=== PATIENT | female | born 1945 | race Caucasian/White ===

== ENCOUNTER 2016-12-03 15:20 | Emergency (ER) | payer MEDICARE, OTHER ==
[~2016-12-03] VITALS: Ht 162.6 cm; Wt 59.0 kg
[~2016-12-03 15:20] MED LIST: BENTYL10 MG PO; BISACODYL10 MG RC; BUPROPION XL300 MG PO; CHILDREN'S ASPI81 MG PO; CYCLOBENZAPRINE10 MG PO; CYCLOBENZAPRINE5 MG PO; GABAPENTIN400 MG PO; GAS-X80 MG PO; IMDUR60 MG PO; KLOR-CON 1010 MEQ PO; LASIX40 MG PO; LEVAQUIN500 MG PO; LIPITOR80 MG GT; LIPITOR80 MG PO; LISINOPRIL5 MG PO; MORPHINE SULFATE PO; MS CONTIN60 MG PO; NAPROXEN375 MG PO; NAPROXEN500 MG PO; NITROGLYCERIN0.4 MG SL; NORCO 5-325 TA1 EACH PO; PERCOCET 10-321 EACH PO; PLAVIX75 MG PO; PREDNISONE20 MG PO; PROVENTIL HFA6.7 GM INH; PYRIDIUM200 MG PO; SENOKOT-S TABL1 EACH PO; SULFAMETHOXAZO1 EAC1 PO; TOPROL XL50 MG PO
== END 2016-12-03 15:49 | disposition home or self-care (01) ==
LOC: ED 15:20
PROC: 0HQ4XZZ Repair Neck Skin, External Approach (ICD-10-PCS; principal; 2016-12-03)
DX: S01.01XA Laceration without foreign body of scalp, initial encounter (principal); I25.10 Atherosclerotic heart disease of native coronary artery without angina pectoris; Z98.84 Bariatric surgery status; Z90.49 Acquired absence of other specified parts of digestive tract; Z88.5 Allergy status to narcotic agent; Z79.899 Other long term (current) drug therapy; X58.XXXA Exposure to other specified factors, initial encounter
CPT/HCPCS: 12001; 90471; 90715; 99282

== ENCOUNTER 2017-06-07 07:49 | Emergency (ER) | payer MEDICARE, OTHER ==
[~2017-06-07] VITALS: Ht 162.6 cm; Wt 59.0 kg
--- OUTSIDE RECORDS SUMMARY | ~2017-06-07 | XMS | Clinical Summary ---
Demographics + + + | Address | [address] | | | [place] [address] | + + + | Home Phone | | + + + | Preferred Language | Unknown | + + + | Marital Status | | + + + | Muslim Affiliation | PRO | + + + | Race | White | + + + | Ethnic Group | Not or | + + + Author + + + | Author | [facility] | + + + | Organization | [facility] | + + + | Address | Unknown | + + + | Phone | Unavailable | + + + Support + + + + + | Name | Relationship | Address | Phone | + + + + + | [place] | ECON | [address] | | | | | [place] | | | | | [address] | | + + + + + Care Team Providers + +------+ + | Care Vessel Welder Name | Role | Phone | + +------+ + | Tuan Chan MD | PP | | + +------+ + Source Comments AMY is fully live on both [facility] and [facility] Allergies + + + + + [...] | | | | (FLU SHOT) | 7 | | | + + + + + Results Not on filefrom Last 3 Months
--- OUTSIDE RECORDS SUMMARY | ~2017-06-07 | XMS | Clinical Summary ---
Demographics + + + | Address | [address] | | | [place] [address] | + + + | Home Phone | | + + + | Preferred Language | Unknown | + + + | Marital Status | | + + + | Gnosticist Affiliation | PRO | + + + | Race | White | + + + | Ethnic Group | Not or | + + + Author + + + | Author | [facility] | + + + | Organization | [facility] | + + + | Address | Unknown | + + + | Phone | Unavailable | + + + Support + + + + + | Name | Relationship | Address | Phone | + + + + + | [address] [address] | ECON | [address] | | | | | [place] | | | | | [address] | | + + + + + Care Team Providers + +------+ + | Care Reflow Operator Name | Role | Phone | + +------+ + | Tuan Chan MD | PP | | + +------+ + Source Comments AMY is fully live on both [facility] Amb[facility] and [facility] InPatient.Replaced By [facility] Allergies + + + + [...]
[2017-09-08] MEDS ORDERED: KETOROLAC TROME10 MG PO (13:19)
== END 2017-06-07 08:51 | disposition home or self-care (01) ==
LOC: ED 07:49
DX: S63.501A Unspecified sprain of right wrist, initial encounter (principal); S53.409A Unspecified sprain of unspecified elbow, initial encounter; Z87.891 Personal history of nicotine dependence; Z88.5 Allergy status to narcotic agent; Z79.899 Other long term (current) drug therapy; W01.0XXA Fall on same level from slipping, tripping and stumbling without subsequent striking against object, initial encounter
CPT/HCPCS: 73080; 73110; 99283

== ENCOUNTER 2017-07-11 19:11 | Emergency (ER) | payer MEDICARE, OTHER ==
[~2017-07-11] VITALS: Ht 162.6 cm; Wt 72.6 kg
--- OUTSIDE RECORDS SUMMARY | ~2017-07-11 | XMS | Clinical Summary ---
Demographics + + + | Address | [address] | | | [place] [address] | + + + | Home Phone [...] [facility] | | | and [place] | + + + | Organization | [facility] | | | and [place] | + + + | Address | Unknown | + + + | Phone | Unavailable | + + + Support + + +---------+ + | Name | Relationship | Address | Phone | + + +---------+ + | [place] BLANK[place]IP | ECON | Unknown | | + + +---------+ + | Najma Krishnamurthy | ECON | Unknown | | + + +---------+ + | Najma Sanches | ECON | Unknown | | + + +---------+ + Care Team Providers + +------+ + | Care Respiratory Technician Name | Role | Phone | + +------+ + | Tuan Chan MD | PP | | + +------+ + Allergies + + + + + + | Active Allergy | Reactions | Severity | Noted | Comments | | | | | Date | | + + + + + + | Codeine | Rash | Low | 06/12/19 | | | | | | 16 | | + + + + + + Current Medications + + +--------+---------+------+------+-------+ | Prescription | Sig. | Disp. | Refills | Star | End | Statu | | | | | | t | Date | s | | | | | | Date | | | + + +--------+---------+------+------+-------+ | metoprolol | Take 25 mg by mouth | | | | | Activ | | succinate | Daily. | | | | | e | | (TOPROL-XL) 25 mg 24 | | | | | | | | hr tablet | | | | | | | + + +--------+---------+------+------+-------+ | clopidogrel | Take 75 mg by mouth | | | | | Activ | | (PLAVIX) 75 mg | Daily. | | | | | e | | tablet | | | | | | | + + +--------+---------+------+------+-------+ | lisinopril | Take 20 mg by mouth | | | | | Activ | | (PRINIVIL, ZESTRIL) | Daily. | | | | | e | | 20 mg tablet | | | | | | | + + +--------+---------+------+------+-------+ | potassium chloride | Take 10 mEq by mouth | | | | | Activ | | (K-DURRAJI-CON) 10 | Daily. | | | | | e | | MEQ ER tablet | | | | | | | + + +--------+---------+------+------+-------+ | dicyclomine | Take 10 mg by mouth | | | | | Activ | | (BENTYL) 10 mg | every 6 hours as | | | | | e | | capsule | needed (take 1-2 | | | | | | | | tablets by mouth | | | | | | | | every 6 hours as | | | | | | | | needed for abdominal | | | | | | | | pain). | | | | | | + + +--------+---------+------+------+-------+ | morphine (MSIR) 30 | Take 30 mg by mouth | | | | | Activ | | MG tablet | 2 times daily. Take | | | | | e | | | 1 tablet by mouth at | | | | | | | | 2 am and 1 tablet | | | | | | | | and 2 pm | | | | | | + + +--------+---------+------+------+-------+ | | Take 1 tablet by | | | | | Activ | | oxyCODONE-acetaminop | mouth 4 times daily | | | | | e | | hen (PERCOCET) | as needed for Pain. | | | | | | | 10-325 mg per tablet | | | | | | | + + +--------+---------+------+------+-------+ | atorvaSTATin | Take 1 tablet by | 30 | 1 | 03/1 | | Activ | | (LIPITOR) 80 MG | mouth nightly. | tablet | | 420 | | e | | tablet | | | | 16 | | | + + +--------+---------+------+------+-------+ | miconazole | Bid to rash | 14 g | 1 | 05/29 | | Activ | | (MICATIN) 2% cream | | | | 4/20 | | e | | | | | | 16 | | | + + +--------+---------+------+------+-------+ Active Problems + + + | Problem | Noted Date | + + + | Coronary artery disease involving coronary bypass graft with | 06/12/2015 | | unstable angina pectoris (HCC) | | + + + | Stented [...] pain | 06/11/2015 | + + + Social History + +-------+ [...] on file | | + + + Last Filed Vital Signs + + + + | Vital Sign | Reading | Time Taken | + + + + | Blood Pressure | 163/64 | 06/12/2015726 PDT | + + + + | Pulse | 71 | 06/12/2015726 PDT | + + + + | Temperature | 36.7 C (98.1 F) | 06/12/2015726 PDT | + + + + | Respiratory Rate | 14 | 06/12/2015726 PDT | + + + + | Oxygen Saturation | 96% | 06/12/2015726 PDT | + + + + | Inhaled Oxygen | - | - | | Concentration | | | + + + + | Weight | 78.1 kg (172 lb 2.9 | 06/12/201550 PDT | | | oz) | | + + + + | Height | 162.6 cm (5' 4") | 06/11/2015 2200 PDT | + + + + | Body Mass Index | 29.55 | 06/12/2015 0051 PDT | + + + + Plan of Treatment + + + + + | Health Maintenance | Due Date | Last Done | Comments | + + + + + | Hepatitis C | | | | | Screening | 5 | | | + + + + + | Vaccine: | | | | | Dtap/Tdap/Td (1 - | 4 | | | | Tdap) | | | | + + + + + | BREAST CANCER | | | | | SCREENING (MAMM Q2 | 5 | | | | YEARS 50-74) | | | | + + + + + | COLON CANCER | | | | | SCREENING | 5 | | | | (COLONOSCOPY EVERY | | | | | 10 YEARS 50-75) | | | | + + + + + | Vaccine: Zoster (#1) | | | | | | 5 | | | + + + + + | Vaccine: | | | | | Pneumococcal 65+ | 0 | | | | Low/Medium Risk (1 | | | | | of 2 - PCV13) | | | | + + + + + | Vaccine: Influenza | | | | | (Season Ended) | 8 | | | + + + + + Results Not on filefrom Last 3 Months Insurance + +--------+ +--------+ +---------+ | Payer | Benefi | Subscriber | Type | Phone | Address | | | t Plan | ID | | | | | | / | | | | | | | Group | | | | | + +--------+ +--------+ +---------+ | MEDICARE | MEDICA | xxxxxxxxxx | Medica | [phone] | | | | RE | | re | [phone] | | | | PART A | | | | | | | AND B | | | | | + +--------+ +--------+ +---------+ | [place]ICAID [place] | MEDICA | xxxxxxxx | Medica | [phone] | | | [place] | | id | [phone] | | | | PLUS | | | | | + +--------+ +--------+ +---------+ + +--------+ +--------+ + + | Guarantor Name | Accoun | Relation to | Date | Phone | Billing Address | | | t Type | Patient | of | | | | | | | | | | + +--------+ +--------+ + + | GERMAINE CARIAS | Person | Self [birth year] Home: | [address] | | D | al/Fam | | 1946 | [phone] | [address] [place], | | | [place] | | | [address] | [place] [address] | + +--------+ +--------+ + +
--- OUTSIDE RECORDS SUMMARY | ~2017-07-11 | XMS | Clinical Summary ---
Demographics + + + | Address | [address] | | | [place] [address] | + + + | Home Phone | | + + + | Preferred Language | Unknown | + + + | Marital Status | | + + + | Catholic Affiliation | PRO | + + + | Race | White | + + + | Ethnic Group | Not or | + + + Author + + + | Author | [facility] | + + + | Organization | [facility] | + + + | Address | Unknown | + + + | Phone | Unavailable | + + + Support + + + + + | Name | Relationship | Address | Phone | + + + + + | [place] | ECON | [address] | | | | | [place] | | | | | [address] | | + + + + + Care Team Providers + +------+ + | Care Embroidery Designer Name | Role | Phone | + +------+ + | Tuan Chan MD | PP | | + +------+ + Source Comments AMY is fully live on both [facility] Ambulatory and [facility] InPatient.Replaced By [facility] Allergies + + + + + + | Active Allergy | Reactions | Severity | Noted | Comments | | | | | Date | | + + + + + + | Codeine | Hives, Rash | | 11/21/19 | | | | | | 06 | | + + + + + + Current Medications + + +---------+---------+------+------+-------+ | Prescription | Sig. | Disp. | Refills | Star | End | Statu | | | | | | t | Date | s | | | | | | Date | | | + + +---------+---------+------+------+-------+ | ALBUTEROL 90 | inhale 1 puff by | | | | | Activ | | MCG/ACTUATION | inhalation route | | | | | e | | AEROSOL INHALER | every 4-6 hours as | | | | | | | | needed | | | | | | + + +---------+---------+------+------+-------+ | bumetanide 1 mg | 1 tab daily | | | | | Activ | | Oral Tablet | | | | | | e | + + +---------+---------+------+------+-------+ | buPROPion SR | 1 tablet daily | | | | | Activ | | (WELLBUTRIN SR) 150 | | | | | | e | | mg Oral Tablet | | | | | | | | Sustained Release | | | | | | | + + +---------+---------+------+------+-------+ | lisinopril 5 mg | take 1 tablet (5 mg) | | | | | Activ | | Oral Tablet | by oral route once | | | | | e | | | daily | | | | | | + + +---------+---------+------+------+-------+ | | Take 1 Tab by mouth | | | | | Activ | | oxyCODONE-acetaminop | every six hours as | | | | | e | | hen (PERCOCET) | needed. Not to | | | | | | | 10-325 mg Oral | exceed 12 tablets | | | | | | | tablet | per any 24 hour | | | | | | | | period. | | | | | | + + +---------+---------+------+------+-------+ | morphine ER 60 mg | Take 60 mg by mouth | | | | | Activ | | Oral tablet extended | once daily. | | | | | e | | release | | | | | | | + + +---------+---------+------+------+-------+ | potassium chloride | Take 10 mEq by mouth | | | | | Activ | | SR 10 mEq Oral | once daily. | | | | | e | | tablet,ER | | | | | | | | particles/crystals | | | | | | | + + +---------+---------+------+------+-------+ | metoprolol | Take 50 mg by mouth | | | | | Activ | | succinate 50 mg Oral | once daily. | | | | | e | | tablet extended | | | | | | | | release 24 hr | | | | | | | + + +---------+---------+------+------+-------+ | acetaminophen 325 | Take 1-2 Tabs by | | | 01/2 | | Activ | | mg Oral tablet | mouth every six | | | 5/20 | | e | | | hours as needed. | | | 13 | | | + + +---------+---------+------+------+-------+ | white | Instill 1 Each into | 3.5 g | 0 | /2 | | Activ | | petrolatum-mineral | the left eye once | | | 20 | | e | | oil 83-15 % | daily at bedtime. | | | 13 | | | | Ophthalmic Ointment | | | | | | | + + +---------+---------+------+------+-------+ | triamcinolone | Apply to affected | 15 g | 0 | /2 | | Activ | | acetonide 0.1 % | area two times | | | 20 | | e | | Topical Ointment | daily. Apply thin | | | 13 | | | | | film to affected | | | | | | | | areas. | | | | | | + + +---------+---------+------+------+-------+ | clopidogrel | Take 1 Tab by mouth | 1 Tab | 0 | /2 | | Activ | | (PLAVIX) 75 mg Oral | once daily. Do not | | | 08/17 | | e | | tablet | re-start this | | | 13 | | | | | medication until | | | | | | | | 04/29/2012. | | | | | | + + +---------+---------+------+------+-------+ Active Problems + + + | Problem | Noted Date | + + + | Cervical spine fracture (HCC) | 04/21/2012 | + + + | Abdominal hernia | 08/05/2008 | + + + + + | Overview: ICD10 | + + + + + | Panniculitis | 01/15/2008 | + + + | Intertrigo | 01/15/2008 | + + + | Achalasia | 03/03/2006 | + + + | Obesity | 03/03/2006 | + + + | Dysmetabolic syndrome X | 11/21/2005 | + + + | CAD (coronary artery disease) | 11/21/2005 | + + + | Sleep apnea | 11/21/2005 | + + + | Gout | 11/21/2005 | + + + | Type II or unspecified type diabetes mellitus with peripheral | 11/21/2005 | | circulatory disorders, uncontrolled(250.72) | | + + + | Dyslipidemia | 11/21/2005 | + + + Immunizations + + + + | Name | Dates Previously Given | Next Due | + + + + | Pneumococcal 23 | 04/24/2012 | | + + + + Family History + + +------+ + | Medical History | Relation | Name | Comments | + + +------+ + | Heart Disease | Brother | | CHF | + + +------+ + | Diabetes | Mother | | | + + +------+ + | Heart Disease | Mother | | | + + +------+ + + +------+--------+ + | Relation | Name | Status | Comments | + +------+--------+ + | Brother | | | | + +------+--------+ + | Mother | | | | + +------+--------+ + Social History + + + +--------+ [...] Pressure | 139/83 | 04/24/2012 7:44 AM PST | + + + + | Pulse | 57 | 04/24/2012 7:44 AM PST | + + + + | Temperature | 36.6 C (97.9 F) | 04/24/2012 7:44 AM PST | + + + + | Respiratory Rate | 18 | 04/24/2012 7:44 AM PST | + + + + | Oxygen Saturation | 98% | 04/24/2012 7:44 AM PST | + + + + | Inhaled Oxygen | - | - | | Concentration | | | + + + + | Weight | 84.5 kg (186 lb 4.6 | 04/21/2012 9:45 PM PST | | | oz) | | + + + + | Height | 162.6 cm (5' 4") | 04/22/2012 8:00 AM PST | + + + + | Body Mass Index | 31.98 | 04/21/2012 9:45 PM PST | + + + + Plan of Treatment + + + + + | Health Maintenance | Due Date | Last Done | Comments | + + + + + | INFLUENZA VACCINE | | | | | (FLU SHOT) | 8 | | | + + + + + Results Not on filefrom Last 3 Months
--- OUTSIDE RECORDS SUMMARY | ~2017-07-11 | XMS | Clinical Summary ---
Demographics + + + | Address | [address] | | | [place] [address] | + + + | Home Phone | | + + + | Preferred Language | Unknown | + + + | Marital Status | | + + + | Rastafarian Affiliation | [phone] | + + + | Race | Unknown | + + + | Ethnic Group | Unknown | + + + Author + + + | Author | [facility] | | | and [place] | + + + | Organization | [facility] | | | [...] Team Providers + +------+ + | Care Catcher Plug Name | Role | Phone | + [...] Self | [birth year] | Home: | [address] | | D | al/Fam | | 1946 | [phone] | [address] [place], | | | [place] | | | [phone] | [place] [address] | + +--------+ +--------+ + +
--- OUTSIDE RECORDS SUMMARY | ~2017-07-11 | XMS | Clinical Summary ---
Demographics + + + | Address | [address] | | | [place] [address] | + + + | Home Phone [...] [place] | | | | | [address] | | + + + + + Care Team Providers + +------+ + | Care Gut Snatcher Name | Role | Phone | + +------+ + | Tuan Chan MD | PP | | + +------+ + Source Comments AMY is fully live on both [facility] Ambulatory and [facility] InPatient.[facility] Allergies + + + + [...]
[2017-09-08] MEDS ORDERED: KETOROLAC TROME10 MG PO (13:19)
== END 2017-07-11 21:35 | disposition home or self-care (01) ==
LOC: ED 19:11
DX: E87.6 Hypokalemia (principal); Z86.73 Personal history of transient ischemic attack (TIA), and cerebral infarction without residual deficits; Z87.891 Personal history of nicotine dependence; Z88.5 Allergy status to narcotic agent; Z79.899 Other long term (current) drug therapy
CPT/HCPCS: 80053; 85025; 85610; 85730; 99283

== ENCOUNTER → 2017-09-08 | Emergency (ER) | payer MEDICARE, OTHER ==
[~2017-09-08] VITALS: Ht 162.6 cm; Wt 72.6 kg
[~2017-09-08] MED LIST changes: +KETOROLAC TROME10 MG PO
== END ==
LOC: ED 11:41
DX: R07.81 Pleurodynia (principal); Z86.73 Personal history of transient ischemic attack (TIA), and cerebral infarction without residual deficits; Z87.891 Personal history of nicotine dependence; Z88.5 Allergy status to narcotic agent; Z79.899 Other long term (current) drug therapy; W19.XXXA Unspecified fall, initial encounter
CPT/HCPCS: 71101; 99283

== ENCOUNTER 2017-09-20 15:51 | Emergency (ER) | payer MEDICARE, OTHER ==
[~2017-09-20] VITALS: Ht 162.6 cm; Wt 73.5 kg
[2017-09-20] MEDS ORDERED: MORPHINE SULFAT60 MG PO (16:16)
[2017-09-20] MEDS ORDERED: MORPHINE SULFAT30 M1 PO (16:16)
[2017-09-20] MEDS ORDERED: LIPITOR20 MG (16:17)
[2017-09-20] MEDS ORDERED: HYDROCHLOROTH12.5 M1 PO (16:17)
[2017-09-20] MEDS ORDERED: NORCO 5-325 TA1 EACH PO (18:50)
--- NOTE | 2017-09-22 07:37 | EKG ---
[facility] [address] [place] [address] Signed Normal sinus rhythm Nonspecific T wave abnormality Abnormal ECG Confirmed by RENE BISHOP MD ([id number]) on 09/22/2017 7:37:49 AM Electronically Signed By: RENE BISHOP MD 09/22/17 0737 PATIENT NAME: BUTCH MANE Electrocardiogram DATE OF : 43 PHYSICIAN: RENE BISHOP MD REPORT #: [id number] REPORT IS CONFIDENTIAL AND NOT TO BE RELEASED WITHOUT AUTHORIZATION
== END 2017-09-20 19:19 | disposition home or self-care (01) ==
LOC: ED 15:51 → EDBD 15:52 → ED 15:52
DX: R07.89 Other chest pain (principal); Z79.899 Other long term (current) drug therapy
CPT/HCPCS: 71045; 80053; 84484; 85025; 85610; 93005; 93010; 96374; 99284; J2405

== ENCOUNTER 2018-06-07 08:31 | Emergency (ER) | payer MEDICARE, OTHER ==
[~2018-06-07] VITALS: Ht 162.6 cm; Wt 73.5 kg
[~2018-06-07 08:31] MED LIST changes: +HYDROCHLOROTH12.5 M1 PO; +LIPITOR20 MG; +MORPHINE SULFAT30 M1 PO; +MORPHINE SULFAT60 MG PO
--- OUTSIDE RECORDS SUMMARY | 2018-06-07 08:34 | XMS ---
PreManage Notification: BUTCH MANE Security [place] Events No recent Security Events currently on file CRITERIA MET - [facility] - Has Care Guidelines - POLST - PDMP - [facility] - 2 Visits in 30 Days CARE PROVIDERS Tuan Chan MD Family Medicine Current PHONE: Unknown Tuan Chan MD Primary Care Current PHONE: Unknown orsarah Case or Hand Trimmer Current PHONE: Unknown David has no Care Guidelines for this patient. Care History Medical/Surgical 09/09/2017 [facility] - CHW spoke with patient PCP office. Dr Chan scheduled a follow up visit with patient for Friday09/15/17 @ 1:00PM. - CHW stated the concerns with her fall and to have her medications reviewed for fall risks. - CHW was not able to contact patient and patient voicemail is full and can\T\ #39;t accept calls. This patient has had 5 or more Emergency Department visits in the last 12 months.\T\nbsp; Patient requires education on the scope and purpose of the ED as an acute care provider not a Primary Care Provider and should not be utilized for chronic conditions.\T\nbsp; If patient returns to ED please contact Community Health WorkerLizz at [phone]. These are guidelines and the provider should exercise clinical judgment when providing care. E.D. VISIT COUNT (12 MO.) 2 [facility]. [facility] TOTAL 9 NOTE: Visits indicate total known visits. ED/UCC VISIT TRACKING (12 MO.) 06/07/2018 08:32 [place] [place] TYPE: Emergency COMPLAINT: - CHEST PRESSURE 05/18/2018 15:[address] [place] TYPE: Emergency DIAGNOSES: - Extremity Weakness - Other symptoms and signs involving the musculoskeletal system - Hypokalemia 02/03/2018 10:26 [facility] [place] TYPE: Emergency DIAGNOSES: - Essential (primary) hypertension - Patient's other noncompliance with medication regimen - rash - Rash and other nonspecific skin eruption 01/03/2018 09:16 [place] TYPE: Emergency DIAGNOSES: - Cellulitis of chest wall - Rash 10/09/2017 18:40 [facility] [place] TYPE: Emergency DIAGNOSES: - Abdominal Pain - Person with feared health complaint in whom no diagnosis is made 09/20/2017 15:52 [place] [place] TYPE: Emergency COMPLAINT: - COUGH DIAGNOSES: - Other terminal worker (current) drug therapy - Other chest pain 09/08/2017 11:42 [facility] [place] TYPE: Emergency COMPLAINT: - L RIB PAIN/FALL DIAGNOSES: - Personal history of transient ischemic attack (TIA), and cerebral infarction without residual deficits - Other senior care (current) drug therapy - Allergy status to narcotic agent status - Unspecified fall, initial encounter - Pleurodynia - Personal history of nicotine dependence 07/11/2017 19:12 [facility] [place] TYPE: Emergency COMPLAINT: - POSS RECTAL BLEES DIAGNOSES: - Other senior care (current) drug therapy - Hypokalemia - Personal history of nicotine dependence - Hemorrhage of anus and rectum - Personal history of transient ischemic attack (TIA), and cerebral infarction without residual deficits - Allergy status to narcotic agent status 06/07/2017 07:52 [facility] [place] TYPE: Emergency COMPLAINT: - R ARM PAIN/INJURY DIAGNOSES: - Fall on same level from slipping, tripping and stumbling without subsequent striking against object, initial encounter - Other terminal worker (current) drug therapy - Allergy status to narcotic agent status - Unspecified sprain of right wrist, initial encounter - Unspecified sprain of unspecified elbow, initial encounter - Personal history of nicotine dependence - Unspecified injury of right wrist, hand and finger(s), initial encounter INPATIENT VISIT TRACKING (12 MO.) 05/18/2018 15:14 [facility] [place] TYPE: General Medicine DIAGNOSES: - Cerebral infarction, unspecified - Other symptoms and signs involving the musculoskeletal system - Hypokalemia [email or web address]
[2018-06-07] MEDS ORDERED: ASPIR 8181 MG PO (09:40)
[2018-06-07] MEDS ORDERED: FERROUSUL325 MG PO (09:47)
[2018-06-07] MEDS ORDERED: FLEET ENEMA133 ML PR (09:48)
[2018-06-07] MEDS ORDERED: METOPROLOL TART25 MG PO (09:55)
--- NOTE | 2018-06-07 12:19 | EKG ---
[facility] [address] [place] [address] Signed Sinus bradycardia T wave abnormality, consider lateral ischemia Abnormal ECG When compared with ECG of 20-SEP-2017 16:01, Nonspecific T wave abnormality now evident in Inferior leads Inverted T waves have replaced nonspecific T wave abnormality in Lateral leads Confirmed by BRIGITTE WEN DO ([id number]) on 06/07/2018 12:19:15 PM Electronically Signed By: BRIGITTE WEN DO 06/07/18 1219 PATIENT NAME: ANTONIETTABUTCHGINA PARKS Electrocardiogram DATE OF : 43 PHYSICIAN: BRIGITTE WEN DO REPORT #: [id number] REPORT IS CONFIDENTIAL AND NOT TO BE RELEASED WITHOUT AUTHORIZATION
== END 2018-06-07 13:11 | disposition home or self-care (01) ==
LOC: ED 08:31
PROC: 0T9B70Z Drainage of Bladder with Drainage Device, Via Natural or Artificial Opening (ICD-10-PCS; principal; 2018-06-07)
DX: R07.89 Other chest pain (principal); Z95.5 Presence of coronary angioplasty implant and graft; Z86.73 Personal history of transient ischemic attack (TIA), and cerebral infarction without residual deficits; Z87.891 Personal history of nicotine dependence; Z98.84 Bariatric surgery status; Z88.5 Allergy status to narcotic agent; Z79.899 Other long term (current) drug therapy; Z79.82 Long term (current) use of aspirin
CPT/HCPCS: 36415; 51701; 71045; 74176; 80053; 81001; 83605; 83690; 83880; 84484; 85025; 85610; 93005; 93010; 99285-25

== ENCOUNTER 2018-06-17 20:19 | Emergency (ER) | payer MEDICARE, OTHER ==
[~2018-06-17] VITALS: Ht 162.6 cm; Wt 73.5 kg
--- OUTSIDE RECORDS SUMMARY | ~2018-06-17 | XMS | Encounter Summary ---
Demographics + + + | Address | [address] | | | [place] [address] | + + + | Home Phone | | + + + | Preferred Language | Unknown | + + + | Marital Status | | + + + | Mosque Affiliation | PRO | + + + | Race | White | + + + | Ethnic Group | Not or | + + + Author + + + | Author | [facility] | + + + | Organization | [facility] | + + + | Address | Unknown | + + + | Phone | Unavailable | + + + Support + + + + + | Name | Relationship | Address | Phone | + + + + + | [place] | ECON | [address] | | | | | [place] | | | | | [address] | | + + + + + Care Team Providers + +------+ + | Care Lead C Developer Name | Role | Phone | + +------+ + | Tuan Chan MD | PCP | | + +------+ + Encounter Details +--------+--------+ + + + | Date | Type | Department | Care Team | Description | +--------+--------+ + + + | 05/18/ | Intake | Transfer Center | | N/A | | 2019 | | [address] | | | | | | [place], | | | | | | [place] [address] | | | +--------+--------+ + + + [...] + +---------+ + | Alcohol Use | Drinks/We | oz/Week | Comments | | | ek | | | + + +---------+ + | No | | | quit 18 years ago | + + +---------+ + + + + | Sex Assigned at | Date Recorded | | | | + + + | Not on file | | + + + as of this encounter Plan of Treatment Not on fileas of this encounter Visit Diagnoses Not on filein this encounter"
--- OUTSIDE RECORDS SUMMARY | ~2018-06-17 | XMS | Clinical Summary ---
Demographics + + + | Address | [address] | | | [place] [address] | + + + | Home Phone | | + + + | Preferred Language | Unknown | + + + | Marital Status | | + + + | Faith Affiliation | PRO | + + + | Race | White | + + + | Ethnic Group | Not or | + + + Author + + + | Author | [facility] | + + + | Organization | [facility] | + + + | Address | Unknown | + + + | Phone | Unavailable | + + + Support + + + + + | Name | Relationship | Address | Phone | + + + + + | POOJA BLANKENSHIP | ECON | [address] | | | | | [place] | | | | | [address] | | + + + + + Care Team Providers + +------+ + | Care Automatic Lehr Operator Name | Role | Phone | + +------+ + | Tuan Chan MD | PP | | + +------+ + Source Comments AMY is fully live on both [facility] Amb[facility] and [facility] InPatient.[facility] Allergies + + [...] Dyslipidemia | 11/21/2005 | + + + Encounters +--------+--------+ + + + | Date | Type | Specialty | Care Team | Description | +--------+--------+ + + + | 05/18/ | Intake | | | N/A | | 2019 | | | | | +--------+--------+ + + + from Last 3 Months Immunizations + + + + | Name [...] | + + + + + | Pneumococcal (Adult) | | 04/24/2012 | | | (2 of 2 - PCV13) | 4 | | | + + + + + | Influenza (Flu) | | | | | vaccination (#1) | 8 | | | + + + + + Results Not on filefrom Last 3 Months Insurance + +--------+ +--------+ + + | Payer | Benefi | Subscriber | Type | Phone | Address | | | t Plan | ID | | | | | | / | | | | | | | Group | | | | | + +--------+ +--------+ + + | MEDICARE | MEDICA | xxxxxxxxxx | Medica | [phone] | [address] | | | RE A & | | re | [phone] | [place] [address] | | | B | | | | | + +--------+ +--------+ + + | [place] | OHP | xxxxxxxx | Medica | [phone] | [address] [address] | | | PLUS | | id | [phone] | [place] [address] | | | OPEN | | | | | | | CARD | | | | | + +--------+ +--------+ + + + +--------+ +--------+ + + | Guarantor Name | Accoun | Relation to | Date | Phone | Billing Address | | | t Type | Patient | of | | | | | | | | | | + +--------+ +--------+ + + | BUTCH CARIAS | Person | Self [birth year] Home: | [facility] | | | al/Fam | | 1946 | [phone] | [address] [place] | | | demetrius | | | [phone] | + +--------+ +--------+ + +
--- OUTSIDE RECORDS SUMMARY | ~2018-06-17 | XMS | Encounter Summary ---
Demographics + + + | Address | [address] | | | [place] [address] | + + + | Home Phone | | + + + | Preferred Language | Unknown | + + + | Marital Status | | + + + | Holiness Affiliation | PRO | + + + | Race | White | + + + | Ethnic Group | Not or | + + + Author + + + | Author | [facility] | + + + | Organization | [facility] | + + + | Address | Unknown | + + + | Phone | Unavailable | + + + Support + + + + + | Name | Relationship | Address | Phone | + + + + + | POOJA BLANKENSHIP | ECON | [address] | | | | | [place] | | | | | [address] | | + + + + + Care Team Providers + +------+ + | Care Arresting Gear Operator Name | Role | Phone | [...] | | | | | | [place] [address] | | | +--------+--------+ + + + [...]
--- OUTSIDE RECORDS SUMMARY | ~2018-06-17 | XMS | Clinical Summary ---
Demographics + + + | Address | [address] | | | [place] [address] | + + + | Home Phone | | + + + | Preferred Language | Unknown | + + + | Marital Status | | + + + | Lutheran Affiliation | PRO | + + + | Race | White | + + + | Ethnic Group | Not or | + + + Author + + + | Author | [facility] | + + + | Organization | [facility] | + + + | Address | Unknown | + + + | Phone | Unavailable | + + + Support + + + + + | Name | Relationship | Address | Phone | + + + + + | POOJA BLANKENSHIP | ECON | [address] | | | | | [place] | | | | | [address] | | + + + + + Care Team Providers + +------+ + | Care Municipal Court Magistrate Name | Role | Phone | + +------+ + | Tuan Chan MD | PP | | + +------+ + Source Comments AMY is fully live on both [facility] and [facility] InPatient.[facility] Allergies + + + + [...] | MEDICA | xxxxxxxxxx | Medica | [phone] | [address] | | | RE A & | | re | [phone] | [place] [address] | | | B | | | | | + +--------+ +--------+ + + | MEDICAID [place] | OHP | xxxxxxxx | Medica | [phone] | [address] [address] | | | PLUS | | id | [phone] | [place] [address] | | | OPEN | | | [...] | Self | [birth year] | Home: | [facility] | | | al/Fam | | 1946 | [phone] | [address] [place] | | | [place] | | | [phone] | [phone] | + +--------+ +--------+ + +
[~2018-06-17 20:19] MED LIST changes: +ASPIR 8181 MG PO; +FERROUSUL325 MG PO; +FLEET ENEMA133 ML PR; +METOPROLOL TART25 MG PO
[2018-06-17] MEDS ORDERED: K-TAB ER20 MEQ PO (20:39)
[2018-06-17] MEDS ORDERED: CEFDINIR300 MG PO (20:39)
[2018-06-17] MEDS ORDERED: PREVNAR 13 SYR0.5 ML (20:40)
== END 2018-06-17 21:47 | disposition home or self-care (01) ==
LOC: ED 20:19
DX: S00.83XA Contusion of other part of head, initial encounter (principal); W19.XXXA Unspecified fall, initial encounter; Z86.73 Personal history of transient ischemic attack (TIA), and cerebral infarction without residual deficits; Z87.891 Personal history of nicotine dependence; Z88.5 Allergy status to narcotic agent; Z79.899 Other long term (current) drug therapy; Z79.82 Long term (current) use of aspirin
CPT/HCPCS: 70450; 80053; 81001; 85025; 85610; 85730; 99284-25

== ENCOUNTER 2018-08-20 16:11 | Observation (INO) | payer MEDICARE, OTHER ==
[~2018-08-20] VITALS: Ht 162.6 cm; Wt 69.0 kg
--- OUTSIDE RECORDS SUMMARY | ~2018-08-20 | XMS | Encounter Summary ---
Demographics + + + | Address | [address] | | | [place] [address] | + + + | Home Phone | | + + + | Preferred Language | Unknown | + + + | Marital Status | | + + + | Rastafari Affiliation | PRO | + + + | Race | White | + + + | Ethnic Group | Not or | + + + Author + + + | Author | [facility] | + + + | Organization | [facility] | + + + | Address | Unknown | + + + | Phone | Unavailable | + + + Support + + + + + | Name | Relationship | Address | Phone | + + + + + | Hector Mack | ECON | [address] | | | | | [place] | | | | | [address] | | + + + + + Care Team Providers + +------+ + | Care Hoisting Engineer Name | Role | Phone | + +------+ + | Tuan Chan MD | PCP | | + +------+ + Reason for Visit + + + | Reason | Comments | + + + | Urolithiasis | | + + + | Post Op | | + + + Encounter Details +--------+---------+ + + + | Date | Type | Department | Care Team | Description | +--------+---------+ + + + | 10/18/ | Office | Urology Adult | Noe Hdez, | Urolithiasis | | 2007 | Visit | [address] | MD [address] | (Primary Dx) | | | | Mail Code: CH10U | [place], [place] | | | | | [facility] | [address] | | | | | and Healing, | [phone] | | | | | Floor [place], [place] | | | | | | [address] | | | | | | [phone] | | | +--------+---------+ + + + Social History + + [...] + + documented as of this encounter Last Filed Vital Signs + + + + + | Vital Sign | Reading | Time Taken | Comments | + + + + + | Blood Pressure | 133/61 | 10/19/2007 1:03 PM | | | | | PDT | | + + + + + | Pulse | 51 | 10/19/2007 1:03 PM | | | | | PDT | | + + + + + | Temperature | - | - | | + + + + + | Respiratory Rate | - | - | | + + + + + | Oxygen Saturation | - | - | | + + + + + | Inhaled Oxygen | - | - | | | Concentration | | | | + + + + + | Weight | 91.8 kg (202 lb 4.8 | 10/19/2007 1:03 PM | | | | oz) | PDT | | + + + + + | Height | - | - | | + + + + + | Body Mass Index | 34.72 | 06/03/2007 3:28 PM | | | | | PST | | + + + + + documented in this encounter Progress Notes Darrell Macias - 10/19/2007 2:11 PM PDTFormatting of this note might be different from the o riginal. Urology Follow Up: Identification: Germaine Heard is a 61 y.o. female with a history of nephrolithiasis treated with HLL in May 2007. Subjective: Patient denies any flank pain. No nausea or emesis. No fever or chills. No dysuria. No hayden turia. Patient recently developed gout in her left 1st toe. Objective: BP 133/61 | Pulse 51 | Wt 91.763 kg (202 lbs 4.8 oz) Exam: General appearance: The patient appears healthy and comfortable, in no apparent distress, a nd is well developed and well nourished. Lungs: clear COR: regular without murmur Abdomen: soft, no tenderness to palpation, no palpable masses. Back: no spinous process, paraspinous muscular, or costovertebral angle tenderness UA: Component 10/19/2007 COLOR (UA DIP), POC shaji APPEARANCE (UA DIP), POC mod LEUKOCYTES (UA DIP), POC cloudy NITRITES (UA DIP), POC small UROBILINOGEN (UA DIP), POC neg PROTEIN (UA DIP), POC 30 PH (UA DIP), POC 6.5 BLOOD (UA DIP), POC large SPECIFIC GRAVITY (UA DIP), POC 1.015 KETONES (UA DIP), POC neg BILIRUBIN (UA DIP), POC neg GLUCOSE (UA DIP), POC neg Impression: 61 year old woman with hx of nephrolithiasis. Given symptoms of gout patient may have hyper uricosuria. Will treat potential UTI and repeat litholink. Plan: -TMP/SMX DS x3 days -F/U urine cx -Litholink in 2 wks -RTC in 6 wks to discuss litholink and to obtain renal u/s. The patient was seen and examined with my supervising provider Dr. Hdez who agrees with t he assessment and plan. Darrell Macias MD Urology Resident Division of Urology and Renal Transplantation [facility] oe Hdez - 10/19/2007 1:51 PM PDTI saw and evaluated Germaine Heard with Dr. Macias. I discussed the patient with Dr. Macias and agree with the findings and plan as documented in the encounter note. Noe Hdez MD documented in this encoun ter Plan of Treatment + +---------+--------+ + + | Name | Type | Priori | Associated Diagnoses | Order Schedule | | | | ty | | | + +---------+--------+ + + | US KIDNEY & BLADDER | Imaging | Routin | Urolithiasis | Ordered: 10/19/2007 | | | | e | | | + +---------+--------+ + + documented as of this encounter Procedures + +--------+ + + + | Procedure Name | Priori | Date/Time | Associated Diagnosis | Comments | | | ty | | | | + +--------+ + + + | CULTURE, URINE BACTI | Routin | 10/19/2007 | Urolithiasis | Results for this | | | e | 4:47 PM | | procedure are in the | | | | PDT | | results section. | + +--------+ + + + | UA 10 DIP POC | Routin | 10/19/2007 | Urolithiasis | Results for this | | | e | 1:09 PM | | procedure are in the | | | | PDT | | results section. | + +--------+ + + + documented in this encounter Results CULTURE, URINE BACTI (10/19/2007 4:47 PM PDT) + + + + + + | Component | Value | Ref Range | Performed | Pathologist | | | | | At | Signature | + + + + + + | SOURCE BODY | Urine Urine | | | | | SITE | | | | | + + + + + + | CULTURE | Urine Culture | | | | | RESULT | | | | | | | Source...............: | | | | | | Urine Urine | | | | | | Culture: Final | | | | | | Report: Multiple | | | | | | organism types | | | | | | suggesting | | | | | | contamination. Resubmit | | | | | | if clinically indicated. | | | | | | Final Report | | | | | | Resulted: / | | | | | | 23/ | | | | | | [facility] | | | | | | ([facility]) | | | | | | [place] | | | | | | [facility] | | | | | | [address] [address] | | | | | [address] | | | | | | [place] | | | | | | , [place] [id number]: | | | | | | Test performed at | | | | | | [facility] | | | | | | [facility]. | | | | + + + + + + + + | Specimen | + + | Urine - Urine | + + + + + + + | Performing | Address | City/State/Zipcode | Phone Number | | Organization | | | | + + + + + | [facility] | [address] | [place] [address] | | | LAB-MICRO | | | | + + + + + UA DIPSTICK ONLY, POC (10/19/2007 1:09 PM PDT) + +--------+ + + + | Component | Value | Ref Range | Performed | Pathologist | | | | | At | Signature | + +--------+ + + + | COLOR (UA | shaji | | [facility] | | | DIP), POC | | | OF CARE | | | | | | TESTS | | + +--------+ + + + | APPEARANCE | mod | | [facility] | | | (UA DIP), | | | OF CARE | | | POC | | | TESTS | | + +--------+ + + + | LEUKOCYTES | cloudy | Negative | [facility] | | | (UA DIP), | | | OF CARE | | | POC | | | TESTS | | + +--------+ + + + | NITRITES | small | Negative | [facility] | | | (UA DIP), | | | OF CARE | | | POC | | | TESTS | | + +--------+ + + + | UROBILINOGE | neg | 0.2 CATHI | [facility] | | | N (UA DIP), | | UNITS | OF CARE | | | POC | | | TESTS | | + +--------+ + + + | PROTEIN (UA | 30 | Negative to | [facility] | | | DIP), POC | | Trace mg/dL | OF CARE | | | | | | TESTS | | + +--------+ + + + | PH (UA | 6.5 | 5 - 8 | [facility] | | | DIP), POC | | | OF CARE | | | | | | TESTS | | + +--------+ + + + | BLOOD (UA | large | Negative | [facility] | | | DIP), POC | | | OF CARE | | | | | | TESTS | | + +--------+ + + + | SPECIFIC | 1.015 | 1.005 - 1.03 | [facility] | | | GRAVITY (UA | | | OF CARE | | | DIP), POC | | | TESTS | | + +--------+ + + + | KETONES (UA | neg | Negative mg/dL | [facility] | | | DIP), POC | | | OF CARE | | | | | | TESTS | | + +--------+ + + + | BILIRUBIN | neg | Negative | [facility] | | | (UA DIP), | | | OF CARE | | | POC | | | TESTS | | + +--------+ + + + | GLUCOSE (UA | neg | Negative to | [facility] | | | DIP), POC | | Trace mg/dL | OF CARE | | | | | | TESTS | | + +--------+ + + + + + | Specimen | + + | Urine | + + + + + + + | Performing | Address | City/State/Zipcode | Phone Number | | Organization | | | | + + + + + | [facility] | [address] | [place], [place] | | | [facility] | [address] | [address] | | | TESTS | | | | + + + + + | [facility] | [address] | [place], [place] | | | TESTS | [address] | [address] | | + + + + + documented in this encounter Visit Diagnoses + + | Diagnosis | + + | Urolithiasis - Primary Urinary calculus, unspecified | + + documented in this encounter"
--- OUTSIDE RECORDS SUMMARY | ~2018-08-20 | XMS | Encounter Summary ---
Demographics + + + | Address | [address] | | | [place] [address] | + + + | Home Phone | | + + + | Preferred Language | Unknown | + + + | Marital Status | | + + + | Anglican Affiliation | PRO | + + + | Race | White | + + + | Ethnic Group | Not or | + + + Author + + + | Author | [facility] | + + + | Organization | [facility] | + + + | Address | Unknown | + + + | Phone | Unavailable | + + + Support + + + + + | Name | Relationship | Address | Phone | + + + + + | Hector Mack | ECON | [address] | | | | | [place] | | | | | [address] | | + + + + + Care Team Providers + +------+ + | Care Warehouse Checker Name | Role | Phone | + +------+ + | Tuan Chan MD | PCP | | + +------+ + Reason for Visit + + + | Reason | Comments | + + + | Preop | | + + + | Urolithiasis | | + + + Encounter Details +--------+---------+ + + + | Date | Type | Department | Care Team | Description | +--------+---------+ + + + | 09/07/ | Office | Urology Adult | Noe Hdez, | Urolithiasis | | 2008 | Visit | [address] | MD [address] | (Primary Dx) | | | | Mail Code: CH10U | [place], [place] | | | | | [facility] | [address] | | | | | and Healing, | [phone] | | | | | Floor [place], [place] | | | | | | [address] | | | | | | [phone] | | | +--------+---------+ + + + [...] + + + | Blood Pressure | 156/76 | 09/07/2008 1:46 PM | | | | | PDT | | + + + + + | Pulse | 60 | 09/07/2008 1:46 PM | | | | | PDT [...] + + + + | Weight | 91.4 kg (201 lb 6.4 | 09/07/2008 1:46 PM | | | | oz) | PDT | | + + + + + | Height | - | - | | + + + + + | Body Mass Index | 35.68 | 05/10/2008 7:01 AM | | | | | PST | | + + + + + documented in this encounter Progress Notes Noe Hdez MD - 09/07/2008 2:25 PM PDTFormatting of this note might be different fro m the original. History of Present Illness: Germaine Heard is a 62 y.o. female is here today for followup of urolithiasis. She has had ureteroscopy and laser lithotripsy previously and she now has a right ureteral stent pl aced recently for an obstruction ureteral stone. Admitted tomorrow for right ureteroscopy an d laser lithotripsy. Urologic Problems: Urologic Problems PMH: Past Medical History Diagnosis Date Unspecified Arthropathy, Site Unspecified Cor Athrscl-Uns Vessel stent 1.5 years ago. Other General Symptoms DM w/o Complication Type II Pure Hypercholesterolemia Symptomatic Menopausal or Female Climacteric States GERD (Gastroesophageal Reflux Disease) Sleep Apnea Past Surgical History: Past Surgical History Procedure Date Pr cabg, vein, four 7 years ago Hx appendectomy Hx cholecystectomy Hx tonsil and adenoidectomy Hx gastric bypass Hx coronary stent placement Family History: Family History Problem Relation Heart Mother Diabetes Mother Heart Brother CHF Current outpatient prescriptions Medication Sig ALBUTEROL 90 MCG/ACTUATION AEROSOL INHALER inhale 1 puff by inhalation route every 4-6 hours as needed bacitracin 500 unit/g Topical Ointment by Topical route. To wound daily bumetanide 1 mg Oral Tablet 1 tab bid buPROPion SR (WELLBUTRIN SR) 150 mg Oral Tablet Sustained Release 1 tablet as needed clopidogrel (PLAVIX) 75 mg Oral Tablet take 1 tablet (75 mg) by oral route once daily hydrocodone-acetaminophen (NORCO) 10-325 mg Oral Tablet Take 1 Tab by mouth every four hours as needed Not to exceed 12 tablets per any 24 hour period. (Not to exceed 4000 mg of a cetaminophen from all products per 24 hour period.) hydrocodone-acetaminophen (NORCO) 10-325 mg Oral Tablet take 1 tablet by oral route yuly ry 4-6 hours as needed for pain lisinopril 5 mg Oral Tablet take 1 tablet (5 mg) by oral route once daily lovastatin 20 mg Oral Tablet take 1 tablet (20 mg) by oral route once daily with evenin g meal metaxalone (SKELAXIN) 800 mg Oral Tablet take 1 tablet (800 mg) by oral route 2-3 times per day as needed MORPHINE OR None Entered MULTIVITAMIN OR Take 1 tablet daily. nystatin 100,000 unit/g Topical Cream by Topical route three times daily. Apply liberal ly to the affected areas. oxycodone CR (OXYCONTIN) 10 mg Oral Tablet Sustained Release 12 hr Take 1 Tab by mouth every twelve hours. POTASSIUM OR Take 2 tablets daily. TOPROL XL OR None Entered Allergies Allergen Reactions Codeine Hives and Rash Objective: BP 156/76 | Pulse 60 | Wt 91.354 kg (201 lb 6.4 oz) Exam: General appearance: The patient appears healthy and comfortable, in no apparent distress, a nd is well developed and well nourished. Abdomen: soft, no tenderness to palpation, no palpable masses. Back: no spinous process, paraspinous muscular, or costovertebral angle tenderness on the l eft, mild on the right. Study Results: Not availble. Impression/Plan: Encounter Diagnoses Code Name Primary? Qualifier 592.9M Urolithiasis Yes Plan: UA DIPSTICK ONLY, POC Active urolithiasis on the right side, we will perform ureteroscopy and laser lithotripsy. PARQ: A complete PARQ conference was held with the patient who appears to understand the na ture of the procedure, the alternatives,and the risks, and all of her questions were answere d. She gives informed consent for surgery. elly Buckley - 1:34 PM PDT Review of Systems Constitutional: Reports diaphoresis. Skin: Reports rash and itching. Eyes: Reports blurred vision. Musculoskeletal: Reports back pain and joint pain. Psychiatric: Reports depression. All other systems reviewed and are negative. Physical Exam documented in this encou nter Plan of Treatment Not on filedocumented as of this encounter Procedures + +--------+ + + + | Procedure Name | Priori | Date/Time | Associated Diagnosis | Comments | | | ty | | | | + +--------+ + + + | UA 10 DIP POC | Routin | 09/07/2008 | Urolithiasis | Results for this | | | e | 2:19 PM | | procedure are in the | | | | PDT | | results section. | + +--------+ + + + documented in this encounter Results UA DIPSTICK ONLY, POC (09/07/2008 2:19 PM PDT) + +--------+ + + + | Component | Value | Ref Range | Performed | Pathologist | | | | | At | Signature | + +--------+ + + + | COLOR (UA | yellow | | [facility] | | | DIP), POC | | | OF CARE | | | | | | TESTS | | + +--------+ + + + | APPEARANCE | hazy | | [facility] | | | (UA DIP), | | | OF CARE | | | POC | | | TESTS | | + +--------+ + + + | LEUKOCYTES | mod | Negative | [facility] | | | (UA DIP), | | | OF CARE | | | POC | | | TESTS | | + +--------+ + + + | NITRITES | neg | Negative | [facility] | | | (UA DIP), | | | OF CARE | | | POC | | | TESTS | | + +--------+ + + + | UROBILINOGE | norm | 0.2 CATHI | [facility] | | | N (UA DIP), | | UNITS | OF CARE | | | POC | | | TESTS | | + +--------+ + + + | PROTEIN (UA | 300 | Negative to | [facility] | | | DIP), POC | | Trace mg/dL | OF CARE | | | | | | TESTS | | + +--------+ + + + | PH (UA | 6.0 | 5 - 8 | [facility] | [...] +--------+ + + + | SPECIFIC | 1.025 | 1.005 - 1.03 | [facility] | [...] + + + + + | [facility] | [address] | [place], [place] | | | [facility] | [address] | [address] | | | TESTS | | | | + + + + + | [facility] | [address] | [place], [place] | | | TESTS | [address] | [address] | | + + + + + documented in this encounter Visit Diagnoses + + | Diagnosis | + + | Urolithiasis - Primary Urinary calculus, unspecified | + + documented in this encounter"
--- OUTSIDE RECORDS SUMMARY | ~2018-08-20 | XMS | Encounter Summary ---
Demographics + + + | [address] | [address] | | | [place] [address] | + + + | Home Phone | | + + + | Preferred Language | Unknown | + + + | Marital Status | | + + + | Amish Affiliation | PRO | + + + | Race | White | + + + | Ethnic Group | Not or | + + + Author + + + | Author | [facility] | + + + | Organization | [facility] | + + + | Address | Unknown | + + + | Phone | Unavailable | + + + Support + + + + + | Name | Relationship | Address | Phone | + + + + + | Hector Mack | ECON | [address] | | | | | [place] | | | | | [address] | | + + + + + Care Team Providers + +------+ + | Care Senior Product Consultant Name | Role | Phone | + +------+ + | Tuan Chan MD | PCP | | + +------+ + Encounter Details +--------+ + + + + | Date | Type | Department | Care Team | Description | +--------+ + + + + | 03/11/ | Hospital | Cardiac | [facility] | | | 2010 | Encounter | Non-Invasive Testing | [address] | | | | | at [facility] | [facility] | | | | | [address] | [place] [address] | | | | | [facility] | | | | | | Mailcode: [id number] | | | | | | [facility] | | | | | | [place], | | | | | | [place] [address] | | | | | | [phone] | | | +--------+ + + + [...] + + documented as of this encounter Medications at Time of Discharge + + + +---------+--------+ + | Medication | Sig | Dispensed | Refills | Start | End Date | | | | | | Date | | + + + +---------+--------+ + | ALBUTEROL 90 | inhale 1 puff by | | 0 | | | | MCG/ACTUATION | inhalation route | | | | | | AEROSOL INHALER | every 4-6 hours as | | | | | | | needed | | | | | + + + +---------+--------+ + | bumetanide 1 mg | 1 tab daily | | 0 | | | | Oral Tablet | | | | | | + + + +---------+--------+ + | buPROPion SR | 1 tablet daily | | 0 | | | | (WELLBUTRIN SR) 150 | | | | | | | mg Oral Tablet | | | | | | | Sustained Release | | | | | | + + + +---------+--------+ + | lisinopril 5 mg | take 1 tablet (5 mg) | | 0 | | | | Oral Tablet | by oral route once | | | | | | | daily | | | | | + + + +---------+--------+ + documented as of this encounter Plan of Treatment Not on filedocumented as of this encounter Procedures + +--------+ + + + | Procedure Name | Priori | Date/Time | Associated Diagnosis | Comments | | | ty | | | | + +--------+ + + + | 12 LEAD ECG | Routin | 03/11/2011 | Kidney stone | Results for this | | | e | 4:58 PM | | procedure are in the | | | | PST | | results section. | + +--------+ + + + documented in this encounter Results 12 LEAD ECG (03/11/2011 4:58 PM PST) + + + + + + | Component | Value | Ref Range | Performed | Pathologist | | | | | At | Signature | + + + + + + | VENTRICULAR | 62 | BPM | [facility] | | | RATE | | | OF | | | | | | CARDIOLOGY | | + + + + + + | ATRIAL RATE | 62 | BPM | [facility] | | | | | | OF | | | | | | CARDIOLOGY | | + + + + + + | P-R | 150 | ms | [facility] | | | INTERVAL | | | OF | | | | | | CARDIOLOGY | | + + + + + + | QRS | 82 | ms | [facility] | | | DURATION | | | OF | | | | | | CARDIOLOGY | | + + + + + + | QT | 464 | ms | [facility] | | | | | | OF | | | | | | CARDIOLOGY | | + + + + + + | QTC | 472 | ms | [facility] | | | | | | OF | | | | | | CARDIOLOGY | | + + + + + + | P AXIS | 25 | degrees | [facility] | | | | | | OF | | | | | | CARDIOLOGY | | + + + + + + | R AXIS | -2 | degrees | [facility] | | | | | | OF | | | | | | CARDIOLOGY | | + + + + + + | T AXIS | 87 | degrees | [facility] | | | | | | OF | | | | | | CARDIOLOGY | | + + + + + + | EKG | Normal sinus | | [facility] | | | DIAGNOSIS | rhythmNonspecific T wave | | OF | | | | abnormalityProlonged | | CARDIOLOGY | | | | QTAbnormal ECGConfirmed | | | | | | by STACEY NEWTON ([id number]) | | | | | | on 03/12/2011 8:00:29 | | | | | | AM | | | | + + + + + + + + | Specimen | + + | | + + + + + | Narrative | Performed At | + + + | Please click | [facility] | | on view image for the detailed interpretation from [employer] results. | CARDIOLOGY | + + + + + + + + | Performing | Address | City/State/Zipcode | Phone Number | | Organization | | | | + + + + + | [facility] | [address] | [place], [place] | | | CARDIOLOGY | [facility] | [address] | | + + + + + documented in this encounter Visit Diagnoses Not on filedocumented in this encounter"
--- OUTSIDE RECORDS SUMMARY | ~2018-08-20 | XMS | Encounter Summary ---
Demographics + + + | Address | [address] | | | [place] [address] | + + + | Home Phone | | + + + | Preferred Language | Unknown | + + + | Marital Status | | + + + | Hinduism Affiliation | PRO | + + + | Race | White | + + + | Ethnic Group | Not or | + + + Author + + + | Author | [facility] | + + + | Organization | [facility] | + + + | Address | Unknown | + + + | Phone | Unavailable | + + + Support + + + + + | Name | Relationship | Address | Phone | + + + + + | Hector Mack | ECON | [address] | | | | | [place] | | | | | [address] | | + + + + + Care Team Providers + +------+ + | Care Snow Fence Erector Name | Role | Phone | + +------+ + | Tuan Chan MD | PCP | | + +------+ + Encounter Details +--------+ + + + + | Date | Type | Department | Care Team | Description | +--------+ + + + + | 02/06/ | Documentati | Anesthesiology | Unknown . | | | 2005 | on | [address] | | | | | | [place] | | | | | | [place], [place] | | | | | | [address] | | | +--------+ + + + [...] | + +--------+ + + + | ANESTHESIA/SEDATION | | 02/06/2006 | | Results for this | | | | 11:10 AM | | procedure are in the | | | | PST | | results section. | + +--------+ + + + documented in this encounter Results ANESTHESIA/SEDATION (02/06/2006 11:10 AM PST) + + + | Narrative | Performed At | + + + | Ordered by an unspecified provider. | | + + + + + | Transcriptions | + + | 02/06/2006 11:10 AM [facility] Anesthesia PostOp Report | | | | Patient: GERMAINE CARIAS [facility] Rec: [id number] Sex F Bdate: 1945 | | Date/Time Data | | Entered Into [facility] | | Anesth PostOp | | Surgery Date [id number] 02/06/06 11:10 | | Anesthesiologist OLEG ASCENCIO 02/06/06 11:10 | | Resident Anesthesiolog JULIEN FRYE 02/06/06 11:10 | | | + + documented in this encounter Visit Diagnoses Not on filedocumented in this encounter"
--- OUTSIDE RECORDS SUMMARY | ~2018-08-20 | XMS | Encounter Summary ---
Demographics + + + | [address] | [address] | | | [place] [address] | + + + | Home Phone [...] + + + | Author | [facility] | + + + | Organization | [facility] | + + + | Address | Unknown | + + + | Phone | Unavailable | + + + Support + + + + + | Name | Relationship | Address | Phone | + + + + + | Hector Mack | ECON | [address] | | | | | [place] | | | | | [address] | | + + + + + Care Team Providers + +------+ + | Care Car Coupler Name | Role | Phone | + [...] | | | Mail Code: [id number] | [place], [place] | | | | | [facility] | [address] | | | | | and Healing, | [phone] | | | | | Floor [place], [place] | | | | | | [address] | | | | | | [phone] | | | +--------+---------+ + + + [...] Resident Division of Urology and Renal Transplantation [facility] oe Hdez - 10/19/2007 1:51 PM PDTI [...] Lab) | | | | | | [place] | | | | | | [facility] | | | | | | [address] | | | | [address] | | | | | | [place] | | | | | | , [place] [id number]: | | | | | | Test performed at | | | | | | [facility] | | | | | | [facility]. | | | | + + + + + + + + | Specimen | + + | Urine - Urine | + + + + + + + | Performing | Address | City/State/Zipcode | Phone Number | | Organization | | | | + + + + + | [facility] | [address] | [place] [address] | | | LAB-MICRO | | | [...] [facility] | [address] | [place], [place] | | | [facility] | [address] | [address] | | | TESTS | | | | + + + + + | [facility] | [address] | [place], [place] | | | TESTS | [address] | [address] | | + + + + + documented in this encounter Visit Diagnoses + + | Diagnosis | + + | Urolithiasis - Primary Urinary calculus, unspecified | + + documented in this encounter"
--- OUTSIDE RECORDS SUMMARY | ~2018-08-20 | XMS | Encounter Summary ---
Demographics + + + | Address | [address] | | | [place] [address] | + + + | Home Phone | | + + + | Preferred Language | Unknown | + + + | Marital Status | | + + + | Worship Affiliation | PRO | + + + | Race | White | + + + | Ethnic Group | Not or | + + + Author + + + | Author | [facility] | + + + | Organization | [facility] | + + + | Address | Unknown | + + + | Phone | Unavailable | + + + Support + + + + + | Name | Relationship | Address | Phone | + + + + + | Hector Mack | ECON | [address] | | | | | [place] | | | | | [address] | | + + + + + Care Team Providers + +------+ + | Care Pin Game Machine Inspector Name | Role | Phone | + +------+ + | Tuan Cahn MD | PCP | | + +------+ + Reason for Visit + + + | Reason | Comments | + + + | Pre-op evaluation | panniculectomy, b/l breast reduction | + + + | Pre-op evaluation | | + + + Encounter Details +--------+---------+ + + + | Date | Type | Department | Care Team | Description | +--------+---------+ + + + | 01/14/ | Office | Plastic and | Aysha Blackburn | Panniculitis | | 2007 | Visit | Reconstructive | MD Tristin | (Primary Dx); | | | | Surgery at [facility] [address] | | Intertrigo; CAD | | | | [address] | | (Coronary Artery | | | | Code: [facility] Center | | Disease); DM Circ | | | | for Health and | | Dis Type II, | | | | Healing, 5th Floor | | Uncontrolled (HCC) | | | | [place], [place] | | | | | | [address] | | | | | | [phone] | | | +--------+---------+ + + + [...] + + + | Blood Pressure | 190/80 | 01/15/2008 8:28 AM | | | | | PDT | | + + + + + | Pulse | 51 | 01/15/2008 8:28 AM | | | | | PDT | | + + + + + | Temperature | - | - | | + + + + + | Respiratory Rate | 20 | 01/15/2008 8:28 AM | | | | | PDT | | + + + + + | Oxygen Saturation | 98% | 01/15/2008 8:28 AM | | | | | PDT | | + + + + + | Inhaled Oxygen | - | - | | | Concentration | | | | + + + + + | Weight | 89.3 kg (196 lb 14.4 | 01/15/2008 8:28 AM | | | | oz) | PDT | | + + + + + | Height | 162.6 cm (5' 4") | 01/15/2008 8:28 AM | | | | | PDT | | + + + + + | Body Mass Index | 33.8 | 01/15/2008 8:28 AM | | | | | PDT | | + + + + + documented in this encounter Patient Instructions Patient Instructions Aysha Blackburn - 01/15/2008 9:11 AM PDTRegistration Locations (pl ease check in at one of the following registration desks prior to surgery) For surgeries scheduled to take place on the leslie at the [facility]: Surgeries scheduled in the [facility] (4 North): registration is located on the 4th floor of [facility] (Day Surgery). Surgeries scheduled in the [facility]: registration is located on the 9th floor. Surgeries scheduled in [facility]: registration is located on the 6th floor. Surgeries scheduled in the [facility]: registration is located i n the [facility] on the first floor. For surgeries scheduled to take place at the [facility]: registration is l ocated on the 4th floor (Surgery Center). Registration Process for all Admissions/Surgeries Please bring your insurance card(s) with you and be prepared to pay any co-payment, co-insu pierce or deposit that may be required. Once you arrive at the registration desk, you will be interviewed by a Patient Access Servi ce Specialist (BILL). Demographics will be verified (example: name, date of , Social Se curity Number, address, insurance). You will be asked to sign some paperwork: Terms and Conditions of Service, Notice of Privac y Practices Acknowledgement and Genetic Testing Opt Out. You will be given some paperwork: copies of any forms signed by you, Patient Rights, Respon sibilities and Safety, Understanding Advance Directives, and Smoking Cessation Brochure. documented in this encounter Progress Notes Aysha Blackburn - 01/15/2008 9:11 AM PDT Pre-Procedure History and Physical Date of Admission: 01/21/08 HISTORY: Ms. Heard is a 61 y/o F with panniculitis and chronic rashes under her дмитрий asts who has been seen previously by Dr. Amin for a panniculectomy and mastopexy. She had gastric bypass surgery several years ago and has significant excess skin after losing over 100 pounds. Her rashes have been refractory to medical treatment. CURRENT PROBLEM LIST: Patient Active Problem List Diagnoses Date Noted Panniculitis [729.30G] 01/15/2008 Achalasia [530.0N] 03/03/2006 Obesity [278.00L] 03/03/2006 Dysmetabolic Syndrome X [277.7] 11/21/2005 CAD (Coronary Artery Disease) [414.00AE] 11/21/2005 Sleep Apnea [780.57C] 11/21/2005 Gout [274.9H] 11/21/2005 DM Circ Dis Type II, Uncontrolled [250.72] 11/21/2005 Dyslipidemia [272.4CE] 11/21/2005 Past Medical History Diagnosis Date Unspecified Arthropathy, Site Unspecified Cor Athrscl-Uns Vessel stent 1.5 years ago. Other General Symptoms DM w/o Complication Type II Pure Hypercholesterolemia Symptomatic Menopausal or Female Climacteric States GERD (Gastroesophageal Reflux Disease) Sleep Apnea Past Surgical History Procedure Date Pr cabg, vein, four 7 years ago Hx appendectomy Hx cholecystectomy Hx tonsil and adenoidectomy Hx gastric bypass Appendectomy as a 5 y/o RLQ scar, open Open annika - 1968, RUQ scar ~ 20 cm long Gastric bypass - 02/03 - RYGB MEDICATIONS: Current outpatient prescriptions Medication Sig Dispense Refill ALBUTEROL 90 MCG/ACTUATION AEROSOL INHALER inhale 1 puff by inhalation route every 4-6 hours as needed bumetanide 1 mg Oral Tablet 1 tab bid buPROPion SR (WELLBUTRIN SR) 150 mg Oral Tablet Sustained Release 1 tablet as needed clopidogrel (PLAVIX) 75 mg Oral Tablet take 1 tablet (75 mg) by oral route once daily hydrocodone-acetaminophen (NORCO) 10-325 mg Oral Tablet take [...] Entered MULTIVITAMIN OR Take 1 tablet daily. POTASSIUM OR Take 2 tablets daily. TOPROL XL OR None Entered Allergies Allergen Reactions Codeine Hives and Rash FAMILY HISTORY: Family History Problem Relation Heart Mother Diabetes Mother Heart Brother CHF REVIEW OF SYSTEMS: no f/c/n/v/CP/SOB/cough PHYSICAL EXAM: VITALS: Visit Vitals Item Reading BP 190/80 Pulse 51 Resp 20 Ht 1.626 m (5' 4") Wt 89.313 kg (196 lb 14.4 oz) SpO2 98% CHEST/LUNGS: Lungs CTAB, breast exam normal, no masses, no discharge, no axillary adenopath y, see previous exam by Dr. Amin for breast measurements, Midline sternotomy scar well hea led HEART: RRR ABDOMEN: No hernias appreciated, scars in RUQ, RLQ, laparoscopics ports in L&RUQ's, signifi cant excess skin with pannus hanging down ~ 10 cm, rash evident in intertriginous areas. ~ 3 cm hernia just below xyphoid, reducible, non-tender PROVISIONAL DIAGNOSIS: Panniculitis and rashes under breasts refractory to medical treatmen t PLANNED COURSE OF ACTION: Mastopexy and panniculectomy PARQ: A PARQ session was held. 9:3 2 AM PDTdocumented in this encounter Plan of Treatment + +---------+--------+ + + | Name | Type | Priori | Associated Diagnoses | Order Schedule | | | | ty | | | + +---------+--------+ + + | X-RAY CHEST 2 VIEW | Imaging | Routin | Panniculitis | Ordered: 01/15/2008 | | | | e | | | + +---------+--------+ + + | 12 LEAD ECG | ECG | Routin | Panniculitis | Ordered: 01/15/2008 | | | | e | | | + +---------+--------+ + + | TYPE AND SCREEN | Lab | Routin | CAD (Coronary | Expected: 01/15/2008 | | | | e | Artery Disease) | | + +---------+--------+ + + documented as of this encounter Procedures + +--------+ + + + | Procedure Name | Priori | Date/Time | Associated Diagnosis | Comments | | | ty | | | | + +--------+ + + + | MA DIGITAL MAMMO | Routin | 01/15/2008 | Intertrigo | Results for this | | SCREEN BILAT | e | 1:50 PM | | procedure are in the | | | | PDT | | results section. | + +--------+ + + + documented in this encounter Results MA DIG MAMMO SCREEN BILAT (01/15/2008 1:50 PM PDT) + + + + + + | Component | Value | Ref Range | Performed | Pathologist | | | | | At | Signature | + + + + + + | DIG MAMMO | Patient History:Patient | | | | | SCREEN | is postmenopausal.First | | | | | BILAT | mammogram.Reason for | | | | | | exam: screening.MAMMO | | | | | | SCREENING BILAT W CAD: | | | | | | January 15, 2008 - | | | | | | Accession | | | | | | #:[id number] | | | | | | and MLO view(s) were | | | | | | taken.The breast tissue | | | | | | is almost entirely fat | | | | | | . No | | | | | | significantmasses, | | | | | | densities or | | | | | | calcifications to | | | | | | suggest malignancy. | | | | | | Noprior studies are | | | | | | available for | | | | | | comparison.The images | | | | | | were obtained using full | | | | | | field digital | | | | | | mammography onthe | | | | | | dedicated [employer] System | | | | | | with R2 CAD. Performed | | | | | | at [facility] and | | | | | | Science | | | | | | [place].ASSESSMENT: | | | | | | Negative - Category | | | | | | 1RECOMMENDATION:Routine | | | | | | screening mammogram of | | | | | | both breasts in 1 year.I | | | | | | have personally viewed | | | | | | this procedure/exam and | | | | | | reviewed this | | | | | | report.STATUS FINAL / | | | | | | Dr. CHANELLE Waller | | | | + + + + + + + + | Specimen | + + | | + + + +---------+ + + | Performing | Address | City/State/Zipcode | Phone Number | | Organization | | | | + +---------+ + + | [facility] | | | | | RADIOLOGY | | | | + +---------+ + + RYAN WHITAKER ONLY (01/15/2008 10:51 AM PDT) + + + + + + | Component | Value | Ref Range | Performed | Pathologist | | | | | At | Signature | + + + + + + | COLOR(UR) | Yellow | | [facility] | | | | | | DEPARTMENT | | | | | | OF | | | | | | PATHOLOGY | | + + + + + + | APPEARANCE | Clear | | [facility] | | | | | | DEPARTMENT | | | | | | OF | | | | | | PATHOLOGY | | + + + + + + | GLUCOSE(UR) | Negative | mg/dL | [facility] | | | | | | DEPARTMENT | | | | | | OF | | | | | | PATHOLOGY | | + + + + + + | BILIRUBIN | Negative | | [facility] | | | | | | DEPARTMENT | | | | | | OF | | | | | | PATHOLOGY | | + + + + + + | KETONES | Negative | mg/dL | [facility] | | | | | | DEPARTMENT | | | | | | OF | | | | | | PATHOLOGY | | + + + + + + | SPECIFIC | 1.020 | 1.005 - 1.030 | [facility] | | | GRAVITY | | | DEPARTMENT | | | | | | OF | | | | | | PATHOLOGY | | + + + + + + | BLOOD | Negative | | [facility] | | | | | | DEPARTMENT | | | | | | OF | | | | | | PATHOLOGY | | + + + + + + | PH(UR) | 6.0 | 5.0 - 8.0 | [facility] | | | | | | DEPARTMENT | | | | | | OF | | | | | | PATHOLOGY | | + + + + + + | PROTEIN(LAB | Negative | mg/dL | [facility] | | | ) | | | DEPARTMENT | | | | | | OF | | | | | | PATHOLOGY | | + + + + + + | UROBILINOGE | 0.2 | 0 - 0.2 CATHI | [facility] | | | N | | UNITS | DEPARTMENT | | | | | | OF | | | | | | PATHOLOGY | | + + + + + + | NITRITES | Negative | Negative | [facility] | | | | | | DEPARTMENT | | | | | | OF | | | | | | PATHOLOGY | | + + + + + + | LEUKOCYTE | Trace | Negative | [facility] | | | ESTERASE | | | DEPARTMENT | | | [...] | + + + + + | [facility] | [address] | [place] [address] | | | PATHOLOGY | [address] | | | + + + + + | [facility] | [address] | [place] [address] | | | PATHOLOGY | [address] | | | + + + + + APTT (ACT. PART. THROMBO TIME) (01/15/2008 10:50 AM PDT) + + + + + + | Component | Value | Ref Range | Performed | Pathologist | | | | | At | Signature | + + + + + + | APTT | 29.0Comment: | 26.0 - 36.0 | [facility] | | | | APTT | seconds | DEPARTMENT | | | | Therapeutic | | OF | | | | Range | | PATHOLOGY | | | | | | | | | | (75-120) | | | | | | sec | | | | | | Heparin levels of | | | | | | 0.35-0.7 U/mL | | | | + + + + + + + + | Specimen | + + | Blood - Blood | + + + + + + + | Performing | Address | City/State/Zipcode | Phone Number | | Organization | | | | + + + + + | [facility] DEPARTMENT OF | [address] | [place] [address] | | | PATHOLOGY | [address] | | | + + + + + | [facility] | [address] | [place] [address] | | | PATHOLOGY | [address] | | | + + + + + INR (01/15/2008 10:50 AM PDT) + + + + + + | Component | Value | Ref Range | Performed | Pathologist | | | | | At | Signature | + + + + + + | INR | 1.09Comment: | 0.90 - 1.20 INR | [facility] | | | | INR | | DEPARTMENT | | | | Therapeutic ranges for | | OF | | | | full | | PATHOLOGY | | | | anticoagulation: | | | | | | INR for Venous | | | | | | Thromboembolism | | | | | | | | | | | | (2.0-3.0) | | | | | | INR INR for | | | | | | most patients with mech. | | | | | | | | | | | | valves (2.5-3.5) | | | | | | INR | | | | + + + + + + + + | Specimen | + + | Blood - Blood | + + + + + + + | Performing | Address | City/State/Zipcode | Phone Number | | Organization | | | | + + + + + | [facility] | [address] | [place] [address] | | | PATHOLOGY | [address] | | | + + + + + | [facility] | [address] | [place] [address] | | | PATHOLOGY | [address] | | | + + + + + COMPLETE METABOLIC SET (NA,K,CL,CO2,BUN,CREAT,GLUC,CA,AST,ALT,BILI TOTAL,ALK PHOS,ALB,PROT TOTAL) (01/15/2008 10:50 AM PDT) + +---------+ + + + | Component | Value | Ref Range | Performed | Pathologist | | | | | At | Signature | + +---------+ + + + | GLUCOSE, | 94 | 60 - 99 mg/dL | [facility] [...] +---------+ + + + | CREATININE | 0.71 | 0.60 - 1.10 | [facility] | | | PLASMA | | mg/dL | DEPARTMENT | | | (LAB) | | | OF | | | | | | PATHOLOGY | | + +---------+ + + + | TOTAL | 6.5 | 6.1 - 7.9 g/dL | [facility] | | | PROTEIN, | | | DEPARTMENT | | | PLASMA | | | OF | | | (LAB) | | | PATHOLOGY | | + +---------+ + + + | ALBUMIN, | 3.6 | 3.5 - 4.7 g/dL | [facility] | | | PLASMA | | | DEPARTMENT | | | (LAB) | | | OF | | | | | | PATHOLOGY | | + +---------+ + + + | CALCIUM, | 8.4 (L) | 8.6 - 10.2 | [facility] | | | PLASMA | | mg/dL | DEPARTMENT | | | (LAB) | | | OF | | | | | | PATHOLOGY | | + +---------+ + + + | BILIRUBIN | 0.7 | 0.3 - 1.2 mg/dL | [facility] | | | TOTAL | | | DEPARTMENT | | | | | | OF | | | | | | PATHOLOGY | | + +---------+ + + + | ALK PHOS | 58 | 53 - 141 U/L | [facility] | | | | | | DEPARTMENT | | | | | | OF | | | | | | PATHOLOGY | | + +---------+ + + + | AST(SGOT) | 17 | 15 - 41 U/L | [facility] | | | | | | DEPARTMENT | | | | | | OF | | | | | | PATHOLOGY | | + +---------+ + + + | SODIUM, | 144 (H) | 134 - 143 | [facility] | | | PLASMA | | mmol/L | DEPARTMENT | | | (LAB) | | | OF | | | | | | PATHOLOGY | | + +---------+ + + + | POTASSIUM, | 3.5 | 3.4 - 5.0 | [facility] | | | PLASMA | | mmol/L | DEPARTMENT | | | (LAB) | | | OF | | | | | | PATHOLOGY | | + +---------+ + + + | CHLORIDE, | 108 | 97 - 108 mmol/L | [facility] | | | PLASMA | | | DEPARTMENT | | | (LAB) | | | OF | | | | | | PATHOLOGY | | + +---------+ + + + | TOTAL CO2, | 28 | 23 - 31 mmol/L | [facility] | | | PLASMA | | | DEPARTMENT | | | (LAB) | | | OF | | | | | | PATHOLOGY | | + +---------+ + + + | ALT (SGPT) | 13 | 13 - 48 U/L | [facility] | | | | | | DEPARTMENT | | | | | | OF | | | | | | PATHOLOGY | | + +---------+ + + + + + | Specimen | + + | Blood - Blood | + + + + + | Narrative | Performed At | + + + | [id number] Estimated GFR > 60 mL/min/1.73 sq m if non- | [facility] | | [place] [id number] Estimated GFR > 60 mL/min/1.73 sq m if | DEPARTMENT OF | | [place] GFR is estimated using the MDRD equation recommended by | PATHOLOGY | | the National Kidney Disease Education Program. Estimated GFR | | | Interpretive Information: <60 mL/min/1.73 sq m Chronic | | | Kidney Disease <15 mL/mon/1.73 sq m Kidney Failure | | | Estimated GFR greater than 60mL/min/1.73 is of limited clinical | | | Value. The MDRD equation is not valid in the following situations: | | | - Patients under 18 years of age - Severe malnutrition or obesity | | | - Vegetarian diet - Rapidly changing kidney function New | | | Creatinine Reference ranges effective 07. | | + + + + + + + + | Performing | Address | City/[facility] | Phone Number | | Organization | | | | + + + + + | [facility] | [address] [place] [address] | [place] [address] | | | PATHOLOGY | [address] | | | + + + + + | [facility] | [address] [place] [address] | [place] [address] | | | PATHOLOGY | [address] | | | + + + + + CBC ONLY (01/15/2008 10:50 AM PDT) + +-------+ + + + | Component | Value | Ref Range | Performed | Pathologist | | | | | At | Signature | + +-------+ + + + | WHITE CELL | 6.2 | 4.4 - 11.0 K/cu | [facility] | | | COUNT | | mm | DEPARTMENT | | | | | | OF | | | | | | PATHOLOGY | | + +-------+ + + + | RED CELL | 4.01 | 4.00 - 5.20 | [facility] | | | COUNT | | M/cu mm | DEPARTMENT | | | | | | OF | | | | | | PATHOLOGY | | + +-------+ + + + | HEMOGLOBIN | 12.0 | 12.0 - 16.0 | [facility] | | | | | g/dL | DEPARTMENT | | | | | | OF | | | | | | PATHOLOGY | | + +-------+ + + + | HEMATOCRIT | 36.0 | 36.0 - 46.0 % | [facility] | | | | | | DEPARTMENT | | | | | | OF | | | | | | PATHOLOGY | | + +-------+ + + + | MCV | 89.9 | 80.0 - 96.0 fL | [facility] | | | | | | DEPARTMENT | | | | | | OF | | | | | | PATHOLOGY | | + +-------+ + + + | MCHC | 33.4 | 33.4 - 35.5 | [facility] | | | | | g/dL | DEPARTMENT | | | | | | OF | | | | | | PATHOLOGY | | + +-------+ + + + | RDW | 14.2 | 11.5 - 15.0 % | [facility] | | | | | | DEPARTMENT | | | | | | OF | | | | | | PATHOLOGY | | + +-------+ + + + | PLATELET | 208 | 150 - 400 K/cu | [facility] | | | COUNT | | mm | DEPARTMENT | | | | | | OF | | | | | | PATHOLOGY | | + +-------+ + + + + + | Specimen | + + | Blood - Blood | + + + + + + + | Performing | Address | City/State/Zipcode | Phone Number | | Organization | | | | + + + + + | [facility] DEPARTMENT OF | [address] | [place] [address] | | | PATHOLOGY | [address] | | | + + + + + | [facility] | [address] | [place] [address] | | | PATHOLOGY | [address] | | | + + + + + documented in this encounter Visit Diagnoses + + | Diagnosis | + + | Panniculitis - Primary Panniculitis, unspecified site | + + | Intertrigo Other specified erythematous condition | + + | CAD (coronary artery disease) Coronary atherosclerosis of unspecified type of vessel, | | ho-chunk or graft | + + | Type II or unspecified type diabetes mellitus with peripheral circulatory disorders, | | uncontrolled(250.72) Type II or unspecified type diabetes mellitus with peripheral | | circulatory disorders, uncontrolled | + + documented in this encounter
--- OUTSIDE RECORDS SUMMARY | ~2018-08-20 | XMS | Encounter Summary ---
Demographics + + + | Address | [address] | | | [place] [address] | + + + | Home Phone | | + + + | Preferred Language | Unknown | + + + | Marital Status | | + + + | Druze Affiliation | PRO | + + + | Race | White | + + + | Ethnic Group | Not or | + + + Author + + + | Author | [facility] | + + + | Organization | [facility] | + + + | Address | Unknown | + + + | Phone | Unavailable | + + + Support + + + + + | Name | Relationship | Address | Phone | + + + + + | Hector Mack | ECON | [address] | | | | | [place] | | | | | [address] | | + + + + + Care Team Providers + +------+ + | Care Embossed Or Impressed Lettering Painter Name | Role | Phone | + +------+ + | Tuan Chan MD | PCP | | + +------+ + Encounter Details +--------+ + + + + | Date | Type | Department | Care Team | Description | +--------+ + + + + | 02/04/ | Ancillary | Registration [id number] | Kassandra Frazier | | | 2005 | Registratio | [place] | [phone] | | | | n | [facility] Mailcode: | | | | | | [address] [place], [place] | | | | | | [address] | | | | | | [phone] | | | +--------+ + + + [...]
--- OUTSIDE RECORDS SUMMARY | ~2018-08-20 | XMS | Encounter Summary ---
Demographics + + + | Address | [address] | | | [place] [address] | + + + | Home Phone [...] [place] | | | | | [address] | | + + + + + Care Team Providers + +------+ + | Care Special Effects Artist Name | Role | Phone | + +------+ + | Tuan Chan MD | PCP | | + +------+ + Encounter Details +--------+ + + + + | Date | Type | Department | Care Team | Description | +--------+ + + + + | 02/05/ | Respiratory | | Other, Faculty | | | 2005 | Therapy | | [phone] | | +--------+ + + + + [...] HOME BIPAP AND CPAP | Routin | 02/05/2006 | | Results for this | | | e | 9:15 PM | | procedure are in the | | | | PST | | results section. | + +--------+ + + + documented in this encounter Results HOME BIPAP AND CPAP (02/05/2006 9:15 PM PST) + + + + + + | Component | Value | Ref Range | Performed | Pathologist | | | | | At | Signature | + + + + + + | RESPIRATORY | Pt's multi operation forming machine setter and | | | | | CARE | checked but pt did not | | | | | | want to wear at this | | | | | | time. PATIENT'S HOME | | | | | | CPAP SET UP. PER HOME | | | | | | REGIMEN THE DEVICE IS | | | | | | SET AT THEFOLLOWIN = | | | | | | CPAP HR= 86 | | | | | | RR= 16 BREATH SOUNDS | | | | | | = DIMINISHED . SPO2= | | | | | | [address] Sirisha Vigil RCP | | | | [...] [facility] | [address] | [place], [place] | | | DIAGNOSTICS - | [address] | [address] | | | PULMONARY FUNCTION | | | | + + + + + documented in this encounter Visit Diagnoses Not on filedocumented in this encounter"
--- OUTSIDE RECORDS SUMMARY | ~2018-08-20 | XMS | Encounter Summary ---
Demographics + + + | [address] | [address] | | | [place] [address] | + + + | Home Phone | | + + + | Preferred Language | Unknown | + + + | Marital Status | | + + + | Jainism Affiliation | PRO | + + + | Race | White | + + + | Ethnic Group | Not or | + + + Author + + + | Author | [facility] | + + + | Organization | [facility] | + + + | Address | Unknown | + + + | Phone | Unavailable | + + + Support + + + + + | Name | Relationship | Address | Phone | + + + + + | Hector Mack | ECON | [address] | | | | | [place] | | | | | [address] | | + + + + + Care Team Providers + +------+ + | Care Varnish Remover Name | Role | Phone | + +------+ + | Tuan Chan MD | PCP | | + +------+ + Encounter Details +--------+---------+ + + + | Date | Type | Department | Care Team | Description | +--------+---------+ + + + | 12/15/ | Office | Plastic and | Aysha Blackburn | Obesity (Primary Dx) | | 2007 | Visit | Karmen Crow MD | | | | | Surgery at [facility] [address] | | | | | | [place] Mail | | | | | | Code: [facility] | | | | | | for Health and | | | | | | [facility], [address] [facility] | | | | | | [place], [place] | | | | | | [address] | | | | | | [phone] | | | +--------+---------+ + + + [...]
--- OUTSIDE RECORDS SUMMARY | ~2018-08-20 | XMS | Encounter Summary ---
Demographics + + + | Address | [address] | | | [place] [address] | + + + | Home Phone | | + + + | Preferred Language | Unknown | + + + | Marital Status | | + + + | Catholic Affiliation | PRO | + + + | Race | White | + + + | Ethnic Group | Not or | + + + Author + + + | Author | [facility] | + + + | Organization | [facility] | + + + | Address | Unknown | + + + | Phone | Unavailable | + + + Support + + + + + | Name | Relationship | Address | Phone | + + + + + | Hector Mack | ECON | [address] | | | | | [place] | | | | | [address] | | + + + + + Care Team Providers + +------+ + | Care [place] Guide Name | Role | Phone | + +------+ + | Tuan Chan MD | PCP | | + +------+ + Reason for Visit + + + | Reason | Comments | + + + | Postoperative | Patients has some concerns, pain issues | | Questions | | + + + Encounter Details +--------+ + + + + | Date | Type | Department | Care Team | Description | +--------+ + + + + | 05/20/ | Telephone | Plastic and | Aysha Blackburn | Postoperative | | 2008 | | Reconstructive | MD Tristin | Questions (Patients | | | | Surgery at [facility] [address] | | has some | | | | [address] | | concerns, pain | | | | Code: [facility] | | issues) | | | | for Health and | | | | | | Healing, 5th Floor | | | | | | [place], [place] | | | | | | [address] | | | | | | [phone] | | | +--------+ + + + [...]
--- OUTSIDE RECORDS SUMMARY | ~2018-08-20 | XMS | Encounter Summary ---
Demographics + + + | Address | [address] | | | [place] [address] | + + + | Home Phone | | + + + | Preferred Language | Unknown | + + + | Marital Status | | + + + | Nondenominational Affiliation | PRO | + + + | Race | White | + + + | Ethnic Group | Not or | + + + Author + + + | Author | [facility] | + + + | Organization | [facility] | + + + | Address | Unknown | + + + | Phone | Unavailable | + + + Support + + + + + | Name | Relationship | Address | Phone | + + + + + | Hector Mack | ECON | [address] | | | | | [place] | | | | | [address] | | + + + + + Care Team Providers + +------+ + | Care Manager Ship Name | Role | Phone | + +------+ + | Tuan Chan MD | PCP | | + +------+ + Reason for Visit + + + | Reason | Comments | + + + | History and physical | | | examination | | + + + Encounter Details +--------+---------+ + + + | Date | Type | Department | Care Team | Description | +--------+---------+ + + + | 01/20/ | Office | General Surgery | Herberth Ayala, | Achalasia; | | 2005 | Visit | Bariatric [address] | MD | Morbid Obesity (HCC) | | | | Isaiah [address] | | | | | | Road Mailcode: | | | | | | [id number] | | | | | | [address] | | | | | | [place], [place] | | | | | | [address] | | | | | | [phone] | | | +--------+---------+ + + + [...] + + + | Blood Pressure | 130/70 | 01/20/2006 9:57 AM | | | | | PDT | | + + + + + | Pulse | 76 | 01/20/2006 9:57 AM | | | | | PDT | | + + + + + | Temperature | - | - | | + + + + + | Respiratory Rate | 20 | 01/20/2006 9:57 AM | | | | | PDT | | + + + + + | Oxygen Saturation | - | - | | + + + + + | Inhaled Oxygen | - | - | | | Concentration | | | | + + + + + | Weight | 138.8 kg (306 lb) | 01/20/2006 9:57 AM | | | | | PDT | | + + + + + | Height | 162.6 cm (5' 4") | 01/20/2006 9:57 AM | | | | | PDT | | + + + + + | Body Mass Index | 52.52 | 01/20/2006 9:57 AM | | | | | PDT | | + + + + + documented in this encounter Progress Notes Fee Elizabeth, Scarlett Fortune - 01/22/2006 5:56 PM PDTFormatting of this note might be different from yosvany hernández. 01/22/2006 BARIATRIC PRE-OP SURGEON NOTE Germaine Sorensenjose mMack here for discussion of surgical weight loss procedure. Scheduled for [facility] on 02/05/06 Last 1 Wt Readings: Date: Wt: 01/20/2006 306 lbs (138.801 kg) Body Mass Index is 52.50 kg/(m^2). See previous History and Physical notes from Dr. Johnson and Nora. Date of Admission: 02/05/06 History: Ms. Heard has a hx. of morbid obesity as well as a hx. of achalasia. She is referred to us by Dr. Papi Johnson for evaluation for gastric bypass to be performed with heller myotomy by Dr. Johnson. She has previously failed all attempts at sustained dietary w eight loss. Comorbidities include diabetes, hypertension, hyperlipidemia, and CAD with hx. CABG x4 vessels in 1999. She has been cleared for surgery by her straddle buggy operator, Dr. Melendez. She states she has completed dietary consultation and psychological evaluation in [facility]. Those records have been requested. Current Problem List: Patient Active Problem List: DYSMETABOLIC SYNDROME X[277.7] Date Noted: 11/21/2005 CAD (CORONARY ARTERY DISEASE)[414.00AE] Date Noted: 11/21/2005 SLEEP APNEA[780.57C] Date Noted: 11/21/2005 GOUT[274.9H] Date Noted: 11/21/2005 DM CIRC DIS TYPE II, UNCONTROLLED[250.72] Date Noted: 11/21/2005 DYSLIPIDEMIA[272.4CE] Date Noted: 11/21/2005 Past Medical History: UNSPECIFIED ARTHROPATHY, SITE UNSPECIFIED COR ATHRSCL-UNS VESSEL Comment: stent 1.5 years ago. OTHER GENERAL SYMPTOMS DM W/O COMPLICATION TYPE II PURE HYPERCHOLESTEROLEMIA SYMPTOMATIC MENOPAUSAL OR FEMALE CLIMACTERIC STATES GERD (GASTROESOPHAGEAL REFLUX DISEASE) SLEEP APNEA Past Surgical History: PA CABG, VEIN, FOUR HX APPENDECTOMY HX CHOLECYSTECTOMY HX TONSIL AND ADENOIDECTOMY MEDICATIONS: Current outpatient prescriptions: CELEBREX 200 MG CAP take 1 capsule (200mg) by oral route 2 times per day as needed Disp: R fl: LOVASTATIN 20 MG TAB take 1 tablet (20mg) by oral route once daily with evening meal Disp: Rfl: GLIPIZIDE 5 MG TAB take 1 tablet (5mg) by oral route 2 times per day before meals Disp: Rf l: KLOR-CON 10 10 MEQ TAB take 2 tablets (20meq) by oral route 2 times per day with food Disp: Rfl: TOPROL XL OR None Entered Disp: Rfl: PLAVIX 75 MG TAB take 1 tablet (75mg) by oral route once daily Disp: Rfl: LISINOPRIL 5 MG TAB take 1 tablet (5mg) by oral route once daily Disp: Rfl: BUMETANIDE 1 MG TAB 1 tab BID Disp: Rfl: RANITIDINE 150 MG CAP take 1 capsule (150mg) by oral route 2 times per day Disp: Rfl: NITROQUICK 0.[address] 1 tablet (0.4 mg) by sublingual route at the first s ign of an attack; may repeat every 5 minutes, until relief; if pain persists after a total o f 3 tablets in 15 minutes, prompt medical attention is recommended Disp: Rfl: ALBUTEROL 90 MCG/ACTUATION AEROSOL INHALER inhale 1 puff by inhalation route every 4-6 hour s as needed Disp: Rfl: HYDROCODONE-ACETAMINOPHEN 10 MG-325 MG TAB take 1 tablet by oral route every 4-6 hours as n eeded for pain Disp: Rfl: MORPHINE OR None Entered Disp: Rfl: SOMA 350 MG TAB take 1 tablet (350mg) by oral route 3 times per day and at bedtime Disp: R fl: Allergies: Codeine FAMILY HISTORY: Family History: Heart Mother Comment: Diabetes Mother Heart Brother Comment: CHF REVIEW OF SYSTEMS: General: No constitutional symptoms of fatigue, weakness, weight loss or gain, fevers, nig ht sweats. Ears/Nose/Throat: Hx. dysphagia. No sore throat, dental pain, hoarseness, oral or tongue l esions. Respiratory: No shortness of breath, cough, chest pain, dyspnea, wheezing or hemoptysis. N o nocturnal snoring, daytime drowsiness or morning headaches. Cardiovascular: Hx. CAD and CABG. Denies current symptoms of exertional chest pain, dyspn ea, palpitations, syncope, orthopnea, edema or paroxysmal nocturnal dyspnea. Gastrointestina l: Hx. GERD, gallstones, and cholecystectomy. Hx. appendectomy and unbilical herniorraphy. No complaints of abdominal or flank pain, anorexia, nausea or vomiting, dysphagia, change i n bowel habits or black or bloody stools or weight loss. Neurologic: The patient denies any symptoms of neurological impairment or TIAs; no amauros is, diplopia, dysphasia, or unilateral disturbance of motor or sensory function. No loss of balance or vertigo. No persistent headaches, numbness or paresthesias. VITALS: BP 130/70 | Pulse 76 | Resp 20 | Ht 5' 4" (1.63m) | Wt 306 lbs (138.8kg) PHYSICAL EXAM: General: healthy, alert and cooperative HEENT: Oropharynx clear without lesion or exudate Neck: Neck supple. No adenopathy. Thyroid symmetric & normal size. no jugular venous disten tion Cardiac: Rate, rhythm, regular, no murmur, gallop or bruits. Mild peripheral edema. Abdomen: obese Respiratory: Percussion normal. Good diaphragmatic excursion. Lungs clear to auscultation b ilaterally Skin: No evidence of pannus infection. Psych: No problems noted. Provisional Diagnosis: Achalasia, Morbid Obesity Planned Course of Action: Heller myotomy, Gastric bypass PARQ A PARQ session was held by Dr. Herberth Ayala--please see his separate note. Plan: PAT clinic today. Admit 02/05/06 for combined Heller myotomy and gastric bypass with Dr. Papi Johnson and Dr. Herberth Ayala. established 60 min Herberth Carrillo - 2005 12:36 PM PDTMs Jenni Mack presents for a WELSH for combined GBP and Heller myotomy for achalasia. She is an unusual pt who presents with both achalasia and morbid obesity. Dr Ole gil has seen her and will perform the myotomy. I will follow with a GBP. I explained to Ms Lan Alanis and her friend the unique nature of her case, and discussed the issue of myotomy, with att endant risks of leak and recurrent dysphagia. A full PARQ was held for GBP as well. The serg ent was informed of alternatives to gastric bypass, including gastric banding and duodenal s witch, and the common risks associated with gastric bypass, including the risk of , johan stomotic leak, DVT or pulmonary embolus, bleeding, infection, anastomotic stenosis, perforat ion or injury of the stomach or other organs hernia (internal and ventral), alopecia, and nu tritional problems which may or may not be refractory to vitamin supplementation, including but not limited to anemia, skin disorders, and nesidioblastosis. The fact that other, less c ommon complications may occur was also discussed. In addition, the risk of poor or no weight loss was discussed. The patient s expected weight loss of approximately 50-60% of excess body weight was calculated for this patient s height and current weight, along with the fa ct that there is a wide range of weight loss results after gastric bypass. The risk of conve rsion to an open procedure was discussed. The patient appeared to understand, was given an o pportunity to ask questions, and agrees to proceed. Dustin Man - 01/20/2006 10:07 AM PDTPatient given hibacl ens. Dustin CMA docume nted in this encounter Plan of Treatment Not on filedocumented as of this encounter Visit Diagnoses + + | Diagnosis | + + | Achalasia Achalasia and cardiospasm | + + | Morbid obesity (HCC) Morbid obesity | + + documented in this encounter
--- OUTSIDE RECORDS SUMMARY | ~2018-08-20 | XMS | Encounter Summary ---
Demographics + + + | Address | [address] | | | [place] [address] | + + + | Home Phone [...] + + + | Author | [facility] | + + + | Organization | [facility] | + + + | Address | Unknown | + + + | Phone | Unavailable | + + + Support + + + + + | Name | Relationship | Address | Phone | + + + + + | Hector Mack | ECON | [address] | | | | | [place] | | | | | [address] | | + + + + + Care Team Providers + +------+ + | Care Dual Hose Cementer Name | Role | Phone | + +------+ + | Tuan Chan MD | PCP | | + +------+ + Reason for Visit + + + | Reason | Comments | + + + | Post-discharge | op:05/10/08 panniculectomy | | follow-up | | + + + Encounter Details +--------+---------+ + + + | Date | Type | Department | Care Team | Description | +--------+---------+ + + + | 06/08/ | Office | Plastic and | Aysha Blackburn | Panniculitis | | 2008 | Visit | Reconstructive Andre Crow MD | (Primary Dx) | | | | Surgery at [facility] [address] | | | | | | [place] Mail | | | | | | Code: [address] | | | | | | for Health and | | | | | | [address] | | | | | | [place], [place] | | | | | | [address] | | | | | | [phone] | | | +--------+---------+ + + + [...] encounter Progress Notes Aysha Blackburn MD - 06/27/2008 1:07 PM PDTAddendum to sign. Claudia De La Cruz MD - 06/08/2008 10:23 AM PDTSubtamir ctive: Germaine ArteagaDennisFrederick presents 1 months status post panniculectomy with Aysha Blackburn MD. Current concerns include: continued rash along medial thighs and lower abdomen Drain output: no drains Objective: Incisions healing well Faint papular rash cephalad to incision and along bilateral medial thighs. No palpable fluid collection Rash also inframammary Residual ptosis of mons. Assessment: Doing well status post panniculectomy. However, she continues to have excess tissue that madrigal ngs over skin folds Plan: Nystatin topical cream to these areas. Pt will follow up in 3 months with Aysha Blackburn MD, sooner prn. Recommend follow up with dermatology regarding lesion on her back. She is interested in pannus excision for residual areas causing candidiasis. We discussed that this wound have to be performed after she is completely healed from her present surgery . Saw and examined patient with Dr. Penn and agree with above assessment and plan. Will preop for mons lift at next visit urphy, Aysha Crow MD - 06/08/2008 9:40 AM PDT documented in this encounter Plan of Treatment Not on filedocumented as of this encounter Visit Diagnoses + + | Diagnosis | + + | Panniculitis - Primary Panniculitis, unspecified site | + + documented in this encounter"
--- OUTSIDE RECORDS SUMMARY | ~2018-08-20 | XMS | Encounter Summary ---
Demographics + + + | Address | [address] | | | [place] [address] | + + + | Home Phone | | + + + | Preferred Language | Unknown | + + + | Marital Status | | + + + | Church Affiliation | PRO | + + + | Race | White | + + + | Ethnic Group | Not or | + + + Author + + + | Author | [facility] | + + + | Organization | [facility] | + + + | Address | Unknown | + + + | Phone | Unavailable | + + + Support + + + + + | Name | Relationship | Address | Phone | + + + + + | Hector Mack | ECON | [address] | | | | | [place] | | | | | [address] | | + + + + + Care Team Providers + +------+ + | Care Training Consultant Name | Role | Phone | + +------+ + | Tuan Chan MD | PCP | | + +------+ + Encounter Details +--------+ + + + + | Date | Type | Department | Care Team | Description | +--------+ + + + + | 06/17/ | Hospital | Registration [id number] | Noe Hdez, | | | 2007 | Activity | [address] | [address] | | | | | [facility] Mailcode: | [place], [place] | | | | | [address] [place], [place] | [address] | | | | | [address] | [phone] | | | | | [phone] | | | +--------+ + + + [...]
--- OUTSIDE RECORDS SUMMARY | ~2018-08-20 | XMS | Encounter Summary ---
Demographics + + + | Address | [address] | | | [place] [address] | + + + | Home Phone | | + + + | Preferred Language | Unknown | + + + | Marital Status | | + + + | Mormonism Affiliation | PRO | + + + | Race | White | + + + | Ethnic Group | Not or | + + + Author + + + | Author | [facility] | + + + | Organization | [facility] | + + + | Address | Unknown | + + + | Phone | Unavailable | + + + Support + + + + + | Name | Relationship | Address | Phone | + + + + + | Hector Mack | ECON | [address] | | | | | [place] | | | | | [address] | | + + + + + Care Team Providers + +------+ + | Care Numerical Control Drill Press Operator Name | Role | Phone | [...] + + | 09/07/ | Office | Preoperative | 1, [facility] [address] | CAD (Coronary Artery | | 2008 | Visit | Medicine Clinic at | [facility] [address] | Disease); Gout; DM | | | | [facility] 4th Floor [address] | [place] [address] | Circ Dis Type II, | | | | [address] | | Uncontrolled (HCC); | | | | Code: [facility] | | Obesity; Achalasia; | | | | for Health and | | Panniculitis; | | | | Healing,4th Floor | | Bruise; Other | | | | [place], [place] | | Specified | | | | [address] | | Pre-Operative | | | | [phone] | | Examination | +--------+---------+ + + + Social History [...] | Blood Pressure | 156/76 | 09/07/2008 3:29 PM | | | | | PDT | | + + + + + | Pulse | 60 | 09/07/2008 3:29 PM | | | | | PDT | | + + + + + | Temperature | 36.5 C (97.7 F) | 09/07/2008 3:29 PM | | | | | PDT | | + + + + + | Respiratory Rate | 14 | 09/07/2008 3:29 PM | | | | | PDT | | + + + + + | Oxygen Saturation | 99% | 09/07/2008 3:29 PM | | | | | PDT | | + + + + + | Inhaled Oxygen | - | - | | | Concentration | | | | + + + + + | Weight | 91.2 kg (201 lb) | 09/07/2008 3:29 PM | | | | | PDT | | + + + + + | Height | 162.6 cm (5' 4") | 09/07/2008 3:29 PM | | | | | PDT | | + + + + + | Body Mass Index | 34.5 | 09/07/2008 3:29 PM | | | | | PDT | | + + + + + documented in this encounter Progress Yvette Lewis FNP - 09/07/2008 3:58 PM PDTSee Scanned H&P. documented in this encounter Plan of Treatment + + +--------+ + + | Name | Type | Priori | Associated Diagnoses | Order Schedule | | | | ty | | | + + +--------+ + + | NM COLLECTION VENOUS | Procedures | Routin | CAD (Coronary | Ordered: 09/07/2008 | | BLOOD,VENIPUNCTURE | | e | Artery Disease) DM | | | | | | Circ Dis Type II, | | | | | | Uncontrolled (HCC) | | | | | | Obesity Other | | | | | | Specified | | | | | | Pre-Operative | | | | | | Examination | | + + +--------+ + + documented as of this encounter Procedures + +--------+ + + + | Procedure Name | Priori | Date/Time | Associated Diagnosis | Comments | | | ty | | | | + +--------+ + + + | CBC ONLY | Routin | 09/07/2008 | CAD (Coronary | Results for this | | | e | 3:50 PM | Artery Disease) | procedure are in the | | | | PDT | Obesity Other | results section. | | | | | Specified | | | | | | Pre-Operative | | | | | | Examination | | + +--------+ + + + | INR | Routin | 09/07/2008 | Bruise | Results for this | | | e | 3:43 PM | | procedure are in the | | | | PDT | | results section. | + +--------+ + + + | BASIC METABOLIC SET | Routin | 09/07/2008 | CAD (Coronary | Results for this | | (NA, K, CL, TCO2, | e | 3:43 PM | Artery Disease) DM | procedure are in the | | BUN, CR, GLU, CA) | | PDT | Circ Dis Type II, | results section. | | | | | Uncontrolled (HCC) | | | | | | Obesity Other | | | | | | Specified | | | | | | Pre-Operative | | | | | | Examination | | + +--------+ + + + | APTT (ACT. PART. | Routin | 09/07/2008 | Bruise | Results for this | | THROMBO TIME) | e | 3:43 PM | | procedure are in the | | | | PDT | | results section. | + +--------+ + + + | 12 LEAD ECG | Routin | 09/07/2008 | CAD (coronary | Results for this | | | e | 3:38 PM | artery disease) | procedure are in the | | | | PDT | Type II or | results section. | | | | | unspecified type | | | | | | diabetes mellitus | | | | | | with peripheral | | | | | | circulatory | | | | | | disorders, | | | | | | uncontrolled(250.72) | | | | | | ([facility]) Obesity | | | | | | Other specified | | | | | | pre-operative | | | | | | examination | | + +--------+ + + + documented in this encounter Results CBC ONLY (09/07/2008 3:50 PM PDT) + +-------+ + + + | Component | Value | Ref Range | Performed | Pathologist | | | | | At | Signature | + +-------+ + + + | WHITE CELL | 7.0 | 4.4 - 11.0 K/cu | [facility] [...] +-------+ + + + | HEMOGLOBIN | 12.4 | 12.0 - 16.0 | [facility] | | | | | g/dL | DEPARTMENT | | | | | | OF | | | | | | PATHOLOGY | | + +-------+ + + + | HEMATOCRIT | 36.2 | 36.0 - 46.0 % | [facility] [...] +-------+ + + + | MCHC | 34.3 | 33.4 - 35.5 | [facility] | | | | | g/dL | DEPARTMENT | | | | | | OF | | | | | | PATHOLOGY | | + +-------+ + + + | RDW | 14.1 | 11.5 - 15.0 % | [facility] | | | | | | DEPARTMENT | | | | | | OF | | | | | | PATHOLOGY | | + +-------+ + + + | PLATELET | 190 | 150 - 400 K/cu | [facility] [...] + + + | [facility] | [address] | [place] [address] | | | PATHOLOGY | [address] | | | + + + + + | [facility] | [address] [place] [address] | [place] [address] | | | PATHOLOGY | [address] | | | + + + + + APTT (ACT. PART. THROMBO TIME) (09/07/2008 3:43 PM PDT) + + + + + + | Component | Value | Ref Range | Performed | Pathologist | | | | | At | Signature | + + + + + + | APTT | 26.5Comment: | 26.0 - 36.0 | [facility] | [...] + + + | [facility] | [address] | [place] [address] | | | PATHOLOGY | [address] | | | + + + + + | [facility] | [address] | [place] [address] | | | PATHOLOGY | [address] | | | + + + + + INR (09/07/2008 3:43 PM PDT) + + + + + + | Component | Value | Ref Range | Performed | Pathologist | | | | | At | Signature | + + + + + + | INR | 1.01Comment: | 0.90 - 1.20 INR | [facility] | | | | INR | | [...] DEPARTMENT OF | [address] | [place] [address] | | | PATHOLOGY | [address] | | | + + + + + | [facility] DEPARTMENT OF | [address] | [place] [address] | | | PATHOLOGY | [address] | | | + + + + + BASIC METABOLIC SET (NA, K, CL, TCO2, BUN, CR, GLU, CA) (09/07/2008 3:43 PM PDT) + +---------+ + + + | Component | Value | Ref Range | Performed | Pathologist | | | | | At | Signature | + +---------+ + + + | GLUCOSE, | 108 (H) | 60 - 99 mg/dL | [facility] | | | PLASMA | | | DEPARTMENT | | | (LAB) | | | OF | | | | | | PATHOLOGY | | + +---------+ + + + | BUN, PLASMA | 12 | 6 - 20 mg/dL | [facility] [...] +---------+ + + + | CHLORIDE, | 110 (H) | 97 - 108 mmol/L | [facility] | | | PLASMA | | | DEPARTMENT | | | (LAB) | | | OF | | | | | | PATHOLOGY | | + +---------+ + + + | TOTAL CO2, | 26 | 23 - 31 mmol/L | [facility] [...] Performed At | + + + | [id number] Estimated GFR > 60 mL/min/1.73 sq m if non- | [facility] | | [place] [id number] Estimated GFR > 60 mL/min/1.73 sq m if | [facility] | | [place] GFR is estimated using the MDRD equation [...] Vegetarian diet - Rapidly changing kidney function | | + + + + + + + + | Performing | Address | City/State/Zipcode | Phone Number | | Organization | | | | + + + + + | [facility] DEPARTMENT | [address] | [place] [address] | | | PATHOLOGY | [address] | | | + + + + + | [facility] DEPARTMENT OF | [address] | [place] [address] | | | PATHOLOGY | [address] | | | + + + + + 12 LEAD ECG (09/07/2008 3:38 PM PDT) + + + + + + | Component | Value | Ref Range | Performed | Pathologist | | | | | At | Signature | + + + + + + | VENTRICULAR | 54 | BPM | [facility] DEPT | | | RATE | | | OF | | | | | | CARDIOLOGY | | + + + + + + | ATRIAL RATE | 54 | BPM | [facility] | | | | | | OF | | | | | | CARDIOLOGY | | + + + + + + | P-R | 132 | ms | [facility] | | | INTERVAL | | | OF | | | | | | CARDIOLOGY | | + + + + + + | QRS | 86 | ms | [facility] | | | DURATION | | | OF | | | | | | CARDIOLOGY | | + + + + + + | QT | 498 | ms | [facility] | | | | | | OF | | | | | | CARDIOLOGY | | + + + + + + | QTC | 472 | ms | [facility] | | | | | | OF | | | | | | CARDIOLOGY | | + + + + + + | P AXIS | 44 | degrees | [facility] | | | | | | OF | | | | | | CARDIOLOGY | | + + + + + + | R AXIS | 11 | degrees | [facility] | | | | | | OF | | | | | | CARDIOLOGY | | + + + + + + | T AXIS | 47 | degrees | [facility] | | | | | | OF | | | | | | CARDIOLOGY | | + + + + + + | EKG | Sinus | | [facility] | | | DIAGNOSIS | bradycardiaOtherwise | | OF | | | | normal ECG"I have | | CARDIOLOGY | | | | personally interpreted | | | | | | this report, either | | | | | | alone or with a | | | | | | trainee."Confirmed by | | | | | | SHAKIRA GARCIA ([id number]) | | | | | | on 07-Sep-2008 17:54:46 | | | | + + + + + + | LINK TO | | | [facility] | | | [facility] [employer] | [...] view image for the detailed interpretation from [employer] results. | CARDIOLOGY | | | | + + + + + + + + | Performing | Address | City/State/Zipcode | Phone Number | | Organization | | | | + + + + + | [facility] DEPT OF | [address] | [place], [place] | | | CARDIOLOGY | [address] | [address] | | + + + + + | [facility] DEPT OF | [address] | [place], [place] | | | CARDIOLOGY | [address] | [address] | | + + + + + documented in this encounter Visit Diagnoses + + | Diagnosis | + + | CAD (coronary artery disease) Coronary atherosclerosis of unspecified type of vessel, | | [place] or graft | + + | Gout Gout, unspecified | + + | Type II or unspecified type diabetes mellitus with peripheral circulatory disorders, | | uncontrolled(250.72) Type II or unspecified type diabetes mellitus with peripheral | | circulatory disorders, uncontrolled | + + | Obesity Obesity, unspecified | + + | Achalasia Achalasia and cardiospasm | + + | Panniculitis Panniculitis, unspecified site | + + | Bruise Contusion of unspecified site | + + | Other specified pre-operative examination | + + documented in this encounter
--- OUTSIDE RECORDS SUMMARY | ~2018-08-20 | XMS | Encounter Summary ---
Demographics + + + | Address | [address] | | | [place] [address] | + + + | Home Phone | | + + + | Preferred Language | Unknown | + + + | Marital Status | | + + + | Taoist Affiliation | PRO | + + + | Race | White | + + + | Ethnic Group | Not or | + + + Author + + + | Author | [facility] | + + + | Organization | [facility] | + + + | Address | Unknown | + + + | Phone | Unavailable | + + + Support + + + + + | Name | Relationship | Address | Phone | + + + + + | Hector Mack | ECON | [address] | | | | | [place] | | | | | [address] | | + + + + + Care Team Providers + +------+ + | Care Library Media Technician Name | Role | Phone | [...] | | | | | Surgery at [facility] [address] [place], [place] | | | | | [address] Mail | [address] | | | | | Code: [facility] | [phone] | | | | | for Health and | | | | | | Healing, 5th Floor | | | | | | [place], [place] | | | | | | [address] | | | | | | [phone] | | | +--------+---------+ + + + [...] taht this will be her stable weight. Cindy shook is bothered by abdominal pannus. + intertrigo. [...]
--- OUTSIDE RECORDS SUMMARY | ~2018-08-20 | XMS | Encounter Summary ---
Demographics + + + | Address | [address] | | | [place] [address] | + + + | Home Phone | | + + + | Preferred Language | Unknown | + + + | Marital Status | | + + + | Sikhism Affiliation | PRO | + + + [...] [place] | | | | | [address] | | + + + + + Care Team Providers + +------+ + | Care Bartacker Name | Role | Phone | + +------+ + | Tuan Chan MD | PCP | | + +------+ + Encounter Details +--------+ + + + + | Date | Type | Department | Care Team | Description | +--------+ + + + + | 02/05/ | Hospital | Registration [address] | [place], | | | 2005 | Activity | S Rikki Powell MD | | | | | [facility] Mailcode: | | | | | | [id number] [place], [place] | | | | | | [address] | | | | | | [phone] | | | +--------+ + + + [...] | + +---------+--------+ + + | [address] | Imaging | Routin | [...] | [facility] DEPARTMENT OF | [address] | [place] [address] | | | PATHOLOGY | [address] | | | + + + + + | [facility] DEPARTMENT OF | [address] | [place] [address] | | | PATHOLOGY | [address] [...] | + + + + + | [facility] [place] [place] | [address] [place] [address] | [place] [address] | | | PATHOLOGY | [address] | | | + + + + + | [facility] DEPARTMENT | [address] [place] [address] | [place] [address] | | | PATHOLOGY | [address] [...] DEPARTMENT OF | [address] | [place] [address] | | | PATHOLOGY | [address] | | | + + + + + | [facility] DEPARTMENT OF | [address] | [place] [address] | | | PATHOLOGY | [address] [...] DEPARTMENT OF | [address] | [place] [address] | | | PATHOLOGY | [address] | | | + + + + + | [facility] DEPARTMENT | [address] | [place] [address] | | | PATHOLOGY | [address] | | | + + + + + PHOSPHORUS, PLASMA (02/08/2006 6:43 AM PST) + +-------+ + + + | Component | Value | Ref Range | Performed | Pathologist | | | | | At | Signature | + +-------+ + + + | PHOSPHORUS, | 2.8 | 2.4 - 4.7 mg/dL | [facility] | | | PLASMA | | | [...] | + + + + + | [facility] DEPARTMENT OF | [address] | [place] [address] | | | PATHOLOGY | [address] | | | + + + + + | [facility] DEPARTMENT OF | [address] | [place] [address] | | | PATHOLOGY | [address] [...] DEPARTMENT OF | [address] | [place] [address] | | | PATHOLOGY | [address] | | | + + + + + | [facility] DEPARTMENT OF | [address] | [place] [address] | | | PATHOLOGY | [address] [...] | + + + + + | [facility] DEPARTMENT OF | [address] | [place] [address] | | | PATHOLOGY | [address] | | | + + + + + | [facility] DEPARTMENT OF | [address] | [place] [address] | | | PATHOLOGY | [address] [...] | + + + + + | [facility] [place] [place] | [address] | [place] [address] | | | PATHOLOGY | [address] | | | + + + + + | [facility] [place] [place] | [address] | [place] [address] | | | PATHOLOGY | [address] | | | + + + + + PHOSPHORUS, PLASMA (02/08/2006 4:30 AM PST) + +-------+ + + + | Component | Value | Ref Range | Performed | Pathologist | | | | | At | Signature | + +-------+ + + + | PHOSPHORUS, | 2.7 | 2.4 - 4.7 mg/dL | [facility] | | | PLASMA | | [...] | + + + + + | [facility] DEPARTMENT OF | [address] | [place] [address] | | | PATHOLOGY | [address] | | | + + + + + | [facility] DEPARTMENT OF | [address] | [place] [address] | | | PATHOLOGY | [address] [...] | + + + + + | [facility] [place] [place] | [address] | [place] [address] | | | PATHOLOGY | [address] | | | + + + + + | [facility] [place] [place] | [address] | [place] [address] | | | PATHOLOGY | [address] [...] | + + + + + | [facility] [place] [place] | [address] | [place] [address] | | | PATHOLOGY | [address] | | | + + + + + | [facility] [place] [place] | [address] [place] [address] | [place] [address] | | | PATHOLOGY | [address] [...] | + + + + + | [facility] DEPARTMENT OF | [address] | [place] [address] | | | PATHOLOGY | [address] | | | + + + + + | [facility] DEPARTMENT OF | [address] | [place] [address] | | | PATHOLOGY | [address] [...] | + + + + + | [facility] [place] [place] | [address] | [place] [address] | | | PATHOLOGY | [address] | | | + + + + + | [facility] [place] [place] | [address] [place] [address] [address] | [place] [address] | | | PATHOLOGY | [address] [...] | + + + + + | [facility] [place] [place] | [address] | [place] [address] | | | PATHOLOGY | [address] | | | + + + + + | [facility] [place] [place] | [address] | [place] [address] | | | PATHOLOGY | [address] [...] DEPARTMENT OF | [address] | [place] [address] | | | PATHOLOGY | [address] | | | + + + + + | [facility] DEPARTMENT | [address] | [place] [address] | | | PATHOLOGY | [address] [...] | + + + + + | [facility] DEPARTMENT OF | [address] | [place] [address] | | | PATHOLOGY | [address] | | | + + + + + | [facility] DEPARTMENT OF | [address] | [place] [address] | | | PATHOLOGY | [address] [...] | + + + + + | [facility] [place] [place] | [address] | [place] [address] | | | PATHOLOGY | [address] | | | + + + + + | [facility] [place] [place] | [address] | [place] [address] | | | PATHOLOGY | [address] | | | + + + + + MAGNESIUM, PLASMA (02/07/2006 4:30 AM PST) + +-------+ + + + | Component | Value | Ref Range | Performed | Pathologist | | | | | At | Signature | + +-------+ + + + | MAGNESIUM,P | 1.9 | 1.8 - 2.5 mg/dL | [facility] | | | LASMA | | | [...] | + + + + + | [facility] DEPARTMENT OF | [address] | [place] [address] | | | PATHOLOGY | [address] | | | + + + + + | [facility] DEPARTMENT OF | [address] | [place] [address] | | | PATHOLOGY | [address] [...] DEPARTMENT OF | [address] | [place] [address] | | | PATHOLOGY | [address] | | | + + + + + | [facility] DEPARTMENT OF | [address] | [place] [address] | | | PATHOLOGY | [address] [...] | + + + + + | [facility] DEPARTMENT OF | [address] | [place] [address] | | | PATHOLOGY | [address] | | | + + + + + | [facility] DEPARTMENT OF | [address] | [place] [address] | | | PATHOLOGY | [address] [...] No. | | | | | | [phone], medical | | | | | | record [id number], | | | | | | ICD-9 783.3 | | | | | | EXAM: Esophagram. | | | | | | HISTORY: Status post | | | | | | Heller myotomy for | | | | | | achalasia as well | | | | | | asReux-N-Y surgery for | | | | | | obesity. | | | | | | [...] | | | | | | gastric | | | | | | remnant. There is | | | | | | noleak. There is slow | | | | | | emptying from the | | | | | | gastric remnant into | | | | | | thejejunum. Mild | | | | | | esophageal status | | | | | | throughout the entire | | | | | | esophagus isseen. | | | | | | IMPRESSION: 1. Mild | | | | | | esophageal stasis. | | | | | | 2. Negative for leak. | | | | | | | [...] | + + + + + | [facility] [place] [place] | [address] | [place] [address] | | | PATHOLOGY | [address] | | | + + + + + | [facility] [place] | [address] | [place] [address] | | | PATHOLOGY | [address] [...] DEPARTMENT OF | [address] | [place] [address] | | | PATHOLOGY | [address] | | | + + + + + | [facility] DEPARTMENT OF | [address] | [place] [address] | | | PATHOLOGY | [address] [...] | + + + + + | [facility] DEPARTMENT OF | [address] | [place] [address] | | | PATHOLOGY | [address] | | | + + + + + | [facility] DEPARTMENT OF | [address] | [place] [address] | | | PATHOLOGY | [address] [...] | + + + + + | [facility] DEPARTMENT | [address] | [place] [address] | | | PATHOLOGY | [address] | | | + + + + + | [facility] | [facility] [address] | [place] [address] | | | PATHOLOGY | [address] [...] | + + + + + | [facility] DEPARTMENT | [address] | [place] [address] | | | PATHOLOGY | [address] | | | + + + + + | [facility] DEPARTMENT OF | [address] | [place] [address] | | | PATHOLOGY | [address] [...] | + + + + + | [facility] DEPARTMENT OF | [facility] | [place] [address] | | | PATHOLOGY | [address] | | | + + + + + | [facility] DEPARTMENT OF | [address] | [place] [address] | | | PATHOLOGY | [address] [...] | + + + + + | [facility] [place] [place] | [address] [facility] [address] | [place] [address] | | | PATHOLOGY | [address] | | | + + + + + | [facility] [place] [place] | [facility] | [place] [address] | | | PATHOLOGY | [address] [...] | + + + + + | [facility] DEPARTMENT OF | [address] | [place] [address] | | | PATHOLOGY | [address] | | | + + + + + | [facility] DEPARTMENT OF | [address] | [place] [address] | | | PATHOLOGY | [address] [...] DEPARTMENT OF | [address] | [place] [address] | | | PATHOLOGY | [address] | | | + + + + + | [facility] [place] [place] | [address] | [place] [address] | | | PATHOLOGY | [address] [...] | | | | | atelectasis is | | | | | | present. Themediastin | | | | | | um is dense and wide and | | | [...] | | | | | | brachiocephalic | | | | | | vein. Differentialwou | | | | | | ld include a line | | | | | | outside the superior | | | | | | vena cava with a | | | | | | venousmediastinal | | | | | | hematoma. Attention | | | | | | on a follow up | | | | | | examination issuggested. | | | | | | | | | | + + + + + + + + | Specimen | + + | | + + + +---------+ + + | Performing | Address | City/State/[facility] | Phone Number | | Organization [...] % | | | | A1C | | | | | | | Non-Diabetic: | | | | | | | | | | | | 4.0-5.7 | | | | | | % Risk For | | | | | | Chronic Complications in | | | | | | Adults: Low | | | | | | risk of | | | | | | complications: | | | | | | <7.0 % | | | | | | Intermediate | | | | | | risk of | | | | | | complications 7.0-7.9 | | | | | | % High risk of | | | | | | complications | | | | | | >7.9 % | | | | | | Test performed by | | | | | | [facility] | | | | | | [facility]. | | | | + + + + + + + + | Specimen | + + | | + + + + + + + | Performing | Address | City/State/Zipcode | Phone Number | | Organization | | | | + + + + + | [facility] | [address] | [place] [address] | | | LABORATORY | | | | + + + + + documented in this encounter Visit Diagnoses Not on filedocumented in this encounter"
--- OUTSIDE RECORDS SUMMARY | ~2018-08-20 | XMS | Encounter Summary ---
Demographics + + + | [address] | [address] | | | [place] [address] | + + + | Home Phone | | + + + | Preferred Language | Unknown | + + + | Marital Status | | + + + | Temple Affiliation | PRO | + + + | Race | White | + + + | Ethnic Group | Not or | + + + Author + + + | Author | [facility] | + + + | Organization | [facility] | + + + | Address | Unknown | + + + | Phone | Unavailable | + + + Support + + + + + | Name | Relationship | Address | Phone | + + + + + | Hector Mack | ECON | [phone] | | | | | [place] | | | | | [phone] | | + + + + + Care Team Providers + +------+ + | Care Senior Procurement Manager Name | Role | Phone | [...] | | | | | | [place] [address] | | | +--------+--------+ + + + [...]
--- OUTSIDE RECORDS SUMMARY | ~2018-08-20 | XMS | Encounter Summary ---
Demographics + + + | Address | [address] | | | [place] [address] | + + + | Home Phone | | + + + | Preferred Language | Unknown | + + + | Marital Status | | + + + | Spiritism Affiliation | PRO | + + + [...] [place] | | | | | [address] | | + + + + + Care Team Providers + +------+ + | Care Field Account Director Name | Role | Phone | + +------+ + | Tuan Chan MD | PCP | | + +------+ + Encounter Details +--------+ + + + + | Date | Type | Department | Care Team | Description | +--------+ + + + + | 02/06/ | Respiratory | | Other, Faculty | | | 2005 | Therapy | | [phone] | | +--------+ + + + + [...] | | | | | Ap Butler, LAND MOBILE RADIO TECHNICIAN | | | | + + + [...] SPECIAL | [address] | [place], [place] | | | DIAGNOSTICS - | [address] | [address] | | | PULMONARY FUNCTION | | [...] AMY DOWNS | [address] | [place], [place] | | | DIAGNOSTICS - | [address] | [address] | | | PULMONARY FUNCTION | | [...] | | | | Refused HR= 67 | | | | | | RR= 16 SPO2=98 | | | | | | Noe Alas RCP | | | | + + [...] AMY DOWNS | [address] | [place], [place] | | | DIAGNOSTICS - | [address] | [address] | | | PULMONARY FUNCTION | | [...] | | | | Refused HR= 76 | | | | | | RR= 18 SPO2=99 | | | | | | Noe Alas RCP | | | | + + [...] AMY SPECIAL | [address] | [place], [place] | | | DIAGNOSTICS - | [address] | [address] | | | PULMONARY FUNCTION | | [...] | | | | want to wear | | | | | | it. HR= 72 | | | | | | RR= 12 SPO2= 94 | | | | | | Noe Alas, LAND MOBILE RADIO TECHNICIAN | | | | + + + [...] AMY SPECIAL | [address] | [place], [place] | | | DIAGNOSTICS - | [address] | [address] | | | PULMONARY FUNCTION | | [...] | + + + + + | A[facility] SPECIAL | [address] | [place], [place] | | | DIAGNOSTICS - | [address] | [address] | | | PULMONARY FUNCTION | | [...] | | | Y | Jeff Watts LAND MOBILE RADIO TECHNICIAN | | | | + + + [...] AMY SPECIAL | [address] | [place], [place] | | | DIAGNOSTICS - | [address] | [address] | | | PULMONARY FUNCTION | | [...] | | | | REFUSES TO WEAR | | | | | | IT HR= [id number]= | | | | | | 18 SPO2= 94 Taizz | | | | | | Medalia, LAND MOBILE RADIO TECHNICIAN | | | | + + + [...] [facility] SPECIAL | [address] | [place], [place] | | | DIAGNOSTICS - | [address] | [address] | | | PULMONARY FUNCTION | | [...] | | | | | | Mark Giraldo RCP | | | | + + [...] AMY SPECIAL | [address] | [place], [place] | | | DIAGNOSTICS - | [address] | [address] | | | PULMONARY FUNCTION | | [...] | | | | | Y | CASPER NoelP | | | | + + + [...] AMY SPECIAL | [address] | [place], [place] | | | DIAGNOSTICS - | [address] | [address] | | | PULMONARY FUNCTION | | [...] | | | | Refusing HR= 92 | | | | | | RR= 16 BREATHSOUNDS = | | | | | | CLEAR . SPO2= 92 | | | | | | Sirisha Vigil RCP | | | [...] AMY DOWNS | [address] | [place], [place] | | | DIAGNOSTICS - | [address] | [address] | | | PULMONARY FUNCTION | | [...] | | | | | OBSTRUCTIVESLEEP APNEA | | | | | | . CURRENT PULMONARY | | | | | [...] 10. | | | | | | EAR NOSE AND THROAT SPECIALIST IN USE: PATIENT SELF | | | | | | ADMINISTERED | | | | | | PAINMEDICATION. TEMP | | | | | | = 37.4 C, HR | | | | | | = 86 , RR = 16 , | | | | | | SaO2 = 93 % | | | | | | ONNASAL CANNULA AT 2 | | | | | | GOOD NON-PRODUCTIVE | | | | | | COUGH: DIMINISHED | | | | | | . NORMAL,QUIET | | | | | | BREATHING . AMBULATORY . | | | | | | COOPERATIVE . SPUTUM | | | | | | CULTURES: NONE | | | | | | [id number] HOURS . . | | | | | | CHEST IMAGING: NONE | | | | | | WITHIN 72 HOURS . | | | | | | THERAPEUTIC | | | | | | GOALS:CONTINUE HOME | | | | | | REGIMIN . PLAN: | | | | | | CONTINUE HOME | | | | | | REGIMEN. . Sirisha | | | | | | [...] [facility] | [address] | [place], [place] | | | DIAGNOSTICS - | [address] | [address] | | | PULMONARY FUNCTION | | [...] [facility] SPECIAL | [address] | [place], [place] | | | DIAGNOSTICS - | [address] | [address] | | | PULMONARY FUNCTION | | | | + + + + + documented in this encounter Visit Diagnoses Not on filedocumented in this encounter"
--- OUTSIDE RECORDS SUMMARY | ~2018-08-20 | XMS | Encounter Summary ---
Demographics + + + | Address | [address] | | | [place] [address] | + + + | Home Phone | | + + + | Preferred Language | Unknown | + + + | Marital Status | | + + + | Anabaptist Affiliation | PRO | + + + | Race | White | + + + | Ethnic Group | Not or | + + + Author + + + | Author | [facility] | + + + | Organization | [facility] | + + + | Address | Unknown | + + + | Phone | Unavailable | + + + Support + + + + + | Name | Relationship | Address | Phone | + + + + + | Hector Mack | ECON | [address] | | | | | [place] | | | | | [address] | | + + + + + Care Team Providers + +------+ + | Care Locum Tenens Name | Role | Phone | + [...] 2005 | Registratio | [address] | [address] | | | | n | [facility] Mailcode: | [place], | | | | | [address] [place], [place] | [place] [address] | | | | | [address] | [phone] | | | | | [phone] | | | +--------+ + + + [...]
--- OUTSIDE RECORDS SUMMARY | ~2018-08-20 | XMS | Encounter Summary ---
Demographics + + + | Address | [address] | | | [place] [address] | + + + | Home Phone [...] [place] | | | | | [address] | | + + + + + Care Team Providers + +------+ + | Care Heat Transfer Technician Name | Role | Phone | [...] | | | | | Procedures | [address] | [place] | | | | | CONSULT TO | [facility] | [facility] | | | | | [place] | [place], [place] | CHILDREN | | | | | | [address] | [address] [facility] | | | | | | Phone: | DEACON BYRNE | | | | | | [phone] | [place], | | | | | | Fax: | [place] [address] | | | | | | [phone] | Phone: | | | | | | | [phone] | | | | | | | Fax: | | | | | | | [phone] | +--------+--------+ + + + + Reason [...] | Plastic and | Gia Amin, | Intertginetteo (Primary | | 2007 | Visit | Reconstructive | [address] | Dx) | | | | Surgery at [facility] [address] | [place], [place] | | | | | [address] | [address] | | | | | Code: [facility] | [phone] | | | | | for Health and | | | | | | [facility] Floor | | | | | | [place], [place] | | | | | | [address] | | | | | | [phone] | | | +--------+---------+ + + + [...] documented as of this encounter Progress Notes Gia Amin - 08/20/2007 8:49 AM SEANI saw Germaine along with Dr. Vasquez. She has seen a diesel inspector without any change in her rash. She [...] known rash that was seen by a diesel inspector, per patient. There was no specific treatab [...]
--- OUTSIDE RECORDS SUMMARY | ~2018-08-20 | XMS | Encounter Summary ---
Demographics + + + | Address | [address] | | | [place] [address] | + + + | Home Phone [...] [place] | | | | | [address] | | + + + + + Care Team Providers + +------+ + | Care Rehabilitation Aide/Scheduler Name | Role | Phone | + +------+ + | Tuan Chan MD | PCP | | + +------+ + Encounter Details +--------+ + + + + | Date | Type | Department | Care Team | Description | +--------+ + + + + | 07/25/ | Letter-Justice | | Letter, Clinic | [...] as of this encounter Progress Notes Interface, City Assessor In - 07/27/2005 2:07 AM PDT [id number] 07/25/2005 07/25/2005 [id number] ARETHA RAE [address] [place] [address] or July 25, 2005 Tuan Chan M.D. [address] [place], [place] RE: GERMAINE CARIAS MR #: [id number] Dear Dr. Chan: Your patient Ms. Germaine Carias returned for an office visit at [facility] on , July 25, 2005. She, as you recall, is an obese female, diabetic, hypertensive with coronary disease who has had progressive dysphagia for solids and liquids over the past 8 to 10 years. She has had several attempts at balloon dilation for her dysphagia by Dr. Walker without success. Her esophageal manometry performed here is compatible with achalasia, and I performed an EGD with Botox injection of the lower esophageal sphincter. This was done approximately a month ago, and unfortunately the patient has had no significant relief with Botox injection. At this point, I think it would be worth getting an opinion from one of our general surgeons, Dr. Papi Johnson who does laparoscopic Heller myotomy for achalasia. Accordingly, I will ask Dr. Johnson to see this patient and consider her for the surgery. She certainly is at an increased risk due to the ravages of obesity, diabetes, hypercholesterolemia, hypertension, and coronary artery disease. However, it is somewhat reassuring that this patient is on a fairly good diet, and it has increased her activity, and she claims that she has lost about 45 pounds over the last 7 to 8 months. Perhaps, if this weight loss continues then she may become a better candidate some time down the line for the surgery. At any rate, I will ask Dr. Johnson to see the patient and review our studies and see what he would suggest. Thank you very much for this kind referral. Sincerely, Wes Wolff M.D. [facility] / [id number] / [id number] / [id number] / cc: Papi Johnson M.D. [facility] General Surgery documented i n this encounter Plan of Treatment Not on filedocumented as of this encounter Visit Diagnoses Not on filedocumented in this encounter"
--- OUTSIDE RECORDS SUMMARY | ~2018-08-20 | XMS | Encounter Summary ---
Demographics + + + | Address | [address] | | | [place] [address] | + + + | Home Phone | | + + + | Preferred Language | Unknown | + + + | Marital Status | | + + + | Hindu Affiliation | PRO | + + + | Race | White | + + + | Ethnic Group | Not or | + + + Author + + + | Author | [facility] | + + + | Organization | [facility] | + + + | Address | Unknown | + + + | Phone | Unavailable | + + + Support + + + + + | Name | Relationship | Address | Phone | + + + + + | Hector Mack | ECON | [address] | | | | | [place] | | | | | [address] | | + + + + + Care Team Providers + +------+ + | Care Chief Drafter Name | Role | Phone | + [...] Description | +--------+---------+ + + + | 11/22/ | Office | General Surgery | Papi Johnson MD | Perryalasia (Primary | | 2005 | Visit | [address] | [address] | Dx) | | | | [address] | [address] [place], | | | | | Mailcode: L[address] | [place] [address] | | | | | [facility] | [phone] | | | | | [address] [place], | | | | | | [place] [address] | | | | | | [phone] | | | +--------+---------+ + + + [...] + + + | Blood Pressure | 116/70 | 11/22/2005 9:25 AM | | | | | PDT | | + + + + + | Pulse | 66 | 11/22/2005 9:25 AM | | | | | PDT | | + + + + + | Temperature | 37.3 C (99.2 F) | 11/22/2005 9:25 AM | | | | | PDT [...] + + + + | Weight | 140.7 kg (310 lb 1.6 | 11/22/2005 9:25 AM | | | | oz) | PDT | | + + + + + | Height | - | - | | + + + + + | Body Mass Index | - | - | | + + + + + documented in this encounter Progress Notes Ryland Ortega - 11/22/2005 11:32 AM PDT PC: Achalasia HPC: Mrs. Germaine Heard is a pleasant, obese, 59-year-old female has a long history o f dysphagia for solids and liquids. She does have quite a long history of GERD in the past but approximately 7 years ago developed dysphagia which has been mildly progressive over the years. The dysphagia is present both for solids and liquids and is especially worse with milk, and she has to chew her foods really well. Despite eating slowly and chewing her foods well, she vomits often after her meals due to food sticking in her esophagus. This does not occur on every o ccasion but happens frequently. She vomits several times a week. She has had three esophage al balloon dilations without success in the past as well as a botox injection to the LES. Ho wever, her workup indicates no definite esophageal stricture, and indeed on her last endoscopy on October 16, 2004, by Dr. Walker, there was a dilated esophagus which seemed fairly atonic, but there was only slight resistance passing the scope through the EG junction. Her dilations in the past have given her some re lief but this has not lasted long. On barium studies she does appear to have achalasia with increase LES pressures and hold up of contract proximal to this. She has had esophageal manometry which showed no evident peristaltic contractions in the esophagus. The patient is quite obese and really has not lost any weight due to this dysphagia althou gh she has been on a diet and exercise over the last 6 months and has lost about 22 pounds voluntarily. She is also interested in having Bariatric surgery to manage her obesity. PMH: 1. Diabetes mellitus controlled on glyburide. 2. Hypercholesterolemia, controlled on lovastatin. 3. Hypertension, treated with Toprol 5 mg a day and Klor-Con. 4. Coronary artery disease with prior coronary stent placement and 4-vessel CABG in 1999. Prior surgery includes appendectomy, tonsillectomy, umbilical herniorrhaphy, shoulder surgery, cholecystectomy, quadruple bypass and coronary stent placement. Current outpatient prescriptions prior to 11/22/05: CELEBREX 200 MG CAP take 1 capsule [...] day and at bedtime Disp: R fl: SHE IS ALLERGIC TO CODEINE. Family history includes father who of congestive failure, mother of a heart attack who had colon cancer at age 64. The patient had a normal colonoscopy 1 year ago. Brother with cardiac problems. She smoked, has about a 80-hztr-znqx smoking history but has not smoked in 17 years. 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 Physical examination: Reveals a pleasant, alert, 59-year-old female who is obese, and in no distress. Her weight is 310 pounds, Filed Vitals: 11/22/2005 9:25 AM BP: 116/70 Pulse: 66 Temp: 99.2 F (37.3 C) TempSrc: Oral Weight: 140.7 kg (310 lbs 1.6 oz) Her chest is clear to auscultation. Cardiac examination reveals no murmurs, thrills, or friction rubs. Her chest reveals a scar from her CABG. Her abdomen reveals 2 scars, 1 from her open cholecystectomy and 1from an umbilical herniorrhaphy. There is no umbilicus present. There are no masses or tenderness, there are no bruits, and there is no hepatosplenomegaly. Peripheral pulses are normal. No hernias felt. Impression: 1. Chronic dysphagia, probably secondary to esophageal achalasia 2. Marked obesity. p: The patient would benefit from A heller myotomy but is also considering Bariatric surger y. We saw the patient today with Dr. Johnson and Dr. Ayala (our bariatric surgery speciali ) and we will be discussing this interresitng case with the bariatric conference. She pose s a difficult dilema because of the issue of performing baraitric surgery on a patinet who a lso needs a heller's myotomy. Though this problem is rare we will plan for a nutrition consu lt and psych consult to paln for the surgeries. We will Discussion: This patient probably has achalasia of [...] and Botox injection into her lower esophageal sphincter.Electronically signed by Ryland Ortega at 6 11:32 AM PDTdocumented in this encounter Plan of Treatment Not on filedocumented as of this encounter Visit Diagnoses + + | Diagnosis | + + | Achalasia - Primary Achalasia and cardiospasm | + + documented in this encounter"
--- OUTSIDE RECORDS SUMMARY | ~2018-08-20 | XMS | Encounter Summary ---
Demographics + + + | Address | [address] | | | [place] [address] | + + + | Home Phone [...] [place] | | | | | [address] | | + + + + + Care Team Providers + +------+ + | Care Shoe Dresser Name | Role | Phone | + [...] as of this encounter Progress Notes Interface, Ball Winder In - 02/15/2006 2:34 AM [facility] [id number] ANTONIETTAKRZYSZTOF RAE [id number] Referred From and Faxed To: Tim Paula [...] 4:01. Length of Visit: Sixty-one minutes of njpp-bk-swmi consult with the patient and her friend [...] with myself, dietitian post-surgery. She is from [place]. This visit can be scheduled when she has a followup appointment with her surgeon here at [facility] Patient's Comprehension: This visit was [...] friend Lulu. Caitlyn Chery R.D., L.D. / [id number] / [id number] / [id number] / cc: Chey Milan A.NSoynPSony Electronically signed by Caitlyn Chery 02-14-2006 01:37:50 PM documented i n this encounter Plan of Treatment Not on filedocumented as of this encounter Visit Diagnoses Not on filedocumented in this encounter"
--- OUTSIDE RECORDS SUMMARY | ~2018-08-20 | XMS | Encounter Summary ---
Demographics + + + | Address | [address] | | | [place] [address] | + + + | Home Phone [...] + + + | Author | [facility] | + + + | Organization | [facility] | + + + | Address | Unknown | + + + | Phone | Unavailable | + + + Support + + + + + | Name | Relationship | Address | Phone | + + + + + | Hector Mack | ECON | [address] | | | | | [place] | | | | | [address] | | + + + + + Care Team Providers + +------+ + | Care Monotyper Name | Role | Phone | + [...] Dx) | | | | Surgery at [facility] [address] | | | | | | [address] Mail | | | | | | Code: [address] | | | | | | for Health and | | | | | | [address] | | | | | | [place], [place] | | | | | | [address] | | | | | | [phone] | | | +--------+---------+ + + + [...] MD - 06/08/2008 10:23 AM PDTSubtamir ctive: Germiane ArteagaDennisFrederick presents 1 months status post panniculectomy [...]
--- OUTSIDE RECORDS SUMMARY | ~2018-08-20 | XMS | Encounter Summary ---
Demographics + + + | Address | [address] | | | [place] [address] | + + + | Home Phone | | + + + | Preferred Language | Unknown | + + + | Marital Status | | + + + | Orthodox Affiliation | PRO | + + + | Race | White | + + + | Ethnic Group | Not or | + + + Author + + + | Author | [facility] | + + + | Organization | [facility] | + + + | Address | Unknown | + + + | Phone | Unavailable | + + + Support + + + + + | Name | Relationship | Address | Phone | + + + + + | Hector Mack | ECON | [address] | | | | | [place] | | | | | [address] | | + + + + + Care Team Providers + +------+ + | Care Sterile Products Processor Name | Role | Phone | + [...] | | | | Surgery at [facility] [address] | [address] [place], [place] | | | | | [address] Mail | [address] | | | | | Code: [facility] | [phone] | | | | | for Health and | | | | | | Healing, 5th Floor | | | | | | [place], [place] | | | | | | [address] | | | | | | [phone] | | | +--------+---------+ + + + [...]
--- OUTSIDE RECORDS SUMMARY | ~2018-08-20 | XMS | Encounter Summary ---
Demographics + + + | Address | [address] | | | [place] [address] | + + + | Home Phone | | + + + | Preferred Language | Unknown | + + + | Marital Status | | + + + | Muslim Affiliation | PRO | + + + | Race | White | + + + | Ethnic Group | Not or | + + + Author + + + | Author | [facility] | + + + | Organization | [facility] | + + + | Address | Unknown | + + + | Phone | Unavailable | + + + Support + + + + + | Name | Relationship | Address | Phone | + + + + + | Hector Mack | ECON | [address] | | | | | [place] | | | | | [address] | | + + + + + Care Team Providers + +------+ + | Care Profiling Machine Set Up Operator Name | Role | Phone | + +------+ + | Tuan Chan MD | PCP | | + +------+ + Encounter Details +--------+ + + + + | Date | Type | Department | Care Team | Description | +--------+ + + + + | 06/02/ | Ancillary | Registration [address] | [address], | | | 2007 | Registratio | [address] | [address] | | | | n | [facility] Mailcode: | [place], [place] | | | | | [address] [place], [place] | [address] | | | | | [address] | [phone] | | | | | [phone] | | | +--------+ + + + [...]
--- OUTSIDE RECORDS SUMMARY | ~2018-08-20 | XMS | Encounter Summary ---
Demographics + + + | Address | [address] | | | [place] [address] | + + + | Home Phone [...] + + + | Author | [facility] | + + + | Organization | [facility] | + + + | Address | Unknown | + + + | Phone | Unavailable | + + + Support + + + + + | Name | Relationship | Address | Phone | + + + + + | Hector Mack | ECON | [address] | | | | | [place] | | | | | [address] | | + + + + + Care Team Providers + +------+ + | Care Cooler Room Worker Name | Role | Phone | + +------+ + | Tuan Chan MD | PCP | | + +------+ + Encounter Details +--------+ + + + + | Date | Type | Department | Care Team | Description | +--------+ + + + + | 11/22/ | Document-Sc | UNKNOWN DEPARTMENT | Unknown . | | | 2005 | anned | [address] [facility] | | | | | | [facility] | | | | | | [place], [place] | | | | | | [address] | | | +--------+ + + + [...]
--- OUTSIDE RECORDS SUMMARY | ~2018-08-20 | XMS | Encounter Summary ---
Demographics + + + | Address | [address] | | | [place] [address] | + + + | Home Phone | | + + + | Preferred Language | Unknown | + + + | Marital Status | | + + + | Baptism Affiliation | PRO | + + + | Race | White | + + + | Ethnic Group | Not or | + + + Author + + + | Author | [facility] | + + + | Organization | [facility] | + + + | Address | Unknown | + + + | Phone | Unavailable | + + + Support + + + + + | Name | Relationship | Address | Phone | + + + + + | Hector Mack | ECON | [address] | | | | | [place] | | | | | [address] | | + + + + + Care Team Providers + +------+ + | Care Time Lock Expert Name | Role | Phone | + +------+ + | Tuan Chan MD | PCP | | + +------+ + Reason for Visit + + + | Reason | Comments | + + + | Postoperative visit | Suture removal | + + + Encounter Details +--------+ + + + + | Date | Type | Department | Care Team | Description | +--------+ + + + + | 05/17/ | Telephone | Plastic and | Aysha Blackburn | Postoperative visit | | 2008 | | Reconstructive | MD Tristin | (Suture removal) | | | | Surgery at [facility] [address] | | | | | | [address] | | | | | | Code: [facility] | | | | | | for Health and | | | | | | Healing, 5th Floor | | | | | | [place], [place] | | | | | | [address] | | | | | | [phone] | | | +--------+ + + + [...]
--- OUTSIDE RECORDS SUMMARY | ~2018-08-20 | XMS | Encounter Summary ---
Demographics + + + | Address | [address] | | | [place] [address] | + + + | Home Phone [...] Author + + + | Author | [facility] | + + + | Organization | [facility] | + + + | Address | Unknown | + + + | Phone | Unavailable | + + + Support + + + + + | Name | Relationship | Address | Phone | + + + + + | Hector Mack | ECON | [address] | | | | | [place] | | | | | [address] | | + + + + + Care Team Providers + +------+ + | Care Last Model Maker Name | Role | Phone | + [...] | on | Medicine Clinic at | [address] | | | | | MPV 4th Floor Day | [address] | | | | | Stay [address] | [place], [place] | | | | | [facility] [address] | [address] | | | | | Mailcode: UHN[address] | [phone] | | | | | Ayah Nolan | | | | | | [address] [place], [place] | | | | | | [address] | | | | | | [phone] | | | +--------+ + + + [...]
--- OUTSIDE RECORDS SUMMARY | ~2018-08-20 | XMS | Encounter Summary ---
Demographics + + + | Address | [address] [facility] [address] | | | [place] [address] | + + + | Home Phone [...] [place] | | | | | [address] | | + + + + + Care Team Providers + +------+ + | Care Tailor Helper Name | Role | Phone | [...] Dx) | | | | Surgery at [facility] [address] | | | | | | [place] Mail | | | | | | Code: [address] | | | | | | for Health and | | | | | | [address] | | | | | | [place], [place] | | | | | | [address] | | | | | | [phone] | | | +--------+---------+ + + + [...]
--- OUTSIDE RECORDS SUMMARY | ~2018-08-20 | XMS | Encounter Summary ---
Demographics + + + | Address | [address] [place] [address] | | | [place] [address] | + + + | Home Phone [...] [place] | | | | | [address] | | + + + + + Care Team Providers + +------+ + | Care Pain Medicine Physician Name | Role | Phone | [...] Request | | 2007 | | [address] | MD [address] | ([place] ) | | | | Mail Code: CH10U | [place], [place] | | | | | [facility] | [address] | | | | | and [place], | [phone] | | | | | Floor [place], [place] | | | | | | [address] | | | | | | [phone] | | | +--------+--------+ + + + [...]
--- OUTSIDE RECORDS SUMMARY | ~2018-08-20 | XMS | Encounter Summary ---
Demographics + + + | Address | [address] [facility] [address] | | | [place] [address] | + + + | Home Phone | | + + + | Preferred Language | Unknown | + + + | Marital Status | | + + + | Spiritism Affiliation | PRO | + + + | Race | White | + + + | Ethnic Group | Not or | + + + Author + + + | Author | [facility] | + + + | Organization | [facility] | + + + | Address | Unknown | + + + | Phone | Unavailable | + + + Support + + + + + | Name | Relationship | Address | Phone | + + + + + | Hector Mack | ECON | [address] | | | | | [place] | | | | | [address] | | + + + + + Care Team Providers + +------+ + | Care Shot Hole Driller Name | Role | Phone | + [...] | | | | [address] | [address] [place], | | | | | Mailcode: L223A | [place] [address] | | | | | [facility] | [phone] | | | | | [address] [place], | | | | | | [place] [address] | | | | | | [phone] | | | +--------+---------+ + + + [...] cardiac problems. She smoked, has about a 93-hgxo-iooc smoking history but has not smoked in [...]
--- OUTSIDE RECORDS SUMMARY | ~2018-08-20 | XMS | Encounter Summary ---
Demographics + + + | Address | [address] | | | [place] [address] | + + + | Home Phone [...] [place] | | | | | [address] | | + + + + + Care Team Providers + +------+ + | Care Cow Washer Name | Role | Phone | [...] as of this encounter Progress Notes Interface, Salesperson Sewing Machines In - 02/15/2006 2:34 AM [facility] [id number] ANTONIETTAKRZYSZTOF RAE [id number] Referred From and Faxed To: Tim Paula [...] 4:01. Length of Visit: Sixty-one minutes of lydf-qy-sqmz consult with the patient and her friend [...] with myself, dietitian post-surgery. She is from [place]. This visit can be scheduled when she has a followup appointment with her surgeon here at [facility] Patient's Comprehension: This visit was incredibly important, [...] friend Lulu. Caitlyn Chery R.D., L.D. / [id number] / [id number] / [id number] / cc: Chey Milan A.NSonyPSony Electronically signed by Caitlyn Chery 02-14-2006 01:37:50 PM documented i n this encounter Plan of Treatment Not on filedocumented as of this encounter Visit Diagnoses Not on filedocumented in this encounter"
--- OUTSIDE RECORDS SUMMARY | ~2018-08-20 | XMS | Encounter Summary ---
Demographics + + + | Address | [address] [place] [address] | | | [place] [address] | + + + | Home Phone | | + + + | Preferred Language | Unknown | + + + | Marital Status | | + + + | Christianity Affiliation | PRO | + + + [...] [place] | | | | | [address] | | + + + + + Care Team Providers + +------+ + | Care General Office Assistant Name | Role | Phone | [...] Procedure Note | + + | Interface, Car Ferrier In - 02/05/2006 12:00 AM PST | | [id number] | | [id number] ANTONIETTAMACK GERMAINE [id number] | | | | Date: 02/05/2006 | | | | Attending Surgeon: Papi Johnson M.D. | | | | Optical Dispenser(s): Darrel Dunn M.D. | | | | [...] | | DS / HS | | [id number] / [id number] / [id number] / [id number] | | | | | | | | | | | | Reviewed or Edited By Darrel Dunn MD on 05-29-2006 | | Electronically signed by Papi Johnson 05-29-2006 11:17:53 AM | | | | | + + + + | Transcriptions | + + | Interface, Car Ferrier In - 02/20/2006 2:34 AM PST | | [id number] | | [id number] ARETHA HERRON [id number] | | | | Date: 02/05/2006 | | | | Attending Surgeon: Herberth Ayala M.D. | | | | Optical Dispenser(s): Darrel Dunn M.D. | | | | [...] attending surgeon for Heller myotomy is Dr. aPpi Johnson M.D. | | | | Anesthesia: [...] | | | RWO / | | [id number] / [id number] / [id number] / [id number] | | | | | | | | | | | | Electronically signed by Herberth Brambila 02-19-2006 11:24:19 AM | + + documented in this encounter Visit Diagnoses Not on filedocumented in this encounter"
--- OUTSIDE RECORDS SUMMARY | ~2018-08-20 | XMS | Encounter Summary ---
Demographics + + + | Address | [address] [place] [address] | | | [place] [address] | + + + | Home Phone [...] + + + | Author | [facility] | + + + | Organization | [facility] | + + + | Address | Unknown | + + + | Phone | Unavailable | + + + Support + + + + + | Name | Relationship | Address | Phone | + + + + + | Hector Mack | ECON | [address] | | | | | [place] | | | | | [address] | | + + + + + Care Team Providers + +------+ + | Care Change Management Analyst Name | Role | Phone | [...] removal) | | | | Surgery at [facility] [address] | | | | | | [place] Kolb Mail | | | | | | Code: [facility] | | | | | | for Health and | | | | | | Healing, 5th Floor | | | | | | [place], [place] | | | | | | [address] | | | | | | [phone] | | | +--------+ + + + [...]
--- OUTSIDE RECORDS SUMMARY | ~2018-08-20 | XMS | Encounter Summary ---
Demographics + + + | Address | [address] [place] [address] | | | [place] [address] | + + + | Home Phone | | + + + | Preferred Language | Unknown | + + + | Marital Status | | + + + | Hoahaoism Affiliation | PRO | + + + | Race | White | + + + | Ethnic Group | Not or | + + + Author + + + | Author | [facility] | + + + | Organization | [facility] | + + + | Address | Unknown | + + + | Phone | Unavailable | + + + Support + + + + + | Name | Relationship | Address | Phone | + + + + + | Hector Mack | ECON | [address] | | | | | [place] | | | | | [address] | | + + + + + Care Team Providers + +------+ + | Care Manager Drug Safety Name | Role | Phone | + +------+ + | Tuan Chan MD | PCP | | + +------+ + Reason for Visit + + + | Reason | Comments | + + + | History and physical | pre op for gastric bypass, | | examination | | + + + | CAD - Coronary | Hx of cabg no CP | | artery disease | | + + + Consultation (Routine) +--------+--------+ + + + + | Status | Reason | Specialty | Diagnoses / | Referred By | Referred To | | | | | Procedures | Contact | Contact | +--------+--------+ + + + + | Closed | | Cardiology | | Alex, | Nora, | | | | | | MD Papi | MD Pranay | | | | | | [address] | [address] | | | | | | [address] | [address] | | | | | | [address] | [place], [place] | | | | | | [place], [place] | [address] | | | | | | [address] | | | | | | | Phone: | | | | | | | [phone] | | | | | | | Fax: | | | | | | | [phone] | | +--------+--------+ + + + + Encounter Details +--------+---------+ + + + | Date | Type | Department | Care Team | Description | +--------+---------+ + + + | 11/20/ | Office | Cardiology - | Pranay Melendez MD | Dysmetabolic | | 2005 | Visit | General [address] [facility] | | Syndrome X; CAD | | | | [facility] [address] | | (Coronary Artery | | | | Mailcode: [id number] | | Disease); Sleep | | | | [facility] | | Apnea; Gout; DM Circ | | | | [address] [place], | | Dis Type II, | | | | [place] [address] | | Uncontrolled ([facility]); | | | | [phone] | | Dyslipidemia | +--------+---------+ + + + Social History [...] + + + | Blood Pressure | 150/90 | 11/20/2005 2:48 PM | | | | | PDT | | + + + + + | Pulse | 80 | 11/20/2005 2:48 PM | | | | | PDT | | + + + + + | Temperature | - | - | | + + + + + | Respiratory Rate | 18 | 11/20/2005 2:48 PM | | | | | PDT | | + + + + + | Oxygen Saturation | - | - | | + + + + + | Inhaled Oxygen | - | - | | | Concentration | | | | + + + + + | Weight | 139.3 kg (307 lb) | 11/20/2005 2:48 PM | | | | | PDT | | + + + + + | Height | - | - | | + + + + + | Body Mass Index | - | - | | + + + + + documented in this encounter Progress Notes Pranay Melendez - 11/21/2005 9:02 AM Martine Mack is a morbidly obese woman with known joss nary artery disease that was treated with coronary artarey bypass five years ago after an ep isode of acute coronary insufficiency. She has weighed as much as 400 pounds and has been ab le to lose to 308 at the present time. Her obesity is also complicated by DM II and sleep ap alonso. She has hypertension and dyslipidemia. At the present time she states she does not experience chest pain. she is able to maintain some physical activity. She has dyspnea on exertion and has intermittent leg edema. She take ws multimple medications as described in the med list. She has arthritis and takes anti-infl ammatory meds to contorl the discomfort. Remainder of ROS is negative. Physical exam GEN: morbidly obese white woman who moves about freely but with some discomfort HEENT: MARISSA, EMOM intact, no icterus or pallor. oral mucosa moist and intact NECK: No masses, bruits, JVD CHEST: NOrmal breath sounds, no murmurs HEART: NOr mal heart tones. No murmurs ABDOMEN: markedly protuberant non-tyender, no masses or organomegaly EXT: no deformity. 3+ edema bilat, no calf tenderness. Shge did have redness and swelling a bout the right great toes compatible with an acute gouty attack. NEURO: non sensory or motor deficit SKIN: erythematous rash under breasts LN: no adenopathy Though she has coronary artery disease and will be at a greater risk for surgery as a resul t of this she is atable and the risk will be manageable. Furthermore, in the assisted weigh t loss will afford cardiovascualr prtection. I did not have access to her lipid values recen alishay and have ordered another set for later this week.Electronically signed by Pranay rojas 11/21/2005 9:07 AM PDTdocumented in this encounter Plan of Treatment Not on filedocumented as of this encounter Results LIPID SET (11/22/2005 7:42 [...] | | | | PATHOLOGY | | | | Desirable: | | | | | | <200 | | | | | | Borderline | | | | | | High: 200 - | | | | | | 239 | | | | | | High: | | | | | | >=240 LDL | | | | | | Cholesterol Reference | | | | | | Range: | | | | | | | | | | | | Optimal: | | | | | | <100 | | | | | | Near | | | | | | Optimal: 100 - | | | | | | 129 | | | | | | Borderline | | | | | | High: 130 - | | | | | | 159 | | | | | | High: | | | | | | 160 - | | | | | | 189 | | | | | | Very High: | | | | | | >=190 | | | | + + + + + + | TRIGLYCERID | 76Comment: | <200 mg/dL | [facility] | | | ES | Triglyceride Reference | | DEPARTMENT | | | | Range: | | OF | | | | Normal | | PATHOLOGY | | | | : | | | | | | <150 | | | | | | Borderline | | | | | | High: 150 - | | | | | | 199 | | | | | | High: | | | | | | 200 - | | | | | | 499 | | | | | | Very High: | | | | | | >=500 | | | | + + + + + + | HDL | 42Comment: | >40 mg/dL | [facility] | | | CHOLESTEROL | HDL Reference | | DEPARTMENT | | | | Range: | | OF | | | | High | | PATHOLOGY | | | | Risk: | | | | | | <40 | | | | | | Desirable: | | [...] | + + + + + | [facility] | [address] | [place] [address] | | | PATHOLOGY | CATY SANCHEZ | | | + + + + + | [facility] | [address] | [place] [address] | | | PATHOLOGY | CATY SANCHEZ | | | + + + + + documented in this encounter Visit Diagnoses + + | Diagnosis | + + | Dysmetabolic syndrome X Dysmetabolic Syndrome X | + + | CAD (coronary artery disease) Coronary atherosclerosis of unspecified type of vessel, | | resighini or graft | + + | Sleep apnea Unspecified sleep apnea | + + | Gout Gout, unspecified | + + | Type II or unspecified type diabetes mellitus with peripheral circulatory disorders, | | uncontrolled(250.72) Type II or unspecified type diabetes mellitus with peripheral | | circulatory disorders, uncontrolled | + + | Dyslipidemia Other and unspecified hyperlipidemia | + + documented in this encounter"
--- OUTSIDE RECORDS SUMMARY | ~2018-08-20 | XMS | Encounter Summary ---
Demographics + + + | Address | [address] | | | [place] [address] | + + + | Home Phone | | + + + | Preferred Language | Unknown | + + + | Marital Status | | + + + | Synagogue Affiliation | PRO | + + + | Race | White | + + + | Ethnic Group | Not or | + + + Author + + + | Author | [facility] | + + + | Organization | [facility] | + + + | Address | Unknown | + + + | Phone | Unavailable | + + + Support + + + + + | Name | Relationship | Address | Phone | + + + + + | eHctor Mack | ECON | [address] | | | | | [place] | | | | | [address] | | + + + + + Care Team Providers + +------+ + | Care Vice President Payer Name | Role | Phone | + [...] Closed | | Plastic | Diagnoses | [place], | Pls | | | | Surgery | Hernia of | Aysha Crow | [facility]etic [facility] | | | | | unspecified | [address] | [address] | | | | | site of | [address] | [address] | | | | | abdominal | [place], [place] | Mail Code: | | | | | cavity | [address] | [facility] | | | | | without | | for Health | | | | | mention of | | and Healing, | | | | | obstruction | | 5th Floor | | | | | or gangrene | | [place], [place] | | | | | | | [address] | | | | | Panniculitis | | Phone: | | | | | Procedures | | [phone] | | | | | REQUEST TO | | | | | | | SURGERY | | | | | | | DISTANCE EDUCATION TEACHER | | | +--------+--------+ + + + [...] Hernia of | Aysha Crow, | [facility] [address] | | | | | unspecified | [address] | [address] | | | | | site of | [address] | [facility] | | | | | abdominal | [place], [place] | Road | | | | | cavity | [address] | Mailcode: | | | | | without | | [address] [facility] | | | | | mention of | | Hospital | | | | | obstruction | | [place], [place] | | | | | or gangrene | | [address] | | | | | Procedures | | Phone: | | | | | CT ABDOMEN | | [phone] | | | | | WWO CONTRAST | | Fax: | | | | | LTD | | [phone] | +--------+--------+ + + + + Reason [...] Panniculitis | | | | Surgery at [facility] [address] | | | | | | [place]ila Kolb Mail | | | | | | Code: [address] | | | | | | for Health and | | | | | | Healing, 5th Floor | | | | | | [place], [place] | | | | | | [address] | | | | | | [phone] | | | +--------+---------+ + + + [...] | | | | left kidney and | | | | | | pancreas are | | | | | | unremarkable. Asplenu | | | | | | le is noted adjacent to | | | | | | the descending colon. | | | | | | The gallbladderis not | | | | | | visualized, and may be | | | | | | collapsed or surgically | | | | | | absent.Multiple small | | | | | | calcifications are noted | | | | | | within the right | | | | | | renalcalices. There | | | | | | is mild to moderate | | | | [...] | | | | | bladder is | | | | | | collapsed. The uterus | | | | | | is unremarkable in | | | | | | appearance.The right | | | | | | ovary not | | | | | | identified. A 1.4 cm | | | | | | calcification in the | | | | | | pelvisis difficult to | | | | | | definitively localize, | | | | | | but likely represents | | | | | | anenterolith.There is | | | | | | anterior abdominal wall | | | | | | stranding. A 4.0 x | | | | | | 1.1 x 12.9 cm(cc by AP | | | | | | by TR) rim enhancing | | | | | | fluid collection is seen | | | | | | in theanterior | | | | | | abdominal wall. There is | | | | | | no internal gas to | | | | | | confirm abscess. No | | | | | | ventral abdominal hernia | | | | | | is seen, however there | | | | | | is a smallright-sided | | | | | | [...] | | | | ventral hernia is | | | | | | seen. There is a | | | | | | small right | | | | | [...] | | | | | excluded on | | | | | | CT. Clinicalcorrelati | | | | | | on is suggested.I have | | | | | [...] | + +---------+ + + | [facility] DEPARTMENT OF | | | | [...]
--- OUTSIDE RECORDS SUMMARY | ~2018-08-20 | XMS | Encounter Summary ---
Demographics + + + | Address | [address] | | | [place] [address] | + + + | Home Phone | | + + + | Preferred Language | Unknown | + + + | Marital Status | | + + + | Baptist Affiliation | PRO | + + + | Race | White | + + + | Ethnic Group | Not or | + + + Author + + + | Author | [facility] | + + + | Organization | [facility] | + + + | Address | Unknown | + + + | Phone | Unavailable | + + + Support + + + + + | Name | Relationship | Address | Phone | + + + + + | Hector Mack | ECON | [address] | | | | | [place] | | | | | [address] | | + + + + + Care Team Providers + +------+ + | Care Demo Coordinator Name | Role | Phone | [...] | Tuan Anglin MD | [facility] [address] | | | | | [address]AST | [address] | [address] | | | | | [address] | [address] | | | | | | [address] | Road | | | | | | [place], [place] | Mailcode: | | | | | | [address] | [address] [facility] | | | | | | | [facility] | | | | | | | [place], [place] | | | | | | | [address] | | | | | | | Phone: | | | | | | | [phone] | | | | | | | Fax: | | | | | | | [phone] | +--------+--------+ + + + + Diagnostic [...] | Tuan Anglin MD | [facility] [address] | | | | | WO CONTRAST | [address] | [address] | | | | | | [address] | [address] | | | | | | [address] | [facility] | | | | | | [place], [place] | Mailcode: | | | | | | [address] | [address] [facility] | | | | | | | [facility] | | | | | | | [place], [place] | | | | | | | [address] | | | | | | | Phone: | | | | | | | [phone] | | | | | | | Fax: | | | | | | | [phone] | +--------+--------+ + + + + Diagnostic [...] CTA | Socorro Genao MD | [address] | | | | | HEAD WITH | [address] | | | | CONTRAST | [address] | [address] | | | | | | [address] | Road | | | | | | [place] | Mailcode: | | | | | | [address] | [address] [facility] | | | | | | Phone: | Hospital | | | | | | [phone] | [place], [place] | | | | | | Fax: | [address] | | | | | | [phone] | Phone: | | | | | | | [phone] | | | | | | | Fax: | | | | | | | [phone] | +--------+--------+ + + + + Diagnostic [...] CTA | Socorro Genao MD | [address] | | | | | HEAD WITH | [address] | | | | CONTRAST | [address] | [address] | | | | | | [address] | Road | | | | | | [place] | Mailcode: | | | | | | [address] | [address] [facility] | | | | | | Phone: | [facility] | | | | | | [phone] | [place], [place] | | | | | | Fax: | [address] | | | | | | [phone] | Phone: | | | | | | | [phone] | | | | | | | Fax: | | | | | | | [phone] | +--------+--------+ + + + + Diagnostic [...] MRI BRAIN | Raman Barrett, | [address] | | | W[address] CONTRAST | [address] | [address] | | | | | | [address] | [facility] | | | | | | [facility] | Mailcode: | | | | | | [place], [place] | [address] | | | | | | [address] | [place] | | | | | | Phone: | Research | | | | | | [phone] [facility] | | | | | | Fax: | [place], [place] | | | | | | [phone] | [address] | | | | | | | Phone: | | | | | | | [phone] | | | | | | | Fax: | | | | | | | [phone] | +--------+--------+ + + + + Diagnostic Testing (Routine) +--------+--------+ + + + + | Status | Reason | Specialty | Diagnoses / | Referred By | Referred To | | | | | Procedures | Contact | Contact | +--------+--------+ + + + + | Closed | | Radiology | Procedures | Rachael | Rad Mri Hrc | | | | | MRI BRAIN | Raman Barrett, | [address] | | | | W[address] CONTRAST | [address] | [address] | | | | | | [address] | [facility] | | | | | | [facility] | Mailcode: | | | | | | [place], [place] | [address] | | | | | | [address] | [place] | | | | | | Phone: | Research | | | | | | [phone] | [place] | | | | | | Fax: | [place], [place] | | | | | | [phone] | [address] | | | | | | | Phone: | | | | | | | [phone] | | | | | | | Fax: | | | | | | | [phone] | +--------+--------+ + + + + Reason [...] + + | 04/21/ | Hospital | [facility] [address] | Bryan Adams MD | | | 2013 - | Encounter | [address] | [address] | | | | | [address]4/[id number] MIMA | Scotty Nolasco | | | 04/24/ | | RAIM[place], | [place] [address] | | | 2012 | | [place] [address] | [phone] | | | | | [phone] | | | | | | | Chaim Vizcarra MD | | | | | | [address] | | | | | | [address] [place], | | | | | | [place] [address] | | | | | | [phone] | | | | | | | [...] her left fingertips and left toes, w tannerh progressively travelled up her legs and arms, [...] fracture, and she was subsequently transferred to [facility] for escalation of care. On comparison [...] Derm follow-up closer to her home in [place]. Medications: Discharge Medication List as of 04/24/2012 [...] Attending Physician: MD Tuan Sethi MD Neurology Adult High School Instructor Pager [phone] I saw and evaluated the patient. I agree with the findings and the plan of care as yesika lares in the resident s note. Halley Noriega MD Booking Clerk Department of Neurology [facility] DEPARTMENT: Neurology Attending - [id number] Place of Service: [facility] Date of Service: 04/24/2012 CSN: [id number] Suggestive Modifier: GC - Resident Present Suggested CPT: 59616 - Discharge Day mgmt up to 30 [...] 1-2 Tabs by | | 0 | /25/20 | | | mg Oral tablet | [...] affected | 15 g | 0 | 01/25/20 | | | acetonide 0.1 % | [...] to re-consult, any questions. DANIELLE WYNN PA-C [facility] [address] [address] [place] [address] hPetrona ayala PA - 04/23/2012 10:44 AM PSTFormatting of this note might be different from the [facility]. NEUROSURGERY DAILY PROGRESS NOTE Author: DANIELLE WYNN [...] HCT 35.4* 03/13/2011 7:46 AM HCT See cmnt 03/11/2011 5:13 PM WBC 6.8 04/23/2012 7:45 AM WBC 6.4 03/13/2011 7:46 AM WBC See cmnt 03/11/2011 5:13 PM PLT 209 04/23/2012 7:45 AM PLT 217 03/13/2011 7:46 AM PLT See [facility] 03/11/2011 5:13 PM CULTURE RESULT (no units) Date Value 03/11/2011 Urine Culture Source...............: Voided Urine sensitivities Culture: Multiple organisms are present indicating probable contamination or colonization not related to infection. Further work-up of these organisms may re sult in clinically misleading information due to the low numbers and/or mixture of organisms present. Recollection is suggested if clinically indicated. Final Rep ort Resulted: 03/13/11 [facility] ([facility]) [facility] [address] [place] [address] STUDY: SPINE CERVICAL 2 VWS FLEX/EXT 04/22/12 [...] otherw ise intact. 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 FABIO JACOBSEN-Matty [facility] [address] [address] [place] [address] Halley Haddad MD - 04/23/2012 8:37 AM [...] scleral icterus, conjunctiva pink. Mouth: Moist mucus membranesCardiovascular: RRR Respiratory: Breathing comfortably Skin: Widespread flat-topped [...] Attending Radiologists: Joseph Hale MD Assessment: Germaine ArteagaDennisFrederick is a 66 y.o. Female w h/o [...] Hari, attending physician, who agrees with the [facility] assessment and plan. VERA COOK MD,MPH Neurology Resident [id number] I performed a history and physical examination [...] it requires holding plavix. Halley Noriega MD Booking Clerk Department of Neurology [facility]IC DEPARTMENT: Neurology Attending - [phone] Place of Service: - Date of Service: 04/22/2013 CSN: [id number] Suggestive Modifier: None Suggested CPT: 87735 - Initial Visit, Level 2 Suggested Diagnosis: Multiple cranial neuropathies ridgesSocorro MD - 04/22/2012 11:03 AM PSTExcellent medical student note. Please reference resident and attend ing notes for additional/further details. SOCORRO JARRELL MD Neurological Surgery, PGY-2 ormanegurpreetCedric - 0 04/22/2012 11:03 AM PST Medical [...] and face w eakness and referred to [facility] for possible cervical fracture. MRI suggests [...] Socorro Galdamez MD - 04/22/2012 7:51 AM PST NEUROSURGERY PROGRESS NOTE Author: SOCORRO JARRELL MD [...] Tongue midline Trace left pronator drift Slowed xtxpsm-ik-cnfn movements with mild end-point dysmetria 5/5 bilateral [...] Downs MD - 04/22/2012 7:47 AM PST [facility] Progress Note Team Pager: [phone] Attendin Attending Survey Supervisor: Primary Service Attending: MD Bryan Espinosa MD [...] 84.5 kg (186 lb 4.6 oz) (04/21/12 7695) Today s weight: Not on file. Date 04/21/12 07 - 04/22/12 0659 04/22/12 07 - 04/23/12 0659 Shift [phone] 6112-0098 Daily Total 9689-6923 9028-6564 6438-8251 Daily Total I N T A K [...] plan. Viktoriya Downs MD PGY2 Neurology Pager [phone] documented in t his encounter Plan of [...] [facility] | [address] | [place], [place] | | | MARLEEN NESBITT OF CARE | [address] | [address] | | | TESTS | | | [...] [facility] | [address] | [place] [address] | | | SERVICES, CORE | PARK [...] [facility] | [address] | [place] [address] | | | SERVICES, CORE | MARY [...] Venous Thromboembolism (2.0 - 3.0) INR INR | LABORATORY | | for most patients with mech. valves (2.5 - 3.5) INR | [facility]RE[facility] | + + + + + + + + | Performing | Address | City/State/Zipcode | Phone Number | | Organization | | | | + + + + + | [facility] | [address] | [place] [address] | | | SERVICES, BLU | MARY [...] + + | [facility] | [address] [facility] | [place], [place] | | | [facility] | [facility] | [address] | | | TESTS | | | [...] is consulted for a rash on her | | | trunk. Patient states that rash has been present on her upper | | | back and chest for about one month. The rash is described as | | | scaly and itchy. She has not been using anything topically on the | | | area. Her PCP put her on a course of oral antibiotics which did | | | not help. No close contacts with a similar dermatitis. No | | | recent medications. She mentions that she was seen by [facility] | | | dermatology in 2008 with a rash. 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 The patient was seen and examined with | | | the attending physician. We discussed the recommendations listed | | | above. Trevor Sosa M.D. Resident, Department of | | | Dermatology [facility] Attending | | | Physician Attestation I personally interviewed, examined the patient, | | | and discussed management with the resident. I reviewed and | | | edited the resident's note and agree with the documented findings | | | and plan of care. Khoa Manuel MD, PhD Serology Technician | | | Professor, Department of Dermatology [facility] | | | [facility] DEPARTMENT: [id number] - [facility] Place of | | | Service:- Inpatient Date of Service: 04/23/2012 MEDICAL RECORD | | | NUMBER [id number] CSN: [id number] Suggested Modifier: CARLOS Resident | | | Involved: GC Resident Involved Suggested CPT: 51573 - Initial, | | | Detailed; Low complex 30 min | | + + [...] medications.She mentions that she was seen by [facility] | | dermatology in 2008 with [...] of Education: N/A Occupational History | | [employer] Social History Main Topics | | Smoking [...] | Packet, 1 Packet, Oral, DAILY PRN, Martha Sanches gum (aka BENEFIBER) oral | | powder [...] | follow-up closer to her home in [place]; would f/u with a wire preparation worker there if not | | improved on topicalsPlease contact us with further questions. The patient was seen and | | examined with the attending physician. We discussed the recommendations listed | | above.Trevor Sosa M.D.Resident, [facility] | | [place] Attending Physician AttestationI personally interviewed, examined the | | patient, and discussed management with the resident. I reviewed and edited the | | resident's note and agree with the documented findings and plan of care. Khoa Lee | | MD Kaleb, PhDAssistant Professor, [facility] | | [facility]: [id number] [facility]- Inpatient Date | | of Service: 04/23/2012 : [id number] Modifier: | | GC Resident Involved: GC Resident InvolvedSuggested CPT: 41043 - Initial, Detailed; Low | | complex [...] to follow-up closer to her home in [place]; would f/u with a wire preparation worker there if not improved on topicals | | | |Please contact us with further questions. The patient was seen and examined with the attend ing physician. We discussed the recommendations listed above. | | | | | |Trevor Sosa M.D. | |Resident, Department of Dermatology | |[facility] | | | |Attending Physician Attestation | |I personally interviewed, examined the patient, and discussed management with the resident. I reviewed and edited the resident's note and agree with the documented findings and plan of care. | | | | | |Khoa Manuel MD, PhD | |Booking Clerk, Department of Dermatology | |[facility] | | | |[facility] DEPARTMENT: [id number] [facility] | |Place of Service:62145- Inpatient | |Date of Service: 04/23/2012 | | | |CSN: [id number] | |Suggested Modifier: GC Resident Involved: GC Resident Involved | |Suggested CPT: 15332 - Initial, Detailed; Low complex 30 min [...] [facility] | [address] | [place], [place] | | | MARLEEN NESBITT OF CARE | [address] | [address] | | | TESTS | | | [...] | | | | | | 03/12/11 | | | | | | TECHNIQUE: Overla | | | | | | pping 3-mm thick helical | | | | | | images were | | | | | | obtainedthru the chest. | | | | | | No intravenous contrast | | | | | | was | | | | | | administered. Coronal | | | | | | MPR reformations were | | | | | [...] | | | | | | axillary | | | | | | adenopathy. Nocalcifi | | | | | | ed mediastinal lymph | | | | | | nodes. No pericardial | | | | | | or | | | | | | [...] Milagros | | | | | | Fusalyssa 04/24/2012 9:53 AM | | | | [...] + | [facility] - AIRPORT - | [address] | [place] [address] | | | [place] | | | [...] + | [facility] - | [address] | [place] [address] | | | [place] | | | [...] | + + + + + | [facility] - | [address] | [place] [address] | | | [place] | | | [...] | [facility] | [address] | [place], [place] | | | MARLEEN NESBITT OF LANCE | [facility] | [address] | | | TESTS | | | | + + + + + ANTI-DS DNA (CRITHIDIA), SERUM (04/23/2012 11:20 AM PST) + + [...] + | [facility] - | [address] | [place] [address] | | | [place] | | | [...] | prevalent in the general | | [place] | | | | population, and in [...] + | [facility] - | [address] | [place] [address] | | | [place] | | | [...] SERUM | Severe deficiency. If | | [facility] | | | | supplementation does not | | [place] | | | | correct consider | | | | | | furt | | | | | | her testing B12 <300: | | | | | | Deficiency likely. If | | | | | | supplementation does not | | | | | | correct, consider | | | | | | furt | | | | | | her testing B12 <400: | | | | | | Supplementation may be | | | | | | considered if | | | | | | [id number] >400: | | | | | | [...] | + + + + + | [facility] - AIRPORT - | [address] | [place] [address] | | | [facility] | | | | + + + [...] | | | | | Antibody to | | | | | | Borrelia | | | | | | | | | | | | burgdorferi | | | | | | not detected. 1.00 - | | | | | | 1.20 MAKAYLA......... | | | | | | Equivocal: Repeat | | | | | | testing | | | | | | in | | | | | | | | | | | | 10-14 days may be | | | | | | helpful. 1.21 MAKAYLA or | | | | | | Greater: ... Positive: | | | | | | Probable presence | | | | | | of | | | | | | | | | | | | antibody to | | | | | | Borrelia | | | | | | | | | | | | burgdorferi | | | | | | detected.Performed by | | | | | | [facility] | | | | | | [place] | | | | | | [address] | | | | | | [phone].[employer]. | | | | | | Alma [...] [facility] | [address] | [place], [place] | | | [facility] | | [address] | | + + + + + [...] + | [facility] - | [address] | [place] [address] | | | [place] | | | [...] + | [facility] - | [address] | [place] [address] | | | [facility] | | | | + + + [...] + | [facility] - | [address] | [place] [address] | | | [place] | | | | + + + [...] [facility] | [address] | [place] [address] | | | SERVICES, CORE | PARK [...] + + + + + + | MARKETING PRODUCTION COORDINATOR AB | Negative | Negative | [facility] [...] | + + + | Test Unit | [facility] | | Negative Equivocal Positive Abraham [facility]re | LABORATORY | | AB U/ml <7.0 7.0-10 >10 Abraham | SERVICES, | | Nupur-1 AB U/ml | SPECIAL IMM + | | <7.0 7.0-10 >10 Abraham MARKETING PRODUCTION COORDINATOR AB | COAG | | U/ml <5.0 5.0-10 >10 Abraham | | | Scl-70 U/ml | | | <7.0 7.0-10 >10 Abraham Sm | | | AB U/ml | | | <5.0 5.0-10 >10 Abraham SSA AB | | | U/ml <7.0 7.0-10 >10 Abraham SSB | | | AB U/ml | | | <7.0 7.0-10 >10 Test methodology and | | | reference ranges have changed. Correlate test interpretation with | | | clinical symptoms. | | + + + + + + + + | Performing | Address | City/State/Zipcode | Phone Number | | Organization | | | | + + + + + | [facility] | [address] | [place] [address] | | | SERVICES, SPECIAL | PARK [...] [facility] | [address] | [place] [address] | | | SERVICES, SPECIAL | PARK [...] [facility] | [address] | [place] [address] | | | SERVICES, CORE | PARK [...] | + + + + + | [facility] | [address] | [place] [address] | | | SERVICES, CORE | MARY [...] Venous Thromboembolism (2.0 - 3.0) INR INR | LABORATORY | | for most patients with mech. valves (2.5 - 3.5) INR | SERVICES, CORE | + + + + + + + + | Performing | Address | City/State/Zipcode | Phone Number | | Organization | | | | + + + + + | [facility] | [address] | [place] [address] | | | SERVICES, CORE | MARY [...] | | | | | | denominator. | | | | | | FINDINGS: Aortic | | | | | | arch: No evidence of | | | | | | aneurysm. No | | | | | | significant stenosis | | | | | | orocclusion of major | | | | | | arch vessels. Left | | | | | | carotid system: Calcific | | | | | | atherosclerosis | | | | | | involves the carotidbulb | | | | | | without stenosis. No | | | | | | evidence of aneurysm, | | | | | | significant stenosis,or | | | | | | occlusion. Right | | | | | | carotid system: Calcific | | | | | | atherosclerosis | | | | | | involves the carotidbulb | | | | | | without stenosis. No | | | | | | evidence of aneurysm, | | | | | [...] | | | | Contrast: No areas | | | | | | of abnormal enhancement. | | | | | [...] | | | | | | thyroid | | | | | | lobe. Multiple | | | | | [...] | | | | | | patent. | | | | | | IMPRESSION:1. No | | | | | | evidence of significant | | | | | | stenosis or occlusion | | | | | | involving | | | | | | theintracranial and | | | | | | cervical | | | | | | arteries.2. Masslike | | | | | | enlargement with | | | | | | heterogeneous density | | | | | | involving theright | | | | | | thyroid | | | | | | lobe. Additional | | | | | | imaging with thyroid | | | | | | ultrasound | | | | | | isrecommended.3. 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 Attending | | | | | | Radiologists: oJseph Woodard | | | | | | [...] | | + +---------+ + + | [facility] DEPARTMENT OF | | | | | [...] | | | | | | denominator. | | | | | | FINDINGS: Aortic | | | | | | arch: No evidence of | | | | | | aneurysm. No | | | | | | significant stenosis | | | | | | orocclusion of major | | | | | | arch vessels. Left | | | | | | carotid system: Calcific | | | | | | atherosclerosis | | | | | | involves the carotidbulb | | | | | | without stenosis. No | | | | | | evidence of aneurysm, | | | | | | significant stenosis,or | | | | | | occlusion. Right | | | | | | carotid system: Calcific | | | | | | atherosclerosis | | | | | | involves the carotidbulb | | | | | | without stenosis. No | | | | | | evidence of aneurysm, | | | | | [...] | | | | Contrast: No areas | | | | | | of abnormal enhancement. | | | | | [...] | | | | | | thyroid | | | | | | lobe. Multiple | | | | | [...] | | | | | | patent. | | | | | | IMPRESSION:1. No | | | | | | evidence of significant | | | | | | stenosis or occlusion | | | | | | involving | | | | | | theintracranial and | | | | | | cervical | | | | | | arteries.2. Masslike | | | | | | enlargement with | | | | | | heterogeneous density | | | | | | involving theright | | | | | | thyroid | | | | | | lobe. Additional | | | | | | imaging with thyroid | | | | | | ultrasound | | | | | | isrecommended.3. 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 | [place], [place] | | | MARLEEN NESBITT OF LANCE | [address] | [address] | | | TESTS | | | [...] | | | | | | FINDINGS: Skull/Marro | | | | | | w/Soft tissues: | | | | | | Unremarkable Orbits/O | | | | | | ptic nerves: | | | | | | Normal Sinuses: | | | | | | Clear Brain: No | | | | | | significant cerebral | | | | | | abnormality. Specific | | | | | | ally, noevidence of | | | | | | hydrocephalus, neoplasm, | | | | | | infectious/inflammatory | | | | | | process,acute | | | | | | infarction, vascular | | | | | | lesion, or congenital | | | | | | abnormality. Patchyce | | | | | | rebral white matter and | | | | | | pontine T2/flair | | | | | | hyperintensity | | | | | | isnonspecific but | | | | | | generally ascribed to | | | | | | sequelae of | | | | | | chronicmicrovascular | | | | | | ischemia. Enhancement | | | | | | : No abnormal | | | | | | enhancement. Addition | | | | | | al Comments: None | | | | | | IMPRESSION: No acute | | | | | | intracranial | | | | | | [...] (H) | 60 - 99 mg/dL | [facility] - | | | GLUCOSE, | [...] [facility] | [address] | [place], [place] | | | MARLEEN NESBITT OF [facility] | [facility] | [address] | | | TESTS | | | [...] | | | | | | lytic/blastic | | | | | | lesion. A | | | | | | transversely | | | | | | [...] | | | CT dating back to | | | | | | 2009. Alignment is | | | | | | within normallimits on | | | | | | the extension | | | | | | view. There is 2 mm | | | | | | anterolisthesis of C2 | | | | | | onC3 and C4 on C5 on | | | | | | flexion view | | | | | | only. Alignment is | | | | | [...] | | | | | C5/C6. Mild | | | | | | multilevel facet | | | | | | arthropathy is | | | | | | alsopresent. Preverte | | | | | | bral soft tissues are | | | | | | within normal limits | | | | | [...] back | | | | | | [id number]. Attending | | | | | | [...] | | + +---------+ + + | [facility] DEPARTMENT OF | | | | [...] + + + | [facility] | [address] | [place], [place] | | | MARLEEN NESBITT OF [facility] | [address] | [address] | | | TESTS | | | [...] + | [facility] | [address] | [place] [address] | | | SERVICES, BLU | MARY [...] | + + + + + | [facility] | [address] | [place] [address] | | | SERVICES, CORE | MARY [...] | AIRPORT - | | | | Fin | | [place] | | | | al CULTURE | | | | | | RESULT:Multiple | | | | | | [...] | + + + + + | [facility] - | [address] | [place] [address] | | | [place] | | | [...] + + | [facility] | [address] | [place] [address] | | | SERVICES, CORE | MARY [...] (H) | 60 - 99 mg/dL | AMY - | | | GLUCOSE, | | [...] [facility] | [address] | [place], [place] | | | DELICIA POINT OF CARE | [address] | [address] | | | TESTS | | | [...] [facility] | [address] | [place] [address] | | | SERVICES, CORE | PARK [...] | + + + + + | [facility] | [address] | [place] [address] | | | SERVICES, | [address] [...] | + + + + + | [facility] | [address] | [place] [address] | | | SERVICES, | [address] [...] 1.00 | 0.90 - 1.20 INR | [facility] | | | | | | LABORATORY [...] Venous Thromboembolism (2.0 - 3.0) INR INR | LABORATORY | | for most patients with mech. valves (2.5 - 3.5) INR | SERVICES, CORE | + + + + + + + + | Performing | Address | City/State/Zipcode | Phone Number | | Organization | | | | + + + + + | [facility] | [address] | [place] [address] | | | SERVICES, CORE | PARK [...] LABORATORY | | | | | | [place], | | | | | | CORE | | + +-------+ + + + + + | Specimen | + + | Blood - Blood | + + + + + + + | Performing | Address | City/State/Zipcode | Phone Number | | Organization | | | | + + + + + | [facility] | [address] | [place] [address] | | | SERVICES, CORE | PARK [...] + + + + + | [facility] | [address] | [place] [address] | | | SERVICES, CORE | PARK [...] | | | | at 2200, Until Fri04/22/12 at | | | | | [...] | | +-------+ +-------+---+---+ | Given | 01/24/20 | 10 mg | | | | [...] +---+---+ + +-------+ + +---+---+ | senna-docusate (akmirella Cleaning) | Given | 04/24/19 | 1 tablet [...]
--- OUTSIDE RECORDS SUMMARY | ~2018-08-20 | XMS | Encounter Summary ---
Demographics + + + | Address | [address] | | | [place] [address] | + + + | Home Phone [...] [place] | | | | | [address] | | + + + + + Care Team Providers + +------+ + | Care Administrative Underwriter Name | Role | Phone | + [...] | | | | | [address] | | | | | | | [address] | | | | | | | [id number] | | | | | | | [facility] | | | | | | | [place], | | | | | | | [place] [address] | | | | | | | Phone: | | | | | | | [phone] | | | | | | | Fax: | | | | | | | [phone] | +--------+--------+ + + + + Encounter Details +--------+ + + + + | Date | Type | Department | Care Team | Description | +--------+ + + + + | 05/10/ | Hospital | [facility] [address] | Aysha Blackburn | | | 2008 - | Encounter | ELOY Crow MD | | | | | [id number] [address]IMA | | | | 05/11/ | | MONICA Thrasher | | | | 2008 | | [place] [address] | | | +--------+ + + + [...] from PACU to the wards [facility] On POD#1, the patient was ambulating, [...] PROVIDER DISCHARGE AND INTERDISCIPLINARY INSTRUCTIONS Discharge Date: 05/11/08 Service: Plastic Surgery Principal Final Diagnosis: Panniculitis [...] clinic a ppointment Call: Plastic surgery resident bottle house quality control technician at If you have any of the [...] Aysha Blackburn MD, 1 week, please call [phone] for appointment Follow Up Tests: (Tests at [facility] must be entered into [facility]) None Condition On Discharge: Good Vital Signs [...] Discharged Via: Wheelchair Mode of Transportation: Other: [employer] Accompanied by: Staff Transport Company Name: (when applicable) [employer] Phone #: Discharge Nurse: PASQUALE MEYERS RN [...] ambulating -d/c home Lizbet Lassiter MD, PGY-1 Lizz Collado - 05/11/2008 6:13 AM PSTFormatting of this [...] Intake/Output Summary (Last 24 hours) at 05/11 612 Last data filed at 05/11 0400 Gross [...] in 1 week for drain removal Lizz Soto MS4 [address] [place] [address] Kassandra Herman - 05/01 12:00 AM Germaine Garnett [id number] [facility] REC NUMBER: [id number] NAME : Germaine Heard DATE : 1945 Admit Date: 05/10/2008 Discharge Date: 05/11/2008 PHYSICIAN'S REQUEST FOR HOME HEALTH SERVICES Relevant History: Location to receive services if other than home: Allergies: Height: Weight: Ordering Physician: [address] [place] [address] Physician to follow for ongoing home health orders: PCP Name: PCP Phone: Discharge Need(s): 1. Transportation Discharge Vendor: Medicaid - [place] Discharge Suggested First Visit/Delivery Date: Discharge Service/Equipment: Gusset Ripper: Oralia Wang documented in this encounter Plan [...] + + + + | PRODUCT | [id number] | | [facility] | | | UNIT [...] | + + + + + | [facility] DEPARTMENT OF | [address] | [place] [address] | | | PATHOLOGY | [address] | | | + + + + + | [facility] DEPARTMENT OF | [address] [facility] | [place] [address] | | | PATHOLOGY | [address] [...] + + + + | PRODUCT | [id number] | | [facility] | | | UNIT [...] | [facility] | [facility] | [place] [address] | | | PATHOLOGY | [address] | | | + + + + + | [facility] DEPARTMENT OF | [facility] | [place] [address] | | | PATHOLOGY | [address] | | | + + + + + OPERATION RECORD (05/10/2008 12:00 AM PST) + + + | Narrative | Performed At | + + + | [id number] | | | [id number] | | | [id number] ARETHA | | | GERMAINE [id number] | | | Date: 05/10/2008 Attending | | | Surgeon: Aysha Blackburn MD | | | Snag Grinder(s): Lang | | | Chey Pisano Preoperative Diagnosis(es): Panniculitis. | | | Postoperative Diagnosis(es): Panniculitis. Procedure | | | Performed: Paniculectomy. Anesthesia: General endotracheal. | | | Complications: None. Indications: Ms. Jenni Mack is | | | a 62-year-old woman who has undergone massive weight loss and has | | | developed panniculitis underneath her pannus which hangs down to | | | almost her knees. She was seen and evaluated in the clinic where | | | a panniculectomy was recommended. Prior to the procedure, | | | informed consent was obtained with specific risks discussed | | | included bleeding, infection, hematoma, seroma, scarring, pain, | | | numbness, and a high rate of infection for panniculectomy | | | operations. All questions were answered prior to the procedure. | | | Procedure in Detail: The patient was marked in the standing | | | position in the PACU. Skin incisions were planned so that the lower | | | incision fell just above the groin crease. The upper incision was | | | determined by pinching the excess skin hanging down as an apron. | | | This put the upper incision just superior to where the umbilicus had | | | been. The patient was then taken to the operating room and placed | | | in the supine position. Anesthesia was then induced. We began the | | | procedure by starting with the lower abdominal incision. This was | | | taken down through the subcutaneous fat to the anterior abdominal | | | wall. We then proceeded to elevate the skin off the abdominal wall | | | to the superior incision line. We then pulled the skin down to | | | ensure that we could achieve closure, and this was easily obtained. | | | The superior incision was then made down to the level of the fascia, | | | and the pannus was passed off the table. It weighed 5 pounds. The | | | abdomen was then irrigated, and hemostasis was ensured. We then | | | placed two 19-Swiss Ruel drains in the subcutaneous plane. The | | | skin was then closed with 2-0 Polysorb interrupted suture in | | | Karyn's fascia, 3-0 Biosyn dermal stitches in the dermis, and | | | leonila for skin closure. The abdomen was cleaned and wiped dry. | | | Bacitracin ointment was placed on the incision and a sterile island | | | dressing placed over the incision. The patient tolerated the | | | procedure well, and there were no complications. At the end of the | | | procedure, all sponge, needle, and instrument counts were correct. | | | The patient was transported to the recovery room in stable condition | | | following the procedure. I was present and scrubbed for the entire | | | case. MD LORIE Schaeffer / | | | [id number] / [id number] / [id number] / | | | | | + + + + + | Procedure Note | + + | Aysha Blackburn MD - 05/10/2008 12:00 AM [facility] [id number] | | [id number] ARETHA RAE | | [id number] Date: 05/10/2008 Attending Surgeon: | | Aysha Blackburn MD Snag Grinder(s): Lang Pisano M.D. | | Preoperative Diagnosis(es):Panniculitis. Postoperative Diagnosis(es):Panniculitis. | | Procedure Performed:Paniculectomy. Anesthesia:General endotracheal. | | Complications:None. Indications:Ms. Jenni Mack is a 62-year-old woman who has | [...] ensured. We then | | placed two 19-Swiss Ruel drains in the subcutaneous plane. The [...] Crow | | MD LORIE Blackburn / [id number] / [id number] / [id number] / T: 05/12/2008 | | | | | |Indications: | |Ms. Jenni Mack is a 62-year-old woman who has undergone [...] w as ensured. We then placed two 19-Swiss Ruel drains in the subcutaneous plane. The [...] Blackburn MD | | | | | |JAM / HS | |[id number] / [id number] / [id number] / | | | | | | | | | | | | | | | | | | | | | + + ANESTHESIA/SEDATION (05/10/2008 12:00 AM PST) + + + | Narrative | Performed At | + + + | | | + + + + + | Procedure Note | + + | Freddie, Faculty - 05/10/2008 12:00 AM PST | [...] DAILY, First dose on Fri | | 9:00 | | | | | 05/10/08 [...] injection 1 dose, Starting Fri | | 11:00 | | | | | 05/10/08 [...] + +---------+ +------+--------+---+ | morphine 5 mg/mL STAKES PLAYER infusion | New Bag | 05/10/19 | [...] mg 30 mg, oral, TWICE | | 9:00 | | | | | DAILY, [...]
--- OUTSIDE RECORDS SUMMARY | ~2018-08-20 | XMS | Encounter Summary ---
Demographics + + + | Address | [address] | | | [place] [address] | + + + | Home Phone [...] + + + | Author | [facility] | + + + | Organization | [facility] | + + + | Address | Unknown | + + + | Phone | Unavailable | + + + Support + + + + + | Name | Relationship | Address | Phone | + + + + + | Hector Mack | ECON | [address] | | | | | [place] | | | | | [address] | | + + + + + Care Team Providers + +------+ + | Care Client Support Coordinator Name | Role | Phone | + +------+ + | Tuan Chan MD | PCP | | + +------+ + Encounter Details +--------+ + + + + | Date | Type | Department | Care Team | Description | +--------+ + + + + | 06/25/ | Ancillary | Registration [id number] | Wes Wolff MD | | | 2005 | Registratio | [address] | [address] | | | | n | [facility] Mailcode: | [place], [place] | | | | | [id number] [place], [place] | [address] | | | | | [address] | [phone] | | | | | [phone] | | | +--------+ + + + [...] + | [facility] | [address] | [place] [address] | | | PATHOLOGY | [address] | | | + + + + + | [facility] DEPARTMENT | [address] | [place] [address] | | | PATHOLOGY | [address] [...] | 0.90 - 1.20 INR | [facility] | | | | PT INR | | DEPARTMENT | | | | Therapeutic ranges for | | OF | | | | full | | PATHOLOGY | | | | anticoagulation: | | | | | | INR for | | | | | | Venous | | | | | | Thromboembolism | | | | | | | | | | | | (2.0-3.0)INR | | | | | | INR for most | | | | | | patients with mech. | | | | | | valves (2.5-3.5)I | | | | | | NR | | | | + + + + + + + + | Specimen | + + | | + + + + + + + | Performing | Address | City/State/Zipcode | Phone Number | | Organization | | | | + + + + + | [facility] | [facility] | [place] [address] | | | PATHOLOGY | [address] | | | + + + + + | [facility] | [address] [facility] | [place] [address] | | | PATHOLOGY | [address] [...] Performed At | + + + | [id number] Estimated GFR > 60 mL/min/1.73 sq m if non- | [facility] | | [id number] Estimated GFR > 60 mL/min/1.73 sq m if GFR | DEPARTMENT OF | | is estimated using the MDRD equation recommended by the National | PATHOLOGY | | Kidney Disease Education Program. Estimated GFR Interpretive | | | Information: <60 mL/min/1.73 sq m Chronic Kidney Disease | | | <15 mL/mon/1.73 sq m Kidney Failure Estimated GFR greater | | | than 60mL/min/1.73 is of limited clinical Value. The MDRD equation | | | is not valid in the following situations: - Patients under 18 years | | | of age - Severe malnutrition or obesity - Vegetarian diet - | | | Rapidly changing kidney function | | + + + + + + + + | Performing | Address | City/State/Zipcode | Phone Number | | Organization | | | | + + + + + | [facility] DEPARTMENT | [address] [place] [address] | [place] [address] | | | PATHOLOGY | [address] | | | + + + + + | [facility] | [address] [facility] | [place] [address] | | | PATHOLOGY | [address] | | | + + + + + documented in this encounter Visit Diagnoses Not on filedocumented in this encounter"
--- OUTSIDE RECORDS SUMMARY | ~2018-08-20 | XMS | Encounter Summary ---
Demographics + + + | Address | [address] | | | [place] [address] | + + + | Home Phone [...] [place] | | | | | [address] | | + + + + + Care Team Providers + +------+ + | Care Care Professionals Name | Role | Phone | + [...] as of this encounter Progress Notes Interface, Mc Kay Stitcher In - 11/28/2005 2:08 AM PDT [id number] ARETHA RAE [id number] Clinic Date: 11/22/2005 Clinic: [facility] [...] conference presentation. Herberth Ayala M.D. Chelsie / [id number] / [id number] / [id number] / [id number] Electronically signed by Herberth Brambila 11-27-2005 02:01:34 PM documented i n this encounter Plan of Treatment Not on filedocumented as of this encounter Visit Diagnoses Not on filedocumented in this encounter"
--- OUTSIDE RECORDS SUMMARY | ~2018-08-20 | XMS | Encounter Summary ---
Demographics + + + | Address | [address] | | | [place] [address] | + + + | Home Phone | | + + + | Preferred Language | Unknown | + + + | Marital Status | | + + + | Hindu Affiliation | PRO | + + + | Race | White | + + + | Ethnic Group | Not or | + + + Author + + + | Author | [facility] | + + + | Organization | [facility] | + + + | Address | Unknown | + + + | Phone | Unavailable | + + + Support + + + + + | Name | Relationship | Address | Phone | + + + + + | Hector Mack | ECON | [address] | | | | | [place] | | | | | [address] | | + + + + + Care Team Providers + +------+ + | Care Correctional Counselor Name | Role | Phone | + +------+ + | Tuan Chan MD | PCP | | + +------+ + Encounter Details +--------+ + + + + | Date | Type | Department | Care Team | Description | +--------+ + + + + | 09/09/ | Hospital | LAB REFERRED TESTS | | | | 2008 | Encounter | [address] | | | | | | [facility] | | | | | | [place] | | | | | | [address] | | | +--------+ + + + [...]
--- OUTSIDE RECORDS SUMMARY | ~2018-08-20 | XMS | Encounter Summary ---
Demographics + + + | Address | [address] | | | [place] [address] | + + + | Home Phone | | + + + | Preferred Language | Unknown | + + + | Marital Status | | + + + | Advent Affiliation | PRO | + + + | Race | White | + + + | Ethnic Group | Not or | + + + Author + + + | Author | [facility] | + + + | Organization | [facility] | + + + | Address | Unknown | + + + | Phone | Unavailable | + + + Support + + + + + | Name | Relationship | Address | Phone | + + + + + | Hector Mack | ECON | [address] | | | | | [place] | | | | | [address] | | + + + + + Care Team Providers + +------+ + | Care Enamel Burner Name | Role | Phone | + [...] | Diagnoses | Dustin, | Jefry Med [facility] | | | | | rash, | Tuan Gooden MD | [address] | | | | | unclear | [address] | [address] | | | | | etiology | [address] | Mail Code: | | | | | Procedures | [facility] | [facility] | | | | | Consult | 2010 | for Health | | | | | | [place], | and Healing, | | | | | | [place] [address] | 16th floor | | | | | | Phone: | [place], [place] | | | | | | [phone] | [address] | | | | | | Fax: | Phone: | | | | | | [phone] | [phone] | | | | | | | Fax: | | | | | | | [phone] | +--------+--------+ + + + + Encounter Details +--------+---------+ + + + | Date | Type | Department | Care Team | Description | +--------+---------+ + + + | 08/05/ | Office | Dermatology | Kaleb, Khoa Lee, | Rash and Other | | 2008 | Visit | Medical at [facility] 16th | ,PhD Gloria | Nonspecific Skin | | | | Floor [address] | Allergy Asthma | Eruption (Primary | | | | Ave Mail Code: | Dermatology [address] | Dx) | | | | [facility] for | [place] [address] | | | | | Health and [facility], | [place] [address] | | | | | 16 floor | [phone] | | | | | [place], [place] | | | | | | [address] | | | | | | [phone] | | | +--------+---------+ + + + [...] documented in this encounter Progress Notes Khoa Manuel MD,PhD - 08/09/2008 3:49 PM PDTATTENDING PHYSICIAN ATTESTATION I personally interviewed, examined the patient, was present for the biopsy procedure, and d iscussed management with the resident. I reviewed and edited the resident's note and agree with the documented findings and plan of care. Khoa Manuel MD, PhD Bill Adjuster, Department of Dermatology [facility] 08/05/2008 Genoveva Galeano Md - 08/05/2008 2:39 [...] skin culture done by Dr. Chan in [facility] prior to her gastric by pass [...] the day. She has never seen a hinging machine operator. The patient's dermatology intake form was reviewed, signed, and dated. Her relevant PMH, F H, and SH includes: PAST MEDICAL HISTORY: --Gastric bypass in 02/[address] Johnson, used to weigh 450 pounds --s/p abdominoplasty in 06/06 --s/p CABG in 2000 in [facility] --s/p cholecystectomy 35 years ago [...] defect in Ca++ channel). Inverse psoriasis and Ninfa ninfa are also on the DDx but much [...] Natalie Olsen M.D. Resident, Department of Dermatology [facility] documented in th is encounter Plan of Treatment + + +--------+ + + | Name | Type | Priori | Associated Diagnoses | Order Schedule | | | | ty | | | + + +--------+ + + | HI BIOPSY OF SKIN | Procedures | Routin [...]
--- OUTSIDE RECORDS SUMMARY | ~2018-08-20 | XMS | Encounter Summary ---
Demographics + + + | Address | [address] | | | [place] [address] | + + + | Home Phone | | + + + | Preferred Language | Unknown | + + + | Marital Status | | + + + | Yarsani Affiliation | PRO | + + + | Race | White | + + + | Ethnic Group | Not or | + + + Author + + + | Author | [facility] | + + + | Organization | [facility] | + + + | Address | Unknown | + + + | Phone | Unavailable | + + + Support + + + + + | Name | Relationship | Address | Phone | + + + + + | Hector Mack | ECON | [address] | | | | | [place] | | | | | [address] | | + + + + + Care Team Providers + +------+ + | Care Steel Inspector Name | Role | Phone | [...] 01/14/ | Office | Preoperative | 1, [facility] 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 [address] | Panniculitis; CAD | | 2007 | Visit | Medicine Clinic at | [facility] [address] | (Coronary Artery | | | | [facility] 4th Floor [address] | [place] [address] | Disease); DM Circ | | | | [address] | | Dis Type II, | | | | Code: [facility] | | Uncontrolled (HCC); | | | | for Health and | | Other Specified | | | | Healing,4th Floor | | Pre-Operative | | | | [place], [place] | | Examination | | | | [address] | | | | | | [phone] | | | +--------+---------+ + + + [...] | + + +--------+ + + | [place] COLLECTION VENOUS | Procedures | Routin | [...] + + + + | [facility] DEPARTMENT OF | [address] [facility] | [place] [address] | | | PATHOLOGY | [address] | | | + + + + + | [facility] DEPARTMENT OF | [address] [facility] [facility] | [place] [address] | | | PATHOLOGY | [address] [...] + + + | [facility] | [address] [place] [address] [address] | [place] [address] | | | PATHOLOGY | [address] | | | + + + + + | [facility] | [address] | [place] [address] | | | PATHOLOGY | [address] [...] + + + + | [facility] DEPARTMENT OF | [address] | [place] [address] | | | PATHOLOGY | [address] | | | + + + + + | [facility] DEPARTMENT OF | [facility] | [place] [address] | | | PATHOLOGY | [address] [...] + + | [facility] | [address] [facility] [facility] | [place] [address] | | | PATHOLOGY | [address] | | | + + + + + | [facility] | [address] [facility] | [place] [address] | | | PATHOLOGY | [address] [...] Performed At | + + + | [id number] Estimated GFR > 60 mL/min/1.73 sq m if non- | [facility] | | [place] [id number] Estimated GFR > 60 mL/min/1.73 sq m if | DEPARTMENT OF | | [place] GFR is estimated using the MDRD equation [...] + + + | [facility] | [address] | [place] [address] | | | PATHOLOGY | [address] | | | + + + + + | [facility] DEPARTMENT OF | [address] | [place] [address] | | | PATHOLOGY | [address] [...] DEPARTMENT OF | [address] | [place] [address] | | | PATHOLOGY | [address] | | | + + + + + | [facility] DEPARTMENT | [address] | [place] [address] | | | PATHOLOGY | [address] [...] view image for the detailed interpretation from In[employer] results. | CARDIOLOGY | | | | + + + + + + + + | Performing | Address | City/State/Zipcode | Phone Number | | Organization | | | | + + + + + | [facility] DEPT OF | [address] | [place], [place] | | | CARDIOLOGY | [address] | [address] | | + + + + + | [facility] DEPT OF | [address] | [place], [place] | | | CARDIOLOGY | [address] [facility] | [phone] | | + + + + + documented in this encounter Visit Diagnoses + + | Diagnosis | + + | Panniculitis Panniculitis, unspecified site | + + | CAD (coronary artery disease) Coronary atherosclerosis of unspecified type of vessel, | | [place] or graft | + + | Type II or unspecified type diabetes mellitus with peripheral circulatory disorders, | | uncontrolled(250.72) Type II or unspecified type diabetes mellitus with peripheral | | circulatory disorders, uncontrolled | + + | Other specified pre-operative examination | + + documented in this encounter
--- OUTSIDE RECORDS SUMMARY | ~2018-08-20 | XMS | Encounter Summary ---
Demographics + + + | Address | [address] | | | [place] [address] | + + + | Home Phone [...] | + + + + + | Hcetor Mack | ECON | [address] | | | | | [place] | | | | | [address] | | + + + + + Care Team Providers + +------+ + | Care Denture Laboratory Technician Name | Role | Phone | + +------+ + | Tuan Chan MD | PCP | | + +------+ + Encounter Details +--------+ + + + + | Date | Type | Department | Care Team | Description | +--------+ + + + + | 06/25/ | Procedure - | | Lab, Gi Procedure | ESOPHAGEAL MOTILITY | | 2005 | | | | [...] | + +--------+ + + + | ESOPHAGEAL MOTILITY | | 06/25/2005 | | | + +--------+ + + + documented in this encounter Visit Diagnoses Not on filedocumented in this encounter"
--- OUTSIDE RECORDS SUMMARY | ~2018-08-20 | XMS | Encounter Summary ---
Demographics + + + | Address | [address] | | | [place] [address] | + + + | Home Phone | | + + + | Preferred Language | Unknown | + + + | Marital Status | | + + + | Bahai Affiliation | PRO | + + + | Race | White | + + + | Ethnic Group | Not or | + + + Author + + + | Author | [facility] | + + + | Organization | [facility] | + + + | Address | Unknown | + + + | Phone | Unavailable | + + + Support + + + + + | Name | Relationship | Address | Phone | + + + + + | Hector Mack | ECON | [address] | | | | | [place] | | | | | [address] | | + + + + + Care Team Providers + +------+ + | Care Over The Horizon Targeting Supervisor Name | Role | Phone | [...] Prescription | | 2010 | | [address] | [address] | Clarification | | | | Mail Code: CH10U | [place], [place] | | | | | [facility] | [address] | | | | | and , | [phone] | | | | | Floor [place], [place] | | | | | | [address] | | | | | | [phone] | | | +--------+ + + + [...]
--- OUTSIDE RECORDS SUMMARY | ~2018-08-20 | XMS | Encounter Summary ---
Demographics + + + | Address | [address] | | | [place] [address] | + + + | Home Phone [...] + + + | Author | [facility] | + + + | Organization | [facility] | + + + | Address | Unknown | + + + | Phone | Unavailable | + + + Support + + + + + | Name | Relationship | Address | Phone | + + + + + | Hector Mack | ECON | [address] | | | | | [place] | | | | | [address] | | + + + + + Care Team Providers + +------+ + | Care Integrity Director Name | Role | Phone | [...] Road | | | | | | [place], [place] | Mailcode: | | | | | | [address] | [address] [facility] | | | | | | | [facility] | | | | | | | [place], [place] | | | | | | | [address] | | | | | | | Phone: | | | | | | | [phone] | | | | | | | Fax: | | | | | | | [phone] | +--------+--------+ + + + + Diagnostic [...] | | | | | Mary | [facility] | | | | | | [place], [place] | Mailcode: | | | | | | [address] | [address] [facility] | | | | | | | [facility] | | | | | | | [place], [place] | | | | | | | [address] | | | | | | | Phone: | | | | | | | [phone] | | | | | | | Fax: | | | | | | | [phone] | +--------+--------+ + + + + Diagnostic [...] CTA | Socorro Genao MD | [address] | | | | | HEAD WITH | [address] | | | | CONTRAST | [address] | [address] | | | | | | [address] | Road | | | | | | [place] | Mailcode: | | | | | | [address] | [address] [facility] | | | | | | Phone: | Hospital | | | | | | [phone] | [place], [place] | | | | | | Fax: | [address] | | | | | | [phone] | Phone: | | | | | | | [phone] | | | | | | | Fax: | | | | | | | [phone] | +--------+--------+ + + + + Diagnostic [...] CTA | Socorro Genao MD | alyssa [address] | | | | | HEAD WITH | [address] | | | | | CONTRAST | South | [address] | | | | | | [address] | Road | | | | | | [place] | Mailcode: | | | | | | [address] | [address] [facility] | | | | | | Phone: | [facility] | | | | | | [phone] | [place], [place] | | | | | | Fax: | [address] | | | | | | [phone] | Phone: | | | | | | | [phone] | | | | | | | Fax: | | | | | | | [phone] | +--------+--------+ + + + + Diagnostic [...] | | | | [address] | [facility] | | | | | | [facility] | Mailcode: | | | | | | [place], [place] | [address] | | | | | | [address] | [place] | | | | | | Phone: | Research | | | | | | [phone] [facility] | | | | | | Fax: | [place], [place] | | | | | | [phone] | [address] | | | | | | | Phone: | | | | | | | [phone] | | | | | | | Fax: | | | | | | | [phone] | +--------+--------+ + + + + Diagnostic [...] | | | | [address] | [facility] | | | | | | [facility] | Mailcode: | | | | | | [place], [place] | [address] | | | | | | [address] | [place] | | | | | | Phone: | Research | | | | | | [phone] | [place] | | | | | | Fax: | [place], [place] | | | | | | [phone] | [address] | | | | | | | Phone: | | | | | | | [phone] | | | | | | | Fax: | | | | | | | [phone] | +--------+--------+ + + + + Reason [...] + + | 04/21/ | Hospital | [facility] [address] | Bryan Adams MD | | | 2013 - | Encounter | [address] | [address] | | | | | [address]/KPV12 MIMA | Scotty Nolasco | | | 04/24/ | | [place], | [place] [address] | | | 2012 | | [place] [address] | [phone] | | | | | [phone] | | | | | | | Chaim Vizcarra MD | | | | | | [address] | | | | | | [address] [place], | | | | | | [place] [address] | | | | | | [phone] | | | | | | | [...] she was subsequently transferred to [facility] for escalation of care. On comparison [...] Derm follow-up closer to her home in [place]. Medications: Discharge Medication List as of 04/24/2012 [...] Attending Physician: MD Tuan Sethi MD Neurology Bathing Suit Maker Pager [phone] I saw and evaluated the patient. I agree with the findings and the plan of care as yesika lares in the resident s note. Halley Noriega MD Calciner Operator Department of Neurology [facility] DEPARTMENT: Neurology Attending - [id number] Place of Service: [facility] Date of Service: 04/24/2012 CSN: [id number] Suggestive Modifier: GC - Resident Present Suggested CPT: 40280 - Discharge Day mgmt up to 30 [...] any questions. DANIELLE WYNN PA-C [facility] [address] [facility] [address] [address]kp[address] [place] [address] hPetrona ayala PA - 04/23/2012 10:44 AM PSTFormatting of this note might be different from the [facility]. NEUROSURGERY DAILY PROGRESS NOTE Author: DANIELLE WYNN [...] PLT 217 03/13/2011 7:46 AM PLT See [facility] 03/11/2011 5:13 PM CULTURE [...] clinically indicated. Final Rep ort Resulted: 03/13/11 [facility] ([facility]) [facility] [address] [place] [address] STUDY: SPINE CERVICAL 2 VWS FLEX/EXT 04/22/12 [...] otherw ise intact. Motor 5/5 except LUE photocomposing machine operator 4/5 Sensation intact to light touch Assessment [...] continue to follow. FABIO JACOBSEN-Matty [facility] 10P [address] [facility] [address] [address]kp2 [place] [address] Halley Haddad MD - 04/23/2012 8:37 AM [...] Hari, attending physician, who agrees with the [facility] assessment and plan. VERA COOK MD,MPH Neurology Resident [id number] I performed a history and physical examination [...] it requires holding plavix. Halley Noriega MD Calciner Operator Department of Neurology EPIC DEPARTMENT: Neurology Attending - [id number] Place of Service: - Date of Service: 04/22/2013 CSN: [id number] Suggestive Modifier: None Suggested CPT: 00616 - Initial Visit, Level 2 Suggested Diagnosis: [...] w eakness and referred to [facility] for possible cervical fracture. MRI suggests [...] Tongue midline Trace left pronator drift Slowed uwqjqd-gq-cajs movements with mild end-point dysmetria 5/5 bilateral [...] Downs MD - 04/22/2012 7:47 AM PST [facility] Neuroscience ICU Progress Note Team Pager: [phone] Attendin Attending Sole Buffer: Primary Service Attending: MD Bryan Espinosa MD [...] 84.5 kg (186 lb 4.6 oz) (04/21/12 6055) Today s weight: Not on file. Date 04/21/12 07 - 04/22/12 0659 04/22/12 07 - 04/23/12 0659 Shift 6178-9007 2496-4482 2073-2033 Daily Total 9136-1086 4964-4397 6392-3823 Daily Total I N T A K [...] plan. Viktoriya Downs MD PGY2 Neurology Pager [phone] documented in t his encounter Plan of [...] MARQUAM | [address] | [place], [place] | | | MARLEEN NESBITT OF CARE | [address] | [address] | | | TESTS | | | [...] [facility] | [address] | [place] [address] | | | SERVICES, CORE | PARK [...] [facility] | [address] | [place] [address] | | | SERVICES, CORE | MARY [...] + + + | [facility] | [address] | [place] [address] | | | SERVICES, BLU | MARY [...] + + | [facility] | [address] [facility] [address] | [place], [place] | | | DELICIA [facility] | [facility] | [address] | | | TESTS | | | [...] that she was seen by [facility] | | | dermatology in 2008 with [...] Education: N/A 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 The patient was seen and examined with | | | the attending physician. We discussed the recommendations listed | | | above. Trevor Sosa M.D. Resident, Department of | | | Dermatology [facility] Attending | | | Physician Attestation I personally interviewed, examined the patient, | | | and discussed management with the resident. I reviewed and | | | edited the resident's note and agree with the documented findings | | | and plan of care. Khoa Manuel MD, PhD Model And Mold Maker Plaster | | | Professor, Department of Dermatology [facility] | | | [facility] DEPARTMENT: [id number] - [facility] Place of | | | Service:- Inpatient Date of Service: 04/23/2012 MEDICAL RECORD | | | NUMBER [id number] CSN: [id number] Suggested Modifier: CARLOS Resident | | | Involved: GC Resident Involved Suggested CPT: 67634 - Initial, | | | Detailed; Low [...] that she was seen by [facility] | | dermatology in 2008 with [...] of Education: N/A Occupational History | | [employer] Social History Main Topics | | Smoking [...] | | mg, 1 mg, Intramuscular, PRN, Viktroiya Downs MDglucose chewable tablet 16 g, 16 [...] | follow-up closer to her home in [place]; would f/u with a hand meat salter there if not | | improved on topicalsPlease contact us with further questions. The patient was seen and | | examined with the attending physician. We discussed the recommendations listed | | above.Trevor Sosa M.D.Resident, [facility] | | [place] Attending Physician AttestationI personally interviewed, examined the | | patient, and discussed management with the resident. I reviewed and edited the | | resident's note and agree with the documented findings and plan of care. Khoa Lee | | MD Kaleb, PhDAssistant Professor, [facility] | | [facility] DEPARTMENT: [id number] - [facility]:82390- Inpatient Date | | of Service: 04/23/2012 : [id number] Modifier: | | GC Resident Involved: GC Resident InvolvedSuggested CPT: 62357 - Initial, Detailed; Low | | complex [...] to follow-up closer to her home in [place]; would f/u with a hand meat salter there if not improved on topicals | | | |Please contact us with further questions. The patient was seen and examined with the attend ing physician. We discussed the recommendations listed above. | | | | | |Trevor Sosa M.D. | |Resident, Department of Dermatology | |[facility] | | | |Attending Physician Attestation | |I personally interviewed, examined the patient, and discussed management with the resident. I reviewed and edited the resident's note and agree with the documented findings and plan of care. | | | | | |hKoa Manuel MD, PhD | |Calciner Operator, Department of Dermatology | |[facility] | | | |[facility] DEPARTMENT: [id number] [facility] | |Place of Service:13785- Inpatient | |Date of Service: 04/23/2012 | | | |CSN: [id number] | |Suggested Modifier: GC Resident Involved: GC Resident Involved | |Suggested CPT: 11926 - Initial, Detailed; Low complex 30 min [...] [facility] | [address] | [place], [place] | | | MARLEEN NESBITT OF CARE | [address] | [address] | | | TESTS | | | [...] + | [facility] - AIRPORT - | [address] | [place] [address] | | | [place] | | | [...] + | [facility] - AIRPORT - | [address] | [place] [address] | | | [place] | | | [...] | + + + + + | [facility] - [facility] - | [address] | [place] [address] | | | [place] | | | [...] ELYSE | [address] | [place], [place] | | | MARLEEN NESBITT OF LANCE | [facility] | [address] | | | TESTS | | | [...] + | [facility] - AIRPORT - | [address] | [place] [address] | | | [place] | | | [...] | prevalent in the general | | [place] | | | | population, and in [...] + | [facility] - AIRPORT - | [address] | [place] [address] | | | [place] | | | [...] SERUM | Severe deficiency. If | | [facility] - | | | | supplementation does not | | [place] | | | | correct consider | [...] if | | | | | | [id number] >400: | | | | | | [...] | + + + + + | [facility] - AIRPORT - | [address] | [place] [address] | | | [facility] | | | | + + + [...] by | | | | | | ADVID 0.99 MAKAYLA or | | | | [...] | | | | | | [facility] | | | | | | [place] | | | | | | [address] | | | | | | [phone].[employer]. | | | | | | Alma [...] [facility] | [address] | [place], [place] | | | UNIV PTH - INTFC | | [address] | | + + + + + [...] + | [facility] - AIRPORT - | [address] | [place] [address] | | | [place] | | | [...] + | [facility] - AIRPORT - | [address] | [place] [address] | | | [facility] | | | | + + + [...] + | [facility] - AIRPORT - | [address] | [place] [address] | | | [place] | | | | + + + [...] [facility] | [address] | [place] [address] | | | SERVICES, CORE | PARK [...] + + + + + + | FLOODPLAIN MANAGER AB | Negative | Negative | [facility] [...] + | | <7.0 7.0-10 >10 Abraham FLOODPLAIN MANAGER AB | COAG | | U/ml <5.0 [...] + + + + + | [facility] | [address] | [place] [address] | | | SERVICES, SPECIAL | PARK [...] [facility] | [address] | [place] [address] | | | SERVICES, SPECIAL | PARK [...] [facility] | [address] | [place] [address] | | | SERVICES, CORE | PARK [...] + + + + + | [facility] | [address] | [place] [address] | | | SERVICES, CORE | MARY [...] + + + + + | [facility] | [address] | [place] [address] | | | SERVICES, CORE | MARY [...] | | | | | | isrecommended.3. Broaching Machine Set Up Operator | | | | | | [...] | | + +---------+ + + | [facility] DEPARTMENT OF | | | | | [...] | | | | | | isrecommended.3. Broaching Machine Set Up Operator | | | | | | [...] ELYSE | [address] | [place], [place] | | | MARLEEN NESBITT OF LANCE | [address] | [address] | | | TESTS | | | [...] 60 - 99 mg/dL | [facility] - | | | GLUCOSE, | [...] [facility] | [address] | [place], [place] | | | MAR[facility]EN NESBITT [facility] | [facility] | [address] | | | TESTS | | | [...] back | | | | | | [id number]. Attending | | | | | | [...] + +---------+ + + | [facility] DEPARTMENT OF | | | | [...] + + + | [facility] | [address] | [place], [place] | | | MARLEEN NESBITT [facility] | [address] | [address] | | | TESTS | | | [...] [facility] | [address] | [place] [address] | | | SERVICES, BLU | MARY [...] | + + + + + | [facility] | [address] | [place] [address] | | | SERVICES, CORE | MARY [...] | | | | Fin | | [place] | | | | al CULTURE | [...] | + + + + + | [facility] - AIRPORT - | [address] | [place] [address] | | | [place] | | | [...] [facility] | [address] | [place] [address] | | | SERVICES, CORE | MARY [...] [facility] | [address] | [place], [place] | | | DELICIA POINT OF CARE | [address] | [address] | | | TESTS | | | [...] [facility] | [address] | [place] [address] | | | SERVICES, CORE | PARK [...] | + + + + + | [facility] | [address] | [place] [address] | | | SERVICES, | [address] [...] + + + + | [facility] | [address] | [place] [address] | | | SERVICES, | [address] [...] 1.00 | 0.90 - 1.20 INR | [facility] | | | | | | [...] + + + + | [facility] | [address] | [place] [address] | | | SERVICES, CORE | PARK [...] [facility] | [address] | [place] [address] | | | SERVICES, CORE | PARK [...] [facility] | [address] | [place] [address] | | | SERVICES, CORE | PARK [...]
--- OUTSIDE RECORDS SUMMARY | ~2018-08-20 | XMS | Encounter Summary ---
Demographics + + + | Address | [address] | | | [place] [address] | + + + | Home Phone [...] [place] | | | | | [address] | | + + + + + Care Team Providers + +------+ + | Care Painter Ordnance Name | Role | Phone | + [...] | | Transcribed | | Mary [place], | | | | | | [place] [address] | | | | | | [phone] | | | | | | | [...] Pedraza MD - 06/18/2007 12:00 AM PDT [id number] | | [id number] ARETHA RAE [id number] | | [id number] Date: 06/18/2007 Attending Surgeon: Noe Hdez M.D. | | Log Snaker(s): Bryan Pedraza M.D. Preoperative Diagnosis(es): Right | | urolithiasis. Postoperative Diagnosis(es): Right urolithiasis. Procedures | | Performed: 1. Rigid cystourethroscopy. 2. Right retrograde pyelogram. 3. Right flexible | | nephroureteroscopy with holmium laser lithotripsy. 4. Right ureteral stent placement | | (6-Namibian x 24 cm). 5. Fluoroscopy with interpretation. [...] case. After | | surgical pause, a 21-Namibian rigid cystoscope was inserted into the bladder [...] both proximally and distally. An | | 18-Namibian Mirza catheter was then placed and filled [...] | | Chey Pedraza M.D. D / [id number] / [id number] / [id number] / | | [id number] Reviewed or Edited By Bryan Pedraza | [...] | | | After surgical pause, a 21-Namibian rigid cystoscope was inserted into the | [...] both proximally and distally. An | | 18-Namibian | | Mirza catheter was then placed [...] | | BDD / HS | | [id number] / [id number] / [id number] / [id number] | | | | | | | [...]
--- OUTSIDE RECORDS SUMMARY | ~2018-08-20 | XMS | Encounter Summary ---
Demographics + + + | Address | [address] | | | [place] [address] | + + + | Home Phone [...] + + + | Author | [facility] | + + + | Organization | [facility] | + + + | Address | Unknown | + + + | Phone | Unavailable | + + + Support + + + + + | Name | Relationship | Address | Phone | + + + + + | Hector Mack | ECON | [address] | | | | | [place] | | | | | [address] | | + + + + + Care Team Providers + +------+ + | Care Maternal Fetal Physician Name | Role | Phone | [...] Closed | | Radiology | Diagnoses | Alexey | [address] Scan | | | | | Hernia of | Aysha Crow | [address] | | | | | unspecified | [address] | | | | | site of | [address] | [facility] | | | | | abdominal | [place], [place] | Road | | | | | cavity | [address] | Mailcode: | | | | | without | | [address] [facility] | | | | | mention of | | Hospital | | | | | obstruction | | [place], [place] | | | | | or gangrene | | [address] | | | | | Procedures | | Phone: | | | | | CT ABDOMEN | | [phone] | | | | | WWO CONTRAST | | Fax: | | | | | LTD | | [phone] | +--------+--------+ + + + + Encounter Details +--------+ + + + + | Date | Type | Department | Care Team | Description | +--------+ + + + + | 08/05/ | Hospital | Radiology/Imaging | | | | 2008 | Encounter | Lab at [facility] [address] | | | | [address] | | | | | | Mailcode: CH3G | | | | | | [place] [facility] | | | | | | and Healing, 3rd | | | | | | Floor [place], [place] | | | | | | [address] | | | | | | [phone] | | | +--------+ + + + [...] + +---------+ + + | triamcinolone | by Topical route. | 60g | 2 | 08/06/19 | | | acetonide 0.1 % | Apply thin film to | | | 09 | 9 | | Topical Cream | affected areas 1-2 | | | | | | | times daily for | | | | | | | flares, then BIW for | | | | | | | maintenance. | | | | | + + + +---------+ + + documented as of this encounter Plan of Treatment Not on filedocumented as of this encounter Visit Diagnoses + + | Diagnosis | + + | Hernia of unspecified site of abdominal cavity without mention of obstruction or | | gangrene | + + documented in this encounter"
--- OUTSIDE RECORDS SUMMARY | ~2018-08-20 | XMS | Encounter Summary ---
Demographics + + + | Address | [address] | | | [place] [address] | + + + | Home Phone | | + + + | Preferred Language | Unknown | + + + | Marital Status | | + + + | Druze Affiliation | PRO | + + + | Race | White | + + + | Ethnic Group | Not or | + + + Author + + + | Author | [facility] | + + + | Organization | [facility] | + + + | Address | Unknown | + + + | Phone | Unavailable | + + + Support + + + + + | Name | Relationship | Address | Phone | + + + + + | Hector Mack | ECON | [address] | | | | | [place] | | | | | [address] | | + + + + + Care Team Providers + +------+ + | Care Forder Operator Name | Role | Phone | [...] 06/02/ | Office | Urology Adult | LemuelNoe, | Urolithiasis | | 2007 | Visit | [address] | MD [address] | (Primary Dx) | | | | Mail Code: CH10U | [place], [place] | | | | | [facility] | [address] | | | | | and | [phone] | | | | | Floor [place], [place] | | | | | | [address] | | | | | | [phone] | | | +--------+---------+ + + + [...] 1 Years of Education: N/A Occupational History [employer] Social History Main Topics Tobacco Use: Quit [...] risks, and all of her questions were answerkelly d. She gives informed consent for surgery. hengAdriana - 06/03/2007 2:32 PM PSTUA done per [...] + + + + + | [facility] | [address] | [place], [place] | | | BRONTE POINT OF CARE | [address] | [address] | | | TESTS | | | | + + + + + | [facility]-POINT [facility] CARE | [address] | [place], [place] | | | TESTS | [facility] | [address] | | + + + + + documented in this encounter Visit Diagnoses + + | Diagnosis | + + | Urolithiasis - Primary Urinary calculus, unspecified | + + documented in this encounter"
--- OUTSIDE RECORDS SUMMARY | ~2018-08-20 | XMS | Encounter Summary ---
Demographics + + + | Address | [address] | | | [place] [address] | + + + | Home Phone | | + + + | Preferred Language | Unknown | + + + | Marital Status | | + + + | Buddhism Affiliation | PRO | + + + | Race | White | + + + | Ethnic Group | Not or | + + + Author + + + | Author | [facility] | + + + | Organization | [facility] | + + + | Address | Unknown | + + + | Phone | Unavailable | + + + Support + + + + + | Name | Relationship | Address | Phone | + + + + + | Hector Mack | ECON | [address] | | | | | [place] | | | | | [address] | | + + + + + Care Team Providers + +------+ + | Care Civilian Jail Officer Name | Role | Phone | [...] | 11/03/ | Office | Dermatology | Julia Buckley | 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 [facility] 16th | [place] [address] | (Primary Dx); | | | | Floor [address] [place], | Encounter for | | | | Ave Mail Code: | [place] [address] | Long-Term (Current) | | | | [facility] | [phone] | Use of Other | | | | Health and Healing, | | Medications | | | | 16th floor | | | | | | [place], [place] | | | | | | [address] | | | | | | [phone] | | | +--------+---------+ + + + [...] in 06/06 --s/p CABG in 2000 in [facility] --s/p cholecystectomy 35 years ago --s/p appy [...] month Julia Buckley PA-C Department of Dermatology [facility] documented in this encounter Plan of Treatment Not on filedocumented as of this encounter Visit Diagnoses + + | Diagnosis | + + | 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
--- OUTSIDE RECORDS SUMMARY | ~2018-08-20 | XMS | Encounter Summary ---
Demographics + + + | Address | [address] | | | [place] [address] | + + + | Home Phone [...] [place] | | | | | [address] | | + + + + + Care Team Providers + +------+ + | Care Audio Visual Equipment Rental Clerk Name | Role | Phone | + +------+ + | Tuan Chan MD | PCP | | + +------+ + Reason for Visit + + + | Reason | Comments | + + + | New patient | | | consultation | | + + + | Kidney stone | | + + + | Pre-op evaluation | Pre-op for Percutaneous Stone Treatment | + + + Consultation (Routine) +--------+--------+ + + + + | Status | Reason | Specialty | Diagnoses / | Referred By | Referred To | | | | | Procedures | Contact | Contact | +--------+--------+ + + + + | Closed | | Urology | Diagnoses | Rayshawn, | Claudine, | | | | | Calculus | Maria Teresa Lee MD | MD Renato | | | | | obstructing | [facility] | [address] | | | | | calculus at | [address] | Ave | | | | | the right | [facility] | [place], [place] | | | | | [place]. | [address] | [address] | | | | | | [address] | Phone: | | | | | | [place], | [phone] | | | | | | [place] [address] | Fax: | | | | | | Phone: | [phone] | | | | | | [phone] | | | | | | | Fax: | | | | | | | [phone] | | +--------+--------+ + + + + Encounter Details +--------+---------+ + + + | Date | Type | Department | Care Team | Description | +--------+---------+ + + + | 03/11/ | Office | Urology Fertility | Renato Chow MD | Kidney stone | | 2010 | Visit | [address] | [address] | (Primary Dx); Other | | | | Mail Code: CH10U | [place], [place] | specified | | | | [facility] | [address] | pre-operative | | | | and | [phone] | examination | | | | Floor [place], [place] | | | | | | [address] | | | | | | [phone] | | | +--------+---------+ + + + [...] + + + | Blood Pressure | 140/89 | 03/11/2011 3:51 PM | | | | | PST | | + + + + + | Pulse | 63 | 03/11/2011 3:51 PM | | | | | PST [...] + + + + | Weight | 86.7 kg (191 lb 3.2 | 03/11/2011 3:51 PM | | | | oz) | PST | | + + + + + | Height | 162.6 cm (5' 4") | 03/11/2011 3:51 PM | | | | | PST | | + + + + + | Body Mass Index | 32.82 | 03/11/2011 3:51 PM | | | | | PST | | + + + + + documented in this encounter Patient Instructions Patient Instructions Renato Chow MD - 03/11/2011 4:44 PM PST Registration Locations (please check in at one of the following registration desks prior to surgery) For surgeries scheduled to take place on the ladd at the [facility]: Surgeries scheduled in the [facility] (4 North): registration is located on the 4th floor of [facility] (Day Surgery). Surgeries scheduled in the [facility]: registration is located on the 9th floor. Surgeries scheduled in [facility]: registration is located on the 6th floor. Surgeries scheduled in the [facility]: registration is located i n the [facility] on the first floor. For surgeries scheduled to take place at the [facility]: registration is l ocated on the 4th floor (Surgery Center). Important Information Due to the increased prevalence of pests in our community, we are asking patients to partne r with us to keep our hospital clean. If you have noticed bugs or other pests in your home, on your belongings or on your body, please contact your doctor's office prior to your admis gris. For your safety and protection, please limit what you bring to the hospital. All valuables should be left at home. This includes pillows, blankets, clothing, purses, wallets, money an d jewelry. Patients may not bring personal electronics into the hospital, including hairdry ers, electric rommel, radios and CD players. If you use specialized medical equipment at [facility], please check with your provider before bringing it with you into the hospital. Registration Process for all Admissions/Surgeries 1. Please bring your insurance card(s) with you and be prepared to pay any co-payment, co-i nsurance or deposit that may be required. 2. Once you arrive at the registration desk, you will be interviewed by a Patient Access Se rvice Specialist (PAS). Demographics will be verified (example: name, date of , Social Security Number, address, insurance). 3. You will be asked to sign some paperwork: Terms and Conditions of Service, Notice of Edith vacy Practices Acknowledgement and Genetic Testing Opt Out. 4. You will be given some paperwork: copies of any forms signed by you, Patient Rights, Res ponsibilities and Safety, Understanding Advance Directives, and Smoking Cessation Brochure.E lectronically signed by Renato Chow MD at 03/11/2011 4:44 PM PST documented in this encounter Progress Notes Renato Chow MD - 03/11/2011 4:25 PM PST Identification: Germaine Heard is a 65 y.o. female referred by Dr. Deirdre Anne for [facility] percutaneous ultrasonic lithotripsy Subjective: previous right ureterorenoscopy for small stones. She did well for while but th en began to again have right flank pain. A CAT showed multiple small stone in right kidney. Dr. Deirdre Anne thought the stone burden was too great for shock wave lithotripsy and refe rred her for percutaneous ultrasonic lithotripsy after she has placed a ureteral stent . The stent has caused some dysuria and urinary frequency. She has been on a daily dose of an tibiotic since the stent was placed but does not recal the name. ? Cipro. She has no flank p ain currently. myocardial infarction in 2001 followed by CABG in [place]. She has been maintained of Plavx since then but stopped it over a week ago. She has no cardiac symptoms especially since w eight loss from 550 to 190 after gastric bypass in 2005. Pannus removed more recently by Dr. Gia Amin at [facility]. She suffers from chronic back pain for many years, takes daily oxycontin 10 mg bid, and hyd rocodone for break through pain. chronic hypertension well controlled with medication no tobacco or alcohol for 23 years Objective: CAT, multiple small stones in right kidney and a ureteral stent nf a follow up K UB UA with blood. sent for culture Patient Active Problem List Diagnoses Dysmetabolic Syndrome X CAD (Coronary Artery Disease) Sleep Apnea Gout DM Circ Dis Type II, Uncontrolled Dyslipidemia Achalasia Obesity Panniculitis Intertrigo Hernia Current Outpatient Prescriptions Medication Sig acitretin (SORIATANE) 10 mg Oral Capsule Take 1 Cap by mouth once daily. Take with larg est meal of the day. ALBUTEROL 90 MCG/ACTUATION AEROSOL INHALER inhale 1 puff by inhalation route every 4-6 hours as needed bacitracin 500 unit/g Topical Ointment by Topical route. To wound daily bumetanide 1 mg Oral Tablet 1 tab bid buPROPion SR (WELLBUTRIN SR) 150 mg Oral Tablet Sustained Release 1 tablet as needed chlorhexidine gluconate (HIBICLENS) 4 % Topical Liquid 15 mL by Topical route as needed . Scrub 3 minutes and rinse thoroughly, wash for an additional 3 minutes. ciprofloxacin (CIPRO) 500 mg Oral Tablet Take 1 Tab by mouth two times daily. clopidogrel (PLAVIX) 75 mg Oral Tablet take [...] 1 Tab by mouth every twelve hours. oxycodone, immediate release, 5 mg Oral Tablet Take 1 Tab by mouth every six hours as n eeded. POTASSIUM OR Take 2 tablets daily. tazarotene (TAZORAC) 0.05 % Topical Cream by Topical route once daily in the evening. 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 alert, oriented skin warm and dry BP 140/89 | Pulse 63 | Ht 162.6 cm (5' 4") | Wt 86.728 kg (191 lb 3.2 oz) | BMI 32.82 kg/(m ^2) Head and neck: normocephalic, eyes present, oral mucous membranes moist, teeth present, no adenopathy,no carotid bruits. Chest: clear to auscultation in all lung pandya. Heart: regular sinus rhythm without murmur. The heart is not enlarged. ABD: soft, non tender, bowel sounds active, liver not enlarged, no masses palpable. surgic al scars, no flank pain Legs: warm, dry, well perfused, no edema, , IMP; renal stones plan: right percutaneous ultrasonic lithotripsy The surgical technique of the percutaneous procedure was discussed at length. We discusse d the <5% risk of bleeding enough to require transfusion and the risk of infection. The patient is aware of the remote risk of injuries to organs adjacent to the kidney, such as colon, spleen, liver, or nerves, and that there is also a remote risk of enough damage to th e kidney that it may require removal or other procedures to stop bleeding. I also discussed the risk of chest entry that may require placing a chest tube to drain off air, fluid, bloo d, or all three. I also mentioned the need for a ureteral stent that would be left in place for up to several weeks and that it must be removed by me or the referring urologist. I dic ussed the possibility of a second percutaneous ultrasonic lithotripsy to remove any residual stones or the need for follow shock wave lithotripsy to any residual stones. The need to l eave a tube in the kidney through the back was also discussed. The patient had no questions about these or other risks. Renato Chow MD, FACS ana, VAUGHN Wright - 02/28 3:56 PM PST Review of Systems Constitutional: Positive for fever and chills. HENT: Positive for headaches. Cardiovascular: History of heart attack Genitourinary: Positive for dysuria, hematuria and flank pain. Inability to urinate Bladder infections Musculoskeletal: Positive for back pain. Gout Bone fractures Skin: Positive for itching and rash. Neurological: Positive for dizziness. Endo/Heme/Allergies: Positive for polydipsia. All other systems reviewed and are negative. Physical Exam Adriana Mustafa MA - 03/11 3:51 PM PSTUA done per verbal order of Dr. Chow for kidney stone. Read back done. El ectronically signed by Adriana Cortez MA at 03/13/2011 8:12 AM PSTdocumented in this encounte r Plan of Treatment [...] | CULTURE, URINE BACTI | Routin | 03/11/2011 | Kidney stone | Results for this | | | e | 4:38 PM | | procedure are in the | | | | PST | | results section. | + +--------+ + + + | UA DIPSTICK 10 DIP | Routin | 03/11/2011 | Kidney stone | Results for this | | W/O MICRO | e | 4:02 PM | | procedure are in the | | (AUTOMATED), POC | | PST | | results section. | + +--------+ + + + documented in this encounter Results [facility] - BASIC METABOLIC SET (03/11/2011 5:13 PM [...] + + + | Test performed by: [facility] | [facility] | | Outpatient Lab [facility] [address], [place] [address] | DEPARTMENT OF | | | PATHOLOGY | + + + + + + + + | Performing | Address | City/State/Zipcode | Phone Number | | Organization | | | | + + + + + | [facility] DEPARTMENT OF | [address] | [place] [address] | | | PATHOLOGY | [address] [...] + + + | Test performed by: [facility] | [facility] | | Outpatient Lab [facility] [address], [place] [address] | DEPARTMENT OF | | Sent to [facility]. | PATHOLOGY | + + + + + + + + | Performing | Address | City/State/Zipcode | Phone Number | | Organization | | | | + + + + + | [facility] DEPARTMENT OF | [address] | [place] [address] | | | PATHOLOGY | [address] | | | + + + + + 12 LEAD ECG (03/11/2011 4:58 PM PST) + + + + + + | Component | Value | Ref Range | Performed | Pathologist | | | | | At | Signature | + + + + + + | VENTRICULAR | 62 | BPM | [facility] DEPT | | | RATE | | [...] view image for the detailed interpretation from [employer] results. | CARDIOLOGY | + + + + + + + + | Performing | Address | City/State/Zipcode | Phone Number | | Organization | | | | + + + + + | [facility] DEPT OF | [address] | [place], [place] | | | CARDIOLOGY | [address] | [address] | | + + + + + CULTURE, URINE BACTI (03/11/2011 4:38 PM PST) + + + + + + | Component | Value | Ref Range | Performed | Pathologist | | | | | At | Signature | + + + + + + | SOURCE BODY | Voided Urine | | [facility] | | | SITE | sensitivities | | [facility] | | | | | | LAB-MICRO | | + + + + + + | CULTURE | Urine Culture | | [facility] | | | RESULT | | | [facility] | | | | Source...............: | | LAB-MICRO | | | | Voided Urine | | | | | | sensitivities | | | | | | Culture: | | | | | | Multiple | | | | | | organisms are present | | | | | | indicating probable | | | | | | contamination | | | | | | or colonization not | | | | | | related to | | | | | | infection. | | | | | | Further work-up of these | | | | | | organisms may result in | | | | | | clinically | | | | | | misleading information | | | | | | due to the low | | | | | | numbers and/or mixture | | | | | | of organisms present. | | | | | | Recollection is | | | | | | suggested if clinically | | | | | | indicated. Final | | | | | | Report | | | | | | Resulted: 12/ | | | | | | 14/11 | | | | | | [facility] | | | | | | ([address] [facility]) | | | | | | [place] | | | | | | [facility] | | | | | | [address] | | | | | | [address] | | | | | | [place] | | | | | | , [place] [address] | | | | + + + + + + + + | Specimen | + + | Urine - Voided | + + + + + + + | Performing | Address | City/State/Zipcode | Phone Number | | Organization | | | | + + + + + | [facility] | [address] | [place] [address] | | | LAB-MICRO | | | | + + + + + UA DIPSTICK 10 DIP W/O MICRO (AUTOMATED), POC (03/11/2011 4:02 PM PST) + +--------+ + + + | Component | Value | Ref Range | Performed | Pathologist | | | | | At | Signature | + +--------+ + + + | COLOR (UA | Yudith | | [facility], | | | DIP), POC | | | POINT OF | | | | | | CARE TESTS | | + +--------+ + + + | APPEARANCE | Cloudy | | [facility], | | | (UA DIP), | | | POINT OF | | | POC | | | CARE TESTS | | + +--------+ + + + | LEUKOCYTES | Large | Negative | [facility], | | | (UA DIP), | | | POINT OF | | | POC | | | CARE TESTS | | + +--------+ + + + | NITRITES | Neg | Negative | [facility], | | | (UA DIP), | | | POINT OF | | | POC | | | CARE TESTS | | + +--------+ + + + | UROBILINOGE | 0.2 | 0.2 CATHI | [facility], | | | N (UA DIP), | | UNITS | POINT OF | | | POC | | | CARE TESTS | | + +--------+ + + + | PROTEIN (UA | 100 | Negative to | [facility], | | | DIP), POC | | Trace | POINT OF | | | | | | CARE TESTS | | + +--------+ + + + | PH (UA | 5.5 | 5 - 8 | [facility], | | | DIP), POC | | | POINT OF | | | | | | CARE TESTS | | + +--------+ + + + | BLOOD (UA | Large | Negative | [facility], | | | DIP), POC | | | POINT OF | | | | | | CARE TESTS | | + +--------+ + + + | SPECIFIC | 1.020 | 1.005 - 1.03 | [facility], | | | GRAVITY (UA | | | POINT OF | | | DIP), POC | | | CARE TESTS | | + +--------+ + + + | KETONES (UA | Neg | Negative | [facility], | | | DIP), POC | | | POINT OF | | | | | | CARE TESTS | | + +--------+ + + + | BILIRUBIN | Neg | Negative | [facility], | | | (UA DIP), | | | POINT OF | | | POC | | | CARE TESTS | | + +--------+ + + + | GLUCOSE (UA | Neg | Negative to | [facility], | | | DIP), POC | | Trace mg/dL | POINT OF | | | | | | CARE TESTS | | + +--------+ + + + + + | Specimen | + + | Urine | + + + + + + + | Performing | Address | City/State/Zipcode | Phone Number | | Organization | | | | + + + + + | [facility] | [address] | [place] [address] | | | OF CARE TESTS | | | | + + + + + documented in this encounter Visit Diagnoses + + | Diagnosis | + + | Kidney stone - Primary Calculus of kidney | + + | Other specified pre-operative examination | + + documented in this encounter
--- OUTSIDE RECORDS SUMMARY | ~2018-08-20 | XMS | Encounter Summary ---
Demographics + + + | Address | [address] | | | [place] [address] | + + + | Home Phone | | + + + | Preferred Language | Unknown | + + + | Marital Status | | + + + | Anabaptist Affiliation | PRO | + + + | Race | White | + + + | Ethnic Group | Not or | + + + Author + + + | Author | [facility] | + + + | Organization | [facility] | + + + | Address | Unknown | + + + | Phone | Unavailable | + + + Support + + + + + | Name | Relationship | Address | Phone | + + + + + | Hector Mack | ECON | [address] | | | | | [place] | | | | | [address] | | + + + + + Care Team Providers + +------+ + | Care Interactive Designer Name | Role | Phone | [...] | Registratio | [address] Mu[address] | [address] | | | | n | [facility] Mailcode: | [place], [place] | | | | | [address] [place], [place] | [address] | | | | | [address] | [phone] | | | | | [phone] | | | +--------+ + + + [...]
--- OUTSIDE RECORDS SUMMARY | ~2018-08-20 | XMS | Encounter Summary ---
Demographics + + + | Address | [address] | | | [place] [address] | + + + | Home Phone [...] [place] | | | | | [address] | | + + + + + Care Team Providers + +------+ + | Care Coat Fitter Name | Role | Phone | + [...] | | | | | Procedures | [address] | [place] | | | | | CONSULT TO | [facility] | [facility] | | | | | [place] | [place], [place] | CHILDREN | | | | | | [address] | [address] | | | | | | Phone: | DEACON BYRNE | | | | | | [phone] | [place], | | | | | | Fax: | [place] [address] | | | | | | [phone] | Phone: | | | | | | | [phone] | | | | | | | Fax: | | | | | | | [phone] | +--------+--------+ + + + + Reason [...] Dx) | | | | Surgery at [facility] [address] | [place], [place] | | | | | [address] | [address] | | | | | Code: [facility] | [phone] | | | | | for Health and | | | | | | [facility] Floor | | | | | | [place], [place] | | | | | | [address] | | | | | | [phone] | | | +--------+---------+ + + + [...] with Dr. Vasquez. She has seen a employment office clerk without any change in her rash. She [...] known rash that was seen by a employment office clerk, per patient. There was no specific treatab [...]
--- OUTSIDE RECORDS SUMMARY | ~2018-08-20 | XMS | Encounter Summary ---
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 [address] | CAD (Coronary Artery | | 2008 | Visit | Medicine Clinic at | [facility] [address] | Disease); Gout; DM | | | | [facility] 4th Floor [address] | [place] [address] | Circ Dis Type II, | | | | [address] Mail | | Uncontrolled (HCC); | | | | Code: [facility] Center | | Obesity; Achalasia; | | | | for Health and | | Panniculitis; | | | | Healing,4th Floor | | Bruise; Other | | | | [place], [place] | | Specified | | | | [address] | | Pre-Operative | | | | [phone] | | Examination | +--------+---------+ + + [...] | + + +--------+ + + | ME COLLECTION VENOUS | Procedures | Routin | [...] uncontrolled(250.72) | | | | | | ([facility]) Obesity | | | | | [...] + + + + + | [facility] | [address] [facility] | [place] [address] | | | PATHOLOGY | [address] | | | + + + + + | [facility] | [address] [place] [address] | [place] [address] | | | PATHOLOGY | [address] [...] + + + + + | [facility] | [address] [facility] [address] | [place] [address] | | | PATHOLOGY | [address] | | | + + + + + | [facility] | [address] [facility] | [place] [address] | | | PATHOLOGY | [address] | | | + + + + + INR (09/07/2008 3:43 PM PDT) + + + + + + | Component | Value | Ref Range | Performed | Pathologist | | | | | At | Signature | + + + + + + | INR | 1.01Comment: | 0.90 - 1.20 INR | [facility] | | | | INR | | [...] + + + + + | [facility] DEPARTMENT OF | [address] | [place] [address] | | | PATHOLOGY | [address] | | | + + + + + | [facility] DEPARTMENT OF | [address] | [place] [address] | | | PATHOLOGY | [address] [...] (H) | 60 - 99 mg/dL | [facility] | | | PLASMA | | | [...] Performed At | + + + | [id number] Estimated GFR > 60 mL/min/1.73 sq m if non- | [facility] | | [facility] [place] [address] Estimated GFR > 60 mL/min/1.73 sq m if | [facility] | | [facility] [place] GFR is estimated using the MDRD equation [...] + + + + + | [facility] DEPARTMENT | [address] | [place] [address] | | | PATHOLOGY | [address] | | | + + + + + | [facility] DEPARTMENT OF | [address] [facility] | [place] [address] | | | PATHOLOGY | [address] | | | + + + + + 12 LEAD ECG (09/07/2008 3:38 PM PDT) + + + + + + | Component | Value | Ref Range | Performed | Pathologist | | | | | At | Signature | + + + + + + | VENTRICULAR | 54 | BPM | [facility] DEPT | | | RATE | | [...] | | | | | SHAKIRA GARCIA ([id number]) | | | | | | on [...] view image for the detailed interpretation from [employer] results. | CARDIOLOGY | | | | + + + + + + + + | Performing | Address | City/State/Zipcode | Phone Number | | Organization | | | | + + + + + | [facility] DEPT OF | [address] [facility] | [place], [place] | | | CARDIOLOGY | [address] | [address] | | + + + + + | [facility] DEPT OF | [address] [facility] | [place], [place] | | | CARDIOLOGY | [address] | [address] | | + + + + + documented in this encounter Visit Diagnoses + + | Diagnosis | + + | CAD (coronary artery disease) Coronary atherosclerosis of unspecified type of vessel, | | [place] or graft | + + | Gout [...]
--- OUTSIDE RECORDS SUMMARY | ~2018-08-20 | XMS | Encounter Summary ---
Demographics + + + | Address | [address] | | | [place] [address] | + + + | Home Phone | | + + + | Preferred Language | Unknown | + + + | Marital Status | | + + + | Latter-Day Affiliation | PRO | + + + | Race | White | + + + | Ethnic Group | Not or | + + + Author + + + | Author | [facility] | + + + | Organization | [facility] | + + + | Address | Unknown | + + + | Phone | Unavailable | + + + Support + + + + + | Name | Relationship | Address | Phone | + + + + + | Hector Mack | ECON | [address] | | | | | [place] | | | | | [address] | | + + + + + Care Team Providers + +------+ + | Care Computer Clerk Name | Role | Phone | [...] | MD [address] | ([place] ) | | | | Mail Code: CH10U | [place], [place] | | | | | [facility] | [address] | | | | | and Sonal, | [phone] | | | | | Floor [place], [place] | | | | | | [address] | | | | | | [phone] | | | +--------+--------+ + + + [...]
--- OUTSIDE RECORDS SUMMARY | ~2018-08-20 | XMS | Encounter Summary ---
Demographics + + + | Address | [address] | | | [place] [address] | + + + | Home Phone | | + + + | Preferred Language | Unknown | + + + | Marital Status | | + + + | Shinto Affiliation | PRO | + + + | Race | White | + + + | Ethnic Group | Not or | + + + Author + + + | Author | [facility] | + + + | Organization | [facility] | + + + | Address | Unknown | + + + | Phone | Unavailable | + + + Support + + + + + | Name | Relationship | Address | Phone | + + + + + | Hector Mack | ECON | [address] | | | | | [place] | | | | | [address] | | + + + + + Care Team Providers + +------+ + | Care Manga Artist Name | Role | Phone | [...] | | | Mail Code: CH10U | [place], [place] | | | | | [facility] | [address] | | | | | and , | [phone] | | | | | Floor [place] | | | | | | [address] | | | | | | [phone] | | | +--------+ + + + [...]
--- OUTSIDE RECORDS SUMMARY | ~2018-08-20 | XMS | Encounter Summary ---
Demographics + + + | Address | [address] | | | [place] [address] | + + + | Home Phone | | + + + | Preferred Language | Unknown | + + + | Marital Status | | + + + | Cheondoism Affiliation | PRO | + + + | Race | White | + + + | Ethnic Group | Not or | + + + Author + + + | Author | [facility] | + + + | Organization | [facility] | + + + | Address | Unknown | + + + | Phone | Unavailable | + + + Support + + + + + | Name | Relationship | Address | Phone | + + + + + | Hector Mack | ECON | [address] | | | | | [place] | | | | | [address] | | + + + + + Care Team Providers + +------+ + | Care Reception Agent Name | Role | Phone | + [...] | | | Mail Code: CH10U | [place], [place] | | | | | [facility] | [address] | | | | | and Healing, | [phone] | | | | | Floor [place], [place] | | | | | | [address] | | | | | | [phone] | | | +--------+---------+ + + + [...] [facility]AS | [address] | [place], [place] | | | [place], POINT OF CARE | [address] | [address] | | | TESTS | | | | + + + + + | [facility]-POINT [facility] CARE | [address] | [place], [place] | | | TESTS | [address] | [address] | | + + + + + documented in this encounter Visit Diagnoses + + | Diagnosis | + + | Urolithiasis - Primary Urinary calculus, unspecified | + + documented in this encounter"
--- OUTSIDE RECORDS SUMMARY | ~2018-08-20 | XMS | Encounter Summary ---
Demographics + + + | Address | [address] | | | [place] [address] | + + + | Home Phone [...] | Author | [facility] | + + + | Organization | [facility] | + + + | Address | Unknown | + + + | Phone | Unavailable | + + + Support + + + + + | Name | Relationship | Address | Phone | + + + + + | Hector Mack | ECON | [address] | | | | | [place] | | | | | [address] | | + + + + + Care Team Providers + +------+ + | Care Cnc Wood Lathe Operator Name | Role | Phone | + +------+ + | Tuan Chan MD | PCP | | + +------+ + Encounter Details +--------+ + + + + | Date | Type | Department | Care Team | Description | +--------+ + + + + | 05/30/ | Hospital | Registration [address] | Wes Wolff MD | | | 2005 | Activity | [address] | [address] | | | | | [facility] Mailcode: | [place], [place] | | | | | [address] [place], [place] | [address] | | | | | [address] | [phone] | | | | | [phone] | | | +--------+ + + + [...]
--- OUTSIDE RECORDS SUMMARY | ~2018-08-20 | XMS | Encounter Summary ---
Demographics + + + | Address | [address] | | | [place] [address] | + + + | Home Phone [...] [place] | | | | | [address] | | + + + + + Care Team Providers + +------+ + | Care Leather Stripping Machine Operator Name | Role | Phone [...] 06/02/ | Office | Preoperative | 1, [facility] Shrimp Trawler [address] | Other Specified | | 2007 | Visit | Medicine Clinic at | [facility] [address] | Pre-Operative | | | | [facility] 4th Floor [address] | [place] [address] | Examination (Primary | | | | [address] | | Dx) | | | | Code: [address] | | | | | | for Health and | | | | | | Healing,4th Floor | | | | | | [place], [place] | | | | | | [address] | | | | | | [phone] | | | +--------+---------+ + + + [...] + + documented in this encounter Progress Darrell Mike RN - 06/03/2007 3:34 PM PSTSee Scanned [...] + + + | [facility] DEPARTMENT OF | [address] | [place] [address] | | | PATHOLOGY | [address] | | | + + + + + | [facility] DEPARTMENT OF | [address] | [place] [address] | | | PATHOLOGY | [address] [...] Performed At | + + + | 212001 Estimated GFR = 48 mL/min/1.73 sq m if non- | [facility] | | 132826 Estimated GFR = 59 mL/min/1.73 sq m [...] + + + + | [facility] | [address] | [place] [address] | | | PATHOLOGY | [address] | | | + + + + + | [facility] | [address] | [place] [address] | | | PATHOLOGY | [address] [...] + | LINK TO | | | [facility] DEPT | | | [facility] | | | OF | | | (ECG | | | CARDIOLOGY | | | VIEWER) | | | | | + + + + + + + + | Specimen | + + | | + + + + + | Narrative | Performed At | + + + | Please click | [facility] DEPT OF | | on view image for the detailed interpretation from [employer] results. | CARDIOLOGY | | | | + + + + + + + + | Performing | Address | City/State/Zipcode | Phone Number | | Organization | | | | + + + + + | [facility] DEPT OF | [address] | [place], [place] | | | CARDIOLOGY | [address] | [address] | | + + + + + | [facility] DEPT OF | [address] | [place], [place] | | | CARDIOLOGY | [address] | [address] | | + + + + + documented in this encounter Visit Diagnoses + + | Diagnosis | + + | Other specified pre-operative examination - Primary | + + documented in this encounter
--- OUTSIDE RECORDS SUMMARY | ~2018-08-20 | XMS | Encounter Summary ---
Demographics + + + | Address | [address] [place] [address] | | | [place] [address] | + + + | Home Phone [...] [place] | | | | | [address] | | + + + + + Care Team Providers + +------+ + | Care Investigative Analyst Name | Role | Phone | [...] | Office | Digestive Health | Herberth Ayaal, | Obesity (Primary Dx) | | 2006 | Visit | Center [address] | | | | | [address] Mailcode: | | | | | | [facility] | | | | | | Health and Healing, | | | | | | 6th floor [place], | | | | | | [place] [address] | | | | | | [phone] | | | +--------+---------+ + + + [...]
--- OUTSIDE RECORDS SUMMARY | ~2018-08-20 | XMS | Encounter Summary ---
Demographics + + + | Address | [address] | | | [place] [address] | + + + | Home Phone | | + + + | Preferred Language | Unknown | + + + | Marital Status | | + + + | Nondenominational Affiliation | PRO | + + + | Race | White | + + + | Ethnic Group | Not or | + + + Author + + + | Author | [facility] | + + + | Organization | [facility] | + + + | Address | Unknown | + + + | Phone | Unavailable | + + + Support + + + + + | Name | Relationship | Address | Phone | + + + + + | Hector Mack | ECON | [address] | | | | | [place] | | | | | [address] | | + + + + + Care Team Providers + +------+ + | Care Buyer Liaison Name | Role | Phone | + [...] 2006 | Visit | Center [address] | | | | | | [address] Mailcode: | | | | | | [facility] for | | | | | | Health and Healing, | | | | | | 6th floor [place], | | | | | | [place] [address] | | | | | | [phone] | | | +--------+---------+ + + + [...] Performed At | + + + | [id number] Estimated GFR = 60 mL/min/1.73 sq m if non- | [facility] | | 442174 Estimated GFR > 60 mL/min/1.73 sq m [...] | + + + + + | [facility] DEPARTMENT OF | [address] | [place] [address] | | | PATHOLOGY | [address] | | | + + + + + | [facility] DEPARTMENT OF | [address] | [place] [address] | | | PATHOLOGY | [address] [...] MEDICAL CENTER | [address] | [place] [address] | | | PATHOLOGY | [address] | | | + + + + + | [facility] | [address] | [place] [address] | | | PATHOLOGY | [address] | | | + + + + + documented in this encounter Visit Diagnoses + + | Diagnosis | + + | Obesity - Primary Obesity, unspecified | + + documented in this encounter
--- OUTSIDE RECORDS SUMMARY | ~2018-08-20 | XMS | Encounter Summary ---
Demographics + + + | Address | [address] [address] [facility] [address] | | | [place] [address] | + + + | Home Phone [...] [place] | | | | | [address] | | + + + + + Care Team Providers + +------+ + | Care Audio Visual Technician Name | Role | Phone | + +------+ + | Tuan Chan MD | PCP | | + +------+ + Encounter Details +--------+ + + + + | Date | Type | Department | Care Team | Description | +--------+ + + + + | 02/06/ | Documentati | Anesthesiology | Unknown . | | | 2005 | on | [address] | | | | | | [place] | | | | | | [place], [place] | | | | | | [address] | | | +--------+ + + + [...] | + + | 02/06/2006 11:10 AM [facility] Anesthesia PostOp Report | | | | Patient: GERMAINE CARIAS [facility] Rec: [id number] Sex F Bdate: 1945 | | Date/Time Data | | Entered Into [facility] | | Anesth PostOp | | Surgery Date [id number] 02/06/06 11:10 | | Anesthesiologist OLEG ASCENCIO 02/06/06 11:10 | | Resident Anesthesiolog JULIEN FRYE 02/06/06 11:10 | | | + + documented in this encounter Visit Diagnoses Not on filedocumented in this encounter"
--- OUTSIDE RECORDS SUMMARY | ~2018-08-20 | XMS | Encounter Summary ---
Demographics + + + | Address | [address] | | | [place] [address] | + + + | Home Phone [...] + + + | Author | [facility] | + + + | Organization | [facility] | + + + | Address | Unknown | + + + | Phone | Unavailable | + + + Support + + + + + | Name | Relationship | Address | Phone | + + + + + | Hector Mack | ECON | [address] | | | | | [place] | | | | | [address] | | + + + + + Care Team Providers + +------+ + | Care Distillery Supervisor Name | Role | Phone | [...] | | | Mail Code: CH10U | [place], [place] | | | | | [facility] | [address] | | | | | and Healing, | [phone] | | | | | Floor [place], [place] | | | | | | [address] | | | | | | [phone] | | | +--------+---------+ + + + [...] Resident Division of Urology and Renal Transplantation [facility] oe Hdez - 10/19/2007 1:51 PM [...] Lab) | | | | | | [place] | | | | | | [facility] | | | | | | [address] | | | | [address] | | | | | | [place] | | | | | | , [place] [address]: | | | | | | Test performed at | | | | | | [facility] | | | | | | [facility]. | | | | + + + + + + + + | Specimen | + + | Urine - Urine | + + + + + + + | Performing | Address | City/State/Zipcode | Phone Number | | Organization | | | | + + + + + | [facility] | [address] | [place] [address] | | | LAB-MICRO | | | [...] | [facility] | [address] | [place], [place] | | | [place] POINT OF CARE | [address] | [address] | | | TESTS | | | | + + + + + | [facility] CARE | [address] | [place], [place] | | | TESTS | [address] | [address] | | + + + + + documented in this encounter Visit Diagnoses + + | Diagnosis | + + | Urolithiasis - Primary Urinary calculus, unspecified | + + documented in this encounter"
--- OUTSIDE RECORDS SUMMARY | ~2018-08-20 | XMS | Encounter Summary ---
Demographics + + + | Address | [address] | | | [place] [address] | + + + | Home Phone | | + + + | Preferred Language | Unknown | + + + | Marital Status | | + + + | Pentecostal Affiliation | PRO | + + + [...] [place] | | | | | [address] | | + + + + + Care Team Providers + +------+ + | Care Tunneling Machine Operator Name | Role | Phone [...] | 2008 | Only | [facility] [place] [address] | ,PhD Gloria | | | | | Floor [address] | Allergy Asthma | | | | | [place] Mail Code: | Dermatology 9495 | | | | | [facility] | [facility] | | | | | Health and Healing, | [place] [address] | | | | | 16 floor | [phone] | | | | | [place], [place] | | | | | | [address] | | | | | | [phone] | | | +--------+ + + + [...] | + +--------+ + + + | DERMATOPATHOLOGY(WET Routin | 08/05/2008 | | Results for this | | [facility]) | e | | | procedure are in the | | | | | | results section. | + +--------+ + + + documented in this encounter Results DERMATOPATHOLOGY(WET MOUNT) (08/05/2008) + + + + + + | Component | Value | Ref Range | Performed | Pathologist | | | | | At | Signature | + + + + + + | DERMATOPATH | SOURCE OF SPECIMEN:A | | | | | OLOGY(WET | FIRST TISSUE LEVEL | | | | | MNT) | IV [id number] | | | | | | DESCRIPTION:Punch bx x3; | | | | | | Mid back, Rt. groin, | | | | | | central chest; 49 year | | | | | | h/o | | | | | | undiagnosedrash. Eryt | | | | | | hematous, eroded papules | | | | | | and plaques in groin, | | | | | | under | | | | | | breasts,armpits. Hype | | | | | | rkeratotic hung papules | | | | | | on back. flat topped | | | | | | papules on palmsand | | | | | | dorsal hands. Positive | | | | | | papules on hard palate; | | | | | | Darier's!GROSS | | | | | | [...] | | | | | 0.5cm,that is | | | | | | bisected. The second | | | | | | measuring 0.4 x 0.2cm, | | | | | | that is inked blackand | | | | | | bisected. The third | | | | | | measuring 0.4 x 0.4cm, | | | | | | that is inked green | | | | | | andbisected. all | | | | | | specimens are entirely | | | | | | submitted in one | | | | | | cassette.MICROSCOPIC | | | | | | [...] Chey/Dermatopathology | | | | | | FellowClhiral Collier, | | | | | | Chey Chavarria / | | | | | | Dermatopathologist.Gustavo | | | | | | ring | | | | | | Diagnostician: Nadira | | | | | | jose Collier Jr., | | | | | [...] + + + | [facility] | [address] | [place] [address] | | | DERMATOPATHOLOGY | [address] | | | + + + + + documented in this encounter Visit Diagnoses Not on filedocumented in this encounter"
--- OUTSIDE RECORDS SUMMARY | ~2018-08-20 | XMS | Encounter Summary ---
Demographics + + + | Address | [address] | | | [place] [address] | + + + | Home Phone | | + + + | Preferred Language | Unknown | + + + | Marital Status | | + + + | Yarsanism Affiliation | PRO | + + + | Race | White | + + + | Ethnic Group | Not or | + + + Author + + + | Author | [facility] | + + + | Organization | [facility] | + + + | Address | Unknown | + + + | Phone | Unavailable | + + + Support + + + + + | Name | Relationship | Address | Phone | + + + + + | Hector Mack | ECON | [address] | | | | | [place] | | | | | [address] | | + + + + + Care Team Providers + +------+ + | Care Contact Assembler Name | Role | Phone | [...] Isaiah | | | | | at [facility] | [facility] | | | | | [address] | [place] [address] | | | | | [facility] | | | | | | Mailcode: OP12B Isaiah | | | | | | [facility] | | | | | | [place], | | | | | | [place] [address] | | | | | | [phone] | | | +--------+ + + + [...] uncontrolled(250.72) | | | | | | ([facility]) Obesity | | | | | [...] | | | | | SHAKIRA GARCIA (1693) | | | | | | on [...] + + + | Please click | [facility] DEPT OF | | on view image for the detailed interpretation from [employer] results. | CARDIOLOGY | | | | + + + + + + + + | Performing | Address | City/State/Zipcode | Phone Number | | Organization | | | | + + + + + | [facility] DEPT OF | [address] | [place], [place] | | | CARDIOLOGY | [facility] | [address] | | + + + + + | [facility] DEPT OF | [address] | [place], [place] | | | CARDIOLOGY | [facility] | [address] | | + + + + + documented in this encounter Visit Diagnoses Not on filedocumented in this encounter
--- OUTSIDE RECORDS SUMMARY | ~2018-08-20 | XMS | Encounter Summary ---
Demographics + + + | Address | [address] | | | [place] [address] | + + + | Home Phone [...] [place] | | | | | [address] | | + + + + + Care Team Providers + +------+ + | Care Courtesy Driver Name | Role | Phone | [...] as of this encounter Progress Notes Interface, Technical Support Consultant In - 11/28/2005 2:08 AM PDT [id number] ARETHA RAE [id number] Clinic Date: 11/22/2005 Clinic: [facility] [...] conference presentation. Herberth Ayala M.D. Chelsie / [id number] / [id number] / [id number] / [id number] Electronically signed by Herberth Brambila 11-27-2005 02:01:34 PM documented i n this encounter Plan of Treatment Not on filedocumented as of this encounter Visit Diagnoses Not on filedocumented in this encounter"
--- OUTSIDE RECORDS SUMMARY | ~2018-08-20 | XMS | Encounter Summary ---
Demographics + + + | Address | [address] | | | [place] [address] | + + + | Home Phone | | + + + | Preferred Language | Unknown | + + + | Marital Status | | + + + | Holiness Affiliation | PRO | + + + | Race | White | + + + | Ethnic Group | Not or | + + + Author + + + | Author | [facility] | + + + | Organization | [facility] | + + + | Address | Unknown | + + + | Phone | Unavailable | + + + Support + + + + + | Name | Relationship | Address | Phone | + + + + + | Hector Mack | ECON | [address] | | | | | [place] | | | | | [address] | | + + + + + Care Team Providers + +------+ + | Care Marine Firer Name | Role | Phone | [...] (Primary Dx) | | 2006 | | Center [address] | | | | | | [address] Mailcode: | | | | | | [facility] | | | | | | Health and Healing, | | | | | | 6th floor [place], | | | | | | [place] [address] | | | | | | [phone] | | | +--------+ + + + [...] Performed At | + + + | [id number] Estimated GFR = 60 mL/min/1.73 sq m if non- | [facility] | | [id number] Estimated GFR > 60 mL/min/1.73 sq m [...] + + + + + | [facility] | [address] | [place] [address] | | | PATHOLOGY | [address] | | | + + + + + | [facility] DEPARTMENT OF | [address] | [place] [address] | | | PATHOLOGY | [address] [...] DEPARTMENT OF | [address] | [place] [address] | | | PATHOLOGY | [address] | | | + + + + + | [facility] | [address] | [place], [place] [address] | | | PATHOLOGY | [address] | | | + + + + + documented in this encounter Visit Diagnoses + + | Diagnosis | + + | Obesity - Primary Obesity, unspecified | + + documented in this encounter"
--- OUTSIDE RECORDS SUMMARY | ~2018-08-20 | XMS | Encounter Summary ---
Demographics + + + | Address | [address] | | | [place] [address] | + + + | Home Phone [...] [place] | | | | | [address] | | + + + + + Care Team Providers + +------+ + | Care Pharmacy Billing Adjudicator Name | Role | Phone | + [...] as of this encounter Progress Notes Interface, Farm Loan Inspector In - 07/27/2005 2:07 AM PDT [id number] 07/25/2005 07/25/2005 [id number] ARETHA RAE [address] [place] [address] or July 25, 2005 Tuan Chan M.D. [address] [place], [place] RE: GERMAINE CARIAS MR #: [id number] Dear Dr. Chan: Your patient Ms. Germaine Carias returned for an office visit at [facility] on , July 25, 2005. She, [...] this kind referral. Sincerely, Wes Wolff M.D. [facility] / [id number] / [id number] / [id number] / cc: Papi Johnson M.D. [facility] General Surgery documented i n this encounter Plan of Treatment Not on filedocumented as of this encounter Visit Diagnoses Not on filedocumented in this encounter"
--- OUTSIDE RECORDS SUMMARY | ~2018-08-20 | XMS | Encounter Summary ---
Demographics + + + | Address | [address] | | | [place] [address] | + + + | Home Phone [...] [place] | | | | | [address] | | + + + + + Care Team Providers + +------+ + | Care Animal Nursery Worker Name | Role | Phone | [...] Surgery | | Aysha Crow | Gen/Recon Chh | | | | | Panniculitis | [address] | [address] | | | | | Procedures | [address] | [address] | | | | | CONSULT TO | [place], [place] | Mail Code: | | | | | [place] EX[place] | [address] | [facility] | | | | | SKIN ABD [place] | | for Health | | | | | REDUCTION | | and Healing, | | | | | OF LARGE | | 5th Floor | | | | | BREAST | | [place], [place] | | | | | Procedure to | | [address] | | | | | be | | Phone: | | | | | performed: | | [phone] | | | | | breast | | | | | | | reduction | [...] | | | | | | | ([address]) and | | | | | | | Reduction of | | | | | | | large | | | | | | | breast | | | | | | | ([id number]) | | | +--------+--------+ + + + + Encounter Details +--------+---------+ + + + | Date | Type | Department | Care Team | Description | +--------+---------+ + + + | 02/18/ | Office | Plastic and | Gia Amin, | Panniculitis | | 2006 | Visit | Reconstructive | MD [address] | (Primary Dx) | | | | Surgery at [facility] [address] | [facility] [place] | | | | | [address] Mail | [address] | | | | | Code: [facility] | [phone] | | | | | for Health and | | | | | | Healing, 5th Floor | | | | | | [place], [place] | | | | | | [address] | | | | | | [phone] | | | +--------+---------+ + + + [...] 18 years ago Occupation: unemployed, lives in [place] Family History Problem Relation Heart Mother Diabetes [...] per side. Plan: --Patient will followup with radiophone operator, who will re-evaluate her rash prior to proceedi ng with breast surgery. Requested that derm forward their note to us. --Our financial sales associate will provide the patient with a key [...]
--- OUTSIDE RECORDS SUMMARY | ~2018-08-20 | XMS | Encounter Summary ---
Demographics + + + | Address | [address] | | | [place] [address] | + + + | Home Phone [...] [place] | | | | | [address] | | + + + + + Care Team Providers + +------+ + | Care Grain Farmer Name | Role | Phone | + [...] [address] | | | | | [place] Mailcode: | [place], [place] | | | | | [address] [place], [place] | [address] | | | | | [address] | [phone] | | | | | [phone] | | | +--------+ + + + [...]
--- OUTSIDE RECORDS SUMMARY | ~2018-08-20 | XMS | Encounter Summary ---
Demographics + + + | Address | [address] [place] [address] | | | [place] [address] | + + + | Home Phone [...] [place] | | | | | [address] | | + + + + + Care Team Providers + +------+ + | Care Cabin Crew Name | Role | Phone | + [...] | Registratio | [address] | [address] | | | | n | [facility] Mailcode: | [place], [place] | | | | | [address] [place], [place] | [address] | | | | | [address] | [phone] | | | | | [phone] | | | +--------+ + + + [...]
--- OUTSIDE RECORDS SUMMARY | ~2018-08-20 | XMS | Encounter Summary ---
Demographics + + + | Address | [address] | | | [place] [address] | + + + | Home Phone | | + + + | Preferred Language | Unknown | + + + | Marital Status | | + + + | Faith Affiliation | PRO | + + + | Race | White | + + + | Ethnic Group | Not or | + + + Author + + + | Author | [facility] | + + + | Organization | [facility] | + + + | Address | Unknown | + + + | Phone | Unavailable | + + + Support + + + + + | Name | Relationship | Address | Phone | + + + + + | Hector Mack | ECON | [address] | | | | | [place] | | | | | [address] | | + + + + + Care Team Providers + +------+ + | Care Real Property Appraiser Name | Role | Phone | + [...] | | | | | abdominal | [place], [place] | Mail Code: | | | | | cavity | [address] | [facility] | | | | | without | | for Health | | | | | mention of | | and Healing, | | | | | obstruction | | 5th Floor | | | | | or gangrene | | [place], [place] | | | | | | | [address] | | | | | Panniculitis | | Phone: | | | | | Procedures | | [phone] | | | | | REQUEST TO | | | | | | | SURGERY | | | | | | | HUMAN RESOURCES TALENT MANAGER | | | +--------+--------+ + + + [...] Hernia of | Aysha Crow, | [facility] [address] | | | | | unspecified | [address] | [address] | | | | | site of | [address] | [facility] | | | | | abdominal | [place], [place] | Road | | | | | cavity | [address] | Mailcode: | | | | | without | | [address] [facility] | | | | | mention of | | Hospital | | | | | obstruction | | [place], [place] | | | | | or gangrene | | [address] | | | | | Procedures | | Phone: | | | | | CT ABDOMEN | | [phone] | | | | | WWO CONTRAST | | Fax: | | | | | LTD | | [phone] | +--------+--------+ + + + + Reason [...] Panniculitis | | | | Surgery at [facility] [address] | | | | | | [address] Mail | | | | | | Code: [address] | | | | | | for Health and | | | | | | Healing, 5th Floor | | | | | | [place], [place] | | | | | | [address] | | | | | | [phone] | | | +--------+---------+ + + + [...] | | + +---------+ + + | [facility] DEPARTMENT OF | | | | [...]
--- OUTSIDE RECORDS SUMMARY | ~2018-08-20 | XMS | Encounter Summary ---
Demographics + + + | Address | [address] | | | [place] [address] | + + + | Home Phone [...] [place] | | | | | [address] | | + + + + + Care Team Providers + +------+ + | Care Golf Cart Assembler Name | Role | Phone | [...] [address] | | | | n | [facility] Mailcode: | Mary [address] [place], | | | | | [address] [place], [place] | [place] [address] | | | | | [address] | [phone] | | | | | [phone] | | | +--------+ + + + [...]
--- OUTSIDE RECORDS SUMMARY | ~2018-08-20 | XMS | Encounter Summary ---
Demographics + + + | Address | [address] [place] [address] | | | [place] [address] | + + + | Home Phone [...] [place] | | | | | [address] | | + + + + + Care Team Providers + +------+ + | Care Fuel Handler Name | Role | Phone | [...] | 2005 | Registratio | S Rikki Powell MD | | | | n | [facility] Mailcode: | | | | | | [address] [place], [place] | | | | | | [address] | | | | | | [phone] | | | +--------+ + + + [...] DEPARTMENT OF | [address] | [place] [address] | | | PATHOLOGY | [address] | | | + + + + + | [facility] DEPARTMENT OF | [address] | [place] [address] | | | PATHOLOGY | [address] [...] Performed At | + + + | [id number] Estimated GFR > 60 mL/min/1.73 sq m if non- | [facility] | | [id number] Estimated GFR > 60 mL/min/1.73 sq m [...] + | [facility] DEPARTMENT OF | [address] [facility] | [place] [address] | | | PATHOLOGY | [address] | | | + + + + + | [facility] DEPARTMENT OF | [address] [facility] | [place] [address] | | | PATHOLOGY | [address] [...] | + + + + + | [facility][1] | [address] [facility] [address] | [place] [address] | | | PATHOLOGY | [address] | | | + + + + + | [facility][1] | [address] [facility] [facility] | [place] [address] | | | PATHOLOGY | [address] | | | + + + + + documented in this encounter Visit Diagnoses Not on filedocumented in this encounter"
--- OUTSIDE RECORDS SUMMARY | ~2018-08-20 | XMS | Encounter Summary ---
Demographics + + + | Address | [address] [place] [address] | | | [place] [address] | + + + | Home Phone [...] [place] | | | | | [address] | | + + + + + Care Team Providers + +------+ + | Care Clam Shucking Machine Tender Name | Role | Phone [...] as of this encounter Progress Notes Interface, Lead Network Engineer In - 02/15/2006 2:34 AM [facility] [id number] ANTONIETTAKRZYSZTOF RAE [id number] Referred From and Faxed To: Tim Paula [...] 4:01. Length of Visit: Sixty-one minutes of [id number] consult with the patient and her friend [...] with myself, dietitian post-surgery. She is from [place]. This visit can be scheduled when she has a followup appointment with her surgeon here at [facility] Patient's Comprehension: This visit was [...] friend Lulu. Caitlyn Chery R.D., L.D. / [id number] / [id number] / [id number] / cc: Chey Milan A.NSonyPSony Electronically signed by Caitlyn Chery 02-14-2006 01:37:50 PM documented i n this encounter Plan of Treatment Not on filedocumented as of this encounter Visit Diagnoses Not on filedocumented in this encounter"
--- OUTSIDE RECORDS SUMMARY | ~2018-08-20 | XMS | Encounter Summary ---
Demographics + + + | Address | [address] | | | [place] [address] | + + + | Home Phone [...] [place] | | | | | [address] | | + + + + + Care Team Providers + +------+ + | Care Team Leader Name | Role | Phone | + [...] | | | | | | [address] | | | | | | | 4 | | | | | | | [facility] | | | | | | | [facility] | | | | | | | [facility] | | | | | | | ([facility]) | | | | | | | [place], | | | | | | | [place] [address] | | | | | | | Phone: | | | | | | | [phone] | | | | | | | Fax: | | | | | | | [phone] | +--------+--------+ + + + + Encounter Details +--------+ + + + + | Date | Type | Department | Care Team | Description | +--------+ + + + + | 09/08/ | Hospital | [facility] [address] | Noe Hdez, | | | 2008 | Encounter | [address] | MD [address] | | | | | [facility] | [place], [place] | | | | | [facility] | [address] | | | | | ([facility]) | [phone] | | | | | [place] [address] | | | | | | [phone] | | | +--------+ + + + [...] urinate. HAVING A URETERAL STENT: Call: [facility] Urology/Renal Transplant at If you have any [...] weeks Follow Up Tests: (Tests at [facility] must be entered into [facility]) Ureteral stent removal Discharge Patient [...] What to Expect and How to Manage INTRODUCTIONIn patients who have, or might have, an obstruction (blockage) of the kidney, a n internal drainage tube called a stent is commonly placed in the ureter, the tube bet ween the kidney and the bladder. This is placed there in order to prevent or temporarily rel ieve the obstruction. The booklet contains general information about ureteric stents, explai ns the benefits to be derived from them and mentions some of the drawbacks that patients mary ht experience. Your urologist is planning to use such [...] PART I: THE URINARY SYSTEM AND URETERIC STENTSTHE URINARY SYSTEM AND THE URETER The kidneys [...] (water passage). HOW DOES A KIDNEY BECOME OBSTRUCTED?Common causes of obstruction of the kidneys and [...] to you. WHAT ARE THE EFFECTS OF OBSTRUCTION?Whenever there is an obstruction, pressure builds up be hind the kidney. Due to high pressure, the function of the kidneys starts to suffer over a p eriod of weeks. The obstruction can also cause stagnation of the urine, which can lead to in fection and further damage to the kidneys. It is, therefore, important to relieve or prevent obstruction of the kidneys. TEMPORARY RELIEF OF THE OBSTRUCTIONIt is not always possible to identify what has caused an obstruction and to treat this immediately. It is therefore essential to relieve the obstruc tion on a temporary basis before treatment is carried out. Also, following an operation on the ureters, it takes time for the ureters to heal and a te mporary measure to prevent obstruction becomes essential. This is commonly achieved by inser ting a ureteric stent to make a channel for the urine to pass and allow the kidneys to drain . WHAT IS A URETERIC STENT?A ureteric stent is a specially designed hollow tube, made of a fl exible plastic material that is placed in the ureter. The length of the stents used in adult patients varies between 24 to 30 cm. Although there are different types of stents, all of t hem serve the same purpose. HOW DOES A STENT STAY IN PLACE?The stents are designed to stay in the urinary system by hav ing both the ends coiled. The top end coils in the kidney and the lower end coils inside the bladder to prevent its displacement. The stents are flexible enough to withstand various nolan dy movements. HOW IS A URETERIC STENT PUT IN PLACE?Usually a stent is placed under a general anaesthetic using a special telescope (cystoscope) which is passed through the urethra into the bladder. The stents are then placed in the ureter and kidney via the opening of the ureter in the bl adder. The stent may be inserted as an additional part of an operation on the ureter and kid naveen (e.g. ureteroscopy). Occasionally they are placed from the kidney down to the bladder us ing special x-ray techniques. The correct position of a stent is checked by taking a x-ray. HOW LONG WILL THE STENT STAY IN THE BODY?There is no hard and fast rule about this. The pooja nt has to be kept in place as long as necessary, i.e. until the obstruction is relieved. Thi s depends on the cause of obstruction and [...] remain in place. HOW IS A STENT REMOVED?This is a short procedure and consists of removal of the stent using a flexible cystoscope, usually under local anaesthesia. Sometimes a stent can be left with a thread attached to its lower end that stays outside the body through the urethra. Doctors can remove such stents by just pulling this thread. IS THERE AN ALTERNATIVE OPTION TO THE USE OF A STENT?There is no simple alternative option. In some patients, a tube draining the urine to the outside called a nephrostomy tube , may be placed in the kidney. However, this involves carrying a urine collection bag appliance counselor d to your back, which requires proper care. If you need this treatment your urologist will explain in detail what is involved. PART 2: LIVING WITH A URETERIC STENT INTRODUCTIONUreteric stents are designed to allow people to lead as normal a life as possib le. However, they may not be without side effects. In placing a stent, there is a balance be tween its advantages in relieving the obstruction and any possible side effects. Most side e ffects are not a danger to your health or your kidneys, although they can be a nuisance. Bel ow, we have described all the possible side effects associated with a ureteric stent. WHAT ARE THE POSSIBLE SIDE EFFECTS ASSOCIATED WITH A STENT?Many patients do not experience problems with the stents. In the majority of the patients experiencing side effects they are minor and tolerable. However sometimes they can be moderate to severe in nature. Commonly noted side [...] ASSOCIATED WITH A STENT - CAN THEY IMPROVE?There is some evidence that some of the symptoms, such as pain while passing urine and blood in the urine, may impr ove with time. However, this remains unpredictable. It has been reported that around 20-70% of patients with stents experience one or more of these side effects. Medical science and the stent manufacturers are working to develop a stent that will cause the least possible side effects. CAN THE SIDE EFFECTS INTERFERE WITH MY DAY TO DAY LIFE?The stents are not expected to cause much disruption to your normal daily life. However, you may experience some side effects th at can cause some problems, either directly or indirectly. Let us look at this in relation [...] problems, you can discuss it with your sales relationship manager and colleagues so that possible temporary [...] STENT GET DISPLACED? WHAT OTHER COMPLICATIONS ARE POSSIBLE?Occasionally a stent may d evelop a crystal coating on its surface although this is not a significant problem. If left in place too long, a ureteral stent can become completely calcified requiring a more invasiv e procedure to remove it. For this reason it is critical to have your temporary stent remove d within 3 months. Very occasionally a stent may get displaced, usually slipping towards the bladder, and it may even fall out. If this happens, you should contact the urologist data integration developer for [employer]. IS THERE POSSIBILITY OF A URINARY TRACT INFECTION?The presence of a stent, along with the u nderlying kidney problem, makes it more likely that you could get a urinary tract infection. Some of the symptoms that you may experience if you get a urinary tract infection are raise d temperature, increased pain or discomfort in the kidney or bladder area, a burning sensati on while passing urine and feeling unwell. This usually requires treatment with antibiotics. WHAT CARE DO I NEED TO TAKE? It is essential that you drink at least 11/2 to 2 liters (a pproximately four pints) of fluids, mainly water, a [...] For medical emergencies, call 911. Call: [facility] Urology/Renal Transplant at If you have any [...] weeks Follow Up Tests: (Tests at [facility] must be entered into [employer]) Ureteral stent removal Discharge Patient To: Home Discharging Provider: GAUTAM TAVERAS MD Date Completed: 09/08/2008 [facility] After CYSTOSCOPY Follow the guidelines [...] from 8:00 4:30, call the Urology Clinic [phone]. After hours, weekend and holidays call the [facility] at [phone]. Ask for them to page your doctor. [...] | | | | | acid.Performed by [employer] | | | | | | [facility] | | | | | | [place] [address] | | | | | | [phone][employer]. | | | | | | Gume matthews, | | | | | | - [...] + + + + + | [facility] | [address] | [place] [address] | | | PATHOLOGY | [address] | | | + + + + + ANESTHESIA/SEDATION (09/08/2008 7:30 PM PDT) + + + | Narrative | Performed At | + + + | | | + + + + + | Procedure Note | + + | Freddie, Faculty - 09/08/2008 7:30 PM PDT | [...]
--- OUTSIDE RECORDS SUMMARY | ~2018-08-20 | XMS | Encounter Summary ---
Demographics + + + | Address | [address] | | | [place] [address] | + + + | Home [...] + + + | Author | [facility] | + + + | Organization | [facility] | + + + | Address | Unknown | + + + | Phone | Unavailable | + + + Support + + + + + | Name | Relationship | Address | Phone | + + + + + | Hector Mack | ECON | [address] | | | | | [place] | | | | | [address] | | + + + + + Care Team Providers + +------+ + | Care Mount Loader Name | Role | Phone | [...] | | | | | Surgery at [facility] [address] | [address] [place], [place] | | | | | [address] Mail | [address] | | | | | Code: [facility] Center | [phone] | | | | | for Health and | | | | | | Healing, 5th Floor | | | | | | [place], [place] | | | | | | [address] | | | | | | [phone] | | | +--------+---------+ + + + [...]
--- OUTSIDE RECORDS SUMMARY | ~2018-08-20 | XMS | Encounter Summary ---
Demographics + + + | Address | [address] [place] [address] | | | [place] [address] | + + + | Home Phone [...] + + + | Author | [facility] | + + + | Organization | [facility] | + + + | Address | Unknown | + + + | Phone | Unavailable | + + + Support + + + + + | Name | Relationship | Address | Phone | + + + + + | Hector Mack | ECON | [address] | | | | | [place] | | | | | [address] | | + + + + + Care Team Providers + +------+ + | Care Picture Copyist Name | Role | Phone | [...] [address] | | | | | | [place], [place] | | | | | | [address] | | | | | | [phone] | | | +--------+---------+ + + + [...] of surgical weight loss procedure. Scheduled for [facility] on 02/05/06 Last 1 Wt Readings: Date: [...] has been cleared for surgery by her plastics patternmaker, Dr. Melendez. She states she has completed dietary consultation and psychological evaluation in [facility]. Those records have been requested. Current Problem [...]
--- OUTSIDE RECORDS SUMMARY | ~2018-08-20 | XMS | Encounter Summary ---
Demographics + + + | Address | [address] [place] [address] | | | [place] [address] | + + + | Home Phone [...] [place] | | | | | [address] | | + + + + + Care Team Providers + +------+ + | Care Campaign Director Name | Role | Phone | [...] as of this encounter Discharge Summaries Interface, Highway Traffic Control Technician In - 02/20/2006 2:34 AM [facility] [id number] ARETHA RAE [id number] Admission Date: 02/05/2006 Discharge Date: 02/09/2006 Staff [...] of discharge, she was seen by our counseling case manager who assisted her with a voucher for a motel. She will stay in the local area for the next 2 days before returning home to [place]. The patient was seen by Nutrition and [...] Sana Timmons M.D. Chey Escobar M.D. / [id number] / [id number] / [id number] / [id number] E: 02/11/2006 cmw cc: Tuan Chan M.D. FAX: [phone] Reviewed or Edited By Sana Timmons on 02-19-2006 Electronically signed by Herberth Brambila 02-19-2006 11:24:08 AM documented i n this encounter Plan of Treatment Not on filedocumented as of this encounter Visit Diagnoses Not on filedocumented in this encounter"
--- OUTSIDE RECORDS SUMMARY | ~2018-08-20 | XMS | Encounter Summary ---
Demographics + + + | Address | [address] | | | [place] [address] | + + + | Home Phone [...] [place] | | | | | [address] | | + + + + + Care Team Providers + +------+ + | Care Air Dispatcher Name | Role | Phone | + +------+ + | Tuan Chan MD | PCP | | + +------+ + Encounter Details +--------+ + + + + | Date | Type | Department | Care Team | Description | +--------+ + + + + | 02/06/ | Respiratory | | Other, Faculty | | | 2005 | Therapy | | [phone] | | +--------+ + + + + [...] 3 | | | | | | pA Butler, SENIOR OUTSIDE SALES REPRESENTATIVE | | | | + + + [...] SPECIAL | [address] | [place], [place] | | | DIAGNOSTICS - | [address] | [address] | | | PULMONARY FUNCTION | | [...] AMY DOWNS | [address] | [place], [place] | | | DIAGNOSTICS - | [address] | [address] | | | PULMONARY FUNCTION | | [...] AMY DOWNS | [address] | [place], [place] | | | DIAGNOSTICS - | [address] | [address] | | | PULMONARY FUNCTION | | [...] AMY SPECIAL | [address] | [place], [place] | | | DIAGNOSTICS - | [address] | [address] | | | PULMONARY FUNCTION | | [...] | | | | | Noe Alas, SENIOR OUTSIDE SALES REPRESENTATIVE | | | | + + + [...] AMY SPECIAL | [address] | [place], [place] | | | DIAGNOSTICS - | [address] | [address] | | | PULMONARY FUNCTION | | [...] AMY SPECIAL | [address] | [place], [place] | | | DIAGNOSTICS - | [address] | [address] | | | PULMONARY FUNCTION | | [...] | | | Y | Jeff Watts SENIOR OUTSIDE SALES REPRESENTATIVE | | | | + + + [...] AMY SPECIAL | [address] | [place], [place] | | | DIAGNOSTICS - | [address] | [address] | | | PULMONARY FUNCTION | | [...] | | | | | | Medalia, SENIOR OUTSIDE SALES REPRESENTATIVE | | | | + + + [...] [facility] SPECIAL | [address] | [place], [place] | | | DIAGNOSTICS - | [address] | [address] | | | PULMONARY FUNCTION | | [...] AMY SPECIAL | [address] | [place], [place] | | | DIAGNOSTICS - | [address] | [address] | | | PULMONARY FUNCTION | | [...] AMY SPECIAL | [address] | [place], [place] | | | DIAGNOSTICS - | [address] | [address] | | | PULMONARY FUNCTION | | [...] AMY DOWNS | [address] | [place], [place] | | | DIAGNOSTICS - | [address] | [address] | | | PULMONARY FUNCTION | | [...] 10. | | | | | | WELDING MACHINE OPERATOR SUBMERGED ARC IN USE: PATIENT SELF | | | [...] NONE | | | | | | [id number] HOURS . . | | | | [...] [facility] SPECIAL | [address] | [place], [place] | | | DIAGNOSTICS - | [address] | [address] | | | PULMONARY FUNCTION | | [...] AMY SPECIAL | [address] | [place], [place] | | | DIAGNOSTICS - | [address] | [address] | | | PULMONARY FUNCTION | | | | + + + + + documented in this encounter Visit Diagnoses Not on filedocumented in this encounter"
--- OUTSIDE RECORDS SUMMARY | ~2018-08-20 | XMS | Encounter Summary ---
Demographics + + + | Address | [address] | | | [place] [address] | + + + | Home Phone [...] + + + | Author | [facility] | + + + | Organization | [facility] | + + + | Address | Unknown | + + + | Phone | Unavailable | + + + Support + + + + + | Name | Relationship | Address | Phone | + + + + + | Hector Mack | ECON | [address] | | | | | [place] | | | | | [address] | | + + + + + Care Team Providers + +------+ + | Care Pouch Maker Name | Role | Phone | [...] | | | obstructing | [facility] | [address] | | | | | calculus at | [address] | Ave | | | | | the right | [facility] | [place], [place] | | | | | [place]. | [address] | [address] | | | | | | [address] | Phone: | | | | | | [place], | [phone] | | | | | | [place] [address] | Fax: | | | | | | Phone: | [phone] | | | | | | [phone] | | | | | | | Fax: | | | | | | | [phone] | | +--------+--------+ + + + + Encounter Details +--------+---------+ + + + | Date | Type | Department | Care Team | Description | +--------+---------+ + + + | 03/11/ | Office | Urology Fertility | Renato hCow MD | Kidney stone | | 2010 | Visit | [address] | [address] | (Primary Dx); Other | | | | Mail Code: CH10U | [place], [place] | specified | | | | [facility] | [address] | pre-operative | | | | and | [phone] | examination | | | | Floor [place], [place] | | | | | | [address] | | | | | | [phone] | | | +--------+---------+ + + + [...] surgeries scheduled to take place [place] at the [facility]: Surgeries scheduled in the [facility] (4 North): registration is located on the 4th floor of [facility] (Day Surgery). Surgeries scheduled in the [facility]: registration is located on the 9th floor. Surgeries scheduled in [facility]: registration is located on the 6th floor. Surgeries scheduled in the [facility]: registration is located i n the [facility] on the first floor. For surgeries scheduled to take place at the [facility]: registration is l [...] If you use specialized medical equipment at [facility], please check with your provider before [...] female referred by Dr. 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 She has been maintained of Plavx since then but stopped it over a week ago. She has no cardiac symptoms especially since w eight loss from 550 to 190 after gastric bypass in 2005. Pannus removed more recently by Dr. Gia Amin at [facility]. 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 Social History Main Topics Smoking status: Former [...] + + + | Test performed by: [facility] | [facility] | | [facility] [address] [place], [place] [address] | DEPARTMENT OF | | | PATHOLOGY | + + + + + + + + | Performing | Address | City/State/Zipcode | Phone Number | | Organization | | | | + + + + + | [facility] DEPARTMENT OF | [address] | [place] [address] | | | PATHOLOGY | [address] [...] + + + | Test performed by: [facility] | [facility] | | Outpatient Lab [facility] [address] [place], [place] [address] | DEPARTMENT OF | | Sent to [facility]. | PATHOLOGY | + + + + + + + + | Performing | Address | City/State/Zipcode | Phone Number | | Organization | | | | + + + + + | [facility] DEPARTMENT OF | [address] | [place] [address] | | | PATHOLOGY | [address] | | | + + + + + 12 LEAD ECG (03/11/2011 4:58 PM PST) + + + + + + | Component | Value | Ref Range | Performed | Pathologist | | | | | At | Signature | + + + + + + | VENTRICULAR | 62 | BPM | [facility] DEPT | | | RATE | | [...] | | | | | by STACEY ENWTON ([id number]) | | | | | | [...] view image for the detailed interpretation from [employer] results. | CARDIOLOGY | + + + + + + + + | Performing | Address | City/State/Zipcode | Phone Number | | Organization | | | | + + + + + | [facility] DEPT OF | [address] [facility] | [place], [place] | | | CARDIOLOGY | [address] | [address] | | + + + + + [...] RLB | | | | | | ([facility]) | | | | | | [place] | | | | | | [facility] | | | | | | [address] | | | | | | [address] | | | | | | [place] | | | | | | , [place] [address] | | | | + + + + + + + + | Specimen | + + | Urine - Voided | + + + + + + + | Performing | Address | City/State/Zipcode | Phone Number | | Organization | | | | + + + + + | [facility] | [address] | [place] [address] | | | LAB-MICRO | | | [...] [facility] | [address] | [place] [address] | | | OF CARE TESTS | | | | + + + + + documented in this encounter Visit Diagnoses + + | Diagnosis | + + | Kidney stone - Primary Calculus of kidney | + + | Other specified pre-operative examination | + + documented in this encounter
--- OUTSIDE RECORDS SUMMARY | ~2018-08-20 | XMS | Encounter Summary ---
Demographics + + + | Address | [address] | | | [place] [address] | + + + | Home Phone [...] [place] | | | | | [address] | | + + + + + Care Team Providers + +------+ + | Care Social Media Analyst Name | Role | Phone | + +------+ + | Tuan Chan MD | PCP | | + +------+ + Encounter Details +--------+------+ + + + | Date | Type | Department | Care Team | Description | +--------+------+ + + + | 03/11/ | Lab | Laboratory at [facility] | | Kidney stone | | 2010 | | [address] | | | | | | [place], [place] | | | | | | [address] | | | | | | [phone] | | | +--------+------+ + + + [...] + + documented in this encounter Results [facility] - BASIC METABOLIC SET (03/11/2011 [...] + + + | Test performed by: [facility] | [facility] | | Outpatient Lab [address] [place], [place] [address] | DEPARTMENT OF | | | PATHOLOGY | + + + + + + + + | Performing | Address | City/State/Zipcode | Phone Number | | Organization | | | | + + + + + | [facility] | [address] | [place] [address] | | | PATHOLOGY | [address] [...] cmnt | 150 - 420 K/cu | [facility] | | | COUNT, | | mm [...] + + + | Test performed by: [facility] | [place] | | Outpatient Lab [facility] [address] [place], [place] [address] | DEPARTMENT OF | | Sent to [facility]. | PATHOLOGY | + + + + + + + + | Performing | Address | City/State/Zipcode | Phone Number | | Organization | | | | + + + + + | [facility] | [address] | [place] [address] | | | PATHOLOGY | [address] | | | + + + + + documented in this encounter Visit Diagnoses + + | Diagnosis | + + | Kidney stone Calculus of kidney | + + documented in this encounter"
--- OUTSIDE RECORDS SUMMARY | ~2018-08-20 | XMS | Encounter Summary ---
Demographics + + + | Address | [address] | | | [place] [address] | + + + | Home Phone [...] [place] | | | | | [address] | | + + + + + Care Team Providers + +------+ + | Care Nurse Name | Role | Phone | + +------+ + | Tuan Chan MD | PCP | | + +------+ + Encounter Details +--------+ + + + + | Date | Type | Department | Care Team | Description | +--------+ + + + + | 02/13/ | Fruit Tester | Urology Fertility | Renato Chow MD | Kidney stones | | 2010 | | [address] | [address] | (Primary Dx) | | | | Mail Code: CH10U | [place], [place] | | | | | [facility] | [address] | | | | | and | [phone] | | | | | Floor [place], [place] | | | | | | [address] | | | | | | [phone] | | | +--------+ + + + [...]
--- OUTSIDE RECORDS SUMMARY | ~2018-08-20 | XMS | Encounter Summary ---
Demographics + + + | Address | [address] | | | [place] [address] | + + + | Home Phone [...] [place] | | | | | [address] | | + + + + + Care Team Providers + +------+ + | Care Spout Liner Helper Name | Role | Phone | [...]
--- OUTSIDE RECORDS SUMMARY | ~2018-08-20 | XMS | Encounter Summary ---
Demographics + + + | Address | [address] | | | [place] [address] | + + + | Home Phone [...] + + + | Author | [facility] | + + + | Organization | [facility] | + + + | Address | Unknown | + + + | Phone | Unavailable | + + + Support + + + + + | Name | Relationship | Address | Phone | + + + + + | Hector Mack | ECON | [address] | | | | | [place] | | | | | [address] | | + + + + + [...] Muir | | | | n | [facility] Mailcode: | [address] [place], | | | | | [address] [place], [place] | [place] [address] | | | | | [address] | [phone] | | | | | [phone] | | | +--------+ + + + [...]
--- OUTSIDE RECORDS SUMMARY | ~2018-08-20 | XMS | Encounter Summary ---
Demographics + + + | Address | [address] | | | [place] [address] | + + + | Home Phone [...] [place] | | | | | [address] | | + + + + + Care Team Providers + +------+ + | Care Top Closer Name | Role | Phone | + [...] | 2008 | Visit | Medical at [facility] [address] | [address] | (Primary Dx) | | | | Floor [address] | [place], | | | | | [facility] Mail Code: | [place] [address] | | | | | [address] [facility] | [phone] | | | | | Health and Healing, | | | | | | 16 floor | | | | | | [place], [place] | | | | | | [address] | | | | | | [phone] | | | +--------+---------+ + + + [...] --s/p CABG in [address] [facility] --s/p cholecystectomy 35 years ago --s/p [...] weeks Julia Buckley PA-C Department of Dermatology [facility] and 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
--- OUTSIDE RECORDS SUMMARY | ~2018-08-20 | XMS | Encounter Summary ---
Demographics + + + | Address | [address] | | | [place] [address] | + + + | Home Phone [...] Author | [facility] | + + + | Organization | [facility] | + + + | Address | Unknown | + + + | Phone | Unavailable | + + + Support + + + + + | Name | Relationship | Address | Phone | + + + + + | Hector Mack | ECON | [address] | | | | | [place] | | | | | [address] | | + + + + + Care Team Providers + +------+ + | Care Finger Waver Name | Role | Phone | + [...] Road | | | | | | [place], [place] | Mailcode: | | | | | | [address] | [address] [facility] | | | | | | | [facility] | | | | | | | [place], [place] | | | | | | | [address] | | | | | | | Phone: | | | | | | | [phone] | | | | | | | Fax: | | | | | | | [phone] | +--------+--------+ + + + + Diagnostic [...] | | | | | Mary | [facility] | | | | | | [place], [place] | Mailcode: | | | | | | [address] | [address] [facility] | | | | | | | [facility] | | | | | | | [place], [place] | | | | | | | [address] | | | | | | | Phone: | | | | | | | [phone] | | | | | | | Fax: | | | | | | | [phone] | +--------+--------+ + + + + Diagnostic [...] CTA | Socorro Genao MD | s 1912 | | | | | HEAD WITH | [address] | | | | [address] | [address] | [address] | | | | | | [address] | Road | | | | | | [place] | Mailcode: | | | | | | [address] | [address] [facility] | | | | | | Phone: | Hospital | | | | | | [phone] | [place], [place] | | | | | | Fax: | [address] | | | | | | [phone] | Phone: | | | | | | | [phone] | | | | | | | Fax: | | | | | | | [phone] | +--------+--------+ + + + + Diagnostic [...] CTA | Socorro Genao MD | [address] | | | | | HEAD WITH | [address] | | | | | CONTRAST | [address] | [address] | | | | | | [address] | Road | | | | | | [place] | Mailcode: | | | | | | [address] | [address] [facility] | | | | | | Phone: | [facility] | | | | | | [phone] | [place], [place] | | | | | | Fax: | [address] | | | | | | [phone] | Phone: | | | | | | | [phone] | | | | | | | Fax: | | | | | | | [phone] | +--------+--------+ + + + + Diagnostic [...] | | [address] | [facility] | | | | | | [facility] | Mailcode: | | | | | | [place], [place] | [address] | | | | | | [address] | [place] | | | | | | Phone: | Research | | | | | | [phone] [facility] | | | | | | Fax: | [place], [place] | | | | | | [phone] | [address] | | | | | | | Phone: | | | | | | | [phone] | | | | | | | Fax: | | | | | | | [phone] | +--------+--------+ + + + + Diagnostic [...] | | [address] | [facility] | | | | | | [facility] | Mailcode: | | | | | | [place], [place] | [address] | | | | | | [address] | [place] | | | | | | Phone: | Research | | | | | | [phone] | [place] | | | | | | Fax: | [place], [place] | | | | | | [phone] | [address] | | | | | | | Phone: | | | | | | | [phone] | | | | | | | Fax: | | | | | | | [phone] | +--------+--------+ + + + + Reason [...] + + | 04/21/ | Hospital | [facility] [address] | Bryan Adams MD | | | 2013 - | Encounter | [address] | [address] | | | | | [address]/KPV12 MIMA | Scotty Nolasco | | | 04/24/ | | [place], | [place] [address] | | | 2012 | | [place] [address] | [phone] | | | | | [phone] | | | | | | | Chaim Vizcarra MD | | | | | | [address] | | | | | | [address] [place], | | | | | | [place] [address] | | | | | | [phone] | | | | | | | [...] fracture, and she was subsequently transferred to [facility] for escalation of care. On comparison [...] Derm follow-up closer to her home in [place]. Medications: Discharge Medication List as of 04/24/2012 [...] Attending Physician: MD Tuan Sethi MD Neurology Physical Sciences Professor Pager [phone] I saw and evaluated the patient. I agree with the findings and the plan of care as yesika lares in the resident s note. Halley Noriega MD Process Control Programmer Department of Neurology [facility] DEPARTMENT: Neurology Attending - [id number] Place of Service: [facility] Date of Service: 04/24/2012 CSN: [id number] Suggestive Modifier: GC - Resident Present Suggested CPT: 45380 - Discharge Day mgmt up to 30 [...] to re-consult, any questions. DANIELLE WYNN PA-C [facility] [address] [address]kp2 [place] [address] hPetrona ayala PA - 04/23/2012 10:44 AM PSTFormatting of this note might be different from the [facility]. NEUROSURGERY DAILY PROGRESS NOTE Author: [...] PLT 217 03/13/2011 7:46 AM PLT See [facility] 03/11/2011 5:13 PM CULTURE RESULT (no [...] indicated. Final Rep ort Resulted: 03/13/11 [facility] ([facility]) [facility] [address] [place] [address] STUDY: SPINE CERVICAL 2 VWS FLEX/EXT 04/22/12 [...] otherw ise intact. Motor 5/5 except LUE elevator mechanic apprentice 4/5 Sensation intact to light touch Assessment [...] collar Will continue to follow. FABIO JACOBSEN-Matty [facility] [address] [address]kp2 [place] [address] Halley Haddad MD - 04/23/2012 8:37 AM [...] Hari, attending physician, who agrees with the [facility] assessment and plan. VERA COOK MD,MPH Neurology Resident [id number] I performed a history and physical examination [...] it requires holding plavix. Halley Noriega MD Process Control Programmer Department of Neurology EPIC DEPARTMENT: Neurology Attending - [id number] Place of Service: - Date of Service: 04/22/2013 CSN: [id number] Suggestive Modifier: None Suggested CPT: 04711 - Initial Visit, Level 2 Suggested Diagnosis: [...] and face w eakness and referred to [facility] for possible cervical fracture. MRI suggests [...] Tongue midline Trace left pronator drift Slowed ihitpg-se-nigj movements with mild end-point dysmetria 5/5 bilateral [...] Downs MD - 04/22/2012 7:47 AM PST [facility] Neuroscience ICU Progress Note Team Pager: [phone] Attendin Attending Baggage Porter: Primary Service Attending: MD Bryan Espinosa MD [...] 84.5 kg (186 lb 4.6 oz) (04/21/12 2835) Today s weight: Not on file. Date 04/21/12 07 - 04/22/12 0659 04/22/12 07 - 04/23/12 0659 Shift 4193-6142 8999-1420 2199-1768 Daily Total 2833-7150 0367-6781 6672-8695 Daily Total I N T A K [...] plan. Viktoriya Downs MD PGY2 Neurology Pager [phone] documented in t his encounter Plan of [...] MARQUAM | [address] | [place], [place] | | | MARLEEN NESBITT OF CARE | [address] | [address] | | | TESTS | | | [...] [facility] | [address] | [place] [address] | | | SERVICES, CORE | PARK [...] [facility] | [address] | [place] [address] | | | SERVICES, CORE | MARY [...] + + + | [facility] | [address] | [place] [address] | | | SERVICES, BLU | MARY [...] + + | [facility] | [address] | [place] | | | DELICIA DOVER OF [facility] | [facility] | [address] | | | TESTS | | | [...] She mentions that she was seen by 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 The patient was seen and examined with | | | the attending physician. We discussed the recommendations listed | | | above. Trevor Sosa M.D. Resident, Department of | | | Dermatology [facility] Attending | | | Physician Attestation I personally interviewed, examined the patient, | | | and discussed management with the resident. I reviewed and | | | edited the resident's note and agree with the documented findings | | | and plan of care. Khoa Manuel MD, PhD Organizational Development Manager | | | Professor, Department of Dermatology [facility] | | | [facility] DEPARTMENT: [id number] - [facility] Place of | | | Service:- Inpatient Date of Service: 04/23/2012 MEDICAL RECORD | | | NUMBER [id number] CSN: [id number] Suggested Modifier: CARLOS Resident | | | Involved: GC Resident Involved Suggested CPT: 60302 - Initial, | | | Detailed; Low [...] medications.She mentions that she was seen by [facility] | | dermatology in 2008 with [...] of Education: N/A Occupational History | | [place] [employer] longterm Social History Main Topics | | Smoking [...] | follow-up closer to her home in [place]; would f/u with a supervisor alum plant there if not | | improved on topicalsPlease contact us with further questions. The patient was seen and | | examined with the attending physician. We discussed the recommendations listed | | above.Trevor Sosa M.D.Resident, [facility] | | [place] Attending Physician AttestationI personally interviewed, examined the | | patient, and discussed management with the resident. I reviewed and edited the | | resident's note and agree with the documented findings and plan of care. Khoa Lee | | MD Kaleb, PhDAssistant Professor, [facility] | | [facility] DEPARTMENT: [id number] - [facility]85860- Inpatient Date | | of Service: 04/23/2012 : [id number] Modifier: | | GC Resident Involved: GC Resident InvolvedSuggested CPT: 12540 - Initial, Detailed; Low | | complex [...] to follow-up closer to her home in [place]; would f/u with a supervisor alum plant there if not improved on topicals | | | |Please contact us with further questions. The patient was seen and examined with the attend ing physician. We discussed the recommendations listed above. | | | | | |Trevor Sosa M.D. | |Resident, Department of Dermatology | |[facility] | | | |Attending Physician Attestation | |I personally interviewed, examined the patient, and discussed management with the resident. I reviewed and edited the resident's note and agree with the documented findings and plan of care. | | | | | |Khoa Manuel MD, PhD | |Process Control Programmer, Department of Dermatology | |[facility] | | | |[facility] DEPARTMENT: [id number] [facility] | |Place of Service:31167- Inpatient | |Date of Service: 04/23/2012 | | | |CSN: [id number] | |Suggested Modifier: GC Resident Involved: GC Resident Involved | |Suggested CPT: 38519 - Initial, Detailed; Low complex 30 min [...] MARQUAM | [address] | [place], [place] | | | MARLEEN NESBITT OF CARE | [address] | [address] | | | TESTS | | | [...] + | [facility] - AIRPORT - | [address] | [place] [address] | | | [place] | | | [...] + | [facility] - AIRPORT - | [address] | [place] [address] | | | [place] | | | [...] | + + + + + | [facility] - | [address] | [place] [address] | | | [place] | | | [...] ELYSE | [address] | [place] | | | MARLEEN NESBITT OF LANCE | [facility] | [address] | | | TESTS | | | [...] + | [facility] - AIRPORT - | [address] | [place] [address] | | | [place] | | | [...] | prevalent in the general | | [place] | | | | population, and in [...] + | [facility] - AIRPORT - | [address] | [place] [address] | | | [place] | | | [...] SERUM | Severe deficiency. If | | [facility] | | | | supplementation does not | | [place] | | | | correct consider | [...] if | | | | | | [id number] >400: | | | | | | [...] | + + + + + | [facility] - AIRPORT - | [address] | [place] [address] | | | [facility] | | | | + + + [...] | | | | | | [facility] | | | | | | [place] | | | | | | [address] | | | | | | [phone].[employer]. | | | | | | Alma matthews, | | | | | | Fiasal WARE. Director | | | | + + + + + + + + | Specimen | + + | Blood - Blood | + + + + + + + | Performing | Address | City/State/Zipcode | Phone Number | | Organization | | | | + + + + + | [facility] | [address] | [place], [place] | | | [facility] | | [address] | | + + + + + [...] + | [facility] - AIRPORT - | [address] | [place] [address] | | | [place] | | | [...] + | [facility] - AIRPORT - | [address] | [place] [address] | | | [facility] | | | | + + [...] + | [facility] - AIRPORT - | [address] | [place] [address] | | | [place] | | | | + + + [...] [facility] | [address] | [place] [address] | | | SERVICES, CORE | PARK [...] + + + + + + | GEOLOGICAL TECHNICAL OFFICER AB | Negative | Negative | [facility] [...] + | | <7.0 7.0-10 >10 Abraham GEOLOGICAL TECHNICAL OFFICER AB | COAG | | U/ml <5.0 [...] [facility] | [address] | [place] [address] | | | SERVICES, SPECIAL | PARK [...] [facility] | [address] | [place] [address] | | | SERVICES, SPECIAL | PARK [...] [facility] | [address] | [place] [address] | | | SERVICES, CORE | PARK [...] HEALTH CENTER | [address] | [place] [address] | | | SERVICES, CORE | MARY [...] [facility] | [address] | [place] [address] | | | SERVICES, CORE | MARY [...] | | | | | | isrecommended.3. Community Director | | | | | | [place] [...] | | + +---------+ + + | [facility] DEPARTMENT OF | | | | | [...] | | | | | | isrecommended.3. Community Director | | | | | | london [...] ELYSE | [address] | [place], [place] | | | MARLEEN NESBITT OF LANCE | [address] | [address] | | | TESTS | | | [...] (H) | 60 - 99 mg/dL | [facility] - | | | GLUCOSE, | [...] PAPPAS | [address] | [place] | | | MARLEEN NESBITT OF [facility] | [facility] | [address] | | | TESTS | | | [...] back | | | | | | [id number]. Attending | | | | | | [...] | | + +---------+ + + | [facility] DEPARTMENT OF | | | | [...] + + + | [facility] | [address] | [place] | | | MARLEEN NESBITT OF [facility] | [address] | [address] | | | TESTS | | | [...] [facility] | [address] | [place] [address] | | | SERVICES, BLU | MARY [...] | + + + + + | [employer] | [address] | [place] [address] | | | SERVICES, CORE | MARY [...] | | | | Fin | | [place] | | | | al CULTURE | [...] | + + + + + | [place] - AIRPORT - | [address] | [place] [address] | | | [place] | | | [...] [facility] | [address] | [place] [address] | | | SERVICES, CORE | MARY [...] MARQUAM | [address] | [place] | | | DELICIA POINT OF CARE | [address] | [address] | | | TESTS | | | [...] [facility] | [address] | [place] [address] | | | SERVICES, CORE | PARK [...] | + + + + + | [employer] | [address] | [place] [address] | | | SERVICES, | [address] [...] + + + + + | [facility] | [address] | [place] [address] | | | SERVICES, | [address] [...] 1.00 | 0.90 - 1.20 INR | [facility] | | | | | | [...] + + + + + | [facility] | [address] | [place] [address] | | | SERVICES, CORE | PARK [...] [facility] | [address] | [place] [address] | | | SERVICES, CORE | PARK [...] [facility] | [address] | [place] [address] | | | SERVICES, CORE | PARK [...]
--- OUTSIDE RECORDS SUMMARY | ~2018-08-20 | XMS | Encounter Summary ---
Demographics + + + | Address | [address] | | | [place] [address] | + + + | Home Phone [...] + + + | Author | [facility] | + + + | Organization | [facility] | + + + | Address | Unknown | + + + | Phone | Unavailable | + + + Support + + + + + | Name | Relationship | Address | Phone | + + + + + | Hector Mack | ECON | [address] | | | | | [place] | | | | | [address] | | + + + + + Care Team Providers + +------+ + | Care Senior Coldfusion Developer Name | Role | Phone | [...] Dx); | | | | Surgery at [facility] [address] | | Intertrigo; CAD | | | | [address] | | (Coronary Artery | | | | Code: [facility] | | Disease); DM Circ | | | | for Health and | | Dis Type II, | | | | Healing, 5th Floor | | Uncontrolled (HCC) | | | | [place], [place] | | | | | | [address] | | | | | | [phone] | | | +--------+---------+ + + + [...] surgeries scheduled to take place [place] at the [facility]: Surgeries scheduled in the [facility] (4 North): registration is located on the 4th floor of [facility] (Day Surgery). Surgeries scheduled in the [facility]: registration is located on the 9th floor. Surgeries scheduled in [facility]: registration is located on the 6th floor. Surgeries scheduled in the [facility]: registration is located i n the [facility] on the first floor. For surgeries scheduled to take place at the [facility]: registration is l ocated on the 4th [...] Accession | | | | | | #:[id number] | | | | | | and [...] | | | | | | dedicated ChatID System | | | | | | with R2 CAD. Performed | | | | | | at [facility] and | | | | | | Science | | | | | | [place].ASSESSMENT: | | | | | | Negative [...] | + + + + + | [facility] | [facility] | [place] [address] | | | PATHOLOGY | [address] | | | + + + + + | [place] DEPARTMENT OF | [facility] | [place] [address] | | | PATHOLOGY | [address] [...] | + + + + + | [facility] DEPARTMENT OF | [address] | [place] [address] | | | PATHOLOGY | [address] | | | + + + + + | [facility] | [address] | [place] [address] | | | PATHOLOGY | [address] [...] | + + + + + | [facility] | [address] [facility] | [place] [address] | | | PATHOLOGY | [address] | | | + + + + + | [facility] | [address] [facility] | [place] [address] | | | PATHOLOGY | [address] [...] Performed At | + + + | [address]704 Estimated GFR > 60 mL/min/1.73 sq m if non- | [facility] | | Malaysian [id number] Estimated GFR > 60 mL/min/1.73 sq m if | DEPARTMENT OF | | Malaysian GFR is estimated using the MDRD equation [...] + + | Performing | Address | City/[facility] | Phone Number | | Organization | | | | + + + + + | [facility] | [address] [place] [address] | [place] [address] | | | PATHOLOGY | [address] | | | + + + + + | [facility] | [address] [place] [address] | [place] [address] | | | PATHOLOGY | [address] [...] DEPARTMENT OF | [address] | [place] [address] | | | PATHOLOGY | [address] | | | + + + + + | [facility] | [address] | [place] [address] | | | PATHOLOGY | [address] | | | + + + + + documented in this encounter Visit Diagnoses + + | Diagnosis | + + | Panniculitis - Primary Panniculitis, unspecified site | + + | Intertrigo Other specified erythematous condition | + + | CAD (coronary artery disease) Coronary atherosclerosis of unspecified type of vessel, | | tolowa dee-ni' or graft | + + | Type II or unspecified type diabetes mellitus with peripheral circulatory disorders, | | uncontrolled(250.72) Type II or unspecified type diabetes mellitus with peripheral | | circulatory disorders, uncontrolled | + + documented in this encounter
--- OUTSIDE RECORDS SUMMARY | ~2018-08-20 | XMS | Encounter Summary ---
Demographics + + + | Address | [address] | | | [place] [address] | + + + | Home Phone [...] + + + | Author | [facility] | + + + | Organization | [facility] | + + + | Address | Unknown | + + + | Phone | Unavailable | + + + Support + + + + + | Name | Relationship | Address | Phone | + + + + + | Hector Mack | ECON | [address] | | | | | [place] | | | | | [address] | | + + + + + Care Team Providers + +------+ + | Care Sugar Refinery Supervisor Name | Role | Phone | [...] | | | | | | | [facility] | | | | | | | [place], | | | | | | | [place] [address] | | | | | | | Phone: | | | | | | | [phone] | | | | | | | Fax: | | | | | | | [phone] | +--------+--------+ + + + + Encounter Details +--------+---------+ + + + | Date | Type | Department | Care Team | Description | +--------+---------+ + + + | 05/09/ | Office | Preoperative | Steven, | Preop Examination | | 2008 | Visit | Medicine Clinic at | [facility] | (Primary Dx); | | | | [facility] 4th Floor [address] | | Long-Term (Current) | | | | [address] | | Use of | | | | Code: [facility] | | Anticoagulants | | | | for Health and | | | | | | [facility],4th Floor | | | | | | [place], [place] | | | | | | [address] | | | | | | [phone] | | | +--------+---------+ + + + [...] + + + + + | [facility] DEPARTMENT OF | [address] | [place] [address] | | | PATHOLOGY | [address] | | | + + + + + | [facility] DEPARTMENT OF | [facility] | [place] [address] | | | PATHOLOGY | [address] [...] + + + + + | [facility] DEPARTMENT OF | [address] | [place] [address] | | | PATHOLOGY | [address] | | | + + + + + | [facility] DEPARTMENT OF | [address] | [place] [address] | | | PATHOLOGY | [address] [...] Performed At | + + + | 643013 Estimated GFR > 60 mL/min/1.73 sq m if non- | [facility] | | Greek 386690 Estimated GFR > 60 mL/min/1.73 sq m if | DEPARTMENT OF | | Greek GFR is estimated using the MDRD equation [...] + + + + + | [facility] DEPARTMENT OF | [address] | [place] [address] | | | PATHOLOGY | [address] | | | + + + + + | [facility] DEPARTMENT OF | [address] | [place] [address] | | | PATHOLOGY | [address] [...] + + + + + | [facility] DEPARTMENT OF | [address] | [place] [address] | | | PATHOLOGY | [address] | | | + + + + + | [facility] DEPARTMENT OF | [address] [facility] | [place] [address] | | | PATHOLOGY | [address] [...]
--- OUTSIDE RECORDS SUMMARY | ~2018-08-20 | XMS | Encounter Summary ---
Demographics + + + | Address | [address] [place] [address] | | | [place] [address] | + + + | Home Phone [...] [place] | | | | | [address] | | + + + + + Care Team Providers + +------+ + | Care Operations Label Clerk Name | Role | Phone | [...] as of this encounter Discharge Summaries Interface, Emergency Department Coordinator In - 02/20/2006 2:34 AM [facility] [id number] [place]THA RAE [id number] Admission Date: 02/05/2006 Discharge Date: 02/09/2006 Staff [...] of discharge, she was seen by our piano case maker who assisted her with a voucher for a motel. She will stay in the local area for the next 2 days before returning home to [place]. The patient was seen by Nutrition and [...] Sana Timmons M.D. Chey Escobar M.D. / [id number] / [id number] / [id number] / [id number] E: 02/11/2006 cmw cc: Tuan Chan M.D. FAX: [phone] Reviewed or Edited By Sana Timmons on 02-19-2006 Electronically signed by Herberth Brambila 02-19-2006 11:24:08 AM documented i n this encounter Plan of Treatment Not on filedocumented as of this encounter Visit Diagnoses Not on filedocumented in this encounter"
--- OUTSIDE RECORDS SUMMARY | ~2018-08-20 | XMS | Encounter Summary ---
Demographics + + + | Address | [address] [place] [address] | | | [place] [address] | + + + | Home Phone [...] + + + | Author | [facility] | + + + | Organization | [facility] | + + + | Address | Unknown | + + + | Phone | Unavailable | + + + Support + + + + + | Name | Relationship | Address | Phone | + + + + + | Hector Mack | ECON | [address] | | | | | [place] | | | | | [address] | | + + + + + Care Team Providers + +------+ + | Care Advance Seal Delivery System Maintainer Name | Role | Phone | [...] | | | Mail Code: CH10U | [place], [place] | | | | | [facility] | [address] | | | | | and , | [phone] | | | | | Floor [place], [place] | | | | | | [address] | | | | | | [phone] | | | +--------+ + + + [...]
--- OUTSIDE RECORDS SUMMARY | ~2018-08-20 | XMS | Encounter Summary ---
Demographics + + + | Address | [address] [place] [address] | | | [place] [address] | + + + | Home Phone [...] [place] | | | | | [address] | | + + + + + Care Team Providers + +------+ + | Care Digital Designer Name | Role | Phone | [...] | | 2010 | Only | [address] | [address] | | | | | Mail Code: CH10U | [place], [place] | | | | | [facility] | [address] | | | | | and [facility], | [phone] | | | | | Floor [place], [place] | | | | | | [address] | | | | | | [phone] | | | +--------+ + + + [...] | + + + + + | [facility] | [address] | [place] [address] | | | PATHOLOGY | [address] | | | + + + + + documented in this encounter Visit Diagnoses Not on filedocumented in this encounter"
--- OUTSIDE RECORDS SUMMARY | ~2018-08-20 | XMS | Encounter Summary ---
Demographics + + + | Address | [address] [place] [address] | | | [place] [address] | + + + | Home Phone [...] [place] | | | | | [address] | | + + + + + Care Team Providers + +------+ + | Care Processing Associate Name | Role | Phone | + [...] | Disease); | | | | [address] | | Dyslipidemia; | | | | Mailcode: [id number] | | Dysmetabolic | | | | [facility] | | Syndrome X; Sleep | | | | [address] [place], | | Apnea; Gout; DM Circ | | | | [place] [address] | | Dis Type II, | | | | [phone] | | Uncontrolled (HCC) | +--------+ + [...] | [facility] | [address] [facility] | [place] [address] | | | PATHOLOGY | [address] | | | + + + + + | [facility] | [address] [facility] | [place] [address] | | | PATHOLOGY | [address] | | | + + + + + documented in this encounter Visit Diagnoses + + | Diagnosis | + + | CAD (coronary artery disease) Coronary atherosclerosis of unspecified type of vessel, | | [place] or graft | + + | Dyslipidemia [...]
--- OUTSIDE RECORDS SUMMARY | ~2018-08-20 | XMS | Encounter Summary ---
Demographics + + + | Address | [address] [place] [address] | | | [place] [address] | + + + | Home Phone [...] + + + | Author | [facility] | + + + | Organization | [facility] | + + + | Address | Unknown | + + + | Phone | Unavailable | + + + Support + + + + + | Name | Relationship | Address | Phone | + + + + + | Hector Mack | ECON | [address] | | | | | [place] | | | | | [address] | | + + + + + Care Team Providers + +------+ + | Care Honey Processor Name | Role | Phone | [...] (Patients | | | | Surgery at [facility] [address] | | has some | | | | [address] Mail | | concerns, pain | | | | Code: [facility] Center | | issues) | | | | for Health and | | | | | | Healing, 5th Floor | | | | | | [place], [place] | | | | | | [address] | | | | | | [phone] | | | +--------+ + + + [...]
--- OUTSIDE RECORDS SUMMARY | ~2018-08-20 | XMS | Encounter Summary ---
Demographics + + + | Address | [address] [place] [address] | | | [place] [address] | + + + | Home Phone [...] [place] | | | | | [address] | | + + + + + Care Team Providers + +------+ + | Care Planer Tailer Name | Role | Phone | + [...] | Registratio | [address] Muir | [address] | | | | n | [facility] Mailcode: | [place], [place] | | | | | [address] [place], [place] | [address] | | | | | [address] | [phone] | | | | | [phone] | | | +--------+ + + + [...]
--- OUTSIDE RECORDS SUMMARY | ~2018-08-20 | XMS | Clinical Summary ---
Demographics + + + | Address | [address] [place] [address] | | | [place] [address] | + + + | Home Phone | | + + + | Preferred Language | Unknown | + + + | Marital Status | | + + + | Buddhist Affiliation | PRO | + + + | Race | White | + + + | Ethnic Group | Not or | + + + Author + + + | Author | [facility] | + + + | Organization | [facility] | + + + | Address | Unknown | + + + | Phone | Unavailable | + + + Support + + + + + | Name | Relationship | Address | Phone | + + + + + | Hector Mack | ECON | [address] | | | | | [place] | | | | | [address] | | + + + + + Care Team Providers + +------+ + | Care Supervisor Backfilling Name | Role | Phone | + +------+ + | Tuan Chan MD | PP | | + +------+ + Source Comments AMY is fully live on both [facility] Ambulatory and [facility] InPatient.[facility] Allergies + + + + [...] (Flu) | | | | | vaccination (Season | 9 | | | | Ended) | | | | + + + [...] | | | | | | | [address] | | + +--------+ +--------+ + +--------+ | [place]ICAID [place] | OHP | xxxxxxxx | 07/01/19 | [phone] | [address] | Medica | | | PLUS | | 10-Pre | 6 | [address] | id | | | OPEN | | sent | | [place] | | | | CARD | | | | [address] | | + +--------+ +--------+ + +--------+ [...] | | 1946 | [phone] | [address] [place] | | | demetrius | | | 4 (Home) | [address] | + +--------+ +--------+ + + Advance Directives + + + + + | Type | Date Recorded | Patient | Explanation | | | | Supercharger Repair Supervisor | | + + + + + | Advance | | | | | Directives and | | | | | Living Will | | | | + + + + + | Power of | | | | | Review Consultant | | | | + + + [...]
--- OUTSIDE RECORDS SUMMARY | ~2018-08-20 | XMS | Encounter Summary ---
Demographics + + + | Address | [address] | | | [place] [address] | + + + | Home Phone [...] [place] | | | | | [address] | | + + + + + Care Team Providers + +------+ + | Care Executive Coach Name | Role | Phone | + [...] | | | | | | [facility] | | | | | | Health and Healing, | | | | | | 6th floor [place], | | | | | | [place] [address] | | | | | | [phone] | | | +--------+---------+ + + + [...] Performed At | + + + | [id number] Estimated GFR = 60 mL/min/1.73 sq m if non- | [facility] | | 066214 Estimated GFR > 60 mL/min/1.73 sq m [...] | + + + + + | [facility] DEPARTMENT OF | [address] | [place] [address] | | | PATHOLOGY | [address] | | | + + + + + | [facility] DEPARTMENT OF | [address] | [place] [address] | | | PATHOLOGY | [address] [...] + + + + + | [facility] | [address] | [place] [address] | | | PATHOLOGY | [address] | | | + + + + + | [facility] | [address] | [place] [address] | | | PATHOLOGY | [address] | | | + + + + + documented in this encounter Visit Diagnoses + + | Diagnosis | + + | Obesity - Primary Obesity, unspecified | + + documented in this encounter
--- OUTSIDE RECORDS SUMMARY | ~2018-08-20 | XMS | Encounter Summary ---
Demographics + + + | Address | [address] [place] [address] [facility] [address] | | | [place] [address] | + + + | Home Phone [...] [place] | | | | | [address] | | + + + + + Care Team Providers + +------+ + | Care Section Gang Worker Name | Role | Phone | [...] | MD [address] | ([place] ) | | | | Mail Code: CH10U | [place], [place] | | | | | [facility] | [address] | | | | | and [address], | [phone] | | | | | Floor [place], [place] | | | | | | [address] | | | | | | [phone] | | | +--------+--------+ + + + [...]
--- OUTSIDE RECORDS SUMMARY | ~2018-08-20 | XMS | Encounter Summary ---
Demographics + + + | Address | [address] [place] [address] | | | [place] [address] | + + + | Home Phone | | + + + | Preferred Language | Unknown | + + + | Marital Status | | + + + | Restorationist Affiliation | PRO | + + + | Race | White | + + + | Ethnic Group | Not or | + + + Author + + + | Author | [facility] | + + + | Organization | [facility] | + + + | Address | Unknown | + + + | Phone | Unavailable | + + + Support + + + + + | Name | Relationship | Address | Phone | + + + + + | Hector Mack | ECON | [address] | | | | | [place] | | | | | [address] | | + + + + + Care Team Providers + +------+ + | Care Cardiac Technician Name | Role | Phone | [...] 2005 | Activity | Hermila Muir | [address] | | | | | [facility] Mailcode: | [place], [place] | | | | | [address] [place], [place] | [address] | | | | | [address] | [phone] | | | | | [phone] | | | +--------+ + + + [...]
--- OUTSIDE RECORDS SUMMARY | ~2018-08-20 | XMS | Encounter Summary ---
Demographics + + + | Address | [address] [place] [address] | | | [place] [address] | + + + | Home Phone [...] [place] | | | | | [address] | | + + + + + Care Team Providers + +------+ + | Care Consultant Technology Name | Role | Phone | + [...] as of this encounter Progress Notes Interface, Yard Labor Supervisor In - 05/24/2005 2:07 AM [facility] [id number] 05/23/2005 05/23/2005 [id number] [place] R[place] [address] [facility] [address] [place] [address] or May 23, 2005 Bryan Garza M.D. [address] [place] [address] RE: GERMAINE CARIAS MR #: [id number] Dear Dr. Garza: I saw your patient, Mrs. Germaine Carias in my office on , May 23, 2005. I went over her records and those of Dr. Walker in [place]. This pleasant, obese, 59-year-old female has a [...] junction. Dilation was performed up to a 20-Bermudian Microvasive balloon, and the patient claims that [...] is unemployed. She smoked, has about a 90-zpvd-vxrp smoking history but has not smoked in [...] Sincerely, Wes Wolff M.D. Ren / PASCUAL [id number] / [id number] / [id number] / cc: Lalo Walker M.D. [facility] [address] [place] [address] documented i n this encounter Plan of Treatment Not on filedocumented as of this encounter Visit Diagnoses Not on filedocumented in this encounter"
--- OUTSIDE RECORDS SUMMARY | ~2018-08-20 | XMS | Encounter Summary ---
Demographics + + + | Address | [address] [place] [address] [address] [address] | | | [place] [address] | + + + | Home Phone [...] [place] | | | | | [address] | | + + + + + Care Team Providers + +------+ + | Care Biodiesel Division Manager Name | Role | Phone | [...] + + | 03/12/ | Hospital | [facility] [address] | Renato Chow MD | | | 2010 - | Encounter | [address] | [address] | | | | | [facility] | [place], [place] | | | 03/13/ | | [place] [address] | [address] | | | 2010 | | [phone] | [phone] | | | | | | | [...] re removal. Feel free to call the [facility] urology clinic as needed for any additional questions . Your Follow-Up Plan Follow-up information has not been specified. Other Discharge Orders and Instructions Please contact Urology clinic ([phone]) during business hours or the Urology resident certified control systems technician ([phone]) after business hours for: 1. Redness or [...] Physician: Renato Chow MD documented in this enco unter Discharge Instructions Instructions Elbert Cornelius - 03/13/2011Patient [...] Physician: Renato Chow MD Patient: GERMAINE HEARD [id number] 24H events/Subjective: No events overnight. Pain well [...] 03/13/11 0659 03/13/11699 - 03/14/11 0659 Shift 2426-5957 5608-2580 3720-4947 Daily Total 0799-6374 1346-1933 4101-4111 Daily Total I N T A K E [address] 1080 1600 I.V. 1550 353 129 6887 5 5 Shift Total 1550 1320 1880 4750 5 5 O U T P U T Urine 800 389 499 6631 200 200 Shift Total 800 571 167 7886 200 200 Medication: acetaminophen (aka TYLENOL) tablet [...] | + + + + + | [facility] DEPARTMENT OF | [address] | [place] [address] | | | PATHOLOGY | [address] [...] + + | [facility] | [address] | [place] [address] | | | PATHOLOGY | [address] [...] | | | | | | 500 | | | | | | Neri Alvarez, [facility],[place] | | | | | | [address] | | | | | | [phone] | | | | | | | | | | | | [email or web address], [place] | | | | | | Angi Odonnell MD - Lab. | | | | | | Director | | | | + + [...] [facility] | [address] | [place], [place] | | | [facility] | | [address] | | + + + + + [...] | | | | | CABG as | | | | | | before. Lungvolumes | | | | | | are low. There is | | | | | | minimal scattered | | | | | | subsegmental | | | | | | [...] + +---+ + +---------+ +--------+--------+---+ | HYDROmorphone (ilanaa CISCOAUDID) | New Bag | 03/13/20 | 0.8 mg | mL/hr | | | injection 0.2-0.8 mg 0.2-0.8 mg, | | 11 2:58 | | | | | intravenous, EVERY 2 HOURS | | AM PST | | | | | NEEDED, Starting Tu03/12/11 at | | | | | | [...] | | | | | NEEDED, Starting Tu03/12/11 at | | | | | | [...]
--- OUTSIDE RECORDS SUMMARY | ~2018-08-20 | XMS | Encounter Summary ---
Demographics + + + | Address | [address] [place] [address] | | | [place] [address] | + + + | Home Phone [...] Author + + + | Author | [facility] | + + + | Organization | [facility] | + + + | Address | Unknown | + + + | Phone | Unavailable | + + + Support + + + + + | Name | Relationship | Address | Phone | + + + + + | Hector Mack | ECON | [address] | | | | | [place] | | | | | [address] | | + + + + + Care Team Providers + +------+ + | Care Telegraph Installer Name | Role | Phone | [...] Muir | | | | n | [facility] Mailcode: | [address] [place], | | | | | [address] [place], [place] | [place] [address] | | | | | [address] | [phone] | | | | | [phone] | | | +--------+ + + + [...]
--- OUTSIDE RECORDS SUMMARY | ~2018-08-20 | XMS | Encounter Summary ---
Demographics + + + | Address | [address] [place] [address] | | | [place] [address] | + + + | Home Phone [...] [place] | | | | | [address] | | + + + + + Care Team Providers + +------+ + | Care Lawn Mower Name | Role | Phone | + [...] | Stay [address] | [place], [place] | | | | | [facility] [address] | [address] | | | | | Mailcode: UHN65 | [phone] | | | | | Ayah Nolan | | | | | | [address] [place], [place] | | | | | | [address] | | | | | | [phone] | | | +--------+ + + + [...]
--- OUTSIDE RECORDS SUMMARY | ~2018-08-20 | XMS | Encounter Summary ---
Demographics + + + | Address | [address] [place] [address] | | | [place] [address] | + + + | Home Phone [...] [place] | | | | | [address] | | + + + + + Care Team Providers + +------+ + | Care Radio Disc Jockey Name | Role | Phone | + [...] | | | | | | | [facility] | | | | | | | [place], | | | | | | | [place] [address] | | | | | | | Phone: | | | | | | | [phone] | | | | | | | Fax: | | | | | | | [phone] | +--------+--------+ + + + + Encounter Details +--------+---------+ + + + | Date | Type | Department | Care Team | Description | +--------+---------+ + + + | 05/09/ | Office | Preoperative | Steven, | Preop Examination | | 2008 | Visit | Medicine Clinic at | BITA [facility] | (Primary Dx); | | | | [facility] 4th Floor [address] | | Long-Term (Current) | | | | [address] | | Use of | | | | Code: [facility] Center | | Anticoagulants | | | | for Health and | | | | | | [facility],4th Floor | | | | | | [place], [place] | | | | | | [address] | | | | | | [phone] | | | +--------+---------+ + + + [...] | + + + + + | [facility] DEPARTMENT OF | [address] | [place] [address] | | | PATHOLOGY | [address] | | | + + + + + | [facility] DEPARTMENT OF | [facility] | [place] [address] | | | PATHOLOGY | [address] [...] | + + + + + | [facility] DEPARTMENT OF | [address] | [place] [address] | | | PATHOLOGY | [address] | | | + + + + + | [facility] DEPARTMENT OF | [address] | [place] [address] | | | PATHOLOGY | [address] [...] Performed At | + + + | [id number] Estimated GFR > 60 mL/min/1.73 sq m if non- | [facility] | | [place] [address] Estimated GFR > 60 mL/min/1.73 sq m if | DEPARTMENT OF | | [place] GFR is estimated using the MDRD equation [...] | + + + + + | [facility] DEPARTMENT OF | [address] | [place] [address] | | | PATHOLOGY | [address] | | | + + + + + | [facility] DEPARTMENT OF | [address] | [place] [address] | | | PATHOLOGY | [address] [...] | + + + + + | [facility] DEPARTMENT OF | [address] | [place] [address] | | | PATHOLOGY | [address] | | | + + + + + | [facility] DEPARTMENT OF | [address] [facility] | [place] [address] | | | PATHOLOGY | [address] [...]
--- OUTSIDE RECORDS SUMMARY | ~2018-08-20 | XMS | Encounter Summary ---
Demographics + + + | Address | [address] [place] [address] [facility] [facility] [address] | | | [place] [address] | + + + | Home Phone [...] [place] | | | | | [address] | | + + + + + Care Team Providers + +------+ + | Care Lactation Coordinator Name | Role | Phone | [...] | | | Mail Code: CH10U | [place], [place] | | | | | [facility] | [address] | | | | | and | [phone] | | | | | Floor [place], [place] | | | | | | [address] | | | | | | [phone] | | | +--------+---------+ + + + [...] 1 Years of Education: N/A Occupational History Grade[employer] Social History Main Topics Tobacco Use: Quit [...] [facility] | [address] | [place], [place] | | | [facility] | [address] | [address] | | | TESTS | | | | + + + + + | [facility] | [address] | [place], [place] | | | TESTS | [facility] | [address] | | + + + + + documented in this encounter Visit Diagnoses + + | Diagnosis | + + | Urolithiasis - Primary Urinary calculus, unspecified | + + documented in this encounter"
--- OUTSIDE RECORDS SUMMARY | ~2018-08-20 | XMS | Encounter Summary ---
Demographics + + + | Address | [address] [place] [address] | | | [place] [address] | + + + | Home Phone [...] [place] | | | | | [address] | | + + + + + Care Team Providers + +------+ + | Care Field Pipelines Supervisor Name | Role | Phone | [...] Muir | | | | n | [facility] Mailcode: | [address] [place], | | | | | [address] [place], [place] | [place] [address] | | | | | [address] | [phone] | | | | | [phone] | | | +--------+ + + + [...]
--- OUTSIDE RECORDS SUMMARY | ~2018-08-20 | XMS | Encounter Summary ---
Demographics + + + | Address | [address] [place] [address] | | | [place] [address] | + + + | Home Phone [...] [place] | | | | | [address] | | + + + + + Care Team Providers + +------+ + | Care Russet Repairer Name | Role | Phone | [...]
--- OUTSIDE RECORDS SUMMARY | ~2018-08-20 | XMS | Encounter Summary ---
Demographics + + + | Address | [address] [place] [address] | | | [place] [address] | + + + | Home Phone [...] [place] | | | | | [address] | | + + + + + Care Team Providers + +------+ + | Care Assistant Superintendent Name | Role | Phone | + [...] Muir | | | | n | [facility] Mailcode: | Mary [address] [place], | | | | | [address] [place], [place] | [place] [address] | | | | | [address] | [phone] | | | | | [phone] | | | +--------+ + + + [...]
--- OUTSIDE RECORDS SUMMARY | ~2018-08-20 | XMS | Encounter Summary ---
Demographics + + + | Address | [address] [place] [address] [facility] | | | [place] [address] | + + + | Home Phone [...] [place] | | | | | [address] | | + + + + + Care Team Providers + +------+ + | Care Land Resource Specialist Name | Role | Phone | [...] Muir | | | | n | [facility] Mailcode: | [address] [place], | | | | | [address] [place], [place] | [place] [address] | | | | | [address] | [phone] | | | | | [phone] | | | +--------+ + + + [...]
--- OUTSIDE RECORDS SUMMARY | ~2018-08-20 | XMS | Encounter Summary ---
Demographics + + + | Address | [address] [place] [address] [address] | | | [place] [address] | + + + | Home Phone | | + + + | Preferred Language | Unknown | + + + | Marital Status | | + + + | Sabianism Affiliation | PRO | + + + | Race | White | + + + | Ethnic Group | Not or | + + + Author + + + | Author | [facility] | + + + | Organization | [facility] | + + + | Address | Unknown | + + + | Phone | Unavailable | + + + Support + + + + + | Name | Relationship | Address | Phone | + + + + + | Hector Mack | ECON | [address] | | | | | [place] | | | | | [address] | | + + + + + Care Team Providers + +------+ + | Care Construction Person Name | Role | Phone | [...] as of this encounter Progress Notes Interface, Administrative Aide In - 11/28/2005 2:08 AM PDT [id number] [place]A RAE [id number] Clinic Date: 11/22/2005 Clinic: [facility] [...] conference presentation. Herberth Ayala M.D. Chelsie / [id number] / [id number] / [id number] / 83909 Electronically signed by Herberth Brambila 11-27-2005 02:01:34 PM documented i n this encounter Plan of Treatment Not on filedocumented as of this encounter Visit Diagnoses Not on filedocumented in this encounter"
--- OUTSIDE RECORDS SUMMARY | ~2018-08-20 | XMS | Encounter Summary ---
Demographics + + + | Address | [address] | | | [place] [address] | + + + | Home Phone | | + + + | Preferred Language | Unknown | + + + | Marital Status | | + + + | Lutheran Affiliation | PRO | + + + | Race | White | + + + | Ethnic Group | Not or | + + + Author + + + | Author | [facility] | + + + | Organization | [facility] | + + + | Address | Unknown | + + + | Phone | Unavailable | + + + Support + + + + + | Name | Relationship | Address | Phone | + + + + + | Hector Mack | ECON | [address] | | | | | [place] | | | | | [address] | | + + + + + Care Team Providers + +------+ + | Care Transition Of Care Specialist Name | Role | Phone | [...] removal) | | | | Surgery at [facility] [address] | | | | | | [address] Mail | | | | | | Code: CH5P Center | | | | | | for Health and | | | | | | Healing, 5th Floor | | | | | | [place], [place] | | | | | | [address] | | | | | | [phone] | | | +--------+ + + + [...]
--- OUTSIDE RECORDS SUMMARY | ~2018-08-20 | XMS | Encounter Summary ---
Demographics + + + | Address | [address] | | | [place] [address] | + + + | Home Phone [...] [place] | | | | | [address] | | + + + + + Care Team Providers + +------+ + | Care Cuff Turner Name | Role | Phone | + [...] 2005 | Registratio | Hermila Muir | [phone] | | | | n | [facility] Mailcode: | | | | | | [address] [place], [place] | | | | | | [address] | | | | | | [phone] | | | +--------+ + + + [...]
--- OUTSIDE RECORDS SUMMARY | ~2018-08-20 | XMS | Encounter Summary ---
Demographics + + + | Address | [address] | | | [place] [address] | + + + | Home Phone [...] [place] | | | | | [address] | | + + + + + Care Team Providers + +------+ + | Care Cashier Or Checker Stock Clerk Name | Role | Phone | + +------+ + | Tuan Chan MD | PCP | | + +------+ + Encounter Details +--------+---------+ + + + | Date | Type | Department | Care Team | Description | +--------+---------+ + + + | 12/15/ | Office | Plastic and | Aysha Blackburn | Obesity (Primary Dx) | | 2007 | Visit | Kramen Crow MD | | | | | Surgery at [facility] [address] | | | | | | [address] Mail | | | | | | Code: [facility] Center | | | | | | for Health and | | | | | | [facility], 5th [facility] | | | | | | [place], [place] | | | | | | [address] | | | | | | [phone] | | | +--------+---------+ + + + [...]
--- OUTSIDE RECORDS SUMMARY | ~2018-08-20 | XMS | Encounter Summary ---
Demographics + + + | Address | [address] | | | [place] [address] | + + + | Home Phone [...] [place] | | | | | [address] | | + + + + + Care Team Providers + +------+ + | Care Rn Office Name | Role | Phone | + [...] Hernia of | Aysha Crow | [address] | | | | | unspecified | [address] | [address] | | | | | site of | [address] | [facility] | | | | | abdominal | [place], [place] | Road | | | | | cavity | [address] | Mailcode: | | | | | without | | [address] [facility] | | | | | mention of | | Hospital | | | | | obstruction | | [place], [place] | | | | | or gangrene | | [address] | | | | | Procedures | | Phone: | | | | | CT ABDOMEN | | [phone] | | | | | WWO CONTRAST | | Fax: | | | | | LTD | | [phone] | +--------+--------+ + + + + Encounter Details +--------+ + + + + | Date | Type | Department | Care Team | Description | +--------+ + + + + | 08/05/ | Hospital | Radiology/Imaging | | | | 2008 | Encounter | Lab at [facility] [address] | | | | | | [address] | | | | | | Mailcode: CH3G | | | | | | [facility] | | | | | | and Healing, 3rd | | | | | | Floor [place], [place] | | | | | | [address] | | | | | | [phone] | | | +--------+ + + + [...]
--- OUTSIDE RECORDS SUMMARY | ~2018-08-20 | XMS | Encounter Summary ---
Demographics + + + | Address | [address] [place] [address] | | | [place] [address] | + + + | Home Phone [...] [place] | | | | | [address] | | + + + + + Care Team Providers + +------+ + | Care Metal Fabricator Apprentice Name | Role | Phone | [...] as of this encounter Progress Notes Interface, Tobacco Cloth Reclaimer In - 05/24/2005 2:07 AM [facility] [id number] 05/23/2005 05/23/2005 [id number] ARETHA RAE [place] [address] [facility] [facility] [place] [address] or May 23, 2005 Bryan Garza M.D. [address] [place] [address] RE: GERMAINE CARIAS MR #: [id number] Dear Dr. Garza: I saw your patient, Mrs. Germaine Carias in my office on , May 23, 2005. I went over her records and those of Dr. Walker in [place]. This pleasant, obese, 59-year-old female has a [...] junction. Dilation was performed up to a 20-Martiniquais Microvasive balloon, and the patient claims that [...] is unemployed. She smoked, has about a 95-evgj-mipx smoking history but has not smoked in [...] Sincerely, Wes Wolff M.D. Ren / PASCUAL [id number] / [id number] / [id number] / cc: Lalo Walker M.D. [facility] [address] [place] [address] documented i n this encounter Plan of Treatment Not on filedocumented as of this encounter Visit Diagnoses Not on filedocumented in this encounter"
--- OUTSIDE RECORDS SUMMARY | ~2018-08-20 | XMS | Encounter Summary ---
Demographics + + + | Address | [address] [place] [address] | | | [place] [address] | + + + | Home Phone [...] + + + | Author | [facility] | + + + | Organization | [facility] | + + + | Address | Unknown | + + + | Phone | Unavailable | + + + Support + + + + + | Name | Relationship | Address | Phone | + + + + + | Hector Mack | ECON | [address] | | | | | [place] | | | | | [address] | | + + + + + Care Team Providers + +------+ + | Care Plumbing Inspector Name | Role | Phone | [...] 06/02/ | Office | Preoperative | 1, [facility] Agricultural Equipment Sales Engineer [address] | Other Specified | | 2007 | Visit | Medicine Clinic at | [facility] [address] | Pre-Operative | | | | [facility] 4th Floor [address] | [place] [address] | Examination (Primary | | | | [address] | | Dx) | | | | Code: [address] | | | | | | for Health and | | | | | | Healing,4th Floor | | | | | | [place], [place] | | | | | | [address] | | | | | | [phone] | | | +--------+---------+ + + + [...] | + + + + + | [facility] DEPARTMENT OF | [address] | [place] [address] | | | PATHOLOGY | [address] | | | + + + + + | [place] DEPARTMENT OF | [address] | [place] [address] | | | PATHOLOGY | [address] [...] Performed At | + + + | [id number] Estimated GFR = 48 mL/min/1.73 sq m if non- | [facility] | | [id number] Estimated GFR = 59 mL/min/1.73 sq m [...] + + | [facility] | [address] | [place] [address] | | | PATHOLOGY | [address] | | | + + + + + | [facility] | [address] | [place] [address] | | | PATHOLOGY | [address] [...] + + + | Please click | [facility] DEPT OF | | on view image for the detailed interpretation from D2S results. | CARDIOLOGY | | | | + + + + + + + + | Performing | Address | City/State/Zipcode | Phone Number | | Organization | | | | + + + + + | [facility] DEPT OF | [address] | [place], [place] | | | CARDIOLOGY | [address] | [address] | | + + + + + | [facility] DE[facility] OF | [address] | [place], [place] | | | CARDIOLOGY | [address] | [address] | | + + + + + documented in this encounter Visit Diagnoses + + | Diagnosis | + + | Other specified pre-operative examination - Primary | + + documented in this encounter
--- OUTSIDE RECORDS SUMMARY | ~2018-08-20 | XMS | Encounter Summary ---
Demographics + + + | Address | [address] [place] [address] | | | [place] [address] | + + + | Home Phone [...] [place] | | | | | [address] | | + + + + + Care Team Providers + +------+ + | Care Valet Service Attendant Name | Role | Phone | [...] | Digestive Health | Her[place]th Ayala, | [place]; | | 2005 | Visit | Center [address] | | Obesity | | | | [address] Mailcode: | | | | | | [facility] | | | | | | Health and Healing, | | | | | | 6th floor [place], | | | | | | [place] [address] | | | | | | [phone] | | | +--------+---------+ + + + [...] The next will be in 2 m [facility] time. documented in this encounter Plan of Treatment Not on filedocumented as of this encounter Visit Diagnoses + + | Diagnosis | + + | Achalasia Achalasia and cardiospasm | + + | Obesity Obesity, unspecified | + + documented in this encounter
--- OUTSIDE RECORDS SUMMARY | ~2018-08-20 | XMS | Encounter Summary ---
Demographics + + + | Address | [address] [place] [address] | | | [place] [address] | + + + | Home Phone [...] [place] | | | | | [address] | | + + + + + Care Team Providers + +------+ + | Care Cracking Still Operator Name | Role | Phone | [...] 2005 | Activity | Hermila Muir | [address] | | | | | [facility] Mailcode: | [place], [place] | | | | | [address] [place], [place] | [address] | | | | | [address] | [phone] | | | | | [phone] | | | +--------+ + + + [...]
--- OUTSIDE RECORDS SUMMARY | ~2018-08-20 | XMS | Encounter Summary ---
Demographics + + + | Address | [address] [place] [address] | | | [place] [address] | + + + | Home Phone | | + + + | Preferred Language | Unknown | + + + | Marital Status | | + + + | Caodaism Affiliation | PRO | + + + | Race | White | + + + | Ethnic Group | Not or | + + + Author + + + | Author | [facility] | + + + | Organization | [facility] | + + + | Address | Unknown | + + + | Phone | Unavailable | + + + Support + + + + + | Name | Relationship | Address | Phone | + + + + + | Hector Mack | ECON | [address] | | | | | [place] | | | | | [address] | | + + + + + Care Team Providers + +------+ + | Care Senior Solutions Architect Name | Role | Phone [...] | | | | | | [place] [address] | | | +--------+--------+ + + + [...]
--- OUTSIDE RECORDS SUMMARY | ~2018-08-20 | XMS | Encounter Summary ---
Demographics + + + | Address | [address] [address] [address] | | | [place] [address] | + + + | Home Phone [...] [place] | | | | | [address] | | + + + + + Care Team Providers + +------+ + | Care Assistant Coach Name | Role | Phone | [...] | Visit | Medical at [facility] [address] | [address] Figueredo [address] | (Primary Dx) | | | | Floor [address] | [address], | | | | | [facility] Mail Code: | [place] [address] | | | | | [address] [facility] | [phone] | | | | | Health and Healing, | | | | | | 16 floor | | | | | | [place], [place] | | | | | | [address] | | | | | | [phone] | | | +--------+---------+ + + + [...] in 06/06 --s/p CABG in 2000 in [facility] --s/p cholecystectomy 35 years ago --s/p [...] weeks Julia Buckley PA-C Department of Dermatology [facility] and [facility] documented in this encounter Plan of Treatment Not on filedocumented as of this encounter Visit Diagnoses + + | Diagnosis | + + | 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
--- OUTSIDE RECORDS SUMMARY | ~2018-08-20 | XMS | Encounter Summary ---
Demographics + + + | Address | [address] [facility] [address] | | | [place] [address] | + + + | Home Phone [...] [place] | | | | | [address] | | + + + + + Care Team Providers + +------+ + | Care Radiology Nurse Name | Role | Phone | + +------+ + | Tuan Chan MD | PCP | | + +------+ + Encounter Details +--------+ + + + + | Date | Type | Department | Care Team | Description | +--------+ + + + + | 02/05/ | Respiratory | | Other, Faculty | | | 2005 | Therapy | | [phone] | | +--------+ + + + + [...] + + + | RESPIRATORY | Pt's cigar machine feeder and | | | | | CARE [...] [facility] | [address] | [place], [place] | | | DIAGNOSTICS - | [address] | [address] | | | PULMONARY FUNCTION | | | | + + + + + documented in this encounter Visit Diagnoses Not on filedocumented in this encounter"
--- OUTSIDE RECORDS SUMMARY | ~2018-08-20 | XMS | Encounter Summary ---
Demographics + + + | Address | [address] [place] [address] | | | [place] [address] | + + + | Home Phone [...] [place] | | | | | [address] | | + + + + + Care Team Providers + +------+ + | Care Entry Examiner Name | Role | Phone | [...] | | Transcribed | | [address] [place], | | | | | | [place] [address] | | | | | | [phone] | | | | | | | [...] Pedraza MD - 06/18/2007 12:00 AM PDT [id number] | | [id number] ARETHA RAE [id number] | | [id number] Date: 06/18/2007 Attending Surgeon: Noe Hdez M.D. | | Turner And Former Automatic(s): Bryan Pedraza M.D. Preoperative Diagnosis(es): Right | | urolithiasis. Postoperative Diagnosis(es): Right urolithiasis. Procedures | | Performed: 1. Rigid cystourethroscopy. 2. Right retrograde pyelogram. 3. Right flexible | | nephroureteroscopy with holmium laser lithotripsy. 4. Right ureteral stent placement | | (6-Mosotho x 24 cm). 5. Fluoroscopy with interpretation. [...] case. After | | surgical pause, a 21-Mosotho rigid cystoscope was inserted into the bladder [...] both proximally and distally. An | | 18-Mosotho Mirza catheter was then placed and filled [...] | | Chey Pedraza M.D. D / [id number] / [id number] / 10032 / | | [id number] Reviewed or Edited By Bryan Pedraza | [...] | | | After surgical pause, a 21-Mosotho rigid cystoscope was inserted into the | [...] both proximally and distally. An | | 18-Mosotho | | Mirza catheter was then placed [...] | | BDD / HS | | [id number] / [id number] / [id number] / 10159 | | | | | | | [...]
--- OUTSIDE RECORDS SUMMARY | ~2018-08-20 | XMS | Encounter Summary ---
Demographics + + + | Address | [address] [place] [address] | | | [place] [address] | + + + | Home Phone [...] [place] | | | | | [address] | | + + + + + Care Team Providers + +------+ + | Care Looseleaf Binder Coverer Name | Role | Phone | + [...] | Registratio | [address] | [address] | | | | n | [facility] Mailcode: | [place], [place] | | | | | [address] [place], [place] | [address] | | | | | [address] | [phone] | | | | | [phone] | | | +--------+ + + + [...] [facility] DEPARTMENT | [address] | [place] [address] | | | PATHOLOGY | [address] | | | + + + + + | [facility] DEPARTMENT | [address] | [place] [address] | | | PATHOLOGY | [address] | | | + + + + + PROTHROMBIN TIME (06/25/2005 9:45 AM PST) + + + + + + | Component | Value | Ref Range | Performed | Pathologist | | | | | At | Signature | + + + + + + | INR | 0.90Comment: | 0.90 - 1.20 INR | [facility] | | | | PT INR | [...] + + + + | [facility] | [facility] | [place] [address] | | | PATHOLOGY | [address] | | | + + + + + | [facility] | [address] [facility] | [place] [address] | | | PATHOLOGY | [address] [...] Performed At | + + + | [id number] Estimated GFR > 60 mL/min/1.73 sq m if non- | [facility] | | [id number] Estimated GFR > 60 mL/min/1.73 sq m [...] | + + + + + | [facility] DEPARTMENT | [address] [place] [address] | [place] [address] | | | PATHOLOGY | [address] | | | + + + + + | [facility] | [address] [facility] | [place] [address] | | | PATHOLOGY | [address] | | | + + + + + documented in this encounter Visit Diagnoses Not on filedocumented in this encounter"
--- OUTSIDE RECORDS SUMMARY | ~2018-08-20 | XMS | Clinical Summary ---
Demographics + + + | Address | [address] | | | [place] [address] | + + + | Home Phone | | + + + | Preferred Language | Unknown | + + + | Marital Status | | + + + | Hinduism Affiliation | PRO | + + + | Race | White | + + + | Ethnic Group | Not or | + + + Author + + + | Author | [facility] | + + + | Organization | [facility] | + + + | Address | Unknown | + + + | Phone | Unavailable | + + + Support + + + + + | Name | Relationship | Address | Phone | + + + + + | Hector Mack | ECON | [address] | | | | | [place] | | | | | [address] | | + + + + + Care Team Providers + +------+ + | Care Food Operations Manager Name | Role | Phone | + +------+ + | Tuan Chan MD | PP | | + +------+ + Source Comments AMY is fully live on both [facility] Ambulatory and [facility] InPatient.[facility] Allergies + + + + + [...] | | | | | | | [address] | | + +--------+ +--------+ + +--------+ | MEDICAID [place] | OHP | xxxxxxxx | 07/01/19 | [phone] | [address] | Medica | | | PLUS | | 10-Pre | 6 | [address] | id | | | OPEN | | sent | | [place] | | | | CARD | | | | [address] | | + +--------+ +--------+ + +--------+ [...] demetrius | | | 4 (Home) | [address] | + +--------+ +--------+ + + Advance Directives + + + + + | Type | Date Recorded | Patient | Explanation | | | | Independent Jeweler | | + + + + + | Advance | | | | | Directives and | | | | | Living Will | | | | + + + + + | Power of | | | | | Quality Auditor | | | | + + + [...]
--- OUTSIDE RECORDS SUMMARY | ~2018-08-20 | XMS | Encounter Summary ---
Demographics + + + | Address | [address] [place] [address] | | | [place] [address] | + + + | Home Phone [...] [place] | | | | | [address] | | + + + + + Care Team Providers + +------+ + | Care Entry Level Web Developer Name | Role | Phone | [...] as of this encounter Progress Notes Interface, Health Center Assistant In - 07/27/2005 2:07 AM PDT [id number] 07/25/2005 07/25/2005 [id number] ARETHA RAE [address] [place] [address] or July 25, 2005 Tuan Chan M.D. [address] [place], [place] RE: GERMAINE CARIAS MR #: [id number] Dear Dr. Chan: Your patient Ms. Germaine Carias returned for an office visit at [facility] on , July 25, 2005. She, [...] this kind referral. Sincerely, Wes Wolff M.D. [facility] / [id number] / [id number] / [id number] / cc: Papi Johnson M.D. [facility] General Surgery documented i n this encounter Plan of Treatment Not on filedocumented as of this encounter Visit Diagnoses Not on filedocumented in this encounter"
--- OUTSIDE RECORDS SUMMARY | ~2018-08-20 | XMS | Encounter Summary ---
Demographics + + + | Address | [address] | | | [place] [address] | + + + | Home Phone [...] [place] | | | | | [address] | | + + + + + Care Team Providers + +------+ + | Care Lumber Carrier Operator Name | Role | Phone | + +------+ + | Tuan Chan MD | PCP | | + +------+ + Encounter Details +--------+ + + + + | Date | Type | Department | Care Team | Description | +--------+ + + + + | 06/17/ | Results | Urology Adult | Noe Hdez, | | | 2007 | Only | [address] | [address] | | | | | Mail Code: CH10U | [place], [place] | | | | | [facility] | [address] | | | | | and [facility] | [phone] | | | | | Floor [place], [place] | | | | | | [address] | | | | | | [phone] | | | +--------+ + + + [...] | | | | | placement. A | | | | | | laminated right upper | | | | | [...] | | + +---------+ + + | [facility] DEPARTMENT OF | | | | | RADIOLOGY | | | | + +---------+ + + documented in this encounter Visit Diagnoses Not on filedocumented in this encounter"
--- OUTSIDE RECORDS SUMMARY | ~2018-08-20 | XMS | Encounter Summary ---
Demographics + + + | Address | [address] [place] [address] | | | [place] [address] | + + + | Home Phone [...] [place] | | | | | [address] | | + + + + + Care Team Providers + +------+ + | Care Derrickman Helper Name | Role | Phone | [...] | | | | | | [facility] | | | | | | Health and Healing, | | | | | | 6th floor [place], | | | | | | [place] [address] | | | | | | [phone] | | | +--------+---------+ + + + [...]
--- OUTSIDE RECORDS SUMMARY | ~2018-08-20 | XMS | Encounter Summary ---
Demographics + + + | Address | [address] | | | [place] [address] | + + + | Home Phone | | + + + | Preferred Language | Unknown | + + + | Marital Status | | + + + | Hoahaoism Affiliation | PRO | + + + | Race | White | + + + | Ethnic Group | Not or | + + + Author + + + | Author | [facility] | + + + | Organization | [facility] | + + + | Address | Unknown | + + + | Phone | Unavailable | + + + Support + + + + + | Name | Relationship | Address | Phone | + + + + + | Hector Mack | ECON | [address] | | | | | [place] | | | | | [address] | | + + + + + Care Team Providers + +------+ + | Care Signals Analyst Name | Role | Phone | [...] Powell MD | | | | | [facility] Mailcode: | | | | | | RPB07 [place], [place] | | | | | | [address] | | | | | | [phone] | | | +--------+ + + + [...] DEPARTMENT OF | [address] | [place] [address] | | | PATHOLOGY | [address] | | | + + + + + | [place] DEPARTMENT OF | [address] [facility] | [place] [address] | | | PATHOLOGY | [address] [...] | [facility] | [address] [place] [address] | [place] [address] | | | PATHOLOGY | [address] | | | + + + + + | [facility] DEPARTMENT | [address] [place] [address] | [place] [address] | | | PATHOLOGY | [address] [...] DEPARTMENT OF | [address] | [place] [address] | | | PATHOLOGY | [address] | | | + + + + + | [facility] DEPARTMENT OF | [address] | [place] [address] | | | PATHOLOGY | [address] [...] DEPARTMENT OF | [address] | [place] [address] | | | PATHOLOGY | [address] | | | + + + + + | [facility] DEPARTMENT | [address] | [place] [address] | | | PATHOLOGY | [address] | | | + + + + + PHOSPHORUS, PLASMA (02/08/2006 6:43 AM PST) + +-------+ + + + | Component | Value | Ref Range | Performed | Pathologist | | | | | At | Signature | + +-------+ + + + | PHOSPHORUS, | 2.8 | 2.4 - 4.7 mg/dL | [facility] | | | PLASMA | | | [...] | + + + + + | [facility] DEPARTMENT OF | [address] [facility] | [place] [address] | | | PATHOLOGY | [address] | | | + + + + + | [facility] DEPARTMENT OF | [address] [facility] | [place] [address] | | | PATHOLOGY | [address] [...] DEPARTMENT OF | [address] | [place] [address] | | | PATHOLOGY | [address] | | | + + + + + | [facility] DEPARTMENT OF | [address] | [place] [address] | | | PATHOLOGY | [address] [...] | + + + + + | [facility] DEPARTMENT OF | [address] | [place] [address] | | | PATHOLOGY | [address] | | | + + + + + | [place] DEPARTMENT OF | [address] | [place] [address] | | | PATHOLOGY | [address] | | | + + + [...] [facility] | [address] [facility] | [place] [address] | | | PATHOLOGY | [address] | | | + + + + + | [facility] | [address] [facility] | [place] [address] | | | PATHOLOGY | [address] | | | + + + + + PHOSPHORUS, PLASMA (02/08/2006 4:30 AM PST) + +-------+ + + + | Component | Value | Ref Range | Performed | Pathologist | | | | | At | Signature | + +-------+ + + + | PHOSPHORUS, | 2.7 | 2.4 - 4.7 mg/dL | [facility] | | | PLASMA [...] | + + + + + | [facility] DEPARTMENT OF | [address] [facility] | [place] [address] | | | PATHOLOGY | [address] | | | + + + + + | [place] DEPARTMENT OF | [address] [facility] | [place] [address] | | | PATHOLOGY | [address] [...] [facility] | [address] [facility] | [place] [address] | | | PATHOLOGY | [address] | | | + + + + + | [facility] | [address] [facility] | [place] [address] | | | PATHOLOGY | [address] [...] [facility] | [address] [facility] | [place] [address] | | | PATHOLOGY | [address] | | | + + + + + | [facility] | [address] [place] [address] | [place] [address] | | | PATHOLOGY | [address] [...] | + + + + + | [facility] DEPARTMENT OF | [address] | [place] [address] | | | PATHOLOGY | [address] | | | + + + + + | [place] DEPARTMENT OF | [address] | [place] [address] | | | PATHOLOGY | [address] [...] [facility] | [address] | [place] [address] | | | PATHOLOGY | [address] | | | + + + + + | [facility] | [address] [place] [address] [address] | [place] [address] | | | PATHOLOGY | [address] [...] [facility] | [address] [facility] | [place] [address] | | | PATHOLOGY | [address] | | | + + + + + | [facility] | [address] [facility] | [place] [address] | | | PATHOLOGY | [address] [...] DEPARTMENT OF | [address] | [place] [address] | | | PATHOLOGY | [address] | | | + + + + + | [facility] DEPARTMENT | [address] | [place] [address] | | | PATHOLOGY | [address] [...] | + + + + + | [facility] DEPARTMENT OF | [address] | [place] [address] | | | PATHOLOGY | [address] | | | + + + + + | [facility] DEPARTMENT OF | [address] | [place] [address] | | | PATHOLOGY | [address] [...] [facility] | [address] [facility] | [place] [address] | | | PATHOLOGY | [address] | | | + + + + + | [facility] | [address] [facility] | [place] [address] | | | PATHOLOGY | [address] | | | + + + + + MAGNESIUM, PLASMA (02/07/2006 4:30 AM PST) + +-------+ + + + | Component | Value | Ref Range | Performed | Pathologist | | | | | At | Signature | + +-------+ + + + | MAGNESIUM,P | 1.9 | 1.8 - 2.5 mg/dL | [facility] | | | LASMA [...] | + + + + + | [facility] DEPARTMENT OF | [address] | [place] [address] | | | PATHOLOGY | [address] | | | + + + + + | [place] DEPARTMENT OF | [address] | [place] [address] | | | PATHOLOGY | [address] [...] DEPARTMENT OF | [address] | [place] [address] | | | PATHOLOGY | [address] | | | + + + + + | [facility] DEPARTMENT OF | [address] | [place] [address] | | | PATHOLOGY | [address] [...] | + + + + + | [facility] DEPARTMENT OF | [address] | [place] [address] | | | PATHOLOGY | [address] | | | + + + + + | [facility] DEPARTMENT OF | [address] | [place] [address] | | | PATHOLOGY | [address] [...] No. | | | | | | [phone], medical | | | | | | record [phone], | | | | | | ICD-9 [...] [facility] | [address] | [place] [address] | | | PATHOLOGY | [address] | | | + + + + + | [facility] | [address] | [place] [address] | | | PATHOLOGY | [address] [...] DEPARTMENT OF | [address] | [place] [address] | | | PATHOLOGY | [address] | | | + + + + + | [facility] DEPARTMENT OF | [address] | [place] [address] | | | PATHOLOGY | [address] [...] | + + + + + | [facility] DEPARTMENT OF | [address] | [place] [address] | | | PATHOLOGY | [address] | | | + + + + + | [place] DEPARTMENT OF | [address] | [place] [address] | | | PATHOLOGY | [address] [...] | + + + + + | [facility] DEPARTMENT | [address] [facility] | [place] [address] | | | PATHOLOGY | [address] | | | + + + + + | [facility] DEPARTMENT OF | [facility] | [place] [address] | | | PATHOLOGY | [address] [...] | + + + + + | [facility] DEPARTMENT | [address] [facility] | [place] [address] | | | PATHOLOGY | [address] | | | + + + + + | [facility] DEPARTMENT OF | [address] [facility] | [place] [address] | | | PATHOLOGY | [address] [...] | + + + + + | [facility] DEPARTMENT OF | [facility] [address] | [place] [address] | | | PATHOLOGY | [address] | | | + + + + + | [place] DEPARTMENT OF | [address] | [place] [address] | | | PATHOLOGY | [address] [...] [facility] | [address] [facility] | [place] [address] | | | PATHOLOGY | [address] | | | + + + + + | [facility] | [facility] | [place] [address] | | | PATHOLOGY | [address] [...] | + + + + + | [facility] DEPARTMENT OF | [address] | [place] [address] | | | PATHOLOGY | [address] | | | + + + + + | [facility] DEPARTMENT OF | [address] | [place] [address] | | | PATHOLOGY | [address] [...] DEPARTMENT OF | [address] | [place] [address] | | | PATHOLOGY | [address] | | | + + + + + | [facility] | [address] | [place] [address] | | | PATHOLOGY | [address] [...] + + | Performing | Address | City/State/[facility] | Phone Number | | Organization [...] by | | | | | | [facility] | | | | | | [facility]. | | | | + + + + + + + + | Specimen | + + | | + + + + + + + | Performing | Address | City/State/Zipcode | Phone Number | | Organization | | | | + + + + + | [facility] | [address] | [place] [address] | | | LABORATORY | | | | + + + + + documented in this encounter Visit Diagnoses Not on filedocumented in this encounter"
--- OUTSIDE RECORDS SUMMARY | ~2018-08-20 | XMS | Encounter Summary ---
Demographics + + + | Address | [address] | | | [place] [address] | + + + | Home Phone [...] [place] | | | | | [address] | | + + + + + Care Team Providers + +------+ + | Care Waredresser Name | Role | Phone | + +------+ + | Tuan Chan MD | PCP | | + +------+ + Encounter Details +--------+ + + + + | Date | Type | Department | Care Team | Description | +--------+ + + + + | 10/24/ | Results | General Surgery | Papi Johnson MD | | | 2005 | Only | [address] | [address] | | | | | [address] | [facility], | | | | | Mailcode: L223A | [place] [address] | | | | | Physicians An | [phone] | | | | | [address] [place], | | | | | | [place] [address] | | | | | | [phone] | | | +--------+ + + + [...] in | | | | | | appearance. On the | | | | | | first swallow of | | | | | | barium,the swallowed | | | | | [...] | | | | | | ofthis | | | | | | examination. The | | | | | | small amount of barium | | | | | | that enters thestomach | | | | | | exits normally and | | | | | | rapidly | | | | | | present. There is a | | | | | | tinyhiatal hernia | | | | | | present, but no definite | | | | | | associated reflux. | | | | | | IMPRESSION:1. Finding | | | | | | s are consistent with | | | | [...]
--- OUTSIDE RECORDS SUMMARY | ~2018-08-20 | XMS | Encounter Summary ---
Demographics + + + | Address | [address] | | | [place] [address] | + + + | Home Phone [...] Author | [facility] | + + + | Organization | [facility] | + + + | Address | Unknown | + + + | Phone | Unavailable | + + + Support + + + + + | Name | Relationship | Address | Phone | + + + + + | Hector Mack | ECON | [address] | | | | | [place] | | | | | [address] | | + + + + + Care Team Providers + +------+ + | Care Waiter/Waitress First Class Name | Role | Phone | + [...] MD | | | | n | [facility] Mailcode: | | | | | | RPB07 [place], [place] | | | | | | [address] | | | | | | [phone] | | | +--------+ + + + [...] DEPARTMENT OF | [address] | [place] [address] | | | PATHOLOGY | [address] | | | + + + + + | [facility] DEPARTMENT OF | [address] | [place] [address] | | | PATHOLOGY | [address] [...] Performed At | + + + | [id number] Estimated GFR > 60 mL/min/1.73 sq m if non- | [facility] | | [id number] Estimated GFR > 60 mL/min/1.73 sq m [...] | [facility] DEPARTMENT OF | [address] [facility] | [place] [address] | | | PATHOLOGY | [address] | | | + + + + + | [facility] DEPARTMENT OF | [address] [facility] | [place] [address] | | | PATHOLOGY | [address] [...] + + | [facility] | [address] [facility] | [place] [address] | | | PATHOLOGY | [address] | | | + + + + + | [facility] | [address] [facility] | [place] [address] | | | PATHOLOGY | [address] | | | + + + + + documented in this encounter Visit Diagnoses Not on filedocumented in this encounter"
--- OUTSIDE RECORDS SUMMARY | ~2018-08-20 | XMS | Encounter Summary ---
Demographics + + + | Address | [address] | | | [place] [address] | + + + | Home Phone [...] [address] | | | | | [place] | | | | | [address] | | + + + + + Care Team Providers + +------+ + | Care Permanent Waver Name | Role | Phone | [...] | | Transcribed | | Mary Becker [place], | | | | | | [place] [address] | | | | | | [phone] | | | | | | | [...] Pedraza MD - 06/18/2007 12:00 AM PDT [id number] | | [id number] [address] [id number] | | [id number] Date: 06/18/2007 Attending Surgeon: Noe Hdez M.D. | | Brand Inspector(s): Bryan Pedraza M.D. Preoperative Diagnosis(es): Right | | urolithiasis. Postoperative Diagnosis(es): Right urolithiasis. Procedures | | Performed: 1. Rigid cystourethroscopy. 2. Right retrograde pyelogram. 3. Right flexible | | nephroureteroscopy with holmium laser lithotripsy. 4. Right ureteral stent placement | | (6-Equatorial Guinean x 24 cm). 5. Fluoroscopy with interpretation. [...] case. After | | surgical pause, a 21-Equatorial Guinean rigid cystoscope was inserted into the bladder [...] both proximally and distally. An | | 18-Equatorial Guinean Mirza catheter was then placed and filled [...] | | Chey Pedraza M.D. D / [id number] / [id number] / [id number] / | | [id number] Reviewed or Edited By Bryan Pedraza | [...] | | | After surgical pause, a 21-Equatorial Guinean rigid cystoscope was inserted into the | [...] both proximally and distally. An | | 18-Equatorial Guinean | | Mirza catheter was then placed [...] | | BDD / HS | | [id number] / [id number] / [id number] / [id number] | | | | | | | [...]
--- OUTSIDE RECORDS SUMMARY | ~2018-08-20 | XMS | Encounter Summary ---
Demographics + + + | Address | [address] | | | [place] [address] | + + + | Home Phone [...] [place] | | | | | [address] | | + + + + + Care Team Providers + +------+ + | Care Actuary Manager Name | Role | Phone | [...] Baker | | | | | | [place], [place] | | | | | | [address] | | | +--------+ + + + [...] | + + | 02/06/2006 11:10 AM [facility] Anesthesia PostOp Report | | | | Patient: GERMAINE CARIAS [facility] Rec: [id number] Sex F Bdate: 1945 | | Date/Time Data | | Entered Into [facility] | | Anesth PostOp | | Surgery Date [id number] 02/06/06 11:10 | | Anesthesiologist OLEG ASCENCIO 02/06/06 11:10 | | Resident Anesthesiolog JULIEN FRYE 02/06/06 11:10 | | | + + documented in this encounter Visit Diagnoses Not on filedocumented in this encounter"
--- OUTSIDE RECORDS SUMMARY | ~2018-08-20 | XMS | Encounter Summary ---
Demographics + + + | Address | [address] | | | [place] [address] | + + + | Home Phone [...] + + | Author | [facility] | + + + | Organization | [facility] | + + + | Address | Unknown | + + + | Phone | Unavailable | + + + Support + + + + + | Name | Relationship | Address | Phone | + + + + + | Hector Mack | ECON | [address] | | | | | [place] | | | | | [address] | | + + + + + Care Team Providers + +------+ + | Care Lacquer Mixer Name | Role | Phone | [...] | | | | | | | [facility] | | | | [facility] | | | | | | | [facility] | | | | | | | ([facility]) | | | | | | | [place], | | | | | | | [place] [address] | | | | | | | Phone: | | | | | | | [phone] | | | | | | | Fax: | | | | | | | [phone] | +--------+--------+ + + + + Encounter [...] Birch Kennedi | | | | | [id number] | [place], [place] | | | | | [facility] | [address] | | | | | ([facility]) | [phone] | | | | | [place] [address] | | | | | | [phone] | | | +--------+ + + + [...] to urinate. HAVING A URETERAL STENT: Call: [facility] Urology/Renal Transplant at If you have any of the following: Difficulty breathing or unusual shortness of breath Excessive bleeding, drainage at the operative site Fevers, chills, increased pain that is not relieved by pain medications Persistent nausea or vomiting Other SPECIFIC concerns, such as: If you are unable to urinate. Follow Up Appointments: Dr. Hdez in 2 weeks Follow Up Tests: (Tests at [facility] must be entered into [facility]) Ureteral stent removal Discharge Patient [...] this involves carrying a urine collection bag pot tender d to your back, which requires proper [...] problems, you can discuss it with your decommissioning well site manager and colleagues so that possible temporary [...] this happens, you should contact the urologist sonography technologist for [place]. IS THERE POSSIBILITY OF A URINARY TRACT [...] urine. For medical emergencies, call 911. Call: [facility] Urology/Renal Transplant at If you have any of the following: Difficulty breathing or unusual shortness of breath Excessive bleeding, drainage at the operative site Fevers, chills, increased pain that is not relieved by pain medications Persistent nausea or vomiting Other SPECIFIC concerns, such as: If you are unable to urinate. Follow Up Appointments: Dr. Hdez in 2 weeks Follow Up Tests: (Tests at [facility] must be entered into [facility]) Ureteral stent removal Discharge Patient To: Home Discharging Provider: GAUTAM TAVERAS MD Date Completed: 09/08/2008 [facility] After CYSTOSCOPY Follow the guidelines [...] from 8:00 4:30, call the Urology Clinic [phone]. After hours, weekend and holidays call the Hospital [facility] at [phone]. Ask for them to page your doctor. [...] | | | | | acid.Performed by [employer] | | | | | | [facility] | | | | | | [place] [address] | | | | | | [phone][employer]. | | | | | | Gume [...] | + + + + + | [facility] | [address] | [place] [address] | | | PATHOLOGY | [address] [...]
--- OUTSIDE RECORDS SUMMARY | ~2018-08-20 | XMS | Encounter Summary ---
Demographics + + + | Address | [address] | | | [place] [address] | + + + | Home Phone [...] [place] | | | | | [address] | | + + + + + Care Team Providers + +------+ + | Care Private Equity Analyst Name | Role | Phone | [...] Isaiah | | | | | at [facility] | [facility] | | | | | [address] | [place] [address] | | | | | [facility] | | | | | | Mailcode: OP12B Isaiah | | | | | | [facility] | | | | | | [place], | | | | | | [place] [address] | | | | | | [phone] | | | +--------+ + + + [...] view image for the detailed interpretation from [facility]. | CARDIOLOGY | + + + + + + + + | Performing | Address | City/State/Zipcode | Phone Number | | Organization | | | | + + + + + | [facility] | [address] | [place], [place] | | | CARDIOLOGY | [facility] | [address] | | + + + + + documented in this encounter Visit Diagnoses Not on filedocumented in this encounter"
--- OUTSIDE RECORDS SUMMARY | ~2018-08-20 | XMS | Encounter Summary ---
Demographics + + + | Address | [address] | | | [place] [address] | + + + | Home Phone [...] [place] | | | | | [address] | | + + + + + Care Team Providers + +------+ + | Care Airline Captain Name | Role | Phone | + [...] [address] | | | | n | [facility] Mailcode: | Mary Becker [place], | | | | | [address] [place], [place] | [place] [address] | | | | | [address] | [phone] | | | | | [phone] | | | +--------+ + + + [...]
--- OUTSIDE RECORDS SUMMARY | ~2018-08-20 | XMS | Encounter Summary ---
Demographics + + + | Address | [address] | | | [place] [address] | + + + | Home Phone [...] [place] | | | | | [address] | | + + + + + Care Team Providers + +------+ + | Care Digital Marketing Executive Name | Role | Phone | [...] | | | | | Procedures | [address] | [place] | | | | | CONSULT TO | [facility] | [facility] | | | | | [place] | [place], [place] | CHILDREN | | | | | | [address] | [address] [facility] | | | | | | Phone: | DEACON BYRNE | | | | | | [phone] | [place], | | | | | | Fax: | [place] [address] | | | | | | [phone] | Phone: | | | | | | | [phone] | | | | | | | Fax: | | | | | | | [phone] | +--------+--------+ + + + + Reason [...] Dx) | | | | Surgery at [facility] [address] | [place], [place] | | | | | [address]ila [address] Mail | [address] | | | | | Code: [facility] Center | [phone] | | | | | for Health and | | | | | | [facility], [facility] Floor | | | | | | [place], [place] | | | | | | [address] | | | | | | [phone] | | | +--------+---------+ + + + [...] with Dr. Vasquez. She has seen a graduate fellow without any change in her rash. She [...] known rash that was seen by a graduate fellow, per patient. There was no specific treatab [...]
--- OUTSIDE RECORDS SUMMARY | ~2018-08-20 | XMS | Encounter Summary ---
Demographics + + + | Address | [address] | | | [place] [address] | + + + | Home Phone [...] [place] | | | | | [address] | | + + + + + Care Team Providers + +------+ + | Care Automobile Parker Name | Role | Phone | + [...] Powell MD | | | | | [facility] Mailcode: | | | | | | [id number] [place], [place] | | | | | | [address] | | | | | | [phone] | | | +--------+ + + + [...] DEPARTMENT OF | [address] | [place] [address] | | | PATHOLOGY | [address] | | | + + + + + | [place] DEPARTMENT OF | [address] [facility] | [place] [address] | | | PATHOLOGY | [address] [...] + + + + | [facility] | [address] [place] [address] | [place] [address] | | | PATHOLOGY | [address] | | | + + + + + | [facility] DEPARTMENT | [address] [place] [address] | [place] [address] | | | PATHOLOGY | [address] [...] DEPARTMENT OF | [address] | [place] [address] | | | PATHOLOGY | [address] | | | + + + + + | [facility] DEPARTMENT OF | [address] | [place] [address] | | | PATHOLOGY | [address] [...] OF | [address] | [place] [address] | | | PATHOLOGY | [address] | | | + + + + + | [facility] DEPARTMENT | [address] | [place] [address] | | | PATHOLOGY | [address] | | | + + + + + PHOSPHORUS, PLASMA (02/08/2006 6:43 AM PST) + +-------+ + + + | Component | Value | Ref Range | Performed | Pathologist | | | | | At | Signature | + +-------+ + + + | PHOSPHORUS, | 2.8 | 2.4 - 4.7 mg/dL | DESU | | | PLASMA | | | [...] | + + + + + | [facility] DEPARTMENT OF | [address] [facility] | [place] [address] | | | PATHOLOGY | [address] | | | + + + + + | [facility] DEPARTMENT OF | [address] [facility] | [place] [address] | | | PATHOLOGY | [address] [...] OF | [address] | [place] [address] | | | PATHOLOGY | [address] | | | + + + + + | [facility] DEPARTMENT OF | [address] | [place] [address] | | | PATHOLOGY | [address] [...] | + + + + + | [facility] DEPARTMENT OF | [address] | [place] [address] | | | PATHOLOGY | [address] | | | + + + + + | [place] DEPARTMENT OF | [address] | [place] [address] | | | PATHOLOGY | [address] [...] + + + + | [facility] | [address] [facility] | [place] [address] | | | PATHOLOGY | [address] | | | + + + + + | [facility] | [address] [facility] | [place] [address] | | | PATHOLOGY | [address] | | | + + + + + PHOSPHORUS, PLASMA (02/08/2006 4:30 AM PST) + +-------+ + + + | Component | Value | Ref Range | Performed | Pathologist | | | | | At | Signature | + +-------+ + + + | PHOSPHORUS, | 2.7 | 2.4 - 4.7 mg/dL | [facility] | | | PLASMA | | [...] | + + + + + | [facility] DEPARTMENT OF | [address] [facility] | [place] [address] | | | PATHOLOGY | [address] | | | + + + + + | [place] DEPARTMENT OF | [address] [facility] | [place] [address] | | | PATHOLOGY | [address] [...] + + + + | [facility] | [address] [facility] | [place] [address] | | | PATHOLOGY | [address] | | | + + + + + | [facility] | [address] [facility] | [place] [address] | | | PATHOLOGY | [address] [...] + + + + | [facility] | [address] [facility] | [place] [address] | | | PATHOLOGY | [address] | | | + + + + + | [facility] | [address] [place] [address] | [place] [address] | | | PATHOLOGY | [address] [...] | + + + + + | [facility] DEPARTMENT OF | [address] | [place] [address] | | | PATHOLOGY | [address] | | | + + + + + | [place] DEPARTMENT OF | [address] | [place] [address] | | | PATHOLOGY | [address] [...] + + + + | [facility] | [address] | [place] [address] | | | PATHOLOGY | [address] | | | + + + + + | [facility] | [address] [place] [address] [address] | [place] [address] | | | PATHOLOGY | [address] [...] + + + + | [facility] | [address] [facility] | [place] [address] | | | PATHOLOGY | [address] | | | + + + + + | [facility] | [address] [facility] | [place] [address] | | | PATHOLOGY | [address] [...] OF | [address] | [place] [address] | | | PATHOLOGY | [address] | | | + + + + + | [facility] DEPARTMENT | [address] | [place] [address] | | | PATHOLOGY | [address] [...] | + + + + + | [facility] DEPARTMENT OF | [address] | [place] [address] | | | PATHOLOGY | [address] | | | + + + + + | [facility] DEPARTMENT OF | [address] | [place] [address] | | | PATHOLOGY | [address] [...] + + + + | [facility] | [address] [facility] | [place] [address] | | | PATHOLOGY | [address] | | | + + + + + | [facility] | [address] [facility] | [place] [address] | | | PATHOLOGY | [address] | | | + + + + + MAGNESIUM, PLASMA (02/07/2006 4:30 AM PST) + +-------+ + + + | Component | Value | Ref Range | Performed | Pathologist | | | | | At | Signature | + +-------+ + + + | MAGNESIUM,P | 1.9 | 1.8 - 2.5 mg/dL | [facility] | | | LASMA | | [...] | + + + + + | [facility] DEPARTMENT OF | [address] | [place] [address] | | | PATHOLOGY | [address] | | | + + + + + | [place] DEPARTMENT OF | [address] | [place] [address] | | | PATHOLOGY | [address] [...] OF | [address] | [place] [address] | | | PATHOLOGY | [address] | | | + + + + + | [facility] DEPARTMENT OF | [address] | [place] [address] | | | PATHOLOGY | [address] [...] | + + + + + | [facility] DEPARTMENT OF | [address] | [place] [address] | | | PATHOLOGY | [address] | | | + + + + + | [facility] DEPARTMENT OF | [address] | [place] [address] | | | PATHOLOGY | [address] [...] No. | | | | | | [phone], medical | | | | | | record [phone], | | | | | | ICD-9 [...] + + + + | [facility] | [address] | [place] [address] | | | PATHOLOGY | [address] | | | + + + + + | [facility] | [address] | [place] [address] | | | PATHOLOGY | [address] [...] DEPARTMENT OF | [address] | [place] [address] | | | PATHOLOGY | [address] | | | + + + + + | [facility] DEPARTMENT OF | [address] | [place] [address] | | | PATHOLOGY | [address] [...] | + + + + + | [facility] DEPARTMENT OF | [address] | [place] [address] | | | PATHOLOGY | [address] | | | + + + + + | [place] DEPARTMENT OF | [address] | [place] [address] | | | PATHOLOGY | [address] [...] | + + + + + | [facility] DEPARTMENT | [address] [facility] | [place] [address] | | | PATHOLOGY | [address] | | | + + + + + | [facility] | [facility] | [place] [address] | | | PATHOLOGY | [address] [...] | + + + + + | [facility] DEPARTMENT | [address] [facility] | [place] [address] | | | PATHOLOGY | [address] | | | + + + + + | [facility] DEPARTMENT OF | [address] [facility] | [place] [address] | | | PATHOLOGY | [address] [...] | + + + + + | [facility] DEPARTMENT OF | [facility] | [place] [address] | | | PATHOLOGY | [address] | | | + + + + + | [place] DEPARTMENT OF | [address] | [place] [address] | | | PATHOLOGY | [address] [...] + + + + | [facility] | [address] [facility] | [place] [address] | | | PATHOLOGY | [address] | | | + + + + + | [facility] | [facility] | [place] [address] | | | PATHOLOGY | [address] [...] | + + + + + | [facility] DEPARTMENT OF | [address] | [place] [address] | | | PATHOLOGY | [address] | | | + + + + + | [facility] DEPARTMENT OF | [address] | [place] [address] | | | PATHOLOGY | [address] [...] DEPARTMENT OF | [address] | [place] [address] | | | PATHOLOGY | [address] | | | + + + + + | [facility] | [address] | [place] [address] | | | PATHOLOGY | [address] [...] + + | Performing | Address | City/State/[facility] | Phone Number | | Organization | [...] by | | | | | | [facility] | | | | | | [facility]. | | | | + + + + + + + + | Specimen | + + | | + + + + + + + | Performing | Address | City/State/Zipcode | Phone Number | | Organization | | | | + + + + + | [facility] | [address] | [place] [address] | | | LABORATORY | | | | + + + + + documented in this encounter Visit Diagnoses Not on filedocumented in this encounter"
--- OUTSIDE RECORDS SUMMARY | ~2018-08-20 | XMS | Encounter Summary ---
Demographics + + + | Address | [address] | | | [place] [address] | + + + | Home Phone [...] [place] | | | | | [address] | | + + + + + Care Team Providers + +------+ + | Care Mortgage Loan Processing Clerk Name | Role | Phone | + +------+ + | Tuan Chan MD | PCP | | + +------+ + Encounter Details +--------+ + + + + | Date | Type | Department | Care Team | Description | +--------+ + + + + | 02/13/ | Study Director | Urology Fertility | Renato Chow MD | Kidney stones | | 2010 | | [address] | [address] | (Primary Dx) | | | | Mail Code: CH10U | [place], [place] | | | | | [facility] | [address] | | | | | and | [phone] | | | | | Floor [place], [place] | | | | | | [address] | | | | | | [phone] | | | +--------+ + + + [...]
--- OUTSIDE RECORDS SUMMARY | ~2018-08-20 | XMS | Encounter Summary ---
Demographics + + + | Address | [address] | | | [place] [address] | + + + | Home Phone [...] [place] | | | | | [address] | | + + + + + Care Team Providers + +------+ + | Care Sports Attorney Name | Role | Phone | [...] | 2008 | Visit | Medical at [facility] | FABIO Figueredo [address] | (Primary Dx) | | | | Floor [address] | [address] [place], | | | | | [facility] Mail Code: | [place] [address] | | | | | [facility] [facility] | [phone] | | | | | Health and Healing, | | | | | | 16 floor | | | | | | [place], [place] | | | | | | [address] | | | | | | [phone] | | | +--------+---------+ + + + [...] 06/06 --s/p CABG in 2000 in [facility] --s/p cholecystectomy 35 years ago --s/p appy [...] weeks Julia Buckley PA-C Department of Dermatology [facility] documented in this encounter Plan of Treatment Not on filedocumented as of this encounter Visit Diagnoses + + | Diagnosis | + + | 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
--- OUTSIDE RECORDS SUMMARY | ~2018-08-20 | XMS | Encounter Summary ---
Demographics + + + | Address | [address] | | | [place] [address] | + + + | Home Phone [...] Author | [facility] | + + + | Organization | [facility] | + + + | Address | [...] Team Providers + +------+ + | Care Non Destructive Testing Inspector Name | Role | Phone | [...] | | | Mail Code: CH10U | [place], [place] | | | | | [facility] | [address] | | | | | and Healing, | [phone] | | | | | Floor [place], [place] | | | | | | [address] | | | | | | [phone] | | | +--------+---------+ + + + [...] [facility] | [address] | [place], [place] | | | [place], POINT OF CARE | [address] | [address] | | | TESTS | | | | + + + + + | [facility]-POINT OF CARE | [address] | [place], [place] | | | TESTS | [address] | [address] | | + + + + + documented in this encounter Visit Diagnoses + + | Diagnosis | + + | Urolithiasis - Primary Urinary calculus, unspecified | + + documented in this encounter"
--- OUTSIDE RECORDS SUMMARY | ~2018-08-20 | XMS | Encounter Summary ---
Demographics + + + | Address | [address] | | | [place] [address] | + + + | Home Phone [...] [place] | | | | | [address] | | + + + + + Care Team Providers + +------+ + | Care Paper Cone Grader Name | Role | Phone | + [...] | | | | | | | [facility] | | | | | | | [place], | | | | | | | [place] [address] | | | | | | | Phone: | | | | | | | [phone] | | | | | | | Fax: | | | | | | | [phone] | +--------+--------+ + + + + Encounter Details +--------+ + + + + | Date | Type | Department | Care Team | Description | +--------+ + + + + | 05/10/ | Hospital | [facility] [address] | Aysha Blackburn | | | 2008 - | Encounter | ELOY Crow MD | | | | | [id number] MIMA | | | | 05/11/ | | [place] Thras[place] | | | | 2008 | | [place] [address] | | | +--------+ + + + [...] [facility] PACU [facility] On POD[facility]1, the patient was ambulating, [...] clinic a ppointment Call: Plastic surgery resident integration technician at If you have any of [...] Aysha Blackburn MD, 1 week, please call [phone] for appointment Follow Up Tests: (Tests at [facility] must be entered into [facility]) None Condition On Discharge: Good Vital Signs [...] Discharged Via: Wheelchair Mode of Transportation: Other: [employer] Accompanied by: Staff Transport Company Name: (when applicable) [employer] Phone #: Discharge Nurse: PASQUALE MEYERS RN [...] week for drain removal Lizz Soto MS4 [address] [place] [address] Kassandra Herman - 05/01 12:00 AM Germaine Garnett [id number] [facility] REC NUMBER: [id number] NAME : Germaine Heard DATE : 1945 Admit Date: 05/10/2008 Discharge Date: 05/11/2008 PHYSICIAN'S REQUEST FOR HOME HEALTH SERVICES Relevant History: Location to receive services if other than home: Allergies: Height: Weight: Ordering Physician: [address] [place] [address] Physician to follow for ongoing home health orders: PCP Name: PCP Phone: Discharge Need(s): 1. Transportation Discharge Vendor: Medicaid - [place] Discharge Suggested First Visit/Delivery Date: Discharge Service/Equipment: Barber: Oralia Wang documented in this encounter Plan [...] + + + + | PRODUCT | [id number] | | [facility] | | | UNIT [facility] DE[facility] | [address] | [place] [address] | | | PATHOLOGY | [address] | | | + + + + + | [facility] DEPARTMENT OF | [address] [facility] | [place] [address] | | | PATHOLOGY | [address] [...] + + + + | PRODUCT | [id number] | | [facility] | | | UNIT [...] | + + + + + | [facility] | [facility] | [place] [address] | | | PATHOLOGY | [address] | | | + + + + + | [facility] DEPARTMENT OF | [facility] | [place] [address] | | | PATHOLOGY | [address] | | | + + + + + OPERATION RECORD (05/10/2008 12:00 AM PST) + + + | Narrative | Performed At | + + + | [id number] | | | [id number] | | | [id number] ARETHA | | | GERMAINE [id number] | | | Date: 05/10/2008 Attending | | | Surgeon: Aysha Blackburn MD | | | Raymond Mill Operator(s): Lang | | | Chey Pisano Preoperative [...] We then | | | placed two 19-Citizen Of [place] Ruel drains in the subcutaneous plane. The [...] MD LORIE Schaeffer / | | | [id number] / [id number] / [id number] / | | | | | + + + + + | Procedure Note | + + | Aysha Blackburn MD - 05/10/2008 12:[address] [facility] [id number] | | [id number] [address] | | [id number] Date: 05/10/2008 Attending Surgeon: | | Aysha Blackburn MD Raymond Mill Operator(s): Lang Pisano M.D. | | Preoperative Diagnosis(es):Panniculitis. [...] ensured. We then | | placed two 19-Citizen [place] Ruel drains in the subcutaneous plane. The [...] Crow | | MD LORIE Blackburn / [id number] / [id number] / [id number] / T: 05/12/2008 | | | | [...] w as ensured. We then placed two 19-Citizen [place] Ruel drains in the subcutaneous plane. The [...] | | | |JAM / HS | |[id number] / [id number] / [id number] / | | | | | | [...] + +---------+ +------+--------+---+ | morphine 5 mg/mL CLAIMS ADJUSTER CROP infusion | New Bag | 05/10/19 | [...]
--- OUTSIDE RECORDS SUMMARY | ~2018-08-20 | XMS | Encounter Summary ---
Demographics + + + | Address | [address] | | | [place] [address] | + + + | Home Phone [...] [place] | | | | | [address] | | + + + + + Care Team Providers + +------+ + | Care Pediatric Acute Care Unit Nurse Name | Role | Phone | + +------+ + | Tuan Chan MD | PCP | | + +------+ + Encounter Details +--------+ + + + + | Date | Type | Department | Care Team | Description | +--------+ + + + + | 11/22/ | Document-Sc | UNKNOWN DEPARTMENT | Unknown . | | | 2005 | anned | [address] [facility] | | | | | | [facility] | | | | | | [place], [place] | | | | | | [address] | | | +--------+ + + + [...]
--- OUTSIDE RECORDS SUMMARY | ~2018-08-20 | XMS | Encounter Summary ---
Demographics + + + | Address | [address] | | | [place] [address] | + + + | Home Phone [...] [place] | | | | | [address] | | + + + + + Care Team Providers + +------+ + | Care Hair Colorist Name | Role | Phone | + [...] | | | | CONSULT TO | [place], [place] | Mail Code: | | | | | [place] [facility] | [address] | [facility] | | | | | SKIN ABD [place] | | for Health | | | | | REDUCTION | | and Healing, | | | | | OF LARGE | | 5th Floor | | | | | BREAST | | [place], [place] | | | | | Procedure to | | [address] | | | | | be | | Phone: | | | | | performed: | | [phone] | | | | | breast | [...] | | | | | | | ([address]) and | | | | | | | Reduction of | | | | | | | large | | | | | | | breast | | | | | | | ([address]) | | | +--------+--------+ + + + [...] [facility] [address] | [facility] [place] | | | | | [address] | [address] | | | | | Code: [facility] Center | [phone] | | | | | for Health and | | | | | | Healing, 5th Floor | | | | | | [place], [place] | | | | | | [address] | | | | | | [phone] | | | +--------+---------+ + + + [...] 18 years ago Occupation: unemployed, lives in [place] Family History Problem Relation Heart Mother Diabetes [...] per side. Plan: --Patient will followup with bar staff, who will re-evaluate her rash prior to proceedi ng with breast surgery. Requested that derm forward their note to us. --Our surgery consultant will provide the patient with a key [...]
--- OUTSIDE RECORDS SUMMARY | ~2018-08-20 | XMS | Encounter Summary ---
Demographics + + + | Address | [address] | | | [place] [address] | + + + | Home Phone [...] [place] | | | | | [address] | | + + + + + Care Team Providers + +------+ + | Care Professor Of Medicine Name | Role | Phone | + [...] as of this encounter Progress Notes Interface, Packaging Machine Supplies Distributor In - 05/24/2005 2:07 AM [facility] [id number] 05/23/2005 05/23/2005 [id number] [address] [place] [address] [facility] [address] [place] [address] or May 23, 2005 Bryan Garza M.D. [address] [place] [address] RE: GERMAINE CARIAS MR #: [id number] Dear Dr. Garza: I saw your patient, Mrs. Germaine Carias in my office on , May 23, 2005. I went over her records and those of Dr. Walker in [place]. This pleasant, obese, 59-year-old female has a [...] junction. Dilation was performed up to a 20-[employer]gandan Microvasive balloon, and the patient claims that [...] is unemployed. She smoked, has about a 21-esjr-disw smoking history but has not smoked in [...] Sincerely, Wes Wolff M.D. Ren / PASCUAL [id number] / [id number] / [id number] / cc: Lalo Walker M.D. [facility] [address] [place] [address] documented i n this encounter Plan of Treatment Not on filedocumented as of this encounter Visit Diagnoses Not on filedocumented in this encounter"
--- OUTSIDE RECORDS SUMMARY | ~2018-08-20 | XMS | Encounter Summary ---
Demographics + + + | Address | [address] | | | [place] [address] | + + + | Home Phone [...] [place] | | | | | [address] | | + + + + + Care Team Providers + +------+ + | Care Glue Reel Operator Name | Role | Phone [...] | | | | at [facility] | [facility] | | | | | [address] | [place] [address] | | | | | [facility] | | | | | | Mailcode: OP12B [address] | | | | | | [facility] | | | | | | [place], | | | | | | [place] [address] | | | | | | [phone] | | | +--------+ + + + [...] view image for the detailed interpretation from [employer] results. | CARDIOLOGY | + + + + + + + + | Performing | Address | City/State/Zipcode | Phone Number | | Organization | | | | + + + + + | [facility] | [address] | [place], [place] | | | CARDIOLOGY | [facility] | [address] | | + + + + + documented in this encounter Visit Diagnoses Not on filedocumented in this encounter"
--- OUTSIDE RECORDS SUMMARY | ~2018-08-20 | XMS | Encounter Summary ---
Demographics + + + | Address | [address] | | | [place] [address] | + + + | Home Phone [...] [place] | | | | | [address] | | + + + + + Care Team Providers + +------+ + | Care Multi Operation Forming Machine Setter Name | Role | Phone | [...] | Diagnoses | Dustin, | Jefry Med [facility] | | | | | rash, | Tuan Gooden MD | [address] | | | | | unclear | UGO | [address] | | | | | etiology | [address] | Mail Code: | | | | | Procedures | [facility] | CH16D Center | | | | | Consult | 2010 | for Health | | | | | | ARANZA ARIZMENDI, | and Healing, | | | | | | [place] [address] | 16th floor | | | | | | Phone: | [place], [place] | | | | | | [phone] | [address] | | | | | | Fax: | Phone: | | | | | | [phone] | [phone] | | | | | | | Fax: | | | | | | | [phone] | +--------+--------+ + + + + Encounter Details +--------+---------+ + + + | Date | Type | Department | Care Team | Description | +--------+---------+ + + + | 08/05/ | Office | Dermatology | Kaleb, Khoa Lee, | Rash and Other | | 2008 | Visit | Medical at [facility] 16th | ,PhD Gloria | Nonspecific Skin | | | | Floor [address] | Allergy Asthma | Eruption (Primary | | | | Ave Mail Code: | Dermatology [address] | Dx) | | | | CH16D Center for | [place] [address] | | | | | Health and [facility], | [place] [address] | | | | | 16 floor | [phone] | | | | | [place], [place] | | | | | | [address] | | | | | | [phone] | | | +--------+---------+ + + + [...] plan of care. Khoa Manuel MD, PhD Custom Shoe Designer And Maker, Department of Dermatology [facility] 08/05/2008 Genoveva Galeano Md - 08/05/2008 [...] skin culture done by Dr. Chan in [facility] prior to her gastric by pass [...] the day. She has never seen a mattress specialist. The patient's dermatology intake form was reviewed, signed, and dated. Her relevant PMH, F H, and SH includes: PAST MEDICAL HISTORY: --Gastric bypass in 02/[address] Johnson, used to weigh 450 pounds --s/p abdominoplasty in 06/06 --s/p CABG in 2000 in [facility] --s/p cholecystectomy 35 years ago --s/p [...] Natalie Olsen M.D. Resident, Department of Dermatology [facility] documented in th is encounter Plan of Treatment + + +--------+ + + | Name | Type | Priori | Associated Diagnoses | Order Schedule | | | | ty | | | + + +--------+ + + | ME BIOPSY OF SKIN | Procedures | Routin [...]
--- OUTSIDE RECORDS SUMMARY | ~2018-08-20 | XMS | Clinical Summary ---
Demographics + + + | Address | [address] | | | [place] [address] | + + + | Home Phone | | + + + | Preferred Language | Unknown | + + + | Marital Status | | + + + | Anglican Affiliation | PRO | + + + | Race | White | + + + | Ethnic Group | Not or | + + + Author + + + | Author | [facility] | + + + | Organization | [facility] | + + + | Address | Unknown | + + + | Phone | Unavailable | + + + Support + + + + + | Name | Relationship | Address | Phone | + + + + + | Hector Mack | ECON | [address] | | | | | [place] | | | | | [address] | | + + + + + Care Team Providers + +------+ + | Care Diagnostic Medical Sonographer Name | Role | Phone | + +------+ + | Tuan Chan MD | PP | | + +------+ + Source Comments AMY is fully live on both [facility] Ambulatory and [facility] InPatient.[facility] Allergies + + + [...] | | | | | | | [address] | | + +--------+ +--------+ + +--------+ | MEDICAID [place] | OHP | xxxxxxxx | 07/01/19 | [phone] | [address] | Medica | | | PLUS | | 10-Pre | 6 | [address] | id | | | OPEN | | sent | | [place] | | | | CARD | | | | [address] | | + +--------+ +--------+ + +--------+ [...] demetrius | | | 4 (Home) | [address] | + +--------+ +--------+ + + Advance Directives + + + + + | Type | Date Recorded | Patient | Explanation | | | | Dolly Driver | | + + + + + | Advance | | | | | Directives and | | | | | Living Will | | | | + + + + + | Power of | | | | | Barber Shop Operator | | | | + + + [...]
--- OUTSIDE RECORDS SUMMARY | ~2018-08-20 | XMS | Encounter Summary ---
Demographics + + + | Address | [address] | | | [place] [address] | + + + | Home Phone [...] [place] | | | | | [address] | | + + + + + Care Team Providers + +------+ + | Care Store Keeper Name | Role | Phone | + [...] | | | | | | CH[facility] | | | | | | Health and Healing, | | | | | | 6th floor [place], | | | | | | [place] [address] | | | | | | [phone] | | | +--------+---------+ + + + [...] Md - 03/03/2006 11:57 AM PSTMrs Jenni Makc is about 1 month post lap heller [...] The next will be in 2 m [facility] time. documented in this encounter Plan of Treatment Not on filedocumented as of this encounter Visit Diagnoses + + | Diagnosis | + + | Achalasia Achalasia and cardiospasm | + + | Obesity Obesity, unspecified | + + documented in this encounter
--- OUTSIDE RECORDS SUMMARY | ~2018-08-20 | XMS | Encounter Summary ---
Demographics + + + | Address | [address] | | | [place] [address] | + + + | Home Phone [...] [place] | | | | | [address] | | + + + + + Care Team Providers + +------+ + | Care Back Pad Inspector Name | Role | Phone | [...] | | | | | | | [facility] | | | | | | | [place], | | | | | | | [place] [address] | | | | | | | Phone: | | | | | | | [phone] | | | | | | | Fax: | | | | | | | [phone] | +--------+--------+ + + + + Encounter Details +--------+---------+ + + + | Date | Type | Department | Care Team | Description | +--------+---------+ + + + | 05/09/ | Office | Plastic and | Resident, Pls | Panniculitis | | 2008 | Visit | Reconstructive | [address] | (Primary Dx) | | | | Surgery at [facility] [address] | [place] [address] | | | | | [address] Mail | | | | | | Code: CH5P [place] | | | | | | [facility] and | | | | | | [facility] Floor | | | | | | [place], [place] | | | | | | [address] | | | | | | [phone] | | | +--------+---------+ + + + [...] 1 Years of Education: N/A 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
--- OUTSIDE RECORDS SUMMARY | ~2018-08-20 | XMS | Encounter Summary ---
Demographics + + + | Address | [address] | | | [place] [address] | + + + | Home Phone [...] [place] | | | | | [address] | | + + + + + Care Team Providers + +------+ + | Care Headend Technician Name | Role | Phone | + +------+ + | Tuan Chan MD | PCP | | + +------+ + Encounter Details +--------+ + + + + | Date | Type | Department | Care Team | Description | +--------+ + + + + | 08/05/ | Results | Dermatology | Khoa Manuel, | | | 2008 | Only | Medical at [facility] 16 | ,PhD Gloria | | | | | Floor [address] | Allergy Asthma | | | | | [place] Mail Code: | Dermatology 9495 | | | | | [facility] | [facility] | | | | | Health and Healing, | [place] [address] | | | | | 16 floor | [phone] | | | | | [place], [place] | | | | | | [address] | | | | | | [phone] | | | +--------+ + + + [...] | | | | MNT) | IV [id number] | | | | | | DESCRIPTION:Punch [...] + + | [facility] | [address]aias [address], [address] | [place] [address] | | | DERMATOPATHOLOGY | [address] | | | + + + + + documented in this encounter Visit Diagnoses Not on filedocumented in this encounter"
--- OUTSIDE RECORDS SUMMARY | ~2018-08-20 | XMS | Encounter Summary ---
Demographics + + + | Address | [address] | | | [place] [address] | + + + | Home Phone [...] [place] | | | | | [address] | | + + + + + Care Team Providers + +------+ + | Care Cheese Packer Name | Role | Phone | [...] MD | | | | n | [facility] Mailcode: | | | | | | [address] [place], [place] | | | | | | [address] | | | | | | [phone] | | | +--------+ + + + [...] DEPARTMENT OF | [address] | [place] [address] | | | PATHOLOGY | [address] | | | + + + + + | [facility] DEPARTMENT OF | [address] | [place] [address] | | | PATHOLOGY | [address] [...] Performed At | + + + | [id number] Estimated GFR > 60 mL/min/1.73 sq m if non- | [facility] | | [id number] Estimated GFR > 60 mL/min/1.73 sq m [...] + | [facility] DEPARTMENT OF | [address] | [place] [address] | | | PATHOLOGY | [address] | | | + + + + + | [facility] DEPARTMENT OF | [address] [facility] | [place] [address] | | | PATHOLOGY | [address] [...] [facility] | [address] | [place] [address] | | | PATHOLOGY | [address] | | | + + + + + | [facility] | [address] | [place] [address] | | | PATHOLOGY | [address] | | | + + + + + documented in this encounter Visit Diagnoses Not on filedocumented in this encounter"
--- OUTSIDE RECORDS SUMMARY | ~2018-08-20 | XMS | Encounter Summary ---
Demographics + + + | Address | [address] | | | [place] [address] | + + + | Home Phone [...] [place] | | | | | [address] | | + + + + + Care Team Providers + +------+ + | Care Cartridge Feeder Name | Role | Phone | [...]
--- OUTSIDE RECORDS SUMMARY | ~2018-08-20 | XMS | Encounter Summary ---
Demographics + + + | Address | [address] | | | [place] [address] | + + + | Home Phone [...] [place] | | | | | [address] | | + + + + + Care Team Providers + +------+ + | Care Environmental Economist Name | Role | Phone | [...] | | | | | Surgery at [facility] [address] | | | | | | [address] Mail | | | | | | Code: [facility] Center | | | | | | for Health and | | | | | | [facility], 5th [facility] | | | | | | [place], [place] | | | | | | [address] | | | | | | [phone] | | | +--------+---------+ + + + [...]
--- OUTSIDE RECORDS SUMMARY | ~2018-08-20 | XMS | Encounter Summary ---
Demographics + + + | Address | [address] | | | [place] [address] | + + + | Home Phone [...] [place] | | | | | [address] | | + + + + + Care Team Providers + +------+ + | Care Exceptional Student Education Teacher Name | Role | Phone | [...] Isaiah | | | | | at [facility] | [facility] | | | | | [address] | [place] [address] | | | | | [facility] | | | | | | Mailcode: OP12B Isaiah | | | | | | [facility] | | | | | | [place], | | | | | | [place] [address] | | | | | | [phone] | | | +--------+ + + + [...] uncontrolled(250.72) | | | | | | ([facility]) Obesity | | | | | [...] + + + | Please click | [facility] DEPT OF | | on view image for the detailed interpretation from [employer] results. | CARDIOLOGY | | | | + + + + + + + + | Performing | Address | City/State/Zipcode | Phone Number | | Organization | | | | + + + + + | [facility] DEPT OF | [address] | [place], [place] | | | CARDIOLOGY | [facility] | [address] | | + + + + + | [facility] DEPT OF | [address] | [place], [place] | | | CARDIOLOGY | [facility] | [address] | | + + + + + documented in this encounter Visit Diagnoses Not on filedocumented in this encounter
--- OUTSIDE RECORDS SUMMARY | ~2018-08-20 | XMS | Encounter Summary ---
Demographics + + + | Address | [address] | | | [place] [address] | + + + | Home Phone [...] [place] | | | | | [address] | | + + + + + Care Team Providers + +------+ + | Care Special Delivery Messenger Name | Role | Phone | + [...] | | | | | | | [facility] | | | | | | | [place], | | | | | | | [place] [address] | | | | | | | Phone: | | | | | | | [phone] | | | | | | | Fax: | | | | | | | [phone] | +--------+--------+ + + + + Encounter Details +--------+---------+ + + + | Date | Type | Department | Care Team | Description | +--------+---------+ + + + | 05/09/ | Office | Plastic and | Resident, Pls | Panniculitis | | 2008 | Visit | Reconstructive | [address] | (Primary Dx) | | | | Surgery at [facility] [address] | [place] [address] | | | | | [address] Mail | | | | | | Code: CH5P [place] | | | | | | [facility] Health and | | | | | | [facility] Floor | | | | | | [place], [place] | | | | | | [address] | | | | | | [phone] | | | +--------+---------+ + + + [...] 1 Years of Education: N/A 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 Social History Main Topics Tobacco Use: Quit [...]
--- OUTSIDE RECORDS SUMMARY | ~2018-08-20 | XMS | Encounter Summary ---
Demographics + + + | Address | [address] [place] [address] | | | [place] [address] | + + + | Home Phone [...] [place] | | | | | [address] | | + + + + + Care Team Providers + +------+ + | Care Plate Keeper Name | Role | Phone | [...] Muir | | | | n | [facility] Mailcode: | [place], | | | | | [address] [place], [place] | [place] [address] | | | | | [address] | [phone] | | | | | [phone] | | | +--------+ + + + [...]
--- OUTSIDE RECORDS SUMMARY | ~2018-08-20 | XMS | Encounter Summary ---
Demographics + + + | Address | [address] | | | [place] [address] | + + + | Home Phone [...] [place] | | | | | [address] | | + + + + + Care Team Providers + +------+ + | Care Telecommunications Linesworker Name | Role | Phone | + [...] Procedure Note | + + | Interface, Clinical Instructor In - 02/05/2006 12:00 AM PST | | [id number] | | [id number] ANTONIETTAMACK GERMAINE [id number] | | | | Date: 02/05/2006 | | | | Attending Surgeon: Papi Johnson M.D. | | | | Interactive Multimedia Designer(s): Darrel Dunn M.D. | | | | [...] | | DS / HS | | [id number] / [id number] / [id number] / [id number] | | | | | | | | | | | | Reviewed or Edited By Darrel Dunn MD on 05-29-2006 | | Electronically signed by Papi Johnson 05-29-2006 11:17:53 AM | | | | | + + + + | Transcriptions | + + | Interface, Clinical Instructor In - 02/20/2006 2:34 AM PST | | [id number] | | [id number] ARETHA HERRON [id number] | | | | Date: 02/05/2006 | | | | Attending Surgeon: Herberth Ayala M.D. | | | | Interactive Multimedia Designer(s): Darrel Dunn M.D. | | | | [...] | | | RWO / | | [id number] / [id number] / [id number] / [id number] | | | | | | | | | | | | Electronically signed by Herberth Brambila 02-19-2006 11:24:19 AM | + + documented in this encounter Visit Diagnoses Not on filedocumented in this encounter"
--- OUTSIDE RECORDS SUMMARY | ~2018-08-20 | XMS | Encounter Summary ---
Demographics + + + | Address | [address] | | | [place] [address] | + + + | Home Phone [...] [place] | | | | | [address] | | + + + + + Care Team Providers + +------+ + | Care Circular Knife Cutter Machine Name | Role | Phone | [...] 2008 | Visit | Medical at [facility] 16th | FAB[address] Figuered[address] | (Primary Dx); | | | | Floor [address] | [address] [place], | Encounter for | | | | Ave Mail Code: | [place] [address] | Long-Term (Current) | | | | CH16D Center for | [phone] | Use of Other | | | | Health and Healing, | | Medications | | | | 16th floor | | | | | | [place], [place] | | | | | | [address] | | | | | | [phone] | | | +--------+---------+ + + + [...] --s/p CABG in 2000 in [facility] --s/p cholecystectomy 35 years ago --s/p [...] month Julia Buckley PA-C Department of Dermatology Replaced By [facility] and [facility] documented [...]
--- OUTSIDE RECORDS SUMMARY | ~2018-08-20 | XMS | Encounter Summary ---
Demographics + + + | Address | [address] | | | [place] [address] | + + + | Home Phone [...] + + | Author | [facility] | + + + | Organization | [facility] | + + + | Address | Unknown | + + + | Phone | Unavailable | + + + Support + + + + + | Name | Relationship | Address | Phone | + + + + + | Hector Mack | ECON | [address] | | | | | [place] | | | | | [address] | | + + + + + Care Team Providers + +------+ + | Care Pipe Fitter Soft Copper Name | Role | Phone | + +------+ + | Tuan Chan MD | PCP | | + +------+ + Encounter Details +--------+ + + + + | Date | Type | Department | Care Team | Description | +--------+ + + + + | 08/05/ | Results | Dermatology | Khoa Manuel, | | | 2008 | Only | Medical at [facility] 16 | ,PhD Gloria | | | | | Floor [address] | Allergy Asthma | | | | | [place] Mail Code: | Dermatology 9495 | | | | | [facility] | [facility] | | | | | Health and Healing, | [place] [address] | | | | | 16 floor | [phone] | | | | | [place], [place] | | | | | | [address] | | | | | | [phone] | | | +--------+ + + + [...] | | Results for this | | [facility]) | e | | | procedure [...] | | | | MNT) | IV [id number] | | | | | | DESCRIPTION:Punch [...] [facility] | [address], [address] | [place] [address] | | | DERMATOPATHOLOGY | [address] | | | + + + + + documented in this encounter Visit Diagnoses Not on filedocumented in this encounter"
--- OUTSIDE RECORDS SUMMARY | ~2018-08-20 | XMS | Encounter Summary ---
Demographics + + + | Address | [address] [place] [address] | | | [place] [address] | + + + | Home Phone [...] [place] | | | | | [address] | | + + + + + Care Team Providers + +------+ + | Care Category Development Analyst Name | Role | Phone | [...] 2005 | Activity | Hermila Muir | [address] | | | | | [facility] Mailcode: | [place], [place] | | | | | [address] [place], [place] | [address] | | | | | [address] | [phone] | | | | | [phone] | | | +--------+ + + + [...]
--- OUTSIDE RECORDS SUMMARY | ~2018-08-20 | XMS | Encounter Summary ---
Demographics + + + | Address | [address] [place] [address] | | | [place] [address] | + + + | Home Phone [...] [place] | | | | | [address] | | + + + + + Care Team Providers + +------+ + | Care Paediatric Thoracic Physician Name | Role | Phone | [...] [address] | | | | | | [place], [place] | | | | | | [address] | | | | | | [phone] | | | +--------+------+ + + + [...] + + documented in this encounter Results [facility] - BASIC METABOLIC SET (03/11/2011 5:13 PM [...] Test performed by: [facility] | [facility] | | Outpatient Lab CH[address] [place], [place] [address] | DEPARTMENT OF | | | PATHOLOGY | + + + + + + + + | Performing | Address | City/State/Zipcode | Phone Number | | Organization | | | | + + + + + | [facility] | [address] | [place] [address] | | | PATHOLOGY | [address] [...] cmnt | 150 - 420 K/cu | [facility] | | | COUNT, | | mm [...] Healing | [place] | | Outpatient Lab [facility] [address] [place], [place] [address] | DEPARTMENT OF | | Sent to Core Lab. | PATHOLOGY | + + + + + + + + | Performing | Address | City/State/Zipcode | Phone Number | | Organization | | | | + + + + + | [facility] | [address] | [place] [address] | | | PATHOLOGY | [address] | | | + + + + + documented in this encounter Visit Diagnoses + + | Diagnosis | + + | Kidney stone Calculus of kidney | + + documented in this encounter"
--- OUTSIDE RECORDS SUMMARY | ~2018-08-20 | XMS | Encounter Summary ---
Demographics + + + | Address | [address] | | | [place] [address] | + + + | Home Phone | | + + + | Preferred Language | Unknown | + + + | Marital Status | | + + + | Lutheran Affiliation | PRO | + + + | Race | White | + + + | Ethnic Group | Not or | + + + Author + + + | Author | [facility] | + + + | Organization | [facility] | + + + | Address | Unknown | + + + | Phone | Unavailable | + + + Support + + + + + | Name | Relationship | Address | Phone | + + + + + | Hector Mack | ECON | [address] | | | | | [place] | | | | | [address] | | + + + + + Care Team Providers + +------+ + | Care Wash Oil Cooler Operator Name | Role | Phone | [...] | | | Mail Code: CH10U | [place], [place] | | | | | [facility] | [address] | | | | | and [facility] | [phone] | | | | | Floor [place], [place] | | | | | | [address] | | | | | | [phone] | | | +--------+ + + + [...] | + +---------+ + + | [facility] DEPARTMENT OF | | | | | RADIOLOGY | | | | + +---------+ + + documented in this encounter Visit Diagnoses Not on filedocumented in this encounter"
--- OUTSIDE RECORDS SUMMARY | ~2018-08-20 | XMS | Encounter Summary ---
Demographics + + + | Address | [address] | | | [place] [address] | + + + | Home Phone [...] [place] bed[place] | | | | | [address] | | + + + + + Care Team Providers + +------+ + | Care Chute Operator Name | Role | Phone | [...] | | | | | | | [facility] | | | | | | | [place], | | | | | | | [place] [address] | | | | | | | Phone: | | | | | | | [phone] | | | | | | | Fax: | | | | | | | [phone] | +--------+--------+ + + + + Encounter Details +--------+ + + + + | Date | Type | Department | Care Team | Description | +--------+ + + + + | 05/10/ | Hospital | [facility] [address] | Aysha Blackburn | | | 2008 - | Encounter | ELOY Crow MD | | | | | [id number] MIMA | | | | 05/11/ | | MONICA Thrasher | | | | 2008 | | [place] [address] | | | +--------+ + + + [...] [facility] PACU [facility] On [facility], the patient was [...] clinic a ppointment Call: Plastic surgery resident rhinestone setter at If you have any of the [...] Aysha Blackburn MD, 1 week, please call [phone] for appointment Follow Up Tests: (Tests at [facility] must be entered into [facility]) None Condition On Discharge: Good Vital Signs [...] Discharged Via: Wheelchair Mode of Transportation: Other: [employer] Accompanied by: Staff Transport Company Name: (when applicable) [employer] Phone #: Discharge Nurse: PASQUALE MEYERS RN [...] ml Output 1560 ml Net 2145 ml MARCELEL: R 120, L 215 NAD Dressing c/d/i [...] week for drain removal Lizz Soto MS4 [address] [place] [address] Kassandra Herman - 05/01 12:00 AM Germaine Garnett [id number] [facility] REC NUMBER: [id number] NAME : Germaine Heard DATE : 1945 Admit Date: 05/10/2008 Discharge Date: 05/11/2008 PHYSICIAN'S REQUEST FOR HOME HEALTH SERVICES Relevant History: Location to receive services if other than home: Allergies: Height: Weight: Ordering Physician: [address] [place] [address] Physician to follow for ongoing home health orders: PCP Name: PCP Phone: Discharge Need(s): 1. Transportation Discharge Vendor: Medicaid - [place] Discharge Suggested First Visit/Delivery Date: Discharge Service/Equipment: Private Banker: Oralia Wang documented in this encounter Plan [...] + + + + | PRODUCT | [id number] | | [facility] | | | UNIT [...] | + + + + + | [facility] DEPARTMENT OF | [address] | [place] [address] | | | PATHOLOGY | [address] | | | + + + + + | [facility] DEPARTMENT OF | [address] [facility] | [place] [address] | | | PATHOLOGY | [address] [...] + + + + | PRODUCT | [id number] | | [facility] | | | UNIT [...] | + + + + + | [facility] | [facility] | [place] [address] | | | PATHOLOGY | [address] | | | + + + + + | [facility] DEPARTMENT OF | [facility] | [place] [address] | | | PATHOLOGY | [address] | | | + + + + + OPERATION RECORD (05/10/2008 12:00 AM PST) + + + | Narrative | Performed At | + + + | [id number] | | | [id number] | | | [id number] ARETHA | | | GERMAINE [id number] | | | Date: 05/10/2008 Attending | | | Surgeon: Aysha Blackburn MD | | | Boiler Water Tester(s): Lang | | | Chey Pisano Preoperative [...] We then | | | placed two 19-Saudi Arabian Ruel drains in the subcutaneous plane. The [...] MD LORIE Schaeffer / | | | [id number] / [id number] / [id number] / | | | | | + + + + + | Procedure Note | + + | Aysha Blackburn MD - 05/10/2008 12:00 AM [facility] [id number] | | [id number] ARETHA RAE | | [id number] Date: 05/10/2008 Attending Surgeon: | | Aysha Blackburn MD Boiler Water Tester(s): Lang Pisano M.D. | | Preoperative Diagnosis(es):Panniculitis. [...] ensured. We then | | placed two 19-Saudi Arabian Ruel drains in the subcutaneous plane. The [...] Crow | | MD LORIE Blackburn / [id number] / [id number] / [id number] / T: 05/12/2008 | | | | [...] w as ensured. We then placed two 19-Saudi Arabian Ruel drains in the subcutaneous plane. The [...] | | | |JAM / HS | |[id number] / [id number] / [id number] / | | | | | | [...] + +---------+ +------+--------+---+ | morphine 5 mg/mL TAG WRITER infusion | New Bag | 05/10/19 | [...]
--- OUTSIDE RECORDS SUMMARY | ~2018-08-20 | XMS | Encounter Summary ---
Demographics + + + | Address | [address] | | | [place] [address] | + + + | Home Phone [...] [place] | | | | | [address] | | + + + + + Care Team Providers + +------+ + | Care Inspector Raw Quartz Name | Role | Phone | + [...] | | | | | | [facility] | | | | | | Health and Healing, | | | | | | 6th floor [place], | | | | | | [place] [address] | | | | | | [phone] | | | +--------+ + + + [...] Performed At | + + + | [id number] Estimated GFR = 60 mL/min/1.73 sq m if non- | [facility] | | [id number] Estimated GFR > 60 mL/min/1.73 sq m [...] | [facility] | [address] | [place] [address] | | | PATHOLOGY | [address] | | | + + + + + | [facility] DEPARTMENT OF | [address] | [place] [address] | | | PATHOLOGY | [address] [...] DEPARTMENT OF | [address] | [place] [address] | | | PATHOLOGY | [address] | | | + + + + + | [facility] | [address] | [place], [place] [address] | | | PATHOLOGY | [address] | | | + + + + + documented in this encounter Visit Diagnoses + + | Diagnosis | + + | Obesity - Primary Obesity, unspecified | + + documented in this encounter"
--- OUTSIDE RECORDS SUMMARY | ~2018-08-20 | XMS | Encounter Summary ---
Demographics + + + | Address | [address] | | | [place] [address] | + + + | Home Phone [...] [place] | | | | | [address] | | + + + + + Care Team Providers + +------+ + | Care Milk Bottler Name | Role | Phone | + [...] Isaiah | | | | | at [facility] | [facility] | | | | | [address] | [place] [address] | | | | | [facility] | | | | | | Mailcode: OP12B Isaiah | | | | | | [facility] | | | | | | [place], | | | | | | [place] [address] | | | | | | [phone] | | | +--------+ + + + [...] + + + | Please click | [facility] DEPT OF | | on view image for the detailed interpretation from In[employer] Potato results. | CARDIOLOGY | | | | + + + + + + + + | Performing | Address | City/State/Zipcode | Phone Number | | Organization | | | | + + + + + | [facility] DEPT OF | [address] | [place], [place] | | | CARDIOLOGY | [facility] | [address] | | + + + + + | [facility] DEPT OF | [address] | [place], [place] | | | CARDIOLOGY | [facility] | [address] | | + + + + + documented in this encounter Visit Diagnoses Not on filedocumented in this encounter
--- OUTSIDE RECORDS SUMMARY | ~2018-08-20 | XMS | Encounter Summary ---
Demographics + + + | Address | [address] | | | [place] [address] | + + + | Home Phone [...] [place] | | | | | [address] | | + + + + + Care Team Providers + +------+ + | Care Clinical Specialist Vascular Name | Role | Phone | + +------+ + | Tuan Chan MD | PCP | | + +------+ + Encounter Details +--------+ + + + + | Date | Type | Department | Care Team | Description | +--------+ + + + + | 02/05/ | Respiratory | | Other, Faculty | | | 2005 | Therapy | | [phone] | | +--------+ + + + + [...] + + + | RESPIRATORY | Pt's folding machine setter and | | | | [...] [facility] | [address] | [place], [place] | | | DIAGNOSTICS - | [address] | [address] | | | PULMONARY FUNCTION | | | | + + + + + documented in this encounter Visit Diagnoses Not on filedocumented in this encounter"
--- OUTSIDE RECORDS SUMMARY | ~2018-08-20 | XMS | Encounter Summary ---
Demographics + + + | Address | [address] [place] [address] | | | [place] [address] | + + + | Home Phone [...] [place] | | | | | [address] | | + + + + + Care Team Providers + +------+ + | Care Information Technology Audit Manager Name | Role | Phone | [...] 01/14/ | Office | Preoperative | 1, [facility] Splicing Machine Operator Automatic [address] | Panniculitis; CAD | | 2007 | Visit | Medicine Clinic at | [facility] [address] | (Coronary Artery | | | | [facility] 4th Floor [address] | [place] [address] | Disease); DM Circ | | | | [address] | | Dis Type II, | | | | Code: [facility] | | Uncontrolled (HCC); | | | | for Health and | | Other Specified | | | | Healing,4th Floor | | Pre-Operative | | | | [place], [place] | | Examination | | | | [address] | | | | | | [phone] | | | +--------+---------+ + + + [...] | + + +--------+ + + | [place] COLLECTION VENOUS | Procedures | Routin | [...] | + + + + + | [facility] DEPARTMENT OF | [address] [facility] [address] | [place] [address] | | | PATHOLOGY | [address] | | | + + + + + | [facility] DEPARTMENT OF | [address] [facility] [address] | [place] [address] | | | PATHOLOGY | [address] [...] + + | [facility] | [address] [place] [address] [address] | [place] [address] | | | PATHOLOGY | [address] | | | + + + + + | [facility] | [address] | [place] [address] | | | PATHOLOGY | [address] [...] | + + + + + | [facility] DEPARTMENT OF | [address] | [place] [address] | | | PATHOLOGY | [address] | | | + + + + + | [facility] DEPARTMENT OF | [facility] [address] | [place] [address] | | | PATHOLOGY | [address] [...] + | [facility] | [address] | [place] [address] | | | PATHOLOGY | [address] | | | + + + + + | [facility] | [address] [facility] [address] | [place] [address] | | | PATHOLOGY | [address] [...] Performed At | + + + | [id number] Estimated GFR > 60 mL/min/1.73 sq m if non- | [facility] | | [place] [id number] Estimated GFR > 60 mL/min/1.73 sq m if | DEPARTMENT OF | | [place] GFR is estimated using the MDRD equation [...] + + | [facility] | [address] | [place] [address] | | | PATHOLOGY | [address] | | | + + + + + | [facility] DEPARTMENT OF | [address] | [place] [address] | | | PATHOLOGY | [address] [...] OF | [address] | [place] [address] | | | PATHOLOGY | [address] | | | + + + + + | [facility] DEPARTMENT | [address] | [place] [address] | | | PATHOLOGY | [address] [...] view image for the detailed interpretation from InCIBDO results. | CARDIOLOGY | | | | + + + + + + + + | Performing | Address | City/State/Zipcode | Phone Number | | Organization | | | | + + + + + | [facility] DEPT OF | [address] | [place], [place] | | | CARDIOLOGY | [address] | [address] | | + + + + + | [facility] DEPT OF | [address] | [place], [place] | | | CARDIOLOGY | [facility] | [address] | | + + + + + documented in this encounter Visit Diagnoses + + | Diagnosis | + + | Panniculitis Panniculitis, unspecified site | + + | CAD (coronary artery disease) Coronary atherosclerosis of unspecified type of vessel, | | eyak or graft | + + | Type II or unspecified type diabetes mellitus with peripheral circulatory disorders, | | uncontrolled(250.72) Type II or unspecified type diabetes mellitus with peripheral | | circulatory disorders, uncontrolled | + + | Other specified pre-operative examination | + + documented in this encounter
--- OUTSIDE RECORDS SUMMARY | ~2018-08-20 | XMS | Encounter Summary ---
Demographics + + + | Address | [address] | | | [place] [address] | + + + | Home Phone [...] [place] | | | | | [address] | | + + + + + Care Team Providers + +------+ + | Care Director Public Policy Name | Role | Phone | + [...] | Registratio | [address] | [address] | | | | n | [facility] Mailcode: | [place], [place] | | | | | [address] [place], [place] | [address] | | | | | [address] | [phone] | | | | | [phone] | | | +--------+ + + + [...]
--- OUTSIDE RECORDS SUMMARY | ~2018-08-20 | XMS | Encounter Summary ---
Demographics + + + | Address | [address] | | | [place] [address] | + + + | Home Phone [...] + + + | Author | [facility] | + + + | Organization | [facility] | + + + | Address | Unknown | + + + | Phone | Unavailable | + + + Support + + + + + | Name | Relationship | Address | Phone | + + + + + | Hector Mack | ECON | [address] | | | | | [place] | | | | | [address] | | + + + + + Care Team Providers + +------+ + | Care Business Technology Architect Name | Role | Phone | [...] | | | Mail Code: CH10U | [place], [place] | | | | | [facility] | [address] | | | | | and [facility], | [phone] | | | | | Floor [place], [place] | | | | | | [address] | | | | | | [phone] | | | +--------+ + + + [...] + + + + + | [facility] | [address] | [place] [address] | | | PATHOLOGY | [address] | | | + + + + + documented in this encounter Visit Diagnoses Not on filedocumented in this encounter"
--- OUTSIDE RECORDS SUMMARY | ~2018-08-20 | XMS | Encounter Summary ---
Demographics + + + | Address | [address] | | | [place] [address] | + + + | Home Phone [...] [place] | | | | | [address] | | + + + + + Care Team Providers + +------+ + | Care Scientific Advisor Name | Role | Phone | [...] Muir | | | | n | [facility] Mailcode: | [address] [place], | | | | | [address] [place], [place] | [place] [address] | | | | | [address] | [phone] | | | | | [phone] | | | +--------+ + + + [...]
--- OUTSIDE RECORDS SUMMARY | ~2018-08-20 | XMS | Encounter Summary ---
Demographics + + + | Address | [address] | | | [place] [address] | + + + | Home Phone [...] [place] | | | | | [address] | | + + + + + Care Team Providers + +------+ + | Care Waxer Operator Name | Role | Phone | + +------+ + | Tuan Chan MD | PCP | | + +------+ + Encounter Details +--------+ + + + + | Date | Type | Department | Care Team | Description | +--------+ + + + + | 02/13/ | Supervisor Electronic Coils | Urology Fertility | Renato Chow MD | Kidney stones | | 2010 | | [address] | [address] | (Primary Dx) | | | | Mail Code: CH10U | [place], [place] | | | | | [facility] | [address] | | | | | and | [phone] | | | | | Floor [place], [place] | | | | | | [address] | | | | | | [phone] | | | +--------+ + + + [...]
--- OUTSIDE RECORDS SUMMARY | ~2018-08-20 | XMS | Encounter Summary ---
Demographics + + + | Address | [address] | | | [place] [address] | + + + | Home Phone [...] [place] | | | | | [address] | | + + + + + Care Team Providers + +------+ + | Care Telephone Operator Receptionist Name | Role | Phone | + [...] | | | | | | | [facility] | | | | | | [facility] | | | | | | [facility] | | | | | | | ([facility]) | | | | | | | [place], | | | | | | | [place] [address] | | | | | | | Phone: | | | | | | | [phone] | | | | | | | Fax: | | | | | | | [phone] | +--------+--------+ + + + + Encounter [...] [address] | | | | | [facility] | [place], [place] | | | | | [facility] | [address] | | | | | ([facility]) | [phone] | | | | | [place] [address] | | | | | | [phone] | | | +--------+ + + + [...] unable to urinate. Follow Up Appointments: Dr. dHez in 2 weeks Follow Up Tests: (Tests at [facility] must be entered into [facility]) Ureteral stent removal Discharge Patient To: [...] this involves carrying a urine collection bag elastic attacher coverstitch d to your back, which requires proper [...] you can discuss it with your manager process and colleagues so that possible temporary adjustments [...] this happens, you should contact the urologist client relationship consultant for [place]. IS THERE POSSIBILITY OF A URINARY TRACT [...] at [facility] must be entered into [employer]) Ureteral stent removal Discharge Patient To: Home Discharging Provider: GAUTAM TAVERAS MD Date Completed: 09/08/2008 [facility] After CYSTOSCOPY Follow [...] from 8:00 4:30, call the Urology Clinic [phone]. After hours, weekend and holidays call the Hospital Motor Vehicle License Clerk at [phone]. Ask for them to page your doctor. [...] | | | | | acid.Performed by [facility] | | | | | | [facility] | | | | | | [place] [address] | | | | | | [phone].[employer]. | | | | | | Gume [...] [facility] | [address] | [place] [address] | | | PATHOLOGY | [address] [...]
--- OUTSIDE RECORDS SUMMARY | ~2018-08-20 | XMS | Encounter Summary ---
Demographics + + + | Address | [address] | | | [place] [address] | + + + | Home Phone [...] [place] | | | | | [address] | | + + + + + Care Team Providers + +------+ + | Care Technical Writing Lead/Mgr Name | Role | Phone | + [...] Pranay | | | | | | [address] | [address] | | | | | | [address] | [address] | | | | | | [address] | [place], [place] | | | | | | [place], [place] | [address] | | | | | | [address] | | | | | | | Phone: | | | | | | | [phone] | | | | | | | Fax: | | | | | | | [phone] | | +--------+--------+ + + + + Encounter Details +--------+---------+ + + + | Date | Type | Department | Care Team | Description | +--------+---------+ + + + | 11/20/ | Office | Cardiology - | Pranay Melendez MD | Dysmetabolic | | 2005 | Visit | General [address] [facility] | | Syndrome X; CAD | | | | [facility] [address] | | (Coronary Artery | | | | Mailcode: [id number] | | Disease); Sleep | | | | [facility] | | Apnea; Gout; DM Circ | | | | [address] [place], | | Dis Type II, | | | | [place] [address] | | Uncontrolled ([facility]); | | | | [phone] | | Dyslipidemia | +--------+---------+ + + [...] risk will be manageable. Furthermore, in the custodial weigh t loss will afford cardiovascualr prtection. [...] | + + + + + | [facility] | [address] | [place] [address] | | | PATHOLOGY | [address] | | | + + + + + | [facility] | [address] | [place] [address] | | | PATHOLOGY | [address] | | | + + + + + documented in this encounter Visit Diagnoses + + | Diagnosis | + + | Dysmetabolic syndrome X Dysmetabolic Syndrome X | + + | CAD (coronary artery disease) Coronary atherosclerosis of unspecified type of vessel, | | [place] or graft | + + | Sleep [...]
--- OUTSIDE RECORDS SUMMARY | ~2018-08-20 | XMS | Encounter Summary ---
Demographics + + + | Address | [address] | | | [place] [address] | + + + | Home Phone [...] [place] | | | | | [address] | | + + + + + Care Team Providers + +------+ + | Care Ob/Gyn Nurse Name | Role | Phone | [...] Muir | | | | n | [facility] Mailcode: | [address] [place], | | | | | [address] [place], [place] | [place] [address] | | | | | [address] | [phone] | | | | | [phone] | | | +--------+ + + + [...]
--- OUTSIDE RECORDS SUMMARY | ~2018-08-20 | XMS | Encounter Summary ---
Demographics + + + | Address | [address] | | | [place] [address] | + + + | Home Phone [...] [place] | | | | | [address] | | + + + + + Care Team Providers + +------+ + | Care Control Systems Specialist Name | Role | Phone | [...] | Disease); | | | | [address] | | Dyslipidemia; | | | | Mailcode: [id number] | | Dysmetabolic | | | | [facility] | | Syndrome X; Sleep | | | | [address] [place], | | Apnea; Gout; DM Circ | | | | [place] [address] | | Dis Type II, | | | | [phone] | | Uncontrolled (HCC) | +--------+ + [...] | [facility] | [address] [facility] [address] | [place] [address] | | | PATHOLOGY | [address] | | | + + + + + | [facility] | [address] | [place] [address] | | | PATHOLOGY | [address] | | | + + + + + documented in this encounter Visit Diagnoses + + | Diagnosis | + + | CAD (coronary artery disease) Coronary atherosclerosis of unspecified type of vessel, | | [place] or graft | + + | Dyslipidemia [...]
--- OUTSIDE RECORDS SUMMARY | ~2018-08-20 | XMS | Encounter Summary ---
Demographics + + + | Address | [address] | | | [place] [address] | + + + | Home Phone | | + + + | Preferred Language | Unknown | + + + | Marital Status | | + + + | Samaritan Affiliation | PRO | + + + | Race | White | + + + | Ethnic Group | Not or | + + + Author + + + | Author | [facility] | + + + | Organization | [facility] | + + + | Address | Unknown | + + + | Phone | Unavailable | + + + Support + + + + + | Name | Relationship | Address | Phone | + + + + + | Hector Mack | ECON | [address] | | | | | [place] | | | | | [address] | | + + + + + Care Team Providers + +------+ + | Care Bill Sorter Name | Role | Phone | [...] [address] | | | | | [facility] Mailcode: | [place], [place] | | | | | [address] [place], [place] | [address] | | | | | [address] | [phone] | | | | | [phone] | | | +--------+ + + + [...]
--- OUTSIDE RECORDS SUMMARY | ~2018-08-20 | XMS | Encounter Summary ---
Demographics + + + | Address | [address] | | | [place] [address] | + + + | Home Phone [...] [place] | | | | | [address] | | + + + + + Care Team Providers + +------+ + | Care Sea Air Land Officer Name | Role | Phone | [...] Pranay | | | | | | [address] | [address] | | | | | | [address] | [address] | | | | | | [address] | [place], [place] | | | | | | [place], [place] | [address] | | | | | | [address] | | | | | | | Phone: | | | | | | | [phone] | | | | | | | Fax: | | | | | | | [phone] | | +--------+--------+ + + + + Encounter Details +--------+---------+ + + + | Date | Type | Department | Care Team | Description | +--------+---------+ + + + | 11/20/ | Office | Cardiology - | Pranay Melendez MD | Dysmetabolic | | 2005 | Visit | General [address] [facility] | | Syndrome X; CAD | | | | [facility] [address] | | (Coronary Artery | | | | Mailcode: [id number] | | Disease); Sleep | | | | [facility] | | Apnea; Gout; DM Circ | | | | [address] [place], | | Dis Type II, | | | | [place] [address] | | Uncontrolled ([facility]); | | | | [phone] | | Dyslipidemia | +--------+---------+ + + [...] risk will be manageable. Furthermore, in the senior living weigh t loss will afford cardiovascualr prtection. [...] | + + + + + | [facility] | [address] | [place] [address] | | | PATHOLOGY | [address] | | | + + + + + | [facility] | [address] | [place] [address] | | | PATHOLOGY | [address] | | | + + + + + documented in this encounter Visit Diagnoses + + | Diagnosis | + + | Dysmetabolic syndrome X Dysmetabolic Syndrome X | + + | CAD (coronary artery disease) Coronary atherosclerosis of unspecified type of vessel, | | [place] or graft | + + | Sleep [...]
--- OUTSIDE RECORDS SUMMARY | ~2018-08-20 | XMS | Encounter Summary ---
Demographics + + + | Address | [address] | | | [place] [address] | + + + | Home Phone [...] IGNACIO camacho | | | | | [address] | | + + + + + Care Team Providers + +------+ + | Care Bi Lead Name | Role | Phone | [...] [address] | | | | | [address] | [facility], | | | | | Mailcode: L223A | [place] [address] | | | | | Physicians An | [phone] | | | | | [address] [place], | | | | | | [place] [address] | | | | | | [phone] | | | +--------+ + + + [...]
--- OUTSIDE RECORDS SUMMARY | ~2018-08-20 | XMS | Encounter Summary ---
Demographics + + + | Address | [address] [place] [address] [address] | | | [place] [address] | + + + | Home Phone [...] IGNACIO bedolla | | | | | [address] | | + + + + + Care Team Providers + +------+ + | Care Laborer Cement Gun Placing Name | Role | Phone | + [...] + | 03/12/ | Hospital | [facility] [address] | Renato Chow MD | | | 2010 - | Encounter | [address] | [address] | | | | | [facility] | [place], [place] | | | 03/13/ | | [place] [address] | [address] | | | 2010 | | [phone] | [phone] | | | | | | | [...] removal. Feel free to call the [facility] urology clinic as needed for any additional questions . Your Follow-Up Plan Follow-up information has not been specified. Other Discharge Orders and Instructions Please contact Urology clinic ([phone]) during business hours or the Urology resident online education manager ([phone]) after business hours for: 1. Redness or [...] Physician: Renato Chow MD Patient: GERMAINE HEARD [id number] 24H events/Subjective: No events overnight. Pain well [...] 03/13/11 0659 03/13/11699 - 03/14/11 0659 Shift 8031-3776 7170-0660 5705-0042 Daily Total 7682-7173 1552-1644 0081-1366 Daily Total I N T A K E P.O. 520 1080 1600 I.V. 1550 761 808 7645 5 5 Shift Total 1550 1320 1880 4750 5 5 O U T P U T Urine 800 377 479 1678 200 200 Shift Total 800 985 975 1181 200 200 Medication: acetaminophen (aka TYLENOL) tablet [...] [facility] DEPARTMENT OF | [address] | [place] [address] | | | PATHOLOGY | [address] [...] + + | [facility] | [address] | [place] [address] | | | PATHOLOGY | [address] [...] | | | | | Neri Alvarez, [facility] | | | | | | [address] | | | | | | [phone] | | | | | | | | | | | | [email or web address] | | | | | | [...] [facility] | [address] | [place], [place] | | | [facility] | | [address] | | + + + + + [...]
--- OUTSIDE RECORDS SUMMARY | ~2018-08-20 | XMS | Encounter Summary ---
Demographics + + + | Address | [address] | | | [place] [address] | + + + | Home Phone [...] IGNACIO camacho | | | | | [address] | | + + + + + Care Team Providers + +------+ + | Care Bladder Cleaner Name | Role | Phone | [...] 2005 | Registratio | Hermila Muir | [phone] | | | | n | [facility] Mailcode: | | | | | | [address] [place], [place] | | | | | | [address] | | | | | | [phone] | | | +--------+ + + + [...]
--- OUTSIDE RECORDS SUMMARY | ~2018-08-20 | XMS | Encounter Summary ---
Demographics + + + | Address | [address] [place] [address] | | | [place] [address] | + + + | Home Phone [...] [place]NAC[place] camacho | | | | | [address] | | + + + + + Care Team Providers + +------+ + | Care Machine I Engraver Name | Role | Phone | + [...] | Registratio | S Rikki Muir | [address] | | | | n | [facility] Mailcode: | [place], [place] | | | | | [address] [place], [place] | [address] | | | | | [address] | [phone] | | | | | [phone] | | | +--------+ + + + [...] [facility] DEPARTMENT | [address] | [place] [address] | | | PATHOLOGY | [address] | | | + + + + + | [facility] DEPARTMENT | [address] | [place] [address] | | | PATHOLOGY | [address] | | | + + + + + PROTHROMBIN TIME (06/25/2005 9:45 AM PST) + + + + + + | Component | Value | Ref Range | Performed | Pathologist | | | | | At | Signature | + + + + + + | INR | 0.90Comment: | 0.90 - 1.20 INR | [facility] | | | | PT INR | [...] + | [facility] | [facility] | [place] [address] | | | PATHOLOGY | [address] | | | + + + + + | [facility] | [address] [facility] | [place] [address] | | | PATHOLOGY | [address] [...] Performed At | + + + | [id number] Estimated GFR > 60 mL/min/1.73 sq m if non- | [facility] | | [id number] Estimated GFR > 60 mL/min/1.73 sq m [...] | + + + + + | [facility] DEPARTMENT | [address] [place] [address] | [place] [address] | | | PATHOLOGY | [address] | | | + + + + + | [facility] | [address] [facility] | [place] [address] | | | PATHOLOGY | [address] | | | + + + + + documented in this encounter Visit Diagnoses Not on filedocumented in this encounter"
--- OUTSIDE RECORDS SUMMARY | ~2018-08-20 | XMS | Encounter Summary ---
Demographics + + + | Address | [address] | | | [place] [address] | + + + | Home Phone [...] IGNACIO bedolla | | | | | [address] | | + + + + + Care Team Providers + +------+ + | Care Blind Teacher Name | Role | Phone | [...] [address] | | | | | | [place], [place] | | | | | | [address] | | | | | | [phone] | | | +--------+---------+ + + + [...] of surgical weight loss procedure. Scheduled for [facility] on 02/05/06 Last 1 Wt Readings: Date: [...] has been cleared for surgery by her director product management, Dr. Melendez. She states she has completed dietary consultation and psychological evaluation in [facility]. Those records have been requested. Current Problem [...] REFLUX DISEASE) SLEEP APNEA Past Surgical History: [place] CABG, VEIN, FOUR HX APPENDECTOMY HX CHOLECYSTECTOMY [...]
--- OUTSIDE RECORDS SUMMARY | ~2018-08-20 | XMS | Encounter Summary ---
Demographics + + + | Address | [address] [place] [address] | | | [place] [address] | + + + | Home Phone [...] IGNACIO camacho | | | | | [address] | | + + + + + Care Team Providers + +------+ + | Care Photocomposition Keyboard Operator Name | Role | Phone | [...] Muir | | | | | [address] | [facility], | | | | | Mailcode: L223A | [place] [address] | | | | | Physicians An | [phone] | | | | | [address] [place], | | | | | | [place] [address] | | | | | | [phone] | | | +--------+ + + + [...]
--- OUTSIDE RECORDS SUMMARY | ~2018-08-20 | XMS | Encounter Summary ---
Demographics + + + | Address | [address] | | | [place] [address] | + + + | Home Phone [...] IGNACIO camacho | | | | | [address] | | + + + + + Care Team Providers + +------+ + | Care Splicing Machine Operator Name | Role | Phone [...] | | | Mail Code: CH10U | [place], [place] | | | | | [facility] | [address] | | | | | and [facility] | [phone] | | | | | Floor [place], [place] | | | | | | [address] | | | | | | [phone] | | | +--------+ + + + [...] | | + +---------+ + + | [facility] DEPARTMENT OF | | | | | RADIOLOGY | | | | + +---------+ + + documented in this encounter Visit Diagnoses Not on filedocumented in this encounter"
--- OUTSIDE RECORDS SUMMARY | ~2018-08-20 | XMS | Encounter Summary ---
Demographics + + + | Address | [address] [place] [address] [address] | | | [place] [address] | + + + | Home Phone [...] IGNACIO camacho | | | | | [address] | | + + + + + Care Team Providers + +------+ + | Care Clinical Administrative Coordinator Name | Role | Phone | [...] 01/14/ | Office | Preoperative | 1, [facility] Assistant Front Desk Manager [address] | Panniculitis; CAD | | 2007 | Visit | Medicine Clinic at | [facility] [address] | (Coronary Artery | | | | [facility] 4th Floor [address] | [place] [address] | Disease); DM Circ | | | | [address] | | Dis Type II, | | | | Code: [facility] | | Uncontrolled (HCC); | | | | for Health and | | Other Specified | | | | Healing,4th Floor | | Pre-Operative | | | | [place], [place] | | Examination | | | | [address] | | | | | | [phone] | | | +--------+---------+ + + + [...] | + + +--------+ + + | AR COLLECTION VENOUS | Procedures | Routin | [...] + + + + + | [facility] DEPARTMENT OF | [address] [facility] | [place] [address] | | | PATHOLOGY | [address] | | | + + + + + | [facility] DEPARTMENT OF | [address] [facility] | [place] [address] | | | PATHOLOGY | [address] [...] | + + + + + | [facility] | [address] [place] [address] [address] | [place] [address] | | | PATHOLOGY | [address] | | | + + + + + | [facility] | [address] | [place] [address] | | | PATHOLOGY | [address] [...] + + + + + | [facility] DEPARTMENT OF | [address] | [place] [address] | | | PATHOLOGY | [address] | | | + + + + + | [facility] DEPARTMENT OF | [facility] [address] | [place] [address] | | | PATHOLOGY | [address] [...] | + + + + + | [facility] | [address] [facility] | [place] [address] | | | PATHOLOGY | [address] | | | + + + + + | [facility] | [address] [facility] | [place] [address] | | | PATHOLOGY | [address] [...] Performed At | + + + | 932162 Estimated GFR > 60 mL/min/1.73 sq m if non- | [facility] | | Malian 383992 Estimated GFR > 60 mL/min/1.73 sq m if | DEPARTMENT OF | | [place] GFR is estimated using the MDRD equation [...] | + + + + + | [facility] | [address] | [place] [address] | | | PATHOLOGY | [address] | | | + + + + + | [facility] DEPARTMENT OF | [address] | [place] [address] | | | PATHOLOGY | [address] [...] DEPARTMENT OF | [address] | [place] [address] | | | PATHOLOGY | [address] | | | + + + + + | [facility] DEPARTMENT | [address] | [place] [address] | | | PATHOLOGY | [address] [...] view image for the detailed interpretation from [employer] results. | CARDIOLOGY | | | | + + + + + + + + | Performing | Address | City/State/Zipcode | Phone Number | | Organization | | | | + + + + + | [facility] DEPT OF | [address] | [place], [place] | | | CARDIOLOGY | [address] | [address] | | + + + + + | [facility] DEPT OF | [address] | [place], [place] | | | CARDIOLOGY | [address] [facility] | [address] | | + + + + + documented in this encounter Visit Diagnoses + + | Diagnosis | + + | Panniculitis Panniculitis, unspecified site | + + | CAD (coronary artery disease) Coronary atherosclerosis of unspecified type of vessel, | | [place] or graft | + + | Type II or unspecified type diabetes mellitus with peripheral circulatory disorders, | | uncontrolled(250.72) Type II or unspecified type diabetes mellitus with peripheral | | circulatory disorders, uncontrolled | + + | Other specified pre-operative examination | + + documented in this encounter
--- OUTSIDE RECORDS SUMMARY | ~2018-08-20 | XMS | Encounter Summary ---
Demographics + + + | Address | [address] | | | [place] [address] | + + + | Home Phone [...] [place]NAC[place] bedolla | | | | | [address] | | + + + + + Care Team Providers + +------+ + | Care Named Account Executive Name | Role | Phone | [...] | | | obstructing | [facility] | [address] | | | | | calculus at | [address] | [address] | | | | | the right | [facility] | [place], [place] | | | | | [place]. | [address] | [address] | | | | | | [address] | Phone: | | | | | | [place], | [phone] | | | | | | [place] [address] | Fax: | | | | | | Phone: | [phone] | | | | | | [phone] | | | | | | | Fax: | | | | | | | [phone] | | +--------+--------+ + + + + [...] | | | Mail Code: CH10U | [place], [place] | specified | | | | [facility] | [address] | pre-operative | | | | and | [phone] | examination | | | | Floor [place], [place] | | | | | | [address] | | | | | | [phone] | | | +--------+---------+ + + + [...] surgeries scheduled to take place on the [place] at the [facility]: Surgeries scheduled in the [facility] (4 North): registration is located on the 4th floor of [facility] (Day Surgery). Surgeries scheduled in the [facility]: registration is located on the 9th floor. Surgeries scheduled in [facility]: registration is located on the 6th floor. Surgeries scheduled in the [facility]: registration is located i n the [facility] on the first floor. For surgeries scheduled to take place at the [facility]: registration is l [...] If [facility], please check with your provider before [...] female referred by Dr. 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 She has been maintained of Plavx since then but stopped it over a week ago. She has no cardiac symptoms especially since w eight loss from 550 to 190 after gastric bypass in 2005. Pannus removed more recently by Dr. Gia Amin at [facility]. 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[employer] Social History Main Topics Smoking status: Former [...] + + + | Test performed by: [facility] | [facility] | | Outpatient Lab [facility] [address] [place], [place] [address] | DEPARTMENT OF | | | PATHOLOGY | + + + + + + + + | Performing | Address | City/State/Zipcode | Phone Number | | Organization | | | | + + + + + | [facility] DEPARTMENT OF | [address] | [place] [address] | | | PATHOLOGY | [address] [...] + + + | Test performed by: [facility] | [facility] | | Outpatient Lab [facility] [address] [place], [place] [address] | DEPARTMENT OF | | Sent to [facility]. | PATHOLOGY | + + + + + + + + | Performing | Address | City/State/Zipcode | Phone Number | | Organization | | | | + + + + + | [facility] DEPARTMENT OF | [address] | [place] [address] | | | PATHOLOGY | [address] | | | + + + + + 12 LEAD ECG (03/11/2011 4:58 PM PST) + + + + + + | Component | Value | Ref Range | Performed | Pathologist | | | | | At | Signature | + + + + + + | VENTRICULAR | 62 | BPM | [facility] DEPT | | | RATE | | [...] view image for the detailed interpretation from [employer] results. | CARDIOLOGY | + + + + + + + + | Performing | Address | City/State/Zipcode | Phone Number | | Organization | | | | + + + + + | [facility] DEPT OF | [address] [facility] | [place], [place] | | | CARDIOLOGY | [address] | [address] | | + + + + + CULTURE, URINE BACTI (03/11/2011 4:38 PM PST) + + + + + + | Component | Value | Ref Range | Performed | Pathologist | | | | | At | Signature | + + + + + + | SOURCE BODY | Voided Urine | | [facility] | | | SITE | sensitivities | [...] [facility]LB | | | | | | ([facility] [address] [facility]) | | | | | | [place] | | | | | | [facility] | | | | | | [address] | | | | | | [address] | | | | | | [place] | | | | | | , [place] [address] | | | | + + + + + + + + | Specimen | + + | Urine - Voided | + + + + + + + | Performing | Address | City/State/Zipcode | Phone Number | | Organization | | | | + + + + + | [facility] | [address] | [place] [address] | | | LAB-MICRO | | | [...] [facility] | [address] | [place] [address] | | | OF CARE TESTS | | | | + + + + + documented in this encounter Visit Diagnoses + + | Diagnosis | + + | Kidney stone - Primary Calculus of kidney | + + | Other specified pre-operative examination | + + documented in this encounter
--- OUTSIDE RECORDS SUMMARY | ~2018-08-20 | XMS | Encounter Summary ---
Demographics + + + | Address | [address] | | | [place] [address] | + + + | Home Phone [...] [place]NAC[place] camacho | | | | | [address] | | + + + + + Care Team Providers + +------+ + | Care Inside Polisher Name | Role | Phone | [...] as of this encounter Discharge Summaries Interface, Load Dispatcher In - 02/20/2006 2:34 AM [facility] [id number] [address] R[address] [id number] Admission Date: 02/05/2006 Discharge Date: 02/09/2006 Staff [...] of discharge, she was seen by our case monitor who assisted her with a voucher for a motel. She will stay in the local area for the next 2 days before returning home to [place]. The patient was seen by Nutrition and [...] Sana Timmons M.D. Chey Escobar M.D. / [id number] / [id number] / [id number] / [id number] E: 02/11/2006 cmw cc: Tuan Chan M.D. FAX: [phone] Reviewed or Edited By Sana Timmons on 02-19-2006 Electronically signed by Herberth Brambila 02-19-2006 11:24:08 AM documented i n this encounter Plan of Treatment Not on filedocumented as of this encounter Visit Diagnoses Not on filedocumented in this encounter"
--- OUTSIDE RECORDS SUMMARY | ~2018-08-20 | XMS | Encounter Summary ---
Demographics + + + | Address | [address] | | | [place] [address] | + + + | Home Phone [...] [place]NAC[place] camacho | | | | | [address] | | + + + + + Care Team Providers + +------+ + | Care Earthmoving Labourer Name | Role | Phone | + [...] | | | | | [facility] | | | | | | Health and Healing, | | | | | | 6th floor [place], | | | | | | [place] [address] | | | | | | [phone] | | | +--------+---------+ + + + [...]
--- OUTSIDE RECORDS SUMMARY | ~2018-08-20 | XMS | Encounter Summary ---
Demographics + + + | Address | [address] [place] [address] | | | [place] [address] | + + + | Home Phone [...] [place]NAC[place] camacho | | | | | [address] | | + + + + + Care Team Providers + +------+ + | Care Last Trimmer Name | Role | Phone | [...] (Patients | | | | Surgery at [facility] [address] | | has some | | | | [address] Mail | | concerns, pain | | | | Code: [facility] | | issues) | | | | for Health and | | | | | | Healing, 5th Floor | | | | | | [place], [place] | | | | | | [address] | | | | | | [phone] | | | +--------+ + + + [...]
--- OUTSIDE RECORDS SUMMARY | ~2018-08-20 | XMS | Encounter Summary ---
Demographics + + + | Address | [address] | | | [place] [address] | + + + | Home Phone [...] [place] camacho | | | | | [address] | | + + + + + Care Team Providers + +------+ + | Care Cable Maintainer Name | Role | Phone | [...] Procedure Note | + + | Interface, Quill Winder In - 02/05/2006 12:00 AM PST | | [id number] | | [id number] ANTONIETTAMACK GERMAINE [id number] | | | | Date: 02/05/2006 | | | | Attending Surgeon: Papi Johnson M.D. | | | | Clinical Care Leader(s): Darrel Dunn M.D. | | | [...] | | DS / HS | | [id number] / [id number] / [id number] / [id number] | | | | | | | | | | | | Reviewed or Edited By Darrel Dunn MD on 05-29-2006 | | Electronically signed by Papi Johnson 05-29-2006 11:17:53 AM | | | | | + + + + | Transcriptions | + + | Interface, Quill Winder In - 02/20/2006 2:34 AM PST | | [id number] | | [id number] [address] HERRON [id number] | | | | Date: 02/05/2006 | | | | Attending Surgeon: Herberth Ayala M.D. | | | | Clinical Care Leader(s): Darrel Dunn M.D. | | | [...] | | | RWO / | | [id number] / [id number] / [id number] / [id number] | | | | | | | | | | | | Electronically signed by Herberth Brambila 02-19-2006 11:24:19 AM | + + documented in this encounter Visit Diagnoses Not on filedocumented in this encounter"
--- OUTSIDE RECORDS SUMMARY | ~2018-08-20 | XMS | Encounter Summary ---
Demographics + + + | Address | [address] | | | [place] [address] | + + + | Home Phone [...] IGNAC[place] camacho | | | | | [address] | | + + + + + Care Team Providers + +------+ + | Care Return Agent Name | Role | Phone | [...] | | | Mail Code: CH10U | [place], [place] | | | | | [facility] | [address] | | | | | and | [phone] | | | | | Floor [place], [place] | | | | | | [address] | | | | | | [phone] | | | +--------+---------+ + + + [...] 1 Years of Education: N/A Occupational History [employer] Social History Main Topics Tobacco Use: Quit [...] [facility] | [address] | [place], [place] | | | [place] [facility]ARE | [address] | [address] | | | TESTS | | | | + + + + + | [facility]-POINT OF CARE | [address] | [place], [place] | | | TESTS | [facility] | [address] | | + + + + + documented in this encounter Visit Diagnoses + + | Diagnosis | + + | Urolithiasis - Primary Urinary calculus, unspecified | + + documented in this encounter"
--- OUTSIDE RECORDS SUMMARY | ~2018-08-20 | XMS | Encounter Summary ---
Demographics + + + | Address | [address] | | | [place] [address] | + + + | Home Phone [...] [place] cam[place] | | | | | [address] | | + + + + + Care Team Providers + +------+ + | Care Control Cabinet Assembler Name | Role | Phone | + +------+ + | Tuan Chan MD | PCP | | + +------+ + Encounter Details +--------+ + + + + | Date | Type | Department | Care Team | Description | +--------+ + + + + | 11/22/ | Document-Sc | UNKNOWN DEPARTMENT | Unknown . | | | 2005 | anned | [address] [facility] | | | | | | [facility] | | | | | | [place], [place] | | | | | | [address] | | | +--------+ + + + [...]
--- OUTSIDE RECORDS SUMMARY | ~2018-08-20 | XMS | Encounter Summary ---
Demographics + + + | Address | [address] | | | [place] [address] | + + + | Home Phone | | + + + | Preferred Language | Unknown | + + + | Marital Status | | + + + | Mormon Affiliation | PRO | + + + | Race | White | + + + | Ethnic Group | Not or | + + + Author + + + | Author | [facility] | + + + | Organization | [facility] | + + + | Address | Unknown | + + + | Phone | Unavailable | + + + Support + + + + + | Name | Relationship | Address | Phone | + + + + + | Hector Mack | ECON | [address] | | | | | [place] | | | | | [address] | | + + + + + Care Team Providers + +------+ + | Care Sewing Pattern Layout Technician Name | Role | Phone | [...] | | | | [address] | [address] [place], | | | | | Mailcode: L223A | [place] [address] | | | | | [facility] | [phone] | | | | | [address] [place], | | | | | | [place] [address] | | | | | | [phone] | | | +--------+---------+ + + + [...] 11:32 AM PDT PC: [facility]: Mrs. Geramine Heard is a pleasant, obese, 59-year-old female [...] cardiac problems. She smoked, has about a 41-syks-cnot smoking history but has not smoked in [...]
--- OUTSIDE RECORDS SUMMARY | ~2018-08-20 | XMS | Encounter Summary ---
Demographics + + + | Address | [address] | | | [place] [address] | + + + | Home Phone [...] [place] | | | | | [address] | | + + + + + Care Team Providers + +------+ + | Care Digital Content Producer Name | Role | Phone | + [...] | | | | | | [facility] | | | | | | Health and Healing, | | | | | | 6th floor [place], | | | | | | [place] [address] | | | | | | [phone] | | | +--------+---------+ + + + [...] next will be in [address] [facility] time. documented in this encounter Plan of Treatment Not on filedocumented as of this encounter Visit Diagnoses + + | Diagnosis | + + | Achalasia Achalasia and cardiospasm | + + | Obesity Obesity, unspecified | + + documented in this encounter
--- OUTSIDE RECORDS SUMMARY | ~2018-08-20 | XMS | Encounter Summary ---
Demographics + + + | Address | [address] | | | [place] [address] | + + + | Home Phone [...] [place] bedolla | | | | | [address] | | + + + + + Care Team Providers + +------+ + | Care Track Laminating Machine Tender Name | Role | Phone [...] + + | 03/12/ | Hospital | [facility] [address] | Renato Chow MD | | | 2010 - | Encounter | [address] | [address] | | | | | [facility] | [place], [place] | | | 03/13/ | | [place] [address] | [address] | | | 2010 | | [phone] | [phone] | | | | | | | [...] re removal. Feel free to call the [facility] urology clinic as needed for any additional questions . Your Follow-Up Plan Follow-up information has not been specified. Other Discharge Orders and Instructions Please contact Urology clinic ([phone]) during business hours or the Urology resident yardage control operator ([phone]) after business hours for: 1. Redness or [...] Physician: Renato Chow MD Patient: GERMAINE HEARD [id number] 24H events/Subjective: No events overnight. Pain well [...] 03/13/11 0659 03/13/11699 - 03/14/11 0659 Shift 0548-5575 8392-4823 5907-1046 Daily Total 2312-4620 6247-6232 7438-2887 Daily Total I N T A K E P.O. 520 1080 1600 I.V. 1550 308 622 6518 5 5 Shift Total 1550 1320 1880 4750 5 5 O U T P U T Urine 800 929 180 0879 200 200 Shift Total 800 268 972 9212 200 200 Medication: acetaminophen (aka TYLENOL) tablet [...] DEPARTMENT OF | [address] | [place] [address] | | | PATHOLOGY | [address] [...] | + + + + + | [facility] | [address] | [place] [address] | | | PATHOLOGY | [address] [...] | | | | | Neri Alvarez, [facility] [place] | | | | | | [address] | | | | | | [phone] | | | | | | | | | | | | [email or web address], [place] | | | | | | [...] [facility] | [address] | [place], [place] | | | UN[facility] | | [address] | | + + + + + [...]
--- OUTSIDE RECORDS SUMMARY | ~2018-08-20 | XMS | Encounter Summary ---
Demographics + + + | Address | [address] | | | [place] [address] | + + + | Home Phone [...] [place] camacho | | | | | [address] | | + + + + + Care Team Providers + +------+ + | Care Ice Delivery Driver Name | Role | Phone [...] Dx); | | | | Surgery at [facility] [address] | | Intertrigo; CAD | | | | [address] | | (Coronary Artery | | | | Code: [facility] Center | | Disease); DM Circ | | | | for Health and | | Dis Type II, | | | | Healing, 5th Floor | | Uncontrolled (HCC) | | | | [place], [place] | | | | | | [address] | | | | | | [phone] | | | +--------+---------+ + + + [...] surgeries scheduled to take place on the ethridge at the [facility]: Surgeries scheduled in the [facility] (4 North): registration is located on the 4th floor of [facility] (Day Surgery). Surgeries scheduled in the [facility]: registration is located on the 9th floor. Surgeries scheduled in [facility]: registration is located on the 6th floor. Surgeries scheduled in the [facility]: registration is located i n the [facility] on the first floor. For surgeries scheduled to take place at the [facility]: registration is l ocated on the 4th [...] Accession | | | | | | #:[id number] | | | | | | and [...] | | | | | | dedicated [employer] System | | | | | | with R2 CAD. Performed | | | | | | at [facility] | | | | | | Science | | | | | | [place].ASSESSMENT: | | | | | | Negative [...] | + + + + + | [facility] | [facility] | [place] [address] | | | PATHOLOGY | [address] | | | + + + + + | [place] DEPARTMENT OF | [facility] | [place] [address] | | | PATHOLOGY | [address] [...] + + | [facility] DEPARTMENT OF | [address] | [place] [address] | | | PATHOLOGY | [address] | | | + + + + + | [facility] | [address] | [place] [address] | | | PATHOLOGY | [address] [...] + | [facility] | [address] | [place] [address] | | | PATHOLOGY | [address] | | | + + + + + | [facility] | [address] | [place] [address] | | | PATHOLOGY | [address] [...] Performed At | + + + | 137160 Estimated GFR > 60 mL/min/1.73 sq m if non- | [facility] | | [place] [id number] Estimated GFR > 60 mL/min/1.73 sq m if | DEPARTMENT OF | | [place] GFR is estimated using the MDRD equation [...] + + | Performing | Address | City/[facility] | Phone Number | | Organization | | | | + + + + + | [facility] | [address] [place] [address] | [place] [address] | | | PATHOLOGY | [address] | | | + + + + + | [facility] | [address] [place] [address] | [place] [address] | | | PATHOLOGY | [address] [...] DEPARTMENT OF | [address] | [place] [address] | | | PATHOLOGY | [address] | | | + + + + + | [facility] | [address] | [place] [address] | | | PATHOLOGY | [address] | | | + + + + + documented in this encounter Visit Diagnoses + + | Diagnosis | + + | Panniculitis - Primary Panniculitis, unspecified site | + + | Intertrigo Other specified erythematous condition | + + | CAD (coronary artery disease) Coronary atherosclerosis of unspecified type of vessel, | | ramona or graft | + + | Type II or unspecified type diabetes mellitus with peripheral circulatory disorders, | | uncontrolled(250.72) Type II or unspecified type diabetes mellitus with peripheral | | circulatory disorders, uncontrolled | + + documented in this encounter
--- OUTSIDE RECORDS SUMMARY | ~2018-08-20 | XMS | Encounter Summary ---
Demographics + + + | Address | [address] [place] [address] | | | [place] [address] | + + + | Home Phone [...] [place] camacho | | | | | [address] | | + + + + + Care Team Providers + +------+ + | Care Refinery Operator Helper Name | Role | Phone [...] | 2008 | Visit | Medical at [facility] 16th | FABIO Figueredo [address] | (Primary Dx); | | | | Floor [address] | [address] [place], | Encounter for | | | | Ave Mail Code: | [place] [address] | Long-Term (Current) | | | | [facility] for | [phone] | Use of Other | | | | Health and Healing, | | Medications | | | | 16th floor | | | | | | [place], [place] | | | | | | [address] | | | | | | [phone] | | | +--------+---------+ + + + [...] in 06/06 --s/p CABG in 2000 in [facility] --s/p cholecystectomy 35 years ago [...] month Julia Buckley PA-C Department of Dermatology [facility] documented in this encounter Plan of Treatment Not on filedocumented as of this encounter Visit Diagnoses + + | Diagnosis | + + | 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
--- OUTSIDE RECORDS SUMMARY | ~2018-08-20 | XMS | Encounter Summary ---
Demographics + + + | Address | [address] [place] [address] | | | [place] [address] | + + + | Home Phone [...] [place] | | | | | [address] | | + + + + + Care Team Providers + +------+ + | Care Dietetics Professor Name | Role | Phone | [...] Hernia of | [address] Crow | [address] | | | | | unspecified | [address] | [address] | | | | | site of | [address] | [facility] | | | | | abdominal | [place], [place] | Road | | | | | cavity | [address] | Mailcode: | | | | | without | | [address] [facility] | | | | | mention of | | Hospital | | | | | obstruction | | [place], [place] | | | | | or gangrene | | [address] | | | | | Procedures | | Phone: | | | | | CT ABDOMEN | | [phone] | | | | | WWO CONTRAST | | Fax: | | | | | LTD | | [phone] | +--------+--------+ + + + + Encounter Details +--------+ + + + + | Date | Type | Department | Care Team | Description | +--------+ + + + + | 08/05/ | Hospital | Radiology/Imaging | | | | 2008 | Encounter | Lab at [facility] [address] | | | | | | [address] | | | | | | Mailcode: CH3G | | | | | | [place] for [facility] | | | | | | and Healing, 3rd | | | | | | Floor [place], [place] | | | | | | [address] | | | | | | [phone] | | | +--------+ + + + [...]
--- OUTSIDE RECORDS SUMMARY | ~2018-08-20 | XMS | Encounter Summary ---
Demographics + + + | Address | [address] | | | [place] [address] | + + + | Home Phone | | + + + | Preferred Language | Unknown | + + + | Marital Status | | + + + | Bahai Affiliation | PRO | + + + | Race | White | + + + | Ethnic Group | Not or | + + + Author + + + | Author | [facility] | + + + | Organization | [facility] | + + + | Address | Unknown | + + + | Phone | Unavailable | + + + Support + + + + + | Name | Relationship | Address | Phone | + + + + + | Hector Mack | ECON | [address] | | | | | [place] | | | | | [address] | | + + + + + Care Team Providers + +------+ + | Care Twisting Operator Name | Role | Phone | [...] | Disease); | | | | [address] | | Dyslipidemia; | | | | Mailcode: SIB479 | | Dysmetabolic | | | | [facility] | | Syndrome X; Sleep | | | | [address] [place], | | Apnea; Gout; DM Circ | | | | [place] [address] | | Dis Type II, | | | | [phone] | | Uncontrolled (HCC) | +--------+ + [...] + | [facility] | [address] [facility] | [place] [address] | | | PATHOLOGY | [address] | | | + + + + + | [facility] | [address] [facility] | [place] [address] | | | PATHOLOGY | [address] | | | + + + + + documented in this encounter Visit Diagnoses + + | Diagnosis | + + | CAD (coronary artery disease) Coronary atherosclerosis of unspecified type of vessel, | | chickaloon or graft | + + | Dyslipidemia [...]
--- OUTSIDE RECORDS SUMMARY | ~2018-08-20 | XMS | Encounter Summary ---
Demographics + + + | Address | [address] | | | [place] [address] | + + + | Home Phone [...] [place] | | | | | [address] | | + + + + + Care Team Providers + +------+ + | Care Sock And Stocking Ironer Name | Role | Phone | [...] | | | | abdominal | [place], [place] | Mail Code: | | | | | cavity | [address] | [facility] Center | | | | | without | | for Health | | | | | mention of | | and Healing, | | | | | obstruction | | 5th Floor | | | | | or gangrene | | [place], [place] | | | | | | | [address] | | | | | Panniculitis | | Phone: | | | | | Procedures | | [phone] | | | | | REQUEST TO | | | | | | | SURGERY | | | | | | | BURR FILER | | | +--------+--------+ + + + [...] Hernia of | Aysha Crow, | [facility] [address] | | | | | unspecified | [address] | [address] | | | | | site of | [address] | [facility] | | | | | abdominal | [place], [place] | Road | | | | | cavity | [address] | Mailcode: | | | | | without | | [address] [facility] | | | | | mention of | | Hospital | | | | | obstruction | | [place], [place] | | | | | or gangrene | | [address] | | | | | Procedures | | Phone: | | | | | CT ABDOMEN | | [phone] | | | | | WWO CONTRAST | | Fax: | | | | | LTD | | [phone] | +--------+--------+ + + + + Reason [...] Panniculitis | | | | Surgery at [facility] [address] | | | | | | [address] Mail | | | | | | Code: [address] | | | | | | for Health and | | | | | | Healing, 5th Floor | | | | | | [place], [place] | | | | | | [address] | | | | | | [phone] | | | +--------+---------+ + + + [...] | | + +---------+ + + | [facility] DEPARTMENT OF | | | | | [...]
--- OUTSIDE RECORDS SUMMARY | ~2018-08-20 | XMS | Encounter Summary ---
Demographics + + + | Address | [address] | | | [place] [address] | + + + | Home Phone [...] [place] | | | | | [address] | | + + + + + Care Team Providers + +------+ + | Care Innersole Maker Name | Role | Phone | [...]
--- OUTSIDE RECORDS SUMMARY | ~2018-08-20 | XMS | Encounter Summary ---
Demographics + + + | Address | [address] | | | [place] [address] [...] [place] cam[place] | | | | | [address] | | + + + + + Care Team Providers + +------+ + | Care Fabricator Industrial Furnace Name | Role | Phone | + [...] Colon | | | | | | [facility] | | | | | | [place] | | | | | | [address] | | | +--------+ + + + [...]
--- OUTSIDE RECORDS SUMMARY | ~2018-08-20 | XMS | Encounter Summary ---
Demographics + + + | Address | [address] [place] [address] | | | [place] [address] | + + + | Home Phone [...] [place] cam[place] | | | | | [address] | | + + + + + Care Team Providers + +------+ + | Care Solvent Recoverer Name | Role | Phone | + [...] | Stay [address] | [place], [place] | | | | | [address] | [address] | | | | | Mailcode: UHN65 | [phone] | | | | | Ayah Nolan | | | | | | [address] [place], [place] | | | | | | [address] | | | | | | [phone] | | | +--------+ + + + [...]
--- OUTSIDE RECORDS SUMMARY | ~2018-08-20 | XMS | Encounter Summary ---
Demographics + + + | Address | [address] | | | [place] [address] | + + + | Home Phone [...] [place] cam[place] | | | | | [address] | | + + + + + Care Team Providers + +------+ + | Care In School Suspension Coordinator Name | Role | Phone | [...] | | | Mail Code: CH10U | [place], [place] | | | | | [facility] | [address] | | | | | and [facility], | [phone] | | | | | Floor [place], [place] | | | | | | [address] | | | | | | [phone] | | | +--------+ + + + [...] | [facility] | [address] | [place] [address] | | | PATHOLOGY | [address] | | | + + + + + documented in this encounter Visit Diagnoses Not on filedocumented in this encounter"
--- OUTSIDE RECORDS SUMMARY | ~2018-08-20 | XMS | Encounter Summary ---
Demographics + + + | Address | [address] [place] [address] | | | [place] [address] | + + + | Home Phone [...] [place] camacho | | | | | [address] | | + + + + + Care Team Providers + +------+ + | Care Lead Coater Name | Role | Phone | + [...] | Registratio | [address] | [address] | | | | n | [facility] Mailcode: | [place], [place] | | | | | [address] [place], [place] | [address] | | | | | [address] | [phone] | | | | | [phone] | | | +--------+ + + + [...]
--- OUTSIDE RECORDS SUMMARY | ~2018-08-20 | XMS | Encounter Summary ---
Demographics + + + | Address | [address] | | | [place] [address] | + + + | Home Phone [...] [place] | | | | | [address] | | + + + + + Care Team Providers + +------+ + | Care Salvage Engineer Name | Role | Phone | [...] 09/07/ | Office | Preoperative | 1, [facility]pper [address] | CAD (Coronary Artery | | 2008 | Visit | Medicine Clinic at | [address] | Disease); Gout; DM | | | | [facility] 4th Floor [address] | [place] [address] | Circ Dis Type II, | | | | [address] Mail | | Uncontrolled (HCC); | | | | Code: [facility] | | Obesity; Achalasia; | | | | for Health and | | Panniculitis; | | | | Healing,4th Floor | | Bruise; Other | | | | [place], [place] | | Specified | | | | [address] | | Pre-Operative | | | | [phone] | | Examination | +--------+---------+ + + [...] | + + +--------+ + + | VT COLLECTION VENOUS | Procedures | Routin | [...] | | | | | ([facility]) Obesity | | | | | | [...] + | [facility] | [address] | [place] [address] | | | PATHOLOGY | [address] | | | + + + + + | [facility] | [address] [place] [address] | [place] [address] | | | PATHOLOGY | [address] [...] | [facility] | [address] | [place] [address] | | | PATHOLOGY | [address] | | | + + + + + | [facility] | [address] | [place] [address] | | | PATHOLOGY | [address] | | | + + + + + INR (09/07/2008 3:43 PM PDT) + + + + + + | Component | Value | Ref Range | Performed | Pathologist | | | | | At | Signature | + + + + + + | INR | 1.01Comment: | 0.90 - 1.20 INR | [facility] | | | | INR | | [...] | + + + + + | [facility] DEPARTMENT OF | [address] | [place] [address] | | | PATHOLOGY | [address] | | | + + + + + | [facility] DEPARTMENT OF | [address] | [place] [address] | | | PATHOLOGY | [address] [...] (H) | 60 - 99 mg/dL | [facility] | | | PLASMA | [...] Performed At | + + + | [id number] Estimated GFR > 60 mL/min/1.73 sq m if non- | [facility] | | [place] [id number] Estimated GFR > 60 mL/min/1.73 sq m if | [facility] | | [place] GFR is estimated using the MDRD equation [...] | + + + + + | [facility] DEPARTMENT | [address] | [place] [address] | | | PATHOLOGY | [address] | | | + + + + + | [facility] DEPARTMENT OF | [address] | [place] [address] | | | PATHOLOGY | [address] | | | + + + + + 12 LEAD ECG (09/07/2008 3:38 PM PDT) + + + + + + | Component | Value | Ref Range | Performed | Pathologist | | | | | At | Signature | + + + + + + | VENTRICULAR | 54 | BPM | [facility] DEPT | | | RATE [...] | | | | | SHAKIRA GARCIA ([id number]) | | | | | | on [...] view image for the detailed interpretation from MiName results. | CARDIOLOGY | | | | + + + + + + + + | Performing | Address | City/State/Zipcode | Phone Number | | Organization | | | | + + + + + | [facility] DEPT OF | [address] | [place], [place] | | | CARDIOLOGY | [address] | [address] | | + + + + + | [facility] DEPT OF | [address] | [place], [place] | | | CARDIOLOGY | [address] | [address] | | + + + + + documented in this encounter Visit Diagnoses + + | Diagnosis | + + | CAD (coronary artery disease) Coronary atherosclerosis of unspecified type of vessel, | | pit river or graft | + + | [...]
--- OUTSIDE RECORDS SUMMARY | ~2018-08-20 | XMS | Encounter Summary ---
Demographics + + + | Address | [address] [place] [address] | | | [place] [address] | + + + | Home Phone [...] [place] | | | | | [address] | | + + + + + Care Team Providers + +------+ + | Care Spinning Machine Tender Name | Role | Phone [...] [address] | | | | | | [place], [place] | | | | | | [address] | | | | | | [phone] | | | +--------+------+ + + + [...] + + documented in this encounter Results [facility] - BASIC METABOLIC SET (03/11/2011 5:13 [...] + + + | Test performed by: [facility] | [facility] | | Outpatient Lab CH[address] [place], [place] [address] | DEPARTMENT OF | | | PATHOLOGY | + + + + + + + + | Performing | Address | City/State/Zipcode | Phone Number | | Organization | | | | + + + + + | [facility] | [address] | [place] [address] | | | PATHOLOGY | [address] [...] + + + | Test performed by: [facility] | [place] | | Outpatient Lab [facility] [address] [place], [place] [address] | DEPARTMENT OF | | Sent to Core Lab. | PATHOLOGY | + + + + + + + + | Performing | Address | City/State/Zipcode | Phone Number | | Organization | | | | + + + + + | [facility] | [address] | [place] [address] | | | PATHOLOGY | [address] | | | + + + + + documented in this encounter Visit Diagnoses + + | Diagnosis | + + | Kidney stone Calculus of kidney | + + documented in this encounter"
--- OUTSIDE RECORDS SUMMARY | ~2018-08-20 | XMS | Encounter Summary ---
Demographics + + + | Address | [address] | | | [place] [address] | + + + | Home Phone [...] + + + | Author | [facility] | + + + | Organization | [facility] | + + + | Address | Unknown | + + + | Phone | Unavailable | + + + Support + + + + + | Name | Relationship | Address | Phone | + + + + + | Hector aMck | ECON | [address] | | | | | [place] | | | | | [address] | | + + + + + Care Team Providers + +------+ + | Care Enterprise Application Analyst Name | Role | Phone | [...] | | [facility] | | | | | | Health and Healing, | | | | | | 6th floor [place], | | | | | | [place] [address] | | | | | | [phone] | | | +--------+ + + + [...] Performed At | + + + | [id number] Estimated GFR = 60 mL/min/1.73 sq m if non- | [facility] | | [id number] Estimated GFR > 60 mL/min/1.73 sq m [...] [facility] | [address] | [place] [address] | | | PATHOLOGY | [address] | | | + + + + + | [facility] DEPARTMENT OF | [address] | [place] [address] | | | PATHOLOGY | [address] [...] DEPARTMENT OF | [address] | [place] [address] | | | PATHOLOGY | [address] | | | + + + + + | [facility] | [address] | [place], [place] [address] | | | PATHOLOGY | [address] | | | + + + + + documented in this encounter Visit Diagnoses + + | Diagnosis | + + | Obesity - Primary Obesity, unspecified | + + documented in this encounter"
--- OUTSIDE RECORDS SUMMARY | ~2018-08-20 | XMS | Encounter Summary ---
Demographics + + + | Address | [address] | | | [place] [address] | + + + | Home Phone [...] [place]NAC[place] camacho | | | | | [address] | | + + + + + Care Team Providers + +------+ + | Care Relay Record Clerk Name | Role | Phone | [...] | | | | CONSULT TO | [place], [place] | Mail Code: | | | | | [place] EXC | [address] | [facility] | | | | | SKIN ABD MI | | for Health | | | | | REDUCTION | | and Healing, | | | | | OF LARGE | | 5th Floor | | | | | BREAST | | [place], [place] | | | | | Procedure to | | [address] | | | | | be | | Phone: | | | | | performed: | | [phone] | | | | | breast | [...] | | | | | | | ([address]) and | | | | | | | Reduction of | | | | | | | large | | | | | | | breast | | | | | | | ([id number]) | | | +--------+--------+ + + + [...] | Surgery at [facility] [address] | [facility] [place] | | | | | [address] | [address] | | | | | Code: [facility] Center | [phone] | | | | | for Health and | | | | | | Healing, 5th Floor | | | | | | [place], [place] | | | | | | [address] | | | | | | [phone] | | | +--------+---------+ + + + [...] 18 years ago Occupation: unemployed, lives in [place] Family History Problem Relation Heart Mother Diabetes [...] per side. Plan: --Patient will followup with emotional support teacher, who will re-evaluate her rash prior to proceedi ng with breast surgery. Requested that derm forward their note to us. --Our outpatient surgery rn will provide the patient with a key [...]
--- OUTSIDE RECORDS SUMMARY | ~2018-08-20 | XMS | Encounter Summary ---
Demographics + + + | Address | [address] | | | [place] [address] | + + + | Home Phone [...] [place]NAC[place] camacho | | | | | [address] | | + + + + + Care Team Providers + +------+ + | Care Burn Center Nurse Name | Role | Phone | [...] | | | | | | | [facility] | | | | | | | [place], | | | | | | | [place] [address] | | | | | | | Phone: | | | | | | | [phone] | | | | | | | Fax: | | | | | | | [phone] | +--------+--------+ + + + + Encounter Details +--------+---------+ + + + | Date | Type | Department | Care Team | Description | +--------+---------+ + + + | 05/09/ | Office | Plastic and | Resident, Pls | Panniculitis | | 2008 | Visit | Reconstructive | [address] | (Primary Dx) | | | | Surgery at [facility] [address] | [place] [address] | | | | | [address] Mail | | | | | | Code: [facility] [place] | | | | | | [facility] Health and | | | | | | [facility] - west Floor | | | | | | [place], [place] | | | | | | [address] | | | | | | [phone] | | | +--------+---------+ + + + [...] 1 Years of Education: N/A 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
--- OUTSIDE RECORDS SUMMARY | ~2018-08-20 | XMS | Encounter Summary ---
Demographics + + + | Address | [address] | | | [place] [address] | + + + | Home Phone [...] IGNAC[place] camacho | | | | | [address] | | + + + + + Care Team Providers + +------+ + | Care Community Services Officer Name | Role | Phone | [...] Colon | | | | | | [facility] | | | | | | [place] | | | | | | [address] | | | +--------+ + + + [...]
--- OUTSIDE RECORDS SUMMARY | ~2018-08-20 | XMS | Encounter Summary ---
Demographics + + + | Address | [address] | | | [place] [address] | + + + | Home Phone [...] [place]NAC[place] camacho | | | | | [address] | | + + + + + Care Team Providers + +------+ + | Care Director Of Consumer Affairs Name | Role | Phone | [...] 2005 | Activity | Hermila Muir | [address] | | | | | [facility] Mailcode: | [place], [place] | | | | | [address] [place], [place] | [address] | | | | | [address] | [phone] | | | | | [phone] | | | +--------+ + + + [...]
--- OUTSIDE RECORDS SUMMARY | ~2018-08-20 | XMS | Encounter Summary ---
Demographics + + + | Address | [address] | | | [place] [address] | + + + | Home Phone [...] [place]NAC[place] camacho | | | | | [address] | | + + + + + Care Team Providers + +------+ + | Care Surveillance Monitor Name | Role | Phone | [...] Muir | | | | n | [facility] Mailcode: | Mary [place], | | | | | [address] [place], [place] | [place] [address] | | | | | [address] | [phone] | | | | | [phone] | | | +--------+ + + + [...]
--- OUTSIDE RECORDS SUMMARY | ~2018-08-20 | XMS | Encounter Summary ---
Demographics + + + | Address | [address] | | | [place] [address] | + + + | Home Phone [...] [place] camacho | | | | | [address] | | + + + + + Care Team Providers + +------+ + | Care Hospital Medical Assistant Name | Role | Phone | + +------+ + | Tuan Chan MD | PCP | | + +------+ + Encounter Details +--------+ + + + + | Date | Type | Department | Care Team | Description | +--------+ + + + + | 02/06/ | Respiratory | | Other, Faculty | | | 2005 | Therapy | | [phone] | | +--------+ + + + + [...] | | | | | Ap Butler, WET WASH ASSEMBLER | | | | + + + [...] SPECIAL | [address] | [place], [place] | | | DIAGNOSTICS - | [address] | [address] | | | PULMONARY FUNCTION | | [...] AMY DOWNS | [address] | [place], [place] | | | DIAGNOSTICS - | [address] | [address] | | | PULMONARY FUNCTION | | [...] AMY DOWNS | [address] | [place], [place] | | | DIAGNOSTICS - | [address] | [address] | | | PULMONARY FUNCTION | | [...] AMY SPECIAL | [address] | [place], [place] | | | DIAGNOSTICS - | [address] | [address] | | | PULMONARY FUNCTION | | [...] | | | | | Noe Alas, WET WASH ASSEMBLER | | | | + + + [...] AMY SPECIAL | [address] | [place], [place] | | | DIAGNOSTICS - | [address] | [address] | | | PULMONARY FUNCTION | | [...] AMY SPECIAL | [address] | [place], [place] | | | DIAGNOSTICS - | [address] | [address] | | | PULMONARY FUNCTION | | [...] | | | Y | Jeff Watts WET WASH ASSEMBLER | | | | + + + [...] AMY SPECIAL | [address] | [place], [place] | | | DIAGNOSTICS - | [address] | [address] | | | PULMONARY FUNCTION | | [...] | | | | | | Medalia, WET WASH ASSEMBLER | | | | + + + [...] [facility] SPECIAL | [address] | [place], [place] | | | DIAGNOSTICS - | [address] | [address] | | | PULMONARY FUNCTION | | [...] AMY SPECIAL | [address] | [place], [place] | | | DIAGNOSTICS - | [address] | [address] | | | PULMONARY FUNCTION | | [...] AMY SPECIAL | [address] | [place], [place] | | | DIAGNOSTICS - | [address] | [address] | | | PULMONARY FUNCTION | | [...] AMY DOWNS | [address] | [place], [place] | | | DIAGNOSTICS - | [address] | [address] | | | PULMONARY FUNCTION | | [...] 10. | | | | | | CONTINUOUS IMPROVEMENT MANAGER IN USE: PATIENT SELF | | [...] NONE | | | | | | [id number] HOURS . . | | | | [...] [facility] SPECIAL | [address] | [place], [place] | | | DIAGNOSTICS - | [address] | [address] | | | PULMONARY FUNCTION | | [...] AMY SPECIAL | [address] | [place], [place] | | | DIAGNOSTICS - | [address] | [address] | | | PULMONARY FUNCTION | | | | + + + + + documented in this encounter Visit Diagnoses Not on filedocumented in this encounter"
--- OUTSIDE RECORDS SUMMARY | ~2018-08-20 | XMS | Encounter Summary ---
Demographics + + + | Address | [address] | | | [place] [address] | + + + | Home Phone [...] [place] camacho | | | | | [address] | | + + + + + Care Team Providers + +------+ + | Care Tobacco Classer Name | Role | Phone | + [...] | | | | | | | [facility] | | | | | | | [place], | | | | | | | [place] [address] | | | | | | | Phone: | | | | | | | [phone] | | | | | | | Fax: | | | | | | | [phone] | +--------+--------+ + + + + Encounter Details +--------+---------+ + + + | Date | Type | Department | Care Team | Description | +--------+---------+ + + + | 05/09/ | Office | Preoperative | Steven, | Preop Examination | | 2008 | Visit | Medicine Clinic at | [address] | (Primary Dx); | | | | [facility] 4th Floor [address] | | Long-Term (Current) | | | | [address] | | Use of | | | | Code: [facility] Center | | Anticoagulants | | | | for Health and | | | | | | [facility],4th Floor | | | | | | [place], [place] | | | | | | [address] | | | | | | [phone] | | | +--------+---------+ + + + [...] + + + + | [facility] DEPARTMENT OF | [address] | [place] [address] | | | PATHOLOGY | [address] | | | + + + + + | [facility] DEPARTMENT OF | [facility] | [place] [address] | | | PATHOLOGY | [address] [...] + + + + | [facility] DEPARTMENT OF | [address] | [place] [address] | | | PATHOLOGY | [address] | | | + + + + + | [facility] DEPARTMENT OF | [address] | [place] [address] | | | PATHOLOGY | [address] [...] Performed At | + + + | [id number] Estimated GFR > 60 mL/min/1.73 sq m if non- | [facility] | | Bahamian 915555 Estimated GFR > 60 mL/min/1.73 sq m if | DEPARTMENT OF | | Bahamian GFR is estimated using the MDRD equation [...] + + + + | [facility] DEPARTMENT OF | [address] | [place] [address] | | | PATHOLOGY | [address] | | | + + + + + | [facility] DEPARTMENT OF | [address] | [place] [address] | | | PATHOLOGY | [address] [...] + + + + | [facility] DEPARTMENT OF | [address] | [place] [address] | | | PATHOLOGY | [address] | | | + + + + + | [facility] DEPARTMENT OF | [address] [facility] | [place] [address] | | | PATHOLOGY | [address] [...]
--- OUTSIDE RECORDS SUMMARY | ~2018-08-20 | XMS | Encounter Summary ---
Demographics + + + | Address | [address] | | | [place] [address] | + + + | Home Phone [...] [place] camacho | | | | | [address] | | + + + + + Care Team Providers + +------+ + | Care Manager Food Name | Role | Phone | + [...] | Diagnoses | Dustin, | [facility] | | | | | rash, | Tuan Gooden MD | [address] | | | | | unclear | UGO | [address] | | | | | etiology | [address] | Mail Code: | | | | | Procedures | [facility] | [facility] | | | | | Consult | 2010 | for Health | | | | | | ARANZA ARIZMENDI, | and Healing, | | | | | | [place] [address] | 16th floor | | | | | | Phone: | [place], [place] | | | | | | [phone] | [address] | | | | | | Fax: | Phone: | | | | | | [phone] | [phone] | | | | | | | Fax: | | | | | | | [phone] | +--------+--------+ + + + + Encounter Details +--------+---------+ + + + | Date | Type | Department | Care Team | Description | +--------+---------+ + + + | 08/05/ | Office | Dermatology | Kaleb, Khoa Lee, | Rash and Other | | 2008 | Visit | Medical at [facility] 16th | ,PhD Gloria | Nonspecific Skin | | | | Floor [address] [place] | Allergy Asthma | Eruption (Primary | | | | Ave Mail Code: | Dermatology [address] | Dx) | | | | [facility] for | [address] | | | | | Health and [facility], | [place] [address] | | | | | 16 floor | [phone] | | | | | [place], [place] | | | | | | [address] | | | | | | [phone] | | | +--------+---------+ + + + [...] plan of care. Khoa Manuel MD, PhD Car Refinisher, Department of Dermatology [facility] 08/05/2008 Genoveva Galeano Md - 08/05/2008 2:39 [...] done by Dr. Chan in [facility] prior to her gastric by pass [...] the day. She has never seen a retail event assistant. The patient's dermatology intake form was reviewed, [...] Natalie Olsen M.D. Resident, Department of Dermatology [facility] documented in th is encounter Plan of Treatment + + +--------+ + + | Name | Type | Priori | Associated Diagnoses | Order Schedule | | | | ty | | | + + +--------+ + + | WI BIOPSY OF SKIN | Procedures | Routin [...]
--- OUTSIDE RECORDS SUMMARY | ~2018-08-20 | XMS | Encounter Summary ---
Demographics + + + | Address | [address] | | | [place] [address] | + + + | Home Phone [...] [place] camacho | | | | | [address] | | + + + + + Care Team Providers + +------+ + | Care Inside Sales Account Executive Name | Role | Phone [...] | | | | | | [facility] [place] for | | | | | | Health and Healing, | | | | | | 6th floor [place], | | | | | | [place] [address] | | | | | | [phone] | | | +--------+---------+ + + + [...] this encounter Progress Notes Jennifer Johnson, Scarlett Fotrune - 05/05/2006 6:03 PM PSTFormatting of this [...] Performed At | + + + | [id number] Estimated GFR = 60 mL/min/1.73 sq m if non- | [facility] | | [id number] Estimated GFR > 60 mL/min/1.73 sq m [...] | [facility] DEPARTMENT OF | [address] | [place] [address] | | | PATHOLOGY | [address] | | | + + + + + | [facility] DEPARTMENT OF | [address] | [place] [address] | | | PATHOLOGY | [address] [...] [facility] | [address] | [place] [address] | | | PATHOLOGY | [address] | | | + + + + + | [facility] | [address] | [place] [address] | | | PATHOLOGY | [address] | | | + + + + + documented in this encounter Visit Diagnoses + + | Diagnosis | + + | Obesity - Primary Obesity, unspecified | + + documented in this encounter
--- OUTSIDE RECORDS SUMMARY | ~2018-08-20 | XMS | Encounter Summary ---
Demographics + + + | Address | [address] | | | [place] [address] | + + + | Home Phone [...] [place] camacho | | | | | [address] | | + + + + + Care Team Providers + +------+ + | Care Radiology Services Manager Name | Role | Phone | + +------+ + | Tuan Chan MD | PCP | | + +------+ + Encounter Details +--------+--------+ + + + | Date | Type | Department | Care Team | Description | +--------+--------+ + + + | 05/18/ | Intake | Transfer Center | | N/A | | 2019 | | [address] | | | | | | [place], | | | | | | [place] [address] | | | +--------+--------+ + + + [...]
--- OUTSIDE RECORDS SUMMARY | ~2018-08-20 | XMS | Encounter Summary ---
Demographics + + + | Address | [address] | | | [place] [address] | + + + | Home Phone [...] [place] camacho | | | | | [address] | | + + + + + Care Team Providers + +------+ + | Care Hide Shaker Name | Role | Phone | + [...]
--- OUTSIDE RECORDS SUMMARY | ~2018-08-20 | XMS | Encounter Summary ---
Demographics + + + | Address | [address] [place] [address] | | | [place] [address] | + + + | Home Phone [...] [place]NAC[place] camacho | | | | | [address] | | + + + + + Care Team Providers + +------+ + | Care Loom Checker Name | Role | Phone | [...] 2005 | Activity | Hermila Muir | [address] | | | | | [facility] Mailcode: | [place], [place] | | | | | [address] [place], [place] | [address] | | | | | [address] | [phone] | | | | | [phone] | | | +--------+ + + + [...]
--- OUTSIDE RECORDS SUMMARY | ~2018-08-20 | XMS | Encounter Summary ---
Demographics + + + | Address | [address] | | | [place] [address] | + + + | Home Phone [...] [place]NAC[place] camacho | | | | | [address] | | + + + + + Care Team Providers + +------+ + | Care Rent Collector Name | Role | Phone | [...] 06/02/ | Office | Preoperative | 1, [facility] Engineer Freight [address] | Other Specified | | 2007 | Visit | Medicine Clinic at | [facility] [address] | Pre-Operative | | | | [facility] 4th Floor [address] | [place] [address] | Examination (Primary | | | | [address] | | Dx) | | | | Code: [address] | | | | | | for Health and | | | | | | Healing,4th Floor | | | | | | [place], [place] | | | | | | [address] | | | | | | [phone] | | | +--------+---------+ + + + [...] [facility] DEPARTMENT OF | [address] | [place] [address] | | | PATHOLOGY | [address] | | | + + + + + | [facility] DEPARTMENT OF | [address] | [place] [address] | | | PATHOLOGY | [address] [...] Performed At | + + + | 133976 Estimated GFR = 48 mL/min/1.73 sq m if non- | [facility] | | 168437 Estimated GFR = 59 mL/min/1.73 sq m [...] + | [facility] | [address] | [place] [address] | | | PATHOLOGY | [address] | | | + + + + + | [facility] | [address] | [place] [address] | | | PATHOLOGY | [address] [...] + + + | Please click | [facility] OF | | on view image for the detailed interpretation from [employer] results. | CARDIOLOGY | | | | + + + + + + + + | Performing | Address | City/State/Zipcode | Phone Number | | Organization | | | | + + + + + | [facility] DEPT OF | [address] | [place], [place] | | | CARDIOLOGY | [address] | [address] | | + + + + + | [facility]PT OF | [address] | [place], [place] | | | CARDIOLOGY | [address] | [address] | | + + + + + documented in this encounter Visit Diagnoses + + | Diagnosis | + + | Other specified pre-operative examination - Primary | + + documented in this encounter
[~2018-08-20 16:11] MED LIST changes: +CEFDINIR300 MG PO; +K-TAB ER20 MEQ PO; +PREVNAR 13 SYR0.5 ML
[2018-08-20] MEDS ORDERED: NYSTATIN1 EAC2 MISC (16:45)
--- NOTE | 2018-08-20 19:45 | NUR ---
Patient arrived to unit via stretcher, breathing is even and unlabored, vitals WNL. Slid over to bed with assistance from RN Darrell and SHAAN Hood, FLAT CUTTER Kiana. Patient is disoriented to time, place, and situation, follows commands appropriately. HR and BP WNL, peripheral pulses well felt in all extremities. 3+ pitting edema noted to BLE, generalized edema to BUE note. Lungs are clear in upper pandya, diminished in bases, taking shallow breaths, has pain with deep breathing, reports fall a few days ago, daughter states "she has some broken ribs on the right side." Notified Dr. Barkley of the pain, lidocaine patch ordered. Abdomen is non-tender, denies nausea. Scattered scabs noted on all extremities, reddened christine area, reddened coccyx, both blanching, rash noted on sternum and under left and right breast. IV sites intact x2, IVF infusing started in ED. Patient denies needs at this time, family at bedside, RN remains at bedside to finish admit.
--- NOTE | 2018-08-20 20:50 | NUR ---
Germaine called to have assistance using the BSC. She resulted in 400cc. She moves well on her own. Bed Alarm reset and call light within reach.
--- NOTE | 2018-08-20 21:59 | NUR ---
SHAAN Kerr and myself gave pt a complete bed bath. She stated "I feel a lot better after getting cleaned, thank you". I also appiled lotion to her legs.
--- NOTE | 2018-08-20 23:45 | NUR ---
Assessment done, no acute changes from previous, patient remains disoriented to time, place, and situation, requires bed alarm, is impulsive and does not use call light. Vitals remain WNL, patient states that lidocaine patch has improved pain. Denies needs at this time, call light within reach, bed alarm on.
--- NOTE | 2018-08-21 00:30 | NUR ---
Patient is restful with eyes closed, breathing is even and unlabored, vitals WNL, call light within reach, bed alarm on.
--- NOTE | 2018-08-21 01:40 | NUR ---
AFTER RN ENTERED ROOM, NOTED THAT PATIENT WAS SHOWING SEIZURE-LIKE ACTIVITY, EYES ROLLED IN BACK OF HEAD, TREMORS TO BOTH ARMS, BACK ARCHED. QUICKLY BECAME APNEIC, SPO2 33%, MAIKOL FINNEGAN CALLED, BEGAN VENTILATION WITH BVM, SEE CODE SIVAN CHARTING.
--- NOTE | 2018-08-21 03:12 | NUR ---
A code blue was called @0143 so i ran from med surg. When i arrived in patient room i immediately started raising the bed and flatten it. I was asked to textile supervisor suction by SHAAN Hood but SHAAN Manzo grabbed it because she was closer. this is all i did during the code.
--- NOTE | 2018-08-21 03:15 | NUR ---
0143 CODE BLUE CALLED IN ROOM 130. CODE CART IN ROOM. PT BAGGED BY CCU RN. PT ALREADY HAD IV SITES X2 22RHA/20LAC PRESENT. 0144 CODE TEAM ARRIVED. MD WILSON, GLOBAL EXPANSION SALES DIRECTOR, MS RN, RT, LAB, CCU RN, BLAYNE RN, MACHINIST WOOD, IMAGING. RT TAKING OVER AIRWAY MANAGEMENT. 0144 PT WAS SUCTIONED. 0150 PT AT THIS TIME ON RA WITH O2 SATS @ 90%. MD POZO WAS ALSO CALLED VIA PHONE. MD POZO IS ON HIS WAY. 0152 2MG IV ATIVAN WAS GIVEN. 0153 O2 SATS AT 84%, RT PUT PT ON OXYMASK AT 4L O2. 0158 INSERTION ON NASAL AIRWAY BY RT SEIZE 8.0 IN LEFT NOSTRIL 0202 MD POZO ARRIVED. 0208 EKG ORDERED AND STARTED BY RT. 0212 EKG FINISHED. ABNORMAL EKG. 0219 PT AT THIS TIME ON OXYMASK 2L O2. PT IS ABLE TO MAINTAIN OWN AIRWAY. 0229 RT RELEASED FROM AIRWAY MANAGEMENT OF THIS PT. 0230 MD POZO MADE DECISION TO TRANSFER TO [facility]. AT THIS TIME CODE HAS STOPPED AND TRANSFER PROCESS HAS BEEN STARTED. PLEASE SEE V/S TAB FOR ALL RECORDED V/S.
--- NOTE | 2018-08-21 03:17 | EKG ---
[facility] [address] [facility] [place] [address] Signed Normal sinus rhythm Nonspecific ST and T wave abnormality Abnormal ECG When compared with ECG of 07-JUN-2018 08:35, Non-specific change in ST segment in Lateral leads Confirmed by JEANETTE POZO MD ([id number]) on 08/21/2018 3:17:30 AM Electronically Signed By: JEANETTE POZO MD 08/21/18 0317 PATIENT NAME: ANTONIETTABUTCH CHARLY Electrocardiogram DATE OF : 43 PHYSICIAN: JEANETTE POZO MD REPORT #: [id number] REPORT IS CONFIDENTIAL AND NOT TO BE RELEASED WITHOUT AUTHORIZATION
--- NOTE | 2018-08-21 03:30 | NUR ---
Patient transfered to [facility] via EMS ground, now out of unit.
--- NOTE | 2018-08-22 12:33 | EKG ---
[facility] [address] [facility] [place] [address] Signed Sinus rhythm with frequent premature ventricular complexes and fusion complexes Nonspecific ST and T wave abnormality Prolonged QT Abnormal ECG When compared with ECG of 20-AUG-2018 16:29, (Unconfirmed) fusion complexes are now present premature ventricular complexes are now present Nonspecific T wave abnormality has replaced inverted T waves in Lateral leads Confirmed by JEANETTE POZO MD ([id number]) on 08/22/2018 12:32:50 PM Electronically Signed By: JEANETTE POZO MD 08/22/18 1233 PATIENT NAME: BUTCH MANE Electrocardiogram DATE OF : 43 PHYSICIAN: JEANETTE POZO MD REPORT #: [id number] REPORT IS CONFIDENTIAL AND NOT TO BE RELEASED WITHOUT AUTHORIZATION
== END 2018-08-21 03:12 | disposition short-term general hospital (02) ==
LOC: ED 16:11 → CCU 16:12
PROVIDERS: ADMIT Internal Medicine
DX: G40.409 Other generalized epilepsy and epileptic syndromes, not intractable, without status epilepticus (principal); E86.0 Dehydration; N30.00 Acute cystitis without hematuria; I69.319 Unspecified symptoms and signs involving cognitive functions following cerebral infarction; I10 Essential (primary) hypertension; R40.2432 Glasgow coma scale score 3-8, at arrival to emergency department; I69.328 Other speech and language deficits following cerebral infarction; I25.10 Atherosclerotic heart disease of native coronary artery without angina pectoris; E87.2 Acidosis; L30.4 Erythema intertrigo; R07.9 Chest pain, unspecified; Z95.1 Presence of aortocoronary bypass graft; Z95.5 Presence of coronary angioplasty implant and graft; Z87.891 Personal history of nicotine dependence; Z66 Do not resuscitate; Z88.5 Allergy status to narcotic agent; Z79.02 Long term (current) use of antithrombotics/antiplatelets; Z79.899 Other long term (current) drug therapy
CPT/HCPCS: 36415; 70450; 71045; 80048; 80053; 81001; 82140; 83605; 83735; 84484; 85025; 85610; 87077; 87088; 87186; 93005; 93010; 96372; 96375; 99285-25; G0378; G0480; J0696; J1650; J1953; J2060; J3480; J7030; J7060

== ENCOUNTER 2018-09-27 16:48 | Inpatient (IN) | payer MEDICARE, OTHER ==
[~2018-09-27] VITALS: Ht 162.6 cm; Wt 64.5 kg
[~2018-09-27 16:48] MED LIST changes: +DESENEX43 GM TOP; +LISINOPRIL20 MG PO; -LISINOPRIL5 MG PO
[2018-09-27] MEDS ORDERED: PROTONIX40 MG PO (16:58)
[2018-09-27] MEDS ORDERED: LIPITOR40 MG PO (16:59)
[2018-09-27] MEDS ORDERED: FUROSEMIDE20 MG PO (16:59)
[2018-09-27] MEDS ORDERED: ONDANSETRON ODT4 MG PO (16:59)
[2018-09-27] MEDS ORDERED: CALCIUM500 M1 PO (16:59)
[2018-09-27] MEDS ORDERED: SENNA8.6 MG PO (17:00)
[2018-09-27] MEDS ORDERED: VENTOLIN HFA18 GM INH (17:00)
[2018-09-27] MEDS ORDERED: KEFLEX500 MG PO (20:02)
--- NOTE | 2018-09-27 21:36 | NUR ---
PT ARRIVED TO THE FLOOR, PT ABLE TO AMBULATE FROM BED TO BED, PT ALERT, VISITING WITH STAFF, ACCOMPANIED BY FAMILY, ELIJAH NETWORK SUPPORT ADMINISTRATOR IN ROOM TO FINISH ADMISSION, CALL LIGHT WITHIN REACH. FALL PRECAUTIONS IN PLACE.
--- NOTE | 2018-09-27 21:45 | NUR ---
PT ADMITTED TO ROOM 109 @ 2133; FROM [facility], ACCOMPAINED BY HER DAUGHTER AND FRIEND. PT TALKATIVE, ABLE TO ANSWER QUESTIONS WITH DAUGHTER SUPPORT. PT HAS DX OF DEMENTIA; AMBULATORY AT [facility], USES BATHROOM ON HER OWN, FAMILY AGREED THAT A BED ALARM WOULD NEED TO BE USED, PT WILL BE FORGETFUL TO REMEMBER TO USE HER CALL LIGHT. ROOM AIR, ON A CLEAR LIQUID DIET, OFFERED CHICKEN BROTH, APPLE JUICE AND WATER. DAUGHTER STATES THAT PT DOES SMOKE A LITTLE, DESPITE PT WANTING TO SMOKE MORE; BED ALARM IN PLACE, PT WATCHING TV, PREFERS GAME SHOWS. PT WAS ABLE TO SHOW RN WHICH BUTTON TO PUSH TO CALL RN.
--- NOTE | 2018-09-27 22:29 | NUR ---
PT RESTING IN BED, PT PLEASANTLY CONFUSED, ORIENTED ONLY TO NAME, PT SLOW TO RESPOND, PT UNABLE TO STATE HER , PT IS WATCHING TV, COMMUNICATES APPROPRIATELY, ON RA, VSS, NO SIGNS OF DISTRESS OR AGITATION,, IV FLUIDS INFUSING PER EMAR WNL, PT GIVEN BROTH AND APPLE JUICE PER REQUEST, IV DRESSING REPLACED, FLUSHES/INFUSES WELL, GOOD BLOOR RETURN, PT C/O 5/10 PAIN IN HER ABDOMEN, GRABBING AT HER ABDOMEN AND GRIMACING, PT GIVEN PRN PAIN MEDICATION PER EMAR, ABDOMEN DISTENDED, NOTED INDURATION IN RUQ, ABD TENDER. PT EDUCATED TO USE CALL LIGHT IF NEED TO VOID, OR ASSISTANCE, BED ALARM ON, FALL PRECAUTIONS IN PLACE.
[2018-09-27] MEDS ORDERED: TOPROL XL25 MG PO (22:36)
[2018-09-27] MEDS ORDERED: LASIX20 MG PO (22:37)
[2018-09-27] MEDS ORDERED: KEPPRA750 MG PO ×2 (22:38)
--- NOTE | 2018-09-28 01:00 | NUR ---
PT RESTING IN BED, EYES CLOSED, BREATHS EVEN, UNLABORED, IV FLUIDS INFUSING PER EMAR WNL. CALL LIGHT WITHIN REACH. BED ALARM ON.
--- NOTE | 2018-09-28 02:36 | NUR ---
PT C/O 09/07 ABDOMINAL PAIN, PRN PAIN MEDICATION GIVEN PER EMAR, PT RESTING IN BED, IV FLUIDS INFUSING PER EMAR WNL, PT REMAINS PLEASANTLY CONFUSED, NO REQUESTS AT THIS TIME, CALL LIGHT WITHIN REACH.
--- NOTE | 2018-09-28 03:37 | NUR ---
PT RESTING IN BED, EYES CLOSED, BREATHS EVEN, UNLABORED, NO REQUESTS AT THIS TIME, CALL LIGHT WITHIN REACH, BED ALARM ON. IV FLUIDS INFUSING PER EMAR WNL.
--- NOTE | 2018-09-28 05:06 | NUR ---
PT PLEASANTLY CONFUSED, APPROPRIATE BUT SLOW TO RESPOND, HX OF DEMENTIA, ORIENTED TO NAME, PT RECEIVED PRN PAIN MEDICATION X2 THIS SHIFT RELATED TO ABDOMINAL PAIN, PT HAS NOT HAD ANY N/V/D, 1 PERSON ASSIST/FWW, IV FLUIDS/ABX INFUSED PER EMAR WNL. BED ALARM ON DUE TO CONFUSION. PT'S VSS, UO QS.
--- NOTE | 2018-09-28 05:58 | NUR ---
PT RESTING IN BED, DENIES ANY NEED FOR PRN PAIN MEDICATION AT THIS TIME, PT PLEASANT, VISITING WITH LAB, IV ABX INFUSING PER EMAR WNL, NO REQUESTS AT THIS TIME, CALL LIGHT WITHIN REACH. VSS.
--- NOTE | 2018-09-28 07:39 | NUR ---
Pt sitting up in chair at this time, resp even and non labored. Pt denies needs at this time. Personal supplies within reach.
--- NOTE | 2018-09-28 07:47 | NUR ---
PATIENT UP TO CHAIR, 1PA FWW. CHAIR ALARM ON. WARM WASHCLOTH GIVEN. CALL LIGHT IN REACH. NO FURTHER NEEDS AT THIS TIME.
--- NOTE | 2018-09-28 08:42 | NUR ---
ADMIN MORPHINE 2MG IVP FOR REPORTS OF 6/10 ABD PAIN.
--- NOTE | 2018-09-28 12:07 | NUR ---
Medications reconciled using facility [facility]
--- NOTE | 2018-09-28 15:17 | EKG ---
[facility] [address] [facility] [place] [address] Signed Sinus bradycardia with premature atrial complexes with aberrant conduction Low voltage QRS Nonspecific T wave abnormality Abnormal ECG When compared with ECG of 21-AUG-2018 02:06, fusion complexes are no longer present premature ventricular complexes are no longer present aberrant conduction is now present T wave amplitude has increased in Anterior leads Confirmed by BRIGITTE WEN DO ([id number]) on 09/28/2018 3:17:18 PM Electronically Signed By: BRIGITTE WEN DO 09/28/18 1517 PATIENT NAME: BUTCH MANE Electrocardiogram DATE OF : 43 PHYSICIAN: BRIGITTE WEN DO REPORT #: [id number] REPORT IS CONFIDENTIAL AND NOT TO BE RELEASED WITHOUT AUTHORIZATION
--- NOTE | 2018-09-28 15:18 | NUR ---
PATIENT IN BED RESTING, BED ALARM ON. DEPENDS CHECKED, NO VOID, RN NOTIFIED. CALL LIGHT IN REACH. NO FURTHER NEEDS AT THIS TIME.
--- NOTE | 2018-09-28 17:41 | NUR ---
Dr. Norwood aware of heart rate in 50's.
--- NOTE | 2018-09-28 18:02 | NUR ---
PATIENT SITTING IN CHAIR COLORING. CALL LIGHT IN REACH. NO FURTHER NEEDS AT THIS TIME.
--- NOTE | 2018-09-28 18:24 | HP ---
[facility] [address] [place], [place] [address] Signed ADMISSION DATE: 09/27/2018 REASON FOR ADMISSION: Abdominal pain, recent fall, and "possible swirl" of enteric mesentery left upper abdomen. HISTORY: A 72-year-old white woman is known to me from 2014, at which time she underwent incisional hernia repair. She had previously undergone a Saniya-en-Y gastric bypass and developed an incisional hernia for which repair was undertaken. In the meantime, she developed a stroke and has significant amount of dementia. She lives in a group foster home in [place]. She is accompanied by her daughter and son-in-law at this time. Her issue was a fall that occurred yesterday at the alf. She had some abdominal pain. She was brought to the emergency room and underwent evaluation. This included a head CT, chest x-ray, and ultimately abdominal CT scan. There is no sign of head or chest or rib problem and the spleen appears intact as does the liver. However, noted by the radiologist in the mid-abdomen was an area of "swirl" without sign of bowel obstruction that was concerning for possible internal hernia or evolving volvulus. The patient has had no nausea or vomiting and complains of no pain, though her level of dementia is significant enough that her history is unreliable. On examination, she does have some left upper abdominal tenderness and left mid abdominal tenderness. She has no sign of distention. Does not look systemically toxic. She is admitted for further evaluation and care to dominantly perform observation. Of note, her lab studies were normal with a white count of 7.6 and hematocrit of 35.8 with a chem profile showing potassium of 3.3, creatinine of 0.61, and normal lactic acid of 0.8. Her toxicology screen was normal. Urinalysis was slightly abnormal with greater than 50 white cells per high-power field, 3+ bacteria, and squamous 1+. This was based on a clean-catch specimen. Coag studies were normal with an INR of 0.9. MEDICATIONS: At the time of admission, medications include Plavix, Lasix, metoprolol, pantoprazole, senna, cephalexin q.i.d., and calcium carbonate. ALLERGIES: She has allergies to codeine. SOCIAL HISTORY: She lives in a alf as previously described. She is verbal and very pleasant and Electronically Signed By: SALUD OLIVAREZ MD 09/28/18 1824 PATIENT NAME: BUTCH MANE HISTORY AND PHYSICAL DATE OF : 43 REPORT #: [id number] PHYSICIAN: SALUD OLIVAREZ MD PCP: JOSE ROBERTO BAH MD REPORT IS CONFIDENTIAL AND NOT TO BE RELEASED WITHOUT AUTHORIZATION [facility] [address] [place], [place] [address] Signed cooperative, but an unreliable historian. REVIEW OF SYSTEMS: She denies any shortness of breath or chest pain. Complains only of abdominal pain after manipulation. Denies any lower extremity problem. PHYSICAL EXAMINATION: GENERAL: She is a very pleasant, but clearly somewhat demented white woman accompanied by her daughter and son-in-law. HEENT: Mucous membranes are moist. NECK: Trachea is midline. There is no carotid bruit. CHEST: Clear. HEART: Regular without murmur. ABDOMEN: Nondistended and is scaphoid. There is a subcostal and a midline incision. Palpation reveals no sign of recurrent hernia from prior hernia repair in 2015. She does have some tenderness in the left upper and left mid abdomen. There is no palpable mass. Auscultation reveals normal bowel sounds prior to examination and palpation. EXTREMITIES: Show no clubbing, cyanosis, or edema. ASSESSMENT AND PLAN: I reviewed her CT scan from today and also the CT scan performed on June 07, 2018. The swirl sign is present, but I see no sign of bowel edema or sign of internal hernia at this point. Given her history of gastric bypass, however, a high degree of vigilance is needed if there is an evolving internal hernia. Though she seems reasonably well at this time, it may be best to admit for observation to see if she progresses in symptoms or signs that would indicate need for exploration. convinced she had an internal hernia or volvulus of any sort to be operated this evening of course, but given her paucity of symptoms and ambiguity of her exam in some ways, I believe observation is the most prudent course at this time. Discussed this with the emergency room physician, Dr. Parnell, as well as family and the patient who all agree. MD ROSALVA Malone/MICHAELL /[id number] Electronically Signed By: SALUD OLIVAREZ MD 09/28/18 1824 PATIENT NAME: BUTCH MANE HISTORY AND PHYSICAL DATE OF : 43 REPORT #: [id number] PHYSICIAN: SALUD OLIVAREZ MD PCP: JOSE ROBERTO BAH MD REPORT IS CONFIDENTIAL AND NOT TO BE RELEASED WITHOUT AUTHORIZATION [facility] [address] [place] [address] Signed cc: Socorro Parnell MD Copies: SOCORRO PARNELL MD ~ Electronically Signed By: SALUD OLIVAREZ MD 09/28/18 1824 PATIENT NAME: BUTCH MANE HISTORY AND PHYSICAL DATE OF : 43 REPORT #: [id number] PHYSICIAN: SALUD OLIVAREZ MD PCP: JOSE ROBERTO BAH MD REPORT IS CONFIDENTIAL AND NOT TO BE RELEASED WITHOUT AUTHORIZATION
--- NOTE | 2018-09-28 18:29 | NUR ---
PT CONFUSED. TOLERATED REGULAR DIET. 1PA, IMPULSIVE, BED/CHAIR ALARM. PT DOES NOT CALL APPROP. [email or web address]. PO ABX. LIKELY TO GO HOME TMRW.
--- NOTE | 2018-09-28 19:57 | NUR ---
RECEIVED REPORT FROM DAY SHIFT RN. PATIENT IS RESTING IN BED WATCHING TV. PATIENT DENIES ANY NEEDS AT THIS TIME. CALL JANEEN LAURENCE BALDERAS. BED ALARM ON FOR SAFETY.
--- NOTE | 2018-09-28 20:53 | NUR ---
PATIENT ASSESMENT COMPLETED. PATIENT PULLED IV. PATIENT ASSISTED TO THE RESTRROM A SBA. PATIENT WAS ABLE TO VOID. PATIENTS VITALS TAKEN AND RECORDED. PATIENTS INTAKE NAD OUTPUT RECORDED. PATIENT DENIES ANY PAIN OR NAUSEA. PATIENT IS CONFUSED. PATIENT IS ONLY OREINETED TO SELF. PATIENT DENIES ANY NEEDS. CALL LIGHT IN REACH. BED ALARM ON FOR SAFETY.
--- NOTE | 2018-09-28 22:20 | NUR ---
PATIENT IS RESTING IN BED WITH EYES CLOSED, RR 17. CALL LIGHT IN REACH. ALARM ON FOR SAFETY.
--- NOTE | 2018-09-29 00:05 | NUR ---
PATIENT IS RESTING IN BED WITH EYES CLSOED, RR 18. CALL LIGHT IN REACH. BED ALARM ON FOR SAFETY.
--- NOTE | 2018-09-29 02:59 | NUR ---
PATIENT ASSISTED TO REPOSITION IN BED. PATIENT DENIES THE NEED TO USE THE RESTROOM. PATEINTS WATER REFILLED. PATIENT DENIES ANY FURTHER NEEDS. CALL LIGHT IN REACH. BED ALARM ON FOR SAFETY.
--- NOTE | 2018-09-29 04:53 | NUR ---
PATIENT IS RESTING IN BED WITH EYES CLOSED, RR 17. CALL LIGHT IN REACH. BED ALARM ON FOR SAFETY.
--- NOTE | 2018-09-29 04:54 | NUR ---
PATIENT RESTED WELL THROUGHOUT THE SHIFT. PATIENT IS ON A REGULAR DIET, TOLERATING WELL, AND SAVI COMPLAINTS OF NAUSEA. PATIENT IS ON RA. PATIENT IS A SBA TO BATHROOM. PATIENT HAS NO IV SHE PULLED IT OUT LAST NIGHT. PATIENT IS CONFUSED AND FORGETFUL AT TIMES. PATIENT IS ONLY OREINTED TO SELF. BED ALARM ON FOR SAFETY. PATIENT DENIED ANY PAIN.
--- NOTE | 2018-09-29 05:24 | NUR ---
PATIENTS VITALS TAKEN AND RECORDED. PATIENTS INTAKE AND OUPUT RECORDED. PATIENT DENIES ANY PAIN OR NAUSEA AT THIS TIME. NO NEEDS NOTED. CALL LIGHT IN REACH. PATIENTS BED ALARM IS ON FOR SAFETY.
--- NOTE | 2018-09-29 08:07 | NUR ---
Pt sitting up in chair at this time, resp even and non labored. Chair alarm intact. Personal supplies and call light within reach. No needs at this time.
--- NOTE | 2018-09-29 09:00 | NUR ---
PLAN FOR PATIENT TO DISCHARGE BACK TO GROUP HOME TODAY. CALL TO FACILITY AT [facility] AND SPOKE WITH AGRICULTURAL EQUIPMENT DESIGN ENGINEER LEO WHO AGREED TO PICKING PATIENT UP PERSONALLY AND BEING HERE FOR DISCHARGE INSTRUCTION. LEO REQUESTED DISCHARGE INSTRUCTION AND MEDICATIONS BE FAXED TO [phone]. PROVIDED CHARGE ALEX WATERS WITH INFORMATION.
[2018-09-29] MEDS ORDERED: AMOXICILLIN500 MG PO (09:05)
--- NOTE | 2018-09-30 16:02 | DS ---
[facility] [address] [place], [place] [address] Signed ADMISSION DATE: 09/27/2018 DISCHARGE DATE: 09/29/2018 REASON FOR ADMISSION: This 72-year-old white woman presented to the emergency room with left-sided abdominal pain. She had sustained a fall in her senior living living arrangement and concern was maintained for possible injury related to the fall. She had fallen the day before in her senior living. A CT scan was done, which showed no sign of traumatic injury to the chest wall, spleen or elsewhere, but there was an area in the mid abdomen considered with a "vascular swirl sign" but without sign of bowel obstruction or actual volvulus. Concern was maintained for possible internal hernia or evolving volvulus. Notably, the patient did have a Saniya-en-Y gastric bypass in the distant past. The patient was known to me from 2014, at which time, she underwent incisional hernia repair related to her Saniya-en-Y gastric bypass. She has no sign of recurrent hernia, it is noted. The patient has a considerable amount of dementia at this point. This is related to a stroke she sustained. She is admitted for further evaluation of possible evolving bowel obstruction problem related to findings on CT scan. PERTINENT PHYSICAL EXAMINATION: GENERAL: Showed a very pleasant, but clearly demented white woman, accompanied by her daughter and son-in-law. HEENT: Mucous membranes are moist. Trachea is midline. There is no carotid bruit. CHEST: Clear. HEART: Regular without murmur. ABDOMEN: Nondistended and scaphoid. There is a subcostal and a midline incision palpated. EXTREMITIES: Reveals no sign of recurrent hernia from prior hernia repair in 2014. She does have tenderness in left upper and left mid abdomen. No palpable mass. Auscultation reveals normal bowel sounds. EXTREMITIES: Normal. HOSPITAL COURSE: She was admitted, given intravenous fluids and maintained on n.p.o. status generally. Clear liquids were begun, which she seemed to tolerate well. An abdominal x-ray showed nonspecific gas pattern, certainly no sign of evolving bowel obstruction or other similar problem. Lab studies were performed, which showed continued normal electrolytes and liver enzymes and a CBC, which was also unremarkable. White count was 7.3, hematocrit 32.4, and platelets 208,000. Urinalysis at time of admission had shown Electronically Signed By: SLAUD OLIVAREZ MD 09/30/18 1602 PATIENT NAME: BUTCH MANE DISCHARGE SUMMARY DATE OF : 43 REPORT #: [id number] PHYSICIAN: SALUD OLIVAREZ MD PCP: JOSE ROBERTO JONES MD REPORT IS CONFIDENTIAL AND NOT TO BE RELEASED WITHOUT AUTHORIZATION [facility] [address] [place], [place] [address] Signed findings suggestive of urinary tract infection. There were 15 white cells per high-power field. She was noted to have a catheter urine specimen on August 20, 2018 showing E coli urinary tract infection, which at that time was obtained by her primary provider, Dr. Jones. Given her somewhat ambiguous urinalysis findings, Ancef intravenously was administered and transitioned ultimately to amoxicillin. Notably, her E coli urinary tract infection two months ago was sensitive to amoxicillin. She was advanced with her diet, which she tolerated well. Examination shows no abnormality and she is happy and alert (for her) with no sign of evolving intraabdominal problem. She will be discharged back to her senior living living situation. If she should get recurrent symptoms, re-evaluation may well be necessary as the reliability of her history is minimal given her underlying dementia related to stroke. DISCHARGE MEDICATIONS: Include amoxicillin 500 mg p.o. b.i.d. #10. She will resume her Plavix 75 mg p.o. daily, lisinopril 20 mg daily, miconazole nitrate (Desenex powder) as needed between skin folds, Protonix 40 mg daily for reflux, Lipitor 40 mg p.o. at bedtime for high cholesterol, calcium carbonate 500 mg p.o. daily, Zofran 4 mg tablet q.8 hours as needed for nausea, albuterol inhaler q.4 hours as needed for wheezing, senna tablets one p.o. as needed for constipation, metoprolol 25 mg daily for hypertension, and Lasix 20 mg p.o. every two days for peripheral edema, and Keppra 750 mg p.o. b.i.d. for seizure disorder. DISCHARGE DIAGNOSES: 1. Abdominal pain following ground level fall without sign of obvious traumatic injury. 2. Incidental finding of "swirl" of mesenteric vessels, but without associated obstruction, bowel edema, or progression on close observation and exam. 3. History of dementia related to cerebrovascular accident. 4. History of Saniya-en-Y gastric bypass and subsequent incisional hernia repaired in 2014 (durable repair). 5. Seizure disorder. 6. Hypertension. 7. Reactive airways. 8. Clinical reflux symptoms. FOLLOWUP PLAN: She will return to the ongoing care of Dr. Jones, her primary provider. If she should have recurrent symptoms, re-evaluation may be necessary. Likely, the most efficient way for that would be re-evaluation to the emergency room. Electronically Signed By: SALUD OLIVAREZ MD 09/30/18 1602 PATIENT NAME: BUTCH MANE DISCHARGE SUMMARY DATE OF : 43 REPORT #: [id number] PHYSICIAN: SALUD OLIVAREZ MD PCP: JOSE ROBERTO JONES MD REPORT IS CONFIDENTIAL AND NOT TO BE RELEASED WITHOUT AUTHORIZATION [address] [place] [address] Signed MD ROSALVA Malone/MICHAELL /[id number] cc: Jose Roberto Jones MD [facility] Emergency Room Copies: JOSE ROBERTO JONES MD ~ Electronically Signed By: SALUD OLIVAREZ MD 09/30/18 1602 PATIENT NAME: BUTCH MANE DISCHARGE SUMMARY DATE OF : 43 REPORT #: [id number] PHYSICIAN: SALUD OLIVAREZ MD PCP: JOSE ROBERTO JONES MD REPORT IS CONFIDENTIAL AND NOT TO BE RELEASED WITHOUT AUTHORIZATION
== END 2018-09-29 11:45 | disposition home or self-care (01) | DRG 392 ==
LOC: ED 16:48 → MS 21:03
PROVIDERS: ADMIT Surgery
DX: R10.84 Generalized abdominal pain (principal); N39.0 Urinary tract infection, site not specified; R93.5 Abnormal findings on diagnostic imaging of other abdominal regions, including retroperitoneum; F01.50 Vascular dementia, unspecified severity, without behavioral disturbance, psychotic disturbance, mood disturbance, and anxiety; I69.818 Other symptoms and signs involving cognitive functions following other cerebrovascular disease; I10 Essential (primary) hypertension; G40.909 Epilepsy, unspecified, not intractable, without status epilepticus; K21.9 Gastro-esophageal reflux disease without esophagitis; J45.909 Unspecified asthma, uncomplicated; Z88.5 Allergy status to narcotic agent; Z98.84 Bariatric surgery status; Z79.02 Long term (current) use of antithrombotics/antiplatelets; Z79.899 Other long term (current) drug therapy
CPT/HCPCS: 36415; 70450; 71046; 74018; 74177; 80053; 81001; 83605; 83690; 84484; 85025; 93005; 93010; 94760; 99285-25; 99406; J0690; J1644; J2270; J7120

== ENCOUNTER → 2018-12-15 | Emergency (ER) | payer MEDICARE, OTHER ==
[~2018-12-15] VITALS: Ht 154.9 cm; Wt 61.2 kg
[~2018-12-15] MED LIST changes: +ACETAMINOPHEN500 M1 PO; +AMOXICILLIN500 MG PO; +CALCIUM CARBON500 MG PO; +CALCIUM500 M1 PO; +CLOPIDOGREL75 MG PO; +FERROUS SULFAT324 MG PO; +FUROSEMIDE20 MG PO; +HYDROCORTISONE1.5 GM; +KEFLEX500 MG PO; +KEPPRA750 MG PO; +LASIX20 MG PO; +LIPITOR40 MG PO; +LOPERAMIDE2 M1 PO; +ONDANSETRON ODT4 MG PO; +PANTOPRAZOLE SO40 MG PO; +PROTONIX40 MG PO; +SENNA8.6 MG PO; +SUPER B-50 COM1 EACH PO; +TOPROL XL25 MG PO; +VENTOLIN HFA18 GM INH; +VITAMIN B-1250 MCG; +ZOFRAN4 MG PO
== END ==
LOC: ED 13:56
DX: R56.9 Unspecified convulsions (principal); S20.211A Contusion of right front wall of thorax, initial encounter; Z91.19 Patient's noncompliance with other medical treatment and regimen; X58.XXXA Exposure to other specified factors, initial encounter
CPT/HCPCS: 71045; 80053; 81001; 85025; 96361; 96365; 99285-25; G0480; J1953; J7040; J7060

== ENCOUNTER 2019-01-13 15:39 | Emergency (ER) | payer MEDICARE, OTHER ==
[~2019-01-13] VITALS: Ht 154.9 cm; Wt 57.6 kg
--- OUTSIDE RECORDS SUMMARY | ~2019-01-13 | XMS | Encounter Summary ---
Demographics + + + | Address | [address] | | | [place] [address] | + + + | Home Phone | | + + + | Preferred Language | Unknown | + + + | Marital Status | | + + + | Advent Affiliation | PRO | + + + | Race | White | + + + | Ethnic Group | Not or | + + + Author + + + | Author | [facility] | + + + | Organization | [facility] | + + + | Address | Unknown | + + + | Phone | Unavailable | + + + Support + + + + + | Name | Relationship | Address | Phone | + + + + + | Hector Mack | ECON | [address] | | | | | [place] | | | | | [address] | | + + + + + Care Team Providers + +------+ + | Care Cuff Setter Name | Role | Phone | + +------+ + | Tuan Chan MD | PCP | | + +------+ + Encounter Details +--------+ + + + + | Date | Type | Department | Care Team | Description | +--------+ + + + + | 06/17/ | Hospital | Registration [id number] | [address]e [address]dez, | | | 2007 | Activity | [address] | [address] | | | | | [place] Mailcode: [id number] | [place], [place] | | | | | [place], [place] | [address] | | | | | [address] | [phone] | | | | | [phone] | | | +--------+ + + + + Social History + + + +--------+ + | Tobacco Use | Types | Packs/Day | Years | Date | | | | | Used | | + + + +--------+ + | Former Smoker | Cigarettes | 3 | 20 | Quit: 11/20/1988 | + + + +--------+ + + + +---------+ + | Alcohol Use | Drinks/Week | oz/Week | Comments | + + +---------+ + | No | | | quit 18 years ago | + + +---------+ + + + + | Sex Assigned at [...] filedocumented as of this encounter Visit Diagnoses Not on filedocumented in this encounter"
--- OUTSIDE RECORDS SUMMARY | ~2019-01-13 | XMS | Encounter Summary ---
Demographics + + + | Address | [address] | | | [place] [address] | + + + | Home Phone | | + + + | Preferred Language | Unknown | + + + | Marital Status | | + + + | Latter-Day Affiliation | PRO | + + + | Race | White | + + + | Ethnic Group | Not or | + + + Author + + + | Author | [facility] | + + + | Organization | [facility] | + + + | Address | Unknown | + + + | Phone | Unavailable | + + + Support + + + + + | Name | Relationship | Address | Phone | + + + + + | Hector Mack | ECON | [address] | | | | | [place] | | | | | [address] | | + + + + + Care Team Providers + +------+ + | Care Staff Air Tactical Officer Name | Role | Phone | + +------+ + | Tuan Chan MD | PCP | | + +------+ + Encounter Details +--------+ + + + + | Date | Type | Department | Care Team | Description | +--------+ + + + + | 11/22/ | Orders Only | Cardiology - | Pranay Melendez MD | CAD (Coronary Artery | | 2005 | | General [address] | | Disease); | | | | [address] | | Dyslipidemia; | | | | Mailcode: IZC299 | | Dysmetabolic | | | | [facility] | | Syndrome X; Sleep | | | | [address] [place], | | Apnea; Gout; DM Circ | | | | [place] [address] | | Dis Type II, | | | | [phone] | | Uncontrolled (HCC) | +--------+ + + + + Social [...] Comments | + + +---------+ + | Yes | | | quit 18 years ago [...] as of this encounter Plan of Treatment + +------+--------+ + + | Name | Type | Priori | Associated Diagnoses | Order Schedule | | | | ty | | | + +------+--------+ + + | [facility] LAB COLLECT, | Lab | Routin | CAD (Coronary | Ordered: 11/22/2005 | | VENIPUNCTURE | | e | Artery Disease) | | + +------+--------+ + + documented as of this encounter Procedures + +--------+ + + + | Procedure Name | Priori | Date/Time | Associated Diagnosis | Comments | | | ty | | | | + +--------+ + + + | LIPID SET (TRIG, T | Routin | 11/22/2005 | CAD (Coronary | Results for this | | CHOL, HDL, CALC LDL) | e | 7:42 AM | Artery Disease) | procedure are in the | | | | PDT | Dyslipidemia | results section. | + +--------+ + + + documented in this encounter Results LIPID SET (11/22/2005 7:42 AM PDT) + + + + + + | Component | Value | Ref Range | Performed | Pathologist | | | | | At | Signature | + + + + + + | CHOLESTEROL | 159Comment: | <200 mg/dL | [facility] | | | (LAB) | Cholesterol Reference | | DEPARTMENT | | | | Range: | | OF | | | | Desirable: <200 | | PATHOLOGY | | | | Borderline | | | | | | High: 200 - 239 | | | | | | | | | | | | High: >=240 | | | | | | LDL Cholesterol | | | | | | Reference Range: | | | | | | | | | | | | Optimal: <100 | | | | | | Near Optimal: | | | | | | 100 - 129 | | | | | | Borderline High: | | | | | | 130 - 159 | | | | | | High: | | | | | | 160 - 189 | | | | | | Very High: | | | | | | >=190 | | | | + + + + + + | TRIGLYCERID | 76Comment: | <200 mg/dL | [facility] | | | ES | Triglyceride Reference | | DEPARTMENT | | | | Range: | | OF | | | | Normal: <150 | | PATHOLOGY | | | | Borderline | | | | | | High: 150 - 199 | | | | | | | | | | | | High: 200 - 499 | | | | | | | | | | | | Very High: >=500 | | | | + + + + + + | HDL | 42Comment: HDL | >40 mg/dL | [facility] | | | CHOLESTEROL | Reference Range: | | DEPARTMENT | | | | High | | OF | | | | Risk: <40 | | PATHOLOGY | | | | Desirable: | | | | | | >=60 | | | | + + + + + + | LDL | 102 | <130 mg/dL | [facility] | | | CHOLESTEROL | | | DEPARTMENT | | | , | | | OF | | | CALCULATED | | | PATHOLOGY | | + + + + + + | VLDL | 15 | <31 mg/dL | [facility] | | | CHOLESTEROL | | | DEPARTMENT | | | , | | | OF | | | CALCULATED | | | PATHOLOGY | | + + + + + + + + | Specimen | + + | | + + + + + + + | Performing | Address | City/State/Zipcode | Phone Number | | Organization | | | | + + + + + | [facility] | [address] | [place] [address] | | | PATHOLOGY | [address] | | | + + + + + | [facility] | [facility] | [place] [address] | | | PATHOLOGY | [address] | | | + + + + + documented in this encounter Visit Diagnoses + + | Diagnosis | + + | CAD (coronary artery disease) Coronary atherosclerosis of unspecified type of vessel, | | [place] or graft | + + | Dyslipidemia Other and unspecified hyperlipidemia | + + | Dysmetabolic syndrome X Dysmetabolic Syndrome X | + + | Sleep apnea Unspecified sleep apnea | + + | Gout Gout, unspecified | + + | Type II or unspecified type diabetes mellitus with peripheral circulatory disorders, | | uncontrolled(250.72) Type II or unspecified type diabetes mellitus with peripheral | | circulatory disorders, uncontrolled | + + documented in this encounter"
--- OUTSIDE RECORDS SUMMARY | ~2019-01-13 | XMS | Encounter Summary ---
Demographics + + + | Address | [address] | | | [place] [address] | + + + | Home Phone | | + + + | Preferred Language | Unknown | + + + | Marital Status | | + + + | Advent Affiliation | PRO | + + + | Race | White | + + + | Ethnic Group | Not or | + + + Author + + + | Author | [facility] | + + + | Organization | [facility] | + + + | Address | Unknown | + + + | Phone | Unavailable | + + + Support + + + + + | Name | Relationship | Address | Phone | + + + + + | Hector Mack | ECON | [address] | | | | | [place] | | | | | [address] | | + + + + + Care Team Providers + +------+ + | Care Book Cutter Name | Role | Phone | + [...] | [address] Mail[address]: [id number] | [address] [place], | | | | | [place], [place] | [place] [address] | | | | | [address] | [phone] | | | | | [phone] | | | +--------+ + + + [...]
--- OUTSIDE RECORDS SUMMARY | ~2019-01-13 | XMS | Encounter Summary ---
Demographics + + + | Address | [address] | | | [place] [address] | + + + | Home Phone | | + + + | Preferred Language | Unknown | + + + | Marital Status | | + + + | Hoahaoism Affiliation | PRO | + + + | Race | White | + + + | Ethnic Group | Not or | + + + Author + + + | Author | [facility] | + + + | Organization | [facility] | + + + [...] [place] | | | | | [address] | | + + + + + Care Team Providers + +------+ + | Care Shipping Clerk Crating Name | Role | Phone | + +------+ + | Tuan Chan MD | PCP | | + +------+ + Reason for Visit + + + | Reason | Comments | + + + | Pre-op evaluation | | + + + Encounter Details +--------+---------+ + + + | Date | Type | Department | Care Team | Description | +--------+---------+ + + + | 06/02/ | Office | Preoperative | [facility] [address] | Other Specified | | 2007 | Visit | Medicine Clinic at | [facility] | Pre-Operative | | | | [facility] 4th [address] | [place] [address] | Examination (Primary | | | | [address] | | Dx) | | | | Mailcode: CH4S | | | | | | [facility] | | | | | | and Healing, | | | | | | Building [address],4th Floor | | | | | | [place], [place] | | | | | | [address] | | | | | | [phone] | | | +--------+---------+ + + + [...] + + + | Blood Pressure | 90/57 | 06/03/2007 3:28 PM | | | | | PST | | + + + + + | Pulse | 55 | 06/03/2007 3:28 PM | | | | | PST | | + + + + + | Temperature | 36.2 C (97.2 F) | 06/03/2007 3:28 PM | | | | | PST | | + + + + + | Respiratory Rate | 14 | 06/03/2007 3:28 PM | | | | | PST | | + + + + + | Oxygen Saturation | 100% | 06/03/2007 3:28 PM | | | | | PST | | + + + + + | Inhaled Oxygen | - | - | | | Concentration | | | | + + + + + | Weight | 87.3 kg (192 lb 8 | 06/03/2007 3:28 PM | | | | oz) | PST | | + + + + + | Height | 162.6 cm (5' 4") | 06/03/2007 3:28 PM | | | | | PST | | + + + + + | Body Mass Index | 33.04 | 06/03/2007 3:28 PM | | | | | PST | | + + + + + documented in this encounter Progress Notes Darrell Hope RN - 06/03/2007 3:34 PM PSTSee Scanned H&P. documented in this en counter Plan of Treatment Not on filedocumented as of this encounter Procedures + +--------+ + + + | Procedure Name | Priori | Date/Time | Associated Diagnosis | Comments | | | ty | | | | + +--------+ + + + | BASIC METABOLIC SET | Routin | 06/03/2007 | Other Specified | Results for this | | (NA, K, CL, TCO2, | e | 3:50 PM | Pre-Operative | procedure are in the | | BUN, CR, GLU, CA) | | PST | Examination | results section. | + +--------+ + + + | CBC ONLY | Routin | 06/03/2007 | Other Specified | Results for this | | | e | 3:50 PM | Pre-Operative | procedure are in the | | | | PST | Examination | results section. | + +--------+ + + + | 12 LEAD ECG | Routin | 06/03/2007 | Other specified | Results for this | | | e | 3:43 PM | pre-operative | procedure are in the | | | | PST | examination | results section. | + +--------+ + + + documented in this encounter Results CBC ONLY (06/03/2007 3:50 PM PST) + + + + + + | Component | Value | Ref Range | Performed | Pathologist | | | | | At | Signature | + + + + + + | WHITE CELL | 7.7 | 4.4 - 11.0 K/cu | [facility] | | | COUNT | | mm | DEPARTMENT | | | | | | OF | | | | | | PATHOLOGY | | + + + + + + | RED CELL | 4.02 | 4.00 - 5.20 | [facility] | | | COUNT | | M/cu mm | DEPARTMENT | | | | | | OF | | | | | | PATHOLOGY | | + + + + + + | HEMOGLOBIN | 12.6 | 12.0 - 16.0 | [facility] | | | | | g/dL | DEPARTMENT | | | | | | OF | | | | | | PATHOLOGY | | + + + + + + | HEMATOCRIT | 35.5 (L) | 36.0 - 46.0 % | [facility] | | | | | | DEPARTMENT | | | | | | OF | | | | | | PATHOLOGY | | + + + + + + | MCV | 88.4 | 80.0 - 96.0 fL | [facility] | | | | | | DEPARTMENT | | | | | | OF | | | | | | PATHOLOGY | | + + + + + + | MCHC | 35.5 | 33.4 - 35.5 | [facility] | | | | | g/dL | DEPARTMENT | | | | | | OF | | | | | | PATHOLOGY | | + + + + + + | RDW | 13.6 | 11.5 - 15.0 % | [facility] | | | | | | DEPARTMENT | | | | | | OF | | | | | | PATHOLOGY | | + + + + + + | PLATELET | 259 | 150 - 400 K/cu | [facility] [...] | + + + + + | [facility] DEPARTMENT OF | [address] | [place] [address] | | | PATHOLOGY | [address] | | | + + + + + | [facility] DEPARTMENT OF | [address] | [place] [address] | | | PATHOLOGY | [address] | | | + + + + + BASIC METABOLIC SET, PLASMA (06/03/2007 3:50 PM PST) + +---------+ + + + | Component | Value | Ref Range | Performed | Pathologist | | | | | At | Signature | + +---------+ + + + | GLUCOSE, | 79 | 60 - 99 mg/dL | [facility] | | | PLASMA | | | DEPARTMENT | | | (LAB) | | | OF | | | | | | PATHOLOGY | | + +---------+ + + + | BUN, PLASMA | 25 (H) | 6 - 20 mg/dL | [facility] | | | (LAB) | | | DEPARTMENT | | | | | | OF | | | | | | PATHOLOGY | | + +---------+ + + + | CREATININE | 1.2 (H) | 0.6 - 1.1 mg/dL | [facility] | | | PLASMA | | | DEPARTMENT | | | (LAB) | | | OF | | | | | | PATHOLOGY | | + +---------+ + + + | SODIUM, | 142 | 136 - 145 | [facility] | | | PLASMA | | mmol/L | DEPARTMENT | | | (LAB) | | | OF | | | | | | PATHOLOGY | | + +---------+ + + + | POTASSIUM, | 3.8 | 3.5 - 5.1 | [facility] | | | PLASMA | | mmol/L | DEPARTMENT | | | (LAB) | | | OF | | | | | | PATHOLOGY | | + +---------+ + + + | CHLORIDE, | 104 | 98 - 107 mmol/L | [facility] | | | PLASMA | | | DEPARTMENT | | | (LAB) | | | OF | | | | | | PATHOLOGY | | + +---------+ + + + | TOTAL CO2, | 29 | 23 - 29 mmol/L | [facility] | | | PLASMA | | | DEPARTMENT | | | (LAB) | | | OF | | | | | | PATHOLOGY | | + +---------+ + + + | CALCIUM, | 8.8 | 8.5 - 10.5 | [facility] | | | PLASMA | | mg/dL | DEPARTMENT | | | (LAB) | | | OF | | | | | | PATHOLOGY | | + +---------+ + + + + + | Specimen | + + | Blood | + + + + + | Narrative | Performed At | + + + | [id number] Estimated GFR = 48 mL/min/1.73 sq m if non- | [facility] | | [id number] Estimated GFR = 59 mL/min/1.73 sq m if GFR | DEPARTMENT OF | | is estimated using the MDRD equation recommended by the National | PATHOLOGY | | Kidney Disease Education Program. Estimated GFR Interpretive | | | Information: <60 mL/min/1.73 sq m Chronic Kidney Disease <15 | | | mL/mon/1.73 sq m Kidney Failure Estimated GFR greater than | | | 60mL/min/1.73 is of limited clinical Value. The MDRD equation is | | | not valid in the following situations: - Patients under 18 years of | | | age - Severe malnutrition or obesity - Vegetarian diet - Rapidly | | | changing kidney function | | + + + + + + + + | Performing | Address | City/State/Zipcode | Phone Number | | Organization | | | | + + + + + | [facility] | [address] | [place] [address] | | | PATHOLOGY | [address] | | | + + + + + | [facility] DEPARTMENT | [address] | [place] [address] | | | PATHOLOGY | [address] | | | + + + + + 12 LEAD ECG (06/03/2007 3:43 PM PST) + + + + + + | Component | Value | Ref Range | Performed | Pathologist | | | | | At | Signature | + + + + + + | VENTRICULAR | 54 | BPM | [facility] | | | RATE | | | OF | | | | | | CARDIOLOGY | | + + + + + + | ATRIAL RATE | 54 | BPM | [facility] | | | | | | OF | | | | | | CARDIOLOGY | | + + + + + + | P-R | 142 | ms | [facility] | | | INTERVAL | | | OF | | | | | | CARDIOLOGY | | + + + + + + | QRS | 82 | ms | [facility] | | | DURATION | | | OF | | | | | | CARDIOLOGY | | + + + + + + | QT | 512 | ms | [facility] | | | | | | OF | | | | | | CARDIOLOGY | | + + + + + + | QTC | 485 | ms | [facility] | | | | | | OF | | | | | | CARDIOLOGY | | + + + + + + | P AXIS | 37 | degrees | [facility] | | | | | | OF | | | | | | CARDIOLOGY | | + + + + + + | R AXIS | -6 | degrees | [facility] | | | | | | OF | | | | | | CARDIOLOGY | | + + + + + + | T AXIS | 66 | degrees | [facility] | | | | | | OF | | | | | | CARDIOLOGY | | + + + + + + | EKG | Sinus | | [facility] | | | DIAGNOSIS | bradycardiaPossible | | OF | | | | Anterior infarct , age | | CARDIOLOGY | | | | undeterminedAbnormal | | | | | | ECG"I have personally | | | | | | interpreted this report, | | | | | | either alone or with a | | | | | | trainee."Confirmed by | | | | | | CARMENCITA GRANADO ([id number]) on | | | | | | 04-Jun-2007 12:42:36 | | | | + + + + + + | LINK TO | | | [facility] | | | [facility] | | | OF | | | (ECG | | | CARDIOLOGY | | | VIEWER) | | | | | + + + + + + + + | Specimen | + + | | + + + + + | Narrative | Performed At | + + + | Please click | [facility] OF | | on view image for the detailed interpretation from [employer] results. | CARDIOLOGY | | | | + + + + + + + + | Performing | Address | City/State/Zipcode | Phone Number | | Organization | | | | + + + + + | [facility] OF | [address] | [place], [place] | | | CARDIOLOGY | [address] | [address] | | + + + + + | [facility] OF | [address] | [place], [place] | | | CARDIOLOGY | [facility] [facility] | [address] | | + + + + + documented in this encounter Visit Diagnoses + + | Diagnosis | + + | Other specified pre-operative examination - Primary | + + documented in this encounter
--- OUTSIDE RECORDS SUMMARY | ~2019-01-13 | XMS | Encounter Summary ---
Demographics + + + | Address | [address] | | | [place] [address] | + + + | Home Phone | | + + + | Preferred Language | Unknown | + + + | Marital Status | | + + + | Tenriism Affiliation | PRO | + + + | Race | White | + + + | Ethnic Group | Not or | + + + Author + + + | Author | [facility] | + + + | Organization | [facility] | + + + | Address | Unknown | + + + | Phone | Unavailable | + + + Support + + + + + | Name | Relationship | Address | Phone | + + + + + | Hector Mack | ECON | [phone] | | | | | [place] | | | | | [phone] | | + + + + + Care Team Providers + +------+ + | Care Brass Burnisher Name | Role | Phone | + +------+ + | Tuan Chan MD | PCP | | + +------+ + Encounter Details +--------+ + + + + | Date | Type | Department | Care Team | Description | +--------+ + + + + | 03/11/ | Results | Urology Fertility | Renato Chow MD | | | 2010 | Only | [address] | [address] | | | | | Mailcode: CH10U | [place], [place] | | | | | [facility] | [address] | | | | | and Healing, | [phone] | | | | | | | | | | | Floor [place], [place] | | | | | | [address] | | | | | | [phone] | | | +--------+ + + + [...] + | CBC ONLY | Routin | 03/11/2011 | | Results for this | | | e | 5:24 PM | | procedure are in the | | | | PST | | results section. | + +--------+ + + + documented in this encounter Results CBC ONLY (03/11/2011 5:24 PM PST) + + + + + + | Component | Value | Ref Range | Performed | Pathologist | | | | | At | Signature | + + + + + + | WHITE CELL | Not Recd | 4.4 - 11.0 K/cu | [facility] | | | COUNT | | mm | DEPARTMENT | | | | | | OF | | | | | | PATHOLOGY | | + + + + + + | RED CELL | Not Recd | 4.00 - 5.20 | [facility] | | | COUNT | | M/cu mm | DEPARTMENT | | | | | | OF | | | | | | PATHOLOGY | | + + + + + + | HEMOGLOBIN | Not Recd | 12.0 - 16.0 | [facility] | | | | | g/dL | DEPARTMENT | | | | | | OF | | | | | | PATHOLOGY | | + + + + + + | HEMATOCRIT | Not Recd | 36.0 - 46.0 % | [facility] | | | | | | DEPARTMENT | | | | | | OF | | | | | | PATHOLOGY | | + + + + + + | MCV | Not Recd | 80.0 - 96.0 fL | [facility] | | | | | | DEPARTMENT | | | | | | OF | | | | | | PATHOLOGY | | + + + + + + | MCHC | Not Recd | 33.4 - 35.5 | [facility] | | | | | g/dL | DEPARTMENT | | | | | | OF | | | | | | PATHOLOGY | | + + + + + + | RDW | Not Recd | 11.5 - 15.0 % | [facility] | | | | | | DEPARTMENT | | | | | | OF | | | | | | PATHOLOGY | | + + + + + + | PLATELET | Not Recd | 150 - 400 K/cu | [facility] [...] | + + + + + | [facility] | [address] | [place] [address] | | | PATHOLOGY | [address] | | | + + + + + documented in this encounter Visit Diagnoses Not on filedocumented in this encounter"
--- OUTSIDE RECORDS SUMMARY | ~2019-01-13 | XMS | Encounter Summary ---
Demographics + + + | [address] | [address] | | | [place] [address] | + + + | Home Phone | | + + + | Preferred Language | Unknown | + + + | Marital Status | | + + + | Muslim Affiliation | PRO | + + + [...] [place] | | | | | [address] | | + + + + + Care Team Providers + +------+ + | Care Analysis Analyst Name | Role | Phone | + +------+ + | Tuan Chan MD | PCP | | + +------+ + Encounter Details +--------+ + + + + | Date | Type | Department | Care Team | Description | +--------+ + + + + | 06/26/ | Procedure - | | Endoscopy, Gi | EGD | | 2005 | | | | (esophagogastroduode | | | Transcribed | | | noscopy) | +--------+ + + + + Social [...] | + +--------+ + + + | EGD | | 06/26/2005 | | | + +--------+ + + + documented in this encounter Visit Diagnoses Not on filedocumented in this encounter"
--- OUTSIDE RECORDS SUMMARY | ~2019-01-13 | XMS | Encounter Summary ---
Demographics + + + | Address | [id number] | | | [place] [address] | + + + | Home Phone | | + + + | Preferred Language | Unknown | + + + | Marital Status | | + + + | Pentecostalism Affiliation | PRO | + + + | Race | White | + + + | Ethnic Group | Not or | + + + Author + + + | Author | [facility] | + + + | Organization | [facility] | + + + | Address | Unknown | + + + | Phone | Unavailable | + + + Support + + + + + | Name | Relationship | Address | Phone | + + + + + | Hector Mack | ECON | [address] | | | | | [place] | | | | | [address] | | + + + + + Care Team Providers + +------+ + | Care Plant Breeder Scientist Name | Role | Phone | + +------+ + | Tuan Chan MD | PCP | | + +------+ + Encounter Details +--------+ + + + + | Date | Type | Department | Care Team | Description | +--------+ + + + + | 02/05/ | Hospital | Registration [address] | [place], | | | 2005 | Activity | [address] Powell MD | | | | | Rd Mailcode: [id number] | | | | | | [place], [place] | | | | | | [address] | | | | | | [phone] | | | +--------+ + + + [...] of this encounter Plan of Treatment + +---------+--------+ + + | Name | Type | Priori | Associated Diagnoses | Date/Time | | | | ty | | | + +---------+--------+ + + | RAMA SNYDER W | Imaging | Routin | | 02/06/2006 8:27 AM | | SMALL BOWEL | | e | | PST | + +---------+--------+ + + documented as of this encounter Procedures + +--------+ + + + | Procedure Name | Priori | Date/Time | Associated Diagnosis | Comments | | | ty | | | | + +--------+ + + + | BASIC METABOLIC SET | Routin | 02/09/2006 | | Results for this | | (NA, K, CL, TCO2, | e | 3:30 AM | | procedure are in the | | BUN, CR, GLU, CA) | | PST | | results section. | + +--------+ + + + | CBC ONLY | Routin | 02/09/2006 | | Results for this | | | e | 3:30 AM | | procedure are in the | | | | PST | | results section. | + +--------+ + + + | PHOSPHORUS, PLASMA | Routin | 02/09/2006 | | Results for this | | | e | 3:30 AM | | procedure are in the | | | | PST | | results section. | + +--------+ + + + | MAGNESIUM, PLASMA | Routin | 02/09/2006 | | Results for this | | | e | 3:30 AM | | procedure are in the | | | | PST | | results section. | + +--------+ + + + | BASIC METABOLIC SET | Routin | 02/08/2006 | | Results for this | | (NA, K, CL, TCO2, | e | 6:43 AM | | procedure are in the | | BUN, CR, GLU, CA) | | PST | | results section. | + +--------+ + + + | CBC ONLY | Routin | 02/08/2006 | | Results for this | | | e | 6:43 AM | | procedure are in the | | | | PST | | results section. | + +--------+ + + + | PHOSPHORUS, PLASMA | Routin | 02/08/2006 | | Results for this | | | e | 6:43 AM | | procedure are in the | | | | PST | | results section. | + +--------+ + + + | MAGNESIUM, PLASMA | Routin | 02/08/2006 | | Results for this | | | e | 6:43 AM | | procedure are in the | | | | PST | | results section. | + +--------+ + + + | BASIC METABOLIC SET | Routin | 02/08/2006 | | Results for this | | (NA, K, CL, TCO2, | e | 4:30 AM | | procedure are in the | | BUN, CR, GLU, CA) | | PST | | results section. | + +--------+ + + + | CBC ONLY | Routin | 02/08/2006 | | Results for this | | | e | 4:30 AM | | procedure are in the | | | | PST | | results section. | + +--------+ + + + | PHOSPHORUS, PLASMA | Routin | 02/08/2006 | | Results for this | | | e | 4:30 AM | | procedure are in the | | | | PST | | results section. | + +--------+ + + + | MAGNESIUM, PLASMA | Routin | 02/08/2006 | | Results for this | | | e | 4:30 AM | | procedure are in the | | | | PST | | results section. | + +--------+ + + + | BASIC METABOLIC SET | Routin | 02/07/2006 | | Results for this | | (NA, K, CL, TCO2, | e | 6:01 AM | | procedure are in the | | BUN, CR, GLU, CA) | | PST | | results section. | + +--------+ + + + | CBC ONLY | Routin | 02/07/2006 | | Results for this | | | e | 6:01 AM | | procedure are in the | | | | PST | | results section. | + +--------+ + + + | PHOSPHORUS, PLASMA | Routin | 02/07/2006 | | Results for this | | | e | 6:01 AM | | procedure are in the | | | | PST | | results section. | + +--------+ + + + | MAGNESIUM, PLASMA | Routin | 02/07/2006 | | Results for this | | | e | 6:01 AM | | procedure are in the | | | | PST | | results section. | + +--------+ + + + | BASIC METABOLIC SET | Routin | 02/07/2006 | | Results for this | | (NA, K, CL, TCO2, | e | 4:30 AM | | procedure are in the | | BUN, CR, GLU, CA) | | PST | | results section. | + +--------+ + + + | CBC ONLY | Routin | 02/07/2006 | | Results for this | | | e | 4:30 AM | | procedure are in the | | | | PST | | results section. | + +--------+ + + + | PHOSPHORUS, PLASMA | Routin | 02/07/2006 | | Results for this | | | e | 4:30 AM | | procedure are in the | | | | PST | | results section. | + +--------+ + + + | MAGNESIUM, PLASMA | Routin | 02/07/2006 | | Results for this | | | e | 4:30 AM | | procedure are in the | | | | PST | | results section. | + +--------+ + + + | X-RAY ESOPHAGRAM | Routin | 02/06/2006 | | Results for this | | | e | 4:19 PM | | procedure are in the | | | | PST | | results section. | + +--------+ + + + | DIFFERENTIAL | Routin | 02/06/2006 | | Results for this | | | e | 6:45 AM | | procedure are in the | | | | PST | | results section. | + +--------+ + + + | CBC, WITH | Routin | 02/06/2006 | | Results for this | | DIFFERENTIAL | e | 6:45 AM | | procedure are in the | | | | PST | | results section. | + +--------+ + + + | BASIC METABOLIC SET | Routin | 02/06/2006 | | Results for this | | (NA, K, CL, TCO2, | e | 6:45 AM | | procedure are in the | | BUN, CR, GLU, CA) | | PST | | results section. | + +--------+ + + + | PHOSPHORUS, PLASMA | Routin | 02/06/2006 | | Results for this | | | e | 6:45 AM | | procedure are in the | | | | PST | | results section. | + +--------+ + + + | MAGNESIUM, PLASMA | Routin | 02/06/2006 | | Results for this | | | e | 6:45 AM | | procedure are in the | | | | PST | | results section. | + +--------+ + + + | BASIC METABOLIC SET | Routin | 02/06/2006 | | Results for this | | (NA, K, CL, TCO2, | e | 6:01 AM | | procedure are in the | | BUN, CR, GLU, CA) | | PST | | results section. | + +--------+ + + + | CBC ONLY | Routin | 02/06/2006 | | Results for this | | | e | 6:01 AM | | procedure are in the | | | | PST | | results section. | + +--------+ + + + | PHOSPHORUS, PLASMA | Routin | 02/06/2006 | | Results for this | | | e | 6:01 AM | | procedure are in the | | | | PST | | results section. | + +--------+ + + + | MAGNESIUM, PLASMA | Routin | 02/06/2006 | | Results for this | | | e | 6:01 AM | | procedure are in the | | | | PST | | results section. | + +--------+ + + + | X-RAY CHEST 1 VIEW | Urgent | 02/05/2006 | | Results for this | | | | 3:04 PM | | procedure are in the | | | | PST | | results section. | + +--------+ + + + | HEMOGLOBIN A1C, | Routin | 02/05/2006 | | Results for this | | BLOOD | e | 6:15 AM | | procedure are in the | | | | PST | | results section. | + +--------+ + + + documented in this encounter Results PHOSPHORUS, PLASMA (02/09/2006 3:30 AM PST) + +-------+ + + + | Component | Value | Ref Range | Performed | Pathologist | | | | | At | Signature | + +-------+ + + + | PHOSPHORUS, | 2.8 | 2.4 - 4.7 mg/dL | [facility] | | | PLASMA [...] | + + + + + | [facility] DEPARTMENT OF | [address] | [place] [address] | | | PATHOLOGY | [address] | | | + + + + + | [facility] DEPARTMENT OF | [address] | [place] [address] | | | PATHOLOGY | [address] | | | + + + + + MAGNESIUM, PLASMA (02/09/2006 3:30 AM PST) + +-------+ + + + | Component | Value | Ref Range | Performed | Pathologist | | | | | At | Signature | + +-------+ + + + | MAGNESIUM,P | 1.9 | 1.8 - 2.5 mg/dL | [facility] | | | LASMA | | | DEPARTMENT | | | [...] + + + + + | [facility] | [address] [place] [address] | [place] [address] | | | PATHOLOGY | [address] | | | + + + + + | [facility] DEPARTMENT | [address] [place] [address] | [place] [address] | | | PATHOLOGY | [address] | | | + + + + + CBC ONLY WITH PLATELET (02/09/2006 3:30 AM PST) + + + + + + | Component | Value | Ref Range | Performed | Pathologist | | | | | At | Signature | + + + + + + | WHITE CELL | 7.3 | 4.4 - 11.0 K/cu | [facility] | | | COUNT | | mm | DEPARTMENT | | | | | | OF | | | | | | PATHOLOGY | | + + + + + + | RED CELL | 3.44 (L) | 4.00 - 5.20 | [facility] | | | COUNT | | M/cu mm | DEPARTMENT | | | | | | OF | | | | | | PATHOLOGY | | + + + + + + | HEMOGLOBIN | 10.8 (L) | 12.0 - 16.0 | [facility] | | | | | g/dL | DEPARTMENT | | | | | | OF | | | | | | PATHOLOGY | | + + + + + + | HEMATOCRIT | 31.2 (L) | 36.0 - 46.0 % | [facility] | | | | | | DEPARTMENT | | | | | | OF | | | | | | PATHOLOGY | | + + + + + + | MCV | 90.6 | 80.0 - 96.0 fL | [facility] | | | | | | DEPARTMENT | | | | | | OF | | | | | | PATHOLOGY | | + + + + + + | MCHC | 34.5 | 33.4 - 35.5 | [facility] | | | | | g/dL | DEPARTMENT | | | | | | OF | | | | | | PATHOLOGY | | + + + + + + | RDW | 13.8 | 11.5 - 15.0 % | [facility] | | | | | | DEPARTMENT | | | | | | OF | | | | | | PATHOLOGY | | + + + + + + | PLATELET | 157 | 150 - 400 K/cu | [facility] [...] | + + + + + | [facility] DEPARTMENT OF | [address] | [place] [address] | | | PATHOLOGY | [address] | | | + + + + + | [facility] DEPARTMENT OF | [address] | [place] [address] | | | PATHOLOGY | [address] | | | + + + + + BASIC METABOLIC SET (02/09/2006 3:30 AM PST) + +---------+ + + + | Component | Value | Ref Range | Performed | Pathologist | | | | | At | Signature | + +---------+ + + + | GLUCOSE, | 98 | 65 - 110 mg/dL | [facility] | | | PLASMA | | | DEPARTMENT | | | (LAB) | | | OF | | | | | | PATHOLOGY | | + +---------+ + + + | BUN, PLASMA | 6 | 6 - 20 mg/dL | [facility] | | | (LAB) | | | DEPARTMENT | | | | | | OF | | | | | | PATHOLOGY | | + +---------+ + + + | CREATININE | 0.7 | 0.6 - 1.1 mg/dL | [facility] | | | PLASMA | | | DEPARTMENT | | | (LAB) | | | OF | | | | | | PATHOLOGY | | + +---------+ + + + | SODIUM, | 137 | 136 - 145 | [facility] | [...] +---------+ + + + | CHLORIDE, | 100 | 98 - 107 mmol/L | [facility] | | | PLASMA | | | DEPARTMENT | | | (LAB) | | | OF | | | | | | PATHOLOGY | | + +---------+ + + + | TOTAL CO2, | 31 (H) | 23 - 29 mmol/L | [facility] | | | PLASMA | | | DEPARTMENT | | | (LAB) | | | OF | | | | | | PATHOLOGY | | + +---------+ + + + | CALCIUM, | 8.0 (L) | 8.5 - 10.5 | [facility] | [...] DEPARTMENT OF | [address] | [place] [address] | | | PATHOLOGY | [address] | | | + + + + + | [facility] DEPARTMENT | [address] | [place] [address] | | | PATHOLOGY | [address] | | | + + + + + PHOSPHORUS, PLASMA (02/08/2006 6:43 AM PST) + +-------+ + + + | Component | Value | Ref Range | Performed | Pathologist | | | | | At | Signature | + +-------+ + + + | PHOSPHORUS, | 2.8 | 2.4 - 4.7 mg/dL | [facility] | | | PLASMA | | | [...] | + + + + + | [facility] DEPARTMENT OF | [address] | [place] [address] | | | PATHOLOGY | [address] | | | + + + + + | [facility] DEPARTMENT OF | [address] | [place] [address] | | | PATHOLOGY | [address] | | | + + + + + MAGNESIUM, PLASMA (02/08/2006 6:43 AM PST) + +-------+ + + + | Component | Value | Ref Range | Performed | Pathologist | | | | | At | Signature | + +-------+ + + + | MAGNESIUM,P | 1.9 | 1.8 - 2.5 mg/dL | [facility] | | | LASMA | | | DEPARTMENT | | | [...] DEPARTMENT OF | [address] | [place] [address] | | | PATHOLOGY | [address] | | | + + + + + | [facility] DEPARTMENT OF | [address] | [place] [address] | | | PATHOLOGY | [address] | | | + + + + + BASIC METABOLIC SET (02/08/2006 6:43 AM PST) + +---------+ + + + | Component | Value | Ref Range | Performed | Pathologist | | | | | At | Signature | + +---------+ + + + | GLUCOSE, | 102 | 65 - 110 mg/dL | [facility] | | | PLASMA | | | DEPARTMENT | | | (LAB) | | | OF | | | | | | PATHOLOGY | | + +---------+ + + + | BUN, PLASMA | 5 (L) | 6 - 20 mg/dL | [facility] | | | (LAB) | | | DEPARTMENT | | | | | | OF | | | | | | PATHOLOGY | | + +---------+ + + + | CREATININE | 0.7 | 0.6 - 1.1 mg/dL | [facility] | | | PLASMA | | | DEPARTMENT | | | (LAB) | | | OF | | | | | | PATHOLOGY | | + +---------+ + + + | SODIUM, | 137 | 136 - 145 | [facility] | | | PLASMA | | mmol/L | DEPARTMENT | | | (LAB) | | | OF | | | | | | PATHOLOGY | | + +---------+ + + + | POTASSIUM, | 3.7 | 3.5 - 5.1 | [facility] | | | PLASMA | | mmol/L | DEPARTMENT | | | (LAB) | | | OF | | | | | | PATHOLOGY | | + +---------+ + + + | CHLORIDE, | 101 | 98 - 107 mmol/L | [facility] | | | PLASMA | | | DEPARTMENT | | | (LAB) | | | OF | | | | | | PATHOLOGY | | + +---------+ + + + | TOTAL CO2, | 30 (H) | 23 - 29 mmol/L | [facility] | | | PLASMA | | | DEPARTMENT | | | (LAB) | | | OF | | | | | | PATHOLOGY | | + +---------+ + + + | CALCIUM, | 7.8 (L) | 8.5 - 10.5 | [facility] | [...] | + + + + + | [facility] DEPARTMENT OF | [address] | [place] [address] | | | PATHOLOGY | [address] | | | + + + + + | [facility] DEPARTMENT OF | [address] | [place] [address] | | | PATHOLOGY | [address] | | | + + + + + CBC ONLY WITH PLATELET (02/08/2006 6:43 AM PST) + + + + + + | Component | Value | Ref Range | Performed | Pathologist | | | | | At | Signature | + + + + + + | WHITE CELL | 10.0 | 4.4 - 11.0 K/cu | [facility] | | | COUNT | | mm | DEPARTMENT | | | | | | OF | | | | | | PATHOLOGY | | + + + + + + | RED CELL | 3.63 (L) | 4.00 - 5.20 | [facility] | | | COUNT | | M/cu mm | DEPARTMENT | | | | | | OF | | | | | | PATHOLOGY | | + + + + + + | HEMOGLOBIN | 11.1 (L) | 12.0 - 16.0 | [facility] | | | | | g/dL | DEPARTMENT | | | | | | OF | | | | | | PATHOLOGY | | + + + + + + | HEMATOCRIT | 32.5 (L) | 36.0 - 46.0 % | [facility] | | | | | | DEPARTMENT | | | | | | OF | | | | | | PATHOLOGY | | + + + + + + | MCV | 89.7 | 80.0 - 96.0 fL | [facility] | | | | | | DEPARTMENT | | | | | | OF | | | | | | PATHOLOGY | | + + + + + + | MCHC | 34.1 | 33.4 - 35.5 | [facility] | | | | | g/dL | DEPARTMENT | | | | | | OF | | | | | | PATHOLOGY | | + + + + + + | RDW | 13.7 | 11.5 - 15.0 % | [facility] | | | | | | DEPARTMENT | | | | | | OF | | | | | | PATHOLOGY | | + + + + + + | PLATELET | 153 | 150 - 400 K/cu | [facility] [...] + + + + + | [facility] | [address] | [place] [address] | | | PATHOLOGY | [address] | | | + + + + + | [facility] | [address] | [place] [address] | | | PATHOLOGY | [address] | | | + + + + + PHOSPHORUS, PLASMA (02/08/2006 4:30 AM PST) + +-------+ + + + | Component | Value | Ref Range | Performed | Pathologist | | | | | At | Signature | + +-------+ + + + | PHOSPHORUS, | 2.7 | 2.4 - 4.7 mg/dL | [facility] | | | PLASMA | | | [...] | + + + + + | [facility] DEPARTMENT OF | [address] | [place] [address] | | | PATHOLOGY | [address] | | | + + + + + | [facility] DEPARTMENT OF | [address] | [place] [address] | | | PATHOLOGY | [address] | | | + + + + + MAGNESIUM, PLASMA (02/08/2006 4:30 AM PST) + +-------+ + + + | Component | Value | Ref Range | Performed | Pathologist | | | | | At | Signature | + +-------+ + + + | MAGNESIUM,P | 2.0 | 1.8 - 2.5 mg/dL | [facility] | | | LASMA | | | DEPARTMENT | | | [...] + + + + + | [facility] | [address] | [place] [address] | | | PATHOLOGY | [address] | | | + + + + + | [facility] | [address] | [place] [address] | | | PATHOLOGY | [address] | | | + + + + + CBC ONLY WITH PLATELET (02/08/2006 4:30 AM PST) + + + + + [...] + + + | RED CELL | 3.51 (L) | 4.00 - 5.20 | [facility] | | | COUNT | | M/cu mm | DEPARTMENT | | | | | | OF | | | | | | PATHOLOGY | | + + + + + + | HEMOGLOBIN | 11.0 (L) | 12.0 - 16.0 | [facility] | | | | | g/dL | DEPARTMENT | | | | | | OF | | | | | | PATHOLOGY | | + + + + + + | HEMATOCRIT | 32.0 (L) | 36.0 - 46.0 % | [facility] | | | | | | DEPARTMENT | | | | | | OF | | | | | | PATHOLOGY | | + + + + + + | MCV | 91.2 | 80.0 - 96.0 fL | [facility] | | | | | | DEPARTMENT | | | | | | OF | | | | | | PATHOLOGY | | + + + + + + | MCHC | 34.3 | 33.4 - 35.5 | [facility] | | | | | g/dL | DEPARTMENT | | | | | | OF | | | | | | PATHOLOGY | | + + + + + + | RDW | 13.5 | 11.5 - 15.0 % | [facility] | | | | | | DEPARTMENT | | | | | | OF | | | | | | PATHOLOGY | | + + + + + + | PLATELET | 139 (L) | 150 - 400 K/cu | [facility] [...] + + + + + | [facility] | [address] | [place] [address] | | | PATHOLOGY | [address] | | | + + + + + | [facility] | [address] [place] [address] | [place] [address] | | | PATHOLOGY | [address] | | | + + + + + BASIC METABOLIC SET (02/08/2006 4:30 AM PST) + +---------+ + + + | Component | Value | Ref Range | Performed | Pathologist | | | | | At | Signature | + +---------+ + + + | GLUCOSE, | 100 | 65 - 110 mg/dL | [facility] | | | PLASMA | | | DEPARTMENT | | | (LAB) | | | OF | | | | | | PATHOLOGY | | + +---------+ + + + | BUN, PLASMA | 4 (L) | 6 - 20 mg/dL | [facility] | | | (LAB) | | | DEPARTMENT | | | | | | OF | | | | | | PATHOLOGY | | + +---------+ + + + | CREATININE | 0.7 | 0.6 - 1.1 mg/dL | [facility] | | | PLASMA | | | DEPARTMENT | | | (LAB) | | | OF | | | | | | PATHOLOGY | | + +---------+ + + + | SODIUM, | 137 | 136 - 145 | [facility] | | | PLASMA | | mmol/L | DEPARTMENT | | | (LAB) | | | OF | | | | | | PATHOLOGY | | + +---------+ + + + | POTASSIUM, | 3.6 | 3.5 - 5.1 | [facility] | | | PLASMA | | mmol/L | DEPARTMENT | | | (LAB) | | | OF | | | | | | PATHOLOGY | | + +---------+ + + + | CHLORIDE, | 99 | 98 - 107 mmol/L | [facility] [...] +---------+ + + + | CALCIUM, | 7.9 (L) | 8.5 - 10.5 | [facility] | [...] | + + + + + | [facility] DEPARTMENT OF | [address] | [place] [address] | | | PATHOLOGY | [address] | | | + + + + + | [facility] DEPARTMENT OF | [address] | [place] [address] | | | PATHOLOGY | [address] | | | + + + + + MAGNESIUM, PLASMA (02/07/2006 6:01 AM PST) + + + + + + | Component | Value | Ref Range | Performed | Pathologist | | | | | At | Signature | + + + + + + | MAGNESIUM,P | See cmnt | 1.8 - 2.5 mg/dL | [facility] | | | LASMA | | | DEPARTMENT | | | | | | OF | | | | | | PATHOLOGY | | + + + + + + + + | Specimen | + + | | + + + + + | Narrative | Performed At | + + + | Staff or dialysis draw required. | [facility] | | | DEPARTMENT OF | | | PATHOLOGY | + + + + + + + + | Performing | Address | City/State/Zipcode | Phone Number | | Organization | | | | + + + + + | [facility] | [address] | [place] [address] | | | PATHOLOGY | [address] | | | + + + + + | [facility] | [address] [place] [address] [address] | [place] [address] | | | PATHOLOGY | [address] | | | + + + + + PHOSPHORUS, PLASMA (02/07/2006 6:01 AM PST) + + + + + + | Component | Value | Ref Range | Performed | Pathologist | | | | | At | Signature | + + + + + + | PHOSPHORUS, | See cmnt | 2.4 - 4.7 mg/dL | [facility] | | | PLASMA | | | DEPARTMENT | | | (LAB) | | | OF | | | | | | PATHOLOGY | | + + + + + + + + | Specimen | + + | | + + + + + | Narrative | Performed At | + + + | Staff or dialysis draw required. | [facility] | | | DEPARTMENT OF | | | PATHOLOGY | + + + + + + + + | Performing | Address | City/State/Zipcode | Phone Number | | Organization | | | | + + + + + | [facility] | [address] | [place] [address] | | | PATHOLOGY | [address] | | | + + + + + | [facility] | [address] | [place] [address] | | | PATHOLOGY | [address] | | | + + + + + CBC ONLY WITH PLATELET (02/07/2006 6:01 AM PST) + + + + + + | Component | Value | Ref Range | Performed | Pathologist | | | | | At | Signature | + + + + + + | WHITE CELL | See cmnt | 4.4 - 11.0 K/cu | [facility] | | | COUNT | | mm | DEPARTMENT | | | | | | OF | | | | | | PATHOLOGY | | + + + + + + | RED CELL | See cmnt | 4.00 - 5.20 | [facility] | | | COUNT | | M/cu mm | DEPARTMENT | | | | | | OF | | | | | | PATHOLOGY | | + + + + + + | HEMOGLOBIN | See cmnt | 12.0 - 16.0 | [facility] | | | | | g/dL | DEPARTMENT | | | | | | OF | | | | | | PATHOLOGY | | + + + + + + | HEMATOCRIT | See cmnt | 36.0 - 46.0 % | [facility] | | | | | | DEPARTMENT | | | | | | OF | | | | | | PATHOLOGY | | + + + + + + | MCV | See cmnt | 80.0 - 96.0 fL | [facility] | | | | | | DEPARTMENT | | | | | | OF | | | | | | PATHOLOGY | | + + + + + + | MCHC | See cmnt | 33.4 - 35.5 | [facility] | | | | | g/dL | DEPARTMENT | | | | | | OF | | | | | | PATHOLOGY | | + + + + + + | RDW | See cmnt | 11.5 - 15.0 % | [facility] | | | | | | DEPARTMENT | | | | | | OF | | | | | | PATHOLOGY | | + + + + + + | PLATELET | See cmnt | 150 - 400 K/cu | [facility] | | | COUNT | | mm | DEPARTMENT | | | | | | OF | | | | | | PATHOLOGY | | + + + + + + + + | Specimen | + + | | + + + + + | Narrative | Performed At | + + + | Staff or dialysis draw required. | [facility] | | | DEPARTMENT OF | | | PATHOLOGY | + + + + + + + + | Performing | Address | City/State/Zipcode | Phone Number | | Organization | | | | + + + + + | [facility] DEPARTMENT OF | [address] | [place] [address] | | | PATHOLOGY | [address] | | | + + + + + | [facility] DEPARTMENT | [address] | [place] [address] | | | PATHOLOGY | [address] | | | + + + + + BASIC METABOLIC SET (02/07/2006 6:01 AM PST) + + + + + + | Component | Value | Ref Range | Performed | Pathologist | | | | | At | Signature | + + + + + + | GLUCOSE, | See cmnt | 65 - 110 mg/dL | [facility] | | | PLASMA | | | DEPARTMENT | | | (LAB) | | | OF | | | | | | PATHOLOGY | | + + + + + + | BUN, PLASMA | See cmnt | 6 - 20 mg/dL | [facility] | | | (LAB) | | | DEPARTMENT | | | | | | OF | | | | | | PATHOLOGY | | + + + + + + | CREATININE | See cmnt | 0.6 - 1.1 mg/dL | [facility] | | | PLASMA | | | DEPARTMENT | | | (LAB) | | | OF | | | | | | PATHOLOGY | | + + + + + + | SODIUM, | See cmnt | 136 - 145 | [facility] | | | PLASMA | | mmol/L | DEPARTMENT | | | (LAB) | | | OF | | | | | | PATHOLOGY | | + + + + + + | POTASSIUM, | See cmnt | 3.5 - 5.1 | [facility] | | | PLASMA | | mmol/L | DEPARTMENT | | | (LAB) | | | OF | | | | | | PATHOLOGY | | + + + + + + | CHLORIDE, | See cmnt | 98 - 107 mmol/L | [facility] | | | PLASMA | | | DEPARTMENT | | | (LAB) | | | OF | | | | | | PATHOLOGY | | + + + + + + | TOTAL CO2, | See cmnt | 23 - 29 mmol/L | [facility] | | | PLASMA | | | DEPARTMENT | | | (LAB) | | | OF | | | | | | PATHOLOGY | | + + + + + + | CALCIUM, | See cmnt | 8.5 - 10.5 | [facility] | | | PLASMA | | mg/dL | DEPARTMENT | | | (LAB) | | | OF | | | | | | PATHOLOGY | | + + + + + + | POTASSIUM | See cmnt | | [facility] | | | CMNT | | | DEPARTMENT | | | | | | OF | | | | | | PATHOLOGY | | + + + + + + + + | Specimen | + + | | + + + + + | Narrative | Performed At | + + + | Staff or dialysis draw required. | [facility] | | | DEPARTMENT OF | | | PATHOLOGY | + + + + + + + + | Performing | Address | City/State/Zipcode | Phone Number | | Organization | | | | + + + + + | [facility] DEPARTMENT OF | [address] | [place] [address] | | | PATHOLOGY | [address] | | | + + + + + | [facility] DEPARTMENT OF | [address] | [place] [address] | | | PATHOLOGY | [address] | | | + + + + + PHOSPHORUS, PLASMA (02/07/2006 4:30 AM PST) + +-------+ + + + | Component | Value | Ref Range | Performed | Pathologist | | | | | At | Signature | + +-------+ + + + | PHOSPHORUS, | 3.4 | 2.4 - 4.7 mg/dL | [facility] | | | PLASMA [...] + + + + + | [facility] | [address] | [place] [address] | | | PATHOLOGY | [address] | | | + + + + + | [facility] | [address] | [place] [address] | | | PATHOLOGY | [address] | | | + + + + + MAGNESIUM, PLASMA (02/07/2006 4:30 AM PST) + +-------+ + + + | Component | Value | Ref Range | Performed | Pathologist | | | | | At | Signature | + +-------+ + + + | MAGNESIUM,P | 1.9 | 1.8 - 2.5 mg/dL | [facility] | | | LASMA | | | DEPARTMENT | | | | | | OF | | | | | | PATHOLOGY | | + +-------+ + + + + + | Specimen | + + | | + + + + + + + | Performing | Address | City/State/Zipcode | Phone Number | | Organization | | | | + + + + + | [facility] DEPARTMENT OF | [address] | [place] [address] | | | PATHOLOGY | [address] | | | + + + + + | [facility] DEPARTMENT OF | [address] | [place] [address] | | | PATHOLOGY | [address] | | | + + + + + CBC ONLY WITH PLATELET (02/07/2006 4:30 AM PST) + + + + + + | Component | Value | Ref Range | Performed | Pathologist | | | | | At | Signature | + + + + + + | WHITE CELL | 10.2 | 4.4 - 11.0 K/cu | [facility] | | | COUNT | | mm | DEPARTMENT | | | | | | OF | | | | | | PATHOLOGY | | + + + + + + | RED CELL | 3.57 (L) | 4.00 - 5.20 | [facility] | | | COUNT | | M/cu mm | DEPARTMENT | | | | | | OF | | | | | | PATHOLOGY | | + + + + + + | HEMOGLOBIN | 11.2 (L) | 12.0 - 16.0 | [facility] | | | | | g/dL | DEPARTMENT | | | | | | OF | | | | | | PATHOLOGY | | + + + + + + | HEMATOCRIT | 32.3 (L) | 36.0 - 46.0 % | [facility] | | | | | | DEPARTMENT | | | | | | OF | | | | | | PATHOLOGY | | + + + + + + | MCV | 90.3 | 80.0 - 96.0 fL | [facility] | | | | | | DEPARTMENT | | | | | | OF | | | | | | PATHOLOGY | | + + + + + + | MCHC | 34.6 | 33.4 - 35.5 | [facility] | | | | | g/dL | DEPARTMENT | | | | | | OF | | | | | | PATHOLOGY | | + + + + + + | RDW | 13.7 | 11.5 - 15.0 % | [facility] | | | | | | DEPARTMENT | | | | | | OF | | | | | | PATHOLOGY | | + + + + + + | PLATELET | 134 (L) | 150 - 400 K/cu | [facility] [...] DEPARTMENT OF | [address] | [place] [address] | | | PATHOLOGY | [address] | | | + + + + + | [facility] DEPARTMENT OF | [address] | [place] [address] | | | PATHOLOGY | [address] | | | + + + + + BASIC METABOLIC SET (02/07/2006 4:30 AM PST) + +---------+ + + + | Component | Value | Ref Range | Performed | Pathologist | | | | | At | Signature | + +---------+ + + + | GLUCOSE, | 102 | 65 - 110 mg/dL | [facility] | | | PLASMA | | | DEPARTMENT | | | (LAB) | | | OF | | | | | | PATHOLOGY | | + +---------+ + + + | BUN, PLASMA | 6 | 6 - 20 mg/dL | [facility] | | | (LAB) | | | DEPARTMENT | | | | | | OF | | | | | | PATHOLOGY | | + +---------+ + + + | CREATININE | 0.9 | 0.6 - 1.1 mg/dL | [facility] | | | PLASMA | | | DEPARTMENT | | | (LAB) | | | OF | | | | | | PATHOLOGY | | + +---------+ + + + | SODIUM, | 141 | 136 - 145 | [facility] | | | PLASMA | | mmol/L | DEPARTMENT | | | (LAB) | | | OF | | | | | | PATHOLOGY | | + +---------+ + + + | POTASSIUM, | 3.7 | 3.5 - 5.1 | [facility] | | | PLASMA | | mmol/L | DEPARTMENT | | | (LAB) | | | OF | | | | | | PATHOLOGY | | + +---------+ + + + | CHLORIDE, | 105 | 98 - 107 mmol/L | [facility] | | | PLASMA | | | DEPARTMENT | | | (LAB) | | | OF | | | | | | PATHOLOGY | | + +---------+ + + + | TOTAL CO2, | 30 (H) | 23 - 29 mmol/L | [facility] | | | PLASMA | | | DEPARTMENT | | | (LAB) | | | OF | | | | | | PATHOLOGY | | + +---------+ + + + | CALCIUM, | 7.8 (L) | 8.5 - 10.5 | [facility] | [...] | + + + + + | [facility] DEPARTMENT OF | [address] | [place] [address] | | | PATHOLOGY | [address] | | | + + + + + | [facility] DEPARTMENT OF | [address] | [place] [address] | | | PATHOLOGY | [address] | | | + + + + + ESOPHAGRAM (02/06/2006 4:19 PM PST) + + + + + + | Component | Value | Ref Range | Performed | Pathologist | | | | | At | Signature | + + + + + + | ESOPHAGUS | Radiologist 1: | | | | | | Dani NASH No. | | | | | | [phone], medical | | | | | | record [id number], ICD-9 | | | | | | 783.3 EXAM: | | | | | | Esophagram. HISTORY: | | | | | | Status post Heller | | | | | | myotomy for achalasia as | | | | | | well asReux-N-Y surgery | | | | | | for obesity. | | | | | | COMPARISON: 11/22/05. | | | | | | FINDINGS: Visipaque | | | | | | was administered orally | | | | | | and fluoroscopic | | | | | | spotimages were | | | | | | obtained. The | | | | | | esophagus is of normal | | | | | | course andcaliber and | | | | | | empties into a small | | | | | | gastric remnant. There | | | | | | is noleak. There is | | | | | | slow emptying from the | | | | | | gastric remnant into | | | | | | thejejunum. Mild | | | | | | esophageal status | | | | | | throughout the entire | | | | | | esophagus isseen. | | | | | | IMPRESSION: 1. Mild | | | | | | esophageal stasis. 2. | | | | | | Negative for leak. | | | | + + + + + + + + | Specimen | + + | | + + + +---------+ + + | Performing | Address | City[facility]State[facility] | Phone Number | | Organization | | | | + +---------+ + + | [facility] DEPARTMENT OF | | | | | RADIOLOGY | | | | + +---------+ + + MAGNESIUM, PLASMA (02/06/2006 6:45 AM PST) + +-------+ + + + | Component | Value | Ref Range | Performed | Pathologist | | | | | At | Signature | + +-------+ + + + | MAGNESIUM,P | 1.8 | 1.8 - 2.5 mg/dL | [facility] | | | LASMA | | | DEPARTMENT | | | | | | OF | | | | | | PATHOLOGY | | + +-------+ + + + + + | Specimen | + + | | + + + + + + + | Performing | Address | City/State/Zipcode | Phone Number | | Organization | | | | + + + + + | [facility] DEPARTMENT OF | [address] | [place] [address] | | | PATHOLOGY | [address] | | | + + + + + | [facility] OF | [address] | [place] [address] | | | PATHOLOGY | [address] | | | + + + + + PHOSPHORUS, PLASMA (02/06/2006 6:45 AM PST) + +-------+ + + + | Component | Value | Ref Range | Performed | Pathologist | | | | | At | Signature | + +-------+ + + + | PHOSPHORUS, | 4.5 | 2.4 - 4.7 mg/dL | [facility] | | | PLASMA [...] DEPARTMENT OF | [address] | [place] [address] | | | PATHOLOGY | [address] | | | + + + + + | [facility] DEPARTMENT OF | [address] | [place] [address] | | | PATHOLOGY | [address] | | | + + + + + BASIC METABOLIC SET (02/06/2006 6:45 AM PST) + +---------+ + + + | Component | Value | Ref Range | Performed | Pathologist | | | | | At | Signature | + +---------+ + + + | GLUCOSE, | 140 (H) | 65 - 110 mg/dL | [...] +---------+ + + + | CREATININE | 0.9 [...] +---------+ + + + | POTASSIUM, | 4.1 | 3.5 - 5.1 | [facility] | [...] + | CALCIUM, | 8.4 (L) | 8.5 - 10.5 | [facility] | [...] DEPARTMENT OF | [address] | [place] [address] | | | PATHOLOGY | [address] | | | + + + + + | [facility] DEPARTMENT | [address] | [place] [address] | | | PATHOLOGY | [address] | | | + + + + + DIFFERENTIAL (02/06/2006 6:45 AM PST) + +--------+ + + + | Component | Value | Ref Range | Performed | Pathologist | | | | | At | Signature | + +--------+ + + + | NEUTROPHIL | 77 (H) | 50 - 70 % | [facility] | | | % | | | DEPARTMENT | | | | | | OF | | | | | | PATHOLOGY | | + +--------+ + + + | LYMPHOCYTE | 18 | 18 - 42 % | [facility] | | | % | | | DEPARTMENT | | | | | | OF | | | | | | PATHOLOGY | | + +--------+ + + + | MONOCYTE % | 5 | 2 - 8 % | [facility] | | | | | | DEPARTMENT | | | | | | OF | | | | | | PATHOLOGY | | + +--------+ + + + | EOS % | 1 | 1 - 3 % | [facility] | | | | | | DEPARTMENT | | | | | | OF | | | | | | PATHOLOGY | | + +--------+ + + + | BASO % | 0 | <3 % | [facility] | | | | | | DEPARTMENT | | | | | | OF | | | | | | PATHOLOGY | | + +--------+ + + + | NEUTROPHIL | 7.2 | 1.8 - 7.7 K/cu | [facility] | | | # | | mm | DEPARTMENT | | | | | | OF | | | | | | PATHOLOGY | | + +--------+ + + + | LYMPHOCYTE | 1.7 | 1.0 - 4.8 K/cu | [facility] | | | # | | mm | DEPARTMENT | | | | | | OF | | | | | | PATHOLOGY | | + +--------+ + + + | MONOCYTE # | 0.5 | 0.1 - 0.6 K/cu | [facility] | | | | | mm | DEPARTMENT | | | | | | OF | | | | | | PATHOLOGY | | + +--------+ + + + | EOS # | 0.1 | <0.6 K/cu mm | [facility] | | | | | | DEPARTMENT | | | | | | OF | | | | | | PATHOLOGY | | + +--------+ + + + | BASO # | 0.0 | <0.3 | [facility] | | | | | [...] + + + + + | [facility] | [address] | [place] [address] | | | PATHOLOGY | [address] | | | + + + + + | [facility] | [facility] [address] | [place] [address] | | | PATHOLOGY | [address] | | | + + + + + CBC, WITH DIFFERENTIAL (02/06/2006 6:45 AM PST) + + + + + + | Component | Value | Ref Range | Performed | Pathologist | | | | | At | Signature | + + + + + + | WHITE CELL | 9.4 | 4.4 - 11.0 K/cu | [facility] | | | COUNT | | mm | DEPARTMENT | | | | | | OF | | | | | | PATHOLOGY | | + + + + + + | RED CELL | 3.88 (L) | 4.00 - 5.20 | [facility] [...] + + + + | HEMATOCRIT | 35.2 (L) | 36.0 - 46.0 % | [facility] | | | | | | DEPARTMENT | | | | | | OF | | | | | | PATHOLOGY | | + + + + + + | MCV | 90.5 | 80.0 - 96.0 fL | [facility] | | | | | | DEPARTMENT | | | | | | OF | | | | | | PATHOLOGY | | + + + + + + | MCHC | 33.6 | 33.4 - 35.5 | [facility] | | | | | g/dL | DEPARTMENT | | | | | | OF | | | | | | PATHOLOGY | | + + + + + + | RDW | 13.9 | 11.5 - 15.0 % | [facility] | | | | | | DEPARTMENT | | | | | | OF | | | | | | PATHOLOGY | | + + + + + + | PLATELET | 153 | 150 - 400 K/cu | [facility] [...] + + + + + | [facility] | [address] [place] [address] | [place] [address] | | | PATHOLOGY | [address] | | | + + + + + | [facility] DEPARTMENT | [address] [place] [address] | [place] [address] | | | PATHOLOGY | [address] | | | + + + + + MAGNESIUM, PLASMA (02/06/2006 6:01 AM PST) + + + + + + | Component | Value | Ref Range | Performed | Pathologist | | | | | At | Signature | + + + + + + | MAGNESIUM,P | See cmnt | 1.8 - 2.5 mg/dL | [facility] | | | LASMA | | | DEPARTMENT | | | | | | OF | | | | | | PATHOLOGY | | + + + + + + + + | Specimen | + + | | + + + + + | Narrative | Performed At | + + + | Staff or dialysis draw required. | [facility] | | | DEPARTMENT OF | | | PATHOLOGY | + + + + + + + + | Performing | Address | City/State/Zipcode | Phone Number | | Organization | | | | + + + + + | [facility] DEPARTMENT OF | [address] | [place] [address] | | | PATHOLOGY | [address] | | | + + + + + | [facility] DEPARTMENT OF | [address] | [place] [address] | | | PATHOLOGY | [address] | | | + + + + + PHOSPHORUS, PLASMA (02/06/2006 6:01 AM PST) + + + + + + | Component | Value | Ref Range | Performed | Pathologist | | | | | At | Signature | + + + + + + | PHOSPHORUS, | See cmnt | 2.4 - 4.7 mg/dL | [facility] | | | PLASMA | | | DEPARTMENT | | | (LAB) | | | OF | | | | | | PATHOLOGY | | + + + + + + + + | Specimen | + + | | + + + + + | Narrative | Performed At | + + + | Staff or dialysis draw required. | [facility] | | | DEPARTMENT OF | | | PATHOLOGY | + + + + + + + + | Performing | Address | City/State/Zipcode | Phone Number | | Organization | | | | + + + + + | [facility] DEPARTMENT | [address] | [place] [address] | | | PATHOLOGY | [address] | | | + + + + + | [facility] OF | [facility] | [place] [address] | | | PATHOLOGY | [address] | | | + + + + + CBC ONLY WITH PLATELET (02/06/2006 6:01 AM PST) + + + + + + | Component | Value | Ref Range | Performed | Pathologist | | | | | At | Signature | + + + + + + | WHITE CELL | See cmnt | 4.4 - 11.0 K/cu | [facility] | | | COUNT | | mm | DEPARTMENT | | | | | | OF | | | | | | PATHOLOGY | | + + + + + + | RED CELL | See cmnt | 4.00 - 5.20 | [facility] | | | COUNT | | M/cu mm | DEPARTMENT | | | | | | OF | | | | | | PATHOLOGY | | + + + + + + | HEMOGLOBIN | See cmnt | 12.0 - 16.0 | [facility] | | | | | g/dL | DEPARTMENT | | | | | | OF | | | | | | PATHOLOGY | | + + + + + + | HEMATOCRIT | See cmnt | 36.0 - 46.0 % | [facility] | | | | | | DEPARTMENT | | | | | | OF | | | | | | PATHOLOGY | | + + + + + + | MCV | See cmnt | 80.0 - 96.0 fL | [facility] | | | | | | DEPARTMENT | | | | | | OF | | | | | | PATHOLOGY | | + + + + + + | MCHC | See cmnt | 33.4 - 35.5 | [facility] | | | | | g/dL | DEPARTMENT | | | | | | OF | | | | | | PATHOLOGY | | + + + + + + | RDW | See cmnt | 11.5 - 15.0 % | [facility] | | | | | | DEPARTMENT | | | | | | OF | | | | | | PATHOLOGY | | + + + + + + | PLATELET | See cmnt | 150 - 400 K/cu | [facility] | | | COUNT | | mm | DEPARTMENT | | | | | | OF | | | | | | PATHOLOGY | | + + + + + + + + | Specimen | + + | | + + + + + | Narrative | Performed At | + + + | Staff or dialysis draw required. | [facility] | | | DEPARTMENT OF | | | PATHOLOGY | + + + + + + + + | Performing | Address | City/State/Zipcode | Phone Number | | Organization | | | | + + + + + | [facility] DEPARTMENT OF | [address] | [place] [address] | | | PATHOLOGY | [address] | | | + + + + + | [facility] DEPARTMENT OF | [address] | [facility] [place] [address] | | | PATHOLOGY | [address] | | | + + + + + BASIC METABOLIC SET (02/06/2006 6:01 AM PST) + + + + + + | Component | Value | Ref Range | Performed | Pathologist | | | | | At | Signature | + + + + + + | GLUCOSE, | See cmnt | 65 - 110 mg/dL | [facility] | | | PLASMA | | | DEPARTMENT | | | (LAB) | | | OF | | | | | | PATHOLOGY | | + + + + + + | BUN, PLASMA | See cmnt | 6 - 20 mg/dL | [facility] | | | (LAB) | | | DEPARTMENT | | | | | | OF | | | | | | PATHOLOGY | | + + + + + + | CREATININE | See cmnt | 0.6 - 1.1 mg/dL | [facility] | | | PLASMA | | | DEPARTMENT | | | (LAB) | | | OF | | | | | | PATHOLOGY | | + + + + + + | SODIUM, | See cmnt | 136 - 145 | [facility] | | | PLASMA | | mmol/L | DEPARTMENT | | | (LAB) | | | OF | | | | | | PATHOLOGY | | + + + + + + | POTASSIUM, | See cmnt | 3.5 - 5.1 | [facility] | | | PLASMA | | mmol/L | DEPARTMENT | | | (LAB) | | | OF | | | | | | PATHOLOGY | | + + + + + + | CHLORIDE, | See cmnt | 98 - 107 mmol/L | [facility] | | | PLASMA | | | DEPARTMENT | | | (LAB) | | | OF | | | | | | PATHOLOGY | | + + + + + + | TOTAL CO2, | See cmnt | 23 - 29 mmol/L | [facility] | | | PLASMA | | | DEPARTMENT | | | (LAB) | | | OF | | | | | | PATHOLOGY | | + + + + + + | CALCIUM, | See cmnt | 8.5 - 10.5 | [facility] | | | PLASMA | | mg/dL | DEPARTMENT | | | (LAB) | | | OF | | | | | | PATHOLOGY | | + + + + + + | POTASSIUM | See cmnt | | [facility] | | | CMNT | | | DEPARTMENT | | | | | | OF | | | | | | PATHOLOGY | | + + + + + + + + | Specimen | + + | | + + + + + | Narrative | Performed At | + + + | Staff or dialysis draw required. | [facility] | | | DEPARTMENT OF | | | PATHOLOGY | + + + + + + + + | Performing | Address | City/State/Zipcode | Phone Number | | Organization | | | | + + + + + | [facility] DEPARTMENT OF | [address] | [place] [address] | | | PATHOLOGY | [address] | | | + + + + + | [facility] DEPARTMENT OF | [address] | [place] [address] | | | PATHOLOGY | [address] | | | + + + + + CHEST 1 VIEW (02/05/2006 3:04 PM PST) + + + + + + | Component | Value | Ref Range | Performed | Pathologist | | | | | At | Signature | + + + + + + | CHEST, 1 | Radiologist 1: LEEANN, | | | | | VIEW | DANK AppiahEXAM: AP | | | | | | chest. COMPARISON: None | | | | | | INDICATION: Eval line | | | | | | placement, Post | | | | | | operative, | | | | | | Esophgealachlasia | | | | | | FINDINGS: Right | | | | | | internal jugular venous | | | | | | line placement with | | | | | | itstip in the | | | | | | brachiocephalic vein. | | | | | | There is no | | | | | | pneumothorax. | | | | | | Cardiacsize is mildly | | | | | | enlarged without | | | | | | pulmonary edema. Patient | | | | | | has had aCABG/CASAS | | | | | | procedure. Bibasilar | | | | | | atelectasis is present. | | | | | | Themediastinum is | | | | | | dense and wide and | | | | | | potentially, | | | | | | consideration kia | | | | | | underlying venous | | | | | | hematoma could be made. | | | | | | IMPRESSION: 1. Right | | | | | | internal jugular central | | | | | | in place with its tip | | | | | | overlyingthe region of | | | | | | the left distal | | | | | | brachiocephalic vein. | | | | | | Differentialwould | | | | | | include a line outside | | | | | | the superior vena cava | | | | | | with a venousmediastinal | | | | | | hematoma. Attention | | | | | | on a follow up | | | | | | examination issuggested. | | | | | | | | | | + + + + + + + + | Specimen | + + | | + + + +---------+ + + | Performing | Address | City/State/Zipcode | Phone Number | | Organization | | | | + +---------+ + + | [facility] DEPARTMENT OF | | | | | RADIOLOGY | | | | + +---------+ + + HEMOGLOBIN A1C (02/05/2006 6:15 AM PST) + + + + + + | Component | Value | Ref Range | Performed | Pathologist | | | | | At | Signature | + + + + + + | HEMOGLOBIN | 6.2 (H)Comment: | <5.8 % | | | | A1C | Non-Diabetic: | | | | | | | | | | | | 4.0-5.7 % Risk For | | | | | | Chronic Complications | | | | | | in Adults: Low | | | | | | risk of complications: | | | | | | <7.0 | | | | | | % Intermediate | | | | | | risk of complications | | | | | | 7.0-7.9 % High | | | | | | risk of complications | | | | | | >7.9 % | | | | | | Test performed by | | | | | | [facility] | | | | | | [facility]. | | | | + + + + + + + + | Specimen | + + | | + + + + + + + | Performing | Address | City/State/Zipcode | Phone Number | | Organization | | | | + + + + + | [facility] | [address] | [place] [address] | | | LABORATORY | | | | + + + + + documented in this encounter Visit Diagnoses Not on filedocumented in this encounter"
--- OUTSIDE RECORDS SUMMARY | ~2019-01-13 | XMS | Encounter Summary ---
Demographics + + + | Address | [address] | | | [place] [address] | + + + | Home Phone [...] [place] | | | | | [phone] | | + + + + + Care Team Providers + +------+ + | Care Oracle R12 Developer Name | Role | Phone | + +------+ + | Tuan Chan MD | PCP | | + +------+ + Reason for Referral Diagnostic Testing (Routine) +--------+--------+ + + + + | Status | Reason | Specialty | Diagnoses / | Referred By | Referred To | | | | | Procedures | Contact | Contact | +--------+--------+ + + + + | Closed | | Radiology | Procedures | Carreno, | Rad Ct Scan | | | | | CT CHEST | Tuan Anglin MD | [facility] [address] | | | | | [address]AST | [address] | | | | | | Wood | [facility] | | | | | | [facility] | Mailcode: | | | | | | [place], [place] | [address] [facility] | | | | | | [address] | Hospital | | | | | | | [place], [place] | | | | | | | [address] | | | | | | | Phone: | | | | | | | [phone] | | | | | | | Fax: | | | | | | | [phone] | +--------+--------+ + + + + Diagnostic Testing (Routine) +--------+--------+ + + + + | Status | Reason | Specialty | Diagnoses / | Referred By | Referred To | | | | | Procedures | Contact | Contact | +--------+--------+ + + + + | Closed | | Radiology | Procedures | Bridges, | Rad Ct Scan | | | | | CT CTA | Socorro Genao MD | [address] | | | | | HEAD WITH | [address] | | | | | CONTRAST | [address] | [facility] [place] | | | | | | [address] | Mailcode: | | | | | | [place] | [address] [place] | | | | | | [address] | Hospital | | | | | | Phone: | [place], [place] | | | | | | [phone] | [address] | | | | | | Fax: | Phone: | | | | | | [phone] | [phone] | | | | | | | Fax: | | | | | | | [phone] | +--------+--------+ + + + + Diagnostic Testing (Routine) +--------+--------+ + + + + | Status | Reason | Specialty | Diagnoses / | Referred By | Referred To | | | | | Procedures | Contact | Contact | +--------+--------+ + + + + | Closed | | Radiology | Procedures | [place], | Rad [facility] | | | | | MRI BRAIN | Raman Barrett, | [address] | | | | | [address] CONTRAST | [place] [address] | [address] | | | | | | [address] | | | | | | [address] | Mailcode: | | | | | | [place], [place] | [facility] | | | | | | [address] | [place] | | | | | | Phone: | Research | | | | | | [phone] | [place] | | | | | | Fax: | [place], [place] | | | | | | [phone] | [address] | | | | | | | Phone: | | | | | | | [phone] | | | | | | | Fax: | | | | | | | [phone] | +--------+--------+ + + + + Reason for Visit +--------+ + | Reason | Comments | +--------+ + | Other | cervical fx | +--------+ + AUTH/CERT +--------+--------+ + + + + | Status [...] | +--------+ + + + + | 04/21/ | Hospital | [place] [address] | Bryan Adams MD | | | 2012 - | Encounter | CAMPUS Dr | [address] | | | | | [id number]/[address] | [facility] | | | 04/24/ | | [place], | [place] [address] | | | 2012 | | [place] [address] | [phone] | | | | | [phone] | | | | | | | Chaim Vizcarra MD | | | | | | [address] | | | | | | [address] [place], | | | | | | [place] [address] | | | | | | [phone] | | | | | | | [...] + + + | Blood Pressure | 139/83 | 04/24/2012 7:44 AM | | | | | PST | | + + + + + | Pulse | 57 | 04/24/2012 7:44 AM | | | | | PST | | + + + + + | Temperature | 36.6 C (97.9 F) | 04/24/2012 7:44 AM | | | | | PST | | + + + + + | Respiratory Rate | 18 | 04/24/2012 7:44 AM | | | | | PST | | + + + + + | Oxygen Saturation | 98% | 04/24/2012 7:44 AM | | | | | PST | | + + + + + | Inhaled Oxygen | - | - | | | Concentration | | | | + + + + + | Weight | 84.5 kg (186 lb 4.6 | 04/21/2012 9:45 PM | | | | oz) | PST | | + + + + + | Height | 162.6 cm (5' 4") | 04/22/2012 8:00 AM | | | | | PST | | + + + + + | Body Mass Index | 31.98 | 04/21/2012 9:45 PM | | | | | PST | | + + + + + documented in this encounter Discharge Summaries Halley Noriega MD - 04/24/2012 8:08 AM PST INPATIENT PHYSICIAN DISCHARGE SUMMARY Author: TUAN CARRENO MD Attending Physician: Halley Noriega MD PCP: Tuan Chan MD Admission Date: 04/21/2012 Discharge Date: 04/24/2012 Principal Final Diagnoses: Canales's Palsy Additional Diagnoses: Numbness and parasthesias of the L hand and foot, Darier's disease Principal Procedure: Attempted lumbar puncture Additional Procedures: None Hospital Course: Germaine Heard is a 66 year old woman with PMHx obesity, CAD, GERD, DM2, chronic back pain, who tripped on some [employer] cords 10 days prior to admission, in the process falling on her side and hitting both her knees and her head. There was no loss of consciousness. Then, approximately four days later, she noticed tingling in her left fingertips and left toes, w hich progressively travelled up her legs and arms, stopping at her knees and elbows, respect ively. She also noticed some weakness in her left arm and leg. Later that same day, her husb and noticed sudden onset of left facial droop and slurred speech. Patient denied headaches, changes in vision, and nausea/vomiting. She has chronic back pain but no significant neck pa in, and no radicular pain. She has had no changes in bowel/bladder habits. She presented to an outside hospital, where a CT was done on 04/17, and an MRI on 04/20. She says she was diagn osed with stroke, but had a negative workup, and the physician wasn't certain her symptoms w ere compatible with stroke. He then ordered a CT and MRI of her cervical spine this afternoo n demonstrating a dens fracture, and she was subsequently transferred to [facility] for escalation of care. On comparison to old imaging, it was determined that her dens fracture was a chron ic issue not an acute one and she was transferred to the Neurology service for further work- up of her facial droop. Multiple cranial neuropathies On arrival to the Neurology floor, patient demonstrated intact visual pandya, EOMI with spa ring of CN and without nystagmus, decreased sensation on the left side of the face with a bsent left corneal reflex, prominent left facial droop with involvement of the upper face, s ubjectively decreased hearing on the left, symmetric palate elevation, normal shoulder shrug and head turn, and normal tongue movements. MRI demonstrated no acute abnormalities or enha ncement, but did show increased T2 signal in the nakul and diffusely in the cortex, most c/w small vessel ischemic changes. During the course of her hospitalization, her facial weakness improved, but was still appreciable. Her hearing also improved. We believe her facial weakn ess is from Canales's palsy, but the involvement of CN V (facial numbness, absent corneal refle x) raises question of an alternative diagnosis. An investigation was initiated for autoimmun e processes. Labs that have returned thus far do not indicate an inflammatory process (ESR a nd CRP wnl), and complement levels were also wnl. CT of the chest did not show any perihilar adenopathy, which is reassuring for sarcoidosis. The remainder of the workup is still pendi ng and will need follow up. She was given white petroleum for drying of her eyes secondary t o facial weakness. Numbness and parasthesias of hands and feet By the time of discharge, patient stated the parasthesias were much improved, and only exte nded to her wrist and ankles on the left with no motor deficits or reflex abnormalities. 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 She w as given triamcinolone cream per Dermatology recommendations. Patient stated she would like to pursue Derm follow-up closer to her home in [place]. Medications: Discharge Medication List as of 04/24/2012 10:42 AM START taking these medications Details acetaminophen 325 mg Oral tablet Take 1-2 Tabs by mouth every six hours as needed., OTC MISCELLANEOUS MEDICAL SUPPLY (CANE ADJUST/FIXED WITH TIP) Disp-1 Each, R-0, Normal triamcinolone acetonide 0.1 % Topical Ointment Apply to affected area two times daily. Wali ly thin film to affected areas., Disp-15 g, R-0, Print Prescription white petrolatum-mineral oil 83-15 % Ophthalmic Ointment Instill 1 Each into the left eye o nce daily at bedtime., Disp-3.5 g, R-0, Print Prescription CONTINUE these medications which have CHANGED or have new prescriptions Details clopidogrel (PLAVIX) 75 mg Oral tablet Take 1 Tab by mouth once daily. Do not re-start this medication until 04/29/2012., Disp-1 Tab, R-0, Print Prescription CONTINUE these medications which have NOT CHANGED Details ALBUTEROL 90 MCG/ACTUATION AEROSOL INHALER inhale 1 puff by inhalation route every 4-6 hour s as needed, Historical Med bumetanide 1 mg Oral Tablet 1 tab daily, Historical Med buPROPion SR (WELLBUTRIN SR) 150 mg Oral Tablet Sustained Release 1 tablet daily, Historica l Med lisinopril 5 mg Oral Tablet take 1 tablet (5 mg) by oral route once daily, Historical Med metoprolol succinate 50 mg Oral tablet extended release 24 hr Take 50 mg by mouth once brandy y. , Historical Med morphine ER 60 mg Oral tablet extended release Take 60 mg by mouth once daily. , Historica l Med oxyCODONE-acetaminophen (PERCOCET) 10-325 mg Oral tablet Take 1 Tab by mouth every six hour s as needed. Not to exceed 12 tablets per any 24 hour period. , Historical Med potassium chloride SR 10 mEq Oral tablet,ER particles/crystals Take 10 mEq by mouth once da demetrius. , Historical Med Outstanding labs/studies: EUGENE antibodies, MEHDI, B12, Lyme, HIV,TSH and free T4 Diet: Regular Activity: No restrictions on activity Follow Up: Follow-up with Neurology in one month or sooner if you have new neurological sym ptoms Disposition: Home Condition: Good Discharging Physician: TUAN CARRENO MD Attending Physician: MD Tuan Sethi MD Neurology Cryptologic Support Specialist Pager [phone] I saw and evaluated the patient. I agree with the findings and the plan of care as yesika lares in the resident s note. Halley Noriega MD Occupational Therapist Aide Department of Neurology [facility] DEPARTMENT: Neurology Attending - [phone] Place of Service: [facility] [address] Date of Service: 04/24/2012 CSN: [id number] Suggestive Modifier: GC - Resident Present Suggested CPT: 05270 - Discharge Day mgmt up to 30 min Suggested Diagnosis: Multiple cranial neuropathies documented in this enco unter Discharge Instructions AttachmentsThe following attachments cannot be sent through Care Everywhere.Canales's Palsy: A fter Your Visitdocumented in this encounter Medications at Time of Discharge + + + +---------+ + + | Medication | Sig | Dispensed | Refills | Start | End Date | | | | | | Date | | + + + +---------+ + + | acetaminophen 325 | Take 1-2 Tabs by | | 0 | 01/25/20 | | | mg Oral tablet | mouth every six | | | 13 | | | | hours as needed. | | | | | + + + +---------+ + + | ALBUTEROL 90 | inhale 1 puff by | | 0 | | | | MCG/ACTUATION | inhalation route | | | | | | AEROSOL INHALER | every 4-6 hours as | | | | | | | needed | | | | | + + + +---------+ + + | bumetanide 1 mg | 1 tab daily | | 0 | | | | Oral Tablet | | | | | | + + + +---------+ + + | buPROPion SR | 1 tablet daily | | 0 | | | | (WELLBUTRIN SR) 150 | | | | | | | mg Oral Tablet | | | | | | | Sustained Release | | | | | | + + + +---------+ + + | clopidogrel | Take 1 Tab by mouth | 1 Tab | 0 | 04/24/19 | | | (PLAVIX) 75 mg Oral | once daily. Do not | | | 13 | | | tablet | re-start this | | | | | | | medication until | | | | | | | 04/29/2012. | | | | | + + + +---------+ + + | lisinopril 5 mg | take 1 tablet (5 mg) | | 0 | | | | Oral Tablet | by oral route once | | | | | | | daily | | | | | + + + +---------+ + + | metoprolol | Take 50 mg by mouth | | 0 | | | | succinate 50 mg Oral | once daily. | | | | | | tablet extended | | | | | | | release 24 hr | | | | | | + + + +---------+ + + | morphine ER 60 mg | Take 60 mg by mouth | | 0 | | | | Oral tablet extended | once daily. | | | | | | release | | | | | | + + + +---------+ + + | | Take 1 Tab by mouth | | 0 | | | | oxyCODONE-acetaminop | every six hours as | | | | | | hen (PERCOCET) | needed. Not to | | | | | | 10-325 mg Oral | exceed 12 tablets | | | | | | tablet | per any 24 hour | | | | | | | period. | | | | | + + + +---------+ + + | potassium chloride | Take 10 mEq by mouth | | 0 | | | | SR 10 mEq Oral | once daily. | | | | | | tablet,ER | | | | | | | particles/crystals | | | | | | + + + +---------+ + + | triamcinolone | Apply to affected | 15 g | 0 | 04/24/19 | | | acetonide 0.1 % | area two times | | | 13 | | | Topical Ointment | daily. Apply thin | | | | | | | film to affected | | | | | | | areas. | | | | | + + + +---------+ + + | white | Instill 1 Each into | 3.5 g | 0 | 04/24/19 | | | petrolatum-mineral | the left eye once | | | 13 | | | oil 83-15 % | daily at bedtime. | | | | | | Ophthalmic Ointment | | | | | | + + + +---------+ + + | MISCELLANEOUS | | 1 Each | 0 | 04/24/19 | | | MEDICAL SUPPLY (CANE | | | | 13 | 3 | | ADJUST/FIXED WITH | | | | | | | TIP) | | | | | | + + + +---------+ + + documented as of this encounter Progress Notes Danielle Wynn PA - 04/23/2012 12:51 PM PSTNeurosurgery Brief Note: Reviewed C Spine Imaging with Staff, Dr. Adams. No significant cervical instability, eviden ce of chronic C 2 fracture. No acute changes. Patient seen with Dr. Adams. Pt. Denying neck pain. Cervical Collar removed, patient denied pain with AROM. C collar discontinued. Information re: imaging relayed to patient. Evidence of prior fracture. No current instabil ity, need for Neurosurgical intervention but higher risk of injury, instability if patient h as trauma to C spine. Pt. Stated understanding of information. Patient counseled to follow u p with Neurosurgery Clinic on PRN neck pain basis. Dr. Adams gave patient his card. If has f uture neck pain Cervical Spine fusion may be indicated. Neurosurgery Service will sign off at this time in patient care. Please contact our service should there be any need to re-consult, any questions. DANIELLE WYNN PA-C [facility] [address] [place] [address] etrona Wynn PA - 04/23/2012 10:44 AM PSTFormatting of this note might be different from the orig inal. NEUROSURGERY DAILY PROGRESS NOTE Author: DANIELLE WYNN PA-C Attending Physician: Chaim Vizcarra MD Neurosurgery Attending: Bryan Adams MD HPI/Interval Update: No events overnight. C spine Flex/Ext X-ray completed-Denies neck pain. Current Medications: Current Facility-Administered Medications Medication acetaminophen (aka TYLENOL) tablet 325-650 mg Or acetaminophen (aka TYLENOL) oral suspension 327-650 mg Or acetaminophen (aka TYLENOL) suppository 325-650 mg albuterol (aka PROVENTIL, VENTOLIN) 90 mcg/actuation inhaler 2 Puff bisacodyl (aka DULCOLAX) suppository 10 mg bumetanide (aka BUMEX) tablet 1 mg buPROPion XL (aka WELLBUTRIN-XL) tablet 150 mg clopidogrel (aka PLAVIX) tablet 75 mg dextrose IV 25 mL enoxaparin (aka LOVENOX) injection 40 mg glucagon (aka GLUCAGEN) injection 1 mg glucose chewable tablet 16 g guar gum (aka BENEFIBER) oral powder 1 Packet Or guar gum (aka BENEFIBER) oral powder 1 Packet insulin regular (aka HUMULIN R) injection 1-16 Units lisinopril (aka PRINIVIL) tablet 5 mg metoprolol tartrate (aka LOPRESSOR) tablet 25 mg morphine ER (aka MS CONTIN) tablet 60 mg oxyCODONE (immediate release) (aka ROXICODONE) tablet 5-15 mg Or oxyCODONE (immediate release) (aka ROXICODONE) liquid 5-15 mg polyethylene glycol (aka MIRALAX) powder 17 g Or polyethylene glycol (aka MIRALAX) powder 17 g potassium chloride (aka KAOCHLOR) liquid 10-40 mEq Or potassium chloride (aka KAOCHLOR) liquid 10-40 mEq senna-docusate (aka SENOKOT S) 8.6-50 mg 1 Tab simethicone chew (aka MYLICON) tablet 80 mg Or simethicone (aka MYLICON) suspension 80 mg Physical Exam: BP 133/49 | Pulse 64 | Temp 36.7 C (98.1 F) | RR 18 | Ht 1.626 m (5' 4") | Wt 84.5 kg ( 186 lb 4.6 oz) | SpO2 95% | BMI 31.98 kg/(m^2) Temp Av.8 C (98.3 F) Min: 36.7 C (98.1 F) Max: 37.1 C (98.7 F) Pulse Av.2 Min: 57 Max: 67 Systolic (24hrs), Av mmHg, Min:114 mmHg, Max:154 mmHg Diastolic (24hrs), Av mmHg, Min:49 mmHg, Max:98 mmHg Resp Av.2 Min: 13 Max: 18 SpO2 Av.6 % Min: 95 % Max: 97 % Intake/Output Summary (Last 24 hours) at 04/23/12 1044 Last data filed at 04/23/12 0800 Gross per 24 hour Intake 1550 ml Output 2200 ml Net -650 ml Lab Results Component Value Date/Time NA 139 04/23/2012 7:45 AM NA 138 03/13/2011 7:46 AM NA 145* 03/11/2011 5:13 PM K 4.0 04/23/2012 7:45 AM K 4.7 03/13/2011 7:46 AM K 4.6 03/11/2011 5:13 PM CR 0.80 04/23/2012 7:45 AM CR 0.79 03/13/2011 7:46 AM CR 0.8 03/11/2011 5:13 PM HCT 38.8 04/23/2012 7:45 AM HCT 35.4* 03/13/2011 7:46 AM HCT See [facility] 03/11/2011 5:13 PM WBC 6.8 04/23/2012 7:45 AM WBC 6.4 03/13/2011 7:46 AM WBC See nt 03/11/2011 5:13 PM PLT 209 04/23/2012 7:45 AM PLT 217 03/13/2011 7:46 AM PLT See [facility] 03/11/2011 5:13 PM CULTURE RESULT (no units) Date Value 03/11/2011 Urine Culture Source...............: Voided Urine sensitivities Culture: Multiple organisms are present indicating probable contamination or colonization not related to infection. Further work-up of these organisms may re sult in clinically misleading information due to the low numbers and/or mixture of organisms present. Recollection is suggested if clinically indicated. 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 Gen: 66 y/o Female in Hard Cervical Collar NAD Alert and oriented to person, place and time,Speech appropriate PERRL, EOMI, Left facial droop, tongue midline, Decreased Left V1-V3 to light touch, otherw ise intact. 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 female HD# 2 With multiple left cranial nerve palsies (CN V-VIII) with Left House Brackmann II. CT C-Spine demonstrates stable dens fracture without c ompression of her brainstem. MRI Brain demonstrates multiple FLAIR abnormalities in the bila teral hemispheres as well as the brainstem Care per Primary Team- Neurology Will discuss C spine imaging with staff to determine need for C collar Will continue to follow. 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 Cranial Nerves: PERRL, visual pandya full to finger counting bilaterally. Gaze conjugate, EOMI, no nystagmus. Decreased in left V1-V3 Left sided facial droop with upper facial involvement (peripheral palsy). Hearing symmetric Palate elevates symmetrically Normal shoulder shrug. Tongue protrudes midline and moves side to side. Motor: Normal tone in all groups. Slight downward drift, but no pronation. Delt Tri Bi WE WF DI HF HE KF KE APF ADF Left 5 4+ 4+ 5 5 5 4+ - 5 5 5 5 Right 5 5 5 5 5 5 5 - 5 5 5 5 DTRs: Biceps Triceps Brachioradialis Knee Ankle Left 2 2 2 2 2 Right 2 2 2 2 2 Sensation: Light Touch:subjective decrease on the fingers and toes Vibration: Subjectively slightly decreased on left upper and lower extremity . Head: NCAT Eyes: No scleral icterus, conjunctiva pink. Mouth: Moist mucus membranes Cardiovascular: RRR Respiratory: Breathing comfortably Skin: Widespread flat-topped scaly erythematous papules coalescing into plaques with scatt ered excoriations worst on upper > lower back, some on chest and Labs: Chemistries: Last 72 Hours (or 3 results): Recent Labs Basename 04/23/12 0745 04/22/12 2130 04/22/12 1817 04/21/12 2151 NA 139 -- -- 140 K 4.0 -- -- 4.0 CL 104 -- -- 105 BICARB 26 -- -- 29 BUN 15 -- -- 11 CR 0.80 -- -- 0.66 GLU 109* 83 102* -- CA 8.0* -- -- 7.7* MG -- -- -- 2.0 PO4 5.0* -- -- -- CBC with diff last 96 hours (or 3 results) Recent Labs Basename 04/23/12 0745 04/21/12 2151 WBC 6.8 6.7 HB 12.9 12.0 HCT 38.8 36.5 PLT 209 202 Lab Results Component Value Date INRPT 1.00 04/23/2012 Current Medications: Current Inpatient Medications Medication Dose Route Frequency acetaminophen (aka TYLENOL) tablet 325-650 mg 325-650 mg Oral Q6H PRN Or acetaminophen (aka TYLENOL) oral suspension 327-650 mg 327-650 mg Feeding Tube Q6H PRN Or acetaminophen (aka TYLENOL) suppository 325-650 mg 325-650 mg Rectal Q6H PRN albuterol (aka PROVENTIL, VENTOLIN) 90 mcg/actuation inhaler 2 Puff 2 Puff Inhalation Q4H PRN bisacodyl (aka DULCOLAX) suppository 10 mg 10 mg Rectal BID PRN bumetanide (aka BUMEX) tablet 1 mg 1 mg Oral DAILY buPROPion XL (aka WELLBUTRIN-XL) tablet 150 mg 150 mg Oral DAILY clopidogrel (aka PLAVIX) tablet 75 mg 75 mg Oral DAILY dextrose IV 25 mL 25 mL Intravenous PRN enoxaparin (aka LOVENOX) injection 40 mg 40 mg Subcutaneous QPM glucagon (aka GLUCAGEN) injection 1 mg 1 mg Intramuscular PRN glucose chewable tablet 16 g 16 g Oral Q15MIN PRN guar gum (aka BENEFIBER) oral powder 1 Packet 1 Packet Oral DAILY PRN Or guar gum (aka BENEFIBER) oral powder 1 Packet 1 Packet Feeding Tube DAILY PRN insulin regular (aka HUMULIN R) injection 1-16 Units 1-16 Units Subcutaneous MEALS and HS lisinopril (aka PRINIVIL) tablet 5 mg 5 mg Oral DAILY metoprolol tartrate (aka LOPRESSOR) tablet 25 mg 25 mg Oral BID morphine ER (aka MS CONTIN) tablet 60 mg 60 mg Oral DAILY oxyCODONE (immediate release) (aka ROXICODONE) tablet 5-15 mg 5-15 mg Oral Q3H PRN Or oxyCODONE (immediate release) (aka ROXICODONE) liquid 5-15 mg 5-15 mg Feeding Tube Q3H PRN polyethylene glycol (aka MIRALAX) powder 17 g 17 g Oral DAILY PRN Or polyethylene glycol (aka MIRALAX) powder 17 g 17 g Feeding Tube DAILY PRN potassium chloride (aka KAOCHLOR) liquid 10-40 mEq 10-40 mEq Oral PRN Or potassium chloride (aka KAOCHLOR) liquid 10-40 mEq 10-40 mEq Feeding Tube PRN senna-docusate (aka SENOKOT S) 8.6-50 mg 1 Tab 1 Tab Oral BID simethicone chew (aka MYLICON) tablet 80 mg 80 mg Oral TID PRN Or simethicone (aka MYLICON) suspension 80 mg 80 mg Feeding Tube TID PRN Imaging: MRI (04/22/12): IMPRESSION: No acute intracranial abnormality. Mild chronic white matter small vessel ische wally changes are stable from recent outside MRI performed 04/20/12. Attending Radiologists: Joseph Hale MD Assessment: Gemraine Heard is a 66 y.o. 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 MRI demonstrates no acute abnormalities or enhancemen t, but increased T2 signal in the nakul and diffusely in the cortex, most c/w small vessel is chemic changes. Canales's palsy is most likely given her h/o DM2, sudden onset sx, and negativ e MRI; however, she does have other neurological complaints (possibly functional in etiology , difficult to determine) that are not exclusive to peripheral 7th involvement. Therefore, the other neurologic complaints (which may or may not be organic) broaden the differential t o included infectious (most likely viral) vs autoimmune neuropathies. Plan: -- f/u HIV, MEHDI, EUGENE, C3, C4, Lyme's DAVID -- will discuss importance of holding Plavix for ?repeat LP (got dose today) - ?consult car diology -- triamcinolone 1% ointment to Darier's disease rash BID per dermatology -- white petroleum OS for L facial weakness -- continue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 Diagnoses Date Noted | | | Cervical spine fracture 04/21/2012 | | | Hernia 08/05/2008 | | | Panniculitis 01/15/2008 | | | Intertrigo 01/15/2008 | | | Achalasia 03/03/2006 | | | Obesity 03/03/2006 | | | Dysmetabolic Syndrome X 11/21/2005 | | | CAD (Coronary Artery Disease) 11/21/2005 | | | Sleep Apnea 11/21/2005 | | | Gout 11/21/2005 | | | DM Circ Dis Type II, Uncontrolled 11/21/2005 | | | Dyslipidemia 11/21/2005 FHx: Family History Problem | | | Relation | | | Heart Disease Mother | | | Diabetes Mother | | | Heart Disease Brother CHF SHx: History Social | | | History | | | Marital Status: Spouse Name: N/A Number of | | | Children: 1 | | | Years of Education: N/A 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 [employer] Social History Main Topics | | | | | | Smoking status: Former Smoker -- 3.0 packs/day for 20 years | | | Types: Cigarettes Quit date: 11/20/1988 | | | Smokeless tobacco: Not on file | | | Alcohol Use: No quit 18 years ago | | | Drug Use: No | | | Sexually Active: Not on file Other Topics Concern | | | Not on file Social History Narrative | | | No narrative on file Meds: Current facility-administered | | | medications:acetaminophen (aka TYLENOL) oral suspension 327-650 mg, | | | 327-650 mg, Feeding Tube, Q6H PRN, Socorro Jarrell MD | | | acetaminophen (aka TYLENOL) suppository 325-650 mg, 325-650 mg, | | | Rectal, Q6H PRN, Socorro Jarrell MD acetaminophen (aka TYLENOL) | | | tablet 325-650 mg, 325-650 mg, Oral, Q6H PRN, Socorro Jarrell MD, | | | 650 mg at 04/23/12950 albuterol (aka PROVENTIL, VENTOLIN) 90 | | | mcg/actuation inhaler 2 Puff, 2 Puff, Inhalation, Q4H PRN, Viktoriya | | | Matty Downs MD artificial tears (hypromellose) (aka NATURES TEARS) | | | 0.4 % ophthalmic drops 1 Drop, 1 Drop, Both Eyes, PRN, Tuan Carreno V, | | | bisacodyl (aka DULCOLAX) suppository 10 mg, 10 mg, Rectal, BID | | | PRN, Socorro Jarrell MD bumetanide (aka BUMEX) tablet 1 mg, 1 mg, | | | Oral, DAILY, Viktoriya Downs MD, 1 mg at 04/23/12950 | | | buPROPion XL (aka WELLBUTRIN-XL) tablet 150 mg, 150 mg, Oral, DAILY, | | | Viktoriya Downs MD, 150 mg at 04/23/12950 clopidogrel (aka | | | PLAVIX) tablet 75 mg, 75 mg, Oral, DAILY, Viktoriya Downs MD, | | | 75 mg at 01/24/13 0951 dextrose IV 25 mL, 25 mL, Intravenous, PRN, | | | Viktoriya Downs MD enoxaparin (aka LOVENOX) injection 40 mg, | | | 40 mg, Subcutaneous, QPM, Viktoriya Downs MD, 40 mg at | | | 04/22/12 2117 glucagon (aka GLUCAGEN) injection 1 mg, 1 mg, | | | Intramuscular, PRN, Viktoriya Downs MD glucose chewable | | | tablet 16 g, 16 g, Oral, Q15MIN PRN, Viktoriya Downs MD guar | | | gum (aka BENEFIBER) oral powder 1 Packet, 1 Packet, Oral, DAILY PRN, | | | Socorro Jarrell MD guar gum (aka BENEFIBER) oral powder 1 Packet, 1 | | | Packet, Feeding Tube, DAILY PRN, Socorro Jarrell MD insulin | | | regular (aka HUMULIN R) injection 1-16 Units, 1-16 Units, | | | Subcutaneous, MEALS and HS, Viktoriya Downs MD lidocaine (aka | | | XYLOCAINE MPF) injection, , , , lisinopril (aka PRINIVIL) tablet 5 | | | mg, 5 mg, Oral, DAILY, Viktoriya Downs MD, 5 mg at 04/23/12 | | | 0951 metoprolol tartrate (aka LOPRESSOR) tablet 25 mg, 25 mg, Oral, | | | BID, Viktoriya Downs MD, 25 mg at 04/23/12 0951 morphine ER | | | (aka MS CONTIN) tablet 60 mg, 60 mg, Oral, DAILY, Viktoriya Starr | | | MD Himanshu oxyCODONE (immediate release) (aka ROXICODONE) liquid | | | 5-15 mg, 5-15 mg, Feeding Tube, Q3H PRN, Socorro Jarrell MD | | | oxyCODONE (immediate release) (aka ROXICODONE) tablet 5-15 mg, 5-15 | | | mg, Oral, Q3H PRN, Socorro Jarrell MD, 10 mg at 04/23/12 0950 | | | pneumococcal (23-valent) polysaccharide vaccine (aka PNEUMOVAX) | | | injection 0.5 mL, 0.5 mL, Intramuscular, ONE TIME IN THE MORNING, | | | Vera Cook MD,MPH polyethylene glycol (aka MIRALAX) powder 17 | | | g, 17 g, Oral, DAILY PRN, Socorro Jarrell MD, 17 g at 04/23/12 | | | 1000 polyethylene glycol (aka MIRALAX) powder 17 g, 17 g, Feeding | | | Tube, DAILY PRN, Socorro Jarrell MD senna-docusate (aka SENOKOT S) | | | 8.6-50 mg 1 Tab, 1 Tab, Oral, BID, Socorro Jarrell MD, 1 Tab at | | | 04/23/12 0952 simethicone (aka MYLICON) suspension 80 mg, 80 mg, | | | Feeding Tube, TID PRN, Socorro Jarrell MD simethicone chew (aka | | | MYLICON) tablet 80 mg, 80 mg, Oral, TID PRN, Socorro Jarrell MD | | | white petrolatum-mineral oil (aka LACRILUBE) 83-15 % ophthalmic | | | ointment, , Left Eye, HS, Vera Cook MD,MPH All: Allergies | | | Allergen Reactions | | | Codeine Hives and Rash Review of Systems: Other than | | | stated in the HPI and PMHx, the patient denied any fever, chills, | | | abdominal pain, nausea, vomiting, diarrhea, YOST, vision changes, | | | swollen lymph nodes, dizziness, mouth lesions, genital lesions or | | | urinary symptoms, weight change, psychiatric changes, arthalgias or | | | muscle aches, chest pain, weakness, or respiratory complaints. | | | PE: BP 122/56 | Pulse 62 | Temp 36.9 C (98.4 F) | RR 18 | Ht | | | 1.626 m (5' 4") | Wt 84.5 kg (186 lb 4.6 oz) | SpO2 95% | BMI 31.98 | | | kg/(m^2) GEN-Well appearing, pleasant, no apparent distress. Normal | | | mood and affect. Skin-A complete skin exam was performed including | | | examination of the scalp, face, ears, lips, eyelids, neck, chest, | | | abdomen, back, buttocks, bilateral arms, bilateral legs, hands, feet | | | and were notable for the following: - Upper back, posterior neck, | | | sacral area, central chest: Widespread flat-topped scaly | | | erythematous papules coalescing into plaques with scattered | | | excoriations - Palms: Scattered punctate small keratotic papules - | | | Fingernails: Onychorrhexis but no characteristic findings of | | | Darier's PATH (2009): MICROSCOPIC DESCRIPTION: There are three | | | punch specimens with similar findings of an intraepidermal vesicle | | | with suprabasalar acantholysis and significant dyskeratotic | | | keratinocytes and parakeratosis. 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 NOTE: In this | | | clinical scenario, DARIER'S DISEASE is most likely. 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 Darier's flares can be exacerbated by | | | stress which would explain the recent worsening. It is doubtful | | | that the patient's skin findings are related to her neurological | | | issues. - Triamcinolone 0.1% ointment to affected area bid - She | | | prefers to follow-up closer to her home in [place]; would f/u with | | | a paste up artist there if not improved on topicals Please contact | | | us with further questions. The patient was seen and examined with | | | the attending physician. We discussed the recommendations listed | | | above. Trevor Sosa M.D. Resident, Department of | | | Dermatology [facility] Attending | | | Physician Attestation I personally interviewed, examined the patient, | | | and discussed management with the resident. I reviewed and edited | | | the resident's note and agree with the documented findings and plan | | | of care. Khoa Manuel MD, PhD Occupational Therapist Aide, | | | Department of Dermatology [facility] | | | DEPARTMENT: [id number] [facility] Place of Service:- | | | Inpatient Date of Service: 04/23/2012 MEDICAL RECORD NUMBER | | | [id number] CSN: [id number] Suggested Modifier: GC Resident Involved: | | | GC Resident Involved Suggested CPT: 51319 - Initial, Detailed; Low | | | complex 30 min | | + + + + + | Procedure Note | + + | Khoa Manuel MD,PhD - 04/23/2012 2:08 PM PST Formatting of this note might be | | different from the original.DERMATOLOGY CONSULTREASON FOR CONSULT: RashCONSULT REQUESTED | | BY: Vera Cook M.D.DERMATOLOGY RESIDENT: Trevor Sosa M.D.DERMATOLOGY | | ATTENDING: Khoa Manuel M.D.HPI: Germaine Heard is a 66 y/o female admitted 04/21 | | with multiple left cranial nerve palsies (CN V-VIII), currently undergoing workup by | | neurology. Dermatology is consulted for a rash on her trunk. Patient states that rash | | has been present on her upper back and chest for about one month. The rash is described | | as scaly and itchy. She has not been using anything topically on the area. Her PCP | | put her on a course of oral antibiotics which did not help. No close contacts with a | | similar dermatitis. No recent medications.She mentions that she was seen by [facility] | | dermatology in 2008 with a rash. 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.PMHx:Patient Active Problem List | | Diagnoses Date Noted | | Cervical spine fracture 04/21/2012 | | Hernia 08/05/2008 | | Panniculitis 01/15/2008 | | Intertrigo 01/15/2008 | | Achalasia 03/03/2006 | | Obesity 03/03/2006 | | Dysmetabolic Syndrome X 11/21/2005 | | CAD (Coronary Artery Disease) 11/21/2005 | | Sleep Apnea 11/21/2005 | | Gout 11/21/2005 | | DM Circ Dis Type II, Uncontrolled 11/21/2005 | | Dyslipidemia 11/21/2005 FHx: Family History Problem Relation | | Heart Disease Mother | | Diabetes Mother | | Heart Disease Brother CHF SHx:History Social History | | Marital Status: Spouse Name: N/A Number of Children: 1 | | Years of Education: N/A Occupational History | | [employer] Social History Main Topics | | Smoking status: Former Smoker -- 3.0 packs/day for 20 years Types: Cigarettes Quit | | date: 11/20/1988 | | Smokeless tobacco: Not on file | | Alcohol Use: No quit 18 years ago | | Drug Use: No | | Sexually Active: Not on file Other Topics Concern | | Not on file Social History Narrative | | No narrative on file Meds: Current facility-administered medications:acetaminophen | | (aka TYLENOL) oral suspension 327-650 mg, 327-650 mg, Feeding Tube, Q6H PRN, Socorro Genao | | Donavon Jarrellminophen (aka TYLENOL) suppository 325-650 mg, 325-650 mg, Rectal, Q6H | | PRN, Socorro Jarrell MDacetaminophen (aka TYLENOL) tablet 325-650 mg, 325-650 mg, Oral, | | Q6H PRN, Socorro Jarrell MD, 650 mg at 04/23/12 0951albuterol (aka PROVENTIL, | | VENTOLIN) 90 mcg/actuation inhaler 2 Puff, 2 Puff, Inhalation, Q4H PRN, Viktoriya Starr | | Damaris Downs tears (hypromellose) (aka NATURES TEARS) 0.4 % ophthalmic drops | | 1 Drop, 1 Drop, Both Eyes, PRN, Tuan Anglin MDbisacodyl (aka DULCOLAX) suppository 10 | | mg, 10 mg, Rectal, BID PRN, Socorro Jarrell MDbumetanide (aka BUMEX) tablet 1 mg, 1 mg, | | Oral, DAILY, Viktoriya Downs MD, 1 mg at 04/23/12 0951buPROPion XL (aka | | WELLBUTRIN-XL) tablet 150 mg, 150 mg, Oral, DAILY, Viktoriya Downs MD, 150 mg at | | 04/23/12 0951clopidogrel (aka PLAVIX) tablet 75 mg, 75 mg, Oral, DAILY, Viktoriya Starr | | MD Himanshu, 75 mg at 04/23/12 0951dextrose IV 25 mL, 25 mL, Intravenous, PRN, | | Viktoriya Downs MDenoxaparin (aka LOVENOX) injection 40 mg, 40 mg, Subcutaneous, | | QPM, Viktoriya Downs MD, 40 mg at 04/22/12 2117glucagon (aka GLUCAGEN) injection 1 | | mg, 1 mg, Intramuscular, PRN, Viktoriya Downs MDglucose chewable tablet 16 g, 16 | | g, Oral, Q15MIN PRN, Viktoriya Downs MDguar gum (aka BENEFIBER) oral powder 1 | | Packet, 1 Packet, Oral, DAILY PRN, Socorro Jarrell MDguar gum (aka BENEFIBER) oral | | powder 1 Packet, 1 Packet, Feeding Tube, DAILY PRN, Socorro Jarrell MDinsulin regular | | (aka HUMULIN R) injection 1-16 Units, 1-16 Units, Subcutaneous, MEALS and HS, Viktoriya Starr | | MD Himanshulidocaine (aka XYLOCAINE MPF) injection, , , , lisinopril (aka PRINIVIL) | | tablet 5 mg, 5 mg, Oral, DAILY, Viktoriya Downs MD, 5 mg at 04/23/12 | | 0951metoprolol tartrate (aka LOPRESSOR) tablet 25 mg, 25 mg, Oral, BID, Viktoriya Starr | | MD Himanshu, 25 mg at 04/23/12 0951morphine ER (aka MS CONTIN) tablet 60 mg, 60 mg, | | Oral, DAILY, Viktoriya Downs MDoxyCODONE (immediate release) (aka ROXICODONE) | | liquid 5-15 mg, 5-15 mg, Feeding Tube, Q3H PRN, Socorro Jarrell MDoxyCODONE (immediate | | release) (aka ROXICODONE) tablet 5-15 mg, 5-15 mg, Oral, Q3H PRN, Socorro Jarrell MD, | | 10 mg at 04/23/12 0950pneumococcal (23-valent) polysaccharide vaccine (aka PNEUMOVAX) | | injection 0.5 mL, 0.5 mL, Intramuscular, ONE TIME IN THE MORNING, Vera Cook, | | ,MPHpolyethylene glycol (aka MIRALAX) powder 17 g, 17 g, Oral, DAILY PRN, Socorro Genao | | MD Chrystal, 17 g at 04/23/12 1000polyethylene glycol (aka MIRALAX) powder 17 g, 17 g, | | Feeding Tube, DAILY PRN, Gumaro Sanchesenna-docusate (aka SENOKOT S) 8.6-50 mg 1 | | Tab, 1 Tab, Oral, BID, Socorro Jarrell MD, 1 Tab at 04/23/12 0952simethicone (aka | | MYLICON) suspension 80 mg, 80 mg, Feeding Tube, TID PRN, Gumaro Sanchesimethicone | | chew (aka MYLICON) tablet 80 mg, 80 mg, Oral, TID PRN, Socorro Jarrell MDwhite | | petrolatum-mineral oil (aka LACRILUBE) 83-15 % ophthalmic ointment, , Left Eye, HS, | | Vera Cook MD,MPHAll: Allergies Allergen Reactions | | Codeine Hives and Rash Review of Systems:Other than stated in the HPI and PMHx, the | | patient denied any fever, chills, abdominal pain, nausea, vomiting, diarrhea, YOST, vision | | changes, swollen lymph nodes, dizziness, mouth lesions, genital lesions or urinary | | symptoms, weight change, psychiatric changes, arthalgias or muscle aches, chest pain, | | weakness, or respiratory complaints.PE:BP 122/56 | Pulse 62 | Temp 36.9 C (98.4 F) | | | RR 18 | Ht 1.626 m (5' 4") | Wt 84.5 kg (186 lb 4.6 oz) | SpO2 95% | BMI 31.98 | | kg/(m^2)GEN-Well appearing, pleasant, no apparent distress. Normal mood and | | affect.Skin-A complete skin exam was performed including examination of the scalp, face, | | ears, lips, eyelids, neck, chest, abdomen, back, buttocks, bilateral arms, bilateral | | legs, hands, feet and were notable for the following:- Upper back, posterior neck, | | sacral area, central chest: Widespread flat-topped scaly erythematous papules coalescing | | into plaques with scattered excoriations- Palms: Scattered punctate small keratotic | | papules- Fingernails: Onychorrhexis but no characteristic findings of Darier'sPATH | | (2009):MICROSCOPIC DESCRIPTION: There are three punch specimens with similar findings of | | an intraepidermal vesicle with suprabasalar acantholysis and significant dyskeratotic | | keratinocytes and parakeratosis. DIAGNOSIS: FOCAL ACANTHOLYTIC DYSKERATOSIS CONSONANT | | WITH DARIER'S DISEASE x 3. NOTE: In this clinical scenario, DARIER'S DISEASE is most | | likely.ASSESSMENT/RECOMMENDATIONS:66 y/o female admitted 04/21 with multiple left cranial | | nerve palsies (CN V-VIII), currently undergoing workup by neurology with:Darier's | | disease. This is a genetic cutaneous disorder (Autosominal dominant, defect in Ca++ | | pump) consisting of warty papules and plaques on the skin with variable nail and mucosal | | findings. Darier's flares can be exacerbated by stress which would explain the recent | | worsening. It is doubtful that the patient's skin findings are related to her | | neurological issues.- Triamcinolone 0.1% ointment to affected area bid- She prefers to | | follow-up closer to her home in [place]; would f/u with a paste up artist there if not | | improved on topicalsPlease contact us with further questions. The patient was seen and | | examined with the attending physician. We discussed the recommendations listed | | above.Trevor Sosa M.D.Resident, [facility] [place] | | [place] Attending Physician Yemi personally interviewed, examined the | | patient, and discussed management with the resident. I reviewed and edited the | | resident's note and agree with the documented findings and plan of care. Khoa Lee | | MD Kaleb, PhDAssistant Professor, [facility] [place] | | [facility] DEPARTMENT: [id number] [facility] of Service:- Inpatient Date | | of Service: 04/23/2012 : [id number] Modifier: | | GC Resident Involved: GC Resident InvolvedSuggested CPT: 96382 - Initial, Detailed; Low | | complex 30 min | |GEN-Well appearing, pleasant, no apparent distress. Normal mood and affect. | |Skin-A complete skin exam was performed including examination of the scalp, face, ears, lip s, eyelids, neck, chest, abdomen, back, buttocks, bilateral arms, bilateral legs, hands, fee t and were notable for the following: | |- Upper back, posterior neck, sacral area, central chest: Widespread flat-topped scaly eryt hematous papules coalescing into plaques with scattered excoriations | |- Palms: Scattered punctate small keratotic papules | |- Fingernails: Onychorrhexis but no characteristic findings of Darier's | | | |PATH (2008): | |MICROSCOPIC DESCRIPTION: There are three punch specimens with similar findings of an intrae pidermal vesicle with suprabasalar acantholysis and significant dyskeratotic keratinocytes a nd parakeratosis. DIAGNOSIS: FOCAL | |ACANTHOLYTIC DYSKERATOSIS CONSONANT WITH DARIER'S DISEASE x 3. NOTE: In this clinical scena jin, DARIER'S DISEASE is most likely. 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 Darier's flares can be | |exacerbated by stress which would explain the recent worsening. It is doubtful that the fabio glass's skin findings are related to her neurological issues. | |- Triamcinolone 0.1% ointment to affected area bid | |- She prefers to follow-up closer to her home in [place]; would f/u with a paste up artist there if not improved on topicals | | | |Please contact us with further questions. The patient was seen and examined with the attend ing physician. We discussed the recommendations listed above. | | | | | |Trevor Sosa M.D. | |Resident, Department of Dermatology | |[facility] | | | |Attending Physician Attestation | |I personally interviewed, examined the patient, and discussed management with the resident. I reviewed and edited the resident's note and agree with the documented findings and plan of care. | | | | | |Khoa Manuel MD, PhD | |Occupational Therapist Aide, Department of Dermatology | |[facility] | | | |[facility] DEPARTMENT: [id number] [facility] | |Place of Service:[id number]- Inpatient | |Date of Service: 04/23/2012 | | | |CSN: [id number] | |Suggested Modifier: GC Resident Involved: GC Resident Involved | |Suggested CPT: 82808 - Initial, Detailed; Low complex 30 min | + + CAPILLARY BLOOD GLUCOSE (NO CHG), POC (04/23/2012 5:41 PM PST) + +-------+ + + + | Component | Value | Ref Range | Performed | Pathologist | | | | | At | Signature | + +-------+ + + + | BLOOD | 94 | 60 - 99 mg/dL | [facility] - | | | GLUCOSE, | | | [facility] | | | POC | | | [place] | | | | | | OF CARE | | | | | | TESTS | | + +-------+ + + + + + | Specimen | + + | | + + + + + + + | Performing | Address | City/State/Zipcode | Phone Number | | Organization | | | | + + + + + | [facility] | [address] | [place], [place] | | | [facility] | [address] | [phone] | | | TESTS | | | | + + + + + CT CHEST WO CONTRAST (04/23/2012 5:26 PM PST) + + + + + + | Component | Value | Ref Range | Performed | Pathologist | | | | | At | Signature | + + + + + + | CT CHEST WO | EXAM: Non contrast | | | | | CONTRAST | CHEST CT | | | | | | HISTORY:Evaluate for | | | | | | sarcoid. | | | | | | COMPARISON:Radiograph | | | | | | 03/12/11 TECHNIQUE: | | | | | | Overlapping 3-mm thick | | | | | | helical images were | | | | | | obtainedthru the chest. | | | | | | No intravenous contrast | | | | | | was administered. | | | | | | CoronalMPR | | | | | | reformations were | | | | | | obtained. FINDINGS: | | | | | | Sternotomy wires and | | | | | | changes from prior CABG | | | | | | are identified.Coronary | | | | | | artery and aortic | | | | | | atherosclerotic | | | | | | calcifications | | | | | | arepresent. No | | | | | | mediastinal, hilar, or | | | | | | axillary adenopathy. | | | | | | Nocalcified | | | | | | mediastinal lymph nodes. | | | | | | No pericardial or | | | | | | pleuraleffusion. 2-mm | | | | | | calcified granuloma is | | | | | | seen in the right upper | | | | | | lobe(image 77) a few | | | | | | scattered 2-3 mm | | | | | | subpleural pulmonary | | | | | | nodules areidentified | | | | | | which are likely | | | | | | inflammatory. Pleural | | | | | | parenchymalscarring is | | | | | | seen in the left lower | | | | | | lobe. Patchy groundglass | | | | | | andbudding tree | | | | | | nodularity in the right | | | | | | upper lobe. No | | | | | | pulmonary edemaor | | | | | | pneumothorax. Limited | | | | | | images of the upper | | | | | | abdomen show changes | | | | | | from prior gastricbypass | | | | | | surgery. Multilevel | | | | | | degenerative changes are | | | | | | seen in the thoracic | | | | | | spine. IMPRESSION: | | | | | | Groundglass and budding | | | | | | tree nodularity in the | | | | | | right upper lobe, | | | | | | mostconsistent with | | | | | | early developing | | | | | | bronchopneumonia. Single | | | | | | tiny right upper lobe | | | | | | granuloma, otherwise no | | | | | | findings tosuggest | | | | | | sarcoidosis. Attending | | | | | | Radiologists: Milagros | | | | | | Chey EstradaAuthor: Neo | | | | | | Chey Swenson I have | | | | | | personally viewed this | | | | | | procedure/exam, reviewed | | | | | | this report,and made | | | | | | changes to it where | | | | | | appropriate. | | | | | | Final/Electronically | | | | | | signed / Milagros | | | | | | Fuss 04/24/2012 9:53 AM | | | | | | | | | | + + + + + + + + | Specimen | + + | | + + + +---------+ + + | Performing | Address | City/State/Zipcode | Phone Number | | Organization | | | | + +---------+ + + | [facility] DEPARTMENT OF | | | | | RADIOLOGY | | | | + +---------+ + + C'4 COMPLEMENT, SERUM (04/23/2012 2:07 PM PST) + +-------+ + + + | Component | Value | Ref Range | Performed | Pathologist | | | | | At | Signature | + +-------+ + + + | C'4 | 31 | 16 - 47 mg/dL | [facility] - | | | COMPLEMENT | | | [facility] - | | | SERUM | | | [place] | | + +-------+ + + + + + | Specimen | + + | Blood - Blood | + + + + + + + | Performing | Address | City/State/Zipcode | Phone Number | | Organization | | | | + + + + + | [facility] | [address] | [place] [address] | | | [place] | | | | + + + + + C'3 COMPLEMENT, SERUM (04/23/2012 2:07 PM PST) + +-------+ + + + | Component | Value | Ref Range | Performed | Pathologist | | | | | At | Signature | + +-------+ + + + | C'3 | 124 | 88 - 201 mg/dL | [facility] - | | | COMPLEMENT | | | [facility] - | | | SERUM | | | [place] | | + +-------+ + + + + + | Specimen | + + | Blood - Blood | + + + + + + + | Performing | Address | City/State/Zipcode | Phone Number | | Organization | | | | + + + + + | [facility] | [address] | [place] [address] | | | [place] | | | | + + + + + ANTI NUCLEAR AB SCREEN, SERUM (04/23/2012 2:07 PM PST) + + + + + + | Component | Value | Ref Range | Performed | Pathologist | | | | | At | Signature | + + + + + + | MEHDI SCREEN | Positive (A) | Negative | [facility] - | | | ON HEP | | | [facility] - | | | 2,SERUM | | | [place] | | + + + + + + + + | Specimen | + + | Blood - Blood | + + + + + + + | Performing | Address | City/State/Zipcode | Phone Number | | Organization | | | | + + + + + | [facility] - | [address] | [place] [address] | | | [place] | | | | + + + + + CAPILLARY BLOOD GLUCOSE (NO CHG), POC (04/23/2012 1:40 PM PST) + +---------+ + + + | Component | Value | Ref Range | Performed | Pathologist | | | | | At | Signature | + +---------+ + + + | BLOOD | 113 (H) | 60 - 99 mg/dL | [facility] | | | GLUCOSE, | | | [facility] | | | POC | | | [facility] | | | | | | [facility]ARE | | | | | | TESTS | | + +---------+ + + + + + | Specimen | + + | | + + + + + + + | Performing | Address | City/State/Zipcode | Phone Number | | Organization | | | | + + + + + | [facility] | [address] | [place], [place] | | | [facility] | [address] | [address] | | | TESTS | | | | + + + + + ANTI-DS DNA (LEELEEFATMATA), SERUM (04/23/2012 11:20 AM PST) + + + + + + | Component | Value | Ref Range | Performed | Pathologist | | | | | At | Signature | + + + + + + | ANTI-DNA | Negative | Negative | [facility] - | | | ANTIBODY | | | [facility] - | | | | | | [place] | | + + + + + + + + | Specimen | + + | Blood - Blood | + + + + + + + | Performing | Address | City/State/Zipcode | Phone Number | | Organization | | | | + + + + + | [facility] - | [address] | [place] [address] | | | [place] | | | | + + + + + APT-MEHDI AB ON HEP 2, SER (04/23/2012 11:20 AM PST) + + + + + + | Component | Value | Ref Range | Performed | Pathologist | | | | | At | Signature | + + + + + + | MEHDI TITER | 1:40Comment: MEHDI titers | | [facility] - | | | | of 1:40 and 1:80 are | | [facility] - | | | | prevalent in the general | | [facility] | | | | population, and in most | | | | | | cases are not | | | | | | associated with | | | | | | autoimmune disease. MEHDI | | | | | | testing should only be | | | | | | ordered in patients with | | | | | | specific features of | | | | | | lupus, scleroderma, | | | | | | inflammatory myositis or | | | | | | Sjogrens. A low | | | | | | likelihood of these | | | | | | diseases with equivocal | | | | | | MEHDI testing is likely | | | | | | not indicative of | | | | | | autoimmune disease. | | | | + + + + + + | MEHDI PATTERN | Homogeneous (A) | | [facility] - | | | | | | [facility] - | | | | | | [place] | | + + + + + + + + | Specimen | + + | Blood - Blood | + + + + + + + | Performing | Address | City/State/Zipcode | Phone Number | | Organization | | | | + + + + + | [facility] - | [address] | [place] [address] | | | [place] | | | | + + + + + VITAMIN B-12, SERUM (04/23/2012 11:20 AM PST) + + + + + + | Component | Value | Ref Range | Performed | Pathologist | | | | | At | Signature | + + + + + + | VITAMIN | 594Comment: B12 <200: | 180 - 914 pg/mL | [facility] - | | | B12, SERUM | Severe deficiency. If | | [facility] - | | | | supplementation does not | | [place] | | | | correct consider | | | | | | further testing | | | | | | B12 <300: Deficiency | | | | | | likely. If | | | | | | supplementation does not | | | | | | correct, consider | | | | | | further | | | | | | testing B12 <400: | | | | | | Supplementation may be | | | | | | considered if | | | | | | [id number] >400: | | | | | | Deficiency unlikely B12 | | | | | | Deficiency can be | | | | | | confirmed with findings | | | | | | of increased MMA (>320 | | | | | | nmol/L) and increased | | | | | | homocysteine (>15 | | | | | | umol/L). Folate | | | | | | deficiency manifests | | | | | | with normal MMA but | | | | | | increased homocysteine. | | | | + + + + + + + + | Specimen | + + | Blood - Blood | + + + + + + + | Performing | Address | City/State/Zipcode | Phone Number | | Organization | | | | + + + + + | [facility] - | [address] | [place] [address] | | | [place] | | | | + + + + + LYME ABS TOTAL DAVID, SERUM (04/23/2012 11:20 AM PST) + + + + + + | Component | Value | Ref Range | Performed | Pathologist | | | | | At | Signature | + + + + + + | LYME AB | 0.19Comment: | 0.00 - 1.20 MAKAYLA | [facility] | | | DAVID, | INTERPRETIVE | | REG UNIV | | | SERUM | INFORMATION: Borrelia | | PTH - [facility] | | | | Burgdorferi Abs,Total by | | | | | | DAVID 0.99 MAKAYLA or | | | | | | Less: ...... Negative: | | | | | | Antibody to Borrelia | | | | | | | | | | | | burgdorferi | | | | | | not detected. 1.00 - | | | | | | 1.20 MAKAYLA......... | | | | | | Equivocal: Repeat | | | | | | testing in | | | | | | | | | | | | 10-14 days may be | | | | | | helpful. 1.21 MAKAYLA or | | | | | | Greater: ... Positive: | | | | | | Probable presence of | | | | | | | | | | | | antibody to | | | | | | Borrelia | | | | | | | | | | | | burgdorferi | | | | | | detected.Performed by | | | | | | [address] | | | | | | [address], [facility],[place] | | | | | | [address] | | | | | | [phone]. | | | | | | Alma matthews, | | | | | | Faisal WARE. Director | | | | + + + + + + + + | Specimen | + + | Blood - Blood | + + + + + + + | Performing | Address | City/State/Zipcode | Phone Number | | Organization | | | | + + + + + | [facility] | [address] | [place], [place] | | | UNIV PTH - [facility] | | [address] | | + + + + + FREE T4, SERUM (04/23/2012 11:20 AM PST) + +-------+ + + + | Component | Value | Ref Range | Performed | Pathologist | | | | | At | Signature | + +-------+ + + + | FREE T4, | 1.1 | 0.6 - 1.2 ng/dL | [facility] - | | | SERUM | | | [facility] - | | | | | | [place] | | + +-------+ + + + + + | Specimen | + + | Blood - Blood | + + + + + + + | Performing | Address | City/State/Zipcode | Phone Number | | Organization | | | | + + + + + | [facility] - | [address] | [place] [address] | | | [place] | | | | + + + + + TSH (04/23/2012 11:20 AM PST) + +-------+ + + + | Component | Value | Ref Range | Performed | Pathologist | | | | | At | Signature | + +-------+ + + + | TSH | 0.85 | 0.34 - 5.60 | [facility] - | | | | | mcIU/mL | [facility] - | | | | | | [place] | | + +-------+ + + + + + | Specimen | + + | Blood - Blood | + + + + + + + | Performing | Address | City/State/Zipcode | Phone Number | | Organization | | | | + + + + + | [facility] | [address] | [place] [address] | | | [place] | | | | + + + + + C-REACT PRTN (FOR INFLAMMATION) (04/23/2012 11:20 AM PST) + +-------+ + + + | Component | Value | Ref Range | Performed | Pathologist | | | | | At | Signature | + +-------+ + + + | C-REACTIVE | <0.5 | <=0.5 mg/dL | [facility] - | | | PROTEIN | | | [facility] - | | | | | | [place] | | + +-------+ + + + + + | Specimen | + + | Blood - Blood | + + + + + + + | Performing | Address | City/State/Zipcode | Phone Number | | Organization | | | | + + + + + | [facility] | [address] | [place] [address] | | | [place] | | | | + + + + + SEDIMENTATION RATE (04/23/2012 11:20 AM PST) + +-------+ + + + | Component | Value | Ref Range | Performed | Pathologist | | | | | At | Signature | + +-------+ + + + | SEDIMENTATI | 17 | 0 - 30 mm/hr | [facility] | | | ON RATE | | | LABORATORY | | | | | | SERVICES, | | | | | | CORE | | + +-------+ + + + + + | Specimen | + + | Blood - Blood | + + + + + + + | Performing | Address | City/State/Zipcode | Phone Number | | Organization | | | | + + + + + | [facility] | [address] | [place] [address] | | | SERVICES, CORE | [address] | | | + + + + + EUGENE ANTIBODIES IDENTIFICATION, SERUM (04/23/2012 11:20 AM PST) + + + + + + | Component | Value | Ref Range | Performed | Pathologist | | | | | At | Signature | + + + + + + | CENTROMERE | Negative | Negative | [facility] | | | AB | | | LABORATORY | | | | | | SERVICES, | | | | | | SPECIAL IMM | | | | | | + [place] | | + + + + + + | NUPUR-1 AB | Negative | Negative | [facility] | | | | | | LABORATORY | | | | | | SERVICES, | | | | | | SPECIAL IMM | | | | | | + [place] | | + + + + + + | NATURAL REMEDY CONSULTANT AB | Negative | Negative | [facility] | | | | | | LABORATORY | | | | | | SERVICES, | | | | | | SPECIAL IMM | | | | | | + [place] | | + + + + + + | SCL-70 AB | Negative | Negative | [facility] | | | | | | LABORATORY | | | | | | SERVICES, | | | | | | SPECIAL IMM | | | | | | + [place] | | + + + + + + | SM AB | Negative | Negative | [facility] | | | | | | LABORATORY | | | | | | SERVICES, | | | | | | SPECIAL IMM | | | | | | + [place] | | + + + + + + | SSA AB | Negative | Negative | [facility] | | | | | | LABORATORY | | | | | | SERVICES, | | | | | | SPECIAL IMM | | | | | | + [place] | | + + + + + + | SSB AB | Negative | Negative | [facility] | | | | | | LABORATORY | | | | | | SERVICES, | | | | | | SPECIAL IMM | | | | | | + [place] | | + + + + + + + + | Specimen | + + | Blood - Blood | + + + + + | Narrative | Performed At | + + + | Test Unit Negative Equivocal | [facility] | | Positive Abraham Centromere AB U/ml <7.0 7.0-10 | LABORATORY | | >10 Abraham Nupur-1 AB U/ml <7.0 7.0-10 | SERVICES, | | >10 Abraham NATURAL REMEDY CONSULTANT AB U/ml <5.0 5.0-10 | SPECIAL IMM + | | >10 Abraham Scl-70 U/ml <7.0 7.0-10 | COAG | | >10 Abraham Sm AB U/ml <5.0 | | | 5.0-10 >10 Abraham SSA AB U/ml <7.0 | | | 7.0-10 >10 Abraham SSB AB U/ml <7.0 | | | 7.0-10 >10 Test methodology and reference ranges have | | | changed. Correlate test interpretation with clinical symptoms. | | + + + + + + + + | Performing | Address | City/State/Zipcode | Phone Number | | Organization | | | | + + + + + | [facility] | [address] | [place] [address] | | | SERVICES, SPECIAL | [address] | | | | IMM + [place] | | | | + + + + + HIV-1,2 AB/HIV-1 P24 AG SCRN, SERUM (04/23/2012 11:20 AM PST) + + + + + + | Component | Value | Ref Range | Performed | Pathologist | | | | | At | Signature | + + + + + + | HIV-1,2 | Nonreactive | Nonreactive | [facility] | | | AB/HIV-1 | | | LABORATORY | | | P24 AG | | | SERVICES, | | | SCREEN | | | SPECIAL IMM | | | | | | + [place] | | + + + + + + + + | Specimen | + + | Blood - Blood | + + + + + | Narrative | Performed At | + + + | HIV-1 p24 Ag and HIV-1,2 Ab not detected. | [facility] | | | LABORATORY | | | SERVICES, | | | SPECIAL IMM + | | | [place] | + + + + + + + + | Performing | Address | City/State/Zipcode | Phone Number | | Organization | | | | + + + + + | [facility] | [address] | [place] [address] | | | SERVICES, SPECIAL | [address] | | | | IMM + [place] | | | | + + + + + CBC (04/23/2012 7:45 AM PST) + + + + + + | Component | Value | Ref Range | Performed | Pathologist | | | | | At | Signature | + + + + + + | WHITE CELL | 6.8 | 4.4 - 11.0 K/cu | [facility] | | | COUNT | | mm | LABORATORY | | | | | | SERVICES, | | | | | | CORE | | + + + + + + | RED CELL | 4.36 | 4.00 - 5.20 | [facility] | | | COUNT | | M/cu mm | LABORATORY | | | | | | SERVICES, | | | | | | CORE | | + + + + + + | HEMOGLOBIN | 12.9 | 12.0 - 16.0 | [facility] | | | | | g/dL | LABORATORY | | | | | | SERVICES, | | | | | | CORE | | + + + + + + | HEMATOCRIT | 38.8 | 36.0 - 46.0 % | [facility] | | | | | | LABORATORY | | | | | | SERVICES, | | | | | | CORE | | + + + + + + | MCV | 89.1 | 80.0 - 96.0 fL | [facility] | | | | | | LABORATORY | | | | | | SERVICES, | | | | | | CORE | | + + + + + + | MCHC | 33.1 (L) | 33.4 - 35.5 | [facility] | | | | | g/dL | LABORATORY | | | | | | SERVICES, | | | | | | CORE | | + + + + + + | RDW | 14.7 | 11.5 - 15.0 % | [facility] | | | | | | LABORATORY | | | | | | SERVICES, | | | | | | CORE | | + + + + + + | PLATELET | 209 | 150 - 400 K/cu | [facility] | | | COUNT | | mm | LABORATORY | | | | | | SERVICES, | | | | | | CORE | | + + + + + + + + | Specimen | + + | Blood - Blood | + + + + + + + | Performing | Address | City/State/Zipcode | Phone Number | | Organization | | | | + + + + + | [facility] | [address] | [place] [address] | | | SERVICES, CORE | [address] | | | + + + + + RENAL FUNCTION SET (NA,K,CL,CO2,BUN,CREAT,GLUC,CA,PHOS,ALB ) (04/23/2012 7:45 AM PST) + +---------+ + + + | Component | Value | Ref Range | Performed | Pathologist | | | | | At | Signature | + +---------+ + + + | GLUCOSE, | 109 (H) | 60 - 99 mg/dL | [facility] | | | PLASMA | | | LABORATORY | | | (LAB) | | | SERVICES, | | | | | | CORE | | + +---------+ + + + | BUN, PLASMA | 15 | 6 - 20 mg/dL | [facility] | | | (LAB) | | | LABORATORY | | | | | | SERVICES, | | | | | | CORE | | + +---------+ + + + | CREATININE | 0.80 | 0.60 - 1.10 | [facility] | | | PLASMA | | mg/dL | LABORATORY | | | (LAB) | | | SERVICES, | | | | | | CORE | | + +---------+ + + + | SODIUM, | 139 | 136 - 145 | [facility] | | | PLASMA | | mmol/L | LABORATORY | | | (LAB) | | | SERVICES, | | | | | | CORE | | + +---------+ + + + | POTASSIUM, | 4.0 | 3.4 - 5.0 | [facility] | | | PLASMA | | mmol/L | LABORATORY | | | (LAB) | | | SERVICES, | | | | | | CORE | | + +---------+ + + + | CHLORIDE, | 104 | 97 - 108 mmol/L | [facility] | | | PLASMA | | | LABORATORY | | | (LAB) | | | SERVICES, | | | | | | CORE | | + +---------+ + + + | TOTAL CO2, | 26 | 21 - 32 mmol/L | [facility] | | | PLASMA | | | LABORATORY | | | (LAB) | | | SERVICES, | | | | | | CORE | | + +---------+ + + + | CALCIUM, | 8.0 (L) | 8.6 - 10.2 | [facility] | | | PLASMA | | mg/dL | LABORATORY | | | (LAB) | | | SERVICES, | | | | | | CORE | | + +---------+ + + + | ALBUMIN, | 3.6 | 3.5 - 4.7 g/dL | [facility] | | | PLASMA | | | LABORATORY | | | (LAB) | | | SERVICES, | | | | | | CORE | | + +---------+ + + + | PHOSPHORUS, | 5.0 (H) | 2.4 - 4.7 mg/dL | [facility] | | | PLASMA | | | LABORATORY | | | (LAB) | | | SERVICES, | | | | | | CORE | | + +---------+ + + + | POTASSIUM | No Hemo | | [facility] | | | CMNT | | | LABORATORY | | | | | | SERVICES, | | | | | | CORE | | + +---------+ + + + | ANION GAP | 9 | 4 - 11 mmol/L | [facility] | | | | | | LABORATORY | | | | | | SERVICES, | | | | | | CORE | | + +---------+ + + + | ANION | 10 | 4 - 11 mmol/L | [facility] | | | GAP(ALB | | | LABORATORY | | | CORRECTED) | | | SERVICES, | | | | | | CORE | | + +---------+ + + + + + | Specimen | + + | Blood - Blood | + + + + + + + | Performing | Address | City/State/Zipcode | Phone Number | | Organization | | | | + + + + + | [facility] | [address] | [place] [address] | | | SERVICES, CORE | [address] | | | + + + + + INR (04/23/2012 7:45 AM PST) + +-------+ + + + | Component | Value | Ref Range | Performed | Pathologist | | | | | At | Signature | + +-------+ + + + | INR | 1.00 | 0.90 - 1.20 INR | [facility] | | | | | | LABORATORY | | | | | | SERVICES, | | | | | | CORE | | + +-------+ + + + + + | Specimen | + + | Blood - Blood | + + + + + | Narrative | Performed At | + + + | INR Therapeutic ranges for full anticoagulation: INR for | [facility] | | Venous Thromboembolism (2.0 - 3.0) INR INR for | LABORATORY | | most patients with mech. valves (2.5 - 3.5) INR | SERVICES, CORE | + + + + + + + + | Performing | Address | City/State/Zipcode | Phone Number | | Organization | | | | + + + + + | [facility] | [address] | [place] [address] | | | SERVICES, CORE | [address] | | | + + + + + CT CTA NECK WITH CONTRAST (04/22/2012 9:46 PM PST) + + + + + + | Component | Value | Ref Range | Performed | Pathologist | | | | | At | Signature | + + + + + + | CT CTA NECK | CT ANGIOGRAPHY OF NECK | | | | | W CONTRAST | AND HEAD, and | | | | | | noncontrast CT of the | | | | | | head04/22/12 | | | | | | 21:46:00INDICATION: Old | | | | | | dens fracture, multiple | | | | | | T2 FLAIR signals in | | | | | | brainstemand bilateral | | | | | | cortices, 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 TECHNIQUE: | | | | | | Noncontrast CT of the | | | | | | head was performed from | | | | | | the vertexto the base of | | | | | | the skull. Isovue 370 | | | | | | contrast was | | | | | | administeredintravenousl | | | | | | y by rapid injection. | | | | | | Using bolus tracking, | | | | | | multisliceaxial sections | | | | | | acquired in the | | | | | | arterial phase from the | | | | | | aortic arch tothe | | | | | | vertex. Image | | | | | | post-processing was then | | | | | | performed on | | | | | | anindependent | | | | | | workstation, creating | | | | | | multiplanar and/or 3D | | | | | | reformattedimages for | | | | | | comprehensive analysis | | | | | | and diagnosis. Any | | | | | | stenosisreported is | | | | | | calculated using the | | | | | | estimated diameter of | | | | | | the distalnormal vessel | | | | | | (e.g., ICA) in the | | | | | | denominator. FINDINGS: | | | | | | Aortic arch: No | | | | | | evidence of aneurysm. | | | | | | No significant | | | | | | stenosis orocclusion of | | | | | | major arch vessels. | | | | | | Left carotid system: | | | | | | Calcific atherosclerosis | | | | | | involves the | | | | | | carotidbulb without | | | | | | stenosis. No evidence of | | | | | | aneurysm, significant | | | | | | stenosis,or occlusion. | | | | | | Right carotid system: | | | | | | Calcific atherosclerosis | | | | | | involves the | | | | | | carotidbulb without | | | | | | stenosis. No evidence | | | | | | of aneurysm, | | | | | | significantstenosis, or | | | | | | occlusion. | | | | | | Vertebrobasilar | | | | | | system: Normal. No | | | | | | evidence of | | | | | | aneurysm,significant | | | | | | stenosis, or occlusion. | | | | | | Contrast: No areas of | | | | | | abnormal enhancement. | | | | | | CT Head: No | | | | | | hydrocephalus. No acute | | | | | | infarction. No | | | | | | hemmorhage.Patchy white | | | | | | matter hypodensities are | | | | | | noted, consistent with | | | | | | smallvessel ischemic | | | | | | change. Additional | | | | | | Comments: There is | | | | | | masslike enlargement | | | | | | with mixeddensity | | | | | | involving the right | | | | | | thyroid lobe. Multiple | | | | | | bilateralcervical lymph | | | | | | nodes are present | | | | | | however, none of these | | | | | | are enlargedby CT | | | | | | criteria. There is an | | | | | | unfused chronic Type 1 | | | | | | dens fracturewhich is | | | | | | minimally displaced | | | | | | posteriorly. The | | | | | | displaced dens tip | | | | | | andoverlying ligament | | | | | | contacts and mildly | | | | | | flattens the anterior | | | | | | cervicalmedullary cord. | | | | | | Degenerative changes | | | | | | otherwise are present | | | | | | atmultiple cervical | | | | | | levels. The spinal | | | | | | canal remains widely | | | | | | patent. IMPRESSION:1. | | | | | | No evidence of | | | | | | significant stenosis or | | | | | | occlusion involving | | | | | | theintracranial and | | | | | | cervical arteries.2. | | | | | | Masslike enlargement | | | | | | with heterogeneous | | | | | | density involving | | | | | | theright thyroid lobe. | | | | | | Additional imaging | | | | | | with thyroid ultrasound | | | | | | isrecommended.3. | | | | | | Chronic dens fracture | | | | | | with minimal | | | | | | displacement causing | | | | | | mild masseffect on the | | | | | | cervicomedullary | | | | | | junction. Attending | | | | | | Radiologists: Joseph Woodard | | | | | | SUE Haleuthor: STEVE | | | | | | MD GARETT I have | | | | | | personally viewed this | | | | | | procedure/exam, reviewed | | | | | | this report,and made | | | | | | changes to it where | | | | | | appropriate. | | | | | | Final/Electronically | | | | | | signed / Joseph Woodard | | | | | | Geoffrey 04/23/2012 11:28 | | | | | | AM Pending final | | | | | | approval / STEVE | | | | | | GARETT 04/23/2012 10:04 | | | | | | AM Preliminary / | | | | | | STEVE BAJWA 04/23/2012 | | | | | | 8:53 AM | | | | + + [...] | | | + +---------+ + + CT CTA HEAD WITH CONTRAST (04/22/2012 9:46 PM PST) + + + + + + | Component | Value | Ref Range | Performed | Pathologist | | | | | At | Signature | + + + + + + | CT CTA HEAD | CT ANGIOGRAPHY OF NECK | | | | | W CONTRAST | AND HEAD, and | | | | | | noncontrast CT of the | | | | | | head04/22/12 | | | | | | 21:46:00INDICATION: Old | | | | | | dens fracture, multiple | | | | | | T2 FLAIR signals in | | | | | | brainstemand bilateral | | | | | | cortices, 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 TECHNIQUE: | | | | | | Noncontrast CT of the | | | | | | head was performed from | | | | | | the vertexto the base of | | | | | | the skull. Isovue 370 | | | | | | contrast was | | | | | | administeredintravenousl | | | | | | y by rapid injection. | | | | | | Using bolus tracking, | | | | | | multisliceaxial sections | | | | | | acquired in the | | | | | | arterial phase from the | | | | | | aortic arch tothe | | | | | | vertex. Image | | | | | | post-processing was then | | | | | | performed on | | | | | | anindependent | | | | | | workstation, creating | | | | | | multiplanar and/or 3D | | | | | | reformattedimages for | | | | | | comprehensive analysis | | | | | | and diagnosis. Any | | | | | | stenosisreported is | | | | | | calculated using the | | | | | | estimated diameter of | | | | | | the distalnormal vessel | | | | | | (e.g., ICA) in the | | | | | | denominator. FINDINGS: | | | | | | Aortic arch: No | | | | | | evidence of aneurysm. | | | | | | No significant | | | | | | stenosis orocclusion of | | | | | | major arch vessels. | | | | | | Left carotid system: | | | | | | Calcific atherosclerosis | | | | | | involves the | | | | | | carotidbulb without | | | | | | stenosis. No evidence of | | | | | | aneurysm, significant | | | | | | stenosis,or occlusion. | | | | | | Right carotid system: | | | | | | Calcific atherosclerosis | | | | | | involves the | | | | | | carotidbulb without | | | | | | stenosis. No evidence | | | | | | of aneurysm, | | | | | | significantstenosis, or | | | | | | occlusion. | | | | | | Vertebrobasilar | | | | | | system: Normal. No | | | | | | evidence of | | | | | | aneurysm,significant | | | | | | stenosis, or occlusion. | | | | | | Contrast: No areas of | | | | | | abnormal enhancement. | | | | | | CT Head: No | | | | | | hydrocephalus. No acute | | | | | | infarction. No | | | | | | hemmorhage.Patchy white | | | | | | matter hypodensities are | | | | | | noted, consistent with | | | | | | smallvessel ischemic | | | | | | change. Additional | | | | | | Comments: There is | | | | | | masslike enlargement | | | | | | with mixeddensity | | | | | | involving the right | | | | | | thyroid lobe. Multiple | | | | | | bilateralcervical lymph | | | | | | nodes are present | | | | | | however, none of these | | | | | | are enlargedby CT | | | | | | criteria. There is an | | | | | | unfused chronic Type 1 | | | | | | dens fracturewhich is | | | | | | minimally displaced | | | | | | posteriorly. The | | | | | | displaced dens tip | | | | | | andoverlying ligament | | | | | | contacts and mildly | | | | | | flattens the anterior | | | | | | cervicalmedullary cord. | | | | | | Degenerative changes | | | | | | otherwise are present | | | | | | atmultiple cervical | | | | | | levels. The spinal | | | | | | canal remains widely | | | | | | patent. IMPRESSION:1. | | | | | | No evidence of | | | | | | significant stenosis or | | | | | | occlusion involving | | | | | | theintracranial and | | | | | | cervical arteries.2. | | | | | | Masslike enlargement | | | | | | with heterogeneous | | | | | | density involving | | | | | | theright thyroid lobe. | | | | | | Additional imaging | | | | | | with thyroid ultrasound | | | | | | isrecommended.3. | | | | | | Chronic dens fracture | | | | | | with minimal | | | | | | displacement causing | | | | | | mild masseffect on the | | | | | | cervicomedullary | | | | | | junction. Attending | | | | | | Radiologists: Joseph Woodard | | | | | | SUE Haleuthor: STEVE | | | | | | MD GARETT I have | | | | | | personally viewed this | | | | | | procedure/exam, reviewed | | | | | | this report,and made | | | | | | changes to it where | | | | | | appropriate. | | | | | | Final/Electronically | | | | | | signed / Joseph Woodard | | | | | | Geoffrey 04/23/2012 11:28 | | | | | | AM Pending final | | | | | | approval / STEVE | | | | | | GARETT 04/23/2012 10:04 | | | | | | AM Preliminary / | | | | | | STEVE BAJWA 04/23/2012 | | | | | | 8:53 AM | | | | + + [...] | | | + +---------+ + + CAPILLARY BLOOD GLUCOSE (NO CHG), POC (04/22/2012 9:30 PM PST) + +-------+ + + + | Component | Value | Ref Range | Performed | Pathologist | | | | | At | Signature | + +-------+ + + + | BLOOD | 83 | 60 - 99 mg/dL | [facility] | | | GLUCOSE, | | | [facility] | | | POC | | | [facility] | | | | | | OF CARE | | | | | | TESTS | | + +-------+ + + + + + | Specimen | + + | | + + + + + + + | Performing | Address | City/State/Zipcode | Phone Number | | Organization | | | | + + + + + | [facility] | [address] | [place], [place] | | | [place] N[place] | [facility] | [address] | | | TESTS | | | | + + + + + MRI BRAIN WWO CONTRAST (04/22/2012 6:19 PM PST) + + + + + + | Component | Value | Ref Range | Performed | Pathologist | | | | | At | Signature | + + + + + + | MR BRAIN | MRI BRAIN WITH AND | | | | | WWO | WITHOUT CONTRAST, | | | | | CONTRAST | 04/22/12 18:19:00. | | | | | | INDICATION: Stroke | | | | | | symptomsCOMPARISON: | | | | | | Outside MRI 04/20/12 | | | | | | TECHNIQUE: Multiplanar, | | | | | | multi-sequence MR | | | | | | imaging of the entire | | | | | | brainwas performed | | | | | | without and with 17 cc | | | | | | Omniscan intravenous | | | | | | gadoliniumcontrast. | | | | | | FINDINGS: | | | | | | Skull/Marrow/Soft | | | | | | tissues: Unremarkable | | | | | | Orbits/Optic nerves: | | | | | | Normal Sinuses: Clear | | | | | | Brain: No significant | | | | | | cerebral abnormality. | | | | | | Specifically, | | | | | | noevidence of | | | | | | hydrocephalus, neoplasm, | | | | | | infectious/inflammatory | | | | | | process,acute | | | | | | infarction, vascular | | | | | | lesion, or congenital | | | | | | abnormality. | | | | | | Patchycerebral white | | | | | | matter and pontine | | | | | | T2/flair hyperintensity | | | | | | isnonspecific but | | | | | | generally ascribed to | | | | | | sequelae of | | | | | | chronicmicrovascular | | | | | | ischemia. Enhancement: | | | | | | No abnormal | | | | | | enhancement. | | | | | | Additional Comments: | | | | | | None IMPRESSION: No | | | | | | acute intracranial | | | | | | abnormality. Mild | | | | | | chronic white matter | | | | | | smallvessel ischemic | | | | | | changes are stable from | | | | | | recent outside MRI | | | | | | performed04/20/12. | | | | | | Attending Radiologists: | | | | | | Joseph Hale, | | | | | | MDAuthor: Joseph Woodard | | | | | | MD Geoffrey I have | | | | | | personally viewed this | | | | | | procedure/exam, reviewed | | | | | | this report,and made | | | | | | changes to it where | | | | | | appropriate. | | | | | | Final/Electronically | | | | | | signed / Joseph Woodard | | | | | | Geoffrey 04/22/2012 18:26 | | | | | | PM [...] | | | + +---------+ + + CAPILLARY BLOOD GLUCOSE (NO CHG), POC (04/22/2012 6:17 PM PST) + +---------+ + + + | Component | Value | Ref Range | Performed | Pathologist | | | | | At | Signature | + +---------+ + + + | BLOOD | 102 (H) | 60 - 99 mg/dL | [facility] | | | GLUCOSE, | | | [facility] | | | POC | | | [facility] | | | | | | OF CARE | | | | | | TESTS | | + +---------+ + + + + + | Specimen | + + | | + + + + + + + | Performing | Address | City/State/Zipcode | Phone Number | | Organization | | | | + + + + + | [facility] | [address] | [place], [place] | | | MARLEEN NESBITT OF CARE | [address] | [address] | | | TESTS | | | | + + + + + X-RAY SPINE CERVICAL 2 VIEWS FLEXION/EXTENSION (04/22/2012 5:19 PM PST) + + + + + + | Component | Value | Ref Range | Performed | Pathologist | | | | | At | Signature | + + + + + + | SPINE | STUDY: SPINE CERVICAL 2 | | | | | CERVICAL 2 | VWS FLEX/EXT 04/22/12 | | | | | VIEW | 17:19:00 HISTORY: | | | | | FLEX/EXT | Ground-level fall | | | | | | FINDINGS: Bones of the | | | | | | cervical spine show no | | | | | | acute fracture, | | | | | | dislocation, | | | | | | oraggressive focal | | | | | | lytic/blastic lesion. | | | | | | A transversely | | | | | | orientedlucency with | | | | | | sclerotic margins at the | | | | | | base of the odontoid | | | | | | processmay potentially | | | | | | represent an old | | | | | | ununited fracture, but | | | | | | was visibleon previous | | | | | | CT dating back to 2009. | | | | | | Alignment is within | | | | | | normallimits on the | | | | | | extension view. There | | | | | | is 2 mm anterolisthesis | | | | | | of C2 onC3 and C4 on C5 | | | | | | on flexion view only. | | | | | | Alignment is | | | | | | otherwiseunremarkable. | | | | | | There are no findings | | | | | | to suggest | | | | | | atlantoaxialinstability. | | | | | | Moderate multilevel | | | | | | degenerative changes are | | | | | | presentwith loss of | | | | | | disk height and anterior | | | | | | osteophyte formation | | | | | | mostsignificant at | | | | | | C5/C6. Mild multilevel | | | | | | facet arthropathy is | | | | | | alsopresent. | | | | | | Prevertebral soft | | | | | | tissues are within | | | | | | normal limits | | | | | | andvisualized airway is | | | | | | patent. IMPRESSION: | | | | | | Multilevel degenerative | | | | | | changes most significant | | | | | | at C5/C6, withoutacute | | | | | | bony abnormality of the | | | | | | cervical spine visible. | | | | | | Minimal anterolisthesis | | | | | | of C2 on C3 and C4 on C5 | | | | | | during flexion | | | | | | only.Otherwise | | | | | | unremarkable alignment; | | | | | | no findings to suggest | | | | | | atlantoaxialinstability. 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 Attending | | | | | | Radiologists: Victoriano | | | | | | Chey SolorioAuthor: | | | | | | Victoriano Solorio M.D. I | | | | | | have personally viewed | | | | | | this procedure/exam, | | | | | | reviewed this report,and | | | | | | made changes to it | | | | | | where appropriate. | | | | | | Final/Electronically | | | | | | signed / Victoriano | | | | | | Lyndsey 04/23/2012 7:51 | | | | | | AM | | | | + + + + + + + + | Specimen | + + | | + + + +---------+ + + | Performing | Address | City/State/Zipcode | Phone Number | | Organization | | | | + +---------+ + + | [facility] DEPARTMENT OF | | | | | RADIOLOGY | | | | + +---------+ + + CAPILLARY BLOOD GLUCOSE (NO CHG), POC (04/22/2012 8:23 AM PST) + +-------+ + + + | Component | Value | Ref Range | Performed | Pathologist | | | | | At | Signature | + +-------+ + + + | BLOOD | 91 | 60 - 99 mg/dL | [facility] - | | | GLUCOSE, | | | [facility] | | | POC | | | [facility] | | | | | | OF CARE | | | | | | TESTS | | + +-------+ + + + + + | Specimen | + + | | + + + + + + + | Performing | Address | City/State/Zipcode | Phone Number | | Organization | | | | + + + + + | [facility] | [address] | [place], [place] | | | [facility] | [facility] | [address] | | | TESTS | | | | + + + + + RYAN WHITAKER (04/22/2012 6:45 AM PST) + + + + + + | Component | Value | Ref Range | Performed | Pathologist | | | | | At | Signature | + + + + + + | COLOR(UR) | Yellow | (none) | [facility] | | | | | | LABORATORY | | | | | | SERVICES, | | | | | | CORE | | + + + + + + | APPEARANCE | Sl.Cloudy | (none) | [facility] | | | | | | LABORATORY | | | | | | SERVICES, | | | | | | CORE | | + + + + + + | GLUCOSE(UR) | Negative | Negative, 50.0 | [facility] | | | | | mg/dL | LABORATORY | | | | | | SERVICES, | | | | | | CORE | | + + + + + + | PROTEIN(LAB | Negative | Negative, 30.0 | [facility] | | | ) | | mg/dL | LABORATORY | | | | | | SERVICES, | | | | | | CORE | | + + + + + + | BILIRUBIN | Negative | Negative | [facility] | | | | | | LABORATORY | | | | | | SERVICES, | | | | | | CORE | | + + + + + + | UROBILINOGE | <2.0 | <2.0 mg/dL | [facility] | | | N | | | LABORATORY | | | | | | SERVICES, | | | | | | CORE | | + + + + + + | PH(UR) | 7.0 | 5.0 - 8.0 | [facility] | | | | | | LABORATORY | | | | | | SERVICES, | | | | | | CORE | | + + + + + + | BLOOD | Negative | Negative | [facility] | | | | | | LABORATORY | | | | | | SERVICES, | | | | | | CORE | | + + + + + + | KETONES | Negative | Negative mg/dL | [facility] | | | | | | LABORATORY | | | | | | SERVICES, | | | | | | CORE | | + + + + + + | NITRITES | Negative | Negative | [facility] | | | | | | LABORATORY | | | | | | SERVICES, | | | | | | CORE | | + + + + + + | LEUKOCYTE | Negative | Negative | [facility] | | | ESTERASE | | | LABORATORY | | | | | | SERVICES, | | | | | | CORE | | + + + + + + | SPECIFIC | 1.008 | 1.005 - 1.030 | [facility] | | | GRAVITY | | | LABORATORY | | | | | | SERVICES, | | | | | | CORE | | + + + + + + + + | Specimen | + + | Urine - Urine | + + + + + + + | Performing | Address | City/State/Zipcode | Phone Number | | Organization | | | | + + + + + | [facility] | [address] | [place] [address] | | | SERVICES, CORE | [address] | | | + + + + + URINE, MICROSCOPIC EXAM (04/22/2012 6:45 AM PST) + +---------+ + + + | Component | Value | Ref Range | Performed | Pathologist | | | | | At | Signature | + +---------+ + + + | RED CELLS | 2 | 0 - 3 /hpf | [facility] | | | | | | LABORATORY | | | | | | SERVICES, | | | | | | CORE | | + +---------+ + + + | WHITE CELLS | 3 | 0 - 5 /hpf | [facility] | | | | | | LABORATORY | | | | | | SERVICES, | | | | | | CORE | | + +---------+ + + + | BACTERIA | None | None /hpf | [facility] | | | | | | LABORATORY | | | | | | SERVICES, | | | | | | CORE | | + +---------+ + + + | YEAST (LAB) | None | None /hpf | [facility] | | | | | | LABORATORY | | | | | | SERVICES, | | | | | | CORE | | + +---------+ + + + | SQUAMOUS | Few (A) | None /hpf | [facility] | | | EPITHELIAL | | | LABORATORY | | | | | | SERVICES, | | | | | | CORE | | + +---------+ + + + | MUCOUS | None | None /hpf | [facility] | | | | | | LABORATORY | | | | | | SERVICES, | | | | | | CORE | | + +---------+ + + + | TRICHOMONAS | None | None /hpf | [facility] | | | | | | LABORATORY | | | | | | SERVICES, | | | | | | CORE | | + +---------+ + + + | NON-SQUAMOU | Few (A) | None /hpf | [facility] | | | S EPITH | | | LABORATORY | | | | | | SERVICES, | | | | | | CORE | | + +---------+ + + + | HYALINE | 0 | 0 - 2 /lpf | [facility] | | | CASTS | | | LABORATORY | | | | | | SERVICES, | | | | | | CORE | | + +---------+ + + + | GRANULAR | 0 | 0 - 2 /lpf | [facility] | | | CASTS | | | LABORATORY | | | | | | SERVICES, | | | | | | CORE | | + +---------+ + + + | CELLULAR | 0 | <=0 /lpf | [facility] | | | CASTS | | | LABORATORY | | | | | | SERVICES, | | | | | | CORE | | + +---------+ + + + | TRIPLE P04 | None | None /hpf | [facility] | | | CRYSTALS | | | LABORATORY | | | | | | SERVICES, | | | | | | CORE | | + +---------+ + + + | CALCIUM | None | None /hpf | [facility] | | | OXALATE | | | LABORATORY | | | SUSAN | | | SERVICES, | | | | | | CORE | | + +---------+ + + + | URIC ACID | None | None /hpf | [facility] | | | CRYSTALS | | | LABORATORY | | | | | | SERVICES, | | | | | | CORE | | + +---------+ + + + | AMORPHOUS | None | None /hpf | [facility] | | | CRYSTALS | | | LABORATORY | | | | | | SERVICES, | | | | | | CORE | | + +---------+ + + + + + | Specimen | + + | Urine - Urine | + + + + + + + | Performing | Address | City/State/Zipcode | Phone Number | | Organization | | | | + + + + + | [facility] | [address] | [place] [address] | | | SERVICES, CORE | [address] | | | + + + + + CULTURE, URINE BACTI (04/22/2012 12:42 AM PST) + + + + + + | Component | Value | Ref Range | Performed | Pathologist | | | | | At | Signature | + + + + + + | CULTURE | C UrineSource: U | | [facility] - | | | RESULT | Midstream | | [facility] - | | | | Final | | [place] | | | | CULTURE RESULT:Multiple | | | | | | organisms are present | | | | | | indicating probable | | | | | | contamination or | | | | | | colonization not related | | | | | | to infection. Further | | | | | | work-up of these | | | | | | organisms may result in | | | | | | clinically misleading | | | | | | information due to the | | | | | | low numbers and /or | | | | | | mixture of organisms | | | | | | present. Recollection is | | | | | | suggested if clinically | | | | | | indicated. | | | | + + + + + + + + | Specimen | + + | Urine - Urine | + + + + + + + | Performing | Address | City/State/Zipcode | Phone Number | | Organization | | | | + + + + + | [facility] | [address] | [place] [address] | | | [place] | | | | + + + + + URINE SCREEN FOR CULTURE (04/22/2012 12:42 AM PST) + + + + + + | Component | Value | Ref Range | Performed | Pathologist | | | | | At | Signature | + + + + + + | URINE | Positive (A) | Negative | [facility] | | | SCREEN FOR | | | LABORATORY | | | CULTURE | | | SERVICES, | | | | | | CORE | | + + + + + + + + | Specimen | + + | Urine - Urine | + + + + + | Narrative | Performed At | + + + | Culture Screen Positive, specimen sent for culture. | [facility] | | | LABORATORY | | | [facility] | + + + + + + + + | Performing | Address | City/State/Zipcode | Phone Number | | Organization | | | | + + + + + | [facility] | [address] | [place] [address] | | | SERVICES, BLU | [address] | | | + + + + + CAPILLARY BLOOD GLUCOSE (NO CHG), POC (04/21/2012 10:04 PM PST) + +---------+ + + + | Component | Value | Ref Range | Performed | Pathologist | | | | | At | Signature | + +---------+ + + + | BLOOD | 127 (H) | 60 - 99 mg/dL | [facility] - | | | GLUCOSE, | | | [facility] | | | POC | | | [facility] | | | | | | OF CARE | | | | | | TESTS | | + +---------+ + + + + + | Specimen | + + | | + + + + + + + | Performing | Address | City/State/Zipcode | Phone Number | | Organization | | | | + + + + + | [facility] | [address] | [place], [place] | | | [facility] | [address] | [address] | | | TESTS | | | | + + + + + CBC (04/21/2012 9:51 PM PST) + + + + + + | Component | Value | Ref Range | Performed | Pathologist | | | | | At | Signature | + + + + + + | WHITE CELL | 6.7 | 4.4 - 11.0 K/cu | [facility] | | | COUNT | | mm | LABORATORY | | | | | | SERVICES, | | | | | | CORE | | + + + + + + | RED CELL | 4.05 | 4.00 - 5.20 | [facility] | | | COUNT | | M/cu mm | LABORATORY | | | | | | SERVICES, | | | | | | CORE | | + + + + + + | HEMOGLOBIN | 12.0 | 12.0 - 16.0 | [facility] | | | | | g/dL | LABORATORY | | | | | | SERVICES, | | | | | | CORE | | + + + + + + | HEMATOCRIT | 36.5 | 36.0 - 46.0 % | [facility] | | | | | | LABORATORY | | | | | | SERVICES, | | | | | | CORE | | + + + + + + | MCV | 90.1 | 80.0 - 96.0 fL | [facility] | | | | | | LABORATORY | | | | | | SERVICES, | | | | | | CORE | | + + + + + + | MCHC | 33.0 (L) | 33.4 - 35.5 | [facility] | | | | | g/dL | LABORATORY | | | | | | SERVICES, | | | | | | CORE | | + + + + + + | RDW | 14.5 | 11.5 - 15.0 % | [facility] | | | | | | LABORATORY | | | | | | SERVICES, | | | | | | CORE | | + + + + + + | PLATELET | 202 | 150 - 400 K/cu | [facility] | | | COUNT | | mm | LABORATORY | | | | | | SERVICES, | | | | | | CORE | | + + + + + + + + | Specimen | + + | Blood - Blood | + + + + + + + | Performing | Address | City/State/Zipcode | Phone Number | | Organization | | | | + + + + + | [facility] | [address] | [place] [address] | | | SERVICES, CORE | [address] | | | + + + + + ANTIBODY SCREEN (04/21/2012 9:51 PM PST) + + + + + + | Component | Value | Ref Range | Performed | Pathologist | | | | | At | Signature | + + + + + + | Antibody | Negative | | [facility] | | | Screen | | | LABORATORY | | | | | | SERVICES, | | | | | | TRANSFUSION | | | | | | MEDICINE | | + + + + + + + + | Specimen | + + | Blood - Blood | + + + + + + + | Performing | Address | City/State/Zipcode | Phone Number | | Organization | | | | + + + + + | [facility] | [address] | [place] [address] | | | SERVICES, | [address] | | | | TRANSFUSION MEDICINE | | | | + + + + + ABO & RH TYPE (04/21/2012 9:51 PM PST) + + + + + + | Component | Value | Ref Range | Performed | Pathologist | | | | | At | Signature | + + + + + + | ABO Group | O | | [facility] | | | | | | LABORATORY | | | | | | SERVICES, | | | | | | TRANSFUSION | | | | | | MEDICINE | | + + + + + + | Rh Type | Positive | | [facility] | | | | | | LABORATORY | | | | | | SERVICES, | | | | | | TRANSFUSION | | | | | | MEDICINE | | + + + + + + + + | Specimen | + + | Blood - Blood | + + + + + + + | Performing | Address | City/State/Zipcode | Phone Number | | Organization | | | | + + + + + | [facility] | [address] | [place] [address] | | | SERVICES, | [address] | | | | TRANSFUSION MEDICINE | | | | + + + + + INR (04/21/2012 9:51 PM PST) + +-------+ + + + | Component | Value | Ref Range | Performed | Pathologist | | | | | At | Signature | + +-------+ + + + | INR | 1.00 | 0.90 - 1.20 INR | [facility] | | | | | | LABORATORY | | | | | | SERVICES, | | | | | | CORE | | + +-------+ + + + + + | Specimen | + + | Blood - Blood | + + + + + | Narrative | Performed At | + + + | INR Therapeutic ranges for full anticoagulation: INR for | [facility] | | Venous Thromboembolism (2.0 - 3.0) INR INR for | LABORATORY | | most patients with mech. valves (2.5 - 3.5) INR | [facility] | + + + + + + + + | Performing | Address | City/State/Zipcode | Phone Number | | Organization | | | | + + + + + | [facility] | [address] | [place] [address] | | | SERVICESBLU | [address] | | | + + + + + MAGNESIUM, PLASMA (04/21/2012 9:51 PM PST) + +-------+ + + + | Component | Value | Ref Range | Performed | Pathologist | | | | | At | Signature | + +-------+ + + + | MAGNESIUM,P | 2.0 | 1.8 - 2.5 mg/dL | [facility] | | | LASMA | | | LABORATORY | | | | | | SERVICES, | | | | | | CORE | | + +-------+ + + + + + | Specimen | + + | Blood - Blood | + + + + + + + | Performing | Address | City/State/Zipcode | Phone Number | | Organization | | | | + + + + + | [facility] | [address] | [place] [address] | | | SERVICES, CORE | [address] | | | + + + + + COMPLETE METABOLIC SET (NA,K,CL,CO2,BUN,CREAT,GLUC,CA,AST,ALT,BILI TOTAL,ALK PHOS,ALB,PROT TOTAL) (04/21/2012 9:51 PM PST) + +---------+ + + + | Component | Value | Ref Range | Performed | Pathologist | | | | | At | Signature | + +---------+ + + + | GLUCOSE, | 109 (H) | 60 - 99 mg/dL | [facility] | | | PLASMA | | | LABORATORY | | | (LAB) | | | SERVICES, | | | | | | CORE | | + +---------+ + + + | BUN, PLASMA | 11 | 6 - 20 mg/dL | [facility] | | | (LAB) | | | LABORATORY | | | | | | SERVICES, | | | | | | CORE | | + +---------+ + + + | CREATININE | 0.66 | 0.60 - 1.10 | [facility] | | | PLASMA | | mg/dL | LABORATORY | | | (LAB) | | | SERVICES, | | | | | | CORE | | + +---------+ + + + | SODIUM, | 140 | 136 - 145 | [facility] | | | PLASMA | | mmol/L | LABORATORY | | | (LAB) | | | SERVICES, | | | | | | CORE | | + +---------+ + + + | POTASSIUM, | 4.0 | 3.4 - 5.0 | [facility] | | | PLASMA | | mmol/L | LABORATORY | | | (LAB) | | | SERVICES, | | | | | | CORE | | + +---------+ + + + | CHLORIDE, | 105 | 97 - 108 mmol/L | [facility] | | | PLASMA | | | LABORATORY | | | (LAB) | | | SERVICES, | | | | | | CORE | | + +---------+ + + + | TOTAL CO2, | 29 | 21 - 32 mmol/L | [facility] | | | PLASMA | | | LABORATORY | | | (LAB) | | | SERVICES, | | | | | | CORE | | + +---------+ + + + | CALCIUM, | 7.7 (L) | 8.6 - 10.2 | [facility] | | | PLASMA | | mg/dL | LABORATORY | | | (LAB) | | | SERVICES, | | | | | | CORE | | + +---------+ + + + | BILIRUBIN | 0.4 | 0.3 - 1.2 mg/dL | [facility] | | | TOTAL | | | LABORATORY | | | | | | SERVICES, | | | | | | CORE | | + +---------+ + + + | TOTAL | 6.8 | 6.1 - 7.9 g/dL | [facility] | | | PROTEIN, | | | LABORATORY | | | PLASMA | | | SERVICES, | | | (LAB) | | | CORE | | + +---------+ + + + | ALBUMIN, | 3.3 (L) | 3.5 - 4.7 g/dL | [facility] | | | PLASMA | | | LABORATORY | | | (LAB) | | | SERVICES, | | | | | | CORE | | + +---------+ + + + | ALK PHOS | 135 | 53 - 141 U/L | [facility] | | | | | | LABORATORY | | | | | | SERVICES, | | | | | | CORE | | + +---------+ + + + | AST(SGOT) | 80 (H) | 15 - 41 U/L | [facility] | | | | | | LABORATORY | | | | | | SERVICES, | | | | | | CORE | | + +---------+ + + + | ALT (SGPT) | 112 (H) | 12 - 60 U/L | [facility] | | | | | | LABORATORY | | | | | | SERVICES, | | | | | | CORE | | + +---------+ + + + | ANION | 7 | 4 - 11 mmol/L | [facility] | | | GAP(ALB | | | LABORATORY | | | CORRECTED) | | | SERVICES, | | | | | | CORE | | + +---------+ + + + | POTASSIUM | No Hemo | | [facility] | | | CMNT | | | LABORATORY | | | | | | SERVICES, | | | | | | CORE | | + +---------+ + + + | BILI T CMNT | No Hemo | | [facility] | | | | | | LABORATORY | | | | | | SERVICES, | | | | | | CORE | | + +---------+ + + + | AST CMNT | No Hemo | | [facility] | | | | | | LABORATORY | | | | | | SERVICES, | | | | | | CORE | | + +---------+ + + + | ANION GAP | 6 | 4 - 11 mmol/L | [facility] | | | | | | LABORATORY | | | | | | SERVICES, | | | | | | CORE | | + +---------+ + + + + + | Specimen | + + | Blood - Blood | + + + + + + + | Performing | Address | City/State/Zipcode | Phone Number | | Organization | | | | + + + + + | [facility] | [address] | [place] [address] | | | SERVICES, CORE | [address] | | | + + + + + documented in this encounter Visit Diagnoses + + | Diagnosis | + + | Cervical spine fracture (HCC) - Primary Closed fracture of cervical vertebra, | | unspecified level without mention of spinal cord injury | + + documented in this encounter Administered Medications + +--------+ +--------+------+------+ | Medication Order | MAR | Action | Dose | Rate | Site | | | Action | Date | | | | + +--------+ +--------+------+------+ | acetaminophen (aka TYLENOL) | Given | 04/24/19 | 650 mg | | | | tablet 325-650 mg 325-650 mg, | | 13 11:08 | | | | | oral, EVERY 6 HOURS NEEDED, | | AM PST | | | | | Starting 04/21/12 at 2150, | | | | | | | Until Fri04/24/12 at 1731, mild | | | | | | | pain, fever | | | | | | + +--------+ +--------+------+------+ +-------+ +--------+---+---+ | Given | 04/24/19 | 650 mg | | | | | 13 4:01 | | | | | | AM PST | | | | +-------+ +--------+---+---+ | Given | 04/23/19 | 650 mg | | | | | 13 3:50 | | | | | | PM PST | | | | +-------+ +--------+---+---+ +---+---+ | | | +---+---+ + +-------+ +-------+---+---+ | bisacodyl (aka DULCOLAX) | Given | 04/23/19 | 10 mg | | | | suppository 10 mg 10 mg, rectal, | | 13 6:43 | | | | | TWICE DAILY NEEDED, Starting | | PM PST | | | | | 04/21/12 at 2150, Until Fri | | | | | | | 04/24/12 at 1731, constipation, No | | | | | | | BM in past 3 days | | | | | | + +-------+ +-------+---+---+ +---+---+ | | | +---+---+ + +-------+ +------+---+---+ | bumetanide (aka BUMEX) tablet 1 | Given | 04/24/19 | 1 mg | | | | mg 1 mg, oral, DAILY, First | | 13 9:01 | | | | | dose on 04/22/12 at 1030, | | AM PST | | | | | Until Discontinued | | | | | | + +-------+ +------+---+---+ +-------+ +------+---+---+ | Given | 04/23/19 | 1 mg | | | | | 13 9:51 | | | | | | AM PST | | | | +-------+ +------+---+---+ | Given | 04/22/19 | 1 mg | | | | | 13 10:44 | | | | | | AM PST | | | | +-------+ +------+---+---+ +---+---+ | | | +---+---+ + +-------+ +--------+---+---+ | buPROPion XL (aka | Given | 04/24/19 | 150 mg | | | | WELLBUTRIN-XL) tablet 150 mg 150 | | 13 9:01 | | | | | mg, oral, DAILY, First dose on | | AM PST | | | | | 04/22/12 at 1345, Until | | | | | | | Discontinued | | | | | | + +-------+ +--------+---+---+ +-------+ +--------+---+---+ | Given | 04/23/19 | 150 mg | | | | | 13 9:51 | | | | | | AM PST | | | | +-------+ +--------+---+---+ | Given | 04/22/19 | 150 mg | | | | | 13 12:46 | | | | | | PM PST | | | | +-------+ +--------+---+---+ +---+---+ | | | +---+---+ + +---------+ +-----+--------+---+ | calcium gluconate IV 1 gram | New Bag | 04/22/19 | 1 g | mL/hr | | | (ICU, Pyxis) 1 g, intravenous, | | 13 6:19 | | | | | ONCE, 1 dose, Fri04/22/12 at 0700 | | AM PST | | | | + +---------+ +-----+--------+---+ +---+---+ | | | +---+---+ + +-------+ +-------+---+---+ | clopidogrel (aka PLAVIX) tablet | Given | 04/23/19 | 75 mg | | | | 75 mg 75 mg, oral, DAILY, First | | 13 9:51 | | | | | dose on Fri04/22/12 at 1100, | | AM PST | | | | | Until Discontinued | | | | | | + +-------+ +-------+---+---+ +-------+ +-------+---+---+ | Given | 04/22/19 | 75 mg | | | | | 13 12:49 | | | | | | PM PST | | | | +-------+ +-------+---+---+ +---+---+ | | | +---+---+ + +-------+ +-------+---+---+ | enoxaparin (aka LOVENOX) | Given | 04/23/19 | 40 mg | | | | injection 40 mg 40 mg, | | 13 8:39 | | | | | subcutaneous, EVERY EVENING, | | PM PST | | | | | First dose on Fri04/22/12 at | | | | | | | 2100, Until Discontinued | | | | | | + +-------+ +-------+---+---+ +-------+ +-------+---+---+ | Given | 04/22/19 | 40 mg | | | | | 13 9:17 | | | | | | PM PST | | | | +-------+ +-------+---+---+ +---+---+ | | | +---+---+ + +---------+ +--------+--------+---+ | fentaNYL citrate (PF) (aka | New Bag | 04/22/19 | 25 mcg | mL/hr | | | SUBLIMAZE) injection 25 mcg 25 | | 13 4:30 | | | | | mcg, intravenous, ONCE, 1 dose, | | PM PST | | | | | 04/22/12 at 1645 | | | | | | + +---------+ +--------+--------+---+ +---+---+ | | | +---+---+ + +---------+ +--------+--------+---+ | fentaNYL citrate (PF) (aka | New Bag | 04/22/19 | 25 mcg | mL/hr | | | SUBLIMAZE) injection 50-100 mcg | | 13 6:31 | | | | | 50-100 mcg, intravenous, EVERY 1 | | AM PST | | | | | HOUR NEEDED, Starting Tue | | | | | | | 04/21/12 at 2150, Until Fri | | | | | | | 04/22/12 at 1134, moderate pain, | | | | | | | severe pain | | | | | | + +---------+ +--------+--------+---+ +---+---+ | | | +---+---+ + +---------+ +-------+--------+---+ | gadodiamide (aka OMNISCAN) IV | New Bag | 04/22/19 | 17 mL | mL/hr | | | 17 mL 17 mL, intravenous, | | 13 5:36 | | | | | PROCEDURE ONCE, 1 dose, Wed | | PM PST | | | | | 04/22/12 at 1745 | | | | | | + +---------+ +-------+--------+---+ +---+---+ | | | +---+---+ + +---------+ +-------+--------+---+ | iopamidol (aka ISOVUE-370) | New Bag | 04/22/19 | 50 mL | mL/hr | | | injection 50 mL 50 mL, | | 13 10:10 | | | | | intravenous, PROCEDURE ONCE, 1 | | PM PST | | | | | dose, 04/22/12 at 2215 | | | | | | + +---------+ +-------+--------+---+ +---+---+ | | | +---+---+ + +-------+ +------+---+---+ | lisinopril (aka PRINIVIL) | Given | 04/24/19 | 5 mg | | | | tablet 5 mg 5 mg, oral, DAILY, | | 13 9:01 | | | | | First dose on Fri04/22/12 at | | AM PST | | | | | 1030, Until Discontinued | | | | | | + +-------+ +------+---+---+ +-------+ +------+---+---+ | Given | 04/23/19 | 5 mg | | | | | 13 9:51 | | | | | | AM PST | | | | +-------+ +------+---+---+ | Given | 04/22/19 | 5 mg | | | | | 13 10:29 | | | | | | AM PST | | | | +-------+ +------+---+---+ +---+---+ | | | +---+---+ + +-------+ +-------+---+---+ | metoprolol tartrate (aka | Given | 04/24/19 | 25 mg | | | | LOPRESSOR) tablet 25 mg 25 mg, | | 13 9:01 | | | | | oral, TWICE DAILY, First dose on | | AM PST | | | | | 04/22/12 at 0900, Until | | | | | | | Discontinued | | | | | | + +-------+ +-------+---+---+ +-------+ +-------+---+---+ | Given | 04/23/19 | 25 mg | | | | | 13 8:39 | | | | | | PM PST | | | | +-------+ +-------+---+---+ | Given | 04/23/19 | 25 mg | | | | | 13 9:51 | | | | | | AM PST | | | | +-------+ +-------+---+---+ +---+---+ | | | +---+---+ + +---------+ + + +---+ | NaCl 0.9%-KCl 20 mEq/L IV | New Bag | 04/21/19 | 1,000 mL | 75 mL/hr | | | infusion intravenous, | | 13 10:11 | | | | | CONTINUOUS, Starting 04/21/12 | | PM PST | | | | | at 2200, Until 04/22/12 at | | | | | | | 1010, at 0-100 mL/hr | | | | | | + +---------+ + + +---+ +---+---+ | | | +---+---+ + +-------+ +-------+---+---+ | oxyCODONE (immediate release) | Given | 04/24/19 | 10 mg | | | | (aka ROXICODONE) tablet 5-15 mg | | 13 11:08 | | | | | 5-15 mg, oral, EVERY 3 HOURS | | AM PST | | | | | NEEDED, Starting 04/21/12 at | | | | | | | 2150, Until 04/24/12 at 1731, | | | | | | | severe pain | | | | | | + +-------+ +-------+---+---+ +-------+ +-------+---+---+ | Given | 04/24/19 | 5 mg | | | | | 13 4:01 | | | | | | AM PST | | | | +-------+ +-------+---+---+ | Given | 04/23/19 | 10 mg | | | | | 13 3:50 | | | | | | PM PST | | | | +-------+ +-------+---+---+ +---+---+ | | | +---+---+ + +-------+ +--------+---+--------+ | pneumococcal (23-valent) | Given | 04/24/19 | 0.5 mL | | Right | | polysaccharide vaccine (aka | | 13 9:05 | | | Arm | | PNEUMOVAX) injection 0.5 mL 0.5 | | AM PST | | | | | mL, intramuscular, ONE TIME IN | | | | | | | THE MORNING, 1 dose, First dose | | | | | | | on 04/24/12 at 0900 | | | | | | + +-------+ +--------+---+--------+ +---+---+ | | | +---+---+ + +-------+ +------+---+---+ | polyethylene glycol (aka | Given | 04/23/19 | 17 g | | | | MIRALAX) powder 17 g 17 g, oral, | | 13 10:00 | | | | | DAILY NEEDED, Starting Tue | | AM PST | | | | | 04/21/12 at 2150, Until Fri | | | | | | | 04/24/12 at 1731, constipation, No | | | | | | | BM in past 3 days | | | | | | + +-------+ +------+---+---+ +---+---+ | | | +---+---+ + +-------+ + +---+---+ | senna-docusate (aka ARLYN S) | Given | 04/24/19 | 1 tablet | | | | 8.6-50 mg 1 Tab 1 tablet, oral, | | 13 9:00 | | | | | TWICE DAILY, First dose on Fri | | AM PST | | | | | 04/21/12 at 2200, Until | | | | | | | Discontinued | | | | | | + +-------+ + +---+---+ +-------+ + +---+---+ | Given | 04/23/19 | 1 tablet | | | | | 13 8:39 | | | | | | PM PST | | | | +-------+ + +---+---+ | Given | 04/23/19 | 1 tablet | | | | | 13 9:52 | | | | | | AM PST | | | | +-------+ + +---+---+ +---+---+ | | | +---+---+ + +-------+ +---+---+---+ | triamcinolone acetonide (aka | Given | 04/24/19 | | | | | KENALOG) 0.1 % ointment topical, | | 13 9:02 | | | | | TWICE DAILY, First dose on Fri | | AM PST | | | | | 04/23/12 at 2100, Until | | | | | | | Discontinued | | | | | | + +-------+ +---+---+---+ +-------+ +---+---+---+ | Given | 04/24/19 | | | | | | 13 4:33 | | | | | | AM PST | | | | +-------+ +---+---+---+ | Given | 04/23/19 | | | | | | 13 8:45 | | | | | | PM PST | | | | +-------+ +---+---+---+ +---+---+ | | | +---+---+ + +-------+ +---+---+---+ | white petrolatum-mineral oil | Given | 04/24/19 | | | | | (aka LACRILUBE) 83-15 % | | 13 7:04 | | | | | ophthalmic ointment Left Eye, AT | | AM PST | | | | | BEDTIME, First dose on Fri | | | | | | | 04/23/12 at 2200, Until | | | | | | | Discontinued | | | | | | + +-------+ +---+---+---+ +-------+ +---+---+---+ | Given | 04/23/19 | | | | | | 13 9:05 | | | | | | PM PST | | | | +-------+ +---+---+---+ +---+---+ | | | +---+---+ documented in this encounter
--- OUTSIDE RECORDS SUMMARY | ~2019-01-13 | XMS | Encounter Summary ---
Demographics + + + | [address] | [address] | | | [place] [address] | + + + | Home Phone | | + + + | Preferred Language | Unknown | + + + | Marital Status | | + + + | Restorationist Affiliation | PRO | + + + | Race | White | + + + | Ethnic Group | Not or | + + + Author + + + | Author | [facility] | + + + | Organization | [facility] | + + + | Address | Unknown | + + + | Phone | Unavailable | + + + Support + + + + + | Name | Relationship | Address | Phone | + + + + + | Hector Mack | ECON | [address] | | | | | [place] | | | | | [address] | | + + + + + Care Team Providers + +------+ + | Care Freight Sorter Name | Role | Phone | + [...] Closed | | Plastic | Diagnoses | Brennan | Valerie Mullins | | | | Surgery | Intertrigo | MD Gia | MD Tristin | | | | | Procedures | [address] | [place] | | | | | CONSULT TO | [facility] | [facility] | | | | | [place] | [place], [place] | CHILDREN | | | | | | [address] | [address] [facility] | | | | | | Phone: | DEACON BYRNE | | | | | | [phone] | [place], | | | | | | Fax: | [place] [address] | | | | | | [phone] | Phone: | | | | | | | [phone] | | | | | | | Fax: | | | | | | | [phone] | +--------+--------+ + + + + Reason for Visit + + + | Reason | Comments | + + + | Follow-up visit | discuss surgery again for bilat breast red and abdominoplasty - | + + + Encounter Details +--------+---------+ + + + | Date | Type | Department | Care Team | Description | +--------+---------+ + + + | 08/18/ | Office | Plastic and | Gia Amin, | Intertrigo (Primary | | 2007 | Visit | Reconstructive | [address] | Dx) | | | | Surgery at [facility] [address] | [place], [place] | | | | | [address] | [address] | | | | | Mailcode: [facility] | [phone] | | | | | [facility] | | | | | | and Healing, | | | | | | Building [address], | | | | | | Floor [place], [place] | | | | | | [address] | | | | | | [phone] | | | +--------+---------+ + + + [...] + documented as of this encounter Progress Gia Carrillo - 08/20/2007 8:49 AM SEANI saw Germaine along with Dr. Vasquez. She has seen a development technical lead without any change in her rash. She does want to proceed with breast reduct ion and panniculectomy for chronic panniculitis of the intertriginous areas. She will be sc heduled. Daniel Morrison Md - 08/19/2007 2:19 PM PDTSubjective: Germaine Heard is a 61 y.o. female here today to discuss mastopexy and panniculectomy. She is s/p Gastric Bypass done 02/03. She returns today to discuss the procedures. She stat es that she will have coverage for the panniculectomy and mastopexy/reduction- stated requis ite reduction weight of "400 grams per side." Weight now about 190 from 435 lbs Has known rash that was seen by a development technical lead, per patient. There was no specific treatab le skin issue; rash thought to be the result of moisture. Asked about medial thigh resection because of rash, states that insurgence will cover. Last mammogram several years ago. Objective: Breasts: Grade 3 ptosis noted, intertiginous maculopaular rash. See last note for measureme nts. Abd: pannus noted- with intertiginous maculopapular rash. Cholecystectomy and appendectomy scars noted. Other laparoscopy incisions noted. S/p resection of umbilicus. Assessment: s/p gastric bypass with massive weight loss. Good candidate for bilateral breas t reduction/mastopexy and panniculectomy. Discussed the fact that she is not a good abdomino plasty candidate because of prior cholecystectomy scar and that pursuing medial thigh lift a t this time is not prudent because of the added length of the procedure and the patient's co morbidities. Discussed breast size, "I don not want to be as small as and A (cup)" Plan: - Consult to [place] for bilateral breast reduction/mastopexy and panniculectomy - Mammogram Seen and examined with Dr. Amin documented in this e ncounter Plan of Treatment Not on filedocumented as of this encounter Visit Diagnoses + + | Diagnosis | + + | Intertrigo - Primary Other specified erythematous condition | + + documented in this encounter
--- OUTSIDE RECORDS SUMMARY | ~2019-01-13 | XMS | Encounter Summary ---
Demographics + + + | Address | [address] | | | [place] [address] | + + + | Home Phone | | + + + | Preferred Language | Unknown | + + + | Marital Status | | + + + | Congregation Affiliation | PRO | + + + | Race | White | + + + | Ethnic Group | Not or | + + + Author + + + | Author | [facility] | + + + | Organization | [facility] | + + + | Address | Unknown | + + + | Phone | Unavailable | + + + Support + + + + + | Name | Relationship | Address | Phone | + + + + + | Hector Mack | ECON | [address] | | | | | [place] | | | | | [address] | | + + + + + Care Team Providers + +------+ + | Care Candy Waffle Assembler Name | Role | Phone | + +------+ + | Tuan Chan MD | PCP | | + +------+ + Encounter Details +--------+ + + + + | Date | Type | Department | Care Team | Description | +--------+ + + + + | 09/07/ | Hospital | Cardiac | Sj, Car Ecg Tech | | | 2008 | Encounter | Non-Invasive Testing | [address] | | | | | at [facility] | [facility] | | | | | [address] | [place] [address] | | | | | [facility] | | | | | | Mailcode: [id number] Isaiah | | | | | | [facility] | | | | | | [place], | | | | | | [place] [address] | | | | | | [phone] | | | +--------+ + + + [...] uncontrolled([id number]) | | | | | | (FORMERLY [facility]) Obesity | | | | | | Other specified | | | | | | pre-operative | | | | | | examination | | + +--------+ + + + documented in this encounter Results 12 LEAD ECG (09/07/2008 3:38 PM PDT) [...] | | | | | | SHAKIRA [id number]) | | | | | | on [...] + + + | Please click | [facility] | | on view image for the detailed interpretation from [employer] results. | CARDIOLOGY | | | | + + + + + + + + | Performing | Address | City/State/Zipcode | Phone Number | | Organization | | | | + + + + + | [facility] OF | [address] | [place], [place] | | | CARDIOLOGY | [facility] | [address] | | + + + + + | [facility] | [address] | [place], [place] | | | CARDIOLOGY | [facility] | [address] | | + + + + + documented in this encounter Visit Diagnoses Not on filedocumented in this encounter
--- OUTSIDE RECORDS SUMMARY | ~2019-01-13 | XMS | Encounter Summary ---
Demographics + + + | Address | [address] | | | [place] [address] | + + + | Home Phone [...] [place] | | | | | [address] | | + + + + + Care Team Providers + +------+ + | Care Class C Driver Name | Role | Phone | + [...] | | | | Mailcode: [id number] | [place], [place] | | | | | [facility] | [address] | | | | | and Healing, | [phone] | | | | | | | | | | | Floor [place], [place] | | | | | | [address] | | | | | | [phone] | | | +--------+ + + + [...] | + + + + + | [facility] | [address] | [place] [address] | | | PATHOLOGY | [address] | | | + + + + + documented in this encounter Visit Diagnoses Not on filedocumented in this encounter"
--- OUTSIDE RECORDS SUMMARY | ~2019-01-13 | XMS | Encounter Summary ---
Demographics + + + | Address | [address] | | | [place] [address] | + + + | Home Phone | | + + + | Preferred Language | Unknown | + + + | Marital Status | | + + + | Yazdanism Affiliation | PRO | + + + | Race | White | + + + | Ethnic Group | Not or | + + + Author + + + | Author | [facility] | + + + | Organization | [facility] | + + + | Address | Unknown | + + + | Phone | Unavailable | + + + Support + + + + + | Name | Relationship | Address | Phone | + + + + + | Hector Mack | ECON | [address] | | | | | [place] | | | | | [address] | | + + + + + Care Team Providers + +------+ + | Care Cleaner And Presser Name | Role | Phone | + +------+ + | Tuan Chan MD | PCP | | + +------+ + Encounter Details +--------+---------+ + + + | Date | Type | Department | Care Team | Description | +--------+---------+ + + + | 12/15/ | Office | Plastic and | Aysha Blackburn | Obesity (Primary Dx) | | 2007 | Visit | Karmen | MD Tristin | | | | | Surgery at [facility] [address] | | | | | | [address] | | | | | | Mailcode: [facility] | | | | | | [facility] | | | | | | and Healing, | | | | | | [address]th | | | | | | Floor [place], [place] | | | | | | [address] | | | | | | [phone] | | | +--------+---------+ + + + [...]
--- OUTSIDE RECORDS SUMMARY | ~2019-01-13 | XMS | Encounter Summary ---
Demographics + + + | Address | [address] | | | [place] [address] | + + + | Home Phone | | + + + | Preferred Language | Unknown | + + + | Marital Status | | + + + | Yazidi Affiliation | PRO | + + + | Race | White | + + + | Ethnic Group | Not or | + + + Author + + + | Author | [facility] | + + + | Organization | [facility] | + + + | Address | Unknown | + + + | Phone | Unavailable | + + + Support + + + + + | Name | Relationship | Address | Phone | + + + + + | Hector Mack | ECON | [address] | | | | | [place] | | | | | [address] | | + + + + + Care Team Providers + +------+ + | Care Nanny Caregiver Name | Role | Phone | + [...] | | | | Mailcode: [id number] | [place], [place] | | | | | [facility] | [address] | | | | | and [place], | [phone] | | | | | [facility] | | | | | | Floor [place], [place] | | | | | | [address] | | | | | | [phone] | | | +--------+---------+ + + + [...] 1 Years of Education: N/A Occupational History [employer] Social History Main Topics Tobacco Use: [...] [facility] | [address] | [place], [place] | | | [facility] | [address] | [address] | | | TESTS | | | | + + + + + | [facility] | [address] | [place], [place] | | | TESTS | [address] | [address] | | + + + + + documented in this encounter Visit Diagnoses + + | Diagnosis | + + | Urolithiasis - Primary Urinary calculus, unspecified | + + documented in this encounter"
--- OUTSIDE RECORDS SUMMARY | ~2019-01-13 | XMS | Encounter Summary ---
Demographics + + + | Address | [address] | | | [place] [address] | + + + | Home Phone | | + + + | Preferred Language | Unknown | + + + | Marital Status | | + + + | Mu-Ism Affiliation | PRO | + + + [...] [place] | | | | | [address] | | + + + + + Care Team Providers + +------+ + | Care Weather Anchor Name | Role | Phone | + [...] | | | | abdominal | [facility] [place] | Mailcode: | | | | | cavity | [address] | [facility] | | | | | without | | for Health | | | | | mention of | | and Healing, | | | | | obstruction | | Building [address], | | | | | or gangrene | | 5th Floor | | | | | | | [place], [place] | | | | | Panniculitis | | [address] | | | | | Procedures | | Phone: | | | | | REQUEST TO | | [phone] | | | | | SURGERY | | | | | | | DIRECTOR [employer] | | | +--------+--------+ + + + [...] | | | | | abdominal | [place], [place] | Mailcode: | | | | | cavity | [address] | [address] [facility] | | | | | without | | Hospital | | | | | mention of | | [place], [place] | | | | | obstruction | | [address] | | | | | or gangrene | | Phone: | | | | | Procedures | | [phone] | | | | | CT ABDOMEN | | Fax: | | | | | WWO CONTRAST | | [phone] | | | | | LTD | [...] Panniculitis | | | | Surgery at [facility] [address] | | | | | | [address] | | | | | | Mailcode: CH5 | | | | | | [facility] | | | | | | and Healing, | | | | | | Building [address], 5th | | | | | | Floor [place], [place] | | | | | | [address] | | | | | | [phone] | | | +--------+---------+ + + + [...] | | + +---------+ + + | [facility] DEPARTMENT OF | | | | [...]
--- OUTSIDE RECORDS SUMMARY | ~2019-01-13 | XMS | Encounter Summary ---
Demographics + + + | Address | [address] | | | [place] [address] | + + + | Home Phone [...] [place] | | | | | [address] | | + + + + + Care Team Providers + +------+ + | Care Manager Gallery Name | Role | Phone | + +------+ + | Tuan Chan MD | PCP | | + +------+ + Encounter Details +--------+ + + + + | Date | Type | Department | Care Team | Description | +--------+ + + + + | 02/05/ | Procedure - | | Record, Operation | Operative Report | | 2005 | | | | | | | Transcribed | | | | +--------+ + + [...] | + +--------+ + + + | OPERATION RECORD | | 02/05/2006 | | Results for this | | | | | | procedure are in the | | | | | | results section. | + +--------+ + + + documented in this encounter Results OPERATION RECORD (02/05/2006) + + | Procedure Note | + + | Interface, Master Technician In - 02/05/2006 12:00 AM PST | | [id number] | | [id number] ANTONIETTAMACK GERMAINE [id number] | | | | Date: 02/05/2006 | | | | Attending Surgeon: Papi Johnson M.D. | | | | Winding Machine Operator(s): Darrel Dunn M.D. | | | | | | Co-Surgeon: | | Herberth Ayala M.D. | | | | Preoperative Diagnosis(es): | | 1. Achalasia. | | 2. Morbid obesity, BMI 52.5. | | | | | | Postoperative Diagnosis(es): | | 1. Achalasia. | | 2. Morbid obesity, BMI 52.5. | | | | | | Procedures Performed: | | 1. Laparoscopic Heller myotomy. | | 2. Saniya-en-Y gastric bypass. | | | | | | Anesthesia: | | General anesthesia. | | | | Complications: | | None. | | | | Drains: | | None. | | | | Fluids: | | Crystalloid 4600 mL and 500 mL of Hespan. | | | | Estimated Blood Loss: | | Minimum. | | | | Disposition: | | The patient taken to PACU in stable condition post-procedure. | | | | Specimens: | | None. | | | | Indications: | | Briefly, this is a 60-year-old female with a past medical history | | significant for both achalasia and morbid obesity. The patient was seen | | and discussed in multidisciplinary conference as to the best options for | | her significant problems given her BMI was 52.5 and her significant | | comorbidities of intertriginous skin wounds, diabetes, hyperlipidemia, and | | hypertension. We thought that it was appropriate to proceed with both a | | laparoscopic Heller myotomy and a Saniya-en-Y gastric bypass. The patient | | had a full PARQ and appeared to understand all operative risks including | | the risk of leak from the gastric bypass, pulmonary embolism, and . | | The patient signed a consent form in the office prior to the date of the | | operation. | | | | Procedure: | | The patient was taken to the operative suite awake, alert, in no apparent | | distress, and placed on the operating table in supine condition. After | | proper induction of general anesthesia, a Mirza catheter was placed. The | | patient was placed on a split-leg bed with bilateral arms supported at her | | side on armboards. All pressure points were padded, and the patient's arms | | were positioned so as to avoid injury to her brachial plexus. After her | | abdomen was then prepped and draped in a sterile fashion, a pause was | | performed indicating the correct patient, the procedure, and the | | administration of perioperative antibiotics. We began our access to the | | abdomen by placing a Veress needle in the left upper quadrant at the | | take-off of the 11th rib. The abdomen was insufflated to 15 mmHg of CO2 | | pressure without difficulty. We then inserted a 11 mm VersaStep trocar 15 | | cm below the xiphoid process. This was placed without difficulty, and | | after the insertion of a 30-degree scope, we assessed the site of entry of | | the trocar as well as the Veress needle. There were no occult injuries | | noted. We then placed a 12 mm trocar in the left subcostal margin | | approximately 12 cm lateral to the xiphoid. We then placed a 5 mm | | VersaStep trocar lateral to that. A 12 mm VersaStep trocar was also placed | | in the right upper quadrant below the costal margin under direct | | visualization. A June liver retractor was placed at the xiphoid | | position without difficulty. We began dissection for the Heller myotomy by | | taking down the gastrohepatic ligament. This was done using a Harmonic | | scalpel. We took this dissection on to the right valentin and took down the | | phrenoesophageal ligament. The esophagus was dissected approximately 270 | | degrees anteriorly with care to avoid the left and right vagus nerves. | | After mobilization of the esophagus, we then divided the anterior fat pad | | allowing a clear window for the placement of our Heller myotomy. The | | myotomy was conducted by first using scissors to bluntly divide the linear | | muscles of the esophagus. We identified the circular muscles and divided | | them using a combination of scissors and blunt technique. We noted | | immediately release of the esophageal musculature and protrusion of the | | submucosa. The myotomy was carried cephalad above the level of apparent | | stricture and then this was carried on to the stomach approximately 2 cm. | | We placed an endoscope and evaluated the extent of the myotomy and after | | the completion of the myotomy noted it to be in good position with release | | of all esophageal stricture components. A leak test was performed and this | | did not demonstrate any injury to the esophageal mucosa. We assessed the | | entire area for hemostasis and then proceeded to perform the Saniya-en-Y | | gastric bypass. This procedure was dictated in a separate note per . | | Herberth Ayala who was the attending surgeon on that portion of the case. | | | | Dr. Johnson was present and scrubbed for the duration of the Heller myotomy | | and directed all surgical activities in the care of Mrs. Herron | | Aretha. | | | | | | | | | | Darrel Dunn M.D. | | | | | | | | | | Papi Johnson M.D. | | | | DS / HS | | [id number] / [id number] / [id number] / [id number] | | | | | | | | | | | | Reviewed or Edited By Darrel Dunn MD on 05-29-2006 | | Electronically signed by Papi Johnson 05-29-2006 11:17:53 AM | | | | | + + + + | Transcriptions | + + | Interface, Master Technician In - 02/20/2006 2:34 AM PST | | [id number] | | [id number] ARETHA HERRON [id number] | | | | Date: 02/05/2006 | | | | Attending Surgeon: Herberth Ayala M.D. | | | | Winding Machine Operator(s): Darrel Dunn M.D. | | | | Preoperative Diagnosis(es): | | Achalasia and morbid obesity. | | | | Postoperative Diagnosis(es): | | Achalasia and morbid obesity. | | | | Procedures Performed: | | Combined laparoscopic gastric bypass and Heller myotomy. | | | | Of note, Dr. Ayala, myself, will be dictating the gastric bypass | | separately from the Heller myotomy which will be dictated by Dr. Johnson. | | | | The attending surgeon for Heller myotomy is Dr. Papi Johnson M.D. | | | | Anesthesia: | | General endotracheal. | | | | Estimated Blood Loss: | | Minimal. | | | | Specimens: | | None. | | | | Brief History: | | This is a woman who presents with achalasia demonstrated on manometry and | | upper GI as well as morbid obesity with a BMI in the 50s, and comorbidities | | include hypertension and diabetes. She has been taken to the operating | | room for a laparoscopic Heller myotomy with gastric bypass. The risks and | | benefits of the procedure have been thoroughly explained to her, and she | | agrees to proceed. | | | | Procedure: | | Dr. Johnson will dictate the Heller myotomy as a separate case. This was | | performed first and during that portion of the case, he prepped and draped | | in the usual sterile fashion and placed Step trocars in a standard foregut | | esophageal operation arrangement. He then performed the Heller myotomy and | | then I was called in, at which point, I performed a laparoscopic gastric | | bypass. This was performed in the following fashion. | | | | We identified the ligament of Treitz. We marched 60 cm along the jejunum. | | From the ligament of Treitz, we then divided the jejunum at this point with | | a single firing of an Endo ELDER white load stapler. We divided the | | mesentery with 2 firings of an Endo ELDER white load stapler. We then | | marched 100 cm along the Saniya limb at which point we created a | | jejunojejunostomy with a single firing of a Endo ELDER white load stapler. | | We oversewed the resultant defect with running 2-0 Vicryl suture followed | | by interrupted 2-0 Vicryl Lemberts. We then closed the mesenteric defect | | with a running 2-0 Vicryl stitch. | | | | We then split the omentum with Harmonic scalpel. We then created an | | approximately 30-cc to 40-cc gastric pouch using serial firings of an Endo | | ELDER blue load stapler. This pouch was created such that it was well away | | from the myotomized stomach. We then brought up the Saniya limb, ensured it | | was not twisted, and sewed the Saniya limb to the gastric pouch using a back | | row of interrupted 2-0 Vicryl sutures. | | | | We then created a gastrojejunostomy well away from the myotomy using a | | single firing of an Endo ELDER blue load stapler. We oversewed the resultant | | defect with running 2-0 Vicryl suture followed by interrupted 2-0 Vicryl | | Lemberts. We then performed methylene blue test, and there was no evidence | | of leak. We therefore proceeded to remove the retractor and trocars under | | direct camera vision and proceeded to close. Closure was performed at the | | skin level with 4-0 Monocryl sutures. The wounds were dressed. The | | patient tolerated the procedure well and dispositioned to the PACU. Sponge | | and needle counts were correct at the end of the case. | | | | | | | | | | Herberth Ayala M.D. | | | | RWO / | | [id number] / [id number] / [id number] / [id number] | | | | | | | | | | | | Electronically signed by Herberth Brambila 02-19-2006 11:24:19 AM | + + documented in this encounter Visit Diagnoses Not on filedocumented in this encounter"
--- OUTSIDE RECORDS SUMMARY | ~2019-01-13 | XMS | Encounter Summary ---
Demographics + + + | Address | [address] | | | [place] [address] | + + + | Home Phone | | + + + | Preferred Language | Unknown | + + + | Marital Status | | + + + | Islam Affiliation | PRO | + + + | Race | White | + + + | Ethnic Group | Not or | + + + Author + + + | Author | [facility] | + + + | Organization | [facility] | + + + | Address | Unknown | + + + | Phone | Unavailable | + + + Support + + + + + | Name | Relationship | Address | Phone | + + + + + | Hector Mack | ECON | [address] | | | | | [place] | | | | | [address] | | + + + + + Care Team Providers + +------+ + | Care Environmental Studies Faculty Member Name | Role | Phone [...] | | | | | Surgery at [facility] [address] [place], [place] | | | | | [address] | [address] | | | | | Mailcode: [facility] | [phone] | | | | | [facility] | | | | | | and Healing, | | | | | | Building [address], [address]th | | | | | | Floor [facility] [place] | | | | | | [address] | | | | | | [phone] | | | +--------+---------+ + + + [...]
--- OUTSIDE RECORDS SUMMARY | ~2019-01-13 | XMS | Clinical Summary ---
Demographics + + + | Address | BAD ADDRESS | | | [place] [address] | + + + | Home Phone [...] | Author | [facility] | | | and [place] | + + + | Organization | [facility] | | | and [place] | + + + | Address | Unknown | + + + | Phone | Unavailable | + + + Support + + + + + | Name | Relationship | Address | Phone | + + + + + | Hector Mack W | ECON | [address] | | | | | [place] [address] | | + + + + + | Najma Krishnamurthy | ECON | Unknown | | + + + + + | Hector Mack | ECON | [address] | | | | | [place] | | | | | [address] | | + + + + + | Najma Sanches | ECON | Unknown | | + + + + + Care Team Providers + +------+ + | Care Paraffin Machine Operator Name | Role | Phone [...] succinate | mouth daily. | | | 0/20 | | e | | (TOPROL-XL) 25 mg 24 | | | | 19 | | | | hr tablet | | | | | | | + + + +---------+------+------+-------+ | senna (SENNA) 8.6 | Take 1 tablet by | | 0 | 05/3 | 05/2 | Activ | | mg tablet | mouth daily as | | | 0/20 | 920 | e | | | needed for [...] | 04/27/2014 | + + + | NC (myocardial infarction) | 09/05/2012 | + + + + + | Overview: Overview: | | NSTEMI | + + + + + | Coronary atherosclerosis | 09/04/2012 | + + + | HTN (hypertension) | 09/04/2012 | + + + | NSTEMI (non-ST elevated myocardial infarction) | 09/04/2012 | + + + Encounters +--------+ + + + + | Date | Type | Specialty | Care Team | Description | +--------+ + + + + | 11/02/ | Orders Only | | Provider, | | | 2019 | | | Historical, MD | | +--------+ + + + + from Last 3 Months Family History + + +------+ + | [...] + | No | | | Alcoholic Drinks/day: 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, sober since 1987 | + + +---------+ [...] + | Blood Pressure | 135/98 | 08/27/20181148 PDT | + + + + | Pulse | 59 | 08/27/20181148 PDT | + + + + | Temperature | 36.9 C (98.5 F) | 08/27/20181148 PDT | + + + + | Respiratory Rate | 16 | 08/27/20181148 PDT | + + + + | Oxygen Saturation | 98% | 05/22/20181149 PST | + + + + | Inhaled Oxygen | - | - | | Concentration | | | + + + + | Weight | 73.3 kg (161 lb 11.2 | 08/27/20181148 PDT | | | oz) | | + + + + | Height | 162.6 cm (5' 4") | 08/27/20181148 PDT | + + + + | Body Mass Index | 27.76 | 08/27/20181148 PDT | + + + + Plan [...] + + + | Vaccine: | | 04/24/2012 | | | Pneumococcal 65+ | 4 | | | | Low/Medium Risk (2 | | | | | of 2 [...] +--------+ +---------+--------+ | MEDICARE | MEDICA | [id number] | 05/29/18 | [phone] | | Medica | | | RE | | 94-Pre | 5 | | re | | | PART A | | sent | | | | | | AND B | | | | | | + +--------+ +--------+ +---------+--------+ | MEDICARE | MEDICA | [id number] | 05/29/18 | [phone] | | Medica | | | RE | | 94-Pre | 5 | | re | | | PART A | | sent | | | | | | AND B | | | | | | + +--------+ +--------+ +---------+--------+ | MEDICARE | MEDICA | [id number] | 05/29/18 | [phone] | | Medica | | | RE | | 94-Pre | 5 | | re | | | PART A | | sent | | | | | | AND B | | | | | | + +--------+ +--------+ +---------+--------+ | [employer] | MODA | [id number] | 03/31/19 | [phone] | | Medica | | MEDICAID HMO | HEALTH | | 19-Pre | 1 | | id | | | MDCD | | sent | | | | | | [place] | | | | | | + +--------+ +--------+ +---------+--------+ | [place] | MEDICA | [id number] | | [phone] | | [place] | | | [place] | | 016-Pr | 2 | | id | | | PLUS | | esent | | | | + +--------+ +--------+ +---------+--------+ | [place] | MEDICA | [id number] | | [phone] | | Medica | | | ID [...] D | al/Fam | | 1946 | [id number] | [place] [address] | | | demetrius | | | 1 (Home) | | + +--------+ +--------+ + + | Germaine Ugalde | Person | Self [birth year] | BAD ADDRESS | | D | al/Fam | | 1946 | [phone] | [place] [address] | | | demetrius | | | 1 (Home) | | + +--------+ +--------+ + + | Germaine Ugalde | Person | Self | [birth year] | | [address] | | D | al/Fam | | 1946 | [id number] | [place] [address] | | | demetrius | | | 1 (Home) | | + +--------+ +--------+ + + | Germaine Ugalde | Person | Self | [birth year] | | BAD ADDRESS | | D | al/Fam | | 1946 | [id number] | [place] [address] | | | demetrius | | | 1 (Home) | | + +--------+ +--------+ + + Advance Directives Patient has advance care planning documents, and code status on file. For more information, please contact:[facility] [place] [address] + + + + + | Code Status | Date | Date | Comments | | | Activated | Inactivated | | + + + + + | Full Code | 05/18/2018 | 05/22/2018 | | | | 19:11 | 14:44 | | + + + + +
--- OUTSIDE RECORDS SUMMARY | ~2019-01-13 | XMS | Encounter Summary ---
Demographics + + + | Address | [address] | | | [place] [address] | + + + | Home Phone [...] [place] | | | | | [address] | | + + + + + Care Team Providers + +------+ + | Care Track Broom Operator Name | Role | Phone | + +------+ + | Tuan Chan MD | PCP | | + +------+ + Encounter Details +--------+ + + + + | Date | Type | Department | Care Team | Description | +--------+ + + + + | 06/26/ | Hospital | Registration [address] | Wes Wolff MD | | | 2005 | Activity | [address] | [address] | | | | | [address] Mailcode: [address] | [place], [place] | | | | | [place], [place] | [address] | | | | | [address] | [phone] | | | | | [phone] | | | +--------+ + + + [...]
--- OUTSIDE RECORDS SUMMARY | ~2019-01-13 | XMS | Encounter Summary ---
Demographics + + + | Address | [address] | | | [place] [address] | + + + | Home Phone [...] [place] | | | | | [address] | | + + + + + Care Team Providers + +------+ + | Care City Plant Supervisor Name | Role | Phone | [...] | | | Surgery at [facility] [address] | | | | | | [address] | | | | | | Mailcode: [facility] | | | | | | [facility] | | | | | | and Healing, | | | | | | Building [address], | | | | | | Floor [place], [place] | | | | | | [address] | | | | | | [phone] | | | +--------+---------+ + + + [...]
--- OUTSIDE RECORDS SUMMARY | ~2019-01-13 | XMS | Encounter Summary ---
Demographics + + + | Address | [address] | | | [place] [address] | + + + | Home Phone | | + + + | Preferred Language | Unknown | + + + | Marital Status | | + + + | Jew Affiliation | PRO | + + + [...] [place] | | | | | [address] | | + + + + + Care Team Providers + +------+ + | Care Barrel Cap Setter Name | Role | Phone | [...] (Primary Dx) | | 2006 | | [address] | | | | | [place] Mailcode: CH[address]S | | | | | | [facility] | | | | | | and Healing, | | | | | | Building [address], [address]th | | | | | | Floor [place], [place] | | | | | | [address] | | | | | | [phone] | | | +--------+ + + + [...] Performed At | + + + | [id number] Estimated GFR = 60 mL/min/1.73 sq m if non- | [facility] | | [id number] Estimated GFR > 60 mL/min/1.73 sq m [...] + + | [facility] | [address] | [place] [address] | | | PATHOLOGY | [address] | | | + + + + + | [facility] DEPARTMENT OF | [address] | [place] [address] | | | PATHOLOGY | [address] [...] DEPARTMENT OF | [address] | [place] [address] | | | PATHOLOGY | [address] | | | + + + + + | [facility] | [address] | [place] [address] | | | PATHOLOGY | [address] | | | + + + + + documented in this encounter Visit Diagnoses + + | Diagnosis | + + | Obesity - Primary Obesity, unspecified | + + documented in this encounter"
--- OUTSIDE RECORDS SUMMARY | ~2019-01-13 | XMS | Encounter Summary ---
Demographics + + + | Address | [address] | | | [place] [address] | + + + | Home Phone | | + + + | Preferred Language | Unknown | + + + | Marital Status | | + + + | Bahai Affiliation | PRO | + + + | Race | White | + + + | Ethnic Group | Not or | + + + Author + + + | Author | [facility] | + + + | Organization | [facility] | + + + | Address | Unknown | + + + | Phone | Unavailable | + + + Support + + + + + | Name | Relationship | Address | Phone | + + + + + | Hector Mack | ECON | [address] | | | | | [place] | | | | | [address] | | + + + + + Care Team Providers + +------+ + | Care Copyist Name | Role | Phone | + [...] | [address] Mailcode: [address] | [address] [place], | | | | | [place], [place] | [place] [address] | | | | | [address] | [phone] | | | | | [phone] | | | +--------+ + + + [...]
--- OUTSIDE RECORDS SUMMARY | ~2019-01-13 | XMS | Encounter Summary ---
Demographics + + + | Address | [address] | | | [place] [address] | + + + | Home Phone [...] [place] | | | | | [address] | | + + + + + Care Team Providers + +------+ + | Care Business Applications Specialist Name | Role | Phone | + +------+ + | Tuan Chan MD | PCP | | + +------+ + Encounter Details +--------+ + + + + | Date | Type | Department | Care Team | Description | +--------+ + + + + | 02/06/ | Respiratory | | Other, Faculty | | | 2005 | Therapy | | [phone] | | +--------+ + + + + [...] | | | | | Ap Butler, MULCHER OPERATOR | | | | + + + [...] SPECIAL | [address] | [place], [place] | | | DIAGNOSTICS - | [address] | [address] | | | PULMONARY FUNCTION | | [...] [facility] | [address] | [place], [place] | | | DIAGNOSTICS - | [address] | [address] | | | PULMONARY FUNCTION | | [...] [facility] | [address] | [place], [place] | | | DIAGNOSTICS - | [address] | [address] | | | PULMONARY FUNCTION | | [...] [facility] | [address] | [place], [place] | | | DIAGNOSTICS - | [address] | [address] | | | PULMONARY FUNCTION | | [...] | | | | | Noe Alas, MULCHER OPERATOR | | | | + + + [...] [facility] | [address] | [place], [place] | | | DIAGNOSTICS - | [address] | [address] | | | PULMONARY FUNCTION | | [...] [facility] | [address] | [place], [place] | | | DIAGNOSTICS - | [address] | [address] | | | PULMONARY FUNCTION | | [...] [facility] | [address] | [place], [place] | | | DIAGNOSTICS - | [address] | [address] | | | PULMONARY FUNCTION | | [...] | | | | | Jeff Watts MULCHER OPERATOR | | | | + + + [...] [facility] | [address] | [place], [place] | | | DIAGNOSTICS - | [address] | [address] | | | PULMONARY FUNCTION | | [...] | | | | | | Mark Giarldo, MULCHER OPERATOR | | | | + + + [...] [facility] | [address] | [place], [place] | | | DIAGNOSTICS - | [address] | [address] | | | PULMONARY FUNCTION | | [...] [facility] | [address] | [place], [place] | | | DIAGNOSTICS - | [address] | [address] | | | PULMONARY FUNCTION | | [...] [facility] | [address] | [place], [place] | | | DIAGNOSTICS - | [address] | [address] | | | PULMONARY FUNCTION | | [...] 10. | | | | | | LABORATORY ANIMAL FACILITY SUPERVISOR IN USE: PATIENT SELF | | | [...] NONE | | | | | | [id number] HOURS . . | | | | [...] | | | | . Sirisha Vigil, [facility] | | | | + + + [...] [facility] SPECIAL | [address] | [place], [place] | | | DIAGNOSTICS - | [address] | [address] | | | PULMONARY FUNCTION | | [...] [facility] | [address] | [place], [place] | | | DIAGNOSTICS - | [address] | [address] | | | PULMONARY FUNCTION | | | | + + + + + documented in this encounter Visit Diagnoses Not on filedocumented in this encounter"
--- OUTSIDE RECORDS SUMMARY | ~2019-01-13 | XMS | Encounter Summary ---
Demographics + + + | Address | [address] | | | [place] [address] | + + + | Home Phone | | + + + | Preferred Language | Unknown | + + + | Marital Status | | + + + | Mandaen Affiliation | PRO | + + + | Race | White | + + + | Ethnic Group | Not or | + + + Author + + + | Author | [facility] | + + + | Organization | [facility] | + + + | Address | Unknown | + + + | Phone | Unavailable | + + + Support + + + + + | Name | Relationship | Address | Phone | + + + + + | Hector Mack | ECON | [address] | | | | | [place] | | | | | [address] | | + + + + + Care Team Providers + +------+ + | Care Manager Fitness Name | Role | Phone | + [...] [address] | | | | | | [place], [place] | | | | | | [address] | | | +--------+ + + + [...]
--- OUTSIDE RECORDS SUMMARY | ~2019-01-13 | XMS | Clinical Summary ---
Demographics + + + | Address | BAD ADDRESS | | | [place] [address] | + + + | Home Phone [...] Author | [facility] | | | and Byronana | + + + | Organization | [facility] | [...] | | | | | [place] [address] | | + + + + + | Najma Krishnamurthy | ECON | Unknown | | + + + + + | Hector Mack | ECON | [address] | | | | | [place] | | | | | [address] | | + + + + + | Najma Sanches | ECON | Unknown | | + + + + + Care Team Providers + +------+ + | Care Pluck Trimmer Name | Role | Phone | + [...] | 04/27/2014 | + + + | [place] (myocardial infarction) | 09/05/2012 | + + [...] +--------+ +---------+--------+ | MEDICARE | MEDICA | [id number] | 05/29/18 | [phone] | | Medica | | | RE | | 94-Pre | 5 | | re | | | PART A | | sent | | | | | | AND B | | | | | | + +--------+ +--------+ +---------+--------+ | MEDICARE | MEDICA | [id number] | 05/29/18 | [phone] | | Medica | | | RE | | 94-Pre | 5 | | re | | | PART A | | sent | | | | | | AND B | | | | | | + +--------+ +--------+ +---------+--------+ | MEDICARE | MEDICA | [id number] | 05/29/18 | [phone] | | Medica | | | RE | | 94-Pre | 5 | | re | | | PART A | | sent | | | | | | AND B | | | | | | + +--------+ +--------+ +---------+--------+ | [employer]AN | MODA | [id number] | 03/31/19 | [phone] | | Medica | | MEDICAID HMO | HEALTH | | 19-Pre | 1 | | id | | | MDCD | | sent | | | | | | [place]MO [place] | | | | | | + +--------+ +--------+ +---------+--------+ | [place]ID [place] | MEDICA | [id number] | | [phone] | | Medica | | | [place] | | 016-Pr | 2 | | id | | | PLUS | | esent | | | | + +--------+ +--------+ +---------+--------+ | [place]ID [place] | MEDICA | [id number] | | [phone] | | Medica | [...] | 1946 | [phone] | [place] [address] | | | demetrius | | | 1 (Home) | | + +--------+ +--------+ + + | Germaine Ugalde | Person | Self [birth year] | BAD ADDRESS | | D | al/Fam | | 1946 | [phone] | [place] [address] | | | demetrius | | | 1 (Home) | | + +--------+ +--------+ + + | Germaine Ugalde | Person | Self | [birth year] | | [address] | | D | al/Fam | | 1946 | [id number] | [place] [address] | | | demetrius | | | 1 (Home) | | + +--------+ +--------+ + + | Germaine Ugalde | Person | Self | [birth year] | | BAD ADDRESS | | D | al/Fam | | 1946 | [id number] | [place] [address] | | | demetrius | | | 1 (Home) | | + +--------+ +--------+ + + Advance Directives Patient has advance care planning documents, and code status on file. For more information, please contact:[facility] [place] [address] + + + + + | Code Status | Date | Date | Comments | | | Activated | Inactivated | | + + + + + | Full Code | 05/18/2018 | 05/22/2018 | | | | 19:11 | 14:44 | | + + + + +
--- OUTSIDE RECORDS SUMMARY | ~2019-01-13 | XMS | Encounter Summary ---
Demographics + + + | Address | [address] | | | [place] [address] | + + + | Home Phone [...] [place] | | | | | [address] | | + + + + + Care Team Providers + +------+ + | Care Crusher Wet Ground Mica Name | Role | Phone | + [...] | | Transcribed | | [place], | | | | | | [place] [address] | | | | | | [phone] | | | | | | | [...] Pedraza MD - 06/18/2007 12:00 AM PDT [id number] | | [id number] ARETHA RAE [id number] | | [id number] Date: 06/18/2007 Attending Surgeon: Noe Hdez M.D. | | Geography Faculty Member(s): Bryan Pedraza M.D. Preoperative Diagnosis(es): Right | | urolithiasis. Postoperative Diagnosis(es): Right urolithiasis. Procedures | | Performed: 1. Rigid cystourethroscopy. 2. Right retrograde pyelogram. 3. Right flexible | | nephroureteroscopy with holmium laser lithotripsy. 4. Right ureteral stent placement | | (6-North Korean x 24 cm). 5. Fluoroscopy with interpretation. [...] case. After | | surgical pause, a 21-North Korean rigid cystoscope was inserted into the bladder [...] both proximally and distally. An | | 18-North Korean Mirza catheter was then placed and filled [...] | | Chey Pedraza M.D. D / [id number] / [id number] / [id number] / | | [id number] Reviewed or Edited By Bryan Pedraza | [...] | | | After surgical pause, a 21-[place] Korean rigid cystoscope was inserted into the | [...] both proximally and distally. An | | 18-North Korean | | Mirza catheter was then placed [...] | | BDD / HS | | [id number] / [id number] / [id number] / [id number] | | | | | | | [...]
--- OUTSIDE RECORDS SUMMARY | ~2019-01-13 | XMS | Encounter Summary ---
Demographics + + + | Address | [address] | | | [place] [address] | + + + | Home Phone | | + + + | Preferred Language | Unknown | + + + | Marital Status | | + + + | Alevism Affiliation | PRO | + + + [...] [place] | | | | | [address] | | + + + + + Care Team Providers + +------+ + | Care Senior Oracle Adf Developer Name | Role | Phone | [...] | Aysha Blackburn | Postoperative | | 2009 | | Reconstructive | MD Tristin | Questions (Patients | | | | Surgery at [facility] [address] | | has some | | | | [address] | | concerns, pain | | | | Mailcode: [facility] | | issues) | | | | [facility] | | | | | | and Healing, | | | | | | Building [address], [address]th | | | | | | Floor [place], [place] | | | | | | [address] | | | | | | [phone] | | | +--------+ + + + [...]
--- OUTSIDE RECORDS SUMMARY | ~2019-01-13 | XMS | Encounter Summary ---
Demographics + + + | Address | [address] | | | [place] [address] | + + + | Home Phone | | + + + | Preferred Language | Unknown | + + + | Marital Status | | + + + | Orthodoxy Affiliation | PRO | + + + | Race | White | + + + | Ethnic Group | Not or | + + + Author + + + | Author | [facility] | + + + | Organization | [facility] | + + + | Address | Unknown | + + + | Phone | Unavailable | + + + Support + + + + + | Name | Relationship | Address | Phone | + + + + + | Hector Mack | ECON | [address] | | | | | [place] | | | | | [address] | | + + + + + Care Team Providers + +------+ + | Care Tool Mechanic Name | Role | Phone | [...] | Eugenio Mailcode: [id number] | [address] [place], | | | | | [place], [place] | [place] [address] | | | | | [address] | [phone] | | | | | [phone] | | | +--------+ + + + [...]
--- OUTSIDE RECORDS SUMMARY | ~2019-01-13 | XMS | Encounter Summary ---
Demographics + + + | Address | [address] | | | [place] [address] | + + + | Home Phone [...] [place] | | | | | [address] | | + + + + + Care Team Providers + +------+ + | Care Car Repairer Helper Name | Role | Phone | [...] Dx) | | | | Surgery at [facility] [address] | | | | | | [address] | | | | | | Mailcode: [facility] | | [facility] | | | | | | and Healing, | | | | | | Building 1, | | | | | | Floor [place], [place] | | | | | | [address] | | | | | | [phone] | | | +--------+---------+ + + + [...]
--- OUTSIDE RECORDS SUMMARY | ~2019-01-13 | XMS | Encounter Summary ---
Demographics + + + | Address | [address] | | | [place] [address] | + + + | Home Phone [...] [place] | | | | | [address] | | + + + + + Care Team Providers + +------+ + | Care Professor Of Business Name | Role | Phone | + [...] Colon | | | | | at [facility] | [facility] | | | | | [address] | [place] [address] | | | | | [facility] | | | | | | Mailcode: [id number] | | | | | | [facility] | | | | | | [place], | | | | | | [place] [address] | | | | | | [phone] | | | +--------+ + + + [...] | | | | | | ([facility]) Obesity | | | | | | [...] + + + | Please click | [facility] | | on view image for the detailed interpretation from [employer] results. | CARDIOLOGY | | | | + + + + + + + + | Performing | Address | City/State/Zipcode | Phone Number | | Organization | | | | + + + + + | [facility] | [address] | [place], [place] | | | CARDIOLOGY | [facility] | [address] | | + + + + + | [facility] | [address] | [place], [place] | | | CARDIOLOGY | [facility] | [address] | | + + + + + documented in this encounter Visit Diagnoses Not on filedocumented in this encounter
--- OUTSIDE RECORDS SUMMARY | ~2019-01-13 | XMS | Encounter Summary ---
Demographics + + + | Address | [address] | | | [place] [address] | + + + | Home Phone [...] [place] | | | | | [address] | | + + + + + Care Team Providers + +------+ + | Care Telescope Operator Name | Role | Phone | + +------+ + | Tuan Chan MD | PCP | | + +------+ + Encounter Details +--------+ + + + + | Date | Type | Department | Care Team | Description | +--------+ + + + + | 11/22/ | Office | [facility] | Clinic, Surgery | Progress Note | | 2006 | Visit-Trans | | | | | | cribed | | [...] as of this encounter Progress Notes Interface, Car Barn Laborer In - 11/28/2005 2:08 AM PDT [id number] ARETHA RAE [id number] Clinic Date: 11/22/2005 Clinic: [facility]. Johnson has met this patient and has discussed her problem with her. I also discussed her issues with her and her family member. Briefly, this is a lady with a 7-year history of achalasia and a history of morbid obesity with a BMI of approximately 50 and a relatively hostile body habitus. She has lost about 15 pounds in the last few months because of her achalasia. Her achalasia is documented in both manometry and upper GI. We spent some time talking with Ms. Heard and her family member. She is a complex patient who will likely require both Heller myotomy as well as a bariatric procedure. It is unclear weather we should perform this with in concert or in a staged fashion. We will present her to esophageal conference to discuss this issue further. She understand this, and in the meantime, she is going to get a Nutrition and a Psychology consult at her home via her PCP, in preparation for possible bariatric surgery, and we will proceed with further evaluation scheduling after her esophageal conference presentation. Herberth Ayala M.D. Chelsie / [id number] / [id number] / [id number] / [id number] Electronically signed by Herberth Brambila 11-27-2005 02:01:34 PM documented i n this encounter Plan of Treatment Not on filedocumented as of this encounter Visit Diagnoses Not on filedocumented in this encounter"
--- OUTSIDE RECORDS SUMMARY | ~2019-01-13 | XMS | Encounter Summary ---
Demographics + + + | Address | [address] | | | [place] [address] | + + + | Home Phone [...] [place] | | | | | [address] | | + + + + + Care Team Providers + +------+ + | Care Sterilization Technician Name | Role | Phone | [...] as of this encounter Progress Notes Interface, Contact Agent In - 02/15/2006 2:34 AM [facility] [id number] ANTONIETTAKRZYSZTOF RAE [id number] Referred From and Faxed To: Tim Paula [...] 4:01. Length of Visit: Sixty-one minutes of pswa-fp-afzf consult with the patient and her friend [...] with myself, dietitian post-surgery. She is from [place]. This visit can be scheduled when she has a followup appointment with her surgeon here at [facility] Patient's Comprehension: This visit was incredibly [...] friend Lulu. Caitlyn Chery R.D., L.D. / [id number] / [id number] / [id number] / cc: Chey Milan A.NSonyPSony Electronically signed by Caitlyn Chery 02-14-2006 01:37:50 PM documented i n this encounter Plan of Treatment Not on filedocumented as of this encounter Visit Diagnoses Not on filedocumented in this encounter"
--- OUTSIDE RECORDS SUMMARY | ~2019-01-13 | XMS | Encounter Summary ---
Demographics + + + | Address | [address] | | | [place] [address] | + + + | Home Phone [...] [place] | | | | | [address] | | + + + + + Care Team Providers + +------+ + | Care Commercial Credit Officer Name | Role | Phone | + +------+ + | Tuan Chan MD | PCP | | + +------+ + Encounter Details +--------+------+ + + + | Date | Type | Department | Care Team | Description | +--------+------+ + + + | 03/11/ | Lab | Laboratory at [facility] | | Kidney stone | | 2010 | | [address] | | | | | | [place], [place] | | | | | | [address] | | | | | | [phone] | | | +--------+------+ + + + [...] + + documented in this encounter Results [facility] - BASIC METABOLIC SET (03/11/2011 5:13 [...] + + + | Test performed by: [facility] | [facility] | | Outpatient Lab [address] [place], [place] [address] | DEPARTMENT OF | | | PATHOLOGY | + + + + + + + + | Performing | Address | City/State/Zipcode | Phone Number | | Organization | | | | + + + + + | [facility] | [address] | [place] [address] | | | PATHOLOGY | [address] [...] cmnt | 150 - 420 K/cu | [facility] | | | COUNT, | | mm [...] + + + | Test performed by: [facility] | [place] | | Outpatient Lab [facility] [address] [place], [place] [address] | DEPARTMENT OF | | Sent to Core Lab. | PATHOLOGY | + + + + + + + + | Performing | Address | City/State/Zipcode | Phone Number | | Organization | | | | + + + + + | [facility] | [address] | [place] [address] | | | PATHOLOGY | [address] | | | + + + + + documented in this encounter Visit Diagnoses + + | Diagnosis | + + | Kidney stone Calculus of kidney | + + documented in this encounter"
--- OUTSIDE RECORDS SUMMARY | ~2019-01-13 | XMS | Encounter Summary ---
Demographics + + + | Address | [address] | | | [place] [address] | + + + | Home Phone [...] [place] | | | | | [address] | | + + + + + Care Team Providers + +------+ + | Care Dye Machine Tender Name | Role | Phone | [...] [address] | | | | | | [place], [place] | | | | | | [address] | | | +--------+ + + + [...]
--- OUTSIDE RECORDS SUMMARY | ~2019-01-13 | XMS | Encounter Summary ---
Demographics + + + | Address | [address] [place] [address] | | | [place] [address] | + + + | Home Phone [...] [place] | | | | | [address] | | + + + + + Care Team Providers + +------+ + | Care Mobile Ui Designer Name | Role | Phone | [...] | | | | Mailcode: CH10U | [place], [place] | | | | | [facility] | [address] | | | | | and Healing, | [phone] | | | | | Building | | | | | | Floor [place], [place] | | | | | | [address] | | | | | | [phone] | | | +--------+ + + + [...]
--- OUTSIDE RECORDS SUMMARY | ~2019-01-13 | XMS | Encounter Summary ---
Demographics + + + | Address | [address] | | | [place] [address] | + + + | Home Phone [...] [place] | | | | | [address] | | + + + + + Care Team Providers + +------+ + | Care Photogrammetrist Name | Role | Phone | + [...] | | | | Mailcode: CH10U | [place], [place] | | | | | [facility] | [address] | | | | | and Healing, | [phone] | | | | | | | | | | | Floor [place], [place] | | | | | | [address] | | | | | | [phone] | | | +--------+---------+ + + + [...] [facility] | [address] | [place], [place] | | | [facility] | [address] | [address] | | | TESTS | | | | + + + + + | [facility] | [address] | [place], [place] | | | TESTS | [address] | [address] | | + + + + + documented in this encounter Visit Diagnoses + + | Diagnosis | + + | Urolithiasis - Primary Urinary calculus, unspecified | + + documented in this encounter"
--- OUTSIDE RECORDS SUMMARY | ~2019-01-13 | XMS | Encounter Summary ---
Demographics + + + | Address | [address] [place] [address] | | | [place] [address] | + + + | Home Phone [...] [place] | | | | | [address] | | + + + + + Care Team Providers + +------+ + | Care Hose Tender Name | Role | Phone | [...] | MD [address] | ([place] ) | | | | Mailcode: CH10U | [place], [place] | | | | | [facility] | [address] | | | | | and Healing, | [phone] | | | | | [facility] | | | | | | Floor [place], [place] | | | | | | [address] | | | | | | [phone] | | | +--------+--------+ + + + [...]
--- OUTSIDE RECORDS SUMMARY | ~2019-01-13 | XMS | Encounter Summary ---
Demographics + + + | Address | [address] | | | [place] [address] | + + + | Home Phone | | + + + | Preferred Language | Unknown | + + + | Marital Status | | + + + | Shinto Affiliation | PRO | + + + [...] [place] | | | | | [address] | | + + + + + Care Team Providers + +------+ + | Care Engineering Department Chair Name | Role | Phone | [...] as of this encounter Progress Notes Interface, Eyeglass Lens Cutter In - 02/15/2006 2:34 AM [facility] [id number] ANTONIETTAKRZYSZTOF RAE [id number] Referred From and Faxed To: Tim Paula [...] 4:01. Length of Visit: Sixty-one minutes of wwqz-kj-fytm consult with the patient and her friend [...] with myself, dietitian post-surgery. She is from [place]. This visit can be scheduled when she has a followup appointment with her surgeon here at [facility] Patient's Comprehension: This visit was [...] friend Lulu. Caitlyn Chery R.D., L.D. / [id number] / [id number] / [id number] / cc: Chey Milan A.NSonyPSony Electronically signed by Caitlyn Chery 02-14-2006 01:37:50 PM documented i n this encounter Plan of Treatment Not on filedocumented as of this encounter Visit Diagnoses Not on filedocumented in this encounter"
--- OUTSIDE RECORDS SUMMARY | ~2019-01-13 | XMS | Encounter Summary ---
Demographics + + + | Address | [address] [address] | | | [place] [address] | + + + | Home Phone [...] [place] | | | | | [address] | | + + + + + Care Team Providers + +------+ + | Care Supervisor Inventory Merchandising Name | Role | Phone | + [...] Pranay | | | | | | [address] | [address] | | | | | | [address] | [address] | | | | | | [address] | [place], [place] | | | | | | [place], [place] | [address] | | | | | | [address] | | | | | | | Phone: | | | | | | | [phone] | | | | | | | Fax: | | | | | | | [phone] | | +--------+--------+ + + + + Encounter Details +--------+---------+ + + + | Date | Type | Department | Care Team | Description | +--------+---------+ + + + | 11/20/ | Office | Cardiology - | Pranay Melendez MD | Dysmetabolic | | 2005 | Visit | General [address] [facility] | | Syndrome X; CAD | | | | [address] | | (Coronary Artery | | | | Mailcode: [id number] | | Disease); Sleep | | | | [facility] | | Apnea; Gout; DM Circ | | | | [address] [place], | | Dis Type [place], | | | | [place] [address] | | Uncontrolled ([facility]); | | | | [phone] | | Dyslipidemia | +--------+---------+ + + [...] Notes Pranay Melendez - 11/21/2005 9:02 AM [facility] is [facility] morbidly obese woman with [...] risk will be manageable. Furthermore, in the long chain beamer weigh t loss will afford cardiovascualr prtection. I did not have access to her lipid values recejose ramos and have ordered another set for later [...] DEPARTMENT OF | [address] | [place] [address] | | | PATHOLOGY | [address] | | | + + + + + | [facility] | [address] | [place] [address] | | | PATHOLOGY | [address] | | | + + + + + documented in this encounter Visit Diagnoses + + | Diagnosis | + + | Dysmetabolic syndrome X Dysmetabolic Syndrome X | + + | CAD (coronary artery disease) Coronary atherosclerosis of unspecified type of vessel, | | [place] or graft | + + | Sleep [...]
--- OUTSIDE RECORDS SUMMARY | ~2019-01-13 | XMS | Encounter Summary ---
Demographics + + + | Address | [address] | | | [place] [address] | + + + | Home Phone | | + + + | Preferred Language | Unknown | + + + | Marital Status | | + + + | Congregational Affiliation | PRO | + + + [...] [place] | | | | | [address] | | + + + + + Care Team Providers + +------+ + | Care Construction Executive Name | Role | Phone | + +------+ + | Tuan Chan MD | PCP | | + +------+ + Encounter Details +--------+ + + + + | Date | Type | Department | Care Team | Description | +--------+ + + + + | 02/06/ | Respiratory | | Other, Faculty | | | 2005 | Therapy | | [phone] | | +--------+ + + + + [...] | | | | | Ap Butler, MENU PLANNER | | | | + + + [...] SPECIAL | [address] | [place], [place] | | | DIAGNOSTICS - | [address] | [address] | | | PULMONARY FUNCTION | | [...] [facility]Y DOWNS | [address] | [place], [place] | | | DIAGNOSTICS - | [address] | [address] | | | PULMONARY FUNCTION | | [...] [facility] DOWNS | [address] | [place], [place] | | | DIAGNOSTICS - | [address] | [address] | | | PULMONARY FUNCTION | | [...] [facility] SPECIAL | [address] | [place], [place] | | | DIAGNOSTICS - | [address] | [address] | | | PULMONARY FUNCTION | | [...] | | | | | Noe Alas, MENU PLANNER | | | | + + + [...] [facility] SPECIAL | [address] | [place], [place] | | | DIAGNOSTICS - | [address] | [address] | | | PULMONARY FUNCTION | | [...] [facility] DOWNS | [address] | [place], [place] | | | DIAGNOSTICS - | [address] | [address] | | | PULMONARY FUNCTION | | [...] [facility] DOWNS | [address] | [place], [place] | | | DIAGNOSTICS - | [address] | [address] | | | PULMONARY FUNCTION | | [...] | | | | | Jeff Watts MENU PLANNER | | | | + + + [...] [facility] SPECIAL | [address] | [place], [place] | | | DIAGNOSTICS - | [address] | [address] | | | PULMONARY FUNCTION | | [...] | | | | | Mark Giraldo, MENU PLANNER | | | | + + + [...] [facility] SPECIAL | [address] | [place], [place] | | | DIAGNOSTICS - | [address] | [address] | | | PULMONARY FUNCTION | | [...] AMY DOWNS | [address] | [place], [place] | | | DIAGNOSTICS - | [address] | [address] | | | PULMONARY FUNCTION | | [...] [facility] SPECIAL | [address] | [place], [place] | | | DIAGNOSTICS - | [address] | [address] | | | PULMONARY FUNCTION | | [...] 10. | | | | | | IT PROGRAMMER ANALYST IN USE: PATIENT SELF | | | [...] NONE | | | | | | [id number] HOURS . . | | | | [...] | | | | . Sirisha Vigil, [facility] | | | | + + + [...] [facility] SPECIAL | [address] | [place], [place] | | | DIAGNOSTICS - | [address] | [address] | | | PULMONARY FUNCTION | | [...] [facility] DOWNS | [address] | [place], [place] | | | DIAGNOSTICS - | [address] | [address] | | | PULMONARY FUNCTION | | | | + + + + + documented in this encounter Visit Diagnoses Not on filedocumented in this encounter"
--- OUTSIDE RECORDS SUMMARY | ~2019-01-13 | XMS | Encounter Summary ---
Demographics + + + | Address | [address] [place] [address] | | | [place] [address] | + + + | Home Phone | | + + + | Preferred Language | Unknown | + + + | Marital Status | | + + + | Quaker Affiliation | PRO | + + + [...] [place] | | | | | [address] | | + + + + + Care Team Providers + +------+ + | Care Farm Machinery Assembler Name | Role | Phone | [...] | | | | | | Floor [place], [place] | | | | | | [address] | | | | | | [phone] | | | +--------+---------+ + + + [...] The next will be in 2 m [facility] time. documented in this encounter Plan of Treatment Not on filedocumented as of this encounter Visit Diagnoses + + | Diagnosis | + + | Achalasia Achalasia and cardiospasm | + + | Obesity Obesity, unspecified | + + documented in this encounter
--- OUTSIDE RECORDS SUMMARY | ~2019-01-13 | XMS | Encounter Summary ---
Demographics + + + | Address | [address] | | | [place] [address] | + + + | Home Phone [...] [place] | | | | | [address] | | + + + + + Care Team Providers + +------+ + | Care Steel Unloader Name | Role | Phone | [...] CH4S | | | | | | [facility] | | | | | | and Sonal, | | | | | | Building 1, 6th | | | | | | Floor [place], [place] | | | | | | [address] | | | | | | [phone] | | | +--------+---------+ + + + [...]
--- OUTSIDE RECORDS SUMMARY | ~2019-01-13 | XMS | Encounter Summary ---
Demographics + + + | Address | [address] | | | [place] [address] | + + + | Home Phone [...] [place] | | | | | [address] | | + + + + + Care Team Providers + +------+ + | Care Stoneworking Sander Name | Role | Phone | + [...] 09/07/ | Office | Dermatology | Julia uBckley | 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 [facility] | FABIO Figueredo [address] | (Primary Dx) | | | | Floor [address] | [address] [place], | | | | | Ave Mailcode: CH16D | [place] [address] | | | | | [facility] | [phone] | | | | | and Healing, | | | | | | Building | | | | | | Floor [place], [place] | | | | | | [address] | | | | | | [phone] | | | +--------+---------+ + + + [...] 06/06 --s/p CABG in 2000 in [facility] --s/p cholecystectomy 35 years ago --s/p appy [...] weeks Julia Buckley PA-C Department of Dermatology [facility] documented in this encounter Plan of Treatment Not on filedocumented as of this encounter Visit Diagnoses + + | Diagnosis | + + | 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
--- OUTSIDE RECORDS SUMMARY | ~2019-01-13 | XMS | Encounter Summary ---
Demographics + + + | Address | [address] | | | [place] [address] | + + + | Home Phone [...] + + + | Author | [facility] | + + + | Organization | [facility] | + + + | Address | Unknown | + + + | Phone | Unavailable | + + + Support + + + + + | Name | Relationship | Address | Phone | + + + + + | Hector Mack | ECON | [address] | | | | | [place] | | | | | [address] | | + + + + + Care Team Providers + +------+ + | Care Senior Engineering Technician Name | Role | Phone | [...] | | | | | | [address] | | | | | | | [place] | | | | | | | [place] | | | | | | | [facility]ilion | | | | | | | (MNP/OLD [facility]) | | | | | | | [place], | | | | | | | [place] [address] | | | | | | | Phone: | | | | | | | [phone] | | | | | | | Fax: | | | | | | | [phone] | +--------+--------+ + + + + Encounter Details +--------+ + + + + | Date | Type | Department | Care Team | Description | +--------+ + + + + | 09/08/ | Hospital | [facility] [address] | Noe Hdez, | | | 2008 | Encounter | [address] | [address] | | | | | [address] | [facility] [place] | | | | | [facility] | [address] | | | | | ([facility]) | [phone] | | | | | [place], [place] | | | | | | [address] | | | | | | [phone] | | | +--------+ + + + [...] to urinate. HAVING A URETERAL STENT: Call: [facility] Urology/Renal Transplant at If you have any of the following: Difficulty breathing or unusual shortness of breath Excessive bleeding, drainage at the operative site Fevers, chills, increased pain that is not relieved by pain medications Persistent nausea or vomiting Other SPECIFIC concerns, such as: If you are unable to urinate. Follow Up Appointments: Dr. Hdez in 2 weeks Follow Up Tests: (Tests at [facility] must be entered into [facility]) Ureteral stent removal Discharge Patient To: Home [...] problems, you can discuss it with your entry level account manager and colleagues so that possible temporary adjustments [...] this happens, you should contact the urologist chief innovation officer for [place]. IS THERE POSSIBILITY OF A URINARY TRACT [...] urine. For medical emergencies, call 911. Call: [facility] Urology/Renal Transplant at If you have any of the following: Difficulty breathing or unusual shortness of breath Excessive bleeding, drainage at the operative site Fevers, chills, increased pain that is not relieved by pain medications Persistent nausea or vomiting Other SPECIFIC concerns, such as: If you are unable to urinate. Follow Up Appointments: Dr. Hdez in 2 weeks Follow Up Tests: (Tests at [facility] must be entered into [facility]) Ureteral stent removal Discharge Patient To: Home Discharging Provider: GAUTAM TAVERAS MD Date Completed: 09/08/2008 [facility] Home Care After CYSTOSCOPY Follow the guidelines [...] from 8:00 4:30, call the Urology Clinic [phone]. After hours, weekend and holidays call the Hospital Locomotive Firer/Fireman at [phone]. Ask for them to page your doctor. [...] | | | | | acid.Performed by [facility] | | | | | | [facility],[address] | | | | | | [place] [address] | | | | | | [phone].Aluwavelab. | | | | | | [facility], | | | | | | - [...] | + + + + + | [facility] | [address] | [place] [address] | | | PATHOLOGY | [address] [...] + + | Kassandra Frazier - 09/08/2008 12:00 AM PDT | | | + + ANESTHESIA/SEDATION (09/07/2008 12:00 AM PDT) + + + | Narrative | Performed At | + + + | | | + + + + + | Procedure Note | + + | Freddie, Faculty - 09/07/2008 12:00 AM PDT | [...]
--- OUTSIDE RECORDS SUMMARY | ~2019-01-13 | XMS | Encounter Summary ---
Demographics + + + | Address | [address] | | | [place] [address] | + + + | Home Phone | | + + + | Preferred Language | Unknown | + + + | Marital Status | | + + + | Evangelical Affiliation | PRO | + + + | Race | White | + + + | Ethnic Group | Not or | + + + Author + + + | Author | [facility] | + + + | Organization | [facility] | + + + | Address | Unknown | + + + | Phone | Unavailable | + + + Support + + + + + | Name | Relationship | Address | Phone | + + + + + | Hector Mack | ECON | [address] | | | | | [place] | | | | | [address] | | + + + + + Care Team Providers + +------+ + | Care Instrument Setter Name | Role | Phone | [...] | | | | Mailcode: CH10U | [place], [place] | | | | | [facility] | [address] | | | | | and Healing, | [phone] | | | | | [facility] | | | | | | Floor [place], [place] | | | | | | [address] | | | | | | [phone] | | | +--------+---------+ + + + [...] Resident Division of Urology and Renal Transplantation [facility] oe Hdez - 10/19/2007 1:51 PM [...] Lab) | | | | | | [facility] | | | | | | [address] | | | | | [address] | | | | | | [place], [place] | | | | | | [id number]: Test | | | | | | performed at [facility] | | | | | | [facility] | | | | | | Laboratory. | | | | + + + + + + + + | Specimen | + + | Urine - Urine | + + + + + + + | Performing | Address | City/State/Zipcode | Phone Number | | Organization | | | | + + + + + | [facility] | [address] | [place] [address] | | | LAB-MICRO | | | [...] + + + + | [facility] | [address] | [place], [place] | | | [facility] POINT OF CARE | [address] | [address] | | | TESTS | | | | + + + + + | [facility] | [address] | [place], [place] | | | TESTS | [address] | [address] | | + + + + + documented in this encounter Visit Diagnoses + + | Diagnosis | + + | Urolithiasis - Primary Urinary calculus, unspecified | + + documented in this encounter"
--- OUTSIDE RECORDS SUMMARY | ~2019-01-13 | XMS | Encounter Summary ---
Demographics + + + | Address | [address] | | | [place] [address] | + + + | Home Phone [...] [place] | | | | | [address] | | + + + + + Care Team Providers + +------+ + | Care Hedge Fund Trader Name | Role | Phone | [...] as of this encounter Progress Notes Interface, Taste Tester In - 05/24/2005 2:07 AM [facility] [id number] 05/23/2005 05/23/2005 [id number] ARETHA RAE [place] [address] [place] [address] or May 23, 2005 Bryan Garza M.D. [address] [place] [address] RE: GERMAINE CARIAS MR #: [id number] Dear Dr. Garza: I saw your patient, Mrs. Germaine Carias in my office on , May 23, 2005. I went over her records and those of Dr. Walker in [place]. This pleasant, obese, 59-year-old female has a [...] junction. Dilation was performed up to a 20-Malaysian Microvasive balloon, and the patient claims that [...] is unemployed. She smoked, has about a 65-gbfg-czgl smoking history but has not smoked in [...] Sincerely, Wes Wolff M.D. Ren / PASCUAL [id number] / [id number] / [id number] / cc: Lalo Walker M.D. [facility] [address] [place] [address] documented i n this encounter Plan of Treatment Not on filedocumented as of this encounter Visit Diagnoses Not on filedocumented in this encounter"
--- OUTSIDE RECORDS SUMMARY | ~2019-01-13 | XMS | Encounter Summary ---
Demographics + + + | Address | [address] [place] [address] | | | [place] [address] | + + + | Home Phone [...] [place] | | | | | [address] | | + + + + + Care Team Providers + +------+ + | Care Proof Reader Name | Role | Phone | [...] 2007 | Activity | [address] | [address] | | | | | Eugenio Mailcode: RPB07 | [place], [place] | | | | | [place], [place] | [address] | | | | | [address] | [phone] | | | | | [phone] | | | +--------+ + + + [...]
--- OUTSIDE RECORDS SUMMARY | ~2019-01-13 | XMS | Encounter Summary ---
Demographics + + + | Address | [address] [place] [address] | | | [place] [address] | + + + | Home Phone [...] [place] | | | | | [address] | | + + + + + Care Team Providers + +------+ + | Care Gum Rolling Machine Operator Name | Role | Phone [...] | | | | | | [place] [address] | | | +--------+ + + + [...] | + + | 02/06/2006 11:10 AM [facility] Anesthesia PostOp Report | | | | Patient: GERMAINE CARIAS [facility] Rec: [id number] Sex F Bdate: 1945 | | Date/Time Data | | Entered Into [facility] | | Anesth PostOp | | Surgery Date [id number] 02/06/06 11:10 | | Anesthesiologist OLEG ASCENCIO 02/06/06 11:10 | | Resident Anesthesiolog JULIEN FRYE 02/06/06 11:10 | | | + + documented in this encounter Visit Diagnoses Not on filedocumented in this encounter"
--- OUTSIDE RECORDS SUMMARY | ~2019-01-13 | XMS | Encounter Summary ---
Demographics + + + | Address | [address] [place] [address] | | | [place] [address] | + + + | Home Phone [...] [place] | | | | | [address] | | + + + + + Care Team Providers + +------+ + | Care Shrinking Machine Operator Name | Role | Phone | + +------+ + | Tuan Chan MD | PCP | | + +------+ + Encounter Details +--------+ + + + + | Date | Type | Department | Care Team | Description | +--------+ + + + + | 02/05/ | Respiratory | | Other, Faculty | | | 2005 | Therapy | | [phone] | | +--------+ + + + + [...] + + + | RESPIRATORY | Pt's beater machine operator and | | | | [...] | | | | | Sirisha Vigil BOTTOM LINER | | | | + + + [...] [facility] | [address] | [place], [place] | | | DIAGNOSTICS - | [address] | [address] | | | PULMONARY FUNCTION | | | | + + + + + documented in this encounter Visit Diagnoses Not on filedocumented in this encounter"
--- OUTSIDE RECORDS SUMMARY | ~2019-01-13 | XMS | Encounter Summary ---
Demographics + + + | Address | [address] [place] [address] | | | [place] [address] | + + + | Home Phone [...] [place] | | | | | [address] | | + + + + + Care Team Providers + +------+ + | Care Child Care Teacher Name | Role | Phone | [...] | | | obstructing | SAINT | [address] | | | | | calculus at | [address] | Ave | | | | | the right | [facility] | [place], [place] | | | | | [place]. | [address] | [address] | | | | | | [address] | Phone: | | | | | | [place], | [phone] | | | | | | [place] [address] | Fax: | | | | | | Phone: | [phone] | | | | | | [phone] | | | | | | | Fax: | | | | | | | [phone] | | +--------+--------+ + + + + Encounter Details +--------+---------+ + + + | Date | Type | Department | Care Team | Description | +--------+---------+ + + + | 03/11/ | Office | Urology Fertility | Renato Chow MD | Kidney stone | | 2010 | Visit | [address] | [address] | (Primary Dx); Other | | | | Mailcode: CH10U | [place], [place] | specified | | | | [facility] | [address] | pre-operative | | | | and Healing, | [phone] | examination | | | | | | | | | | Floor [place], [place] | | | | | | [address] | | | | | | [phone] | | | +--------+---------+ + + + [...] surgeries scheduled to take place on the [place] [facility]: Surgeries scheduled in the [facility] (4 North): registration is located on the 4th floor of [facility] (Day Surgery). Surgeries scheduled in the [facility]: registration is located on the 9th floor. Surgeries scheduled in [facility]: registration is located on the 6th floor. Surgeries scheduled in the [facility]: registration is located i n the [facility] on the first floor. For surgeries scheduled to take place at the [facility] & Healing: registration is l [...] If you use specialized medical equipment at [facility], please check with your provider before bringing it with you into the hospital. Registration Process for all Admissions/Surgeries 1. Please bring your insurance card(s) with you and be prepared to pay any co-payment, co-i nsurance or deposit that may be required. 2. Once you arrive at the registration desk, you will be interviewed by a Patient Access Se rvice Specialist (BILL). Demographics will be verified (example: [...] PST documented in this encounter Progress Notes Claudine Grant, Renato Michelle - 03/11/2011 4:25 PM PST Identification: Germaine eHard is a 65 y.o. female referred by Dr. 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 She has been maintained of Plavx since then but stopped it over a week ago. She has no cardiac symptoms especially since w eight loss from 550 to 190 after gastric bypass in 2005. Pannus removed more recently by Dr. Gia Amin at [facility]. 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 Physical Exam ana, VAUGHN Wright - 03/11 3:51 PM PSTUA [...] + + documented in this encounter Results [facility] - BASIC METABOLIC SET (03/11/2011 [...] + + + | Test performed by: [facility] and [facility] | [facility] | | Outpatient Lab CH[address], [place] [address] | DEPARTMENT OF | | | PATHOLOGY | + + + + + + + + | Performing | Address | City/State/Zipcode | Phone Number | | Organization | | | | + + + + + | [facility] DEPARTMENT OF | [address] | [place] [address] | | | PATHOLOGY | [address] [...] + + + | Test performed by: [facility] and [facility] | [facility] | | Outpatient Lab [facility] [address], [place] [address] | DEPARTMENT OF | | Sent to Core Lab. | PATHOLOGY | + + + + + + + + | Performing | Address | City/State/Zipcode | Phone Number | | Organization | | | | + + + + + | [facility] DEPARTMENT | [address] | [place] [address] | | | PATHOLOGY | [address] | | | + + + + + 12 LEAD ECG (03/11/2011 4:58 PM PST) + + + + + + | Component | Value | Ref Range | Performed | Pathologist | | | | | At | Signature | + + + + + + | VENTRICULAR | 62 | BPM | [facility] DEPT | | | RATE | | [...] view image for the detailed interpretation from [employer] results. | CARDIOLOGY | + + + + + + + + | Performing | Address | City/State/Zipcode | Phone Number | | Organization | | | | + + + + + | [facility] DEPT OF | [address] | [place], [place] | | | CARDIOLOGY | [address] | [address] | | + + + + + [...] | | | | | | [facility]) | | | | | | [place] | | | | | | [facility] | | | | | | [address] [place] [address] [facility] | | | | | | [place], [place] | | | | | | [address] | | | | + + + + + + + + | Specimen | + + | Urine - Voided | + + + + + + + | Performing | Address | City/State/Zipcode | Phone Number | | Organization | | | | + + + + + | [facility] | [address] | [place] [address] | | | LAB-MICRO | | | [...] + | MARLEEN CALLAWAY | [address] [facility] | [place] [address] | | | OF CARE TESTS | | | | + + + + + documented in this encounter Visit Diagnoses + + | Diagnosis | + + | Kidney stone - Primary Calculus of kidney | + + | Other specified pre-operative examination | + + documented in this encounter
--- OUTSIDE RECORDS SUMMARY | ~2019-01-13 | XMS | Encounter Summary ---
Demographics + + + | Address | [address] [place] [address] | | | [place] [address] | + + + | Home Phone | | + + + | Preferred Language | Unknown | + + + | Marital Status | | + + + | Church Affiliation | PRO | + + + | Race | White | + + + | Ethnic Group | Not or | + + + Author + + + | Author | [facility] | + + + | Organization | [facility] | + + + | Address | Unknown | + + + | Phone | Unavailable | + + + Support + + + + + | Name | Relationship | Address | Phone | + + + + + | Hector Mack | ECON | [address] | | | | | [place] | | | | | [address] | | + + + + + Care Team Providers + +------+ + | Care Rehabilitator Name | Role | Phone | + [...] | | | | | | Stay [address] [facility] | | | | | | [address] | | | | | | Mailcode: UHN65 | | | | | | [place] | | | | | | [address] [place], [place] | | | | | | [address] | | | | | | [phone] | | | +--------+ + + + [...]
--- OUTSIDE RECORDS SUMMARY | ~2019-01-13 | XMS | Encounter Summary ---
Demographics + + + | Address | [address] [place] [address] | | | [place] [address] | + + + | Home Phone [...] [place] | | | | | [address] | | + + + + + Care Team Providers + +------+ + | Care Benefits Counselor Name | Role | Phone | + +------+ + | Tuan Chan MD | PCP | | + +------+ + Encounter Details +--------+ + + + + | Date | Type | Department | Care Team | Description | +--------+ + + + + | 02/13/ | Landfill Gas Technician | Urology Fertility | Renato Chow MD | Kidney stones | | 2010 | | [address] | [address] | (Primary Dx) | | | | Mailcode: CH10U | [place], [place] | | | | | [facility] | [address] | | | | | and Healing, | [phone] | | | | | [facility] | | | | | | Floor [place], [place] | | | | | | [address] | | | | | | [phone] | | | +--------+ + + + [...]
--- OUTSIDE RECORDS SUMMARY | ~2019-01-13 | XMS | Encounter Summary ---
Demographics + + + | Address | [address] | | | [place] [address] | + + + | Home Phone [...] [place] | | | | | [address] | | + + + + + Care Team Providers + +------+ + | Care Dock Or Pier Laborer Name | Role | Phone | [...] | | | | | | | [facility] | | | | | | | [address] | | | | | | | [facility] | | | | | | | Hospital | | | | | | | [place], [place] | | | | | | | [address] | | | | | | | Phone: | | | | | | | [phone] | | | | | | | Fax: | | | | | | | [phone] | +--------+--------+ + + + + Encounter Details +--------+---------+ + + + | Date | Type | Department | Care Team | Description | +--------+---------+ + + + | 05/09/ | Office | Preoperative | Steven, | Preop Examination | | 2008 | Visit | Medicine Clinic at | [address]A [address] | (Primary Dx); | | | | [facility] 4th Floor [address] | | Long-Term (Current) | | | | [address] | | Use of | | | | Mailcode: CH4S | | Anticoagulants | | | | [facility] | | | | | | and Healing, | | | | | | Building [facility] Floor | | | | | | [place], [place] | | | | | | [address] | | | | | | [phone] | | | +--------+---------+ + + + [...] | + + + + + | [facility] DEPARTMENT OF | [address] | [place] [address] | | | PATHOLOGY | [address] | | | + + + + + | [facility] DEPARTMENT OF | [facility] | [place] [address] | | | PATHOLOGY | [address] [...] | + + + + + | [facility] DEPARTMENT OF | [address] | [place] [address] | | | PATHOLOGY | [address] | | | + + + + + | [facility] DEPARTMENT OF | [address] [facility] | [place] [address] | | | PATHOLOGY | [address] [...] Performed At | + + + | [id number] Estimated GFR > 60 mL/min/1.73 sq m if non- | [facility] | | Guyanese [id number] Estimated GFR > 60 mL/min/1.73 sq m [...] | + + + + + | [facility] DEPARTMENT OF | [address] | [place] [address] | | | PATHOLOGY | [address] | | | + + + + + | [facility] DEPARTMENT OF | [facility] [address] | [place] [address] | | | PATHOLOGY | [address] [...] | + + + + + | [facility] DEPARTMENT OF | [address] | [place] [address] | | | PATHOLOGY | [address] | | | + + + + + | [facility] DEPARTMENT OF | [address] [facility] | [place] [address] | | | PATHOLOGY | [address] [...]
--- OUTSIDE RECORDS SUMMARY | ~2019-01-13 | XMS | Encounter Summary ---
Demographics + + + | Address | [address] [place] [address] | | | [place] [address] | + + + | Home Phone [...] [place] | | | | | [address] | | + + + + + Care Team Providers + +------+ + | Care Tactical Air Defense Controller Name | Role | Phone | [...] | | | | | abdominal | [facility] [place] | Mailcode: | | | | | cavity | [address] | CH5P Center | | | | | without | | for Health | | | | | mention of | | and Healing, | | | | | obstruction | | Building 1, | | | | | or gangrene | | 5th Floor | | | | | | | [place], [place] | | | | | Panniculitis | | [address] | | | | | Procedures | | Phone: | | | | | REQUEST TO | | [phone] | | | | | SURGERY | | | | | | | NUTRITION AIDES TEACHER | | | +--------+--------+ + + [...] | | | | | abdominal | [place], [place] | Mailcode: | | | | | cavity | [address] | [address] [facility] | | | | | without | | Hospital | | | | | mention of | | [place], [place] | | | | | obstruction | | [address] | | | | | or gangrene | | Phone: | | | | | Procedures | | [phone] | | | | | CT ABDOMEN | | Fax: | | | | | WWO CONTRAST | | [phone] | | | | | LTD | [...] Panniculitis | | | | Surgery at [facility] [address] | | | | | | [address] | | | | | | Mailcode: CH5 | | | | | | [facility] | | | | | | and Healing, | | | | | | Building 1, 5th | | | | | | Floor [place], [place] | | | | | | [address] | | | | | | [phone] | | | +--------+---------+ + + + [...] | | + +---------+ + + | [facility] | | | [...]
--- OUTSIDE RECORDS SUMMARY | ~2019-01-13 | XMS | Encounter Summary ---
Demographics + + + | Address | [address] [address] | | | [place] [address] | + + + | Home Phone [...] IGNAC[place] camacho | | | | | [address] | | + + + + + Care Team Providers + +------+ + | Care Civil Engineering Project Manager Name | Role | Phone | [...] 2007 | Registratio | [address] | [address] | | | | n | Eugenio Mailcode: [id number] | [place], [place] | | | | | [place], [place] | [address] | | | | | [address] | [phone] | | | | | [phone] | | | +--------+ + + + [...]
--- OUTSIDE RECORDS SUMMARY | ~2019-01-13 | XMS | Encounter Summary ---
Demographics + + + | Address | [address] [address] [address] | | | [place] [address] | + + + | Home Phone [...] IGNAC[place] camacho | | | | | [address] | | + + + + + Care Team Providers + +------+ + | Care Drill Press Tender Name | Role | Phone | + +------+ + | Tuan Chan MD | PCP | | + +------+ + Encounter Details +--------+ + + + + | Date | Type | Department | Care Team | Description | +--------+ + + + + | 10/24/ | Results | General Surgery | Papi Johnson MD | | | 2005 | Only | [address] | [address] | | | | | Mary Becker Mailcode: | Mary Becker [place], | | | | | [address]A Physician's | [place] [address] | | | | | [address] | [phone] | | | | | [place], [place] | | | | | | [address] | | | | | | [phone] | | | +--------+ + + + [...] | | + +---------+ + + | [facility] DEPARTMENT OF | | | | | RADIOLOGY | | | | + +---------+ + + documented in this encounter Visit Diagnoses Not on filedocumented in this encounter"
--- OUTSIDE RECORDS SUMMARY | ~2019-01-13 | XMS | Encounter Summary ---
Demographics + + + | Address | [address] | | | [place] [address] | + + + | Home Phone [...] IGNAC[place] camacho | | | | | [address] | | + + + + + Care Team Providers + +------+ + | Care Deicer Finisher Name | Role | Phone | [...] | | | | | | | [facility] | | | | | | | [address] | | | | | | | [facility] | | | | | | | Hospital | | | | | | | [place], [place] | | | | | | | [address] | | | | | | | Phone: | | | | | | | [phone] | | | | | | | Fax: | | | | | | | [phone] | +--------+--------+ + + + + Encounter [...] | | Anticoagulants | | | | [facility] | | | | | | and Healing, | | | | | | Building [facility] Floor | | | | | | [place], [place] | | | | | | [address] | | | | | | [phone] | | | +--------+---------+ + + + [...] + + + + | [facility] DEPARTMENT OF | [address] | [place] [address] | | | PATHOLOGY | [address] | | | + + + + + | [facility] DEPARTMENT OF | [facility] | [place] [address] | | | PATHOLOGY | [address] [...] + + + + | [facility] DEPARTMENT OF | [address] | [place] [address] | | | PATHOLOGY | [address] | | | + + + + + | [facility] DEPARTMENT OF | [address] [facility] | [place] [address] | | | PATHOLOGY | [address] [...] Performed At | + + + | [id number] Estimated GFR > 60 mL/min/1.73 sq m if non- | [facility] | | German [id number] Estimated GFR > 60 mL/min/1.73 sq m if | DEPARTMENT OF | | [place] GFR is estimated using the MDRD equation [...] + + + + | [facility] DEPARTMENT OF | [address] | [place] [address] | | | PATHOLOGY | [address] | | | + + + + + | [facility] DEPARTMENT OF | [facility] [address] | [place] [address] | | | PATHOLOGY | [address] [...] + + + + | [facility] DEPARTMENT OF | [address] | [place] [address] | | | PATHOLOGY | [address] | | | + + + + + | [facility] DEPARTMENT OF | [address] [facility] | [place] [address] | | | PATHOLOGY | [address] [...]
--- OUTSIDE RECORDS SUMMARY | ~2019-01-13 | XMS | Encounter Summary ---
Demographics + + + | Address | [address] [address] | | | [place] [address] | + + + | Home Phone [...] | Hcetor Mack | ECON | [address] | | | | | [place] camacho | | | | | [address] | | + + + + + Care Team Providers + +------+ + | Care Finance Effectiveness Manager Name | Role | Phone | + +------+ + | Tuan Chan MD | PCP | | + +------+ + Encounter Details +--------+ + + + + | Date | Type | Department | Care Team | Description | +--------+ + + + + | 02/13/ | Magistrate Judge | Urology Fertility | Renato Chow MD | Kidney stones | | 2010 | | [address] | [address] | (Primary Dx) | | | | Mailcode: CH10U | [place], [place] | | | | | [facility] | [address] | | | | | and Healing, | [phone] | | | | | [facility] | | | | | | Floor [place], [place] | | | | | | [address] | | | | | | [phone] | | | +--------+ + + + [...]
--- OUTSIDE RECORDS SUMMARY | ~2019-01-13 | XMS | Encounter Summary ---
Demographics + + + | Address | [address] [address] | | | [place] [address] | + + + | Home Phone [...] IGNAC[place] camacho | | | | | [address] | | + + + + + Care Team Providers + +------+ + | Care Clinical Psychology Teacher Name | Role | Phone | [...] | | | | Mailcode: CH10U | [place], [place] | | | | | [facility] | [address] | | | | | and Healing, | [phone] | | | | | | | | | | | Floor [place], [place] | | | | | | [address] | | | | | | [phone] | | | +--------+---------+ + + + [...] PAPPAS | [address] | [place], [place] | | | POLAND POINT OF CARE | [address] | [address] | | | TESTS | | | | + + + + + | AMY-POINT OF CARE | [address] | [place], [place] | | | TESTS | [address] | [address] | | + + + + + documented in this encounter Visit Diagnoses + + | Diagnosis | + + | Urolithiasis - Primary Urinary calculus, unspecified | + + documented in this encounter"
--- OUTSIDE RECORDS SUMMARY | ~2019-01-13 | XMS | Encounter Summary ---
Demographics + + + | Address | [address] [facility] [address] | | | [place] [address] | + + + | Home Phone [...] IGNAC[place] camacho | | | | | [address] | | + + + + + Care Team Providers + +------+ + | Care Electric Motor Assembler And Tester Name | Role | Phone | [...] | | Transcribed | | Mary Becker [place], | | | | | | [place] [address] | | | | | | [phone] | | | | | | | [...] Pedraza MD - 06/18/2007 12:00 AM PDT [id number] | | [id number] ARETHA RAE [id number] | | [id number] Date: 06/18/2007 Attending Surgeon: Noe Hdez M.D. | | Zigzag Tunnel Elastic Operator(s): Bryan Pedraza M.D. Preoperative Diagnosis(es): Right | | urolithiasis. Postoperative Diagnosis(es): Right urolithiasis. Procedures | | Performed: 1. Rigid cystourethroscopy. 2. Right retrograde pyelogram. 3. Right flexible | | nephroureteroscopy with holmium laser lithotripsy. 4. Right ureteral stent placement | | (6-Slovenian x 24 cm). 5. Fluoroscopy with interpretation. [...] case. After | | surgical pause, a 21-Slovenian rigid cystoscope was inserted into the bladder [...] both proximally and distally. An | | 18-Slovenian Mirza catheter was then placed and filled [...] | | Chey Pedraza M.D. D / [id number] / [id number] / [id number] / | | [id number] Reviewed or Edited By Bryan Pedraza | [...] | | | After surgical pause, a 21-Slovenian rigid cystoscope was inserted into the | [...] both proximally and distally. An | | 18-Slovenian | | Mirza catheter was then placed [...] | | BDD / HS | | [id number] / [id number] / [id number] / [id number] | | | | | | | [...]
--- OUTSIDE RECORDS SUMMARY | ~2019-01-13 | XMS | Encounter Summary ---
Demographics + + + | Address | [address] | | | [place]A [address] | + + + | Home Phone [...] IGNACIO bedolla | | | | | [address] | | + + + + + Care Team Providers + +------+ + | Care Nylon Operator Name | Role | Phone | [...] + + | 03/12/ | Hospital | [facility] [address] | Renato Chow MD | | | 2010 - | Encounter | [address] | [address] | | | | | [facility] | [place], [place] | | | 03/13/ | | [place], [place] | [address] | | | 2010 | | [address] | [phone] | | | | | [phone] | | | +--------+ + + + [...] re removal. Feel free to call the [facility] urology clinic as needed for any additional questions . Your Follow-Up Plan Follow-up information has not been specified. Other Discharge Orders and Instructions Please contact Urology clinic ([phone]) during business hours or the Urology resident nutrition services worker ([phone]) after business hours for: 1. Redness or [...] Physician: Renato Chow MD Patient: GERMAINE HEARD [id number] 24H events/Subjective: No events overnight. Pain well [...] 03/13/11 0659 03/13/11699 - 03/14/11 0659 Shift 9463-6296 5732-1148 9687-8642 Daily Total 7223-4098 3029-7985 7361-4834 Daily Total I N T A K E P.O. 520 1080 1600 I.V. 1550 458 008 2296 5 5 Shift Total 1550 1320 1880 4750 5 5 O U T P U T Urine 800 788 562 1945 200 200 Shift Total 800 482 416 6362 200 200 Medication: acetaminophen (aka TYLENOL) tablet [...] DEPARTMENT OF | [address] | [place] [address] | | | PATHOLOGY | [address] [...] + + + | [facility] | [address] | [place] [address] | | | PATHOLOGY | [address] [...] | | | | | | [address] [facility] [place], | | | | | | [place] [address] | | | | | | [phone] | | | | | | | | | | | | [email or web address] | | | | | | Alma [...] [facility] | [address] | [place], [place] | | | [facility] | | [address] | | + + + + + [...]
--- OUTSIDE RECORDS SUMMARY | ~2019-01-13 | XMS | Encounter Summary ---
Demographics + + + | Address | [address] [facility] [facility] [address] | | | [place] [address] | + + + | Home Phone [...] IGANCIO camacho | | | | | [address] | | + + + + + Care Team Providers + +------+ + | Care Renal Dietitian Name | Role | Phone | + [...] as of this encounter Discharge Summaries Interface, Machine Adjuster Leader Case Trim In - 02/20/2006 2:34 AM [facility] [[email or web address]] [id number] ARETHA RAE [id number] Admission Date: 02/05/2006 Discharge Date: 02/09/2006 Staff [...] of discharge, she was seen by our nurse outreach case manager who assisted her with a voucher for a motel. She will stay in the local area for the next 2 days before returning home to [place]. The patient was seen by Nutrition and [...] Sana Timmons M.D. Chey Escobar M.D. / [id number] / [id number] / [id number] / 47570 E: 02/11/2006 cmw cc: Tuan Chan M.D. FAX: [phone] Reviewed or Edited By Sana Timmons on 02-19-2006 Electronically signed by Herberth Brambila 02-19-2006 11:24:08 AM documented i n this encounter Plan of Treatment Not on filedocumented as of this encounter Visit Diagnoses Not on filedocumented in this encounter"
--- OUTSIDE RECORDS SUMMARY | ~2019-01-13 | XMS | Encounter Summary ---
Demographics + + + | Address | [address] | | | [place] [address] | + + + | Home Phone [...] [place] camacho | | | | | [address] | | + + + + + Care Team Providers + +------+ + | Care Superintendent Car Construction Name | Role | Phone | + [...] General Surgery | Papi Johnson MD | ePrryalasia (Primary | | 2005 | Visit | [address] | [address] | Dx) | | | | Mary Becker Mailcode: | Mary Becker [place], | | | | | [address] Physician's | [place] [address] | | | | | [address] | [phone] | | | | | [place], [place] | | | | | | [address] | | | | | | [phone] | | | +--------+---------+ + + + [...] cardiac problems. She smoked, has about a 82-yrij-hlxh smoking history but has not smoked in [...]
--- OUTSIDE RECORDS SUMMARY | ~2019-01-13 | XMS | Encounter Summary ---
Demographics + + + | Address | [address] | | | [place] [address] | + + + | Home Phone [...] [place]NAC[place] camacho | | | | | [address] | | + + + + + Care Team Providers + +------+ + | Care Fish Tender Name | Role | Phone | [...] | Only | [address] | [address] | | | | | Mailcode: CH10U | [place], [place] | | | | | [facility] | [address] | | | | | and Healing, | [phone] | | | | | | | | | | | Floor [place], [place] | | | | | | [address] | | | | | | [phone] | | | +--------+ + + + [...]
--- OUTSIDE RECORDS SUMMARY | ~2019-01-13 | XMS | Encounter Summary ---
Demographics + + + | Address | [address] | | | [place] [address] | + + + | Home Phone | | + + + | Preferred Language | Unknown | + + + | Marital Status | | + + + | Restorationism Affiliation | PRO | + + + [...] [place] camacho | | | | | [address] | | + + + + + Care Team Providers + +------+ + | Care Rfid Specialist Name | Role | Phone | + +------+ + | Tuan Chan MD | PCP | | + +------+ + Encounter Details +--------+ + + + + | Date | Type | Department | Care Team | Description | +--------+ + + + + | 08/05/ | Results | Dermatology | Khoa Manuel, | | | 2008 | Only | Medical at [facility] 16 | ,PhD Gloria | | | | | Floor [address] | Allergy Asthma | | | | | [place] Mailcode: CH16D | Dermatology 3592 | | | | | [facility] | [facility] | | | | | and Healing, | [place] [address] | | | | | [facility] | [phone] | | | | | Floor [place], [place] | | | | | | [address] | | | | | | [phone] | | | +--------+ + + + [...] | + +--------+ + + + | DERMATOPATHOLOGY([facility] Routin | 08/05/2008 | | Results for this | | [facility]) | e | | | procedure [...] | | | | | MNT) | [id number] | | | | | | DESCRIPTION:Punch [...] + + + | [facility] | [address] | [place] [address] | | | DERMATOPATHOLOGY | [address] | | | + + + + + documented in this encounter Visit Diagnoses Not on filedocumented in this encounter"
--- OUTSIDE RECORDS SUMMARY | ~2019-01-13 | XMS | Encounter Summary ---
Demographics + + + | Address | [address] | | | [place] [address] | + + + | Home Phone [...] IGNAC[place] camacho | | | | | [address] | | + + + + + Care Team Providers + +------+ + | Care Cloth Printer Helper Name | Role | Phone | [...] | | | | | | | [facility]GA[facility] | | | | | | | [place] | | | | | | | [facility] | | | | | | | (MNP/OLD [facility]) | | | | | | | [place], | | | | | | | [place] [address] | | | | | | | Phone: | | | | | | | [phone] | | | | | | | Fax: | | | | | | | [phone] | +--------+--------+ + + + + Encounter Details +--------+ + + + + | Date | Type | Department | Care Team | Description | +--------+ + + + + | 09/08/ | Hospital | [facility] [address] | Noe Hdez, | | | 2008 | Encounter | [address] | [address] | | | | | [address] VEGA[address] | [facility] [place] | | | | | [facility] | [address] | | | | | (MNP/[facility]) | [phone] | | | | | [place], [place] | | | | | | [address] | | | | | | [phone] | | | +--------+ + + + [...] to urinate. HAVING A URETERAL STENT: Call: [facility] Urology/Renal Transplant at If you have any of the following: Difficulty breathing or unusual shortness of breath Excessive bleeding, drainage at the operative site Fevers, chills, increased pain that is not relieved by pain medications Persistent nausea or vomiting Other SPECIFIC concerns, such as: If you are unable to urinate. Follow Up Appointments: Dr. Hdez in 2 weeks Follow Up Tests: (Tests at [facility] must be entered into [facility]) Ureteral stent removal Discharge Patient To: Home [...] problems, you can discuss it with your quality system manager and colleagues so that possible temporary [...] this happens, you should contact the urologist occupational health nurse supervisor for [place]. IS THERE POSSIBILITY OF A URINARY TRACT [...] urine. For medical emergencies, call 911. Call: [facility] Urology/Renal Transplant at If you have any of the following: Difficulty breathing or unusual shortness of breath Excessive bleeding, drainage at the operative site Fevers, chills, increased pain that is not relieved by pain medications Persistent nausea or vomiting Other SPECIFIC concerns, such as: If you are unable to urinate. Follow Up Appointments: Dr. Hdez in 2 weeks Follow Up Tests: (Tests at [facility] must be entered into [facility]) Ureteral stent removal Discharge Patient To: Home Discharging Provider: GAUTAM TAVERAS MD Date Completed: 09/08/2008 [facility] After CYSTOSCOPY Follow the guidelines [...] from 8:00 4:30, call the Urology Clinic [phone]. After hours, weekend and holidays call the Hospital Furnace Tapper at [phone]. Ask for them to page your doctor. [...] | | | | | acid.Performed by [facility] | | | | | | [facility],[address] | | | | | | [place] [address] | | | | | | [phone] | | | | | | [facility], | | | | | | [...] + + + + | [facility] | [address] | [place] [address] | | | PATHOLOGY | [address] [...]
--- OUTSIDE RECORDS SUMMARY | ~2019-01-13 | XMS | Encounter Summary ---
Demographics + + + | Address | [address] [address] | | | [place] [address] | + + + | Home Phone [...] IGNAC[place] camacho | | | | | [address] | | + + + + + Care Team Providers + +------+ + | Care Facilities Maintenance Assistant Name | Role | Phone | [...] | | | | | Stay [address] [facility] | | | | | | [address] | | | | | | Mailcode: UHN65 | | | | | | [address]ah [address] | | | | | | [address] [place], [place] | | | | | | [address] | | | | | | [phone] | | | +--------+ + + + [...]
--- OUTSIDE RECORDS SUMMARY | ~2019-01-13 | XMS | Encounter Summary ---
Demographics + + + | Address | [address] | | | [place] [address] | + + + | Home Phone [...] IGNAC[place] camacho | | | | | [address] | | + + + + + Care Team Providers + +------+ + | Care Sandstone Inspector Repairer Name | Role | Phone | [...] [id number] | | | | | | [place], [place] | | | | | | [address] | | | | | | [phone] | | | +--------+ + + + [...] DEPARTMENT OF | [address] | [place] [address] | | | PATHOLOGY | [address] | | | + + + + + | [place] DEPARTMENT OF | [address] [facility] | [place] [address] | | | PATHOLOGY | [address] [...] Performed At | + + + | [id number] Estimated GFR > 60 mL/min/1.73 sq m if non- | [facility] | | 184100 Estimated GFR > 60 mL/min/1.73 sq m [...] + | [facility] DEPARTMENT OF | [address] [facility] | [place] [address] | | | PATHOLOGY | [address] | | | + + + + + | [facility] DEPARTMENT OF | [address] [facility] | [place] [address] | | | PATHOLOGY | [address] [...] + + + + | [facility] | [address] [facility] | [place] [address] | | | PATHOLOGY | [address] | | | + + + + + | [facility] | [address] [facility] | [place] [address] | | | PATHOLOGY | [address] | | | + + + + + documented in this encounter Visit Diagnoses Not on filedocumented in this encounter"
--- OUTSIDE RECORDS SUMMARY | ~2019-01-13 | XMS | Encounter Summary ---
Demographics + + + | Address | [address] [facility] [facility] [address] | | | [place] [address] | + + + | Home Phone [...] IGNACIO camacho | | | | | [address] | | + + + + + Care Team Providers + +------+ + | Care Export Administrator Name | Role | Phone | [...] 2007 | Registratio | [address] | [address] | | | | n | Eugenio Mailcode: RPB07 | [place], [place] | | | | | [place], [place] | [address] | | | | | [address] | [phone] | | | | | [phone] | | | +--------+ + + + [...]
--- OUTSIDE RECORDS SUMMARY | ~2019-01-13 | XMS | Encounter Summary ---
Demographics + + + | Address | [address] [place] [address] | | | [place] [address] | + + + | Home Phone [...] [place]NAC[place] camacho | | | | | [address] | | + + + + + Care Team Providers + +------+ + | Care Inside Sales Account Manager Name | Role | Phone [...] | | | | | | | [place], [place] | | | | | | | [address] | | | | | | | Phone: | | | | | | | [phone] | | | | | | | Fax: | | | | | | | [phone] | +--------+--------+ + + + + Encounter Details +--------+---------+ + + + | Date | Type | Department | Care Team | Description | +--------+---------+ + + + | 05/09/ | Office | Plastic and | Resident, Pls | Panniculitis | | 2008 | Visit | Reconstructive | [address] | (Primary Dx) | | | | Surgery at [facility] [address] | [place] [address] | | | | | [address] | | | | | | Mailcode: CH5P | | | | | | [facility] | | | | | | and Healing, | | | | | | Building | | | | | | Floor [place], [place] | | | | | | [address] | | | | | | [phone] | | | +--------+---------+ + + + [...] 1 Years of Education: N/A 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
--- OUTSIDE RECORDS SUMMARY | ~2019-01-13 | XMS | Encounter Summary ---
Demographics + + + | Address | [address] [place] [address] [address] | | | [place] [address] | + + + | Home Phone [...] [place]NAC[place] camacho | | | | | [address] | | + + + + + Care Team Providers + +------+ + | Care Brush Stainer Name | Role | Phone | + [...] | | | | | | [place] [address] | | | +--------+--------+ + + + [...]
--- OUTSIDE RECORDS SUMMARY | ~2019-01-13 | XMS | Encounter Summary ---
Demographics + + + | Address | [address] [place] [address] | | | [place] [address] | + + + | Home Phone [...] IGNAC[place] camacho | | | | | [address] | | + + + + + Care Team Providers + +------+ + | Care Outpatient Physical Therapist Assistant Name | Role | Phone | + +------+ + | Tuan Chan MD | PCP | | + +------+ + Encounter Details +--------+ + + + + | Date | Type | Department | Care Team | Description | +--------+ + + + + | 06/25/ | Ancillary | Registration [address] | Wes Wolff MD | | | 2005 | Registratio | [facility] | [address] | | | | [address] | [address] Mailcode: RPB07 | [place], [place] | | | | | [place], [place] | [address] | | | | | [address] | [phone] | | | | | [phone] | | | +--------+ + + + [...] [facility] DEPARTMENT | [address] | [place] [address] | | | PATHOLOGY | [address] | | | + + + + + | [facility] DEPARTMENT | [address] | [place] [address] | | | PATHOLOGY | [address] | | | + + + + + PROTHROMBIN TIME (06/25/2005 9:45 AM PST) + + + + + + | Component | Value | Ref Range | Performed | Pathologist | | | | | At | Signature | + + + + + + | INR | 0.90Comment: | 0.90 - 1.20 INR | [facility] | | | | PT INR Therapeutic [...] | + + + + + | [facility] | [address] [facility] | [place] [address] | | | PATHOLOGY | [address] | | | + + + + + | [facility] | [address] [facility] | [place] [address] | | | PATHOLOGY | [address] [...] Performed At | + + + | [id number] Estimated GFR > 60 mL/min/1.73 sq m if non- | [facility] | | 389446 Estimated GFR > 60 mL/min/1.73 sq m [...] | + + + + + | [facility] | [facility] | [place] [address] | | | PATHOLOGY | [address] | | | + + + + + | [facility] | [address] [facility] | [place] [address] | | | PATHOLOGY | [address] | | | + + + + + documented in this encounter Visit Diagnoses Not on filedocumented in this encounter"
--- OUTSIDE RECORDS SUMMARY | ~2019-01-13 | XMS | Clinical Summary ---
Demographics + + + | Address | [address] | | | [place] [address] | + + + | Home Phone [...] + + | Author | [facility] (Historical as of | | | 11-14-18) | + + + | Organization | [facility] (Historical as of | | | 11-14-18) [...] [place] | | | | | [address] | | + + + + + | Najma Sanches | ECON | Unknown | | + + + + + Care Team Providers + +------+ + | Care Bottle House Pumper Name | Role | Phone | + [...] | 04/27/2014 | + + + | [place] (myocardial infarction) | 09/05/2012 | + + [...] +------+-------+ + | MEDICARE | MEDICA | [id number] | | | [address] | | | RE | | | | [place] [address] | | | IP-OP | | | | | + +--------+ +------+-------+ + | MEDICAID | EASTER | [id number] | | | [address] | | | N | | | | [place] | | | [place] | | | | [address] | | | HAT FINISHER | | | | | + +--------+ [...] | 1946 | [phone] [place] [address] | | | demetrius | | | [phone] | | + +--------+ +--------+ + +
--- OUTSIDE RECORDS SUMMARY | ~2019-01-13 | XMS | Encounter Summary ---
Demographics + + + | Address | [address] | | | [place] [address] | + + + | Home Phone [...] Author | [facility] | + + + | Organization | [facility] | + + + | Address | Unknown | + + + | Phone | Unavailable | + + + Support + + + + + | Name | Relationship | Address | Phone | + + + + + | Hector Mack | ECON | [address] | | | | | [place] | | | | | [address] | | + + + + + Care Team Providers + +------+ + | Care Director Cardiovascular Name | Role | Phone | + [...] | Eugenio Mailcode: RPB07 | [address] [place], | | | | | [place], [place] | [place] [address] | | | | | [address] | [phone] | | | | | [phone] | | | +--------+ + + + [...]
--- OUTSIDE RECORDS SUMMARY | ~2019-01-13 | XMS | Encounter Summary ---
Demographics + + + | Address | [address] | | | [place] [address] | + + + | Home Phone [...] [place] | | | | | [address] | | + + + + + Care Team Providers + +------+ + | Care Dehydrogenation Supervisor Name | Role | Phone | [...] 09/07/ | Office | Preoperative | 1, [facility] [address] | CAD (Coronary Artery | | 2008 | Visit | Medicine Clinic at | [facility] [address] | Disease); Gout; DM | | | | [facility] 4th Floor [address] | [place] [address] | Circ Dis Type II, | | | | [address] | | Uncontrolled (HCC); | | | | Mailcode: CH4S | | Obesity; Achalasia; | | | | [facility] | | Panniculitis; | | | | and Healing, | | Bruise; Other | | | | Building 1,4th Floor | | Specified | | | | [place], [place] | | Pre-Operative | | | | [address] | | Examination | | | | [phone] | | | +--------+---------+ + + + [...] uncontrolled(250.72) | | | | | | ([facility]) Obesity | | | | | | [...] + | [facility] DEPARTMENT OF | [address] | [place] [address] | | | PATHOLOGY | [address] | | | + + + + + | [facility] | [address] | [place] [address] | | | PATHOLOGY | [address] [...] + + + + + | [facility] | [address] | [place] [address] | | | PATHOLOGY | [address] | | | + + + + + | [facility] | [address] | [place] [address] | | | PATHOLOGY | [address] [...] + | [facility] DEPARTMENT OF | [address] | [place] [address] | | | PATHOLOGY | [address] | | | + + + + + | [facility] DEPARTMENT | [address] | [place] [address] | | | PATHOLOGY | [address] [...] Performed At | + + + | [id number] Estimated GFR > 60 mL/min/1.73 sq m if non- | [facility] | | Croatian [id number] Estimated GFR > 60 mL/min/1.73 sq m if | DEPARTMENT OF | | Croatian GFR is estimated using [...] + | [facility] DEPARTMENT OF | [address] | [place] [address] | | | PATHOLOGY | [address] | | | + + + + + | [place] DEPARTMENT OF | [address] | [place] [address] | | | PATHOLOGY | [address] [...] | | | | | SHAKIRA GARCIA (0222) | | | | | | on [...] + + + | Please click | [facility] | | on view image for the detailed interpretation from Aarki results. | CARDIOLOGY | | | | + + + + + + + + | Performing | Address | City/State/Zipcode | Phone Number | | Organization | | | | + + + + + | [facility] DEPT OF | [address] | [place], [place] | | | CARDIOLOGY | [address] | [address] | | + + + + + | [facility] OF | [address] | [place], [place] | | | CARDIOLOGY | [address] | [address] | | + + + + + documented in this encounter Visit Diagnoses + + | Diagnosis | + + | CAD (coronary artery disease) Coronary atherosclerosis of unspecified type of vessel, | | [place] or graft | + + | Gout [...]
--- OUTSIDE RECORDS SUMMARY | ~2019-01-13 | XMS | Clinical Summary ---
Demographics + + + | Address | [address] | | | [place] [address] | + + + | Home Phone | | + + + | Preferred Language | Unknown | + + + | Marital Status | | + + + | Anglican Affiliation | PRO | + + + | Race | White | + + + | Ethnic Group | Not or | + + + Author + + + | Author | [facility] | + + + | Organization | [facility] | + + + | Address | Unknown | + + + | Phone | Unavailable | + + + Support + + + + + | Name | Relationship | Address | Phone | + + + + + | Hector Mack | ECON | [address] | | | | | [place] | | | | | [address] | | + + + + + Care Team Providers + +------+ + | Care Director Of Midwifery/Staff Midwife Name | Role | Phone | + +------+ + | uTan Chan MD | PCP | | + +------+ + Source Comments AMY is fully live on both [facility] and [facility] InPatient.[facility] Allergies + + + + + [...] | | | | | | | [address] | | + +--------+ +--------+ + +--------+ | MEDICAID [place] | OHP | xxxxxxxx | 07/01/19 | [phone] | [address] | Medica | | | PLUS | | 10-Pre | 6 | [address] | id | | | OPEN | | sent | | [place] | | | | CARD | | | | [address] | | + +--------+ +--------+ + +--------+ [...] demetrius | | | 4 (Home) | [address] | + +--------+ +--------+ + + Advance Directives + + + + + | Type | Date Recorded | Patient | Explanation | | | | Cloth Layer | | + + + + + | Advance | | | | | Directives and | | | | | Living Will | | | | + + + + + | Power of | | | | | Idea Man | | | | + + + [...]
--- OUTSIDE RECORDS SUMMARY | ~2019-01-13 | XMS | Encounter Summary ---
Demographics + + + | Address | [address] | | | [place] [address] | + + + | Home Phone [...] + + + + + | Hector Brownele | ECON | [address] | | | | | [place] | | | | | [address] | | + + + + + Care Team Providers + +------+ + | Care Chemical Cell Changer Name | Role | Phone | + +------+ + | Tuna Chan MD | PCP | | + [...] | | | | | [address] | | | | | | | [address] | | | | | | | Eugenio [address] | | | | | | | [facility] | | | | | | | [facility] | | | | | | | [place], [place] | | | | | | | [address] | | | | | | | Phone: | | | | | | | [phone] | | | | | | | Fax: | | | | | | | [phone] | +--------+--------+ + + + + Encounter Details +--------+ + + + + | Date | Type | Department | Care Team | Description | +--------+ + + + + | 05/10/ | Hospital | [facility] [address] | Aysha Blackburn | | | 2008 - | Encounter | CAMPUS Dr Andre Crow MD | | | | | [id number] MIMA | | | | 05/11/ | | [place], | | | | 2008 | | [place] [address] | | | +--------+ + + + [...] [facility] PAC[facility] 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 REC NUMBER: [id number] NAME : Germaine Heard DATE : 1945 Admit Date: 05/10/2008 Discharge Date: 05/11/2008 PHYSICIAN'S REQUEST FOR HOME HEALTH SERVICES Relevant History: Location to receive services if other than home: Allergies: Height: Weight: Ordering Physician: [address] [place] [address] Physician to follow for ongoing home health orders: PCP Name: PCP Phone: Discharge Need(s): 1. Transportation Discharge Vendor: Medicaid - [place] Discharge Suggested First Visit/Delivery Date: Discharge Service/Equipment: Environmental Services Tech: Oralia Wang documented in this encounter Plan [...] + + + + | PRODUCT | [id number] | | [facility] | | | UNIT [...] | + + + + + | [facility] DEPARTMENT | [address] | [place] [address] | | | PATHOLOGY | [address] | | | + + + + + | [place] DEPARTMENT OF | [address] [facility] | [place] [address] | | | PATHOLOGY | [address] [...] + + + + | PRODUCT | [id number] | | [facility] | | | UNIT [...] + + | [facility] | [address] | [place] [address] | | | PATHOLOGY | [address] | | | + + + + + | [facility] | [facility] | [place] [address] | | | PATHOLOGY | [address] | | | + + + + + OPERATION RECORD (05/10/2008 12:00 AM PST) + + + | Narrative | Performed At | + + + | [id number] | | | [id number] | | | [id number] ARETHA RAE [id number] | | | Date: 05/10/2008 Attending Surgeon: | | | Aysha Blackburn MD Cloth Folder Hand(s): | | | Lang Pisano M.D. Preoperative [...] hemostasis was ensured. We then placed two 19-Uruguayan Ruel | | | drains in the [...] | | | MD LORIE Arce / PASCUAL [id number] / [id number] / [id number] / D: | | | 05/12/2008 | | + + + + + | Procedure Note | + + | Aysha Blackburn MD - 05/10/2008 12:00 AM [facility] [id number] | | [id number] ARETHA RAE | | [id number] Date: 05/10/2008 Attending Surgeon: | | Aysha Blackburn MD Cloth Folder Hand(s): Lang Pisano M.D. | | Preoperative Diagnosis(es):Panniculitis. [...] ensured. We then | | placed two 19-Uruguayan Ruel drains in the subcutaneous plane. The [...] Crow | | MD LORIE Blackburn / [id number] / [id number] / 76530 / T: 05/12/2008 | | | | [...] w as ensured. We then placed two 19-Uruguayan Ruel drains in the subcutaneous plane. The [...] | | | | | |JAM / | |[id number] / [id number] / 34713 / | | | | | | [...] injection 1 dose, Starting Tue | | 11:00 | | | | [...] + +---------+ +------+--------+---+ | morphine 5 mg/mL TOOL PROFILING MACHINE SET UP OPERATOR infusion | New Bag | 05/10/19 | [...] | | | | | 05/10/08 at 2100, Until | | | [...]
--- OUTSIDE RECORDS SUMMARY | ~2019-01-13 | XMS | Encounter Summary ---
Demographics + + + | Address | [address] | | | [place] [address] | + + + | Home Phone [...] [place] | | | | | [address] | | + + + + + Care Team Providers + +------+ + | Care Kitchen Manager Name | Role | Phone [...] | | | | | Surgery at [facility] [address] [place], [place] | | | | | [address] | [address] | | | | | Mailcode: [facility] | [phone] | | | | | [facility] | | | | | | and Healing, | | | | | | Building 1, 5th | | | | | | Floor [facility] [place] | | | | | | [address] | | | | | | [phone] | | | +--------+---------+ + + + [...]
--- OUTSIDE RECORDS SUMMARY | ~2019-01-13 | XMS | Encounter Summary ---
Demographics + + + | Address | [address] | | | [place] [address] | + + + | Home Phone [...] [place] | | | | | [address] | | + + + + + Care Team Providers + +------+ + | Care Borough Coordinator Name | Role | Phone | [...] 2007 | Registratio | [address] | [address] | | | | n | Eugen[place] Mailcode: RPB07 | [place], [place] | | | | | [place], [place] | [address] | | | | | [address] | [phone] | | | | | [phone] | | | +--------+ + + + [...]
--- OUTSIDE RECORDS SUMMARY | ~2019-01-13 | XMS | Encounter Summary ---
Demographics + + + | Address | [address] | | | [place] [address] | + + + | Home Phone [...] [place] | | | | | [address] | | + + + + + Care Team Providers + +------+ + | Care Jackaroo Name | Role | Phone | + [...] as of this encounter Progress Notes Interface, Presser Cotton Ginning In - 05/24/2005 2:07 AM [facility] [id number] 05/23/2005 05/23/2005 [id number] [place] [address] [place] [address] or May 23, 2005 Bryan Garza M.D. [address] [place] [address] RE: GERMAINE CARIAS MR #: [id number] Dear Dr. Garza: I saw your patient, Mrs. Germaine Carias in my office on , May 23, 2005. I went over her records and those of Dr. Walker in [place]. This pleasant, obese, 59-year-old female has a [...] junction. Dilation was performed up to a 20-Turkish Microvasive balloon, and the patient claims that [...] is unemployed. She smoked, has about a 85-jolq-odib smoking history but has not smoked in [...] Sincerely, Wes Wolff M.D. Ren / PASCUAL [id number] / [id number] / 49630 / cc: Lalo Walker M.D. [facility] [address] [place] [address] documented i n this encounter Plan of Treatment Not on filedocumented as of this encounter Visit Diagnoses Not on filedocumented in this encounter"
--- OUTSIDE RECORDS SUMMARY | ~2019-01-13 | XMS | Encounter Summary ---
Demographics + + + | Address | [address] | | | [place] [address] | + + + | Home Phone [...] [place] | | | | | [address] | | + + + + + Care Team Providers + +------+ + | Care Senior Reservations Agent Name | Role | Phone | [...] + + | 03/12/ | Hospital | [facility] [address] | Renato Chow MD | | | 2010 - | Encounter | [address] | [address] | | | | | [facility] | [place], [place] | | | 03/13/ | | [place], [place] | [address] | | | 2010 | | [address] | [phone] | | | | | [phone] | | | +--------+ + + + [...] re removal. Feel free to call the [facility] urology clinic as needed for any additional questions . Your Follow-Up Plan Follow-up information has not been specified. Other Discharge Orders and Instructions Please contact Urology clinic ([phone]) during business hours or the Urology resident line construction engineer ([phone]) after business hours for: 1. Redness or [...] MD Attending Physician: Renato Chow MD Patient: GREMAINE HEARD [id number] 24H events/Subjective: No events overnight. Pain well [...] 03/13/11 0659 03/13/11699 - 03/14/11 0659 Shift 9608-6047 8830-2003 2752-5661 Daily Total 3655-9331 9285-7876 6841-9111 Daily Total I N T A K E [address] 1080 1600 I.V. 1550 075 088 0551 5 5 Shift Total 1550 1320 1880 4750 5 5 O U T P U T Urine 800 598 340 8601 200 200 Shift Total 800 314 155 5923 200 200 Medication: acetaminophen (aka TYLENOL) tablet [...] DEPARTMENT OF | [address] | [place] [address] | | | PATHOLOGY | [address] [...] | + + + + + | [facility] | [address] | [place] [address] | | | PATHOLOGY | [address] [...] | | | | | | [address] [facility], | | | | | | [place] [address] | | | | | | [phone] | | | | | | | | | | | | [email or web address] Was it Filmed, | | | | | | Alma [...] [facility] | [address] | [place], [place] | | | [facility] | | [address] | | + + + + + [...]
--- OUTSIDE RECORDS SUMMARY | ~2019-01-13 | XMS | Encounter Summary ---
Demographics + + + | Address | [address] | | | [place] [address] | + + + | Home Phone [...] [place] | | | | | [address] | | + + + + + Care Team Providers + +------+ + | Care Bleach Supervisor Name | Role | Phone | [...] as of this encounter Progress Notes Interface, Computer Patternmaker In - 11/28/2005 2:08 AM PDT [id number] ARETHA RAE [id number] Clinic Date: 11/22/2005 Clinic: [facility] [...] conference presentation. Herberth Ayala M.D. Chelsie / [id number] / [id number] / [id number] / 64699 Electronically signed by Herberth Brambila 11-27-2005 02:01:34 PM documented i n this encounter Plan of Treatment Not on filedocumented as of this encounter Visit Diagnoses Not on filedocumented in this encounter"
--- OUTSIDE RECORDS SUMMARY | ~2019-01-13 | XMS | Encounter Summary ---
Demographics + + + | Address | [address] | | | [place] [address] | + + + | Home Phone [...] [place] | | | | | [address] | | + + + + + Care Team Providers + +------+ + | Care Operations Coordinator Name | Role | Phone | [...] Mailcode: | | | | | | [place], [place] | [address] [facility] | | | | | | [address] | Hospital | | | | | | | [place], [place] | | | | | | | [address] | | | | | | | Phone: | | | | | | | [phone] | | | | | | | Fax: | | | | | | | [phone] | +--------+--------+ + + + + Diagnostic [...] CTA | Socorro Genao MD | alyssa [address] | | | | | HEAD WITH | [address] | | | | | CONTRAST | South | Mary Becker | | | | | | [address] | Mailcode: | | | | | | EDUARDO FLORENTINO | [address] [place] | | | | | | [address] | Hospital | | | | | | Phone: | [place], [place] | | | | | | [phone] | [address] | | | | | | Fax: | Phone: | | | | | | [phone] | [phone] | | | | | | | Fax: | | | | | | | [phone] | +--------+--------+ + + + + Diagnostic [...] Mailcode: | | | | | | [place], [place] | [facility] | | | | | | [address] | [place] | | | | | | Phone: | Research | | | | | | [phone] | [place] | | | | | | Fax: | [place], [place] | | | | | | [phone] | [address] | | | | | | | Phone: | | | | | | | [phone] | | | | | | | Fax: | | | | | | | [phone] | +--------+--------+ + + + + Reason [...] NE Mother | | | | | [address]841/KPV12 MIMA | [facility] | | | [birth year]/ | | MONICA [place], | [place] [address] | | | 2012 | | [place] [address] | [phone] | | | | | [phone] | | | | | | | Chaim Vizcarra MD | | | | | | [address] | | | | | | Mary [place], | | | | | | [place] [address] | | | | | | [phone] | | | | | | | [...] chronic back pain, who tripped on some Vaxxasr cords 10 days prior to admission, in [...] fracture, and she was subsequently transferred to [facility] for escalation of care. On comparison [...] Derm follow-up closer to her home in [place]. Medications: Discharge Medication List as of 04/24/2012 [...] Attending Physician: MD Tuan Sethi MD Neurology Alternative Energy Engineer Pager [phone] I saw and evaluated the patient. I agree with the findings and the plan of care as yesika lares in the resident s note. Halley Noriega MD Mud Temperer Department of Neurology [facility] DEPARTMENT: Neurology Attending - [phone] Place of Service: [facility] [address] Date of Service: 04/24/2012 CSN: [id number] Suggestive Modifier: GC - Resident Present Suggested CPT: 27954 - Discharge Day mgmt up to 30 [...] to re-consult, any questions. DANIELLE WYNN PA-C [facility] [address] [place] [address] etrona Wynn PA - 04/23/2012 10:44 AM [...] HCT 35.4* 03/13/2011 7:46 AM HCT [facility] 03/11/2011 5:13 PM WBC 6.8 04/23/2012 7:45 AM WBC 6.4 03/13/2011 7:46 AM WBC See nt 03/11/2011 5:13 PM PLT 209 04/23/2012 7:45 AM PLT 217 03/13/2011 7:46 AM PLT See [facility] 03/11/2011 5:13 PM CULTURE RESULT (no units) [...] indicated. Final Rep ort Resulted: 03/13/11 RLB ([facility]) [facility] [address] [place] [address] STUDY: SPINE CERVICAL 2 VWS FLEX/EXT 04/22/12 [...] otherw ise intact. Motor 5/5 except LUE pelletizer tender 4/5 Sensation intact to light touch Assessment [...] collar Will continue to follow. FABIO JACOBSEN-Matty [facility] [address] [address]/[facility] [place] [address] Halley Haddad MD - 04/23/2012 8:37 AM [...] and plan. VERA COOK MD,MPH Neurology Resident [id number] I performed a history and physical examination [...] it requires holding plavix. Halley Noriega MD Mud Temperer Department of Neurology [facility] DEPARTMENT: Neurology Attending - [phone] Place of Service: - Date of Service: 04/22/2013 CSN: [id number] Suggestive Modifier: None Suggested CPT: 14469 - Initial Visit, Level 2 Suggested Diagnosis: [...] and face w eakness and referred to [facility] for possible cervical fracture. MRI suggests [...] ridgeSocorro shah MD - 04/22/2012 7:51 AM [facility] NEUROSURGERY PROGRESS NOTE Author: SOCORRO JARRELL MD [...] Tongue midline Trace left pronator drift Slowed dzdqnt-km-ygkc movements with mild end-point dysmetria 5/5 bilateral [...] Rose MD - 04/22/2012 7:47 AM PST [facility] Progress Note Team Pager: [phone] Attendin Attending Gore Seamer: Primary Service Attending: MD Bryan Espinosa MD [...] 0659 04/22/12 07 - 04/23/12 0659 Shift 0535-3392 2475-5753 7007-2547 Daily Total 9245-9604 4795-0948 2069-7929 Daily Total I N T A K [...] therapy once cleared OTHER Dispo Transfer to [facility] pending neuro recs Relevant Risks: This patient is currently at risk for the following: cerebral edema, barry ctrolyte imbalance, hyponatremia and ischemic stroke; acute renal failure, dysphagia, edema, ICU delirium, malnutrition and UTI. This patient has been staffed with Dr. Black, attending physician, who agrees with the [facility] assessment and plan. Viktoriya Downs MD PGY2 Neurology Pager [phone] documented in t his encounter Plan of [...] MARQUAM | [address] | [place], [place] | | | DELICIA LAUREL OF [facility] | [facility] | [address] | | | TESTS | | | [...] [facility] | [address] | [place] [address] | | | SERVICES, CORE | MARY [...] [facility] | [address] | [place] [address] | | | SERVICES, CORE | PARK [...] + + + + + | [facility] | [address] | [place] [address] | | | BLU GUTIERREZ | MARY [...] (H) | 60 - 99 mg/dL | [facility] - | | | GLUCOSE, | [...] PAPPAS | 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 The patient was seen and examined with | | | the attending physician. We discussed the recommendations listed | | | above. Trevor Sosa M.D. Resident, Department of | | | Dermatology [facility] [place] Attending | | | Physician Attestation I personally interviewed, examined the patient, | | | and discussed management with the resident. I reviewed and edited | | | the resident's note and agree with the documented findings and plan | | | of care. Khoa Manuel MD, PhD Mud Temperer, | | | Department of Dermatology [facility] | | | DEPARTMENT: [id number] [facility] Place of Service:- | | | Inpatient Date of Service: 04/23/2012 MEDICAL RECORD NUMBER | | | [id number] CSN: [id number] Suggested Modifier: GC Resident Involved: | | | GC Resident Involved Suggested CPT: 52872 - Initial, Detailed; Low | | | [...] medications.She mentions that she was seen by [facility] | | dermatology in 2008 with [...] of Education: N/A Occupational History | | [employer] Social History Main Topics | | Smoking [...] mg, 1 mg, | | Oral, DAILY, iVktoriya Downs MD, 1 mg at 04/23/12 0951buPROPion [...] | follow-up closer to her home in [place]; would f/u with a wafer fabrication technician there if not | | improved on topicalsPlease contact us with further questions. The patient was seen and | | examined with the attending physician. We discussed the recommendations listed | | above.Trevor Sosa M.D.Resident, [facility] | | [place] Attending Physician Yemi personally interviewed, examined the | | patient, and discussed management with the resident. I reviewed and edited the | | resident's note and agree with the documented findings and plan of care. Khao Lee | | MD Kaleb, PhDAssistant Professor, [facility] | | [facility] DEPARTMENT: [id number] [facility] of Service:- Inpatient Date | | of Service: 04/23/2012 : [id number] Modifier: | | GC Resident Involved: GC Resident InvolvedSuggested CPT: 24175 - Initial, Detailed; Low | | complex [...] to follow-up closer to her home in [place]; would f/u with a wafer fabrication technician there if not improved on topicals | | | |Please contact us with further questions. The patient was seen and examined with the attend ing physician. We discussed the recommendations listed above. | | | | | |Trevor Sosa M.D. | |Resident, Department of Dermatology | |[facility] | | | |Attending Physician Attestation | |I personally interviewed, examined the patient, and discussed management with the resident. I reviewed and edited the resident's note and agree with the documented findings and plan of care. | | | | | |Khoa Manuel MD, PhD | |Mud Temperer, Department of Dermatology | |[facility] | | | |[facility] DEPARTMENT: [id number] [facility] | |Place of Service:04747- Inpatient | |Date of Service: 04/23/2012 | | | |CSN: [id number] | |Suggested Modifier: GC Resident Involved: GC Resident Involved | |Suggested CPT: 35847 - Initial, Detailed; Low complex 30 min [...] AMY PAPPAS | [address] | [place], [place] | | | DELICIA POINT OF CARE | [address] | [address] | | | TESTS | | | [...] + | [facility] - | [address] | [place] [address] | | | [place] | | | [...] + | [facility] - | [address] | [place] [address] | | | [place] | | | [...] + | [facility] - | [address] | [place] [address] | | | [place] | | | | + + + [...] MARQUAM | [address] | [place], [place] | | | MARLEEN NESIBTT OF CARE | [address] | [address] | | | TESTS | | | [...] | + + + + + | [facility] - | [address] | [place] [address] | | | [place] | | | [...] | prevalent in the general | | [facility] | | | | population, and in [...] | + + + + + | [facility] - | [address] | [place] [address] | | | [place] | | | [...] if | | | | | | [id number] >400: | | | | | | [...] + | [facility] - | [address] | [place] [address] | | | [place] | | | | + + + [...] by | | | | | | [employer],[address] | | | | | | Neri Alvarez, [facility] | | | | | | [address] | | | | | | [phone].[facility]. | | | | | | Alma [...] [facility] | [address] | [place], [place] | | | UN[facility] | | [address] | | + + + + + [...] + | [facility] - | [address] | [place] [address] | | | [place] | | | [...] | [facility] - | [address] | [place] [address] | | | [place] | | | [...] + | [facility] - | [address] | [place] [address] | | | [place] | | | | + + + [...] [facility] | [address] | [place] [address] | | | SERVICES, CORE | PARK [...] + + + + + + | DIAMOND FINISHING SUPERVISOR AB | Negative | Negative | [facility] [...] 7.0-10 | SERVICES, | | >10 Abraham DIAMOND FINISHING SUPERVISOR AB U/ml <5.0 5.0-10 | SPECIAL IMM + | | >10 Abarham Scl-70 U/ml <7.0 7.0-10 | COAG | [...] | + + + + + | [facility] | [address] | [place] [address] | | | SERVICES, SPECIAL | MARY [...] | + + + + + | [facility] | [address] | [place] [address] | | | SERVICES, SPECIAL | PARK [...] | + + + + + | [facility] | [address] [facility] | [place] [address] | | | SERVICES, CORE | MARY [...] | + + + + + | [facility] | [address] | [place] [address] | | | SERVICES, CORE | MARY [...] | + + + + + | [facility] | [address] | [place] [address] | | | SERVICES, CORE | MARY [...] | | | | | approval / STVEE | | | | | | GARETT [...] ELYSE | [address] | [place], [place] | | | CITLALI NESBITT | [facility] | [address] | | | TESTS | | | [...] PAPPAS | [address] | [place], [place] | | | MARLEEN NESBITT OF CARE | [address] | [address] | | | TESTS | | | [...] PAPPAS | [address] | [place], [place] | | | MARLEEN NESBITT OF [facility] | [facility] | [address] | | | TESTS | | | [...] [facility] | [address] | [place] [address] | | | SERVICES, CORE | PARK [...] | + + + + + | [facility] | [address] | [place] [address] | | | SERVICES, CORE | MARY [...] | | | | Final | | [place] | | | | CULTURE RESULT:Multiple | [...] + | [facility] - | [address] | [place] [address] | | | [place] | | | [...] [facility] | [address] | [place] [address] | | | SERVICES, BLU | [address] | | | + + + [...] - ELYSE | [address] | [place], [place] | | | TROY LA[facility]L [facility] | [address] | [address] | | | TESTS | | | [...] [facility] | [address] | [place] [address] | | | SERVICES, CORE | PARK [...] | + + + + + | [employer] | [address] | [place] [address] | | | SERVICES, | [address] [...] [facility] | [address] | [place] [address] | | | SERVICES, | [address] [...] + + + + + | [facility] | [address] | [place] [address] | | | SERVICESBLU | [address] [...] [facility] | [address] | [place] [address] | | | SERVICES, CORE | [address] [...] [facility] | [address] | [place] [address] | | | SERVICES, CORE | MARY [...]
--- OUTSIDE RECORDS SUMMARY | ~2019-01-13 | XMS | Encounter Summary ---
Demographics + + + | Address | [address] | | | [place] [address] | + + + | Home Phone [...] [place] | | | | | [address] | | + + + + + Care Team Providers + +------+ + | Care Emts Name | Role | Phone | + [...] Pranay | | | | | | [address] | [address] | | | | | | [address] | [address] | | | | | | [address] | [place], [place] | | | | | | [place], [place] | [address] | | | | | | [address] | | | | | | | Phone: | | | | | | | [phone] | | | | | | | Fax: | | | | | | | [phone] | | +--------+--------+ + + + + Encounter Details +--------+---------+ + + + | Date | Type | Department | Care Team | Description | +--------+---------+ + + + | 11/20/ | Office | Cardiology - | Pranay Melendez MD | Dysmetabolic | | 2005 | Visit | General [address] [facility] | | Syndrome X; CAD | | | | [address] | | (Coronary Artery | | | | Mailcode: [id number] | | Disease); Sleep | | | | [facility] | | Apnea; Gout; DM Circ | | | | [address] [place], | | Dis Type II, | | | | [place] [address] | | Uncontrolled ([facility]); | | | | [phone] | | Dyslipidemia | +--------+---------+ + + [...] Notes Pranay Melendez - 11/21/2005 9:[address] [facility] is a morbidly obese woman with [...] risk will be manageable. Furthermore, in the longwall headgate operator weigh t loss will afford cardiovascualr prtection. [...] DEPARTMENT OF | [address] | [place] [address] | | | PATHOLOGY | [address] | | | + + + + + | [facility] | [address] | [place] [address] | | | PATHOLOGY | [address] | | | + + + + + documented in this encounter Visit Diagnoses + + | Diagnosis | + + | Dysmetabolic syndrome X Dysmetabolic Syndrome X | + + | CAD (coronary artery disease) Coronary atherosclerosis of unspecified type of vessel, | | lovelock or graft | + + | Sleep [...]
--- OUTSIDE RECORDS SUMMARY | ~2019-01-13 | XMS | Encounter Summary ---
Demographics + + + | Address | [address] | | | [place] [address] | + + + | Home Phone | | + + + | Preferred Language | Unknown | + + + | Marital Status | | + + + | Mormonism Affiliation | PRO | + + + | Race | White | + + + | Ethnic Group | Not or | + + + Author + + + | Author | [facility] | + + + | Organization | [facility] | + + + | Address | Unknown | + + + | Phone | Unavailable | + + + Support + + + + + | Name | Relationship | Address | Phone | + + + + + | Hector Mack | ECON | [address] | | | | | [place] | | | | | [address] | | + + + + + Care Team Providers + +------+ + | Care Engine Repairer Service Name | Role | Phone | + [...] | Eugenio Mailcode: [id number] | [address] [place], | | | | | [place], [place] | [place] [address] | | | | | [address] | [phone] | | | | | [phone] | | | +--------+ + + + [...]
--- OUTSIDE RECORDS SUMMARY | ~2019-01-13 | XMS | Encounter Summary ---
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 [address] [place], [place] RE: GERMAINE CARIAS MR #: [id number] Dear Dr. Chan: Your patient Ms. Germaine Carias returned for an office visit at [facility] on , July 25, 2005. She, as [...] this kind referral. Sincerely, Wes Wolff M.D. [facility] / [id number] / [id number] / [id number] / cc: Papi Johnson M.D. [facility] General Surgery documented i n this encounter Plan of Treatment Not on filedocumented as of this encounter Visit Diagnoses Not on filedocumented in this encounter"
--- OUTSIDE RECORDS SUMMARY | ~2019-01-13 | XMS | Encounter Summary ---
Demographics + + + | Address | [address] [place] [address] | | | [place] [address] | + + + | Home Phone [...] [place] | | | | | [address] | | + + + + + Care Team Providers + +------+ + | Care Sheet Heater Name | Role | Phone | + [...] removal) | | | | Surgery at [facility] [address] | | | | | | [address] | | | | | | Mailcode: CH5P | | | | | | [facility] | | | | | | and Healing, | | | | | | Building 1 | | | | | | Floor [place], [place] | | | | | | [address] | | | | | | [phone] | | | +--------+ + + + [...]
--- OUTSIDE RECORDS SUMMARY | ~2019-01-13 | XMS | Encounter Summary ---
Demographics + + + | Address | [address] | | | [place] [address] | + + + | Home Phone [...] [place] | | | | | [address] | | + + + + + Care Team Providers + +------+ + | Care Director Of Adult Epilepsy Name | Role | Phone | + [...] | | 2010 | | [address] | [address] | Clarification | | | | Mailcode: CH10U | [place], [place] | | | | | [facility] | [address] | | | | | and Healing, | [phone] | | | | | Building | | | | | | Floor [place], [place] | | | | | | [address] | | | | | | [phone] | | | +--------+ + + + [...]
--- OUTSIDE RECORDS SUMMARY | ~2019-01-13 | XMS | Encounter Summary ---
Demographics + + + | Address | [address] | | | [place] [address] | + + + | Home Phone [...] [place] | | | | | [address] | | + + + + + Care Team Providers + +------+ + | Care Corrective Therapy Aide Teacher Name | Role | Phone [...] | | | | Mailcode: CH10U | [place], [place] | | | | | [facility] | [address] | | | | | and Healing, | [phone] | | | | | [facility] | | | | | | Floor [place], [place] | | | | | | [address] | | | | | | [phone] | | | +--------+---------+ + + + [...] Resident Division of Urology and Renal Transplantation [facility] oe Hdez - 10/19/2007 1:51 PM [...] Lab) | | | | | | [facility] | | | | | | [address] | | | [address] | | | | | | [place], [place] | | | | | | [id number]: Test | | | | | | performed at [place] | | | | | | [facility] | | | | | | Laboratory. | | | | + + + + + + + + | Specimen | + + | Urine - Urine | + + + + + + + | Performing | Address | City/State/Zipcode | Phone Number | | Organization | | | | + + + + + | [facility] | [address] | [place] [address] | | | LAB-MICRO | | | [...] BRITTNEY | [address] | [place], [place] | | | DELICIA POINT OF CARE | [address] | [address] | | | TESTS | | | | + + + + + | [facility] | [address] | [place], [place] | | | TESTS | [address] | [address] | | + + + + + documented in this encounter Visit Diagnoses + + | Diagnosis | + + | Urolithiasis - Primary Urinary calculus, unspecified | + + documented in this encounter"
--- OUTSIDE RECORDS SUMMARY | ~2019-01-13 | XMS | Encounter Summary ---
Demographics + + + | Address | [address] | | | [place] [address] | + + + | Home Phone [...] [place] camacho | | | | | [address] | | + + + + + Care Team Providers + +------+ + | Care Horticulturalist Name | Role | Phone | + [...] [facility] [address] | | Intertrigo; CAD | | | | [address] | | (Coronary Artery | | | | Mailcode: [facility] | | Disease); DM Circ | | | | [facility] | | Dis Type II, | | | | and Healing, | | Uncontrolled ([facility]) | | | | Building 1, | | | | | | Floor [place], [place] | | | | | | [address] | | | | | | [phone] | | | +--------+---------+ + + + [...] surgeries scheduled to take place on the jarrell at the [facility]: Surgeries scheduled in the [facility] ( North): registration is located on the 4th floor of [facility] (Day Surgery). Surgeries scheduled in the [facility]: registration is located on the 9th floor. Surgeries scheduled in [facility]: registration is located on the 6th floor. Surgeries scheduled in the [facility]: registration is located i n the [facility] on the first floor. For surgeries scheduled to take place at the [facility] Healing: registration is [...] Accession | | | | | | #:[id number] CC | | | | | | [...] | | | | | | at [facility] | | | | | | Science | | | | | | [place].ASSESSMENT: | | | | | | Negative [...] + + | [facility] | [facility] | [place] [address] | | | PATHOLOGY | [address] | | | + + + + + | [facility] DEPARTMENT OF | [facility] | [place] [address] | | | PATHOLOGY | [address] [...] | + + + + + | [facility] DEPARTMENT OF | [address] | [place] [address] | | | PATHOLOGY | [address] | | | + + + + + | [facility] DEPARTMENT OF | [address] | [place] [address] | | | PATHOLOGY | [address] [...] | + + + + + | [facility] DEPARTMENT OF | [address] | [place] [address] | | | PATHOLOGY | [address] | | | + + + + + | [facility] DEPARTMENT OF | [address] | [place] [address] | | | PATHOLOGY | [address] [...] Performed At | + + + | [id number] Estimated GFR > 60 mL/min/1.73 sq m if non- | [facility] | | [place] [id number] Estimated GFR > 60 mL/min/1.73 sq m if | DEPARTMENT OF | | [place] GFR is estimated using the MDRD equation [...] + + | [facility] | [facility] | [place] [address] | | | PATHOLOGY | [address] | | | + + + + + | [facility] | [address] | [place] [address] | | | PATHOLOGY | [address] [...] DEPARTMENT OF | [address] | [place] [address] | | | PATHOLOGY | [address] | | | + + + + + | [facility] DEPARTMENT OF | [address] | [place] [address] | | | PATHOLOGY | [address] | | | + + + + + documented in this encounter Visit Diagnoses + + | Diagnosis | + + | Panniculitis - Primary Panniculitis, unspecified site | + + | Intertrigo Other specified erythematous condition | + + | CAD (coronary artery disease) Coronary atherosclerosis of unspecified type of vessel, | | crow or graft | + + | Type II or unspecified type diabetes mellitus with peripheral circulatory disorders, | | uncontrolled(250.72) Type II or unspecified type diabetes mellitus with peripheral | | circulatory disorders, uncontrolled | + + documented in this encounter
--- OUTSIDE RECORDS SUMMARY | ~2019-01-13 | XMS | Encounter Summary ---
Demographics + + + | Address | [address] | | | [place] [address] | + + + | Home Phone [...] [place] camacho | | | | | [address] | | + + + + + Care Team Providers + +------+ + | Care Rayon Coner Name | Role | Phone | + [...] | | | | | | [place] [address] | | | +--------+ + + + [...] | + + | 02/06/2006 11:10 AM [facility] Anesthesia PostOp Report | | | | Patient: GERMAINE CARIAS [facility] Rec: [id number] Sex F Bdate: 1945 | | Date/Time Data | | Entered Into [facility] | | Anesth PostOp | | Surgery Date [id number] 02/06/06 11:10 | | Anesthesiologist OLEG ASCENCIO 02/06/06 11:10 | | Resident Anesthesiolog JULIEN FRYE 02/06/06 11:10 | | | + + documented in this encounter Visit Diagnoses Not on filedocumented in this encounter"
--- OUTSIDE RECORDS SUMMARY | ~2019-01-13 | XMS | Encounter Summary ---
Demographics + + + | Address | [address] | | | [place] [address] | + + + | Home Phone [...] [place]acho | | | | | [address] | | + + + + + Care Team Providers + +------+ + | Care Mud Mixer Helper Name | Role | Phone | [...] | | | | | | [place] [address] | | | +--------+--------+ + + + [...]
--- OUTSIDE RECORDS SUMMARY | ~2019-01-13 | XMS | Encounter Summary ---
Demographics + + + | Address | [address] | | | [place] [address] | + + + | Home Phone [...] [place]acho | | | | | [address] | | + + + + + Care Team Providers + +------+ + | Care After School Coordinator Name | Role | Phone | [...] 2005 | Registratio | [address] | [phone] | | | | n | [address] Mailcode: [id number] | | | | | | [place], [place] | | | | | | [address] | | | | | | [phone] | | | +--------+ + + + [...]
--- OUTSIDE RECORDS SUMMARY | ~2019-01-13 | XMS | Encounter Summary ---
Demographics + + + | Address | [address] | | | [place] [address] | + + + | Home Phone [...] [place] camacho | | | | | [address] | | + + + + + Care Team Providers + +------+ + | Care Saw Sharpener Name | Role | Phone | + [...] | | | | Mailcode: CH10U | [place], [place] | | | | | [facility] | [address] | | | | | and Sonal, | [phone] | | | | | [facility] | | | | | | Floor [place], [place] | | | | | | [address] | | | | | | [phone] | | | +--------+---------+ + + + [...] 1 Years of Education: N/A Occupational History [employer] Social History Main Topics Tobacco Use: Quit [...] PAPPAS | [address] | [place], [place] | | | DELICIA POINT OF CARE | [address] | [address] | | | TESTS | | | | + + + + + | AMY-POINT OF CARE | [address] | [place], [place] | | | TESTS | [address] | [address] | | + + + + + documented in this encounter Visit Diagnoses + + | Diagnosis | + + | Urolithiasis - Primary Urinary calculus, unspecified | + + documented in this encounter"
--- OUTSIDE RECORDS SUMMARY | ~2019-01-13 | XMS | Encounter Summary ---
Demographics + + + | Address | [address] | | | [place] [address] | + + + | Home Phone [...] [place] | | | | | [address] | | + + + + + Care Team Providers + +------+ + | Care Architectural Project Manager Name | Role | Phone [...] | MD [address] | ([place] ) | | | | Mailcode: CH10U | [place], [place] | | | | | [facility] | [address] | | | | | and Healing, | [phone] | | | | | [facility] | | | | | | Floor [place], [place] | | | | | | [address] | | | | | | [phone] | | | +--------+--------+ + + + [...]
--- OUTSIDE RECORDS SUMMARY | ~2019-01-13 | XMS | Encounter Summary ---
Demographics + + + | Address | [address] | | | [place] [address] | + + + | Home Phone [...] [place] cam[place] | | | | | [address] | | + + + + + Care Team Providers + +------+ + | Care Investment Specialist Name | Role | Phone | [...] | Visit | Medical at [facility] 16 | FABIO Figueredo [address] | (Primary Dx) | | | | Floor [address] | [address] [place], | | | | | Ave Mailcode: CH16D | [place] [address] | | | | | [facility] | [phone] | | | | | and Healing, | | | | | | Building | | | | | | Floor [place], [place] | | | | | | [address] | | | | | | [phone] | | | +--------+---------+ + + + [...] in 06/06 --s/p CABG in 2000 in [facility] --s/p cholecystectomy 35 years ago [...] weeks Julia Buckley PA-C Department of Dermatology [facility] and [facility] documented in this encounter Plan of Treatment Not on filedocumented as of this encounter Visit Diagnoses + + | Diagnosis | + + | 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
--- OUTSIDE RECORDS SUMMARY | ~2019-01-13 | XMS | Encounter Summary ---
Demographics + + + | Address | [address] | | | [place] [address] | + + + | Home Phone [...] [place] camacho | | | | | [address] | | + + + + + Care Team Providers + +------+ + | Care Data Designer Name | Role | Phone | [...] (Patients | | | | Surgery at [facility] [address] | | has some | | | | [address] | | concerns, pain | | | | Mailcode: [facility] | | issues) | | | | [facility] | | | | | | and Healing, | | | | | | Building 1, 5th | | | | | | Floor [place], [place] | | | | | | [address] | | | | | | [phone] | | | +--------+ + + + [...]
--- OUTSIDE RECORDS SUMMARY | ~2019-01-13 | XMS | Encounter Summary ---
Demographics + + + | Address | [address] | | | [place] [address] | + + + | Home Phone [...] [place] | | | | | [address] | | + + + + + Care Team Providers + +------+ + | Care Axle Polisher Name | Role | Phone | [...] | Activity | [address] | [address] | | | | | [address] Mailcode: RPB07 | [place], [place] | | | | | [place], [place] | [address] | | | | | [address] | [phone] | | | | | [phone] | | | +--------+ + + + [...]
--- OUTSIDE RECORDS SUMMARY | ~2019-01-13 | XMS | Encounter Summary ---
Demographics + + + | Address | [address] | | | [place] [address] | + + + | Home Phone [...] [place] | | | | | [address] | | + + + + + Care Team Providers + +------+ + | Care Overlock Elastic Attacher Name | Role | Phone | + [...] [place] | | | | | | [address] | | | +--------+ + + + [...]
--- OUTSIDE RECORDS SUMMARY | ~2019-01-13 | XMS | Encounter Summary ---
Demographics + + + | Address | [address] | | | [place] [address] | + + + | Home Phone | | + + + | Preferred Language | Unknown | + + + | Marital Status | | + + + | Mandaen Affiliation | PRO | + + + | Race | White | + + + | Ethnic Group | Not or | + + + Author + + + | Author | [facility] | + + + | Organization | [facility] | + + + | Address | Unknown | + + + | Phone | Unavailable | + + + Support + + + + + | Name | Relationship | Address | Phone | + + + + + | Hector Mack | ECON | [address] | | | | | [place] | | | | | [address] | | + + + + + Care Team Providers + +------+ + | Care Aircraft Landing Gear Inspector Name | Role | Phone | [...] | | | | | | [address] [place], [place] | | | | | | [address] | | | | | | [phone] | | | +--------+---------+ + + + [...] of surgical weight loss procedure. [facility] on 02/05[facility]06 Last 1 Wt Readings: [...] has been cleared for surgery by her association executive, Dr. Melendez. She states she has completed dietary consultation and psychological evaluation in [facility]. Those records have been requested. Current [...] REFLUX DISEASE) SLEEP APNEA Past Surgical History: AR CABG, VEIN, FOUR HX APPENDECTOMY HX CHOLECYSTECTOMY [...]
--- OUTSIDE RECORDS SUMMARY | ~2019-01-13 | XMS | Encounter Summary ---
Demographics + + + | Address | [address] | | | [place] [address] | + + + | Home Phone [...] [place] | | | | | [address] | | + + + + + Care Team Providers + +------+ + | Care Supervisory Lifeguard Name | Role | Phone | + [...] | Mary Becker Mailcode: | Mary Becker [place], | | | | | [address] Physician's | [place] [address] | | | | | [address] | [phone] | | | | | [place], [place] | | | | | | [address] | | | | | | [phone] | | | +--------+ + + + [...] | + +---------+ + + | [facility] DEPARTMENT OF | | | | | RADIOLOGY | | | | + +---------+ + + documented in this encounter Visit Diagnoses Not on filedocumented in this encounter"
--- OUTSIDE RECORDS SUMMARY | ~2019-01-13 | XMS | Encounter Summary ---
Demographics + + + | Address | [address] | | | [place] [address] | + + + | Home Phone [...] [place] | | | | | [address] | | + + + + + Care Team Providers + +------+ + | Care Medical Asst Name | Role | Phone | + [...] Procedure Note | + + | Interface, Job Placement Specialist In - 02/05/2006 12:00 AM PST | | [id number] | | [id number] ANTONIETTAMACK GERMAINE [id number] | | | | Date: 02/05/2006 | | | | Attending Surgeon: Papi Johnson M.D. | | | | Director Data Processing(s): Darrel Dunn M.D. | | | | [...] | | DS / HS | | [id number] / [id number] / [id number] / [id number] | | | | | | | | | | | | Reviewed or Edited By Darrel Dunn MD on 05-29-2006 | | Electronically signed by Papi Johnson 05-29-2006 11:17:53 AM | | | | | + + + + | Transcriptions | + + | Interface, Job Placement Specialist In - 02/20/2006 2:34 AM PST | | [id number] | | [id number] ARETHA HERRON [id number] | | | | Date: 02/05/2006 | | | | Attending Surgeon: Herberth Ayala M.D. | | | | Director Data Processing(s): Darrel Dunn M.D. | | | | [...] | | | RWO / | | [id number] / [id number] / [id number] / [id number] | | | | | | | | | | | | Electronically signed by Herberth Brambila 02-19-2006 11:24:19 AM | + + documented in this encounter Visit Diagnoses Not on filedocumented in this encounter"
--- OUTSIDE RECORDS SUMMARY | ~2019-01-13 | XMS | Encounter Summary ---
Demographics + + + | Address | [address] | | | [place] [address] | + + + | Home Phone [...] [place] | | | | | [address] | | + + + + + Care Team Providers + +------+ + | Care Hand Cigar Making Supervisor Name | Role | Phone | [...]
--- OUTSIDE RECORDS SUMMARY | ~2019-01-13 | XMS | Encounter Summary ---
Demographics + + + | Address | [address] | | | [place] [address] | + + + | Home Phone [...] [place] | | | | | [address] | | + + + + + Care Team Providers + +------+ + | Care Traffic Signal Technician Name | Role | Phone | [...] 2007 | Registratio | [address] | [address] | | | | n | Eugenio Mailcode: RPB07 | [place], [place] | | | | | [place], [place] | [address] | | | | | [address] | [phone] | | | | | [phone] | | | +--------+ + + + [...]
--- OUTSIDE RECORDS SUMMARY | ~2019-01-13 | XMS | Encounter Summary ---
Demographics + + + | Address | [address] | | | [place] [address] | + + + | Home Phone [...] [place] | | | | | [address] | | + + + + + Care Team Providers + +------+ + | Care Optics Test Technician Name | Role | Phone | [...] | | | | CONSULT TO | [place], [place] | Mailcode: | | | | | [place] | [address] | [facility] | | | | | SKIN ABD [place] | | for Health | | | | | REDUCTION | | and Healing, | | | | | OF LARGE | | Building 1, | | | | | BREAST | | 5th Floor | | | | | Procedure to | | [place], [place] | | | | | be | | [address] | | | | | performed: | | Phone: | | | | | breast | | [phone] | | | | | reduction | [...] | | | | | | | ([address]) and | | | | | | | Reduction of | | | | | | | large | | | | | | | breast | | | | | | | ([address]) | | | +--------+--------+ + + + [...] Dx) | | | | Surgery at [facility] [address] | [place], [place] | | | | | [address] | [address] | | | | | Mailcode: [facility] | [phone] | | | | | [facility] | | | | | | and Healing, | | | | | | Building 1, 5th | | | | | | Floor [place], [place] | | | | | | [address] | | | | | | [phone] | | | +--------+---------+ + + + [...] 18 years ago Occupation: unemployed, lives in [place] Family History Problem Relation Heart Mother Diabetes [...] per side. Plan: --Patient will followup with odd piece checker, who will re-evaluate her rash prior to proceedi ng with breast surgery. Requested that derm forward their note to us. --Our sustainable design consultant will provide the patient with a [...]
--- OUTSIDE RECORDS SUMMARY | ~2019-01-13 | XMS | Encounter Summary ---
Demographics + + + | Address | [address] | | | [place] [address] | + + + | Home Phone [...] [place] | | | | | [address] | | + + + + + Care Team Providers + +------+ + | Care Acura Sales Consultant Name | Role | Phone [...] [place] | | | | | | [address] | | | +--------+ + + + [...]
--- OUTSIDE RECORDS SUMMARY | ~2019-01-13 | XMS | Encounter Summary ---
Demographics + + + | Address | [address] | | | [place] [address] | + + + | Home Phone [...] [place] | | | | | [address] | | + + + + + Care Team Providers + +------+ + | Care Application Security Engineer Name | Role | Phone | + +------+ + | Tuan Chan MD | PCP | | + +------+ + Encounter Details +--------+ + + + + | Date | Type | Department | Care Team | Description | +--------+ + + + + | 08/05/ | Results | Dermatology | Khoa Manuel, | | | 2008 | Only | Medical at [facility] 16 | ,PhD Gloria | | | | | Floor [address] | Allergy Asthma | | | | | [place] Mailcode: CH16D | Dermatology [address] | | | | | [facility] | [facility] | | | | | and Healing, | [place] [address] | | | | | [facility] | [phone] | | | | | Floor [place], [place] | | | | | | [address] | | | | | | [phone] | | | +--------+ + + + [...] | + +--------+ + + + | DERMATOPATHOLOGY([facility] Routin | 08/05/2008 | | Results for this | | [facility]) | e | | | procedure are [...] | | | | | MNT) | [id number] | | | | | | DESCRIPTION:Punch [...] + + + | [facility] | Mail[address]al[address], [address] | [place] [address] | | | DERMATOPATHOLOGY | [address] | | | + + + + + documented in this encounter Visit Diagnoses Not on filedocumented in this encounter"
--- OUTSIDE RECORDS SUMMARY | ~2019-01-13 | XMS | Encounter Summary ---
Demographics + + + | Address | [address] | | | [place] [address] | + + + | Home Phone [...] [place] | | | | | [address] | | + + + + + Care Team Providers + +------+ + | Care X Ray Electronics Wiring Technician Name | Role | Phone | [...] | Office | Preoperative | 1, [facility] [address] | Other Specified | | 2007 | Visit | Medicine Clinic at | [address] | Pre-Operative | | | | [facility] 4th Floor [address] | [place] [address] | Examination (Primary | | | | [address] | | Dx) | | | | Mailcode: CH4S | | | | | | [facility] | | | | | | and Healing, | | | | | | Building 1,4th Floor | | | | | | [place], [place] | | | | | | [address] | | | | | | [phone] | | | +--------+---------+ + + + [...] + + + + + | [facility] DEPARTMENT OF | [address] [address] [address] | [place] [address] | | | PATHOLOGY | [address] | | | + + + + + | [facility] DEPARTMENT OF | [address] [facility] [address] | [place] [address] | | | PATHOLOGY | [address] [...] Performed At | + + + | [id number] Estimated GFR = 48 mL/min/1.73 sq m if non- | [facility] | | [id number] Estimated GFR = 59 mL/min/1.73 sq m [...] + + + | [facility] | [address] | [place] [address] | | | PATHOLOGY | [address] | | | + + + + + | [facility] DEPARTMENT | [address] | [place] [address] | | | PATHOLOGY | [address] [...] view image for the detailed interpretation from Transmit [employer] results. | CARDIOLOGY | | | | + + + + + + + + | Performing | Address | City/State/Zipcode | Phone Number | | Organization | | | | + + + + + | [facility] DEPT OF | [address] | [place], [place] | | | CARDIOLOGY | [address] | [address] | | + + + + + | [facility] DEPT OF | [address] | [place], [place] | | | CARDIOLOGY | [facility] | [address] | | + + + + + documented in this encounter Visit Diagnoses + + | Diagnosis | + + | Other specified pre-operative examination - Primary | + + documented in this encounter
--- OUTSIDE RECORDS SUMMARY | ~2019-01-13 | XMS | Encounter Summary ---
Demographics + + + | Address | [address] | | | [place] [address] | + + + | Home Phone [...] [place] | | | | | [address] | | + + + + + Care Team Providers + +------+ + | Care Food And Beverage Server Name | Role | Phone | [...] 01/14/ | Office | Preoperative | 1, [facility] Groutman [address] | Panniculitis; CAD | | 2007 | Visit | Medicine Clinic at | [facility] [address] | (Coronary Artery | | | | [facility] 4th Floor [address] | [place] [address] | Disease); DM Circ | | | | [address] | | Dis Type II, | | | | Mailcode: CH4S | | Uncontrolled (HCC); | | | | [facility] | | Other Specified | | | | and Healing, | | Pre-Operative | | | | Building 1,4th Floor | | Examination | | | | [place], [place] | | | | | | [address] | | | | | | [phone] | | | +--------+---------+ + + + [...] | + + +--------+ + + | [place] COLLECTION VENOUS | Procedures | Routin | [...] | [place] DEPARTMENT OF | [address] | [place] [address] | | | PATHOLOGY | [address] | | | + + + + + | [place] DEPARTMENT OF | [address] | [place] [address] | | | PATHOLOGY | [address] [...] | [facility] DEPARTMENT OF | [address] | [place] [address] | | | PATHOLOGY | [address] | | | + + + + + | [facility] DEPARTMENT OF | [address] | [place] [address] | | | PATHOLOGY | [address] [...] | [facility] DEPARTMENT OF | [address] | [place] [address] | | | PATHOLOGY | [address] | | | + + + + + | [facility] DEPARTMENT OF | [address] | [place] [address] | | | PATHOLOGY | [address] [...] | + + + + + | [facility] | [address] | [place] [address] | | | PATHOLOGY | [address] | | | + + + + + | [facility] | [address] | [place] [address] | | | PATHOLOGY | [address] [...] Performed At | + + + | [id number] Estimated GFR > 60 mL/min/1.73 sq m if non- | [facility] | | Cameroonian [id number] Estimated GFR > 60 mL/min/1.73 sq m if | DEPARTMENT OF | | Cameroonian GFR is estimated using [...] | + + + + + | [facility] | [address] | [place] [address] | | | PATHOLOGY | [address] | | | + + + + + | [facility] DEPARTMENT OF | [address] | [place] [address] | | | PATHOLOGY | [address] [...] OF | [address] | [place] [address] | | | PATHOLOGY | [address] | | | + + + + + | [facility] DEPARTMENT | [address] | [place] [address] | | | PATHOLOGY | [address] [...] view image for the detailed interpretation from In[employer] results. | CARDIOLOGY | | | | + + + + + + + + | Performing | Address | City/State/Zipcode | Phone Number | | Organization | | | | + + + + + | [facility] DEPT OF | [address] | [place], [place] | | | CARDIOLOGY | [facility] | [address] | | + + + + + | [facility] DEPT OF | [address] | [place], [place] | | | CARDIOLOGY | [facility] | [address] | | + + + + + documented in this encounter Visit Diagnoses + + | Diagnosis | + + | Panniculitis Panniculitis, unspecified site | + + | CAD (coronary artery disease) Coronary atherosclerosis of unspecified type of vessel, | | agdaagux or graft | + + | Type II or unspecified type diabetes mellitus with peripheral circulatory disorders, | | uncontrolled(250.72) Type II or unspecified type diabetes mellitus with peripheral | | circulatory disorders, uncontrolled | + + | Other specified pre-operative examination | + + documented in this encounter
--- OUTSIDE RECORDS SUMMARY | ~2019-01-13 | XMS | Encounter Summary ---
Demographics + + + | Address | [address] | | | [place] [address] | + + + | Home Phone [...] IGNAC[place] camacho | | | | | [address] | | + + + + + Care Team Providers + +------+ + | Care Child Custody Evaluator Name | Role | Phone | [...] | Activity | [address] | [address] | | | | | [address] Mailcode: RPB07 | [place], [place] | | | | | [place], [place] | [address] | | | | | [address] | [phone] | | | | | [phone] | | | +--------+ + + + [...]
--- OUTSIDE RECORDS SUMMARY | ~2019-01-13 | XMS | Encounter Summary ---
Demographics + + + | Address | [address] | | | [place] [address] | + + + | Home Phone [...] IGNAC[place] camacho | | | | | [address] | | + + + + + Care Team Providers + +------+ + | Care Facialist Name | Role | Phone | + [...] | | | | | | [address] [place], [place] | | | | | | [address] | | | | | | [phone] | | | +--------+---------+ + + + [...] has been cleared for surgery by her multimedia producer, Dr. Melendez. She states she has completed dietary consultation and psychological evaluation in [facility]. Those records have been requested. Current [...] REFLUX DISEASE) SLEEP APNEA Past Surgical History: DE CABG, VEIN, FOUR HX APPENDECTOMY HX CHOLECYSTECTOMY [...]
--- OUTSIDE RECORDS SUMMARY | ~2019-01-13 | XMS | Encounter Summary ---
Demographics + + + | Address | [address] | | | [place] [address] | + + + | Home Phone [...] [place]NA[place] camacho | | | | | [address] | | + + + + + Care Team Providers + +------+ + | Care Scaling Machine Operator Name | Role | Phone [...] | | | Surgery at [facility] [address] | | | | | | [address] | | | | | | Mailcode: CH5P | | | | | | [facility] | | | | | | and Healing, | | | | | | Building 1 | | | | | | Floor [place], [place] | | | | | | [address] | | | | | | [phone] | | | +--------+ + + + [...]
--- OUTSIDE RECORDS SUMMARY | ~2019-01-13 | XMS | Encounter Summary ---
Demographics + + + | Address | [address] | | | [place] [address] | + + + | Home Phone [...] + + + | Author | [facility] | + + + | Organization | [facility] | + + + [...] [place] camacho | | | | | [address] | | + + + + + Care Team Providers + +------+ + | Care Straight Tooth Gear Generator Operator Name | Role | Phone | [...] Hernia of | Aysha Crow | s [address] | | | | | unspecified | [address] | [address] | | | | | site of | [address] | Mary Becker | | | | | abdominal | [place], [place] | Mailcode: | | | | | cavity | [address] | [address] [facility] | | | | | without | | Hospital | | | | | mention of | | [place], [place] | | | | | obstruction | | [address] | | | | | or gangrene | | Phone: | | | | | Procedures | | [phone] | | | | | CT ABDOMEN | | Fax: | | | | | WWO CONTRAST | | [phone] | | | | | LTD | | | +--------+--------+ + + + + Encounter Details +--------+ + + + + | Date | Type | Department | Care Team | Description | +--------+ + + + + | 08/05/ | Hospital | Radiology/Imaging | | | | 2008 | Encounter | Lab at [facility] [address] | | | | | [address] Mailcode: | | | | | | CH[facility] [facility] | | | | | | Health and Healing, | | | | | | Building 1, [facility] | | | | | | Floor [place], [place] | | | | | | [address] | | | | | | [phone] | | | +--------+ + + + [...]
--- OUTSIDE RECORDS SUMMARY | ~2019-01-13 | XMS | Encounter Summary ---
Demographics + + + | Address | [address] | | | [place] [address] | + + + | Home Phone [...] [place] camacho | | | | | [address] | | + + + + + Care Team Providers + +------+ + | Care Correction Warden Name | Role | Phone | + [...] Visit | Medical at [facility] 16 | FABIO Figueredo [address] | (Primary Dx); | | | | Floor [address] | [address] [place], | Encounter for | | | | Ave Mailcode: CH16D | [place] [address] | Long-Term (Current) | | | | [facility] | [phone] | Use of Other | | | | and Healing, | | Medications | | | | Building | | | | | | Floor [place], [place] | | | | | | [address] | | | | | | [phone] | | | +--------+---------+ + + + [...] in 06/06 --s/p CABG in 2000 in [facility] --s/p cholecystectomy 35 years ago --s/p appy [...] month Julia Buckley PA-C Department of Dermatology [facility] documented in [...]
--- OUTSIDE RECORDS SUMMARY | ~2019-01-13 | XMS | Encounter Summary ---
Demographics + + + | Address | [address] | | | [place] [address] | + + + | Home Phone [...] IGNAC[place] camacho | | | | | [address] | | + + + + + Care Team Providers + +------+ + | Care Senior Architectural Designer Name | Role | Phone | [...] | | | | | Procedures | [address] | ERNESTINA | | | | | CONSULT TO | [facility] | [facility] | | | | | [place] | [place], [place] | CHILDREN | | | | | | [address] | [address] [facility] | | | | | | Phone: | DEACON BYRNE | | | | | | [phone] | [place], | | | | | | Fax: | [place] [address] | | | | | | [phone] | Phone: | | | | | | | [phone] | | | | | | | Fax: | | | | | | | [phone] | +--------+--------+ + + + + Reason [...] | | Surgery at [facility] [address] | [place], [place] | | | | | [address] | [address] | | | | | Mailcode: [facility] | [phone] | | | | | [facility] | | | | | | and Healing, | | | | | | Building 1, | | | | | | Floor [place], [place] | | | | | | [address] | | | | | | [phone] | | | +--------+---------+ + + + [...] with Dr. Vasquez. She has seen a it operations manager without any change in her rash. She [...] known rash that was seen by a it operations manager, per patient. There was no specific treatab [...]
--- OUTSIDE RECORDS SUMMARY | ~2019-01-13 | XMS | Encounter Summary ---
Demographics + + + | Address | [address] [address] | | | [place] [address] | + + + | Home Phone [...] IGNAC[place] camacho | | | | | [address] | | + + + + + Care Team Providers + +------+ + | Care House Rn Name | Role | Phone | [...] | 2008 | Visit | Medical at [facility] 16 | FABIO Figueredo [address] | (Primary Dx); | | | | Floor [address] | [address] [place], | Encounter for | | | | Ave Mailcode: CH16D | [place] [address] | Long-Term (Current) | | | | [facility] | [phone] | Use of Other | | | | and Healing, | | Medications | | | | Building | | | | | | Floor [place], [place] | | | | | | [address] | | | | | | [phone] | | | +--------+---------+ + + + [...] 06/06 --s/p CABG in 2000 in [facility] --s/p cholecystectomy 35 years ago --s/p appy [...] PA-C Department of Dermatology [facility] documented in [...]
--- OUTSIDE RECORDS SUMMARY | ~2019-01-13 | XMS | Encounter Summary ---
Demographics + + + | Address | [address] | | | [place] [address] | + + + | Home Phone [...] IGNAC[place] camacho | | | | | [address] | | + + + + + Care Team Providers + +------+ + | Care Technical Healthcare Consultant Name | Role | Phone | [...] CH4S | | | | | | [facility] | | | | | | and Healing, | | | | | | Building 1, 6th | | | | | | Floor [place], [place] | | | | | | [address] | | | | | | [phone] | | | +--------+---------+ + + + [...] The next will be in 2 m [facility] time. documented in this encounter Plan of Treatment Not on filedocumented as of this encounter Visit Diagnoses + + | Diagnosis | + + | Achalasia Achalasia and cardiospasm | + + | Obesity Obesity, unspecified | + + documented in this encounter
--- OUTSIDE RECORDS SUMMARY | ~2019-01-13 | XMS | Encounter Summary ---
Demographics + + + | Address | [address] | | | [place] [address] | + + + | Home Phone [...] IGNAC[place] camacho | | | | | [address] | | + + + + + Care Team Providers + +------+ + | Care Quality Compliance Manager Name | Role | Phone | [...] | | | | | | Floor [place], [place] | | | | | | [address] | | | | | | [phone] | | | +--------+---------+ + + + [...]
--- OUTSIDE RECORDS SUMMARY | ~2019-01-13 | XMS | Encounter Summary ---
Demographics + + + | Address | [address] [address] | | | [place] [address] | + + + | Home Phone [...] IGNAC[place] camacho | | | | | [address] | | + + + + + Care Team Providers + +------+ + | Care Wood Model Builder Name | Role | Phone | [...] | Eugenio Mailcode: RPB07 | [address] [place], | | | | | [place], [place] | [place] [address] | | | | | [address] | [phone] | | | | | [phone] | | | +--------+ + + + [...]
--- OUTSIDE RECORDS SUMMARY | ~2019-01-13 | XMS | Encounter Summary ---
Demographics + + + | Address | BAD ADDRESS | | | [place] [address] | + + + | Home Phone [...] Author | [facility] | | | and yBronana | + + + | Organization | [facility] | | | and Byronana [...] | | | | | [place] [address] | | + + + + + | Najma Krishnamurthy | ECON | Unknown | | + + + + + | Hector Mack | ECON | [address] | | | | | [place] | | | | | [address] | | + + + + + | Najma Sanches | ECON | Unknown | | + + + + + Care Team Providers + +------+ + | Care Cut Out And Marking Machine Operator Name | Role | Phone | + +------+ + | Tuan Chan MD | PCP | | + +------+ + Encounter Details +--------+ + + + + | Date | Type | Department | Care Team | Description | +--------+ + + + + | 11/02/ | Orders Only | [facility] | Provider, | | | 2019 | | SYSTEM GENERIC OP | MD [address] | | | | | CONVERSION [address] | Nicholas Dimas | | | | | [address] [place], [place] | [place] [address] | | | | | [address] | | | | | | [phone] | | | +--------+ + + + [...]
--- OUTSIDE RECORDS SUMMARY | ~2019-01-13 | XMS | Encounter Summary ---
Demographics + + + | Address | [address] | | | [place] [address] | + + + | Home Phone [...] [place] camacho | | | | | [address] | | + + + + + Care Team Providers + +------+ + | Care Spool Sander Name | Role | Phone | [...] RPB07 | | | | | | [place], [place] | | | | | | [address] | | | | | | [phone] | | | +--------+ + + + [...] DEPARTMENT OF | [address] | [place] [address] | | | PATHOLOGY | [address] | | | + + + + + | [place] DEPARTMENT OF | [address] [facility] | [place] [address] | | | PATHOLOGY | [address] [...] Performed At | + + + | [id number] Estimated GFR > 60 mL/min/1.73 sq m if non- | [facility] | | [id number] Estimated GFR > 60 mL/min/1.73 sq m [...] + | [facility] DEPARTMENT OF | [address] [facility] [address] | [place] [address] | | | PATHOLOGY | [address] | | | + + + + + | [facility] DEPARTMENT OF | [address] [facility] [address] | [place] [address] | | | PATHOLOGY | [address] [...] + + + + | [facility] | [address] | [place] [address] | | | PATHOLOGY | [address] | | | + + + + + | [facility] | [address] | [place] [address] | | | PATHOLOGY | [address] | | | + + + + + documented in this encounter Visit Diagnoses Not on filedocumented in this encounter"
--- OUTSIDE RECORDS SUMMARY | ~2019-01-13 | XMS | Encounter Summary ---
Demographics + + + | Address | [address] | | | [place] [address] | + + + | Home Phone [...] [address] | | | | | [place] | | | | | [address] | | + + + + + Care Team Providers + +------+ + | Care Washer Off Name | Role | Phone | + [...]
--- OUTSIDE RECORDS SUMMARY | ~2019-01-13 | XMS | Encounter Summary ---
Demographics + + + | Address | [address] | | | [place] [address] | + + + | Home Phone [...] [place] camacho | | | | | [address] | | + + + + + Care Team Providers + +------+ + | Care Farmworker Turkey Farm Name | Role | Phone | [...] | | | | CONSULT TO | [place], [place] | Mailcode: | | | | | [place] EXC | [address] | [facility] | | | | | SKIN ABD PA | | for Health | | | | | REDUCTION | | and Healing, | | | | | OF LARGE | | Building 1, | | | | | BREAST | | 5th Floor | | | | | Procedure to | | [place], [place] | | | | | be | | [address] | | | | | performed: | | Phone: | | | | | breast | | [phone] | | | | | reduction | [...] | | | | | | | (117[address]) and | | | | | | | Reduction of | | | | | | | large | | | | | | | breast | | | | | | | ([id number]) | | | +--------+--------+ + + + [...] Dx) | | | | Surgery at [facility] [address] | [place], [place] | | | | | [address] | [address] | | | | | Mailcode: [facility] | [phone] | | | | | [facility] | | | | | | and Healing, | | | | | | Building 1, 5th | | | | | | Floor [place], [place] | | | | | | [address] | | | | | | [phone] | | | +--------+---------+ + + + [...] 18 years ago Occupation: unemployed, lives in [place] Family History Problem Relation Heart Mother Diabetes [...] per side. Plan: --Patient will followup with sleep tech, who will re-evaluate her rash prior to proceedi ng with breast surgery. Requested that derm forward their note to us. --Our corporate scheduler will provide the patient with a [...]
--- OUTSIDE RECORDS SUMMARY | ~2019-01-13 | XMS | Encounter Summary ---
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
--- OUTSIDE RECORDS SUMMARY | ~2019-01-13 | XMS | Encounter Summary ---
Demographics + + + | Address | [address] [place] [address] | | | [place] [address] | + + + | Home Phone [...] [place] camacho | | | | | [address] | | + + + + + Care Team Providers + +------+ + | Care Rackman Name | Role | Phone | + [...] Hernia of | Aysha Crow | s [address] | | | | | unspecified | [address] | [address] | | | | | site of | [address] | Mary Becker | | | | | abdominal | [place], [place] | Mailcode: | | | | | cavity | [address] | [address] [facility] | | | | | without | | Hospital | | | | | mention of | | [place], [place] | | | | | obstruction | | [address] | | | | | or gangrene | | Phone: | | | | | Procedures | | [phone] | | | | | CT ABDOMEN | | Fax: | | | | | WWO CONTRAST | | [phone] | | | | | LTD | | | +--------+--------+ + + + + Encounter Details +--------+ + + + + | Date | Type | Department | Care Team | Description | +--------+ + + + + | 08/05/ | Hospital | Radiology/Imaging | | | | 2008 | Encounter | Lab at [facility] [address] | | | | | | [address] Mailcode: | | | | | | [facility] | | | | | | Health and Healing, | | | | | | Building 1, [facility] | | | | | | Floor [place], [place] | | | | | | [address] | | | | | | [phone] | | | +--------+ + + + [...]
--- OUTSIDE RECORDS SUMMARY | ~2019-01-13 | XMS | Encounter Summary ---
Demographics + + + | Address | [address] | | | [place] [address] | + + + | Home Phone [...] [place] camacho | | | | | [address] | | + + + + + Care Team Providers + +------+ + | Care Airborne Electronics Analyst Name | Role | Phone | [...] | at [facility] | [facility] | | | | | [address] [facility] | [place] [address] | | | | | [facility] | | | | | | Mailcode: OP12B Isaiah | | | | | | [facility] | | | | | | [place], | | | | | | [place] [address] | | | | | | [phone] | | | +--------+ + + + [...] view image for the detailed interpretation from [employer] results. | CARDIOLOGY | + + + + + + + + | Performing | Address | City/State/Zipcode | Phone Number | | Organization | | | | + + + + + | [facility] | [address] | [place], [place] | | | CARDIOLOGY | [facility] | [address] | | + + + + + documented in this encounter Visit Diagnoses Not on filedocumented in this encounter"
--- OUTSIDE RECORDS SUMMARY | ~2019-01-13 | XMS | Encounter Summary ---
Demographics + + + | Address | [address] | | | [place] [address] | + + + | Home Phone [...] [place] camacho | | | | | [address] | | + + + + + Care Team Providers + +------+ + | Care Web Site Manager Name | Role | Phone | [...] | Eugenio Mailcode: RPB07 | Mary Becker [place], | | | | | [place], [place] | [place] [address] | | | | | [address] | [phone] | | | | | [phone] | | | +--------+ + + + [...]
--- OUTSIDE RECORDS SUMMARY | ~2019-01-13 | XMS | Encounter Summary ---
Demographics + + + | Address | [address] | | | [place] [address] | + + + | Home Phone [...] [place] bed[place] | | | | | [address] | | + + + + + Care Team Providers + +------+ + | Care Border Measurer Name | Role | Phone | + [...] | | | | | | | [place], [place] | | | | | | | [address] | | | | | | | Phone: | | | | | | | [phone] | | | | | | | Fax: | | | | | | | [phone] | +--------+--------+ + + + + Encounter Details +--------+ + + + + | Date | Type | Department | Care Team | Description | +--------+ + + + + | 05/10/ | Hospital | [facility] [address] | Aysha Blackburn | | | 2008 - | Encounter | CAMPUS Dr Andre Crow MD | | | | | [address]/[id number] MIMA | | | | 05/11/ | | [place], | | | | 2008 | | [place] [address] | | | +--------+ + + + [...] 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 mason at If you have any of the [...] Aysha Blackburn MD, 1 week, please call [phone] for appointment Follow Up Tests: (Tests at [facility] must be entered into Epic) None Condition [...] Discharged Via: Wheelchair Mode of Transportation: Other: [employer] Accompanied by: Staff Transport Company Name: (when applicable) [employer] Phone #: Discharge Nurse: PASQUALE MEYERS RN [...] week for drain removal Lizz Brittany MS4 [address] [place] [address] Kassandra Herman - 05/01 12:00 AM Emily-Germaine brownlee [id number] [facility] REC NUMBER: [id number] NAME : Germaine Heard DATE : 1945 Admit Date: 05/10/2008 Discharge Date: 05/11/2008 PHYSICIAN'S REQUEST FOR HOME HEALTH SERVICES Relevant History: Location to receive services if other than home: Allergies: Height: Weight: Ordering Physician: [address] [place] [address] Physician to follow for ongoing home health orders: PCP Name: PCP Phone: Discharge Need(s): 1. Transportation Discharge Vendor: Medicaid - [place] Discharge Suggested First Visit/Delivery Date: Discharge Service/Equipment: Medical Technologist: Oralia Wang documented in this encounter Plan [...] + + + + | PRODUCT | [id number] | | [facility] | | | UNIT [...] | + + + + + | [facility] DEPARTMENT | [address] [facility] | [place] [address] | | | PATHOLOGY | [address] | | | + + + + + | [place] DEPARTMENT OF | [address] [facility] | [place] [address] | | | PATHOLOGY | [address] [...] + + + + | PRODUCT | [id number] | | [facility] | | | UNIT [...] + | [facility] | [address] | [place] [address] | | | PATHOLOGY | [address] | | | + + + + + | [facility] | [facility] | [place] [address] | | | PATHOLOGY | [address] | | | + + + + + OPERATION RECORD (05/10/2008 12:00 AM PST) + + + | Narrative | Performed At | + + + | [id number] | | | [id number] | | | [id number] ARETHA RAE [id number] | | | Date: 05/10/2008 Attending Surgeon: | | | Aysha Blackburn MD College Basketball Coach(s): | | | Lang Pisano M.D. Preoperative [...] hemostasis was ensured. We then placed two 19-Gabonese Ruel | | | drains in the [...] | | MD LORIE Arce / PASCUAL [id number] / [id number] / [id number] / D: | | | 05/12/2008 | | + + + + + | Procedure Note | + + | Aysha Blackburn MD - 05/10/2008 12:00 AM [facility] [id number] | | [id number] ARETHA RAE | | [id number] Date: 05/10/2008 Attending Surgeon: | | Aysha Blackburn MD College Basketball Coach(s): Lang Pisano M.D. | | Preoperative Diagnosis(es):Panniculitis. [...] ensured. We then | | placed two 19-Gabonese Ruel drains in the subcutaneous plane. The [...] Crow | | MD LORIE Blackburn / [id number] / [id number] / [id number] / T: 05/12/2008 | | | | [...] w as ensured. We then placed two 19-Gabonese Ruel drains in the subcutaneous plane. The [...] | | | | |JAM / | |[id number] / [id number] / [id number] / | | | | | | [...] + +---------+ +------+--------+---+ | morphine 5 mg/mL INSTRUMENT AND CONTROLS TECHNICIAN infusion | New Bag | 05/10/19 | [...]
--- OUTSIDE RECORDS SUMMARY | ~2019-01-13 | XMS | Encounter Summary ---
Demographics + + + | Address | [address] | | | [place] [address] | + + + | Home Phone [...] [place] camacho | | | | | [address] | | + + + + + Care Team Providers + +------+ + | Care University Archivist Name | Role | Phone | + [...] Dx) | | 2006 | Visit | [place] [address] | | | | | | [place] Mailcode: CH4S | | | | | | [facility] | | | | | | and Healing, | | | | | | Building 1, 6th | | | | | | Floor [place], [place] | | | | | | [address] | | | | | | [phone] | | | +--------+---------+ + + + [...] Performed At | + + + | [id number] Estimated GFR = 60 mL/min/1.73 sq m if non- | [facility] | | [id number] Estimated GFR > 60 mL/min/1.73 sq m [...] [facility] DEPARTMENT OF | [address] | [place] [address] | | | PATHOLOGY | [address] | | | + + + + + | [facility] DEPARTMENT OF | [address] | [place] [address] | | | PATHOLOGY | [address] [...] [facility] | [address] [facility] | [place] [address] | | | PATHOLOGY | [address] | | | + + + + + | [facility] | [address] [facility] | [place] [address] | | | PATHOLOGY | [address] | | | + + + + + documented in this encounter Visit Diagnoses + + | Diagnosis | + + | Obesity - Primary Obesity, unspecified | + + documented in this encounter
--- OUTSIDE RECORDS SUMMARY | ~2019-01-13 | XMS | Encounter Summary ---
Demographics + + + | Address | [address] [place] [address] | | | [place] [address] | + + + | Home Phone [...] [place] camacho | | | | | [address] | | + + + + + Care Team Providers + +------+ + | Care Marketing Finance Manager Name | Role | Phone | [...] | Mary Becker Mailcode: | Mary Becker [place], | | | | | [address] Physician's | [place] [address] | | | | | [address] | [phone] | | | | | [place], [place] | | | | | | [address] | | | | | | [phone] | | | +--------+---------+ + + + [...] cardiac problems. She smoked, has about a 12-fvvm-utkz smoking history but has not smoked in [...]
--- OUTSIDE RECORDS SUMMARY | ~2019-01-13 | XMS | Encounter Summary ---
Demographics + + + | Address | [address] [address] | | | [place] [address] | + + + | Home Phone [...] IGNACIO camacho | | | | | [address] | | + + + + + Care Team Providers + +------+ + | Care Explosives Handler Name | Role | Phone | [...] (Primary Dx) | | 2006 | | [place] [address] MD | | | | | [place] Mailcode: CH4S | | | | | | [facility] | | | | | | and Healing, | | | | | | Building 1, 6th | | | | | | Floor [place], [place] | | | | | | [address] | | | | | | [phone] | | | +--------+ + + + [...] Performed At | + + + | [id number] Estimated GFR = 60 mL/min/1.73 sq m if non- | [facility] | | [id number] Estimated GFR > 60 mL/min/1.73 sq m [...] + | [facility] | [address] | [place] [address] | | | PATHOLOGY | [address] | | | + + + + + | [facility] DEPARTMENT OF | [address] | [place] [address] | | | PATHOLOGY | [address] [...] DEPARTMENT OF | [address] | [place] [address] | | | PATHOLOGY | [address] | | | + + + + + | [facility] | [address] | [place] [address] | | | PATHOLOGY | [address] | | | + + + + + documented in this encounter Visit Diagnoses + + | Diagnosis | + + | Obesity - Primary Obesity, unspecified | + + documented in this encounter"
--- OUTSIDE RECORDS SUMMARY | ~2019-01-13 | XMS | Encounter Summary ---
Demographics + + + | Address | [address] [place] [address] | | | [place] [address] | + + + | Home Phone [...] IGNACIO camacho | | | | | [address] | | + + + + + Care Team Providers + +------+ + | Care Pediatric Cardiologist Name | Role | Phone | + [...] as of this encounter Progress Notes Interface, Nursing Service Director In - 07/27/2005 2:07 AM PDT [id number] 07/25/2005 07/25/2005 [id number] ARETHA RAE [address] [place] [address] or July 25, 2005 Tuan Chan M.D. [address] [place], [place] RE: GERMAINE CARIAS MR #: [id number] Dear Dr. Chan: Your patient Ms. Germaine Carias returned for an office visit at [facility] on , July 25, 2005. [...] this kind referral. Sincerely, Wes Wolff M.D. [facility] / [id number] / [id number] / [phone] / cc: Papi Johnson M.D. [facility] General Surgery documented i n this encounter Plan of Treatment Not on filedocumented as of this encounter Visit Diagnoses Not on filedocumented in this encounter"
--- OUTSIDE RECORDS SUMMARY | ~2019-01-13 | XMS | Encounter Summary ---
Demographics + + + | Address | [address] [place] [address] [facility] [address] | | | [place] [address] | + + + | Home Phone [...] IGNACIO camacho | | | | | [address] | | + + + + + [...] 01/14/ | Office | Preoperative | 1, [facility] Machine Scallop Cutter [address] | Panniculitis; CAD | | 2007 | Visit | Medicine Clinic at | [facility] [address] | (Coronary Artery | | | | [facility] 4th Floor [address] | [place] [address] | Disease); DM Circ | | | | [address] | | Dis Type II, | | | | Mailcode: CH4S | | Uncontrolled (HCC); | | | | [facility] | | Other Specified | | | | and Healing, | | Pre-Operative | | | | Building 1,4th Floor | | Examination | | | | [place], [place] | | | | | | [address] | | | | | | [phone] | | | +--------+---------+ + + + [...] | + + +--------+ + + | [place] COLLECTION VENOUS | Procedures | Routin | [...] | [facility] DEPARTMENT OF | [address] [facility] | [place] [address] | | | PATHOLOGY | [address] | | | + + + + + | [facility] DEPARTMENT OF | [address] [facility] | [place] [address] | | | PATHOLOGY | [address] [...] DEPARTMENT OF | [address] | [place] [address] | | | PATHOLOGY | [address] | | | + + + + + | [facility] DEPARTMENT OF | [address] | [place] [address] | | | PATHOLOGY | [address] [...] DEPARTMENT OF | [address] | [place] [address] | | | PATHOLOGY | [address] | | | + + + + + | [facility] DEPARTMENT OF | [address] | [place] [address] | | | PATHOLOGY | [address] [...] + + + + | [facility] | [address] [facility] | [place] [address] | | | PATHOLOGY | [address] | | | + + + + + | [facility] | [address] [facility] | [place] [address] | | | PATHOLOGY | [address] [...] Performed At | + + + | [id number] Estimated GFR > 60 mL/min/1.73 sq m if non- | [facility] | | Taiwanese [id number] Estimated GFR > 60 mL/min/1.73 sq m if | DEPARTMENT OF | | [place]ese GFR is estimated using the MDRD equation [...] + + + + | [facility] | [address] [facility] | [place] [address] | | | PATHOLOGY | [address] | | | + + + + + | [facility] DEPARTMENT OF | [address] | [place] [address] | | | PATHOLOGY | [address] [...] DEPARTMENT OF | [address] | [place] [address] | | | PATHOLOGY | [address] | | | + + + + + | [facility] DEPARTMENT | [address] | [place] [address] | | | PATHOLOGY | [address] [...] view image for the detailed interpretation from [employer] results. | CARDIOLOGY | | | | + + + + + + + + | Performing | Address | City/State/Zipcode | Phone Number | | Organization | | | | + + + + + | [facility] DEPT OF | [address] | [place], [place] | | | CARDIOLOGY | [facility] | [address] | | + + + + + | [facility] DEPT OF | [address] | [place], [place] | | | CARDIOLOGY | [facility] | [address] | | + + + + + documented in this encounter Visit Diagnoses + + | Diagnosis | + + | Panniculitis Panniculitis, unspecified site | + + | CAD (coronary artery disease) Coronary atherosclerosis of unspecified type of vessel, | | [place] or graft | + + | Type II or unspecified type diabetes mellitus with peripheral circulatory disorders, | | uncontrolled(250.72) Type II or unspecified type diabetes mellitus with peripheral | | circulatory disorders, uncontrolled | + + | Other specified pre-operative examination | + + documented in this encounter
--- OUTSIDE RECORDS SUMMARY | ~2019-01-13 | XMS | Encounter Summary ---
Demographics + + + | Address | [address] [facility] [facility] [address] | | | [place] [address] | + + + | Home Phone [...] IGNACIO camacho | | | | | [address] | | + + + + + Care Team Providers + +------+ + | Care Flat Clothier Name | Role | Phone | + [...] [address] | | | | | | [place], [place] | | | | | | [address] | | | | | | [phone] | | | +--------+------+ + + + [...] + + documented in this encounter Results [facility] - BAS[facility] SET (03/11/2011 5:13 [...] + + + | Test performed by: [facility] | [facility] | | Outpatient Lab CH[address], [place] [address] | DEPARTMENT OF | | | PATHOLOGY | + + + + + + + + | Performing | Address | City/State/Zipcode | Phone Number | | Organization | | | | + + + + + | [facility] | [address] | [place] [address] | | | PATHOLOGY | [address] [...] cmnt | 150 - 420 K/cu | [facility] | | | COUNT, | | mm [...] + + + | Test performed by: [facility] | [place] | | Outpatient Lab [facility] [address] [place], [place] [address] | DEPARTMENT OF | | Sent to Core Lab. | PATHOLOGY | + + + + + + + + | Performing | Address | City/State/Zipcode | Phone Number | | Organization | | | | + + + + + | [facility] | [address] | [place] [address] | | | PATHOLOGY | [address] | | | + + + + + documented in this encounter Visit Diagnoses + + | Diagnosis | + + | Kidney stone Calculus of kidney | + + documented in this encounter"
--- OUTSIDE RECORDS SUMMARY | ~2019-01-13 | XMS | Encounter Summary ---
Demographics + + + | Address | [address] [facility] [address] | | | [place] [address] | + + + | Home Phone [...] IGNAC[place] camacho | | | | | [address] | | + + + + + Care Team Providers + +------+ + | Care Lithographic Proofer Name | Role | Phone | + [...] | | | Surgery at [facility] [address] | | Intertrigo; CAD | | | | [address] | | (Coronary Artery | | | | Mailcode: [facility] | | Disease); DM Circ | | | | [facility] | | Dis Type II, | | | | and Healing, | | Uncontrolled ([facility]) | | | | Building 1, | | | | | | Floor [place], [place] | | | | | | [address] | | | | | | [phone] | | | +--------+---------+ + + + [...] surgeries scheduled to take place on the berwick at the [facility]: Surgeries scheduled in the [facility] ( North): registration is located on the 4th floor of [facility] (Day Surgery). Surgeries scheduled in the [facility]: registration is located on the 9th floor. Surgeries scheduled in [facility]: registration is located on the 6th floor. Surgeries scheduled in the [facility]: registration is located i n the [facility] on the first floor. For surgeries scheduled to take place at the [facility] Health & Healing: registration is [...] Accession | | | | | | #:[id number] CC | | | | | | [...] | | | | | | at [facility] and | | | | | | Science | | | | | | [place].ASSESSMENT: | | | | | | Negative [...] + | [facility] | [facility] | [place] [address] | | | PATHOLOGY | [address] | | | + + + + + | [facility] DEPARTMENT OF | [facility] [address] | [place] [address] | | | PATHOLOGY | [address] [...] + | [facility] DEPARTMENT OF | [address] | [place] [address] | | | PATHOLOGY | [address] | | | + + + + + | [facility] DEPARTMENT OF | [address] | [place] [address] | | | PATHOLOGY | [address] [...] | [facility] DEPARTMENT OF | [address] [facility] | [place] [address] | | | PATHOLOGY | [address] | | | + + + + + | [facility] DEPARTMENT OF | [address] [facility] | [place] [address] | | | PATHOLOGY | [address] [...] Performed At | + + + | [id number] Estimated GFR > 60 mL/min/1.73 sq m if non- | [facility] | | Venezuelan [id number] Estimated GFR > 60 mL/min/1.73 sq m if | DEPARTMENT OF | | [place] GFR is estimated using the MDRD equation [...] + | [facility] | [facility] | [place] [address] | | | PATHOLOGY | [address] | | | + + + + + | [facility] | [address] [facility] | [place] [address] | | | PATHOLOGY | [address] [...] DEPARTMENT OF | [address] | [place] [address] | | | PATHOLOGY | [address] | | | + + + + + | [facility] DEPARTMENT OF | [address] | [place] [address] | | | PATHOLOGY | [address] | | | + + + + + documented in this encounter Visit Diagnoses + + | Diagnosis | + + | Panniculitis - Primary Panniculitis, unspecified site | + + | Intertrigo Other specified erythematous condition | + + | CAD (coronary artery disease) Coronary atherosclerosis of unspecified type of vessel, | | [place] or graft | + + | Type II or unspecified type diabetes mellitus with peripheral circulatory disorders, | | uncontrolled(250.72) Type II or unspecified type diabetes mellitus with peripheral | | circulatory disorders, uncontrolled | + + documented in this encounter
--- OUTSIDE RECORDS SUMMARY | ~2019-01-13 | XMS | Encounter Summary ---
Demographics + + + | Address | [address] [place] [address] [facility] [address] [address] | | | [place] [address] | + + + | Home Phone [...] IGNACIO camacho | | | | | [address] | | + + + + + Care Team Providers + +------+ + | Care Guide Dog Instructor Name | Role | Phone | [...] 2005 | Registratio | [address] | [phone] | | | | n | [address] Mailcode: RPB07 | | | | | | [place], [place] | | | | | | [address] | | | | | | [phone] | | | +--------+ + + + [...]
--- OUTSIDE RECORDS SUMMARY | ~2019-01-13 | XMS | Encounter Summary ---
Demographics + + + | Address | [address] | | | [place] [address] | + + + | Home Phone [...] IGNACIO camacho | | | | | [address] | | + + + + + Care Team Providers + +------+ + | Care Retail Selling Floor Leader Name | Role | Phone | [...]
--- OUTSIDE RECORDS SUMMARY | ~2019-01-13 | XMS | Encounter Summary ---
Demographics + + + | Address | [address] | | | [place] [address] | + + + | Home Phone [...] IGNACIO camacho | | | | | [address] | | + + + + + Care Team Providers + +------+ + | Care Metal Work Duct Installer Name | Role | Phone | [...] Dx) | | 2006 | Visit | [address] | | | | | | [place] Mailcode: CH4S | | | | | | [facility] | | | | | | and Healing, | | | | | | Building 1, 6th | | | | | | Floor [place], [place] | | | | | | [address] | | | | | | [phone] | | | +--------+---------+ + + + [...] Performed At | + + + | [id number] Estimated GFR = 60 mL/min/1.73 sq m if non- | [facility] | | [id number] Estimated GFR > 60 mL/min/1.73 sq m [...] + + + + + | [facility] DEPARTMENT OF | [address] | [place] [address] | | | PATHOLOGY | [address] | | | + + + + + | [facility] DEPARTMENT OF | [address] | [place] [address] | | | PATHOLOGY | [address] [...] | + + + + + | [facility] | [address] [facility] | [place] [address] | | | PATHOLOGY | [address] | | | + + + + + | [facility] | [address] [facility] | [place] [address] | | | PATHOLOGY | [address] | | | + + + + + documented in this encounter Visit Diagnoses + + | Diagnosis | + + | Obesity - Primary Obesity, unspecified | + + documented in this encounter
--- OUTSIDE RECORDS SUMMARY | ~2019-01-13 | XMS | Encounter Summary ---
Demographics + + + | Address | [address] [place] [address] [address] | | | [place] [address] | + + + | Home Phone [...] IGNACIO camacho | | | | | [address] | | + + + + + Care Team Providers + +------+ + | Care Trip Rider Name | Role | Phone | + [...] | | | | Mailcode: CH10U | [place], [place] | | | | | [facility] | [address] | | | | | and Healing, | [phone] | | | | | | | | | | | Floor [place], [place] | | | | | | [address] | | | | | | [phone] | | | +--------+ + + + [...]
--- OUTSIDE RECORDS SUMMARY | ~2019-01-13 | XMS | Encounter Summary ---
Demographics + + + | Address | [address] | | | [place] [address] | + + + | Home Phone [...] IGNACIO camacho | | | | | [address] | | + + + + + Care Team Providers + +------+ + | Care House Fellow Name | Role | Phone | + [...] [address]B07 | | | | | | [place], [place] | | | | | | [address] | | | | | | [phone] | | | +--------+ + + + [...] + + + + + | [facility] DEPARTMENT OF | [address] | [place] [address] | | | PATHOLOGY | [address] | | | + + + + + | [facility] DEPARTMENT OF | [address] [facility] | [place] [address] | | | PATHOLOGY | [address] [...] + + | [facility] | [address] [place] [address] | [place] [address] | | | PATHOLOGY | [address] | | | + + + + + | [facility] DEPARTMENT | [address] [place] [address] | [place] [address] | | | PATHOLOGY | [address] [...] + + + + + | [facility] DEPARTMENT OF | [address] | [place] [address] | | | PATHOLOGY | [address] | | | + + + + + | [facility] DEPARTMENT OF | [address] | [place] [address] | | | PATHOLOGY | [address] [...] DEPARTMENT OF | [address] | [place] [address] | | | PATHOLOGY | [address] | | | + + + + + | [facility] DEPARTMENT | [address] | [place] [address] | | | PATHOLOGY | [address] | | | + + + + + PHOSPHORUS, PLASMA (02/08/2006 6:43 AM PST) + +-------+ + + + | Component | Value | Ref Range | Performed | Pathologist | | | | | At | Signature | + +-------+ + + + | PHOSPHORUS, | 2.8 | 2.4 - 4.7 mg/dL | [facility] | | | PLASMA | [...] + + + + + | [facility] DEPARTMENT OF | [address] [facility] | [place] [address] | | | PATHOLOGY | [address] | | | + + + + + | [facility] DEPARTMENT OF | [address] [facility] | [place] [address] | | | PATHOLOGY | [address] [...] + | [facility] DEPARTMENT OF | [address] | [place] [address] | | | PATHOLOGY | [address] | | | + + + + + | [facility] DEPARTMENT OF | [address] | [place] [address] | | | PATHOLOGY | [address] [...] + + + + + | [facility] DEPARTMENT OF | [address] | [place] [address] | | | PATHOLOGY | [address] | | | + + + + + | [facility] DEPARTMENT OF | [address] | [place] [address] | | | PATHOLOGY | [address] [...] + | [facility] | [address] [facility] | [place] [address] | | | PATHOLOGY | [address] | | | + + + + + | [facility] | [address] [facility] | [place] [address] | | | PATHOLOGY | [address] | | | + + + + + PHOSPHORUS, PLASMA (02/08/2006 4:30 AM PST) + +-------+ + + + | Component | Value | Ref Range | Performed | Pathologist | | | | | At | Signature | + +-------+ + + + | PHOSPHORUS, | 2.7 | 2.4 - 4.7 mg/dL | [facility] | | | PLASMA | [...] + + + + + | [facility] DEPARTMENT OF | [address] | [place] [address] | | | PATHOLOGY | [address] | | | + + + + + | [facility] DEPARTMENT OF | [address] | [place] [address] | | | PATHOLOGY | [address] [...] + | [facility] | [address] [facility] | [place] [address] | | | PATHOLOGY | [address] | | | + + + + + | [facility] | [address] [facility] | [place] [address] | | | PATHOLOGY | [address] [...] + | [facility] | [address] [facility] | [place] [address] | | | PATHOLOGY | [address] | | | + + + + + | [facility] | [address] [place] [address] | [place] [address] | | | PATHOLOGY | [address] [...] + + + + + | [facility] DEPARTMENT OF | [address] | [place] [address] | | | PATHOLOGY | [address] | | | + + + + + | [facility] DEPARTMENT OF | [address] | [place] [address] | | | PATHOLOGY | [address] [...] + | [facility] | [address] | [place] [address] | | | PATHOLOGY | [address] | | | + + + + + | [facility] | [address] [place] [address] [address] | [place] [address] | | | PATHOLOGY | [address] [...] + | [facility] | [address] [facility] | [place] [address] | | | PATHOLOGY | [address] | | | + + + + + | [facility] | [address] [facility] | [place] [address] | | | PATHOLOGY | [address] [...] DEPARTMENT OF | [address] | [place] [address] | | | PATHOLOGY | [address] | | | + + + + + | [facility] DEPARTMENT | [address] | [place] [address] | | | PATHOLOGY | [address] [...] + + + + + | [facility] DEPARTMENT OF | [address] | [place] [address] | | | PATHOLOGY | [address] | | | + + + + + | [facility] DEPARTMENT OF | [address] | [place] [address] | | | PATHOLOGY | [address] [...] + | [facility] | [address] [facility] | [place] [address] | | | PATHOLOGY | [address] | | | + + + + + | [facility] | [address] [facility] | [place] [address] | | | PATHOLOGY | [address] | | | + + + + + MAGNESIUM, PLASMA (02/07/2006 4:30 AM PST) + +-------+ + + + | Component | Value | Ref Range | Performed | Pathologist | | | | | At | Signature | + +-------+ + + + | MAGNESIUM,P | 1.9 | 1.8 - 2.5 mg/dL | [facility] | | | LASMA | [...] + + + + + | [facility] DEPARTMENT OF | [address] | [place] [address] | | | PATHOLOGY | [address] | | | + + + + + | [facility] DEPARTMENT OF | [address] | [place] [address] | | | PATHOLOGY | [address] [...] DEPARTMENT OF | [address] | [place] [address] | | | PATHOLOGY | [address] | | | + + + + + | [facility] DEPARTMENT OF | [address] | [place] [address] | | | PATHOLOGY | [address] [...] + + + + + | [facility] DEPARTMENT OF | [address] | [place] [address] | | | PATHOLOGY | [address] | | | + + + + + | [facility] DEPARTMENT OF | [address] | [place] [address] | | | PATHOLOGY | [address] [...] No. | | | | | | [phone], medical | | | | | | record [phone], ICD-9 | | | | | | [...] + + | Performing | Address | City[facility]State[facility] | Phone Number | | Organization | [...] + + + + + | [facility] DEPARTMENT OF | [address] | [place] [address] | | | PATHOLOGY | [address] | | | + + + + + | [facility] OF | [address] | [place] [address] | | | PATHOLOGY | [address] [...] DEPARTMENT OF | [address] | [place] [address] | | | PATHOLOGY | [address] | | | + + + + + | [facility] DEPARTMENT OF | [address] | [place] [address] | | | PATHOLOGY | [address] [...] DEPARTMENT OF | [address] | [place] [address] | | | PATHOLOGY | [address] | | | + + + + + | [facility] DEPARTMENT | [address] | [place] [address] | | | PATHOLOGY | [address] [...] + | [facility] | [address] | [place] [address] | | | PATHOLOGY | [address] | | | + + + + + | [facility] | [facility] [address] | [place] [address] | | | PATHOLOGY | [address] [...] + + | [facility] | [address] [place] [address] | [place] [address] | | | PATHOLOGY | [address] | | | + + + + + | [facility] DEPARTMENT | [address] [place] [address] | [place] [address] | | | PATHOLOGY | [address] [...] + + + + + | [facility] DEPARTMENT OF | [address] [facility] | [place] [address] | | | PATHOLOGY | [address] | | | + + + + + | [facility] DEPARTMENT OF | [address] [facility] | [place] [address] | | | PATHOLOGY | [address] [...] + + + + + | [facility] DEPARTMENT | [address] | [place] [address] | | | PATHOLOGY | [address] | | | + + + + + | [facility] OF | [facility] [address] | [place] [address] | | | PATHOLOGY | [address] [...] OF | [address] | [place] [address] | | | PATHOLOGY | [address] | | | + + + + + | [facility] DEPARTMENT OF | [address] | [place] [address] | | | PATHOLOGY | [address] [...] + + + + + | [facility] DEPARTMENT OF | [address] | [place] [address] | | | PATHOLOGY | [address] | | | + + + + + | [facility] DEPARTMENT OF | [address] | [place] [address] | | | PATHOLOGY | [address] [...] by | | | | | | [facility] | | | | | | [facility] coComment. | | | | + + + + + + + + | Specimen | + + | | + + + + + + + | Performing | Address | City/State/Zipcode | Phone Number | | Organization | | | | + + + + + | [facility] | [address] | [place] [address] | | | LABORATORY | | | | + + + + + documented in this encounter Visit Diagnoses Not on filedocumented in this encounter"
--- OUTSIDE RECORDS SUMMARY | ~2019-01-13 | XMS | Encounter Summary ---
Demographics + + + | Address | [address] | | | [place] [address] | + + + | Home Phone [...] [place] | | | | | [address] | | + + + + + Care Team Providers + +------+ + | Care Network Intern Name | Role | Phone | [...] | | | | | Procedures | [facility] | [facility] | | | | | Consult | 2010 | for Health | | | | | | AR[place] ARIZMEND[place], | and Healing, | | | | | | [place] [address] | Building 1, | | | | | | Phone: | 16th Floor | | | | | | [phone] | [place], [place] | | | | | | Fax: | [address] | | | | | | [phone] | Phone: | | | | | | | [phone] | | | | | | | Fax: | | | | | | | [phone] | +--------+--------+ + + + + Encounter Details +--------+---------+ + + + | Date | Type | Department | Care Team | Description | +--------+---------+ + + + | 08/05/ | Office | Dermatology | Khoa Manuel, | Rash and Other | | 2008 | Visit | Medical at [facility] | ,PhD Castro | Nonspecific Skin | | | | Floor [address] | Allergy Asthma | Eruption (Primary | | | | Ave Mailcode: 16D | Dermatology [address] | Dx) | | | | [facility] | [facility] | | | | | and Healing, | [place] [address] | | | | | [facility] | [phone] | | | | | Floor [place], [place] | | | | | | [address] | | | | | | [phone] | | | +--------+---------+ + + + [...] plan of care. Khoa Manuel MD, PhD Global Implementation Manager, Department of Dermatology [facility] 08/05/2008 Genoveva Galeano Md - 08/05/2008 [...] skin culture done by Dr. Chan in [facility] prior to her gastric by pass [...] the day. She has never seen a wheel truing machine tender. The patient's dermatology intake form was reviewed, signed, and dated. Her relevant PMH, F H, and SH includes: PAST MEDICAL HISTORY: --Gastric bypass in 02/[address] Johnson, used to weigh 450 pounds --s/p abdominoplasty in 06/06 --s/p CABG in 2000 in [facility] --s/p cholecystectomy 35 years ago --s/p appy [...] Natalie Olsen M.D. Resident, Department of Dermatology [facility] and [facility] [place] documented in th is encounter Plan of Treatment + + +--------+ + + | Name | Type | Priori | Associated Diagnoses | Order Schedule | | | | ty | | | + + +--------+ + + | DE BIOPSY OF SKIN | Procedures | Routin [...]
--- OUTSIDE RECORDS SUMMARY | ~2019-01-13 | XMS | Encounter Summary ---
Demographics + + + | Address | [address] | | | [place] [address] | + + + | Home Phone [...] [place] | | | | | [address] | | + + + + + Care Team Providers + +------+ + | Care Diamond Blender Name | Role | Phone | + +------+ + | Tuan Chan MD | PCP | | + +------+ + Encounter Details +--------+ + + + + | Date | Type | Department | Care Team | Description | +--------+ + + + + | 06/25/ | Ancillary | Registration [id number] | Wes Wolff MD | | | 2005 | Registratio | [facility] | [address] | | | | [address] | [address] Mailcode: RPB07 | [place], [place] | | | | | [place], [place] | [address] | | | | | [address] | [phone] | | | | | [phone] | | | +--------+ + + + [...] [facility] DEPARTMENT | [address] | [place] [address] | | | PATHOLOGY | [address] | | | + + + + + | [facility] DEPARTMENT | [address] | [place] [address] | | | PATHOLOGY | [address] | | | + + + + + PROTHROMBIN TIME (06/25/2005 9:45 AM PST) + + + + + + | Component | Value | Ref Range | Performed | Pathologist | | | | | At | Signature | + + + + + + | INR | 0.90Comment: | 0.90 - 1.20 INR | [facility] | | | | PT INR [...] + | [facility] | [address] | [place] [address] | | | PATHOLOGY | [address] | | | + + + + + | [facility] | [address] | [place] [address] | | | PATHOLOGY | [address] [...] Performed At | + + + | [id number] Estimated GFR > 60 mL/min/1.73 sq m if non- | [facility] | | [id number] Estimated GFR > 60 mL/min/1.73 sq m [...] + + | [facility] | [facility] | [place] [address] | | | PATHOLOGY | [address] | | | + + + + + | [facility] | [address] | [place] [address] | | | PATHOLOGY | [address] | | | + + + + + documented in this encounter Visit Diagnoses Not on filedocumented in this encounter"
--- OUTSIDE RECORDS SUMMARY | ~2019-01-13 | XMS | Encounter Summary ---
Demographics + + + | Address | [address] | | [...] [place] | | | | | [address] | | + + + + + Care Team Providers + +------+ + | Care Marketing Copywriter Name | Role | Phone | + [...] | Dyslipidemia; | | | | Mailcode: NWQ564 | | Dysmetabolic | | | | [facility] | | Syndrome X; Sleep | | | | [address], | | Apnea; Gout; DM Circ | | | | [place] [address] | | Dis Type II, | | | | [phone] | | Uncontrolled (HCC) | +--------+ + [...] + | [facility] | [address] [facility] | [place] [address] | | | PATHOLOGY | [address] | | | + + + + + | [facility] | [facility] | [place] [address] | | | PATHOLOGY | [address] | | | + + + + + documented in this encounter Visit Diagnoses + + | Diagnosis | + + | CAD (coronary artery disease) Coronary atherosclerosis of unspecified type of vessel, | | tetlin or graft | + + | Dyslipidemia [...]
--- OUTSIDE RECORDS SUMMARY | ~2019-01-13 | XMS | Encounter Summary ---
Demographics + + + | Address | BAD ADDRESS | | | [place] [address] | + + + | Home Phone [...] Author | [facility] | | | and Byronana | + + + | Organization | [facility] | | [...] | | | | | [place] [address] | | + + + + + | Najma Krishnamurthy | ECON | Unknown | | + + + + + | Hector Mack | ECON | [address] | | | | | [place] | | | | | [address] | | + + + + + | Najma Sanches | ECON | Unknown | | + + + + + Care Team Providers + +------+ + | Care Rn Paralegal Name | Role | Phone | + +------+ + | Tuan Chan MD | PCP | | + +------+ + Encounter Details +--------+ + + + + | Date | Type | Department | Care Team | Description | +--------+ + + + + | 11/02/ | Orders Only | [facility] | Provider, | | | 2019 | | SYSTEM GENERIC OP | [address] | | | | | CONVERSION [address] | [place] | | | | | [address] [place], [place] | [place] [address] | | | | | [address] | | | | | | [phone] | | | +--------+ + + + [...]
--- OUTSIDE RECORDS SUMMARY | ~2019-01-13 | XMS | Encounter Summary ---
Demographics + + + | Address | [address] | | | [place] [address] | + + + | Home Phone [...] [place] | | | | | [address] | | + + + + + Care Team Providers + +------+ + | Care Leach Runner Name | Role | Phone | [...] Procedures | [facility] | [facility] | | | | | Consult | 2010 | for Health | | | | | | [place], | and Healing, | | | | | | [place] [address] | Building 1, | | | | | | Phone: | 16th Floor | | | | | | [phone] | [place], [place] | | | | | | Fax: | [address] | | | | | | [phone] | Phone: | | | | | | | [phone] | | | | | | | Fax: | | | | | | | [phone] | +--------+--------+ + + + + Encounter Details +--------+---------+ + + + | Date | Type | Department | Care Team | Description | +--------+---------+ + + + | 08/05/ | Office | Dermatology | Khoa Manuel, | Rash and Other | | 2008 | Visit | Medical at [facility] | ,PhD Castro | Nonspecific Skin | | | | Floor [address] | Allergy Asthma | Eruption (Primary | | | | Ave Mailcode: 16D | Dermatology [address] | Dx) | | | | [facility] | [facility] | | | | | and Healing, | [place] [address] | | | | | [facility] | [phone] | | | | | Floor [place], [place] | | | | | | [address] | | | | | | [phone] | | | +--------+---------+ + + + [...] plan of care. Khoa Manuel MD, PhD Assembly Inspector, Department of Dermatology [facility] 08/05/2008 Genoveva Galeano Md - 08/05/2008 [...] skin culture done by Dr. Chan in [facility] prior to her gastric by pass [...] the day. She has never seen a launch operator. The patient's dermatology intake form was reviewed, signed, and dated. Her relevant PMH, F H, and SH includes: PAST MEDICAL HISTORY: --Gastric bypass in 02/[address] Johnson, used to weigh 450 pounds --s/p abdominoplasty in 06/06 --s/p CABG in 2000 in [facility] --s/p cholecystectomy 35 years ago --s/p appy [...] M.D. Resident, Department of Dermatology [facility] and [facility] [place] documented in th is encounter Plan of Treatment + + +--------+ + + | Name | Type | Priori | Associated Diagnoses | Order Schedule | | | | ty | | | + + +--------+ + + | WA BIOPSY OF SKIN | Procedures | Routin [...]
--- OUTSIDE RECORDS SUMMARY | ~2019-01-13 | XMS | Encounter Summary ---
Demographics + + + | Address | [address] [place] [address] | | | [place] [address] | + + + | Home Phone [...] [place] | | | | | [address] | | + + + + + Care Team Providers + +------+ + | Care Floor Winder Name | Role | Phone | + [...] | | | obstructing | [facility] | [address] | | | | | calculus at | [address] | Ave | | | | | the right | [facility] | [place], [place] | | | | | [place]. | [address] | [address] | | | | | | [address] | Phone: | | | | | | [place], | [phone] | | | | | | [place] [address] | Fax: | | | | | | Phone: | [phone] | | | | | | [phone] | | | | | | | Fax: | | | | | | | [phone] | | +--------+--------+ + + + + [...] | | | | Mailcode: CH10U | [place], [place] | specified | | | | [facility] | [address] | pre-operative | | | | and Healing, | [phone] | examination | | | | | | | | | | Floor [place], [place] | | | | | | [address] | | | | | | [phone] | | | +--------+---------+ + + + [...] surgeries scheduled to take place on the [facility] at [facility] [place]: Surgeries scheduled in the [facility] (4 North): registration is located on the 4th floor of [facility] (Day Surgery). Surgeries scheduled in the [facility]: registration is located on the 9th floor. Surgeries scheduled in [facility]: registration is located on the 6th floor. Surgeries scheduled in the [facility]: registration is located i n the [facility] on the first floor. For surgeries scheduled to take place at the [facility]: registration is l [...] If you use specialized medical equipment at [facility], please check with your provider before bringing [...] female referred by Dr. Deirdre Anne for [facility] percutaneous ultrasonic lithotripsy Subjective: previous right [...] infarction in 2001 followed by CABG in [place]. She has been maintained of Plavx since then but stopped it over a week ago. She has no cardiac symptoms especially since w eight loss from 550 to 190 after gastric bypass in 2005. Pannus removed more recently by Dr. Gia Amin at [facility]. 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 Social History Main Topics Smoking status: Former [...] + + documented in this encounter Results [facility] - BASIC METABOLIC SET (03/11/2011 [...] + + + | Test performed by: [facility] | [facility] | | Outpatient Lab CH[address] [place], [place] [address] | DEPARTMENT OF | | | PATHOLOGY | + + + + + + + + | Performing | Address | City/State/Zipcode | Phone Number | | Organization | | | | + + + + + | [facility] DEPARTMENT OF | [address] | [place] [address] | | | PATHOLOGY | [address] [...] + + + | Test performed by: [facility] and [facility] | [facility] | | Outpatient Lab [facility] [address] [place], [place] [address] | DEPARTMENT OF | | Sent to Core Lab. | PATHOLOGY | + + + + + + + + | Performing | Address | City/State/Zipcode | Phone Number | | Organization | | | | + + + + + | [facility] DEPARTMENT | [address] | [place] [address] | | | PATHOLOGY | [address] | | | + + + + + 12 LEAD ECG (03/11/2011 4:58 PM PST) + + + + + + | Component | Value | Ref Range | Performed | Pathologist | | | | | At | Signature | + + + + + + | VENTRICULAR | 62 | BPM | [facility] DEPT | | | RATE [...] view image for the detailed interpretation from [employer] results. | CARDIOLOGY | + + + + + + + + | Performing | Address | City/State/Zipcode | Phone Number | | Organization | | | | + + + + + | [facility] DEPT OF | [address] | [place], [place] | | | CARDIOLOGY | [address] | [address] | | + + + + + [...] | | | | | | RLB ([facility]) | | | | | | [place] | | | | | | [facility] | | | | | | [address] [place] [facility] | | | | | | [place], [place] | | | | | | [address] | | | | + + + + + + + + | Specimen | + + | Urine - Voided | + + + + + + + | Performing | Address | City/State/Zipcode | Phone Number | | Organization | | | | + + + + + | [facility] | [address] | [place] [address] | | | LAB-MICRO | | | [...] + | [facility] | [address] | [place] [address] | | | OF CARE TESTS | | | | + + + + + documented in this encounter Visit Diagnoses + + | Diagnosis | + + | Kidney stone - Primary Calculus of kidney | + + | Other specified pre-operative examination | + + documented in this encounter
--- OUTSIDE RECORDS SUMMARY | ~2019-01-13 | XMS | Encounter Summary ---
Demographics + + + | Address | [address] | | | [place] [address] | + + + | Home Phone [...] [place] | | | | | [address] | | + + + + + Care Team Providers + +------+ + | Care Mental Health Aides Teacher Name | Role | Phone [...] | Eugenio Mailcode: RPB07 | [address] [place], | | | | | [place], [place] | [place] [address] | | | | | [address] | [phone] | | | | | [phone] | | | +--------+ + + + [...]
--- OUTSIDE RECORDS SUMMARY | ~2019-01-13 | XMS | Encounter Summary ---
Demographics + + + | Address | [address] [place] [address] | | | [place] [address] | + + + | Home Phone [...] [place] | | | | | [address] | | + + + + + Care Team Providers + +------+ + | Care Pulp And Paper Tester Name | Role | Phone | [...] | | | | | | | [place], [place] | | | | | | | [address] | | | | | | | Phone: | | | | | | | [phone] | | | | | | | Fax: | | | | | | | [phone] | +--------+--------+ + + + + Encounter Details +--------+---------+ + + + | Date | Type | Department | Care Team | Description | +--------+---------+ + + + | 05/09/ | Office | Plastic and | Resident, Pls | Panniculitis | | 2008 | Visit | Reconstructive | [address] | (Primary Dx) | | | | Surgery at [facility] [address] | [place] [address] | | | | | [address] | | | | | | Mailcode: CH5P | | | | | | [facility] | | | | | | and Healing, | | | | | | Building | | | | | | Floor [place], [place] | | | | | | [address] | | | | | | [phone] | | | +--------+---------+ + + + [...] 1 Years of Education: N/A 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
--- OUTSIDE RECORDS SUMMARY | ~2019-01-13 | XMS | Encounter Summary ---
Demographics + + + | Address | [address] | | | [place] [address] | + + + | Home Phone [...] [place] | | | | | [address] | | + + + + + Care Team Providers + +------+ + | Care Brazer Crawler Torch Name | Role | Phone | + [...] as of this encounter Discharge Summaries Interface, Telecom Field Technician In - 02/20/2006 2:34 AM [facility] [id number] ARETHA RAE [id number] Admission Date: 02/05/2006 Discharge Date: 02/09/2006 Staff [...] of discharge, she was seen by our correctional counselor/case manager who assisted her with a voucher for a motel. She will stay in the local area for the next 2 days before returning home to [place]. The patient was seen by Nutrition and [...] Sana Timmons M.D. Chey Escobar M.D. / [id number] / [id number] / [id number] / [id number] E: 02/11/2006 cmw cc: Tuan Chan M.D. FAX: [phone] Reviewed or Edited By Sana Timmons on 02-19-2006 Electronically signed by Herberth Brambila 02-19-2006 11:24:08 AM documented i n this encounter Plan of Treatment Not on filedocumented as of this encounter Visit Diagnoses Not on filedocumented in this encounter"
--- OUTSIDE RECORDS SUMMARY | ~2019-01-13 | XMS | Clinical Summary ---
Demographics + + + | Address | [address] | | | [place] [address] | + + + | Home Phone [...] [place] | | | | | [address] | | + + + + + Care Team Providers + +------+ + | Care Risk Tech Name | Role | Phone | + +------+ + | Tuan Chan MD | PCP | | + +------+ + Source Comments [facility] is fully live on both [facility] and [facility] Allergies + + + + [...] | | | | | | | [address] | | + +--------+ +--------+ + +--------+ | MEDICAID [place] | OHP | xxxxxxxx | 07/01/19 | [phone] | [address] | Medica | | | PLUS | | 10-Pre | 6 | [address] | id | | | OPEN | | sent | | [place] | | | | CARD | | | | [address] | | + +--------+ +--------+ + +--------+ [...] demetrius | | | 4 (Home) | [address] | + +--------+ +--------+ + + Advance Directives + + + + + | Type | Date Recorded | Patient | Explanation | | | | Fortune Teller | | + + + + + | Advance | | | | | Directives and | | | | | Living Will | | | | + + + + + | Power of | | | | | Film Processing Shift Supervisor | | | | + + + [...]
--- OUTSIDE RECORDS SUMMARY | ~2019-01-13 | XMS | Encounter Summary ---
Demographics + + + | Address | [address] | | | [place] [address] | + + + | Home Phone [...] [place] | | | | | [address] | | + + + + + Care Team Providers + +------+ + | Care Fish Rod Maker Name | Role | Phone | [...] Colon | | | | | at [facility] | [facility] | | | | | [address] | [place] [address] | | | | | [facility] | | | | | | Mailcode: OP12B Isaiah | | | | | | [facility] | | | | | | [place], | | | | | | [place] [address] | | | | | | [phone] | | | +--------+ + + + [...] view image for the detailed interpretation from [employer] results. | CARDIOLOGY | + + + + + + + + | Performing | Address | City/State/Zipcode | Phone Number | | Organization | | | | + + + + + | [facility] DEPT OF | [address] | [place], [place] | | | CARDIOLOGY | [facility] | [address] | | + + + + + documented in this encounter Visit Diagnoses Not on filedocumented in this encounter"
--- OUTSIDE RECORDS SUMMARY | ~2019-01-13 | XMS | Encounter Summary ---
Demographics + + + | Address | [address] | | | [place] [address] | + + + | Home Phone [...] [place] | | | | | [address] | | + + + + + Care Team Providers + +------+ + | Care Cinder Crusher Operator Name | Role | Phone | [...] 09/07/ | Office | Preoperative | 1, [facility] Client Support Manager [address] | CAD (Coronary Artery | | 2008 | Visit | Medicine Clinic at | [facility] [address] | Disease); Gout; DM | | | | [facility] 4th Floor [address] | [place] [address] | Circ Dis Type II, | | | | [address] | | Uncontrolled (HCC); | | | | Mailcode: CH4S | | Obesity; Achalasia; | | | | [facility] | | Panniculitis; | | | | and Healing, | | Bruise; Other | | | | Building 1,4th Floor | | Specified | | | | [place], [place] | | Pre-Operative | | | | [address] | | Examination | | | | [phone] | | | +--------+---------+ + + + [...] | + + +--------+ + + | [facility] COLLECTION VENOUS | Procedures | Routin | [...] | | | | | ([facility]) Obesity | | | | | [...] + + + + + | [facility] DEPARTMENT OF | [address] | [place] [address] | | | PATHOLOGY | [address] | | | + + + + + | [facility] DE[facility] OF | [address] | [place] [address] | | | PATHOLOGY | [address] [...] | + + + + + | [facility] | [address] | [place] [address] | | | PATHOLOGY | [address] | | | + + + + + | [facility] | [address] | [place] [address] | | | PATHOLOGY | [address] [...] + + + + + | [facility] DEPARTMENT OF | [address] | [place] [address] | | | PATHOLOGY | [address] | | | + + + + + | [facility] DEPARTMENT | [address] | [place] [address] | | | PATHOLOGY | [address] [...] Performed At | + + + | [id number] Estimated GFR > 60 mL/min/1.73 sq m if non- | [facility] | | [place] 847362 Estimated GFR > 60 mL/min/1.73 sq m [...] + + + + + | [facility] DEPARTMENT OF | [address] | [place] [address] | | | PATHOLOGY | [address] | | | + + + + + | [facility] DEPARTMENT OF | [address] | [place] [address] | | | PATHOLOGY | [address] [...] | | | | | SHAKIRA GARCIA (9260) | | | | | | on [...] + + + | Please click | [facility] DE[facility] OF | | on view image for the detailed interpretation from [employer] results. | CARDIOLOGY | | | | + + + + + + + + | Performing | Address | City/State/Zipcode | Phone Number | | Organization | | | | + + + + + | [facility] DEPT OF | [address] | [place], [place] | | | CARDIOLOGY | [address] | [address] | | + + + + + | [facility] DEPT OF | [address] | [place], [place] | | | CARDIOLOGY | [address] | [address] | | + + + + + documented in this encounter Visit Diagnoses + + | Diagnosis | + + | CAD (coronary artery disease) Coronary atherosclerosis of unspecified type of vessel, | | [place] or graft | + + | Gout [...]
--- OUTSIDE RECORDS SUMMARY | ~2019-01-13 | XMS | Clinical Summary ---
Demographics + + + | Address | [address] | | | [place] [address] | + + + | Home Phone [...] + | Author | [facility] (Historical as of | | | 11-14-18) | + + + | Organization | [facility] (Historical as of | | | 11-14-18) [...] [place] | | | | | [address] | | + + + + + | Najma Sanches | ECON | Unknown | | + + + + + Care Team Providers + +------+ + | Care Glove Stitcher Name | Role | Phone | + [...] | 04/27/2014 | + + + | DC (myocardial infarction) | 09/05/2012 | + + [...] +------+-------+ + | MEDICARE | MEDICA | [id number] | | | [address] | | | RE | | | | [place] [address] | | | IP-OP | | | | | + +--------+ +------+-------+ + | MEDICAID | [facility] | [id number] | | | [address] | | | N | | | | [place] | | | [place] | | | | [address] | | | PHARMACY TECHNICIAN PER DIEM | | | | | + +--------+ [...] | 1946 | [phone] [place] [address] | | | demetrius | | | [address] | | + +--------+ +--------+ + +
--- OUTSIDE RECORDS SUMMARY | ~2019-01-13 | XMS | Encounter Summary ---
Demographics + + + | Address | [address] | | | [place] [address] | + + + | Home Phone [...] [place] | | | | | [address] | | + + + + + Care Team Providers + +------+ + | Care Filter Operator Name | Role | Phone | [...] | Activity | [address] | [address] | | | | | [address] Mailcode: RPB07 | [place], [place] | | | | | [place], [place] | [address] | | | | | [address] | [phone] | | | | | [phone] | | | +--------+ + + + [...]
--- OUTSIDE RECORDS SUMMARY | ~2019-01-13 | XMS | Encounter Summary ---
Demographics + + + | Address | [address] | | | [place] [address] | + + + | Home Phone [...] [place] | | | | | [address] | | + + + + + Care Team Providers + +------+ + | Care Dramatic Teacher Name | Role | Phone | [...] | | | | | Surgery at [facility] [address] | | | | | | [address] | | | | | | Mailcode: [facility] | | | | | | [facility] | | | | | | and Healing, | | | | | | Building [address], [address]th | | | | | | Floor [place], [place] | | | | | | [address] | | | | | | [phone] | | | +--------+---------+ + + + [...]
== END 2019-01-13 22:23 | disposition home or self-care (01) ==
LOC: ED 15:39
PROC: 0T9B70Z Drainage of Bladder with Drainage Device, Via Natural or Artificial Opening (ICD-10-PCS; principal; 2019-01-13)
DX: R10.9 Unspecified abdominal pain (principal); F17.200 Nicotine dependence, unspecified, uncomplicated; Z95.5 Presence of coronary angioplasty implant and graft; Z88.5 Allergy status to narcotic agent; Z79.02 Long term (current) use of antithrombotics/antiplatelets; Z79.899 Other long term (current) drug therapy
CPT/HCPCS: 51701; 74177; 80053; 81001; 83690; 85025; 87077; 87088; 87186; 99284-25; J0696; J1170; J2405; J7030; Q9967

== ENCOUNTER 2019-03-03 16:27 | Emergency (ER) | payer MEDICARE, OTHER ==
[~2019-03-03] VITALS: Ht 154.9 cm; Wt 57.6 kg
--- OUTSIDE RECORDS SUMMARY | ~2019-03-03 | XMS | Encounter Summary ---
Demographics + + + | Address | BAD ADDRESS | | | [place] [address] | + + + | Home Phone | | + + + | Preferred Language | Unknown | + + + | Marital Status | | + + + | Faith Affiliation | 1077 | + + + | Race | Unknown | + + + | Ethnic Group | Unknown | + + + Author + + + | Author | [facility] | | | and [place] | + + + | Organization | [facility] | | | and [place] | + + + | Address | Unknown | + + + | Phone | Unavailable | + + + Support + + + + + | Name | Relationship | Address | Phone | + + + + + | Hector Mack | ECON | [address] | | | | | [place] [address] | | + + + + + | Najma Krishnamurthy | ECON | Unknown | | + + + + + | Hector Mack | ECON | [address] | | | | | [place] | | | | | [address] | | + + + + + | Najma Sanches | ECON | Unknown | | + + + + + Care Team Providers + +------+ + | Care Professor Of Religion Name | Role | Phone | + +------+ + PCP | Unavailable | + +------+ + Encounter Details +--------+ + + + + | Date | Type | Department | Care Team | Description | +--------+ + + + + | 08/01/ | Hospital | [facility] | Rina Diaz MD | CHEST PAIN NEC | | 2003 - | Encounter | [facility] | [address] | | | | | INTENSIVE CARE UNIT | [place] [address] | | | 08/02/ | | [address] | [phone] | | | 2003 | | [place], [place] | | | | | | [address] | | | | | | [phone] | | | +--------+ + + + + Social History + +-------+ +--------+------+ | Tobacco Use | Types | Packs/Day | Years | Date | | | | | Used | | + +-------+ +--------+------+ | Never Assessed | | | | | + +-------+ +--------+------+ + + + | Sex Assigned at | Date Recorded | | | | + + + | Not on file | | + + + + + + + | Job Start Date | Occupation | Industry | + + + + | Not on file | Not on file | Not on file | + + + + + + + + | Travel History | Travel Start | Travel End | + + + + + + | No recent travel history available. | + + documented as of this encounter Plan of Treatment Not on filedocumented as of this encounter Visit Diagnoses + + | Diagnosis | + + | Other chest pain | + + documented in this encounter"
--- OUTSIDE RECORDS SUMMARY | ~2019-03-03 | XMS | Encounter Summary ---
Demographics + + + | Address | BAD ADDRESS | | | [place] [address] | + + + | Home Phone | | + + + | Preferred Language | Unknown | + + + | Marital Status | | + + + | Catholic Affiliation | 1077 | + + + | Race | Unknown | + + + | Ethnic Group | Unknown | + + + Author + + + | Author | [facility] | | | and [place] | + + + | Organization | [facility] | | | and [place] | + + + | Address | Unknown | + + + | Phone | Unavailable | + + + Support + + + + + | Name | Relationship | Address | Phone | + + + + + | Hector Mack | ECON | [address] | | | | | [place] [address] | | + + + + + | Najma Krishnamurthy | ECON | Unknown | | + + + + + | Hector Mack | ECON | [address] | | | | | [place] | | | | | [address] | | + + + + + | Najma Sanches | ECON | Unknown | | + + + + + Care Team Providers + +------+ + | Care Business Process Representative Name | Role | Phone | + +------+ + PCP | Unavailable | + +------+ + Encounter Details +--------+ + + + + | Date | Type | Department | Care Team | Description | +--------+ + + + + | 02/18/ | Hospital | [facility] | | | | 2005 | Encounter | [facility] | | | | | | CENTER [address] | | | | | | [place], [place] | | | | | | [address] | | | | | | [phone] | | | +--------+ + + + [...]
--- OUTSIDE RECORDS SUMMARY | ~2019-03-03 | XMS | Encounter Summary ---
Demographics + + + | Address | BAD ADDRESS | | | [place] [address] | + + + | Home Phone | | + + + | Preferred Language | Unknown | + + + | Marital Status | | + + + | Judaism Affiliation | 1077 | + + + | Race | Unknown | + + + | Ethnic Group | Unknown | + + + Author + + + | Author | [facility] | | | and [place] | + + + | Organization | [facility] | | | and [place] | + + + | Address | Unknown | + + + | Phone | Unavailable | + + + Support + + + + + | Name | Relationship | Address | Phone | + + + + + | Hector Mack | ECON | [address] | | | | | [place] [address] | | + + + + + | Najma Krishnamurthy | ECON | Unknown | | + + + + + | Hector Mack | ECON | [address] | | | | | [place] | | | | | [address] | | + + + + + | Najma Sanches | ECON | Unknown | | + + + + + Care Team Providers + +------+ + | Care Fire Alarm Operator Name | Role | Phone | + +------+ + PCP | Unavailable | + +------+ + Encounter Details +--------+ + + + + | Date | Type | Department | Care Team | Description | +--------+ + + + + | 11/12/ | Hospital | [facility] | Lalo Londono MD | | | 2004 | Encounter | MED CTR GENERIC OP | [address] | | | | | CONV DEPT [address] | [address] | | | | | [place], | [address] | | | | | [place] [address] | | | | | | [phone] | | | +--------+ + + + [...]
--- OUTSIDE RECORDS SUMMARY | ~2019-03-03 | XMS | Encounter Summary ---
Demographics + + + | Address | [address] | | | [place] [address] | + + + | Home Phone | | + + + | Preferred Language | Unknown | + + + | Marital Status | | + + + | Restoration Affiliation | PRO | + + + | Race | White | + + + | Ethnic Group | Not or | + + + Author + + + | Author | [facility] | + + + | Organization | [facility] | + + + | Address | Unknown | + + + | Phone | Unavailable | + + + Support + + + + + | Name | Relationship | Address | Phone | + + + + + | Hector Mack | ECON | [address] | | | | | [place] | | | | | [address] | | + + + + + Care Team Providers + +------+ + | Care Communications Field Technician Name | Role | Phone | + +------+ + | Tuan Chan MD | PCP | | + +------+ + Reason for Referral Consult to [place] (Routine) +--------+--------+ + + + + | Status | Reason | Specialty | Diagnoses / | Referred By | Referred To | | | | | Procedures | Contact | Contact | +--------+--------+ + + + + | Closed | | Plastic | Diagnoses | Alexey, | Pls | | | | Surgery | Hernia of | Aysha Crow, | Cosmetic [facility] | | | | | unspecified | [address] | [address] | | | | | site of | [address] | [address] | | | | | abdominal | [facility] [place] | Mailcode: | | | | | cavity | [address] | [facility] | | | | | without | | for Health | | | | | mention of | | and Healing, | | | | | obstruction | | Building [address], | | | | | or gangrene | | 5th Floor | | | | | | | [place], [place] | | | | | Panniculitis | | [address] | | | | | Procedures | | Phone: | | | | | REQUEST TO | | [phone] | | | | | SURGERY | | | | | | | ULTRASONOGRAPHER | | | +--------+--------+ + + + + Diagnostic Testing (Routine) +--------+--------+ + + + + | Status | Reason | Specialty | Diagnoses / | Referred By | Referred To | | | | | Procedures | Contact | Contact | +--------+--------+ + + + + | Closed | | Radiology | Diagnoses | Blackburn, | Rad Ct Scan | | | | | Hernia of | Aysha Crow, | [facility] [address] | | | | | unspecified | [address] | [address] | | | | | site of | [address] | | | | | abdominal | [place], [place] | Mailcode: | | | | | cavity | [address] | [address] [facility] | | | | | without | | Hospital | | | | | mention of | | [place], [place] | | | | | obstruction | | [address] | | | | | or gangrene | | Phone: | | | | | Procedures | | [phone] | | | | | CT ABDOMEN | | Fax: | | | | | WWO CONTRAST | | [phone] | | | | | LTD | | | +--------+--------+ + + + + Reason for Visit + + + | Reason | Comments | + + + | Follow-up encounter | op:05/10/08 panniculectomy | + + + Encounter Details +--------+---------+ + + + | Date | Type | Department | Care Team | Description | +--------+---------+ + + + | 08/05/ | Office | Plastic and | Aysha Blackburn | Hernia (Primary Dx); | | 2008 | Visit | Reconstructive | MD Tristin | Panniculitis | | | | Surgery at [facility] [address] | | | | | | [address] | | | | | | Mailcode: [address] | | | | | | [facility] | | | | | | and Healing, | | | | | | Building [address], 5th | | | | | | Floor [place], [place] | | | | | | [address] | | | | | | [phone] | | | +--------+---------+ + + + [...] + + documented as of this encounter Progress Notes Aysha Blackburn MD - 08/10/2008 9:21 AM PDTI saw and examined the patient and agree wi th the assessment and plan as documented in the resident's note. Ms. Mack is doing very w ell. We will get a CT of her abdomen to assess for hernia. We could perform the repair at th e time of her mons reduction for significant rashes underneath the mons pannus. We will nee d authorization for this and will be contacting the patient after authorization is obtained Lang Mckeon M D - 08/05/2008 10:26 AM PDTSubjective: Germaine Heard is a 62 y.o. female s/p Paniculectomy (05/10/08). Incisions have heled well. Still has some irritation at the lower abdominal fold but much i mproved since surgery. Has a large mons pubis panniculus, which is causing skin fold infecti ons, rash and irritation. Also has an epigastric hernia, which is reducible. Objective: Comfortable and in no apparent distress. C: epigatric abdominal hernia, 3x3 cm fascial defect with xiphoid forming superior border, reducible Right upper quadrant william incision well healed Lower abdominal incision healing well, rash in the lower abdominal skin fold Large mons panniculus, groin skin fold moist and irritated with maculopapular rash Assessment: s/p Paniculectomy Large mons pubis panniculus causing intertriginous rash and infections Epigastric abdominal hernia Plan: 1) Would benefit from mons reduction, as her groin folds have a severe rash from local irri tation of the skin folds. Pictures taken today. Will submit paperwork to insurance. 2) Will obtain CT abdomen to evaluate the epigastric hernia. Will get this today. 3) will see our in clinic for preopElectronically signed by Lang Pisano MD at 9 11:54 AM PDTdocumented in this encounter Plan of Treatment Not on filedocumented as of this encounter Procedures + +--------+ + + + | Procedure Name | Priori | Date/Time | Associated Diagnosis | Comments | | | ty | | | | + +--------+ + + + | CT ABDOMEN AND | Routin | 08/05/2008 | | Results for this | | PELVIS W IV CONTRAST | e | 12:25 PM | | procedure are in the | | | | PDT | | results section. | + +--------+ + + + documented in this encounter Results CT ABDOMEN & PELVIS W CONTRAST (08/05/2008 12:25 PM PDT) + + + + + + | Component | Value | Ref Range | Performed | Pathologist | | | | | At | Signature | + + + + + + | CT ABDOMEN | CT ABDOMEN/PELVIS WITH | | | | | & PELVIS W | CONTRAST, | | | | | CONTRAST | 08/05/08:HISTORY: | | | | | | Evaluate for hernia or | | | | | | other | | | | | | pathologyCOMPARISON: CT | | | | | | renal stone protocol | | | | | | 03/07/07TECHNIQUE: CT | | | | | | scan of the abdomen and | | | | | | pelvis was performed | | | | | | from thelung bases | | | | | | through the pubic | | | | | | symphysis with oral and | | | | | | intravenous (100mL | | | | | | Visipaque) | | | | | | contrast.FINDINGS:Abdome | | | | | | n:There is bilateral | | | | | | atelectasis. Lung | | | | | | bases are otherwise | | | | | | clear.The residual | | | | | | changes from gastric | | | | | | bypass are noted. The | | | | | | liver,spleen, adrenals, | | | | | | left kidney and pancreas | | | | | | are unremarkable. | | | | | | Asplenule is noted | | | | | | adjacent to the | | | | | | descending colon. The | | | | | | gallbladderis not | | | | | | visualized, and may be | | | | | | collapsed or surgically | | | | | | absent.Multiple small | | | | | | calcifications are noted | | | | | | within the right | | | | | | renalcalices. There is | | | | | | mild to moderate | | | | | | dilatation of the | | | | | | proximal rightrenal | | | | | | pelvis, which is | | | | | | improved from previous | | | | | | study. However, | | | | | | theright ureter is | | | | | | normal in | | | | | | caliber.Pelvis:The | | | | | | bladder is collapsed. | | | | | | The uterus is | | | | | | unremarkable in | | | | | | appearance.The right | | | | | | ovary not identified. | | | | | | A 1.4 cm calcification | | | | | | in the pelvisis | | | | | | difficult to | | | | | | definitively localize, | | | | | | but likely represents | | | | | | anenterolith.There is | | | | | | anterior abdominal wall | | | | | | stranding. A 4.0 x 1.1 | | | | | | x 12.9 cm(cc by AP by | | | | | | TR) rim enhancing fluid | | | | | | collection is seen in | | | | | | theanterior abdominal | | | | | | wall. There is no | | | | | | internal gas to confirm | | | | | | abscess. No ventral | | | | | | abdominal hernia is | | | | | | seen, however there is a | | | | | | smallright-sided | | | | | | paramidline hernia | | | | | | adjacent to the liver | | | | | | tip, with a 2.0cm | | | | | | opening, containing | | | | | | mesenteric fat. These | | | | | | findings were | | | | | | discussedwith Dr. Blackburn | | | | | | at time of dictation.No | | | | | | suspicious osseous | | | | | | abnormality is | | | | | | seen.IMPRESSION:1. No | | | | | | ventral hernia is seen. | | | | | | There is a small right | | | | | | paramidlinehernia noted | | | | | | containing omental | | | | | | fat.2. Small anterior | | | | | | abdominal wall fluid | | | | | | collection. This | | | | | | couldrepresent a small | | | | | | hematoma or seroma, as | | | | | | the patient has had a | | | | | | recentpanniculectomy, | | | | | | but an abscess cannot be | | | | | | excluded on CT. | | | | | | Clinicalcorrelation is | | | | | | suggested.I have | | | | | | personally viewed this | | | | | | procedure/exam and | | | | | | reviewed this | | | | | | report.Author: YOSEPH | | | | | | Chey HINESReviewer: | | | | | | YOSEPH HINES M.D.STATUS | | | | | | FINAL / Dr. YOSEPH HINES | | | | + + + + + + + + | Specimen | + + | | + + + +---------+ + + | Performing | Address | City/State/Zipcode | Phone Number | | Organization | | | | + +---------+ + + | [facility] | | | | | RADIOLOGY | | | | + +---------+ + + documented in this encounter Visit Diagnoses + + | Diagnosis | + + | Hernia of unspecified site of abdominal cavity without mention of obstruction or | | gangrene - Primary | + + | Panniculitis Panniculitis, unspecified site | + + documented in this encounter"
--- OUTSIDE RECORDS SUMMARY | ~2019-03-03 | XMS | Encounter Summary ---
Demographics + + + | Address | [address] | | | [place] [address] | + + + | Home Phone | | + + + | Preferred Language | Unknown | + + + | Marital Status | | + + + | Episcopalian Affiliation | PRO | + + + | Race | White | + + + | Ethnic Group | Not or | + + + Author + + + | Organization | Unknown | + + + | Address | Unknown | + + + | Phone | Unavailable | + + + Support + + + + + | Name | Relationship | Address | Phone | + + + + + | Hector Mack | ECON | [address] | | | | [place] | | | | | [address] | | + + + + + Care Team Providers + +------+ + | Care Errand Runner Name | Role | Phone | + +------+ + | Tuan Chan MD | PCP | | + +------+ + Encounter Details +--------+ + + + + | Date | Type | Department | Care Team | Description | +--------+ + + + + | 02/04/ | Office | | Report, Outpatient | Progress Note | | 2005 | Visit-Trans | | Consultation | | | | cribed | | | | +--------+ + + [...] documented as of this encounter Progress Notes Interface, [place] Layer In - 02/15/2006 2:34 AM [facility] [id number] ANTONIETTAKRZYSZTOF RAE [id number] Referred From and Faxed To: Tim Paula Referred To: Caitlyn Chery R.D., L.D. Consulting Physician: Caitlyn Chery R.D., L.D. Consultation Date: 02/04/2006 Referring Physician: Tim Montano Clinic Name: [facility]PAT[facility] Referring Physician: Papi Johnson M.D. Reason For Requested Consultation: The patient is referred by Scarlett Rodriguez, nurse practitioner, [facility], for diet consult prior to having gastric bypass surgery and also is going to be having a hernia repair. Documented Time of Visit: 3:00 until 4:01. Length of Visit: Sixty-one minutes of [id number] consult with the patient and her friend Lulu. Subjective: This patient is referred by Dr. Papi Johnson and is going to be seen at Surgery tomorrow February 05, 2006. I am not sure what the preparatory plan was prior to surgery, but I am seeing her today prior to surgery tomorrow. Objective: A 60-year-old female. Please see complete history and physical done by both Papi Johnson and [facility]. The patient does have diabetes. Assessment: This is initial assessment for medical nutrition therapy and really post-diet instruction prior to having her hiatal hernia repair and gastric bypass on February 05, 2006. The patient signed self-pay form because Medicare does not pay for this visit. Nutrition Diagnosis: 1. Obesity. The patient does have diabetes, but we did not focus on diabetes education other than to promote consistent carbohydrate and protein meals post surgery 5 to 6 times a day to optimize glucose control. 2. Continue to test blood sugars. 3. Informed the patient to work with Chey on any changes in diabetes medications, report any hypoglycemia to the physician. I skipped presurgery diet information because she is having surgery tomorrow. Post Surgery Diet: 1. Provided, visual, verbal, and written information on all aspects of gastric bypass surgery. 2. Discussed lifelong behavior changes, proper diet selection, and the importance of exercise. 3. Strongly encouraged the patient to follow up with myself, dietitian post-surgery. She is from [place]. This visit can be scheduled when she has a followup appointment with her surgeon here at [facility] Patient's Comprehension: This visit was incredibly important, and I think the patient realizes this. She has a wonderful support person in her friend Lulu who is very knowledgeable about nutrition and diet and this will be a great help for her. Expected Outcome: I think the patient will do moderately well as long as she commits to lifestyle changes presented today. Plan: The patient's goal is to have the hernia repair and also lose weight. 1. Thoroughly read the materials provided. 2. Exercise after surgery when she gets the approval by [employer]. I recommended the Sit and Be Fit program. 3. Definitely followup with R.D. as needed post surgery. This visit can be scheduled on the return 3-month or 6-month visit with her surgeon. 4. R.D.s business card was provided to both the patient and her friend Lulu. Caitlyn Chery R.D., L.D. / [id number] / [id number] / [id number] / cc: Chey Milan A.NSonyPSony Electronically signed by Caitlyn Chery 02-14-2006 01:37:50 PM documented i n this encounter Plan of Treatment Not on filedocumented as of this encounter Visit Diagnoses Not on filedocumented in this encounter"
--- OUTSIDE RECORDS SUMMARY | ~2019-03-03 | XMS | Encounter Summary ---
Demographics + + + | Address | [address] | | | [place] [address] | + + + | Home Phone | | + + + | Preferred Language | Unknown | + + + | Marital Status | | + + + | Yarsani Affiliation | PRO | + + + | Race | White | + + + | Ethnic Group | Not or | + + + Author + + + | Author | [facility] | + + + | Organization | [facility] | + + + | Address | Unknown | + + + | Phone | Unavailable | + + + Support + + + + + | Name | Relationship | Address | Phone | + + + + + | Hector Mack | ECON | [address] | | | | | [place] | | | | | [address] | | + + + + + Care Team Providers + +------+ + | Care Tank Officer Name | Role | Phone | + +------+ + | Tuan Chan MD | PCP | | + +------+ + Reason for Visit + + + | Reason | Comments | + + + | Examination Of Skin | skin check | + + + Encounter Details +--------+---------+ + + + | Date | Type | Department | Care Team | Description | +--------+---------+ + + + | 09/07/ | Office | Dermatology | Julia Buckley | 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 [facility] [address] | [place] [address] | (Primary Dx) | | | | Floor [address] [place], | | | | | Ave Mailcode: CH16D | [place] [address] | | | | | [facility] | [phone] | | | | | and Healing, | | | | | | Building | | | | | | Floor [place], [place] | | | | | | [address] | | | | | | [phone] | | | +--------+---------+ + + + [...] this encounter Last Filed Vital Signs + +---------+ + + | Vital Sign | Reading | Time Taken | Comments | + +---------+ + + | Blood Pressure | 110/80 | 09/07/2008 2:41 PM | | | | | PDT | | + +---------+ + + | Pulse | 68 | 09/07/2008 2:41 PM | | | | | PDT | | + +---------+ + + | Temperature | - | - | | + +---------+ + + | Respiratory Rate | 14 | 09/07/2008 2:41 PM | | | | | PDT | | + +---------+ + + | Oxygen Saturation | - | - | | + +---------+ + + | Inhaled Oxygen | - | - | | | Concentration | | | | + +---------+ + + | Weight | - | - | | + +---------+ + + | Height | - | - | | + +---------+ + + | Body Mass Index | - | - | | + +---------+ + + documented in this encounter Progress Notes Julia Buckley PA - 09/07/2008 4:21 PM PDTS: Germaine Heard is a 62 y.o. female here to follow up on her rash. 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 She has been using the TAC BID and [place] soaks daily an d this has been helpful for the itching, but has not made the rash go away. She also notes that she recently has lost about 250 pounds due to a recent gastric bypass surgery. She has had some of her abdominal skin removed, but notes that her and her plastic surgeon would li ke to remove more on her lower abdomen. She is wondering if she has the excess skin removed if it will possibly help with her skin disease in the groin. She states she would like to be aggressive with her treatment, but is hesitant of more oral medication. Recalls that her nails have been brittle and often break off at the ends. PMHx: --Gastric bypass in 02/[address] Johnson, used to weigh 450 pounds --s/p abdominoplasty in 06/06 --s/p CABG in 2000 in [facility] --s/p cholecystectomy 35 years ago --s/p appy and tonsillectomy ROS: No further skin complaints. O: Vitals as noted above. Bonner skin type II. Well-developed, well-nourished female in no acute distress. Awake, alert and oriented. Pl easant and cooperative mood. A skin examination was performed including the scalp, face, eyelids, ears, lips, neck, ches t, and abdomen. Findings were within normal limits except for the following: --cannot assess fingernails as acrylic nails are in place --flat topped skin-colored papules on dorsal hands, lateral fingers, and dorsal fingers --multiple small erythematous to violaceous flat topped papules coalesceing into plaques in groin, submammary folds A/P: 1. Darier's Disease -- Tazorac 0.05% cream given to be applied to affected areas. Start with thin layer 3x/wk and work up to Qhs as tolerated. Hold with severe irritation. Use with Cerave cream either before or after to help minimize irritation -- TAC 2x/wk as needed for itching or if she experiences severe irritation with the Tazorac -- Discussed Acitretin benefits, risks, and side effects. Pt to consider if topical treatm ent ineffective -- it is likely that having her excess abdominal skin removed would help with her disease a s sweating, heat and occlusion are exacerbating factors. The lesions of Darier's disease ar e prone to secondary infection with bacteria, yeast or dermatophytes which excess skin can p romote as well. RETURN VISIT: 6 weeks Julia Buckley PA-C Department of Dermatology [facility] documented in this encounter Plan of Treatment Not on filedocumented as of this encounter Visit Diagnoses + + | Diagnosis | + + | 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
--- OUTSIDE RECORDS SUMMARY | ~2019-03-03 | XMS | Clinical Summary ---
Demographics + + + | Address | BAD ADDRESS | | | [place] [address] | + + + | Home Phone | | + + + | Preferred Language | Unknown | + + + | Marital Status | | + + + | Religion Affiliation | 1077 | + + + | Race | Unknown | + + + | Ethnic Group | Unknown | + + + Author + + + | Author | [facility] | | | and [place] | + + + | Organization | [facility] | | | and [place] | + + + | Address | Unknown | + + + | Phone | Unavailable | + + + Support + + + + + | Name | Relationship | Address | Phone | + + + + + | Hector Mack | ECON | [address] | | | | | [place] [address] | | + + + + + | Najma Krishnamurthy | ECON | Unknown | | + + + + + | Hector Mack | ECON | [address] | | | | | [place] | | | | | [address] | | + + + + + | Najma Sanches | ECON | Unknown | | + + + + + Care Team Providers + +------+ + | Care Electronics Mechanic Name | Role | Phone | + +------+ + | Tuan Chan MD | PCP | | + +------+ + Allergies No Known Allergies Medications + + + +---------+------+------+-------+ | Medication | Sig | Dispensed | Refills | Star | End | Statu | | | | | | t | Date | s | | | | | | Date | | | + + + +---------+------+------+-------+ | acetaminophen | Take 2 tablets by | 120 | 0 | 02/2 | | Activ | | (TYLENOL) 325 mg | mouth every 4 hours | tablet | | 2/20 | | e | | tablet | as needed for Pain | | | 19 | | | | | (or fever >= 38.6 C | | | | | | | | (101.5 F)). | | | | | | + + + +---------+------+------+-------+ | aspirin 81 mg | Take 1 tablet by | 30 | 0 | 02/2 | | Activ | | chewable tablet | mouth Daily. | tablet | | 2/20 | | e | | | | | | 19 | | | + + + +---------+------+------+-------+ | atorvaSTATin | Take 1 tablet by | 30 | 0 | 02/2 | | Activ | | (LIPITOR) 40 mg | mouth nightly. | tablet | | 2/20 | | e | | tablet | | | | 19 | | | + + + +---------+------+------+-------+ | ferrous sulfate | Take 1 tablet by | 30 | 0 | 02/2 | | Activ | | 325 mg tablet | mouth daily (with | tablet | | 2/20 | | e | | | breakfast). | | | 19 | | | + + + +---------+------+------+-------+ | nicotine | Place 1 patch onto | 21 | 0 | 02/2 | | Activ | | (NICODERM) 14 mg/24 | the skin Daily. | patch | | 2/20 | | e | | hr | | | | 19 | | | + + + +---------+------+------+-------+ | nystatin | Wash and dry under | 60 g | 0 | 02/2 | | Activ | | (MYCOSTATIN) powder | both breasts, apply | | | 2/20 | | e | | | nystatin powder | | | 19 | | | | | under both breasts | | | | | | + + + +---------+------+------+-------+ | clopidogrel | Take 1 tablet by | 30 | 0 | 02/2 | | Activ | | (PLAVIX) 75 mg | mouth Daily. | tablet | | 2/20 | | e | | tablet | | | | 19 | | | + + + +---------+------+------+-------+ | lisinopril | Take 1 tablet by | 30 | 0 | 02/2 | | Activ | | (PRINIVIL, ZESTRIL) | mouth Daily. | tablet | | 2/20 | | e | | 20 mg tablet | | | | 19 | | | + + + +---------+------+------+-------+ | potassium chloride | Take 1 tablet by | 90 | 0 | 02/2 | | Activ | | (KLOR-CON) 10 MEQ | mouth Daily. | tablet | | 2/20 | | e | | ER tablet | | | | 19 | | | + + + +---------+------+------+-------+ | metoprolol | Take 0.5 tablets by | 60 | 0 | 02/2 | | Activ | | tartrate (LOPRESSOR) | mouth 2 times daily. | tablet | | 2/20 | | e | | 25 mg tablet | | | | 19 | | | + + + +---------+------+------+-------+ | albuterol 90 | Inhale 2 puffs into | | 0 | 05/3 | 05/2 | Activ | | mcg/puff inhaler | the lungs every 4 | | | 0/20 | 9/20 | e | | | (four) hours as | | | 19 | 20 | | | | needed for Wheezing | | | | | | | | or Shortness of | | | | | | | | Breath. | | | | | | + + + +---------+------+------+-------+ | calcium carbonate | Take 1 tablet by | | 0 | 05/3 | 05/2 | Activ | | (TUMS) 500 mg | mouth daily. | | | 0/20 | 9/20 | e | | chewable tablet | | | | 19 | 20 | | + + + +---------+------+------+-------+ | furosemide (LASIX) | Take 1 tablet by | | 0 | 05/3 | 05/2 | Activ | | 20 mg tablet | mouth every other | | | 0/20 | 9/20 | e | | | day as needed | | | 19 | 20 | | | | (Bilateral lower | | | | | | | | extremity edema). | | | | | | + + + +---------+------+------+-------+ | levETIRAcetam | Take 1 tablet by | | 0 | 05/3 | 05/2 | Activ | | (KEPPRA) 750 MG | mouth 2 (two) times | | | 0/20 | 9/20 | e | | tablet | daily. | | | 19 | 20 | | + + + +---------+------+------+-------+ | metoprolol | Take 1 tablet by | | 0 | 05/3 | | Activ | | succinate | mouth daily. | | | 020 | | e | | (TOPROL-XL) 25 mg 24 | | | | 19 | | | | hr tablet | | | | | | | + + + +---------+------+------+-------+ | senna (SENNA) 8.6 | Take 1 tablet by | | 0 | 05/3 | /2 | Activ | | mg tablet | mouth daily as | | | 0/20 | 12/18 | e | | | needed for | | | 19 | 20 | | | | Constipation. | | | | | | + + + +---------+------+------+-------+ Active Problems + + + | Problem | Noted Date | + + + | Alcohol abuse, in remission | 11/02/2018 | + + + + + | Overview: Overview: | | sober since 1989 | + + + + + | CAD (coronary artery disease) of bypass graft | 11/02/2018 | + + + + + | Overview: Overview: | | occluded SVG > RCA | + + + + + | Hydronephrosis of right kidney | 11/02/2018 | + + + | Morbid obesity | 11/02/2018 | + + + + + | Overview: Overview: | | weighed over 500 lbs prior to bariatric surgery, lost > 300 lbs | + + + + + | Recurrent nephrolithiasis | 11/02/2018 | + + + | S/P CABG x 4 | 11/02/2018 | + + + + + | Overview: Overview: occluded SVG>RCA; patent CASAS>LAD, patent | | "Y" seq SVG>D1>OM2 (cath 09/10) | + + + + + | S/P PTCA (percutaneous transluminal coronary angioplasty) | 11/02/2018 | + + + + + | Overview: Overview: 3.5x16, 2.75x32 Taxus TRAVIS mid-distal LCx | | (07/16/03) // 2.5x12 Promus Element TRAVIS R PDA, 3.5x15 Promus | | Element TRAVIS distal RCA (09/05/12) | + + + + + | Cerebrovascular accident | 11/02/2018 | + + + + + | Overview: Overview: Right-sided, left facial droop - | | resolved; mild residual memory deficit | + + + + + | Paroxysmal atrial fibrillation | 08/27/2018 | + + + | Poor short term memory | 08/27/2018 | + + + | Hyperlipidemia | 08/21/2018 | + + + | New onset seizure | 08/21/2018 | + + + | Receptive aphasia | 05/20/2018 | + + + | Cognitive impairment | 05/20/2018 | + + + | Right hand weakness | 05/18/2018 | + + + | Infarction of left basal ganglia | 05/18/2018 | + + + | Coronary artery disease involving coronary bypass graft with | 06/12/2015 | | unstable angina pectoris | | + + + | Stented coronary artery | 06/12/2015 | + + + | H/O gastric bypass | 06/12/2015 | + + + | Chronic pain syndrome | 06/12/2015 | + + + | Anemia | 06/12/2015 | + + + | GERD (gastroesophageal reflux disease) | 06/12/2015 | + + + | Hypokalemia | 06/12/2015 | + + + | Non-cardiac chest pain | 06/11/2015 | + + + | Abnormal EKG | 04/27/2014 | + + + | CO (myocardial infarction) | 09/05/2012 | + + + + + | Overview: Overview: | | NSTEMI | + + + + + | Coronary atherosclerosis | 09/04/2012 | + + + | HTN (hypertension) | 09/04/2012 | + + + | NSTEMI (non-ST elevated myocardial infarction) | 09/04/2012 | + + + Family History + + +------+ + | Medical History | Relation | Name | Comments | + + +------+ + | Stroke | Daughter | | | + + +------+ + | COPD | Father | | | + + +------+ + | Coronary artery | Mother | | | | disease | | | | + + +------+ + | Diabetes, NIDDM | Mother | | | + + +------+ + | Heart attack | Mother | | | + + +------+ + | High cholesterol | Mother | | | + + +------+ + | Hypertension | Mother | | | + + +------+ + + +------+ + + | Relation | Name | Status | Comments | + +------+ + + | Brother | | Alive | | + +------+ + + | Daughter | | Alive | | + +------+ + + | Daughter | | | | + +------+ + + | Father | | Other | unknown | + +------+ + + | Father | | | | + +------+ + + | Mother | | | heart failure | | | | (Age | | | | | 76) | | + +------+ + + | Mother | | | | + +------+ + + Social History + +-------+ +--------+ [...] +---------+ + | No | | | Alcoholic | | | | | Drinks/day: former | | | | | h/o Alcohol Abuse, | | | | | sober since 1987 | + + +---------+ + + + [...] recent travel history available. | + + Last Filed Vital Signs + + + + + | Vital Sign | Reading | Time Taken | Comments | + + + + + | Blood Pressure | 135/98 | 08/27/2018 11:49 AM | | | | | PDT | | + + + + + | Pulse | 59 | 08/27/2018 11:49 AM | | | | | PDT | | + + + + + | Temperature | 36.9 C (98.5 F) | 08/27/2018 11:49 AM | | | | | PDT | | + + + + + | Respiratory Rate | 16 | 08/27/2018 11:49 AM | | | | | PDT | | + + + + + | Oxygen Saturation | 98% | 05/22/2018 11:50 AM | | | | | PST | | + + + + + | Inhaled Oxygen | - | - | | | Concentration | | | | + + + + + | Weight | 73.3 kg (161 lb 11.2 | 08/27/2018 11:49 AM | | | | oz) | PDT | | + + + + + | Height | 162.6 cm (5' 4") | 08/27/2018 11:49 AM | | | | | PDT | | + + + + + | Body Mass Index | 27.76 | 08/27/2018 11:49 AM | | | | | PDT | | + + + + + Plan of Treatment + + + + + | Health Maintenance | Due Date | Last Done | Comments | + + + + + | Hepatitis C | | | | | Screening | 5 | | | + + + + + | Vaccine: Zoster (1 | | | | | of 2) | 5 | | | + + + + + | Breast Cancer | | | | | Screening | 0 | | | + + + + + | Vaccine: | | | | | Pneumococcal 65+ (1 | 0 | | | | of 2 - PCV13) | | | | + + + + + | Adult Annual | | | | | Wellness Visit | 5 | | | + + + + + | Vaccine: Influenza | | | | | (#1) | 9 | | | + + + + + | Colorectal Cancer | | 05/20/2018 | | | Screening (FIT) | 0 | | | + + + + + | Vaccine: | | 12/03/2016 | | | Dtap/Tdap/Td (2 - | 7 | | | | Td) | | | | + + + + + Results Not on filefrom Last 3 Months Insurance + +--------+ +--------+ +---------+--------+ | Payer | Benefi | Subscriber | Effect | Phone | Address | Type | | | t Plan | ID | irish | | | | | | / | | Dates | | | | | | Group | | | | | | + +--------+ +--------+ +---------+--------+ | MEDICARE | MEDICA | [id number] | 05/29/18 | [phone] | | Medica | | | RE | | 94-Pre | 5 | | re | | | PART A | | sent | | | | | | AND B | | | | | | + +--------+ +--------+ +---------+--------+ | MEDICARE | MEDICA | [id number] | 05/29/18 | [phone] | | Medica | | | RE | | 94-Pre | 5 | | re | | | PART A | | sent | | | | | | AND B | | | | | | + +--------+ +--------+ +---------+--------+ | MEDICARE | MEDICA | [id number] | 05/29/18 | [phone] | | Medica | | | RE | | 94-Pre | 5 | | re | | | PART A | | sent | | | | | | AND B | | | | | | + +--------+ +--------+ +---------+--------+ | [employer]AN | MODA | [id number] | 03/31/19 | [phone] | | Medica | | MEDICAID HMO | HEALTH | | 19-Pre | 1 | | id | | | MDCD | | sent | | | | | | [place] | | | | | | + +--------+ +--------+ +---------+--------+ | [place] | MEDICA | [id number] | | [phone] | | Med[place] | | | [place] | | 016-Pr | 2 | | id | | | PLUS | | esent | | | | + +--------+ +--------+ +---------+--------+ | [place] | MEDICA | [id number] | | [phone] | | Med[place] | | | [place] | | 018-Pr | 2 | | id | | | PLUS | | esent | | | | + +--------+ +--------+ +---------+--------+ + +--------+ +--------+ + + | Guarantor Name | Accoun | Relation to | Date | Phone | Billing Address | | | t Type | Patient | of | | | | | | | | | | + +--------+ +--------+ + + | Germaine Ugalde | Person | Self [birth year] | BAD ADDRESS | | D | al/Fam | | 1946 | [phone] | [place] [address] | | | demetrius | | | 1 (Home) | | + +--------+ +--------+ + + | Germaine Ugalde | Person | Self [birth year] | BAD ADDRESS | | D | al/Fam | | 1946 | [phone] | [place] [address] | | | demetrius | | | 1 (Home) | | + +--------+ +--------+ + + | Germaine Ugalde | Person | Self [birth year] | [address] | | D | al/Fam | | 1946 | [phone] | [place] [address] | | | demetrius | | | 1 (Home) | | + +--------+ +--------+ + + | Germaine Ugalde | Person | Self [birth year] | | BAD ADDRESS | | D | al/Fam | | 1946 | [phone] | [place] [address] | | | demetrius | | | 1 (Home) | | + +--------+ +--------+ + + Advance Directives + + + + + | Type | Date Recorded | Patient | Explanation | | | | Rf Microwave Engineer | | + + + + + | Power of | | | | | Bench Worker Binding | | | | + + + + + | Advance | 06/12/2015 7:56 | | | | Directive | AM | | | + + + + + + + + + + | Code Status | Date | Date | Comments | | | Activated | Inactivated | | + + + + + | Full Code | 05/18/2018 | 05/22/2018 | | | | 7:11 PM | 2:44 PM | | + + + + +
--- OUTSIDE RECORDS SUMMARY | ~2019-03-03 | XMS | Encounter Summary ---
Demographics + + + | Address | BAD ADDRESS | | | [place] [address] | + + + | Home Phone | | + + + | Preferred Language | Unknown | + + + | Marital Status | | + + + | Advent Affiliation | 1077 | + + + | Race | Unknown | + + + | Ethnic Group | Unknown | + + + Author + + + | Author | [facility] | | | and [place] | + + + | Organization | [facility] | | | and [place] | + + + | Address | Unknown | + + + | Phone | Unavailable | + + + Support + + + + + | Name | Relationship | Address | Phone | + + + + + | Hector Mack | ECON | [address] | | | | | [place] [address] | | + + + + + | Najma Krishnamurthy | ECON | Unknown | | + + + + + | Hector Mack | ECON | [address] | | | | | [place] | | | | | [address] | | + + + + + | Najma Sanches | ECON | Unknown | | + + + + + Care Team Providers + +------+ + | Care Electroencephalogram Technologist Name | Role | Phone | + +------+ + PCP | Unavailable | + +------+ + Encounter Details +--------+ + + + + | Date | Type | Department | Care Team | Description | +--------+ + + + + | 02/18/ | Hospital | [facility] | | | | 2005 | Encounter | [facility] | | | | | CENTER [address] | | | | | | [place], [place] | | | | | | [address] | | | | | | [phone] | | | +--------+ + + + [...]
--- OUTSIDE RECORDS SUMMARY | ~2019-03-03 | XMS | Encounter Summary ---
Demographics + + + | Address | BAD ADDRESS | | | [place] [address] | + + + | Home Phone | | + + + | Preferred Language | Unknown | + + + | Marital Status | | + + + | Episcopal Affiliation | 1077 | + + + | Race | Unknown | + + + | Ethnic Group | Unknown | + + + Author + + + | Author | [facility] | | | and [place] | + + + | Organization | [facility] | | | and [place] | + + + | Address | Unknown | + + + | Phone | Unavailable | + + + Support + + + + + | Name | Relationship | Address | Phone | + + + + + | Hector Mack | ECON | [address] | | | | | [place] [address] | | + + + + + | Najma Krishnamurthy | ECON | Unknown | | + + + + + | Hector Mack | ECON | [address] | | | | | [place] | | | | | [address] | | + + + + + | Najma Sanches | ECON | Unknown | | + + + + + Care Team Providers + +------+ + | Care Motorsports Technician Name | Role | Phone | + +------+ + PCP | Unavailable | + +------+ + Encounter Details +--------+ + + + + | Date | Type | Department | Care Team | Description | +--------+ + + + + | 10/18/ | Hospital | [facility] | | | | 1999 | Encounter | [facility] | | | | | | CENTER [address] | | | | | | [place] | | | | | | [address] | | | | | | [phone] | | | +--------+ + + + [...]
--- OUTSIDE RECORDS SUMMARY | ~2019-03-03 | XMS | Encounter Summary ---
Demographics + + + | Address | [address] | | | [place] [address] | + + + | Home Phone | | + + + | Preferred Language | Unknown | + + + | Marital Status | | + + + | Roman Catholic Affiliation | PRO | + + + [...] [place] | | | | | [address] | | + + + + + Care Team Providers + +------+ + | Care Night Court Magistrate Name | Role | Phone | + +------+ + | Tuan Chan MD | PCP | | + +------+ + Encounter Details +--------+ + + + + | Date | Type | Department | Care Team | Description | +--------+ + + + + | 05/05/ | Orders Only | [facility] | Herberth Ayala, | Obesity (Primary Dx) | | 2006 | | [address] MD | | | | | [place] Mailcode: [facility] | | | | | | [facility] | | | | | | and Healing, | | | | | | Building [address] | | | | | | Floor [place], [place] | | | | | | [address] | | | | | | [phone] | | | +--------+ + + + [...] | | + +------+--------+ + + | [facility] - SPECIMEN | Lab | Routin | Obesity | Ordered: 05/05/2006 | | COLLECT, | | e | | | | VENIPUNCTURE | | | | | + +------+--------+ + + documented as of this encounter Procedures + +--------+ + + + | Procedure Name | Priori | Date/Time | Associated Diagnosis | Comments | | | ty | | | | + +--------+ + + + | COMPLETE METABOLIC | Routin | 05/05/2006 | Obesity | Results for this | | SET | e | 12:59 PM | | procedure are in the | | (NA,K,CL,CO2,BUN,CRE | | PST | | results section. | | AT,GLUC,CA,AST,ALT,B | | | | | | NARGIS TOTAL,ALK | | | | | | PHOS,ALB,PROT TOTAL) | | | | | + +--------+ + + + | CBC ONLY | Routin | 05/05/2006 | Obesity | Results for this | | | e | 12:59 PM | | procedure are in the | | | | PST | | results section. | + +--------+ + + + documented in this encounter Results COMP METABOLIC SET (05/05/2006 12:59 PM PST) + +---------+ + + + | Component | Value | Ref Range | Performed | Pathologist | | | | | At | Signature | + +---------+ + + + | GLUCOSE, | 90 | 65 - 110 mg/dL | [facility] | | | PLASMA | | | DEPARTMENT | | | (LAB) | | | OF | | | | | | PATHOLOGY | | + +---------+ + + + | BUN, PLASMA | 7 | 6 - 20 mg/dL | [facility] | | | (LAB) | | | DEPARTMENT | | | | | | OF | | | | | | PATHOLOGY | | + +---------+ + + + | CREATININE | 1.0 | 0.6 - 1.1 mg/dL | [facility] | | | PLASMA | | | DEPARTMENT | | | (LAB) | | | OF | | | | | | PATHOLOGY | | + +---------+ + + + | TOTAL | 6.3 | 6.1 - 7.9 g/dL | [facility] [...] +---------+ + + + | CALCIUM, | 9.0 | 8.5 - 10.5 | [facility] | | | PLASMA | | mg/dL | DEPARTMENT | | | (LAB) | | | OF | | | | | | PATHOLOGY | | + +---------+ + + + | BILIRUBIN | 1.0 | 0.3 - 1.2 mg/dL | [facility] | | | TOTAL | | | DEPARTMENT | | | | | | OF | | | | | | PATHOLOGY | | + +---------+ + + + | ALK PHOS | 102 | 53 - 141 U/L | [facility] | | | | | | DEPARTMENT | | | | | | OF | | | | | | PATHOLOGY | | + +---------+ + + + | AST(SGOT) | 158 (H) | 15 - 41 U/L | [facility] | | | | | | DEPARTMENT | | | | | | OF | | | | | | PATHOLOGY | | + +---------+ + + + | SODIUM, | 143 | 136 - 145 | [facility] | | | PLASMA | | mmol/L | DEPARTMENT | | | (LAB) | | | OF | | | | | | PATHOLOGY | | + +---------+ + + + | POTASSIUM, | 3.4 (L) | 3.5 - 5.1 | [facility] | | | PLASMA | | mmol/L | DEPARTMENT | | | (LAB) | | | OF | | | | | | PATHOLOGY | | + +---------+ + + + | CHLORIDE, | 103 | 98 - 107 mmol/L | [facility] | | | PLASMA | | | DEPARTMENT | | | (LAB) | | | OF | | | | | | PATHOLOGY | | + +---------+ + + + | TOTAL CO2, | 32 (H) | 23 - 29 mmol/L | [facility] | | | PLASMA | | | DEPARTMENT | | | (LAB) | | | OF | | | | | | PATHOLOGY | | + +---------+ + + + | ALT (SGPT) | 58 (H) | 13 - 48 U/L | [facility] | | | | | | DEPARTMENT | | | | | | OF | | | | | | PATHOLOGY | | + +---------+ + + + + + | Specimen | + + | | + + + + + | Narrative | Performed At | + + + | [id number] Estimated GFR = 60 mL/min/1.73 sq m if non- | [facility] | | [id number] Estimated GFR > 60 mL/min/1.73 sq m if GFR | DEPARTMENT [...] | + + + + + | [facility] | [address] | [place] [address] | | | PATHOLOGY | [address] | | | + + + + + | [facility] DEPARTMENT OF | [address] | [place] [address] | | | PATHOLOGY | [address] | | | + + + + + CBC ONLY WITH PLATELET (05/05/2006 12:59 PM PST) + +-------+ + + + | Component | Value | Ref Range | Performed | Pathologist | | | | | At | Signature | + +-------+ + + + | WHITE CELL | 9.8 | 4.4 - 11.0 K/cu | [facility] | | | COUNT | | mm | DEPARTMENT | | | | | | OF | | | | | | PATHOLOGY | | + +-------+ + + + | RED CELL | 4.49 | 4.00 - 5.20 | [facility] | | | COUNT | | M/cu mm | DEPARTMENT | | | | | | OF | | | | | | PATHOLOGY | | + +-------+ + + + | HEMOGLOBIN | 13.7 | 12.0 - 16.0 | [facility] | | | | | g/dL | DEPARTMENT | | | | | | OF | | | | | | PATHOLOGY | | + +-------+ + + + | HEMATOCRIT | 40.0 | 36.0 - 46.0 % | [facility] | | | | | | DEPARTMENT | | | | | | OF | | | | | | PATHOLOGY | | + +-------+ + + + | MCV | 88.9 | 80.0 - 96.0 fL | [facility] | | | | | | DEPARTMENT | | | | | | OF | | | | | | PATHOLOGY | | + +-------+ + + + | MCHC | 34.2 | 33.4 - 35.5 | [facility] | | | | | g/dL | DEPARTMENT | | | | | | OF | | | | | | PATHOLOGY | | + +-------+ + + + | RDW | 13.5 | 11.5 - 15.0 % | [facility] | | | | | | DEPARTMENT | | | | | | OF | | | | | | PATHOLOGY | | + +-------+ + + + | PLATELET | 212 | 150 - 400 K/cu | [facility] [...] + | [facility] DEPARTMENT OF | [address] | [place] [address] | | | PATHOLOGY | [address] | | | + + + + + | [facility] | [address] | [place] [address] | | | PATHOLOGY | [address] | | | + + + + + documented in this encounter Visit Diagnoses + + | Diagnosis | + + | Obesity - Primary Obesity, unspecified | + + documented in this encounter"
--- OUTSIDE RECORDS SUMMARY | ~2019-03-03 | XMS | Encounter Summary ---
Demographics + + + | Address | [address] | | | [place] [address] | + + + | Home Phone | | + + + | Preferred Language | Unknown | + + + | Marital Status | | + + + | Zoroastrianism Affiliation | PRO | + + + | Race | White | + + + | Ethnic Group | Not or | + + + Author + + + | Author | [facility] | + + + | Organization | [facility] | + + + | Address | Unknown | + + + | Phone | Unavailable | + + + Support + + + + + | Name | Relationship | Address | Phone | + + + + + | Hector Mack | ECON | [address] | | | | | [place] | | | | | [address] | | + + + + + Care Team Providers + +------+ + | Care Faculty Criminal Justice Name | Role | Phone | + +------+ + | Tuan Chan MD | PCP | | + +------+ + Encounter Details +--------+ + + + + | Date | Type | Department | Care Team | Description | +--------+ + + + + | 06/25/ | Ancillary | Registration [id number] | Wes Wolff MD | | | 2005 | Registratio | [facility] | [address] | | | | [address] | [address] Mailcode: [id number] | [place], [place] | | | | | [place], [place] | [address] | | | | | [address] | [phone] | | | | | [phone] | | | +--------+ + + + [...] | + +--------+ + + + | INR | Urgent | 06/25/2005 | | Results for this | | | | 9:45 AM | | procedure are in the | | | | PST | | results section. | + +--------+ + + + | BASIC METABOLIC SET | Urgent | 06/25/2005 | | Results for this | | (NA, K, CL, TCO2, | | 9:45 AM | | procedure are in the | | BUN, CR, GLU, CA) | | PST | | results section. | + +--------+ + + + | HEMATOCRIT | Urgent | 06/25/2005 | | Results for this | | | | 9:45 AM | | procedure are in the | | | | PST | | results section. | + +--------+ + + + documented in this encounter Results HEMATOCRIT (06/25/2005 9:45 AM PST) + +-------+ + + + | Component | Value | Ref Range | Performed | Pathologist | | | | | At | Signature | + +-------+ + + + | HEMATOCRIT | 38.4 | 36.0 - 46.0 % | [facility] [...] [facility] DEPARTMENT | [address] | [place] [address] | | | PATHOLOGY | [address] | | | + + + + + | [facility] DEPARTMENT | [address] | [place] [address] | | | PATHOLOGY | [address] | | | + + + + + PROTHROMBIN TIME (06/25/2005 9:45 AM PST) + + + + + + | Component | Value | Ref Range | Performed | Pathologist | | | | | At | Signature | + + + + + + | INR | 0.90Comment: | 0.90 - 1.20 INR | [facility] | | | | PT INR Therapeutic | | DEPARTMENT | | | | ranges for full | | OF | | | | anticoagulation: | | PATHOLOGY | | | | INR for | | | | | | Venous Thromboembolism | | | | | | | | | | | | (2.0-3.0)INR | | | | | | INR for most | | | | | | patients with mech. | | | | | | valves (2.5-3.5)INR | | | | + + + + + + + + | Specimen | + + | | + + + + + + + | Performing | Address | City/State/Zipcode | Phone Number | | Organization | | | | + + + + + | [facility] | [address] | [place] [address] | | | PATHOLOGY | [address] | | | + + + + + | [facility] | [address] | [place] [address] | | | PATHOLOGY | [address] | | | + + + + + BASIC METABOLIC SET (06/25/2005 9:45 AM PST) + +---------+ + + + | Component | Value | Ref Range | Performed | Pathologist | | | | | At | Signature | + +---------+ + + + | GLUCOSE, | 133 (H) | 65 - 110 mg/dL | [facility] | | | PLASMA | | | DEPARTMENT | | | (LAB) | | | OF | | | | | | PATHOLOGY | | + +---------+ + + + | BUN, PLASMA | 16 | 6 - 20 mg/dL | [facility] [...] +---------+ + + + | POTASSIUM, | 4.0 | 3.5 - 5.1 | [facility] | | | PLASMA | | mmol/L | DEPARTMENT | | | (LAB) | | | OF | | | | | | PATHOLOGY | | + +---------+ + + + | CHLORIDE, | 106 | 98 - 107 mmol/L | [facility] | | | PLASMA | | | DEPARTMENT | | | (LAB) | | | OF | | | | | | PATHOLOGY | | + +---------+ + + + | TOTAL CO2, | 28 | 23 - 29 mmol/L | [facility] | | | PLASMA | | | DEPARTMENT | | | (LAB) | | | OF | | | | | | PATHOLOGY | | + +---------+ + + + | CALCIUM, | 8.6 | 8.5 - 10.5 | [facility] | | | PLASMA | | mg/dL | DEPARTMENT | | | (LAB) | | | OF | | | | | | PATHOLOGY | | + +---------+ + + + + + | Specimen | + + | | + + + + + | Narrative | Performed At | + + + | [id number] Estimated GFR > 60 mL/min/1.73 sq m if non- | [facility] | | [id number] Estimated GFR > 60 mL/min/1.73 sq m [...] | + + + + + | [facility] | [facility] | [place] [address] | | | PATHOLOGY | [address] | | | + + + + + | [facility] | [address] | [place] [address] | | | PATHOLOGY | [address] | | | + + + + + documented in this encounter Visit Diagnoses Not on filedocumented in this encounter"
--- OUTSIDE RECORDS SUMMARY | ~2019-03-03 | XMS | Encounter Summary ---
Demographics + + + | Address | [address] | | | [place] [address] | + + + | Home Phone | | + + + | Preferred Language | Unknown | + + + | Marital Status | | + + + | Yarsanism Affiliation | PRO | + + + | Race | White | + + + | Ethnic Group | Not or | + + + Author + + + | Author | [facility] | + + + | Organization | [facility] | + + + | Address | Unknown | + + + | Phone | Unavailable | + + + Support + + + + + | Name | Relationship | Address | Phone | + + + + + | Hector Mack | ECON | [address] | | | | | [place] | | | | | [address] | | + + + + + Care Team Providers + +------+ + | Care Workforce Development Vice President Name | Role | Phone | + +------+ + | Tuan Chan MD | PCP | | + +------+ + Encounter Details +--------+ + + + + | Date | Type | Department | Care Team | Description | +--------+ + + + + | 01/20/ | Ancillary | Registration [id number] | Herberth Ayala, | | | 2005 | Registratio | PARMINDER Powell MD | | | | n | [address] Mailcode: [id number] | | | | | | [place], [place] | | | | | | [address] | | | | | | [phone] | | | +--------+ + + + [...] + | COMPLETE METABOLIC | Routin | 01/20/2006 | | Results for this | | SET | e | 1:20 PM | | procedure are in the | | (NA,K,CL,CO2,BUN,CRE | | PDT | | results section. | | AT,GLUC,CA,AST,ALT,B | | | | | | NARGIS TOTAL,ALK | | | | | | PHOS,ALB,PROT TOTAL) | | | | | + +--------+ + + + | CBC ONLY | Routin | 01/20/2006 | | Results for this | | | e | 1:20 PM | | procedure are in the | | | | PDT | | results section. | + +--------+ + + + | TYPE AND SCREEN | Routin | 01/20/2006 | | Results for this | | | e | 1:20 PM | | procedure are in the | | | | PDT | | results section. | + +--------+ + + + documented in this encounter Results TYPE AND SCREEN (01/20/2006 1:20 PM PDT) + +-------+ + + + | Component | Value | Ref Range | Performed | Pathologist | | | | | At | Signature | + +-------+ + + + | ABO GROUP | O | | [facility] | | | | | | DEPARTMENT | | | | | | OF | | | | | | PATHOLOGY | | + +-------+ + + + | RH TYPE | POS | | [facility] | | | | | | DEPARTMENT | | | | | | OF | | | | | | PATHOLOGY | | + +-------+ + + + | ANTIBODY | NEG | | [facility] | | | SCREEN | | | DEPARTMENT | | | [...] + + | [facility] | [address] | [place] [address] | | | PATHOLOGY | [address] | | | + + + + + | [facility] | [address] | [place] [address] | | | PATHOLOGY | [address] | | | + + + + + COMP METABOLIC SET (01/20/2006 1:20 PM PDT) + +--------+ + + + | Component | Value | Ref Range | Performed | Pathologist | | | | | At | Signature | + +--------+ + + + | GLUCOSE, | 87 | 65 - 110 mg/dL | [facility] | | | PLASMA | | | DEPARTMENT | | | (LAB) | | | OF | | | | | | PATHOLOGY | | + +--------+ + + + | BUN, PLASMA | 9 | 6 - 20 mg/dL | [facility] | | | (LAB) | | | DEPARTMENT | | | | | | OF | | | | | | PATHOLOGY | | + +--------+ + + + | CREATININE | 0.9 | 0.6 - 1.1 mg/dL | [facility] | | | PLASMA | | | DEPARTMENT | | | (LAB) | | | OF | | | | | | PATHOLOGY | | + +--------+ + + + | TOTAL | 7.4 | 6.1 - 7.9 g/dL | [facility] | | | PROTEIN, | | | DEPARTMENT | | | PLASMA | | | OF | | | (LAB) | | | PATHOLOGY | | + +--------+ + + + | ALBUMIN, | 3.8 | 3.5 - 4.7 g/dL | [facility] | | | PLASMA | | | DEPARTMENT | | | (LAB) | | | OF | | | | | | PATHOLOGY | | + +--------+ + + + | CALCIUM, | 8.7 | 8.5 - 10.5 | [facility] | | | PLASMA | | mg/dL | DEPARTMENT | | | (LAB) | | | OF | | | | | | PATHOLOGY | | + +--------+ + + + | BILIRUBIN | 0.4 | 0.3 - 1.2 mg/dL | [facility] | | | TOTAL | | | DEPARTMENT | | | | | | OF | | | | | | PATHOLOGY | | + +--------+ + + + | ALK PHOS | 50 (L) | 53 - 141 U/L | [facility] | | | | | | DEPARTMENT | | | | | | OF | | | | | | PATHOLOGY | | + +--------+ + + + | AST(SGOT) | 16 | 15 - 41 U/L | [facility] | | | | | | DEPARTMENT | | | | | | OF | | | | | | PATHOLOGY | | + +--------+ + + + | SODIUM, | 140 | 136 - 145 | [facility] | | | PLASMA | | mmol/L | DEPARTMENT | | | (LAB) | | | OF | | | | | | PATHOLOGY | | + +--------+ + + + | POTASSIUM, | 3.6 | 3.5 - 5.1 | [facility] | | | PLASMA | | mmol/L | DEPARTMENT | | | (LAB) | | | OF | | | | | | PATHOLOGY | | + +--------+ + + + | CHLORIDE, | 105 | 98 - 107 mmol/L | [facility] | | | PLASMA | | | DEPARTMENT | | | (LAB) | | | OF | | | | | | PATHOLOGY | | + +--------+ + + + | TOTAL CO2, | 28 | 23 - 29 mmol/L | [facility] | | | PLASMA | | | DEPARTMENT | | | (LAB) | | | OF | | | | | | PATHOLOGY | | + +--------+ + + + | ALT (SGPT) | 14 | 13 - 48 U/L | [facility] | | | | | | DEPARTMENT | | | | | | OF | | | | | | PATHOLOGY | | + +--------+ + + + + + | Specimen | + + | | + + + + + | Narrative | Performed At | + + + | [id number] Estimated GFR > 60 mL/min/1.73 sq m if non- | [facility] | | [id number] Estimated GFR > 60 mL/min/1.73 sq m [...] + | [facility] DEPARTMENT OF | [address] | [place] [address] | | | PATHOLOGY | [address] | | | + + + + + | [facility] DEPARTMENT OF | [address] | [place] [address] | | | PATHOLOGY | [address] | | | + + + + + CBC ONLY WITH PLATELET (01/20/2006 1:20 PM PDT) + +-------+ + + + | Component | Value | Ref Range | Performed | Pathologist | | | | | At | Signature | + +-------+ + + + | WHITE CELL | 8.8 | 4.4 - 11.0 K/cu | [facility] | | | COUNT | | mm | DEPARTMENT | | | | | | OF | | | | | | PATHOLOGY | | + +-------+ + + + | RED CELL | 4.48 | 4.00 - 5.20 | [facility] | | | COUNT | | M/cu mm | DEPARTMENT | | | | | | OF | | | | | | PATHOLOGY | | + +-------+ + + + | HEMOGLOBIN | 13.5 | 12.0 - 16.0 | [facility] | [...] +-------+ + + + | MCV | 89.4 | 80.0 - 96.0 fL | [facility] | | | | | | DEPARTMENT | | | | | | OF | | | | | | PATHOLOGY | | + +-------+ + + + | MCHC | 33.8 | 33.4 - 35.5 | [facility] | | | | | g/dL | DEPARTMENT | | | | | | OF | | | | | | PATHOLOGY | | + +-------+ + + + | RDW | 13.6 | 11.5 - 15.0 % | [facility] | | | | | | DEPARTMENT | | | | | | OF | | | | | | PATHOLOGY | | + +-------+ + + + | PLATELET | 251 | 150 - 400 K/cu | [facility] [...] + + + + + | [facility] | [address] | [place] [address] | | | PATHOLOGY | [address] | | | + + + + + | [facility] | [address] | [place] [address] | | | PATHOLOGY | [address] | | | + + + + + documented in this encounter Visit Diagnoses Not on filedocumented in this encounter"
--- OUTSIDE RECORDS SUMMARY | ~2019-03-03 | XMS | Encounter Summary ---
Demographics + + + | Address | BAD ADDRESS | | | [place] [address] | + + + | Home Phone | | + + + | Preferred Language | Unknown | + + + | Marital Status | | + + + | Yazidi Affiliation | 1077 | + + + | Race | Unknown | + + + | Ethnic Group | Unknown | + + + Author + + + | Author | [facility] | | | and [place] | + + + | Organization | [facility] | | | and [...] | | | | | [place] [address] | | + + + + + | Najma Krishnamurthy | ECON | Unknown | | + + + + + | Hector Mack | ECON | [address] | | | | | [place] | | | | | [address] | | + + + + + | Najma Sanches | ECON | Unknown | | + + + + + Care Team Providers + +------+ + | Care Business Services Analyst Name | Role | Phone | + +------+ + PCP | Unavailable | + +------+ + Encounter Details +--------+ + + + + | Date | Type | Department | Care Team | Description | +--------+ + + + + | 07/15/ | Hospital | [facility] | Rina Diaz MD | | | 2003 - | Encounter | [facility] | [address] | | | | | INTENSIVE CARE UNIT | [place] [address] | | | 07/16/ | | [address] | [phone] | | | 2003 | | [place], [place] | | | | | | [address] | | | | | | [phone] | | | +--------+ + + + [...]
--- OUTSIDE RECORDS SUMMARY | ~2019-03-03 | XMS | Encounter Summary ---
Demographics + + + | Address | BAD ADDRESS | | | [place] [address] | + + + | Home Phone | | + + + | Preferred Language | Unknown | + + + | Marital Status | | + + + | Episcopalian Affiliation | 1077 | + + + | Race | Unknown | + + + | Ethnic Group | Unknown | + + + Author + + + | Author | [facility] | | | and [place] | + + + | Organization | [facility] | | | and [place] | + + + | Address | Unknown | + + + | Phone | Unavailable | + + + Support + + + + + | Name | Relationship | Address | Phone | + + + + + | Hector Mack | ECON | [address] | | | | | [place] [address] | | + + + + + | Najma Krishnamurthy | ECON | Unknown | | + + + + + | Hector Mack | ECON | [address] | | | | | [place] | | | | | [address] | | + + + + + | Najma Sanches | ECON | Unknown | | + + + + + Care Team Providers + +------+ + | Care Encapsulator Name | Role | Phone | + +------+ + PCP | Unavailable | + +------+ + Encounter Details +--------+ + + + + | Date | Type | Department | Care Team | Description | +--------+ + + + + | 08/27/ | Hospital | [facility] | Duarte Moon MD | | | 2012 | Encounter | HOSPITAL RESPIRATORY | [address] | | | | | THERAPY [address] | [place] | | | | | [place] | [address] | | | | | [address] | | | | | | [phone] | | | +--------+ + + + [...]
--- OUTSIDE RECORDS SUMMARY | ~2019-03-03 | XMS | Encounter Summary ---
Demographics + + + | Address | [address] | | | [place] [address] | + + + | Home Phone | | + + + | Preferred Language | Unknown | + + + | Marital Status | | + + + | Anabaptist Affiliation | PRO | + + + | Race | White | + + + | Ethnic Group | Not or | + + + Author + + + | Author | [facility] | + + + | Organization | [facility] | + + + | Address | Unknown | + + + | Phone | Unavailable | + + + Support + + + + + | Name | Relationship | Address | Phone | + + + + + | Hector Mack | ECON | [address] | | | | | [place] | | | | | [address] | | + + + + + Care Team Providers + +------+ + | Care Account Executive Software Sales Name | Role | Phone | + [...] | Dyslipidemia; | | | | Mailcode: [id number] | | Dysmetabolic | | | | [facility] | | Syndrome X; Sleep | | | | [address], | | Apnea; Gout; DM Circ | | | | [place] [address] | | Dis Type II, | | | | [phone] | | Uncontrolled (HCC) | +--------+ + [...] + | [facility] | [address] | [place] [address] | | | PATHOLOGY | [address] | | | + + + + + | [facility] | [facility] | [facility] [place] [address] | | | PATHOLOGY | [address] | | | + + + + + documented in this encounter Visit Diagnoses + + | Diagnosis | + + | CAD (coronary artery disease) Coronary atherosclerosis of unspecified type of vessel, | | nome or graft | + + | Dyslipidemia [...]
--- OUTSIDE RECORDS SUMMARY | ~2019-03-03 | XMS | Encounter Summary ---
Demographics + + + | Address | [address] | | | [place] [address] | + + + | Home Phone | | + + + | Preferred Language | Unknown | + + + | Marital Status | | + + + | Mormon Affiliation | PRO | + + + | Race | White | + + + | Ethnic Group | Not or | + + + Author + + + | Author | [facility] | + + + | Organization | [facility] | + + + | Address | Unknown | + + + | Phone | Unavailable | + + + Support + + + + + | Name | Relationship | Address | Phone | + + + + + | Hector Mack | ECON | [address] | | | | | [place] | | | | | [address] | | + + + + + Care Team Providers + +------+ + | Care Shelter Monitor Name | Role | Phone | + +------+ + | Tuan Chan MD | PCP | | + +------+ + Reason for Visit + + + | Reason | Comments | + + + | New patient | | | consultation | | + + + Encounter Details +--------+---------+ + + + | Date | Type | Department | Care Team | Description | +--------+---------+ + + + | 12/11/ | Office | Plastic and | Ernst Mark, | Obesity (Primary Dx) | | 2006 | Visit | Reconstructive | ,PhD [address] | | | | | Surgery at [facility] [address] [place], [place] | | | | | [address] | [address] | | | | | Mailcode: [facility] | [phone] | | | | | [facility] | | | | | | and Healing, | | | | | | Building [address], 5th | | | | | | Floor [facility] [place] | | | | | | [address] | | | | | | [phone] | | | +--------+---------+ + + + [...] + + + | Blood Pressure | 171/84 | 12/11/2006 9:49 AM | | | | | PDT | | + + + + + | Pulse | 54 | 12/11/2006 9:49 AM | | | | | PDT | | + + + + + | Temperature | - | - | | + + + + + | Respiratory Rate | 20 | 12/11/2006 9:49 AM | | | | | PDT | | + + + + + | Oxygen Saturation | 99% | 12/11/2006 9:49 AM | | | | | PDT | | + + + + + | Inhaled Oxygen | - | - | | | Concentration | | | | + + + + + | Weight | 94.8 kg (209 lb) | 12/11/2006 9:49 AM | | | | | PDT | | + + + + + | Height | - | - | | + + + + + | Body Mass Index | 35.87 | 05/05/2006 11:49 AM | | | | | PST | | + + + + + documented in this encounter Progress Notes Ernst Mark - 12/11/2006 11:42 AM PDTGermaine Heard is a 61 yo female s/p gastric by pass in 01/2006 and subsequent weight loss from 325 to 209. Weight been stable around 210 l bs for the past few months. Patient anticipates taht this will be her stable weight. Patie nt is bothered by abdominal pannus. + intertrigo. Interferes with walking. Exam Well healed ruq scar Abdominal pannus No detectable hernia Skin in good order Impression Good candidate for panniculectomy Patient also interested in breast surgery at the same time Will refer to Dr. Amin for evaluation of breasts. Dr. Amin may perefer to perform both body contour procedures or I am happy to perform gan niculectomy if desired. Plan No charge for visit Refer to Dr. Amin documented in this encounte r Plan of Treatment Not on filedocumented as of this encounter Visit Diagnoses + + | Diagnosis | + + | Obesity - Primary Obesity, unspecified | + + documented in this encounter"
--- OUTSIDE RECORDS SUMMARY | ~2019-03-03 | XMS | Encounter Summary ---
Demographics + + + | Address | BAD ADDRESS | | | [place] [address] | + + + | Home Phone | | + + + | Preferred Language | Unknown | + + + | Marital Status | | + + + | Pentecostal Affiliation | 1077 | + + + | Race | Unknown | + + + | Ethnic Group | Unknown | + + + Author + + + | Author | [facility] | | | and [place] | + + + | Organization | [facility] | | | and [place] | + + + | Address | Unknown | + + + | Phone | Unavailable | + + + Support + + + + + | Name | Relationship | Address | Phone | + + + + + | Hector Mack | ECON | [address] | | | | | [place] [address] | | + + + + + | Najma Krishnamurthy | ECON | Unknown | | + + + + + | Hector Mack | ECON | [address] | | | | | [place] | | | | | [address] | | + + + + + | Najma Sanches | ECON | Unknown | | + + + + + Care Team Providers + +------+ + | Care Elderly Sitter Name | Role | Phone | + +------+ + PCP | Unavailable | + +------+ + Encounter Details +--------+ + + + + | Date | Type | Department | Care Team | Description | +--------+ + + + + | 08/01/ | Hospital | [facility] | Rina Diaz MD | CHEST PAIN NEC | | 2003 - | Encounter | [facility] | [address] | | | | | INTENSIVE CARE UNIT | [place] [address] | | | 08/02/ | | [address] | [phone] | | | 2003 | | [place], [place] | | | | | | [address] | | | | | | [phone] | | | +--------+ + + + [...]
--- OUTSIDE RECORDS SUMMARY | ~2019-03-03 | XMS | Encounter Summary ---
Demographics + + + | Address | BAD ADDRESS | | | [place] [address] | + + + | Home Phone | | + + + | Preferred Language | Unknown | + + + | Marital Status | | + + + | Evangelical Affiliation | 1077 | + + + | Race | Unknown | + + + | Ethnic Group | Unknown | + + + Author + + + | Author | [facility] | | | and [place] | + + + | Organization | [facility] | | | and [place] | + + + | Address | Unknown | + + + | Phone | Unavailable | + + + Support + + + + + | Name | Relationship | Address | Phone | + + + + + | Hector Mack | ECON | [address] | | | | | [place] [address] | | + + + + + | Najma Krishnamurthy | ECON | Unknown | | + + + + + | Hector Mack | ECON | [address] | | | | | [place] | | | | | [address] | | + + + + + | Najma Sanches | ECON | Unknown | | + + + + + Care Team Providers + +------+ + | Care Activities Director Scouting Name | Role | Phone | + +------+ + PCP | Unavailable | + +------+ + Encounter Details +--------+ + + + + | Date | Type | Department | Care Team | Description | +--------+ + + + + | 09/07/ | Hospital | [facility] | Conversion | Chest pain | | 2012 | Encounter | CONVERSION [address] | Transaction, | | | | | [address] | Provider Unknown | | | | | [place], [place] | [phone] | | | | | [address] | | | | | | [phone] | | | +--------+ + + + [...] + +--------+ + + + | XR CHEST 1 VIEW | Routin | 09/04/2012 | | Results for this | | | e | 9:58 AM | | procedure are in the | | | | PDT | | results section. | + +--------+ + + + documented in this encounter Results XR Chest 1 Vw (09/04/2012 9:58 AM PDT) + + | Specimen | + + | | + + + + + | Narrative | Performed At | + + + | This is a non-reportable procedure without a radiologist report and | | | is used for image storage only | | + + + + + | Procedure Note | + + | Javier Gay - 11/20/2018 8:07 PM PDT This is a non-reportable procedure | | without a radiologist report and isused for image storage only | + + documented in this encounter Visit Diagnoses + + | Diagnosis | + + | Chest pain Chest pain, unspecified | + + documented in this encounter"
--- OUTSIDE RECORDS SUMMARY | ~2019-03-03 | XMS | Encounter Summary ---
Demographics + + + | Address | [address] | | | [place] [address] | + + + | Home Phone | | + + + | Preferred Language | Unknown | + + + | Marital Status | | + + + | Confucianism Affiliation | PRO | + + + | Race | White | + + + | Ethnic Group | Not or | + + + Author + + + | Author | [facility] | + + + | Organization | [facility] | + + + | Address | Unknown | + + + | Phone | Unavailable | + + + Support + + + + + | Name | Relationship | Address | Phone | + + + + + | Hector Mack | ECON | [address] | | | | | [place] | | | | | [address] | | + + + + + Care Team Providers + +------+ + | Care Scow Hand Name | Role | Phone | + [...] 06/02/ | Office | Urology Adult | Noe Hdez, | Urolithiasis | | 2007 | Visit | [address] | MD [address] | (Primary Dx) | | | | Mailcode: [id number] | [place], [place] | | | | | [facility] | [address] | | | | | and [place], | [phone] | | | | | [facility] | | | | | | Floor [place], [place] | | | | | | [address] | | | | | | [phone] | | | +--------+---------+ + + + [...] 1 Years of Education: N/A Occupational History [employer] Social History Main Topics Tobacco Use: Quit [...] [facility] | [address] | [place], [place] | | | [facility]ARE | [address] | [address] | | | TESTS | | | | + + + + + | [facility] | [address] | [place], [place] | | | TESTS | [address] | [address] | | + + + + + documented in this encounter Visit Diagnoses + + | Diagnosis | + + | Urolithiasis - Primary Urinary calculus, unspecified | + + documented in this encounter"
--- OUTSIDE RECORDS SUMMARY | ~2019-03-03 | XMS | Encounter Summary ---
Demographics + + + | Address | BAD ADDRESS | | | [place] [address] | + + + | Home Phone | | + + + | Preferred Language | Unknown | + + + | Marital Status | | + + + | Worship Affiliation | 1077 | + + + | Race | Unknown | + + + | Ethnic Group | Unknown | + + + Author + + + | Author | [facility] | | | and [place] | + + + | Organization | [facility] | | | and [...] | | | | | [place] [address] | | + + + + + | Najma Krishnamurthy | ECON | Unknown | | + + + + + | Hector Mack | ECON | [address] | | | | | [place] | | | | | [address] | | + + + + + | Najma Sanches | ECON | Unknown | | + + + + + Care Team Providers + +------+ + | Care Production Line Worker Name | Role | Phone | + +------+ + PCP | Unavailable | + +------+ + Encounter Details +--------+ + + + + | Date | Type | Department | Care Team | Description | +--------+ + + + + | 11/23/ | Hospital | [facility] | Herberth Mayorga | | | 1996 | Encounter | MED CTR XRAY [address] | [place] [address] | | | | | [place] | [place], [place] | | | | | [place] [address] | [address] | | | | | [phone] | [phone] | | | | | | | [...]
--- OUTSIDE RECORDS SUMMARY | ~2019-03-03 | XMS | Encounter Summary ---
Demographics + + + | Address | BAD ADDRESS | | | [place] [address] | + + + | Home Phone | | + + + | Preferred Language | Unknown | + + + | Marital Status | | + + + | Jew Affiliation | 1077 | + + + | Race | Unknown | + + + | Ethnic Group | Unknown | + + + Author + + + | Author | [facility] | | | and [place] | + + + | Organization | [facility] [...] | | | | | [place] [address] | | + + + + + | Najma Krishnamurthy | ECON | Unknown | | + + + + + | Hector Mack | ECON | [address] | | | | | [place] | | | | | [address] | | + + + + + | Najma Sanches | ECON | Unknown | | + + + + + Care Team Providers + +------+ + | Care Medical Front Desk Coordinator Name | Role | Phone | + +------+ + | Tuan Chan MD | PCP | | + +------+ + Encounter Details +--------+ + + + + | Date | Type | Department | Care Team | Description | +--------+ + + + + | 05/18/ | Hospital | [facility] | Oralia Koo | | | 2019 | Encounter | HOSPITAL GROUND | [address] | | | | | [address] | [facility] | | | | [address] | [place] [address] | | | | | [place], [place] | [phone] | | | | | [address] | | | | | | [phone] | | | +--------+ + + + [...] +---------+ + | No | | | hx of alcoholism, | | | | | sober since [...] + + +---------+ + + | acetaminophen | Take 2 tablets by | 120 | 0 | 05/22/19 | | | (TYLENOL) 325 mg | mouth every 4 hours | tablet | | 19 | | | tablet | as needed for Pain | | | | | | | (or fever >= 38.6 C | | | | | | | (101.5 F)). | | | | | + + + +---------+ + + | aspirin 81 mg | Take 1 tablet by | 30 | 0 | 05/22/19 | | | chewable tablet | mouth Daily. | tablet | | 19 | | + + + +---------+ + + | atorvaSTATin | Take 1 tablet by | 30 | 0 | 05/22/19 | | | (LIPITOR) 40 mg | mouth nightly. | tablet | | 19 | | | tablet | | | | | | + + + +---------+ + + | clopidogrel | Take 1 tablet by | 30 | 0 | 05/22/19 | | | (PLAVIX) 75 mg | mouth Daily. | tablet | | 19 | | | tablet | | | | | | + + + +---------+ + + | ferrous sulfate | Take 1 tablet by | 30 | 0 | 05/22/19 | | | 325 mg tablet | mouth daily (with | tablet | | 19 | | | | breakfast). | | | | | + + + +---------+ + + | lisinopril | Take 1 tablet by | 30 | 0 | 05/22/19 | | | (PRINIVIL, ZESTRIL) | mouth Daily. | tablet | | 19 | | | 20 mg tablet | | | | | | + + + +---------+ + + | metoprolol | Take 0.5 tablets by | 60 | 0 | 05/22/19 | | | tartrate (LOPRESSOR) | mouth 2 times daily. | tablet | | 19 | | | 25 mg tablet | | | | | | + + + +---------+ + + | nicotine | Place 1 patch onto | 21 | 0 | 05/22/19 | | | (NICODERM) 14 mg/24 | the skin Daily. | patch | | 19 | | | hr | | | | | | + + + +---------+ + + | nystatin | Wash and dry under | 60 g | 0 | 05/22/19 | | | (MYCOSTATIN) powder | both breasts, apply | | | 19 | | | | nystatin powder | | | | | | | under both breasts | | | | | + + + +---------+ + + | potassium chloride | Take 1 tablet by | 90 | 0 | 05/22/19 | | | (KLOR-CON) 10 MEQ | mouth Daily. | tablet | | 19 | | | ER tablet | | | | | | + + + +---------+ + + | acetaminophen | Take 2 tablets by | 120 | 0 | 05/22/19 | | | (TYLENOL) 325 mg | mouth every 4 hours | tablet | | 19 | 9 | | tablet | as needed for Pain | | | | | | | (or fever >= 38.6 C | | | | | | | (101.5 F)). | | | | | + + + +---------+ + + | aspirin 81 mg | Take 1 tablet by | 30 | 0 | 05/22/19 | | | chewable tablet | mouth Daily. | tablet | | 19 | 9 | + + + +---------+ + + | atorvaSTATin | Take 1 tablet by | 30 | 0 | 05/22/19 | | | (LIPITOR) 40 mg | mouth nightly. | tablet | | 19 | 9 | | tablet | | | | | | + + + +---------+ + + | cefdinir (OMNICEF) | Take 1 capsule by | 6 | 0 | 05/22/19 | | | 300 mg | mouth 2 times daily | capsule | | 19 | 9 | | capsuleIndications: | for 2 days. | | | | | | UTI - LOWER | Indications: UTI - | | | | | | | Lower | | | | | + + + +---------+ + + | cefdinir (OMNICEF) | Take 1 capsule by | 6 | 0 | 05/22/19 | | | 300 mg | mouth 2 times daily | capsule | | 19 | 9 | | capsuleIndications: | for 2 days. | | | | | | UTI - LOWER | Indications: UTI - | | | | | | | Lower | | | | | + + + +---------+ + + | clopidogrel | Take 1 tablet by | 30 | 0 | 05/22/19 | | | (PLAVIX) 75 mg | mouth Daily. | tablet | | 19 | 9 | | tablet | | | | | | + + + +---------+ + + | clopidogrel | Take 75 mg by mouth | | 0 | | | | (PLAVIX) 75 mg | Daily. | | | | 9 | | tablet | | | | | | + + + +---------+ + + | ferrous sulfate | Take 1 tablet by | 30 | 0 | 05/22/19 | | | 325 mg tablet | mouth daily (with | tablet | | 19 | 9 | | | breakfast). | | | | | + + + +---------+ + + | lisinopril | Take 1 tablet by | 30 | 0 | 05/22/19 | | | (PRINIVIL, ZESTRIL) | mouth Daily. | tablet | | 19 | 9 | | 20 mg tablet [...] +---------+ + + | metoprolol | Take 0.5 tablets by | 60 | 0 | 05/22/19 | | | tartrate (LOPRESSOR) | mouth 2 times daily. | tablet | | 19 | 9 | | 25 mg tablet | | | | | | + + + +---------+ + + | metoprolol | Take 50 mg by mouth | | 0 | | | | tartrate (LOPRESSOR) | 2 times daily. | | | | 9 | | 50 mg tablet | | | | | [...] + + + +---------+ + + | nicotine | Place 1 patch onto | 21 | 0 | 05/22/19 | | | (NICODERM) 14 mg/24 | the skin Daily. | patch | | 19 | 9 | | hr | | | | | | + + + +---------+ + + | nystatin | Wash and dry under | 60 g | 0 | 05/22/19 | | | (MYCOSTATIN) powder | both breasts, apply | | | 19 | 9 | | | nystatin powder | | | | | | | under both breasts | | | | | + + [...] + + | potassium chloride | Take 1 tablet by | 90 | 0 | 05/22/19 | | | (KLOR-CON) 10 MEQ | mouth Daily. | tablet | | 19 | 9 | | ER tablet | | | | | | + + + +---------+ + + documented as of this encounter Plan of Treatment Not on filedocumented as of this encounter Visit Diagnoses Not on filedocumented in this encounter"
--- OUTSIDE RECORDS SUMMARY | ~2019-03-03 | XMS | Encounter Summary ---
Demographics + + + | Address | BAD ADDRESS | | | [place] [address] | + + + | Home Phone | | + + + | Preferred Language | Unknown | + + + | Marital Status | | + + + | Congregational Affiliation | 1077 | + + + | Race | Unknown | + + + | Ethnic Group | Unknown | + + + Author + + + | Author | [facility] | | | and [place] | + + + | Organization | [facility] | | | and [...] | | | | | [place] [address] | | + + + + + | Najma Krishnamurthy | ECON | Unknown | | + + + + + | Hector Mack | ECON | [address] | | | | | [place] | | | | | [address] | | + + + + + | Najma Sanches | ECON | Unknown | | + + + + + Care Team Providers + +------+ + | Care Nurse Examiner Name | Role | Phone | + +------+ + PCP | Unavailable | + +------+ + Encounter Details +--------+ + + + + | Date | Type | Department | Care Team | Description | +--------+ + + + + | 07/26/ | Hospital | [facility] | | | | 1996 | Encounter | MED CTR EMERGENCY | | | | | | CENTER [address] | | | | | | [place] | | | | | | [address] | | | | | | [phone] | | | +--------+ + + + [...]
--- OUTSIDE RECORDS SUMMARY | ~2019-03-03 | XMS | Encounter Summary ---
Demographics + + + | Address | [address] | | | [place] [address] | + + + | Home Phone | | + + + | Preferred Language | Unknown | + + + | Marital Status | | + + + | Orthodoxy Affiliation | PRO | + + + | Race | White | + + + | Ethnic Group | Not or | + + + Author + + + | Author | [facility] | + + + | Organization | [facility] | + + + | Address | Unknown | + + + | Phone | Unavailable | + + + Support + + + + + | Name | Relationship | Address | Phone | + + + + + | Hector Mack | ECON | [address] | | | | | [place] | | | | | [address] | | + + + + + Care Team Providers + +------+ + | Care Relay Operator Name | Role | Phone | + +------+ + | Tuan Chan MD | PCP | | + +------+ + Reason for Visit + + + | Reason | Comments | + + + | Pre-op evaluation | | + + + AUTH/CERT +--------+--------+ [...] | | | | | | | [facility] | | | | | | | [address] | | | | | | | [facility] | | | | | | | Hospital | | | | | | | [place], [place] | | | | | | | [address] | | | | | | | Phone: | | | | | | | [phone] | | | | | | | Fax: | | | | | | | [phone] | +--------+--------+ + + + + Encounter Details +--------+---------+ + + + | Date | Type | Department | Care Team | Description | +--------+---------+ + + + | 05/09/ | Office | Preoperative | Steven, | Preop Examination | | 2008 | Visit | Medicine Clinic at | [facility] | (Primary Dx); | | | | [facility] 4th Floor [address] | | Long-Term (Current) | | | | [address] | | Use of | | | | Mailcode: CH4S | | Anticoagulants | | | | [facility] | | | | | | and Healing, | | | | | | Building [facility] Floor | | | | | | [place], [place] | | | | | | [address] | | | | | | [phone] | | | +--------+---------+ + + + [...] | Blood Pressure | 137/63 | 05/09/2008 3:36 PM | | | | | PST | | + + + + + | Pulse | 60 | 05/09/2008 3:36 PM | | | | | PST | | + + + + + | Temperature | 36.7 C (98.1 F) | 05/09/2008 3:36 PM | | | | | PST | | + + + + + | Respiratory Rate | 16 | 05/09/2008 3:36 PM | | | | | PST | | + + + + + | Oxygen Saturation | 96% | 05/09/2008 3:36 PM | | | | | PST | | + + + + + | Inhaled Oxygen | - | - | | | Concentration | | | | + + + + + | Weight | 91.6 kg (202 lb) | 05/09/2008 3:36 PM | | | | | PST | | + + + + + | Height | 161.3 cm (5' 3.5") | 05/09/2008 3:36 PM | | | | | PST | | + + + + + | Body Mass Index | 35.22 | 05/09/2008 3:36 PM | | | | | PST | | + + + + + documented in this encounter Progress Notes Carol Harris - 05/09/2008 5:44 PM PSTSee Scanned H&P. documented in this e ncounter Plan of Treatment Not on filedocumented as of this encounter Procedures + +--------+ + + + | Procedure Name | Priori | Date/Time | Associated Diagnosis | Comments | | | ty | | | | + +--------+ + + + | INR | Routin | 05/09/2008 | Long-Term | Results for this | | | e | 4:19 PM | (Current) Use of | procedure are in the | | | | PST | Anticoagulants | results section. | + +--------+ + + + | TYPE AND SCREEN | Routin | 05/09/2008 | Preop Examination | Results for this | | | e | 4:18 PM | | procedure are in the | | | | PST | | results section. | + +--------+ + + + | BASIC METABOLIC SET | Routin | 05/09/2008 | Preop Examination | Results for this | | (NA, K, CL, TCO2, | e | 4:17 PM | | procedure are in the | | BUN, CR, GLU, CA) | | PST | | results section. | + +--------+ + + + | CBC ONLY | Routin | 05/09/2008 | Preop Examination | Results for this | | | e | 4:17 PM | | procedure are in the | | | | PST | | results section. | + +--------+ + + + documented in this encounter Results INR (05/09/2008 4:19 PM PST) + + + + + + | Component | Value | Ref Range | Performed | Pathologist | | | | | At | Signature | + + + + + + | INR | 1.00Comment: | 0.90 - 1.20 INR | [facility] | | | | INR Therapeutic ranges | | DEPARTMENT | | | | for full | | OF | | | | anticoagulation: | | PATHOLOGY | | | | INR for Venous | | | | | | Thromboembolism | | | | | | (2.0-3.0) | | | | | | INR INR for most | | | | [...] | + + + + + | [facility] DEPARTMENT OF | [address] | [place] [address] | | | PATHOLOGY | [address] | | | + + + + + | [facility] DEPARTMENT OF | [facility] | [place] [address] | | | PATHOLOGY | [address] | | | + + + + + TYPE AND SCREEN (05/09/2008 4:18 PM PST) + + + + + + | Component | Value | Ref Range | Performed | Pathologist | | | | | At | Signature | + + + + + + | ABO GROUP | O | | [facility] | | | | | | DEPARTMENT | | | | | | OF | | | | | | PATHOLOGY | | + + + + + + | RH TYPE | Positive | | [facility] | | | | | | DEPARTMENT | | | | | | OF | | | | | | PATHOLOGY | | + + + + + + | Antibody | Negative | | [facility] | | | Screen | | | DEPARTMENT | | | [...] | + + + + + | [facility] DEPARTMENT OF | [address] | [place] [address] | | | PATHOLOGY | [address] | | | + + + + + | [facility] DEPARTMENT OF | [address] [facility] | [place] [address] | | | PATHOLOGY | [address] | | | + + + + + BASIC METABOLIC SET (NA, K, CL, TCO2, BUN, CR, GLU, CA) (05/09/2008 4:17 PM PST) + +---------+ + + + [...] +---------+ + + + | CREATININE | 0.88 | 0.60 - 1.10 | [facility] | [...] +---------+ + + + | POTASSIUM, | 3.9 | 3.4 - 5.0 | [facility] | [...] + + | TOTAL CO2, | 30 | 23 - 31 mmol/L | [facility] | | | PLASMA | | | DEPARTMENT | | | (LAB) | | | OF | | | | | | PATHOLOGY | | + +---------+ + + + | CALCIUM, | 8.6 | 8.6 - 10.2 | [facility] | [...] Performed At | + + + | [id number] Estimated GFR > 60 mL/min/1.73 sq m if non- | [facility] | | Nepalese [id number] Estimated GFR > 60 mL/min/1.73 sq m if | DEPARTMENT OF | | [place] GFR is estimated using the MDRD equation recommended by | PATHOLOGY | | the National Kidney Disease Education Program. Estimated GFR | | | Interpretive Information: <60 mL/min/1.73 sq m Chronic Kidney | | | Disease <15 mL/mon/1.73 sq m Kidney Failure Estimated GFR | | | greater than 60mL/min/1.73 is of limited clinical Value. The MDRD | | | equation is not valid in the following situations: - Patients under | | | 18 years of age - Severe malnutrition or obesity - Vegetarian diet | | | - Rapidly changing kidney function | | + + + + + + + + | Performing | Address | City/State/Zipcode | Phone Number | | Organization | | | | + + + + + | [facility] DEPARTMENT OF | [address] | [place] [address] | | | PATHOLOGY | [address] | | | + + + + + | [facility] DEPARTMENT OF | [facility] [address] | [place] [address] | | | PATHOLOGY | [address] | | | + + + + + CBC ONLY (05/09/2008 4:17 PM PST) + +-------+ + + + | Component | Value | Ref Range | Performed | Pathologist | | | | | At | Signature | + +-------+ + + + | WHITE CELL | 7.8 | 4.4 - 11.0 K/cu | [facility] | | | COUNT | | mm | DEPARTMENT | | | | | | OF | | | | | | PATHOLOGY | | + +-------+ + + + | RED CELL | 4.08 | 4.00 - 5.20 | [facility] | | | COUNT | | M/cu mm | DEPARTMENT | | | | | | OF | | | | | | PATHOLOGY | | + +-------+ + + + | HEMOGLOBIN | 12.9 | 12.0 - 16.0 | [facility] | | | | | g/dL | DEPARTMENT | | | | | | OF | | | | | | PATHOLOGY | | + +-------+ + + + | HEMATOCRIT | 37.4 | 36.0 - 46.0 % | [facility] | | | | | | DEPARTMENT | | | | | | OF | | | | | | PATHOLOGY | | + +-------+ + + + | MCV | 91.6 | 80.0 - 96.0 fL | [facility] | | | | | | DEPARTMENT | | | | | | OF | | | | | | PATHOLOGY | | + +-------+ + + + | MCHC | 34.6 [...] +-------+ + + + | PLATELET | 219 | 150 - 400 K/cu | [facility] [...] | + + + + + | [facility] DEPARTMENT OF | [address] | [place] [address] | | | PATHOLOGY | [address] | | | + + + + + | [facility] DEPARTMENT OF | [address] [facility] | [place] [address] | | | PATHOLOGY | [address] | | | + + + + + documented in this encounter Visit Diagnoses + + | Diagnosis | + + | Preop examination - Primary Preoperative examination, unspecified | + + | Long-term (current) use of anticoagulants Encounter for long-term (current) use of | | anticoagulants | + + documented in this encounter
--- OUTSIDE RECORDS SUMMARY | ~2019-03-03 | XMS | Encounter Summary ---
Demographics + + + | Address | [address] | | | [place] [address] | + + + | Home Phone [...] [place] | | | | | [address] | | + + + + + Care Team Providers + +------+ + | Care Finished Yarn Examiner Name | Role | Phone | [...] | | | | Mailcode: CH10U | [place], [place] | | | | | [facility] | [address] | | | | | and Healing, | [phone] | | | | | | | | | | | Floor [place], [place] | | | | | | [address] | | | | | | [phone] | | | +--------+ + + + [...]
--- OUTSIDE RECORDS SUMMARY | ~2019-03-03 | XMS | Encounter Summary ---
Demographics + + + | Address | BAD ADDRESS | | | [place] [address] | + + + | Home Phone | | + + + | Preferred Language | Unknown | + + + | Marital Status | | + + + | Restoration Affiliation | 1077 | + + + | Race | Unknown | + + + | Ethnic Group | Unknown | + + + Author + + + | Author | [facility] | | | and [place] | + + + | Organization | [facility] | | | and [...] | | | | | [place] [address] | | + + + + + | Najma Krishnamurthy | ECON | Unknown | | + + + + + | Hector Mack | ECON | [address] | | | | | [place] | | | | | [address] | | + + + + + | Najma Sanches | ECON | Unknown | | + + + + + Care Team Providers + +------+ + | Care Fish Icer Name | Role | Phone | + +------+ + PCP | Unavailable | + +------+ + Encounter Details +--------+ + + + + | Date | Type | Department | Care Team | Description | +--------+ + + + + | 10/04/ | Hospital | [facility] | Papi Zavala MD | | | 1993 - | Encounter | [facility] | [address] | | | | | [address]IC [address] | [place] | | | 10/06/ | | Zaki Vidal, | [phone] | | | 1993 | | [place] | | | | | | [phone] | | | +--------+ + + + [...]
--- OUTSIDE RECORDS SUMMARY | ~2019-03-03 | XMS | Encounter Summary ---
Demographics + + + | Address | [address] | | | [place] [address] | + + + | Home Phone [...] + + + | Author | [facility] | + + + | Organization | [facility] | + + + | Address | Unknown | + + + | Phone | Unavailable | + + + Support + + + + + | Name | Relationship | Address | Phone | + + + + + | Hector Mack | ECON | [address] | | | | | [place] | | | | | [address] | | + + + + + Care Team Providers + +------+ + | Care Radar Mechanic Name | Role | Phone | [...] | | Panniculitis | [address] | | | | | Procedures | [address] | [address] | | | | | CONSULT TO | [place], [place] | Mailcode: | | | | | [place] | [address] | [facility] | | | | | SKIN ABD [place] | | for Health | | | | | REDUCTION | | and Healing, | | | | | OF LARGE | | Building 1, | | | | | BREAST | | 5th Floor | | | | | Procedure to | | [place], [place] | | | | | be | | [address] | | | | | performed: | | Phone: | | | | | breast | | [phone] | | | | | reduction | [...] | | | | | | | ([address]) and | | | | | | | Reduction of | | | | | | | large | | | | | | | breast | | | | | | | ([address]) | | | +--------+--------+ + + + + Encounter Details +--------+---------+ + + + | Date | Type | Department | Care Team | Description | +--------+---------+ + + + | 02/18/ | Office | Plastic and | Gia Amin, | Panniculitis | | 2006 | Visit | Reconstructive | MD [address] | (Primary Dx) | | | | Surgery at [facility] [address] | [place], [place] | | | | | [address] | [address] | | | | | Mailcode: [facility] | [phone] | | | | | [facility] | | | | | | and Healing, | | | | | | Building 1, 5th | | | | | | Floor [place], [place] | | | | | | [address] | | | | | | [phone] | | | +--------+---------+ + + + [...] 18 years ago Occupation: unemployed, lives in [place] Family History Problem Relation Heart Mother Diabetes [...] per side. Plan: --Patient will followup with professor of genetics, who will re-evaluate her rash prior to proceedi ng with breast surgery. Requested that derm forward their note to us. --Our personnel scheduler will provide the patient with a key [...]
--- OUTSIDE RECORDS SUMMARY | ~2019-03-03 | XMS | Encounter Summary ---
Demographics + + + | Address | [address] | | | [place] [address] | + + + | Home Phone | | + + + | Preferred Language | Unknown | + + + | Marital Status | | + + + | Cheondoism Affiliation | PRO | + + + | Race | White | + + + | Ethnic Group | Not or | + + + Author + + + | Author | [facility] | + + + | Organization | [facility] | + + + | Address | Unknown | + + + | Phone | Unavailable | + + + Support + + + + + | Name | Relationship | Address | Phone | + + + + + | Hector Mack | ECON | [address] | | | | | [place] | | | | | [address] | | + + + + + Care Team Providers + +------+ + | Care Children'S Lunchroom Supervisor Name | Role | Phone | [...] | | | | | | | [place], [place] | | | | | | | [address] | | | | | | | Phone: | | | | | | | [phone] | | | | | | | Fax: | | | | | | | [phone] | +--------+--------+ + + + + Encounter Details +--------+---------+ + + + | Date | Type | Department | Care Team | Description | +--------+---------+ + + + | 05/09/ | Office | Plastic and | Resident, Pls | Panniculitis | | 2008 | Visit | Reconstructive | [address] | (Primary Dx) | | | | Surgery at 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
--- OUTSIDE RECORDS SUMMARY | ~2019-03-03 | XMS | Encounter Summary ---
Demographics + + + | Address | [address] | | | [place] [address] | + + + | Home Phone | | + + + | Preferred Language | Unknown | + + + | Marital Status | | + + + | Lutheran Affiliation | PRO | + + + [...] [place] | | | | | [address] | | + + + + + Care Team Providers + +------+ + | Care Managing Partner [employer] Name | Role | Phone | + [...] Dx) | | 2006 | Visit | [place] [address] | | | | | | [place] Mailcode: [facility] | | | | | | [facility] | | | | | | and Healing, | | | | | | Building 1, 6th | | | | | | Floor [place], [place] | | | | | | [address] | | | | | | [phone] | | | +--------+---------+ + + + [...] Performed At | + + + | [id number] Estimated GFR = 60 mL/min/1.73 sq m if non- | [facility] | | [id number] Estimated GFR > 60 mL/min/1.73 sq m [...] | + + + + + | [facility] DEPARTMENT OF | [address] | [place] [address] | | | PATHOLOGY | [address] | | | + + + + + | [facility] DEPARTMENT OF | [address] | [place] [address] | | | PATHOLOGY | [address] [...] | + + + + + | [facility] | [address] [facility] [address] | [place] [address] | | | PATHOLOGY | [address] | | | + + + + + | [facility] | [address] [facility] | [place] [address] | | | PATHOLOGY | [address] | | | + + + + + documented in this encounter Visit Diagnoses + + | Diagnosis | + + | Obesity - Primary Obesity, unspecified | + + documented in this encounter
--- OUTSIDE RECORDS SUMMARY | ~2019-03-03 | XMS | Encounter Summary ---
Demographics + + + | Address | [address] | | | [place] [address] | + + + | Home Phone | | + + + | Preferred Language | Unknown | + + + | Marital Status | | + + + | Spiritism Affiliation | PRO | + + + | Race | White | + + + | Ethnic Group | Not or | + + + Author + + + | Author | [facility] | + + + | Organization | [facility] | + + + | Address | Unknown | + + + | Phone | Unavailable | + + + Support + + + + + | Name | Relationship | Address | Phone | + + + + + | Hector Mack | ECON | [address] | | | | | [place] | | | | | [address] | | + + + + + Care Team Providers + +------+ + | Care Pot Firer Name | Role | Phone | + [...] [facility] | | | | | | [facility] | | | | | | and Healing, | | | | | | Building 1, 6th | | | | | | Floor [place], [place] | | | | | | [address] | | | | | | [phone] | | | +--------+---------+ + + + [...] The next will be in 2 m [facility] time. documented in this encounter Plan of Treatment Not on filedocumented as of this encounter Visit Diagnoses + + | Diagnosis | + + | Achalasia Achalasia and cardiospasm | + + | Obesity Obesity, unspecified | + + documented in this encounter
--- OUTSIDE RECORDS SUMMARY | ~2019-03-03 | XMS | Encounter Summary ---
Demographics + + + | Address | BAD ADDRESS | | | [place] [address] | + + + | Home Phone | | + + + | Preferred Language | Unknown | + + + | Marital Status | | + + + | Mormon Affiliation | 1077 | + + + | Race | Unknown | + + + | Ethnic Group | Unknown | + + + Author + + + | Author | [facility] | | | and [place] | + + + | Organization | [facility] | | | and [...] | | | | | [place] [address] | | + + + + + | Najma Krishnamurthy | ECON | Unknown | | + + + + + | Hector Mack | ECON | [address] | | | | | [place] | | | | | [address] | | + + + + + | Najma Sanches | ECON | Unknown | | + + + + + Care Team Providers + +------+ + | Care Log Feeder Name | Role | Phone | + +------+ + PCP | Unavailable | + +------+ + Encounter Details +--------+ + + + + | Date | Type | Department | Care Team | Description | +--------+ + + + + | 01/06/ | Hospital | [facility] | | | | 1991 | Encounter | MED CTR XRAY [address] | | | | | | [address] | | | | | | [place] [address] | | | | | | [phone] | | | +--------+ + + + [...]
--- OUTSIDE RECORDS SUMMARY | ~2019-03-03 | XMS | Encounter Summary ---
Demographics + + + | Address | BAD ADDRESS | | | [place] [address] | + + + | Home Phone | | + + + | Preferred Language | Unknown | + + + | Marital Status | | + + + | Catholic Affiliation | 1077 | + + + | Race | Unknown | + + + | Ethnic Group | Unknown | + + + Author + + + | Author | [facility] | | | and [place] | + + + | Organization | [facility] | | | and [place] | + + + | Address | Unknown | + + + | Phone | Unavailable | + + + Support + + + + + | Name | Relationship | Address | Phone | + + + + + | Hector Mack | ECON | [address] | | | | | [place] [address] | | + + + + + | Najma Krishnamurthy | ECON | Unknown | | + + + + + | Hector Mack | ECON | [address] | | | | | [place] | | | | | [address] | | + + + + + | Najma Sanches | ECON | Unknown | | + + + + + Care Team Providers + +------+ + | Care Client Support Manager Name | Role | Phone | + +------+ + PCP | Unavailable | + +------+ + Encounter Details +--------+ + + + + | Date | Type | Department | Care Team | Description | +--------+ + + + + | 07/15/ | Hospital | [facility] | Rina Diaz MD | | | 2003 - | Encounter | [facility] | [address] | | | | | INTENSIVE CARE UNIT | [place] [address] | | | 07/16/ | | [address] | [phone] | | | 2003 | | [place], [place] | | | | | | [address] | | | | | | [phone] | | | +--------+ + + + [...]
--- OUTSIDE RECORDS SUMMARY | ~2019-03-03 | XMS | Encounter Summary ---
Demographics + + + | Address | BAD ADDRESS | | | [place] [address] | + + + | Home Phone | | + + + | Preferred Language | Unknown | + + + | Marital Status | | + + + | Restorationist Affiliation | 1077 | + + + [...] | | | | | [place] [address] | | + + + + + | Najma Krishnamurthy | ECON | Unknown | | + + + + + | Hector Mack | ECON | [address] | | | | | [place] | | | | | [address] | | + + + + + | Najma Sanches | ECON | Unknown | | + + + + + Care Team Providers + +------+ + | Care Decorating Inspector Name | Role | Phone | + +------+ + PCP | Unavailable | + +------+ + Encounter Details +--------+ + + + + | Date | Type | Department | Care Team | Description | +--------+ + + + + | 07/25/ | Hospital | [facility] | | | | 1996 | Encounter | MED CTR EMERGENCY | | | | | | CENTER [address] | | | | | | [place] | | | | | | [address] | | | | | | [phone] | | | +--------+ + + + [...]
--- OUTSIDE RECORDS SUMMARY | ~2019-03-03 | XMS | Encounter Summary ---
Demographics + + + | Address | BAD ADDRESS | | | [place] [address] | + + + | Home Phone | | + + + | Preferred Language | Unknown | + + + | Marital Status | | + + + | Islam Affiliation | 1077 | + + + | Race | Unknown | + + + | Ethnic Group | Unknown | + + + Author + + + | Author | [facility] | | | and [place] | + + + | Organization | [facility] | | | and [place] | + + + | Address | Unknown | + + + | Phone | Unavailable | + + + Support + + + + + | Name | Relationship | Address | Phone | + + + + + | Hector Blankenship | ECON | [address] | | | | | [place] [address] | | + + + + + | Najma Krishnamurthy | ECON | Unknown | | + + + + + | Hector Blankenship | ECON | [address] | | | | | [place] | | | | | [address] | | + + + + + | Najma Sanches | ECON | Unknown | | + + + + + Care Team Providers + +------+ + | Care Bottle Capping Machine Operator Name | Role | Phone | + +------+ + | Tuan Chan MD | PCP | | + +------+ + Reason for Visit + + + | Reason | Comments | + + + | Extremity Weakness | Rt | + + + Encounter Details +--------+ + + + + | Date | Type | Department | Care Team | Description | +--------+ + + + + | 05/18/ | Hospital | [facility] | Oralia Nevarez | Hypokalemia (Primary | | 2018 - | Encounter | HOSPITAL MED SURG | [address] | Dx); Right hand | | | | [address] | [address] | weakness; Infarction | | 05/22/ | | [place], [place] | [place] [address] | of left basal | | 2018 | | [id number] | [phone] | ganglia (HCC) | | | | [phone] | | | +--------+ + + + [...] + + + | Blood Pressure | 119/56 | 05/22/2018 11:50 AM | | | | | PST | | + + + + + | Pulse | 55 | 05/22/2018 11:50 AM | | | | | PST | | + + + + + | Temperature | 37.1 C (98.7 F) | 05/22/2018 11:50 AM | | | | | PST | | + + + + + | Respiratory Rate | 14 | 05/22/2018 11:50 AM | | | | | PST | | + + + + + | Oxygen Saturation | 98% | 05/22/2018 11:50 AM | | | | | PST | | + + + + + | Inhaled Oxygen | - | - | | | Concentration | | | | + + + + + | Weight | 65.5 kg (144 lb 8 | 05/22/2018 4:00 AM | | | | oz) | PST | | + + + + + | Height | 149.9 cm (4' 11") | 05/18/2018 6:30 PM | | | | | PST | | + + + + + | Body Mass Index | 29.19 | 05/18/2018 6:30 PM | | | | | PST [...] documented as of this encounter Discharge Summaries Oralia Nevarez MD - 05/22/2018 10:46 AM PSTFormatting of this note might be differe nt from the original. DISCHARGE SUMMARY Germaine Blankenship : 1945 ADMISSION DATE AND TIME05/18/2018 15:14 DATE OF Service 05/22/2018 Pt. Name/Age/: Germaine Blankenship 72 y.o. 1945 Date of Admission: 05/18/2018 Date of Discharge: 05/22/2018 Admitting Physician: Oralia Nevarez MD PCP: Tuan Chan Discharging Physician: Oralia Nevarez Consultants: Teleneurologist Dr. Weinstein ([facility]) Primary Discharge Dx: Active Hospital Problems Diagnosis Date Noted POA *Infarction of left basal ganglia (HCC) [I63.9] 05/18/2018 Yes Receptive aphasia [R47.01] 05/20/2018 Yes Cognitive impairment [R41.89] 05/20/2018 Unknown Right hand weakness [R29.898] 05/18/2018 Yes Hypokalemia [E87.6] 06/12/2015 Yes 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 ( HCC) [I25.700] 06/12/2015 Yes Anemia [D64.9] 06/12/2015 Yes Procedures: none Reason for Admission (Brief): Germaine Blankenship is a right handed 72 y.o. female wit h past medical history of CAD s/p CABG x 4, cath 2015, HTN, nephrolithiasis, remote CVA with memory deficits, hx of ETOH abuse, history of gastric bypass who presented to the ED for ev aluation of right arm pain and weakness which started two days prior. Admitted for treatmen t of hypokalemia, UTI and subacute left basal ganglia infarction. Hospital Course, including Complications: # left basal ganglia infarction # Right lower arm and hand paresis, sensory deficit # cognitive impairment. Difficult to say how cognitively impaired patient was prior to this event, as she has had a stroke in past. Speech is fluent but receptive and conduction aphasia evident. Unclear how much is patient's baseline vs recent CVA vs remote CVA vs dementia (vascular or alzheimer's ). CT without contrast on admission showed a focal lucency of the left basal ganglia that l neftaliely corresponds with a completed infarct, but there was no comparison image available. She was not a candidate for TPA or endovascular intervention due to onset of deficit 2 days bef ore presentation. - echo done 05/19, report pending but preliminary report is no shunt, EF 50-55%. - bilateral carotid duplex US showed patent carotids, R vertebral artery retrograde. - CT angio done 05/20 showed no significant vascular occulusions, scattered mild plaques and no evidence of acute intracranial vascular abnormality. - PT/OT - Per daily evaluation, there has been some improvement in Germaine's naming and progr ess with ADLs as well as her left hand weakness. - telemetry while inpatient. Plan for 2 week event monitor as outpatient. - high intensity statin, ASA 81mg started on admission - Plan for OT, PT and speech therapy at SNF after discharge. # UTI. Culture grew > 100,000 E. Coli, sensitive to all but bactrim. She was receiving CTX, but has been transitioned to Cefdinir PO, plan for 7 day course. # hypokalemia - resolved. K 2.4 on admission. May be chronic as she was on outpatient suppl ementation at some point. K normalized after IV and PO repletion and has remained stable on repeat labs. Continue MICROFICHE DUPLICATOR supplementation at 10 mEq per day. 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 Biop sied at [facility] in Jan 2018. Reviewed by dermatopathologist. Differential based on path findings is Estevan's disease, Ninfa-Ninfa disease, Darier disease and eczematous process. Improvin g with emollient lotion QID. # CAD. # HTN Continue beta luís, ACEi, ASA, statin. # normocytic anemia. Unclear chronicity, prior labs indicate H/H similar to current - iron studies show mild iron deficiency anemia - FOBT was negative for occult blood - PO iron supplementation with ferrous sulfate 325mg daily #Social. Patient and her partner Hector appear to be unable to care for each other. She was cognitively impaired on arrival and very dirty, smelling of urine. They report living [facility] trailer in [place] for the winter. APS report being made, however she is going to a s afe living situation at [facility] in [place]. FEN:(albumin <= 3.2 g/dL) VTE Prophylxis low molecular weight heparin Code Status: Full Code Anticipated Date of Discharge: 05/22/[address] conditions, weather. Anticipated Discharge needs: PT, OT and speech therapy. Post-Hospital Care: Group Home Facility in [place]. She has been accepted by [facility]. Review of Systems Reason unable to perform ROS: receptive aphasia. Objective: Vital Signs: Vitals Current Average / Min / Max Temp 36.3 C (97.4 F) Temp Min: 36.3 C (97.4 F) Max: 37.1 C (98.7 F) BP 132/56 BP Min: 126/72 Max: 163/95 HR 51 Pulse Av.2 Min: 51 Max: 65 RR 10 Resp Av.3 Min: 10 Max: 23 Sats 95 % SpO2 Min: 94 % Max: 98 % Weight 65.5 kg (144 lb 8 oz) Admit: 78 kg (172 lb) BMI Body mass index is 29.19 kg/m. Intake/Output Summary (Last 24 hours) at 05/22/18 1057 Last data filed at 05/22/18 0625 Gross per 24 hour Intake 1220 ml Output 1250 ml Net -30 ml Physical Exam Constitutional: No distress. Chronically ill appearing female. HENT: Head: Normocephalic and atraumatic. Eyes: Pupils are equal, round, and reactive to light. Conjunctivae and EOM are normal. Cardiovascular: Normal rate and regular rhythm. No murmur heard. Pulmonary/Chest: Effort normal and breath sounds normal. No respiratory distress. She has n o wheezes. She has no rales. Abdominal: Soft. Bowel sounds are normal. She exhibits no distension. There is no tendernes s. There is no rebound. Neurological: She is alert. 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 Can partly make a fist with right and extrinsic hand muscle strength 3/5. Able to extend and flex R wrist with 4+/5 strength. Intact motor f unction at right elbow, 5/5 biceps and triceps strength. Sensitive to deep pressure in righ t hand and today, light touch sensation is intact. Oriented to person but not place or seas on. Speech is fluent but with some conduction and receptive aphasia. Repetition impaired. Skin: Skin is warm and dry. Rash (hyperkeratotic, excoriated rash over upper chest and uppe r back) noted. Psychiatric: Pleasant. Results for orders placed or performed during the hospital encounter of 05/18/18 Culture, Urine Result Value Ref Range Culture >100,000 CFU/ml Escherichia coli Susceptibility Escherichia coli - (no method available) Amikacin <=16 Sensitive ug/mL Amoxicillin + Clavulanate <=8/4 Sensitive ug/mL Ampicillin + Sulbactam <=8/4 Sensitive ug/mL Ampicillin <=8 Sensitive ug/mL Cefazolin <=8 Sensitive ug/mL Cefepime <=4 Sensitive ug/mL Cefotaxime <=2 Sensitive ug/mL Ceftazidime <=1 Sensitive ug/mL Ceftriaxone <=8 Sensitive ug/mL Cefuroxime <=4 Sensitive ug/mL Ciprofloxacin >4 Resistant ug/mL Ertapenem <=2 Sensitive ug/mL Gentamicin <=4 Sensitive ug/mL Imipenem <=1 Sensitive ug/mL Levofloxacin >4 Resistant ug/mL Meropenem <=1 Sensitive ug/mL Nitrofurantoin <=32 Sensitive ug/mL Piperacillin + Tazobactam <=16 Sensitive ug/mL Tetracycline <=4 Sensitive ug/mL Ticarcillin + Clavulanic Acid <=16 Sensitive ug/mL Trimethoprim + Sulfamethoxazole Resistant ug/mL CBC with Differential Result Value Ref Range WBC 7.6 >4.5-<11.0 K/uL RBC 4.23 (L) 4.50 - 6.00 M/uL Hemoglobin 11.9 (L) >12.4-<15.7 g/dL Hematocrit 37.2 (L) >37.7-<47.0 % MCV 87.9 78.0 - 98.0 fL MCH 28.1 26.0 - 32.0 pg MCHC 32.0 31.0 - 36.0 g/dL RDW-CV 14.6 12.0 - 15.0 % Platelet Count 196 >140-<440 K/uL MPV 11.3 fL % Neutrophils 67.7 37.0 - 80.0 % % Lymphocytes 24.3 10.0 - 50.0 % % Monocytes 6.1 0.0 - 12.0 % % Eosinophils 1.1 0.0 - 7.0 % % Basophils 0.5 0.0 - 2.5 % Absolute Neutrophils 5.15 1.67 - 8.80 K/uL Absolute Lymphocytes 1.85 0.60 - 3.40 K/uL Absolute Monocytes 0.46 0.00 - 4.00 K/uL Absolute Eosinophils 0.08 0.00 - 2.50 K/uL Absolute Basophils 0.04 0.00 - 0.20 K/uL Comprehensive Metabolic Panel Result Value Ref Range Na 146 (H) 135 - 144 mmol/L K 2.4 (LL) >3.3-<5.8 mmol/L Cl 106 >95-<108 mmol/L CO2 31 23 - 34 mmol/L Anion Gap 9 7 - 16 mmol/L Glucose 118 (H) 70 - 110 mg/dL BUN 21 5 - 26 mg/dL Creatinine 0.98 >0.60-<1.30 mg/dL eGFR if not 56 (L) >=60 mL/min/1.73m2 Ca 8.2 (L) 8.3 - 10.0 mg/dL Albumin 3.1 3.0 - 4.5 g/dL Bilirubin Total 0.4 0.0 - 1.0 mg/dL Total Protein 6.6 6.6 - 8.5 g/dL AST 22 16 - 38 U/L ALT 14 (L) 18 - 63 U/L Alkaline Phosphatase 74 50 - 136 U/L Globulin 3.5 1.5 - 3.5 g/dL Albumin/Globulin Ratio 0.9 (L) 1.0 - 2.5 BUN/Creatinine Ratio 21.4 7.0 - 24.0 Lipase Result Value Ref Range Lipase 98 73 - 393 U/L Lactic Acid Result Value Ref Range Lactate 1.7 >0.0-<2.0 mmol/L Urinalysis With Microscopic Result Value Ref Range Color Yellow Straw, Yellow, Light Yellow Clarity Clear Clear pH, Urine 5.5 5.0 - 8.0 Specific [place] 1.025 1.005 - 1.030 Protein, Urine 30 mg/dL (A) Negative Blood, Urine Negative Negative, Trace Glucose, Urine Negative Negative Ketones, Urine Negative Negative Bilirubin, Urine Negative Negative Nitrite, Urine Negative Negative Leukocyte Esterase, Urine Trace (A) Negative Urobilinogen, Urine 2.0 E.U./dL (A) 0.2 E.U./dL, 1.0 E.U./dL WBC UA 6-10 (A) None Seen /HPF RBC UA 0-2 (A) None Seen /HPF SQUAMOUS EPITHELIAL UA Many (A) None Seen, Trace, Few /LPF BACTERIA UA 4+ (A) None Seen, Trace /HPF TSH Result Value Ref Range TSH 0.499 0.358 - 3.740 uIU/mL B Type Natriuretic Peptide Result Value Ref Range NT-proBNP 1,571 (H) 0 - 125 pg/mL Troponin I Result Value Ref Range Troponin I 0.030 0.000 - 0.090 ng/mL Ethanol Result Value Ref Range ALCOHOL, SERUM/PLASMA <3 0 - 3 mg/dL Drugs of Abuse, Screen, Urine Result Value Ref Range Barbiturates Screen, Urine Negative Negative Benzodiazepines Screen, Urine Negative Negative Cannabinoids Screen, Urine Presumptive Positive (A) Negative Cocaine Screen, Urine Negative Negative Methadone Screen, Urine Negative Negative Opiates Screen, Urine Negative Negative Phencyclidine Screen, Urine Negative Negative Methamphetamine Screen, Urine Negative Negative Amphetamine Screen, Urine Negative Negative Tricyclic Antidepressants Screen, Urine Negative Negative Oxycodone Screen, Urine Negative Negative Propoxyphene Screen, Urine Negative Negative Buprenorphine Screen, Urine Negative Negative Magnesium Result Value Ref Range Magnesium 1.8 1.8 - 2.4 mg/dL Basic Metabolic Panel Result Value Ref Range Na 145 (H) 135 - 144 mmol/L K 2.9 (L) >3.3-<5.8 mmol/L Cl 107 >95-<108 mmol/L CO2 28 23 - 34 mmol/L Anion Gap 10 7 - 16 mmol/L Glucose 89 70 - 110 mg/dL BUN 18 5 - 26 mg/dL Creatinine 0.76 >0.60-<1.30 mg/dL eGFR if not >60 >=60 mL/min/1.73m2 Ca 7.9 (L) 8.3 - 10.0 mg/dL BUN/Creatinine Ratio 23.7 7.0 - 24.0 CBC no Differential Result Value Ref Range WBC 7.0 >4.5-<11.0 K/uL RBC 4.11 (L) 4.50 - 6.00 M/uL Hemoglobin 11.4 (L) >12.4-<15.7 g/dL Hematocrit 35.8 (L) >37.7-<47.0 % MCV 87.1 78.0 - 98.0 fL MCH 27.7 26.0 - 32.0 pg MCHC 31.8 31.0 - 36.0 g/dL RDW-CV 14.5 12.0 - 15.0 % Platelet Count 175 >140-<440 K/uL MPV 11.2 fL CBC no Differential Result Value Ref Range WBC 6.2 >4.5-<11.0 K/uL RBC 3.98 (L) 4.50 - 6.00 M/uL Hemoglobin 10.9 (L) >12.4-<15.7 g/dL Hematocrit 34.7 (L) >37.7-<47.0 % MCV 87.2 78.0 - 98.0 fL MCH 27.4 26.0 - 32.0 pg MCHC 31.4 31.0 - 36.0 g/dL RDW-CV 14.4 12.0 - 15.0 % Platelet Count 163 >140-<440 K/uL MPV 11.1 fL Basic Metabolic Panel Result Value Ref Range Na 141 135 - 144 mmol/L K 3.6 >3.3-<5.8 mmol/L Cl 106 >95-<108 mmol/L CO2 26 23 - 34 mmol/L Anion Gap 9 7 - 16 mmol/L Glucose 85 70 - 110 mg/dL BUN 14 5 - 26 mg/dL Creatinine 0.82 >0.60-<1.30 mg/dL eGFR if not >60 >=60 mL/min/1.73m2 Ca 7.7 (L) 8.3 - 10.0 mg/dL BUN/Creatinine Ratio 17.1 7.0 - 24.0 Magnesium Result Value Ref Range Magnesium 1.9 1.8 - 2.4 mg/dL Iron and Iron Binding Capacity Result Value Ref Range Iron 42 (L) 50 - 170 ug/dL TIBC 315 250 - 450 ug/dL Iron Saturation 13 (L) 15 - 50 % Ferritin Result Value Ref Range FERRITIN 11 5 - 93 ng/mL Transferrin Result Value Ref Range Transferrin 264.60 192 - 382 Comprehensive Metabolic Panel Result Value Ref Range Na 142 135 - 144 mmol/L K 3.6 >3.3-<5.8 mmol/L Cl 106 >95-<108 mmol/L CO2 26 23 - 34 mmol/L Anion Gap 10 7 - 16 mmol/L Glucose 82 70 - 110 mg/dL BUN 13 5 - 26 mg/dL Creatinine 0.76 >0.60-<1.30 mg/dL eGFR if not >60 >=60 mL/min/1.73m2 Ca 7.8 (L) 8.3 - 10.0 mg/dL Albumin 2.7 (L) 3.0 - 4.5 g/dL Bilirubin Total 0.3 0.0 - 1.0 mg/dL Total Protein 5.8 (L) 6.6 - 8.5 g/dL AST 19 16 - 38 U/L ALT 10 (L) 18 - 63 U/L Alkaline Phosphatase 59 50 - 136 U/L Globulin 3.1 1.5 - 3.5 g/dL Albumin/Globulin Ratio 0.9 (L) 1.0 - 2.5 BUN/Creatinine Ratio 17.1 7.0 - 24.0 Calcium, Ionized Result Value Ref Range pH 7.52 (H) 7.31 - 7.41 Calcium, Ionized 1.06 (L) 1.11 - 1.30 mmol/L CBC no Differential Result Value Ref Range WBC 8.7 >4.5-<11.0 K/uL RBC 3.89 (L) 4.50 - 6.00 M/uL Hemoglobin 10.8 (L) >12.4-<15.7 g/dL Hematocrit 33.9 (L) >37.7-<47.0 % MCV 87.1 78.0 - 98.0 fL MCH 27.8 26.0 - 32.0 pg MCHC 31.9 31.0 - 36.0 g/dL RDW-CV 14.6 12.0 - 15.0 % Platelet Count 187 >140-<440 K/uL MPV 11.2 fL POCT Occ Bld Stl not Colorectal Neoplasm Result Value Ref Range Occult Blood x1, Stool, POC Negative Negative Occult Blood x2, Stool, POC Negative Occult Blood x3, Stool, POC Negative Occult Blood QC Result Acceptable Card Lot # Card Expiration Date Developer Lot # Developer Exp. Date Ct Angiogram Head Neck Result Date: 05/20/2018 [place] [address] NAME: GERMAINE BARBOUR DATE: 05/20/2018 : 0 1945 PT GENDER: F ROOM: IN Physician: ORALIA NEVAREZ PID3: [id number] CC TO: MR#: PROCEDURE: CTA BRAIN AND NECK WITH CONTRAST INDICATIONS: remote stroke , retrograde flow in R vertebral artery seen on carotid US. COMPARISON: Ultrasound 05/19/2018 TECHNIQUE: Images were obtained through the neck from the arch to the skull base and throug h the brain from the skull base during the administration of 100 cc nonionic intravenous con trast.Contrast was administered for the evaluation of possible infectious, inflammatory or n eoplastic process. Multiplanar and MIP reformations were obtained. One or more of the follow ing dose lowering techniques were utilized: automated exposure control, adjustment of the mA and/or kV according to patient size, or use of iterative reconstruction. FINDINGS: CT BRAIN ANGIOGRAPHY INTRACRANIAL ARTERIES: No aneurysm, vascular malformation, significant stenosis or vascular occlusion. origin of the right posterior cerebral artery incidentally not ed. CT NECK ANGIOGRAPHY GREAT VESSEL ARTERIOGRAPHY: There is conventional branching anatomy off the aortic arch. No hemodynamically significant stenosis or aneurysmal dilatation. CAROT ID ARTERIES: No hemodynamically significant stenosis. Mild plaque. No evidence of plaque ulc eration. VERTEBRAL ARTERIES: No significant stenosis or evidence of dissection. SOFT TISSUES : Enlarged right thyroid gland with multiple nodules. BONES: No concerning lytic or blastic bony lesions. There is less than 50% stenosis of the right internal carotid artery based on the NASCET criteria. There is less than 50% stenosis of the left internal carotid artery bas ed on the NASCET criteria. IMPRESSION: No acute intracranial vascular abnormality. Scattered atherosclerotic plaque without evidence of hemodynamically significant luminal narrowing. N o etiology for reversal of flow previously seen in the right vertebral artery. Enlarged mult inodular right thyroid gland. 1 :03 PM at workstation [id number] Pending study results on DC: Unresulted Labs and Imaging None Medications Reconciled upon Discharge are: Discharge Medications New Medications Details acetaminophen 325 mg tablet Take 2 tablets by mouth every 4 hours as needed for Pain (or fever >= 38.6 C (101.5 F)). aka: TYLENOL aspirin 81 mg chewable tablet Take 1 tablet by mouth Daily. atorvaSTATin 40 mg tablet Take 1 tablet by mouth nightly. aka: LIPITOR cefdinir 300 mg capsule Take 1 capsule by mouth 2 times daily for 2 days. Indications: UTI - Lower aka: OMNICEF ferrous sulfate 325 mg tablet Take 1 tablet by mouth daily (with breakfast). nicotine 14 mg/[address] 1 patch onto the skin Daily. aka: NICODERM nystatin powder Wash and dry under both breasts, apply nystatin powder under both breasts aka: MYCOSTATIN Changed Medications Details metoprolol tartrate 25 mg tablet Take 0.5 tablets by mouth 2 times daily. What changed: medication strength how much to take aka: LOPRESSOR Unchanged Medications Details clopidogrel 75 mg tablet Take 1 tablet by mouth Daily. aka: PLAVIX lisinopril 20 mg tablet Take 1 tablet by mouth Daily. aka: PRINIVIL, ZESTRIL potassium chloride 10 MEQ ER tablet Take 1 tablet by mouth Daily. aka: KLOR-CON Discontinued Medications metoprolol succinate 25 mg 24 hr tablet aka: TOPROL-XL morphine 30 MG tablet aka: MSIR oxyCODONE-acetaminophen 10-325 mg per tablet aka: PERCOCET Condition on Discharge: Stable Disposition: Group Home Facility Current Support: Family daughter Najma. Services Ordered: PT, OT, SENIOR SALES ADMINISTRATOR. See SNF transfer note for details. Follow-up Information [facility] medical assisting program director. Discharge Instructions Please continue: - physical therapy - occupational therapy - speech therapy. Consider outpatient event monitor for 2 weeks for workup for recent stroke. Time spent on Discharge and Coordination of post-hospital care: 60 minutes documented in t his encounter Discharge Instructions Instructions Oralia Nevarez MD - 05/21/2018 Please continue: - physical therapy - occupational therapy - speech therapy. Consider outpatient event monitor for 2 weeks for workup for recent stroke. documented in this encounter Medications at Time [...] tablet by | 30 | 0 | 02/22/20 | | | chewable tablet | mouth Daily. | tablet | | 19 | | + + + +---------+ + + | atorvaSTATin | Take 1 tablet by | 30 | 0 | //20 | | | (LIPITOR) 40 mg | mouth nightly. | tablet | | 19 | | | tablet | | | | | | + + + +---------+ + + | clopidogrel | Take 1 tablet by | 30 | 0 | /22/20 | | | (PLAVIX) 75 mg | [...] documented as of this encounter Progress Notes Trinidad Miranda, Health Training Technician - 05/21/2018 2:43 PM PSTTransport arrangements madrigal ve been finalized. Pharmacy for scripts have been finalized. Family has been notified. Queenie ctronically signed by Trinidad Miranda, Health Training Technician at 05/21/2018 2:44 PM PSTOralia Bhagat MD - 05/21/2018 1:18 PM PSTFormatting of this note might be different fr om the original. DAILY PROGRESS NOTE Germaine Blankenship : 1945 ADMISSION DATE AND TIME05/18/2018 15:14 DATE OF Service 05/21/2018 Hospital Day: 4 Inpatient Assessment & Plan ID Statement: Germaine Blankenship is a 72 y.o. female with past medical history of CAD s/p CABG x 4, cath 2016, HTN, nephrolithiasis, remote CVA with memory deficits, hx of ETOH a buse, history of gastric bypass who presented to the ED for evaluation of right arm pain and weakness which started two days prior. Multidisciplinary rounds were performed at bedside without family in attendance. Plan/Course by Problem: # left basal ganglia infarction # Right lower arm and hand paresis, sensory deficit # cognitive impairment. Difficult to say how cognitively impaired patient was prior to this event, as she has had a stroke in past. Speech is fluent but receptive and conduction aphasia evident. Unclear how much is patient's baseline vs recent CVA vs remote CVA vs dementia (vascular or alzheimer's ). CT without contrast on admission showed a focal lucency of the left basal ganglia that catalino lindsayely corresponds with a completed infarct, but there was no comparison image available. She was not a candidate for TPA or endovascular intervention due to onset of deficit 2 days bef ore presentation. - echo done 05/19, report pending but preliminary report is no shunt, EF 50-55%. - bilateral carotid duplex US showed patent carotids, R vertebral artery retrograde. - CT angio done 05/20 showed no significant vascular occulusions, scattered mild plaques and no evidence of acute intracranial vascular abnormality. - PT/OT - Per daily evaluation, there has been some improvement in Germaine's naming and progr ess with ADLs - telemetry while inpatient. Plan for 2 week event monitor as outpatient. - high intensity statin, ASA 81mg started on admission - Appreciate Taya, OT assistance with VA-SLUMS and cognitive eval once patient's cognitiv e status stabilizes. # UTI. Culture grew > 100,000 E. Coli - was receiving CTX, but has been transitioned to Cefdinir PO. # hypokalemia - resolved. K 2.4 on admission. May be chronic as she was on outpatient suppl ementation at some point. K normalized after IV and PO repletion and has remained stable on repeat labs. - no longer receiving supplementation - recheck in am. 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 Biop sied at [facility] in Jan 2018. Reviewed by dermatopathologist. Differential based on path findings is Pride's disease, Ninfa-Ninfa disease, Darier disease and eczematous process. - emollient lotion QID # CAD. # HTN Continue beta luís, ACEi, ASA, statin. # normocytic anemia. Unclear chronicity, prior labs indicate H/H similar to current - iron studies show mild iron deficiency anemia - FOBT was negative for occult blood - PO iron supplementation with ferrous sulfate 325mg daily FEN:(albumin <= 3.2 g/dL) VTE Prophylxis low molecular weight heparin Code Status: Full Code Anticipated Date of Discharge: 05/22/[address] conditions, weather. Anticipated Discharge needs: PT, OT and speech therapy. Post-Hospital Care: Group Home Facility in [place]. She has been accepted by [facility]. Subjective Germaine says she is doing well this morning, but was confused with her new nurse, saying she knows she had not met her before, but she has been really helpful. Germaine is pleasant and en joying her therapies. She is looking forward to daughter Najma's visit which will likely be tomorrow because of snowy roads. Review of Systems Unable to perform ROS: Mental acuity (limited ROS due to receptive aphasia) Neurological: Positive for dizziness and focal weakness (right hand and lower arm). Scheduled Meds: aspirin 81 mg Oral Daily atorvaSTATin 40 mg Oral Nightly cefdinir 300 mg Oral BID cefTRIAXone enoxaparin 40 mg Subcutaneous Daily ferrous sulfate 325 mg Oral Daily with breakfast lidocaine (PF) lisinopril 20 mg Oral Daily metoprolol tartrate 12.5 mg Oral BID nicotine 1 patch Transdermal Daily Pramoxine-Calamine 1 Application Topical 4x Daily Continuous Infusions: PRN Meds:.acetaminophen, aluminum & magnesium hydroxide-simethicone, calcium carbonate, doc usate sodium, ondansetron, polyethylene glycol, prochlorperazine Objective Vitals Current 24 Hour Average / Min / Max Temp 37.1 C (98.7 F) Temp Min: 36.6 C (97.9 F) Max: 37.1 C (98.7 F) BP 144/72 BP Min: 127/75 Max: 144/72 HR 56 Pulse Av.2 Min: 53 Max: 64 RR 21 Resp Av.2 Min: 15 Max: 21 Sats 95 % SpO2 Min: 92 % Max: 98 % Weight 65.2 kg (143 lb 11.8 oz) Admit: 78 kg (172 lb) BMI Body mass index is 29.03 kg/m. Physical Exam Constitutional: No distress. Chronically ill appearing female. HENT: Head: Normocephalic and atraumatic. Eyes: Pupils are equal, round, and reactive to light. Conjunctivae and EOM are normal. Cardiovascular: Normal rate and regular rhythm. No murmur heard. Pulmonary/Chest: Effort normal and breath sounds normal. No respiratory distress. She has n o wheezes. She has no rales. Abdominal: Soft. Bowel sounds are normal. She exhibits no distension. There is no tendernes s. There is no rebound. Neurological: She is alert. 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 Today can partly make a fist, but weaker than th e left. Minimal ability to extend R wrist. No finger abduction on the right. Some motor func tion at right elbow. Sensitive to deep pressure in right hand but not light touch. Orient[place] d to person but not place or season. Speech however is fluent but with some conduction and receptive aphasia. Repetition impaired. Skin: Skin is warm and dry. Rash (hyperkeratotic, excoriated rash over upper chest and uppe r back) noted. Psychiatric: Pleasant. No results found for this or any previous visit (from the past 24 hour(s)). Ct Angiogram Head Neck Result Date: 05/20/[address] [address] NAME: GERMAINE BARBOUR DATE: 05/20/2018 : 0 1945 PT GENDER: F ROOM: IN Physician: ORALIA NEVAREZ PID3: [id number] CC TO: MR#: PROCEDURE: CTA BRAIN AND NECK WITH CONTRAST INDICATIONS: remote stroke , retrograde flow in R vertebral artery seen on carotid US. COMPARISON: Ultrasound 05/19/2018 TECHNIQUE: Images were obtained through the neck from the arch to the skull base and throug h the brain from the skull base during the administration of 100 cc nonionic intravenous con trast.Contrast was administered for the evaluation of possible infectious, inflammatory or n eoplastic process. Multiplanar and MIP reformations were obtained. One or more of the follow ing dose lowering techniques were utilized: automated exposure control, adjustment of the mA and/or kV according to patient size, or use of iterative reconstruction. FINDINGS: CT BRAIN ANGIOGRAPHY INTRACRANIAL ARTERIES: No aneurysm, vascular malformation, significant stenosis or vascular occlusion. origin of the right posterior cerebral artery incidentally not ed. CT NECK ANGIOGRAPHY GREAT VESSEL ARTERIOGRAPHY: There is conventional branching anatomy off the aortic arch. No hemodynamically significant stenosis or aneurysmal dilatation. CAROT ID ARTERIES: No hemodynamically significant stenosis. Mild plaque. No evidence of plaque ulc eration. VERTEBRAL ARTERIES: No significant stenosis or evidence of dissection. SOFT TISSUES : Enlarged right thyroid gland with multiple nodules. BONES: No concerning lytic or blastic bony lesions. There is less than 50% stenosis of the right internal carotid artery based on the NASCET criteria. There is less than 50% stenosis of the left internal carotid artery bas ed on the NASCET criteria. IMPRESSION: No acute intracranial vascular abnormality. Scattered atherosclerotic plaque without evidence of hemodynamically significant luminal narrowing. N o etiology for reversal of flow previously seen in the right vertebral artery. Enlarged mult inodular right thyroid gland. 1 :03 PM at workstation [id number] Documentation assistance provided by Jolie Pimentel, medical student. I repeated all eleme nts of the history and physical and have edited all parts of the note to reflect my evaluati on. Electronically signed: Oralia Nevarez MD 05/21/2018 13:18 DATE OF SERVICE: 05/21/2018 rinidad Miranda, Health Training Technician - 05/20/2018 3:29 [facility] [place] [place] [facility] Germaine. Working on transport options. [facility] transport is working on transport for Friday by 11. rinidad Miranda, Health Unit Coordin ator - 05/20/2018 10:55 AM PSTSpoke with Najma Xiong-daughter. She has made preliminary arr angements for Germaine to be placed at [facility] in [place]. Will make phone contact with them today. Faxed referral notes to corrective therapist for review. El ectronically signed by Trinidad Miranda Health Training Technician at 05/20/2018 2:26 PM PSTAlexandria castrejon, Oralia Dove MD - 05/20/2018 10:37 AM PSTFormatting of this note might be different f rom the original. DAILY PROGRESS NOTE Germaine Blankenship : 1945 ADMISSION DATE AND TIME05/18/2018 15:14 DATE OF Service 05/20/2018 Hospital Day: 3 Inpatient Assessment & Plan ID Statement: Germaine Blankenship is a 72 y.o. female with past medical history of CAD s/p CABG x 4, cath 2016, HTN, nephrolithiasis, remote CVA with memory deficits, hx of ETOH a buse, history of gastric bypass who presents to the ED for evaluation of right arm pain and weakness which started two days ago. Multidisciplinary rounds were performed at bedside without family in attendance. Plan/Course by Problem: # left basal ganglia infarction # Right lower arm and hand paresis, sensory deficit # cognitive impairment. Difficult to say how cognitively impaired patient was prior to this event, as she has had a stroke in past. Speech is fluent but receptive aphasia evident. Unclear how much is patien t's baseline vs recent CVA vs remote CVA vs dementia (vascular or alzheimer's). - echo done 05/19, report pending but preliminary report is no shunt, EF 50-55%. - bilateral carotid duplex US showed patent carotids, R vertebral artery retrograde flow so follow up CTA head/neck is orderd. - PT/OT - telemetry. Plan for 2 week event monitor as outpatient. - high intensity statin, ASA 81mg started on admission - Appreciate Taya OT assistance with [facility] and cognitive eval once patient's cognitiv e status stabilizes. # UTI. Culture growing >100K cfu GNRs. - CTX 1g IV daily. - follow up urine culture, narrow abx # hypokalemia - resolved. K 2.4 on admission. May be chronic as she was on outpatient suppl ementation at some point. K normalized after IV and PO repletion . 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 biop sied at [facility] in Jan 2018. Reviewed by dermatopathologist. Differential based on path findings is Pride's disease, Ninfa-Ninfa disease, Darier disease and eczematous process. - emollient lotion QID # CAD. # HTN Continue beta luís, ACEi, ASA, statin. # normocytic anemia. Unclear chronicity. - iron studies, FOBT pending. FEN:(albumin <= 3.2 g/dL) VTE Prophylxis low molecular weight heparin Code Status: Full Code Anticipated Date of Discharge: 05/21/18 to swing bed vs SNF Anticipated Discharge needs: community resources, housing resources, CHW support. Post-Hospital Care: [facility] Facility vs [facility] depending on improvement in cognitive i mpairment. Subjective Germaine pulled out IV yesterday and it was left out and ceftriaxone given IM. Daughter Elana vu who lives in [place] has called and is interested in bringing Germaine closer to her. July ischarge to SNF near [facility]. Germaine has no complaints. Right hand weakness seems to be subtl y improved today and she has some active wrist motor function. Remains with expressive aphas ia. Review of Systems Unable to perform ROS: Mental acuity (limited ROS due to receptive aphasia) Neurological: Positive for dizziness and focal weakness (right hand and lower arm). Scheduled Meds: aspirin 81 mg Oral Daily atorvaSTATin 40 mg Oral Nightly cefTRIAXone (ROCEPHIN) IM 1 g Intramuscular Daily cefTRIAXone enoxaparin 40 mg Subcutaneous Daily lidocaine (PF) lisinopril 20 mg Oral Daily metoprolol tartrate 12.5 mg Oral BID nicotine 1 patch Transdermal Daily Continuous Infusions: PRN Meds:.acetaminophen, aluminum & magnesium hydroxide-simethicone, calcium carbonate, doc usate sodium, ondansetron, polyethylene glycol, prochlorperazine Objective Vitals Current 24 Hour Average / Min / Max Temp 36.8 C (98.3 F) Temp Min: 36.2 C (97.2 F) Max: 37.1 C (98.8 F) BP 125/70 BP Min: 125/70 Max: 164/76 HR 58 Pulse Av.8 Min: 43 Max: 74 RR 18 Resp Av.7 Min: 10 Max: 26 Sats 95 % SpO2 Min: 93 % Max: 100 % Weight 65.8 kg (145 lb 1 oz) Admit: 78 kg (172 lb) BMI Body mass index is 29.3 kg/m. Physical Exam Constitutional: No distress. Chronically ill appearing female. HENT: Head: Normocephalic and atraumatic. Eyes: Pupils are equal, round, and reactive to light. Conjunctivae and EOM are normal. Cardiovascular: Normal rate and regular rhythm. No murmur heard. Pulmonary/Chest: Effort normal and breath sounds normal. No respiratory distress. She has n o wheezes. She has no rales. Abdominal: Soft. Bowel sounds are normal. She exhibits no distension. There is no tendernes s. There is no rebound. Neurological: She is alert. 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 Today can partly flex and extend R wrist. Some m otor function at right elbow. Sensitive to deep pressure in right hand but not light touch. Oriented to person but not place or season. Speech however is fluent but with receptive a phasia. Repetition impaired. Skin: Skin is warm and dry. Rash (hyperkeratotic, excoriated rash over upper chest and uppe r back) noted. Psychiatric: Pleasant. Recent Results (from the past 24 hour(s)) CBC no Differential Collection Time: 05/20/18 6:50 Result Value Ref Range WBC 6.2 >4.5-<11.0 K/uL RBC 3.98 (L) 4.50 - 6.00 M/uL Hemoglobin 10.9 (L) >12.4-<15.7 g/dL Hematocrit 34.7 (L) >37.7-<47.0 % MCV 87.2 78.0 - 98.0 fL MCH 27.4 26.0 - 32.0 pg MCHC 31.4 31.0 - 36.0 g/dL RDW-CV 14.4 12.0 - 15.0 % Platelet Count 163 >140-<440 K/uL MPV 11.1 fL Basic Metabolic Panel Collection Time: 05/20/18 6:50 Result Value Ref Range Na 141 135 - 144 mmol/L K 3.6 >3.3-<5.8 mmol/L Cl 106 >95-<108 mmol/L CO2 26 23 - 34 mmol/L Anion Gap 9 7 - 16 mmol/L Glucose 85 70 - 110 mg/dL BUN 14 5 - 26 mg/dL Creatinine 0.82 >0.60-<1.30 mg/dL eGFR if not >60 >=60 mL/min/1.73m2 Ca 7.7 (L) 8.3 - 10.0 mg/dL BUN/Creatinine Ratio 17.1 7.0 - 24.0 Magnesium Collection Time: 05/20/18 6:50 Result Value Ref Range Magnesium 1.9 1.8 - 2.4 mg/dL Ct Head Wo Contrast Result Date: 05/18/2018 [place] [address] NAME: GERMAINE BARBOUR Jesus DATE: 05/18/2018 : 0 1945 PT GENDER: F ROOM: ER Physician: ORALIA NEVAREZ PID3: [id number] CC TO: MR#: This report includes an addendum and supersedes previous reports for this exam. ORIGINAL REPORT PROCEDURE: CT BRAIN WITHOUT CONTRAST INDICATIONS: EXTREM ITY WEAKNESS COMPARISON: None. TECHNIQUE: Thin-section images were obtained at the skull ba se, and thin-section images were obtained through the brain without intravenous contrast. O ne or more of the following dose lowering techniques was utilized: Automated exposure contr ol, adjustment of the mA and/or kV according to patient size, or use of iterative reconstruc tion. FINDINGS: CEREBRUM: Focal hypoattenuation involving the left basal ganglia with small central focus of increased density. Multiple foci of hypoattenuation in the white matter ar e nonspecific but most consistent with moderate chronic microvascular ischemic disease. Ther e is mild diffuse cerebral volume loss. CEREBELLUM: Within normal limits. BRAIN STEM: With in normal limits. VENTRICLES: Normal size and configuration. No hydrocephalus or intraventr icular mass. EXTRA-AXIAL SPACES: No acute abnormal fluid collection or mass. SINUSES: Visu alized paranasal sinuses are unremarkable. The mastoid air cells are clear. SKULL: No acute calvarial abnormality. ORBITS: Visualized orbits are unremarkable. SOFT TISSUES: Visualiz ed extracranial soft tissues are unremarkable. IMPRESSION: Focal lucency involving the left basal ganglia likely corresponds to a completed infarct. Comparison to prior imaging would b e helpful if available. Further evaluation with MRI if indicated. at workstation [email or web address] ADDENDUM #1 Add communi cation: Communication: Relayed findings to Dr. Nevarez on 05/18/18 at 5093. Gave her contact info for Dr. Nieves./earle Transcribed by: EARLE at 05/18/2018 5:37 PM at workstation [email or web address] Xr Chest Ap Portable Result Date: 05/18/[address] [address] NAME: ANTONIETTA BLANKENSHIP GERMAINE Jesus DATE: 05/18/2018 : 0 1945 PT GENDER: F ROOM: ER Physician: ORALIA NEVAREZ PID3: [id number] CC TO: MR#: PROCEDURE: AP PORTABLE CHEST X-RAY INDICATION: extremity weakness CO MPARISON: None. FINDINGS: SUPPORT DEVICES: None. HEART: Enlarged. Post-CABG. Sternotomy wir es intact. MEDIASTINUM: Normal mediastinal contours without radiographic evidence of lymphad enopathy. LUNGS: Clear. No focal consolidation. No suspicious lung nodules. PLEURAL SPACES: No pleural effusion or pneumothorax. BONES: No acute or suspicious osseous abnormality. IMP RESSION: No radiographic evidence of acute cardiopulmonary disease. at workstation [id number] Vas Carotid Duplex Bilateral Result Date: 05/19/[address] [address] NAME: GERMAINE BARBOUR DATE: 05/19/2018 : 0 1945 PT GENDER: F ROOM: IN Physician: ORALIA NEVAREZ PID3: [id number] CC TO: MR#: PROCEDURE: ULTRASOUND BILATERAL CAROTID DOPPLER INDICATIONS: Stroke. C OMPARISON: None. FINDINGS: RIGHT CAROTID *All values are in the following format SYSTOLIC; D IASTOLIC* Right CCA Proximal: 61 ; 12 cm/sec Right CCA Mid: 42 ; 11 cm/sec Right CCA Distal: 54 ; 16 cm/sec Right ICA Proximal: 54 ; 14 cm/sec Right ICA Mid: 51 ; 9 cm/sec Right ICA Di stal: 47 ; 13 cm/sec Right ECA Proximal: 42 ; 10 cm/sec Right Vertebral: 53 ; Antegrade cm/s ec RIGHT SYSTOLIC ICA/CCA Ratio: 1.0 RIGHT PLAQUE MORPHOLOGY: Mild Plaque without significa nt stenosis. LEFT CAROTID *All values are in the following format SYSTOLIC; DIASTOLIC* Left CCA Proximal: 66 ; 16 cm/sec Left CCA Mid: 55 ; 13 cm/sec Left CCA Distal: 48 ; 13 cm/sec L eft ICA Proximal: 64 ; 15 cm/sec Left ICA Mid: 61 ; 12 cm/sec Left ICA Distal: 63 ; 15 cm/se c Left ECA Proximal: 40 ; 0cm/sec Left Vertebral: 46 ; Retrograde cm/sec LEFT SYSTOLIC ICA/C CA Ratio: 1.3 LEFT PLAQUE MORPHOLOGY: Mild plaque without significant stenosis. Comments: There is mild plaque without significant stenosis in the right and left carotid bifurcation. Retrograde flow left vertebral artery with antegrade flow on the right. Right ICA diameter reduction based on NASCET criteria: 16-49% Left ICA diameter reduction based on NASCET crite amanda: 16-49% IMPRESSION: 1. There is mild plaque in the carotid bifurcations bilaterally wit hout hemodynamically significant stenosis. 2. Both vertebral arteries are patent, but there is retrograde flow in the right vertebral artery. This may be secondary to a subclavian pooja al from a proximal stenosis. Consider correlation with CT angiogram or MR angiogram of the a ortic arch and carotid arteries. Given the patients history of stroke, recommend including i ntracranial CT or MR angiography. NASCET Criteria - Degree of Stenosis Normal = ICA PSV [ 1 25 cm/s; plaque none; ICA/CCA PSV Ratio [ 2.0; ICA EDV [ 40 cm/s. [ 50 = ICA PSV [ 125 cm/s; plaque [ /=50; ICA/CCA PSV Ratio [ 2.0; ICA EDV [ 40 cm/s. 50-69 = ICA PSV 125-230 cm/s; pl aque ] /= 50; ICA/CCA PSV Ratio 2.0-4.0; ICA EDV 40-100 cm/s. ] /=70 but less than near occl usion = ICA PSV ] 230 cm/s; plaque ] /= 50; ICA/CCA PSV Ratio ] 4.0; ICA EDV ] 100 cm/s. Kathia r occlusion = ICA PSV high, low, or undetectable; plaque visible; ICA/CCA PSV Ratio variable ; ICA EDV variable. Total occlusion = ICA PSV undetectable; plaque visible, no detectable l umen; ICA/CCA PSV Ratio not applicable; ICA EDV not applicable. Transcribed by: INDIRA at 2018 3:20 PM at work station [id number] Xr Hand Right 3 + Vw Result Date: 05/18/[address] [address] NAME: GERMAINE BARBOUR DATE: 05/18/2018 : 0 1945 PT GENDER: F ROOM: ER Physician: ORALIA NEVAREZ PID3: [id number] CC TO: MR#: PROCEDURE: RIGHT HAND - THREE VIEWS INDICATIONS: EXTREMITY WEAKNESS CO MPARISON: None. FINDINGS: Bones are severely osteopenic. Central erosion at the third proxim al phalanx with marginal osteophytes. Multifocal interphalangeal degenerative joint space lo ss with marginal osteophytes. Degeneration at the first CMC and triscaphe articulations. Sca ttered calcified atherosclerosis. IMPRESSION: 1. Erosive arthropathy noted at the third PIP and fifth DIP. 2. Bones are severely osteopenic. 3. 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 Next line scattered vascular calcifications and sof t tissue swelling. at [employer] ion [id number] Electronically signed: Oralia Nevarez MD 05/20/2018 10:37 DATE OF SERVICE: 05/20/2018 1 1:10 AM Lani, Oralia Dove MD - 05/19/2018 12:47 PM PST DAILY PROGRESS NOTE Germaine Blankenship : 1945 ADMISSION DATE AND TIME05/18/2018 15:14 DATE OF Service 05/19/2018 Hospital Day: 2 Inpatient Assessment & Plan ID Statement: Germaine Blankenship is a 72 y.o. female with past medical history of CAD s/p CABG x 4, cath 2016, HTN, nephrolithiasis, remote CVA with memory deficits, hx of ETOH a buse, history of gastric bypass who presents to the ED for evaluation of right arm pain and weakness which started two days ago. Multidisciplinary rounds were performed at bedside without family in attendance. Plan/Course by Problem: # left basal ganglia stroke # Right lower arm and hand paresis, sensory deficit - echo and bilateral carotid duplex US done today, report pending. - PT/OT - telemetry. Plan for 2 week event monitor as outpatient. - high intensity statin, baby ASA started. - restarted home lisinopril, metoprolol. Still mildly hypertensive, acceptable given recent stroke although outside window for permissive HTN. # UTI. Culture growing >100K cfu GNRs. - CTX 1g IV daily. - follow up urine culture # hypokalemia. K 2.4 on admission. May be chronic as she was on outpatient supplementation at some point. - improved after IV and PO repletion yesterday. - replete PO today and recheck in am. 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 biop sied at [facility] in Jan 2018. Reviewed by dermatopathologist. Differential based on path findings is Pride's disease, Ninfa-Ninfa disease, Darier disease and eczematous process. - plan to consult [facility] derm by phone prior to discharge. # cognitive impairment. Unclear how much is patient's baseline vs recent CVA vs remote CVA vs dementia (vascular or alzheimer's). - Appreciate GIOVANNI Bain assistance with [facility]-SLUMS and cognitive eval 05/20 FEN:(albumin <= 3.2 g/dL) VTE Prophylxis low molecular weight heparin Code Status: Full Code Anticipated Date of Discharge: 05/21/18 Anticipated Discharge needs: community resources, housing resources, CHW support. Post-Hospital Care: Home Marquise Herron is pleasant today although per nursing, impulsive, needs to be reminded not to get OO B without assistance. She is amenable to staying in hospital for a few days and Trey araujo will take shuttle to [place] to take care of their dog. Review of Systems Constitutional: Negative for chills and fever. Respiratory: Negative for shortness of breath. Cardiovascular: Negative for chest pain. Gastrointestinal: Negative for abdominal pain and nausea. Neurological: Positive for focal weakness (right hand and lower arm). Negative for dizzines s. Scheduled Meds: aspirin 81 mg Oral Daily atorvaSTATin 40 mg Oral Nightly cefTRIAXone 1 g Intravenous Daily enoxaparin 40 mg Subcutaneous Daily lisinopril 20 mg Oral Daily magnesium oxide 800 mg Oral BID metoprolol tartrate 25 mg Oral BID nicotine 1 patch Transdermal Daily Continuous Infusions: PRN Meds:.acetaminophen, aluminum & magnesium hydroxide-simethicone, calcium carbonate, doc usate sodium, ondansetron, polyethylene glycol, prochlorperazine Objective Vitals Current 24 Hour Average / Min / Max Temp 36.7 C (98.1 F) Temp Min: 36.4 C (97.5 F) Max: 37.2 C (98.9 F) BP 168/80 BP Min: 127/96 Max: 187/77 HR 56 Pulse Av.1 Min: 45 Max: 66 RR 11 Resp Av.8 Min: 10 Max: 23 Sats 97 % SpO2 Min: 93 % Max: 100 % Weight 64.6 kg (142 lb 6.7 oz) Admit: 78 kg (172 lb) BMI Body mass index is 28.76 kg/m. Physical Exam Constitutional: No distress. Chronically ill appearing female. HENT: Head: Normocephalic and atraumatic. Eyes: Pupils are equal, round, and reactive to light. Conjunctivae and EOM are normal. Cardiovascular: Normal rate and regular rhythm. No murmur heard. Pulmonary/Chest: Effort normal and breath sounds normal. No respiratory distress. She has n o wheezes. She has no rales. Abdominal: Soft. Bowel sounds are normal. She exhibits no distension. There is no tendernes s. There is no rebound. Neurological: Flaccid paralysis of digits of right hand. Unable to flex or extend R wrist. Some motor fun ction at right elbow. Sensitive to deep pressure in right hand but not light touch. [place] ed to person but not place or season. Speech however is fluent. Repetition intact. Skin: Skin is warm and dry. Rash (hyperkeratotic, excoriated rash over upper chest and uppe r back) noted. Psychiatric: Pleasant. Recent Results (from the past 24 hour(s)) CBC with Differential Collection Time: 05/18/18 15:11 Result Value Ref Range WBC 7.6 >4.5-<11.0 K/uL RBC 4.23 (L) 4.50 - 6.00 M/uL Hemoglobin 11.9 (L) >12.4-<15.7 g/dL Hematocrit 37.2 (L) >37.7-<47.0 % MCV 87.9 78.0 - 98.0 fL MCH 28.1 26.0 - 32.0 pg MCHC 32.0 31.0 - 36.0 g/dL RDW-CV 14.6 12.0 - 15.0 % Platelet Count 196 >140-<440 K/uL MPV 11.3 fL % Neutrophils 67.7 37.0 - 80.0 % % Lymphocytes 24.3 10.0 - 50.0 % % Monocytes 6.1 0.0 - 12.0 % % Eosinophils 1.1 0.0 - 7.0 % % Basophils 0.5 0.0 - 2.5 % Absolute Neutrophils 5.15 1.67 - 8.80 K/uL Absolute Lymphocytes 1.85 0.60 - 3.40 K/uL Absolute Monocytes 0.46 0.00 - 4.00 K/uL Absolute Eosinophils 0.08 0.00 - 2.50 K/uL Absolute Basophils 0.04 0.00 - 0.20 K/uL Comprehensive Metabolic Panel Collection Time: 05/18/18 15:11 Result Value Ref Range Na 146 (H) 135 - 144 mmol/L K 2.4 (LL) >3.3-<5.8 mmol/L Cl 106 >95-<108 mmol/L CO2 31 23 - 34 mmol/L Anion Gap 9 7 - 16 mmol/L Glucose 118 (H) 70 - 110 mg/dL BUN 21 5 - 26 mg/dL Creatinine 0.98 >0.60-<1.30 mg/dL eGFR if not 56 (L) >=60 mL/min/1.73m2 Ca 8.2 (L) 8.3 - 10.0 mg/dL Albumin 3.1 3.0 - 4.5 g/dL Bilirubin Total 0.4 0.0 - 1.0 mg/dL Total Protein 6.6 6.6 - 8.5 g/dL AST 22 16 - 38 U/L ALT 14 (L) 18 - 63 U/L Alkaline Phosphatase 74 50 - 136 U/L Globulin 3.5 1.5 - 3.5 g/dL Albumin/Globulin Ratio 0.9 (L) 1.0 - 2.5 BUN/Creatinine Ratio 21.4 7.0 - 24.0 Lipase Collection Time: 05/18/18 15:11 Result Value Ref Range Lipase 98 73 - 393 U/L TSH Collection Time: 05/18/18 15:11 Result Value Ref Range TSH 0.499 0.358 - 3.740 uIU/mL B Type Natriuretic Peptide Collection Time: 05/18/18 15:11 Result Value Ref Range NT-proBNP 1,571 (H) 0 - 125 pg/mL Troponin I Collection Time: 05/18/18 15:11 Result Value Ref Range Troponin I 0.030 0.000 - 0.090 ng/mL Ethanol Collection Time: 05/18/18 15:11 Result Value Ref Range ALCOHOL, SERUM/PLASMA <3 0 - 3 mg/dL Lactic Acid Collection Time: 05/18/18 15:35 Result Value Ref Range Lactate 1.7 >0.0-<2.0 mmol/L Urinalysis With Microscopic Collection Time: 05/18/18 16:03 Result Value Ref Range Color Yellow Straw, Yellow, Light Yellow Clarity Clear Clear pH, Urine 5.5 5.0 - 8.0 Specific [place] 1.025 1.005 - 1.030 Protein, Urine 30 mg/dL (A) Negative Blood, Urine Negative Negative, Trace Glucose, Urine Negative Negative Ketones, Urine Negative Negative Bilirubin, Urine Negative Negative Nitrite, Urine Negative Negative Leukocyte Esterase, Urine Trace (A) Negative Urobilinogen, Urine 2.0 E.U./dL (A) 0.2 E.U./dL, 1.0 E.U./dL WBC UA 6-10 (A) None Seen /HPF RBC UA 0-2 (A) None Seen /HPF SQUAMOUS EPITHELIAL UA Many (A) None Seen, Trace, Few /LPF BACTERIA UA 4+ (A) None Seen, Trace /HPF Culture, Urine Collection Time: 05/18/18 16:52 Result Value Ref Range Culture Culture in progress... Culture >100,000 CFU/ml Lactose Fermenting Gram Negative Bacilli Drugs of Abuse, Screen, Urine Collection Time: 05/18/18 19:21 Result Value Ref Range Barbiturates Screen, Urine Negative Negative Benzodiazepines Screen, Urine Negative Negative Cannabinoids Screen, Urine Presumptive Positive (A) Negative Cocaine Screen, Urine Negative Negative Methadone Screen, Urine Negative Negative Opiates Screen, Urine Negative Negative Phencyclidine Screen, Urine Negative Negative Methamphetamine Screen, Urine Negative Negative Amphetamine Screen, Urine Negative Negative Tricyclic Antidepressants Screen, Urine Negative Negative Oxycodone Screen, Urine Negative Negative Propoxyphene Screen, Urine Negative Negative Buprenorphine Screen, Urine Negative Negative Magnesium Collection Time: 05/19/18 4:50 Result Value Ref Range Magnesium 1.8 1.8 - 2.4 mg/dL Basic Metabolic Panel Collection Time: 05/19/18 4:50 Result Value Ref Range Na 145 (H) 135 - 144 mmol/L K 2.9 (L) >3.3-<5.8 mmol/L Cl 107 >95-<108 mmol/L CO2 28 23 - 34 mmol/L Anion Gap 10 7 - 16 mmol/L Glucose 89 70 - 110 mg/dL BUN 18 5 - 26 mg/dL Creatinine 0.76 >0.60-<1.30 mg/dL eGFR if not >60 >=60 mL/min/1.73m2 Ca 7.9 (L) 8.3 - 10.0 mg/dL BUN/Creatinine Ratio 23.7 7.0 - 24.0 CBC no Differential Collection Time: 05/19/18 4:50 Result Value Ref Range WBC 7.0 >4.5-<11.0 K/uL RBC 4.11 (L) 4.50 - 6.00 M/uL Hemoglobin 11.4 (L) >12.4-<15.7 g/dL Hematocrit 35.8 (L) >37.7-<47.0 % MCV 87.1 78.0 - 98.0 fL MCH 27.7 26.0 - 32.0 pg MCHC 31.8 31.0 - 36.0 g/dL RDW-CV 14.5 12.0 - 15.0 % Platelet Count 175 >140-<440 K/uL MPV 11.[address] Head Wo Contrast Result Date: 05/18/2018 [place] [address] NAME: GERMAINE BARBOUR DATE: 05/18/2018 : 0 1945 PT GENDER: F ROOM: ER Physician: ORALIA NEVAREZ PID3: [id number] CC TO: MR#: This report includes an addendum and supersedes previous reports for this exam. ORIGINAL REPORT PROCEDURE: CT BRAIN WITHOUT CONTRAST INDICATIONS: EXTREM ITY WEAKNESS COMPARISON: None. TECHNIQUE: Thin-section images were obtained at the skull ba se, and thin-section images were obtained through the brain without intravenous contrast. O ne or more of the following dose lowering techniques was utilized: Automated exposure contr ol, adjustment of the mA and/or kV according to patient size, or use of iterative reconstruc tion. FINDINGS: CEREBRUM: Focal hypoattenuation involving the left basal ganglia with small central focus of increased density. Multiple foci of hypoattenuation in the white matter ar e nonspecific but most consistent with moderate chronic microvascular ischemic disease. Ther e is mild diffuse cerebral volume loss. CEREBELLUM: Within normal limits. BRAIN STEM: With in normal limits. VENTRICLES: Normal size and configuration. No hydrocephalus or intraventr icular mass. EXTRA-AXIAL SPACES: No acute abnormal fluid collection or mass. SINUSES: Visu alized paranasal sinuses are unremarkable. The mastoid air cells are clear. SKULL: No acute calvarial abnormality. ORBITS: Visualized orbits are unremarkable. SOFT TISSUES: Visualiz ed extracranial soft tissues are unremarkable. IMPRESSION: Focal lucency involving the left basal ganglia likely corresponds to a completed infarct. Comparison to prior imaging would b e helpful if available. Further evaluation with MRI if indicated. at workstation [id number] ADDENDUM #1 Add communi cation: Communication: Relayed findings to Dr. Nevarez on 05/18/18 at 6967. Gave her contact info for Dr. Nieves./hs Transcribed by: HS at 05/18/2018 5:37 PM at workstation [id number] Xr Chest Ap Portable Result Date: 05/18/[address] [address] NAME: GERMAINE BARBOUR DATE: 05/18/2018 : 0 1945 PT GENDER: F ROOM: ER Physician: ORALIA NEVAREZ PID3: [id number] CC TO: MR#: PROCEDURE: AP PORTABLE CHEST X-RAY INDICATION: extremity weakness CO MPARISON: None. FINDINGS: SUPPORT DEVICES: None. HEART: Enlarged. Post-CABG. Sternotomy wir es intact. MEDIASTINUM: Normal mediastinal contours without radiographic evidence of lymphad enopathy. LUNGS: Clear. No focal consolidation. No suspicious lung nodules. PLEURAL SPACES: No pleural effusion or pneumothorax. BONES: No acute or suspicious osseous abnormality. IMP RESSION: No radiographic evidence of acute cardiopulmonary disease. at workstation [id number] Xr Hand Right 3 + Vw Result Date: 05/18/[address] [address] NAME: GERMAINE BARBOUR DATE: 05/18/2018 : 0 1945 PT GENDER: F ROOM: ER Physician: ORALIA NEVAREZ PID3: [id number] CC TO: MR#: PROCEDURE: RIGHT HAND - THREE VIEWS INDICATIONS: EXTREMITY WEAKNESS CO MPARISON: None. FINDINGS: Bones are severely osteopenic. Central erosion at the third proxim al phalanx with marginal osteophytes. Multifocal interphalangeal degenerative joint space lo ss with marginal osteophytes. Degeneration at the first CMC and triscaphe articulations. Sca ttered calcified atherosclerosis. IMPRESSION: 1. Erosive arthropathy noted at the third PIP and fifth DIP. 2. Bones are severely osteopenic. 3. 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 Next line scattered vascular calcifications and sof t tissue swelling. at [id number] Electronically signed: Oralia Nevarez MD 05/19/2018 12:47 DATE OF SERVICE: 05/19/2018 documented in this encounter Plan of Treatment + +------+--------+ + + | Name | Type | Priori | Associated Diagnoses | Date/Time | | | | ty | | | + +------+--------+ + + | ED INFORMATION | GIOVANI | Routin | | 05/18/2018 3:15 PM | | EXCHANGE | | e | | PST | + +------+--------+ + + documented as of this encounter Procedures + +--------+ + + + | Procedure Name | Priori | Date/Time | Associated Diagnosis | Comments | | | ty | | | | + +--------+ + + + | CBC NO DIFFERENTIAL | Routin | 05/22/2018 | | Results for this | | | e | 6:50 AM | | procedure are in the | | | | PST | | results section. | + +--------+ + + + | CALCIUM, IONIZED | Routin | 05/22/2018 | | Results for this | | | e | 6:50 AM | | procedure are in the | | | | PST | | results section. | + +--------+ + + + | COMPREHENSIVE | Routin | 05/22/2018 | | Results for this | | METABOLIC PANEL | e | 6:50 AM | | procedure are in the | | | | PST | | results section. | + +--------+ + + + | CT ANGIOGRAM HEAD | Routin | 05/20/2018 | | Results for this | | NECK | e | 12:07 PM | | procedure are in the | | | | PST | | results section. | + +--------+ + + + | POCT OCCULT BLOOD | Routin | 05/20/2018 | | Results for this | | STOOL, OTHER THAN | e | 11:36 AM | | procedure are in the | | COLORECTAL NEOPLASM | | PST | | results section. | | SCREENING | | | | | + +--------+ + + + | IRON AND IRON | Add-On | 05/20/2018 | | Results for this | | BINDING CAPACITY | | 11:20 AM | | procedure are in the | | | | PST | | results section. | + +--------+ + + + | TRANSFERRIN | Add-On | 05/20/2018 | | Results for this | | | | 11:20 AM | | procedure are in the | | | | PST | | results section. | + +--------+ + + + | FERRITIN | Add-On | 05/20/2018 | | Results for this | | | | 11:20 AM | | procedure are in the | | | | PST | | results section. | + +--------+ + + + | CBC NO DIFFERENTIAL | Routin | 05/20/2018 | | Results for this | | | e | 6:50 AM | | procedure are in the | | | | PST | | results section. | + +--------+ + + + | MAGNESIUM | Routin | 05/20/2018 | | Results for this | | | e | 6:50 AM | | procedure are in the | | | | PST | | results section. | + +--------+ + + + | BASIC METABOLIC | Routin | 05/20/2018 | | Results for this | | PANEL | e | 6:50 AM | | procedure are in the | | | | PST | | results section. | + +--------+ + + + | VAS CAROTID DUPLEX | Routin | 05/19/2018 | | Results for this | | BILATERAL | e | 8:37 AM | | procedure are in the | | | | PST | | results section. | + +--------+ + + + | ECHO COMPLETE | Routin | 05/19/2018 | | Results for this | | | e | 8:02 AM | | procedure are in the | | | | PST | | results section. | + +--------+ + + + | CBC NO DIFFERENTIAL | Routin | 05/19/2018 | | Results for this | | | e | 4:50 AM | | procedure are in the | | | | PST | | results section. | + +--------+ + + + | MAGNESIUM | Routin | 05/19/2018 | | Results for this | | | e | 4:50 AM | | procedure are in the | | | | PST | | results section. | + +--------+ + + + | BASIC METABOLIC | Routin | 05/19/2018 | | Results for this | | PANEL | e | 4:50 AM | | procedure are in the | | | | PST | | results section. | + +--------+ + + + | DRUGS OF ABUSE, | STAT | 05/18/2018 | | Results for this | | SCREEN, URINE | | 7:21 PM | | procedure are in the | | | | PST | | results section. | + +--------+ + + + | XR HAND RIGHT 3 + VW | STAT | 05/18/2018 | | Results for this | | | | 4:55 PM | | procedure are in the | | | | PST | | results section. | + +--------+ + + + | CT HEAD WO CONTRAST | STAT | 05/18/2018 | | Results for this | | | | 4:54 PM | | procedure are in the | | | | PST | | results section. | + +--------+ + + + | CULTURE, URINE | Add-On | 05/18/2018 | | Results for this | | | | 4:52 PM | | procedure are in the | | | | PST | | results section. | + +--------+ + + + | URINALYSIS WITH | STAT | 05/18/2018 | | Results for this | | MICROSCOPIC | | 4:03 PM | | procedure are in the | | | | PST | | results section. | + +--------+ + + + | ECG 12 LEAD | STAT | 05/18/2018 | | | | | | 3:46 PM | | | | | | PST | | | + +--------+ + + + | LACTIC ACID | STAT | 05/18/2018 | | Results for this | | | | 3:35 PM | | procedure are in the | | | | PST | | results section. | + +--------+ + + + | XR CHEST AP PORTABLE | STAT | 05/18/2018 | | Results for this | | | | 3:34 PM | | procedure are in the | | | | PST | | results section. | + +--------+ + + + | ED INFORMATION | Routin | 05/18/2018 | | | | EXCHANGE | e | 3:15 PM | | | | | | PST | | | + +--------+ + + + +---+--------+ | | | | | Proced | | | ure | | | Note - | | | Victor Hugo, | | | Lab In | | | | | | Hlseve | | | n - | | | | | | 2018 | | | 3:16 | | | PM PST | | | | | | Format | | | ting | | | of | | | this | | | note | | | might | | | be | | | differ | | | ent | | | from | | | the | | | origin | | | al.COL | | | LECTIV | | | E?NOTI | | | FICATI | | | ON?/ | | | | | | 9 | | | 15:14? | | | [place] | | | BARNET | | | T, | | | GERMAINE | | | D?MRN: | | | | | | [id number] | | | [id number] | | | riteri | | | a Met | | | PDMP | | | 5 | | | Visits | | | In 12 | | | | | | Months | | | Has | | | Guidel | | | inesSe | | | curity | | | and | | | Safety | | | No | | | [...] | | | ermelinda | | | for | | | this | | | patien | | | t. | | | Please | | | check | | | your | | | facili | | | ty's | | | medica | | | l | | | record | | | s | | | system | | | .Care | | | Histor | | | yMedic | | | al/Carole | | | [id number] | | | /12/18 | | | 12:00 | | | AM | | | [facility] [place] | | | y | | | [...] | | | ing | | | care.P | | | rescri | | | ption | | | Drug | | | Report | | | (12 | | | Mo.)Rx | | | | | | Detail | | | sFill | | | Date | | | [...] | | N, MD | | | 0 | | | 2018-0 | | | 9-19 | | | MORPHI | | | NE | | | SULF | | | ER 60 | | | MG | | | TABLET | | | 56 | | | TUAN | | | CONKLI | | | N, MD | | | 0 | | | 2018-0 | | | 9-19 | | | OXYCOD | | | ONE-AC | | | ETAMIN | | | OPHEN | | | 10-325 | | | 145 | | | TUAN | | | CONKLI | | | N, MD | | | 0 | | | 2018-0 | | | 8-20 | | | [place] | | | NE | | | SULF | | | ER 30 | | | MG | | | TABLET | | | 56 | | | TUAN | | | CONKLI | | | N, MD | | | 0 | | | 2018-0 | | | 8-20 | | | [place] | | | NE | | | SULF | | | ER 60 | | | MG | | | TABLET | | | 56 | | | TUAN | | | CONKLI | | | N, MD | | | 0 | | | 2018-0 | | | 8-20 | | | OXYCOD | | | ONE-AC | | | ETAMIN | | | OPHEN | | | 10-325 | | | 145 | | | TUAN | | | CONKLI | | | N, MD | | | 0 | | | 2018-0 | | | 7-16 | | | M[place]I | | | NE | | | SULF | | | ER 30 | | | MG | | | TABLET | | | 56 | | | TUAN | | | CONKLI | | | N, MD | | | 0 | | | 2018-0 | | | 7-16 | | | OXYCOD | | | ONE-AC | | | ETAMIN | | | OPHEN | | | 10-325 | | | 145 | | | TUAN | | | CONKLI | | | N, MD | | | 0 | | | 2018-0 | | | 7-16 | | | M[place]PHI | | | NE | | | SULF | | | ER 60 | | | MG | | | TABLET | | | 56 | | | TUAN | | | CONKLI | | | N, MD | | | 0 | | | 2018-0 | | | 6-24 | | | HYDROC | | | ODONE- | | | ACETAM | | | IN | | | 5-325 | | | MG 10 | | | ALEX | | | SLADE, | | | MD 0 | | | 2018-0 | | | 6-18 | | | OXYCOD | | | ONE-AC | | | ETAMIN | | | OPHEN | | | 10-325 | | | 145 | | | TUAN | | | CONKLI | | | N, MD | | | 0 | | | 2018-0 | | | 6-18 | | | M[facility]I | | | NE | | | SULF | | | ER 30 | | | MG | | | TABLET | | | 56 | | | TUAN | | | CONKLI | | | N, MD | | | 0 | | | 2018-0 | | | 6-18 | | | M[facility]I | | | NE | | | SULF | | | ER 60 | | | MG | | | TABLET | | | 56 | | | TUAN | | | CONKLI | | | N, MD | | | 0 | | | 2018-0 | | | 5-28 | | | M[facility] | | | NE | | | SULF | | | ER 60 | | | MG | | | TABLET | | | 56 | | | TUAN | | | CONKLI | | | N, MD | | | 0 | | | 2018-0 | | | 5-28 | | | OXYCOD | | | ONE-AC | | | ETAMIN | | | OPHEN | | | 10-325 | | | 145 | | | TUAN | | | CONKLI | | | N, MD | | | 0 | | | 2018-0 | | | 5-28 | | | [facility] | | | NE | | | SULF | | | ER 30 | | | MG | | | TABLET | | | 56 | | | TUAN | | | CONKLI | | | N, MD | | | 0 | | | 2018-0 | | | 4-30 | | | [facility] | | | NE | | | SULF | | | ER 30 | | | MG | | | TABLET | | | 56 | | | TUAN | | | CONKLI | | | N, MD | | | 0 | | | 2018-0 | | | 4-30 | | | [facility] | | | NE | | | SULF | | | ER 60 | | | MG | | | TABLET | | | 56 | | | TUAN | | | CONKLI | | | N, MD | | | 0 | | | 2018-0 | | | 4-30 | | | OXYCOD | | | ONE-AC | | | ETAMIN | | | OPHEN | | | 10-325 | | | 145 | | | TUAN | | | CONKLI | | | N, MD | | | 0 | | | 2018-0 | | | 4-02 | | | [facility] | | | NE | | | SULF | | | ER 30 | | | MG | | | TABLET | | | 56 | | | TUAN | | | CONKLI | | | N, MD | | | 0 | | | Showin | | | g 20 | | | of the | | | 25 | | | most-r | | | ecent | | | prescr | | | iption | | | s Rx | | | [facility] | | | yMetri | | | c | | | Count | | | CS | | | II-V | | | Rx 0 | | | CS-II | | | Rx 0 | | | Quanti | | | ty | | | Dispen | | | sed | | | 2,066 | | | Unique | | | | | | Prescr | | | ibers | | | 2 | | | Unique | | | | | | Pharma | | | cies 2 | | | | | | Benzos | | | 0 | | | Opioid | | | s 0 | | | Long | | | Acting | | | | | | Opioid | | | s 0 | | | E.D. | | | Visit | | | Count | | | (12 | | | mo.)Fa | | | cility | | | | | | Visits | | | | | | [facility] a [facility] | | | [facility] | | | al 2 | | | [facility] | | | [facility] | [facility] | | | al 2 | | | [facility] [place] | | | y | | | Hospit | | | al 4 | | | Total | | | 8 | | | Note: | | | Visits | | | | | | indica | | | te | | | total | | | known | | | visits | | | . | | | Recent | | | | | | Emerge | | | ncy | | | Depart | | | ment | | | Visit | | | [facility] | | | yDate | | | Facili | | | ty | | | City | | | State | | | Type | | | Diagno | | | ses or | | | Chief | | | | | | Compla | | | int | | | Feb | | | 18, | | | 2019 | | | [facility] | | | a | | | [facility] | | | al [facility] | | | [place] | | | [place] | | | Emerge | | | ncy | | | Nov 6, | | | 2018 | | | [facility] | | | [facility] [place] | | | Emerge | | | ncy | | | rash | | | | | | Essent | | | ial | | | (prima | | | ry) | | | hypert | | | ension | | | | | | Patien | | | t's | | | other | | | noncom | | | plianc | | | e with | | | | | | medica | | | tion | | | regime | | | n | | | Rash | | | and | | | other | | | nonspe | | | cific | | | skin | | | erupti | | | on | | | Oct 6, | | | 2018 | | [...] | | | 2018 | | | [facility] | | | [facility] | | | [...] | | | St. | | | [place] | | | y H. | | [...] | | | St. | | | [place] | | | y H. | | [...] | | | ence | | | Apr | | | 13, | | | 2018 | | | [facility] [place] | | | [facility] | | | [place] | | | [place] | | | Emerge | | | ncy | | | Other | | | long | | | term | | | (curre | | | nt) | | | drug | | | therap | | | y | | | [place] | | | lemia | | | | | | Person | | | al | | | histor | | | y of | | | nicoti | | | ne | | | depend | | | ence | | | | | | Hemorr | | | татьяна | | | of | | | anus | | | and | | | rectum | | | | | | Person [...] | | | ts | | | Allerg | | | y | | | status | | | to | | | narcot | | | ic | | | agent | | | status | | | Mar | | | 10, | | | 2018 | | | [facility] [place] | | | [facility] | | | [place] | | | [place] | | | Emerge | | | ncy | | | Fall | | | on | | | same | | | level | | | from | | | slippi | | | ng, | | | trippi | | | ng and | | | | | | stumbl | | | ing | | | withou | | | t | | | subseq | | | uent | | | striki | | | ng | | | agains | | | t | | | object | | | , | | | initia | | | l | | | encoun | | | ter | | | Other | | | [...] | | | ified | | | sprain | | | of | | | right | | | wrist, | | | | | | initia | | | l | | | encoun | | | ter | | | | | | Unspec | | | ified | | | sprain | | | of | | | unspec | | | ified | | | elbow, | | | | | | initia | | | l | | | encoun | | | ter | | | | | | Person | | | al | | | histor | | | y of | | | nicoti | | | ne | | | depend | | | ence | | | | | | Unspec | | | ified | | | injury | | | of | | | right | | | wrist, | | | hand | | | and | | | finger | | | (s), | | | initia | | | l | | | encoun | | | ter | | | Recent | | | | | | Inpati | | | ent | | | Visit | | | [facility] | | | yNo | | | record | | | ed | | | inpati | | | ent | | | visits | | | . Care | | | | | | Provid | | | ersPro | | | vider | | | PRC | | | Type | | | Phone | | | Fax | | | Servic | | | e | | | Dates | | | [facility] | | | n, | | | Tuan | | | R MD, | | | MD PC | | | Family | | [...] | | | t | | | Collec | | | tive | | | Portal | | | This | | | patien | | | t has | | | regist | | | ered | | | at the | | | | | | [facility] | | | a | | | [facility] | | | al | | | Hospit | | | al | | | Emerge | | | ncy | | | Depart | | | ment | | | For | | | more | | | inform | | | ation | | | visit: | | | | | | https: | | | //prov | | | .ediec | | | arepla | | | n.com/ | | | patien | | | [id number] | | | [email or web address] | | | [id number] | | | [phone] | | | [id number] | | | [id number] | | | 5c The | | | above | | | | | | inform | | | [...] | | | ? | | | 2019 | | | [facility] | | | tive | | | Medica | | | l | | | [employer] | | | logies | | | , [employer] | | | - | | | [place] | | | [place] | | | [facility], | | | MS - | | | info@c | | | ollect | | | ivemed | | | icalte | | | ch.com | | | | +---+--------+ + +------+ +---+ + | TROPONIN I | STAT | 05/18/2018 | | Results for this | | | | 3:11 PM | | procedure are in the | | | | PST | | results section. | + +------+ +---+ + | CBC WITH | STAT | 05/18/2018 | | Results for this | | DIFFERENTIAL | | 3:11 PM | | procedure are in the | | | | PST | | results section. | + +------+ +---+ + | TSH | STAT | 05/18/2018 | | Results for this | | | | 3:11 PM | | procedure are in the | | | | PST | | results section. | + +------+ +---+ + | B TYPE NATRIURETIC | STAT | 05/18/2018 | | Results for this | | PEPTIDE | | 3:11 PM | | procedure are in the | | | | PST | | results section. | + +------+ +---+ + | LIPASE | STAT | 05/18/2018 | | Results for this | | | | 3:11 PM | | procedure are in the | | | | PST | | results section. | + +------+ +---+ + | ALCOHOL | STAT | 05/18/2018 | | Results for this | | | | 3:11 PM | | procedure are in the | | | | PST | | results section. | + +------+ +---+ + | COMPREHENSIVE | STAT | 05/18/2018 | | Results for this | | METABOLIC PANEL | | 3:11 PM | | procedure are in the | | | | PST | | results section. | + +------+ +---+ + documented in this encounter Results CBC no Differential (05/22/2018 6:50 AM PST) + + + + + + | Component | Value | Ref Range | Performed | Pathologist | | | | | At | Signature | + + + + + + | WBC | 8.7 | >4.5-<11.0 K/uL | [facility] | [facility] | | + + + + + + | RBC | 3.89 (L) | 4.50 - 6.00 | [facility] | | | | | M/uL | [facility] | | | [facility] | | + + + + + + | Hemoglobin | 10.8 (L) | >12.4-<15.7 | [facility] | | | | | g/dL | [facility] | | | | | [facility] | | + + + + + + | Hematocrit | 33.9 (L) | >37.7-<47.0 % | [facility] | | + + + + + + | MCV | 87.1 | 78.0 - 98.0 fL | [facility] | | + + + + + + | MCH | 27.8 | 26.0 - 32.0 pg | [facility] | | [facility] | | [facility] | | + + + + + + | MCHC | 31.9 | 31.0 - 36.0 | [facility] | | | | | g/dL | [facility] | | | | [facility] | | + + + + + + | RDW-CV | 14.6 | 12.0 - 15.0 % | [facility] | [facility] | | [facility] | | + + + + + + | Platelet | 187 | >140-<440 K/uL | [facility] | | | Count | | | [facility] | | [facility] | | | | | | [facility] | | + + + + + + | MPV | 11.2 | fL | [facility] | | | | | | [facility] | | + + + + + + + + | Specimen | + + | Blood | + + + + + + + | Performing | Address | City/State/Zipcode | Phone Number | | Organization | | | | + + + + + | [facility] | [address] | [place] [address] | [phone] | | [facility] | | | | + + + + + Calcium, Ionized (05/22/2018 6:50 AM PST) + + + + + + | Component | Value | Ref Range | Performed | Pathologist | | | | | At | Signature | + + + + + + | pH | 7.52 (H) | 7.31 - 7.41 | [facility] | | | | | | [facility] | | | | | | [facility] | | | | | | LABORATORY | | + + + + + + | Calcium, | 1.06 (L)Comment: CA ION: | 1.11 - 1.30 | [facility] | | | Ionized | L | mmol/L | COMM[facility] | | | | | | HOSPITAL | | | | | | LABORATORY | | + + + + + + + + | Specimen | + + | Blood | + + + + + + + | Performing | Address | City/State/Zipcode | Phone Number | | Organization | | | | + + + + + | [facility] | [address] | [place] [address] | [phone] | | HOSPITAL LABORATORY | | | | + + + + + Comprehensive Metabolic Panel (05/22/2018 6:50 AM PST) + + + + + + | Component | Value | Ref Range | Performed | Pathologist | | | | | At | Signature | + + + + + + | Na | 142 | 135 - 144 | [facility] | | | | | mmol/L | [facility] | | | | | | [facility] | | | | | | LABORATORY | | + + + + + + | K | 3.6 | >3.3-<5.8 | [facility] | | | | | mmol/L | [facility] | | | | | | [facility] | | | | | | LABORATORY | | + + + + + + | Cl | 106 | >95-<108 mmol/L | [facility] | | | | | [facility] | | | [facility] | | | | | | LABORATORY | | + + + + + + | CO2 | 26 | 23 - 34 mmol/L | [facility] | [facility] | [facility] | | | | | | LABORATORY | | + + + + + + | Anion Gap | 10 | 7 - 16 mmol/L | [facility] | [facility] | | | | | | LABORATORY | | + + + + + + | Glucose | 82 | 70 - 110 mg/dL | [facility] | [facility] | [facility] | [facility] | | | | | | LABORATORY | | + + + + + + | BUN | 13 | 5 - 26 mg/dL | [facility] | | | | | [facility] | | | | | | [facility] | | | | | | LABORATORY | | + + + + + + | Creatinine | 0.76 | >0.60-<1.30 | [facility] | | | | | mg/dL | COMM[facility] | | | | | | HOSPITAL | | | | | | LABORATORY | | + + + + + + | eGFR if not | >60Comment: GLOMERULAR | >=60 | [facility] | | | | FILTRATION | mL/min/1.73m2 | [facility] | | | [facility] | RATE,ESTIMATED | | HOSPITAL | | | | mL/min/1.77n0Ckct than | | LABORATORY | | | | 60 Chronic kidney | | | | | | disease,if found over [...] + + + + | Calcium | 7.8 (L) | 8.3 - 10.0 | [facility] | | | | | mg/dL | COMMUNITY | | | | | | HOSPITAL | | | | | | LABORATORY | | + + + + + + | Albumin | 2.7 (L) | 3.0 - 4.5 g/dL | [facility] | | | | | | [facility] | | | | | | [facility] | | | | | | LABORATORY | | + + + + + + | Bilirubin | 0.3 | 0.0 - 1.0 mg/dL | [facility] | | | Total | | | [facility] | | | | | | LABORATORY | | + + + + + + | Total | 5.8 (L) | 6.6 - 8.5 g/dL | [facility] | | | Protein | | | COMM[facility] | | | | | | [facility] | | | | | | LABORATORY | | + + + + + + | AST | 19 | 16 - 38 U/L | [facility] | | | | | | [facility] | | | | | | [facility] | | | | | | LABORATORY | | + + + + + + | ALT | 10 (L) | 18 - 63 U/L | [facility] | | | | | | [facility] | | [facility] | | [facility] | | | | | | LABORATORY | | + + + + + + | Alkaline | 59 | 50 - 136 U/L | [facility] | | | Phosphatase | | | COMM[facility] | | | | | | [facility] | | | | | | LABORATORY | | + + + + + + | Globulin | 3.1 | 1.5 - 3.5 g/dL | [facility] | | | | | | [facility] | | | | | [facility] | | | | | | LAB[facility]ATORY | | + + + + + + | Albumin/Shirin | 0.9 (L) | 1.0 - 2.5 | [facility] | | | bulin Ratio | | | [facility] | | [facility] | | | | | | LABORATORY | | + + + + + + | BUN/Creatin | 17.1 | 7.0 - 24.0 | [facility] | | | ine Ratio | | | [facility] | | | | | | [facility] | | | | | | LABORATORY | | + + + + + + + + | Specimen | + + | Blood | + + + + + | Narrative | Performed At | + + + | Sulfasalazine and/or Sulfapyridine may interfere with this test and | [facility] | | cause inaccurate results (Ammonia, AST, ALT, and Glucose). It is | [facility] | | recommended that specimen collection should occur prior to | [facility]OSPITAL | | administration of these two drugs. | LABORATORY | + + + + + + + + | Performing | Address | City/State/Zipcode | Phone Number | | Organization | | | | + + + + + | [facility] | [address] | [place] [address] | [phone] | | HOSPITAL LAB[facility]ATORY | | | | + + + + + CT Angiogram Head Neck (05/20/2018 12:07 PM PST) + + | Specimen | + + | | + + + + + | Narrative | Performed At | + + + | [address] | [facility] | | [place], [place] [address] | | | NAME: GERMAINE BARBOUR Jesus DATE: 05/20/2018 : | | | 1945 PT GENDER: F ROOM: IN Physician: ORALIA | | | ROQUE PID3: [id number] CC TO: MR#: | | | PROCEDURE: CTA BRAIN AND NECK WITH CONTRAST INDICATIONS: | | | remote stroke, retrograde flow in R vertebral artery seen on carotid | | | US. COMPARISON: Ultrasound 05/19/2018 TECHNIQUE: Images were | | | obtained through the neck from the arch to the skull base and | | | through the brain from the skull base during the administration of 100 | | | cc nonionic intravenous contrast.Contrast was administered for the | | | evaluation of possible infectious, inflammatory or neoplastic | | | process. Multiplanar and MIP reformations were obtained. One or more | | | of the following dose lowering techniques were utilized: automated | | | exposure control, adjustment of the mA and/or kV according to | | | patient size, or use of iterative reconstruction. FINDINGS: | | | CT BRAIN ANGIOGRAPHY INTRACRANIAL ARTERIES: No aneurysm, vascular | | | malformation, significant stenosis or vascular occlusion. | | | origin of the right posterior cerebral artery incidentally noted. | | | CT NECK ANGIOGRAPHY GREAT VESSEL ARTERIOGRAPHY: There is | | | conventional branching anatomy off the aortic arch. No | | | hemodynamically significant stenosis or aneurysmal dilatation. | | | CAROTID ARTERIES: No hemodynamically significant stenosis. Mild | | | plaque. No evidence of plaque ulceration. VERTEBRAL ARTERIES: | | | No significant stenosis or evidence of dissection. SOFT TISSUES: | | | Enlarged right thyroid gland with multiple nodules. BONES: No | | | concerning lytic or blastic bony lesions. There is less than 50% | | | stenosis of the right internal carotid artery based on the NASCET | | | criteria. There is less than 50% stenosis of the left internal | | | carotid artery based on the NASCET criteria. IMPRESSION: No | | | acute intracranial vascular abnormality. Scattered atherosclerotic | | | plaque without evidence of hemodynamically significant luminal | | | narrowing. No etiology for reversal of flow previously seen in | | | the right vertebral artery. Enlarged multinodular right thyroid | | | gland. Electronically signed by: Ghassan Rush MD on | | | 05/20/2018 1:03 PM at workstation [id number] | | + + + + + | Procedure Note | + + | Javier Gay Results In - 05/20/2018 1:15 PM [facility] | | [address] [facility] | | [place], [place] [address] | | | | | | NAME: GERMAINE BARBOUR DATE: 05/20/2018 | | : 1945 PT GENDER: F ROOM: IN | | Physician: ORALIA NEVAREZ PID3: [id number] | | CC TO: MR#: | | | | | | PROCEDURE: CTA BRAIN AND NECK WITH CONTRAST | | | | INDICATIONS: remote stroke, retrograde flow in R vertebral artery seen on | | carotid US. | | | | COMPARISON: Ultrasound 05/19/2018 | | | | TECHNIQUE: | | Images were obtained through the neck from the arch to the skull base and | | through the brain from the skull base during the administration of 100 cc | | nonionic intravenous contrast.Contrast was administered for the evaluation of | | possible infectious, inflammatory or neoplastic process. Multiplanar and MIP | | reformations were obtained. One or more of the following dose lowering | | techniques were utilized: automated exposure control, adjustment of the mA | | and/or kV according to patient size, or use of iterative reconstruction. | | | | FINDINGS: | | | | CT BRAIN ANGIOGRAPHY | | | | INTRACRANIAL ARTERIES: No aneurysm, vascular malformation, significant | | stenosis or vascular occlusion. origin of the right posterior cerebral | | artery incidentally noted. | | | | CT NECK ANGIOGRAPHY | | | | GREAT VESSEL ARTERIOGRAPHY: There is conventional branching anatomy off the | | aortic arch. No hemodynamically significant stenosis or aneurysmal | | dilatation. | | | | CAROTID ARTERIES: No hemodynamically significant stenosis. Mild plaque. No | | evidence of plaque ulceration. | | | | VERTEBRAL ARTERIES: No significant stenosis or evidence of dissection. | | | | SOFT TISSUES: Enlarged right thyroid gland with multiple nodules. | | | | BONES: No concerning lytic or blastic bony lesions. | | | | There is less than 50% stenosis of the right internal carotid artery based on | | the NASCET criteria. | | There is less than 50% stenosis of the left internal carotid artery based on | | the NASCET criteria. | | | | IMPRESSION: | | No acute intracranial vascular abnormality. | | | | Scattered atherosclerotic plaque without evidence of hemodynamically | | significant luminal narrowing. | | | | No etiology for reversal of flow previously seen in the right vertebral | | artery. | | | | Enlarged multinodular right thyroid gland. | | | | at | | workstation [id number] | + + + +---------+ + + | Performing | Address | City/State/Zipcode | Phone Number | | Organization | | | | + +---------+ + + | [facility] | | | | + +---------+ + + POCT Occ Bld Stl not Colorectal Neoplasm (05/20/2018 11:36 AM PST) + + + + + + | Component | Value | Ref Range | Performed | Pathologist | | | | | At | Signature | + + + + + + | Occult | Negative | Negative | | | | Blood x1, | | | | | | Stool, POC | | | | | + + + + + + | Occult | | Negative | | | | Blood x2, | | | | | | Stool, POC | | | | | + + + + + + | Occult | | Negative | | | | Blood x3, | | | | | | Stool, POC | | | | | + + + + + + | Occult | Acceptable | | | | | Blood QC | | | | | | Result | | | | | + + + + + + | Card Lot # | | | | | + + + + + + | Card | | | | | | Expiration | | | | | | Date | | | | | + + + + + + | Developer | | | | | | Lot # | | | | | + + + + + + | Developer | | | | | | Exp. Date | | | | | + + + + + + + + | Specimen | + + | Stool | + + Transferrin (05/20/2018 11:20 AM PST) + +--------+ + + + | Component | Value | Ref Range | Performed | Pathologist | | | | | At | Signature | + +--------+ + + + | Transferrin | 264.60 | 192 - 382 | REFERENCE | | | | | | LAB | | | | | | [facility] | | + +--------+ + + + + + | Specimen | + + | Blood | + + + + + | Narrative | Performed At | + + + | Testing Performed at: [facility] CLIA: [id number] - [address] | REFERENCE LAB | | [place] [address] | [facility] | + + + + + + + + | Performing | Address | City/State/Zipcode | Phone Number | | Organization | | | | + + + + + | REFERENCE LAB | [address] [facility] [address] | [place] [address] | [phone] | | [facility] | | | | + + + + + | REFERENCE LAB | [address] [facility] [address] | [place] [address] | [phone] | | [facility] | | | | + + + + + Ferritin (05/20/2018 11:20 AM PST) + +-------+ + + + | Component | Value | Ref Range | Performed | Pathologist | | | | | At | Signature | + +-------+ + + + | FERRITIN | 11 | 5 - 93 ng/mL | [facility] | | | | | | COMM[facility]ITY | | | | | | HOSPITAL | | | | | | LABORATORY | | + +-------+ + + + + + | Specimen | + + | Blood | + + + + + + + | Performing | Address | City/State/Zipcode | Phone Number | | Organization | | | | + + + + + | [facility] | [address] | [place] [address] | [phone] | | HOSPITAL LABORATORY | | | | + + + + + Iron and Iron Binding Capacity (05/20/2018 11:20 AM PST) + +--------+ + + + | Component | Value | Ref Range | Performed | Pathologist | | | | | At | Signature | + +--------+ + + + | Iron | 42 (L) | 50 - 170 ug/dL | [facility] | | | | | | COMM[facility]ITY | | | | | | HOSPITAL | | | | | | LABORATORY | | + +--------+ + + + | TIBC | 315 | 250 - 450 ug/dL | [facility] | | | | | | COMM[facility] | | | | | | HOSPITAL | | | | | | LABORATORY | | + +--------+ + + + | Iron | 13 (L) | 15 - 50 % | [facility] | | | Saturation | | | COMMUNITY | | | | | | HOSPITAL | | | | | | LABORATORY | | + +--------+ + + + + + | Specimen | + + | Blood | + + + + + + + | Performing | Address | City/State/Zipcode | Phone Number | | Organization | | | | + + + + + | [facility] | [address] | [place] [address] | [phone] | | HOSPITAL LABORATORY | | | | + + + + + Magnesium (05/20/2018 6:50 AM PST) + +-------+ + + + | Component | Value | Ref Range | Performed | Pathologist | | | | | At | Signature | + +-------+ + + + | Magnesium | 1.9 | 1.8 - 2.4 mg/dL | [facility] | | | | | | COMMUNITY | | | | | | HOSPITAL | | | | | | LABORATORY | | + +-------+ + + + + + | Specimen | + + | Blood | + + + + + + + | Performing | Address | City/State/Zipcode | Phone Number | | Organization | | | | + + + + + | [facility] | [address] | [place] [address] | [phone] | | HOSPITAL LABORATORY | | | | + + + + + Basic Metabolic Panel (05/20/2018 6:50 AM PST) + + + + + + | Component | Value | Ref Range | Performed | Pathologist | | | | | At | Signature | + + + + + + | Na | 141 | 135 - 144 | [facility] | | | | | mmol/L | COMMUNITY | | | | | | HOSPITAL | | | | | | LABORATORY | | + + + + + + | K | 3.6 | >3.3-<5.8 | [facility] | | | | | mmol/L | COMMUNITY | | | | | | HOSPITAL | | | | | | LABORATORY | | + + + + + + | Cl | 106 | >95-<108 mmol/L | [facility] | | | | | | COMM[facility] | | | | | | HOSPITAL | | | | | | LABORATORY | | + + + + + + | CO2 | 26 | 23 - 34 mmol/L | [facility] | | | | | | COMM[facility] | | | | | | HOSPITAL | | | | | | LABORATORY | | + + + + + + | Anion Gap | 9 | 7 - 16 mmol/L | [facility] | | | | | | COMM[facility] | | | | | | HOSPITAL | | | | | | LABORATORY | | + + + + + + | Glucose | 85 | 70 - 110 mg/dL | [facility] | | | | | | COMM[facility] | | | | | | HOSPITAL | | | | | | LABORATORY | | + + + + + + | BUN | 14 | 5 - 26 mg/dL | [facility] | | | | | | COMM[facility] | | | | | | HOSPITAL | | | | | | LABORATORY | | + + + + + + | Creatinine | 0.82 | >0.60-<1.30 | [facility] | | | | | mg/dL | COMMUNITY | | | | | | HOSPITAL | | | | | | LABORATORY | | + + + + + + | eGFR if not | >60Comment: GLOMERULAR | >=60 | [facility] | | | | FILTRATION | mL/min/1.73m2 | [facility] | | | [facility] | RATE,ESTIMATED | | HOSPITAL | | | | mL/min/1.00m2Ypwe than | | LABORATORY | | | | 60 Chronic kidney | | | | | | disease,if found over [...] + + + + | Calcium | 7.7 (L) | 8.3 - 10.0 | [facility] | | | | | mg/dL | COMMUNITY | | | | | | HOSPITAL | | | | | | LABORATORY | | + + + + + + | BUN/Creatin | 17.1 | 7.0 - 24.0 | [facility] | | | ine Ratio | | | COMM[facility]ITY | | | | | | HOSPITAL | | | | | | LABORATORY | | + + + + + + + + | Specimen | + + | Blood | + + + + + | Narrative | Performed At | + + + | Sulfasalazine and/or Sulfapyridine may interfere with this test and | [facility] | | cause inaccurate results (Ammonia, AST, ALT, and Glucose). It is | [facility] | | recommended that specimen collection should occur prior to | HOSPITAL | | administration of these two drugs. | LAB[facility]ATORY | + + + + + + + + | Performing | Address | City/State/Zipcode | Phone Number | | Organization | | | | + + + + + | [facility] | [address] | [place] [address] | [phone] | | HOSPITAL LABORATORY | | | | + + + + + CBC no Differential (05/20/2018 6:50 AM PST) + + + + + + | Component | Value | Ref Range | Performed | Pathologist | | | | | At | Signature | + + + + + + | WBC | 6.2 | >4.5-<11.0 K/uL | [facility] | | | | | | COMMUNITY | | | | | | HOSPITAL | | | | | | LABORATORY | | + + + + + + | RBC | 3.98 (L) | 4.50 - 6.00 | [facility] | | | | | M/uL | COMMUNITY | | | | | | HOSPITAL | | | | | | LABORATORY | | + + + + + + | Hemoglobin | 10.9 (L) | >12.4-<15.7 | [facility] | | | | | g/dL | COMMUNITY | | | | | | HOSPITAL | | | | | | LABORATORY | | + + + + + + | Hematocrit | 34.7 (L) | >37.7-<47.0 % | [facility] | | | | | | COMM[facility] | | | | | | [facility]OSPITAL | | | | | | LABORATORY | | + + + + + + | MCV | 87.2 | 78.0 - 98.0 fL | [facility] | | | | | | COMM[facility] | | | | | | HOSPITAL | | | | | | LABORATORY | | + + + + + + | MCH | 27.4 | 26.0 - 32.0 pg | [facility] | | | | | | COMMUNITY | | | | | | HOSPITAL | | | | | | LABORATORY | | + + + + + + | MCHC | 31.4 | 31.0 - 36.0 | [facility] | | | | | g/dL | COMMUNITY | | | | | | HOSPITAL | | | | | | LABORATORY | | + + + + + + | RDW-CV | 14.4 | 12.0 - 15.0 % | [facility] | | | | | | COMMUNITY | | | | | | HOSPITAL | | | | | | LABORATORY | | + + + + + + | Platelet | 163 | >140-<440 K/uL | [facility] | | | Count | | | COMMUNITY | | | | | | HOSPITAL | | | | | | LABORATORY | | + + + + + + | MPV | 11.1 | fL | [facility] | | | | | | COMMUNITY | | | | | | HOSPITAL | | | | | | LABORATORY | | + + + + + + + + | Specimen | + + | Blood | + + + + + + + | Performing | Address | City/State/Zipcode | Phone Number | | Organization | | | | + + + + + | [facility] | [address] | [place] [address] | [phone] | | HOSPITAL LABORATORY | | | | + + + + + VAS Carotid Duplex Bilateral (05/19/2018 8:37 AM PST) + + | Specimen | + + | | + + + + + | Narrative | Performed At | + + + | [address] | [facility] | | [place], [place] [address] | | | NAME: GERMAINE BARBOUR Jesus DATE: 05/19/2018 : | | | 1945 PT GENDER: F ROOM: IN Physician: ORALIA | | | ROQUE PID3: [id number] CC TO: MR#: | | | PROCEDURE: ULTRASOUND BILATERAL CAROTID DOPPLER | | | INDICATIONS: Stroke. COMPARISON: None. FINDINGS: RIGHT | | | CAROTID *All values are in the following format SYSTOLIC; DIASTOLIC* | | | Right CCA Proximal: 61 ; 12 cm/sec Right CCA Mid: 42 ; 11 cm/sec | | | Right CCA Distal: 54 ; 16 cm/sec Right ICA Proximal: 54 ; 14 | | | cm/sec Right ICA Mid: 51 ; 9 cm/sec Right ICA Distal: 47 ; 13 cm/sec | | | Right ECA Proximal: 42 ; 10 cm/sec Right Vertebral: 53 ; | | | Antegrade cm/sec RIGHT SYSTOLIC ICA/CCA Ratio: 1.0 RIGHT | | | PLAQUE MORPHOLOGY: Mild Plaque without significant stenosis. | | | LEFT CAROTID *All values are in the following format SYSTOLIC; | | | DIASTOLIC* Left CCA Proximal: 66 ; 16 cm/sec Left CCA Mid: 55 ; 13 | | | cm/sec Left CCA Distal: 48 ; 13 cm/sec Left ICA Proximal: 64 ; | | | 15 cm/sec Left ICA Mid: 61 ; 12 cm/sec Left ICA Distal: 63 ; 15 | | | cm/sec Left ECA Proximal: 40 ; 0cm/sec Left Vertebral: 46 ; | | | Retrograde cm/sec LEFT SYSTOLIC ICA/CCA Ratio: 1.3 LEFT PLAQUE | | | MORPHOLOGY: Mild plaque without significant stenosis. | | | Comments: There is mild plaque without significant stenosis in the | | | right and left carotid bifurcation. Retrograde flow left vertebral | | | artery with antegrade flow on the right. Right ICA diameter | | | reduction based on NASCET criteria: 16-49% Left ICA diameter | | | reduction based on NASCET criteria: 16-49% IMPRESSION: 1. | | | There is mild plaque in the carotid bifurcations bilaterally without | | | hemodynamically significant stenosis. 2. Both vertebral | | | arteries are patent, but there is retrograde flow in the right | | | vertebral artery. This may be secondary to a subclavian steal from a | | | proximal stenosis. Consider correlation with CT angiogram or MR | | | angiogram of the aortic arch and carotid arteries. Given the | | | patients history of stroke, recommend including intracranial CT or | | | MR angiography. NASCET Criteria - Degree of Stenosis Normal = | | | ICA PSV [ 125 cm/s; plaque none; ICA/CCA PSV Ratio [ 2.0; ICA EDV [ | | | 40 cm/s. [ 50 = ICA PSV [ 125 cm/s; plaque [ /=50; ICA/CCA PSV | | | Ratio [ 2.0; ICA EDV [ 40 cm/s. 50-69 = ICA PSV 125-230 cm/s; | | | plaque ] /= 50; ICA/CCA PSV Ratio 2.0-4.0; ICA EDV 40-100 cm/s. ] | | | /=70 but less than near occlusion = ICA PSV ] 230 cm/s; plaque ] /= | | | 50; ICA/CCA PSV Ratio ] 4.0; ICA EDV ] 100 cm/s. Near occlusion | | | = ICA PSV high, low, or undetectable; plaque visible; ICA/CCA PSV | | | Ratio variable; ICA EDV variable. Total occlusion = ICA PSV | | | undetectable; plaque visible, no detectable lumen; ICA/CCA PSV Ratio | | | not applicable; ICA EDV not applicable. Transcribed by: INDIRA at | | | 05/19/2018 3:20 PM at workstation [id number] | | + + + + + | Procedure Note | + + | Victor Hugo, Rad Results In - 05/19/2018 3:50 PM [facility] | | [address] [facility] | | [place], [place] [address] | | | | | | NAME: GERMAINE BARBOUR Jesus DATE: 05/19/2018 | | : 1945 PT GENDER: F ROOM: IN | | Physician: ORALIA NEVAREZ PID3: [id number] | | CC TO: MR#: | | | | | | PROCEDURE: ULTRASOUND BILATERAL CAROTID DOPPLER | | | | INDICATIONS: Stroke. | | | | COMPARISON: None. | | | | FINDINGS: | | RIGHT CAROTID | | *All values are in the following format SYSTOLIC; DIASTOLIC* | | Right CCA Proximal: 61 ; 12 cm/sec | | Right CCA Mid: 42 ; 11 cm/sec | | Right CCA Distal: 54 ; 16 cm/sec | | | | Right ICA Proximal: 54 ; 14 cm/sec | | Right ICA Mid: 51 ; 9 cm/sec | | Right ICA Distal: 47 ; 13 cm/sec | | | | Right ECA Proximal: 42 ; 10 cm/sec | | Right Vertebral: 53 ; Antegrade cm/sec | | | | RIGHT SYSTOLIC ICA/CCA Ratio: 1.0 | | RIGHT PLAQUE MORPHOLOGY: Mild Plaque without significant stenosis. | | | | LEFT CAROTID | | *All values are in the following format SYSTOLIC; DIASTOLIC* | | Left CCA Proximal: 66 ; 16 cm/sec | | Left CCA Mid: 55 ; 13 cm/sec | | Left CCA Distal: 48 ; 13 cm/sec | | | | | | Left ICA Proximal: 64 ; 15 cm/sec | | Left ICA Mid: 61 ; 12 cm/sec | | Left ICA Distal: 63 ; 15 cm/sec | | | | Left ECA Proximal: 40 ; 0cm/sec | | Left Vertebral: 46 ; Retrograde cm/sec | | | | LEFT SYSTOLIC ICA/CCA Ratio: 1.3 | | LEFT PLAQUE MORPHOLOGY: Mild plaque without significant stenosis. | | | | Comments: There is mild plaque without significant stenosis in the right and | | left carotid bifurcation. Retrograde flow left vertebral artery with | | antegrade flow on the right. | | | | Right ICA diameter reduction based on NASCET criteria: 16-49% | | Left ICA diameter reduction based on NASCET criteria: 16-49% | | | | IMPRESSION: | | 1. There is mild plaque in the carotid bifurcations bilaterally without | | hemodynamically significant stenosis. | | 2. Both vertebral arteries are patent, but there is retrograde flow in the | | right vertebral artery. This may be secondary to a subclavian steal from a | | proximal stenosis. Consider correlation with CT angiogram or MR angiogram of | | the aortic arch and carotid arteries. Given the patients history of stroke, | | recommend including intracranial CT or MR angiography. | | | | NASCET Criteria - Degree of Stenosis | | | | Normal = ICA PSV [ 125 cm/s; plaque none; ICA/CCA PSV Ratio [ 2.0; ICA EDV [ | | 40 cm/s. | | | | [ 50 = ICA PSV [ 125 cm/s; plaque [ /=50; ICA/CCA PSV Ratio [ 2.0; ICA EDV [ | | 40 cm/s. | | | | 50-69 = ICA PSV 125-230 cm/s; plaque ] /= 50; ICA/CCA PSV Ratio 2.0-4.0; ICA | | EDV 40-100 cm/s. | | ] /=70 but less than near occlusion = ICA PSV ] 230 cm/s; plaque ] /= 50; | | ICA/CCA PSV Ratio ] 4.0; ICA EDV ] 100 cm/s. | | | | Near occlusion = ICA PSV high, low, or undetectable; plaque visible; ICA/CCA | | PSV Ratio variable; ICA EDV variable. | | | | Total occlusion = ICA PSV undetectable; plaque visible, no detectable lumen; | | ICA/CCA PSV Ratio not applicable; ICA EDV not applicable. | | | | Transcribed by: INDIRA at 05/19/2018 3:20 PM | | | | at | | workstation [id number] | + + + +---------+ + + | Performing | Address | City/State/Zipcode | Phone Number | | Organization | | | | + +---------+ + + | [facility] | | | | + +---------+ + + ECHO Complete (05/19/2018 8:02 AM PST) + + | Specimen | + + | | + + + + + | Narrative | Performed At | + + + | Please see | [facility] | | scanned echo report. | | + + + + +---------+ + + | Performing | Address | City/State/Zipcode | Phone Number | | Organization | | | | + +---------+ + + | [facility] | | | | + +---------+ + + CBC no Differential (05/19/2018 4:50 AM PST) + + + + + + | Component | Value | Ref Range | Performed | Pathologist | | | | | At | Signature | + + + + + + | WBC | 7.0 | >4.5-<11.0 K/uL | [facility] | | | | | | [facility] | | | | [facility] | | | | | | LABORATORY | | + + + + + + | RBC | 4.11 (L) | 4.50 - 6.00 | [facility] | | | | | M/uL | COMM[facility] | | | | | | [facility] | | | | | | LABORATORY | | + + + + + + | Hemoglobin | 11.4 (L) | >12.4-<15.7 | [facility] | | | | | g/dL | [facility] | | | | | | [facility] | | | | | | LABORATORY | | + + + + + + | Hematocrit | 35.8 (L) | >37.7-<47.0 % | [facility] | | | | | | [facility] | | | | | | [facility] | | | | | | LABORATORY | | + + + + + + | MCV | 87.1 | 78.0 - 98.0 fL | [facility] | | | | | | [facility] | | | | | | [facility] | | | | | | LABORATORY | | + + + + + + | MCH | 27.7 | 26.0 - 32.0 pg | [facility] | | | | | | [facility] | | | | | | [facility] | | | | | | LABORATORY | | + + + + + + | MCHC | 31.8 | 31.0 - 36.0 | [facility] | | | | | g/dL | [facility] | | | | | | [facility]PITAL | | | | | | LABORATORY | | + + + + + + | RDW-CV | 14.5 | 12.0 - 15.0 % | [facility] | | | | | | [facility] | | | | | | [facility] | | | | | | LABORATORY | | + + + + + + | Platelet | 175 | >140-<440 K/uL | [facility] | | | Count | | | COMM[facility]ITY | | | | | | HOSPITAL | | | | | | LABORATORY | | + + + + + + | MPV | 11.2 | fL | [facility] | | | | | | COMM[facility] | | | | | | [facility] | | | | | | LABORATORY | | + + + + + + + + | Specimen | + + | Blood | + + + + + + + | Performing | Address | City/State/Zipcode | Phone Number | | Organization | | | | + + + + + | [facility] | [address] | [place] [address] | [phone] | | HOSPITAL LABORATORY | | | | + + + + + Basic Metabolic Panel (05/19/2018 4:50 AM PST) + + + + + + | Component | Value | Ref Range | Performed | Pathologist | | | | | At | Signature | + + + + + + | Na | 145 (H) | 135 - 144 | [facility] | | | | | mmol/L | [facility] | [facility] | | | | | | LAB[facility]ATORY | | + + + + + + | K | 2.9 (L) | >3.3-<5.8 | [facility] | | | | | mmol/L | [facility] | | | | [facility] | | | | | | LAB[facility]ATORY | | + + + + + + | Cl | 107 | >95-<108 mmol/L | [facility] | | | | | | [facility] | [facility] | | | | | | [facility]ORY | | + + + + + + | CO2 | 28 | 23 - 34 mmol/L | [facility] | | | | | [facility] | [facility] | | | | | | [facility]ORY | | + + + + + + | Anion Gap | 10 | 7 - 16 mmol/L | [facility] | | | | | | [facility] | [facility] | | | | | | [facility]ORY | | + + + + + + | Glucose | 89 | 70 - 110 mg/dL | [facility] | | | | | | [facility] | [facility] | | | | | | LABORATORY | | + + + + + + | BUN | 18 | 5 - 26 mg/dL | [facility] | | | | | | [facility] | | | | | | LAB[facility]ATORY | | + + + + + + | Creatinine | 0.76 | >0.60-<1.30 | [facility] | | | | | mg/dL | [facility] | | | | | | [facility] | | | | | | LABORATORY | | + + + + + + | eGFR if not | >60Comment: GLOMERULAR | >=60 | [facility] | | | | FILTRATION | mL/min/1.73m2 | [facility] | | | [facility] | RATE,ESTIMATED | | HOSPITAL | | | | mL/min/1.43f2Bdyh than | | LABORATORY | | | | 59 Chronic kidney | | | | | | disease,if found over [...] + + + + | Calcium | 7.9 (L) | 8.3 - 10.0 | [facility] | | | | | mg/dL | [facility] | | | | | | HOSPITAL | | | | | | LABORATORY | | + + + + + + | BUN/Creatin | 23.7 | 7.0 - 24.0 | [facility] | | | ine Ratio | | | [facility]ITY | | | | | | HOSPITAL | | | | | | LABORATORY | | + + + + + + + + | Specimen | + + | Blood | + + + + + | Narrative | Performed At | + + + | Sulfasalazine and/or Sulfapyridine may interfere with this test and | [facility] | | cause inaccurate results (Ammonia, AST, ALT, and Glucose). It is | COMMUNITY | | recommended that specimen collection should occur prior to | HOSPITAL | | administration of these two drugs. | LABORATORY | + + + + + + + + | Performing | Address | City/State/Zipcode | Phone Number | | Organization | | | | + + + + + | [facility] | [address] | [place] [address] | [phone] | | HOSPITAL LABORATORY | | | | + + + + + Magnesium (05/19/2018 4:50 AM PST) + +-------+ + + + | Component | Value | Ref Range | Performed | Pathologist | | | | | At | Signature | + +-------+ + + + | Magnesium | 1.8 | 1.8 - 2.4 mg/dL | [facility] | | | | | | COMMUNITY | | | | | | HOSPITAL | | | | | | LABORATORY | | + +-------+ + + + + + | Specimen | + + | Blood | + + + + + + + | Performing | Address | City/State/Zipcode | Phone Number | | Organization | | | | + + + + + | [facility] | [address] | [place] [address] | [phone] | | HOSPITAL LABORATORY | | | | + + + + + Drugs of Abuse, Screen, Urine (05/18/2018 7:21 PM PST) + + + + + + | Component | Value | Ref Range | Performed | Pathologist | | | | | At | Signature | + + + + + + | Barbiturate | Negative | Negative | [facility] | | | s Screen, | | | COMMUNITY | | | Urine | | | HOSPITAL | | | | | | LABORATORY | | + + + + + + | Benzodiazep | Negative | Negative | [facility] | | | ermelinda | | | COMMUNITY | | | Screen, | | | HOSPITAL | | | Urine | | | LABORATORY | | + + + + + + | Cannabinoid | Presumptive Positive (A) | Negative | [facility] | | | s Screen, | | | COMMUNITY | | | Urine | | | HOSPITAL | | | | | | LABORATORY | | + + + + + + | Cocaine | Negative | Negative | [facility] | | | Screen, | | | COMMUNITY | | | Urine | | | HOSPITAL | | | | | | LABORATORY | | + + + + + + | Methadone | Negative | Negative | [facility] | | | Screen, | | | COMMUNITY | | | Urine | | | HOSPITAL | | | | | | LABORATORY | | + + + + + + | Opiates | Negative | Negative | [facility] | | | Screen, | | | COMMUNITY | | | Urine | | | HOSPITAL | | | | | | LABORATORY | | + + + + + + | Phencyclidi | Negative | Negative | [facility] | | | ne Screen, | | | COMMUNITY | | | Urine | | | HOSPITAL | | | | | | LABORATORY | | + + + + + + | Methampheta | Negative | Negative | [facility] | | | mine | | | COMMUNITY | | | Screen, | | | HOSPITAL | | | Urine | | | LABORATORY | | + + + + + + | Amphetamine | Negative | Negative | [facility] | | | Screen, | | | COMMUNITY | | | Urine | | | HOSPITAL | | | | | | LABORATORY | | + + + + + + | Tricyclic | Negative | Negative | [facility] | | | Antidepress | | | COMMUNITY | | | ants | | | HOSPITAL | | | Screen, | | | LABORATORY | | | Urine | | | | | + + + + + + | Oxycodone | Negative | Negative | [facility] | | | Screen, | | | COMMUNITY | | | Urine | | | HOSPITAL | | | | | | LABORATORY | | + + + + + + | Propoxyphen | Negative | Negative | [facility] | | | e Screen, | | | COMMUNITY | | | Urine | | | HOSPITAL | | | | | | LABORATORY | | + + + + + + | Buprenorphi | Negative | Negative | [facility] | | | ne Screen, | | | COMMUNITY | | | Urine | | | HOSPITAL | | | | | | LABORATORY | | + + + + + + + + | Specimen | + + | Urine | + + + + + + + | Performing | Address | City/State/Zipcode | Phone Number | | Organization | | | | + + + + + | [facility] | [address] | [place] [address] | [phone] | | HOSPITAL LABORATORY | | | | + + + + + XR Hand Right 3 + Vw (05/18/2018 4:55 PM PST) + + | Specimen | + + | | + + + + + | Narrative | Performed At | + + + | [address] | [facility] | | [place], [place] [address] | | | NAME: ATNONIETTAKary BLANKENSHIPGERMAINE DATE: 05/18/2018 : | | | 1945 PT GENDER: F ROOM: ER Physician: ORALIA | | | ROQUE PID3: [id number] CC TO: MR#: | | | PROCEDURE: RIGHT HAND - THREE VIEWS INDICATIONS: EXTREMITY | | | WEAKNESS COMPARISON: None. FINDINGS: Bones are severely | | | osteopenic. Central erosion at the third proximal phalanx with | | | marginal osteophytes. Multifocal interphalangeal degenerative joint | | | space loss with marginal osteophytes. Degeneration at the first CMC | | | and triscaphe articulations. Scattered calcified atherosclerosis. | | | IMPRESSION: 1. Erosive arthropathy noted at the third PIP | | | and fifth DIP. 2. Bones are severely osteopenic. 3. 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 | | | Next line scattered vascular calcifications and soft tissue swelling. | | | at | | | workstation [id number] | | + + + + + | Procedure Note | + + | Victor Hugo, Javier Results In - 05/18/2018 5:05 PM [facility] | | [address] [facility] | | [place], [place] [address] | | | | | | NAME: ANTONIETTA BLANKENSHIPGERMAINE DATE: 05/18/2018 | | : 1945 PT GENDER: F ROOM: ER | | Physician: ORALIA NEVAREZ PID3: [id number] | | CC TO: MR#: | | | | | | PROCEDURE: RIGHT HAND - THREE VIEWS | | | | INDICATIONS: EXTREMITY WEAKNESS | | | | COMPARISON: None. | | | | FINDINGS: | | | | Bones are severely osteopenic. Central erosion at the third proximal phalanx | | with marginal osteophytes. Multifocal interphalangeal degenerative joint | | space loss with marginal osteophytes. Degeneration at the first CMC and | | triscaphe articulations. Scattered calcified atherosclerosis. | | | | | | | | IMPRESSION: | | 1. Erosive arthropathy noted at the third PIP and fifth DIP. | | 2. Bones are severely osteopenic. | | 3. Multifocal osteoarthritic degenerative changes most notable at the first | | CMC. Next line scattered vascular calcifications and soft tissue swelling. | | | | at workstation | | [id number] [id number] | | | | | | | | | | | | | | | | | | | + + + +---------+ + + | Performing | Address | City/State/Zipcode | Phone Number | | Organization | | | | + +---------+ + + | [facility] | | | | + +---------+ + + CT Head wo Contrast (05/18/2018 4:54 PM PST) + + | Specimen | + + | | + + + + + | Narrative | Performed At | + + + | [address] | [facility] | | [place], [place] [address] | | | NAME: GERMAINE BARBOUR Jesus DATE: 05/18/2018 : | | | 1945 PT GENDER: F ROOM: ER Physician: ORALIA | | | ROQUE PID3: [id number] CC TO: MR#: | | | This report includes an addendum and supersedes previous | | | reports for this exam. ORIGINAL REPORT | | | PROCEDURE: CT BRAIN WITHOUT CONTRAST INDICATIONS: EXTREMITY | | | WEAKNESS COMPARISON: None. TECHNIQUE: Thin-section images | | | were obtained at the skull base, and thin-section images were | | | obtained through the brain without intravenous contrast. One or | | | more of the following dose lowering techniques was utilized: | | | Automated exposure control, adjustment of the mA and/or kV | | | according to patient size, or use of iterative reconstruction. | | | FINDINGS: CEREBRUM: Focal hypoattenuation involving the left | | | basal ganglia with small central focus of increased density. | | | Multiple foci of hypoattenuation in the white matter are nonspecific | | | but most consistent with moderate chronic microvascular ischemic | | | disease. There is mild diffuse cerebral volume loss. CEREBELLUM: | | | Within normal limits. BRAIN STEM: Within normal limits. | | | VENTRICLES: Normal size and configuration. No hydrocephalus or | | | intraventricular mass. EXTRA-AXIAL SPACES: No acute abnormal | | | fluid collection or mass. SINUSES: Visualized paranasal sinuses | | | are unremarkable. The mastoid air cells are clear. SKULL: No | | | acute calvarial abnormality. ORBITS: Visualized orbits are | | | unremarkable. SOFT TISSUES: Visualized extracranial soft tissues | | | are unremarkable. IMPRESSION: Focal lucency involving the left | | | basal ganglia likely corresponds to a completed infarct. Comparison | | | to prior imaging would be helpful if available. Further evaluation | | | with MRI if indicated. at workstation [id number] ADDENDUM #1 | | | Add communication: Communication: Relayed findings to | | | Roque on 05/18/18 at 9129. Gave her contact info for Dr. Nieves./earle | | | Transcribed by: EARLE at 05/18/2018 5:37 PM at workstation [id number] | | + + + + + | Procedure Note | + + | Victor Hugo, Rad Results In - 05/18/2018 6:05 PM [facility] | | [address] [facility] | | [place], [place] [address] | | | | | | NAME: GERMAINE BARBOUR DATE: 05/18/2018 | | : 1945 PT GENDER: F ROOM: ER | | Physician: ORALIA NEVAREZ PID3: [id number] | | CC TO: MR#: | | | | | | | | This report includes an addendum and supersedes previous reports for this | | exam. | | | | ORIGINAL REPORT | | | | | | PROCEDURE: CT BRAIN WITHOUT CONTRAST | | | | INDICATIONS: EXTREMITY WEAKNESS | | | | COMPARISON: None. | | | | TECHNIQUE: Thin-section images were obtained at the skull base, and | | thin-section images were obtained through the brain without intravenous | | contrast. One or more of the following dose lowering techniques was | | utilized: Automated exposure control, adjustment of the mA and/or kV | | according to patient size, or use of iterative reconstruction. | | | | FINDINGS: | | | | CEREBRUM: Focal hypoattenuation involving the left basal ganglia with small | | central focus of increased density. Multiple foci of hypoattenuation in the | | white matter are nonspecific but most consistent with moderate chronic | | microvascular ischemic disease. There is mild diffuse cerebral volume loss. | | | | CEREBELLUM: Within normal limits. | | | | BRAIN STEM: Within normal limits. | | | | VENTRICLES: Normal size and configuration. No hydrocephalus or | | intraventricular mass. | | | | EXTRA-AXIAL SPACES: No acute abnormal fluid collection or mass. | | | | SINUSES: Visualized paranasal sinuses are unremarkable. The mastoid air | | cells are clear. | | | | SKULL: No acute calvarial abnormality. | | | | ORBITS: Visualized orbits are unremarkable. | | | | SOFT TISSUES: Visualized extracranial soft tissues are unremarkable. | | | | IMPRESSION: | | Focal lucency involving the left basal ganglia likely corresponds to a | | completed infarct. Comparison to prior imaging would be helpful if available. | | Further evaluation with MRI if indicated. | | | | at workstation | | [id number] | | | | ADDENDUM #1 | | | | | | Add communication: | | Communication: Relayed findings to Dr. Nevarez on 05/18/18 at 1736. Gave her | | contact info for Dr. Nieves./ | | | | Transcribed by: at 05/18/2018 5:37 PM | | | | at workstation | | [id number] | + + + +---------+ + + | Performing | Address | City/State/Zipcode | Phone Number | | Organization | | | | + +---------+ + + | [facility] | | | | + +---------+ + + Culture, Urine (05/18/2018 4:52 PM PST) + + + + + + | Component | Value | Ref Range | Performed | Pathologist | | | | | At | Signature | + + + + + + | Culture | >100,000 CFU/ml | | [facility] | | | | Escherichia coli | | COMMUNITY | | | | | | HOSPITAL | | | | | | LABORATORY | | + + + + + + + + | Specimen | + + | Urine - Urine | | specimen obtained by | | clean catch | | procedure (specimen) | + + + + +--------+ + | Organism | Antibiotic | Method | Susceptibility | + + +--------+ + | Escherichia coli | Amikacin | | <=16 ug/mL: | | | | | Sensitive | + + +--------+ + | Escherichia coli | Amoxicillin + | | <=8/4 ug/mL: | | | Clavulanate | | Sensitive | + + +--------+ + | Escherichia coli | Ampicillin + | | <=8/4 ug/mL: | | | Sulbactam | | Sensitive | + + +--------+ + | Escherichia coli | Ampicillin | | <=8 ug/mL: | | | | | Sensitive | + + +--------+ + | Escherichia coli | Cefazolin | | <=8 ug/mL: | | | | | Sensitive | + + +--------+ + | Escherichia coli | Cefepime | | <=4 ug/mL: | | | | | Sensitive | + + +--------+ + | Escherichia coli | Cefotaxime | | <=2 ug/mL: | | | | | Sensitive | + + +--------+ + | Escherichia coli | Ceftazidime | | <=1 ug/mL: | | | | | Sensitive | + + +--------+ + | Escherichia coli | Ceftriaxone | | <=8 ug/mL: | | | | | Sensitive | + + +--------+ + | Escherichia coli | Cefuroxime | | <=4 ug/mL: | | | | | Sensitive | + + +--------+ + | Escherichia coli | Ciprofloxacin | | >4 ug/mL: | | | | | Resistant | + + +--------+ + | Escherichia coli | Ertapenem | | <=2 ug/mL: | | | | | Sensitive | + + +--------+ + | Escherichia coli | Gentamicin | | <=4 ug/mL: | | | | | Sensitive | + + +--------+ + | Escherichia coli | Imipenem | | <=1 ug/mL: | | | | | Sensitive | + + +--------+ + | Escherichia coli | Levofloxacin | | >4 ug/mL: | | | | | Resistant | + + +--------+ + | Escherichia coli | Meropenem | | <=1 ug/mL: | | | | | Sensitive | + + +--------+ + | Escherichia coli | Nitrofurantoin | | <=32 ug/mL: | | | | | Sensitive | + + +--------+ + | Escherichia coli | Piperacillin + | | <=16 ug/mL: | | | Tazobactam | | Sensitive | + + +--------+ + | Escherichia coli | Tetracycline | | <=4 ug/mL: | | | | | Sensitive | + + +--------+ + | Escherichia coli | Ticarcillin + | | <=16 ug/mL: | | | Clavulanic Acid | | Sensitive | + + +--------+ + | Escherichia coli | Trimethoprim + | | ug/mL: Resistant | | | Sulfamethoxazole | | | + + +--------+ + + + + + + | Performing | Address | City/State/Zipcode | Phone Number | | Organization | | | | + + + + + | [facility] | [address] | [place] [address] | [phone] | | HOSPITAL LABORATORY | | | | + + + + + Urinalysis With Microscopic (05/18/2018 4:03 PM PST) + + + + + + | Component | Value | Ref Range | Performed | Pathologist | | | | | At | Signature | + + + + + + | Color | Yellow | Straw, Yellow, | [facility] | | | | | Light Yellow | COMMUNITY | | | | | | HOSPITAL | | | | | | LABORATORY | | + + + + + + | Clarity | Clear | Clear | [facility] | | | | | | COMMUNITY | | | | | | HOSPITAL | | | | | | LABORATORY | | + + + + + + | pH, Urine | 5.5 | 5.0 - 8.0 | [facility] | | | | | | COMMUNITY | | | | | | HOSPITAL | | | | | | LABORATORY | | + + + + + + | Specific | 1.025 | 1.005 - 1.030 | [facility] | | | [place] | | | COMMUNITY | | | | | | HOSPITAL | | | | | | LABORATORY | | + + + + + + | Protein, | 30 mg/dL (A) | Negative | [facility] | | | Urine | | | COMMUNITY | | | | | | HOSPITAL | | | | | | LABORATORY | | + + + + + + | Blood, | Negative | Negative, Trace | [facility] | | | Urine | | | COMMUNITY | | | | | | HOSPITAL | | | | | | LABORATORY | | + + + + + + | Glucose, | Negative | Negative | [facility] | | | Urine | | | COMMUNITY | | | | | | HOSPITAL | | | | | | LABORATORY | | + + + + + + | Ketones, | Negative | Negative | [facility] | | | Urine | | | COMMUNITY | | | | | | HOSPITAL | | | | | | LABORATORY | | + + + + + + | Bilirubin, | Negative | Negative | [facility] | | | Urine | | | COMMUNITY | | | | | | HOSPITAL | | | | | | LABORATORY | | + + + + + + | Nitrite, | Negative | Negative | [facility] | | | Urine | | | COMMUNITY | | | | | | HOSPITAL | | | | | | LABORATORY | | + + + + + + | Leukocyte | Trace (A) | Negative | [facility] | | | Esterase, | | | COMMUNITY | | | Urine | | | HOSPITAL | | | | | | LABORATORY | | + + + + + + | Urobilinoge | 2.0 E.U./dL (A) | 0.2 E.U./dL, | [facility] | | | n, Urine | | 1.0 E.U./dL | COMM[facility] | | | | | | HOSPITAL | | | | | | LABORATORY | | + + + + + + | WBC UA | 6-10 (A) | None Seen /HPF | [facility] | | | | | | COMMUNITY | | | | | | HOSPITAL | | | | | | LABORATORY | | + + + + + + | RBC UA | 0-2 (A) | None Seen /HPF | [facility] | | | | | | COMMUNITY | | | | | | HOSPITAL | | | | | | LABORATORY | | + + + + + + | SQUAMOUS | Many (A) | None Seen, | [facility] | | | EPITHELIAL | | Trace, Few /LPF | [facility] | | | UA | | | HOSPITAL | | | | | | LABORATORY | | + + + + + + | BACTERIA UA | 4+ (A) | None Seen, | [facility] | | | | | Trace /HPF | COMM[facility]ITY | | | | | | HOSPITAL | | | | | | LABORATORY | | + + + + + + + + | Specimen | + + | Urine | + + + + + + + | Performing | Address | City/State/Zipcode | Phone Number | | Organization | | | | + + + + + | [facility] | [address] | [place] [address] | [phone] | | HOSPITAL LABORATORY | | | | + + + + + ECG 12 lead (05/18/2018 3:46 PM PST) + + + | Narrative | Performed At | + + + | | | + + + Lactic Acid (05/18/2018 3:35 PM PST) + +-------+ + + + | Component | Value | Ref Range | Performed | Pathologist | | | | | At | Signature | + +-------+ + + + | Lactate | 1.7 | >0.0-<2.0 | [facility] | | | | | mmol/L | COMMUNITY | | | | | | HOSPITAL | | | | | | LABORATORY | | + +-------+ + + + + + | Specimen | + + | Blood | + + + + + + + | Performing | Address | City/State/Zipcode | Phone Number | | Organization | | | | + + + + + | [facility] | [address] | [place] [address] | [phone] | | HOSPITAL LABORATORY | | | | + + + + + XR Chest AP Portable (05/18/2018 3:34 PM PST) + + | Specimen | + + | | + + + + + | Narrative | Performed At | + + + | [address] | [facility] | | [place], [place] [address] | | | NAME: GERMAINE BARBOUR DATE: 05/18/2018 : | | | 1945 PT GENDER: F ROOM: ER Physician: ORALIA | | | ROQUE PID3: [id number] CC TO: MR#: | | | PROCEDURE: AP PORTABLE CHEST X-RAY INDICATION: | | | extremity weakness COMPARISON: None. FINDINGS: SUPPORT | | | DEVICES: None. HEART: Enlarged. Post-CABG. Sternotomy wires | | | intact. MEDIASTINUM: Normal mediastinal contours without | | | radiographic evidence of lymphadenopathy. LUNGS: Clear. No | | | focal consolidation. No suspicious lung nodules. PLEURAL SPACES: | | | No pleural effusion or pneumothorax. BONES: No acute or | | | suspicious osseous abnormality. IMPRESSION: No radiographic | | | evidence of acute cardiopulmonary disease. at workstation [id number] | | | | | + + + + + | Procedure Note | + + | Victor Hugo, Rad Results In - 05/18/2018 3:50 PM [facility] | | [address] [facility] | | [place], [place] [address] | | | | | | NAME: GERMAINE BARBOUR DATE: 05/18/2018 | | : 1945 PT GENDER: F ROOM: ER | | Physician: ORALIA NEVAREZ PID3: [id number] | | CC TO: MR#: | | | | | | PROCEDURE: AP PORTABLE CHEST X-RAY | | | | INDICATION: extremity weakness | | | | COMPARISON: None. | | | | FINDINGS: | | | | SUPPORT DEVICES: None. | | | | HEART: Enlarged. Post-CABG. Sternotomy wires intact. | | | | MEDIASTINUM: Normal mediastinal contours without radiographic evidence of | | lymphadenopathy. | | | | LUNGS: Clear. No focal consolidation. No suspicious lung nodules. | | | | PLEURAL SPACES: No pleural effusion or pneumothorax. | | | | BONES: No acute or suspicious osseous abnormality. | | | | IMPRESSION: | | No radiographic evidence of acute cardiopulmonary disease. | | | | at | | workstation [id number] | | | | | | | | | | | | | | | | | | | | | | | | | + + + +---------+ + + | Performing | Address | City/State/Zipcode | Phone Number | | Organization | | | | + +---------+ + + | [facility] | | | | + +---------+ + + Ethanol (05/18/2018 3:11 PM PST) + + + + + + | Component | Value | Ref Range | Performed | Pathologist | | | | | At | Signature | + + + + + + | ALCOHOL, | <3Comment: To convert to | 0 - 3 mg/dL | [facility] | | | SERUM/PLASM | % move the decimal 3 | | COMMUNITY | | | A | spaces to the left. | | HOSPITAL | | | | | | LABORATORY | | + + + + + + + + | Specimen | + + | Blood | + + + + + + + | Performing | Address | City/State/Zipcode | Phone Number | | Organization | | | | + + + + + | [facility] | [address] | [place] [address] | [phone] | | HOSPITAL LABORATORY | | | | + + + + + Troponin I (05/18/2018 3:11 PM PST) + +-------+ + + + | Component | Value | Ref Range | Performed | Pathologist | | | | | At | Signature | + +-------+ + + + | Troponin I | 0.030 | 0.000 - 0.090 | [facility] | | | | | ng/mL | COMMUNITY | | | | | | HOSPITAL | | | | | | LABORATORY | | + +-------+ + + + + + | Specimen | + + | Blood | + + + + + | Narrative | Performed At | + + + | 0.1-0.5 ng/mL Borderline In patients with unstable angina or | [facility] | | non-Q-wave myocardial infarction, troponin levels above 0.1 ng/mL | [facility] | | within the first 24 hours are at higher risk of or ME at 48 | HOSPITAL | | hours and 14 days than patients whose cardiac troponin-I levels were | LABORATORY | | below 0.1 ng/mL. Evaluate patient results by looking for a rise and | | | fall in troponin-I levels over time. >0.5 ng/mL Consistent with | | | acute myocardial infarction (AMI) | | + + + + + + + + | Performing | Address | City/State/Zipcode | Phone Number | | Organization | | | | + + + + + | [facility] | [address] | [place] [address] | [phone] | | HOSPITAL LABORATORY | | | | + + + + + B Type Natriuretic Peptide (05/18/2018 3:11 PM PST) + + + + + + | Component | Value | Ref Range | Performed | Pathologist | | | | | At | Signature | + + + + + + | NT-proBNP | 1,571 (H) | 0 - 125 pg/mL | [facility] | | | | | | COMMUNITY | | | | | | HOSPITAL | | | | | | LABORATORY | | + + + + + + + + | Specimen | + + | Blood | + + + + + + + | Performing | Address | City/State/Zipcode | Phone Number | | Organization | | | | + + + + + | [facility] | [address] | [place] [address] | [phone] | | HOSPITAL LABORATORY | | | | + + + + + TSH (05/18/2018 3:11 PM PST) + +-------+ + + + | Component | Value | Ref Range | Performed | Pathologist | | | | | At | Signature | + +-------+ + + + | TSH | 0.499 | 0.358 - 3.740 | [facility] | | | | | uIU/mL | COMMUNITY | | | | | | HOSPITAL | | | | | | LABORATORY | | + +-------+ + + + + + | Specimen | + + | Blood | + + + + + | Narrative | Performed At | + + + | Biotin in specimens taken from patients on high-dose biotin therapy | [facility] | | or supplements may interfere with this test and cause inaccurate test | [facility] | | results. It is recommended that for patients receiving therapy with | HOSPITAL | | high biotin doses (> 5mg/day), no laboratory test specimen should be | LABORATORY | | collected until at least eight hours after the last biotin | | | administration. | | + + + + + + + + | Performing | Address | City/State/Zipcode | Phone Number | | Organization | | | | + + + + + | [facility] | [address] | [place] [address] | [phone] | | HOSPITAL LABORATORY | | | | + + + + + Lipase (05/18/2018 3:11 PM PST) + +-------+ + + + | Component | Value | Ref Range | Performed | Pathologist | | | | | At | Signature | + +-------+ + + + | Lipase | 98 | 73 - 393 U/L | [facility] | | | | | | COMMUNITY | | | | | | HOSPITAL | | | | | | LABORATORY | | + +-------+ + + + + + | Specimen | + + | Blood | + + + + + + + | Performing | Address | City/State/Zipcode | Phone Number | | Organization | | | | + + + + + | [facility] | [address] | [place] [address] | [phone] | | HOSPITAL LABORATORY | | | | + + + + + Comprehensive Metabolic Panel (05/18/2018 3:11 PM PST) + + + + + + | Component | Value | Ref Range | Performed | Pathologist | | | | | At | Signature | + + + + + + | Na | 146 (H) | 135 - 144 | [facility] | | | | | mmol/L | COMMUNITY | | | | | | HOSPITAL | | | | | | LABORATORY | | + + + + + + | K | 2.4 (LL) | >3.3-<5.8 | [facility] | | | | | mmol/L | COMM[facility]ITY | | | | | | HOSPITAL | | | | | | LABORATORY | | + + + + + + | Cl | 106 | >95-<108 mmol/L | [facility] | | | | | | COMMUNITY | | | | | | HOSPITAL | | | | | | LABORATORY | | + + + + + + | CO2 | 31 | 23 - 34 mmol/L | [facility] | [facility] | | | | | | [facility] | | + + + + + + | Anion Gap | 9 | 7 - 16 mmol/L | [facility] | [facility] | | | | | | [facility] | | + + + + + + | Glucose | 118 (H) | 70 - 110 mg/dL | [facility] | [facility] | | | | | | [facility]ORY | | + + + + + + | BUN | 21 | 5 - 26 mg/dL | [facility] | | | | | [facility] | [facility] | | | | | | LAB[facility]ATORY | | + + + + + + | Creatinine | 0.98 | >0.60-<1.30 | [facility] | | | | | mg/dL | [facility] [facility] | | | | | | LABORATORY | | + + + + + + | eGFR if not | 56 (L)Comment: | >=60 | [facility] | | | | GLOMERULAR FILTRATION | mL/min/1.73m2 | [facility] | | | [place] | RATE,ESTIMATED | | HOSPITAL | | | | mL/min/1.47h1Vjpk than | | LABORATORY | | | | 60 Chronic kidney | | | | | | disease,if found over [...] + + + + | Calcium | 8.2 (L) | 8.3 - 10.0 | [facility] | | | | | mg/dL | [facility] | | | [facility] | | | | | | LABORATORY | | + + + + + + | Albumin | 3.1 | 3.0 - 4.5 g/dL | [facility] | | | | | | [facility] | [facility] | | | | | | LABORATORY | | + + + + + + | Bilirubin | 0.4 | 0.0 - 1.0 mg/dL | [facility] | | | Total | | | [facility] | | | | | | LABORATORY | | + + + + + + | Total | 6.6 | 6.6 - 8.5 g/dL | [facility] | | | Protein | | | [facility] | | [facility] | | [facility] | | | | | | LABORATORY | | + + + + + + | AST | 22 | 16 - 38 U/L | [facility] | | | | | | [facility] | | | | | | LABORATORY | | + + + + + + | ALT | 14 (L) | 18 - 63 U/L | [facility] | | | | | | [facility] | | | | | | LABORATORY | | + + + + + + | Alkaline | 74 | 50 - 136 U/L | [facility] | | | Phosphatase | | | [facility] | | | [facility] | | [facility] | | | | | | LABORATORY | | + + + + + + | Globulin | 3.5 | 1.5 - 3.5 g/dL | [facility] | | | | | | [facility] | [facility] | | | | | | LABORATORY | | + + + + + + | Albumin/Shirin | 0.9 (L) | 1.0 - 2.5 | [facility] | | | bulin Ratio | | | [facility] | | | [facility] | | [facility] | | | | | | LABORATORY | | + + + + + + | BUN/Creatin | 21.4 | 7.0 - 24.0 | [facility] | | | ine Ratio | | | [facility] | | | [facility] | | [facility] | | | | | | LABORATORY | | + + + + + + + + | Specimen | + + | Blood | + + + + + | Narrative | Performed At | + + + | Sulfasalazine and/or Sulfapyridine may interfere with this test and | [facility] | | cause inaccurate results (Ammonia, AST, ALT, and Glucose). It is | [facility] | | recommended that specimen collection should occur prior to | HOSPITAL | | administration of these two drugs. | LABORATORY | + + + + + + + + | Performing | Address | City/State/Zipcode | Phone Number | | Organization | | | | + + + + + | [facility] | [address] | [place] [address] | [phone] | | HOSPITAL LABORATORY | | | | + + + + + CBC with Differential (05/18/2018 3:11 PM PST) + + + + + + | Component | Value | Ref Range | Performed | Pathologist | | | | | At | Signature | + + + + + + | WBC | 7.6 | >4.5-<11.0 K/uL | [facility] | | | | | | [facility] | | [facility] | | | | | | LABORATORY | | + + + + + + | RBC | 4.23 (L) | 4.50 - 6.00 | [facility] | | | | | M/uL | [facility] | | | | | | [facility] | | | | | | LABORATORY | | + + + + + + | Hemoglobin | 11.9 (L) | >12.4-<15.7 | [facility] | | | | | g/dL | [facility] | | | | | | [facility] | | | | | | LABORATORY | | + + + + + + | Hematocrit | 37.2 (L) | >37.7-<47.0 % | [facility] | | | | | | [facility] | | [facility] | | | | | | LABORATORY | | + + + + + + | MCV | 87.9 | 78.0 - 98.0 fL | [facility] | | | | | | [facility] | [facility] | | | | | | LABORATORY | | + + + + + + | MCH | 28.1 | 26.0 - 32.0 pg | [facility] | | | | | | [facility] | | [facility] | | | | | | LABORATORY | | + + + + + + | MCHC | 32.0 | 31.0 - 36.0 | [facility] | | | | | g/dL | [facility] | | | | | | [facility] | | | | | | LABORATORY | | + + + + + + | RDW-CV | 14.6 | 12.0 - 15.0 % | [facility] | | | | | | [facility] | [facility] | | | | | | LABORATORY | | + + + + + + | Platelet | 196 | >140-<440 K/uL | [facility] | | | Count | | | [facility] | | | | | | [facility] | | | | | | LABORATORY | | + + + + + + | MPV | 11.3 | fL | [facility] | | | | | | [facility] | | | [facility] | | | | | | LABORATORY | | + + + + + + | % | 67.7 | 37.0 - 80.0 % | [facility] | | | Neutrophils | | | [facility] | | | | | | [facility] | | | | | | LABORATORY | | + + + + + + | % | 24.3 | 10.0 - 50.0 % | [facility] | | | Lymphocytes | | | COMM[facility] | | | | | | [facility] | | | | | | LABORATORY | | + + + + + + | % Monocytes | 6.1 | 0.0 - 12.0 % | [facility] | | | | | | [facility] | | | | [facility] | | | | | | LABORATORY | | + + + + + + | % | 1.1 | 0.0 - 7.0 % | [facility] | | | Eosinophils | | | [facility] | | | | | | [facility] | | | | | | LABORATORY | | + + + + + + | % Basophils | 0.5 | 0.0 - 2.5 % | [facility] | | | | | | [facility] | | | | [facility] | [facility] | | | | | | LABORATORY | | + + + + + + | Absolute | 5.15 | 1.67 - 8.80 | [facility] | | | Neutrophils | | K/uL | [facility] | | | | | | [facility] | | | | | | LABORATORY | | + + + + + + | Absolute | 1.85 | 0.60 - 3.40 | [facility] | | | Lymphocytes | | K/uL | [facility] | | | | | | [facility] | | | | | | LABORATORY | | + + + + + + | Absolute | 0.46 | 0.00 - 4.00 | [facility] | | | Monocytes | | K/uL | [facility] | | | | | | [facility] | | | | | | LABORATORY | | + + + + + + | Absolute | 0.08 | 0.00 - 2.50 | [facility] | | | Eosinophils | | K/uL | [facility] | | | | | | [facility] | | | | | | LABORATORY | | + + + + + + | Absolute | 0.04 | 0.00 - 0.20 | [facility] | | | Basophils | | K/uL | COMM[facility] | | | | | | [facility] | | | | | | LABORATORY | | + + + + + + + + | Specimen | + + | Blood | + + + + + + + | Performing | Address | City/State/Zipcode | Phone Number | | Organization | | | | + + + + + | [facility] | [address] | [place] [address] | [phone] | | HOSPITAL LABORATORY | | | | + + + + + documented in this encounter Visit Diagnoses + + | Diagnosis | + + | Infarction of left basal ganglia (HCC) - Primary | + + | Hypokalemia Hypopotassemia | + + | Right hand weakness Muscle weakness (generalized) | + + | 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 | | (HCC) | + + | Anemia Anemia, unspecified | + + | Receptive aphasia | + + | Cognitive impairment Unspecified persistent mental disorders due to conditions | | classified elsewhere | + + documented in this encounter Administered Medications + +--------+ +--------+------+------+ | Medication Order | MAR | Action | Dose | Rate | Site | | | Action | Date | | | | + +--------+ +--------+------+------+ | acetaminophen (TYLENOL) tablet | Given | 05/22/19 | 650 mg | | | | 650 mg 650 mg, Oral, EVERY 4 | | 19 8:07 | | | | | HOURS PRN, Pain, or fever >= 38.6 | | AM PST | | | | | C (101.5 F), Starting Mon | | | | | | | 05/18/18 at 1911 | | | | | | + +--------+ +--------+------+------+ +-------+ +--------+---+---+ | Given | 05/19/19 | 650 mg | | | | | 19 8:38 | | | | | | PM PST | | | | +-------+ +--------+---+---+ +---+---+ | | | +---+---+ + +-------+ +-------+---+---+ | aspirin chewable tablet 81 mg | Given | 05/22/19 | 81 mg | | | | 81 mg, Oral, DAILY, First dose on | | 19 8:07 | | | | | 05/19/18 at 0900 | | AM PST | | | | + +-------+ +-------+---+---+ +-------+ +-------+---+---+ | Given | 05/21/19 | 81 mg | | | | | 19 8:19 | | | | | | AM PST | | | | +-------+ +-------+---+---+ | Given | 05/20/19 | 81 mg | | | | | 19 9:37 | | | | | | AM PST | | | | +-------+ +-------+---+---+ +---+---+ | | | +---+---+ + +-------+ +-------+---+---+ | atorvaSTATin (LIPITOR) tablet | Given | 05/21/19 | 40 mg | | | | 40 mg 40 mg, Oral, NIGHTLY, | | 19 9:27 | | | | | First dose on 05/18/18 at 2215 | | PM PST | | | | + +-------+ +-------+---+---+ +-------+ +-------+---+---+ | Given | 05/20/19 | 40 mg | | | | | 19 8:35 | | | | | | PM PST | | | | +-------+ +-------+---+---+ | Given | 05/19/19 | 40 mg | | | | | 19 8:39 | | | | | | PM PST | | | | +-------+ +-------+---+---+ +---+---+ | | | +---+---+ + +-------+ +-----+---+---+ | calcium gluconate injection 1 g | Given | 05/22/19 | 1 g | | | | 1 g, Intravenous, ONCE, Fri | | 19 8:07 | | | | | 05/22/18 at 0800, For 1 dose | | AM PST | | | | + +-------+ +-----+---+---+ +---+---+ | | | +---+---+ + +-------+ +--------+---+---+ | cefdinir (OMNICEF) capsule 300 | Given | 05/22/19 | 300 mg | | | | mg 300 mg, Oral, 2 TIMES DAILY, | | 19 8:07 | | | | | First dose on 05/20/18 at | | AM PST | | | | | 2100, Indications: UTI - LOWER | | | | | | + +-------+ +--------+---+---+ +-------+ +--------+---+---+ | Given | 05/21/19 | 300 mg | | | | | 19 9:27 | | | | | | PM PST | | | | +-------+ +--------+---+---+ | Given | 05/21/19 | 300 mg | | | | | 19 8:19 | | | | | | AM PST | | | | +-------+ +--------+---+---+ +---+---+ | | | +---+---+ + +-------+ +-----+---+ + | cefTRIAXone (ROCEPHIN) 1 g in | Given | 05/19/19 | 1 g | | Glut-Lef | | lidocaine IM syringe (350 mg/mL) | | 19 9:13 | | | t | | 1 g (rounded from 1,000 mg), | | PM PST | | | | | Intramuscular, EVERY 24 HOURS | | | | | | | (Daily), First dose on Fri | | | | | | | 05/19/18 at 2145, Keep in | | | | | | | refrigerator. For IM use only., | | | | | | | Indications: UTI - LOWER | | | | | | + +-------+ +-----+---+ + +---+---+ | | | +---+---+ + +---------+ +-----+-------+---+ | cefTRIAXone (ROCEPHIN) 1 g in | New Bag | 05/18/19 | 1 g | 100 | | | sodium chloride 0.9% 50 mL IVPB | | 19 5:29 | | mL/hr | | | 1 g, Intravenous, Administer over | | PM PST | | | | | 30 Minutes, ONCE, 05/18/18 at | | | | | | | 1715, For 1 dose, Activate | | | | | | | system and mix before use., | | | | | | | Indications: UTI - LOWER | | | | | | + +---------+ +-----+-------+---+ +---+---+ | | | +---+---+ + +-------+ +--------+---+---+ | docusate sodium (COLACE) | Given | 05/20/19 | 100 mg | | | | capsule 100 mg 100 mg, Oral, 2 | | 19 8:35 | | | | | TIMES DAILY PRN, Constipation, | | PM PST | | | | | Starting 05/18/18 at 1911, 1st | | | | | | | line agent for constipation | | | | | | | relief., | | | | | | + +-------+ +--------+---+---+ +-------+ +--------+---+---+ | Given | 05/19/19 | 100 mg | | | | | 19 8:39 | | | | | | PM PST | | | | +-------+ +--------+---+---+ +---+---+ | | | +---+---+ + +-------+ +-------+---+ + | enoxaparin (LOVENOX) 40 mg/0.4 | Given | 05/22/19 | 40 mg | | Abdomen- | | mL injection 40 mg 40 mg, | | 19 8:07 | | | RUQ | | Subcutaneous, EVERY 24 HOURS | | AM PST | | | | | (Daily), First dose on Mon | | | | | | | 05/18/18 at 1930 | | | | | | + +-------+ +-------+---+ + +-------+ +-------+---+ + | Given | 05/21/19 | 40 mg | | Abdomen- | | | 19 8:19 | | | RUQ | | | AM PST | | | | +-------+ +-------+---+ + | Given | 05/20/19 | 40 mg | | Abdomen- | | | 19 9:37 | | | LLQ | | | AM PST | | | | +-------+ +-------+---+ + +---+---+ | | | +---+---+ + +-------+ +--------+---+---+ | ferrous sulfate tablet 325 mg | Given | 05/22/19 | 325 mg | | | | 325 mg, Oral, DAILY WITH | | 19 8:07 | | | | | BREAKFAST, First dose on Regine | | AM PST | | | | | 05/21/18 at 0815 | | | | | | + +-------+ +--------+---+---+ +-------+ +--------+---+---+ | Given | 05/21/19 | 325 mg | | | | | 19 8:19 | | | | | | AM PST | | | | +-------+ +--------+---+---+ +---+---+ | | | +---+---+ + +-------+ +---------+---+---+ | iopamidol (ISOVUE-370) 370 | Given | 05/20/19 | 100 mLs | | | | mg/mL injection 100 mL 100 mL, | | 19 11:43 | | | | | Intravenous, ONCE PRN, Other, | | AM PST | | | | | Starting 05/20/18 at 1143, For | | | | | | | 1 dose, Cat Scanner | | | | | | + +-------+ +---------+---+---+ +---+---+ | | | +---+---+ + +-------+ +-------+---+---+ | lisinopril (PRINIVIL, ZESTRIL) | Given | 05/22/19 | 20 mg | | | | tablet 20 mg 20 mg, Oral, DAILY, | | 19 8:07 | | | | | First dose on 05/18/18 at | | AM PST | | | | | 1930 | | | | | | + +-------+ +-------+---+---+ +-------+ +-------+---+---+ | Given | 05/21/19 | 20 mg | | | | | 19 8:19 | | | | | | AM PST | | | | +-------+ +-------+---+---+ | Given | 05/20/19 | 20 mg | | | | | 19 9:38 | | | | | | AM PST | | | | +-------+ +-------+---+---+ +---+---+ | | | +---+---+ + +-------+ +--------+---+---+ | magnesium oxide (MAG-OX) tablet | Given | 05/19/19 | 800 mg | | | | 800 mg 800 mg, Oral, 2 TIMES | | 19 8:38 | | | | | DAILY, First dose on Fri05/19/18 | | PM PST | | | | | at 0900, For 2 doses | | | | | | + +-------+ +--------+---+---+ +-------+ +--------+---+---+ | Given | 05/19/19 | 800 mg | | | | | 19 8:42 | | | | | | AM PST | | | | +-------+ +--------+---+---+ +---+---+ | | | +---+---+ + +-------+ +---------+---+---+ | metoprolol tartrate (LOPRESSOR) | Given | 05/22/19 | 12.5 mg | | | | tablet 12.5 mg 12.5 mg, Oral, 2 | | 19 8:11 | | | | | TIMES DAILY, First dose (after | | AM PST | | | | | last modification) on Fri05/20/18 | | | | | | | at 2100 | | | | | | + +-------+ +---------+---+---+ +-------+ +---------+---+---+ | Given | 05/21/19 | 12.5 mg | | | | | 19 9:27 | | | | | | PM PST | | | | +-------+ +---------+---+---+ | Given | 05/21/19 | 12.5 mg | | | | | 19 8:19 | | | | | | AM PST | | | | +-------+ +---------+---+---+ +---+---+ | | | +---+---+ + +-------+ +-------+---+---+ | metoprolol tartrate (LOPRESSOR) | Given | 05/20/19 | 25 mg | | | | tablet 25 mg 25 mg, Oral, 2 | | 19 9:38 | | | | | TIMES DAILY, First dose (after | | AM PST | | | | | last modification) on 05/19/18 | | | | | | | at 0900 | | | | | | + +-------+ +-------+---+---+ +-------+ +-------+---+---+ | Given | 05/19/19 | 25 mg | | | | | 19 8:39 | | | | | | PM PST | | | | +-------+ +-------+---+---+ +---+---+ | | | +---+---+ + +-------+ +-------+---+---+ | metoprolol tartrate (LOPRESSOR) | Given | 05/18/19 | 50 mg | | | | tablet 50 mg 50 mg, Oral, 2 | | 19 8:07 | | | | | TIMES DAILY, First dose on Mon | | PM PST | | | | | 05/18/18 at 2100 | | | | | | + +-------+ +-------+---+---+ +---+---+ | | | +---+---+ + +---------+ +---------+---+ + | nicotine (NICODERM) 14 mg/24 hr | Patch | 05/22/19 | 1 patch | | Arm-Left | | 1 patch 1 patch, Transdermal, | Applied | 19 8:05 | | | Upper | | DAILY, First dose on Fri05/19/18 | | AM PST | | | | | at 1245 | | | | | | + +---------+ +---------+---+ + + + +---------+---+ + | Patch Applied | 05/21/19 | 1 patch | | Arm-Righ | | | 19 8:20 | | | t Upper | | | AM PST | | | | + + +---------+---+ + | Patch Applied | 05/20/19 | 1 patch | | Arm-Left | | | 19 9:47 | | | Upper | | | AM PST | | | | + + +---------+---+ + +---+---+ | | | +---+---+ + +-------+ +---+---+---+ | nystatin (MYCOSTATIN) powder | Given | 05/22/19 | | | | | Topical, 2 TIMES DAILY, First | | 19 8:09 | | | | | dose on Regine 05/21/18 at 2100, Wash | | AM PST | | | | | and dry under both breasts, | | | | | | | apply nystatin powder under both | | | | | | | breasts Sprinkle powder on | | | | | | | affected area., | | | | | | + +-------+ +---+---+---+ +-------+ + +---+---+ | Given | 05/21/19 | 1 | | | | | 19 9:27 | Applicat | | | | | PM PST | ion | | | +-------+ + +---+---+ +---+---+ | | | +---+---+ + +-------+ +--------+---+---+ | potassium chloride (Klor-Con | Given | 05/19/19 | 20 mEq | | | | M20) ER tablet 20 mEq 20 mEq, | | 19 11:43 | | | | | Oral, EVERY 4 HOURS (6 times per | | AM PST | | | | | day), First dose on Fri05/19/18 | | | | | | | at 0830, For 2 doses, Tablet may | | | | | | | be cut where scored but do not | | | | | | | crush., | | | | | | + +-------+ +--------+---+---+ +-------+ +--------+---+---+ | Given | 05/19/19 | 20 mEq | | | | | 19 8:42 | | | | | | AM PST | | | | +-------+ +--------+---+---+ +---+---+ | | | +---+---+ + +-------+ +--------+---+---+ | potassium chloride (KLOR-CON) | Given | 05/18/19 | 40 mEq | | | | ER tablet 40 mEq 40 mEq, Oral, | | 19 4:23 | | | | | ONCE, 05/18/18 at 1630, For 1 | | PM PST | | | | | dose, May take with food to | | | | | | | decrease GI upset., | | | | | | + +-------+ +--------+---+---+ +---+---+ | | | +---+---+ + +---------+ +--------+-------+---+ | potassium chloride 10 mEq in | New Bag | 05/18/19 | 10 mEq | 100 | | | 100 mL IVPB 10 mEq, Intravenous, | | 19 8:42 | | mL/hr | | | Administer over 1 Hours, EVERY | | PM PST | | | | | HOUR, First dose on 05/18/18 | | | | | | | at 1700, For 4 doses | | | | | | + +---------+ +--------+-------+---+ +---------+ +--------+-------+---+ | New Bag | 05/18/19 | 10 mEq | 100 | | | | 19 8:07 | | mL/hr | | | | PM PST | | | | +---------+ +--------+-------+---+ | New Bag | 05/18/19 | 10 mEq | 100 | | | | 19 7:46 | | mL/hr | | | | PM PST | | | | +---------+ +--------+-------+---+ +---+---+ | | | +---+---+ + +-------+ + +---+---+ | Pramoxine-Calamine 1-3 % lotion | Given | 05/22/19 | 1 | | | | 1 Application 1 Application, | | 19 8:09 | Applicat | | | | Topical, 4 TIMES DAILY, First | | AM PST | ion | | | | dose on Fri05/20/18 at 1300, | | | | | | | Apply to rash on chest and back, | | | | | | + +-------+ + +---+---+ +-------+ + +---+---+ | Given | 05/21/19 | 1 | | | | | 19 9:26 | Applicat | | | | | PM PST | ion | | | +-------+ + +---+---+ | Given | 05/21/19 | 1 | | | | | 19 5:06 | Applicat | | | | | PM PST | ion | | | +-------+ + +---+---+ +---+---+ | | | +---+---+ documented in this encounter
--- OUTSIDE RECORDS SUMMARY | ~2019-03-03 | XMS | Encounter Summary ---
Demographics + + + | Address | BAD ADDRESS | | | [place] [address] | + + + | Home Phone | | + + + | Preferred Language | Unknown | + + + | Marital Status | | + + + | Gnosticism Affiliation | 1077 | + + + | Race | Unknown | + + + | Ethnic Group | Unknown | + + + Author + + + | Author | [facility] | | | and [place] | + + + | Organization | [facility] | | | and [place] | + + + | Address | Unknown | + + + | Phone | Unavailable | + + + Support + + + + + | Name | Relationship | Address | Phone | + + + + + | Hector Mack | ECON | [address] | | | | | [place] [address] | | + + + + + | Najma Krishnamurthy | ECON | Unknown | | + + + + + | Hector Mack | ECON | [address] | | | | | [place] | | | | | [address] | | + + + + + | Najma Sanches | ECON | Unknown | | + + + + + Care Team Providers + +------+ + | Care Anesthesiologist Physician Name | Role | Phone | + +------+ + PCP | Unavailable | + +------+ + Encounter Details +--------+ + + + + | Date | Type | Department | Care Team | Description | +--------+ + + + + | 10/16/ | Hospital | [facility] | Lalo Londono MD | | | 2004 | Encounter | MED [facility] | [address] | | | | | CONV DEPT [address] | [address] | | | | | [place], | [address] | | | | | [place] [address] | | | | | | [phone] | | | +--------+ + + + [...]
--- OUTSIDE RECORDS SUMMARY | ~2019-03-03 | XMS | Clinical Summary ---
Demographics + + + | Address | [address] | | | [place] [address] | + + + | Home Phone | | + + + | Preferred Language | Unknown | + + + | Marital Status | | + + + | Taoist Affiliation | 1077 | + + + | Race | Unknown | + + + | Ethnic Group | Unknown | + + + Author + + + | Author | [facility] (Historical as of | | | 11-14-18) | + + + | Organization | [facility] (Historical as of | | | 11-14-18) | + + + | Address | Unknown | + + + | Phone | Unavailable | + + + Support + + + + + | Name | Relationship | Address | Phone | + + + + + | Hector Mack | ECON | [address] | | | | | [place] | | | | | [address] | | + + + + + | Najma Sanches | ECON | Unknown | | + + + + + Care Team Providers + +------+ + | Care Pharmaceutical Analyst Name | Role | Phone | + +------+ + | Tuan Chan MD | PP | | + +------+ + Allergies + + + + + + | Active Allergy | Reactions | Severity | Noted | Comments | | | | | Date | | + + + + + + | Codeine | Other (See Comments) | Medium | 09/05/19 | Unknown | | | | | 13 | | + + + + + + Current Medications + + +---------+---------+------+------+-------+ | Prescription | Sig. | Disp. | Refills | Star | End | Statu | | | | | | t | Date | s | | | | | | Date | | | + + +---------+---------+------+------+-------+ | atorvastatin | Take 1 tablet by | 90 | 3 | 05 | 05 | Activ | | (LIPITOR) 40 MG | mouth nightly. | tablet | | | 12/18 | e | | tablet | | | | 19 | 20 | | + + +---------+---------+------+------+-------+ | levETIRAcetam | Take 1 tablet by | 60 | 5 | 05/3 | 05/2 | Activ | | (KEPPRA) 750 MG | mouth 2 (two) times | tablet | | 0/20 | 9/20 | e | | tablet | daily. | | | 19 | 20 | | + + +---------+---------+------+------+-------+ | clopidogrel | Take 1 tablet by | 30 | 5 | 05/3 | | Activ | | (PLAVIX) 75 MG | mouth daily. | tablet | | 0/20 | | e | | tablet | | | | 19 | | | + + +---------+---------+------+------+-------+ | lisinopril | Take 1 tablet by | 30 | 3 | 05/3 | | Activ | | (ZESTRIL) 20 MG | mouth daily. | tablet | | 0/20 | | e | | tablet | | | | 19 | | | + + +---------+---------+------+------+-------+ | metoprolol | Take 1 tablet by | 30 | 5 | 05/3 | | Activ | | (TOPROL-XL) 25 MG 24 | mouth daily. | tablet | | 0/20 | | e | | hr tablet | | | | 19 | | | + + +---------+---------+------+------+-------+ | albuterol | Inhale 2 puffs into | 1 | 5 | 05/3 | 05/2 | Activ | | (PROVENTIL | the lungs every 4 | Inhaler | | 0/20 | 12/18 | e | | HFA;VENTOLIN HFA) | (four) hours as | | | 19 | 20 | | | 108 (90 Base) | needed for Wheezing | | | | | | | MCG/ACT | or Shortness of | | | | | | | inhalerIndications: | Breath. | | | | | | | Chronic Obstructive | | | | | | | | Pulmonary Disease | | | | | | | + + +---------+---------+------+------+-------+ | senna (SENOKOT) | Take 1 tablet by | 30 | 0 | 05/3 | 05/2 | Activ | | 8.6 MG tablet | mouth daily as | tablet | | 0/20 | 9/20 | e | | | needed for | | | 19 | 20 | | | | Constipation. | | | | | | + + +---------+---------+------+------+-------+ | calcium carbonate | Take 1 tablet by | 120 | 0 | 05/3 | 05/2 | Activ | | (TUMS) 500 MG | mouth daily. | tablet | | 0/20 | 9/20 | e | | chewable tablet | | | | 19 | 20 | | + + +---------+---------+------+------+-------+ | furosemide (LASIX) | Take 1 tablet by | 10 | 0 | 05/3 | 05/2 | Activ | | 20 MG tablet | mouth every other | tablet | | 0/20 | 9/20 | e | | | day as needed | | | 19 | 20 | | | | (Bilateral lower | | | | | | | | extremity edema). | | | | | | + + +---------+---------+------+------+-------+ Active Problems + + + | Problem | Noted Date | + + + | Paroxysmal atrial fibrillation (HCC) | 08/27/2018 | + + + | Poor short term memory | 08/27/2018 | + + + | Left sided lacunar infarction (HCC) | 08/27/2018 | + + + + + | Overview: Left basal ganglia | + + + + + | Hyperlipidemia | 08/21/2018 | + + + | New onset seizure (HCC) | 08/21/2018 | + + + | Abnormal EKG | 04/27/2014 | + + + | KS (myocardial infarction) | 09/05/2012 | + + + + + | Overview: NSTEMI | + + + + + | NSTEMI (non-ST elevated myocardial infarction) | 09/04/2012 | + + + | HTN (hypertension) | 09/04/2012 | + + + | CAD (coronary artery disease) | 09/04/2012 | + + + | Morbid obesity (HCC) | | + + + + + | Overview: weighed over 500 lbs prior to bariatric surgery, | | lost > 300 lbs | + + + +---+ | S/P CABG x 4 | | + +---+ + + | Overview: occluded SVG>RCA; patent CASAS>LAD, patent "Y" seq | | SVG>D1>OM2 (cath 09/10) | + + + +---+ | CAD (coronary artery disease) of bypass graft | | + +---+ + + | Overview: occluded SVG > RCA | + + + +---+ | S/P PTCA (percutaneous transluminal coronary angioplasty) | | + +---+ + + | Overview: 3.5x16, 2.75x32 Taxus TRAVIS mid-distal LCx (07/16/03) | | // 2.5x12 Promus Element TRAVIS R PDA, 3.5x15 Promus Element TRAVIS | | distal RCA (09/05/12) | + + + +---+ | Alcohol abuse, in remission | | + +---+ + + | Overview: sober since 1990 | + + + +---+ | Recurrent nephrolithiasis | | + +---+ | Hydronephrosis of right kidney | | + +---+ | Abnormal EKG | | + +---+ | Stroke | | + +---+ + + | Overview: Right-sided, left facial droop - resolved; mild | | residual memory deficit | + + Family History + + +------+ + | Medical History | Relation | Name | Comments | + + +------+ + | Stroke | Daughter | | | + + +------+ + | COPD | Father | | | + + +------+ + | Coronary art dis | Mother | | | + + +------+ + | Diabetes type II | Mother | | | + + [...] unknown | + +------+ + + | Mother | | | heart failure | | | | (Age | | | | | 76) | | + +------+ + + Social History + +-------+ +--------+ + | Tobacco Use | Types | Packs/Day | Years | Date | | | | | Used | | + +-------+ +--------+ + | Former Smoker | | 1 | 15 | Quit: 04/27/1987 | + +-------+ +--------+ + + +---+---+---+ | Smokeless Tobacco: | | | | | Never Used | | | | + +---+---+---+ + + +---------+ + | Alcohol Use | Drinks/We | oz/Week | Comments | | | ek | | | + + +---------+ + | No | | | former h/o Alcohol Abuse, sober since 1988 | + + +---------+ + + + + | Sex Assigned at | Date Recorded | | | | + + + | Not on file | | + + + Last Filed Vital Signs + + + + | Vital Sign | Reading | Time Taken | + + + + | Blood Pressure | 135/98 | 08/27/2018 11:32 AM PDT | + + + + | Pulse | 59 | 08/27/2018 11:32 AM PDT | + + + + | Temperature | 36.9 C (98.5 F) | 08/27/2018 11:30 AM PDT | + + + + | Respiratory Rate | 16 | 08/27/2018 11:30 AM PDT | + + + + | Oxygen Saturation | 98% | 08/27/2018 11:32 AM PDT | + + + + | Inhaled Oxygen | - | - | | Concentration | | | + + + + | Weight | 73.3 kg (161 lb 11.2 | 08/26/2018 3:25 AM PDT | | | oz) | | + + + + | Height | 162.6 cm (5' 4") | 08/21/2018 6:32 AM PDT | + + + + | Body Mass Index | 27.76 | 08/26/2018 3:25 AM PDT | + + + + Plan [...] | Screening | 5 | | | | (Mammogram) | | | | + + + + + | Colon Cancer | | | | | Screening | 5 | | | | (Colonoscopy) | | | | + + + + + | Vaccine: Zoster (1 | | | | | of 2) | 5 | | | + + + + + | DEXA SCAN SCREENING | | | | | | 0 | | | + + [...] filefrom Last 3 Months Insurance + +--------+ +------+-------+ + | Payer | Benefi | Subscriber | Type | Phone | Address | | | t Plan | ID | | | | | | / | | | | | | | Group | | | | | + +--------+ +------+-------+ + | MEDICARE | MEDICA | [id number] | | | [address] | | | RE | | | | [place] [id number] | | | IP-OP | | | | | + +--------+ +------+-------+ + | MEDICAID | [place] | [id number] | | | [address] | | | N | | | | [place] | | | [place] | | | | [address] | | | 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
--- OUTSIDE RECORDS SUMMARY | ~2019-03-03 | XMS | Encounter Summary ---
Demographics + + + | Address | BAD ADDRESS | | | [place] [address] | + + + | Home Phone [...] Author | [facility] | | | and [place] | + + + | Organization | [facility] | | | and [...] | | | | | [place] [address] | | + + + + + | Najma Krishnamurthy | ECON | Unknown | | + + + + + | Hector Mack | ECON | [address] | | | | | [place] | | | | | [address] | | + + + + + | Najma Sanches | ECON | Unknown | | + + + + + Care Team Providers + +------+ + | Care Commission Broker Name | Role | Phone | + +------+ + | Tuan Chan MD | PCP | | + +------+ + Reason for Visit +---------+ + | Reason | Comments | +---------+ + | Results | biopsy results | +---------+ + Encounter Details +--------+ + + + + | Date | Type | Department | Care Team | Description | +--------+ + + + + | 03/05/ | Telephone | [facility] | Landen Zimmer, | Results (biopsy | | 2018 | | HOSPITAL DERMATOLOGY | CHIEF PAYROLL CLERK [address] | results) | | | | CLINIC [address] | [place], | | | | | [address] [place], | [place] [address] | | | | | [place] [address] | [phone] | | | | | [phone] | | | +--------+ + + + [...]
--- OUTSIDE RECORDS SUMMARY | ~2019-03-03 | XMS | Encounter Summary ---
Demographics + + + | Address | [address] | | | [place] [address] | + + + | Home Phone | | + + + | Preferred Language | Unknown | + + + | Marital Status | | + + + | Anabaptism Affiliation | PRO | + + + [...] [place] | | | | | [address] | | + + + + + Care Team Providers + +------+ + | Care Medical Sales Specialist Name | Role | Phone | [...] + + | 03/12/ | Hospital | [facility] [address] | Renato Chow MD | | | 2010 - | Encounter | [address] | [address] | | | | | [facility] | [place], [place] | | | 03/13/ | | [place], [place] | [address] | | | 2010 | | [address] | [phone] | | | | | [phone] | | | +--------+ + + + [...] re removal. Feel free to call the [facility] urology clinic as needed for any additional questions . Your Follow-Up Plan Follow-up information has not been specified. Other Discharge Orders and Instructions Please contact Urology clinic ([phone]) during business hours or the Urology resident audit consultant ([phone]) after business hours for: 1. Redness or [...] 03/13/2011Patient Education Materials: None needed. Please se e discharge summary. Additional Instructions: Please see discharge [...] documented as of this encounter Progress Notes Johann Munoz MD - 03/13/2011 7:37 AM PSTFormatting of this note might be different f rom the original. Urology Progress Note Hospital Day: 1 Author: JOHANN MUNOZ MD Attending Physician: Renato Chow MD Patient: GERMAINE HEARD [id number] 24H events/Subjective: No events overnight. Pain well [...] Min: 95 % Max: 100 % Date 03/12/11 07 - 03/13/11 0659 03/13/11699 - 03/14/11 0659 Shift 7100-5111 1935-0425 0651-1860 Daily Total 8106-9311 2478-4006 2523-0050 Daily Total I N T A K E [address] 520 1080 1600 I.V. 1550 777 619 2455 5 5 Shift Total 1550 1320 1880 4750 5 5 O U T P U T Urine 800 469 729 1966 200 200 Shift Total 800 030 411 3463 200 200 Medication: acetaminophen (aka TYLENOL) tablet [...] DEPARTMENT OF | [address] | [place] [address] | | | PATHOLOGY | [address] [...] | + + + + + | [facility] | [address] | [place] [address] | | | PATHOLOGY | [address] [...] | | | | | | [address] [facility], | | | | | | [place] [address] | | | | | | [phone] | | | | | | | | | | | | [email or web address], | | | | | | Alma [...] [facility] | [address] | [place], [place] | | | [facility] | | [address] | | + + + + + [...] | | | | | signed / Stu | | | | | | Primack 03/12/2011 13:22 | | | | | [...] | | | | Until Fri03/12/11 at 08 | | | | | | + +---------+ +--------+--------+---+ + +---+ | | | + +---+ | ciprofloxacin (aka CIPRO) IV 1 | | | dose, Starting Fri03/12/11 at | | | 0823, Until Fri03/12/11 at 08 | | + +---+ | | | + +---+ + +---------+ +---------+--------+---+ | fentaNYL citrate (PF) (aka | New Bag | 03/12/20 | 100 mcg | mL/hr | | | SUBLIMAZE) injection 50 mcg 50 | | 11 1:02 | | | | | mcg, intravenous, POSTPROCEDURE | | PM PST | | | | | PRN, Starting Fri03/12/11 at | | | | [...] injection 1 dose, | | | Starting Fri03/12/11 at 1107, | | | Until Fri03/12/11 at 1302 | | + +---+ | | | + +---+ + +---------+ +--------+--------+---+ | HYDROmorphone (taylor PHILIPPE) | New Bag | 03/13/20 | 0.8 mg | mL/hr | | | injection 0.2-0.8 mg 0.2-0.8 mg, | | 11 2:58 | | | | | intravenous, EVERY 2 HOURS | | AM PST | | | | | NEEDED, Starting Fri03/12/11 at | | | | | | | 1101, Until Fri03/13/11 at 1535, | | | | | | | severe pain | | | | | | + +---------+ +--------+--------+---+ +---------+ +------+--------+---+ | New Bag | 03/12/20 | 1 mg | mL/hr | | | | 11 2:08 | | | | | | PM PST | | | | +---------+ +------+--------+---+ + +---+ | | | + +---+ | HYDROmorphone (ilanaa DILAUDID) | | | injection 1 dose, Starting Fri | | | 03/12/11 at 1108, Until [...] senna-docusate (aka ARLYN S) | Given | 03/13/20 | 1 [...]
--- OUTSIDE RECORDS SUMMARY | ~2019-03-03 | XMS | Encounter Summary ---
Demographics + + + | Address | BAD ADDRESS | | | [place] [address] | + + + | Home Phone | | + + + | Preferred Language | Unknown | + + + | Marital Status | | + + + | Latter Day Affiliation | 1077 | + + + | Race | Unknown | + + + | Ethnic Group | Unknown | + + + Author + + + | Author | [facility] | | | and [place] | + + + | Organization | [facility] | | | [...] | | | | | [place] [address] | | + + + + + | Najma Krishnamurthy | ECON | Unknown | | + + + + + | Hector Mack | ECON | [address] | | | | | [place] | | | | | [address] | | + + + + + | Najma Sanches | ECON | Unknown | | + + + + + Care Team Providers + +------+ + | Care Certified Hearing Instrument Dispenser Name | Role | Phone | + +------+ + PCP | Unavailable | + +------+ + Encounter Details +--------+ + + + + | Date | Type | Department | Care Team | Description | +--------+ + + + + | 05/11/ | Hospital | [facility] | Kike Constantino | | | 1996 | Encounter | MED CTR SLEEP | MD Aura [address] [place] [address] | | | | | [address] [place] | [facility] | | | | | [place], [place] | [place] [address] | | | | | [address] | [phone] | | | | | [phone] | | | +--------+ + + + [...]
--- OUTSIDE RECORDS SUMMARY | ~2019-03-03 | XMS | Encounter Summary ---
Demographics + + + | Address | BAD ADDRESS | | | [place] [address] | + + + | Home Phone | | + + + | Preferred Language | Unknown | + + + | Marital Status | | + + + | Gnosticism Affiliation | 1077 | + + + | Race | Unknown | + + + | Ethnic Group | Unknown | + + + Author + + + | Author | [facility] | | | and [place] | + + + | Organization | [facility] | [...] | | | | | [place] [address] | | + + + + + | Najma Krishnamurthy | ECON | Unknown | | + + + + + | Hector Mack | ECON | [address] | | | | | [place] | | | | | [address] | | + + + + + | Najma Sanches | ECON | Unknown | | + + + + + Care Team Providers + +------+ + | Care Photo Stylist Name | Role | Phone | + [...] Encounter | HOSPITAL XRAY [address] | [address] | | | | [address] | [place], [place] | | | | | [place] | [address] | | | | | [address] | [phone] | | | | | [phone] | | | +--------+ + + + [...] multiple projections | | | show near zopi-ih-osvg articulation of the medial compartment. | | [...] Dexa scan evaluation is recommended. JOB #: [id number] | | | Digitally Released by: Wayne Moraes Read By: WAYNE Bryant | | [...] | Films in multiple projections show near cptv-in-kaqm articulation of the | | medial compartment. [...] | | | | | JOB #: [id number] | | Digitally Released by: Wayne Moraes | | | | | | Read By: WAYNE MORAES MD | | Date: 09/02/2016 16:10 | | | + + documented in this encounter Visit Diagnoses Not on filedocumented in this encounter"
--- OUTSIDE RECORDS SUMMARY | ~2019-03-03 | XMS | Encounter Summary ---
Demographics + + + | Address | BAD ADDRESS | | | [place] [address] | + + + | Home Phone | | + + + | Preferred Language | Unknown | + + + | Marital Status | | + + + | Rastafari Affiliation | 1077 | + + + | Race | Unknown | + + + | Ethnic Group | Unknown | + + + Author + + + | Author | [facility] | | | and [place] | + + + | Organization | [facility] | | | and [place] | + + + | Address | Unknown | + + + | Phone | Unavailable | + + + Support + + + + + | Name | Relationship | Address | Phone | + + + + + | Hector Mack | ECON | [address] | | | | | [place] [address] | | + + + + + | Najma Krishnamurthy | ECON | Unknown | | + + + + + | Hector Mack | ECON | [address] | | | | | [place] | | | | | [address] | | + + + + + | Najma Sanches | ECON | Unknown | | + + + + + Care Team Providers + +------+ + | Care Sand Mill Grinder Name | Role | Phone | + +------+ + | Tuan Chan MD | PCP | | + +------+ + Encounter Details +--------+ + + + + | Date | Type | Department | Care Team | Description | +--------+ + + + + | 11/02/ | Orders Only | [facility] | Provider, | | | 2019 | | SYSTEM GENERIC OP | [address] | | | | | [address] | [address] | | | | | [address] [place], [place] | [place] [address] | | | | | [address] | | | | | | [phone] | | | +--------+ + + + [...]
--- OUTSIDE RECORDS SUMMARY | ~2019-03-03 | XMS | Encounter Summary ---
Demographics + + + | Address | BAD ADDRESS | | | [place] [address] | + + + | Home Phone | | + + + | Preferred Language | Unknown | + + + | Marital Status | | + + + | Religion Affiliation | 1077 | + + + | Race | Unknown | + + + | Ethnic Group | Unknown | + + + Author + + + | Author | [facility] | | | and [place] | + + + | Organization | [facility] | | | and [place] | + + + | Address | Unknown | + + + | Phone | Unavailable | + + + Support + + + + + | Name | Relationship | Address | Phone | + + + + + | Hector Mack | ECON | [address] | | | | | [place] [address] | | + + + + + | Najma Krishnamurthy | ECON | Unknown | | + + + + + | Hector Mack | ECON | [address] | | | | | [place] | | | | | [address] | | + + + + + | Najma Sanches | ECON | Unknown | | + + + + + Care Team Providers + +------+ + | Care Maintenance Technician 3Rd Shift Name | Role | Phone | + +------+ + PCP | Unavailable | + +------+ + Encounter Details +--------+ + + + + | Date | Type | Department | Care Team | Description | +--------+ + + + + | 12/22/ | Hospital | [facility] | Tuan Chan, | | | 2008 | Encounter | HOS[facility] XRAY [address] | [address] [place] [address] | | | | | [address] | [place], [place] | | | | | [place], [place] | [address] | | | | | [address] | [phone] | | | | | [phone] | | | +--------+ + + + [...]
--- OUTSIDE RECORDS SUMMARY | ~2019-03-03 | XMS | Encounter Summary ---
Demographics + + + | Address | [address] | | | [place] [address] | + + + | Home Phone [...] [place] | | | | | [address] | | + + + + + Care Team Providers + +------+ + | Care Shoemaking Cutter Name | Role | Phone | [...] Dx); | | | | Surgery at [facility] | | Intertrigo; CAD | | | | [address] | | (Coronary Artery | | | | Mailcode: [facility] | | Disease); DM Circ | | | | [facility] | | Dis Type II, | | | | and Healing, | | Uncontrolled ([facility]) | | | | Building [address], | | | | | | Floor [place], [place] | | | | | | [address] | | | | | | [phone] | | | +--------+---------+ + + + [...] surgeries scheduled to take place on the hessmer at the [facility]: Surgeries scheduled in the [facility] ( North): registration is located on the 4th floor of [facility] (Day Surgery). Surgeries scheduled in the [facility]: registration is located on the 9th floor. Surgeries scheduled in [facility]: registration is located on the 6th floor. Surgeries scheduled in the [facility]: registration is located i n the [facility] on the first floor. For surgeries scheduled to take place at the [facility]: registration is l ocated [...] Accession | | | | | | #:[id number] CC | | | | | | [...] | | | | | | at [facility] and | | | | | | Science | | | | | | [place].ASSESSMENT: | | | | | | Negative [...] | + + + + + | [facility] | [facility] | [place] [address] | | | PATHOLOGY | [address] | | | + + + + + | [facility] DEPARTMENT OF | [facility] | [place] [address] | | | PATHOLOGY | [address] [...] + + + + | [facility] DEPARTMENT OF | [address] | [place] [address] | | | PATHOLOGY | [address] | | | + + + + + | [facility] DEPARTMENT OF | [address] | [place] [address] | | | PATHOLOGY | [address] [...] + + + + | [facility] DEPARTMENT OF | [address] [facility] | [place] [address] | | | PATHOLOGY | [address] | | | + + + + + | [facility] DEPARTMENT OF | [address] [facility] | [place] [address] | | | PATHOLOGY | [address] [...] Performed At | + + + | [id number] Estimated GFR > 60 mL/min/1.73 sq m if non- | [facility] | | Cuban [id number] Estimated GFR > 60 mL/min/1.73 sq m if | DEPARTMENT OF | | [place] GFR is estimated using the MDRD equation [...] | + + + + + | [facility] | [facility] | [place] [address] | | | PATHOLOGY | [address] | | | + + + + + | [facility] | [address] [facility] | [place] [address] | | | PATHOLOGY | [address] [...] DEPARTMENT OF | [address] | [place] [address] | | | PATHOLOGY | [address] | | | + + + + + | [facility] DEPARTMENT OF | [address] | [place] [address] | | | PATHOLOGY | [address] | | | + + + + + documented in this encounter Visit Diagnoses + + | Diagnosis | + + | Panniculitis - Primary Panniculitis, unspecified site | + + | Intertrigo Other specified erythematous condition | + + | CAD (coronary artery disease) Coronary atherosclerosis of unspecified type of vessel, | | [place] or graft | + + | Type II or unspecified type diabetes mellitus with peripheral circulatory disorders, | | uncontrolled(250.72) Type II or unspecified type diabetes mellitus with peripheral | | circulatory disorders, uncontrolled | + + documented in this encounter
--- OUTSIDE RECORDS SUMMARY | ~2019-03-03 | XMS | Encounter Summary ---
Demographics + + + | Address | [address] | | | [place] [address] | + + + | Home Phone [...] [place] | | | | | [address] | | + + + + + Care Team Providers + +------+ + | Care Soccer Referee Name | Role | Phone | + [...] | | | | | Surgery at [facility] [address] | | | | | | [address] | | | | | | Mailcode: [facility] | | | | | | [facility] | | | | | | and Healing, | | | | | | Building 1, 5th | | | | | | Floor [place], [place] | | | | | | [address] | | | | | | [phone] | | | +--------+---------+ + + + [...]
--- OUTSIDE RECORDS SUMMARY | ~2019-03-03 | XMS | Encounter Summary ---
Demographics + + + | [address] | [address] | | | [place] [address] | + + + | Home Phone [...] [place] | | | | | [address] | | + + + + + Care Team Providers + +------+ + | Care Graphics Specialist Name | Role | Phone | [...] | 2005 | Visit | Bariatric [address] | MD | Morbid Obesity (HCC) | | | | [address] | | | | | | Mailcode: [id number] | | | | | | Physician's An | | | | | | [address], [place] | | | | | | [address] | | | | | | [phone] | | | +--------+---------+ + + + [...] documented in this encounter Progress Notes Fee Rn, Scarlett Fortune - 01/22/2006 5:56 PM PDTFormatting of this note might be different from yosvany mendoza original. 01/22/2006 BARIATRIC PRE-OP SURGEON NOTE Germaine Félix here for discussion of surgical weight loss procedure. Scheduled for [facility] on 02/05/06 Last 1 Wt Readings: Date: [...] has been cleared for surgery by her sweeper cleaner industrial, Dr. Melendez. She states she has completed [...] REFLUX DISEASE) SLEEP APNEA Past Surgical History: [place] CABG, VEIN, FOUR HX APPENDECTOMY HX CHOLECYSTECTOMY [...]
--- OUTSIDE RECORDS SUMMARY | ~2019-03-03 | XMS | Encounter Summary ---
Demographics + + + | Address | BAD ADDRESS | | | [place] [address] | + + + | Home Phone | | + + + | Preferred Language | Unknown | + + + | Marital Status | | + + + | Yarsanism Affiliation | 1077 | + + + | Race | Unknown | + + + | Ethnic Group | Unknown | + + + Author + + + | Author | [facility] | | | and [place] | + + + | Organization | [facility] [...] | | | | | [place] [address] | | + + + + + | Najma Krishnamurthy | ECON | Unknown | | + + + + + | Hector Mack | ECON | [address] | | | | | [place] | | | | | [address] | | + + + + + | Najma Sanches | ECON | Unknown | | + + + + + Care Team Providers + +------+ + | Care Inside Sales Recruiter Name | Role | Phone | + [...] | 2018 | | HOSPITAL DERMATOLOG[facility] | [facility] [address] | results) | | | | CLINIC [address] | [place], | | | | | [address] [place], | [place] [address] | | | | | [place] [address] | [phone] | | | | | [phone] | | | +--------+ + + + [...]
--- OUTSIDE RECORDS SUMMARY | ~2019-03-03 | XMS | Encounter Summary ---
Demographics + + + | Address | BAD ADDRESS | | | [place] [address] | + + + | Home Phone | | + + + | Preferred Language | Unknown | + + + | Marital Status | | + + + | Yazdanism Affiliation | 1077 | + + + | Race | Unknown | + + + | Ethnic Group | Unknown | + + + Author + + + | Author | [facility] | | | and [place] | + + + | Organization | [facility] | | | and [place] | + + + | Address | Unknown | + + + | Phone | Unavailable | + + + Support + + + + + | Name | Relationship | Address | Phone | + + + + + | Hector Mack | ECON | [address] | | | | | [place] [address] | | + + + + + | Najma Krishnamurthy | ECON | Unknown | | + + + + + | Hector Mack | ECON | [address] | | | | | [place] | | | | | [address] | | + + + + + | Najma Sanches | ECON | Unknown | | + + + + + Care Team Providers + +------+ + | Care Needle Felt Making Machine Operator Name | Role | Phone | + +------+ + PCP | Unavailable | + +------+ + Encounter Details +--------+ + + + + | Date | Type | Department | Care Team | Description | +--------+ + + + + | 04/14/ | Hospital | [facility] | | | | 1996 | Encounter | [facility] | | | | | | CENTER [address] | | | | | | [place] | | | | | | [address] | | | | | | [phone] | | | +--------+ + + + [...]
--- OUTSIDE RECORDS SUMMARY | ~2019-03-03 | XMS | Encounter Summary ---
Demographics + + + | Address | [address] | | | [place] [address] | + + + | Home Phone [...] [place] | | | | | [address] | | + + + + + Care Team Providers + +------+ + | Care Admissions Gate Attendant Name | Role | Phone | [...] 2007 | Registratio | [address] | [address] | | | | n | [place] Mailcode: [id number] | [place], [place] | | | | | [place], [place] | [address] | | | | | [address] | [phone] | | | | | [phone] | | | +--------+ + + + [...]
--- OUTSIDE RECORDS SUMMARY | ~2019-03-03 | XMS | Encounter Summary ---
Demographics + + + | Address | [address] | | | [place] [address] | + + + | Home Phone | | + + + | Preferred Language | Unknown | + + + | Marital Status | | + + + | Confucianist Affiliation | PRO | + + + [...] [place] | | | | | [address] | | + + + + + Care Team Providers + +------+ + | Care Expander Name | Role | Phone | + [...] | Office | Preoperative | 1, [facility] [address] | Other Specified | | 2007 | Visit | Medicine Clinic at | [address] | Pre-Operative | | | | [facility] [address] | [place] [address] | Examination (Primary | | | | [address] | | Dx) | | | | Mailcode: CH4S | | | | | | [facility] | | | | | | and Healing, | | | | | | Building [address]4th Floor | | | | | | [place], [place] | | | | | | [address] | | | | | | [phone] | | | +--------+---------+ + + + [...] | + + + + + | [facility] DEPARTMENT OF | [address] | [place] [address] | | | PATHOLOGY | [address] | | | + + + + + | [facility] DEPARTMENT OF | [address] | [place] [address] | | | PATHOLOGY | [address] [...] Performed At | + + + | [id number] Estimated GFR = 48 mL/min/1.73 sq m if non- | [facility] | | [id number] Estimated GFR = 59 mL/min/1.73 sq m [...] + + | [facility] | [address] | [place] [address] | | | PATHOLOGY | [address] | | | + + + + + | [facility] DEPARTMENT | [address] | [place] [address] | | | PATHOLOGY | [address] [...] view image for the detailed interpretation from [employer] results. | CARDIOLOGY | | | | + + + + + + + + | Performing | Address | City/State/Zipcode | Phone Number | | Organization | | | | + + + + + | [facility] | [address] | [place], [place] | | | CARDIOLOGY | [address] | [address] | | + + + + + | [facility] | [address] | [place], [place] | | | CARDIOLOGY | [facility] | [address] | | + + + + + documented in this encounter Visit Diagnoses + + | Diagnosis | + + | Other specified pre-operative examination - Primary | + + documented in this encounter
--- OUTSIDE RECORDS SUMMARY | ~2019-03-03 | XMS | Encounter Summary ---
Demographics + + + | Address | BAD ADDRESS | | | [place] [address] | + + + | Home Phone | | + + + | Preferred Language | Unknown | + + + | Marital Status | | + + + | Buddhist Affiliation | 1077 | + + + | Race | Unknown | + + + | Ethnic Group | Unknown | + + + Author + + + | Author | [facility] | | | and [place] | + + + | Organization | [facility] | | | [...] | | | | | [place] [address] | | + + + + + | Najma Krishnamurthy | ECON | Unknown | | + + + + + | Hector Blankenship | ECON | [address] | | | | | [place] | | | | | [address] | | + + + + + | Najma Sanches | ECON | Unknown | | + + + + + Care Team Providers + +------+ + | Care Product Inspection Coordinator Name | Role | Phone | [...] + + | 05/18/ | Hospital | 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 Weinstein ([facility]) Primary Discharge Dx: Active Hospital Problems [...] has remained stable on repeat labs. Continue STORE PROMOTER supplementation at 10 mEq per day. 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 Biop sied at [facility] in Jan 2018. Reviewed by dermatopathologist. [...] of urine. They report living [facility] in [place] for the winter. APS report being made, however she is going to a s afe living situation at [facility] in [place]. FEN:(albumin <= 3.2 g/dL) VTE Prophylxis low molecular weight heparin Code Status: Full Code Anticipated Date of Discharge: 05/22/[address] conditions, weather. Anticipated Discharge needs: PT, OT and speech therapy. Post-Hospital Care: Long Term Facility in [facility]. She has been accepted by Hanny Killian. [...] pH, Urine 5.5 5.0 - 8.0 Specific [place] 1.025 1.005 - 1.030 Protein, Urine 30 [...] Ct Angiogram Head Neck Result Date: 05/20/2018 [place] [address] NAME: GERMAINE BARBOUR DATE: 05/20/2018 : 0 1945 PT GENDER: F ROOM: IN Physician: ORALIA NEVAREZ PID3: [id number] CC TO: MR#: PROCEDURE: CTA BRAIN AND [...] thyroid gland. 1 :03 PM at workstation [id number] Pending study results on DC: Unresulted Labs [...] aka: PERCOCET Condition on Discharge: Stable Disposition: Long Term Facility Current Support: Family daughter Najma. Services Ordered: PT, OT, AIRCRAFT PNEUDRAULICS REPAIRER. See SNF transfer note for details. Follow-up Information [facility] medical records administrator. Discharge Instructions Please continue: - physical therapy [...] this encounter Progress Notes Trinidad Miranda, Health Sales And Service Associate - 05/21/2018 2:43 PM PSTTransport arrangements madrigal ve been finalized. Pharmacy for scripts have been finalized. Family has been notified. Queenie ctronically signed by Trinidad Miranda, Health Sales And Service Associate at 05/21/2018 2:44 PM PSTOralia Bhagat MD [...] on trunk, back, palms. Biop sied at [facility] in Jan 2018. Reviewed by dermatopathologist. Differential based on path findings is Drury's disease, Ninfa-Ninfa disease, Darier disease and eczematous [...] PT, OT and speech therapy. Post-Hospital Care: Long Term Facility in [facility]. She has been accepted by Hanny Killian. [...] Ct Angiogram Head Neck Result Date: 05/20/[address] [address] NAME: GERMAINE BARBOUR DATE: 05/20/2018 : 0 1945 PT GENDER: F ROOM: IN Physician: ORALIA NEVAREZ PID3: [id number] CC TO: MR#: PROCEDURE: CTA BRAIN AND [...] thyroid gland. 1 :03 PM at workstation [id number] Documentation assistance provided by Jolie Pimentel, medical student. I repeated all eleme nts of the history and physical and have edited all parts of the note to reflect my evaluati on. Electronically signed: Oralia Nevarez MD 05/21/2018 13:18 DATE OF SERVICE: 05/21/2018 rinidad Miranda, Health Sales And Service Associate - 05/20/2018 3:[facility] [place] [place] [facility] Germaine. Working on transport options. [facility] transport is working on transport for Friday by 11. rinidad Miranda, Health Unit Coordin ator - 05/20/2018 10:55 AM PSTSpoke with Najma Xiong-daughter. She has made preliminary arr angements for Germaine to be placed at [facility] in [place]. Will make phone contact with them today. Faxed referral notes to silver solderer for review. El ectronically signed by Trinidad Miranda Health Sales And Service Associate at 05/20/2018 2:26 PM PSTAlexandria castrejon, Oralia [...] on trunk, back, palms. biop sied at [facility] in Jan 2018. Reviewed by dermatopathologist. Differential based on path findings is Drury's disease, Ninfa-Ninfa disease, Darier disease and eczematous [...] resources, housing resources, CHW support. Post-Hospital Care: Long Term Facility vs [facility] depending on improvement in cognitive i mpairment. Subjective Germaine pulled out IV yesterday and it was left out and ceftriaxone given IM. Daughter Elana vu who lives in [place] has called and is interested in bringing Germaine closer to her. July ischarge to SNF near [facility]. Germaine has no complaints. Right [...] Ct Head Wo Contrast Result Date: 05/18/2018 [place] [address] NAME: GERMAINE BARBOUR Jesus DATE: 05/18/2018 : 0 1945 PT GENDER: F ROOM: ER Physician: ORALIA NEVAREZ PID3: [id number] CC TO: MR#: This report includes an [...] evaluation with MRI if indicated. at workstation [employer] ADDENDUM #1 Add communi cation: Communication: Relayed findings to Dr. Nevarez on 05/18/18 at 8737. Gave her contact info for Dr. Nieves./earle Transcribed by: EARLE at 05/18/2018 5:37 PM at workstation [employer] Xr Chest Ap Portable Result Date: 05/18/[address] [address] NAME: ANTONIETTA BLANKENSHIP GERMAINE Jesus DATE: 05/18/2018 : 0 1945 PT GENDER: F ROOM: ER Physician: ORALIA NEVAREZ PID3: [id number] CC TO: MR#: PROCEDURE: AP PORTABLE CHEST [...] Vas Carotid Duplex Bilateral Result Date: 05/19/[address] [address] NAME: GERMAINE BARBOUR DATE: 05/19/2018 : 0 1945 PT GENDER: F ROOM: IN Physician: ORALIA NEVAREZ PID3: [id number] CC TO: MR#: PROCEDURE: ULTRASOUND BILATERAL CAROTID [...] Right 3 + Vw Result Date: 05/18/[address] [address] NAME: GERMAINE BARBOUR DATE: 05/18/2018 : 0 1945 PT GENDER: F ROOM: ER Physician: ORALIA NEVAREZ PID3: [id number] CC TO: MR#: PROCEDURE: RIGHT HAND - [...] calcifications and sof t tissue swelling. at [employer] ion [facility]-[id number] Electronically signed: Oralia Nevarez MD 05/20/2018 10:37 [...] on trunk, back, palms. biop sied at [facility] in Jan 2018. Reviewed by dermatopathologist. Differential based on path findings is Drury's disease, Ninfa-Ninfa disease, Darier disease and eczematous process. - plan to consult [facility] derm by phone prior to discharge. [...] and Trey araujo will take shuttle to [place] to take care of their dog. Review [...] in right hand but not light touch. [place] ed to person but not place or [...] pH, Urine 5.5 5.0 - 8.0 Specific [place] 1.025 1.005 - 1.030 Protein, Urine 30 [...] Ct Head Wo Contrast Result Date: 05/18/2018 [place] [address] NAME: GERMAINE BARBOUR DATE: 05/18/2018 : 0 1945 PT GENDER: F ROOM: ER Physician: ORALIA NEVAREZ PID3: [id number] CC TO: MR#: This report includes an [...] evaluation with MRI if indicated. at workstation [id number] ADDENDUM #1 Add communi cation: Communication: Relayed findings to Dr. Nevarez on 05/18/18 at 4690. Gave her contact info for Dr. Nieves./hs Transcribed by: HS at 05/18/2018 5:37 PM at workstation [id number] Xr Chest Ap Portable Result Date: 05/18/[address] [address] NAME: GERMAINE BARBOUR DATE: 05/18/2018 : 0 1945 PT GENDER: F ROOM: ER Physician: ORALIA NEVAREZ PID3: [id number] CC TO: MR#: PROCEDURE: AP PORTABLE CHEST [...] evidence of acute cardiopulmonary disease. at workstation [id number] Xr Hand Right 3 + Vw Result Date: 05/18/[address] [address] NAME: GERMAINE BARBOUR DATE: 05/18/2018 : 0 1945 PT GENDER: F ROOM: ER Physician: ORALIA NEVAREZ PID3: [id number] CC TO: MR#: PROCEDURE: RIGHT HAND - [...] calcifications and sof t tissue swelling. at [employer] [facility]-[id number] Electronically signed: Oralia Nevarez MD 05/19/2018 12:47 [...] D?MRN: | | | | | | [id number] | | | [id number] | | | riteri | | | [...] | | | St. | | | [place] | | | y | | | [...] | | | St. | | | [place] | | | y | | | [...] | | | St. | | | [place] | | | y H. | | [...] | | | St. | | | [place] | | | y H. | | [...] | | | St. | | | [place] | | | y H. | | [...] | | | St. | | | [place] | | | y H. | | [...] | | | [place] | | | [facility], | | | [place] - | | | info@c | | [...] | [address] | [place] [address] | [phone] | | HOSPITAL LABORATORY | | | [...] | + + + + + | [facility] | [address] | [place] [address] | [phone] | | HOSPITAL LABORATORY | | | [...] | Creatinine | 0.76 | >0.60-<1.30 | [facility] | | | | | mg/dL | COMMUNITY | | | | | | HOSPITAL | | | | | | LABORATORY | | + + + + + + | eGFR if not | >60Comment: GLOMERULAR | >=60 | [place] | | | | FILTRATION | mL/min/1.73m2 | [facility] | | | THAI | RATE,ESTIMATED | | HOSPITAL | | | | mL/min/1.45f7Ycdy than | | LABORATORY | | | [...] 7.8 (L) | 8.3 - 10.0 | [facility] | | | | | mg/dL | [...] | + + + + + | [facility] | [address] | [place] [address] | [phone] | | HOSPITAL LABORATORY | | | | + + + + + CT Angiogram Head Neck (05/20/2018 12:07 PM PST) + + | Specimen | + + | | + + + + + | Narrative | Performed At | + + + | [address] | [facility] | | [place], [place] [address] | | | NAME: GERMAINE BARBOUR Jesus DATE: 05/20/2018 : | | | 1945 PT GENDER: F ROOM: IN Physician: ORALIA | | | ROQUE PID3: [id number] CC TO: MR#: | | | PROCEDURE: [...] | | 05/20/2018 1:03 PM at workstation [id number] | | + + + + + | Procedure Note | + + | Javier Gay Results In - 05/20/2018 1:15 PM [facility] | | [address] | | [place], [place] [address] | | | | | | NAME: GERMAINE BARBOUR DATE: 05/20/2018 | | : 1945 PT GENDER: F ROOM: IN | | Physician: ORALIA NEVAREZ PID3: [id number] | | CC TO: MR#: | | [...] Testing Performed at: [facility] CLIA: [id number] - [address] | REFERENCE LAB | | [place] [address] | [facility] | + + + + + + + + | Performing | Address | City/State/Zipcode | Phone Number | | Organization | | | | + + + + + | REFERENCE LAB | [address] | [place] [address] | [phone] | | [facility] | | | | + + + + + | REFERENCE LAB | [address] | [place] [address] | [phone] | | [facility] | | | | [...] | + + + + + | [facility] | [address] | [place] [address] | [phone] | | HOSPITAL LABORATORY | | | [...] | + + + + + | [facility] | [address] | [place] [address] | [phone] | | HOSPITAL LABORATORY | | | [...] | + + + + + | [facility] | [address] | [place] [address] | [phone] | | HOSPITAL LABORATORY | | | [...] | | | FILTRATION | mL/min/1.73m2 | [facility] | | | THAI | RATE,ESTIMATED | | HOSPITAL | | | | mL/min/1.58b1Olnd than | | LABORATORY | | | [...] | + + + + + | [facility] | [address] | [place] [address] | [phone] | | HOSPITAL LABORATORY | | | [...] + + + + + | [facility] | [address] | [place] [address] | [phone] | | HOSPITAL LABORATORY | | | | + + + + + VAS Carotid Duplex Bilateral (05/19/2018 8:37 AM PST) + + | Specimen | + + | | + + + + + | Narrative | Performed At | + + + | [address] | [facility] | | [place], [place] [address] | | | NAME: GERMAINE BARBOUR Jesus DATE: 05/19/2018 : | | | 1945 PT GENDER: F ROOM: IN Physician: ORALIA | | | ROQUE PID3: [id number] CC TO: MR#: | | | PROCEDURE: [...] | | 05/19/2018 3:20 PM at workstation [id number] | | + + + + + | Procedure Note | + + | Victor Hugo, Rad Results In - 05/19/2018 3:50 PM [facility] | | [address] | | [place], [place] [address] | | | | | | NAME: GERMAINE BARBOUR Jesus DATE: 05/19/2018 | | : 1945 PT GENDER: F ROOM: IN | | Physician: ORALIA NEVAREZ PID3: [id number] | | CC TO: MR#: | | [...] | | | at | | workstation [id number] | + + + +---------+ + + [...] | + + + + + | [facility] | [address] | [place] [address] | [phone] | | HOSPITAL LABORATORY | | | [...] not | >60Comment: GLOMERULAR | >=60 | [facility] | | | | FILTRATION | mL/min/1.73m2 | [facility] | | | THAI | RATE,ESTIMATED | | HOSPITAL | | | | mL/min/1.19d5Rnpc than | | LABORATORY | | | [...] 7.9 (L) | 8.3 - 10.0 | [facility] | | | | | mg/dL | [facility] | | | | | [...] | + + + + + | [facility] | [address] | [place] [address] | [phone] | | HOSPITAL LABORATORY | | | [...] | + + + + + | [facility] | [address] | [place] [address] | [phone] | | HOSPITAL LABORATORY | | | [...] | [address] | [place] [address] | [phone] | | HOSPITAL LABORATORY | | | | + + + + + XR Hand Right 3 + Vw (05/18/2018 4:55 PM PST) + + | Specimen | + + | | + + + + + | Narrative | Performed At | + + + | [address] | [facility] | | [place], [place] [address] | | | NAME: ANTONIETTAKary BLANKENSHIPGERMAINE DATE: 05/18/2018 : | | | 1945 PT GENDER: F ROOM: ER Physician: ORALIA | | | ROQUE PID3: [id number] CC TO: MR#: | | | PROCEDURE: [...] | | at | | | workstation [id number] | | + + + + + | Procedure Note | + + | Victor Hugo, Javier Results In - 05/18/2018 5:05 PM [facility] | | [address] [facility] | | [place], [place] [address] | | | | | | NAME: ANTONIETTA BLANKENSHIPGERMAINE DATE: 05/18/2018 | | : 1945 PT GENDER: F ROOM: ER | | Physician: ORALIA NEVAREZ PID3: [id number] | | CC TO: MR#: | | [...] | | | at workstation | | [id number] | | | | | | | [...] Performed At | + + + | [address] | [facility] | | [place], [place] [address] | | | NAME: GERMAINE BARBOUR Jesus DATE: 05/18/2018 : | | | 1945 PT GENDER: F ROOM: ER Physician: ORALIA | | | ROQUE PID3: [id number] CC TO: MR#: | | | This [...] | with MRI if indicated. at workstation [id number] ADDENDUM #1 | | | Add communication: Communication: Relayed findings to | | | Roque on 05/18/18 at 2361. Gave her contact info for Dr. Nieves./earle | | | Transcribed by: EARLE at 05/18/2018 5:37 PM at workstation [id number] | | + + + + + | Procedure Note | + + | Victor Hugo, Rad Results In - 05/18/2018 6:05 PM [facility] | | [address] [facility] | | [place], [place] [address] | | | | | | NAME: GERMAINE BARBOUR DATE: 05/18/2018 | | : 1945 PT GENDER: F ROOM: ER | | Physician: ORALIA NEVAREZ PID3: [id number] | | CC TO: MR#: | | [...] | | | at workstation | | [facility]-[id number] | | | | ADDENDUM #1 | | | | | | Add communication: | | Communication: Relayed findings to Dr. Nevarez on 05/18/18 at 1736. Gave her | | contact info for Dr. Nieves./ | | | | Transcribed by: at 05/18/2018 5:37 PM | | | | at workstation | | [id number] | + + + +---------+ + + [...] | + + + + + | [facility] | [address] | [place] [address] | [phone] | | HOSPITAL LABORATORY | | | [...] - 1.030 | [facility] | | | [place] | | | COMMUNITY | | | [...] | + + + + + | [facility] | [address] | [place] [address] | [phone] | | HOSPITAL LABORATORY | | | [...] | + + + + + | [facility] | [address] | [place] [address] | [phone] | | HOSPITAL LABORATORY | | | | + + + + + XR Chest AP Portable (05/18/2018 3:34 PM PST) + + | Specimen | + + | | + + + + + | Narrative | Performed At | + + + | [address] | [facility] | | [place], [place] [address] | | | NAME: GERMAINE BARBOUR DATE: 05/18/2018 : | | | 1945 PT GENDER: F ROOM: ER Physician: ORALIA | | | ROQUE PID3: [id number] CC TO: MR#: | | | PROCEDURE: [...] evidence of acute cardiopulmonary disease. at workstation [id number] | | | | | + + + + + | Procedure Note | + + | Victor Hugo, Rad Results In - 05/18/2018 3:50 PM [facility] | | [address] [facility] | | [place], [place] [address] | | | | | | NAME: GERMAINE BARBOUR DATE: 05/18/2018 | | : 1945 PT GENDER: F ROOM: ER | | Physician: ORALIA NEVAREZ PID3: [id number] | | CC TO: MR#: | | [...] | | | at | | workstation [id number] | | | | | | | [...] | + + + + + | [facility] | [address] | [place] [address] | [phone] | | HOSPITAL LABORATORY | | | | + + + + + Troponin I (05/18/2018 3:11 PM PST) + +-------+ + + + | Component | Value | Ref Range | Performed | Pathologist | | | | | At | Signature | + +-------+ + + + | Troponin I | 0.030 | 0.000 - 0.090 | [facility] | | | | | ng/mL | [...] hours are at higher risk of or [place] at 48 | HOSPITAL | | hours [...] | + + + + + | [facility] | [address] | [place] [address] | [phone] | | HOSPITAL LABORATORY | | | [...] (H) | 0 - 125 pg/mL | [facility] | | | | | | COMMUNITY [...] | + + + + + | [facility] | [address] | [place] [address] | [phone] | | HOSPITAL LABORATORY | | | [...] | + + + + + | [facility] | [address] | [place] [address] | [phone] | | HOSPITAL LABORATORY | | | [...] [facility] | [address] | [place] [address] | [phone] | | HOSPITAL LABORATORY | | | [...] 21 | 5 - 26 mg/dL | [facility] | | | | | | COMMUNITY | | | | | | HOSPITAL | | | | | | LABORATORY | | + + + + + + | Creatinine | 0.98 | >0.60-<1.30 | [facility] | | | | | mg/dL | [facility] | | | | | | HOSPITAL | | | | | | LABORATORY | | + + + + + + | eGFR if not | 56 (L)Comment: | >=60 | [facility] | | | | GLOMERULAR FILTRATION | mL/min/1.73m2 | [facility] | | | THAI | RATE,ESTIMATED | | HOSPITAL | | | | mL/min/1.52a9Zoji than | | LABORATORY | | | [...] | + + + + + | [facility] | [address] | [place] [address] | [phone] | | HOSPITAL LABORATORY | | | [...] | + + + + + | [facility] | [address] | [place] [address] | [phone] | | HOSPITAL LABORATORY | | | [...]
--- OUTSIDE RECORDS SUMMARY | ~2019-03-03 | XMS | Encounter Summary ---
Demographics + + + | Address | [address] ADDRESS | | | [place] [address] | + + + | Home Phone | | + + + | Preferred Language | Unknown | + + + | Marital Status | | + + + | Buddhist Affiliation | 1077 | + + + | Race | Unknown | + + + | Ethnic Group | Unknown | + + + Author + + + | Author | [facility] | | | and [place] | + + + | Organization | [facility] | | | and [place] | + + + | Address | Unknown | + + + | Phone | Unavailable | + + + Support + + + + + | Name | Relationship | Address | Phone | + + + + + | Hector Mack | ECON | [address] | | | | | [place] [address] | | + + + + + | Najma Krishnamurthy | ECON | Unknown | | + + + + + | Hector Mack | ECON | [address] | | | | | [place] | | | | | [address] | | + + + + + | Najma Sanches | ECON | Unknown | | + + + + + Care Team Providers + +------+ + | Care Global Marketing Operations Manager Name | Role | Phone | + +------+ + PCP | Unavailable | + +------+ + Encounter Details +--------+ + + + + | Date | Type | Department | Care Team | Description | +--------+ + + + + | 07/25/ | Hospital | [facility] | Tuan Chan, | LUMBOSACRAL NEURITIS | | 2004 | Encounter | CONVERSION [address] | MD 2010 | [address] | | | | [address] | [facility] [place] | | | | | [place], [place] | [address] | | | | | [address] | [phone] | | | | | [phone] | | | +--------+ + + + [...]
--- OUTSIDE RECORDS SUMMARY | ~2019-03-03 | XMS | Encounter Summary ---
Demographics + + + | Address | [address]AD ADDRESS | | | [place] [address] | + + + | Home Phone | | + + + | Preferred Language | Unknown | + + + | Marital Status | | + + + | Buddhist Affiliation | 1077 | + + + | Race | Unknown | + + + | Ethnic Group | Unknown | + + + Author + + + | Author | [facility] | | | and [place] | + + + | Organization | [facility] | | | and [place] | + + + | Address | Unknown | + + + | Phone | Unavailable | + + + Support + + + + + | Name | Relationship | Address | Phone | + + + + + | Hector Mack | ECON | [address] | | | | | [place] [address] | | + + + + + | Najma Krishnamurthy | ECON | Unknown | | + + + + + | Hector Mack | ECON | [address] | | | | | [place] | | | | | [address] | | + + + + + | Najma Sanches | ECON | Unknown | | + + + + + Care Team Providers + +------+ + | Care Electricity Trader Name | Role | Phone | + +------+ + PCP | Unavailable | + +------+ + Encounter Details +--------+ + + + + | Date | Type | Department | Care Team | Description | +--------+ + + + + | 01/21/ | Hospital | [facility] | Lalo Londono MD | | | 2004 | Encounter | MED CTR XRAY [address] | [address] | | | | | [place] | [address] | | | | | [place] [address] | [id number] | | | | | [phone] | | | +--------+ + + + [...]
--- OUTSIDE RECORDS SUMMARY | ~2019-03-03 | XMS | Encounter Summary ---
Demographics + + + | Address | [address] | | | [place] [address] | + + + | Home Phone | | + + + | Preferred Language | Unknown | + + + | Marital Status | | + + + | Cheondoism Affiliation | PRO | + + + | Race | White | + + + | Ethnic Group | Not or | + + + Author + + + | Author | [facility] | + + + | Organization | [facility] | + + + | Address | Unknown | + + + | Phone | Unavailable | + + + Support + + + + + | Name | Relationship | Address | Phone | + + + + + | Hector Mack | ECON | [address] | | | | | [place] | | | | | [address] | | + + + + + Care Team Providers + +------+ + | Care Sports Management Internship Name | Role | Phone | + [...] | Activity | [address] | [address] | | | | | [address] Mailcode: RPB[address] | [place], [place] | | | | | [place], [place] | [address] | | | | | [address] | [phone] | | | | | [phone] | | | +--------+ + + + [...]
--- OUTSIDE RECORDS SUMMARY | ~2019-03-03 | XMS | Encounter Summary ---
Demographics + + + | Address | BAD ADDRESS | | | [place] [address] | + + + | Home Phone | | + + + | Preferred Language | Unknown | + + + | Marital Status | | + + + | Latter-Day Affiliation | 1077 | + + + | Race | Unknown | + + + | Ethnic Group | Unknown | + + + Author + + + | Author | [facility] | | | and [place] | + + + | Organization | [facility] | | | and [...] | | | | | [place] [address] | | + + + + + | Najma Krishnamurthy | ECON | Unknown | | + + + + + | Hector Mack | ECON | [address] | | | | | [place] | | | | | [address] | | + + + + + | Najma Sanches | ECON | Unknown | | + + + + + Care Team Providers + +------+ + | Care Fisher Quahog Name | Role | Phone | + +------+ + PCP | Unavailable | + +------+ + Encounter Details +--------+ + + + + | Date | Type | Department | Care Team | Description | +--------+ + + + + | 12/22/ | Hospital | [facility] | Tuan Chan, | | | 2008 | Encounter | HOSPITAL XRAY 900 | [address] [place] [address] | | | | | [place] | [place], [place] | | | | | [place], [place] | [address] | | | | | [address] | [phone] | | | | | [phone] | | | +--------+ + + + [...]
--- OUTSIDE RECORDS SUMMARY | ~2019-03-03 | XMS | Encounter Summary ---
Demographics + + + | Address | BAD ADDRESS | | | [place] [address] | + + + | Home Phone [...] Author | [facility] | | | and [place] | + + + | Organization | [facility] | | [...] | | | | | [place] [address] | | + + + + + | Najma Krishnamurthy | ECON | Unknown | | + + + + + | Hector Mack | ECON | [address] | | | | | [place] | | | | | [address] | | + + + + + | Najma Sanches | ECON | Unknown | | + + + + + Care Team Providers + +------+ + | Care Manager Nuclear Name | Role | Phone | + +------+ + PCP | Unavailable | + +------+ + Encounter Details +--------+ + + + + | Date | Type | Department | Care Team | Description | +--------+ + + + + | 04/27/ | Hospital | [facility] | | | | 1997 - | Encounter | MED CTR CARDIAC | | | | | | SERVICES [address] | | | | 06/16/ | | [place], | | | | 1997 | | [place] [address] | | | +--------+ + + + [...]
--- OUTSIDE RECORDS SUMMARY | ~2019-03-03 | XMS | Encounter Summary ---
Demographics + + + | Address | [address] | | | [place] [address] | + + + | Home Phone | | + + + | Preferred Language | Unknown | + + + | Marital Status | | + + + | Methodist Affiliation | PRO | + + + [...] [place] | | | | | [address] | | + + + + + Care Team Providers + +------+ + | Care Data Processing Auditor Name | Role | Phone | + +------+ + | Tuan Chan MD | PCP | | + +------+ + Encounter Details +--------+ + + + + | Date | Type | Department | Care Team | Description | +--------+ + + + + | 02/06/ | Documentati | Anesthesiology | Unknown . | | | 2005 | on | [address] | | | | | | [place], | | | | | | [place] [address] | | | +--------+ + + + [...] | + + | 02/06/2006 11:10 AM [facility] Anesthesia PostOp Report | | | | Patient: [facility] Rec: [id number] Sex F Bdate: 1945 | | Date/Time Data | | Entered Into [facility] | | Anesth PostOp | | Surgery Date [id number] 02/06/06 11:10 | | Anesthesiologist OLEG ASCENCIO 02/06/06 11:10 | | Resident Anesthesiolog JULIEN FRYE 02/06/06 11:10 | | | + + documented in this encounter Visit Diagnoses Not on filedocumented in this encounter"
--- OUTSIDE RECORDS SUMMARY | ~2019-03-03 | XMS | Encounter Summary ---
Demographics + + + | Address | [address] | | | [place] [address] | + + + | Home Phone | | + + + | Preferred Language | Unknown | + + + | Marital Status | | + + + | Hinduism Affiliation | PRO | + + + | Race | White | + + + | Ethnic Group | Not or | + + + Author + + + | Author | [facility] | + + + | Organization | [facility] | + + + | Address | Unknown | + + + | Phone | Unavailable | + + + Support + + + + + | Name | Relationship | Address | Phone | + + + + + | Hector Mack | ECON | [address] | | | | | [place] | | | | | [address] | | + + + + + Care Team Providers + +------+ + | Care Roofing Layer Name | Role | Phone | + [...] | Eugenio Mailcode: [id number] | [place], | | | | | [place], [place] | [place] [address] | | | | | [address] | [phone] | | | | | [phone] | | | +--------+ + + + [...]
--- OUTSIDE RECORDS SUMMARY | ~2019-03-03 | XMS | Encounter Summary ---
Demographics + + + | Address | BAD ADDRESS | | | [place] [address] | + + + | Home Phone | | + + + | Preferred Language | Unknown | + + + | Marital Status | | + + + | Gnosticism Affiliation | 1077 | + + + | Race | Unknown | + + + | Ethnic Group | Unknown | + + + Author + + + | Author | [facility] | | | and [place] | + + + | Organization | [facility] | | | and [place] | + + + | Address | Unknown | + + + | Phone | Unavailable | + + + Support + + + + + | Name | Relationship | Address | Phone | + + + + + | Hector Mack | ECON | [address] | | | | | [place] [address] | | + + + + + | Najma Krishnamurthy | ECON | Unknown | | + + + + + | Hector Mack | ECON | [address] | | | | | [place] | | | | | [address] | | + + + + + | Najma Sanches | ECON | Unknown | | + + + + + Care Team Providers + +------+ + | Care Departmental Shipping Clerk Name | Role | Phone | + +------+ + | Tuan Chan MD | PCP | | + +------+ + Encounter Details +--------+ + + + + | Date | Type | Department | Care Team | Description | +--------+ + + + + | 05/18/ | Hospital | [facility] | Oralia Koo | | | 2019 | Encounter | HOSPITAL GROUND | [address] | | | | | [address] | MEDICAL [facility] | | | | | [address] | [place] [address] | | | | | [place], [place] | [phone] | | | | | [address] | | | | | | [phone] | | | +--------+ + + + [...]
--- OUTSIDE RECORDS SUMMARY | ~2019-03-03 | XMS | Clinical Summary ---
Demographics + + + | Address | [address] | | | [place] [address] | + + + | Home Phone | | + + + | Preferred Language | Unknown | + + + | Marital Status | | + + + | Gnosticist Affiliation | PRO | + + + | Race | White | + + + | Ethnic Group | Not or | + + + Author + + + | Author | [facility] | + + + | Organization | [facility] | + + + | Address | Unknown | + + + | Phone | Unavailable | + + + Support + + + + + | Name | Relationship | Address | Phone | + + + + + | Hector Mack | ECON | [address] | | | | | [place] | | | | | [address] | | + + + + + Care Team Providers + +------+ + | Care Tire Molder Name | Role | Phone | + +------+ + | Tuan Chan MD | PCP | | + +------+ + Source Comments AMY is fully live on both [facility] Ambulatory and [facility] InPatient.[facility] Allergies + + + + + + | Active Allergy | Reactions | Severity | Noted | Comments | | | | | Date | | + + + + + + | Codeine | Hives, Rash | | 11/21/19 | | | | | | 06 | | + + + + + + Medications + + + +---------+------+------+-------+ | Medication | Sig | Dispensed | Refills | Star | End | Statu | | | | | | t | Date | s | | | | | | Date | | | + + + +---------+------+------+-------+ | ALBUTEROL 90 | inhale 1 puff by | | 0 | | | Activ | | MCG/ACTUATION | inhalation route | | | | | e | | AEROSOL INHALER | every 4-6 hours as | | | | | | | | needed | | | | | | + + + +---------+------+------+-------+ | bumetanide 1 mg | 1 tab daily | | 0 | | | Activ | | Oral Tablet | | | | | | e | + + + +---------+------+------+-------+ | buPROPion SR | 1 tablet daily | | 0 | | | Activ | | (WELLBUTRIN SR) 150 | | | | | | e | | mg Oral Tablet | | | | | | | | Sustained Release | | | | | | | + + + +---------+------+------+-------+ | lisinopril 5 mg | take 1 tablet (5 mg) | | 0 | | | Activ | | Oral Tablet | by oral route once | | | | | e | | | daily | | | | | | + + + +---------+------+------+-------+ | | Take 1 Tab by mouth | | 0 | | | Activ | | oxyCODONE-acetaminop [...] | | + + + +---------+------+------+-------+ | morphine ER 60 mg | Take 60 mg by mouth | | 0 | | | Activ | | Oral tablet extended | once daily. | | | | | e | | release | | | | | | | + + + +---------+------+------+-------+ | potassium chloride | Take 10 mEq by mouth | | 0 | | | Activ | | SR 10 mEq Oral | once daily. | | | | | e | | tablet,ER | | | | | | | | particles/crystals | | | | | | | + + + +---------+------+------+-------+ | metoprolol | Take 50 mg by mouth | | 0 | | | Activ | | succinate 50 mg Oral | once daily. | | | | | e | | tablet extended | | | | | | | | release 24 hr | | | | | | | + + + +---------+------+------+-------+ | acetaminophen 325 | Take 1-2 Tabs by | | 0 | 01/2 | | Activ | | mg Oral tablet | mouth every six | | | 5/20 | | e | | | hours as needed. | | | 13 | | | + + + +---------+------+------+-------+ | white | Instill 1 Each into | 3.5 g | 0 | /2 | | Activ | | petrolatum-mineral | the left eye once | | | 20 | | e | | oil 83-15 % | daily at bedtime. | | | 13 | | | | Ophthalmic Ointment | | | | | | | + + + +---------+------+------+-------+ | triamcinolone | Apply to affected | [...] + +---------+------+------+-------+ | clopidogrel | Take 1 Tab by mouth | 1 Tab | 0 | /2 | | Activ | | (PLAVIX) 75 mg Oral | once daily. Do not | | | 5/20 | | e | | tablet | re-start this | | | 13 | | | | | medication until | | | | | | | | 04/29/2012. | | | | | | + + + +---------+------+------+-------+ Active Problems + + + | Problem | Noted Date | + + + | Cervical spine fracture | 04/21/2012 | + + + | [...] + + + + | Name | Administration Dates | Next Due | + + + [...] + + + + + | Pneumococcal | | 04/24/2012 | | | vaccination (2 of 2 | 4 | | | | - PCV13) | | | | + + + + + | Influenza (Flu) | | | | | vaccination (#1) | 9 | | | + + + + + Results Not on filefrom Last 3 Months Insurance + +--------+ +--------+ + +--------+ | Payer | Benefi | Subscriber | Effect | Phone | Address | Type | | | t Plan | ID | irish | | | | | | / | | Dates | | | | | | Group | | | | | | + +--------+ +--------+ + +--------+ | MEDICARE | MEDICA | xxxxxxxxxx | 05/29/18 | [phone] | [address] | [address] | | | RE A & | | 94-Pre | 1 | [address] | re | | | B | | sent | | [place] | | | | | | | | [address] | | + +--------+ +--------+ + +--------+ | [place]ICAID [place] | OHP | xxxxxxxx | 07/01/19 | [phone] | [address] | [address] | | | PLUS | | 10-Pre | 6 | [address] | id | | | OPEN | | sent | | [place] | | | | CARD | | | | [id number] | | + +--------+ +--------+ + +--------+ + +--------+ +--------+ + + | Guarantor Name | Accoun | Relation to | Date | Phone | Billing Address | | | t Type | Patient | of | | | | | | | | | | + +--------+ +--------+ + + | Germaine Heard | Person | Self [birth year] [address] | | | al/Fam | | 1946 | [phone] | [address] [place] | | | demetrius | | | 4 (Home) | [address] | + +--------+ +--------+ + + Advance Directives + + + + + | Type | Date Recorded | Patient | Explanation | | | | Sales Development Coordinator | | + + + + + | Advance | | | | | Directives and | | | | | Living Will | | | | + + + + + | Power of | | | | | Efficiency Manager | | | | + + + + + + + + + + | Code Status | Date | Date | Comments | | | Activated | Inactivated | | + + + + + | DNR/DNI | 04/22/2012 | 04/24/2012 | | | | 7:09 AM | 5:31 PM | | + + + + + + + + +---+ | | | | | + + + +---+ | Full Code | 03/12/2011 | 03/13/2011 | | | | 3:21 PM | 3:35 PM | | + + + +---+ + + + +---+ | | | | | + + + +---+ | Full Code | 03/12/2011 | 03/12/2011 | | | | 8:06 AM | 3:21 PM | | + + + +---+ + + + +---+ | | | | | + + + +---+ | Full Code | 05/10/2008 | 05/11/2008 | | | | 2:31 PM | 5:20 PM | | + + + +---+
--- OUTSIDE RECORDS SUMMARY | ~2019-03-03 | XMS | Encounter Summary ---
Demographics + + + | Address | [address] | | | [place] [address] | + + + | Home Phone [...] [place] | | | | | [address] | | + + + + + Care Team Providers + +------+ + | Care Straight Cutter Name | Role | Phone | [...] as of this encounter Progress Notes Interface, Academic Counselor In - 11/28/2005 2:08 AM PDT [id number] [place] [id number] Clinic Date: 11/22/2005 Clinic: [facility] [...] conference presentation. Herberth Ayala M.D. [place] / [id number] / [id number] / [id number] / [id number] Electronically signed by Herberth Brambila 11-27-2005 02:01:34 PM documented i n this encounter Plan of Treatment Not on filedocumented as of this encounter Visit Diagnoses Not on filedocumented in this encounter"
--- OUTSIDE RECORDS SUMMARY | ~2019-03-03 | XMS | Encounter Summary ---
Demographics + + + | Address | BAD ADDRESS | | | [place] [address] | + + + | Home Phone | | + + + | Preferred Language | Unknown | + + + | Marital Status | | + + + | Jehovah'S Witness Affiliation | 1077 | + + + | Race | Unknown | + + + | Ethnic Group | Unknown | + + + Author + + + | Author | [facility] | | | and [place] | + + + | Organization | [facility] | | [...] | | | | | [place] [address] | | + + + + + | Najma Krishnamurthy | ECON | Unknown | | + + + + + | Hector Mack | ECON | [address] | | | | | [place] | | | | | [address] | | + + + + + | Najma Sanches | ECON | Unknown | | + + + + + Care Team Providers + +------+ + | Care Investment Professional Name | Role | Phone | + +------+ + PCP | Unavailable | + +------+ + Encounter Details +--------+ + + + + | Date | Type | Department | Care Team | Description | +--------+ + + + + | 04/22/ | Hospital | [facility] GENER[facility] IP | Conversion | Pain | | 2012 | Encounter | CONVERSION [address] | Transaction, | | | | | [address] [address] | Provider Unknown | | | | | [place], [place] | [phone] | | | | | [address] | | | | | | [phone] | | | +--------+ + + + [...]
--- OUTSIDE RECORDS SUMMARY | ~2019-03-03 | XMS | Encounter Summary ---
Demographics + + + | Address | [address] | | | [place] [address] | + + + | Home Phone [...] | Author | [facility] | + + + | Organization | [facility] | + + + | Address | Unknown | + + + | Phone | Unavailable | + + + Support + + + + + | Name | Relationship | Address | Phone | + + + + + | Hector Mack | ECON | [address] | | | | | [place] | | | | | [address] | | + + + + + Care Team Providers + +------+ + | Care Piece Marker Small Arms Name | Role | Phone | + [...] 07/14/ | Refill | Urology Adult | Lemuel, Noe, | Refill Request | | 2007 | | [address] | MD [address] | ([place] ) | | | | Mailcode: CH10U | [place], [place] | | | | | [facility] | [address] | | | | | and Healing, | [phone] | | | | | [facility] | | | | | | Floor [place], [place] | | | | | | [address] | | | | | | [phone] | | | +--------+--------+ + + + [...]
--- OUTSIDE RECORDS SUMMARY | ~2019-03-03 | XMS | Encounter Summary ---
Demographics + + + | Address | BAD ADDRESS | | | [place] [address] | + + + | Home Phone | | + + + | Preferred Language | Unknown | + + + | Marital Status | | + + + | Church Affiliation | 1077 | + + + | Race | Unknown | + + + | Ethnic Group | Unknown | + + + Author + + + | Author | [facility] | | | and [place] | + + + | Organization | [facility] | | | and [...] | | | | | [place] [address] | | + + + + + | Najma Krishnamurthy | ECON | Unknown | | + + + + + | Hector Mack | ECON | [address] | | | | | [place] | | | | | [address] | | + + + + + | Najma Sanches | ECON | Unknown | | + + + + + Care Team Providers + +------+ + | Care Driver/Guide Name | Role | Phone | + [...] | | GENERIC [address] | [place] | | | 10/06/ | | Zaki Vidal, | [phone] | | | 1994 | | [place] | | | | | | [phone] | | | +--------+ + + + [...]
--- OUTSIDE RECORDS SUMMARY | ~2019-03-03 | XMS | Encounter Summary ---
Demographics + + + | Address | [address] | | | [place] [address] | + + + | Home Phone [...] [place] | | | | | [address] | | + + + + + Care Team Providers + +------+ + | Care Dairy Nutrition Specialist Name | Role | Phone | [...] (Patients | | | | Surgery at [facility] [address] | | has some | | | | [address] | | concerns, pain | | | | Mailcode: [facility] | | issues) | | | | [facility] | | | | | | and Healing, | | | | | | Building [address]th | | | | | | Floor [place], [place] | | | | | | [address] | | | | | | [phone] | | | +--------+ + + + [...]
--- OUTSIDE RECORDS SUMMARY | ~2019-03-03 | XMS | Encounter Summary ---
Demographics + + + | Address | [address] | | | [place] [address] | + + + | Home Phone | | + + + | Preferred Language | Unknown | + + + | Marital Status | | + + + | Adventist Affiliation | PRO | + + + [...] [place] | | | | | [address] | | + + + + + Care Team Providers + +------+ + | Care Retail Seasonal Specialist Name | Role | Phone | [...] Description | +--------+---------+ + + + | 11/03/ | Office | Dermatology | uJlia Buckley | 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 [facility] | [place] | (Primary Dx); | | | | Floor [address] | [address] [place], | Encounter for | | | | Ave Mailcode: CH16D | [place] [address] | Long-Term (Current) | | | | [facility] | [phone] | Use of Other | | | | and Healing, | | Medications | | | | Building | | | | | | Floor [place], [place] | | | | | | [address] | | | | | | [phone] | | | +--------+---------+ + + + [...] +---------+ + + | Blood Pressure | 118/60 | 11/03/2008 10:04 AM | | | | | PDT | | + +---------+ + + | Pulse | 64 | 11/03/2008 10:04 AM | | | | | PDT | | + +---------+ + + | Temperature | - | - | | + +---------+ + + | Respiratory Rate | 12 | 11/03/2008 10:04 AM | | | | | PDT [...] encounter Progress Notes Julia Buckley PA - 11/03/2008 12:45 PM PDTS: Germaine Heard is a 63 y.o. 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 She tri ed using the tazorac several times, but notes that it made the areas very dry and itchy so s he stopped. She is still washing with Hibiclens daily. She also notes that she recently madrigal s lost about 250 pounds due to a recent gastric bypass surgery. She has had some of her abd ominal skin removed, but notes that her and her plastic surgeon would like to remove more on her lower abdomen and to lift her breast to help with the skin on skin areas where her Keyana er's is the worst. She is wondering if she has the excess skin removed if it will possibly help with her skin disease. Recalls that her nails have been brittle and often break off at the ends but now wears acry lic nails. PMHx: --Gastric bypass in 02/[address] Johnson, used to weigh 450 pounds --s/p abdominoplasty in 06/06 --s/p CABG in 2000 in [facility] --s/p cholecystectomy 35 years ago --s/p appy and tonsillectomy ROS: No further skin complaints. O: Vitals as noted above. Bonner skin type II. Well-developed, well-nourished female in no acute distress. Awake, alert and oriented. Pl easant and cooperative mood. A skin examination was performed including the face, eyelids, lips, neck, chest, abdomen, a nd groin. Findings were within normal limits except for the following: --cannot assess fingernails as acrylic nails are in place --flat topped skin-colored papules on dorsal hands, lateral fingers, and dorsal fingers --multiple small erythematous to violaceous flat topped papules coalesceing into plaques in groin, submammary folds --few scattered red brown macules over abdomin A/P: 1. 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 The lesions of Darier's disease are prone to secondary infection with bacteria, yeast or dermatophytes which excess skin can promote as well. Letter sent to Dr. Blackburn. RETURN VISIT: 1 month Julia Buckley PA-C Department of Dermatology [facility] documented in this encounter Plan of Treatment Not on filedocumented as of this encounter Visit Diagnoses + + | Diagnosis | + + | 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
--- OUTSIDE RECORDS SUMMARY | ~2019-03-03 | XMS | Encounter Summary ---
Demographics + + + | Address | [address] | | | [place] [address] | + + + | Home Phone [...] [place] | | | | | [address] | | + + + + + Care Team Providers + +------+ + | Care Painter Interior Finish Name | Role | Phone | + [...] as of this encounter Discharge Summaries Interface, Mineral Ore Processing Labourer In - 02/20/2006 2:34 AM [facility] [id number] ARETHA RAE [id number] Admission Date: 02/05/2006 Discharge Date: 02/09/2006 Staff [...] of discharge, she was seen by our classification case manager who assisted her with a voucher for a motel. She will stay in the local area for the next 2 days before returning home to [place]. The patient was seen by Nutrition and [...] Sana Timmons M.D. Chey Escobar M.D. / [id number] / [id number] / [id number] / [id number] E: 02/11/2006 cmw cc: Tuan Chan M.D. FAX: [phone] Reviewed or Edited By Sana Timmons on 02-19-2006 Electronically signed by Herberth Brambila 02-19-2006 11:24:08 AM documented i n this encounter Plan of Treatment Not on filedocumented as of this encounter Visit Diagnoses Not on filedocumented in this encounter"
--- OUTSIDE RECORDS SUMMARY | ~2019-03-03 | XMS | Encounter Summary ---
Demographics + + + | Address | [address] | | | [place] [address] | + + + | Home Phone | | + + + | Preferred Language | Unknown | + + + | Marital Status | | + + + | Uatsdin Affiliation | PRO | + + + [...] [place] | | | | | [address] | | + + + + + Care Team Providers + +------+ + | Care University Relations Vice President Name | Role | Phone [...] Prescription | | 2010 | | [address] | [address] | Clarification | | | | Mailcode: CH10U | [place], [place] | | | | | [facility] | [address] | | | | | and Healing, | [phone] | | | | | Building | | | | | | Floor [place], [place] | | | | | | [address] | | | | | | [phone] | | | +--------+ + + + [...]
--- OUTSIDE RECORDS SUMMARY | ~2019-03-03 | XMS | Encounter Summary ---
Demographics + + + | Address | BAD ADDRESS | | | [place] [address] | + + + | Home Phone | | + + + | Preferred Language | Unknown | + + + | Marital Status | | + + + | Nondenominational Affiliation | 1077 | + + + | Race | Unknown | + + + | Ethnic Group | Unknown | + + + Author + + + | Author | [facility] | | | and Byronana | + + + | Organization | [facility] | | | and [...] | | | | | [place] [address] | | + + + + + | Najma Krishnamurthy | ECON | Unknown | | + + + + + | Hector Mack | ECON | [address] | | | | | [place] | | | | | [address] | | + + + + + | Najma Sanches | ECON | Unknown | | + + + + + Care Team Providers + +------+ + | Care Medical Billing Clerk Name | Role | Phone | + +------+ + PCP | Unavailable | + +------+ + Encounter Details +--------+ + + + + | Date | Type | Department | Care Team | Description | +--------+ + + + + | 05/04/ | Hospital | [facility] | | | | 1996 - | Encounter | MED CTR OP REHAB | | | | | | [address] | | | | 08/19/ | | [place] [address] | | | | 1996 | | [phone] | | | +--------+ + + + [...]
--- OUTSIDE RECORDS SUMMARY | ~2019-03-03 | XMS | Encounter Summary ---
Demographics + + + | Address | BAD ADDRESS | | | [place] [address] | + + + | Home Phone | | + + + | Preferred Language | Unknown | + + + | Marital Status | | + + + | Lutheran Affiliation | 1077 | + + + | Race | Unknown | + + + | Ethnic Group | Unknown | + + + Author + + + | Author | [facility] | | | and Byronana | + + + | Organization | [facility] | [...] | | | | | [place] [address] | | + + + + + | Najma Krishnamurthy | ECON | Unknown | | + + + + + | Hector Mack | ECON | [address] | | | | | [place] | | | | | [address] | | + + + + + | Najma Sanches | ECON | Unknown | | + + + + + Care Team Providers + +------+ + | Care Certified Appliance Service Technician Name | Role | Phone | + +------+ + PCP | Unavailable | + +------+ + Encounter Details +--------+ + + + + | Date | Type | Department | Care Team | Description | +--------+ + + + + | 03/03/ | Hospital | [facility] | Colton Long, | | | 2000 | Encounter | MED CTR XRAY [address] | [address] [place] [address] | | | | | [place] | [place] | | | | | [place] [address] | [address] | | | | | [phone] | | | +--------+ + + + [...]
--- OUTSIDE RECORDS SUMMARY | ~2019-03-03 | XMS | Encounter Summary ---
Demographics + + + | Address | BAD ADDRESS | | | [place] [address] | + + + | Home Phone | | + + + | Preferred Language | Unknown | + + + | Marital Status | | + + + | Confucianist Affiliation | 1077 | + + + | Race | Unknown | + + + | Ethnic Group | Unknown | + + + Author + + + | Author | [facility] | | | and [place] | + + + | Organization | [facility] | | | and [...] | | | | | [place] [address] | | + + + + + | Najma Krishnamurthy | ECON | Unknown | | + + + + + | Hector Mack | ECON | [address] | | | | | [place] | | | | | [address] | | + + + + + | Najma Sanches | ECON | Unknown | | + + + + + Care Team Providers + +------+ + | Care Ham Boner Name | Role | Phone | + +------+ + PCP | Unavailable | + +------+ + Encounter Details +--------+ + + + + | Date | Type | Department | Care Team | Description | +--------+ + + + + | 11/10/ | Hospital | [facility] | Oralia Quinonez | | | 2011 | Encounter | HOSPITAL EMERGENCY | MD [address] | | | | | [address] | [place], | | | | | [place], [place] | [place] [address] | | | | | [address] | [phone] | | | | | [phone] | | | +--------+ + + + [...]
--- OUTSIDE RECORDS SUMMARY | ~2019-03-03 | XMS | Encounter Summary ---
Demographics + + + | Address | [address] | | | [place] [address] | + + + | Home Phone [...] [place] | | | | | [address] | | + + + + + Care Team Providers + +------+ + | Care Kiln Transfer Operator Name | Role | Phone | [...] Colon | | | | | at [facility] | [facility] | | | | | [address] | [place] [address] | | | | | [facility] | | | | | | Mailcode: OP12B Isaiah | | | | | | [facility] | | | | | | [place], | | | | | | [place] [address] | | | | | | [phone] | | | +--------+ + + + [...] | | | | | | ([facility]) Obesity | | | | | | [...] + + + | Please click | [facility] DEPT OF | | on view image for the detailed interpretation from [employer] results. | CARDIOLOGY | | | | + + + + + + + + | Performing | Address | City/State/Zipcode | Phone Number | | Organization | | | | + + + + + | [facility]PT [facility] | [address] | [place], [place] | | | CARDIOLOGY | [email or web address] [facility] | [address] | | + + + + + | [facility] | [address] | [place], [place] | | | CARDIOLOGY | [email or web address] [facility] | [address] | | + + + + + documented in this encounter Visit Diagnoses Not on filedocumented in this encounter
--- OUTSIDE RECORDS SUMMARY | ~2019-03-03 | XMS | Encounter Summary ---
Demographics + + + | Address | BAD ADDRESS | | | [place] [address] | + + + | Home Phone [...] + + + | Author | [facility] | | | and [place] | + + + | Organization | [facility] | | | and [...] | | | | | [place] [address] | | + + + + + | Najma Krishnamurthy | ECON | Unknown | | + + + + + | Hector Mack | ECON | [address] | | | | | [place] | | | | | [address] | | + + + + + | Najma Sanches | ECON | Unknown | | + + + + + Care Team Providers + +------+ + | Care Die Cast Operator Name | Role | Phone | + +------+ + | Tuan Chan MD | PCP | | + +------+ + Encounter Details +--------+---------+ + + + | Date | Type | Department | Care Team | Description | +--------+---------+ + + + | 06/10/ | Surgery | [facility] | Leandra Chávez, | CV DIAGNOSTIC | | 2016 | | MED CTR CV INTRA OP | [address] | CARDIAC CATH | | | | [address] | [place] | | | | | [place] | [address] | | | | | [address] | | | | | | [phone] | | | +--------+---------+ + + + [...] angina . She was transferred from [facility] with ongoing chest pain. Today at lunch time she developed chest discomfort. She was preparing lunch at the time. T he discomfort was sharp and stabbing. She was transferred from [facility] on NTG and heparin. The transfer took about 8 hours. The pain has not gone away. She was started on NTG drip a nd heparin. NTG was titrated up. She arrived here on 30 mcg/ min. She still had 4/10 pain . She had no acute ECG changes. She had some dyspnea and diaphoresis no radiation. She was taken to the laborer road due to ongoing chest pain: PROCEDURES PERFORMED: [...] in multiple views using 6 Citizen Of The [place] JL5 and 5 F AL1 and an [...] medication that helps the stomach empty better. 4723-2799 [employer]. [address] [place] [address], [place] [address]. All righ ts reserved. This information is [...] PROVIDER: | | | Tuan Chan MD DRYING ROOM ATTENDANT: Dr. Leandra Chávez MD, | | | [facility], [facility] PRE-PROCEDURE DIAGNOSIS: Unstable Angina | | [...] | | | using 6 Citizen Of The [place] JL5 and 5 F AL1 and an JESUS diagnostic catheters. | | | A 5 yi pigtail catheter was advanced into the left [...] RECOMMENDATIONS Continue medical Rx Leandra Chávez MD, [facility], | | | [facility] DATE/TIME: 06/12/2015 0:27 | | | 06/12/2015 0:27 Portions of this chart were created with [employer] | | | voice recognition software. Occasional [...] [address] | [place] | [phone] | | [facility] | | [address] | | | - LABORATORY | | [...] | | | | ERWIN MORALES MD ([id number]) | | | | | | on [...] + | [facility] | [address] | [place] | [phone] | | [facility] | | [address] | | | - LABORATORY | | [...] + | [facility] | [address] | [place] | [phone] | | [facility] | | [address] | | | - LABORATORY | | [...] | mL/min/1.73m2 | [facility] | | | TURKMEN | RATE,ESTIMATED | | MEDICAL | | | | mL/min/1.71q3Tqkj than | | CENTER - | | [...] [address] | [place] | [phone] | | [facility] | | [address] | | | - LABORATORY | | [...] | [address] | [place] | [phone] | | [facility] | | [address] | | | - LABORATORY | | [...] | | | | | | [employer] | | | | | [...] + | [facility] | [address] | [place] | [phone] | | [facility] | | [address] | | | - LABORATORY | | [...] [address] | [place] | [phone] | | [facility] | | [address] | | | - LABORATORY | | | | + + + + + documented in this encounter Visit Diagnoses Not on filedocumented in this encounter
--- OUTSIDE RECORDS SUMMARY | ~2019-03-03 | XMS | Encounter Summary ---
Demographics + + + | Address | [address] | | | [place] [address] | + + + | Home Phone | | + + + | Preferred Language | Unknown | + + + | Marital Status | | + + + | Hinduism Affiliation | PRO | + + + | Race | White | + + + | Ethnic Group | Not or | + + + Author + + + | Author | [facility] | + + + | Organization | [facility] | + + + | Address | Unknown | + + + | Phone | Unavailable | + + + Support + + + + + | Name | Relationship | Address | Phone | + + + + + | Hector Mack | ECON | [address] | | | | | [place] | | | | | [address] | | + + + + + Care Team Providers + +------+ + | Care Associate Professor Of Geology Name | Role | Phone | + [...] | Eugenio Mailcode: [id number] | [address] [place], | | | | | [place], [place] | [place] [address] | | | | | [address] | [phone] | | | | | [phone] | | | +--------+ + + + [...]
--- OUTSIDE RECORDS SUMMARY | ~2019-03-03 | XMS | Encounter Summary ---
Demographics + + + | Address | [address] | | | [place] [address] | + + + | Home Phone [...] [place] | | | | | [address] | | + + + + + Care Team Providers + +------+ + | Care Joiner Apprentice Name | Role | Phone | + [...] | | | | Mailcode: CH10U | [place], [place] | | | | | [facility] | [address] | | | | | and [place], | [phone] | | | | | [facility] | | | | | | Floor [place], [place] | | | | | | [address] | | | | | | [phone] | | | +--------+---------+ + + + [...] 1 Years of Education: N/A Occupational History [employer] Social History Main Topics Tobacco Use: Quit [...] [facility] | [address] | [place], [place] | | | [facility] POINT OF CARE | [address] | [address] | | | TESTS | | | | + + + + + | [facility] CARE | [address] | [place], [place] | | | TESTS | [address] | [address] | | + + + + + documented in this encounter Visit Diagnoses + + | Diagnosis | + + | Urolithiasis - Primary Urinary calculus, unspecified | + + documented in this encounter"
--- OUTSIDE RECORDS SUMMARY | ~2019-03-03 | XMS | Encounter Summary ---
Demographics + + + | Address | BAD ADDRESS | | | [place] [address] | + + + | Home Phone | | + + + | Preferred Language | Unknown | + + + | Marital Status | | + + + | Pentecostalism Affiliation | 1077 | + + + | Race | Unknown | + + + | Ethnic Group | Unknown | + + + Author + + + | Author | [facility] | | | and Byronana | + + + | Organization | [facility] | | | and [...] | | | | | [place] [address] | | + + + + + | Najma Krishnamurthy | ECON | Unknown | | + + + + + | Hector Mack | ECON | [address] | | | | | [place] | | | | | [address] | | + + + + + | Najma Sanches | ECON | Unknown | | + + + + + Care Team Providers + +------+ + | Care Custodial Services Manager Name | Role | Phone | + +------+ + PCP | Unavailable | + +------+ + Encounter Details +--------+ + + + + | Date | Type | Department | Care Team | Description | +--------+ + + + + | 07/03/ | Hospital | [facility] | | | | 1999 | Encounter | MED CTR EMERGENCY | | | | | | CENTER [address] | | | | | | [place] | | | | | | [address] | | | | | | [phone] | | | +--------+ + + + [...]
--- OUTSIDE RECORDS SUMMARY | ~2019-03-03 | XMS | Encounter Summary ---
Demographics + + + | Address | [address] | | | [place] [address] | + + + | Home Phone [...] [place] | | | | | [address] | | + + + + + Care Team Providers + +------+ + | Care Medication Nurse Name | Role | Phone | + [...] [address] | | | | | | [place], [place] | | | | | | [address] | | | | | | [phone] | | | +--------+------+ + + + [...] + + documented in this encounter Results [facility] - BASIC METABOLIC SET (03/11/2011 [...] + + + | Test performed by: [facility] | [facility] | | Outpatient Lab CH[address], [place] [address] | DEPARTMENT OF | | | PATHOLOGY | + + + + + + + + | Performing | Address | City/State/Zipcode | Phone Number | | Organization | | | | + + + + + | [facility] | [address] | [place] [address] | | | PATHOLOGY | [address] [...] cmnt | 150 - 420 K/cu | MSSU | | | COUNT, | | mm [...] + + + | Test performed by: [facility] | [place] | | Outpatient Lab [facility] [address], [place] [address] | DEPARTMENT OF | | Sent to Core Lab. | PATHOLOGY | + + + + + + + + | Performing | Address | City/State/Zipcode | Phone Number | | Organization | | | | + + + + + | [facility] | [address] | [place] [address] | | | PATHOLOGY | [address] | | | + + + + + documented in this encounter Visit Diagnoses + + | Diagnosis | + + | Kidney stone Calculus of kidney | + + documented in this encounter"
--- OUTSIDE RECORDS SUMMARY | ~2019-03-03 | XMS | Encounter Summary ---
Demographics + + + | Address | BAD ADDRESS | | | [place] [address] | + + + | Home Phone [...] Author | [facility] | | | and Byronana | + + + | Organization | [facility] [...] | | | | | [place] [address] | | + + + + + | Najma Krishnamurthy | ECON | Unknown | | + + + + + | Hector Mack | ECON | [address] | | | | | [place] | | | | | [address] | | + + + + + | Najma Sanches | ECON | Unknown | | + + + + + Care Team Providers + +------+ + | Care Dough Brake Machine Operator Name | Role | Phone [...] | 2018 | | HOSPITAL DERMATOLOGY | HORSE RACING MANAGER [address] | | | | | CLINIC [address] | [place], | | | | | [address] [place], | [place] [address] | | | | | [place] [address] | [phone] | | | | | [phone] | | | +--------+ + + + [...]
--- OUTSIDE RECORDS SUMMARY | ~2019-03-03 | XMS | Encounter Summary ---
Demographics + + + | Address | [address] | | | [place] [address] | + + + | Home Phone [...] [place] | | | | | [address] | | + + + + + Care Team Providers + +------+ + | Care Assembler Sandal Parts Name | Role | Phone | + [...] | Eugenio Mailcode: [id number] | [address] [place], | | | | | [place], [place] | [place] [address] | | | | | [address] | [phone] | | | | | [phone] | | | +--------+ + + + [...]
--- OUTSIDE RECORDS SUMMARY | ~2019-03-03 | XMS | Encounter Summary ---
Demographics + + + | Address | [address] | | | [place] [address] | + + + | Home Phone [...] [place] | | | | | [address] | | + + + + + Care Team Providers + +------+ + | Care Associate School Psychologist Name | Role | Phone | + [...] Colon | | | | | at [facility] | [facility] | | | | | [address] | [place] [address] | | | | | [facility] | | | | | | Mailcode: OP12B Isaiah | | | | | | [facility] | | | | | | [place], | | | | | | [place] [address] | | | | | | [phone] | | | +--------+ + + + [...] uncontrolled(250.72) | | | | | | ([facility]) Obesity | | | | | [...] + + + | Please click | [facility] | | on view image for the detailed interpretation from [employer] results. | CARDIOLOGY | | | | + + + + + + + + | Performing | Address | City/State/Zipcode | Phone Number | | Organization | | | | + + + + + | [facility] | [address] | [place], [place] | | | CARDIOLOGY | [employer] | [address] | | + + + + + | [facility] | [address] | [place], [place] | | | CARDIOLOGY | [employer] [facility] | [address] | | + + + + + documented in this encounter Visit Diagnoses Not on filedocumented in this encounter
--- OUTSIDE RECORDS SUMMARY | ~2019-03-03 | XMS | Encounter Summary ---
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
--- OUTSIDE RECORDS SUMMARY | ~2019-03-03 | XMS | Encounter Summary ---
Demographics + + + | Address | [address] | | | [place] [address] | + + + | Home Phone [...] + + + | Author | [facility] | + + + | Organization | [facility] | + + + | Address | Unknown | + + + | Phone | Unavailable | + + + Support + + + + + | Name | Relationship | Address | Phone | + + + + + | Hector Mack | ECON | [address] | | | | | [place] | | | | | [address] | | + + + + + Care Team Providers + +------+ + | Care Public Affairs Manager Name | Role | Phone | [...] [address] | | | | | | [place], [place] | | | | | | [address] | | | +--------+ + + + [...]
--- OUTSIDE RECORDS SUMMARY | ~2019-03-03 | XMS | Encounter Summary ---
Demographics + + + | Address | BAD ADDRESS | | | [place] [address] | + + + | Home Phone | | + + + | Preferred Language | Unknown | + + + | Marital Status | | + + + | Mandaen Affiliation | 1077 | + + + | Race | Unknown | + + + | Ethnic Group | Unknown | + + + Author + + + | Author | [facility] | | | and Byronana | + + + | Organization | [facility] | | | and [place] | + + + | Address | Unknown | + + + | Phone | Unavailable | + + + Support + + + + + | Name | Relationship | Address | Phone | + + + + + | Hector Mack | ECON | [address] | | | | | [place] [address] | | + + + + + | Najma Krishnamurthy | ECON | Unknown | | + + + + + | Hector Mack | ECON | [address] | | | | | [place] | | | | | [address] | | + + + + + | Najma Sanches | ECON | Unknown | | + + + + + Care Team Providers + +------+ + | Care Eyeglass Frame Truer Name | Role | Phone | + +------+ + PCP | Unavailable | + +------+ + Encounter Details +--------+ + + + + | Date | Type | Department | Care Team | Description | +--------+ + + + + | 04/27/ | Hospital | [facility] | Trevor Hunter | | | 2000 - | Encounter | HEART MED CTR | A Jesus Bartholomew | | | | | CARDIAC TELEMETRY | [address] | | | 05/15/ | | [address] | [address] [place], [place] | | | 2000 | | [place], [place] | [id number] | | | | | [address] | | | | | | [phone] | | | +--------+ + + + [...]
--- OUTSIDE RECORDS SUMMARY | ~2019-03-03 | XMS | Encounter Summary ---
Demographics + + + | Address | [address] | | | [place] [address] | + + + | Home Phone [...] [place] | | | | | [address] | | + + + + + Care Team Providers + +------+ + | Care Drying Tunnel Operator Name | Role | Phone | + +------+ + | uTan Chan MD | PCP | | + [...] | | Transcribed | | [address] [place], | | | | | | [place] [address] | | | | | | [phone] | | | | | | | [...] Pedraza MD - 06/18/2007 12:00 AM PDT [id number] | | [id number] ARETHA RAE [id number] | | [id number] Date: 06/18/2007 Attending Surgeon: Noe Hdez M.D. | | Program Manager Rn(s): Bryan Pedraza M.D. Preoperative Diagnosis(es): Right | | urolithiasis. Postoperative Diagnosis(es): Right urolithiasis. Procedures | | Performed: 1. Rigid cystourethroscopy. 2. Right retrograde pyelogram. 3. Right flexible | | nephroureteroscopy with holmium laser lithotripsy. 4. Right ureteral stent placement | | (6-Greek x 24 cm). 5. Fluoroscopy with interpretation. [...] case. After | | surgical pause, a 21-Greek rigid cystoscope was inserted into the bladder [...] both proximally and distally. An | | 18-Greek Mirza catheter was then placed and filled [...] | | Chey Pedraza M.D. D / [id number] / [id number] / [id number] / | | [id number] Reviewed or Edited By Bryan Pedraza | [...] | | | After surgical pause, a 21-Greek rigid cystoscope was inserted into the | [...] both proximally and distally. An | | 18-Greek | | Mirza catheter was then placed [...] | | BDD / HS | | [id number] / [id number] / [id number] / [id number] | | | | | | | [...]
--- OUTSIDE RECORDS SUMMARY | ~2019-03-03 | XMS | Encounter Summary ---
Demographics + + + | Address | BAD ADDRESS | | | [place] [address] | + + + | Home Phone | | + + + | Preferred Language | Unknown | + + + | Marital Status | | + + + | Sikh Affiliation | 1077 | + + + | Race | Unknown | + + + | Ethnic Group | Unknown | + + + Author + + + | Author | [facility] | | | and Byronana | + + + | Organization | [facility] | | | and [...] | | | | | [place] [address] | | + + + + + | Najma Krishnamurthy | ECON | Unknown | | + + + + + | Hector Mack | ECON | [address] | | | | | [place] | | | | | [address] | | + + + + + | Najma Sanches | ECON | Unknown | | + + + + + Care Team Providers + +------+ + | Care Housekeeping Supervisor Hotel Name | Role | Phone | + +------+ + PCP | Unavailable | + +------+ + Encounter Details +--------+ + + + + | Date | Type | Department | Care Team | Description | +--------+ + + + + | 07/10/ | Hospital | [facility] | | | | 1996 | Encounter | MED CTR EMERGENCY | | | | | | CENTER [address] | | | | | | [place] | | | | | | [address] | | | | | | [phone] | | | +--------+ + + + [...]
--- OUTSIDE RECORDS SUMMARY | ~2019-03-03 | XMS | Encounter Summary ---
Demographics + + + | Address | [address] | | | [place] [address] | + + + | Home Phone [...] [place] | | | | | [address] | | + + + + + Care Team Providers + +------+ + | Care Vp Account Director Name | Role | Phone [...] | Only | [address] | [address] | | | | | Mailcode: CH10U | [place], [place] | | | | | [facility] | [address] | | | | | and Healing, | [phone] | | | | | | | | | | | Floor [place], [place] | | | | | | [address] | | | | | | [phone] | | | +--------+ + + + [...]
--- OUTSIDE RECORDS SUMMARY | ~2019-03-03 | XMS | Encounter Summary ---
Demographics + + + | Address | BAD ADDRESS | | | [place] [address] | + + + | Home Phone [...] + + | Author | [facility] | | | and Byronana | + + + | Organization | [facility] | | [...] | | | | | [place] [address] | | + + + + + | Najma Krishnamurthy | ECON | Unknown | | + + + + + | Hector Mack | ECON | [address] | | | | | [place] | | | | | [address] | | + + + + + | Najma Sanches | ECON | Unknown | | + + + + + Care Team Providers + +------+ + | Care Solution Make Up Operator Name | Role | Phone | + +------+ + PCP | Unavailable | + +------+ + Encounter Details +--------+ + + + + | Date | Type | Department | Care Team | Description | +--------+ + + + + | 03/01/ | Hospital | [facility] | | | | 1995 - | Encounter | MED CTR GENERIC OP | | | | | | CONV DEPT [address] | | | | 08/02/ | | [place], | | | | 1996 | | [place] [address] | | | | | | [phone] | | | +--------+ + + + [...]
--- OUTSIDE RECORDS SUMMARY | ~2019-03-03 | XMS | Encounter Summary ---
Demographics + + + | Address | [address] | | | [place] [address] | + + + | Home Phone [...] [place] | | | | | [address] | | + + + + + Care Team Providers + +------+ + | Care Electric Blanket Wirer Name | Role | Phone | + [...] [facility] | | | | | | [facility] | | | | | | and Healing, | | | | | | Building [address] | | | | | | Floor [place], [place] | | | | | | [address] | | | | | | [phone] | | | +--------+---------+ + + + [...] The next will be in [facility] time. documented in this encounter Plan of Treatment Not on filedocumented as of this encounter Visit Diagnoses + + | Diagnosis | + + | Achalasia Achalasia and cardiospasm | + + | Obesity Obesity, unspecified | + + documented in this encounter
--- OUTSIDE RECORDS SUMMARY | ~2019-03-03 | XMS | Encounter Summary ---
Demographics + + + | Address | [address] | | | [place] [address] | + + + | Home Phone [...] [place] | | | | | [address] | | + + + + + Care Team Providers + +------+ + | Care Attendant [facility] Name | Role | Phone | + [...] Registratio | PARM[facility]ER Hernandez | [address] | | | | n | Eugenio Mailcode: [id number] | [address] [place], | | | | | [place], [place] | [place] [address] | | | | | [address] | [phone] | | | | | [phone] | | | +--------+ + + + [...]
--- OUTSIDE RECORDS SUMMARY | ~2019-03-03 | XMS | Encounter Summary ---
Demographics + + + | Address | BAD ADDRESS | | | [place] [address] | + + + | Home Phone [...] Author | [facility] | | | and [place]ana | + + + | Organization | [facility] [...] | | | | | [place] [address] | | + + + + + | Najma Krishnamurthy | ECON | Unknown | | + + + + + | Hector Mack | ECON | [address] | | | | | [place] | | | | | [address] | | + + + + + | Najma Sanches | ECON | Unknown | | + + + + + Care Team Providers + +------+ + | Care Assistant Spa Manager Name | Role | Phone | + +------+ + PCP | Unavailable | + +------+ + Encounter Details +--------+ + + + + | Date | Type | Department | Care Team | Description | +--------+ + + + + | 01/06/ | Hospital | [facility] | | | | 1991 | Encounter | MED CTR XRAY [address] | | | | | | [place] [address] | | | | | | [place] [address] | | | | | | [phone] | | | +--------+ + + + [...]
--- OUTSIDE RECORDS SUMMARY | ~2019-03-03 | XMS | Encounter Summary ---
Demographics + + + | Address | BAD ADDRESS | | | [place] [address] | + + + | Home Phone | | + + + | Preferred Language | Unknown | + + + | Marital Status | | + + + | Latter-Day Affiliation | 1077 | + + + | Race | Unknown | + + + | Ethnic Group | Unknown | + + + Author + + + | Author | [facility] | | | and Byronana | + + + | Organization | [facility] | | [...] | | | | | [place] [address] | | + + + + + | Najma Krishnamurthy | ECON | Unknown | | + + + + + | Hector Mack | ECON | [address] | | | | | [place] | | | | | [address] | | + + + + + | Najma Sanches | ECON | Unknown | | + + + + + Care Team Providers + +------+ + | Care Software Systems Analyst Name | Role | Phone | + +------+ + | Tuan Chan MD | PCP | | + +------+ + Reason for Visit + + + | Reason | Comments | + + + | Abdominal Pain | | + + + Encounter Details +--------+ + + + + | Date | Type | Department | Care Team | Description | +--------+ + + + + | 10/09/ | Emergency | [facility] | Kiana Nguyen | Feared condition not | | 2018 | | [facility] | C, [facility] [address] | demonstrated | | | | CENTER [address] | [address] [place] | (Primary Dx) | | | | [place] | [address] | | | | | [address] | | | | | | [phone] | | | +--------+ + + + [...] + + + | Blood Pressure | - | - | | + + + + + | Pulse | 70 | 10/09/2017 6:51 PM | | | | | PDT | | + + + + + | Temperature | 36.5 C (97.7 F) | 10/09/2017 6:51 PM | | | | | PDT | | + + + + + | Respiratory Rate | 18 | 10/09/2017 6:51 PM | | | | | PDT | | + + + + + | Oxygen Saturation | 97% | 10/09/2017 6:51 PM | | | | | PDT | | + + + + + | Inhaled Oxygen | - | - | | | Concentration | | | | + + + + + | Weight | 73.5 kg (162 lb) | 10/09/2017 6:51 PM | | | | | PDT | | + + + + + | Height | 162.6 cm (5' 4") | 10/09/2017 6:51 PM | | | | | PDT | | + + + + + | Body Mass Index | 27.81 | 10/09/2017 6:51 PM | | | | | PDT [...] as of this encounter Discharge Instructions Instructions Kiana Nguyen ARNP - 10/09/2017-Return or go to the ER for new or worse symptoms including new or worsening pain, fevers, or persisitent vomiting. -Recheck tomorrow if not lots better and in 2-3days if not completely better. Make sure to call community health worker to make sure you get placement and another home a s soon as possible. documented in this encounter Medications at Time [...] | | 0 | | | | (K-DUR,KLOR-CON) 10 | Daily. | | | | [...] INFORMATION | GIOVANI | Routin | | 10/09/2017 6:41 PM | | EXCHANGE | | e | | PDT | + +------+--------+ + + documented as of this encounter Procedures + +--------+ + + + | Procedure Name | Priori | Date/Time | Associated Diagnosis | Comments | | | ty | | | | + +--------+ + + + | WET SHEYLA MCLAUGHLIN | STAT | 10/09/2017 | | Results for this | | | | 8:45 PM | | procedure are in the | | | | PDT | | results section. | + +--------+ + + + | URINALYSIS WITH | STAT | 10/09/2017 | | Results for this | | MICROSCOPIC WITH | | 7:50 PM | | procedure are in the | | CULTURE IF INDICATED | | PDT | | results section. | + +--------+ + + + | CBC WITH | STAT | 10/09/2017 | | Results for this | | DIFFERENTIAL | | 7:36 PM | | procedure are in the | | | | PDT | | results section. | + +--------+ + + + | LACTIC ACID | STAT | 10/09/2017 | | Results for this | | | | 7:36 PM | | procedure are in the | | | | PDT | | results section. | + +--------+ + + + | COMPREHENSIVE | STAT | 10/09/2017 | | Results for this | | METABOLIC PANEL | | 7:36 PM | | procedure are in the | | | | PDT | | results section. | + +--------+ + + + | ED INFORMATION | Routin | 10/09/2017 | | | | EXCHANGE | e | 6:41 PM | | | | | | PDT | | | + +--------+ + + + +---+--------+ | | | | | Proced | | | ure | | | Note - | | | Samuel, | | | Lab In | | | | | | Hlseve | | | n - | | | | | | 2017 | | | 6:42 | | | PM PDT | | | | | | [...] | | | 8 | | | 18:40? | | | [place] | | | BARNET | | | T, | | | GERMAINE | | | D?MRN: | | | | | | [id number] | | | [id number] | | | ecurit | | | [...] | | | St. | | | [place] | | | y | | | [...] | | | [phone] | | | [phone] | | | .These | | | [...] | | | int | | | Jose | | | [...] | | | Pain | | | Elise[place] | | | 23, | | | 2018 | | | [facility] | | | [facility] | | | y H. | | [...] | | | St. | | | [place] | | | y H. | | [...] | | | St. | | | [place] | | | y H. | | [...] | | | St. | | | [place] | | | y H. | | [...] Visits | | | | | | [facility] | | | al 1 | | | [facility] [place] [facility] | [facility] | | | Hospit | | | al 6 | | | Total | | | [...] | | 2 120 | | | 2018 | | | 4-30 | | | OXYCOD | | | ONE-AC | | | ETAMIN | | | OPHEN | | | 10-325 | | | 145 | | | TUAN | | | CONKLI | | | N, MD | | | 2 0 | | | 2018 | | | 4-02 | | | [place] | | | NE | | | SULF | | | ER 60 | | | MG | | | TABLET | | | 56 | | | TUAN | | | CONKLI | | | N, MD | | | 0 | | | 2018 | | | 4-02 | | | [place] | | | NE | | | SULF | | | ER 30 | | | MG | | | TABLET | | | 56 | | | TUAN | | | CONKLI | | | N, MD | | | 0 | | | 2018-0 | | | 3-28 | | | OXYCOD | | | ONE-AC | | | ETAMIN | | | OPHEN | | | 10-325 | | | 145 | | | TUAN | | | CONKLI | | | N, MD | | | 2 0 | | | [address] | | | 3-05 | | | [place] | | | NE | | | SULF | | | ER 30 | | | MG | | | TABLET | | | 56 | | | TUAN | | | CONKLI | | | N, MD | | | 0 | | | 2018-0 | | | 3-05 | | | [place] | | | NE | | | SULF | | | ER 60 | | | MG | | | TABLET | | | 56 | | | TUAN | | | CONKLI | | | N, MD | | | 0 | | | 2018-0 | | | 3-05 | | | OXYCOD | | | ONE-AC | | | ETAMIN | | | OPHEN | | | 10-325 | | | 145 | | | TUAN | | | CONKLI | | | N, MD | | | 2 0 | | | 2018-0 | | | 2-05 | | | [place] | | | NE | | | SULF | | | ER 60 | | | MG | | | TABLET | | | 56 | | | TUAN | | | CONKLI | | | N, MD | | | 0 | | | 2018-0 | | | 2-05 | | | [place] | | | NE | | | SULF | | | ER 30 | | | MG | | | TABLET | | | 56 | | | TUAN | | | CONKLI | | | N, MD | | | 0 | | | 2018-0 | | | 2-05 | | | OXYCOD | | | [...] | | II-V | | | Rx 25 | | | CS-II | | | Rx 25 | | | Quanti | | | ty | | | Dispen | | | sed | | | 3,358 | | | Unique | | | | | | Prescr | | | ibers | | | 2 | | | Unique | | | | | | Pharma | | | cies 1 | | | | | | Benzos | | | 0 | | | Opioid | | | s 31 | | | Long | | | Acting | | | | | | Opioid | | | s 22 | | | The | | | [...] | | | ? | | | 2018 | | | Collec | | | [...] | | +---+--------+ documented in this encounter Results Wet Mount, Genital (10/09/2017 8:45 PM PDT) + + + + + + | Component | Value | Ref Range | Performed | Pathologist | | | | | At | Signature | + + + + + + | Clue Cells | None seen | None seen | [facility] | | + + + + + + | Yeast | None seen | None seen | [facility] | | + + + + + + | Trichomonas | None seen | None seen | [facility] | | + + + + + + + + | Specimen | + + | Tissue - Female | | genital tract | | structure (body | | structure) | + + + + + + + | Performing | Address | City/State/Zipcode | Phone Number | | Organization | | | | + + + + + | [facility] | [address] | [place] [address] | [phone] | | H[facility] | | | | + + + + + Urinalysis with Microscopic with Culture if Indicated (10/09/2017 7:50 PM PDT) + + + + + + | Component | Value | Ref Range | Performed | Pathologist | | | | | At | Signature | + + + + + + | Color | Yellow | Pale Yellow, | [facility] | | | | | Yellow | [facility] | | | | | | [facility] | | + + + + + + | Clarity | Slightly Cloudy (A) | Clear | [facility] | [facility] | [facility] | | [facility] | | + + + + + + | pH, Urine | 5.0 | 5.0 - 7.0 | [facility] | | | | | | [facility] | | + + + + + + | Specific | 1.020 | 1.003 - 1.030 | [facility] | | | [place] | | | [facility] | | | | | | [facility] | | + + + + + + | Protein, | Negative | Negative | [facility] | | | Urine | | | [facility] | | | | | | [facility] | | + + + + + + | Blood, | Negative | Negative | [facility] | | | Urine | | | [facility] | | | | | | [facility] | | + + + + + + | Glucose, | Normal | Normal | [facility] | | | Urine | | | [facility] | | | | | | [facility] | | + + + + + + | Ketones, | Negative | Negative | [facility] | | | Urine | | | [facility] | | | | | | [facility] | | + + + + + + | Bilirubin, | Negative | Negative | [facility] | | | Urine | | | [facility] | | | | | | [facility] | | + + + + + + | Nitrite, | Negative | Negative | [facility] | | | Urine | | | [facility] | | | | | | [facility] | | + + + + + + | Leukocyte | 25 abdirahman/uL (A) | Negative | [facility] | | | Esterase, | | | [facility] | | | Urine | | | [facility] | | | | | | LAB[facility] | | + + + + + + | Urobilinoge | Normal | 0-1.0 mg/dL | [facility] | | | n, Urine | | | [facility] | | | | | | [facility] | | + + + + + + | WBC UA | 0-2 | <=5 /HPF | [facility] | | | | [facility] | | | | | | [facility] | | + + + + + + | RBC UA | None Seen | <=5 /HPF | [facility] | | | | | | [facility] | | + + + + + + | SQUAMOUS | Moderate (A) | None Seen /LPF | [facility] | | | EPITHELIAL | | | [facility] | | | UA | | | [facility] | | | | | | [facility] | | + + + + + + | BACTERIA UA | Moderate (A) | None Seen /HPF | [facility] | | | | [facility] | | | | | | [facility] | | + + + + + + | URINE | Urine Culture Not | | [facility] | | | COMMENT | Indicated | | [facility] | | | | | | [facility] | | + + + + + + + + | Specimen | + + | Urine - Urine | | specimen obtained by | | clean catch | | procedure (specimen) | + + + + + + + | Performing | Address | City/State/Zipcode | Phone Number | | Organization | | | | + + + + + | [facility] | [address] | [place] [address] | [phone] | | [facility] | | | | + + + + + Lactic Acid (10/09/2017 7:36 PM PDT) + +-------+ + + + | Component | Value | Ref Range | Performed | Pathologist | | | | | At | Signature | + +-------+ + + + | Lactate | 1.4 | 0.4 - 2.1 | [facility] | | | | | mmol/L | [facility] | | | | | | [facility] | | + +-------+ + + + + + | Specimen | + + | Blood | + + + + + + + | Performing | Address | City/State/Zipcode | Phone Number | | Organization | | | | + + + + + | [facility] | [address] | [place] [address] | [phone] | | [facility] | | | | + + + + + Comprehensive Metabolic Panel (10/09/2017 7:36 PM PDT) + + + + + + | Component | Value | Ref Range | Performed | Pathologist | | | | | At | Signature | + + + + + + | Na | 134 | 132 - 143 | [facility] | | | | | mmol/L | [facility] | | [facility] | | | [facility] | | + + + + + + | K | 4.7 | 3.3 - 4.9 | [facility] | | | | | mmol/L | [facility] | | [facility] | | | [facility] | | + + + + + + | Cl | 101 | 95 - 108 mmol/L | [facility] | | | | | | [facility] | | + + + + + + | CO2 | 26 | 23 - 34 mmol/L | [facility] | | | | | | [facility] | | + + + + + + | Anion Gap | 7 | 7 - 16 mmol/L | [facility] | | | | | | [facility] | | + + + + + + | Glucose | 128 (H) | 70 - 110 mg/dL | [facility] | [facility] | [facility] | | | | | | [facility] | | + + + + + + | BUN | 18 | 5 - 26 mg/dL | [facility] | | | | | | [facility] | | + + + + + + | Creatinine | 0.91 | 0.60 - 1.30 | [facility] | | | | | mg/dL | [facility] | [facility] | | | | | | [facility] | | + + + + + + | eGFR if not | >60Comment: GLOMERULAR | >=60 | [facility] | | | | FILTRATION | mL/min/1.73m2 | [facility] | | | [facility]ALEST[facility] | RATE,ESTIMATED | | [facility] | | | | mL/min/1.81m5Rpob than | | LABORATORY | | | [...] + + + + | Calcium | 7.6 (L) | 8.3 - 10.0 | [facility] | | | | | mg/dL | [facility] | | | | | | [facility] | | + + + + + + | Albumin | 3.2 | 3.0 - 4.5 g/dL | [facility] | | | | | [facility] | | | | | | [facility] | | + + + + + + | Bilirubin | 0.2 | 0.0 - 1.2 mg/dL | [facility] | | | Total | | | [facility] | | | | | | [facility] | | + + + + + + | Total | 6.5 (L) | 6.6 - 8.5 g/dL | [facility] | | | Protein | | | [facility] | | | | | | [facility] | | + + + + + + | AST | 22 | 0 - 38 U/L | [facility] | | | | [facility] | | | | | | [facility] | | + + + + + + | ALT | 15 | 14 - 59 U/L | [facility] | | | | [facility] | | | | | | [facility] | | + + + + + + | Alkaline | 85 | 46 - 116 U/L | [facility] | | | Phosphatase | | | [facility] | | | | | | [facility] | | + + + + + + | Globulin | 3.3 | g/dL | [facility] | | | | | [facility] | | | | | | [facility] | | + + + + + + | Albumin/Shirin | 1.0 | | [facility] | | | bulin Ratio | | | [facility] | | | | | | [facility] | | + + + + + + | BUN/Creatin | 19.8 | 7.0 - 24.0 | [facility] | | | ine Ratio | | | [facility] | | | [facility] | | [facility] | | + + + + + + + + | Specimen | + + | Blood | + + + + + + + | Performing | Address | City/State/Zipcode | Phone Number | | Organization | | | | + + + + + | [facility] | [address] | [place] [address] | [phone] | | [facility] | | | | + + + + + CBC with Differential (10/09/2017 7:36 PM PDT) + + + + + + | Component | Value | Ref Range | Performed | Pathologist | | | | | At | Signature | + + + + + + | WBC | 7.2 | 4.3 - 10.4 K/uL | [facility] | | | | [facility] | | | | | | [facility] | | + + + + + + | RBC | 3.70 (L) | 4.12 - 5.30 | [facility] | | | | | M/uL | [facility] | | | | | | [facility] | | + + + + + + | Hemoglobin | 10.5 (L) | 12.4 - 15.7 | [facility] | | | | | g/dL | [facility] | | | | | | [facility] | | + + + + + + | Hct | 33.0 (L) | 37.7 - 47.0 % | [facility] | | | | | [facility] | | | | | | [facility] | | + + + + + + | MCV | 89.2 | 82.0 - 97.0 fL | [facility] | | | | [facility] | | | | | | [facility] | | + + + + + + | MCH | 28.4 | 27.1 - 32.3 pg | [facility] | | | | | [facility] | | | | | | [facility] | | + + + + + + | MCHC | 31.8 (L) | 32.0 - 36.9 | [facility] | | | | | g/dL | [facility] | | | | | | [facility] | | + + + + + + | RDW-CV | 15.2 | 0.0 - 17.0 % | [facility] | | | | | [facility] | | | | | | [facility] | | + + + + + + | Platelet | 218 | 150 - 450 K/uL | [facility] | | | Count | | | [facility] | | | | | | [facility] | | + + + + + + | MPV | 10.5 | 9.4 - 12.3 fL | [facility] | | | | | [facility] | | | | | | [facility] | | + + + + + + | % | 72.6 | 42.0 - 76.0 % | [facility] | | | Neutrophils | | | [facility] | | | | | | [facility] | | + + + + + + | % | 21.2 | 20.0 - 40.0 % | [facility] | | | Lymphocytes | | | [facility] | | | | | | [facility] | | + + + + + + | % Monocytes | 5.0 | 3.0 - 13.0 % | [facility] | | | | | [facility] | | | | | | [facility] | | + + + + + + | % | 0.4 | 0.0 - 7.0 % | [facility] | | | Eosinophils | | | [facility] | | | | | | [facility] | | + + + + + + | % Basophils | 0.7 | 0.0 - 2.0 % | [facility] | | | | | [facility] | | | | | | [facility] | | + + + + + + | % Immature | 0.1 | 0.0 - 0.5 % | [facility] | | | Granulocyte | | | [facility] | | | s | | | [facility] | | | | | | LAB[facility]ATORY | | + + + + + + | Absolute | 5.25 | 2.50 - 8.50 | [facility] | | | Neutrophils | | K/uL | [facility] | | | | | | [facility] | | + + + + + + | Absolute | 1.53 | 1.00 - 3.80 | [facility] | | | Lymphocytes | | K/uL | [facility] | | | | | | [facility] | | + + + + + + | Absolute | 0.36 | 0.00 - 0.80 | [facility] | | | Monocytes | | K/uL | [facility] | | | | | | [facility] | | + + + + + + | Absolute | 0.03 | 0.00 - 0.70 | [facility] | | | Eosinophils | | K/uL | [facility] | | | | | | [facility] | | + + + + + + | Absolute | 0.05 | 0.00 - 0.20 | [facility] | | | Basophils | | K/uL | [facility] | | | | | | [facility] | | + + + + + + | Absolute | 0.01 | 0.00 - 0.15 | [facility] | | | Immature | | K/UL | [facility] | | | Granulocyte | | | HOSPITAL | | | s | | | LABORATORY | | + + + + + + | % nRBC | 0 | 0 - 0 per 100 | [facility] | | | | | WBC's | [facility] | | | | | | [facility] | | + + + + + + | Absolute | 0.00 | 0.00 - 0.01 | [facility] | | | nRBC | | K/UL | [facility] | | | | | | [facility] | | + + + + + + + + | Specimen | + + | Blood | + + + + + + + | Performing | Address | City/State/Zipcode | Phone Number | | Organization | | | | + + + + + | [facility] | [address] | [place] [address] | [phone] | | H[facility] | | | | + + + + + documented in this encounter Visit Diagnoses + + | Diagnosis | + + | Feared condition not demonstrated - Primary Person with feared complaint in whom no | | diagnosis was made | + + documented in this encounter
--- OUTSIDE RECORDS SUMMARY | ~2019-03-03 | XMS | Encounter Summary ---
Demographics + + + | Address | [address] | | | [place] [address] | + + + | Home Phone [...] + + | Author | [facility] | + + + | Organization | [facility] | + + + | Address | Unknown | + + + | Phone | Unavailable | + + + Support + + + + + | Name | Relationship | Address | Phone | + + + + + | Hector Mack | ECON | [address] | | | | | [place] | | | | | [address] | | + + + + + Care Team Providers + +------+ + | Care Transportation Attendant Name | Role | Phone | + +------+ + | Tuan hCan MD | PCP | | + +------+ [...] + + | 03/12/ | Hospital | [facility] [address] | Renato Chow MD | | | 2010 - | Encounter | [address] | [address] | | | | | [facility] | [place], [place] | | | 03/13/ | | [place], [place] | [address] | | | 2010 | | [address] | [phone] | | | | | [phone] | | | +--------+ + + + [...] re removal. Feel free to call the [facility] urology clinic as needed for any additional questions . Your Follow-Up Plan Follow-up information has not been specified. Other Discharge Orders and Instructions Please contact Urology clinic ([phone]) during business hours or the Urology resident correspondence school teacher ([phone]) after business hours for: 1. Redness or [...] Instructions: Please see discharge summary. Discharge Nurse: lEbert Cornelius Date: 03/13/2011 Discharge Time: 8:24 AM [...] Physician: Renato Chow MD Patient: GERMAINE HEARD [id number] 24H events/Subjective: No events overnight. Pain well [...] 03/13/11 0659 03/13/11699 - 03/14/11 0659 Shift 0992-0972 9753-8196 3289-3812 Daily Total 2897-2982 4085-4817 2500-1582 Daily Total I N T A K E [address] 1080 1600 I.V. 1550 094 613 4930 5 5 Shift Total 1550 1320 1880 4750 5 5 O U T P U T Urine 800 439 392 4918 200 200 Shift Total 800 302 472 7958 200 200 Medication: acetaminophen (aka TYLENOL) tablet [...] DEPARTMENT OF | [address] | [place] [address] | | | PATHOLOGY | [address] [...] [facility] | [address] | [place] [address] | | | PATHOLOGY | [address] [...] | | | | | | [address] [facility], | | | | | | [place] [address] | | | | | | [phone] | | | | | | | | | | | | [email or web address], | | | | | | Alma [...] [facility] | [address] | [place], [place] | | | [facility] | | [address] | | + + + + + [...]
--- OUTSIDE RECORDS SUMMARY | ~2019-03-03 | XMS | Encounter Summary ---
Demographics + + + | Address | BAD ADDRESS | | | [place] [address] | + + + | Home Phone [...] Author | [facility] | | | and Byronana | + + + | Organization | [facility] [...] | | | | | [place] [address] | | + + + + + | Najma Krishnamurthy | ECON | Unknown | | + + + + + | Hector Mack | ECON | [address] | | | | | [place] | | | | | [address] | | + + + + + | Najma Sanches | ECON | Unknown | | + + + + + Care Team Providers + +------+ + | Care Keg Inspector Name | Role | Phone | + +------+ + PCP | Unavailable | + +------+ + Encounter Details +--------+ + + + + | Date | Type | Department | Care Team | Description | +--------+ + + + + | 02/25/ | Hospital | [facility] | Colton Long, | | | 2000 | Encounter | MED CTR LABORATORY | [address] [place] [address] | | | | | [address] | [place] | | | | | [place] | [id number] | | | | | [address] | | | | | | [phone] | | | +--------+ + + + [...]
--- OUTSIDE RECORDS SUMMARY | ~2019-03-03 | XMS | Encounter Summary ---
Demographics + + + | Address | BAD ADDRESS | | | [place] [address] | + + + | Home Phone [...] | Author | [facility] | | | and Byronana | + + + | Organization | [facility] | | | and [...] | | | | | [place] [address] | | + + + + + | Najma Krishnamurthy | ECON | Unknown | | + + + + + | Hector Mack | ECON | [address] | | | | | [place] | | | | | [address] | | + + + + + | Najma Sanches | ECON | Unknown | | + + + + + Care Team Providers + +------+ + | Care Script Supervisor Name | Role | Phone | + +------+ + PCP | Unavailable | + +------+ + Encounter Details +--------+ + + + + | Date | Type | Department | Care Team | Description | +--------+ + + + + | 11/12/ | Hospital | [facility] | Lalo Londono MD | | | 2004 | Encounter | MED CTR GENERIC OP | [address] | | | | | CONV DEPT [address] | [address] [place] | | | | | [place], | [address] | | | | | [place] [address] | | | | | | [phone] | | | +--------+ + + + [...]
--- OUTSIDE RECORDS SUMMARY | ~2019-03-03 | XMS | Encounter Summary ---
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 Name | Role | Phone | + +------+ + | Tuan Chan MD | PCP | | + +------+ + Encounter Details +--------+ + + + + | Date | Type | Department | Care Team | Description | +--------+ + + + + | 08/05/ | Results | Dermatology | Khoa Manuel, | | | 2008 | Only | Medical at [facility] 16 | ,PhD Gloria | | | | | Floor [address] | Allergy Asthma | | | | | [place] Mailcode: CH16D | Dermatology 83[address] | | | | | [facility] | [facility] | | | | | and Healing, | [place] [address] | | | | | [facility] | [phone] | | | | | Floor [place], [place] | | | | | | [address] | | | | | | [phone] | | | +--------+ + + + [...] | + +--------+ + + + | DERMATOPATHOLOGY([facility] Routin | 08/05/2008 | | Results for this | | [facility]) | e | | | procedure [...] | | | | | MNT) | [id number] | | | | | | DESCRIPTION:Punch [...] | | | | | Jose Collier Jr. | | | | | | CheyPathologistElectroni [...] + + + + | [facility] | [address], [address] | [place] [address] | | | DERMATOPATHOLOGY | [address] | | | + + + + + documented in this encounter Visit Diagnoses Not on filedocumented in this encounter"
--- OUTSIDE RECORDS SUMMARY | ~2019-03-03 | XMS | Encounter Summary ---
Demographics + + + | Address | [address] | | | [place] [address] | + + + | Home Phone [...] [place] | | | | | [address] | | + + + + + Care Team Providers + +------+ + | Care Terminal Makeup Operator Name | Role | Phone | [...] | Dyslipidemia; | | | | Mailcode: XLF952 | | Dysmetabolic | | | | [facility] | | Syndrome X; Sleep | | | | [address], | | Apnea; Gout; DM Circ | | | | [place] [address] | | Dis Type II, | | | | [phone] | | Uncontrolled (HCC) | +--------+ + [...] + + + + | [facility] | [address] [facility] | [place] [address] | | | PATHOLOGY | [address] | | | + + + + + | [facility] | [facility] | [facility] [place] [address] | | | PATHOLOGY | [address] | | | + + + + + documented in this encounter Visit Diagnoses + + | Diagnosis | + + | CAD (coronary artery disease) Coronary atherosclerosis of unspecified type of vessel, | | inaja or graft | + + | Dyslipidemia [...]
--- OUTSIDE RECORDS SUMMARY | ~2019-03-03 | XMS | Encounter Summary ---
Demographics + + + | Address | BAD ADDRESS | | | [place] [address] | + + + | Home Phone [...] + | Author | [facility] | | | and Byronana | + + + | Organization | [facility] Wang | | [...] | | | | | [place] [address] | | + + + + + | Najma Krishnamurthy | ECON | Unknown | | + + + + + | Hector Mack | ECON | [address] | | | | | [place] | | | | | [address] | | + + + + + | Najma Sanches | ECON | Unknown | | + + + + + Care Team Providers + +------+ + | Care Feather Curling Machine Operator Name | Role | Phone | + +------+ + | Tuan Chan MD | PCP | | + +------+ + Encounter Details +--------+ + + + + | Date | Type | Department | Care Team | Description | +--------+ + + + + | 11/02/ | Orders Only | [facility] | Provider, | | | 2019 | | SYSTEM GENERIC OP | [address] | | | | | [address] | Nicholas Kolb. [address] | | | | | [address] [place], [place] | [place] [address] | | | | | [address] | | | | | | [phone] | | | +--------+ + + + [...]
--- OUTSIDE RECORDS SUMMARY | ~2019-03-03 | XMS | Encounter Summary ---
Demographics + + + | Address | [address] | | | [place] [address] | + + + | Home Phone [...] + + + | Author | [facility] | + + + | Organization | [facility] | + + [...] [place] | | | | | [address] | | + + + + + Care Team Providers + +------+ + | Care Oven Laborer Name | Role | Phone | + [...] | | | | Mailcode: CH10U | [place], [place] | | | | | [facility] | [address] | | | | | and Healing, | [phone] | | | | | [facility] | | | | | | Floor [place], [place] | | | | | | [address] | | | | | | [phone] | | | +--------+---------+ + + + [...] Resident Division of Urology and Renal Transplantation [facility] oe Hdez - 10/19/2007 1:51 PM [...] Lab) | | | | | | [facility] | | | | | | [address] | | | | [address] | | | | | | [place], [place] | | | | | | [id number]: Test | | | | | | performed at [facility] | | | | | | [facility] | | | | | | Laboratory. | | | | + + + + + + + + | Specimen | + + | Urine - Urine | + + + + + + + | Performing | Address | City/State/Zipcode | Phone Number | | Organization | | | | + + + + + | [facility] | [address] | [place] [address] | | | LAB-MICRO | | | [...] BRITTNEY | [address] | [place], [place] | | | [facility] POINT OF CARE | [address] | [address] | | | TESTS | | | | + + + + + | [facility] | [address] | [place], [place] | | | TESTS | [address] | [address] | | + + + + + documented in this encounter Visit Diagnoses + + | Diagnosis | + + | Urolithiasis - Primary Urinary calculus, unspecified | + + documented in this encounter"
--- OUTSIDE RECORDS SUMMARY | ~2019-03-03 | XMS | Encounter Summary ---
Demographics + + + | Address | [address] | | | [place] [address] | + + + | Home Phone [...] [place] | | | | | [address] | | + + + + + Care Team Providers + +------+ + | Care Safety Supervisor Name | Role | Phone | [...] 2005 | Reg[address]ratio | [address] | [phone] | | | | [address] | [address] Mailcode: RPB07 | | | | | | [place], [place] | | | | | | [address] | | | | | | [phone] | | | +--------+ + + + [...]
--- OUTSIDE RECORDS SUMMARY | ~2019-03-03 | XMS | Encounter Summary ---
Demographics + + + | Address | BAD ADDRESS | | | [place] [address] | + + + | Home Phone | | + + + | Preferred Language | Unknown | + + + | Marital Status | | + + + | Druze Affiliation | 1077 | + + + | Race | Unknown | + + + | Ethnic Group | Unknown | + + + Author + + + | Author | [facility] | | | and Byronana | + + + | Organization | [facility] Wang | | | and [...] | | | | | [place] [address] | | + + + + + | Najma Krishnamurthy | ECON | Unknown | | + + + + + | Hector Mack | ECON | [address] | | | | | [place] | | | | | [address] | | + + + + + | Najma Sanches | ECON | Unknown | | + + + + + Care Team Providers + +------+ + | Care Assembler Type Bar And Segment Name | Role | Phone | + +------+ + PCP | Unavailable | + +------+ + Encounter Details +--------+ + + + + | Date | Type | Department | Care Team | Description | +--------+ + + + + | 02/15/ | Hospital | [facility] | | | | 1995 - | Encounter | MED CTR ICU [address] | | | | | | [place], | | | | 02/18/ | | [place] [address] | | | | 1995 | | [phone] | | | +--------+ + + + [...]
--- OUTSIDE RECORDS SUMMARY | ~2019-03-03 | XMS | Encounter Summary ---
Demographics + + + | Address | [address] | | | [place] [address] | + + + | Home Phone [...] [place] | | | | | [address] | | + + + + + Care Team Providers + +------+ + | Care Shop Lead Name | Role | Phone | + [...] | | etiology | [facility] | Mailcode: | | | | | Procedures | [facility] | [facility] Center | | | | | Consult | 2010 | for Health | | | | | | [place], | and Healing, | | | | | | [place] [address] | [address], | | | | | | Phone: | 16th Floor | | | | | | [phone] | [place], [place] | | | | | | Fax: | [address] | | | | | | [phone] | Phone: | | | | | | | [phone] | | | | | | | Fax: | | | | | | | [phone] | +--------+--------+ + + + + Encounter Details +--------+---------+ + + + | Date | Type | Department | Care Team | Description | +--------+---------+ + + + | 08/05/ | Office | Dermatology | Khoa Manuel, | Rash and Other | | 2008 | Visit | Medical at [facility] | ,PhD Castro | Nonspecific Skin | | | | Floor [address] | Allergy Asthma | Eruption (Primary | | | | Ave Mailcode: 16D | Dermatology [address] | Dx) | | | | [facility] | [facility] | | | | | and Healing, | [place] [address] | | | | | [facility] | [phone] | | | | | Floor [place], [place] | | | | | | [address] | | | | | | [phone] | | | +--------+---------+ + + + [...] plan of care. Khoa Manuel MD, PhD Probation Manager, Department of Dermatology [facility] 08/05/2008 Genoveva Galeano Md - 08/05/2008 2:39 [...] skin culture done by Dr. Chan in [facility] prior to her gastric by pass [...] the day. She has never seen a technical service representative. The patient's dermatology intake form was reviewed, signed, and dated. Her relevant PMH, F H, and SH includes: PAST MEDICAL HISTORY: --Gastric bypass in 02/[address] Johnson, used to weigh 450 pounds --s/p abdominoplasty in 06/06 --s/p CABG in 2000 in [facility] --s/p cholecystectomy 35 years ago --s/p appy [...] Natalie Olsen M.D. Resident, Department of Dermatology [facility] [place] documented in th is encounter Plan of Treatment + + +--------+ + + | Name | Type | Priori | Associated Diagnoses | Order Schedule | | | | ty | | | + + +--------+ + + | MT BIOPSY OF SKIN | Procedures | Routin [...]
--- OUTSIDE RECORDS SUMMARY | ~2019-03-03 | XMS | Encounter Summary ---
Demographics + + + | Address | [address] | | | [place] [address] | + + + | Home Phone [...] 13 | | | | | [place] | | | | | [address] | | + + + + + Care Team Providers + +------+ + | Care Health Outcomes Liaison Name | Role | Phone | [...] [id number] | | | | | | [place], [place] | | | | | | [address] | | | | | | [phone] | | | +--------+ + + + [...] + + + + + | [facility] DEPARTMENT OF | [address] | [place] [address] | | | PATHOLOGY | [address] | | | + + + + + | [facility] DEPARTMENT OF | [address] [facility] [address] | [place] [address] | | | PATHOLOGY | [address] [...] | + + + + + | [facility] | [address] [place] [address] | [place] [address] | | | PATHOLOGY | [address] | | | + + + + + | [facility] DEPARTMENT | [address] [place] [address] | [place] [address] | | | PATHOLOGY | [address] [...] + + + + + | [facility] DEPARTMENT OF | [address] | [place] [address] | | | PATHOLOGY | [address] | | | + + + + + | [facility] DEPARTMENT OF | [address] | [place] [address] | | | PATHOLOGY | [address] [...] DEPARTMENT OF | [address] | [place] [address] | | | PATHOLOGY | [address] | | | + + + + + | [facility] DEPARTMENT | [address] | [place] [address] | | | PATHOLOGY | [address] | | | + + + + + PHOSPHORUS, PLASMA (02/08/2006 6:43 AM PST) + +-------+ + + + | Component | Value | Ref Range | Performed | Pathologist | | | | | At | Signature | + +-------+ + + + | PHOSPHORUS, | 2.8 | 2.4 - 4.7 mg/dL | [facility] | | | PLASMA | [...] + + + + + | [facility] DEPARTMENT OF | [address] [facility] [address] | [place] [address] | | | PATHOLOGY | [address] | | | + + + + + | [facility] DEPARTMENT OF | [address] [facility] [address] | [place] [address] | | | PATHOLOGY | [address] [...] DEPARTMENT OF | [address] | [place] [address] | | | PATHOLOGY | [address] | | | + + + + + | [facility] DEPARTMENT OF | [address] | [place] [address] | | | PATHOLOGY | [address] [...] + + + + + | [facility] DEPARTMENT OF | [address] | [place] [address] | | | PATHOLOGY | [address] | | | + + + + + | [facility] DEPARTMENT OF | [address] | [place] [address] | | | PATHOLOGY | [address] [...] | + + + + + | [facility] | [address] [facility] [address] | [place] [address] | | | PATHOLOGY | [address] | | | + + + + + | [facility] | [address] [facility] [address] | [place] [address] | | | PATHOLOGY | [address] | | | + + + + + PHOSPHORUS, PLASMA (02/08/2006 4:30 AM PST) + +-------+ + + + | Component | Value | Ref Range | Performed | Pathologist | | | | | At | Signature | + +-------+ + + + | PHOSPHORUS, | 2.7 | 2.4 - 4.7 mg/dL | [facility] | | | PLASMA | [...] + + + + + | [facility] DEPARTMENT OF | [address] | [place] [address] | | | PATHOLOGY | [address] | | | + + + + + | [facility] DEPARTMENT OF | [address] | [place] [address] | | | PATHOLOGY | [address] [...] | + + + + + | [facility] | [address] [facility] [address] | [place] [address] | | | PATHOLOGY | [address] | | | + + + + + | [facility] | [address] [facility] [address] | [place] [address] | | | PATHOLOGY | [address] [...] | + + + + + | [facility] | [address] [facility] [address] | [place] [address] | | | PATHOLOGY | [address] | | | + + + + + | [facility] | [address] [place] [address] | [place] [address] | | | PATHOLOGY | [address] [...] + + + + + | [facility] DEPARTMENT OF | [address] | [place] [address] | | | PATHOLOGY | [address] | | | + + + + + | [facility] DEPARTMENT OF | [address] | [place] [address] | | | PATHOLOGY | [address] [...] | + + + + + | [facility] | [address] | [place] [address] | | | PATHOLOGY | [address] | | | + + + + + | [facility] | [address] [place] [address] [address] | [place] [address] | | | PATHOLOGY | [address] [...] | + + + + + | [facility] | [address] [facility] [address] | [place] [address] | | | PATHOLOGY | [address] | | | + + + + + | [facility] | [address] [facility] | [place] [address] | | | PATHOLOGY | [address] [...] DEPARTMENT OF | [address] | [place] [address] | | | PATHOLOGY | [address] | | | + + + + + | [facility] DEPARTMENT | [address] | [place] [address] | | | PATHOLOGY | [address] [...] + + + + + | [facility] DEPARTMENT OF | [address] | [place] [address] | | | PATHOLOGY | [address] | | | + + + + + | [facility] DEPARTMENT OF | [address] | [place] [address] | | | PATHOLOGY | [address] [...] | + + + + + | [facility] | [address] [facility] | [place] [address] | | | PATHOLOGY | [address] | | | + + + + + | [facility] | [address] [facility] [address] | [place] [address] | | | PATHOLOGY | [address] | | | + + + + + MAGNESIUM, PLASMA (02/07/2006 4:30 AM PST) + +-------+ + + + | Component | Value | Ref Range | Performed | Pathologist | | | | | At | Signature | + +-------+ + + + | MAGNESIUM,P | 1.9 | 1.8 - 2.5 mg/dL | [facility] | | | LASMA | [...] + + + + + | [facility] DEPARTMENT OF | [address] | [place] [address] | | | PATHOLOGY | [address] | | | + + + + + | [facility] DEPARTMENT OF | [address] | [place] [address] | | | PATHOLOGY | [address] [...] DEPARTMENT OF | [address] | [place] [address] | | | PATHOLOGY | [address] | | | + + + + + | [facility] DEPARTMENT OF | [address] | [place] [address] | | | PATHOLOGY | [address] [...] + + + + + | [facility] DEPARTMENT OF | [address] | [place] [address] | | | PATHOLOGY | [address] | | | + + + + + | [facility] DEPARTMENT OF | [address] | [place] [address] | | | PATHOLOGY | [address] [...] No. | | | | | | [phone], medical | | | | | | record [phone], ICD-9 | | | | | | [...] + | Performing | Address | City/State[facility] | Phone Number | | Organization | [...] + + + + + | [facility] DEPARTMENT OF | [address] | [place] [address] | | | PATHOLOGY | [address] | | | + + + + + | [facility] | [address] | [place] [address] | | | PATHOLOGY | [address] [...] DEPARTMENT OF | [address] | [place] [address] | | | PATHOLOGY | [address] | | | + + + + + | [facility] DEPARTMENT OF | [address] | [place] [address] | | | PATHOLOGY | [address] [...] DEPARTMENT OF | [address] | [place] [address] | | | PATHOLOGY | [address] | | | + + + + + | [facility] DEPARTMENT | [address] | [place] [address] | | | PATHOLOGY | [address] [...] | + + + + + | [facility] | [address] | [place] [address] | | | PATHOLOGY | [address] | | | + + + + + | [facility] | [facility] [address] | [place] [address] | | | PATHOLOGY | [address] [...] | + + + + + | [facility] | [address] [place] [address] | [place] [address] | | | PATHOLOGY | [address] | | | + + + + + | [facility] DEPARTMENT | [address] [place] [address] | [place] [address] | | | PATHOLOGY | [address] [...] + + + + + | [facility] DEPARTMENT OF | [address] [facility] | [place] [address] | | | PATHOLOGY | [address] | | | + + + + + | [facility] DEPARTMENT OF | [address] [facility] | [place] [address] | | | PATHOLOGY | [address] [...] + + + + + | [facility] DEPARTMENT | [address] | [place] [address] | | | PATHOLOGY | [address] | | | + + + + + | [facility] | [facility] [address] | [place] [address] | | | PATHOLOGY | [address] [...] DEPARTMENT OF | [address] | [place] [address] | | | PATHOLOGY | [address] | | | + + + + + | [facility] DEPARTMENT OF | [address] | [place] [address] | | | PATHOLOGY | [address] [...] + + + + + | [facility] DEPARTMENT OF | [address] | [place] [address] | | | PATHOLOGY | [address] | | | + + + + + | [place] DEPARTMENT OF | [address] | [place] [address] | | | PATHOLOGY | [address] [...] | + +---------+ + + | [facility] DEPARTMENT OF | | | [...] by | | | | | | [facility] | | | | | | [facility] [employer]. | | | | + + + + + + + + | Specimen | + + | | + + + + + + + | Performing | Address | City/State/Zipcode | Phone Number | | Organization | | | | + + + + + | [facility] | [address] | [place] [address] | | | LABORATORY | | | | + + + + + documented in this encounter Visit Diagnoses Not on filedocumented in this encounter"
--- OUTSIDE RECORDS SUMMARY | ~2019-03-03 | XMS | Encounter Summary ---
Demographics + + + | Address | BAD ADDRESS | | | [place] [address] | + + + | Home Phone [...] | Author | [facility] | | | and Byronana | + + + | Organization | [facility] | | | and [...] | | | | | [place] [address] | | + + + + + | Najma Krishnamurthy | ECON | Unknown | | + + + + + | Hector Mack | ECON | [address] | | | | | [place] | | | | | [address] | | + + + + + | Najma Sanches | ECON | Unknown | | + + + + + Care Team Providers + +------+ + | Care Ragman Name | Role | Phone | + +------+ + PCP | Unavailable | + +------+ + Encounter Details +--------+ + + + + | Date | Type | Department | Care Team | Description | +--------+ + + + + | 08/23/ | Hospital | [facility] | | | | 1991 | Encounter | MED CTR LABORATORY | | | | | | [address] | | | | | | [place] | | | | | | [address] | | | | | | [phone] | | | +--------+ + + + [...]
--- OUTSIDE RECORDS SUMMARY | ~2019-03-03 | XMS | Encounter Summary ---
Demographics + + + | Address | BAD ADDRESS | | | [place] [address] | + + + | Home Phone [...] + + | Author | [facility] | | | and Byronana | + + + | Organization | [facility] | | | and [...] | | | | | [place] [address] | | + + + + + | Najma Krishnamurthy | ECON | Unknown | | + + + + + | Hector Mack | ECON | [address] | | | | | [place] | | | | | [address] | | + + + + + | Najma Sanches | ECON | Unknown | | + + + + + Care Team Providers + +------+ + | Care Business Systems Technician Name | Role | Phone | [...] 2018 | | HOSPITAL EMERGENCY | C, LICENSED ELECTRICIAN [address] | demonstrated | | | | CENTER [address] | [address] [place] | (Primary Dx) | | | | DR [place] | [address] | | | | | [address] | | | | | | [phone] | | | +--------+ + + + [...] D?MRN: | | | | | | [id number] | | | [id number] | | | ecurit | | | [...] | | | St. | | | [place] | | | y | | | [...] | | | [phone] | | | [phone] | | | .These | | | [...] | | | Pain | | | Elieso | | | 23, | | | 2018 | | | [facility] | | [facility] | | | [place] | | | y H. | | [...] | | | St. | | | [place] | | | y H. | | [...] | | | St. | | | [place] | | | y H. | | [...] | | | St. | | | [place] | | | y H. | | [...] | | | St. | | | [place] | | | y | | | [...] + + | [facility] | [address] | [place] [address] | [phone] | | HOSPITAL LABORATORY | | | [...] - 1.030 | [facility] | | | [place] | | | [facility] | | | [...] + + | [facility] | [address] | [place] [address] | [phone] | | HOSPITAL LABORATORY | | | [...] + + | [facility] | [address] | [place] [address] | [phone] | | HOSPITAL LABORATORY | | | [...] | mL/min/1.73m2 | [facility] | | | IRAQI | RATE,ESTIMATED | | HOSPITAL | | | | mL/min/1.51w4Mbjj than | | LABORATORY | | | [...] + + | [facility] | [address] | [place] [address] | [phone] | | HOSPITAL LABORATORY | | | [...] + + | [facility] | [address] | [place] [address] | [phone] | | HOSPITAL LABORATORY | | | | + + + + + documented in this encounter Visit Diagnoses + + | Diagnosis | + + | Feared condition not demonstrated - Primary Person with feared complaint in whom no | | diagnosis was made | + + documented in this encounter
--- OUTSIDE RECORDS SUMMARY | ~2019-03-03 | XMS | Encounter Summary ---
Demographics + + + | Address | [address] | | | [place] [address] | + + + | Home Phone [...] [place] | | | | | [address] | | + + + + + Care Team Providers + +------+ + | Care General Manager Land Department Name | Role | Phone | + [...] Hernia of | Aysha Crow | s [address] | | | | | unspecified | [address] | Isaiah [address] | | | | | site of | [address] | Mary Becker | | | | | abdominal | [place], [place] | Mailcode: | | | | | cavity | [address] | [address] [facility] | | | | | without | | Hospital | | | | | mention of | | [place], [place] | | | | | obstruction | | [address] | | | | | or gangrene | | Phone: | | | | | Procedures | | [phone] | | | | | CT ABDOMEN | | Fax: | | | | | WWO CONTRAST | | [phone] | | | | | LTD | | | +--------+--------+ + + + + Encounter Details +--------+ + + + + | Date | Type | Department | Care Team | Description | +--------+ + + + + | 08/05/ | Hospital | Radiology/Imaging | | | | 2008 | Encounter | Lab at [facility] [address] | | | | | [address] Mailcode: | | | | | | [facility] [place] [facility] | | | | | | Health and Healing, | | | | | | Building 1, [facility] | | | | | | Floor [place], [place] | | | | | | [address] | | | | | | [phone] | | | +--------+ + + + [...]
--- OUTSIDE RECORDS SUMMARY | ~2019-03-03 | XMS | Encounter Summary ---
Demographics + + + | Address | [address] | | | [place] [address] | + + + | Home Phone [...] [place] | | | | | [address] | | + + + + + Care Team Providers + +------+ + | Care Social Service Liaison Name | Role | Phone | [...] | | | obstructing | [facility]INT | [address] | | | | | calculus at | [address] | Ave | | | | | the right | [facility] | [place], [place] | | | | | [place]. | [address] | [address] | | | | | | [address] | Phone: | | | | | | [place], | [phone] | | | | | | [place] [address] | Fax: | | | | | | Phone: | [phone] | | | | | | [phone] | | | | | | | Fax: | | | | | | | [phone] | | +--------+--------+ + + + + [...] | | | | Mailcode: CH10U | [place], [place] | specified | | [facility] | [address] | pre-operative | | | | and Healing, | [phone] | examination | | | | | | | | | | Floor [place], [place] | | | | | | [address] | | | | | | [phone] | | | +--------+---------+ + + + [...] surgeries scheduled to take place [place] the [place] [facility]: Surgeries scheduled in the [facility] (4 North): registration is located on the 4th floor of [facility] (Day [facility]). Surgeries scheduled in the [facility]: registration is located on the 9th floor. Surgeries scheduled in [facility]: registration is located on the 6th floor. Surgeries scheduled in the [facility]: registration is located i n the [facility] on the first floor. For surgeries scheduled to take place at the [facility]: registration is l ocated [...] If you use specialized medical equipment at [facility], please check with your provider before bringing it with you into the hospital. Registration Process for all Admissions/Surgeries 1. Please bring your insurance card(s) with you and be prepared to pay any co-payment, co-i nsurance or deposit that may be required. 2. Once you arrive at the registration desk, you will be interviewed by a Patient Access Se rvice Specialist (BLIL). Demographics will be verified (example: name, date [...] female referred by Dr. Deirdre Anne for [facility] percutaneous ultrasonic lithotripsy Subjective: previous right ureterorenoscopy [...] infarction in 2001 followed by CABG in [place]. She has been maintained of Plavx since then but stopped it over a week ago. She has no cardiac symptoms especially since w eight loss from 550 to 190 after gastric bypass in 2005. Pannus removed more recently by Dr. Gia Amin at [facility]. 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 Social History Main Topics Smoking status: Former [...] + + documented in this encounter Results [facility] - BASIC METABOLIC SET (03/11/2011 5:13 [...] + + + | Test performed by: [facility] | [facility] | | Outpatient Lab CH[address] [place], [place] [address] | DEPARTMENT OF | | | PATHOLOGY | + + + + + + + + | Performing | Address | City/State/Zipcode | Phone Number | | Organization | | | | + + + + + | [facility] DEPARTMENT OF | [address] | [place] [address] | | | PATHOLOGY | [address] [...] | Test performed by: [facility] | [facility] | | Outpatient Lab [facility] [address] [place], [place] [address] | DEPARTMENT OF | | Sent to Core Lab. | PATHOLOGY | + + + + + + + + | Performing | Address | City/State/Zipcode | Phone Number | | Organization | | | | + + + + + | [facility] DEPARTMENT | [address] | [place] [address] | | | PATHOLOGY | [address] | | | + + + + + 12 LEAD ECG (03/11/2011 4:58 PM PST) + + + + + + | Component | Value | Ref Range | Performed | Pathologist | | | | | At | Signature | + + + + + + | VENTRICULAR | 62 | BPM | [facility] DEPT | | | RATE | [...] view image for the detailed interpretation from [facility] results. | CARDIOLOGY | + + + + + + + + | Performing | Address | City/State/Zipcode | Phone Number | | Organization | | | | + + + + + | [facility] DEPT OF | [address] | [place], [place] | | | CARDIOLOGY | [address] | [address] | | + + + + + [...] | | | | | | RLB ([facility]) | | | | | | [place] | | | | | | [facility] | | | | | | [address] [address] | | | | | | [place], [place] | | | | | | [address] | | | | + + + + + + + + | Specimen | + + | Urine - Voided | + + + + + + + | Performing | Address | City/State/Zipcode | Phone Number | | Organization | | | | + + + + + | [facility] | [address] | [place] [address] | | | LAB-MICRO | | | [...] + | MARLEEN CALLAWAY | [address] [facility] | [place] [address] | | | OF CARE TESTS | | | | + + + + + documented in this encounter Visit Diagnoses + + | Diagnosis | + + | Kidney stone - Primary Calculus of kidney | + + | Other specified pre-operative examination | + + documented in this encounter
--- OUTSIDE RECORDS SUMMARY | ~2019-03-03 | XMS | Encounter Summary ---
Demographics + + + | Address | [address] | | | [place] [address] | + + + | Home Phone [...] [place] | | | | | [address] | | + + + + + Care Team Providers + +------+ + | Care Rn Lactation Consultant Name | Role | Phone | [...] | | | | | | | [facility] | | | | | | | [address] | | | | | | | [facility] | | | | | | | Hospital | | | | | | | [place], [place] | | | | | | | [address] | | | | | | | Phone: | | | | | | | [phone] | | | | | | | Fax: | | | | | | | [phone] | +--------+--------+ + + + + Encounter Details +--------+---------+ + + + | Date | Type | Department | Care Team | Description | +--------+---------+ + + + | 05/09/ | Office | Preoperative | Steven, | Preop Examination | | 2008 | Visit | Medicine Clinic at | BITA [facility] | (Primary Dx); | | | | [facility] 4th Floor [address] | | Long-Term (Current) | | | | [address] | | Use of | | | | Mailcode: CH4S | | Anticoagulants | | | | [facility] | | | | | | and Healing, | | | | | | Building [facility] Floor | | | | | | [place], [place] | | | | | | [address] | | | | | | [phone] | | | +--------+---------+ + + + [...] + + + | [facility] DEPARTMENT OF | [address] | [place] [address] | | | PATHOLOGY | [address] | | | + + + + + | [facility] DEPARTMENT OF | [facility] | [place] [address] | | | PATHOLOGY | [address] [...] + + + | [facility] DEPARTMENT OF | [address] | [place] [address] | | | PATHOLOGY | [address] | | | + + + + + | [facility] DEPARTMENT OF | [address] [facility] | [place] [address] | | | PATHOLOGY | [address] [...] Performed At | + + + | [id number] Estimated GFR > 60 mL/min/1.73 sq m if non- | [facility] | | Maltese [id number] Estimated GFR > 60 mL/min/1.73 sq m if | DEPARTMENT OF | | Maltese GFR is estimated using the MDRD equation [...] + + + | [facility] DEPARTMENT OF | [address] | [place] [address] | | | PATHOLOGY | [address] | | | + + + + + | [facility] DEPARTMENT OF | [facility] [address] | [place] [address] | | | PATHOLOGY | [address] [...] + + + | [facility] DEPARTMENT OF | [address] | [place] [address] | | | PATHOLOGY | [address] | | | + + + + + | [facility] DEPARTMENT OF | [address] [facility] | [place] [address] | | | PATHOLOGY | [address] [...]
--- OUTSIDE RECORDS SUMMARY | ~2019-03-03 | XMS | Encounter Summary ---
Demographics + + + | Address | BAD ADDRESS | | | [place] [address] | + + + | Home Phone [...] | Author | [facility] | | | and Byronana | + + + | Organization | [facility] | | | and [...] | | | | | [place] [address] | | + + + + + | Najma Krishnamurthy | ECON | Unknown | | + + + + + | Hector Mack | ECON | [address] | | | | | [place] | | | | | [address] | | + + + + + | Najma Sanches | ECON | Unknown | | + + + + + Care Team Providers + +------+ + | Care Internet Consultant Name | Role | Phone | + +------+ + PCP | Unavailable | + +------+ + Encounter Details +--------+ + + + + | Date | Type | Department | Care Team | Description | +--------+ + + + + | 09/26/ | Hospital | [facility] | | | | 1994 - | Encounter | MED CTR MED ONC | | | | | | [address] | | | | 10/04/ | | [place] [address] | | | | 1994 | | [phone] | | | +--------+ + + + [...]
--- OUTSIDE RECORDS SUMMARY | ~2019-03-03 | XMS | Encounter Summary ---
Demographics + + + | Address | BAD ADDRESS | | | [place] [address] | + + + | Home Phone | | + + + | Preferred Language | Unknown | + + + | Marital Status | | + + + | Shinto Affiliation | 1077 | + + + | Race | Unknown | + + + | Ethnic Group | Unknown | + + + Author + + + | Author | [facility] | | | and Byronana | + + + | Organization | [facility] | | | and [...] | | | | | [place] [address] | | + + + + + | Najma Krishnamurthy | ECON | Unknown | | + + + + + | Hector Mack | ECON | [address] | | | | | [place] | | | | | [address] | | + + + + + | Najma Sanches | ECON | Unknown | | + + + + + Care Team Providers + +------+ + | Care Butcherette Name | Role | Phone | + +------+ + PCP | Unavailable | + +------+ + Encounter Details +--------+ + + + + | Date | Type | Department | Care Team | Description | +--------+ + + + + | 05/18/ | Hospital | [facility] | | | | 2000 | Encounter | MED CTR EMERGENCY | | | | | | CENTER [address] | | | | | | [place] | | | | | | [address] | | | | | | [phone] | | | +--------+ + + + [...]
--- OUTSIDE RECORDS SUMMARY | ~2019-03-03 | XMS | Encounter Summary ---
Demographics + + + | Address | BAD ADDRESS | | | [place] [address] | + + + | Home Phone | | + + + | Preferred Language | Unknown | + + + | Marital Status | | + + + | Methodist Affiliation | 1077 | + + + | Race | Unknown | + + + | Ethnic Group | Unknown | + + + Author + + + | Author | [facility] | | | and Byronana | + + + | Organization | [facility] [...] | | | | | [place] [address] | | + + + + + | Najma Krishnamurthy | ECON | Unknown | | + + + + + | Hector Mack | ECON | [address] | | | | | [place] | | | | | [address] | | + + + + + | Najma Sanches | ECON | Unknown | | + + + + + Care Team Providers + +------+ + | Care Heater Helper Name | Role | Phone | [...] [address] | | | | | | [place], [place] | | | | | | [address] | | | | | | [phone] | | | +--------+ + + + [...]
--- OUTSIDE RECORDS SUMMARY | ~2019-03-03 | XMS | Encounter Summary ---
Demographics + + + | Address | [address] | | | [place] [address] | + + + | Home Phone [...] [place] | | | | | [address] | | + + + + + Care Team Providers + +------+ + | Care Prototype Carpenter Name | Role | Phone | + [...] | | | | | | [place] [address] | | | +--------+--------+ + + + [...]
--- OUTSIDE RECORDS SUMMARY | ~2019-03-03 | XMS | Encounter Summary ---
Demographics + + + | Address | BAD ADDRESS | | | [place] [address] | + + + | Home Phone [...] | Author | [facility] | | | and Byronana | + + + | Organization | [facility] [...] | | | | | [place] [address] | | + + + + + | Najma Krishnamurthy | ECON | Unknown | | + + + + + | Hector Mack | ECON | [address] | | | | | [place] | | | | | [address] | | + + + + + | Najma Sanches | ECON | Unknown | | + + + + + Care Team Providers + +------+ + | Care Clasp Machine Operator Name | Role | Phone | + +------+ + PCP | Unavailable | + +------+ + Encounter Details +--------+ + + + + | Date | Type | Department | Care Team | Description | +--------+ + + + + | 04/27/ | Hospital | [facility] | Trevor Hunter | | | 2000 - | Encounter | HEART MED CTR | A Jesus Bartholomew | | | | | CARDIAC TELEMETRY | [address] | | | 05/15/ | | [address] | [address] [place], [place] | | | 2000 | | [place], [place] | [id number] | | | | | [address] | | | | | | [phone] | | | +--------+ + + + [...]
--- OUTSIDE RECORDS SUMMARY | ~2019-03-03 | XMS | Encounter Summary ---
Demographics + + + | Address | [address] | | | [place] [address] | + + + | Home Phone [...] + + + | Author | [facility] | + + + | Organization | [facility] | + + + | Address | Unknown | + + + | Phone | Unavailable | + + + Support + + + + + | Name | Relationship | Address | Phone | + + + + + | Hector Mack | ECON | [address] | | | | | [place] | | | | | [address] | | + + + + + Care Team Providers + +------+ + | Care Data Management Specialist Name | Role | Phone | + +------+ + | Tuan Chan MD | PCP | | + +------+ + Encounter Details +--------+ + + + + | Date | Type | Department | Care Team | Description | +--------+ + + + + | 02/13/ | [employer] | Urology Fertility | Renato Chow MD | Kidney stones | | 2010 | | [address] | [address] | (Primary Dx) | | | | Mailcode: CH10U | [place], [place] | | | | | [facility] | [address] | | | | | and Healing, | [phone] | | | | | [facility] | | | | | | Floor [place], [place] | | | | | | [address] | | | | | | [phone] | | | +--------+ + + + [...]
--- OUTSIDE RECORDS SUMMARY | ~2019-03-03 | XMS | Encounter Summary ---
Demographics + + + | Address | [address] | | | [place] [address] | + + + | Home Phone [...] [place] | | | | | [address] | | + + + + + Care Team Providers + +------+ + | Care Adobe Maker Name | Role | Phone | + +------+ + | Tuan Chan MD | PCP | | + +------+ + Encounter Details +--------+ + + + + | Date | Type | Department | Care Team | Description | +--------+ + + + + | 02/05/ | Respiratory | | Other, Faculty | | | 2005 | Therapy | | [phone] | | +--------+ + + + + [...] + + + | RESPIRATORY | Pt's roll icer machine and | | | | | CARE [...] | | | | | Sirisha Vigil CRUTCH MAKER | | | | + + + [...] [facility] | [address] | [place], [place] | | | DIAGNOSTICS - | [address] | [address] | | | PULMONARY FUNCTION | | | | + + + + + documented in this encounter Visit Diagnoses Not on filedocumented in this encounter"
--- OUTSIDE RECORDS SUMMARY | ~2019-03-03 | XMS | Encounter Summary ---
Demographics + + + | Address | [address] | | | [place] [address] | + + + | Home Phone [...] [place] | | | | | [address] | | + + + + + Care Team Providers + +------+ + | Care Gear Grinder Name | Role | Phone | + +------+ + | Tuan Chan MD | PCP | | + +------+ + Encounter Details +--------+ + + + + | Date | Type | Department | Care Team | Description | +--------+ + + + + | 02/06/ | Respiratory | | Other, Faculty | | | 2005 | Therapy | | [phone] | | +--------+ + + + + [...] | | | | | Ap Butler, IMAGE PROCESSING ENGINEER | | | | + + + [...] SPECIAL | [address] | [place], [place] | | | DIAGNOSTICS - | [address] | [address] | | | PULMONARY FUNCTION | | [...] [facility] | [address] | [place], [place] | | | DIAGNOSTICS - | [address] | [address] | | | PULMONARY FUNCTION | | [...] [facility] | [address] | [place], [place] | | | DIAGNOSTICS - | [address] | [address] | | | PULMONARY FUNCTION | | [...] SPECIAL | [address] | [place], [place] | | | DIAGNOSTICS - | [address] | [address] | | | PULMONARY FUNCTION | | [...] 94 | | | | | | Neo Alas, IMAGE PROCESSING ENGINEER | | | | + + + [...] [facility] | [address] | [place], [place] | | | DIAGNOSTICS - | [address] | [address] | | | PULMONARY FUNCTION | | [...] [facility] | [address] | [place], [place] | | | DIAGNOSTICS - | [address] | [address] | | | PULMONARY FUNCTION | | [...] [facility] | [address] | [place], [place] | | | DIAGNOSTICS - | [address] | [address] | | | PULMONARY FUNCTION | | [...] | | | | | Jeff Watts IMAGE PROCESSING ENGINEER | | | | + + + [...] [facility] | [address] | [place], [place] | | | DIAGNOSTICS - | [address] | [address] | | | PULMONARY FUNCTION | | [...] | | | | | Mark Giraldo, IMAGE PROCESSING ENGINEER | | | | + + + [...] [facility] | [address] | [place], [place] | | | DIAGNOSTICS - | [address] | [address] | | | PULMONARY FUNCTION | | [...] [facility] | [address] | [place], [place] | | | DIAGNOSTICS - | [address] | [address] | | | PULMONARY FUNCTION | | [...] + + | [facility] | [address] | [place], [place] | | | DIAGNOSTICS - | [address] | [address] | | | PULMONARY FUNCTION | | [...] 10. | | | | | | BARREL HEADER IN USE: PATIENT SELF | | | [...] NONE | | | | | | DHXLIP02 HOURS . . | | | | [...] | | . Sirisha Vigil, [facility] | | | | + + [...] [facility] | [address] | [place], [place] | | | DIAGNOSTICS - | [address] | [address] | | | PULMONARY FUNCTION | | [...] [facility] | [address] | [place], [place] | | | DIAGNOSTICS - | [address] | [address] | | | PULMONARY FUNCTION | | | | + + + + + documented in this encounter Visit Diagnoses Not on filedocumented in this encounter"
--- OUTSIDE RECORDS SUMMARY | ~2019-03-03 | XMS | Encounter Summary ---
Demographics + + + | Address | BAD ADDRESS | | | [place] [address] | + + + | Home Phone | | + + + | Preferred Language | Unknown | + + + | Marital Status | | + + + | Hoahaoism Affiliation | 1077 | + + + | Race | Unknown | + + + | Ethnic Group | Unknown | + + + Author + + + | Author | [facility] | | | and Byronana | + + + | Organization | [facility] [...] | | | | | [place] [address] | | + + + + + | Najma Krishnamurthy | ECON | Unknown | | + + + + + | Hector Mack | ECON | [address] | | | | | [place] | | | | | [address] | | + + + + + | Najma Sanches | ECON | Unknown | | + + + + + Care Team Providers + +------+ + | Care Internal Communications Specialist Name | Role | Phone | + +------+ + PCP | Unavailable | + +------+ + Encounter Details +--------+ + + + + | Date | Type | Department | Care Team | Description | +--------+ + + + + | 04/14/ | Hospital | [facility] | | | | 1996 | Encounter | MED CTR EMERGENCY | | | | | | CENTER [address] | | | | | | [place] | | | | | | [address] | | | | | | [phone] | | | +--------+ + + + [...]
--- OUTSIDE RECORDS SUMMARY | ~2019-03-03 | XMS | Encounter Summary ---
Demographics + + + | Address | [address] | | | [place] [address] | + + + | Home Phone [...] [address] | | | | | [place] | | | | | [address] | | + + + + + Care Team Providers + +------+ + | Care Statue Maker Name | Role | Phone | [...] | | Transcribed | | Mary [place], | | | | | | [place] [address] | | | | | | [phone] | | | | | | | [...] Pedraza MD - 06/18/2007 12:00 AM PDT [id number] | | [id number] ARETHA RAE [id number] | | [id number] Date: 06/18/2007 Attending Surgeon: Noe Hdez M.D. | | Rating Officer(s): Bryan Pedraza M.D. Preoperative Diagnosis(es): Right | | urolithiasis. Postoperative Diagnosis(es): Right urolithiasis. Procedures | | Performed: 1. Rigid cystourethroscopy. 2. Right retrograde pyelogram. 3. Right flexible | | nephroureteroscopy with holmium laser lithotripsy. 4. Right ureteral stent placement | | (6-Australian x 24 cm). 5. Fluoroscopy with interpretation. [...] case. After | | surgical pause, a 21-Australian rigid cystoscope was inserted into the bladder [...] both proximally and distally. An | | 18-Australian Mirza catheter was then placed and filled [...] | | Chey Pedraza M.D. D / [id number] / [id number] / [id number] / | | [id number] Reviewed or Edited By Bryan Pedraza | [...] | | | After surgical pause, a 21-Australian rigid cystoscope was inserted into the | [...] both proximally and distally. An | | 18-Australian | | Mirza catheter was then placed [...] | | BDD / HS | | [id number] / [id number] / [id number] / [id number] | | | | | | | [...]
--- OUTSIDE RECORDS SUMMARY | ~2019-03-03 | XMS | Encounter Summary ---
Demographics + + + | Address | BAD ADDRESS | | | [place] [address] | + + + | Home Phone [...] Author | [facility] | | | and [place] | + + + | Organization | [facility] | | [...] | | | | | [place] [address] | | + + + + + | Najma Krishnamurthy | ECON | Unknown | | + + + + + | Hector Mack | ECON | [address] | | | | | [place] | | | | | [address] | | + + + + + | Najma Sanches | ECON | Unknown | | + + + + + Care Team Providers + +------+ + | Care Health And Safety Advisor Name | Role | Phone | + +------+ + PCP | Unavailable | + +------+ + Encounter Details +--------+ + + + + | Date | Type | Department | Care Team | Description | +--------+ + + + + | 03/01/ | Hospital | [facility] | | | | 1995 - | Encounter | MED CTR GENERIC OP | | | | | | CONV DEPT [address] | | | | 08/02/ | | [place], | | | | 1997 | | [place] [address] | | | | | | [phone] | | | +--------+ + + + [...]
--- OUTSIDE RECORDS SUMMARY | ~2019-03-03 | XMS | Encounter Summary ---
Demographics + + + | Address | [address] | | | [place] [address] | + + + | Home Phone [...] | + + + + + | Hectro Mack | ECON | [address] | | | | | [place] | | | | | [address] | | + + + + + [...] 09/07/ | Office | Preoperative | 1, [facility] [address] | CAD (Coronary Artery | | 2008 | Visit | Medicine Clinic at | [address] | Disease); Gout; DM | | | | [facility] 4th Floor [address] | [place] [address] | Circ Dis Type II, | | | | [address] | | Uncontrolled (HCC); | | | | Mailcode: CH4S | | Obesity; Achalasia; | | | | [facility] | | Panniculitis; | | | | and Healing, | | Bruise; Other | | | | Building 1,4th Floor | | Specified | | | | [place], [place] | | Pre-Operative | | | | [address] | | Examination | | | | [phone] | | | +--------+---------+ + + + [...] uncontrolled(250.72) | | | | | | ([facility]) Obesity | | | | | [...] [facility] | [address] [facility] | [place] [address] | | | PATHOLOGY | [address] | | | + + + + + | [facility] | [address] [facility] | [place] [address] | | | PATHOLOGY | [address] [...] + + + + | [facility] | [address] [facility] | [place] [address] | | | PATHOLOGY | [address] | | | + + + + + | [facility] | [address] [facility] | [place] [address] | | | PATHOLOGY | [address] | | | + + + + + INR (09/07/2008 3:43 PM PDT) + + + + + + | Component | Value | Ref Range | Performed | Pathologist | | | | | At | Signature | + + + + + + | INR | 1.01Comment: | 0.90 - 1.20 INR | [facility] [...] DEPARTMENT OF | [address] | [place] [address] | | | PATHOLOGY | [address] | | | + + + + + | [facility] DEPARTMENT | [address] | [place] [address] | | | PATHOLOGY | [address] [...] Performed At | + + + | [id number] Estimated GFR > 60 mL/min/1.73 sq m if non- | [facility] | | Congolese [id number] Estimated GFR > 60 mL/min/1.73 sq m if | DEPARTMENT OF | | Congolese GFR is estimated using the MDRD equation [...] DEPARTMENT OF | [address] | [place] [address] | | | PATHOLOGY | [address] | | | + + + + + | [facility] DEPARTMENT OF | [address] | [place] [address] | | | PATHOLOGY | [address] [...] | | | | | SHAKIRA GARCIA (5900) | | | | | | on [...] + + + | Please click | [facility] DEPT OF | | on view image for the detailed interpretation from [employer] Video results. | CARDIOLOGY | | | | + + + + + + + + | Performing | Address | City/State/Zipcode | Phone Number | | Organization | | | | + + + + + | [facility] DEPT OF | [address] | [place], [place] | | | CARDIOLOGY | [address] | [address] | | + + + + + | [facility] DEPT OF | [address] | [place], [place] | | | CARDIOLOGY | [address] | [address] | | + + + + + documented in this encounter Visit Diagnoses + + | Diagnosis | + + | CAD (coronary artery disease) Coronary atherosclerosis of unspecified type of vessel, | | guidiville or graft | + + | Gout [...]
--- OUTSIDE RECORDS SUMMARY | ~2019-03-03 | XMS | Encounter Summary ---
Demographics + + + | Address | BAD ADDRESS | | | [place] [address] | + + + | Home Phone | | + + + | Preferred Language | Unknown | + + + | Marital Status | | + + + | Rastafari Affiliation | 1077 | + + + | Race | Unknown | + + + | Ethnic Group | Unknown | + + + Author + + + | Author | [facility] | | | and [place] | + + + | Organization | [facility] | [...] | | | | | [place] [address] | | + + + + + | Najma Krishnamurthy | ECON | Unknown | | + + + + + | Hector Mack | ECON | [address] | | | | | [place] | | | | | [address] | | + + + + + | Najma Sanches | ECON | Unknown | | + + + + + Care Team Providers + +------+ + | Care Pathology Assistant Name | Role | Phone | + +------+ + PCP | Unavailable | + +------+ + Encounter Details +--------+ + + + + | Date | Type | Department | Care Team | Description | +--------+ + + + + | 11/28/ | Hospital | [facility] | Pramod Enriquez MD | | | 1998 - | Encounter | MED CTR ICU [address] | [address] [facility] [address] | | | | | [place], | [place], [place] | | | 11/29/ | | [place] [address] | 389102 | | | 1998 | | [phone] | | | +--------+ + + + [...]
--- OUTSIDE RECORDS SUMMARY | ~2019-03-03 | XMS | Encounter Summary ---
Demographics + + + | Address | BAD ADDRESS | | | [place] [address] | + + + | Home Phone [...] | Author | [facility] | | | and Byronana | + + + | Organization | [facility] | [...] | | | | | [place] [address] | | + + + + + | Najma Krishnamurthy | ECON | Unknown | | + + + + + | Hector Blankenship | ECON | [address] | | | | | [place] | | | | | [address] | | + + + + + | Najma Sanches | ECON | Unknown | | + + + + + Care Team Providers + +------+ + | Care Corrosion Control Technician Name | Role | Phone | + +------+ + | Tuan Chan MD | PCP | | + +------+ + Encounter Details +--------+ + + + + | Date | Type | Department | Care Team | Description | +--------+ + + + + | 08/21/ | Hospital | [facility] | Raphael Durán, | Seizure (HCC); Acute | | 2019 - | Encounter | [facility] | MD Brionna PRUETT | cystitis without | | | | CARE FLOOR [address] | [address] | hematuria; History | | 08/27/ | | [address] | [address] | of stroke | | 2019 | | [place], [place] | | | | | | [address] | | | | | | [phone] | | | +--------+ + + + [...] Summaries by Noe Bolton MD at 08/27/18 1301 Author: Noe Bolton MD Service: Hospitalist Author Type: Physician Filed: 08/28/18 2241 Date of Service: 08/27/181302 Status: Signed Compensation Intern: Noe Bolton MD (Physician) [facility] Service: Hospitalist Physician Discharge Summary Patient ID: [...] 6 months ago who was transferred from [facility] because of new onset seizures. She had one episode at home described to be generalized tonic-clonic lasting for 5 minutes with postictal state. In the emergency ro om, she had another witnessed 5-minute tonic-clonic movement. She was loaded with Keppra IV and was given Ativan prior to transfer to [facility]. She is here for further neurologic evalu ate. Of note, the patient was also diagnosed to have UTI and was started on ceftriaxone damian or to transfer to [facility]. According to the daughter, patient has not [...] t on 08/25/2018. Patient was admitted to [facility] with diagnosis of new onset of seizures. [...] on 08/27/2018. Patient was trans ferred to [facility] for further rehab therapy. Additional issues: 1. [...] patient with destination the pharmacy being in [place]. 3. Chronic type II odontoid fracture . [...] > RCA COPD (chronic obstructive pulmonary disease) ([facility]) Hydronephrosis of right kidney Hyperlipidemia Hypertension many years Kidney disease NE (myocardial infarction) ([facility]) 09/05/2012 NSTEMI Morbid obesity ([facility]) weighed over 500 lbs prior to bariatric surgery, lost > 300 lbs Recurrent nephrolithiasis S/P CABG x 4 1998 occluded SVG>RCA; patent CASAS>LAD, patent "Y" seq SVG>D1>OM2 (cath 09/10) S/P PTCA (percutaneous transluminal coronary angioplasty) 3.5x16, 2.75x32 Taxus TRAVIS mid-distal LCx (07/16/03) // 2.5x12 Promus Element TRAVIS R PDA, 3.5 x15 Promus Element TRAVIS distal RCA (09/05/12) Stroke ([facility]) 2013 Right-sided, left facial droop - resolved; mild residual memory deficit Type II diabetes mellitus ([facility]) resolved with weight loss following bariatric [...] Name: GERMAINE BARBOUR Date of : 1945 [facility] ng Physician: Miky Alamo ____ INDICATIONS Abnormal [...] TR maxP.27 mmHg TR Vmax: 2.35 m/s Trucker Hand: Authenticated by: Miky Mohrclam gulch Report Date/Time: 08-22-2018 14:3 8:8 1. The [...] 08/22/18 0634 MG 2.0 1.8 1.6* Disposition: [facility] Follow up: Tuan Chan MD [address] [facility] [id number] Schedule an appointment as soon as possible for a visit For hospitalization re-evaluation ; and further management of short-term memory problems am loree others. Tash Herzog MD [address] [place] [address] [place] [address] Schedule an appointment as soon as [...] These medications were sent to [facility] [facility] [place] - [address] [facility] [address] [facility] [address] albuterol 108 (90 Base) MCG/ACT inhaler atorvastatin [...] 08/27/182022 Date of Service: 08/27/181458 Status: Signed Compensation Intern: Lisa Lorenzana RN (Registered Nurse) No significant changes from shift assessment. No falls or new signs of skin breakdown. No c omplaints of pain, nausea or SOB. VSS for remainder of shift. WCM End of shift chart check done. Report called to Munira GARDUNO at [place]. IV removed. Transportation arrived. onver gris Transaction, Provider Unknown - 08/27/2018 2:59 PM PDT Case Management by Maria Del Rosario Dorado RN at 08/27/18 3185 Author: Maria Del Rosario Dorado RN Service: (none) Author Type: Registered Nurse Filed: 08/27/18 1539 Date of Service: 08/27/18 6999 Status: Signed Compensation Intern: Maria Del Rosario Dorado RN (Registered Nurse) Disposition: [facility] Transportation: [place] transport[place]-[facility] All orders, signed AVS, and prescriptions have been faxed: faxed to Ester @ [facility] DC paperwork completed Patient and family in agreement with discharge plan Medicare important message (Given or N/A): given Liz Dorado RN,BSN,CM onver gris Transaction, Provider Unknown - 08/27/2018 10:21 AM PDT Therapy Progress Note by Lalo Epstein PTA at 08/27/18 1021 Author: Lalo Epstein PTA Service: (none) Author Type: Mine Engineering Supervisor Filed: 08/27/18 1139 Date of Service: 08/27/18 1021 Status: Signed Compensation Intern: Lalo Epstein PTA (Mine Engineering Supervisor) PHYSICAL THERAPY TREATMENT NOTE PT Received On: 08/27/18 Reason for Treatment: Other (comment) (Fall) Requires PT Follow Up: Yes Recommendations: Other (comment), AFH (memory care facility) Plan Treatment/Interventions: Continue per Primary PT POC Progress: Progressing toward goals Summary Comments: Pt in room with nursing when DERMATOLOGY SPECIALIST arrives, agreeable to therapy. Therapy focused o n increasing activity tolerance, balance activities, and LE strengthening. When pt had 4WW p laced in front of her, she placed her leg up on the seated and tried to climb on the walker when asked to walk. DERMATOLOGY SPECIALIST attempted to have the pt ambulate with 4WW again and determined that it was safer to attempted to ambulate without an AD. Pt demonstrated good stability while a mbulating with BRACER. While performing balance activities pt required frequent reminders of wh at she was doing as her confusion increased with activity. Pt was able to perform seated exe rcises with no increase in pain. Pt would benefit from continued therapy focusing on increas ing activity tolerance, balance activities and LE strengthening. Pt finished therapy in [facility] with all needs met. Precautions Other Precautions: Fall precautions, cognition Cognition Overall Cognitive Status: Impaired Orientation Level: Oriented, Disoriented FUNCTIONAL MOBILITY Transfers Sit to/from Stand: Standby assist Ambulation Weight Bearing Status: WBAT RLE, WBAT LLE Maximal Ambulation Distance (feet): 150+150 Total Ambulation Distance (feet): 300 Ambulation Assistance: Standby assist Distance limited by?: Therapist/staff discretion Pattern: Alternating, Decreased rosie Assistive Device: Other (Comment) (BRACER) BALANCE High Level Balance Side Stepping: Right, [...] may be from multiple contributors onver gris Transdutch Provider Unknown - 08/26/2018 6:16 PM PDT Nurse Progress Note by Camila Anglin RN at 08/26/18 4221 Author: Camila Anglin RN Service: (none) Author Type: Registered Nurse Filed: 08/26/181815 Date of Service: 08/26/181815 Status: Signed Compensation Intern: Camila Anglin RN (Registered Nurse) Chart audit complete. onver gris Transaction, Provider Unknown - 08/26/2018 4:15 PM PDT Case Management by Maria Del Rosario Dorado RN at 08/26/18 161 Author: Maria Del Rosario Dorado RN Service: (none) Author Type: Registered Nurse Filed: 08/26/18 1616 Date of Service: 08/26/181614 Status: Signed Compensation Intern: Maria Del Rosario Dorado RN (Registered Nurse) CM informed Ester @ [facility] that pt is NMR for discharge today. CM to f/u tomorro w. onver gris Transaction, Provider Unknown - 08/26/2018 11:43 AM PDT Nurse Progress Note by Bear Russell RN at 08/26/18 1143 Author: Bear Russell RN Service: (none) Author Type: Registered Nurse Filed: 08/26/18 1144 Date of Service: 08/26/18 1143 Status: Signed Compensation Intern: Bear Russell RN (Registered Nurse) Report given to SHAAN Jensen who will assume care of this patient. onver gris Transaction, Provider Unknown - 08/26/2018 11:30 AM PDT Pharmacy Note by Jen Vargas RPH at 08/26/18 1130 Author: Jen Vargas RPH Service: Pharmacy Author Type: Pharmacist Filed: 08/26/18 1132 Date of Service: 08/26/18 1130 Status: Signed Compensation Intern: Jen Vargas RPH (Pharmacist) Antimicrobial Stewardship Team [...] ceftriaxone therapy which was sta rted at [facility] for UTI. Unsure if cultures from other facility have finalized at this time and if there was any growth. Infection markers remain normal. Recommend stopping antibi otic therapy as current duration is sufficient for coverage of an uncomplicated UTI. (Stewardship Recommendation Review Status: Pending MD Evaluation) Submitted by: Jen Vargas, EddieD Disclaimer: The recommendations from the Antibiotic Stewardship [...] 08/26/182124 Date of Service: 08/26/18811 Status: Addendum Compensation Intern: Noe Bolton MD (Physician) Related Notes: Original Note by Noe Bolton MD (Physician) filed at 08/26/182124 [facility] Service: Hospitalist Progress Note Pt: Germaine Blankenship AGE/SEX: 72 y.o. female : 1945 ROOM: 4465/4465-1 " Patient Summary: 72-year-old female with history of hypertension, hyperlipidemia, coronar y artery disease a status post CABG x4, history of alcohol abuse, history of drug use, histo ry of nephrolithiasis, history of recent stroke 6 months ago who was transferred from [facility] because of new onset seizures. She had one episode at home described to be generalized tonic-clonic lasting for 5 minutes with postictal state. In the emergency ro om, she had another witnessed 5-minute tonic-clonic movement. She was loaded with Keppra IV and was given Ativan prior to transfer to [facility]. She is here for further neurologic evalu ate. Of note, the patient was also diagnosed to have UTI and was started on ceftriaxone damian or to transfer to [facility]. According to the daughter, patient has not [...] behavior is normal. LABS: Recent Labs Lab 08/26/1862908/22/1863308/21/18632 WBC 5.90 5.78 9.41 HGB 11.1* 11.0* 12.4 HCT 32.8* 32.5* 37.2 PLT 195 198 157 NEUTOPHILPCT -- 54.33 77.05 MONOPCT -- 6.07 5.56 Recent Labs Lab 08/26/1862908/23/1853508/22/18195708/22/1863308/21/18632 NA 147* 145 -- 148* -- 148* [...] Lab 08/26/18629 PHOS 3.7 Recent Labs Lab 08/26/1862908/22/18633 MG 1.8 1.6* Diagnostic: X-ray Ribs Right [...] Signed by: Chey Cruz Dwane Sign Date/Time: 9 10:28 PM X-ray Ribs Bilateral W/ Pa [...] TR maxP.27 mmHg TR Vmax: 2.35 m/s Trucker Hand: Authenticated by: Miky Alamo Report Date/Time: 08-22-2018 [...] > RCA COPD (chronic obstructive pulmonary disease) ([facility]) Hydronephrosis of right kidney Hyperlipidemia Hypertension many years Kidney disease NE (myocardial infarction) ([facility]) 09/05/2012 NSTEMI Morbid obesity ([facility]) weighed over 500 lbs prior to bariatric surgery, lost > 300 lbs Recurrent nephrolithiasis S/P CABG x 4 1998 occluded SVG>RCA; patent CASAS>LAD, patent "Y" seq SVG>D1>OM2 (cath 09/10) S/P PTCA (percutaneous transluminal coronary angioplasty) 3.5x16, 2.75x32 Taxus TRAVIS mid-distal LCx (07/16/03) // 2.5x12 Promus Element TRAVIS R PDA, 3.5 x15 Promus Element TRAVIS distal RCA (09/05/12) Stroke ([facility]) 2013 Right-sided, left facial droop - resolved; mild residual memory deficit Type II diabetes mellitus ([facility]) resolved with weight loss following bariatric [...] PROBLEM LIST Principal Problem: New onset seizure ([facility]) Active Problems: HTN (hypertension) CAD (coronary artery disease) S/P CABG x 4 Hyperlipidemia ASSESSMENT & PLAN 72-year-old female with the followin. New onset seizures. Recurrent episodes of seizure after admission. No further seizure s reported after Keppra has been increased to 750 mg p.o. twice daily as recommended by neur ology outbound sales consultant. -Continue seizure precautions. Follow-up with neurology [...] Case management con sulted for that purpose. Noe Bolton MD 08/26/2018 8:12 AM onversion Transac tion, Provider Unknown - 08/26/2018 6:04 AM PDTFormatting of this note might be different f rom the original. Nurse Progress Note by Brennan Rosa RN at 08/26/18603 Author: Brennan Rosa RN Service: (none) Author Type: Registered Nurse Filed: 08/26/18604 Date of Service: 08/26/18603 Status: Signed Compensation Intern: Brennan Rosa RN (Registered Nurse) Pt remains [...] 08/25/181813 Date of Service: 08/25/181810 Status: Signed Compensation Intern: Bear Russell RN (Registered Nurse) Pt continues [...] Note by Neo Guerrero PT at 08/25/18 1556 Author: Neo Guerrero PT Service: (none) Author Type: Physical Therapist Filed: 08/25/18 1629 Date of Service: 08/25/18 1556 Status: Signed Compensation Intern: Neo Guerrero PT (Physical Therapist) PHYSICAL THERAPY TREATMENT NOTE PT Received On: 08/25/18 Reason for Treatment: Other (comment) (fall) Requires PT Follow Up: Yes Recommendations: Other (comment), [facility]H (memory care facility) Plan Treatment/Interventions: Continue per [...] may be from multiple contributors onver gris Kelly Provider Unknown - 08/25/2018 12:04 PM PDT Case Management by Lakshmi Bradshaw RN at 08/25/18 4985 Author: Lakshmi Bradshaw RN Service: (none) Author Type: Registered Nurse Filed: 08/25/18 1223 Date of Service: 08/25/18 1204 Status: Signed Compensation Intern: Lakshmi Bradshaw RN (Registered Nurse) Spoke with patient, daughter, and son-in-law who state pt will need to discharge to [facility] in [place], referral sent. Requested a cog eval for baseline, suggested if pt's husba nd no longer wants to be involved in her care that a POA for HC and Finances be established and documented through a supervisor public message service. currently has pt's Medicaid card, daughter will [...] Progress Notes by Miky Alamo MD at 08/25/18 0903 Author: Miky Alamo MD Service: Cardiology Author Type: Physician Filed: 08/25/18 1015 Date of Service: 08/25/18902 Status: Signed Compensation Intern: Miky Alamo MD (Physician) [facility] Service: Cardiology Progress Note Name of Customer Management Specialist: Miky Alamo MD I have seen the [...] this interval not displayed. Recent Labs Lab 08/22/1863308/21/1833 WBC 5.78 9.41 HGB 11.0* 12.4 HCT [...] 8:31 AM PDT Progress Notes by Noe Botlon MD at 08/25/18830 Author: Noe Bolton MD Service: Hospitalist Author Type: Physician Filed: 08/25/182100 Date of Service: 08/25/18830 Status: Signed Compensation Intern: Noe Bolton MD (Physician) [facility] Service: Hospitalist Progress Note Pt: Germaine Jesus Jenni Blankenship AGE/SEX: 72 y.o. female : 1945 ROOM: [facility] " Patient Summary: 72-year-old female with history of hypertension, hyperlipidemia, coronar y artery disease a status post CABG x4, history of alcohol abuse, history of drug use, histo ry of nephrolithiasis, history of recent stroke 6 months ago who was transferred from [facility] because of new onset seizures. She had one episode at home described to be generalized tonic-clonic lasting for 5 minutes with postictal state. In the emergency ro om, she had another witnessed 5-minute tonic-clonic movement. She was loaded with Keppra IV and was given Ativan prior to transfer to [facility]. She is here for further neurologic evalu ate. Of note, the patient was also diagnosed to have UTI and was started on ceftriaxone damian or to transfer to [facility]. According to the daughter, patient has not [...] 6.07 5.56 Recent Labs Lab 08/23/18 0536 08/22/18195708/22/18 0634 08/21/18 0633 NA 145 -- 148* [...] Signed by: Chey Cruz Dwane Sign Date/Time: 9 10:28 PM X-ray Ribs Bilateral W/ Pa Chest Result Date: 08/21/2018 This is a non-reportable procedure without a radiologist report and is used for image stora W[facility] only X-ray Hip 2 View Right Result [...] radiologist report and is used for image [facility] only Echo Cardiac Adult Complete Result Date: [...] TR maxP.27 mmHg TR Vmax: 2.35 m/s Trucker Hand: Authenticated by: Miky Alamo Report Date/Time: 08-22-2018 [...] > RCA COPD (chronic obstructive pulmonary disease) ([facility]) Hydronephrosis of right kidney Hyperlipidemia Hypertension many years Kidney disease NE (myocardial infarction) ([facility]) 09/05/2012 NSTEMI Morbid obesity (HCC) weighed over 500 lbs prior to bariatric surgery, lost > 300 lbs Recurrent nephrolithiasis S/P CABG x 4 1998 occluded SVG>RCA; patent CASAS>LAD, patent "Y" seq SVG>D1>OM2 (cath 09/10) S/P PTCA (percutaneous transluminal coronary angioplasty) 3.5x16, 2.75x32 Taxus TRAVIS mid-distal LCx (07/16/03) // 2.5x12 Promus Element TRAVIS R PDA, 3.5 x15 Promus Element TRAVIS distal RCA (09/05/12) Stroke (HCC) 2013 Right-sided, left facial droop - resolved; [...] UTI. Continue ceftriaxone. Review urine cultures from [facility]. 7. Hypokalemia this resolved. 8. Atrial fibrillation [...] Progress Note by Hamida Mccann RN at 08/25/18 014 Author: Hamida Mccann RN Service: (none) Author Type: Registered Nurse Filed: 08/25/18 015 Date of Service: 08/25/18146 Status: Signed Compensation Intern: Hamida Mccann RN (Registered Nurse) Pt. Impulsive, does well distraction coloring and watching movies, sponge bath pt. washed u p while sitting in chair. Chart review completed onver gris Transaction, Provider Unknown - 08/24/2018 5:39 PM PDT Nurse Progress Note by Radhames Armando RN at 08/24/18 4196 Author: Radhames Armando RN Service: (none) Author Type: Registered Nurse Filed: 08/24/18 1743 Date of Service: 08/24/18 614 Status: Signed Compensation Intern: Radhames Armando RN (Registered Nurse) Patient impulsive at times to get up and does not use call light. Chair and bed alarm in p lace. No acute changes noted per shift, seizure precautions continued per policy. End of s hift review complete. Radhames Armando RN Tash Humphreys MD - 08/24/2018 12:09 PM PDT Progress Notes by Tash Herzog MD at 08/24/18 1209 Author: Tash Herzog MD Service: Neurology Author Type: Physician Filed: 08/24/18 0596 Date of Service: 08/24/181208 Status: Signed Compensation Intern: Tash Herzog MD (Physician) [facility] Service: Neurology Progress Note Hospital Day: LOS: [...] ? Patient was initially see n at [facility] [place], reportedly had a grand mal seizure at [...] Service: Cardiology Author Type: Physician Filed: 08/24/18 1103 Date of Service: 08/24/18 1052 Status: Signed Compensation Intern: Miky Alamo MD (Physician) [facility] Service: Cardiology Progress Note Name of Customer Management Specialist: Miky Alamo MD I have seen the [...] 4 mg, 4 mg, Intravenous, Q8H PRN, Raphale Durán MD pantoprazole (PROTONIX) EC tablet 40 [...] Recent Labs Lab 08/23/18 0536 08/22/18195708/22/18 0634 08/21/18 0633 NA 145 -- 148* [...] MD Service: Hospitalist Author Type: Physician Filed: 08/24/18 0917 Date of Service: 08/24/18724 Status: Signed Compensation Intern: Jeremías Diop MD (Physician) [facility] Service: Hospitalist Progress Note Hospital Day: LOS: 3 days SUBJECTIVE Patient Summary: 72-year-old female with history of hypertension, hyperlipidemia, joss nary artery disease a status post CABG x4, history of alcohol abuse, history of drug use, hi story of nephrolithiasis, history of recent stroke 6 months ago who was transferred from [facility] because of new onset seizures. She had one episode at home described to be generalized tonic-clonic lasting for 5 minutes with postictal state. In the emergency room, she had another witnessed 5-minute tonic-clonic movement. She was loaded with Keppra IV and was given Ativan prior to transfer to [facility]. She is here for further neurologic ev aluate. Of note, the patient was also diagnosed to have UTI and was started on ceftriaxone prior to transfer to [facility]. According to the daughter, patient has not been seen by her regular primary care phys ician for the past 1 and half years. Reportedly, she had a stroke 6 months ago and since, h as been having progressive functional decline. [facility] patient eventually declined this. Events Overnight: [...] 6.07 5.56 Recent Labs Lab 08/23/18 0536 08/22/18195708/22/18 0634 08/21/18 0633 NA 145 -- 148* [...] Continue ceftriaxone. Will follow-up urine culture from [facility]. Requests have been sent 08/23/2009. Hypokalemia [...] Disposition: Inpatient. Code Status: DNR/DNI Dictation and mobile application tester or software, Destination[employer], used which may contain error for similar s ounding words even after review. Personal communication requested for any clarification. JEREMÍAS DIOP MD 08/24/2018 7:25 AM onversion Transactio n, Provider Unknown - 08/24/2018 6:55 AM PDT Nurse Progress Note by Aura Boateng RN at 08/24/18 0655 Author: Aura Boateng RN Service: (none) Author Type: Registered Nurse Filed: 08/24/18 0702 Date of Service: 08/24/18 0655 Status: Signed Compensation Intern: Aura Boateng RN (Registered Nurse) Oriented to [...] 08/23/181855 Date of Service: 08/23/181854 Status: Signed Compensation Intern: Talita Brock RN (Registered Nurse) End of shift chart check complete. onver gris Transaction, Provider Unknown - 08/23/2018 6:39 PM PDT Nurse Progress Note by Talita Brock RN at 08/23/181838 Author: Talita Brock RN Service: (none) Author Type: Registered Nurse Filed: 08/23/181843 Date of Service: 08/23/181838 Status: Signed Compensation Intern: Talita Brock RN (Registered Nurse) 1830 Called [...] Progress Notes by Jeremías Diop MD at 08/23/18 0964 Author: Jeremías Diop MD Service: Hospitalist Author Type: Physician Filed: 08/23/18 7635 Date of Service: 08/23/18942 Status: Addendum Compensation Intern: Jeremías Diop MD (Physician) Related Notes: Original Note by Jeremías Diop MD (Physician) filed at 08/23/18 1533 [facility] Service: Hospitalist Progress Note Hospital Day: LOS: 2 days SUBJECTIVE Patient Summary: 72-year-old female with history of hypertension, hyperlipidemia, joss nary artery disease a status post CABG x4, history of alcohol abuse, history of drug use, hi story of nephrolithiasis, history of recent stroke 6 months ago who was transferred from [facility] because of new onset seizures. She had one episode at home described to be generalized tonic-clonic lasting for 5 minutes with postictal state. In the emergency room, she had another witnessed 5-minute tonic-clonic movement. She was loaded with Keppra IV and was given Ativan prior to transfer to [facility]. She is here for further neurologic ev aluate. Of note, the patient was also diagnosed to have UTI and was started on ceftriaxone prior to transfer to [facility]. According to the daughter, patient has not [...] Continue ceftriaxone. Will follow-up urine culture from [facility] Requests have been sent. Hypokalemia Potassium replacement [...] Disposition: Inpatient. Code Status: DNR/DNI Dictation and mobile application tester or software, DestinationRX, used which may contain error for similar s ounding words even after review. Personal communication requested for any clarification. JEREMÍAS DIOP MD 08/23/2018 9:43 AM Miky Escobar MD - 08/23/2018 8:09 AM PDT Progress Notes by Miky Alamo MD at 08/23/18808 Author: Miky Alamo MD Service: Cardiology Author Type: Physician Filed: 08/23/18837 Date of Service: 08/23/18808 Status: Signed Compensation Intern: Miky Alamo MD (Physician) [facility] Service: Cardiology Progress Note Name of Customer Management Specialist: Miky Alamo MD I have seen the [...] mg, 1 mg, Intravenous, Q4H PRN, Raphael uDrán MD metoprolol (TOPROL-XL) 24 hr tablet 25 [...] Last Rat e: 75 mL/hr at 08/22/18 0927 OBJECTIVE Vital Signs: BP 125/71 | Pulse (!) 49 | Temp 97.5 F (36.4 C) (Oral) | Resp 18 | Ht 1.626 m (5' 4 ") | Wt 71.4 kg (157 lb 6.4 oz) | SpO2 97% | ? No | BMI 27.02 kg/m Intake/Output Summary (Last 24 hours) at 08/23/18 0809 Last data filed at 08/22/18 2343 Gross [...] and dry. DATA Recent Labs Lab 08/23/1836 08/22/18195708/22/1863308/21/18632 NA 145 -- 148* -- 148* K 4.0 3.7 3.2* < > 3.2* CO2 29 -- 31 -- 30 BUN 7* -- 6* -- 8 CREATININE 0.7 -- 0.59 -- 0.57 EGFR >60 -- >60 -- >60 MG -- -- 1.6* -- -- < > = values in this interval not displayed. Recent Labs Lab 08/22/1863308/21/18 0633 WBC 5.78 9.41 HGB 11.0* 12.4 [...] Note by Natalie Castillo RN at 08/23/18 0758 Author: Natalie Castillo RN Service: (none) Author Type: Registered Nurse Filed: 08/23/18 08 Date of Service: 08/23/18752 Status: Signed Compensation Intern: Natalie Castillo RN (Registered Nurse) Pt SB of shift until 0612 when pt had an episode of a-fib with RVR, HR 120-140s. Pt convert ed back to SB at 0637 without intervention. Pt A&O x1 during shift. Pt was impulsive with am bulation, bed and tab alarm were required. No electrolytes required during shift, no PRN med s given. End of shift chart review completed. onver gris Transaction, Provider Unknown - 08/22/2018 11:56 AM PDT Progress Notes by Rhonda An RD at 08/22/18 1155 Author: Rhonda An RD Service: (none) Author Type: Registered Dietitian Filed: 08/22/18 115 Date of Service: 08/22/181155 Status: Signed Compensation Intern: Rhonda An RD (Registered Dietitian) 08/22/18 1147 Subjective Timepoint Admit (pressure injury ) Pt [...] (Mouth to Rectum) On modified diet per INSERT CUTTER. Pt denies chewing or swallowi ng issues. [...] Recommendations Recommended energy needs Continue diet per INSERT CUTTER. House trays. Supplements available if nee ded. [...] 1428 Date of Service: 08/22/18901 Status: Signed Compensation Intern: Jeremías Diop MD (Physician) [facility] Service: Hospitalist Progress Note Hospital Day: LOS: 1 day SUBJECTIVE Patient Summary: 72-year-old female with history of hypertension, hyperlipidemia, joss nary artery disease a status post CABG x4, history of alcohol abuse, history of drug use, hi story of nephrolithiasis, history of recent stroke 6 months ago who was transferred from [facility] because of new onset seizures. She had one episode at home described to be generalized tonic-clonic lasting for 5 minutes with postictal state. In the emergency room, she had another witnessed 5-minute tonic-clonic movement. She was loaded with Keppra IV and was given Ativan prior to transfer to [facility]. She is here for further neurologic ev aluate. Of note, the patient was also diagnosed to have UTI and was started on ceftriaxone prior to transfer to [facility]. According to the daughter, patient has not [...] Continue ceftriaxone. Will follow-up urine culture from [facility]. Hypokalemia Potassium replacement protocol ordered. Atrial [...] Disposition: Inpatient. Code Status: DNR/DNI Dictation and mobile application tester or software, DestinationRX, used which may contain error for similar s ounding words even after review. Personal communication requested for any clarification. JEREMÍAS DIOP MD 08/22/2018 9:02 AM onversion Transactio n, Provider Unknown - 08/22/2018 7:03 AM PDT Nurse Progress Note by Natalie Castillo RN at 08/22/18702 Author: Natalie Castillo RN Service: (none) Author Type: Registered Nurse Filed: 08/22/18799 Date of Service: 08/22/18702 Status: Signed Compensation Intern: Natalie Castillo RN (Registered Nurse) Pt's HR [...] NPO until speech eval. End of shift kimi irvin review completed onver gris Transaction, Provider Unknown - 08/21/2018 7:01 PM PDT Nurse Progress Note by Susan Buckner RN at 08/21/181900 Author: Susan Buckner RN Service: (none) Author Type: Registered Nurse Filed: 08/21/181907 Date of Service: 08/21/181900 Status: Signed Compensation Intern: Susan Buckner RN (Registered Nurse) Post fall [...] per protocol. End of shift audit complet e. Susan Buckner RN onver gris Transaction, Provider Unknown - 08/21/2018 3:44 PM PDT Nurse Progress Note by Susan Buckner RN at 08/21/18 3166 Author: Susan Buckner RN Service: (none) Author Type: Registered Nurse Filed: 08/21/18 1606 Date of Service: 08/21/181543 Status: Signed Compensation Intern: Susan Buckner RN (Registered Nurse) Pt found [...] Management by Blanca Calvert RN at 08/21/18 0673 Author: Blanca Calvert RN Service: (none) Author Type: Registered Nurse Filed: 08/21/18 7564 Date of Service: 08/21/18 1150 Status: Signed Compensation Intern: Blanca Calvert RN (Registered Nurse) Met with pt, daughter and daughter's spouse, daughter answered CM's questions, pt was unabl e to participate. Per daughter pt was only released from [facility], ~ 2 mths ago, she was transferred t here from [facility] after having a stroke, she left the Facility AMA. She lives with her (per daughter, he is 15 yrs younger than her, and is living off er social security, does not work) in a trailer that has no running hot water and a non func tional kitchen and poor toilet conditions. She goes to her daughter who lives one mile awar for showers. Pt has a manager case [place]lett [phone], who will be back in office on Friday. She is rec eiving caregiving services, she is not sure the number of hours she is receiving. Caregiver s are from [employer] [employer]. Per daughter because of her poor living conditions, they has recently found her a Group [facility], but pt refused, did not want to leave her . They are now in the process of tr sherly to find a place for a couple. She requires assistance with dressing and showering, does not use DME. She takes Plavix daily. She is not participating in outpatient medical services, no home oxygen, cpap, dialysis or home health. 08/21/18 1147 Discharge Planning Evaluation Admitting Diagnosis New onset [...] Care Services Attendant (Receives caregiving services through [facility], [facility] Caregiver after Discharge No Mental Status Unable to answer questions (Daughter answered CM's questions, pt was sleeping.) Power of Ship Ceiler No Anticipated Discharge Plan Post Acute Care Needs Other (comment) (TBD) Plan communicated to patient/family Yes Resources Financial concerns No Transportation issues No Patient/Family concerns Yes (Daughter and her spouse expressed concern about pt's living conditions.) Prescription Plan Yes Name of Pharmacy [facility] Previous home health equipment No Vascular access device No Ostomy/Drains/Appliances No Anticipated Disposition Facility Type Other (Comment) Pt is a 72 y.o., female Patient's PCP is: Daughter is working on trying to find her a new PCP. Patient's insurance: Medicare/Medicaid [place]. Coverage concerns: None. Medication coverage/concerns: Yes/None. Community resources utilized / needed: [facility]crete [phone]. Assistance in transportation: TBD. Identification of any specific education / training: None. Barriers to Discharge / Alternative housing needed: Anticipated DCP: TBD pending clinical course. BLANCA CALVERT RN,. onver gris Coxaction, Provider Unknown - 08/21/2018 9:46 AM PDT Progress Notes by Silas Gomez RPH at 08/21/18945 Author: Silas Gomez RPH Service: Pharmacy Author Type: Pharmacist Filed: 08/21/18945 Date of Service: 08/21/18945 Status: Signed Compensation Intern: Silas Gomez RPH (Pharmacist) Clinical Pharmacy Note: [...] renal function and adjust accordingly. Silas Gomez [facility] 08/21/2018 9:46 AM Laura Haas Speech Pathologist - 08/21/2018 8:26 AM PDTFormatting of this note might be diff erent from the original. Therapy Progress Note by Laura Cisneros MS CCC-INSERT CUTTER at 08/21/18825 Author: Laura Cisneros MS CCC-INSERT CUTTER Service: (none) Author Type: Speech and Language Pat hologist Filed: 08/21/18826 Date of Service: 08/21/18825 Status: Signed Compensation Intern: Laura Cisneros MS CCC-INSERT CUTTER (Speech and Language Pathologist) 08/21/18799 INSERT CUTTER Last Visit INSERT CUTTER Received On 08/21/18 Requires INSERT CUTTER Follow Up On hold Attempted, but pt is somnolent and not able to wake for RN. RN to call if she becomes alert and appropriate to participate in evaluation. Laura Cisneros MS CCC-INSERT CUTTER 08/21/18 8:27 AM Jeremías Taveras MD - 08/21/2018 8:00 AM PDT Progress Notes by Jeremías Diop MD at 08/21/18799 Author: Jeremías Diop MD Service: Hospitalist Author Type: Physician Filed: 08/21/18 3211 Date of Service: 08/21/18799 Status: Addendum Compensation Intern: Jeremías Diop MD (Physician) Related Notes: Original Note by Jeremías Diop MD (Physician) filed at 08/21/18 9197 [facility] Service: Hospitalist Progress Note Hospital Day: LOS: 0 days SUBJECTIVE Patient Summary: 72-year-old female with history of hypertension, hyperlipidemia, joss nary artery disease a status post CABG x4, history of nephrolithiasis, history of recent str arsen 6 months ago who was transferred from [facility] because of new onset seiz ures. She had one episode at home described to be generalized tonic-clonic lasting for 5 mi nutes with postictal state. In the emergency room, she had another witnessed 5-minute tonic -clonic movement. She was loaded with Keppra IV and was given Ativan prior to transfer to [facility]. She is here for further neurologic evaluate. Of note, the patient was also diagnose d to have UTI and was started on ceftriaxone prior to transfer to [facility]. According to the daughter, patient has not been seen by her regular primary care phys icishawna for the past 1 and half years. Reportedly, she had a stroke 6 months ago and since, h as been having progressive functional decline. She was supposed to go to a long-term care [facility] but patient eventually declined this. Events Overnight: [...] Continue ceftriaxone. Will follow-up urine culture from [facility]. DVT prophylaxis: In place. GI prophylaxis: In place. Disposition: Inpatient. Code Status: Full Code Dictation and mobile application tester or software, DestinationRX, used which may contain error for similar [...] + + + | RED CELL | 3.38 (L) | 3.70 - 5.10 | EXTERNAL | | | COUNT | | M/uL | LAB | | + + + + + + | Hgb | 10.3 (L) | 11.3 - 15.5 [...] EXTERNAL | | | | performed at [facility], [address] | | LAB | | | | [address], | | | | | | [place] [address] | | | | + + + [...] EXTERNAL | | | | performed at [facility], [address] | | LAB | | | | [address], | | | | | | [place] [address] | | | | + + + [...] EXTERNAL | | | | performed at [facility], [address] | | LAB | | | | [address], | | | | | | [place] [address] | | | | + + + [...] | | | | | performed at [facility], [address] | | | | | | [facility], | | | | | | [place] [address] | | | | + + + [...] EXTERNAL | | | | performed at [facility];[address] | mmol/L | LAB | | | | [address];[place], [place] | | | | | | [address] | | | | + + + [...] + + + | RED CELL | 3.65 (L) | 3.70 - 5.10 | EXTERNAL | | | COUNT | | M/uL | LAB | | + + + + + + | Hgb | 11.1 (L) | 11.3 - 15.5 [...] EXTERNAL | | | | performed at [facility];[address] | | LAB | | | | [address];[place] | | | | | | [address] | | | | + + + [...] EXTERNAL | | | | performed at [facility];[address] | | LAB | | | | [address];[place], [place] | | | | | | [address] | | | | + + + [...] EXTERNAL | | | | performed at [facility];[address] | | LAB | | | | [address];[place], [place] | | | | | | [address] | | | | + + + [...] | | | | | performed at [facility];[address] | | | | | | [facility];[place], [place] | | | | | | [address] | | | | + + + [...] | | | | | | MDRD IDVT traceable | | | | | | equation.Testing | | | | | | performed at [facility], [address] | | | | | | [facility], | | | | | | [place] [address] | | | | + + + [...] EXTERNAL | | | | performed at [facility];[address] | mmol/L | LAB | | | | [address];[place], [place] | | | | | | [address] | | | | + + + [...] TR maxP.27 mmHg TR Vmax: 2.35 m/s Trucker Hand: | | | Authenticated by: Miky Mohrclam gulch Report Date/Time: 08-22-2018 | | | 14:38:8 | | + + + + + | Procedure Note | + + | Javier Gay Conversion - 11/10/2018 7:55 PM PDT Patient Name: JENNI BLANKENSHIP, | | SALLYDate of : 1945 Performing Physician: Miky | | [facility] INDICATIONS------ | | -----Abnormal EKG CONCLUSIONS 1. [...] mlLAESV Index (A-L): 66.54 ml/m2LAAs A2C: 29.59 [id number] A-L A2C: 105.11 | | mlLALs A2C: 7.07 cmLAAs A4C: 32.97 pz1BYJEY A-L A4C: 119.49 mlLALs A4C: 7.72 | | cmTAPSE: 1.59 cmHR: 48.54 BPMAV maxP.21 mmHgAV meanP.37 mmHgAV Vmax: | | 1.24 m/Brenton Vmean: 0.86 m/Brenton VTI: 33.73 cmAVA Vmax: 1.92 cm2AVA (VTI): 1.95 | | xd2KJUI Vmax: 0.00 cm2/m2AVAI (VTI): 0.00 cm2/m2LVCI Dopp: 1.81 l/pdad9JHUA Dopp: | | 3.19 l/minHR: 48.32 BPMLVOT [...] | | 22.27 mmHgTR Vmax: 2.35 m/s Trucker Hand: Edinsonticated by: Miky Gill | | Date/Time: 08-22-2018 [...] |TR Vmax: 2.35 m/s | | | |Trucker Hand: | |Authenticated by: Miky Alamo | |Report Date/Time: 08-22-2018 14:38:8 | | | |IMPRESSION: | |1. The left ventricle is normal in size, mild concentric hypertrophy and normal systolic fu nction EF 55-60%. | |2. The right ventricle is normal in size and function. | |3. Mild tricuspid regurgitation and no pulmonary hypertension. | |4. There is no pericardial effusion. | + + External Lab: [facility] (08/22/2018 6:34 AM PDT) + + + [...] + + + | RED CELL | 3.71 | 3.70 - 5.10 | EXTERNAL | | | COUNT | | M/uL | LAB | | + + + + + + | Hgb | 11.0 (L) | 11.3 - 15.5 [...] | | | Basophils | performed at [facility];[address] | K/uL | LAB | | | | [address];[place] | | | | | | [address] | | | | + + + [...] EXTERNAL | | | | performed at [facility];[address] | | LAB | | | | [address];[place], [place] | | | | | | [address] | | | | + + + [...] EXTERNAL | | | | performed at [facility];[address] | | LAB | | | | [address];[place] | | | | | | [address] | | | | + + + [...] | | | | | performed at [facility];[address] | | | | | | [address];[place], [place] | | | | | | [address] | | | | + + + [...] Javier Gay - 11/10/2018 7:55 PM PDT RIGHT [...] Gay Conversion - 11/10/2018 7:55 PM PDT RIGHT [...] | spondylosis, most advanced at C5-6.Signed by: Chey Dorantes, [facility] Date/Time: | | 08/21/2018 5:52 PM | [...] EXTERNAL | | | | performed at [facility];[address] | mmol/L | LAB | | | | [address] [facility];[place], [place] | | | | | | [address] | | | | + + + [...] + + + | RED CELL | 4.21 | 3.70 - 5.10 | EXTERNAL | | | COUNT | | M/uL | LAB | | + + + + + + | Hgb | 12.4 | 11.3 - 15.5 | [...] | | | Estimate | performed at [facility];[address] | | LAB | | | | [address];[place], [place] | | | | | | [address] | | | | + + + [...] EXTERNAL | | | | performed at [facility];[address] | mmol/L | LAB | | | | [address];[place] | | | | | | [address] | | | | + + + [...] | | | | | performed at [facility];[address] | | | | | | [address];[place], [place] | | | | | | [address] | | | | + + + [...]
--- OUTSIDE RECORDS SUMMARY | ~2019-03-03 | XMS | Encounter Summary ---
Demographics + + + | Address | BAD ADDRESS | | | [place] [address] | + + + | Home Phone [...] Author | [facility] | | | and [place] | + + + | Organization | [facility] | | | and [place] | + + + | Address | Unknown | + + + | Phone | Unavailable | + + + Support + + + + + | Name | Relationship | Address | Phone | + + + + + | Hector Mack | ECON | [address] | | | | | [place] [address] | | + + + + + | Najma Krishnaumrthy | ECON | Unknown | | + + + + + | Hector Mack | ECON | [address] | | | | | [place] | | | | | [address] | | + + + + + | Najma Sanches | ECON | Unknown | | + + + + + Care Team Providers + +------+ + | Care Dental Technician Apprentice Name | Role | Phone | + +------+ + PCP | Unavailable | + +------+ + Encounter Details +--------+ + + + + | Date | Type | Department | Care Team | Description | +--------+ + + + + | 07/15/ | Hospital | [facility] | Rina Diaz MD | | | 2003 - | Encounter | [facility] | [address] | | | | | INTENSIVE CARE UNIT | [place] [address] | | | 07/16/ | | [address] | [phone] | | | 2003 | | [place], [place] | | | | | | [address] | | | | | | [phone] | | | +--------+ + + + [...]
--- OUTSIDE RECORDS SUMMARY | ~2019-03-03 | XMS | Encounter Summary ---
Demographics + + + | Address | BAD ADDRESS | | | [place] [address] | + + + | Home Phone [...] + + | Author | [facility] | | | and [place] | + + + | Organization | [facility] | [...] | | | | | [place] [address] | | + + + + + | Najma Krishnamurthy | ECON | Unknown | | + + + + + | Hector Mack | ECON | [address] | | | | | [place] | | | | | [address] | | + + + + + | Najma Sanches | ECON | Unknown | | + + + + + Care Team Providers + +------+ + | Care Inside Contractor Sales Name | Role | Phone | + +------+ + | Tuan Chan MD | PCP | | + +------+ + Encounter Details +--------+ + + + + | Date | Type | Department | Care Team | Description | +--------+ + + + + | 06/10/ | Hospital | [facility] | Leandra Chávez, | Unstable angina | | 2016 - | Encounter | MED CTR ICU [address] | [address] | ([facility]) (Primary Dx); | | | | [address] [place], | [place], [place] | Non-cardiac chest | | 06/11/ | | [place] [address] | [address] | pain | | 2015 | | [phone] | | | +--------+ + + + [...] radiation. 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 [id number] [employer]. [address] [place], [place] [address]. All righ ts reserved. This information is [...] PROVIDER: | | | Tuan Chan MD SCRUB WHEEL OPERATOR: Dr. Leandra Chávez MD, | | | [facility] PRE-PROCEDURE DIAGNOSIS: Unstable Angina | | | [...] multiple views | | | using 6 Maltese JL5 and 5 F AL1 and an JESUS diagnostic catheters. | | | A 5 uzbek pigtail catheter was advanced into the left [...] RECOMMENDATIONS Continue medical Rx Leandra Chávez MD, [facility], | | | [facility] DATE/TIME: 06/12/2015 0:27 | | | 06/12/2015 0:27 Portions of this chart were created with [employer] | | | voice recognition software. Occasional [...] + | [facility] | [address] | [place], [place] | [phone] | | [facility] | | [address] | | | - LABORATORY | | [...] | | | | ERWIN MORALES MD ([id number]) | | | | | | on [...] + | [facility] | [address] | [place], [place] | [phone] | | [facility] | | [address] | | | - LABORATORY | | [...] ST. | [address] | [place], [place] | [phone] | | [facility] | | [address] | | | - LABORATORY | | [...] | | | | | mg/dL | [facility] | | | | | | MEDICAL | | | | | | CENTER - | | | | | | LABORATORY | | + + + + + + | eGFR if not | >60Comment: GLOMERULAR | >=60 | [facility] | | | | FILTRATION | mL/min/1.73m2 | [facility] | | | JORDANIAN | RATE,ESTIMATED | | MEDICAL | | | | mL/min/1.71b6Sdgg than | | CENTER - | | [...] | | | | | mg/dL | [facility] | | | | | [...] ST. | [address] | [place], [place] | [phone] | | [facility] | | [address] | | | - LABORATORY | | [...] [address] | [place] | [phone] | | [facility] | | [address] | | | - LABORATORY | | [...] | | | | | | [employer] | | | | | [...] + | [facility] | [address] | [place] | [phone] | | [facility] | | [address] | | | - LABORATORY | | [...] + | [facility] | [address] | [place], [place] | [phone] | | [facility] | | [address] | | | - LABORATORY | | [...]
--- OUTSIDE RECORDS SUMMARY | ~2019-03-03 | XMS | Encounter Summary ---
Demographics + + + | Address | [address] | | | [place] [address] | + + + | Home Phone [...] [place] | | | | | [address] | | + + + + + Care Team Providers + +------+ + | Care Tap Out Operator Name | Role | Phone | [...] | | | | | Procedures | [facility] | [facility] | | | | | Consult | 2010 | for Health | | | | | | [place], | and Healing, | | | | | | [place] [address] | [address], | | | | | | Phone: | 16th Floor | | | | | | [phone] | [place], [place] | | | | | | Fax: | [address] | | | | | | [phone] | Phone: | | | | | | | [phone] | | | | | | | Fax: | | | | | | | [phone] | +--------+--------+ + + + + Encounter Details +--------+---------+ + + + | Date | Type | Department | Care Team | Description | +--------+---------+ + + + | 08/05/ | Office | Dermatology | Khoa Manuel, | Rash and Other | | 2008 | Visit | Medical at [facility] | ,PhD Castro | Nonspecific Skin | | | | Floor [address] | Allergy Asthma | Eruption (Primary | | | | Ave Mailcode: [address]D | Dermatology [address] | Dx) | | | | [facility] | [facility] | | | | | and Healing, | [place] [address] | | | | | [facility] | [phone] | | | | | Floor [place], [place] | | | | | | [address] | | | | | | [phone] | | | +--------+---------+ + + + [...] plan of care. Khoa Manuel MD, PhD Make Up Man, Department of Dermatology [facility] 08/05/2008 Genoveva Galeano Md - 08/05/2008 [...] skin culture done by Dr. Chan in [facility] prior to her gastric by pass surgery [...] the day. She has never seen a meter installer. The patient's dermatology intake form was reviewed, signed, and dated. Her relevant PMH, F H, and SH includes: PAST MEDICAL HISTORY: --Gastric bypass in 02/[address] Johnson, used to weigh 450 pounds --s/p abdominoplasty in 06/06 --s/p CABG in [address] [facility] --s/p cholecystectomy 35 years ago --s/p appy [...] Olsen M.D. Resident, Department of Dermatology [facility] [place] documented in th is encounter Plan of Treatment + + +--------+ + + | Name | Type | Priori | Associated Diagnoses | Order Schedule | | | | ty | | | + + +--------+ + + | NC BIOPSY OF SKIN | Procedures | Routin [...]
--- OUTSIDE RECORDS SUMMARY | ~2019-03-03 | XMS | Encounter Summary ---
Demographics + + + | Address | BAD ADDRESS | | | [place] [address] | + + + | Home Phone [...] Author | [facility] | | | and Byornana | + + + | Organization | [facility] | | | and [...] | | | | | [place] [address] | | + + + + + | Najma Krishnamurthy | ECON | Unknown | | + + + + + | Hector Mack | ECON | [address] | | | | | [place] | | | | | [address] | | + + + + + | Najma Sanches | ECON | Unknown | | + + + + + Care Team Providers + +------+ + | Care Prospecting Driller Name | Role | Phone | + +------+ + PCP | Unavailable | + +------+ + Encounter Details +--------+ + + + + | Date | Type | Department | Care Team | Description | +--------+ + + + + | 07/23/ | [facility] | [facility] | Duarte Moon MD | | | 2012 | Encounter | [facility] | [address] | | | | | [facility] | [facility], [place] | | | | | [facility], | [address] | | | | | [place] [address] | | | | | | [phone] | | | +--------+ + + + [...]
--- OUTSIDE RECORDS SUMMARY | ~2019-03-03 | XMS | Encounter Summary ---
Demographics + + + | Address | [address] | | | [place] [address] | + + + | Home Phone [...] [place] | | | | | [address] | | + + + + + Care Team Providers + +------+ + | Care Animal Keeper Head Name | Role | Phone | + [...] 2007 | Registratio | [address] | [address] | | | | n | Eugenio Mailcode: [id number] | [place], [place] | | | | | [place], [place] | [address] | | | | | [address] | [phone] | | | | | [phone] | | | +--------+ + + + [...]
--- OUTSIDE RECORDS SUMMARY | ~2019-03-03 | XMS | Encounter Summary ---
Demographics + + + | Address | [address] | | | [place] [address] | + + + | Home Phone [...] [place] | | | | | [address] | | + + + + + Care Team Providers + +------+ + | Care Commodities Broker Name | Role | Phone | + +------+ + | Tuan Chan MD | PCP | | + +------+ + Encounter Details +--------+ + + + + | Date | Type | Department | Care Team | Description | +--------+ + + + + | 03/11/ | Results | Urology Fertility | Rneato Chow MD | | | 2010 | Only | [address] | [address] | | | | | Mailcode: CH10U | [place], [place] | | | | | [facility] | [address] | | | | | and Healing, | [phone] | | | | | | | | | | | Floor [place], [place] | | | | | | [address] | | | | | | [phone] | | | +--------+ + + + [...] | + + + + + | [facility] | [address] | [place] [address] | | | PATHOLOGY | [address] | | | + + + + + documented in this encounter Visit Diagnoses Not on filedocumented in this encounter"
--- OUTSIDE RECORDS SUMMARY | ~2019-03-03 | XMS | Encounter Summary ---
Demographics + + + | Address | [address] | | | [place] [address] | + + + | Home Phone [...] [place] | | | | | [address] | | + + + + + Care Team Providers + +------+ + | Care Technical Systems Architect Name | Role | Phone | [...] Pranay | | | | | | [address] | [address] | | | | | | [place] | [address] | | | | | | [address] | [place], [place] | | | | | | [place] | [address] | | | | | | [address] | | | | | | | Phone: | | | | | | | [phone] | | | | | | | Fax: | | | | | | | [phone] | | +--------+--------+ + + + + Encounter Details +--------+---------+ + + + | Date | Type | Department | Care Team | Description | +--------+---------+ + + + | 11/20/ | Office | Cardiology - | Pranay Melendez MD | Dysmetabolic | | 2005 | Visit | General [address] [facility] | | Syndrome X; CAD | | | | [address] | | (Coronary Artery | | | | Mailcode: [id number] | | Disease); Sleep | | | | [facility] | | Apnea; Gout; DM Circ | | | | [address] [place], | | Dis Type II, | | | | [place] [address] | | Uncontrolled ([facility]); | | | | [phone] | | Dyslipidemia | +--------+---------+ + + [...] Melendez - 11/21/2005 9:02 AM [facility] is a morbidly obese woman with [...] risk will be manageable. 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 I did not have access to her lipid values recejose ramos and have ordered another set for later this week.Electronically signed by Pranay orjas 11/21/2005 9:07 AM PDTdocumented in this encounter [...] DEPARTMENT OF | [address] | [place] [address] | | | PATHOLOGY | [address] | | | + + + + + | [facility] | [address] | [place] [address] | | | PATHOLOGY | [address] | | | + + + + + documented in this encounter Visit Diagnoses + + | Diagnosis | + + | Dysmetabolic syndrome X Dysmetabolic Syndrome X | + + | CAD (coronary artery disease) Coronary atherosclerosis of unspecified type of vessel, | | [place] or graft | + + | Sleep [...]
--- OUTSIDE RECORDS SUMMARY | ~2019-03-03 | XMS | Encounter Summary ---
Demographics + + + | Address | BAD ADDRESS | | | [place] [address] | + + + | Home Phone [...] | [facility] | | | and Byronana | + + + | Organization | [facility] | [...] | | | | | [place] [address] | | + + + + + | Najma Krishnamurthy | ECON | Unknown | | + + + + + | Hector Mack | ECON | [address] | | | | | [place] | | | | | [address] | | + + + + + | Najma Sanches | ECON | Unknown | | + + + + + Care Team Providers + +------+ + | Care Director Educational Radio Name | Role | Phone | + +------+ + PCP | Unavailable | + +------+ + Encounter Details +--------+ + + + + | Date | Type | Department | Care Team | Description | +--------+ + + + + | 07/15/ | Hospital | [facility] | Rina Diaz MD | | | 2003 - | Encounter | [facility] | [address] | | | | | INTENSIVE CARE UNIT | [place] [address] | | | 07/16/ | | [address] | [phone] | | | 2003 | | [place], [place] | | | | | | [address] | | | | | | [phone] | | | +--------+ + + + [...]
--- OUTSIDE RECORDS SUMMARY | ~2019-03-03 | XMS | Encounter Summary ---
Demographics + + + | Address | [address] [address] | | | [place] [address] | + + + | Home Phone [...] [place] | | | | | [address] | | + + + + + Care Team Providers + +------+ + | Care Rand Maker Name | Role | Phone | [...] 2008 | Visit | Medical at [facility] | [place] | (Primary Dx); | | | | Floor [address] | [address] [place], | Encounter for | | | | Ave Mailcode: CH16D | [place] [address] | Long-Term (Current) | | | | [facility] | [phone] | Use of Other | | | | and Healing, | | Medications | | | | Building | | | | | | Floor [place], [place] | | | | | | [address] | | | | | | [phone] | | | +--------+---------+ + + + [...] in 06/06 --s/p CABG in 2000 in [facility] --s/p cholecystectomy 35 years ago --s/p [...] month Julia Buckley PA-C Department of Dermatology [facility] documented in this encounter Plan of Treatment Not on filedocumented as of this encounter Visit Diagnoses + + | Diagnosis | + + | 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
--- OUTSIDE RECORDS SUMMARY | ~2019-03-03 | XMS | Encounter Summary ---
Demographics + + + | Address | [address] | | | [place] [address] | + + + | Home Phone [...] [place] | | | | | [address] | | + + + + + Care Team Providers + +------+ + | Care Professional Fighter Name | Role | Phone | + [...] | 2008 | Visit | Medical at [facility] | [place] | (Primary Dx) | | | | Floor [address] | [address] [place], | | | | | Ave Mailcode: CH16D | [place] [address] | | | | | 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
--- OUTSIDE RECORDS SUMMARY | ~2019-03-03 | XMS | Encounter Summary ---
Demographics + + + | Address | [address] | | | [place] [address] | + + + | Home Phone [...] [place] | | | | | [address] | | + + + + + Care Team Providers + +------+ + | Care Manager Facility Name | Role | Phone | [...] | | | | Mailcode: CH10U | [place], [place] | | | | | [facility] | [address] | | | | | and Healing, | [phone] | | | | | | | | | | | Floor [place], [place] | | | | | | [address] | | | | | | [phone] | | | +--------+---------+ + + + [...] documented in this encounter Progress Notes Noe Hdze MD - 09/07/2008 2:25 PM PDTFormatting of [...] [facility] | [address] | [place], [place] | | | [place] [facility] | [address] | [address] | | | TESTS | | | | + + + + + | [facility] | [address] | [place], [place] | | | TESTS | [address] | [address] | | + + + + + documented in this encounter Visit Diagnoses + + | Diagnosis | + + | Urolithiasis - Primary Urinary calculus, unspecified | + + documented in this encounter"
--- OUTSIDE RECORDS SUMMARY | ~2019-03-03 | XMS | Encounter Summary ---
Demographics + + + | Address | [address] | | | [place] [address] | + + + | Home Phone [...] [place] | | | | | [address] | | + + + + + Care Team Providers + +------+ + | Care [place] Actor Name | Role | Phone | + [...] as of this encounter Progress Notes Interface, Dog Raiser In - 05/24/2005 2:07 AM [facility] [id number] 05/23/2005 05/23/2005 [id number] ARETHA RAE [place] [address] [place] [address] or May 23, 2005 Bryan Garza M.D. [address] [place] [address] RE: GERMAINE CARIAS MR #: [id number] Dear Dr. Garza: I saw your patient, Mrs. Germaine Carias in my office on , May 23, 2005. I went over her records and those of Dr. Walker in [place]. This pleasant, obese, 59-year-old female has a [...] junction. Dilation was performed up to a 20-Niuean Microvasive balloon, and the patient claims that [...] is unemployed. She smoked, has about a 48-ucsn-uqwz smoking history but has not smoked in [...] Sincerely, Wes Wolff M.D. Ren / PASCUAL [id number] / [id number] / [id number] / cc: Lalo Walker M.D. [facility] [address] [place] [address] documented i n this encounter Plan of Treatment Not on filedocumented as of this encounter Visit Diagnoses Not on filedocumented in this encounter"
--- OUTSIDE RECORDS SUMMARY | ~2019-03-03 | XMS | Encounter Summary ---
Demographics + + + | Address | [address] | | | [place] [address] | + + + | Home Phone [...] [place] | | | | | [address] | | + + + + + Care Team Providers + +------+ + | Care Medical Practice Administrator Name | Role | Phone | [...] Procedure Note | + + | Interface, Customer Service Specialist In - 02/05/2006 12:00 AM PST | | [id number] | | [id number] ANTONIETTAMACK GERMAINE [id number] | | | | Date: 02/05/2006 | | | | Attending Surgeon: Papi Johnson M.D. | | | | Embedded Software Manager(s): Darrel Dunn M.D. | | | | [...] | | DS / HS | | [id number] / [id number] / [id number] / [id number] | | | | | | | | | | | | Reviewed or Edited By Darrel Dunn MD on 05-29-2006 | | Electronically signed by Papi Johnson 05-29-2006 11:17:53 AM | | | | | + + + + | Transcriptions | + + | Interface, Customer Service Specialist In - 02/20/2006 2:34 AM PST | | [id number] | | [id number] ARETHA HERRON [id number] | | | | Date: 02/05/2006 | | | | Attending Surgeon: Herberth Ayala M.D. | | | | Embedded Software Manager(s): Darrel Dunn M.D. | | | | [...] serial firings of an Endo | | EDLER blue load stapler. This pouch was created [...] | | | RWO / | | [id number] / [id number] / [id number] / [id number] | | | | | | | | | | | | Electronically signed by Herberth Brambila 02-19-2006 11:24:19 AM | + + documented in this encounter Visit Diagnoses Not on filedocumented in this encounter"
--- OUTSIDE RECORDS SUMMARY | ~2019-03-03 | XMS | Encounter Summary ---
Demographics + + + | Address | BAD ADDRESS | | | [place] [address] | + + + | Home Phone [...] Author | [facility] | | | and Byronana | + + + | Organization | [facility] | | | and [place] | + + + | Address | Unknown | + + + | Phone | Unavailable | + + + Support + + + + + | Name | Relationship | Address | Phone | + + + + + | Hector Mack | ECON | [address] | | | | | [place] [address] | | + + + + + | Najma Krishnamurthy | ECON | Unknown | | + + + + + | Hector Mack | ECON | [address] | | | | | [place] | | | | | [address] | | + + + + + | Najma Sanches | ECON | Unknown | | + + + + + Care Team Providers + +------+ + | Care Slime Plant Operator Helper Name | Role | Phone | + +------+ + PCP | Unavailable | + +------+ + Encounter Details +--------+ + + + + | Date | Type | Department | Care Team | Description | +--------+ + + + + | 03/03/ | Hospital | [facility] | [place], | | | 2000 | Encounter | MED CTR XRAY [address] | [address] [place] [address] | | | | | [place] | [place] | | | | | [place] [address] | [address] | | | | | [phone] | | | +--------+ + + + [...]
--- OUTSIDE RECORDS SUMMARY | ~2019-03-03 | XMS | Encounter Summary ---
Demographics + + + | Address | BAD ADDRESS | | | [place] [address] | + + + | Home Phone [...] | Author | [facility] | | | and [place]ana | + + + | Organization | [facility] [...] | | | | | [place] [address] | | + + + + + | Najma Krishnamurthy | ECON | Unknown | | + + + + + | Hector Mack | ECON | [address] | | | | | [place] | | | | | [address] | | + + + + + | Najma Sanches | ECON | Unknown | | + + + + + Care Team Providers + +------+ + | Care Salesperson Handbags Name | Role | Phone | + +------+ + PCP | Unavailable | + +------+ + Encounter Details +--------+ + + + + | Date | Type | Department | Care Team | Description | +--------+ + + + + | 04/24/ | Hospital | [facility] | Conversion | Pain | | 2013 | Encounter | CONVERSION DEP [address] | Transaction, | | | | | [address] | Provider Unknown | | | | | [place], [place] | [phone] | | | | | [address] | | | | | | [phone] | | | +--------+ + + + [...]
--- OUTSIDE RECORDS SUMMARY | ~2019-03-03 | XMS | Encounter Summary ---
Demographics + + + | Address | BAD ADDRESS | | | [place] [address] | + + + | Home Phone | | + + + | Preferred Language | Unknown | + + + | Marital Status | | + + + | Nondenominational Affiliation | 1077 | + + + | Race | Unknown | + + + | Ethnic Group | Unknown | + + + Author + + + | Author | [facility] | | | and Byron[place] | + + + | Organization | [facility] | [...] | | | | | [place] [address] | | + + + + + | Najma Krishnamurthy | ECON | Unknown | | + + + + + | Hector Mack | ECON | [address] | | | | | [place] | | | | | [address] | | + + + + + | Najma Sanches | ECON | Unknown | | + + + + + Care Team Providers + +------+ + | Care Geophysical Laboratory Supervisor Name | Role | Phone | + +------+ + PCP | Unavailable | + +------+ + Encounter Details +--------+ + + + + | Date | Type | Department | Care Team | Description | +--------+ + + + + | 12/11/ | Hospital | [facility] | | | | 1997 - | Encounter | MED CTR GENERIC OP | | | | | | CONV DEPT [address] | | | | 01/24/ | | [place], | | | | 1997 | | [place] [address] | | | | | | [phone] | | | +--------+ + + + [...]
--- OUTSIDE RECORDS SUMMARY | ~2019-03-03 | XMS | Encounter Summary ---
Demographics + + + | Address | BAD ADDRESS | | | [place] [address] | + + + | Home Phone [...] Author | [facility] | | | and [place] | + + + | Organization | [facility] | | | and [...] | | | | | [place] [address] | | + + + + + | Najma Krishnamurthy | ECON | Unknown | | + + + + + | Hector Mack | ECON | [address] | | | | | [place] | | | | | [address] | | + + + + + | Najma Sanches | ECON | Unknown | | + + + + + Care Team Providers + +------+ + | Care Truck Hop Name | Role | Phone | + +------+ + PCP | Unavailable | + +------+ + Encounter Details +--------+ + + + + | Date | Type | Department | Care Team | Description | +--------+ + + + + | 07/03/ | Hospital | [facility] | | | | 1999 | Encounter | MED CTR EMERGENCY | | | | | | CENTER [address] | | | | | | [place] | | | | | | [address] | | | | | | [phone] | | | +--------+ + + + [...]
--- OUTSIDE RECORDS SUMMARY | ~2019-03-03 | XMS | Encounter Summary ---
Demographics + + + | Address | [address] | | | [place] [address] | + + + | Home Phone [...] [place] | | | | | [address] | | + + + + + Care Team Providers + +------+ + | Care Director Of Sales Marketing Name | Role | Phone | [...] | MD [address] | ([place] ) | | | | Mailcode: CH10U | [place], [place] | | | | | [facility] | [address] | | | | | and Healing, | [phone] | | | | | [facility] | | | | | | Floor [place], [place] | | | | | | [address] | | | | | | [phone] | | | +--------+--------+ + + + [...]
--- OUTSIDE RECORDS SUMMARY | ~2019-03-03 | XMS | Encounter Summary ---
Demographics + + + | Address | BAD ADDRESS | | | [place] [address] | + + + | Home Phone [...] Author | [facility] | | | and [place] | + + + | Organization | [facility] | | | and [place] | + + + | Address | Unknown | + + + | Phone | Unavailable | + + + Support + + + + + | Name | Relationship | Address | Phone | + + + + + | Hector Mack | ECON | [address] | | | | | [place] [address] | | + + + + + | Najma Krishnamurthy | ECON | Unknown | | + + + + + | Hector Mack | ECON | [address] | | | | | [place] | | | | | [address] | | + + + + + | Najma Sanches | ECON | Unknown | | + + + + + Care Team Providers + +------+ + | Care Sanitation Worker Cleaning Machinery Name | Role | Phone | + +------+ + PCP | Unavailable | + +------+ + Encounter Details +--------+ + + + + | Date | Type | Department | Care Team | Description | +--------+ + + + + | 09/04/ | Hospital | [facility] | Mathew Sofia | Chest pain; NSTEMI | | 2012 - | Encounter | [facility] | MD Judy [address] | (non-ST elevated | | | | CARE FLOOR [address] | myocardial | | 09/06/ | | [address] | [place] [address] | infarction) (HCC); | | 2012 | | [place], [place] | [phone] | CAD (coronary artery | | | | [address] | | disease); HTN | | | | [phone] | | (hypertension) | +--------+ + + [...] Summaries by Augustine Trejo MD at 09/06/12 1197 Author: Augustine Trejo MD Service: (none) Author Type: Physician Filed: 09/07/12 1709 Date of Service: 09/06/12 4872 Status: Signed Mortgage Sales Manager: Augustine Trejo MD (Physician) [facility] Service: Hospitalist Discharge Summary Date of Admission: [...] AM UTI + afebrile 1. Non-ST elevation MS evident - cont ASA and plavix and statin 2. Hypertension. luis a olvera don metoprolol and lasix 3. Ex alcoholic. [...] Kidney disease COPD (chronic obstructive pulmonary disease) MS (myocardial infarction) Past Surgical History Procedure Date [...] Follow up: Tuan Chan MD 2010 06 [facility] [address] Schedule an appointment as soon as possible for a visit DO [address], [address] [place] [address] Schedule an appointment as soon as possible [...] Progress Notes by Francesco Reyna RN at 09/06/121712 Author: Francesco Reyna RN Service: (none) Author Type: Registered Nurse Filed: 09/06/12 1714 Date of Service: 09/06/121712 Status: Signed Mortgage Sales Manager: Francesco Reyna RN (Registered Nurse) Pt discharged home. Stable. Scripts given. Verbal and written discharge instructions given. Pt states no pain at time of discharge. FRANCESCO REYNA RN Augustine Cintron MD - 09/05/2012 2:21 PM PDT Progress Notes by Augustine Trejo MD at 09/05/12 142 Author: Augustine Trejo MD Service: (none) Author Type: Physician Filed: 09/05/12 1502 Date of Service: 09/05/121420 Status: Signed Mortgage Sales Manager: Augustine Trejo MD (Physician) [facility] Service: Hospitalist Progress Note Hospital Day: [...] disease) ASSESSMENT & PLAN 1. Non-ST elevation MS evident - Dr. Naqvi on consult and [...] 09/05/12902 Date of Service: 09/05/12902 Status: Signed Mortgage Sales Manager: Deedee Cisneros RPH (Pharmacist) Renal Dosing Monitoring: Germaine Ye 66 y.o. female Pharmacy dosing for renal function per Dr. Sofia Medication(s): Plan per protocol: Medication / Dose: unable to calculate CrCl without labs Will follow-up Pharmacy will continue monitoring patient for appropriate dosing per renal function. 09/05/2012 8:56 AM Pharmacist: DEEDEE CISNEROS docume nted in this encounter Plan of [...] | Testing performed at | | | [facility] [place] [facility];[place] [address] CULTURE | | | >100,000 CFU/ML MIXED GRAM NEGATIVE KRISTEN | | | NO FURTHER WORKUP | | | Testing performed at [facility], | | | [address] [place] [address] REPORT STATUS | | | 09/07/2012 FINAL [...] | | with 2.25 x 12 mm Trezevant balloon followed by stenting with 2.5 x 12 | | | mm Promus Element drug eluting stent. 6. Percutaneous | | | transluminal coronary angioplasty of the distal right coronary | | | artery with 3 x 12 mm Trezevant balloon followed by stenting with 3.5 | [...] femoral artery and a | | | 6-Italian arterial sheath was placed. A 6-Italian JL4 catheter was then | | | advanced under fluoroscopic guidance and engaged with the ostium of | | | the left main coronary artery, and multiple projections of the left | | | coronary systems were obtained with the use of contrast injections. | | | The catheter was then exchanged to a 6-Italian JR4 catheter, which was | | | advanced under fluoroscopic guidance and engaged with the ostium of | | | the right coronary artery, and multiple projections of the right | | | coronary artery were obtained with the use of contrast injections. | | | The catheter was then exchanged to a 6-Italian pigtail catheter which | | | was [...] 3 x 12 | | | mm Trezevant balloon at the site of the distal [...] with | | 2.25 x 12 mm Trezevant balloon followed by stenting with 2.5 x 12 mm Promus | | Element drug eluting stent. | | 6. Percutaneous transluminal coronary angioplasty of the distal right | | coronary artery with 3 x 12 mm Trezevant balloon followed by stenting with | | [...] obtained via right femoral artery and a 6-Italian arterial sheath was | | placed. A 6-Italian JL4 catheter was then advanced under fluoroscopic | | guidance and engaged with the ostium of the left main coronary artery, and | | multiple projections of the left coronary systems were obtained with the | | use of contrast injections. The catheter was then exchanged to a 6-Italian | | JR4 catheter, which was advanced under fluoroscopic guidance and engaged | | with the ostium of the right coronary artery, and multiple projections of | | the right coronary artery were obtained with the use of contrast | | injections. The catheter was then exchanged to a 6-Italian pigtail catheter | | which was advanced [...] then done with 3 x 12 mm Trezevant balloon | | at the site of [...] | | with 2.25 x 12 mm Trezevant balloon followed by stenting with 2.5 x 12 | | | mm Promus Element drug eluting stent. 6. Percutaneous | | | transluminal coronary angioplasty of the distal right coronary | | | artery with 3 x 12 mm Trezevant balloon followed by stenting with 3.5 | [...] femoral artery and a | | | 6-Italian arterial sheath was placed. A 6-Italian JL4 catheter was then | | | advanced under fluoroscopic guidance and engaged with the ostium of | | | the left main coronary artery, and multiple projections of the left | | | coronary systems were obtained with the use of contrast injections. | | | The catheter was then exchanged to a 6-Italian JR4 catheter, which was | | | advanced under fluoroscopic guidance and engaged with the ostium of | | | the right coronary artery, and multiple projections of the right | | | coronary artery were obtained with the use of contrast injections. | | | The catheter was then exchanged to a 6-Italian pigtail catheter which | | | was [...] 3 x 12 | | | mm Trezevant balloon at the site of the distal [...] with | | 2.25 x 12 mm Trezevant balloon followed by stenting with 2.5 x 12 mm Promus | | Element drug eluting stent. | | 6. Percutaneous transluminal coronary angioplasty of the distal right | | coronary artery with 3 x 12 mm Trezevant balloon followed by stenting with | | [...] obtained via right femoral artery and a 6-Italian arterial sheath was | | placed. A 6-Italian JL4 catheter was then advanced under fluoroscopic | | guidance and engaged with the ostium of the left main coronary artery, and | | multiple projections of the left coronary systems were obtained with the | | use of contrast injections. The catheter was then exchanged to a 6-Italian | | JR4 catheter, which was advanced under fluoroscopic guidance and engaged | | with the ostium of the right coronary artery, and multiple projections of | | the right coronary artery were obtained with the use of contrast | | injections. The catheter was then exchanged to a 6-Italian pigtail catheter | | which was advanced [...] then done with 3 x 12 mm Trezevant balloon | | at the site of [...] of unspecified type of vessel, | | [place] or graft | + + | HTN (hypertension) Unspecified essential hypertension | + + documented in this encounter
--- OUTSIDE RECORDS SUMMARY | ~2019-03-03 | XMS | Encounter Summary ---
Demographics + + + | Address | [address] | | | [place] [address] | + + + | Home Phone [...] + + + | Author | [facility] | + + + | Organization | [facility] | + + + | Address [...] Team Providers + +------+ + | Care Gluing Machine Operator Name | Role | Phone [...] Hernia of | Aysha Crow | s [address] | | | | | unspecified | [address] | [address] | | | | | site of | [address] | Mary Becker | | | | | abdominal | [place], [place] | Mailcode: | | | | | cavity | [address] | [address] [facility] | | | | | without | | Hospital | | | | | mention of | | [place], [place] | | | | | obstruction | | [address] | | | | | or gangrene | | Phone: | | | | | Procedures | | [phone] | | | | | CT ABDOMEN | | Fax: | | | | | WWO CONTRAST | | [phone] | | | | | LTD | | | +--------+--------+ + + + + Encounter Details +--------+ + + + + | Date | Type | Department | Care Team | Description | +--------+ + + + + | 08/05/ | Hospital | Radiology/Imaging | | | | 2008 | Encounter | Lab at [facility] [address] | | | | | [address] Mailcode: | | | | | | [facility] [place] [facility] | | | | | | [facility] He[facility], | | | | | | Building [address], [facility] | | | | | | Floor [place], [place] | | | | | | [address] | | | | | | [phone] | | | +--------+ + + + [...]
--- OUTSIDE RECORDS SUMMARY | ~2019-03-03 | XMS | Encounter Summary ---
Demographics + + + | Address | BAD ADDRESS | | | [place] [address] | + + + | Home Phone [...] | Author | [facility] | | | and [place] | + + + | Organization | [facility] | | | and [place] | + + + | Address | Unknown | + + + | Phone | Unavailable | + + + Support + + + + + | Name | Relationship | Address | Phone | + + + + + | Hector Mack | ECON | [address] | | | | | [place] [address] | | + + + + + | Najma Krishnamurthy | ECON | Unknown | | + + + + + | Hector Mack | ECON | [address] | | | | | [place] | | | | | [address] | | + + + + + | Najma Sanches | ECON | Unknown | | + + + + + Care Team Providers + +------+ + | Care Formulation Chemist Name | Role | Phone | + +------+ + PCP | Unavailable | + +------+ + Encounter Details +--------+ + + + + | Date | Type | Department | Care Team | Description | +--------+ + + + + | 12/11/ | Hospital | [facility] | | | | 1997 - | Encounter | MED CTR GENERIC OP | | | | | | CONV DEPT [address] | | | | 01/24/ | | [place], | | | | 1997 | | [place] [address] | | | | | | [phone] | | | +--------+ + + + [...]
--- OUTSIDE RECORDS SUMMARY | ~2019-03-03 | XMS | Encounter Summary ---
Demographics + + + | Address | [address] [place] [address] | | | [place] [address] | + + + | Home Phone [...] [place] | | | | | [address] | | + + + + + Care Team Providers + +------+ + | Care Software Tester Name | Role | Phone [...] | | | | Mailcode: CH10U | [place], [place] | | | | | [facility] | [address] | | | | | and Healing, | [phone] | | | | | [facility] | | | | | | Floor [place], [place] | | | | | | [address] | | | | | | [phone] | | | +--------+---------+ + + + [...] Resident Division of Urology and Renal Transplantation [facility] oe Hdez - 10/19/2007 1:51 PM [...] Lab) | | | | | | [facility] | | | | | | [address] | | | | | [address] | | | | | | [place], [place] | | | | | | [id number]: Test | | | | | | performed at [facility] | | | | | | [facility] | | | | | | Laboratory. | | | | + + + + + + + + | Specimen | + + | Urine - Urine | + + + + + + + | Performing | Address | City/State/Zipcode | Phone Number | | Organization | | | | + + + + + | [facility] | [address] | [place] [address] | | | LAB-MICRO | | | [...] BRITTNEY | [address] | [place], [place] | | | [facility] POINT OF CARE | [address] | [address] | | | TESTS | | | | + + + + + | [facility] | [address] | [place], [place] | | | TESTS | [address] | [address] | | + + + + + documented in this encounter Visit Diagnoses + + | Diagnosis | + + | Urolithiasis - Primary Urinary calculus, unspecified | + + documented in this encounter"
--- OUTSIDE RECORDS SUMMARY | ~2019-03-03 | XMS | Encounter Summary ---
Demographics + + + | Address | [address] | | | [place] [address] | + + + | Home Phone [...] [place] | | | | | [address] | | + + + + + Care Team Providers + +------+ + | Care Needle Loom Weaver Name | Role | Phone | + [...] Colon | | | | | at [facility] | [facility] | | | | | [address] [facility] [address] [facility] [address] | [place] [address] | | | | | [facility] | | | | | | Mailcode: OP12B Isaiah | | | | | | [facility] | | | | | | [place], | | | | | | [place] [address] | | | | | | [phone] | | | +--------+ + + + [...] view image for the detailed interpretation from [employer] results. | CARDIOLOGY | + + + + + + + + | Performing | Address | City/State/Zipcode | Phone Number | | Organization | | | | + + + + + | [facility] | [address] | [place], [place] | | | CARDIOLOGY | [facility] | [address] | | + + + + + documented in this encounter Visit Diagnoses Not on filedocumented in this encounter"
--- OUTSIDE RECORDS SUMMARY | ~2019-03-03 | XMS | Encounter Summary ---
Demographics + + + | Address | BAD ADDRESS | | | [place] [address] | + + + | Home Phone | | + + + | Preferred Language | Unknown | + + + | Marital Status | | + + + | Samaritan Affiliation | 1077 | + + + | Race | Unknown | + + + | Ethnic Group | Unknown | + + + Author + + + | Author | [facility] | | | and [place] | + + + | Organization | [facility] | | | and [...] | | | | | [place] [address] | | + + + + + | Najma Krishnamurthy | ECON | Unknown | | + + + + + | Hector Mack | ECON | [address] | | | | | [place] | | | | | [address] | | + + + + + | Najma Sanches | ECON | Unknown | | + + + + + Care Team Providers + +------+ + | Care Shipping And Receiving Supervisor Name | Role | Phone | + +------+ + PCP | Unavailable | + +------+ + Encounter Details +--------+ + + + + | Date | Type | Department | Care Team | Description | +--------+ + + + + | 05/17/ | Hospital | [facility] | | | | 1993 | Encounter | MED CTR EMERGENCY | | | | | | CENTER [address] | | | | | | [place] | | | | | | [address] | | | | | | [phone] | | | +--------+ + + + [...]
--- OUTSIDE RECORDS SUMMARY | ~2019-03-03 | XMS | Clinical Summary ---
Demographics + + + | Address | [address] | | | [place] [address] | + + + | Home Phone [...] + + | Author | [facility] (Historical as of | | | 11-14-18) | + + + | Organization | [facility] (Historical as of | | | 11-14-18) [...] [place] | | | | | [address] | | + + + + + | Najma Sanches | ECON | Unknown | | + + + + + Care Team Providers + +------+ + | Care Ore Sampler Name | Role | Phone | + [...] | 04/27/2014 | + + + | PR (myocardial infarction) | 09/05/2012 | + + [...] +------+-------+ + | MEDICARE | MEDICA | [id number] | | | [address] | | | RE | | | | [place] [address] | | | IP-OP | | | | | + +--------+ +------+-------+ + | MEDICAID | EASTER | [id number] | | | [address] | | | N | | | | [place] | | | [place] | | | | [address] | | | MANDREL PULLER | | | | | + +--------+ [...] | 1946 | [phone] [place] [address] | | | demetrius | | | [address] | | + +--------+ +--------+ + +
--- OUTSIDE RECORDS SUMMARY | ~2019-03-03 | XMS | Encounter Summary ---
Demographics + + + | Address | [address] | | | [place] [address] | + + + | Home Phone [...] [place] | | | | | [address] | | + + + + + Care Team Providers + +------+ + | Care Tawer Name | Role | Phone | + [...] | | | | | Stay [address] [facility] | | | | | | [address] | | | | | | Mailcode: UHN65 | | | | | | [place] | | | | | | [address] [place], [place] | | | | | | [address] | | | | | | [phone] | | | +--------+ + + + [...]
--- OUTSIDE RECORDS SUMMARY | ~2019-03-03 | XMS | Encounter Summary ---
Demographics + + + | Address | [address] [place] [address] | | | [place] [address] | + + + | Home Phone [...] [place] | | | | | [address] | | + + + + + Care Team Providers + +------+ + | Care Merchandise Manager Name | Role | Phone | [...] 2007 | Registratio | [address] | [address] | | | | n | [place] Mailcode: RPB07 | [place], [place] | | | | | [place], [place] | [address] | | | | | [address] | [phone] | | | | | [phone] | | | +--------+ + + + [...]
--- OUTSIDE RECORDS SUMMARY | ~2019-03-03 | XMS | Encounter Summary ---
Demographics + + + | Address | [address] | | | [place] [address] | + + + | Home Phone [...] [place] | | | | | [address] | | + + + + + Care Team Providers + +------+ + | Care Signal Integrity Engineer Name | Role | Phone | [...] Procedure Note | + + | Interface, Healthcare Manager In - 02/05/2006 12:00 AM PST | | [id number] | | [id number] [place] GERMAINE [id number] | | | | Date: 02/05/2006 | | | | Attending Surgeon: Papi Johnson M.D. | | | | Track Leader(s): Darerl Dunn M.D. | | | | | [...] | | DS / HS | | [id number] / [id number] / [id number] / [id number] | | | | | | | | | | | | Reviewed or Edited By Darrel Dunn MD on 05-29-2006 | | Electronically signed by Papi Johnson 05-29-2006 11:17:53 AM | | | | | + + + + | Transcriptions | + + | Interface, Healthcare Manager In - 02/20/2006 2:34 AM PST | | [id number] | | [id number] [place]A HERRON [id number] | | | | Date: 02/05/2006 | | | | Attending Surgeon: Herberth Ayala M.D. | | | | Track Leader(s): Darrel Dunn M.D. | | | | [...] | | | RWO / | | [id number] / [id number] / [id number] / [id number] | | | | | | | | | | | | Electronically signed by Herberth Brambila 02-19-2006 11:24:19 AM | + + documented in this encounter Visit Diagnoses Not on filedocumented in this encounter"
--- OUTSIDE RECORDS SUMMARY | ~2019-03-03 | XMS | Encounter Summary ---
Demographics + + + | Address | [address] | | | [place] [address] | + + + | Home Phone [...] [place] | | | | | [address] | | + + + + + Care Team Providers + +------+ + | Care Clerical Aide Teacher Name | Role | Phone | [...] Dx) | | 2006 | Visit | [place] [address] | | | | | | [place] Mailcode: CH4S | | | | | | [facility] | | | | | | and Healing, | | | | | | [address] | | | | | | Floor [place], [place] | | | | | | [address] | | | | | | [phone] | | | +--------+---------+ + + + [...] Performed At | + + + | [id number] Estimated GFR = 60 mL/min/1.73 sq m if non- | [facility] | | [id number] Estimated GFR > 60 mL/min/1.73 sq m [...] [facility] DEPARTMENT OF | [address] | [place] [address] | | | PATHOLOGY | [address] | | | + + + + + | [facility] DEPARTMENT OF | [address] | [place] [address] | | | PATHOLOGY | [address] [...] + + + + + | [facility] | [address] [facility] | [place] [address] | | | PATHOLOGY | [address] | | | + + + + + | [facility] | [address] | [place] [address] | | | PATHOLOGY | [address] | | | + + + + + documented in this encounter Visit Diagnoses + + | Diagnosis | + + | Obesity - Primary Obesity, unspecified | + + documented in this encounter
--- OUTSIDE RECORDS SUMMARY | ~2019-03-03 | XMS | Encounter Summary ---
Demographics + + + | Address | BAD ADDRESS | | | [place] [address] | + + + | Home Phone [...] | [facility] | | | and [place] | + + + | Organization | [facility] | | | [...] | | | | | [place] [address] | | + + + + + | Najma Krishnamurthy | ECON | Unknown | | + + + + + | Hector Mack | ECON | [address] | | | | | [place] | | | | | [address] | | + + + + + | Najma Sanches | ECON | Unknown | | + + + + + Care Team Providers + +------+ + | Care Retail Pos Specialist Name | Role | Phone | + +------+ + PCP | Unavailable | + +------+ + Encounter Details +--------+ + + + + | Date | Type | Department | Care Team | Description | +--------+ + + + + | 11/10/ | Hospital | [facility] | Oralia Quinonez | | | 2011 | Encounter | HOSPITAL EMERGENCY | [address] | | | | | [address] | [place], | | | | | [employer], [place] | [place] [address] | | | | | [address] | [phone] | | | | | [phone] | | | +--------+ + + + [...]
--- OUTSIDE RECORDS SUMMARY | ~2019-03-03 | XMS | Encounter Summary ---
Demographics + + + | Address | BAD ADDRESS | | | [place] [address] | + + + | Home Phone [...] | Author | [facility] | | | and [place] | + + + | Organization | [facility] | | | [...] | | | | | [place] [address] | | + + + + + | Najma Krishnamurthy | ECON | Unknown | | + + + + + | Hector Mack | ECON | [address] | | | | | [place] | | | | | [address] | | + + + + + | Najma Sanches | ECON | Unknown | | + + + + + Care Team Providers + +------+ + | Care Hose Stripper Name | Role | Phone | + +------+ + PCP | Unavailable | + +------+ + Encounter Details +--------+ + + + + | Date | Type | Department | Care Team | Description | +--------+ + + + + | 05/15/ | Hospital | [facility] | | | | 2000 - | Encounter | MED CTR GENERIC OP | | | | | | CONV DEPT [address] | | | | 06/20/ | | [place], | | | | 2000 | | [place] [address] | | | | | | [phone] | | | +--------+ + + + [...]
--- OUTSIDE RECORDS SUMMARY | ~2019-03-03 | XMS | Encounter Summary ---
Demographics + + + | Address | BAD ADDRESS | | | [place] [address] | + + + | Home Phone | | + + + | Preferred Language | Unknown | + + + | Marital Status | | + + + | Druze Affiliation | 1077 | + + + | Race | Unknown | + + + | Ethnic Group | Unknown | + + + Author + + + | Author | [facility] | | | and [place] | + + + | Organization | [facility] | | [...] | | | | | [place] [address] | | + + + + + | Najma Krishnamurthy | ECON | Unknown | | + + + + + | Hector Mack | ECON | [address] | | | | | [place] | | | | | [address] | | + + + + + | Najma Sanches | ECON | Unknown | | + + + + + Care Team Providers + +------+ + | Care Apigee Developer Name | Role | Phone | + +------+ + PCP | Unavailable | + +------+ + Encounter Details +--------+ + + + + | Date | Type | Department | Care Team | Description | +--------+ + + + + | 07/18/ | Hospital | [facility] | | | | 1996 - | Encounter | MED CTR MED ONC | | | | | | [address] | | | | 07/23/ | | [place] [address] | | | | 1996 | | [phone] | | | +--------+ + + + [...]
--- OUTSIDE RECORDS SUMMARY | ~2019-03-03 | XMS | Encounter Summary ---
Demographics + + + | Address | BAD ADDRESS | | | [place] [address] | + + + | Home Phone | | + + + | Preferred Language | Unknown | + + + | Marital Status | | + + + | Samaritan Affiliation | 1077 | + + + | Race | Unknown | + + + | Ethnic Group | Unknown | + + + Author + + + | Author | [facility] | | | and [place] | + + + | Organization | [facility] | [...] | | | | | [place] [address] | | + + + + + | Najma Krishnamurthy | ECON | Unknown | | + + + + + | Hector Mack | ECON | [address] | | | | | [place] | | | | | [address] | | + + + + + | Najma Sanches | ECON | Unknown | | + + + + + Care Team Providers + +------+ + | Care Vice President Quality Assurance Name | Role | Phone | + +------+ + PCP | Unavailable | + +------+ + Encounter Details +--------+ + + + + | Date | Type | Department | Care Team | Description | +--------+ + + + + | 08/06/ | Hospital | [facility] | Tuan Chan, | LUMBOSACRAL NEURITIS | | 2004 | Encounter | CONVERSION DEP [address] | MD 2010 | NOS | | | | [address] | [facility], [place] | | | | | [place], [place] | [address] | | | | | [address] | [phone] | | | | | [phone] | | | +--------+ + + + [...]
--- OUTSIDE RECORDS SUMMARY | ~2019-03-03 | XMS | Encounter Summary ---
Demographics + + + | Address | BAD ADDRESS | | | [place] [address] | + + + | Home Phone [...] | Author | [facility] | | | and [place] | + + + | Organization | [facility] | | | and [place] | + + + | Address | Unknown | + + + | Phone | Unavailable | + + + Support + + + + + | Name | Relationship | Address | Phone | + + + + + | Hector Mack | ECON | [address] | | | | | [place] [address] | | + + + + + | Najma Krishnamurthy | ECON | Unknown | | + + + + + | Hector Mack | ECON | [address] | | | | | [place] | | | | | [address] | | + + + + + | Najma Sanches | ECON | Unknown | | + + + + + Care Team Providers + +------+ + | Care Assembler Dc Field Yoke Name | Role | Phone | + [...] | | | | | | [place] [address] | | | | | | [phone] | | | +--------+ + + + [...]
--- OUTSIDE RECORDS SUMMARY | ~2019-03-03 | XMS | Encounter Summary ---
Demographics + + + | Address | BAD ADDRESS | | | [place] [address] | + + + | Home Phone [...] | Author | [facility] | | | and [place] | + + + | Organization | [facility] | | | and [...] | | | | | [place] [address] | | + + + + + | Najma Krishnamurthy | ECON | Unknown | | + + + + + | Hector Mack | ECON | [address] | | | | | [place] | | | | | [address] | | + + + + + | Najma Sanches | ECON | Unknown | | + + + + + Care Team Providers + +------+ + | Care At&T Retailer Sales Consultant Name | Role | Phone | + +------+ + PCP | Unavailable | + +------+ + Encounter Details +--------+ + + + + | Date | Type | Department | Care Team | Description | +--------+ + + + + | 12/26/ | Hospital | [facility] | | | | 1991 | Encounter | MED CTR LABORATORY | | | | | | [address] | | | | | | [place] | | | | | | [address] | | | | | | [phone] | | | +--------+ + + + [...]
--- OUTSIDE RECORDS SUMMARY | ~2019-03-03 | XMS | Encounter Summary ---
Demographics + + + | Address | BAD ADDRESS | | | [place] [address] | + + + | Home Phone [...] + + | Author | [facility] | | | and [place] | + + + | Organization | [facility] | [...] | | | | | [place] [address] | | + + + + + | Najma Krishnamurthy | ECON | Unknown | | + + + + + | Hector Mack | ECON | [address] | | | | | [place] | | | | | [address] | | + + + + + | Najma Sanches | ECON | Unknown | | + + + + + Care Team Providers + +------+ + | Care Bottom Hoop Driver Name | Role | Phone | + +------+ + PCP | Unavailable | + +------+ + Encounter Details +--------+ + + + + | Date | Type | Department | Care Team | Description | +--------+ + + + + | 07/10/ | Hospital | [facility] | | | | 1996 | Encounter | MED CTR EMERGENCY | | | | | | CENTER [address] | | | | | | [place] | | | | | | [address] | | | | | | [phone] | | | +--------+ + + + [...]
--- OUTSIDE RECORDS SUMMARY | ~2019-03-03 | XMS | Encounter Summary ---
Demographics + + + | Address | BAD ADDRESS | | | [place] [address] | + + + | Home Phone [...] + | Author | [facility] | | | and [place] | + + + | Organization | [facility] | | | and [place] | + + + | Address | Unknown | + + + | Phone | Unavailable | + + + Support + + + + + | Name | Relationship | Address | Phone | + + + + + | Hector Mack | ECON | [address] | | | | | [place] [address] | | + + + + + | Najma Krishnamurthy | ECON | Unknown | | + + + + + | Hector Mack | ECON | [address] | | | | | [place] | | | | | [address] | | + + + + + | Najma Sanches | ECON | Unknown | | + + + + + Care Team Providers + +------+ + | Care Farm Mechanic Name | Role | Phone | + +------+ + PCP | Unavailable | + +------+ + Encounter Details +--------+ + + + + | Date | Type | Department | Care Team | Description | +--------+ + + + + | 04/24/ | Hospital | [facility] | Conversion | Pain | | 2013 | Encounter | CONVERSION DEP [address] | Transaction, | | | | | [place] | Provider Unknown | | | | | [place], [place] | [phone] | | | | | [address] | | | | | | [phone] | | | +--------+ + + + [...]
--- OUTSIDE RECORDS SUMMARY | ~2019-03-03 | XMS | Encounter Summary ---
Demographics + + + | Address | [address] | | | [place] [address] | + + + | Home Phone [...] [place] | | | | | [address] | | + + + + + Care Team Providers + +------+ + | Care Wood Dowel Machine Operator Name | Role | Phone [...]
--- OUTSIDE RECORDS SUMMARY | ~2019-03-03 | XMS | Encounter Summary ---
Demographics + + + | Address | BAD ADDRESS | | | [place] [address] | + + + | Home Phone [...] + | Author | [facility] | | | and [place] | + + + | Organization | [facility] | | | and [...] | | | | | [place] [address] | | + + + + + | Najma Krishnamurthy | ECON | Unknown | | + + + + + | Hector Mack | ECON | [address] | | | | | [place] | | | | | [address] | | + + + + + | Najma Sanches | ECON | Unknown | | + + + + + Care Team Providers + +------+ + | Care Bindery Machine Feeder Offbearer Name | Role | Phone | + +------+ + PCP | Unavailable | + +------+ + Encounter Details +--------+ + + + + | Date | Type | Department | Care Team | Description | +--------+ + + + + | 04/14/ | Hospital | [facility] | Trevor Keating | | | 2000 - | Encounter | HEART MED CTR | Jesús Oseguera J Jesus | | | | | CARDIAC TRANSPLANT | [address] | | | 04/21/ | | [address] | [place] | | | 2000 | | [place] | [address] | | | | | [address] | [phone] | | | | | [phone] | | | | | | | [...]
--- OUTSIDE RECORDS SUMMARY | ~2019-03-03 | XMS | Encounter Summary ---
Demographics + + + | Address | BAD ADDRESS | | | [place] [address] | + + + | Home Phone [...] | Author | [facility] | | | and [place] | + + + | Organization | [facility] [...] | | | | | [place] [address] | | + + + + + | Najma Krishnamurthy | ECON | Unknown | | + + + + + | Hector Mack | ECON | [address] | | | | | [place] | | | | | [address] | | + + + + + | Najma Sanches | ECON | Unknown | | + + + + + Care Team Providers + +------+ + | Care Contracts Officer Name | Role | Phone | + +------+ + PCP | Unavailable | + +------+ + Encounter Details +--------+ + + + + | Date | Type | Department | Care Team | Description | +--------+ + + + + | 05/04/ | Hospital | [facility] | | | | 1996 - | Encounter | MED CTR OP REHAB | | | | | | [address] | | | | 08/19/ | | [place] [address] | | | | 1996 | | [phone] | | | +--------+ + + + [...]
--- OUTSIDE RECORDS SUMMARY | ~2019-03-03 | XMS | Encounter Summary ---
Demographics + + + | Address | BAD ADDRESS | | | [place] [address] | + + + | Home Phone [...] | Author | [facility] | | | and [place] | + + + | Organization | [facility] | | | [...] | | | | | [place] [address] | | + + + + + | Najma Krishnamurthy | ECON | Unknown | | + + + + + | Hector Mack | ECON | [address] | | | | | [place] | | | | | [address] | | + + + + + | Najma Sanches | ECON | Unknown | | + + + + + Care Team Providers + +------+ + | Care Prosthetic Aides Teacher Name | Role | Phone | + +------+ + PCP | Unavailable | + +------+ + Encounter Details +--------+ + + + + | Date | Type | Department | Care Team | Description | +--------+ + + + + | 07/07/ | Hospital | [facility] | Isaias Ramirez, | | | 1996 | Encounter | MED CTR XRAY [address] | MD [address] [facility] [address] | | | | | [place] | [address] | | | | | [place] [address] | [address] | | | | | [phone] | | | +--------+ + + + [...]
--- OUTSIDE RECORDS SUMMARY | ~2019-03-03 | XMS | Encounter Summary ---
Demographics + + + | Address | [address] | | | [place] [address] | + + + | Home Phone [...] [place] | | | | | [address] | | + + + + + Care Team Providers + +------+ + | Care Solution Engineer Name | Role | Phone | [...] | | | | | | [place] [address] | | | +--------+--------+ + + + [...]
--- OUTSIDE RECORDS SUMMARY | ~2019-03-03 | XMS | Encounter Summary ---
Demographics + + + | Address | [address] | | | [place] [address] | + + + | Home Phone [...] [place] | | | | | [address] | | + + + + + Care Team Providers + +------+ + | Care Elastic Attacher Zigzag Name | Role | Phone | + [...] | | | | Mailcode: CH10U | [place], [place] | | | | | [facility] | [address] | | | | | and Healing, | [phone] | | | | | | | | | | | Floor [place], [place] | | | | | | [address] | | | | | | [phone] | | | +--------+---------+ + + + [...] P[facility]AS | [address] | [place], [place] | | | [facility] | [address] | [address] | | | TESTS | | | | + + + + + | [facility] | [address] | [place], [place] | | | TESTS | [address] | [address] | | + + + + + documented in this encounter Visit Diagnoses + + | Diagnosis | + + | Urolithiasis - Primary Urinary calculus, unspecified | + + documented in this encounter"
--- OUTSIDE RECORDS SUMMARY | ~2019-03-03 | XMS | Encounter Summary ---
Demographics + + + | Address | BAD ADDRESS | | | [place] [address] | + + + | Home Phone [...] | Author | [facility] | | | and [place] | + + + | Organization | [facility] | | | and [place] | + + + | Address | Unknown | + + + | Phone | Unavailable | + + + Support + + + + + | Name | Relationship | Address | Phone | + + + + + | Hector Mack | ECON | [address] | | | | | [place] [address] | | + + + + + | Najma Krishnamurthy | ECON | Unknown | | + + + + + | Hector Mack | ECON | [address] | | | | | [place] | | | | | [address] | | + + + + + | Najma Sanches | ECON | Unknown | | + + + + + Care Team Providers + +------+ + | Care Manager Search Engine Name | Role | Phone | + +------+ + PCP | Unavailable | + +------+ + Encounter Details +--------+ + + + + | Date | Type | Department | Care Team | Description | +--------+ + + + + | 05/11/ | Hospital | [facility] | Kike Constantino | | | 1996 | Encounter | MED CTR SLEEP | MD Aura [address] [place] [address] | | | | | [address] [place] | [facility] | | | | | [place], [place] | [place] [address] | | | | | [address] | [phone] | | | | | [phone] | | | +--------+ + + + [...]
--- OUTSIDE RECORDS SUMMARY | ~2019-03-03 | XMS | Encounter Summary ---
Demographics + + + | Address | [address] | | | [place] [address] | + + + | Home Phone [...] [place] | | | | | [address] | | + + + + + Care Team Providers + +------+ + | Care Range Aide Name | Role | Phone | [...] | | | | Mailcode: CH10U | [place], [place] | | | | | [facility] | [address] | | | | | and Healing, | [phone] | | | | | Building | | | | | | Floor [place], [place] | | | | | | [address] | | | | | | [phone] | | | +--------+ + + + [...]
--- OUTSIDE RECORDS SUMMARY | ~2019-03-03 | XMS | Encounter Summary ---
Demographics + + + | Address | BAD ADDRESS | | | [place] [address] | + + + | Home Phone [...] + | Author | [facility] | | | and [place] | + + + | Organization | [facility] | [...] | | | | | [place] [address] | | + + + + + | Najma Krishnamurthy | ECON | Unknown | | + + + + + | Hector Mack | ECON | [address] | | | | | [place] | | | | | [address] | | + + + + + | Najma Sanches | ECON | Unknown | | + + + + + Care Team Providers + +------+ + | Care Jd Edwards Name | Role | Phone | + +------+ + PCP | Unavailable | + +------+ + Encounter Details +--------+ + + + + | Date | Type | Department | Care Team | Description | +--------+ + + + + | 04/05/ | Hospital | [facility] | | | | 1996 - | Encounter | MED CTR MED ONC | | | | | | [address] | | | | 04/09/ | | [place] [address] | | | | 1996 | | [phone] | | | +--------+ + + + [...]
--- OUTSIDE RECORDS SUMMARY | ~2019-03-03 | XMS | Encounter Summary ---
Demographics + + + | Address | BAD ADDRESS | | | [place] [address] | + + + | Home Phone [...] + + | Author | [facility] | | | and [place] | + + + | Organization | [facility] | | | and [...] | | | | | [place] [address] | | + + + + + | Najma Krishnamurthy | ECON | Unknown | | + + + + + | Hector Mack | ECON | [address] | | | | | [place] | | | | | [address] | | + + + + + | Najma Sanches | ECON | Unknown | | + + + + + Care Team Providers + +------+ + | Care Oracle Applications Developer Name | Role | Phone | + +------+ + PCP | Unavailable | + +------+ + Encounter Details +--------+ + + + + | Date | Type | Department | Care Team | Description | +--------+ + + + + | 01/24/ | Hospital | [facility] | | | | 1997 - | Encounter | MED CTR MED ONC | | | | | | [address] | | | | 01/27/ | | [place] [address] | | | | 1997 | | [phone] | | | +--------+ + + + [...]
--- OUTSIDE RECORDS SUMMARY | ~2019-03-03 | XMS | Encounter Summary ---
Demographics + + + | Address | [address] | | | [place] [address] | + + + | Home Phone [...] [place] | | | | | [address] | | + + + + + Care Team Providers + +------+ + | Care Residency Coordinator Name | Role | Phone | [...] | Eugenio Mailcode: RPB07 | [place], | | | | | [place], [place] | [place] [address] | | | | | [address] | [phone] | | | | | [phone] | | | +--------+ + + + [...]
--- OUTSIDE RECORDS SUMMARY | ~2019-03-03 | XMS | Encounter Summary ---
Demographics + + + | Address | [address] | | | [place] [address] | + + + | Home Phone [...] [place] | | | | | [address] | | + + + + + Care Team Providers + +------+ + | Care Field Machinist Name | Role | Phone | [...] as of this encounter Progress Notes Interface, Hair Cutter In - 07/27/2005 2:07 AM PDT [id number] 07/25/2005 07/25/2005 [id number] ARETHA RAE [address] [place] [address] or July 25, 2005 Tuan Chan M.D. [address] [place], [place] RE: GERMAINE CARIAS MR #: [id number] Dear Dr. Chan: Your patient Ms. Germaine Carias returned for an office visit at [facility] on , July 25, 2005. She, [...] this kind referral. Sincerely, Wes Wolff M.D. [facility] / [id number] / [id number] / [id number] / cc: Papi Johnson M.D. [facility] General Surgery documented i n this encounter Plan of Treatment Not on filedocumented as of this encounter Visit Diagnoses Not on filedocumented in this encounter"
--- OUTSIDE RECORDS SUMMARY | ~2019-03-03 | XMS | Encounter Summary ---
Demographics + + + | Address | [address] | | | [place] [address] | + + + | Home Phone [...] [place] | | | | | [address] | | + + + + + Care Team Providers + +------+ + | Care Mail Censor Name | Role | Phone | + [...] 09/07/ | Office | Preoperative | 1, [facility] Clerk Manager [address] | CAD (Coronary Artery | | 2008 | Visit | Medicine Clinic at | [facility] [address] | Disease); Gout; DM | | | | [facility] 4th Floor [address] | [place] [address] | Circ Dis Type II, | | | | [address] | | Uncontrolled (HCC); | | | | Mailcode: CH4S | | Obesity; Achalasia; | | | | [facility] | | Panniculitis; | | | | and Healing, | | Bruise; Other | | | | Building 1,4th Floor | | Specified | | | | [place], [place] | | Pre-Operative | | | | [address] | | Examination | | | | [phone] | | | +--------+---------+ + + + [...] | | | | | | ([facility]) Obesity | | | | [...] | + + + + + | [facility] DEPARTMENT OF | [address] [facility] [facility] | [place] [address] | | | PATHOLOGY | [address] | | | + + + + + | [facility] OF | [address] | [place] [address] | | | PATHOLOGY | [address] [...] | + + + + + | [facility] | [address] [facility] | [place] [address] | | | PATHOLOGY | [address] | | | + + + + + | [facility] | [address] | [place] [address] | | | PATHOLOGY | [address] [...] | + + + + + | [facility] DEPARTMENT OF | [address] | [place] [address] | | | PATHOLOGY | [address] | | | + + + + + | [facility] DEPARTMENT | [address] | [place] [address] | | | PATHOLOGY | [address] [...] Performed At | + + + | [id number] Estimated GFR > 60 mL/min/1.73 sq m if non- | [facility] | | Ethiopian [id number] Estimated GFR > 60 mL/min/1.73 sq m if | DEPARTMENT OF | | Ethiopian GFR is estimated using the MDRD equation [...] | + + + + + | [facility] DEPARTMENT OF | [address] | [place] [address] | | | PATHOLOGY | [address] | | | + + + + + | [facility] DEPARTMENT OF | [address] | [place] [address] | | | PATHOLOGY | [address] [...] | | | | | SHAKIRA GARCIA (7839) | | | | | | on [...] + + + | Please click | [facility] DEPT OF | | on view image for the detailed interpretation from [employer] results. | CARDIOLOGY | | | | + + + + + + + + | Performing | Address | City/State/Zipcode | Phone Number | | Organization | | | | + + + + + | [facility] DEPT OF | [address] | [place], [place] | | | CARDIOLOGY | [address] | [address] | | + + + + + | [facility] DEPT OF | [address] | [place], [place] | | | CARDIOLOGY | [address] | [address] | | + + + + + documented in this encounter Visit Diagnoses + + | Diagnosis | + + | CAD (coronary artery disease) Coronary atherosclerosis of unspecified type of vessel, | | northwestern shosh[place] or graft | + + | Gout [...]
--- OUTSIDE RECORDS SUMMARY | ~2019-03-03 | XMS | Encounter Summary ---
Demographics + + + | Address | [address] | | | [place] [address] | + + + | Home Phone [...] [place] | | | | | [address] | | + + + + + Care Team Providers + +------+ + | Care Technical Sales Representative Name | Role | Phone | [...] | | | | | Procedures | [address] | [place] | | | | | CONSULT TO | [facility] | [facility] | | | | | [place] | [place], [place] | CHILDREN | | | | | | [address] | [address] [facility] | | | | | | Phone: | DEACON BYRNE | | | | | | [phone] | [place], | | | | | | Fax: | [place] [address] | | | | | | [phone] | Phone: | | | | | | | [phone] | | | | | | | Fax: | | | | | | | [phone] | +--------+--------+ + + + + Reason [...] Dx) | | | | Surgery at [facility] [address] | [place], [place] | | | | | [address] | [address] | | | | | Mailcode: [facility] | [phone] | | | | | [facility] | | | | | | and Healing, | | | | | | Building 1, | | | | | | Floor [place], [place] | | | | | | [address] | | | | | | [phone] | | | +--------+---------+ + + + [...] with Dr. Vasquez. She has seen a dental secretary without any change in her rash. She [...] known rash that was seen by a dental secretary, per patient. There was no specific treatab [...]
--- OUTSIDE RECORDS SUMMARY | ~2019-03-03 | XMS | Encounter Summary ---
Demographics + + + | Address | BAD ADDRESS | | | [place] [address] | + + + | Home Phone [...] Author | [facility] | | | and [place] | + + + | Organization | [facility] | | | and [...] | | | | | [place] [address] | | + + + + + | Najma Krishnamurthy | ECON | Unknown | | + + + + + | Hector Mack | ECON | [address] | | | | | [place] | | | | | [address] | | + + + + + | Najma Sanches | ECON | Unknown | | + + + + + Care Team Providers + +------+ + | Care Adoption Worker Name | Role | Phone | + +------+ + PCP | Unavailable | + +------+ + Encounter Details +--------+ + + + + | Date | Type | Department | Care Team | Description | +--------+ + + + + | 12/26/ | Hospital | [facility] | | | | 1991 | Encounter | MED CTR LABORATORY | | | | | | [address] | | | | | | [place] | | | | | | [address] | | | | | | [phone] | | | +--------+ + + + [...]
--- OUTSIDE RECORDS SUMMARY | ~2019-03-03 | XMS | Encounter Summary ---
Demographics + + + | Address | BAD ADDRESS | | | [place] [address] | + + + | Home Phone [...] | Author | [facility] | | | and [place] | + + + | Organization | [facility] | [...] | | | | | [place] [address] | | + + + + + | Najma Krishnamurthy | ECON | Unknown | | + + + + + | Hector Mack | ECON | [address] | | | | | [place] | | | | | [address] | | + + + + + | Najma Sanches | ECON | Unknown | | + + + + + Care Team Providers + +------+ + | Care Director Of Veterans Affairs Name | Role | Phone | + +------+ + PCP | Unavailable | + +------+ + Encounter Details +--------+ + + + + | Date | Type | Department | Care Team | Description | +--------+ + + + + | 07/23/ | [facility] | [facility] | Duarte Moon MD | | | 2012 | Encounter | [facility] | [address] | | | | | [facility] [address] | [place] [facility] [place], [place] | | | | | [address] [facility], | [address] | | | | | [place] [address] | | | | | | [phone] | | | +--------+ + + + [...]
--- OUTSIDE RECORDS SUMMARY | ~2019-03-03 | XMS | Encounter Summary ---
Demographics + + + | Address | [address] | | | [place] [address] | + + + | Home Phone [...] [place] | | | | | [address] | | + + + + + Care Team Providers + +------+ + | Care Signs Sales Representative Name | Role | Phone [...] | | | | | | | [place], [place] | | | | | | | [address] | | | | | | | Phone: | | | | | | | [phone] | | | | | | | Fax: | | | | | | | [phone] | +--------+--------+ + + + + Encounter Details +--------+ + + + + | Date | Type | Department | Care Team | Description | +--------+ + + + + | 05/10/ | Hospital | [facility] [address] | Aysha Blackburn | | | 2008 - | Encounter | CAMPUS Dr Andre Crow MD | | | | | [id number] MIMA | | | | 05/11/ | | [place], | | | | 2008 | | [place] [address] | | | +--------+ + + + [...] [facility] PAC[facility] On POD#1, the patient was [...] clinic a ppointment Call: Plastic surgery resident engineering operations leader at If you have any of the [...] Aysha Blackburn MD, 1 week, please call [phone] for appointment Follow Up Tests: (Tests at [facility] must be entered into Epic) None Condition [...] Discharged Via: Wheelchair Mode of Transportation: Other: [employer] Accompanied by: Staff Transport Company Name: (when applicable) [employer] Phone #: Discharge Nurse: PASQUALE MEYERS RN [...] week for drain removal Lizz Brittany MS4 [address] [place] [address] Kassandra Herman - 05/01 12:00 AM Emily-Germaine brownlee [id number] [facility] REC NUMBER: [id number] NAME : Germaine Heard DATE : 1945 Admit Date: 05/10/2008 Discharge Date: 05/11/2008 PHYSICIAN'S REQUEST FOR HOME HEALTH SERVICES Relevant History: Location to receive services if other than home: Allergies: Height: Weight: Ordering Physician: [address] [place] [address] Physician to follow for ongoing home health orders: PCP Name: PCP Phone: Discharge Need(s): 1. Transportation Discharge Vendor: Medicaid - [place] Discharge Suggested First Visit/Delivery Date: Discharge Service/Equipment: Boxcar Weigher: Oralia Wang documented in this encounter Plan [...] + + + + | PRODUCT | [id number] | | [facility] | | | UNIT [...] | + + + + + | [facility] DEPARTMENT | [address] | [place] [address] | | | PATHOLOGY | [address] | | | + + + + + | [place] DEPARTMENT OF | [address] | [place] [address] | | | PATHOLOGY | [address] [...] + + + + | PRODUCT | [id number] | | [facility] | | | UNIT [...] + + | [facility] | [address] | [place] [address] | | | PATHOLOGY | [address] | | | + + + + + | [facility] | [facility] | [place] [address] | | | PATHOLOGY | [address] | | | + + + + + OPERATION RECORD (05/10/2008 12:00 AM PST) + + + | Narrative | Performed At | + + + | [id number] | | | [id number] | | | [id number] ARETHA RAE [id number] | | | Date: 05/10/2008 Attending Surgeon: | | | Aysha Blackburn MD Finish Inspector(s): | | | Lang Pisano M.D. Preoperative [...] hemostasis was ensured. We then placed two 19-Slovenian Ruel | | | drains in the [...] | | MD LORIE Arce / PASCUAL [id number] / [id number] / [id number] / D: | | | 05/12/2008 | | + + + + + | Procedure Note | + + | Aysha Blackburn MD - 05/10/2008 12:00 AM [facility] [id number] | | [id number] ARETHA RAE | | [id number] Date: 05/10/2008 Attending Surgeon: | | Aysha Blackburn MD Finish Inspector(s): Lang Pisano M.D. | | Preoperative Diagnosis(es):Panniculitis. [...] ensured. We then | | placed two 19-Slovenian Ruel drains in the subcutaneous plane. The [...] Crow | | MD LORIE Blackburn / [id number] / [id number] / [id number] / T: 05/12/2008 | | | | [...] w as ensured. We then placed two 19-Slovenian Ruel drains in the subcutaneous plane. The [...] | | | | |JAM / | |[id number] / [id number] / [id number] / | | | | | | [...] + +---------+ +------+--------+---+ | morphine 5 mg/mL LANDSCAPE GARDENER infusion | New Bag | 05/10/19 | [...]
--- OUTSIDE RECORDS SUMMARY | ~2019-03-03 | XMS | Encounter Summary ---
Demographics + + + | Address | [address] | | | [place] [address] | + + + | Home Phone [...] [place] | | | | | [address] | | + + + + + Care Team Providers + +------+ + | Care Geographic Information System Surveyor Name | Role | Phone | + [...] | | | Surgery at [facility] [address] | | has some | | | | [address] | | concerns, pain | | | | Mailcode: [facility] | | issues) | | | | [facility] | | | | | | and Healing, | | | | | | Building [address], [address]th | | | | | | Floor [place], [place] | | | | | | [address] | | | | | | [phone] | | | +--------+ + + + [...]
--- OUTSIDE RECORDS SUMMARY | ~2019-03-03 | XMS | Encounter Summary ---
Demographics + + + | Address | [address] | | | [place] [address] | + + + | Home Phone [...] [place] | | | | | [address] | | + + + + + Care Team Providers + +------+ + | Care Pet Store Merchandiser Name | Role | Phone | + [...] | Activity | [address] | [address] | | | | | [address] Mailcode: RPB07 | [place], [place] | | | | | [place], [place] | [address] | | | | | [address] | [phone] | | | | | [phone] | | | +--------+ + + + [...]
--- OUTSIDE RECORDS SUMMARY | ~2019-03-03 | XMS | Encounter Summary ---
Demographics + + + | Address | BAD ADDRESS | | | [place] [address] | + + + | Home Phone | | + + + | Preferred Language | Unknown | + + + | Marital Status | | + + + | Temple Affiliation | 1077 | + + + | Race | Unknown | + + + | Ethnic Group | Unknown | + + + Author + + + | Author | [facility] | | | and [place] | + + + | Organization | [facility] | | | and [place] | + + + | Address | Unknown | + + + | Phone | Unavailable | + + + Support + + + + + | Name | Relationship | Address | Phone | + + + + + | Hector Mack | ECON | [address] | | | | | [place] [address] | | + + + + + | Najma Krishnamurthy | ECON | Unknown | | + + + + + | Hector Mack | ECON | [address] | | | | | [place] | | | | | [address] | | + + + + + | Najma Sanches | ECON | Unknown | | + + + + + Care Team Providers + +------+ + | Care Cognos Lead Name | Role | Phone | + +------+ + PCP | Unavailable | + +------+ + Encounter Details +--------+ + + + + | Date | Type | Department | Care Team | Description | +--------+ + + + + | 06/01/ | Hospital | [facility] | | | | 2005 | Encounter | MED CTR XRAY [address] | | | | | | [address] | | | | | | [place] [address] | | | | | | [phone] | | | +--------+ + + + [...]
--- OUTSIDE RECORDS SUMMARY | ~2019-03-03 | XMS | Encounter Summary ---
Demographics + + + | Address | BAD ADDRESS | | | [place] [address] | + + + | Home Phone [...] | Author | [facility] | | | and [place] | + + + | Organization | [facility] | | | and [place] | + + + | Address | Unknown | + + + | Phone | Unavailable | + + + Support + + + + + | Name | Relationship | Address | Phone | + + + + + | Hector Mack | ECON | [address] | | | | | [place] [address] | | + + + + + | Najma Krishnamurthy | ECON | Unknown | | + + + + + | Hector Mack | ECON | [address] | | | | | [place] | | | | | [address] | | + + + + + | Najma Sanches | ECON | Unknown | | + + + + + Care Team Providers + +------+ + | Care Sleeping Room Cleaner Name | Role | Phone | + +------+ + PCP | Unavailable | + +------+ + Encounter Details +--------+ + + + + | Date | Type | Department | Care Team | Description | +--------+ + + + + | 11/28/ | Hospital | [facility] | Pramod Enriquez MD | | | 1998 - | Encounter | MED CTR ICU [address] | [address] | | | | | [place], | [place], [place] | | | 11/29/ | | [place] [address] | [address] | | | 1998 | | [phone] | | | +--------+ + + + [...]
--- OUTSIDE RECORDS SUMMARY | ~2019-03-03 | XMS | Encounter Summary ---
Demographics + + + | Address | [address] | | | [place] [address] | + + + | Home Phone [...] [place] | | | | | [address] | | + + + + + Care Team Providers + +------+ + | Care Plater Hot Dip Name | Role | Phone | + [...] as of this encounter Progress Notes Interface, Excellence Manager In - 07/27/2005 2:07 AM PDT [id number] 07/25/2005 07/25/2005 [id number] ARETHA RAE [address] [place] [address] or July 25, 2005 Tuan Chan M.D. [address] [place], [place] RE: GERMAINE CARIAS MR #: [id number] Dear Dr. Chan: Your patient Ms. Germaine Carias returned for an office visit at [facility] on , July 25, 2005. She, as [...] this kind referral. Sincerely, Wes Wolff M.D. [facility] / [id number] / [id number] / [id number] / cc: Papi Johnson M.D. [facility] General Surgery documented i n this encounter Plan of Treatment Not on filedocumented as of this encounter Visit Diagnoses Not on filedocumented in this encounter"
--- OUTSIDE RECORDS SUMMARY | ~2019-03-03 | XMS | Encounter Summary ---
Demographics + + + | Address | BAD ADDRESS | | | [place] [address] | + + + | Home Phone [...] + | Author | [facility] | | | and [place] | + + + | Organization | [facility] [...] | | | | | [place] [address] | | + + + + + | Najma Krishnamurthy | ECON | Unknown | | + + + + + | Hector Mack | ECON | [address] | | | | | [place] | | | | | [address] | | + + + + + | Najma Sanches | ECON | Unknown | | + + + + + Care Team Providers + +------+ + | Care Batch Mixer Operator Name | Role | Phone | + +------+ + PCP | Unavailable | + +------+ + Encounter Details +--------+ + + + + | Date | Type | Department | Care Team | Description | +--------+ + + + + | 02/15/ | Hospital | [facility] | | | | 1995 - | Encounter | MED CTR ICU [address] | | | | | | [place], | | | | 02/18/ | | [place] [address] | | | | 1995 | | [phone] | | | +--------+ + + + [...]
--- OUTSIDE RECORDS SUMMARY | ~2019-03-03 | XMS | Encounter Summary ---
Demographics + + + | Address | BAD ADDRESS | | | [place] [address] | + + + | Home Phone [...] + | Author | [facility] | | | and [place] | + + + | Organization | [facility] | [...] | | | | | [place] [address] | | + + + + + | Najma Krishnamurthy | ECON | Unknown | | + + + + + | Hector Mack | ECON | [address] | | | | | [place] | | | | | [address] | | + + + + + | Najma Sanches | ECON | Unknown | | + + + + + Care Team Providers + +------+ + | Care Evp [employer] Name | Role | Phone | + +------+ + PCP | Unavailable | + +------+ + Encounter Details +--------+ + + + + | Date | Type | Department | Care Team | Description | +--------+ + + + + | 09/04/ | Hospital | [facility] | Mathew Sofia | Chest pain; NSTEMI | | 2012 - | Encounter | [facility] | MD [address] | (non-ST elevated | | | | CARE FLOOR [address] | myocardial | | 09/06/ | | [address] | [place] [address] | infarction) (HCC); | | 2012 | | [place], [place] | [phone] | CAD (coronary artery | | | | [address] | | disease); HTN | | | | [phone] | | (hypertension) | +--------+ + + [...] Summaries by Augustine Trejo MD at 09/06/12 0556 Author: Augustine Trejo MD Service: (none) Author Type: Physician Filed: 09/07/12 1701 Date of Service: 09/06/12 8325 Status: Signed Product Manufacturing Professional: Augustine Trejo MD (Physician) [facility] Service: Hospitalist Discharge Summary Date [...] AM UTI + afebrile 1. Non-ST elevation ND evident - cont ASA and plavix and [...] Kidney disease COPD (chronic obstructive pulmonary disease) ND (myocardial infarction) Past Surgical History Procedure Date [...] Follow up: Tuan Chan MD 2010 [address] [facility] [address] Schedule an appointment as soon as possible for a visit DO [address], [address] [place] [address] Schedule an appointment as soon as possible [...] 1714 Date of Service: 09/06/121712 Status: Signed Product Manufacturing Professional: Francesco Reyna RN (Registered Nurse) Pt discharged home. Stable. Scripts given. Verbal and written discharge instructions given. Pt states no pain at time of discharge. FRANCESCO REYNA RN Augustine Cintron MD - 09/05/2012 2:21 PM PDT Progress Notes by Augustine Trejo MD at 09/05/12 142 Author: Augustine Trejo MD Service: (none) Author Type: Physician Filed: 09/05/12 1502 Date of Service: 09/05/121420 Status: Signed Product Manufacturing Professional: Augustine Trejo MD (Physician) [facility] Service: Hospitalist Progress Note Hospital [...] disease) ASSESSMENT & PLAN 1. Non-ST elevation ND evident - Dr. Naqvi on consult and [...] 09/05/12902 Date of Service: 09/05/12902 Status: Signed Product Manufacturing Professional: Deedee Cisneros RPH (Pharmacist) Renal Dosing Monitoring: [...] | Testing performed at | | | [facility];[address];[place] [address] CULTURE | | | >100,000 CFU/ML MIXED GRAM NEGATIVE KRISTEN | | | NO FURTHER WORKUP | | | Testing performed at [facility], | | | [address] [place] [address] REPORT STATUS | | | 09/07/2012 FINAL [...] | | with 2.25 x 12 mm Ton[place] balloon followed by stenting with 2.5 x 12 | | | mm Promus Element drug eluting stent. 6. Percutaneous | | | transluminal coronary angioplasty of the distal right coronary | | | artery with 3 x 12 mm [place] balloon followed by stenting with 3.5 | [...] femoral artery and a | | | 6-Northern Irish arterial sheath was placed. A 6-Northern Irish JL4 catheter was then | | | advanced under fluoroscopic guidance and engaged with the ostium of | | | the left main coronary artery, and multiple projections of the left | | | coronary systems were obtained with the use of contrast injections. | | | The catheter was then exchanged to a 6-Northern Irish JR4 catheter, which was | | | advanced under fluoroscopic guidance and engaged with the ostium of | | | the right coronary artery, and multiple projections of the right | | | coronary artery were obtained with the use of contrast injections. | | | The catheter was then exchanged to a 6-Northern Irish pigtail catheter which | | | was [...] 3 x 12 | | | mm Tonopah balloon at the site of the distal [...] with | | 2.25 x 12 mm [place] balloon followed by stenting with 2.5 x 12 mm Promus | | Element drug eluting stent. | | 6. Percutaneous transluminal coronary angioplasty of the distal right | | coronary artery with 3 x 12 mm Ton[place] balloon followed by stenting with | | [...] obtained via right femoral artery and a 6-Northern Irish arterial sheath was | | placed. A 6-Northern Irish JL4 catheter was then advanced under fluoroscopic | | guidance and engaged with the ostium of the left main coronary artery, and | | multiple projections of the left coronary systems were obtained with the | | use of contrast injections. The catheter was then exchanged to a 6-Northern Irish | | JR4 catheter, which was advanced under fluoroscopic guidance and engaged | | with the ostium of the right coronary artery, and multiple projections of | | the right coronary artery were obtained with the use of contrast | | injections. The catheter was then exchanged to a 6-Northern Irish pigtail catheter | | which was advanced [...] then done with 3 x 12 mm Tonopah balloon | | at the site of [...] | | with 2.25 x 12 mm Ton[place] balloon followed by stenting with 2.5 x 12 | | | mm Promus Element drug eluting stent. 6. Percutaneous | | | transluminal coronary angioplasty of the distal right coronary | | | artery with 3 x 12 mm [place] balloon followed by stenting with 3.5 | [...] femoral artery and a | | | 6-Northern Irish arterial sheath was placed. A 6-Northern Irish JL4 catheter was then | | | advanced under fluoroscopic guidance and engaged with the ostium of | | | the left main coronary artery, and multiple projections of the left | | | coronary systems were obtained with the use of contrast injections. | | | The catheter was then exchanged to a 6-Northern Irish JR4 catheter, which was | | | advanced under fluoroscopic guidance and engaged with the ostium of | | | the right coronary artery, and multiple projections of the right | | | coronary artery were obtained with the use of contrast injections. | | | The catheter was then exchanged to a 6-Northern Irish pigtail catheter which | | | was [...] 3 x 12 | | | mm Tonopah balloon at the site of the distal [...] with | | 2.25 x 12 mm [place] balloon followed by stenting with 2.5 x 12 mm Promus | | Element drug eluting stent. | | 6. Percutaneous transluminal coronary angioplasty of the distal right | | coronary artery with 3 x 12 mm Ton[place] balloon followed by stenting with | | [...] obtained via right femoral artery and a 6-Northern Irish arterial sheath was | | placed. A 6-Northern Irish JL4 catheter was then advanced under fluoroscopic | | guidance and engaged with the ostium of the left main coronary artery, and | | multiple projections of the left coronary systems were obtained with the | | use of contrast injections. The catheter was then exchanged to a 6-Northern Irish | | JR4 catheter, which was advanced under fluoroscopic guidance and engaged | | with the ostium of the right coronary artery, and multiple projections of | | the right coronary artery were obtained with the use of contrast | | injections. The catheter was then exchanged to a 6-Northern Irish pigtail catheter | | which was advanced [...] then done with 3 x 12 mm Tonopah balloon | | at the site of [...] of unspecified type of vessel, | | paimiut or graft | + + | HTN (hypertension) Unspecified essential hypertension | + + documented in this encounter
--- OUTSIDE RECORDS SUMMARY | ~2019-03-03 | XMS | Encounter Summary ---
Demographics + + + | Address | [address] | | | [place] [address] | + + + | Home Phone [...] [place] | | | | | [address] | | + + + + + Care Team Providers + +------+ + | Care Block Machine Operator Name | Role | Phone [...] | Eugenio Mailcode: [id number] | [address] [place], | | | | | [place], [place] | [place] [address] | | | | | [address] | [phone] | | | | | [phone] | | | +--------+ + + + [...]
--- OUTSIDE RECORDS SUMMARY | ~2019-03-03 | XMS | Encounter Summary ---
Demographics + + + | Address | BAD ADDRESS | | | [place] [address] | + + + | Home Phone [...] + | Author | [facility] | | | and [place] | + + + | Organization | [facility] | | | and [place] | + + + | Address | Unknown | + + + | Phone | Unavailable | + + + Support + + + + + | Name | Relationship | Address | Phone | + + + + + | Hector aMck | ECON | [address] | | | | | [place] [address] | | + + + + + | Najma Krishnamurthy | ECON | Unknown | | + + + + + | Hector Mack | ECON | [address] | | | | | [place] | | | | | [address] | | + + + + + | Najma Sanches | ECON | Unknown | | + + + + + Care Team Providers + +------+ + | Care Obstetrics Teacher Name | Role | Phone | + +------+ + PCP | Unavailable | + +------+ + Encounter Details +--------+ + + + + | Date | Type | Department | Care Team | Description | +--------+ + + + + | 10/05/ | Hospital | [facility] | Bo Smith | | | 2011 | Encounter | HOSPITAL EMERGENCY | MD [address] | | | | [address] | [facility] | | | | | [address] [place], [place] | [place], [place] | | | | | [address] | [address] | | | | | [phone] | [phone] | | | | | | | [...]
--- OUTSIDE RECORDS SUMMARY | ~2019-03-03 | XMS | Encounter Summary ---
Demographics + + + | Address | BAD ADDRESS | | | [place] [address] | + + + | Home Phone | | + + + | Preferred Language | Unknown | + + + | Marital Status | | + + + | Hinduism Affiliation | 1077 | + + + | Race | Unknown | + + + | Ethnic Group | Unknown | + + + Author + + + | Author | [facility] | | | and [place] | + + + | Organization | [facility] | [...] | | | | | [place] [address] | | + + + + + | Najma Krishnamurthy | ECON | Unknown | | + + + + + | Hector Mack | ECON | [address] | | | | | [place] | | | | | [address] | | + + + + + | Najma Sanches | ECON | Unknown | | + + + + + Care Team Providers + +------+ + | Care Retail Delivery Driver Name | Role | Phone | + +------+ + PCP | Unavailable | + +------+ + Encounter Details +--------+ + + + + | Date | Type | Department | Care Team | Description | +--------+ + + + + | 05/15/ | Hospital | [facility] | | | | 2000 - | Encounter | MED CTR GENERIC OP | | | | | | CONV DEPT [address] | | | | 06/20/ | | [place], | | | | 2000 | | [place] [address] | | | | | | [phone] | | | +--------+ + + + [...]
--- OUTSIDE RECORDS SUMMARY | ~2019-03-03 | XMS | Encounter Summary ---
Demographics + + + | Address | [address] | | | [place] [address] | + + + | Home Phone [...] [place] | | | | | [address] | | + + + + + Care Team Providers + +------+ + | Care Truck Rental Service Attendant Name | Role | Phone [...] | Eugenio Mailcode: [id number] | [address] [place], | | | | | [place], [place] | [place] [address] | | | | | [address] | [phone] | | | | | [phone] | | | +--------+ + + + [...]
--- OUTSIDE RECORDS SUMMARY | ~2019-03-03 | XMS | Encounter Summary ---
Demographics + + + | Address | [address] | | | [place] [address] | + + + | Home Phone [...] [place] | | | | | [address] | | + + + + + Care Team Providers + +------+ + | Care End User Support Specialist Name | Role | Phone [...] Dx); | | | | Surgery at [facility] [address] | | Intertrigo; CAD | | | | [address] | | (Coronary Artery | | | | Mailcode: [facility] | | Disease); DM Circ | | | | [facility] | | Dis Type II, | | | | and Healing, | | Uncontrolled ([facility]) | | | | Building 1, | | | | | | Floor [place], [place] | | | | | | [address] | | | | | | [phone] | | | +--------+---------+ + + + [...] surgeries scheduled to take place on the [place] at the [facility]: Surgeries scheduled in the [facility] ( North): registration is located on the 4th floor of [facility] (Day Surgery). Surgeries scheduled in the [facility]: registration is located on the 9th floor. Surgeries scheduled in [facility]: registration is located on the 6th floor. Surgeries scheduled in the [facility]: registration is located i n the [facility] on the first floor. For surgeries scheduled to take place at the [facility]: registration is l [...] Accession | | | | | | #:[id number] CC | | | | | | [...] | | | | | | at [facility] and | | | | | | Science | | | | | | [place].ASSESSMENT: | | | | | | Negative [...] + + + + | [facility] | [facility] | [place] [address] | | | PATHOLOGY | [address] | | | + + + + + | [facility] | [facility] [address] | [place] [address] | | | PATHOLOGY | [address] [...] | + + + + + | [facility] DEPART[facility] | [address] | [place] [address] | | | PATHOLOGY | [address] | | | + + + + + | [facility] DE[facility] | [address] | [place] [address] | | | PATHOLOGY | [address] [...] | + + + + + | [facility] DEPART[facility] | [address] [facility] | [place] [address] | | | PATHOLOGY | [address] | | | + + + + + | [facility] DE[facility] | [address] [facility] | [place] [address] | | | PATHOLOGY | [address] [...] Performed At | + + + | [id number] Estimated GFR > 60 mL/min/1.73 sq m if non- | [facility] | | [place] Citizen [id number] Estimated GFR > 60 mL/min/1.73 sq m if | DEPARTMENT OF | | [place] Citizen GFR is estimated using the MDRD equation [...] + + + + | [facility] | [facility] | [place] [address] | | | PATHOLOGY | [address] | | | + + + + + | [facility] | [address] [facility] | [place] [address] | | | PATHOLOGY | [address] [...] DEPARTMENT OF | [address] | [place] [address] | | | PATHOLOGY | [address] | | | + + + + + | [facility] DEPARTMENT OF | [address] | [place] [address] | | | PATHOLOGY | [address] | | | + + + + + documented in this encounter Visit Diagnoses + + | Diagnosis | + + | Panniculitis - Primary Panniculitis, unspecified site | + + | Intertrigo Other specified erythematous condition | + + | CAD (coronary artery disease) Coronary atherosclerosis of unspecified type of vessel, | | caddo or graft | + + | Type II or unspecified type diabetes mellitus with peripheral circulatory disorders, | | uncontrolled(250.72) Type II or unspecified type diabetes mellitus with peripheral | | circulatory disorders, uncontrolled | + + documented in this encounter
--- OUTSIDE RECORDS SUMMARY | ~2019-03-03 | XMS | Encounter Summary ---
Demographics + + + | Address | [address] | | | [place] [address] | + + + | Home Phone [...] [place] | | | | | [address] | | + + + + + Care Team Providers + +------+ + | Care Medical Dosimetrist Name | Role | Phone | + [...] | | | | CONSULT TO | [place], [place] | Mailcode: | | | | | [place] | [address] | [facility] | | | | | SKIN ABD AL | | for Health | | | | | REDUCTION | | and Healing, | | | | | OF LARGE | | Building 1, | | | | | BREAST | | 5th Floor | | | | | Procedure to | | [place], [place] | | | | | be | | [address] | | | | | performed: | | Phone: | | | | | breast | | [phone] | | | | | reduction | [...] | | | | | | | ([id number]) and | | | | | | | Reduction of | | | | | | | large | | | | | | | breast | | | | | | | ([id number]) | | | +--------+--------+ + + + [...] Dx) | | | | Surgery at [facility] [address] | [place], [place] | | | | | [address] | [address] | | | | | Mailcode: [facility] | [phone] | | | | | [facility] | | | | | | and Healing, | | | | | | Building 1, 5th | | | | | | Floor [place], [place] | | | | | | [address] | | | | | | [phone] | | | +--------+---------+ + + + [...] 18 years ago Occupation: unemployed, lives in [place] Family History Problem Relation Heart Mother Diabetes [...] per side. Plan: --Patient will followup with rubbing bed operator, who will re-evaluate her rash prior to proceedi ng with breast surgery. Requested that derm forward their note to us. --Our pastry supervisor will provide the patient with a key [...]
--- OUTSIDE RECORDS SUMMARY | ~2019-03-03 | XMS | Encounter Summary ---
Demographics + + + | Address | BAD ADDRESS | | | [place] [address] | + + + | Home Phone [...] | Author | [facility] | | | and Byronana | + + + | Organization | [facility] | [...] | | | | | [place] [address] | | + + + + + | Najma Krishnamurthy | ECON | Unknown | | + + + + + | Hector Mack | ECON | [address] | | | | | [place] | | | | | [address] | | + + + + + | Najma Sanches | ECON | Unknown | | + + + + + Care Team Providers + +------+ + | Care Slotter Operator Name | Role | Phone | + +------+ + | Tuan Chan MD | PCP | | + +------+ + Encounter Details +--------+ + + + + | Date | Type | Department | Care Team | Description | +--------+ + + + + | 01/03/ | Emergency | [facility] | Silas Maravilla | Cellulitis of chest | | 2018 | | HOSPITAL EMERGENCY | MD [address] | [place] (Primary Dx) | | | | [address] | JOSE M SHAFER, | | | | | [facility] [employer], [place] | [place] [address] | | | | | [address] | [phone] | | | | | [phone] | | | +--------+ + + + [...] not be allowed to run out. Contact [facility] Medical clinic as well as [facility] Friday to establish with a [...] D?MRN: | | | | | | [id number] | | | [id number] | | | his | | | [...] | | | St. | | | [place] | | | y | | | [...] | | | St. | | | [place] | | | y | | | [...] | | | [place] | | | [facility], | | | [place] - | | | info@c | | | ollect | | | ivemed | | | icalte | | | iLogon | | | | +---+--------+ documented in [...]
--- OUTSIDE RECORDS SUMMARY | ~2019-03-03 | XMS | Encounter Summary ---
Demographics + + + | Address | [address] | | | [place] [address] | + + + | Home Phone [...] [place] | | | | | [address] | | + + + + + Care Team Providers + +------+ + | Care Black Ash Worker Name | Role | Phone | [...] | | | obstructing | SAINT | [address] | | | | | calculus at | [address]A | Ave | | | | | the right | [facility] | [place], [place] | | | | | [place]. | [address] | [address] | | | | | | [address] | Phone: | | | | | | [place], | [phone] | | | | | | [place] [address] | Fax: | | | | | | Phone: | [phone] | | | | | | [phone] | | | | | | | Fax: | | | | | | | [phone] | | +--------+--------+ + + + + [...] | | | | Mailcode: CH10U | [place], [place] | specified | | | | [facility] | [address] | pre-operative | | | | and Healing, | [phone] | examination | | | | | | | | | | Floor [place], [place] | | | | | | [address] | | | | | | [phone] | | | +--------+---------+ + + + [...] surgeries [place] at [facility]: Surgeries scheduled in the [facility] (4 North): registration is located on the 4th floor of [facility] (Day Surgery). Surgeries scheduled in the [facility]: registration is located on the 9th floor. Surgeries scheduled in [facility]: registration is located on the 6th floor. Surgeries scheduled in the [facility]: registration is located i n the [facility] [...] female referred by Dr. 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 She has been maintained of Plavx since then but stopped it over a week ago. She has no cardiac symptoms especially since w eight loss from 550 to 190 after gastric bypass in 2005. Pannus removed more recently by Dr. Gia Amin at [facility]. 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 Social History Main Topics Smoking status: Former [...] + + documented in this encounter Results [facility] - BASIC METABOLIC SET (03/11/2011 5:13 [...] + + + | Test performed by: [facility] | [facility] | | Outpatient Lab CH[address] [place], [place] [address] | DEPARTMENT OF | | | PATHOLOGY | + + + + + + + + | Performing | Address | City/State/Zipcode | Phone Number | | Organization | | | | + + + + + | [facility] DEPARTMENT OF | [address] | [place] [address] | | | PATHOLOGY | [address] [...] + + + | Test performed by: [facility] | [facility] | | Outpatient Lab [facility] [address] [place], [place] [address] | DEPARTMENT OF | | Sent to [facility]. | PATHOLOGY | + + + + + + + + | Performing | Address | City/State/Zipcode | Phone Number | | Organization | | | | + + + + + | [facility] DEPARTMENT | [address] | [place] [address] | | | PATHOLOGY | [address] | | | + + + + + 12 LEAD ECG (03/11/2011 4:58 PM PST) + + + + + + | Component | Value | Ref Range | Performed | Pathologist | | | | | At | Signature | + + + + + + | VENTRICULAR | 62 | BPM | [facility] DEPT | | | RATE [...] view image for the detailed interpretation from [employer] results. | CARDIOLOGY | + + + + + + + + | Performing | Address | City/State/Zipcode | Phone Number | | Organization | | | | + + + + + | [facility] DEPT OF | [address] | [place], [place] | | | CARDIOLOGY | [address] | [address] | | + + + + + [...] | | | | | | RLB ([facility]) | | | | | | [place] | | | | | | [facility] | | | | | | [address] [address] | | | | | | [place], [place] | | | | | | [address] | | | | + + + + + + + + | Specimen | + + | Urine - Voided | + + + + + + + | Performing | Address | City/State/Zipcode | Phone Number | | Organization | | | | + + + + + | [facility] | [address] | [place] [address] | | | LAB-MICRO | | | [...] + | MARLEEN CALLAWAY | [address] [facility] | [place] [address] | | | OF CARE TESTS | | | | + + + + + documented in this encounter Visit Diagnoses + + | Diagnosis | + + | Kidney stone - Primary Calculus of kidney | + + | Other specified pre-operative examination | + + documented in this encounter
--- OUTSIDE RECORDS SUMMARY | ~2019-03-03 | XMS | Encounter Summary ---
Demographics + + + | Address | [address] | | | [place] [address] | + + + | Home Phone [...] [place] | | | | | [address] | | + + + + + Care Team Providers + +------+ + | Care Supervisor Pipeline Maintenance Name | Role | Phone | [...] removal) | | | | Surgery at [facility] [address] | | | | | | [address] | | | | | | Mailcode: CH5P | | | | | | [facility] | | | | | | and Healing, | | | | | | Building 1 | | | | | | Floor [place], [place] | | | | | | [address] | | | | | | [phone] | | | +--------+ + + + [...]
--- OUTSIDE RECORDS SUMMARY | ~2019-03-03 | XMS | Encounter Summary ---
Demographics + + + | Address | BAD ADDRESS | | | [place] [address] | + + + | Home Phone | | + + + | Preferred Language | Unknown | + + + | Marital Status | | + + + | Hoahaoism Affiliation | 1077 | + + + | Race | Unknown | + + + | Ethnic Group | Unknown | + + + Author + + + | Author | [facility] | | | and Byronana | + + + | Organization | [facility] | | | and Byronana | + + + | Address | Unknown | + + + | Phone | Unavailable | + + + Support + + + + + | Name | Relationship | Address | Phone | + + + + + | Hector Mack | ECON | [address] | | | | | [place] [address] | | + + + + + | Najma Krishnamurthy | ECON | Unknown | | + + + + + | Hector Mack | ECON | [address] | | | | | [place] | | | | | [address] | | + + + + + | Najma Sanches | ECON | Unknown | | + + + + + Care Team Providers + +------+ + | Care Engineering Technical Writer Name | Role | Phone | + +------+ + | Tuan Chan MD | PCP | | + +------+ + Encounter Details +--------+ + + + + | Date | Type | Department | Care Team | Description | +--------+ + + + + | 06/10/ | Hospital | [facility] | Leandra Chávez, | Unstable angina | | 2016 - | Encounter | MED CTR ICU [address] | [address] | ([facility]) (Primary Dx); | | | | [address] [place], | [place], [place] | Non-cardiac chest | | 06/11/ | | [place] [address] | [address] | pain | | 2015 | | [phone] | | | +--------+ + + + [...] Unstable angina . She was transferred from [facility] with ongoing chest pain. Today at lunch time she developed chest discomfort. She was preparing lunch at the time. T preethi discomfort was sharp and stabbing. She was transferred from [facility] on NTG and heparin. The transfer took about 8 hours. The pain has not gone away. She was started on NTG drip a nd heparin. NTG was titrated up. She arrived here on 30 mcg/ min. She still had 4/10 pain . She had no acute ECG changes. She had some dyspnea and diaphoresis no radiation. She was taken to the bundle tier and labeler due to ongoing chest pain: PROCEDURES PERFORMED: [...] was performed in multiple views using 6 Spanish JL5 and 5 F AL1 and an [...] medication that helps the stomach empty better. [id number] [employer]. [address] [place], [place] [id number]. All righ ts reserved. This information is [...] PROVIDER: | | | Tuan Chan MD TELEVISION NEWS VIDEO EDITOR: Dr. Leandra Chávez MD, | | | [facility], [facility] PRE-PROCEDURE DIAGNOSIS: Unstable Angina | | [...] multiple views | | | using 6 Spanish JL5 and 5 F AL1 and an JESUS diagnostic catheters. | | | A 5 bulgarian pigtail catheter was advanced into the left [...] RECOMMENDATIONS Continue medical Rx Leandra Chávez MD, [facility], | | | [facility] DATE/TIME: 06/12/2015 0:27 | | | 06/12/2015 0:27 Portions of this chart were created with [employer] | | | voice recognition software. Occasional [...] + | [facility] | [address] | [place], [place] | [phone] | | [facility] | | [address] | | | - LABORATORY | | [...] | | | | ERWIN MORALES MD ([id number]) | | | | | | on [...] + | [facility] | [address] | [place], [place] | [phone] | | [facility] | | [address] | | | - LABORATORY | | [...] ST. | [address] | [place], [place] | [phone] | | [facility] | | [address] | | | - LABORATORY | | [...] | | | | | mg/dL | [facility] | | | | | | MEDICAL | | | | | | CENTER - | | | | | | LABORATORY | | + + + + + + | eGFR if not | >60Comment: GLOMERULAR | >=60 | [facility] | | | | FILTRATION | mL/min/1.73m2 | [facility] | | | DJIBOUTIAN | RATE,ESTIMATED | | MEDICAL | | | | mL/min/1.23v3Godu than | | CENTER - | | [...] | | | | | mg/dL | [facility] | | | | | | MEDICAL [...] + + + + + + | Albumin/Hsirin | 1.5 | | [facility] | | [...] ST. | [address] | [place], [place] | [phone] | | [facility] | | [address] | | | - LABORATORY | | [...] [address] | [place] | [phone] | | [facility] | | [address] | | | - LABORATORY | | [...] | | | | | | [employer] | | | | | [...] + | [facility] | [address] | [place] | [phone] | | [facility] | | [address] | | | - LABORATORY | | [...] + | [address] | [address] | [place], [place] | [phone] | | [facility] | | [address] | | | - LABORATORY | | [...]
--- OUTSIDE RECORDS SUMMARY | ~2019-03-03 | XMS | Encounter Summary ---
Demographics + + + | Address | BAD ADDRESS | | | [place] [address] | + + + | Home Phone [...] Author | [facility] | | | and Byronana | + + + | Organization | [facility] | | | and [...] | | | | | [place] [address] | | + + + + + | Najma Krishnamurthy | ECON | Unknown | | + + + + + | Hector Mack | ECON | [address] | | | | | [place] | | | | | [address] | | + + + + + | Najma Sanches | ECON | Unknown | | + + + + + Care Team Providers + +------+ + | Care Cage Maker Name | Role | Phone | + +------+ + PCP | Unavailable | + +------+ + Encounter Details +--------+ + + + + | Date | Type | Department | Care Team | Description | +--------+ + + + + | 12/03/ | Hospital | [facility] | | | | 1997 - | Encounter | MED CTR MED ONC | | | | | | [address] | | | | 12/11/ | | [place] [address] | | | | 1997 | | [phone] | | | +--------+ + + + [...]
--- OUTSIDE RECORDS SUMMARY | ~2019-03-03 | XMS | Encounter Summary ---
Demographics + + + | Address | [address] | | | [place] [address] | + + + | Home Phone [...] [place] | | | | | [address] | | + + + + + Care Team Providers + +------+ + | Care Metal Mixer Name | Role | Phone | [...] | | | | Mailcode: CH10U | [place], [place] | | | | | [facility] | [address] | | | | | and Healing, | [phone] | | | | | | | | | | | Floor [place], [place] | | | | | | [address] | | | | | | [phone] | | | +--------+ + + + [...] [facility] [place] | [address] | [place] [address] | | | PATHOLOGY | [address] | | | + + + + + documented in this encounter Visit Diagnoses Not on filedocumented in this encounter"
--- OUTSIDE RECORDS SUMMARY | ~2019-03-03 | XMS | Encounter Summary ---
Demographics + + + | Address | BAD ADDRESS | | | [place] [address] | + + + | Home Phone [...] Author | [facility] | | | and Byronana | + + + | Organization | [facility] | [...] | | | | | [place] [address] | | + + + + + | Najma Krishnamurthy | ECON | Unknown | | + + + + + | Hector Mack | ECON | [address] | | | | | [place] | | | | | [address] | | + + + + + | Najma Sanches | ECON | Unknown | | + + + + + Care Team Providers + +------+ + | Care Special Population Paraprofessional Name | Role | Phone | + +------+ + PCP | Unavailable | + +------+ + Encounter Details +--------+ + + + + | Date | Type | Department | Care Team | Description | +--------+ + + + + | 02/25/ | Hospital | [facility] | Colton Long, | | | 2000 | Encounter | MED CTR LABORATORY | [address] [place] [address] | | | | | [address] | [place] | | | | | [place] | [address] | | | | | [address] | | | | | | [phone] | | | +--------+ + + + [...]
--- OUTSIDE RECORDS SUMMARY | ~2019-03-03 | XMS | Encounter Summary ---
Demographics + + + | Address | [address] | | | [place] [address] | + + + | Home Phone [...] [place] | | | | | [address] | | + + + + + Care Team Providers + +------+ + | Care Hair Baler Name | Role | Phone | + [...] | | | | | | | [facility] | | | | | | | [place] | | | | | | | [facility] | | | | | | | ([facility]) | | | | | | | [place], | | | | | | | [place] [address] | | | | | | | Phone: | | | | | | | [phone] | | | | | | | Fax: | | | | | | | [phone] | +--------+--------+ + + + + Encounter Details +--------+ + + + + | Date | Type | Department | Care Team | Description | +--------+ + + + + | 09/08/ | Hospital | [facility] [address] | Noe Hdez, | | | 2008 | Encounter | [address] | [address] | | | | | [address] | [facility] [place] | | | | | [facility] | [address] | | | | | ([facility]) | [phone] | | | | | [place], [place] | | | | | | [address] | | | | | | [phone] | | | +--------+ + + + [...] to urinate. HAVING A URETERAL STENT: Call: [facility] Urology/Renal Transplant at If you have any of the following: Difficulty breathing or unusual shortness of breath Excessive bleeding, drainage at the operative site Fevers, chills, increased pain that is not relieved by pain medications Persistent nausea or vomiting Other SPECIFIC concerns, such as: If you are unable to urinate. Follow Up Appointments: Dr. Hdez in 2 weeks Follow Up Tests: (Tests at [facility] must be entered into [place]) Ureteral stent removal Discharge Patient To: Home [...] problems, you can discuss it with your energy project manager and colleagues so that possible temporary [...] this happens, you should contact the urologist manager of transportation for [place]. IS THERE POSSIBILITY OF A URINARY TRACT [...] urine. For medical emergencies, call 911. Call: [facility] Urology/Renal Transplant at If you have any of the following: Difficulty breathing or unusual shortness of breath Excessive bleeding, drainage at the operative site Fevers, chills, increased pain that is not relieved by pain medications Persistent nausea or vomiting Other SPECIFIC concerns, such as: If you are unable to urinate. Follow Up Appointments: Dr. Hdez in 2 weeks Follow Up Tests: (Tests at [facility] must be entered into [facility]) Ureteral stent removal Discharge Patient To: Home Discharging Provider: GAUTAM TAVERAS MD Date Completed: 09/08/2008 [facility] Home Care After CYSTOSCOPY Follow [...] from 8:00 4:30, call the Urology Clinic [phone]. After hours, weekend and holidays call the Hospital Speed Reading Teacher at [phone]. Ask for them to page your doctor. [...] | | | | | acid.Performed by [employer] | | | | | | [facility],[address] | | | | | | [place] [address] | | | | | | [phone].[email or web address]. | | | | | | [facility], | | | | | | - [...] [facility] | [address] | [place] [address] | | | PATHOLOGY | [address] [...]
--- OUTSIDE RECORDS SUMMARY | ~2019-03-03 | XMS | Encounter Summary ---
Demographics + + + | Address | BAD ADDRESS | | | [place] [address] | + + + | Home Phone [...] Author | [facility] | | | and Byronana | + + + | Organization | [facility] [...] | | | | | [place] [address] | | + + + + + | Najma Krishnamurthy | ECON | Unknown | | + + + + + | Hector Mack | ECON | [address] | | | | | [place] | | | | | [address] | | + + + + + | Najma Sanches | ECON | Unknown | | + + + + + Care Team Providers + +------+ + | Care Dairy Associate Name | Role | Phone | [...] | 2018 | | HOSPITAL DERMATOLOGY | MEDICATION TECHNICIAN [address] | | | | | CLINIC [address] | [place], | | | | | [place], | [place] [address] | | | | | [place] [address] | [phone] | | | | | [phone] | | | +--------+ + + + [...]
--- OUTSIDE RECORDS SUMMARY | ~2019-03-03 | XMS | Encounter Summary ---
Demographics + + + | Address | [address] [address] | | | [place] [address] | + + + | Home Phone [...] [place] | | | | | [address] | | + + + + + Care Team Providers + +------+ + | Care Lead Recreation Assistant Name | Role | Phone | [...] | | | | | | | [place], [place] | | | | | | | [address] | | | | | | | Phone: | | | | | | | [phone] | | | | | | | Fax: | | | | | | | [phone] | +--------+--------+ + + + + Encounter Details +--------+---------+ + + + | Date | Type | Department | Care Team | Description | +--------+---------+ + + + | 05/09/ | Office | Plastic and | Resident, Pls | Panniculitis | | 2008 | Visit | Reconstructive | [address] | (Primary Dx) | | | | Surgery at [facility] [address] | [place] [address] | | | | | [address] | | | | | | Mailcode: CH5P | | | | | | [facility] | | | | | | and Healing, | | | | | | Building | | | | | | Floor [place], [place] | | | | | | [address] | | | | | | [phone] | | | +--------+---------+ + + + [...] 1 Years of Education: N/A 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
--- OUTSIDE RECORDS SUMMARY | ~2019-03-03 | XMS | Encounter Summary ---
Demographics + + + | Address | BAD ADDRESS | | | [place] [address] | + + + | Home Phone [...] | Author | [facility] | | | and Byronana | + + + | Organization | [facility] [...] | | | | | [place] [address] | | + + + + + | Najma Krishnamurthy | ECON | Unknown | | + + + + + | Hector Mack | ECON | [address] | | | | | [place] | | | | | [address] | | + + + + + | Najma Sanches | ECON | Unknown | | + + + + + Care Team Providers + +------+ + | Care Locker Room Clerk Name | Role | Phone | + +------+ + PCP | Unavailable | + +------+ + Encounter Details +--------+ + + + + | Date | Type | Department | Care Team | Description | +--------+ + + + + | 07/25/ | Hospital | [facility] | Tuan Chan, | LUMBOSACRAL NEURITIS | | 2004 | Encounter | CONVERSION [address] | MD 2010 | NOS | | | | [address] | [facility], [place] | | | | | [place], [place] | [address] | | | | | [address] | [phone] | | | | | [phone] | | | +--------+ + + + [...]
--- OUTSIDE RECORDS SUMMARY | ~2019-03-03 | XMS | Encounter Summary ---
Demographics + + + | Address | BAD ADDRESS | | | [place] [address] | + + + | Home Phone [...] | [facility] | | | and [place]ana | + + + | Organization | [facility] | | | and [...] | | | | | [place] [address] | | + + + + + | Najma Krishnamurthy | ECON | Unknown | | + + + + + | Hector Mack | ECON | [address] | | | | | [place] | | | | | [address] | | + + + + + | Najma Sanches | ECON | Unknown | | + + + + + Care Team Providers + +------+ + | Care Family Law Paralegal Name | Role | Phone | + [...] 2018 | Visit | HOSPITAL DERMATOLOGY | BLOCK INSPECTOR [address] | nonspecific skin | | | | CLINIC [address] | [place], | eruption (Primary | | | | DR [place], | [place] [address] | Dx) | | | | [place] [address] | [phone] | | | | | [phone] | | | +--------+---------+ + + + [...] encounter Patient Instructions Patient Instructions Katherine Dixon, MAKE UP ARRANGER - 02/03/2018 2:31 PM PSTThe patient was nurses' association counselor ed regarding the above findings: Please [...] a.m. to 4 p.m. Date Last Reviewed: 03/31/201619998638-9629 [employer]. [address] [place] [address], [place] [address]. All [facility] ts reserved. This information is not intended as a substitute for professional medical care. Always follow your healthcare professional's instructions. documented in this encounter Progress Notes Landen Zimmer, BLOCK INSPECTOR - 02/03/2018 1:15 PM PST Patient Name: [...] A total of 40 minutes was spent [id number] with patient, greater than 50% of which [...] the serv ices I performed. Landen Zimmer, SHORT GOODS DRIER-BC, DCNP documented in this encounter Plan of [...] vs. lupus vs. other. C. Sent to [place] | | | for Dif. R21 (rash [...] component was performed by | | | [facility], [facility], [address] [place] [address] | | | [place], [place] [address] (Polish Maker: Papi Gabriel MD; CLIA# | | | [id number]). Professional interpretation was performed by [facility] [facility] | | | Diagnostics, [facility], [address] | | | [place] [address] (Polish Maker: Spencer Whitley | | | Chey Edmond; CLIA#: [id number]). Professional interpretation | | | of the direct immunofluorescence was performed by [facility], | | | [address] [place] [address] (Polish Maker: | | | Eitan Baig D.O.; CLIA#: [id number]). Diagnostician: | | | Spencer Edmond MD [...]
--- OUTSIDE RECORDS SUMMARY | ~2019-03-03 | XMS | Encounter Summary ---
Demographics + + + | Address | [address] | | | [place] [address] | + + + | Home Phone [...] [place] | | | | | [address] | | + + + + + Care Team Providers + +------+ + | Care Racquet Maker Name | Role | Phone | [...] | | | | | | | [facility] | | | | | | | [place] | | | | | | | [facility] | | | | | | | ([facility]) | | | | | | | [place], | | | | | | | [place] [address] | | | | | | | Phone: | | | | | | | [phone] | | | | | | | Fax: | | | | | | | [phone] | +--------+--------+ + + + + Encounter Details +--------+ + + + + | Date | Type | Department | Care Team | Description | +--------+ + + + + | 09/08/ | Hospital | [facility] [address] | [place], | | | 2008 | Encounter | [address] | [address] | | | | | [address] | [facility] [place] | | | | | [place] | [address] | | | | | ([facility]) | [phone] | | | | | [place], [place] | | | | | | [address] | | | | | | [phone] | | | +--------+ + + + [...] urinate. HAVING A URETERAL STENT: Call: [facility] Urology/Renal Transplant at If you have [...] weeks Follow Up Tests: (Tests at [facility] must be entered into [employer]) Ureteral stent removal Discharge Patient To: Home [...] problems, you can discuss it with your value stream manager and colleagues so that possible temporary [...] this happens, you should contact the urologist congressional assistant for [place]. IS THERE POSSIBILITY OF A URINARY TRACT [...] For medical emergencies, call 911. Call: [facility] Urology/Renal Transplant at If you have [...] weeks Follow Up Tests: (Tests at [facility] must be entered into [facility]) Ureteral stent removal Discharge Patient To: Home Discharging Provider: GAUTAM TAVERAS MD Date Completed: 09/08/2008 [facility] Home Care After CYSTOSCOPY Follow [...] from 8:00 4:30, call the Urology Clinic [phone]. After hours, weekend and holidays call the Hospital Activities Aide at [phone]. Ask for them to page your doctor. [...] | | | | | acid.Performed by [email or web address] | | | | | | [facility],[address] [facility] | | | | | | [place] [address] | | | | | | [phone].[employer] oknalab. | | | | | | [facility], | | | | | | [...] + | [facility] | [address] | [place] [address] | | | PATHOLOGY | [address] [...]
--- OUTSIDE RECORDS SUMMARY | ~2019-03-03 | XMS | Encounter Summary ---
Demographics + + + | Address | [address] | | | [place] [address] | + + + | Home Phone [...] [place] | | | | | [address] | | + + + + + Care Team Providers + +------+ + | Care Service Writer Advisor Name | Role | Phone | [...] | | at [facility] | [facility] | | | | | [address] [facility] | [place] [address] | | | | | [facility] | | | | | | Mailcode: OP12B Isaiah | | | | | | [facility] | | | | | | [place], | | | | | | [place] [address] | | | | | | [phone] | | | +--------+ + + + [...] view image for the detailed interpretation from [employer] results. | CARDIOLOGY | + + + + + + + + | Performing | Address | City/State/Zipcode | Phone Number | | Organization | | | | + + + + + | [facility] | [address] | [place], [place] | | | CARDIOLOGY | [facility] | [address] | | + + + + + documented in this encounter Visit Diagnoses Not on filedocumented in this encounter"
--- OUTSIDE RECORDS SUMMARY | ~2019-03-03 | XMS | Encounter Summary ---
Demographics + + + | Address | [address] | | | [place] [...] [place] | | | | | [address] | | + + + + + Care Team Providers + +------+ + | Care Supervisor Dry Cleaning Name | Role | Phone | + [...] [place] | | | | | | [address] | | | +--------+ + + + [...]
--- OUTSIDE RECORDS SUMMARY | ~2019-03-03 | XMS | Encounter Summary ---
Demographics + + + | Address | [address] | | | [place] [address] | + + + | Home Phone [...] [place] | | | | | [address] | | + + + + + Care Team Providers + +------+ + | Care Sustainable Agriculture Specialist Name | Role | Phone | [...]
--- OUTSIDE RECORDS SUMMARY | ~2019-03-03 | XMS | Encounter Summary ---
Demographics + + + | Address | [address] | | | [place] [address] | + + + | Home Phone [...] [place] | | | | | [address] | | + + + + + Care Team Providers + +------+ + | Care Ops Manager Name | Role | Phone | [...] | | | | | | | [place], [place] | | | | | | | [address] | | | | | | | Phone: | | | | | | | [phone] | | | | | | | Fax: | | | | | | | [phone] | +--------+--------+ + + + + Encounter Details +--------+ + + + + | Date | Type | Department | Care Team | Description | +--------+ + + + + | 05/10/ | Hospital | [facility] [address] | Aysha Blackburn | | | 2008 - | Encounter | CAMPUS Dr Andre Crow MD | | | | | [address]/KPV11 MIMA | | | | 05/11/ | | MONICA [place], | | | | 2008 | | [place] [address] | | | +--------+ + + + [...] from PACU to the wards [facility] On POD#1, the patient [...] clinic a ppointment Call: Plastic surgery resident health safety and environment manager at If you have any of [...] Aysha Blackburn MD, 1 week, please call [phone] for appointment Follow Up Tests: (Tests at [facility] must be entered into Epic) None [...] Discharged Via: Wheelchair Mode of Transportation: Other: [employer] Accompanied by: Staff Transport Company Name: (when applicable) [employer] Phone #: Discharge Nurse: PASQUALE MEYERS RN [...] week for drain removal Lizz Brittany MS4 [address] [place] [address] Kassandra Herman - 05/01 12:00 AM Emily-Germaine brownlee [id number] [facility] REC NUMBER: [id number] NAME : Germaine Heard DATE : 1945 Admit Date: 05/10/2008 Discharge Date: 05/11/2008 PHYSICIAN'S REQUEST FOR HOME HEALTH SERVICES Relevant History: Location to receive services if other than home: Allergies: Height: Weight: Ordering Physician: [address] [place] [address] Physician to follow for ongoing home health orders: PCP Name: PCP Phone: Discharge Need(s): 1. Transportation Discharge Vendor: Medicaid - [place] Discharge Suggested First Visit/Delivery Date: Discharge Service/Equipment: State Wildlife Officer: Oralia Wang documented in this encounter Plan [...] + + + + | PRODUCT | [id number] | | [facility] | | | UNIT [...] + + + | [facility] DEPARTMENT | [address] [facility] | [place] [address] | | | PATHOLOGY | [address] | | | + + + + + | [place] DEPARTMENT OF | [address] [facility] | [place] [address] | | | PATHOLOGY | [address] [...] + + + + | PRODUCT | [id number] | | [facility] | | | UNIT [...] + | [facility] | [address] | [place] [address] | | | PATHOLOGY | [address] | | | + + + + + | [facility] | [facility] | [place] [address] | | | PATHOLOGY | [address] | | | + + + + + OPERATION RECORD (05/10/2008 12:00 AM PST) + + + | Narrative | Performed At | + + + | [id number] | | | [id number] | | | [id number] ARETHA RAE [id number] | | | Date: 05/10/2008 Attending Surgeon: | | | Aysha Blackburn MD Micromatic Hone Operator(s): | | | Lang Pisano M.D. Preoperative [...] hemostasis was ensured. We then placed two 19-Azerbaijani Ruel | | | drains in the [...] | | MD LORIE Arce / PASCUAL [id number] / [id number] / [id number] / D: | | | 05/12/2008 | | + + + + + | Procedure Note | + + | Aysha Blackburn MD - 05/10/2008 12:00 AM [facility] [id number] | | [id number] [facility] | | [id number] Date: 05/10/2008 Attending Surgeon: | | Aysha Blackburn MD Micromatic Hone Operator(s): Lang Pisano M.D. | | Preoperative [...] ensured. We then | | placed two 19-Azerbaijani Ruel drains in the subcutaneous plane. The [...] Crow | | MD LORIE Blackburn / [id number] / [id number] / [id number] / T: 05/12/2008 | | | | [...] w as ensured. We then placed two 19-Azerbaijani Ruel drains in the subcutaneous plane. The [...] | | | | |JAM / | |[id number] / [id number] / [id number] / | | | | | | [...] + +---------+ +------+--------+---+ | morphine 5 mg/mL BUTTON ATTACHING MACHINE OPERATOR infusion | New Bag | 05/10/19 [...]
--- OUTSIDE RECORDS SUMMARY | ~2019-03-03 | XMS | Encounter Summary ---
Demographics + + + | Address | BAD ADDRESS | | | [place] [address] | + + + | Home Phone [...] | Author | [facility] | | | and [place] | + + + | Organization | [facility] | [...] | | | | | [place] [address] | | + + + + + | Najma Krishnamurthy | ECON | Unknown | | + + + + + | Hector Mack | ECON | [address] | | | | | [place] | | | | | [address] | | + + + + + | Najma Sanches | ECON | Unknown | | + + + + + Care Team Providers + +------+ + | Care Flight Engineer Manager Name | Role | Phone | + +------+ + PCP | Unavailable | + +------+ + Encounter Details +--------+ + + + + | Date | Type | Department | Care Team | Description | +--------+ + + + + | 02/18/ | Hospital | [facility] | | | | 2005 | Encounter | MED CTR EMERGENCY | | | | | | CENTER [address] | | | | | | [place], [place] | | | | | | [address] | | | | | | [phone] | | | +--------+ + + + [...]
--- OUTSIDE RECORDS SUMMARY | ~2019-03-03 | XMS | Encounter Summary ---
Demographics + + + | Address | BAD ADDRESS | | | [place] [address] | + + + | Home Phone [...] [facility] | | | and [place] | + + + | Organization | [facility] | | | and [place] | + + + | Address | Unknown | + + + | Phone | Unavailable | + + + Support + + + + + | Name | Relationship | Address | Phone | + + + + + | Hector Mack | ECON | [address] | | | | | [place] [address] | | + + + + + | Najma Krishnamurthy | ECON | Unknown | | + + + + + | Hector Mack | ECON | [address] | | | | | [place] | | | | | [address] | | + + + + + | Najma Sanches | ECON | Unknown | | + + + + + Care Team Providers + +------+ + | Care Bee Raiser Name | Role | Phone | + +------+ + PCP | Unavailable | + +------+ + Encounter Details +--------+ + + + + | Date | Type | Department | Care Team | Description | +--------+ + + + + | 01/21/ | Hospital | [facility] | Lalo Londono MD | | | 2004 | Encounter | MED CTR XRAY [address] | [address] | | | | | [place] | [address] | | | | | [place] [address] | [address] | | | | | [phone] | | | +--------+ + + + [...]
--- OUTSIDE RECORDS SUMMARY | ~2019-03-03 | XMS | Encounter Summary ---
Demographics + + + | Address | [address] | | | [place] [address] | + + + | Home Phone [...] [place] | | | | | [address] | | + + + + + Care Team Providers + +------+ + | Care Retail Office Manager Name | Role | Phone | [...] | | | | | Procedures | [address] | [place] | | | | | CONSULT TO | [facility] | [facility] | | | | | [place] | [place], [place] | CHILDREN | | | | | | [address] | [address] [facility] | | | | | | Phone: | DEACON BYRNE | | | | | | [phone] | [place], | | | | | | Fax: | [place] [address] | | | | | | [phone] | Phone: | | | | | | | [phone] | | | | | | | Fax: | | | | | | | [phone] | +--------+--------+ + + + + Reason [...] Surgery at [facility] [address] | [place], [place] | | | | | [address] | [address] | | | | | Mailcode: [facility] | [phone] | | | | | [facility] | | | | | | and Healing, | | | | | | Building [address], | | | | | | Floor [place], [place] | | | | | | [address] | | | | | | [phone] | | | +--------+---------+ + + + [...] with Dr. Vasquez. She has seen a electronic publications specialist without any change in her rash. She [...] known rash that was seen by a electronic publications specialist, per patient. There was no specific treatab [...]
--- OUTSIDE RECORDS SUMMARY | ~2019-03-03 | XMS | Encounter Summary ---
Demographics + + + | Address | BAD ADDRESS | | | [place] [address] | + + + | Home Phone [...] Author | [facility] | | | and [place]ana | + + + | Organization | [facility] | | | and [place] | + + + | Address | Unknown | + + + | Phone | Unavailable | + + + Support + + + + + | Name | Relationship | Address | Phone | + + + + + | Hector Mack | ECON | [address] | | | | | [place] [address] | | + + + + + | Najma Krishanmurthy | ECON | Unknown | | + + + + + | Hector Mack | ECON | [address] | | | | | [place] | | | | | [address] | | + + + + + | Najma Sanches | ECON | Unknown | | + + + + + Care Team Providers + +------+ + | Care Campus Recruiter Name | Role | Phone | + +------+ + PCP | Unavailable | + +------+ + Encounter Details +--------+ + + + + | Date | Type | Department | Care Team | Description | +--------+ + + + + | 05/17/ | Hospital | [facility] | | | | 1993 | Encounter | MED CTR EMERGENCY | | | | | | CENTER [address] | | | | | | [place] | | | | | | [address] | | | | | | [phone] | | | +--------+ + + + [...]
--- OUTSIDE RECORDS SUMMARY | ~2019-03-03 | XMS | Encounter Summary ---
Demographics + + + | Address | [address] | | | [place] [address] | + + + | Home Phone [...] [place] | | | | | [address] | | + + + + + Care Team Providers + +------+ + | Care Clinical Trainer Name | Role | Phone | + [...] | | | | | | [place] [address] | | | +--------+ + + + [...] | + + | 02/06/2006 11:10 AM [facility] Anesthesia PostOp Report | | | | Patient: GERMAINE CARIAS [facility] Rec: [id number] Sex F Bdate: 1945 | | Date/Time Data | | Entered Into [facility] | | Anesth PostOp | | Surgery Date [id number] 02/06/06 11:10 | | Anesthesiologist OLEG ASCENCIO 02/06/06 11:10 | | Resident Anesthesiolog JULIEN FRYE 02/06/06 11:10 | | | + + documented in this encounter Visit Diagnoses Not on filedocumented in this encounter"
--- OUTSIDE RECORDS SUMMARY | ~2019-03-03 | XMS | Encounter Summary ---
Demographics + + + | Address | BAD ADDRESS | | | [place] [address] | + + + | Home Phone [...] [facility] | | | and [place]ana | + + + | Organization | [facility] | [...] | | | | | [place] [address] | | + + + + + | Najma Krishnamurthy | ECON | Unknown | | + + + + + | Hector Mack | ECON | [address] | | | | | [place] | | | | | [address] | | + + + + + | Najma Sanches | ECON | Unknown | | + + + + + Care Team Providers + +------+ + | Care Food Safety Scientist Name | Role | Phone | + +------+ + PCP | Unavailable | + +------+ + Encounter Details +--------+ + + + + | Date | Type | Department | Care Team | Description | +--------+ + + + + | 08/27/ | Hospital | [facility] | Duarte Moon MD | | | 2012 | Encounter | HOSPITAL RESPIRATORY | [address] | | | | | THERAPY [address] | [place] | | | | | [place] | [address] | | | | | [address] | | | | | | [phone] | | | +--------+ + + + [...]
--- OUTSIDE RECORDS SUMMARY | ~2019-03-03 | XMS | Encounter Summary ---
Demographics + + + | Address | BAD ADDRESS | | | [place] [address] | + + + | Home Phone [...] | Author | [facility] | | | and [place] | + + + | Organization | [facility] | | [...] | | | | | [place] [address] | | + + + + + | Najma Krishnamurthy | ECON | Unknown | | + + + + + | Hector Mack | ECON | [address] | | | | | [place] | | | | | [address] | | + + + + + | Najma Sanches | ECON | Unknown | | + + + + + Care Team Providers + +------+ + | Care Pointing Machine Operator Name | Role | Phone [...] 2018 | Visit | HOSPITAL DERMATOLOGY | DIAMOND CLE[facility]ER [address] | nonspecific skin | | | | CLINIC [address] | [place], | eruption (Primary | | | | DR [place], | [place] [address] | Dx) | | | | [place] [address] | [phone] | | | | | [phone] | | | +--------+---------+ + + + [...] encounter Patient Instructions Patient Instructions Katherine Dixon, MARINE EQUIPMENT DESIGN ENGINEER - 02/03/2018 2:31 PM PSTThe patient was assistant corporation counsel ed regarding the above findings: Please return [...] a.m. to 4 p.m. Date Last Reviewed: 03/31/[id number] [employer]. [address] [place] [address], [place] [address]. All [facility] ts reserved. This information is not intended as a substitute for professional medical care. Always follow your healthcare professional's instructions. documented in this encounter Progress Notes Landen Zimmer, DIAMOND CLEAVER - 02/03/2018 1:15 PM PST Patient Name: [...] A total of 40 minutes was spent brki-il-lpwa with patient, greater than 50% of which [...] the serv ices I performed. Landen Zimmer, SUPERVISOR PHOSPHATIC FERTILIZER-BC, DCNP documented in this encounter Plan of [...] vs. lupus vs. other. C. Sent to [place] | | | for Dif. R21 (rash [...] component was performed by | | | [facility], [address] [place] [address] | | | [place], [place] [address] (Flour Worker: Papi Gabriel MD; CLIA# | | | [id number]). Professional interpretation was performed by [facility] | | | [facility], [facility], [address] | | | [place] [address] (Flour Worker: Spencer Whitley | | | Chey Edmond; CLIA#: [id number]). Professional interpretation | | | of the direct immunofluorescence was performed by [facility], | | | [address] [place] [address] (Flour Worker: | | | Eitan Baig D.O.; CLIA#: [id number]). Diagnostician: | | | Spencer Edmond MD [...]
--- OUTSIDE RECORDS SUMMARY | ~2019-03-03 | XMS | Encounter Summary ---
Demographics + + + | Address | BAD ADDRESS | | | [place] [address] | + + + | Home Phone [...] [facility] | | | and [place] | + + + | Organization | [facility] | | [...] | | | | | [place] [address] | | + + + + + | Najma Krishnamurthy | ECON | Unknown | | + + + + + | Hector Mack | ECON | [address] | | | | | [place] | | | | | [address] | | + + + + + | Najma Sanches | ECON | Unknown | | + + + + + Care Team Providers + +------+ + | Care Chip Frier Name | Role | Phone | + +------+ + PCP | Unavailable | + +------+ + Encounter Details +--------+ + + + + | Date | Type | Department | Care Team | Description | +--------+ + + + + | 06/01/ | Hospital | [facility] | | | | 2005 | Encounter | MED CTR XRAY [address] | | | | | | [address] | | | | | | [place] [address] | | | | | | [phone] | | | +--------+ + + + [...]
--- OUTSIDE RECORDS SUMMARY | ~2019-03-03 | XMS | Encounter Summary ---
Demographics + + + | Address | BAD ADDRESS | | | [place] [address] | + + + | Home Phone | | + + + | Preferred Language | Unknown | + + + | Marital Status | | + + + | Methodist Affiliation | 1077 | + + + | Race | Unknown | + + + | Ethnic Group | Unknown | + + + Author + + + | Author | [facility] | | | and [place] | + + + | Organization | [facility] | | [...] | | | | | [place] [address] | | + + + + + | Najma Krishnamurthy | ECON | Unknown | | + + + + + | Hector Mack | ECON | [address] | | | | | [place] | | | | | [address] | | + + + + + | Najma Sanches | ECON | Unknown | | + + + + + Care Team Providers + +------+ + | Care Pastry Assistant Name | Role | Phone | + +------+ + PCP | Unavailable | + +------+ + Encounter Details +--------+ + + + + | Date | Type | Department | Care Team | Description | +--------+ + + + + | 11/23/ | Hospital | [facility] | Herberth Mayorga | | | 1996 | Encounter | MED CTR XRAY [address] | [place], [place] [address] | | | | | [place] | [place], [place] | | | | | [place] [address] | [address] | | | | | [phone] | [phone] | | | | | | | [...]
--- OUTSIDE RECORDS SUMMARY | ~2019-03-03 | XMS | Encounter Summary ---
Demographics + + + | Address | [address] | | | [place] [address] | + + + | Home Phone [...] [place] | | | | | [address] | | + + + + + Care Team Providers + +------+ + | Care Estimator And Drafter Supervisor Name | Role | Phone | [...] | Mary Becker Mailcode: | Mary Becker [place], | | | | | [address] Physician's | [place] [address] | | | | | [address] | [phone] | | | | | [place], [place] | | | | | | [address] | | | | | | [phone] | | | +--------+---------+ + + + [...] cardiac problems. She smoked, has about a 54-xhxf-vmzf smoking history but has not smoked in [...]
--- OUTSIDE RECORDS SUMMARY | ~2019-03-03 | XMS | Encounter Summary ---
Demographics + + + | Address | [address] | | | [place] [address] | + + + | Home Phone [...] [place] | | | | | [address] | | + + + + + Care Team Providers + +------+ + | Care Data Warehouse Consultant Name | Role | Phone | [...] | Activity | [address] | [address] | | | | | [address] Mailcode: RPB07 | [place], [place] | | | | | [place], [place] | [address] | | | | | [address] | [phone] | | | | | [phone] | | | +--------+ + + + [...]
--- OUTSIDE RECORDS SUMMARY | ~2019-03-03 | XMS | Encounter Summary ---
Demographics + + + | Address | [address] | | | [place] [address] | + + + | Home Phone [...] [place] | | | | | [address] | | + + + + + Care Team Providers + +------+ + | Care Railcar Foreman Name | Role | Phone | + [...] 2005 | Registratio | [address] | [phone] | | | | n | [address] Mailcode: [address] | | | | | | [place], [place] | | | | | | [address] | | | | | | [phone] | | | +--------+ + + + [...]
--- OUTSIDE RECORDS SUMMARY | ~2019-03-03 | XMS | Encounter Summary ---
Demographics + + + | Address | [address] | | | [place] [address] | + + + | Home Phone [...] [place] | | | | | [address] | | + + + + + Care Team Providers + +------+ + | Care Processing Operator Name | Role | Phone | + +------+ + | Tuan Chan MD | PCP | | + +------+ + Encounter Details +--------+ + + + + | Date | Type | Department | Care Team | Description | +--------+ + + + + | 06/25/ | Ancillary | Registration 3181 | Wes Wolff MD | | | 2005 | Registratio | [facility] | [address] | | | | [address] | [address] Mailcode: RPB[address] | [place], [place] | | | | | [place], [place] | [address] | | | | | [address] | [phone] | | | | | [phone] | | | +--------+ + + + [...] [facility] DEPARTMENT | [address] | [place] [address] | | | PATHOLOGY | [address] | | | + + + + + | [facility] DEPARTMENT | [address] | [place] [address] | | | PATHOLOGY | [address] | | | + + + + + PROTHROMBIN TIME (06/25/2005 9:45 AM PST) + + + + + + | Component | Value | Ref Range | Performed | Pathologist | | | | | At | Signature | + + + + + + | INR | 0.90Comment: | 0.90 - 1.20 INR | [facility] | | | | PT INR [...] + | [facility] | [address] [facility] | [place] [address] | | | PATHOLOGY | [address] | | | + + + + + | [facility] | [address] [facility] | [place] [address] | | | PATHOLOGY | [address] [...] Performed At | + + + | [id number] Estimated GFR > 60 mL/min/1.73 sq m if non- | [facility] | | [id number] Estimated GFR > 60 mL/min/1.73 sq m [...] + + | [facility] | [facility] | [place] [address] | | | PATHOLOGY | [address] | | | + + + + + | [facility] | [address] [facility] | [place] [address] | | | PATHOLOGY | [address] | | | + + + + + documented in this encounter Visit Diagnoses Not on filedocumented in this encounter"
--- OUTSIDE RECORDS SUMMARY | ~2019-03-03 | XMS | Encounter Summary ---
Demographics + + + | Address | [address] | | | [place] [address] | + + + | Home Phone [...] [place] | | | | | [address] | | + + + + + Care Team Providers + +------+ + | Care Biology Tutor Name | Role | Phone | + [...] Pranay | | | | | | [address] | [address] | | | | | | [address] | [address] | | | | | | [address] | [place], [place] | | | | | | [place], [place] | [address] | | | | | | [address] | | | | | | | Phone: | | | | | | | [phone] | | | | | | | Fax: | | | | | | | [phone] | | +--------+--------+ + + + + Encounter Details +--------+---------+ + + + | Date | Type | Department | Care Team | Description | +--------+---------+ + + + | 11/20/ | Office | Cardiology - | Pranay Melendez MD | Dysmetabolic | | 2005 | Visit | General [address] [facility] | | Syndrome X; CAD | | | | [address] | | (Coronary Artery | | | | Mailcode: [id number] | | Disease); Sleep | | | | [facility] | | Apnea; Gout; DM Circ | | | | [address] [place], | | Dis Type II, | | | | [place] [address] | | Uncontrolled ([facility]); | | | | [phone] | | Dyslipidemia | +--------+---------+ + + [...] Notes Pranay Melendez - 11/21/2005 9:02 AM [facility] LANIERMs Mack is a morbidly obese woman with [...] risk will be manageable. Furthermore, in the intermediate project manager weigh t loss will afford cardiovascualr prtection. [...] DEPARTMENT OF | [address] | [place] [address] | | | PATHOLOGY | [address] | | | + + + + + | [facility] | [address] | [place] [address] | | | PATHOLOGY | [address] | | | + + + + + documented in this encounter Visit Diagnoses + + | Diagnosis | + + | Dysmetabolic syndrome X Dysmetabolic Syndrome X | + + | CAD (coronary artery disease) Coronary atherosclerosis of unspecified type of vessel, | | cheesh-na or graft | + + | Sleep [...]
--- OUTSIDE RECORDS SUMMARY | ~2019-03-03 | XMS | Encounter Summary ---
Demographics + + + | Address | [address] | | | [place] [address] | + + + | Home Phone [...] [place] | | | | | [address] | | + + + + + Care Team Providers + +------+ + | Care Project Manager Process Development Name | Role | Phone | + [...] | | | | | Stay [address] [facility] | | | | | | [address] | | | | | | Mailcode: [id number] | | | | | | [place] | | | | | | [address] [place], [place] | | | | | | [address] | | | | | | [phone] | | | +--------+ + + + [...]
--- OUTSIDE RECORDS SUMMARY | ~2019-03-03 | XMS | Encounter Summary ---
Demographics + + + | Address | BAD ADDRESS | | | [place] [address] | + + + | Home Phone [...] | Author | [facility] | | | and [place] | + + + | Organization | [facility] | | [...] | | | | | [place] [address] | | + + + + + | Najma Krishnamurthy | ECON | Unknown | | + + + + + | Hector Mack | ECON | [address] | | | | | [place] | | | | | [address] | | + + + + + | Najma Sanches | ECON | Unknown | | + + + + + Care Team Providers + +------+ + | Care Furniture Manager Name | Role | Phone | + +------+ + PCP | Unavailable | + +------+ + Encounter Details +--------+ + + + + | Date | Type | Department | Care Team | Description | +--------+ + + + + | 11/10/ | Hospital | [facility] | Oralia Quinonez | | | 2011 | Encounter | HOSPITAL GROUND | [address] | | | | | [address] [place] | [address] | [place] [address] | | | | | [place], [place] | [phone] | | | | | [address] | | | | | | [phone] | | | +--------+ + + + [...]
--- OUTSIDE RECORDS SUMMARY | ~2019-03-03 | XMS | Encounter Summary ---
Demographics + + + | Address | [address] | | | [place] [address] | + + + | Home Phone [...] [place] | | | | | [address] | | + + + + + Care Team Providers + +------+ + | Care Loss Control Technician Name | Role | Phone [...]
--- OUTSIDE RECORDS SUMMARY | ~2019-03-03 | XMS | Encounter Summary ---
Demographics + + + | Address | [address] | | | [place] [address] | + + + | Home Phone [...] [place] | | | | | [address] | | + + + + + Care Team Providers + +------+ + | Care Filling Machine Set Up Mechanic Name | Role | Phone | + +------+ + | Taun Chan MD | PCP | | + [...] | | | [facility] [address] | | | | | [address] | | | | | | Mailcode: [facility] | | | | | | [facility] | | | | | | and Healing, | | | | | | Building [address], | | | | | | Floor [place], [place] | | | | | | [address] | | | | | | [phone] | | | +--------+---------+ + + + [...]
--- OUTSIDE RECORDS SUMMARY | ~2019-03-03 | XMS | Encounter Summary ---
Demographics + + + | Address | [address] | | | [place] [address] | + + + | Home Phone [...] [place] | | | | | [address] | | + + + + + Care Team Providers + +------+ + | Care Triple Valve Mechanic Name | Role | Phone | [...] | | | | | | Floor [place], [place] | | | | | | [address] | | | | | | [phone] | | | +--------+---------+ + + + [...]
--- OUTSIDE RECORDS SUMMARY | ~2019-03-03 | XMS | Encounter Summary ---
Demographics + + + | Address | BAD ADDRESS | | | [place] [address] | + + + | Home Phone [...] | Author | [facility] | | | and [place] | + + + | Organization | [facility] | | [...] | | | | | [place] [address] | | + + + + + | Najma Krishnamurthy | ECON | Unknown | | + + + + + | Hector Mack | ECON | [address] | | | | | [place] | | | | | [address] | | + + + + + | Najma Sanches | ECON | Unknown | | + + + + + Care Team Providers + +------+ + | Care Hospital Housekeeper Name | Role | Phone | + +------+ + PCP | Unavailable | + +------+ + Encounter Details +--------+ + + + + | Date | Type | Department | Care Team | Description | +--------+ + + + + | 09/07/ | Hospital | [facility] IP | Conversion | Chest pain | | 2012 | Encounter | CONVERSION DE[address] | Transaction, | | | | | [address] | Provider Unknown | | | | | [place], [place] | [phone] | | | | | [address] | | | | | | [phone] | | | +--------+ + + + [...]
--- OUTSIDE RECORDS SUMMARY | ~2019-03-03 | XMS | Encounter Summary ---
Demographics + + + | Address | [address] | | | [place] [address] | + + + | Home Phone [...] [place] | | | | | [address] | | + + + + + Care Team Providers + +------+ + | Care Ticker Wirer Name | Role | Phone | [...]
--- OUTSIDE RECORDS SUMMARY | ~2019-03-03 | XMS | Encounter Summary ---
Demographics + + + | Address | BAD ADDRESS | | | [place] [address] | + + + | Home Phone [...] Author | [facility] | | | and [place] | + + + | Organization | [facility] | | [...] | | | | | [place] [address] | | + + + + + | Najma Krishnamurthy | ECON | Unknown | | + + + + + | Hector Mack | ECON | [address] | | | | | [place] | | | | | [address] | | + + + + + | Najma Sanches | ECON | Unknown | | + + + + + Care Team Providers + +------+ + | Care Nca Certified Concierge Name | Role | Phone | + +------+ + PCP | Unavailable | + +------+ + Encounter Details +--------+ + + + + | Date | Type | Department | Care Team | Description | +--------+ + + + + | 12/03/ | Hospital | [facility] | | | | 1997 - | Encounter | MED CTR MED ONC | | | | | | [address] | | | | 12/11/ | | [place] [address] | | | | 1997 | | [phone] | | | +--------+ + + + [...]
--- OUTSIDE RECORDS SUMMARY | ~2019-03-03 | XMS | Encounter Summary ---
Demographics + + + | Address | BAD ADDRESS | | | [place] [address] | + + + | Home Phone [...] | [facility] | | | and [place] | + + + | Organization | [facility] | | | and [place] | + + + | Address | Unknown | + + + | Phone | Unavailable | + + + Support + + + + + | Name | Relationship | Address | Phone | + + + + + | Hector Mack | ECON | [address] | | | | | [place] [address] | | + + + + + | Najma Krishnamurthy | ECON | Unknown | | + + + + + | Hector Mack | ECON | [address] | | | | | [place] | | | | | [address] | | + + + + + | Najma Sanches | ECON | Unknown | | + + + + + Care Team Providers + +------+ + | Care Battery Tester Name | Role | Phone | + +------+ + PCP | Unavailable | + +------+ + Encounter Details +--------+ + + + + | Date | Type | Department | Care Team | Description | +--------+ + + + + | 07/26/ | Hospital | [facility] | | | | 1996 | Encounter | MED CTR EMERGENCY | | | | | | CENTER [address] | | | | | | [place] | | | | | | [address] | | | | | | [phone] | | | +--------+ + + + [...]
--- OUTSIDE RECORDS SUMMARY | ~2019-03-03 | XMS | Encounter Summary ---
Demographics + + + | Address | BAD ADDRESS | | | [place] [address] | + + + | Home Phone [...] Author | [facility] | | | and [place] | + + + | Organization | [facility] | | | and [place] | + + + | Address | Unknown | + + + | Phone | Unavailable | + + + Support + + + + + | Name | Relationship | Address | Phone | + + + + + | Hector Mack | ECON | [address] | | | | | [place] [address] | | + + + + + | Najma Krishnamurthy | ECON | Unknown | | + + + + + | Hector Mack | ECON | [address] | | | | | [place] | | | | | [address] | | + + + + + | Najma Sanches | ECON | Unknown | | + + + + + Care Team Providers + +------+ + | Care Web Applications Administrator Name | Role | Phone | + +------+ + PCP | Unavailable | + +------+ + Encounter Details +--------+ + + + + | Date | Type | Department | Care Team | Description | +--------+ + + + + | 02/18/ | Hospital | [facility] | | | | 2005 | Encounter | MED CTR EMERGENCY | | | | | | CENTER [address] | | | | | | [place], [place] | | | | | | [address] | | | | | | [phone] | | | +--------+ + + + [...]
--- OUTSIDE RECORDS SUMMARY | ~2019-03-03 | XMS | Encounter Summary ---
Demographics + + + | Address | BAD ADDRESS | | | [place] [address] | + + + | Home Phone [...] | Author | [facility] | | | and [place] | + + + | Organization | [facility] | [...] | | | | | [place] [address] | | + + + + + | Najma Krishnamurthy | ECON | Unknown | | + + + + + | Hector Mack | ECON | [address] | | | | | [place] | | | | | [address] | | + + + + + | Najma Sanches | ECON | Unknown | | + + + + + Care Team Providers + +------+ + | Care Marine Chronometer Assembler Name | Role | Phone | [...] 2018 | | HOSPITAL EMERGENCY | C, PSS DELIVERY PROFESSIONAL [address] | skin eruption | | | | CENTER [address] | [address] [place] | (Primary Dx); Severe | | | | [place] | [address] | uncontrolled | | | | [address] | | hypertension; | | | | [phone] | | Noncompliance with | | | [...] D?MRN: | | | | | | [id number] | | | [id number] | | | ecurit | | | [...] | | | n, | | | Tuna | | | R MD | | [...] | | | St. | | | [place] | | | y | | | [...] | | | [phone] | | | [phone] | | | .These | | | [...] | | | St. | | | [place] | | | y H. | | [...] | | | St. | | | [place] | | | y H. | | [...] | | | St. | | | [place] | | | y | | | [...]
--- OUTSIDE RECORDS SUMMARY | ~2019-03-03 | XMS | Encounter Summary ---
Demographics + + + | Address | BAD ADDRESS | | | [place] [address] | + + + | Home Phone [...] | Author | [facility] | | | and [place] | + + + | Organization | [facility] | [...] | | | | | [place] [address] | | + + + + + | Najma Krishnamurthy | ECON | Unknown | | + + + + + | Hector Mack | ECON | [address] | | | | | [place] | | | | | [address] | | + + + + + | Najma Sanches | ECON | Unknown | | + + + + + Care Team Providers + +------+ + | Care Cop Name | Role | Phone | + +------+ + PCP | Unavailable | + +------+ + Encounter Details +--------+ + + + + | Date | Type | Department | Care Team | Description | +--------+ + + + + | 08/06/ | Hospital | [facility] | Tuan Chan, | LUMBOSACRAL NEURITIS | | 2004 | Encounter | CONVERSION [address]P [address] | MD 2010 | [address] | | | | [address] | [facility], [place] | | | | | [place], [place] | [address] | | | | | [address] | [phone] | | | | | [phone] | | | +--------+ + + + [...]
--- OUTSIDE RECORDS SUMMARY | ~2019-03-03 | XMS | Encounter Summary ---
Demographics + + + | Address | BAD ADDRESS | | | [place] [address] | + + + | Home Phone [...] | Author | [facility] | | | and [place] | + + + | Organization | [facility] | | | and [...] | | | | | [place] [address] | | + + + + + | Najma Krishnamurthy | ECON | Unknown | | + + + + + | Hector Mack | ECON | [address] | | | | | [place] | | | | | [address] | | + + + + + | Najma Sanches | ECON | Unknown | | + + + + + Care Team Providers + +------+ + | Care Religious Education Director Name | Role | Phone | + +------+ + PCP | Unavailable | + +------+ + Encounter Details +--------+ + + + + | Date | Type | Department | Care Team | Description | +--------+ + + + + | 01/24/ | Hospital | [facility] | | | | 1997 - | Encounter | MED CTR MED ONC | | | | | | [address] | | | | 01/27/ | | [place] [address] | | | | 1997 | | [phone] | | | +--------+ + + + [...]
--- OUTSIDE RECORDS SUMMARY | ~2019-03-03 | XMS | Encounter Summary ---
Demographics + + + | [address] | [address] | | | [place] [address] | + + + | Home Phone [...] [place] | | | | | [address] | | + + + + + Care Team Providers + +------+ + | Care Mortgage Analyst Name | Role | Phone | [...] of this encounter Progress Notes Interface, Packaging Inspector In - 05/24/2005 2:07 AM [facility] [id number] 05/23/2005 05/23/2005 [id number] ARETHA RAE [place] [address] [place] [address] or May 23, 2005 Bryan Garza M.D. [address] [place] [address] RE: GERMAINE CARIAS MR #: [id number] Dear Dr. Garza: I saw your patient, Mrs. Germaine Carias in my office on , May 23, 2005. I went over her records and those of Dr. Walker in [place]. This pleasant, obese, 59-year-old female has a [...] junction. Dilation was performed up to a 20-[place] Microvasive balloon, and the patient claims that [...] is unemployed. She smoked, has about a 80-xool-bdgo smoking history but has not smoked in [...] Sincerely, Wes Wolff M.D. Ren / PASCUAL [id number] / [id number] / [id number] / cc: Lalo Walker M.D. [facility] [address] [place] [id number] documented i n this encounter Plan of Treatment Not on filedocumented as of this encounter Visit Diagnoses Not on filedocumented in this encounter"
--- OUTSIDE RECORDS SUMMARY | ~2019-03-03 | XMS | Encounter Summary ---
Demographics + + + | Address | BAD ADDRESS | | | [place] [address] | + + + | Home Phone [...] + | Author | [facility] | | | and [place] | + + + | Organization | [facility] | [...] | | | | | [place] [address] | | + + + + + | Najma Krishnamurthy | ECON | Unknown | | + + + + + | Hector Mack | ECON | [address] | | | | | [place] | | | | | [address] | | + + + + + | Najma Sanches | ECON | Unknown | | + + + + + Care Team Providers + +------+ + | Care Intensive Care Ambulance Paramedic Name | Role | Phone | + [...] | | | | | [address] | | | | 07/23/ | | [place] [address] | | | | 1997 | | [phone] | | | +--------+ + + + [...]
--- OUTSIDE RECORDS SUMMARY | ~2019-03-03 | XMS | Encounter Summary ---
Demographics + + + | Address | [address] | | | [place] [address] | + + + | Home Phone [...] [place] | | | | | [address] | | + + + + + Care Team Providers + +------+ + | Care Legal Biller Name | Role | Phone | + [...] removal) | | | | Surgery at [facility] [address] | | | | | | [address] | | | | | | Mailcode: CH5P | | | | | | [facility] | | | | | | and Healing, | | | | | | Building [address] | | | | | | Floor [place], [place] | | | | | | [address] | | | | | | [phone] | | | +--------+ + + + [...]
--- OUTSIDE RECORDS SUMMARY | ~2019-03-03 | XMS | Encounter Summary ---
Demographics + + + | Address | [address] | | | [place] [address] | + + + | Home Phone [...] [place] | | | | | [address] | | + + + + + Care Team Providers + +------+ + | Care Refuse Laborer Name | Role | Phone | + +------+ + | Tuan Chan MD | PCP | | + +------+ + Encounter Details +--------+ + + + + | Date | Type | Department | Care Team | Description | +--------+ + + + + | 02/13/ | Air Defense Specialist | Urology Fertility | Renato Chow MD | Kidney stones | | 2010 | | [address] | [address] | (Primary Dx) | | | | Mailcode: CH10U | [place], [place] | | | | | [facility] | [address] | | | | | and Healing, | [phone] | | | | | [facility] | | | | | | Floor [place], [place] | | | | | | [address] | | | | | | [phone] | | | +--------+ + + + [...]
--- OUTSIDE RECORDS SUMMARY | ~2019-03-03 | XMS | Encounter Summary ---
Demographics + + + | Address | BAD ADDRESS | | | [place] [address] | + + + | Home Phone | | + + + | Preferred Language | Unknown | + + + | Marital Status | | + + + | Anabaptism Affiliation | 1077 | + + + | Race | Unknown | + + + | Ethnic Group | Unknown | + + + Author + + + | Author | [facility] | | | and [place] | + + + | Organization | [facility] | [...] | | | | | [place] [address] | | + + + + + | Najma Krishnamurthy | ECON | Unknown | | + + + + + | Hector Mack | ECON | [address] | | | | | [place] | | | | | [address] | | + + + + + | Najma Sanches | ECON | Unknown | | + + + + + Care Team Providers + +------+ + | Care Hooker On Name | Role | Phone | + +------+ + PCP | Unavailable | + +------+ + Encounter Details +--------+ + + + + | Date | Type | Department | Care Team | Description | +--------+ + + + + | 04/05/ | Hospital | [facility] | | | | 1996 - | Encounter | MED CTR MED ONC | | | | | | [address] | | | | 04/09/ | | [place] [address] | | | | 1997 | | [phone] | | | +--------+ + + + [...]
--- OUTSIDE RECORDS SUMMARY | ~2019-03-03 | XMS | Encounter Summary ---
Demographics + + + | Address | BAD ADDRESS | | | [place] [address] | + + + | Home Phone [...] | Author | [facility] | | | and [place] | + + + | Organization | [facility] | | [...] | | | | | [place] [address] | | + + + + + | Najma Krishnamurthy | ECON | Unknown | | + + + + + | Hector Mack | ECON | [address] | | | | | [place] | | | | | [address] | | + + + + + | Najma Sanches | ECON | Unknown | | + + + + + Care Team Providers + +------+ + | Care Health Science Specialist Name | Role | Phone | + +------+ + PCP | Unavailable | + +------+ + Encounter Details +--------+ + + + + | Date | Type | Department | Care Team | Description | +--------+ + + + + | 09/26/ | Hospital | [facility] | | | | 1994 - | Encounter | MED CTR MED ONC | | | | | | [address] | | | | 10/04/ | | [place] [address] | | | | 1995 | | [phone] | | | +--------+ + + + [...]
--- OUTSIDE RECORDS SUMMARY | ~2019-03-03 | XMS | Encounter Summary ---
Demographics + + + | Address | [address] | | | [place] [address] | + + + | Home Phone [...] [place] | | | | | [address] | | + + + + + Care Team Providers + +------+ + | Care Currency Examiner Name | Role | Phone | [...] | | | | | Surgery at [facility] [address] [place], [place] | | | | | [address] | [address] | | | | | Mailcode: [facility] | [phone] | | | | | [facility] | | | | | | and Healing, | | | | | | [address] | | | | | | Floor [facility] [place] | | | | | | [address] | | | | | | [phone] | | | +--------+---------+ + + + [...]
--- OUTSIDE RECORDS SUMMARY | ~2019-03-03 | XMS | Encounter Summary ---
Demographics + + + | Address | [address] | | | [place] [address] | + + + | Home Phone [...] [place] | | | | | [address] | | + + + + + Care Team Providers + +------+ + | Care Programming Engineer Name | Role | Phone | [...] [facility] | | | | | | [facility] | | | | | | and [place], | | | | | | [address] | | | | | | Floor [place], [place] | | | | | | [address] | | | | | | [phone] | | | +--------+---------+ + + + [...]
--- OUTSIDE RECORDS SUMMARY | ~2019-03-03 | XMS | Encounter Summary ---
Demographics + + + | Address | BAD ADDRESS | | | [place] [address] | + + + | Home Phone [...] + | Author | [facility] | | | and [place] | + + + | Organization | [facility] | | [...] | | | | | [place] [address] | | + + + + + | Najma Krishnamurthy | ECON | Unknown | | + + + + + | Hector Mack | ECON | [address] | | | | | [place] | | | | | [address] | | + + + + + | Najma Sanches | ECON | Unknown | | + + + + + Care Team Providers + +------+ + | Care Patch Sander Name | Role | Phone | [...] Encounter | H[facility] [address] | [address] | | | | | [address] | [place], [place] | | | | | [place] | [address] | | | | | [address] | [phone] | | | | | [phone] | | | +--------+ + + + [...] multiple projections | | | show near [id number] articulation of the medial compartment. | | [...] Dexa scan evaluation is recommended. JOB #: [id number] | | | Digitally Released by: Wayne [...] | Films in multiple projections show near yayn-jm-[id number] articulation of the | | medial compartment. [...] | | | | | JOB #: [id number] | | Digitally Released by: Wayne Moraes | | | | | | Read By: WAYNE MORAES MD | | Date: 09/02/2016 16:10 | | | + + documented in this encounter Visit Diagnoses Not on filedocumented in this encounter"
--- OUTSIDE RECORDS SUMMARY | ~2019-03-03 | XMS | Encounter Summary ---
Demographics + + + | Address | [address] | | | [place] [address] | + + + | Home Phone [...] [place] | | | | | [address] | | + + + + + Care Team Providers + +------+ + | Care Cell Technician Name | Role | Phone | [...] as of this encounter Discharge Summaries Interface, [place] In - 02/20/2006 2:34 AM [facility] [id number] ARETHA RAE [id number] Admission Date: 02/05/2006 Discharge Date: 02/09/2006 Staff [...] of discharge, she was seen by our senior case manager who assisted her with a voucher for a motel. She will stay in the local area for the next 2 days before returning home to [place]. The patient was seen by Nutrition and [...] Sana Timmons M.D. Chey Escobar M.D. / [id number] / [id number] / [id number] / [id number] E: 02/11/2006 cmw cc: Tuan Chan M.D. FAX: [phone] Reviewed or Edited By Sana Timmons on 02-19-2006 Electronically signed by Herberth Brambila 02-19-2006 11:24:08 AM documented i n this encounter Plan of Treatment Not on filedocumented as of this encounter Visit Diagnoses Not on filedocumented in this encounter"
--- OUTSIDE RECORDS SUMMARY | ~2019-03-03 | XMS | Encounter Summary ---
Demographics + + + | Address | [address] | | | [place] [address] | + + + | Home Phone [...] [place] | | | | | [address] | | + + + + + Care Team Providers + +------+ + | Care Ict Educator Name | Role | Phone | [...] Mailcode: | | | | | | [place], [place] | [address] [facility] | | | | | | [address] | Hospital | | | | | | | [place], [place] | | | | | | | [address] | | | | | | | Phone: | | | | | | | [phone] | | | | | | | Fax: | | | | | | | [phone] | +--------+--------+ + + + + Diagnostic [...] CTA | Socorro Genao MD | alyssa [address] | | | | | HEAD WITH | [address] | | | | | CONTRAST | South | [address] | | | | | | [address] | Mailcode: | | | | | | EDUARDO FLORENTINO | [address] [place] | | | | | | [address] | Hospital | | | | | | Phone: | [place], [place] | | | | | | [phone] | [address] | | | | | | Fax: | Phone: | | | | | | [phone] | [phone] | | | | | | | Fax: | | | | | | | [phone] | +--------+--------+ + + + + Diagnostic [...] Mailcode: | | | | | | [place], [place] | [facility] | | | | | | [address] | [place] | | | | | | Phone: | Research | | | | | | [phone] | [facility] | | | | | | Fax: | [place], [place] | | | | | | [phone] | [address] | | | | | | | Phone: | | | | | | | [phone] | | | | | | | Fax: | | | | | | | [phone] | +--------+--------+ + + + + Reason [...] NE Mother | | | | | [address]/KPV12 MIMA | [facility] | | | [birth year]/ | | MONICA [place], | [place] [address] | | | 2012 | | [place] [address] | [phone] | | | | | [phone] | | | | | | | Chaim Vizcarra MD | | | | | | [address] | | | | | | Mary Becker [place], | | | | | | [place] [address] | | | | | | [phone] | | | | | | | [...] chronic back pain, who tripped on some [employer] cords 10 days prior to admission, in [...] fracture, and she was subsequently transferred to [facility] for escalation of care. On comparison [...] Derm follow-up closer to her home in [place]. Medications: Discharge Medication List as of 04/24/2012 [...] Attending Physician: MD Tuan Sethi MD Neurology Fishing Guide Pager [phone] I saw and evaluated the patient. I agree with the findings and the plan of care as yesika lares in the resident s note. Halley Noriega MD Manager Life Sciences Department of Neurology [facility] DEPARTMENT: Neurology Attending - [id number] Place of Service: [facility] [address] Date of Service: 04/24/2012 CSN: [id number] Suggestive Modifier: GC - Resident Present Suggested CPT: 73962 - Discharge Day mgmt up to 30 [...] to re-consult, any questions. DANIELLE WYNN PA-C [facility] [address] [place] [address] etrona Wynn PA - 04/23/2012 10:44 AM [...] HCT 35.4* 03/13/2011 7:46 AM HCT See [facility] 03/11/2011 5:13 PM WBC 6.8 04/23/2012 7:45 AM WBC 6.4 03/13/2011 7:46 AM WBC See nt 03/11/2011 5:13 PM PLT 209 04/23/2012 7:45 AM PLT 217 03/13/2011 7:46 AM PLT See [facility] 03/11/2011 5:13 PM CULTURE RESULT (no [...] indicated. Final Rep ort Resulted: 03/13/11 RLB ([facility]) [facility] [address] [place] [address] STUDY: SPINE CERVICAL 2 VWS FLEX/EXT 04/22/12 [...] otherw ise intact. Motor 5/5 except LUE crib attendant 4/5 Sensation intact to light touch Assessment [...] collar Will continue to follow. FABIO JACOBSEN-Matty [facility] [address] [address]/[facility] [place] [address] Halley Haddad MD - 04/23/2012 8:37 AM [...] and plan. VERA COOK MD,MPH Neurology Resident [id number] I performed a history and physical examination [...] it requires holding plavix. Halley Noriega MD Manager Life Sciences Department of Neurology [facility] DEPARTMENT: Neurology Attending - [id number] Place of Service: - Date of Service: 04/22/2013 CSN: [id number] Suggestive Modifier: None Suggested CPT: 72692 - Initial Visit, Level 2 Suggested Diagnosis: [...] and face w eakness and referred to [facility] for possible cervical fracture. MRI suggests [...] ridgeSocorro shah MD - 04/22/2012 7:51 AM [facility] NEUROSURGERY PROGRESS NOTE Author: SOCORRO JARRELL [...] Tongue midline Trace left pronator drift Slowed elvrnp-gl-ezvb movements with mild end-point dysmetria 5/5 bilateral [...] - 04/22/2012 7:47 AM PST [facility] Progress Note Team Pager: [phone] Attendin Attending Drop Board Worker: Primary Service Attending: MD Bryan Espinosa MD [...] 0659 04/22/12 07 - 04/23/12 0659 Shift 7618-3744 2237-4626 4965-7053 Daily Total 8117-9991 4503-6055 5910-5936 Daily Total I N T A K [...] therapy once cleared OTHER Dispo Transfer to [facility] pending neuro recs Relevant Risks: This patient is currently at risk for the following: cerebral edema, barry ctrolyte imbalance, hyponatremia and ischemic stroke; acute renal failure, dysphagia, edema, ICU delirium, malnutrition and UTI. This patient has been staffed with Dr. Black, attending physician, who agrees [facility] and plan. Viktoriya Downs MD PGY2 Neurology Pager [phone] documented in t his encounter Plan of [...] MARQUAM | [address] | [place], [place] | | | DEL[facility]IA [facility] SA[facility] | [facility] | [address] | | | TESTS | | | [...] [facility] | [address] | [place] [address] | | | SERVICES, CORE | MARY [...] [facility] | [address] | [place] [address] | | | SERVICES, CORE | PARK [...] + + + + | [facility] | [address] | [place] [address] | | | BLU GUTIERREZ | MARY [...] (H) | 60 - 99 mg/dL | [facility] - | | | GLUCOSE, | [...] [facility] | 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 The patient was seen and examined with | | | the attending physician. We discussed the recommendations listed | | | above. Trevor Sosa M.D. Resident, Department of | | | Dermatology [facility] [place] Attending | | | Physician Attestation I personally interviewed, examined the patient, | | | and discussed management with the resident. I reviewed and edited | | | the resident's note and agree with the documented findings and plan | | | of care. 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 The patient was seen and | | examined with the attending physician. We discussed the recommendations listed | | above.Trevor Sosa M.D.Resident, [facility] | | [place] Attending Physician Yemi personally interviewed, examined the | | patient, and discussed management with the resident. I reviewed and edited the | | resident's note and agree with the documented findings and plan of care. Khoa Lee | | MD Kaleb, PhDAssistant Professor, [facility] | | [facility] DEPARTMENT: [id number] [facility] of Service:- Inpatient Date | | of Service: 04/23/2012 : [id number] Modifier: | | GC Resident Involved: GC Resident InvolvedSuggested CPT: 40972 - Initial, Detailed; Low | | complex [...] to follow-up closer to her home in [place]; would f/u with a press cutter there if not improved on topicals | | | |Please contact us with further questions. The patient was seen and examined with the attend ing physician. We discussed the recommendations listed above. | | | | | |Trevor Sosa M.D. | |Resident, Department of Dermatology | |[facility] | | | |Attending Physician Attestation | |I personally interviewed, examined the patient, and discussed management with the resident. I reviewed and edited the resident's note and agree with the documented findings and plan of care. | | | | | |Khoa Manuel MD, PhD | |Manager Life Sciences, Department of Dermatology | |[facility] | | | |[facility] DEPARTMENT: [id number] [facility] | |Place of Service:[address]- Inpatient | |Date of Service: 04/23/2012 | | | |CSN: [id number] | |Suggested Modifier: GC Resident Involved: GC Resident Involved | |Suggested CPT: 98586 - Initial, Detailed; Low complex 30 min [...] AMY PAPPAS | [address] | [place], [place] | | | DELICIA POINT OF CARE | [address] | [address] | | | TESTS | | | [...] | | + +---------+ + + | [facility] DEPARTMENT OF | | [...] + | [facility] - AIRPORT - | [address] | [place] [address] | | | [place] | | | [...] + | [facility] - | [address] | [place] [address] | | | [place] | | | [...] + | [facility] - | [address] | [place] [address] | | | [place] | | | | + + + [...] [facility] | [address] | [place], [place] | | | MARLEEN NESBITT OF CARE | [address] | [address] | | | TESTS | | | [...] | + + + + + | [facility] - | [address] | [place] [address] | | | [place] | | | [...] | prevalent in the general | | [facility] | | | | population, and in [...] | + + + + + | [facility] - | [address] | [place] [address] | | | [place] | | | [...] if | | | | | | [email or web address] >400: | | | | | | [...] + | [facility] - | [address] | [place] [address] | | | [place] | | | | + + + [...] by | | | | | | [employer],[address] | | | | | | Neri Alvarez, [facility] | | | | | | [address] | | | | | | [phone].[facility]. | | | | | [...] [facility] | [address] | [place], [place] | | | UNIV PTH - INTFC | | [address] | | + + + + + [...] + | [facility] - | [address] | [place] [address] | | | [place] | | | [...] + | [facility] - | [address] | [place] [address] | | | [place] | | | [...] + | [facility] - | [address] | [place] [address] | | | [place] | | | | + + + [...] [facility] | [address] | [place] [address] | | | SERVICES, CORE | PARK [...] + + + + + + | ENGINEERING TEAM SUPERVISOR AB | Negative | Negative | [...] 7.0-10 | SERVICES, | | >10 Abraham ENGINEERING TEAM SUPERVISOR AB U/ml <5.0 5.0-10 | SPECIAL [...] | + + + + + | [facility] | [address] | [place] [address] | | | SERVICES, SPECIAL | MARY [...] | + + + + + | [facility] | [address] | [place] [address] | | | SERVICES, SPECIAL | PARK [...] | + + + + + | [facility] | [address] | [place] [address] | | | SERVICES, CORE | MARY [...] | + + + + + | [facility] | [address] | [place] [address] | | | SERVICES, CORE | MARY [...] | + + + + + | [facility] | [address] | [place] [address] | | | SERVICES, CORE | MARY [...] ELYSE | [address] | [place], [place] | | | CITLALI NESBITT | [facility] | [address] | | | TESTS | | | [...] [facility] | [address] | [place], [place] | | | MARLEEN NESBITT OF CARE | [address] | [address] | | | TESTS | | | [...] | | + +---------+ + + | [facility] DEPARTMENT OF | | [...] P[facility]AS | [address] | [place], [place] | | | MARLEEN [facility]BITT [facility] SAULT | [facility] | [address] | | | TESTS | | | [...] [facility] | [address] | [place] [address] | | | SERVICES, CORE | PARK [...] | + + + + + | [facility] | [address] | [place] [address] | | | SERVICES, CORE | MARY [...] | | | | Final | | [place] | | | | CULTURE RESULT:Multiple | [...] + | [facility] - | [address] | [place] [address] | | | [place] | | | [...] [facility] | [address] | [place] [address] | | | SERVICES, BLU | MARY [...] - ELYSE | [address] | [place] | | | MILLER [facility] SAULT | [address] | [address] | | | TESTS | | | [...] [facility] | [address] | [place] [address] | | | SERVICES, CORE | PARK [...] | + + + + + | [facility] | [address] | [place] [address] | | | SERVICES, | [address] [...] [facility] | [address] | [place] [address] | | | SERVICES, | [address] [...] mech. valves (2.5 - 3.5) INR | LBU GUTIERREZ | + + + + + + + + | Performing | Address | City/State/Zipcode | Phone Number | | Organization | | | | + + + + + | [facility] | [address] | [place] [address] | | | SERVICESBLU | [address] [...] [facility] | [address] | [place] [address] | | | SERVICES, CORE | PARK [...] [facility] | [address] | [place] [address] | | | SERVICES, CORE | MARY [...]
--- OUTSIDE RECORDS SUMMARY | ~2019-03-03 | XMS | Encounter Summary ---
Demographics + + + | Address | [address] | | | [place] [address] | + + + | Home Phone [...] [place] | | | | | [address] | | + + + + + Care Team Providers + +------+ + | Care Bridge Painter Helper Name | Role | Phone [...] 2007 | Activity | [address] | [address] | | | | | Eugenio Mailcode: [id number] | [place], [place] | | | | | [place], [place] | [address] | | | | | [address] | [phone] | | | | | [phone] | | | +--------+ + + + [...]
--- OUTSIDE RECORDS SUMMARY | ~2019-03-03 | XMS | Encounter Summary ---
Demographics + + + | Address | BAD ADDRESS | | | [place] [address] | + + + | Home Phone | | + + + | Preferred Language | Unknown | + + + | Marital Status | | + + + | Zoroastrian Affiliation | 1077 | + + + | Race | Unknown | + + + | Ethnic Group | Unknown | + + + Author + + + | Author | [facility] | | | and Byronana | + + + | Organization | [facility] | | | and [...] | | | | | [place] [address] | | + + + + + | Najma Krishnamurthy | ECON | Unknown | | + + + + + | Hector Blankenship | ECON | [address] | | | | | [place] | | | | | [address] | | + + + + + | Najma Sanches | ECON | Unknown | | + + + + + Care Team Providers + +------+ + | Care Rouge Sifter Name | Role | Phone | + +------+ + | Tuan Chan MD | PCP | | + +------+ + Encounter Details +--------+ + + + + | Date | Type | Department | Care Team | Description | +--------+ + + + + | 08/21/ | Hospital | [facility] | Raphael Durán, | Seizure (HCC); Acute | | 2019 - | Encounter | [facility] | MD Brionna PRUETT | cystitis without | | | | CARE FLOOR [address] | [address] | hematuria; History | | 08/27/ | | [address] | [id number] | of stroke | | 2019 | | [place], [place] | | | | | | [address] | | | | | | [phone] | | | +--------+ + + + [...] 2241 Date of Service: 08/27/181302 Status: Signed Multiple Effect Evaporator Operator: Noe Bolton MD (Physician) [facility] Service: Hospitalist Physician Discharge Summary [...] 6 months ago who was transferred from [facility] because of new onset seizures. She had one episode at home described to be generalized tonic-clonic lasting for 5 minutes with postictal state. In the emergency ro om, she had another witnessed 5-minute tonic-clonic movement. She was loaded with Keppra IV and was given Ativan prior to transfer to [facility]. She is here for further neurologic evalu ate. Of note, the patient was also diagnosed to have UTI and was started on ceftriaxone damian or to transfer to [facility]. According to the daughter, patient [...] t on 08/25/2018. Patient was admitted to [facility] with diagnosis of new onset of [...] ferred to [facility] for further rehab therapy. Additional issues: [...] patient with destination the pharmacy being in [place]. 3. Chronic type II odontoid fracture . [...] > RCA COPD (chronic obstructive pulmonary disease) ([facility]) Hydronephrosis of right kidney Hyperlipidemia Hypertension many years Kidney disease OH (myocardial infarction) ([facility]) 09/05/2012 NSTEMI Morbid obesity ([facility]) weighed over 500 lbs prior to bariatric surgery, lost > 300 lbs Recurrent nephrolithiasis S/P CABG x 4 1998 occluded SVG>RCA; patent CASAS>LAD, patent "Y" seq SVG>D1>OM2 (cath 09/10) S/P PTCA (percutaneous transluminal coronary angioplasty) 3.5x16, 2.75x32 Taxus TRAVIS mid-distal LCx (07/16/03) // 2.5x12 Promus Element TRAVIS R PDA, 3.5 x15 Promus Element TRAVIS distal RCA (09/05/12) Stroke ([facility]) 2013 Right-sided, left facial droop - resolved; mild residual memory deficit Type II diabetes mellitus ([facility]) resolved with weight loss following bariatric surgery [...] Name: GERMAINE BARBOUR Date of : 1945 [facility] Physician: Miky Alamo ____ INDICATIONS Abnormal [...] is no evidence of aortic regurgitation. 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 The [...] 1.6* Disposition: [facility] Follow up: Tuan Chan MD [address] [facility] [id number] Schedule an appointment as soon as possible for a visit For hospitalization re-evaluation ; and further management of short-term memory problems am loree others. Tash Herzog MD [address] [place] [address] [place] [address] Schedule an appointment as soon as [...] These medications were sent to [facility] [facility] [place] - [address] [facility] [address] albuterol 108 (90 Base) MCG/ACT inhaler atorvastatin [...] 08/27/182022 Date of Service: 08/27/181458 Status: Signed Multiple Effect Evaporator Operator: Lisa Lorenzana RN (Registered Nurse) No significant changes from shift assessment. No falls or new signs of skin breakdown. No c omplaints of pain, nausea or SOB. VSS for remainder of shift. WCM End of shift chart check done. Report called to Munira GARDUNO at [place]. IV removed. Transportation arrived. onver gris Transaction, Provider Unknown - 08/27/2018 2:59 PM PDT Case Management by Maria Del Rosario Dorado RN at 08/27/18 5161 Author: Maria Del Rosario Dorado RN Service: (none) Author Type: Registered Nurse Filed: 08/27/18 1539 Date of Service: 08/27/18 8379 Status: Signed Multiple Effect Evaporator Operator: Maria Del Rosario Dorado RN (Registered Nurse) Disposition: [facility] Transportation: [place] transport[place]-[facility] All orders, signed AVS, and prescriptions have been faxed: faxed to Ester @ [facility] [place] paperwork completed Patient and family in agreement with discharge plan Medicare important message (Given or N/A): given Liz Dorado RN,BSN,CM onver gris Transaction, Provider Unknown - 08/27/2018 10:21 AM PDT Therapy Progress Note by Lalo Epstein PTA at 08/27/18 1021 Author: Lalo Epstein PTA Service: (none) Author Type: Fabric Lay Out Worker Filed: 08/27/18 1139 Date of Service: 08/27/18 1021 Status: Signed Multiple Effect Evaporator Operator: Lalo Epstein PTA (Fabric Lay Out Worker) PHYSICAL THERAPY TREATMENT NOTE PT Received On: 08/27/18 Reason for Treatment: Other (comment) (Fall) Requires PT Follow Up: Yes Recommendations: Other (comment), [facility] (memory care facility) Plan Treatment/Interventions: Continue per Primary PT POC Progress: Progressing toward goals Summary Comments: Pt in room with nursing when HEEL CEMENTER arrives, agreeable to therapy. Therapy focused o n increasing activity tolerance, balance activities, and LE strengthening. When pt had 4WW p laced in front of her, she placed her leg up on the seated and tried to climb on the walker when asked to walk. HEEL CEMENTER attempted to have the pt ambulate with 4WW again and determined that it was safer to attempted to ambulate without an AD. Pt demonstrated good stability while a mbulating with MAITRE D'. While performing balance activities pt required frequent reminders of wh at she was doing as her confusion increased with activity. Pt was able to perform seated exe rcises with no increase in pain. Pt would benefit from continued therapy focusing on increas ing activity tolerance, balance activities and LE strengthening. Pt finished therapy in [facility] with all needs met. [...] Alternating, Decreased rosie Assistive Device: Other (Comment) (MAITRE D') BALANCE High Level Balance Side Stepping: Right, [...] Note by Camila Anglin RN at 08/26/18 5672 Author: Camila Anglin RN Service: (none) Author Type: Registered Nurse Filed: 08/26/181815 Date of Service: 08/26/181815 Status: Signed Multiple Effect Evaporator Operator: Camila Anglin RN (Registered Nurse) Chart audit complete. onver gris Transaction, Provider Unknown - 08/26/2018 4:15 PM PDT Case Management by Maria Del Rosario Dorado RN at 08/26/18 161 Author: Maria Del Rosario Dorado RN Service: (none) Author Type: Registered Nurse Filed: 08/26/18 1616 Date of Service: 08/26/181614 Status: Signed Multiple Effect Evaporator Operator: Maria Del Rosario Dorado RN (Registered Nurse) CM informed Ester @ [facility] that pt is NMR for discharge today. CM to f/u tomorro w. onver gris Transaction, Provider Unknown - 08/26/2018 11:43 AM PDT Nurse Progress Note by Bear Russell RN at 08/26/18 1143 Author: Bear Russell RN Service: (none) Author Type: Registered Nurse Filed: 08/26/18 1144 Date of Service: 08/26/18 1143 Status: Signed Multiple Effect Evaporator Operator: Bear Russell RN (Registered Nurse) Report given to SHAAN Jensen who will assume care of this patient. onver gris Transaction, Provider Unknown - 08/26/2018 11:30 AM PDT Pharmacy Note by Jen Vargas RPH at 08/26/18 1130 Author: Jen Vargas RPH Service: Pharmacy Author Type: Pharmacist Filed: 08/26/18 1132 Date of Service: 08/26/18 1130 Status: Signed Multiple Effect Evaporator Operator: Jen Vargas RPH (Pharmacist) Antimicrobial Stewardship [...] therapy which was sta rted at [facility] for UTI. Unsure if cultures from [...] 08/26/182124 Date of Service: 08/26/18811 Status: Addendum Multiple Effect Evaporator Operator: Noe Bolton MD (Physician) Related Notes: Original Note by Noe Bolton MD (Physician) filed at 08/26/182124 [facility] Service: Hospitalist Progress Note Pt: Germaine Blankenship AGE/SEX: 72 y.o. female : 1945 ROOM: 4465/4465-1 " Patient Summary: 72-year-old female with history of hypertension, hyperlipidemia, coronar y artery disease a status post CABG x4, history of alcohol abuse, history of drug use, histo ry of nephrolithiasis, history of recent stroke 6 months ago who was transferred from [facility] because of new onset seizures. She had one episode at home described to be generalized tonic-clonic lasting for 5 minutes with postictal state. In the emergency ro om, she had another witnessed 5-minute tonic-clonic movement. She was loaded with Keppra IV and was given Ativan prior to transfer to [facility]. She is here for further neurologic evalu ate. Of note, the patient was also diagnosed to have UTI and was started on ceftriaxone damian or to transfer to [facility]. 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: Authenticated by: Miky Alamo Report Date/Time: 08-22-2018 [...] > RCA COPD (chronic obstructive pulmonary disease) ([facility]) Hydronephrosis of right kidney Hyperlipidemia Hypertension many years Kidney disease [place] (myocardial infarction) ([facility]) 09/05/2012 NSTEMI Morbid obesity ([facility]) weighed over 500 lbs prior to bariatric surgery, lost > 300 lbs Recurrent nephrolithiasis S/P CABG x 4 1998 occluded SVG>RCA; patent CASAS>LAD, patent "Y" seq SVG>D1>OM2 (cath 09/10) S/P PTCA (percutaneous transluminal coronary angioplasty) 3.5x16, 2.75x32 Taxus TRAVIS mid-distal LCx (07/16/03) // 2.5x12 Promus Element TRAVIS R PDA, 3.5 x15 Promus Element TRAVIS distal RCA (09/05/12) Stroke ([facility]) 2013 Right-sided, left facial droop - resolved; mild residual memory deficit Type II diabetes mellitus ([facility]) resolved with weight loss following bariatric surgery [...] PROBLEM LIST Principal Problem: New onset seizure ([facility]) Active Problems: HTN (hypertension) CAD (coronary artery [...] the original. Nurse Progress Note by Brennan Roas RN at 08/26/18603 Author: Brennan Rosa RN Service: (none) Author Type: Registered Nurse Filed: 08/26/18604 Date of Service: 08/26/18603 Status: Signed Multiple Effect Evaporator Operator: Brennan Rosa RN (Registered Nurse) Pt [...] 08/25/181813 Date of Service: 08/25/181810 Status: Signed Multiple Effect Evaporator Operator: Bear Russell RN (Registered Nurse) Pt [...] 3:56 PM PDT Therapy Progress Note by Noe Guerrero PT at 08/25/18 1556 Author: Neo Guerrero PT Service: (none) Author Type: Physical Therapist Filed: 08/25/18 1629 Date of Service: 08/25/18 1556 Status: Signed Multiple Effect Evaporator Operator: Neo Guerrero PT (Physical Therapist) PHYSICAL [...] Management by Lakshmi Bradshaw RN at 08/25/18 8022 Author: Lakshmi Bradshaw RN Service: (none) Author Type: Registered Nurse Filed: 08/25/18 1220 Date of Service: 08/25/18 1204 Status: Signed Multiple Effect Evaporator Operator: Lakshmi Bradshaw RN (Registered Nurse) Spoke with patient, daughter, and son-in-law who state pt will need to discharge to [facility] in [place], referral sent. Requested a cog eval for baseline, suggested if pt's husba nd no longer wants to be involved in her care that a POA for HC and Finances be established and documented through a public relations representative. currently has pt's Medicaid card, daughter will [...] 1015 Date of Service: 08/25/18902 Status: Signed Multiple Effect Evaporator Operator: Miky Alamo MD (Physician) [facility] Service: Cardiology Progress Note Name of Splunk Developer: Miky Alamo MD I have seen the [...] 08/25/182100 Date of Service: 08/25/18830 Status: Signed Multiple Effect Evaporator Operator: Noe Bolton MD (Physician) [facility] Service: Hospitalist Progress Note Pt: Germaine Jesus Jenni Blankenship AGE/SEX: 72 y.o. female : 1945 ROOM: [facility] " Patient Summary: 72-year-old female with history of hypertension, hyperlipidemia, coronar y artery disease a status post CABG x4, history of alcohol abuse, history of drug use, histo ry of nephrolithiasis, history of recent stroke 6 months ago who was transferred from [facility] because of new onset seizures. She had one episode at home described to be generalized tonic-clonic lasting for 5 minutes with postictal state. In the emergency ro om, she had another witnessed 5-minute tonic-clonic movement. She was loaded with Keppra IV and was given Ativan prior to transfer to [facility]. She is here for further neurologic evalu ate. Of note, the patient was also diagnosed to have UTI and was started on ceftriaxone damian or to transfer to [facility]. 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 Continue ceftriaxone. Review urine cultures from [facility]. 7. Hypokalemia this resolved. [...] 015 Date of Service: 08/25/18146 Status: Signed Multiple Effect Evaporator Operator: Hamida Mccann RN (Registered Nurse) Pt. Impulsive, does well distraction coloring and watching movies, sponge bath pt. washed u p while sitting in chair. Chart review completed onver gris Transaction, Provider Unknown - 08/24/2018 5:39 PM PDT Nurse Progress Note by Radhames Armando RN at 08/24/18 5284 Author: Radhames Armando RN Service: (none) Author Type: Registered Nurse Filed: 08/24/18 174 Date of Service: 08/24/18 146 Status: Signed Multiple Effect Evaporator Operator: Radhames Armando RN (Registered Nurse) Patient [...] Service: Neurology Author Type: Physician Filed: 08/24/18 3551 Date of Service: 08/24/181208 Status: Signed Multiple Effect Evaporator Operator: Tash Herzog MD (Physician) [facility] Service: Neurology Progress Note Hospital [...] ? Patient was initially see n at [facility] at [place], reportedly had a grand mal seizure at [...] Date of Service: 08/24/18 1052 Status: Signed Multiple Effect Evaporator Operator: Miky Alamo MD (Physician) [facility] Service: Cardiology Progress Note Name of Splunk Developer: Miky Alamo MD I have seen the [...] 0917 Date of Service: 08/24/18724 Status: Signed Multiple Effect Evaporator Operator: Jeremías Diop MD (Physician) [facility] Service: Hospitalist Progress Note Hospital Day: LOS: 3 days SUBJECTIVE Patient Summary: 72-year-old female with history of hypertension, hyperlipidemia, joss nary artery disease a status post CABG x4, history of alcohol abuse, history of drug use, hi story of nephrolithiasis, history of recent stroke 6 months ago who was transferred from [facility] because of new onset seizures. She had one episode at home described to be generalized tonic-clonic lasting for 5 minutes with postictal state. In the emergency room, she had another witnessed 5-minute tonic-clonic movement. She was loaded with Keppra IV and was given Ativan prior to transfer to [facility]. She is here for further neurologic ev aluate. Of note, the patient was also diagnosed to have UTI and was started on ceftriaxone prior to transfer to [facility]. According to the daughter, patient has not been seen by her regular primary care phys ician for the past 1 and half years. Reportedly, she had a stroke 6 months ago and since, h as been having progressive functional decline. [facility]. [...] Continue ceftriaxone. Will follow-up urine culture from [facility]. Requests have been sent 08/23/2009. Hypokalemia Potassium [...] Disposition: Inpatient. 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 onver gris Transaction, Provider Unknown - 08/23/2018 6:39 PM PDT Nurse Progress Note by Talita Brock RN at 08/23/181838 Author: Talita Brock RN Service: (none) Author Type: Registered Nurse Filed: 08/23/181843 Date of Service: 08/23/181838 Status: Signed Multiple Effect Evaporator Operator: Talita Brock RN (Registered Nurse) 1830 [...] Notes by Jeremías Diop MD at 08/23/18 0961 Author: Jeremías Diop MD Service: Hospitalist Author Type: Physician Filed: 08/23/18 1201 Date of Service: 08/23/18942 Status: Addendum Multiple Effect Evaporator Operator: Jeremías Diop MD (Physician) Related Notes: Original Note by Jeremías Diop MD (Physician) filed at 08/23/18 1533 [facility] Service: Hospitalist Progress Note Hospital Day: LOS: 2 days SUBJECTIVE Patient Summary: 72-year-old female with history of hypertension, hyperlipidemia, joss nary artery disease a status post CABG x4, history of alcohol abuse, history of drug use, hi story of nephrolithiasis, history of recent stroke 6 months ago who was transferred from [facility] because of new onset seizures. She had one episode at home described to be generalized tonic-clonic lasting for 5 minutes with postictal state. In the emergency room, she had another witnessed 5-minute tonic-clonic movement. She was loaded with Keppra IV and was given Ativan prior to transfer to [facility]. She is here for further neurologic ev aluate. Of note, the patient was also diagnosed to have UTI and was started on ceftriaxone prior to transfer to [facility]. According to the daughter, patient [...] Continue ceftriaxone. Will follow-up urine culture from [facility] Requests have been sent. Hypokalemia [...] Disposition: Inpatient. 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 Personal communication requested for any clarification. JEREMÍAS DIOP MD 08/23/2018 9:43 AM Miky Escobar MD - 08/23/2018 8:09 AM PDT Progress Notes by Miky Alamo MD at 08/23/18808 Author: Miky Alamo MD Service: Cardiology Author Type: Physician Filed: 08/23/18837 Date of Service: 08/23/18808 Status: Signed Multiple Effect Evaporator Operator: Miky Alamo MD (Physician) [facility] Service: Cardiology Progress Note Name of Splunk Developer: Miky Alamo MD I have seen the patient on 08/23/2018 still having episodes of paroxysmal atrial fibrillatio n. SUBJECTIVE Denies any complains. Current Facility-Administered Medications: acetaminophen (TYLENOL) tablet 650 mg, 650 mg, Oral, Q6H PRN OR acetaminophen (TYL ENOL) suppository 650 mg, 650 mg, Rectal, Q6H PRN, Rapheal Durán MD albuterol (PROVENTIL HFA;VENTOLIN HFA) inhaler, [...] Note by Natalie Castillo RN at 08/23/18 0759 Author: Natalie Castillo RN Service: (none) Author Type: Registered Nurse Filed: 08/23/18 08 Date of Service: 08/23/18752 Status: Signed Multiple Effect Evaporator Operator: Natalie Castillo RN (Registered Nurse) Pt [...] Notes by Rhonda An RD at 08/22/18 1159 Author: Rhonda An RD Service: (none) Author Type: Registered Dietitian Filed: 08/22/18 115 Date of Service: 08/22/181155 Status: Signed Multiple Effect Evaporator Operator: Rhonda An RD (Registered Dietitian) 08/22/18 [...] (Mouth to Rectum) On modified diet per BAG MACHINE HELPER. Pt denies chewing or swallowi ng [...] Recommendations Recommended energy needs Continue diet per BAG MACHINE HELPER. House trays. Supplements available if nee [...] 1428 Date of Service: 08/22/18901 Status: Signed Multiple Effect Evaporator Operator: Jeremías Diop MD (Physician) [facility] Service: Hospitalist Progress Note Hospital Day: LOS: 1 day SUBJECTIVE Patient Summary: 72-year-old female with history of hypertension, hyperlipidemia, joss nary artery disease a status post CABG x4, history of alcohol abuse, history of drug use, hi story of nephrolithiasis, history of recent stroke 6 months ago who was transferred from [facility] because of new onset seizures. She had one episode at home described to be generalized tonic-clonic lasting for 5 minutes with postictal state. In the emergency room, she had another witnessed 5-minute tonic-clonic movement. She was loaded with Keppra IV and was given Ativan prior to transfer to [facility]. She is here for further neurologic ev aluate. Of note, the patient was also diagnosed to have UTI and was started on ceftriaxone prior to transfer to [facility]. According to the daughter, patient [...] Continue ceftriaxone. Will follow-up urine culture from [facility]. Hypokalemia Potassium replacement protocol ordered. Atrial fibrillation [...] Disposition: Inpatient. 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 Personal communication requested for any clarification. JEREMÍAS DIOP MD 08/22/2018 9:02 AM onversion Transactio n, Provider Unknown - 08/22/2018 7:03 AM PDT Nurse Progress Note by Natalie Castillo RN at 08/22/18702 Author: Natalie Castillo RN Service: (none) Author Type: Registered Nurse Filed: 08/22/18799 Date of Service: 08/22/18702 Status: Signed Multiple Effect Evaporator Operator: Natalie Castillo RN (Registered Nurse) Pt's [...] 08/21/181907 Date of Service: 08/21/181900 Status: Signed Multiple Effect Evaporator Operator: Susan Buckner RN (Registered Nurse) Post [...] Note by Susan Buckner RN at 08/21/18 8658 Author: Susan Buckner RN Service: (none) Author Type: Registered Nurse Filed: 08/21/18 1606 Date of Service: 08/21/181543 Status: Signed Multiple Effect Evaporator Operator: Susan Buckner RN (Registered Nurse) Pt [...] Management by Blanca Calvert RN at 08/21/18 6838 Author: Blanca Calvert RN Service: (none) Author Type: Registered Nurse Filed: 08/21/18 9159 Date of Service: 08/21/18 1150 Status: Signed Multiple Effect Evaporator Operator: Blanca Calvert RN (Registered Nurse) Met with pt, daughter and daughter's spouse, daughter answered CM's questions, pt was unabl e to participate. Per daughter pt was only released from [facility], ~ 2 mths ago, she was transferred t here from [facility] after having a stroke, she [...] mile awar for showers. Pt has a case management assistant Scarlett [phone], who will be back in office on Friday. She is rec eiving caregiving services, she is not sure the number of hours she is receiving. Caregiver s are from [employer]. Per daughter because of her poor living conditions, they has recently found her a Group [facility] e/[facility], but pt refused, did not want to leave her . They are now in the process of tr sherly to find a place for a couple. She requires assistance with dressing and showering, does not use DME. She takes Plavix daily. She is not participating in outpatient medical services, no home oxygen, cpap, dialysis or home health. 08/21/18 1145 Discharge Planning Evaluation Admitting Diagnosis New onset [...] (Receives caregiving services through [facility], [place].) Caregiver after Discharge No Mental Status Unable to answer questions (Daughter answered CM's questions, pt was sleeping.) Power of Health Care Liaison No Anticipated Discharge Plan Post Acute Care Needs Other (comment) (TBD) Plan communicated to patient/family Yes Resources Financial concerns No Transportation issues No Patient/Family concerns Yes (Daughter and her spouse expressed concern about pt's living conditions.) Prescription Plan Yes Name of Pharmacy [facility] [place] Previous home health equipment No Vascular access device No Ostomy/Drains/Appliances No Anticipated Disposition Facility Type Other (Comment) Pt is a 72 y.o., female Patient's PCP is: Daughter is working on trying to find her a new PCP. Patient's insurance: Medicare/Medicaid [place]. Coverage concerns: None. Medication coverage/concerns: Yes/None. Community resources utilized / needed: [facility] [phone]. Assistance in transportation: TBD. Identification of any specific education / training: None. Barriers to Discharge / Alternative housing needed: Anticipated DCP: TBD pending clinical course. BLANCA CALVERT RN,. onver gris [employer], Provider Unknown - 08/21/2018 9:46 AM PDT Progress Notes by Silas Gomez RPH at 08/21/18945 Author: Silas Gomez RPH Service: Pharmacy Author Type: Pharmacist Filed: 08/21/18945 Date of Service: 08/21/18945 Status: Signed Multiple Effect Evaporator Operator: Silas Gomez RPH (Pharmacist) Clinical Pharmacy [...] renal function and adjust accordingly. Silas Gomez [facility] 08/21/2018 9:46 AM Laura Haas Speech Pathologist - 08/21/2018 8:26 AM PDTFormatting of this note might be diff erent from the original. Therapy Progress Note by Laura Cisneros MS CCC-BAG MACHINE HELPER at 08/21/18825 Author: Laura Cisneros MS CCC-BAG MACHINE HELPER Service: (none) Author Type: Speech and Language Pat hologist Filed: 08/21/18826 Date of Service: 08/21/18825 Status: Signed Multiple Effect Evaporator Operator: Laura Cisneros MS CCC-BAG MACHINE HELPER (Speech and Language Pathologist) 08/21/18799 BAG MACHINE HELPER Last Visit BAG MACHINE HELPER Received On 08/21/18 Requires BAG MACHINE HELPER Follow Up On hold Attempted, but pt is somnolent and not able to wake for RN. RN to call if she becomes alert and appropriate to participate in evaluation. Laura Cisneros MS CCC-BAG MACHINE HELPER 08/21/18 8:27 AM Jeremías Taveras MD - 08/21/2018 8:00 AM PDT Progress Notes by Jeremías Diop MD at 08/21/18799 Author: Jeremías Diop MD Service: Hospitalist Author Type: Physician Filed: 08/21/18 0405 Date of Service: 08/21/18799 Status: Addendum Multiple Effect Evaporator Operator: Jeremías Diop MD (Physician) Related Notes: Original Note by Jeremías Diop MD (Physician) filed at 08/21/18 0015 [facility] Service: Hospitalist Progress Note Hospital Day: LOS: 0 days SUBJECTIVE Patient Summary: 72-year-old female with history of hypertension, hyperlipidemia, joss nary artery disease a status post CABG x4, history of nephrolithiasis, history of recent str arsen 6 months ago who was transferred from [facility] because of new onset seiz ures. She had one episode at home described to be generalized tonic-clonic lasting for 5 mi nutes with postictal state. In the emergency room, she had another witnessed 5-minute tonic -clonic movement. She was loaded with Keppra IV and was given Ativan prior to transfer to [facility]. She is here for further neurologic evaluate. Of note, the patient was also diagnose d to have UTI and was started on ceftriaxone prior to transfer to [facility]. According to the daughter, patient has not been seen by her regular primary care phys icishawna for the past 1 and half years. Reportedly, she had a stroke 6 months ago and since, h as been having progressive functional decline. She was supposed to go to a long-term care [facility] but patient eventually declined this. [...] Continue ceftriaxone. Will follow-up urine culture from [facility]. DVT prophylaxis: In place. GI prophylaxis: In place. Disposition: Inpatient. 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, [employer], used which may contain error for similar [...] EXTERNAL | | | | performed at [facility], [address] | | LAB | | | | [address], | | | | | | [place] [address] | | | | + + + [...] | | | | | [place] [address] | | | | + + + [...] EXTERNAL | | | | performed at [facility], [address] | | LAB | | | | [address], | | | | | | [place] [address] | | | | + + + [...] | | | | | performed at [facility], [address] | | | | | | [facility], | | | | | | [place] [address] | | | | + + + [...] EXTERNAL | | | | performed at [facility];[address] | mmol/L | LAB | | | | [address];[place], [place] | | | | | | [address] | | | | + + + [...] EXTERNAL | | | | performed at [facility];[address] | | LAB | | | | [address];[place] | | | | | | [address] | | | | + + + [...] EXTERNAL | | | | performed at [facility];[address] | | LAB | | | | [address];[place], [place] | | | | | | [address] | | | | + + + [...] EXTERNAL | | | | performed at [facility];[address] | | LAB | | | | [address];[place], [place] | | | | | | [address] | | | | + + + [...] | | | | | performed at [facility];[address] | | | | | | [facility];[place], [place] | | | | | | [address] | | | | + + + [...] | | | | | performed at [facility], [address] | | | | | | [facility], | | | | | | [place] [address] | | | | + + + [...] EXTERNAL | | | | performed at [facility];[address] | mmol/L | LAB | | | | [address];[place], [place] | | | | | | [address] | | | | + + + [...] TR maxP.27 mmHg TR Vmax: 2.35 m/s Aircraft Loadmaster Superintendent: | | | Authenticated by: Miky Mohrscottsdale Report Date/Time: 08-22-2018 | | | 14:38:8 | | + + + + + | Procedure Note | + + | Javier Gay Conversion - 11/10/2018 7:55 PM PDT Patient Name: JENNI BLANKENSHIP, | | SALLYDate of : 1945 Performing Physician: Miky | | [facility] INDICATIONS------ | | -----Abnormal EKG CONCLUSIONS [...] mlLAESV Index (A-L): 66.54 ml/m2LAAs A2C: 29.59 de6DNHLK A-L A2C: 105.11 | | mlLALs A2C: 7.07 cmLAAs A4C: 32.97 qg8CNVTC A-L A4C: 119.49 mlLALs A4C: 7.72 | | cmTAPSE: 1.59 cmHR: 48.54 BPMAV maxP.21 mmHgAV meanP.37 mmHgAV Vmax: | | 1.24 m/Brenton Vmean: 0.86 m/Brenton VTI: 33.73 cmAVA Vmax: 1.92 cm2AVA (VTI): 1.95 | | sy7HQBL Vmax: 0.00 cm2/m2AVAI (VTI): 0.00 cm2/m2LVCI Dopp: 1.81 l/jspe2KWWI Dopp: | | 3.19 l/minHR: 48.32 BPMLVOT [...] | | 22.27 mmHgTR Vmax: 2.35 m/s Aircraft Loadmaster Superintendent: Edinsonticated by: Miky Gill | | Date/Time: [...] cm | |ANATOLIY Vmax: 1.92 cm2 | |ANATOLYI (VTI): 1.95 cm2 | |AVAI Vmax: 0.00 [...] |TR Vmax: 2.35 m/s | | | |Aircraft Loadmaster Superintendent: | |Authenticated by: Miky Alamo | |Report [...] | | | Basophils | performed at [facility];[address] | K/uL | LAB | | | | [address];[place] | | | | | | [address] | | | | + + + [...] EXTERNAL | | | | performed at [facility];[address] | | LAB | | | | [address];[place], [place] | | | | | | [address] | | | | + + + [...] EXTERNAL | | | | performed at [facility];[address] | | LAB | | | | [address];[place] | | | | | | [address] | | | | + + + [...] | | | | | performed at [facility];[address] | | | | | | [address];[place], [place] | | | | | | [address] | | | | + + + [...] + | Negative hip. Signed by: Chey Curz, Jonathon Sign Date/Time: | | | 08/21/2018 [...] most advanced at C5-6.Signed by: Chey Dorantes, [facility] Date/Time: | | 08/21/2018 5:52 PM [...] EXTERNAL | | | | performed at [facility];[address] | mmol/L | LAB | | | | [address] [facility];[place], [place] | | | | | | [address] | | | | + + + [...] | | | Estimate | performed at [facility];[address] | | LAB | | | | [address];[place], [place] | | | | | | [address] | | | | + + + [...] EXTERNAL | | | | performed at [facility];[address] | mmol/L | LAB | | | | [address];[place] | | | | | | [address] | | | | + + + [...] | | | | | performed at [facility];[address] | | | | | | [address];[place], [place] | | | | | | [address] | | | | + + + [...]
--- OUTSIDE RECORDS SUMMARY | ~2019-03-03 | XMS | Encounter Summary ---
Demographics + + + | Address | [address] | | | [place] [address] | + + + | Home Phone [...] [place] | | | | | [address] | | + + + + + Care Team Providers + +------+ + | Care Vessel Engineer Name | Role | Phone | [...] | | | | | Surgery at [facility] [address] | | | | | | [address] | | | | | | Mailcode: [facility] | | | | | | [facility] | | | | | | and Healing, | | | | | | Building [address] 5th | | | | | | Floor [place], [place] | | | | | | [address] | | | | | | [phone] | | | +--------+---------+ + + + [...]
--- OUTSIDE RECORDS SUMMARY | ~2019-03-03 | XMS | Encounter Summary ---
Demographics + + + | Address | [address] | | | [place] [address] | + + + | Home Phone [...] + | Hetcor Mack | ECON | [address] | | | | | [place] | | | | | [address] | | + + + + + Care Team Providers + +------+ + | Care Quality Control Associate Name | Role | Phone | [...] [id number] | | | | | | [place], [place] | | | | | | [address] | | | | | | [phone] | | | +--------+ + + + [...] DEPARTMENT OF | [address] | [place] [address] | | | PATHOLOGY | [address] | | | + + + + + | [place] DEPARTMENT OF | [address] [facility] | [place] [address] | | | PATHOLOGY | [address] [...] Performed At | + + + | [id number] Estimated GFR > 60 mL/min/1.73 sq m if non- | [facility] | | [id number] Estimated GFR > 60 mL/min/1.73 sq m [...] + | [facility] DEPARTMENT OF | [address] [facility] | [place] [address] | | | PATHOLOGY | [address] | | | + + + + + | [facility] DEPARTMENT OF | [address] [facility] | [place] [address] | | | PATHOLOGY | [address] [...] + + + + + | [facility] | [address] [facility] | [place] [address] | | | PATHOLOGY | [address] | | | + + + + + | [facility] | [address] [facility] | [place] [address] | | | PATHOLOGY | [address] | | | + + + + + documented in this encounter Visit Diagnoses Not on filedocumented in this encounter"
--- OUTSIDE RECORDS SUMMARY | ~2019-03-03 | XMS | Encounter Summary ---
Demographics + + + | Address | [address] [place] [address] | | | [place] [address] | + + + | Home Phone [...] [place] | | | | | [address] | | + + + + + Care Team Providers + +------+ + | Care Machine Stacker Name | Role | Phone | + [...] 2007 | Activity | [address] | [address] | | | | | Eugenio Mailcode: [address] | [place], [place] | | | | | [place], [place] | [address] | | | | | [address] | [phone] | | | | | [phone] | | | +--------+ + + + [...]
--- OUTSIDE RECORDS SUMMARY | ~2019-03-03 | XMS | Encounter Summary ---
Demographics + + + | Address | BAD ADDRESS | | | [place] [address] | + + + | Home Phone [...] Author | [facility] [...] | | | | | [place] [address] | | + + + + + | Najma Krishnamurthy | ECON | Unknown | | + + + + + | Hector Mack | ECON | [address] | | | | | [place] | | | | | [address] | | + + + + + | Najma Sanches | ECON | Unknown | | + + + + + Care Team Providers + +------+ + | Care Rad Tech Name | Role | Phone | + +------+ + PCP | Unavailable | + +------+ + Encounter Details +--------+ + + + + | Date | Type | Department | Care Team | Description | +--------+ + + + + | 07/25/ | Hospital | [facility] | | | | 1996 | Encounter | [facility] EM[facility]Y | | | | | | CENTER [address] | | | | | | [place] | | | | | | [address] | | | | | | [phone] | | | +--------+ + + + [...]
--- OUTSIDE RECORDS SUMMARY | ~2019-03-03 | XMS | Encounter Summary ---
Demographics + + + | Address | BAD ADDRESS | | | [place] [address] | + + + | Home Phone [...] | [facility] | | | and [place] | + + + | Organization | [facility] | [...] | | | | | [place] [address] | | + + + + + | Najma Krishnamurthy | ECON | Unknown | | + + + + + | Hector Mack | ECON | [address] | | | | | [place] | | | | | [address] | | + + + + + | Najma Sanches | ECON | Unknown | | + + + + + Care Team Providers + +------+ + | Care Software Recruiter Name | Role | Phone | + +------+ + | Tuan Chan MD | PCP | | + +------+ + Encounter Details +--------+---------+ + + + | Date | Type | Department | Care Team | Description | +--------+---------+ + + + | 06/10/ | Surgery | [facility] | Leandra Chávez, | CV DIAGNOSTIC | | 2016 | | MED CTR CV INTRA OP | [address] | CARDIAC CATH | | | | [address] | [place] | | | | | [place] | [address] | | | | | [address] | | | | | | [phone] | | | +--------+---------+ + + + [...] Unstable angina . She was transferred from [facility] with ongoing chest pain. Today at lunch time she developed chest discomfort. She was preparing lunch at the time. T he discomfort was sharp and stabbing. She was transferred from [facility] on NTG and heparin. The transfer took about 8 hours. The pain has not gone away. She was started on NTG drip a nd heparin. NTG was titrated up. She arrived here on 30 mcg/ min. She still had 4/10 pain . She had no acute ECG changes. She had some dyspnea and diaphoresis no radiation. She was taken to the cath lab manager due to ongoing chest pain: PROCEDURES PERFORMED: [...] was performed in multiple views using 6 Prydeinig JL5 and 5 F AL1 and an [...] medication that helps the stomach empty better. 1187-[address] [employer] [place] [address], [place] [address]. All righ ts reserved. This information is [...] PROVIDER: | | | Tuan Chan MD BAND BOOKER: Dr. Leandra Chávez MD, | | | [facility], [facility] PRE-PROCEDURE DIAGNOSIS: Unstable Angina | | [...] multiple views | | | using 6 Prydeinig JL5 and 5 F AL1 and an JESUS diagnostic catheters. | | | A 5 lithuanian pigtail catheter was advanced into the left [...] RECOMMENDATIONS Continue medical Rx Leandra Chávez MD, [facility], | | | [facility] DATE/TIME: 06/12/2015 0:27 | | | 06/12/2015 0:27 Portions of this chart were created with [employer] | | | voice recognition software. Occasional [...] [address] | [place] | [phone] | | [facility] | | [address] | | | - LABORATORY | | [...] | | | | ERWIN MORALES MD ([id number]) | | | | | | on [...] + | [facility] | [address] | [place] | [phone] | | [facility] | | [address] | | | - LABORATORY | | [...] + | [facility] | [address] | [place] | [phone] | | [facility] | | [address] | | | - LABORATORY | | [...] | mL/min/1.73m2 | [facility] | | | [place] | RATE,ESTIMATED | | MEDICAL | | | | mL/min/1.53t5Ngft than | | CENTER - | | [...] [address] | [place] | [phone] | | [facility] | | [address] | | | - LABORATORY | | [...] [address] | [place] | [phone] | | [facility] | | [address] | | | - LABORATORY | | [...] + | [facility] | [address] | [place] | [phone] | | [facility] | | [address] | | | - LABORATORY | | [...] [address] | [place] | [phone] | | [facility] | | [address] | | | - LABORATORY | | | | + + + + + documented in this encounter Visit Diagnoses Not on filedocumented in this encounter
--- OUTSIDE RECORDS SUMMARY | ~2019-03-03 | XMS | Encounter Summary ---
Demographics + + + | Address | BAD ADDRESS | | | [place] [address] | + + + | Home Phone [...] Author | [facility] | | | and [place] | + + + | Organization | [facility] [...] | | | | | [place] [address] | | + + + + + | Najma Krishnamurthy | ECON | Unknown | | + + + + + | Hector Mack | ECON | [address] | | | | | [place] | | | | | [address] | | + + + + + | Najma Sanches | ECON | Unknown | | + + + + + Care Team Providers + +------+ + | Care Off Track Betting Manager Name | Role | Phone | + +------+ + PCP | Unavailable | + +------+ + Encounter Details +--------+ + + + + | Date | Type | Department | Care Team | Description | +--------+ + + + + | 11/10/ | Hospital | [facility] | Oralia Quinonez | | | 2011 | Encounter | HOSPITAL GROUND | MD [address] | | | | | AMBUL[address] [place] | | | [address] | [place] [address] | | | | | [place], [place] | [phone] | | | | | [address] | | | | | | [phone] | | | +--------+ + + + [...]
--- OUTSIDE RECORDS SUMMARY | ~2019-03-03 | XMS | Encounter Summary ---
Demographics + + + | Address | [address] | | | [place] [address] | + + + | Home Phone [...] [place] | | | | | [address] | | + + + + + Care Team Providers + +------+ + | Care Hide Handler Name | Role | Phone | [...] | | | | | | [address] [place], [place] | | | | | | [address] | | | | | | [phone] | | | +--------+---------+ + + + [...] of surgical weight loss procedure. Scheduled for [facility] on 02/05/06 Last 1 Wt Readings: Date: [...] has been cleared for surgery by her fx artist, Dr. Melendez. She states she has completed dietary consultation and psychological evaluation in [facility]. Those records have been requested. Current [...] REFLUX DISEASE) SLEEP APNEA Past Surgical History: [place] CABG, VEIN, FOUR HX APPENDECTOMY HX CHOLECYSTECTOMY [...]
--- OUTSIDE RECORDS SUMMARY | ~2019-03-03 | XMS | Encounter Summary ---
Demographics + + + | Address | BAD ADDRESS | | | [place] [address] | + + + | Home Phone [...] + | Author | [facility] | | | and [place] | + + + | Organization | [facility] | | [...] | | | | | [place] [address] | | + + + + + | Najma Krishnamurthy | ECON | Unknown | | + + + + + | Hector Mack | ECON | [address] | | | | | [place] | | | | | [address] | | + + + + + | Najma Sanches | ECON | Unknown | | + + + + + Care Team Providers + +------+ + | Care Lead Web Application Developer Name | Role | Phone | [...] + + | 01/08/ | Telephone | [facility] | Liseth Cuevas RN | ED Follow-up | | 2017 | | HOSPITAL EMERGENCY | | | | | | [address] | | | | | | [place], [place] | | | | | | [address] | | | | | | [phone] | | | +--------+ + + + [...]
--- OUTSIDE RECORDS SUMMARY | ~2019-03-03 | XMS | Encounter Summary ---
Demographics + + + | Address | [address] | | | [place] [address] | + + + | Home Phone [...] [place] | | | | | [address] | | + + + + + Care Team Providers + +------+ + | Care Vegetable Picker Name | Role | Phone | + +------+ + | Tuan Chan MD | PCP | | + +------+ + Encounter Details +--------+ + + + + | Date | Type | Department | Care Team | Description | +--------+ + + + + | 08/05/ | Results | Dermatology | Khoa Manuel, | | | 2008 | Only | Medical at [facility] 16 | ,PhD Gloria | | | | | Floor [address] | Allergy Asthma | | | | | [place] Mailcode: CH16D | Dermatology [address] | | | | | [facility] | [facility] | | | | | and Healing, | [place] [address] | | | | | [facility] | [phone] | | | | | Floor [place], [place] | | | | | | [address] | | | | | | [phone] | | | +--------+ + + + [...] | + +--------+ + + + | DERMATOPATHOLOGY([facility] Routin | 08/05/2008 | | Results for this | | [facility]) | e | | | procedure are [...] | | | | | MNT) | [id number] | | | | | | DESCRIPTION:Punch [...] + + + | [facility] | [address], [address] | [place] [address] | | | DERMATOPATHOLOGY | [address] | | | + + + + + documented in this encounter Visit Diagnoses Not on filedocumented in this encounter"
--- OUTSIDE RECORDS SUMMARY | ~2019-03-03 | XMS | Encounter Summary ---
Demographics + + + | Address | [address] | | | [place] [address] | + + + | Home Phone [...] [place] | | | | | [address] | | + + + + + Care Team Providers + +------+ + | Care Drill Press Operator Helper Name | Role | Phone [...] | Mary Becker Mailcode: | Mary Becker [place], | | | | | [address] Physician's | [place] [address] | | | | | [address] | [phone] | | | | | [place], [place] | | | | | | [address] | | | | | | [phone] | | | +--------+ + + + [...] | | + +---------+ + + | [facility] DEPARTMENT OF | | | | | RADIOLOGY | | | | + +---------+ + + documented in this encounter Visit Diagnoses Not on filedocumented in this encounter"
--- OUTSIDE RECORDS SUMMARY | ~2019-03-03 | XMS | Encounter Summary ---
Demographics + + + | Address | BAD ADDRESS | | | [place] [address] | + + + | Home Phone [...] | Author | [facility] | | | and [place] | + + + | Organization | [facility] | | | [...] | | | | | [place] [address] | | + + + + + | Najma Krishnamurthy | ECON | Unknown | | + + + + + | Hector Mack | ECON | [address] | | | | | [place] | | | | | [address] | | + + + + + | Najma Sanches | ECON | Unknown | | + + + + + Care Team Providers + +------+ + | Care Retail Event Assistant Name | Role | Phone | [...] + + | 01/08/ | Telephone | [facility] | Liseth Cuevas RN | ED Follow-up | | 2017 | | HOSPITAL EMERGENCY | | | | | | [address] | | | | | | [place], [place] | | | | | | [address] | | | | | | [phone] | | | +--------+ + + + [...]
--- OUTSIDE RECORDS SUMMARY | ~2019-03-03 | XMS | Clinical Summary ---
Demographics + + + | Address | [address] | | | [place] [address] | + + + | Home Phone [...] + + + | Author | [facility] | + + + | Organization | [facility] | + + + | Address | Unknown | + + + | Phone | Unavailable | + + + Support + + + + + | Name | Relationship | Address | Phone | + + + + + | Hector Mack | ECON | [address] | | | | | [place] | | | | | [address] | | + + + + + Care Team Providers + +------+ + | Care Cash Applications Manager Name | Role | Phone | + +------+ + | Tuan Chan MD | PCP | | + +------+ + Source Comments AMY is fully live on both [facility] Ambulatory and [facility] InPatient.[facility] Allergies + + + + + [...] | | | | | | | [address] | | + +--------+ +--------+ + +--------+ | MEDICAID [place] | OHP | xxxxxxxx | 07/01/19 | [phone] | [address] | Medica | | | PLUS | | 10-Pre | 6 | [address] | id | | | OPEN | | sent | | [place] | | | | CARD | | | | [address] | | + +--------+ +--------+ + +--------+ [...] demetrius | | | 4 (Home) | [address] | + +--------+ +--------+ + + Advance Directives + + + + + | Type | Date Recorded | Patient | Explanation | | | | Or First Assist Registered Nurse | | + + + + + | Advance | | | | | Directives and | | | | | Living Will | | | | + + + + + | Power of | | | | | Supervising Chef | | | | + + + [...]
--- OUTSIDE RECORDS SUMMARY | ~2019-03-03 | XMS | Encounter Summary ---
Demographics + + + | Address | [address] | | | [place] [address] | + + + | Home Phone [...] [place] | | | | | [address] | | + + + + + Care Team Providers + +------+ + | Care Sports Book Writer Name | Role | Phone | [...] 01/14/ | Office | Preoperative | 1, [facility] Tea Leaf Reader [address] | Panniculitis; CAD | | 2007 | Visit | Medicine Clinic at | [facility] [address] | (Coronary Artery | | | | [facility] 4th Floor [address] | [place] [address] | Disease); DM Circ | | | | [address] | | Dis Type II, | | | | Mailcode: CH4S | | Uncontrolled (HCC); | | | | [facility] | | Other Specified | | | | and Healing, | | Pre-Operative | | | | Building 1,4th Floor | | Examination | | | | [place], [place] | | | | | | [address] | | | | | | [phone] | | | +--------+---------+ + + + [...] | [place] DEPARTMENT OF | [address] | [place] [address] | | | PATHOLOGY | [address] | | | + + + + + | [place] DEPARTMENT OF | [address] | [place] [address] | | | PATHOLOGY | [address] [...] [facility] DEPARTMENT OF | [address] | [place] [address] | | | PATHOLOGY | [address] | | | + + + + + | [facility] DEPARTMENT OF | [address] | [place] [address] | | | PATHOLOGY | [address] [...] [facility] DEPARTMENT OF | [address] | [place] [address] | | | PATHOLOGY | [address] | | | + + + + + | [facility] DEPARTMENT OF | [address] | [place] [address] | | | PATHOLOGY | [address] [...] | + + + + + | [facility] | [address] | [place] [address] | | | PATHOLOGY | [address] | | | + + + + + | [facility] | [address] | [place] [address] | | | PATHOLOGY | [address] [...] Performed At | + + + | [id number] Estimated GFR > 60 mL/min/1.73 sq m if non- | [facility] | | Chilean [id number] Estimated GFR > 60 mL/min/1.73 sq m if | DEPARTMENT OF | | [place]an GFR is estimated using the MDRD equation [...] | + + + + + | [facility] | [address] | [place] [address] | | | PATHOLOGY | [address] | | | + + + + + | [facility] DEPARTMENT OF | [address] | [place] [address] | | | PATHOLOGY | [address] [...] DEPARTMENT OF | [address] | [place] [address] | | | PATHOLOGY | [address] | | | + + + + + | [facility] DEPARTMENT | [address] | [place] [address] | | | PATHOLOGY | [address] [...] view image for the detailed interpretation from InSpeak With Me results. | CARDIOLOGY | | | | + + + + + + + + | Performing | Address | City/State/Zipcode | Phone Number | | Organization | | | | + + + + + | [facility] DEPT OF | [address] | [place], [place] | | | CARDIOLOGY | [facility] | [address] | | + + + + + | [facility] DEPT OF | [address] | [place], [place] | | | CARDIOLOGY | [facility] | [address] | | + + + + + documented in this encounter Visit Diagnoses + + | Diagnosis | + + | Panniculitis Panniculitis, unspecified site | + + | CAD (coronary artery disease) Coronary atherosclerosis of unspecified type of vessel, | | chene[place] or graft | + + | Type II or unspecified type diabetes mellitus with peripheral circulatory disorders, | | uncontrolled(250.72) Type II or unspecified type diabetes mellitus with peripheral | | circulatory disorders, uncontrolled | + + | Other specified pre-operative examination | + + documented in this encounter
--- OUTSIDE RECORDS SUMMARY | ~2019-03-03 | XMS | Encounter Summary ---
Demographics + + + | Address | [address] | | | [place] [address] | + + + | Home Phone [...] [place] | | | | | [address] | | + + + + + Care Team Providers + +------+ + | Care Orthotics Assistant Name | Role | Phone | [...] | Eugenio Mailcode: RPB07 | [address] [place], | | | | | [place], [place] | [place] [address] | | | | | [address] | [phone] | | | | | [phone] | | | +--------+ + + + [...]
--- OUTSIDE RECORDS SUMMARY | ~2019-03-03 | XMS | Encounter Summary ---
Demographics + + + | Address | [address] | | | [place] [address] | + + + | Home Phone [...] [place] | | | | | [address] | | + + + + + Care Team Providers + +------+ + | Care Pony Roll Finisher Name | Role | Phone | [...] 01/14/ | Office | Preoperative | 1, 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 [address] | Panniculitis; CAD | | 2007 | Visit | Medicine Clinic at | [facility] [address] | (Coronary Artery | | | | [facility] 4th Floor [address] | [place] [address] | Disease); DM Circ | | | | [address] | | Dis Type II, | | | | Mailcode: CH4S | | Uncontrolled (HCC); | | | | [facility] | | Other Specified | | | | and Healing, | | Pre-Operative | | | | Building 1,4th Floor | | Examination | | | | [place], [place] | | | | | | [address] | | | | | | [phone] | | | +--------+---------+ + + + [...] | + + +--------+ + + | MO COLLECTION VENOUS | Procedures | Routin | [...] [place] DEPARTMENT OF | [address] [facility] | [place] [address] | | | PATHOLOGY | [address] | | | + + + + + | [place] DEPARTMENT OF | [address] [facility] | [place] [address] | | | PATHOLOGY | [address] [...] [facility] DEPARTMENT OF | [address] | [place] [address] | | | PATHOLOGY | [address] | | | + + + + + | [facility] DEPARTMENT OF | [address] | [place] [address] | | | PATHOLOGY | [address] [...] [facility] DEPARTMENT OF | [address] | [place] [address] | | | PATHOLOGY | [address] | | | + + + + + | [facility] DEPARTMENT OF | [address] | [place] [address] | | | PATHOLOGY | [address] [...] + + + | [facility] | [address] [facility] | [place] [address] | | | PATHOLOGY | [address] | | | + + + + + | [facility] | [address] [facility] | [place] [address] | | | PATHOLOGY | [address] [...] Performed At | + + + | [id number] Estimated GFR > 60 mL/min/1.73 sq m if non- | [facility] | | Salvadorean [id number] Estimated GFR > 60 mL/min/1.73 sq m if | DEPARTMENT OF | | Salvadorean GFR is estimated using the MDRD equation [...] + + + | [facility] | [address] [facility] | [place] [address] | | | PATHOLOGY | [address] | | | + + + + + | [facility] DEPARTMENT OF | [address] | [place] [address] | | | PATHOLOGY | [address] [...] DEPARTMENT OF | [address] | [place] [address] | | | PATHOLOGY | [address] | | | + + + + + | [facility] DEPARTMENT | [address] | [place] [address] | | | PATHOLOGY | [address] [...] view image for the detailed interpretation from InProNerve results. | CARDIOLOGY | | | | + + + + + + + + | Performing | Address | City/State/Zipcode | Phone Number | | Organization | | | | + + + + + | [facility] DEPT OF | [address] | [place], [place] | | | CARDIOLOGY | [facility] | [address] | | + + + + + | [facility] DEPT OF | [address] | [place], [place] | | | CARDIOLOGY | [facility] | [address] | | + + + + + documented in this encounter Visit Diagnoses + + | Diagnosis | + + | Panniculitis Panniculitis, unspecified site | + + | CAD (coronary artery disease) Coronary atherosclerosis of unspecified type of vessel, | | [place] or graft | + + | Type II or unspecified type diabetes mellitus with peripheral circulatory disorders, | | uncontrolled(250.72) Type II or unspecified type diabetes mellitus with peripheral | | circulatory disorders, uncontrolled | + + | Other specified pre-operative examination | + + documented in this encounter
--- OUTSIDE RECORDS SUMMARY | ~2019-03-03 | XMS | Encounter Summary ---
Demographics + + + | Address | [address] | | | [place] [address] | + + + | Home Phone [...] [place] | | | | | [address] | | + + + + + Care Team Providers + +------+ + | Care Tile And Mottle Supervisor Name | Role | Phone | [...] as of this encounter Progress Notes Interface, Compliance Investigator In - 11/28/2005 2:08 AM PDT [id number] ARETHA RAE [id number] Clinic Date: 11/22/2005 Clinic: GENERAL [facility]INIC [...] conference presentation. Herberth Ayala M.D. Chelsie / [id number] / [id number] / [id number] / [id number] Electronically signed by Herberth Brambila 11-27-2005 02:01:34 PM documented i n this encounter Plan of Treatment Not on filedocumented as of this encounter Visit Diagnoses Not on filedocumented in this encounter"
--- OUTSIDE RECORDS SUMMARY | ~2019-03-03 | XMS | Encounter Summary ---
Demographics + + + | Address | [address] | | | [place] [address] | + + + | Home Phone [...] [place] | | | | | [address] | | + + + + + Care Team Providers + +------+ + | Care Dry Chain Offbearer Name | Role | Phone | [...] | Mary Becker Mailcode: | Mary Becker [place], | | | | | [address] Physician's | [place] [address] | | | | | [address] | [phone] | | | | | [place], [place] | | | | | | [address] | | | | | | [phone] | | | +--------+ + + + [...]
--- OUTSIDE RECORDS SUMMARY | ~2019-03-03 | XMS | Encounter Summary ---
Demographics + + + | Address | BAD ADDRESS | | | [place] [address] | + + + | Home Phone [...] | Author | [facility] | | | and Byronana | + + + | Organization | [facility] | [...] | | | | | [place] [address] | | + + + + + | Najma Krishnamurthy | ECON | Unknown | | + + + + + | Hector Mack | ECON | [address] | | | | | [place] | | | | | [address] | | + + + + + | Najma Sanches | ECON | Unknown | | + + + + + Care Team Providers + +------+ + | Care Veneer Marker Name | Role | Phone | + [...] [address] | | | | [address] | [facility] | | | | | [address] [place] | [place], [place] | | | | | [address] | [address] | | | | | [phone] | [phone] | | | | | | | [...]
--- OUTSIDE RECORDS SUMMARY | ~2019-03-03 | XMS | Encounter Summary ---
Demographics + + + | Address | BAD ADDRESS | | | [place] [address] | + + + | Home Phone [...] | Author | [facility] | | | and Byronana | + + + | Organization | [facility] | | | and [...] | | | | | [place] [address] | | + + + + + | Najma Krishnamurthy | ECON | Unknown | | + + + + + | Hector Mack | ECON | [address] | | | | | [place] | | | | | [address] | | + + + + + | Najma Sanches | ECON | Unknown | | + + + + + Care Team Providers + +------+ + | Care Vocational Rehabilitation Technician Name | Role | Phone | + +------+ + PCP | Unavailable | + +------+ + Encounter Details +--------+ + + + + | Date | Type | Department | Care Team | Description | +--------+ + + + + | 04/27/ | Hospital | [facility] | | | | 1997 - | Encounter | MED CTR CARDIAC | | | | | | SERVICES [address] | | | | 06/16/ | | [place], | | | | 1997 | | [place] [address] | | | +--------+ + + + [...]
--- OUTSIDE RECORDS SUMMARY | ~2019-03-03 | XMS | Clinical Summary ---
Demographics + + + | Address | BAD ADDRESS | | | [place] [address] | + + + | Home Phone [...] Author | [facility] | | | and Byronana | + + + | Organization | [facility] | | | [...] | | | | | [place] [address] | | + + + + + | Najma Krishnamurthy | ECON | Unknown | | + + + + + | Hector Mack | ECON | [address] | | | | | [place] | | | | | [address] | | + + + + + | Najma Sanches | ECON | Unknown | | + + + + + Care Team Providers + +------+ + | Care Percussion Welding Machine Operator Name | Role | Phone [...] | 04/27/2014 | + + + | [place] (myocardial infarction) | 09/05/2012 | + + [...] +--------+ +---------+--------+ | MEDICARE | MEDICA | [id number] | 05/29/18 | [phone] | | Medica | | | RE | | 94-Pre | 5 | | re | | | PART A | | sent | | | | | | AND B | | | | | | + +--------+ +--------+ +---------+--------+ | MEDICARE | MEDICA | [id number] | 05/29/18 | [phone] | | Medica | | | RE | | 94-Pre | 5 | | re | | | PART A | | sent | | | | | | AND B | | | | | | + +--------+ +--------+ +---------+--------+ | MEDICARE | MEDICA | [id number] | 05/29/18 | [phone] | | Medica | | | RE | | 94-Pre | 5 | | re | | | PART A | | sent | | | | | | AND B | | | | | | + +--------+ +--------+ +---------+--------+ | [employer]AN | MODA | [id number] | 03/31/19 | [phone] | | Medica | | MEDICAID HMO | HEALTH | | 19-Pre | 1 | | id | | | MDCD | | sent | | | | | | [place] | | | | | | + +--------+ +--------+ +---------+--------+ | [place]ID [place] | MEDICA | [id number] | | [phone] | | [place] | | | ID [place] | | 016-Pr | 2 | | id | | | PLUS | | esent | | | | + +--------+ +--------+ +---------+--------+ | [place]ID [place] | MEDICA | [id number] | | [phone] | | Medica | | | ID [...] D | al/Fam | | 1946 | [phone] | [place] [address] | | | demetrius | | | 1 (Home) | | + +--------+ +--------+ + + | Germaine Ugalde | Person | Self [birth year] | BAD ADDRESS | | D | al/Fam | | 1946 | [phone] | [place] [address] | | | demetrius | | | 1 (Home) | | + +--------+ +--------+ + + | Germaine Ugalde | Person | Self | [birth year] | | [address] | | D | al/Fam | | 1946 | [phone] | [place] [address] | | | demetrius | | | 1 (Home) | | + +--------+ +--------+ + + | Germaine Ugalde | Person | Self | [birth year] | | BAD ADDRESS | | D | al/Fam | | 1946 | [phone] | [place] [address] | | | demetrius | | | 1 (Home) | | + +--------+ +--------+ + + Advance Directives + + + + + | Type | Date Recorded | Patient | Explanation | | | | Supervisor Audit Clerks | | + + + + + | Power of | | | | | Refinery Process Engineer | | | | + + [...]
--- OUTSIDE RECORDS SUMMARY | ~2019-03-03 | XMS | Encounter Summary ---
Demographics + + + | Address | [address] | | | [place] [address] | + + + | Home Phone [...] [place] | | | | | [address] | | + + + + + Care Team Providers + +------+ + | Care Or Manager Name | Role | Phone | [...] [place] | | | | | | [address] | | | +--------+ + + + [...]
--- OUTSIDE RECORDS SUMMARY | ~2019-03-03 | XMS | Encounter Summary ---
Demographics + + + | Address | BAD ADDRESS | | | [place] [address] | + + + | Home Phone [...] Author | [facility] | | | and Byronana | + + + | Organization | [facility] | | [...] | | | | | [place] [address] | | + + + + + | Najma Krishnamurthy | ECON | Unknown | | + + + + + | Hector Mack | ECON | [address] | | | | | [place] | | | | | [address] | | + + + + + | Najma Sanches | ECON | Unknown | | + + + + + Care Team Providers + +------+ + | Care Printed Circuit Boards Laminator Name | Role | Phone | + +------+ + PCP | Unavailable | + +------+ + Encounter Details +--------+ + + + + | Date | Type | Department | Care Team | Description | +--------+ + + + + | 04/22/ | Hospital | [facility] | Conversion | Pain | | 2012 | Encounter | CONVERSION DEP [address] | Transaction, | | | | | [address]DA [address] | Provider Unknown | | | | | [place], [place] | [phone] | | | | | [address] | | | | | | [phone] | | | +--------+ + + + [...]
--- OUTSIDE RECORDS SUMMARY | ~2019-03-03 | XMS | Encounter Summary ---
Demographics + + + | Address | BAD ADDRESS | | | [place] [address] | + + + | Home Phone [...] Author | [facility] | | | and Byronana | + + + | Organization | [facility] [...] | | | | | [place] [address] | | + + + + + | Najma Krishnamurthy | ECON | Unknown | | + + + + + | Hector Mack | ECON | [address] | | | | | [place] | | | | | [address] | | + + + + + | Najma Sanches | ECON | Unknown | | + + + + + Care Team Providers + +------+ + | Care Lumber Yard Worker Name | Role | Phone | + +------+ + PCP | Unavailable | + +------+ + Encounter Details +--------+ + + + + | Date | Type | Department | Care Team | Description | +--------+ + + + + | 04/14/ | Hospital | [facility] | Trevor Keating | | | 2000 - | Encounter | HEART MED CTR | Jesús Oseguera J Jesus | | | | | CARDIAC TRANSPLANT | SHAYLA HOGAN | | | 04/21/ | | [address] | [place] | | | 2000 | | [place] | [address] | | | | | [address] | [phone] | | | | | [phone] | | | | | | | [...]
--- OUTSIDE RECORDS SUMMARY | ~2019-03-03 | XMS | Encounter Summary ---
Demographics + + + | Address | [address] | | | [place] [address] | + + + | Home Phone [...] [place] | | | | | [address] | | + + + + + Care Team Providers + +------+ + | Care Electromechanical Technician Name | Role | Phone | [...] [place] | | | | | | [place], [place] | | | | | | [address] | | | | | | [phone] | | | +--------+------+ + + + [...] + + documented in this encounter Results [facility] - BASIC METABOLIC SET (03/11/2011 [...] + + + | Test performed by: [facility] | [facility] | | Outpatient Lab [address] [place], [place] [address] | DEPARTMENT OF | | | PATHOLOGY | + + + + + + + + | Performing | Address | City/State/Zipcode | Phone Number | | Organization | | | | + + + + + | [facility] | [address] | [place] [address] | | | PATHOLOGY | [address] [...] + + + | Test performed by: [facility] | [place] | | Outpatient Lab [facility] [address] [place], [place] [address] | DEPARTMENT OF | | Sent to Core Lab. | PATHOLOGY | + + + + + + + + | Performing | Address | City/State/Zipcode | Phone Number | | Organization | | | | + + + + + | [facility] | [address] | [place] [address] | | | PATHOLOGY | [address] | | | + + + + + documented in this encounter Visit Diagnoses + + | Diagnosis | + + | Kidney stone Calculus of kidney | + + documented in this encounter"
--- OUTSIDE RECORDS SUMMARY | ~2019-03-03 | XMS | Encounter Summary ---
Demographics + + + | Address | [address] | | | [place] [address] | + + + | Home Phone [...] [place] | | | | | [address] | | + + + + + Care Team Providers + +------+ + | Care Head Of Music Name | Role | Phone | + [...] | Mary Becker Mailcode: | Mary Becker [place], | | | | | [address] Physician's | [place] [address] | | | | | [address] | [phone] | | | | | [place], [place] | | | | | | [address] | | | | | | [phone] | | | +--------+---------+ + + + [...] cardiac problems. She smoked, has about a 37-scfg-ufkg smoking history but has not smoked in [...]
--- OUTSIDE RECORDS SUMMARY | ~2019-03-03 | XMS | Encounter Summary ---
Demographics + + + | Address | BAD ADDRESS | | | [place] [address] | + + + | Home Phone [...] | Author | [facility] | | | and Byronana | + + + | Organization | [facility] [...] | | | | | [place] [address] | | + + + + + | Najma Krishnamurthy | ECON | Unknown | | + + + + + | Hector Mack | ECON | [address] | | | | | [place] | | | | | [address] | | + + + + + | Najma Sanches | ECON | Unknown | | + + + + + Care Team Providers + +------+ + | Care Punch Press Operator Helper Name | Role | Phone | + +------+ + PCP | Unavailable | + +------+ + Encounter Details +--------+ + + + + | Date | Type | Department | Care Team | Description | +--------+ + + + + | 01/16/ | Hospital | [facility] | | | | 2000 | Encounter | MED CTR XRAY [address] | | | | | | [address]cca [address] | | | | | | [place] [address] | | | | | | [phone] | | | +--------+ + + + [...]
--- OUTSIDE RECORDS SUMMARY | ~2019-03-03 | XMS | Encounter Summary ---
Demographics + + + | Address | [address] | | | [place] [address] | + + + | Home Phone [...] [place] | | | | | [address] | | + + + + + Care Team Providers + +------+ + | Care Stereotyper Helper Name | Role | Phone | [...] | Office | Preoperative | 1, [facility] [address] | Other Specified | | 2007 | Visit | Medicine Clinic at | [facility] [address] | Pre-Operative | | | | [facility] 4th Floor [address] | [place] [address] | Examination (Primary | | | | [address] | | Dx) | | | | Mailcode: CH4S | | | | | | [facility] | | | | | | and Healing, | | | | | | Building 1,4th Floor | | | | | | [place], [place] | | | | | | [address] | | | | | | [phone] | | | +--------+---------+ + + + [...] | + + + + + | [facility] DEPARTMENT OF | [address] | [place] [address] | | | PATHOLOGY | [address] | | | + + + + + | [facility] DEPARTMENT OF | [address] | [place] [address] | | | PATHOLOGY | [address] [...] Performed At | + + + | [id number] Estimated GFR = 48 mL/min/1.73 sq m if non- | [facility] | | [id number] Estimated GFR = 59 mL/min/1.73 sq m [...] + + | [facility] | [address] | [place] [address] | | | PATHOLOGY | [address] | | | + + + + + | [facility] DEPARTMENT | [address] | [place] [address] | | | PATHOLOGY | [address] [...] view image for the detailed interpretation from Volance results. | CARDIOLOGY | | | | + + + + + + + + | Performing | Address | City/State/Zipcode | Phone Number | | Organization | | | | + + + + + | [facility] DEPT OF | [address] | [place], [place] | | | CARDIOLOGY | [address] | [address] | | + + + + + | [facility] DEPT OF | [address] | [place], [place] | | | CARDIOLOGY | [facility] | [address] | | + + + + + documented in this encounter Visit Diagnoses + + | Diagnosis | + + | Other specified pre-operative examination - Primary | + + documented in this encounter
--- OUTSIDE RECORDS SUMMARY | ~2019-03-03 | XMS | Encounter Summary ---
Demographics + + + | [address] | [address] | | | [place] [address] | + + + | Home Phone [...] [place] | | | | | [address] | | + + + + + Care Team Providers + +------+ + | Care Mattress Stuffer Name | Role | Phone | + [...] (Primary Dx) | | 2006 | | [place] [address] MD | | | | | [place] Mailcode: CH4S | | | | | | [facility] | | | | | | and Healing, | | | | | | Building [address]th | | | | | | Floor [place], [place] | | | | | | [address] | | | | | | [phone] | | | +--------+ + + + [...] Performed At | + + + | [id number] Estimated GFR = 60 mL/min/1.73 sq m if non- | [facility] | | [id number] Estimated GFR > 60 mL/min/1.73 sq m [...] + + | [facility] | [address] | [place] [address] | | | PATHOLOGY | [address] | | | + + + + + | [facility] DEPARTMENT OF | [address] | [place] [address] | | | PATHOLOGY | [address] [...] DEPARTMENT OF | [address] | [place] [address] | | | PATHOLOGY | [address] | | | + + + + + | [facility] | [address] | [place] [address] | | | PATHOLOGY | [address] | | | + + + + + documented in this encounter Visit Diagnoses + + | Diagnosis | + + | Obesity - Primary Obesity, unspecified | + + documented in this encounter"
--- OUTSIDE RECORDS SUMMARY | ~2019-03-03 | XMS | Encounter Summary ---
Demographics + + + | Address | BAD ADDRESS | | | [place] [address] | + + + | Home Phone [...] | Author | [facility] | | | and [place]ana | + + + | Organization | [facility] | | [...] | | | | | [place] [address] | | + + + + + | Najma Krishnamurthy | ECON | Unknown | | + + + + + | Hector Mack | ECON | [address] | | | | | [place] | | | | | [address] | | + + + + + | Najma Sanches | ECON | Unknown | | + + + + + Care Team Providers + +------+ + | Care Artificial Marble Worker Name | Role | Phone | + +------+ + PCP | Unavailable | + +------+ + Encounter Details +--------+ + + + + | Date | Type | Department | Care Team | Description | +--------+ + + + + | 10/16/ | Hospital | [facility] | Lalo Londono MD | | | 2004 | Encounter | MED CTR GENERIC OP | [address] | | | | | CONV DEPT [address] | [address] | | | | | [place], | [address] | | | | | [place] [address] | | | | | | [phone] | | | +--------+ + + + [...]
--- OUTSIDE RECORDS SUMMARY | ~2019-03-03 | XMS | Encounter Summary ---
Demographics + + + | Address | BAD ADDRESS | | | [place] [address] | + + + | Home Phone [...] + | Author | [facility] | | | and [place] | + + + | Organization | [facility] | | [...] | | | | | [place] [address] | | + + + + + | Najma Krishnamurthy | ECON | Unknown | | + + + + + | Hector Mack | ECON | [address] | | | | | [place] | | | | | [address] | | + + + + + | Najma Sanches | ECON | Unknown | | + + + + + Care Team Providers + +------+ + | Care Nutrition Consultant Name | Role | Phone | + +------+ + PCP | Unavailable | + +------+ + Encounter Details +--------+ + + + + | Date | Type | Department | Care Team | Description | +--------+ + + + + | 05/18/ | Hospital | [facility] | | | | 2000 | Encounter | MED CTR EMERGENCY | | | | | | CENTER [address] | | | | | | [place] | | | | | | [address] | | | | | | [phone] | | | +--------+ + + + [...]
--- OUTSIDE RECORDS SUMMARY | ~2019-03-03 | XMS | Encounter Summary ---
Demographics + + + | Address | BAD ADDRESS | | | [place] [address] | + + + | Home Phone [...] | Author | [facility] | | | and [place]ana | + + + | Organization | [facility] [...] | | | | | [place] [address] | | + + + + + | Najma Krishnamurthy | ECON | Unknown | | + + + + + | Hector Mack | ECON | [address] | | | | | [place] | | | | | [address] | | + + + + + | Najma Sanches | ECON | Unknown | | + + + + + Care Team Providers + +------+ + | Care Treasury Consultant Name | Role | Phone | + +------+ + PCP | Unavailable | + +------+ + Encounter Details +--------+ + + + + | Date | Type | Department | Care Team | Description | +--------+ + + + + | 07/07/ | Hospital | [facility] | Isaias Ramirez, | | | 1996 | Encounter | MED CTR XRAY [address] | MD [address] [facility] | | | | | [place] | [place]TONIO [place] MD | | | | | [place] [address] | [id number] | | | | | [phone] | | | +--------+ + + + [...]
--- OUTSIDE RECORDS SUMMARY | ~2019-03-03 | XMS | Encounter Summary ---
Demographics + + + | Address | [address] | | | [place] [address] | + + + | Home Phone [...] [place] | | | | | [address] | | + + + + + Care Team Providers + +------+ + | Care Senior System Operator Name | Role | Phone | [...] [address] | | | | | | [place], [place] | | | | | | [address] | | | +--------+ + + + [...]
--- OUTSIDE RECORDS SUMMARY | ~2019-03-03 | XMS | Encounter Summary ---
Demographics + + + | Address | BAD ADDRESS | | | [place] [address] | + + + | Home Phone [...] Author | [facility] | | | and [place]ana | + + + | Organization | [facility] [...] | | | | | [place] [address] | | + + + + + | Najma Krishnamurthy | ECON | Unknown | | + + + + + | Hector Mack | ECON | [address] | | | | | [place] | | | | | [address] | | + + + + + | Najma Sanches | ECON | Unknown | | + + + + + Care Team Providers + +------+ + | Care Grease Refiner Operator Name | Role | Phone [...] 2018 | | HOSPITAL EMERGENCY | C, SUPERVISOR COAL HANDLING [address] | skin eruption | | | | CENTER [address] | [address] [place] | (Primary Dx); Severe | | | | [place] | [address] | uncontrolled | | | | [address] | | hypertension; | | | | [phone] | | Noncompliance with | | | [...] D?MRN: | | | | | | [id number] | | | [id number] | | | ecurit | | | [...] | | | St. | | | [place] | | | y | | | [...] | | | [phone] | | | [phone] | | | .These | | | [...] | | | St. | | | [place] | | | y H. | | [...] | | | St. | | | [place] | | | y H. | | [...] | | | St. | | | [place] | | | y | | | [...]
--- OUTSIDE RECORDS SUMMARY | ~2019-03-03 | XMS | Encounter Summary ---
Demographics + + + | Address | [address] | | | [place] [address] | + + + | Home Phone [...] [place] | | | | | [address] | | + + + + + Care Team Providers + +------+ + | Care Logistics Intern Name | Role | Phone | [...] | | | | Surgery at [facility] [address] | | | | | | [address] | | | | | | Mailcode: [facility] | | | | | | [facility] | | | | | | and Healing, | | | | | | Building 1, | | | | | | Floor [place], [place] | | | | | | [address] | | | | | | [phone] | | | +--------+---------+ + + + [...]
--- OUTSIDE RECORDS SUMMARY | ~2019-03-03 | XMS | Encounter Summary ---
Demographics + + + | Address | BAD ADDRESS | | | [place] [address] | + + + | Home Phone [...] | Author | [facility] | | | and [place] | + + + | Organization | [facility] | | | and [...] | | | | | [place] [address] | | + + + + + | Najma Krishnamurthy | ECON | Unknown | | + + + + + | Hector Mack | ECON | [address] | | | | | [place] | | | | | [address] | | + + + + + | Najma Sanches | ECON | Unknown | | + + + + + Care Team Providers + +------+ + | Care Delinquent Notice Machine Operator Name | Role | Phone [...] [address] | | | | | | [place], [place] | | | | | | [address] | | | | | | [phone] | | | +--------+ + + + [...]
--- OUTSIDE RECORDS SUMMARY | ~2019-03-03 | XMS | Encounter Summary ---
Demographics + + + | Address | BAD ADDRESS | | | [place] [address] | + + + | Home Phone [...] | Author | [facility] | | | and [place] | + + + | Organization | [facility] | | [...] | | | | | [place] [address] | | + + + + + | Najma Krishnamurthy | ECON | Unknown | | + + + + + | Hector Mack | ECON | [address] | | | | | [place] | | | | | [address] | | + + + + + | Najma Sanches | ECON | Unknown | | + + + + + Care Team Providers + +------+ + | Care Heel Emery Buffer Name | Role | Phone | + [...] [place] | | | | | | [address] | | | | | | [phone] | | | +--------+ + + + [...]
--- OUTSIDE RECORDS SUMMARY | ~2019-03-03 | XMS | Encounter Summary ---
[...] | Author | [facility] | | | and [place] | + + + | Organization | [facility] [...] | | | | | [place] [address] | | + + + + + | Najma Krishnamurthy | ECON | Unknown | | + + + + + | Hetcor Mack | ECON | [address] | | | | | [place] | | | | | [address] | | + + + + + | Najma Sanches | ECON | Unknown | | + + + + + Care Team Providers + +------+ + | Care Institute Scientist Name | Role | Phone | + +------+ + | Tuan Chan MD | PCP | | + +------+ + Encounter Details +--------+ + + + + | Date | Type | Department | Care Team | Description | +--------+ + + + + | 01/03/ | Emergency | [facility] | Silas Maravilla | Cellulitis of chest | | 2018 | | HOSPITAL EMERGENCY | MD [address] | window rock (Primary Dx) | | | | [address] | [place] SHAFER, | | | | | [place] [employer], [place] | [place] [address] | | | | | [address] | [phone] | | | | | [phone] | | | +--------+ + + + [...] not be allowed to run out. Contact [facility] as well as [facility] Friday to establish with a doctor. documented [...] D?MRN: | | | | | | [id number] | | | [id number] | | | his | | | [...] | | | St. | | | [place] | | | y | | | [...] | | | St. | | | [place] | | | y | | | [...] | | | [place] | | | [facility], | | | [place] - | | | [email or web address] | | | ollect | | | ivemed | | | icalte | | | [place] | | | | +---+--------+ documented in [...]
--- OUTSIDE RECORDS SUMMARY | ~2019-03-03 | XMS | Encounter Summary ---
Demographics + + + | Address | [address] | | | [place] [address] | + + + | Home Phone [...] [place] | | | | | [address] | | + + + + + Care Team Providers + +------+ + | Care Dietetic Aide Name | Role | Phone | [...] Mailcode: | | | | | | [place], [place] | [address] [facility] | | | | | | [address] | Hospital | | | | | | | [place], [place] | | | | | | | [address] | | | | | | | Phone: | | | | | | | [phone] | | | | | | | Fax: | | | | | | | [phone] | +--------+--------+ + + + + Diagnostic [...] CTA | Socorro Genao MD | alyssa [address] | | | | | HEAD WITH | [address] | | | | | CONTRAST | South | [address] | | | | | | [address] | Mailcode: | | | | | | EDU[place]O FLOR[place] | [address] [place] | | | | | | [address] | Hospital | | | | | | Phone: | [place], [place] | | | | | | [phone] | [address] | | | | | | Fax: | Phone: | | | | | | [phone] | [phone] | | | | | | | Fax: | | | | | | | [phone] | +--------+--------+ + + + + Diagnostic [...] Mailcode: | | | | | | [place], [place] | [facility] | | | | | | [address] | [place] | | | | | | Phone: | Research | | | | | | [phone] | [place] | | | | | | Fax: | [place], [place] | | | | | | [phone] | [address] | | | | | | | Phone: | | | | | | | [phone] | | | | | | | Fax: | | | | | | | [phone] | +--------+--------+ + + + + Reason [...] NE Mother | | | | | 39479/KPV12 MIMA | [facility] | | | [birth year] | | MONICA [place], | [place] [address] | | | 2012 | | [place] [address] | [phone] | | | | | [phone] | | | | | | | Chaim Vizcarra MD | | | | | | [address] | | | | | | Mary Becker [place], | | | | | | [place] [address] | | | | | | [phone] | | | | | | | [...] PST INPATIENT PHYSICIAN DISCHARGE SUMMARY Author: TUAN ACRRENO MD Attending Physician: Halley Noriega MD PCP: [...] chronic back pain, who tripped on some BitePalr cords 10 days prior to admission, in [...] fracture, and she was subsequently transferred to [facility] for escalation of care. On [...] Derm follow-up closer to her home in [place]. Medications: Discharge Medication List as of 04/24/2012 [...] Attending Physician: MD Tuan Sethi MD Neurology Student Loan Counselor Pager [phone] I saw and evaluated the patient. I agree with the findings and the plan of care as yesika lares in the resident s note. Halley Noriega MD Reproduction Production Manager Department of Neurology [facility] DEPARTMENT: Neurology Attending - [id number] Place of Service: [facility] [address] Date of Service: 04/24/2012 CSN: [id number] Suggestive Modifier: GC - Resident Present Suggested CPT: 51075 - Discharge Day mgmt up to 30 [...] to re-consult, any questions. DANIELLE WYNN PA-C [facility] [address] [place] [address] etrona Wynn PA - 04/23/2012 10:44 AM [...] HCT 35.4* 03/13/2011 7:46 AM HCT See [facility] 03/11/2011 5:13 PM WBC 6.8 04/23/2012 7:45 AM WBC 6.4 03/13/2011 7:46 AM WBC See nt 03/11/2011 5:13 PM PLT 209 04/23/2012 7:45 AM PLT 217 03/13/2011 7:46 AM PLT See [facility] 03/11/2011 5:13 PM CULTURE RESULT [...] indicated. Final Rep ort Resulted: 03/13/11 RLB ([facility]) [facility] [address] [place] [address] STUDY: SPINE CERVICAL 2 VWS FLEX/EXT 04/22/12 [...] otherw ise intact. Motor 5/5 except LUE enterprise cloud architect 4/5 Sensation intact to light touch Assessment [...] collar Will continue to follow. FABIO JACOBSEN-Matty [facility] [address] [address]/[facility] [place] [address] Halley Haddad MD - 04/23/2012 8:37 AM [...] recent outside MRI performed 04/20/12. Attending Radiologists: Josehp Hale MD Assessment: Germaine Heard is a [...] and plan. VERA COOK MD,MPH Neurology Resident [id number] I performed a history and physical examination [...] it requires holding plavix. Halley Noriega MD Reproduction Production Manager Department of Neurology [facility] DEPARTMENT: Neurology Attending - [id number] Place of Service: - Date of Service: 04/22/2013 CSN: [id number] Suggestive Modifier: None Suggested CPT: 94752 - Initial Visit, Level 2 Suggested Diagnosis: [...] and face w eakness and referred to [facility] for possible cervical fracture. MRI [...] ridgeSocorro shah MD - 04/22/2012 7:51 AM [facility] NEUROSURGERY PROGRESS NOTE Author: [...] Tongue midline Trace left pronator drift Slowed raxysl-ld-dkro movements with mild end-point dysmetria 5/5 bilateral [...] Rose MD - 04/22/2012 7:47 AM PST [facility] Progress Note Team Pager: [phone] Attendin Attending Cashier Courtesy Booth: Primary Service Attending: MD Bryan Espinosa MD [...] 0659 04/22/12 07 - 04/23/12 0659 Shift 2190-8442 0904-6245 0890-3471 Daily Total 0434-4784 2438-8650 4854-4024 Daily Total I N T A K [...] therapy once cleared OTHER Dispo Transfer to [facility] pending neuro recs Relevant Risks: This patient is currently at risk for the following: cerebral edema, barry ctrolyte imbalance, hyponatremia and ischemic stroke; acute renal failure, dysphagia, edema, ICU delirium, malnutrition and UTI. This patient has been staffed with Dr. Black, attending physician, who agrees with the [facility] assessment and plan. Viktoriya Downs MD PGY2 Neurology Pager [phone] documented in t his encounter Plan of [...] MARQUAM | [address] | [place], [place] | | | DELICIA GALENA OF [facility] | [facility] | [address] | | | TESTS | | | [...] [facility] | [address] | [place] [address] | | | SERVICES, CORE | MARY [...] [facility] | [address] | [place] [address] | | | SERVICES, CORE | PARK [...] + | [facility] | [address] | [place] [address] | | | BLU GUTIERREZ | MARY [...] (H) | 60 - 99 mg/dL | [facility] - | | | GLUCOSE, [...] PAPPAS | 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 The patient was seen and examined with | | | the attending physician. We discussed the recommendations listed | | | above. Trevor Sosa M.D. Resident, Department of | | | Dermatology [facility] [place] Attending | | | Physician Attestation I personally interviewed, examined the patient, | | | and discussed management with the resident. I reviewed and edited | | | the resident's note and agree with the documented findings and plan | | | of care. Khoa Manuel MD, PhD Reproduction Production Manager, | | | Department of Dermatology [facility] | | | DEPARTMENT: [id number] [facility] Place of Service:- | | | Inpatient Date of Service: 04/23/2012 MEDICAL RECORD NUMBER | | | [id number] CSN: [id number] Suggested Modifier: GC Resident Involved: | | | GC Resident Involved Suggested CPT: 51958 - Initial, Detailed; Low | | | [...] medications.She mentions that she was seen by [facility] | | dermatology in 2008 [...] of Education: N/A Occupational History | | [employer] Social History Main Topics | | Smoking [...] | follow-up closer to her home in [place]; would f/u with a contract administrator there if not | | improved on topicalsPlease contact us with further questions. The patient was seen and | | examined with the attending physician. We discussed the recommendations listed | | above.Trevor Sosa M.D.Resident, [facility] [employer] | | [place] Attending Physician Yemi personally interviewed, examined the | | patient, and discussed management with the resident. I reviewed and edited the | | resident's note and agree with the documented findings and plan of care. Khoa Lee | | MD Kaleb, PhDAssistant Professor, [facility] [employer] | | [facility] DEPARTMENT: [id number] [facility] of Service:- Inpatient Date | | of Service: 04/23/2012 : [id number] Modifier: | | GC Resident Involved: GC Resident InvolvedSuggested CPT: 82929 - Initial, Detailed; Low | | complex [...] to follow-up closer to her home in [place]; would f/u with a contract administrator there if not improved on topicals | | | |Please contact us with further questions. The patient was seen and examined with the attend ing physician. We discussed the recommendations listed above. | | | | | |Trevor Sosa M.D. | |Resident, Department of Dermatology | |[facility] | | | |Attending Physician Attestation | |I personally interviewed, examined the patient, and discussed management with the resident. I reviewed and edited the resident's note and agree with the documented findings and plan of care. | | | | | |Khoa Manuel MD, PhD | |Reproduction Production Manager, Department of Dermatology | |[facility] | | | |[facility] DEPARTMENT: [id number] [facility] | |Place of Service:[address]- Inpatient | |Date of Service: 04/23/2012 | | | |CSN: [id number] | |Suggested Modifier: GC Resident Involved: GC Resident Involved | |Suggested CPT: 38636 - Initial, Detailed; Low complex 30 min [...] AMY PAPPAS | [address] | [place], [place] | | | DELICIA POINT OF CARE | [address] | [address] | | | TESTS | | | [...] + | [facility] - | [address] | [place] [address] | | | [place] | | | [...] + | [facility] - | [address] | [place] [address] | | | [place] | | | [...] + | [facility] - | [address] | [place] [address] | | | [place] | | | | + + + [...] MARQUAM | [address] | [place], [place] | | | MARLEEN NESBITT OF CARE | [address] | [address] | | | TESTS | | | [...] | + + + + + | [facility] - | [address] | [place] [address] | | | [place] | | | [...] | + + + + + | [facility] - | [address] | [place] [address] | | | [place] | | | [...] if | | | | | | [id number] >400: | | | | | | [...] + | [facility] - | [address] | [place] [address] | | | [place] | | | | + + + [...] by | | | | | | [employer],[address] | | | | | | Neri Alvarez, [facility],[place] | | | | | | [address] | | | | | | [phone].[place] [facility]. | | | | | [...] [facility] | [address] | [place], [place] | | | UNIV P[facility] - [facility] | | [address] | | + + + + + [...] + | [facility] - | [address] | [place] [address] | | | [place] | | | [...] + | [facility] - | [address] | [place] [address] | | | [place] | | | [...] + | [facility] - | [address] | [place] [address] | | | [place] | | | | + + + [...] [facility] | [address] | [place] [address] | | | SERVICES, CORE | PARK [...] + + + + + + | MATCHBOOK ASSEMBLER AB | Negative | Negative | [facility] [...] 7.0-10 | SERVICES, | | >10 Abraham MATCHBOOK ASSEMBLER AB U/ml <5.0 5.0-10 | SPECIAL IMM [...] | + + + + + | [facility] | [address] | [place] [address] | | | SERVICES, SPECIAL | MARY [...] | + + + + + | [facility] | [address] | [place] [address] | | | SERVICES, SPECIAL | PARK [...] | + + + + + | [facility] | [address] | [place] [address] | | | SERVICES, CORE | MARY [...] | + + + + + | [facility] | [address] | [place] [address] | | | SERVICES, CORE | MARY [...] | + + + + + | [facility] | [address] | [place] [address] | | | SERVICES, CORE | MARY [...] ELYSE | [address] | [place], [place] | | | CITLALI NESBITT | [facility] | [address] | | | TESTS | | | [...] PAPPAS | [address] | [place], [place] | | | MARLEEN NESBITT OF CARE | [address] | [address] | | | TESTS | | | [...] PAPPAS | [address] | [place], [place] | | | MARLEEN NESBITT OF [facility] | [facility] | [address] | | | TESTS | | | [...] [facility] | [address] | [place] [address] | | | SERVICES, CORE | PARK [...] | + + + + + | [facility] | [address] | [place] [address] | | | SERVICES, CORE | MARY [...] | | | | Final | | [place] | | | | CULTURE RESULT:Multiple | [...] + | [facility] - | [address] | [place] [address] | | | [place] | | | [...] [facility] | [address] | [place] [address] | | | SERVICES, BLU | MARY [...] - ELYSE | [address] | [place], [place] | | | ROCKWALL GALENA [facility] | [address] | [address] | | | TESTS | | | [...] [facility] | [address] | [place] [address] | | | SERVICES, CORE | PARK [...] | + + + + + | [facility] | [address] | [place] [address] | | | SERVICES, | [address] [...] [facility] | [address] | [place] [address] | | | SERVICES, | [address] [...] + | [facility] | [address] | [place] [address] | | | SERVICESBLU | [address] [...] [facility] | [address] | [place] [address] | | | SERVICES, CORE | PARK [...] [facility] | [address] | [place] [address] | | | SERVICES, CORE | MARY [...]
--- OUTSIDE RECORDS SUMMARY | ~2019-03-03 | XMS | Encounter Summary ---
Demographics + + + | Address | [address] | | | [place] [address] | + + + | Home Phone [...] [place] | | | | | [address] | | + + + + + Care Team Providers + +------+ + | Care Maintenance Journeyman Name | Role | Phone | + [...] as of this encounter Progress Notes Interface, Customer Contact Sales Associate In - 02/15/2006 2:34 AM [facility] [id number] ANTONIETTAKRZYSZTOF RAE 193311 Referred From and Faxed To: Tim Paula [...] 4:01. Length of Visit: Sixty-one minutes of sxvv-hx-tona consult with the patient and her friend [...] with myself, dietitian post-surgery. She is from [place]. This visit can be scheduled when she has a followup appointment with her surgeon here at [facility] Patient's Comprehension: This visit [...] friend Lulu. Caitlyn Chery R.D., L.D. / [id number] / [id number] / [id number] / cc: Chey Milan A.NSonyPSony Electronically signed by Caitlyn Chery 02-14-2006 01:37:50 PM documented i n this encounter Plan of Treatment Not on filedocumented as of this encounter Visit Diagnoses Not on filedocumented in this encounter"
--- OUTSIDE RECORDS SUMMARY | ~2019-03-03 | XMS | Encounter Summary ---
Demographics + + + | Address | [address] | | | [place] [address] | + + + | Home Phone [...] [place] | | | | | [address] | | + + + + + Care Team Providers + +------+ + | Care Fbi Field Agent Name | Role | Phone | + +------+ + | Tuan Chan MD | PCP | | + +------+ + Encounter Details +--------+ + + + + | Date | Type | Department | Care Team | Description | +--------+ + + + + | 02/06/ | Respiratory | | Other, Faculty | | | 2005 | Therapy | | [phone] | | +--------+ + + + + [...] | | | | | Ap Butler, FLIGHT LINE SERVICE ATTENDANT | | | | + + + [...] | DIAGNOSTICS - | [address] | [address] | | | PULMONARY FUNCTION | | [...] | DIAGNOSTICS - | [address] | [address] | | | PULMONARY FUNCTION | | [...] | [address] | [place], [place] | | | DIAGNOSTICS - | [address] | [address] | | | PULMONARY FUNCTION | | [...] | [address] | [place], [place] | | | DIAGNOSTICS - | [address] | [address] | | | PULMONARY FUNCTION | | [...] | | | | | Noe Alas, FLIGHT LINE SERVICE ATTENDANT | | | | + + + [...] [facility] | [address] | [place], [place] | | | DIAGNOSTICS - | [address] | [address] | | | PULMONARY FUNCTION | | [...] | DIAGNOSTICS - | [address] | [address] | | | PULMONARY FUNCTION | | [...] | DIAGNOSTICS - | [address] | [address] | | | PULMONARY FUNCTION | | [...] | | | | | Jeff Watts FLIGHT LINE SERVICE ATTENDANT | | | | + + + [...] | DIAGNOSTICS - | [address] | [address] | | | PULMONARY FUNCTION | | [...] | | | | | Mark Giraldo, FLIGHT LINE SERVICE ATTENDANT | | | | + + + [...] | [address] | [place], [place] | | | DIAGNOSTICS - | [address] | [address] | | | PULMONARY FUNCTION | | [...] | DIAGNOSTICS - | [address] | [address] | | | PULMONARY FUNCTION | | [...] | DIAGNOSTICS - | [address] | [address] | | | PULMONARY FUNCTION | | [...] 10. | | | | | | CROWN IRONER OPERATOR IN USE: PATIENT SELF | | [...] NONE | | | | | | [id number] HOURS . . | | | | [...] | | | | . Sirisha Vigil, [facility] | | | | + + [...] | DIAGNOSTICS - | [address] | [address] | | | PULMONARY FUNCTION | | [...] | DIAGNOSTICS - | [address] | [address] | | | PULMONARY FUNCTION | | | | + + + + + documented in this encounter Visit Diagnoses Not on filedocumented in this encounter"
--- OUTSIDE RECORDS SUMMARY | ~2019-03-03 | XMS | Encounter Summary ---
Demographics + + + | Address | [address] | | | [place] [address] | + + + | Home Phone [...] [place] | | | | | [address] | | + + + + + Care Team Providers + +------+ + | Care Bridal Sales Consultant Name | Role | Phone [...] | Activity | [address] | [address] | | | | | [address] Mailcode: [address] | [place], [place] | | | | | [place], [place] | [address] | | | | | [address] | [phone] | | | | | [phone] | | | +--------+ + + + [...]
--- OUTSIDE RECORDS SUMMARY | ~2019-03-03 | XMS | Encounter Summary ---
Demographics + + + | Address | [address] | | | [place] [address] | + + + | Home Phone [...] [place] | | | | | [address] | | + + + + + Care Team Providers + +------+ + | Care Button Sewing Machine Operator Name | Role | Phone [...] 2007 | Registratio | [address] | [address] | | | | n | Eugenio Mailcode: [address] | [place], [place] | | | | | [place], [place] | [address] | | | | | [address] | [phone] | | | | | [phone] | | | +--------+ + + + [...]
--- OUTSIDE RECORDS SUMMARY | ~2019-03-03 | XMS | Encounter Summary ---
Demographics + + + | Address | BAD ADDRESS | | | [place] [address] | + + + | Home Phone [...] Author | [facility] | | | and Byronana | + + + | Organization | [facility] | [...] | | | | | [place] [address] | | + + + + + | Najma Krishnamurthy | ECON | Unknown | | + + + + + | Hector Mack | ECON | [address] | | | | | [place] | | | | | [address] | | + + + + + | Najma Sanches | ECON | Unknown | | + + + + + Care Team Providers + +------+ + | Care Tree Deadener Name | Role | Phone | + +------+ + PCP | Unavailable | + +------+ + Encounter Details +--------+ + + + + | Date | Type | Department | Care Team | Description | +--------+ + + + + | 10/18/ | Hospital | [facility] | | | | 1999 | Encounter | [facility] | | [facility] | | [facility] [address] | | | | | | [place] | | | | | | [address] | | | | | | [phone] | | | +--------+ + + + [...]
--- OUTSIDE RECORDS SUMMARY | ~2019-03-03 | XMS | Encounter Summary ---
Demographics + + + | Address | [address] | | | [place] [address] | + + + | Home Phone [...] [place] | | | | | [address] | | + + + + + Care Team Providers + +------+ + | Care Educational Aide Name | Role | Phone | [...] | | | | | abdominal | [facility] [place] | Mailcode: | | | | | cavity | [address] | [facility] | | | | | without | | for Health | | | | | mention of | | and Healing, | | | | | obstruction | | [address], | | | | | or gangrene | | 5th Floor | | | | | | | [place], [place] | | | | | Panniculitis | | [address] | | | | | Procedures | | Phone: | | | | | REQUEST TO | | [phone] | | | | | SURGERY | | | | | | | MEDICAL SERVICE TECHNICIAN | | | +--------+--------+ + + + [...] | | | | | abdominal | [place], [place] | Mailcode: | | | | | cavity | [address] | [address] [facility] | | | | | without | | Hospital | | | | | mention of | | [place], [place] | | | | | obstruction | | [address] | | | | | or gangrene | | Phone: | | | | | Procedures | | [phone] | | | | | CT ABDOMEN | | Fax: | | | | | WWO CONTRAST | | [phone] | | | | | LTD | [...] Panniculitis | | | | Surgery at [facility] [address] | | | | | | [address] | | | | | | Mailcode: CH5 | | | | | | [facility] | | | | | | and Healing, | | | | | | Building [address], 5th | | | | | | Floor [place], [place] | | | | | | [address] | | | | | | [phone] | | | +--------+---------+ + + + [...] | | + +---------+ + + | [facility] DEPARTMENT OF | | [...]
--- OUTSIDE RECORDS SUMMARY | ~2019-03-03 | XMS | Encounter Summary ---
Demographics + + + | Address | [address] | | | [place] [address] | + + + | Home Phone [...] [place] | | | | | [address] | | + + + + + Care Team Providers + +------+ + | Care Nut Roaster Name | Role | Phone | + [...] [id number] | | | | | | [place], [place] | | | | | | [address] | | | | | | [phone] | | | +--------+ + + + [...] DEPARTMENT OF | [address] | [place] [address] | | | PATHOLOGY | [address] | | | + + + + + | [place] DEPARTMENT OF | [address] [facility] [address] | [place] [address] | | | PATHOLOGY | [address] [...] | [facility] | [address] [place] [address] | [place] [address] | | | PATHOLOGY | [address] | | | + + + + + | [facility] DEPARTMENT | [address] [place] [address] | [place] [address] | | | PATHOLOGY | [address] [...] OF | [address] | [place] [address] | | | PATHOLOGY | [address] | | | + + + + + | [place] DEPARTMENT OF | [address] | [place] [address] | | | PATHOLOGY | [address] [...] DEPARTMENT OF | [address] | [place] [address] | | | PATHOLOGY | [address] | | | + + + + + | [place] DEPARTMENT | [address] | [place] [address] | | | PATHOLOGY | [address] [...] [facility] DEPARTMENT OF | [address] [facility] [address] | [place] [address] | | | PATHOLOGY | [address] | | | + + + + + | [facility] DEPARTMENT OF | [address] [facility] [address] | [place] [address] | | | PATHOLOGY | [address] [...] DEPARTMENT OF | [address] | [place] [address] | | | PATHOLOGY | [address] | | | + + + + + | [facility] DEPARTMENT OF | [address] | [place] [address] | | | PATHOLOGY | [address] [...] DEPARTMENT OF | [address] | [place] [address] | | | PATHOLOGY | [address] | | | + + + + + | [place] DEPARTMENT OF | [address] | [place] [address] | | | PATHOLOGY | [address] [...] [facility] | [address] [facility] [address] | [place] [address] | | | PATHOLOGY | [address] | | | + + + + + | [facility] | [address] [facility] [address] | [place] [address] | | | PATHOLOGY | [address] [...] DEPARTMENT OF | [address] | [place] [address] | | | PATHOLOGY | [address] | | | + + + + + | [place] DEPARTMENT OF | [address] | [place] [address] | | | PATHOLOGY | [address] [...] [facility] | [address] [facility] [address] | [place] [address] | | | PATHOLOGY | [address] | | | + + + + + | [facility] | [address] [facility] [address] | [place] [address] | | | PATHOLOGY | [address] [...] [facility] | [address] [facility] | [place] [address] | | | PATHOLOGY | [address] | | | + + + + + | [facility] | [address] [place] [address] | [place] [address] | | | PATHOLOGY | [address] [...] DEPARTMENT OF | [address] | [place] [address] | | | PATHOLOGY | [address] | | | + + + + + | [facility] DEPARTMENT OF | [address] | [place] [address] | | | PATHOLOGY | [address] [...] [facility] [place] | [address] | [place] [address] | | | PATHOLOGY | [address] | | | + + + + + | [facility] | [address] [place] [address] [address] | [place] [address] | | | PATHOLOGY | [address] [...] [facility] | [address] [facility] | [place] [address] | | | PATHOLOGY | [address] | | | + + + + + | [facility] | [address] [facility] | [place] [address] | | | PATHOLOGY | [address] [...] DEPARTMENT OF | [address] | [place] [address] | | | PATHOLOGY | [address] | | | + + + + + | [facility] DEPARTMENT | [address] | [place] [address] | | | PATHOLOGY | [address] [...] [facility] DEPARTMENT OF | [address] | [place] [address] | | | PATHOLOGY | [address] | | | + + + + + | [facility] DEPARTMENT OF | [address] | [place] [address] | | | PATHOLOGY | [address] [...] [facility] | [address] [facility] | [place] [address] | | | PATHOLOGY | [address] | | | + + + + + | [facility] | [address] [facility] | [place] [address] | | | PATHOLOGY | [address] [...] DEPARTMENT OF | [address] | [place] [address] | | | PATHOLOGY | [address] | | | + + + + + | [place] DEPARTMENT OF | [address] | [place] [address] | | | PATHOLOGY | [address] [...] DEPARTMENT OF | [address] | [place] [address] | | | PATHOLOGY | [address] | | | + + + + + | [facility] DEPARTMENT OF | [address] | [place] [address] | | | PATHOLOGY | [address] [...] DEPARTMENT OF | [address] | [place] [address] | | | PATHOLOGY | [address] | | | + + + + + | [facility] DEPARTMENT OF | [address] | [place] [address] | | | PATHOLOGY | [address] [...] No. | | | | | | [phone], medical | | | | | | record [phone], ICD-9 | | | | | | [...] + + | Performing | Address | City/State/[facility] | Phone Number | | Organization | [...] [facility] DEPARTMENT OF | [address] | [place] [address] | | | PATHOLOGY | [address] | | | + + + + + | [facility] | [address] | [place] [address] | | | PATHOLOGY | [address] [...] DEPARTMENT OF | [address] | [place] [address] | | | PATHOLOGY | [address] | | | + + + + + | [facility] DEPARTMENT OF | [address] | [place] [address] | | | PATHOLOGY | [address] [...] DEPARTMENT OF | [address] | [place] [address] | | | PATHOLOGY | [address] | | | + + + + + | [facility] DEPARTMENT | [address] | [place] [address] | | | PATHOLOGY | [address] [...] [facility] [place] | [address] | [place] [address] | | | PATHOLOGY | [address] | | | + + + + + | [facility] | [facility] [address] | [place] [address] | | | PATHOLOGY | [address] [...] | [facility] | [address] [place] [address] | [place] [address] | | | PATHOLOGY | [address] | | | + + + + + | [facility] DEPARTMENT | [address] [place] [address] | [place] [address] | | | PATHOLOGY | [address] [...] [facility] DEPARTMENT OF | [address] [facility] | [place] [address] | | | PATHOLOGY | [address] | | | + + + + + | [facility] DEPARTMENT OF | [address] [facility] | [place] [address] | | | PATHOLOGY | [address] [...] CENTER DEPARTMENT | [address] | [place] [address] | | | PATHOLOGY | [address] | | | + + + + + | [facility] | [facility] [address] | [place] [address] | | | PATHOLOGY | [address] [...] DEPARTMENT OF | [address] | [place] [address] | | | PATHOLOGY | [address] | | | + + + + + | [facility] DEPARTMENT OF | [address] | [facility] [place] [address] | | | PATHOLOGY | [address] [...] DEPARTMENT OF | [address] | [place] [address] | | | PATHOLOGY | [address] | | | + + + + + | [place] DEPARTMENT OF | [address] | [place] [address] | | | PATHOLOGY | [address] [...] + +---------+ + + | [facility] DEPARTMENT OF | | [...] by | | | | | | [facility] | | | | | | [facility] Z2. | | | | + + + + + + + + | Specimen | + + | | + + + + + + + | Performing | Address | City/State/Zipcode | Phone Number | | Organization | | | | + + + + + | [facility] | [address] | [place] [address] | | | LABORATORY | | | | + + + + + documented in this encounter Visit Diagnoses Not on filedocumented in this encounter"
== END 2019-03-03 18:25 | disposition left against medical advice (07) ==
LOC: ED 16:27
DX: Z53.21 Procedure and treatment not carried out due to patient leaving prior to being seen by health care provider (principal)

== ENCOUNTER 2019-07-26 07:52 | Emergency (ER) | payer MEDICARE, OTHER ==
[~2019-07-26] VITALS: Ht 154.9 cm; Wt 57.6 kg
--- OUTSIDE RECORDS SUMMARY | ~2019-07-26 | XMS | Encounter Summary ---
Demographics + + + | Address | BAD ADDRESS | | | [place] [address] | + + + | Home Phone | | + + + | Preferred Language | Unknown | + + + | Marital Status | | + + + | Bahai Affiliation | 1077 | + + + | Race | Unknown | + + + | Ethnic Group | Unknown | + + + Author + + + | Author | [facility] | | | and [place] | + + + | Organization | [facility] | | | and [place] | + + + | Address | Unknown | + + + | Phone | Unavailable | + + + Support + + + + + | Name | Relationship | Address | Phone | + + + + + | Hector Mack | ECON | [address] | | | | | [place] [address] | | + + + + + | Najma Krishnamurthy | ECON | Unknown | | + + + + + | Hector Mack | ECON | [address] | | | | | [place] | | | | | [address] | | + + + + + | Najma Sanches | ECON | Unknown | | + + + + + Care Team Providers + +------+ + | Care Chief Petroleum Engineer Name | Role | Phone | + +------+ + PCP | Unavailable | + +------+ + Encounter Details +--------+ + + + + | Date | Type | Department | Care Team | Description | +--------+ + + + + | 07/10/ | Hospital | [facility] | | | | 1996 | Encounter | [facility] | | | | | | CENTER [address] | | | | | | [place] | | | | | | [address] | | | | | | [phone] | | | +--------+ + + + [...]
--- OUTSIDE RECORDS SUMMARY | ~2019-07-26 | XMS | Encounter Summary ---
Demographics + + + | Address | [address] | | | [place] [address] | + + + | Home Phone | | + + + | Preferred Language | Unknown | + + + | Marital Status | | + + + | Church Affiliation | PRO | + + + | Race | White | + + + | Ethnic Group | Not or | + + + Author + + + | Author | [facility] | + + + | Organization | [facility] | + + + | Address | Unknown | + + + | Phone | Unavailable | + + + Support + + + + + | Name | Relationship | Address | Phone | + + + + + | Hector Mack | ECON | [address] | | | | | [place] | | | | | [address] | | + + + + + Care Team Providers + +------+ + | Care Exchange Mechanic Name | Role | Phone | + +------+ + | Tuan Chan MD | PCP | | + +------+ + Encounter Details +--------+ + + + + | Date | Type | Department | Care Team | Description | +--------+ + + + + | 11/22/ | Document-Sc | UNKNOWN DEPARTMENT | Unknown . | | | 2006 | anned | [address] | | | | | [address] | | | | | | [place], [place] | | | | | | [address] | | | +--------+ + + + [...]
--- OUTSIDE RECORDS SUMMARY | ~2019-07-26 | XMS | Encounter Summary ---
Demographics + + + | Address | [address] | | | [place] [address] | + + + | Home Phone | | + + + | Preferred Language | Unknown | + + + | Marital Status | | + + + | Scientology Affiliation | PRO | + + + | Race | White | + + + | Ethnic Group | Not or | + + + Author + + + | Author | [facility] | + + + | Organization | [facility] | + + + | Address | Unknown | + + + | Phone | Unavailable | + + + Support + + + + + | Name | Relationship | Address | Phone | + + + + + | Hector Mack | ECON | [address] | | | | | [place] | | | | | [address] | | + + + + + Care Team Providers + +------+ + | Care Dye Automation Operator Name | Role | Phone | + +------+ + | Tuan Chan MD | PCP | | + +------+ + Encounter Details +--------+ + + + + | Date | Type | Department | Care Team | Description | +--------+ + + + + | 02/04/ | Ancillary | Registration [address] | [address] | | | 2005 | Registratio | [address] | [phone] | | | | [address] | [address] Mailcode: [id number] | | | | | | [place], [place] | | | | | | [address] | | | | | | [phone] | | | +--------+ + + + [...]
--- OUTSIDE RECORDS SUMMARY | ~2019-07-26 | XMS | Encounter Summary ---
Demographics + + + | Address | BAD ADDRESS | | | [place] [address] | + + + | Home Phone | | + + + | Preferred Language | Unknown | + + + | Marital Status | | + + + | Yazidism Affiliation | 1077 | + + + | Race | Unknown | + + + | Ethnic Group | Unknown | + + + Author + + + | Author | [facility] | | | and [place] | + + + | Organization | [facility] | | | and [place] | + + + | Address | Unknown | + + + | Phone | Unavailable | + + + Support + + + + + | Name | Relationship | Address | Phone | + + + + + | Hector Mack | ECON | [address] | | | | | [place] [address] | | + + + + + | Najma Krishnamurthy | ECON | Unknown | | + + + + + | Hector Mack | ECON | [address] | | | | | [place] | | | | | [address] | | + + + + + | Najma Sanches | ECON | Unknown | | + + + + + Care Team Providers + +------+ + | Care Copper Flotation Operator Name | Role | Phone | + +------+ + | Tuan Chan MD | PCP | | + +------+ + Encounter Details +--------+ + + + + | Date | Type | Department | Care Team | Description | +--------+ + + + + | 09/02/ | Hospital | [facility] | Tuan Chan, | | | 2017 | Encounter | [facility] [address] | [address] | | | | [address] | [place], [place] | | | | | [place] | [address] | | | | | [address] | [phone] | | | | | [phone] | | | +--------+ + + + [...] + + documented as of this encounter Functional Status + + + [...] | | 0 | | | | (K-DUR,TAYEOR-CON) 10 | Daily. | | | | [...] | + +--------+ + + + | XR KNEE RIGHT 3 VW | Routin | 09/02/2016 | | Results for this | | | e | 2:48 PM | | procedure are in the | | | | PDT | | results section. | + +--------+ + + + documented in this encounter Results XR Knee Right 3 Vw (09/02/2016 2:48 PM PDT) + + | Specimen | + + | | + + + + + | Narrative | Performed At | + + + | EXAMINATION: KNEE 3+ VIEW /RIGHT HISTORY: RT KNEE PAIN | | | COMPARISON STUDY: None FINDINGS: Films in multiple projections | | | show near mnoi-mm-weko articulation of the medial compartment. | | | Moderate productive osteophytes are noted medially. Prominent | | | patellofemoral osteophytes are also present. Small lateral | | | compartment osteophytes. No subluxation. No dislocation. | | | Diffusely decreased bone mineral density. 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 Decreased bone mineral | | | density. Dexa scan evaluation is recommended. JOB #: [id number] | | | Digitally Released by: Wayen Moraes Read By: WAYNE Bryant | | | MD DIMITRY Date: 09/02/2016 16:10 | | + + + + + | Procedure Note | + + | Victor Hugo, Rad Results In - 04/10/2017 12:42 PM PST EXAMINATION: | | KNEE 3+ VIEW /RIGHT | | | | HISTORY: | | RT KNEE PAIN | | | | COMPARISON STUDY: | | None | | | | FINDINGS: | | Films in multiple projections show near [id number]-cf-bnhg articulation of the | | medial compartment. Moderate productive osteophytes are noted medially. | | Prominent patellofemoral osteophytes are also present. Small lateral | | compartment osteophytes. No subluxation. No dislocation. Diffusely | | decreased bone mineral density. | | | | IMPRESSION: | | Tricompartmental osteoarthritis most significantly involving the medial and | | patellofemoral compartment. | | Decreased bone mineral density. Dexa scan evaluation is recommended. | | | | | | JOB #: [id number] | | Digitally Released by: Wayne Moraes | | | | | | Read By: WAYNE MORAES MD | | Date: 09/02/2016 16:10 | | | + + documented in this encounter Visit Diagnoses Not on filedocumented in this encounter"
--- OUTSIDE RECORDS SUMMARY | ~2019-07-26 | XMS | Encounter Summary ---
Demographics + + + | Address | [address] | | | [place] [address] | + + + | Home Phone | | + + + | Preferred Language | Unknown | + + + | Marital Status | | + + + | Judaism Affiliation | PRO | + + + | Race | White | + + + | Ethnic Group | Not or | + + + Author + + + | Author | [facility] | + + + | Organization | [facility] | + + + | Address | Unknown | + + + | Phone | Unavailable | + + + Support + + + + + | Name | Relationship | Address | Phone | + + + + + | Hector Mack | ECON | [address] | | | | | [place] | | | | | [address] | | + + + + + Care Team Providers + +------+ + | Care Credit Card Control Clerk Name | Role | Phone | + [...] + + | 03/12/ | Hospital | [address] | Renato Chow MD | | | 2010 - | Encounter | [address] | | | | | | [facility] | | | | 03/13/ | | [place], [place] | | | | 2010 | | [address] | | | | | | [phone] | | | +--------+ + + + [...] INPATIENT PHYSICIAN DISCHARGE SUMMARY Attending Physician: Renato Chow MD PCP: Tuan Chan MD Admission Date: [...] re removal. Feel free to call the [facility] urology clinic as needed for any additional questions . Your Follow-Up Plan Follow-up information has not been specified. Other Discharge Orders and Instructions Please contact Urology clinic ([phone]) during business hours or the Urology resident neonatal nurse practitioner ([phone]) after business hours for: 1. Redness or [...] Physician: Renato Chow MD Patient: GERMAINE HEARD [id number] 24H events/Subjective: No events overnight. Pain well [...] 03/13/11 0659 03/13/11699 - 03/14/11 0659 Shift 5915-2613 2091-4911 0256-9865 Daily Total 6750-8043 7012-0465 6145-3810 Daily Total I N T A K E [address] 1080 1600 I.V. 1550 429 400 2726 5 5 Shift Total 1550 1320 1880 4750 5 5 O U T P U T Urine 800 147 982 6291 200 200 Shift Total 800 964 450 6957 200 200 Medication: acetaminophen (aka TYLENOL) tablet [...] [facility] DEPARTMENT | [address] | [place] [address] | | | PATHOLOGY | [address] [...] | + + + + + | [facility] | [address] | [place] [address] | | | PATHOLOGY | [address] [...] [place], | | | | | | [facility] [address] | | | | | | [phone] | | | | | | | | | | | | [email or web address], | | | | | | Alma [...] [facility] | [address] | [place], [place] | | | [facility] | | [address] | | + + + + + [...]
--- OUTSIDE RECORDS SUMMARY | ~2019-07-26 | XMS | Encounter Summary ---
Demographics + + + | Address | [address] | | | [place] [address] | + + + | Home Phone | | + + + | Preferred Language | Unknown | + + + | Marital Status | | + + + | Episcopal Affiliation | PRO | + + + | Race | White | + + + | Ethnic Group | Not or | + + + Author + + + | Author | [facility] | + + + | Organization | [facility] | + + + | Address | Unknown | + + + | Phone | Unavailable | + + + Support + + + + + | Name | Relationship | Address | Phone | + + + + + | Hector Mack | ECON | [address] | | | | | [place] | | | | | [address] | | + + + + + Care Team Providers + +------+ + | Care Stock Room Manager Name | Role | Phone | + +------+ + | Tuan Chan MD | PCP | | + +------+ + Encounter Details +--------+ + + + + | Date | Type | Department | Care Team | Description | +--------+ + + + + | 06/02/ | Ancillary | Registration [address] | [address], | | | 2007 | Registratio | [address] | [address] | | | | n | [address]: [id number] | [place], [place] | | | | | [place], [place] | [address] | | | | | [address] | [phone] | | | | | [phone] | | | +--------+ + + + [...]
--- OUTSIDE RECORDS SUMMARY | ~2019-07-26 | XMS | Encounter Summary ---
Demographics + + + | Address | [address] | | | [place] [address] | + + + | Home Phone | | + + + | Preferred Language | Unknown | + + + | Marital Status | | + + + | Gnosticism Affiliation | PRO | + + + | Race | White | + + + | Ethnic Group | Not or | + + + Author + + + | Author | [facility] | + + + | Organization | [facility] | + + + | Address | Unknown | + + + | Phone | Unavailable | + + + Support + + + + + | Name | Relationship | Address | Phone | + + + + + | Hector Mack | ECON | [address] | | | | | [place] | | | | | [address] | | + + + + + Care Team Providers + +------+ + | Care Science Faculty Member Name | Role | Phone | + [...] | [address]: [id number] | [address] [place], | | | | | [place], [place] | [place] [address] | | | | | [address] | [phone] | | | | | [phone] | | | +--------+ + + + [...]
--- OUTSIDE RECORDS SUMMARY | ~2019-07-26 | XMS | Encounter Summary ---
Demographics + + + | Address | [address] | | | [place] [address] | + + + | Home Phone | | + + + | Preferred Language | Unknown | + + + | Marital Status | | + + + | Restorationist Affiliation | PRO | + + + [...] [place] | | | | | [address] | | + + + + + Care Team Providers + +------+ + | Care Telephone Instrument Supervisor Name | Role | Phone | + +------+ + | Tuan Chan MD | PCP | | + +------+ + Encounter Details +--------+ + + + + | Date | Type | Department | Care Team | Description | +--------+ + + + + | 05/23/ | Letter-Justice | | Letter, Clinic | Letters | | 2006 | scribed | | | | +--------+ + + [...] as of this encounter Progress Notes Interface, Ladle Repairman In - 05/24/2005 2:07 AM [facility] [id number] 05/23/2005 05/23/2005 [id number] ARETHA RAE [place] [address] [place] [address] or May 23, 2005 Bryan Garza M.D. [address] [place] [address] RE: GERMAINE CARIAS MR #: [id number] Dear Dr. Garza: I saw your patient, Mrs. Germaine Carias in my office on , May 23, 2005. I went over her records and those of Dr. Walker in [place]. This pleasant, obese, 59-year-old female has a long history of dysphagia for solids and liquids. She did have quite a long history of GERD prior to that which is controlled well on ranitidine. However, about perhaps 8 to 10 years ago, she noted dysphagia which has been mildly progressive over the years. The dysphagia is present both for solids and liquids and is especially worse with milk, and she has to chew her foods really well. Despite eating slowly and chewing her foods well, she vomits after meals due to food sticking in her esophagus. She vomits several times a week. She has had periodic esophageal balloon dilations without success, and she was told she had a narrowing of her esophagus. However, her workup indicates no definite esophageal stricture, and indeed on her last endoscopy on October 16, 2004, by Dr. Walker, there was a dilated esophagus which seemed fairly atonic, but there was only slight resistance passing the scope through the EG junction. Dilation was performed up to a 20-[employer] balloon, and the patient claims that she only sustained relief for a few days. There was no obvious ring or peptic stricture seen. On barium studies, although 1 barium study seemed to show a stricture, another one showed no definite stricture but tertiary contractions and a dilated esophagus. She has had an esophageal manometry which showed no evident peristaltic contractions in the esophagus, although the LES function was not mentioned on the report. The patient is quite obese and really has not lost any weight due to this dysphagia although she has been on a diet and exercise over the last 6 months and has lost about 22 pounds voluntarily. Prior medical conditions include all of the ravages of obesity includin. Diabetes mellitus controlled on glyburide. 2. Hypercholesterolemia, controlled on lovastatin. 3. Hypertension, treated with Toprol 5 mg a day and Klor-Con. 4. Coronary artery disease with prior coronary stent placement and 4-vessel CABG in 1999. She is on Plavix for her coronary disease and stenting. She has occasional nitroglycerin. She takes lisinopril. She also takes Celebrex for arthritis in her back and knees and hydrocodone and morphine sulfate for back pain. Prior surgery includes appendectomy, tonsillectomy, umbilical herniorrhaphy, shoulder surgery, cholecystectomy, quadruple bypass and coronary stent placement. SHE IS ALLERGIC TO CODEINE. Family history includes father who of congestive failure, mother of a heart attack who had colon cancer at age 64. The patient had a normal colonoscopy 1 year ago. Brother with cardiac problems. The patient is with 1 child. She is unemployed. She smoked, has about a 12-fnxc-rgpz smoking history but has not smoked in 17 years. 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 Medical list includes Celebrex 200 mg a day, lovastatin 20 mg a day, glipizide 5 mg a day, Toprol 5 mg a day, Klor-Con 10 mg twice a day, Plavix 75 mg a day, lisinopril 5 mg a day, bumetanide 1 mg twice a day, ranitidine 150 mg twice a day, nitroglycerin p.r.n., albuterol p.r.n., hydrocodone 3 times a day, morphine sulfate twice a day. Physical examination reveals a pleasant, alert, 59-year-old female who is obese, and in no distress. Her weight is 310 pounds, blood pressure is 126/78 in the left arm, pulse is 72 and regular, respiration 12, temperature is 98.4. She is 5 feet 5 inches tall. Her HEENT examination reveals her neck is supple. There is no thyromegaly. There is scleral icterus or conjunctival pallor. Her chest is clear to percussion and auscultation. Cardiac examination reveals no murmurs, thrills, or friction rubs. Breasts are pendulous without masses. Her chest reveals a scar from her CABG. Her abdomen reveals 2 scars, 1 from her open cholecystectomy and 1from an umbilical herniorrhaphy. There is no umbilicus present. There are no masses or tenderness, there are no bruits, and there is no hepatosplenomegaly. Peripheral pulses are normal. There is no edema. Rectal examination is not done. Impression: 1. Chronic dysphagia, probably secondary to esophageal achalasia, doubt esophageal stricture. 2. Marked obesity. 3. Diabetes mellitus, medication controlled. 4. Hypertension, medication controlled. 5. Osteoarthritis. 6. Coronary artery disease status post coronary artery bypass graft and quadruple bypass. Discussion: This patient probably has achalasia of her esophagus as evidenced by chronic dysphagia for liquids and solids, a dilated esophagus seen on both endoscopy and barium swallow, and no documented stricture and failure to respond to dilation with up to a 20-mm through the scope balloon. Due to her marked obesity and high risk for surgery, I think it would be worthwhile if we confirm this diagnosis to start with Botox injection which if it works may give her relief for 6 to 12 months and could be repeated as needed. If this does not alleviate her symptomatology or does so for a short period, then we will refer her to consider laparoscopic Heller procedure for achalasia. Accordingly, the patient will be set up for repeat esophageal manometry, endoscopy, and Botox injection into her lower esophageal sphincter. Thank you very much for referring this interesting and challenging patient. Sincerely, Wes Wolff M.D. Ren / PASCUAL [id number] / [id number] / [id number] / cc: Lalo Walker M.D. [facility] [address] [place] [phone] documented i n this encounter Plan of Treatment Not on filedocumented as of this encounter Visit Diagnoses Not on filedocumented in this encounter"
--- OUTSIDE RECORDS SUMMARY | ~2019-07-26 | XMS | Encounter Summary ---
Demographics + + + | Address | [address] | | | [place] [address] | + + + | Home Phone [...] [address] | | | | | [place] | | | | | [address] | | + + + + + Care Team Providers + +------+ + | Care Ward Helper Name | Role | Phone | + +------+ + | Tuan Chan MD | PCP | | + +------+ + Reason for Visit + + + | Reason | Comments | + + + | Follow-up visit | | + + + Encounter Details +--------+---------+ + + + | Date | Type | Department | Care Team | Description | +--------+---------+ + + + | 03/03/ | Office | Digestive Health | [place], | [place]; | | 2005 | Visit | Center [address] | | Obesity | | | | [place] Mailcode: [address] | | | | | | [facility] | | | | | | and Healing, | | | | | | Building [address]th | | | | | | Floor [place], [place] | | | | | | [address] | | | | | | [phone] | | | +--------+---------+ + + + [...] + + + | Blood Pressure | 120/80 | 03/03/2006 11:29 AM | | | | | PST | | + + + + + | Pulse | 76 | 03/03/2006 11:29 AM | | | | | PST | | + + + + + | Temperature | - | - | | + + + + + | Respiratory Rate | 16 | 03/03/2006 11:29 AM | | | | | PST | | + + + + + | Oxygen Saturation | - | - | | + + + + + | Inhaled Oxygen | - | - | | | Concentration | | | | + + + + + | Weight | 128.8 kg (284 lb) | 03/03/2006 11:29 AM | | | | | PST | | + + + + + | Height | 162.6 cm (5' 4") | 03/03/2006 11:29 AM | | | | | PST | | + + + + + | Body Mass Index | 48.75 | 03/03/2006 11:29 AM | | | | | PST | | + + + + + documented in this encounter Progress Notes Fatmata Stone Md - 03/03/2006 11:57 AM PSTMrs Jenni Mack is about 1 month post lap heller my otomy and RNY gastric by pass. She is doin very well. No fruther difficulty with swallowing both liquid or solid food. She has lost 22 lbs (306 to 284 lbs). Her GERD, NIIDM and Sleep apnea has greatly improved. On Physical exam, her wound are well healed. Of note, she has some seborroic type skin rash at her back that is not painful. She is on her standard post gastric by pass medications. Impression and plan. Doing well from Achalasia and weight reduction stand points. We encourage her to advance sl owing into solid food. She understand the important of regular exercise to sustain continue weight lost. She also understand the important of regular follow up. The next will be in 2 m [facility] time. documented in this encounter Plan of Treatment Not on filedocumented as of this encounter Visit Diagnoses + + | Diagnosis | + + | Achalasia Achalasia and cardiospasm | + + | Obesity Obesity, unspecified | + + documented in this encounter
--- OUTSIDE RECORDS SUMMARY | ~2019-07-26 | XMS | Encounter Summary ---
Demographics + + + | Address | BAD ADDRESS | | | [place] [address] | + + + | Home Phone | | + + + | Preferred Language | Unknown | + + + | Marital Status | | + + + | Holiness Affiliation | 1077 | + + + | Race | Unknown | + + + | Ethnic Group | Unknown | + + + Author + + + | Author | [facility] | | | and [place] | + + + | Organization | [facility] | | | and [place] | + + + | Address | Unknown | + + + | Phone | Unavailable | + + + Support + + + + + | Name | Relationship | Address | Phone | + + + + + | Hector Mack | ECON | [address] | | | | | [place] [address] | | + + + + + | Najma Krishnamurthy | ECON | Unknown | | + + + + + | Hector Mack | ECON | [address] | | | | | [place] | | | | | [address] | | + + + + + | Najma Sanches | ECON | Unknown | | + + + + + Care Team Providers + +------+ + | Care Test Kitchen Home Economist Name | Role | Phone | + +------+ + PCP | Unavailable | + +------+ + Encounter Details +--------+ + + + + | Date | Type | Department | Care Team | Description | +--------+ + + + + | 05/18/ | Hospital | [facility] | | | | 2000 | Encounter | MED CTR EMER[facility]Y | | | | | | CENTER [address] | | | | | | [place] | | | | | | [address] | | | | | | [phone] | | | +--------+ + + + [...]
--- OUTSIDE RECORDS SUMMARY | ~2019-07-26 | XMS | Encounter Summary ---
Demographics + + + | Address | [address] | | | [place] [address] | + + + | Home Phone | | + + + | Preferred Language | Unknown | + + + | Marital Status | | + + + | Restorationist Affiliation | PRO | + + + | Race | White | + + + | Ethnic Group | Not or | + + + Author + + + | Author | [facility] | + + + | Organization | [facility] | + + + | Address | Unknown | + + + | Phone | Unavailable | + + + Support + + + + + | Name | Relationship | Address | Phone | + + + + + | Hector Mack | ECON | [address] | | | | | [place] | | | | | [address] | | + + + + + Care Team Providers + +------+ + | Care Oil Rag Washer Name | Role | Phone | + [...] Julia Buckley | 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 at [facility] [address] | [address] | (Primary Dx) | | | | [address] [facility] | [facility], | | | | | [facility] and | [place] [address] | | | | | [facility] 1, | [phone] | | | | | 16th Floor | | | | | | [place], [place] | | | | | | [address] | | | | | | [phone] | | | +--------+---------+ + + + [...] in 06/06 --s/p CABG in 2000 in [facility] --s/p cholecystectomy 35 years ago --s/p appy [...] weeks Julia Buckley PA-C Department of Dermatology [facility] documented in this encounter Plan of Treatment Not on filedocumented as of this encounter Visit Diagnoses + + | Diagnosis | + + | 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
--- OUTSIDE RECORDS SUMMARY | ~2019-07-26 | XMS | Encounter Summary ---
Demographics + + + | Address | [address] | | | [place] [address] | + + + | Home Phone | | + + + | Preferred Language | Unknown | + + + | Marital Status | | + + + | Adventism Affiliation | PRO | + + + | Race | White | + + + | Ethnic Group | Not or | + + + Author + + + | Author | [facility] | + + + | Organization | [facility] | + + + | Address | Unknown | + + + | Phone | Unavailable | + + + Support + + + + + | Name | Relationship | Address | Phone | + + + + + | Hector Mack | ECON | [address] | | | | | [place] | | | | | [address] | | + + + + + Care Team Providers + +------+ + | Care Silk Hanger Name | Role | Phone | + +------+ + | Tuan Chan MD | PCP | | + +------+ + Encounter Details +--------+ + + + + | Date | Type | Department | Care Team | Description | +--------+ + + + + | 08/05/ | Results | Dermatology | Khoa Manuel, | | | 2008 | Only | Medical at [facility] [address] | ,PhD Gloria | | | | | [address] [facility] | Allergy Asthma | | | | | for Health and | Dermatology [address] | | | | | [place] [address], | [facility] | | | | | 16th Floor | [place] [address] | | | | | [place], [place] | [phone] | | | | | [address] | | | | | | [phone] | | | +--------+ + + + [...] | + +--------+ + + + | DERMATOPATHOLOGY([facility] Routin | 08/05/2008 | | Results for this | | [facility]) | e | | | procedure are in the | | | | | | results section. | + +--------+ + + + documented in this encounter Results DERMATOPATHOLOGY([facility]) (08/05/2008) + + + + + + | Component | Value | Ref Range | Performed | Pathologist | | | | | At | Signature | + + + + + + | DERMATOPATH | SOURCE OF SPECIMEN:A | | | | | OLOGY(WET | FIRST TISSUE LEVEL IV | | | | | MNT) | [id number] | | | | | | DESCRIPTION:Punch bx x3; | | | | | | Mid back, Rt. groin, | | | | | | central chest; 49 year | | | | | | h/o undiagnosedrash. | | | | | | Erythematous, eroded | | | | | | papules and plaques in | | | | | | groin, under | | | | | | breasts,armpits. | | | | | | Hyperkeratotic hung | | | | | | papules on back. flat | | | | | | topped papules on | | | | | | palmsand dorsal hands. | | | | | | Positive papules on hard | | | | | | palate; Darier's!GROSS | | | | | | DESCRIPTION:The specimen | | | | | | is received in | | | | | | formalin, labeled with | | | | | | the patient's name | | | | | | andconsists of three hung | | | | | | punch biopsies. the | | | | | | first measuring 0.4 x | | | | | | 0.5cm,that is bisected. | | | | | | The second measuring | | | | | | 0.4 x 0.2cm, that is | | | | | | inked blackand bisected. | | | | | | The third measuring | | | | | | 0.4 x 0.4cm, that is | | | | | | inked green andbisected. 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.NOTE: In this | | | | | | clinical scenario, | | | | | | DARIER'S DISEASE is most | | | | | | | | | | | | likely.MMT:emr08/10/08Cas | | | | | | e reviewed by:Chaim Chew | | | | | | Kingsley | | | | | | Chey/Dermatopathology | | | | | | FellowJose Collier, | | | | | | Chey Chavarria / | | | | | | DermatopathologistJessica | | | | | | ring Diagnostician: | | | | | | Jose Collier Jr., | | | | | | CheyPathologistElectroni | | | | | | brittany Signed 08/15/2008 | | | | + + + + + + + + | Specimen | + + | Other | + + + + + + + | Performing | Address | City/State/Zipcode | Phone Number | | Organization | | | | + + + + + | [facility] | [address] | [place] [address] | | | DERMATOPATHOLOGY | [address] | | | + + + + + documented in this encounter Visit Diagnoses Not on filedocumented in this encounter"
--- OUTSIDE RECORDS SUMMARY | ~2019-07-26 | XMS | Encounter Summary ---
Demographics + + + | Address | [address] | | | [place] [address] | + + + | Home Phone | | + + + | Preferred Language | Unknown | + + + | Marital Status | | + + + | Jewish Affiliation | PRO | + + + [...] | [address] | | | | | [place] | | | | | [address] | | + + + + + Care Team Providers + +------+ + | Care Multicut Line Operator Name | Role | Phone | + +------+ + | Tuan Chan MD | PCP | | + +------+ + Encounter Details +--------+ + + + + | Date | Type | Department | Care Team | Description | +--------+ + + + + | 02/06/ | Respiratory | | Other, Faculty | | | 2005 | Therapy | | [phone] | | +--------+ + + + + [...] | | | | | Ap Butler, MEASUREMENT COORDINATOR | | | | + + + [...] SPECIAL | [address] | [place], [place] | | | DIAGNOSTICS - | [address] | [address] | | | PULMONARY FUNCTION | | [...] [facility] DOWNS | [address] | [place], [place] | | | DIAGNOSTICS - | [address] | [address] | | | PULMONARY FUNCTION | | [...] [facility] | [address] | [place], [place] | | | DIAGNOSTICS - | [address] | [address] | | | PULMONARY FUNCTION | | [...] [facility] | [address] | [place], [place] | | | DIAGNOSTICS - | [address] | [address] | | | PULMONARY FUNCTION | | [...] | | | | | Noe Alas, MEASUREMENT COORDINATOR | | | | + + + [...] [facility] | [address] | [place], [place] | | | DIAGNOSTICS - | [address] | [address] | | | PULMONARY FUNCTION | | [...] [facility] DOW[facility] | [address] | [place], [place] | | | DIAGNOSTICS - | [address] | [address] | | | PULMONARY FUNCTION | | [...] | | | | | Y | Jeff Watts RCP | | | | + [...] [facility] | [address] | [place], [place] | | | DIAGNOSTICS - | [address] | [address] | | | PULMONARY FUNCTION | | [...] | | | | | | Jeff Watts MEASUREMENT COORDINATOR | | | | + + + [...] [facility] | [address] | [place], [place] | | | DIAGNOSTICS - | [address] | [address] | | | PULMONARY FUNCTION | | [...] | | | | | Mark Giraldo, MEASUREMENT COORDINATOR | | | | + + + [...] [facility] | [address] | [place], [place] | | | DIAGNOSTICS - | [address] | [address] | | | PULMONARY FUNCTION | | [...] [facility] | [address] | [place], [place] | | | DIAGNOSTICS - | [address] | [address] | | | PULMONARY FUNCTION | | [...] [facility] | [address] | [place], [place] | | | DIAGNOSTICS - | [address] | [address] | | | PULMONARY FUNCTION | | [...] 10. | | | | | | POWER SYSTEM OPERATOR IN USE: PATIENT SELF | | | [...] NONE | | | | | | [id number] HOURS . . | | | | [...] | | | | . Sirisha Vigil, [facility] | | | | + + [...] [facility] | [address] | [place], [place] | | | DIAGNOSTICS - | [address] | [address] | | | PULMONARY FUNCTION | | [...] [facility] | [address] | [place], [place] | | | DIAGNOSTICS - | [address] | [address] | | | PULMONARY FUNCTION | | | | + + + + + documented in this encounter Visit Diagnoses Not on filedocumented in this encounter"
--- OUTSIDE RECORDS SUMMARY | ~2019-07-26 | XMS | Encounter Summary ---
Demographics + + + | Address | BAD ADDRESS | | | [place] [address] | + + + | Home Phone | | + + + | Preferred Language | Unknown | + + + | Marital Status | | + + + | Congregation Affiliation | 1077 | + + + | Race | Unknown | + + + | Ethnic Group | Unknown | + + + Author + + + | Author | [facility] | | | and [place] | + + + | Organization | [facility] | | | and [place] | + + + | Address | Unknown | + + + | Phone | Unavailable | + + + Support + + + + + | Name | Relationship | Address | Phone | + + + + + | Hector Mack | ECON | [address] | | | | | [place] [address] | | + + + + + | Najma Krishnamurthy | ECON | Unknown | | + + + + + | Hector Mack | ECON | [address] | | | | | [place] | | | | | [address] | | + + + + + | Najma Sanches | ECON | Unknown | | + + + + + Care Team Providers + +------+ + | Care Charge Manager Name | Role | Phone | + +------+ + PCP | Unavailable | + +------+ + Encounter Details +--------+ + + + + | Date | Type | Department | Care Team | Description | +--------+ + + + + | 06/01/ | Hospital | [facility] | | | | 2005 | Encounter | MED CTR XRAY [address] | | | | | | [address] | | | | | | [place] [address] | | | | | | [phone] | | | +--------+ + + + [...]
--- OUTSIDE RECORDS SUMMARY | ~2019-07-26 | XMS | Encounter Summary ---
Demographics + + + | Address | [address] | | | [place] [address] | + + + | Home Phone [...] [place] | | | | | [address] | | + + + + + Care Team Providers + +------+ + | Care Filler Block Inserter Remover Name | Role | Phone | + +------+ + | Tuan Chan MD | PCP | | + +------+ + Encounter Details +--------+ + + + + | Date | Type | Department | Care Team | Description | +--------+ + + + + | 06/17/ | Results | Urology Adult | Noe Hdez, | | | 2007 | Only | [address] | [address] | | | | | Mailcode: [id number] | [place], [place] | | | | | [facility] | [address] | | | | | and Healing, | [phone] | | | | | | | | | | | Floor [place], [place] | | | | | | [address] | | | | | | [phone] | | | +--------+ + + + [...] | | + +---------+--------+ + + | OR FLUOROSCOPY > 1 | Imaging | Routin | | 06/18/2007 9:40 AM | | HOUR | | e | | PDT | + +---------+--------+ + + documented as of this encounter Procedures + +--------+ + + + | Procedure Name | Priori | Date/Time | Associated Diagnosis | Comments | | | ty | | | | + +--------+ + + + | X-RAY FLUOROSCOPY IN | Routin | 06/18/2007 | | Results for this | | OR > 1 HOUR | e | 9:39 AM | | procedure are in the | | | | PDT | | results section. | + +--------+ + + + documented in this encounter Results OR FLUOROSCOPY > 1 HOUR (06/18/2007 9:39 AM PDT) + + + + + + | Component | Value | Ref Range | Performed | Pathologist | | | | | At | Signature | + + + + + + | OR FLUORO > | Four spot intraoperative | | | | | 1 HOUR | images documenting | | | | | | ureteroscopy and | | | | | | double-Jureteral stent | | | | | | placement. A laminated | | | | | | right upper | | | | | | quadrantcalcification | | | | | | corresponds to known | | | | | | interpolar calculus and | | | | | | isunchanged.I have | | | | | | personally viewed this | | | | | | procedure/exam and | | | | | | reviewed this | | | | | | report.STATUS FINAL / | | | | | | Dr. STACEY ERNANDEZ | | | | + + + [...]
--- OUTSIDE RECORDS SUMMARY | ~2019-07-26 | XMS | Encounter Summary ---
Demographics + + + | Address | [address] | | | [place] [address] | + + + | Home Phone | | + + + | Preferred Language | Unknown | + + + | Marital Status | | + + + | Latter Day Affiliation | PRO | + + + [...] [place] | | | | | [address] | | + + + + + Care Team Providers + +------+ + | Care Dinkey Engine Firer/Fireman Name | Role | Phone | + +------+ + | Tuan Chan MD | PCP | | + +------+ + Reason for Visit + + + | Reason | Comments | + + + | Follow-up encounter | | + + + Encounter Details +--------+---------+ + + + | Date | Type | Department | Care Team | Description | +--------+---------+ + + + | 05/05/ | Office | [facility] | Herberth Ayala, | Obesity (Primary Dx) | | 2006 | Visit | [place] [address] | | | | | | [place] Mailcode: CH4S | | | | | | [facility] | | | | | | and Healing, | | | | | | Building [address], [address]th | | | | | | Floor [place], [place] | | | | | | [address] | | | | | | [phone] | | | +--------+---------+ + + + [...] + + + | Blood Pressure | 110/56 | 05/05/2006 11:49 AM | | | | | PST | | + + + + + | Pulse | 61 | 05/05/2006 11:49 AM | | | | | PST | | + + + + + | Temperature | 36.6 C (97.8 F) | 05/05/2006 11:49 AM | | | | | PST | | + + + + + | Respiratory Rate | 16 | 05/05/2006 11:49 AM | | | | | PST | | + + + + + | Oxygen Saturation | - | - | | + + + + + | Inhaled Oxygen | - | - | | | Concentration | | | | + + + + + | Weight | 114.2 kg (251 lb | 05/05/2006 11:49 AM | | | | 12.8 oz) | PST | | + + + + + | Height | 162.6 cm (5' 4") | 05/05/2006 11:49 AM | | | | | PST | | + + + + + | Body Mass Index | 43.22 | 05/05/2006 11:49 AM | | | | | PST | | + + + + + documented in this encounter Progress Notes Jennifer Johnson, Scarlett Fortune - 05/05/2006 6:03 PM PSTFormatting of this note might be different from yosvany hernández. 05/05/2006 BARIATRIC FOLLOW-UP Germaine Heard is a 60 y.o. female who underwent a gastric bypass procedure on 02/05/06 . She has been feeling well and has no complaints. Improvement noted in arthritis, CAD, NIDDM, and HTN. Has had resolution of GERD and no deneen darrin has sleep apnea sx. Lipids have not been checked. Medications: MVI: yes Calcium supplement: yes Vit D: yes B12: yes Actigall: no Rantidine : yes Narcotics: no Symptoms: Nausea: <1 time per week when she was learning what she could eat Dysphagia: None Vomiting: <1 time per week when she was learning what she could eat Heartburn: None Abd Pain: None Constipation: None Diarrhea: None Physical exam: Last 1 Encounter Wt Readings: Date Wt 05/05/2006 114.216 kg (251 lbs 12.8 oz) Body mass index is 43.22 kg/(m^2). General appearance: healthy, alert and cooperative Lungs: Percussion normal. Good diaphragmatic excursion. Lungs clear to auscultation bilater ally Cardiac: Rate, rhythm, regular, no murmur, gallop or bruits. No peripheral edema. Abdomen: obese, soft, NT, ND Incision: Well healed Impression: 3 mos s/p gastric bypass with 59 lb. Wt loss. Doing well. Plan: See orders placed at this encounter for labs. Continue diet and exercise. F/U 3 mos . Established 15 min documented in this encoun ter Plan of Treatment Not on filedocumented as of this encounter Results COMP METABOLIC SET (05/05/2006 [...] Performed At | + + + | 100842 Estimated GFR = 60 mL/min/1.73 sq m if non- | [facility] | | [id number] Estimated GFR > 60 mL/min/1.73 sq m [...] | + + + + + | [facility] DEPARTMENT OF | [address] | [place] [address] | | | PATHOLOGY | [address] | | | + + + + + | [facility] | [address] | [place] [address] | | | PATHOLOGY | [address] [...] | + + + + + | [facility] | [address] | [place] [address] | | | PATHOLOGY | [address] | | | + + + + + | [facility] | [address] | [place] [address] | | | PATHOLOGY | [address] | | | + + + + + documented in this encounter Visit Diagnoses + + | Diagnosis | + + | Obesity - Primary Obesity, unspecified | + + documented in this encounter
--- OUTSIDE RECORDS SUMMARY | ~2019-07-26 | XMS | Encounter Summary ---
Demographics + + + | Address | [address] | | | [place] [address] | + + + | Home Phone [...] [place] | | | | | [address] | | + + + + + Care Team Providers + +------+ + | Care Director Risk Name | Role | Phone | + +------+ + | Tuan Chan MD | PCP | | + +------+ + Encounter Details +--------+ + + + + | Date | Type | Department | Care Team | Description | +--------+ + + + + | 11/22/ | Ancillary | Registration [id number] | Papi Johnson MD | | | 2005 | Registratio | [address] | [address] | | | | n | [place] Mailcode: [id number] | [place], | | | | | [place], [place] | [place] [address] | | | | | [address] | [phone] | | | | | [phone] | | | +--------+ + + + [...]
--- OUTSIDE RECORDS SUMMARY | ~2019-07-26 | XMS | Encounter Summary ---
Demographics + + + | Address | BAD ADDRESS | | | [place] [address] | + + + | Home Phone | | + + + | Preferred Language | Unknown | + + + | Marital Status | | + + + | Muslim Affiliation | 1077 | + + + | Race | Unknown | + + + | Ethnic Group | Unknown | + + + Author + + + | Author | [facility] | | | and [place] | + + + | Organization | [facility] | | | and [place] | + + + | Address | Unknown | + + + | Phone | Unavailable | + + + Support + + + + + | Name | Relationship | Address | Phone | + + + + + | Hector Mack | ECON | [address] | | | | | [place] [address] | | + + + + + | Najma Krishnamurthy | ECON | Unknown | | + + + + + | Hector Mack | ECON | [address] | | | | | [place] | | | | | [address] | | + + + + + | Najma Sanches | ECON | Unknown | | + + + + + Care Team Providers + +------+ + | Care Program Evaluator Name | Role | Phone | + +------+ + | Tuan Chan MD | PCP | | + +------+ + Reason for Visit +--------+ + | Reason | Comments | +--------+ + | Other | | +--------+ + Encounter Details +--------+ + + + + | Date | Type | Department | Care Team | Description | +--------+ + + + + | 02/04/ | Telephone | [facility] | Landen Zimmer, | Other | | 2018 | | HOSPITAL DERMATOLOGY | [facility] [facility] | | | | | CLIN[address] | [place], | | | | | [address] [place], | [place] [address] | | | | | [place] [address] | [phone] | | | | | [phone] | | | +--------+ + + + [...]
--- OUTSIDE RECORDS SUMMARY | ~2019-07-26 | XMS | Encounter Summary ---
Demographics + + + | Address | [address] | | | [place] [address] | + + + | Home Phone | | + + + | Preferred Language | Unknown | + + + | Marital Status | | + + + | Jain Affiliation | PRO | + + + | Race | White | + + + | Ethnic Group | Not or | + + + Author + + + | Author | [facility] | + + + | Organization | [facility] | + + + | Address | Unknown | + + + | Phone | Unavailable | + + + Support + + + + + | Name | Relationship | Address | Phone | + + + + + | Hector Mack | ECON | [address] | | | | | [place] | | | | | [address] | | + + + + + Care Team Providers + +------+ + | Care Veterinarian Laboratory Animal Care Name | Role | Phone | + [...] | | | | | | [place] [address] | | | +--------+--------+ + + + [...]
--- OUTSIDE RECORDS SUMMARY | ~2019-07-26 | XMS | Encounter Summary ---
Demographics + + + | Address | [address] | | | [place] [address] | + + + | Home Phone | | + + + | Preferred Language | Unknown | + + + | Marital Status | | + + + | Pentecostalism Affiliation | PRO | + + + | Race | White | + + + | Ethnic Group | Not or | + + + Author + + + | Author | [facility] | + + + | Organization | [facility] | + + + | Address | Unknown | + + + | Phone | Unavailable | + + + Support + + + + + | Name | Relationship | Address | Phone | + + + + + | Hector Mack | ECON | [address] | | | | | [place] | | | | | [address] | | + + + + + Care Team Providers + +------+ + | Care Activated Sludge Attendant Name | Role | Phone | + +------+ + | Tuan Chan MD | PCP | | + +------+ + Encounter Details +--------+ + + + + | Date | Type | Department | Care Team | Description | +--------+ + + + + | 05/30/ | Hospital | Registration [id number] | Wes Wolff MD | | | 2005 | Activity | [address] | [address] | | | | | [address] Mailcode: [id number] | [place], [place] | | | | | [place], [place] | [address] | | | | | [address] | [phone] | | | | | [phone] | | | +--------+ + + + [...]
--- OUTSIDE RECORDS SUMMARY | ~2019-07-26 | XMS | Encounter Summary ---
Demographics + + + | Address | [address] | | | [place] [address] | + + + | Home Phone | | + + + | Preferred Language | Unknown | + + + | Marital Status | | + + + | Islam Affiliation | PRO | + + + | Race | White | + + + | Ethnic Group | Not or | + + + Author + + + | Author | [facility] | + + + | Organization | [facility] | + + + | Address | Unknown | + + + | Phone | Unavailable | + + + Support + + + + + | Name | Relationship | Address | Phone | + + + + + | Hector Mack | ECON | [address] | | | | | [place] | | | | | [address] | | + + + + + Care Team Providers + +------+ + | Care Civil Engineering Specialist Name | Role | Phone | + +------+ + | Tuan Chan MD | PCP | | + +------+ + Encounter Details +--------+ + + + + | Date | Type | Department | Care Team | Description | +--------+ + + + + | 09/09/ | Hospital | LAB REFERRED TESTS | | | | 2008 | Encounter | [address] | | | | | | [address] | | | | | | [place] | | | | | | [address] | | | +--------+ + + + [...]
--- OUTSIDE RECORDS SUMMARY | ~2019-07-26 | XMS | Encounter Summary ---
Demographics + + + | Address | BAD ADDRESS | | | [place] [address] | + + + | Home Phone | | + + + | Preferred Language | Unknown | + + + | Marital Status | | + + + | Yarsani Affiliation | 1077 | + + + | Race | Unknown | + + + | Ethnic Group | Unknown | + + + Author + + + | Author | [facility] | | | and [place] | + + + | Organization | [facility] | | | and [place] | + + + | Address | Unknown | + + + | Phone | Unavailable | + + + Support + + + + + | Name | Relationship | Address | Phone | + + + + + | Hector Mack | ECON | [address] | | | | | [place] [address] | | + + + + + | Najma Krishnamurthy | ECON | Unknown | | + + + + + | Hector Mack | ECON | [address] | | | | | [place] | | | | | [address] | | + + + + + | Najma Sanches | ECON | Unknown | | + + + + + Care Team Providers + +------+ + | Care Material Handler Name | Role | Phone | + +------+ + PCP | Unavailable | + +------+ + Encounter Details +--------+ + + + + | Date | Type | Department | Care Team | Description | +--------+ + + + + | 08/27/ | Hospital | [facility] | Duarte Moon MD | | | 2012 | Encounter | HOSPITAL RESPIRATORY | [address] | | | | | THERAPY [address] | [place] | | | | | [place] | [address] | | | | | [address] | | | | | | [phone] | | | +--------+ + + + [...]
--- OUTSIDE RECORDS SUMMARY | ~2019-07-26 | XMS | Encounter Summary ---
Demographics + + + | Address | [address] | | | [place] [address] | + + + | Home Phone | | + + + | Preferred Language | Unknown | + + + | Marital Status | | + + + | Anglican Affiliation | PRO | + + + | Race | White | + + + | Ethnic Group | Not or | + + + Author + + + | Author | [facility] | + + + | Organization | [facility] | + + + | Address | Unknown | + + + | Phone | Unavailable | + + + Support + + + + + | Name | Relationship | Address | Phone | + + + + + | Hector Mack | ECON | [address] | | | | | [place] | | | | | [address] | | + + + + + Care Team Providers + +------+ + | Care Table Cover Folder Name | Role | Phone | + [...] 2007 | Registratio | [address] | [address] | | | | n | [place] [address]: [id number] | [place], [place] | | | | | [place], [place] | [address] | | | | | [address] | [phone] | | | | | [phone] | | | +--------+ + + + [...]
--- OUTSIDE RECORDS SUMMARY | ~2019-07-26 | XMS | Encounter Summary ---
Demographics + + + | Address | [address] | | | [place] [address] | + + + | Home Phone [...] [place] | | | | | [address] | | + + + + + Care Team Providers + +------+ + | Care Predatory Animal Hunter Name | Role | Phone | + [...] as of this encounter Progress Notes Interface, Wire Stockkeeper In - 05/24/2005 2:07 AM [facility] [id number] 05/23/2005 05/23/2005 [id number] ARETHA RAE [place] [address] [place] [address] or May 23, 2005 Bryan Garza M.D. [address] [place] [address] RE: GERMAINE CARIAS MR #: [id number] Dear Dr. Garza: I saw your patient, Mrs. Germaine Carias in my office on , May 23, 2005. I went over her records and those of Dr. Walker in [place]. This pleasant, obese, 59-year-old female has a [...] junction. Dilation was performed up to a 20-Pitcairn Islander Microvasive balloon, and the patient claims that [...] is unemployed. She smoked, has about a 04-fwcj-glar smoking history but has not smoked in [...] Sincerely, Wes Wolff M.D. Ren / PASCUAL [id number] / [id number] / [id number] / cc: Lalo Walker M.D. [facility] [address] [place] [address] documented i n this encounter Plan of Treatment Not on filedocumented as of this encounter Visit Diagnoses Not on filedocumented in this encounter"
--- OUTSIDE RECORDS SUMMARY | ~2019-07-26 | XMS | Encounter Summary ---
Demographics + + + | Address | BAD ADDRESS | | | [place] [address] | + + + | Home Phone | | + + + | Preferred Language | Unknown | + + + | Marital Status | | + + + | Tenriism Affiliation | 1077 | + + + | Race | Unknown | + + + | Ethnic Group | Unknown | + + + Author + + + | Author | [facility] | | | and [place] | + + + | Organization | [facility] | | | and [...] | | | | | [place] [address] | | + + + + + | Najma Krishnamurthy | ECON | Unknown | | + + + + + | Hector Mack | ECON | [address] | | | | | [place] | | | | | [address] | | + + + + + | Najma Sanches | ECON | Unknown | | + + + + + Care Team Providers + +------+ + | Care Commanding Officer Motorized Squad Name | Role | Phone | + +------+ + PCP | Unavailable | + +------+ + Encounter Details +--------+ + + + + | Date | Type | Department | Care Team | Description | +--------+ + + + + | 10/05/ | Hospital | [facility] | Bo Smith | | | 2011 | Encounter | HOSPITAL EMERGENCY | MD [address] | | | | [address] | [facility] | | | | | [address] [place], [place] | [place], [place] | | | | | [address] | [address] | | | | | [phone] | [phone] | | | | | | | [...]
--- OUTSIDE RECORDS SUMMARY | ~2019-07-26 | XMS | Encounter Summary ---
Demographics + + + | Address | [address] | | | [place] [address] | + + + | Home Phone | | + + + | Preferred Language | Unknown | + + + | Marital Status | | + + + | Buddhism Affiliation | PRO | + + + | Race | White | + + + | Ethnic Group | Not or | + + + Author + + + | Author | [facility] | + + + | Organization | [facility] | + + + | Address | Unknown | + + + | Phone | Unavailable | + + + Support + + + + + | Name | Relationship | Address | Phone | + + + + + | Hector Mack | ECON | [address] | | | | | [place] | | | | | [address] | | + + + + + Care Team Providers + +------+ + | Care Assistant Kitchen Manager Name | Role | Phone | + +------+ + | Tuan Chan MD | PCP | | + +------+ + Encounter Details +--------+ + + + + | Date | Type | Department | Care Team | Description | +--------+ + + + + | 11/15/ | Ancillary | Registration [address] | Papi Johnson MD | | | 2005 | Registratio | [address] | [address] | | | | n | [place] Mailcode: [id number] | [address] [place], | | | | | [place], [place] | [place] [address] | | | | | [address] | [phone] | | | | | [phone] | | | +--------+ + + + [...]
--- OUTSIDE RECORDS SUMMARY | ~2019-07-26 | XMS | Encounter Summary ---
Demographics + + + | Address | BAD ADDRESS | | | [place] [address] | + + + | Home Phone | | + + + | Preferred Language | Unknown | + + + | Marital Status | | + + + | Yazidi Affiliation | 1077 | + + + | Race | Unknown | + + + | Ethnic Group | Unknown | + + + Author + + + | Author | [facility] | | | and [place] | + + + | Organization | [facility] | | | [...] | | | | | [place] [address] | | + + + + + | Najma Krishnamurthy | ECON | Unknown | | + + + + + | Hector Mack | ECON | [address] | | | | | [place] | | | | | [address] | | + + + + + | Najma Sanches | ECON | Unknown | | + + + + + Care Team Providers + +------+ + | Care Compliance Program Manager Name | Role | Phone | + +------+ + | Tuan Chan MD | PCP | | + +------+ + Encounter Details +--------+---------+ + + + | Date | Type | Department | Care Team | Description | +--------+---------+ + + + | 06/10/ | Surgery | [facility] | Leandra Chávez, | CV DIAGNOSTIC | | 2016 | | MED CTR CV INTRA OP | [address] | CARDIAC CATH | | | | [address] | [place] | | | | | [place] | [address] | | | | | [address] | | | | | | [phone] | | | +--------+---------+ + + + Social History + +-------+ [...] Unstable angina . She was transferred from [facility] with ongoing chest pain. Today at lunch time she developed chest discomfort. She was preparing lunch at the time. T he discomfort was sharp and stabbing. She was transferred from [facility] on NTG and heparin. The transfer took about 8 hours. The pain has not gone away. She was started on NTG drip a nd heparin. NTG was titrated up. She arrived here on 30 mcg/ min. She still had 4/10 pain . She had no acute ECG changes. She had some dyspnea and diaphoresis no radiation. 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 aka: Ren-RAJI LLOYD-LUIS Discontinued Medications ciprofloxacin 0.3% ophthalmic solution aka: [...] medication that helps the stomach empty better. 4610-[address] [employer] [place] [address], [place] [address]. All righ ts reserved. This information is [...] PROVIDER: | | | Tuan Chan MD RESPIRATORY THERAPY INSTRUCTOR: Dr. Leandra Chávez MD, | | | [facility], [facility] PRE-PROCEDURE DIAGNOSIS: Unstable Angina | | | [...] multiple views | | | using 6 Latvian JL5 and 5 F AL1 and an JESUS diagnostic catheters. | | | A 5 kazakh pigtail catheter was advanced into the left [...] | | RECOMMENDATIONS Continue medical Rx Leandra Chávez MD, [facility], | | | [facility] DATE/TIME: 06/12/2015 0:27 | | | 06/12/2015 0:27 Portions of this chart were created with [employer] | | | voice recognition software. Occasional [...] | Negative for MRSA by | | [facility] | | | | chromogenic agar method | | [facility] | | | [...] [address] | [place] | [phone] | | [facility] | | [address] | | | - LABORATORY | | [...] | | | | ERWIN MORALES MD ([id number]) | | | | | | on [...] 50 | 40 - 150 ug/dL | [facility] | | | | | | ST. [...] + | [facility] | [address] | [place] | [phone] | | [facility] | | [address] | | | - LABORATORY | | | | + + + + + Ferritin (06/11/2015 9:40 PM PDT) + +-------+ + + + | Component | Value | Ref Range | Performed | Pathologist | | | | | At | Signature | + +-------+ + + + | FERRITIN | 5 (L) | 11-<307 ng/mL | [facility] | | | | | | [facility] | | | | | | [...] + | [facility] | [address] | [place] | [phone] | | [facility] | | [address] | | | - LABORATORY | | [...] 7 | 7 - 18 mg/dL | [facility] | | | | | | [facility] | | | | | | MEDICAL | | | | | | CENTER - | | | | | | LABORATORY | | + + + + + + | Creatinine | 0.57 (L) | 0.60 - 1.30 | [facility] | | | | | mg/dL | [facility] | | | | | | MEDICAL | | | | | | CENTER - | | | | | | LABORATORY | | + + + + + + | eGFR if not | >60Comment: GLOMERULAR | >=60 | [facility] | | | | FILTRATION | mL/min/1.73m2 | [facility] | | | MARTINIQUAIS | RATE,ESTIMATED | | MEDICAL | | | | mL/min/1.78p8Qapv than | | CENTER - | | [...] | appended report. These | | [facility] | | | | results have [...] | appended report. These | | [facility] | | | | results have [...] Phosphatase | appended report. These | | [facility] | | | | results have [...] [address] | [place] | [phone] | | [facility] | | [address] | | | - LABORATORY | | | | + + + + + CBC no Differential (06/11/2015 9:40 PM PDT) + + + + + + | Component | Value | Ref Range | Performed | Pathologist | | | | | At | Signature | + + + + + + | WBC | 6.5 | 4.0 - 11.0 K/uL | [facility] | | | | | | [facility] | | | | | | MEDICAL | | | | | | CENTER - | | | | | | LABORATORY | | + + + + + + | RBC | 3.62 (L) | 3.70 - 5.20 | [facility] | | | | | M/uL | [facility] | | | | [...] | MPV | 9.3 | fL | [facility] | | | | | [...] [address] | [place] | [phone] | | [facility] | | [address] | | | - LABORATORY | | [...] | | | | | | [employer] | | | | | [...] + | [facility] | [address] | [place] | [phone] | | [facility] | | [address] | | | - LABORATORY | | | | + + + + + PTT (06/11/2015 9:40 PM PDT) + +--------+ + + + | Component | Value | Ref Range | Performed | Pathologist | | | | | At | Signature | + +--------+ + + + | aPTT | 44 (H) | 22 - 36 seconds | [facility] | | | | | [...] + + + + + | [facility] | [address] | [place] | [phone] | | [facility] | | [address] | | | - LABORATORY | | | | + + + + + documented in this encounter Visit Diagnoses Not on filedocumented in this encounter
--- OUTSIDE RECORDS SUMMARY | ~2019-07-26 | XMS | Encounter Summary ---
Demographics + + + | Address | BAD ADDRESS | | | [place] [address] | + + + | Home Phone | | + + + | Preferred Language | Unknown | + + + | Marital Status | | + + + | Sabianist Affiliation | 1077 | + + + | Race | Unknown | + + + | Ethnic Group | Unknown | + + + Author + + + | Author | [facility] | | | and [place] | + + + | Organization | [facility] | | | and [...] | | | | | [place] [address] | | + + + + + | Najma Krishnamurthy | ECON | Unknown | | + + + + + | Hector Mack | ECON | [address] | | | | | [place] | | | | | [address] | | + + + + + | Najma Sanches | ECON | Unknown | | + + + + + Care Team Providers + +------+ + | Care Fountain Attendant Name | Role | Phone | + +------+ + | Tuan Chan MD | PCP | | + +------+ + Reason for Visit + + + | Reason | Comments | + + + | Establish Care | Rash | + + + Encounter Details +--------+---------+ + + + | Date | Type | Department | Care Team | Description | +--------+---------+ + + + | 02/03/ | Office | [facility] | Landen Zimmer, | Rash and other | | 2018 | Visit | [facility] | OCCUPATIONAL HEALTH NURSE [address] | nonspecific skin | | | | CLINIC [address] | [place], | eruption (Primary | | | | [place], | [place] [address] | Dx) | | | | [place] [address] | [phone] | | | | | [phone] | | | +--------+---------+ + + + [...] + + documented as of this encounter Patient Instructions Patient Instructions Katherine Dixon, TANK WELDER - 02/03/2018 2:31 PM PSTThe patient was debt counselor ed regarding the above findings: Please return to clinic for suture removal and biopsy results A punch biopsy was performed: x3 Apply an ice pack not more then 20 minutes at a time The patient was given a prescription with instructions: Triamcinolone 0.1% ointment, apply to affected areas, TID, 1 stock size, 1 refill OTC Zyrtec every morning and Zantac every evening Written information on: [email or web address], [email or web address] The patient will follow up: 14-16 days Preventing Skin Cancer Relaxing in the sun may feel good, but it isn t good for your skin. In fact, being expose d to the sun s harmful rays is a major cause of skin cancer. This is a serious disease claudia t can be life-threatening. People of all ages and backgrounds are at risk. But in most cases , skin cancer can be prevented. Your role in prevention You can act today to help prevent skin cancer. Start by avoiding the sun s UV (ultraviole t) rays. And don t use tanning beds. These are no safer than the sun. Taking these steps c an help keep you from getting skin cancer. It can also help prevent wrinkles and otheragin g effects caused by the sun. Make sure your children also follow these safeguards. Now is th e time to start taking preventive steps against skin cancer. When you are outdoors Protect your skin when you go outdoors during the day. Take precautions whenever you go out to eat, run errands by car or on foot, or do any outdoor activity. There isn t just one e asy way to protect your skin. It s best to follow all of these steps: Wear tightly woven clothing that covers your skin. Put on a wide-brimmed hat to protect your face, ears, and scalp. Watch the clock. Try to avoid the sun between 10 a.m. and 4 p.m., when it is strongest. Head for the shade or create your own. Use an umbrella when sitting or strolling. Know that the sun s rays can reflect off sand, water, and snow. This can harm your ski n. Take extra care when you are near reflective surfaces. Keep in mind that even when the weather is hazy or cloudy, your skin can be exposed to s bryce UV rays. Shield your skin with sunscreen. Also apply sunscreen to your children s skin. Tips for using sunscreen To help prevent skin cancer, choose the right sunscreen and use it correctly. Try the follo wing tips: Choose a sunscreen that has a sun protection factor (SPF) of at least 30. Also choose a sunscreen labeled broad spectrum. This will shield you from both UVA and UVB (ultravio let A and B) rays. If one brand irritates your skin, try another, particularly ones without fragrance. Use a water-resistant sunscreen if you swim or sweat. Use at least an ounce of sunscreento cover exposed areas. This is enough to fill a sirena t glass. You might need to adjust the amount depending on your body size. Apply the sunscreen to dry skin about 15 minutes before going outdoors. This gives it ti me to be absorbed. Reapply sunscreen every2 hours. If you re active, do this more often. Cover any sun-exposed skin, from your face to your feet. Don t forget your ears and yo ur lips. Know that while sunscreen helps protect you, it isn t enough. Sunscreens extend the le ngth of time you can be outdoors before your skin begins to soha, but they don't give you total protection. Using sunscreen doesn't mean you can stay out in the sun indefinitely. Dam age to the skin cells is still occurring. You should also wear protective clothing. And try to stay out of the sun as much as you can, especially from 10 a.m. to 4 p.m. Date Last Reviewed: 03/31/[id number] [employer]. [address] [place] [address], [place] [address]. All [facility] ts reserved. This information is not intended as a substitute for professional medical care. Always follow your healthcare professional's instructions. documented in this encounter Progress Notes Landen Zimmer, OCCUPATIONAL HEALTH NURSE - 02/03/2018 1:15 PM PST Patient Name: Germaine Mack Age: 72 y.o. : 1945 Chief Complaint: Patient is a new patient, here for problematic skin exam. HPI: Germaine Mack is a 72 y.o. female who presents for a rash that has been present a t least 6 weeks, pt reports the rash is all over from the waist up. Pt sts the rash is slowl y getting worse. Pt states she has not used any medications on the rash but was seen in the ER today for the rash and they referred her here. Pt reports the rash is very itchy. Pt does not know what has made the rash better or worse. Pt denies any systemic symptoms. Past Medical History: Diagnosis Date Coronary artery disease cardiac stentsd "atleast 7", cant remember dates Stroke (HCC) 2014 some memory problems Personal History of Skin Cancer: no Family History of Skin Cancer: no Social History Social History Marital status: Spouse name: N/A Number of children: N/A Years of education: N/A Occupational History Not on file. Social History Main Topics Smoking status: Current Every Day Smoker Packs/day: 0.25 Years: 20.00 Last attempt to quit: 04/13/1985 Smokeless tobacco: Never Used Alcohol use No Drug use: No Sexual activity: Not on file Other Topics Concern Not on file Social History Narrative No narrative on file Patient Active Problem List Diagnosis Non-cardiac chest pain 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 Stented coronary artery H/O gastric bypass Chronic pain syndrome Anemia GERD (gastroesophageal reflux disease) Hypokalemia Current Outpatient Prescriptions on File Prior to Visit Medication Sig Dispense Refill clopidogrel (PLAVIX) 75 mg tablet Take 75 mg by mouth Daily. lisinopril (PRINIVIL, ZESTRIL) 20 mg tablet Take 20 mg by mouth Daily. metoprolol succinate (TOPROL-XL) 25 mg 24 hr tablet Take 25 mg by mouth Daily. morphine (MSIR) 30 MG tablet Take 30 mg by mouth 2 times daily. Take 1 tablet by mouth at 2 am and 1 tablet and 2 pm oxyCODONE-acetaminophen (PERCOCET) 10-325 mg per tablet Take 1 tablet by mouth 4 times daily as needed for Pain. potassium chloride (K-DUR,KLOR-CON) 10 MEQ ER tablet Take 10 mEq by mouth Daily. No current facility-administered medications on file prior to visit. Allergies No active allergies Intolerance No active intolerances/contraindications Review of Systems: Per patient today General Health: Negative marked weight gain and/or marked weight loss. Negative fatigue Negative fever and/or chills Psychiatric: negative Allergy/Immuno: Negative seasonal allergies Negative environmental allergies Physical Exam: Vitals: pt declined vitals Patient is oriented to person, place and time. Appears well developed and well nourished, and has a pleasant affect today. Integumentary: Problematic Skin exam was performed. Patient was offered and declined complete skin exam today. The following areas were examined: Problematic exam: Cutaneous exam was performed, including scalp, forehead, temples, eyeli ds, cheeks, nose, lips, chin, ears, post-auricular areas, neck, chest, abdomen, back, arms, dorsal hands and palms, and nail bed, nodes (oral and genitalia not examined per patient req uest). The patient was found to have: Moderate to severe excoriated lichenified maculopapular eruption to mid lower back, upper b ack, chest, anterior and posterior neck, post auricular areas, scalp 5mm punch biopsy for routine H&E done to right upper chest and left upper chest 5mm punch biopsy for DIF done to left upper back Palpation of the nodes in the cervical, pre-and postauricular, submandibular, submental, roman pra-and infraclavicular areas reveals no palpable lymphadenopathy. Assessment: Unknown skin eruption, R/O Contact dermatitis vs Lupus vs other Plan: The patient was counseled regarding the above findings: Please return to clinic for suture removal and biopsy results A punch biopsy was performed: x3 Right glute IM injection today of kenalog 40mg/cc, 1cc mixed with betamethasone 6mg/ml, 1cc Apply an ice pack not more then 20 minutes at a time The patient was given a prescription with instructions: Triamcinolone 0.1% ointment, apply to affected areas 4-5x per day, 1 stock size, 1 refill OTC Zyrtec every morning and Zantac every evening Written information on: [email or web address], [email or web address] The patient will follow up: 14-16 days A total of 40 minutes was spent fjxp-ls-nady with patient, greater than 50% of which was de dicated to education and care coordination regarding the diagnosis(es) listed above. Procedure: Punch Biopsy Procedure Note Pre-operative Diagnosis: Unknown skin eruption Post-operative Diagnosis:pending Locations::right chest(A), left upper chest(B), left upper back(C) Indications: Rule out contact dermatitis vs lupus vs other Anesthesia: Lidocaine 1% with epinephrine with added sodium bicarbonate, total 1.8 cc's. Procedure Details History of allergy to iodine: no Patient informed of the risks (including bleeding and infection) and benefits of the procedure and Written informed consent obtained. The right chest (A) lesion and surrounding area was given a sterile prep using alcohol and betadine and draped in the usual sterile fashion. The right chest was anesthetized with 1% L idocaine with epinephrine and added sodium bicarbonate, total 0.6cc. After adequate anesthes ia and vasoconstriction, the skin was then stretched perpendicular to the skin tension lines and the lesion removed using the 5mm punch. Hemostasis was obtained by pressure. The result ing ellipse was then closed with 1, 5-0 Nylon in a simple interrupted fashion. Antibiotic oi ntment and a sterile pressure dressing applied. Verbal and written wound care instructions w ere provided. The specimen is labeled and sent to pathology for evaluation. The procedure wa s well tolerated without complications. The left upper chest (B) lesion and surrounding area was given a sterile prep using alcohol and betadine and draped in the usual sterile fashion. The left upper chest was anesthetized with 1% Lidocaine with epinephrine and added sodium bicarbonate, total 0.6 cc. After adequa te anesthesia and vasoconstriction, the skin was then stretched perpendicular to the skin te nsion lines and the lesion removed using the 5mm punch. Hemostasis was obtained by pressure. The resulting ellipse was then closed with 1, 5-0 Nylon in a simple interrupted fashion. An tibiotic ointment and a sterile pressure dressing applied. Verbal and written wound care ins tructions were provided. The specimen is labeled and sent to pathology for evaluation. The p rocedure was well tolerated without complications. The left upper back (C) lesion and surrounding area was given a sterile prep using alcohol and betadine and draped in the usual sterile fashion. The left upper back was anesthetized w ith 1% Lidocaine with epinephrine and added sodium bicarbonate, total 0.6cc. After adequate anesthesia and vasoconstriction, the skin was then stretched perpendicular to the skin tensi on lines and the lesion removed using the 5mm punch. Hemostasis was obtained by pressure. Th e resulting ellipse was then closed with 1, 5-0 Nylon in a simple interrupted fashion. Antib iotic ointment and a sterile pressure dressing applied. Verbal and written wound care instru ctions were provided. The specimen is labeled and sent to pathology in Yosi solution for dir ect immunofluorescence (DIF). Tikoa in histology lab is aware. The procedure was well tolera arnaud without complications. EBL: minimal Findings: pending Condition: Stable Complications: none. Plan: 1. Instructed to keep the wound dry and covered for 24-48h and clean thereafter. 2. Warning signs of infection were reviewed. 3. Recommended that the patient use OTC acetaminophen as needed for pain. 4. Return for suture removal in 14-16 days Procedure: Intramuscular injection to right glute Physician: KHANH Turner DCNP Consent: Written Consent obtained. Timeout performed: 10/22/17 13:58 Description: kenalog 40mg/cc, 1cc mixed with betamethasone 6mg/ml, 1cc Complications: None Estimated blood loss: None Post Procedure Instructions: wound care instructions discussed with patient and he was inst ructed to keep area dry. Ok to cover with Band-Aid and antibiotic ointment. Signs and sympto ms of infection discussed. Patient agrees to contact office should they occur. All risk / benefits / alternatives discussed and pt verbalized understanding. Scribed for KHANH Turner DCNP by Katherine Dixon CMA I performed the above scribed services and the documentation accurately describes the serv ices I performed. Landen Zimmer, STILL RUNNER-BC, DCNP documented in this encounter Plan of Treatment + +------+--------+ + + | Name | Type | Priori | Associated Diagnoses | Order Schedule | | | | ty | | | + +------+--------+ + + | Misc Lab Referral | Lab | Routin | Rash and other | Expected: | | | | e | nonspecific skin | 03/20/2019, Expires: | | | | | eruption | 02/19/2020 | + +------+--------+ + + documented as of this encounter Procedures + +--------+ + + + | Procedure Name | Priori | Date/Time | Associated Diagnosis | Comments | | | ty | | | | + +--------+ + + + | SURGICAL PATHOLOGY | Routin | 02/03/2018 | Rash and other | Results for this | | EXAM | e | 12:00 AM | nonspecific skin | procedure are in the | | | | PST | eruption | results section. | + +--------+ + + + documented in this encounter Results Surgical Pathology Exam (02/03/2018 12:00 AM PST) + + | Specimen | + + | Tissue - Entire skin | | (body structure) | + + + + + | Narrative | Performed At | + + + | SPECIMEN(S): C LEFT UPPER BACK IN YOSI SPECIMEN(S): A RIGHT CHEST | [facility] | | SPECIMEN(S): B LEFT CHEST SPECIMEN SOURCE: A. RIGHT CHEST B. | [facility] | | LEFT CHEST C. LEFT UPPER BACK IN YOSI CLINICAL HISTORY: A, B. | | | Rule out contact dermatitis vs. lupus vs. other. C. Sent to [facility] | | | for Dif. R21 (rash and other nonspecific skin eruption) FINAL | | | PATHOLOGIC DIAGNOSIS: A. Skin, right chest, punch biopsy: - | | | Acantholytic dyskeratosis. (see comment) B. Skin, left | | | chest, punch biopsy: - Acantholytic dyskeratosis. C. Skin, | | | left upper back, punch biopsy: - No immunologic abnormality (see | | | Microscopic Examination). COMMENT: Histologic sections from both | | | specimens A and B show similar findings, although the findings are | | | more prominent in specimen A. The epidermis demonstrates changes of | | | acanthosis with acantholytic dyskeratosis and overlying | | | hyperparakeratosis. The underlying dermis contains a superficial | | | inflammatory infiltrate composed predominantly of lymphocytes with | | | foci of pigment incontinence. In the setting of a rash, the | | | differential diagnosis includes Estevan's disease, Ninfa-Ninfa | | | disease, Darier disease and eczematous processes with associated | | | acantholytic dyskeratosis. The negative findings on direct | | | immunofluorescence support this diagnosis. Correlation with clinical | | | findings and consideration for molecular testing is recommended. | | | This case has been reviewed and dictated by Spencer Edmond | | | Chey, Board-Certified Dermatopathologist. Part C | | | immunofluorescence study has been reviewed and dictated by Reina | | | Chey Vergara, Ph.D., Board Certified Dermatopathologist. | | | CLR:MZ:cml:C2NR MICROSCOPIC EXAMINATION: Histologic sections of | | | all submitted blocks are examined by light microscopy. These findings, | | | together with the gross examination, support the pathologic | | | diagnosis. C. No specific immunoreactants are detected with | | | antibodies against C3, IgG, IgA, IgM and fibrinogen. Type IV | | | collagen immunostain highlights epidermal basement membrane and | | | vascular basement membrane, as expected. Control tissue stains | | | appropriately. MZ:glc GROSS DESCRIPTION: A. Received in | | | formalin in a container labeled "Germaine Mack, site A, right | | | chest" is an unoriented skin punch biopsy, measuring 0.5 cm in | | | diameter x 0.4 cm in depth. The base of the specimen is inked black | | | and it is bisected and entirely submitted in one cassette (A1). | | | B. Received in formalin in a container labeled "Germaine Mack, | | | site B, left upper chest" is an unoriented skin punch biopsy, | | | measuring 0.6 cm in diameter x 0.4 cm in depth. The base of the | | | specimen is inked black and it is sectioned and entirely submitted in | | | one cassette (B1). C. The specimen is labeled and designated | | | "Jenni Mack, site C" and requisition further indicates "back, upper | | | left," is received in Yosi fixative and consists of a 0.5 cm, | | | pink-hung skin ellipse, excised to a depth of 0.5 cm. The specimen is | | | submitted for immunofluorescence studies NRT:cr:cml:las | | | PERFORMING LABORATORY: The technical component was performed by | | | [facility], [facility], [address] [place] [address] | | | [place], [place] [address] (Manager Nursing [facility]: Papi Gabriel MD; CLIA# | | | [id number]). Professional interpretation was performed by [facility] | | | [facility], [facility], [address] | | | [place] [address] (Manager Nursing Home: Spencer Whitley | | | Chey Edmond; CLIA#: [id number]). Professional interpretation | | | of the direct immunofluorescence was performed by [facility], | | | [address] [place] [address] (Manager Nursing Home: | | | Eitan Baig D.O.; CLIA#: [id number]). Diagnostician: | | | Spencer Edmond MD Pathologist Electronically Signed | | | 02/09/2018 | | + + + + +---------+ + + | Performing | Address | City/State/Zipcode | Phone Number | | Organization | | | | + +---------+ + + | [facility] | | | | | [place] | | | | + +---------+ + + documented in this encounter Visit Diagnoses + + | Diagnosis | + + | Rash and other nonspecific skin eruption - Primary | + + documented in this encounter Administered Medications + +--------+ +------+------+ + | Medication Order | MAR | Action | Dose | Rate | Site | | | Action | Date | | | | + +--------+ +------+------+ + | betamethasone (CELESTONE | Given | 02/04/20 | 6 mg | | Glut-Rig | | SOLUSPAN) injection 6 mg 6 mg, | | 18 1:45 | | | ht | | Intramuscular, ONCE, 02/04/18 | | PM PST | | | | | at 0945, For 1 dose, Shake well. | | | | | | | Not for IV use., | | | | | | + +--------+ +------+------+ + +---+---+ | | | +---+---+ + +-------+ +-------+---+ + | triamcinolone acetonide | Given | 02/04/20 | 40 mg | | Glut-Rig | | (KENALOG-40) 40 mg/mL injection | | 18 1:45 | | | ht | | 40 mg 40 mg, Intramuscular, | | PM PST | | | | | ONCE, 02/04/18 at 0945, For 1 | | | | | | | dose, Shake well. Not for IV | | | | | | | use., | | | | | | + +-------+ +-------+---+ + +---+---+ | | | +---+---+ documented in this encounter
--- OUTSIDE RECORDS SUMMARY | ~2019-07-26 | XMS | Encounter Summary ---
Demographics + + + | Address | [address] | | | [place] [address] | + + + | Home Phone [...] [place] | | | | | [address] | | + + + + + Care Team Providers + +------+ + | Care Printing Roller Polisher Name | Role | Phone | + +------+ + | Tuan Chan MD | PCP | | + +------+ + Reason for Visit + + + | Reason | Comments | + + + | Prescription | | | Clarification | | + + + Encounter Details +--------+ + + + + | Date | Type | Department | Care Team | Description | +--------+ + + + + | 03/14/ | Telephone | Urology Fertility | Renaot Chow MD | Prescription | | 2010 | | [address] | | Clarification | | | | Mailcode: [id number] | | | | | | [facility] | | | | | | and Healing, | | | | | | [address] | | | | | | Floor [place], [place] | | | | | | [address] | | | | | | [phone] | | | +--------+ + + + [...]
--- OUTSIDE RECORDS SUMMARY | ~2019-07-26 | XMS | Encounter Summary ---
Demographics + + + | Address | [address] | | | [place] [address] | + + + | Home Phone | | + + + | Preferred Language | Unknown | + + + | Marital Status | | + + + | Caodaism Affiliation | PRO | + + + [...] [place] | | | | | [address] | | + + + + + Care Team Providers + +------+ + | Care Parliamentary Counsel Name | Role | Phone | + [...]
--- OUTSIDE RECORDS SUMMARY | ~2019-07-26 | XMS | Encounter Summary ---
Demographics + + + | Address | [address] | | | [place] [address] | + + + | Home Phone | | + + + | Preferred Language | Unknown | + + + | Marital Status | | + + + | Mosque Affiliation | 1077 | + + + | Race | Unknown | + + + | Ethnic Group | Unknown | + + + Author + + + | Author | [facility] | | | and [place] | + + + | Organization | [facility] | | | and [place] | + + + | Address | Unknown | + + + | Phone | Unavailable | + + + Support + + + + + | Name | Relationship | Address | Phone | + + + + + | Hector Mack | ECON | [address] | | | | | [place] [address] | | + + + + + | Najma Krishnamurthy | ECON | Unknown | | + + + + + | Hector Mack | ECON | [address] | | | | | [place] | | | | | [address] | | + + + + + | Najma Sanches | ECON | Unknown | | + + + + + Care Team Providers + +------+ + | Care Esol Teacher Assistant Name | Role | Phone | + +------+ + PCP | Unavailable | + +------+ + Encounter Details +--------+ + + + + | Date | Type | Department | Care Team | Description | +--------+ + + + + | 07/25/ | Hospital | [facility] | Tuan Chan, | LUMBOSACRAL NEURITIS | | 2004 | Encounter | [address] | MD 2010 | [address] | | | | [address] | [facility], [place] | | | | | [place], [place] | [address] | | | | | [address] | [phone] | | | | | [phone] | | | +--------+ + + + [...] + | Diagnosis | + + | Thoracic or lumbosacral neuritis or radiculitis, unspecified | + + documented in this encounter"
--- OUTSIDE RECORDS SUMMARY | ~2019-07-26 | XMS | Encounter Summary ---
Demographics + + + | Address | [address] | | | [place] [address] | + + + | Home Phone [...] [place] | | | | | [address] | | + + + + + Care Team Providers + +------+ + | Care Production Officer Name | Role | Phone | [...] | | | | | abdominal | [facility] [place] | Mailcode: | | | | | cavity | [address] | [facility] | | | | | without | | for Health | | | | | mention of | | and Healing, | | | | | obstruction | | Building 1, | | | | | or gangrene | | 5th Floor | | | | | | | [place], [place] | | | | | Panniculitis | | [address] | | | | | Procedures | | Phone: | | | | | REQUEST TO | | [phone] | | | | | SURGERY | | | | | | | TESTING COORDINATOR | | | +--------+--------+ + + + [...] | site of | [address] [facility] | | | | | abdominal | [place], [place] | Hospital, | | | | | cavity | [address] | 10th Floor | | | | | without | | [place], [place] | | | | | mention of | | [address] | | | | | obstruction | | Phone: | | | | | or gangrene | | [phone] | | | | | Procedures | | Fax: | | | | | CT ABDOMEN | | [phone] | | | | | WWO CONTRAST | | | | | | | LTD | [...] Panniculitis | | | | Surgery at [facility] [address] | | | | | | [facility] | | | | | | for Health and | | | | | | Healing Building 1, | | | | | | 5th Floor [place], | | | | | | [place] [address] | | | | | | [phone] | | | +--------+---------+ + + + [...] | | + +---------+ + + | [facility] DEPARTMENT OF | | | | [...]
--- OUTSIDE RECORDS SUMMARY | ~2019-07-26 | XMS | Encounter Summary ---
Demographics + + + | Address | BAD ADDRESS | | | [place] [address] | + + + | Home Phone | | + + + | Preferred Language | Unknown | + + + | Marital Status | | + + + | Taoist Affiliation | 1077 | + + + | Race | Unknown | + + + | Ethnic Group | Unknown | + + + Author + + + | Author | [facility] | | | and Byronana | + + + | Organization | [facility] | | | and [...] | | | | | [place] [address] | | + + + + + | Najma Krishnamurthy | ECON | Unknown | | + + + + + | Hector Mack | ECON | [address] | | | | | [place] | | | | | [address] | | + + + + + [...] | Comments | + + + | ED Follow-up | | + + + Encounter Details +--------+ + + + + | Date | Type | Department | Care Team | Description | +--------+ + + + + | 01/08/ | Telephone | [facility] | Liseth Cuevas RN | ED Follow-up | | 2017 | | HOSPITAL EMERGENCY | | | | | | [address] | | | | | | [place], [place] | | | | | | [address] | | | | | | [phone] | | | +--------+ + + + [...]
--- OUTSIDE RECORDS SUMMARY | ~2019-07-26 | XMS | Encounter Summary ---
Demographics + + + | Address | BAD ADDRESS | | | [place] [address] | + + + | Home Phone | | + + + | Preferred Language | Unknown | + + + | Marital Status | | + + + | Presybeterian Affiliation | 1077 | + + + | Race | Unknown | + + + | Ethnic Group | Unknown | + + + Author + + + | Author | [facility] | | | and Byron[place] | + + + | Organization | [facility] | | | [...] | | | | | [place] [address] | | + + + + + | Najma Krishnamurthy | ECON | Unknown | | + + + + + | Hector Mack | ECON | [address] | | | | | [place] | | | | | [address] | | + + + + + | Najma Sanches | ECON | Unknown | | + + + + + Care Team Providers + +------+ + | Care System Support Administrator Name | Role | Phone | + +------+ + | Tuan Chan MD | PCP | | + +------+ + Encounter Details +--------+ + + + + | Date | Type | Department | Care Team | Description | +--------+ + + + + | 06/10/ | Hospital | [facility] | Leandra Chávez, | Unstable angina | | 2016 - | Encounter | MED CTR ICU [address] | [address] | ([facility]) (Primary Dx); | | | | [place], | [place], [place] | Non-cardiac chest | | 06/11/ | | [place] [address] | [address] | pain | | 2015 | | [phone] | | | +--------+ + + + [...] Unstable angina . She was transferred from [facility] with ongoing chest pain. Today at lunch time she developed chest discomfort. She was preparing lunch at the time. T preethi discomfort was sharp and stabbing. She was transferred from [facility] on NTG and heparin. The transfer took about 8 hours. The pain has not gone away. She was started on NTG drip a nd heparin. NTG was titrated up. She arrived here on 30 mcg/ min. She still had 4/10 pain . She had no acute ECG changes. She had some dyspnea and diaphoresis no radiation. She was taken to the laborer general due to ongoing chest pain: PROCEDURES PERFORMED: [...] was performed in multiple views using 6 Citizen Of [place] JL5 and 5 F AL1 and an [...] Take 10 mEq by mouth Daily. aka: KEIRY STEWART Discontinued Medications ciprofloxacin 0.3% ophthalmic solution aka: [...] medication that helps the stomach empty better. [id number] [employer]. [address] [place], [place] [address]. All righ ts reserved. This information is [...] PROVIDER: | | | Tuan Chan MD [place] [facility] SUPERINTENDENT: Dr. Leandra Chávez MD, | | | [facility], [facility] PRE-PROCEDURE DIAGNOSIS: Unstable Angina | | | [...] multiple views | | | using 6 Citizen Of [place] JL5 and 5 F AL1 and an JESUS diagnostic catheters. | | | A 5 korean pigtail catheter was advanced into the left [...] RECOMMENDATIONS Continue medical Rx Leandra Chávez MD, [facility], | | | [facility] DATE/TIME: 06/12/2015 0:27 | | | 06/12/2015 0:27 Portions of this chart were created with [employer] | | | voice recognition software. Occasional [...] + | [facility] | [address] | [place], [place] | [phone] | | [facility] | | [address] | | | - LABORATORY | | [...] | | | | ERWIN MORALES MD ([id number]) | | | | | | on [...] + | [facility] | [address] | [place], [place] | [phone] | | [facility] | | [address] | | | - LABORATORY | | | | + + + + + Ferritin (06/11/2015 9:40 PM PDT) + +-------+ + + + | Component | Value | Ref Range | Performed | Pathologist | | | | | At | Signature | + +-------+ + + + | FERRITIN | 5 (L) | 11-<307 ng/mL | [facility] | | | | | | [facility] | | | | | | [...] ST. | [address] | [place], [place] | [phone] | | [facility] | | [address] | | | - LABORATORY | | [...] | | | | | mg/dL | [facility] | | | | | | MEDICAL | | | | | | CENTER - | | | | | | LABORATORY | | + + + + + + | eGFR if not | >60Comment: GLOMERULAR | >=60 | [facility] | | | | FILTRATION | mL/min/1.73m2 | [facility] | | | ANGUILLAN | RATE,ESTIMATED | | MEDICAL | | | | mL/min/1.59t4Vnqn than | | CENTER - | | [...] | | | | | mg/dL | [facility] | | | | | [...] ST. | [address] | [place], [place] | [phone] | | [facility] | | [address] | | | - LABORATORY | | [...] SERAE | | | | | | [facility] [...] | | | | g/dL | [facility] | | | | [...] + + | [facility] | [address] | [place] | [phone] | | [facility] | | [address] | | | - LABORATORY | | [...] | | | | | | [employer] [place] [employer] | | | | | [...] | + + + + + | [facility] | [address] | [place] | [phone] | | [facility] | | [address] | | | - LABORATORY | | | | + + + + + PTT (06/11/2015 9:40 PM PDT) + +--------+ + + + | Component | Value | Ref Range | Performed | Pathologist | | | | | At | Signature | + +--------+ + + + | aPTT | 44 (H) | 22 - 36 seconds | [facility] | | | | | [...] | + + + + + | [facility] | [address] | [place], [place] | [phone] | | [facility] | | [address] | | | - LABORATORY | | [...] | | | | at 0021, Florentin petty, | | | | | | | Post-op/Phase II | | | | | | + +--------+ +--------+------+------+ +---+---+ | | | +---+---+ + +-------+ +-------+---+---+ | aspirin chewable tablet 81 mg | Given | 06/12/19 | 81 mg | | | | 81 mg, Oral, DAILY, First dose on | | 16 8:19 | | | | | 06/12/15 at 0900, Do not give | | [...] | | | | First dose on 06/12/15 at | | AM PDT | | [...] | 6 mLs | | | | Infiltration, PRN, Starting Sun | | 16 11:06 | | [...] | | | | First dose on 06/12/15 at | | AM PDT | | [...] | | | | | dose on Fri06/12/15 at 0915 | | AM PDT | [...]
--- OUTSIDE RECORDS SUMMARY | ~2019-07-26 | XMS | Encounter Summary ---
Demographics + + + | Address | [address] | | | [place] [address] | + + + | Home Phone | | + + + | Preferred Language | Unknown | + + + | Marital Status | | + + + | Moravian Affiliation | PRO | + + + | Race | White | + + + | Ethnic Group | Not or | + + + Author + + + | Author | [facility] | + + + | Organization | [facility] | + + + | Address | Unknown | + + + | Phone | Unavailable | + + + Support + + + + + | Name | Relationship | Address | Phone | + + + + + | Hector Mack | ECON | [address] | | | | | [place] | | | | | [address] | | + + + + + Care Team Providers + +------+ + | Care Wreath And Garland Maker Hand Name | Role | Phone | + +------+ + | Tuan Chan MD | PCP | | + +------+ + Encounter Details +--------+ + + + + | Date | Type | Department | Care Team | Description | +--------+ + + + + | 02/13/ | Router Setter | Urology Fertility | Renato Chow MD | Kidney stones | | 2010 | | [address] | | (Primary Dx) | | | | Mailcode: CH10U | | | | | | [facility] | | | | | | and Healing, | | | | | | Building [address], [address] | | | | | | Floor [place], [place] | | | | | | [address] | | | | | | [phone] | | | +--------+ + + + [...] | Diagnosis | + + | Kidney stones - Primary Calculus of kidney | + + documented in this encounter"
--- OUTSIDE RECORDS SUMMARY | ~2019-07-26 | XMS | Encounter Summary ---
Demographics + + + | Address | BAD ADDRESS | | | [place] [address] | + + + | Home Phone | | + + + | Preferred Language | Unknown | + + + | Marital Status | | + + + | Confucianist Affiliation | 1077 | + + + | Race | Unknown | + + + | Ethnic Group | Unknown | + + + Author + + + | Author | [facility] | | | and [place] | + + + | Organization | [facility] | | | [...] [place] | | | | | [address] | | + + + + + | Najma Sanches | ECON | Unknown | | + + + + + Care Team Providers + +------+ + | Care Transport Tech Name | Role | Phone | + +------+ + PCP | Unavailable | + +------+ + Encounter Details +--------+ + + + + | Date | Type | Department | Care Team | Description | +--------+ + + + + | 03/01/ | Hospital | [facility] | | | | 1995 - | Encounter | MED CTR GENERIC OP | | | | | | CONV DEPT [address] | | | | 08/02/ | | [place], | | | | 1997 | | [place] [address] | | | | | | [phone] | | | +--------+ + + + [...]
--- OUTSIDE RECORDS SUMMARY | ~2019-07-26 | XMS | Encounter Summary ---
Demographics + + + | Address | BAD ADDRESS | | | [place] [address] | + + + | Home Phone [...] | [facility] | | | and [place] | + + + | Organization | [facility] | | | and [...] | | | | | [place] [address] | | + + + + + | Najma Krishnamurthy | ECON | Unknown | | + + + + + | Hector Mack | ECON | [address] | | | | | [place] | | | | | [address] | | + + + + + | Najma Sanches | ECON | Unknown | | + + + + + Care Team Providers + +------+ + | Care Analysis Manager Name | Role | Phone | + +------+ + PCP | Unavailable | + +------+ + Encounter Details +--------+ + + + + | Date | Type | Department | Care Team | Description | +--------+ + + + + | 01/06/ | Hospital | [facility] | | | | 1991 | Encounter | MED CTR XRAY [address] | | | | | | [address] | | | | | | [place] [address] | | | | | | [phone] | | | +--------+ + + + [...]
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
--- OUTSIDE RECORDS SUMMARY | ~2019-07-26 | XMS | Encounter Summary ---
Demographics + + + | Address | [address] | | | [place] [address] | + + + | Home Phone | | + + + | Preferred Language | Unknown | + + + | Marital Status | | + + + | Baptism Affiliation | PRO | + + + | Race | White | + + + | Ethnic Group | Not or | + + + Author + + + | Author | [facility] | + + + | Organization | [facility] | + + + | Address | Unknown | + + + | Phone | Unavailable | + + + Support + + + + + | Name | Relationship | Address | Phone | + + + + + | Hector Mack | ECON | [address] | | | | | [place] | | | | | [address] | | + + + + + Care Team Providers + +------+ + | Care Caul Fat Puller Name | Role | Phone | + [...] | Registratio | [address] | [address] | | | | n | [place] Mailcode: [id number] | [place], | | | | | [place], [place] | [place] [address] | | | | | [address] | [phone] | | | | | [phone] | | | +--------+ + + + [...]
--- OUTSIDE RECORDS SUMMARY | ~2019-07-26 | XMS | Encounter Summary ---
Demographics + + + | Address | [address] | | | [place] [address] | + + + | Home Phone [...] [place] | | | | | [address] | | + + + + + Care Team Providers + +------+ + | Care Service Center Specialist Name | Role | Phone | [...] + + | 01/14/ | Office | Preoperative | 1, [facility] [address] | Panniculitis; CAD | | 2007 | Visit | Medicine Clinic at | [facility] | (Coronary Artery | | | | [facility] 4th Floor [address] | [place] [address] | Disease); DM Circ | | | | [address] | | Dis Type II, | | | | Mailcode: CH4S | | Uncontrolled (HCC); | | | | [facility] | | Other Specified | | | | and Healing, | | Pre-Operative | | | | Building 1,4th Floor | | Examination | | | | [place], [place] | | | | | | [address] | | | | | | [phone] | | | +--------+---------+ + + + [...] + + + | Blood Pressure | 159/85 | 01/15/2008 10:40 AM | | | | | PDT | | + + + + + | Pulse | 64 | 01/15/2008 10:40 AM | | | | | PDT | | + + + + + | Temperature | 36.7 C (98.1 F) | 01/15/2008 10:40 AM | | | | | PDT | | + + + + + | Respiratory Rate | 14 | 01/15/2008 10:40 AM | | | | | PDT | | + + + + + | Oxygen Saturation | 100% | 01/15/2008 10:40 AM | | | | | PDT | | + + + + + | Inhaled Oxygen | - | - | | | Concentration | | | | + + + + + | Weight | 88.9 kg (196 lb) | 01/15/2008 10:40 AM | | | | | PDT | | + + + + + | Height | 162.6 cm (5' 4") | 01/15/2008 10:40 AM | | | | | PDT | | + + + + + | Body Mass Index | 33.64 | 01/15/2008 10:40 AM | | | | | PDT | | + + + + + documented in this encounter Progress Carol Ramirez - 01/15/2008 11:14 AM PDTSee Scanned H&P. documented in this e ncounter Plan of Treatment + + +--------+ + + | Name | Type | Priori | Associated Diagnoses | Order Schedule | | | | ty | | | + + +--------+ + + | HI COLLECTION VENOUS | Procedures | Routin | Panniculitis | Ordered: 01/15/2008 | | BLOOD,VENIPUNCTURE | | e | | | + + +--------+ + + documented as of this encounter Procedures + +--------+ + + + | Procedure Name | Priori | Date/Time | Associated Diagnosis | Comments | | | ty | | | | + +--------+ + + + | TYPE AND SCREEN | Routin | 01/15/2008 | | Results for this | | | e | 2:18 PM | | procedure are in the | | | | PDT | | results section. | + +--------+ + + + | UA, DIPSTICK ONLY | Routin | 01/15/2008 | DM Circ Dis Type | Results for this | | | e | 10:51 AM | II, Uncontrolled | procedure are in the | | | | PDT | (HCC) | results section. | + +--------+ + + + | INR | Routin | 01/15/2008 | CAD (Coronary | Results for this | | | e | 10:50 AM | Artery Disease) | procedure are in the | | | | PDT | | results section. | + +--------+ + + + | COMPLETE METABOLIC | Routin | 01/15/2008 | Panniculitis | Results for this | | SET | e | 10:50 AM | | procedure are in the | | (NA,K,CL,CO2,BUN,CRE | | PDT | | results section. | | AT,GLUC,CA,AST,ALT,B | | | | | | NARGIS TOTAL,ALK | | | | | | PHOS,ALB,PROT TOTAL) | | | | | + +--------+ + + + | CBC ONLY | Routin | 01/15/2008 | Panniculitis | Results for this | | | e | 10:50 AM | | procedure are in the | | | | PDT | | results section. | + +--------+ + + + | APTT (ACT. PART. | Routin | 01/15/2008 | CAD (Coronary | Results for this | | THROMBO TIME) | e | 10:50 AM | Artery Disease) | procedure are in the | | | | PDT | | results section. | + +--------+ + + + | 12 LEAD ECG | Routin | 01/15/2008 | Panniculitis | Results for this | | | e | 10:46 AM | Other specified | procedure are in the | | | | PDT | pre-operative | results section. | | | | | examination | | + +--------+ + + + documented in this encounter Results TYPE AND SCREEN (01/15/2008 2:18 PM PDT) + + + + + [...] | Ordered by an unspecified provider. | [facility] | | | DEPARTMENT OF | | | PATHOLOGY | + + + + + + + + | Performing | Address | City/State/Zipcode | Phone Number | | Organization | | | | + + + + + | [facility] | [address] | [place] [address] | | | PATHOLOGY | [address] | | | + + + + + | [facility] | [address] | [place] [address] | | | PATHOLOGY | [address] | | | + + + + + RYAN WHITAKER ONLY (01/15/2008 10:51 [...] | + + + + + | [facility] | [address] | [place] [address] | | | PATHOLOGY | [address] | | | + + + + + | [facility] | [address] | [place] [address] | | | PATHOLOGY | [address] [...] | + + + + + | [facility] | [address] | [place] [address] | | | PATHOLOGY | [address] | | | + + + + + | [facility] | [address] [place] [address] [address] | [place] [address] | | | PATHOLOGY | [address] [...] | + + + + + | [facility] | [address] | [place] [address] | | | PATHOLOGY | [address] | | | + + + + + | [facility] | [address] | [place] [address] | | | PATHOLOGY | [address] [...] Performed At | + + + | [id number] Estimated GFR > 60 mL/min/1.73 sq m if non- | [facility] | | [place] [id number] Estimated GFR > 60 mL/min/1.73 sq m if | DEPARTMENT OF | | [place] GFR is estimated using the MDRD equation [...] | + + + + + | [facility] | [address] | [place] [address] | | | PATHOLOGY | [address] | | | + + + + + | [facility] | [address] | [place] [address] | | | PATHOLOGY | [address] [...] | + + + + + | [facility] | [address] | [place] [address] | | | PATHOLOGY | [address] | | | + + + + + | [facility] | [address] | [facility] [place] [address] | | | PATHOLOGY | [address] | | | + + + + + 12 LEAD ECG (01/15/2008 10:46 AM PDT) + + + + + + | Component | Value | Ref Range | Performed | Pathologist | | | | | At | Signature | + + + + + + | VENTRICULAR | 50 | BPM | [facility] | | | RATE | | | OF | | | | | | CARDIOLOGY | | + + + + + + | ATRIAL RATE | 50 | BPM | [facility] | | | | | | OF | | | | | | CARDIOLOGY | | + + + + + + | P-R | 136 | ms | [facility] | | | INTERVAL | | | OF | | | | | | CARDIOLOGY | | + + + + + + | QRS | 84 | ms | [facility] | | | DURATION | | | OF | | | | | | CARDIOLOGY | | + + + + + + | QT | 502 | ms | [facility] | | | | | | OF | | | | | | CARDIOLOGY | | + + + + + + | QTC | 458 | ms | [facility] | | | | | | OF | | | | | | CARDIOLOGY | | + + + + + + | P AXIS | 36 | degrees | [facility] | | | | | | OF | | | | | | CARDIOLOGY | | + + + + + + | R AXIS | 0 | degrees | [facility] | | | | | | OF | | | | | | CARDIOLOGY | | + + + + + + | T AXIS | 75 | degrees | [facility] | | | | | | OF | | | | | | CARDIOLOGY | | + + + + + + | EKG | Sinus | | [facility] | | | DIAGNOSIS | bradycardiaNonspecific T | | OF | | | | wave | | CARDIOLOGY | | | | abnormalityAbnormal | | | | | | ECG"I have personally | | | | | | interpreted this report, | | | | | | either alone or with a | | | | | | trainee."Confirmed by | | | | | | STAN JOHNSON ([id number]) on | | | | | | 15-Jan-2008 18:06:24 | | | | + + + [...] + + + | Please click | [facility] | | on view image for the detailed interpretation from [employer] results. | CARDIOLOGY | | | | + + + + + + + + | Performing | Address | City/State/Zipcode | Phone Number | | Organization | | | | + + + + + | [facility] | [address] | [place], [place] | | | CARDIOLOGY | [address] | [address] | | + + + + + | [facility] | [address] | [place], [place] | | | CARDIOLOGY | [address] | [address] | | + + + + + documented in this encounter Visit Diagnoses + + | Diagnosis | + + | Panniculitis Panniculitis, unspecified site | + + | CAD (coronary artery disease) Coronary atherosclerosis of unspecified type of vessel, | | [place] or graft | + + | Type II or unspecified type diabetes mellitus with peripheral circulatory disorders, | | uncontrolled(250.72) Type II or unspecified type diabetes mellitus with peripheral | | circulatory disorders, uncontrolled | + + | Other specified pre-operative examination | + + documented in this encounter
--- OUTSIDE RECORDS SUMMARY | ~2019-07-26 | XMS | Encounter Summary ---
Demographics + + + | Address | BAD ADDRESS | | | [place] [address] | + + + | Home Phone [...] | Author | [facility] | | | and [place] | + + + | Organization | [facility] | | | and [place] | + + + | Address | Unknown | + + + | Phone | Unavailable | + + + Support + + + + + | Name | Relationship | Address | Phone | + + + + + | Hector Mack | ECON | [address] | | | | | [place] [address] | | + + + + + | Najma Krishnamurthy | ECON | Unknown | | + + + + + | Hector Mack | ECON | [address] | | | | | [place] | | | | | [address] | | + + + + + | Najma Sanches | ECON | Unknown | | + + + + + Care Team Providers + +------+ + | Care Seed Cone Picker Name | Role | Phone | + +------+ + PCP | Unavailable | + +------+ + Encounter Details +--------+ + + + + | Date | Type | Department | Care Team | Description | +--------+ + + + + | 11/10/ | Hospital | [facility] | Oralia Quinonez | | | 2011 | Encounter | HOSPITAL GROUND | MD [address] | | | | | [address] [place] | [address] | [place] [address] | | | | | [place], [place] | [phone] | | | | | [address] | | | | | | [phone] | | | +--------+ + + + [...]
--- OUTSIDE RECORDS SUMMARY | ~2019-07-26 | XMS | Encounter Summary ---
Demographics + + + | Address | [address] | | | [place] [address] | + + + | Home Phone [...] Providers + +------+ + | Care Medical Imaging Tech Name | Role | Phone | [...] | | | | | | [address] [place], [place] | | | | | | [address] | | | | | | [phone] | | | +--------+ + + + [...]
--- OUTSIDE RECORDS SUMMARY | ~2019-07-26 | XMS | Encounter Summary ---
Demographics + + + | Address | [address] | | | [place] [address] | + + + | Home Phone [...] + + | Author | [facility] | + + + | Organization | [facility] | + + + | Address | Unknown | + + + | Phone | Unavailable | + + + Support + + + + + | Name | Relationship | Address | Phone | + + + + + | Hector Mack | ECON | [address] | | | | | [place] | | | | | [address] | | + + + + + Care Team Providers + +------+ + | Care Road Grader Operator Name | Role | Phone | [...] | | | | | Procedures | [address] | [place] | | | | | CONSULT TO | [facility] | [facility] | | | | | [place] | [place], [place] | CHILDREN | | | | | | [address] | [address] [facility] [address] | | | | | | Phone: | [place]NE | | | | | | [phone] | [place], | | | | | | Fax: | [place] [address] | | | | | | [phone] | Phone: | | | | | | | [phone] | | | | | | | Fax: | | | | | | | [phone] | +--------+--------+ + + + + Reason [...] 2007 | Visit | Reconstructive | MD [address] | Dx) | | | | Surgery at [facility] [address] | [place], [place] | | | | | [address] [place] | [address] | | | | | for Health and | [phone] | | | | | [place] [address], | | | | | | 5th Floor [place], | | | | | | [place] [address] | | | | | | [phone] | | | +--------+---------+ + + + [...] Progress Gia Carrillo - 08/20/2007 8:49 AM PDTI saw Germaine along with Dr. Vasquez. She has seen a hotel front desk agent without any change in her rash. She [...] known rash that was seen by a hotel front desk agent, per patient. There was no specific treatab [...]
--- OUTSIDE RECORDS SUMMARY | ~2019-07-26 | XMS | Encounter Summary ---
Demographics + + + | Address | [address] | | | [place] [address] | + + + | Home Phone [...] [place] | | | | | [address] | | + + + + + Care Team Providers + +------+ + | Care Real Estate Agency Licensee Name | Role | Phone | + [...] | 2006 | Visit | Center [address] | | | | | | [place] Mailcode: CH4S | | | | | | [facility] | | | | | | and [place], | | | | | | Building [address], [address]th | | | | | | Floor [place], [place] | | | | | | [address] | | | | | | [phone] | | | +--------+---------+ + + + [...]
--- OUTSIDE RECORDS SUMMARY | ~2019-07-26 | XMS | Encounter Summary ---
Demographics + + + | Address | BAD ADDRESS | | | [place] [address] | + + + | Home Phone | | + + + | Preferred Language | Unknown | + + + | Marital Status | | + + + | Sabianism Affiliation | 1077 | + + + | Race | Unknown | + + + | Ethnic Group | Unknown | + + + Author + + + | Author | [facility] | | | and [place] | + + + | Organization | [facility] | | | and [...] | | | | | [place] [address] | | + + + + + | Najma Krishnamurthy | ECON | Unknown | | + + + + + | Hector Mack | ECON | [address] | | | | | [place] | | | | | [address] | | + + + + + | Najma Sanches | ECON | Unknown | | + + + + + Care Team Providers + +------+ + | Care Microsoft Exchange Architect Name | Role | Phone | + +------+ + PCP | Unavailable | + +------+ + Encounter Details +--------+ + + + + | Date | Type | Department | Care Team | Description | +--------+ + + + + | 07/18/ | Hospital | [facility] | | | | 1996 - | Encounter | MED CTR MED ONC | | | | | | [address] | | | | 07/23/ | | [place] [address] | | | | 1997 | | [phone] | | | +--------+ + + + [...]
--- OUTSIDE RECORDS SUMMARY | ~2019-07-26 | XMS | Encounter Summary ---
Demographics + + + | Address | [address] | | | [place] [address] | + + + | Home Phone [...] [place] | | | | | [address] | | + + + + + Care Team Providers + +------+ + | Care Slurry Control Tender Name | Role | Phone | + +------+ + | Tuan Chan MD | PCP | | + +------+ + Encounter Details +--------+ + + + + | Date | Type | Department | Care Team | Description | +--------+ + + + + | 06/17/ | Procedure - | | Bryan Pedraza MD | Operative Report | | 2007 | | | [address] | | | | Transcribed | | [place], | | | | | | [place] [address] | | | | | | [phone] | | | | | | | [...] + + | OPERATION RECORD | | 06/18/2007 | | Results for this | | | | 12:00 AM | | procedure are in the | | | | PDT | | results section. | + +--------+ + + + documented in this encounter Results OPERATION RECORD (06/18/2007 12:00 AM PDT) + + | Procedure Note | + + | Bryan Pedraza MD - 06/18/2007 12:00 AM PDT [id number] | | [id number] ARETHA RAE [id number] | | [id number] Date: 06/18/2007 Attending Surgeon: Noe Hdez M.D. | | Mirror Painter(s): Bryan Pedraza M.D. Preoperative Diagnosis(es): Right | | urolithiasis. Postoperative Diagnosis(es): Right urolithiasis. Procedures | | Performed: 1. Rigid cystourethroscopy. 2. Right retrograde pyelogram. 3. Right flexible | | nephroureteroscopy with holmium laser lithotripsy. 4. Right ureteral stent placement | | (6-Taiwanese x 24 cm). 5. Fluoroscopy with interpretation. Anesthesia: General with | | LMA. Complications: None. Specimens: None. Estimated Blood Loss: Minimal. | | Urine Output: Not measured. Fluids: Crystalloid 1400 mL. Indications: | | Aretha is a 61-year-old woman with multiple medical comorbidities who on imaging | | was found to have a 1.5 cm stone in the right renal pelvis. She presents for definitive | | treatment. Findings: Normal urethra and bladder. Orthotopic ureteral orifices. | | Approximately 1.5 cm stone which was broken up into multiple small fragments with the | | use of the holmium fiber. Procedure: The patient previously had been consented. She | | was properly identified in the preoperative holding area and was taken to the operating | | room. General anesthesia was induced. The LMA was placed without complication. | | Ciprofloxacin 400 mg was delivered intravenously before the start of the case. After | | surgical pause, a 21-Taiwanese rigid cystoscope was inserted into the bladder without | | complication. The right ureteral orifice was identified with existing ureteral stent. A | | 0.038 inch PTFE guidewire was passed up into the right kidney, and the ureteral stent | | was removed. A dual-lumen catheter was used to place the safety guidewire which was | | secured to the drape. A DUR-8 flexible nephroureteroscope was then passed up in the | | right kidney. The stone was identified and with a 365 micron holmium laser fiber was | | broken up into multiple small fragments. An AquaGuide ureteral access sheath was then | | placed once the stone had been broken into multiple fragments. Through the sheath, | | multiple small pieces were irrigated out. At this point, we felt that the majority of | | the additional fragments were passed on their own. We elected to place ureteral stent. | | This was done in retrograde fashion. A ureteral stent was placed in a retrograde | | fashion. Position was confirmed with fluoroscopy both proximally and distally. An | | 18-Taiwanese Mirza catheter was then placed and filled with 10 cc of sterile water. There | | were no apparent complications. The patient was allowed to wake up and taken to the | | recovery room in stable condition. Dr. Hdez was present and scrubbed for the | | entire case. Disposition: To recovery and then home. Bryan Mchugh | | Chey Pedraza M.D. D / [id number] / [id number] / [id number] / | | [id number] Reviewed or Edited By Bryan Pedraza | Andre Guerrier on 06-22-2007 Electronically signed by Noe Hdez 07-22-2007 06:13:19 PM | | | | | | Complications: | | None. | | | | | | Specimens: | | None. | | | | | | Estimated Blood Loss: | | Minimal. | | | | | | Urine Output: | | Not measured. | | | | | | Fluids: | | Crystalloid 1400 mL. | | | | | | Indications: | | Ms. Heard is a 61-year-old woman with multiple medical | | comorbidities who on imaging was found to have a 1.5 cm stone in the right | | renal pelvis. She presents for definitive treatment. | | | | | | Findings: | | Normal urethra and bladder. Orthotopic ureteral orifices. Approximately | | 1.5 cm stone which was broken up into multiple small fragments with the | | use of | | the holmium fiber. | | | | | | Procedure: | | The patient previously had been consented. She was properly identified in | | the preoperative holding area and was taken to the operating room. General | | anesthesia was induced. The LMA was placed without complication. | | Ciprofloxacin 400 mg was delivered intravenously before the start of the | | case. | | | | | | After surgical pause, a 21-Taiwanese rigid cystoscope was inserted into the | | bladder without complication. The right ureteral orifice was identified | | with existing ureteral stent. A 0.038 inch PTFE guidewire was passed up | | into the right kidney, and the ureteral stent was removed. A dual-lumen | | catheter was used to place the safety guidewire which was secured to the | | drape. A DUR-8 flexible nephroureteroscope was then passed up in the right | | kidney. The stone was identified and with a 365 micron holmium laser fiber | | was broken up into multiple small fragments. An AquaGuide ureteral access | | sheath was then placed once the stone had been broken into multiple | | fragments. Through the sheath, multiple small pieces were irrigated out. | | At this point, we felt that the majority of the additional fragments were | | passed on their own. We elected to place ureteral stent. This was done in | | retrograde fashion. A ureteral stent was placed in a retrograde fashion. | | Position was confirmed with fluoroscopy both proximally and distally. An | | 18-Taiwanese | | Mirza catheter was then placed and filled with 10 cc of sterile water. | | There were no apparent complications. The patient was allowed to wake up | | and taken to the recovery room in stable condition. | | | | | | Dr. Hdez was present and scrubbed for the entire case. | | | | | | Disposition: | | To recovery and then home. | | | | | | | | | | | | | | | | | | Bryan Pedraza M.D. | | | | | | | | | | | | | | Noe Hdez M.D. | | | | | | BDD / HS | | [id number] / [id number] / [id number] / [id number] | | | | | | | | | | | | | | | | | | Reviewed or Edited By Bryan Pedraza M.D. on 06-22-2007 | | Electronically signed by Noe Hdez 07-22-2007 06:13:19 PM | | | | | | | + + documented in this encounter Visit Diagnoses Not on filedocumented in this encounter"
--- OUTSIDE RECORDS SUMMARY | ~2019-07-26 | XMS | Encounter Summary ---
Demographics + + + | Address | BAD ADDRESS | | | [place] [address] | + + + | Home Phone | | + + + | Preferred Language | Unknown | + + + | Marital Status | | + + + | Confucianism Affiliation | 1077 | + + + | Race | Unknown | + + + | Ethnic Group | Unknown | + + + Author + + + | Author | [facility] | | | and [place] | + + + | Organization | [facility] | | | and [...] | | | | | [place] [address] | | + + + + + | Najma Krishnamurthy | ECON | Unknown | | + + + + + | Hector Mack | ECON | [address] | | | | | [place] | | | | | [address] | | + + + + + | Najma Sanches | ECON | Unknown | | + + + + + Care Team Providers + +------+ + | Care Staff Psychiatrist Name | Role | Phone | + +------+ + PCP | Unavailable | + +------+ + Encounter Details +--------+ + + + + | Date | Type | Department | Care Team | Description | +--------+ + + + + | 05/11/ | Hospital | [facility] | Kike Constantino | | | 1996 | Encounter | MED CTR SLEEP | MD Aura [address] [place] [address] | | | | | [address] [place] | [facility] | | | | | [place], [place] | [place] [address] | | | | | [address] | [phone] | | | | | [phone] | | | +--------+ + + + [...]
--- OUTSIDE RECORDS SUMMARY | ~2019-07-26 | XMS | Encounter Summary ---
Demographics + + + | Address | BAD ADDRESS | | | [place] [address] | + + + | Home Phone | | + + + | Preferred Language | Unknown | + + + | Marital Status | | + + + | Islam Affiliation | 1077 | + + + | Race | Unknown | + + + | Ethnic Group | Unknown | + + + Author + + + | Author | [facility] | | | and [place] | + + + | Organization | [facility] | | | and [place] | + + + | Address | Unknown | + + + | Phone | Unavailable | + + + Support + + + + + | Name | Relationship | Address | Phone | + + + + + | Hector Mack | ECON | [address] | | | | | [place] [address] | | + + + + + | Najma Krishnamurthy | ECON | Unknown | | + + + + + | Hector Mack | ECON | [address] | | | | | [place] | | | | | [address] | | + + + + + | Najma Sanches | ECON | Unknown | | + + + + + Care Team Providers + +------+ + | Care Fund Director Name | Role | Phone | + +------+ + PCP | Unavailable | + +------+ + Encounter Details +--------+ + + + + | Date | Type | Department | Care Team | Description | +--------+ + + + + | 02/15/ | Hospital | [facility] | | | | 1995 - | Encounter | MED CTR ICU [address] | | | | | | [place], | | | | 02/18/ | | [place] [address] | | | | 1995 | | [phone] | | | +--------+ + + + [...]
--- OUTSIDE RECORDS SUMMARY | ~2019-07-26 | XMS | Encounter Summary ---
Demographics + + + | Address | [address] | | | [place] [address] | + + + | Home Phone [...] [place] | | | | | [address] | | + + + + + Care Team Providers + +------+ + | Care Office Automation Clerk Name | Role | Phone | [...] | Activity | [address] | [address] | | | | | [address] Mailcode: [id number] | [place], [place] | | | | | [place], [place] | [address] | | | | | [address] | [phone] | | | | | [phone] | | | +--------+ + + + [...]
--- OUTSIDE RECORDS SUMMARY | ~2019-07-26 | XMS | Encounter Summary ---
Demographics + + + | Address | [address] | | | [place] [address] | + + + | Home Phone | | + + + | Preferred Language | Unknown | + + + | Marital Status | | + + + | Sikh Affiliation | PRO | + + + [...] [place] | | | | | [address] | | + + + + + Care Team Providers + +------+ + | Care Pathology Secretary/Transcriptionist Name | Role | Phone | + +------+ + | Tuan Chan MD | PCP | | + +------+ + Encounter Details +--------+ + + + + | Date | Type | Department | Care Team | Description | +--------+ + + + + | 06/25/ | Ancillary | Registration 3181 | Wes Wolff MD | | | 2005 | Registratio | [facility] | [address] | | | | [address] | [address] Mailcode: RPB07 | [place], [place] | | | | | [place], [place] | [address] | | | | | [address] | [phone] | | | | | [phone] | | | +--------+ + + + [...] DEPARTMENT OF | [address] | [place] [address] | | | PATHOLOGY | [address] | | | + + + + + | [facility] DEPARTMENT | [address] | [place] [address] | | | PATHOLOGY | [address] | | | + + + + + PROTHROMBIN TIME (06/25/2005 9:45 AM PST) + + + + + + | Component | Value | Ref Range | Performed | Pathologist | | | | | At | Signature | + + + + + + | INR | 0.90Comment: | 0.90 - 1.20 INR | [facility] | | | | PT INR Therapeutic [...] | + + + + + | [facility] | [address] | [place] [address] | | | PATHOLOGY | [address] | | | + + + + + | [facility] | [address] | [place] [address] | | | PATHOLOGY | [address] [...] Performed At | + + + | [id number] Estimated GFR > 60 mL/min/1.73 sq m if non- | [facility] | | [id number] Estimated GFR > 60 mL/min/1.73 sq m [...] + + + + | [facility] DEPARTMENT | [facility] | [place] [address] | | | PATHOLOGY | [address] | | | + + + + + | [facility] | [address] [facility] [address] | [place] [address] | | | PATHOLOGY | [address] | | | + + + + + documented in this encounter Visit Diagnoses Not on filedocumented in this encounter"
--- OUTSIDE RECORDS SUMMARY | ~2019-07-26 | XMS | Encounter Summary ---
Demographics + + + | Address | [address] | | | [place] [address] | + + + | Home Phone [...] [place] | | | | | [address] | | + + + + + Care Team Providers + +------+ + | Care Kindergarten Paraprofessional Name | Role | Phone | + [...] as of this encounter Progress Notes Interface, Seed Collector In - 07/27/2005 2:07 AM PDT [id number] 07/25/2005 07/25/2005 [id number] ARETHA RAE [address] [place] [address] or July 25, 2005 Tuan Chan M.D. [address] [place], [place] RE: GERMAINE CARIAS MR #: [id number] Dear Dr. Chan: Your patient Ms. Germaine Carias returned for an office visit at [facility] on , July 25, 2005. She, as [...] this kind referral. Sincerely, Wes Wolff M.D. [facility] / [id number] / [id number] / [id number] / cc: Papi Johnson M.D. [facility] General Surgery documented i n this encounter Plan of Treatment Not on filedocumented as of this encounter Visit Diagnoses Not on filedocumented in this encounter"
--- OUTSIDE RECORDS SUMMARY | ~2019-07-26 | XMS | Clinical Summary ---
Demographics + + + | Address | [address] | | | [place] [address] | + + + | Home Phone | | + + + | Preferred Language | Unknown | + + + | Marital Status | | + + + | Orthodox Affiliation | 1077 | + + + | Race | Unknown | + + + | Ethnic Group | Unknown | + + + Author + + + | Author | [facility] (Historical as of | | | 11-14-18) | + + + | Organization | [facility] (Historical as of | | | 11-14-18) [...] [place] | | | | | [address] | | + + + + + | Najma Sanches | ECON | Unknown | | + + + + + Care Team Providers + +------+ + | Care Cake Icer Name | Role | Phone | [...] | 04/27/2014 | + + + | ID (myocardial infarction) | 09/05/2012 | + + [...] | | | | (Season Ended) | 0 | | | + + [...] +------+-------+ + | MEDICARE | MEDICA | [id number] | | | [address] | | | RE | | | | [place] [address] | | | IP-OP | | | | | + +--------+ +------+-------+ + | MEDICAID | EASTER | [id number] | | | [address] | | | N | | | | [place] | | | [place] | | | | [address] | | | EXERCISER | | | | | + +--------+ [...] | 1946 | [phone] | [place] [address] | | | demetrius | | | 2944 | | + +--------+ +--------+ + +
--- OUTSIDE RECORDS SUMMARY | ~2019-07-26 | XMS | Encounter Summary ---
Demographics + + + | Address | BAD ADDRESS | | | [place] [address] | + + + | Home Phone | | + + + | Preferred Language | Unknown | + + + | Marital Status | | + + + | Jewish Affiliation | 1077 | + + + | Race | Unknown | + + + | Ethnic Group | Unknown | + + + Author + + + | Author | [facility] | | | and [place] | + + + | Organization | [facility] | | | and [...] | | | | | [place] [address] | | + + + + + | Najma Krishnamurthy | ECON | Unknown | | + + + + + | Hector Mack | ECON | [address] | | | | | [place] | | | | | [address] | | + + + + + | Najma Sanches | ECON | Unknown | | + + + + + Care Team Providers + +------+ + | Care Anode Adjuster Name | Role | Phone | + +------+ + PCP | Unavailable | + +------+ + Encounter Details +--------+ + + + + | Date | Type | Department | Care Team | Description | +--------+ + + + + | 08/06/ | Hospital | [facility] | Tuan Chan, | LUMBOSACRAL NEURITIS | | 2004 | Encounter | CONVERSION [address] | MD [address] | [address] | | | | [address] | [facility], [place] | | | | | [place], [place] | [address] | | | | | [address] | [phone] | | | | | [phone] | | | +--------+ + + + [...]
--- OUTSIDE RECORDS SUMMARY | ~2019-07-26 | XMS | Encounter Summary ---
Demographics + + + | Address | [address] | | | [place] [address] | + + + | Home Phone | | + + + | Preferred Language | Unknown | + + + | Marital Status | | + + + | Oriental Orthodox Affiliation | PRO | + + + | Race | White | + + + | Ethnic Group | Not or | + + + Author + + + | Author | [facility] | + + + | Organization | [facility] | + + + | Address | Unknown | + + + | Phone | Unavailable | + + + Support + + + + + | Name | Relationship | Address | Phone | + + + + + | Hector Mack | ECON | [address] | | | | | [place] | | | | | [address] | | + + + + + Care Team Providers + +------+ + | Care Paint Stripper Name | Role | Phone | + [...] removal) | | | | Surgery at [facility] [address] | | | | | | [address] [facility] | | | | | | for Health and | | | | | | Healing Building 1, | | | | | | 5th Floor [place], | | | | | | [place] [address] | | | | | | [phone] | | | +--------+ + + + [...]
--- OUTSIDE RECORDS SUMMARY | ~2019-07-26 | XMS | Encounter Summary ---
Demographics + + + | Address | [address] | | | [place] [address] | + + + | Home Phone | | + + + | Preferred Language | Unknown | + + + | Marital Status | | + + + | Jainism Affiliation | PRO | + + + | Race | White | + + + | Ethnic Group | Not or | + + + Author + + + | Author | [facility] | + + + | Organization | [facility] | + + + | Address | Unknown | + + + | Phone | Unavailable | + + + Support + + + + + | Name | Relationship | Address | Phone | + + + + + | Hector Mack | ECON | [address] | | | | | [place] | | | | | [address] | | + + + + + Care Team Providers + +------+ + | Care Web Coordinator Name | Role | Phone | [...] (Primary Dx) | | 2006 | | [place] [address] | | | | | [place] Mailcode: CH4S | | | | | | [facility] Health | | | | | | and Healing, | | | | | | Building 1, 6th | | | | | | Floor [place], [place] | | | | | | [address] | | | | | | [phone] | | | +--------+ + + + [...] Performed At | + + + | [id number] Estimated GFR = 60 mL/min/1.73 sq m if non- | [facility] | | [id number] Estimated GFR > 60 mL/min/1.73 sq m [...] + + | Performing | Address | City/[facility] | Phone Number | | Organization | | | | + + + + + | [facility] | [address] | [place] [address] | | | PATHOLOGY | [address] | | | + + + + + | [facility] DEPARTMENT OF | [address] | [place] [address] | | | PATHOLOGY | [address] [...] DEPARTMENT OF | [address] | [place] [address] | | | PATHOLOGY | [address] | | | + + + + + | [facility] | [address] | [place] [address] | | | PATHOLOGY | [address] | | | + + + + + documented in this encounter Visit Diagnoses + + | Diagnosis | + + | Obesity - Primary Obesity, unspecified | + + documented in this encounter"
--- OUTSIDE RECORDS SUMMARY | ~2019-07-26 | XMS | Encounter Summary ---
Demographics + + + | Address | BAD ADDRESS | | | [place] [address] | + + + | Home Phone [...] Author | [facility] | | | and [place] | + + + | Organization | [facility] [...] | | | | | [place] [address] | | + + + + + | Najma Krishnamurthy | ECON | Unknown | | + + + + + | Hector Mack | ECON | [address] | | | | | [place] | | | | | [address] | | + + + + + | Najma Sanches | ECON | Unknown | | + + + + + Care Team Providers + +------+ + | Care Weatherstrip Machine Operator Name | Role | Phone | + +------+ + PCP | Unavailable | + +------+ + Encounter Details +--------+ + + + + | Date | Type | Department | Care Team | Description | +--------+ + + + + | 12/03/ | Hospital | [facility] | | | | 1997 - | Encounter | MED CTR MED ONC | | | | | | [address] | | | | 12/11/ | | [place] [address] | | | | 1997 | | [phone] | | | +--------+ + + + [...]
--- OUTSIDE RECORDS SUMMARY | ~2019-07-26 | XMS | Encounter Summary ---
Demographics + + + | Address | BAD ADDRESS | | | [place] [address] | + + + | Home Phone [...] + | Author | [facility] | | | and [place] | + + + | Organization | [facility] | [...] | | | | | [place] [address] | | + + + + + | Najma Krishnamurthy | ECON | Unknown | | + + + + + | Hector Mack | ECON | [address] | | | | | [place] | | | | | [address] | | + + + + + | Najma Sanches | ECON | Unknown | | + + + + + Care Team Providers + +------+ + | Care Leach Cell Operator Name | Role | Phone | + +------+ + PCP | Unavailable | + +------+ + Encounter Details +--------+ + + + + | Date | Type | Department | Care Team | Description | +--------+ + + + + | 07/03/ | Hospital | [facility] | | | | 1999 | Encounter | MED CTR EMERGENCY | | | | | | CENTER [address] | | | | | | [place] | | | | | | [address] | | | | | | [phone] | | | +--------+ + + + [...]
--- OUTSIDE RECORDS SUMMARY | ~2019-07-26 | XMS | Encounter Summary ---
Demographics + + + | Address | [address] | | | [place] [address] | + + + | Home Phone [...] [place] | | | | | [address] | | + + + + + Care Team Providers + +------+ + | Care Lining Machine Operator Name | Role | Phone | + +------+ + | Tuan Chan MD | PCP | | + +------+ + Encounter Details +--------+ + + + + | Date | Type | Department | Care Team | Description | +--------+ + + + + | 02/09/ | Discharge | | Summary, Discharge | D/C Summary ODDS | | 2005 | Summary-Tra | | | | | | nscribed | | | | +--------+ + + [...] documented as of this encounter Discharge Summaries Interface, Game Attendant In - 02/20/2006 2:34 AM [facility] [id number] ARETHA RAE [id number] Admission Date: 02/05/2006 Discharge Date: 02/09/2006 Staff Physicians: Herberth Ayala M.D. Papi Johnson M.D. Service: [facility]. Principal Final Diagnosis: Achalasia and morbid obesity. Additional Diagnoses: 1. Diabetes. 2. Hypertension. 3. Hyperlipidemia. 4. Coronary artery disease. Principal Procedure: Combined laparoscopic Heller myotomy and gastric bypass. Additional Procedure: Barium swallow study. Reason for Admission: Ms. Heard is a 60-year-old woman, who presented with achalasia demonstrated on manometry and an upper GI study. She also suffers from morbid obesity. Her BMI is in the 50s, and she has comorbidities including hypertension and diabetes. Hospital Course: The patient was admitted and taken to the operating room where first a laparoscopic Heller myotomy was performed by Dr. Johnson. This was followed by a laparoscopic gastric bypass performed by Dr. Ayala. She tolerated the procedure and was transferred to the mcgrath. On postoperative day #1, she underwent a barium swallow study to evaluate for esophageal leak. This was negative, so she was started on the bariatric diet pathway. She tolerated clears and was then advanced to full liquids which she will continue on for the next 2 weeks. She worked with Physical Therapy and was soon ambulating independently. She was transitioned to oral pain medications. On postoperative day #3, she had some very mild chest pain. EKG was consistent with prior studies, and the pain quickly resolved. On the day of discharge, she was seen by our therapeutic case manager who assisted her with a voucher for a motel. She will stay in the local area for the next 2 days before returning home to [place]. The patient was seen by Nutrition and was counseled regarding the post-gastric bypass and myotomy diet. She expressed good understanding. Condition on Discharge: Discharge condition is good. Discharge Medication(s): 1. Celebrex 200 mg p.o. b.i.d. p.r.n. pain. 2. Lovastatin 20 mg p.o. daily. 3. Klor-Con 20 mEq p.o. b.i.d. with food. 4. Vitamin B12 500 mcg sublingual daily. 5. Pediatric multivitamin with minerals 2 tablets p.o. daily. 6. Calcium carbonate elixir 2.5 mL p.o. b.i.d. 7. Ursodiol 300 mg p.o. b.i.d. x6 months. 8. NitroQuick 0.4 mg one tablet sublingual with chest pain. 9. Soma 350 mg p.o. t.i.d. and nightly. 10. Morphine. 11. Lasix. 12. Lisinopril 5 mg p.o. daily. 13. Ranitidine elixir 150 mg p.o. b.i.d. 14. Colace elixir 100 mg p.o. b.i.d. 15. Albuterol 4 puffs q.4 h. p.r.n. wheezing. 16. Oxycodone elixer 5 mg to 15 mg p.o. q.3 h. p.r.n. pain. 17. Glyburide. Discharge Instruction(s): The patient was instructed to crush all medications that were not given in liquid form. Diet: Bariatric fulls. Activity: as tolerated. Follow up in Surgery Clinic with Dr. Ayala in 2 weeks. Please page [facility] resident to come evaluate at that time too. Sana Timmons M.D. Chey Escobar M.D. / [id number] / [id number] / [id number] / [id number] E: 02/11/2006 cmw cc: Tuan Chan M.D. FAX: [phone] Reviewed or Edited By Sana Timmons on 02-19-2006 Electronically signed by Herberth Brambila 02-19-2006 11:24:08 AM documented i n this encounter Plan of Treatment Not on filedocumented as of this encounter Visit Diagnoses Not on filedocumented in this encounter"
--- OUTSIDE RECORDS SUMMARY | ~2019-07-26 | XMS | Encounter Summary ---
Demographics + + + | Address | [address] | | | [place] [address] | + + + | Home Phone [...] [place] | | | | | [address] | | + + + + + Care Team Providers + +------+ + | Care Sagger Filler Name | Role | Phone | + [...]
--- OUTSIDE RECORDS SUMMARY | ~2019-07-26 | XMS | Encounter Summary ---
Demographics + + + | Address | BAD ADDRESS | | | [place] [address] | + + + | Home Phone | | + + + | Preferred Language | Unknown | + + + | Marital Status | | + + + | Evangelical Affiliation | 1077 | + + + | Race | Unknown | + + + | Ethnic Group | Unknown | + + + Author + + + | Author | [facility] | | | and [place] | + + + | Organization | [facility] | | | and [place] | + + + | Address | Unknown | + + + | Phone | Unavailable | + + + Support + + + + + | Name | Relationship | Address | Phone | + + + + + | Hector Mack | ECON | [address] | | | | | [place] [address] | | + + + + + | Najma Krishnamurthy | ECON | Unknown | | + + + + + | Hector Mack | ECON | [address] | | | | | [place] | | | | | [address] | | + + + + + | Najma Sanches | ECON | Unknown | | + + + + + Care Team Providers + +------+ + | Care Waiter Name | Role | Phone | + +------+ + PCP | Unavailable | + +------+ + Encounter Details +--------+ + + + + | Date | Type | Department | Care Team | Description | +--------+ + + + + | 07/10/ | Hospital | [facility] | | | | 1996 | Encounter | MED CTR EMERGENCY | | | | | | CENTER [address] | | | | | | [place] | | | | | | [address] | | | | | | [phone] | | | +--------+ + + + [...]
--- OUTSIDE RECORDS SUMMARY | ~2019-07-26 | XMS | Encounter Summary ---
Demographics + + + | Address | BAD ADDRESS | | | [place] [address] | + + + | Home Phone | | + + + | Preferred Language | Unknown | + + + | Marital Status | | + + + | Baptism Affiliation | 1077 | + + + | Race | Unknown | + + + | Ethnic Group | Unknown | + + + Author + + + | Author | [facility] | | | and [place] | + + + | Organization | [facility] | | | and [...] | | | | | [place] [address] | | + + + + + | Najma Krishnamurthy | ECON | Unknown | | + + + + + | Hector Mack | ECON | [address] | | | | | [place] | | | | | [address] | | + + + + + | Najma Sanches | ECON | Unknown | | + + + + + Care Team Providers + +------+ + | Care Service Coordinator Elderly Facility Name | Role | Phone | + +------+ + PCP | Unavailable | + +------+ + Encounter Details +--------+ + + + + | Date | Type | Department | Care Team | Description | +--------+ + + + + | 11/10/ | Hospital | [facility] | Oralia Quinonez | | | 2011 | Encounter | HOSPITAL GROUND | [address] | | | | | [address] [place] | [place] [address] | | | | | [place], [place] | [phone] | | | | | [address] | | | | | | [phone] | | | +--------+ + + + [...]
--- OUTSIDE RECORDS SUMMARY | ~2019-07-26 | XMS | Encounter Summary ---
Demographics + + + | Address | BAD ADDRESS | | | [place] [address] | + + + | Home Phone | | + + + | Preferred Language | Unknown | + + + | Marital Status | | + + + | Oriental Orthodox Affiliation | 1077 | + + + | Race | Unknown | + + + | Ethnic Group | Unknown | + + + Author + + + | Author | [facility] | | | and [place] | + + + | Organization | [facility] | | | and [...] | | | | | [place] [address] | | + + + + + | Najma Krishnamurthy | ECON | Unknown | | + + + + + | Hector Mack | ECON | [address] | | | | | [place] | | | | | [address] | | + + + + + | Najma Sanches | ECON | Unknown | | + + + + + Care Team Providers + +------+ + | Care Literacy Teacher Name | Role | Phone | + [...] Encounter | HOSPITAL XRAY [address] | [address] | | | | [address] | [place], [place] | | | | | [place] | [address] | | | | | [address] | [phone] | | | | | [phone] | | | +--------+ + + + [...] multiple projections | | | show near [id number]-ro-[id number] articulation of the medial compartment. | | [...] Dexa scan evaluation is recommended. JOB #: [id number] | | | Digitally Released by: Wayne [...] | Films in multiple projections show near [id number]-fgkr articulation of the | | medial compartment. [...] | | | | | JOB #: [id number] | | Digitally Released by: Wayne Moraes | | | | | | Read By: WAYNE MORAES MD | | Date: 09/02/2016 16:10 | | | + + documented in this encounter Visit Diagnoses Not on filedocumented in this encounter"
--- OUTSIDE RECORDS SUMMARY | ~2019-07-26 | XMS | Encounter Summary ---
Demographics + + + | Address | [address] | | | [place] [address] | + + + | Home Phone | | + + + | Preferred Language | Unknown | + + + | Marital Status | | + + + | Cheondoism Affiliation | PRO | + + + | Race | White | + + + | Ethnic Group | Not or | + + + Author + + + | Author | [facility] | + + + | Organization | [facility] | + + + | Address | Unknown | + + + | Phone | Unavailable | + + + Support + + + + + | Name | Relationship | Address | Phone | + + + + + | Hector Mcak | ECON | [address] | | | | | [place] | | | | | [address] | | + + + + + Care Team Providers + +------+ + | Care Heel Blacker Name | Role | Phone | + [...] removal) | | | | Surgery at [facility] [address] | | | | | | [address] [facility] | | | | | | for Health and | | | | | | Healing Building 1, | | | | | | 5th Floor [place], | | | | | | [place] [address] | | | | | | [phone] | | | +--------+ + + + [...]
--- OUTSIDE RECORDS SUMMARY | ~2019-07-26 | XMS | Encounter Summary ---
Demographics + + + | Address | [address] | | | [place] [address] | + + + | Home Phone [...] [place] | | | | | [address] | | + + + + + Care Team Providers + +------+ + | Care Card Puncher Name | Role | Phone | + [...] 09/07/ | Office | Preoperative | 1, [facility] Inspector Pref[address] | CAD (Coronary Artery | | 2008 | Visit | Medicine Clinic at | [facility] [address] | Disease); Gout; DM | | | | [facility] 4th Floor [address] | [place] [address] | Circ Dis Type II, | | | | [address] | | Uncontrolled (HCC); | | | | Mailcode: CH4S | | Obesity; Achalasia; | | | | [facility] | | Panniculitis; | | | | and Healing, | | Bruise; Other | | | | Building 1,4th Floor | | Specified | | | | [place], [place] | | Pre-Operative | | | | [address] | | Examination | | | | [phone] | | | +--------+---------+ + + + [...] + documented in this encounter Progress Notes Yvette Eisenberg FNP - 09/07/2008 3:58 PM PDTSee Scanned H&P. documented in this encounter Plan of Treatment + + +--------+ + + | Name | Type | Priori | Associated Diagnoses | Order Schedule | | | | ty | | | + + +--------+ + + | [place] COLLECTION VENOUS | Procedures | Routin | [...] uncontrolled(250.72) | | | | | | ([facility]) Obesity | | | | | | [...] | [facility] | [address] | [place] [address] | | | PATHOLOGY | [address] | | | + + + + + | [facility] | [address] | [place] [address] | | | PATHOLOGY | [address] [...] + + + | [facility] | [address] | [place] [address] | | | PATHOLOGY | [address] | | | + + + + + | [facility] | [address] | [place] [address] | | | PATHOLOGY | [address] | | | + + + + + INR (09/07/2008 3:43 PM PDT) + + + + + + | Component | Value | Ref Range | Performed | Pathologist | | | | | At | Signature | + + + + + + | INR | 1.01Comment: | 0.90 - 1.20 INR | [facility] | | | | INR Therapeutic ranges [...] | + + + + + | [facility] DEPARTMENT OF | [address] | [place] [address] | | | PATHOLOGY | [address] | | | + + + + + | [facility] DEPARTMENT OF | [address] | [place] [address] | | | PATHOLOGY | [address] [...] (H) | 60 - 99 mg/dL | [facility] | | | PLASMA | | | [...] Performed At | + + + | [id number] Estimated GFR > 60 mL/min/1.73 sq m if non- | [facility] | | [place] [id number] Estimated GFR > 60 mL/min/1.73 sq m if | DEPARTMENT | | [place] GFR is estimated using the MDRD equation [...] + + + | [facility] | [address] | [place] [address] | | | PATHOLOGY | [address] | | | + + + + + | [facility] | [address] | [place] [address] | | | PATHOLOGY | [address] [...] | | | | | SHAKIRA GARCIA (0332) | | | | | | on [...] view image for the detailed interpretation from [employer] results. | CARDIOLOGY | | | | + + + + + + + + | Performing | Address | City/State/Zipcode | Phone Number | | Organization | | | | + + + + + | [facility] | [address] | [place], [place] | | | CARDIOLOGY | [address] | [address] | | + + + + + | [facility] | [address] | [place], [place] | | | CARDIOLOGY | [address] | [address] | | + + + + + documented in this encounter Visit Diagnoses + + | Diagnosis | + + | CAD (coronary artery disease) Coronary atherosclerosis of unspecified type of vessel, | | [place] or graft | + + | Gout [...]
--- OUTSIDE RECORDS SUMMARY | ~2019-07-26 | XMS | Encounter Summary ---
Demographics + + + | Address | BAD ADDRESS | | | [place] [address] | + + + | Home Phone | | + + + | Preferred Language | Unknown | + + + | Marital Status | | + + + | Gnosticist Affiliation | 1077 | + + + | Race | Unknown | + + + | Ethnic Group | Unknown | + + + Author + + + | Author | [facility] | | | and [place] | + + + | Organization | [facility] [...] | | | | | [place] [address] | | + + + + + | Najma Krishnamurthy | ECON | Unknown | | + + + + + | Hecotr Mack | ECON | [address] | | | | | [place] | | | | | [address] | | + + + + + | Najma Sanches | ECON | Unknown | | + + + + + Care Team Providers + +------+ + | Care Dice Table Operator Name | Role | Phone | + +------+ + PCP | Unavailable | + +------+ + Encounter Details +--------+ + + + + | Date | Type | Department | Care Team | Description | +--------+ + + + + | 10/16/ | Hospital | [facility] | Lalo Londono MD | | | 2004 | Encounter | MED CTR GENERIC OP | [address] | | | | | CONV DEPT [address] | [address] [place] | | | | | [place], | [address] | | | | | [place] [address] | | | | | | [phone] | | | +--------+ + + + [...]
--- OUTSIDE RECORDS SUMMARY | ~2019-07-26 | XMS | Clinical Summary ---
Demographics + + + | Address | BAD ADDRESS | | | [place] [address] | + + + | Home Phone | | + + + | Preferred Language | Unknown | + + + | Marital Status | | + + + | Jainism Affiliation | 1077 | + + + | Race | Unknown | + + + | Ethnic Group | Unknown | + + + Author + + + | Author | [facility] | | | and [place] | + + + | Organization | [facility] | | | and [place] | + + + | Address | Unknown | + + + | Phone | Unavailable | + + + Support + + + + + | Name | Relationship | Address | Phone | + + + + + | Hector Mack | ECON | [address] | | | | | [place] [address] | | + + + + + | Najma Krishnamurthy | ECON | Unknown | | + + + + + | Hector Mack | ECON | [address] | | | | | [place] | | | | | [address] | | + + + + + | Najma Sanches | ECON | Unknown | | + + + + + Care Team Providers + +------+ + | Care Clothing Consultant Name | Role | Phone | [...] +--------+ +---------+--------+ | MEDICARE | MEDICA | [id number] | 05/29/18 | [phone] | | Medica | | | RE | | 94-Pre | 5 | | re | | | PART A | | sent | | | | | | AND B | | | | | | + +--------+ +--------+ +---------+--------+ | MEDICARE | MEDICA | [id number] | 05/29/18 | [phone] | | Medica | | | RE | | 94-Pre | 5 | | re | | | PART A | | sent | | | | | | AND B | | | | | | + +--------+ +--------+ +---------+--------+ | MEDICARE | MEDICA | [id number] | 05/29/18 | [phone] | | Medica | | | RE | | 94-Pre | 5 | | re | | | PART A | | sent | | | | | | AND B | | | | | | + +--------+ +--------+ +---------+--------+ | [employer]AN | MODA | [id number] | 03/31/19 | [phone] | | Medica | | MEDICAID HMO | HEALTH | | 19-Pre | 1 | | id | | | MDCD | | sent | | | | | | [place] | | | | | | + +--------+ +--------+ +---------+--------+ | [place] | MEDICA | [id number] | | [phone] | | Medica | | | ID [place] | | 016-Pr | 2 | | id | | | PLUS | | esent | | | | + +--------+ +--------+ +---------+--------+ | [place] | MEDICA | [id number] | | [phone] | | Medica | | | ID [...] D | al/Fam | | 1946 | [phone] | [place] [address] | | | demetrius | | | 1 (Home) | | + +--------+ +--------+ + + | Germaine Ugalde | Person | Self [birth year] | BAD ADDRESS | | D | al/Fam | | 1946 | [phone] | [place] [address] | | | demetrius | | | 1 (Home) | | + +--------+ +--------+ + + | Germaine Ugalde | Person | Self | [birth year] | | [address] | | D | al/Fam | | 1946 | [phone] | [place] [address] | | | demetrius | | | 1 (Home) | | + +--------+ +--------+ + + | Germaine Ugalde | Person | Self | [birth year] | | BAD ADDRESS | | D | al/Fam | | 1946 | [phone] | [place] [address] | | | demetrius | | | 1 (Home) | | + +--------+ +--------+ + + Advance Directives + + + + + | Type | Date Recorded | Patient | Explanation | | | | Fish Tender | | + + + + + | Power of | | | | | Supervisor [facility] | | | | + + + [...]
--- OUTSIDE RECORDS SUMMARY | ~2019-07-26 | XMS | Encounter Summary ---
Demographics + + + | Address | [address] | | | [place] [address] | + + + | Home Phone [...] + + + | Author | [facility] | + + + | Organization | [facility] | + + + | Address | Unknown | + + + | Phone | Unavailable | + + + Support + + + + + | Name | Relationship | Address | Phone | + + + + + | Hector Mack | ECON | [address] | | | | | [place] | | | | | [address] | | + + + + + Care Team Providers + +------+ + | Care Risk And Insurance Manager Name | Role | Phone | [...] 03/14/ | Telephone | Urology Fertility | Renato Chow MD | Prescription | | 2010 | | [address] | | Clarification | | | | Mailcode: CH10U | | | | | | [facility] | | | | | | and Healing, | | | | | | Building 1, 10th | | | | | | Floor [place], [place] | | | | | | [address] | | | | | | [phone] | | | +--------+ + + + [...]
--- OUTSIDE RECORDS SUMMARY | ~2019-07-26 | XMS | Encounter Summary ---
Demographics + + + | Address | BAD ADDRESS | | | [place] [address] | + + + | Home Phone | | + + + | Preferred Language | Unknown | + + + | Marital Status | | + + + | Scientology Affiliation | 1077 | + + + | Race | Unknown | + + + | Ethnic Group | Unknown | + + + Author + + + | Author | [facility] | | | and [place] | + + + | Organization | [facility] | | | and [...] | | | | | [place] [address] | | + + + + + | Najma Krishnamurthy | ECON | Unknown | | + + + + + | Hector Mack | ECON | [address] | | | | | [place] | | | | | [address] | | + + + + + | Najma Sanches | ECON | Unknown | | + + + + + Care Team Providers + +------+ + | Care Hydroelectric Station Operator Chief Name | Role | Phone | + +------+ + PCP | Unavailable | + +------+ + Encounter Details +--------+ + + + + | Date | Type | Department | Care Team | Description | +--------+ + + + + | 03/03/ | Hospital | [facility] | Colton Long, | | | 2000 | Encounter | MED CTR XRAY [address] | MD [address] | | | | | [place] | [place] | | | | | [place] [address] | [address] | | | | | [phone] | | | +--------+ + + + [...]
--- OUTSIDE RECORDS SUMMARY | ~2019-07-26 | XMS | Encounter Summary ---
Demographics + + + | Address | BAD ADDRESS | | | [place] [address] | + + + | Home Phone [...] | Author | [facility] | | | and [place] | + + + | Organization | [facility] | | | and [...] | | | | | [place] [address] | | + + + + + | Najma Krishnamurthy | ECON | Unknown | | + + + + + | Hector Mack | ECON | [address] | | | | | [place] | | | | | [address] | | + + + + + | Najma Sanches | ECON | Unknown | | + + + + + Care Team Providers + +------+ + | Care It Programmer Name | Role | Phone | + +------+ + PCP | Unavailable | + +------+ + Encounter Details +--------+ + + + + | Date | Type | Department | Care Team | Description | +--------+ + + + + | 08/23/ | Hospital | [facility] | | | | 1991 | Encounter | MED CTR LABORATORY | | | | | | [address] | | | | | | [place] | | | | | | [address] | | | | | | [phone] | | | +--------+ + + + [...]
--- OUTSIDE RECORDS SUMMARY | ~2019-07-26 | XMS | Encounter Summary ---
Demographics + + + | Address | BAD ADDRESS | | | [place] [address] | + + + | Home Phone | | + + + | Preferred Language | Unknown | + + + | Marital Status | | + + + | Anglican Affiliation | 1077 | + + + | Race | Unknown | + + + | Ethnic Group | Unknown | + + + Author + + + | Author | [facility] | | | and [place] | + + + | Organization | [facility] | | | and [place] | + + + | Address | Unknown | + + + | Phone | Unavailable | + + + Support + + + + + | Name | Relationship | Address | Phone | + + + + + | Hector Mack | ECON | [address] | | | | | [place] [address] | | + + + + + | Najma Krishnamurthy | ECON | Unknown | | + + + + + | Hector Mack | ECON | [address] | | | | | [place] | | | | | [address] | | + + + + + | Najma Sanches | ECON | Unknown | | + + + + + Care Team Providers + +------+ + | Care Internal Communications Intern Name | Role | Phone | + +------+ + PCP | Unavailable | + +------+ + Encounter Details +--------+ + + + + | Date | Type | Department | Care Team | Description | +--------+ + + + + | 10/05/ | Hospital | [facility] | Bo Smith | | | 2011 | Encounter | HOSPITAL EMERGENCY | MD [address] | | | | [address] | [facility] | | | | | [address] [place] | [place], [place] | | | | | [address] | [address] | | | | | [phone] | [phone] | | | | | | | [...]
--- OUTSIDE RECORDS SUMMARY | ~2019-07-26 | XMS | Encounter Summary ---
Demographics + + + | Address | BAD ADDRESS | | | [place] [address] | + + + | Home Phone | | + + + | Preferred Language | Unknown | + + + | Marital Status | | + + + | Faith Affiliation | 1077 | + + + | Race | Unknown | + + + | Ethnic Group | Unknown | + + + Author + + + | Author | [facility] | | | and [place] | + + + | Organization | [facility] | | [...] | | | | | [place] [address] | | + + + + + | Najma Krishnamurthy | ECON | Unknown | | + + + + + | Hector Mack | ECON | [address] | | | | | [place] | | | | | [address] | | + + + + + | Najma Sanches | ECON | Unknown | | + + + + + Care Team Providers + +------+ + | Care Manager Meat Name | Role | Phone | + +------+ + PCP | Unavailable | + +------+ + Encounter Details +--------+ + + + + | Date | Type | Department | Care Team | Description | +--------+ + + + + | 07/15/ | Hospital | [facility] | Rina Diaz MD | | | 2003 - | Encounter | [facility] | [address] | | | | | INTENSIVE CARE UNIT | [place] [address] | | | 07/16/ | | [address] | [phone] | | | 2003 | | [place], [place] | | | | | | [address] | | | | | | [phone] | | | +--------+ + + + [...]
--- OUTSIDE RECORDS SUMMARY | ~2019-07-26 | XMS | Encounter Summary ---
Demographics + + + | Address | [address] | | | [place] [address] | + + + | Home Phone | | + + + | Preferred Language | Unknown | + + + | Marital Status | | + + + | Restoration Affiliation | PRO | + + + | Race | White | + + + | Ethnic Group | Not or | + + + Author + + + | Author | [facility] | + + + | Organization | [facility] | + + + | Address | Unknown | + + + | Phone | Unavailable | + + + Support + + + + + | Name | Relationship | Address | Phone | + + + + + | Hector Mack | ECON | [address] | | | | | [place] | | | | | [address] | | + + + + + Care Team Providers + +------+ + | Care Lifter Name | Role | Phone | + [...] | | | | | Surgery at [facility] [address] | | | | | | [facility] | | | | | | for Health and | | | | | | Healing Building 1, | | | | | | 5th Floor [place], | | | | | | [place] [address] | | | | | | [phone] | | | +--------+---------+ + + + [...]
--- OUTSIDE RECORDS SUMMARY | ~2019-07-26 | XMS | Encounter Summary ---
Demographics + + + | Address | BAD ADDRESS | | | [place] [address] | + + + | Home Phone | | + + + | Preferred Language | Unknown | + + + | Marital Status | | + + + | Protestant Affiliation | 1077 | + + + | Race | Unknown | + + + | Ethnic Group | Unknown | + + + Author + + + | Author | [facility] | | | and [place] | + + + | Organization | [facility] | | | and [...] | | | | | [place] [address] | | + + + + + | Najma Krishnamurthy | ECON | Unknown | | + + + + + | Hector Mack | ECON | [address] | | | | | [place] | | | | | [address] | | + + + + + | Najma Sanches | ECON | Unknown | | + + + + + Care Team Providers + +------+ + | Care Captain/Check Airman Name | Role | Phone | + +------+ + PCP | Unavailable | + +------+ + Encounter Details +--------+ + + + + | Date | Type | Department | Care Team | Description | +--------+ + + + + | 04/14/ | Hospital | [facility] | Trevor Keating | | | 2000 - | Encounter | HEART MED CTR | Jesús Oseguera J Jesus | | | | | CARDIAC TRANSPLANT | [address] | | | 04/21/ | | [address] | [place] | | | 2000 | | [place] | [address] | | | | | [address] | [phone] | | | | | [phone] | | | | | | | [place], | | | | | | [address] | | | | | | [place] | | | | | | [address] | | | | | | | [...]
--- OUTSIDE RECORDS SUMMARY | ~2019-07-26 | XMS | Encounter Summary ---
Demographics + + + | Address | BAD ADDRESS | | | [place] [address] | + + + | Home Phone | | + + + | Preferred Language | Unknown | + + + | Marital Status | | + + + | Taoism Affiliation | 1077 | + + + | Race | Unknown | + + + | Ethnic Group | Unknown | + + + Author + + + | Author | [facility] | | | and [place] | + + + | Organization | [facility] [...] | | | | | [place] [address] | | + + + + + | Najma Krishnamurthy | ECON | Unknown | | + + + + + | Hector Mack | ECON | [address] | | | | | [place] | | | | | [address] | | + + + + + | Najma Sanches | ECON | Unknown | | + + + + + Care Team Providers + +------+ + | Care J2Ee Android Developer Name | Role | Phone | + +------+ + PCP | Unavailable | + +------+ + Encounter Details +--------+ + + + + | Date | Type | Department | Care Team | Description | +--------+ + + + + | 12/22/ | Hospital | [facility] | Tuan Chan, | | | 2008 | Encounter | HOSPITAL XRAY [address] | [address] [place] [address] | | | | | [address] | [place], [place] | | | | | [place], [place] | [address] | | | | | [address] | [phone] | | | | | [phone] | | | +--------+ + + + [...]
--- OUTSIDE RECORDS SUMMARY | ~2019-07-26 | XMS | Encounter Summary ---
Demographics + + + | Address | BAD ADDRESS | | | [place] [address] | + + + | Home Phone | | + + + | Preferred Language | Unknown | + + + | Marital Status | | + + + | Evangelical Affiliation | 1077 | + + + | Race | Unknown | + + + | Ethnic Group | Unknown | + + + Author + + + | Author | [facility] | | | and [place] | + + + | Organization | [facility] | | | and [place] | + + + | Address | Unknown | + + + | Phone | Unavailable | + + + Support + + + + + | Name | Relationship | Address | Phone | + + + + + | Hector Mack | ECON | [address] | | | | | [place] [address] | | + + + + + | Najma Krishnamurthy | ECON | Unknown | | + + + + + | Hector Mack | ECON | [address] | | | | | [place] | | | | | [address] | | + + + + + | Najma Sanches | ECON | Unknown | | + + + + + Care Team Providers + +------+ + | Care Road Production General Manager Name | Role | Phone | + +------+ + PCP | Unavailable | + +------+ + Encounter Details +--------+ + + + + | Date | Type | Department | Care Team | Description | +--------+ + + + + | 08/27/ | Hospital | [facility] | Duarte Moon MD | | | 2012 | Encounter | HOSPITAL RESPIRATORY | [address] | | | | | THERAPY [address] | [place] | | | | | [place] | [address] | | | | | [address] | | | | | | [phone] | | | +--------+ + + + [...]
--- OUTSIDE RECORDS SUMMARY | ~2019-07-26 | XMS | Encounter Summary ---
Demographics + + + | Address | [address] | | | [place] [address] | + + + | Home Phone [...] [place] | | | | | [address] | | + + + + + Care Team Providers + +------+ + | Care Patient Account Representative Name | Role | Phone | [...] | Office | Preoperative | 1, [facility] [employer] Sales Representative [address] | Other Specified | | 2007 | Visit | Medicine Clinic at | [facility] [address] [facility] [facility] [address] | Pre-Operative | | | | [facility] 4th Floor [address] | [place] [address] | Examination (Primary | | | | [address] | | Dx) | | | | Mailcode: CH4S | | | | | | [facility] | | | | | | and Healing, | | | | | | Building 1,4th Floor | | | | | | [place], [place] | | | | | | [address] | | | | | | [phone] | | | +--------+---------+ + + + [...] + + + | [facility] DEPARTMENT OF | [address] | [place] [address] | | | PATHOLOGY | [address] | | | + + + + + | [facility] DEPARTMENT OF | [address] [facility] | [place] [address] | | | PATHOLOGY | [address] [...] Performed At | + + + | [id number] Estimated GFR = 48 mL/min/1.73 sq m if non- | [facility] | | [id number] Estimated GFR = 59 mL/min/1.73 sq m [...] [facility] | [address] | [place] [address] | | | PATHOLOGY | [address] | | | + + + + + | [facility] DEPARTMENT | [address] | [place] [address] | | | PATHOLOGY | [address] [...] + + + | Please click | [facility] | | on view image for the detailed interpretation from [employer] results. | CARDIOLOGY | | | | + + + + + + + + | Performing | Address | City/State/Zipcode | Phone Number | | Organization | | | | + + + + + | [facility] | [address] | [place], [place] | | | CARDIOLOGY | [address] | [address] | | + + + + + | [facility] | [address] | [place], [place] | | | CARDIOLOGY | [address] | [address] | | + + + + + documented in this encounter Visit Diagnoses + + | Diagnosis | + + | Other specified pre-operative examination - Primary | + + documented in this encounter
--- OUTSIDE RECORDS SUMMARY | ~2019-07-26 | XMS | Encounter Summary ---
Demographics + + + | Address | [address] | | | [place] [address] | + + + | Home Phone [...] [place] | | | | | [address] | | + + + + + Care Team Providers + +------+ + | Care Nursing Staff Development Coordinator Name | Role | Phone | [...] | Reconstructive | MD [place]in | (Primary Dx) | | | | Surgery at [facility] [address] | | | | | | [facility] | | | | | | for Health and | | | | | | [facility] Building 1, | | | | | | 5th Floor [place], | | | | | | [place] [address] | | | | | | [phone] | | | +--------+---------+ + + + [...] - 06/08/2008 10:23 AM PDTSuguillermo ctive: Germaine SorensenDomingoMack presents 1 months status post panniculectomy with [...]
--- OUTSIDE RECORDS SUMMARY | ~2019-07-26 | XMS | Encounter Summary ---
Demographics + + + | Address | BAD ADDRESS | | | [place] [address] | + + + | Home Phone | | + + + | Preferred Language | Unknown | + + + | Marital Status | | + + + | Restoration Affiliation | 1077 | + + + | Race | Unknown | + + + | Ethnic Group | Unknown | + + + Author + + + | Author | [facility] | | | and [place] | + + + | Organization | [facility] | [...] | | | | | [place] [address] | | + + + + + | Najma Krishnamurthy | ECON | Unknown | | + + + + + | Hector Mack | ECON | [address] | | | | | [place] | | | | | [address] | | + + + + + | Najma Sanches | ECON | Unknown | | + + + + + Care Team Providers + +------+ + | Care Equipment Installer Name | Role | Phone | + +------+ + | Tuan Chan MD | PCP | | + +------+ + Encounter Details +--------+---------+ + + + | Date | Type | Department | Care Team | Description | +--------+---------+ + + + | 06/10/ | Surgery | [facility] | Leandra Chávez, | CV DIAGNOSTIC | | 2016 | | MED CTR CV INTRA OP | [address] | CARDIAC CATH | | | | [address] | [place] | | | | | [place] | [address] | | | | | [address] | | | | | | [phone] | | | +--------+---------+ + + + [...] Unstable angina . She was transferred from [facility] with ongoing chest pain. Today at lunch time she developed chest discomfort. She was preparing lunch at the time. T he discomfort was sharp and stabbing. She was transferred from [facility] on NTG and heparin. The transfer took about 8 hours. The pain has not gone away. She was started on NTG drip a nd heparin. NTG was titrated up. She arrived here on 30 mcg/ min. She still had 4/10 pain . She had no acute ECG changes. She had some dyspnea and diaphoresis no radiation. She was taken to the ear mold laboratory technician due to ongoing chest pain: PROCEDURES PERFORMED: [...] was performed in multiple views using 6 Dominican JL5 and 5 F AL1 and an [...] medication that helps the stomach empty better. [id number] [employer] [place] [address], [place] [address]. All righ ts reserved. This information is [...] PROVIDER: | | | Tuan Chan MD PRIVATE INVESTIGATOR SURVEILLANCE: Dr. Leandra Chávez MD, | | | [facility], [facility] PRE-PROCEDURE DIAGNOSIS: Unstable Angina | | | [...] multiple views | | | using 6 Dominican JL5 and 5 F AL1 and an JESUS diagnostic catheters. | | | A 5 georgian pigtail catheter was advanced into the left [...] RECOMMENDATIONS Continue medical Rx Leandra Chávez MD, [facility], | | | [facility] DATE/TIME: 06/12/2015 0:27 | | | 06/12/2015 0:27 Portions of this chart were created with [employer] | | | voice recognition software. Occasional [...] [address] | [place] | [phone] | | [facility] | | [address] | | | - LABORATORY | | [...] | | | | ERWIN MORALES MD ([id number]) | | | | | | on [...] + | [facility] | [address] | [place] | [phone] | | [facility] | | [address] | | | - LABORATORY | | [...] + | [facility] | [address] | [place] | [phone] | | [facility] | | [address] | | | - LABORATORY | | [...] | mL/min/1.73m2 | LLUVIA | | | EMIRATI | RATE,ESTIMATED | | MEDICAL | | | | mL/min/1.82t7Ksrb than | | CENTER - | | [...] [address] | [place] | [phone] | | [facility] | | [address] | | | - LABORATORY | | [...] [address] | [place] | [phone] | | [facility] | | [address] | | | - LABORATORY | | [...] | | | | | | [employer] | | | | | [...] + | [facility] | [address] | [place] | [phone] | | [facility] | | [address] | | | - LABORATORY | | [...] [address] | [place] | [phone] | | [facility] | | [address] | | | - LABORATORY | | | | + + + + + documented in this encounter Visit Diagnoses Not on filedocumented in this encounter
--- OUTSIDE RECORDS SUMMARY | ~2019-07-26 | XMS | Encounter Summary ---
Demographics + + + | Address | BAD ADDRESS | | | [place] [address] | + + + | Home Phone | | + + + | Preferred Language | Unknown | + + + | Marital Status | | + + + | Quaker Affiliation | 1077 | + + + | Race | Unknown | + + + | Ethnic Group | Unknown | + + + Author + + + | Author | [facility] | | | and [place] | + + + | Organization | [facility] [...] | | | | | [place] [address] | | + + + + + | Najma Krishnamurthy | ECON | Unknown | | + + + + + | Hector Mack | ECON | [address] | | | | | [place] | | | | | [address] | | + + + + + | Najma Sanches | ECON | Unknown | | + + + + + Care Team Providers + +------+ + | Care Safety Tech Name | Role | Phone | + +------+ + | Tuan Chan MD | PCP | | + +------+ + Encounter Details +--------+ + + + + | Date | Type | Department | Care Team | Description | +--------+ + + + + | 11/02/ | Orders Only | [facility] | Provider, | | | 2019 | | SYSTEM GENERIC OP | [address] | | | | | [address] | [address] | | | | | [address] [place], [place] | [place] [address] | | | | | [address] | | | | | | [phone] | | | +--------+ + + + [...]
--- OUTSIDE RECORDS SUMMARY | ~2019-07-26 | XMS | Clinical Summary ---
Demographics + + + | Address | [address] | | | [place] [address] | + + + | Home Phone | | + + + | Preferred Language | Unknown | + + + | Marital Status | | + + + | Mandaeism Affiliation | PRO | + + + | Race | White | + + + | Ethnic Group | Not or | + + + Author + + + | Author | [facility] | + + + | Organization | [facility] | + + + | Address | Unknown | + + + | Phone | Unavailable | + + + Support + + + + + | Name | Relationship | Address | Phone | + + + + + | Hector Mack | ECON | [address] | | | | | [place] | | | | | [address] | | + + + + + Care Team Providers + +------+ + | Care Feather Washer Name | Role | Phone | + +------+ + | Tuan Chan MD | PCP | | + +------+ + Source Comments AMY is fully live on both [facility] Ambulatory and [facility] InPatient.[facility] Allergies + + + + + [...] | | | | | | | [address] | | + +--------+ +--------+ + +--------+ | [place]ICAID [place] | OHP | xxxxxxxx | 07/01/19 | [phone] | [address] | Medica | | | PLUS | | 10-Pre | 6 | [address] | id | | | OPEN | | sent | | [place] | | | | CARD | | | | [id number] | | + +--------+ +--------+ + +--------+ [...] demetrius | | | 4 (Home) | [address] | + +--------+ +--------+ + + Advance Directives + + + + + | Type | Date Recorded | Patient | Explanation | | | | Fur 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
--- OUTSIDE RECORDS SUMMARY | ~2019-07-26 | XMS | Encounter Summary ---
Demographics + + + | Address | [address] | | | [place] [address] | + + + | Home Phone [...] [place] | | | | | [address] | | + + + + + Care Team Providers + +------+ + | Care Professor Of Psychiatry Name | Role | Phone | + [...] | | | obstructing | [facility] | [address] | | | | | calculus at | [address] | [address] | | | | | [facility] | [facility] | [place], [place] | | | | | MARY[place]. | [address] | [address] | | | | | | [address] | | | | | | | [place] | | | | | | | [place] [address] | | | | | | | Phone: | | | | | | | [phone] | | | | | | | Fax: | | | | | | | [phone] | | +--------+--------+ + + + + Encounter Details +--------+---------+ + + + | Date | Type | Department | Care Team | Description | +--------+---------+ + + + | 03/11/ | Office | Urology Fertility | Renato Chow MD | Kidney stone | | 2010 | Visit | [address] | | (Primary Dx); Other | | | | Mailcode: [id number] | | specified | | | | [facility] | | pre-operative | | | | and Healing, | | examination | | | | Building | | | | | | [place], [place] | | | | | | [address] | | | | | | [phone] | | | +--------+---------+ + + + [...] encounter Patient Instructions Patient Instructions Renato Chow Md - 03/11/2011 4:44 PM PST Registration Locations (please check in at one of the following registration desks prior to surgery) For surgeries scheduled to take place on the [place] at the [facility]: Surgeries scheduled in the [facility] ([address] [place] [address]): registration is located on the 4th floor of [facility] (Day Surgery). Surgeries scheduled in the [facility]: registration is located on the 9th floor. Surgeries scheduled in [facility]: registration is located on the 6th floor. Surgeries scheduled in the [facility]: registration is located i n the [facility] lobby on the first floor. For surgeries scheduled to take place at the [facility]: registration is l [...] If you use specialized medical equipment at [facility], please check with your provider before [...] Cessation Brochure.E lectronically signed by Renato Chow Md at 03/11/2011 4:44 PM PST documented in this encounter Progress Notes Renato Chow Md - 03/11/2011 4:25 PM PST Identification: Germaine Heard is a 65 y.o. female referred by Dr. 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 She has been maintained of Plavx since then but stopped it over a week ago. She has no cardiac symptoms especially since w eight loss from 550 to 190 after gastric bypass in 2005. Pannus removed more recently by Dr. Gia Amin at [facility]. She suffers from chronic back pain [...] 1 Years of Education: N/A Occupational History [employer] Social History Main Topics Smoking status: Former [...] or other risks. Renato Chow MD, FACS heng, VAUGHN Wright - 02/2011 3:56 PM PST Review of Systems Constitutional: [...] systems reviewed and are negative. Physical Exam heng, VAUGHN Wright - 03/11 3:51 PM PSTUA done per [...] + + + | Test performed by: [facility] | [facility] | | Outpatient Lab CH[address] [address] | DEPARTMENT OF | | | PATHOLOGY | + + + + + + + + | Performing | Address | City/State/Zipcode | Phone Number | | Organization | | | | + + + + + | [facility] DEPARTMENT | [address] | [place] [address] | | | PATHOLOGY | [address] [...] + + + | Test performed by: [facility] | [facility] | | Outpatient Lab [facility] [address] [place], [place] [address] | DEPARTMENT OF | | Sent to [facility]. | PATHOLOGY | + + + + + + + + | Performing | Address | City/State/Zipcode | Phone Number | | Organization | | | | + + + + + | [facility] DEPARTMENT OF | [address] | [place] [address] | | | PATHOLOGY | [address] | | | + + + + + 12 LEAD ECG (03/11/2011 4:58 PM PST) + + + + + + | Component | Value | Ref Range | Performed | Pathologist | | | | | At | Signature | + + + + + + | VENTRICULAR | 62 | BPM | [facility] DEPT | | | RATE | [...] view image for the detailed interpretation from [facility] results. | CARDIOLOGY | + + + + + + + + | Performing | Address | City/State/Zipcode | Phone Number | | Organization | | | | + + + + + | [facility] DEPT OF | [address] | [place], [place] | | | CARDIOLOGY | [address] | [address] | | + + + + + [...] | | | | | | Culture: Multiple | | | | | | organisms are present | | | | | | indicating probable | | | | | | contamination or | | | | | | colonization not related | | | | | | to infection. | | | | | | Further work-up of | | | | | | these organisms may | | | | | | result in | | | | | | clinically misleading | | | | | | information due to the | | | | | | low numbers | | | | | | and/or mixture of | | | | | | organisms present. | | | | | | Recollection is | | | | | | suggested if clinically | | | | | | indicated. Final | | | | | | Report Resulted: | | | | | | 03/13/11 | | | | | | [facility] | | | | | | [place] | | | | | | [facility] | | | | | | [address] [facility] | | | | | | [place], [place] | | | | | | [address] | | | | + + + + + + + + | Specimen | + + | Urine - Voided | + + + + + + + | Performing | Address | City/State/Zipcode | Phone Number | | Organization | | | | + + + + + | [facility] | [address] | [place] [address] | | | LAB-MICRO | | | [...] + + | [facility] | [address] [facility] [address] | [place] [address] | | | OF CARE TESTS | | | | + + + + + documented in this encounter Visit Diagnoses + + | Diagnosis | + + | Kidney stone - Primary Calculus of kidney | + + | Other specified pre-operative examination | + + documented in this encounter
--- OUTSIDE RECORDS SUMMARY | ~2019-07-26 | XMS | Encounter Summary ---
Demographics + + + | Address | BAD ADDRESS | | | [place] [address] | + + + | Home Phone [...] + | Author | [facility] | | | and [place] | + + + | Organization | [facility] | | [...] | | | | | [place] [address] | | + + + + + | Najma Krishnamurthy | ECON | Unknown | | + + + + + | Hector Mack | ECON | [address] | | | | | [place] | | | | | [address] | | + + + + + | Najma Sanches | ECON | Unknown | | + + + + + Care Team Providers + +------+ + | Care Dryerman/Woman Name | Role | Phone | + +------+ + PCP | Unavailable | + +------+ + Encounter Details +--------+ + + + + | Date | Type | Department | Care Team | Description | +--------+ + + + + | 05/11/ | Hospital | [facility] | Kike Constantino | | | 1996 | Encounter | MED CTR SLEEP | MD Aura [address] [place] [address] | | | | | [address] [place] | [facility] | | | | | [place], [place] | [place] [address] | | | | | [address] | [phone] | | | | | [phone] | | | +--------+ + + + [...]
--- OUTSIDE RECORDS SUMMARY | ~2019-07-26 | XMS | Encounter Summary ---
Demographics + + + | Address | [address] | | | [place] [address] | + + + | Home Phone [...] [place] | | | | | [address] | | + + + + + Care Team Providers + +------+ + | Care Waste Water Or Water Plant Operator Name | Role | Phone | [...] | | | | | | [place] [address] | | | +--------+--------+ + + + [...]
--- OUTSIDE RECORDS SUMMARY | ~2019-07-26 | XMS | Encounter Summary ---
Demographics + + + | Address | BAD ADDRESS | | | [place] [address] | + + + | Home Phone [...] | Author | [facility] | | | and [place] | + + + | Organization | [facility] | | | and [...] | | | | | [place] [address] | | + + + + + | Najma Krishnamurthy | ECON | Unknown | | + + + + + | Hector Mack | ECON | [address] | | | | | [place] | | | | | [address] | | + + + + + | Najma Sanches | ECON | Unknown | | + + + + + Care Team Providers + +------+ + | Care Discharge Coordinator Name | Role | Phone | + +------+ + PCP | Unavailable | + +------+ + Encounter Details +--------+ + + + + | Date | Type | Department | Care Team | Description | +--------+ + + + + | 04/23/ | Hospital | [facility] GENERIC OP | | LUMBAGO | | 2001 | Encounter | CONVERSION DE[address] | [address] | | | | | | [place], [place] | | | | | | [address] | | | | | | [phone] | | | +--------+ + + + [...] + | Diagnosis | + + | Lumbago | + + documented in this encounter"
--- OUTSIDE RECORDS SUMMARY | ~2019-07-26 | XMS | Encounter Summary ---
Demographics + + + | Address | BAD ADDRESS | | | [place] [address] | + + + | Home Phone [...] | Author | [facility] | | | and [place] | + + + | Organization | [facility] | | | and [place] | + + + | Address | Unknown | + + + | Phone | Unavailable | + + + Support + + + + + | Name | Relationship | Address | Phone | + + + + + | Hecotr Mack | ECON | [address] | | | | | [place] [address] | | + + + + + | Najma Krishnamurthy | ECON | Unknown | | + + + + + | Hector Mack | ECON | [address] | | | | | [place] | | | | | [address] | | + + + + + | Najma Sanches | ECON | Unknown | | + + + + + Care Team Providers + +------+ + | Care Solar Energy Engineer Name | Role | Phone | + +------+ + PCP | Unavailable | + +------+ + Encounter Details +--------+ + + + + | Date | Type | Department | Care Team | Description | +--------+ + + + + | 01/16/ | Hospital | [facility] | | | | 2000 | Encounter | MED CTR XRAY [address] | | | | | | [address] | | | | | | [place] [address] | | | | | | [phone] | | | +--------+ + + + [...]
--- OUTSIDE RECORDS SUMMARY | ~2019-07-26 | XMS | Encounter Summary ---
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
--- OUTSIDE RECORDS SUMMARY | ~2019-07-26 | XMS | Encounter Summary ---
Demographics + + + | Address | [address] | | | [place] [address] | + + + | Home Phone | | + + + | Preferred Language | Unknown | + + + | Marital Status | | + + + | Samaritan Affiliation | PRO | + + + [...] [place] | | | | | [address] | | + + + + + Care Team Providers + +------+ + | Care Middleware Solutions Architect Name | Role | Phone | [...] | Eugenio Mailcode: [id number] | [address] [place], | | | | | [place], [place] | [place] [address] | | | | | [address] | [phone] | | | | | [phone] | | | +--------+ + + + [...]
--- OUTSIDE RECORDS SUMMARY | ~2019-07-26 | XMS | Encounter Summary ---
Demographics + + + | Address | BAD ADDRESS | | | [place] [address] | + + + | Home Phone [...] + | Author | [facility] | | | and [place] | + + + | Organization | [facility] | | | and [place] | + + + | Address | Unknown | + + + | Phone | Unavailable | + + + Support + + + + + | Name | Relationship | Address | Phone | + + + + + | Hector Mack | ECON | [address] | | | | | [place] [address] | | + + + + + | Najma Krishnamurthy | ECON | Unknown | | + + + + + | Hector Mack | ECON | [address] | | | | | [place] | | | | | [address] | | + + + + + | Najma Sanches | ECON | Unknown | | + + + + + Care Team Providers + +------+ + | Care Ethologist Name | Role | Phone | + +------+ + PCP | Unavailable | + +------+ + Encounter Details +--------+ + + + + | Date | Type | Department | Care Team | Description | +--------+ + + + + | 01/21/ | Hospital | [facility] | Lalo Londono MD | | | 2004 | Encounter | MED CTR XRAY [address] | [address] | | | | | [place] | [address] [place] [address] | | | | | [place] [address] | [address] | | | | | [phone] | | | +--------+ + + + [...]
--- OUTSIDE RECORDS SUMMARY | ~2019-07-26 | XMS | Encounter Summary ---
Demographics + + + | Address | BAD ADDRESS | | | [place] [address] | + + + | Home Phone | | + + + | Preferred Language | Unknown | + + + | Marital Status | | + + + | Christianity Affiliation | 1077 | + + + | Race | Unknown | + + + | Ethnic Group | Unknown | + + + Author + + + | Author | [facility] | | | and [place] | + + + | Organization | [facility] | [...] | | | | | [place] [address] | | + + + + + | Najma Krishnamurthy | ECON | Unknown | | + + + + + | Hector Mack | ECON | [address] | | | | | [place] | | | | | [address] | | + + + + + | Najma Sanches | ECON | Unknown | | + + + + + Care Team Providers + +------+ + | Care Powerhouse Tender Name | Role | Phone | [...] | 2018 | | HOSPITAL DERMATOLOGY | AMMUNITION ASSEMBLY II LABORER [address] | | | | | CLINIC [address] | [place], | | | | | [address] [place], | [place] [address] | | | | | [place] [address] | [phone] | | | | | [phone] | | | +--------+ + + + [...]
--- OUTSIDE RECORDS SUMMARY | ~2019-07-26 | XMS | Encounter Summary ---
Demographics + + + | Address | BAD ADDRESS | | | [place] [address] | + + + | Home Phone [...] | Author | [facility] | | | and [place] | + + + | Organization | [facility] | | | and [...] | | | | | [place] [address] | | + + + + + | Najma Krishnamurthy | ECON | Unknown | | + + + + + | Hector Mack | ECON | [address] | | | | | [place] | | | | | [address] | | + + + + + | Najma Sanches | ECON | Unknown | | + + + + + Care Team Providers + +------+ + | Care Supervisor Paste Plant Name | Role | Phone | + [...] [address] | | | | | | [place], [place] | | | | | | [address] | | | | | | [phone] | | | +--------+ + + + [...]
--- OUTSIDE RECORDS SUMMARY | ~2019-07-26 | XMS | Encounter Summary ---
Demographics + + + | Address | BAD ADDRESS | | | [place] [address] | + + + | Home Phone [...] Author | [facility] | | | and [place] | + + + | Organization | [facility] | | | and [...] | | | | | [place] [address] | | + + + + + | Najma Krishnamurthy | ECON | Unknown | | + + + + + | Hector Mack | ECON | [address] | | | | | [place] | | | | | [address] | | + + + + + | Najma Sanches | ECON | Unknown | | + + + + + Care Team Providers + +------+ + | Care Harness Racing Handicapper Name | Role | Phone | + +------+ + PCP | Unavailable | + +------+ + Encounter Details +--------+ + + + + | Date | Type | Department | Care Team | Description | +--------+ + + + + | 07/23/ | [facility] | [facility] | Duarte Moon MD | | | 2012 | Encounter | [facility] | [address] | | | | | [facility] [address] | [facility], [place] | | | | | [address] [facility], | [address] | | | | | [place] [address] | | | | | | [phone] | | | +--------+ + + + [...]
--- OUTSIDE RECORDS SUMMARY | ~2019-07-26 | XMS | Encounter Summary ---
Demographics + + + | Address | BAD ADDRESS | | | [place] [address] | + + + | Home Phone [...] + | Author | [facility] | | | and [place] | + + + | Organization | [facility] | | | and [place] | + + + | Address | Unknown | + + + | Phone | Unavailable | + + + Support + + + + + | Name | Relationship | Address | Phone | + + + + + | Hector Mack | ECON | [address] | | | | | [place] [address] | | + + + + + | Najma Krishnamurthy | ECON | Unknown | | + + + + + | Hector Mack | ECON | [address] | | | | | [place] | | | | | [address] | | + + + + + | Najma Sanches | ECON | Unknown | | + + + + + Care Team Providers + +------+ + | Care Table Assembler Name | Role | Phone | + +------+ + | Tuan Chan MD | PCP | | + +------+ + Encounter Details +--------+ + + + + | Date | Type | Department | Care Team | Description | +--------+ + + + + | 01/03/ | Emergency | [facility] | Silas Maravilla | Cellulitis of chest | | 2018 | | HOSPITAL EMERGENCY | MD [address] | [place] (Primary Dx) | | | | [address] | [place], | | | | | [place], [place] | [place] [address] | | | | | [address] | [phone] | | | | | [phone] | | | +--------+ + + + [...] not be allowed to run out. Contact [facility] Medical clinic as well as [facility] Friday to establish with a [...] | | 0 | | | | (KKEIRY TUBBS) 10 | Daily. | | | | [...] | | | FICATI | | | ON?10/ | | | | | | 8 | | | 09:16? | | | JENNI- | | | BARNET | | | T, | | | GERMAINE | | | D?MRN: | | | | | | [id number] | | | [id number] | | | his | | | [...] | | | St. | | | [place] | | | y | | | [...] | | | St. | | | [place] | | | y | | | [...] MED | | | | | | [address] | | | 919 | | | OXYCOD | | | ONE-AC | | | ETAMIN | | | OPHEN | | | 10-325 | | | 145 | | | TUAN | | | CONKLI | | | N, MD | | | 2 0 | | | 2018-0 | | | 919 | | | MORPHI | | | [...] | | | Jamison | | | [facility], | | | [place] - | | | info@c | | | ollect | | | ivemed | | | icalte | | | [employer] | | | | +---+--------+ documented in [...]
--- OUTSIDE RECORDS SUMMARY | ~2019-07-26 | XMS | Encounter Summary ---
Demographics + + + | Address | BAD ADDRESS | | | [place] [address] | + + + | Home Phone [...] Author | [facility] | | | and [place] | + + + | Organization | [facility] | | | and [...] | | | | | [place] [address] | | + + + + + | Najma Krishnamurthy | ECON | Unknown | | + + + + + | Hector Mack | ECON | [address] | | | | | [place] | | | | | [address] | | + + + + + | Najma Sanches | ECON | Unknown | | + + + + + Care Team Providers + +------+ + | Care Public Information Coordinator Name | Role | Phone | + +------+ + PCP | Unavailable | + +------+ + Encounter Details +--------+ + + + + | Date | Type | Department | Care Team | Description | +--------+ + + + + | 08/23/ | Hospital | [facility] | | | | 1991 | Encounter | MED CTR LABORATORY | | | | | | [address] | | | | | | [place] | | | | | | [address] | | | | | | [phone] | | | +--------+ + + + [...]
--- OUTSIDE RECORDS SUMMARY | ~2019-07-26 | XMS | Encounter Summary ---
Demographics + + + | Address | BAD ADDRESS | | | [place] [address] | + + + | Home Phone | | + + + | Preferred Language | Unknown | + + + | Marital Status | | + + + | Sabianism Affiliation | 1077 | + + + | Race | Unknown | + + + | Ethnic Group | Unknown | + + + Author + + + | Author | [facility] | | | and [place] | + + + | Organization | [facility] | | | and [place] | + + + | Address | Unknown | + + + | Phone | Unavailable | + + + Support + + + + + | Name | Relationship | Address | Phone | + + + + + | Hector Mack | ECON | [address] | | | | | [place] [address] | | + + + + + | Najma Krishnamurthy | ECON | Unknown | | + + + + + | Hector Mack | ECON | [address] | | | | | [place] | | | | | [address] | | + + + + + | Najma Sanches | ECON | Unknown | | + + + + + Care Team Providers + +------+ + | Care Legal Services Professional Name | Role | Phone | + +------+ + PCP | Unavailable | + +------+ + Encounter Details +--------+ + + + + | Date | Type | Department | Care Team | Description | +--------+ + + + + | 04/14/ | Hospital | [facility] | Trevor Keating | | | 2000 - | Encounter | HEART MED CTR | Jesús Oseguera J Jesus | | | | | CARDIAC TRANSPLANT | SHAYLA HOGAN | | | 04/21/ | | [address] | [place] | | | 2000 | | [place] | [address] | | | | | [address] | [phone] | | | | | [phone] | | | | | | | [...]
--- OUTSIDE RECORDS SUMMARY | ~2019-07-26 | XMS | Encounter Summary ---
Demographics + + + | Address | [address] | | | [place] [address] | + + + | Home Phone | | + + + | Preferred Language | Unknown | + + + | Marital Status | | + + + | Alevism Affiliation | PRO | + + + | Race | White | + + + | Ethnic Group | Not or | + + + Author + + + | Author | [facility] | + + + | Organization | [facility] | + + + | Address | Unknown | + + + | Phone | Unavailable | + + + Support + + + + + | Name | Relationship | Address | Phone | + + + + + | Hector Mack | ECON | [address] | | | | | [place] | | | | | [address] | | + + + + + Care Team Providers + +------+ + | Care Staff Mechanical Engineer Name | Role | Phone | + +------+ + | Tuan Chan MD | PCP | | + +------+ + Encounter Details +--------+ + + + + | Date | Type | Department | Care Team | Description | +--------+ + + + + | 06/25/ | Ancillary | Registration 3181 | Wes Wolff MD | | | 2005 | Registratio | [facility] | [address] | | | | [address] | [address] Mailcode: RPB07 | [place], [place] | | | | | [place], [place] | [address] | | | | | [address] | [phone] | | | | | [phone] | | | +--------+ + + + [...] DEPARTMENT OF | [address] | [place] [address] | | | PATHOLOGY | [address] | | | + + + + + | [facility] DEPARTMENT | [address] | [place] [address] | | | PATHOLOGY | [address] | | | + + + + + PROTHROMBIN TIME (06/25/2005 9:45 AM PST) + + + + + + | Component | Value | Ref Range | Performed | Pathologist | | | | | At | Signature | + + + + + + | INR | 0.90Comment: | 0.90 - 1.20 INR | [facility] | | | | PT INR Therapeutic [...] | + + + + + | [facility] | [address] | [place] [address] | | | PATHOLOGY | [address] | | | + + + + + | [facility] | [address] | [place] [address] | | | PATHOLOGY | [address] [...] Performed At | + + + | [id number] Estimated GFR > 60 mL/min/1.73 sq m if non- | [facility] | | [id number] Estimated GFR > 60 mL/min/1.73 sq m [...] | + + + + + | [facility] DEPARTMENT | [facility] | [place] [address] | | | PATHOLOGY | [address] | | | + + + + + | [facility] | [address] | [place] [address] | | | PATHOLOGY | [address] | | | + + + + + documented in this encounter Visit Diagnoses Not on filedocumented in this encounter"
--- OUTSIDE RECORDS SUMMARY | ~2019-07-26 | XMS | Encounter Summary ---
Demographics + + + | Address | [address] | | | [place] [address] | + + + | Home Phone [...] [place] | | | | | [address] | | + + + + + Care Team Providers + +------+ + | Care Dance Artist Name | Role | Phone | [...] | | | | | | | [place], [place] | | | | | | | [address] | | | | | | | Phone: | | | | | | | [phone] | | | | | | | Fax: | | | | | | | [phone] | +--------+--------+ + + + + Encounter Details +--------+---------+ + + + | Date | Type | Department | Care Team | Description | +--------+---------+ + + + | 05/09/ | Office | Plastic and | Resident, Pls | Panniculitis | | 2008 | Visit | Reconstructive | [address] | (Primary Dx) | | | | Surgery at [facility] [address] | [place] [address] | | | | | [facility] | | | | | | for Health and | | | | | | Healing Building 1, | | | | | | 5th Floor [place], | | | | | | [place] [address] | | | | | | [phone] | | | +--------+---------+ + + + [...] Years of Education: N/A 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
--- OUTSIDE RECORDS SUMMARY | ~2019-07-26 | XMS | Encounter Summary ---
Demographics + + + | Address | [address] | | | [place] [address] | + + + | Home Phone [...] [place] | | | | | [address] | | + + + + + Care Team Providers + +------+ + | Care Animal Physiology Teacher Name | Role | Phone | [...] | | | | | | | [place] | | | | | | | [facility] | | | | | | | [facility] | | | | | | | ([facility]) | | | | | | | [place], | | | | | | | [place] [address] | | | | | | | Phone: | | | | | | | [phone] | | | | | | | Fax: | | | | | | | [phone] | +--------+--------+ + + + + Encounter Details +--------+ + + + + | Date | Type | Department | Care Team | Description | +--------+ + + + + | 09/08/ | Hospital | [facility] [address] | [place], | | | 2008 | Encounter | [address] | MD [address] | | | | | [place] | [facility] [place] | | | | | [facility] | [address] | | | | | ([facility]) | [phone] | | | | | [place], [place] | | | | | | [address] | | | | | | [phone] | | | +--------+ + + + [...] to urinate. HAVING A URETERAL STENT: Call: [facility] Urology/Renal Transplant at If you have [...] 2 weeks Follow Up Tests: (Tests at [facility] must be entered into [facility]) Ureteral stent removal Discharge Patient To: Home [...] you can discuss it with your manager user experience and colleagues so that possible temporary adjustments [...] this happens, you should contact the urologist air pollution control engineer for [employer]. IS THERE POSSIBILITY OF A URINARY TRACT [...] urine. For medical emergencies, call 911. Call: [facility] Urology/Renal Transplant at If you have [...] 2 weeks Follow Up Tests: (Tests at [facility] must be entered into [facility]) Ureteral stent removal Discharge Patient To: Home Discharging Provider: GAUTAM TAVERAS MD Date Completed: 09/08/2008 [facility] After CYSTOSCOPY Follow the guidelines [...] from 8:00 4:30, call the Urology Clinic [phone]. After hours, weekend and holidays call the Hospital Mult Au Matic Operator at [phone]. Ask for them to page your doctor. [...] | | | | | acid.Performed by [facility] | | | | | | [facility],[address] | | | | | | [place] [address] | | | | | | [phone]. | | | | | | [facility], | | | | | | [...] | + + + + + | [facility] | [address] | [place] [address] | | | PATHOLOGY | [address] [...]
--- OUTSIDE RECORDS SUMMARY | ~2019-07-26 | XMS | Clinical Summary ---
Demographics + + + | Address | [address] | | | [place] [address] | + + + | Home Phone | | + + + | Preferred Language | Unknown | + + + | Marital Status | | + + + | Amish Affiliation | PRO | + + + | Race | White | + + + | Ethnic Group | Not or | + + + Author + + + | Author | [facility] | + + + | Organization | [facility] | + [...] [place] | | | | | [address] | | + + + + + Care Team Providers + +------+ + | Care Before And After School Daycare Worker Name | Role | Phone | + +------+ + | Tuan Chan MD | PCP | | + +------+ + Source Comments AMY is fully live on both [facility] Ambulatory and [facility] InPatient.[facility] Allergies + + + + [...] | | | | | | | [address] | | + +--------+ +--------+ + +--------+ | MEDICAID [place] | OHP | xxxxxxxx | 07/01/19 | [phone] | [address] | Medica | | | PLUS | | 10-Pre | 6 | [address] | id | | | OPEN | | sent | | [place] | | | | CARD | | | | [address] | | + +--------+ +--------+ + +--------+ [...] demetrius | | | 4 (Home) | [address] | + +--------+ +--------+ + + Advance Directives + + + + + | Type | Date Recorded | Patient | Explanation | | | | Special Delivery Messenger | | + + + + + | Advance | | | | | Directives and | | | | | Living Will | | | | + + + + + | Power of | | | | | Quality Engineer | | | | + + + [...]
--- OUTSIDE RECORDS SUMMARY | ~2019-07-26 | XMS | Encounter Summary ---
Demographics + + + | Address | BAD ADDRESS | | | [place] [address] | + + + | Home Phone [...] | Author | [facility] | | | and [place] | + + + | Organization | [facility] | | | and [...] | | | | | [place] [address] | | + + + + + | Najma Krishnamurthy | ECON | Unknown | | + + + + + | Hector Mack | ECON | [address] | | | | | [place] | | | | | [address] | | + + + + + | Najma Sanches | ECON | Unknown | | + + + + + Care Team Providers + +------+ + | Care Rod Greaser Name | Role | Phone | + +------+ + PCP | Unavailable | + +------+ + Encounter Details +--------+ + + + + | Date | Type | Department | Care Team | Description | +--------+ + + + + | 07/03/ | Hospital | [facility] | | | | 1999 | Encounter | MED CTR EMERGENCY | | | | | | CENTER [address] | | | | | | [place] | | | | | | [address] | | | | | | [phone] | | | +--------+ + + + [...]
--- OUTSIDE RECORDS SUMMARY | ~2019-07-26 | XMS | Encounter Summary ---
Demographics + + + | Address | BAD ADDRESS | | | [place] [address] | + + + | Home Phone [...] | Author | [facility] | | | and [place] | + + + | Organization | [facility] | | | and [...] | | | | | [place] [address] | | + + + + + | Najma Krishnamurthy | ECON | Unknown | | + + + + + | Hector Mack | ECON | [address] | | | | | [place] | | | | | [address] | | + + + + + | Najma Sanches | ECON | Unknown | | + + + + + Care Team Providers + +------+ + | Care Benefit Director Name | Role | Phone | + +------+ + PCP | Unavailable | + +------+ + Encounter Details +--------+ + + + + | Date | Type | Department | Care Team | Description | +--------+ + + + + | 04/14/ | Hospital | [facility] | | | | 1996 | Encounter | MED CTR EMERGENCY | | | | | | CENTER [address] | | | | | | [place] | | | | | | [address] | | | | | | [phone] | | | +--------+ + + + [...]
--- OUTSIDE RECORDS SUMMARY | ~2019-07-26 | XMS | Encounter Summary ---
Demographics + + + | Address | BAD ADDRESS | | | [place] [address] | + + + | Home Phone | | + + + | Preferred Language | Unknown | + + + | Marital Status | | + + + | Catholic Affiliation | 1077 | + + + | Race | Unknown | + + + | Ethnic Group | Unknown | + + + Author + + + | Author | [facility] | | | and [place] | + + + | Organization | [facility] [...] | | | | | [place] [address] | | + + + + + | Najma Krishnamurthy | ECON | Unknown | | + + + + + | Hector Mack | ECON | [address] | | | | | [place] | | | | | [address] | | + + + + + | Najma Sanches | ECON | Unknown | | + + + + + Care Team Providers + +------+ + | Care Postal Service Clerk Name | Role | Phone | + +------+ + PCP | Unavailable | + +------+ + Encounter Details +--------+ + + + + | Date | Type | Department | Care Team | Description | +--------+ + + + + | 11/23/ | Hospital | [facility] | [place] | | | 1996 | Encounter | MED CTR XRAY [address] | [place] [address] | | | | | [place] | [place], [place] | | | | | [place] [address] | [address] | | | | | [phone] | [phone] | | | | | | | [...]
--- OUTSIDE RECORDS SUMMARY | ~2019-07-26 | XMS | Encounter Summary ---
Demographics + + + | Address | [address] | | | [place] [address] | + + + | Home Phone [...] [place] | | | | | [address] | | + + + + + Care Team Providers + +------+ + | Care Market Garden Worker Name | Role | Phone | [...] | Office | Preoperative | 1, [facility] Evidence Technician [address] | Other Specified | | 2007 | Visit | Medicine Clinic at | [address] | Pre-Operative | | | | [facility] 4th Floor [address] | [place] [address] | Examination (Primary | | | | [address] | | Dx) | | | | Mailcode: CH4S | | | | | | [facility] | | | | | | and Healing, | | | | | | Building 1,4th Floor | | | | | | [place], [place] | | | | | | [address] | | | | | | [phone] | | | +--------+---------+ + + + [...] | + + + + + | [facility] DEPARTMENT OF | [address] | [place] [address] | | | PATHOLOGY | [address] | | | + + + + + | [facility] DEPARTMENT OF | [address] | [place] [address] | | | PATHOLOGY | [address] [...] Performed At | + + + | [id number] Estimated GFR = 48 mL/min/1.73 sq m if non- | [facility] | | [id number] Estimated GFR = 59 mL/min/1.73 sq m [...] + + | [facility] | [address] | [place] [address] | | | PATHOLOGY | [address] | | | + + + + + | [facility] DEPARTMENT | [address] | [place] [address] | | | PATHOLOGY | [address] [...] + + + | Please click | [facility] DEPT OF | | on view image for the detailed interpretation from [employer] results. | CARDIOLOGY | | | | + + + + + + + + | Performing | Address | City/State/Zipcode | Phone Number | | Organization | | | | + + + + + | [facility] DEPT OF | [address] | [place], [place] | | | CARDIOLOGY | [address] | [address] | | + + + + + | [facility] DEPT OF | [address] | [place], [place] | | | CARDIOLOGY | [address] | [address] | | + + + + + documented in this encounter Visit Diagnoses + + | Diagnosis | + + | Other specified pre-operative examination - Primary | + + documented in this encounter
--- OUTSIDE RECORDS SUMMARY | ~2019-07-26 | XMS | Encounter Summary ---
Demographics + + + | Address | BAD ADDRESS | | | [place] [address] | + + + | Home Phone | | + + + | Preferred Language | Unknown | + + + | Marital Status | | + + + | Spiritism Affiliation | 1077 | + + + | Race | Unknown | + + + | Ethnic Group | Unknown | + + + Author + + + | Author | [facility] | | | and Byronana | + + + | Organization | [facility] [...] | | | | | [place] [address] | | + + + + + | Najma Krishnamurthy | ECON | Unknown | | + + + + + | Hector Blankenship | ECON | [address] | | | | | [place] | | | | | [address] | | + + + + + | Najma Sanches | ECON | Unknown | | + + + + + Care Team Providers + +------+ + | Care Concrete Buster Operator Name | Role | Phone | [...] + + | 05/18/ | Hospital | [facility] | Oralia Nevarez | Hypokalemia (Primary | | 2018 - | Encounter | HOSPITAL MED SURG | [address] | Dx); Right hand | | | | [address] | [address] [place] | weakness; 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 Weinstein ([facility]) Primary Discharge Dx: Active Hospital Problems [...] has remained stable on repeat labs. 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 Biop sied at [facility] in Jan 2018. Reviewed by [...] of urine. They report living in a [facility] trailer in [place] for the winter. APS report being made, however she is going to a s afe living situation at [facility] in [place]. FEN:(albumin <= 3.2 g/dL) VTE Prophylxis low molecular weight heparin Code Status: Full Code Anticipated Date of Discharge: 05/22/[address] conditions, weather. Anticipated Discharge needs: PT, OT and speech therapy. Post-Hospital Care: Group Home Facility in [facility]. She has been accepted by H[facility]. [...] pH, Urine 5.5 5.0 - 8.0 Specific [place] 1.025 1.005 - 1.030 Protein, Urine 30 [...] Ct Angiogram Head Neck Result Date: 05/20/2018 [place] [address] NAME: GERMAINE BARBOUR DATE: 05/20/2018 : 0 1945 PT GENDER: F ROOM: IN Physician: ORALIA NEVAREZ PID3: [id number] CC TO: MR#: PROCEDURE: CTA BRAIN AND [...] thyroid gland. 1 :03 PM at workstation [id number] Pending study results on DC: Unresulted Labs [...] Family daughter Najma. 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 See SNF transfer note for details. Follow-up Information [facility] director medical. Discharge Instructions Please continue: - physical [...] this encounter Progress Notes Trinidad Miranda, Health Feather Shaper - 05/21/2018 2:43 PM PSTTransport arrangements madrigal ve been finalized. Pharmacy for scripts have been finalized. Family has been notified. Queenie ctronically signed by Trinidad Miranda, Health Feather Shaper at 05/21/2018 2:44 PM PSTOralia Bhagat MD [...] on trunk, back, palms. Biop sied at [facility] in Jan 2018. Reviewed by dermatopathologist. Differential based on path findings is Woodmere's disease, Ninfa-Ninfa disease, Darier disease and eczematous [...] therapy. Post-Hospital Care: Group Home Facility in [facility]. She has been accepted by Hanny Killian. [...] Ct Angiogram Head Neck Result Date: 05/20/[address] [address] NAME: GERMAINE BARBOUR DATE: 05/20/2018 : 0 1945 PT GENDER: F ROOM: IN Physician: ORALIA NEVAREZ PID3: [id number] CC TO: MR#: PROCEDURE: CTA BRAIN AND [...] thyroid gland. 1 :03 PM at workstation [id number] Documentation assistance provided by Jolie Pimentel, medical student. I repeated all eleme nts of the history and physical and have edited all parts of the note to reflect my evaluati on. Electronically signed: Oralia Nevarez MD 05/21/2018 13:18 DATE OF SERVICE: 05/21/2018 rinidad Miranda, Health Feather Shaper - 05/20/2018 3:[facility] [place] [place] [facility] Germaine. Working on transport options. [facility] transport is working on transport for Friday by 11. rinidad Miranda, Health Unit Coordin ator - 05/20/2018 10:55 AM PSTSpoke with Najma Xiong-daughter. She has made preliminary arr angements for Germaine to be placed at [facility] in [place]. Will make phone contact with them today. Faxed referral notes to sleep tech for review. El ectronically signed by Trinidad Miranda Health Feather Shaper at 05/20/2018 2:26 PM PSTAlexandria castrejon, Oralia [...] on trunk, back, palms. biop sied at [facility] in Jan 2018. Reviewed by dermatopathologist. Differential based on path findings is Woodmere's disease, Ninfa-Ninfa disease, Darier disease and eczematous [...] support. Post-Hospital Care: Group Home Facility vs [facility] depending on improvement in cognitive i mpairment. Subjective Germaine pulled out IV yesterday and it was left out and ceftriaxone given IM. Daughter Elana vu who lives in [place] has called and is interested in bringing Germaine closer to her. July ischarge to SNF near [facility]. Germaine has no complaints. Right [...] Ct Head Wo Contrast Result Date: 05/18/2018 [place] [address] NAME: GERMAINE BARBOUR Jesus DATE: 05/18/2018 : 0 1945 PT GENDER: F ROOM: ER Physician: ORALIA NEVAREZ PID3: [id number] CC TO: MR#: This report includes an [...] evaluation with MRI if indicated. at workstation [employer] ADDENDUM #1 Add communi cation: Communication: Relayed findings to Dr. Nevarez on 05/18/18 at 1977. Gave her contact info for Dr. Nieves./earle Transcribed by: EARLE at 05/18/2018 5:37 PM at workstation Proven[facility] Xr Chest Ap Portable Result Date: 05/18/[address] [address] NAME: ANTONIETTA BLANKENSHIP GERMAINE Jesus DATE: 05/18/2018 : 0 1945 PT GENDER: F ROOM: ER Physician: ORALIA NEVAREZ PID3: [id number] CC TO: MR#: PROCEDURE: AP PORTABLE CHEST [...] Vas Carotid Duplex Bilateral Result Date: 05/19/[address] [address] NAME: GERMAINE BARBOUR DATE: 05/19/2018 : 0 1945 PT GENDER: F ROOM: IN Physician: ORALIA NEVAREZ PID3: [id number] CC TO: MR#: PROCEDURE: ULTRASOUND BILATERAL CAROTID [...] Right 3 + Vw Result Date: 05/18/[address] [address] NAME: GERMAINE BARBOUR DATE: 05/18/2018 : 0 1945 PT GENDER: F ROOM: ER Physician: ORALIA NEVAREZ PID3: [id number] CC TO: MR#: PROCEDURE: RIGHT HAND - [...] calcifications and sof t tissue swelling. at [employer] [facility]-[id number] Electronically signed: Oralia Nevarez MD 05/20/2018 10:37 [...] on trunk, back, palms. biop sied at [facility] in Jan 2018. Reviewed by dermatopathologist. Differential based on path findings is Woodmere's disease, Ninfa-Ninfa disease, Darier disease and eczematous process. - plan to consult [facility] derm by phone prior to discharge. [...] and Trey araujo will take shuttle to [place] to take care of their dog. Review [...] in right hand but not light touch. [place] ed to person but not place or [...] pH, Urine 5.5 5.0 - 8.0 Specific [place] 1.025 1.005 - 1.030 Protein, Urine 30 [...] Ct Head Wo Contrast Result Date: 05/18/2018 [place] [address] NAME: GERMAINE BARBOUR DATE: 05/18/2018 : 0 1945 PT GENDER: F ROOM: ER Physician: ORALIA NEVAREZ PID3: [id number] CC TO: MR#: This report includes an [...] evaluation with MRI if indicated. at workstation [id number] ADDENDUM #1 Add communi cation: Communication: Relayed findings to Dr. Nevarez on 05/18/18 at 9872. Gave her contact info for Dr. Nieves./hs Transcribed by: HS at 05/18/2018 5:37 PM at workstation [id number] Xr Chest Ap Portable Result Date: 05/18/[address] [address] NAME: GERMAINE BARBOUR DATE: 05/18/2018 : 0 1945 PT GENDER: F ROOM: ER Physician: ORALIA NEVAREZ PID3: [id number] CC TO: MR#: PROCEDURE: AP PORTABLE CHEST [...] evidence of acute cardiopulmonary disease. at workstation Advanced [id number] Xr Hand Right 3 + Vw Result Date: 05/18/[address] [address] NAME: GERMAINE BARBOUR DATE: 05/18/2018 : 0 1945 PT GENDER: F ROOM: ER Physician: ORALIA NEVAREZ PID3: [id number] CC TO: MR#: PROCEDURE: RIGHT HAND - [...] calcifications and sof t tissue swelling. at [employer] [facility]-[id number] Electronically signed: Oralia Nevarez MD 05/19/2018 12:47 [...] D?MRN: | | | | | | [id number] | | | [id number] | | | riteri | | | [...] | | | St. | | | [facility] | | | y | | | [...] | | | St. | | | [facility] | | | y | | | [...] | | | St. | | | [facility] | | | y H. | | [...] | | | St. | | | [facility] | | | y H. | | [...] | | | St. | | | [facility] | | | y H. | | [...] | | | St. | | | [facility] | | | y H. | | [...] | | | [place] | | | [facility], | | | [facility] - | | | info@c | | [...] [facility] | [address] | [place], [place] | [phone] | | HOSPITAL LABORATORY | | [address] | | + + + + + [...] + + + + + | [facility] | [address] | [place], [place] | [phone] | | HOSPITAL LABORATORY | | [address] | | + + + + + [...] 82 | 70 - 110 mg/dL | [facility] | | | | | | COMMUNITY [...] | Creatinine | 0.76 | >0.60-<1.30 | [facility] | | | | | mg/dL | COMMUNITY | | | | | | HOSPITAL | | | | | | LABORATORY | | + + + + + + | eGFR if not | >60Comment: GLOMERULAR | >=60 | [facility] | | | | FILTRATION | mL/min/1.73m2 | [facility] | | | [place] | RATE,ESTIMATED | | HOSPITAL | | | | mL/min/1.67f4Mbrp than | | LABORATORY | | | [...] 7.8 (L) | 8.3 - 10.0 | [facility] | | | | | mg/dL | [...] + + + + + | [facility] | [address] | [place], [place] | [phone] | | HOSPITAL LABORATORY | | [address] | | + + + + + CT Angiogram Head Neck (05/20/2018 12:07 PM PST) + + | Specimen | + + | | + + + + + | Narrative | Performed At | + + + | [address] | [facility] | | [place], [place] [address] | | | NAME: GERMAINE BARBOUR DATE: 05/20/2018 : | | | 1945 PT GENDER: F ROOM: IN Physician: ORALIA | | | ROQUE PID3: [id number] CC TO: MR#: | | | PROCEDURE: [...] | | 05/20/2018 1:03 PM at workstation [id number] | | + + + + + | Procedure Note | + + | Javier Gay Results In - 05/20/2018 1:15 PM [facility] | | [address] | | [place], [place] [address] | | | | | | NAME: GERMAINE BARBOUR DATE: 05/20/2018 | | : 1945 PT GENDER: F ROOM: IN | | Physician: ORALIA NEVAREZ PID3: [id number] | | CC TO: MR#: | | [...] Testing Performed at: [place] [facility] CLIA: [id number] - [address] | REFERENCE LAB | | [place] [address] | [facility] | + + + + + + + + | Performing | Address | City/State/Zipcode | Phone Number | | Organization | | | | + + + + + | REFERENCE LAB | [address] | [place] | [phone] | | [facility] | | [address] | | + + + + + | REFERENCE LAB | [address] | [place] | [phone] | | [facility] | | [address] | | + + + + + [...] + + + + + | [facility] | [address] | [place], [place] | [phone] | | HOSPITAL LABORATORY | | [address] | | + + + + + [...] + + + + + | [facility] | [address] | [place], [place] | [phone] | | HOSPITAL LABORATORY | | [address] | | + + + + + Magnesium (05/20/2018 6:50 AM PST) + +-------+ + + + | Component | Value | Ref Range | Performed | Pathologist | | | | | At | Signature | + +-------+ + + + | Magnesium | 1.9 | 1.8 - 2.4 mg/dL | [facility] | | | | | | [...] + + + + + | [facility] | [address] | [place], [place] | [phone] | | HOSPITAL LABORATORY | | [address] | | + + + + + [...] 85 | 70 - 110 mg/dL | [facility] | | | | [...] | | | FILTRATION | mL/min/1.73m2 | [facility] | | | [place] | RATE,ESTIMATED | | HOSPITAL | | | | mL/min/1.94u8Iqhg than | | LABORATORY | | | [...] 7.7 (L) | 8.3 - 10.0 | [facility] | | | | | mg/dL | COMMUNITY | | | | | | HOSPITAL | | | | | | LABORATORY | | + + + + + + | BUN/Creatin | 17.1 | 7.0 - 24.0 | [facility] | | | ine Ratio | | [...] | + + + + + | [facility] | [address] | [place], [place] | [phone] | | HOSPITAL LABORATORY | | [address] | | + + + + + CBC no Differential (05/20/2018 6:50 AM PST) + + + + + + | Component | Value | Ref Range | Performed | Pathologist | | | | | At | Signature | + + + + + + | WBC | 6.2 | >4.5-<11.0 K/uL | [facility] | | | | | [...] | MPV | 11.1 | fL | [facility] | | | | | | [facility] | | | | | | HOSPITAL | | | | | | LABORATORY | | + + + + + + + + | Specimen | + + | Blood | + + + + + + + | Performing | Address | City/State/Zipcode | Phone Number | | Organization | | | | + + + + + | [facility] | [address] | [place], [place] | [phone] | | HOSPITAL LABORATORY | | [address] | | + + + + + VAS Carotid Duplex Bilateral (05/19/2018 8:37 AM PST) + + | Specimen | + + | | + + + + + | Narrative | Performed At | + + + | [address] | [facility] | | [place], [place] [address] | | | NAME: GERMAINE BARBOUR DATE: 05/19/2018 : | | | 1945 PT GENDER: F ROOM: IN Physician: ORALIA | | | ROQUE PID3: [id number] CC TO: MR#: | | | PROCEDURE: [...] | | 05/19/2018 3:20 PM at workstation [id number] | | + + + + + | Procedure Note | + + | Victor Hugo, Rad Results In - 05/19/2018 3:50 PM PST [facility] | | [address] | | [place], [place] [address] | | | | | | NAME: ANTONIETTA BLANKENSHIPGERMAINE DATE: 05/19/2018 | | : 1945 PT GENDER: F ROOM: IN | | Physician: ORALIA NEVAREZ PID3: [id number] | | CC TO: MR#: | | [...] | | | at | | workstation [id number] | + + + +---------+ + + | Performing | Address | City/State/[facility] Hospital[facility] | Phone Number | | Organization | [...] + + + + + | [facility] | [address] | [place], [place] | [phone] | | HOSPITAL LABORATORY | | [address] | | + + + + + [...] 18 | 5 - 26 mg/dL | [facility] | | | | | | COMMUNITY | | | | | | HOSPITAL | | | | | | LABORATORY | | + + + + + + | Creatinine | 0.76 | >0.60-<1.30 | [facility] | | | | | mg/dL | COMMUNITY | | | | | | HOSPITAL | | | | | | LABORATORY | | + + + + + + | eGFR if not | >60Comment: GLOMERULAR | >=60 | [facility] | | | | FILTRATION | mL/min/1.73m2 | COMMUNITY | | | [place] | RATE,ESTIMATED | | HOSPITAL | | | | mL/min/1.50i6Ejua than | | LABORATORY | | | [...] + + + + + | [facility] | [address] | [place], [place] | [phone] | | HOSPITAL LABORATORY | | [address] | | + + + + + Magnesium (05/19/2018 4:50 AM PST) + +-------+ + + + | Component | Value | Ref Range | Performed | Pathologist | | | | | At | Signature | + +-------+ + + + | Magnesium | 1.8 | 1.8 - 2.4 mg/dL | [facility] | | | | | | COMMUNITY [...] + + + + + | [facility] | [address] | [place], [place] | [phone] | | HOSPITAL LABORATORY | | [address] | | + + + + + [...] | + + + + + | [facility] | [address] | [place], [place] | [phone] | | HOSPITAL LABORATORY | | [address] | | + + + + + XR Hand Right 3 + Vw (05/18/2018 4:55 PM PST) + + | Specimen | + + | | + + + + + | Narrative | Performed At | + + + | [address] | [facility] | | [place], [place] [address] | | | NAME: GERMAINE BARBOUR DATE: 05/18/2018 : | | | 1945 PT GENDER: F ROOM: ER Physician: ORALIA | | | ROQUE PID3: [id number] CC TO: MR#: | | | PROCEDURE: [...] | | at | | | workstation [facility]-[id number] | | + + + + + | Procedure Note | + + | Javier Gay Results In - 05/18/2018 5:05 PM [facility] | | [address] | | [place], [place] [address] | | | | | | NAME: ANTONIETTA BLANKENSHIPGERMAINE DATE: 05/18/2018 | | : 1945 PT GENDER: F ROOM: ER | | Physician: ORALIA NEVAREZ PID3: [id number] | | CC TO: MR#: | | [...] | | | at workstation | | [facility]-[id number] | | | | | | | [...] Performed At | + + + | [address] | [facility] | | [place], [place] [address] | | | NAME: ANTONIETTA BLANKENSHIP GERMAINE Jesus DATE: 05/18/2018 : | | | 1945 PT GENDER: F ROOM: ER Physician: ORALIA | | | ROQUE PID3: [id number] CC TO: MR#: | | | This [...] | with MRI if indicated. at workstation [id number] ADDENDUM #1 | | | Add communication: Communication: Relayed findings to | | | Roque on 05/18/18 at 1736. Gave her contact info for Dr. Nieves./ | | | Transcribed by: at 05/18/2018 5:37 PM at workstation [id number] | | + + + + + | Procedure Note | + + | Victor Hugo, Rad Results In - 05/18/2018 6:05 PM [facility] | | [address] [facility] | | [place], [place] [address] | | | | | | NAME: GERMAINE BARBOUR DATE: 05/18/2018 | | : 1945 PT GENDER: F ROOM: ER | | Physician: ORALIA NEVAREZ PID3: [id number] | | CC TO: MR#: | | [...] | | | at workstation | | [facility]-[id number] | | | | ADDENDUM #1 | | | | | | Add communication: | | Communication: Relayed findings to Dr. Nevarez on 05/18/18 at 1736. Gave her | | contact info for Dr. Nieves./hs | | | | Transcribed by: HS at 05/18/2018 5:37 PM | | | | at workstation | | [facility]-[id number] | + + + +---------+ + + [...] + + + + + | [facility] | [address] | [place], [place] | [phone] | | HOSPITAL LABORATORY | | [address] | | + + + + + [...] - 1.030 | [facility] | | | [place], | | | COMMUNITY | | | [...] + + + + + | [facility] | [address] | [place], [place] | [phone] | | HOSPITAL LABORATORY | | [address] | | + + + + + [...] | + + + + + | [facility] | [address] | [place], [place] | [phone] | | HOSPITAL LABORATORY | | [address] | | + + + + + XR Chest AP Portable (05/18/2018 3:34 PM PST) + + | Specimen | + + | | + + + + + | Narrative | Performed At | + + + | [address] | [facility] | | [place], [place] [address] | | | NAME: ANTONIETTA BLANKENSHIPGERMAINE DATE: 05/18/2018 : | | | 1945 PT GENDER: F ROOM: ER Physician: ORALIA | | | ROQUE PID3: [id number] CC TO: MR#: | | | PROCEDURE: [...] evidence of acute cardiopulmonary disease. at workstation [id number] | | | | | + + + + + | Procedure Note | + + | Victor Hugo, Rad Results In - 05/18/2018 3:50 PM PST [facility] | | [address] [facility] | | [place], [place] [address] | | | | | | NAME: ANTONIETTA BLANKENSHIP GERMAINE Jesus DATE: 05/18/2018 | | : 1945 PT GENDER: F ROOM: ER | | Physician: ORALIA NEVAREZ PID3: [id number] | | CC TO: MR#: | | [...] | | | at | | workstation [id number] | | | | | | | [...] + + + + + | [facility] | [address] | [place], [place] | [phone] | | HOSPITAL LABORATORY | | [address] | | + + + + + Troponin I (05/18/2018 3:11 PM PST) + +-------+ + + + | Component | Value | Ref Range | Performed | Pathologist | | | | | At | Signature | + +-------+ + + + | Troponin I | 0.030 | 0.000 - 0.090 | [facility] | | | | | ng/mL [...] hours are at higher risk of or [place] at 48 | HOSPITAL | | hours [...] + + + + + | [facility] | [address] | [place], [place] | [phone] | | HOSPITAL LABORATORY | | [address] | | + + + + + B Type Natriuretic Peptide (05/18/2018 3:11 PM PST) + + + + + + | Component | Value | Ref Range | Performed | Pathologist | | | | | At | Signature | + + + + + + | NT-proBNP | 1,571 (H) | 0 - 125 pg/mL | [facility] | | | | | | [...] + + + + + | [facility] | [address] | [place], [place] | [phone] | | HOSPITAL LABORATORY | | [address] | | + + + + + [...] + + + + + | [facility] | [address] | [place], [place] | [phone] | | HOSPITAL LABORATORY | | [address] | | + + + + + Lipase (05/18/2018 3:11 PM PST) + +-------+ + + + | Component | Value | Ref Range | Performed | Pathologist | | | | | At | Signature | + +-------+ + + + | Lipase | 98 | 73 - 393 U/L | [facility] | | | | | | [...] + + + + + | [facility] | [address] | [place], [place] | [phone] | | HOSPITAL LABORATORY | | [address] | | + + + + + [...] 21 | 5 - 26 mg/dL | [facility] | | | | | | COMMUNITY | | | | | | HOSPITAL | | | | | | LABORATORY | | + + + + + + | Creatinine | 0.98 | >0.60-<1.30 | [facility] | | | | | mg/dL | [facility] | | | | | | HOSPITAL | | | | | | LABORATORY | | + + + + + + | eGFR if not | 56 (L)Comment: | >=60 | [facility] | | | | GLOMERULAR FILTRATION | mL/min/1.73m2 | [facility] | | | [place] | RATE,ESTIMATED | | HOSPITAL | | | | mL/min/1.16a9Ispf than | | LABORATORY | | | [...] 8.2 (L) | 8.3 - 10.0 | [facility] | | | | | mg/dL | [facility] | | | | | | [facility]OSPITAL [...] + + + + + | [facility] | [address] | [place], [place] | [phone] | | HOSPITAL LABORATORY | | [address] | | + + + + + [...] + + + + + | [facility] | [address] | [place], [place] | [phone] | | HOSPITAL LABORATORY | | [address] | | + + + + + [...] | | | | First dose on Fri05/18/18 at | | AM PST | | [...] | | | | | dose on Fri05/21/18 at 2100, [place] | | AM PST [...]
--- OUTSIDE RECORDS SUMMARY | ~2019-07-26 | XMS | Encounter Summary ---
Demographics + + + | Address | [address] | | | [place] [address] | + + + | Home Phone [...] + + + | Author | [facility] | + + + | Organization | [facility] | + + + | Address | Unknown | + + + | Phone | Unavailable | + + + Support + + + + + | Name | Relationship | Address | Phone | + + + + + | Hector Mack | ECON | [address] | | | | | [place] | | | | | [address] | | + + + + + Care Team Providers + +------+ + | Care Edge Inker Heels Name | Role | Phone | + [...] [facility] | | | | | | [facility] | | | | | | and [place], | | | | | | [address] | | | | | | Floor [place], [place] | | | | | | [address] | | | | | | [phone] | | | +--------+---------+ + + + [...]
--- OUTSIDE RECORDS SUMMARY | ~2019-07-26 | XMS | Encounter Summary ---
Demographics + + + | Address | [address] | | | [place] [address] | + + + | Home Phone [...] + | Author | [facility] | | | and Byronana | + + + | Organization | [facility] | | | and [...] | | | | | [place] [address] | | + + + + + | Najma Krishnamurthy | ECON | Unknown | | + + + + + | Hector Mack | ECON | [address] | | | | | [place] | | | | | [address] | | + + + + + | Najma Sanches | ECON | Unknown | | + + + + + Care Team Providers + +------+ + | Care Fish Farm Laborer Name | Role | Phone | + +------+ + PCP | Unavailable | + +------+ + Encounter Details +--------+ + + + + | Date | Type | Department | Care Team | Description | +--------+ + + + + | 11/12/ | Hospital | [facility] | Lalo Londono MD | | | 2004 | Encounter | MED CTR GENERIC OP | [address] | | | | | CONV DEPT [address] | [address] | | | | | [place], | [address] | | | | | [place] [address] | | | | | | [phone] | | | +--------+ + + + [...]
--- OUTSIDE RECORDS SUMMARY | ~2019-07-26 | XMS | Encounter Summary ---
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 [facility] [address] | FAB[address] Figue[address]o [address] | (Primary Dx); | | | | [facility] | [facility], | Encounter for | | | | for Health and | [place] [address] | Long-Term (Current) | | | | Healing Building 1, | [phone] | Use of Other | | | | 16th Floor | | Medications | | | | [place], [place] | | | | | | [address] | | | | | | [phone] | | | +--------+---------+ + + + [...] in 06/06 --s/p CABG in 2000 in [facility] --s/p cholecystectomy 35 years ago --s/p appy [...] month Julia Buckley PA-C Department of Dermatology 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
--- OUTSIDE RECORDS SUMMARY | ~2019-07-26 | XMS | Encounter Summary ---
Demographics + + + | Address | [address] | | | [place] [address] | + + + | Home Phone [...] [place] | | | | | [address] | | + + + + + Care Team Providers + +------+ + | Care Foreign Policy Officer Name | Role | Phone | + +------+ + | Tuan Chan MD | PCP | | + +------+ + Encounter Details +--------+ + + + + | Date | Type | Department | Care Team | Description | +--------+ + + + + | 02/05/ | Respiratory | | Other, Faculty | | | 2005 | Therapy | | [phone] | | +--------+ + + + + [...] + + + | RESPIRATORY | Pt's machine rough rounder and | | | | | CARE [...] | | | | | Sirisha Vigil SILK SPOOLER | | | | + + + [...] [facility] | [address] | [place], [place] | | | DIAGNOSTICS - | [address] | [address] | | | PULMONARY FUNCTION | | | | + + + + + documented in this encounter Visit Diagnoses Not on filedocumented in this encounter"
--- OUTSIDE RECORDS SUMMARY | ~2019-07-26 | XMS | Encounter Summary ---
Demographics + + + | Address | [address] | | | [place] [address] | + + + | Home Phone [...] [place] | | | | | [address] | | + + + + + Care Team Providers + +------+ + | Care Licensed Psychologist Director Name | Role | Phone | [...] Pranay | | | | | | [address] | [address] | | | | | | [address] | [address] | | | | | | [address] | [place], [place] | | | | | | [place], [place] | [address] | | | | | | [address] | | | | | | | Phone: | | | | | | | [phone] | | | | | | | Fax: | | | | | | | [phone] | | +--------+--------+ + + + + Encounter Details +--------+---------+ + + + | Date | Type | Department | Care Team | Description | +--------+---------+ + + + | 11/20/ | Office | Cardiology - | Pranay Melendez MD | Dysmetabolic | | 2005 | Visit | General [address] | | Syndrome X; CAD | | | | [address] | | (Coronary Artery | | | | Mailcode: [id number] | | Disease); Sleep | | | | [facility] | | Apnea; Gout; DM Circ | | | | [address] [place], | | Dis Type [place], | | | | [place] [address] | | Uncontrolled ([facility]); | | | | [phone] | | Dyslipidemia | +--------+---------+ + + [...] Notes Pranay Melendez - 11/21/2005 9:02 AM [facility] is a morbidly obese woman with [...] risk will be manageable. 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 [...] DEPARTMENT OF | [address] | [place] [address] | | | PATHOLOGY | [address] | | | + + + + + | [facility] | [address] | [place] [address] | | | PATHOLOGY | [address] | | | + + + + + documented in this encounter Visit Diagnoses + + | Diagnosis | + + | Dysmetabolic syndrome X Dysmetabolic Syndrome X | + + | CAD (coronary artery disease) Coronary atherosclerosis of unspecified type of vessel, | | [place] or graft | + + | Sleep [...]
--- OUTSIDE RECORDS SUMMARY | ~2019-07-26 | XMS | Encounter Summary ---
Demographics + + + | Address | [address] [place] [address] | | | [place] [address] | + + + | Home Phone [...] [place] | | | | | [address] | | + + + + + Care Team Providers + +------+ + | Care Linux Administrator Name | Role | Phone | [...] Rd | | | | | | [place], [place] | | | | | | [address] | | | +--------+ + + + [...]
--- OUTSIDE RECORDS SUMMARY | ~2019-07-26 | XMS | Encounter Summary ---
Demographics + + + | Address | BAD ADDRESS | | | [place] [address] | + + + | Home Phone [...] | [facility] | | | and [place] | + + + | Organization | [facility] | | | and [place] | + + + | Address | Unknown | + + + | Phone | Unavailable | + + + Support + + + + + | Name | Relationship | Address | Phone | + + + + + | Hector Mack | ECON | [address] | | | | | [place] [address] | | + + + + + | Najma Krishnamurthy | ECON | Unknown | | + + + + + | Hector Mack | ECON | [address] | | | | | [place] | | | | | [address] | | + + + + + | Najma Sanches | ECON | Unknown | | + + + + + Care Team Providers + +------+ + | Care Director Database Name | Role | Phone | + +------+ + PCP | Unavailable | + +------+ + Encounter Details +--------+ + + + + | Date | Type | Department | Care Team | Description | +--------+ + + + + | 02/25/ | Hospital | [facility] | Colton Long, | | | 2000 | Encounter | MED CTR LAB[facility]ATORY | [address] | | | | | [address] | [place] | | | | | [place] | [address] | | | | | [address] | | | | | | [phone] | | | +--------+ + + + [...]
--- OUTSIDE RECORDS SUMMARY | ~2019-07-26 | XMS | Encounter Summary ---
Demographics + + + | Address | [address] | | | [place] [address] | + + + | Home Phone [...] [place] | | | | | [address] | | + + + + + Care Team Providers + +------+ + | Care Home Health Physical Therapist Name | Role | Phone | [...] 2007 | Registratio | [address] | [address] | | | | n | Eugenio Mailcode: [id number] | [place], [place] | | | | | [place], [place] | [address] | | | | | [address] | [phone] | | | | | [phone] | | | +--------+ + + + [...]
--- OUTSIDE RECORDS SUMMARY | ~2019-07-26 | XMS | Encounter Summary ---
Demographics + + + | Address | [address] | | | [place] [address] | + + + | Home Phone [...] [place] | | | | | [address] | | + + + + + Care Team Providers + +------+ + | Care Outside Solar Sales Consultant Name | Role | Phone | [...] | | | | | | | [place], [place] | | | | | | | [address] | | | | | | | Phone: | | | | | | | [phone] | | | | | | | Fax: | | | | | | | [phone] | +--------+--------+ + + + + Encounter Details +--------+ + + + + | Date | Type | Department | Care Team | Description | +--------+ + + + + | 05/10/ | Hospital | [facility] [address] | Aysha Blackburn | | | 2008 - | Encounter | [address] Andre Crow MD | | | | | [id number]/[id number] Joey | | | | 05/11/ | | An [place], | | | | 2008 | | [place] [address] | | | +--------+ + + + [...] [facility] PAC[facility] 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 If you have any of [...] Aysha Blackburn MD, 1 week, please call [phone] for appointment Follow Up Tests: (Tests at [facility] must be entered into Epic) None [...] Discharged Via: Wheelchair Mode of Transportation: Other: [email or web address] Accompanied by: Staff Transport Company Name: (when applicable) [email or web address] Phone #: Discharge Nurse: PASQUALE MEYERS RN [...] week for drain removal Lizz Brittany MS[address] [place] [address] Kassandra Herman - 05/01 12:00 AM Emily-Germaine brownlee [id number] [facility] REC NUMBER: [id number] NAME : Germaine Heard DATE : 1945 Admit Date: 05/10/2008 Discharge Date: 05/11/2008 PHYSICIAN'S REQUEST FOR HOME HEALTH SERVICES Relevant History: Location to receive services if other than home: Allergies: Height: Weight: Ordering Physician: [address] [place] [address] Physician to follow for ongoing home health orders: PCP Name: PCP Phone: Discharge Need(s): 1. Transportation Discharge Vendor: Medicaid - [place] Discharge Suggested First Visit/Delivery Date: Discharge Service/Equipment: Incident Response Specialist: Oralia Wang documented in this encounter Plan [...] + + + + | PRODUCT | [id number] | | [facility] | | | UNIT [...] [facility] | [address] | [place] [address] | | | PATHOLOGY | [address] | | | + + + + + | [facility] | [address] | [place] [address] | | | PATHOLOGY | [address] [...] + + + + | PRODUCT | [id number] | | [facility] | | | UNIT [...] | + + + + + | [facility] DEPARTMENT OF | [address] | [place] [address] | | | PATHOLOGY | [address] | | | + + + + + | [facility] DEPARTMENT OF | [address] | [place] [address] | | | PATHOLOGY | [address] | | | + + + + + OPERATION RECORD (05/10/2008 12:00 AM PST) + + + | Narrative | Performed At | + + + | [id number] | | | [id number] | | | [id number] ARETHA RAE [id number] | | | Date: 05/10/2008 Attending Surgeon: | | | Aysha Blackburn MD Reactor Fueling Supervisor(s): | | | Lang Pisano M.D. Preoperative [...] hemostasis was ensured. We then placed two 19-Fijian Ruel | | | drains in the [...] | | | MD LORIE Arce / [id number] / [id number] / [id number] / D: | | | 05/12/2008 | | + + + + + | Procedure Note | + + | Aysha Blackburn MD - 05/10/2008 12:00 AM [facility] [id number] | | [id number] [facility]AE | | [id number] Date: 05/10/2008 Attending Surgeon: | | Aysha Blackburn MD Reactor Fueling Supervisor(s): Lang Pisano M.D. | | Preoperative Diagnosis(es):Panniculitis. [...] ensured. We then | | placed two 19-Fijian Ruel drains in the subcutaneous plane. The [...] Crow | | MD LORIE Blackburn / [id number] / [id number] / [id number] / T: 05/12/2008 | | | | [...] w as ensured. We then placed two 19-Fijian Ruel drains in the subcutaneous plane. The [...] | | | |LORIE / PASCUAL | |[id number] / [id number] / [id number] / | | | | | | [...] + +---------+ +------+--------+---+ | morphine 5 mg/mL RN STARS infusion | New Bag | 05/10/19 | [...]
--- OUTSIDE RECORDS SUMMARY | ~2019-07-26 | XMS | Encounter Summary ---
Demographics + + + | Address | BAD ADDRESS | | | [place] [address] | + + + | Home Phone [...] | Author | [facility] | | | and [place] | + + + | Organization | [facility] | | | and [...] | | | | | [place] [address] | | + + + + + | Najma Krishnamurthy | ECON | Unknown | | + + + + + | Hector Mack | ECON | [address] | | | | | [place] | | | | | [address] | | + + + + + | Najma Sanches | ECON | Unknown | | + + + + + Care Team Providers + +------+ + | Care Field Education Coordinator Name | Role | Phone | + +------+ + PCP | Unavailable | + +------+ + Encounter Details +--------+ + + + + | Date | Type | Department | Care Team | Description | +--------+ + + + + | 07/23/ | [facility] | [facility] | Duarte Moon MD | | | 2012 | Encounter | [facility] | [address] | | | | | MEDICAL [facility] | [facility], [place] | | | | | [facility] [facility], | [address] | | | | | [place] [address] | | | | | | [phone] | | | +--------+ + + + [...]
--- OUTSIDE RECORDS SUMMARY | ~2019-07-26 | XMS | Encounter Summary ---
Demographics + + + | Address | BAD ADDRESS | | | [place] [address] | + + + | Home Phone [...] | Author | [facility] | | | and [place] | + + + | Organization | [facility] | [...] | | | | | [place] [address] | | + + + + + | Najma Krishnamurthy | ECON | Unknown | | + + + + + | Hector Mack | ECON | [address] | | | | | [place] | | | | | [address] | | + + + + + | Najma Sanches | ECON | Unknown | | + + + + + Care Team Providers + +------+ + | Care Retread Supervisor Name | Role | Phone | + +------+ + PCP | Unavailable | + +------+ + Encounter Details +--------+ + + + + | Date | Type | Department | Care Team | Description | +--------+ + + + + | 04/27/ | Hospital | [facility] | Trevor Hunter | | | 2000 - | Encounter | [facility] | A Jesus Bartholomew | | | | | CARDIAC TELEMETRY | [address] | | | 05/15/ | | [address] | [address] [place], [place] | | | 2000 | | [place], [place] | [id number] | | | | | [address] | | | | | | [phone] | | | +--------+ + + + [...]
--- OUTSIDE RECORDS SUMMARY | ~2019-07-26 | XMS | Encounter Summary ---
Demographics + + + | Address | [address] [place] [address] | | | [place] [address] | + + + | Home Phone [...] [place] | | | | | [address] | | + + + + + Care Team Providers + +------+ + | Care Personal Service Representative Name | Role | Phone [...] [address] | | | | | | [facility] | | | | | | and Healing, | | | | | | Building [address] | | | | | | [place], [place] | | | | | | [address] | | | | | | [phone] | | | +--------+------+ + + + [...] + + documented in this encounter Results [place] - BASIC METABOLIC SET (03/11/2011 5:13 PM [...] + + + | Test performed by: [facility] | [facility] | | Outpatient Lab CH[address] [place], [place] [address] | DEPARTMENT OF | | | PATHOLOGY | + + + + + + + + | Performing | Address | City/State/Zipcode | Phone Number | | Organization | | | | + + + + + | [facility] | [address] | [place] [address] | | | PATHOLOGY | [address] [...] + + + | Test performed by: [facility] | [facility] | | Outpatient Lab CH3L [address] [place], [place] [address] | DEPARTMENT OF | | Sent to Core Lab. | PATHOLOGY | + + + + + + + + | Performing | Address | City/State/Zipcode | Phone Number | | Organization | | | | + + + + + | [facility] DEPARTMENT OF | [address] | [place] [address] | | | PATHOLOGY | [address] | | | + + + + + documented in this encounter Visit Diagnoses + + | Diagnosis | + + | Kidney stone Calculus of kidney | + + documented in this encounter"
--- OUTSIDE RECORDS SUMMARY | ~2019-07-26 | XMS | Encounter Summary ---
Demographics + + + | Address | [address] | | | [place] [address] | + + + | Home Phone [...] [place] | | | | | [address] | | + + + + + Care Team Providers + +------+ + | Care Green Pipefitter Name | Role | Phone | + [...] 2007 | Activity | [address] | [address] | | | | | [place] Mailcode: [id number] | [place], [place] | | | | | [place], [place] | [address] | | | | | [address] | [phone] | | | | | [phone] | | | +--------+ + + + [...]
--- OUTSIDE RECORDS SUMMARY | ~2019-07-26 | XMS | Encounter Summary ---
Demographics + + + | Address | BAD ADDRESS | | | [place] [address] | + + + | Home Phone [...] | [facility] | | | and [place] | + + + | Organization | [facility] [...] | | | | | [place] [address] | | + + + + + | Najma Krishnamurthy | ECON | Unknown | | + + + + + | Hector Mack | ECON | [address] | | | | | [place] | | | | | [address] | | + + + + + | Najma Sanches | ECON | Unknown | | + + + + + Care Team Providers + +------+ + | Care Director Of Infection Prevention Name | Role | Phone | + +------+ + PCP | Unavailable | + +------+ + Encounter Details +--------+ + + + + | Date | Type | Department | Care Team | Description | +--------+ + + + + | 07/15/ | Hospital | [facility] | Rina Diaz MD | | | 2003 - | Encounter | [facility] | [address] | | | | | INTENSIVE CARE UNIT | [place] [address] | | | 07/16/ | | [address] | [phone] | | | 2003 | | [place], [place] | | | | | | [address] | | | | | | [phone] | | | +--------+ + + + [...]
--- OUTSIDE RECORDS SUMMARY | ~2019-07-26 | XMS | Encounter Summary ---
Demographics + + + | Address | BAD ADDRESS | | | [place] [address] | + + + | Home Phone [...] | Author | [facility] | | | and [place] | + + + | Organization | [facility] | | [...] | | | | | [place] [address] | | + + + + + | Najma Krishnamurthy | ECON | Unknown | | + + + + + | Hetcor Mack | ECON | [address] | | | | | [place] | | | | | [address] | | + + + + + | Najma Sanches | ECON | Unknown | | + + + + + Care Team Providers + +------+ + | Care Senior Facilities Manager Name | Role | Phone | + +------+ + PCP | Unavailable | + +------+ + Encounter Details +--------+ + + + + | Date | Type | Department | Care Team | Description | +--------+ + + + + | 07/25/ | Hospital | [facility] | Tuan Chan, | LUMBOSACRAL NEURITIS | | 2004 | Encounter | [address] | MD 2010 | [address] | | | | [address] | [facility], [place] | | | | | [place], [place] | [address] | | | | | [address] | [phone] | | | | | [phone] | | | +--------+ + + + [...]
--- OUTSIDE RECORDS SUMMARY | ~2019-07-26 | XMS | Encounter Summary ---
Demographics + + + | Address | BAD ADDRESS | | | [place] [address] | + + + | Home Phone [...] | Author | [facility] | | | and [place] | + + + | Organization | [facility] | | | and [place] | + + + | Address | Unknown | + + + | Phone | Unavailable | + + + Support + + + + + | Name | Relationship | Address | Phone | + + + + + | Hector Mack | ECON | [address] | | | | | [place] [address] | | + + + + + | Najma Krishnamurthy | ECON | Unknown | | + + + + + | Hector Mack | ECON | [address] | | | | | [place] | | | | | [address] | | + + + + + | Najma Sanches | ECON | Unknown | | + + + + + Care Team Providers + +------+ + | Care Webbing Tacker Name | Role | Phone | + +------+ + | Tuan Chan MD | PCP | | + +------+ + Encounter Details +--------+ + + + + | Date | Type | Department | Care Team | Description | +--------+ + + + + | 11/02/ | Orders Only | [facility] | Provider, | | | 2019 | | SYSTEM GENERIC OP | [address] | | | | | [address] | [address] | | | | | [address] [place], [place] | [place] [address] | | | | | [address] | | | | | | [phone] | | | +--------+ + + + [...]
--- OUTSIDE RECORDS SUMMARY | ~2019-07-26 | XMS | Encounter Summary ---
Demographics + + + | Address | [address] | | | [place] [address] | + + + | Home Phone [...] [place] | | | | | [address] | | + + + + + Care Team Providers + +------+ + | Care Planing Machine Operator Name | Role | Phone [...] at [facility] [address] | | | | | | [facility] | | | | | | for Health and | | | | | | [facility] Building [address], | | | | | | 5th Floor [place], | | | | | | [place] [address] | | | | | | [phone] | | | +--------+---------+ + + + [...]
--- OUTSIDE RECORDS SUMMARY | ~2019-07-26 | XMS | Encounter Summary ---
Demographics + + + | Address | BAD ADDRESS | | | [place] [address] | + + + | Home Phone | | + + + | Preferred Language | Unknown | + + + | Marital Status | | + + + | Yarsanism Affiliation | 1077 | + + + | Race | Unknown | + + + | Ethnic Group | Unknown | + + + Author + + + | Author | and [facility] | | | and [place] | + + + | Organization | and [facility] | | | and [...] | | | | | [place] [address] | | + + + + + | Najma Krishnamurthy | ECON | Unknown | | + + + + + | Hector Mack | ECON | [address] | | | | | [place] | | | | | [address] | | + + + + + | Najma Sanches | ECON | Unknown | | + + + + + Care Team Providers + +------+ + | Care Federal Appellate Clerk Name | Role | Phone | + +------+ + PCP | Unavailable | + +------+ + Encounter Details +--------+ + + + + | Date | Type | Department | Care Team | Description | +--------+ + + + + | 01/21/ | Hospital | [facility] | Lalo Londono MD | | | 2004 | Encounter | MED CTR XRAY [address] | [address] | | | | | [place] | [address] | | | | | [place] [address] | [address] | | | | | [phone] | | | +--------+ + + + [...]
--- OUTSIDE RECORDS SUMMARY | ~2019-07-26 | XMS | Encounter Summary ---
Demographics + + + | Address | [address] | | | [place] [address] | + + + | Home Phone [...] [place] | | | | | [address] | | + + + + + Care Team Providers + +------+ + | Care Funeral Home General Manager Name | Role | Phone [...] | | 2005 | Visit | Bariatric [address] | MD | Morbid Obesity (HCC) | | | | [address] | | | | | | Mailcode: L223A | | | | | | [facility] | | | | | | [address] [place], [place] | | | | | | [address] | | | | | | [phone] | | | +--------+---------+ + + + [...] has been cleared for surgery by her privacy officer, Dr. Melendez. She states she has completed dietary consultation and psychological evaluation in [facility]. Those records have been requested. Current [...] REFLUX DISEASE) SLEEP APNEA Past Surgical History: AL CABG, VEIN, FOUR HX APPENDECTOMY HX CHOLECYSTECTOMY [...]
--- OUTSIDE RECORDS SUMMARY | ~2019-07-26 | XMS | Encounter Summary ---
Demographics + + + | Address | BAD ADDRESS | | | [place] [address] | + + + | Home Phone [...] | Author | [facility] | | | and Byron[place] | + + + | Organization | [facility] | | | and [...] | | | | | [place] [address] | | + + + + + | Najma Krishnamurthy | ECON | Unknown | | + + + + + | Hector aMck | ECON | [address] | | | | | [place] | | | | | [address] | | + + + + + | Najma Sanches | ECON | Unknown | | + + + + + Care Team Providers + +------+ + | Care Junior Data Analyst Name | Role | Phone | + +------+ + | Tuan Chan MD | PCP | | + +------+ + Encounter Details +--------+ + + + + | Date | Type | Department | Care Team | Description | +--------+ + + + + | 06/10/ | Hospital | [facility] | Leandra Chávez, | Unstable angina | | 2016 - | Encounter | MED CTR ICU [address] | [address] | ([facility]) (Primary Dx); | | | | [address] [place], | [place], [place] | Non-cardiac chest | | 06/11/ | | [place] [address] | [address] | pain | | 2015 | | [phone] | | | +--------+ + + + [...] Unstable angina . She was transferred from [facility] with ongoing chest pain. Today at lunch time she developed chest discomfort. She was preparing lunch at the time. T preethi discomfort was sharp and stabbing. She was transferred from [facility] on NTG and heparin. The transfer took about 8 hours. The pain has not gone away. She was started on NTG drip a nd heparin. NTG was titrated up. She arrived here on 30 mcg/ min. She still had 4/10 pain . She had no acute ECG changes. She had some dyspnea and diaphoresis no radiation. 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 [id number] [employer]. [address] [place], [place] [address]. All righ ts reserved. This information is [...] PROVIDER: | | | Tuan Chan MD MATRIX BATH ATTENDANT: Dr. Leandra Chávez MD, | | | [facility], [facility] PRE-PROCEDURE DIAGNOSIS: Unstable Angina | [...] multiple views | | | using 6 [place] JL5 and 5 F AL1 and an JESUS diagnostic catheters. | | | A 5 pashto pigtail catheter was advanced into the left [...] RECOMMENDATIONS Continue medical Rx Leandra Chávez MD, [facility], | | | [facility] DATE/TIME: 06/12/2015 0:27 | | | 06/12/2015 0:27 Portions of this chart were created with [employer] | | | voice recognition software. Occasional [...] + | [facility] | [address] | [place], [place] | [phone] | | [facility] | | [address] | | | - LABORATORY | | [...] | | | | ERWIN MORALES MD ([id number]) | | | | | | on [...] + | [facility] | [address] | [place], [place] | [phone] | | [facility] | | [address] | | | - LABORATORY | | [...] ST. | [address] | [place], [place] | [phone] | | [facility] | | [address] | | | - LABORATORY | | [...] | | | | | mg/dL | [facility] | | | | | | MEDICAL | | | | | | CENTER - | | | | | | LABORATORY | | + + + + + + | eGFR if not | >60Comment: GLOMERULAR | >=60 | [facility] | | | | FILTRATION | mL/min/1.73m2 | [facility] | | | EAST [place] | RATE,ESTIMATED | | MEDICAL | | | | mL/min/1.93o5Vqfz than | | CENTER - | | [...] | | | | | mg/dL | [facility] | | | | | [...] ST. | [address] | [place], [place] | [phone] | | [facility] | | [address] | | | - LABORATORY | | [...] [address] | [place] | [phone] | | [facility] | | [address] | | | - LABORATORY | | [...] | | | | | | [employer] | | | | | [...] + | [facility] | [address] | [place] | [phone] | | [facility] | | [address] | | | - LABORATORY | | [...] + | [facility] | [address] | [place], [place] | [phone] | | [facility] | | [address] | | | - LABORATORY | | [...]
--- OUTSIDE RECORDS SUMMARY | ~2019-07-26 | XMS | Encounter Summary ---
Demographics + + + | Address | BAD ADDRESS | | | [place] [address] | + + + | Home Phone | | + + + | Preferred Language | Unknown | + + + | Marital Status | | + + + | Sikhism Affiliation | 1077 | + + + | Race | Unknown | + + + | Ethnic Group | Unknown | + + + Author + + + | Author | [facility] | | | and [place] | + + + | Organization | [facility] | | | and [...] | | | | | [place] [address] | | + + + + + | Najma Krishnamurthy | ECON | Unknown | | + + + + + | Hector Mack | ECON | [address] | | | | | [place] | | | | | [address] | | + + + + + | Najma Sanches | ECON | Unknown | | + + + + + Care Team Providers + +------+ + | Care Cloth Folder Machine Name | Role | Phone | + +------+ + PCP | Unavailable | + +------+ + Encounter Details +--------+ + + + + | Date | Type | Department | Care Team | Description | +--------+ + + + + | 04/22/ | Hospital | [facility] | Conversion | Pain | | 2012 | Encounter | CONVERSION DEP [address] | Transaction, | | | | | [address] | Provider Unknown | | | | | [place], [place] | [phone] | | | | | [address] | | | | | | [phone] | | | +--------+ + + + [...]
--- OUTSIDE RECORDS SUMMARY | ~2019-07-26 | XMS | Encounter Summary ---
Demographics + + + | Address | [address] | | | [place] [address] | + + + | Home Phone [...] [place] | | | | | [address] | | + + + + + Care Team Providers + +------+ + | Care Financial Investment Manager Name | Role | Phone | + +------+ + | Tuan Chan MD | PCP | | + +------+ + Encounter Details +--------+ + + + + | Date | Type | Department | Care Team | Description | +--------+ + + + + | 02/06/ | Respiratory | | Other, Faculty | | | 2005 | Therapy | | [phone] | | +--------+ + + + + [...] | | | | | Ap Butler, RADIOLOGY DIRECTOR | | | | + + + [...] SPECIAL | [address] | [place], [place] | | | DIAGNOSTICS - | [address] | [address] | | | PULMONARY FUNCTION | | [...] AMY DOWNS | [address] | [place], [place] | | | DIAGNOSTICS - | [address] | [address] | | | PULMONARY FUNCTION | | [...] [facility] DOWNS | [address] | [place], [place] | | | DIAGNOSTICS - | [address] | [address] | | | PULMONARY FUNCTION | | [...] [facility] | [address] | [place], [place] | | | DIAGNOSTICS - | [address] | [address] | | | PULMONARY FUNCTION | | [...] | | | | | Noe Alas, RADIOLOGY DIRECTOR | | | | + + + [...] [facility] | [address] | [place], [place] | | | DIAGNOSTICS - | [address] | [address] | | | PULMONARY FUNCTION | | [...] [facility] DOWNS | [address] | [place], [place] | | | DIAGNOSTICS - | [address] | [address] | | | PULMONARY FUNCTION | | [...] [facility]NS | [address] | [place], [place] | | | DIAGNOSTICS - | [address] | [address] | | | PULMONARY FUNCTION | | [...] | | | | | Jeff Watts RADIOLOGY DIRECTOR | | | | + + + [...] [facility] | [address] | [place], [place] | | | DIAGNOSTICS - | [address] | [address] | | | PULMONARY FUNCTION | | [...] | | | | | Mark Giraldo, RADIOLOGY DIRECTOR | | | | + + + [...] [facility] SPECIAL | [address] | [place], [place] | | | DIAGNOSTICS - | [address] | [address] | | | PULMONARY FUNCTION | | [...] [facility] DOWNS | [address] | [place], [place] | | | DIAGNOSTICS - | [address] | [address] | | | PULMONARY FUNCTION | | [...] [facility] | [address] | [place], [place] | | | DIAGNOSTICS - | [address] | [address] | | | PULMONARY FUNCTION | | [...] 10. 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 . | | | | [...] | | | | . Sirisha Vigil, [facility] | | | | + + [...] [facility] | [address] | [place], [place] | | | DIAGNOSTICS - | [address] | [address] | | | PULMONARY FUNCTION | | [...] [facility] DOWNS | [address] | [place], [place] | | | DIAGNOSTICS - | [address] | [address] | | | PULMONARY FUNCTION | | | | + + + + + documented in this encounter Visit Diagnoses Not on filedocumented in this encounter"
--- OUTSIDE RECORDS SUMMARY | ~2019-07-26 | XMS | Encounter Summary ---
Demographics + + + | Address | BAD ADDRESS | | | [place] [address] | + + + | Home Phone [...] + + + | Author | [facility] | | | and [place] | + + + | Organization | [facility] | | [...] | | | | | [place] [address] | | + + + + + | Najma Krishnamurthy | ECON | Unknown | | + + + + + | Hector Mack | ECON | [address] | | | | | [place] | | | | | [address] | | + + + + + | Najma Sanches | ECON | Unknown | | + + + + + Care Team Providers + +------+ + | Care Organization Development Consultant Name | Role | Phone | + +------+ + | Tuan Chan MD | PCP | | + +------+ + Encounter Details +--------+ + + + + | Date | Type | Department | Care Team | Description | +--------+ + + + + | 05/18/ | Hospital | [facility] | Oralia Koo | | | 2019 | Encounter | HOSPITAL GROUND | [address] | | | | | [address] | MEDICAL [facility] | | | | | [address] | [place] [address] | | | | | [employer] [place], [place] | [phone] | | | | | [address] | | | | | | [phone] | | | +--------+ + + + [...]
--- OUTSIDE RECORDS SUMMARY | ~2019-07-26 | XMS | Encounter Summary ---
Demographics + + + | Address | BAD ADDRESS | | | [place] [address] | + + + | Home Phone [...] | Author | [facility] | | | and [place] | + + + | Organization | [facility] | | | and [...] | | | | | [place] [address] | | + + + + + | Najma Krishnamurthy | ECON | Unknown | | + + + + + | Hector Mack | ECON | [address] | | | | | [place] | | | | | [address] | | + + + + + | Najma Sanches | ECON | Unknown | | + + + + + Care Team Providers + +------+ + | Care Steam And Power Supervisor Name | Role | Phone | + +------+ + PCP | Unavailable | + +------+ + Encounter Details +--------+ + + + + | Date | Type | Department | Care Team | Description | +--------+ + + + + | 09/07/ | Hospital | [facility] | Conversion | Chest pain | | 2012 | Encounter | CONVERSION DEP [address] | Transaction, | | | | | [address] | Provider Unknown | | | | | [place], [place] | [phone] | | | | | [address] | | | | | | [phone] | | | +--------+ + + + [...]
--- OUTSIDE RECORDS SUMMARY | ~2019-07-26 | XMS | Encounter Summary ---
Demographics + + + | Address | BAD ADDRESS | | | [place] [address] | + + + | Home Phone [...] Author | [facility] | | | and [place] | + + + | Organization | [facility] | | | and [place] | + + + | Address | Unknown | + + + | Phone | Unavailable | + + + Support + + + + + | Name | Relationship | Address | Phone | + + + + + | Hector Mack | ECON | [address] | | | | | [place] [address] | | + + + + + | Najma Krishnamurthy | ECON | Unknown | | + + + + + | Hector Mack | ECON | [address] | | | | | [place] | | | | | [address] | | + + + + + | Najma Sanches | ECON | Unknown | | + + + + + Care Team Providers + +------+ + | Care Web Operations Manager Name | Role | Phone | + +------+ + PCP | Unavailable | + +------+ + Encounter Details +--------+ + + + + | Date | Type | Department | Care Team | Description | +--------+ + + + + | 10/16/ | Hospital | [facility] | Lalo Londono MD | | | 2004 | Encounter | MED CTR GENERIC OP | [address] | | | | | CONV DEPT [address] | [address] | | | | | [place], | [address] | | | | | [place] [address] | | | | | | [phone] | | | +--------+ + + + [...]
--- OUTSIDE RECORDS SUMMARY | ~2019-07-26 | XMS | Encounter Summary ---
Demographics + + + | Address | BAD ADDRESS | | | [place] [address] | + + + | Home Phone [...] + | Author | [facility] | | | and [place] | + + + | Organization | [facility] | [...] | | | | | [place] [address] | | + + + + + | Najma Krishnamurthy | ECON | Unknown | | + + + + + | Hecotr Mack | ECON | [address] | | | | | [place] | | | | | [address] | | + + + + + | Najma Sanches | ECON | Unknown | | + + + + + Care Team Providers + +------+ + | Care Funeral Director Name | Role | Phone | + +------+ + PCP | Unavailable | + +------+ + Encounter Details +--------+ + + + + | Date | Type | Department | Care Team | Description | +--------+ + + + + | 04/24/ | Hospital | [facility] | Conversion | Pain | | 2013 | Encounter | CONVERSION DEP [address] | Transaction, | | | | | [address] [address] | Provider Unknown | | | | | [place], [place] | [phone] | | | | | [address] | | | | | | [phone] | | | +--------+ + + + [...]
--- OUTSIDE RECORDS SUMMARY | ~2019-07-26 | XMS | Encounter Summary ---
Demographics + + + | Address | [address] | | | [place] [address] | + + + | Home Phone [...] [place] | | | | | [address] | | + + + + + Care Team Providers + +------+ + | Care Door Patcher Name | Role | Phone | + [...] | 2008 | Visit | Medical at [facility] [address] | [address] | (Primary Dx); | | | | [facility] | [facility], | Encounter for | | | | for Health and | [place] [address] | Long-Term (Current) | | | | [facility]aling [facility] [address], | [phone] | Use of Other | | | | [address] Floor | | Medications | | | | [place], [place] | | | | | | [address] | | | | | | [phone] | | | +--------+---------+ + + + [...] in 06/06 --s/p CABG in 2000 in [facility] --s/p cholecystectomy 35 years ago --s/p [...] month Julia Buckley PA-C Department of Dermatology [facility] documented in this encounter Plan of Treatment Not on filedocumented as of this encounter Visit Diagnoses + + | Diagnosis | + + | 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
--- OUTSIDE RECORDS SUMMARY | ~2019-07-26 | XMS | Encounter Summary ---
Demographics + + + | Address | [address] | | | [place] [address] | + + + | Home Phone [...] [place] | | | | | [address] | | + + + + + Care Team Providers + +------+ + | Care Lobster Man Name | Role | Phone | [...] as of this encounter Progress Notes Interface, Formulation Scientist In - 02/15/2006 2:34 AM [facility] [id number] ANTONIETTAKRZYSZTOF RAE [id number] Referred From and Faxed To: Tim Paula [...] 4:01. Length of Visit: Sixty-one minutes of [id number] consult with the patient and her friend [...] with myself, dietitian post-surgery. She is from [place]. This visit can be scheduled when she has a followup appointment with her surgeon here at [facility] Patient's Comprehension: This visit [...] friend Lulu. Caitlyn Chery R.D., L.D. / [id number] / [id number] / [id number] / cc: Chey Milan A.NSonyPSony Electronically signed by Caitlyn Chery 02-14-2006 01:37:50 PM documented i n this encounter Plan of Treatment Not on filedocumented as of this encounter Visit Diagnoses Not on filedocumented in this encounter"
--- OUTSIDE RECORDS SUMMARY | ~2019-07-26 | XMS | Encounter Summary ---
Demographics + + + | Address | BAD ADDRESS | | | [place] [address] | + + + | Home Phone [...] + | Author | [facility] | | | and [place] | + + + | Organization | [facility] | | | and [place] | + + + | Address | Unknown | + + + | Phone | Unavailable | + + + Support + + + + + | Name | Relationship | Address | Phone | + + + + + | Hector Blankenship | ECON | [address] | | | | | [place] [address] | | + + + + + | Najma Krishnamurthy | ECON | Unknown | | + + + + + | Hector Blankenship | ECON | [address] | | | | | [place] | | | | | [address] | | + + + + + | Najma Sanches | ECON | Unknown | | + + + + + Care Team Providers + +------+ + | Care Deckhand [employer] Name | Role | Phone | + [...] | | CARE FLOOR [address] | [address] | hematuria; History | | 08/27/ | | [address] | [address] | of stroke | | 2019 | | [place], [place] | | | | | | [address] | | | | | | [phone] | | | +--------+ + + + [...] Summaries by Noe Bolton MD at 08/27/18 1305 Author: Noe Bolton MD Service: Hospitalist Author Type: Physician Filed: 08/28/18 2241 Date of Service: 08/27/181302 Status: Signed Business Excellence Leader: Noe Bolton MD (Physician) [facility] Service: Hospitalist Physician Discharge Summary Patient [...] 6 months ago who was transferred from [facility] because of new onset seizures. She had one episode at home described to be generalized tonic-clonic lasting for 5 minutes with postictal state. In the emergency ro om, she had another witnessed 5-minute tonic-clonic movement. She was loaded with Keppra IV and was given Ativan prior to transfer to [facility]. She is here for further neurologic evalu ate. Of note, the patient was also diagnosed to have UTI and was started on ceftriaxone damian or to transfer to [facility]. According to the daughter, patient has not [...] t on 08/25/2018. Patient was admitted to [facility] with diagnosis of new onset of seizures. [...] on 08/27/2018. Patient was trans ferred to [facility] for further rehab therapy. Additional issues: [...] patient with destination the pharmacy being in [employer]. 3. Chronic type II odontoid fracture . [...] > RCA COPD (chronic obstructive pulmonary disease) ([facility]) Hydronephrosis of right kidney Hyperlipidemia Hypertension many years Kidney disease GA (myocardial infarction) ([facility]) 09/05/2012 NSTEMI Morbid obesity ([facility]) weighed over 500 lbs prior to bariatric surgery, lost > 300 lbs Recurrent nephrolithiasis S/P CABG x 4 1998 occluded SVG>RCA; patent CASAS>LAD, patent "Y" seq SVG>D1>OM2 (cath 09/10) S/P PTCA (percutaneous transluminal coronary angioplasty) 3.5x16, 2.75x32 Taxus TRAVIS mid-distal LCx (07/16/03) // 2.5x12 Promus Element TRAVIS R PDA, 3.5 x15 Promus Element TRAVIS distal RCA (09/05/12) Stroke ([facility]) 2013 Right-sided, left facial droop - resolved; mild residual memory deficit Type II diabetes mellitus ([facility]) resolved with weight loss following bariatric [...] Name: GERMAINE BARBOUR Date of : 1945 [facility] ng Physician: Miky Alamo ____ [...] TR maxP.27 mmHg TR Vmax: 2.35 m/s Ripper Operator: Authenticated by: Miky [place] Report Date/Time: 08-22-2018 14:3 8:8 1. The [...] 08/22/18 0634 MG 2.0 1.8 1.6* Disposition: [facility] Follow up: Tuan Chan MD [address] [facility] [address] Schedule an appointment as soon as possible for a visit For hospitalization re-evaluation ; and further management of short-term memory problems am loree others. Tash Herzog MD [address] [place] [address] [place] [address] Schedule an appointment as soon as [...] These medications were sent to [facility] [place] - [address] [facility] [id number] albuterol 108 (90 Base) MCG/ACT inhaler atorvastatin [...] 08/27/182022 Date of Service: 08/27/181458 Status: Signed Business Excellence Leader: Lisa Lorenzana RN (Registered Nurse) No significant changes from shift assessment. No falls or new signs of skin breakdown. No c omplaints of pain, nausea or SOB. VSS for remainder of shift. WCM End of shift chart check done. Report called to Munira GARDUNO at [facility]. IV removed. Transportation arrived. onver gris Transaction, Provider Unknown - 08/27/2018 2:59 PM PDT Case Management by Maria Del Rosario Dorado RN at 08/27/18 6655 Author: Maria Del Rosario Dorado RN Service: (none) Author Type: Registered Nurse Filed: 08/27/18 1539 Date of Service: 08/27/18 8189 Status: Signed Business Excellence Leader: Maria Del Rosario Dorado RN (Registered Nurse) Disposition: [facility] Transportation: [place] All orders, signed AVS, and prescriptions have been faxed: faxed to Ester @ [facility] [place] paperwork completed Patient and family in agreement with discharge plan Medicare important message (Given or N/A): given Liz Dorado RN,BSN,CM onver gris Transaction, Provider Unknown - 08/27/2018 10:21 AM PDT Therapy Progress Note by Lalo Epstein PTA at 08/27/18 1021 Author: Lalo Epstein PTA Service: (none) Author Type: Founder Ceo & President Filed: 08/27/18 1139 Date of Service: 08/27/18 1021 Status: Signed Business Excellence Leader: Lalo Epstein PTA (Founder Ceo & President) PHYSICAL THERAPY TREATMENT NOTE PT Received On: 08/27/18 Reason for Treatment: Other (comment) (Fall) Requires PT Follow Up: Yes Recommendations: Other (comment), [facility] (memory care facility) Plan Treatment/Interventions: Continue per Primary PT POC Progress: Progressing toward goals Summary Comments: Pt in room with nursing when SULKY DRIVER arrives, agreeable to therapy. Therapy focused o n increasing activity tolerance, balance activities, and LE strengthening. When pt had 4WW p laced in front of her, she placed her leg up on the seated and tried to climb on the walker when asked to walk. SULKY DRIVER attempted to have the pt ambulate with 4WW again and determined that it was safer to attempted to ambulate without an AD. Pt demonstrated good stability while a mbulating with MORTGAGE ANALYST. While performing balance activities pt required frequent reminders of wh at she was doing as her confusion increased with activity. Pt was able to perform seated exe rcises with no increase in pain. Pt would benefit from continued therapy focusing on increas ing activity tolerance, balance activities and LE strengthening. Pt finished therapy in [facility] with all needs met. Precautions Other Precautions: Fall precautions, cognition Cognition Overall Cognitive Status: Impaired Orientation Level: Oriented, Disoriented FUNCTIONAL MOBILITY Transfers Sit to/from Stand: Standby assist Ambulation Weight Bearing Status: WBAT RLE, WBAT LLE Maximal Ambulation Distance (feet): 150+150 Total Ambulation Distance (feet): 300 Ambulation Assistance: Standby assist Distance limited by?: Therapist/staff discretion Pattern: Alternating, Decreased rosie Assistive Device: Other (Comment) (MORTGAGE ANALYST) BALANCE High Level Balance Side Stepping: Right, [...] Note by Camila Anglin RN at 08/26/18 3894 Author: Camila Anglin RN Service: (none) Author Type: Registered Nurse Filed: 08/26/181815 Date of Service: 08/26/181815 Status: Signed Business Excellence Leader: Camila Anglin RN (Registered Nurse) Chart audit complete. onver gris Transaction, Provider Unknown - 08/26/2018 4:15 PM PDT Case Management by Maria Del Rosario Dorado RN at 08/26/18 161 Author: Maria Del Rosario oDrado RN Service: (none) Author Type: Registered Nurse Filed: 08/26/18 1616 Date of Service: 08/26/181614 Status: Signed Business Excellence Leader: Maria Del Rosario Dorado RN (Registered Nurse) CM informed Ester @ [facility] that pt is NMR for discharge today. CM to f/u tomorro w. onver gris Transaction, Provider Unknown - 08/26/2018 11:43 AM PDT Nurse Progress Note by Bear Russell RN at 08/26/18 1143 Author: Bear Russell RN Service: (none) Author Type: Registered Nurse Filed: 08/26/18 1144 Date of Service: 08/26/18 1143 Status: Signed Business Excellence Leader: Bear Russell RN (Registered Nurse) Report given to SHAAN Jensen who will assume care of this patient. onver gris Transaction, Provider Unknown - 08/26/2018 11:30 AM PDT Pharmacy Note by Jen Vargas RPH at 08/26/18 1130 Author: Jen Vargas RPH Service: Pharmacy Author Type: Pharmacist Filed: 08/26/18 1132 Date of Service: 08/26/18 1130 Status: Signed Business Excellence Leader: Jen Vargas RPH (Pharmacist) Antimicrobial Stewardship Team [...] ceftriaxone therapy which was sta rted at [facility] for UTI. Unsure if cultures from other [...] 08/26/182124 Date of Service: 08/26/18811 Status: Addendum Business Excellence Leader: Noe Bolton MD (Physician) Related Notes: Original Note by Noe Bolton MD (Physician) filed at 08/26/182124 [facility] Service: Hospitalist Progress Note Pt: Germaine Blankenship AGE/SEX: 72 y.o. female : 1945 ROOM: 4465/4465-1 " Patient Summary: 72-year-old female with history of hypertension, hyperlipidemia, coronar y artery disease a status post CABG x4, history of alcohol abuse, history of drug use, histo ry of nephrolithiasis, history of recent stroke 6 months ago who was transferred from [facility] because of new onset seizures. She had one episode at home described to be generalized tonic-clonic lasting for 5 minutes with postictal state. In the emergency ro om, she had another witnessed 5-minute tonic-clonic movement. She was loaded with Keppra IV and was given Ativan prior to transfer to [facility]. She is here for further neurologic evalu ate. Of note, the patient was also diagnosed to have UTI and was started on ceftriaxone damian or to transfer to [facility]. According to the daughter, patient has not [...] TR maxP.27 mmHg TR Vmax: 2.35 m/s Ripper Operator: Authenticated by: Miky Alamo Report Date/Time: 08-22-2018 [...] > RCA COPD (chronic obstructive pulmonary disease) ([facility]) Hydronephrosis of right kidney Hyperlipidemia Hypertension many years Kidney disease GA (myocardial infarction) ([facility]) 09/05/2012 NSTEMI Morbid obesity ([facility]) weighed over 500 lbs prior to bariatric surgery, lost > 300 lbs Recurrent nephrolithiasis S/P CABG x 4 1998 occluded SVG>RCA; patent CASAS>LAD, patent "Y" seq SVG>D1>OM2 (cath 09/10) S/P PTCA (percutaneous transluminal coronary angioplasty) 3.5x16, 2.75x32 Taxus TRAVIS mid-distal LCx (07/16/03) // 2.5x12 Promus Element TRAVIS R PDA, 3.5 x15 Promus Element TRAVIS distal RCA (09/05/12) Stroke ([facility]) 2013 Right-sided, left facial droop - resolved; mild residual memory deficit Type II diabetes mellitus ([facility]) resolved with weight loss following bariatric [...] PROBLEM LIST Principal Problem: New onset seizure ([facility]) Active Problems: HTN (hypertension) CAD (coronary artery disease) S/P CABG x 4 Hyperlipidemia ASSESSMENT & PLAN 72-year-old female with the followin. New onset seizures. Recurrent episodes of seizure after admission. No further seizure s reported after Keppra has been increased to 750 mg p.o. twice daily as recommended by neur ology consultants intern. -Continue seizure precautions. Follow-up with neurology on [...] 08/26/18604 Date of Service: 08/26/18603 Status: Signed Business Excellence Leader: Brennan Rosa RN (Registered Nurse) Pt remains [...] 08/25/181813 Date of Service: 08/25/181810 Status: Signed Business Excellence Leader: Bear Russell RN (Registered Nurse) Pt continues [...] Date of Service: 08/25/18 1556 Status: Signed Business Excellence Leader: Neo Guerrero PT (Physical Therapist) PHYSICAL THERAPY [...] Management by Lakshmi Bradshaw RN at 08/25/18 4787 Author: Lakshmi Bradshaw RN Service: (none) Author Type: Registered Nurse Filed: 08/25/18 1220 Date of Service: 08/25/18 1204 Status: Signed Business Excellence Leader: Lakshmi Bradshaw RN (Registered Nurse) Spoke with patient, daughter, and son-in-law who state pt will need to discharge to [facility] in [employer], referral sent. Requested a cog eval for baseline, suggested if pt's husba nd no longer wants to be involved in her care that a POA for HC and Finances be established and documented through a public health service officer. currently has pt's Medicaid card, daughter will [...] 1015 Date of Service: 08/25/18902 Status: Signed Business Excellence Leader: Miky Alamo MD (Physician) [facility] Service: Cardiology Progress Note Name of Morning Babysitter: Miky Alamo MD I have seen the [...] 08/25/182100 Date of Service: 08/25/18830 Status: Signed Business Excellence Leader: Noe Bolton MD (Physician) [facility] Service: Hospitalist Progress Note Pt: Germaine Jesus Jneni Blankenship AGE/SEX: 72 y.o. female : 1945 ROOM: [facility] " Patient Summary: 72-year-old female with history of hypertension, hyperlipidemia, coronar y artery disease a status post CABG x4, history of alcohol abuse, history of drug use, histo ry of nephrolithiasis, history of recent stroke 6 months ago who was transferred from [facility] because of new onset seizures. She had one episode at home described to be generalized tonic-clonic lasting for 5 minutes with postictal state. In the emergency ro om, she had another witnessed 5-minute tonic-clonic movement. She was loaded with Keppra IV and was given Ativan prior to transfer to [facility]. She is here for further neurologic evalu ate. Of note, the patient was also diagnosed to have UTI and was started on ceftriaxone damian or to transfer to [facility]. According to the daughter, patient has not [...] report and is used for image [facility] only X-ray Hip 2 View Right Result [...] radiologist report and is used for image [employer] [facility] only Echo Cardiac Adult Complete Result Date: [...] TR maxP.27 mmHg TR Vmax: 2.35 m/s Ripper Operator: Authenticated by: Miky Alamo Report Date/Time: 08-22-2018 [...] > RCA COPD (chronic obstructive pulmonary disease) ([facility]) Hydronephrosis of right kidney Hyperlipidemia Hypertension many years Kidney disease GA (myocardial infarction) ([facility]) 09/05/2012 NSTEMI Morbid obesity ([facility]) weighed [...] any n ravi pain. 3. Hypertension. Continue beta-líus therapy. Continue increased dose of lisinopril. 4. History of stroke. Continue Plavix. 5. History of coronary artery disease/history of CABG x4. Continue Plavix, lisinopril and metoprolol. -Currently denies chest pain appears to be compensated. 6. UTI. Continue ceftriaxone. Review urine cultures from [facility]. 7. Hypokalemia this resolved. 8. Atrial fibrillation [...] 015 Date of Service: 08/25/18146 Status: Signed Business Excellence Leader: Hamida Mccann RN (Registered Nurse) Pt. Impulsive, does well distraction coloring and watching movies, sponge bath pt. washed u p while sitting in chair. Chart review completed onver gris Transaction, Provider Unknown - 08/24/2018 5:39 PM PDT Nurse Progress Note by Radhames Armando RN at 08/24/18 1233 Author: Radhames Armando RN Service: (none) Author Type: Registered Nurse Filed: 08/24/18 1743 Date of Service: 08/24/18 390 Status: Signed Business Excellence Leader: Radhames Armando RN (Registered Nurse) Patient impulsive [...] Service: Neurology Author Type: Physician Filed: 08/24/18 2476 Date of Service: 08/24/181208 Status: Signed Business Excellence Leader: Tash Herzog MD (Physician) [facility] Service: Neurology Progress Note Hospital Day: [...] Patient was initially see n at [facility] at [employer], reportedly had a grand mal seizure at [...] Service: Cardiology Author Type: Physician Filed: 08/24/18 1100 Date of Service: 08/24/18 1052 Status: Signed Business Excellence Leader: Miky Alamo MD (Physician) [facility] Service: Cardiology Progress Note Name of Morning Babysitter: Miky Alamo MD I have seen the [...] 0917 Date of Service: 08/24/18724 Status: Signed Business Excellence Leader: Jeremías Diop MD (Physician) [facility] Service: Hospitalist Progress Note Hospital Day: LOS: 3 days SUBJECTIVE Patient Summary: 72-year-old female with history of hypertension, hyperlipidemia, joss nary artery disease a status post CABG x4, history of alcohol abuse, history of drug use, hi story of nephrolithiasis, history of recent stroke 6 months ago who was transferred from [facility] because of new onset seizures. She had one episode at home described to be generalized tonic-clonic lasting for 5 minutes with postictal state. In the emergency room, she had another witnessed 5-minute tonic-clonic movement. She was loaded with Keppra IV and was given Ativan prior to transfer to [facility]. She is here for further neurologic ev aluate. Of note, the patient was also diagnosed to have UTI and was started on ceftriaxone prior to transfer to [facility]. According to the daughter, patient has not been seen by her regular primary care phys ician for the past 1 and half years. Reportedly, she had a stroke 6 months ago and since, h as been having progressive functional decline. [facility] eventually [facility] this. Events [...] Continue ceftriaxone. Will follow-up urine culture from [facility]. Requests have been sent 08/23/2009. Hypokalemia Potassium [...] Disposition: Inpatient. Code Status: DNR/DNI Dictation and embedded systems engineer or software, [employer], used which may contain error for similar [...] Date of Service: 08/24/18 0655 Status: Signed Business Excellence Leader: Aura Boateng RN (Registered Nurse) Oriented to [...] 08/23/181855 Date of Service: 08/23/181854 Status: Signed Business Excellence Leader: Talita Brock RN (Registered Nurse) End of shift chart check complete. onver gris Transaction, Provider Unknown - 08/23/2018 6:39 PM PDT Nurse Progress Note by Talita Brock RN at 08/23/181838 Author: Talita Brock RN Service: (none) Author Type: Registered Nurse Filed: 08/23/181843 Date of Service: 08/23/181838 Status: Signed Business Excellence Leader: Talita Brock RN (Registered Nurse) 1830 Called [...] Notes by Jeremías Diop MD at 08/23/18 0913 Author: Jeremías Diop MD Service: Hospitalist Author Type: Physician Filed: 08/23/18 6938 Date of Service: 08/23/18942 Status: Addendum Business Excellence Leader: Jeremías Diop MD (Physician) Related Notes: Original Note by Jeremías Diop MD (Physician) filed at 08/23/18 1533 [facility] Service: Hospitalist Progress Note Hospital Day: LOS: 2 days SUBJECTIVE Patient Summary: 72-year-old female with history of hypertension, hyperlipidemia, joss nary artery disease a status post CABG x4, history of alcohol abuse, history of drug use, hi story of nephrolithiasis, history of recent stroke 6 months ago who was transferred from [facility] because of new onset seizures. She had one episode at home described to be generalized tonic-clonic lasting for 5 minutes with postictal state. In the emergency room, she had another witnessed 5-minute tonic-clonic movement. She was loaded with Keppra IV and was given Ativan prior to transfer to [facility]. She is here for further neurologic ev aluate. Of note, the patient was also diagnosed to have UTI and was started on ceftriaxone prior to transfer to [facility]. According to the daughter, patient has not [...] Continue ceftriaxone. Will follow-up urine culture from [facility] Requests have been sent. Hypokalemia Potassium [...] Disposition: Inpatient. Code Status: DNR/DNI Dictation and embedded systems engineer or software, [employer], used which may contain error for similar s ounding words even after review. Personal communication requested for any clarification. JEREMÍAS DIOP MD 08/23/2018 9:43 AM Miky Escobar MD - 08/23/2018 8:09 AM PDT Progress Notes by Miky Alamo MD at 08/23/18808 Author: Miky Alamo MD Service: Cardiology Author Type: Physician Filed: 08/23/18837 Date of Service: 08/23/18808 Status: Signed Business Excellence Leader: Miky Alamo MD (Physician) [facility] Service: Cardiology Progress Note Name of Morning Babysitter: Miky Alamo MD I have seen the [...] Note by Natalie Castillo RN at 08/23/18 0751 Author: Natalie Castillo RN Service: (none) Author Type: Registered Nurse Filed: 08/23/18 08 Date of Service: 08/23/18752 Status: Signed Business Excellence Leader: Natalie Castillo RN (Registered Nurse) Pt SB [...] 115 Date of Service: 08/22/181155 Status: Signed Business Excellence Leader: Rhonda An RD (Registered Dietitian) 08/22/18 1142 Subjective Timepoint Admit (pressure injury ) Pt [...] (Mouth to Rectum) On modified diet per WOMEN'S STUDIES PROFESSOR. Pt denies chewing or swallowi ng issues. [...] Recommendations Recommended energy needs Continue diet per WOMEN'S STUDIES PROFESSOR. House trays. Supplements available if nee ded. [...] 1428 Date of Service: 08/22/18901 Status: Signed Business Excellence Leader: Jeremías Diop MD (Physician) [facility] Service: Hospitalist Progress Note Hospital Day: LOS: 1 day SUBJECTIVE Patient Summary: 72-year-old female with history of hypertension, hyperlipidemia, joss nary artery disease a status post CABG x4, history of alcohol abuse, history of drug use, hi story of nephrolithiasis, history of recent stroke 6 months ago who was transferred from [facility] because of new onset seizures. She had one episode at home described to be generalized tonic-clonic lasting for 5 minutes with postictal state. In the emergency room, she had another witnessed 5-minute tonic-clonic movement. She was loaded with Keppra IV and was given Ativan prior to transfer to [facility]. She is here for further neurologic ev aluate. Of note, the patient was also diagnosed to have UTI and was started on ceftriaxone prior to transfer to [facility]. According to the daughter, patient has not [...] Continue ceftriaxone. Will follow-up urine culture from [facility]. Hypokalemia Potassium replacement protocol ordered. Atrial fibrillation [...] Disposition: Inpatient. Code Status: DNR/DNI Dictation and embedded systems engineer or software, [employer], used which may contain error for similar s ounding words even after review. Personal communication requested for any clarification. JEREMÍAS DIOP MD 08/22/2018 9:02 AM onversion Transactio n, Provider Unknown - 08/22/2018 7:03 AM PDT Nurse Progress Note by Natalie Castillo RN at 08/22/18702 Author: Natalie Castillo RN Service: (none) Author Type: Registered Nurse Filed: 08/22/18799 Date of Service: 08/22/18702 Status: Signed Business Excellence Leader: Natalie Castillo RN (Registered Nurse) Pt's HR [...] 08/21/181907 Date of Service: 08/21/181900 Status: Signed Business Excellence Leader: Susan Buckner RN (Registered Nurse) Post fall [...] Note by Susan Buckner RN at 08/21/18 7882 Author: Susan Buckner RN Service: (none) Author Type: Registered Nurse Filed: 08/21/18 1606 Date of Service: 08/21/181543 Status: Signed Business Excellence Leader: Susan Buckner RN (Registered Nurse) Pt found [...] Management by Blanca Calvert RN at 08/21/18 4048 Author: Blanca Calvert RN Service: (none) Author Type: Registered Nurse Filed: 08/21/18 4490 Date of Service: 08/21/18 115 Status: Signed Business Excellence Leader: Blanca Calvert RN (Registered Nurse) Met with pt, daughter and daughter's spouse, daughter answered CM's questions, pt was unabl e to participate. Per daughter pt was only released from [facility], ~ 2 mths ago, she was transferred t here from [facility] after having a stroke, she left the [...] mile awar for showers. Pt has a senior case manager Scarlett [phone], who will be back in office on Friday. She is rec eiving caregiving services, she is not sure the number of hours she is receiving. Caregiver s are from [facility]. Per daughter because of her poor living conditions, they has recently found her a Group [facility], but pt refused, did not want to leave her . They are now in the process of tr sherly to find a place for a couple. She requires assistance with dressing and showering, does not use DME. She takes Plavix daily. She is not participating in outpatient medical services, no home oxygen, cpap, dialysis or home health. 08/21/18 1143 Discharge Planning Evaluation Admitting Diagnosis New onset [...] Care Services Attendant (Receives caregiving services through [facility], [employer] Caregiver after Discharge No Mental Status Unable to answer questions (Daughter answered CM's questions, pt was sleeping.) Power of Mail Sorter And Delivery No Anticipated Discharge Plan Post Acute Care Needs Other (comment) (TBD) Plan communicated to patient/family Yes Resources Financial concerns No Transportation issues No Patient/Family concerns Yes (Daughter and her spouse expressed concern about pt's living conditions.) Prescription Plan Yes Name of Pharmacy [facility] [employer] Previous home health equipment No Vascular access device No Ostomy/Drains/Appliances No Anticipated Disposition Facility Type Other (Comment) Pt is a 72 y.o., female Patient's PCP is: Daughter is working on trying to find her a new PCP. Patient's insurance: Medicare/Medicaid [place]. Coverage concerns: None. Medication coverage/concerns: Yes/None. Community resources utilized / needed: Clinical [facility] [phone]. Assistance in transportation: TBD. Identification of any specific education / training: None. Barriers to Discharge / Alternative housing needed: Anticipated DCP: TBD pending clinical course. BLANCA CALVERT RN,. onver gris [employer], Provider Unknown - 08/21/2018 9:46 AM PDT Progress Notes by Silas Gomez RPH at 08/21/18945 Author: Silas Gomez RPH Service: Pharmacy Author Type: Pharmacist Filed: 08/21/18945 Date of Service: 08/21/18945 Status: Signed Business Excellence Leader: Silas Gomez RPH (Pharmacist) Clinical Pharmacy Note: [...] renal function and adjust accordingly. Silas Gomez [facility] 08/21/2018 9:46 AM Laura Haas Speech Pathologist - 08/21/2018 8:26 AM PDTFormatting of this note might be diff erent from the original. Therapy Progress Note by Laura Cisneros MS CCC-WOMEN'S STUDIES PROFESSOR at 08/21/18825 Author: Laura Cisneros MS CCC-WOMEN'S STUDIES PROFESSOR Service: (none) Author Type: Speech and Language Pat hologist Filed: 08/21/18826 Date of Service: 08/21/18825 Status: Signed Business Excellence Leader: Laura Cisneros MS CCC-WOMEN'S STUDIES PROFESSOR (Speech and Language Pathologist) 08/21/18799 WOMEN'S STUDIES PROFESSOR Last Visit WOMEN'S STUDIES PROFESSOR Received On 08/21/18 Requires WOMEN'S STUDIES PROFESSOR Follow Up On hold Attempted, but pt is somnolent and not able to wake for RN. RN to call if she becomes alert and appropriate to participate in evaluation. Laura Cisneros MS CCC-WOMEN'S STUDIES PROFESSOR 08/21/18 8:27 AM Jeremías Taveras MD - 08/21/2018 8:00 AM PDT Progress Notes by Jeremías Diop MD at 08/21/18799 Author: Jeremías Diop MD Service: Hospitalist Author Type: Physician Filed: 08/21/18 1389 Date of Service: 08/21/18799 Status: Addendum Business Excellence Leader: Jeremías Diop MD (Physician) Related Notes: Original Note by Jeremías Diop MD (Physician) filed at 08/21/18 5414 [facility] Service: Hospitalist Progress Note Hospital Day: LOS: 0 days SUBJECTIVE Patient Summary: 72-year-old female with history of hypertension, hyperlipidemia, joss nary artery disease a status post CABG x4, history of nephrolithiasis, history of recent str arsen 6 months ago who was transferred from [facility] because of new onset seiz ures. She had one episode at home described to be generalized tonic-clonic lasting for 5 mi nutes with postictal state. In the emergency room, she had another witnessed 5-minute tonic -clonic movement. She was loaded with Keppra IV and was given Ativan prior to transfer to [facility]. She is here for further neurologic evaluate. Of note, the patient was also diagnose d to have UTI and was started on ceftriaxone prior to transfer to [facility]. According to the daughter, patient has not been seen by her regular primary care phys icishawna for the past 1 and half years. Reportedly, she had a stroke 6 months ago and since, h as been having progressive functional decline. She was supposed to go to a long-term care [facility] but patient eventually declined this. Events Overnight: [...] Continue ceftriaxone. Will follow-up urine culture from [facility]. DVT prophylaxis: In place. GI prophylaxis: In place. Disposition: Inpatient. 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 Personal communication requested for any clarification. JEREÍMAS DIOP MD 08/21/2018 8:00 AM documented in [...] EXTERNAL | | | | performed at [facility], [address] | | LAB | | | | [address], | | | | | | [place] [address] | | | | + + + [...] EXTERNAL | | | | performed at [facility], [address] | | LAB | | | | [address], | | | | | | [place] [address] | | | | + + + [...] EXTERNAL | | | | performed at [facility], [address] | | LAB | | | | [address], | | | | | | [place] [address] | | | | + + + [...] | | | | | performed at [facility], [address] | | | | | | [address], | | | | | | [place] [address] | | | | + + + [...] EXTERNAL | | | | performed at [facility];888 | mmol/L | LAB | | | | [address];[place] | | | | | | [address] | | | | + + + [...] EXTERNAL | | | | performed at [facility];[address] | | LAB | | | | [address];[place] | | | | | | [address] | | | | + + + [...] EXTERNAL | | | | performed at [facility];[address] | | LAB | | | | [address];[place], [place] | | | | | | [address] | | | | + + + [...] EXTERNAL | | | | performed at [facility];[address] | | LAB | | | | [address];[place] | | | | | | [address] | | | | + + + [...] | | | | | performed at [facility];[address] | | | | | | [facility];[place], [place] | | | | | | [address] | | | | + + + [...] | | | | | performed at [facility], [address] | | | | | | [facility], | | | | | | [place] [address] | | | | + + + [...] EXTERNAL | | | | performed at [facility];[address] | mmol/L | LAB | | | | [address];[place], [place] | | | | | | [address] | | | | + + + [...] TR maxP.27 mmHg TR Vmax: 2.35 m/s Ripper Operator: | | | Authenticated by: Miky Alamo Report Date/Time: 08-22-2018 | | | 14:38:8 | | + + + + + | Procedure Note | + + | Victor Hugo, Rad Conversion - 11/10/2018 7:55 PM PDT Patient Name: JENNI BLANKENSHIP, | | SALLYDate of : 1945 Performing Physician: Miky | | [facility] INDICATIONS------ | | -----Abnormal EKG CONCLUSIONS 1. [...] mlLAESV Index (A-L): 66.54 ml/m2LAAs A2C: 29.59 zk5VHAEE A-L A2C: 105.11 | | mlLALs A2C: 7.07 cmLAAs A4C: 32.97 fw6AEEUV A-L A4C: 119.49 mlLALs A4C: 7.72 | | cmTAPSE: 1.59 cmHR: 48.54 BPMAV maxP.21 mmHgAV meanP.37 mmHgAV Vmax: | | 1.24 m/Brenton Vmean: 0.86 m/Brenton VTI: 33.73 cmAVA Vmax: 1.92 cm2AVA (VTI): 1.95 | | ik5GDHC Vmax: 0.00 cm2/m2AVAI (VTI): 0.00 cm2/m2LVCI Dopp: 1.81 l/wpwn0FDFL Dopp: | | 3.19 l/minHR: 48.32 BPMLVOT [...] | | 22.27 mmHgTR Vmax: 2.35 m/s Ripper Operator: Authenticated by: Miky Gill | | Date/Time: 08-22-2018 [...] |TR Vmax: 2.35 m/s | | | |Ripper Operator: | |Authenticated by: Miky Alamo | |Report [...] + + | Historically converted procedure from [facility] environment | EXTERNAL LAB | + + + + +---------+ + + | Performing | Address | City/State/Zipcode | Phone Number | | Organization | | | | + +---------+ + + | EXTERNAL LAB | | | | + +---------+ + + External Lab: [place] (08/22/2018 6:34 [...] | | | Basophils | performed at [facility];[address] | K/uL | LAB | | | | [address];[place], [place] | | | | | | [address] | | | | + + + [...] EXTERNAL | | | | performed at [facility];[address] | | LAB | | | | [address];[place], [place] | | | | | | [address] | | | | + + + [...] EXTERNAL | | | | performed at [facility];[address] | | LAB | | | | [address];[place] | | | | | | [address] | | | | + + + [...] | | | | | performed at [facility] | | | | | | [facility];[place], [place] | | | | | | [address] | | | | + + + [...] infiltrate | | | Signed by: Chey Cruz Dwane Sign Date/Time: 08/21/2018 10:28 PM | | [...] most advanced at C5-6.Signed by: Chey Dorantes, [facility] Date/Time: | | 08/21/2018 5:52 PM | [...] EXTERNAL | | | | performed at [facility];[address] | mmol/L | LAB | | | | [address];[place], [place] | | | | | | [address] | | | | + + + [...] | | | Estimate | performed at [facility];[address] | | LAB | | | | [address];[place] | | | | | | [address] | | | | + + + [...] EXTERNAL | | | | performed at [facility];[address] | mmol/L | LAB | | | | [address];[place] | | | | | | [address] | | | | + + + [...] | | | | | | MDRD IDOK traceable | | | | | | equation.Testing | | | | | | performed at [facility];[address] | | | | | | [facility];[place], [place] | | | | | | [address] | | | | + + + [...] Procedure Note | + + | Victor Hugo Rad Conversion - 11/10/2018 7:55 PM PDT [...]
--- OUTSIDE RECORDS SUMMARY | ~2019-07-26 | XMS | Encounter Summary ---
Demographics + + + | Address | [address] | | | [place] [address] | + + + | Home Phone [...] [place] | | | | | [address] | | + + + + + Care Team Providers + +------+ + | Care Area Attendant Name | Role | Phone | [...] [id number] | | | | | | [place], [place] | | | | | | [address] | | | | | | [phone] | | | +--------+ + + + [...] DEPARTMENT OF | [address] | [place] [address] | | | PATHOLOGY | [address] | | | + + + + + | [facility] DEPARTMENT OF | [address] | [place] [address] | | | PATHOLOGY | [address] [...] Performed At | + + + | [id number] Estimated GFR > 60 mL/min/1.73 sq m if non- | [facility] | | [id number] Estimated GFR > 60 mL/min/1.73 sq m [...] | [facility] | [address] | [place] [address] | | | PATHOLOGY | [address] | | | + + + + + | [facility] | [address] | [place] [address] | | | PATHOLOGY | [address] [...] | + + + + + | [facility] DEPARTMENT OF | [address] | [place] [address] | | | PATHOLOGY | [address] | | | + + + + + | [facility] DEPARTMENT OF | [address] | [place] [address] | | | PATHOLOGY | [address] | | | + + + + + documented in this encounter Visit Diagnoses Not on filedocumented in this encounter"
--- OUTSIDE RECORDS SUMMARY | ~2019-07-26 | XMS | Encounter Summary ---
Demographics + + + | Address | BAD ADDRESS | | | [place] [address] | + + + | Home Phone | | + + + | Preferred Language | Unknown | + + + | Marital Status | | + + + | Amish Affiliation | 1077 | + + + | Race | Unknown | + + + | Ethnic Group | Unknown | + + + Author + + + | Author | [facility] | | | and [place] | + + + | Organization | [facility] [...] | | | | | [place] [address] | | + + + + + | Najma Krishnamurthy | ECON | Unknown | | + + + + + | Hector Mack | ECON | [address] | | | | | [place] | | | | | [address] | | + + + + + | Najma Sanches | ECON | Unknown | | + + + + + Care Team Providers + +------+ + | Care Chemistry Professor Name | Role | Phone | + +------+ + PCP | Unavailable | + +------+ + Encounter Details +--------+ + + + + | Date | Type | Department | Care Team | Description | +--------+ + + + + | 05/17/ | Hospital | [facility] | | | | 1993 | Encounter | MED CTR EMERGENCY | | | | | | CENTER [address] | | | | | | [place] | | | | | | [address] | | | | | | [phone] | | | +--------+ + + + [...]
--- OUTSIDE RECORDS SUMMARY | ~2019-07-26 | XMS | Encounter Summary ---
Demographics + + + | Address | BAD ADDRESS | | | [place] [address] | + + + | Home Phone [...] | Author | [facility] | | | and [place] | + + + | Organization | [facility] [...] | | | | | [place] [address] | | + + + + + | Najma Krishnamurthy | ECON | Unknown | | + + + + + | Hector Mack | ECON | [address] | | | | | [place] | | | | | [address] | | + + + + + [...] + + | 01/16/ | Hospital | [facility] | | | | 2000 | Encounter | MED CTR XRAY [address] | | | | | | [address] | | | | | | [place] [address] | | | | | | [phone] | | | +--------+ + + + [...]
--- OUTSIDE RECORDS SUMMARY | ~2019-07-26 | XMS | Encounter Summary ---
Demographics + + + | Address | BAD ADDRESS | | | [place] [address] | + + + | Home Phone [...] | Author | [facility] | | | and [place] | + + + | Organization | [facility] | | | and [place] | + + + | Address | Unknown | + + + | Phone | Unavailable | + + + Support + + + + + | Name | Relationship | Address | Phone | + + + + + | Hector Mack | ECON | [address] | | | | | [place] [address] | | + + + + + | Najma Krishnamurthy | ECON | Unknown | | + + + + + | Hector Mack | ECON | [address] | | | | | [place] | | | | | [address] | | + + + + + | Najma Sanches | ECON | Unknown | | + + + + + Care Team Providers + +------+ + | Care Porcelain Enamel Repairer Name | Role | Phone | + +------+ + PCP | Unavailable | + +------+ + Encounter Details +--------+ + + + + | Date | Type | Department | Care Team | Description | +--------+ + + + + | 11/28/ | Hospital | [facility] | Pramod Enriquez MD | | | 1998 - | Encounter | MED CTR ICU [address] | [address] | | | | | [place], | [place], [place] | | | 11/29/ | | [place] [address] | [address] | | | 1998 | | [phone] | | | +--------+ + + + [...]
--- OUTSIDE RECORDS SUMMARY | ~2019-07-26 | XMS | Encounter Summary ---
Demographics + + + | Address | BAD ADDRESS | | | [place] [address] | + + + | Home Phone [...] Author | [facility] | | | and [place] | + + + | Organization | [facility] | | [...] | | | | | [place] [address] | | + + + + + | Najma Krishnamurthy | ECON | Unknown | | + + + + + | Hector Mack | ECON | [address] | | | | | [place] | | | | | [address] | | + + + + + | Najma Sanches | ECON | Unknown | | + + + + + Care Team Providers + +------+ + | Care Fashion Patternmaker Name | Role | Phone | + +------+ + PCP | Unavailable | + +------+ + Encounter Details +--------+ + + + + | Date | Type | Department | Care Team | Description | +--------+ + + + + | 04/05/ | Hospital | [facility] | | | | 1996 - | Encounter | MED CTR MED ONC | | | | | | [address] | | | | 04/09/ | | [place] [address] | | | | 1996 | | [phone] | | | +--------+ + + + [...]
--- OUTSIDE RECORDS SUMMARY | ~2019-07-26 | XMS | Encounter Summary ---
Demographics + + + | Address | [address] | | | [place] [address] | + + + | Home Phone [...] [place] | | | | | [address] | | + + + + + Care Team Providers + +------+ + | Care Insurance Policy Clerk Name | Role | Phone | [...] Isaiah | | | | | at [facility] | [facility] | | | | | [address] | [place] [address] | | | | | [address] | | | | | | [place], [address] [place] [address] | | | | | | [place], [place] | | | | | | [address] | | | | | | [phone] | | | +--------+ + + + [...] view image for the detailed interpretation from [facility] results. | CARDIOLOGY | + + + + + + + + | Performing | Address | City/State/Zipcode | Phone Number | | Organization | | | | + + + + + | [facility] | [address] | [place], [place] | | | CARDIOLOGY | [facility] | [address] | | + + + + + documented in this encounter Visit Diagnoses Not on filedocumented in this encounter"
--- OUTSIDE RECORDS SUMMARY | ~2019-07-26 | XMS | Encounter Summary ---
Demographics + + + | Address | BAD ADDRESS | | | [place] [address] | + + + | Home Phone | | + + + | Preferred Language | Unknown | + + + | Marital Status | | + + + | Orthodox Affiliation | 1077 | + + + | Race | Unknown | + + + | Ethnic Group | Unknown | + + + Author + + + | Author | [facility] | | | and [place] | + + + | Organization | [facility] | | | and [place] | + + + | Address | Unknown | + + + | Phone | Unavailable | + + + Support + + + + + | Name | Relationship | Address | Phone | + + + + + | Hector Mack | ECON | [address] | | | | | [place] [address] | | + + + + + | Najma Krishnamurthy | ECON | Unknown | | + + + + + | Hector Mack | ECON | [address] | | | | | [place] | | | | | [address] | | + + + + + | Najma Sanches | ECON | Unknown | | + + + + + Care Team Providers + +------+ + | Care Filter Tank Tender Name | Role | Phone | + +------+ + PCP | Unavailable | + +------+ + Encounter Details +--------+ + + + + | Date | Type | Department | Care Team | Description | +--------+ + + + + | 01/24/ | Hospital | [facility] | | | | 1997 - | Encounter | MED CTR MED ONC | | | | | | [address] | | | | 01/27/ | | [place] [address] | | | | 1997 | | [phone] | | | +--------+ + + + [...]
--- OUTSIDE RECORDS SUMMARY | ~2019-07-26 | XMS | Encounter Summary ---
Demographics + + + | Address | [address] | | | [place] [address] | + + + | Home Phone [...] [place] | | | | | [address] | | + + + + + Care Team Providers + +------+ + | Care Cobol Programmer Name | Role | Phone | [...] | | | | | | [place] [address] | | | +--------+ + + + [...] | + + | 02/06/2006 11:[address] [facility] Anesthesia PostOp Report | | | | Patient: GERMAINE CARIAS [facility] Rec: [id number] Sex F Bdate: 1945 | | Date/Time Data | | Entered Into [facility] | | Anesth PostOp | | Surgery Date [id number] 02/06/06 11:10 | | Anesthesiologist OLEG ASCENCIO 02/06/06 11:10 | | Resident Anesthesiolog JULIEN FRYE 02/06/06 11:10 | | | + + documented in this encounter Visit Diagnoses Not on filedocumented in this encounter"
--- OUTSIDE RECORDS SUMMARY | ~2019-07-26 | XMS | Encounter Summary ---
Demographics + + + | Address | [address] [place] [address] | | | [place] [address] | + + + | Home Phone [...] [place] | | | | | [address] | | + + + + + Care Team Providers + +------+ + | Care Webmethods Consultant Name | Role | Phone | [...] | | | | Mailcode: CH10U | [place], [place] | | | | | [facility] | [address] | | | | | and [place], | [phone] | | | | | [facility] | | | | | | Floor [place], [place] | | | | | | [address] | | | | | | [phone] | | | +--------+---------+ + + + [...] 1 Years of Education: N/A Occupational History [employer] Social History Main Topics Tobacco Use: Quit [...] [facility] | [address] | [place], [place] | | | [facility] PO[facility] CARE | [address] | [address] | | | TESTS | | | | + + + + + | [facility] | [address] | [place], [place] | | | TESTS | [address] | [address] | | + + + + + documented in this encounter Visit Diagnoses + + | Diagnosis | + + | Urolithiasis - Primary Urinary calculus, unspecified | + + documented in this encounter"
--- OUTSIDE RECORDS SUMMARY | ~2019-07-26 | XMS | Encounter Summary ---
Demographics + + + | Address | [address] | | | [place] [address] | + + + | Home Phone [...] [place] | | | | | [address] | | + + + + + Care Team Providers + +------+ + | Care Menhaden Vessel Pilot Name | Role | Phone | + [...] | | | | CONSULT TO | [place], [place] | [facility] | | [facility] | [facility] [place] [facility] | [address] | Health and | | | | | [place] | | Healing | | | | | REDUCTION | | Building [address], | | | | | OF LARGE | | 5th Floor | | | | | BREAST | | [place], [place] | | | | | Procedure to | | [address] | | | | | be | | Phone: | | | | | performed: | | [phone] | | | | | breast | [...] | | | | | | | ([phone]) and | | | | | | | Reduction of | | | | | | | large | | | | | | | breast | | | | | | | ([address]) | | | +--------+--------+ + + + + Encounter Details +--------+---------+ + + + | Date | Type | Department | Care Team | Description | +--------+---------+ + + + | 02/18/ | Office | Plastic and | Gia Amin, | Panniculitis | | 2006 | Visit | Reconstructive | MD [address] | (Primary Dx) | | | | Surgery at [facility] [address] | [place], [place] | | | | | [facility] | [address] | | | | | for Health and | [phone] | | | | | [facility], | | | | | | 5th Floor [place], | | | | | | [place] [address] | | | | | | [phone] | | | +--------+---------+ + + + [...] from yosvany hernández. MASTOPEXY/ABDOMINOPLASTY CONSULT Subjective: Germaine Heard comes in today interested in a cosmetic [...] 18 years ago Occupation: unemployed, lives in [place] Family History Problem Relation Heart Mother Diabetes [...] across low er abdomen Assessment : Germaine Channett would likely benefit from an abdominoplasty and [...] per side. Plan: --Patient will followup with cognos bi developer, who will re-evaluate her rash prior to proceedi ng with breast surgery. Requested that derm forward their note to us. --Our senior power scheduler will provide the patient with a [...]
--- OUTSIDE RECORDS SUMMARY | ~2019-07-26 | XMS | Encounter Summary ---
Demographics + + + | Address | BAD ADDRESS | | | [place] [address] | + + + | Home Phone [...] | Author | [facility] | | | and [place] | + + + | Organization | [facility] | | | and [...] | | | | | [place] [address] | | + + + + + | Najma Krishnamurthy | ECON | Unknown | | + + + + + | Hector Mack | ECON | [address] | | | | | [place] | | | | | [address] | | + + + + + | Najma Sanches | ECON | Unknown | | + + + + + Care Team Providers + +------+ + | Care Numerical Control Machine Machinist Name | Role | Phone | + +------+ + PCP | Unavailable | + +------+ + Encounter Details +--------+ + + + + | Date | Type | Department | Care Team | Description | +--------+ + + + + | 07/07/ | Hospital | [facility] | Isaias Ramirez, | | | 1996 | Encounter | MED CTR XRAY [address] | MD [address] [facility] | | | | | [place] | [place] | | | | | [place] [address] | [id number] | | | | | [phone] | | | +--------+ + + + [...]
--- OUTSIDE RECORDS SUMMARY | ~2019-07-26 | XMS | Encounter Summary ---
Demographics + + + | Address | [address] | | | [place] [address] | + + + | Home Phone [...] [place] | | | | | [address] | | + + + + + Care Team Providers + +------+ + | Care Av Specialist Name | Role | Phone | [...] | | | | CONSULT TO | [place], [place] | [facility] | [facility] | [address] | Health and | | | | | SKIN [facility] | | Healing | | | | | REDUCTION | | Building [address], | | | | | OF LARGE | | 5th Floor | | | | | BREAST | | [place], [place] | | | | | Procedure to | | [address] | | | | | be | | Phone: | | | | | performed: | | [phone] | | | | | breast | [...] | | | | | | | ([phone]) and | | | | | | | Reduction of | | | | | | | large | | | | | | | breast | | | | | | | ([phone]) | | | +--------+--------+ + + + + Encounter Details +--------+---------+ + + + | Date | Type | Department | Care Team | Description | +--------+---------+ + + + | 02/18/ | Office | Plastic and | Gia Amin, | Panniculitis | | 2006 | Visit | Reconstructive | MD [address] | (Primary Dx) | | | | Surgery at [facility] [address] | [place], [place] | | | | | [facility] | [address] | | | | | for Health and | [phone] | | | | | [facility], | | | | | | 5th Floor [place], | | | | | | [place] [address] | | | | | | [phone] | | | +--------+---------+ + + + [...] 18 years ago Occupation: unemployed, lives in [place] Family History Problem Relation Heart Mother Diabetes [...] per side. Plan: --Patient will followup with pediatric dermatologist, who will re-evaluate her rash prior to proceedi ng with breast surgery. Requested that derm forward their note to us. --Our group rooms coordinator will provide the patient with a key [...]
--- OUTSIDE RECORDS SUMMARY | ~2019-07-26 | XMS | Encounter Summary ---
Demographics + + + | Address | BAD ADDRESS | | | [place] [address] | + + + | Home Phone [...] | Author | [facility] | | | and [place] | + + + | Organization | 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 | | | JENNI | | | BARNET | | | T, | | | GERMAINE | | | D?MRN: | | | | | | [id number] | | | [id number] | | | ecurit | | | [...] | | | St. | | | [place] | | | y | | | [...] | | | [phone] | | | [phone] | | | .These | | | [...] | | | St. | | | [place] | | | y H. | | [...] | | | St. | | | [place] | | | y H. | | [...] | | | St. | | | [place] | | | y H. | | [...] | | | St. | | | [place] | | | y H. | | [...] | | | St. | | | [place] | | | y | | | [...] + + | [facility] | [address] | [place] | [phone] | | HOSPITAL [facility] | | [address] | | + + + + + [...] - 1.030 | [facility] | | | [place], | | | [facility] | | | [...] + + | [facility] | [address] | [place] | [phone] | | HOSPITAL [facility] | | [address] | | + + + + + [...] + + | [facility] | [address] | [place] | [phone] | | HOSPITAL LAB[facility]ORY | | [address] | | + + + + + [...] | mL/min/1.73m2 | [facility] | | | HONDURAN | RATE,ESTIMATED | | HOSPITAL | | | | mL/min/1.97o1Qxcm than | | LABORATORY | | | [...] + + | [facility] | [address] | [place] | [phone] | | HOSPITAL LAB[facility]ORY | | [address] | | + + + + + [...] - 0.01 | [facility] | | | Ad | | K/DEMI | [facility] | | | | | | HOSPITAL [...] + + | [facility] | [address] | [place] | [phone] | | HOSPITAL LAB[facility]ATORY | | [address] | | + + + + + documented in this encounter Visit Diagnoses + + | Diagnosis | + + | Feared condition not demonstrated - Primary Person with feared complaint in whom no | | diagnosis was made | + + documented in this encounter
--- OUTSIDE RECORDS SUMMARY | ~2019-07-26 | XMS | Encounter Summary ---
Demographics + + + | Address | [address] | | | [place] [address] | + + + | Home Phone [...] [place] | | | | | [address] | | + + + + + Care Team Providers + +------+ + | Care Sustainability Director Name | Role | Phone | [...] | | Loop Mailcode: | [address] [place], | | | | | [address] [facility] | [place] [address] | | | | | [facility] [address] | [phone] | | | | | [place], [place] | | | | | | [address] | | | | | | [phone] | | | +--------+---------+ + + + [...] cardiac problems. She smoked, has about a 05-oswr-qxet smoking history but has not smoked in [...]
--- OUTSIDE RECORDS SUMMARY | ~2019-07-26 | XMS | Encounter Summary ---
Demographics + + + | Address | BAD ADDRESS | | | [place] [address] | + + + | Home Phone [...] | Author | [facility] | | | and [place] | + + + | Organization | [facility] | | | and [place] | + + + | Address | Unknown | + + + | Phone | Unavailable | + + + Support + + + + + | Name | Relationship | Address | Phone | + + + + + | Hector Blankenship | ECON | [address] | | | | | [place] [address] | | + + + + + | Najma Krishnamurthy | ECON | Unknown | | + + + + + | Hector Blankenship | ECON | [address] | | | | | [place] | | | | | [address] | | + + + + + | Najma Sanches | ECON | Unknown | | + + + + + Care Team Providers + +------+ + | Care Bobbin Fixer Name | Role | Phone | + +------+ + | Tuan Chan MD | PCP | | + +------+ + Encounter Details +--------+ + + + + | Date | Type | Department | Care Team | Description | +--------+ + + + + | 08/21/ | Hospital | [facility] | Raphael Durán, | Seizure (HCC); Acute | | 2019 - | Encounter | [facility] | MD Brionna PRUETT | cystitis without | | | | CARE FLOOR [address] | [address] | hematuria; History | | 08/27/ | | [address] | [address] | of stroke | | 2019 | | [place], [place] | | | | | | [address] | | | | | | [phone] | | | +--------+ + + + [...] Summaries by Noe Bolton MD at 08/27/18 1308 Author: Noe Bolton MD Service: Hospitalist Author Type: Physician Filed: 08/28/18 2241 Date of Service: 08/27/181302 Status: Signed Sign Shop Supervisor: Noe Bolton MD (Physician) [facility] Service: Hospitalist Physician Discharge Summary Patient ID: Germaine Blankenship 1945 72 y.o. Admit date: 08/21/2018 Discharge date: 08/27/2018 Admitting Physician: aRphael Durán MD Discharge Physician: Noe Bolton MD [...] 6 months ago who was transferred from [facility] because of new onset seizures. She had one episode at home described to be generalized tonic-clonic lasting for 5 minutes with postictal state. In the emergency ro om, she had another witnessed 5-minute tonic-clonic movement. She was loaded with Keppra IV and was given Ativan prior to transfer to [facility]. She is here for further neurologic evalu ate. Of note, the patient was also diagnosed to have UTI and was started on ceftriaxone damain or to transfer to [facility]. According to the daughter, patient has [...] t on 08/25/2018. Patient was admitted to [facility] with diagnosis of new onset of seizures. [...] on 08/27/2018. Patient was trans ferred to [facility] for further rehab therapy. Additional issues: 1. [...] patient with destination the pharmacy being in [place]. 3. Chronic type II odontoid fracture . [...] RCA COPD (chronic obstructive pulmonary disease) ([facility]) Hydronephrosis of right kidney Hyperlipidemia Hypertension many years Kidney disease OR (myocardial infarction) ([facility]) 09/05/2012 NSTEMI Morbid obesity ([facility]) weighed over 500 lbs prior to bariatric surgery, lost > 300 lbs Recurrent nephrolithiasis S/P CABG x 4 1998 occluded SVG>RCA; patent CASAS>LAD, patent "Y" seq SVG>D1>OM2 (cath 09/10) S/P PTCA (percutaneous transluminal coronary angioplasty) 3.5x16, 2.75x32 Taxus TRAVIS mid-distal LCx (07/16/03) // 2.5x12 Promus Element TRAVIS R PDA, 3.5 x15 Promus Element TRAVIS distal RCA (09/05/12) Stroke ([facility]) 2013 Right-sided, left facial droop - resolved; mild residual memory deficit Type II diabetes mellitus ([facility]) resolved with weight loss following bariatric surgery [...] Name: GERMAINE BARBOUR Date of : 1945 [facility] Physician: Miky Alamo ____ INDICATIONS Abnormal [...] TR maxP.27 mmHg TR Vmax: 2.35 m/s Portable Track Line Marker: Authenticated by: Miky Mohrilion Report Date/Time: 08-22-2018 14:3 8:8 1. The [...] 08/22/18 0634 MG 2.0 1.8 1.6* Disposition: [facility] Follow up: Tuan Chan MD [address] [facility] [id number] Schedule an appointment as soon as possible for a visit For hospitalization re-evaluation ; and further management of short-term memory problems am loree others. Tash Herzog MD [address] [place] [address] [place] [address] Schedule an appointment as soon as [...] These medications were sent to [facility] [facility] [place] [facility] [address] [facility] [address] [facility] [address] albuterol 108 (90 Base) MCG/ACT inhaler atorvastatin [...] 08/27/182022 Date of Service: 08/27/181458 Status: Signed Sign Shop Supervisor: Lisa Lorenzana RN (Registered Nurse) No significant changes from shift assessment. No falls or new signs of skin breakdown. No c omplaints of pain, nausea or SOB. VSS for remainder of shift. WCM End of shift chart check done. Report called to Munira GARDUNO at [place]. IV removed. Transportation arrived. onver gris Transaction, Provider Unknown - 08/27/2018 2:59 PM PDT Case Management by Maria Del Rosario Dorado RN at 08/27/18 7245 Author: Maria Del Rosario Dorado RN Service: (none) Author Type: Registered Nurse Filed: 08/27/18 1539 Date of Service: 08/27/18 6269 Status: Signed Sign Shop Supervisor: Maria Del Rosario Dorado RN (Registered Nurse) Disposition: [facility] Transportation: [place] transport[place]-[facility] All orders, signed AVS, and prescriptions have been faxed: faxed to Ester @ [facility] [place] paperwork completed Patient and family in agreement with discharge plan Medicare important message (Given or N/A): given Liz Dorado RN,BSN,CM onver gris Transaction, Provider Unknown - 08/27/2018 10:21 AM PDT Therapy Progress Note by Lalo Epstein PTA at 08/27/18 1021 Author: Lalo Epstein PTA Service: (none) Author Type: Machine Puller Over Filed: 08/27/18 1139 Date of Service: 08/27/18 1021 Status: Signed Sign Shop Supervisor: Lalo Epstein PTA (Machine Puller Over) PHYSICAL THERAPY TREATMENT NOTE PT Received On: 08/27/18 Reason for Treatment: Other (comment) (Fall) Requires PT Follow Up: Yes Recommendations: Other (comment), [facility] (memory care facility) Plan Treatment/Interventions: Continue per Primary PT POC Progress: Progressing toward goals Summary Comments: Pt in room with nursing when HRIS ANALYST arrives, agreeable to therapy. Therapy focused o n increasing activity tolerance, balance activities, and LE strengthening. When pt had 4WW p laced in front of her, she placed her leg up on the seated and tried to climb on the walker when asked to walk. HRIS ANALYST attempted to have the pt ambulate with 4WW again and determined that it was safer to attempted to ambulate without an AD. Pt demonstrated good stability while a mbulating with BLANCHARD GRINDER OPERATOR. While performing balance activities pt required frequent reminders of wh at she was doing as her confusion increased with activity. Pt was able to perform seated exe rcises with no increase in pain. Pt would benefit from continued therapy focusing on increas ing activity tolerance, balance activities and LE strengthening. Pt finished therapy in [facility] with all needs met. Precautions Other Precautions: Fall precautions, cognition Cognition Overall Cognitive Status: Impaired Orientation Level: Oriented, Disoriented FUNCTIONAL MOBILITY Transfers Sit to/from Stand: Standby assist Ambulation Weight Bearing Status: WBAT RLE, WBAT LLE Maximal Ambulation Distance (feet): 150+150 Total Ambulation Distance (feet): 300 Ambulation Assistance: Standby assist Distance limited by?: Therapist/staff discretion Pattern: Alternating, Decreased rosie Assistive Device: Other (Comment) (BLANCHARD GRINDER OPERATOR) BALANCE High Level Balance Side Stepping: Right, [...] Note by Camila Anglin RN at 08/26/18 5464 Author: Camila Anglin RN Service: (none) Author Type: Registered Nurse Filed: 08/26/181815 Date of Service: 08/26/181815 Status: Signed Sign Shop Supervisor: Camila Anglin RN (Registered Nurse) Chart audit complete. onver gris Transaction, Provider Unknown - 08/26/2018 4:15 PM PDT Case Management by Maria Del Rosario Dorado RN at 08/26/18 161 Author: Maria Del Rosario Dorado RN Service: (none) Author Type: Registered Nurse Filed: 08/26/18 1616 Date of Service: 08/26/181614 Status: Signed Sign Shop Supervisor: Maria Del Rosario Dorado RN (Registered Nurse) CM informed Ester @ [facility] that pt is NMR for discharge today. CM to f/u tomorro w. onver gris Transaction, Provider Unknown - 08/26/2018 11:43 AM PDT Nurse Progress Note by Bear Russell RN at 08/26/18 1143 Author: Bear Russell RN Service: (none) Author Type: Registered Nurse Filed: 08/26/18 1144 Date of Service: 08/26/18 1143 Status: Signed Sign Shop Supervisor: Bear Russell RN (Registered Nurse) Report given to SHAAN Jensen who will assume care of this patient. onver gris Transaction, Provider Unknown - 08/26/2018 11:30 AM PDT Pharmacy Note by Jen Vargas RPH at 08/26/18 1130 Author: Jen Vargas RPH Service: Pharmacy Author Type: Pharmacist Filed: 08/26/18 1132 Date of Service: 08/26/18 1130 Status: Signed Sign Shop Supervisor: Jen Vargas RPH (Pharmacist) Antimicrobial Stewardship Team [...] ceftriaxone therapy which was sta rted at [facility] for UTI. Unsure if cultures [...] 08/26/182124 Date of Service: 08/26/18811 Status: Addendum Sign Shop Supervisor: Noe Bolton MD (Physician) Related Notes: Original Note by Noe Bolton MD (Physician) filed at 08/26/182124 [facility] Service: Hospitalist Progress Note Pt: Germaine Blankenship AGE/SEX: 72 y.o. female : 1945 ROOM: 4465/4465-1 " Patient Summary: 72-year-old female with history of hypertension, hyperlipidemia, coronar y artery disease a status post CABG x4, history of alcohol abuse, history of drug use, histo ry of nephrolithiasis, history of recent stroke 6 months ago who was transferred from [facility] because of new onset seizures. She had one episode at home described to be generalized tonic-clonic lasting for 5 minutes with postictal state. In the emergency ro om, she had another witnessed 5-minute tonic-clonic movement. She was loaded with Keppra IV and was given Ativan prior to transfer to [facility]. She is here for further neurologic evalu ate. Of note, the patient was also diagnosed to have UTI and was started on ceftriaxone damian or to transfer to [facility]. According to the daughter, patient has [...] TR maxP.27 mmHg TR Vmax: 2.35 m/s Portable Track Line Marker: Authenticated by: Miky Alamo Report Date/Time: 08-22-2018 [...] RCA COPD (chronic obstructive pulmonary disease) ([facility]) Hydronephrosis of right kidney Hyperlipidemia Hypertension many years Kidney disease OR (myocardial infarction) ([facility]) 09/05/2012 NSTEMI Morbid obesity ([facility]) weighed over 500 lbs prior to bariatric surgery, lost > 300 lbs Recurrent nephrolithiasis S/P CABG x 4 1998 occluded SVG>RCA; patent CASAS>LAD, patent "Y" seq SVG>D1>OM2 (cath 09/10) S/P PTCA (percutaneous transluminal coronary angioplasty) 3.5x16, 2.75x32 Taxus TRAVIS mid-distal LCx (07/16/03) // 2.5x12 Promus Element TRAVIS R PDA, 3.5 x15 Promus Element TRAVIS distal RCA (09/05/12) Stroke ([facility]) 2013 Right-sided, left facial droop - resolved; mild residual memory deficit Type II diabetes mellitus ([facility]) resolved with weight loss following bariatric surgery [...] LIST Principal Problem: New onset seizure ([facility]) Active Problems: HTN (hypertension) CAD (coronary artery disease) S/P CABG x 4 Hyperlipidemia ASSESSMENT & PLAN 72-year-old female with the followin. New onset seizures. Recurrent episodes of seizure after admission. No further seizure s reported after Keppra has been increased to 750 mg p.o. twice daily as recommended by neur ology business management consultant. -Continue seizure precautions. Follow-up with neurology [...] 08/26/18604 Date of Service: 08/26/18603 Status: Signed Sign Shop Supervisor: Brennan Rosa RN (Registered Nurse) Pt remains [...] 08/25/181813 Date of Service: 08/25/181810 Status: Signed Sign Shop Supervisor: Bear Russell RN (Registered Nurse) Pt continues [...] Date of Service: 08/25/18 1556 Status: Signed Sign Shop Supervisor: Neo Guerrero PT (Physical Therapist) PHYSICAL THERAPY [...] Management by Lakshmi Bradshaw RN at 08/25/18 5884 Author: Lakshmi Bradshaw RN Service: (none) Author Type: Registered Nurse Filed: 08/25/18 1225 Date of Service: 08/25/18 1204 Status: Signed Sign Shop Supervisor: Lakshmi Bradshaw RN (Registered Nurse) Spoke with patient, daughter, and son-in-law who state pt will need to discharge to [facility] in [place], referral sent. Requested a cog eval for baseline, suggested if pt's husba nd no longer wants to be involved in her care that a POA for HC and Finances be established and documented through a public works inspector. currently has pt's Medicaid card, daughter will [...] 1015 Date of Service: 08/25/18902 Status: Signed Sign Shop Supervisor: Miky Alamo MD (Physician) [facility] Service: Cardiology Progress Note Name of Comber Tender: Miky Alamo MD I have seen the [...] 08/25/182100 Date of Service: 08/25/18830 Status: Signed Sign Shop Supervisor: Noe Bolton MD (Physician) [facility] Service: Hospitalist Progress Note Pt: Germaine Jesus Jenni Blankenship AGE/SEX: 72 y.o. female : 1945 ROOM: [facility] " Patient Summary: 72-year-old female with history of hypertension, hyperlipidemia, coronar y artery disease a status post CABG x4, history of alcohol abuse, history of drug use, histo ry of nephrolithiasis, history of recent stroke 6 months ago who was transferred from [facility] because of new onset seizures. She had one episode at home described to be generalized tonic-clonic lasting for 5 minutes with postictal state. In the emergency ro om, she had another witnessed 5-minute tonic-clonic movement. She was loaded with Keppra IV and was given Ativan prior to transfer to [facility]. She is here for further neurologic evalu ate. Of note, the patient was also diagnosed to have UTI and was started on ceftriaxone damian or to transfer to [facility]. According to the daughter, patient has [...] report and is used for image stora S[employer]ethe[facility] only X-ray Hip 2 View Right Result [...] radiologist report and is used for image Slingj[facility] [employer] only Echo Cardiac Adult Complete Result Date: [...] TR maxP.27 mmHg TR Vmax: 2.35 m/s Portable Track Line Marker: Authenticated by: Miky Alamo Report Date/Time: 08-22-2018 [...] RCA COPD (chronic obstructive pulmonary disease) ([facility]) Hydronephrosis of right kidney Hyperlipidemia Hypertension many years Kidney disease OR (myocardial infarction) ([facility]) 09/05/2012 NSTEMI Morbid obesity (HCC) weighed over [...] UTI. Continue ceftriaxone. Review urine cultures from [facility]. 7. Hypokalemia this resolved. 8. Atrial fibrillation [...] 015 Date of Service: 08/25/18146 Status: Signed Sign Shop Supervisor: Hamida Mccann RN (Registered Nurse) Pt. Impulsive, does well distraction coloring and watching movies, sponge bath pt. washed u p while sitting in chair. Chart review completed onver gris Transaction, Provider Unknown - 08/24/2018 5:39 PM PDT Nurse Progress Note by Radhames Armando RN at 08/24/18 0688 Author: Radhames Armando RN Service: (none) Author Type: Registered Nurse Filed: 08/24/18 174 Date of Service: 08/24/18 714 Status: Signed Sign Shop Supervisor: Radhames Armando RN (Registered Nurse) Patient impulsive [...] Service: Neurology Author Type: Physician Filed: 08/24/18 6365 Date of Service: 08/24/181208 Status: Signed Sign Shop Supervisor: Tash Herzog MD (Physician) [facility] Service: Neurology Progress Note Hospital Day: [...] ? Patient was initially see n at [facility] [place], reportedly had a grand mal seizure at [...] Service: Cardiology Author Type: Physician Filed: 08/24/18 1108 Date of Service: 08/24/18 1052 Status: Signed Sign Shop Supervisor: Miky Alamo MD (Physician) [facility] Service: Cardiology Progress Note Name of Comber Tender: Miky Alamo MD I have seen the [...] 0917 Date of Service: 08/24/18724 Status: Signed Sign Shop Supervisor: Jeremías Diop MD (Physician) [facility] Service: Hospitalist Progress Note Hospital Day: LOS: 3 days SUBJECTIVE Patient Summary: 72-year-old female with history of hypertension, hyperlipidemia, joss nary artery disease a status post CABG x4, history of alcohol abuse, history of drug use, hi story of nephrolithiasis, history of recent stroke 6 months ago who was transferred from [facility] because of new onset seizures. She had one episode at home described to be generalized tonic-clonic lasting for 5 minutes with postictal state. In the emergency room, she had another witnessed 5-minute tonic-clonic movement. She was loaded with Keppra IV and was given Ativan prior to transfer to [facility]. She is here for further neurologic ev aluate. Of note, the patient was also diagnosed to have UTI and was started on ceftriaxone prior to transfer to [facility]. According to the daughter, patient has not been seen by her regular primary care phys ician for the past 1 and half years. Reportedly, she had a stroke 6 months ago and since, h as been having progressive functional decline. [facility] eventually [facility] this. [...] Continue ceftriaxone. Will follow-up urine culture from [facility]. Requests have been sent 08/23/2009. Hypokalemia Potassium [...] Disposition: Inpatient. Code Status: DNR/DNI Dictation and bass singer or software, [employer], used which may contain error for similar [...] Date of Service: 08/24/18 0655 Status: Signed Sign Shop Supervisor: Aura Boateng RN (Registered Nurse) Oriented to [...] 08/23/181855 Date of Service: 08/23/181854 Status: Signed Sign Shop Supervisor: Talita Brock RN (Registered Nurse) End of shift chart check complete. onver gris Transaction, Provider Unknown - 08/23/2018 6:39 PM PDT Nurse Progress Note by Talita Brock RN at 08/23/181838 Author: Talita Brock RN Service: (none) Author Type: Registered Nurse Filed: 08/23/181843 Date of Service: 08/23/181838 Status: Signed Sign Shop Supervisor: Talita Brock RN (Registered Nurse) 1830 Called [...] Notes by Jeremías Diop MD at 08/23/18 0966 Author: Jeremías Diop MD Service: Hospitalist Author Type: Physician Filed: 08/23/18 6292 Date of Service: 08/23/18942 Status: Addendum Sign Shop Supervisor: Jeremías Diop MD (Physician) Related Notes: Original Note by Jeremías Diop MD (Physician) filed at 08/23/18 1533 [facility] Service: Hospitalist Progress Note Hospital Day: LOS: 2 days SUBJECTIVE Patient Summary: 72-year-old female with history of hypertension, hyperlipidemia, joss nary artery disease a status post CABG x4, history of alcohol abuse, history of drug use, hi story of nephrolithiasis, history of recent stroke 6 months ago who was transferred from [facility] because of new onset seizures. She had one episode at home described to be generalized tonic-clonic lasting for 5 minutes with postictal state. In the emergency room, she had another witnessed 5-minute tonic-clonic movement. She was loaded with Keppra IV and was given Ativan prior to transfer to [facility]. She is here for further neurologic ev aluate. Of note, the patient was also diagnosed to have UTI and was started on ceftriaxone prior to transfer to [facility]. According to the daughter, patient has [...] Continue ceftriaxone. Will follow-up urine culture from [facility] Requests have been sent. Hypokalemia Potassium replacement [...] Disposition: Inpatient. Code Status: DNR/DNI Dictation and bass singer or software, [employer], used which may contain error for similar s ounding words even after review. Personal communication requested for any clarification. JEREMÍAS DIOP MD 08/23/2018 9:43 AM Miky Escobar MD - 08/23/2018 8:09 AM PDT Progress Notes by Miky Alamo MD at 08/23/18808 Author: Miky Alamo MD Service: Cardiology Author Type: Physician Filed: 08/23/18837 Date of Service: 08/23/18808 Status: Signed Sign Shop Supervisor: Miky Alamo MD (Physician) [facility] Service: Cardiology Progress Note Name of Comber Tender: Miky Alamo MD I have seen the [...] Note by Natalie Castillo RN at 08/23/18 0750 Author: Natalie Castillo RN Service: (none) Author Type: Registered Nurse Filed: 08/23/18 08 Date of Service: 08/23/18752 Status: Signed Sign Shop Supervisor: Natalie Castillo RN (Registered Nurse) Pt SB [...] 115 Date of Service: 08/22/181155 Status: Signed Sign Shop Supervisor: Rhonda An RD (Registered Dietitian) 08/22/18 1141 Subjective Timepoint Admit (pressure injury ) Pt [...] (Mouth to Rectum) On modified diet per LINOLEUM LAYER HELPER. Pt denies chewing or swallowi ng issues. [...] Recommendations Recommended energy needs Continue diet per LINOLEUM LAYER HELPER. House trays. Supplements available if nee ded. [...] 1428 Date of Service: 08/22/18901 Status: Signed Sign Shop Supervisor: Jeremías Diop MD (Physician) [facility] Service: Hospitalist Progress Note Hospital Day: LOS: 1 day SUBJECTIVE Patient Summary: 72-year-old female with history of hypertension, hyperlipidemia, joss nary artery disease a status post CABG x4, history of alcohol abuse, history of drug use, hi story of nephrolithiasis, history of recent stroke 6 months ago who was transferred from [facility] because of new onset seizures. She had one episode at home described to be generalized tonic-clonic lasting for 5 minutes with postictal state. In the emergency room, she had another witnessed 5-minute tonic-clonic movement. She was loaded with Keppra IV and was given Ativan prior to transfer to [facility]. She is here for further neurologic ev aluate. Of note, the patient was also diagnosed to have UTI and was started on ceftriaxone prior to transfer to [facility]. According to the daughter, patient has [...] Continue ceftriaxone. Will follow-up urine culture from [facility]. Hypokalemia Potassium replacement protocol ordered. Atrial fibrillation [...] Disposition: Inpatient. Code Status: DNR/DNI Dictation and bass singer or software, [employer], used which may contain error for similar s ounding words even after review. Personal communication requested for any clarification. JEREMÍAS DIOP MD 08/22/2018 9:02 AM onversion Transactio n, Provider Unknown - 08/22/2018 7:03 AM PDT Nurse Progress Note by Natalie Castillo RN at 08/22/18702 Author: Natalie Castillo RN Service: (none) Author Type: Registered Nurse Filed: 08/22/18799 Date of Service: 08/22/18702 Status: Signed Sign Shop Supervisor: Natalie Castillo RN (Registered Nurse) Pt's HR [...] 08/21/181907 Date of Service: 08/21/181900 Status: Signed Sign Shop Supervisor: Susan Buckner RN (Registered Nurse) Post fall [...] Note by Susan Buckner RN at 08/21/18 4727 Author: Susan Buckner RN Service: (none) Author Type: Registered Nurse Filed: 08/21/18 1606 Date of Service: 08/21/181543 Status: Signed Sign Shop Supervisor: Susan Buckner RN (Registered Nurse) Pt found [...] Management by Blanca Calvert RN at 08/21/18 7977 Author: Blanca Calvert RN Service: (none) Author Type: Registered Nurse Filed: 08/21/18 1141 Date of Service: 08/21/18 115 Status: Signed Sign Shop Supervisor: Blanca Calvert RN (Registered Nurse) Met with pt, daughter and daughter's spouse, daughter answered CM's questions, pt was unabl e to participate. Per daughter pt was only released from [facility], ~ 2 mths ago, she was transferred t here from [facility] after having a stroke, she left [...] mile awar for showers. Pt has a human services case manager Scarlett [phone], who will be back in office on Friday. She is rec eiving caregiving services, she is not sure the number of hours she is receiving. Caregiver s are from [facility]. Per daughter because of her poor living conditions, they has recently found her a [facility], but pt refused, did not want to leave her . They are now in the process of tr sherly to find a place for a couple. She requires assistance with dressing and showering, does not use DME. She takes Plavix daily. She is not participating in outpatient medical services, no home oxygen, cpap, dialysis or home health. 08/21/18 1148 Discharge Planning Evaluation Admitting Diagnosis New onset [...] Care Services Attendant (Receives caregiving services through [facility] [place].) Caregiver after Discharge No Mental Status Unable to answer questions (Daughter answered CM's questions, pt was sleeping.) Power of School Library Media Program Director No Anticipated Discharge Plan Post Acute Care Needs Other (comment) (TBD) Plan communicated to patient/family Yes Resources Financial concerns No Transportation issues No Patient/Family concerns Yes (Daughter and her spouse expressed concern about pt's living conditions.) Prescription Plan Yes Name of Pharmacy [facility] [place] Previous home health equipment No Vascular access device No Ostomy/Drains/Appliances No Anticipated Disposition Facility Type Other (Comment) Pt is a 72 y.o., female Patient's PCP is: Daughter is working on trying to find her a new PCP. Patient's insurance: Medicare/Medicaid [place]. Coverage concerns: None. Medication coverage/concerns: Yes/None. Community resources utilized / needed: [facility] [phone]. Assistance in transportation: TBD. Identification of any specific education / training: None. Barriers to Discharge / Alternative housing needed: Anticipated DCP: TBD pending clinical course. BLANCA CALVERT RN,. onver gris [employer], Provider Unknown - 08/21/2018 9:46 AM PDT Progress Notes by Silas Gomez RPH at 08/21/18945 Author: Silas Gomez RPH Service: Pharmacy Author Type: Pharmacist Filed: 08/21/18945 Date of Service: 08/21/18945 Status: Signed Sign Shop Supervisor: Silas Gomez RPH (Pharmacist) Clinical Pharmacy Note: [...] renal function and adjust accordingly. Silas Gomez [facility] 08/21/2018 9:46 AM Laura Haas Speech Pathologist - 08/21/2018 8:26 AM PDTFormatting of this note might be diff erent from the original. Therapy Progress Note by Laura Cisneros MS CCC-LINOLEUM LAYER HELPER at 08/21/18825 Author: Laura Cisneros MS CCC-LINOLEUM LAYER HELPER Service: (none) Author Type: Speech and Language Pat hologist Filed: 08/21/18826 Date of Service: 08/21/18825 Status: Signed Sign Shop Supervisor: Laura Cisneros MS CCC-LINOLEUM LAYER HELPER (Speech and Language Pathologist) 08/21/18799 LINOLEUM LAYER HELPER Last Visit LINOLEUM LAYER HELPER Received On 08/21/18 Requires LINOLEUM LAYER HELPER Follow Up On hold Attempted, but pt is somnolent and not able to wake for RN. RN to call if she becomes alert and appropriate to participate in evaluation. Laura Cisneros MS CCC-LINOLEUM LAYER HELPER 08/21/18 8:27 AM Jeremías Taveras MD - 08/21/2018 8:00 AM PDT Progress Notes by Jeremías Diop MD at 08/21/18799 Author: Jeremías Diop MD Service: Hospitalist Author Type: Physician Filed: 08/21/18 9183 Date of Service: 08/21/18799 Status: Addendum Sign Shop Supervisor: Jeremías Diop MD (Physician) Related Notes: Original Note by Jeremías Diop MD (Physician) filed at 08/21/18 8646 [facility] Service: Hospitalist Progress Note Hospital Day: LOS: 0 days SUBJECTIVE Patient Summary: 72-year-old female with history of hypertension, hyperlipidemia, joss nary artery disease a status post CABG x4, history of nephrolithiasis, history of recent str arsen 6 months ago who was transferred from [facility] because of new onset seiz ures. She had one episode at home described to be generalized tonic-clonic lasting for 5 mi nutes with postictal state. In the emergency room, she had another witnessed 5-minute tonic -clonic movement. She was loaded with Keppra IV and was given Ativan prior to transfer to [facility]. She is here for further neurologic evaluate. Of note, the patient was also diagnose d to have UTI and was started on ceftriaxone prior to transfer to [facility]. According to the daughter, patient has not been seen by her regular primary care phys icishawna for the past 1 and half years. Reportedly, she had a stroke 6 months ago and since, h as been having progressive functional decline. She was supposed to go to a long-term care [facility] but patient eventually declined this. Events Overnight: [...] Continue ceftriaxone. Will follow-up urine culture from [facility]. DVT prophylaxis: In place. GI prophylaxis: In place. Disposition: Inpatient. 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, [employer], used which may contain error for similar [...] EXTERNAL | | | | performed at [facility], [address] | | LAB | | | | [address], | | | | | | [place] [address] | | | | + + + [...] EXTERNAL | | | | performed at [facility], [address] | | LAB | | | | [address], | | | | | | [place] [address] | | | | + + + [...] EXTERNAL | | | | performed at [facility], [address] | | LAB | | | | [address], | | | | | | [place] [address] | | | | + + + [...] | | | | | performed at [facility], [address] | | | | | | [address], | | | | | | [place] [address] | | | | + + + [...] EXTERNAL | | | | performed at [facility];888 | mmol/L | LAB | | | | [address];[place] | | | | | | [address] | | | | + + + [...] EXTERNAL | | | | performed at [facility];[address] | | LAB | | | | [address];[place] | | | | | | [address] | | | | + + + [...] EXTERNAL | | | | performed at [facility];[address] | | LAB | | | | [address];[place], [place] | | | | | | [address] | | | | + + + [...] EXTERNAL | | | | performed at [facility];[address] | | LAB | | | | [address];[place] | | | | | | [address] | | | | + + + [...] | | | | | performed at [facility];[address] | | | | | | [facility];[place], [place] | | | | | | [address] | | | | + + + [...] | | | | | performed at [facility], [address] | | | | | | [facility], | | | | | | [place] [address] | | | | + + + [...] EXTERNAL | | | | performed at [facility];888 | mmol/L | LAB | | | | [address];[place], [place] | | | | | | [address] | | | | + + + [...] TR maxP.27 mmHg TR Vmax: 2.35 m/s Portable Track Line Marker: | | | Authenticated by: Miky Alamo Report Date/Time: 08-22-2018 | | | 14:38:8 | | + + + + + | Procedure Note | + + | Victor Hugo, Rad Conversion - 11/10/2018 7:55 PM PDT Patient Name: JENNI BLANKENSHIP, | | SALLYDate of : 1945 Performing Physician: Miky | | [facility] INDICATIONS------ | | -----Abnormal EKG [...] mlLAESV Index (A-L): 66.54 ml/m2LAAs A2C: 29.59 rv2JMSKF A-L A2C: 105.11 | | mlLALs A2C: 7.07 cmLAAs A4C: 32.97 tm3SJJHX A-L A4C: 119.49 mlLALs A4C: 7.72 | | cmTAPSE: 1.59 cmHR: 48.54 BPMAV maxP.21 mmHgAV meanP.37 mmHgAV Vmax: | | 1.24 m/Brenton Vmean: 0.86 m/Brenton VTI: 33.73 cmAVA Vmax: 1.92 cm2AVA (VTI): 1.95 | | ma2FDOV Vmax: 0.00 cm2/m2AVAI (VTI): 0.00 cm2/m2LVCI Dopp: 1.81 l/wepx6AUCI Dopp: | | 3.19 l/minHR: 48.32 BPMLVOT [...] | | 22.27 mmHgTR Vmax: 2.35 m/s Portable Track Line Marker: Authenticated by: Miky Gill | | Date/Time: [...] |TR Vmax: 2.35 m/s | | | |Portable Track Line Marker: | |Authenticated by: Miky Alamo | |Report [...] + + | Historically converted procedure from [facility] environment | EXTERNAL LAB | + [...] | | | Basophils | performed at [facility];[address] | K/uL | LAB | | | | [address];[place], [place] | | | | | | [address] | | | | + + + [...] EXTERNAL | | | | performed at [facility];[address] | | LAB | | | | [address];[place], [place] | | | | | | [address] | | | | + + + [...] EXTERNAL | | | | performed at [facility];[address] | | LAB | | | | [address];[place] | | | | | | [address] | | | | + + + [...] | | | | | performed at [facility] | | | | | | [facility];[place], [place] | | | | | | [address] | | | | + + + [...] most advanced at C5-6.Signed by: Chey Dorantes, [facility] Date/Time: | | 08/21/2018 5:52 PM [...] EXTERNAL | | | | performed at [facility];888 | mmol/L | LAB | | | | [address];[place], [place] | | | | | | [address] | | | | + + + [...] | | | Estimate | performed at [facility];[address] | | LAB | | | | [address];[place] | | | | | | [address] | | | | + + + [...] EXTERNAL | | | | performed at [facility];888 | mmol/L | LAB | | | | [address];[place] | | | | | | [address] | | | | + + + [...] | | | | | | MDRD IDME traceable | | | | | | equation.Testing | | | | | | performed at [facility];[address] | | | | | | [facility];[place], [place] | | | | | | [address] | | | | + + + [...]
--- OUTSIDE RECORDS SUMMARY | ~2019-07-26 | XMS | Encounter Summary ---
Demographics + + + | Address | [address] | | | [place] [address] | + + + | Home Phone [...] [place] | | | | | [address] | | + + + + + Care Team Providers + +------+ + | Care Mortgage Protection Sales Name | Role | Phone | [...] | Eugenio Mailcode: RPB07 | [address] [place], | | | | | [place], [place] | [place] [address] | | | | | [address] | [phone] | | | | | [phone] | | | +--------+ + + + [...]
--- OUTSIDE RECORDS SUMMARY | ~2019-07-26 | XMS | Encounter Summary ---
Demographics + + + | Address | BAD ADDRESS | | | [place] [address] | + + + | Home Phone [...] + | Author | [facility] | | | and [place] | + + + | Organization | [facility] | [...] | | | | | [place] [address] | | + + + + + | Najma Krishnamurthy | ECON | Unknown | | + + + + + | Hector Mack | ECON | [address] | | | | | [place] | | | | | [address] | | + + + + + | Najma Sanches | ECON | Unknown | | + + + + + Care Team Providers + +------+ + | Care Sociocultural Anthropology Professor Name | Role | Phone | + +------+ + PCP | Unavailable | + +------+ + Encounter Details +--------+ + + + + | Date | Type | Department | Care Team | Description | +--------+ + + + + | 07/25/ | Hospital | [facility] | | | | 1996 | Encounter | [facility] | | | | | | CENTER [address] | | | | | | [place] | | | | | | [address] | | | | | | [phone] | | | +--------+ + + + [...]
--- OUTSIDE RECORDS SUMMARY | ~2019-07-26 | XMS | Encounter Summary ---
Demographics + + + | Address | [address] | | | [place] [address] | + + + | Home Phone [...] [place] | | | | | [address] | | + + + + + Care Team Providers + +------+ + | Care Candle Maker Name | Role | Phone | [...] 09/07/ | Office | Preoperative | 1, [facility] Yard Specialist [address] | CAD (Coronary Artery | | 2008 | Visit | Medicine Clinic at | [facility] [address] | Disease); Gout; DM | | | | [facility] 4th Floor [address] | [place] [address] | Circ Dis Type II, | | | | [address] | | Uncontrolled (HCC); | | | | Mailcode: CH4S | | Obesity; Achalasia; | | | | [facility] | | Panniculitis; | | | | and Healing, | | Bruise; Other | | | | Building 1,4th Floor | | Specified | | | | [place], [place] | | Pre-Operative | | | | [address] | | Examination | | | | [phone] | | | +--------+---------+ + + + [...] uncontrolled(250.72) | | | | | | ([facility]) Obesity | | | | | | [...] | + + + + + | [facility] | [address] | [place] [address] | | | PATHOLOGY | [address] | | | + + + + + | [facility] | [address] | [place] [address] | | | PATHOLOGY | [address] [...] | + + + + + | [facility] | [address] [facility] | [place] [address] | | | PATHOLOGY | [address] | | | + + + + + | [facility] | [address] [facility] | [place] [address] | | | PATHOLOGY | [address] | | | + + + + + INR (09/07/2008 3:43 PM PDT) + + + + + + | Component | Value | Ref Range | Performed | Pathologist | | | | | At | Signature | + + + + + + | INR | 1.01Comment: | 0.90 - 1.20 INR | [facility] | | | | INR Therapeutic ranges [...] | + + + + + | [facility] DEPARTMENT OF | [address] | [place] [address] | | | PATHOLOGY | [address] | | | + + + + + | [facility] DEPARTMENT OF | [address] | [place] [address] | | | PATHOLOGY | [address] [...] (H) | 60 - 99 mg/dL | [facility] | | | PLASMA | [...] Performed At | + + + | [id number] Estimated GFR > 60 mL/min/1.73 sq m if non- | [facility] | | Togolese [id number] Estimated GFR > 60 mL/min/1.73 sq m if | DEPARTMENT | | [place]ese GFR is estimated using the MDRD equation [...] | + + + + + | [facility] | [address] [facility] | [place] [address] | | | PATHOLOGY | [address] | | | + + + + + | [facility] | [address] [facility] | [place] [address] | | | PATHOLOGY | [address] [...] | | | | | SHAKIRA GARCIA (2311) | | | | | | on [...] view image for the detailed interpretation from [employer] results. | CARDIOLOGY | | | | + + + + + + + + | Performing | Address | City/State/Zipcode | Phone Number | | Organization | | | | + + + + + | [facility] DEPT OF | [address] [facility] | [place], [place] | | | CARDIOLOGY | [address] | [address] | | + + + + + | [facility] | [address] [facility] | [place], [place] | | | CARDIOLOGY | [address] | [address] | | + + + + + documented in this encounter Visit Diagnoses + + | Diagnosis | + + | CAD (coronary artery disease) Coronary atherosclerosis of unspecified type of vessel, | | hughes or graft | + + | Gout [...]
--- OUTSIDE RECORDS SUMMARY | ~2019-07-26 | XMS | Encounter Summary ---
Demographics + + + | Address | BAD ADDRESS | | | [place] [address] | + + + | Home Phone | | + + + | Preferred Language | Unknown | + + + | Marital Status | | + + + | Evangelical Affiliation | 1077 | + + + | Race | Unknown | + + + | Ethnic Group | Unknown | + + + Author + + + | Author | [facility] | | | and [place] | + + + | Organization | [facility] | | [...] | | | | | [place] [address] | | + + + + + | Najma Krishnamurthy | ECON | Unknown | | + + + + + | Hector Mack | ECON | [address] | | | | | [place] | | | | | [address] | | + + + + + | Najma Sanches | ECON | Unknown | | + + + + + Care Team Providers + +------+ + | Care Fountain Worker Name | Role | Phone | + +------+ + PCP | Unavailable | + +------+ + Encounter Details +--------+ + + + + | Date | Type | Department | Care Team | Description | +--------+ + + + + | 09/26/ | Hospital | [facility] | | | | 1994 - | Encounter | MED CTR MED ONC | | | | | | [address] | | | | 10/04/ | | [place] [address] | | | | 1994 | | [phone] | | | +--------+ + + + [...]
--- OUTSIDE RECORDS SUMMARY | ~2019-07-26 | XMS | Encounter Summary ---
Demographics + + + | Address | [address] | | | [place] [address] | + + + | Home Phone [...] [place] | | | | | [address] | | + + + + + Care Team Providers + +------+ + | Care Cutter Helper Name | Role | Phone | [...] [facility] Gage Maker [address] | Panniculitis; CAD | | 2007 | Visit | Medicine Clinic at | [facility] | (Coronary Artery | | | | [facility] 4th Floor [address] | [place] [address] | Disease); DM Circ | | | | [address] | | Dis Type II, | | | | Mailcode: CH4S | | Uncontrolled (HCC); | | | | [facility] | | Other Specified | | | | and Healing, | | Pre-Operative | | | | Building 1,4th Floor | | Examination | | | | [place], [place] | | | | | | [address] | | | | | | [phone] | | | +--------+---------+ + + + [...] | + + +--------+ + + | RI COLLECTION VENOUS | Procedures | Routin | [...] + + + | [facility] DEPARTMENT OF | [address] | [place] [address] | | | PATHOLOGY | [address] | | | + + + + + | [facility] DEPARTMENT OF | [address] | [place] [address] | | | PATHOLOGY | [address] [...] + + + | [facility] DEPARTMENT OF | [address] | [place] [address] | | | PATHOLOGY | [address] | | | + + + + + | [facility] DEPARTMENT OF | [address] | [place] [address] | | | PATHOLOGY | [address] [...] + + | [facility] | [address] | [place] [address] | | | PATHOLOGY | [address] | | | + + + + + | [facility] | [address] [place] [address] [address] | [place] [address] | | | PATHOLOGY | [address] [...] + + | [facility] | [address] | [place] [address] | | | PATHOLOGY | [address] | | | + + + + + | [facility] | [address] [facility] | [place] [address] | | | PATHOLOGY | [address] [...] Performed At | + + + | [id number] Estimated GFR > 60 mL/min/1.73 sq m if non- | [facility] | | Tong[place] [id number] Estimated GFR > 60 mL/min/1.73 sq m if | DEPARTMENT OF | | [place] GFR is estimated using the MDRD equation [...] + + + | [facility] | [address] | [place] [address] | | | PATHOLOGY | [address] | | | + + + + + | [facility] DEPARTMENT OF | [address] | [place] [address] | | | PATHOLOGY | [address] [...] + + + | [facility] DEPARTMENT OF | [address] | [place] [address] | | | PATHOLOGY | [address] | | | + + + + + | [facility] DEPARTMENT | [address] | [place] [address] | | | PATHOLOGY | [address] [...] + + + | Please click | [facility]PT [facility] | | on view image for the detailed interpretation from [employer] results. | CARDIOLOGY | | | | + + + + + + + + | Performing | Address | City/State/Zipcode | Phone Number | | Organization | | | | + + + + + | [facility] | [address] | [place], [place] | | | CARDIOLOGY | [address] | [address] | | + + + + + | [facility] | [address] | [place], [place] | | | CARDIOLOGY | [address] | [address] | | + + + + + documented in this encounter Visit Diagnoses + + | Diagnosis | + + | Panniculitis Panniculitis, unspecified site | + + | CAD (coronary artery disease) Coronary atherosclerosis of unspecified type of vessel, | | umkumiut or graft | + + | Type II or unspecified type diabetes mellitus with peripheral circulatory disorders, | | uncontrolled(250.72) Type II or unspecified type diabetes mellitus with peripheral | | circulatory disorders, uncontrolled | + + | Other specified pre-operative examination | + + documented in this encounter
--- OUTSIDE RECORDS SUMMARY | ~2019-07-26 | XMS | Encounter Summary ---
Demographics + + + | Address | [address] | | | [place] [address] | + + + | Home Phone [...] [place] | | | | | [address] | | + + + + + Care Team Providers + +------+ + | Care Pump Assembler Name | Role | Phone | [...] | | | Wood | Mary Sanchez [facility] | | | | | | Mary Sanchez | [facility], | | | | | | [place], [place] | 10th Floor | | | | | | [address] | [place], [place] | | | | | | | [address] | | | | | | | Phone: | | | | | | | [phone] | | | | | | | Fax: | | | | | | | [phone] | +--------+--------+ + + + + Diagnostic [...] | CONTRAST | South | Mary Sanchez DEMIS | | | | | | [address] | Hospital, | | | | | | [place], [place] | 10th Floor | | | | | | [address] | [place], [place] | | | | | | Phone: | [address] | | | | | | [phone] | Phone: | | | | | | Fax: | [phone] | | | | | | [phone] | Fax: | | | | | | | [phone] | +--------+--------+ + + + + Diagnostic [...] | | | | [address] | | | | | | Mary Sanchez | [facility] | | | | | | [facility] | | | | | | [address] | [place], [place] | | | | | | Phone: | [address] | | | | | | [phone] | Phone: | | | | | | Fax: | [phone] | | | | | | [phone] | Fax: | | | | | | | [phone] | +--------+--------+ + + + + Reason [...] + + | 04/21/ | Hospital | [facility] [address] | Bryan Adams MD | | | 2012 - | Encounter | [address] | [address] | | | | | [id number] [facility] | [facility] | | | 04/24/ | | [facility], | [place] [address] | | | 2012 | | [place] [address] | [phone] | | | | | [phone] | | | | | | | Chaim Vizcarra MD | | | | | | [address] | | | | | | Park [facility] | | | | | | [place] [address] | | | | | | [phone] | | | | | | | [...] fracture, and she was subsequently transferred to [facility] for escalation of care. [...] Derm follow-up closer to her home in [place]. Medications: Discharge Medication List as of 04/24/2012 [...] Attending Physician: MD Tuan Sethi MD Neurology Imaging Scheduler Pager [phone] I saw and evaluated the patient. I agree with the findings and the plan of care as yesika lares in the resident s note. Halley Noriega MD Certified Coder Department of Neurology [facility] DEPARTMENT: Neurology Attending - [id number] Place of Service: Date of Service: 04/24/2012 CSN: [id number] Suggestive Modifier: GC - Resident Present Suggested CPT: 94326 - Discharge Day mgmt up to 30 [...] to re-consult, any questions. DANIELLE WYNN PA-C [facility] [address]K [address] [facility] [address]/kp2 [place] [address] hPetrona ayala PA - 04/23/2012 10:44 AM [...] HCT 35.4* 03/13/2011 7:46 AM HCT See [facility] 03/11/2011 5:13 PM WBC 6.8 04/23/2012 7:45 AM WBC 6.4 03/13/2011 7:46 AM WBC See [facility] 03/11/2011 5:13 PM PLT 209 04/23/2012 7:45 AM PLT 217 03/13/2011 7:46 AM PLT See [facility] 03/11/2011 5:13 PM CULTURE RESULT (no units) [...] indicated. Final Rep ort Resulted: 03/13/11 RLAnnabelle ([facility]) [facility] [address] [place] [address] STUDY: SPINE CERVICAL 2 VWS FLEX/EXT 04/22/12 [...] otherw ise intact. Motor 5/5 except LUE senior formulation scientist 4/5 Sensation intact to light touch Assessment [...] collar Will continue to follow. FABIO JACOBSEN-C [facility] [address] [address]/[facility] [place] [address] Halley Haddad MD - 04/23/2012 8:37 AM [...] Hari, attending physician, who agrees with the [facility] assessment and plan. VERA COOK MD,MPH Neurology Resident [id number] I performed a history and physical examination [...] it requires holding plavix. Halley Noriega MD Certified Coder Department of Neurology [facility] DEPARTMENT: Neurology Attending - [id number] Place of Service: [facility] Date of Service: 04/22/2013 CSN: [id number] Suggestive Modifier: None Suggested CPT: 54870 - Initial Visit, Level 2 Suggested Diagnosis: [...] and face w eakness and referred to [facility] for possible cervical fracture. [...] Socorro Galdamez MD - 04/22/2012 7:51 AM [facility] NEUROSURGERY PROGRESS NOTE Author: SOCORRO [...] Tongue midline Trace left pronator drift Slowed rpnnga-eo-naxy movements with mild end-point dysmetria 5/5 bilateral [...] Downs MD - 04/22/2012 7:47 AM PST [facility] Progress Note Team Pager: [phone] Attendin Attending Kitchen Stewardess: Primary Service Attending: MD Bryan Espinosa MD [...] Intake/Output Summary (Last 24 hours) at 04/22/12 0704 Last data filed at 04/22/12 0700 Gross [...] 0659 04/22/12 07 - 04/23/12 0659 Shift 3515-5117 7184-1073 9438-6942 Daily Total 1648-8425 9966-5192 1434-4284 Daily Total I N T A K [...] plan. Viktoriya Downs MD PGY2 Neurology Pager [phone] documented in t his encounter Plan of [...] [facility] | [address] | [place], [place] | | | DELICIA POINT OF CARE | [address] | [address] | | | TESTS | | | [...] [facility] | [address] | [place] [address] | | | SERVICES, CORE | PARK [...] [facility] | [address] | [place] [address] | | | SERVICES, CORE | PARK [...] [facility] | [address] | [place] [address] | | | MATT, BLU | MARY [...] (H) | 60 - 99 mg/dL | [facility] - | | | [...] + + + | AMY [facility] | 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 The patient was seen and examined with | | | the attending physician. We discussed the recommendations listed | | | above. Trevor Sosa M.D. Resident, Department of | | | Dermatology [facility] Attending | | | Physician Attestation I personally interviewed, examined the patient, | | | and discussed management with the resident. I reviewed and edited | | | the resident's note and agree with the documented findings and plan | | | of care. 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 The patient was seen and | | examined with the attending physician. We discussed the recommendations listed | | above.Trevor Sosa M.D.Resident, Department of DermatologyTexas [facility] [employer] [facility] | | [place] Attending Physician AttestationI personally interviewed, examined the | | patient, and discussed management with the resident. I reviewed and edited the | | resident's note and agree with the documented findings and plan of care. Khoa Lee | | MD Kaleb, PhDAssistant Professor, [facility] | | [facility] DEPARTMENT: [id number] [facility] Date | | of Service: 04/23/2012 : [id number] Modifier: | | GC Resident Involved: GC Resident InvolvedSuggested CPT: 23747 - Initial, Detailed; Low | | complex [...] home in [place]; would f/u with a software programmer there if not improved on topicals | | | |Please contact us with further questions. The patient was seen and examined with the attend ing physician. We discussed the recommendations listed above. | | | | | |Trevor Sosa M.D. | |Resident, Department of Dermatology | |[facility] | | | |Attending Physician Attestation | |I personally interviewed, examined the patient, and discussed management with the resident. I reviewed and edited the resident's note and agree with the documented findings and plan of care. | | | | | |Khoa Manuel MD, PhD | |Certified Coder, Department of Dermatology | |[facility] | | | |[facility] DEPARTMENT: [id number] [facility] | |Place of Service:[address]- Inpatient | |Date of Service: 04/23/2012 | | | |CSN: [id number] | |Suggested Modifier: GC Resident Involved: GC Resident Involved | |Suggested CPT: 54189 - Initial, Detailed; Low complex 30 min [...] [facility] | [address] | [place], [place] | | | [facility] OF [facility] | [address] | [address] | | | TESTS | | | [...] | | + +---------+ + + | [facility] DEPARTMENT OF | | [...] + | [facility] AIR[facility] - | [address] | [place] [address] | | | [place] | | | [...] + | [facility] - | [address] | [place] [address] | | | [place] | | | [...] + | [facility] - | [address] | [place] [address] | | | [place] | | | [...] [facility] | [address] | [place] | | | MARLEEN NESBITT OF LANCE | [address] | [address] | | | TESTS | | | [...] + + + + + | [facility] AIRPORT - | [address] | [place] [address] | | | [place] | | | | + + + [...] | prevalent in the general | | [place] | | | | population, and in [...] - | | | | | | [place] | | + + + + + + + + | Specimen | + + | Blood - Blood | + + + + + + + | Performing | Address | City/State/Zipcode | Phone Number | | Organization | | | | + + + + + | [facility] - | [address] | [place] [address] | | | [place] | | | [...] <200: | 180 - 914 pg/mL | [place] - | | | B12, SERUM | Severe deficiency. If | | AIRPORT - | | | | supplementation does not | | [place] | | | | correct consider | [...] if | | | | | | [id number] >400: | | | | | | [...] + | [facility] - | [address] | [place] [address] | | | [place] | | | | + + + [...] by | | | | | | [address] | | | | | | Heron Garcia, [facility] | | | | | | [address] | | | | | | [phone].Informouslab. | | | | | | Alma [...] [facility] | [address] | [place], [place] | | | UNIV PTH - INTFC | | [address] | | + + + + + [...] | + + + + + | [place] - AIRPORT - | [address] | [place] [address] | | | [place] | | | [...] | + + + + + | [place] [facility] - | [address] | [place] [address] | | | [place] | | | [...] + | [facility] - | [address] | [place] [address] | | | [place] | | | [...] [facility] | [address] | [place] [address] | | | SERVICES, CORE | PARK [...] + + + + + + | DIRECTOR OUTCOMES AB | Negative | Negative | [facility] [...] 7.0-10 | SERVICES, | | >10 Abraham DIRECTOR OUTCOMES AB U/ml <5.0 5.0-10 | SPECIAL IMM [...] | + + + + + | [facility] | [address] | [place] [address] | | | SERVICES, SPECIAL | MARY [...] | + + + + + | [facility] | [address] | [place] [address] | | | SERVICES, SPECIAL | PARK [...] | + + + + + | [facility] | [address] | [place] [address] | | | SERVICES, CORE | MARY [...] | + + + + + | [facility] | [address] | [place] [address] | | | MATT, BLU | MARY [...] | + + + + + | [facility] | [address] | [place] [address] | | | SERVICES, BLU | MARY [...] | | + +---------+ + + | [facility] DEPARTMENT OF | | [...] STEVE | | | | | | GRAETT 04/23/2012 10:04 | | | | | | AM Preliminary / | | | | | | STEVE ABJWA 04/23/2012 | | | | | | 8:53 AM | | | | + + + + + + + + | Specimen | + + | | + + + +---------+ + + | Performing | Address | City/State/Zipcode | Phone Number | | Organization | | | | + +---------+ + + | [facility] DEPARTMENT OF | | [...] | [facility] | [address] | [place], [place] | | | MARLEEN NESBITT OF CARE | [address] | [address] | | | TESTS | | | [...] [facility] | [address] | [place], [place] | | | MARLEEN NESBITT [facility] [place] | [address] | [address] | | | TESTS | | | [...] back | | | | | | [id number]. Attending | | | | | | [...] [facility] | [address] | [place], [place] | | | MARLEEN N[place] [facility] [place] | [address] | [address] | | | TESTS | | | [...] [facility] | [address] | [place] [address] | | | SERVICES, CORE | PARK [...] | + + + + + | [facility] | [address] | [place] [address] | | | SERVICES, CORE | MARY [...] | | | | Final | | [place] | | | | CULTURE RESULT:Multiple | [...] + | [facility] - | [address] | [place] [address] | | | [place] | | | [...] | + + + + + | [facility] | [address] | [place] [address] | | | SERVICES, BLU | MARY [...] (H) | 60 - 99 mg/dL | [facility] - | | | [...] [facility] | [address] | [place], [place] | | | MARLEEN NESBITT OF LANCE | [facility] | [address] | | | TESTS | | | [...] [facility] | [address] | [place] [address] | | | SERVICES, CORE | PARK [...] | + + + + + | [facility] [employer] | [address] | [place] [address] | | | MATT, | MARY SANCHEZ [...] LABORATORY | [address] | [place] [address] | | | SERVICES, | [address] [...] | + + + + + | [facility] | [address] | [place] [address] | | | SERVICES, CORE | PARK [...] | + + + + + | [facility] | [address] | [place] [address] | | | SERVICES, CORE | PARK [...] [facility] | [address] | [place] [address] | | | MATT, BLU | MARY [...]
--- OUTSIDE RECORDS SUMMARY | ~2019-07-26 | XMS | Encounter Summary ---
Demographics + + + | Address | [address] | | | [place] [address] | + + + | Home Phone [...] [place] | | | | | [address] | | + + + + + Care Team Providers + +------+ + | Care Cab Supervisor Name | Role | Phone | [...] Dx); | | | | Surgery at [facility] | | Intertrigo; CAD | | | | [address] | | (Coronary Artery | | | | Mailcode: [facility] | | Disease); DM Circ | | | | [facility] | | Dis Type II, | | | | and Healing, | | Uncontrolled ([facility]) | | | | Building 1, | | | | | | Floor [place], [place] | | | | | | [address] | | | | | | [phone] | | | +--------+---------+ + + + [...] in this encounter Patient Instructions Patient Instructions yAsha Blackburn - 01/15/2008 9:11 AM PDTRegistration Locations (pl ease check in at one of the following registration desks prior to surgery) For surgeries scheduled to take place on the howard at the [facility]: Surgeries scheduled in the [facility]): registration is located on the 4th floor of [facility] (Day Surgery). Surgeries scheduled in the [facility]: registration is located on the 9th floor. Surgeries scheduled in [facility]: registration is located on the 6th floor. Surgeries scheduled in the [facility]: registration is located i n the [facility] on the first floor. For surgeries scheduled to take place at the [facility]: registration is l ocated [...] Accession | | | | | | #:[id number] CC | | | | | | [...] | | | | | | at [facility] and | | | | | | Science | | | | | | [place].ASSESSMENT: | | | | | | Negative [...] + | [facility] | [address] [place] [address] | [place] [address] | | | PATHOLOGY | [address] | | | + + + + + | [facility] | [address] [place] [address] RAMA DEACON | [place] [address] | | | PATHOLOGY | [address] [...] + + + + | [facility] DEPART[facility] | [address] | [place] [address] | | | PATHOLOGY | [address] | | | + + + + + | [facility] | [address] | [place] [address] | | | PATHOLOGY | [address] [...] | [facility] | [address] | [place] [address] | | | PATHOLOGY | [address] | | | + + + + + | [facility] | [address] | [place] [address] | | | PATHOLOGY | [address] [...] Performed At | + + + | 104342 Estimated GFR > 60 mL/min/1.73 sq m if non- | [facility] | | Haitian 538851 Estimated GFR > 60 mL/min/1.73 sq m if | DEPARTMENT OF | | Haitian GFR is estimated using the MDRD equation [...] + + | Performing | Address | City/Va Hospital/Zipcode | Phone Number | | Organization | | | | + + + + + | [facility] | [address] [place] [address] | [place] [address] | | | PATHOLOGY | [address] | | | + + + + + | [facility] | [address] | [place] [address] | | | PATHOLOGY | [address] [...] + + | [facility] DEPARTMENT OF | [address] | [place] [address] | | | PATHOLOGY | [address] | | | + + + + + | [facility] | [address] | [place] [address] | | | PATHOLOGY | [address] | | | + + + + + documented in this encounter Visit Diagnoses + + | Diagnosis | + + | Panniculitis - Primary Panniculitis, unspecified site | + + | Intertrigo Other specified erythematous condition | + + | CAD (coronary artery disease) Coronary atherosclerosis of unspecified type of vessel, | | sitka or graft | + + | Type II or unspecified type diabetes mellitus with peripheral circulatory disorders, | | uncontrolled(250.72) Type II or unspecified type diabetes mellitus with peripheral | | circulatory disorders, uncontrolled | + + documented in this encounter
--- OUTSIDE RECORDS SUMMARY | ~2019-07-26 | XMS | Encounter Summary ---
Demographics + + + | Address | [address] | | | [place] [address] | + + + | Home Phone [...] [place] | | | | | [address] | | + + + + + Care Team Providers + +------+ + | Care Care Team Assistant Name | Role | Phone | [...] [id number] | | | | | | [place], [place] | | | | | | [address] | | | | | | [phone] | | | +--------+ + + + [...] DEPARTMENT OF | [address] | [place] [address] | | | PATHOLOGY | [address] | | | + + + + + | [facility] DEPARTMENT OF | [address] | [place] [address] | | | PATHOLOGY | [address] [...] Performed At | + + + | [id number] Estimated GFR > 60 mL/min/1.73 sq m if non- | [facility] | | 594459 Estimated GFR > 60 mL/min/1.73 sq m [...] [facility] | [address] | [place] [address] | | | PATHOLOGY | [address] | | | + + + + + | [facility] | [address] | [place] [address] | | | PATHOLOGY | [address] [...] + + + + | [facility] DEPARTMENT OF | [address] | [place] [address] | | | PATHOLOGY | [address] | | | + + + + + | [facility] DEPARTMENT OF | [address] | [place] [address] | | | PATHOLOGY | [address] | | | + + + + + documented in this encounter Visit Diagnoses Not on filedocumented in this encounter"
--- OUTSIDE RECORDS SUMMARY | ~2019-07-26 | XMS | Encounter Summary ---
Demographics + + + | Address | BAD ADDRESS | | | [place] [address] | + + + | Home Phone | | + + + | Preferred Language | Unknown | + + + | Marital Status | | + + + | [employer] Affiliation | 1077 | + + + | Race | Unknown | + + + | Ethnic Group | Unknown | + + + Author + + + | Author | [facility] | | | and Byron[place] | + + + | Organization | [facility] | | [...] | | | | | [place] [address] | | + + + + + | Najma Krishnamurthy | ECON | Unknown | | + + + + + | Hector Mack | ECON | [address] | | | | | [place] | | | | | [address] | | + + + + + | Najma Sanches | ECON | Unknown | | + + + + + Care Team Providers + +------+ + | Care Human Resources Officer Name | Role | Phone | + +------+ + PCP | Unavailable | + +------+ + Encounter Details +--------+ + + + + | Date | Type | Department | Care Team | Description | +--------+ + + + + | 11/10/ | Hospital | [facility] | Oralia Quinonez | | | 2011 | Encounter | HOSPITAL EMERGENCY | MD [address] | | | | | [address] | [facility], | | | | | [place], [place] | [place] [address] | | | | | [address] | [phone] | | | | | [phone] | | | +--------+ + + + [...]
--- OUTSIDE RECORDS SUMMARY | ~2019-07-26 | XMS | Encounter Summary ---
Demographics + + + | Address | BAD ADDRESS | | | [place] [address] | + + + | Home Phone [...] | Author | [facility] | | | and [place] | + + + | Organization | [facility] | [...] | | | | | [place] [address] | | + + + + + | Najma Krishnamurthy | ECON | Unknown | | + + + + + | Hector Mack | ECON | [address] | | | | | [place] | | | | | [address] | | + + + + + | Najma Sanches | ECON | Unknown | | + + + + + Care Team Providers + +------+ + | Care Communications Project Manager Name | Role | Phone [...] Encounter | [facility] | | | | | | GENERIC CONV 1321 | | | | 10/06/ | | [place], | | | | 1994 | | [place] [address] | | | | | | [phone] | | | +--------+ + + + [...]
--- OUTSIDE RECORDS SUMMARY | ~2019-07-26 | XMS | Encounter Summary ---
Demographics + + + | Address | [address] | | | [place] [address] | + + + | Home Phone [...] [place] | | | | | [address] | | + + + + + Care Team Providers + +------+ + | Care Credit Representative Name | Role | Phone | [...] as of this encounter Progress Notes Interface, Plastics Fabricator In - 02/15/2006 2:34 AM [facility] [id number] ANTONIETTAKRZYSZTOF RAE [id number] Referred From and Faxed To: Tim Paula [...] 4:01. Length of Visit: Sixty-one minutes of djps-vq-mxip consult with the patient and her friend [...] with myself, dietitian post-surgery. She is from [place]. This visit can be scheduled when she has a followup appointment with her surgeon here at [facility] Patient's Comprehension: This visit [...] friend Lulu. Caitlyn Chery R.D., L.D. / [id number] / [id number] / [id number] / cc: Chey Milan A.NSonyPSony Electronically signed by Caitlyn Chery 02-14-2006 01:37:50 PM documented i n this encounter Plan of Treatment Not on filedocumented as of this encounter Visit Diagnoses Not on filedocumented in this encounter"
--- OUTSIDE RECORDS SUMMARY | ~2019-07-26 | XMS | Encounter Summary ---
Demographics + + + | Address | BAD ADDRESS | | | [place] [address] | + + + | Home Phone [...] Author | [facility] | | | and [place] | + + + | Organization | [facility] | | | and [place] | + + + | Address | Unknown | + + + | Phone | Unavailable | + + + Support + + + + + | Name | Relationship | Address | Phone | + + + + + | Hector Mack | ECON | [address] | | | | | [place] [address] | | + + + + + | Najma Krishnamurthy | ECON | Unknown | | + + + + + | Hector Mack | ECON | [address] | | | | | [place] | | | | | [address] | | + + + + + | Najma Sanches | ECON | Unknown | | + + + + + Care Team Providers + +------+ + | Care Forensic Sergeant Name | Role | Phone | + +------+ + PCP | Unavailable | + +------+ + Encounter Details +--------+ + + + + | Date | Type | Department | Care Team | Description | +--------+ + + + + | 05/04/ | Hospital | [facility] | | | | 1996 - | Encounter | MED CTR OP REHAB | | | | | | [address] | | | | 08/19/ | | [place] [address] | | | | 1996 | | [phone] | | | +--------+ + + + [...]
--- OUTSIDE RECORDS SUMMARY | ~2019-07-26 | XMS | Encounter Summary ---
Demographics + + + | Address | [address] | | | [place] [address] | + + + | Home Phone [...] [place] | | | | | [address] | | + + + + + Care Team Providers + +------+ + | Care Special Agent Name | Role | Phone | [...] | | | | | | [address], [place] | | | | | | [address] | | | | | | [phone] | | | +--------+---------+ + + + [...] of surgical weight loss procedure. Scheduled for [facility] on 02/05/06 Last 1 Wt Readings: Date: [...] has been cleared for surgery by her men's locker room attendant, Dr. Melendez. She states she has completed dietary consultation and psychological evaluation in [facility]. Those records have been requested. Current [...] REFLUX DISEASE) SLEEP APNEA Past Surgical History: IN CABG, VEIN, FOUR HX APPENDECTOMY HX CHOLECYSTECTOMY [...]
--- OUTSIDE RECORDS SUMMARY | ~2019-07-26 | XMS | Encounter Summary ---
Demographics + + + | Address | BAD ADDRESS | | | [place] [address] | + + + | Home Phone | | + + + | Preferred Language | Unknown | + + + | Marital Status | | + + + | Holiness Affiliation | 1077 | + + + | Race | Unknown | + + + | Ethnic Group | Unknown | + + + Author + + + | Author | [facility] | | | and [place] | + + + | Organization | [facility] | [...] | | | | | [place] [address] | | + + + + + | Najma Krishnamurthy | ECON | Unknown | | + + + + + | Hector Mack | ECON | [address] | | | | | [place] | | | | | [address] | | + + + + + | Najma Sanches | ECON | Unknown | | + + + + + Care Team Providers + +------+ + | Care Caser Up Name | Role | Phone | + +------+ + | Tuan Chan MD | PCP | | + +------+ + Encounter Details +--------+ + + + + | Date | Type | Department | Care Team | Description | +--------+ + + + + | 01/03/ | Emergency | [facility] | Silas Maravilla | Cellulitis of chest | | 2018 | | HOSPITAL EMERGENCY | MD [address] | [place] (Primary Dx) | | | | [address] | JOSE M SHAFER, | | | | | [employer], [place] | [place] [address] | | | | | [address] | [phone] | | | | | [phone] | | | +--------+ + + + [...] not be allowed to run out. Contact [facility] as well as [facility] Friday to establish with a doctor. [...] D?MRN: | | | | | | [id number] | | | [id number] | | | his | | | [...] | | | St. | | | Roll | | | y | | | [...] | | | St. | | | Roll | | | y | | | [...] | | | 56 | | | UTAN | | | [...] | | | [place] | | | [facility], | | | [place] - | | | info@c | | | ollect | | | ivemed | | | icalte | | | [employer] | | | | +---+--------+ documented in [...]
--- OUTSIDE RECORDS SUMMARY | ~2019-07-26 | XMS | Encounter Summary ---
Demographics + + + | Address | [address] | | | [place] [address] | + + + | Home Phone [...] [place] | | | | | [address] | | + + + + + Care Team Providers + +------+ + | Care Banking Manager Name | Role | Phone | [...] 2007 | Registratio | [address] | [address] | | | | n | [place] Mailcode: RPB07 | [place], [place] | | | | | [place], [place] | [address] | | | | | [address] | [phone] | | | | | [phone] | | | +--------+ + + + [...]
--- OUTSIDE RECORDS SUMMARY | ~2019-07-26 | XMS | Encounter Summary ---
Demographics + + + | Address | [address] | | | [place] [address] | + + + | Home Phone [...] [place] | | | | | [address] | | + + + + + Care Team Providers + +------+ + | Care Representative Name | Role | Phone | [...] | | | | | Surgery at [facility] [address] | | | | | | [facility] | | | | | | for Health and | | | | | | Healing Building [address], | | | | | | 5th Floor [place], | | | | | | [place] [address] | | | | | | [phone] | | | +--------+---------+ + + + [...]
--- OUTSIDE RECORDS SUMMARY | ~2019-07-26 | XMS | Encounter Summary ---
Demographics + + + | Address | BAD ADDRESS | | | [place] [address] | + + + | Home Phone [...] | Author | [facility] | | | and [place] | + + + | Organization | [facility] | | | [...] | | | | | [place] [address] | | + + + + + | Najma Krishnamurthy | ECON | Unknown | | + + + + + | Hector Mack | ECON | [address] | | | | | [place] | | | | | [address] | | + + + + + | Najma Sanches | ECON | Unknown | | + + + + + Care Team Providers + +------+ + | Care Liquid Yeast Supervisor Name | Role | Phone | + +------+ + PCP | Unavailable | + +------+ + Encounter Details +--------+ + + + + | Date | Type | Department | Care Team | Description | +--------+ + + + + | 09/04/ | Hospital | [facility] | Mathew Sofia | Chest pain; NSTEMI | | 2012 - | Encounter | [facility] | MD [address] | (non-ST elevated | | | | CARE FLOOR [address] | myocardial | | 09/06/ | | [address] | [place] [address] | infarction) (HCC); | | 2012 | | [place], [place] | [phone] | CAD (coronary artery | | | | [address] | | disease); HTN | | | | [phone] | | (hypertension) | +--------+ + + [...] Summaries by Augustine Trejo MD at 09/06/12 9538 Author: Augustine Trejo MD Service: (none) Author Type: Physician Filed: 09/07/12 1703 Date of Service: 09/06/12 1699 Status: Signed Night Supervisor: Augustine Trejo MD (Physician) [facility] Service: Hospitalist Discharge Summary Date of Admission: [...] AM UTI + afebrile 1. Non-ST elevation AK evident - cont ASA and plavix and [...] Kidney disease COPD (chronic obstructive pulmonary disease) AK (myocardial infarction) Past Surgical History Procedure Date [...] Follow up: Tuan Chan MD 2010 [address] [facility] [address] Schedule an appointment as soon as possible for a visit DO [address], [address] [place] [address] Schedule an appointment as soon as possible [...] 1714 Date of Service: 09/06/121712 Status: Signed Night Supervisor: Francesco Reyna RN (Registered Nurse) Pt discharged home. Stable. Scripts given. Verbal and written discharge instructions given. Pt states no pain at time of discharge. FRANCESCO REYNA RN Augustine Cintron MD - 09/05/2012 2:21 PM PDT Progress Notes by Augustine Trejo MD at 09/05/12 142 Author: Augustine Trejo MD Service: (none) Author Type: Physician Filed: 09/05/12 1502 Date of Service: 09/05/121420 Status: Signed Night Supervisor: Augustine Trejo MD (Physician) [facility] Service: Hospitalist Progress Note Hospital [...] disease) ASSESSMENT & PLAN 1. Non-ST elevation AK evident - Dr. Naqvi on consult and [...] om the original. Progress Notes by Deedee Cisnerso RPH at 09/05/12902 Author: Deedee Cisneros RPH Service: (none) Author Type: Pharmacist Filed: 09/05/12902 Date of Service: 09/05/12902 Status: Signed Night Supervisor: Deedee Cisneros RPH (Pharmacist) Renal Dosing Monitoring: [...] | Testing performed at | | | [facility];[address] [facility];[place] [address] CULTURE | | | >100,000 CFU/ML MIXED GRAM NEGATIVE KRISTEN | | | NO FURTHER WORKUP | | | Testing performed at [facility], | | | [address] [place] [address] REPORT STATUS | | | 09/07/2012 FINAL [...] + + | Historically converted procedure from [facility] environment | EXTERNAL LAB | + [...] | | with 2.25 x 12 mm Mcleod balloon followed by stenting with 2.5 x 12 | | | mm Promus Element drug eluting stent. 6. Percutaneous | | | transluminal coronary angioplasty of the distal right coronary | | | artery with 3 x 12 mm Mcleod balloon followed by stenting with 3.5 | [...] femoral artery and a | | | 6-Comoran arterial sheath was placed. A 6-Comoran JL4 catheter was then | | | advanced under fluoroscopic guidance and engaged with the ostium of | | | the left main coronary artery, and multiple projections of the left | | | coronary systems were obtained with the use of contrast injections. | | | The catheter was then exchanged to a 6-Comoran JR4 catheter, which was | | | advanced under fluoroscopic guidance and engaged with the ostium of | | | the right coronary artery, and multiple projections of the right | | | coronary artery were obtained with the use of contrast injections. | | | The catheter was then exchanged to a 6-Comoran pigtail catheter which | | | was [...] 3 x 12 | | | mm Mcleod balloon at the site of the distal [...] with | | 2.25 x 12 mm Mcleod balloon followed by stenting with 2.5 x 12 mm Promus | | Element drug eluting stent. | | 6. Percutaneous transluminal coronary angioplasty of the distal right | | coronary artery with 3 x 12 mm Mcleod balloon followed by stenting with | | [...] obtained via right femoral artery and a 6-Comoran arterial sheath was | | placed. A 6-Comoran JL4 catheter was then advanced under fluoroscopic | | guidance and engaged with the ostium of the left main coronary artery, and | | multiple projections of the left coronary systems were obtained with the | | use of contrast injections. The catheter was then exchanged to a 6-Comoran | | JR4 catheter, which was advanced under fluoroscopic guidance and engaged | | with the ostium of the right coronary artery, and multiple projections of | | the right coronary artery were obtained with the use of contrast | | injections. The catheter was then exchanged to a 6-Comoran pigtail catheter | | which was advanced [...] then done with 3 x 12 mm Mcleod balloon | | at the site of [...] | | with 2.25 x 12 mm Mcleod balloon followed by stenting with 2.5 x 12 | | | mm Promus Element drug eluting stent. 6. Percutaneous | | | transluminal coronary angioplasty of the distal right coronary | | | artery with 3 x 12 mm Mcleod balloon followed by stenting with 3.5 | [...] femoral artery and a | | | 6-Comoran arterial sheath was placed. A 6-Comoran JL4 catheter was then | | | advanced under fluoroscopic guidance and engaged with the ostium of | | | the left main coronary artery, and multiple projections of the left | | | coronary systems were obtained with the use of contrast injections. | | | The catheter was then exchanged to a 6-Comoran JR4 catheter, which was | | | advanced under fluoroscopic guidance and engaged with the ostium of | | | the right coronary artery, and multiple projections of the right | | | coronary artery were obtained with the use of contrast injections. | | | The catheter was then exchanged to a 6-Comoran pigtail catheter which | | | was [...] 3 x 12 | | | mm Mcleod balloon at the site of the distal [...] with | | 2.25 x 12 mm Mcleod balloon followed by stenting with 2.5 x 12 mm Promus | | Element drug eluting stent. | | 6. Percutaneous transluminal coronary angioplasty of the distal right | | coronary artery with 3 x 12 mm Mcleod balloon followed by stenting with | | [...] obtained via right femoral artery and a 6-Comoran arterial sheath was | | placed. A 6-Comoran JL4 catheter was then advanced under fluoroscopic | | guidance and engaged with the ostium of the left main coronary artery, and | | multiple projections of the left coronary systems were obtained with the | | use of contrast injections. The catheter was then exchanged to a 6-Comoran | | JR4 catheter, which was advanced under fluoroscopic guidance and engaged | | with the ostium of the right coronary artery, and multiple projections of | | the right coronary artery were obtained with the use of contrast | | injections. The catheter was then exchanged to a 6-Comoran pigtail catheter | | which was advanced [...] then done with 3 x 12 mm Mcleod balloon | | at the site of [...] | | | | | ONLY, -COMPUTER (457), | | | | | | medical editor CHIN RUCKER | | | | | | (4) on 09/05/2012 6:44:08 | | | | | | AM | | | | + + + + + + + + | Specimen | + + | | + + + + + | Narrative | Performed At | + + + | Historically converted procedure from [facility] | EXTERNAL LAB | + + + [...] (500), | | | | | | medical editor CHIN RUCKER | | | | | | (4) on 09/05/2012 6:44:08 | | | | | | AM | | | | + + + + + + + + | Specimen | + + | | + + + + + | Narrative | Performed At | + + + | [facility] | [facility] | + [...] of unspecified type of vessel, | | barrow or graft | + + | HTN (hypertension) Unspecified essential hypertension | + + documented in this encounter
--- OUTSIDE RECORDS SUMMARY | ~2019-07-26 | XMS | Encounter Summary ---
Demographics + + + | Address | BAD ADDRESS | | | [place] [address] | + + + | Home Phone | | + + + | Preferred Language | Unknown | + + + | Marital Status | | + + + | Alevism Affiliation | 1077 | + + + | Race | Unknown | + + + | Ethnic Group | Unknown | + + + Author + + + | Author | [facility] | | | and [place] | + + + | Organization | [facility] | | | and [...] | | | | | [place] [address] | | + + + + + | Najma Krishnamurthy | ECON | Unknown | | + + + + + | Hector Mack | ECON | [address] | | | | | [place] | | | | | [address] | | + + + + + | Najma Sanches | ECON | Unknown | | + + + + + Care Team Providers + +------+ + | Care Straight Pin Making Machine Operator Name | Role | Phone | + +------+ + PCP | Unavailable | + +------+ + Encounter Details +--------+ + + + + | Date | Type | Department | Care Team | Description | +--------+ + + + + | 02/25/ | Hospital | [facility] | [place], | | | 2000 | Encounter | MED CTR LABORATORY | [address] | | | | | [address] | [place] | | | | | [place] | [address] | | | | | [address] | | | | | | [phone] | | | +--------+ + + + [...]
--- OUTSIDE RECORDS SUMMARY | ~2019-07-26 | XMS | Clinical Summary ---
Demographics + + + | Address | BAD ADDRESS | | | [place] [address] | + + + | Home Phone [...] Author | [facility] | | | and [place] | + + + | Organization | [facility] | | | and [...] | | | | | [place] [address] | | + + + + + | Najma Krishnamurthy | ECON | Unknown | | + + + + + | Hector Mack | ECON | [address] | | | | | [place] | | | | | [address] | | + + + + + | Najma Sanches | ECON | Unknown | | + + + + + Care Team Providers + +------+ + | Care Manager Combination Name | Role | Phone | + [...] | 04/27/2014 | + + + | [place] (myocardial infarction) | 09/05/2012 | + + [...] +--------+ +---------+--------+ | MEDICARE | MEDICA | [id number] | 05/29/18 | [phone] | | Medica | | | RE | | 94-Pre | 5 | | re | | | PART A | | sent | | | | | | AND B | | | | | | + +--------+ +--------+ +---------+--------+ | MEDICARE | MEDICA | [id number] | 05/29/18 | [phone] | | Medica | | | RE | | 94-Pre | 5 | | re | | | PART A | | sent | | | | | | AND B | | | | | | + +--------+ +--------+ +---------+--------+ | MEDICARE | MEDICA | [id number] | 05/29/18 | [phone] | | Medica | | | RE | | 94-Pre | 5 | | re | | | PART A | | sent | | | | | | AND B | | | | | | + +--------+ +--------+ +---------+--------+ | MODA [employer] PLAN | MODA | [id number] | 03/31/19 | [phone] | | Medica | | MEDICAID HMO | HEALTH | | 19-Pre | 1 | | id | | | MDCD | | sent | | | | | | [place] | | | | | | + +--------+ +--------+ +---------+--------+ | [place] | MEDICA | [id number] | | [phone] | | Med[place] | | | [place] | | 016-Pr | 2 | | id | | | PLUS | | esent | | | | + +--------+ +--------+ +---------+--------+ | [place] | MEDICA | [id number] | | [phone] | | Medica | | | ID [...] D | al/Fam | | 1946 | [phone] | [place] [address] | | | demetrius | | | 1 (Home) | | + +--------+ +--------+ + + | Germaine Ugalde | Person | Self [birth year] | BAD ADDRESS | | D | al/Fam | | 1946 | [phone] | [place] [address] | | | demetrius | | | 1 (Home) | | + +--------+ +--------+ + + | Germaine Ugalde | Person | Self [birth year] | [address] | | D | al/Fam | | 1946 | [phone] | [place] [address] | | | demetrius | | | 1 (Home) | | + +--------+ +--------+ + + | Germaine Ugalde | Person | Self [birth year] | | BAD ADDRESS | | D | al/Fam | | 1946 | [phone] | [place] [address] | | | demetrius | | | 1 (Home) | | + +--------+ +--------+ + + Advance Directives + + + + + | Type | Date Recorded | Patient | Explanation | | | | Production Planner Scheduler | | + + + + + | Power of | | | | | Registered Nurse Practitioner | | | | + + + [...]
--- OUTSIDE RECORDS SUMMARY | ~2019-07-26 | XMS | Encounter Summary ---
Demographics + + + | Address | [address] | | | [place] [address] | + + + | Home Phone [...] [place] | | | | | [address] | | + + + + + Care Team Providers + +------+ + | Care Hoop Punch And Coiler Operator Helper Name | Role | Phone [...] | Activity | [address] | [address] | | | | | [address] Mail[address]: RPB[address] | [place], [place] | | | | | [place], [place] | [address] | | | | | [address] | [phone] | | | | | [phone] | | | +--------+ + + + [...]
--- OUTSIDE RECORDS SUMMARY | ~2019-07-26 | XMS | Encounter Summary ---
Demographics + + + | Address | BAD ADDRESS | | | [place] [address] | + + + | Home Phone [...] + | Author | [facility] | | | and [place] | + + + | Organization | [facility] | [...] | | | | | [place] [address] | | + + + + + | Najma Krishnamurthy | ECON | Unknown | | + + + + + | Hector Mack | ECON | [address] | | | | | [place] | | | | | [address] | | + + + + + | Najma Sanches | ECON | Unknown | | + + + + + Care Team Providers + +------+ + | Care Clinical Consultant Name | Role | Phone | + +------+ + PCP | Unavailable | + +------+ + Encounter Details +--------+ + + + + | Date | Type | Department | Care Team | Description | +--------+ + + + + | 12/11/ | Hospital | [facility] | | | | 1997 - | Encounter | MED CTR GENERIC OP | | | | | | CONV DEPT [address] | | | | 01/24/ | | [place], | | | | 1997 | | [place] [address] | | | | | | [phone] | | | +--------+ + + + [...]
--- OUTSIDE RECORDS SUMMARY | ~2019-07-26 | XMS | Encounter Summary ---
Demographics + + + | Address | [address] | | | [place] [address] | + + + | Home Phone [...] [place] | | | | | [address] | | + + + + + Care Team Providers + +------+ + | Care Payloader Operator Name | Role | Phone | [...] as of this encounter Progress Notes Interface, Ict Security Specialist In - 07/27/2005 2:07 AM PDT [id number] 07/25/2005 07/25/2005 [id number] ARETHA RAE [address] [place] [address] or July 25, 2005 Tuan Chan M.D. [address] [place], [place] RE: GERMAINE CARIAS MR #: [id number] Dear Dr. Chan: Your patient Ms. Germaine Carias returned for an office visit at [facility] on , July 25, 2005. She, as [...] this kind referral. Sincerely, Wes Wolff M.D. [facility] / [id number] / [id number] / [id number] / cc: Papi Johnson M.D. [facility] General Surgery documented i n this encounter Plan of Treatment Not on filedocumented as of this encounter Visit Diagnoses Not on filedocumented in this encounter"
--- OUTSIDE RECORDS SUMMARY | ~2019-07-26 | XMS | Encounter Summary ---
Demographics + + + | Address | BAD ADDRESS | | | [place] [address] | + + + | Home Phone [...] | Author | [facility] | | | and [place] | + + + | Organization | [facility] | | [...] | | | | | [place] [address] | | + + + + + | Najma Krishnamurthy | ECON | Unknown | | + + + + + | Hector Mack | ECON | [address] | | | | | [place] | | | | | [address] | | + + + + + | Najma Sanches | ECON | Unknown | | + + + + + Care Team Providers + +------+ + | Care Commissary Production Supervisor Name | Role | Phone | + +------+ + PCP | Unavailable | + +------+ + Encounter Details +--------+ + + + + | Date | Type | Department | Care Team | Description | +--------+ + + + + | 03/03/ | Hospital [facility] | [place], | | | 2000 | Encounter | MED CTR XRAY [address] | [address] | | | | | [place] | [place] | | | | | [place] [address] | [id number] | | | | | [phone] | | | +--------+ + + + [...]
--- OUTSIDE RECORDS SUMMARY | ~2019-07-26 | XMS | Encounter Summary ---
Demographics + + + | Address | BAD ADDRESS | | | [place] [address] | + + + | Home Phone [...] Author | [facility] | | | and [place] | + + + | Organization | [facility] | | | and [...] | | | | | [place] [address] | | + + + + + | Najma Krishnamurthy | ECON | Unknown | | + + + + + | Hector Mack | ECON | [address] | | | | | [place] | | | | | [address] | | + + + + + | Najma Sanches | ECON | Unknown | | + + + + + Care Team Providers + +------+ + | Care Annual Campaign Manager Name | Role | Phone | + +------+ + PCP | Unavailable | + +------+ + Encounter Details +--------+ + + + + | Date | Type | Department | Care Team | Description | +--------+ + + + + | 08/01/ | Hospital | [facility] | Rina Diaz MD | CHEST PAIN NEC | | 2003 - | Encounter | [facility] | [address] | | | | | INTENSIVE CARE UNIT | [place] [address] | | | 08/02/ | | [address] | [phone] | | | 2003 | | [place], [place] | | | | | | [address] | | | | | | [phone] | | | +--------+ + + + [...]
--- OUTSIDE RECORDS SUMMARY | ~2019-07-26 | XMS | Encounter Summary ---
Demographics + + + | Address | [address] | | | [place] [address] | + + + | Home Phone [...] [place] | | | | | [address] | | + + + + + Care Team Providers + +------+ + | Care Relationship Counselor Name | Role | Phone | [...] [place] | | | | | | [address] | | | +--------+ + + + [...]
--- OUTSIDE RECORDS SUMMARY | ~2019-07-26 | XMS | Encounter Summary ---
Demographics + + + | Address | [address] | | | [place] [address] | + + + | Home Phone [...] [place] | | | | | [address] | | + + + + + Care Team Providers + +------+ + | Care Merchandising Execution Associate Name | Role | Phone | [...] | | Transcribed | | [place], | | | | | | [place] [address] | | | | | | [phone] | | | | | | | [...] Pedraza MD - 06/18/2007 12:00 AM PDT [id number] | | [id number] ARETHA RAE [id number] | | [id number] Date: 06/18/2007 Attending Surgeon: Noe Hdez M.D. | | Erco Machine Operator(s): Bryan Pedraza M.D. Preoperative Diagnosis(es): Right | | urolithiasis. Postoperative Diagnosis(es): Right urolithiasis. Procedures | | Performed: 1. Rigid cystourethroscopy. 2. Right retrograde pyelogram. 3. Right flexible | | nephroureteroscopy with holmium laser lithotripsy. 4. Right ureteral stent placement | | (6-Gambian x 24 cm). 5. Fluoroscopy with interpretation. [...] case. After | | surgical pause, a 21-Gambian rigid cystoscope was inserted into the bladder [...] both proximally and distally. An | | 18-Gambian Mirza catheter was then placed and filled [...] | | Chey Pedraza M.D. D / [id number] / [id number] / [id number] / | | [id number] Reviewed or Edited By Bryan Pedraza | [...] | | | After surgical pause, a 21-Gambian rigid cystoscope was inserted into the | [...] both proximally and distally. An | | 18-Gambian | | Mirza catheter was then placed [...] | | BDD / HS | | [id number] / [id number] / [id number] / 30930 | | | | | | | [...]
--- OUTSIDE RECORDS SUMMARY | ~2019-07-26 | XMS | Encounter Summary ---
Demographics + + + | Address | [address] | | | [place] [address] | + + + | Home Phone [...] [place] | | | | | [address] | | + + + + + Care Team Providers + +------+ + | Care Social Studies Department Chair Name | Role | Phone [...] | 2009 | Visit | Medical at [facility] [address] | FABIO Figueredo [address] | (Primary Dx) | | | | [facility] [place] [facility] | [facility], | | | | | [facility] Health and | [place] [address] | | | | | [facility] 1, | [phone] | | | | | 16th Floor | | | | | | [place], [place] | | | | | | [address] | | | | | | [phone] | | | +--------+---------+ + + + [...] in 06/06 --s/p CABG in 2000 in [facility] --s/p cholecystectomy 35 years ago --s/p appy [...] weeks Julia Buckley PA-C Department of Dermatology [facility] documented in this encounter Plan of Treatment Not on filedocumented as of this encounter Visit Diagnoses + + | Diagnosis | + + | 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
--- OUTSIDE RECORDS SUMMARY | ~2019-07-26 | XMS | Encounter Summary ---
Demographics + + + | Address | BAD ADDRESS | | | [place] [address] | + + + | Home Phone [...] Author | [facility] | | | and Byronana | + + + | Organization | [facility] | [...] | | | | | [place] [address] | | + + + + + | Najma Krishnamurthy | ECON | Unknown | | + + + + + | Hector Mack | ECON | [address] | | | | | [place] | | | | | [address] | | + + + + + | Najma Sanches | ECON | Unknown | | + + + + + Care Team Providers + +------+ + | Care Linux Unix System Administrator Name | Role | Phone | [...] 2018 | | HOSPITAL EMERGENCY | C, MANAGER GENERATION [address] | skin eruption | | | | CENTER [address] | [address] [place] | (Primary Dx); Severe | | | | [place] | [address] | uncontrolled | | | | [address] | | hypertension; | | | | [phone] | | Noncompliance with | | | [...] | | | FICATI | | | ON?11/ | | | | | | 8 | | | 10:26? | | | JENNI | | | BARNET | | | T, | | | GERMAINE | | | D?MRN: | | | | | | [id number] | | | [id number] | | | ecurit | | | [...] | | | St. | | | [place] | | | y | | | [...] | | | [phone] | | | [phone] | | | .These | | | [...] | | | St. | | | [place] | | | y H. | | [...] | | | St. | | | [place] | | | y H. | | [...] | | | St. | | | [place] | | | y | | | [...]
--- OUTSIDE RECORDS SUMMARY | ~2019-07-26 | XMS | Encounter Summary ---
Demographics + + + | Address | [address] | | | [place] [address] | + + + | Home Phone [...] [place] | | | | | [address] | | + + + + + Care Team Providers + +------+ + | Care Flight Superintendent Name | Role | Phone | [...] | | | | | | | [facility] | | | | | | | [address] | | | | | | | [facility] | | | | | | | [facility] | | | | | | | [place], [place] | | | | | | | [address] | | | | | | | Phone: | | | | | | | [phone] | | | | | | | Fax: | | | | | | | [phone] | +--------+--------+ + + + + Encounter Details +--------+---------+ + + + | Date | Type | Department | Care Team | Description | +--------+---------+ + + + | 05/09/ | Office | Preoperative | Steven, | Preop Examination | | 2008 | Visit | Medicine Clinic at | BITA Medina | (Primary Dx); | | | | [facility] 4th Floor [address] | | Long-Term (Current) | | | | [address] | | Use of | | | | Mailcode: CH4S | | Anticoagulants | | | | [facility] | | | | | | and Healing, | | | | | | Building [facility] Floor | | | | | | [place], [place] | | | | | | [address] | | | | | | [phone] | | | +--------+---------+ + + + [...] | + + + + + | [facility] | [address] | [place] [address] | | | PATHOLOGY | [address] | | | + + + + + | [facility] | [address] | [place] [address] | | | PATHOLOGY | [address] [...] + + + | [facility] | [address] | [place] [address] | | | PATHOLOGY | [address] | | | + + + + + | [facility] | [address] | [place] [address] | | | PATHOLOGY | [address] [...] Performed At | + + + | [id number] Estimated GFR > 60 mL/min/1.73 sq m if non- | [facility] | | Prydeinig [id number] Estimated GFR > 60 mL/min/1.73 sq m if | DEPARTMENT OF | | Prydeinig GFR is estimated using the MDRD equation [...] | + + + + + | [facility] | [address] [facility] | [place] [address] | | | PATHOLOGY | [address] | | | + + + + + | [facility] | [address] [place] [address] | [place] [address] | | | PATHOLOGY | [address] | | | + + + [...] + + + | [facility] | [facility] | [place] [address] | | | PATHOLOGY | [address] | | | + + + + + | [facility] DEPARTMENT OF | [address] | [place] [address] | | | PATHOLOGY | [address] [...]
--- OUTSIDE RECORDS SUMMARY | ~2019-07-26 | XMS | Encounter Summary ---
Demographics + + + | Address | [address] | | | [place] [address] | + + + | Home Phone [...] [place] | | | | | [address] | | + + + + + Care Team Providers + +------+ + | Care Paraprofessional Education Assistant Name | Role | Phone | [...] Procedure Note | + + | Interface, Bread Dumper In - 02/05/2006 12:00 AM PST | | [id number] | | [id number] ANTONIETTAMACK GERMAINE [id number] | | | | Date: 02/05/2006 | | | | Attending Surgeon: Papi Johnson M.D. | | | | Paperboard Box Maker(s): Darrel Dunn M.D. | | | | [...] | | DS / HS | | [id number] / [id number] / [id number] / 54792 | | | | | | | | | | | | Reviewed or Edited By Darrel Dunn MD on 05-29-2006 | | Electronically signed by Papi Johnson 05-29-2006 11:17:53 AM | | | | | + + + + | Transcriptions | + + | Interface, Bread Dumper In - 02/20/2006 2:34 AM PST | | [id number] | | [id number] ARETHA HERRON [id number] | | | | Date: 02/05/2006 | | | | Attending Surgeon: Herberth Ayala M.D. | | | | Paperboard Box Maker(s): Darrel Dunn M.D. | | | | [...] | | | RWO / | | [id number] / [id number] / [id number] / [id number] | | | | | | | | | | | | Electronically signed by Herberth Brambila 02-19-2006 11:24:19 AM | + + documented in this encounter Visit Diagnoses Not on filedocumented in this encounter"
--- OUTSIDE RECORDS SUMMARY | ~2019-07-26 | XMS | Encounter Summary ---
Demographics + + + | Address | BAD ADDRESS | | | [place] [address] | + + + | Home Phone [...] Author | [facility] | | | and Byronana | + + + | Organization | [facility] [...] | | | | | [place] [address] | | + + + + + | Najma Krishnamurthy | ECON | Unknown | | + + + + + | Hector Mack | ECON | [address] | | | | | [place] | | | | | [address] | | + + + + + | Najma Sanches | ECON | Unknown | | + + + + + Care Team Providers + +------+ + | Care Mechanical Maintenance Name | Role | Phone | + [...] | 2018 | | HOSPITAL DERMATOLOGY | PROGRAM MANAGER [address] | results) | | | | CLINIC [address] | [place], | | | | | DR [place], | [place] [address] | | | | | [place] [address] | [phone] | | | | | [phone] | | | +--------+ + + + [...]
--- OUTSIDE RECORDS SUMMARY | ~2019-07-26 | XMS | Encounter Summary ---
Demographics + + + | Address | [address] | | | [place] [address] | + + + | Home Phone [...] [place] | | | | | [address] | | + + + + + Care Team Providers + +------+ + | Care Toll Gate Keeper Name | Role | Phone | [...] | | | Wood | Mary Sanchez [facility] | | | | | | Mary Sanchez | [facility], | | | | | | [place], [place] | 10th Floor | | | | | | [address] | [place], [place] | | | | | | | [address] | | | | | | | Phone: | | | | | | | [phone] | | | | | | | Fax: | | | | | | | [phone] | +--------+--------+ + + + + Diagnostic [...] | CONTRAST | South | Mary Sanchez [facility] | | | | | | [address] | Hospital, | | | | | | [place], [place] | 10th Floor | | | | | | [address] | [place], [place] | | | | | | Phone: | [address] | | | | | | [phone] | Phone: | | | | | | Fax: | [phone] | | | | | | [phone] | Fax: | | | | | | | [phone] | +--------+--------+ + + + + Diagnostic [...] | | | | [address] | | | | | | Mray Sanchez | [facility] | | | | | | [facility] | | | | | | [address] | [place], [place] | | | | | | Phone: | [address] | | | | | | [phone] | Phone: | | | | | | Fax: | [phone] | | | | | | [phone] | Fax: | | | | | | | [phone] | +--------+--------+ + + + + Reason [...] + + | 04/21/ | Hospital | [facility] [address] | Bryan Adams MD | | | 2012 - | Encounter | [address] | [address] | | | | | [id number] [facility] | [facility] | | | 04/24/ | | [facility], | [place] [address] | | | 2012 | | [place] [address] | [phone] | | | | | [phone] | | | | | | | Chaim Vizcarra MD | | | | | | [address] | | | | | | [facility] | | | | | | [place] [address] | | | | | | [phone] | | | | | | | [...] fracture, and she was subsequently transferred to [facility] for escalation of care. On comparison to [...] Derm follow-up closer to her home in [place]. Medications: Discharge Medication List as of 04/24/2012 [...] Attending Physician: MD Tuan Sethi MD Neurology Captain/Airline Pilot Pager [phone] I saw and evaluated the patient. I agree with the findings and the plan of care as yesika lares in the resident s note. Halley Noriega MD Shift Manager Department of Neurology [facility] DEPARTMENT: Neurology Attending - [id number] Place of Service: Date of Service: 04/24/2012 CSN: [id number] Suggestive Modifier: GC - Resident Present Suggested CPT: 41139 - Discharge Day mgmt up to 30 [...] to re-consult, any questions. DANIELLE WYNN PA-C [facility] [address] [facility] [address]/kp2 [place] [address] hPetrona ayala PA - 04/23/2012 10:44 AM [...] HCT 35.4* 03/13/2011 7:[address] [facility] 03/11/2011 5:13 PM WBC 6.8 04/23/2012 7:45 AM WBC 6.4 03/13/2011 7:[address] [facility] 03/11/2011 5:13 PM PLT 209 04/23/2012 7:45 AM PLT 217 03/13/2011 7:[address] [facility] 03/11/2011 5:13 PM CULTURE RESULT (no [...] indicated. Final Rep ort Resulted: 03/13/11 RLAnnabelle ([facility]) [facility] [address] [place] [address] STUDY: SPINE CERVICAL 2 VWS FLEX/EXT 04/22/12 [...] otherw ise intact. Motor 5/5 except LUE vulcan crewmember 4/5 Sensation intact to light touch Assessment [...] for C collar Will continue to follow. AFBIO JACOBSEN-C [facility] [address] [facility] [address] [address] [place] [address] Halley Haddad MD - 04/23/2012 8:37 AM [...] Hari, attending physician, who agrees with the [facility] assessment and plan. VERA COOK MD,MPH Neurology Resident [id number] I performed a history and physical examination [...] it requires holding plavix. Halley Noriega MD Shift Manager Department of Neurology [facility] DEPARTMENT: Neurology Attending - [id number] Place of Service: [facility] Date of Service: 04/22/2013 CSN: [id number] Suggestive Modifier: None Suggested CPT: 93434 - Initial Visit, Level 2 Suggested Diagnosis: [...] and face w eakness and referred to [facility] for possible cervical fracture. MRI suggests infarcts [...] Socorro Galdamez MD - 04/22/2012 7:51 AM [facility] NEUROSURGERY PROGRESS NOTE Author: SOCORRO JARRELL [...] Tongue midline Trace left pronator drift Slowed jkhrtt-ej-pzea movements with mild end-point dysmetria 5/5 bilateral [...] Downs MD - 04/22/2012 7:47 AM PST [facility] Team Pager: [phone] Attendin Attending Lithographic Platemaker: Primary Service Attending: MD Bryan Espinosa MD [...] Intake/Output Summary (Last 24 hours) at 04/22/12 0766 Last data filed at 04/22/12 0700 Gross [...] 0659 04/22/12 07 - 04/23/12 0659 Shift 4496-9311 1316-2854 5855-8994 Daily Total 4921-5672 3673-7127 9131-3387 Daily Total I N T A K [...] plan. Viktoriya Downs MD PGY2 Neurology Pager [phone] documented in t his encounter Plan of [...] [facility]QU[facility] | [address] | [place], [place] | | | DEL[facility]IA POINT OF CARE | [address] | [address] | | | TESTS | | | [...] [facility] | [address] | [place] [address] | | | SERVICES, CORE | PARK [...] [facility] | [address] | [place] [address] | | | SERVICES, CORE | PARK [...] [facility] | [address] | [place] [address] | | | MATT, BLU | MARY [...] (H) | 60 - 99 mg/dL | [facility] - | | | GLUCOSE, | | [...] + + + | AMY PAPPAS | [address] | [place], [place] | | | MARLEEN NESBITT 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 The patient was seen and examined with | | | the attending physician. We discussed the recommendations listed | | | above. Trevor Sosa M.D. Resident, Department of | | | Dermatology [facility] Attending | | | Physician Attestation I personally interviewed, examined the patient, | | | and discussed management with the resident. I reviewed and edited | | | the resident's note and agree with the documented findings and plan | | | of care. 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 The patient was seen and | | examined with the attending physician. We discussed the recommendations listed | | above.Trevor Sosa M.D.Resident, Department of DermatologyNe[place] [employer] | | [place] Attending Physician AttestationI personally interviewed, examined the | | patient, and discussed management with the resident. I reviewed and edited the | | resident's note and agree with the documented findings and plan of care. Khoa Lee | | MD Kaleb, PhDAssistant Professor, Department of [facility]ology[facility] [employer] [facility] | | [facility] DEPARTMENT: [id number] [facility] Date | | of Service: 04/23/2012 : [id number] Modifier: | | GC Resident Involved: GC Resident InvolvedSuggested CPT: 99435 - Initial, Detailed; Low | | complex [...] home in [place]; would f/u with a quality auditor there if not improved on topicals | | | |Please contact us with further questions. The patient was seen and examined with the attend ing physician. We discussed the recommendations listed above. | | | | | |Trevor Sosa M.D. | |Resident, Department of Dermatology | |[facility] | | | |Attending Physician Attestation | |I personally interviewed, examined the patient, and discussed management with the resident. I reviewed and edited the resident's note and agree with the documented findings and plan of care. | | | | | |Khoa Manuel MD, PhD | |Shift Manager, Department of Dermatology | |[facility] | | | |[facility] DEPARTMENT: [id number] [facility] | |Place of Service:[address]- Inpatient | |Date of Service: 04/23/2012 | | | |CSN: [id number] | |Suggested Modifier: GC Resident Involved: GC Resident Involved | |Suggested CPT: 46213 - Initial, Detailed; Low complex 30 min [...] MARNOLAAM | [address] | [place], [place] | | | [facility] | [address] | [address] | | | TESTS | | | [...] + | [facility] - AIRPORT - | [address] | [place] [address] | | | [place] | | | [...] + | [facility] - | [address] | [place] [address] | | | [place] | | | [...] + | [facility] - AIRPORT - | [address] | [place] [address] | | | [place] | | | [...] MAR[facility] | [address] | [place] | | | MARLEEN NESBITT OF LANCE | [address] | [address] | | | TESTS | | | [...] | + + + + + | [facility] AIRPORT - | [address] | [place] [address] | | | [facility] | | | | + [...] | prevalent in the general | | [place] | | | | population, and in [...] - | | | | | | [place] | | + + + + + + + + | Specimen | + + | Blood - Blood | + + + + + + + | Performing | Address | City/State/Zipcode | Phone Number | | Organization | | | | + + + + + | [facility] - | [address] | [place] [address] | | | [place] | | | [...] <200: | 180 - 914 pg/mL | [facility] - | | | B12, SERUM | Severe deficiency. If | | AIRPORT - | | | | supplementation does not | | [facility] | | | | correct consider | [...] if | | | | | | [id number] >400: | | | | | | [...] + | [facility] - AIRPORT - | [address] | [place] [address] | | | [place] | | | | + + + [...] by | | | | | | [employer],[address] | | | | | | Heron Garcia, [facility],[place] | | | | | | [address] | | | | | | [phone].[employer]. | | | | | | Alma [...] [facility] | [address] | [place], [place] | | | UNIV PTH - INTFC | | [address] | | + + + + + [...] | + + + + + | [facility] - AIRPORT - | [address] | [place] [address] | | | [place] | | | [...] | + + + + + | [facility] - AIRPORT - | [address] | [place] [address] | | | [place] | | | [...] + | [facility] - AIRPORT - | [address] | [place] [address] | | | [place] | | | [...] [facility] | [address] | [place] [address] | | | SERVICES, CORE | PARK [...] + + + + + + | [facility] | Negative | Negative | [facility] [...] 7.0-10 | SERVICES, | | >10 Abraham [facility] U/ml <5.0 5.0-10 | SPECIAL IMM [...] | + + + + + | [facility] | [address] | [place] [address] | | | SERVICES, SPECIAL | MARY [...] | + + + + + | [employer] | [address] | [place] [address] | | | SERVICES, SPECIAL | PARK [...] | + + + + + | [facility] | [address] | [place] [address] | | | SERVICES, CORE | MARY [...] | + + + + + | [facility] | [address] | [place] [address] | | | MATT, BLU | MARY [...] | + + + + + | [facility] | [address] | [place] [address] | | | SERVICES, BLU | MARY [...] [facility]QU[facility] | [address] | [place], [place] | | | MARLEEN NESBITT OF CARE | [address] | [address] | | | TESTS | | | [...] PAPPAS | [address] | [place], [place] | | | MARLEEN NESBITT OF [place] | [address] | [address] | | | TESTS | | | [...] back | | | | | | [id number]. Attending | | | | | | [...] P[facility] | [address] | [place], [place] | | | MARLEEN N[place]BIT[place] OF [place] | [address] | [address] | | | TESTS | | | [...] [facility] | [address] | [place] [address] | | | SERVICES, CORE | PARK [...] | + + + + + | [facility] | [address] | [place] [address] | | | SERVICES, CORE | MARY [...] | | | | Final | | [place] | | | | CULTURE RESULT:Multiple | [...] + | [facility] - AIRPORT - | [address] | [place] [address] | | | [place] | | | [...] | + + + + + | [facility] | [address] | [place] [address] | | | SERVICES, BLU | MARY [...] (H) | 60 - 99 mg/dL | [facility] - | | | GLUCOSE, | | [...] PAPPAS | [address] | [place], [place] | | | MARLEEN NESBITT OF LANCE | [facility] | [address] | | | TESTS | | | [...] [facility] | [address] | [place] [address] | | | SERVICES, CORE | PARK [...] | + + + + + | [employer] [facility] | [address] | [place] [address] | | | MATT, | MARY SANCHEZ [...] LABORATORY | [address] | [place] [address] | | | SERVICES, | [address] [...] | + + + + + | [facility] | [address] | [place] [address] | | | SERVICES, CORE | PARK [...] | + + + + + | [facility] | [address] | [place] [address] | | | SERVICES, CORE | PARK [...] [facility] | [address] | [place] [address] | | | MATT, BLU | MARY [...]
--- OUTSIDE RECORDS SUMMARY | ~2019-07-26 | XMS | Encounter Summary ---
Demographics + + + | Address | BAD ADDRESS | | | [place] [address] | + + + | Home Phone [...] + | Author | [facility] | | | and [place] | + + + | Organization | [facility] | [...] | | | | | [place] [address] | | + + + + + | Najma Krishnamurthy | ECON | Unknown | | + + + + + | Hector Mack | ECON | [address] | | | | | [place] | | | | | [address] | | + + + + + | Najma Sanches | ECON | Unknown | | + + + + + Care Team Providers + +------+ + | Care Puff Ironer Name | Role | Phone | + +------+ + PCP | Unavailable | + +------+ + Encounter Details +--------+ + + + + | Date | Type | Department | Care Team | Description | +--------+ + + + + | 07/25/ | Hospital | [facility] | | | | 1996 | Encounter | [facility] CTR EMERGENCY | | | | | | CENTER [address] | | | | | | [place] | | | | | | [address] | | | | | | [phone] | | | +--------+ + + + [...]
--- OUTSIDE RECORDS SUMMARY | ~2019-07-26 | XMS | Encounter Summary ---
Demographics + + + | Address | [address] | | | [place] [address] | + + + | Home Phone [...] [place] | | | | | [address] | | + + + + + Care Team Providers + +------+ + | Care Tube Builder Name | Role | Phone | + [...] | Only | [address] | [address] | | | | | Mailcode: [id number] | [place], [place] | | | | | [facility] | [address] | | | | | and Healing, | [phone] | | | | | | | | | | | Floor [place], [place] | | | | | | [address] | | | | | | [phone] | | | +--------+ + + + [...]
--- OUTSIDE RECORDS SUMMARY | ~2019-07-26 | XMS | Encounter Summary ---
Demographics + + + | Address | [address] | | | [place] [address] | + + + | Home Phone [...] [place] | | | | | [address] | | + + + + + Care Team Providers + +------+ + | Care Secretary Bookkeeper Name | Role | Phone | + [...] | Eugenio Mailcode: [id number] | [place], | | | | | [place], [place] | [place] [address] | | | | | [address] | [phone] | | | | | [phone] | | | +--------+ + + + [...]
--- OUTSIDE RECORDS SUMMARY | ~2019-07-26 | XMS | Encounter Summary ---
Demographics + + + | Address | BAD ADDRESS | | | [place] [address] | + + + | Home Phone [...] | Author | [facility] | | | and [place] | + + + | Organization | [facility] [...] | | | | | [place] [address] | | + + + + + | Najma Krishnamurthy | ECON | Unknown | | + + + + + | Hector Mack | ECON | [address] | | | | | [place] | | | | | [address] | | + + + + + | Najma Sanches | ECON | Unknown | | + + + + + Care Team Providers + +------+ + | Care Electric Vehicle Electrician Name | Role | Phone | + +------+ + PCP | Unavailable | + +------+ + Encounter Details +--------+ + + + + | Date | Type | Department | Care Team | Description | +--------+ + + + + | 12/03/ | Hospital | [facility] | | | | 1997 - | Encounter | MED CTR MED ONC | | | | | | [address] | | | | 12/11/ | | [place] [address] | | | | 1997 | | [phone] | | | +--------+ + + + [...]
--- OUTSIDE RECORDS SUMMARY | ~2019-07-26 | XMS | Encounter Summary ---
Demographics + + + | Address | BAD ADDRESS | | | [place] [address] | + + + | Home Phone | | + + + | Preferred Language | Unknown | + + + | Marital Status | | + + + | Spiritism Affiliation | 1077 | + + + | Race | Unknown | + + + | Ethnic Group | Unknown | + + + Author + + + | Author | [facility] | | | and [place] | + + + | Organization | [facility] | [...] | | | | | [place] [address] | | + + + + + | Najma Krishnamurthy | ECON | Unknown | | + + + + + | Hector Mack | ECON | [address] | | | | | [place] | | | | | [address] | | + + + + + | Najma Sanches | ECON | Unknown | | + + + + + Care Team Providers + +------+ + | Care Aircraft Engineer Name | Role | Phone | [...] | | | | | [address] | | | | 04/09/ | | [place] [address] | | | | 1997 | | [phone] | | | +--------+ + + + [...]
--- OUTSIDE RECORDS SUMMARY | ~2019-07-26 | XMS | Encounter Summary ---
Demographics + + + | Address | [address] | | | [place] [address] | + + + | Home Phone [...] [place] | | | | | [address] | | + + + + + Care Team Providers + +------+ + | Care Investor Name | Role | Phone | + [...] [address] | | | | | | [facility] | | | | | | and Healing, | | | | | | [address] | | | | | | [place], [place] | | | | | | [address] | | | | | | [phone] | | | +--------+------+ + + + [...] + + documented in this encounter Results [facility] - BASIC METABOLIC SET (03/11/2011 [...] + + + | Test performed by: [facility] | [facility] | | Outpatient Lab [address] [place], [place] [address] | DEPARTMENT OF | | | PATHOLOGY | + + + + + + + + | Performing | Address | City/State/Zipcode | Phone Number | | Organization | | | | + + + + + | [facility] | [address] | [place] [address] | | | PATHOLOGY | [address] [...] + + + | Test performed by: [facility] | [facility] | | Outpatient Lab CH3L [address] [place], [place] [address] | DEPARTMENT OF | | Sent to Core Lab. | PATHOLOGY | + + + + + + + + | Performing | Address | City/State/Zipcode | Phone Number | | Organization | | | | + + + + + | [facility] DEPARTMENT OF | [address] | [place] [address] | | | PATHOLOGY | [address] | | | + + + + + documented in this encounter Visit Diagnoses + + | Diagnosis | + + | Kidney stone Calculus of kidney | + + documented in this encounter"
--- OUTSIDE RECORDS SUMMARY | ~2019-07-26 | XMS | Encounter Summary ---
Demographics + + + | Address | [address] | | | [place] [address] | + + + | Home Phone [...] 13 | | | | | [place] | | | | | [address] | | + + + + + Care Team Providers + +------+ + | Care Sprinkler Irrigation Equipment Mechanic Name | Role | Phone | [...] | | | | Mailcode: [id number] | [place], [place] | | | | | [facility] | [address] | | | | | and Healing, | [phone] | | | | | [facility] | | | | | | Floor [place], [place] | | | | | | [address] | | | | | | [phone] | | | +--------+---------+ + + + [...] Resident Division of Urology and Renal Transplantation [facility] oe Hdez - 10/19/2007 1:51 PM [...] Lab) | | | | | | [facility] | | | | | | [address] | | | [address] | | | | | | [place], [place] | | | | | | [address]In[place]qlum: Test | | | | | | performed at [facility] | | | | | | [facility] [...] | + + + + + | [facility] | [address] | [place] [address] | | | LAB-MICRO | | | [...] [facility] | [address] | [place], [place] | | | [facility] CARE | [address] | [address] | | | TESTS | | | | + + + + + | [facility] | [address] | [place], [place] | | | TESTS | [address] | [address] | | + + + + + documented in this encounter Visit Diagnoses + + | Diagnosis | + + | Urolithiasis - Primary Urinary calculus, unspecified | + + documented in this encounter"
--- OUTSIDE RECORDS SUMMARY | ~2019-07-26 | XMS | Encounter Summary ---
Demographics + + + | Address | BAD ADDRESS | | | [place] [address] | + + + | Home Phone [...] Author | [facility] | | | and [place] | + + + | Organization | [facility] | | [...] | | | | | [place] [address] | | + + + + + | Najma Krishnamurthy | ECON | Unknown | | + + + + + | Hector Mack | ECON | [address] | | | | | [place] | | | | | [address] | | + + + + + | Najma Sanches | ECON | Unknown | | + + + + + Care Team Providers + +------+ + | Care Fish Cake Maker Name | Role | Phone | + +------+ + PCP | Unavailable | + +------+ + Encounter Details +--------+ + + + + | Date | Type | Department | Care Team | Description | +--------+ + + + + | 04/14/ | Hospital | [facility] | | | | 1996 | Encounter | MED CTR EMERGENCY | | | | | | CENTER [address] | | | | | | [place] | | | | | | [address] | | | | | | [phone] | | | +--------+ + + + [...]
--- OUTSIDE RECORDS SUMMARY | ~2019-07-26 | XMS | Encounter Summary ---
Demographics + + + | Address | BAD ADDRESS | | | [place] [address] | + + + | Home Phone [...] | Author | [facility] | | | and [place] | + + + | Organization | [facility] | | | and [place] | + + + | Address | Unknown | + + + | Phone | Unavailable | + + + Support + + + + + | Name | Relationship | Address | Phone | + + + + + | eHctor Mack | ECON | [address] | | | | | [place] [address] | | + + + + + | Najma Krishnamurthy | ECON | Unknown | | + + + + + | Hector Mack | ECON | [address] | | | | | [place] | | | | | [address] | | + + + + + | Najma Sanches | ECON | Unknown | | + + + + + Care Team Providers + +------+ + | Care Quality Reviewer Name | Role | Phone | + +------+ + PCP | Unavailable | + +------+ + Encounter Details +--------+ + + + + | Date | Type | Department | Care Team | Description | +--------+ + + + + | 05/15/ | Hospital | [facility] | | | | 2000 - | Encounter | MED CTR GENERIC OP | | | | | | CONV DEPT [address] | | | | 06/20/ | | [place], | | | | 2000 | | [place] [address] | | | | | | [phone] | | | +--------+ + + + [...]
--- OUTSIDE RECORDS SUMMARY | ~2019-07-26 | XMS | Encounter Summary ---
Demographics + + + | Address | [address] | | | [place] [address] | + + + | Home Phone [...] + + | Author | [facility] | + + + | Organization | [facility] | + + + | Address | Unknown | + + + | Phone | Unavailable | + + + Support + + + + + | Name | Relationship | Address | Phone | + + + + + | Hector Mack | ECON | [address] | | | | | [place] | | | | | [address] | | + + + + + Care Team Providers + +------+ + | Care Box Stamper Name | Role | Phone | + [...] [facility] | | | | | | [facility] | | | | | | and Healing, | | | | | | Building [address] | | | | | | Floor [place], [place] | | | | | | [address] | | | | | | [phone] | | | +--------+---------+ + + + [...] The next will be in 2 m [facility] time. documented in this encounter Plan of Treatment Not on filedocumented as of this encounter Visit Diagnoses + + | Diagnosis | + + | Achalasia Achalasia and cardiospasm | + + | Obesity Obesity, unspecified | + + documented in this encounter
--- OUTSIDE RECORDS SUMMARY | ~2019-07-26 | XMS | Encounter Summary ---
Demographics + + + | Address | [address] | | | [place] [address] | + + + | Home Phone | | + + + | Preferred Language | Unknown | + + + | Marital Status | | + + + | Yazdanism Affiliation | PRO | + + + | Race | White | + + + | Ethnic Group | Not or | + + + Author + + + | Author | [facility] | + + + | Organization | [facility] | + + + | Address | Unknown | + + + | Phone | Unavailable | + + + Support + + + + + | Name | Relationship | Address | Phone | + + + + + | Hector Mack | ECON | [address] | | | | | [place] | | | | | [address] | | + + + + + Care Team Providers + +------+ + | Care Sample Selector Name | Role | Phone | + +------+ + | Tuan Chan MD | PCP | | + +------+ + Encounter Details +--------+ + + + + | Date | Type | Department | Care Team | Description | +--------+ + + + + | 03/11/ | Results | Urology Fertility | Renato Chow MD | | | 2010 | Only | [address] | | | | | | Mailcode: [id number] | | | | | | [facility] | | | | | | and Healing, | | | | | | Building | | | | | | Floor [place], [place] | | | | | | [address] | | | | | | [phone] | | | +--------+ + + + [...] | + + + + + | [facility] | [address] | [place] [address] | | | PATHOLOGY | [address] | | | + + + + + documented in this encounter Visit Diagnoses Not on filedocumented in this encounter"
--- OUTSIDE RECORDS SUMMARY | ~2019-07-26 | XMS | Encounter Summary ---
Demographics + + + | Address | [address] | | | [place] [address] | + + + | Home Phone [...] [place] | | | | | [address] | | + + + + + Care Team Providers + +------+ + | Care Furniture Arranger Name | Role | Phone | + [...] [id number] | | | | | | [place], [place] | | | | | | [address] | | | | | | [phone] | | | +--------+ + + + [...] + | [place] DEPARTMENT OF | [address] | [place] [address] | | | PATHOLOGY | [address] | | | + + + + + | [place] DEPARTMENT OF | [address] | [place] [address] | | | PATHOLOGY | [address] [...] | + + + + + | [facility] | [facility] | [place] [address] | | | PATHOLOGY | [address] | | | + + + + + | [facility] | [facility] | [place] [address] | | | PATHOLOGY | [address] [...] DEPARTMENT OF | [address] | [place] [address] | | | PATHOLOGY | [address] | | | + + + + + | [facility] DEPARTMENT OF | [address] | [place] [address] | | | PATHOLOGY | [address] [...] | + + + + + | [facility] DEPARTMENT OF | [address] | [place] [address] | | | PATHOLOGY | [address] | | | + + + + + | [facility] DEPARTMENT | [address] | [place] [address] | | | PATHOLOGY | [address] [...] | + + + + + | [facility] | [address] | [place] [address] | | | PATHOLOGY | [address] | | | + + + + + | [facility] | [facility] | [place] [address] | | | PATHOLOGY | [address] [...] DEPARTMENT OF | [address] | [place] [address] | | | PATHOLOGY | [address] | | | + + + + + | [facility] DEPARTMENT OF | [address] | [place] [address] | | | PATHOLOGY | [address] | | | + + + + + BASIC METABOLIC SET (02/08/2006 6:43 AM PST) + +---------+ + + + | Component | Value | Ref Range | Performed | Pathologist | | | | | At | Signature | + +---------+ + + + | GLUCOSE, | 102 | 65 - 110 mg/dL | [facility] | | | PLASMA | | [...] | + + + + + | [facility] | [address] | [place] [address] | | | PATHOLOGY | [address] | | | + + + + + | [facility] DEPARTMENT OF | [address] | [place] [address] | | | PATHOLOGY | [address] [...] | + + + + + | [facility] | [facility] | [place] [address] | | | PATHOLOGY | [address] | | | + + + + + | [facility] | [address] [place] [address] | [place] [address] | | | PATHOLOGY | [address] [...] DEPARTMENT OF | [address] | [place] [address] | | | PATHOLOGY | [address] | | | + + + + + | [facility] DEPARTMENT | [address] | [place] [address] | | | PATHOLOGY | [address] | | | + + + + + MAGNESIUM, PLASMA (02/08/2006 4:30 AM PST) + +-------+ + + + | Component | Value | Ref Range | Performed | Pathologist | | | | | At | Signature | + +-------+ + + + | MAGNESIUM,P | 2.0 | 1.8 - 2.5 mg/dL | [facility] | | | LASMA | | [...] | + + + + + | [facility] | [address] | [place] [address] | | | PATHOLOGY | [address] | | | + + + + + | [facility] | [address] | [place] [address] | | | PATHOLOGY | [address] [...] | + + + + + | [facility] DEPARTMENT OF | [facility] | [place] [address] | | | PATHOLOGY | [address] | | | + + + + + | [place] DEPARTMENT OF | [facility] | [place] [address] | | | PATHOLOGY | [address] [...] | + + + + + | [facility] DEPARTMENT OF | [address] | [place] [address] | | | PATHOLOGY | [address] | | | + + + + + | [facility] DEPARTMENT OF | [address] | [place] [address] | | | PATHOLOGY | [address] [...] | + + + + + | [facility] DEPARTMENT OF | [address] | [place] [address] | | | PATHOLOGY | [address] | | | + + + + + | [facility] DEPARTMENT OF | [address] | [place] [address] | | | PATHOLOGY | [address] [...] | + + + + + | [facility] DEPARTMENT | [facility] | [place] [address] | | | PATHOLOGY | [address] | | | + + + + + | [facility] DEPARTMENT OF | [facility] | [place] [address] | | | PATHOLOGY | [address] [...] | + + + + + | [facility] DEPARTMENT OF | [address] | [place] [address] | | | PATHOLOGY | [address] | | | + + + + + | [place] DEPARTMENT OF | [address] | [place] [address] | | | PATHOLOGY | [address] [...] DEPARTMENT OF | [address] | [place] [address] | | | PATHOLOGY | [address] | | | + + + + + | [facility] DEPARTMENT OF | [address] | [place] [address] | | | PATHOLOGY | [address] | | | + + + + + PHOSPHORUS, PLASMA (02/07/2006 4:30 AM PST) + +-------+ + + + | Component | Value | Ref Range | Performed | Pathologist | | | | | At | Signature | + +-------+ + + + | PHOSPHORUS, | 3.4 | 2.4 - 4.7 mg/dL | [facility] | | | PLASMA | | [...] | + + + + + | [facility] | [address] | [place] [address] | | | PATHOLOGY | [address] | | | + + + + + | [facility] | [facility] | [place] [address] | | | PATHOLOGY | [address] [...] | + + + + + | [facility] DEPARTMENT OF | [address] | [place] [address] | | | PATHOLOGY | [address] | | | + + + + + | [facility] DEPARTMENT OF | [address] | [place] [address] | | | PATHOLOGY | [address] [...] 10.2 | 4.4 - 11.0 K/cu | [facility] | | | COUNT | | mm [...] + | [facility] | [address] | [place] [address] | | | PATHOLOGY | [address] | | | + + + + + | [facility] DEPARTMENT OF | [address] | [place] [address] | | | PATHOLOGY | [address] [...] | + + + + + | [facility] DEPARTMENT | [address] | [place] [address] | | | PATHOLOGY | [address] | | | + + + + + | [facility] | [address] | [place] [address] | | | PATHOLOGY | [address] [...] No. | | | | | | [phone], medical | | | | | | record [phone], ICD-9 | | | | | | [...] | + + + + + | [facility] | [facility] | [place] [address] | | | PATHOLOGY | [address] | | | + + + + + | [facility] | [facility] | [place] [address] | | | PATHOLOGY | [address] [...] | + + + + + | [facility] DEPARTMENT | [address] | [place] [address] | | | PATHOLOGY | [address] | | | + + + + + | [facility] DEPARTMENT OF | [address] | [place] [address] | | | PATHOLOGY | [address] [...] | + + + + + | [facility] | [address] | [place] [address] | | | PATHOLOGY | [address] | | | + + + + + | [facility] | [facility] [address] | [place] [address] | | | PATHOLOGY | [address] [...] | + + + + + | [facility] DEPARTMENT OF | [address] | [place] [address] | | | PATHOLOGY | [address] | | | + + + + + | [facility] DEPARTMENT OF | [address] | [place] [address] | | | PATHOLOGY | [address] [...] | + + + + + | [facility] DEPARTMENT OF | [address] | [place] [address] | | | PATHOLOGY | [address] | | | + + + + + | [facility] DEPARTMENT OF | [address] | [place] [address] | | | PATHOLOGY | [address] [...] cmnt | 1.8 - 2.5 mg/dL | [facility] | | | LASMA | | [...] DEPARTMENT OF | [address] | [place] [address] | | | PATHOLOGY | [address] | | | + + + + + | [facility] DEPARTMENT OF | [address] | [place] [address] | | | PATHOLOGY | [address] [...] DEPARTMENT OF | [address] | [place] [address] | | | PATHOLOGY | [address] | | | + + + + + | [facility] DEPARTMENT OF | [address] | [place] [address] | | | PATHOLOGY | [address] [...] + | [facility] | [address] | [place] [address] | | | PATHOLOGY | [address] | | | + + + + + | [facility] OF | [address] | [place] [address] | | | PATHOLOGY | [address] [...] | + + + + + | [facility] | [address] | [place] [address] | | | PATHOLOGY | [address] | | | + + + + + | [facility] | [address] | [place] [address] | | | PATHOLOGY | [address] [...] by | | | | | | [facility] | | | | | | [facility]. | | | | + + + + + + + + | Specimen | + + | | + + + + + + + | Performing | Address | City/State/Zipcode | Phone Number | | Organization | | | | + + + + + | [facility] | [address] | [place] [address] | | | LABORATORY | | | | + + + + + documented in this encounter Visit Diagnoses Not on filedocumented in this encounter"
--- OUTSIDE RECORDS SUMMARY | ~2019-07-26 | XMS | Encounter Summary ---
Demographics + + + | Address | BAD ADDRESS | | | [place] [address] | + + + | Home Phone | | + + + | Preferred Language | Unknown | + + + | Marital Status | | + + + | Hindu Affiliation | 1077 | + + + | Race | Unknown | + + + | Ethnic Group | Unknown | + + + Author + + + | Author | [facility] | | | and [place] | + + + | Organization | [facility] | [...] | | | | | [place] [address] | | + + + + + | Najma Krishnamurthy | ECON | Unknown | | + + + + + | Hector Mack | ECON | [address] | | | | | [place] | | | | | [address] | | + + + + + | Najma Sanches | ECON | Unknown | | + + + + + Care Team Providers + +------+ + | Care Textile Science Technician Name | Role | Phone | [...] | | | 1998 | | [place] [address] | | | +--------+ + + + [...]
--- OUTSIDE RECORDS SUMMARY | ~2019-07-26 | XMS | Encounter Summary ---
Demographics + + + | Address | BAD ADDRESS | | | [place] [address] | + + + | Home Phone [...] | Author | [facility] | | | and [place] | + + + | Organization | [facility] | | | and [place] | + + + | Address | Unknown | + + + | Phone | Unavailable | + + + Support + + + + + | Name | Relationship | Address | Phone | + + + + + | Hector Mack | ECON | [address] | | | | | [place] [address] | | + + + + + | Najma Krishnamurthy | ECON | Unknown | | + + + + + | Hector Mack | ECON | [address] | | | | | [place] | | | | | [address] | | + + + + + | Najma Sanches | ECON | Unknown | | + + + + + Care Team Providers + +------+ + | Care Pedicab Driver Name | Role | Phone | + +------+ + PCP | Unavailable | + +------+ + Encounter Details +--------+ + + + + | Date | Type | Department | Care Team | Description | +--------+ + + + + | 03/01/ | Hospital | [facility] | | | | 1995 - | Encounter | MED CTR GENERIC OP | | | | | | CONV DEPT [address] | | | | 08/02/ | | [place], | | | | 1997 | | [place] [address] | | | | | | [phone] | | | +--------+ + + + [...]
--- OUTSIDE RECORDS SUMMARY | ~2019-07-26 | XMS | Encounter Summary ---
Demographics + + + | Address | [address] | | | [place] [address] | + + + | Home Phone [...] [place] | | | | | [address] | | + + + + + Care Team Providers + +------+ + | Care Reed Man Name | Role | Phone | + +------+ + | Tuan Chan MD | PCP | | + +------+ + Encounter Details +--------+ + + + + | Date | Type | Department | Care Team | Description | +--------+ + + + + | 02/13/ | Development Writer | Urology Fertility | Renato Chow MD | Kidney stones | | 2010 | | [address] | | (Primary Dx) | | | | Mailcode: CH10U | | | | | | [facility] | | | | | | and Healing, | | | | | | Building [address], [address] | | | | | | Floor [place], [place] | | | | | | [address] | | | | | | [phone] | | | +--------+ + + + [...]
--- OUTSIDE RECORDS SUMMARY | ~2019-07-26 | XMS | Encounter Summary ---
Demographics + + + | Address | BAD ADDRESS | | | [place] [address] | + + + | Home Phone [...] + | Author | [facility] | | | and [place] | + + + | Organization | [facility] | | | and [...] | | | | | [place] [address] | | + + + + + | Najma Krishnamurthy | ECON | Unknown | | + + + + + | Hector Mack | ECON | [address] | | | | | [place] | | | | | [address] | | + + + + + | Najma Sanches | ECON | Unknown | | + + + + + Care Team Providers + +------+ + | Care Supply Chain Logistics Manager Name | Role | Phone | + +------+ + PCP | Unavailable | + +------+ + Encounter Details +--------+ + + + + | Date | Type | Department | Care Team | Description | +--------+ + + + + | 09/04/ | Hospital | [facility] | Mathew Sofia | Chest pain; NSTEMI | | 2012 - | Encounter | [facility] | MD [address] | (non-ST elevated | | | | CARE FLOOR [address] | myocardial | | 09/06/ | | [address] | [place] [address] | infarction) (HCC); | | 2012 | | [place], [place] | [phone] | CAD (coronary artery | | | | [address] | | disease); HTN | | | | [phone] | | (hypertension) | +--------+ + + [...] Summaries by Augustine Trejo MD at 09/06/12 6233 Author: Augustine Trejo MD Service: (none) Author Type: Physician Filed: 09/07/12 1703 Date of Service: 09/06/12 0832 Status: Signed Electrician Journeyman Wireman: Augustine Trejo MD (Physician) [facility]: Hospitalist Discharge Summary Date of [...] AM UTI + afebrile 1. Non-ST elevation MA evident - cont ASA and plavix and [...] Kidney disease COPD (chronic obstructive pulmonary disease) MA (myocardial infarction) Past Surgical History Procedure Date [...] Follow up: Tuan Chan MD 2010 [address] [facility] [address] Schedule an appointment as soon as possible for a visit DO [address], [address] [place] [address] Schedule an appointment as soon as possible [...] 1714 Date of Service: 09/06/121712 Status: Signed Electrician Journeyman Wireman: Francesco Reyna RN (Registered Nurse) Pt discharged home. Stable. Scripts given. Verbal and written discharge instructions given. Pt states no pain at time of discharge. FRANCESCO REYNA RN Augustine Cintron MD - 09/05/2012 2:21 PM PDT Progress Notes by Augustine Trejo MD at 09/05/12 142 Author: Augustine Trejo MD Service: (none) Author Type: Physician Filed: 09/05/12 1502 Date of Service: 09/05/121420 Status: Signed Electrician Journeyman Wireman: Augustine Trejo MD (Physician) [facility]: Hospitalist Progress Note Hospital Day: [...] disease) ASSESSMENT & PLAN 1. Non-ST elevation MA evident - Dr. Naqvi on consult and [...] 09/05/12902 Date of Service: 09/05/12902 Status: Signed Electrician Journeyman Wireman: Deedee Cisneros RPH (Pharmacist) Renal Dosing Monitoring: [...] | Testing performed at | | | [facility];[address] [facility];[place] [address] CULTURE | | | >100,000 CFU/ML MIXED GRAM NEGATIVE KRISTEN | | | NO FURTHER WORKUP | | | Testing performed at [facility], | | | [address] [place] [address] REPORT STATUS | | | 09/07/2012 FINAL [...] + + | Historically converted procedure from [facility] environment | EXTERNAL LAB | + + [...] | | with 2.25 x 12 mm [place] balloon followed by stenting with 2.5 x 12 | | | mm Promus Element drug eluting stent. 6. Percutaneous | | | transluminal coronary angioplasty of the distal right coronary | | | artery with 3 x 12 mm [place] balloon followed by stenting with 3.5 | [...] femoral artery and a | | | 6-Palestinian arterial sheath was placed. A 6-Palestinian JL4 catheter was then | | | advanced under fluoroscopic guidance and engaged with the ostium of | | | the left main coronary artery, and multiple projections of the left | | | coronary systems were obtained with the use of contrast injections. | | | The catheter was then exchanged to a 6-Palestinian JR4 catheter, which was | | | advanced under fluoroscopic guidance and engaged with the ostium of | | | the right coronary artery, and multiple projections of the right | | | coronary artery were obtained with the use of contrast injections. | | | The catheter was then exchanged to a 6-Palestinian pigtail catheter which | | | was [...] 3 x 12 | | | mm [place] balloon at the site of the distal [...] with | | 2.25 x 12 mm [place] balloon followed by stenting with 2.5 x 12 mm Promus | | Element drug eluting stent. | | 6. Percutaneous transluminal coronary angioplasty of the distal right | | coronary artery with 3 x 12 mm [place] balloon followed by stenting with | | [...] obtained via right femoral artery and a 6-Palestinian arterial sheath was | | placed. A 6-Palestinian JL4 catheter was then advanced under fluoroscopic | | guidance and engaged with the ostium of the left main coronary artery, and | | multiple projections of the left coronary systems were obtained with the | | use of contrast injections. The catheter was then exchanged to a 6-Palestinian | | JR4 catheter, which was advanced under fluoroscopic guidance and engaged | | with the ostium of the right coronary artery, and multiple projections of | | the right coronary artery were obtained with the use of contrast | | injections. The catheter was then exchanged to a 6-Palestinian pigtail catheter | | which was advanced [...] then done with 3 x 12 mm [place] balloon | | at the site of [...] | | with 2.25 x 12 mm [place] balloon followed by stenting with 2.5 x 12 | | | mm Promus Element drug eluting stent. 6. Percutaneous | | | transluminal coronary angioplasty of the distal right coronary | | | artery with 3 x 12 mm [place] balloon followed by stenting with 3.5 | [...] femoral artery and a | | | 6-Palestinian arterial sheath was placed. A 6-Palestinian JL4 catheter was then | | | advanced under fluoroscopic guidance and engaged with the ostium of | | | the left main coronary artery, and multiple projections of the left | | | coronary systems were obtained with the use of contrast injections. | | | The catheter was then exchanged to a 6-Palestinian JR4 catheter, which was | | | advanced under fluoroscopic guidance and engaged with the ostium of | | | the right coronary artery, and multiple projections of the right | | | coronary artery were obtained with the use of contrast injections. | | | The catheter was then exchanged to a 6-Palestinian pigtail catheter which | | | was [...] 3 x 12 | | | mm [place] balloon at the site of the distal [...] Wiggle wire was advanced to the distal TASNEME and I was able | | | [...] with | | 2.25 x 12 mm [place] balloon followed by stenting with 2.5 x 12 mm Promus | | Element drug eluting stent. | | 6. Percutaneous transluminal coronary angioplasty of the distal right | | coronary artery with 3 x 12 mm [place] balloon followed by stenting with | | [...] obtained via right femoral artery and a 6-Palestinian arterial sheath was | | placed. A 6-Palestinian JL4 catheter was then advanced under fluoroscopic | | guidance and engaged with the ostium of the left main coronary artery, and | | multiple projections of the left coronary systems were obtained with the | | use of contrast injections. The catheter was then exchanged to a 6-Palestinian | | JR4 catheter, which was advanced under fluoroscopic guidance and engaged | | with the ostium of the right coronary artery, and multiple projections of | | the right coronary artery were obtained with the use of contrast | | injections. The catheter was then exchanged to a 6-Palestinian pigtail catheter | | which was advanced [...] then done with 3 x 12 mm [place] balloon | | at the site of [...] | | | | | ONLY, -COMPUTER (308), | | | | | | international editorial producer CHIN RUCKER | | | | | | (4) on 09/05/2012 6:44:08 | | | | | | AM | | | | + + + + + + + + | Specimen | + + | | + + + + + | Narrative | Performed At | + + + | Historically converted procedure from [facility] | EXTERNAL LAB | + + + [...] (500), | | | | | | international editorial producer CHIN RUCKER | | | | | | (4) on 09/05/2012 6:44:08 | | | | | | AM | | | | + + + + + + + + | Specimen | + + | | + + + + + | Narrative | Performed At | + + + | [facility] | [facility] LAB | + [...] of unspecified type of vessel, | | [place] or graft | + + | HTN (hypertension) Unspecified essential hypertension | + + documented in this encounter
--- OUTSIDE RECORDS SUMMARY | ~2019-07-26 | XMS | Encounter Summary ---
Demographics + + + | Address | BAD ADDRESS | | | [place] [address] | + + + | Home Phone [...] + | Author | [facility] | | | and [place] | + + + | Organization | [facility] | | | and [place] | + + + | Address | Unknown | + + + | Phone | Unavailable | + + + Support + + + + + | Name | Relationship | Address | Phone | + + + + + | Hector Mack | ECON | [address] | | | | | [place] [address] | | + + + + + | Najma Krishnamurthy | ECON | Unknown | | + + + + + | Hector Mack | ECON | [address] | | | | | [place] | | | | | [address] | | + + + + + | Najma Sanches | ECON | Unknown | | + + + + + Care Team Providers + +------+ + | Care Wheel And Axle Inspector Name | Role | Phone | [...] | 2018 | | HOSPITAL DERMATOLOGY | MASTER CONTROL SUPERVISOR [address] | results) | | | | CLINIC [address] | [place], | | | | | [address] [place], | [place] [address] | | | | | [place] [address] | [phone] | | | | | [phone] | | | +--------+ + + + [...]
--- OUTSIDE RECORDS SUMMARY | ~2019-07-26 | XMS | Encounter Summary ---
Demographics + + + | Address | [address] | | | [place] [address] | + + + | Home Phone [...] [place] | | | | | [address] | | + + + + + Care Team Providers + +------+ + | Care Sole Polisher Name | Role | Phone | [...] | | | | Mailcode: CH10U | [place], [place] | | | | | [facility] | [address] | | | | | and [place], | [phone] | | | | | [facility] | | | | | | Floor [place], [place] | | | | | | [address] | | | | | | [phone] | | | +--------+---------+ + + + [...] 1 Years of Education: N/A Occupational History [employer] Social History Main Topics Tobacco Use: Quit [...] PAPPAS | [address] | [place], [place] | | | [facility] CARE | [address] | [address] | | | TESTS | | | | + + + + + | [facility] OF CARE | [address] | [place], [place] | | | TESTS | [address] | [address] | | + + + + + documented in this encounter Visit Diagnoses + + | Diagnosis | + + | Urolithiasis - Primary Urinary calculus, unspecified | + + documented in this encounter"
--- OUTSIDE RECORDS SUMMARY | ~2019-07-26 | XMS | Encounter Summary ---
Demographics + + + | Address | [address] | | | [place] [address] | + + + | Home Phone [...] [place] | | | | | [address] | | + + + + + Care Team Providers + +------+ + | Care Screen Roller Name | Role | Phone | + [...] | MD [address] | ([place] ) | | | | Mailcode: CH10U | [place], [place] | | | | | [facility] | [address] | | | | | and Healing, | [phone] | | | | | [facility] | | | | | | Floor [place], [place] | | | | | | [address] | | | | | | [phone] | | | +--------+--------+ + + + [...]
--- OUTSIDE RECORDS SUMMARY | ~2019-07-26 | XMS | Encounter Summary ---
Demographics + + + | Address | [address] | | | [place] [address] | + + + | Home Phone [...] [place] | | | | | [address] | | + + + + + Care Team Providers + +------+ + | Care It Support Technician Name | Role | Phone | [...] (Patients | | | | Surgery at [facility] [address] | | has some | | | | [facility] | | concerns, pain | | | | for Health and | | issues) | | | | Healing [place] [address], | | | | | | [facility] Floor [place], | | | | | | [place] [address] | | | | | | [phone] | | | +--------+ + + + [...]
--- OUTSIDE RECORDS SUMMARY | ~2019-07-26 | XMS | Encounter Summary ---
Demographics + + + | Address | [address] [place] [address] | | | [place] [address] | + + + | Home Phone [...] [place] | | | | | [address] | | + + + + + Care Team Providers + +------+ + | Care Chemists Name | Role | Phone | + [...] Hernia of | Aysha Crow | s [address] | | | | | unspecified | [address] | [address] | | | | | site of | [address] | [facility] | | | | | abdominal | [place], [place] | Hospital, | | | | | cavity | [address] | 10th Floor | | | | | without | | [place], [place] | | | | | mention of | | [address] | | | | | obstruction | | Phone: | | | | | or gangrene | | [phone] | | | | | Procedures | | Fax: | | | | | CT ABDOMEN | | [phone] | | | | | WWO CONTRAST | | | | | | | LTD | | | +--------+--------+ + + + + Encounter Details +--------+ + + + + | Date | Type | Department | Care Team | Description | +--------+ + + + + | 08/05/ | Hospital | Radiology/Imaging | | | | 2008 | Encounter | Lab at [facility] [address] | | | | | | [address] [facility] | | | | | | for Health and | | | | | | Healing, [address], | | | | | | 3rd Floor | | | | | | [place], [place] | | | | | | [address] | | | | | | [phone] | | | +--------+ + + + [...]
--- OUTSIDE RECORDS SUMMARY | ~2019-07-26 | XMS | Encounter Summary ---
Demographics + + + | Address | BAD ADDRESS | | | [place] [address] | + + + | Home Phone [...] | Author | [facility] | | | and [place] | + + + | Organization | [facility] | | | and [...] | | | | | [place] [address] | | + + + + + | Najma Krishnamurthy | ECON | Unknown | | + + + + + | Hector Mack | ECON | [address] | | | | | [place] | | | | | [address] | | + + + + + | Najma Sanches | ECON | Unknown | | + + + + + Care Team Providers + +------+ + | Care Instructional Resource Teacher Name | Role | Phone | + +------+ + PCP | Unavailable | + +------+ + Encounter Details +--------+ + + + + | Date | Type | Department | Care Team | Description | +--------+ + + + + | 10/18/ | Hospital | [facility] | | | | 1999 | Encounter | MED CTR EMERGENCY | | | | | | CENTER [address] | | | | | | [place] | | | | | | [address] | | | | | | [phone] | | | +--------+ + + + [...]
--- OUTSIDE RECORDS SUMMARY | ~2019-07-26 | XMS | Encounter Summary ---
Demographics + + + | Address | [address] | | | [place] [address] | + + + | Home Phone [...] [place] | | | | | [address] | | + + + + + Care Team Providers + +------+ + | Care Special Education Supervisor Name | Role | Phone | [...] Dx) | | 2006 | Visit | [place] [address] | | | | | | [place] Mailcode: CH4S | | | | | | [facility] | | | | | | and Healing, | | | | | | Building 1, [address]th | | | | | | Floor [place], [place] | | | | | | [address] | | | | | | [phone] | | | +--------+---------+ + + + [...] Performed At | + + + | [id number] Estimated GFR = 60 mL/min/1.73 sq m if non- | [facility] | | [id number] Estimated GFR > 60 mL/min/1.73 sq m [...] + + + + + | [facility] DEPARTMENT OF | [address] | [place] [address] | | | PATHOLOGY | [address] | | | + + + + + | [facility] | [address] | [place] [address] | | | PATHOLOGY | [address] [...] + | [facility] | [address] | [place] [address] | | | PATHOLOGY | [address] | | | + + + + + | [facility] | [address] | [place] [address] | | | PATHOLOGY | [address] | | | + + + + + documented in this encounter Visit Diagnoses + + | Diagnosis | + + | Obesity - Primary Obesity, unspecified | + + documented in this encounter
--- OUTSIDE RECORDS SUMMARY | ~2019-07-26 | XMS | Encounter Summary ---
Demographics + + + | Address | BAD ADDRESS | | | [place] [address] | + + + | Home Phone [...] | [facility] | | | and [place] | + + + | Organization | [facility] | | [...] | | | | | [place] [address] | | + + + + + | Najma Krishnamurthy | ECON | Unknown | | + + + + + | Hector Mack | ECON | [address] | | | | | [place] | | | | | [address] | | + + + + + | Najma Sanches | ECON | Unknown | | + + + + + Care Team Providers + +------+ + | Care Rn Document Improvement Name | Role | Phone | + +------+ + PCP | Unavailable | + +------+ + Encounter Details +--------+ + + + + | Date | Type | Department | Care Team | Description | +--------+ + + + + | 02/18/ | Hospital | [facility] | | | | 2005 | Encounter | MED CTR EMERGENCY | | | | | | CENTER [address] | | | | | | [place], [place] | | | | | | [address] | | | | | | [phone] | | | +--------+ + + + [...]
--- OUTSIDE RECORDS SUMMARY | ~2019-07-26 | XMS | Encounter Summary ---
Demographics + + + | Address | [address] [place] [address] | | | [place] [address] | + + + | Home Phone [...] [place] | | | | | [address] | | + + + + + Care Team Providers + +------+ + | Care Home Health Care Case Manager Name | Role | Phone | [...] Hernia of | Aysha Crow | s [address] | | | | | unspecified | [address] | [address] | | | | | site of | [address] | Mary Becker [facility] | | | | | abdominal | [place], [place] | Hospital, | | | | | cavity | [address] | 10th Floor | | | | | without | | [place], [place] | | | | | mention of | | [address] | | | | | obstruction | | Phone: | | | | | or gangrene | | [phone] | | | | | Procedures | | Fax: | | | | | CT ABDOMEN | | [phone] | | | | | WWO CONTRAST | | | | | | | LTD | | | +--------+--------+ + + + + Encounter Details +--------+ + + + + | Date | Type | Department | Care Team | Description | +--------+ + + + + | 08/05/ | Hospital | Radiology/Imaging | | | | 2008 | Encounter | Lab at [facility] [address] | | | | | | [address] [facility] | | | | | | for Health and | | | | | | Healing, [address], | | | | | | 3rd Floor | | | | | | [place], [place] | | | | | | [address] | | | | | | [phone] | | | +--------+ + + + [...]
--- OUTSIDE RECORDS SUMMARY | ~2019-07-26 | XMS | Encounter Summary ---
Demographics + + + | Address | [address] | | | [place] [address] | + + + | Home Phone [...] [place] | | | | | [address] | | + + + + + Care Team Providers + +------+ + | Care Talking Books Library Clerk Name | Role | Phone | [...] 2005 | [address] | [address] | [phone] | | | | [address] | [address] Mailcode: RPB07 | | | | | | [place], [place] | | | | | | [address] | | | | | | [phone] | | | +--------+ + + + [...]
--- OUTSIDE RECORDS SUMMARY | ~2019-07-26 | XMS | Encounter Summary ---
Demographics + + + | Address | BAD ADDRESS | | | [place] [address] | + + + | Home [...] Author | [facility] | | | and [place] | + + + | Organization | [facility] [...] | | | | | [place] [address] | | + + + + + | Najma Krishnamurthy | ECON | Unknown | | + + + + + | Hector Mack | ECON | [address] | | | | | [place] | | | | | [address] | | + + + + + | Najma Sanches | ECON | Unknown | | + + + + + Care Team Providers + +------+ + | Care Cashier Courtesy Booth Name | Role | Phone | + +------+ + PCP | Unavailable | + +------+ + Encounter Details +--------+ + + + + | Date | Type | Department | Care Team | Description | +--------+ + + + + | 04/24/ | Hospital | [facility] | Conversion | Pain | | 2013 | Encounter | CONVERSION [address]P [address] | Transaction, | | | | | [address] | Provider Unknown | | | | | [place], [place] | [phone] | | | | | [address] | | | | | | [phone] | | | +--------+ + + + [...]
--- OUTSIDE RECORDS SUMMARY | ~2019-07-26 | XMS | Encounter Summary ---
Demographics + + + | Address | [address] | | | [place] [address] | + + + | Home Phone [...] [place] | | | | | [address] | | + + + + + Care Team Providers + +------+ + | Care Labor Contract Analyst Name | Role | Phone | [...] + + | 03/12/ | Hospital | [address] | Renato Chow MD | | | 2010 - | Encounter | [address] | | | | | | [facility] | | | | 03/13/ | | [place], [place] | | | | 2010 | | [address] | | | | | | [phone] | | | +--------+ + + + [...] re removal. Feel free to call the [facility] urology clinic as needed for any additional questions . Your Follow-Up Plan Follow-up information has not been specified. Other Discharge Orders and Instructions Please contact Urology clinic ([phone]) during business hours or the Urology resident container finishing inspector ([phone]) after business hours for: 1. Redness or [...] Physician: Renato Chow MD Patient: GERMAINE HEARD [id number] 24H events/Subjective: No events overnight. Pain well [...] 03/13/11 0659 03/13/11699 - 03/14/11 0659 Shift 3524-1782 3471-7844 1061-9308 Daily Total 5050-9833 6073-6785 0427-7013 Daily Total I N T A K E [address] 1080 1600 I.V. 1550 041 665 1125 5 5 Shift Total 1550 1320 1880 4750 5 5 O U T P U T Urine 800 599 592 9673 200 200 Shift Total 800 985 516 8944 200 200 Medication: acetaminophen (aka TYLENOL) tablet [...] [facility] | [address] | [place] [address] | | | PATHOLOGY | [address] [...] | [facility] | [address] | [place] [address] | | | PATHOLOGY | [address] [...] Alvarez, | | | | | | [facility] [place] [address] | | | | | | [phone] | | | | | | | | | | | | [email or web address] | | | | | Alma [...] [facility] | [address] | [place], [place] | | | [facility] | | [address] | | + + + + + [...]
--- OUTSIDE RECORDS SUMMARY | ~2019-07-26 | XMS | Encounter Summary ---
Demographics + + + | Address | BAD ADDRESS | | | [place] [address] | + + + | Home Phone | | + + + | Preferred Language | Unknown | + + + | Marital Status | | + + + | Faith Affiliation | 1077 | + + + | Race | Unknown | + + + | Ethnic Group | Unknown | + + + Author + + + | Author | [facility] | | | and [place] | + + + | Organization | [facility] | | [...] | | | | | [place] [address] | | + + + + + | Najma Krishnamurthy | ECON | Unknown | | + + + + + | Hector Mack | ECON | [address] | | | | | [place] | | | | | [address] | | + + + + + | Najma Sanches | ECON | Unknown | | + + + + + Care Team Providers + +------+ + | Care Sales Specialist Name | Role | Phone | + +------+ + PCP | Unavailable | + +------+ + Encounter Details +--------+ + + + + | Date | Type | Department | Care Team | Description | +--------+ + + + + | 07/26/ | Hospital | [facility] | | | | 1996 | Encounter | [facility] | | | | | | CENTER [address] | | | | | | [place] | | | | | | [address] | | | | | | [phone] | | | +--------+ + + + [...]
--- OUTSIDE RECORDS SUMMARY | ~2019-07-26 | XMS | Encounter Summary ---
Demographics + + + | Address | BAD ADDRESS | | | [place] [address] | + + + | Home Phone [...] + | Author | [facility] | | | and [place] | + + + | Organization | [facility] | | | [...] | | | | | [place] [address] | | + + + + + | Najma Krishnamurthy | ECON | Unknown | | + + + + + | Hector Mack | ECON | [address] | | | | | [place] | | | | | [address] | | + + + + + | Najma Sanches | ECON | Unknown | | + + + + + Care Team Providers + +------+ + | Care Associate Professor Of Archaeology Name | Role | Phone | + +------+ + PCP | Unavailable | + +------+ + Encounter Details +--------+ + + + + | Date | Type | Department | Care Team | Description | +--------+ + + + + | 11/23/ | Hospital | [facility] | Herberth Mayorga | | | 1996 | Encounter | MED CTR XRAY [address] [place] [place] [address] | | | | | [place] | [place], [place] | | | | | [place] [address] | [address] | | | | | [phone] | [phone] | | | | | | | [...]
--- OUTSIDE RECORDS SUMMARY | ~2019-07-26 | XMS | Encounter Summary ---
Demographics + + + | Address | BAD ADDRESS | | | [place] [address] | + + + | Home Phone [...] | Author | [facility] | | | and [place] | + + + | Organization | [facility] | | | and [...] | | | | | [place] [address] | | + + + + + [...] Team Providers + +------+ + | Care Cna Pct Name | Role | Phone | + +------+ + | Tuan Chan MD | PCP | | + +------+ + Encounter Details +--------+ + + + + | Date | Type | Department | Care Team | Description | +--------+ + + + + | 05/18/ | Hospital | [facility] | Oralia Koo | | | 2019 | Encounter | HOSPITAL GROUND | [address] | | | | | [address] | [facility] | [address] | [address] | [place] [address] | | | | | [place], [place] | [phone] | | | | | [address] | | | | | | [phone] | | | +--------+ + + + [...]
--- OUTSIDE RECORDS SUMMARY | ~2019-07-26 | XMS | Encounter Summary ---
Demographics + + + | Address | BAD ADDRESS | | | [place] [address] | + + + | Home Phone [...] Author | [facility] | | | and [place]ana | + + + | Organization | [facility] | | | and [place]ana | + + + | Address | Unknown | + + + | Phone | Unavailable | + + + Support + + + + + | Name | Relationship | Address | Phone | + + + + + | Hector Blankenship | ECON | [address] | | | | | [place] [address] | | + + + + + | Najma Krishnamurthy | ECON | Unknown | | + + + + + | Hector Blankenship | ECON | [address] | | | | | [place] | | | | | [address] | | + + + + + | Najam Sanches | ECON | Unknown | | + + + + + Care Team Providers + +------+ + | Care Machine Welt Butter Name | Role | Phone | + [...] + + | 05/18/ | Hospital | [facility] | Oralia Nevarez | Hypokalemia (Primary | | 2018 - | Encounter | HOSPITAL MED SURG | [address] | Dx); Right hand | | | | [address] | [address] | weakness; 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 Weinstein ([facility]) Primary Discharge Dx: Active Hospital Problems [...] has remained stable on repeat labs. 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 Biop sied at [facility] in Jan 2018. Reviewed by dermatopathologist. [...] of urine. They report living in [facility] trailer in [place] for the winter. APS report being made, however she is going to a s afe living situation at [facility] in [place]. FEN:(albumin <= 3.2 g/dL) VTE Prophylxis low molecular weight heparin Code Status: Full Code Anticipated Date of Discharge: 05/22/[address] conditions, weather. Anticipated Discharge needs: PT, OT and speech therapy. Post-Hospital Care: Intermediate Facility in [facility]. She has been accepted by [facility]. [...] pH, Urine 5.5 5.0 - 8.0 Specific [place] 1.025 1.005 - 1.030 Protein, Urine 30 [...] Ct Angiogram Head Neck Result Date: 05/20/2018 [place] [address] NAME: GERMAINE BARBOUR DATE: 05/20/2018 : 0 1945 PT GENDER: F ROOM: IN Physician: ORALIA NEVAREZ PID3: [id number] CC TO: MR#: PROCEDURE: CTA BRAIN AND [...] thyroid gland. 1 :03 PM at workstation [id number] Pending study results on DC: Unresulted Labs [...] aka: PERCOCET Condition on Discharge: Stable Disposition: Intermediate Facility Current Support: Family daughter Najma. Services Ordered: PT, OT, TELERADIOLOGIST. See SNF transfer note for details. Follow-up Information [facility] medical claims specialist. Discharge Instructions Please continue: - physical therapy [...] this encounter Progress Notes Trinidad Miranda, Health Land Classifier - 05/21/2018 2:43 PM PSTTransport arrangements madrigal ve been finalized. Pharmacy for scripts have been finalized. Family has been notified. Queenie ctronically signed by Trinidad Miranda, Health Land Classifier at 05/21/2018 2:44 PM PSTOralia Bhagat MD [...] on trunk, back, palms. Biop sied at [facility] in Jan 2018. Reviewed by dermatopathologist. Differential based on path findings is Proctor's disease, Ninfa-Ninfa disease, Darier disease and eczematous [...] PT, OT and speech therapy. Post-Hospital Care: Intermediate Facility in [facility]. She has been accepted by Hanny Killian. [...] Ct Angiogram Head Neck Result Date: 05/20/[address] [address] NAME: GERMAINE BARBOUR DATE: 05/20/2018 : 0 1945 PT GENDER: F ROOM: IN Physician: ORALIA NEVAREZ PID3: [id number] CC TO: MR#: PROCEDURE: CTA BRAIN AND [...] thyroid gland. 1 :03 PM at workstation [id number] Documentation assistance provided by Jolie Pimentel, medical student. I repeated all eleme nts of the history and physical and have edited all parts of the note to reflect my evaluati on. Electronically signed: Oralia Nevarez MD 05/21/2018 13:18 DATE OF SERVICE: 05/21/2018 rinidad Miranda, Health Land Classifier - 05/20/2018 3:[facility] [place] [place] [facility] Germaine. Working on transport options. [facility] transport is working on transport for Friday by 11. rinidad Miranda, Health Unit Coordin ator - 05/20/2018 10:55 AM PSTSpoke with Najma Xiong-daughter. She has made preliminary arr angements for Germaine to be placed at [facility] in [place]. Will make phone contact with them today. Faxed referral notes to center medical and lab director for review. El ectronically signed by Trinidad Miranda Health Land Classifier at 05/20/2018 2:26 PM PSTAlexandria castrejon, Oralia [...] on trunk, back, palms. biop sied at [facility] in Jan 2018. Reviewed by dermatopathologist. Differential based on path findings is Proctor's disease, Ninfa-Ninfa disease, Darier disease and eczematous [...] resources, housing resources, CHW support. Post-Hospital Care: Intermediate Facility vs SNF depending on improvement in cognitive i mpairment. Subjective Germaine pulled out IV yesterday and it was left out and ceftriaxone given IM. Daughter Elana vu who lives in [place] has called and is interested in bringing Germaine closer to her. July ischarge to SNF near [facility]. Germaine has no complaints. Right hand weakness [...] Ct Head Wo Contrast Result Date: 05/18/2018 [place] [address] NAME: GERMAINE BARBOUR Jesus DATE: 05/18/2018 : 0 1945 PT GENDER: F ROOM: ER Physician: ORALIA NEVAREZ PID3: [id number] CC TO: MR#: This report includes an [...] evaluation with MRI if indicated. at workstation [employer] ADDENDUM #1 Add communi cation: Communication: Relayed findings to Dr. Nevarez on 05/18/18 at 4254. Gave her contact info for Dr. Nieves./earle Transcribed by: EARLE at 05/18/2018 5:37 PM at workstation [employer] Xr Chest Ap Portable Result Date: 05/18/[address] [address] NAME: ANTONIETTA BLANKENSHIP GERMAINE Jesus DATE: 05/18/2018 : 0 1945 PT GENDER: F ROOM: ER Physician: ORALIA NEVAREZ PID3: [id number] CC TO: MR#: PROCEDURE: AP PORTABLE CHEST [...] Vas Carotid Duplex Bilateral Result Date: 05/19/[address] [address] NAME: GERMAINE BARBOUR DATE: 05/19/2018 : 0 1945 PT GENDER: F ROOM: IN Physician: ORALIA NEVAREZ PID3: [id number] CC TO: MR#: PROCEDURE: ULTRASOUND BILATERAL CAROTID [...] Right 3 + Vw Result Date: 05/18/[address] [address] NAME: GERMAINE BARBOUR DATE: 05/18/2018 : 0 1945 PT GENDER: F ROOM: ER Physician: ORALIA NEVAREZ PID3: [id number] CC TO: MR#: PROCEDURE: RIGHT HAND - [...] calcifications and sof t tissue swelling. at [employer] [facility]-[id number] Electronically signed: Oralia Nevarez MD 05/20/2018 10:37 [...] on trunk, back, palms. biop sied at [facility] in Jan 2018. Reviewed by dermatopathologist. Differential based on path findings is Proctor's disease, Ninfa-Ninfa disease, Darier disease and eczematous process. - plan to consult [facility] derm by phone prior to discharge. [...] and Trey araujo will take shuttle to [place] to take care of their dog. Review [...] in right hand but not light touch. [place] ed to person but not place or [...] pH, Urine 5.5 5.0 - 8.0 Specific [place] 1.025 1.005 - 1.030 Protein, Urine 30 [...] Ct Head Wo Contrast Result Date: 05/18/2018 [place] [address] NAME: GERMAINE BARBOUR DATE: 05/18/2018 : 0 1945 PT GENDER: F ROOM: ER Physician: ORALIA NEVAREZ PID3: [id number] CC TO: MR#: This report includes an [...] evaluation with MRI if indicated. at workstation [id number] ADDENDUM #1 Add communi cation: Communication: Relayed findings to Dr. Nevarez on 05/18/18 at 4148. Gave her contact info for Dr. Nieves./hs Transcribed by: HS at 05/18/2018 5:37 PM at workstation [id number] Xr Chest Ap Portable Result Date: 05/18/[address] [address] NAME: GERMAINE BARBOUR DATE: 05/18/2018 : 0 1945 PT GENDER: F ROOM: ER Physician: ORALIA NEVAREZ PID3: [id number] CC TO: MR#: PROCEDURE: AP PORTABLE CHEST [...] evidence of acute cardiopulmonary disease. at workstation [id number] Xr Hand Right 3 + Vw Result Date: 05/18/[address] [address] NAME: GERMAINE BARBOUR DATE: 05/18/2018 : 0 1945 PT GENDER: F ROOM: ER Physician: ORALIA NEVAREZ PID3: [id number] CC TO: MR#: PROCEDURE: RIGHT HAND - [...] calcifications and sof t tissue swelling. at [employer] [facility]-[id number] Electronically signed: Oralia Nevarez MD 05/19/2018 12:47 [...] D?MRN: | | | | | | [id number] | | | [id number] | | | riteri | | | [...] | | | St. | | | [place] | | | y | | | [...] | | | St. | | | [place] | | | y | | | [...] | | | St. | | | [place] | | | y H. | | [...] | | | St. | | | [place] | | | y H. | | [...] | | | St. | | | [place] | | | y H. | | [...] | | | St. | | | [place] | | | y H. | | [...] | | | [place] | | | [facility], | | | [place] - | | | info@c | | [...] [facility] | [address] | [place], [place] | [phone] | | HOSPITAL LABORATORY | | [address] | | + + + + + [...] | + + + + + | [facility] | [address] | [place], [place] | [phone] | | HOSPITAL LABORATORY | | [address] | | + + + + + [...] 82 | 70 - 110 mg/dL | [facility] | | | | | | COMMUNITY [...] not | >60Comment: GLOMERULAR | >=60 | [facility] | | | | FILTRATION | mL/min/1.73m2 | [facility] | | | [place]IAN | RATE,ESTIMATED | | HOSPITAL | | | | mL/min/1.70l9Eule than | | LABORATORY | | | [...] 7.8 (L) | 8.3 - 10.0 | [facility] | | | | | mg/dL | [...] | + + + + + | [facility] | [address] | [place], [place] | [phone] | | HOSPITAL LABORATORY | | [address] | | + + + + + CT Angiogram Head Neck (05/20/2018 12:07 PM PST) + + | Specimen | + + | | + + + + + | Narrative | Performed At | + + + | [address] | [facility] | | [place], [place] [address] | | | NAME: GERMAINE BARBOUR DATE: 05/20/2018 : | | | 1945 PT GENDER: F ROOM: IN Physician: ORALIA | | | ROQUE PID3: [id number] CC TO: MR#: | | | PROCEDURE: [...] | | 05/20/2018 1:03 PM at workstation [id number] | | + + + + + | Procedure Note | + + | Javier Gay Results In - 05/20/2018 1:15 PM [facility] | | [address] | | [place], [place] [address] | | | | | | NAME: GERMAINE BARBOUR DATE: 05/20/2018 | | : 1945 PT GENDER: F ROOM: IN | | Physician: ORALIA NEVAREZ PID3: [id number] | | CC TO: MR#: | | [...] Testing Performed at: [facility] [place] [facility] CLIA: [id number] - [address] | REFERENCE LAB | | [place] [address] | [facility] | + + + + + + + + | Performing | Address | City/State/Zipcode | Phone Number | | Organization | | | | + + + + + | REFERENCE LAB | [address] | [place] | [phone] | | [facility] | | [address] | | + + + + + | REFERENCE LAB | [address] | [place] | [phone] | | [facility] | | [address] | | + + + + + [...] | + + + + + | [facility] | [address] | [place], [place] | [phone] | | HOSPITAL LABORATORY | | [address] | | + + + + + [...] | + + + + + | [facility] | [address] | [place], [place] | [phone] | | HOSPITAL LABORATORY | | [address] | | + + + + + Magnesium (05/20/2018 6:50 AM PST) + +-------+ + + + | Component | Value | Ref Range | Performed | Pathologist | | | | | At | Signature | + +-------+ + + + | Magnesium | 1.9 | 1.8 - 2.4 mg/dL | [facility] | | | | | [...] | + + + + + | [facility] | [address] | [place], [place] | [phone] | | HOSPITAL LABORATORY | | [address] | | + + + + + [...] | | | FILTRATION | mL/min/1.73m2 | [facility] | | | ALB[place]IAN | RATE,ESTIMATED | | HOSPITAL | | | | mL/min/1.15w8Bldw than | | LABORATORY | | | [...] | + + + + + | [facility] | [address] | [place], [place] | [phone] | | HOSPITAL LABORATORY | | [address] | | + + + + + [...] | MPV | 11.1 | fL | [facility] | | | | | | [facility] | | | | | | HOSPITAL | | | | | | LABORATORY | | + + + + + + + + | Specimen | + + | Blood | + + + + + + + | Performing | Address | City/State/Zipcode | Phone Number | | Organization | | | | + + + + + | [facility] | [address] | [place], [place] | [phone] | | HOSPITAL LABORATORY | | [address] | | + + + + + VAS Carotid Duplex Bilateral (05/19/2018 8:37 AM PST) + + | Specimen | + + | | + + + + + | Narrative | Performed At | + + + | [address] | [facility] | | [place], [place] [address] | | | NAME: GERMAINE BARBOUR DATE: 05/19/2018 : | | | 1945 PT GENDER: F ROOM: IN Physician: ORALIA | | | ROQUE PID3: [id number] CC TO: MR#: | | | PROCEDURE: [...] | | 05/19/2018 3:20 PM at workstation [id number] | | + + + + + | Procedure Note | + + | Victor Hugo, Rad Results In - 05/19/2018 3:50 PM PST [facility] | | [address] [facility] | | [place], [place] [address] | | | | | | NAME: ANTONIETTA BLANKENSHIPGERMAINE DATE: 05/19/2018 | | : 1945 PT GENDER: F ROOM: IN | | Physician: ORALIA NEVAREZ PID3: [id number] | | CC TO: MR#: | | [...] | | | at | | workstation [id number] | + + + +---------+ + + [...] | + + + + + | [facility] | [address] | [place], [place] | [phone] | | HOSPITAL LABORATORY | | [address] | | + + + + + [...] | mL/min/1.73m2 | COMMUNITY | | | ALB[place]IAN | RATE,ESTIMATED | | HOSPITAL | | | | mL/min/1.56t3Edmu than | | LABORATORY | | | [...] | + + + + + | [facility] | [address] | [place], [place] | [phone] | | HOSPITAL LABORATORY | | [address] | | + + + + + Magnesium (05/19/2018 4:50 AM PST) + +-------+ + + + | Component | Value | Ref Range | Performed | Pathologist | | | | | At | Signature | + +-------+ + + + | Magnesium | 1.8 | 1.8 - 2.4 mg/dL | [facility] | | | | | | COMMUNITY [...] | + + + + + | [facility] | [address] | [place], [place] | [phone] | | HOSPITAL LABORATORY | | [address] | | + + + + + [...] | + + + + + | [facility] | [address] | [place], [place] | [phone] | | HOSPITAL LABORATORY | | [address] | | + + + + + XR Hand Right 3 + Vw (05/18/2018 4:55 PM PST) + + | Specimen | + + | | + + + + + | Narrative | Performed At | + + + | [address] | [facility] | | [place], [place] [address] | | | NAME: GERMAINE BARBOUR DATE: 05/18/2018 : | | | 1945 PT GENDER: F ROOM: ER Physician: ORALIA | | | ROQUE PID3: [id number] CC TO: MR#: | | | PROCEDURE: [...] | | at | | | workstation [id number] | | + + + + + | Procedure Note | + + | Javier Gay Results In - 05/18/2018 5:05 PM [facility] | | [address] [facility] | | [place], [place] [address] | | | | | | NAME: ANTONIETTA BLANKENSHIPGERMAINE DATE: 05/18/2018 | | : 1945 PT GENDER: F ROOM: ER | | Physician: ORALIA NEVAREZ PID3: [id number] | | CC TO: MR#: | | [...] | | | at workstation | | [facility]-561-363 | | | | | | | [...] Performed At | + + + | [address] | [facility] | | [place], [place] [address] | | | NAME: ANTONIETTA BLANKENSHIP GERMAINE Jesus DATE: 05/18/2018 : | | | 1945 PT GENDER: F ROOM: ER Physician: ORALIA | | | ROQUE PID3: [id number] CC TO: MR#: | | | This [...] | with MRI if indicated. at workstation [id number] ADDENDUM #1 | | | Add communication: Communication: Relayed findings to | | | Roque on 05/18/18 at 1736. Gave her contact info for Dr. Nieves./ | | | Transcribed by: at 05/18/2018 5:37 PM at workstation [id number] | | + + + + + | Procedure Note | + + | Victor Hugo, Rad Results In - 05/18/2018 6:05 PM [facility] | | [address] [facility] | | [place], [place] [address] | | | | | | NAME: GERMAINE BARBOUR DATE: 05/18/2018 | | : 1945 PT GENDER: F ROOM: ER | | Physician: ORALIA NEVAREZ PID3: [id number] | | CC TO: MR#: | | [...] | | | at workstation | | [facility]-[id number] | | | | ADDENDUM #1 | | | | | | Add communication: | | Communication: Relayed findings to Dr. Nevarez on 05/18/18 at 1736. Gave her | | contact info for Dr. Nieves./hs | | | | Transcribed by: HS at 05/18/2018 5:37 PM | | | | at workstation | | [employer] [facility]PER[facility]-[id number] | + + + +---------+ + + [...] | + + + + + | [facility] | [address] | [place], [place] | [phone] | | HOSPITAL LABORATORY | | [address] | | + + + + + [...] - 1.030 | [facility] | | | [place], | | | COMMUNITY | | | [...] | + + + + + | [facility] | [address] | [place], [place] | [phone] | | HOSPITAL LABORATORY | | [address] | | + + + + + [...] | + + + + + | [facility] | [address] | [place], [place] | [phone] | | HOSPITAL LABORATORY | | [address] | | + + + + + XR Chest AP Portable (05/18/2018 3:34 PM PST) + + | Specimen | + + | | + + + + + | Narrative | Performed At | + + + | [address] | [facility] | | [place], [place] [address] | | | NAME: ANTONIETTA BLANKENSHIPGERMAINE DATE: 05/18/2018 : | | | 1945 PT GENDER: F ROOM: ER Physician: ORALIA | | | ROQUE PID3: [id number] CC TO: MR#: | | | PROCEDURE: [...] evidence of acute cardiopulmonary disease. at workstation [id number] | | | | | + + + + + | Procedure Note | + + | Victor Hugo, Rad Results In - 05/18/2018 3:50 PM PST [facility] | | [address] [facility] | | [place], [place] [address] | | | | | | NAME: ANTONIETTA BLANKENSHIP GERMAINE Jesus DATE: 05/18/2018 | | : 1945 PT GENDER: F ROOM: ER | | Physician: ORALIA NEVAREZ PID3: [id number] | | CC TO: MR#: | | [...] | | | at | | workstation [id number] | | | | | | | [...] | + + + + + | [facility] | [address] | [place], [place] | [phone] | | HOSPITAL LABORATORY | | [address] | | + + + + + Troponin I (05/18/2018 3:11 PM PST) + +-------+ + + + | Component | Value | Ref Range | Performed | Pathologist | | | | | At | Signature | + +-------+ + + + | Troponin I | 0.030 | 0.000 - 0.090 | [facility] | | | | | ng/mL [...] hours are at higher risk of or [place] at 48 | HOSPITAL | | hours [...] | + + + + + | [facility] | [address] | [place], [place] | [phone] | | HOSPITAL LABORATORY | | [address] | | + + + + + B Type Natriuretic Peptide (05/18/2018 3:11 PM PST) + + + + + + | Component | Value | Ref Range | Performed | Pathologist | | | | | At | Signature | + + + + + + | NT-proBNP | 1,571 (H) | 0 - 125 pg/mL | [facility] | | | | | [...] | + + + + + | [facility] | [address] | [place], [place] | [phone] | | HOSPITAL LABORATORY | | [address] | | + + + + + [...] | + + + + + | [facility] | [address] | [place], [place] | [phone] | | HOSPITAL LABORATORY | | [address] | | + + + + + Lipase (05/18/2018 3:11 PM PST) + +-------+ + + + | Component | Value | Ref Range | Performed | Pathologist | | | | | At | Signature | + +-------+ + + + | Lipase | 98 | 73 - 393 U/L | [facility] | | | | | [...] | + + + + + | [facility] | [address] | [place], [place] | [phone] | | HOSPITAL LABORATORY | | [address] | | + + + + + [...] | Creatinine | 0.98 | >0.60-<1.30 | [facility] | | | | | mg/dL | [facility] | | | | | | HOSPITAL | | | | | | LABORATORY | | + + + + + + | eGFR if not | 56 (L)Comment: | >=60 | [facility] | | | | GLOMERULAR FILTRATION | mL/min/1.73m2 | [facility] | | | [place]IAN | RATE,ESTIMATED | | HOSPITAL | | | | mL/min/1.23q9Pqap than | | LABORATORY | | | [...] 8.2 (L) | 8.3 - 10.0 | [facility] | | | | | mg/dL | [facility] | | | | | | [...] | + + + + + | [facility] | [address] | [place], [place] | [phone] | | HOSPITAL LABORATORY | | [address] | | + + + + + [...] | + + + + + | [facility] | [address] | [place], [place] | [phone] | | HOSPITAL LABORATORY | | [address] | | + + + + + [...]
--- OUTSIDE RECORDS SUMMARY | ~2019-07-26 | XMS | Encounter Summary ---
Demographics + + + | Address | [address] | | | [place] [address] | + + + | Home Phone [...] [place] | | | | | [address] | | + + + + + Care Team Providers + +------+ + | Care Straight Knife Cutter Machine Name | Role | [...] | | | | | Procedures | [facility] | Health and | | | | | Consult | 2010 | Healing | | | | | | [place], | [address], | | | | | | [place] [address] | [address]th Floor | | | | | | Phone: | [place], [place] | | | | | | [phone] | [address] | | | | | | Fax: | Phone: | | | | | | [phone] | [phone] | | | | | | | Fax: | | | | | | | [phone] | +--------+--------+ + + + + Encounter Details +--------+---------+ + + + | Date | Type | Department | Care Team | Description | +--------+---------+ + + + | 08/05/ | Office | Dermatology | Khoa Manuel, | Rash and Other | | 2008 | Visit | Medical at [facility] [address] | ,PhD Castro | Nonspecific Skin | | | | [facility] | Allergy Asthma | Eruption (Primary | | | | for Health and | Dermatology [address] | Dx) | | | | Healing [address], | [facility] [address] | | | | | 16th Floor | [place] [address] | | | | | [place], [place] | [phone] | | | | | [address] | | | | | | [phone] | | | +--------+---------+ + + + [...] plan of care. Khoa Manuel MD, PhD Bull Gang Supervisor, Department of Dermatology [facility] [place] 08/05/2008 Genoveva Galeano Md - 08/05/2008 2:39 [...] skin culture done by Dr. Chan in [facility] prior to her gastric by pass [...] the day. She has never seen a research and development specialist. The patient's dermatology intake form was reviewed, signed, and dated. Her relevant PMH, F H, and SH includes: PAST MEDICAL HISTORY: --Gastric bypass in 02/[address] Johnson, used to weigh 450 pounds --s/p abdominoplasty in 06/06 --s/p CABG in 2000 in [facility] --s/p cholecystectomy 35 years [...] Natalie Olsen M.D. Resident, Department of Dermatology [facility] documented in th is encounter Plan of Treatment + + +--------+ + + | Name | Type | Priori | Associated Diagnoses | Order Schedule | | | | ty | | | + + +--------+ + + | GA BIOPSY OF SKIN | Procedures | Routin [...]
--- OUTSIDE RECORDS SUMMARY | ~2019-07-26 | XMS | Encounter Summary ---
Demographics + + + | Address | [address] | | | [place] [address] | + + + | Home Phone [...] [place] | | | | | [address] | | + + + + + Care Team Providers + +------+ + | Care Ordnance Truck Installation Supervisor Name | Role | Phone | [...] (Patients | | | | Surgery at [facility] [address] | | has some | | | | [facility] | | concerns, pain | | | | for Health and | | issues) | | | | Healing [place] [address], | | | | | | [facility] Floor [place], | | | | | | [place] [address] | | | | | | [phone] | | | +--------+ + + + [...]
--- OUTSIDE RECORDS SUMMARY | ~2019-07-26 | XMS | Encounter Summary ---
Demographics + + + | Address | BAD ADDRESS | | | [place] [address] | + + + | Home Phone [...] | Author | [facility] | | | and [place] | + + + | Organization | [facility] | | [...] | | | | | [place] [address] | | + + + + + | Najma Krishnamurthy | ECON | Unknown | | + + + + + | Hector Mack | ECON | [address] | | | | | [place] | | | | | [address] | | + + + + + | Najma Sanches | ECON | Unknown | | + + + + + Care Team Providers + +------+ + | Care Lehr Tender Name | Role | Phone | [...] 2018 | | [facility] | C, MENTAL HEALTH COORDINATOR [address] | skin eruption | | | | CENTER [address] | [address] [place] | (Primary Dx); Severe | | | | [place] | [address] | uncontrolled | | | | [address] | | hypertension; | | | | [phone] | | Noncompliance with | | | [...] D?MRN: | | | | | | [id number] | | | [id number] | | | ecurit | | | [...] | | | St. | | | [place] | | | y | | | [...] | | | [phone] | | | [phone] | | | .These | | | [...] | | | St. | | | [place] | | | y H. | | [...] | | | St. | | | [place] | | | y H. | | [...] | | | St. | | | [place] | | | y | | | [...]
--- OUTSIDE RECORDS SUMMARY | ~2019-07-26 | XMS | Encounter Summary ---
Demographics + + + | Address | [address] [facility] [address] | | | [place] [address] | + + + | Home Phone [...] [place] | | | | | [address] | | + + + + + Care Team Providers + +------+ + | Care Analytical Strategist Name | Role | Phone | + [...] | | | | | | | [place], [place] | | | | | | | [address] | | | | | | | Phone: | | | | | | | [phone] | | | | | | | Fax: | | | | | | | [phone] | +--------+--------+ + + + + Encounter Details +--------+---------+ + + + | Date | Type | Department | Care Team | Description | +--------+---------+ + + + | 05/09/ | Office | Plastic and | Resident, Pls | Panniculitis | | 2008 | Visit | Reconstructive | [address] | (Primary Dx) | | | | Surgery at [facility] [address] | [place] [address] | | | | | [facility] | | | | | | for Health and | | | | | | Healing Building 1, | | | | | | 5th Floor [place], | | | | | | [place] [address] | | | | | | [phone] | | | +--------+---------+ + + + [...] 1 Years of Education: N/A 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
--- OUTSIDE RECORDS SUMMARY | ~2019-07-26 | XMS | Encounter Summary ---
Demographics + + + | Address | [address] | | | [place] [address] | + + + | Home Phone [...] [place] cam[place] | | | | | [address] | | + + + + + Care Team Providers + +------+ + | Care Regional Forester Name | Role | Phone | + [...]
--- OUTSIDE RECORDS SUMMARY | ~2019-07-26 | XMS | Encounter Summary ---
Demographics + + + | Address | [address] [address] | | | [place] [address] | + + + | Home Phone [...] [place] | | | | | [address] | | + + + + + Care Team Providers + +------+ + | Care Title Officer Name | Role | Phone | [...] [id number] | | | | | | [place], [place] | | | | | | [address] | | | | | | [phone] | | | +--------+ + + + [...] | | + +---------+--------+ + + | RAAM SNYDER W | Imaging | Routin | [...] [place] DEPARTMENT OF | [address] [facility] | [place] [address] | | | PATHOLOGY | [address] | | | + + + + + | [place] DEPARTMENT OF | [address] [facility] | [place] [address] | | | PATHOLOGY | [address] [...] + | [facility] | [facility] | [place] [address] | | | PATHOLOGY | [address] | | | + + + + + | [facility] | [facility] | [place] [address] | | | PATHOLOGY | [address] [...] DEPARTMENT OF | [address] | [place] [address] | | | PATHOLOGY | [address] | | | + + + + + | [facility] DEPARTMENT OF | [address] | [place] [address] | | | PATHOLOGY | [address] [...] + + + + + | [facility] DEPARTMENT OF | [address] | [place] [address] | | | PATHOLOGY | [address] | | | + + + + + | [facility] DEPARTMENT | [address] | [place] [address] | | | PATHOLOGY | [address] [...] | [facility] | [address] [facility] | [place] [address] | | | PATHOLOGY | [address] | | | + + + + + | [facility] | [facility] | [place] [address] | | | PATHOLOGY | [address] [...] DEPARTMENT OF | [address] | [place] [address] | | | PATHOLOGY | [address] | | | + + + + + | [facility] DEPARTMENT OF | [address] | [place] [address] | | | PATHOLOGY | [address] | | | + + + + + BASIC METABOLIC SET (02/08/2006 6:43 AM PST) + +---------+ + + + | Component | Value | Ref Range | Performed | Pathologist | | | | | At | Signature | + +---------+ + + + | GLUCOSE, | 102 | 65 - 110 mg/dL | [facility] | | | PLASMA | | [...] | [facility] | [address] [facility] | [place] [address] | | | PATHOLOGY | [address] | | | + + + + + | [facility] DEPARTMENT OF | [address] [facility] | [place] [address] | | | PATHOLOGY | [address] [...] + | [facility] | [facility] [address] | [place] [address] | | | PATHOLOGY | [address] | | | + + + + + | [facility] | [address] [place] [address] | [place] [address] | | | PATHOLOGY | [address] [...] DEPARTMENT OF | [address] | [place] [address] | | | PATHOLOGY | [address] | | | + + + + + | [facility] DEPARTMENT | [address] | [place] [address] | | | PATHOLOGY | [address] | | | + + + + + MAGNESIUM, PLASMA (02/08/2006 4:30 AM PST) + +-------+ + + + | Component | Value | Ref Range | Performed | Pathologist | | | | | At | Signature | + +-------+ + + + | MAGNESIUM,P | 2.0 | 1.8 - 2.5 mg/dL | [facility] | | | LASMA | | [...] | [facility] | [address] [facility] | [place] [address] | | | PATHOLOGY | [address] | | | + + + + + | [facility] | [address] [facility] | [place] [address] | | | PATHOLOGY | [address] [...] + + + + + | [facility] DEPARTMENT OF | [facility] [address] | [place] [address] | | | PATHOLOGY | [address] | | | + + + + + | [place] DEPARTMENT OF | [facility] [address] | [place] [address] | | | PATHOLOGY | [address] [...] + + + + + | [facility] DEPARTMENT OF | [address] [facility] | [place] [address] | | | PATHOLOGY | [address] | | | + + + + + | [facility] DEPARTMENT OF | [address] | [place] [address] | | | PATHOLOGY | [address] [...] + + + + + | [facility] DEPARTMENT OF | [address] [facility] | [place] [address] | | | PATHOLOGY | [address] | | | + + + + + | [facility] DEPARTMENT OF | [address] [facility] | [place] [address] | | | PATHOLOGY | [address] [...] + + + + + | [facility] DEPARTMENT | [facility] | [place] [address] | | | PATHOLOGY | [address] | | | + + + + + | [facility] DEPARTMENT OF | [facility] | [place] [address] | | | PATHOLOGY | [address] [...] + + + + + | [facility] DEPARTMENT OF | [address] [facility] | [place] [address] | | | PATHOLOGY | [address] | | | + + + + + | [place] DEPARTMENT OF | [address] [facility] | [place] [address] | | | PATHOLOGY | [address] [...] DEPARTMENT OF | [address] | [place] [address] | | | PATHOLOGY | [address] | | | + + + + + | [facility] DEPARTMENT OF | [address] | [place] [address] | | | PATHOLOGY | [address] | | | + + + + + PHOSPHORUS, PLASMA (02/07/2006 4:30 AM PST) + +-------+ + + + | Component | Value | Ref Range | Performed | Pathologist | | | | | At | Signature | + +-------+ + + + | PHOSPHORUS, | 3.4 | 2.4 - 4.7 mg/dL | [facility] | | | PLASMA | | [...] | [facility] | [address] [facility] | [place] [address] | | | PATHOLOGY | [address] | | | + + + + + | [facility] | [facility] | [place] [address] | | | PATHOLOGY | [address] [...] + + + + + | [facility] DEPARTMENT OF | [address] | [place] [address] | | | PATHOLOGY | [address] | | | + + + + + | [facility] DEPARTMENT OF | [address] | [place] [address] | | | PATHOLOGY | [address] [...] 10.2 | 4.4 - 11.0 K/cu | [facility] | | | COUNT | | [...] | + + + + + | [facility] | [address] [facility] | [place] [address] | | | PATHOLOGY | [address] | | | + + + + + | [facility] DEPARTMENT OF | [address] [facility] | [place] [address] | | | PATHOLOGY | [address] [...] + + + + + | [facility] DEPARTMENT | [address] | [place] [address] | | | PATHOLOGY | [address] | | | + + + + + | [facility] | [address] | [place] [address] | | | PATHOLOGY | [address] [...] No. | | | | | | [phone], medical | | | | | | record [phone], ICD-9 | | | | | | [...] + | [facility] | [facility] | [place] [address] | | | PATHOLOGY | [address] | | | + + + + + | [facility] | [facility] | [place] [address] | | | PATHOLOGY | [address] [...] + + + + + | [facility] DEPARTMENT | [address] [facility] | [place] [address] | | | PATHOLOGY | [address] | | | + + + + + | [facility] DEPARTMENT OF | [address] [facility] | [place] [address] | | | PATHOLOGY | [address] [...] | [facility] | [address] | [place] [address] | | | PATHOLOGY | [address] | | | + + + + + | [facility] | [facility] [address] | [place] [address] | | | PATHOLOGY | [address] [...] + + + + + | [facility] DEPARTMENT OF | [address] | [place] [address] | | | PATHOLOGY | [address] | | | + + + + + | [facility] DEPARTMENT OF | [address] | [place] [address] | | | PATHOLOGY | [address] [...] + + + + + | [facility] DEPARTMENT OF | [address] | [place] [address] | | | PATHOLOGY | [address] | | | + + + + + | [facility] DEPARTMENT OF | [address] | [place] [address] | | | PATHOLOGY | [address] [...] cmnt | 1.8 - 2.5 mg/dL | [facility] | | | LASMA | | [...] DEPARTMENT OF | [address] | [place] [address] | | | PATHOLOGY | [address] | | | + + + + + | [facility] DEPARTMENT OF | [address] | [place] [address] | | | PATHOLOGY | [address] [...] DEPARTMENT OF | [address] | [place] [address] | | | PATHOLOGY | [address] | | | + + + + + | [facility] DEPARTMENT OF | [address] | [place] [address] | | | PATHOLOGY | [address] [...] | + + + + + | [facility] | [address] | [place] [address] | | | PATHOLOGY | [address] | | | + + + + + | [facility] | [address] | [place] [address] | | | PATHOLOGY | [address] [...] | [facility] | [address] [facility] | [place] [address] | | | PATHOLOGY | [address] | | | + + + + + | [facility] | [address] [facility] | [place] [address] | | | PATHOLOGY | [address] [...] by | | | | | | [facility] | | | | | | [facility]. | | | | + + + + + + + + | Specimen | + + | | + + + + + + + | Performing | Address | City/State/Zipcode | Phone Number | | Organization | | | | + + + + + | [facility] | [address] | [place] [address] | | | LABORATORY | | | | + + + + + documented in this encounter Visit Diagnoses Not on filedocumented in this encounter"
--- OUTSIDE RECORDS SUMMARY | ~2019-07-26 | XMS | Encounter Summary ---
Demographics + + + | Address | [address] | | | [place] [address] | + + + | Home Phone [...] [place] | | | | | [address] | | + + + + + Care Team Providers + +------+ + | Care Machine Preservative Filler Name | Role | Phone | [...] Plastic | Diagnoses | Brennan | Valerie Mullnis | | | | Surgery | Intertrigo | MD Gia | MD Tristin | | | | | Procedures | [address] | ER[place]ST[place] | | | | | CONSULT TO | [facility] | [facility] | | | | | [place] | [place], [place] | CHILDREN | | | | | | [address] | [address] [facility] | | | | | | Phone: | DEACON BYRNE | | | | | | [phone] | [place], | | | | | | Fax: | [place] [address] | | | | | | [phone] | Phone: | | | | | | | [phone] | | | | | | | Fax: | | | | | | | [phone] | +--------+--------+ + + + + Reason [...] Dx) | | | | Surgery at [facility] [address] | [place], [place] | | | | | [address] [place] | [address] | | | | | for Health and | [phone] | | | | | [place] [address], | | | | | | 5th Floor [place], | | | | | | [place] [address] | | | | | | [phone] | | | +--------+---------+ + + + [...] with Dr. Vasquez. She has seen a ointment mill tender without any change in her rash. She [...] known rash that was seen by a ointment mill tender, per patient. There was no specific treatab [...]
--- OUTSIDE RECORDS SUMMARY | ~2019-07-26 | XMS | Encounter Summary ---
Demographics + + + | Address | [address] | | | [place] [address] | + + + | Home Phone [...] [place] | | | | | [address] | | + + + + + Care Team Providers + +------+ + | Care Architectural Associate Name | Role | Phone | [...] | | | Surgery at [facility] [address] | [address] [place], [place] | | | | | [address] | [address] | | | | | Mailcode: [facility] | [phone] | | | | | [facility] | | | | | | and Healing, | | | | | | Building 1, 5th | | | | | | Floor [facility] [place] | | | | | | [address] | | | | | | [phone] | | | +--------+---------+ + + + [...]
--- OUTSIDE RECORDS SUMMARY | ~2019-07-26 | XMS | Encounter Summary ---
Demographics + + + | Address | [address] [place] [address] [facility] [address] | | | [place] [address] | + + + | Home Phone [...] [place] | | | | | [address] | | + + + + + Care Team Providers + +------+ + | Care Associate Art Director Name | Role | Phone | [...] Isaiah | | | | | at [facility] | [facility] | | | | | [address] | [place] [address] | | | | | [address] | | | | | | [place], [address] [place] [address] | | | | | | [place], [place] | | | | | | [address] | | | | | | [phone] | | | +--------+ + + + [...] uncontrolled([id number]) | | | | | | ([facility]) Obesity | | | | | [...] view image for the detailed interpretation from [employer] results. | CARDIOLOGY | | | | + + + + + + + + | Performing | Address | City/State/Zipcode | Phone Number | | Organization | | | | + + + + + | [facility] DEPT OF | [address] | [place], [place] | | | CARDIOLOGY | [address] | [address] | | + + + + + | [facility] DEPT OF | [address] | [place] | | | CARDIOLOGY | [facility] | [address] | | + + + + + documented in this encounter Visit Diagnoses Not on filedocumented in this encounter
--- OUTSIDE RECORDS SUMMARY | ~2019-07-26 | XMS | Encounter Summary ---
Demographics + + + | Address | [address] | | | [place] [address] | + + + | Home Phone [...] [place] | | | | | [address] | | + + + + + Care Team Providers + +------+ + | Care Dough Puncher Name | Role | Phone | + +------+ + | Tuan Chna MD | PCP | | + +------+ [...] | | | obstructing | [facility] | [address] | | | | | calculus at | [address] | Ave | | | | | [facility] | [facility] | [place], [place] | | | | | MARYAN. | [address] | [address] | | | | | | [address] | | | | | | | [place] | | | | | | | [place] [address] | | | | | | | Phone: | | | | | | | [phone] | | | | | | | Fax: | | | | | | | [phone] | | +--------+--------+ + + + + [...] Building | | | | | | [place], [place] | | | | | | [address] | | | | | | [phone] | | | +--------+---------+ + + + [...] surgeries scheduled to take place on the east bend at the [facility]: Surgeries scheduled in the [facility] ([address] [place] [address]): registration is located on the 4th floor of [facility] (Day Surgery). Surgeries scheduled in the [facility]: registration is located on the 9th floor. Surgeries scheduled in [facility]: registration is located on the 6th floor. Surgeries scheduled in the [facility]: registration is located i n the [facility] lobby on the first floor. 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 She has been maintained of Plavx since then but stopped it over a week ago. She has no cardiac symptoms especially since w eight loss from 550 to 190 after gastric bypass in 2005. Pannus removed more recently by Dr. Gia Amin at [facility]. She suffers from chronic back pain [...] 1 Years of Education: N/A Occupational History [employer] Social History Main Topics Smoking status: Former [...] + + + | Test performed by: [facility] | [facility] | | Outpatient Lab [address] [place] [address] | DEPARTMENT OF | | | PATHOLOGY | + + + + + + + + | Performing | Address | City/State/Zipcode | Phone Number | | Organization | | | | + + + + + | [facility] DEPARTMENT | [address] | [place] [address] | | | PATHOLOGY | [address] [...] + + + | Test performed by: [facility] | [facility] | | Outpatient Lab [facility] [address] [place], [place] [address] | DEPARTMENT OF | | Sent to Core Lab. | PATHOLOGY | + + + + + + + + | Performing | Address | City/State/Zipcode | Phone Number | | Organization | | | | + + + + + | [facility] DEPARTMENT OF | [address] | [place] [address] | | | PATHOLOGY | [address] | | | + + + + + 12 LEAD ECG (03/11/2011 4:58 PM PST) + + + + + + | Component | Value | Ref Range | Performed | Pathologist | | | | | At | Signature | + + + + + + | VENTRICULAR | 62 | BPM | [facility] DEPT | | | RATE | [...] view image for the detailed interpretation from [employer] results. | CARDIOLOGY | + + + + + + + + | Performing | Address | City/State/Zipcode | Phone Number | | Organization | | | | + + + + + | [facility] DEPT OF | [address] | [place], [place] | | | CARDIOLOGY | [address] | [address] | | + + + + + [...] | | | | | | [facility]) | | | | | | [place] | | | | | | Permanente | | | | | | [address] [facility] | | | | | | [place], [place] | | | | | | [address] | | | | + + + + + + + + | Specimen | + + | Urine - Voided | + + + + + + + | Performing | Address | City/State/Zipcode | Phone Number | | Organization | | | | + + + + + | [facility] | [address] | [place] [address] | | | LAB-MICRO | | | [...] + + | [facility] | [address] [facility] | [place] [address] | | | OF CARE TESTS | | | | + + + + + documented in this encounter Visit Diagnoses + + | Diagnosis | + + | Kidney stone - Primary Calculus of kidney | + + | Other specified pre-operative examination | + + documented in this encounter
--- OUTSIDE RECORDS SUMMARY | ~2019-07-26 | XMS | Encounter Summary ---
Demographics + + + | Address | [address] [facility] [facility] [address] | | | [place] [address] | + + + | Home Phone [...] [place] | | | | | [address] | | + + + + + Care Team Providers + +------+ + | Care Spiral Weaver Name | Role | Phone | [...] | | | | | | | [facility] | | | | | | | [id number] | | | | | | | [facility] | | | | | | | Hospital | | | | | | | [place], [place] | | | | | | | [address] | | | | | | | Phone: | | | | | | | [phone] | | | | | | | Fax: | | | | | | | [phone] | +--------+--------+ + + + + Encounter Details +--------+---------+ + + + | Date | Type | Department | Care Team | Description | +--------+---------+ + + + | 05/09/ | Office | Preoperative | Steven, | Preop Examination | | 2008 | Visit | Medicine Clinic at | [facility] | (Primary Dx); | | | | [facility] 4th Floor [address] | | Long-Term (Current) | | | | [address] | | Use of | | | | Mailcode: CH4S | | Anticoagulants | | | | [facility] | | | | | | and Healing, | | | | | | Building [facility] Floor | | | | | | [place], [place] | | | | | | [address] | | | | | | [phone] | | | +--------+---------+ + + + [...] + + + + | [facility] | [address] | [place] [address] | | | PATHOLOGY | [address] | | | + + + + + | [facility] | [address] | [place] [address] | | | PATHOLOGY | [address] [...] + + + + + | [facility] DEPARTMENT OF | [address] | [place] [address] | | | PATHOLOGY | [address] | | | + + + + + | [facility] DEPART[facility] OF | [address] | [place] [address] | | | PATHOLOGY | [address] [...] Performed At | + + + | [id number] Estimated GFR > 60 mL/min/1.73 sq m if non- | [facility] | | [place] [id number] Estimated GFR > 60 mL/min/1.73 sq m [...] + + + + | [facility] | [address] | [place] [address] | | | PATHOLOGY | [address] | | | + + + + + | [facility] | [address] [place] [address] | [place] [address] | | | PATHOLOGY | [address] [...] + + + + + | [facility] | [facility] | [place] [address] | | | PATHOLOGY | [address] | | | + + + + + | [facility] | [address] | [place] [address] | | | PATHOLOGY | [address] [...]
--- OUTSIDE RECORDS SUMMARY | ~2019-07-26 | XMS | Encounter Summary ---
Demographics + + + | Address | BAD ADDRESS | | | [place] [address] | + + + | Home Phone [...] | Author | [facility] | | | and [place] | + + + | Organization | [facility] | [...] | | | | | [place] [address] | | + + + + + | Najma Krishnamurthy | ECON | Unknown | | + + + + + | Hector Mack | ECON | [address] | | | | | [place] | | | | | [address] | | + + + + + | Najma Sanches | ECON | Unknown | | + + + + + Care Team Providers + +------+ + | Care Journeyman Welder Name | Role | Phone | + +------+ + PCP | Unavailable | + +------+ + Encounter Details +--------+ + + + + | Date | Type | Department | Care Team | Description | +--------+ + + + + | 05/17/ | Hospital | [facility] | | | | 1993 | Encounter | MED CTR EMERGENCY | | | | | | CENTER [address] | | | | | | [place] | | | | | | [address] | | | | | | [phone] | | | +--------+ + + + [...]
--- OUTSIDE RECORDS SUMMARY | ~2019-07-26 | XMS | Encounter Summary ---
Demographics + + + | Address | BAD ADDRESS | | | [place] [address] | + + + | Home Phone [...] Author | [facility] | | | and [place] | + + + | Organization | [facility] | | | and [place] | + + + | Address | Unknown | + + + | Phone | Unavailable | + + + Support + + + + + | Name | Relationship | Address | Phone | + + + + + | Hector Mack | ECON | [address] | | | | | [place] [address] | | + + + + + | Najma Krishnamurthy | ECON | Unknown | | + + + + + | Hector Mack | ECON | [address] | | | | | [place] | | | | | [address] | | + + + + + | Najma Sanches | ECON | Unknown | | + + + + + Care Team Providers + +------+ + | Care Clinical Phlebotomist Name | Role | Phone | + +------+ + PCP | Unavailable | + +------+ + Encounter Details +--------+ + + + + | Date | Type | Department | Care Team | Description | +--------+ + + + + | 05/04/ | Hospital | [facility] | | | | 1996 - | Encounter | MED CTR OP REHAB | | | | | | [address] | | | | 08/19/ | | [place] [address] | | | | 1996 | | [phone] | | | +--------+ + + + [...]
--- OUTSIDE RECORDS SUMMARY | ~2019-07-26 | XMS | Encounter Summary ---
Demographics + + + | Address | BAD ADDRESS | | | [place] [address] | + + + | Home Phone [...] + | Author | [facility] | | | and [place] | + + + | Organization | [facility] | | | and [...] | | | | | [place] [address] | | + + + + + | Najma Krishnamurthy | ECON | Unknown | | + + + + + | Hector Mack | ECON | [address] | | | | | [place] | | | | | [address] | | + + + + + | Najma Sanches | ECON | Unknown | | + + + + + Care Team Providers + +------+ + | Care Housekeeping Assistant Name | Role | Phone | + +------+ + PCP | Unavailable | + +------+ + Encounter Details +--------+ + + + + | Date | Type | Department | Care Team | Description | +--------+ + + + + | 07/15/ | Hospital | [facility] | Rina Diaz MD | | | 2003 - | Encounter | [facility] | [address] | | | | | INTENSIVE CARE UNIT | [place] [address] | | | 07/16/ | | [address] | [phone] | | | 2003 | | [place], [place] | | | | | | [address] | | | | | | [phone] | | | +--------+ + + + [...]
--- OUTSIDE RECORDS SUMMARY | ~2019-07-26 | XMS | Encounter Summary ---
Demographics + + + | Address | [address] | | | [place] [address] | + + + | Home Phone [...] [place] | | | | | [address] | | + + + + + Care Team Providers + +------+ + | Care Director Translation Name | Role | Phone | + [...] 2007 | Activity | [address] | [address] | | | | | Eugenio Mailcode: [id number] | [place], [place] | | | | | [place], [place] | [address] | | | | | [address] | [phone] | | | | | [phone] | | | +--------+ + + + [...]
--- OUTSIDE RECORDS SUMMARY | ~2019-07-26 | XMS | Encounter Summary ---
Demographics + + + | Address | BAD ADDRESS | | | [place] [address] | + + + | Home Phone [...] Author | [facility] | | | and [place] | + + + | Organization | [facility] | | [...] | | | | | [place] [address] | | + + + + + | Najma Krishnamurthy | ECON | Unknown | | + + + + + | Hector Mack | ECON | [address] | | | | | [place] | | | | | [address] | | + + + + + | Najma Sanches | ECON | Unknown | | + + + + + Care Team Providers + +------+ + | Care Buckler And Lacer Name | Role | Phone | + +------+ + PCP | Unavailable | + +------+ + Encounter Details +--------+ + + + + | Date | Type | Department | Care Team | Description | +--------+ + + + + | 10/18/ | Hospital | [facility] | | | | 1999 | Encounter | MED CTR EMERGENCY | | | | | | CENTER [address] | | | | | | [place] | | | | | | [address] | | | | | | [phone] | | | +--------+ + + + [...]
--- OUTSIDE RECORDS SUMMARY | ~2019-07-26 | XMS | Encounter Summary ---
Demographics + + + | Address | [address] | | | [place] [address] | + + + | Home Phone [...] [place] | | | | | [address] | | + + + + + Care Team Providers + +------+ + | Care Elementary School Principal Name | Role | Phone | + [...] Procedure Note | + + | Interface, Business Segment Manager In - 02/05/2006 12:00 AM PST | | [id number] | | [id number] ANTONIETTAMACK GERMAINE [id number] | | | | Date: 02/05/2006 | | | | Attending Surgeon: Papi Johnson M.D. | | | | Signs Cleaner(s): Darrel Dunn M.D. | | | | [...] | | DS / HS | | [id number] / [id number] / [id number] / [id number] | | | | | | | | | | | | Reviewed or Edited By Darrel Dunn MD on 05-29-2006 | | Electronically signed by Papi Johnson 05-29-2006 11:17:53 AM | | | | | + + + + | Transcriptions | + + | Interface, Business Segment Manager In - 02/20/2006 2:34 AM PST | | [id number] | | [id number] [place]ON [id number] | | | | Date: 02/05/2006 | | | | Attending Surgeon: Herberth Ayala M.D. | | | | Signs Cleaner(s): Darrel Dunn M.D. | | | | [...] | | | RWO / | | [id number] / [id number] / [id number] / [id number] | | | | | | | | | | | | Electronically signed by Herberth Brambila 02-19-2006 11:24:19 AM | + + documented in this encounter Visit Diagnoses Not on filedocumented in this encounter"
--- OUTSIDE RECORDS SUMMARY | ~2019-07-26 | XMS | Encounter Summary ---
Demographics + + + | Address | BAD ADDRESS | | | [place] [address] | + + + | Home Phone [...] | [facility] | | | and [place] | + + + | Organization | [facility] [...] | | | | | [place] [address] | | + + + + + | Najma Krishnamurthy | ECON | Unknown | | + + + + + | Hector Mack | ECON | [address] | | | | | [place] | | | | | [address] | | + + + + + | Najma Sanches | ECON | Unknown | | + + + + + Care Team Providers + +------+ + | Care It Senior Analyst Name | Role | Phone | + +------+ + PCP | Unavailable | + +------+ + Encounter Details +--------+ + + + + | Date | Type | Department | Care Team | Description | +--------+ + + + + | 02/18/ | Hospital | [facility] | | | | 2005 | Encounter | MED CTR EMERGENCY | | | | | | CENTER [address] | | | | | | [place], [place] | | | | | | [address] | | | | | | [phone] | | | +--------+ + + + [...]
--- OUTSIDE RECORDS SUMMARY | ~2019-07-26 | XMS | Encounter Summary ---
Demographics + + + | Address | BAD ADDRESS | | | [place] [address] | + + + | Home Phone [...] | [facility] | | | and [place] | + + + | Organization | [facility] | | [...] | | | | | [place] [address] | | + + + + + | Najma Krishnamurthy | ECON | Unknown | | + + + + + | Hector Mack | ECON | [address] | | | | | [place] | | | | | [address] | | + + + + + | Najma Sanches | ECON | Unknown | | + + + + + Care Team Providers + +------+ + | Care Parking Regulation Enforcement Officer Name | Role | Phone | [...] [address] | | | | | [address] | [employer] | | | | | [employer] [place] | [place] [address] | | | | | [address] | [phone] | | | | | [phone] | | | +--------+ + + + [...]
--- OUTSIDE RECORDS SUMMARY | ~2019-07-26 | XMS | Clinical Summary ---
Demographics + + + | Address | [address] | | | [place] [address] | + + + | Home Phone [...] | Author | [facility] (Historical as of | | | 11-14-18) | + + + | Organization | [facility] (Historical as of | | | 11-14-18) [...] [place] | | | | | [address] | | + + + + + | Najma Sanches | ECON | Unknown | | + + + + + Care Team Providers + +------+ + | Care Human Resources Executive Name | Role | Phone | [...] | 04/27/2014 | + + + | [place] (myocardial infarction) | 09/05/2012 | + + [...] +------+-------+ + | MEDICARE | MEDICA | [id number] | | | [address] | | | RE | | | | [place] [address] | | | IP-OP | | | | | + +--------+ +------+-------+ + | MEDICAID | E[place]ER | [id number] | | | [address] | | | N | | | | [place] | | | [place] | | | | [address] | | | ANALYSIS LEAD | | | | | + +--------+ [...] | 1946 | [phone] [place] [address] | | | demetrius | | | [phone] | | + +--------+ +--------+ + +
--- OUTSIDE RECORDS SUMMARY | ~2019-07-26 | XMS | Encounter Summary ---
Demographics + + + | Address | [address] | | | [place] [address] | + + + | Home Phone [...] [place] | | | | | [address] | | + + + + + Care Team Providers + +------+ + | Care Railroad Supervisor Of Engines Name | Role | Phone | + [...] | | Loop Mailcode: | [address] [place], | | | | | [address] Phys[facility] | [place] [address] | | | | | [address] | [phone] | | | | | [place], [place] | | | | | | [address] | | | | | | [phone] | | | +--------+---------+ + + + [...] cardiac problems. She smoked, has about a 42-dndm-rcyi smoking history but has not smoked in [...]
--- OUTSIDE RECORDS SUMMARY | ~2019-07-26 | XMS | Encounter Summary ---
Demographics + + + | Address | BAD ADDRESS | | | [place] [address] | + + + | Home Phone [...] Author | [facility] | | | and [place] | + + + | Organization | [facility] [...] | | | | | [place] [address] | | + + + + + | Najma Krishnamurthy | ECON | Unknown | | + + + + + | Hector Mack | ECON | [address] | | | | | [place] | | | | | [address] | | + + + + + | Najma Sanches | ECON | Unknown | | + + + + + Care Team Providers + +------+ + | Care City Alderman Name | Role | Phone | + +------+ + PCP | Unavailable | + +------+ + Encounter Details +--------+ + + + + | Date | Type | Department | Care Team | Description | +--------+ + + + + | 06/01/ | Hospital | [facility] | | | | 2005 | Encounter | MED CTR XRAY [address] | | | | | [address] | | | | | | [place] [address] | | | | | | [phone] | | | +--------+ + + + [...]
--- OUTSIDE RECORDS SUMMARY | ~2019-07-26 | XMS | Encounter Summary ---
Demographics + + + | Address | [address] [place] [address] | | | [place] [address] | + + + | Home Phone [...] [place] | | | | | [address] | | + + + + + Care Team Providers + +------+ + | Care Leaflet Or Newspaper Deliverer Name | Role | Phone | + [...] | | | | abdominal | [facility] [place] | Mailcode: | | | | | cavity | [address] | [facility] | | | | | without | | for Health | | | | | mention of | | and Healing, | | | | | obstruction | | Building 1, | | | | | or gangrene | | 5th Floor | | | | | | | [place], [place] | | | | | Panniculitis | | [address] | | | | | Procedures | | Phone: | | | | | REQUEST TO | | [phone] | | | | | SURGERY | | | | | | | ROLLER LEVELER | | | +--------+--------+ + + + [...] | | | | abdominal | [place], [place] | Hospital, | | | | | cavity | [address] | 10th Floor | | | | | without | | [place], [place] | | | | | mention of | | [address] | | | | | obstruction | | Phone: | | | | | or gangrene | | [phone] | | | | | Procedures | | Fax: | | | | | CT ABDOMEN | | [phone] | | | | | WWO CONTRAST [...] Panniculitis | | | | Surgery at [facility] [address] | | | | | | [facility] | | | | | | for Health and | | | | | | Healing Building 1, | | | | | | 5th Floor [place], | | | | | | [place] [address] | | | | | | [phone] | | | +--------+---------+ + + + [...]
--- OUTSIDE RECORDS SUMMARY | ~2019-07-26 | XMS | Encounter Summary ---
Demographics + + + | Address | [address] | | | [place] [address] | + + + | Home Phone [...] [place] | | | | | [address] | | + + + + + Care Team Providers + +------+ + | Care Human Resources Assistant Manager Name | Role | Phone | [...] | | | | | | [place] [address] | | | +--------+ + + + [...] | + + | 02/06/2006 11:10 AM [facility] Anesthesia PostOp Report | | | | Patient: GERMAINE CARIAS [facility] Rec: [id number] Sex F Bdate: 1945 | | Date/Time Data | | Entered Into [facility] | | Anesth PostOp | | Surgery Date [id number] 02/06/06 11:10 | | Anesthesiologist OLEG ASCENCIO 02/06/06 11:10 | | Resident Anesthesiolog JULIEN FRYE 02/06/06 11:10 | | | + + documented in this encounter Visit Diagnoses Not on filedocumented in this encounter"
--- OUTSIDE RECORDS SUMMARY | ~2019-07-26 | XMS | Encounter Summary ---
Demographics + + + | Address | BAD ADDRESS | | | [place] [address] | + + + | Home Phone [...] Author | [facility] | | | and [place] | + + + | Organization | [facility] | [...] | | | | | [place] [address] | | + + + + + | Najma Krishnamurthy | ECON | Unknown | | + + + + + | Hector Mack | ECON | [address] | | | | | [place] | | | | | [address] | | + + + + + | Najma Sanches | ECON | Unknown | | + + + + + Care Team Providers + +------+ + | Care Door Hanger Name | Role | Phone | + +------+ + PCP | Unavailable | + +------+ + Encounter Details +--------+ + + + + | Date | Type | Department | Care Team | Description | +--------+ + + + + | 12/26/ | Hospital | [facility] | | | | 1991 | Encounter | MED CTR LABORATORY | | | | | | [address] | | | | | | [place] | | | | | | [address] | | | | | | [phone] | | | +--------+ + + + [...]
--- OUTSIDE RECORDS SUMMARY | ~2019-07-26 | XMS | Encounter Summary ---
Demographics + + + | Address | [address] | | | [place] [address] | + + + | Home Phone [...] [place] | | | | | [address] | | + + + + + Care Team Providers + +------+ + | Care Business Center Attendant Name | Role | Phone | [...] | | | | | | | [place], [place] | | | | | | | [address] | | | | | | | Phone: | | | | | | | [phone] | | | | | | | Fax: | | | | | | | [phone] | +--------+--------+ + + + + Encounter Details +--------+ + + + + | Date | Type | Department | Care Team | Description | +--------+ + + + + | 05/10/ | Hospital | [facility] [address] | Aysha Blackburn | | | 2008 - | Encounter | [place] [address] Andre Crow MD | | | | | [address]/KPV11 Joey | | | | 05/11/ | | An [place], | | | | 2008 | | [place] [address] | | | +--------+ + + + [...] from PACU to the wards in stable [facility]. On POD#1, the patient was ambulating, [...] Supplies, Dressings, LAB follow-up) Weigh daily: No MRACELLE drain care per nursing, please record drain outputs and have available at first clinic a ppointment Call: Plastic surgery resident refinery operator alkylation at If you have any of the [...] Aysha Blackburn MD, 1 week, please call [phone] for appointment Follow Up Tests: (Tests at [facility] must be entered into Epic) None [...] Discharged Via: Wheelchair Mode of Transportation: Other: [employer] Accompanied by: Staff Transport Company Name: (when applicable) [employer] Phone #: Discharge Nurse: PASQUALE MEYERS RN [...] week for drain removal Lizz Brittany MS4 [address] [place] [address] Kassandra Herman - 05/01 12:00 AM Emily-Germaine brownlee [id number] [facility] REC NUMBER: [id number] NAME : Germaine Heard DATE : 1945 Admit Date: 05/10/2008 Discharge Date: 05/11/2008 PHYSICIAN'S REQUEST FOR HOME HEALTH SERVICES Relevant History: Location to receive services if other than home: Allergies: Height: Weight: Ordering Physician: [address] [place] [address] Physician to follow for ongoing home health orders: PCP Name: PCP Phone: Discharge Need(s): 1. Transportation Discharge Vendor: Medicaid - [place] Discharge Suggested First Visit/Delivery Date: Discharge Service/Equipment: Federal Law Clerk: Oralia Wang documented in this encounter Plan [...] + + + + | PRODUCT | [id number] | | [facility] | | | UNIT [...] + | [facility] | [address] | [place] [address] | | | PATHOLOGY | [address] | | | + + + + + | [facility] | [address] | [place] [address] | | | PATHOLOGY | [address] [...] + + + + | PRODUCT | [id number] | | [facility] | | | UNIT [...] [facility] DEPARTMENT OF | [address] | [place] [address] | | | PATHOLOGY | [address] | | | + + + + + | [facility] DEPARTMENT OF | [address] | [place] [address] | | | PATHOLOGY | [address] | | | + + + + + OPERATION RECORD (05/10/2008 12:00 AM PST) + + + | Narrative | Performed At | + + + | [id number] | | | [id number] | | | [id number] [place] [id number] | | | Date: 05/10/2008 Attending Surgeon: | | | Aysha Blackburn MD Early Childhood Worker(s): | | | Lang Pisano M.D. Preoperative [...] hemostasis was ensured. We then placed two 19-Palestinian Ruel | | | drains in the [...] | | | MD LORIE Arce / [id number] / [id number] / [id number] / D: | | | 05/12/2008 | | + + + + + | Procedure Note | + + | Aysha Blackburn MD - 05/10/2008 12:00 AM [facility] [id number] | | [id number] [place]TH[place] RAE | | [id number] Date: 05/10/2008 Attending Surgeon: | | Aysha Blackburn MD Early Childhood Worker(s): Lang Pisano M.D. | | Preoperative Diagnosis(es):Panniculitis. [...] ensured. We then | | placed two 19-Palestinian Ruel drains in the subcutaneous plane. The [...] Crow | | MD LORIE Blackburn / [id number] / [id number] / [id number] / T: 05/12/2008 | | | | [...] w as ensured. We then placed two 19-Palestinian Ruel drains in the subcutaneous plane. The [...] | | | |LORIE / PASCUAL | |[id number] / [id number] / [id number] / | | | | | | [...] + +---------+ +------+--------+---+ | morphine 5 mg/mL PELLET MACHINE OPERATOR infusion | New Bag | [...]
--- OUTSIDE RECORDS SUMMARY | ~2019-07-26 | XMS | Encounter Summary ---
Demographics + + + | Address | BAD ADDRESS | | | [place] [address] | + + + | Home Phone [...] + | Author | [facility] | | | and [place] | + + + | Organization | [facility] | | | and [place] | + + + | Address | Unknown | + + + | Phone | Unavailable | + + + Support + + + + + | Name | Relationship | Address | Phone | + + + + + | Hector Mack | ECON | [address] | | | | | [place] [address] | | + + + + + | Najma Krishnamurthy | ECON | Unknown | | + + + + + | Hector Mack | ECON | [address] | | | | | [place] | | | | | [address] | | + + + + + | Najma Sanchse | ECON | Unknown | | + + + + + Care Team Providers + +------+ + | Care Picture Enlarger Name | Role | Phone | + +------+ + PCP | Unavailable | + +------+ + Encounter Details +--------+ + + + + | Date | Type | Department | Care Team | Description | +--------+ + + + + | 01/24/ | Hospital | [facility] | | | | 1997 - | Encounter | MED CTR MED ONC | | | | | | [address] | | | | 01/27/ | | [place] [address] | | | | 1997 | | [phone] | | | +--------+ + + + [...]
--- OUTSIDE RECORDS SUMMARY | ~2019-07-26 | XMS | Encounter Summary ---
Demographics + + + | Address | BAD ADDRESS | | | [place] [address] | + + + | Home Phone [...] Author | [facility] | | | and [place] | + + + | Organization | [facility] | | | and [...] | | | | | [place] [address] | | + + + + + | Najma Krishnamurthy | ECON | Unknown | | + + + + + | Hector Mack | ECON | [address] | | | | | [place] | | | | | [address] | | + + + + + | Najma Sanches | ECON | Unknown | | + + + + + Care Team Providers + +------+ + | Care Saddle Stitching Machine Operator Name | Role | Phone | + +------+ + PCP | Unavailable | + +------+ + Encounter Details +--------+ + + + + | Date | Type | Department | Care Team | Description | +--------+ + + + + | 05/18/ | Hospital | [facility] | | | | 2000 | Encounter | MED CTR EMERGENCY | | | | | | CENTER [address] | | | | | | [place] | | | | | | [address] | | | | | | [phone] | | | +--------+ + + + [...]
--- OUTSIDE RECORDS SUMMARY | ~2019-07-26 | XMS | Encounter Summary ---
Demographics + + + | Address | [address] | | | [place] [address] | + + + | Home Phone [...] [place] | | | | | [address] | | + + + + + Care Team Providers + +------+ + | Care Food Services Director Name | Role | Phone | [...] | Dyslipidemia; | | | | Mailcode: [id number] | | Dysmetabolic | | | | [facility] | | Syndrome X; Sleep | | | | [address], | | Apnea; Gout; DM Circ | | | | [place] [address] | | Dis Type II, | | | | [phone] | | Uncontrolled (HCC) | +--------+ + [...] + + + + | [facility] | [address] | [place] [address] | | | PATHOLOGY | [address] | | | + + + + + | [facility] | [address] | [place] [address] | | | PATHOLOGY | [address] [...]
--- OUTSIDE RECORDS SUMMARY | ~2019-07-26 | XMS | Encounter Summary ---
Demographics + + + | Address | BAD ADDRESS | | | [place] [address] | + + + | Home Phone [...] Author | [facility] | | | and [place]ana | + + + | Organization | [facility] [...] | | | | | [place] [address] | | + + + + + | Najma Krishnamurthy | ECON | Unknown | | + + + + + | Hector Mack | ECON | [address] | | | | | [place] | | | | | [address] | | + + + + + | Najma Sanches | ECON | Unknown | | + + + + + Care Team Providers + +------+ + | Care Direct Care Worker Name | Role | Phone | [...] 2018 | | HOSPITAL EMERGENCY | C, EXTERIOR INTERIOR SPECIALIST [address] | demonstrated | | | | CENTER [address] | [address] [place] | (Primary Dx) | | | | [place] | [address] | | | | | [address] | | | | | | [phone] | | | +--------+ + + + [...] D?MRN: | | | | | | [id number] | | | [id number] | | | ecurit | | | [...] | | | St. | | | [place] | | | y | | | [...] | | | [phone] | | | [phone] | | | .These | | | [...] | | | St. | | | [place] | | | y H. | | [...] | | | St. | | | [place] | | | y H. | | [...] | | | St. | | | [place] | | | y H. | | [...] | | | St. | | | [place] | | | y H. | | [...] | | | St. | | | [place] | | | y | | | [...] + + | [facility] | [address] | [place] | [phone] | | HOSPITAL LABORATORY | | [address] | | + + + + + [...] - 1.030 | [facility] | | | [place], | | | [place] | | | [...] + + | [facility] | [address] | [place] | [phone] | | HOSPITAL LABORATORY | | [address] | | + + + + + [...] + + | [facility] | [address] | [place] | [phone] | | HOSPITAL LAB[facility]ATORY | | [address] | | + + + + + [...] | mL/min/1.73m2 | [facility] | | | UKRAINIAN | RATE,ESTIMATED | | HOSPITAL | | | | mL/min/1.81u0Sxhc than | | LABORATORY | | | [...] + + | [facility] | [address] | [place] | [phone] | | HOSPITAL LABORATORY | | [address] | | + + + + + [...] + + | [facility] | [address] | [place] | [phone] | | HOSPITAL LABORATORY | | [address] | | + + + + + documented in this encounter Visit Diagnoses + + | Diagnosis | + + | Feared condition not demonstrated - Primary Person with feared complaint in whom no | | diagnosis was made | + + documented in this encounter
--- OUTSIDE RECORDS SUMMARY | ~2019-07-26 | XMS | Encounter Summary ---
Demographics + + + | Address | BAD ADDRESS | | | [place] [address] | + + + | Home Phone [...] + + | Author | [facility] | | | and [place] | + + + | Organization | [facility] | | [...] | | | | | [place] [address] | | + + + + + | Najma Krishnamurthy | ECON | Unknown | | + + + + + | Hector Mack | ECON | [address] | | | | | [place] | | | | | [address] | | + + + + + | Najma Sanches | ECON | Unknown | | + + + + + Care Team Providers + +------+ + | Care Chief Deputy Clerk/Bailiff Name | Role | Phone | + +------+ + PCP | Unavailable | + +------+ + Encounter Details +--------+ + + + + | Date | Type | Department | Care Team | Description | +--------+ + + + + | 09/26/ | Hospital | [facility] | | | | 1994 - | Encounter | MED CTR MED ONC | | | | | | [address] [place] | | | | 10/04/ | | [place] [address] | | | | 1994 | | [phone] | | | +--------+ + + + [...]
--- OUTSIDE RECORDS SUMMARY | ~2019-07-26 | XMS | Encounter Summary ---
Demographics + + + | Address | [address] | | | [place] [address] | + + + | Home Phone [...] [place] | | | | | [address] | | + + + + + Care Team Providers + +------+ + | Care Shop Tailor Name | Role | Phone | + [...] | | | | | Surgery at [facility] [address] [place], [place] | | | | | [address] | [address] | | | | | Mailcode: [facility] | [phone] | | | | | [facility] | | | | | | and Healing, | | | | | | Building 1, 5th | | | | | | Floor [facility] [place] | | | | | | [address] | | | | | | [phone] | | | +--------+---------+ + + + [...]
--- OUTSIDE RECORDS SUMMARY | ~2019-07-26 | XMS | Encounter Summary ---
Demographics + + + | Address | BAD ADDRESS | | | [place] [address] | + + + | Home Phone [...] | Author | [facility] | | | and [place] | + + + | Organization | [facility] | | [...] | | | | | [place] [address] | | + + + + + | Najma Krishnamurthy | ECON | Unknown | | + + + + + | Hector Mack | ECON | [address] | | | | | [place] | | | | | [address] | | + + + + + | Najma Sanches | ECON | Unknown | | + + + + + Care Team Providers + +------+ + | Care Mental Retardation Aide Name | Role | Phone | + +------+ + PCP | Unavailable | + +------+ + Encounter Details +--------+ + + + + | Date | Type | Department | Care Team | Description | +--------+ + + + + | 02/15/ | Hospital | [facility] | | | | 1995 - | Encounter | MED CTR ICU [address] | | | | | | [place], | | | | 02/18/ | | [place] [address] | | | | 1995 | | [phone] | | | +--------+ + + + [...]
--- OUTSIDE RECORDS SUMMARY | ~2019-07-26 | XMS | Encounter Summary ---
Demographics + + + | Address | BAD ADDRESS | | | [place] [address] | + + + | Home Phone [...] | Author | [facility] | | | and [place] | + + + | Organization | [facility] [...] | | | | | [place] [address] | | + + + + + | Najma Krishnamurthy | ECON | Unknown | | + + + + + | Hector Mack | ECON | [address] | | | | | [place] | | | | | [address] | | + + + + + | Najma Sanches | ECON | Unknown | | + + + + + Care Team Providers + +------+ + | Care It Security Consulting Director Name | Role | Phone | + +------+ + PCP | Unavailable | + +------+ + Encounter Details +--------+ + + + + | Date | Type | Department | Care Team | Description | +--------+ + + + + | 08/06/ | Hospital | [facility] | Tuan Chan, | LUMBOSACRAL NEURITIS | | 2004 | Encounter | CONVERSION DEP [address] | MD 2010 | [address] | | | | [address] | [facility], [place] | | | | | [place], [place] | [address] | | | | | [address] | [phone] | | | | | [phone] | | | +--------+ + + + [...]
--- OUTSIDE RECORDS SUMMARY | ~2019-07-26 | XMS | Encounter Summary ---
Demographics + + + | Address | [address] | | | [place] [address] | + + + | Home Phone [...] [place] | | | | | [address] | | + + + + + Care Team Providers + +------+ + | Care Dry Janitor Name | Role | Phone | + [...] Dx); | | | | Surgery at [facility] [address] | | Intertrigo; CAD | | | | [address] | | (Coronary Artery | | | | Mailcode: [facility] | | Disease); DM Circ | | | | [facility] | | Dis Type II, | | | | and Healing, | | Uncontrolled ([facility]) | | | | Building 1, | | | | | | Floor [place], [place] | | | | | | [address] | | | | | | [phone] | | | +--------+---------+ + + + [...] surgeries scheduled to take place on the calhoun at the [facility]: Surgeries scheduled in the [facility] ( North): registration is located on the 4th floor of [facility] (Day Surgery). Surgeries scheduled in the [facility]: registration is located on the 9th floor. Surgeries scheduled in [facility]: registration is located on the 6th floor. Surgeries scheduled in the [facility]: registration is located i n the [facility] on the first floor. For surgeries scheduled to take place at the [facility]: registration is l ocated [...] Accession | | | | | | #:[id number] CC | | | | | | [...] | | | | | at [facility] and | | | | | | Science | | | | | | [place].ASSESSMENT: | | | | | | Negative [...] | + + + + + | [facility] | [address] [place] [address] | [place] [address] | | | PATHOLOGY | [address] | | | + + + + + | [facility] | [address] [place] [address] [address] | [place] [address] | | | PATHOLOGY | [address] [...] [facility] DEPARTMENT | [address] | [place] [address] | | | PATHOLOGY | [address] | | | + + + + + | [facility] | [address] | [place] [address] | | | PATHOLOGY | [address] [...] | + + + + + | [facility] | [address] [facility] [address] | [place] [address] | | | PATHOLOGY | [address] | | | + + + + + | [facility] | [address] [facility] [address] | [place] [address] | | | PATHOLOGY | [address] [...] Performed At | + + + | [id number] Estimated GFR > 60 mL/min/1.73 sq m if non- | [facility] | | [place] [id number] Estimated GFR > 60 mL/min/1.73 sq m if | DEPARTMENT OF | | [place] GFR is estimated using the MDRD equation [...] + + | Performing | Address | City/[facility]/Zipcode | Phone Number | | Organization | | | | + + + + + | [facility] DEPARTMENT | [address] [place] [address] | [place] [address] | | | PATHOLOGY | [address] | | | + + + + + | [facility] | [address] [facility] [address] | [place] [address] | | | PATHOLOGY | [address] [...] + + | [facility] DEPARTMENT OF | [address] | [place] [address] | | | PATHOLOGY | [address] | | | + + + + + | [facility] | [address] | [place] [address] | | | PATHOLOGY | [address] | | | + + + + + documented in this encounter Visit Diagnoses + + | Diagnosis | + + | Panniculitis - Primary Panniculitis, unspecified site | + + | Intertrigo Other specified erythematous condition | + + | CAD (coronary artery disease) Coronary atherosclerosis of unspecified type of vessel, | | nightmute or graft | + + | Type II or unspecified type diabetes mellitus with peripheral circulatory disorders, | | uncontrolled(250.72) Type II or unspecified type diabetes mellitus with peripheral | | circulatory disorders, uncontrolled | + + documented in this encounter
--- OUTSIDE RECORDS SUMMARY | ~2019-07-26 | XMS | Encounter Summary ---
Demographics + + + | Address | BAD ADDRESS | | | [place] [address] | + + + | Home Phone [...] + | Author | [facility] | | | and [place]ana | + + + | Organization | [facility] | [...] | | | | | [place] [address] | | + + + + + | Najma Krishnamurthy | ECON | Unknown | | + + + + + | Hector Mack | ECON | [address] | | | | | [place] | | | | | [address] | | + + + + + | Najma Sanches | ECON | Unknown | | + + + + + Care Team Providers + +------+ + | Care Full Service Supervisor Name | Role | Phone | + +------+ + PCP | Unavailable | + +------+ + Encounter Details +--------+ + + + + | Date | Type | Department | Care Team | Description | +--------+ + + + + | 07/26/ | Hospital | [facility] | | | | 1996 | Encounter | MED CTR EMERGENCY | | | | | | CENTER [address] | | | | | | [place] | | | | | | [address] | | | | | | [phone] | | | +--------+ + + + [...]
--- OUTSIDE RECORDS SUMMARY | ~2019-07-26 | XMS | Encounter Summary ---
Demographics + + + | Address | [address] | | | [place] [address] | + + + | Home Phone [...] [place] | | | | | [address] | | + + + + + Care Team Providers + +------+ + | Care Inspection And Testing Supervisor Name | Role | Phone [...] (Primary Dx) | | 2006 | | [place] [address] MD | | | | | [place] Mailcode: CH4S | | | | | | [facility] | | | | | | and Healing, | | | | | | Building 1, 6th | | | | | | Floor [place], [place] | | | | | | [address] | | | | | | [phone] | | | +--------+ + + + [...] Performed At | + + + | [id number] Estimated GFR = 60 mL/min/1.73 sq m if non- | [facility] | | [id number] Estimated GFR > 60 mL/min/1.73 sq m [...] + + | Performing | Address | City/State/Unm Hospitalcode | Phone Number | | Organization | | | | + + + + + | [facility] | [address] | [place] [address] | | | PATHOLOGY | [address] | | | + + + + + | [facility] DEPARTMENT OF | [address] | [place] [address] | | | PATHOLOGY | [address] [...] DEPARTMENT OF | [address] | [place] [address] | | | PATHOLOGY | [address] | | | + + + + + | [facility] | [address] | [place] [address] | | | PATHOLOGY | [address] | | | + + + + + documented in this encounter Visit Diagnoses + + | Diagnosis | + + | Obesity - Primary Obesity, unspecified | + + documented in this encounter"
--- OUTSIDE RECORDS SUMMARY | ~2019-07-26 | XMS | Encounter Summary ---
Demographics + + + | Address | [address] | | | [place] [address] | + + + | Home Phone [...] [place] | | | | | [address] | | + + + + + Care Team Providers + +------+ + | Care Supervisor Refractory Products Name | Role | Phone | + +------+ + | Tuan Chan MD | PCP | | + +------+ + Encounter Details +--------+ + + + + | Date | Type | Department | Care Team | Description | +--------+ + + + + | 08/05/ | Results | Dermatology | Khoa Manuel, | | | 2008 | Only | Medical at [facility] [address] | ,PhD Gloria | | | | | [address] [employer] | Allergy Asthma | | | | | for Health and | Dermatology [address] | | | | | [place] [address], | [facility] | | | | | 16th Floor | [place] [address] | | | | | [place], [place] | [phone] | | | | | [address] | | | | | | [phone] | | | +--------+ + + + [...] | + +--------+ + + + | DERMATOPATHOLOGY([facility] Routin | 08/05/2008 | | Results for this | | [facility]) | e | | | procedure are in the | | | | | | results section. | + +--------+ + + + documented in this encounter Results DERMATOPATHOLOGY(WET [facility]) (08/05/2008) + + + + + + | Component | Value | Ref Range | Performed | Pathologist | | | | | At | Signature | + + + + + + | DERMATOPATH | SOURCE OF SPECIMEN:A | | | | | OLOGY(WET | FIRST TISSUE LEVEL IV | | | | | MNT) | [id number] | | | | | | DESCRIPTION:Punch [...] [facility] | [address] | [place] [address] | | | DERMATOPATHOLOGY | [address] | | | + + + + + documented in this encounter Visit Diagnoses Not on filedocumented in this encounter"
--- OUTSIDE RECORDS SUMMARY | ~2019-07-26 | XMS | Encounter Summary ---
Demographics + + + | Address | BAD ADDRESS | | | [place] [address] | + + + | Home Phone [...] | Author | [facility] | | | and [place] | + + + | Organization | [facility] | | [...] | | | | | [place] [address] | | + + + + + | Najma Krishnamurthy | ECON | Unknown | | + + + + + | Hector Mack | ECON | [address] | | | | | [place] | | | | | [address] | | + + + + + | Najma Sanches | ECON | Unknown | | + + + + + Care Team Providers + +------+ + | Care Field Instructor Name | Role | Phone | + +------+ + PCP | Unavailable | + +------+ + Encounter Details +--------+ + + + + | Date | Type | Department | Care Team | Description | +--------+ + + + + | 01/06/ | Hospital | [facility] | | | | 1991 | Encounter | MED CTR XRAY [address] | | | | | | [address] | | | | | | [place] [address] | | | | | | [phone] | | | +--------+ + + + [...]
--- OUTSIDE RECORDS SUMMARY | ~2019-07-26 | XMS | Encounter Summary ---
Demographics + + + | Address | [address] | | | [place] [address] | + + + | Home Phone [...] [place] | | | | | [address] | | + + + + + Care Team Providers + +------+ + | Care Ignition Expert Name | Role | Phone | [...] | Activity | [address] | [address] | | | | | [address] Mailcode: [id number] | [place], [place] | | | | | [place], [place] | [address] | | | | | [address] | [phone] | | | | | [phone] | | | +--------+ + + + [...]
--- OUTSIDE RECORDS SUMMARY | ~2019-07-26 | XMS | Encounter Summary ---
Demographics + + + | Address | BAD ADDRESS | | | [place] [address] | + + + | Home Phone | | + + + | Preferred Language | Unknown | + + + | Marital Status | | + + + | Voodoo Affiliation | 1077 | + + + | Race | Unknown | + + + | Ethnic Group | Unknown | + + + Author + + + | Author | [facility] | | | and [place] | + + + | Organization | [facility] [...] | | | | | [place] [address] | | + + + + + | Najma Krishnamurthy | ECON | Unknown | | + + + + + | Hector Mack | ECON | [address] | | | | | [place] | | | | | [address] | | + + + + + | Najma Sanches | ECON | Unknown | | + + + + + Care Team Providers + +------+ + | Care Machine Brush Maker Name | Role | Phone | [...] + + | 01/08/ | Telephone | [facility] | Liseth Cuevas RN | ED Follow-up | | 2017 | | HOSPITAL EMERGENCY | | | | | | [address] | | | | | | [place], [place] | | | | | | [address] | | | | | | [phone] | | | +--------+ + + + [...]
--- OUTSIDE RECORDS SUMMARY | ~2019-07-26 | XMS | Encounter Summary ---
Demographics + + + | Address | BAD ADDRESS | | | [place] [address] | + + + | Home Phone [...] Author | [facility] | | | and [place] | + + + | Organization | [facility] | | [...] | | | | | [place] [address] | | + + + + + | Najma Krishnamurthy | ECON | Unknown | | + + + + + | Hector Mack | ECON | [address] | | | | | [place] | | | | | [address] | | + + + + + | Najma Sanches | ECON | Unknown | | + + + + + Care Team Providers + +------+ + | Care Long Term Care Phlebotomist Name | Role | Phone | + +------+ + PCP | Unavailable | + +------+ + Encounter Details +--------+ + + + + | Date | Type | Department | Care Team | Description | +--------+ + + + + | 07/18/ | Hospital | [facility] | | | | 1996 - | Encounter | MED CTR MED ONC | | | | | | [address] [place] | | | | 07/23/ | | [place] [address] | | | | 1996 | | [phone] | | | +--------+ + + + [...]
--- OUTSIDE RECORDS SUMMARY | ~2019-07-26 | XMS | Encounter Summary ---
Demographics + + + | Address | [address] | | | [place] [address] | + + + | Home Phone [...] [place] | | | | | [address] | | + + + + + Care Team Providers + +------+ + | Care Cable Tv Installer Name | Role | Phone | [...] as of this encounter Progress Notes Interface, Stenographer Print Shop In - 11/28/2005 2:08 AM PDT [id number] ARETHA RAE [id number] Clinic Date: 11/22/2005 Clinic: [facility] [...] conference presentation. Herberth Ayala M.D. Chelsie / [id number] / [id number] / [id number] / [id number] Electronically signed by Herberth Brambila 11-27-2005 02:01:34 PM documented i n this encounter Plan of Treatment Not on filedocumented as of this encounter Visit Diagnoses Not on filedocumented in this encounter"
--- OUTSIDE RECORDS SUMMARY | ~2019-07-26 | XMS | Encounter Summary ---
Demographics + + + | Address | BAD ADDRESS | | | [place] [address] | + + + | Home Phone [...] | Author | [facility] | | | and [place] | + + + | Organization | [facility] | [...] | | | | | [place] [address] | | + + + + + | Najma Krishnamurthy | ECON | Unknown | | + + + + + | Hector Mack | ECON | [address] | | | | | [place] | | | | | [address] | | + + + + + | Najma Sanches | ECON | Unknown | | + + + + + Care Team Providers + +------+ + | Care Microfilm Mounter Name | Role | Phone | + +------+ + PCP | Unavailable | + +------+ + Encounter Details +--------+ + + + + | Date | Type | Department | Care Team | Description | +--------+ + + + + | 04/27/ | Hospital | [facility] | | | | 1997 - | Encounter | MED CTR CARDIAC | | | | | | SERVICES [address] | | | | 06/16/ | | [address] [place], | | | | 1997 | | [place] [address] | | | +--------+ + + + [...]
--- OUTSIDE RECORDS SUMMARY | ~2019-07-26 | XMS | Encounter Summary ---
Demographics + + + | Address | [address] | | | [place] [address] | + + + | Home Phone [...] [place] | | | | | [address] | | + + + + + Care Team Providers + +------+ + | Care Internal Controls Specialist Name | Role | Phone | + +------+ + | Tuan Chan MD | PCP | | + +------+ + Encounter Details +--------+ + + + + | Date | Type | Department | Care Team | Description | +--------+ + + + + | 03/11/ | Results | Urology Fertility | Renato Chow MD | | | 2010 | Only | [address] | | | | | | Mailcode: CH10U | | | | | | [facility] | | | | | | and Healing, | | | | | | Building | | | | | | Floor [place], [place] | | | | | | [address] | | | | | | [phone] | | | +--------+ + + + [...] [facility] | [address] | [place] [address] | | | PATHOLOGY | [address] | | | + + + + + documented in this encounter Visit Diagnoses Not on filedocumented in this encounter"
--- OUTSIDE RECORDS SUMMARY | ~2019-07-26 | XMS | Encounter Summary ---
Demographics + + + | Address | BAD ADDRESS | | | [place] [address] | + + + | Home Phone [...] | Author | [facility] | | | and [place] | + + + | Organization | [facility] | | | and [place] | + + + | Address | Unknown | + + + | Phone | Unavailable | + + + Support + + + + + | Name | Relationship | Address | Phone | + + + + + | Hector Mack | ECON | [address] | | | | | [place] [address] | | + + + + + | Najma Krishnamurthy | ECON | Unknown | | + + + + + | Hector Mack | ECON | [address] | | | | | [place] | | | | | [address] | | + + + + + | Najma Sanches | ECON | Unknown | | + + + + + Care Team Providers + +------+ + | Care Art Objects Salesperson Name | Role | Phone | + +------+ + PCP | Unavailable | + +------+ + Encounter Details +--------+ + + + + | Date | Type | Department | Care Team | Description | +--------+ + + + + | 07/15/ | Hospital | [facility] | Rina Diaz MD | | | 2003 - | Encounter | [facility] | [address] | | | | | INTENSIVE CARE UNIT | [place] [address] | | | 07/16/ | | [address] | [phone] | | | 2003 | | [place], [place] | | | | | | [address] | | | | | | [phone] | | | +--------+ + + + [...]
--- OUTSIDE RECORDS SUMMARY | ~2019-07-26 | XMS | Encounter Summary ---
Demographics + + + | Address | BAD ADDRESS | | | [place] [address] | + + + | Home Phone [...] + | Author | [facility] | | | and [place] | + + + | Organization | [facility] | | | [...] | | | | | [place] [address] | | + + + + + | Najma Krishnamurthy | ECON | Unknown | | + + + + + | Hector Mack | ECON | [address] | | | | | [place] | | | | | [address] | | + + + + + | Najma Sanches | ECON | Unknown | | + + + + + Care Team Providers + +------+ + | Care Theatre Professor Name | Role | Phone | + +------+ + PCP | Unavailable | + +------+ + Encounter Details +--------+ + + + + | Date | Type | Department | Care Team | Description | +--------+ + + + + | 12/22/ | Hospital | [facility] | Tuan Chan, | | | 2008 | Encounter | HOSPITAL XRAY [address] | [address] [place] [address] | | | | | [address] | [place], [place] | | | | | [place], [place] | [address] | | | | | [address] | [phone] | | | | | [phone] | | | +--------+ + + + [...]
--- OUTSIDE RECORDS SUMMARY | ~2019-07-26 | XMS | Encounter Summary ---
Demographics + + + | Address | BAD ADDRESS | | | [place] [address] | + + + | Home Phone [...] | Author | [facility] | | | and [place] | + + + | Organization | [facility] [...] | | | | | [place] [address] | | + + + + + | Najma Krishnamurthy | ECON | Unknown | | + + + + + | Hector Mack | ECON | [address] | | | | | [place] | | | | | [address] | | + + + + + | Najma Sanches | ECON | Unknown | | + + + + + Care Team Providers + +------+ + | Care Pyrotechnician Name | Role | Phone | + +------+ + PCP | Unavailable | + +------+ + Encounter Details +--------+ + + + + | Date | Type | Department | Care Team | Description | +--------+ + + + + | 11/28/ | Hospital | [facility] | Pramod Enriquez MD | | | 1998 - | Encounter | MED CTR ICU [address] | [address] [facility] | | | | | [place], | [place], [place] | | | 11/29/ | | [place] [address] | [id number] | | | 1998 | | [phone] | | | +--------+ + + + [...]
--- OUTSIDE RECORDS SUMMARY | ~2019-07-26 | XMS | Encounter Summary ---
Demographics + + + | Address | BAD ADDRESS | | | [place] [address] | + + + | Home Phone [...] | Author | [facility] | | | and [place] | + + + | Organization | [facility] | | | and [...] | | | | | [place] [address] | | + + + + + | Najma Krishnamurthy | ECON | Unknown | | + + + + + | Hector Mack | ECON | [address] | | | | | [place] | | | | | [address] | | + + + + + | Najma Sanches | ECON | Unknown | | + + + + + Care Team Providers + +------+ + | Care Production Engineer Name | Role | Phone | + +------+ + PCP | Unavailable | + +------+ + Encounter Details +--------+ + + + + | Date | Type | Department | Care Team | Description | +--------+ + + + + | 12/11/ | Hospital | [facility] | | | | 1997 - | Encounter | MED CTR GENERIC OP | | | | | | CONV DEPT [address] | | | | 01/24/ | | [place], | | | | 1997 | | [place] [address] | | | | | | [phone] | | | +--------+ + + + [...]
--- OUTSIDE RECORDS SUMMARY | ~2019-07-26 | XMS | Encounter Summary ---
Demographics + + + | Address | [address] | | | [place] [address] | + + + | Home Phone [...] [place] | | | | | [address] | | + + + + + Care Team Providers + +------+ + | Care Application Development Project Manager Name | Role | Phone [...] Isaiah | | | | | at [facility] | [facility] | | | | | [address] | [place] [address] | | | | | [address] | | | | | | [place], [address] [place] [address] | | | | | | [place], [place] | | | | | | [address] | | | | | | [phone] | | | +--------+ + + + [...] | | | | | | ([facility]LY [facility]) Obesity | | | | | | [...] view image for the detailed interpretation from [employer] results. | CARDIOLOGY | | | | + + + + + + + + | Performing | Address | City/State/Zipcode | Phone Number | | Organization | | | | + + + + + | [facility] | [address] | [place], [place] | | | CARDIOLOGY | [address] | [address] | | + + + + + | [facility] | [address] | [place] | | | CARDIOLOGY | [address] [facility] | [address] | | + + + + + documented in this encounter Visit Diagnoses Not on filedocumented in this encounter
--- OUTSIDE RECORDS SUMMARY | ~2019-07-26 | XMS | Encounter Summary ---
Demographics + + + | Address | [address] | | | [place] [address] | + + + | Home Phone [...] [place] | | | | | [address] | | + + + + + Care Team Providers + +------+ + | Care Wine And Spirits Clerk Name | Role | Phone | [...] | | Loop Mailcode: | Mary Becker [place], | | | | | [address] Physician's | [place] [address] | | | | | [address] | [phone] | | | | | [place], [place] | | | | | | [address] | | | | | | [phone] | | | +--------+ + + + [...]
--- OUTSIDE RECORDS SUMMARY | ~2019-07-26 | XMS | Encounter Summary ---
Demographics + + + | Address | [address] | | | [place] [address] | + + + | Home Phone [...] [place] | | | | | [address] | | + + + + + Care Team Providers + +------+ + | Care Tube Washer Name | Role | Phone | [...]
--- OUTSIDE RECORDS SUMMARY | ~2019-07-26 | XMS | Encounter Summary ---
Demographics + + + | Address | BAD ADDRESS | | | [place] [address] | + + + | Home Phone [...] | Author | [facility] | | | and [place] | + + + | Organization | [facility] | | | and [place] | + + + | Address | Unknown | + + + | Phone | Unavailable | + + + Support + + + + + | Name | Relationship | Address | Phone | + + + + + | Hector Mack | ECON | [address] | | | | | [place] [address] | | + + + + + | Najma Krishnamurthy | ECON | Unknown | | + + + + + | Hector Mack | ECON | [address] | | | | | [place] | | | | | [address] | | + + + + + | Najma Sanches | ECON | Unknown | | + + + + + Care Team Providers + +------+ + | Care Tray Casting Machine Operator Name | Role | Phone | + +------+ + PCP | Unavailable | + +------+ + Encounter Details +--------+ + + + + | Date | Type | Department | Care Team | Description | +--------+ + + + + | 05/15/ | Hospital | [facility] | | | | 2000 - | Encounter | MED CTR GENERIC OP | | | | | | CONV DEPT [address] | | | | 06/20/ | | [place], | | | | 2000 | | [place] [address] | | | | | | [phone] | | | +--------+ + + + [...]
--- OUTSIDE RECORDS SUMMARY | ~2019-07-26 | XMS | Encounter Summary ---
Demographics + + + | Address | [address] [place] [address] | | | [place] [address] | + + + | Home Phone [...] [place] | | | | | [address] | | + + + + + Care Team Providers + +------+ + | Care Die Repairer Trimmer Dies Name | Role | Phone | + [...] | Eugenio Mailcode: [id number] | [address] [place], | | | | | [place], [place] | [place] [address] | | | | | [address] | [phone] | | | | | [phone] | | | +--------+ + + + [...]
--- OUTSIDE RECORDS SUMMARY | ~2019-07-26 | XMS | Encounter Summary ---
Demographics + + + | Address | BAD ADDRESS | | | [place] [address] | + + + | Home Phone [...] [facility] | | | and [place] | + + + | Organization | [facility] [...] | | | | | [place] [address] | | + + + + + | Najma Krishnamurthy | ECON | Unknown | | + + + + + | Hector Mack | ECON | [address] | | | | | [place] | | | | | [address] | | + + + + + | Najma Sanches | ECON | Unknown | | + + + + + Care Team Providers + +------+ + | Care Supervisor Finishing Department Name | Role | Phone | + +------+ + PCP | Unavailable | + +------+ + Encounter Details +--------+ + + + + | Date | Type | Department | Care Team | Description | +--------+ + + + + | 09/07/ | Hospital | [facility] GENERIC IP | Conversion | Chest pain | | 2012 | Encounter | CONVERSION DEP [address] | Transaction, | | | | | [address]ANDA [address]ITT[address] | Provider Unknown | | | | | [place], [place] | [phone] | | | | | [address] | | | | | | [phone] | | | +--------+ + + + [...]
--- OUTSIDE RECORDS SUMMARY | ~2019-07-26 | XMS | Encounter Summary ---
Demographics + + + | Address | [address] | | | [place] [address] | + + + | Home Phone [...] [place] | | | | | [address] | | + + + + + Care Team Providers + +------+ + | Care Lithopress Operator Name | Role | Phone | [...] | Dyslipidemia; | | | | Mailcode: [id number] | | Dysmetabolic | | | | [facility] | | Syndrome X; Sleep | | | | [address] [place], | | Apnea; Gout; DM Circ | | | | [place] [address] | | Dis Type II, | | | | [phone] | | Uncontrolled (HCC) | +--------+ + [...] + | [facility] | [address] | [place] [address] | | | PATHOLOGY | [address] | | | + + + + + | [facility] | [address] | [place] [address] | | | PATHOLOGY | [address] | | | + + + + + documented in this encounter Visit Diagnoses + + | Diagnosis | + + | CAD (coronary artery disease) Coronary atherosclerosis of unspecified type of vessel, | | st. croix or graft | + + | Dyslipidemia [...]
--- OUTSIDE RECORDS SUMMARY | ~2019-07-26 | XMS | Encounter Summary ---
Demographics + + + | Address | [address] [address] | | | [place] [address] | + + + | Home Phone [...] [place] | | | | | [address] | | + + + + + Care Team Providers + +------+ + | Care Assistant Manager Airside Operations Name | Role | Phone | + [...] | | | Mailcode: [id number] | [place], [place] | | | | | [facility] | [address] | | | | | and Healing, | [phone] | | | | | | | | | | | Floor [place], [place] | | | | | | [address] | | | | | | [phone] | | | +--------+---------+ + + + [...] [facility] | [address] | [place], [place] | | | [place] [facility]INT OF CARE | [address] | [address] | | | TESTS | | | | + + + + + | [facility] | [address] | [place], [place] | | | TESTS | [address] | [address] | | + + + + + documented in this encounter Visit Diagnoses + + | Diagnosis | + + | Urolithiasis - Primary Urinary calculus, unspecified | + + documented in this encounter"
--- OUTSIDE RECORDS SUMMARY | ~2019-07-26 | XMS | Encounter Summary ---
Demographics + + + | Address | [address] | | | [place] [address] | + + + | Home Phone [...] [place] | | | | | [address] | | + + + + + Care Team Providers + +------+ + | Care Clinical Research Technician Name | Role | Phone | [...] Pranay | | | | | | [address] | [address] | | | | | | [place] | [address] | | | | | | Rd | [place], [place] | | | | | | [place], [place] | [address] | | | | | | [address] | | | | | | | Phone: | | | | | | | [phone] | | | | | | | Fax: | | | | | | | [phone] | | +--------+--------+ + + + + [...] (Coronary Artery | | | | Mailcode: [id number] | | Disease); Sleep | | | | [facility] | | Apnea; Gout; DM Circ | | | | [address] [place], | | Dis Type II, | | | | [place] [address] | | Uncontrolled ([facility]); | | | | [phone] | | Dyslipidemia | +--------+---------+ + + [...] risk will be manageable. Furthermore, in the medical terminologist weigh t loss will afford cardiovascualr prtection. [...] DEPARTMENT OF | [address] | [place] [address] | | | PATHOLOGY | [address] | | | + + + + + | [facility] | [address] | [place] [address] | | | PATHOLOGY | [address] | | | + + + + + documented in this encounter Visit Diagnoses + + | Diagnosis | + + | Dysmetabolic syndrome X Dysmetabolic Syndrome X | + + | CAD (coronary artery disease) Coronary atherosclerosis of unspecified type of vessel, | | ho-chunk or graft | + + | Sleep [...]
--- OUTSIDE RECORDS SUMMARY | ~2019-07-26 | XMS | Encounter Summary ---
Demographics + + + | Address | [address] | | | [place] [address] | + + + | Home Phone [...] [place] | | | | | [address] | | + + + + + Care Team Providers + +------+ + | Care Wild Life Photographer Name | Role | Phone | [...] Isaiah | | | | | at [facility] | [facility] | | | | | [address] | [place] [address] | | | | | [address] | | | | | | [place], [address] [place] [address] | | | | | | [place], [place] | | | | | | [address] | | | | | | [phone] | | | +--------+ + + + [...] view image for the detailed interpretation from [employer] results. | CARDIOLOGY | + + + + + + + + | Performing | Address | City/State/Zipcode | Phone Number | | Organization | | | | + + + + + | [facility] | [address] | [place], [place] | | | CARDIOLOGY | [facility] | [address] | | + + + + + documented in this encounter Visit Diagnoses Not on filedocumented in this encounter"
--- OUTSIDE RECORDS SUMMARY | ~2019-07-26 | XMS | Encounter Summary ---
Demographics + + + | Address | [address] | | | [place] [address] | + + + | Home Phone [...] [place] | | | | | [address] | | + + + + + Care Team Providers + +------+ + | Care Access Services Representative Name | Role | Phone | [...] | | Loop Mailcode: | Mary Becker [place], | | | | | [address] Physician's | [place] [address] | | | | | [address] | [phone] | | | | | [place], [place] | | | | | | [address] | | | | | | [phone] | | | +--------+ + + + [...]
--- OUTSIDE RECORDS SUMMARY | ~2019-07-26 | XMS | Encounter Summary ---
Demographics + + + | Address | BAD ADDRESS | | | [place] [address] | + + + | Home Phone [...] Author | [facility] | | | and [place] | + + + | Organization | [facility] | [...] | | | | | [place] [address] | | + + + + + | Najma Krishnamurthy | ECON | Unknown | | + + + + + | Hector Mack | ECON | [address] | | | | | [place] | | | | | [address] | | + + + + + | Najma Sanches | ECON | Unknown | | + + + + + Care Team Providers + +------+ + | Care Human Resource Manager Name | Role | Phone | + +------+ + PCP | Unavailable | + +------+ + Encounter Details +--------+ + + + + | Date | Type | Department | Care Team | Description | +--------+ + + + + | 04/27/ | Hospital | [facility] | Trevor Hunter | | | 2000 - | Encounter | HEART MED CTR | A Jesus Bartholomew | | | | | CARDIAC TELEMETRY | [address] | | | 05/15/ | | [address] | [address] [place], [place] | | | 2000 | | [place], [place] | [id number] | | | | | [address] | | | | | | [phone] | | | +--------+ + + + [...]
--- OUTSIDE RECORDS SUMMARY | ~2019-07-26 | XMS | Encounter Summary ---
Demographics + + + | Address | BAD ADDRESS | | | [place] [address] | + + + | Home Phone [...] | Author | [facility] | | | and [place] | + + + | Organization | [facility] [...] | | | | | [place] [address] | | + + + + + | Najma Krishnamurthy | ECON | Unknown | | + + + + + | Hector Mack | ECON | [address] | | | | | [place] | | | | | [address] | | + + + + + | Najma Sanches | ECON | Unknown | | + + + + + Care Team Providers + +------+ + | Care Chief Financial Officer Name | Role | Phone | [...] + + | 02/03/ | Office | [facility] | Landen Zimmer, | Rash and other | | 2018 | Visit | HOSPITAL DERMATOLOGY | SHREDDING SPECIALIST [address] | nonspecific skin | | | | CLINIC [address] | [place], | eruption (Primary | | | | DR [place], | [place] [address] | Dx) | | | | [place] [address] | [phone] | | | | | [phone] | | | +--------+---------+ + + + [...] encounter Patient Instructions Patient Instructions Katherine Dixon, EXCHANGE UNDERWRITING CONSULTANT - 02/03/2018 2:31 PM PSTThe patient was student counsellor ed regarding the above findings: Please return [...] a.m. to 4 p.m. Date Last Reviewed: 03/31/[id number] [employer] [place] [address], [place] [address]. All [facility] ts reserved. This information is not intended as a substitute for professional medical care. Always follow your healthcare professional's instructions. documented in this encounter Progress Notes Landen Zimmer, SHREDDING SPECIALIST - 02/03/2018 1:15 PM PST Patient Name: [...] A total of 40 minutes was spent epyt-th-brgp with patient, greater than 50% of which [...] the serv ices I performed. Landen Zimmer, METAL NUMERICAL CONTROL PROGRAMMER-BC, DCNP documented in this encounter Plan of [...] vs. lupus vs. other. C. Sent to [place] | | | for Dif. R21 (rash [...] component was performed by | | | [facility], [facility], [address] [place] [address] | | | [place], [place] [address] (Roll Filler: Papi Gabriel MD; CLIA# | | | [id number]). Professional interpretation was performed by [employer] | | | Diagnostics, [facility], [address] | | | [place] [address] (Roll Filler: Spencer Whitley | | | Chey Edmond; CLIA#: [id number]). Professional interpretation | | | of the direct immunofluorescence was performed by [facility], | | | [address] [place] [address] (Roll Filler: | | | Eitan Baig D.O.; CLIA#: [id number]). Diagnostician: | | | Spencer Edmond MD [...]
--- OUTSIDE RECORDS SUMMARY | ~2019-07-26 | XMS | Encounter Summary ---
Demographics + + + | Address | [address] | | | [place] [address] | + + + | Home Phone [...] [place] | | | | | [address] | | + + + + + Care Team Providers + +------+ + | Care Cable Armorer Name | Role | Phone | + [...] as of this encounter Progress Notes Interface, [facility] Lead In - 11/28/2005 2:08 AM PDT [id number] ARETHA RAE [id number] Clinic Date: 11/22/2005 Clinic: [facility] [...] conference presentation. Herberth Ayala M.D. Chelsie / [id number] / [id number] / [id number] / [id number] Electronically signed by Herberth Brambila 11-27-2005 02:01:34 PM documented i n this encounter Plan of Treatment Not on filedocumented as of this encounter Visit Diagnoses Not on filedocumented in this encounter"
--- OUTSIDE RECORDS SUMMARY | ~2019-07-26 | XMS | Encounter Summary ---
Demographics + + + | Address | BAD ADDRESS | | | [place] [address] | + + + | Home Phone [...] | [facility] | | | and [place] | + + + | Organization | [facility] [...] | | | | | [place] [address] | | + + + + + | Najma Krishnamurthy | ECON | Unknown | | + + + + + | Hector Mack | ECON | [address] | | | | | [place] | | | | | [address] | | + + + + + | Najma Sanches | ECON | Unknown | | + + + + + Care Team Providers + +------+ + | Care Automobile Mechanic Apprentice Name | Role | Phone | + +------+ + PCP | Unavailable | + +------+ + Encounter Details +--------+ + + + + | Date | Type | Department | Care Team | Description | +--------+ + + + + | 02/18/ | Hospital | [facility] | | | | 2005 | Encounter | MED CTR EMERGENCY | | | | | | CENTER [address] | | | | | | [place], [place] | | | | | | [address] | | | | | | [phone] | | | +--------+ + + + [...]
--- OUTSIDE RECORDS SUMMARY | ~2019-07-26 | XMS | Encounter Summary ---
Demographics + + + | Address | [address] | | | [place] [address] | + + + | Home Phone [...] [place] | | | | | [address] | | + + + + + Care Team Providers + +------+ + | Care Records Management Assistant Name | Role | Phone | [...] | | | | Mailcode: CH10U | [place], [place] | | | | | [facility] | [address] | | | | | and Healing, | [phone] | | | | | | | | | | | Floor [place], [place] | | | | | | [address] | | | | | | [phone] | | | +--------+---------+ + + + [...] [facility] | [address] | [place], [place] | | | [place] [facility]INT OF CARE | [address] | [address] | | | TESTS | | | | + + + + + | [facility] | [address] | [place], [place] | | | TESTS | [address] | [address] | | + + + + + documented in this encounter Visit Diagnoses + + | Diagnosis | + + | Urolithiasis - Primary Urinary calculus, unspecified | + + documented in this encounter"
--- OUTSIDE RECORDS SUMMARY | ~2019-07-26 | XMS | Encounter Summary ---
Demographics + + + | Address | [address] | | | [place] [address] | + + + | Home Phone [...] [place] | | | | | [address] | | + + + + + Care Team Providers + +------+ + | Care Carpenter Helper Maintenance Name | Role | Phone | [...] | | | | | | | [facility] | | | | | | | [place] | | | | | | | [facility] | | | | | | | ([facility]) | | | | | | | [place], | | | | | | | [place] [address] | | | | | | | Phone: | | | | | | | [phone] | | | | | | | Fax: | | | | | | | [phone] | +--------+--------+ + + + + Encounter [...] Birch Kennedi | | | | | [facility] | [facility] [place] | | | | | [address] [facility] | [address] | | | | | ([facility]) | [phone] | | | | | [place], [place] | | | | | | [address] | | | | | | [phone] | | | +--------+ + + + [...] urinate. 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 IS THERE POSSIBILITY OF A URINARY TRACT [...] For medical emergencies, call 911. Call: [facility] Urology/Renal Transplant at If you [...] weeks Follow Up Tests: (Tests at [facility] must be entered into [facility]) Ureteral stent removal Discharge Patient To: Home Discharging Provider: GAUTAM TAVERAS MD Date Completed: 09/08/2008 [facility] Home Care After CYSTOSCOPY Follow the guidelines [...] from 8:00 4:30, call the Urology Clinic [phone]. After hours, weekend and holidays call the Hospital [facility] at [phone]. Ask for them to page your doctor. [...] | | | | | acid.Performed by [facility] | | | | | | [facility]ly [facility],[address] | | | | | | [place] [address] | | | | | | [phone]. | | | | | | [facility], | | | | | [...] [facility] | [address] | [place] [address] | | | PATHOLOGY | [address] [...]
--- OUTSIDE RECORDS SUMMARY | ~2019-07-26 | XMS | Encounter Summary ---
Demographics + + + | Address | BAD ADDRESS | | | [place] [address] | + + + | Home Phone [...] | Author | [facility] | | | and [place] | + + + | Organization | [facility] | | | and [...] | | | | | [place] [address] | | + + + + + | Najma Krishnamurthy | ECON | Unknown | | + + + + + | Hector Mack | ECON | [address] | | | | | [place] | | | | | [address] | | + + + + + | Najma Sanches | ECON | Unknown | | + + + + + Care Team Providers + +------+ + | Care Boring Mill Set Up Operator Name | Role | Phone | + +------+ + PCP | Unavailable | + +------+ + Encounter Details +--------+ + + + + | Date | Type | Department | Care Team | Description | +--------+ + + + + | 02/18/ | Hospital | [facility] | | | | 2005 | Encounter | MED CTR EMERGENCY | | | | | | CENTER [address] | | | | | | [place], [place] | | | | | | [address] | | | | | | [phone] | | | +--------+ + + + [...]
--- OUTSIDE RECORDS SUMMARY | ~2019-07-26 | XMS | Encounter Summary ---
Demographics + + + | Address | [address] | | | [place] [address] | + + + | Home Phone [...] [place] | | | | | [address] | | + + + + + Care Team Providers + +------+ + | Care Regulatory Consultant Name | Role | Phone | [...] as of this encounter Discharge Summaries Interface, Taximeter Repairer In - 02/20/2006 2:34 AM [facility] [id number] ARETHA RAE [id number] Admission Date: 02/05/2006 Discharge Date: 02/09/2006 Staff [...] of discharge, she was seen by our caser in who assisted her with a voucher for a motel. She will stay in the local area for the next 2 days before returning home to [place]. The patient was seen by Nutrition and [...] Sana Timmons M.D. Chey Escobar M.D. / [id number] / [id number] / [id number] / [id number] E: 02/11/2006 cmw cc: Tuan Chan M.D. FAX: [phone] Reviewed or Edited By Sana Timmons on 02-19-2006 Electronically signed by Herberth Brambila 02-19-2006 11:24:08 AM documented i n this encounter Plan of Treatment Not on filedocumented as of this encounter Visit Diagnoses Not on filedocumented in this encounter"
--- OUTSIDE RECORDS SUMMARY | ~2019-07-26 | XMS | Encounter Summary ---
Demographics + + + | Address | [address] | | | [place] [address] | + + + | Home Phone [...] [place] | | | | | [address] | | + + + + + Care Team Providers + +------+ + | Care Densitometer Reader Name | Role | Phone | [...] | 2007 | Visit | [address] | MD [address] | (Primary Dx) | | | | Mailcode: CH10U | [place], [place] | | | | | [facility] | [address] | | | | | and Healing, | [phone] | | | | | [facility] | | | | | | Floor [place], [place] | | | | | | [address] | | | | | | [phone] | | | +--------+---------+ + + + [...] Resident Division of Urology and Renal Transplantation [facility] oe Hdez - 10/19/2007 1:51 PM [...] Lab) | | | | | | [facility] | | | | | | [address] [address] | | | | | [address] | | | | | | [place], [place] | | | | | | [id number]: Test | | | | | | performed at [facility] | | | | | | [facility] | | | | | | Laboratory. | | | | + + + + + + + + | Specimen | + + | Urine - Urine | + + + + + + + | Performing | Address | City/State/Zipcode | Phone Number | | Organization | | | | + + + + + | [facility] | [address] | [place] [address] | | | LAB-MICRO | | | [...] | AMY PAPPAS | [address] | [place], [place] | | | [facility] | [address] | [address] | | | TESTS | | | | + + + + + | [facility] | [address] | [place], [place] | | | TESTS | [address] | [address] | | + + + + + documented in this encounter Visit Diagnoses + + | Diagnosis | + + | Urolithiasis - Primary Urinary calculus, unspecified | + + documented in this encounter"
--- OUTSIDE RECORDS SUMMARY | ~2019-07-26 | XMS | Encounter Summary ---
Demographics + + + | Address | BAD ADDRESS | | | [place] [address] | + + + | Home Phone [...] | [facility] | | | and [place] | + + + | Organization | [facility] [...] | | | | | [place] [address] | | + + + + + | Najma Krishnamurthy | ECON | Unknown | | + + + + + | Hector Mack | ECON | [address] | | | | | [place] | | | | | [address] | | + + + + + | Najma Sanches | ECON | Unknown | | + + + + + Care Team Providers + +------+ + | Care Chemical Engineering Technologist Name | Role | Phone | + +------+ + PCP | Unavailable | + +------+ + Encounter Details +--------+ + + + + | Date | Type | Department | Care Team | Description | +--------+ + + + + | 07/07/ | Hospital | [facility] | Isaias Ramirez, | | | 1996 | Encounter | MED CTR XRAY [address] | MD [address] [facility] | | | | | [place] | [place] | | | | | [place] [address] | [id number] | | | | | [phone] | | | +--------+ + + + [...]
--- OUTSIDE RECORDS SUMMARY | ~2019-07-26 | XMS | Encounter Summary ---
Demographics + + + | Address | BAD ADDRESS | | | [place] [address] | + + + | Home Phone [...] + | Author | [facility] | | | and [place] | + + + | Organization | [facility] [...] | | | | | [place] [address] | | + + + + + | Najma Krishnamurthy | ECON | Unknown | | + + + + + | Hector Mack | ECON | [address] | | | | | [place] | | | | | [address] | | + + + + + | Najma Sanches | ECON | Unknown | | + + + + + Care Team Providers + +------+ + | Care Tube Backer Name | Role | Phone | + +------+ + PCP | Unavailable | + +------+ + Encounter Details +--------+ + + + + | Date | Type | Department | Care Team | Description | +--------+ + + + + | 08/01/ | Hospital | [facility] | Rina Diaz MD | CHEST PAIN NEC | | 2003 - | Encounter | [facility] | [address] | | | | | INTENSIVE CARE UNIT | [place] [address] | | | 08/02/ | | [address] | [phone] | | | 2003 | | [place], [place] | | | | | | [address] | | | | | | [phone] | | | +--------+ + + + [...]
--- OUTSIDE RECORDS SUMMARY | ~2019-07-26 | XMS | Encounter Summary ---
Demographics + + + | Address | [address] | | | [place] [address] | + + + | Home Phone [...] [place] | | | | | [address] | | + + + + + Care Team Providers + +------+ + | Care Trim Master Operator Name | Role | Phone | [...] | MD [address] | ([place] ) | | | | Mailcode: CH10U | [place], [place] | | | | | [facility] | [address] | | | | | and Healing, | [phone] | | | | | [facility] | | | | | | Floor [place], [place] | | | | | | [address] | | | | | | [phone] | | | +--------+--------+ + + + [...]
--- OUTSIDE RECORDS SUMMARY | ~2019-07-26 | XMS | Encounter Summary ---
Demographics + + + | Address | BAD ADDRESS | | | [place] [address] | + + + | Home Phone | | + + + | Preferred Language | Unknown | + + + | Marital Status | | + + + | Church Affiliation | 1077 | + + + | Race | Unknown | + + + | Ethnic Group | Unknown | + + + Author + + + | Author | and [facility] | | | and [place] | + + + | Organization | [facility] | | | and [...] | | | | | [place] [address] | | + + + + + | Najma Krishnamurthy | ECON | Unknown | | + + + + + | Hector Mack | ECON | [address] | | | | | [place] | | | | | [address] | | + + + + + | Najma Sanches | ECON | Unknown | | + + + + + Care Team Providers + +------+ + | Care Gettering Operator Name | Role | Phone | + +------+ + PCP | Unavailable | + +------+ + Encounter Details +--------+ + + + + | Date | Type | Department | Care Team | Description | +--------+ + + + + | 04/22/ | Hospital | [facility] | Conversion | Pain | | 2012 | Encounter | CONVERSION DEP [address] | Transaction, | | | | | [address] | Provider Unknown | | | | | [place], [place] | [phone] | | | | | [address] | | | | | | [phone] | | | +--------+ + + + [...]
--- OUTSIDE RECORDS SUMMARY | ~2019-07-26 | XMS | Encounter Summary ---
Demographics + + + | Address | BAD ADDRESS | | | [place] [address] | + + + | Home Phone [...] | Author | [facility] | | | and [place] | + + + | Organization | [facility] | [...] | | | | | [place] [address] | | + + + + + | Najma Krishnamurthy | ECON | Unknown | | + + + + + | Hector Mack | ECON | [address] | | | | | [place] | | | | | [address] | | + + + + + | Najma Sanches | ECON | Unknown | | + + + + + Care Team Providers + +------+ + | Care Profiler Name | Role | Phone | + +------+ + PCP | Unavailable | + +------+ + Encounter Details +--------+ + + + + | Date | Type | Department | Care Team | Description | +--------+ + + + + | 12/26/ | Hospital | [facility] | | | | 1991 | Encounter | MED CTR LABORATORY | | | | | | [address] | | | | | | [place] | | | | | | [address] | | | | | | [phone] | | | +--------+ + + + [...]
--- OUTSIDE RECORDS SUMMARY | ~2019-07-26 | XMS | Encounter Summary ---
Demographics + + + | Address | BAD ADDRESS | | | [place] [address] | + + + | Home Phone [...] | Author | [facility] | | | and [place] | + + + | Organization | [facility] | | | and [...] | | | | | [place] [address] | | + + + + + | Najma Krishnamurthy | ECON | Unknown | | + + + + + | Hector Mack | ECON | [address] | | | | | [place] | | | | | [address] | | + + + + + | Najma Sanches | ECON | Unknown | | + + + + + Care Team Providers + +------+ + | Care House Supervisor Name | Role | Phone | + +------+ + PCP | Unavailable | + +------+ + Encounter Details +--------+ + + + + | Date | Type | Department | Care Team | Description | +--------+ + + + + | 11/12/ | Hospital | [facility] | Lalo Londono MD | | | 2004 | Encounter | MED CTR GENERIC OP | [address] | | | | | CONV DEPT [address] | [address] | | | | | [place], | [address] | | | | | [place] [address] | | | | | | [phone] | | | +--------+ + + + [...]
--- OUTSIDE RECORDS SUMMARY | ~2019-07-26 | XMS | Encounter Summary ---
Demographics + + + | Address | [address] | | | [place] [address] | + + + | Home Phone [...] [place] | | | | | [address] | | + + + + + Care Team Providers + +------+ + | Care Intern Product Marketing Manager Name | Role | Phone | [...] | | | | | | [address] [place], [place] | | | | | | [address] | | | | | | [phone] | | | +--------+ + + + [...]
--- OUTSIDE RECORDS SUMMARY | ~2019-07-26 | XMS | Encounter Summary ---
Demographics + + + | Address | BAD ADDRESS | | | [place] [address] | + + + | Home Phone [...] | Author | [facility] | | | and [place] | + + + | Organization | [facility] | | [...] | | | | | [place] [address] | | + + + + + | Najma Krishnamurthy | ECON | Unknown | | + + + + + | Hector Mack | ECON | [address] | | | | | [place] | | | | | [address] | | + + + + + | Najma Sanches | ECON | Unknown | | + + + + + Care Team Providers + +------+ + | Care Welder Assistant Name | Role | Phone | [...] | | | 1994 | | [place] [address] | | | | | | [phone] | | | +--------+ + + + [...]
--- NOTE | 2019-07-26 11:26 | EKG ---
[facility] [address] [facility] [place] [address] Signed Sinus rhythm with premature atrial complexes Nonspecific ST and T wave abnormality Abnormal ECG No previous ECGs available Confirmed by JEANETTE POZO MD ([id number]) on 07/26/2019 11:26:24 AM Electronically Signed By: JEANETTE POZO MD 07/26/19 1126 PATIENT NAME: [id number] Electrocardiogram DATE OF : 43 PHYSICIAN: JEANETTE POZO MD REPORT #: [id number] REPORT IS CONFIDENTIAL AND NOT TO BE RELEASED WITHOUT AUTHORIZATION
== END 2019-07-26 13:10 | disposition short-term general hospital (02) ==
LOC: ED 07:52
DX: G40.909 Epilepsy, unspecified, not intractable, without status epilepticus (principal); R79.89 Other specified abnormal findings of blood chemistry; J44.9 Chronic obstructive pulmonary disease, unspecified; K21.9 Gastro-esophageal reflux disease without esophagitis; I10 Essential (primary) hypertension; F03.90 Unspecified dementia, unspecified severity, without behavioral disturbance, psychotic disturbance, mood disturbance, and anxiety; F17.200 Nicotine dependence, unspecified, uncomplicated; Z88.5 Allergy status to narcotic agent; Z79.899 Other long term (current) drug therapy
CPT/HCPCS: 70450; 80053; 81001; 82542; 83735; 84484; 85025; 93005; 93010; 99285-25

== ENCOUNTER 2019-09-05 09:22 | Emergency (ER) | payer MEDICARE, OTHER ==
[~2019-09-05] VITALS: Ht 154.9 cm; Wt 57.6 kg
--- OUTSIDE RECORDS SUMMARY | ~2019-09-05 | XMS | Encounter Summary ---
Demographics + + + | Address | [address] | | | [place] [address] | + + + | Home Phone | | + + + | Preferred Language | Unknown | + + + | Marital Status | | + + + | Mormonism Affiliation | 1077 | + + + | Race | Unknown | + + + | Ethnic Group | Unknown | + + + Author + + + | Author | [facility] | | | and [place] | + + + | Organization | [facility] | | | and [place] | + + + | Address | Unknown | + + + | Phone | Unavailable | + + + Support + + + + + | Name | Relationship | Address | Phone | + + + + + | Hector Mack | ECON | [address] | | | | | [place] | | | | | [address] | | + + + + + | Najma Xiong | ECON | Unknown | | + + + + + | Hector Mack | ECON | [address] | | | | | [place] | | | | | [address] | | + + + + + Care Team Providers + +------+ + | Care Theatre Manager Name | Role | Phone | + +------+ + PCP | Unavailable | + +------+ + Encounter Details +--------+ + + + + | Date | Type | Department | Care Team | Description | +--------+ + + + + | 02/18/ | Hospital | [facility] | | | | 2004 | Encounter | MED CTR EMERGENCY | | | | | | CENTER [address] | | | | | | [place] | | | | | | [address] | | | | | | [phone] | | | +--------+ + + + [...] as of this encounter Plan of Treatment +--------+---------+ + + + | Date | Type | Specialty | Care Team | Description | +--------+---------+ + + + | 11/25/ | Office | Neurology | Duarte Moon MD | | | 2020 | Visit | | [address] | | | | | | [place] | | | | | | [id number] | | | | | | | | +--------+---------+ + + + documented as of this encounter Visit Diagnoses Not on filedocumented in this encounter"
--- OUTSIDE RECORDS SUMMARY | ~2019-09-05 | XMS | Encounter Summary ---
Demographics + + + | Address | [address] | | | [place] [address] | + + + | Home Phone | | + + + | Preferred Language | Unknown | + + + | Marital Status | | + + + | Mandaeism Affiliation | PRO | + + + | Race | White | + + + | Ethnic Group | Not or | + + + Author + + + | Author | [facility] | + + + | Organization | [facility] | + + + | Address | Unknown | + + + | Phone | Unavailable | + + + Support + + + + + | Name | Relationship | Address | Phone | + + + + + | Hector Mack | ECON | [address] | | | | | [place] | | | | | [address] | | + + + + + Care Team Providers + +------+ + | Care Rn Icu Name | Role | Phone | + +------+ + | Tuan Chan MD | PCP | | + +------+ + Encounter Details +--------+ + + + + | Date | Type | Department | Care Team | Description | +--------+ + + + + | 10/25/ | Ancillary | Registration [address] | Papi Johnson MD | | | 2005 | Registratio | [address] | [address] | | | | n | [place] Mailcode: RPB07 | [place], | | | | | [place], [place] | [place] [address] | | | | | [address] | [phone] | | | | | [phone] | | | +--------+ + + + [...]
--- OUTSIDE RECORDS SUMMARY | ~2019-09-05 | XMS | Encounter Summary ---
Demographics + + + | Address | [address] | | | [place] [address] | + + + | Home Phone | | + + + | Preferred Language | Unknown | + + + | Marital Status | | + + + | Christian Affiliation | PRO | + + + | Race | White | + + + | Ethnic Group | Not or | + + + Author + + + | Author | [facility] | + + + | Organization | [facility] | + + + | Address | Unknown | + + + | Phone | Unavailable | + + + Support + + + + + | Name | Relationship | Address | Phone | + + + + + | Hector Mack | ECON | [address] | | | | | [place] | | | | | [address] | | + + + + + Care Team Providers + +------+ + | Care Business Attorney Name | Role | Phone | + +------+ + | Tuan Chan MD | PCP | | + +------+ + Encounter Details +--------+ + + + + | Date | Type | Department | Care Team | Description | +--------+ + + + + | 10/24/ | Results | General Surgery | Papi Johnson MD | | | 2005 | Only | [address] | [address] | | | | | Loop Mailcode: | [place], | | | | | [address] [facility] | [place] [address] | | | | | [address] | [phone] | | | | | [place], [place] | | | | | | [address] | | | | | | [phone] | | | +--------+ + + + [...] | + +--------+ + + + | X-RAY ESOPHAGRAM | Routin | 11/22/2005 | | Results for this | | | e | 9:51 AM | | procedure are in the | | | | PDT | | results section. | + +--------+ + + + documented in this encounter Results ESOPHAGRAM (11/22/2005 9:51 AM PDT) + + + + + + | Component | Value | Ref Range | Performed | Pathologist | | | | | At | Signature | + + + + + + | ESOPHAGUS | Radiologist 1: YASHIRA, | | | | | | BRITNEY: Single | | | | | | contrast esophagram, | | | | | | 11/22/05 COMPARISON: No | | | | | | previous studies | | | | | | available for | | | | | | comparison. | | | | | | FINDINGS:There are | | | | | | normal rapid swallowing | | | | | | motions. The upper | | | | | | esophagealmucosa is | | | | | | normal in appearance. | | | | | | On the first swallow | | | | | | of barium,the swallowed | | | | | | liquid empties from the | | | | | | esophagus normally into | | | | | | thestomach. On the | | | | | | subsequent swallows, | | | | | | there was severe delay | | | | | | inopening of the | | | | | | gastroesophageal | | | | | | sphincter, in | | | | | | association withtertiary | | | | | | contractions. Very | | | | | | small and intermittent | | | | | | episodes ofemptying | | | | | | noted subsequently, with | | | | | | the vast majority of | | | | | | swallowedbarium still in | | | | | | the esophagus at the | | | | | | time of the conclusion | | | | | | ofthis examination. | | | | | | The small amount of | | | | | | barium that enters | | | | | | thestomach exits | | | | | | normally and rapidly | | | | | | present. There is a | | | | | | tinyhiatal hernia | | | | | | present, but no definite | | | | | | associated reflux. | | | | | | IMPRESSION:1. Findings | | | | | | are consistent with | | | | | | achalasia, with | | | | | | near-completeemptying of | | | | | | swallowed barium on the | | | | | | initial swallow, | | | | | | andsubsequent marked | | | | | | delay in emptying | | | | | | through the very | | | | | | spasticgastroesophageal | | | | | | sphincter. 2. Marked | | | | | | tertiary contractions | | | | | | seen in association with | | | | | | theesophageal sphincter | | | | | | spasm. | | | | + + + + + + + + | Specimen | + + | | + + + +---------+ + + | Performing | Address | City/State/Zipcode | Phone Number | | Organization | | | | + +---------+ + + | [facility] | | | | | RADIOLOGY | | | | + +---------+ + + documented in this encounter Visit Diagnoses Not on filedocumented in this encounter"
--- OUTSIDE RECORDS SUMMARY | ~2019-09-05 | XMS | Encounter Summary ---
Demographics + + + | Address | [address] | | | [place] [address] | + + + | Home Phone | | + + + | Preferred Language | Unknown | + + + | Marital Status | | + + + | Temple Affiliation | PRO | + + + | Race | White | + + + | Ethnic Group | Not or | + + + Author + + + | Author | [facility] | + + + | Organization | [facility] | + + + | Address | Unknown | + + + | Phone | Unavailable | + + + Support + + + + + | Name | Relationship | Address | Phone | + + + + + | Hector Mack | ECON | [address] | | | | | [place] | | | | | [address] | | + + + + + Care Team Providers + +------+ + | Care Disassembler Product Name | Role | Phone | + +------+ + | Tuan Chan MD | PCP | | + +------+ + Reason for Visit + + + | Reason | Comments | + + + | Refill Request | Reji | + + + Encounter Details +--------+--------+ + + + | Date | Type | Department | Care Team | Description | +--------+--------+ + + + | 07/14/ | Refill | Urology Adult | Noe Hdez, | Refill Request | | 2007 | | [address] | MD [address] | ([place] ) | | | | Mailcode: CH10U | [place], [place] | | | | | [facility] | [address] | | | | | and [facility], | [phone] | | | | | [facility] | | | | | | Floor [place], [place] | | | | | | [address] | | | | | | [phone] | | | +--------+--------+ + + + Social History + + [...]
--- OUTSIDE RECORDS SUMMARY | ~2019-09-05 | XMS | Encounter Summary ---
Demographics + + + | Address | [address] | | | [place] [address] | + + + | Home Phone | | + + + | Preferred Language | Unknown | + + + | Marital Status | | + + + | Mandaeism Affiliation | [id number] | + + + | Race | Unknown | + + + | Ethnic Group | Unknown | + + + Author + + + | Author | [facility] | | | and [place] | + + + | Organization | [facility] | | | and [place] | + + + | Address | Unknown | + + + | Phone | Unavailable | + + + Support + + + + + | Name | Relationship | Address | Phone | + + + + + | Hector Mack | ECON | [address] | | | | | [place] | | | | | [address] | | + + + + + | Najma Xiong | ECON | Unknown | | + + + + + | Hector Mack | ECON | [address] | | | | | [place] | | | | | [address] | | + + + + + Care Team Providers + +------+ + | Care High Pressure Cleaner Name | Role | Phone | + +------+ + | Tuan Chan MD | PCP | | + +------+ + Encounter Details +--------+ + + + + | Date | Type | Department | Care Team | Description | +--------+ + + + + | 06/10/ | Hospital | [facility] | Leandra Chávez, | Unstable angina | | 2016 - | Encounter | MED [facility] ICU [address] | MD [address] | ([facility]) (Primary Dx); | | | | [place], | [place], [place] | Non-cardiac chest | | 06/11/ | | [place] [address] | [address] | pain | | 2015 | | [phone] | | | +--------+ + + + + Social History + +-------+ +--------+ + | Tobacco Use | Types | Packs/Day | Years | Date | | | | | Used | | + +-------+ +--------+ + | Former Smoker | | 1 | 20 | Quit: 04/13/1985 | + +-------+ +--------+ + + +---+---+---+ | Smokeless Tobacco: | | | | | Never Used | | | | + +---+---+---+ + + +---------+ + | Alcohol Use | Drinks/Week | oz/Week | Comments | + + +---------+ + | No | | | | + + +---------+ + + + [...] + + + | Blood Pressure | 163/64 | 06/12/2015 7:27 AM | | | | | PDT | | + + + + + | Pulse | 71 | 06/12/2015 7:27 AM | | | | | PDT | | + + + + + | Temperature | 36.7 C (98.1 F) | 06/12/2015 7:27 AM | | | | | PDT | | + + + + + | Respiratory Rate | 14 | 06/12/2015 7:27 AM | | | | | PDT | | + + + + + | Oxygen Saturation | 96% | 06/12/2015 7:27 AM | | | | | PDT | | + + + + + | Inhaled Oxygen | - | - | | | Concentration | | | | + + + + + | Weight | 78.1 kg (172 lb 2.9 | 06/12/2015 12:51 AM | | | | oz) | PDT | | + + + + + | Height | 162.6 cm (5' 4") | 06/11/2015 10:00 PM | | | | | PDT | | + + + + + | Body Mass Index | 29.55 | 06/11/2015 10:00 PM | | | | | PDT | | + + + + + documented in this encounter Functional Status + + + + | Functional Status | Response | Date of Assessment | + + + + | Are you deaf or do you have serious | No | 06/12/2015 | | difficulty hearing? | | | + + + + | Are you blind or do you have serious | No | 06/12/2015 | | difficulty seeing, even when wearing | | | | glasses? | | | + + + + | Do you have serious difficulty walking or | No | 06/12/2015 | | climbing stairs? (5 years old or older) | | | + + + + | Do you have difficulty dressing or bathing? | No | 06/12/2015 | | (5 years old or older) | | | + + + + | Because of a physical, mental, or emotional | No | 06/12/2015 | | condition, do you have difficulty doing | | | | errands alone such as visiting a doctor's | | | | office or shopping? [15 years old or | | | | older)] | | | + + + + + + + + | Cognitive Status | Response | Date of Assessment | + + + + | Because of a physical, mental, or emotional | No | 06/12/2015 | | condition, do you have serious difficulty | | | | concentrating, remembering, or making | | | | decisions? (5 years old or older) | | | + + + + documented as of this encounter Discharge Summaries Leandra Chávez MD - 06/12/2015 8:39 AM PDTFormatting of this note might be different fr om the original. DISCHARGE SUMMARY PATIENT NAME/: Germaine Heard, (1945) DATE OF ADMISSION: 06/11/2015 DATE OF DISCHARGE: 06/12/2015 DISCHARGING PHYSICIAN: Leandra Chávez MD ADMITTING DIAGNOSIS: Unstable angina PRIMARY CARE PROVIDER: Tuan Chan MD DISPOSITION: Discharge to home BRIEF HOSPITAL COURSE: Please see the history and physical at the time of admission. Briefly, Ms. Fili rojas is a 69 y.o. female who was admitted on 06/11/2015 with Unstable angina . She was transferred from [facility] with ongoing chest pain. Today at lunch time she developed chest discomfort. She was preparing lunch at the time. T preethi discomfort was sharp and stabbing. She was transferred from [facility] on NTG and heparin. The transfer took about 8 hours. The pain has not gone away. She was started on NTG drip a nd heparin. NTG was titrated up. She arrived here on 30 mcg/ min. She still had 4/10 pain . She had no acute ECG changes. She had some dyspnea and diaphoresis no radiation. 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 Left Heart Catheterization for pressures 2. Coronary Angiography 3. Left Ventriculography 4. Bypass graft angiography DESCRIPTION OF PROCEDURE: Informed consent was obtained from the patient, and a time-out was performed to verify the patient's identification and planned procedure. Please refer to the computer log entry form for precise details. The patient was brought to the lab emergently due to ongoing chest pain . The patient's right groin was then prepped and draped in the usual sterile fashion, and a nesthetized with 1% lidocaine. A 6F sheath was inserted. Coronary angiography was performed in multiple views using 6 [place] JL5 and 5 F AL1 and an JESUS diagnostic catheters. A 5 frenc h pigtail catheter was advanced into the left ventricle, pressures were measured, and left v entriculography was performed. A pullback across the valve was used to assess if there was a gradient across the aortic valve. We then went back with the AL1 to engage the jump graft to the OMB. Manual was utilized to achieve successful hemostasis in the femoral artery. There was a liv h in the groins that prevented using a sealing device. There were no immediate complication s. Estimated blood loss was 10 cc. FINDINGS: Hemodynamics: Left ventricular end-diastolic pressure (LVEDP) was 22 mm Hg. There was no gradient across the aortic valve. Left Ventriculography: EF 65% normal wall motion Aortic root is enlarged. Left main coronary artery: normal Left anterior descending coronary artery: 100%. Supplied via the JESUS graft. Circumflex coronary artery: Patent - extensive stents. Also supplied by Jump graft to OMB a nd diagonal Right coronary artery: extensive stents . 20-30% stenosis. Origin of the PDA 30-40%. There is a nubbin that looks like an occluded graft to the right. Graft Angiography: JESUS to the LAD - patent without disease Jump graft to the OMB and Diagonal patent without disease Possible nubbin of graft to the RCA - RCA is open CLINICAL IMPRESSION AND RECOMMENDATIONS Continue medical Rx The next morning we were able to get the last cath report from 2011. We had imaged all of the grafts and the RCA graft was closed at that time as well. She was observed overnight. She had a recurrent episode of discomfort after drinking juice. This was relieved with ant acid. She did not want to take her morphine. She was started on proton pump inhibitor. She was found to have a yeast infection of groin and axilla and was started on miconazole c ream. 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 Lungs - clear to auscultation bilaterally Musc/Skel - moves all extremities Extremities - no cyanosis. no significant edema Neurologic - no focal deficits no hematoma Skin - yeast infection of groin -axilla and back CONSULTATION: none DIAGNOSTIC STUDIES: Imaging: ECG: Selected Labs: Recent Labs Lab 06/11/15 2140 WBC 6.5 HGB 9.7* HCT 31.3* PLT 178 NA 136 K 3.4* BUN 7 CREA 0.57* GLU 97 CALCIUM 7.3* Recent Results (from the past 24 hour(s)) PTT Result Value Ref Range PTT 44 (H) 22-36 seconds Troponin I Result Value Ref Range Troponin I 0.01 <0.06 ng/mL CBC no Differential Result Value Ref Range WBC 6.5 4.0-11.0 K/uL RBC 3.62 (L) 3.70-5.20 M/uL Hgb 9.7 (L) 11.5-16.0 g/dL Hct 31.3 (L) 34.0-47.0 % MCV 86.5 83.0-101.0 fL MCH 26.9 (L) 28.0-35.0 pg MCHC 31.1 (L) 32.0-36.0 g/dL RDW-CV 15.4 (H) <15.0 % Platelet Count 178 140-440 K/uL MPV 9.3 fL Comprehensive Metabolic Panel Result Value Ref Range NA 136 136-149 mmol/L K 3.4 (L) 3.5-5.1 mmol/L CL 107 98-109 mmol/L CO2 24 24-31 mmol/L ANION GAP 5 3-16 mmol/L GLUCOSE 97 70-109 mg/dL BUN 7 7-18 mg/dL Creatinine, Serum/Plasma 0.57 (L) 0.60-1.30 mg/dL eGFR if not >60 >=60 mL/min/1.73m2 CALCIUM 7.3 (L) 8.3-10.5 mg/dL ALBUMIN 3.1 (L) 3.2-5.0 g/dL BILIRUBIN TOTAL 0.6 0.1-1.5 mg/dL Total protein 5.2 (L) 6.0-7.8 g/dL AST 20 10-42 U/L ALT 12 6-45 U/L ALK PHOS 73 40-110 U/L GLOBULIN 2.1 g/dL Albumin/Globulin ratio 1.5 BUN/CREA 12.3 Ferritin Result Value Ref Range FERRITIN 5 (L) 11-<307 ng/mL Iron and Transferrin Result Value Ref Range IRON 50 40-150 ug/dL TRANSFERRIN 288.0 240.0-480.0 mg/dL TIBC 403 235-425 ug/dL % SATURATION 12.4 (L) 20.0-55.0 % ECG 12 lead Result Value Ref Range INTERPRETATION TEXT Not Confirmed No results for input(s): TROPONINI, BNP, HDL, LDL, TRIG in the last 168 hours. Invalid input(s): CKTOTAL Recent Results (from the past 24 hour(s)) PTT Collection Time: 06/11/15 21:40 Result Value Ref Range PTT 44 (H) 22-36 seconds Troponin I Collection Time: 06/11/15 21:40 Result Value Ref Range Troponin I 0.01 <0.06 ng/mL CBC no Differential Collection Time: 06/11/15 21:40 Result Value Ref Range WBC 6.5 4.0-11.0 K/uL RBC 3.62 (L) 3.70-5.20 M/uL Hgb 9.7 (L) 11.5-16.0 g/dL Hct 31.3 (L) 34.0-47.0 % MCV 86.5 83.0-101.0 fL MCH 26.9 (L) 28.0-35.0 pg MCHC 31.1 (L) 32.0-36.0 g/dL RDW-CV 15.4 (H) <15.0 % Platelet Count 178 140-440 K/uL MPV 9.3 fL Comprehensive Metabolic Panel Collection Time: 06/11/15 21:40 Result Value Ref Range NA 136 136-149 mmol/L K 3.4 (L) 3.5-5.1 mmol/L CL 107 98-109 mmol/L CO2 24 24-31 mmol/L ANION GAP 5 3-16 mmol/L GLUCOSE 97 70-109 mg/dL BUN 7 7-18 mg/dL Creatinine, Serum/Plasma 0.57 (L) 0.60-1.30 mg/dL eGFR if not >60 >=60 mL/min/1.73m2 CALCIUM 7.3 (L) 8.3-10.5 mg/dL ALBUMIN 3.1 (L) 3.2-5.0 g/dL BILIRUBIN TOTAL 0.6 0.1-1.5 mg/dL Total protein 5.2 (L) 6.0-7.8 g/dL AST 20 10-42 U/L ALT 12 6-45 U/L ALK PHOS 73 40-110 U/L GLOBULIN 2.1 g/dL Albumin/Globulin ratio 1.5 BUN/CREA 12.3 Iron and Transferrin Collection Time: 06/11/15 21:40 Result Value Ref Range IRON 50 40-150 ug/dL TRANSFERRIN 288.0 240.0-480.0 mg/dL TIBC 403 235-425 ug/dL % SATURATION 12.4 (L) 20.0-55.0 % ECG 12 lead Collection Time: 06/11/15 21:45 Result Value Ref Range INTERPRETATION TEXT Not Confirmed MEDS: Discharge Medications New Medications Details atorvaSTATin 80 MG tablet Take 1 tablet by mouth nightly. aka: LIPITOR miconazole 2% cream Bid to rash aka: MICATIN omeprazole 20 mg capsule Take 1 capsule by mouth Daily. aka: PRILOSEC Changed Medications Details morphine 30 MG tablet Take 30 mg by mouth 2 times daily. Take 1 tablet by mouth at 2 am and 1 tablet and 2 pm What changed: Another medication with the same name was removed. Continue taking this medi cation, and follow the directions you see here. aka: MSIR Unchanged Medications Details clopidogrel 75 mg tablet Take 75 mg by mouth Daily. aka: PLAVIX dicyclomine 10 mg capsule Take 10 mg by mouth every 6 hours as needed (take 1-2 tablets by mouth every 6 hours as ne eded for abdominal pain). aka: BENTYL lisinopril 20 mg tablet Take 20 mg by mouth Daily. aka: PRINIVIL, ZESTRIL metoprolol succinate 25 mg 24 hr tablet Take 25 mg by mouth Daily. aka: TOPROL-XL oxyCODONE-acetaminophen 10-325 mg per tablet Take 1 tablet by mouth 4 times daily as needed for Pain. aka: PERCOCET potassium chloride 10 MEQ ER tablet Take 10 mEq by mouth Daily. aka: RAJI STEWART-LUIS Discontinued Medications ciprofloxacin 0.3% ophthalmic solution aka: CILOXAN diclofenac 0.1 % ophthalmic solution aka: VOLTAREN diclofenac 1.3% Ptch aka: FLECTOR prednisoLONE 1% ophthalmic suspension aka: PRED FORTE PATIENT INSTRUCTIONS: ACTIVITY: Activity as tolerated and no driving for today DIET: cardiac diet FOLLOW-UP: Follow up with primary Dr Chan in a week call if any questions or concerns Time spent on discharge planning: greater than 30 minutes Electronically signed by Leandra Chávez MD at 10:50 AM PDTdocumented in this encounter Discharge Instructions Instructions Leandra Chávez MD - 06/12/2015 Medications for Acid Reflux Your health care provider has told you that you have acid reflux. This is a condition that causes stomach acid to wash up into your throat. For most people, acid reflux is troubling b ut not dangerous. However, left untreated, acid reflux sometimes damages the esophagus. Medi cations can help control acid reflux and limit your risk of future problems. Medications for Acid Reflux Your health care provider may prescribe medication to help treat your acid reflux. Medicati on will be based on your symptoms and the results of any tests. Your health care provider wi ll explain how to take your medication. You will also be told about possible side effects. Reducing Stomach Acid Your doctor may suggest antacids that you can buy over the counter. Antacids can give fast relief.Or you may be told to take a type of medication called H2 blockers. These are avail able over the counter and by prescription (for higher doses). Blocking Stomach Acid In more severe cases, your doctor may suggest stronger medications such as protonpump inh ibitors (PPIs). These keep the stomach from making acid.They are oftenprescribed for deneen g-term use. Other Medications If medications to reduce or block stomach acid don t work, you may be switched to another type of medication that helps the stomach empty better. [id number] [employer]. [address] [place] [address], [place] [address]. All righ ts reserved. This information is not intended as a substitute for professional medical care. Always follow your healthcare professional's instructions. documented in this encounter Medications at Time of Discharge + + + +---------+ + + | Medication | Sig | Dispensed | Refills | Start | End Date | | | | | | Date | | + + + +---------+ + + | atorvaSTATin | Take 1 tablet by | 30 | 1 | 06/12/19 | | | (LIPITOR) 80 MG | mouth nightly. | tablet | | 16 | 8 | | tablet | | | | | | + + + +---------+ + + | clopidogrel | Take 75 mg by mouth | | 0 | | | | (PLAVIX) 75 mg | Daily. | | | | 9 | | tablet | | | | | | + + + +---------+ + + | dicyclomine | Take 10 mg by mouth | | 0 | | | | (BENTYL) 10 mg | every 6 hours as | | | | 8 | | capsule | needed (take 1-2 | | | | | | | tablets by mouth | | | | | | | every 6 hours as | | | | | | | needed for abdominal | | | | | | | pain). | | | | | + + + +---------+ + + | lisinopril | Take 20 mg by mouth | | 0 | | | | (PRINIVIL, ZESTRIL) | Daily. | | | | 9 | | 20 mg tablet | | | | | | + + + +---------+ + + | metoprolol | Take 25 mg by mouth | | 0 | | | | succinate | Daily. | | | | 9 | | (TOPROL-XL) 25 mg 24 | | | | | | | hr tablet | | | | | | + + + +---------+ + + | miconazole | Bid to rash | 14 g | 1 | 06/12/19 | | | (MICATIN) 2% cream | | | | 16 | 8 | + + + +---------+ + + | morphine (MSIR) 30 | Take 30 mg by mouth | | 0 | | | | MG tablet | 2 times daily. Take | | | | 9 | | | 1 tablet by mouth at | | | | | | | 2 am and 1 tablet | | | | | | | and 2 pm | | | | | + + + +---------+ + + | omeprazole | Take 1 capsule by | 30 | 1 | 06/12/19 | | | (PRILOSEC) 20 mg | mouth Daily. | capsule | | 16 | 7 | | capsule | | | | | | + + + +---------+ + + | | Take 1 tablet by | | 0 | | | | oxyCODONE-acetaminop | mouth 4 times daily | | | | 9 | | hen (PERCOCET) | as needed for Pain. | | | | | | 10-325 mg per tablet | | | | | | + + + +---------+ + + | potassium chloride | Take 10 mEq by mouth | | 0 | | | | (KEIRY STEWART) 10 | Daily. | | | | 9 | | MEQ ER tablet | | | | | | + + + +---------+ + + documented as of this encounter Plan of Treatment +--------+---------+ + + + | Date | Type | Specialty | Care Team | Description | +--------+---------+ + + + | 11/25/ | Office | Neurology | Duarte Moon MD | | | 2019 | Visit | | [address] | | | | | | [place] | | | | | | [id number] | | | | | | | | +--------+---------+ + + + documented as of this encounter Procedures + +--------+ + + + | Procedure Name | Priori | Date/Time | Associated Diagnosis | Comments | | | ty | | | | + +--------+ + + + | CV DIAGNOSTIC | Routin | 06/11/2015 | | Results for this | | CARDIAC CATH | e | 11:51 PM | | procedure are in the | | | | PDT | | results section. | + +--------+ + + + | CV DIAGNOSTIC | | 06/11/2015 | chest pain | | | CARDIAC CATH | | 10:52 PM | | | | | | PDT | | | + +--------+ + + + | CULTURE, MRSA | Routin | 06/11/2015 | | Results for this | | | e | 10:34 PM | | procedure are in the | | | | PDT | | results section. | + +--------+ + + + | ECG 12 LEAD | STAT | 06/11/2015 | | Results for this | | | | 9:45 PM | | procedure are in the | | | | PDT | | results section. | + +--------+ + + + | TROPONIN I | STAT | 06/11/2015 | | Results for this | | | | 9:40 PM | | procedure are in the | | | | PDT | | results section. | + +--------+ + + + | IRON AND TRANSFERRIN | Routin | 06/11/2015 | | Results for this | | | e | 9:40 PM | | procedure are in the | | | | PDT | | results section. | + +--------+ + + + | PTT | STAT | 06/11/2015 | | Results for this | | | | 9:40 PM | | procedure are in the | | | | PDT | | results section. | + +--------+ + + + | CBC NO DIFFERENTIAL | STAT | 06/11/2015 | | Results for this | | | | 9:40 PM | | procedure are in the | | | | PDT | | results section. | + +--------+ + + + | FERRITIN | Routin | 06/11/2015 | | Results for this | | | e | 9:40 PM | | procedure are in the | | | | PDT | | results section. | + +--------+ + + + | COMPREHENSIVE | STAT | 06/11/2015 | | Results for this | | METABOLIC PANEL | | 9:40 PM | | procedure are in the | | | | PDT | | results section. | + +--------+ + + + documented in this encounter Results CV Adult Cardiac Cath Diag/PCI (06/11/2015 11:51 PM PDT) + + | Specimen | + + | | + + + + + | Narrative | Performed At | + + + | LEFT CARDIAC CATHETERIZATION AND CABG EVALUATION | | | PATIENT NAME: Germaine Heard DATE OF : 1945 | | | DATE OF PROCEDURE: 06/12/2015 | | | | | | PRIMARY CARE PROVIDER: | | | Tuan Chan MD PROCESS TREATER: Dr. Leandra Chávez MD, | | | FACC, FSCAI PRE-PROCEDURE DIAGNOSIS: Unstable Angina | | | POST-PROCEDURE DIAGNOSIS: Non Cardiac Chest Pain PROCEDURES | | | PERFORMED: 1. Left Heart Catheterization for pressures 2. | | | Coronary Angiography 3. Left Ventriculography 4. Bypass graft | | | angiography DESCRIPTION OF PROCEDURE: Informed consent was | | | obtained from the patient, and a time-out was performed to verify | | | the patient's identification and planned procedure. Please refer | | | to the computer log entry form for precise details. The patient was | | | brought to the lab emergently due to ongoing chest pain. The | | | patient's right groin was then prepped and draped in the usual | | | sterile fashion, and anesthetized with 1% lidocaine. A 6F sheath was | | | inserted. Coronary angiography was performed in multiple views | | | using 6 [place] JL5 and 5 F AL1 and an JESUS diagnostic catheters. | | | A 5 danish pigtail catheter was advanced into the left ventricle, | | | pressures were measured, and left ventriculography was performed. | | | A pullback across the valve was used to assess if there was a | | | gradient across the aortic valve. We then went back with the AL1 to | | | engage the jump graft to the OMB. Manual was utilized to achieve | | | successful hemostasis in the femoral artery. There was a rash in | | | the groins that prevented using a sealing device. There were no | | | immediate complications. Estimated blood loss was 10 cc. | | | FINDINGS: Hemodynamics: Left ventricular end-diastolic pressure | | | (LVEDP) was 22 mm Hg. There was no gradient across the aortic | | | valve. Left Ventriculography: EF 65% normal wall motion Aortic | | | root is enlarged. Left main coronary artery: normal Left | | | anterior descending coronary artery: 100%. Supplied via the JESUS | | | graft. Circumflex coronary artery: Patent - extensive stents. Also | | | supplied by Jump graft to OMB and diagonal Right coronary artery: | | | extensive stents . 20-30% stenosis. Origin of the PDA 30-40%. | | | There is a nubbin that looks like an occluded graft to the right. | | | Graft Angiography: JESUS to the LAD - patent without disease Jump | | | graft to the OMB and Diagonal patent without disease Possible | | | nubbin of graft to the RCA - RCA is open CLINICAL IMPRESSION AND | | | RECOMMENDATIONS Continue medical Rx Leandra Saira, MD, [facility], | | | FSCAI [facility] DATE/TIME: 06/12/2015 0:27 | | | 06/12/2015 0:27 Portions of this chart were created with [employer] | | | voice recognition software. Occasional wrong-word or | | | | | | sound-alike | | | substitutions may have occurred due to the inherent limitations of | | | voice recognition software. Please contact me if there are any | | | questions regarding any aspects of the above report. | | + + + Culture, MRSA (06/11/2015 10:34 PM PDT) + + + + + + | Component | Value | Ref Range | Performed | Pathologist | | | | | At | Signature | + + + + + + | Culture | Negative for MRSA by | | [facility] | | | | chromogenic agar method | | [facility] | | | | | | MEDICAL | | | | | | CENTER - | | | | | | LABORATORY | | + + + + + + | Culture | 1+ Staphylococcus | | [facility] | | | | coagulase positive | | [facility] | | | | | | MEDICAL | | | | | | CENTER - | | | | | | LABORATORY | | + + + + + + + + | Specimen | + + | Respiratory - Both | | anterior nares (body | | structure) | + + + + + + + | Performing | Address | City/State/Zipcode | Phone Number | | Organization | | | | + + + + + | [facility] | [address] | [place] | [phone] | | [facility] | | [address] | | | - LABORATORY | | | | + + + + + ECG 12 lead (06/11/2015 9:45 PM PDT) + + + + + + | Component | Value | Ref Range | Performed | Pathologist | | | | | At | Signature | + + + + + + | VENTRICULAR | 58 | BPM | [facility] | | | RATE EKG | | | | | + + + + + + | ATRIAL RATE | 58 | BPM | [facility] | | + + + + + + | P-R | 140 | ms | [facility] | | | INTERVAL | | | | | + + + + + + | QRS | 86 | ms | [facility] | | | DURATION | | | | | + + + + + + | Q-T | 514 | ms | [facility] | | | INTERVAL | | | | | + + + + + + | Q-T | 504 | ms | [facility] | | | INTERVAL | | | | | | (CORRECTED) | | | | | + + + + + + | P WAVE AXIS | 32 | degrees | [facility] | | + + + + + + | QRS AXIS | 12 | degrees | [facility] | | + + + + + + | T AXIS | 76 | degrees | [facility] | | + + + + + + | INTERPRETAT | Sinus | | [facility] | | | ION TEXT | bradycardiaNonspecific T | | | | | | wave | | | | | | abnormalityProlonged | | | | | | QTAbnormal ECGNo | | | | | | previous ECGs | | | | | | availableConfirmed by | | | | | | ERWIN MORALES MD ([id number]) | | | | | | on 06/13/2015 7:19:26 AM | | | | + + + + + + + + | Specimen | + + | | + + + + + | Narrative | Performed At | + + + | | | + + + + +---------+ + + | Performing | Address | City/State/Zipcode | Phone Number | | Organization | | | | + +---------+ + + | [facility] | | | | + +---------+ + + Iron and Transferrin (06/11/2015 9:40 PM PDT) + + + + + + | Component | Value | Ref Range | Performed | Pathologist | | | | | At | Signature | + + + + + + | Iron | 50 | 40 - 150 ug/dL | [facility] | | | | | | [facility] | | | | | | [facility] | | | | | | [facility] - | | | | | | LABORATORY | | + + + + + + | TRANSFERRIN | 288.0 | 240.0 - 480.0 | [facility] | | | | | mg/dL | [facility] | | | | | | [facility]ICAL | | | | | | CENTER - | | | | | | LABORATORY | | + + + + + + | TIBC | 403 | 235 - 425 ug/dL | [facility] | | | | | | [facility] | | | | | | [facility] | | | | | | CENTER - | | | | | | LABORATORY | | + + + + + + | % | 12.4 (L) | 20.0 - 55.0 % | [facility] | | | SATURATION | | | [facility] | | | | | | MEDICAL | | | | | | CENTER - | | | | | | LABORATORY | | + + + + + + + + | Specimen | + + | Blood | + + + + + + + | Performing | Address | City/State/Zipcode | Phone Number | | Organization | | | | + + + + + | [facility] | [address] | [place] | [phone] | | [facility] | | [address] | | | - LABORATORY | | | | + + + + + Ferritin (06/11/2015 9:40 PM PDT) + +-------+ + + + | Component | Value | Ref Range | Performed | Pathologist | | | | | At | Signature | + +-------+ + + + | FERRITIN | 5 (L) | 11-<307 ng/mL | [facility] | | | | | | [facility] | | | | | | [facility]ICAL | | | | | | CENTER - | | | | | | LABORATORY | | + +-------+ + + + + + | Specimen | + + | Blood | + + + + + + + | Performing | Address | City/State/Zipcode | Phone Number | | Organization | | | | + + + + + | [facility] | [address] | [place] | [phone] | | [facility] | | [address] | | | - LABORATORY | | | | + + + + + Comprehensive Metabolic Panel (06/11/2015 9:40 PM PDT) + + + + + + | Component | Value | Ref Range | Performed | Pathologist | | | | | At | Signature | + + + + + + | Na | 136 | 136 - 149 | [facility] | | | | | mmol/L | [facility] | | | | | | MEDICAL | | | | | | CENTER - | | | | | | LABORATORY | | + + + + + + | K | 3.4 (L) | 3.5 - 5.1 | [facility] | | | | | mmol/L | [facility] | | | | | | MEDICAL | | | | | | CENTER - | | | | | | LABORATORY | | + + + + + + | Cl | 107 | 98 - 109 mmol/L | [facility] | | | | | | [facility] | | | | | | MEDICAL | | | | | | CENTER - | | | | | | LABORATORY | | + + + + + + | CO2 | 24 | 24 - 31 mmol/L | [facility] | | | | | | [facility] | | | | | | MEDICAL | | | | | | CENTER - | | | | | | LABORATORY | | + + + + + + | Anion Gap | 5 | 3 - 16 mmol/L | [facility] | | | | | | [facility] | | | | | | MEDICAL | | | | | | CENTER - | | | | | | LABORATORY | | + + + + + + | Glucose | 97 | 70 - 109 mg/dL | [facility] | | | | | | [facility] | | | | | | MEDICAL | | | | | | CENTER - | | | | | | LABORATORY | | + + + + + + | BUN | 7 | 7 - 18 mg/dL | [facility] | | | | | | [facility] | | | | | | MEDICAL | | | | | | CENTER - | | | | | | LABORATORY | | + + + + + + | Creatinine | 0.57 (L) | 0.60 - 1.30 | [facility] | | | | | mg/dL | [facility] | | | | | | MEDICAL | | | | | | CENTER - | | | | | | LABORATORY | | + + + + + + | eGFR if not | >60Comment: GLOMERULAR | >=60 | [facility] | | | | FILTRATION | mL/min/1.73m2 | [facility] | | | [place] | RATE,ESTIMATED | | MEDICAL | | | | mL/min/1.53e8Kmtg than | | CENTER - | | | | 60 Chronic kidney | | LABORATORY | | | | disease,if found over a | | | | | | 3-month period.Less than | | | | | | 15 Kidney failureFor | | | | | | | | | | | | Americans,multiply the | | | | | | calculated GFR by 1.21. | | | | | | | | | | + + + + + + | Calcium | 7.3 (L) | 8.3 - 10.5 | [facility] | | | | | mg/dL | [facility] | | | | | | MEDICAL | | | | | | CENTER - | | | | | | LABORATORY | | + + + + + + | Albumin | 3.1 (L) | 3.2 - 5.0 g/dL | [facility] | | | | | | [facility] | | | | | | MEDICAL | | | | | | CENTER - | | | | | | LABORATORY | | + + + + + + | Bilirubin | 0.6Comment: This is an | 0.1 - 1.5 mg/dL | [facility] | | | Total | appended report. These | | [facility] | | | | results have been | | MEDICAL | | | | appended to a previously | | CENTER - | | | | preliminary verified | | LABORATORY | | | | report. | | | | + + + + + + | Total | 5.2 (L) | 6.0 - 7.8 g/dL | [facility] | | | Protein | | | [facility] | | | | | | MEDICAL | | | | | | CENTER - | | | | | | LABORATORY | | + + + + + + | AST | 20Comment: This is an | 10 - 42 U/L | [facility] | | | | appended report. These | | [facility] | | | | results have been | | MEDICAL | | | | appended to a previously | | CENTER - | | | | preliminary verified | | LABORATORY | | | | report. | | | | + + + + + + | ALT | 12Comment: This is an | 6 - 45 U/L | [facility] | | | | appended report. These | | [facility] | | | | results have been | | MEDICAL | | | | appended to a previously | | CENTER - | | | | preliminary verified | | LABORATORY | | | | report. | | | | + + + + + + | Alkaline | 73Comment: This is an | 40 - 110 U/L | [facility] | | | Phosphatase | appended report. These | | [facility] | | | | results have been | | MEDICAL | | | | appended to a previously | | CENTER - | | | | preliminary verified | | LABORATORY | | | | report. | | | | + + + + + + | Globulin | 2.1 | g/dL | [facility] | | | | | | [facility] | | | | | | MEDICAL | | | | | | CENTER - | | | | | | LABORATORY | | + + + + + + | Albumin/Shirin | 1.5 | | [facility] | | | bulin Ratio | | | [facility] | | | | | | MEDICAL | | | | | | CENTER - | | | | | | LABORATORY | | + + + + + + | BUN/Creatin | 12.3 | | [facility] | | | ine Ratio | | | [facility] | | | | | | MEDICAL | | | | | | CENTER - | | | | | | LABORATORY | | + + + + + + + + | Specimen | + + | Blood | + + + + + + + | Performing | Address | City/State/Zipcode | Phone Number | | Organization | | | | + + + + + | [facility] | [address] | [place] | [phone] | | [facility] | | [address] | | | - LABORATORY | | | | + + + + + CBC no Differential (06/11/2015 9:40 PM PDT) + + + + + + | Component | Value | Ref Range | Performed | Pathologist | | | | | At | Signature | + + + + + + | WBC | 6.5 | 4.0 - 11.0 K/uL | [facility] | | | | | | [facility] | | | | | | MEDICAL | | | | | | CENTER - | | | | | | LABORATORY | | + + + + + + | RBC | 3.62 (L) | 3.70 - 5.20 | [facility] | | | | | M/uL | [facility] | | | | | | MEDICAL | | | | | | CENTER - | | | | | | LABORATORY | | + + + + + + | Hemoglobin | 9.7 (L) | 11.5 - 16.0 | [facility] | | | | | g/dL | [facility] | | | | | | MEDICAL | | | | | | CENTER - | | | | | | LABORATORY | | + + + + + + | Hematocrit | 31.3 (L) | 34.0 - 47.0 % | [facility] | | | | | | [facility] | | | | | | MEDICAL | | | | | | CENTER - | | | | | | LABORATORY | | + + + + + + | MCV | 86.5 | 83.0 - 101.0 fL | [facility] | | | | | | [facility] | | | | | | MEDICAL | | | | | | CENTER - | | | | | | LABORATORY | | + + + + + + | MCH | 26.9 (L) | 28.0 - 35.0 pg | [facility] | | | | | | [facility] | | | | | | MEDICAL | | | | | | CENTER - | | | | | | LABORATORY | | + + + + + + | MCHC | 31.1 (L) | 32.0 - 36.0 | [facility] | | | | | g/dL | [facility] | | | | | | MEDICAL | | | | | | CENTER - | | | | | | LABORATORY | | + + + + + + | RDW-CV | 15.4 (H) | <15.0 % | [facility] | | | | | | [facility] | | [facility] | | | MEDICAL | | | | | | CENTER - | | | | | | LABORATORY | | + + + + + + | Platelet | 178 | 140 - 440 K/uL | [facility] | | | Count | | | [facility] | | | | | | MEDICAL | | | | | | CENTER - | | | | | | LABORATORY | | + + + + + + | MPV | 9.3 | fL | [facility] | | | | | | [facility] | | | | | | MEDICAL | | | | | | CENTER - | | | | | | LABORATORY | | + + + + + + + + | Specimen | + + | Blood | + + + + + + + | Performing | Address | City/State/Zipcode | Phone Number | | Organization | | | | + + + + + | [facility] | [address] | [place] | [phone] | | [facility] | | [address] | | | - LABORATORY | | | | + + + + + Troponin I (06/11/2015 9:40 PM PDT) + + + + + + | Component | Value | Ref Range | Performed | Pathologist | | | | | At | Signature | + + + + + + | Troponin I | 0.01Comment: Reference | <0.06 ng/mL | [facility] | | | | Ranges:0.00-0.06 = | | [facility] | | | | NORMAL>0.06 = | | MEDICAL | | | | SUSPICIOUS FOR | | CENTER - | | | | MYOCARDIAL DAMAGE NOTE: | | LABORATORY | | | | Values greater than 0.50 | | | | | | ng/mL have been shown | | | | | | to be strongly | | | | | | associated with acute | | | | | | myocardial infarction. | | | | | | The [employer] | | | | | | [employer]iology (ACC) | | | | | | recommends a decision | | | | | | limit of 0.06 ng/mL for | | | | | | this assay. Results | | | | | | greater than 0.06 can | | | | | | reflect a pre-infarct | | | | | | acute coronary syndrome, | | | | | | but can also reflect | | | | | | myocardial necrosis or | | | | | | injury that is not due | | | | | | to coronary artery | | | | | | disease. Some of these | | | | | | causes are sepsis, | | | | | | hypocolemia, atrial | | | | | | fibrillation, heart | | | | | | failure, pulmonary | | | | | | embolism, myocarditis, | | | | | | myocardial contusion, | | | | | | and renal failure. The | | | | | | diagnosis of myocardial | | | | | | infarction should be | | | | | | based on a combination | | | | | | of the patient's | | | | | | clinical presentation | | | | | | and the clinical | | | | | | laboratory test results | | | | | | (especially serial | | | | | | troponin levels). | | | | + + + + + + + + | Specimen | + + | Blood | + + + + + + + | Performing | Address | City/State/Zipcode | Phone Number | | Organization | | | | + + + + + | [facility] | [address] | [place], [place] | [phone] | | [facility] | | [address] | | | - LABORATORY | | | | + + + + + PTT (06/11/2015 9:40 PM PDT) + +--------+ + + + | Component | Value | Ref Range | Performed | Pathologist | | | | | At | Signature | + +--------+ + + + | aPTT | 44 (H) | 22 - 36 seconds | [facility] | | | | | | [facility] | | | | | | MEDICAL | | | | | | CENTER - | | | | | | LABORATORY | | + +--------+ + + + + + | Specimen | + + | Blood | + + + + + + + | Performing | Address | City/State/Zipcode | Phone Number | | Organization | | | | + + + + + | [facility] | 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 | | (HCC) | + + | Stented coronary artery Postsurgical percutaneous transluminal coronary angioplasty | | status | + + | H/O gastric bypass Bariatric surgery status | + + | Chronic pain syndrome | + + | Anemia Anemia, unspecified | + + | GERD (gastroesophageal reflux disease) Esophageal reflux | + + | Hypokalemia Hypopotassemia | + + documented in this encounter Administered Medications + +--------+ +--------+------+------+ | Medication Order | MAR | Action | Dose | Rate | Site | | | Action | Date | | | | + +--------+ +--------+------+------+ | aluminum & magnesium | Given | 06/12/19 | 30 mLs | | | | hydroxide-simethicone (MAALOX | | 16 4:17 | | | | | PLUS REGULAR STRENGTH) 200-200-20 | | AM PDT | | | | | mg/5 mL suspension 30 mL 30 mL, | | | | | | | Oral, EVERY 4 HOURS PRN, | | | | | | | Indigestion, Starting 06/12/15 | | | | | | | at 0021, Florentin rosales., | | | | | | | Post-op/Phase II | | | | | | + +--------+ +--------+------+------+ +---+---+ | | | +---+---+ + +-------+ +-------+---+---+ | aspirin chewable tablet 81 mg | Given | 06/12/19 | 81 mg | | | | 81 mg, Oral, DAILY, First dose on | | 16 8:19 | | | | | Fri06/12/15 at 0900, Do not give | | AM PDT | | | | | first dose if aspirin already | | | | | | | taken today, Post-op/Phase II | | | | | | + +-------+ +-------+---+---+ +---+---+ | | | +---+---+ + +-------+ +-------+---+---+ | atorvaSTATin (LIPITOR) tablet | Given | 06/12/19 | 80 mg | | | | 80 mg 80 mg, Oral, NIGHTLY, | | 16 1:15 | | | | | First dose on Fri06/12/15 at | | AM PDT | | | | | 0045, Post-op/Phase II | | | | | | + +-------+ +-------+---+---+ +---+---+ | | | +---+---+ + +-------+ +--------+---+---+ | fentaNYL injection PRN, | Given | 06/11/19 | 50 mcg | | | | Starting 06/11/15 at 2303 | | 16 11:03 | | | | | | | PM PDT | | | | + +-------+ +--------+---+---+ +---+---+ | | | +---+---+ + +-------+ +---------+---+---+ | iohexol (OMNIPAQUE 350) 350 | Given | 06/11/19 | 150 mLs | | | | mg/mL injection Intravenous, | | 16 11:47 | | | | | PRN, Starting 06/11/15 at 2347 | | PM PDT | | | | + +-------+ +---------+---+---+ +---+---+ | | | +---+---+ + +-------+ +-------+---+---+ | isosorbide mononitrate (IMDUR) | Given | 06/12/19 | 60 mg | | | | ER tablet 60 mg 60 mg, Oral, | | 16 8:19 | | | | | DAILY, First dose on 06/12/15 | | AM PDT | | | | | at 0900, Tablet may be cut where | | | | | | | scored but do not crush., | | | | | | + +-------+ +-------+---+---+ +---+---+ | | | +---+---+ + +-------+ +-------+---+---+ | lidocaine buffered 1% injection | Given | 06/11/19 | 6 mLs | | | | YASMIN Russo, Calderon Sun | | 16 11:06 | | | | | 06/11/15 at 2306 | | PM PDT | | | | + +-------+ +-------+---+---+ +---+---+ | | | +---+---+ + +-------+ +------+---+---+ | lisinopril (PRINIVIL, ZESTRIL) | Given | 06/12/19 | 5 mg | | | | tablet 5 mg 5 mg, Oral, DAILY, | | 16 8:19 | | | | | First dose on Fri06/12/15 at | | AM PDT | | | | | 0900, Hold for SBP<100, | | | | | | | Post-op/Phase II | | | | | | + +-------+ +------+---+---+ +---+---+ | | | +---+---+ + +---------+ +-----+ +---+ | magnesium sulfate 2 g/50 mL | New Bag | 06/12/19 | 2 g | 25 mL/hr | | | IVPB 2 g 2 g, Intravenous, | | 16 1:07 | | | | | Administer over 120 Minutes, | | AM PDT | | | | | ONCE, Fri06/12/15 at 0015, For 1 | | | | | | | dose, Maximum recommended | | | | | | | infusion rate = 1 gram/hour., | | | | | | + +---------+ +-----+ +---+ +---+---+ | | | +---+---+ + +-------+ +---+---+---+ | miconazole (MICATIN) 2% cream | Given | 06/12/19 | | | | | Topical, 2 TIMES DAILY, First | | 16 9:30 | | | | | dose on 06/12/15 at 0915 | | AM PDT | | | | + +-------+ +---+---+---+ +---+---+ | | | +---+---+ + +-------+ +------+---+---+ | midazolam (VERSED) 1 mg/mL | Given | 06/11/19 | 1 mg | | | | injection PRN, Starting Sun | | 16 11:04 | | | | | 06/11/15 at 2304 | | PM PDT | | | | + +-------+ +------+---+---+ +---+---+ | | | +---+---+ + +-------+ +-------+---+---+ | oxyCODONE (ROXICODONE) tablet | Given | 06/12/19 | 10 mg | | | | 5-10 mg 5-10 mg, Oral, EVERY 4 | | 16 8:32 | | | | | HOURS PRN, Pain, Starting Mon | | AM PDT | | | | | 06/12/15 at 0021, Post-op/Phase II | | | | | | + +-------+ +-------+---+---+ +-------+ +-------+---+---+ | Given | 06/12/19 | 10 mg | | | | | 16 1:15 | | | | | | AM PDT | | | | +-------+ +-------+---+---+ +---+---+ | | | +---+---+ + +-------+ +-------+---+---+ | pantoprazole (PROTONIX) DR | Given | 06/12/19 | 40 mg | | | | tablet 40 mg 40 mg, Oral, DAILY | | 16 1:15 | | | | | BEFORE BREAKFAST, First dose on | | AM PDT | | | | | 06/12/15 at 0045, Do not cut | | | | | | | or crush., | | | | | | + +-------+ +-------+---+---+ +---+---+ | | | +---+---+ + +---------+ +--------+-------+---+ | potassium chloride 40 mEq in | New Bag | 06/12/19 | 40 mEq | 130 | | | sodium chloride 0.45% 500 mL IVPB | | 16 2:51 | | mL/hr | | | 40 mEq, Intravenous, Administer | | AM PDT | | | | | over 4 Hours, ONCE, 06/12/15 | | | | | | | at 0015, For 1 dose | | | | | | + +---------+ +--------+-------+---+ +---+---+ | | | +---+---+ documented in this encounter
--- OUTSIDE RECORDS SUMMARY | ~2019-09-05 | XMS | Encounter Summary ---
Demographics + + + | Address | [address] | | | [place] [address] | + + + | Home Phone | | + + + | Preferred Language | Unknown | + + + | Marital Status | | + + + | Buddhism Affiliation | 1077 | + + + | Race | Unknown | + + + | Ethnic Group | Unknown | + + + Author + + + | Author | [facility] | | | and [place] | + + + | Organization | [facility] | | | and [place] | + + + | Address | Unknown | + + + | Phone | Unavailable | + + + Support + + + + + | Name | Relationship | Address | Phone | + + + + + | Hector Mack | ECON | [address] | | | | | [place] | | | | | [address] | | + + + + + | Najma Xiong | ECON | Unknown | | + + + + + | Hector Mack | ECON | [address] | | | | | [place] | | | | | [address] | | + + + + + Care Team Providers + +------+ + | Care In Store Representative Name | Role | Phone | + +------+ + PCP | Unavailable | + +------+ + Encounter Details +--------+ + + + + | Date | Type | Department | Care Team | Description | +--------+ + + + + | 10/05/ | Hospital | [facility] | Bo Smith | | | 2011 | Encounter | HOSPITAL EMERGENCY | MD [address]c [address] | | | | [address] | [facility]. | | | | | [address] [place] | [place], [place] | | | | | [address] | [address] | | | | | [phone] | [phone] | | | | | | | | +--------+ + + + [...] [facility] | | | | | | [address] | | | | | | | | +--------+---------+ + + + documented as of this encounter Visit Diagnoses Not on filedocumented in this encounter"
--- OUTSIDE RECORDS SUMMARY | ~2019-09-05 | XMS | Encounter Summary ---
Demographics + + + | Address | [address] | | | [place] [address] | + + + | Home Phone [...] + + + | Author | [facility] | + + + | Organization | [facility] | + + + | Address | Unknown | + + + | Phone | Unavailable | + + + Support + + + + + | Name | Relationship | Address | Phone | + + + + + | Hector Mack | ECON | [address] | | | | | [place] | | | | | [address] | | + + + + + Care Team Providers + +------+ + | Care Body Technician Name | Role | Phone | + +------+ + | Tuan Chan MD | PCP | | + +------+ + Reason for Visit AUTH/CERT (Routine) +--------+--------+ + + + + | Status | Reason | Specialty | Diagnoses / | Referred By | Referred To | | | | | Procedures | Contact | Contact | +--------+--------+ + + + + | Closed | | | | | | +--------+--------+ + + + + Encounter Details +--------+ + + + + | Date | Type | Department | Care Team | Description | +--------+ + + + + | 03/12/ | Hospital | [address] | Renato Chow MD | | | 2010 - | Encounter | [address] | | | | | | [facility] | | | | 03/13/ | | [place], [place] | | | | 2010 | | [address] | | | | | | [phone] | | | +--------+ + + + [...] + + + | Blood Pressure | 104/66 | 03/13/2011 7:53 AM | | | | | PST | | + + + + + | Pulse | 99 | 03/13/2011 7:53 AM | | | | | PST | | + + + + + | Temperature | 36.8 C (98.2 F) | 03/13/2011 7:53 AM | | | | | PST | | + + + + + | Respiratory Rate | 18 | 03/13/2011 7:53 AM | | | | | PST | | + + + + + | Oxygen Saturation | 93% | 03/13/2011 7:53 AM | | | | | PST | | + + + + + | Inhaled Oxygen | - | - | | | Concentration | | | | + + + + + | Weight | 86.6 kg (191 lb) | 03/12/2011 8:00 AM | | | | | PST | | + + + + + | Height | 162.6 cm (5' 4") | 03/12/2011 8:00 AM | | | | | PST | | + + + + + | Body Mass Index | 32.79 | 03/12/2011 8:00 AM | | | | | PST | | + + + + + documented in this encounter Discharge Summaries Johann Munoz MD - 03/13/2011 7:35 AM PSTFormatting of this note might be different f rom the original. INPATIENT PHYSICIAN DISCHARGE SUMMARY Attending Physician: Renato Cohw MD PCP: Tuan Chan MD Admission Date: 03/12/2011 Discharge Date: 03/13/2011 Diagnoses Principal Final Diagnosis: Right kidney stones Additional Diagnoses: Chronic pain Acute blood loss anemia Procedures 03/12/2011: Right percutaneous nephrostolithotomy with basket retrieval of stones Reason For Admission: Above planned operation Hospital Course: Patient was admitted to the [facility] for overnight monitoring following the above operation. He stay was uneventful and her Mirza was removed on POD#1. She was discharged to home in stabl e condition on POD#1. She has a right ureteral stent in place and a suture at the access sit e which are planning to be removed by her local urologist, Dr Anne. Current Discharge Medication List START taking these medications Details morphine 30 mg Oral Tablet Take 2 Tabs by mouth two times daily. Qty: 40 Tab, Refills: 0 senna-docusate 8.6-50 mg Oral Tablet Take 1 Tab by mouth two times daily. Qty: 60 Tab, Refills: 2 CONTINUE these medications which have CHANGED or have new prescriptions Details clopidogrel (PLAVIX) 75 mg Oral Tablet Take 1 Tab by mouth once daily. Qty: 1 Tab, Refills: 0 oxyCODONE, immediate release, 5 mg Oral Tablet Take 1-3 Tabs by mouth every four hours as n eeded. Qty: 40 Tab, Refills: 0 CONTINUE these medications which have NOT CHANGED Details acitretin (SORIATANE) 10 mg Oral Capsule Take 1 Cap by mouth once daily. Take with largest meal of the day. Qty: 30, Refills: 1 ALBUTEROL 90 MCG/ACTUATION AEROSOL INHALER inhale 1 puff by inhalation route every 4-6 hour s as needed bacitracin 500 unit/g Topical Ointment by Topical route. To wound daily Qty: 1 tube, Refills: 0 bumetanide 1 mg Oral Tablet 1 tab bid buPROPion SR (WELLBUTRIN SR) 150 mg Oral Tablet Sustained Release 1 tablet as needed chlorhexidine gluconate (HIBICLENS) 4 % Topical Liquid 15 mL by Topical route as needed. Sc rub 3 minutes and rinse thoroughly, wash for an additional 3 minutes. Qty: 1 lg stock, Refills: 2 !! hydrocodone-acetaminophen (NORCO) 10-325 mg Oral Tablet Take 1 Tab by mouth every four h ours as needed Not to exceed 12 tablets per any 24 hour period. (Not to exceed 4000 mg of ac etaminophen from all products per 24 hour period.) Qty: 60, Refills: 0 !! hydrocodone-acetaminophen (NORCO) 10-325 mg Oral Tablet take 1 tablet by oral route ever y 4-6 hours as needed for pain lisinopril 5 mg Oral Tablet take 1 tablet (5 mg) by oral route once daily lovastatin 20 mg Oral Tablet take 1 tablet (20 mg) by oral route once daily with evening me al metaxalone (SKELAXIN) 800 mg Oral Tablet take 1 tablet (800 mg) by oral route 2-3 times per day as needed MULTIVITAMIN OR Take 1 tablet daily. nystatin 100,000 unit/g Topical Cream by Topical route three times daily. Apply liberally t o the affected areas. Qty: 2, Refills: 2 oxycodone CR (OXYCONTIN) 10 mg Oral Tablet Sustained Release 12 hr Take 1 Tab by mouth ever y twelve hours. Qty: 30, Refills: 0 POTASSIUM OR Take 2 tablets daily. tazarotene (TAZORAC) 0.05 % Topical Cream by Topical route once daily in the evening. Qty: 1 lg stock, Refills: 2 TOPROL XL OR None Entered !! - Potential duplicate medications found. Please discuss with provider. STOP taking these medications ciprofloxacin (CIPRO) 500 mg Oral Tablet Comments: Reason for Stopping: MORPHINE OR Comments: Reason for Stopping: Wound Care Ok to shower immediately. Do not soak wound in bath or tub for 3 weeks. Cover with dry gauz e and change as needed. Diet Regular Regular diet- There are no restrictions to your diet. You may eat or drink whatever you pr efer, though healthy food choices are recommended. Activity Activity restrictions: No lifting greater than 15 pounds for 3 weeks. Resume your usual act ivities as tolerated Destination: Destination: Home Condition on Discharge Good Discharge Follow Up- Facility MD to follow Please follow up with your local urologist, Dr Anne in 2 weeks for stent removal and sutu re removal. Feel free to call the [facility] urology clinic as needed for any additional questions . Your Follow-Up Plan Follow-up information has not been specified. Other Discharge Orders and Instructions Please contact Urology clinic ([phone]) during business hours or the Urology resident supervisor electronics processing ([phone]) after business hours for: 1. Redness or drainage from the wound 2. Fever > 101.5 F 3. Blood clots in the urine or inability to urinate 4. Mirza catheter malfunction (if applicable) 5. Leg swelling or shortness of breath OTHER DISCHARGE ORDERS & INSTRUCTIONS You have a stent in place in your ureter. It is a soft flexible plastic drainage tube that has been placed to prevent or relieve obstruction. It has a little curl on each end to hold it in place. - You may have some discomfort, especially when twisting, bending, or urinating. - You have have some occasional blood in your urine which is okay. - You can continue to work normally with the stent inside your body. - It is critical to have your temporary stent removed within 3 months to prevent stone form ation on the stent. PLEASE KEEP YOUR FOLLOW-UP APPOINTMENT. Outstanding labs/studies: stone analysis Discharging Physician: JOHANN MUNOZ MD Attending Physician: Renato Chow MD documented in this enc ounter Discharge Instructions Instructions Elbert Cornelius - 03/13/2011Patient Education Materials: None needed. Please se kelly WARE discharge summary. Additional Instructions: Please see discharge summary. Discharge Nurse: Elbert Cornelius Date: 03/13/2011 Discharge Time: 8:24 AM documented in this encounter Medications at Time [...] +---------+--------+ + documented as of this encounter Progress Johann Montoya MD - 03/13/2011 7:37 AM PSTFormatting of this note might be different f rom the original. Urology Progress Note Hospital Day: 1 Author: JOHANN MUNOZ MD Attending Physician: Renato Chow MD Patient: GERMAINE HEARD [id number] 24H events/Subjective: No events overnight. Pain well controlled. Tolerating PO. Objective: Last Vitals: BP 119/73 | Pulse 58 | Temp 36.7 C (98 F) | RR 18 | Ht 162.6 cm (5' 4") | Wt 86.637 kg (191 lb) | SpO2 97% | BMI 32.79 kg/(m^2) 24 Hour Vital Min/Max: Systolic (24hrs), Av mmHg, Min:101 mmHg, Max:170 mmHg Diastolic (24hrs), Av mmHg, Min:53 mmHg, Max:89 mmHg Pulse Av.4 Min: 53 Max: 74 Temp Av.6 C (97.8 F) Min: 36.2 C (97.2 F) Max: 36.7 C (98.1 F) Resp Av.6 Min: 8 Max: 20 SpO2 Av.3 % Min: 95 % Max: 100 % Date 03/12/11699 - 03/13/11 0659 03/13/11699 - 03/14/11 0659 Shift 1204-7082 9075-0178 2805-5690 Daily Total 7521-3669 2535-9696 7934-0242 Daily Total I N T A K E P.O. 520 1080 1600 I.V. 1550 653 192 8866 5 5 Shift Total 1550 1320 1880 4750 5 5 O U T P U T Urine 800 762 959 2526 200 200 Shift Total 800 291 645 4580 200 200 Medication: acetaminophen (aka TYLENOL) tablet 1,000 mg, 1,000 mg, Oral, Q8H albuterol (aka PROVENTIL, VENTOLIN) 90 mcg/Actuation inhaler 2 Puff, 2 Puff, Inhalation, Q4H PRN bumetanide (aka BUMEX ) tablet 1 mg, 1 mg, Oral, DAILY buPROPion SR (aka WELLBUTRIN-SR, ZYBAN) tablet 150 mg, 150 mg, Oral, DAILY HYDROmorphone (aka DILAUDID) injection 0.2-0.8 mg, 0.2-0.8 mg, Intravenous, Q2H PRN lactated ringers IV, 100 mL/hr, Intravenous, CONTINUOUS lisinopril (aka PRINIVIL) tablet 5 mg, 5 mg, Oral, DAILY metoprolol succinate (aka TOPROL-X L) tablet 25 mg, 25 mg, Oral, DAILY morphine SR (aka MS CONTIN) tablet 60 mg, 60 mg, Oral, Q 12H nystatin (aka MYCOSTATIN) cream, , Topical, TID ondansetron (aka ZOFRAN) injection 4 mg, 4 mg, Intravenous, Q12H PRN oxyCODONE (immediate release) (aka ROXICODONE) tablet 5-20 mg, 5-20 mg, Oral, Q3H PRN oxyCODONE CR (aka OXYCONTIN) tablet 10 mg, 10 mg, Oral, Q12H polyethylene glycol (aka NADJA AX) powder 17 g, 17 g, Oral, DAILY PRN senna-docusate (aka SENOKOT S) 8.6-50 mg 1 Tab, 1 Tab , Oral, BID simethicone chew (aka MYLICON) tablet 80 mg, 80 mg, Oral, TID PRN simvastatin (a ka ZOCOR) tablet 10 mg, 10 mg, Oral, QPM Labs: Recent Labs Basename 03/11/11 1713 NA 145* K 4.6 CL 103 BICARB 27 BUN 14 CR 0.8 GLU 121* CA 8.3* MG -- PO4 -- Recent Labs Basename 03/11/11 1713 WBC See cmnt HB See cmnt HCT See cmnt PLT See cmnt No results found for this basename: AST:3,ALT:3,TBILI:3,AP:3,ALB:3,TP:3 in the last 4320 ho urs CULTURE RESULT (no units) Date Value 03/11/2011 Urine Culture Source...............: Voided Urine sensitivities Culture: Preliminary Report: No growth to date. Culture examined daily. Report will be updated if growth occurs. Further report to follow. Exam: Gen - Alert, conversant, NAD Chest- CTA B. RRR Abd - Soft, nontender, non-distended. Inc - clean, dry, and intact - Mirza in place with pink tinged urine Ext - Warm, well perfused, no edema Assessment and Plan: Germaine Heard is a 65 y.o. female POD#1 s/p right perc, doing well. - D/C Mirza catheter now - Home this morning - Ureteral stent and suture to be removed in [address] Anne. The attending of record for this patient care encounter is Dr Claudine Munoz MD Urology resident owan, Johann Rosen MD - 03/12/2011 1:33 PM PSTUrology interval note: Will admit patient for overnight monitoring to provide adequate pain control and laboratory monitoring. Ezequiel Munoz Urology resident doc umented in this encounter Plan of Treatment + +---------+--------+ + + | Name | Type | Priori | Associated Diagnoses | Date/Time | | | | ty | | | + +---------+--------+ + + | X-RAY NEPHROSTOGRM | Imaging | Routin | | 03/12/2011 10:47 AM | | ANTEGRADE UROGRAP | | e | | PST | + +---------+--------+ + + + +---------+--------+ + + | Name | Type | Priori | Associated Diagnoses | Order Schedule | | | | ty | | | + +---------+--------+ + + | X-RAY NEPHROSTOGRM | Imaging | Routin | | One Time for 1 | | ANTEGRADE UROGRAP | | e | | Occurrences starting | | | | | | 03/12/2011 until | | | | | | 03/12/2011 | + +---------+--------+ + + documented as of this encounter Procedures + +--------+ + + + | Procedure Name | Priori | Date/Time | Associated Diagnosis | Comments | | | ty | | | | + +--------+ + + + | PROCEDURE NOTE | Routin | 05/05/2015 | | Results for this | | | e | 4:24 AM | | procedure are in the | | | | PST | | results section. | + +--------+ + + + | PROCEDURE NOTE | Routin | 05/05/2015 | | Results for this | | | e | 4:24 AM | | procedure are in the | | | | PST | | results section. | + +--------+ + + + | PROCEDURE NOTE | Routin | 05/05/2015 | | Results for this | | | e | 4:22 AM | | procedure are in the | | | | PST | | results section. | + +--------+ + + + | BASIC METABOLIC SET | Routin | 03/13/2011 | | Results for this | | (NA, K, CL, TCO2, | e | 7:46 AM | | procedure are in the | | BUN, CR, GLU, CA) | | PST | | results section. | + +--------+ + + + | CBC ONLY | Routin | 03/13/2011 | | Results for this | | | e | 7:46 AM | | procedure are in the | | | | PST | | results section. | + +--------+ + + + | STONE ANALYSIS | Routin | 03/12/2011 | | Results for this | | | e | 12:42 PM | | procedure are in the | | | | PST | | results section. | + +--------+ + + + | X-RAY PORTABLE CHEST | Urgent | 03/12/2011 | | Results for this | | 1 VIEW | | 11:21 AM | | procedure are in the | | | | PST | | results section. | + +--------+ + + + | ANESTHESIA/SEDATION | | 03/12/2011 | | Results for this | | | | 12:00 AM | | procedure are in the | | | | PST | | results section. | + +--------+ + + + | ANESTHESIA/SEDATION | | 03/12/2011 | | Results for this | | | | 12:00 AM | | procedure are in the | | | | PST | | results section. | + +--------+ + + + documented in this encounter Results PROCEDURE NOTE (05/05/2015 4:24 AM PST) + + | Transcriptions | + + | Other, Faculty - 03/11/2011 5:04 PM PST | + + PROCEDURE NOTE (05/05/2015 4:24 AM PST)PROCEDURE NOTE (05/05/2015 4:22 AM PST) + + | Transcriptions | + + | Other, Faculty - 03/14/2011 12:12 PM PST | + + CBC ONLY (03/13/2011 7:46 AM PST) + + + + + + | Component | Value | Ref Range | Performed | Pathologist | | | | | At | Signature | + + + + + + | WHITE CELL | 6.4 | 4.4 - 11.0 K/cu | [facility] | | | COUNT | | mm | DEPARTMENT | | | | | | OF | | | | | | PATHOLOGY | | + + + + + + | RED CELL | 3.84 (L) | 4.00 - 5.20 | [facility] | | | COUNT | | M/cu mm | DEPARTMENT | | | | | | OF | | | | | | PATHOLOGY | | + + + + + + | HEMOGLOBIN | 11.8 (L) | 12.0 - 16.0 | [facility] | | | | | g/dL | DEPARTMENT | | | | | | OF | | | | | | PATHOLOGY | | + + + + + + | HEMATOCRIT | 35.4 (L) | 36.0 - 46.0 % | [facility] | | | | | | DEPARTMENT | | | | | | OF | | | | | | PATHOLOGY | | + + + + + + | MCV | 92.2 | 80.0 - 96.0 fL | [facility] | | | | | | DEPARTMENT | | | | | | OF | | | | | | PATHOLOGY | | + + + + + + | MCHC | 33.3 (L) | 33.4 - 35.5 | [facility] | | | | | g/dL | DEPARTMENT | | | | | | OF | | | | | | PATHOLOGY | | + + + + + + | RDW | 14.3 | 11.5 - 15.0 % | [facility] | | | | | | DEPARTMENT | | | | | | OF | | | | | | PATHOLOGY | | + + + + + + | PLATELET | 217 | 150 - 400 K/cu | [facility] | | | COUNT | | mm | DEPARTMENT | | | | | | OF | | | | | | PATHOLOGY | | + + + + + + + + | Specimen | + + | Blood - Blood | + + + + + + + | Performing | Address | City/State/Zipcode | Phone Number | | Organization | | | | + + + + + | [facility] | [address] | [place] [address] | | | PATHOLOGY | [address] | | | + + + + + BASIC METABOLIC SET (NA, K, CL, TCO2, BUN, CR, GLU, CA) (03/13/2011 7:46 AM PST) + +---------+ + + + | Component | Value | Ref Range | Performed | Pathologist | | | | | At | Signature | + +---------+ + + + | GLUCOSE, | 91 | 60 - 99 mg/dL | [facility] | | | PLASMA | | | DEPARTMENT | | | (LAB) | | | OF | | | | | | PATHOLOGY | | + +---------+ + + + | BUN, PLASMA | 8 | 6 - 20 mg/dL | [facility] | | | (LAB) | | | DEPARTMENT | | | | | | OF | | | | | | PATHOLOGY | | + +---------+ + + + | CREATININE | 0.79 | 0.60 - 1.10 | [facility] | | | PLASMA | | mg/dL | DEPARTMENT | | | (LAB) | | | OF | | | | | | PATHOLOGY | | + +---------+ + + + | SODIUM, | 138 | 134 - 143 | [facility] | | | PLASMA | | mmol/L | DEPARTMENT | | | (LAB) | | | OF | | | | | | PATHOLOGY | | + +---------+ + + + | POTASSIUM, | 4.7 | 3.4 - 5.0 | [facility] | | | PLASMA | | mmol/L | DEPARTMENT | | | (LAB) | | | OF | | | | | | PATHOLOGY | | + +---------+ + + + | CHLORIDE, | 107 | 97 - 108 mmol/L | [facility] | | | PLASMA | | | DEPARTMENT | | | (LAB) | | | OF | | | | | | PATHOLOGY | | + +---------+ + + + | TOTAL CO2, | 25 | 22 - 29 mmol/L | [facility] | | | PLASMA | | | DEPARTMENT | | | (LAB) | | | OF | | | | | | PATHOLOGY | | + +---------+ + + + | CALCIUM, | 8.1 (L) | 8.6 - 10.2 | [facility] | | | PLASMA | | mg/dL | DEPARTMENT | | | (LAB) | | | OF | | | | | | PATHOLOGY | | + +---------+ + + + | ANION GAP | 6 | 4 - 11 mmol/L | [facility] | | | | | | DEPARTMENT | | | | | | OF | | | | | | PATHOLOGY | | + +---------+ + + + + + | Specimen | + + | Blood - Blood | + + + + + + + | Performing | Address | City/State/Zipcode | Phone Number | | Organization | | | | + + + + + | [facility] | [address] | [place] [address] | | | PATHOLOGY | [address] | | | + + + + + STONE ANALYSIS (03/12/2011 12:42 PM PST) + + + + + + | Component | Value | Ref Range | Performed | Pathologist | | | | | At | Signature | + + + + + + | CALCULI | See NoteComment: | % | [facility] | | | (STONE) | Specimen composed of two | | REG UNIV | | | COMPOSITION | or more distinct colors | | PTH - INTFC | | | | and/orlayers, each of | | | | | | which was analyzed | | | | | | separately. Dark hung | | | | | | core of calculi composed | | | | | | primarily ofcalcium | | | | | | oxalate monohydrate. | | | | | | Light hung shell of | | | | | | calculi composed | | | | | | primarily of:90% calcium | | | | | | oxalate monohydrate, | | | | | | and10% uric | | | | | | acid.Performed by [facility] | | | | | | [facility], | | | | | | | | | | | | [address], | | | | | | [facility] [place] [address] | | | | | | [phone] | | | | | | | | | | | | [email or web address] | | | | | | Alma Odonnell MD - | | | | | | Lab. Director | | | | + + + + + + | CALCULI | See NoteComment: | None Given mg | [facility] | | | (STONE) | Specimen mass: 2.08 | | REG UNIV | | | WEIGHT | gramsTEST INFORMATION: | | PTH - INTFC | | | | Calculi (Stone) analysis | | | | | | Calculi are the | | | | | | products of | | | | | | physiological processes | | | | | | thatyield crystalline | | | | | | compounds in a matrix of | | | | | | biologicalcompounds and | | | | | | blood. Matrix | | | | | | components are not | | | | | | reported.The clinically | | | | | | significant crystalline | | | | | | componentsidentified in | | | | | | calculi specimens are | | | | | | reported. | | | | + + + + + + | CALCULI | Right [place], [place] | | [facility] | | | (STONE) | Sample. | | REG UNIV | | | SOURCE | | | PTH - INTFC | | + + + + + + | CALCULI | Numerous | | [facility] | | | (STONE) | | | REG UNIV | | | NUMBER | | | PTH - INTFC | | + + + + + + | CALCULI | Various | mm | [facility] | | | (STONE) | | | REG UNIV | | | SIZE | | | PTH - INTFC | | + + + + + + | CALCULI | See NoteComment: | mm | [facility] | | | (STONE) | Specimen consists of | | REG UNIV | | | DESCRIPTION | numerous, various sized, | | PTH - INTFC | | | | light hung/dark | | | | | | hung,irregular calculi. | | | | + + + + + + + + | Specimen | + + | | + + + + + + + | Performing | Address | City/State/Zipcode | Phone Number | | Organization | | | | + + + + + | [facility] | [address] | [place], [place] | | | UNIV PTH - INTFC | | [phone] | | + + + + + X-RAY PORTABLE CHEST 1 VIEW (03/12/2011 11:21 AM PST) + + + + + + | Component | Value | Ref Range | Performed | Pathologist | | | | | At | Signature | + + + + + + | X-RAY | EXAM: AP CHEST. | | | | | PORTABLE | COMPARISON: 02/05/06 | | | | | CHEST 1 | FINDINGS: Changes of | | | | | VIEW | prior sternotomy and | | | | | | CABG as before. | | | | | | Lungvolumes are low. | | | | | | There is minimal | | | | | | scattered subsegmental | | | | | | atelectasisbilaterally. | | | | | | There is no | | | | | | pneumothorax. No | | | | | | definite pleural | | | | | | effusion is evident. | | | | | | IMPRESSION: 1.Low lung | | | | | | volumes with minimal | | | | | | scattered atelectasis | | | | | | bilaterally. Attending | | | | | | Radiologists: Stu | | | | | | Chey YoAuthor: | | | | | | Stu Yo M.D. I | | | | | | have personally viewed | | | | | | this procedure/exam, | | | | | | reviewed this report,and | | | | | | made changes to it | | | | | | where appropriate. | | | | | | Final/Electronically | | | | | | mar / Stu | | | | | | Srinath 03/12/2011 13:22 | | | | | | PM | | | | + + + + + + + + | Specimen | + + | | + + + +---------+ + + | Performing | Address | City/State/Zipcode | Phone Number | | Organization | | | | + +---------+ + + | [facility] | | | | | RADIOLOGY | | | | + +---------+ + + ANESTHESIA/SEDATION (03/12/2011 12:00 AM PST) + + + | Narrative | Performed At | + + + | | | + + + + + | Transcriptions | + + | Kassandra Frazier - 03/12/2011 2:05 PM PST | + + ANESTHESIA/SEDATION (03/12/2011 12:00 AM PST) + + + | Narrative | Performed At | + + + | | | + + + + + | Transcriptions | + + | Kassandra Frazier - 03/12/2011 11:05 AM PST | + + documented in this encounter Visit Diagnoses + + | Diagnosis | + + | Obesity Obesity, unspecified | + + documented in this encounter Administered Medications + +--------+ + +------+------+ | Medication Order | MAR | Action | Dose | Rate | Site | | | Action | Date | | | | + +--------+ + +------+------+ | acetaminophen (aka TYLENOL) | Given | 03/13/20 | 1,000 mg | | | | tablet 1,000 mg 1,000 mg, oral, | | 11 8:13 | | | | | EVERY 8 HOURS, First dose on Fri | | AM PST | | | | | 03/12/11 at 1600, Until | | | | | | | Discontinued | | | | | | + +--------+ + +------+------+ +-------+ + +---+---+ | Given | 03/12/20 | 1,000 mg | | | | | 11 11:11 | | | | | | PM PST | | | | +-------+ + +---+---+ | Given | 03/12/20 | 1,000 mg | | | | | 11 5:21 | | | | | | PM PST | | | | +-------+ + +---+---+ +---+---+ | | | +---+---+ + +-------+ +------+---+---+ | bumetanide (aka BUMEX) tablet 1 | Given | 03/13/20 | 1 mg | | | | mg 1 mg, oral, DAILY, First | | 11 8:13 | | | | | dose on Fri03/13/11 at 0900, | | AM PST | | | | | Until Discontinued | | | | | | + +-------+ +------+---+---+ +---+---+ | | | +---+---+ + +-------+ +--------+---+---+ | buPROPion SR (aka | Given | 03/13/20 | 150 mg | | | | WELLBUTRIN-SR, ZYBAN) tablet 150 | | 11 8:13 | | | | | mg 150 mg, oral, DAILY, First | | AM PST | | | | | dose on Fri03/13/11 at 0900, | | | | | | | Until Discontinued | | | | | | + +-------+ +--------+---+---+ +---+---+ | | | +---+---+ + +---------+ +--------+--------+---+ | ciprofloxacin (aka CIPRO) IV | New Bag | 03/12/20 | 400 mg | mL/hr | | | 400 mg 400 mg, intravenous, | | 11 8:25 | | | | | PREPROCEDURE ONCE, 1 dose, | | AM PST | | | | | Starting Fri03/12/11 at 0815, | | | | | | | Until Fri03/12/11 at 0825 | | | | | | + +---------+ +--------+--------+---+ + +---+ | | | + +---+ | ciprofloxacin (aka CIPRO) IV 1 | | | dose, Starting Fri03/12/11 at | | | 0823, Until Fri03/12/11 at 0825 | | + +---+ | | | + +---+ + +---------+ +---------+--------+---+ | fentaNYL citrate (PF) (aka | New Bag | 03/12/20 | 100 mcg | mL/hr | | | SUBLIMAZE) injection 50 mcg 50 | | 11 1:02 | | | | | mcg, intravenous, POSTPROCEDURE | | PM PST | | | | | PRN, Starting 03/12/11 at | | | | | | | 1024, Until Fri03/12/11 at 1507, | | | | | | | moderate pain | | | | | | + +---------+ +---------+--------+---+ +---------+ +---------+--------+---+ | New Bag | 03/12/20 | 100 mcg | mL/hr | | | | 11 1:01 | | | | | | PM PST | | | | +---------+ +---------+--------+---+ + +---+ | | | + +---+ | fentaNYL citrate (PF) (aka | | | SUBLIMAZE) injection 1 dose, | | | Starting 03/12/11 at 1107, | | | Until e 03/12/11 at 1302 | | + +---+ | | | + +---+ + +---------+ +--------+--------+---+ | HYDROmorphone (aka DILAUDID) | New Bag | 03/13/20 | 0.8 mg | mL/hr | | | injection 0.2-0.8 mg 0.2-0.8 mg, | | 11 2:58 | | | | | intravenous, EVERY 2 HOURS | | AM PST | | | | | NEEDED, Starting 03/12/11 at | | | | | | | 1101, Until 03/13/11 at 1535, | | | | | | | severe pain | | | | | | + +---------+ +--------+--------+---+ +---------+ +------+--------+---+ | New Bag | 03/12/20 | 1 mg | mL/hr | | | | 11 2:08 | | | | | | PM PST | | | | +---------+ +------+--------+---+ + +---+ | | | + +---+ | HYDROmorphone (aka DILAUDID) | | | injection 1 dose, Starting Tue | | | 03/12/11 at 1108, Until Fri | | | 03/12/11 at 1408 | | + +---+ | | | + +---+ + +-------+ +------+---+---+ | lisinopril (aka PRINIVIL) | Given | 03/13/20 | 5 mg | | | | tablet 5 mg 5 mg, oral, DAILY, | | 11 8:13 | | | | | First dose on Fri03/12/11 at | | AM PST | | | | | 1545, Until Discontinued | | | | | | + +-------+ +------+---+---+ +-------+ +------+---+---+ | Given | 03/12/20 | 5 mg | | | | | 11 5:10 | | | | | | PM PST | | | | +-------+ +------+---+---+ +---+---+ | | | +---+---+ + +-------+ +-------+---+---+ | metoprolol succinate (aka | Given | 03/13/20 | 25 mg | | | | TOPROL-XL) tablet 25 mg 25 mg, | | 11 8:13 | | | | | oral, DAILY, First dose on Fri | | AM PST | | | | | 03/13/11 at 0900, Until | | | | | | | Discontinued | | | | | | + +-------+ +-------+---+---+ +---+---+ | | | +---+---+ + +-------+ +-------+---+---+ | morphine SR (aka MS CONTIN) | Given | 03/13/20 | 60 mg | | | | tablet 60 mg 60 mg, oral, EVERY | | 11 8:13 | | | | | 12 HOURS, First dose on Fri | | AM PST | | | | | 03/12/11 at 2100, Until | | | | | | | Discontinued | | | | | | + +-------+ +-------+---+---+ +-------+ +-------+---+---+ | Given | 03/12/20 | 60 mg | | | | | 11 8:59 | | | | | | PM PST | | | | +-------+ +-------+---+---+ +---+---+ | | | +---+---+ + +-------+ +---+---+---+ | nystatin (aka MYCOSTATIN) cream | Given | 03/13/20 | | | | | topical, THREE TIMES DAILY, | | 11 8:13 | | | | | First dose on Fri03/12/11 at | | AM PST | | | | | 1600, Until Discontinued | | | | | | + +-------+ +---+---+---+ + + +---+---+---+ | Given | 03/12/20 | | | | | | 11 9:08 | | | | | | PM PST | | | | + + +---+---+---+ | Pt Administered | 03/12/20 | | | | | | 11 5:19 | | | | | | PM PST | | | | + + +---+---+---+ +---+---+ | | | +---+---+ + +-------+ +-------+---+---+ | oxyCODONE (immediate release) | Given | 03/13/20 | 20 mg | | | | (aka ROXICODONE) tablet 5-20 mg | | 11 6:04 | | | | | 5-20 mg, oral, EVERY 3 HOURS | | AM PST | | | | | NEEDED, Starting Fri03/12/11 at | | | | | | | 1053, Until Fri03/13/11 at 1535, | | | | | | | severe pain | | | | | | + +-------+ +-------+---+---+ +-------+ +-------+---+---+ | Given | 03/13/20 | 20 mg | | | | | 11 2:58 | | | | | | AM PST | | | | +-------+ +-------+---+---+ +---+---+ | | | +---+---+ + +-------+ +-------+---+---+ | oxyCODONE CR (aka OXYCONTIN) | Given | 03/12/20 | 10 mg | | | | tablet 10 mg 10 mg, oral, EVERY | | 11 11:10 | | | | | 12 HOURS, First dose on Fri | | PM PST | | | | | 03/12/11 at 2300, Until | | | | | | | Discontinued | | | | | | + +-------+ +-------+---+---+ +---+---+ | | | +---+---+ + +-------+ + +---+---+ | senna-docusate (aka SENOKOT S) | Given | 03/13/20 | 1 tablet | | | | 8.6-50 mg 1 Tab 1 tablet, oral, | | 11 8:13 | | | | | TWICE DAILY, First dose on Fri | | AM PST | | | | | 03/12/11 at 2100, Until | | | | | | | Discontinued | | | | | | + +-------+ + +---+---+ +-------+ + +---+---+ | Given | 03/12/20 | 1 tablet | | | | | 11 8:59 | | | | | | PM PST | | | | +-------+ + +---+---+ +---+---+ | | | +---+---+ + +-------+ +-------+---+---+ | simvastatin (aka ZOCOR) tablet | Given | 03/12/20 | 10 mg | | | | 10 mg 10 mg, oral, EVERY | | 11 8:59 | | | | | EVENING, First dose on Fri | | PM PST | | | | | 03/12/11 at 2100, Until | | | | | | | Discontinued | | | | | | + +-------+ +-------+---+---+ +---+---+ | | | +---+---+ documented in this encounter
--- OUTSIDE RECORDS SUMMARY | ~2019-09-05 | XMS | Encounter Summary ---
Demographics + + + | Address | [address] | | | [place] [address] | + + + | Home Phone | | + + + | Preferred Language | Unknown | + + + | Marital Status | | + + + | Zoroastrianism Affiliation | PRO | + + + | Race | White | + + + | Ethnic Group | Not or | + + + Author + + + | Author | [facility] | + + + | Organization | [facility] | + + + | Address | Unknown | + + + | Phone | Unavailable | + + + Support + + + + + | Name | Relationship | Address | Phone | + + + + + | Hector Mack | ECON | [phone] | | | | | [place] | | | | | [phone] | | + + + + + Care Team Providers + +------+ + | Care Painter Helper Name | Role | Phone | + [...] 2006 | Registratio | PARMINDER Hernandez | [phone] | | | | [address] | [address] Mailcode: [id number] | | | | | | [place], [place] | | | | | | [address] | | | | | | [phone] | | | +--------+ + + + [...]
--- OUTSIDE RECORDS SUMMARY | ~2019-09-05 | XMS | Encounter Summary ---
Demographics + + + | Address | [address] | | | [place] [address] | + + + | Home Phone | | + + + | Preferred Language | Unknown | + + + | Marital Status | | + + + | Jain Affiliation | [id number] | + + + | Race | Unknown | + + + | Ethnic Group | Unknown | + + + Author + + + | Author | [facility] | | | and [place] | + + + | Organization | [facility] | | | and [place] [...] [place] | | | | | [address] | | + + + + + | Najma Xiong | ECON | Unknown | | + + + + + | Hector Mack | ECON | [address] | | | | | [place] | | | | | [address] | | + + + + + Care Team Providers + +------+ + | Care Stone Unloader Name | Role | Phone | + +------+ + PCP | Unavailable | + +------+ + Encounter Details +--------+ + + + + | Date | Type | Department | Care Team | Description | +--------+ + + + + | 09/04/ | Hospital | [facility] | Mathew Sofia | Chest pain; NSTEMI | | 2012 - | Encounter | [facility] | MD Judy [address] | (non-ST elevated | | | | CARE FLOOR [address] | myocardial | | 09/06/ | | [address] | [place] [address] | infarction) (HCC); | | 2012 | | [place], [place] | [phone] | CAD (coronary artery | | | | [id number] | | disease); HTN | | | | [phone] | | (hypertension) | +--------+ + + + + Social [...] documented as of this encounter Discharge Summaries Augustine Trejo MD - 09/06/2012 2:37 PM PDTFormatting of this note might be different fr om the original. Discharge Summaries by Augustine Trejo MD at 09/06/12 1437 Author: Augusitne Trejo MD Service: (none) Author Type: Physician Filed: 09/07/12 8542 Date of Service: 09/06/12 143 Status: Signed Manager Of International: Augustine Trejo MD (Physician) [facility]: Hospitalist Discharge Summary Date of Admission: 09/04/2012 Date of Discharge 09/06/12 Discharge Provider: AUGUSTINE TREJO MD Treatment Team: Admitting Provider: Mathew Sofia MD Discharge Diagnoses: Principal Problem: *NSTEMI (non-ST elevated myocardial infarction) Active Problems: HTN (hypertension) CAD (coronary artery disease) Resolved Problems: * No resolved hospital problems. * BRIEF HISTORY OF PRESENTATION: Germaine Ye is a 66 y.o. female With Known CAD/distant CABG and distant PCI /stent. Admitted for chest pain Pt is now s/p cath/PCI/stent RCA*2. LVEF 60%. RCA vein graft occluded. CASAS patent, "Y-gra ft" to D1/OM1 patent. Previous stent in LCx patent. By Dr. Donya Rogers this AM UTI + afebrile 1. Non-ST elevation ID evident - cont ASA and plavix and statin 2. Hypertension. wel controlle don metoprolol and lasix 3. 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 4. History of diabetes but she lost significant amount of weight and she has not been takin g any diabetes medication for the last 10 years. 5. History of morbid obesity status post bariatric surgery. She lost more than 300 pounds a nd currently she is just overweight. 6. Chronic opiate user - reinstate meds 7 UTI - finish course of abx Past Medical History Diagnosis Date Stroke CAD (coronary artery disease) Hypertension Type II diabetes mellitus Kidney disease COPD (chronic obstructive pulmonary disease) ID (myocardial infarction) Past Surgical History Procedure Date Cardiac catheterization Heart stent Appendectomy Cholecystectomy Tonsillectomy Unlisted procedure arthroscopy Coronary artery bypass graft Allergies Allergen Reactions Codeine Other (See Comments) Unknown Prescriptions prior to admission Medication Sig Dispense Refill albuterol, VENT, (PROVENTIL HFA;VENTOLIN HFA) 108 (90 BASE) MCG/ACT inhaler Inhale 2 pu ffs into the lungs every 4 (four) hours as needed. Indications: Chronic Obstructive Lung Dis ease buPROPion (WELLBUTRIN) 75 MG tablet Take 75 mg by mouth once. furosemide (LASIX) 20 MG tablet Take 20 mg by mouth 2 (two) times daily. HYDROcodone-acetaminophen (NORCO) 10-325 MG per tablet Take 1 tablet by mouth every 6 ( six) hours as needed. morphine (MS CONTIN) 15 MG 12 hr tablet Take 60 mg by mouth 2 (two) times daily. potassium chloride (K-DUR) 10 MEQ tablet Take 20 mEq by mouth 2 (two) times daily. DISCHARGE EXAM Vital Signs: BP 156/74 | Pulse 60 | Temp(Src) 98 F (36.7 C) (Oral) | Resp 16 | Ht 1.626 m (5' 4") | Wt 83.915 kg (185 lb) | BMI 31.76 kg/m2 | SpO2 97% | ? No Physical Exam Physical Exam General Appearance: Drowsy,in no respiratory distress, appears stated age Head: Normocephalic, without obvious abnormality, atraumatic Eyes: PERRL, conjunctiva/corneas clear, EOM's intact, fundi benign, both eyes Ears: Normal TM's and external ear canals, both ears Nose: Nares normal, septum midline, mucosa normal, no drainage or sinus tenderness Throat: Lips, mucosa, and tongue normal; teeth and gums normal Neck: Supple, symmetrical, trachea midline, no adenopathy; thyroid: No enlargement/tenderness/nodules; no carotid bruit or JVD Lungs: Clear to auscultation bilaterally, respirations unlabored Chest wall: No tenderness or deformity Heart: Regular rate and rhythm, S1 and S2 normal, no murmur, rub or gallop Abdomen: Soft, non-tender, bowel sounds active all four quadrants, no masses, no organomegaly Extremities: Extremities normal, atraumatic, no cyanosis or edema Pulses: 2+ and symmetric all extremities Skin: Skin color, texture, turgor normal, no rashes or lesions DATA CBC: Lab Results Component Value Date WBC 8.1 09/06/2012 RBC 3.62* 09/06/2012 HGB 10.6* 09/06/2012 HCT 32.1* 09/06/2012 MCV 88.8 09/06/2012 MCH 29.4 09/06/2012 MCHC 33.1 09/06/2012 RDW 45.9 09/06/2012 PLT 191 09/06/2012 MPV 9.5 09/06/2012 DIFFTYPE AUTOMATED 09/06/2012 CMP: Lab Results Component Value Date NA 142 09/06/2012 K 3.9 09/06/2012 CL 108 09/06/2012 CO2 28 09/06/2012 ANIONGAP 10 09/06/2012 GLUF 118* 09/06/2012 BUN 9 09/06/2012 CREATININE 0.92 09/06/2012 BCR 10 09/06/2012 CA 7.6* 09/06/2012 PROT 5.9* 09/06/2012 ALB 2.8* 09/06/2012 GLOB 3.1 09/06/2012 BILITOT 0.4 09/06/2012 ALP 95 09/06/2012 AST 87* 09/06/2012 ALT 35 09/06/2012 EGFR >60 09/06/2012 Disposition: Home Condition: Stable Code Status: Full Code Discharge Instructions Basic metabolic panel Standing Status: Future Standing Exp. Date: 09/06/13 Follow up: Tuan Chan MD [address] [facility] [address] Schedule an appointment as soon as possible for a visit Mango Naqvi, [address] [place] [address] Schedule an appointment as soon as possible for a visit Current Discharge Medication List START taking these medications Details aspirin 81 MG EC tablet Take 1 tablet by mouth daily with breakfast. Qty: 30 tablet, Refills: 1 atorvastatin (LIPITOR) 80 MG tablet Take 1 tablet by mouth daily. Qty: 30 tablet, Refills: 1 ciprofloxacin (CIPRO) 500 MG tablet Take 1 tablet by mouth Two times daily-Quinalones. Qty: 5 tablet, Refills: 0 clopidogrel (PLAVIX) 75 MG tablet Take 1 tablet by mouth daily. Qty: 30 tablet, Refills: 2 metoprolol (TOPROL-XL) 25 MG 24 hr tablet Take 1 tablet by mouth daily. Qty: 30 tablet, Refills: 1 nitroGLYCERIN (NITROSTAT) 0.[address] 1 tablet under the tongue every 5 (five) m inutes as needed for Chest pain. Qty: 90 tablet, Refills: 1 nystatin (MYCOSTATIN) powder Apply topically 2 (two) times daily. Qty: 15 g, Refills: 0 CONTINUE these medications which have NOT CHANGED Details albuterol, VENT, (PROVENTIL HFA;VENTOLIN HFA) 108 (90 BASE) MCG/ACT inhaler Inhale 2 puffs into the lungs every 4 (four) hours as needed. Indications: Chronic Obstructive Lung Disease buPROPion (WELLBUTRIN) 75 MG tablet Take 75 mg by mouth once. furosemide (LASIX) 20 MG tablet Take 20 mg by mouth 2 (two) times daily. HYDROcodone-acetaminophen (NORCO) 10-325 MG per tablet Take 1 tablet by mouth every 6 (six) hours as needed. morphine (MS CONTIN) 15 MG 12 hr tablet Take 60 mg by mouth 2 (two) times daily. potassium chloride (K-DUR) 10 MEQ tablet Take 20 mEq by mouth 2 (two) times daily. Discharge took 35 minutes, to include final examination, discussion of admission, and prep aration of prescriptions, instructions for on-going care, follow-up and documentation of dis charge summary. AUGUSTINE TREJO MD 09/06/2012 documented in this encounter Progress Notes Conversion Transaction, Provider Unknown - 09/06/2012 5:13 PM PDTFormatting of this note m ight be different from the original. Progress Notes by Francesco Reyna RN at 09/06/12 342 Author: Francesco Reyna RN Service: (none) Author Type: Registered Nurse Filed: 09/06/12 7659 Date of Service: 09/06/121712 Status: Signed Manager Of International: Francesco Reyna RN (Registered Nurse) Pt discharged home. Stable. Scripts given. Verbal and written discharge instructions given. Pt states no pain at time of discharge. FRANCESCO REYNARN Augustine Cintron MD - 09/05/2012 2:21 PM PDT Progress Notes by Augustine Trejo MD at 09/05/12 1421 Author: Augustine Trejo MD Service: (none) Author Type: Physician Filed: 09/05/12 1508 Date of Service: 09/05/121420 Status: Signed Manager Of International: Augustine Trejo MD (Physician) [facility]: Hospitalist Progress Note Hospital Day: LOS: 1 day Post-Op Day: * No surgery found * SUBJECTIVE Events Overnight: Just came back from cath, stable VS, pretty sleep after benadryl ad ministration Scheduled Medications aspirin 162 mg Oral 30 Min Pre-Op aspirin 81 mg Oral Daily with breakfast atorvastatin 80 mg Oral Daily bivalirudin 0.75 mg/kg Intravenous Bolus from Bag clopidogrel 600 mg Oral Once clopidogrel 75 mg Oral Daily diphenhydrAMINE 50 mg Oral 30 Min Pre-Op famotidine 20 mg Oral 30 Min Pre-Op furosemide 20 mg Oral BID heparin (porcine) metoprolol 25 mg Oral Daily morphine 6 mg Intravenous Once nitroGLYCERIN Continuous Infusions nitroGLYCERIN in D5W 200 mcg/mL 30 mcg/min (09/05/12 0433) sodium chloride 150 mL/hr (09/05/12 1417) sodium chloride Stopped (09/05/12 1418) DISCONTD: bivalirudin DISCONTD: heparin in D5W 50 units/mL 10.906 Units/kg/hr (09/05/12 0708) PRN Medications acetaminophen, aluminum-magnesium hydroxide-simethicone, enalaprilat, fentaNYL, fentaNYL, h ydrALAZINE, HYDROmorphone, iopamidol, LORazepam, LORazepam, nitroGLYCERIN, ondansetron, onda nsetron, polyethylene glycol, zolpidem, DISCONTD: acetaminophen, DISCONTD: acetaminophen, DI SCONTD: fentaNYL, DISCONTD: fentaNYL, DISCONTD: ondansetron, DISCONTD: ondansetron, DISCONTD : polyethylene glycol, DISCONTD: zolpidem OBJECTIVE Vital Signs: BP 130/66 | Pulse 62 | Temp(Src) 97.9 F (36.6 C) (Oral) | Resp 18 | Ht 1.626 m (5' 4") | Wt 83.915 kg (185 lb) | BMI 31.76 kg/m2 | SpO2 99% | ? No Temp: [89.8 F (32.1 C)-98.4 F (36.9 C)] 97.9 F (36.6 C) (09/05 813) BP: (98-175)/(58-84) 130/66 mmHg (09/05 1299) Heart Rate: [56-65] 62 (09/05 1299) Resp: [14-18] 18 (09/05 813) SpO2: [92 %-100 %] 99 % (09/05 1299) Height: [162.6 cm (5' 4")] 162.6 cm (5' 4") (09/04 2230) Weight: [83.915 kg (185 lb)] 83.915 kg (185 lb) (09/04 2230) BMI (Calculated): [31.8] 31.8 (09/04 2230) Physical Exam General Appearance: Drowsy,in no respiratory distress, appears stated age Head: Normocephalic, without obvious abnormality, atraumatic Eyes: PERRL, conjunctiva/corneas clear, EOM's intact, fundi benign, both eyes Ears: Normal TM's and external ear canals, both ears Nose: Nares normal, septum midline, mucosa normal, no drainage or sinus tenderness Throat: Lips, mucosa, and tongue normal; teeth and gums normal Neck: Supple, symmetrical, trachea midline, no adenopathy; thyroid: No enlargement/tenderness/nodules; no carotid bruit or JVD Lungs: Clear to auscultation bilaterally, respirations unlabored Chest wall: No tenderness or deformity Heart: Regular rate and rhythm, S1 and S2 normal, no murmur, rub or gallop Abdomen: Soft, non-tender, bowel sounds active all four quadrants, no masses, no organomegaly Extremities: Extremities normal, atraumatic, no cyanosis or edema Pulses: 2+ and symmetric all extremities Skin: Skin color, texture, turgor normal, no rashes or lesions DATA CBC: Lab Results Component Value Date WBC 8.6 09/04/2012 RBC 3.72 09/04/2012 HGB 11.1* 09/04/2012 HCT 32.9* 09/04/2012 MCV 88.5 09/04/2012 MCH 29.8 09/04/2012 MCHC 33.6 09/04/2012 RDW 45.1 09/04/2012 PLT 214 09/04/2012 MPV 10.0 09/04/2012 CMP: No results found for this basename: NA, K, CL, CO2, ANIONGAP, GLUF, BUN, CREATININE, BCR, C A, PROT, ALB, GLOB, AGRATIO, BILITOT, ALP, AST, ALT, EGFR PROBLEM LIST Principal Problem: *NSTEMI (non-ST elevated myocardial infarction) Active Problems: HTN (hypertension) CAD (coronary artery disease) ASSESSMENT & PLAN 1. Non-ST elevation ID evident - Dr. Naqvi on consult and s/p cath, await report and recomme ndations on ASA and plavix and statin 2. Hypertension. wel controlle don metoprolol and lasix 3. 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 4. History of diabetes but she lost significant amount of weight and she has not been takin g any diabetes medication for the last 10 years. 5. History of morbid obesity status post bariatric surgery. She lost more than 300 pounds a nd currently she is just overweight. 6. Chronic opiate user - reinstate meds, hold for sedation Disposition: inpt Code Status: Full Code AUGUSTINE TREJO MD 09/05/2012 onversion Transact ion, Provider Unknown - 09/05/2012 9:03 AM PDTFormatting of this note might be different fr om the original. Progress Notes by Deedee Cisneros RPH at 09/05/12902 Author: Deedee Cisneros RPH Service: (none) Author Type: Pharmacist Filed: 09/05/12902 Date of Service: 09/05/12902 Status: Signed Manager Of International: Deedee Cisneros RPH (Pharmacist) Renal Dosing Monitoring: Germaine Ye 66 y.o. female Pharmacy dosing for renal function per Dr. Sofia Medication(s): Plan per protocol: Medication / Dose: unable to calculate CrCl without labs Will follow-up Pharmacy will continue monitoring patient for appropriate dosing per renal function. 09/05/2012 8:56 AM Pharmacist: DEEDEE CISNEROS Simeon fallon in this encounter Plan of Treatment +--------+---------+ + + + | Date | Type | Specialty | Care Team | Description | +--------+---------+ + + + | 11/25/ | Office | Neurology | Duarte Moon MD | | | 2020 | Visit | | [address] | | | | | | [place] | | | | | | [address] | | | | | | | | +--------+---------+ + + + documented as of this encounter Procedures + +--------+ + + + | Procedure Name | Priori | Date/Time | Associated Diagnosis | Comments | | | ty | | | | + +--------+ + + + | CULTURE, URINE | Timed | 09/06/2012 | | Results for this | | | | 8:14 AM | | procedure are in the | | | | PDT | | results section. | + +--------+ + + + | ECG 12 LEAD | Routin | 09/06/2012 | | Results for this | | | e | 5:55 AM | | procedure are in the | | | | PDT | | results section. | + +--------+ + + + | ECG 12 LEAD | Routin | 09/05/2012 | | Results for this | | | e | 12:41 PM | | procedure are in the | | | | PDT | | results section. | + +--------+ + + + | CV CARDIAC PROCEDURE | Routin | 09/05/2012 | | Results for this | | | e | 11:43 AM | | procedure are in the | | | | PDT | | results section. | + +--------+ + + + | CV CARDIAC PROCEDURE | Routin | 09/05/2012 | | Results for this | | | e | 11:43 AM | | procedure are in the | | | | PDT | | results section. | + +--------+ + + + | ECG 12 LEAD | Routin | 09/05/2012 | | Results for this | | | e | 3:10 AM | | procedure are in the | | | | PDT | | results section. | + +--------+ + + + | ECG 12 LEAD | Routin | 09/04/2012 | | Results for this | | | e | 10:42 PM | | procedure are in the | | | | PDT | | results section. | + +--------+ + + + documented in this encounter Results Culture, Urine (09/06/2012 8:14 AM PDT) + + | Specimen | + + | Urine specimen | | (specimen) | + + + + + | Narrative | Performed At | + + + | Specimen Description URINE,CLEAN CATCH | EXTERNAL LAB | | Testing performed at | | | [facility] [place];[place] [address] CULTURE | | | >100,000 CFU/ML MIXED GRAM NEGATIVE KRISTEN | | | NO FURTHER WORKUP | | | Testing performed at [facility], | | | [address] [place] [address] REPORT STATUS | | | 09/07/2012 FINAL | | + + + + +---------+ + + | Performing | Address | City/State/Zipcode | Phone Number | | Organization | | | | + +---------+ + + | EXTERNAL LAB | | | | + +---------+ + + ECG 12 lead (09/06/2012 5:55 AM PDT) + + + + + + | Component | Value | Ref Range | Performed | Pathologist | | | | | At | Signature | + + + + + + | DIAGNOSIS: | Normal sinus | | EXTERNAL | | | | rhythmNonspecific T wave | | LAB | | | | abnormalityAbnormal | | | | | | ECGWhen compared with | | | | | | ECG of 05-SEP-2012 | | | | | | 12:41,No significant | | | | | | change was | | | | | | foundConfirmed by | | | | | | RINA DIAZ ([id number]) on | | | | | | 09/06/2012 9:57:19 PM | | | | + + + + + + + + | Specimen | + + | | + + + + + | Narrative | Performed At | + + + | Historically converted procedure from [facility] environment | EXTERNAL LAB | + + + + +---------+ + + | Performing | Address | City/State/Zipcode | Phone Number | | Organization | | | | + +---------+ + + | EXTERNAL LAB | | | | + +---------+ + + ECG 12 lead (09/05/2012 12:41 PM PDT) + + + + + + | Component | Value | Ref Range | Performed | Pathologist | | | | | At | Signature | + + + + + + | DIAGNOSIS: | Sinus rhythm with marked | | EXTERNAL | | | | sinus | | LAB | | | | arrhythmiaNonspecific T | | | | | | wave | | | | | | abnormalityProlonged | | | | | | QTAbnormal ECGWhen | | | | | | compared with ECG of | | | | | | 05-SEP-2012 03:10,No | | | | | | significant change was | | | | | | foundConfirmed by | | | | | | RINA DIAZ ([id number]) on | | | | | | 09/05/2012 2:39:02 PM | | | | + + + + + + + + | Specimen | + + | | + + + + + | Narrative | Performed At | + + + | Historically converted procedure from [facility] | EXTERNAL LAB | + + + + +---------+ + + | Performing | Address | City/State/Zipcode | Phone Number | | Organization | | | | + +---------+ + + | EXTERNAL LAB | | | | + +---------+ + + CV CARDIAC PROCEDURE (09/05/2012 11:43 AM PDT) + + | Specimen | + + | | + + + + + | Narrative | Performed At | + + + | | | | | | | PROCEDURES 1. Left heart catheterization with left ventriculogram. | | | 2. Selective coronary angiography. 3. Selective left internal mammary | | | artery angiography. 4. Selective vein graft angiography. 5. | | | Percutaneous transluminal coronary angioplasty and stenting of the | | | posterior descending artery branch of the right coronary artery | | | with 2.25 x 12 mm Nardin balloon followed by stenting with 2.5 x 12 | | | mm Promus Element drug eluting stent. 6. Percutaneous | | | transluminal coronary angioplasty of the distal right coronary | | | artery with 3 x 12 mm Nardin balloon followed by stenting with 3.5 | | | x 15 mm Promus Element drug eluting stent. INDICATIONS This is a | | | 66-year-old lady with history of coronary artery disease | | | and previous stenting of left circumflex as well as coronary artery | | | bypass surgery who presented with unstable angina pectoris and had | | | mildly positive troponin. She was referred for coronary angiography | | | and possible coronary intervention. For details regarding her | | | presentation, kindly refer to Dr. Naqvi's note. DESCRIPTION OF | | | PROCEDURE The patient was brought to the catheterization lab in the | | | fasting state and was prepped and draped in the usual sterile | | | fashion. Arterial access was obtained via right femoral artery and a | | | 6-[place] arterial sheath was placed. A 6-[place] JL4 catheter was then | | | advanced under fluoroscopic guidance and engaged with the ostium of | | | the left main coronary artery, and multiple projections of the left | | | coronary systems were obtained with the use of contrast injections. | | | The catheter was then exchanged to a 6-[place] JR4 catheter, which was | | | advanced under fluoroscopic guidance and engaged with the ostium of | | | the right coronary artery, and multiple projections of the right | | | coronary artery were obtained with the use of contrast injections. | | | The catheter was then exchanged to a 6-[place] pigtail catheter which | | | was advanced into the left ventricle, and projections of left | | | ventricular function in the LEIVA view were done with contrast | | | injections. The JR-4 catheter was used to engage a Y shaped graft | | | to the diagonal branch and marginal branch as well as graft to the | | | RCA and then was advanced to the left subclavian and projection of | | | the CASAS graft was done with the use of contrast injections. | | | FINDINGS CORONARY ANGIOGRAPHY The coronary system was right | | | dominant. 1. The left main bifurcated into the LAD and left | | | circumflex. Left main artery was free of disease. 2. Left | | | anterior descending artery was totally occluded proximally. 3. Left | | | circumflex coronary artery was extensively stented from the mid | | | to the distal vessel. The second marginal branch was totally | | | occluded. The third marginal branch originates from within the | | | stent and has severe stenosis with slow flow. There is also 40% | | | to 50% stenosis in the distal circumflex after the stent in | | | the distal part. 4. The right coronary artery was heavily calcified | | | and was mildly to moderately diseased at the proximal and mid | | | vessel. However, there is a severe stenosis distally, estimated | | | to be around 95%. It then bifurcated into the TASNEEM and PDA | | | branches which were at least moderately diseased. However, | | | there is a focal lesion in the mid PDA estimated to be around | | | 90% as well. LEFT VENTRICULOGRAM In LEIVA view showed normally | | | contracted left ventricle with ejection fraction 60%. VEIN GRAFT | | | ANGIOGRAPHY 1. There was 1 vein graft to what appears to have been | | | RCA territory that was totally occluded. 2. There is a Y-shaped | | | vein graft to the first diagonal and second marginal branch and | | | was widely patent with no significant stenosis. 3. CASAS graft to the | | | distal LAD was widely patent. INTERVENTIONAL TECHNIQUE The | | | patient's most significant lesion appears to be in the distal RCA and | | | the PDA branches. With that, I proceeded with coronary intervention | | | on the RCA and AL-1 guider catheter was advanced and engaged with the | | | RCA. Angiomax was given. BMW guidewire was threaded in the RCA and | | | could not directed to the TASNEEM. Angioplasty was then done with 3 x 12 | | | mm Nardin balloon at the site of the distal RCA lesion. Following that, | | | I tried to redirect the wire into the PDA but could not be done | | | because of losing the tip curve and therefore a second BMW guidewire | | | was redirected and with some challenge, I was able to send it into | | | the PDA branch. The first BMW wire was then removed and PTCA was done | | | in the PDA lesion. A 2.5 x 12 mm Promus Element drug-eluting stent | | | was then delivered with some challenge to the PDA lesion and deployed | | | with nominal atmosphere with excellent results. Attempt to advance | | | 3.5 x 15 mm Promus Element drug eluting stent through the calcified | | | mid lesion in the RCA to the distal RCA failed and therefore a | | | Mailman was advanced but again the stent could not be delivered. | | | Finally a Wiggle wire was advanced to the distal TASNEEM and I was able | | | to advance a 3.5 x 15 mm Promus Element drug eluting stent which was | | | deployed at the site of the distal RCA lesion. Projection of the | | | vessel showed good final results. The patient tolerated the procedure | | | well and there were no immediate complications. ESTIMATED BLOOD | | | LOSS Less than 50 mL. CONCLUSION/RECOMMENDATIONS 1. Complex | | | coronary artery disease with patent left internal mammary to the | | | distal left anterior descending, Y-graft to the first diagonal | | | branch and second marginal branch. 2. Widely patent stent of the left | | | circumflex territory with 40% to 50% post stent stenosis as well | | | as stenosis of small distal marginal branch. 3. Occluded vein | | | graft to the right coronary artery. 4. Severe stenosis of the distal | | | right coronary artery and posterior descending artery. 5. Status | | | post percutaneous transluminal coronary angioplasty and stenting | | | of the distal right coronary artery and posterior descending artery | | | as above. 6. Preserved left ventricular systolic function. 7. | | | The patient will continue to need aggressive medical therapy. | | | Read by RINA DIAZ MD 09/07/2012 12:39 P | | + + + + + | Procedure Note | + + | Javier Gay - 11/20/2018 8:07 PM PDT | | | | PROCEDURES | | 1. Left heart catheterization with left ventriculogram. | | 2. Selective coronary angiography. | | 3. Selective left internal mammary artery angiography. | | 4. Selective vein graft angiography. | | 5. Percutaneous transluminal coronary angioplasty and stenting of the | | posterior descending artery branch of the right coronary artery with | | 2.25 x 12 mm Nardin balloon followed by stenting with 2.5 x 12 mm Promus | | Element drug eluting stent. | | 6. Percutaneous transluminal coronary angioplasty of the distal right | | coronary artery with 3 x 12 mm Nardin balloon followed by stenting with | | 3.5 x 15 mm Promus Element drug eluting stent. | | | | INDICATIONS | | This is a 66-year-old lady with history of coronary artery | | disease and previous stenting of left circumflex as well as coronary | | artery bypass surgery who presented with unstable angina pectoris and had | | mildly positive troponin. She was referred for coronary angiography and | | possible coronary intervention. For details regarding her presentation, | | kindly refer to Dr. Naqvi's note. | | | | DESCRIPTION OF PROCEDURE | | The patient was brought to the catheterization lab in the fasting state | | and was prepped and draped in the usual sterile fashion. Arterial access | | was obtained via right femoral artery and a 6-[place] arterial sheath was | | placed. A 6-[place] JL4 catheter was then advanced under fluoroscopic | | guidance and engaged with the ostium of the left main coronary artery, and | | multiple projections of the left coronary systems were obtained with the | | use of contrast injections. The catheter was then exchanged to a 6-[place] | | JR4 catheter, which was advanced under fluoroscopic guidance and engaged | | with the ostium of the right coronary artery, and multiple projections of | | the right coronary artery were obtained with the use of contrast | | injections. The catheter was then exchanged to a 6-[place] pigtail catheter | | which was advanced into the left ventricle, and projections of left | | ventricular function in the LEIVA view were done with contrast injections. | | | | The JR-4 catheter was used to engage a Y shaped graft to the diagonal | | branch and marginal branch as well as graft to the RCA and then was | | advanced to the left subclavian and projection of the CASAS graft was done | | with the use of contrast injections. | | | | FINDINGS | | | | CORONARY ANGIOGRAPHY | | The coronary system was right dominant. | | 1. The left main bifurcated into the LAD and left circumflex. Left main | | artery was free of disease. | | 2. Left anterior descending artery was totally occluded proximally. | | 3. Left circumflex coronary artery was extensively stented from the mid | | to the distal vessel. The second marginal branch was totally occluded. | | The third marginal branch originates from within the stent and has | | severe stenosis with slow flow. There is also 40% to 50% stenosis in | | the distal circumflex after the stent in the distal part. | | 4. The right coronary artery was heavily calcified and was mildly to | | moderately diseased at the proximal and mid vessel. However, there is | | a severe stenosis distally, estimated to be around 95%. It then | | bifurcated into the TASNEEM and PDA branches which were at least | | moderately diseased. However, there is a focal lesion in the mid PDA | | estimated to be around 90% as well. | | | | LEFT VENTRICULOGRAM | | In LEIVA view showed normally contracted left ventricle with ejection | | fraction 60%. | | | | VEIN GRAFT ANGIOGRAPHY | | 1. There was 1 vein graft to what appears to have been RCA territory that | | was totally occluded. | | 2. There is a Y-shaped vein graft to the first diagonal and second | | marginal branch and was widely patent with no significant stenosis. | | 3. CASAS graft to the distal LAD was widely patent. | | | | INTERVENTIONAL TECHNIQUE | | The patient's most significant lesion appears to be in the distal RCA and | | the PDA branches. With that, I proceeded with coronary intervention on the | | RCA and AL-1 guider catheter was advanced and engaged with the RCA. | | Angiomax was given. BMW guidewire was threaded in the RCA and could not | | directed to the TASNEEM. Angioplasty was then done with 3 x 12 mm Nardin balloon | | at the site of the distal RCA lesion. Following that, I tried to redirect | | the wire into the PDA but could not be done because of losing the tip | | curve and therefore a second BMW guidewire was redirected and with some | | challenge, I was able to send it into the PDA branch. The first BMW wire | | was then removed and PTCA was done in the PDA lesion. A 2.5 x 12 mm Promus | | Element drug-eluting stent was then delivered with some challenge to the | | PDA lesion and deployed with nominal atmosphere with excellent results. | | Attempt to advance 3.5 x 15 mm Promus Element drug eluting stent through | | the calcified mid lesion in the RCA to the distal RCA failed and therefore | | a Mailman was advanced but again the stent could not be delivered. Finally | | a Wiggle wire was advanced to the distal TASNEEM and I was able to advance a | | 3.5 x 15 mm Promus Element drug eluting stent which was deployed at the | | site of the distal RCA lesion. Projection of the vessel showed good final | | results. The patient tolerated the procedure well and there were no | | immediate complications. | | | | ESTIMATED BLOOD LOSS | | Less than 50 mL. | | | | CONCLUSION/RECOMMENDATIONS | | 1. Complex coronary artery disease with patent left internal mammary to | | the distal left anterior descending, Y-graft to the first diagonal | | branch and second marginal branch. | | 2. Widely patent stent of the left circumflex territory with 40% to 50% | | post stent stenosis as well as stenosis of small distal marginal | | branch. | | 3. Occluded vein graft to the right coronary artery. | | 4. Severe stenosis of the distal right coronary artery and posterior | | descending artery. | | 5. Status post percutaneous transluminal coronary angioplasty and stenting | | of the distal right coronary artery and posterior descending artery as | | above. | | 6. Preserved left ventricular systolic function. | | 7. The patient will continue to need aggressive medical therapy. | | | | | | Read by RINA DIAZ MD 09/07/2012 12:39 P | | | | | + + CV CARDIAC PROCEDURE (09/05/2012 11:43 AM PDT) + + | Specimen | + + | | + + + + + | Narrative | Performed At | + + + | | | | | | | PROCEDURES 1. Left heart catheterization with left ventriculogram. | | | 2. Selective coronary angiography. 3. Selective left internal mammary | | | artery angiography. 4. Selective vein graft angiography. 5. | | | Percutaneous transluminal coronary angioplasty and stenting of the | | | posterior descending artery branch of the right coronary artery | | | with 2.25 x 12 mm Nardin balloon followed by stenting with 2.5 x 12 | | | mm Promus Element drug eluting stent. 6. Percutaneous | | | transluminal coronary angioplasty of the distal right coronary | | | artery with 3 x 12 mm Nardin balloon followed by stenting with 3.5 | | | x 15 mm Promus Element drug eluting stent. INDICATIONS This is a | | | 66-year-old lady with history of coronary artery disease | | | and previous stenting of left circumflex as well as coronary artery | | | bypass surgery who presented with unstable angina pectoris and had | | | mildly positive troponin. She was referred for coronary angiography | | | and possible coronary intervention. For details regarding her | | | presentation, kindly refer to Dr. Naqvi's note. DESCRIPTION OF | | | PROCEDURE The patient was brought to the catheterization lab in the | | | fasting state and was prepped and draped in the usual sterile | | | fashion. Arterial access was obtained via right femoral artery and a | | | 6-[place] arterial sheath was placed. A 6-[place] JL4 catheter was then | | | advanced under fluoroscopic guidance and engaged with the ostium of | | | the left main coronary artery, and multiple projections of the left | | | coronary systems were obtained with the use of contrast injections. | | | The catheter was then exchanged to a 6-[place] JR4 catheter, which was | | | advanced under fluoroscopic guidance and engaged with the ostium of | | | the right coronary artery, and multiple projections of the right | | | coronary artery were obtained with the use of contrast injections. | | | The catheter was then exchanged to a 6-[place] pigtail catheter which | | | was advanced into the left ventricle, and projections of left | | | ventricular function in the LEIVA view were done with contrast | | | injections. The JR-4 catheter was used to engage a Y shaped graft | | | to the diagonal branch and marginal branch as well as graft to the | | | RCA and then was advanced to the left subclavian and projection of | | | the CASAS graft was done with the use of contrast injections. | | | FINDINGS CORONARY ANGIOGRAPHY The coronary system was right | | | dominant. 1. The left main bifurcated into the LAD and left | | | circumflex. Left main artery was free of disease. 2. Left | | | anterior descending artery was totally occluded proximally. 3. Left | | | circumflex coronary artery was extensively stented from the mid | | | to the distal vessel. The second marginal branch was totally | | | occluded. The third marginal branch originates from within the | | | stent and has severe stenosis with slow flow. There is also 40% | | | to 50% stenosis in the distal circumflex after the stent in | | | the distal part. 4. The right coronary artery was heavily calcified | | | and was mildly to moderately diseased at the proximal and mid | | | vessel. However, there is a severe stenosis distally, estimated | | | to be around 95%. It then bifurcated into the TASNEEM and PDA | | | branches which were at least moderately diseased. However, | | | there is a focal lesion in the mid PDA estimated to be around | | | 90% as well. LEFT VENTRICULOGRAM In LEIVA view showed normally | | | contracted left ventricle with ejection fraction 60%. VEIN GRAFT | | | ANGIOGRAPHY 1. There was 1 vein graft to what appears to have been | | | RCA territory that was totally occluded. 2. There is a Y-shaped | | | vein graft to the first diagonal and second marginal branch and | | | was widely patent with no significant stenosis. 3. CASAS graft to the | | | distal LAD was widely patent. INTERVENTIONAL TECHNIQUE The | | | patient's most significant lesion appears to be in the distal RCA and | | | the PDA branches. With that, I proceeded with coronary intervention | | | on the RCA and AL-1 guider catheter was advanced and engaged with the | | | RCA. Angiomax was given. BMW guidewire was threaded in the RCA and | | | could not directed to the TASNEEM. Angioplasty was then done with 3 x 12 | | | mm Nardin balloon at the site of the distal RCA lesion. Following that, | | | I tried to redirect the wire into the PDA but could not be done | | | because of losing the tip curve and therefore a second BMW guidewire | | | was redirected and with some challenge, I was able to send it into | | | the PDA branch. The first BMW wire was then removed and PTCA was done | | | in the PDA lesion. A 2.5 x 12 mm Promus Element drug-eluting stent | | | was then delivered with some challenge to the PDA lesion and deployed | | | with nominal atmosphere with excellent results. Attempt to advance | | | 3.5 x 15 mm Promus Element drug eluting stent through the calcified | | | mid lesion in the RCA to the distal RCA failed and therefore a | | | Mailman was advanced but again the stent could not be delivered. | | | Finally a Wiggle wire was advanced to the distal TASNEEM and I was able | | | to advance a 3.5 x 15 mm Promus Element drug eluting stent which was | | | deployed at the site of the distal RCA lesion. Projection of the | | | vessel showed good final results. The patient tolerated the procedure | | | well and there were no immediate complications. ESTIMATED BLOOD | | | LOSS Less than 50 mL. CONCLUSION/RECOMMENDATIONS 1. Complex | | | coronary artery disease with patent left internal mammary to the | | | distal left anterior descending, Y-graft to the first diagonal | | | branch and second marginal branch. 2. Widely patent stent of the left | | | circumflex territory with 40% to 50% post stent stenosis as well | | | as stenosis of small distal marginal branch. 3. Occluded vein | | | graft to the right coronary artery. 4. Severe stenosis of the distal | | | right coronary artery and posterior descending artery. 5. Status | | | post percutaneous transluminal coronary angioplasty and stenting | | | of the distal right coronary artery and posterior descending artery | | | as above. 6. Preserved left ventricular systolic function. 7. | | | The patient will continue to need aggressive medical therapy. | | | Read by RINA DIAZ MD 09/07/2012 12:39 P | | + + + + + | Procedure Note | + + | Javier Gay Conversion - 11/20/2018 8:07 PM PDT | | | | PROCEDURES | | 1. Left heart catheterization with left ventriculogram. | | 2. Selective coronary angiography. | | 3. Selective left internal mammary artery angiography. | | 4. Selective vein graft angiography. | | 5. Percutaneous transluminal coronary angioplasty and stenting of the | | posterior descending artery branch of the right coronary artery with | | 2.25 x 12 mm Nardin balloon followed by stenting with 2.5 x 12 mm Promus | | Element drug eluting stent. | | 6. Percutaneous transluminal coronary angioplasty of the distal right | | coronary artery with 3 x 12 mm Nardin balloon followed by stenting with | | 3.5 x 15 mm Promus Element drug eluting stent. | | | | INDICATIONS | | This is a 66-year-old lady with history of coronary artery | | disease and previous stenting of left circumflex as well as coronary | | artery bypass surgery who presented with unstable angina pectoris and had | | mildly positive troponin. She was referred for coronary angiography and | | possible coronary intervention. For details regarding her presentation, | | kindly refer to Dr. Naqvi's note. | | | | DESCRIPTION OF PROCEDURE | | The patient was brought to the catheterization lab in the fasting state | | and was prepped and draped in the usual sterile fashion. Arterial access | | was obtained via right femoral artery and a 6-[place] arterial sheath was | | placed. A 6-[place] JL4 catheter was then advanced under fluoroscopic | | guidance and engaged with the ostium of the left main coronary artery, and | | multiple projections of the left coronary systems were obtained with the | | use of contrast injections. The catheter was then exchanged to a 6-[place] | | JR4 catheter, which was advanced under fluoroscopic guidance and engaged | | with the ostium of the right coronary artery, and multiple projections of | | the right coronary artery were obtained with the use of contrast | | injections. The catheter was then exchanged to a 6-[place] pigtail catheter | | which was advanced into the left ventricle, and projections of left | | ventricular function in the LEIVA view were done with contrast injections. | | | | The JR-4 catheter was used to engage a Y shaped graft to the diagonal | | branch and marginal branch as well as graft to the RCA and then was | | advanced to the left subclavian and projection of the CASAS graft was done | | with the use of contrast injections. | | | | FINDINGS | | | | CORONARY ANGIOGRAPHY | | The coronary system was right dominant. | | 1. The left main bifurcated into the LAD and left circumflex. Left main | | artery was free of disease. | | 2. Left anterior descending artery was totally occluded proximally. | | 3. Left circumflex coronary artery was extensively stented from the mid | | to the distal vessel. The second marginal branch was totally occluded. | | The third marginal branch originates from within the stent and has | | severe stenosis with slow flow. There is also 40% to 50% stenosis in | | the distal circumflex after the stent in the distal part. | | 4. The right coronary artery was heavily calcified and was mildly to | | moderately diseased at the proximal and mid vessel. However, there is | | a severe stenosis distally, estimated to be around 95%. It then | | bifurcated into the TASNEEM and PDA branches which were at least | | moderately diseased. However, there is a focal lesion in the mid PDA | | estimated to be around 90% as well. | | | | LEFT VENTRICULOGRAM | | In LEIVA view showed normally contracted left ventricle with ejection | | fraction 60%. | | | | VEIN GRAFT ANGIOGRAPHY | | 1. There was 1 vein graft to what appears to have been RCA territory that | | was totally occluded. | | 2. There is a Y-shaped vein graft to the first diagonal and second | | marginal branch and was widely patent with no significant stenosis. | | 3. CASAS graft to the distal LAD was widely patent. | | | | INTERVENTIONAL TECHNIQUE | | The patient's most significant lesion appears to be in the distal RCA and | | the PDA branches. With that, I proceeded with coronary intervention on the | | RCA and AL-1 guider catheter was advanced and engaged with the RCA. | | Angiomax was given. BMW guidewire was threaded in the RCA and could not | | directed to the TASNEEM. Angioplasty was then done with 3 x 12 mm Nardin balloon | | at the site of the distal RCA lesion. Following that, I tried to redirect | | the wire into the PDA but could not be done because of losing the tip | | curve and therefore a second BMW guidewire was redirected and with some | | challenge, I was able to send it into the PDA branch. The first BMW wire | | was then removed and PTCA was done in the PDA lesion. A 2.5 x 12 mm Promus | | Element drug-eluting stent was then delivered with some challenge to the | | PDA lesion and deployed with nominal atmosphere with excellent results. | | Attempt to advance 3.5 x 15 mm Promus Element drug eluting stent through | | the calcified mid lesion in the RCA to the distal RCA failed and therefore | | a Mailman was advanced but again the stent could not be delivered. Finally | | a Wiggle wire was advanced to the distal TASNEEM and I was able to advance a | | 3.5 x 15 mm Promus Element drug eluting stent which was deployed at the | | site of the distal RCA lesion. Projection of the vessel showed good final | | results. The patient tolerated the procedure well and there were no | | immediate complications. | | | | ESTIMATED BLOOD LOSS | | Less than 50 mL. | | | | CONCLUSION/RECOMMENDATIONS | | 1. Complex coronary artery disease with patent left internal mammary to | | the distal left anterior descending, Y-graft to the first diagonal | | branch and second marginal branch. | | 2. Widely patent stent of the left circumflex territory with 40% to 50% | | post stent stenosis as well as stenosis of small distal marginal | | branch. | | 3. Occluded vein graft to the right coronary artery. | | 4. Severe stenosis of the distal right coronary artery and posterior | | descending artery. | | 5. Status post percutaneous transluminal coronary angioplasty and stenting | | of the distal right coronary artery and posterior descending artery as | | above. | | 6. Preserved left ventricular systolic function. | | 7. The patient will continue to need aggressive medical therapy. | | | | | | Read by RINA DIAZ MD 09/07/2012 12:39 P | | | | | + + ECG 12 lead (09/05/2012 3:10 AM PDT) + + + + + + | Component | Value | Ref Range | Performed | Pathologist | | | | | At | Signature | + + + + + + | DIAGNOSIS: | Sinus | | EXTERNAL | | | | bradycardiaNonspecific T | | LAB | | | | wave | | | | | | abnormalityAbnormal | | | | | | ECGThis ECG contains | | | | | | Unconfirmed | | | | | | Interpretation | | | | | | Statements. See ED | | | | | | Record for Physician | | | | | | Interpretation. | | | | | | Confirmed by MUSE READ | | | | | | ONLY, -COMPUTER ([id number]), | | | | | | newspaper managing editor CHIN RUCKER | | | | | | (4) on 09/05/2012 6:44:08 | | | | | | AM | | | | + + + + + + + + | Specimen | + + | | + + + + + | Narrative | Performed At | + + + | Historically converted procedure from [facility] environment | EXTERNAL LAB | + + + + +---------+ + + | Performing | Address | City/State/Zipcode | Phone Number | | Organization | | | | + +---------+ + + | EXTERNAL LAB | | | | + +---------+ + + ECG 12 lead (09/04/2012 10:42 PM PDT) + + + + + + | Component | Value | Ref Range | Performed | Pathologist | | | | | At | Signature | + + + + + + | DIAGNOSIS: | Normal sinus | | EXTERNAL | | | | rhythmNonspecific T wave | | LAB | | | | abnormalityAbnormal | | | | | | ECGNo previous ECGs | | | | | | availableThis ECG | | | | | | contains Unconfirmed | | | | | | Interpretation | | | | | | Statements. See ED | | | | | | Record for Physician | | | | | | Interpretation. | | | | | | Confirmed by MUSE READ | | | | | | ONLY, -COMPUTER ([id number]), | | | | | | newspaper managing editor CHIN RUCKER | | | | | | (4) on 09/05/2012 6:44:08 | | | | | | AM | | | | + + + + + + + + | Specimen | + + | | + + + + + | Narrative | Performed At | + + + | Historically converted procedure from [facility] environment | EXTERNAL LAB | + + + + +---------+ + + | Performing | Address | City/State/Zipcode | Phone Number | | Organization | | | | + +---------+ + + | EXTERNAL LAB | | | | + +---------+ + + documented in this encounter Visit Diagnoses + + | Diagnosis | + + | Chest pain Chest pain, unspecified | + + | NSTEMI (non-ST elevated myocardial infarction) (HCC) Acute myocardial infarction, | | subendocardial infarction, episode of care unspecified | + + | CAD (coronary artery disease) Coronary atherosclerosis of unspecified type of vessel, | | [place] or graft | + + | HTN (hypertension) Unspecified essential hypertension | + + documented in this encounter
--- OUTSIDE RECORDS SUMMARY | ~2019-09-05 | XMS | Encounter Summary ---
Demographics + + + | Address | [address] | | | [place] [address] | + + + | Home Phone | | + + + | Preferred Language | Unknown | + + + | Marital Status | | + + + | Bahai Affiliation | 1077 | + + + | Race | Unknown | + + + | Ethnic Group | Unknown | + + + Author + + + | Author | [facility] | | | and [place] | + + + | Organization | [facility] | | | and [place] [...] [place] | | | | | [address] | | + + + + + | Najma Xiong | ECON | Unknown | | + + + + + | Hector Mack | ECON | [address] | | | | | [place] | | | | | [address] | | + + + + + Care Team Providers + +------+ + | Care Change Over Name | Role | Phone | + +------+ + PCP | Unavailable | + +------+ + Encounter Details +--------+ + + + + | Date | Type | Department | Care Team | Description | +--------+ + + + + | 01/24/ | Hospital | [facility] | | | | 1997 - | Encounter | [facility] | | | | | | [address] | | | | 01/27/ | | [place] [id number] | | | | 1997 | | [phone] | | | +--------+ + + + [...] [facility] | | | | | | [id number] | | | | | | | | +--------+---------+ + + + documented as of this encounter Visit Diagnoses Not on filedocumented in this encounter"
--- OUTSIDE RECORDS SUMMARY | ~2019-09-05 | XMS | Encounter Summary ---
Demographics + + + | Address | [address] | | | [place] [address] | + + + | Home Phone | | + + + | Preferred Language | Unknown | + + + | Marital Status | | + + + | Yazidism Affiliation | PRO | + + + | Race | White | + + + | Ethnic Group | Not or | + + + Author + + + | Author | [facility] | + + + | Organization | [facility] | + + + | Address | Unknown | + + + | Phone | Unavailable | + + + Support + + + + + | Name | Relationship | Address | Phone | + + + + + | Hector Mack | ECON | [address] | | | | | [place] | | | | | [address] | | + + + + + Care Team Providers + +------+ + | Care Director Of Intercollegiate Athletics Name | Role | Phone | + +------+ + | Tuan Chan MD | PCP | | + +------+ + Encounter Details +--------+---------+ + + + | Date | Type | Department | Care Team | Description | +--------+---------+ + + + | 12/15/ | Office | Plastic and | Aysha Blackburn | Obesity (Primary Dx) | | 2007 | Visit | Reconstructive | MD Tristin | | | | | Surgery at [facility] [address] | | | | | | Hermila Kol[address] | | | | | | Mailcode: [facility] | | | | | | [facility] | | | | | | and Healing, | | | | | | Building [address], [address]th | | | | | | Floor [place], [place] | | | | | | [address] | | | | | | [phone] | | | +--------+---------+ + + + [...] + documented as of this encounter Progress Aysha Owens - 12/16/2007 9:34 AM PDTPt did not show for appointmentElectronically s igned by Aysha Blackburn at 12/17/2007 1:16 PM PDTdocumented in this encounter Plan of Treatment Not on filedocumented as of this encounter Visit Diagnoses + + | Diagnosis | + + | Obesity - Primary Obesity, unspecified | + + documented in this encounter"
--- OUTSIDE RECORDS SUMMARY | ~2019-09-05 | XMS | Encounter Summary ---
Demographics + + + | [address] | [address] | | | [place] [address] | + + + | Home Phone [...] [place] | | | | | [address] | | + + + + + Care Team Providers + +------+ + | Care Defect Cutter Name | Role | Phone | + +------+ + | Tuan Chan MD | PCP | | + +------+ + Encounter Details +--------+ + + + + | Date | Type | Department | Care Team | Description | +--------+ + + + + | 02/06/ | Respiratory | | Other, Faculty | | | 2005 | Therapy | | [phone] | | +--------+ + + + + [...] | + +--------+ + + + | MEDICAL GAS/HUMIDITY | Routin | 02/09/2006 | | Results for this | | | e | 4:23 AM | | procedure are in the | | | | PST | | results section. | + +--------+ + + + | MEDICAL GAS/HUMIDITY | Routin | 02/08/2006 | | Results for this | | | e | 3:37 PM | | procedure are in the | | | | PST | | results section. | + +--------+ + + + | HOME BIPAP AND CPAP | Routin | 02/08/2006 | | Results for this | | | e | 5:30 AM | | procedure are in the | | | | PST | | results section. | + +--------+ + + + | HOME BIPAP AND CPAP | Routin | 02/08/2006 | | Results for this | | | e | 12:30 AM | | procedure are in the | | | | PST | | results section. | + +--------+ + + + | HOME BIPAP AND CPAP | Routin | 02/07/2006 | | Results for this | | | e | 9:00 PM | | procedure are in the | | | | PST | | results section. | + +--------+ + + + | MEDICAL GAS/HUMIDITY | Routin | 02/07/2006 | | Results for this | | | e | 7:32 PM | | procedure are in the | | | | PST | | results section. | + +--------+ + + + | MEDICAL GAS/HUMIDITY | Routin | 02/07/2006 | | Results for this | | | e | 4:39 AM | | procedure are in the | | | | PST | | results section. | + +--------+ + + + | HOME BIPAP AND CPAP | Routin | 02/06/2006 | | Results for this | | | e | 11:45 PM | | procedure are in the | | | | PST | | results section. | + +--------+ + + + | HOME BIPAP AND CPAP | Routin | 02/06/2006 | | Results for this | | | e | 8:30 PM | | procedure are in the | | | | PST | | results section. | + +--------+ + + + | MEDICAL GAS/HUMIDITY | Routin | 02/06/2006 | | Results for this | | | e | 3:38 PM | | procedure are in the | | | | PST | | results section. | + +--------+ + + + | HOME BIPAP AND CPAP | Routin | 02/06/2006 | | Results for this | | | e | 4:15 AM | | procedure are in the | | | | PST | | results section. | + +--------+ + + + | EVAL, ADULT | Routin | 02/06/2006 | | Results for this | | | e | 12:42 AM | | procedure are in the | | | | PST | | results section. | + +--------+ + + + | MEDICAL GAS/HUMIDITY | Routin | 02/06/2006 | | Results for this | | | e | 12:40 AM | | procedure are in the | | | | PST | | results section. | + +--------+ + + + documented in this encounter Results MEDICAL GAS/HUMIDITY (02/09/2006 4:23 AM PST) + + + + + + | Component | Value | Ref Range | Performed | Pathologist | | | | | At | Signature | + + + + + + | [facility] | Patient is not wearing | | | | | GAS/HUMIDIT | Cpap at night-refusing. | | | | | Y | NASAL CANNULA AT 3 | | | | | | Ap Butler, XRAY TECH | | | | + + + [...] + + + + + | [facility] | [address] | [place], [place] | | | DIAGNOSTICS - | [address] | [address] | | | PULMONARY FUNCTION | | | | + + + + + MEDICAL GAS/HUMIDITY (02/08/2006 3:37 PM PST) + + + + + + | Component | Value | Ref Range | Performed | Pathologist | | | | | At | Signature | + + + + + + | [facility] | NASAL CANNULA AT 3 | | | | | GAS/HUMIDIT | | | | | | Y | Fernanda Castro RCP | | | | + + + [...] + + + + + | [facility] | [address] | [place], [place] | | | DIAGNOSTICS - | [address] | [address] | | | PULMONARY FUNCTION | | | | + + + + + HOME BIPAP AND CPAP (02/08/2006 5:30 AM PST) + + + + + + | Component | Value | Ref Range | Performed | Pathologist | | | | | At | Signature | + + + + + + | RESPIRATORY | PATIENT IS NOT CURRENTLY | | | | | CARE | USING THEIR CPAP: | | | | | | Refused HR= 67 RR= | | | | | | 16 SPO2=98 Noe | | | | | | AMARJIT Alas | | | | + + + [...] + + + + + | [facility] | [address] | [place], [place] | | | DIAGNOSTICS - | [address] | [address] | | | PULMONARY FUNCTION | | | | + + + + + HOME BIPAP AND CPAP (02/08/2006 12:30 AM PST) + + + + + + | Component | Value | Ref Range | Performed | Pathologist | | | | | At | Signature | + + + + + + | RESPIRATORY | PATIENT IS NOT CURRENTLY | | | | | CARE | USING THEIR CPAP: | | | | | | Refused HR= 76 RR= | | | | | | 18 SPO2=99 Noe | | | | | | CASPER AlasP | | | | + + + [...] + + + + + | [facility] | [address] | [place], [place] | | | DIAGNOSTICS - | [address] | [address] | | | PULMONARY FUNCTION | | | | + + + + + HOME BIPAP AND CPAP (02/07/2006 9:00 PM PST) + + + + + + | Component | Value | Ref Range | Performed | Pathologist | | | | | At | Signature | + + + + + + | RESPIRATORY | PATIENT IS NOT CURRENTLY | | | | | CARE | USING THEIR CPAP: | | | | | | Patient feels that the | | | | | | pressureof 9 cmH2o is | | | | | | too high and does not | | | | | | want to wear it. HR= | | | | | | 72 RR= 12 SPO2= 94 | | | | | | Noe Alas, XRAY TECH | | | | + + + [...] + + + + + | [facility] | [address] | [place], [place] | | | DIAGNOSTICS - | [address] | [address] | | | PULMONARY FUNCTION | | | | + + + + + MEDICAL GAS/HUMIDITY (02/07/2006 7:32 PM PST) + + + + + + | Component | Value | Ref Range | Performed | Pathologist | | | | | At | Signature | + + + + + + | [facility] | NASAL CANNULA AT 2 | | | | | GAS/HUMIDIT | | | | | | Y | Darline Campos RCP | | | | + + + [...] + + + + + | [facility] | [address] | [place], [place] | | | DIAGNOSTICS - | [address] | [address] | | | PULMONARY FUNCTION | | | | + + + + + MEDICAL GAS/HUMIDITY (02/07/2006 4:39 AM PST) + + + + + + | Component | Value | Ref Range | Performed | Pathologist | | | | | At | Signature | + + + + + + | [facility] | NASAL CANNULA AT 2. | | | | | GAS/HUMIDIT | | | | | | Y | Jfef Watts RCP | | | | + + + [...] + + + + + | [facility] | [address] | [place], [place] | | | DIAGNOSTICS - | [address] | [address] | | | PULMONARY FUNCTION | | | | + + + + + HOME BIPAP AND CPAP (02/06/2006 11:45 PM PST) + + + + + + | Component | Value | Ref Range | Performed | Pathologist | | | | | At | Signature | + + + + + + | RESPIRATORY | PATIENT IS NOT CURRENTLY | | | | | CARE | USING THEIR CPAP: PT | | | | | | REFUSES TO WEAR IT HR= | | | | | | 980RR= 18 SPO2= 94 | | | | | | Jeff aWtts XRAY TECH | | | | + + + [...] + + + + + | [facility] | [address] | [place], [place] | | | DIAGNOSTICS - | [address] | [address] | | | PULMONARY FUNCTION | | | | + + + + + HOME BIPAP AND CPAP (02/06/2006 8:30 PM PST) + + + + + + | Component | Value | Ref Range | Performed | Pathologist | | | | | At | Signature | + + + + + + | RESPIRATORY | PATIENT ON HOME CPAP | | | | | CARE | DEVICE SET PER HOME | | | | | | REGIMEN WITH OXYGEN BLED | | | | | | IN AT 2L/M HR= 78 | | | | | | RR= 14 SPO2= 93 | | | | | | Mark Giraldo, XRAY TECH | | | | + + + [...] + + + + + | [facility] | [address] | [place], [place] | | | DIAGNOSTICS - | [address] | [address] | | | PULMONARY FUNCTION | | | | + + + + + MEDICAL GAS/HUMIDITY (02/06/2006 3:38 PM PST) + + + + + + | Component | Value | Ref Range | Performed | Pathologist | | | | | At | Signature | + + + + + + | [facility] | NASAL CANNULA AT 3 | | | | | GAS/HUMIDIT | | | | | | Y | Cody Peralta RCP | | | | + + + [...] + + + + + | [facility] | [address] | [place], [place] | | | DIAGNOSTICS - | [address] | [address] | | | PULMONARY FUNCTION | | | | + + + + + HOME BIPAP AND CPAP (02/06/2006 4:15 AM PST) + + + + + + | Component | Value | Ref Range | Performed | Pathologist | | | | | At | Signature | + + + + + + | RESPIRATORY | PATIENT IS NOT CURRENTLY | | | | | CARE | USING THEIR CPAP: | | | | | | Refusing HR= 92 RR= | | | | | | 16 BREATHSOUNDS = | | | | | | CLEAR . SPO2= 92 Sirisha | | | | | | AMARJIT Vigil | | | | + + + [...] | + + + + + | [facility] | [address] | [place], [place] | | | DIAGNOSTICS - | [address] | [address] | | | PULMONARY FUNCTION | | | | + + + + + EVAL, ADULT (02/06/2006 12:42 AM PST) + + + + + + | Component | Value | Ref Range | Performed | Pathologist | | | | | At | Signature | + + + + + + | [facility] | RESPIRATORY CARE | | | | | ADULT | EVALUATION ADMISSION | | | | | | DIAGNOSIS: ACHALASIA; | | | | | | 530.0 . THE INITIAL | | | | | | RESPIRATORY CARE ORDER | | | | | | IS FOR EVALUATE AND | | | | | | TREAT . PULMONARY | | | | | | HISTORY INCLUDES | | | | | | OBSTRUCTIVESLEEP APNEA . | | | | | | CURRENT PULMONARY | | | | | | PROBLEMS INCLUDE | | | | | | ABDOMINAL SURGERY | | | | | | ANDOBSTRUCTIVE SLEEP | | | | | | APNEA . SMOKING | | | | | | HISTORY: NEVER SMOKED | | | | | | .Albuterol PRNfor hx of | | | | | | heart issues . VITAL | | | | | | SIGNS:PATIENTS PAIN | | | | | | ASSESSED AND WAS FOURON | | | | | | A SCALE OF ZERO TO 10. | | | | | | GRILL CHEF IN USE: PATIENT SELF | | | | | | ADMINISTERED | | | | | | PAINMEDICATION. TEMP | | | | | | = 37.4 C, HR = 86 | | | | | | , RR = 16 , SaO2 = | | | | | | 93 % ONNASAL CANNULA | | | | | | AT 2 GOOD | | | | | | NON-PRODUCTIVE COUGH: | | | | | | DIMINISHED . | | | | | | NORMAL,QUIET BREATHING | | | | | | . AMBULATORY . | | | | | | COOPERATIVE . SPUTUM | | | | | | CULTURES: NONE | | | | | | [id number] HOURS . . | | | | | | CHEST IMAGING: NONE | | | | | | WITHIN 72 HOURS . | | | | | | THERAPEUTIC | | | | | | GOALS:CONTINUE HOME | | | | | | MARIE . PLAN: | | | | | | CONTINUE HOME REGIMEN. | | | | | | . Sirisha Vigil, [facility] | | | | + + + [...] + + + + + | [facility] | [address] | [place], [place] | | | DIAGNOSTICS - | [address] | [address] | | | PULMONARY FUNCTION | | | | + + + + + MEDICAL GAS/HUMIDITY (02/06/2006 12:40 AM PST) + + + + + + | Component | Value | Ref Range | Performed | Pathologist | | | | | At | Signature | + + + + + + | [facility] | NASAL CANNULA AT 2.5 | | | | | GAS/HUMIDIT | | | | | | Y | Sirisha Vigil RCP | | | | + + + [...] + + + + + | [facility] | [address] | [place], [place] | | | DIAGNOSTICS - | [address] | [address] | | | PULMONARY FUNCTION | | | | + + + + + documented in this encounter Visit Diagnoses Not on filedocumented in this encounter"
--- OUTSIDE RECORDS SUMMARY | ~2019-09-05 | XMS | Encounter Summary ---
Demographics + + + | [address] | [address] | | | [place] [address] | + + + | Home Phone | | + + + | Preferred Language | Unknown | + + + | Marital Status | | + + + | Yazdanism Affiliation | PRO | + + + [...] [place] | | | | | [address] | | + + + + + Care Team Providers + +------+ + | Care Desktop Publisher Name | Role | Phone | + +------+ + | Tuan Chan MD | PCP | | + +------+ + Reason for Visit + + + | Reason | Comments | + + + | New patient | | | consultation | | + + + | Preop | | + + + | Urolithiasis | | + + + Encounter Details +--------+---------+ + + + | Date | Type | Department | Care Team | Description | +--------+---------+ + + + | 06/02/ | Office | Urology Adult | Lemuel Noe, | Urolithiasis | | 2007 | Visit | [address] | MD [address] | (Primary Dx) | | | | Mailcode: [id number] | [place], [place] | | | | | [facility] | [address] | | | | | and [place], | [phone] | | | | | [facility] | | | | | | Floor [place], [place] | | | | | | [address] | | | | | | [phone] | | | +--------+---------+ + + + [...] + + + | Blood Pressure | 105/79 | 06/03/2007 2:30 PM | | | | | PST | | + + + + + | Pulse | 60 | 06/03/2007 2:30 PM | | | | | PST [...] 87.3 kg (192 lb 8 | 06/03/2007 2:30 PM | | | | oz) | PST | | + + + + + | Height | - | - | | + + + + + | Body Mass Index | 33.04 | 05/05/2006 11:49 AM | | | | | PST | | + + + + + documented in this encounter Progress Notes Noe Hdez - 06/03/2007 3:14 PM PST Addended by: NOE HDEZ MD on: 06/03/2007 3: 14:30 PM Modules accepted: Orders oe Hdez - 06/02 2:53 PM PST History of Present Illness: Germaine Heard is a 61 y.o. female is referred by Dr. Prince and is here today for uro lithiasis. She has a 1.5 cm stone in the right kidney identified on CT scan in February. Ref erred for treatment. 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 Other General Symptoms DM w/o Complication Type II Pure Hypercholesterolemia Symptomatic Menopausal or Female Climacteric States GERD (Gastroesophageal Reflux Disease) Sleep Apnea Past Surgical History: Past Surgical History Procedure Date Pr cabg, vein, four 7 years ago Hx appendectomy Hx cholecystectomy Hx tonsil and adenoidectomy Current outpatient medications Medication Sig Metaxalone (SKELAXIN) 800 mg Oral Tablet take 1 tablet (800 mg) by oral route 2-3 times per day as needed Bupropion HCl (WELLBUTRIN SR) 150 mg Oral Tablet Sustained Release Take 1 tablet as nee ded. POTASSIUM OR Take 2 tablets daily. MULTIVITAMIN OR Take 1 tablet daily. LOVASTATIN 20 MG TAB take 1 tablet (20mg) by oral route once daily with evening meal TOPROL XL OR None Entered PLAVIX 75 MG TAB take 1 tablet (75mg) by oral route once daily LISINOPRIL 5 MG TAB take 1 tablet (5mg) by oral route once daily BUMETANIDE 1 MG TAB 1 tab BID ALBUTEROL 90 MCG/ACTUATION AEROSOL INHALER inhale 1 puff by inhalation route every 4-6 hours as needed HYDROCODONE-ACETAMINOPHEN 10 MG-325 MG TAB take 1 tablet by oral route every 4-6 hours as needed for pain MORPHINE OR None Entered Allergies Allergen Reactions Codeine Hives and Rash ROS: Please see scanned patient information form for details. History Social History Marital Status: Spouse Name: N/A Number of Children: 1 Years of Education: N/A Occupational History [employer] Social History Main Topics Tobacco Use: Quit -- 3.0 packs/day for 20 years Quit date: 11/20/1988 Alcohol Use: No quit 18 years ago Drug Use: Not on file Sexually Active: Not on file Other Topics Concern Not on file Social History Narrative No narrative on file Objective: BP 105/79 | Pulse 60 | Wt 87.317 kg (192 lbs 8 oz) Exam: General appearance: The patient appears healthy and comfortable, in no apparent distress, a nd is well developed and well nourished. Lungs: clear COR: regular without murmur Abdomen: soft, no tenderness to palpation, no palpable masses. Back: no spinous process, paraspinous muscular, or costovertebral angle tenderness, on the left, positive, mild on the right. Study Results: CT scan shows a right renal 1.5 cm stone. Impression/Plan: Encounter Diagnoses Code Name Primary? 592.9M Urolithiasis Yes Plan: UA DIPSTICK ONLY, POC I discussed kidney stone treatment options with Germaine Heard including shockwave lit hotripsy, ureteroscopy and laser lithotripsy, and percutaneous nephrostolithotomy, and we madrigal ve agreed upon ureteroscopy and laser lithotripsy. PARQ: A complete PARQ conference was held with the patient who appears to understand the na ture of the procedure, the alternatives,and the risks, and all of her questions were answere d. She gives informed consent for surgery. heng, Adriana - 06/03/2007 2:32 PM PSTUA done per verbal order of Dr. Halllectronically signed by Adriana Cortez at 0 06/03/2007 2:32 PM PSTdocumented in this encounter Plan of Treatment + +---------+--------+ + + | Name | Type | Priori | Associated Diagnoses | Order Schedule | | | | ty | | | + +---------+--------+ + + | CT RENAL COLIC | Imaging | Routin | Urolithiasis | Ordered: 06/03/2007 | | PELVIS WO CONT | | e | | | + +---------+--------+ + + | CT RENAL COLIC ABD | Imaging | Routin | Urolithiasis | Ordered: 06/03/2007 | | LTD WO CON | | e | | | + +---------+--------+ + + documented as of this encounter Procedures + +--------+ + + + | Procedure Name | Priori | Date/Time | Associated Diagnosis | Comments | | | ty | | | | + +--------+ + + + | UA 10 DIP POC | Routin | 06/03/2007 | Urolithiasis | Results for this | | | e | 2:47 PM | | procedure are in the | | | | PST | | results section. | + +--------+ + + + documented in this encounter Results UA DIPSTICK ONLY, POC (06/03/2007 2:47 PM PST) + + + + + + | Component | Value | Ref Range | Performed | Pathologist | | | | | At | Signature | + + + + + + | COLOR (UA | shaji | | [facility] | | | DIP), POC | | | OF CARE | | | | | | TESTS | | + + + + + + | APPEARANCE | mod cloudy | | [facility] | | | (UA DIP), | | | OF CARE | | | POC | | | TESTS | | + + + + + + | LEUKOCYTES | mod | Negative | [facility] | | | (UA DIP), | | | OF CARE | | | POC | | | TESTS | | + + + + + + | NITRITES | neg | Negative | [facility] | | | (UA DIP), | | | OF CARE | | | POC | | | TESTS | | + + + + + + | UROBILINOGE | norm | 0.2 CATHI | [facility] | | | N (UA DIP), | | UNITS | OF CARE | | | POC | | | TESTS | | + + + + + + | PROTEIN (UA | 300 | Negative to | [facility] | | | DIP), POC | | Trace mg/dL | OF CARE | | | | | | TESTS | | + + + + + + | PH (UA | 6.0 | 5 - 8 | [facility] | | | DIP), POC | | | OF CARE | | | | | | TESTS | | + + + + + + | BLOOD (UA | large | Negative | [facility] | | | DIP), POC | | | OF CARE | | | | | | TESTS | | + + + + + + | SPECIFIC | 1.015 | 1.005 - 1.03 | [facility] | | | GRAVITY (UA | | | OF CARE | | | DIP), POC | | | TESTS | | + + + + + + | KETONES (UA | neg | Negative mg/dL | [facility] | | | DIP), POC | | | OF CARE | | | | | | TESTS | | + + + + + + | BILIRUBIN | neg | Negative | [facility] | | | (UA DIP), | | | OF CARE | | | POC | | | TESTS | | + + + + + + | GLUCOSE (UA | neg | Negative to | [facility] | | | DIP), POC | | Trace mg/dL | OF CARE | | | | | | TESTS | | + + + + + + + + | Specimen | + + | Urine | + + + + + + + | Performing | Address | City/State/Zipcode | Phone Number | | Organization | | | | + + + + + | [facility] | [address] | [place], [place] | | | [facility] | [address] | [address] | | | TESTS | | | | + + + + + | [facility] | [address] | [place], [place] | | | TESTS | [address] | [address] | | + + + + + documented in this encounter Visit Diagnoses + + | Diagnosis | + + | Urolithiasis - Primary Urinary calculus, unspecified | + + documented in this encounter"
--- OUTSIDE RECORDS SUMMARY | ~2019-09-05 | XMS | Encounter Summary ---
Demographics + + + | Address | [address] | | | [place] [address] | + + + | Home Phone | | + + + | Preferred Language | Unknown | + + + | Marital Status | | + + + | Zoroastrian Affiliation | 1077 | + + + | Race | Unknown | + + + | Ethnic Group | Unknown | + + + Author + + + | Author | [facility] | | | and [place] | + + + | Organization | [facility] | | | and [...] [place] | | | | | [address] | | + + + + + | Najma Xiong | ECON | Unknown | | + + + + + | Hector Mack | ECON | [address] | | | | | [place] | | | | | [address] | | + + + + + Care Team Providers + +------+ + | Care Grain Shipper Name | Role | Phone | + +------+ + | Tuan Chan MD | PCP | | + +------+ + Reason for Visit +--------+ + | Reason | Comments | +--------+ + | Rash | | +--------+ + Encounter Details +--------+ + + + + | Date | Type | Department | Care Team | Description | +--------+ + + + + | 02/03/ | Emergency | [facility] | Kiana Nguyen | Rash and nonspecific | | 2018 | [facility] | C, WESTERN PHILOSOPHY PROFESSOR [address] | skin eruption | | | | CENTER [address] | [address] [place] | (Primary Dx); Severe | | | | [place] | [address] | uncontrolled | | | | [address] | | hypertension; | | | | [phone] | | Noncompliance with | | | | | | medication treatment | | | | | | due to underuse of | | | | | | medication | +--------+ + + + + Social History + +-------+ +--------+ + | Tobacco Use | Types | Packs/Day | Years | Date | | | | | Used | | + +-------+ +--------+ + | Current Every Day | | 0.25 | 20 | Quit: 04/13/1985 | | Smoker | | | | | + +-------+ +--------+ + + +---+---+---+ [...] + + + | Blood Pressure | 204/82 | 02/03/2018 10:30 AM | | | | | PST | | + + + + + | Pulse | 90 | 02/03/2018 10:30 AM | | | | | PST | | + + + + + | Temperature | 36.2 C (97.2 F) | 02/03/2018 10:30 AM | | | | | PST | | + + + + + | Respiratory Rate | 19 | 02/03/2018 10:30 AM | | | | | PST | | + + + + + | Oxygen Saturation | 100% | 02/03/2018 10:30 AM | | | | | PST | | + + + + + | Inhaled Oxygen | - | - | | | Concentration | | | | + + + + + | Weight | 72.6 kg (160 lb) | 02/03/2018 10:30 AM | | | | | PST | | + + + + + | Height | 162.6 cm (5' 4") | 02/03/2018 10:30 AM | | | | | PST | | + + + + + | Body Mass Index | 27.46 | 02/03/2018 10:30 AM | | | | | PST [...] | | 0 | | | | (K-KEIRY LLOYD) 10 | Daily. | | | | 9 | | MEQ ER tablet | | | | | | + + + +---------+ + + | triamcinolone | apply to affected | 453.6 g | 1 | 02/05/20 | | | (KENALOG) 0.1% | areas 4-5x per day | | | 18 | 8 | | ointmentIndications: | | | | | | | Rash and other | | | | | | | nonspecific skin | | | | | | | eruption | | | | | | + [...] [place] | | | | | | [address] | | | | | | | | +--------+---------+ + + + + +------+--------+ + + | Name | Type | Priori | Associated Diagnoses | Date/Time | | | | ty | | | + +------+--------+ + + | ED INFORMATION | GIOVANI | Routin | | 02/03/2018 10:27 AM | | EXCHANGE | | e | | PST | + +------+--------+ + + documented as of this encounter Procedures + +--------+ + + + | Procedure Name | Priori | Date/Time | Associated Diagnosis | Comments | | | ty | | | | + +--------+ + + + | ED INFORMATION | Routin | 02/03/2018 | | | | EXCHANGE | e | 10:27 AM | | | | | | PST | | | + +--------+ + + + +---+--------+ | | | | | Proced | | | ure | | | Note - | | | Samuel, | | | Lab In | | | | | | Hlseve | | | n - | | | | | | 2017 | | | 10:28 | | | AM PST | | | | | | Format | | | ting | | | of | | | this | | | note | | | might | | | be | | | differ | | | ent | | | from | | | the | | | origin | | | al.SAMUEL | | | E?NOTI | | | FICATI | | | ON? | | | 06/201 | | | 8 | | | 10:26? | | | [place] | | | BARNET | | | T, | | | GERMAINE | | | D?MRN: | | | | | | [id number] | | | [id number] | | | ecurit | | | y | | | Events | | | No | | | recent | | | | | | Securi | | | ty | | | Events | | | | | | curren | | | tly on | | | | | | fileED | | | Care | | | Guidel | | | inesTh | | | ere | | | are | | | curren | | | tly no | | | ED | | | Care | | | Guidel | | | ermelinda | | | in | | | GIOVANI | | | for | | | this | | | patien | | | t. | | | Please | | | check | | | your | | | facili | | | ty's | | | medica | | | l | | | record | | | s | | | system | | | .Crite | | | amanda | | | met | | | PDMP | | | 2 | | | Facili | | | ties | | | In 90 | | | Days | | | 5 | | | Visits | | | In | | | 365 | | | DaysCa | | | re | | | Provid | | | ersPro | | | vider | | | PRC | | | Type | | | Phone | | | Fax | | | Servic | | | e | | | Dates | | | CONKLI | | | N, | | | TUAN | | | LAWRENCE | | | D MD | | | LAWRENCE | | | D, MD | | | PC | | | Family | | | | | | Medici | | | ne | | | Curren | | | t | | | Conkli | | | n, | | | Tuan | | | R MD | | | Primar | | | y Care | | | | | | Curren | | | t | | | or_pra | | | xis | | | Case | | | or | | | Care | | | Manage | | | r | | | Curren | | | t | | | Care | | | Histor | | | yMedic | | | al/Carole | | | [email or web address] | | | /12/18 | | | 12:00 | | | AM | | | [facility] [place] [facility] | | [facility] | | | al | | | [facility] | | | spoke | | | with | | | patien | | | t PCP | | | office | | | . Dr | | | Conkli | | | n | | | schedu | | | led a | | | follow | | | up | | | visit | | | with | | | patien | | | t for | | | Javier | | | | | | 06/18/ | | | 18 @ | | | 1:00PM | | | . [facility] | | | | | | stated | | | the | | | concer | | | ns | | | with | | | her | | | fall | | | and to | | | have | | | her | | | medica | | | tions | | | review | | | ed for | | | fall | | | risks. | | | [facility] | | | was | | | not | | | able | | | to | | | contac | | | t | | | patien | | | t and | | | patien | | | t | | | voicem | | | ail is | | | full | | | and | | | can't | | | accept | | | | | | calls. | | | This | | | patien | | | t has | | | had 5 | | | or | | | more | | | Emerge | | | ncy | | | Depart | | | ment | | | visits | | | in | | | the | | | last | | | 12 | | | months | | | .? | | | Patien | | | t | | | requir | | | es | | | educat | | | ion on | | | the | | | scope | | | and | | | purpos | | | e of | | | the ED | | | as an | | | acute | | | care | | | provid | | | er not | | | a | | | Primar | | | y Care | | | | | | Provid | | | er and | | | | | | should | | | not | | | be | | | utiliz | | | ed for | | | | | | chroni | | | c | | | condit | | | ions.? | | | If | | | patien | | | t | | | return | | | s to | | | ED | | | please | | | | | | contac | | | t | | | Commun | | | ity | | | Health | | | | | | Worker | | | , | | | Lizz | | | at | | | [phone] | | .These | | | are | | | guidel | | | ermelinda | | | and | | | the | | | provid | | | er | | | should | | | | | | exerci | | | se | | | clinic | | | al | | | judgme | | | nt | | | when | | | provid | | | ing | | | care.R | | | ecent | | | Emerge | | | ncy | | | Depart | | | ment | | | Visit | | | Summar | | | yAdmit | | | Date | | | Facili | | | ty | | | City | | | State | | | Type | | | Major | | | Type | | | Diagno | | | ses or | | | Chief | | | | | | Compla | | | int | | | Nov 6, | | | 2018 | | | [facility] | | | [place] [facility] [place] | | [place] | | | Emerge | | | ncy | | | Emerge | | | ncy | | | rash | | | Oct | | | 6, | | | 2018 | | | [place] | | | a | | | [facility] | | | al H. | | | ENTER. | | | [place] | | | Emerge | | | ncy | | | Emerge | | | ncy | | | Rash | | | | | | Cellul | | | itis | | | of | | | chest | | | wall | | | Jose | | | 12, | | | 2018 | | | [facility] | | | [place] | | | [place] | | | [place] | | | [place] | | | Emerge | | | ncy | | | Emerge | | | ncy | | | | | | Abdomi | | | nal | | | Pain | | | | | | Person | | | with | | | feared | | | | | | health | | | | | | compla | | | int in | | | whom | | | no | | | diagno | | | sis is | | | made | | | Eliseo | | | 23, | | | 2018 | | | [facility] [place] | | | [facility] | | | [place] | | | [place] | | | Emerge | | | ncy | | | Emerge | | | ncy | | | Other | | | long | | | term | | | (curre | | | nt) | | | drug | | | therap | | | y | | | Other | | | chest | | | pain | | | [facility]o | | | 11, | | | 2018 | | | [facility] [place] | | | [facility] | | | [place] | | | [place] | | | Emerge | | | ncy | | | Emerge | | | ncy | | | | | | Person | | | al | | | histor | | | y of | | | transi | | | ent | | | ischem | | | ic | | | attack | | | | | | (TIA), | | | and | | | cerebr | | | al | | | infarc | | | tion | | | withou | | | t | | | residu | | | al | | | defici | | | ts | | | Other | | | long | | | term | | | (curre | | | nt) | | | drug | | | therap | | | y | | | Allerg | | | y | | | status | | | to | | | narcot | | | ic | | | agent | | | status | | | | | | Unspec | | | ified | | | fall, | | | initia | | | l | | | encoun | | | ter | | | | | | Pleuro | | | dynia | | | | | | Person | | | al | | | histor | | | y of | | | nicoti | | | ne | | | depend | | | ence | | | Recent | | | | | | Inpati | | | ent | | | Visit | | | [place]mar | | | yNo | | | record | | | ed | | | inpati | | | ent | | | visits | | | . E.D. | | | Visit | | | Count | | | (12 | | | mo.)Fa | | | cility | | | | | | Visits | | | | | | [facility] | | | a | | | [facility] | | | al | | | Hospit | | | al 1 | | | [facility] | [facility] | | | al 2 | | | [facility] [place] [facility] | [facility] y | | | Hospit | | | al 4 | | | Total | | | 7 | | | Note: | | | Visits | | | | | | indica | | | te | | | total | | | known | | | visits | | | . | | | PDMP | | | Report | | | Rx | | | Detail | | | s (6 | | | Mo.)Fi | | | ll | | | Date | | | Drug | | | Descri | | | ption | | | Qty. | | | Prescr | | | iber | | | CS MED | | | | | | 2018-0 | | | 9-19 | | | [place] | | | NE | | | SULF | | | ER 30 | | | MG | | | TABLET | | | 56 | | | TUAN | | | CONKLI | | | N, MD | | | 2 60 | | | 2018-0 | | | 9-19 | | | [place] | | | NE | | | SULF | | | ER 60 | | | MG | | | TABLET | | | 56 | | | TUAN | | | CONKLI | | | N, MD | | | 2 120 | | | 2018-0 | | | 9-19 | | | OXYCOD | | | ONE-AC | | | ETAMIN | | | OPHEN | | | 10-325 | | | 145 | | | TUAN | | | CONKLI | | | N, MD | | | 2 0 | | | 2018-0 | | | 8-20 | | | [place] | | | NE | | | SULF | | | ER 30 | | | MG | | | TABLET | | | 56 | | | TUAN | | | CONKLI | | | N, MD | | | 2 60 | | | 2018-0 | | | 8-20 | | | [place] | | | NE | | | SULF | | | ER 60 | | | MG | | | TABLET | | | 56 | | | TUAN | | | CONKLI | | | N, MD | | | 2 120 | | | 2018-0 | | | 8-20 | | | OXYCOD | | | ONE-AC | | | ETAMIN | | | OPHEN | | | 10-325 | | | 145 | | | TUAN | | | CONKLI | | | N, MD | | | 2 0 | | | 2018-0 | | | 7-16 | | | [place] | | | NE | | | SULF | | | ER 30 | | | MG | | | TABLET | | | 56 | | | TUAN | | | CONKLI | | | N, MD | | | 2 60 | | | 2018-0 | | | 7-16 | | | OXYCOD | | | ONE-AC | | | ETAMIN | | | OPHEN | | | 10-325 | | | 145 | | | TUAN | | | CONKLI | | | N, MD | | | 2 0 | | | 2018-0 | | | 7-16 | | | [place] | | | NE | | | SULF | | | ER 60 | | | MG | | | TABLET | | | 56 | | | TUAN | | | CONKLI | | | N, MD | | | 2 120 | | | 2018-0 | | | 6-24 | | | HYDROC | | | ODONE- | | | ACETAM | | | IN | | | 5-325 | | | MG 10 | | | ALEX | | | SLADE, | | | MD 2 | | | 25 | | | 2018-0 | | | 6-18 | | | OXYCOD | | | ONE-AC | | | ETAMIN | | | OPHEN | | | 10-325 | | | 145 | | | TUAN | | | CONKLI | | | N, MD | | | 2 0 | | | 2018-0 | | | 6-18 | | | [place] | | | NE | | | SULF | | | ER 30 | | | MG | | | TABLET | | | 56 | | | TUAN | | | CONKLI | | | N, MD | | | 2 60 | | | 2018-0 | | | 6-18 | | | [place] | | | NE | | | SULF | | | ER 60 | | | MG | | | TABLET | | | 56 | | | TUAN | | | CONKLI | | | N, MD | | | 2 120 | | | 2018-0 | | | 5-28 | | | [place] | | | NE | | | SULF | | | ER 60 | | | MG | | | TABLET | | | 56 | | | TUAN | | | CONKLI | | | N, MD | | | 2 120 | | | 2018-0 | | | 5-28 | | | OXYCOD | | | ONE-AC | | | ETAMIN | | | OPHEN | | | 10-325 | | | 145 | | | TUAN | | | CONKLI | | | N, MD | | | 2 0 | | | 2018-0 | | | 5-28 | | | [place] | | | NE | | | SULF | | | ER 30 | | | MG | | | TABLET | | | 56 | | | TUAN | | | CONKLI | | | N, MD | | | 2 60 | | | Rx | | | Summar | | | y (12 | | | Mo.)Me | | | tric | | | Count | | | CS | | | II-V | | | Rx 26 | | | CS-II | | | Rx 26 | | | Quanti | | | ty | | | Dispen | | | sed | | | 3,094 | | | Unique | | | | | | Prescr | | | ibers | | | 2 | | | Unique | | | | | | Pharma | | | cies 1 | | | | | | Benzos | | | 0 | | | Opioid | | | s 27 | | | Long | | | Acting | | | | | | Opioid | | | s 23 | | | The | | | above | | | inform | | | ation | | | is | | | provid | | | ed for | | | the | | | sole | | | purpos | | | e of | | | patien | | | t | | | treatm | | | ent. | | | Use of | | | this | | | inform | | | ation | | | beyond | | | the | | | terms | | | of | | | Data | | | Sharin | | | g | | | Memora | | | ndum | | | of | | | Unders | | | tandin | | | g and | | | Licens | | | e | | | Agreem | | | ent is | | | | | | prohib | | | ited. | | | In | | | certai | | | n | | | cases | | | not | | | all | | | visits | | | may | | | be | | | repres | | | ented. | | | | | | Consul | | | t the | | | aforem | | | ention | | | ed | | | facili | | | ties | | | for | | | additi | | | onal | | | inform | | | ation. | | | ? | | | 2017 | | | Colle[employer] | | | tive | | | Medica | | | l | | | [employer] | | | logies | | | , [employer] | | | - | | | [place] | | | [place] | | | [place], | | | [place] - | | | [email or web address] | | | ollect | | | ivemed | | | icalte | | | [email or web address] | | | | +---+--------+ documented in this encounter Visit Diagnoses + + | Diagnosis | + + | Rash and nonspecific skin eruption - Primary Rash and other nonspecific skin eruption | + + | Severe uncontrolled hypertension Unspecified essential hypertension | + + | Noncompliance with medication treatment due to underuse of medication Personal | | history of noncompliance with medical treatment, presenting hazards to health | + + documented in this encounter
--- OUTSIDE RECORDS SUMMARY | ~2019-09-05 | XMS | Encounter Summary ---
Demographics + + + | Address | [address] | | | [place] [address] | + + + | Home Phone | | + + + | Preferred Language | Unknown | + + + | Marital Status | | + + + | Moravian Affiliation | 1077 | + + + | Race | Unknown | + + + | Ethnic Group | Unknown | + + + Author + + + | Author | [facility] | | | and [place] | + + + | Organization | [facility] | | | and [...] [place] | | | | | [address] | | + + + + + | Najma Xiong | ECON | Unknown | | + + + + + | Hector Mack | ECON | [address] | | | | | [place] | | | | | [address] | | + + + + + Care Team Providers + +------+ + | Care Mercerizing Range Controller Name | Role | Phone | + +------+ + PCP | Unavailable | + +------+ + Encounter Details +--------+ + + + + | Date | Type | Department | Care Team | Description | +--------+ + + + + | 12/26/ | Hospital | [facility] | | | | 1991 | Encounter | MED [facility] LAB[facility] | | | | | | [address] | | | | | | [place] | | | | | | [address] | | | | | | [phone] | | | +--------+ + + + [...] [place] | | | | | | [id number] | | | | | | | | +--------+---------+ + + + documented as of this encounter Visit Diagnoses Not on filedocumented in this encounter"
--- OUTSIDE RECORDS SUMMARY | ~2019-09-05 | XMS | Encounter Summary ---
Demographics + + + | Address | [address] | | | [place] [address] | + + + | Home Phone | | + + + | Preferred Language | Unknown | + + + | Marital Status | | + + + | Orthodoxy Affiliation | PRO | + + + | Race | White | + + + | Ethnic Group | Not or | + + + Author + + + | Author | [facility] | + + + | Organization | [facility] | + + + | Address | Unknown | + + + | Phone | Unavailable | + + + Support + + + + + | Name | Relationship | Address | Phone | + + + + + | Hector Mack | ECON | [address] | | | | | [place] | | | | | [address] | | + + + + + Care Team Providers + +------+ + | Care Cook Helper Juice Name | Role | Phone | + +------+ + | Tuan Chan MD | PCP | | + +------+ + Encounter Details +--------+ + + + + | Date | Type | Department | Care Team | Description | +--------+ + + + + | 03/05/ | Documentati | Preoperative | Dia Gonzales, | | | 2010 | on | Medicine Clinic at | | | | | | [facility] [address] Day | | | | | | Stay [address] | | | | [address] | | | | | | Mailcode: [id number] | | | | | | [address] | | | | | | [address] [place], [place] | | | | | | [address] | | | | | | [phone] | | | +--------+ + + + [...]
--- OUTSIDE RECORDS SUMMARY | ~2019-09-05 | XMS | Encounter Summary ---
Demographics + + + | Address | [address] | | | [place] [address] | + + + | Home Phone | | + + + | Preferred Language | Unknown | + + + | Marital Status | | + + + | Zoroastrianism Affiliation | 1077 | + + + | Race | Unknown | + + + | Ethnic Group | Unknown | + + + Author + + + | Author | [facility] | | | and [place] | + + + | Organization | [facility] | | | and [...] [place] | | | | | [address] | | + + + + + | Najma Xiong | ECON | Unknown | | + + + + + | Hector Mack | ECON | [address] | | | | | [place] | | | | | [address] | | + + + + + Care Team Providers + +------+ + | Care Bundle Packer Name | Role | Phone | + +------+ + PCP | Unavailable | + +------+ + Encounter Details +--------+ + + + + | Date | Type | Department | Care Team | Description | +--------+ + + + + | 01/16/ | Hospital | [facility] | | | | 2000 | Encounter | MED CTR XRAY [address] | | | [address] | | | | | | [place] [address] | | | | | | [phone] | | | +--------+ + + + [...] [place] | | | | | | [address] | | | | | | | | +--------+---------+ + + + documented as of this encounter Visit Diagnoses Not on filedocumented in this encounter"
--- OUTSIDE RECORDS SUMMARY | ~2019-09-05 | XMS | Encounter Summary ---
Demographics + + + | Address | [address] | | | [place] [address] | + + + | Home Phone | | + + + | Preferred Language | Unknown | + + + | Marital Status | | + + + | Druze Affiliation | PRO | + + + | Race | White | + + + | Ethnic Group | Not or | + + + Author + + + | Author | [facility] | + + + | Organization | [facility] | + + + | Address | Unknown | + + + | Phone | Unavailable | + + + Support + + + + + | Name | Relationship | Address | Phone | + + + + + | Hector Mack | ECON | [address] | | | | | [place] | | | | | [address] | | + + + + + Care Team Providers + +------+ + | Care Caustic Room Attendant Name | Role | Phone | [...] | Activity | [address] | [address] | | | | | [address] Mailcode: [id number] | [place], [place] | | | | | [place], [place] | [address] | | | | | [address] | [phone] | | | | | [phone] | | | +--------+ + + + [...]
--- OUTSIDE RECORDS SUMMARY | ~2019-09-05 | XMS | Encounter Summary ---
Demographics + + + | Address | [address] | | | [place] [address] | + + + | Home Phone | | + + + | Preferred Language | Unknown | + + + | Marital Status | | + + + | Sabianist Affiliation | PRO | + + + | Race | White | + + + | Ethnic Group | Not or | + + + Author + + + | Author | [facility] | + + + | Organization | [facility] | + + + | Address | Unknown | + + + | Phone | Unavailable | + + + Support + + + + + | Name | Relationship | Address | Phone | + + + + + | Hector Mack | ECON | [address] | | | | | [place] | | | | | [address] | | + + + + + Care Team Providers + +------+ + | Care Supervisor [employer] Name | Role | Phone | + +------+ + | Tuan Chan MD | PCP | | + +------+ + Reason for Visit + + + | Reason | Comments | + + + | History and physical | Panniculectomy | | examination | | + + + AUTH/CERT +--------+--------+ + + + + | Status | Reason | Specialty | Diagnoses / | Referred By | Referred To | | | | | Procedures | Contact | Contact | +--------+--------+ + + + + | Closed | | | | | [facility] | | | | | | | Trans/Uro/Pl | | | | | | | [address] | | | | | | | [address] | | | | | | | [address] | | | | | | | [facility] | | | | | | | [facility] | | | | | | | [place], [place] | | | | | | | [address] | | | | | | | Phone: | | | | | | | [phone] | | | | | | | Fax: | | | | | | | [phone] | +--------+--------+ + + + + Encounter Details +--------+---------+ + + + | Date | Type | Department | Care Team | Description | +--------+---------+ + + + | 05/09/ | Office | Plastic and | Resident, Pls | Panniculitis | | 2008 | Visit | Reconstructive | [address] | (Primary Dx) | | | | Surgery at [facility] [address] | [place] [address] | | | | | [address] | | | | | | Mailcode: [facility] | | | | | | [facility] | | | | | | and Sonal, | | | | | | Building 1 | | | | | | Floor [place], [place] | | | | | | [address] | | | | | | [phone] | | | +--------+---------+ + + + [...] + + + | Blood Pressure | 137/63 | 05/09/2008 2:44 PM | | | | | PST | | + + + + + | Pulse | 60 | 05/09/2008 2:44 PM | | | | | PST | | + + + + + | Temperature | - | - | | + + + + + | Respiratory Rate | 18 | 05/09/2008 2:44 PM | | | | | PST | | + + + + + | Oxygen Saturation | 96% | 05/09/2008 2:44 PM | | | | | PST | | + + + + + | Inhaled Oxygen | - | - | | | Concentration | | | | + + + + + | Weight | 91.6 kg (202 lb) | 05/09/2008 2:44 PM | | | | | PST | | + + + + + | Height | 161.3 cm (5' 3.5") | 05/09/2008 2:44 PM | | | | | PST | | + + + + + | Body Mass Index | 35.22 | 05/09/2008 2:44 PM | | | | | PST | | + + + + + documented in this encounter Progress Notes Lang Pisano MD - 05/09/2008 3:24 PM PSTFormatting of this note might be different fro m the original. PLASTICS PREOPERATIVE H&P SUBJECTIVE History of Present Illness: Germaine Heard is a 62 y.o. female presents today in preparation for upcoming pannicul ectomy. Patient has been having difficulties with panniculitis. Past Medical History Diagnosis Date Unspecified Arthropathy, Site Unspecified Cor Athrscl-Uns Vessel stent 1.5 years ago. Other General Symptoms DM w/o Complication Type II Pure Hypercholesterolemia Symptomatic Menopausal or Female Climacteric States GERD (Gastroesophageal Reflux Disease) Sleep Apnea Past Surgical History Procedure Date Pr cabg, vein, four 7 years ago Hx appendectomy Hx cholecystectomy Hx tonsil and adenoidectomy Hx gastric bypass Allergies Allergen Reactions Codeine Hives and Rash Previous Illnesses: CAD, morbid obesity Family History Problem Relation Heart Mother Diabetes [...] tablets daily. TOPROL XL OR None Entered Review of Systems: General: fells well History Social History Marital Status: Spouse Name: N/A Number of Children: 1 Years of Education: N/A Occupational History [employer] Social History Main Topics Tobacco Use: Quit -- 3.0 packs/day for 20 years Quit date: 11/20/1988 Alcohol Use: No quit 18 years ago Drug Use: Not on file Sexually Active: Not on file Other Topics Concern Not on file Social History Narrative No narrative on file PHYSICAL EXAM Vitals: BP 137/63 | Pulse 60 | Resp 18 | Ht 1.613 m (5' 3.5") | Wt 91.627 kg (202 lb) | SpO 2 96% General Appearance: Well-developed, well-nourished adult female in no apparent distress. HEENT: Eyes: pupils equal, round, and reactive to light, extraocular movements intact bila terally. Ears: Tympanic membrane hensley and pearly with bony landmarks visible. Mouth: Oral mucosa pink and moist. Neck: Supple without lymphadenopathy. Thyroid not enlarged. Heart: rrr Lungs: cta Chest: Symmetric chest movements Abdomen: Soft, non-tender. Normoactive bowel sounds. Extremities: Warm and well-perfused. Neuro: Grossly intact Provisional Diagnosis: Panniculitis Planned Course of Action Patient is scheduled for panniculectomy on 05/10/[address] Edith Blackburn. Physical Activit y Readiness Questionnaire (PARQ) discussion held and written consent for surgery obtained. Patient will proceed to PAT (Preadmission Testing) clinic for further presurgical evaluation and has been instructed to call the clinic with any questions prior to surgery. Scripts were given for pain meds. documented in this en counter Plan of Treatment Not on filedocumented as of this encounter Visit Diagnoses + + | Diagnosis | + + | Panniculitis - Primary Panniculitis, unspecified site | + + documented in this encounter
--- OUTSIDE RECORDS SUMMARY | ~2019-09-05 | XMS | Encounter Summary ---
Demographics + + + | Address | [address] | | | [place] [address] | + + + | Home Phone | | + + + | Preferred Language | Unknown | + + + | Marital Status | | + + + | Protestant Affiliation | PRO | + + + | Race | White | + + + | Ethnic Group | Not or | + + + Author + + + | Author | [facility] | + + + | Organization | [facility] | + + + | Address | Unknown | + + + | Phone | Unavailable | + + + Support + + + + + | Name | Relationship | Address | Phone | + + + + + | Hector Mack | ECON | [address] | | | | | [place] | | | | | [address] | | + + + + + Care Team Providers + +------+ + | Care Tower Excavator Operator Name | Role | Phone | + +------+ + | Tuan Chan MD | PCP | | + +------+ + Reason for Referral PROC - Inpatient Surgery (Routine) +--------+--------+ + + + + | Status | Reason | Specialty | Diagnoses / | Referred By | Referred To | | | | | Procedures | Contact | Contact | +--------+--------+ + + + + | Closed | | Plastic | Diagnoses | Alexey | Annie | | | | Surgery | | Aysha Crow | Gen/Recon | | | | | Panniculitis | [address] | [facility] [address] | | | | | Procedures | [address] | [address] | | | | | CONSULT TO | [place], [place] | Mailcode: | | | | | [place] | [address] | [facility] | | | | | SKIN ABD IN | | for Health | | | | | REDUCTION | | and Healing, | | | | | OF LARGE | | Building 1, | | | | | BREAST | | 5th Floor | | | | | Procedure to | | [place], [place] | | | | | be | | [address] | | | | | performed: | | Phone: | | | | | breast | | [phone] | | | | | reduction | | | | | | | and | | | | | | | panniculecto | | | | | | | my Body | | | | | | | Part: trunk | | | | | | | CPT Code: | | | | | | | Excise | | | | | | | excess skin | | | | | | | tissue, | | | | | | | abdomen | | | | | | | (30817) and | | | | | | | Reduction of | | | | | | | large | | | | | | | breast | | | | | | | ([id number]) | | | +--------+--------+ + + + + Encounter Details +--------+---------+ + + + | Date | Type | Department | Care Team | Description | +--------+---------+ + + + | 02/18/ | Office | Plastic and | Gia Amin, | Panniculitis | | 2006 | Visit | Reconstructive | MD [address] | (Primary Dx) | | | | Surgery at [facility] [address] | [place], [place] | | | | | [address] | [address] | | | | | Mailcode: [facility] | [phone] | | | | | [facility] | | | | | | and Healing, | | | | | | Building 1, 5th | | | | | | Floor [facility] [place] | | | | | | [address] | | | | | | [phone] | | | +--------+---------+ + + + [...] + + + | Blood Pressure | 135/64 | 02/18/2007 1:58 PM | | | | | PST | | + + + + + | Pulse | 61 | 02/18/2007 1:58 PM | | | | | PST | | + + + + + | Temperature | - | - | | + + + + + | Respiratory Rate | - | - | | + + + + + | Oxygen Saturation | 98% | 02/18/2007 1:58 PM | | | | | PST | | + + + + + | Inhaled Oxygen | - | - | | | Concentration | | | | + + + + + | Weight | 91.3 kg (201 lb 4.8 | 02/18/2007 1:58 PM | | | | oz) | PST | | + + + + + | Height | - | - | | + + + + + | Body Mass Index | 34.55 | 05/05/2006 11:49 AM | | | | | PST | | + + + + + documented in this encounter Progress Notes Gia Amin - 02/18/2007 3:00 PM PSTFormatting of this note might be different from yosvany hernández. MASTOPEXY/ABDOMINOPLASTY CONSULT Subjective: Germaine ArteagaDennisFrederick comes in today interested in a cosmetic Abdominoplasty and Breast Reduction. She is a 61 y.o. female who weighs 201 pounds today, down from 325 pounds prior to her bar iatric surgery. She is s/p lap garry-e-y bypass in 2004. Patient's weight has been stable f or several months, which she is happy with. She is concerned with excess adipose tissue and loose skin of the abdomen. Prior abdominal surgeries include cholecystectomy (1969) and angelo endectomy (1949). Pt is also s/p 4v CABG in 1998. Past Medical History Diagnosis Date Unspecified Arthropathy, Site Unspecified Cor Athrscl-Uns Vessel stent 1.5 years ago. Other General Symptoms DM w/o Complication Type II Pure Hypercholesterolemia Symptomatic Menopausal or Female Climacteric States GERD (Gastroesophageal Reflux Disease) Sleep Apnea Past Surgical History Procedure Date Pr cabg, vein, four 7 years ago Hx appendectomy Hx cholecystectomy Hx tonsil and adenoidectomy Allergies Allergen Reactions Codeine Current outpatient prescriptions Medication Sig Metaxalone (SKELAXIN) 800 mg Oral [...] needed for pain MORPHINE OR None Entered Social history: History Substance Use Topics Tobacco Use: Quit -- 3.0 packs/day for 20 years Quit date: 11/20/1988 Alcohol Use: Yes quit 18 years ago Occupation: unemployed, lives in [place] Family History Problem Relation Heart Mother Diabetes Mother Heart Brother CHF Review of Systems: Hx of staph infection after CABG requiring opening of sternotomy wound Physical Examination: Vitals: BP 135/64 | Pulse 61 | Wt 91.309 kg (201 lbs 4.8 oz) | SpO2 98% General: Obese female with very poor hygiene, malodorous. Right Breast: Sternal notch to nipple distance: 36 Breast width: 17 Mid-line to nipple: 12 Ptosis: grade 3 - 13cm down Left Breast: Sternal notch to nipple distance: 34.5 Breast width: 16 Mid-line to nipple: 11 Ptosis: Grade 3 - 10cm down Chest: 16x2cm median sternotomy scar widened dentrally and distally Abdomen: Abd pannus with diffuse striae. There is severe mons pubis ptosis. Abdomen is no ntender to palpation and without masses. Severe musculofascial laxity. Scars: 22cm RLQ scar, crosses midline, mult laparoscopy scars Diastasis: severe diastasis recti Skin: multiple large patches of papular, crusty rash under breasts, on back, and across low er abdomen Assessment : Germaine Heard would likely benefit from an abdominoplasty and mastopexy . She has multiple medical problems including diabetes and a chronic diffuse papular rash i n the surgical sites. I think she is at significant risk of complications. She has a numbe r of scars making undermining of her abdominal wall risky and I would therefore recommend pa nniculectomy. If she desires a breast reduction I would anticipate removal of ~ 300 gm per side. Plan: --Patient will followup with retail office associate, who will re-evaluate her rash prior to proceedi ng with breast surgery. Requested that derm forward their note to us. --Our division sergeant will provide the patient with a key quote for abdominoplasty, mas topexy, and face lift. --Pt will contact us when dermatologically-cleared and ready to schedule. documented in this encoun ter Plan of Treatment Not on filedocumented as of this encounter Visit Diagnoses + + | Diagnosis | + + | Panniculitis - Primary Panniculitis, unspecified site | + + documented in this encounter"
--- OUTSIDE RECORDS SUMMARY | ~2019-09-05 | XMS | Encounter Summary ---
Demographics + + + | Address | [address] | | | [place] [address] | + + + | Home Phone | | + + + | Preferred Language | Unknown | + + + | Marital Status | | + + + | Holiness Affiliation | 1077 | + + + | Race | Unknown | + + + | Ethnic Group | Unknown | + + + Author + + + | Author | [facility] | | | and [place] | + + + | Organization | [facility] | | | and [...] [place] | | | | | [address] | | + + + + + | Najma Xiong | ECON | Unknown | | + + + + + | Hector Mack | ECON | [address] | | | | | [place] | | | | | [address] | | + + + + + Care Team Providers + +------+ + | Care Die Storage Worker Name | Role | Phone | + +------+ + PCP | Unavailable | + +------+ + Encounter Details +--------+ + + + + | Date | Type | Department | Care Team | Description | +--------+ + + + + | 07/07/ | Hospital | [facility] | Isaias Ramirez, | | | 1996 | Encounter | MED CTR XRAY [address] | MD [address] | | | | | [place] | [place] | | | | | [place] [address] | [address] | | | | | [phone] | | | +--------+ + + + [...]
--- OUTSIDE RECORDS SUMMARY | ~2019-09-05 | XMS | Encounter Summary ---
Demographics + + + | Address | [address] | | | [place] [address] | + + + | Home Phone [...] + + + | Author | [facility] | + + + | Organization | [facility] | + + + | Address | Unknown | + + + | Phone | Unavailable | + + + Support + + + + + | Name | Relationship | Address | Phone | + + + + + | Hector Mack | ECON | [address] | | | | | [place] | | | | | [address] | | + + + + + Care Team Providers + +------+ + | Care Outreach Professional Name | Role | Phone | + [...] Isaiah | | | | | at [facility] | [facility] | | | | | [address] | [place] [address] | | | | | [address] | | | | | | [place], [address] [place] [address] | | | | | | [place], [place] | | | | | | [address] | | | | | | [phone] | | | +--------+ + + + [...] view image for the detailed interpretation from [employer] results. | CARDIOLOGY | + + + + + + + + | Performing | Address | City/State/Zipcode | Phone Number | | Organization | | | | + + + + + | [facility] | [address] | [place], [place] | | | CARDIOLOGY | [facility] | [address] | | + + + + + documented in this encounter Visit Diagnoses Not on filedocumented in this encounter"
--- OUTSIDE RECORDS SUMMARY | ~2019-09-05 | XMS | Encounter Summary ---
Demographics + + + | Address | [address] | | | [place] [address] | + + + | Home Phone | | + + + | Preferred Language | Unknown | + + + | Marital Status | | + + + | Jewish Affiliation | 1077 | + + + | Race | Unknown | + + + | Ethnic Group | Unknown | + + + Author + + + | Author | [facility] | | | and [place] | + + + | Organization | [facility] | | | and [...] [place] | | | | | [address] | | + + + + + | Najma Xiong | ECON | Unknown | | + + + + + | Hector Mack | ECON | [address] | | | | | [place] | | | | | [address] | | + + + + + Care Team Providers + +------+ + | Care Systems Administration Analyst Name | Role | Phone | + +------+ + PCP | Unavailable | + +------+ + Encounter Details +--------+ + + + + | Date | Type | Department | Care Team | Description | +--------+ + + + + | 07/03/ | Hospital | [facility] | | | | 1999 | Encounter | MED CTR EMERGENCY | | | | | | CENTER [address] | | | | | | [place] | | | | | | [address] | | | | | | [phone] | | | +--------+ + + + [...] [place] | | | | | | [id number] | | | | | | | | +--------+---------+ + + + documented as of this encounter Visit Diagnoses Not on filedocumented in this encounter"
--- OUTSIDE RECORDS SUMMARY | ~2019-09-05 | XMS | Encounter Summary ---
Demographics + + + | Address | [address] | | | [place] [address] | + + + | Home Phone | | + + + | Preferred Language | Unknown | + + + | Marital Status | | + + + | Confucianist Affiliation | 1077 | + + + | Race | Unknown | + + + | Ethnic Group | Unknown | + + + Author + + + | Author | [facility] | | | and [place] | + + + | Organization | [facility] | | | and [place] [...] [place] | | | | | [address] | | + + + + + | Najma Xiong | ECON | Unknown | | + + + + + | Hector Mack | ECON | [address] | | | | | [place] | | | | | [address] | | + + + + + Care Team Providers + +------+ + | Care Metal Hanger Name | Role | Phone | + +------+ + PCP | Unavailable | + +------+ + Encounter Details +--------+ + + + + | Date | Type | Department | Care Team | Description | +--------+ + + + + | 08/27/ | Hospital | [facility] | Duarte Moon MD | | | 2013 | Encounter | HOSPITAL RESPIRATORY | [address] | | | | | THERAPY [address] | [place] | | | | | [place] | [address] | | | | | [address] | | | | | | [phone] | | | +--------+ + + + [...]
--- OUTSIDE RECORDS SUMMARY | ~2019-09-05 | XMS | Encounter Summary ---
Demographics + + + | Address | [address] | | | [place] [address] | + + + | Home Phone [...] + + + | Author | [facility] | + + + | Organization | [facility] | + + + | Address | Unknown | + + + | Phone | Unavailable | + + + Support + + + + + | Name | Relationship | Address | Phone | + + + + + | Hector Mack | ECON | [address] | | | | | [place] | | | | | [address] | | + + + + + Care Team Providers + +------+ + | Care Internal Grinder Name | Role | Phone | + +------+ + | Tuan Chan MD | PCP | | + +------+ + Encounter Details +--------+------+ + + + | Date | Type | Department | Care Team | Description | +--------+------+ + + + | 03/11/ | Lab | Laboratory at [facility] | | Kidney stone | | 2010 | | [address] | | | | | | [place], [place] | | | | | | [address] | | | | | | [phone] | | | +--------+------+ + + + Social History + + [...] | + +--------+ + + + | [facility] - CBC ONLY | Routin | 03/11/2011 | Kidney stone | Results for this | | | e | 5:13 PM | | procedure are in the | | | | PST | | results section. | + +--------+ + + + | [facility] - BASIC | Routin | 03/11/2011 | Kidney stone | Results for this | | METABOLIC SET | e | 5:13 PM | | procedure are in the | | | | PST | | results section. | + +--------+ + + + documented in this encounter Results [facility] - BASIC METABOLIC SET (03/11/2011 5:13 PM PST) + + + + + + | Component | Value | Ref Range | Performed | Pathologist | | | | | At | Signature | + + + + + + | GLUCOSE-[facility] | 121 (H) | 60 - 99 mg/dL | [facility] | | | | | | DEPARTMENT | | | | | | OF | | | | | | PATHOLOGY | | + + + + + + | UREA | 14 | 6 - 20 mg/dL | [facility] | | | NITROGEN-CH | | | DEPARTMENT | | | H | | | OF | | | | | | PATHOLOGY | | + + + + + + | CREATININE- | 0.8 | 0.6 - 1.1 mg/dL | [facility] | | | [facility] | | | DEPARTMENT | | | | | | OF | | | | | | PATHOLOGY | | + + + + + + | SODIUM-[facility] | 145 (H) | 133 - 141 | [facility] | | | | | mmol/L | DEPARTMENT | | | | | | OF | | | | | | PATHOLOGY | | + + + + + + | POTASSIUM-C | 4.6Comment: New | 3.4 - 5.0 | [facility] | | | HH | Potassium reference | mmol/L | DEPARTMENT | | | | ranges effective | | OF | | | | 07/13/10. | | PATHOLOGY | | + + + + + + | CHLORIDE-[facility] | 103 | 97 - 104 mmol/L | [facility] | | | H | | | DEPARTMENT | | | | | | OF | | | | | | PATHOLOGY | | + + + + + + | CO2 | 27 | 24 - 30 mmol/L | [facility] | | | TOTAL-CHH | | | DEPARTMENT | | | | | | OF | | | | | | PATHOLOGY | | + + + + + + | CALCIUM-[facility] | 8.3 (L) | 8.8 - 10.9 | [facility] | | | | | mg/dL | DEPARTMENT | | | | | | OF | | | | | | PATHOLOGY | | + + + + + + + + | Specimen | + + | Blood - Blood | + + + + + | Narrative | Performed At | + + + | Test performed by: [facility] | [facility] | | Outpatient Lab [facility] [address] [place], [place] [address] | DEPARTMENT OF | | | PATHOLOGY | + + + + + + + + | Performing | Address | City/State/Zipcode | Phone Number | | Organization | | | | + + + + + | [facility] | [address] | [place] [address] | | | PATHOLOGY | [address] | | | + + + + + [facility] - CBC ONLY (03/11/2011 5:13 PM PST) + + + + + + | Component | Value | Ref Range | Performed | Pathologist | | | | | At | Signature | + + + + + + | WHITE CELL | See cmnt | 3.4 - 10.0 K/cu | [facility] | | | COUNT - [facility] | | mm | DEPARTMENT | | | | | | OF | | | | | | PATHOLOGY | | + + + + + + | RED CELL | See cmnt | 3.80 - 5.20 | [facility] | | | COUNT - [facility] | | M/cu mm | DEPARTMENT | | | | | | OF | | | | | | PATHOLOGY | | + + + + + + | HEMOGLOBIN, | See cmnt | 12.2 - 15.0 | [facility] | | | BLOOD - | | g/dL | DEPARTMENT | | | [facility] | | | OF | | | | | | PATHOLOGY | | + + + + + + | HEMATOCRIT | See cmnt | 37.0 - 46.5 % | [facility] | | | - [facility] | | | DEPARTMENT | | | | | | OF | | | | | | PATHOLOGY | | + + + + + + | MCV - [facility] | See cmnt | 85.0 - 95.0 fL | [facility] | | | | | | DEPARTMENT | | | | | | OF | | | | | | PATHOLOGY | | + + + + + + | MCH - [facility] | See cmnt | 29.0 - 32.0 pg | [facility] | | | | | | DEPARTMENT | | | | | | OF | | | | | | PATHOLOGY | | + + + + + + | MCHC - [facility] | See cmnt | 32.6 - 33.9 | [facility] | | | | | g/dL | DEPARTMENT | | | | | | OF | | | | | | PATHOLOGY | | + + + + + + | RDW-[facility] | See cmnt | 11.5 - 15.0 % | [facility] | | | | | | DEPARTMENT | | | | | | OF | | | | | | PATHOLOGY | | + + + + + + | PLATELET | See cmnt | 150 - 420 K/cu | [facility] | | | COUNT, | | mm | DEPARTMENT | | | BLOOD - [facility] | | | OF | | | | | | PATHOLOGY | | + + + + + + | MPV-[facility] | See cmnt | 7.4 - 10.4 fL | [facility] | | | | | | DEPARTMENT | | | | | | OF | | | | | | PATHOLOGY | | + + + + + + + + | Specimen | + + | Blood - Blood | + + + + + | Narrative | Performed At | + + + | Test performed by: [facility] | [facility] | | Outpatient Lab [facility] [address] [place], [place] [address] | DEPARTMENT OF | | Sent to [facility]. | PATHOLOGY | + + + + + + + + | Performing | Address | City/State/Zipcode | Phone Number | | Organization | | | | + + + + + | [facility] DEPARTMENT | [address] | [place] [address] | | | PATHOLOGY | [address] | | | + + + + + documented in this encounter Visit Diagnoses + + | Diagnosis | + + | Kidney stone Calculus of kidney | + + documented in this encounter"
--- OUTSIDE RECORDS SUMMARY | ~2019-09-05 | XMS | Encounter Summary ---
Demographics + + + | Address | [address] | | | [place] [address] | + + + | Home Phone | | + + + | Preferred Language | Unknown | + + + | Marital Status | | + + + | Mu-Ism Affiliation | 1077 | + + + | Race | Unknown | + + + | Ethnic Group | Unknown | + + + Author + + + | Author | [facility] | | | and [place] | + + + | Organization | [facility] | | | and [...] [place] | | | | | [address] | | + + + + + | Najma Xiong | ECON | Unknown | | + + + + + | Hector Mack | ECON | [address] | | | | | [place] | | | | | [address] | | + + + + + Care Team Providers + +------+ + | Care Teleservices Representative Name | Role | Phone | + +------+ + PCP | Unavailable | + +------+ + Encounter Details +--------+ + + + + | Date | Type | Department | Care Team | Description | +--------+ + + + + | 11/28/ | Hospital | [facility] | Pramod Enriquez MD | | | 1998 - | Encounter | MED CTR ICU [address] | [address] | | | | | [place], | [place], [place] | | | | | [place] [address] | [address] | | | 1998 | | [phone] | | | +--------+ + + + [...]
--- OUTSIDE RECORDS SUMMARY | ~2019-09-05 | XMS | Encounter Summary ---
Demographics + + + | Address | [address] | | | [place] [address] | + + + | Home Phone | | + + + | Preferred Language | Unknown | + + + | Marital Status | | + + + | Orthodoxy Affiliation | 1077 | + + + | Race | Unknown | + + + | Ethnic Group | Unknown | + + + Author + + + | Author | [facility] | | | and [place] | + + + | Organization | [facility] | | | and [place] [...] [place] | | | | | [address] | | + + + + + | Najma Xiong | ECON | Unknown | | + + + + + | Hector Mack | ECON | [address] | | | | | [place] | | | | | [address] | | + + + + + Care Team Providers + +------+ + | Care Epic Ambulatory Analysts Name | Role | Phone | + +------+ + PCP | Unavailable | + +------+ + Encounter Details +--------+ + + + + | Date | Type | Department | Care Team | Description | +--------+ + + + + | 12/11/ | Hospital | [facility] | | | | 1997 - | Encounter | MED CTR GENERIC OP | | | | | | CONV DEPT [address] | | | | 01/24/ | | [place], | | | | 1997 | | [place] [address] | | | | | | [phone] | | | +--------+ + + + [...]
--- OUTSIDE RECORDS SUMMARY | ~2019-09-05 | XMS | Encounter Summary ---
Demographics + + + | Address | [address] | | | [place] [address] | + + + | Home Phone [...] [place] | | | | | [address] | | + + + + + Care Team Providers + +------+ + | Care Manager Video Name | Role | Phone | + [...] Description | +--------+---------+ + + + | 09/01/ | Office | [facility] | Herberth Ayala, | Obesity (Primary Dx) | | 2006 | Visit | Center [address] | | | | | | [place] Mailcode: CH4S | | | | | | [facility] | | | | | | and [place], | | | | | | Building [address], [address]th | | | | | | Floor [place], [place] | | | | | | [address] | | | | | | [phone] | | | +--------+---------+ + + + [...] + + + | Blood Pressure | 136/82 | 09/01/2006 11:28 AM | | | | | PDT | | + + + + + | Pulse | 72 | 09/01/2006 11:28 AM | | | | | PDT | | + + + + + | Temperature | 36.7 C (98 F) | 09/01/2006 11:28 AM | | | | | PDT | | + + + + + | Respiratory Rate | 16 | 09/01/2006 11:28 AM | | | | | PDT | | + + + + + | Oxygen Saturation | - | - | | + + + + + | Inhaled Oxygen | - | - | | | Concentration | | | | + + + + + | Weight | 99.7 kg (219 lb 12.8 | 09/01/2006 11:28 AM | | | | oz) | PDT | | + + + + + | Height | - | - | | + + + + + | Body Mass Index | 37.73 | 05/05/2006 11:49 AM | | | | | PST | | + + + + + documented in this encounter Progress Notes Herberth Ayala - 09/01/2006 11:41 AM PDTDoing great 6 mos after myotomy+GBP. No N, V, dys , AP, C, D, HB, taking all supps, wlaking for exercise. Doing great, RTC ~6 mos.Electronical ly signed by Herberth Ayala at 09/01/2006 11:41 AM PDTdocumented in this encounter Plan of Treatment Not on filedocumented as of this encounter Visit Diagnoses + + | Diagnosis | + + | Obesity - Primary Obesity, unspecified | + + documented in this encounter"
--- OUTSIDE RECORDS SUMMARY | ~2019-09-05 | XMS | Encounter Summary ---
Demographics + + + | Address | [address] | | | [place] [address] | + + + | Home Phone [...] Author | [facility] | | | and [place] | + + + | Organization | [facility] | | | and [...] [place] | | | | | [address] | | + + + + + | Najma Xiong | ECON | Unknown | | + + + + + | Hector Mack | ECON | [address] | | | | | [place] | | | | | [address] | | + + + + + Care Team Providers + +------+ + | Care Ingredient Scaler Helper Name | Role | Phone | + +------+ + PCP | Unavailable | + +------+ + Encounter Details +--------+ + + + + | Date | Type | Department | Care Team | Description | +--------+ + + + + | 01/06/ | Hospital | [facility] | | | | 1991 | Encounter | MED CTR XRAY [address] | | | | | | [place] | | | | | | [place] [address] | | | | | | [phone] | | | +--------+ + + + [...] [place] | | | | | | [address] | | | | | | | | +--------+---------+ + + + documented as of this encounter Visit Diagnoses Not on filedocumented in this encounter"
--- OUTSIDE RECORDS SUMMARY | ~2019-09-05 | XMS | Encounter Summary ---
Demographics + + + | Address | [address] | | | [place] [address] | + + + | Home Phone [...] [place] | | | | | [address] | | + + + + + Care Team Providers + +------+ + | Care Painter Rough Name | Role | Phone | + [...] (Primary Dx) | | 2006 | | [place] [address] Hermila Powell MD | | | | | [place] Mailcode: CH4S | | | | | | [facility] | | | | | | and Healing, | | | | | | Building [address], [address]th | | | | | | Floor [place], [place] | | | | | | [address] | | | | | | [phone] | | | +--------+ + + + [...] Performed At | + + + | [id number] Estimated GFR = 60 mL/min/1.73 sq m if non- | [facility] | | [id number] Estimated GFR > 60 mL/min/1.73 sq m [...] + + | Performing | Address | City/State/[facility] | Phone Number | | Organization | | | | + + + + + | [facility] | [address] | [place] [address] | | | PATHOLOGY | [address] | | | + + + + + | [facility] DEPARTMENT OF | [address] | [place] [address] | | | PATHOLOGY | [address] [...] DEPARTMENT OF | [address] | [place] [address] | | | PATHOLOGY | [address] | | | + + + + + | [facility] | [address] | [place] [address] | | | PATHOLOGY | [address] | | | + + + + + documented in this encounter Visit Diagnoses + + | Diagnosis | + + | Obesity - Primary Obesity, unspecified | + + documented in this encounter"
--- OUTSIDE RECORDS SUMMARY | ~2019-09-05 | XMS | Encounter Summary ---
Demographics + + + | Address | [address] | | | [place] [address] | + + + | Home Phone [...] [place] | | | | | [address] | | + + + + + Care Team Providers + +------+ + | Care Rn Occupational Health Name | Role | Phone | + [...] | | | | Surgery at [facility] [address] | | | | | | [address] | | | | | | Mailcode: [facility] | | | | | | [facility] | | | | | | and Healing, | | | | | | Building 1, | | | | | | Floor [place], [place] | | | | | | [address] | | | | | | [phone] | | | +--------+---------+ + + + [...] La Cruz MD - 06/08/2008 10:23 AM PDTSuguillermo ctive: Germaine Heard presents 1 months status post panniculectomy with [...]
--- OUTSIDE RECORDS SUMMARY | ~2019-09-05 | XMS | Encounter Summary ---
Demographics + + + | Address | [address] | | | [place] [address] | + + + | Home Phone | | + + + | Preferred Language | Unknown | + + + | Marital Status | | + + + | Oriental Orthodox Affiliation | 1077 | + + + | Race | Unknown | + + + | Ethnic Group | Unknown | + + + Author + + + | Author | [facility] | | | and [place] | + + + | Organization | [facility] | | | and [place] [...] [place] | | | | | [address] | | + + + + + | Najma Xiong | ECON | Unknown | | + + + + + | Hector Mack | ECON | [address] | | | | | [place] | | | | | [address] | | + + + + + Care Team Providers + +------+ + | Care Supervising Editor Trailer Name | Role | Phone | + +------+ + PCP | Unavailable | + +------+ + Encounter Details +--------+ + + + + | Date | Type | Department | Care Team | Description | +--------+ + + + + | 07/25/ | Hospital | [facility] | | | | 1996 | Encounter | MED CTR EMERGENCY | | | | | | CENTER [address] | | | | | | [place] | | | | | | [address] | | | | | | [phone] | | | +--------+ + + + [...] [place] | | | | | | [id number] | | | | | | | | +--------+---------+ + + + documented as of this encounter Visit Diagnoses Not on filedocumented in this encounter"
--- OUTSIDE RECORDS SUMMARY | ~2019-09-05 | XMS | Encounter Summary ---
Demographics + + + | Address | [address] | | | [place] [address] | + + + | Home Phone | | + + + | Preferred Language | Unknown | + + + | Marital Status | | + + + | Jainism Affiliation | 1077 | + + + | Race | Unknown | + + + | Ethnic Group | Unknown | + + + Author + + + | Author | [facility] | | | and [place] | + + + | Organization | [facility] | | | and [place] [...] [place] | | | | | [address] | | + + + + + | Najma Xiong | ECON | Unknown | | + + + + + | Hector Mack | ECON | [address] | | | | | [place] | | | | | [address] | | + + + + + Care Team Providers + +------+ + | Care Lead Software Tester Name | Role | Phone | + +------+ + PCP | Unavailable | + +------+ + Encounter Details +--------+ + + + + | Date | Type | Department | Care Team | Description | +--------+ + + + + | 02/25/ | Hospital | [facility] | Colton Long, | | | 2000 | Encounter | MED CTR LABORATORY | [address] | | | | | [address] | [place] | | | | | [place] | [address] | | | | | [address] | | | | | | [phone] | | | +--------+ + + + [...]
--- OUTSIDE RECORDS SUMMARY | ~2019-09-05 | XMS | Encounter Summary ---
Demographics + + + | Address | [address] | | | [place] [address] | + + + | Home Phone | | + + + | Preferred Language | Unknown | + + + | Marital Status | | + + + | Druze Affiliation | 1077 | + + + | Race | Unknown | + + + | Ethnic Group | Unknown | + + + Author + + + | Author | [facility] | | | and [place] | + + + | Organization | [facility] | | | and [...] [place] | | | | | [address] | | + + + + + | Najma Xiong | ECON | Unknown | | + + + + + | Hector Mack | ECON | [address] | | | | | [place] | | | | | [address] | | + + + + + Care Team Providers + +------+ + | Care Overhead Cleaner Maintainer Name | Role | Phone | + +------+ + PCP | Unavailable | + +------+ + Encounter Details +--------+ + + + + | Date | Type | Department | Care Team | Description | +--------+ + + + + | 04/05/ | Hospital | [facility] | | | | 1996 - | Encounter | MED CTR MED ONC | | | | | | [address] | | | | 04/09/ | | [place] [address] | | | | 1996 | | [phone] | | | +--------+ + + + [...] [place] | | | | | | [id number] | | | | | | | | +--------+---------+ + + + documented as of this encounter Visit Diagnoses Not on filedocumented in this encounter"
--- OUTSIDE RECORDS SUMMARY | ~2019-09-05 | XMS | Encounter Summary ---
Demographics + + + | Address | [address] | | | [place] [address] | + + + | Home Phone [...] + | Organization | [facility] | | | and [place] [...] [place] | | | | | [address] | | + + + + + | Najma Xiong | ECON | Unknown | | + + + + + | Hector Mack | ECON | [address] | | | | | [place] | | | | | [address] | | + + + + + Care Team Providers + +------+ + | Care Mathematics Academic Chair Name | Role | Phone | + +------+ + PCP | Unavailable | + +------+ + Encounter Details +--------+ + + + + | Date | Type | Department | Care Team | Description | +--------+ + + + + | 11/10/ | Hospital | [facility] | Oralia Quinonez | | | 2011 | Encounter | HOSPITAL GROUND | [address] | | | | | [address] [place] | [place] [address] | | | | | [place], [place] | [phone] | | | | | [address] | | | | | | [phone] | | | +--------+ + + + [...]
--- OUTSIDE RECORDS SUMMARY | ~2019-09-05 | XMS | Encounter Summary ---
Demographics + + + | Address | [address] | | | [place] [address] | + + + | Home Phone [...] [place] | | | | | [address] | | + + + + + Care Team Providers + +------+ + | Care Warrant Server Name | Role | Phone | + [...] Dx); | | | | Surgery at [facility] [address] | | Intertrigo; CAD | | | | [address] | | (Coronary Artery | | | | Mailcode: [facility] | | Disease); DM Circ | | | | [facility] | | Dis Type II, | | | | and Healing, | | Uncontrolled ([facility]) | | | | Building 1 | | | | | | Floor [place], [place] | | | | | | [address] | | | | | | [phone] | | | +--------+---------+ + + + [...] surgeries scheduled [place] at the [facility]: Surgeries scheduled in the [facility] ( North): registration is located on the 4th floor of [facility] (Day Surgery). Surgeries scheduled in the [facility]: registration is located on the 9th floor. Surgeries scheduled in [facility]: registration is located on the 6th floor. Surgeries scheduled in the [facility]: registration is located i n the [facility] on the first floor. For surgeries scheduled to take place at the [facility]: registration is l ocated on the 4th [...] Accession | | | | | | #:[id number] | | | | | | and MLO view(s) were | | | | | | taken.The breast tissue | | | | | | is almost entirely fat . | | | | | | No significantmasses, | | | | | | [...] | | | | | | dedicated Hologic System | | | | | | with R2 CAD. Performed | | | | | | at [facility] | | | | | | Science | | | | | | [place].ASSESSMENT: | | | | | | Negative [...] | + + + + + | [facility] | [address] [place] [address] | [place] [address] | | | PATHOLOGY | [address] | | | + + + + + | [facility] | [address] [place] [address] [address] | [place] [address] | | | PATHOLOGY | [address] [...] | [facility] | | | | APTT Therapeutic Range | seconds | DEPARTMENT | | | | | | OF | | | | (75-120) | | PATHOLOGY | | | | sec | | [...] | + + + + + | [facility] DEPARTMENT | [address] | [place] [address] | | | PATHOLOGY | [address] | | | + + + + + | [facility] | [address] | [place] [address] | | | PATHOLOGY | [address] [...] | + + + + + | [facility] | [address] | [place] [address] | | | PATHOLOGY | [address] | | | + + + + + | [facility] | [address] | [place] [address] | | | PATHOLOGY | [address] [...] Performed At | + + + | [id number] Estimated GFR > 60 mL/min/1.73 sq m if non- | [facility] | | English [id number] Estimated GFR > 60 mL/min/1.73 sq m if | DEPARTMENT OF | | English GFR is estimated using the MDRD equation [...] | | - Rapidly changing kidney function New Creatinine Reference | | | ranges effective 12/02/07. | | + + + + + + + + | Performing | Address | City/[facility]/Zipcode | Phone Number | | Organization | | | | + + + + + | [facility] DEPARTMENT | [address] [place] [address] | [place] [address] | | | PATHOLOGY | [address] | | | + + + + + | [facility] | [address] | [place] [address] | | | PATHOLOGY | [address] [...] + + | [facility] DEPARTMENT OF | [address] | [place] [address] | | | PATHOLOGY | [address] | | | + + + + + | [facility] | [address] | [place] [address] | | | PATHOLOGY | [address] | | | + + + + + documented in this encounter Visit Diagnoses + + | Diagnosis | + + | Panniculitis - Primary Panniculitis, unspecified site | + + | Intertrigo Other specified erythematous condition | + + | CAD (coronary artery disease) Coronary atherosclerosis of unspecified type of vessel, | | [place] or graft | + + | Type II or unspecified type diabetes mellitus with peripheral circulatory disorders, | | uncontrolled(250.72) Type II or unspecified type diabetes mellitus with peripheral | | circulatory disorders, uncontrolled | + + documented in this encounter
--- OUTSIDE RECORDS SUMMARY | ~2019-09-05 | XMS | Encounter Summary ---
Demographics + + + | Address | [address] | | | [place] [address] | + + + | Home Phone | | + + + | Preferred Language | Unknown | + + + | Marital Status | | + + + | Nondenominational Affiliation | PRO | + + + | Race | White | + + + | Ethnic Group | Not or | + + + Author + + + | Author | [facility] | + + + | Organization | [facility] | + + + | Address | Unknown | + + + | Phone | Unavailable | + + + Support + + + + + | Name | Relationship | Address | Phone | + + + + + | Hector Brownlee | ECON | [address] | | | | | [place] | | | | | [address] | | + + + + + Care Team Providers + +------+ + | Care Architectural Design Professor Name | Role | Phone | + +------+ + | Tuan Chan MD | PCP | | + +------+ + Reason for Visit AUTH/CERT +--------+--------+ + + + + | Status | Reason | Specialty | Diagnoses / | Referred By | Referred To | | | | | Procedures | Contact | Contact | +--------+--------+ + + + + | Closed | | | | | [facility] | | | | | | | Trans/Uro/Pl | | | | | | | [address] | | | | | | | [address] | | | | | | | [place] [address] | | | | | | | [facility] | | | | | | | [facility] | | | | | | | [place], [place] | | | | | | | [address] | | | | | | | Phone: | | | | | | | [phone] | | | | | | | Fax: | | | | | | | [phone] | +--------+--------+ + + + + Encounter Details +--------+ + + + + | Date | Type | Department | Care Team | Description | +--------+ + + + + | 05/10/ | Hospital | [facility] [address] | Aysha Blackburn | | | 2008 - | Encounter | [address] Andre Crow MD | | | | | [id number] | | | | 05/11/ | | [place], | | | | 2008 | | [place] [address] | | | +--------+ + + + [...] + + + | Blood Pressure | 116/56 | 05/11/2008 7:37 AM | | | | | PST | | + + + + + | Pulse | 58 | 05/11/2008 7:37 AM | | | | | PST | | + + + + + | Temperature | 38.2 C (100.8 F) | 05/11/2008 7:37 AM | | | | | PST | | + + + + + | Respiratory Rate | 16 | 05/11/2008 7:37 AM | | | | | PST | | + + + + + | Oxygen Saturation | 96% | 05/11/2008 7:37 AM | | | | | PST | | + + + + + | Inhaled Oxygen | - | - | | | Concentration | | | | + + + + + | Weight | 93.1 kg (205 lb 4 | 05/10/2008 7:01 AM | | | | oz) | PST | | + + + + + | Height | 160 cm (5' 3") | 05/10/2008 7:01 AM | | | | | PST | | + + + + + | Body Mass Index | 36.36 | 05/10/2008 7:01 AM | | | | | PST | | + + + + + documented in this encounter Discharge Summaries Other, Faculty - 05/11/2008 11:19 AM PST Lizbet Lassiter MD - 05/11/2008 7:16 AM PSTForm atting of this note might be different from the original. INPATIENT PHYSICIAN DISCHARGE SUMMARY Author: LIZBET LASSITER MD Attending Physician: Aysha Blackburn MD PCP: Tuan Chan MD Admission Date: 05/10/2008 Discharge Date: 05/11/2008 Principal Final Diagnoses: Panniculitis Additional Diagnoses: Chronic pain Hypertension Principal Procedure: Panniculectomy Additional Procedures: Serial monitoring IV antibiotics Hospital Course: Ms. Heard is a 62y F with a history of panniculitis, admitted for panniculectomy on 2. She tolerated the procedure well and was extubated in the OR, then transferred to PACU for further management. She was transferred from PACU to the wards in stable conditio n. On POD#1, the patient was ambulating, tolerating a regular diet, with pain controlled on oral antibiotics. She was discharged home on POD#1 in stable condition. Medications: START taking these medications bacitracin 500 unit/g Topical Ointment by Topical route. To wound daily Qty: 1 tube Refills: 0 CONTINUE these medications which have NOT CHANGED ALBUTEROL 90 MCG/ACTUATION AEROSOL INHALER inhale 1 [...] exceed 12 tablets per any 24 hour pe riod. (Not to exceed 4000 mg of acetaminophen from all products per 24 hour period.) Qty: 60 Refills: 0 hydrocodone-acetaminophen (NORCO) 10-325 mg Oral Tablet take 1 tablet by oral route every 4-6 hours as needed for pain lisinopril 5 mg Oral Tablet take 1 tablet (5 mg) by oral route once daily lovastatin 20 mg Oral Tablet take 1 tablet (20 mg) by oral route once daily with evening meal metaxalone (SKELAXIN) 800 mg Oral Tablet take 1 tablet (800 mg) by oral route 2-3 times per day as needed MORPHINE OR None Entered MULTIVITAMIN OR Take 1 tablet daily. POTASSIUM OR Take 2 tablets daily. TOPROL XL OR None Entered Outstanding labs/studies: None Diet: Regular Activity: No lifting >15lbs for 2 weeks, no driving while on narcotic pain medications, no baths or soaking incision for 2 weeks, shower ok in 48 hours (do not scrub incision, gently rinse with soapy water), remove dressing in 48 hours. MARCELLE care per nursing Follow Up: PCP as needed Aysha Blackburn, Plastic Surgery, 1 week Disposition: Home Condition: Good Discharging Physician: LIZBET LASSITER MD Attending Physician: MD Lizbet Schaeffer MD, PGY-1 documented in this encounter Discharge Instructions Instructions Pasquale Meyers RN - 05/11/2008 INPATIENT PROVIDER DISCHARGE AND INTERDISCIPLINARY INSTRUCTIONS Discharge Date: 211/09 Service: Plastic Surgery Principal Final Diagnosis: Panniculitis Additional Diagnoses: Chronic pain Hypertension Principal Procedure: Panniculectomy Additional Procedures: Serial monitoring IV antibiotics Reason for Admission, Significant Findings, Treatment, and Complications Brief Hospital Course: Ms. Heard is a 62y F with a history of panniculitis, admitted for panniculectomy on 2/10/09. She tolerated the procedure well and was extubated in the OR, then transferred to PACU for further management. She was transferred from PACU to the wards in stable [facility]. On POD#1, the patient was ambulating, tolerating a regular diet, with pain controlled on oral antibiotics. She was discharged home on POD#1 in stable condition. Discharge Medications: START taking these medications bacitracin 500 unit/g Topical Ointment by Topical route. To wound daily Qty: 1 tube Refills: 0 CONTINUE these medications which have NOT CHANGED ALBUTEROL 90 MCG/ACTUATION AEROSOL INHALER inhale 1 [...] exceed 12 tablets per any 24 hour pe riod. (Not to exceed 4000 mg of acetaminophen from all products per 24 hour period.) Qty: 60 Refills: 0 hydrocodone-acetaminophen (NORCO) 10-325 mg Oral Tablet take 1 tablet by oral route every 4-6 hours as needed for pain lisinopril 5 mg Oral Tablet take 1 tablet (5 mg) by oral route once daily lovastatin 20 mg Oral Tablet take 1 tablet (20 mg) by oral route once daily with evening meal metaxalone (SKELAXIN) 800 mg Oral Tablet take 1 tablet (800 mg) by oral route 2-3 times per day as needed MORPHINE OR None Entered MULTIVITAMIN OR Take 1 tablet daily. POTASSIUM OR Take 2 tablets daily. TOPROL XL OR None Entered Diet: Regular Activity: No lifting >15lbs for 2 weeks, no driving while on narcotic pain medications, no baths or soaking incision for 2 weeks, shower ok in 48 hours (do not scrub incision, gently rinse with soapy water), remove dressing in 48 hours. Special Instructions: (Treatment, Equipment, Supplies, Dressings, LAB follow-up) Weigh daily: No MARCELLE drain care per nursing, please record drain outputs and have [facility] at [facility] a ppointment Call: Plastic surgery resident buttonhole machine operator at If you have any of the following: Difficulty breathing or unusual shortness of breath Excessive bleeding, drainage at the operative site Fevers, chills, increased pain that is not relieved by pain medications Persistent nausea or vomiting Opening of the wound, foul smelling drainage of the wound Follow Up Appointments: PCP: Tuan Chan MD When? As needed Other: Aysha Blackburn MD, 1 week, please call [phone] for appointment Follow Up Tests: (Tests at [facility] must be entered into Epic) None Condition On Discharge: Good Vital Signs at discharge as appropriate: BP: 104/58 mmHg (05/11/08 5:25 AM) Pulse: 56 (05/11/08 5:25 AM) Resp: 16 (05/11/08 5:25 AM) Wt - Scale: 93.1 kg (205 lb 4 oz) (05/10/08 7:01 AM) Discharge Patient To: Home Does patient have a planned readmission: No Discharge Summary Completed?: Yes- Date 05/11/2008 Discharging Provider: LIZBET LASSITER MD Date Completed: 05/11/2008 Time Completed: 714 Discharging Attending: MD Lizbet Schaeffer MD, PGY-1 INPATIENT NURSE ORDER FOR DISCHARGE AND INTERDISCIPLINARY INSTRUCTIONS DISCHARGE DATE: 05/11/2008 PATIENT EDUCATION: Patient given the following printed education materials MARCELLE drain care Review with patient/family: Understanding of disease/injury/surgical repair Yes Signs/symptoms that they should report Yes Understanding of medications and side effects Yes Activity and diet instructions Yes Follow-up appointments Yes Any concerns/fears Yes Smoking Cessation Counseling/Information was given: N/A Additional Instructions: (ex: daily weights, wound care, tube feeding, trach care, CBG kwan toring etc.) MARCELLE care, wound care Personal Effects/Medications: Sent home with patient Discharged Via: Wheelchair Mode of Transportation: Other: [employer] Accompanied by: Staff Transport Company Name: (when applicable) [employer] Phone #: Discharge Nurse: PASQUALE MEYERS RN Date: 05/11/2008 Discharge Time: 9:34 AM documented in this encounter Medications at [...] documented as of this encounter Progress Notes Lizbet Lassiter MD - 05/11/2008 7:08 AM PSTFormatting of this note might be different fro m the original. PLASTIC SURGERY PROGRESS NOTE Hospital Day:1 Author; LIZBET LASSITER MD Attending Physician: Aysha Blackburn MD Interval Hx: No acute overnight events, pt doing well, no complaints at this time, ambulati ng Physical Exam: Last Vitals: BP 104/58 | Pulse 56 | Temp 36.6 C (97.9 F) | Resp 16 | Ht 1.6 m (5' 3") | Wt 93.1 kg (205 lb 4 oz) | SpO2 96% O2 Delivery Device: None (room air) (05/11/08 5 :25 AM) 24 Hour Vital Min/Max: Systolic (24hrs), Av mmHg, Min:104 mmHg, Max:158 mmHg Diastolic (24hrs), Av mmHg, Min:12 mmHg, Max:91 mmHg Pulse Av.1 Min: 51 Max: 62 Temp Av.6 C (97.9 F) Min: 36.4 C (97.5 F) Max: 37 C (98.6 F) Resp Av.0 Min: 8 Max: 17 SpO2 Av.4 % Min: 93 % Max: 99 % Intake/Output Summary (Last 24 hours) at 05/11 0708 Last data filed at 05/11 0656 Gross per 24 hour Intake 3705 ml Output 1560 ml Net 2145 ml MARCELLE: R 120, L 215 NAD Dressing c/d/i MARCELLE's serosanguinous Maculopapular rash on lower abd, mildly erythematous, non-tender Assessment and Plan: 62y F POD#1 s/p panniculectomy for panniculitis -Doing well -Pain controlled -SLIV -D/C Home Lizbet Lassiter MD, PGY-1 Lizbet Pinzon MD - 05/11/2008 6:13 AM PSTI have seen and examined the above patient with the MS4, and agree w ith the above assessment. A/P: POD#1 s/p panniculectomy for panniculitis -doing well, pain controlled, ambulating -d/c home Lizbet Lassiter MD, PGY-1 rittanyLizz - 05/11/2008 6:13 AM PSTFormatting of this note might be different from th e original. MS4 Plastics Note Hospital Day:1 Author; Lizz Soto Attending Physician: Aysha Blackburn MD Interval Hx: No acute events overnight. Pain is well controlled. Pt ambulated, tolerating p o. Wishes to d/c home today as long as her ride can come and get her. albuterol (aka PROVENTIL, VENTOLIN) 90 mcg/Actuation inhaler 1 Puff, 1 Puff, Inhalation, EV SULTANA 4 HOURS NEEDED bacitracin ointment, , Topical, TWICE DAILY bumetanide (aka BUMEX) tablet 0.5 mg, 0.5 mg, Oral, TWICE DAILY (DIURETIC) buPROPion SR (aka WELLBUTRIN-SR) tablet 100 mg, 100 mg, Oral, DAILY ceFAZolin (aka ANCEF) injection 1 g, 1 g, Intravenous, EVERY 8 HOURS dextrose 5%-NaCl 0.45%-KCl 20 mEq/L IV infusion, 100 mL/hr, Intravenous, CONTINUOUS hydrocodone-acetaminophen (aka NORCO) 10-325 mg 1-2 Tab, 1-2 Tab, Oral, EVERY 6 HOURS NE EDED HYDROmorphone (aka DILAUDID) injection 0.5-2 mg, 0.5-2 mg, Intravenous, EVERY 2 HOURS NE EDED lisinopril (aka PRINIVIL) tablet 5 mg, 5 mg, Oral, DAILY metoprolol succinate (aka TOPROL-XL) tablet 25 mg, 25 mg, Oral, DAILY morphine CR (aka MS CONTIN) tablet 30 mg, 30 mg, Oral, TWICE DAILY multivitamin-minerals 1 Tab, 1 Tab, Oral, DAILY ondansetron (aka ZOFRAN) injection 4 mg, 4 mg, Intravenous, EVERY 12 HOURS NEEDED potassium chloride SR (aka K-DUR) tablet 20 mEq, 20 mEq, Oral, TWICE DAILY Physical Exam: Last Vitals: BP 104/58 | Pulse 56 | Temp 36.6 C (97.9 F) | Resp 16 | Ht 1.6 m (5' 3") | Wt 93.1 kg (205 lb 4 oz) | SpO2 96% 24 Hour Vital Min/Max: Systolic (24hrs), Av mmHg, Min:104 mmHg, Max:170 mmHg Diastolic (24hrs), Av mmHg, Min:12 mmHg, Max:91 mmHg Pulse Av.1 Min: 51 Max: 62 Temp Av.6 C (97.9 F) Min: 36.4 C (97.5 F) Max: 37 C (98.6 F) Resp Av.2 Min: 8 Max: 17 SpO2 Av.4 % Min: 93 % Max: 99 % Intake/Output Summary (Last 24 hours) at 05/11 06 Last data filed at 05/11 0400 Gross per 24 hour Intake 3705 ml Output 1110 ml Net 2595 ml MARCELLE/24 hr - 120 (R), 215 (L) serosanguinous General Appearance: no distress Abdomen - incision C/D/I. No erythema or redness. MARCELLE drain in place. Labs: Chemistries: Last 72 Hours (or 3 results): Recent Labs Basename 05/09/08 1617 NA 144* K 3.9 CL 107 BICARB 30 BUN 16 CR 0.88 CA 8.6 MG -- PO4 -- CBC with diff last 72 hours (or 3 results) Recent Labs Basename 05/09/08 1617 WBC 7.8 HB 12.9 HCT 37.4 PLT 219 Assessment and Plan: 62 y.o.female POD#1 s/p panniculectomy and doing well. -Ok to d/c home today -F/u w/ Dr. Blackburn in 1 week for drain removal Lizz Brittany MS4 [address] [place] [address] Kassandra Herman - 05/01 12:00 AM Emily-Germaine brownlee [id number] [facility] REC NUMBER: [id number] NAME : Germaine Heard DATE : 1945 Admit Date: 05/10/2008 Discharge Date: 05/11/2008 PHYSICIAN'S REQUEST FOR HOME HEALTH SERVICES Relevant History: Location to receive services if other than home: Allergies: Height: Weight: Ordering Physician: [address] [place] [address] Physician to follow for ongoing home health orders: PCP Name: PCP Phone: Discharge Need(s): 1. Transportation Discharge Vendor: Medicaid - [place] Discharge Suggested First Visit/Delivery Date: Discharge Service/Equipment: Shed Boss: Oralia Wang documented in this encounter Plan of Treatment + +------+--------+ + + | Name | Type | Priori | Associated Diagnoses | Order Schedule | | | | ty | | | + +------+--------+ + + | PRODUCT- RED CELLS | Lab | Routin | | One Time for 1 | | LEUKOREDUCED | | e | | Occurrences starting | | | | | | 05/10/2008 until | | | | | | 05/10/2008 | + +------+--------+ + + documented as of this encounter Procedures + +--------+ + + + | Procedure Name | Priori | Date/Time | Associated Diagnosis | Comments | | | ty | | | | + +--------+ + + + | PROCEDURE NOTE | Routin | 05/05/2015 | | Results for this | | | e | 1:54 PM | | procedure are in the | | | | PST | | results section. | + +--------+ + + + | PRODUCT - RED CELLS | Routin | 05/10/2008 | | Results for this | | LEUKOREDUCED | e | 6:43 PM | | procedure are in the | | | | PST | | results section. | + +--------+ + + + | PRODUCT - RED CELLS | Routin | 05/10/2008 | | Results for this | | LEUKOREDUCED | e | 6:43 PM | | procedure are in the | | | | PST | | results section. | + +--------+ + + + | ANESTHESIA/SEDATION | | 05/10/2008 | | Results for this | | | | 12:00 AM | | procedure are in the | | | | PST | | results section. | + +--------+ + + + | ANESTHESIA/SEDATION | | 05/10/2008 | | Results for this | | | | 12:00 AM | | procedure are in the | | | | PST | | results section. | + +--------+ + + + | OPERATION RECORD | | 05/10/2008 | | Results for this | | | | 12:00 AM | | procedure are in the | | | | PST | | results section. | + +--------+ + + + documented in this encounter Results PROCEDURE NOTE (05/05/2015 1:54 PM PST)PRODUCT- RED CELLS LEUKOREDUCED (05/10/2008 6:43 P M PST) + + + + + + | Component | Value | Ref Range | Performed | Pathologist | | | | | At | Signature | + + + + + + | PRODUCT | -1 RED BLOOD | | [facility] | | | DESCRIPTION | CELLS,ADENINE-SALINE | | DEPARTMENT | | | | ADDED,LEUKOCYTES REDUCED | | OF | | | | | | PATHOLOGY | | + + + + + + | PRODUCT | [id number] | | [facility] | | | UNIT # | | | DEPARTMENT | | | | | | OF | | | | | | PATHOLOGY | | + + + + + + | UNIT ABO | O | | [facility] | | | | | | DEPARTMENT | | | | | | OF | | | | | | PATHOLOGY | | + + + + + + | UNIT RH | POS | | [facility] | | | | | | DEPARTMENT | | | | | | OF | | | | | | PATHOLOGY | | + + + + + + | STATUS OF | Returned to Blood Bank | | [facility] | | | UNIT | | | DEPARTMENT | | | [...] + | [facility] | [address] | [place] [address] | | | PATHOLOGY | [address] | | | + + + + + | [facility] | [address] | [place] [address] | | | PATHOLOGY | [address] | | | + + + + + PRODUCT- RED CELLS LEUKOREDUCED (05/10/2008 6:43 PM PST) + + + + + + | Component | Value | Ref Range | Performed | Pathologist | | | | | At | Signature | + + + + + + | PRODUCT | -1 RED BLOOD | | [facility] | | | DESCRIPTION | CELLS,ADENINE-SALINE | | DEPARTMENT | | | | ADDED,LEUKOCYTES REDUCED | | OF | | | | | | PATHOLOGY | | + + + + + + | PRODUCT | [id number] | | [facility] | | | UNIT # | | | DEPARTMENT | | | | | | OF | | | | | | PATHOLOGY | | + + + + + + | UNIT ABO | O | | [facility] | | | | | | DEPARTMENT | | | | | | OF | | | | | | PATHOLOGY | | + + + + + + | UNIT RH | POS | | [facility] | | | | | | DEPARTMENT | | | | | | OF | | | | | | PATHOLOGY | | + + + + + + | STATUS OF | Returned to Blood Bank | | [facility] | | | UNIT | | | DEPARTMENT | | | [...] [facility] DEPARTMENT OF | [address] | [place] [address] | | | PATHOLOGY | [address] | | | + + + + + | [facility] DEPARTMENT OF | [address] | [place] [address] | | | PATHOLOGY | [address] | | | + + + + + OPERATION RECORD (05/10/2008 12:00 AM PST) + + + | Narrative | Performed At | + + + | [id number] | | | [id number] | | | [id number] [facility]A RAE [id number] | | | Date: 05/10/2008 Attending Surgeon: | | | Aysha Blackburn MD Plastics Nurse(s): | | | Lang Pisano M.D. Preoperative | | | Diagnosis(es): Panniculitis. Postoperative Diagnosis(es): | | | Panniculitis. Procedure Performed: Paniculectomy. | | | Anesthesia: General endotracheal. Complications: None. | | | Indications: Ms. Jenni Brownlee is a 62-year-old woman who has | | | undergone massive weight loss and has developed panniculitis | | | underneath her pannus which hangs down to almost her knees. She | | | was seen and evaluated in the clinic where a panniculectomy was | | | recommended. Prior to the procedure, informed consent was | | | obtained with specific risks discussed included bleeding, | | | infection, hematoma, seroma, scarring, pain, numbness, and a high | | | rate of infection for panniculectomy operations. All questions | | | were answered prior to the procedure. Procedure in Detail: | | | The patient was marked in the standing position in the PACU. Skin | | | incisions were planned so that the lower incision fell just above | | | the groin crease. The upper incision was determined by pinching the | | | excess skin hanging down as an apron. This put the upper incision | | | just superior to where the umbilicus had been. The patient was then | | | taken to the operating room and placed in the supine position. | | | Anesthesia was then induced. We began the procedure by starting with | | | the lower abdominal incision. This was taken down through the | | | subcutaneous fat to the anterior abdominal wall. We then proceeded | | | to elevate the skin off the abdominal wall to the superior incision | | | line. We then pulled the skin down to ensure that we could achieve | | | closure, and this was easily obtained. The superior incision was | | | then made down to the level of the fascia, and the pannus was passed | | | off the table. It weighed 5 pounds. The abdomen was then irrigated, | | | and hemostasis was ensured. We then placed two 19-Macedonian Ruel | | | drains in the subcutaneous plane. The skin was then closed with 2-0 | | | Polysorb interrupted suture in Karyn's fascia, 3-0 Biosyn dermal | | | stitches in the dermis, and leonila for skin closure. The abdomen | | | was cleaned and wiped dry. Bacitracin ointment was placed on the | | | incision and a sterile island dressing placed over the incision. The | | | patient tolerated the procedure well, and there were no | | | complications. At the end of the procedure, all sponge, needle, and | | | instrument counts were correct. The patient was transported to the | | | recovery room in stable condition following the procedure. I was | | | present and scrubbed for the entire case. Aysha | | | MD LORIE Arce / [id number] / [id number] / [id number] / D: | | | 05/12/2008 | | + + + + + | Procedure Note | + + | Aysha Blackburn MD - 05/10/2008 12:00 AM [facility] [id number] | | [id number] [facility] | | [id number] Date: 05/10/2008 Attending Surgeon: | | Aysha Blackburn MD Plastics Nurse(s): Lang Pisano M.D. | | Preoperative Diagnosis(es):Panniculitis. Postoperative Diagnosis(es):Panniculitis. | | Procedure Performed:Paniculectomy. Anesthesia:General endotracheal. | | Complications:None. Indications:Ms. Jenni Brownlee is a 62-year-old woman who has | | undergone massive weightloss and has developed panniculitis underneath her pannus which | | hangs downto almost her knees. She was seen and evaluated in the clinic where | | apanniculectomy was recommended. Prior to the procedure, informed consent was obtained | | with specific risksdiscussed included bleeding, infection, hematoma, seroma, scarring, | | pain,numbness, and a high rate of infection for panniculectomy operations. Allquestions | | were answered prior to the procedure. Procedure in Detail: The patient was marked in | | the standing position in the PACU. Skin incisions were planned so that the lower | | incision fell just above the groin crease. The upper incision was determined by pinching | | the excess skin hanging down as an apron. This put the upper incision just superior to | | where the umbilicus had been. The patient was then taken to the operating room and | | placed in the supine position. Anesthesia was then induced. We began the procedure by | | starting with the lower abdominal incision. This was taken down through the subcutaneous | | fat to the anterior abdominal wall. We then proceeded to elevate the skin off the | | abdominal wall to the superior incision line. We then pulled the skin down to ensure | | that we could achieve closure, and this was easily obtained. The superior incision was | | then made down to the level of the fascia, and the pannus was passed off the table. It | | weighed 5 pounds. The abdomen was then irrigated, and hemostasis was ensured. We then | | placed two 19-Macedonian Ruel drains in the subcutaneous plane. The skin was then closed | | with 2-0 Polysorb interrupted suture in Karyn's fascia, 3-0 Biosyn dermal stitches in | | the dermis, and leonila for skin closure. The abdomen was cleaned and wiped dry. | | Bacitracin ointment was placed on the incision and a sterile island dressing placed over | | the incision. The patient tolerated the procedure well, and there were no | | complications. At the end of the procedure, all sponge, needle, and instrument counts | | were correct. The patient was transported to the recovery room in stable condition | | following the procedure. I was present and scrubbed for the entire case. Aysha Crow | | MD LORIE Blackburn / [id number] / [id number] / [id number] / T: 05/12/2008 | | | | | |Indications: | |Ms. Jenni Brownlee is a 62-year-old woman who has undergone massive weight | |loss and has developed panniculitis underneath her pannus which hangs down | |to almost her knees. She was seen and evaluated in the clinic where a | |panniculectomy was recommended. | | | | | |Prior to the procedure, informed consent was obtained with specific risks | |discussed included bleeding, infection, hematoma, seroma, scarring, pain, | |numbness, and a high rate of infection for panniculectomy operations. All | |questions were answered prior to the procedure. | | | | | |Procedure in Detail: | | | |The patient was marked in the standing position in the PACU. Skin incisions were planned so that the lower incision fell just above the groin crease. The upper incision was determined by pinching the excess | |skin hanging down as an apron. This put the upper incision just superior to where the umbil icus had been. The patient was then taken to the operating room and placed in the supine pos ition. Anesthesia was then | |induced. We began the procedure by starting with the lower abdominal incision. This was chema en down through the subcutaneous fat to the anterior abdominal wall. We then proceeded to el evate the skin off the abdominal | |wall to the superior incision line. We then pulled the skin down to ensure that we could ac hieve closure, and this was easily obtained. The superior incision was then made down to the level of the fascia, and the pannus was | |passed off the table. It weighed 5 pounds. The abdomen was then irrigated, and hemostasis w as ensured. We then placed two 19-Macedonian Ruel drains in the subcutaneous plane. The skin wa s then closed with 2-0 Polysorb | |interrupted suture in Karyn's fascia, 3-0 Biosyn dermal stitches in the dermis, and staple s for skin closure. The abdomen was cleaned and wiped dry. Bacitracin ointment was placed on the incision and a sterile island | |dressing placed over the incision. The patient tolerated the procedure well, and there were no complications. At the end of the procedure, all sponge, needle, and instrument counts we re correct. The patient was | |transported to the recovery room in stable condition following the procedure. I was present and scrubbed for the entire case. | | | | | | | | | | | | | |Aysha Blackburn MD | | | | | |LORIE / PASCUAL | |[id number] / [id number] / [id number] / | | | | | | | | | | | | | | | | | | | | | + + ANESTHESIA/SEDATION (05/10/2008 12:00 AM PST) + + + | Narrative | Performed At | + + + | | | + + + + + | Procedure Note | + + | Freddie Faculty - 05/10/2008 12:00 AM PST | + + ANESTHESIA/SEDATION (05/10/2008 12:00 AM PST) + + + | Narrative | Performed At | + + + | | | + + + + + | Procedure Note | + + | Kassandra Frazier - 05/10/2008 12:00 AM PST | + + documented in this encounter Visit Diagnoses Not on filedocumented in this encounter Administered Medications + +--------+ +------+------+------+ | Medication Order | MAR | Action | Dose | Rate | Site | | | Action | Date | | | | + +--------+ +------+------+------+ | bacitracin ointment topical, | Given | 05/11/19 | | | | | TWICE DAILY, First dose on Fri | | 09 9:00 | | | | | 05/10/08 at 1445, Until | | AM PST | | | | | Discontinued | | | | | | + +--------+ +------+------+------+ +---+---+ | | | +---+---+ + +-------+ +--------+---+---+ | bumetanide (aka BUMEX) tablet | Given | 05/11/19 | 0.5 mg | | | | 0.5 mg 0.5 mg, oral, TWICE DAILY | | 09 7:39 | | | | | (DIURETIC), First dose on Fri | | AM PST | | | | | 05/10/08 at 1700, Until | | | | | | | Discontinued | | | | | | + +-------+ +--------+---+---+ +-------+ +--------+---+---+ | Given | 05/10/19 | 0.5 mg | | | | | 09 5:00 | | | | | | PM PST | | | | +-------+ +--------+---+---+ +---+---+ | | | +---+---+ + +-------+ +--------+---+---+ | buPROPion SR (aka | Given | 05/11/19 | 100 mg | | | | WELLBUTRIN-SR) tablet 100 mg 100 | | 09 9:00 | | | | | mg, oral, DAILY, First dose on | | AM PST | | | | | 05/10/08 at 1045, Until | | | | | | | Discontinued | | | | | | + +-------+ +--------+---+---+ +-------+ +--------+---+---+ | Given | 05/10/19 | 100 mg | | | | | 09 7:30 | | | | | | PM PST | | | | +-------+ +--------+---+---+ +---+---+ | | | +---+---+ + +-------+ +-----+---+---+ | ceFAZolin (aka ANCEF) injection | Given | 05/11/19 | 1 g | | | | 1 g 1 g, intravenous, EVERY 8 | | 09 2:00 | | | | | HOURS, First dose on Fri05/10/08 | | AM PST | | | | | at 1800, Until Discontinued | | | | | | + +-------+ +-----+---+---+ +-------+ +-----+---+---+ | Given | 05/10/19 | 1 g | | | | | 09 7:30 | | | | | | PM PST | | | | +-------+ +-----+---+---+ +---+---+ | | | +---+---+ + +---------+ +-------+-------+---+ | dextrose 5%-NaCl 0.45%-KCl 20 | New Bag | 05/10/19 | 100 | 100 | | | mEq/L IV infusion 100 mL/hr, | | 09 11:00 | mL/hr | mL/hr | | | intravenous, CONTINUOUS, Starting | | AM PST | | | | | Fri05/10/08 at 1100, Until Wed | | | | | | | 05/11/08 at 0632 | | | | | | + +---------+ +-------+-------+---+ +---+---+ | | | +---+---+ + +-------+ +---------+---+---+ | fentanyl (aka SUBLIMAZE) | Given | 05/10/19 | 100 mcg | | | | injection 1 dose, Starting Tue | | 09 11:00 | | | | | 05/10/08 at 1029, Until Tue | | AM PST | | | | | 05/10/08 at 1101 | | | | | | + +-------+ +---------+---+---+ +---+---+ | | | +---+---+ + +-------+ + +---+---+ | hydrocodone-acetaminophen (aka | Given | 05/11/19 | 1 tablet | | | | NORCO) 10-325 mg 1-2 Tab 1-2 | | 09 11:01 | | | | | tablet, oral, EVERY 6 HOURS | | AM PST | | | | | NEEDED, Starting 05/10/08 at | | | | | | | 1021, Until 05/11/08 at 1720, | | | | | | | mild pain | | | | | | + +-------+ + +---+---+ +-------+ + +---+---+ | Given | 05/11/19 | 1 tablet | | | | | 09 7:38 | | | | | | AM PST | | | | +-------+ + +---+---+ | Given | 05/11/19 | 1 tablet | | | | | 09 3:20 | | | | | | AM PST | | | | +-------+ + +---+---+ +---+---+ | | | +---+---+ + +-------+ +------+---+---+ | HYDROmorphone (aka DILAUDID) | Given | 05/10/19 | 1 mg | | | | injection 1 dose, Starting Fri | | 09 11:00 | | | | | 05/10/08 at 1030, Until Tue | | AM PST | | | | | 05/10/08 at 1102 | | | | | | + +-------+ +------+---+---+ +---+---+ | | | +---+---+ + +-------+ +------+---+---+ | lisinopril (aka PRINIVIL) | Given | 05/11/19 | 5 mg | | | | tablet 5 mg 5 mg, oral, DAILY, | | 09 9:00 | | | | | First dose on Fri05/10/08 at | | AM PST | | | | | 1045, Until Discontinued | | | | | | + +-------+ +------+---+---+ +-------+ +------+---+---+ | Given | 05/10/19 | 5 mg | | | | | 09 7:30 | | | | | | PM PST | | | | +-------+ +------+---+---+ +---+---+ | | | +---+---+ + +---------+ +------+--------+---+ | morphine 5 mg/mL FIREFIGHTER TYPE ONE infusion | New Bag | 05/10/19 | 1 mg | mL/hr | | | (ADULT) intravenous, | | 09 12:04 | | | | | CONTINUOUS, Starting Fri05/10/08 | | PM PST | | | | | at 1145, Until Fri05/10/08 at | | | | | | | 1850 | | | | | | + +---------+ +------+--------+---+ +---+---+ | | | +---+---+ + +-------+ +-------+---+---+ | morphine CR (aka MS CONTIN) | Given | 05/11/19 | 30 mg | | | | tablet 30 mg 30 mg, oral, TWICE | | 09 9:00 | | | | | DAILY, First dose on Fri05/10/08 | | AM PST | | | | | at 2100, Until Discontinued | | | | | | + +-------+ +-------+---+---+ +---+---+ | | | +---+---+ + +-------+ + +---+---+ | multivitamin-minerals 1 Tab 1 | Given | 05/11/19 | 1 tablet | | | | tablet, oral, DAILY, First dose | | 09 9:00 | | | | | on Fri05/10/08 at 1445, Until | | AM PST | | | | | Discontinued | | | | | | + +-------+ + +---+---+ +-------+ + +---+---+ | Given | 05/10/19 | 1 tablet | | | | | 09 7:30 | | | | | | PM PST | | | | +-------+ + +---+---+ +---+---+ | | | +---+---+ + +-------+ +--------+---+---+ | potassium chloride SR (aka | Given | 05/11/19 | 20 mEq | | | | K-DUR) tablet 20 mEq 20 mEq, | | 09 9:00 | | | | | oral, TWICE DAILY, First dose on | | AM PST | | | | | e 05/10/08 at 2100, Until | | | | | | | Discontinued | | | | | | + +-------+ +--------+---+---+ +-------+ +--------+---+---+ | Given | 05/10/19 | 20 mEq | | | | | 09 9:00 | | | | | | PM PST | | | | +-------+ +--------+---+---+ +---+---+ | | | +---+---+ documented in this encounter
--- OUTSIDE RECORDS SUMMARY | ~2019-09-05 | XMS | Encounter Summary ---
Demographics + + + | Address | [address] | | | [place] [address] | + + + | Home Phone [...] [place] | | | | | [address] | | + + + + + Care Team Providers + +------+ + | Care Dumper Name | Role | Phone | + [...] | 2005 | Visit | Center [address] | | Obesity | | | | [place] Mailcode: CH4S | | | | | | [facility] | | | | | | and Healing, | | | | | | Building [address] | | | | | | Floor [place], [place] | | | | | | [address] | | | | | | [phone] | | | +--------+---------+ + + + [...] The next will be in 2 m [facility] time. documented in this encounter Plan of Treatment Not on filedocumented as of this encounter Visit Diagnoses + + | Diagnosis | + + | Achalasia Achalasia and cardiospasm | + + | Obesity Obesity, unspecified | + + documented in this encounter
--- OUTSIDE RECORDS SUMMARY | ~2019-09-05 | XMS | Encounter Summary ---
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 SPO2= 93 | | | | | | Sirisha Vigil CONVEYOR TECHNICIAN | | | | + + [...] [facility] | [address] | [place], [place] | | | DIAGNOSTICS - | [address] | [address] | | | PULMONARY FUNCTION | | | | + + + + + documented in this encounter Visit Diagnoses Not on filedocumented in this encounter"
--- OUTSIDE RECORDS SUMMARY | ~2019-09-05 | XMS | Encounter Summary ---
Demographics + + + | Address | [address] | | | [place] [address] | + + + | Home Phone | | + + + | Preferred Language | Unknown | + + + | Marital Status | | + + + | Presybeterian Affiliation | PRO | + + + | Race | White | + + + | Ethnic Group | Not or | + + + Author + + + | Author | [facility] | + + + | Organization | [facility] | + + + | Address | Unknown | + + + | Phone | Unavailable | + + + Support + + + + + | Name | Relationship | Address | Phone | + + + + + | Hector Mack | ECON | [address] | | | | | [place] | | | | | [address] | | + + + + + Care Team Providers + +------+ + | Care Linen Aide Name | Role | Phone | + [...] (Primary Dx) | | 2006 | | [place] [address] MD | | | | | [place] Mailcode: [facility] | | | | | | [facility] | | | | | | and Healing, | | | | | | Building [address] | | | | | | Floor [place], [place] | | | | | | [address] | | | | | | [phone] | | | +--------+ + + + [...] Performed At | + + + | [id number] Estimated GFR = 60 mL/min/1.73 sq m if non- | [facility] | | [id number] Estimated GFR > 60 mL/min/1.73 sq m [...] + + | Performing | Address | City/State/[facility] | Phone Number | | Organization | | | | + + + + + | [facility] | [address] | [place] [address] | | | PATHOLOGY | [address] | | | + + + + + | [facility] DEPARTMENT OF | [address] | [place] [address] | | | PATHOLOGY | [address] [...] DEPARTMENT OF | [address] | [place] [address] | | | PATHOLOGY | [address] | | | + + + + + | [facility] | [address] | [place] [address] | | | PATHOLOGY | [address] | | | + + + + + documented in this encounter Visit Diagnoses + + | Diagnosis | + + | Obesity - Primary Obesity, unspecified | + + documented in this encounter"
--- OUTSIDE RECORDS SUMMARY | ~2019-09-05 | XMS | Encounter Summary ---
Demographics + + + | Address | [address] | | | [place] [address] | + + + | Home Phone | | + + + | Preferred Language | Unknown | + + + | Marital Status | | + + + | Presybeterian Affiliation | 1077 | + + + | Race | Unknown | + + + | Ethnic Group | Unknown | + + + Author + + + | Author | [facility] | | | and [place] | + + + | Organization | [facility] | | [...] [place] | | | | | [address] | | + + + + + | Najma Xiong | ECON | Unknown | | + + + + + | Hector Mack | ECON | [address] | | | | | [place] | | | | | [address] | | + + + + + Care Team Providers + +------+ + | Care Indigo Mixer Name | Role | Phone | + +------+ + PCP | Unavailable | + +------+ + Encounter Details +--------+ + + + + | Date | Type | Department | Care Team | Description | +--------+ + + + + | 08/06/ | Hospital | [facility] | Tuan Chan, | LUMBOSACRAL NEURITIS | | 2005 | Encounter | [address] | [address] [place] | [address] | | | [address] | [place], [place] | | | | | [place], [place] | [address] | | | | | [address] | [phone] | | | | | [phone] | | | +--------+ + + + [...] [place] | | | | | | [address] | | | | | | | | +--------+---------+ + + + documented as of this encounter Visit Diagnoses + + | Diagnosis | + + | Thoracic or lumbosacral neuritis or radiculitis, unspecified | + + documented in this encounter"
--- OUTSIDE RECORDS SUMMARY | ~2019-09-05 | XMS | Encounter Summary ---
Demographics + + + | Address | [address] | | | [place] [address] | + + + | Home Phone [...] [place] | | | | | [address] | | + + + + + Care Team Providers + +------+ + | Care Heel Edge Inker Machine Name | Role | Phone | + [...] | 2008 | Visit | Medical at [facility] [address] | [address] Fig[address] | (Primary Dx) | | | | [address] [place] | [address] [place], | | | | | Mailcode: [address] | [place] [address] | | | | | [facility] | [phone] | | | | | and Healing, | | | | | | Building | | | | | | Floor [place], [place] | | | | | | [address] | | | | | | [phone] | | | +--------+---------+ + + + [...] --s/p CABG in 2000 in [facility] --s/p cholecystectomy 35 years ago --s/p [...] Julia Buckley PA-C Department of Dermatology 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
--- OUTSIDE RECORDS SUMMARY | ~2019-09-05 | XMS | Encounter Summary ---
Demographics + + + | Address | [address] | | | [place] [address] | + + + | Home Phone [...] + | Author | [facility] | | | and [place] | + + + | Organization | [facility] | | | and [...] [place] | | | | | [address] | | + + + + + | Najma Xiong | ECON | Unknown | | + + + + + | Hector Mack | ECON | [address] | | | | | [place] | | | | | [address] | | + + + + + Care Team Providers + +------+ + | Care Senior Counsel Commercial Name | Role | Phone | + +------+ + PCP | Unavailable | + +------+ + Encounter Details +--------+ + + + + | Date | Type | Department | Care Team | Description | +--------+ + + + + | 07/25/ | Hospital | [facility] | | | | 1996 | Encounter | [facility] | | | | | | CENTER [address] | | | | | | [place] | | | | | | [address] | | | | | | [phone] | | | +--------+ + + + [...] [place] | | | | | | [id number] | | | | | | | | +--------+---------+ + + + documented as of this encounter Visit Diagnoses Not on filedocumented in this encounter"
--- OUTSIDE RECORDS SUMMARY | ~2019-09-05 | XMS | Encounter Summary ---
Demographics + + + | Address | [address] | | | [place] [address] | + + + | Home Phone | | + + + | Preferred Language | Unknown | + + + | Marital Status | | + + + | Jehovah'S Witness Affiliation | PRO | + + + | Race | White | + + + | Ethnic Group | Not or | + + + Author + + + | Author | [facility] | + + + | Organization | [facility] | + + + | Address | Unknown | + + + | Phone | Unavailable | + + + Support + + + + + | Name | Relationship | Address | Phone | + + + + + | Hector Mack | ECON | [address] | | | | | [place] | | | | | [address] | | + + + + + Care Team Providers + +------+ + | Care Aircraft Maintenance Engineer Name | Role | Phone | [...] General Surgery | Papi Johnson MD | Achalasia (Primary | | 2005 | Visit | [address] | [address] | Dx) | | | | Loop Mailcode: | [address] [place], | | | | | [address] Physician's | [place] [address] | | | | | [address] | [phone] | | | | | [place], [place] | | | | | | [address] | | | | | | [phone] | | | +--------+---------+ + + + [...] cardiac problems. She smoked, has about a 79-jkad-spao smoking history but has not smoked in [...]
--- OUTSIDE RECORDS SUMMARY | ~2019-09-05 | XMS | Encounter Summary ---
Demographics + + + | Address | [address] | | | [place] [address] | + + + | Home Phone [...] [place] | | | | | [address] | | + + + + + Care Team Providers + +------+ + | Care Global Category Manager Name | Role | Phone | + +------+ + | Tuan Chan MD | PCP | | + +------+ + Encounter Details +--------+ + + + + | Date | Type | Department | Care Team | Description | +--------+ + + + + | 06/17/ | Hospital | Registration [address] | Noe Hdez, | | | 2007 | Activity | [address] | [address] | | | | | [place] Mailcode: [address] | [place], [place] | | | | | [place], [place] | [address] | | | | | [address] | [phone] | | | | | [phone] | | | +--------+ + + + [...]
--- OUTSIDE RECORDS SUMMARY | ~2019-09-05 | XMS | Encounter Summary ---
Demographics + + + | Address | [address] | | | [place] [address] | + + + | Home Phone [...] | Organization | [facility] | | | and [place] | [...] [place] | | | | | [address] | | + + + + + | Najma Xiong | ECON | Unknown | | + + + + + | Hector Mack | ECON | [address] | | | | | [place] | | | | | [address] | | + + + + + Care Team Providers + +------+ + | Care Assembler 1St Shift Name | Role | Phone | [...] + + | 01/08/ | Telephone | [facility] | Liseth Cuevas RN | ED Follow-up | | 2017 | | HOSPITAL EMERGENCY | | | | | | [address] | | | | | | [place], [place] | | | | | | [address] | | | | | | [phone] | | | +--------+ + + + [...] [place] | | | | | | [address] | | | | | | | | +--------+---------+ + + + documented as of this encounter Visit Diagnoses Not on filedocumented in this encounter"
--- OUTSIDE RECORDS SUMMARY | ~2019-09-05 | XMS | Encounter Summary ---
Demographics + + + | Address | [address] | | | [place] [address] | + + + | Home Phone | | + + + | Preferred Language | Unknown | + + + | Marital Status | | + + + | Synagogue Affiliation | 1077 | + + + | Race | Unknown | + + + | Ethnic Group | Unknown | + + + Author + + + | Author | [facility] | | | and [place] | + + + | Organization | [facility] | | | and [...] [place] | | | | | [address] | | + + + + + | Najma Xiong | ECON | Unknown | | + + + + + | Hector Mack | ECON | [address] | | | | | [place] | | | | | [address] | | + + + + + Care Team Providers + +------+ + | Care Garbage Person Name | Role | Phone | + +------+ + PCP | Unavailable | + +------+ + Encounter Details +--------+ + + + + | Date | Type | Department | Care Team | Description | +--------+ + + + + | 04/22/ | Hospital | [facility] | Conversion | Pain | | 2012 | Encounter | [address]VERSION [address] | Transaction, | | | | [address] | Provider Unknown | | | | | [place], [place] | | | | | | [address] | (Fax) | | | | | [phone] | | | +--------+ + + + [...] [place] | | | | | | [address] | | | | | | | | +--------+---------+ + + + documented as of this encounter Procedures + +--------+ + + + | Procedure Name | Priori | Date/Time | Associated Diagnosis | Comments | | | ty | | | | + +--------+ + + + | CT CERVICAL SPINE WO | Routin | 04/21/2012 | | Results for this | | CONTRAST | e | 10:13 AM | | procedure are in the | | | | PST | | results section. | + +--------+ + + + documented in this encounter Results CT Cervical Spine wo Contrast (04/21/2012 10:13 AM PST) + + | Specimen | + + | | + + + + + | Narrative | Performed At | + + + | This is a non-reportable procedure without a radiologist report and | | | is used for image storage only | | + + + + + | Procedure Note | + + | Victor Hugo, Javier Roma - 11/20/2018 8:07 PM PDT This is a non-reportable procedure | | without a radiologist report and isused for image storage only | + + documented in this encounter Visit Diagnoses + + | Diagnosis | + + | Pain Generalized pain | + + documented in this encounter"
--- OUTSIDE RECORDS SUMMARY | ~2019-09-05 | XMS | Encounter Summary ---
Demographics + + + | Address | [address] | | | [place] [address] | + + + | Home Phone | | + + + | Preferred Language | Unknown | + + + | Marital Status | | + + + | Moravian Affiliation | 1077 | + + + | Race | Unknown | + + + | Ethnic Group | Unknown | + + + Author + + + | Author | [facility] | | | and [place] | + + + | Organization | [facility] | | | and [...] [place] | | | | | [address] | | + + + + + | Najma Xiong | ECON | Unknown | | + + + + + | Hector Mack | ECON | [address] | | | | | [place] | | | | | [address] | | + + + + + Care Team Providers + +------+ + | Care Pruner Name | Role | Phone | + +------+ + PCP | Unavailable | + +------+ + Encounter Details +--------+ + + + + | Date | Type | Department | Care Team | Description | +--------+ + + + + | 09/07/ | Hospital | [facility] | Conversion | Chest pain | | 2013 | Encounter | [address] | Transaction, | | | | | [address] | Provider Unknown | | | | | [place], [place] | [phone] | | | | | [address] | | | | | | [phone] | | | +--------+ + + + [...] [place] | | | | | | [address] | | | | | | | [...] Note | + + | Javier Gay Roma - 11/20/2018 8:07 PM PDT This is a non-reportable procedure | | without a radiologist report and isused for image storage only | + + documented in this encounter Visit Diagnoses + + | Diagnosis | + + | Chest pain Chest pain, unspecified | + + documented in this encounter"
--- OUTSIDE RECORDS SUMMARY | ~2019-09-05 | XMS | Encounter Summary ---
Demographics + + + | Address | [address] | | | [place] [address] | + + + | Home Phone [...] [place] | | | | | [address] | | + + + + + Care Team Providers + +------+ + | Care Photo Technician Name | Role | Phone | [...] 01/14/ | Office | Preoperative | 1, [facility] Dism[employer] [address] | Panniculitis; CAD | | 2007 | Visit | Medicine Clinic at | [address] | (Coronary Artery | | | | [facility] 4th Floor [address] | [place] [address] | Disease); DM Circ | | | | [address] | | Dis Type II, | | | | Mailcode: CH4S | | Uncontrolled (HCC); | | | | [facility] | | Other Specified | | | | and Healing, | | Pre-Operative | | | | Building 1,4th Floor | | Examination | | | | [place], [place] | | | | | | [address] | | | | | | [phone] | | | +--------+---------+ + + + [...] | + + +--------+ + + | GA COLLECTION VENOUS | Procedures | Routin | [...] | + + + + + | [facility] | [address] | [place] [address] | | | PATHOLOGY | [address] | | | + + + + + | [facility] | [address] | [place] [address] | | | PATHOLOGY | [address] [...] | + + + + + | [facility] | [address] | [place] [address] | | | PATHOLOGY | [address] | | | + + + + + | [facility] | [address] | [place] [address] | | | PATHOLOGY | [address] [...] | + + + + + | [facility] | [address] | [place] [address] | | | PATHOLOGY | [address] | | | + + + + + | [facility] | [address] [place] [address] [address] | [place] [address] | | | PATHOLOGY | [address] [...] | + + + + + | [facility] | [address] | [place] [address] | | | PATHOLOGY | [address] | | | + + + + + | [facility] | [address] | [place] [address] | | | PATHOLOGY | [address] [...] Performed At | + + + | [id number] Estimated GFR > 60 mL/min/1.73 sq m if non- | [facility] | | [place] [id number] Estimated GFR > 60 mL/min/1.73 sq m if | DEPARTMENT OF | | [place] GFR is estimated using the MDRD equation [...] | + + + + + | [facility] | [address] | [place] [address] | | | PATHOLOGY | [address] | | | + + + + + | [facility] DEPARTMENT OF | [address] | [place] [address] | | | PATHOLOGY | [address] [...] | + + + + + | [facility] | [address] | [place] [address] | | | PATHOLOGY | [address] | | | + + + + + | [facility] DEPARTMENT | [address] | [facility] [place] [address] | | | PATHOLOGY | [address] [...] + + + | Please click | [facility] | | on view image for the detailed interpretation from [employer] results. | CARDIOLOGY | | | | + + + + + + + + | Performing | Address | City/State/Zipcode | Phone Number | | Organization | | | | + + + + + | [facility] | [address] | [place], [place] | | | CARDIOLOGY | [address] | [address] | | + + + + + | [facility] | [address] | [place], [place] | | | CARDIOLOGY | [address] | [address] | | + + + + + documented in this encounter Visit Diagnoses + + | Diagnosis | + + | Panniculitis Panniculitis, unspecified site | + + | CAD (coronary artery disease) Coronary atherosclerosis of unspecified type of vessel, | | eagle or graft | + + | Type II or unspecified type diabetes mellitus with peripheral circulatory disorders, | | uncontrolled(250.72) Type II or unspecified type diabetes mellitus with peripheral | | circulatory disorders, uncontrolled | + + | Other specified pre-operative examination | + + documented in this encounter
--- OUTSIDE RECORDS SUMMARY | ~2019-09-05 | XMS | Encounter Summary ---
Demographics + + + | Address | [address] | | | [place] [address] | + + + | Home Phone | | + + + | Preferred Language | Unknown | + + + | Marital Status | | + + + | Mandaen Affiliation | 1077 | + + + | Race | Unknown | + + + | Ethnic Group | Unknown | + + + Author + + + | Author | [facility] | | | and [place] | + + + | Organization | [facility] | | | and [...] [place] | | | | | [address] | | + + + + + | Najma Xiong | ECON | Unknown | | + + + + + | Hector Mack | ECON | [address] | | | | | [place] | | | | | [address] | | + + + + + Care Team Providers + +------+ + | Care Hauling Contractor Name | Role | Phone | + +------+ + PCP | Unavailable | + +------+ + Encounter Details +--------+ + + + + | Date | Type | Department | Care Team | Description | +--------+ + + + + | 09/26/ | Hospital | [facility] | | | | 1994 - | Encounter | MED [facility] MED [facility] | | | | | | [address] | | | | 10/04/ | | [place] [id number] | | | | 1994 | | [phone] | | | +--------+ + + + [...] CINTR[place] | | | | | | [id number] | | | | | | | | +--------+---------+ + + + documented as of this encounter Visit Diagnoses Not on filedocumented in this encounter"
--- OUTSIDE RECORDS SUMMARY | ~2019-09-05 | XMS | Encounter Summary ---
Demographics + + + | Address | [address] | | | [place] [address] | + + + | Home Phone | | + + + | Preferred Language | Unknown | + + + | Marital Status | | + + + | Taoist Affiliation | 1077 | + + + | Race | Unknown | + + + | Ethnic Group | Unknown | + + + Author + + + | Author | [facility] | | | and [place] | + + + | Organization | [facility] | | | and [place] | + + + | Address | Unknown | + + + | Phone | Unavailable | + + + Support + + + + + | Name | Relationship | Address | Phone | + + + + + | Hector Blankenship | ECON | [address] | | | | | [place] | | | | | [address] | | + + + + + | Najma Xiong | ECON | Unknown | | + + + + + | Hector Blankenship | ECON | [address] | | | | | [place] | | | | | [address] | | + + + + + Care Team Providers + +------+ + | Care Vegetable Loader Name | Role | Phone | + [...] + + | 05/18/ | Hospital | [facility] | Oralia Nevarez | Hypokalemia (Primary | | 2019 - | Encounter | HOSPITAL MED SURG | [address] | Dx); Right hand | | | | [address] | [address] | weakness; 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 Weinstein ([facility]) Primary Discharge Dx: Active Hospital Problems Diagnosis [...] of the left basal ganglia that l ikely corresponds with a completed infarct, but there [...] has remained stable on repeat labs. Continue MAP MAKER supplementation at 10 mEq per day. 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 Biop sied at [facility] in Jan 2018. Reviewed by dermatopathologist. Differential based on path findings is [place]'s disease, Ninfa-Ninfa disease, Darier disease and eczematous [...] of urine. [facility] in [place] for the winter. APS report being made, however she is going to a s afe living situation at [facility] in [place]. FEN:(albumin <= 3.2 g/dL) VTE Prophylxis low molecular weight heparin Code Status: Full Code Anticipated Date of Discharge: 05/22/[address] conditions, weather. Anticipated Discharge needs: PT, OT and speech therapy. Post-Hospital Care: Senior Living Facility in [facility]. She has been accepted by [facility]. [...] Intake/Output Summary (Last 24 hours) at 05/22/18 1052 Last data filed at 05/22/18 0625 Gross [...] pH, Urine 5.5 5.0 - 8.0 Specific [place] 1.025 1.005 - 1.030 Protein, Urine 30 [...] Ct Angiogram Head Neck Result Date: 05/20/[address] [address] NAME: GERMAINE BARBOUR Jesus DATE: 05/20/2018 : 0 1945 PT GENDER: F ROOM: IN Physician: ORALIA NEVAREZ PID3: [id number] CC TO: MR#: PROCEDURE: CTA BRAIN AND [...] thyroid gland. 1 :03 PM at workstation [id number] Pending study results on DC: Unresulted Labs [...] aka: PERCOCET Condition on Discharge: Stable Disposition: Senior Living Facility Current Support: Family daughter Najma. Services Ordered: PT, OT, GROUND OPERATIONS SUPERVISOR. See SNF transfer note for details. 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 Discharge Instructions Please continue: - physical therapy [...] tablet by | 30 | 0 | 20 | | | chewable tablet | mouth [...] tablet by | 30 | 0 | 20 | | | 325 mg tablet | mouth daily (with | tablet | | 19 | | | | breakfast). | | | | | + + + +---------+ + + | lisinopril | Take 1 tablet by | 30 | 0 | //20 | | | (PRINIVIL, ZESTRIL) | mouth [...] under | 60 g | 0 | /22/20 | | | (MYCOSTATIN) powder | both [...] daily. | tablet | | 19 | 0 | | 25 mg tablet | | | | | | + + + +---------+ + + documented as of this encounter Progress Notes Trinidad Miranda, Health Iso Coordinator - 05/21/2018 2:43 PM PSTTransport arrangements madrigal ve been finalized. Pharmacy for scripts have been finalized. Family has been notified. Queenie ctronically signed by Trinidad Miranda, Health Iso Coordinator at 05/21/2018 2:44 PM Oralia Quevedo MD - 05/21/2018 1:18 PM PSTFormatting of [...] of the left basal ganglia that l ikely corresponds with a completed infarct, but there [...] on trunk, back, palms. Biop sied at [facility] in Jan 2018. Reviewed by dermatopathologist. Differential based on path findings is [place]'s disease, Ninfa-Ninfa disease, Darier disease and eczematous [...] PT, OT and speech therapy. Post-Hospital Care: Senior Living Facility in [facility]. She has been accepted by [facility]. [...] Ct Angiogram Head Neck Result Date: 05/20/[address] [address] NAME: GERMAINE BARBOUR DATE: 05/20/2018 : 0 1945 PT GENDER: F ROOM: IN Physician: ORALIA ROQUE PID3: [id number] CC TO: MR#: PROCEDURE: CTA BRAIN AND [...] thyroid gland. 1 :03 PM at workstation [id number] Documentation assistance provided by Jolie Pimentel, medical student. I repeated all eleme nts of the history and physical and have edited all parts of the note to reflect my evaluati on. Electronically signed: Oralia Nevarez MD 05/21/2018 13:18 DATE OF SERVICE: 05/21/2018 Trinidad Palacios, Health Iso Coordinator - 05/20/2018 3:[address] [place] has agreed to accept Germaine. Working on transport options. [facility] transport is working on transport for Friday by 11. Trinidad Palacios, Health Unit Coordin ator - 05/20/2018 10:55 AM PSTSpoke with Najma Xiong-daughter. She has made preliminary arr angements for Germaine to be placed at [facility] in [place]. Will make phone contact with them today. Faxed referral notes to chemical radiation technician for review. El ectronically signed by Trinidad Miranda, Health Iso Coordinator at 05/20/2018 2:26 PM PSTAlexandria castrejon, Oralia [...] on trunk, back, palms. biop sied at [facility] in Jan 2018. Reviewed by dermatopathologist. Differential based on path findings is [place]'s disease, Ninfa-Ninfa disease, Darier disease and eczematous [...] resources, housing resources, CHW support. Post-Hospital Care: Senior Living Facility vs [facility] depending on improvement in cognitive i mpairment. Subjective Germaine pulled out IV yesterday and it was left out and ceftriaxone given IM. Daughter Elana vu who lives in [place] has called and is interested in bringing Germaine closer to her. July ischarge to SNF near [place]. Germaine has no complaints. Right hand weakness [...] Ct Head Wo Contrast Result Date: 05/18/2018 [place] [address] NAME: GERMAINE BARBOUR Jesus DATE: 05/18/2018 : 0 1945 PT GENDER: F ROOM: ER Physician: ORALIA NEVAREZ PID3: [id number] CC TO: MR#: This report includes an [...] evaluation with MRI if indicated. at workstation [id number] ADDENDUM #1 Add communi cation: Communication: Relayed findings to Dr. Nevarez on 05/18/18 at 8830. Gave her contact info for Dr. Nieves./hs Transcribed by: HS at 05/18/2018 5:37 PM at workstation [id number] Xr Chest Ap Portable Result Date: 05/18/[address] [address] NAME: ANTONIETTA BLANKENSHIPGERMAINE DATE: 05/18/2018 : 0 1945 PT GENDER: F ROOM: ER Physician: ORALIA NEVAREZ PID3: [id number] CC TO: MR#: PROCEDURE: AP PORTABLE CHEST [...] evidence of acute cardiopulmonary disease. at workstation [id number] Vas Carotid Duplex Bilateral Result Date: 05/19/[address] [address] NAME: GERMAINE BARBOUR DATE: 05/19/2018 : 0 1945 PT GENDER: F ROOM: IN Physician: ORALIA NEVAREZ PID3: [id number] CC TO: MR#: PROCEDURE: ULTRASOUND BILATERAL CAROTID [...] Right 3 + Vw Result Date: 05/18/2018 [place] [address] NAME: GERMAINE BARBOUR DATE: 05/18/2018 : 0 1945 PT GENDER: F ROOM: ER Physician: ORALIA NEVAREZ PID3: [id number] CC TO: MR#: PROCEDURE: RIGHT HAND - [...] calcifications and sof t tissue swelling. at workstat ion [facility]-[id number] Electronically signed: Oralia Nevarez MD 05/20/2018 10:37 DATE OF SERVICE: 05/20/2018 1 1:10 AM PSTRoque, Oralia Dove MD - 05/19/2018 12:47 PM [...] on trunk, back, palms. biop sied at [facility] in Jan 2018. Reviewed by dermatopathologist. Differential based on path findings is [place]'s disease, Ninfa-Ninfa disease, Darier disease and eczematous process. - plan to consult [facility] derm by phone prior to discharge. # [...] and Trey araujo will take shuttle to [place] to take care of their dog. Review [...] in right hand but not light touch. [place] ed to person but not place or [...] pH, Urine 5.5 5.0 - 8.0 Specific [place] 1.025 1.005 - 1.030 Protein, Urine 30 [...] Ct Head Wo Contrast Result Date: 05/18/[address] [address] NAME: ANTONIETTA BLANKENSHIP GERMAINE Jesus DATE: 05/18/2018 : 0 1945 PT GENDER: F ROOM: ER Physician: ORALIA NEVAREZ PID3: [id number] CC TO: MR#: This report includes an [...] evaluation with MRI if indicated. at workstation My Visual [id number] ADDENDUM #1 Add communi cation: Communication: Relayed findings to Dr. Nevarez on 05/18/18 at 1736. Gave her contact info for Dr. Nieves./hs Transcribed by: HS at 05/18/2018 5:37 PM at workstation [id number] Xr Chest Ap Portable Result Date: 05/18/2018 [place] [address] NAME: GERMAINE BARBOUR DATE: 05/18/2018 : 0 1945 PT GENDER: F ROOM: ER Physician: ORALIA NEVAREZ PID3: [id number] CC TO: MR#: PROCEDURE: AP PORTABLE CHEST [...] evidence of acute cardiopulmonary disease. at workstation [id number] Xr Hand Right 3 + Vw Result Date: 05/18/[address] [address] NAME: GERMAINE BARBOUR DATE: 05/18/2018 : 0 1945 PT GENDER: F ROOM: ER Physician: ORALIA NEVAREZ PID3: [id number] CC TO: MR#: PROCEDURE: RIGHT HAND - [...] calcifications and sof t tissue swelling. at [employer] [facility]-[id number] Electronically signed: Oralia Nevarez MD 05/19/2018 12:47 DATE OF SERVICE: 05/19/2018 documented in this encounter Plan of Treatment +--------+---------+ + + + | Date | Type | Specialty | Care Team | Description | +--------+---------+ + + + | 11/25/ | Office | Neurology | Duarte Moon MD | | | 2019 | Visit | | [address] | | | | | | [place] | | | | | | [address] [...] n - | | | | | 2018 | [...] | | | FICATI | | | ON?02/ | | | 18/201 | | | 9 | | | 15:14? | | | ANTONIETTA | | | BARNET | | | T, | | | GERMAINE | | | D?MRN: | | | | | | [id number] | | | [id number] | | | riteri | | | [...] | | | St. | | | [place] | | | y | | | [...] | | | at | | | [phone] | | | [phone] | | | .These | | | [...] | | | St. | | | [place] | | | y | | | [...] | | | St. | | | [place] | | | y H. | | [...] | | | St. | | | [place] | | | y H. | | [...] | | | St. | | | [place] | | | y H. | | [...] | | | St. | | | [place] | | | y H. | | [...] Platelet | 187 | >140-<440 K/uL | [facility] | | [...] | + + + + + | [facility] | [address] | [place], [place] | [phone] | | HOSPITAL LABORATORY | | [address] | | + + + + + Calcium, Ionized (05/22/2018 6:50 AM PST) + + + + + + | Component | Value | Ref Range | Performed | Pathologist | | | | | At | Signature | + + + + + + | pH | 7.52 (H) | 7.31 - 7.41 | [facility] | | | | | | [facility] | | | | | | HOSPITAL | | | | | | LABORATORY | | + + + + + + | Calcium, | 1.06 (L)Comment: CA ION: | 1.11 - 1.30 | [facility] | | | Ionized | L | [...] | + + + + + | [facility] | [address] | [place] | [phone] | | HOSPITAL LABORATORY | | [address] | | + + + + + [...] 13 | 5 - 26 mg/dL | [facility] | | | | | | COMMUNITY | | | | | | HOSPITAL | | | | | | LABORATORY | | + + + + + + | Creatinine | 0.76 | >0.60-<1.30 | [facility] | | | | | mg/dL | [facility] | | | | | | HOSPITAL | | | | | | LABORATORY | | + + + + + + | eGFR if not | >60Comment: GLOMERULAR | >=60 | [facility] | | | | FILTRATION | mL/min/1.73m2 | [facility] | | | [place] | RATE,ESTIMATED | | HOSPITAL | | | | mL/min/1.12a3Mvkt than | | LABORATORY | | | [...] 7.8 (L) | 8.3 - 10.0 | [facility] [...] (L) | 18 - 63 U/L | [facility] | | | | | | COMMUNITY | | | | | | HOSPITAL | | | | | | LABORATORY | | + + + + + + | Alkaline | 59 | 50 - 136 U/L | [facility] | | | Phosphatase | | | COMMUNITY | | | | | | HOSPITAL | | | | | | LABORATORY | | + + + + + + | Globulin | 3.1 | 1.5 - 3.5 g/dL | [facility] | | | | | [...] | + + + + + | [facility] | [address] | [place], [place] | [phone] | | HOSPITAL LABORATORY | | [address] | | + + + + + CT Angiogram Head Neck (05/20/2018 12:07 PM PST) + + | Specimen | + + | | + + + + + | Narrative | Performed At | + + + | [address] | [facility] | | [place], [place] [address] | | | NAME: ANTONIETTA BLANKENSHIPGERMAINE SHEARER DATE: 05/20/2018 : | | | 1945 PT GENDER: F ROOM: IN Physician: ORALIA | | | ORQUE PID3: [id number] CC TO: MR#: | | | PROCEDURE: [...] | | 05/20/2018 1:03 PM at workstation [id number] | | + + + + + | Procedure Note | + + | Victor Hugo, Rad Results In - 05/20/2018 1:15 PM PST [facility] | | [address] | | [place], [place] [address] | | | | | | NAME: GERMAINE BARBOUR DATE: 05/20/2018 | | : 1945 PT GENDER: F ROOM: IN | | Physician: ORALIA NEVAREZ PID3: [id number] | | CC TO: MR#: | | [...] | | | at | | workstation [id number] | + + + +---------+ + + [...] Developer | | | | | | Expiration [...] + + | Testing Performed at: [facility] [place] [facility] CLIA: [id number] - [address] | REFERENCE LAB | | [place] [address] | [facility] | + + + + + + + + | Performing | Address | City/State/Zipcode | Phone Number | | Organization | | | | + + + + + | REFERENCE LAB | [address] | [place], [place] | [phone] | | [facility] | | [address] | | + + + + + | REFERENCE LAB | [address] [facility] | [place], [place] | [phone] | | [facility] | | [address] | | + + + + + Ferritin (05/20/2018 11:20 AM PST) + +-------+ + + + | Component | Value | Ref Range | Performed | Pathologist | | | | | At | Signature | + +-------+ + + + | FERRITIN | 11 | 5 - 93 ng/mL | [facility] | | | | | | [facility] | | | | | | HOSPITAL | | | | | | LABORATORY | | + +-------+ + + + + + | Specimen | + + | Blood | + + + + + + + | Performing | Address | City/State/Zipcode | Phone Number | | Organization | | | | + + + + + | [facility] | [address] | [place], [place] | [phone] | | HOSPITAL LABORATORY | | [address] | | + + + + + [...] | + + + + + | [facility] | [address] | [place], [place] | [phone] | | HOSPITAL LABORATORY | | [address] | | + + + + + Magnesium (05/20/2018 6:50 AM PST) + +-------+ + + + | Component | Value | Ref Range | Performed | Pathologist | | | | | At | Signature | + +-------+ + + + | Magnesium | 1.9 | 1.8 - 2.4 mg/dL | [facility] | | | | | | COMMUNITY [...] | + + + + + | [facility] | [address] | [place], [place] | [phone] | | HOSPITAL LABORATORY | | [address] | | + + + + + [...] 14 | 5 - 26 mg/dL | [facility] | | | | | | [facility] | | | | | | HOSPITAL | | | | | | LABORATORY | | + + + + + + | Creatinine | 0.82 | >0.60-<1.30 | [facility] | | | | | mg/dL | [facility] | | | | | | HOSPITAL | | | | | | LABORATORY | | + + + + + + | eGFR if not | >60Comment: GLOMERULAR | >=60 | [facility] | | | | FILTRATION | mL/min/1.73m2 | [facility] | | | [place] | RATE,ESTIMATED | | HOSPITAL | | | | mL/min/1.20q0Tske than | | LABORATORY | | | [...] | + + + + + | [facility] | [address] | [place], [place] | [phone] | | HOSPITAL LABORATORY | | [address] | | + + + + + [...] | MPV | 11.1 | fL | [facility] | | | [...] | + + + + + | [facility] | [address] | [place], [place] | [phone] | | HOSPITAL LABORATORY | | [address] | | + + + + + VAS Carotid Duplex Bilateral (05/19/2018 8:37 AM PST) + + | Specimen | + + | | + + + + + | Narrative | Performed At | + + + | [facility] [address] [place] [address] | [facility] | | [place], [place] [address] | | | NAME: GERMAINE BARBOUR DATE: 05/19/2018 : | | | 1945 PT GENDER: F ROOM: IN Physician: ORALIA | | | ROQUE PID3: [id number] CC TO: MR#: | | | PROCEDURE: [...] | | 05/19/2018 3:20 PM at workstation [id number] | | + + + + + | Procedure Note | + + | Victor Hugo, Rad Results In - 05/19/2018 3:50 PM [facility] | | [address] [facility] | | [place], [place] [address] | | | | | | NAME: GERMAINE BARBOUR Jesus DATE: 05/19/2018 | | : 1945 PT GENDER: F ROOM: IN | | Physician: ORALIA NEVAREZ PID3: [id number] | | CC TO: MR#: | | [...] | | | at | | workstation [id number] | + + + +---------+ + + [...] | MPV | 11.2 | fL | [facility] | | | [...] | + + + + + | [facility] | [address] | [place] | [phone] | | HOSPITAL LABORATORY | | [address] | | + + + + + [...] 89 | 70 - 110 mg/dL | [facility] | | | | | | COMMUNITY | | | | | | HOSPITAL | | | | | | LABORATORY | | + + + + + + | BUN | 18 | 5 - 26 mg/dL | [facility] | | | | | | COMMUNITY | | | | | | HOSPITAL | | | | | | LABORATORY | | + + + + + + | Creatinine | 0.76 | >0.60-<1.30 | [facility] | | | | | mg/dL | [facility] | | | | | | HOSPITAL | | | | | | LABORATORY | | + + + + + + | eGFR if not | >60Comment: GLOMERULAR | >=60 | [facility] | | | | FILTRATION | mL/min/1.73m2 | [facility] | | | [place] | RATE,ESTIMATED | | HOSPITAL | | | | mL/min/1.81n4Oeck than | | LABORATORY | | | [...] 7.9 (L) | 8.3 - 10.0 | [facility] [...] | + + + + + | [facility] | [address] | [place], [place] | [phone] | | HOSPITAL LABORATORY | | [address] | | + + + + + Magnesium (05/19/2018 4:50 AM PST) + +-------+ + + + | Component | Value | Ref Range | Performed | Pathologist | | | | | At | Signature | + +-------+ + + + | Magnesium | 1.8 | 1.8 - 2.4 mg/dL | [facility] | | | | | | COMMUNITY [...] | + + + + + | [facility] | [address] | [place], [place] | [phone] | | HOSPITAL LABORATORY | | [address] | | + + + + + [...] | + + + + + | [facility] | [address] | [place], [place] | [phone] | | HOSPITAL LABORATORY | | [address] | | + + + + + XR Hand Right 3 + Vw (05/18/2018 4:55 PM PST) + + | Specimen | + + | | + + + + + | Narrative | Performed At | + + + | [address] | [facility] | | [place], [place] [address] | | | NAME: GERMAINE BARBOUR DATE: 05/18/2018 : | | | 1945 PT GENDER: F ROOM: Physician: ORALIA | | | ROQUE PID3: [id number] CC TO: MR#: | | | PROCEDURE: [...] | | at | | | workstation [facility]-[id number] | | + + + + + | Procedure Note | + + | Javier Gay Results In - 05/18/2018 5:05 PM [facility] | | [address] [facility] | | [place], [place] [address] | | | | | | NAME: GERMAINE BARBOUR DATE: 05/18/2018 | | : 1945 PT GENDER: F ROOM: ER | | Physician: ORALIA NEVAREZ PID3: [id number] | | CC TO: MR#: | | [...] | | | at workstation | | [employer]ER-[id number] | | | | | | | [...] Performed At | + + + | [address] | [facility] | | [place], [place] [address] | | | NAME: GERMAINE BARBOUR DATE: 05/18/2018 : | | | 1945 PT GENDER: F ROOM: ER Physician: ORALIA | | | ROQUE PID3: [id number] CC TO: MR#: | | | This [...] | with MRI if indicated. at workstation [id number] ADDENDUM #1 | | | Add communication: Communication: Relayed findings to | | | Roque on 05/18/18 at 0608. Gave her contact info for Dr. Nieves./earle | | | Transcribed by: EARLE at 05/18/2018 5:37 PM at workstation [id number] | | + + + + + | Procedure Note | + + | Victor Hugo, Rad Results In - 05/18/2018 6:05 PM [facility] | | [address] | | [place], [place] [address] | | | | | | NAME: GERMAINE BARBOUR Jesus DATE: 05/18/2018 | | : 1945 PT GENDER: F ROOM: ER | | Physician: ORALIA NEVAREZ PID3: [id number] | | CC TO: MR#: | | [...] | | | at workstation | | My Visual Brief-[id number] | | | | ADDENDUM #1 | | | | | | Add communication: | | Communication: Relayed findings to Dr. Nevarez on 05/18/18 at 1736. Gave her | | contact info for Dr. Nieves./earle | | | | Transcribed by: EARLE at 05/18/2018 5:37 PM | | | | at workstation | | [employer]CHOLOGICAL EXAMINER-[id number] | + + + +---------+ + + [...] | + + + + + | [facility] | [address] | [place], [place] | [phone] | | HOSPITAL LABORATORY | | [address] | | + + + + + Urinalysis With Microscopic (05/18/2018 4:03 PM PST) + + + + + + | Component | Value | Ref Range | Performed | Pathologist | | | | | At | Signature | + + + + + + | Color, | Yellow | Straw, Yellow, | [facility] | | | Urine | | Light Yellow | COMMUNITY | [...] - 1.030 | [facility] | | | [place], | | | COMMUNITY | | | [...] + + + + + + | White Blood | 6-10 (A) | None Seen /HPF | [facility] | | | Cells, | | | COMMUNITY | | | Urine | | | HOSPITAL | | | | | | LABORATORY | | + + + + + + | Red Blood | 0-2 (A) | None Seen /HPF | [facility] | | | Cells, | | | COMMUNITY | | | Urine | | | HOSPITAL | | | | | | LABORATORY | | + + + + + + | Squamous | Many (A) | None Seen, | [facility] | | | Epithelial | | Trace, Few /LPF | COMMUNITY | | | Cells, | | | HOSPITAL | | | Urine | | | LABORATORY | | + + + + + + | Bacteria, | 4+ (A) | None Seen, | [facility] | | | Urine | | Trace /HPF | COMMUNITY | [...] | + + + + + | [facility] | [address] | [place], [place] | [phone] | | HOSPITAL LABORATORY | | [address] | | + + + + + [...] | + + + + + | [facility] | [address] | [place], [place] | [phone] | | HOSPITAL LABORATORY | | [address] | | + + + + + XR Chest AP Portable (05/18/2018 3:34 PM PST) + + | Specimen | + + | | + + + + + | Narrative | Performed At | + + + | [facility] [address] [place] [address] | [facility] | | [place], [place] [address] | | | NAME: GERMAINE BARBOUR DATE: 05/18/2018 : | | | 1945 PT GENDER: F ROOM: ER Physician: ORALIA | | | ROQUE PID3: [id number] CC TO: MR#: | | | PROCEDURE: [...] evidence of acute cardiopulmonary disease. at workstation [id number] | | | | | + + + + + | Procedure Note | + + | Victor Hugo, Rad Results In - 05/18/2018 3:50 PM [facility] | | [address] | | [place], [place] [address] | | | | | | NAME: GERMAINE BARBOUR DATE: 05/18/2018 | | : 1945 PT GENDER: F ROOM: ER | | Physician: ORALIA NEVAREZ PID3: [id number] | | CC TO: MR#: | | [...] | | | at | | workstation [id number] | | | | | | | [...] | + + + + + | [facility] | [address] | [place], [place] | [phone] | | HOSPITAL LABORATORY | | [address] | | + + + + + Troponin I (05/18/2018 3:11 PM PST) + +-------+ + + + | Component | Value | Ref Range | Performed | Pathologist | | | | | At | Signature | + +-------+ + + + | Troponin I | 0.030 | 0.000 - 0.090 | [facility] | | | | | ng/mL | [...] hours are at higher risk of or [place] at 47 | HOSPITAL | | hours [...] | + + + + + | [facility] | [address] | [place], [place] | [phone] | | HOSPITAL LABORATORY | | [address] | | + + + + + B Type Natriuretic Peptide (05/18/2018 3:11 PM PST) + + + + + + | Component | Value | Ref Range | Performed | Pathologist | | | | | At | Signature | + + + + + + | NT-proBNP | 1,571 (H) | 0 - 125 pg/mL | [facility] | | | | | | [facility] [...] | + + + + + | [facility] | [address] | [place], [place] | [phone] | | HOSPITAL LABORATORY | | [address] | | + + + + + [...] | + + + + + | [facility] | [address] | [place], [place] | [phone] | | HOSPITAL LABORATORY | | [address] | | + + + + + [...] | + + + + + | [facility] HOS[facility] | [address] | [place], [place] | [phone] | | HOSPITAL LABORATORY | | [address] | | + + + + + Comprehensive Metabolic Panel (05/18/2018 3:11 PM PST) + + + + + + | Component | Value | Ref Range | Performed | Pathologist | | | | | At | Signature | + + + + + + | Na | 146 (H) | 135 - 144 | [facility] | | | | | mmol/L | [...] (H) | 70 - 110 mg/dL | [facility] | | [facility] | | | | | | LABORATORY | | + + + + + + | BUN | 21 | 5 - 26 mg/dL | [facility] | [facility] | | | | | | LABORATORY | | + + + + + + | Creatinine | 0.98 | >0.60-<1.30 | [facility] | | | | | mg/dL | COMM[facility] | | | | | | HOSPITAL | | | | | | LABORATORY | | + + + + + + | eGFR if not | 56 (L)Comment: | >=60 | [facility] | | | [facility] | GLOMERULAR FILTRATION | mL/min/1.73m2 | [facility] | | | [place]ER | RATE,ESTIMATED | | HOSPITAL | | | | mL/min/1.46b5Miey than | | LABORATORY | | | [...] 6.6 | 6.6 - 8.5 g/dL | [facility] | | | Protein | | | COMMUNITY | | | | | | HOSPITAL | | | | | | LABORATORY | | + + + + + + | AST | 22 | 16 - 38 U/L | [facility] | | | | | | COMMUNITY | | | | | | HOSPITAL | | | | | | LABORATORY | | + + + + + + | ALT | 14 (L) | 18 - 63 U/L | [facility] | | | | | | COMMUNITY | | | | | | HOSPITAL | | | | | | LABORATORY | | + + + + + + | Alkaline | 74 | 50 - 136 U/L | [facility] | | | Phosphatase | | | [...] | + + + + + | [facility] | [address] | [place], [place] | [phone] | | HOSPITAL LABORATORY | | [address] | | + + + + + [...] | + + + + + | [facility] | [address] | [place], [place] | [phone] | | HOSPITAL LABORATORY | | [address] | | + + + + + [...] | | | | First dose on Fri05/20/18 at | | AM PST | | [...] | tablet 25 mg 25 mg, Oral, | 19 9:38 | | | | | TIMES DAILY, First dose (after | | AM PST | | | | | last modification) on [facility] 05/19/18 | | | | | | [...] | tablet 50 mg 50 mg, Oral, | | 19 8:07 | | | | | TIMES DAILY, First dose on Fri | | PM [...] 4:23 | | | | | ONCE, Fri05/18/18 at 1630, For 1 | | PM [...] | | | HOUR, First dose on Fri05/18/18 | | | | | | | [...]
--- OUTSIDE RECORDS SUMMARY | ~2019-09-05 | XMS | Encounter Summary ---
Demographics + + + | Address | [address] | | | [place] [address] | + + + | Home Phone | | + + + | Preferred Language | Unknown | + + + | Marital Status | | + + + | Mormonism Affiliation | PRO | + + + | Race | White | + + + | Ethnic Group | Not or | + + + Author + + + | Author | [facility] | + + + | Organization | [facility] | + + + | Address | Unknown | + + + | Phone | Unavailable | + + + Support + + + + + | Name | Relationship | Address | Phone | + + + + + | Hector Mack | ECON | [address] | | | | | [place] | | | | | [address] | | + + + + + Care Team Providers + +------+ + | Care Kapok And Cotton Machine Operator Name | Role | Phone [...] | | | | Wood | Mary Sanchez [facility] | | | | | | Mary Sanchez | [facility], | | | | | | [place], [place] | 10th Floor | | | | | | [address] | [place], [place] | | | | | | | [address] | | | | | | | Phone: | | | | | | | [phone] | | | | | | | Fax: | | | | | | | [phone] | +--------+--------+ + + + + Diagnostic [...] CT CTA | Socorro Genao MD | s [address] | | | | | HEAD WITH | [address] | | | | | CONTRAST | South | Mary Sanchez [facility]MIS | | | | | | [address] | Hospital, | | | | | | [place], [place] | 10th Floor | | | | | | [address] | [place], [place] | | | | | | Phone: | [phone] | | | | | | [phone] | Phone: | | | | | | Fax: | [phone] | | | | | | [phone] | Fax: | | | | | | | [phone] | +--------+--------+ + + + + Diagnostic Testing (Routine) +--------+--------+ + + + + | Status | Reason | Specialty | Diagnoses / | Referred By | Referred To | | | | | Procedures | Contact | Contact | +--------+--------+ + + + + | Closed | | Radiology | Procedures | Rachael | [facility] | | | | | MRI BRAIN | Raman Barrett, | [address] | | | | | W[address] CONTRAST | [place] [address] | Wood Hernandez | | | | | | [address] [place] | | | | | | Mary Sanchez | [facility] | | | | | | [facility] | | | | | | [address] | [place], [place] | | | | | | Phone: | [phone] | | | | | | [phone] | Phone: | | | | | | Fax: | [phone] | | | | | | [phone] | Fax: | | | | | | | [phone] | +--------+--------+ + + + + Reason [...] + + | 04/21/ | Hospital | [facility] [address] | Bryan Adams MD | | | 2012 - | Encounter | [address] | [address] | | | | | [id number] [facility] | [facility] | | | 04/24/ | | [facility], | [place] [address] | | | 2012 | | [place] [address] | [phone] | | | | | [phone] | | | | | | | Chaim Vizcarra MD | | | | | | [address] | | | | | | Park [facility] | | | | | | [place] [address] | | | | | | [phone] | | | | | | | [...] chronic back pain, who tripped on some guitar cords 10 days prior to admission, in [...] fracture, and she was subsequently transferred to [facility] for escalation of care. On comparison to [...] Derm follow-up closer to her home in [place]. Medications: Discharge Medication List as of 04/24/2012 [...] Attending Physician: MD Tuan Sethi MD Neurology Sustainable Communities Designer Pager [phone] I saw and evaluated the patient. I agree with the findings and the plan of care as yesika lares in the resident s note. Halley Noriega MD Reducing Salon Attendant Department of Neurology [facility] DEPARTMENT: Neurology Attending - [id number] Place of Service: Date of Service: 04/24/2012 CSN: [id number] Suggestive Modifier: GC - Resident Present Suggested CPT: 56808 - Discharge Day mgmt up to 30 [...] to re-consult, any questions. DANIELLE WYNN PA-C [facility] [address]K [address] [address] [place] [address] hPetrona ayala PA - 04/23/2012 10:44 AM PSTFormatting of this note might be different from the orig ina. NEUROSURGERY DAILY PROGRESS NOTE Author: DANIELLE WYNN [...] HCT 35.4* 03/13/2011 7:46 AM HCT See [facility] 03/11/2011 5:13 PM WBC 6.8 04/23/2012 7:45 AM WBC 6.4 03/13/2011 7:46 AM WBC See [facility] 03/11/2011 5:13 PM PLT 209 04/23/2012 7:45 AM PLT 217 03/13/2011 7:46 AM PLT See [facility] 03/11/2011 5:13 PM CULTURE RESULT (no units) Date Value 03/11/2011 Urine Culture Source...............: Voided Urine sensitivities Culture: Multiple organisms are present indicating probable contamination or colonization not related to infection. Further work-up of these organisms may re sult in clinically misleading information due to the low numbers and/or mixture of organisms present. Recollection is suggested if clinically indicated. Final Rep ort Resulted: 03/13/11 RLAnnabelle ([facility]) [facility] [address] [place] [address] STUDY: SPINE CERVICAL 2 VWS FLEX/EXT 04/22/12 [...] otherw ise intact. Motor 5/5 except LUE maintenance mechanic supervisor 4/5 Sensation intact to light touch Assessment [...] C collar Will continue to follow. FABIO JACOBSEN-C [facility] [address] [address]/[facility] [place] [address] Halley Haddad MD - 04/23/2012 8:37 AM [...] 04/20/12. Attending Radiologists: Joseph Hale MD Assessment: Germaine Heard is a 66 y.o. Female w [...] Hari, attending physician, who agrees with the [facility] assessment and plan. VERA COOK MD,MPH Neurology Resident [id number] I performed a history and physical examination [...] it requires holding plavix. Halley Noriega MD Reducing Salon Attendant Department of Neurology [facility] DEPARTMENT: Neurology Attending - [id number] Place of Service: [facility] Date of Service: 04/22/2013 CSN: [id number] Suggestive Modifier: None Suggested CPT: 76914 - Initial Visit, Level 2 Suggested Diagnosis: Multiple cranial neuropathies ridges, Socorro Genao MD - 04/22/2012 11:03 AM PSTExcellent medical student note. Please reference resident and attend ing notes for additional/further details. SOCORRO JARRELL MD Neurological Surgery, PGY-2 ormanek, Cedric - 0 04/22/2012 11:03 AM PST Medical [...] and face w eakness and referred to [facility] for possible cervical fracture. MRI suggests infarcts [...] MS4 Visiting Medical Student on Neurological Surgery Socorro Galdamez MD - 04/22/2012 7:51 AM [facility] NEUROSURGERY PROGRESS NOTE Author: SOCORRO [...] Tongue midline Trace left pronator drift Slowed dxgzsw-ou-btyk movements with mild end-point dysmetria 5/5 bilateral [...] symptoms/findings SOCORRO JARRELL MD Neurological Surgery, PGY-2 iktoriya Downs MD - 04/22/2012 7:47 AM PST [facility] Progress Note Team Pager: [phone] Attendin Attending Automat Watcher: Primary Service Attending: MD Bryan Espinosa MD [...] Intake/Output Summary (Last 24 hours) at 04/22/12 0765 Last data filed at 04/22/12 0700 Gross [...] 0659 04/22/12 07 - 04/23/12 0659 Shift 1625-4346 6847-2753 8422-3668 Daily Total 3673-7320 4474-0155 7301-5373 Daily Total I N T A K [...] therapy once cleared OTHER Dispo Transfer to 10K pending neuro recs Relevant Risks: This patient is currently at risk for the following: cerebral edema, barry ctrolyte imbalance, hyponatremia and ischemic stroke; acute renal failure, dysphagia, edema, ICU delirium, malnutrition and UTI. This patient has been staffed with Dr. Black, attending physician, who agrees with the abo ve assessment and plan. Viktoriya Downs MD PGY2 Neurology Pager [phone] documented in t his encounter Plan of [...] [facility] | [address] | [place], [place] | | | DELICIA POINT OF CARE | [address] | [address] | | | TESTS | | | [...] [facility] | [address] | [place] [address] | | | SERVICES, CORE | PARK [...] [facility] | [address] | [place] [address] | | | SERVICES, CORE | PARK [...] [facility] | [address] | [place] [address] | | | MATT, BLU | [address] | | | + + + + + CAPILLARY BLOOD GLUCOSE (NO CHG), POC (04/23/2012 10:00 PM PST) + +---------+ + + + | Component | Value | Ref Range | Performed | Pathologist | | | | | At | Signature | + +---------+ + + + | BLOOD | 140 (H) | 60 - 99 mg/dL | [facility] - | | | GLUCOSE, | | [...] + + + | [facility] | 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 The patient was seen and examined with | | | the attending physician. We discussed the recommendations listed | | | above. Trevor Sosa M.D. Resident, Department of | | | Dermatology [facility] Attending | | | Physician Attestation I personally interviewed, examined the patient, | | | and discussed management with the resident. I reviewed and edited | | | the resident's note and agree with the documented findings and plan | | | of care. 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[employer] Social 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 Main Topics | | Smoking [...] Inhalation, Q4H PRN, Viktoriya Starr | | Lanny Downsificial tears (hypromellose) (aka NATURES TEARS) 0.4 % [...] | g, Oral, Q15MIN PRN, Viktoriya Downs MDgulou gum (aka BENEFIBER) oral powder 1 | | Packet, 1 Packet, Oral, DAILY PRN, Socorro Jarrell MDguar gum (aka BENEFIBER) oral | | powder 1 Packet, 1 Packet, Feeding Tube, DAILY PRN, Socorro aJrrell MDinsulin regular | | (aka HUMULIN R) [...] mg, 5-15 mg, Oral, Q3H PRN, Socorro Jrarell MD, | | 10 mg at 04/23/12 [...] | follow-up closer to her home in [place]; would f/u with a echocardiologist there if not | | improved on topicalsPlease contact us with further questions. The patient was seen and | | examined with the attending physician. We discussed the recommendations listed | | above.Trevor Sosa M.D.Resident, Department of [place]ology[place] | | [place] Attending Physician AttestationI personally interviewed, examined the | | patient, and discussed management with the resident. I reviewed and edited the | | resident's note and agree with the documented findings and plan of care. Khoa Lee | | MD Kaleb, PhDAssistant Professor, Department of DermatologyFormerly [facility], [facility] & [employer] | | [facility] DEPARTMENT: [id number] [facility] Date | | of Service: 04/23/2012 : [id number] Modifier: | | GC Resident Involved: GC Resident InvolvedSuggested CPT: 75443 - Initial, Detailed; Low | | complex [...] findings of [facility]'s | | | |PATH (2009): | |MICROSCOPIC DESCRIPTION: There are three punch [...] to follow-up closer to her home in [place]; would f/u with a echocardiologist there if not improved on topicals | | | |Please contact us with further questions. The patient was seen and examined with the attend ing physician. We discussed the recommendations listed above. | | | | | |Trevor Sosa M.D. | |Resident, Department of Dermatology | |[facility] | | | |Attending Physician Attestation | |I personally interviewed, examined the patient, and discussed management with the resident. I reviewed and edited the resident's note and agree with the documented findings and plan of care. | | | | | |Khoa Manuel MD, PhD | |Reducing Salon Attendant, Department of Dermatology | |[facility] | | | |[facility] DEPARTMENT: [id number] [facility] | |Place of Service:[address]- Inpatient | |Date of Service: 04/23/2012 | | | |CSN: [id number] | |Suggested Modifier: GC Resident Involved: GC Resident Involved | |Suggested CPT: 92060 - Initial, Detailed; Low complex 30 min [...] + + + + | [facility] | [address] | [place], [place] | | | [place] [facility] | [address] | [address] | | | TESTS | | | [...] | | + +---------+ + + | [facility] DEPARTMENT OF | | | | [...] + | [facility] - | [address] | [place] [address] | | | [place] | | | [...] + | [facility] - | [address] | [place] [address] | | | [place] | | | [...] + | [facility] - | [address] | [place] [address] | | | [place] | | | [...] [facility] | [address] | [place] | | | MARLEEN NESBITT OF LANCE | [address] | [address] | | | TESTS | | | | + + + + + ANTI-DS DNA (TEODORO), SERUM (04/23/2012 11:20 AM PST) + + [...] | + + + + + | [facility] - | [address] | [place] [address] | | | [facility] | | | | + + + [...] | prevalent in the general | | [place] | | | | population, and in [...] - | | | | | | [place] | | + + + + + + + + | Specimen | + + | Blood - Blood | + + + + + + + | Performing | Address | City/State/Zipcode | Phone Number | | Organization | | | | + + + + + | [facility] - | [address] | [place] [address] | | | [place] | | | [...] <200: | 180 - 914 pg/mL | [facility] - | | | B12, SERUM | Severe deficiency. If | | AIRPORT - | | | | supplementation does not | | [facility] | | | | correct consider | [...] if | | | | | | [id number] >400: | | | | | | [...] + | [facility] - | [address] | [place] [address] | | | [place] | | | | + + + [...] by | | | | | | [address] | | | | | | Hreon Garcia, [facility],[place] | | | | | | [address] | | | | | | [phone].Ubiquisyslab. | | | | | | Alma [...] + + | [facility] | [address] | [place], [place] | | | UNIV PTH - INTFC | | [address] | | + + + + + [...] | + + + + + | [facility] - | [address] | [place] [address] | | | [place] | | | [...] | + + + + + | [facility] - | [address] | [place] [address] | | | [place] | | | [...] + | [facility] - | [address] | [place] [address] | | | [place] | | | [...] [facility] | [address] | [place] [address] | | | SERVICES, CORE | PARK [...] + + + + + + | WATCH [employer]ISH[employer] | Negative | Negative | [facility] [...] 7.0-10 | SERVICES, | | >10 Abraham WATCH CASE POLISHER AB U/ml <5.0 5.0-10 | SPECIAL IMM [...] | + + + + + | [facility] | [address] | [place] [address] | | | SERVICES, SPECIAL | MARY [...] | + + + + + | [facility] | [address] | [place] [address] | | | SERVICES, SPECIAL | PARK [...] | + + + + + | [facility] | [address] | [place] [address] | | | SERVICES, CORE | MARY [...] | + + + + + | [facility] | [address] | [place] [address] | | | MATT, BLU | [address] | | | [...] | + + + + + | [facility] | [address] | [place] [address] | | | SERVICES, BLU | MARY [...] | | | | | | STEVE COYLEFAUSTINAKary 04/23/2012 | | | | | | 8:53 AM | | | | + + + + + + + + | Specimen | + + | | + + + +---------+ + + | Performing | Address | City/State/Zipcode | Phone Number | | Organization | | | | + +---------+ + + | [facility] DEPARTMENT OF | | | | [...] | | + +---------+ + + | [facility] DEPARTMENT OF | | | | [...] [facility] | [address] | [place], [place] | | | MARLEEN NESBITT OF CARE | [address] | [address] | | | TESTS | | | [...] [facility] | [address] | [place], [place] | | | MARLEEN NESBITT OF [place] | [address] | [address] | | | TESTS | | | [...] back | | | | | | [id number]. Attending | | | | | | [...] [facility] | [address] | [place], [place] | | | MARLEEN NESBITT OF [place] | [address] | [address] | | | TESTS | | | | + + + + + RYAN WHITAKER ONLY (04/22/2012 6:45 AM PST) + + + [...] [facility] | [address] | [place] [address] | | | SERVICES, CORE | PARK [...] | + + + + + | [facility] | [address] | [place] [address] | | | SERVICES, CORE | MARY [...] | | | | Final | | [place] | | | | CULTURE RESULT:Multiple | [...] + | [facility] - | [address] | [place] [address] | | | [place] | | | [...] | | LABORATORY | | | SERVICES, CORE | + + + + + + + + | Performing | Address | City/State/Zipcode | Phone Number | | Organization | | | | + + + + + | [facility] | [address] | [place] [address] | | | SERVICES, BLU | MARY [...] (H) | 60 - 99 mg/dL | [facility] - | | | GLUCOSE, | | [...] [facility] | [address] | [place], [place] | | | MARLEEN NESBITT OF [place] | [facility] | [address] | | | TESTS | | | [...] [facility] | [address] | [place] [address] | | | SERVICES, CORE | PARK [...] | + + + + + | [facility] | [address] | [place] [address] | | | MATT, | [address]ARY S[address]HE[address] | | | | TRANSFUSION MEDICINE | [...] + | [facility] | [address] | [place] [address] | | | SERVICES, | [address] [...] | + + + + + | [facility] | [address] | [place] [address] | | | SERVICES, CORE | PARK [...] | + + + + + | [facility] | [address] | [place] [address] | | | SERVICES, CORE | PARK [...] [facility] | [address] | [place] [address] | | | MATT, BLU | [address] | | | + + + [...] | | | | | | Until 04/24/12 at 1731, mild | | | | [...] | | | dose on Fri04/22/12 at 1030, | | AM PST | [...] | | | 04/21/12 at 2150, Until Wed | | | | | [...] | | | | | CONTINUOUS, Starting Fri04/21/12 | | PM PST | | | [...] | | | | | NEEDED, Starting Fri04/21/12 at | | | | | | | 2150, Until Fri04/24/12 at 1731, | | | | | [...] | | | | | | on Fri04/24/12 at 0900 | | | | | [...] senna-docusate (aka SENOKOT S) | Given | 04/24/19 | 1 [...]
--- OUTSIDE RECORDS SUMMARY | ~2019-09-05 | XMS | Encounter Summary ---
Demographics + + + | Address | [address] | | | [place] [address] | + + + | Home Phone | | + + + | Preferred Language | Unknown | + + + | Marital Status | | + + + | Cheondoism Affiliation | 1077 | + + + | Race | Unknown | + + + | Ethnic Group | Unknown | + + + Author + + + | Author | [facility] | | | and [place] | + + + | Organization | [facility] | | | and [place] [...] [place] | | | | | [address] | | + + + + + | Najma Xiong | ECON | Unknown | | + + + + + | Hector Mack | ECON | [address] | | | | | [place] | | | | | [address] | | + + + + + Care Team Providers + +------+ + | Care Packing And Final Assembly Supervisor Name | Role | Phone | + +------+ + PCP | Unavailable | + +------+ + Encounter Details +--------+ + + + + | Date | Type | Department | Care Team | Description | +--------+ + + + + | 03/01/ | Hospital | [facility] | | | | 1995 - | Encounter | MED CTR GENERIC OP | | | | | | CONV DEPT [address] | | | | 08/02/ | | [place], | | | | 1997 | | [place] [address] | | | | | | [phone] | | | +--------+ + + + [...]
--- OUTSIDE RECORDS SUMMARY | ~2019-09-05 | XMS | Encounter Summary ---
Demographics + + + | Address | [address] | | | [place] [address] | + + + | Home Phone [...] [place] | | | | | [address] | | + + + + + Care Team Providers + +------+ + | Care Lens Finisher Name | Role | Phone | + [...] + + | 03/12/ | Hospital | [address] | Renato Chow MD | | | 2010 - | Encounter | [address] | | | | | | [facility] | | | | 03/13/ | | [place], [place] | | | | 2010 | | [address] | | | | | | [phone] | | | +--------+ + + + [...] re removal. Feel free to call the [facility] urology clinic as needed for any additional questions . Your Follow-Up Plan Follow-up information has not been specified. Other Discharge Orders and Instructions Please contact Urology clinic ([phone]) during business hours or the Urology resident fleet operations manager ([phone]) after business hours for: 1. Redness or [...] Physician: Renato Chow MD Patient: GERMAINE HEARD [id number] 24H events/Subjective: No events overnight. Pain well [...] 03/13/11 0659 03/13/11699 - 03/14/11 0659 Shift 4029-8017 5933-2704 5650-6768 Daily Total 6079-3786 2969-2472 9805-1410 Daily Total I N T A K E [address] 1080 1600 I.V. 1550 952 620 6658 5 5 Shift Total 1550 1320 1880 4750 5 5 O U T P U T Urine 800 664 851 5679 200 200 Shift Total 800 692 052 1921 200 200 Medication: acetaminophen (aka TYLENOL) tablet [...] [facility] | [address] | [place] [address] | | | PATHOLOGY | [address] [...] | + + + + + | [facility] | [address] | [place] [address] | | | PATHOLOGY | [address] [...] Alvarez, | | | | | | [facility] [place] [address] | | | | | | [phone] | | | | | | | | | | | | [email or web address], | | | | | | Alma [...] [facility] | [address] | [place], [place] | | | [facility] | | [address] | | + + + + + [...]
--- OUTSIDE RECORDS SUMMARY | ~2019-09-05 | XMS | Encounter Summary ---
Demographics + + + | Address | [address] | | | [place] [address] | + + + | Home Phone | | + + + | Preferred Language | Unknown | + + + | Marital Status | | + + + | Gnosticist Affiliation | PRO | + + + [...] [place] | | | | | [address] | | + + + + + Care Team Providers + +------+ + | Care Graphics Artist Name | Role | Phone | [...] 01/14/ | Office | Preoperative | 1, [facility] Super[facility] [address] | Panniculitis; CAD | | 2007 | Visit | Medicine Clinic at | [address] | (Coronary Artery | | | | [facility] 4th Floor [address] | [place] [address] | Disease); DM Circ | | | | [address] | | Dis Type II, | | | | Mailcode: CH4S | | Uncontrolled (HCC); | | | | [facility] | | Other Specified | | | | and Healing, | | Pre-Operative | | | | Building 1,4th Floor | | Examination | | | | [place], [place] | | | | | | [address] | | | | | | [phone] | | | +--------+---------+ + + + [...] | + + +--------+ + + | [place] COLLECTION VENOUS | Procedures | Routin | [...] + + + + + | [facility] | [address] | [place] [address] | | | PATHOLOGY | [address] | | | + + + + + | [facility] DE[facility] | [address] | [place] [address] | | | PATHOLOGY | [address] [...] + + + + + | [facility] DEPARTMENT [facility] | [address] | [place] [address] | | | PATHOLOGY | [address] | | | + + + + + | [facility] DEPARTMENT OF | [address] | [place] [address] | | | PATHOLOGY | [address] [...] | + + + + + | [facility] | [address] | [place] [address] | | | PATHOLOGY | [address] | | | + + + + + | [facility] | [address] [place] [address] [address] | [place] [address] | | | PATHOLOGY | [address] [...] | + + + + + | [facility] | [address] | [place] [address] | | | PATHOLOGY | [address] | | | + + + + + | [facility] | [address] [facility] | [place] [address] | | | PATHOLOGY | [address] [...] Performed At | + + + | [id number] Estimated GFR > 60 mL/min/1.73 sq m if non- | [facility] | | Guyanese [address] Estimated GFR > 60 mL/min/1.73 sq m if | DEPARTMENT OF | | Guyanese GFR is estimated using the MDRD equation [...] | + + + + + | [facility] | [address] | [place] [address] | | | PATHOLOGY | [address] | | | + + + + + | [facility] DEPARTMENT OF | [address] | [place] [address] | | | PATHOLOGY | [address] [...] + + + + + | [facility]PARTMENT OF | [address] | [place] [address] | | | PATHOLOGY | [address] | | | + + + + + | [facility] | [address] | [facility] [place] [address] | | | PATHOLOGY | [address] [...] + + + | Please click | [facility] | | on view image for the detailed interpretation from [employer] results. | CARDIOLOGY | | | | + + + + + + + + | Performing | Address | City/State/Zipcode | Phone Number | | Organization | | | | + + + + + | [facility] | [address] | [place], [place] | | | CARDIOLOGY | [address] | [address] | | + + + + + | [facility] | [address] | [place], [place] | | | CARDIOLOGY | [address] | [address] | | + + + + + documented in this encounter Visit Diagnoses + + | Diagnosis | + + | Panniculitis Panniculitis, unspecified site | + + | CAD (coronary artery disease) Coronary atherosclerosis of unspecified type of vessel, | | [place] or graft | + + | Type II or unspecified type diabetes mellitus with peripheral circulatory disorders, | | uncontrolled(250.72) Type II or unspecified type diabetes mellitus with peripheral | | circulatory disorders, uncontrolled | + + | Other specified pre-operative examination | + + documented in this encounter
--- OUTSIDE RECORDS SUMMARY | ~2019-09-05 | XMS | Encounter Summary ---
Demographics + + + | Address | [address] | | | [place] [address] | + + + | Home Phone | | + + + | Preferred Language | Unknown | + + + | Marital Status | | + + + | Zoroastrian Affiliation | 1077 | + + + | Race | Unknown | + + + | Ethnic Group | Unknown | + + + Author + + + | Author | [facility] | | | and [place] | + + + | Organization | [facility] | | | and [place] | [...] [place] | | | | | [address] | | + + + + + | Najma Xiong | ECON | Unknown | | + + + + + | Hector Blankenship | ECON | [address] | | | | | [place] | | | | | [address] | | + + + + + Care Team Providers + +------+ + | Care Neurourologist Name | Role | Phone | + +------+ + | Tuan Chan MD | PCP | | + +------+ + Encounter Details +--------+ + + + + | Date | Type | Department | Care Team | Description | +--------+ + + + + | 08/21/ | Hospital | [facility] | Raphael Durán, | Seizure ([facility]); Acute | | 2019 - | Encounter | [facility] | MD Brionna PRUETT | cystitis without | | | | CARE FLOOR [phone] | [place] [address] [place] [address] | hematuria; History | | 08/27/ | | [address] | [address] | of stroke | | 2019 | | [place], [place] | | | | | | [address] | | | | | | [phone] | | | +--------+ + + + [...] documented as of this encounter Discharge Summaries Noe Bolton MD - 08/27/2018 1:03 PM PDTFormatting of this note might be different f rom the original. Discharge Summaries by Noe Bolton MD at 08/27/18 2997 Author: Noe Bolton MD Service: Hospitalist Author Type: Physician Filed: 08/28/18 2241 Date of Service: 08/27/18 2630 Status: Signed Publishing Agent: Noe Bolton MD (Physician) [facility] Service: Hospitalist Physician Discharge Summary Patient ID: Germaine Blankenship 1945 72 y.o. Admit date: 08/21/2018 Discharge date: 08/27/2018 Admitting Physician: Raphael Durán MD Discharge Physician: Noe Bolton MD Consultants: Treatment Team: Consulting Physician: Tash Herzog MD Admitting Provider: MD Sanford Hannah MD Primary Discharge Diagnoses: Principal Problem: New onset seizure (HCC) Active Problems: HTN (hypertension) CAD (coronary artery disease) S/P CABG x 4 Hyperlipidemia Paroxysmal atrial fibrillation (HCC) Poor short term memory Left sided lacunar infarction (HCC) Resolved Problems: * No resolved hospital problems. * HPI and Hospital Course: " Patient Summary: 72-year-old female with history of hypertension, hyperlipidemia, coronar y artery disease a status post CABG x4, history of alcohol abuse, history of drug use, histo ry of nephrolithiasis, history of recent stroke 6 months ago who was transferred from [facility] because of new onset seizures. She had one episode at home described to be generalized tonic-clonic lasting for 5 minutes with postictal state. In the emergency ro om, she had another witnessed 5-minute tonic-clonic movement. She was loaded with Keppra IV and was given Ativan prior to transfer to [facility]. She is here for further neurologic evalu ate. Of note, the patient was also diagnosed to have UTI and was started on ceftriaxone damian or to transfer to [facility]. According to the daughter, patient has not been seen by her regular primary care phys pippa for the past 1 and half years. Reportedly, she had a stroke 6 months ago and since, h as been having progressive functional decline. She was supposed to go to a long-term care acility but patient eventually declined this. Events Overnight: Seen and examined patient. Patient is interactive and pleasant. Had a good breakfast. Al so had a good BM today. Confused at baseline. Denies any complaints. She had another seiz ure like activity yesterday PM controlled with ativan PRN. "......... per progress note by Jesus Diop MD on 08/24/2018. Hospitalist course: Limitation of the discharge summary : discharging hospitalist took over care of this patien t on 08/25/2018. Patient was admitted to [facility] with diagnosis of new onset of seizures. Patient was evaluat ed by neurology. Dose of initial antiepileptic therapy with Keppra had to be adjusted as martina glass had recurrent episodes of seizure with subsequent resolution. Patient did well on the Keppra 750 mg p.o. twice daily without subsequent episodes of seizures. Patient clinically did well. She was declared medically stable for discharge on 08/27/2018. Patient was trans ferred to [facility] for further rehab therapy. Additional issues: 1. Repeat Keppra level in 1 week's time. Report results to neurology office for any neede d dose adjustment. 2. Patient reportedly has not been filling any of her medications since November 2017, bas ed on our contact with 2 pharmacies which are listed in EPIC chart. We assume patient has b een off all of her medications since that time. New prescription medications have been E pr escribed for the patient with destination the pharmacy being in [place]. 3. Chronic type II odontoid fracture . Likely from older injury. No cervical spine fract ures noted on CT head/neck after admission. Patient asymptomatic without complaints of neck pain. 4. CT scan of the brain identified chronic left basal ganglia and internal capsule lacunar infarct. Continue medical therapy. Past Medical History: Past Medical History Diagnosis Date Abnormal EKG Alcohol abuse, in remission sober since 1989 CAD (coronary artery disease) CAD (coronary artery disease) of bypass graft occluded SVG > RCA COPD (chronic obstructive pulmonary disease) ([facility]) Hydronephrosis of right kidney Hyperlipidemia Hypertension many years Kidney disease CT (myocardial infarction) ([facility]) 09/05/2012 NSTEMI Morbid obesity ([facility]) weighed over 500 lbs prior to bariatric surgery, lost > 300 lbs Recurrent nephrolithiasis S/P CABG x 4 1998 occluded SVG>RCA; patent CASAS>LAD, patent "Y" seq SVG>D1>OM2 (cath 09/10) S/P PTCA (percutaneous transluminal coronary angioplasty) 3.5x16, 2.75x32 Taxus TRAVIS mid-distal LCx (07/16/03) // 2.5x12 Promus Element TRAVIS R PDA, 3.5 x15 Promus Element TRAVIS distal RCA (09/05/12) Stroke ([facility]) 2013 Right-sided, left facial droop - resolved; mild residual memory deficit Type II diabetes mellitus ([facility]) resolved with weight loss following bariatric surgery Past Surgical History Procedure Laterality Date APPENDECTOMY BARIATRIC SURGERY 2005 CARDIAC CATHETERIZATION CHOLECYSTECTOMY CORONARY ANGIOPLASTY WITH STENT PLACEMENT 3.5x16, 2.75x32 Taxus TRAVIS mid-distal LCx (07/16/03) // 2.5x12 Promus Element TRAVIS R PDA, 3.5 x15 Promus Element TRAVIS distal RCA (09/05/12) CORONARY ARTERY BYPASS GRAFT 1998 CASAS>LAD; "Y" sequential SVG>D1>OM2; occluded SVG>RCA heart stent ORIF SHOULDER DISLOCATION W/ HUMERAL FRACTURE Left 2000 fx, fell on ice TONSILLECTOMY Discharged Condition: Stable for discharge as stated above. Significant Diagnostic Studies: X-ray Ribs Right W/pa Chest Result Date: 08/21/2018 RIGHT RIBS AND PA CHEST CLINICAL INFORMATION: Right rib pain COMPARISON: XR RIBS BILATERAL W PA CHEST (08/17/2018); FINDINGS: Postoperative changes of prior sternotomy and CABG. Mild cardiomegaly. Mild pulmonary vascular prominence but no overt failure or interstitial edema . The lungs are expanded free of infiltrate, effusion, pneumothorax. No obvious hilar or m ediastinal adenopathy. No displaced right rib fractures. No evidence of displaced right rib fracture Cardiomegaly and evidence of prior CABG but no overt failure No acute infiltrate Signed by: Chey Cruz Dwane Sign Date/Time: 10:28 PM X-ray Hip 2 View Right Result Date: 08/21/2018 RIGHT HIP TWO OR THREE VIEWS CLINICAL INFORMATION: Right Thigh/Hip pain after injury LORI RISON: None FINDINGS: No fracture or dislocation. No significant arthropathy or soft tissue abnormalities. Normal bone mineralization. Negative hip. Signed by: Chey Cruz Dwane Sign Date/Time: 08/21/2018 10:25 PM Echo Cardiac Adult Complete Result Date: 08/22/2018 Patient Name: GERMAINE BARBOUR Date of : 1945 Performi ng Physician: Miky Alamo ____ INDICATIONS Abnormal EKG CONCLUSIONS 1. The left ventricle is n ormal in size, mild concentric hypertrophy and normal systolic function EF 55-60%. 2. The ri ght ventricle is normal in size and function. 3. Mild tricuspid regurgitation and no pulmona ry hypertension. 4. There is no pericardial effusion. FINDINGS -------- ECG rhythm: Sinus rh ythm. ECG rhythm: Resting bradycardia (HR<60bpm). Study: A 2-dimensional transthoracic echoc ardiogram with m-mode, spectral and color flow Doppler was perfomed. Study: This was a techn ically adequate study. Left Ventricle: Overall left ventricular systolic function is normal with, an EF between 55 - 60 %. Left Ventricle: The left ventricle cavity size is normal. Lef t Ventricle: There is mild concentric left ventricular hypertrophy. Left Ventricle: No regio nal wall motion abnormalities. Left Ventricle: Pseudonormal LV diastolic filling pattern, co nsistent with elevated LA pressure and moderate dysfunction (Grade II). Right Ventricle: The right ventricle is normal in size and function. Left Atrium: The left atrium is markedly di lated. Right Atrium: The right atrium is moderately enlarged. Aortic Valve: The aortic valve is mildly calcified. Aortic Valve: There is no evidence of aortic regurgitation. Aortic Leandra ve: There is no evidence of aortic stenosis. Mitral Valve: Mild mitral regurgitation is pres ent. Mitral Valve: Mild mitral annular calcification present. Tricuspid Valve: The tricuspid valve appears structurally normal. Tricuspid Valve: Mild tricuspid regurgitation present. T ricuspid Valve: There is no evidence of pulmonary hypertension. Tricuspid Valve: The right v entricular systolic pressure (pulmonary artery systolic pressure), as measured by Doppler, i s 30.27mmHg. Pericardium: There is no pericardial effusion. Pericardium: No pleural effusion seen. MEASUREMENTS RA Area: 18.95 cm2 Ao asc: 4.39 cm Ao sinus: 3.04 cm LA Diam: 4.77 cm EDV(Teich): 102.98 ml IVSd: 1.19 cm LVIDd: 4.71 cm LVPWd: 1.22 c m LVOT Diam: 1.96 cm %FS: 35.54 % EF(Teich): 64.97 % ESV(Teich): 36.06 ml IVSs: 1. 52 cm LVIDs: 3.03 cm LVPWs: 1.82 cm SV(Teich): 66.91 ml RVIDd: 3.45 cm LAESV(A-L): 117.11 ml LAESV Index (A-L): 66.54 ml/m2 LAAs A2C: 29.59 cm2 LAESV A-L A2C: 105.11 ml LALs A2C: 7.07 cm LAAs A4C: 32.97 cm2 LAESV A-L A4C: 119.49 ml LALs A4C: 7.72 cm TA PSE: 1.59 cm HR: 48.54 BPM AV maxP.21 mmHg AV meanP.37 mmHg AV Vmax: 1.24 m/s AV Vmean: 0.86 m/s AV VTI: 33.73 cm ANATOLIY Vmax: 1.92 cm2 ANATOLIY (VTI): 1.95 cm2 AVAI Vmax: 0.00 cm2/m2 AVAI (VTI): 0.00 cm2/m2 LVCI Dopp: 1.81 l/minm2 LVCO Dopp: 3.19 l/ min HR: 48.32 BPM LVOT maxP.48 mmHg LVOT meanP.58 mmHg LVSI Dopp: 37.56 ml/m 2 LVSV Dopp: 66.11 ml LVOT Vmax: 0.78 m/s LVOT Vmean: 0.60 m/s LVOT VTI: 21.71 cm MV A Stewart: 0.34 m/s MV DecT: 569.43 ms MV E Stewart: 0.66 m/s MV E/A Ratio: 1.95 MV A Dur: 88.48 ms MV DecT: 581.48 ms Septal e': 0.04 m/s Septal E/e': 14.72 Lateral e': 0.0 5 m/s Lateral E/e': 13.17 HR: 47.99 BPM PV maxP.71 mmHg PV meanP.05 mmHg PV Vmax: 0.65 m/s PV Vmean: 0.48 m/s PV VTI: 17.71 cm PV maxP.70 mmHg PV Vmax: 0. 96 m/s RAP: 8 mmHg RV S': 0.07 m/s RVSP: 30.27 mmHg TR maxP.27 mmHg TR Vmax: 2.35 m/s Club Attendant: Authenticated by: Miky Alamo Report Date/Time: 08-22-2018 14:3 8:8 1. The left ventricle is normal in size, mild concentric hypertrophy and normal systolic fu nction EF 55-60%. 2. The right ventricle is normal in size and function. 3. Mild tricuspid r egurgitation and no pulmonary hypertension. 4. There is no pericardial effusion. Ct Head Cervical Spine Without Contrast Result Date: 08/21/2018 CT HEAD WITHOUT CONTRAST; CT CERVICAL SPINE WITHOUT CONTRAST CLINICAL INFORMATION: Head chey[place] n after fall. Patient found down next to her bed. COMPARISON: CT HEAD WO CONTRAST (08/21/19 19); PROCEDURE: CT Head: Axial non-contrast images were obtained through the head. CT Cervic al Spine: Thin section noncontrast axial images were obtained through the cervical spine. Mu ltiplanar reformations were obtained from the acquisition data. At least one of the followin g CT dose optimization techniques were used: Automated exposure control; Adjustment of mA an d/or kV according to patient size; Use of iterative reconstruction technique. FINDINGS: Ther e degrading of the images due to excessive motion. CT Head: Brain: No intracranial hemorrhag e, midline shift or pathologic mass effect. No cerebral edema, mass lesion, or evidence of i nfarct. There is chronic lacunar infarct of the left basal ganglia and internal capsule. The re is scattered hypoattenuation the cerebral white matter consistent with chronic small vess el ischemic changes. Ventricles and extra-axial fluid spaces: Normal. Paranasal sinuses and mastoid air cells: Normal. Calvarium and extracranial soft tissue: Normal. Orbits: Imaged po rtions of the orbits are normal. CT Cervical Spine: Alignment: Normal. Vertebrae: There is a chronic ununited type 2 odontoid fracture. The odontoid appears partially fused with the a nterior arch of C1. This is unchanged in appearance since previous studies. There is no vazquez dence of an acute fracture. Cervical disc levels: C3-4 there is mild posterior osteophytic s purring and hypertrophic uncovertebral degenerative changes. There mild hypertrophic facet osteoarthrosis. C5-6 there moderate to severe disc space narrowing. There posterior disc os teophyte complex. There bilateral hypertrophic uncovertebral degenerative changes. There i s no significant neural foraminal stenosis. C6-7 disc space is mildly narrowed. The spinal c anal is patent. Facets and posterior spinal elements: There is mild multilevel hypertrophic facet osteoarthrosis. There no evidence of fracture or subluxation. Paraspinal soft tissues : No evidence of acute paraspinal soft tissue abnormality. The thyroid gland demonstrates en largement of the right lobe with multiple nodules which does not appear substantially change d since the previous study. 1. Degrading of the images due to excessive motion. 2. No evidence of acute intracranial in jury. 3. Chronic lacunar infarct of the left basal ganglia and internal capsule. 4. No evide nce of cervical spine fracture. 5. Chronic ununited type 2 odontoid fracture. Dens appears partially fused to the anterior arch C1. 6. Discogenic spondylosis, most advanced at C5-6. S igned by: Chey Dorantes, Colton Sign Date/Time: 08/21/2018 5:52 PM Discharge Vitals: Vitals: 08/27/18 0752 08/27/18 1100 08/27/18 1130 08/27/18 1132 BP: 145/81 (!) 135/98 (!) 146/106 (!) 135/98 BP Location: Right forearm Left forearm Left forearm Pulse: 54 56 58 59 Resp: 16 16 Temp: 97.5 F (36.4 C) 98.5 F (36.9 C) TempSrc: Oral Oral SpO2: 91% 98% 98% Weight: Height: Discharge Exam: Physical Exam Constitutional: She appears well-developed. HENT: Head: Normocephalic. Mouth/Throat: Oropharynx is clear and moist. No oropharyngeal exudate. Poor dentition. Eyes: Pupils are equal, round, and reactive to light. Neck: Normal range of motion. Cardiovascular: Normal rate. No murmur heard. Pulmonary/Chest: Effort normal and breath sounds normal. No stridor. No respiratory distres s. She has no wheezes. Abdomina/Gl: Soft. Bowel sounds are normal. She exhibits no distension. There is no tendern ess. There is no guarding. Musculoskeletal: She exhibits no edema. Neurological: She is alert. Skin: Skin is warm. Capillary refill takes less than 2 seconds. She is not diaphoretic. LABS: Recent Labs Lab 08/27/18 0433 08/26/18 0630 08/22/18 0634 08/21/18 0633 WBC 5.71 5.90 5.78 9.41 HGB 10.3* 11.1* 11.0* 12.4 HCT 30.4* 32.8* 32.5* 37.2 PLT 169 195 198 157 NEUTOPHILPCT -- -- 54.33 77.05 MONOPCT -- -- 6.07 5.56 Recent Labs Lab 08/27/18 0433 08/26/18 1421 08/26/18 0630 08/23/18 0536 08/21/18 0633 NA 145 -- 147* 145 < > 148* K 4.3 4.4 3.7 4.0 < > 3.2* CL 111* -- 113* 110* < > 112* CO2 28 -- 31 29 < > 30 BUN 12 -- 9 7* < > 8 CREATININE 0.7 -- 0.73 0.7 < > 0.57 PROT -- -- 5.0* -- -- 5.3* BILITOT -- -- 0.2 -- -- 0.4 ALT -- -- 8* -- -- 15 AST -- -- 15 -- -- 29 < > = values in this interval not displayed. Phosphorus: Recent Labs Lab 08/27/18 0433 PHOS 3.7 Recent Labs Lab 08/27/18 0433 08/26/18 0630 08/22/18 0634 MG 2.0 1.8 1.6* Disposition: [facility] Follow up: Tuan Chan MD [address] [facility] [id number] Schedule an appointment as soon as possible for a visit For hospitalization re-evaluation ; and further management of short-term memory problems am loree others. Tash Herzog MD [address] [place] [address] [place] [address] Schedule an appointment as soon as possible for a visit in 4 weeks For hospitalization re-evaluation ; and further management of seizures. Repeat Keppra leve l in 1 week's time and reported to neurology office for further management of Keppra therapy Medication List START taking these medications calcium carbonate 500 MG chewable tablet QTY: 120 tablet Refills: 0 Commonly known as: TUMS Take 1 tablet by mouth daily. levetiracetam 750 MG tablet QTY: 60 tablet Refills: 5 Commonly known as: KEPPRA Take 1 tablet by mouth 2 (two) times daily. miconazole 2 % powder QTY: 85 g Refills: 1 Commonly known as: MITRAZOL Apply to well cleansed and skin / skin folds bid ondansetron 4 MG disintegrating tablet QTY: 20 tablet Refills: 0 Commonly known as: ZOFRAN-ODT Take 1 tablet by mouth every 8 (eight) hours as needed for up to 7 days. pantoprazole 40 MG tablet QTY: 30 tablet Refills: 1 Commonly known as: PROTONIX Take 1 tablet by mouth every morning before breakfast for 60 days. Start taking on: 08/28/2018 senna 8.6 MG tablet QTY: 30 tablet Refills: 0 Commonly known as: SENOKOT Take 1 tablet by mouth daily as needed for Constipation. CHANGE how you take these medications albuterol 108 (90 Base) MCG/ACT inhaler QTY: 1 Inhaler Refills: 5 Commonly known as: PROVENTIL HFA;VENTOLIN HFA Inhale 2 puffs into the lungs every 4 (four) hours as needed for Wheezing or Shortness of B reath. What changed: reasons to take this metoprolol 25 MG 24 hr tablet QTY: 30 tablet Refills: 5 Commonly known as: TOPROL-XL Take 1 tablet by mouth daily. What changed: how much to take CONTINUE taking these medications atorvastatin 40 MG tablet QTY: 90 tablet Refills: 3 Commonly known as: LIPITOR Take 1 tablet by mouth nightly. clopidogrel 75 MG tablet QTY: 30 tablet Refills: 5 Commonly known as: PLAVIX Take 1 tablet by mouth daily. lisinopril 20 MG tablet QTY: 30 tablet Refills: 3 Commonly known as: ZESTRIL Take 1 tablet by mouth daily. You might also be taking other medications not listed above. If you have questions about an y of your other medications, talk to the person who prescribed them or your Primary Care Pro vider. STOP taking these medications buPROPion 75 MG tablet Commonly known as: WELLBUTRIN furosemide 20 MG tablet Commonly known as: LASIX HYDROcodone-acetaminophen 10-325 MG per tablet Commonly known as: NORCO morphine 15 MG 12 hr tablet Commonly known as: MS CONTIN potassium chloride 10 MEQ tablet Commonly known as: K-DUR Where to Get Your Medications These medications were sent to [facility] [facility] [place] - [address] [facility], [place] [address] albuterol 108 (90 Base) MCG/ACT inhaler atorvastatin 40 MG tablet calcium carbonate 500 MG chewable tablet clopidogrel 75 MG tablet levetiracetam 750 MG tablet lisinopril 20 MG tablet metoprolol 25 MG 24 hr tablet miconazole 2 % powder ondansetron 4 MG disintegrating tablet pantoprazole 40 MG tablet senna 8.6 MG tablet Noe Bolton MD 08/27/2018 1:21 PM documented in this encounter Medications at Time [...] tablet by | 30 | 0 | /20 | | | (PRINIVIL, ZESTRIL) | mouth Daily. | tablet | | 19 | | | 20 mg tablet | | | | | | + + + +---------+ + + | metoprolol | Take 1 tablet by | | 0 | 08/28/19 | | | succinate | mouth daily. | | | 19 | | | (TOPROL-XL) 25 mg 24 | [...] + + + +---------+ + + | albuterol 90 | Inhale 2 puffs into | | 0 | 08/28/19 | | | mcg/puff inhaler | the lungs every 4 | | | 19 | 0 | | | (four) hours as | | | | | | | needed for Wheezing | | | | | | | or Shortness of | | | | | | | Breath. | | | | | + + + +---------+ + + | calcium carbonate | Take 1 tablet by | | 0 | 08/28/19 | | | (TUMS) 500 mg | mouth daily. | | | 19 | 0 | | chewable tablet | | | | | | + + + +---------+ + + | furosemide (LASIX) | Take 1 tablet by | | 0 | 08/28/19 | | | 20 mg tablet | mouth every other | | | 19 | 0 | | | day as needed | | | | | | | (Bilateral lower | | | | | | | extremity edema). | | | | | + + + +---------+ + + | levETIRAcetam | Take 1 tablet by | | 0 | 08/28/19 | | | (KEPPRA) 750 MG | mouth 2 (two) times | | | 19 | 0 | | tablet | daily. | | | | | + + + +---------+ + + | metoprolol | Take 0.5 tablets by | 60 | 0 | 05/22/19 | | | tartrate (LOPRESSOR) | mouth 2 times daily. | tablet | | 19 | 0 | | 25 mg tablet | | | | | | + + + +---------+ + + | senna (SENNA) 8.6 | Take 1 tablet by | | 0 | 08/28/19 | | | mg tablet | mouth daily as | | | 19 | 0 | | | needed for | | | | | | | Constipation. | | | | | + + + +---------+ + + documented as of this encounter Progress Notes Conversion Transaction, Provider Unknown - 08/27/2018 2:59 PM PDTFormatting of this note m ight be different from the original. Nurse Progress Note by Lisa Lorenzana RN at 08/27/181458 Author: Lisa Lorenzana RN Service: (none) Author Type: Registered Nurse Filed: 08/27/182022 Date of Service: 08/27/181458 Status: Signed Publishing Agent: Lisa Lorenzana RN (Registered Nurse) No significant changes from shift assessment. No falls or new signs of skin breakdown. No c omplaints of pain, nausea or SOB. VSS for remainder of shift. WCM End of shift chart check done. Report called to Munira GARDUNO at [facility]. IV removed. Transportation arrived. on[facility] Transaction, Provider Unknown - 08/27/2018 2:59 PM PDT Case Management by Maria Del Rosario Dorado RN at 08/27/181458 Author: Maria Del Rosario Dorado RN Service: (none) Author Type: Registered Nurse Filed: 08/27/18 1539 Date of Service: 08/27/181458 Status: Signed Publishing Agent: Maria Del Rosario Dorado RN (Registered Nurse) Disposition: [facility] Transportation: [place] All orders, signed AVS, and prescriptions have been faxed: faxed to Ester @ [facility] DC paperwork completed Patient and family in agreement with discharge plan Medicare important message (Given or N/A): given Liz Dorado RN,BSN,CM [facility] Transaction, Provider Unknown - 08/27/2018 10:21 AM PDT Therapy Progress Note by Lalo Epstein PTA at 08/27/18 1021 Author: Lalo Epstein PTA Service: (none) Author Type: Income Tax Advisor Filed: 08/27/18 7794 Date of Service: 08/27/18 1021 Status: Signed Publishing Agent: Lalo Epstein PTA (Income Tax Advisor) PHYSICAL THERAPY TREATMENT NOTE PT Received On: 08/27/18 Reason for Treatment: Other (comment) (Fall) Requires PT Follow Up: Yes Recommendations: Other (comment), AF (memory care facility) Plan Treatment/Interventions: Continue per Primary PT POC Progress: Progressing toward goals Summary Comments: Pt in room with nursing when CUSTOMER MARKETING INTERN arrives, agreeable to therapy. Therapy focused o n increasing activity tolerance, balance activities, and LE strengthening. When pt had 4WW p laced in front of her, she placed her leg up on the seated and tried to climb on the walker when asked to walk. CUSTOMER MARKETING INTERN attempted to have the pt ambulate with 4WW again and determined that it was safer to attempted to ambulate without an AD. Pt demonstrated good stability while a mbulating with RECRUITING AND SELECTION CONSULTANT. While performing balance activities pt required frequent reminders of wh at she was doing as her confusion increased with activity. Pt was able to perform seated exe rcises with no increase in pain. Pt would benefit from continued therapy focusing on increas ing activity tolerance, balance activities and LE strengthening. Pt finished therapy in [facility] with all needs met. Precautions Other Precautions: Fall precautions, cognition Cognition Overall Cognitive Status: Impaired Orientation Level: Oriented, Disoriented FUNCTIONAL MOBILITY Transfers Sit to/from Stand: Standby assist Ambulation Weight Bearing Status: WBAT RLE, WBAT LLE Maximal Ambulation Distance (feet): 150+150 Total Ambulation Distance (feet): 300 Ambulation Assistance: Standby assist Distance limited by?: Therapist/staff discretion Pattern: Alternating, Decreased rosie Assistive Device: Other (Comment) (RECRUITING AND SELECTION CONSULTANT) BALANCE High Level Balance Side Stepping: Right, Left (hand rail) Backwards Walking: Hand hold assist Eyes Closed: No increase in sway Eyes Closed Time: 0030 THERAPEUTIC EXERCISE Seated-Exercise Type: Ankle pumps, Seated marching, Long arc quads, Ball squeeze Activity Tolerance: Patient tolerated treatment without report of fatigue Nurse Made Aware: yes Safety Devices in Place: (call light, chair alarm) The patient demonstrated no indication of pain during therapy session. Education Completed: Education Topics: [x] Rationale for PT [x] PT POC [x] DC planning [] Precautions [x] Exercises [] Bed mobility [] Transfer training with hand placement [x] Gait training [] Stair training [] Use of gait belt [] Other Completed with: [x] Patient [] Spouse [] Significant other [] Family [] C aregiver [] Other Completed by: [x] Verbal education [] Demonstration [] Handout [] Other: Response to Education: [x] Stated Understanding [x] Reinforcement necessary [] Returned demonstration [] Demonstrated understanding [] No evidence of learning [] Refused PT Goals Pt Will Go Supine To Sit: With standby assistance Pt Will Go Sit To Supine: With standby assistance Pt Will Transfer Sit to Stand: With standby assist Pt Will Transfer Bed/Chair: With standby assist Pt Will Ambulate: greater than 200 feet Ambulate Level Assist: With standby assist Ambulate with Assistive Device: Least restricitve device Reflects last filed data of patient's status; may be from multiple contributors onver gris Transaction, Provider Unknown - 08/26/2018 6:16 PM PDT Nurse Progress Note by Camila Anglin RN at 08/26/181815 Author: Camila Anglin RN Service: (none) Author Type: Registered Nurse Filed: 08/26/181815 Date of Service: 08/26/181815 Status: Signed Publishing Agent: Camila Anglin RN (Registered Nurse) Chart audit complete. onver gris Transaction, Provider Unknown - 08/26/2018 4:15 PM PDT Case Management by Maria Del Rosario Dorado RN at 08/26/18 1615 Author: Maria Del Rosario Dorado RN Service: (none) Author Type: Registered Nurse Filed: 08/26/18 1616 Date of Service: 08/26/18 161 Status: Signed Publishing Agent: Maria Del Rosario Dorado RN (Registered Nurse) TIM informed Ester @ [facility] that pt is NMR for discharge today. CM to f/u tomorro w. onver gris Transaction, Provider Unknown - 08/26/2018 11:43 AM PDT Nurse Progress Note by Bear Russell RN at 08/26/18 1143 Author: Bear Russell RN Service: (none) Author Type: Registered Nurse Filed: 08/26/18 1144 Date of Service: 08/26/18 1143 Status: Signed Publishing Agent: Bear Russell RN (Registered Nurse) Report given to SHAAN Jensen who will assume care of this patient. onver gris Transaction, Provider Unknown - 08/26/2018 11:30 AM PDT Pharmacy Note by Jen Vargas RPH at 08/26/18 1130 Author: Jen Vargas RPH Service: Pharmacy Author Type: Pharmacist Filed: 08/26/18 1132 Date of Service: 08/26/18 1130 Status: Signed Publishing Agent: Jen Vargas RPH (Pharmacist) Antimicrobial Stewardship Team Note Duration of Therapy Recommendation Patient: Germaine Blankenship Attending: Noe Bolton MD Admission Date: [id number] Current Antimicrobial Medications: Anti-infectives Start Dose/Rate Route Frequency Ordered Stop 08/21/18 0730 cefTRIAXone (ROCEPHIN) IVPB 1 g Ordering Provider: Raphael Durán MD 1 g 100 mL/hr over 30 Minutes Intravenous Every 24 Hours 08/21/18 0631 Current Labs: Lab Results Component Value Date/Time WBC 5.90 08/26/2018 06:30 AM WBC 5.78 08/22/2018 06:34 AM WBC 9.41 08/21/2018 06:33 AM Current Indication/Therapy: Treatment Indication: Urinary Tract Infection Anti-Infective: ceftriaxone Assessment/Recommendation: Stewardship Recommendation Type: Optimize duration of therapy Recommended Duration of Therapy: 5 days Recommendation Comment: Patient is currently on day #6 of ceftriaxone therapy which was sta rted at [facility] for UTI. Unsure if cultures from other facility have finalized at this time and if there was any growth. Infection markers remain normal. Recommend stopping antibi otic therapy as current duration is sufficient for coverage of an uncomplicated UTI. (Stewardship Recommendation Review Status: Pending MD Evaluation) Submitted by: Jen Vargas, Aiden Disclaimer: The recommendations from the Antibiotic Stewardship Program are derived from a review of the medical records and not a history and/or physical. The recommendations are n ot a substitute for either clinical judgement or an infectious disease consultation and are not binding. Noe Browning MD - 08/26/2018 8:12 AM PDT Progress Notes by Noe Bolton MD at 08/26/18811 Author: Noe Bolton MD Service: Hospitalist Author Type: Physician Filed: 08/26/182124 Date of Service: 08/26/18811 Status: Addendum Publishing Agent: Noe Bolton MD (Physician) Related Notes: Original Note by Noe Bolton MD (Physician) filed at 08/26/182124 [facility] Service: Hospitalist Progress Note Pt: Germaine Arteaga Blankenship AGE/SEX: 72 y.o. female : 1945 ROOM: [address] [place] [address] " Patient Summary: 72-year-old female with history of hypertension, hyperlipidemia, coronar y artery disease a status post CABG x4, history of alcohol abuse, history of drug use, histo ry of nephrolithiasis, history of recent stroke 6 months ago who was transferred from [facility] because of new onset seizures. She had one episode at home described to be generalized tonic-clonic lasting for 5 minutes with postictal state. In the emergency ro om, she had another witnessed 5-minute tonic-clonic movement. She was loaded with Keppra IV and was given Ativan prior to transfer to [facility]. She is here for further neurologic evalu ate. Of note, the patient was also diagnosed to have UTI and was started on ceftriaxone damian or to transfer to [facility]. According to the daughter, patient has not been seen by her regular primary care phys marshaan for the past 1 and half years. Reportedly, she had a stroke 6 months ago and since, h as been having progressive functional decline. She was supposed to go to a long-term care [facility] but patient eventually declined this. Events Overnight: Seen and examined patient. Patient is interactive and pleasant. Had a good breakfast. Al so had a good BM today. Confused at baseline. Denies any complaints. She had another seiz ure like activity yesterday PM controlled with ativan PRN. "......... per progress note by Jesus Diop MD on 08/24/2018. TODAY'S DATE: 08/26/2018 Hospital Day: LOS: 5 days SUBJECTIVE: 08/25/18: Patient pleasant but confused. Appreciate cardiology input and recommendations. No further episodes of seizures identified. Patient continued on increased dose of Keppra of 750 mg p.o. twice daily. 08/26/18: Patient present but oriented only to self. No further seizures reported on increa sed doses of Keppra. Patient completed 5 days of IV ceftriaxone and it was discontinued. Case management consulted for discharge planning. Review of Systems: Review of Systems Unable to perform ROS: Dementia Constitutional: Positive for chills. Negative for fever. Respiratory: Negative for shortness of breath. Cardiovascular: Negative for chest pain. Psychiatric/Behavioral: Positive for memory loss. Substance abuse: Scheduled Medications cefTRIAXone 1 g Intravenous Q24H clopidogrel 75 mg Oral Daily enoxaparin 40 mg Subcutaneous Q24H levETIRAcetam 750 mg Oral BID lisinopril 40 mg Oral Daily metoprolol 25 mg Oral Daily miconazole Topical BID pantoprazole 40 mg Oral QAM AC Continuous Infusions PRN Medications acetaminophen OR acetaminophen, albuterol, LORazepam, ondansetron OR ondansetron, p otassium chloride OR potassium chloride OR potassium chloride Allergy: Allergies Allergen Reactions Codeine Other (See Comments) Unknown OBJECTIVE Vitals: Patient Vitals for the past 24 hrs: BP Temp Temp src Pulse Resp SpO2 Weight 08/26/18 0809 146/75 98 F (36.7 C) Oral 60 16 98 % - 08/26/18 0325 135/65 97.5 F (36.4 C) Oral 58 15 98 % 73.3 kg (161 lb 11.2 oz) 08/25/18 2244 175/77 97.7 F (36.5 C) Oral 56 18 95 % - 08/25/18 1900 169/70 97.7 F (36.5 C) Oral 65 16 96 % - 08/25/18 1630 153/70 98.1 F (36.7 C) Oral 53 18 98 % - 08/25/18 1130 131/90 98.3 F (36.8 C) Oral 61 18 98 % - 08/25/18 0915 151/78 - - 58 - - - I&O Detailed Table: Intake/Output Summary (Last 24 hours) at 08/26/18 0812 Last data filed at 08/25/18 1700 Gross per 24 hour Intake 124 ml Output 0 ml Net 124 ml Patient Vitals for the past 96 hrs: Weight 08/26/18 0325 73.3 kg (161 lb 11.2 oz) 08/25/18 0314 73 kg (160 lb 14.4 oz) 08/24/18 0402 75.1 kg (165 lb 8 oz) 08/23/18 0526 71.4 kg (157 lb 6.4 oz) Hemodynamics Last 24hrs: Examination: Physical Exam Constitutional: She appears well-developed. HENT: Head: Normocephalic. Mouth/Throat: No oropharyngeal exudate. Eyes: Pupils are equal, round, and reactive to light. Neck: Neck supple. No JVD present. Cardiovascular: Normal rate. Pulmonary/Chest: Effort normal and breath sounds normal. She has no rales. Abdomina/Gl: Soft. She exhibits no distension. There is no tenderness. Musculoskeletal: She exhibits no edema. Neurological: She is alert. Oriented to self but not place or time. Skin: Skin is warm and dry. Capillary refill takes less than 2 seconds. She is not diaphore tic. Psychiatric: Her behavior is normal. LABS: Recent Labs Lab 08/26/1862908/22/1863308/21/1833 WBC 5.90 5.78 9.41 HGB 11.1* 11.0* 12.4 HCT 32.8* 32.5* 37.2 PLT 195 198 157 NEUTOPHILPCT -- 54.33 77.05 MONOPCT -- 6.07 5.56 Recent Labs Lab 08/26/1862908/23/1836 08/22/18195708/22/1863308/21/18632 NA 147* 145 -- 148* -- 148* K 3.7 4.0 3.7 3.2* < > 3.2* CL 113* 110* -- 111* -- 112* CO2 31 29 -- 31 -- 30 BUN 9 7* -- 6* -- 8 CREATININE 0.73 0.7 -- 0.59 -- 0.57 PROT 5.0* -- -- -- -- 5.3* BILITOT 0.2 -- -- -- -- 0.4 ALT 8* -- -- -- -- 15 AST 15 -- -- -- -- 29 < > = values in this interval not displayed. Phosphorus: Recent Labs Lab 08/26/18629 PHOS 3.7 Recent Labs Lab 08/26/1862908/22/1834 MG 1.8 1.6* Diagnostic: X-ray Ribs Right W/pa Chest Result Date: 08/21/2018 RIGHT RIBS AND PA CHEST CLINICAL INFORMATION: Right rib pain COMPARISON: XR RIBS BILATERAL W PA CHEST (08/17/2018); FINDINGS: Postoperative changes of prior sternotomy and CABG. Mild cardiomegaly. Mild pulmonary vascular prominence but no overt failure or interstitial edema . The lungs are expanded free of infiltrate, effusion, pneumothorax. No obvious hilar or m ediastinal adenopathy. No displaced right rib fractures. No evidence of displaced right rib fracture Cardiomegaly and evidence of prior CABG but no overt failure No acute infiltrate Signed by: Chey Cruz Dwane Sign Date/Time: 10:28 PM X-ray Ribs Bilateral W/ Pa Chest Result Date: 08/21/2018 This is a non-reportable procedure without a radiologist report and is used for image stora ge only X-ray Hip 2 View Right Result Date: 08/21/2018 RIGHT HIP TWO OR THREE VIEWS CLINICAL INFORMATION: Right Thigh/Hip pain after injury LORI RISON: None FINDINGS: No fracture or dislocation. No significant arthropathy or soft tissue abnormalities. Normal bone mineralization. Negative hip. Signed by: Chey Cruz Dwane Sign Date/Time: 08/21/2018 10:[address] Head Without Contrast Result Date: 08/21/2018 This is a non-reportable procedure without a radiologist report and is used for image stora ge only X-ray Chest 1 View Result Date: 08/21/2018 This is a non-reportable procedure without a radiologist report and is used for image stora ge only Echo Cardiac Adult Complete Result Date: 08/22/2018 Patient Name: GERMAINE BARBOUR Date of : 1945 [facility] Physician: Miky Alamo ____ INDICATIONS Abnormal EKG CONCLUSIONS 1. The left ventricle is n ormal in size, mild concentric hypertrophy and normal systolic function EF 55-60%. 2. The ri ght ventricle is normal in size and function. 3. Mild tricuspid regurgitation and no pulmona ry hypertension. 4. There is no pericardial effusion. FINDINGS -------- ECG rhythm: Sinus rh ythm. ECG rhythm: Resting bradycardia (HR<60bpm). Study: A 2-dimensional transthoracic echoc ardiogram with m-mode, spectral and color flow Doppler was perfomed. Study: This was a techn ically adequate study. Left Ventricle: Overall left ventricular systolic function is normal with, an EF between 55 - 60 %. Left Ventricle: The left ventricle cavity size is normal. Lef t Ventricle: There is mild concentric left ventricular hypertrophy. Left Ventricle: No regio nal wall motion abnormalities. Left Ventricle: Pseudonormal LV diastolic filling pattern, co nsistent with elevated LA pressure and moderate dysfunction (Grade II). Right Ventricle: The right ventricle is normal in size and function. Left Atrium: The left atrium is markedly di lated. Right Atrium: The right atrium is moderately enlarged. Aortic Valve: The aortic valve is mildly calcified. Aortic Valve: There is no evidence of aortic regurgitation. Aortic Leandra ve: There is no evidence of aortic stenosis. Mitral Valve: Mild mitral regurgitation is pres ent. Mitral Valve: Mild mitral annular calcification present. Tricuspid Valve: The tricuspid valve appears structurally normal. Tricuspid Valve: Mild tricuspid regurgitation present. T ricuspid Valve: There is no evidence of pulmonary hypertension. Tricuspid Valve: The right v entricular systolic pressure (pulmonary artery systolic pressure), as measured by Doppler, i s 30.27mmHg. Pericardium: There is no pericardial effusion. Pericardium: No pleural effusion seen. MEASUREMENTS RA Area: 18.95 cm2 Ao asc: 4.39 cm Ao sinus: 3.04 cm LA Diam: 4.77 cm EDV(Teich): 102.98 ml IVSd: 1.19 cm LVIDd: 4.71 cm LVPWd: 1.22 c m LVOT Diam: 1.96 cm %FS: 35.54 % EF(Teich): 64.97 % ESV(Teich): 36.06 ml IVSs: 1. 52 cm LVIDs: 3.03 cm LVPWs: 1.82 cm SV(Teich): 66.91 ml RVIDd: 3.45 cm LAESV(A-L): 117.11 ml LAESV Index (A-L): 66.54 ml/m2 LAAs A2C: 29.59 cm2 LAESV A-L A2C: 105.11 ml LALs A2C: 7.07 cm LAAs A4C: 32.97 cm2 LAESV A-L A4C: 119.49 ml LALs A4C: 7.72 cm TA PSE: 1.59 cm HR: 48.54 BPM AV maxP.21 mmHg AV meanP.37 mmHg AV Vmax: 1.24 m/s AV Vmean: 0.86 m/s AV VTI: 33.73 cm ANATOLIY Vmax: 1.92 cm2 ANATOLIY (VTI): 1.95 cm2 AVAI Vmax: 0.00 cm2/m2 AVAI (VTI): 0.00 cm2/m2 LVCI Dopp: 1.81 l/minm2 LVCO Dopp: 3.19 l/ min HR: 48.32 BPM LVOT maxP.48 mmHg LVOT meanP.58 mmHg LVSI Dopp: 37.56 ml/m 2 LVSV Dopp: 66.11 ml LVOT Vmax: 0.78 m/s LVOT Vmean: 0.60 m/s LVOT VTI: 21.71 cm MV A Stewart: 0.34 m/s MV DecT: 569.43 ms MV E Stewart: 0.66 m/s MV E/A Ratio: 1.95 MV A Dur: 88.48 ms MV DecT: 581.48 ms Septal e': 0.04 m/s Septal E/e': 14.72 Lateral e': 0.0 5 m/s Lateral E/e': 13.17 HR: 47.99 BPM PV maxP.71 mmHg PV meanP.05 mmHg PV Vmax: 0.65 m/s PV Vmean: 0.48 m/s PV VTI: 17.71 cm PV maxP.70 mmHg PV Vmax: 0. 96 m/s RAP: 8 mmHg RV S': 0.07 m/s RVSP: 30.27 mmHg TR maxP.27 mmHg TR Vmax: 2.35 m/s Club Attendant: Authenticated by: Miky Alamo Report Date/Time: 08-22-2018 14:3 8:8 1. The left ventricle is normal in size, mild concentric hypertrophy and normal systolic fu nction EF 55-60%. 2. The right ventricle is normal in size and function. 3. Mild tricuspid r egurgitation and no pulmonary hypertension. 4. There is no pericardial effusion. Ct Head Cervical Spine Without Contrast Result Date: 08/21/2018 CT HEAD WITHOUT CONTRAST; CT CERVICAL SPINE WITHOUT CONTRAST CLINICAL INFORMATION: Head [place] n after fall. Patient found down next to her bed. COMPARISON: CT HEAD WO CONTRAST (08/21/19 19); PROCEDURE: CT Head: Axial non-contrast images were obtained through the head. CT Cervic al Spine: Thin section noncontrast axial images were obtained through the cervical spine. Mu ltiplanar reformations were obtained from the acquisition data. At least one of the followin g CT dose optimization techniques were used: Automated exposure control; Adjustment of mA an d/or kV according to patient size; Use of iterative reconstruction technique. FINDINGS: Ther e degrading of the images due to excessive motion. CT Head: Brain: No intracranial hemorrhag e, midline shift or pathologic mass effect. No cerebral edema, mass lesion, or evidence of i nfarct. There is chronic lacunar infarct of the left basal ganglia and internal capsule. The re is scattered hypoattenuation the cerebral white matter consistent with chronic small vess el ischemic changes. Ventricles and extra-axial fluid spaces: Normal. Paranasal sinuses and mastoid air cells: Normal. Calvarium and extracranial soft tissue: Normal. Orbits: Imaged po rtions of the orbits are normal. CT Cervical Spine: Alignment: Normal. Vertebrae: There is a chronic ununited type 2 odontoid fracture. The odontoid appears partially fused with the a nterior arch of C1. This is unchanged in appearance since previous studies. There is no vazquez dence of an acute fracture. Cervical disc levels: C3-4 there is mild posterior osteophytic s purring and hypertrophic uncovertebral degenerative changes. There mild hypertrophic facet osteoarthrosis. C5-6 there moderate to severe disc space narrowing. There posterior disc os teophyte complex. There bilateral hypertrophic uncovertebral degenerative changes. There i s no significant neural foraminal stenosis. C6-7 disc space is mildly narrowed. The spinal c anal is patent. Facets and posterior spinal elements: There is mild multilevel hypertrophic facet osteoarthrosis. There no evidence of fracture or subluxation. Paraspinal soft tissues : No evidence of acute paraspinal soft tissue abnormality. The thyroid gland demonstrates en largement of the right lobe with multiple nodules which does not appear substantially change d since the previous study. 1. Degrading of the images due to excessive motion. 2. No evidence of acute intracranial in jury. 3. Chronic lacunar infarct of the left basal ganglia and internal capsule. 4. No evide nce of cervical spine fracture. 5. Chronic ununited type 2 odontoid fracture. Dens appears partially fused to the anterior arch C1. 6. Discogenic spondylosis, most advanced at C5-6. S igned by: Chey Dorantes, Colton Sign Date/Time: 08/21/2018 5:52 PM Past Medical History Diagnosis Date Abnormal EKG Alcohol abuse, in remission sober since 1989 CAD (coronary artery disease) CAD (coronary artery disease) of bypass graft occluded SVG > RCA COPD (chronic obstructive pulmonary disease) ([facility]) Hydronephrosis of right kidney Hyperlipidemia Hypertension many years Kidney disease CT (myocardial infarction) ([facility]) 09/05/2012 NSTEMI Morbid obesity ([facility]) weighed over 500 lbs prior to bariatric surgery, lost > 300 lbs Recurrent nephrolithiasis S/P CABG x 4 1998 occluded SVG>RCA; patent CASAS>LAD, patent "Y" seq SVG>D1>OM2 (cath 09/10) S/P PTCA (percutaneous transluminal coronary angioplasty) 3.5x16, 2.75x32 Taxus TRAVIS mid-distal LCx (07/16/03) // 2.5x12 Promus Element TRAVIS R PDA, 3.5 x15 Promus Element TRAVIS distal RCA (09/05/12) Stroke ([facility]) 2013 Right-sided, left facial droop - resolved; mild residual memory deficit Type II diabetes mellitus ([facility]) resolved with weight loss following bariatric surgery Past Surgical History Procedure Laterality Date APPENDECTOMY BARIATRIC SURGERY 2005 CARDIAC CATHETERIZATION CHOLECYSTECTOMY CORONARY ANGIOPLASTY WITH STENT PLACEMENT 3.5x16, 2.75x32 Taxus TRAVIS mid-distal LCx (07/16/03) // 2.5x12 Promus Element TRAVIS R PDA, 3.5 x15 Promus Element TRAVIS distal RCA (09/05/12) CORONARY ARTERY BYPASS GRAFT 1998 CASAS>LAD; "Y" sequential SVG>D1>OM2; occluded SVG>RCA heart stent ORIF SHOULDER DISLOCATION W/ HUMERAL FRACTURE Left 2000 fx, fell on ice TONSILLECTOMY PROBLEM LIST Principal Problem: New onset seizure ([facility]) Active Problems: HTN (hypertension) CAD (coronary artery disease) S/P CABG x 4 Hyperlipidemia ASSESSMENT & PLAN 72-year-old female with the followin. New onset seizures. Recurrent episodes of seizure after admission. No further seizure s reported after Keppra has been increased to 750 mg p.o. twice daily as recommended by neur ology sql consultant. -Continue seizure precautions. Follow-up with neurology on the outpatient basis. 2. Unwitnessed fall on 08/21/2018. -CT scan of the neck showed chronic odontoid fracture; -Previously described as chronic. Continue fall precautions. -Currently odontoid fracture appears to be asymptomatic/likely acquired sometime in the pas t. 3. Hypertension. Continue beta-luís therapy. Continue increased dose of lisinopril. 4. History of stroke. Continue Plavix for prophylaxis. 5. History of coronary artery disease with prior history of CABG x4. Continue Plavix, lis inopril and metoprolol. Currently denies any chest pains. 6. History of UTI. Patient concluded 5 days of IV ceftriaxone. 7. Hypokalemia resolved. 8. Hypernatremia. Encourage intake of free water. Recheck labs in the morning. 9. Atrial fibrillation with RVR. Rate better controlled on the current dose of metoprolol . Appreciate cardiology's input and recommendations. Long-term anticoagulation currently c ontraindicated due to risk of bleeding/injury. 10. Deconditioning. Continue PT/OT. Will likely need SNF placement. Case management con sulted for that purpose. Neo Bolton MD 08/26/2018 8:12 AM onversion Transac tion, Provider Unknown - 08/26/2018 6:04 AM PDTFormatting of this note might be different f rom the original. Nurse Progress Note by Brennan Rosa RN at 08/26/18 06 Author: Brennan Rosa RN Service: (none) Author Type: Registered Nurse Filed: 08/26/18 0605 Date of Service: 08/26/18603 Status: Signed Publishing Agent: Brennan Rosa RN (Registered Nurse) Pt remains impulsive and confused, but pleasant. Bed alarm in place at all times and pt up with assist. 24 hour chart review complete. onver gris Transaction, Provider Unknown - 08/25/2018 6:11 PM PDT Nurse Progress Note by Bear Russell RN at 08/25/181810 Author: Bear Russell RN Service: (none) Author Type: Registered Nurse Filed: 08/25/181813 Date of Service: 08/25/181810 Status: Signed Publishing Agent: Bear Russell RN (Registered Nurse) Pt continues to be pleasantly confused. Bed alarm and tab alarm in use, fall mats in place, staff positioned near pt room and diversionary activities in place. Pt does ambulate well b ut is impulsive at time and does not use call light to express needs (frequent reminders). W ill continue to monitor. Chart check complete. Bear Russell RN onver gris Transaction, Provider Unknown - 08/25/2018 3:56 PM PDT Therapy Progress Note by Neo Guerrero PT at 08/25/18 7594 Author: Neo Guerrero PT Service: (none) Author Type: Physical Therapist Filed: 08/25/18 5825 Date of Service: 08/25/18 9070 Status: Signed Publishing Agent: Neo Guerrero PT (Physical Therapist) PHYSICAL THERAPY TREATMENT NOTE PT Received On: 08/25/18 Reason for Treatment: Other (comment) (fall) Requires PT Follow Up: Yes Recommendations: Other (comment), AF (memory care facility) Plan Treatment/Interventions: Continue per Primary PT POC Progress: Progressing toward goals Summary Comments: pt. sitting in recliner and agreeable to therapy. pt. is very disoriented but fo llowing directions. pt. SBA for all transfers and mobility, safety concerns due to pt. david ng impuslive. pt. sitting in recliner with call light in reach. Precautions Other Precautions: fall precautions, Cog Cognition Overall Cognitive Status: Impaired FUNCTIONAL MOBILITY Ambulation Maximal Ambulation Distance (feet): 375 Total Ambulation Distance (feet): 375 Ambulation Assistance: Standby assist Distance limited by?: Therapist/staff discretion Pattern: Alternating, Decreased rosie Assistive Device: Walker 4 wheeled Activity Tolerance: Patient tolerated treatment without report of fatigue Nurse Made Aware: yes The patient demonstrated no indication of pain during therapy session. Education Completed: Education Topics: [] Rationale for PT [] PT POC [] DC planning [] Precautions [] Exercises [] Bed mobility [x] Transfer training with hand placement [x] Gait training [] Stair training [x] Use of gait belt [] Other Completed with: [x] Patient [] Spouse [] Significant other [] Family [] C aregiver [] Other Completed by: [x] Verbal education [] Demonstration [] Handout [] Other: Response to Education: [] Stated Understanding [] Reinforcement necessary [] Returned demonstration [] Demonstrated understanding [] No evidence of learning [] Refused PT Goals Pt Will Go Supine To Sit: With standby assistance Pt Will Go Sit To Supine: With standby assistance Pt Will Transfer Sit to Stand: With standby assist Pt Will Transfer Bed/Chair: With standby assist Pt Will Ambulate: greater than 200 feet Ambulate Level Assist: With standby assist Ambulate with Assistive Device: Least restricitve device Reflects last filed data of patient's status; may be from multiple contributors onver gris Transaction, Provider Unknown - 08/25/2018 12:04 PM PDT Case Management by Lakshmi Bradshaw RN at 08/25/18 1204 Author: Lakshmi Bradshaw RN Service: (none) Author Type: Registered Nurse Filed: 08/25/18 1221 Date of Service: 08/25/18 1204 Status: Signed Publishing Agent: Lakshmi Bradshaw RN (Registered Nurse) Spoke with patient, daughter, and son-in-law who state pt will need to discharge to [facility] in [place], referral sent. Requested a [facility] [place] for baseline, suggested if pt's husba nd no longer wants to be involved in her care that a POA for HC and Finances be established and documented through a public health social worker. currently has pt's Medicaid card, daughter will get it from him. Significant concern noted that pt and her have been living in an old 20' camping trailer without running water or toilet services and they have been keny ng only on pt's social security income. Pt is currently oriented to herself and her family but unable to verbalize what town she is in, what date it is, current social events, or why she is hospitalized. Miky Kwan ra, MD - 08/25/2018 9:03 AM PDT Progress Notes by Miky Alamo MD at 08/25/18902 Author: Miky Alamo MD Service: Cardiology Author Type: Physician Filed: 08/25/18 1015 Date of Service: 08/25/18902 Status: Signed Publishing Agent: Miky Alamo MD (Physician) [facility] Service: Cardiology Progress Note Name of Preschool Substitute Teacher: Miky Alamo MD I have seen the patient on 08/25/2018 up to chair no new complains or events. paroxysmal atr ial fibrillation. SUBJECTIVE Denies any complains. Current Facility-Administered Medications: acetaminophen (TYLENOL) tablet 650 mg, 650 mg, Oral, Q6H PRN, 650 mg at 08/24/182009 OR acetaminophen (TYLENOL) suppository 650 mg, 650 mg, Rectal, Q6H PRN, Raphael Durán MD albuterol (PROVENTIL HFA;VENTOLIN HFA) inhaler, 2 puff, Inhalation, Q4H PRN, Raphael oreilly MD cefTRIAXone (ROCEPHIN) IVPB 1 g, 1 g, Intravenous, Q24H, Raphael Durán MD, 1 g at 0 08/24/18 0551 clopidogrel (PLAVIX) tablet 75 mg, 75 mg, Oral, Daily, Raphael Durán MD, 75 mg at 0 08/24/18 1045 enoxaparin (LOVENOX) injection 40 mg, 40 mg, Subcutaneous, Q24H, Raphael Durán MD, 40 mg at 08/24/18 104 levETIRAcetam (KEPPRA) tablet 750 mg, 750 mg, Oral, BID, Jeremías Diop MD, 750 mg at 08/24/182009 lisinopril (ZESTRIL) tablet 40 mg, 40 mg, Oral, Daily, Jeremías Diop MD, 40 mg at 104 LORazepam (ATIVAN) injection 1 mg, 1 mg, Intravenous, Q4H PRN, Raphael Durán MD, 1 mg at 08/23/18 1833 metoprolol (TOPROL-XL) 24 hr tablet 25 mg, 25 mg, Oral, Daily, Jeremías Diop MD, 25 m g at 08/24/18 1048 miconazole (MITRAZOL) 2 % powder, , Topical, BID, Jeremías Diop MD ondansetron (ZOFRAN-ODT) disintegrating tablet 4 mg, 4 mg, Oral, Q8H PRN OR ondans etron (ZOFRAN) injection 4 mg, 4 mg, Intravenous, Q8H PRN, Raphael Durán MD pantoprazole (PROTONIX) EC tablet 40 mg, 40 mg, Oral, QAM AC, Raphael Durán MD, 40 mg at 08/25/18 0636 potassium chloride 20 mEq in 250 mL IVPB, 20 mEq, Intravenous, PRN OR potassium ch loride 40 mEq in 520 mL IVPB, 40 mEq, Intravenous, PRN, 40 mEq at 08/22/18 1043 OR potas sium chloride 60 mEq in 530 mL IVPB, 60 mEq, Intravenous, PRN, Jeremías Diop MD OBJECTIVE Vital Signs: BP 136/72 (BP Location: Right forearm) | Pulse 62 | Temp 96.9 F (36.1 C) (Axillary) | Resp 20 | Ht 1.626 m (5' 4") | Wt 73 kg (160 lb 14.4 oz) | SpO2 97% | ? N o | BMI 27.62 kg/m Intake/Output Summary (Last 24 hours) at 08/25/18 0903 Last data filed at 08/25/18 0643 Gross per 24 hour Intake 365 ml Output 450 ml Net -85 ml Cardiovascular: Regular rhythm, S1 normal and S2 normal. Systolic murmur in the left sternal border. Pulses: Radial pulses are 2+ on the right side, and 2+ on the left side. Pulmonary/Chest: Effort normal and breath sounds normal. No wheezes. No rales. Abdominal: Soft. No tenderness. Musculoskeletal: No edema. Neurological: Alert. No cranial nerve deficit. Severe dementia. Skin: Warm and dry. DATA Recent Labs Lab 08/23/18 0536 [id number] NA 145 -- 148* -- 148* K 4.0 3.7 3.2* < > 3.2* CO2 29 -- 31 -- 30 BUN 7* -- 6* -- 8 CREATININE 0.7 -- 0.59 -- 0.57 EGFR >60 -- >60 -- >60 MG -- -- 1.6* -- -- < > = values in this interval not displayed. Recent Labs Lab 08/[id number]/[id number]/[id number] WBC 5.78 9.41 HGB 11.0* 12.4 HCT 32.5* 37.2 MCV 87.7 88.3 PLT 198 157 No results for input(s): CKTOTAL, CKMB, CKMBINDEX, TROPONINI, TSH, INR in the last 168 hour s. Invalid input(s): BRAIN NATRIURETIC PEPTIDE Lab Results Component Value Date CHOL 130 09/06/2012 TRIG 44 09/06/2012 LDL 77 09/06/2012 HDL 45 09/06/2012 GLUF 77 08/23/2018 TSH 0.75 09/06/2012 EK08/22/2018 Last Echo: Last stress test: Last cath: 2012 SVG to RCA occluded. Y shaped SVG to diag and second OM. CASAS to LAD patent. RCA 3.5 x 15 Promus TRAVIS. 2003 Mid LCX 3.5 x 16 and 2.75 x 32 Taxus. Mid to distal LCX Carotid US: AAA screening: Lower extremity US: OTHERS: 1998 CABG X 4 ASSESSMENT & PLAN Patient is 72 y.o. 1. Paroxysmal atrial fibrillation, CHADSVASc score of 4. Not a candidate for anticoagulatio n. 2. Hypertension. Controlled blood pressure. 3. Newly diagnosed seizure with abnormal EEG. 4. Coronary artery disease as mentioned above, previous CABG and PCI. 5. Advanced dementia. 6. Debility. 7. Dyslipidemia. 8. History of cerebrovascular accident in the past. 9. DNR/DNI Recommendations: Multiple comorbidities and complex presentation especially advanced dementia. Patient is a poor candidate for anticoagulation or any invasive evaluation. I have discussed the case with Dr. Diop who is aware not of patient dementia. Patient denies any symptoms. Is not oriented to place time or person. We will continue with current doses of metoprolol succinate 25 mg p.o. Daily. No change of any doses due to underlying bradycardia. We will continue on levetiracetam for seizure treatment. Clopidogrel secondary to previous cerebrovascular accident. Continue with lisinopril 20 mg p.o. daily for blood pressure control. We will continue to follow. Code Status: DNR/DNI Miky Alamo MD 08/25/2018 Noe Browning MD - 08/25/2018 8:31 AM PDT Progress Notes by Noe Bolton MD at 08/25/18830 Author: Noe Bolton MD Service: Hospitalist Author Type: Physician Filed: 08/25/182100 Date of Service: 08/25/18830 Status: Signed Publishing Agent: Noe Bolton MD (Physician) [facility] Service: Hospitalist Progress Note Pt: Germaine Blankenship AGE/SEX: 72 y.o. female : 1945 ROOM: [address] [place] [address] " Patient Summary: 72-year-old female with history of hypertension, hyperlipidemia, coronar y artery disease a status post CABG x4, history of alcohol abuse, history of drug use, histo ry of nephrolithiasis, history of recent stroke 6 months ago who was transferred from [facility] because of new onset seizures. She had one episode at home described to be generalized tonic-clonic lasting for 5 minutes with postictal state. In the emergency ro om, she had another witnessed 5-minute tonic-clonic movement. She was loaded with Keppra IV and was given Ativan prior to transfer to [facility]. She is here for further neurologic evalu ate. Of note, the patient was also diagnosed to have UTI and was started on ceftriaxone damian or to transfer to [facility]. According to the daughter, patient has not been seen by her regular primary care phys ician for the past 1 and half years. Reportedly, she had a stroke 6 months ago and since, h as been having progressive functional decline. She was supposed to go to a long-term care f acility but patient eventually declined this. Events Overnight: Seen and examined patient. Patient is interactive and pleasant. Had a good breakfast. Al so had a good BM today. Confused at baseline. Denies any complaints. She had another seiz ure like activity yesterday PM controlled with ativan PRN. "......... per progress note by Jesus Diop MD on 08/24/2018. TODAY'S DATE: 08/25/2018 Hospital Day: LOS: 4 days SUBJECTIVE: 08/25/2018: Patient pleasant but confused. Appreciate cardiology input and recommendation s. No further episodes of seizures identified. Patient continued on increased dose of Keppra of 750 mg p.o. twice daily. Review of Systems: Review of Systems Unable to perform ROS: Dementia Constitutional: Positive for chills. Negative for fever. Respiratory: Negative for shortness of breath. Cardiovascular: Negative for chest pain. Psychiatric/Behavioral: Positive for memory loss. Substance abuse: Scheduled Medications cefTRIAXone 1 g Intravenous Q24H clopidogrel 75 mg Oral Daily enoxaparin 40 mg Subcutaneous Q24H levETIRAcetam 750 mg Oral BID lisinopril 40 mg Oral Daily metoprolol 25 mg Oral Daily miconazole Topical BID pantoprazole 40 mg Oral QAM AC Continuous Infusions PRN Medications acetaminophen OR acetaminophen, albuterol, LORazepam, ondansetron OR ondansetron, p otassium chloride OR potassium chloride OR potassium chloride Allergy: Allergies Allergen Reactions Codeine Other (See Comments) Unknown OBJECTIVE Vitals: Patient Vitals for the past 24 hrs: BP Temp Temp src Pulse Resp SpO2 Weight 08/25/18 0803 136/72 96.9 F (36.1 C) Axillary 62 20 97 % - 08/25/18 0314 165/72 97.5 F (36.4 C) Oral 50 18 98 % 73 kg (160 lb 14.4 oz) 08/24/18 2320 163/72 97.6 F (36.4 C) Oral (!) 45 18 97 % - 08/24/18 1939 154/80 98.2 F (36.8 C) Oral 62 20 96 % - 08/24/18 1552 150/66 97.8 F (36.6 C) Oral 50 18 98 % - 08/24/18 1205 146/67 - - 71 18 94 % - 08/24/18 1048 - - - 55 - - - 08/24/18 1045 132/60 - - - - - - I&O Detailed Table: Intake/Output Summary (Last 24 hours) at 08/25/18 0831 Last data filed at 08/25/18 0643 Gross per 24 hour Intake 365 ml Output 450 ml Net -85 ml Patient Vitals for the past 96 hrs: Weight 08/25/18 0314 73 kg (160 lb 14.4 oz) 08/24/18 0402 75.1 kg (165 lb 8 oz) 08/23/18 0526 71.4 kg (157 lb 6.4 oz) 08/22/18 0409 71.3 kg (157 lb 3.2 oz) Hemodynamics Last 24hrs: Examination: Physical Exam Constitutional: She appears well-developed. HENT: Head: Normocephalic. Mouth/Throat: No oropharyngeal exudate. Eyes: Pupils are equal, round, and reactive to light. Neck: Neck supple. Cardiovascular: Normal rate. Pulmonary/Chest: Effort normal and breath sounds normal. Abdomina/Gl: Soft. She exhibits no distension. There is no tenderness. Neurological: She is alert. Oriented to self but not place or time. Skin: Skin is warm and dry. Capillary refill takes less than 2 seconds. She is not diaphore tic. Psychiatric: She has a normal mood and affect. LABS: Recent Labs Lab 08/22/18 0634 08/21/18 0633 WBC 5.78 9.41 HGB 11.0* 12.4 HCT 32.5* 37.2 PLT 198 157 NEUTOPHILPCT 54.33 77.05 MONOPCT 6.07 5.56 Recent Labs Lab 08/23/18 0536 08/22/18 1958 08/22/18 0634 08/21/18 0633 NA 145 -- 148* -- 148* K 4.0 3.7 3.2* < > 3.2* CL 110* -- 111* -- 112* CO2 29 -- 31 -- 30 BUN 7* -- 6* -- 8 CREATININE 0.7 -- 0.59 -- 0.57 PROT -- -- -- -- 5.3* BILITOT -- -- -- -- 0.4 ALT -- -- -- -- 15 AST -- -- -- -- 29 < > = values in this interval not displayed. Phosphorus: Recent Labs Lab 08/23/18 0536 PHOS 2.9 Recent Labs Lab 08/22/18 0634 MG 1.6* Diagnostic: X-ray Ribs Right W/pa Chest Result Date: 08/21/2018 RIGHT RIBS AND PA CHEST CLINICAL INFORMATION: Right rib pain COMPARISON: XR RIBS BILATERAL W PA CHEST (08/17/2018); FINDINGS: Postoperative changes of prior sternotomy and CABG. Mild cardiomegaly. Mild pulmonary vascular prominence but no overt failure or interstitial edema . The lungs are expanded free of infiltrate, effusion, pneumothorax. No obvious hilar or m ediastinal adenopathy. No displaced right rib fractures. No evidence of displaced right rib fracture Cardiomegaly and evidence of prior CABG but no overt failure No acute infiltrate Signed by: Chey Cruz Dwane Sign Date/Time: 10:28 PM X-ray Ribs Bilateral W/ Pa Chest Result Date: 08/21/2018 This is a non-reportable procedure without a radiologist report and is used for image stora ge only X-ray Hip 2 View Right Result Date: 08/21/2018 RIGHT HIP TWO OR THREE VIEWS CLINICAL INFORMATION: Right Thigh/Hip pain after injury LORI RISON: None FINDINGS: No fracture or dislocation. No significant arthropathy or soft tissue abnormalities. Normal bone mineralization. Negative hip. Signed by: Chey Cruz Dwane Sign Date/Time: 08/21/2018 10:[address] Head Without Contrast Result Date: 08/21/2018 This is a non-reportable procedure without a radiologist report and is used for image stora ge only X-ray Chest 1 View Result Date: 08/21/2018 This is a non-reportable procedure without a radiologist report and is used for image stora ge only Echo Cardiac Adult Complete Result Date: 08/22/2018 Patient Name: GERMAINE BARBOUR Date of : 1945 Perform ng Physician: Miky Alamo ____ INDICATIONS Abnormal EKG CONCLUSIONS 1. The left ventricle is n ormal in size, mild concentric hypertrophy and normal systolic function EF 55-60%. 2. The ri ght ventricle is normal in size and function. 3. Mild tricuspid regurgitation and no pulmona ry hypertension. 4. There is no pericardial effusion. FINDINGS -------- ECG rhythm: Sinus rh ythm. ECG rhythm: Resting bradycardia (HR<60bpm). Study: A 2-dimensional transthoracic echoc ardiogram with m-mode, spectral and color flow Doppler was perfomed. Study: This was a techn ically adequate study. Left Ventricle: Overall left ventricular systolic function is normal with, an EF between 55 - 60 %. Left Ventricle: The left ventricle cavity size is normal. Lef t Ventricle: There is mild concentric left ventricular hypertrophy. Left Ventricle: No regio nal wall motion abnormalities. Left Ventricle: Pseudonormal LV diastolic filling pattern, co nsistent with elevated LA pressure and moderate dysfunction (Grade II). Right Ventricle: The right ventricle is normal in size and function. Left Atrium: The left atrium is markedly di lated. Right Atrium: The right atrium is moderately enlarged. Aortic Valve: The aortic valve is mildly calcified. Aortic Valve: There is no evidence of aortic regurgitation. Aortic Leandra ve: There is no evidence of aortic stenosis. Mitral Valve: Mild mitral regurgitation is pres ent. Mitral Valve: Mild mitral annular calcification present. Tricuspid Valve: The tricuspid valve appears structurally normal. Tricuspid Valve: Mild tricuspid regurgitation present. T ricuspid Valve: There is no evidence of pulmonary hypertension. Tricuspid Valve: The right v entricular systolic pressure (pulmonary artery systolic pressure), as measured by Doppler, i s 30.27mmHg. Pericardium: There is no pericardial effusion. Pericardium: No pleural effusion seen. MEASUREMENTS RA Area: 18.95 cm2 Ao asc: 4.39 cm Ao sinus: 3.04 cm LA Diam: 4.77 cm EDV(Teich): 102.98 ml IVSd: 1.19 cm LVIDd: 4.71 cm LVPWd: 1.22 c m LVOT Diam: 1.96 cm %FS: 35.54 % EF(Teich): 64.97 % ESV(Teich): 36.06 ml IVSs: 1. 52 cm LVIDs: 3.03 cm LVPWs: 1.82 cm SV(Teich): 66.91 ml RVIDd: 3.45 cm LAESV(A-L): 117.11 ml LAESV Index (A-L): 66.54 ml/m2 LAAs A2C: 29.59 cm2 LAESV A-L A2C: 105.11 ml LALs A2C: 7.07 cm LAAs A4C: 32.97 cm2 LAESV A-L A4C: 119.49 ml LALs A4C: 7.72 cm TA PSE: 1.59 cm HR: 48.54 BPM AV maxP.21 mmHg AV meanP.37 mmHg AV Vmax: 1.24 m/s AV Vmean: 0.86 m/s AV VTI: 33.73 cm ANATOLIY Vmax: 1.92 cm2 ANATOLIY (VTI): 1.95 cm2 AVAI Vmax: 0.00 cm2/m2 AVAI (VTI): 0.00 cm2/m2 LVCI Dopp: 1.81 l/minm2 LVCO Dopp: 3.19 l/ min HR: 48.32 BPM LVOT maxP.48 mmHg LVOT meanP.58 mmHg LVSI Dopp: 37.56 ml/m 2 LVSV Dopp: 66.11 ml LVOT Vmax: 0.78 m/s LVOT Vmean: 0.60 m/s LVOT VTI: 21.71 cm MV A Stewart: 0.34 m/s MV DecT: 569.43 ms MV E Stewart: 0.66 m/s MV E/A Ratio: 1.95 MV A Dur: 88.48 ms MV DecT: 581.48 ms Septal e': 0.04 m/s Septal E/e': 14.72 Lateral e': 0.0 5 m/s Lateral E/e': 13.17 HR: 47.99 BPM PV maxP.71 mmHg PV meanP.05 mmHg PV Vmax: 0.65 m/s PV Vmean: 0.48 m/s PV VTI: 17.71 cm PV maxP.70 mmHg PV Vmax: 0. 96 m/s RAP: 8 mmHg RV S': 0.07 m/s RVSP: 30.27 mmHg TR maxP.27 mmHg TR Vmax: 2.35 m/s Club Attendant: Authenticated by: Miky Onurgeovani Report Date/Time: 08-22-2018 14:3 8:8 1. The left ventricle is normal in size, mild concentric hypertrophy and normal systolic fu nction EF 55-60%. 2. The right ventricle is normal in size and function. 3. Mild tricuspid r egurgitation and no pulmonary hypertension. 4. There is no pericardial effusion. Ct Head Cervical Spine Without Contrast Result Date: 08/21/2018 CT HEAD WITHOUT CONTRAST; CT CERVICAL SPINE WITHOUT CONTRAST CLINICAL INFORMATION: Head [place] n after fall. Patient found down next to her bed. COMPARISON: CT HEAD WO CONTRAST (08/21/19 19); PROCEDURE: CT Head: Axial non-contrast images were obtained through the head. CT Cervic al Spine: Thin section noncontrast axial images were obtained through the cervical spine. Mu ltiplanar reformations were obtained from the acquisition data. At least one of the followin g CT dose optimization techniques were used: Automated exposure control; Adjustment of mA an d/or kV according to patient size; Use of iterative reconstruction technique. FINDINGS: Ther e degrading of the images due to excessive motion. CT Head: Brain: No intracranial hemorrhag e, midline shift or pathologic mass effect. No cerebral edema, mass lesion, or evidence of i nfarct. There is chronic lacunar infarct of the left basal ganglia and internal capsule. The re is scattered hypoattenuation the cerebral white matter consistent with chronic small vess el ischemic changes. Ventricles and extra-axial fluid spaces: Normal. Paranasal sinuses and mastoid air cells: Normal. Calvarium and extracranial soft tissue: Normal. Orbits: Imaged po rtions of the orbits are normal. CT Cervical Spine: Alignment: Normal. Vertebrae: There is a chronic ununited type 2 odontoid fracture. The odontoid appears partially fused with the a nterior arch of C1. This is unchanged in appearance since previous studies. There is no vazquez dence of an acute fracture. Cervical disc levels: C3-4 there is mild posterior osteophytic s purring and hypertrophic uncovertebral degenerative changes. There mild hypertrophic facet osteoarthrosis. C5-6 there moderate to severe disc space narrowing. There posterior disc os teophyte complex. There bilateral hypertrophic uncovertebral degenerative changes. There i s no significant neural foraminal stenosis. C6-7 disc space is mildly narrowed. The spinal c anal is patent. Facets and posterior spinal elements: There is mild multilevel hypertrophic facet osteoarthrosis. There no evidence of fracture or subluxation. Paraspinal soft tissues : No evidence of acute paraspinal soft tissue abnormality. The thyroid gland demonstrates en largement of the right lobe with multiple nodules which does not appear substantially change d since the previous study. 1. Degrading of the images due to excessive motion. 2. No evidence of acute intracranial in jury. 3. Chronic lacunar infarct of the left basal ganglia and internal capsule. 4. No evide nce of cervical spine fracture. 5. Chronic ununited type 2 odontoid fracture. Dens appears partially fused to the anterior arch C1. 6. Discogenic spondylosis, most advanced at C5-6. S igned by: Chey Dorantes, Colton Sign Date/Time: 08/21/2018 5:52 PM Past Medical History Diagnosis Date Abnormal EKG Alcohol abuse, in remission sober since 1989 CAD (coronary artery disease) CAD (coronary artery disease) of bypass graft occluded SVG > RCA COPD (chronic obstructive pulmonary disease) ([facility]) Hydronephrosis of right kidney Hyperlipidemia Hypertension many years Kidney disease CT (myocardial infarction) ([facility]) 09/05/2012 NSTEMI Morbid obesity ([facility]) weighed over 500 lbs prior to bariatric surgery, lost > 300 lbs Recurrent nephrolithiasis S/P CABG x 4 1998 occluded SVG>RCA; patent CASAS>LAD, patent "Y" seq SVG>D1>OM2 (cath 09/10) S/P PTCA (percutaneous transluminal coronary angioplasty) 3.5x16, 2.75x32 Taxus TRAVIS mid-distal LCx (07/16/03) // 2.5x12 Promus Element TRAVIS R PDA, 3.5 x15 Promus Element TRAVIS distal RCA (09/05/12) Stroke ([facility]) 2013 Right-sided, left facial droop - resolved; mild residual memory deficit Type II diabetes mellitus (HCC) resolved with weight loss following bariatric surgery Past Surgical History Procedure Laterality Date APPENDECTOMY BARIATRIC SURGERY 2006 CARDIAC CATHETERIZATION CHOLECYSTECTOMY CORONARY ANGIOPLASTY WITH STENT PLACEMENT 3.5x16, 2.75x32 Taxus TRAVIS mid-distal LCx (07/16/03) // 2.5x12 Promus Element TRAVIS R PDA, 3.5 x15 Promus Element TRAVIS distal RCA (09/05/12) CORONARY ARTERY BYPASS GRAFT 1998 CASAS>LAD; "Y" sequential SVG>D1>OM2; occluded SVG>RCA heart stent ORIF SHOULDER DISLOCATION W/ HUMERAL FRACTURE Left 2000 fx, fell on ice TONSILLECTOMY PROBLEM LIST Principal Problem: New onset seizure (HCC) Active Problems: HTN (hypertension) CAD (coronary artery disease) S/P CABG x 4 Hyperlipidemia ASSESSMENT & PLAN 72-year-old female with the followin. New onset seizure. Recurrent episodes of seizure after admission. Dose of Keppra incr eased to 750 mg p.o. twice daily as recommended by neurology whose input is greatly apprecia arnaud. -After Keppra has been increased to 750 mg p.o. twice daily no further seizure observed ove rnight. Continue seizure precautions. 2. Unwitnessed fall, on 08/21/2018. -CT scan of the neck showed chronic ununited type II odontoid fracture. -Previously described as chronic changes. Continue fall precautions. Patient denies any n ravi pain. 3. Hypertension. Continue beta-luís therapy. Continue increased dose of lisinopril. 4. History of stroke. Continue Plavix. 5. History of coronary artery disease/history of CABG x4. Continue Plavix, lisinopril and metoprolol. -Currently denies chest pain appears to be compensated. 6. UTI. Continue ceftriaxone. Review urine cultures from [facility]. 7. Hypokalemia this resolved. 8. Atrial fibrillation with RVR. -Rate better controlled. Continue metoprolol. Appreciate cardiology's input and recommend ations. -Long-term anticoagulation currently contraindicated. 9. Deconditioning continue PT/OT. Consider SNF. Case management consulted for discharg e planning. 10. CODE STATUS DNR/DNI. Noe Bolton MD 08/25/2018 8:31 AM onversion Transac tion, Provider Unknown - 08/25/2018 1:47 AM PDTFormatting of this note might be different f rom the original. Nurse Progress Note by Hamida Mccann RN at 08/25/18146 Author: Hamida Mccann RN Service: (none) Author Type: Registered Nurse Filed: 08/25/18 0151 Date of Service: 08/25/18146 Status: Signed Publishing Agent: Hamida Mccann RN (Registered Nurse) Pt. Impulsive, does well distraction coloring and watching movies, sponge bath pt. washed u p while sitting in chair. Chart review completed onver gris Transaction, Provider Unknown - 08/24/2018 5:39 PM PDT Nurse Progress Note by Radhames Armando RN at 08/24/181738 Author: Radhames Armando RN Service: (none) Author Type: Registered Nurse Filed: 08/24/18 174 Date of Service: 08/24/181738 Status: Signed Publishing Agent: Radhames Armando RN (Registered Nurse) Patient impulsive at times to get up and does not use call light. Chair and bed alarm in p lace. No acute changes noted per shift, seizure precautions continued per policy. End of s hift review complete. Radhames Armando RN Tash Humphreys MD - 08/24/2018 12:09 PM PDT Progress Notes by Tash Herzog MD at 08/24/18 120 Author: Tash Herzog MD Service: Neurology Author Type: Physician Filed: 08/24/18 8184 Date of Service: 08/24/18 120 Status: Signed Publishing Agent: Tash Herzog MD (Physician) [facility] Service: Neurology Progress Note Hospital Day: LOS: 3 days SUBJECTIVE Germaine is a 72 yo lady with significant past medical history of CAD, CABG, COPD, HTN, HLD, o besity, remote h/o alcohol abuse, cognitive decline ? who has been admitted since 08/21/18 fo r new onset seizures Events Overnight: I was contacted by Dr. Diop, hospitalist last evening that patient had a recurrent seizure. It lasted less than a minute. Patient had bladder incontinence. When I spoke to patient today she does not recall any shaking but does admit that she lost control of her bladder. She did not think that she bit her tongue. Per our discussion, Dr Diop has increased Keppra to 750 mg oral twice daily. Patient states that her mood is good, she is not feeling tired. Scheduled Medications cefTRIAXone 1 g Intravenous Q24H clopidogrel 75 mg Oral Daily enoxaparin 40 mg Subcutaneous Q24H levETIRAcetam 750 mg Oral BID lisinopril 40 mg Oral Daily metoprolol 25 mg Oral Daily miconazole Topical BID pantoprazole 40 mg Oral QAM AC Continuous Infusions PRN Medications acetaminophen OR acetaminophen, albuterol, LORazepam, ondansetron OR ondansetron, p otassium chloride OR potassium chloride OR potassium chloride OBJECTIVE Vital Signs: BP 146/67 (BP Location: Right upper arm) | Pulse 71 | Temp 97.3 F (36.3 C) (Axillary) | Resp 18 | Ht 1.626 m (5' 4") | Wt 75.1 kg (165 lb 8 oz) | SpO2 94% | ? No | BMI 28.41 kg/m Elderly lady, lying in bed. Comfortable. Pleasant and cooperative with exam Edentulous Tongue - mild hematomas on bilateral lateral aspects Focused neurological exam Alert, not oriented to location, or month, could not guess the holiday despite providing se veral cues, did not know the city where she lives. fluent speech. Follows simple instructio ns. EOMI. No nystagmus. Face symmetric. No pronator drift. No tremors. DATA CBC: Lab Results Component Value Date WBC 5.78 08/22/2018 RBC 3.71 08/22/2018 HGB 11.0 (L) 08/22/2018 HCT 32.5 (L) 08/22/2018 MCV 87.7 08/22/2018 MCH 29.6 08/22/2018 MCHC 33.7 08/22/2018 RDW 49.4 08/22/2018 PLT 198 08/22/2018 MPV 8.9 08/22/2018 DIFFTYPE AUTOMATED 08/22/2018 CMP: Lab Results Component Value Date NA 145 08/23/2018 K 4.0 08/23/2018 CL 110 (H) 08/23/2018 CO2 29 08/23/2018 ANIONGAP 10 08/23/2018 GLUF 77 08/23/2018 BUN 7 (L) 08/23/2018 CREATININE 0.7 08/23/2018 BCR 10 08/22/2018 CA 8.1 (L) 08/23/2018 PROT 5.3 (L) 08/21/2018 ALB 2.7 (L) 08/23/2018 GLOB 1.9 08/21/2018 BILITOT 0.4 08/21/2018 ALP 69 08/21/2018 AST 29 08/21/2018 ALT 15 08/21/2018 EGFR >60 08/23/2018 PROBLEM LIST Principal Problem: New onset seizure (HCC) Active Problems: HTN (hypertension) CAD (coronary artery disease) S/P CABG x 4 Hyperlipidemia ASSESSMENT & PLAN Germaine Blankenship is a 72 y.o. female with significant past medical history of CAD, CABG, COPD, HTN, HLD, obesity, remote h/o alcohol abuse, cognitive decline ? Patient was initially see n at [facility] [place], reportedly had a grand mal seizure at home and a re current one at the OSH. She has been diagnosed with a UTI and started on ceftriaxone. I have reviewed head CT done at the OSH which does not show any space-occupying lesion or large stroke. It appears that patient may have had one brief spell on 08/22 and again on 08/23/2018. On ex amination today patient was alert and cooperative though she is not oriented to time or loca tion. She is able to follow simple commands. She also has evidence of tongue lacerations bi laterally on the lateral aspects. Moves all 4 extremities. Impression New onset generalized tonic-clonic seizures Breakthrough seizures - 2 on onset, 1 on 08/22 and last one on 08/23 Associated urinary tract infection which has been treated. Likely has dementia (not evaluated during current hospitalization but suspected due to exam findings) Recommendations 1. Increase Keppra to 750mg bid (done on 08/23) 2. Seizure precautions at bedside 3 To ambulate with supervision only 4. Patient should not drive or cook, climb ladders or use sharp utensils without supervisio n Should follow up with PCP for evaluation of cognitive decline. Code Status: DNR/DNI Disposition: Floor Code Status: DNR/DNI Tash Herzog MD 08/24/2018 I spent more than 25 minutes in the total care of this patient including review of chart, e xam and formulating a plan of care with the admitting team. Miky Escobar MD - 08/24/2018 10:52 AM PDT Progress Notes by Miky Alamo MD at 08/24/18 1052 Author: Miky Alamo MD Service: Cardiology Author Type: Physician Filed: 08/24/18 7396 Date of Service: 08/24/18 1052 Status: Signed Publishing Agent: Miky Alamo MD (Physician) [facility] Service: Cardiology Progress Note Name of Preschool Substitute Teacher: Miky Alamo MD I have seen the patient on 08/24/2018 up to chair. paroxysmal atrial fibrillation. SUBJECTIVE Denies any complains. Current Facility-Administered Medications: acetaminophen (TYLENOL) tablet 650 mg, 650 mg, Oral, Q6H PRN OR acetaminophen (TYL ENOL) suppository 650 mg, 650 mg, Rectal, Q6H PRN, Raphael Durán MD albuterol (PROVENTIL HFA;VENTOLIN HFA) inhaler, 2 puff, Inhalation, Q4H PRN, Raphael oreilly MD cefTRIAXone (ROCEPHIN) IVPB 1 g, 1 g, Intravenous, Q24H, Raphael Durán MD, 1 g at 0 08/24/18 0551 clopidogrel (PLAVIX) tablet 75 mg, 75 mg, Oral, Daily, Raphael Durán MD, 75 mg at 0 08/24/18 1045 enoxaparin (LOVENOX) injection 40 mg, 40 mg, Subcutaneous, Q24H, Raphael Durán MD, 40 mg at 08/24/18 1047 levETIRAcetam (KEPPRA) tablet 750 mg, 750 mg, Oral, BID, Jeremías Diop MD, 750 mg at 08/24/18 1047 lisinopril (ZESTRIL) tablet 40 mg, 40 mg, Oral, Daily, Jeremías Diop MD, 40 mg at 1045 LORazepam (ATIVAN) injection 1 mg, 1 mg, Intravenous, Q4H PRN, Raphael Durán MD, 1 mg at 08/23/18 1833 metoprolol (TOPROL-XL) 24 hr tablet 25 mg, 25 mg, Oral, Daily, Jeremías Diop MD, 25 m g at 08/24/18 1048 miconazole (MITRAZOL) 2 % powder, , Topical, BID, Jeremías Diop MD ondansetron (ZOFRAN-ODT) disintegrating tablet 4 mg, 4 mg, Oral, Q8H PRN OR ondans etron (ZOFRAN) injection 4 mg, 4 mg, Intravenous, Q8H PRN, Raphael Durán MD pantoprazole (PROTONIX) EC tablet 40 mg, 40 mg, Oral, QAM AC, Raphael Durán MD, 40 mg at 08/24/18 0550 potassium chloride 20 mEq in 250 mL IVPB, 20 mEq, Intravenous, PRN OR potassium ch loride 40 mEq in 520 mL IVPB, 40 mEq, Intravenous, PRN, 40 mEq at 08/22/18 1043 OR potas sium chloride 60 mEq in 530 mL IVPB, 60 mEq, Intravenous, PRN, Jeremías Diop MD OBJECTIVE Vital Signs: BP 132/60 | Pulse 55 | Temp 97.3 F (36.3 C) (Axillary) | Resp 18 | Ht 1.626 m (5' 4 ") | Wt 75.1 kg (165 lb 8 oz) | SpO2 98% | ? No | BMI 28.41 kg/m Intake/Output Summary (Last 24 hours) at 08/24/18 1052 Last data filed at 08/24/18 1010 Gross per 24 hour Intake 4943.22 ml Output 0 ml Net 4943.22 ml Cardiovascular: Regular rhythm, S1 normal and S2 normal. No murmur heard. Pulses: Radial pulses are 2+ on the right side, and 2+ on the left side. Pulmonary/Chest: Effort normal and breath sounds normal. No wheezes. No rales. Abdominal: Soft. No tenderness. Musculoskeletal: No edema. Neurological: Alert. No cranial nerve deficit. Severe dementia. Skin: Warm and dry. DATA Recent Labs Lab 08/23/1836 08/22/18195708/22/1834 08/21/18 0633 NA 145 -- 148* -- 148* K 4.0 3.7 3.2* < > 3.2* CO2 29 -- 31 -- 30 BUN 7* -- 6* -- 8 CREATININE 0.7 -- 0.59 -- 0.57 EGFR >60 -- >60 -- >60 MG -- -- 1.6* -- -- < > = values in this interval not displayed. Recent Labs Lab 08/22/1834 08/21/18 0633 WBC 5.78 9.41 HGB 11.0* 12.4 HCT 32.5* 37.2 MCV 87.7 88.3 PLT 198 157 No results for input(s): CKTOTAL, CKMB, CKMBINDEX, TROPONINI, TSH, INR in the last 168 hour s. Invalid input(s): BRAIN NATRIURETIC PEPTIDE Lab Results Component Value Date CHOL 130 09/06/2012 TRIG 44 09/06/2012 LDL 77 09/06/2012 HDL 45 09/06/2012 GLUF 77 08/23/2018 TSH 0.75 09/06/2012 EK08/22/2018 Last Echo: Last stress test: Last cath: 2012 SVG to RCA occluded. Y shaped SVG to diag and second OM. CASAS to LAD patent. RCA 3.5 x 15 Promus TRAVIS. 2003 Mid LCX 3.5 x 16 and 2.75 x 32 Taxus. Mid to distal LCX Carotid US: AAA screening: Lower extremity US: OTHERS: 1998 CABG X 4 ASSESSMENT & PLAN Patient is 72 y.o. 1. Paroxysmal atrial fibrillation, CHADSVASc score of 4. Not a candidate for anticoagulatio n. 2. Hypertension. Controlled blood pressure. 3. Newly diagnosed seizure with abnormal EEG. 4. Coronary artery disease as mentioned above, previous CABG and PCI. 5. Advanced dementia. 6. Debility. 7. Dyslipidemia. 8. History of cerebrovascular accident in the past. 9. DNR/DNI Recommendations: Multiple comorbidities and complex presentation especially advanced dementia. Patient is not a candidate for anticoagulation or any invasive evaluation. I have discussed the case with Dr. Diop who is aware not of patient dementia. Patient den ies any symptoms. Is not oriented to place time or person. We will continue with current doses of metoprolol succinate 25 mg p.o. Daily. Don't recomme nd changing any doses due to underlying bradycardia. We will continue on levetiracetam for seizure treatment. Clopidogrel secondary to previous cerebrovascular accident. On lisinopril 20 mg p.o. daily for blood pressure control. We will continue to follow. Code Status: DNR/DNI Miky Alamo MD 08/24/2018 Jeremías Reece MD - 08/24/2018 7:25 AM PDT Progress Notes by Jeremías Diop MD at 08/24/18724 Author: Jeremías Diop MD Service: Hospitalist Author Type: Physician Filed: 08/24/18916 Date of Service: 08/24/18724 Status: Signed Publishing Agent: Jeremías Diop MD (Physician) [facility] Service: Hospitalist Progress Note Hospital Day: LOS: 3 days SUBJECTIVE Patient Summary: 72-year-old female with history of hypertension, hyperlipidemia, joss nary artery disease a status post CABG x4, history of alcohol abuse, history of drug use, hi story of nephrolithiasis, history of recent stroke 6 months ago who was transferred from [facility] because of new onset seizures. She had one episode at home described to be generalized tonic-clonic lasting for 5 minutes with postictal state. In the emergency room, she had another witnessed 5-minute tonic-clonic movement. She was loaded with Keppra IV and was given Ativan prior to transfer to [facility]. She is here for further neurologic ev aluate. Of note, the patient was also diagnosed to have UTI and was started on ceftriaxone prior to transfer to [facility]. According to the daughter, patient has not been seen by her regular primary care phys ician for the past 1 and half years. Reportedly, she had a stroke 6 months ago and since, h as been having progressive functional decline. She was supposed to go to a long-term care f acility but patient eventually declined this. Events Overnight: Seen and examined patient. Patient is interactive and pleasant. Had a good breakfast. Al so had a good BM today. Confused at baseline. Denies any complaints. She had another seiz ure like activity yesterday PM controlled with ativan PRN. Scheduled Medications cefTRIAXone 1 g Intravenous Q24H clopidogrel 75 mg Oral Daily enoxaparin 40 mg Subcutaneous Q24H levETIRAcetam 750 mg Oral BID lisinopril 20 mg Oral Daily metoprolol 25 mg Oral Daily miconazole Topical BID pantoprazole 40 mg Oral QAM AC Continuous Infusions sodium chloride (IV) 75 mL/hr at 08/24/18 0515 PRN Medications acetaminophen OR acetaminophen, albuterol, LORazepam, ondansetron OR ondansetron, p otassium chloride OR potassium chloride OR potassium chloride OBJECTIVE Vital Signs: Vitals: 08/23/18 1956 08/23/18 2340 08/24/18 0355 08/24/18 0402 BP: 141/65 154/70 153/68 BP Location: Left upper arm Right upper arm Right upper arm Pulse: 57 (!) 46 (!) 47 Resp: 18 18 18 Temp: 97.8 F (36.6 C) 98.2 F (36.8 C) 97.5 F (36.4 C) TempSrc: Axillary Axillary Axillary SpO2: 97% 98% Weight: 75.1 kg (165 lb 8 oz) Height: Physical Exam General appearance: Awake, appears stated age and no distress. Oriented x1. Very interact irish, no distress, coherent but confused. Head: Normocephalic, without obvious abnormality, atraumatic Neck: no adenopathy, no carotid bruit, no JVD, supple, symmetrical, trachea midline and thy roid not enlarged, symmetric, no tenderness/mass/nodules Lungs: clear to auscultation bilaterally Heart: regular rate and rhythm, S1, S2 normal, no murmur, click, rub or gallop Abdomen: soft, non-tender; bowel sounds normal; no masses, no organomegaly Musculoskeletal: There is no redness, warmth, or swelling of the joints. Limited range of motion noted. Motor strength is 5 out of 5 all extremities bilaterally. Tone is normal. Extremities: extremities normal, atraumatic, no cyanosis or edema Pulses: 2+ and symmetric Skin: Skin color, texture, turgor normal. No rashes or lesions Lymph nodes: Cervical, supraclavicular, and axillary nodes normal. Neuro exam: 5/5 motor. Intact sensory. Cranial nerves II through XII grossly intact. DATA, personally reviewed Recent Labs Lab 08/22/18 0634 08/21/18 0633 WBC 5.78 9.41 HGB 11.0* 12.4 HCT 32.5* 37.2 PLT 198 157 NEUTOPHILPCT 54.33 77.05 MONOPCT 6.07 5.56 Recent Labs Lab 08/23/1836 08/22/18195708/22/1834 08/21/18 0633 NA 145 -- 148* -- 148* K 4.0 3.7 3.2* < > 3.2* CL 110* -- 111* -- 112* CO2 29 -- 31 -- 30 BUN 7* -- 6* -- 8 CREATININE 0.7 -- 0.59 -- 0.57 PROT -- -- -- -- 5.3* BILITOT -- -- -- -- 0.4 ALT -- -- -- -- 15 AST -- -- -- -- 29 < > = values in this interval not displayed. Phosphorus: Lab Results Component Value Date PHOS 2.9 08/23/2018 Radiology, personally reviewed No results found. PROBLEM LIST Principal Problem: New onset seizure (HCC) Active Problems: HTN (hypertension) CAD (coronary artery disease) S/P CABG x 4 Hyperlipidemia Hypokalemia ASSESSMENT & PLAN New onset seizure Much more awake and able to take p.o. Had another seizure like activity yesterday PM. Keppra increased to 750 BID. EEG is abnormal showing diffuse slowing suggestive of encephalopathy of metabolic, degenera tive or vascular origin. No epileptiform activity. Appreciate input from neurology, Dr. Herzog. Patient has underlying vascular dementia. Unlikely to drive or cook or perform risky activ ities. Seizure precaution. Fall precaution. Unwitnessed fall This happened on 08/21/2018. 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 Discogenic spondylosis C5-C6. These are chronic fin dings. Patient does not have a neck pain, neuropathy. Hip and rib x-rays are unremarkable. Fall precaution. Physical therapy consult. Hypertension Continue metoprolol. Increased lisinopril to 40 mg for better BP control. History of stroke Continue Plavix. Coronary artery disease/status post CABG x4 Continue Plavix, lisinopril and metoprolol. UTI Continue ceftriaxone. Will follow-up urine culture from [facility]. Requests have been sent 08/23/2009. Hypokalemia Potassium replacement protocol ordered. Atrial fibrillation with RVR Consulted cardiology, Dr. Alamo, because of comorbidities, he did not recommend any reed ges in regimen or additional testing. Anticoagulation is contraindicated because of falls and underlying dementia. Continue metoprolol. Telemetry bed. Deconditioning Continue PT/OT. Might benefit from SNF rehabilitation. DVT prophylaxis: In place. GI prophylaxis: In place. Disposition: Inpatient. Code Status: DNR/DNI Dictation and cream cheese maker or software, [employer], used which may contain error for similar s ounding words even after review. Personal communication requested for any clarification. JEREMÍAS DIOP MD 08/24/2018 7:25 AM onversion Transactio n, Provider Unknown - 08/24/2018 6:55 AM PDT Nurse Progress Note by Aura Boateng RN at 08/24/18 0655 Author: Aura Boateng RN Service: (none) Author Type: Registered Nurse Filed: 08/24/18 0702 Date of Service: 08/24/18654 Status: Signed Publishing Agent: Aura Boateng RN (Registered Nurse) Oriented to self only with delayed and slurred responses. Pt very lethargic overnight. In continent of urine but up to bathroom for BM this morning. Currently sitting up in chair wi th tab alarm. NS infusing at 75 mL/hr. IV ABX given per order. End of shift and 24 hour chart audit complete. Aura Boateng RN 7:02 AM onver gris Transaction, Provider Unknown - 08/23/2018 6:55 PM PDT Nurse Progress Note by Talita Brock RN at 08/23/181854 Author: Talita Brock RN Service: (none) Author Type: Registered Nurse Filed: 08/23/181855 Date of Service: 08/23/181854 Status: Signed Publishing Agent: Talita Brock RN (Registered Nurse) End of shift chart check complete. onver gris Transaction, Provider Unknown - 08/23/2018 6:39 PM PDT Nurse Progress Note by Talita Brock RN at 08/23/181838 Author: Talita Brock RN Service: (none) Author Type: Registered Nurse Filed: 08/23/181843 Date of Service: 08/23/181838 Status: Signed Publishing Agent: Talita Brock RN (Registered Nurse) 1830 Called to room, pt appeared to be having an absence seizure, unable to rouse patient. Pt began talking again after about 30 seconds and then went back into what appeared to be an absence seizure, eyes rolled back in head, neck fully extended. Ativan administered per PRN order. Pt began speaking again after about 60 seconds, said that she was "tired" and "that was scary." Vital signs remained stable throughout. Dr Diop notified. See new order. Jeremías Reece MD - 08/23/2018 9:43 AM PDTFormatting of this note might be different from the or iginal. Progress Notes by Jeremías Diop MD at 08/23/18942 Author: Jeremías Diop MD Service: Hospitalist Author Type: Physician Filed: 08/23/181846 Date of Service: 08/23/18942 Status: Addendum Publishing Agent: Jeremías Diop MD (Physician) Related Notes: Original Note by Jeremías Diop MD (Physician) filed at 08/23/18 5192 [facility] Service: Hospitalist Progress Note Hospital Day: LOS: 2 days SUBJECTIVE Patient Summary: 72-year-old female with history of hypertension, hyperlipidemia, joss nary artery disease a status post CABG x4, history of alcohol abuse, history of drug use, hi story of nephrolithiasis, history of recent stroke 6 months ago who was transferred from [facility] because of new onset seizures. She had one episode at home described to be generalized tonic-clonic lasting for 5 minutes with postictal state. In the emergency room, she had another witnessed 5-minute tonic-clonic movement. She was loaded with Keppra IV and was given Ativan prior to transfer to [facility]. She is here for further neurologic ev aluate. Of note, the patient was also diagnosed to have UTI and was started on ceftriaxone prior to transfer to [facility]. According to the daughter, patient has not been seen by her regular primary care phys pippa for the past 1 and half years. Reportedly, she had a stroke 6 months ago and since, h as been having progressive functional decline. She was supposed to go to a long-term care f acility but patient eventually declined this. Events Overnight: 08/21/2018 seen and examined patient. Family at bedside. Patient was to drowsy during my e ncounter. She would only make some noise but incoherent. In the late afternoon, patient madrigal d an unwitnessed fall. A second visit with the patient was done. She complained of right-s ided pain on the ribs and the right hip. It is unknown if the patient hit her head and twis arnaud her neck. I came back to the room and there was urine incontinence. 08/22/2018 seen and examined patient. She is much more awake, coherent and engaging but con fused oriented x1 only. Denies having any pain. Patient had an episode of A. fib with rapi d ventricular response. She was given Cardizem however she developed bradycardia. 08/23/2018 seen and examined patient. She is very awake, engaging, coherent but pleasantly confused. Denies having any pain. She was having her morning coffee when seen. Had anothe r episode of atrial fibrillation with RVR overnight but currently sinus rhythm. No shortnes s of breath or chest pain. Scheduled Medications cefTRIAXone 1 g Intravenous Q24H clopidogrel 75 mg Oral Daily enoxaparin 40 mg Subcutaneous Q24H levETIRAcetam 500 mg Oral BID lisinopril 20 mg Oral Daily metoprolol 25 mg Oral Daily miconazole Topical BID pantoprazole 40 mg Oral QAM AC Continuous Infusions sodium chloride (IV) 75 mL/hr at 08/22/18 0927 PRN Medications acetaminophen OR acetaminophen, albuterol, LORazepam, ondansetron OR ondansetron, p otassium chloride OR potassium chloride OR potassium chloride OBJECTIVE Vital Signs: Vitals: 08/23/18 0715 08/23/18 0730 08/23/18 0745 08/23/18 0810 BP: 173/72 BP Location: Left upper arm Pulse: (!) 49 (!) 49 (!) 49 58 Resp: 18 Temp: 97.8 F (36.6 C) TempSrc: Oral SpO2: (!) 82% 99% 97% 99% Weight: Height: Physical Exam General appearance: Awake, appears stated age and no distress. Oriented x1. Very interact irish, no distress, coherent but confused. Head: Normocephalic, without obvious abnormality, atraumatic Neck: no adenopathy, no carotid bruit, no JVD, supple, symmetrical, trachea midline and thy roid not enlarged, symmetric, no tenderness/mass/nodules Lungs: clear to auscultation bilaterally Heart: regular rate and rhythm, S1, S2 normal, no murmur, click, rub or gallop Abdomen: soft, non-tender; bowel sounds normal; no masses, no organomegaly Musculoskeletal: There is no redness, warmth, or swelling of the joints. Limited range of motion noted. Motor strength is 5 out of 5 all extremities bilaterally. Tone is normal. Extremities: extremities normal, atraumatic, no cyanosis or edema Pulses: 2+ and symmetric Skin: Skin color, texture, turgor normal. No rashes or lesions Lymph nodes: Cervical, supraclavicular, and axillary nodes normal. Neuro exam: 5/5 motor. Intact sensory. Cranial nerves II through XII grossly intact. DATA, personally reviewed Recent Labs Lab 08/22/18 0634 08/21/18 0633 WBC 5.78 9.41 HGB 11.0* 12.4 HCT 32.5* 37.2 PLT 198 157 NEUTOPHILPCT 54.33 77.05 MONOPCT 6.07 5.56 Recent Labs Lab 08/23/18 0536 08/22/18195708/22/1834 08/21/18 0633 NA 145 -- 148* -- 148* K 4.0 3.7 3.2* < > 3.2* CL 110* -- 111* -- 112* CO2 29 -- 31 -- 30 BUN 7* -- 6* -- 8 CREATININE 0.7 -- 0.59 -- 0.57 PROT -- -- -- -- 5.3* BILITOT -- -- -- -- 0.4 ALT -- -- -- -- 15 AST -- -- -- -- 29 < > = values in this interval not displayed. Phosphorus: Lab Results Component Value Date PHOS 2.9 08/23/2018 Radiology, personally reviewed No results found. PROBLEM LIST Principal Problem: New onset seizure (HCC) Active Problems: HTN (hypertension) CAD (coronary artery disease) S/P CABG x 4 Hyperlipidemia Hypokalemia ASSESSMENT & PLAN New onset seizure Much more awake and able to take p.o. Continue Keppra to 500 mg twice daily p.o. EEG is abnormal showing diffuse slowing suggestive of encephalopathy of metabolic, degenera tive or vascular origin. No epileptiform activity. Appreciate input from neurology. Patient has underlying vascular dementia. Unlikely to drive or cook or perform risky activ ities. Seizure precaution. Fall precaution. Addendum 6:30 pm: reportedly patient had 2 episodes of seizure described as hyperextension with rolling of eyeballs and jerky movements. Both lasted for less than a minute. Unclear if with postictal state. Will increase keppra to 750 BID. Unwitnessed fall This happened on 08/21/2018. 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 Discogenic spondylosis C5-C6. These are chronic fin dings. Patient does not have a neck pain, neuropathy. Hip and rib x-rays are unremarkable. Fall precaution. Physical therapy consult. Hypertension Continue metoprolol and lisinopril. History of stroke Continue Plavix. Coronary artery disease/status post CABG x4 Continue Plavix, lisinopril and metoprolol. UTI Continue ceftriaxone. Will follow-up urine culture from [facility]. Requests have been sent. Hypokalemia Potassium replacement protocol ordered. Atrial fibrillation with RVR Consulted cardiology, Dr. Alamo, because of comorbidities, he did not recommend any reed ges in regimen or additional testing. Anticoagulation is contraindicated because of falls and underlying dementia. Continue metoprolol. Telemetry bed. Deconditioning Continue PT/OT. Might benefit from SNF rehabilitation. DVT prophylaxis: In place. GI prophylaxis: In place. Disposition: Inpatient. Code Status: DNR/DNI Dictation and cream cheese maker or software, Alector, used which may contain error for similar s ounding words even after review. Personal communication requested for any clarification. JEREMÍAS DIOP MD 08/23/2018 9:43 AM Miky Escobar MD - 08/23/2018 8:09 AM PDT Progress Notes by Miky Alamo MD at 08/23/18808 Author: Miky Alamo MD Service: Cardiology Author Type: Physician Filed: 08/23/18 0838 Date of Service: 08/23/18808 Status: Signed Publishing Agent: Miky Alamo MD (Physician) [facility] Service: Cardiology Progress Note Name of Preschool Substitute Teacher: Miky Alamo MD I have seen the patient on 08/23/2018 still having episodes of paroxysmal atrial fibrillatio n. SUBJECTIVE Denies any complains. Current Facility-Administered Medications: acetaminophen (TYLENOL) tablet 650 mg, 650 mg, Oral, Q6H PRN OR acetaminophen (TYL ENOL) suppository 650 mg, 650 mg, Rectal, Q6H PRN, Raphael Durán MD albuterol (PROVENTIL HFA;VENTOLIN HFA) inhaler, 2 puff, Inhalation, Q4H PRN, Raphael oreilly MD cefTRIAXone (ROCEPHIN) IVPB 1 g, 1 g, Intravenous, Q24H, Raphael Durán MD, 1 g at 0 08/23/18 0630 clopidogrel (PLAVIX) tablet 75 mg, 75 mg, Oral, Daily, Raphael Durán MD, 75 mg at 0 08/22/18 0933 enoxaparin (LOVENOX) injection 40 mg, 40 mg, Subcutaneous, Q24H, Raphael Durán MD, 40 mg at 08/22/18 0934 levETIRAcetam (KEPPRA) tablet 500 mg, 500 mg, Oral, BID, Jeremías Diop MD, 500 mg at 08/22/18 2205 lisinopril (ZESTRIL) tablet 20 mg, 20 mg, Oral, Daily, Raphael Durán MD, 20 mg at 0 08/22/18 0933 LORazepam (ATIVAN) injection 1 mg, 1 mg, Intravenous, Q4H PRN, Raphael Durán MD metoprolol (TOPROL-XL) 24 hr tablet 25 mg, 25 mg, Oral, Daily, Jeremías Diop MD, 25 m g at 08/22/18 0934 miconazole (MITRAZOL) 2 % powder, , Topical, BID, Jeremías Diop MD ondansetron (ZOFRAN-ODT) disintegrating tablet 4 mg, 4 mg, Oral, Q8H PRN OR ondans etron (ZOFRAN) injection 4 mg, 4 mg, Intravenous, Q8H PRN, Raphael Durán MD pantoprazole (PROTONIX) EC tablet 40 mg, 40 mg, Oral, QAM AC, Raphael Durán MD, 40 mg at 08/23/18 0627 potassium chloride 20 mEq in 250 mL IVPB, 20 mEq, Intravenous, PRN OR potassium ch loride 40 mEq in 520 mL IVPB, 40 mEq, Intravenous, PRN, 40 mEq at 08/22/18 1043 OR potas sium chloride 60 mEq in 530 mL IVPB, 60 mEq, Intravenous, PRN, Jeremías Diop MD sodium chloride 0.9 % infusion, , Intravenous, Continuous, Jeremías Diop MD, Last Rat e: 75 mL/hr at 08/22/18 09 OBJECTIVE Vital Signs: BP 125/71 | Pulse (!) 49 | Temp 97.5 F (36.4 C) (Oral) | Resp 18 | Ht 1.626 m (5' 4 ") | Wt 71.4 kg (157 lb 6.4 oz) | SpO2 97% | ? No | BMI 27.02 kg/m Intake/Output Summary (Last 24 hours) at 08/23/18 08 Last data filed at 08/22/18 2343 Gross per 24 hour Intake 0 ml Output 500 ml Net -500 ml Cardiovascular: Regular rhythm, S1 normal and S2 normal. No murmur heard. Pulses: Radial pulses are 2+ on the right side, and 2+ on the left side. Pulmonary/Chest: Effort normal and breath sounds normal. No wheezes. No rales. Abdominal: Soft. No tenderness. Musculoskeletal: No edema. Neurological: Alert. No cranial nerve deficit. Severe dementia. Skin: Warm and dry. DATA Recent Labs Lab 08/23/18 0536 08/22/18195708/22/18 0634 08/21/1833 NA 145 -- 148* -- 148* K 4.0 3.7 3.2* < > 3.2* CO2 29 -- 31 -- 30 BUN 7* -- 6* -- 8 CREATININE 0.7 -- 0.59 -- 0.57 EGFR >60 -- >60 -- >60 MG -- -- 1.6* -- -- < > = values in this interval not displayed. Recent Labs Lab 08/22/18 0634 08/21/18 0633 WBC 5.78 9.41 HGB 11.0* 12.4 HCT 32.5* 37.2 MCV 87.7 88.3 PLT 198 157 No results for input(s): CKTOTAL, CKMB, CKMBINDEX, TROPONINI, TSH, INR in the last 168 hour s. Invalid input(s): BRAIN NATRIURETIC PEPTIDE Lab Results Component Value Date CHOL 130 09/06/2012 TRIG 44 09/06/2012 LDL 77 09/06/2012 HDL 45 09/06/2012 GLUF 77 08/23/2018 TSH 0.75 09/06/2012 EK08/22/2018 Last Echo: Last stress test: Last cath: 2012 SVG to RCA occluded. Y shaped SVG to diag and second OM. CASAS to LAD patent. RCA 3.5 x 15 Promus TRAVIS. 2003 Mid LCX 3.5 x 16 and 2.75 x 32 Taxus. Mid to distal LCX Carotid US: AAA screening: Lower extremity US: OTHERS: 1998 CABG X 4 ASSESSMENT & PLAN Patient is 72 y.o. 1. Paroxysmal atrial fibrillation, CHADSVASc score of 4. Not a candidate for anticoagulatio n. 2. Hypertension. 3. Newly diagnosed seizure with abnormal EEG. 4. Coronary artery disease as mentioned above, previous CABG and PCI. 5. Advanced dementia. 6. Debility. 7. Dyslipidemia. 8. History of cerebrovascular accident in the past. 9. DNR/DNI Recommendations: Multiple comorbidities and complex presentation especially advanced dementia. I have discu ssed the case with Dr. Diop who is aware not of patient dementia. Patient denies any sympt oms. Is not oriented to place time or person. Patient is not a candidate for anticoagulation or any invasive evaluation. We will continue with current doses of metoprolol succinate 25 mg p.o. Daily. Don't recomme nd changing any doses. We will continue on levetiracetam for seizure treatment. Apparently on clopidogrel secondary to previous cerebrovascular accident. On lisinopril 20 mg p.o. daily for blood pressure control. We will continue to follow. Code Status: DNR/DNI Miky Alamo MD 08/23/2018 onversion Transac tion, Provider Unknown - 08/23/2018 7:53 AM PDTFormatting of this note might be different f rom the original. Nurse Progress Note by Natalie Castillo RN at 08/23/18 3590 Author: Natalie Castillo RN Service: (none) Author Type: Registered Nurse Filed: 08/23/18 08 Date of Service: 08/23/18 2843 Status: Signed Publishing Agent: Natalie Castillo RN (Registered Nurse) Pt SB of shift until 611 when pt had an episode of a-fib with RVR, HR 120-140s. Pt convert ed back to SB at 0637 without intervention. Pt A&O x1 during shift. Pt was impulsive with am bulation, bed and tab alarm were required. No electrolytes required during shift, no PRN med s given. End of shift chart review completed. onver gris Coxaction, Provider Unknown - 08/22/2018 11:56 AM PDT Progress Notes by Rhonda An RD at 08/22/18 115 Author: Rhonda An RD Service: (none) Author Type: Registered Dietitian Filed: 08/22/18 1150 Date of Service: 08/22/18 115 Status: Signed Publishing Agent: Rhonda An RD (Registered Dietitian) 08/22/18 1140 Subjective Timepoint Admit (pressure injury ) Pt c/o Pt reports she did not eat this morning. Waiting for lunch to arrive. Reports she normally has a good appetite. Per RN, pt remains confused. Diet Experience Self-selected diet(s) followed Pt reports she eats 1-3 meals daily. No diet restrictions. No food allergies. States at times she will drink 2 protein shakes at a time, sometimes mo re. Food Intake Type of Food / Meals DMA Nutrition-Focused Physical Findings Digestive System (Mouth to Rectum) On modified diet per BUSINESS PROCESS ARCHITECT. Pt denies chewing or swallowi ng issues. Skin Wound care consult pending. Pt noted to have redness/rash under breasts and groin. Anthropometrics Weight change Pt reports she has lost a little bit of wt, but cannot quantify. Per medical record review, wt noted to be up 5.8 kg over past 3 months Biochemical data, medical tests, and procedures reviewed Biochemical data, medical tests, and procedures reviewed K, Mg low Recommendations Recommended energy needs Continue diet per BUSINESS PROCESS ARCHITECT. House trays. Supplements available if nee ded. Monitor and follow as indicated. Nutritional Risk Nutritional risk Low / moderate Follow up date 08/28/18 Jeremías Reece MD - 08/22/2018 9:02 AM PDTFormatting of this note might be different from the or iginal. Progress Notes by Jeremías Diop MD at 08/22/18901 Author: Jeremías Diop MD Service: Hospitalist Author Type: Physician Filed: 08/22/18 1428 Date of Service: 08/22/18901 Status: Signed Publishing Agent: Jeremías Diop MD (Physician) [facility] Service: Hospitalist Progress Note Hospital Day: LOS: 1 day SUBJECTIVE Patient Summary: 72-year-old female with history of hypertension, hyperlipidemia, joss nary artery disease a status post CABG x4, history of alcohol abuse, history of drug use, hi story of nephrolithiasis, history of recent stroke 6 months ago who was transferred from [facility] because of new onset seizures. She had one episode at home described to be generalized tonic-clonic lasting for 5 minutes with postictal state. In the emergency room, she had another witnessed 5-minute tonic-clonic movement. She was loaded with Keppra IV and was given Ativan prior to transfer to [facility]. She is here for further neurologic ev aluate. Of note, the patient was also diagnosed to have UTI and was started on ceftriaxone prior to transfer to [facility]. According to the daughter, patient has not been seen by her regular primary care phys pippa for the past 1 and half years. Reportedly, she had a stroke 6 months ago and since, h as been having progressive functional decline. She was supposed to go to a long-term care f acility but patient eventually declined this. Events Overnight: 08/21/2018 seen and examined patient. Family at bedside. Patient was to drowsy during my e ncounter. She would only make some noise but incoherent. In the late afternoon, patient madrigal d an unwitnessed fall. A second visit with the patient was done. She complained of right-s ided pain on the ribs and the right hip. It is unknown if the patient hit her head and twis arnaud her neck. I came back to the room and there was urine incontinence. 08/22/2018 seen and examined patient. She is much more awake, coherent and engaging but con fused oriented x1 only. Denies having any pain. Patient had an episode of A. fib with rapi d ventricular response. She was given Cardizem however she developed bradycardia. Scheduled Medications cefTRIAXone 1 g Intravenous Q24H clopidogrel 75 mg Oral Daily enoxaparin 40 mg Subcutaneous Q24H levETIRAcetam 500 mg Intravenous Q12H lisinopril 20 mg Oral Daily metoprolol 25 mg Oral Daily pantoprazole 40 mg Oral QAM AC Continuous Infusions sodium chloride (IV) 75 mL/hr at 08/21/18 0900 PRN Medications acetaminophen OR acetaminophen, albuterol, LORazepam, ondansetron OR ondansetron, p otassium chloride OR potassium chloride OR potassium chloride OBJECTIVE Vital Signs: Vitals: 08/22/18 0100 08/22/18 0409 08/22/18 0854 08/22/18 0856 BP: 167/78 152/74 (!) 154/99 157/81 BP Location: Left upper arm Left upper arm Pulse: 54 (!) 48 51 Resp: 16 16 Temp: 96.9 F (36.1 C) 97.5 F (36.4 C) TempSrc: Axillary Oral SpO2: 96% 97% 97% Weight: 71.3 kg (157 lb 3.2 oz) Height: Physical Exam General appearance: Awake, appears stated age and no distress. Oriented x1. More engaging , coherent but confused. Head: Normocephalic, without obvious abnormality, atraumatic Neck: no adenopathy, no carotid bruit, no JVD, supple, symmetrical, trachea midline and thy roid not enlarged, symmetric, no tenderness/mass/nodules Lungs: clear to auscultation bilaterally Heart: regular rate and rhythm, S1, S2 normal, no murmur, click, rub or gallop Abdomen: soft, non-tender; bowel sounds normal; no masses, no organomegaly Musculoskeletal: There is no redness, warmth, or swelling of the joints. Limited range of motion noted. Motor strength is 5 out of 5 all extremities bilaterally. Tone is normal. Extremities: extremities normal, atraumatic, no cyanosis or edema Pulses: 2+ and symmetric Skin: Skin color, texture, turgor normal. No rashes or lesions Lymph nodes: Cervical, supraclavicular, and axillary nodes normal. Neuro exam: 5/5 motor. Intact sensory. Cranial nerves II through XII grossly intact. DATA, personally reviewed Recent Labs Lab 08/22/18 0634 08/21/18 0633 WBC 5.78 9.41 HGB 11.0* 12.4 HCT 32.5* 37.2 PLT 198 157 NEUTOPHILPCT 54.33 77.05 MONOPCT 6.07 5.56 Recent Labs Lab 08/22/18 0634 08/21/18 1442 08/21/18 0633 NA 148* -- 148* K 3.2* 4.0 3.2* CL 111* -- 112* CO2 31 -- 30 BUN 6* -- 8 CREATININE 0.59 -- 0.57 PROT -- -- 5.3* BILITOT -- -- 0.4 ALT -- -- 15 AST -- -- 29 Phosphorus: Lab Results Component Value Date PHOS 3.0 08/22/2018 Radiology, personally reviewed No results found. PROBLEM LIST Principal Problem: New onset seizure (HCC) Active Problems: HTN (hypertension) CAD (coronary artery disease) S/P CABG x 4 Hyperlipidemia Hypokalemia ASSESSMENT & PLAN New onset seizure Much more awake and able to take p.o. We will switch Keppra to 500 mg twice daily p.o. EEG is abnormal showing diffuse slowing suggestive of encephalopathy of metabolic, degenera tive or vascular origin. No epileptiform activity. Appreciate input from neurology. Patient has underlying vascular dementia. Unlikely to drive or cook or perform risky activ ities. Seizure precaution. Fall precaution. Unwitnessed fall This happened on 08/21/2018. 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 Discogenic spondylosis C5-C6. These are chronic fin dings. Patient does not have a neck pain, neuropathy. Hip and rib x-rays are unremarkable. Fall precaution. Physical therapy consult. Hypertension Continue metoprolol and lisinopril. History of stroke Continue Plavix. Coronary artery disease/status post CABG x4 Continue Plavix, lisinopril and metoprolol. UTI Continue ceftriaxone. Will follow-up urine culture from [facility]. Hypokalemia Potassium replacement protocol ordered. Atrial fibrillation with RVR Patient became bradycardic after Cardizem 10 mg IV. Consulted cardiology, Dr. Alamo, because of comorbidities, he did not recommend any reed ges in regimen or additional testing. Anticoagulation is contraindicated because of falls and underlying dementia. Continue metoprolol. Telemetry bed. DVT prophylaxis: In place. GI prophylaxis: In place. Disposition: Inpatient. Code Status: DNR/DNI Dictation and cream cheese maker or software, Alector, used which may contain error for similar s ounding words even after review. Personal communication requested for any clarification. JEREMÍAS DIOP MD 08/22/2018 9:02 AM onversion Transactio n, Provider Unknown - 08/22/2018 7:03 AM PDT Nurse Progress Note by Natalie Castillo RN at 08/22/18702 Author: Natalie Castillo RN Service: (none) Author Type: Registered Nurse Filed: 08/22/18799 Date of Service: 08/22/18702 Status: Signed Publishing Agent: Natalie Castillo RN (Registered Nurse) Pt's HR ranged from mid 40s-150s during shift. Pt had a-fib with RVR with HR fluctuating fr om 100-150, Hercl contacted and no new orders placed due to recent SB and low BP after dilti azem given prior to shift. At 2320 pt's HR went from 130 to 52 and HR remianed in 40s-50s fo r remained of shift. Pt A&Ox1, follows commands. Bed alarm and tab alarm on. Pt on electroly te protocol for potassium, no replacement required. Pt NPO until speech eval. End of shift c irvin review completed onver gris Transaction, Provider Unknown - 08/21/2018 7:01 PM PDT Nurse Progress Note by Susan Buckner RN at 08/21/181900 Author: Susan Buckner RN Service: (none) Author Type: Registered Nurse Filed: 08/21/181907 Date of Service: 08/21/181900 Status: Signed Publishing Agent: Susan Buckner RN (Registered Nurse) Post fall re-assessment, pt continues to have no signs of injury, see imaging as well. Pt m uch more alert and active in bed, pt talking more, but remains confused as per baseline at b eginning of shift. At 1800 pt converted into A fib with RVR, rates 130-140's, Dr. Diop noti fied and cardizem push given, see MAR. Pt HR now 110-120's, SBP 150 for majority of shift, p ost cardizem push SBP 110's. Pt remains on room air and afebrile. Hourly rounding performed to assess for pt needs. Potassium replaced x1 today per protocol. End of shift audit complet kacy Buckner RN onver gris Transaction, Provider Unknown - 08/21/2018 3:44 PM PDT Nurse Progress Note by Susan Buckner RN at 08/21/18 1544 Author: Susan Buckner RN Service: (none) Author Type: Registered Nurse Filed: 08/21/18 1606 Date of Service: 08/21/18 1544 Status: Signed Publishing Agent: Susan Buckner RN (Registered Nurse) Pt found down next to bed by CINTIA Gilmore, around 1510. Pt responsive and only c/o pain on R s emerson rating it 2/10, no c/o of head, neck or chest pain. Dr. Diop came and assessed the pt a t bedside, with MD samuel pt was transferred back into bed using lift. Very large incontinent ep isode of urine. No injuries noted at this time, small amount of redness on R hip, no skin br eakdown, awaiting CT and Xray. Side rails up and padded, fall mats placed on both sides of b ed, and fall risk signs on door, and bed alarm on. Susan Buckner RN onver gris Transaction, Provider Unknown - 08/21/2018 11:56 AM PDT Case Management by Blanca Calvert RN at 08/21/18 1156 Author: Blanca Calvert RN Service: (none) Author Type: Registered Nurse Filed: 08/21/18 1217 Date of Service: 08/21/18 1156 Status: Signed Publishing Agent: Blanca Calvert, RN (Registered Nurse) Met with pt, daughter and daughter's spouse, daughter answered CM's questions, pt was unabl e to participate. Per daughter pt was only released from [facility], ~ 2 mths ago, she was transferred t here from [facility] after having a stroke, she left the Facility AMA. She lives with her (per daughter, he is 15 yrs younger than her, and is living off h er social security, does not work) in a trailer that has no running hot water and a non func tional kitchen and poor toilet conditions. She goes to her daughter who lives one mile awar e for showers. Pt has a rehabilitation caseworker Scarlett [phone], who will be back in office on Friday. She is rec eiving caregiving services, she is not sure the number of hours she is receiving. Caregiver s are from [employer] [facility]. Per daughter because of her poor living conditions, they has recently found her a Group [facility], but pt refused, did not want to leave her . They are now in the process of tr sherly to find a place for a couple. She requires assistance with dressing and showering, does not use DME. She takes Plavix daily. She is not participating in outpatient medical services, no home oxygen, cpap, dialysis or home health. 08/21/18 1146 Discharge Planning Evaluation Admitting Diagnosis New onset seizure. Readmission No Living Arrangements Spouse/significant other Support Systems Spouse/significant other;Children Type of Residence Private residence House type (Lives in a trailer with spouse, has no running hot water, and poor toilet facil ites. Livs mostly on microwavable foods, goes to daughter's home for showers.) Independent with ADL's No-comment (Needs assistance with dressing & showering.) Independent with Mobility Yes Home Care Services Yes Type of Home Care Services Attendant (Receives caregiving services through [facility], [place].) Caregiver after Discharge No Mental Status Unable to answer questions (Daughter answered CM's questions, pt was sleeping.) Power of Personal Computer Network Engineer No Anticipated Discharge Plan Post Acute Care Needs Other (comment) (TBD) Plan communicated to patient/family Yes Resources Financial concerns No Transportation issues No Patient/Family concerns Yes (Daughter and her spouse expressed concern about pt's living conditions.) Prescription Plan Yes Name of Pharmacy [facility] Previous home health equipment No Vascular access device No Ostomy/Drains/Appliances No Anticipated Disposition Facility Type Other (Comment) Pt is a 72 y.o., female Patient's PCP is: Daughter is working on trying to find her a new PCP. Patient's insurance: Medicare/Medicaid [place]. Coverage concerns: None. Medication coverage/concerns: Yes/None. Community resources utilized / needed: Mechanical Cad Designer through [facility] Scarlett [phone]. Assistance in transportation: TBD. Identification of any specific education / training: None. Barriers to Discharge / Alternative housing needed: Anticipated DCP: TBD pending clinical course. BLANCA CALVERT RN,CM. Caitlin Kelly, Provider Unknown - 08/21/2018 9:46 AM PDT Progress Notes by Silas Gomez RPH at 08/21/18945 Author: Silas Gomez RPH Service: Pharmacy Author Type: Pharmacist Filed: 08/21/18945 Date of Service: 08/21/18945 Status: Signed Publishing Agent: Silas Gomez RPH (Pharmacist) Clinical Pharmacy Note: Renal Monitoring Germaine Blankenship 72 y.o. female Ht Readings from Last 1 Encounters: 08/21/18 1.626 m (5' 4") Wt Readings from Last 1 Encounters: 08/21/18 76.2 kg (168 lb) CREATININE Date Value Ref Range Status 08/21/2018 0.57 0.50 - 1.00 mg/dL Final Serum creatinine: 0.57 mg/dL 08/21/18632 Estimated creatinine clearance: 87.8 mL/min Pharmacy dosing for renal function per Dr. Durán. Currently, there are no medications needing to be adjusted. Pharmacy will continue to monit or for changes in medication orders and in renal function and adjust accordingly. Silas Gomez RPh 08/21/2018 9:46 AM Laura Haas Speech Pathologist - 08/21/2018 8:26 AM PDTFormatting of this note might be diff erent from the original. Therapy Progress Note by Laura Cisneros MS CCC-BUSINESS PROCESS ARCHITECT at 08/21/18825 Author: Laura Cisneros MS CCC-BUSINESS PROCESS ARCHITECT Service: (none) Author Type: Speech and Language Pat hologist Filed: 08/21/18826 Date of Service: 08/21/18825 Status: Signed Publishing Agent: Laura Cisneros MS CCC-BUSINESS PROCESS ARCHITECT (Speech and Language Pathologist) 08/21/18799 BUSINESS PROCESS ARCHITECT Last Visit BUSINESS PROCESS ARCHITECT Received On 08/21/18 Requires BUSINESS PROCESS ARCHITECT Follow Up On hold Attempted, but pt is somnolent and not able to wake for RN. RN to call if she becomes alert and appropriate to participate in evaluation. Laura Cisneros MS CCC-BUSINESS PROCESS ARCHITECT 08/21/18 8:27 AM Jeremías Taveras MD - 08/21/2018 8:00 AM PDT Progress Notes by Jeremías Diop MD at 08/21/18 08 Author: Jeremías Diop MD Service: Hospitalist Author Type: Physician Filed: 08/21/181749 Date of Service: 08/21/18799 Status: Addendum Publishing Agent: Jeremías Diop MD (Physician) Related Notes: Original Note by Jeremías Diop MD (Physician) filed at 08/21/18 5739 [facility] Service: Hospitalist Progress Note Hospital Day: LOS: 0 days SUBJECTIVE Patient Summary: 72-year-old female with history of hypertension, hyperlipidemia, joss nary artery disease a status post CABG x4, history of nephrolithiasis, history of recent str arsen 6 months ago who was transferred from [facility] because of new onset seiz ures. She had one episode at home described to be generalized tonic-clonic lasting for 5 mi nutes with postictal state. In the emergency room, she had another witnessed 5-minute tonic -clonic movement. She was loaded with Keppra IV and was given Ativan prior to transfer to [facility]. She is here for further neurologic evaluate. Of note, the patient was also diagnose d to have UTI and was started on ceftriaxone prior to transfer to [facility]. According to the daughter, patient has not been seen by her regular primary care phys ician for the past 1 and half years. Reportedly, she had a stroke 6 months ago and since, h as been having progressive functional decline. She was supposed to go to a long-term care [facility] but patient eventually declined this. Events Overnight: Seen and examined patient. Family at bedside. Patient was to drows y during my encounter. She would only make some noise but incoherent. In the late afternoo n, patient had an unwitnessed fall. A second visit with the patient was done. She complain ed of right-sided pain on the ribs and the right hip. It is unknown if the patient hit her head and twisted her neck. I came back to the room and there was urine incontinence. Scheduled Medications buPROPion 75 mg Oral Once cefTRIAXone 1 g Intravenous Q24H clopidogrel 75 mg Oral Daily enoxaparin 40 mg Subcutaneous Q24H levETIRAcetam 500 mg Intravenous Q12H lisinopril 20 mg Oral Daily metoprolol 25 mg Oral Daily pantoprazole 40 mg Oral QAM AC Continuous Infusions sodium chloride (IV) 125 mL/hr at 08/21/18 0507 PRN Medications acetaminophen OR acetaminophen, albuterol, LORazepam, ondansetron OR ondansetron OBJECTIVE Vital Signs: Vitals: 08/21/18 0439 08/21/18 0632 08/21/18 0753 BP: 168/81 156/77 154/83 BP Location: Left upper arm Left upper arm Left upper arm Pulse: 74 56 54 Resp: 18 12 14 Temp: 97.4 F (36.3 C) 97 F (36.1 C) 97.6 F (36.4 C) TempSrc: Oral Axillary Axillary SpO2: 94% 98% 97% Weight: 76.2 kg (168 lb) Height: 1.626 m (5' 4") Physical Exam General appearance: Lethargic, appears stated age and no distress. Patient is nonverbal an d did not cooperate. Head: Normocephalic, without obvious abnormality, atraumatic Neck: no adenopathy, no carotid bruit, no JVD, supple, symmetrical, trachea midline and thy roid not enlarged, symmetric, no tenderness/mass/nodules Lungs: clear to auscultation bilaterally Heart: regular rate and rhythm, S1, S2 normal, no murmur, click, rub or gallop Abdomen: soft, non-tender; bowel sounds normal; no masses, no organomegaly Musculoskeletal: There is no redness, warmth, or swelling of the joints. Limited range of motion noted. Motor strength is 5 out of 5 all extremities bilaterally. Tone is normal. Extremities: extremities normal, atraumatic, no cyanosis or edema Pulses: 2+ and symmetric Skin: Skin color, texture, turgor normal. No rashes or lesions Lymph nodes: Cervical, supraclavicular, and axillary nodes normal. Neuro exam: 5/5 motor. Intact sensory. Cranial nerves II through XII grossly intact. DATA, personally reviewed Recent Labs Lab 08/21/18 0633 WBC 9.41 HGB 12.4 HCT 37.2 PLT 157 NEUTOPHILPCT 77.05 MONOPCT 5.56 Recent Labs Lab 08/21/18 0633 NA 148* K 3.2* CL 112* CO2 30 BUN 8 CREATININE 0.57 PROT 5.3* BILITOT 0.4 ALT 15 AST 29 Phosphorus: Lab Results Component Value Date PHOS 4.0 09/06/2012 Radiology, personally reviewed No results found. PROBLEM LIST Principal Problem: New onset seizure (HCC) Active Problems: HTN (hypertension) CAD (coronary artery disease) S/P CABG x 4 Hyperlipidemia Hypokalemia ASSESSMENT & PLAN New onset seizure Patient will be loaded with Keppra 500 mg twice daily. In the afternoon when I got called because of unwitnessed fall. Patient had incontinence and was drowsy. It is unclear if the patient had another seizure versus trying to get up because of inconti nence. Discussed the case with Dr. Herzog of neurology. She recommended an extra dose of Keppr a 500 mg x 1 on top of the Keppra 500 mg twice daily. Follow-up EEG. Reviewed CAT scan of the head with neurology, unremarkable findings. Seizure precaution. Fall precaution. Unwitnessed fall Patient was found on the floor unwitnessed with urine incontinence but does not appear to b e in postictal condition. Patient complained of right-sided pain. Check CAT scan of the head noncontrast, check cervical spine noncontrast ordered ELVIS and c ema back no acute fractures or injury. Check rib cage x-ray, right hip x-ray. Fall precaution. Physical therapy consult. Hypertension Continue metoprolol and lisinopril. History of stroke Continue Plavix. Coronary artery disease/status post CABG x4 Continue Plavix, lisinopril and metoprolol. UTI Continue ceftriaxone. Will follow-up urine culture from [facility]. DVT prophylaxis: In place. GI prophylaxis: In place. Disposition: Inpatient. 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 Personal communication requested for any clarification. JEREMÍAS DIOP MD 08/21/2018 8:00 AM documented in this en counter Plan of Treatment +--------+---------+ + + + [...] | CBC NO DIFFERENTIAL | Routin | 08/27/2018 | | Results for this | | | e | 4:33 AM | | procedure are in the | | | | PDT | | results section. | + +--------+ + + + | PHOSPHORUS | Routin | 08/27/2018 | | Results for this | | | e | 4:33 AM | | procedure are in the | | | | PDT | | results section. | + +--------+ + + + | MAGNESIUM | Routin | 08/27/2018 | | Results for this | | | e | 4:33 AM | | procedure are in the | | | | PDT | | results section. | + +--------+ + + + | BASIC METABOLIC | Routin | 08/27/2018 | | Results for this | | PANEL | e | 4:33 AM | | procedure are in the | | | | PDT | | results section. | + +--------+ + + + | POTASSIUM | Routin | 08/26/2018 | | Results for this | | | e | 2:21 PM | | procedure are in the | | | | PDT | | results section. | + +--------+ + + + | CBC NO DIFFERENTIAL | Routin | 08/26/2018 | | Results for this | | | e | 6:30 AM | | procedure are in the | | | | PDT | | results section. | + +--------+ + + + | PHOSPHORUS | Routin | 08/26/2018 | | Results for this | | | e | 6:30 AM | | procedure are in the | | | | PDT | | results section. | + +--------+ + + + | MAGNESIUM | Routin | 08/26/2018 | | Results for this | | | e | 6:30 AM | | procedure are in the | | | | PDT | | results section. | + +--------+ + + + | COMPREHENSIVE | Routin | 08/26/2018 | | Results for this | | METABOLIC PANEL | e | 6:30 AM | | procedure are in the | | | | PDT | | results section. | + +--------+ + + + | RENAL FUNCTION PANEL | Routin | 08/23/2018 | | Results for this | | | e | 5:36 AM | | procedure are in the | | | | PDT | | results section. | + +--------+ + + + | POTASSIUM | Routin | 08/22/2018 | | Results for this | | | e | 7:58 PM | | procedure are in the | | | | PDT | | results section. | + +--------+ + + + | ECHO COMPLETE | Routin | 08/22/2018 | | Results for this | | | e | 8:44 AM | | procedure are in the | | | | PDT | | results section. | + +--------+ + + + | ECG 12 LEAD | Routin | 08/22/2018 | | Results for this | | | e | 7:29 AM | | procedure are in the | | | | PDT | | results section. | + +--------+ + + + | EXTERNAL LAB: CBC | Routin | 08/22/2018 | | Results for this | | | e | 6:34 AM | | procedure are in the | | | | PDT | | results section. | + +--------+ + + + | PHOSPHORUS | Routin | 08/22/2018 | | Results for this | | | e | 6:34 AM | | procedure are in the | | | | PDT | | results section. | + +--------+ + + + | MAGNESIUM | Routin | 08/22/2018 | | Results for this | | | e | 6:34 AM | | procedure are in the | | | | PDT | | results section. | + +--------+ + + + | BASIC METABOLIC | Routin | 08/22/2018 | | Results for this | | PANEL | e | 6:34 AM | | procedure are in the | | | | PDT | | results section. | + +--------+ + + + | XR HIP RIGHT 2-3 | Routin | 08/21/2018 | | Results for this | | VIEWS | e | 9:49 PM | | procedure are in the | | | | PDT | | results section. | + +--------+ + + + | XR RIBS RIGHT W PA | Routin | 08/21/2018 | | Results for this | | CHEST | e | 9:49 PM | | procedure are in the | | | | PDT | | results section. | + +--------+ + + + | CT HEAD CERVICAL | Routin | 08/21/2018 | | Results for this | | SPINE WO CONTRAST | e | 5:07 PM | | procedure are in the | | | | PDT | | results section. | + +--------+ + + + | POTASSIUM | Routin | 08/21/2018 | | Results for this | | | e | 2:42 PM | | procedure are in the | | | | PDT | | results section. | + +--------+ + + + | EXTERNAL LAB: CBC | Routin | 08/21/2018 | | Results for this | | | e | 6:33 AM | | procedure are in the | | | | PDT | | results section. | + +--------+ + + + | LACTIC ACID | Routin | 08/21/2018 | | Results for this | | | e | 6:33 AM | | procedure are in the | | | | PDT | | results section. | + +--------+ + + + | COMPREHENSIVE | Routin | 08/21/2018 | | Results for this | | METABOLIC PANEL | e | 6:33 AM | | procedure are in the | | | | PDT | | results section. | + +--------+ + + + | CT HEAD WO CONTRAST | Routin | 08/20/2018 | | Results for this | | | e | 5:08 AM | | procedure are in the | | | | PDT | | results section. | + +--------+ + + + | XR CHEST 1 VIEW | Routin | 08/20/2018 | | Results for this | | | e | 5:07 AM | | procedure are in the | | | | PDT | | results section. | + +--------+ + + + | XR RIBS BILATERAL 4 | Routin | 08/17/2018 | | Results for this | | + VW W PA CHEST | e | 5:09 AM | | procedure are in the | | | | PDT | | results section. | + +--------+ + + + | CT HEAD WO CONTRAST | Routin | 06/17/2018 | | Results for this | | | e | 5:08 AM | | procedure are in the | | | | PDT | | results section. | + +--------+ + + + | CT ABDOMEN WO | Routin | 06/07/2018 | | Results for this | | CONTRAST | e | 5:06 AM | | procedure are in the | | | | PDT | | results section. | + +--------+ + + + | XR CHEST 1 VIEW | Routin | 06/07/2018 | | Results for this | | | e | 5:06 AM | | procedure are in the | | | | PDT | | results section. | + +--------+ + + + documented in this encounter Results CBC no Differential (08/27/2018 4:33 AM PDT) + + + + + + | Component | Value | Ref Range | Performed | Pathologist | | | | | At | Signature | + + + + + + | WBC | 5.71 | 3.80 - 11.00 | EXTERNAL | | | | | K/uL | LAB | | + + + + + + | Red Blood | 3.38 (L) | 3.70 - 5.10 | EXTERNAL | | | Cells | | M/uL | LAB | | | Counted | | | | | + + + + + + | Hemoglobin | 10.3 (L) | 11.3 - 15.5 | EXTERNAL | | | | | g/dL | LAB | | + + + + + + | Hematocrit, | 30.4 (L) | 34.0 - 46.0 % | EXTERNAL | | | POC | | | LAB | | + + + + + + | MCV | 90.1 | 80.0 - 100.0 fl | EXTERNAL | | | | | | LAB | | + + + + + + | MCH | 30.5 | 27.0 - 34.0 pg | EXTERNAL | | | | | | LAB | | + + + + + + | MCHC | 33.9 | 32.0 - 35.5 | EXTERNAL | | | | | g/dL | LAB | | + + + + + + | RDW-CV | 49.0 | 37 - 53 fl | EXTERNAL | | | | | | LAB | | + + + + + + | Platelet | 169 | 150 - 400 K/uL | EXTERNAL | | | Count | | | LAB | | | Plasma | | | | | + + + + + + | MPV | 9.4Comment: Testing | fl | EXTERNAL | | | | performed at [facility], [address] | LAB | | | | [address], | | | | | | [place] [address] | | | | + + + + + + + + | Specimen | + + | | + + + +---------+ + + | Performing | Address | City/State/Zipcode | Phone Number | | Organization | | | | + +---------+ + + | EXTERNAL LAB | | | | + +---------+ + + Phosphorus (08/27/2018 4:33 AM PDT) + + + + + + | Component | Value | Ref Range | Performed | Pathologist | | | | | At | Signature | + + + + + + | PHOSPHORUS | 3.7Comment: Testing | 2.3 - 4.8 mg/dL | EXTERNAL | | | | performed at [facility], [address] | | LAB | | | | [address] [facility], | | | | | | [place] [address] | | | | + + + + + + + + | Specimen | + + | Blood specimen | | (specimen) | + + + +---------+ + + | Performing | Address | City/State/Zipcode | Phone Number | | Organization | | | | + +---------+ + + | EXTERNAL LAB | | | | + +---------+ + + Magnesium (08/27/2018 4:33 AM PDT) + + + + + + | Component | Value | Ref Range | Performed | Pathologist | | | | | At | Signature | + + + + + + | Magnesium | 2.0Comment: Testing | 1.7 - 2.4 mg/dL | EXTERNAL | | | | performed at [facility], [address] | | LAB | | | | [address], | | | | | | [place] [address] | | | | + + + + + + + + | Specimen | + + | Blood specimen | | (specimen) | + + + +---------+ + + | Performing | Address | City/State/Zipcode | Phone Number | | Organization | | | | + +---------+ + + | EXTERNAL LAB | | | | + +---------+ + + Basic Metabolic Panel (08/27/2018 4:33 AM PDT) + + + + + + | Component | Value | Ref Range | Performed | Pathologist | | | | | At | Signature | + + + + + + | Na | 145 | 135 - 145 | EXTERNAL | | | | | mmol/L | LAB | | + + + + + + | K | 4.3 | 3.5 - 4.9 | EXTERNAL | | | | | mmol/L | LAB | | + + + + + + | Cl | 111 (H) | 99 - 109 mmol/L | EXTERNAL | | | | | | LAB | | + + + + + + | CO2 | 28 | 23 - 32 mmol/L | EXTERNAL | | | | | | LAB | | + + + + + + | Anion Gap | 10 | 5 - 20 mmol/L | EXTERNAL | | | | | | LAB | | + + + + + + | Glucose, | 72 | 65 - 99 mg/dL | EXTERNAL | | | Fasting | | | LAB | | + + + + + + | BUN | 12 | 8 - 25 mg/dL | EXTERNAL | | | | | | LAB | | + + + + + + | Creatinine | 0.7 | 0.50 - 1.00 | EXTERNAL | | | | | mg/dL | LAB | | + + + + + + | BUN/Creatin | 17 | | EXTERNAL | | | ine Ratio | | | LAB | | + + + + + + | Calcium | 8.0 (L) | 8.5 - 10.5 | EXTERNAL | | | | | mg/dL | LAB | | + + + + + + | Estimated | >60Comment: GFR <60: | mL/min/1.73m2 | EXTERNAL | | | GFR | CHRONIC KIDNEY DISEASE, | | LAB | | | | IF FOUND OVER A 3 MONTH | | | | | | PERIOD.GFR <15: KIDNEY | | | | | | FAILURE.FOR | | | | | | AMERICANS, MULTIPLY THE | | | | | | CALCULATED GFR BY | | | | | | 1.210.This eGFR is | | | | | | calculated using the | | | | | | MDRD IDMI traceable | | | | | | equation.Testing | | | | | | performed at [facility], [address] | | | | | | [facility], | | | | | | [place] [address] | | | | + + + + + + + + | Specimen | + + | Blood specimen | | (specimen) | + + + +---------+ + + | Performing | Address | City/State/Zipcode | Phone Number | | Organization | | | | + +---------+ + + | EXTERNAL LAB | | | | + +---------+ + + Potassium (08/26/2018 2:21 PM PDT) + + + + + + | Component | Value | Ref Range | Performed | Pathologist | | | | | At | Signature | + + + + + + | K | 4.4Comment: Testing | 3.5 - 4.9 | EXTERNAL | | | | performed at [facility];[address] | mmol/L | LAB | | | | [address];[place] | | | | | | [address] | | | | + + + + + + + + | Specimen | + + | Blood specimen | | (specimen) | + + + +---------+ + + | Performing | Address | City/State/Zipcode | Phone Number | | Organization | | | | + +---------+ + + | EXTERNAL LAB | | | | + +---------+ + + CBC no Differential (08/26/2018 6:30 AM PDT) + + + + + + | Component | Value | Ref Range | Performed | Pathologist | | | | | At | Signature | + + + + + + | WBC | 5.90 | 3.80 - 11.00 | EXTERNAL | | | | | K/uL | LAB | | + + + + + + | Red Blood | 3.65 (L) | 3.70 - 5.10 | EXTERNAL | | | Cells | | M/uL | LAB | | | Counted | | | | | + + + + + + | Hemoglobin | 11.1 (L) | 11.3 - 15.5 | EXTERNAL | | | | | g/dL | LAB | | + + + + + + | Hematocrit, | 32.8 (L) | 34.0 - 46.0 % | EXTERNAL | | | POC | | | LAB | | + + + + + + | MCV | 89.9 | 80.0 - 100.0 fl | EXTERNAL | | | | | | LAB | | + + + + + + | MCH | 30.3 | 27.0 - 34.0 pg | EXTERNAL | | | | | | LAB | | + + + + + + | MCHC | 33.7 | 32.0 - 35.5 | EXTERNAL | | | | | g/dL | LAB | | + + + + + + | RDW-CV | 49.4 | 37 - 53 fl | EXTERNAL | | | | | | LAB | | + + + + + + | Platelet | 195 | 150 - 400 K/uL | EXTERNAL | | | Count | | | LAB | | | Plasma | | | | | + + + + + + | MPV | 8.9Comment: Testing | fl | EXTERNAL | | | | performed at [facility];[address] | | LAB | | | | [address];[place] | | | | | | [address] | | | | + + + + + + + + | Specimen | + + | | + + + +---------+ + + | Performing | Address | City/State/Zipcode | Phone Number | | Organization | | | | + +---------+ + + | EXTERNAL LAB | | | | + +---------+ + + Phosphorus (08/26/2018 6:30 AM PDT) + + + + + + | Component | Value | Ref Range | Performed | Pathologist | | | | | At | Signature | + + + + + + | PHOSPHORUS | 3.7Comment: Testing | 2.3 - 4.8 mg/dL | EXTERNAL | | | | performed at [facility];[address] | | LAB | | | | [address];[place] | | | | | | [address] | | | | + + + + + + + + | Specimen | + + | Blood specimen | | (specimen) | + + + +---------+ + + | Performing | Address | City/State/Zipcode | Phone Number | | Organization | | | | + +---------+ + + | EXTERNAL LAB | | | | + +---------+ + + Magnesium (08/26/2018 6:30 AM PDT) + + + + + + | Component | Value | Ref Range | Performed | Pathologist | | | | | At | Signature | + + + + + + | Magnesium | 1.8Comment: Testing | 1.7 - 2.4 mg/dL | EXTERNAL | | | | performed at [facility];[address] | | LAB | | | | [address];[place] | | | | | | [address] | | | | + + + + + + + + | Specimen | + + | Blood specimen | | (specimen) | + + + +---------+ + + | Performing | Address | City/State/Zipcode | Phone Number | | Organization | | | | + +---------+ + + | EXTERNAL LAB | | | | + +---------+ + + Comprehensive Metabolic Panel (08/26/2018 6:30 AM PDT) + + + + + + | Component | Value | Ref Range | Performed | Pathologist | | | | | At | Signature | + + + + + + | Na | 147 (H) | 135 - 145 | EXTERNAL | | | | | mmol/L | LAB | | + + + + + + | K | 3.7 | 3.5 - 4.9 | EXTERNAL | | | | | mmol/L | LAB | | + + + + + + | Cl | 113 (H) | 99 - 109 mmol/L | EXTERNAL | | | | | | LAB | | + + + + + + | CO2 | 31 | 23 - 32 mmol/L | EXTERNAL | | | | | | LAB | | + + + + + + | Anion Gap | 7 | 5 - 20 mmol/L | EXTERNAL | | | | | | LAB | | + + + + + + | Glucose, | 84 | 65 - 99 mg/dL | EXTERNAL | | | Fasting | | | LAB | | + + + + + + | BUN | 9 | 8 - 25 mg/dL | EXTERNAL | | | | | | LAB | | + + + + + + | Creatinine | 0.73 | 0.50 - 1.00 | EXTERNAL | | | | | mg/dL | LAB | | + + + + + + | BUN/Creatin | 12 | | EXTERNAL | | | ine Ratio | | | LAB | | + + + + + + | Calcium | 7.5 (L) | 8.5 - 10.5 | EXTERNAL | | | | | mg/dL | LAB | | + + + + + + | Protein, | 5.0 (L) | 6.3 - 8.2 g/dL | EXTERNAL | | | Total | | | LAB | | + + + + + + | Albumin | 3.2 (L) | 3.3 - 4.8 g/dL | EXTERNAL | | | | | | LAB | | + + + + + + | Globulin | 1.8 | 1.3 - 4.9 g/dL | EXTERNAL | | | | | | LAB | | + + + + + + | A/G Ratio | 1.8 | 1.0 - 2.4 | EXTERNAL | | | | | | LAB | | + + + + + + | Bilirubin | 0.2 | 0.1 - 1.5 mg/dL | EXTERNAL | | | Total | | | LAB | | + + + + + + | ALP, | 62 | 35 - 115 U/L | EXTERNAL | | | External | | | LAB | | + + + + + + | AST | 15 | 10 - 45 U/L | EXTERNAL | | | | | | LAB | | + + + + + + | ALT | 8 (L) | 10 - 65 U/L | EXTERNAL | | | | | | LAB | | + + + + + + | Estimated | >60Comment: GFR <60: | mL/min/1.73m2 | EXTERNAL | | | GFR | CHRONIC KIDNEY DISEASE, | | LAB | | | | IF FOUND OVER A 3 MONTH | | | | | | PERIOD.GFR <15: KIDNEY | | | | | | FAILURE.FOR | | | | | | AMERICANS, MULTIPLY THE | | | | | | CALCULATED GFR BY | | | | | | 1.210.This eGFR is | | | | | | calculated using the | | | | | | MDRD IDMI traceable | | | | | | equation.Testing | | | | | | performed at [facility] | | | | | | [facility];[place], [place] | | | | | | [address] | | | | + + + + + + + + | Specimen | + + | Blood specimen | | (specimen) | + + + +---------+ + + | Performing | Address | City/State/Zipcode | Phone Number | | Organization | | | | + +---------+ + + | EXTERNAL LAB | | | | + +---------+ + + Renal Function Panel (08/23/2018 5:36 AM PDT) + + + + + + | Component | Value | Ref Range | Performed | Pathologist | | | | | At | Signature | + + + + + + | Na | 145 | 135 - 145 | EXTERNAL | | | | | mmol/L | LAB | | + + + + + + | K | 4.0 | 3.5 - 4.9 | EXTERNAL | | | | | mmol/L | LAB | | + + + + + + | Cl | 110 (H) | 99 - 109 mmol/L | EXTERNAL | | | | | | LAB | | + + + + + + | CO2 | 29 | 23 - 32 mmol/L | EXTERNAL | | | | | | LAB | | + + + + + + | Anion Gap | 10 | 5 - 20 mmol/L | EXTERNAL | | | | | | LAB | | + + + + + + | Glucose, | 77 | 65 - 99 mg/dL | EXTERNAL | | | Fasting | | | LAB | | + + + + + + | BUN | 7 (L) | 8 - 25 mg/dL | EXTERNAL | | | | | | LAB | | + + + + + + | Creatinine | 0.7 | 0.50 - 1.00 | EXTERNAL | | | | | mg/dL | LAB | | + + + + + + | Calcium | 8.1 (L) | 8.5 - 10.5 | EXTERNAL | | | | | mg/dL | LAB | | + + + + + + | Albumin | 2.7 (L) | 3.3 - 4.8 g/dL | EXTERNAL | | | | | | LAB | | + + + + + + | PHOSPHORUS | 2.9 | 2.3 - 4.8 mg/dL | EXTERNAL | | | | | | LAB | | + + + + + + | Estimated | >60Comment: GFR <60: | mL/min/1.73m2 | EXTERNAL | | | GFR | CHRONIC KIDNEY DISEASE, | | LAB | | | | IF FOUND OVER A 3 MONTH | | | | | | PERIOD.GFR <15: KIDNEY | | | | | | FAILURE.FOR | | | | | | AMERICANS, MULTIPLY THE | | | | | | CALCULATED GFR BY | | | | | | 1.210.This eGFR is | | | | | | calculated using the | | | | | | MDRD IDMS traceable | | | | | | equation.Testing | | | | | | performed at [facility], [address] | | | | | | [facility], | | | | | | [place] [address] | | | | + + + + + + + + | Specimen | + + | Blood specimen | | (specimen) | + + + +---------+ + + | Performing | Address | City/State/Zipcode | Phone Number | | Organization | | | | + +---------+ + + | EXTERNAL LAB | | | | + +---------+ + + Potassium (08/22/2018 7:58 PM PDT) + + + + + + | Component | Value | Ref Range | Performed | Pathologist | | | | | At | Signature | + + + + + + | K | 3.7Comment: Testing | 3.5 - 4.9 | EXTERNAL | | | | performed at [facility];[address] | mmol/L | LAB | | | | [address];[place], [place] | | | | | | [address] | | | | + + + + + + + + | Specimen | + + | Blood specimen | | (specimen) | + + + +---------+ + + | Performing | Address | City/State/Zipcode | Phone Number | | Organization | | | | + +---------+ + + | EXTERNAL LAB | | | | + +---------+ + + ECHO Complete (08/22/2018 8:44 AM PDT) + + | Specimen | + + | | + + + + + | Impressions | Performed At | + + + | 1. The left ventricle is normal in size, mild concentric hypertrophy | | | and normal systolic function EF 55-60%. 2. The right ventricle is | | | normal in size and function. 3. Mild tricuspid regurgitation and no | | | pulmonary hypertension. 4. There is no pericardial effusion. | | + + + + + + | Narrative | Performed At | + + + | Patient Name: GERMAINE BARBOUR Date of : 1945 | | | Performing Physician: Miky | | | Cally | | | | | | INDICATIONS Abnormal EKG CONCLUSIONS | | | 1. The left ventricle is normal in size, mild concentric hypertrophy | | | and normal systolic function EF 55-60%. 2. The right ventricle is | | | normal in size and function. 3. Mild tricuspid regurgitation and no | | | pulmonary hypertension. 4. There is no pericardial effusion. | | | FINDINGS -------- ECG rhythm: Sinus rhythm. ECG rhythm: Resting | | | bradycardia (HR<60bpm). Study: A 2-dimensional transthoracic | | | echocardiogram with m-mode, spectral and color flow Doppler was | | | perfomed. Study: This was a technically adequate study. Left | | | Ventricle: Overall left ventricular systolic function is normal with, | | | an EF between 55 - 60 %. Left Ventricle: The left ventricle cavity | | | size is normal. Left Ventricle: There is mild concentric left | | | ventricular hypertrophy. Left Ventricle: No regional wall motion | | | abnormalities. Left Ventricle: Pseudonormal LV diastolic filling | | | pattern, consistent with elevated LA pressure and moderate dysfunction | | | (Grade II). Right Ventricle: The right ventricle is normal in size | | | and function. Left Atrium: The left atrium is markedly dilated. | | | Right Atrium: The right atrium is moderately enlarged. Aortic Valve: | | | The aortic valve is mildly calcified. Aortic Valve: There is no | | | evidence of aortic regurgitation. Aortic Valve: There is no evidence | | | of aortic stenosis. Mitral Valve: Mild mitral regurgitation is | | | present. Mitral Valve: Mild mitral annular calcification present. | | | Tricuspid Valve: The tricuspid valve appears structurally normal. | | | Tricuspid Valve: Mild tricuspid regurgitation present. Tricuspid | | | Valve: There is no evidence of pulmonary hypertension. Tricuspid | | | Valve: The right ventricular systolic pressure (pulmonary artery | | | systolic pressure), as measured by Doppler, is 30.27mmHg. | | | Pericardium: There is no pericardial effusion. Pericardium: No | | | pleural effusion seen. MEASUREMENTS RA Area: | | | 18.95 cm2 Ao asc: 4.39 cm Ao sinus: 3.04 cm LA Diam: 4.77 | | | cm EDV(Teich): 102.98 ml IVSd: 1.19 cm LVIDd: 4.71 cm | | | LVPWd: 1.22 cm LVOT Diam: 1.96 cm %FS: 35.54 % EF(Teich): | | | 64.97 % ESV(Teich): 36.06 ml IVSs: 1.52 cm LVIDs: 3.03 | | | cm LVPWs: 1.82 cm SV(Teich): 66.91 ml RVIDd: 3.45 cm | | | LAESV(A-L): 117.11 ml LAESV Index (A-L): 66.54 ml/m2 LAAs A2C: | | | 29.59 cm2 LAESV A-L A2C: 105.11 ml LALs A2C: 7.07 cm LAAs | | | A4C: 32.97 cm2 LAESV A-L A4C: 119.49 ml LALs A4C: 7.72 cm | | | TAPSE: 1.59 cm HR: 48.54 BPM AV maxP.21 mmHg AV | | | meanP.37 mmHg AV Vmax: 1.24 m/s AV Vmean: 0.86 m/s AV | | | VTI: 33.73 cm ANATOLIY Vmax: 1.92 cm2 ANATOLIY (VTI): 1.95 cm2 AVAI | | | Vmax: 0.00 cm2/m2 AVAI (VTI): 0.00 cm2/m2 LVCI Dopp: 1.81 | | | l/minm2 LVCO Dopp: 3.19 l/min HR: 48.32 BPM LVOT maxPG: | | | 2.48 mmHg LVOT meanP.58 mmHg LVSI Dopp: 37.56 ml/m2 LVSV | | | Dopp: 66.11 ml LVOT Vmax: 0.78 m/s LVOT Vmean: 0.60 m/s | | | LVOT VTI: 21.71 cm MV A Stewart: 0.34 m/s MV DecT: 569.43 ms | | | MV E Stewart: 0.66 m/s MV E/A Ratio: 1.95 MV A Dur: 88.48 ms | | | MV DecT: 581.48 ms Septal e': 0.04 m/s Septal E/e': 14.72 | | | Lateral e': 0.05 m/s Lateral E/e': 13.17 HR: 47.99 BPM PV | | | maxP.71 mmHg PV meanP.05 mmHg PV Vmax: 0.65 m/s PV | | | Vmean: 0.48 m/s PV VTI: 17.71 cm PV maxP.70 mmHg PV | | | Vmax: 0.96 m/s RAP: 8 mmHg RV S': 0.07 m/s RVSP: 30.27 | | | mmHg TR maxP.27 mmHg TR Vmax: 2.35 m/s Club Attendant: | | | Authenticated by: Miky Alamo Report Date/Time: 08-22-2018 | | | 14:38:8 | | + + + + + | Procedure Note | + + | Victor Hugo, Rad Conversion - 11/10/2018 7:55 PM PDT Patient Name: ANTONIETTA BLANKENSHIP, | | SALLYDate of : 1945 Performing Physician: Miky | | Cally INDICATIONS------ | | -----Abnormal EKG CONCLUSIONS 1. The left ventricle is normal in size, mild | | concentric hypertrophy and normal systolic function EF 55-60%.2. The right ventricle is | | normal in size and function.3. Mild tricuspid regurgitation and no pulmonary | | hypertension.4. There is no pericardial effusion. FINDINGS--------ECG rhythm: Sinus | | rhythm.ECG rhythm: Resting bradycardia (HR<60bpm).Study: A 2-dimensional transthoracic | | echocardiogram with m-mode, spectral and color flow Doppler was perfomed.Study: This was | | a technically adequate study.Left Ventricle: Overall left ventricular systolic function | | is normal with, an EF between 55 - 60 %.Left Ventricle: The left ventricle cavity size | | is normal.Left Ventricle: There is mild concentric left ventricular hypertrophy.Left | | Ventricle: No regional wall motion abnormalities.Left Ventricle: Pseudonormal LV | | diastolic filling pattern, consistent with elevated LA pressure and moderate dysfunction | | (Grade II).Right Ventricle: The right ventricle is normal in size and function.Left | | Atrium: The left atrium is markedly dilated.Right Atrium: The right atrium is moderately | | enlarged.Aortic Valve: The aortic valve is mildly calcified.Aortic Valve: There is no | | evidence of aortic regurgitation.Aortic Valve: There is no evidence of aortic | | stenosis.Mitral Valve: Mild mitral regurgitation is present.Mitral Valve: Mild mitral | | annular calcification present.Tricuspid Valve: The tricuspid valve appears structurally | | normal.Tricuspid Valve: Mild tricuspid regurgitation present.Tricuspid Valve: There is | | no evidence of pulmonary hypertension.Tricuspid Valve: The right ventricular systolic | | pressure (pulmonary artery systolic pressure), as measured by Doppler, is | | 30.27mmHg.Pericardium: There is no pericardial effusion.Pericardium: No pleural effusion | | seen. MEASUREMENTS RA Area: 18.95 cm2Ao asc: 4.39 cmAo sinus: 3.04 | | cmLA Diam: 4.77 cmEDV(Teich): 102.98 mlIVSd: 1.19 cmLVIDd: 4.71 cmLVPWd: 1.22 | | cmLVOT Diam: 1.96 cm%FS: 35.54 %EF(Teich): 64.97 %ESV(Teich): 36.06 mlIVSs: | | 1.52 cmLVIDs: 3.03 cmLVPWs: 1.82 cmSV(Teich): 66.91 mlRVIDd: 3.45 cmLAESV(A-L): | | 117.11 mlLAESV Index (A-L): 66.54 ml/m2LAAs A2C: 29.59 [id number] A-L A2C: 105.11 | | mlLALs A2C: 7.07 cmLAAs A4C: 32.97 [id number] A-L A4C: 119.49 mlLALs A4C: 7.72 | | cmTAPSE: 1.59 cmHR: 48.54 BPMAV maxP.21 mmHgAV meanP.37 mmHgAV Vmax: | | 1.24 m/[place] Vmean: 0.86 m/[place] VTI: 33.73 cmAVA Vmax: 1.92 cm2AVA (VTI): 1.95 | | [id number] Vmax: 0.00 cm2/m2AVAI (VTI): 0.00 cm2/m2LVCI Dopp: 1.81 l/phif7LUGS Dopp: | | 3.19 l/minHR: 48.32 BPMLVOT maxP.48 mmHgLVOT meanP.58 mmHgLVSI Dopp: | | 37.56 ml/m2LVSV Dopp: 66.11 mlLVOT Vmax: 0.78 m/sLVOT Vmean: 0.60 m/sLVOT VTI: | | 21.71 cmMV A Stewart: 0.34 m/sMV DecT: 569.43 msMV E Stewart: 0.66 m/sMV E/A Ratio: | | 1.95MV A Dur: 88.48 msMV DecT: 581.48 msSeptal e': 0.04 m/sSeptal E/e': | | 14.72Lateral e': 0.05 m/sLateral E/e': 13.17HR: 47.99 BPMPV maxP.71 mmHgPV | | meanP.05 mmHgPV Vmax: 0.65 m/sPV Vmean: 0.48 m/sPV VTI: 17.71 cmPV maxPG: | | 3.70 mmHgPV Vmax: 0.96 m/sRAP: 8 mmHgRV S': 0.07 m/sRVSP: 30.27 mmHgTR maxPG: | | 22.27 mmHgTR Vmax: 2.35 m/s Club Attendant: JRAuthenticated by: Miky Gill | | Date/Time: 08-22-2018 14:38:8 IMPRESSION: 1. The left ventricle is normal in size, mild | | concentric hypertrophy and normal systolic function EF 55-60%.2. The right ventricle is | | normal in size and function.3. Mild tricuspid regurgitation and no pulmonary | | hypertension.4. There is no pericardial effusion. | |MEASUREMENTS | | | |RA Area: 18.95 cm2 | |Ao asc: 4.39 cm | |Ao sinus: 3.04 cm | |LA Diam: 4.77 cm | |EDV(Teich): 102.98 ml | |IVSd: 1.19 cm | |LVIDd: 4.71 cm | |LVPWd: 1.22 cm | |LVOT Diam: 1.96 cm | |%FS: 35.54 % | |EF(Teich): 64.97 % | |ESV(Teich): 36.06 ml | |IVSs: 1.52 cm | |LVIDs: 3.03 cm | |LVPWs: 1.82 cm | |SV(Teich): 66.91 ml | |RVIDd: 3.45 cm | |LAESV(A-L): 117.11 ml | |LAESV Index (A-L): 66.54 ml/m2 | |LAAs A2C: 29.59 cm2 | |LAESV A-L A2C: 105.11 ml | |LALs A2C: 7.07 cm | |LAAs A4C: 32.97 cm2 | |LAESV A-L A4C: 119.49 ml | |LALs A4C: 7.72 cm | |TAPSE: 1.59 cm | |HR: 48.54 BPM | |AV maxP.21 mmHg | |AV meanP.37 mmHg | |AV Vmax: 1.24 m/s | |AV Vmean: 0.86 m/s | |AV VTI: 33.73 cm | |ANATOLIY Vmax: 1.92 cm2 | |ANATOLIY (VTI): 1.95 cm2 | |AVAI Vmax: 0.00 cm2/m2 | |AVAI (VTI): 0.00 cm2/m2 | |LVCI Dopp: 1.81 l/minm2 | |LVCO Dopp: 3.19 l/min | |HR: 48.32 BPM | |LVOT maxP.48 mmHg | |LVOT meanP.58 mmHg | |LVSI Dopp: 37.56 ml/m2 | |LVSV Dopp: 66.11 ml | |LVOT Vmax: 0.78 m/s | |LVOT Vmean: 0.60 m/s | |LVOT VTI: 21.71 cm | |MV A Stewart: 0.34 m/s | |MV DecT: 569.43 ms | |MV E Stewart: 0.66 m/s | |MV E/A Ratio: 1.95 | |MV A Dur: 88.48 ms | |MV DecT: 581.48 ms | |Septal e': 0.04 m/s | |Septal E/e': 14.72 | |Lateral e': 0.05 m/s | |Lateral E/e': 13.17 | |HR: 47.99 BPM | |PV maxP.71 mmHg | |PV meanP.05 mmHg | |PV Vmax: 0.65 m/s | |PV Vmean: 0.48 m/s | |PV VTI: 17.71 cm | |PV maxP.70 mmHg | |PV Vmax: 0.96 m/s | |RAP: 8 mmHg | |RV S': 0.07 m/s | |RVSP: 30.27 mmHg | |TR maxP.27 mmHg | |TR Vmax: 2.35 m/s | | | |Club Attendant: | |Authenticated by: Miky Alamo | |Report Date/Time: 08-22-2018 14:38:8 | | | |IMPRESSION: | |1. The left ventricle is normal in size, mild concentric hypertrophy and normal systolic fu nction EF 55-60%. | |2. The right ventricle is normal in size and function. | |3. Mild tricuspid regurgitation and no pulmonary hypertension. | |4. There is no pericardial effusion. | + + ECG 12 lead (08/22/2018 7:29 AM PDT) + + + + + + | Component | Value | Ref Range | Performed | Pathologist | | | | | At | Signature | + + + + + + | DIAGNOSIS: | Suspect arm lead | | EXTERNAL | | | | reversal, interpretation | | LAB | | | | assumes no | | | | | | reversalUnusual P axis, | | | | | | possible ectopic atrial | | | | | | bradycardiaRight axis | | | | | | deviationSeptal infarct | | | | | | , age | | | | | | undeterminedAbnormal ECG | | | | | | Confirmed by ASA WARE, | | | | | | DEBORAH ([id number]) on 08/23/2018 | | | | | | 11:00:41 AM | | | | + + + + + + + + | Specimen | + + | | + + + + + | Narrative | Performed At | + + + | Historically converted procedure from [facility] Epic environment | EXTERNAL LAB | + + + + +---------+ + + | Performing | Address | City/State/Zipcode | Phone Number | | Organization | | | | + +---------+ + + | EXTERNAL LAB | | | | + +---------+ + + External Lab: CBC (08/22/2018 6:34 AM PDT) + + + + + + | Component | Value | Ref Range | Performed | Pathologist | | | | | At | Signature | + + + + + + | WBC | 5.78 | 3.80 - 11.00 | EXTERNAL | | | | | K/uL | LAB | | + + + + + + | Red Blood | 3.71 | 3.70 - 5.10 | EXTERNAL | | | Cells | | M/uL | LAB | | | Counted | | | | | + + + + + + | Hemoglobin | 11.0 (L) | 11.3 - 15.5 | EXTERNAL | | | | | g/dL | LAB | | + + + + + + | Hematocrit, | 32.5 (L) | 34.0 - 46.0 % | EXTERNAL | | | POC | | | LAB | | + + + + + + | MCV | 87.7 | 80.0 - 100.0 fl | EXTERNAL | | | | | | LAB | | + + + + + + | MCH | 29.6 | 27.0 - 34.0 pg | EXTERNAL | | | | | | LAB | | + + + + + + | MCHC | 33.7 | 32.0 - 35.5 | EXTERNAL | | | | | g/dL | LAB | | + + + + + + | RDW-CV | 49.4 | 37 - 53 fl | EXTERNAL | | | | | | LAB | | + + + + + + | Platelet | 198 | 150 - 400 K/uL | EXTERNAL | | | Count | | | LAB | | | Plasma | | | | | + + + + + + | MPV | 8.9 | fl | EXTERNAL | | | | | | LAB | | + + + + + + | Differentia | AUTOMATED | | EXTERNAL | | | l Type | | | LAB | | + + + + + + | % Segmented | 54.33 | % | EXTERNAL | | | | | | LAB | | | Neutrophils | | | | | + + + + + + | % | 36.29 | % | EXTERNAL | | | Lymphocytes | | | LAB | | + + + + + + | % Monocytes | 6.07 | % | EXTERNAL | | | | | | LAB | | + + + + + + | % | 1.82 | % | EXTERNAL | | | Eosinophils | | | LAB | | + + + + + + | % Basophils | 1.49 | % | EXTERNAL | | | | | | LAB | | + + + + + + | Absolute | 3.14 | 1.90 - 7.40 | EXTERNAL | | | Segmented | | K/uL | LAB | | | Neutrophils | | | | | + + + + + + | Absolute | 2.10 | 1.00 - 3.90 | EXTERNAL | | | Lymphocytes | | K/uL | LAB | | + + + + + + | Absolute | 0.35 | 0.00 - 0.80 | EXTERNAL | | | Monocytes | | K/uL | LAB | | + + + + + + | Absolute | 0.11 | 0.00 - 0.50 | EXTERNAL | | | Eosinophils | | K/uL | LAB | | + + + + + + | Absolute | 0.09Comment: Testing | 0.00 - 0.10 | EXTERNAL | | | Basophils | performed at [facility];[address] | [address] | LAB | | | | [address];[place] | | | | | | [address] | | | | + + + + + + + + | Specimen | + + | Blood specimen | | (specimen) | + + + +---------+ + + | Performing | Address | City/State/Zipcode | Phone Number | | Organization | | | | + +---------+ + + | EXTERNAL LAB | | | | + +---------+ + + Phosphorus (08/22/2018 6:34 AM PDT) + + + + + + | Component | Value | Ref Range | Performed | Pathologist | | | | | At | Signature | + + + + + + | PHOSPHORUS | 3.0Comment: Testing | 2.3 - 4.8 mg/dL | EXTERNAL | | | | performed at [facility];[address] | | LAB | | | | [address];[place], [place] | | | | | | [address] | | | | + + + + + + + + | Specimen | + + | Blood specimen | | (specimen) | + + + +---------+ + + | Performing | Address | City/State/Zipcode | Phone Number | | Organization | | | | + +---------+ + + | EXTERNAL LAB | | | | + +---------+ + + Magnesium (08/22/2018 6:34 AM PDT) + + + + + + | Component | Value | Ref Range | Performed | Pathologist | | | | | At | Signature | + + + + + + | Magnesium | 1.6 (L)Comment: Testing | 1.7 - 2.4 mg/dL | EXTERNAL | | | | performed at [facility];[address] | | LAB | | | | [address];[place] | | | | | | [address] | | | | + + + + + + + + | Specimen | + + | Blood specimen | | (specimen) | + + + +---------+ + + | Performing | Address | City/State/Zipcode | Phone Number | | Organization | | | | + +---------+ + + | EXTERNAL LAB | | | | + +---------+ + + Basic Metabolic Panel (08/22/2018 6:34 AM PDT) + + + + + + | Component | Value | Ref Range | Performed | Pathologist | | | | | At | Signature | + + + + + + | Na | 148 (H) | 135 - 145 | EXTERNAL | | | | | mmol/L | LAB | | + + + + + + | K | 3.2 (L) | 3.5 - 4.9 | EXTERNAL | | | | | mmol/L | LAB | | + + + + + + | Cl | 111 (H) | 99 - 109 mmol/L | EXTERNAL | | | | | | LAB | | + + + + + + | CO2 | 31 | 23 - 32 mmol/L | EXTERNAL | | | | | | LAB | | + + + + + + | Anion Gap | 9 | 5 - 20 mmol/L | EXTERNAL | | | | | | LAB | | + + + + + + | Glucose, | 78 | 65 - 99 mg/dL | EXTERNAL | | | Fasting | | | LAB | | + + + + + + | BUN | 6 (L) | 8 - 25 mg/dL | EXTERNAL | | | | | | LAB | | + + + + + + | Creatinine | 0.59 | 0.50 - 1.00 | EXTERNAL | | | | | mg/dL | LAB | | + + + + + + | BUN/Creatin | 10 | | EXTERNAL | | | ine Ratio | | | LAB | | + + + + + + | Calcium | 7.0 (L) | 8.5 - 10.5 | EXTERNAL | | | | | mg/dL | LAB | | + + + + + + | Estimated | >60Comment: GFR <60: | mL/min/1.73m2 | EXTERNAL | | | GFR | CHRONIC KIDNEY DISEASE, | | LAB | | | | IF FOUND OVER A 3 MONTH | | | | | | PERIOD.GFR <15: KIDNEY | | | | | | FAILURE.FOR | | | | | | AMERICANS, MULTIPLY THE | | | | | | CALCULATED GFR BY | | | | | | 1.210.This eGFR is | | | | | | calculated using the | | | | | | MDRD IDMS traceable | | | | | | equation.Testing | | | | | | performed at [facility] | | | | | | [facility];[place], [place] | | | | | | [address] | | | | + + + + + + + + | Specimen | + + | Blood specimen | | (specimen) | + + + +---------+ + + | Performing | Address | City/State/Zipcode | Phone Number | | Organization | | | | + +---------+ + + | EXTERNAL LAB | | | | + +---------+ + + XR Hip Right 2-3 Views (08/21/2018 9:49 PM PDT) + + | Specimen | + + | | + + + + + | Impressions | Performed At | + + + | Negative hip. Signed by: Chey Cruz, Jonathon Sign Date/Time: | | | 08/21/2018 10:25 PM | | + + + + + + | Narrative | Performed At | + + + | RIGHT HIP TWO OR THREE VIEWS CLINICAL INFORMATION: Right | | | Thigh/Hip pain after injury COMPARISON: None FINDINGS: No fracture | | | or dislocation. No significant arthropathy or soft tissue | | | abnormalities. Normal bone mineralization. | | + + + + + | Procedure Note | + + | Jaiver Gay - 11/10/2018 7:55 PM PDT RIGHT HIP TWO OR THREE VIEWS | | CLINICAL INFORMATION: | | Right Thigh/Hip pain after injury | | COMPARISON: | | None | | FINDINGS: | | No fracture or dislocation. No significant arthropathy or soft tissue | | abnormalities. Normal bone mineralization. | | IMPRESSION: | | Negative hip. | | Signed by: Chey Cruz Dwane | | Sign Date/Time: 08/21/2018 10:25 PM | + + XR Ribs Right w PA Chest (08/21/2018 9:49 PM PDT) + + | Specimen | + + | | + + + + + | Impressions | Performed At | + + + | No evidence of displaced right rib fracture Cardiomegaly and | | | evidence of prior CABG but no overt failure No acute infiltrate | | | Signed by: Chey Cruz, Jonathon Sign Date/Time: 08/21/2018 10:28 PM | | + + + + + + | Narrative | Performed At | + + + | RIGHT RIBS AND PA CHEST CLINICAL INFORMATION: Right rib pain | | | COMPARISON: XR RIBS BILATERAL W PA CHEST (08/17/2018); FINDINGS: | | | Postoperative changes of prior sternotomy and CABG. Mild | | | cardiomegaly. Mild pulmonary vascular prominence but no overt failure | | | or interstitial edema. The lungs are expanded free of infiltrate, | | | effusion, pneumothorax. No obvious hilar or mediastinal adenopathy. | | | No displaced right rib fractures. | | + + + + + | Procedure Note | + + | Victor Hugo, Rad Conversion - 11/10/2018 7:55 PM PDT RIGHT RIBS AND PA CHEST | | CLINICAL INFORMATION: | | Right rib pain | | COMPARISON: | | XR RIBS BILATERAL W PA CHEST (08/17/2018); | | FINDINGS: | | Postoperative changes of prior sternotomy and CABG. Mild cardiomegaly. | | Mild pulmonary vascular prominence but no overt failure or interstitial | | edema. The lungs are expanded free of infiltrate, effusion, | | pneumothorax. No obvious hilar or mediastinal adenopathy. | | No displaced right rib fractures. | | IMPRESSION: | | No evidence of displaced right rib fracture | | Cardiomegaly and evidence of prior CABG but no overt failure | | No acute infiltrate | | Signed by: Chey Cruz Dwane | | Sign Date/Time: 08/21/2018 10:28 PM | + + CT Head Cervical Spine wo Contrast (08/21/2018 5:07 PM PDT) + + | Specimen | + + | | + + + + + | Impressions | Performed At | + + + | 1. Degrading of the images due to excessive motion. 2. No evidence | | | of acute intracranial injury. 3. Chronic lacunar infarct of the left | | | basal ganglia and internal capsule. 4. No evidence of cervical spine | | | fracture. 5. Chronic ununited type 2 odontoid fracture. Dens | | | appears partially fused to the anterior arch C1. 6. Discogenic | | | spondylosis, most advanced at C5-6. Signed by: Chey Dorantes David | | | Sign Date/Time: 08/21/2018 5:52 PM | | + + + + + + | Narrative | Performed At | + + + | CT HEAD WITHOUT CONTRAST; CT CERVICAL SPINE WITHOUT CONTRAST | | | CLINICAL INFORMATION: Head pain after fall. Patient found down | | | next to her bed. COMPARISON: CT HEAD WO CONTRAST (08/20/2018); | | | PROCEDURE: CT Head: Axial non-contrast images were obtained through | | | the head. CT Cervical Spine: Thin section noncontrast axial images | | | were obtained through the cervical spine. Multiplanar reformations | | | were obtained from the acquisition data. At least one of the | | | following CT dose optimization techniques were used: Automated | | | exposure control; Adjustment of mA and/or kV according to patient | | | size; Use of iterative reconstruction technique. FINDINGS: There | | | degrading of the images due to excessive motion. CT Head: Brain: No | | | intracranial hemorrhage, midline shift or pathologic mass effect. No | | | cerebral edema, mass lesion, or evidence of infarct. There is chronic | | | lacunar infarct of the left basal ganglia and internal capsule. | | | There is scattered hypoattenuation the cerebral white matter | | | consistent with chronic small vessel ischemic changes. Ventricles | | | and extra-axial fluid spaces: Normal. Paranasal sinuses and mastoid | | | air cells: Normal. Calvarium and extracranial soft tissue: Normal. | | | Orbits: Imaged portions of the orbits are normal. CT Cervical Spine: | | | Alignment: Normal. Vertebrae: There is a chronic ununited type 2 | | | odontoid fracture. The odontoid appears partially fused with the | | | anterior arch of C1. This is unchanged in appearance since previous | | | studies. There is no evidence of an acute fracture. Cervical disc | | | levels: C3-4 there is mild posterior osteophytic spurring and | | | hypertrophic uncovertebral degenerative changes. There mild | | | hypertrophic facet osteoarthrosis. C5-6 there moderate to severe disc | | | space narrowing. There posterior disc osteophyte complex. There | | | bilateral hypertrophic uncovertebral degenerative changes. There is | | | no significant neural foraminal stenosis. C6-7 disc space is mildly | | | narrowed. The spinal canal is patent. Facets and posterior spinal | | | elements: There is mild multilevel hypertrophic facet osteoarthrosis. | | | There no evidence of fracture or subluxation. Paraspinal soft | | | tissues: No evidence of acute paraspinal soft tissue abnormality. | | | The thyroid gland demonstrates enlargement of the right lobe with | | | multiple nodules which does not appear substantially changed since the | | | previous study. | | + + + + + | Procedure Note | + + | Victor Hugo, Rad Conversion - 11/10/2018 7:[address] HEAD WITHOUT CONTRAST; CT CERVICAL | | SPINE WITHOUT CONTRASTCLINICAL INFORMATION:Head pain after fall. Patient found down | | next to her bed.COMPARISON:CT HEAD WO CONTRAST (08/20/2018);PROCEDURE:CT Head: Axial | | non-contrast images were obtained through the head.CT Cervical Spine: Thin section | | noncontrast axial images were obtainedthrough the cervical spine.Multiplanar | | reformations were obtained from the acquisition data.At least one of the following CT | | dose optimization techniques wereused: Automated exposure control; Adjustment of mA | | and/or kV accordingto patient size; Use of iterative reconstruction | | technique.FINDINGS:There degrading of the images due to excessive motion.CT Head:Brain: | | No intracranial hemorrhage, midline shift or pathologic masseffect. No cerebral edema, | | mass lesion, or evidence of infarct.There is chronic lacunar infarct of the left basal | | ganglia and internalcapsule.There is scattered hypoattenuation the cerebral white matter | | consistentwith chronic small vessel ischemic changes.Ventricles and extra-axial fluid | | spaces: Normal.Paranasal sinuses and mastoid air cells: Normal.Calvarium and | | extracranial soft tissue: Normal.Orbits: Imaged portions of the orbits are normal.CT | | Cervical Spine:Alignment: Normal.Vertebrae: There is a chronic ununited type 2 odontoid | | fracture. Theodontoid appears partially fused with the anterior arch of C1. This | | isunchanged in appearance since previous studies.There is no evidence of an acute | | fracture.Cervical disc levels: C3-4 there is mild posterior osteophytic spurringand | | hypertrophic uncovertebral degenerative changes. There mildhypertrophic facet | | osteoarthrosis.C5-6 there moderate to severe disc space narrowing. There posteriordisc | | osteophyte complex. There bilateral hypertrophic uncovertebraldegenerative changes. | | There is no significant neural foraminalstenosis.C6-7 disc space is mildly narrowed.The | | spinal canal is patent.Facets and posterior spinal elements: There is mild | | multilevelhypertrophic facet osteoarthrosis. There no evidence of fracture | | orsubluxation.Paraspinal soft tissues: No evidence of acute paraspinal soft | | tissueabnormality.The thyroid gland demonstrates enlargement of the right lobe | | withmultiple nodules which does not appear substantially changed since theprevious | | study.IMPRESSION: 1. Degrading of the images due to excessive motion.2. No evidence of | | acute intracranial injury.3. Chronic lacunar infarct of the left basal ganglia and | | internalcapsule.4. No evidence of cervical spine fracture.5. Chronic ununited type 2 | | odontoid fracture. Dens appears partiallyfused to the anterior arch C1.6. Discogenic | | spondylosis, most advanced at C5-6.Signed by: Cehy Dorantes DavidSign Date/Time: | | 08/21/2018 5:52 PM | |hypertrophic facet osteoarthrosis. | |C5-6 there moderate to severe disc space narrowing. There posterior | |disc osteophyte complex. There bilateral hypertrophic uncovertebral | |degenerative changes. There is no significant neural foraminal | |stenosis. | |C6-7 disc space is mildly narrowed. | |The spinal canal is patent. | |Facets and posterior spinal elements: There is mild multilevel | |hypertrophic facet osteoarthrosis. There no evidence of fracture or | |subluxation. | |Paraspinal soft tissues: No evidence of acute paraspinal soft tissue | |abnormality. | |The thyroid gland demonstrates enlargement of the right lobe with | |multiple nodules which does not appear substantially changed since the | |previous study. | |IMPRESSION: | |1. Degrading of the images due to excessive motion. | |2. No evidence of acute intracranial injury. | |3. Chronic lacunar infarct of the left basal ganglia and internal | |capsule. | |4. No evidence of cervical spine fracture. | |5. Chronic ununited type 2 odontoid fracture. Dens appears partially | |fused to the anterior arch C1. | |6. Discogenic spondylosis, most advanced at C5-6. | |Signed by: Chey Dorantes David | |Sign Date/Time: 08/21/2018 5:52 PM | + + Potassium (08/21/2018 2:42 PM PDT) + + + + + + | Component | Value | Ref Range | Performed | Pathologist | | | | | At | Signature | + + + + + + | K | 4.0Comment: Testing | 3.5 - 4.9 | EXTERNAL | | | | performed at [facility];[address] | mmol/L | LAB | | | | [address];[place], [place] | | | | | | [address] | | | | + + + + + + + + | Specimen | + + | Blood specimen | | (specimen) | + + + +---------+ + + | Performing | Address | City/State/Zipcode | Phone Number | | Organization | | | | + +---------+ + + | EXTERNAL LAB | | | | + +---------+ + + External Lab: CBC (08/21/2018 6:33 AM PDT) + + + + + + | Component | Value | Ref Range | Performed | Pathologist | | | | | At | Signature | + + + + + + | WBC | 9.41 | 3.80 - 11.00 | EXTERNAL | | | | | K/uL | LAB | | + + + + + + | Red Blood | 4.21 | 3.70 - 5.10 | EXTERNAL | | | Cells | | M/uL | LAB | | | Counted | | | | | + + + + + + | Hemoglobin | 12.4 | 11.3 - 15.5 | EXTERNAL | | | | | g/dL | LAB | | + + + + + + | Hematocrit, | 37.2 | 34.0 - 46.0 % | EXTERNAL | | | POC | | | LAB | | + + + + + + | MCV | 88.3 | 80.0 - 100.0 fl | EXTERNAL | | | | | | LAB | | + + + + + + | MCH | 29.3 | 27.0 - 34.0 pg | EXTERNAL | | | | | | LAB | | + + + + + + | MCHC | 33.2 | 32.0 - 35.5 | EXTERNAL | | | | | g/dL | LAB | | + + + + + + | RDW-CV | 49.9 | 37 - 53 fl | EXTERNAL | | | | | | LAB | | + + + + + + | Platelet | 157Comment: | 150 - 400 K/uL | EXTERNAL | | | Count | | | LAB | | | Plasma | | | | | + + + + + + | MPV | 8.6Comment: | fl | EXTERNAL | | | | | | LAB | | + + + + + + | Differentia | AUTOMATED | | EXTERNAL | | | l Type | | | LAB | | + + + + + + | % Segmented | 77.05 | % | EXTERNAL | | | | | | LAB | | | Neutrophils | | | | | + + + + + + | % | 16.19 | % | EXTERNAL | | | Lymphocytes | | | LAB | | + + + + + + | % Monocytes | 5.56 | % | EXTERNAL | | | | | | LAB | | + + + + + + | % | 0.44 | % | EXTERNAL | | | Eosinophils | | | LAB | | + + + + + + | % Basophils | 0.76 | % | EXTERNAL | | | | | | LAB | | + + + + + + | Absolute | 7.25 | 1.90 - 7.40 | EXTERNAL | | | Segmented | | K/uL | LAB | | | Neutrophils | | | | | + + + + + + | Absolute | 1.52 | 1.00 - 3.90 | EXTERNAL | | | Lymphocytes | | K/uL | LAB | | + + + + + + | Absolute | 0.52 | 0.00 - 0.80 | EXTERNAL | | | Monocytes | | K/uL | LAB | | + + + + + + | Absolute | 0.04 | 0.00 - 0.50 | EXTERNAL | | | Eosinophils | | K/uL | LAB | | + + + + + + | Absolute | 0.07 | 0.00 - 0.10 | EXTERNAL | | | Basophils | | K/uL | LAB | | + + + + + + | RBC | RBC AND PLT MORPHOLOGY | | EXTERNAL | | | Morphology | APPEAR NORMAL | | LAB | | + + + + + + | Platelet | ADEQUATEComment: Testing | | EXTERNAL | | | Estimate | performed at [facility];[address] | | LAB | | | | [address];[place] | | | | | | [address] | | | | + + + + + + + + | Specimen | + + | Blood specimen | | (specimen) | + + + +---------+ + + | Performing | Address | City/State/Zipcode | Phone Number | | Organization | | | | + +---------+ + + | EXTERNAL LAB | | | | + +---------+ + + Lactic Acid (08/21/2018 6:33 AM PDT) + + + + + + | Component | Value | Ref Range | Performed | Pathologist | | | | | At | Signature | + + + + + + | Lactate | 1.5Comment: Testing | 0.4 - 2.0 | EXTERNAL | | | | performed at [facility];[address] | mmol/L | LAB | | | | [address] Walker;[place], [place] | | | | | | [address] | | | | + + + + + + + + | Specimen | + + | Blood specimen | | (specimen) | + + + +---------+ + + | Performing | Address | City/State/Zipcode | Phone Number | | Organization | | | | + +---------+ + + | EXTERNAL LAB | | | | + +---------+ + + Comprehensive Metabolic Panel (08/21/2018 6:33 AM PDT) + + + + + + | Component | Value | Ref Range | Performed | Pathologist | | | | | At | Signature | + + + + + + | Na | 148 (H) | 135 - 145 | EXTERNAL | | | | | mmol/L | LAB | | + + + + + + | K | 3.2 (L) | 3.5 - 4.9 | EXTERNAL | | | | | mmol/L | LAB | | + + + + + + | Cl | 112 (H) | 99 - 109 mmol/L | EXTERNAL | | | | | | LAB | | + + + + + + | CO2 | 30 | 23 - 32 mmol/L | EXTERNAL | | | | | | LAB | | + + + + + + | Anion Gap | 9 | 5 - 20 mmol/L | EXTERNAL | | | | | | LAB | | + + + + + + | Glucose, | 96 | 65 - 99 mg/dL | EXTERNAL | | | Fasting | | | LAB | | + + + + + + | BUN | 8 | 8 - 25 mg/dL | EXTERNAL | | | | | | LAB | | + + + + + + | Creatinine | 0.57 | 0.50 - 1.00 | EXTERNAL | | | | | mg/dL | LAB | | + + + + + + | BUN/Creatin | 14 | | EXTERNAL | | | ine Ratio | | | LAB | | + + + + + + | Calcium | 6.9 (L) | 8.5 - 10.5 | EXTERNAL | | | | | mg/dL | LAB | | + + + + + + | Protein, | 5.3 (L) | 6.3 - 8.2 g/dL | EXTERNAL | | | Total | | | LAB | | + + + + + + | Albumin | 3.4 | 3.3 - 4.8 g/dL | EXTERNAL | | | | | | LAB | | + + + + + + | Globulin | 1.9 | 1.3 - 4.9 g/dL | EXTERNAL | | | | | | LAB | | + + + + + + | A/G Ratio | 1.8 | 1.0 - 2.4 | EXTERNAL | | | | | | LAB | | + + + + + + | Bilirubin | 0.4 | 0.1 - 1.5 mg/dL | EXTERNAL | | | Total | | | LAB | | + + + + + + | ALP, | 69 | 35 - 115 U/L | EXTERNAL | | | External | | | LAB | | + + + + + + | AST | 29 | 10 - 45 U/L | EXTERNAL | | | | | | LAB | | + + + + + + | ALT | 15 | 10 - 65 U/L | EXTERNAL | | | | | | LAB | | + + + + + + | Estimated | >60Comment: GFR <60: | mL/min/1.73m2 | EXTERNAL | | | GFR | CHRONIC KIDNEY DISEASE, | | LAB | | | | IF FOUND OVER A 3 MONTH | | | | | | PERIOD.GFR <15: KIDNEY | | | | | | FAILURE.FOR | | | | | | AMERICANS, MULTIPLY THE | | | | | | CALCULATED GFR BY | | | | | | 1.210.This eGFR is | | | | | | calculated using the | | | | | | [facility] traceable | | | | | | equation.Testing | | | | | | performed at [facility];[address] | | | | | | [facility];[place], [place] | | | | | | [address] | | | | + + + + + + + + | Specimen | + + | Blood specimen | | (specimen) | + + + +---------+ + + | Performing | Address | City/State/Zipcode | Phone Number | | Organization | | | | + +---------+ + + | EXTERNAL LAB | | | | + +---------+ + + CT Head wo Contrast (08/20/2018 5:08 AM PDT) + + | Specimen | + + | | + + + + + | Narrative | Performed At | + + + | This is a non-reportable procedure without a radiologist report and | | | is used for image storage only | | + + + + + | Procedure Note | + + | Javier Gay Conversion - 11/10/2018 7:55 PM PDT This is a non-reportable procedure | | without a radiologist report and isused for image storage only | + + XR Chest 1 Vw (08/20/2018 5:07 AM PDT) + + | Specimen | + + | | + + + + + | Narrative | Performed At | + + + | This is a non-reportable procedure without a radiologist report and | | | is used for image storage only | | + + + + + | Procedure Note | + + | Javier Gay - 11/10/2018 7:55 PM PDT This is a non-reportable procedure | | without a radiologist report and isused for image storage only | + + XR Ribs Bilateral 4 + Vw w PA Chest (08/17/2018 5:09 AM PDT) + + | Specimen | + + | | + + + + + | Narrative | Performed At | + + + | This is a non-reportable procedure without a radiologist report and | | | is used for image storage only | | + + + + + | Procedure Note | + + | Javier Gay - 11/10/2018 7:55 PM PDT This is a non-reportable procedure | | without a radiologist report and isused for image storage only | + + CT Head wo Contrast (06/17/2018 5:08 AM PDT) + + | Specimen | + + | | + + + + + | Narrative | Performed At | + + + | This is a non-reportable procedure without a radiologist report and | | | is used for image storage only | | + + + + + | Procedure Note | + + | Victor Hugo, Rad Conversion - 11/10/2018 7:55 PM PDT This is a non-reportable procedure | | without a radiologist report and isused for image storage only | + + CT Abdomen wo Contrast (06/07/2018 5:06 AM PDT) + + | Specimen | + + | | + + + + + | Narrative | Performed At | + + + | This is a non-reportable procedure without a radiologist report and | | | is used for image storage only | | + + + + + | Procedure Note | + + | Javier Gay - 11/10/2018 7:55 PM PDT This is a non-reportable procedure | | without a radiologist report and isused for image storage only | + + XR Chest 1 Vw (06/07/2018 5:06 AM PDT) + + | Specimen | + + | | + + + + + | Narrative | Performed At | + + + | This is a non-reportable procedure without a radiologist report and | | | is used for image storage only | | + + + + + | Procedure Note | + + | Javier Gay Conversion - 11/10/2018 7:55 PM PDT This is a non-reportable procedure | | without a radiologist report and isused for image storage only | + + documented in this encounter Visit Diagnoses + + | Diagnosis | + + | Seizure (HCC) Other convulsions | + + | Acute cystitis without hematuria Acute cystitis | + + | History of stroke Transient ischemic attack (TIA), and cerebral infarction without | | residual deficits | + + documented in this encounter
--- OUTSIDE RECORDS SUMMARY | ~2019-09-05 | XMS | Encounter Summary ---
Demographics + + + | Address | [address] | | | [place] [address] | + + + | Home Phone | | + + + | Preferred Language | Unknown | + + + | Marital Status | | + + + | Religion Affiliation | PRO | + + + [...] [place] | | | | | [address] | | + + + + + Care Team Providers + +------+ + | Care Special Assemblies Supervisor Name | Role | Phone | [...]
--- OUTSIDE RECORDS SUMMARY | ~2019-09-05 | XMS | Encounter Summary ---
Demographics + + + | Address | [address] | | | [place] [address] | + + + | Home Phone [...] [place] | | | | | [address] | | + + + + + Care Team Providers + +------+ + | Care Applied Behavior Science Specialist Name | Role | Phone | [...] | Closed | | | | | [facility] | | | | | | | Short Stay | | | | | | | [address] | | | | | | | [address] | | | | | | | [address] | | | | | | | [facility] | | | | | | | [facility] | | | | | | | [facility] | | | | | | | ([facility]) | | | | | | | [place], | | | | | | | [place] [address] | | | | | | | Phone: | | | | | | | [phone] | | | | | | | Fax: | | | | | | | [phone] | +--------+--------+ + + + + Encounter Details +--------+ + + + + | Date | Type | Department | Care Team | Description | +--------+ + + + + | 09/08/ | Hospital | [facility] [address] | Noe Hdez, | | | 2008 | Encounter | [address] | MD [address] | | | | | [facility] | [facility] [place] | | | | | [facility] | [address] | | | | | ([facility]) | [phone] | | | | | [place], [place] | | | | | | [address] | | | | | | [phone] | | | +--------+ + + + [...] + + + | Blood Pressure | 165/69 | 09/08/2008 6:40 PM | | | | | PDT | | + + + + + | Pulse | 53 | 09/08/2008 6:40 PM | | | | | PDT | | + + + + + | Temperature | 36.2 C (97.2 F) | 09/08/2008 4:45 PM | | | | | PDT | | + + + + + | Respiratory Rate | 16 | 09/08/2008 6:40 PM | | | | | PDT | | + + + + + | Oxygen Saturation | 98% | 09/08/2008 6:40 PM | | | | | PDT | | + + + + + | Inhaled Oxygen | - | - | | | Concentration | | | | + + + + + | Weight | 87.1 kg (192 lb) | 09/08/2008 1:29 PM | | | | | PDT | | + + + + + | Height | 162.6 cm (5' 4") | 09/08/2008 1:29 PM | | | | | PDT | | + + + + + | Body Mass Index | 32.96 | 09/08/2008 1:29 PM | | | | | PDT | | + + + + + documented in this encounter Discharge Summaries Gautam Taveras MD - 09/08/2008 4:50 PM PDTDISCHARGE SUMMARY: Admission Date: 09/08/2008 Discharge Date: 09/08/2008 Attending Surgeon: Dr. Hdez Service: Urology Principal Final Diagnosis: Right urolithiasis Additional Diagnoses: None Principal Procedure: Right ureteroscopy with laser lithotripsy Additional Procedures: Stent placement Reason for Admission, Hospital Course: 62 yo female with obstructing right ureteral stone. Previously underwent stent placement. OR for above, see op note for details. Tolerated well. Able to void. Pain controlled. S ent home. Discharge Medications: See DC-1811 medication list and prescriptions Cipro x 3 days Oxycodone PRN pain Diet: Reg Condition On Discharge: Good. Able to void. Activity: Light activity with no heavy lifting or straining for 2 weeks Wound Care: None Special Instructions: Call if unable to urinate. HAVING A URETERAL STENT: Call: [facility] Urology/Renal Transplant at If you have any of the following: Difficulty breathing or unusual shortness of breath Excessive bleeding, drainage at the operative site Fevers, chills, increased pain that is not relieved by pain medications Persistent nausea or vomiting Other SPECIFIC concerns, such as: If you are unable to urinate. Follow Up Appointments: Dr. Hdez in 2 weeks Follow Up Tests: (Tests at [facility] must be entered into [facility]) Ureteral stent removal Discharge Patient To: Home Discharging Provider: GAUTAM TAVERAS MD Date Completed: 09/08/2008 documented in this en counter Discharge Instructions Instructions Genoveva Yoon RN - 09/08/2008INPATIENT PROVIDER DISCHARGE AND INTERDISCIPLI NARY INSTRUCTIONS Admission Date: 09/08/2008 Discharge Date: 09/08/2008 Attending Surgeon: Dr. Hdez Service: Urology Principal Final Diagnosis: Right urolithiasis Additional Diagnoses: None Principal Procedure: Right ureteroscopy with laser lithotripsy Additional Procedures: Stent placement Reason for Admission, Hospital Course: See d/c summary Discharge Medications: See DC-1811 medication list and prescriptions Cipro x 3 days Oxycodone PRN pain Diet: Reg Condition On Discharge: Good. Able to void. Activity: Light activity with no heavy lifting or straining for 2 weeks Wound Care: None Special Instructions: Call if unable to urinate. HAVING A URETERAL STENT: What to Expect and How to Manage INTRODUCTION In patients who have, or might have, an obstruction (blockage) of the kidney, an internal d rainage tube called a stent is commonly placed in the ureter, the tube between the kid naveen and the bladder. This is placed there in order to prevent or temporarily relieve the obs truction. The booklet contains general information about ureteric stents, explains the benef its to be derived from them and mentions some of the drawbacks that patients might experienc e. Your urologist is planning to use such a stent for you. The booklet is divided into two parts: The first part explains about the urinary system, obstruction of the kidneys and treatm ent of this obstruction using ureteric stents. The second part describes what to expect while the stent is in place and any possible s emerson effects. Your urologist will explain the specific details applicable to you. PART I: THE URINARY SYSTEM AND URETERIC STENTS THE URINARY SYSTEM AND THE URETER The kidneys produce urine. Normally there are two kidneys situated in the upper part of the abdomen, towards the back. The urine formed in the kidney is carried to the bladder by a fi ne muscular tube called a ureter. The urinary bladder acts as a reservoir for the urine and when it is full it is emptied via the urethra (water passage). HOW DOES A KIDNEY BECOME OBSTRUCTED? Common causes of obstruction of the kidneys and ureter are: a kidney stone or its fragment moving into the ureter, either spontaneously, or occasio selina following such treatment as shock wave therapy. narrowing (stricture) of the ureter anywhere along its path. This can be due to various causes e.g. scarring of wall of the ureter, narrowing of the area where ureter leaves from the kidney (ureteropelvic junction). temporarily, following an operation or after an in instrument has been inserted into th e ureter and kidneys. Occasionally, obstruction can occur because of diseases of the prostat e or tumors of the urinary system. Your urologist will provide further details applicable to you. WHAT ARE THE EFFECTS OF OBSTRUCTION? Whenever there is an obstruction, pressure builds up behind the kidney. Due to high pressur e, the function of the kidneys starts to suffer over a period of weeks. The obstruction can also cause stagnation of the urine, which can lead to infection and further damage to the ki dneys. It is, therefore, important to relieve or prevent obstruction of the kidneys. TEMPORARY RELIEF OF THE OBSTRUCTION It is not always possible to identify what has caused an obstruction and to treat this imme diately. It is therefore essential to relieve the obstruction on a temporary basis before tr eatment is carried out. Also, following an operation on the ureters, it takes time for the ureters to heal and a te mporary measure to prevent obstruction becomes essential. This is commonly achieved by inser ting a ureteric stent to make a channel for the urine to pass and allow the kidneys to drain . WHAT IS A URETERIC STENT? A ureteric stent is a specially designed hollow tube, made of a flexible plastic material t hat is placed in the ureter. The length of the stents used in adult patients varies between 24 to 30 cm. Although there are different types of stents, all of them serve the same purpos e. HOW DOES A STENT STAY IN PLACE? The stents are designed to stay in the urinary system by having both the ends coiled. The t op end coils in the kidney and the lower end coils inside the bladder to prevent its displac ement. The stents are flexible enough to withstand various body movements. HOW IS A URETERIC STENT PUT IN PLACE? Usually a stent is placed under a general anaesthetic using a special telescope (cystoscope ) which is passed through the urethra into the bladder. The stents are then placed in the ur eter and kidney via the opening of the ureter in the bladder. The stent may be inserted as a n additional part of an operation on the ureter and kidney (e.g. ureteroscopy). Occasionally they are placed from the kidney down to the bladder using special x-ray techniques. The cor rect position of a stent is checked by taking a x-ray. HOW LONG WILL THE STENT STAY IN THE BODY? There is no hard and fast rule about this. The stent has to be kept in place as long as nec essary, i.e. until the obstruction is relieved. This depends on the cause of obstruction and the nature of its treatment. In the majority of patients, the stents are required for only a short duration, from a few weeks to a few months. However, a stent in the right position can stay in for up to three mo nths without the need to replace it. A ureteral stent should be removed within three months to prevent stone formation on the stent. When the underlying problem is not a kidney stone, the stent can stay even longer. There are special stents, which may be left in for much long er time. Your urologist will tell you how long he expects your stent to remain in place. HOW IS A STENT REMOVED? This is a short procedure and consists of removal of the stent using a flexible cystoscope, usually under local anaesthesia. Sometimes a stent can be left with a thread attached to it s lower end that stays outside the body through the urethra. Doctors can remove such stents by just pulling this thread. IS THERE AN ALTERNATIVE OPTION TO THE USE OF A STENT? There is no simple alternative option. In some patients, a tube draining the urine to the o utside called a nephrostomy tube , may be placed in the kidney. However, this involves carrying a urine collection bag attached to your back, which requires proper care. If you need this treatment your urologist will explain in detail what is involved. PART 2: LIVING WITH A URETERIC STENT INTRODUCTION Ureteric stents are designed to allow people to lead as normal a life as possible. However, they may not be without side effects. In placing a stent, there is a balance between its ad vantages in relieving the obstruction and any possible side effects. Most side effects are n ot a danger to your health or your kidneys, although they can be a nuisance. Below, we have described all the possible side effects associated with a ureteric stent. WHAT ARE THE POSSIBLE SIDE EFFECTS ASSOCIATED WITH A STENT? Many patients do not experience problems with the stents. In the majority of the patients e xperiencing side effects they are minor and tolerable. However sometimes they can be moderat e to severe in nature. Commonly noted side effects are: The majority of patients with a stent in place will be aware of its presence most of th e time. Urinary symptoms There might be: - an increased frequency of passing urine - the need to cruz to pass urine (urgency) - a small amount of blood in the urine. This is quite common and the situation can improve with a greater fluid intake. - the stents can also result in a sensation of incomplete emptying of the bladder. - very occasionally, especially in women, there is a slight risk of episodes of incontinenc e. These effects are possibly due to the presence of the stent inside the bladder causing me chanical irritation. These effects should disappear when the stent is removed. - Discomfort or pain Stents can cause discomfort or pain, commonly in the bladder and kidney (loin) area, but so metimes in other areas such as the groin, urethra and genitals. The discomfort or pain may b e more noticeable after physical activities and after passing urine. Complete understanding of these side effects and their causes is not clear at present. It has also not been possibl e to predict, before placement of a stent, which patients are likely to experience side effe cts and what they will be. DURATION OF SIDE EFFECTS ASSOCIATED WITH A STENT - CAN THEY IMPROVE? There is some evidence that some of the symptoms, such as pain while passing urine and bloo d in the urine, may improve with time. However, this remains unpredictable. It has been repo rted that around 20-70% of patients with stents experience one or more of these side effects . Medical science and the stent manufacturers are working to develop a stent that will cause the least possible side effects. CAN THE SIDE EFFECTS INTERFERE WITH MY DAY TO DAY LIFE? The stents are not expected to cause much disruption to your normal daily life. However, yo u may experience some side effects that can cause some problems, either directly or indirect ly. Let us look at this in relation to various daily activities: Physical activities and sports: You can carry on with various physical activities while the stent is in place provided the underlying kidney condition and your health allows you to do it. However, you may experience some discomfort in the kidney area and passing of blood in your urine, especially if sports and strenuous physical activities are involved. Sometimes side effects associated with a st ent can make you feel more tired than normal. Work activities: You can continue to work normally with the stent inside your body. However, if the work inv olves lot of physical activities, you may experience more discomfort. Occasionally side effe cts, such as urinary symptoms and pain associated with the stent, may make you feel tired. I f the stent causes significant problems, you can discuss it with your manager activities and colleagues so that possible temporary adjustments can be made at your work place. Social life and interactions: The presence of a stent should not affect this in a significant way. In case you get urinar y symptoms such as, increased frequency and urgency, you may need to use public toilets more frequently while taking part in outdoor activities. Occasionally you may need a little more help from family members or colleagues, because of any pain or tiredness you may feel. Travel and holidays: It is possible to travel with a stent in place, provided the underlying kidney condition an d your general health allows this. However, presence of significant side effects associated with the stent may make travel and holidays less enjoyable. Also there is a small possibilit y that you may require additional medical help while the stent is in place. Sex: There are no restrictions on your sex life due to the presence of a stent. Few patients exp erience discomfort during sexual activities. Occasionally the side effects associated with t he stent may have an effect on the sexual desire. If you have a stent with a thread coming outside the body through the urethra, sexual activ ities may be difficult. Care will be required so as not to dislodge the thread, which could then in turn displace the stent. CAN A STENT GET DISPLACED? WHAT OTHER COMPLICATIONS ARE POSSIBLE? Occasionally a stent may develop a crystal coating on its surface although this is not a si gnificant problem. If left in place too long, a ureteral stent can become completely calcifi ed requiring a more invasive procedure to remove it. For this reason it is critical to have your temporary stent removed within 3 months. Very occasionally a stent may get displaced, u sually slipping towards the bladder, and it may even fall out. If this happens, you should contact the urologist telecommunications field technician for [facility]. IS THERE POSSIBILITY OF A URINARY TRACT INFECTION? The presence of a stent, along with the underlying kidney problem, makes it more likely claudia t you could get a urinary tract infection. Some of the symptoms that you may experience if y ou get a urinary tract infection are raised temperature, increased pain or discomfort in the kidney or bladder area, a burning sensation while passing urine and feeling unwell. This us ually requires treatment with antibiotics. WHAT CARE DO I NEED TO TAKE? It is essential that you drink at least 11/2 to 2 liters (approximately four pints) of fluids, mainly water, a day. This will help to cut down the risk of getting an infection and will reduce the amount of blood in the urine. It will also help in the treatment of stones. If you experience bothersome pain you can take painkillers for relief, on the advice of a doctor. If you have got a stent with a thread coming down from the urethra outside the body, th en more care will be needed so as not to dislodge the thread. Again, it is critical that you have your ureteral stent removed as instructed by your urologist, generally within a week o r two. A stent should not be left in place longer than 3 months (except under special circum stances) to prevent stone formation on the stent. If in any doubt please seek medical help. WHEN SHOULD I CALL FOR HELP? You should contact a doctor or a hospital: *if you experience a constant and unbearable pain associated with the stent. *if you have symptoms of urinary tract infection as mentioned above (e.g. a raised temperat ure, pain during passing urine and feeling unwell) *the stent gets dislodged or falls out. *if you notice a significant change in the amount of blood in your urine. For medical emergencies, call 911. Call: [facility] Urology/Renal Transplant at If you have any of the following: Difficulty breathing or unusual shortness of breath Excessive bleeding, drainage at the operative site Fevers, chills, increased pain that is not relieved by pain medications Persistent nausea or vomiting Other SPECIFIC concerns, such as: If you are unable to urinate. Follow Up Appointments: Dr. Hdez in 2 weeks Follow Up Tests: (Tests at [facility] must be entered into [facility]) Ureteral stent removal Discharge Patient To: Home Discharging Provider: GAUTAM TAVERAS MD Date Completed: 09/08/2008 [facility] After CYSTOSCOPY Follow the guidelines below. Call your doctor if you notice any unusual symptoms. Remember : You are under the influence of medication. Do not drive, drink alcoholic beverages, sign legal documents or make major decisions during the next 24 hours. WOUND CARE You may feel a burning sensation when you urinate (pass water) You may urinate more often for several hours after your procedure You may have a small amount of bleeding or see a few small blood clots when you urinate for the next few days. DIET and MEDICATION You may resume your normal diet unless your doctor tells you otherwise. For the next 2 days, drink at least 8 glasses of water or fruit juice You may resume your regular medications unless told otherwise by your doctor. CALL YOUR DOCTOR IF: Call your doctor right away if you have any of the following: Blood clots remain in urine after 24 hours You cannot urinate (pass water) Fever over 101 Flank pain Chills HOW TO REACH YOUR DOCTOR Friday from 8:00 4:30, call the Urology Clinic [phone]. After hours, weekend and holidays call the Hospital Customer Service Advocate at [phone]. Ask for them to page your doctor. Your doctor is . RETURN APPOINTMENT Call Dr Lal's office for follow up appointment Call the Urology clinic to arrange for follow-up __14_ days/weeks after surgery. Please call the clinic if you need to cancel or reschedule your appointment. documented in this encounter Medications at Time [...] | + +---------+--------+ + + | X-RAY | Imaging | Routin | | 09/08/2008 4:35 PM | | URETHROCYSTOGRAPHY | | e | | PDT | | [facility] | | | | | + +---------+--------+ + + documented as of this encounter Procedures + +--------+ + + + | Procedure Name | Priori | Date/Time | Associated Diagnosis | Comments | | | ty | | | | + +--------+ + + + | PROCEDURE NOTE | Routin | 05/05/2015 | | Results for this | | | e | 1:03 PM | | procedure are in the | | | | PST | | results section. | + +--------+ + + + | STONE ANALYSIS | Routin | 09/09/2008 | | Results for this | | | e | 9:32 AM | | procedure are in the | | | | PDT | | results section. | + +--------+ + + + | ANESTHESIA/SEDATION | | 09/08/2008 | | Results for this | | | | 7:30 PM | | procedure are in the | | | | PDT | | results section. | + +--------+ + + + | ANESTHESIA/SEDATION | | 09/08/2008 | | Results for this | | | | 7:30 PM | | procedure are in the | | | | PDT | | results section. | + +--------+ + + + | ANESTHESIA/SEDATION | | 09/08/2008 | | Results for this | | | | 12:00 AM | | procedure are in the | | | | PDT | | results section. | + +--------+ + + + | ANESTHESIA/SEDATION | | 09/07/2008 | | Results for this | | | | 12:00 AM | | procedure are in the | | | | PDT | | results section. | + +--------+ + + + | ANESTHESIA/SEDATION | | 09/07/2008 | | Results for this | | | | 12:00 AM | | procedure are in the | | | | PDT | | results section. | + +--------+ + + + documented in this encounter Results PROCEDURE NOTE (05/05/2015 1:03 PM PST)STONE ANALYSIS (09/09/2008 9:32 AM PDT) + + + + + + | Component | Value | Ref Range | Performed | Pathologist | | | | | At | Signature | + + + + + + | CALCULI | See NoteComment: Calculi | % | | | | (STONE) | composed primarily | | | | | COMPOSITION | of:90% calcium oxalate | | | | | | monohydrate, and10% uric | | | | | | acid.Performed by [facility] | | | | | | [facility],[address] | | | | | | [place] [address] | | | | | | [phone].[employer]. | | | | | | [facility], | | | | | | - Lab. Director | | | | + + + + + + | CALCULI | 262Comment: TEST | None Given mg | | | | (STONE) | INFORMATION: Calculi | | | | | WEIGHT | (Stone) analysisHuman | | | | | | and/or animal calculi | | | | | | are the products | | | | | | ofphysiological | | | | | | processes that yield | | | | | | crystalline compoundsin | | | | | | a matrix of biological | | | | | | compounds and blood. | | | | | | Theclinically | | | | | | significant crystalline | | | | | | components identifiedin | | | | | | calculi samples are | | | | | | documented on the sample | | | | | | report.Matrix | | | | | | components are not | | | | | | reported. | | | | + + + + + + | CALCULI | A) right renal stones, | | | | | (STONE) | surgical | | | | | SOURCE | | | | | + + + + + + | CALCULI | 5 | | | | | (STONE) | | | | | | NUMBER | | | | | + + + + + + | CALCULI | 1 to 4 | mm | | | | (STONE) | | | | | | SIZE | | | | | + + + + + + | CALCULI | See NoteComment: | mm | | | | (STONE) | Specimen consists of | | | | | DESCRIPTION | five, small, | | | | | | brown,irregular calculi | | | | | | fragments. | | | | + + + + + + + + | Specimen | + + | | + + + + + + + | Performing | Address | City/State/Zipcode | Phone Number | | Organization | | | | + + + + + | [facility] | [address] | [place] [address] | | | PATHOLOGY | [address] | | | + + + + + ANESTHESIA/SEDATION (09/08/2008 7:30 PM PDT) + + + | Narrative | Performed At | + + + | | | + + + + + | Procedure Note | + + | Other, Faculty - 09/08/2008 7:30 PM PDT | | | + + ANESTHESIA/SEDATION (09/08/2008 7:30 PM PDT) + + + | Narrative | Performed At | + + + | | | + + + + + | Procedure Note | + + | Kassandra Frazier - 09/08/2008 7:30 PM PDT | | | + + ANESTHESIA/SEDATION (09/08/2008 12:00 AM PDT) + + + | Narrative | Performed At | + + + | | | + + + + + | Procedure Note | + + | Other, Faculty - 09/08/2008 12:00 AM PDT | | | + + ANESTHESIA/SEDATION (09/07/2008 12:00 AM PDT) + + + | Narrative | Performed At | + + + | | | + + + + + | Procedure Note | + + | Kassandra Frazier - 09/07/2008 12:00 AM PDT | | | + + ANESTHESIA/SEDATION (09/07/2008 12:00 AM PDT) + + + | Narrative | Performed At | + + + | | | + + + + + | Procedure Note | + + | Other, Faculty - 09/07/2008 12:00 AM PDT | | | + + documented in this encounter Visit Diagnoses Not on filedocumented in this encounter Administered Medications + +--------+ +--------+------+------+ | Medication Order | MAR | Action | Dose | Rate | Site | | | Action | Date | | | | + +--------+ +--------+------+------+ | fentanyl (aka SUBLIMAZE) | Given | 09/09/19 | 50 mcg | | | | injection 1 dose, Starting Regine | | 09 5:15 | | | | | 09/08/08 at 1710, Until Regine | | PM PDT | | | | | 09/08/08 at 1715 | | | | | | + +--------+ +--------+------+------+ +---+---+ | | | +---+---+ + +-------+ +-------+---+---+ | hydrALAZINE (aka APRESOLINE) | Given | 09/09/19 | 10 mg | | | | injection 1 dose, Starting Regine | | 09 5:20 | | | | | 09/08/08 at 1719, Until Regine | | PM PDT | | | | | 09/08/08 at 1720 | | | | | | + +-------+ +-------+---+---+ +---+---+ | | | +---+---+ + +-------+ +-------+---+---+ | labetalol (aka | Given | 09/09/19 | 15 mg | | | | NORMODYNE,TRANDATE) injection 1 | | 09 5:45 | | | | | dose, Starting Regine 09/08/08 at | | PM PDT | | | | | 1743, Until Regine 09/08/08 at 1745 | | | | | | + +-------+ +-------+---+---+ +---+---+ | | | +---+---+ + +-------+ +-------+---+---+ | oxycodone (immediate release) | Given | 09/09/19 | 10 mg | | | | (aka ROXICODONE) tablet 1 dose, | | 09 6:45 | | | | | Starting Regine 09/08/08 at 1844, | | PM PDT | | | | | Until Regine 09/08/08 at 1845 | | | | | | + +-------+ +-------+---+---+ +---+---+ | | | +---+---+ documented in this encounter
--- OUTSIDE RECORDS SUMMARY | ~2019-09-05 | XMS | Encounter Summary ---
Demographics + + + | Address | [address] | | | [place] [address] | + + + | Home Phone | | + + + | Preferred Language | Unknown | + + + | Marital Status | | + + + | Anabaptist Affiliation | 1077 | + + + | Race | Unknown | + + + | Ethnic Group | Unknown | + + + Author + + + | Author | [facility] | | | and [place] | + + + | Organization | [facility] | | | and [...] [place] | | | | | [address] | | + + + + + | Najma Xiong | ECON | Unknown | | + + + + + | Hector Mack | ECON | [address] | | | | | [place] | | | | | [address] | | + + + + + Care Team Providers + +------+ + | Care Tea Leaf Reader Name | Role | Phone | + [...] 2018 | Visit | HOSPITAL DERMAT[facility] | DIGITAL TECHNICIAN [address] | nonspecific skin | | | | CLINIC [address] | [place], | eruption (Primary | | | | [place], | [place] [address] | Dx) | | | | [place] [address] | [phone] | | | | | [phone] | | | +--------+---------+ + + + [...] encounter Patient Instructions Patient Instructions Katherine Dixon, MANAGER OF INTERNAL - 02/03/2018 2:31 PM PSTThe patient was career guidance counselor ed regarding the above findings: Please [...] a.m. to 4 p.m. Date Last Reviewed: 03/31/201619997958-0495 [employer]. [address] [place] [address], [place] [address]. All righ ts reserved. This information is not intended as a substitute for professional medical care. Always follow your healthcare professional's instructions. documented in this encounter Progress Notes Landen Zimmer, DIGITAL TECHNICIAN - 02/03/2018 1:15 PM PST Patient Name: [...] "atleast 7", cant remember dates Stroke (HCC) 2013 some memory problems Personal History of Skin [...] A total of 40 minutes was spent [id number] with patient, greater than 50% of which [...] accurately describes the serv ices I performed. KHANH Ramos DCNP documented in this encounter Plan of [...] [place] | | | | | | [address] | | | | | | | [...] | SPECIMEN(S): C LEFT UPPER BACK IN [facility] SPECIMEN(S): A RIGHT CHEST | [place] [facility] | | SPECIMEN(S): B LEFT CHEST SPECIMEN SOURCE: A. RIGHT CHEST B. | [facility] | | LEFT CHEST C. LEFT UPPER BACK IN [facility] CLINICAL HISTORY: A, B. | | | Rule out contact dermatitis vs. lupus vs. other. C. Sent to [facility] | | | for Dif. R21 (rash [...] has been reviewed and dictated by Spencer Edmond, | | | Chey, Board-Certified Dermatopathologist. Part [...] | | formalin in a container labeled "[facility], site A, right | | | chest" is an unoriented skin punch biopsy, measuring 0.5 cm in | | | diameter x 0.4 cm in depth. The base of the specimen is inked black | | | and it is bisected and entirely submitted in one cassette (A1). | | | B. Received in formalin in a container labeled "[facility], | | | site B, left upper chest" is an unoriented skin punch biopsy, | | | measuring 0.6 cm in diameter x 0.4 cm in depth. The base of the | | | specimen is inked black and it is sectioned and entirely submitted in | | | one cassette (B1). C. The specimen is labeled and designated | | | "[facility], site C" and requisition further indicates "back, upper | | | left," is received in Yosi fixative and consists of a 0.5 cm, | | | pink-hung skin ellipse, excised to a depth of 0.5 cm. The specimen is | | | submitted for immunofluorescence studies NRT:cr:cml:las | | | PERFORMING LABORATORY: The technical component was performed by | | | [facility], [facility], [address] | | | [place], [place] [address] ([employer]verter: Papi Gabriel MD; CLIA# | | | [id number]). Professional interpretation was performed by [facility] | | | [facility], [facility], [address] | | | [place] [address] ([employer] Converter: Spencer Whitley | | | Chey Edmond; CLIA#: [id number]). Professional interpretation | | | of the direct immunofluorescence was performed by [facility], | | | [address] [place] [address] ([employer] Converter: | | | Eitan Baig D.O.; CLIA#: [id number]). Diagnostician: | | | Spencer Edmond MD [...] | | at 0945, For 1 dose, Florentin well. | | | | | | [...] | | | | | | dose, Florentin well. Not for IV | | | | | | | use., | | | | | | + +-------+ +-------+---+ + +---+---+ | | | +---+---+ documented in this encounter
--- OUTSIDE RECORDS SUMMARY | ~2019-09-05 | XMS | Encounter Summary ---
Demographics + + + | Address | [address] | | | [place] [address] | + + + | Home Phone | | + + + | Preferred Language | Unknown | + + + | Marital Status | | + + + | Taoism Affiliation | PRO | + + + [...] [place] | | | | | [address] | | + + + + + Care Team Providers + +------+ + | Care Funeral Attendant Name | Role | Phone | + +------+ + | Tuan Chan MD | PCP | | + +------+ + Encounter Details +--------+ + + + + | Date | Type | Department | Care Team | Description | +--------+ + + + + | 11/22/ | Ancillary | Registration [id number] | Papi Johnson MD | | | 2005 | Registratio | [facility] | [address] | | | | n | [place] Mailcode: [id number] | [address] [place], | | | | | [place], [place] | [place] [address] | | | | | [address] | [phone] | | | | | [phone] | | | +--------+ + + + [...]
--- OUTSIDE RECORDS SUMMARY | ~2019-09-05 | XMS | Encounter Summary ---
Demographics + + + | Address | [address] | | | [place] [address] | + + + | Home Phone | | + + + | Preferred Language | Unknown | + + + | Marital Status | | + + + | Caodaism Affiliation | 1077 | + + + | Race | Unknown | + + + | Ethnic Group | Unknown | + + + Author + + + | Author | [facility] | | | and [place] | + + + | Organization | [facility] | | | and [place] | [...] [place] | | | | | [address] | | + + + + + | Najma Xiong | ECON | Unknown | | + + + + + | Hector Mack | ECON | [address] | | | | | [place] | | | | | [address] | | + + + + + Care Team Providers + +------+ + | Care Cost Recorder Name | Role | Phone | + +------+ + | Tuan Chan MD | PCP | | + +------+ + Encounter Details +--------+---------+ + + + | Date | Type | Department | Care Team | Description | +--------+---------+ + + + | 06/10/ | Surgery | [facility] | Leandra Chávez, | CV DIAGNOSTIC | | 2016 | | MED CTR CV INTRA OP | MD [address] | CARDIAC CATH | | | | [address] | [place] | | | | | [place], [place] | [address] | | | | | [address] | | | | | | [phone] | | | +--------+---------+ + + + [...] Unstable angina . She was transferred from [facility] with ongoing chest pain. Today at lunch time she developed chest discomfort. She was preparing lunch at the time. T he discomfort was sharp and stabbing. She was transferred from [facility] on NTG and heparin. The transfer took about 8 hours. The pain has not gone away. She was started on NTG drip a nd heparin. NTG was titrated up. She arrived here on 30 mcg/ min. She still had 4/10 pain . She had no acute ECG changes. She had some dyspnea and diaphoresis no radiation. She was taken to the center medical and lab director due to ongoing chest pain: PROCEDURES PERFORMED: [...] was performed in multiple views using 6 Macanese JL5 and 5 F AL1 and an [...] medication that helps the stomach empty better. [id number] [employer]. [address] [place] [address], [place] [address]. All righ ts reserved. This information is [...] [place] | | | | | | [address] | | | | | | | [...] PROVIDER: | | | Tuan Chan MD FEATURE WRITER: Dr. Leandra Chávez MD, | | | [facility], [facility] PRE-PROCEDURE DIAGNOSIS: Unstable Angina | [...] multiple views | | | using 6 Macanese JL5 and 5 F AL1 and an JESUS diagnostic catheters. | | | A 5 turkmen pigtail catheter was advanced into the left [...] RECOMMENDATIONS Continue medical Rx Leandra Chávez MD, FACC, | | | [facility] DATE/TIME: 06/12/2015 0:27 | | | 06/12/2015 0:27 Portions of this chart were created with [employer] | | | voice recognition software. Occasional [...] | | chromogenic agar method | | [facility] | | | [...] [address] | [place] | [phone] | | [facility] | | [address] | | | - LABORATORY | | [...] | | | | ERWIN MORALES MD ([id number]) | | | | | | on [...] | | | | | mg/dL | [facility] | | | | | | [...] + | [facility] | [address] | [place] | [phone] | | [facility] | | [address] | | | - LABORATORY | | [...] + + | [facility] | [address] | [place] | [phone] | | [facility] | | [address] | | | - LABORATORY | | [...] | | | | mmol/L | [facility] | | | | | | MEDICAL | | | | | | CENTER - | | | | | | LABORATORY | | + + + + + + | K | 3.4 (L) | 3.5 - 5.1 | [facility] | | | | | mmol/L | [facility] | | | | [...] 7 | 7 - 18 mg/dL | [facility] | | | | | | [facility] | | | | | | MEDICAL | | | | | | CENTER - | | | | | | LABORATORY | | + + + + + + | Creatinine | 0.57 (L) | 0.60 - 1.30 | [facility] | | | | | mg/dL | [facility] | | | | | | MEDICAL | | | | | | CENTER - | | | | | | LABORATORY | | + + + + + + | eGFR if not | >60Comment: GLOMERULAR | >=60 | [facility] | | | | FILTRATION | mL/min/1.73m2 | [facility] | | | CYPRIOT | RATE,ESTIMATED | | MEDICAL | | | | mL/min/1.81d9Cyov than | | CENTER - | | [...] | | | Protein | | | [facility] | | | | | | MEDICAL | | | | | | CENTER - | | | | | | LABORATORY | | + + + + + + | AST | 20Comment: This is an | 10 - 42 U/L | [facility] | | | | appended report. These | | [facility] [...] | | bulin Ratio | | | [facility] | | [...] + + | [facility] | [address] | [place] | [phone] | | [facility] | | [address] | | | - LABORATORY | | [...] [facility] | | | | | | . [facility] | | | | | | [...] + | [facility] | [address] | [place] | [phone] | | [facility] | | [address] | | | - LABORATORY | | | | + + + + + Troponin I (06/11/2015 9:40 PM PDT) + + + + + + | Component | Value | Ref Range | Performed | Pathologist | | | | | At | Signature | + + + + + + | Troponin I | 0.01Comment: Reference | <0.06 ng/mL | [facility] | | | | Ranges:0.00-0.06 = | [...] | | | | | | [employer] | | | | | [...] + | [facility] | [address] | [place] | [phone] | | [facility] | | [address] | | | - LABORATORY | | [...] [facility] | | | | | | [facility] | | | | | | [...] | + + + + + | [facility] | [address] | [place] | [phone] | | [facility] | | [address] | | | - LABORATORY | | | | + + + + + documented in this encounter Visit Diagnoses Not on filedocumented in this encounter
--- OUTSIDE RECORDS SUMMARY | ~2019-09-05 | XMS | Encounter Summary ---
Demographics + + + | Address | [address] | | | [place] [address] | + + + | Home Phone | | + + + | Preferred Language | Unknown | + + + | Marital Status | | + + + | Jew Affiliation | 1077 | + + + | Race | Unknown | + + + | Ethnic Group | Unknown | + + + Author + + + | Author | [facility] | | | and [place] | + + + | Organization | [facility] | | | and [...] [place] | | | | | [address] | | + + + + + | Najma Xiong | ECON | Unknown | | + + + + + | Hector Mack | ECON | [address] | | | | | [place] | | | | | [address] | | + + + + + Care Team Providers + +------+ + | Care Teaching Assistant Name | Role | Phone | + +------+ + PCP | Unavailable | + +------+ + Encounter Details +--------+ + + + + | Date | Type | Department | Care Team | Description | +--------+ + + + + | 01/06/ | Hospital | [facility] | | | | 1991 | Encounter | MED CTR XRAY [address] | | | | | | [place] | | | | | | [place] [address] | | | | | | [phone] | | | +--------+ + + + [...] [place] | | | | | | [address] | | | | | | | | +--------+---------+ + + + documented as of this encounter Visit Diagnoses Not on filedocumented in this encounter"
--- OUTSIDE RECORDS SUMMARY | ~2019-09-05 | XMS | Encounter Summary ---
Demographics + + + | Address | [address] | | | [place] [address] | + + + | Home Phone | | + + + | Preferred Language | Unknown | + + + | Marital Status | | + + + | Zoroastrian Affiliation | PRO | + + + [...] [place] | | | | | [address] | | + + + + + Care Team Providers + +------+ + | Care Soakers Supervisor Name | Role | Phone | [...] | [place] Mailcode: [id number] | [address] [place], | | | | | [place], [place] | [place] [address] | | | | | [address] | [phone] | | | | | [phone] | | | +--------+ + + + [...]
--- OUTSIDE RECORDS SUMMARY | ~2019-09-05 | XMS | Encounter Summary ---
Demographics + + + | Address | [address] | | | [place] [address] | + + + | Home Phone | | + + + | Preferred Language | Unknown | + + + | Marital Status | | + + + | Scientologist Affiliation | PRO | + + + [...] [place] | | | | | [address] | | + + + + + Care Team Providers + +------+ + | Care Shoe Cobbler Name | Role | Phone | + +------+ + | Tuan Chan MD | PCP | | + +------+ + Encounter Details +--------+ + + + + | Date | Type | Department | Care Team | Description | +--------+ + + + + | 06/25/ | Ancillary | Registration [id number] | Wes Wolff MD | | | 2005 | Registratio | [facility] | [address] | | | | n | [place] Mailcode: [id number] | [place], [place] | | | | | [place], [place] | [address] | | | | | [address] | [phone] | | | | | [phone] | | | +--------+ + + + [...] DEPARTMENT OF | [address] | [place] [address] | | | PATHOLOGY | [address] | | | + + + + + | [facility] DEPARTMENT | [address] | [place] [address] | | | PATHOLOGY | [address] | | | + + + + + PROTHROMBIN TIME (06/25/2005 9:45 AM PST) + + + + + + | Component | Value | Ref Range | Performed | Pathologist | | | | | At | Signature | + + + + + + | INR | 0.90Comment: | 0.90 - 1.20 INR | [facility] | | | | PT INR Therapeutic [...] | [facility] | [address] | [place] [address] | | | PATHOLOGY | [address] | | | + + + + + | [facility] | [address] | [place] [address] | | | PATHOLOGY | [address] [...] Performed At | + + + | [id number] Estimated GFR > 60 mL/min/1.73 sq m if non- | [facility] | | [id number] Estimated GFR > 60 mL/min/1.73 sq m [...] | + + + + + | [facility] DEPARTMENT | [facility] | [place] [address] | | | PATHOLOGY | [address] | | | + + + + + | [facility] | [address] [facility] | [place] [address] | | | PATHOLOGY | [address] | | | + + + + + documented in this encounter Visit Diagnoses Not on filedocumented in this encounter"
--- OUTSIDE RECORDS SUMMARY | ~2019-09-05 | XMS | Encounter Summary ---
Demographics + + + | Address | [address] | | | [place] [address] | + + + | Home Phone [...] [place] | | | | | [address] | | + + + + + Care Team Providers + +------+ + | Care Castables Worker Name | Role | Phone | [...] | [place] Mailcode: [id number] | [address] [place], | | | | | [place], [place] | [place] [address] | | | | | [address] | [phone] | | | | | [phone] | | | +--------+ + + + [...]
--- OUTSIDE RECORDS SUMMARY | ~2019-09-05 | XMS | Encounter Summary ---
Demographics + + + | Address | [address] | | | [place] [address] | + + + | Home Phone | | + + + | Preferred Language | Unknown | + + + | Marital Status | | + + + | Denominational Affiliation | 1077 | + + + | Race | Unknown | + + + | Ethnic Group | Unknown | + + + Author + + + | Author | [facility] | | | and [place] | + + + | Organization | [facility] | [...] [place] | | | | | [address] | | + + + + + | Najma Xiong | ECON | Unknown | | + + + + + | Hector Mack | ECON | [address] | | | | | [place] | | | | | [address] | | + + + + + Care Team Providers + +------+ + | Care Reel Operator Name | Role | Phone | + +------+ + PCP | Unavailable | + +------+ + Encounter Details +--------+ + + + + | Date | Type | Department | Care Team | Description | +--------+ + + + + | 05/04/ | Hospital | [facility] | | | | 1996 - | Encounter | MED CTR OP REHAB | | | | | | [address] | | | | 08/19/ | | [place] [address] | | | | 1996 | | [phone] | | | +--------+ + + + [...] [place] | | | | | | [id number] | | | | | | | | +--------+---------+ + + + documented as of this encounter Visit Diagnoses Not on filedocumented in this encounter"
--- OUTSIDE RECORDS SUMMARY | ~2019-09-05 | XMS | Encounter Summary ---
Demographics + + + | Address | [address] | | | [place] [address] | + + + | Home Phone [...] [place] | | | | | [address] | | + + + + + Care Team Providers + +------+ + | Care Amplifier Mechanic Name | Role | Phone | [...] as of this encounter Progress Notes Interface, Hop Trainer In - 07/27/2005 2:07 AM PDT [id number] 07/25/2005 07/25/2005 [id number] ARETHA RAE [address] [place] [address] or July 25, 2005 Tuan Chan M.D. [address] [place], [place] RE: GERMAINE CARIAS MR #: [id number] Dear Dr. Chan: Your patient Ms. Germaine Carias returned for an office visit at [facility] on , July 25, 2005. She, [...] this kind referral. Sincerely, Wes Wolff M.D. [facility] / [id number] / [id number] / [id number] / cc: Papi Johnson M.D. [facility] General Surgery documented i n this encounter Plan of Treatment Not on filedocumented as of this encounter Visit Diagnoses Not on filedocumented in this encounter"
--- OUTSIDE RECORDS SUMMARY | ~2019-09-05 | XMS | Encounter Summary ---
Demographics + + + | Address | [address] | | | [place] [address] | + + + | Home Phone [...] + | Organization | [facility] | | | [...] [place] | | | | | [address] | | + + + + + | Najma Xiong | ECON | Unknown | | + + + + + | Hector Mack | ECON | [address] | | | | | [place] | | | | | [address] | | + + + + + Care Team Providers + +------+ + | Care Specialist Managers Name | Role | Phone | + +------+ + PCP | Unavailable | + +------+ + Encounter Details +--------+ + + + + | Date | Type | Department | Care Team | Description | +--------+ + + + + | 09/26/ | Hospital | [facility] | | | | 1994 - | Encounter | MED CTR MED ONC | | | | | | [address] | | | | 10/04/ | | [place] [address] | | | | 1994 | | [phone] | | | +--------+ + + + [...] [place] | | | | | | [id number] | | | | | | | | +--------+---------+ + + + documented as of this encounter Visit Diagnoses Not on filedocumented in this encounter"
--- OUTSIDE RECORDS SUMMARY | ~2019-09-05 | XMS | Encounter Summary ---
Demographics + + + | Address | [address] | | | [place] [address] | + + + | Home Phone | | + + + | Preferred Language | Unknown | + + + | Marital Status | | + + + | Scientologist Affiliation | 1077 | + + + | Race | Unknown | + + + | Ethnic Group | Unknown | + + + Author + + + | Author | [facility] | | | and [place] | + + + | Organization | [facility] | [...] [place] | | | | | [address] | | + + + + + | Najma Xiong | ECON | Unknown | | + + + + + | Hector Mack | ECON | [address] | | | | | [place] | | | | | [address] | | + + + + + Care Team Providers + +------+ + | Care Slip Dumper Name | Role | Phone | + +------+ + PCP | Unavailable | + +------+ + Encounter Details +--------+ + + + + | Date | Type | Department | Care Team | Description | +--------+ + + + + | 08/23/ | Hospital | [facility] | | | | 1991 | Encounter | MED CTR LABORATORY | | | | | | [address] | | | | | | [place] | | | | | | [address] | | | | | | [phone] | | | +--------+ + + + [...] [place] | | | | | | [id number] | | | | | | | | +--------+---------+ + + + documented as of this encounter Visit Diagnoses Not on filedocumented in this encounter"
--- OUTSIDE RECORDS SUMMARY | ~2019-09-05 | XMS | Encounter Summary ---
Demographics + + + | Address | [address] | | | [place] [address] | + + + | Home Phone | | + + + | Preferred Language | Unknown | + + + | Marital Status | | + + + | Worship Affiliation | 1077 | + + + | Race | Unknown | + + + | Ethnic Group | Unknown | + + + Author + + + | Author | [facility] | | | and [place] | + + + | Organization | [facility] | | | and [...] [place] | | | | | [address] | | + + + + + | Najma Xiong | ECON | Unknown | | + + + + + | Hector Mack | ECON | [address] | | | | | [place] | | | | | [address] | | + + + + + Care Team Providers + +------+ + | Care Double Cut Off Saw Operator Name | Role | Phone | + +------+ + PCP | Unavailable | + +------+ + Encounter Details +--------+ + + + + | Date | Type | Department | Care Team | Description | +--------+ + + + + | 10/18/ | Hospital | [facility] | | | | 1999 | Encounter | MED CTR EMERGENCY | | | | | | CENTER [address] | | | | | | [place] | | | | | | [address] | | | | | | [phone] | | | +--------+ + + + [...] [place] | | | | | | [id number] | | | | | | | | +--------+---------+ + + + documented as of this encounter Visit Diagnoses Not on filedocumented in this encounter"
--- OUTSIDE RECORDS SUMMARY | ~2019-09-05 | XMS | Encounter Summary ---
Demographics + + + | Address | [address] | | | [place] [address] | + + + | Home Phone | | + + + | Preferred Language | Unknown | + + + | Marital Status | | + + + | Religion Affiliation | PRO | + + + | Race | White | + + + | Ethnic Group | Not or | + + + Author + + + | Author | [facility] | + + + | Organization | [facility] | + + + | Address | Unknown | + + + | Phone | Unavailable | + + + Support + + + + + | Name | Relationship | Address | Phone | + + + + + | Hector Mack | ECON | [address] | | | | | [place] | | | | | [address] | | + + + + + Care Team Providers + +------+ + | Care Electric Mule Operator Name | Role | Phone | [...] | | 2008 | Visit | [address] | MD [address] | (Primary Dx) | | | | Mailcode: CH10U | [place], [place] | | | | | [facility] | [address] | | | | | and Healing, | [phone] | | | | | | | | | | | Floor [place], [place] | | | | | | [address] | | | | | | [phone] | | | +--------+---------+ + + + [...] PAPPAS | [address] | [place], [place] | | | [place] [facility] | [address] | [address] | | | TESTS | | | | + + + + + | AM[facility]-POINT OF CARE | [address] | [place], [place] | | | TESTS | [address] | [address] | | + + + + + documented in this encounter Visit Diagnoses + + | Diagnosis | + + | Urolithiasis - Primary Urinary calculus, unspecified | + + documented in this encounter"
--- OUTSIDE RECORDS SUMMARY | ~2019-09-05 | XMS | Encounter Summary ---
Demographics + + + | Address | [address] | | | [place] [address] | + + + | Home Phone [...] [place] | | | | | [address] | | + + + + + Care Team Providers + +------+ + | Care Transition Assistant Name | Role | Phone | + +------+ + | Tuan Chan MD | PCP | | + +------+ + Encounter Details +--------+ + + + + | Date | Type | Department | Care Team | Description | +--------+ + + + + | 06/02/ | Ancillary | Registration [address] | Noe Hdez, | | | 2007 | Registratio | Isaiah Hernandez | [address] | | | | n | [place] Mailcode: RPB07 | [place], [place] | | | | | [place], [place] | [address] | | | | | [address] | [phone] | | | | | [phone] | | | +--------+ + + + [...]
--- OUTSIDE RECORDS SUMMARY | ~2019-09-05 | XMS | Encounter Summary ---
Demographics + + + | Address | [address] | | | [place] [address] | + + + | Home Phone | | + + + | Preferred Language | Unknown | + + + | Marital Status | | + + + | Orthodox Affiliation | 1077 | + + + | Race | Unknown | + + + | Ethnic Group | Unknown | + + + Author + + + | Author | [facility] | | | and [place] | + + + | Organization | [facility] | | [...] [place] | | | | | [address] | | + + + + + | Najma Xiong | ECON | Unknown | | + + + + + | Hector Mack | ECON | [address] | | | | | [place] | | | | | [address] | | + + + + + Care Team Providers + +------+ + | Care Stage Set Designer Name | Role | Phone | + +------+ + PCP | Unavailable | + +------+ + Encounter Details +--------+ + + + + | Date | Type | Department | Care Team | Description | +--------+ + + + + | 10/18/ | Hospital | [facility] | | | | 1999 | Encounter | MED CTR EMERGENCY | | | | | | CENTER [address] | | | | | | [place] | | | | | | [address] | | | | | | [phone] | | | +--------+ + + + [...] [place] | | | | | | [id number] | | | | | | | | +--------+---------+ + + + documented as of this encounter Visit Diagnoses Not on filedocumented in this encounter"
--- OUTSIDE RECORDS SUMMARY | ~2019-09-05 | XMS | Encounter Summary ---
Demographics + + + | Address | [address] | | | [place] [address] | + + + | Home Phone [...] [place] | | | | | [address] | | + + + + + Care Team Providers + +------+ + | Care President Commercial Bank Name | Role | Phone | + +------+ + | Tuan Chan MD | PCP | | + +------+ + Encounter Details +--------+ + + + + | Date | Type | Department | Care Team | Description | +--------+ + + + + | 02/13/ | Wellness Program Coordinator | Urology Fertility | Renato Chow MD | Kidney stones | | 2010 | | [address] | | (Primary Dx) | | | | Mailcode: CH10U | | | | | | [facility] | | | | | | and Healing, | | | | | | Building [address] | | | | | | Floor [place], [place] | | | | | | [address] | | | | | | [phone] | | | +--------+ + + + [...]
--- OUTSIDE RECORDS SUMMARY | ~2019-09-05 | XMS | Encounter Summary ---
Demographics + + + | Address | [address] | | | [place] [address] | + + + | Home Phone | | + + + | Preferred Language | Unknown | + + + | Marital Status | | + + + | Voodoo Affiliation | 1077 | + + + | Race | Unknown | + + + | Ethnic Group | Unknown | + + + Author + + + | Author | [facility] | | | and [place] | + + + | Organization | and [facility] | | | and [place] [...] [place] | | | | | [address] | | + + + + + | Najma Xiong | ECON | Unknown | | + + + + + | Hector Mack | ECON | [address] | | | | | [place] | | | | | [address] | | + + + + + Care Team Providers + +------+ + | Care Phlebotomy Specialist Name | Role | Phone | + +------+ + PCP | Unavailable | + +------+ + Encounter Details +--------+ + + + + | Date | Type | Department | Care Team | Description | +--------+ + + + + | 05/11/ | Hospital | [facility] | Kike Constantino | | | 1996 | Encounter | MED CTR SLEEP | MD Aura [address] | | | | | [place] [address] | [address] [facility] | | | | | [place], [place] | [place] [address] | | | | | [address] | [phone] | | | | | [phone] | | | +--------+ + + + [...]
--- OUTSIDE RECORDS SUMMARY | ~2019-09-05 | XMS | Encounter Summary ---
Demographics + + + | Address | [address] | | | [place] [address] | + + + | Home Phone | | + + + | Preferred Language | Unknown | + + + | Marital Status | | + + + | Zoroastrian Affiliation | 1077 | + + + | Race | Unknown | + + + | Ethnic Group | Unknown | + + + Author + + + | Author | [facility] | | | and [place] | + + + | Organization | [facility] | [...] [address] | | | | | [place] | | | | | [address] | | + + + + + | Najma Xiong | ECON | Unknown | | + + + + + | Hector Mcak | ECON | [address] | | | | | [place] | | | | | [address] | | + + + + + Care Team Providers + +------+ + | Care Habitat Conservation Planner Name | Role | Phone | + +------+ + PCP | Unavailable | + +------+ + Encounter Details +--------+ + + + + | Date | Type | Department | Care Team | Description | +--------+ + + + + | 04/24/ | Hospital | [facility] | Conversion | Pain | | 2013 | Encounter | CONVERSION [address] | Transaction, | | | | | [address] | Provider Unknown | | | | | [place], [place] | | | | | | [address] | (Fax) | | | | | [phone] | | | +--------+ + + + [...] [place] | | | | | | [address] | | | | | | | | +--------+---------+ + + + documented as of this encounter Procedures + +--------+ + + + | Procedure Name | Priori | Date/Time | Associated Diagnosis | Comments | | | ty | | | | + +--------+ + + + | VAS CAROTID DUPLEX | Routin | 04/20/2012 | | Results for this | | BILATERAL | e | 3:14 AM | | procedure are in the | | | | PST | | results section. | + +--------+ + + + documented in this encounter Results VAS Carotid Duplex Bilateral (04/20/2012 3:14 AM PST) + + | Specimen | + + | | + + + + + | Narrative | Performed At | + + + | This is a non-reportable procedure without a radiologist report and | | | is used for image storage only | | + + + + + | Procedure Note | + + | Javier Gay - 11/13/2018 9:22 PM PDT This is a non-reportable procedure | | without a radiologist report and isused for image storage only | + + documented in this encounter Visit Diagnoses + + | Diagnosis | + + | Pain Generalized pain | + + documented in this encounter"
--- OUTSIDE RECORDS SUMMARY | ~2019-09-05 | XMS | Encounter Summary ---
Demographics + + + | Address | [address] | | | [place] [address] | + + + | Home Phone | | + + + | Preferred Language | Unknown | + + + | Marital Status | | + + + | Anglican Affiliation | 1077 | + + + | Race | Unknown | + + + | Ethnic Group | Unknown | + + + Author + + + | Author | [facility] | | | and [place] | + + + | Organization | [facility] | | [...] [place] | | | | | [address] | | + + + + + | Najma Xiong | ECON | Unknown | | + + + + + | Hector Mack | ECON | [address] | | | | | [place] | | | | | [address] | | + + + + + Care Team Providers + +------+ + | Care Gas Truck Driver Name | Role | Phone | + +------+ + | Tuan Chan MD | PCP | | + +------+ + Encounter Details +--------+ + + + + | Date | Type | Department | Care Team | Description | +--------+ + + + + | 01/03/ | Emergency | [facility] | Silas Maravilla | Cellulitis of chest | | 2018 | | HOSPITAL EMERGENCY | MD [address] | manzanita (Primary Dx) | | | | [place] [address] [address] | [facility] | | | | | [address] [place], [place] | [place] [address] | | | | | [address] | [phone] | | | | | [phone] | | | +--------+ + + + [...] + + + | Blood Pressure | 141/77 | 01/03/2018 10:01 AM | | | | | PDT | | + + + + + | Pulse | 65 | 01/03/2018 10:01 AM | | | | | PDT | | + + + + + | Temperature | 37.1 C (98.8 F) | 01/03/2018 9:30 AM | | | | | PDT | | + + + + + | Respiratory Rate | 20 | 01/03/2018 9:30 AM | | | | | PDT | | + + + + + | Oxygen Saturation | 97% | 01/03/2018 10:01 AM | | | | | PDT | | + + + + + | Inhaled Oxygen | - | - | | | Concentration | | | | + + + + + | Weight | 70.8 kg (156 lb) | 01/03/2018 9:30 AM | | | | | PDT | | + + + + + | Height | 162.6 cm (5' 4") | 01/03/2018 9:30 AM | | | | | PDT | | + + + + + | Body Mass Index | 26.78 | 01/03/2018 9:30 AM | | | | | PDT [...] + documented as of this encounter Discharge Instructions Instructions Silas Maravilla MD - 01/03/2018Use over the counter benadryl 25 mg ever y 6 hours for itching as well as topical hydrocortisone 1% cream Rx keflex as directed You are on some critical medications that should not be allowed to run out. Contact [facility] clinic as well as [facility] Friday to establish with a doctor. documented in this encounter Medications at Time of Discharge + + + +---------+ + + | Medication | Sig | Dispensed | Refills | Start | End Date | | | | | | Date | | + + + +---------+ + + | cephalexin | Take 1 capsule by | 28 | 0 | 01/04/20 | | | (KEFLEX) 500 mg | mouth 4 times daily | capsule | | 18 | 8 | | capsule | for 7 days. | | | | | + + [...] [place] | | | | | | [address] | | | | | | | | +--------+---------+ + + + + +------+--------+ + + | Name | Type | Priori | Associated Diagnoses | Date/Time | | | | ty | | | + +------+--------+ + + | ED INFORMATION | GIOVANI | Routin | | 01/03/2018 9:17 AM | | EXCHANGE | | e | | PDT | + +------+--------+ + + documented as of this encounter Procedures + +--------+ + + + | Procedure Name | Priori | Date/Time | Associated Diagnosis | Comments | | | ty | | | | + +--------+ + + + | ED INFORMATION | Routin | 01/03/2018 | | | | EXCHANGE | e | 9:17 AM | | | | | | PDT | | | + +--------+ + + + +---+--------+ | | | | | Proced | | | ure | | | Note - | | | Samuel, | | | Lab In | | | | | | Hlseve | | | n - | | | 01/03/ | | | 2017 | | | 9:18 | | | AM PDT | | | | | | Format [...] ON?/ | | | | | | 8 | | | 09:16? | | | ANTONIETTA- | | | BARNET | | | T, | | | GERMAINE | | | D?MRN: | | | | | | [id number] | | | [id number] | | | his | | | patien | | | [...] | | [id number] | | | 5c | | | Securi | | | [...] | | | system | | | .Recen | | | t | | | Emerge | | | ncy | | | Depart | | | ment | | | Visit | | | [place] | | | yAdmit | | | Date | | | Discha | | | rge | | | Date | | | Discha | | | rge | | | Dispos | | | ition | | | Facili | | | ty | | | City | | | State | | | Type | | | Major | | | Type | | | Diagno | | | ses or | | | Chief | | | | | | Compla | | | int | | | Oct 6, | | | 2018 | | | | | | [place] | | | a | | | Memori | | | al H. | | | [place] | | | [place] | | | Emerge | | | ncy | | | Emerge | | | ncy | | | Rash | | | Jose | | | 12, | | | 2018 | | | Jose | | | 12, | | | 2018 | | | Discha | | | rged | | | to | | | home | | | or | | | self | | | care | | | (routi | | | ne | | | discha | | | rge) | | | Aurelio | | | [...] | | | made | | | E.D. | | | Visit | | | Count | | | (12 | | | mo.)Fa | | | cility | | | | | | Visits | | | | | | [place] | | | a | | | Memori | | | al | | | Hospit | | | al 1 | | | [facility] | | | [facility] | | | | | | Hospit | | | al 1 | | | [facility] [place] | | | y | | | Hospit | | | al 4 | | | Total | | | 6 | | | Note: | | | [...] | | | St. | | | [place] | | | y | | | [...] | | | ing | | | care.C | | | riteri | | | a met | | | 5 | | | Visits | | | In 12 | | | | | | Months | | | 2 | | | Facili | | | ties | | | In 90 | | | | | | PDMPKn | | | own | | | Aliase | | | sNo | | | known | | | aliase | | | s. | | | PDMP | | | [...] N, MD | | | 2 0 Rx | | | | | | [place] | | | y (12 | | | Mo.)Me | | | tric | | | Count | | | CS | | | II-V | | | Rx 29 | | | CS-II | | | Rx 29 | | | Quanti | | | ty | | | Dispen | | | sed | | | 3,351 | | | Unique | | | | | | Prescr | | | ibers | | | 2 | | | Unique | | | | | | Pharma | | | cies 1 | | | | | | Benzos | | | 0 | | | Opioid | | | s 28 | | | Long | | | [...] + | Diagnosis | + + | Cellulitis of chest wall - Primary Cellulitis and abscess of trunk | + + documented in this encounter Administered Medications + + + +--------+------+------+ | Medication Order | MAR | Action | Dose | Rate | Site | | | Action | Date | | | | + + + +--------+------+------+ | cephalexin (KEFLEX) capsule (ED | Dispense | 01/04/20 | 500 mg | | | | prepack) 500 mg 500 mg, Oral, 4 | to Home | 18 10:06 | | | | | TIMES DAILY, First dose (after | | AM PDT | | | | | last modification) on 01/03/18 | | | | | | | at 1015, Dispense for home use., | | | | | | | Indications: SKIN AND SOFT | | | | | | | TISSUE ABSCESS | | | | | | + + + +--------+------+------+ +---+---+ | | | +---+---+ + + + +-------+---+---+ | diphenhydrAMINE (BENADRYL) | Dispense | 01/04/20 | 25 mg | | | | capsule (ED prepack) 25 mg 25 | to Home | 18 10:05 | | | | | mg, Oral, EVERY 6 HOURS PRN, | | AM PDT | | | | | Itching, Starting 01/03/18 at | | | | | | | 0944, Dispense for home use., | | | | | | + + + +-------+---+---+ +---+---+ | | | +---+---+ documented in this encounter
--- OUTSIDE RECORDS SUMMARY | ~2019-09-05 | XMS | Encounter Summary ---
Demographics + + + | Address | [address] | | | [place] [address] | + + + | Home Phone [...] [place] | | | | | [address] | | + + + + + Care Team Providers + +------+ + | Care Mds Rn Name | Role | Phone | + [...] 2005 | Registratio | [address] | [phone] | | | | n | [address] Mailcode: RPB07 | | | | | | [place], [place] | | | | | | [address] | | | | | | [phone] | | | +--------+ + + + [...]
--- OUTSIDE RECORDS SUMMARY | ~2019-09-05 | XMS | Encounter Summary ---
Demographics + + + | Address | [address] | | | [place] [address] | + + + | Home Phone [...] [place] | | | | | [address] | | + + + + + Care Team Providers + +------+ + | Care Automatic Fancy Machine Operator Name | Role | Phone | + +------+ + | Tuan Chan MD | PCP | | + +------+ + Encounter Details +--------+ + + + + | Date | Type | Department | Care Team | Description | +--------+ + + + + | 06/17/ | Results | Urology Adult | Noe Hdez, | | | 2007 | Only | [address] | [address] | | | | | Mailcode: CH10U | [place], [place] | | | | | [facility] | [address] | | | | | and Healing, | [phone] | | | | | | | | | | | Floor [place], [place] | | | | | | [address] | | | | | | [phone] | | | +--------+ + + + [...]
--- OUTSIDE RECORDS SUMMARY | ~2019-09-05 | XMS | Encounter Summary ---
Demographics + + + | Address | [address] | | | [place] [address] | + + + | Home Phone | | + + + | Preferred Language | Unknown | + + + | Marital Status | | + + + | Quaker Affiliation | 1077 | + + + | Race | Unknown | + + + | Ethnic Group | Unknown | + + + Author + + + | Author | [facility] | | | and [place] | + + + | Organization | [facility] | | | and [place] [...] [place] | | | | | [address] | | + + + + + | Najma Xiong | ECON | Unknown | | + + + + + | Hector Mack | ECON | [address] | | | | | [place] | | | | | [address] | | + + + + + Care Team Providers + +------+ + | Care Supervisor Hard Candy Name | Role | Phone | + +------+ + PCP | Unavailable | + +------+ + Encounter Details +--------+ + + + + | Date | Type | Department | Care Team | Description | +--------+ + + + + | 02/18/ | Hospital | [facility] | | | | 2004 | Encounter | MED CTR EMERGENCY | | | | | | CENTER [address] | | | | | | [place] | | | | | | [address] | | | | | | [phone] | | | +--------+ + + + [...] [place] | | | | | | [id number] | | | | | | | | +--------+---------+ + + + documented as of this encounter Visit Diagnoses Not on filedocumented in this encounter"
--- OUTSIDE RECORDS SUMMARY | ~2019-09-05 | XMS | Encounter Summary ---
Demographics + + + | Address | [address] | | | [place] [address] | + + + | Home Phone [...] [place] | | | | | [address] | | + + + + + Care Team Providers + +------+ + | Care Coffee Blender Name | Role | Phone | + [...] | | | | | | | [place], [place] | | | | | | | [address] | | | | | | | Phone: | | | | | | | [phone] | | | | | | | Fax: | | | | | | | [phone] | +--------+--------+ + + + + Encounter Details +--------+---------+ + + + | Date | Type | Department | Care Team | Description | +--------+---------+ + + + | 05/09/ | Office | Plastic and | Resident, Pls | Panniculitis | | 2008 | Visit | Reconstructive | [address] | (Primary Dx) | | | | Surgery at [facility] [address] | [place] [address] | | | | | [address] | | | | | | Mailcode: CH5P | | | | | | [facility] | | | | | | and Sonal, | | | | | | Building 1 | | | | | | Floor [place], [place] | | | | | | [address] | | | | | | [phone] | | | +--------+---------+ + + + [...] 1 Years of Education: N/A Occupational History [email or web address] Social History Main Topics Tobacco Use: Quit [...]
--- OUTSIDE RECORDS SUMMARY | ~2019-09-05 | XMS | Encounter Summary ---
Demographics + + + | Address | [address] | | | [place] [address] | + + + | Home Phone [...] + + + | Author | [facility] | + + + | Organization | [facility] | + + + | Address | Unknown | + + + | Phone | Unavailable | + + + Support + + + + + | Name | Relationship | Address | Phone | + + + + + | Hector Mack | ECON | [address] | | | | | [place] | | | | | [address] | | + + + + + Care Team Providers + +------+ + | Care Veterans Service Representative Name | Role | Phone | + +------+ + | Tuan Chan MD | PCP | | + +------+ + Encounter Details +--------+ + + + + | Date | Type | Department | Care Team | Description | +--------+ + + + + | 02/13/ | Terrazzo Tile Setter | Urology Fertility | Renato Chow MD | Kidney stones | | 2010 | | [address] | | (Primary Dx) | | | | Mailcode: CH10U | | | | | | [facility] | | | | | | and Healing, | | | | | | [address] | | | | | | Floor [place], [place] | | | | | | [address] | | | | | | [phone] | | | +--------+ + + + [...]
--- OUTSIDE RECORDS SUMMARY | ~2019-09-05 | XMS | Encounter Summary ---
Demographics + + + | Address | [address] | | | [place] [address] | + + + | Home Phone [...] Author | [facility] | | | and [place] | + + + | Organization | [facility] | | [...] [place] | | | | | [address] | | + + + + + | Najma Xiong | ECON | Unknown | | + + + + + | Hector Mack | ECON | [address] | | | | | [place] | | | | | [address] | | + + + + + Care Team Providers + +------+ + | Care Photostat Operator Helper Name | Role | Phone | + +------+ + PCP | Unavailable | + +------+ + Encounter Details +--------+ + + + + | Date | Type | Department | Care Team | Description | +--------+ + + + + | 07/26/ | Hospital | [facility] | | | | 1996 | Encounter | MED CTR EMERGENCY | | | | | | CENTER [address] | | | | | | [place] | | | | | | [address] | | | | | | [phone] | | | +--------+ + + + [...] [place] | | | | | | [id number] | | | | | | | | +--------+---------+ + + + documented as of this encounter Visit Diagnoses Not on filedocumented in this encounter"
--- OUTSIDE RECORDS SUMMARY | ~2019-09-05 | XMS | Encounter Summary ---
Demographics + + + | Address | [address] | | | [place] [address] | + + + | Home Phone [...] [place] | | | | | [address] | | + + + + + Care Team Providers + +------+ + | Care Program Support Specialist Name | Role | Phone | [...] as of this encounter Progress Notes Interface, Welding Machine Operator Helper Gas In - 05/24/2005 2:07 AM [facility] [id number] 05/23/2005 05/23/2005 [id number] ARETHA RAE [place] [address] [place] [address] or May 23, 2005 Bryan Garza M.D. [address] [place] [address] RE: GERMAINE CARIAS MR #: [id number] Dear Dr. Garza: I saw your patient, Mrs. Germaine Carias in my office on , May 23, 2005. I went over her records and those of Dr. Walker in [place]. This pleasant, obese, 59-year-old female has a [...] junction. Dilation was performed up to a 20-Pakistani Microvasive balloon, and the patient claims that [...] is unemployed. She smoked, has about a [id number] smoking history but has not smoked in [...] Sincerely, Wes Wolff M.D. Ren / PASCUAL [id number] / [id number] / [id number] / cc: Lalo Walker M.D. [facility] [address] [place] [id number] documented i n this encounter Plan of Treatment Not on filedocumented as of this encounter Visit Diagnoses Not on filedocumented in this encounter"
--- OUTSIDE RECORDS SUMMARY | ~2019-09-05 | XMS | Encounter Summary ---
Demographics + + + | Address | [address] | | | [place] [address] | + + + | Home Phone | | + + + | Preferred Language | Unknown | + + + | Marital Status | | + + + | Adventism Affiliation | 1077 | + + + | Race | Unknown | + + + | Ethnic Group | Unknown | + + + Author + + + | Author | [facility] | | | and [place] | + + + | Organization | [facility] | | | and [place] | [...] [place] | | | | | [address] | | + + + + + | Najma Xiong | ECON | Unknown | | + + + + + | Hector Mack | ECON | [address] | | | | | [place] | | | | | [address] | | + + + + + Care Team Providers + +------+ + | Care Medical Coordinator Pesticide Use Name | Role | Phone | + +------+ + | Tuan Chan MD | PCP | | + +------+ + Encounter Details +--------+---------+ + + + | Date | Type | Department | Care Team | Description | +--------+---------+ + + + | 06/10/ | Surgery | [facility] | Leandra Chávez, | CV DIAGNOSTIC | | 2016 | | MED CTR CV INTRA OP | MD [address] | CARDIAC CATH | | | | [address] | [place] | | | | | [place], [place] | [address] | | | | | [address] | | | | | | [phone] | | | +--------+---------+ + + + [...] angina . She was transferred from [facility] with ongoing chest pain. Today at lunch time she developed chest discomfort. She was preparing lunch at the time. T he discomfort was sharp and stabbing. She was transferred from [facility] on NTG and heparin. The transfer took about 8 hours. The pain has not gone away. She was started on NTG drip a nd heparin. NTG was titrated up. She arrived here on 30 mcg/ min. She still had 4/10 pain . She had no acute ECG changes. She had some dyspnea and diaphoresis no radiation. She was taken to the [facility] due to ongoing chest pain: PROCEDURES PERFORMED: [...] was performed in multiple views using 6 Bermudian JL5 and 5 F AL1 and an JSEUS diagnostic catheters. A 5 frenc h pigtail [...] medication that helps the stomach empty better. 8511-6731 The [employer]. [address] [place] [address], [place] [address]. All righ ts reserved. This information is [...] [place] | | | | | | [address] | | | | | | | [...] PROVIDER: | | | Tuan Chan MD NURSING SCHEDULER: Dr. Leandra Chávez MD, | | | [facility], [facility] PRE-PROCEDURE DIAGNOSIS: Unstable Angina | [...] multiple views | | | using 6 Bermudian JL5 and 5 F AL1 and an JESUS diagnostic catheters. | | | A 5 chilean pigtail catheter was advanced into the left [...] Leandra Chávez MD, FACC, | | | [facility] DATE/TIME: 06/12/2015 0:27 | | | 06/12/2015 0:27 Portions of this chart were created with [employer] | | | voice recognition software. Occasional [...] [address] | [place] | [phone] | | [facility] | | [address] | | | - LABORATORY | | [...] | | | | ERWIN MORALES MD ([id number]) | | | | | | on [...] + | [address] | [address] | [place] | [phone] | | [facility] | | [address] | | | - LABORATORY | | [...] [address] | [place] | [phone] | | [facility] | | [address] | | | - LABORATORY | | [...] 7 | 7 - 18 mg/dL | [facility] | | | | | | [facility] | | | | | | MEDICAL | | | | | | CENTER - | | | | | | LABORATORY | | + + + + + + | Creatinine | 0.57 (L) | 0.60 - 1.30 | [facility] | | | | | mg/dL | [facility] | | | | | | MEDICAL | | | | | | CENTER - | | | | | | LABORATORY | | + + + + + + | eGFR if not | >60Comment: GLOMERULAR | >=60 | [facility] | | | | FILTRATION | mL/min/1.73m2 | [facility] | | | PALESTINIAN | RATE,ESTIMATED | | MEDICAL | | | | mL/min/1.01x5Qrwq than | | CENTER - | | [...] [address] | [place] | [phone] | | [facility] | | [address] | | | - LABORATORY | | [...] + | [facility] | [address] | [place] | [phone] | | [facility] | | [address] | | | - LABORATORY | | [...] | | | | | | [employer] | | | | | [...] [address] | [place] | [phone] | | [facility] | | [address] | | | - LABORATORY | | [...] [address] | [place] | [phone] | | [facility] | | [address] | | | - LABORATORY | | | | + + + + + documented in this encounter Visit Diagnoses Not on filedocumented in this encounter
--- OUTSIDE RECORDS SUMMARY | ~2019-09-05 | XMS | Encounter Summary ---
Demographics + + + | Address | [address] | | | [place] [address] | + + + | Home Phone | | + + + | Preferred Language | Unknown | + + + | Marital Status | | + + + | Sabianist Affiliation | 1077 | + + + | Race | Unknown | + + + | Ethnic Group | Unknown | + + + Author + + + | Author | [facility] | | | and [place] | + + + | Organization | [facility] | | | and [place] [...] [place] | | | | | [address] | | + + + + + | Najma Xiong | ECON | Unknown | | + + + + + | Hector Mack | ECON | [address] | | | | | [place] | | | | | [address] | | + + + + + Care Team Providers + +------+ + | Care Parts Casting Machine Operator Name | Role | Phone | + +------+ + PCP | Unavailable | + +------+ + Encounter Details +--------+ + + + + | Date | Type | Department | Care Team | Description | +--------+ + + + + | 05/11/ | Hospital | [facility] | Kike Constantino | | | 1996 | Encounter | MED CTR SLEEP | MD Aura [address] | | | | | [place] [address] | [facility] | | | | | [place], [place] | [place] [address] | | | | | [address] | [phone] | | | | | [phone] | | | +--------+ + + + [...]
--- OUTSIDE RECORDS SUMMARY | ~2019-09-05 | XMS | Encounter Summary ---
Demographics + + + | Address | [address] | | | [place] [address] | + + + | Home Phone | | + + + | Preferred Language | Unknown | + + + | Marital Status | | + + + | Cheondoism Affiliation | 1077 | + + + | Race | Unknown | + + + | Ethnic Group | Unknown | + + + Author + + + | Author | [facility] | | | and [place] | + + + | Organization | [facility] [...] [place] | | | | | [address] | | + + + + + | Najma Xiong | ECON | Unknown | | + + + + + | Hector Mack | ECON | [address] | | | | | [place] | | | | | [address] | | + + + + + Care Team Providers + +------+ + | Care Rheologist Name | Role | Phone | + +------+ + | Tuan Chan MD | PCP | | + +------+ + Encounter Details +--------+ + + + + | Date | Type | Department | Care Team | Description | +--------+ + + + + | 05/18/ | Hospital | [facility] | Oralia Koo | | | 2019 | Encounter | HOSPITAL GROUND | MD [address] | | | | | [facility] [address] | [facility] | | | | | [address] | [place] [address] | | | | | [place], [place] | [phone] | | | | | [address] | | | | | | [phone] | | | +--------+ + + + [...] | 0 | 02/22/20 | | | (LIPITOR) 40 mg | [...] | 2020 | Visit | | [address] | | | | | | [place] | | | | | | [address] | | | | | | | | +--------+---------+ + + + documented as of this encounter Visit Diagnoses Not on filedocumented in this encounter"
--- OUTSIDE RECORDS SUMMARY | ~2019-09-05 | XMS | Encounter Summary ---
Demographics + + + | Address | [address] | | | [place] [address] | + + + | Home Phone | | + + + | Preferred Language | Unknown | + + + | Marital Status | | + + + | Sabianism Affiliation | PRO | + + + [...] [place] | | | | | [address] | | + + + + + Care Team Providers + +------+ + | Care Vegetable Canner Name | Role | Phone | + [...] Isaiah | | | | | at [facility] | [facility] | | | | | [address] | [place] [address] | | | | | [address] | | | | | | [place], [address] [place] [address] | | | | | | [place], [place] | | | | | | [address] | | | | | | [phone] | | | +--------+ + + + [...] view image for the detailed interpretation from [facility] results. | CARDIOLOGY | + + + + + + + + | Performing | Address | City/State/Zipcode | Phone Number | | Organization | | | | + + + + + | [facility] | [address] | [place], [place] | | | CARDIOLOGY | [facility] | [address] | | + + + + + documented in this encounter Visit Diagnoses Not on filedocumented in this encounter"
--- OUTSIDE RECORDS SUMMARY | ~2019-09-05 | XMS | Encounter Summary ---
Demographics + + + | Address | [address] | | | [place] [address] | + + + | Home Phone [...] 13 | | | | | [place] | | | | | [address] | | + + + + + Care Team Providers + +------+ + | Care Tappet Adjuster Name | Role | Phone | [...] [address] | | | | | | [place], [place] | | | | | | [address] | | | | | | [phone] | | | +--------+------+ + + + [...] + + documented in this encounter Results [facility] - BASIC METABOLIC SET (03/11/2011 5:13 PM [...] + + + | Test performed by: [facility] | [facility] | | Outpatient Lab CH[address], [place] [address] | DEPARTMENT OF | | | PATHOLOGY | + + + + + + + + | Performing | Address | City/State/Zipcode | Phone Number | | Organization | | | | + + + + + | [facility] | [address] | [place] [address] | | | PATHOLOGY | [address] [...] + + + | Test performed by: [facility] | [facility] | | Outpatient Lab CH3L [address], [place] [address] | DEPARTMENT OF | | Sent to Core Lab. | PATHOLOGY | + + + + + + + + | Performing | Address | City/State/Zipcode | Phone Number | | Organization | | | | + + + + + | [facility] DEPART[facility] | [address] | [place] [address] | | | PATHOLOGY | [address] | | | + + + + + documented in this encounter Visit Diagnoses + + | Diagnosis | + + | Kidney stone Calculus of kidney | + + documented in this encounter"
--- OUTSIDE RECORDS SUMMARY | ~2019-09-05 | XMS | Encounter Summary ---
Demographics + + + | Address | [address] | | | [place] [address] | + + + | Home Phone | | + + + | Preferred Language | Unknown | + + + | Marital Status | | + + + | Rastafarian Affiliation | PRO | + + + [...] [place] | | | | | [address] | | + + + + + Care Team Providers + +------+ + | Care Oxygen Therapist Name | Role | Phone | + [...] | | | | Mailcode: CH10U | [place], [place] | | | | | [facility] | [address] | | | | | and Healing, | [phone] | | | | | [facility] | | | | | | Floor [place], [place] | | | | | | [address] | | | | | | [phone] | | | +--------+---------+ + + + [...] Resident Division of Urology and Renal Transplantation Counts Include [address] [facility] [place] [facility] oe Hdez - 10/19/2007 1:51 PM PDTI [...] | | | | | | Resulted: 10/21/07 | | | | | | RLB (Airport | | | | | | Way Lab) | | | | | | [facility] | | | | | | [address] [address] | | | | | | [address] | | | | | | [place], [place] | | | | | | [id number]: Test | | | | | | performed at [place] | | | | | | [facility] | | | | | | Laboratory. | | | | + + + + + + + + | Specimen | + + | Urine - Urine | + + + + + + + | Performing | Address | City/State/Zipcode | Phone Number | | Organization | | | | + + + + + | [facility] | [address] | [place] [address] | | | LAB-MICRO | | | [...] [facility] | [address] | [place], [place] | | | [place] POINT OF CARE | [address] | [address] | | | TESTS | | | | + + + + + | [facility] | [address] | [place], [place] | | | TESTS | [address] | [address] | | + + + + + documented in this encounter Visit Diagnoses + + | Diagnosis | + + | Urolithiasis - Primary Urinary calculus, unspecified | + + documented in this encounter"
--- OUTSIDE RECORDS SUMMARY | ~2019-09-05 | XMS | Encounter Summary ---
Demographics + + + | Address | [address] | | | [place] [address] | + + + | Home Phone [...] | Organization | [facility] | [...] [place] | | | | | [address] | | + + + + + | Najma Xiong | ECON | Unknown | | + + + + + | Hector Mack | ECON | [address] | | | | | [place] | | | | | [address] | | + + + + + Care Team Providers + +------+ + | Care Professor Of Environmental Engineering Name | Role | Phone | + +------+ + | Tuan Chan MD | PCP | | + +------+ + Encounter Details +--------+ + + + + | Date | Type | Department | Care Team | Description | +--------+ + + + + | 09/02/ | Hospital | [facility] | Tuan Chan, | | | 2016 | Encounter | HOSPITAL XRAY 900 | [address] [facility] | | | | | [place] | [facility], [place] | | | | | [facility], [place] | [address] | | | | | [address] | [phone] | | | | | [phone] | | | +--------+ + + + [...] [place] | | | | | | [address] | | | | | | | [...] multiple projections | | | show near brfp-dk-cwhl articulation of the medial compartment. | | [...] Dexa scan evaluation is recommended. JOB #: [id number] | | | Digitally Released by: Wayne [...] | Films in multiple projections show near emux-ed-lflm articulation of the | | medial compartment. [...] | | | | | JOB #: [id number] | | Digitally Released by: Wayne Moraes | | | | | | Read By: WAYNE MORAES MD | | Date: 09/02/2016 16:10 | | | + + documented in this encounter Visit Diagnoses Not on filedocumented in this encounter"
--- OUTSIDE RECORDS SUMMARY | ~2019-09-05 | XMS | Encounter Summary ---
Demographics + + + | Address | [address] | | | [place] [address] | + + + | Home Phone [...] [place] | | | | | [address] | | + + + + + Care Team Providers + +------+ + | Care Refiner Operator Name | Role | Phone | [...] | Activity | [address] | [address] | | | | | [address] Mailcode: RPB07 | [place], [place] | | | | | [place], [place] | [address] | | | | | [address] | [phone] | | | | | [phone] | | | +--------+ + + + [...]
--- OUTSIDE RECORDS SUMMARY | ~2019-09-05 | XMS | Encounter Summary ---
Demographics + + + | Address | [address] | | | [place] [address] | + + + | Home Phone [...] + | Organization | [facility] | | | and [...] [place] | | | | | [address] | | + + + + + | Najma Xiong | ECON | Unknown | | + + + + + | Hector Mack | ECON | [address] | | | | | [place] | | | | | [address] | | + + + + + Care Team Providers + +------+ + | Care Search And Rescue Officer Name | Role | Phone | + +------+ + PCP | Unavailable | + +------+ + Encounter Details +--------+ + + + + | Date | Type | Department | Care Team | Description | +--------+ + + + + | 05/17/ | Hospital | [facility] | | | | 1993 | Encounter | MED CTR EMERGENCY | | | | | | CENTER [address] | | | | | | [place] | | | | | | [address] | | | | | | [phone] | | | +--------+ + + + [...] [place] | | | | | | [id number] | | | | | | | | +--------+---------+ + + + documented as of this encounter Visit Diagnoses Not on filedocumented in this encounter"
--- OUTSIDE RECORDS SUMMARY | ~2019-09-05 | XMS | Encounter Summary ---
Demographics + + + | Address | [address] | | | [place] [address] | + + + | Home Phone | | + + + | Preferred Language | Unknown | + + + | Marital Status | | + + + | Yarsanism Affiliation | 1077 | + + + | Race | Unknown | + + + | Ethnic Group | Unknown | + + + Author + + + | Author | [facility] | | | and [place] | + + + | Organization | [facility] | | | and [place] [...] [place] | | | | | [address] | | + + + + + | Najma Xiong | ECON | Unknown | | + + + + + | Hector Mack | ECON | [address] | | | | | [place] | | | | | [address] | | + + + + + Care Team Providers + +------+ + | Care Talent Recruiter Name | Role | Phone | + +------+ + PCP | Unavailable | + +------+ + Encounter Details +--------+ + + + + | Date | Type | Department | Care Team | Description | +--------+ + + + + | 04/27/ | Hospital | [facility] | | | | 1997 - | Encounter | MED CTR CARDIAC | | | | | | SERVICES [address] | | | | 06/16/ | | [address], | | | | 1998 | | [place] [address] | | | +--------+ + + + [...] [place] | | | | | | [address] | | | | | | | | +--------+---------+ + + + documented as of this encounter Visit Diagnoses Not on filedocumented in this encounter"
--- OUTSIDE RECORDS SUMMARY | ~2019-09-05 | XMS | Encounter Summary ---
Demographics + + + | Address | [address] | | | [place] [address] | + + + | Home Phone [...] [facility] | | | and [...] [place] | | | | | [address] | | + + + + + | Najma Xiong | ECON | Unknown | | + + + + + | Hector Mack | ECON | [address] | | | | | [place] | | | | | [address] | | + + + + + Care Team Providers + +------+ + | Care Information Technology Account Manager Name | Role | Phone | + +------+ + PCP | Unavailable | + +------+ + Encounter Details +--------+ + + + + | Date | Type | Department | Care Team | Description | +--------+ + + + + | 04/27/ | Hospital | [facility] | | | | 1997 - | Encounter | MED CTR CARDIAC | | | | | | SERVICES [address] | | | | 06/16/ | | [address], | | | | 1998 | | [place] [address] | | | +--------+ + + + [...] [place] | | | | | | [address] | | | | | | | | +--------+---------+ + + + documented as of this encounter Visit Diagnoses Not on filedocumented in this encounter"
--- OUTSIDE RECORDS SUMMARY | ~2019-09-05 | XMS | Encounter Summary ---
Demographics + + + | Address | [address] | | | [place] [address] | + + + | Home Phone [...] [place] | | | | | [address] | | + + + + + Care Team Providers + +------+ + | Care Truck Guard Name | Role | Phone | + [...] | | | | Mailcode: CH10U | [place], [place] | | | | | [facility] | [address] | | | | | and Healing, | [phone] | | | | | | | | | | | Floor [place], [place] | | | | | | [address] | | | | | | [phone] | | | +--------+---------+ + + + [...] [facility] | [address] | [place], [place] | | | [place] POINT OF CARE | [address] | [address] | | | TESTS | | | | + + + + + | [facility] | [address] | [place], [place] | | | TESTS | [address] | [address] | | + + + + + documented in this encounter Visit Diagnoses + + | Diagnosis | + + | Urolithiasis - Primary Urinary calculus, unspecified | + + documented in this encounter"
--- OUTSIDE RECORDS SUMMARY | ~2019-09-05 | XMS | Encounter Summary ---
Demographics + + + | Address | [address] | | | [place] [address] | + + + | Home Phone | | + + + | Preferred Language | Unknown | + + + | Marital Status | | + + + | Yarsanism Affiliation | 1077 | + + + | Race | Unknown | + + + | Ethnic Group | Unknown | + + + Author + + + | Author | [facility] | | | and [place] | + + + | Organization | [facility] | | | and [place] [...] [place] | | | | | [address] | | + + + + + | Najma Xiong | ECON | Unknown | | + + + + + | Hector Mack | ECON | [address] | | | | | [place] | | | | | [address] | | + + + + + Care Team Providers + +------+ + | Care Tsa Screener Name | Role | Phone | + +------+ + PCP | Unavailable | + +------+ + Encounter Details +--------+ + + + + | Date | Type | Department | Care Team | Description | +--------+ + + + + | 07/15/ | Hospital | [facility] | Rina Diaz MD | | | 2003 - | [facility] | [address] | | | | | INTENSIVE CARE UNIT | [place] [address] | | | 07/16/ | | [address] | [phone] | | | 2003 | | [place], [place] | | | | | | [address] | | | | | | [phone] | | | +--------+ + + + [...]
--- OUTSIDE RECORDS SUMMARY | ~2019-09-05 | XMS | Encounter Summary ---
Demographics + + + | Address | [address] | | | [place] [address] | + + + | Home Phone [...] [place] | | | | | [address] | | + + + + + Care Team Providers + +------+ + | Care Financial Compliance Officer Name | Role | Phone | [...] | 2008 | Visit | Medical at [facility] [address] | [address] | (Primary Dx); | | | | [address] | [address] [place], | Encounter for | | | | Mailcode: CH16D | [place] [address] | Long-Term (Current) | | | | [facility] | [phone] | Use of Other | | | | and Healing, | | Medications | | | | | | | | | | Floor [facility] [place] | | | | | | [address] | | | | | | [phone] | | | +--------+---------+ + + + [...] in 06/06 --s/p CABG in 2000 in [facility] --s/p cholecystectomy 35 years ago --s/p appy [...] month Julia Buckley PA-C Department of Dermatology [facility] documented in this encounter Plan of Treatment Not on filedocumented as of this encounter Visit Diagnoses + + | Diagnosis | + + | 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
--- OUTSIDE RECORDS SUMMARY | ~2019-09-05 | XMS | Encounter Summary ---
Demographics + + + | Address | [address] | | | [place] [address] | + + + | Home Phone | | + + + | Preferred Language | Unknown | + + + | Marital Status | | + + + | Anglican Affiliation | 1077 | + + + | Race | Unknown | + + + | Ethnic Group | Unknown | + + + Author + + + | Author | [facility] | | | and [place] | + + + | Organization | [facility] [...] [place] | | | | | [address] | | + + + + + | Najma Xiong | ECON | Unknown | | + + + + + | Hector Mack | ECON | [address] | | | | | [place] | | | | | [address] | | + + + + + Care Team Providers + +------+ + | Care Investigation Lieutenant Name | Role | Phone | + +------+ + | Satinder Samson MD | PCP | | + +------+ + Encounter Details +--------+--------+ + + + | Date | Type | Department | Care Team | Description | +--------+--------+ + + + | 07/25/ | Intake | [facility] | | N/A | | 2019 | | [place] [address] | | | | | | [facility] | | | | | | [place], [place] | | | | | | [address] | | | | | | [phone] | | | +--------+--------+ + + + Social History + +-------+ [...] [place] | | | | | | [address] | | | | | | | | +--------+---------+ + + + documented as of this encounter Visit Diagnoses Not on filedocumented in this encounter"
--- OUTSIDE RECORDS SUMMARY | ~2019-09-05 | XMS | Encounter Summary ---
Demographics + + + | Address | [address] | | | [place] [address] | + + + | Home Phone [...] [place] | | | | | [address] | | + + + + + Care Team Providers + +------+ + | Care Air Box Tester Name | Role | Phone | [...] n | Eugenio Mailcode: RPB07 | [place], | | | | | [place], [place] | [place] [address] | | | | | [address] | [phone] | | | | | [phone] | | | +--------+ + + + [...]
--- OUTSIDE RECORDS SUMMARY | ~2019-09-05 | XMS | Encounter Summary ---
Demographics + + + | Address | [address] | | | [place] [address] | + + + | Home Phone [...] + | Author | [facility] | | | and [place] | + + + | Organization | [facility] [...] [place] | | | | | [address] | | + + + + + | Najma Xiong | ECON | Unknown | | + + + + + | Hector Mack | ECON | [address] | | | | | [place] | | | | | [address] | | + + + + + Care Team Providers + +------+ + | Care Commercial Real Estate Assistant Name | Role | Phone | + +------+ + PCP | Unavailable | + +------+ + Encounter Details +--------+ + + + + | Date | Type | Department | Care Team | Description | +--------+ + + + + | 12/26/ | Hospital | [facility] | | | | 1991 | Encounter | MED CTR LABORATORY | | | | | | [address] | | | | | | [place] | | | | | | [address] | | | | | | [phone] | | | +--------+ + + + [...] [place] | | | | | | [id number] | | | | | | | | +--------+---------+ + + + documented as of this encounter Visit Diagnoses Not on filedocumented in this encounter"
--- OUTSIDE RECORDS SUMMARY | ~2019-09-05 | XMS | Encounter Summary ---
Demographics + + + | Address | [address] | | | [place] [address] | + + + | Home Phone [...] [place] | | | | | [address] | | + + + + + Care Team Providers + +------+ + | Care Injection Mold Tooling Technician Name | Role | Phone | [...] | | Loop Mailcode: | [address] [place], | | | | | [address] Physician's | [place] [address] | | | | | [address] | [phone] | | | | | [place], [place] | | | | | | [address] | | | | | | [phone] | | | +--------+---------+ + + + [...] cardiac problems. She smoked, has about a 49-bvhi-lvkm smoking history but has not smoked in [...]
--- OUTSIDE RECORDS SUMMARY | ~2019-09-05 | XMS | Encounter Summary ---
Demographics + + + | Address | [address] | | | [place] [address] | + + + | Home Phone [...] Author | [facility] | | | and [place] | + + + | Organization | [facility] | [...] [place] | | | | | [address] | | + + + + + | Najma Xiong | ECON | Unknown | | + + + + + | Hector Mack | ECON | [address] | | | | | [place] | | | | | [address] | | + + + + + Care Team Providers + +------+ + | Care Vp Of Digital Marketing Name | Role | Phone | + +------+ + PCP | Unavailable | + +------+ + Encounter Details +--------+ + + + + | Date | Type | Department | Care Team | Description | +--------+ + + + + | 07/15/ | Hospital | [facility] | Rina Diaz MD | | | 2003 - | [facility] [place] | [address] | | | | | INTENSIVE CARE UNIT | [place] [address] | | | 07/16/ | | [address] | [phone] | | | 2003 | | [place], [place] | | | | | | [address] | | | | | | [phone] | | | +--------+ + + + [...]
--- OUTSIDE RECORDS SUMMARY | ~2019-09-05 | XMS | Encounter Summary ---
Demographics + + + | Address | [address] | | | [place] [address] | + + + | Home Phone [...] + | Organization | [facility] | | | and [place] [...] [place] | | | | | [address] | | + + + + + | Najma Xiong | ECON | Unknown | | + + + + + | Hector Mack | ECON | [address] | | | | | [place] | | | | | [address] | | + + + + + Care Team Providers + +------+ + | Care Casing Man Name | Role | Phone | + +------+ + PCP | Unavailable | + +------+ + Encounter Details +--------+ + + + + | Date | Type | Department | Care Team | Description | +--------+ + + + + | 11/12/ | [facility] | [facility] | Lalo Londono MD | | | 2004 | Encounter | MED CTR GENERIC OP | [address], [place] | | | | | CONV DEPT [address] | [address] [place], [place] | | | | | [address] [place], | [address] | | | | | [place] [address] | | | | | | [phone] | | | +--------+ + + + [...] 2020 | Visit | | [address] | | | | | | A [place] | | | | | | [address] | | | | | | | | +--------+---------+ + + + documented as of this encounter Visit Diagnoses Not on filedocumented in this encounter"
--- OUTSIDE RECORDS SUMMARY | ~2019-09-05 | XMS | Encounter Summary ---
Demographics + + + | Address | [address] | | | [place] [address] | + + + | Home Phone | | + + + | Preferred Language | Unknown | + + + | Marital Status | | + + + | Anabaptism Affiliation | 1077 | + + + | Race | Unknown | + + + | Ethnic Group | Unknown | + + + Author + + + | Author | [facility] | | | and [place] | + + + | Organization | [facility] | | | and [place] [...] [place] | | | | | [address] | | + + + + + | Najma Xiong | ECON | Unknown | | + + + + + | Hector Mack | ECON | [address] | | | | | [place] | | | | | [address] | | + + + + + Care Team Providers + +------+ + | Care System Development Engineer Name | Role | Phone | + +------+ + | Tuan Chan MD | PCP | | + +------+ + Encounter Details +--------+ + + + + | Date | Type | Department | Care Team | Description | +--------+ + + + + | 11/02/ | Orders Only | [facility] | Provider, | | | 2019 | | SYSTEM GENERIC OP | [address] | | | | | CONVERSION [address] | [address]. [place]ER | | | | | [address] [place], [place] | [place] [address] | | | | | [address] | | | | | | [phone] | | | +--------+ + + + [...] [place] | | | | | | [address] | | | | | | | | +--------+---------+ + + + documented as of this encounter Visit Diagnoses Not on filedocumented in this encounter"
--- OUTSIDE RECORDS SUMMARY | ~2019-09-05 | XMS | Encounter Summary ---
Demographics + + + | Address | [address] | | | [place] [address] | + + + | Home Phone [...] [place] | | | | | [address] | | + + + + + Care Team Providers + +------+ + | Care Automobile Tester Name | Role | Phone | [...] Hernia of | Aysha Crow | s [address] | | | | | unspecified | [address] | [address]ir | | | | | site of | [address] | [facility] | | | | | abdominal | [place], [place] | Hospital, | | | | | cavity | [address] | 10th Floor | | | | | without | | [place], [place] | | | | | mention of | | [address] | | | | | obstruction | | Phone: | | | | | or gangrene | | [phone] | | | | | Procedures | | Fax: | | | | | CT ABDOMEN | | [phone] | | | | | WWO CONTRAST | | | | | | | LTD | | | +--------+--------+ + + + + Encounter Details +--------+ + + + + | Date | Type | Department | Care Team | Description | +--------+ + + + + | 08/05/ | Hospital | Radiology/Imaging | | | | 2008 | Encounter | Lab at [facility] [address] | | | | | [address] Mailcode: | | | | | | [facility] | [facility], | | | | | | Building | | | | | | Floor [place], [place] | | | | | | [address] | | | | | | [phone] | | | +--------+ + + + [...]
--- OUTSIDE RECORDS SUMMARY | ~2019-09-05 | XMS | Encounter Summary ---
Demographics + + + | Address | [address] | | | [place] [address] | + + + | Home Phone [...] [place] | | | | | [address] | | + + + + + Care Team Providers + +------+ + | Care Hourly Shift Manager Name | Role | Phone | [...] Procedure Note | + + | Interface, Scrum Master In - 02/05/2006 12:00 AM PST | | [id number] | | [id number] [place] GERMAINE [id number] | | | | Date: 02/05/2006 | | | | Attending Surgeon: Papi Johnson M.D. | | | | Project Manager/Team Coach(s): Darrel Dunn M.D. | | | | [...] | | DS / HS | | [id number] / [id number] / [id number] / [id number] | | | | | | | | | | | | Reviewed or Edited By Darrel Dunn MD on 05-29-2006 | | Electronically signed by Papi Johnson 05-29-2006 11:17:53 AM | | | | | + + + + | Transcriptions | + + | Interface, Scrum Master In - 02/20/2006 2:34 AM PST | | [id number] | | [id number] ARETHA HERRON [id number] | | | | Date: 02/05/2006 | | | | Attending Surgeon: Herberth Ayala M.D. | | | | Project Manager/Team Coach(s): Darrel Dunn M.D. | | | | [...] | | | RWO / | | [id number] / [id number] / [id number] / [id number] | | | | | | | | | | | | Electronically signed by Herberth Brambila 02-19-2006 11:24:19 AM | + + documented in this encounter Visit Diagnoses Not on filedocumented in this encounter"
--- OUTSIDE RECORDS SUMMARY | ~2019-09-05 | XMS | Encounter Summary ---
Demographics + + + | Address | [address] | | | [place] [address] | + + + | Home Phone [...] | Author | [facility] | | | and [place] | + + + | Organization | [facility] | | [...] [place] | | | | | [address] | | + + + + + | Najma Xiong | ECON | Unknown | | + + + + + | Hector Mack | ECON | [address] | | | | | [place] | | | | | [address] | | + + + + + Care Team Providers + +------+ + | Care Special Education Instructor Name | Role | Phone | + +------+ + PCP | Unavailable | + +------+ + Encounter Details +--------+ + + + + | Date | Type | Department | Care Team | Description | +--------+ + + + + | 11/10/ | Hospital | [facility] | Oralia Quinonez | | | 2011 | Encounter | HOSPITAL GROUND | [address] | | | | | [address] | [address] [place], | | | | | [address] | [place] [address] | | | | | [place], [place] | [phone] | | | | | [address] | | | | | | [phone] | | | +--------+ + + + [...]
--- OUTSIDE RECORDS SUMMARY | ~2019-09-05 | XMS | Encounter Summary ---
Demographics + + + | Address | [address] | | | [place] [address] | + + + | Home Phone [...] [place] | | | | | [address] | | + + + + + Care Team Providers + +------+ + | Care Oracle Programmer Name | Role | Phone | [...] | Eugenio Mailcode: [id number] | [address] [place], | | | | | [place], [place] | [place] [address] | | | | | [address] | [phone] | | | | | [phone] | | | +--------+ + + + [...]
--- OUTSIDE RECORDS SUMMARY | ~2019-09-05 | XMS | Encounter Summary ---
Demographics + + + | Address | [address] | | | [place] [address] | + + + | Home Phone | | + + + | Preferred Language | Unknown | + + + | Marital Status | | + + + | Denominational Affiliation | 1077 | + + + | Race | Unknown | + + + | Ethnic Group | Unknown | + + + Author + + + | Author | [facility] | | | and [place] | + + + | Organization | [facility] | [...] [place] | | | | | [address] | | + + + + + | Najma Xiong | ECON | Unknown | | + + + + + | Hector Mack | ECON | [address] | | | | | [place] | | | | | [address] | | + + + + + Care Team Providers + +------+ + | Care Moving Picture Operator Name | Role | Phone | + +------+ + PCP | Unavailable | + +------+ + Encounter Details +--------+ + + + + | Date | Type | Department | Care Team | Description | +--------+ + + + + | 03/01/ | Hospital | [facility] | | | | 1995 - | Encounter | MED CTR GENERIC OP | | | | | | CONV DEPT [address] | | | | 08/02/ | | [place], | | | | 1996 | | [place] [address] | | | | | | [phone] | | | +--------+ + + + [...]
--- OUTSIDE RECORDS SUMMARY | ~2019-09-05 | XMS | Encounter Summary ---
Demographics + + + | Address | [address] | | | [place] [address] | + + + | Home Phone [...] | Author | [facility] | | | and [place] | + + + | Organization | [facility] [...] [place] | | | | | [address] | | + + + + + | Najma Xiong | ECON | Unknown | | + + + + + | Hector Mack | ECON | [address] | | | | | [place] | | | | | [address] | | + + + + + Care Team Providers + +------+ + | Care Landscape Photographer Name | Role | Phone | + +------+ + PCP | Unavailable | + +------+ + Encounter Details +--------+ + + + + | Date | Type | Department | Care Team | Description | +--------+ + + + + | 05/04/ | Hospital | [facility] | | | | 1996 - | Encounter | MED CTR OP REHAB | | | | | | [address] | | | | 08/19/ | | [place] [address] | | | | 1996 | | [phone] | | | +--------+ + + + [...] [place] | | | | | | [id number] | | | | | | | | +--------+---------+ + + + documented as of this encounter Visit Diagnoses Not on filedocumented in this encounter"
--- OUTSIDE RECORDS SUMMARY | ~2019-09-05 | XMS | Encounter Summary ---
Demographics + + + | Address | [address] | | | [place] [address] | + + + | Home Phone [...] + + + | Author | [facility] | | | and [place] | + + + | Organization | [facility] | [...] [place] | | | | | [address] | | + + + + + | Najma Xiong | ECON | Unknown | | + + + + + | Hector Mack | ECON | [address] | | | | | [place] | | | | | [address] | | + + + + + Care Team Providers + +------+ + | Care Counseling Department Chair Name | Role | Phone | + +------+ + PCP | Unavailable | + +------+ + Encounter Details +--------+ + + + + | Date | Type | Department | Care Team | Description | +--------+ + + + + | 01/21/ | [facility] | [facility] | Lalo Londono MD | | | 2005 | Encounter | MED CTR XRAY [address] | [address] | | | | | [place] | [address] [place], [place] | | | | | [place] [address] | [address] | | | | | [phone] | | | +--------+ + + + [...]
--- OUTSIDE RECORDS SUMMARY | ~2019-09-05 | XMS | Encounter Summary ---
Demographics + + + | Address | [address] | | | [place] [address] | + + + | Home Phone | | + + + | Preferred Language | Unknown | + + + | Marital Status | | + + + | Adventism Affiliation | 1077 | + + + | Race | Unknown | + + + | Ethnic Group | Unknown | + + + Author + + + | Author | [facility] | | | and [place] | + + + | Organization | [facility] [...] [place] | | | | | [address] | | + + + + + | Najma Xiong | ECON | Unknown | | + + + + + | Hector Mack | ECON | [address] | | | | | [place] | | | | | [address] | | + + + + + Care Team Providers + +------+ + | Care Hydroblaster Name | Role | Phone | + +------+ + PCP | Unavailable | + +------+ + Encounter Details +--------+ + + + + | Date | Type | Department | Care Team | Description | +--------+ + + + + | 05/18/ | Hospital | [facility] | | | | 2000 | Encounter | MED CTR EMERGENCY | | | | | | CENTER [address] | | | | | | [place] | | | | | | [address] | | | | | | [phone] | | | +--------+ + + + [...] [place] | | | | | | [id number] | | | | | | | | +--------+---------+ + + + documented as of this encounter Visit Diagnoses Not on filedocumented in this encounter"
--- OUTSIDE RECORDS SUMMARY | ~2019-09-05 | XMS | Encounter Summary ---
Demographics + + + | Address | [address] | | | [place] [address] | + + + | Home Phone [...] Organization | [facility] | | | and [place] [...] [place] | | | | | [address] | | + + + + + | Najma Xiong | ECON | Unknown | | + + + + + | Hector Mack | ECON | [address] | | | | | [place] | | | | | [address] | | + + + + + Care Team Providers + +------+ + | Care Warping Mill Operator Name | Role | Phone | + +------+ + | Tuan Chan MD | PCP | | + +------+ + Encounter Details +--------+ + + + + | Date | Type | Department | Care Team | Description | +--------+ + + + + | 01/03/ | Emergency | [facility] | Silas Maravilla | Cellulitis of chest | | 2018 | | HOSPITAL EMERGENCY | MD [address] | [place] (Primary Dx) | | | | [place] [address] [address] | [facility] | | | | | [address] [place], [place] | [place] [address] | | | | | [address] | [phone] | | | | | [phone] | | | +--------+ + + + [...] not be allowed to run out. Contact [facility] clinic as well as [facility] Friday to establish with a doctor. documented [...] [place] | | | | | | [address] | | | | | | | [...] D?MRN: | | | | | | [id number] | | | [id number] | | | his | | | [...] | | | St. | | | [place] | | | y | | | [...] | | | St. | | | [place] | | | y | | | [...] | | | [address] | | | UTAN | | | [place] | | | [...]
--- OUTSIDE RECORDS SUMMARY | ~2019-09-05 | XMS | Encounter Summary ---
Demographics + + + | Address | [address] | | | [place] [address] | + + + | Home Phone [...] Organization | [facility] | | | [...] [place] | | | | | [address] | | + + + + + | Najma Xiong | ECON | Unknown | | + + + + + | Hector Mack | ECON | [address] | | | | | [place] | | | | | [address] | | + + + + + Care Team Providers + +------+ + | Care Rock Loader Name | Role | Phone | [...] Nguyen | Feared condition not | | 2017 | | HOSPITAL EMERGENCY | C, FOLDER STITCHER OPERATOR [address] | demonstrated | | | | CENTER [address] | [place] | (Primary Dx) | | | | [place] | [id number] | | | | | [address] | | | | | | [phone] | | | +--------+ + + + [...] [place] | | | | | | [address] | | | | | | | [...] | + +--------+ + + + | SHEYLA URIARTE | STAT | 10/09/2017 | | Results [...] | | | FICATI | | | ON?07/ | | | [birth year]/201 | | | 8 | | | 18:40? | | | [place] | | | BARNET | | | T, | | | GERMAINE | | | D?MRN: | | | | | | [id number] | | | [id number] | | | ecurit | | | [...] | | | St. | | | [place] | | | y | | | [...] | | | St. | | | [place] | | | y H. | | [...] | | | St. | | | [place] | | | y H. | | [...] | | | St. | | | [place] | | | y H. | | [...] | | | St. | | | [place] | | | y H. | | [...] | | | St. | | | [place] | | | y | | | [...] | | | 145 | | | TU[place] | | | [place] | | | [...] | | | 0 | | | [address] | | | 3-05 | | | [place] | | | NE | | | SULF | | | ER 60 | | | MG | | | TABLET | | | 56 | | | TUAN | | | [place] | | | N, MD | | | 0 | | | [address] | | | 3-05 | | | OXYCOD | | | ONE-AC | | | ETAMIN | | | OPHEN | | | 10-325 | | | 145 | | | TUAN | | | [place] | | | N, MD | | | 2 0 | | | [address] | | | 2-05 | | | [...] | | | 2018 | | | 2-05 | | | [...] + + | [facility] | [address] | [place] | [phone] | | HOSPITAL LABORATORY | | [address] | | + + + + + Urinalysis with Microscopic with Culture if Indicated (10/09/2017 7:50 PM PDT) + + + + + + | Component | Value | Ref Range | Performed | Pathologist | | | | | At | Signature | + + + + + + | Color, | Yellow | Pale Yellow, | [facility] | | | Urine | | Yellow | [facility] | | [...] - 1.030 | [facility] | | | [place], | | | [facility] | | | [...] + + + | White Blood | 0-2 | <=5 /HPF | [facility] | | | Cells, | | | [facility] | | | Urine | | | HOSPITAL | | | | | | LABORATORY | | + + + + + + | Red Blood | None Seen | <=5 /HPF | [facility] | | | Cells, | | | [facility] | | | Urine | | | HOSPITAL | | | | | | LABORATORY | | + + + + + + | Squamous | Moderate (A) | None Seen /LPF | [facility] | | | Epithelial | | | [facility] | | | Cells, | | | HOSPITAL | | | Urine | | | LABORATORY | | + + + + + + | Bacteria, | Moderate (A) | None Seen /HPF | [facility] | | | Urine | | | [facility] | | | | | | HOSPITAL | | | | | | LABORATORY | | + + + + + + | Urine | Urine Culture Not | | [facility] | | | Comment | Indicated | | [facility] | | [...] + + | [facility] | [address] | [place] | [phone] | | HOSPITAL LABORATORY | | [address] | | + + + + + [...] + + | [facility] | [address] | [place] | [phone] | | HOSPITAL LABORATORY | | [address] | | + + + + + [...] | mL/min/1.73m2 | [facility] | | | KOSOVAN | RATE,ESTIMATED | | HOSPITAL | | | | mL/min/1.50n8Rsse than | | LABORATORY | | | [...] + + + + + | [facility] | [address] | [place] | [phone] | | HOSPITAL LABORATORY | | [address] | | + + + + + [...] + + | [facility] | [address] | [place] | [phone] | | HOSPITAL LABORATORY | | [address] | | + + + + + documented in this encounter Visit Diagnoses + + | Diagnosis | + + | Feared condition not demonstrated - Primary Person with feared complaint in whom no | | diagnosis was made | + + documented in this encounter
--- OUTSIDE RECORDS SUMMARY | ~2019-09-05 | XMS | Encounter Summary ---
Demographics + + + | Address | [address] | | | [place] [address] | + + + | Home Phone [...] | Organization | [facility] | | | and [...] [place] | | | | | [address] | | + + + + + | Najma Xiong | ECON | Unknown | | + + + + + | Hector Mack | ECON | [address] | | | | | [place] | | | | | [address] | | + + + + + Care Team Providers + +------+ + | Care Petrophysical Engineer Name | Role | Phone | + +------+ + PCP | Unavailable | + +------+ + Encounter Details +--------+ + + + + | Date | Type | Department | Care Team | Description | +--------+ + + + + | 11/10/ | Hospital | [facility] | Oralia Quinonez | | | 2011 | Encounter | HOSPITAL EMERGENCY | MD [address] | | | | | [address] | [address] [place] | | | | | [address] [place], [place] | [place] [address] | | | | | [address] | [phone] | | | | | [phone] | | | +--------+ + + + [...]
--- OUTSIDE RECORDS SUMMARY | ~2019-09-05 | XMS | Encounter Summary ---
Demographics + + + | Address | [address] | | | [place] [address] | + + + | Home Phone [...] [place] | | | | | [address] | | + + + + + [...] | Activity | [address] | [address] | | | | | [address] Mailcode: RPB07 | [place], [place] | | | | | [place], [place] | [address] | | | | | [address] | [phone] | | | | | [phone] | | | +--------+ + + + [...]
--- OUTSIDE RECORDS SUMMARY | ~2019-09-05 | XMS | Encounter Summary ---
Demographics + + + | Address | [address] | | | [place] [address] | + + + | Home Phone [...] | Author | [facility] | | | and [place] | + + + | Organization | [facility] | [...] [place] | | | | | [address] | | + + + + + | Najma Xiong | ECON | Unknown | | + + + + + | Hector Mack | ECON | [address] | | | | | [place] | | | | | [address] | | + + + + + Care Team Providers + +------+ + | Care Bus Attendant Name | Role | Phone | [...] 2018 | Visit | HOSPITAL DERMATOLOGY | [facility] [address] | nonspecific skin | | | | CLINIC [address] | [place], | eruption (Primary | | | | DR [place], | [place] [address] | Dx) | | | | [place] [address] | [phone] | | | | | [phone] | | | +--------+---------+ + + + [...] encounter Patient Instructions Patient Instructions Katherine Dixon, STEEL BURNER - 02/03/2018 2:31 PM PSTThe patient was funeral pre arrangement counselor ed regarding the above findings: Please [...] a.m. to 4 p.m. Date Last Reviewed: 03/31/201619992940-6753 [employer]. [address] [place] [address], [place] [address]. All righ ts reserved. This information is not intended as a substitute for professional medical care. Always follow your healthcare professional's instructions. documented in this encounter Progress Notes Landen Zimmer, MARKETING FORECASTER - 02/03/2018 1:15 PM PST Patient Name: [...] A total of 40 minutes was spent [id number] with patient, greater than 50% of which [...] [place] | | | | | | [address] | | | | | | | [...] | SPECIMEN(S): C LEFT UPPER BACK IN [facility] SPECIMEN(S): A RIGHT CHEST | [place] [facility] | | SPECIMEN(S): B LEFT CHEST SPECIMEN SOURCE: A. RIGHT CHEST B. | [facility] | | LEFT CHEST C. LEFT UPPER BACK IN [facility] CLINICAL HISTORY: A, B. | | | Rule out contact dermatitis vs. lupus vs. other. C. Sent to [place] | | | for Dif. R21 (rash [...] | | formalin in a container labeled "[facility], site A, right | | | chest" is an unoriented skin punch biopsy, measuring 0.5 cm in | | | diameter x 0.4 cm in depth. The base of the specimen is inked black | | | and it is bisected and entirely submitted in one cassette (A1). | | | B. Received in formalin in a container labeled "[facility], | | | site B, left upper chest" is an unoriented skin punch biopsy, | | | measuring 0.6 cm in diameter x 0.4 cm in depth. The base of the | | | specimen is inked black and it is sectioned and entirely submitted in | | | one cassette (B1). C. The specimen is labeled and designated | | | "[facility], site C" and requisition further indicates "back, upper | | | left," is received in Yosi fixative and consists of a 0.5 cm, | | | pink-hung skin ellipse, excised to a depth of 0.5 cm. The specimen is | | | submitted for immunofluorescence studies NRT:cr:cml:las | | | PERFORMING LABORATORY: The technical component was performed by | | | [facility], [facility] branch, [address] | | | [place], [place] [address] (Cellar Supervisor: Papi Gabriel MD; CLIA# | | | [id number]). Professional interpretation was performed by [facility] | | | [facility], [facility], [address] | | | [place] [address] (Cellar Supervisor: Spencer Whitley | | | Chey Edmond; CLIA#: [id number]). Professional interpretation | | | of the direct immunofluorescence was performed by [facility], | | | [address] [place] [address] (Cellar Supervisor: | | | Eitan Baig D.O.; CLIA#: [id number]). Diagnostician: | | | Spencer Edmond MD [...]
--- OUTSIDE RECORDS SUMMARY | ~2019-09-05 | XMS | Encounter Summary ---
Demographics + + + | Address | [address] | | | [place] [address] | + + + | Home Phone [...] [place] | | | | | [address] | | + + + + + Care Team Providers + +------+ + | Care Tile Presser Name | Role | Phone | [...] | | | | | | | [facility] | | | | | | | [place] | | | | | | | [facility] | | | | | | | ([facility]) | | | | | | | [place], | | | | | | | [place] [address] | | | | | | | Phone: | | | | | | | [phone] | | | | | | | Fax: | | | | | | | [phone] | +--------+--------+ + + + + Encounter [...] [address] | | | | | PA[facility] | [facility] [place] | | | | | [facility] | [address] | | | | | ([facility]) | [phone] | | | | | [place], [place] | | | | | | [address] | | | | | | [phone] | | | +--------+ + + + [...] to urinate. HAVING A URETERAL STENT: Call: [facility] Urology/Renal Transplant at If you have [...] 2 weeks Follow Up Tests: (Tests at [facility] must be entered into [facility]) Ureteral stent removal Discharge Patient To: Home [...] problems, you can discuss it with your health information managers and colleagues so that possible temporary adjustments [...] this happens, you should contact the urologist plant technician/control room operator for [place]. IS THERE POSSIBILITY OF A URINARY TRACT [...] urine. For medical emergencies, call 911. Call: [facility] Urology/Renal Transplant at If you have [...] 2 weeks Follow Up Tests: (Tests at [facility] must be entered into [facility]) Ureteral stent removal Discharge Patient To: Home Discharging Provider: GAUTAM TAVERAS MD Date Completed: 09/08/2008 [facility] and [facility] Home Care After CYSTOSCOPY Follow the [...] from 8:00 4:30, call the Urology Clinic [phone]. After hours, weekend and holidays call the Hospital Poultry Cleaner at [phone]. Ask for them to page your doctor. [...] | | | | | acid.Performed by [facility] | | | | | | [facility],[address] | | | | | | [place] [address] | | | | | | [phone].[employer]. | | | | | | [facility], | | | | | | - [...] | + + + + + | [facility] | [address] | [place] [address] | | | PATHOLOGY | [address] [...]
--- OUTSIDE RECORDS SUMMARY | ~2019-09-05 | XMS | Encounter Summary ---
Demographics + + + | Address | [address] | | | [place] [address] | + + + | Home Phone [...] + | Author | [facility] | | | and [place] | + + + | Organization | [facility] | | | and [place]ana [...] [place] | | | | | [address] | | + + + + + | Najma Xiong | ECON | Unknown | | + + + + + | Hector Mack | ECON | [address] | | | | | [place] | | | | | [address] | | + + + + + Care Team Providers + +------+ + | Care Team Driver Name | Role | Phone | + +------+ + PCP | Unavailable | + +------+ + Encounter Details +--------+ + + + + | Date | Type | Department | Care Team | Description | +--------+ + + + + | 11/10/ | Hospital | [facility] | Oralia Quinonez | | | 2011 | Encounter | HOSPITAL EMERGENCY | MD [address] | | | | | [address] | [address] [place] | | | | | [address] [place], [place] | [place] [address] | | | | | [address] | [phone] | | | | | [phone] | | | +--------+ + + + [...]
--- OUTSIDE RECORDS SUMMARY | ~2019-09-05 | XMS | Encounter Summary ---
Demographics + + + | Address | [address] | | | [place] [address] | + + + | Home Phone [...] [place] | | | | | [address] | | + + + + + Care Team Providers + +------+ + | Care Vision Specialist Name | Role | Phone | [...] | | Transcribed | | [place], | | | | | | [place] [address] | | | | | | [phone] | | | | | | | [...] Pedraza MD - 06/18/2007 12:00 AM PDT [id number] | | [id number] [place] [id number] | | [id number] Date: 06/18/2007 Attending Surgeon: Noe Hdez M.D. | | Shuttle Spotter(s): Bryan Pedraza M.D. Preoperative Diagnosis(es): Right | | urolithiasis. Postoperative Diagnosis(es): Right urolithiasis. Procedures | | Performed: 1. Rigid cystourethroscopy. 2. Right retrograde pyelogram. 3. Right flexible | | nephroureteroscopy with holmium laser lithotripsy. 4. Right ureteral stent placement | | (6-Bangladeshi x 24 cm). 5. Fluoroscopy with interpretation. [...] case. After | | surgical pause, a 21-Bangladeshi rigid cystoscope was inserted into the bladder [...] both proximally and distally. An | | 18-Bangladeshi Mirza catheter was then placed and filled [...] | | Chey Pedraza M.D. D / [id number] / [id number] / [id number] / | | [id number] Reviewed or Edited By Bryan Pedraza | [...] | | | After surgical pause, a 21-Bangladeshi rigid cystoscope was inserted into the | [...] both proximally and distally. An | | 18-Bangladeshi | | Mirza catheter was then placed [...] | | BDD / HS | | [id number] / [id number] / [id number] / [id number] | | | | | | | [...]
--- OUTSIDE RECORDS SUMMARY | ~2019-09-05 | XMS | Encounter Summary ---
Demographics + + + | Address | [address] | | | [place] [address] | + + + | Home Phone [...] [place] | | | | | [address] | | + + + + + Care Team Providers + +------+ + | Care Color Television Console Monitor Name | Role | Phone | + +------+ + | Tuan Chan MD | PCP | | + +------+ + Encounter Details +--------+ + + + + | Date | Type | Department | Care Team | Description | +--------+ + + + + | 06/17/ | Results | Urology Adult | Noe Hdez, | | | 2007 | Only | [address] | [address] | | | | | Mailcode: CH10U | [place], [place] | | | | | [facility] | [address] | | | | | and Healing, | [phone] | | | | | | | | | | | Floor [place], [place] | | | | | | [address] | | | | | | [phone] | | | +--------+ + + + [...]
--- OUTSIDE RECORDS SUMMARY | ~2019-09-05 | XMS | Encounter Summary ---
Demographics + + + | Address | [address] | | | [place] [address] | + + + | Home Phone | | + + + | Preferred Language | Unknown | + + + | Marital Status | | + + + | Christian Affiliation | 1077 | + + + | Race | Unknown | + + + | Ethnic Group | Unknown | + + + Author + + + | Author | [facility] | | | and [place] | + + + | Organization | [facility] | | [...] [place] | | | | | [address] | | + + + + + | Najma Xiong | ECON | Unknown | | + + + + + | Hector Mack | ECON | [address] | | | | | [place] | | | | | [address] | | + + + + + Care Team Providers + +------+ + | Care Executor Of Estate Name | Role | Phone | + +------+ + PCP | Unavailable | + +------+ + Encounter Details +--------+ + + + + | Date | Type | Department | Care Team | Description | +--------+ + + + + | 01/21/ | [facility] | [facility] | Lalo Londono MD | | | 2005 | Encounter | MED CTR XRAY [address] | [address], [place] | | | | | [address] | [address] [place], [place] | | | | | [place] [address] | [address] | | | | | [phone] | | | +--------+ + + + [...]
--- OUTSIDE RECORDS SUMMARY | ~2019-09-05 | XMS | Encounter Summary ---
Demographics + + + | Address | [address] | | | [place] [address] | + + + | Home Phone [...] | Organization | [facility] | | | and [place] | + + + | Address | Unknown | + + + | Phone | Unavailable | + + + Support + + + + + | Name | Relationship | Address | Phone | + + + + + | Hecotr Mack | ECON | [address] | | | | | [place] | | | | | [address] | | + + + + + | Najma Xiong | ECON | Unknown | | + + + + + | Hector Mack | ECON | [address] | | | | | [place] | | | | | [address] | | + + + + + Care Team Providers + +------+ + | Care Record Retrieval Specialist Name | Role | Phone | + +------+ + PCP | Unavailable | + +------+ + Encounter Details +--------+ + + + + | Date | Type | Department | Care Team | Description | +--------+ + + + + | 07/26/ | Hospital | [facility] | | | | 1996 | Encounter | MED CTR EMERGENCY | | | | | | CENTER [address] | | | | | | [place] | | | | | | [address] | | | | | | [phone] | | | +--------+ + + + [...] [place] | | | | | | [id number] | | | | | | | | +--------+---------+ + + + documented as of this encounter Visit Diagnoses Not on filedocumented in this encounter"
--- OUTSIDE RECORDS SUMMARY | ~2019-09-05 | XMS | Encounter Summary ---
Demographics + + + | Address | [address] | | | [place] [address] | + + + | Home Phone [...] + | Author | [facility] | | | and [place] | + + + | Organization | [facility] | [...] [place] | | | | | [address] | | + + + + + | Najma Xiong | ECON | Unknown | | + + + + + | Hector Mack | ECON | [address] | | | | | [place] | | | | | [address] | | + + + + + Care Team Providers + +------+ + | Care Assistant Professor Of Business Name | Role | Phone | + +------+ + PCP | Unavailable | + +------+ + Encounter Details +--------+ + + + + | Date | Type | Department | Care Team | Description | +--------+ + + + + | 03/03/ | Hospital | [facility] | Colton Long, | | | 2000 | Encounter | MED CTR XRAY [address] | [address] | | | | | [place] | [place] | | | | | [place] [address] | [address] | | | | | [phone] | | | +--------+ + + + [...] | 11/25/ | Office | Neurology | Daurte Moon MD | | | 2020 | Visit | | [address] | | | | | | [place] | | | | | | [address] | | | | | | | | +--------+---------+ + + + documented as of this encounter Visit Diagnoses Not on filedocumented in this encounter"
--- OUTSIDE RECORDS SUMMARY | ~2019-09-05 | XMS | Encounter Summary ---
Demographics + + + | Address | [address] | | | [place] [address] | + + + | Home Phone [...] [place] | | | | | [address] | | + + + + + Care Team Providers + +------+ + | Care Manager Farm Name | Role | Phone | + +------+ + | Tuan Chan MD | PCP | | + +------+ + Encounter Details +--------+ + + + + | Date | Type | Department | Care Team | Description | +--------+ + + + + | 03/11/ | Results | Urology Fertility | Renato Chow MD | | | 2010 | Only | [address] | | | | | | Mailcode: CH10U | | | | | | [facility] | | | | | | and Healing, | | | | | | Building | | | | | | Floor [place], [place] | | | | | | [address] | | | | | | [phone] | | | +--------+ + + + [...] | + + + + + | [facility] | [address] | [place] [address] | | | PATHOLOGY | [address] | | | + + + + + documented in this encounter Visit Diagnoses Not on filedocumented in this encounter"
--- OUTSIDE RECORDS SUMMARY | ~2019-09-05 | XMS | Clinical Summary ---
Demographics + + + | Address | [address] | | | [place] [address] | + + + | Home Phone | | + + + | Preferred Language | Unknown | + + + | Marital Status | | + + + | Christianity Affiliation | PRO | + + + | Race | White | + + + | Ethnic Group | Not or | + + + Author + + + | Author | [facility] | + + + | Organization | [facility] | + + + | Address | Unknown | + + + | Phone | Unavailable | + + + Support + + + + + | Name | Relationship | Address | Phone | + + + + + | Hector Mack | ECON | [address] | | | | | [place] | | | | | [address] | | + + + + + Care Team Providers + +------+ + | Care Cloth Examiner Name | Role | Phone | + +------+ + | Tuan Chan MD | PCP | | + +------+ + Source Comments AMY is fully live on both [facility] Ambulatory and [facility] InPatient.[facility] Allergies + + + + + [...] | | | | | | | [address] | | + +--------+ +--------+ + +--------+ | MEDICAID [place] | OHP | xxxxxxxx | 07/01/19 | [phone] | [address] | | | PLUS | | 10-Pre | 6 | [address] | id | | | OPEN | | sent | | [place] | | | | CARD | | | | 22012 | | + +--------+ +--------+ + +--------+ [...] demetrius | | | 4 (Home) | [address] | + +--------+ +--------+ + + Advance Directives + + + + + | Type | Date Recorded | Patient | Explanation | | | | Genetics Physician | | + + + + + | Advance | | | | | Directives and | | | | | Living Will | | | | + + + + + | Power of | | | | | Geomorphology Teacher | | | | + + + [...]
--- OUTSIDE RECORDS SUMMARY | ~2019-09-05 | XMS | Encounter Summary ---
Demographics + + + | Address | [address] | | | [place] [address] | + + + | Home Phone [...] [place] | | | | | [address] | | + + + + + Care Team Providers + +------+ + | Care Oxygen Equipment Preparer Name | Role | Phone | + [...] | n | Eugenio Mailcode: RPB07 | [place], [place] | | | | | [place], [place] | [address] | | | | | [address] | [phone] | | | | | [phone] | | | +--------+ + + + [...]
--- OUTSIDE RECORDS SUMMARY | ~2019-09-05 | XMS | Encounter Summary ---
Demographics + + + | Address | [address] | | | [place] [address] | + + + | Home Phone [...] [place] | | | | | [address] | | + + + + + Care Team Providers + +------+ + | Care Print Shop Manager Name | Role | Phone | [...] unspecified | [address] | [address] | | | | | site of | [address] | Ave | | | | | abdominal | [facility] [place] | Mailcode: | | | | | cavity | [address] | [facility] | | | | | without | | for Health | | | | | mention of | | and Healing, | | | | | obstruction | | Building 1, | | | | | or gangrene | | 5th Floor | | | | | | | [place], [place] | | | | | Panniculitis | | [address] | | | | | Procedures | | Phone: | | | | | REQUEST TO | | [phone] | | | | | SURGERY | | | | | | | SHAKER REPAIRER | | | +--------+--------+ + + + [...] | | | | | abdominal | [place], [place] | Hospital, | | | | | cavity | [address] | 10th Floor | | | | | without | | [place], [place] | | | | | mention of | | [address] | | | | | obstruction | | Phone: | | | | | or gangrene | | [phone] | | | | | Procedures | | Fax: | | | | | CT ABDOMEN | | [phone] | | | | | WWO CONTRAST [...] | | | | | | Mailcode: [facility] | | | | | | [facility] | | | | | | and Healing, | | | | | | Building 1, 5th | | | | | | Floor [place], [place] | | | | | | [address] | | | | | | [phone] | | | +--------+---------+ + + + [...] | | + +---------+ + + | [facility] DEPARTMENT OF | | | [...]
--- OUTSIDE RECORDS SUMMARY | ~2019-09-05 | XMS | Encounter Summary ---
Demographics + + + | Address | [address] | | | [place] [address] | + + + | Home Phone [...] Author | [facility] | | | and [place] | + + + | Organization | [facility] | | | and [...] [place] | | | | | [address] | | + + + + + | Najma Xiong | ECON | Unknown | | + + + + + | Hector Mack | ECON | [address] | | | | | [place] | | | | | [address] | | + + + + + Care Team Providers + +------+ + | Care Slot Editor Name | Role | Phone | + +------+ + PCP | Unavailable | + +------+ + Encounter Details +--------+ + + + + | Date | Type | Department | Care Team | Description | +--------+ + + + + | 04/14/ | Hospital | [facility] | | | | 1996 | Encounter | MED CTR EMERGENCY | | | | | | CENTER [address] | | | | | | [place] | | | | | | [address] | | | | | | [phone] | | | +--------+ + + + [...] 11/25/ | Office | Neurology | Duarte Mono MD | | | 2020 | Visit | | [address] | | | | | | [place] | | | | | | [id number] | | | | | | | | +--------+---------+ + + + documented as of this encounter Visit Diagnoses Not on filedocumented in this encounter"
--- OUTSIDE RECORDS SUMMARY | ~2019-09-05 | XMS | Encounter Summary ---
Demographics + + + | Address | [address] | | | [place] [address] | + + + | Home Phone [...] [place] | | | | | [address] | | + + + + + Care Team Providers + +------+ + | Care Commercial Solar Sales Consultant Name | Role | [...] | | Panniculitis | [address] | [facility] [address] | | | | | Procedures | [address] | [address] | | | | | CONSULT TO | [place], [place] | Mailcode: | | | | | [place] | [address] | [facility] | | | | | SKIN ABD [place] | | for Health | | | | | REDUCTION | | and Healing, | | | | | OF LARGE | | Building 1, | | | | | BREAST | | 5th Floor | | | | | Procedure to | | [place], [place] | | | | | be | | [address] | | | | | performed: | | Phone: | | | | | breast | | [phone] | | | | | reduction | [...] | | | | | | | ([address]) and | | | | | | | Reduction of | | | | | | | large | | | | | | | breast | | | | | | | ([address]) | | | +--------+--------+ + + + [...] Dx) | | | | Surgery at [facility] [address] | [place], [place] | | | | | [address] | [address] | | | | | Mailcode: [facility] | [phone] | | | | | [facility] | | | | | | and Healing, | | | | | | Building 1, 5th | | | | | | Floor [facility] [place] | | | | | | [address] | | | | | | [phone] | | | +--------+---------+ + + + [...] 18 years ago Occupation: unemployed, lives in [place] Family History Problem Relation Heart Mother Diabetes [...] per side. Plan: --Patient will followup with black leather buffer, who will re-evaluate her rash prior to proceedi ng with breast surgery. Requested that derm forward their note to us. --Our director of surgery will provide the patient with a key [...]
--- OUTSIDE RECORDS SUMMARY | ~2019-09-05 | XMS | Encounter Summary ---
Demographics + + + | Address | [address] | | | [place] [address] | + + + | Home Phone [...] [place] | | | | | [address] | | + + + + + Care Team Providers + +------+ + | Care Ex Assistant/Program Director Name | Role | Phone | [...] Dx) | | 2006 | Visit | [place] [address] | | | | | | [place] Mailcode: CH4S | | | | | | [facility] | | | | | | and Healing, | | | | | | Building 1, 6th | | | | | | Floor [place], [place] | | | | | | [address] | | | | | | [phone] | | | +--------+---------+ + + + [...] Performed At | + + + | [id number] Estimated GFR = 60 mL/min/1.73 sq m if non- | [facility] | | [id number] Estimated GFR > 60 mL/min/1.73 sq m [...] | + + + + + | [facility] DEPARTMENT OF | [address] | [place] [address] | | | PATHOLOGY | [address] | | | + + + + + | [facility] | [address] | [place] [address] | | | PATHOLOGY | [address] [...] | + + + + + | [facility] | [address] | [place] [address] | | | PATHOLOGY | [address] | | | + + + + + | [facility] | [address] | [place] [address] | | | PATHOLOGY | [address] | | | + + + + + documented in this encounter Visit Diagnoses + + | Diagnosis | + + | Obesity - Primary Obesity, unspecified | + + documented in this encounter
--- OUTSIDE RECORDS SUMMARY | ~2019-09-05 | XMS | Encounter Summary ---
Demographics + + + | Address | [address] | | | [place] [address] | + + + | Home Phone [...] [place] | | | | | [address] | | + + + + + Care Team Providers + +------+ + | Care Microfilm Equipment Inspector Name | Role | Phone | [...] | | | | | | [address] [place], [place] | | | | | | [address] | | | | | | [phone] | | | +--------+---------+ + + + [...] of surgical weight loss procedure. [facility] Last 1 Wt Readings: Date: [...] has been cleared for surgery by her change house attendant, Dr. Melendez. She states she has completed dietary consultation and psychological evaluation in [facility]. Those records have been requested. Current [...] REFLUX DISEASE) SLEEP APNEA Past Surgical History: [place] CABG, VEIN, FOUR HX APPENDECTOMY HX CHOLECYSTECTOMY [...]
--- OUTSIDE RECORDS SUMMARY | ~2019-09-05 | XMS | Clinical Summary ---
Demographics + + + | Address | [address] | | | [place] [address] | [...] Author + + + | Author | [facility] | + + + | Organization | [facility] | + + + | Address | Unknown | + + + | Phone | Unavailable | + + + Support + + + + + | Name | Relationship | Address | Phone | + + + + + | Hector Mack | ECON | [address] | | | | | [place] | | | | | [address] | | + + + + + Care Team Providers + +------+ + | Care Pants Maker Name | Role | Phone | + +------+ + | uTan Chan MD | PCP | | + +------+ + Source Comments AMY is fully live on both [facility] Ambulatory and [facility] InPatient.[facility] Allergies + + + + [...] | | | | | | | [address] | | + +--------+ +--------+ + +--------+ | [place]ICAID [place] | OHP | xxxxxxxx | 07/01/19 | [phone] | [address] | Medica | | | PLUS | | 10-Pre | 6 | [address] | id | | | OPEN | | sent | | [place] | | | | CARD | | | | [phone] | | + +--------+ +--------+ + +--------+ [...] demetrius | | | 4 (Home) | [address] | + +--------+ +--------+ + + Advance Directives + + + + + | Type | Date Recorded | Patient | Explanation | | | | Spinning Bath Person | | + + + + + | Advance | | | | | Directives and | | | | | Living Will | | | | + + + + + | Power of | | | | | Chinese Teacher | | | | + + [...]
--- OUTSIDE RECORDS SUMMARY | ~2019-09-05 | XMS | Encounter Summary ---
Demographics + + + | Address | 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
--- OUTSIDE RECORDS SUMMARY | ~2019-09-05 | XMS | Encounter Summary ---
Demographics + + + | Address | [address] | | | [place] [address] | + + + | Home Phone [...] + | Organization | [facility] [...] [place] | | | | | [address] | | + + + + + | Najma Xiong | ECON | Unknown | | + + + + + | Hector Mack | ECON | [address] | | | | | [place] | | | | | [address] | | + + + + + Care Team Providers + +------+ + | Care Strapping Machine Tender Name | Role | Phone | + +------+ + PCP | Unavailable | + +------+ + Encounter Details +--------+ + + + + | Date | Type | Department | Care Team | Description | +--------+ + + + + | 11/23/ | Hospital | [facility] | Herberth Mayorga | | | 1996 | Encounter | MED CTR XRAY [address] | [address], FABIO [address] | | | | | [place] | [place], [place] | | | | | [place] [address] | [address] | | | | | [phone] | [phone] | | | | | | | [...]
--- OUTSIDE RECORDS SUMMARY | ~2019-09-05 | XMS | Encounter Summary ---
Demographics + + + | Address | [address] | | | [place] [address] | + + + | Home Phone [...] [place] | | | | | [address] | | + + + + + Care Team Providers + +------+ + | Care Beekeeper Name | Role | Phone | + [...] | | | | Mailcode: CH10U | [place], [place] | | | | | [facility] | [address] | | | | | and Healing, | [phone] | | | | | [facility] | | | | | | Floor [place], [place] | | | | | | [address] | | | | | | [phone] | | | +--------+---------+ + + + [...] of Urology and Renal Transplantation [facility] oe Hdez - 10/19/2007 1:51 [...] Lab) | | | | | | [facility] | | | | | | [address] | | | | | [address] | | | | | | [place], [place] | | | | | | [id number]: Test | | | | | | performed at [place] | | | | | | [facility] | | | | | | Laboratory. | | | | + + + + + + + + | Specimen | + + | Urine - Urine | + + + + + + + | Performing | Address | City/State/Zipcode | Phone Number | | Organization | | | | + + + + + | [facility] | [address] | [place] [address] | | | LAB-MICRO | | | [...] [facility] | [address] | [place], [place] | | | [facility] POINT OF CARE | [address] | [address] | | | TESTS | | | | + + + + + | [facility] | [address] | [place], [place] | | | TESTS | [address] | [address] | | + + + + + documented in this encounter Visit Diagnoses + + | Diagnosis | + + | Urolithiasis - Primary Urinary calculus, unspecified | + + documented in this encounter"
--- OUTSIDE RECORDS SUMMARY | ~2019-09-05 | XMS | Encounter Summary ---
Demographics + + + | Address | [address] | | | [place] [address] | + + + | Home Phone [...] | Author | [facility] | | | and [place] | + + + | Organization | [facility] | | | and [place] [...] [place] | | | | | [address] | | + + + + + | Najma Xiong | ECON | Unknown | | + + + + + | Hector Mack | ECON | [address] | | | | | [place] | | | | | [address] | | + + + + + Care Team Providers + +------+ + | Care Collections Curator Name | Role | Phone | + +------+ + | Tuan Chan MD | PCP | | + +------+ + Encounter Details +--------+ + + + + | Date | Type | Department | Care Team | Description | +--------+ + + + + | 11/02/ | Orders Only | [facility] | Provider, | | | 2019 | | SYSTEM GENERIC OP | [address] | | | | | CONVERSION [address] | [address] | | | | | [address] [place], [place] | [place] [address] | | | | | [address] | | | | | | [phone] | | | +--------+ + + + [...] [place] | | | | | | [address] | | | | | | | | +--------+---------+ + + + documented as of this encounter Visit Diagnoses Not on filedocumented in this encounter"
--- OUTSIDE RECORDS SUMMARY | ~2019-09-05 | XMS | Encounter Summary ---
Demographics + + + | Address | [address] | | | [place] [address] | + + + | Home Phone [...] [place] | | | | | [address] | | + + + + + Care Team Providers + +------+ + | Care Dispute Coordinator Name | Role | Phone | [...] removal) | | | | Surgery at [facility] [address] | | | | | | [address] | | | | | | Mailcode: CH5P | | | | | | [facility] | | | | | | and Healing, | | | | | | Building 1 | | | | | | Floor [place], [place] | | | | | | [address] | | | | | | [phone] | | | +--------+ + + + [...]
--- OUTSIDE RECORDS SUMMARY | ~2019-09-05 | XMS | Encounter Summary ---
Demographics + + + | Address | [address] | | | [place] [address] | + + + | Home Phone [...] [place] | | | | | [address] | | + + + + + Care Team Providers + +------+ + | Care Solicitor Patent Name | Role | Phone | + +------+ + | Tuan Chan MD | PCP | | + +------+ + Encounter Details +--------+ + + + + | Date | Type | Department | Care Team | Description | +--------+ + + + + | 03/11/ | Results | Urology Fertility | Renato Chow MD | | | 2010 | Only | [address] | | | | | | Mailcode: CH10U | | | | | | [facility] | | | | | | and Healing, | | | | | | Building | | | | | | Floor [place], [place] | | | | | | [address] | | | | | | [phone] | | | +--------+ + + + [...] + | [facility] | [address] | [place] [address] | | | PATHOLOGY | [address] | | | + + + + + documented in this encounter Visit Diagnoses Not on filedocumented in this encounter"
--- OUTSIDE RECORDS SUMMARY | ~2019-09-05 | XMS | Encounter Summary ---
Demographics + + + | Address | [address] | | | [place] [address] | + + + | Home Phone [...] [place] | | | | | [address] | | + + + + + Care Team Providers + +------+ + | Care Branch Service Leader Name | Role | Phone | [...] as of this encounter Discharge Summaries Interface, Lens Finisher In - 02/20/2006 2:34 AM [facility] [id number] ARETHA RAE [id number] Admission Date: 02/05/2006 Discharge Date: 02/09/2006 Staff [...] of discharge, she was seen by our comp field case manager who assisted her with a voucher for a motel. She will stay in the local area for the next 2 days before returning home to [place]. The patient was seen by Nutrition and [...] Sana Timmons M.D. Chey Escobar M.D. / [id number] / [id number] / [id number] / [id number] E: 02/11/2006 cmw cc: Tuan Chan M.D. FAX: [phone] Reviewed or Edited By Sana Timmons on 02-19-2006 Electronically signed by Herberth Brambila 02-19-2006 11:24:08 AM documented i n this encounter Plan of Treatment Not on filedocumented as of this encounter Visit Diagnoses Not on filedocumented in this encounter"
--- OUTSIDE RECORDS SUMMARY | ~2019-09-05 | XMS | Encounter Summary ---
Demographics + + + | Address | [address] | | | [place] [address] | + + + | Home Phone [...] [place] | | | | | [address] | | + + + + + Care Team Providers + +------+ + | Care Financial Supervisor Name | Role | Phone | [...] as of this encounter Progress Notes Interface, Instrument Technician Helper In - 02/15/2006 2:34 AM [facility] [id number] RAE [id number] Referred From and Faxed To: Tim Paula [...] 4:01. Length of Visit: Sixty-one minutes of ehrl-un-wdel consult with the patient and her friend Lulu. Subjective: This patient is referred by Dr. aPpi Johnson and is going to be seen at Surgery tomorrow February 05, 2006. I am not sure what the preparatory plan was prior to surgery, but I am seeing her today prior to surgery tomorrow. Objective: A 60-year-old female. Please see complete history and physical done by both [facility]. The patient does [...] with myself, dietitian post-surgery. She is from [place]. This visit can be scheduled when she has a followup appointment with her surgeon here at [facility] Patient's Comprehension: This visit was incredibly [...] friend Lulu. Caitlyn Chery R.D., L.D. / [id number] / [id number] / [id number] / cc: Chey Milan A.NSonyPSony Electronically signed by Caitlyn Chery 02-14-2006 01:37:50 PM documented i n this encounter Plan of Treatment Not on filedocumented as of this encounter Visit Diagnoses Not on filedocumented in this encounter"
--- OUTSIDE RECORDS SUMMARY | ~2019-09-05 | XMS | Encounter Summary ---
Demographics + + + | Address | [address] | | | [place] [address] | + + + | Home Phone [...] + | Organization | [facility] | | [...] [place] | | | | | [address] | | + + + + + | Najma Xiong | ECON | Unknown | | + + + + + | Hector Mack | ECON | [address] | | | | | [place] | | | | | [address] | | + + + + + Care Team Providers + +------+ + | Care Payroll Specialist Name | Role | Phone | + +------+ + PCP | Unavailable | + +------+ + Encounter Details +--------+ + + + + | Date | Type | Department | Care Team | Description | +--------+ + + + + | 08/06/ | Hospital | [facility] GENER[facility] OP | Tuan Chan, | LUMBOSACRAL NEURITIS | | 2005 | Encounter | [address] | [address] | | | | [address] | [place], [place] | | | | | [place], [place] | [address] | | | | | [address] | [phone] | | | | | [phone] | | | +--------+ + + + [...] [place] | | | | | | [address] | | | | | | | | +--------+---------+ + + + documented as of this encounter Visit Diagnoses + + | Diagnosis | + + | Thoracic or lumbosacral neuritis or radiculitis, unspecified | + + documented in this encounter"
--- OUTSIDE RECORDS SUMMARY | ~2019-09-05 | XMS | Encounter Summary ---
Demographics + + + | Address | [address] | | | [place] [address] | + + + | Home Phone [...] Author | [facility] | | | and [place] | + + + | Organization | [facility] [...] [place] | | | | | [address] | | + + + + + | Najma Xiong | ECON | Unknown | | + + + + + | Hector Mack | ECON | [address] | | | | | [place] | | | | | [address] | | + + + + + Care Team Providers + +------+ + | Care Staff Development Educator Name | Role | Phone | + +------+ + PCP | Unavailable | + +------+ + Encounter Details +--------+ + + + + | Date | Type | Department | Care Team | Description | +--------+ + + + + | 02/25/ | Hospital | [facility] | Colton Long, | | | 2000 | Encounter | MED CTR LABORATORY | [address] | | | | | [address] | [place] | | | | | [place] | [address] | | | | | [address] | | | | | | [phone] | | | +--------+ + + + [...]
--- OUTSIDE RECORDS SUMMARY | ~2019-09-05 | XMS | Encounter Summary ---
Demographics + + + | Address | [address] | | | [place] [address] | + + + | Home Phone [...] [place] | | | | | [address] | | + + + + + Care Team Providers + +------+ + | Care Enamel Machine Operator Name | Role | Phone [...] | | | obstructing | [facility] | [address] | | | | | calculus at | [address] | [address] | | | | | [facility] | [facility] | [place], [place] | | | | | MARYAN. | [address] | [address] | | | | | | [address] | | | | | | | [place] | | | | | | | [place] [address] | | | | | | | Phone: | | | | | | | [phone] | | | | | | | Fax: | | | | | | | [phone] | | +--------+--------+ + + + + [...] | | specified | | | | [facility] | | pre-operative | | | | and Healing, | | examination | | | | Building | | | | | | [place], [place] | | | | | | [address] | | | | | | [phone] | | | +--------+---------+ + + + [...] surgeries scheduled to take place on the [place] at the [facility]: Surgeries scheduled in the [facility] ([address] [place] [address]): registration is located on the 4th floor of [facility] (Day Surgery). Surgeries scheduled in the [facility]: registration is located on the 9th floor. Surgeries scheduled in [facility]: registration is located on the 6th floor. Surgeries scheduled in the [facility]: registration is located i n the [facility] lobby on the first floor. 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 She has been maintained of Plavx since then but stopped it over a week ago. She has no cardiac symptoms especially since w eight loss from 550 to 190 after gastric bypass in 2005. Pannus removed more recently by Dr. Gia Amin at [facility]. She suffers from chronic back pain [...] 1 Years of Education: N/A Occupational History [employer] Social History Main Topics Smoking status: Former [...] + + + | Test performed by: [facility] | [facility] | | Outpatient Lab CH[address] [address] | DEPARTMENT OF | | | PATHOLOGY | + + + + + + + + | Performing | Address | City/State/Zipcode | Phone Number | | Organization | | | | + + + + + | [facility] DEPARTMENT | [address] | [place] [address] | | | PATHOLOGY | [address] [...] + + + | Test performed by: [facility] | [facility] | | Outpatient Lab [facility] [address] [place], [place] [address] | DEPARTMENT OF | | Sent to Core Lab. | PATHOLOGY | + + + + + + + + | Performing | Address | City/State/Zipcode | Phone Number | | Organization | | | | + + + + + | [facility] DEPARTMENT OF | [address] | [place] [address] | | | PATHOLOGY | [address] | | | + + + + + 12 LEAD ECG (03/11/2011 4:58 PM PST) + + + + + + | Component | Value | Ref Range | Performed | Pathologist | | | | | At | Signature | + + + + + + | VENTRICULAR | 62 | BPM | [facility] DEPT | | | RATE | [...] view image for the detailed interpretation from [place] results. | CARDIOLOGY | + + + + + + + + | Performing | Address | City/State/Zipcode | Phone Number | | Organization | | | | + + + + + | [facility] DEPT OF | [address] | [place], [place] | | | CARDIOLOGY | [address] | [address] | | + + + + + [...] | | | | | | [facility] | | | | | | [place] | | | | | | Permanente | | | | | | [address] [address] [facility] | | | | | | [place], [place] | | | | | | [address] | | | | + + + + + + + + | Specimen | + + | Urine - Voided | + + + + + + + | Performing | Address | City/State/Zipcode | Phone Number | | Organization | | | | + + + + + | [facility] | [address] | [place] [address] | | | LAB-MICRO | | | [...] + + | [facility] | [address] | [place] [address] | | | OF CARE TESTS | | | | + + + + + documented in this encounter Visit Diagnoses + + | Diagnosis | + + | Kidney stone - Primary Calculus of kidney | + + | Other specified pre-operative examination | + + documented in this encounter
--- OUTSIDE RECORDS SUMMARY | ~2019-09-05 | XMS | Encounter Summary ---
Demographics + + + | Address | [address] | | | [place] [address] | + + + | Home Phone [...] [place] | | | | | [address] | | + + + + + Care Team Providers + +------+ + | Care Heel Sander Name | Role | Phone | [...] [id number] | | | | | | [place], [place] | | | | | | [address] | | | | | | [phone] | | | +--------+ + + + [...] + | [place] DEPARTMENT OF | [address] [facility] | [place] [address] | | | PATHOLOGY | [address] | | | + + + + + | [place] DEPARTMENT OF | [address] [facility] | [place] [address] | | | PATHOLOGY | [address] [...] | + + + + + | [facility] | [facility] | [place] [address] | | | PATHOLOGY | [address] | | | + + + + + | [facility] | [facility] | [place] [address] | | | PATHOLOGY | [address] [...] DEPARTMENT OF | [address] | [place] [address] | | | PATHOLOGY | [address] | | | + + + + + | [facility] DEPARTMENT OF | [address] | [place] [address] | | | PATHOLOGY | [address] [...] + | [facility] DEPARTMENT OF | [address] | [place] [address] | | | PATHOLOGY | [address] | | | + + + + + | [facility] DEPARTMENT | [address] | [place] [address] | | | PATHOLOGY | [address] [...] | + + + + + | [facility] | [address] [facility] | [place] [address] | | | PATHOLOGY | [address] | | | + + + + + | [facility] | [facility] | [place] [address] | | | PATHOLOGY | [address] [...] DEPARTMENT OF | [address] | [place] [address] | | | PATHOLOGY | [address] | | | + + + + + | [facility] DEPARTMENT OF | [address] | [place] [address] | | | PATHOLOGY | [address] | | | + + + + + BASIC METABOLIC SET (02/08/2006 6:43 AM PST) + +---------+ + + + | Component | Value | Ref Range | Performed | Pathologist | | | | | At | Signature | + +---------+ + + + | GLUCOSE, | 102 | 65 - 110 mg/dL | [facility] | | | PLASMA | [...] | + + + + + | [facility] | [address] [facility] | [place] [address] | | | PATHOLOGY | [address] | | | + + + + + | [facility] DEPARTMENT OF | [address] [facility] | [place] [address] | | | PATHOLOGY | [address] [...] | + + + + + | [facility] | [facility] [address] | [place] [address] | | | PATHOLOGY | [address] | | | + + + + + | [facility] | [address] [place] [address] | [place] [address] | | | PATHOLOGY | [address] | | | + + + + + PHOSPHORUS, PLASMA (02/08/2006 4:30 AM PST) + +-------+ + + + | Component | Value | Ref Range | Performed | Pathologist | | | | | At | Signature | + +-------+ + + + | PHOSPHORUS, | 2.7 | 2.4 - 4.7 mg/dL | [facility] [...] DEPARTMENT OF | [address] | [place] [address] | | | PATHOLOGY | [address] | | | + + + + + | [facility] DEPARTMENT | [address] | [place] [address] | | | PATHOLOGY | [address] | | | + + + + + MAGNESIUM, PLASMA (02/08/2006 4:30 AM PST) + +-------+ + + + | Component | Value | Ref Range | Performed | Pathologist | | | | | At | Signature | + +-------+ + + + | MAGNESIUM,P | 2.0 | 1.8 - 2.5 mg/dL | [facility] | | | LASMA | | [...] | + + + + + | [facility] | [address] [facility] | [place] [address] | | | PATHOLOGY | [address] | | | + + + + + | [facility] | [address] [facility] | [place] [address] | | | PATHOLOGY | [address] [...] + | [facility] DEPARTMENT OF | [facility] [address] | [place] [address] | | | PATHOLOGY | [address] | | | + + + + + | [place] DEPARTMENT OF | [facility] [address] | [place] [address] | | | PATHOLOGY | [address] [...] + | [facility] DEPARTMENT OF | [address] [facility] | [place] [address] | | | PATHOLOGY | [address] | | | + + + + + | [facility] DEPARTMENT OF | [address] | [place] [address] | | | PATHOLOGY | [address] [...] + | [facility] DEPARTMENT OF | [address] [facility] | [place] [address] | | | PATHOLOGY | [address] | | | + + + + + | [facility] DEPARTMENT OF | [address] [facility] | [place] [address] | | | PATHOLOGY | [address] [...] | [facility] DEPARTMENT | [facility] | [place] [address] | | | PATHOLOGY | [address] | | | + + + + + | [facility] DEPARTMENT OF | [facility] | [place] [address] | | | PATHOLOGY | [address] [...] + | [facility] DEPARTMENT OF | [address] [facility] | [place] [address] | | | PATHOLOGY | [address] | | | + + + + + | [place] DEPARTMENT OF | [address] [facility] | [place] [address] | | | PATHOLOGY | [address] [...] | Staff or dialysis draw required. | [facility] | | | DEPARTMENT OF | | | PATHOLOGY | + + + + + + + + | Performing | Address | City/State/Zipcode | Phone Number | | Organization | | | | + + + + + | [place] DEPARTMENT OF | [address] | [place] [address] | | | PATHOLOGY | [address] | | | + + + + + | [facility] DEPARTMENT OF | [address] | [place] [address] | | | PATHOLOGY | [address] | | | + + + + + PHOSPHORUS, PLASMA (02/07/2006 4:30 AM PST) + +-------+ + + + | Component | Value | Ref Range | Performed | Pathologist | | | | | At | Signature | + +-------+ + + + | PHOSPHORUS, | 3.4 | 2.4 - 4.7 mg/dL | [facility] | | | PLASMA | [...] | + + + + + | [facility] | [address] [facility] | [place] [address] | | | PATHOLOGY | [address] | | | + + + + + | [facility] | [facility] | [place] [address] | | | PATHOLOGY | [address] [...] + | [facility] DEPARTMENT OF | [address] | [place] [address] | | | PATHOLOGY | [address] | | | + + + + + | [facility] DEPARTMENT OF | [address] | [place] [address] | | | PATHOLOGY | [address] [...] 10.2 | 4.4 - 11.0 K/cu | [facility] | | | COUNT | | mm [...] | + + + + + | [facility] | [address] [facility] | [place] [address] | | | PATHOLOGY | [address] | | | + + + + + | [facility] DEPARTMENT OF | [address] [facility] | [place] [address] | | | PATHOLOGY | [address] [...] [facility] DEPARTMENT | [address] | [place] [address] | | | PATHOLOGY | [address] | | | + + + + + | [facility] OF | [address] | [place] [address] | | | PATHOLOGY | [address] | | | + + + + + ESOPHAGRAM (02/06/2006 4:19 PM PST) + + + + + + | Component | Value | Ref Range | Performed | Pathologist | | | | | At | Signature | + + + + + + | ESOPHAGUS | Radiologist 1: | | | | | | LLUVIA NASHCase No. | | | | | | [phone], medical | | | | | | record [id number], ICD-9 | | | | | | [...] | + + + + + | [facility] | [facility] | [place] [address] | | | PATHOLOGY | [address] | | | + + + + + | [facility] | [facility] | [place] [address] | | | PATHOLOGY | [address] [...] [facility] DEPARTMENT | [address] [facility] | [place] [address] | | | PATHOLOGY | [address] | | | + + + + + | [facility] DEPARTMENT OF | [address] [facility] | [place] [address] | | | PATHOLOGY | [address] [...] | + + + + + | [facility] | [address] | [place] [address] | | | PATHOLOGY | [address] | | | + + + + + | [facility] | [facility] [address] | [place] [address] | | | PATHOLOGY | [address] [...] + | [facility] DEPARTMENT OF | [address] | [place] [address] | | | PATHOLOGY | [address] | | | + + + + + | [facility] DEPARTMENT OF | [address] | [place] [address] | | | PATHOLOGY | [address] [...] + | [facility] DEPARTMENT OF | [address] | [place] [address] | | | PATHOLOGY | [address] | | | + + + + + | [facility] DEPARTMENT OF | [address] | [place] [address] | | | PATHOLOGY | [address] [...] cmnt | 1.8 - 2.5 mg/dL | [facility] | | | LASMA | | [...] DEPARTMENT OF | [address] | [place] [address] | | | PATHOLOGY | [address] | | | + + + + + | [facility] DEPARTMENT OF | [address] | [place] [address] | | | PATHOLOGY | [address] [...] DEPARTMENT OF | [address] | [place] [address] | | | PATHOLOGY | [address] | | | + + + + + | [facility] DEPARTMENT OF | [address] | [place] [address] | | | PATHOLOGY | [address] [...] | + + + + + | [facility] OF | [address] | [place] [address] | | | PATHOLOGY | [address] | | | + + + + + | [facility] OF | [address] | [place] [address] | | | PATHOLOGY | [address] [...] | + + + + + | [facility] | [address] [facility] | [place] [address] | | | PATHOLOGY | [address] | | | + + + + + | [facility] | [address] [facility] | [place] [address] | | | PATHOLOGY | [address] [...] by | | | | | | [facility] | | | | | | [facility]. | | | | + + + + + + + + | Specimen | + + | | + + + + + + + | Performing | Address | City/State/Zipcode | Phone Number | | Organization | | | | + + + + + | [facility] | [address] | [place] [address] | | | LABORATORY | | | | + + + + + documented in this encounter Visit Diagnoses Not on filedocumented in this encounter"
--- OUTSIDE RECORDS SUMMARY | ~2019-09-05 | XMS | Encounter Summary ---
Demographics + + + | Address | [address] | | | [place] [address] | + + + | Home Phone [...] [place] | | | | | [address] | | + + + + + Care Team Providers + +------+ + | Care Medical Aides Teacher Name | Role | Phone | [...] [facility] | | | | | | [facility] | | | | | | and Sonal, | | | | | | Building [address], [address]th | | | | | | Floor [place], [place] | | | | | | [address] | | | | | | [phone] | | | +--------+---------+ + + + [...]
--- OUTSIDE RECORDS SUMMARY | ~2019-09-05 | XMS | Encounter Summary ---
Demographics + + + | Address | [address] | | | [place] [address] | + + + | Home Phone [...] [place] | | | | | [address] | | + + + + + Care Team Providers + +------+ + | Care Data Systems Manager Name | Role | Phone | + +------+ + | Tuan Chan MD | PCP | | + +------+ + Encounter Details +--------+ + + + + | Date | Type | Department | Care Team | Description | +--------+ + + + + | 08/05/ | Results | Dermatology | Khoa Manuel, | | | 2008 | Only | Medical at [facility] [address] | ,PhD Gloria | | | | | Hermila Kolb | Allergy Asthma | | | | | Mailcode: CH16D | Dermatology [address] | | | | | [facility] | [facility] | | | | | and Healing, | [place] [address] | | | | | [facility] | [phone] | | | | | Floor [place], [place] | | | | | | [address] | | | | | | [phone] | | | +--------+ + + + [...] | | Results for this | | [facility]) | e | | | procedure are [...] | | | | | MNT) | [id number] | | | | | | DESCRIPTION:Punch [...] Jr., | | | | | | CheyPathologistRenoi | | | | | | brittany Signed 08/15/2008 | | | | + + + + + + + + | Specimen | + + | Other | + + + + + + + | Performing | Address | City/State/Zipcode | Phone Number | | Organization | | | | + + + + + | [facility] | Mailcode CH5D [address] | [place] [address] | | | DERMATOPATHOLOGY | [address] | | | + + + + + documented in this encounter Visit Diagnoses Not on filedocumented in this encounter"
--- OUTSIDE RECORDS SUMMARY | ~2019-09-05 | XMS | Encounter Summary ---
Demographics + + + | Address | [address] | | | [place] [address] | + + + | Home Phone [...] | [facility] | | | and [place] | + + + | Organization | [facility] | [...] [place] | | | | | [address] | | + + + + + | Najma Xiong | ECON | Unknown | | + + + + + | Hector Mack | ECON | [address] | | | | | [place] | | | | | [address] | | + + + + + Care Team Providers + +------+ + | Care Housecalls Nurse Name | Role | Phone | + +------+ + PCP | Unavailable | + +------+ + Encounter Details +--------+ + + + + | Date | Type | Department | Care Team | Description | +--------+ + + + + | 01/24/ | Hospital | [facility] | | | | 1997 - | Encounter | MED CTR MED ONC | | | | | | [address] | | | | 01/27/ | | [place] [address] | | | | 1997 | | [phone] | | | +--------+ + + + [...] [place] | | | | | | [id number] | | | | | | | | +--------+---------+ + + + documented as of this encounter Visit Diagnoses Not on filedocumented in this encounter"
--- OUTSIDE RECORDS SUMMARY | ~2019-09-05 | XMS | Encounter Summary ---
Demographics + + + | Address | [address] | | | [place] [address] | + + + | Home Phone [...] | [facility] | [...] [place] | | | | | [address] | | + + + + + | Najma Xiong | ECON | Unknown | | + + + + + | Hector Mack | ECON | [address] | | | | | [place] | | | | | [address] | | + + + + + Care Team Providers + +------+ + | Care Jacquard Loom Card Changer Name | Role | Phone | + +------+ + PCP | Unavailable | + +------+ + Encounter Details +--------+ + + + + | Date | Type | Department | Care Team | Description | +--------+ + + + + | 09/07/ | Hospital | [facility] GENERIC IP | Conversion | Chest pain | | 2013 | Encounter | CONVERSION [address] | Transaction, | | | | | [address] | Provider Unknown | | | | | [place], [place] | [phone] | | | | | [address] | | | | | | [phone] | | | +--------+ + + + [...] [place] | | | | | | [address] | | | | | | | [...]
--- OUTSIDE RECORDS SUMMARY | ~2019-09-05 | XMS | Encounter Summary ---
Demographics + + + | Address | [address] | | | [place] [address] | + + + | Home Phone [...] [place] | | | | | [address] | | + + + + + Care Team Providers + +------+ + | Care Patient Service Specialist Name | Role | Phone | + +------+ + | Tuan Chan MD | PCP | | + +------+ + Encounter Details +--------+ + + + + | Date | Type | Department | Care Team | Description | +--------+ + + + + | 09/07/ | Hospital | Cardiac | Sjh, Car Ecg Tech | | | 2008 | Encounter | Non-Invasive Testing | [address] | | | | | at [facility] | [facility] | | | | | [address] | [place] [address] | | | | | [address] | | | | | | [place], [address] [place] [address] | | | | | | [place], [place] | | | | | | [address] | | | | | | [phone] | | | +--------+ + + + [...] uncontrolled([id number]) | | | | | | ([facility]) Obesity | | | | | | [...] view image for the detailed interpretation from [employer] results. | CARDIOLOGY | | | | + + + + + + + + | Performing | Address | City/State/Zipcode | Phone Number | | Organization | | | | + + + + + | [facility] DEPT OF | [address] | [place], [place] | | | CARDIOLOGY | [address] | [address] | | + + + + + | [facility] DEPT OF | [address] | [place] | | | CARDIOLOGY | [address] [facility] | [address] | | + + + + + documented in this encounter Visit Diagnoses Not on filedocumented in this encounter
--- OUTSIDE RECORDS SUMMARY | ~2019-09-05 | XMS | Encounter Summary ---
Demographics + + + | Address | [address] | | | [place] [address] | + + + | Home Phone [...] + + | Organization | [facility] | | [...] [place] | | | | | [address] | | + + + + + | Najma Xiong | ECON | Unknown | | + + + + + | Hector Mack | ECON | [address] | | | | | [place] | | | | | [address] | | + + + + + Care Team Providers + +------+ + | Care Balloon Dipper Name | Role | Phone | + +------+ + PCP | Unavailable | + +------+ + Encounter Details +--------+ + + + + | Date | Type | Department | Care Team | Description | +--------+ + + + + | 07/07/ | Hospital | [facility] | Isaias Ramirez, | | | 1996 | Encounter | MED CTR XRAY [address] | MD [address] [facility] | | | | | [place] | [place] | | | | | [place] [address] | [address] | | | | | [phone] | | | +--------+ + + + [...]
--- OUTSIDE RECORDS SUMMARY | ~2019-09-05 | XMS | Encounter Summary ---
Demographics + + + | Address | [address] | | | [place] [address] | + + + | Home Phone [...] + + | Organization | [facility] | [...] [place] | | | | | [address] | | + + + + + | Najma Xiong | ECON | Unknown | | + + + + + | Hector Mack | ECON | [address] | | | | | [place] | | | | | [address] | | + + + + + Care Team Providers + +------+ + | Care Primer Charger Name | Role | Phone | + +------+ + PCP | Unavailable | + +------+ + Encounter Details +--------+ + + + + | Date | Type | Department | Care Team | Description | +--------+ + + + + | 02/18/ | Hospital | [facility] | | | | 2004 | Encounter | MED CTR EMERGENCY | | | | | | CENTER [address] | | | | | | [place] | | | | | | [address] | | | | | | [phone] | | | +--------+ + + + [...] [place] | | | | | | [id number] | | | | | | | | +--------+---------+ + + + documented as of this encounter Visit Diagnoses Not on filedocumented in this encounter"
--- OUTSIDE RECORDS SUMMARY | ~2019-09-05 | XMS | Encounter Summary ---
Demographics + + + | Address | [address] | | | [place] [address] | + + + | Home Phone [...] [place] | | | | | [address] | | + + + + + Care Team Providers + +------+ + | Care Ethnographer Name | Role | Phone | + [...] | 2008 | Visit | Medical at [facility] [address] | FABIO Figueredo [address] | (Primary Dx) | | | | [address] | [address] [place], | | | | | Mailcode: 16D | [place] [address] | | | | | [facility] | [phone] | | | | | and Healing, | | | | | | Building | | | | | | Floor [place], [place] | | | | | | [address] | | | | | | [phone] | | | +--------+---------+ + + + [...] in 06/06 --s/p CABG in 2000 in [facility] --s/p cholecystectomy 35 years ago --s/p [...] weeks Julia Buckley PA-C Department of Dermatology [facility] documented in this encounter Plan of Treatment Not on filedocumented as of this encounter Visit Diagnoses + + | Diagnosis | + + | 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
--- OUTSIDE RECORDS SUMMARY | ~2019-09-05 | XMS | Encounter Summary ---
Demographics + + + | Address | [address] | | | [place] [address] | + + + | Home Phone | | + + + | Preferred Language | Unknown | + + + | Marital Status | | + + + | Restoration Affiliation | 1077 | + + + | Race | Unknown | + + + | Ethnic Group | Unknown | + + + Author + + + | Author | [facility] | | | and [place] | + + + | Organization | [facility] | | | and [place] [...] [place] | | | | | [address] | | + + + + + | Najma Xiong | ECON | Unknown | | + + + + + | Hector Mack | ECON | [address] | | | | | [place] | | | | | [address] | | + + + + + Care Team Providers + +------+ + | Care Supervisor Files Name | Role | Phone | + +------+ + PCP | Unavailable | + +------+ + Encounter Details +--------+ + + + + | Date | Type | Department | Care Team | Description | +--------+ + + + + | 10/16/ | Hospital | [facility] | Lalo Londono MD | | | 2005 | Encounter | MED CTR GENERIC OP | [address], [place] | | | | | CONV DEPT [address] | [address] [place], [place] | | | | | [place], | [address] | | | | | [place] [address] | | | | | | [phone] | | | +--------+ + + + [...]
--- OUTSIDE RECORDS SUMMARY | ~2019-09-05 | XMS | Encounter Summary ---
Demographics + + + | Address | [address] | | | [place] [address] | + + + | Home Phone [...] [place] | | | | | [address] | | + + + + + Care Team Providers + +------+ + | Care Hairspring Adjuster Name | Role | Phone | [...] | Dyslipidemia; | | | | Mailcode: [id number] | | Dysmetabolic | | | | [facility] | | Syndrome X; Sleep | | | | [address], | | Apnea; Gout; [place] Circ | | | | [place] [address] | | Dis Type II, | | | | [phone] | | Uncontrolled (HCC) | +--------+ + [...] | + + + + + | [facility] | [address] | [place] [address] | | | PATHOLOGY | [address] | | | + + + + + | [facility] | [address] | [place] [address] | | | PATHOLOGY | [address] | | | + + + + + documented in this encounter Visit Diagnoses + + | Diagnosis | + + | CAD (coronary artery disease) Coronary atherosclerosis of unspecified type of vessel, | | united keetoowah or graft | + + | Dyslipidemia [...]
--- OUTSIDE RECORDS SUMMARY | ~2019-09-05 | XMS | Encounter Summary ---
Demographics + + + | Address | [address] | | | [place] [address] | + + + | Home Phone [...] | [facility] | | | and [place] | + + + | Organization | [facility] | | | and [place] [...] [place] | | | | | [address] | | + + + + + | Najma Xiong | ECON | Unknown | | + + + + + | Hector Mack | ECON | [address] | | | | | [place] | | | | | [address] | | + + + + + Care Team Providers + +------+ + | Care Campus President Name | Role | Phone | + +------+ + PCP | Unavailable | + +------+ + Encounter Details +--------+ + + + + | Date | Type | Department | Care Team | Description | +--------+ + + + + | 01/16/ | Hospital | [facility] | | | | 2000 | Encounter | MED CTR XRAY [address] | | | | | [address] | | | | | | [place] [address] | | | | | | [phone] | | | +--------+ + + + [...] [place] | | | | | | [address] | | | | | | | | +--------+---------+ + + + documented as of this encounter Visit Diagnoses Not on filedocumented in this encounter"
--- OUTSIDE RECORDS SUMMARY | ~2019-09-05 | XMS | Encounter Summary ---
Demographics + + + | Address | [address] | | | [place] [address] | + + + | Home Phone [...] | Author | [facility] | | | and [place] | + + + | Organization | [facility] | [...] [place] | | | | | [address] | | + + + + + | Najma Xiong | ECON | Unknown | | + + + + + | Hector Mack | ECON | [address] | | | | | [place] | | | | | [address] | | + + + + + Care Team Providers + +------+ + | Care [employer] Supervisor Name | Role | Phone | + +------+ + PCP | Unavailable | + +------+ + Encounter Details +--------+ + + + + | Date | Type | Department | Care Team | Description | +--------+ + + + + | 12/03/ | Hospital | [facility] | | | | 1997 - | Encounter | [facility] | | | | | | [address] | | | | 12/11/ | | [place] [id number] | | | | 1997 | | [phone] | | | +--------+ + + + [...] CINTRON | | | | | | [phone] | | | | | | | | +--------+---------+ + + + documented as of this encounter Visit Diagnoses Not on filedocumented in this encounter"
--- OUTSIDE RECORDS SUMMARY | ~2019-09-05 | XMS | Encounter Summary ---
Demographics + + + | Address | [address] | | | [place] [address] | + + + | Home Phone [...] [place] | | | | | [address] | | + + + + + Care Team Providers + +------+ + | Care Java Project Manager Name | Role | Phone [...] | | | | | | [place] [address] | | | +--------+ + + + [...] | | | | Patient: GERMAINE CARIAS [facility] Rec: [id number] Sex F Bdate: 1945 | | Date/Time Data | | Entered Into [facility] | | Anesth PostOp | | Surgery Date [id number] 02/06/06 11:10 | | Anesthesiologist OLEG ASCENCIO 02/06/06 11:10 | | Resident Anesthesiolog JULIEN FRYE 02/06/06 11:10 | | | + + documented in this encounter Visit Diagnoses Not on filedocumented in this encounter"
--- OUTSIDE RECORDS SUMMARY | ~2019-09-05 | XMS | Encounter Summary ---
Demographics + + + | Address | [address] | | | [place] [address] | + + + | Home Phone [...] + | Organization | [facility] [...] [place] | | | | | [address] | | + + + + + | Najma Xiong | ECON | Unknown | | + + + + + | Hector Mack | ECON | [address] | | | | | [place] | | | | | [address] | | + + + + + Care Team Providers + +------+ + | Care Catheter Finisher And Inspector Name | Role | Phone | + +------+ + PCP | Unavailable | + +------+ + Encounter Details +--------+ + + + + | Date | Type | Department | Care Team | Description | +--------+ + + + + | 07/23/ | Hospital | [facility] | Duarte Moon MD | | | 2012 | Encounter | [facility] | [address] | | | | | MEDICAL CL[facility] [address] | [place], [place] | | | | | [address] [facility], | [address] | | | | | [place] [address] | | | | | | [phone] | | | +--------+ + + + [...]
--- OUTSIDE RECORDS SUMMARY | ~2019-09-05 | XMS | Encounter Summary ---
Demographics + + + | Address | [address] | | | [place] [address] | + + + | Home Phone [...] [place] | | | | | [address] | | + + + + + Care Team Providers + +------+ + | Care Staff Midwife Name | Role | Phone | [...] [facility] | | | | | | [facility] | | | | | | and Healing, | | | | | | Building 1, 6th | | | | | | Floor [place], [place] | | | | | | [address] | | | | | | [phone] | | | +--------+---------+ + + + [...] The next will be in 2 [address] [facility] time. documented in this encounter Plan of Treatment Not on filedocumented as of this encounter Visit Diagnoses + + | Diagnosis | + + | Achalasia Achalasia and cardiospasm | + + | Obesity Obesity, unspecified | + + documented in this encounter
--- OUTSIDE RECORDS SUMMARY | ~2019-09-05 | XMS | Encounter Summary ---
Demographics + + + | Address | [address] | | | [place] [address] | + + + | Home Phone [...] [place] | | | | | [address] | | + + + + + Care Team Providers + +------+ + | Care Music Theory Teacher Name | Role | Phone | [...] 09/07/ | Office | Preoperative | 1, [facility]ar [facility] [address] | CAD (Coronary Artery | | 2008 | Visit | Medicine Clinic at | [address] | Disease); Gout; DM | | | | [facility] 4th Floor [address] | [place] [address] | Circ Dis Type II, | | | | [address] | | Uncontrolled (HCC); | | | | Mailcode: CH4S | | Obesity; Achalasia; | | | | [facility] | | Panniculitis; | | | | and Healing, | | Bruise; Other | | | | Building 1,4th Floor | | Specified | | | | [place], [place] | | Pre-Operative | | | | [address] | | Examination | | | | [phone] | | | +--------+---------+ + + + [...] | + + +--------+ + + | ID COLLECTION VENOUS | Procedures | Routin | [...] uncontrolled(250.72) | | | | | | ([facility]) Obesity | | | | [...] | + + + + + | [facility] | [address] | [place] [address] | | | PATHOLOGY | [address] | | | + + + + + | [facility] | [address] | [place] [address] | | | PATHOLOGY | [address] [...] [facility] [place] [place] | [address] | [place] [address] | | | PATHOLOGY | [address] | | | + + + + + | [facility] [place] | [address] | [place] [address] | | | PATHOLOGY | [address] | | | + + + + + INR (09/07/2008 3:43 PM PDT) + + + + + + | Component | Value | Ref Range | Performed | Pathologist | | | | | At | Signature | + + + + + + | INR | 1.01Comment: | 0.90 - 1.20 INR | [facility] | | | | INR Therapeutic ranges [...] DEPARTMENT OF | [address] | [place] [address] | | | PATHOLOGY | [address] | | | + + + + + | [facility] DEPARTMENT OF | [address] | [place] [address] | | | PATHOLOGY | [address] [...] (H) | 60 - 99 mg/dL | [facility] | | | PLASMA | | [...] Performed At | + + + | [id number] Estimated GFR > 60 mL/min/1.73 sq m if non- | [facility] | | Cameroonian [id number] Estimated GFR > 60 mL/min/1.73 sq m if | DEPARTMENT | | Cameroonian GFR is estimated using the MDRD equation [...] [facility] [place] | [address] | [place] [address] | | | PATHOLOGY | [address] | | | + + + + + | [facility] [place] | [address] | [place] [address] | | | PATHOLOGY | [address] [...] | | | | | SHAKIRA GARCIA (0511) | | | | | | on [...] view image for the detailed interpretation from [employer] results. | CARDIOLOGY | | | | + + + + + + + + | Performing | Address | City/State/Zipcode | Phone Number | | Organization | | | | + + + + + | [facility] | [address] | [place], [place] | | | CARDIOLOGY | [address] | [address] | | + + + + + | [facility] | [address] | [place], [place] | | | CARDIOLOGY | [address] | [address] | | + + + + + documented in this encounter Visit Diagnoses + + | Diagnosis | + + | CAD (coronary artery disease) Coronary atherosclerosis of unspecified type of vessel, | | little river or graft | + + | [...]
--- OUTSIDE RECORDS SUMMARY | ~2019-09-05 | XMS | Encounter Summary ---
Demographics + + + | Address | [address] | | | [place] [address] | + + + | Home Phone | | + + + | Preferred Language | Unknown | + + + | Marital Status | | + + + | Roman Catholic Affiliation | 1077 | + + + | Race | Unknown | + + + | Ethnic Group | Unknown | + + + Author + + + | Author | [facility] | | | and [place] | + + + | Organization | [facility] | | | and [place] | [...] [place] | | | | | [address] | | + + + + + | Najma Xiong | ECON | Unknown | | + + + + + | Hector Mack | ECON | [address] | | | | | [place] | | | | | [address] | | + + + + + Care Team Providers + +------+ + | Care Hot Stone Setter Name | Role | Phone | + +------+ + | Tuan Chan MD | PCP | | + +------+ + Encounter Details +--------+ + + + + | Date | Type | Department | Care Team | Description | +--------+ + + + + | 06/10/ | Hospital | [facility] | Leandra Chávez, | Unstable angina | | 2016 - | Encounter | MED CTR ICU [address] | MD [address] | ([facility]) (Primary Dx); | | | | [place], | [place], [place] | Non-cardiac chest | | 06/11/ | | [place] [address] | [address] | pain | | 2015 | | [phone] | | | +--------+ + + + [...] Unstable angina . She was transferred from [facility] with ongoing chest pain. Today at lunch time she developed chest discomfort. She was preparing lunch at the time. T preethi discomfort was sharp and stabbing. She was transferred from [facility] on NTG and heparin. The transfer took about 8 hours. The pain has not gone away. She was started on NTG drip a nd heparin. NTG was titrated up. She arrived here on 30 mcg/ min. She still had 4/10 pain . She had no acute ECG changes. She had some dyspnea and diaphoresis no radiation. She was taken to the mill laborer due to ongoing chest pain: PROCEDURES [...] was performed in multiple views using 6 Cambodian JL5 and 5 F AL1 and an [...] medication that helps the stomach empty better. 1348-8947 [employer]. [address] [place] [address], [place] [address]. All righ ts reserved. This information is [...] [place] | | | | | | [address] | | | | | | | [...] PROVIDER: | | | Tuan Chan MD LIQUID FLOOR AND WALL APPLIER: Dr. Leandra Chávez MD, | | | [...] multiple views | | | using 6 Cambodian JL5 and 5 F AL1 and an JESUS diagnostic catheters. | | | A 5 maori pigtail catheter was advanced into the left [...] RECOMMENDATIONS Continue medical Rx Leandra Saira, MD, [facility], | | | [facility] DATE/TIME: 06/12/2015 0:27 | | | 06/12/2015 0:27 Portions of this chart were created with [employer] | | | voice recognition software. Occasional [...] | | chromogenic agar method | | [facility] | | | | | | MEDICAL [...] [address] | [place] | [phone] | | [facility] | | [address] | | | - LABORATORY | | [...] | | | | ERWIN MORALES MD ([id number]) | | | | | | on [...] ST. | [address] | [place] | [phone] | | [facility] | | [address] | | | - LABORATORY | | [...] [address] | [place] | [phone] | | [facility] | | [address] | | | - LABORATORY | | [...] (L) | 0.60 - 1.30 | [facility] | | | | | mg/dL [...] mL/min/1.73m2 | [facility] | | | GAMBIAN | RATE,ESTIMATED | | MEDICAL | | | | mL/min/1.84l2Kyxa than | | CENTER - | | [...] [address] | [place] | [phone] | | [facility] | | [address] | | | - LABORATORY | | [...] [address] | [place] | [phone] | | [facility] | | [address] | | | - LABORATORY | | [...] | | | | | | [employer] | | | | | [...] ST. | [address] | [place], [place] | [phone] | | [facility] | | [address] | | | - LABORATORY | | [...] + | [facility] | [address] | [place] | [phone] | | [facility] | | [address] | | | - LABORATORY | | [...]
--- OUTSIDE RECORDS SUMMARY | ~2019-09-05 | XMS | Encounter Summary ---
Demographics + + + | Address | [address] | | | [place] [address] | + + + | Home Phone | | + + + | Preferred Language | Unknown | + + + | Marital Status | | + + + | Buddhist Affiliation | 1077 | + + + | Race | Unknown | + + + | Ethnic Group | Unknown | + + + Author + + + | Author | [facility] | | | and [place] | + + + | Organization | [facility] | [...] [place] | | | | | [address] | | + + + + + | Najma Xiong | ECON | Unknown | | + + + + + | Hector Mack | ECON | [address] | | | | | [place] | | | | | [address] | | + + + + + Care Team Providers + +------+ + | Care Blanket Maker Name | Role | Phone | + +------+ + PCP | Unavailable | + +------+ + Encounter Details +--------+ + + + + | Date | Type | Department | Care Team | Description | +--------+ + + + + | 06/01/ | Hospital | [facility] | | | | 2005 | Encounter | MED CTR XRAY [address] | | | | | | [place] | | | | | | [place] [address] | | | | | | [phone] | | | +--------+ + + + [...] 2020 | Visit | | [address] | | | | | | [place] | | | | | | [address] | | | | | | | | +--------+---------+ + + + documented as of this encounter Visit Diagnoses Not on filedocumented in this encounter"
--- OUTSIDE RECORDS SUMMARY | ~2019-09-05 | XMS | Encounter Summary ---
Demographics + + + | Address | [address] | | | [place] [address] | + + + | Home Phone [...] + | Hector aMck | ECON | [address] | | | | | [place] | | | | | [address] | | + + + + + Care Team Providers + +------+ + | Care Concrete Bucket Unloader Name | Role | Phone | + +------+ + | Tuan Chan MD | PCP | | + +------+ + Encounter Details +--------+ + + + + | Date | Type | Department | Care Team | Description | +--------+ + + + + | 08/05/ | Results | Dermatology | Khoa Manuel, | | | 2008 | Only | Medical at [facility] | ,PhD Gloria | | | | | Hermila Kolb | Allergy Asthma | | | | | Mailcode: CH16D | Dermatology [address] | | | | | [facility] | [facility] | | | | | and Healing, | [place] [address] | | | | | [facility] | [phone] | | | | | Floor [place], [place] | | | | | | [address] | | | | | | [phone] | | | +--------+ + + + [...] | | Results for this | | [facility]) | e | | | procedure [...] | | | | | MNT) | [id number] | | | | | | DESCRIPTION:Punch [...] [facility] | Mailcode CH5D [address] | [place] [address] | | | DERMATOPATHOLOGY | [address] | | | + + + + + documented in this encounter Visit Diagnoses Not on filedocumented in this encounter"
--- OUTSIDE RECORDS SUMMARY | ~2019-09-05 | XMS | Encounter Summary ---
Demographics + + + | Address | [address] | | | [place] [address] | + + + | Home Phone [...] [place] | | | | | [address] | | + + + + + Care Team Providers + +------+ + | Care Compressor Station Operator Name | Role | Phone | [...] | | | | | | | [place], [place] | | | | | | | [address] | | | | | | | Phone: | | | | | | | [phone] | | | | | | | Fax: | | | | | | | [phone] | +--------+--------+ + + + + Encounter Details +--------+ + + + + | Date | Type | Department | Care Team | Description | +--------+ + + + + | 05/10/ | Hospital | [facility] [address] | Aysha Blackburn | | | 2008 - | Encounter | [address] Andre Crow MD | | | | | [address]/KPV11 Joey | | | | 05/11/ | | An [place], | | | | 2008 | | [place] [address] | | | +--------+ + + + [...] Author: LIZBET LASSITER MD Attending Physician: Aysha Blackbrun MD PCP: Tuan Chan MD Admission Date: [...] [facility] PAC[facility] On [facility], the patient was [...] clinic a ppointment Call: Plastic surgery resident information assurance manager at If you have any of the [...] Aysha Blackburn MD, 1 week, please call [phone] for appointment Follow Up Tests: (Tests at [facility] must be entered into Epic) None Condition [...] Discharged Via: Wheelchair Mode of Transportation: Other: [employer] Accompanied by: Staff Transport Company Name: (when applicable) [employer] Phone #: Discharge Nurse: PASQUALE MEYERS RN [...] week for drain removal Lizz Brittany MS4 [address] [place] [address] Kassandra Herman - 05/01 12:00 AM Emily-Germaine brownlee [id number] [facility] REC NUMBER: [id number] NAME : Germaine Heard DATE : 1945 Admit Date: 05/10/2008 Discharge Date: 05/11/2008 PHYSICIAN'S REQUEST FOR HOME HEALTH SERVICES Relevant History: Location to receive services if other than home: Allergies: Height: Weight: Ordering Physician: [address] [place] [address] Physician to follow for ongoing home health orders: PCP Name: PCP Phone: Discharge Need(s): 1. Transportation Discharge Vendor: Medicaid - [place] Discharge Suggested First Visit/Delivery Date: Discharge Service/Equipment: Media Relations Associate: Oralia Wang documented in this encounter Plan [...] + + + + | PRODUCT | [id number] | | [facility] | | | UNIT [...] + | [facility] | [address] | [place] [address] | | | PATHOLOGY | [address] | | | + + + + + | [facility] | [address] | [place] [address] | | | PATHOLOGY | [address] [...] + + + + | PRODUCT | [id number] | | [facility] | | | UNIT [...] | + + + + + | [facility] DEPARTMENT OF | [address] | [place] [address] | | | PATHOLOGY | [address] | | | + + + + + | [facility] DEPARTMENT OF | [address] | [place] [address] | | | PATHOLOGY | [address] | | | + + + + + OPERATION RECORD (05/10/2008 12:00 AM PST) + + + | Narrative | Performed At | + + + | [id number] | | | [id number] | | | [id number] ARETHA RAE [id number] | | | Date: 05/10/2008 Attending Surgeon: | | | Aysha Blackburn MD Lathe Puller(s): | | | Lang Pisano M.D. Preoperative [...] hemostasis was ensured. We then placed two 19-Andorran Ruel | | | drains in the [...] | | | MD LORIE Arce / [id number] / [id number] / [id number] / D: | | | 05/12/2008 | | + + + + + | Procedure Note | + + | Aysha Blackburn MD - 05/10/2008 12:00 AM [facility] [id number] | | [id number] ARETHA RAE | | [id number] Date: 05/10/2008 Attending Surgeon: | | Aysha Blackburn MD Lathe Puller(s): Lang Pisano M.D. | | Preoperative Diagnosis(es):Panniculitis. [...] ensured. We then | | placed two 19-Andorran Ruel drains in the subcutaneous plane. The [...] Crow | | MD LORIE Blackburn / [id number] / [id number] / [id number] / T: 05/12/2008 | | | | [...] w as ensured. We then placed two 19-Andorran Ruel drains in the subcutaneous plane. The [...] | | | |LORIE / PASCUAL | |[id number] / [id number] / [id number] / | | | | | | [...] + +---------+ +------+--------+---+ | morphine 5 mg/mL QUALITY CONTROL COORDINATOR infusion | New Bag | 05/10/19 | [...]
--- OUTSIDE RECORDS SUMMARY | ~2019-09-05 | XMS | Encounter Summary ---
Demographics + + + | Address | [address] | | | [place] [address] | + + + | Home Phone [...] [place] | | | | | [address] | | + + + + + Care Team Providers + +------+ + | Care Forklift Operator Name | Role | Phone | [...] Procedure Note | + + | Interface, Circuit Court Magistrate In - 02/05/2006 12:00 AM PST | | [id number] | | [id number] ANTONIETTAMACK GERMAINE [id number] | | | | Date: 02/05/2006 | | | | Attending Surgeon: Papi Johnson M.D. | | | | Cuff Setter(s): Darrel Dunn M.D. | | | | [...] | | DS / HS | | [id number] / [id number] / [id number] / [id number] | | | | | | | | | | | | Reviewed or Edited By Darrel Dunn MD on 05-29-2006 | | Electronically signed by Papi Johnson 05-29-2006 11:17:53 AM | | | | | + + + + | Transcriptions | + + | Interface, Circuit Court Magistrate In - 02/20/2006 2:34 AM PST | | [id number] | | [id number] ARETHA HERRON [id number] [id number] | | | | Date: 02/05/2006 | | | | Attending Surgeon: Herberth Ayala M.D. | | | | Cuff Setter(s): Darrel Dunn M.D. | | | | [...] | | | RWO / | | [id number] / [id number] / [id number] / [id number] | | | | | | | | | | | | Electronically signed by Herberth Brambila 02-19-2006 11:24:19 AM | + + documented in this encounter Visit Diagnoses Not on filedocumented in this encounter"
--- OUTSIDE RECORDS SUMMARY | ~2019-09-05 | XMS | Encounter Summary ---
Demographics + + + | Address | [address] | | | [place] [address] | + + + | Home Phone | | + + + | Preferred Language | Unknown | + + + | Marital Status | | + + + | Christianity Affiliation | 1077 | + + + | Race | Unknown | + + + | Ethnic Group | Unknown | + + + Author + + + | Author | [facility] | | | and [place] | + + + | Organization | [facility] [...] [place] | | | | | [address] | | + + + + + | Najma Xiong | ECON | Unknown | | + + + + + | Hector Mack | ECON | [address] | | | | | [place] | | | | | [address] | | + + + + + Care Team Providers + +------+ + | Care Plate Washer Name | Role | Phone | [...] | 2018 | | HOSPITAL DERMATOLOGY | FEED GRINDER [address] | results) | | | | CLINIC [address] | [place] | | | | | DR [place], | [place] [address] | | | | | [place] [address] | [phone] | | | | | [phone] | | | +--------+ + + + [...] [place] | | | | | | [address] | | | | | | | | +--------+---------+ + + + documented as of this encounter Visit Diagnoses Not on filedocumented in this encounter"
--- OUTSIDE RECORDS SUMMARY | ~2019-09-05 | XMS | Encounter Summary ---
Demographics + + + | Address | [address] | | | [place] [address] | + + + | Home Phone [...] | [facility] | | | and [place] | + + + | Organization | [facility] | | [...] [place] | | | | | [address] | | + + + + + | Najma Xiong | ECON | Unknown | | + + + + + | Hector Mack | ECON | [address] | | | | | [place] | | | | | [address] | | + + + + + Care Team Providers + +------+ + | Care Filler Shredder Machine Name | Role | Phone | + +------+ + PCP | Unavailable | + +------+ + Encounter Details +--------+ + + + + | Date | Type | Department | Care Team | Description | +--------+ + + + + | 06/01/ | Hospital | [facility] | | | | 2005 | Encounter | MED CTR XRAY [address] | | | | | | [place] | | | | | | [place] [address] | | | | | | [phone] | | | +--------+ + + + [...] [place] | | | | | | [address] | | | | | | | | +--------+---------+ + + + documented as of this encounter Visit Diagnoses Not on filedocumented in this encounter"
--- OUTSIDE RECORDS SUMMARY | ~2019-09-05 | XMS | Encounter Summary ---
Demographics + + + | Address | [address] | | | [place] [address] | + + + | Home Phone [...] + | Author | [facility] | | | and [place] | + + + | Organization | [facility] [place] [facility] | | | and [place] [...] [place] | | | | | [address] | | + + + + + | Najma Xiong | ECON | Unknown | | + + + + + | Hector Mack | ECON | [address] | | | | | [place] | | | | | [address] | | + + + + + Care Team Providers + +------+ + | Care Developer Evangelist Name | Role | Phone | + [...] | HOSPITAL XRAY [address] | [address] [facility] [facility] | | | | | SHELLY COBIAN | [facility], [place] | | | | | [facility], [place] | [address] | | | | | [address] | [phone] | | | | | [phone] | | | +--------+ + + + [...] [place] | | | | | | [address] | | | | | | | [...] multiple projections | | | show near jtqu-dr-nhlt articulation of the medial compartment. | | [...] Dexa scan evaluation is recommended. JOB #: [id number] | | | Digitally Released by: Wayne [...] | Films in multiple projections show near qrtr-em-pdsl articulation of the | | medial compartment. [...] | | | | | JOB #: [id number] | | Digitally Released by: Wayne Moraes | | | | | | Read By: WAYNE MORAES MD | | Date: 09/02/2016 16:10 | | | + + documented in this encounter Visit Diagnoses Not on filedocumented in this encounter"
--- OUTSIDE RECORDS SUMMARY | ~2019-09-05 | XMS | Encounter Summary ---
Demographics + + + | Address | [address] | | | [place] [address] | + + + | Home Phone [...] | Author | [facility] | | | and [place] | + + + | Organization | [facility] | | | and [place] [...] [place] | | | | | [address] | | + + + + + | Najma Xiong | ECON | Unknown | | + + + + + | Hector Mack | ECON | [address] | | | | | [place] | | | | | [address] | | + + + + + Care Team Providers + +------+ + | Care Travel Director Name | Role | Phone | [...] [place] | | | | | | [address] | | | | | | [phone] | | | +--------+ + + + [...] [place] | | | | | | [id number] | | | | | | | | +--------+---------+ + + + documented as of this encounter Visit Diagnoses Not on filedocumented in this encounter"
--- OUTSIDE RECORDS SUMMARY | ~2019-09-05 | XMS | Encounter Summary ---
Demographics + + + | Address | [address] | | | [place] [address] | + + + | Home Phone [...] [place] | | | | | [address] | | + + + + + Care Team Providers + +------+ + | Care Marketing Assistant Retail Division Name | Role | Phone | + +------+ + | Tuan Chan MD | PCP | | + +------+ + Encounter Details +--------+ + + + + | Date | Type | Department | Care Team | Description | +--------+ + + + + | 02/06/ | Respiratory | | Other, Faculty | | | 2005 | Therapy | | [phone] | | +--------+ + + + + [...] | | | | | Ap Butler, GUN PERFORATOR | | | | + + + [...] SPECIAL | [address] | [place], [place] | | | DIAGNOSTICS - | [address] | [address] | | | PULMONARY FUNCTION | | [...] AMY DOWNS | [address] | [place], [place] | | | DIAGNOSTICS - | [address] | [address] | | | PULMONARY FUNCTION | | [...] Noe | | | | | | AMAJRIT Alas | | | | + + [...] AMY DOWNS | [address] | [place], [place] | | | DIAGNOSTICS - | [address] | [address] | | | PULMONARY FUNCTION | | [...] SPECIAL | [address] | [place], [place] | | | DIAGNOSTICS - | [address] | [address] | | | PULMONARY FUNCTION | | [...] | | | | | Noe Alas, GUN PERFORATOR | | | | + + + [...] AMY SPECIAL | [address] | [place], [place] | | | DIAGNOSTICS - | [address] | [address] | | | PULMONARY FUNCTION | | [...] AMY DOWNS | [address] | [place], [place] | | | DIAGNOSTICS - | [address] | [address] | | | PULMONARY FUNCTION | | [...] AMY DOWNS | [address] | [place], [place] | | | DIAGNOSTICS - | [address] | [address] | | | PULMONARY FUNCTION | | [...] | | | | | Jeff Watts GUN PERFORATOR | | | | + + + [...] [facility] SPECIAL | [address] | [place], [place] | | | DIAGNOSTICS - | [address] | [address] | | | PULMONARY FUNCTION | | [...] | | | | | Mark Giraldo, GUN PERFORATOR | | | | + + + [...] [facility] SPECIAL | [address] | [place], [place] | | | DIAGNOSTICS - | [address] | [address] | | | PULMONARY FUNCTION | | [...] AMY DOWNS | [address] | [place], [place] | | | DIAGNOSTICS - | [address] | [address] | | | PULMONARY FUNCTION | | [...] [facility] SPECIAL | [address] | [place], [place] | | | DIAGNOSTICS - | [address] | [address] | | | PULMONARY FUNCTION | | [...] 10. | | | | | | HARBOR DEPARTMENT MANAGER IN USE: PATIENT SELF | | | [...] NONE | | | | | | [id number] HOURS . . | | | | [...] | | | | . Sirisha Vigil, [facility] | | | | + + [...] [facility] SPECIAL | [address] | [place], [place] | | | DIAGNOSTICS - | [address] | [address] | | | PULMONARY FUNCTION | | [...] AMY DOWNS | [address] | [place], [place] | | | DIAGNOSTICS - | [address] | [address] | | | PULMONARY FUNCTION | | | | + + + + + documented in this encounter Visit Diagnoses Not on filedocumented in this encounter"
--- OUTSIDE RECORDS SUMMARY | ~2019-09-05 | XMS | Encounter Summary ---
Demographics + + + | Address | [address] | | | [place] [address] | + + + | Home Phone [...] + | Organization | [facility] [...] [place] | | | | | [address] | | + + + + + | Najma Xiong | ECON | Unknown | | + + + + + | Hectro Mack | ECON | [address] | | | | | [place] | | | | | [address] | | + + + + + Care Team Providers + +------+ + | Care Chief Librarian Branch Or Department Name | Role | Phone | + +------+ + PCP | Unavailable | + +------+ + Encounter Details +--------+ + + + + | Date | Type | Department | Care Team | Description | +--------+ + + + + | 07/15/ | Hospital | [facility] | Rina Diaz MD | | | 2003 - | [facility] | [address] | | | | | INTENSIVE CARE UNIT | [place] [address] | | | 07/16/ | | [address] [facility] | [phone] | | | 2003 | | [place], [place] | | | | | | [address] | | | | | | [phone] | | | +--------+ + + + [...]
--- OUTSIDE RECORDS SUMMARY | ~2019-09-05 | XMS | Encounter Summary ---
Demographics + + + | Address | [address] | | | [place] [address] | + + + | Home Phone [...] [place] | | | | | [address] | | + + + + + Care Team Providers + +------+ + | Care Air Cargo Specialist Name | Role | Phone | [...] | Visit | Reconstructive | ,PhD [address] | | | | | Surgery at [facility] [address] | [address] [place], [place] | | | | | [address] | [address] | | | | | Mailcode: [facility] | [phone] | | | | | [facility] | | | | | | and Healing, | | | | | | Building 1, 5th | | | | | | Floor [facility] [place] | | | | | | [address] | | | | | | [phone] | | | +--------+---------+ + + + [...]
--- OUTSIDE RECORDS SUMMARY | ~2019-09-05 | XMS | Encounter Summary ---
Demographics + + + | Address | [address] | | | [place] [address] | + + + | Home Phone [...] [place] | | | | | [address] | | + + + + + Care Team Providers + +------+ + | Care Insurance Sales Executive Name | Role | Phone | [...] (Patients | | | | Surgery at [facility] [address] | | has some | | | | [address] | | concerns, pain | | | | Mailcode: [facility] | | issues) | | | | [facility] | | | | | | and Healing, | | | | | | Building 1, 5th | | | | | | Floor [place], [place] | | | | | | [address] | | | | | | [phone] | | | +--------+ + + + [...]
--- OUTSIDE RECORDS SUMMARY | ~2019-09-05 | XMS | Encounter Summary ---
Demographics + + + | Address | [address] | | | [place] [address] | + + + | Home Phone [...] | Organization | [facility] | [...] [place] | | | | | [address] | | + + + + + | Najma Xiong | ECON | Unknown | | + + + + + | Hector Mack | ECON | [address] | | | | | [place] | | | | | [address] | | + + + + + Care Team Providers + +------+ + | Care Certified Surgical Technician Name | Role | Phone | + +------+ + PCP | Unavailable | + +------+ + Encounter Details +--------+ + + + + | Date | Type | Department | Care Team | Description | +--------+ + + + + | 04/14/ | Hospital | [facility] | Trevor Keating | | | 2000 - | Encounter | [facility]ART MED CTR | Jesús Lee | | | | | CARDIAC TRANSPLANT | [address] | | | 04/21/ | | [address] | [place] | | | 2000 | | [place], [place] | [address] | | | | | [address] | [phone] | | | | | [phone] | | | | | | | Colton Soto, | | | | | | [address] | | | | | | [place], [place] | | | | | | [address] [...] | 11/25/ | Office | Neurology | Duaret Moon MD | | | 2019 | Visit | | [address] | | | | | | A [place] | | | | | | [id number] | | | | | | | | +--------+---------+ + + + documented as of this encounter Visit Diagnoses Not on filedocumented in this encounter"
--- OUTSIDE RECORDS SUMMARY | ~2019-09-05 | XMS | Encounter Summary ---
Demographics + + + | Address | [address] | | | [place] [address] | + + + | Home Phone [...] [place] | | | | | [address] | | + + + + + Care Team Providers + +------+ + | Care Graduate Internship Name | Role | Phone | [...] | | | obstructing | [facility] | [address] | | | | | calculus at | NIHARIKA | Ave | | | | | [facility] | [facility] | [place], [place] | | | | | MARYAN. | [address] | [address] | | | | | | [address] | | | | | | | [place] | | | | | | | [place] [address] | | | | | | | Phone: | | | | | | | [phone] | | | | | | | Fax: | | | | | | | [phone] | | +--------+--------+ + + + + [...] | | specified | | | | [facility] | | pre-operative | | | | and Healing, | | examination | | | | Building | | | | | | [place], [place] | | | | | | [address] | | | | | | [phone] | | | +--------+---------+ + + + [...] surgeries scheduled to take place on the [place] at the [facility]: Surgeries scheduled in the [facility] ([address] [place] [address]): registration is located on the 4th floor of [facility] (Day Surgery). Surgeries scheduled in the [facility]: registration is located on the 9th floor. Surgeries scheduled in [facility]: registration is located on the 6th floor. Surgeries scheduled in the [facility]: registration is located i n the [facility] lobby on the first floor. 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 She has been maintained of Plavx since then but stopped it over a week ago. She has no cardiac symptoms especially since w eight loss from 550 to 190 after gastric bypass in 2005. Pannus removed more recently by Dr. Gia Amin at [facility]. She suffers from chronic back pain for [...] 1 Years of Education: N/A Occupational History [employer] Social History Main Topics Smoking status: Former [...] [facility] | [facility] | | Outpatient Lab CH[address] [address] | DEPARTMENT OF | | | PATHOLOGY | + + + + + + + + | Performing | Address | City/State/Zipcode | Phone Number | | Organization | | | | + + + + + | [facility] DEPARTMENT | [address] | [place] [address] | | | PATHOLOGY | [address] [...] performed by: [facility] | [facility] | | Outpatient Lab [facility] [address] [place], [place] [address] | DEPARTMENT OF | | Sent to Core Lab. | PATHOLOGY | + + + + + + + + | Performing | Address | City/State/Zipcode | Phone Number | | Organization | | | | + + + + + | [facility] DEPARTMENT OF | [address] | [place] [address] | | | PATHOLOGY | [address] | | | + + + + + 12 LEAD ECG (03/11/2011 4:58 PM PST) + + + + + + | Component | Value | Ref Range | Performed | Pathologist | | | | | At | Signature | + + + + + + | VENTRICULAR | 62 | BPM | [facility] DEPT | | | RATE | | [...] view image for the detailed interpretation from [employer] results. | CARDIOLOGY | + + + + + + + + | Performing | Address | City/State/Zipcode | Phone Number | | Organization | | | | + + + + + | [facility] DEPT OF | [address] | [place], [place] | | | CARDIOLOGY | [address] | [address] | | + + + + + [...] | | | | | | R[facility] ([facility]) | | | | | | [place] | | | | | | Permanente | | | | | | [address] [address] [address] [facility] [address] | | | | | | [place], [place] | | | | | | [address] | | | | + + + + + + + + | Specimen | + + | Urine - Voided | + + + + + + + | Performing | Address | City/State/Zipcode | Phone Number | | Organization | | | | + + + + + | [facility] | [address] | [place] [address] | | | LAB-MICRO | | | [...] + + | MARLEEN CALL[facility]AY | [address] [facility] | [place] [address] | | | OF CARE TESTS | | | | + + + + + documented in this encounter Visit Diagnoses + + | Diagnosis | + + | Kidney stone - Primary Calculus of kidney | + + | Other specified pre-operative examination | + + documented in this encounter
--- OUTSIDE RECORDS SUMMARY | ~2019-09-05 | XMS | Encounter Summary ---
Demographics + + + | Address | [address] | | | [place] [address] | + + + | Home Phone [...] [facility] | | [...] [place] | | | | | [address] | | + + + + + | Najma Xiong | ECON | Unknown | | + + + + + | Hector Mack | ECON | [address] | | | | | [place] | | | | | [address] | | + + + + + Care Team Providers + +------+ + | Care Forestry Professor Name | Role | Phone | + +------+ + PCP | Unavailable | + +------+ + Encounter Details +--------+ + + + + | Date | Type | Department | Care Team | Description | +--------+ + + + + | 08/27/ | Hospital | [facility] | Duarte Moon MD | | | 2013 | Encounter | HOSPITAL RESPIRATORY | [address] | | | | | THERAPY [address] | [place] | | | | | [place] | [address] | | | | | [address] | | | | | | [phone] | | | +--------+ + + + [...]
--- OUTSIDE RECORDS SUMMARY | ~2019-09-05 | XMS | Encounter Summary ---
Demographics + + + | Address | [address] | | | [place] [address] | + + + | Home Phone | | + + + | Preferred Language | Unknown | + + + | Marital Status | | + + + | Uatsdin Affiliation | 1077 | + + + | Race | Unknown | + + + | Ethnic Group | Unknown | + + + Author + + + | Author | [facility] | | | and Byronana | + + + | Organization | [facility] [...] [place] | | | | | [address] | | + + + + + | Najma Xiong | ECON | Unknown | | + + + + + | Hector Mack | ECON | [address] | | | | | [place] | | | | | [address] | | + + + + + Care Team Providers + +------+ + | Care Finishing Room Operator Name | Role | Phone | + +------+ + PCP | Unavailable | + +------+ + Encounter Details +--------+ + + + + | Date | Type | Department | Care Team | Description | +--------+ + + + + | 05/18/ | Hospital | [facility] | | | | 2000 | Encounter | MED CTR EMERGENCY | | | | | | CENTER [address] | | | | | | [place] | | | | | | [address] | | | | | | [phone] | | | +--------+ + + + [...] [place] | | | | | | [id number] | | | | | | | | +--------+---------+ + + + documented as of this encounter Visit Diagnoses Not on filedocumented in this encounter"
--- OUTSIDE RECORDS SUMMARY | ~2019-09-05 | XMS | Encounter Summary ---
Demographics + + + | Address | [address] | | | [place] [address] | + + + | Home Phone [...] | [facility] | [...] [place] | | | | | [address] | | + + + + + | Najma Xiong | ECON | Unknown | | + + + + + | Hector Mack | ECON | [address] | | | | | [place] | | | | | [address] | | + + + + + Care Team Providers + +------+ + | Care Padding Gluer Name | Role | Phone | + +------+ + PCP | Unavailable | + +------+ + Encounter Details +--------+ + + + + | Date | Type | Department | Care Team | Description | +--------+ + + + + | 05/15/ | Hospital | [facility] | | | | 2000 - | Encounter | MED CTR GENERIC OP | | | | | | CONV DEPT [address] | | | | 06/20/ | | [place], | | | | 2000 | | [place] [address] | | | | | | [phone] | | | +--------+ + + + [...]
--- OUTSIDE RECORDS SUMMARY | ~2019-09-05 | XMS | Encounter Summary ---
Demographics + + + | Address | [address] | | | [place] [address] | + + + | Home Phone [...] [place] | | | | | [address] | | + + + + + Care Team Providers + +------+ + | Care Channel Lip Stiffener Insoles Name | Role | Phone | + [...] | | Loop Mailcode: | [address] [place], | | | | | [address] Physician's | [place] [address] | | | | | [address] | [phone] | | | | | [place], [place] | | | | | | [address] | | | | | | [phone] | | | +--------+ + + + [...]
--- OUTSIDE RECORDS SUMMARY | ~2019-09-05 | XMS | Encounter Summary ---
Demographics + + + | Address | [address] | | | [place] [address] | + + + | Home Phone [...] [place] | | | | | [address] | | + + + + + Care Team Providers + +------+ + | Care Fibre Cement Moulder Name | Role | Phone | + [...] | 2008 | Visit | Medical at [facility] [address] | [place] Fig[address] | (Primary Dx); | | | | [address] | [address] [place], | Encounter for | | | | Mailcode: CH16D | [place] [address] | Long-Term (Current) | | | | [facility] | [phone] | Use of Other | | | | and Healing, | | Medications | | | | | | | | | | Floor [facility] [place] | | | | | | [address] | | | | | | [phone] | | | +--------+---------+ + + + [...] --s/p CABG in 2000 in [facility] --s/p cholecystectomy 35 years ago [...] By [facility] and [facility] documented in this encounter Plan of Treatment Not on filedocumented as of this encounter Visit Diagnoses + + | Diagnosis | + + | 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
--- OUTSIDE RECORDS SUMMARY | ~2019-09-05 | XMS | Encounter Summary ---
Demographics + + + | Address | [address] | | | [place] [address] | + + + | Home Phone [...] [place] | | | | | [address] | | + + + + + Care Team Providers + +------+ + | Care Aircraft Cylinder Mechanic Name | Role | Phone | [...] as of this encounter Discharge Summaries Interface, Insight Leader In - 02/20/2006 2:34 AM [facility] [id number] ARETHA RAE [id number] Admission Date: 02/05/2006 Discharge Date: 02/09/2006 Staff [...] of discharge, she was seen by our spring encaser who assisted her with a voucher for a motel. She will stay in the local area for the next 2 days before returning home to [place]. The patient was seen by Nutrition and [...] Sana Timmons M.D. Chey Escobar M.D. / [id number] / [id number] / [id number] / [id number] E: 02/11/2006 cmw cc: Tuan Chan M.D. FAX: [phone] Reviewed or Edited By Sana Timmons on 02-19-2006 Electronically signed by Herberth Brambila 02-19-2006 11:24:08 AM documented i n this encounter Plan of Treatment Not on filedocumented as of this encounter Visit Diagnoses Not on filedocumented in this encounter"
--- OUTSIDE RECORDS SUMMARY | ~2019-09-05 | XMS | Encounter Summary ---
Demographics + + + | Address | [address] | | | [place] [address] | + + + | Home Phone | | + + + | Preferred Language | Unknown | + + + | Marital Status | | + + + | Confucianist Affiliation | 1077 | + + + | Race | Unknown | + + + | Ethnic Group | Unknown | + + + Author + + + | Author | [facility] | | | and [place] | + + + | Organization | [facility] | | | and [...] [place] | | | | | [address] | | + + + + + | Najma Xiong | ECON | Unknown | | + + + + + | Hector Mack | ECON | [address] | | | | | [place] | | | | | [address] | | + + + + + Care Team Providers + +------+ + | Care Insurance Coordinator Name | Role | Phone | + +------+ + PCP | Unavailable | + +------+ + Encounter Details +--------+ + + + + | Date | Type | Department | Care Team | Description | +--------+ + + + + | 04/23/ | Hospital | [facility] GENERIC OP | | [place] | | 2001 | Encounter | CONVERSION DEP [address] | [address] | | | | | | [place] | | | | | | [address] | | | | | | [phone] | | | +--------+ + + + [...] [place] | | | | | | [address] | | | | | | | | +--------+---------+ + + + documented as of this encounter Visit Diagnoses + + | Diagnosis | + + | Lumbago | + + documented in this encounter"
--- OUTSIDE RECORDS SUMMARY | ~2019-09-05 | XMS | Encounter Summary ---
Demographics + + + | Address | [address] | | | [place] [address] | + + + | Home Phone [...] [place] | | | | | [address] | | + + + + + Care Team Providers + +------+ + | Care Hand Riveter Name | Role | Phone | + [...] 06/02/ | Office | Preoperative | 1, [facility] [address] | Other Specified | | 2007 | Visit | Medicine Clinic at | [address] | Pre-Operative | | | | [facility] 4th Floor [address] | [place] [address] | Examination (Primary | | | | [address] | | Dx) | | | | Mailcode: CH4S | | | | | | [facility] | | | | | | and Healing, | | | | | | Building 1,4th Floor | | | | | | [place], [place] | | | | | | [address] | | | | | | [phone] | | | +--------+---------+ + + + [...] [facility] DEPARTMENT OF | [address] | [place] [address] | | | PATHOLOGY | [address] | | | + + + + + | [facility] DEPARTMENT OF | [address] | [place] [address] | | | PATHOLOGY | [address] [...] Performed At | + + + | [id number] Estimated GFR = 48 mL/min/1.73 sq m if non- | [facility] | | [id number] Estimated GFR = 59 mL/min/1.73 sq m [...] | + + + + + | [facility] | [address] | [place] [address] | | | PATHOLOGY | [address] | | | + + + + + | [facility] DEPARTMENT | [address] | [place] [address] | | | PATHOLOGY | [address] [...] + + + | Please click | [facility] | | on view image for the detailed interpretation from [employer] results. | CARDIOLOGY | | | | + + + + + + + + | Performing | Address | City/State/Zipcode | Phone Number | | Organization | | | | + + + + + | [facility] DEPT OF | [address] | [place], [place] | | | CARDIOLOGY | [address] | [address] | | + + + + + | [facility] DEPT OF | [address] | [place], [place] | | | CARDIOLOGY | [address] | [address] | | + + + + + documented in this encounter Visit Diagnoses + + | Diagnosis | + + | Other specified pre-operative examination - Primary | + + documented in this encounter
--- OUTSIDE RECORDS SUMMARY | ~2019-09-05 | XMS | Encounter Summary ---
Demographics + + + | Address | [address] | | | [place] [address] | + + + | Home Phone [...] [place] | | | | | [address] | | + + + + + Care Team Providers + +------+ + | Care Fabric Pattern Grader Name | Role | Phone | [...] | | | | | Surgery at [facility] [address] | | | | | | Hermila Kolb | | | | | | Mailcode: [facility] | | | | | | [facility] | | | | | | and Healing, | | | | | | Building 1, 5th | | | | | | Floor [place], [place] | | | | | | [address] | | | | | | [phone] | | | +--------+---------+ + + + [...]
--- OUTSIDE RECORDS SUMMARY | ~2019-09-05 | XMS | Clinical Summary ---
Demographics + + + | Address | [address] | | | [place] [address] | + + + | Home Phone [...] Organization | [facility] | | | and [...] [place] | | | | | [address] | | + + + + + | Najma Xiong | ECON | Unknown | | + + + + + | Hector Mack | ECON | [address] | | | | | [place] | | | | | [address] | | + + + + + Care Team Providers + +------+ + | Care Emergency Dispatcher Name | Role | Phone | [...] | 0 | 05/3 | 05/2 | Expir | | mcg/puff inhaler | the lungs every 4 | | | 0/20 | 9/20 | ed | | | (four) hours as | [...] | 0 | 05/3 | 05/2 | Expir | | (TUMS) 500 mg | mouth daily. | | | 0/20 | 9/20 | ed | | chewable tablet | | | | 19 | 20 | | + + + +---------+------+------+-------+ | furosemide (LASIX) | Take 1 tablet by | | 0 | 05/3 | 05/2 | Expir | | 20 mg tablet | mouth every other | | | 0/20 | 9/20 | ed | | | day as needed | | | 19 | 20 | | | | (Bilateral lower | | | | | | | | extremity edema). | | | | | | + + + +---------+------+------+-------+ | levETIRAcetam | Take 1 tablet by | | 0 | 05/3 | 05/2 | Expir | | (KEPPRA) 750 MG | mouth 2 (two) times | | | 0/20 | 9/20 | ed | | tablet | daily. | | | 19 | 20 | | + + + +---------+------+------+-------+ | senna (SENNA) 8.6 | Take 1 tablet by | | 0 | 05/3 | 05/2 | Expir | | mg tablet | mouth daily as | | | 0/20 | 9/20 | ed | | | needed for | | | 19 | 20 | | | | Constipation. | | | | | | + + + +---------+------+------+-------+ Active Problems + + + | Problem | Noted Date | + + + | Elevated troponin | 07/26/2019 | + + + | Alcohol abuse, in remission | 11/02/2018 | + + + + + | Overview: Overview: | | sober 1989 | + + + + + [...] | 04/27/2014 | + + + | [place] (my[place] infarction) | 09/05/2012 | + + [...] + + | 07/25/ | Hospital | | Mirna Dumont MD | Elevated troponin; | | 2019 - | Encounter | | | Acute on chronic | | | | | | diastolic congestive | | 07/27/ | | | | heart failure | | 2019 | | | | (HCC); Paroxysmal | | | | | | atrial fibrillation | | | | | | (HCC) | +--------+ + + + + | 07/25/ | Intake | | | N/A | | 2019 | | | | | +--------+ + [...] + | Blood Pressure | 119/56 | 07/28/2019 11:19 AM | | | | | PDT | | + + + + + | Pulse | 60 | 07/28/2019 11:19 AM | | | | | PDT | | + + + + + | Temperature | 36.6 C (97.9 F) | 07/28/2019 11:19 AM | | | | | PDT | | + + + + + | Respiratory Rate | 16 | 07/28/2019 11:19 AM | | | | | PDT | | + + + + + | Oxygen Saturation | 96% | 07/28/2019 11:19 AM | | | | | PDT | | + + + + + | Inhaled Oxygen | - | - | | | Concentration | | | | + + + + + | Weight | 66 kg (145 lb 8.1 | 07/26/2019 3:35 PM | | | | oz) | PDT | | + + + + + | Height | 162.6 cm (5' 4") | 07/26/2019 2:40 PM | | | | | PDT | | + + + + + | Body Mass Index | 24.98 | 07/26/2019 2:40 PM | | | | | PDT | | + + + + + Plan of Treatment +--------+---------+ + + + | Date | Type | Specialty | Care Team | Description | +--------+---------+ + + + | 11/25/ | Office | Neurology | Duarte Moon MD | | | 2020 | Visit | | [address] | | | | | | [place] | | | | | | [address] | | | | | | | | +--------+---------+ + + + + + + + + | Health [...] | | + + + + + Procedures + +--------+ + + + | Procedure Name | Priori | Date/Time | Associated Diagnosis | Comments | | | ty | | | | + +--------+ + + + | CBC NO DIFFERENTIAL | Routin | 07/28/2019 | | Results for this | | | e | 6:27 AM | | procedure are in the | | | | PDT | | results section. | + +--------+ + + + | MAGNESIUM | Routin | 07/28/2019 | | Results for this | | | e | 6:27 AM | | procedure are in the | | | | PDT | | results section. | + +--------+ + + + | BASIC METABOLIC | Routin | 07/28/2019 | | Results for this | | PANEL | e | 6:27 AM | | procedure are in the | | | | PDT | | results section. | + +--------+ + + + | NM NUCLEAR STRESS | Routin | 07/27/2019 | | Results for this | | TEST (PHARMACOLOGIC | e | 10:30 AM | | procedure are in the | | - VASODILATOR) | | PDT | | results section. | + +--------+ + + + | CBC NO DIFFERENTIAL | Routin | 07/27/2019 | | Results for this | | | e | 2:41 AM | | procedure are in the | | | | PDT | | results section. | + +--------+ + + + | MAGNESIUM | Routin | 07/27/2019 | | Results for this | | | e | 2:41 AM | | procedure are in the | | | | PDT | | results section. | + +--------+ + + + | BASIC METABOLIC | Routin | 07/27/2019 | | Results for this | | PANEL | e | 2:41 AM | | procedure are in the | | | | PDT | | results section. | + +--------+ + + + | TROPONIN I | Routin | 07/27/2019 | | Results for this | | | e | 2:41 AM | | procedure are in the | | | | PDT | | results section. | + +--------+ + + + | PROCALCITONIN, SERUM | Add-On | 07/26/2019 | | Results for this | | | | 8:21 PM | | procedure are in the | | | | PDT | | results section. | + +--------+ + + + | TROPONIN I | Routin | 07/26/2019 | | Results for this | | | e | 8:21 PM | | procedure are in the | | | | PDT | | results section. | + +--------+ + + + | XR CHEST AP PORTABLE | Routin | 07/26/2019 | | Results for this | | | e | 5:53 PM | | procedure are in the | | | | PDT | | results section. | + +--------+ + + + | XR KNEE RIGHT 3 VW | Routin | 07/26/2019 | | Results for this | | | e | 5:53 PM | | procedure are in the | | | | PDT | | results section. | + +--------+ + + + | MAGNESIUM | Routin | 07/26/2019 | | Results for this | | | e | 2:50 PM | | procedure are in the | | | | PDT | | results section. | + +--------+ + + + | BASIC METABOLIC | Routin | 07/26/2019 | | Results for this | | PANEL | e | 2:50 PM | | procedure are in the | | | | PDT | | results section. | + +--------+ + + + | B TYPE NATRIURETIC | Routin | 07/26/2019 | | Results for this | | PEPTIDE | e | 2:50 PM | | procedure are in the | | | | PDT | | results section. | + +--------+ + + + | TROPONIN I | Routin | 07/26/2019 | | Results for this | | | e | 2:50 PM | | procedure are in the | | | | PDT | | results section. | + +--------+ + + + | ECG 12 LEAD | Routin | 07/26/2019 | | Results for this | | | e | 2:45 PM | | procedure are in the | | | | PDT | | results section. | + +--------+ + + + | ECG - EXTERNAL SCAN | | 07/26/2019 | | Results for this | | | | 12:00 AM | | procedure are in the | | | | PDT | | results section. | + +--------+ + + + | IMAGING REPORT - | | 07/26/2019 | | Results for this | | EXTERNAL SCAN | | 12:00 AM | | procedure are in the | | | | PDT | | results section. | + +--------+ + + + from Last 3 Months Results CBC no Differential (07/28/2019 6:27 AM PDT)Only the most recent of 2 results within the period is included. + +-------+ + + + | Component | Value | Ref Range | Performed | Pathologist | | | | | At | Signature | + +-------+ + + + | WBC | 6.9 | 4.0 - 11.0 K/uL | [facility] | | | | | | [facility] | | | | | | [facility] | | | | | [facility] - | | | | | | LABORATORY | | + +-------+ + + + | RBC | 4.02 | 3.70 - 5.20 | [facility] | | | | | M/uL | [facility] | | | | | | [facility] | | | | | | C[facility] - | | | | | | LABORATORY | | + +-------+ + + + | Hemoglobin | 12.7 | 11.5 - 16.0 | [facility] | | | | | g/dL | [facility] | | | | | | [facility] | | | | | | CENTER - | | | | | | LABORATORY | | + +-------+ + + + | Hematocrit | 37.4 | 34.0 - 47.0 % | [facility] | | | | | | [facility] | | | | | | [facility] | | | | | | [facility] - | | | | | | LABORATORY | | + +-------+ + + + | MCV | 93.0 | 83.0 - 101.0 fL | [facility] | | | | | | [facility] | | [facility] | | [facility] | | | | | | [facility] - | | | | | | LABORATORY | | + +-------+ + + + | MCH | 31.6 | 28.0 - 35.0 pg | [facility] | | | | | | [facility] | | | | | | [facility] | | | | | | [facility] - | | | | | | LABORATORY | | + +-------+ + + + | MCHC | 34.0 | 32.0 - 36.0 | [facility] | | | | | g/dL | [facility] | | | | | | [facility] | | | | | | CENTER - | | | | | | LABORATORY | | + +-------+ + + + | RDW-CV | 13.2 | <15.0 % | [facility] | | | | | | [facility] | | | | | | [facility] | | | | | | C[facility] - | | | | | | LABORATORY | | + +-------+ + + + | RDW-SD | 45.3 | 35.1 - 46.3 fL | [facility] | | | | | | [facility] | | | | | | [facility] | | | | | | CENTER - | | | | | | LABORATORY | | + +-------+ + + + | Platelet | 190 | 140 - 440 K/uL | [facility] | | | Count | | | [facility] | | | | | | [facility] | | | | | | CENTER - | | | | | | LABORATORY | | + +-------+ + + + | MPV | 10.5 | 6.5 - 12.4 fL | [facility] | | | | | | [facility] | | | | | | [facility] | | | | | | [facility] - | | | | | | LABORATORY | | + +-------+ + + + | % nRBC | 0 | 0 - 2 per 100 | [facility] | | | | | WBCs | [facility] | | | | | | [facility] | | | | | | C[facility] - | | | | | | LABORATORY | | + +-------+ + + + | Absolute | 0.00 | 0.00 - 0.01 | [facility] | | | nRBC | | K/uL | [facility] | | | | [...] [address] | [place] | [phone] | | [facility] | | [address] | | | - LABORATORY | | | | + + + + + Magnesium (07/28/2019 6:27 AM PDT)Only the most recent of 3 results within the time period is included. + +-------+ + + + | Component | Value | Ref Range | Performed | Pathologist | | | | | At | Signature | + +-------+ + + + | Magnesium | 2.1 | 1.6 - 2.6 mg/dL | [facility] | | | | [...] + | [facility] | [address] | [place] | [phone] | | [facility] | | [address] | | | - LABORATORY | | | | + + + + + Basic Metabolic Panel (07/28/2019 6:27 AM PDT)Only the most recent of 3 results within the time period is included. + + + + + + | Component | Value | Ref Range | Performed | Pathologist | | | | | At | Signature | + + + + + + | Na | 139 | 136 - 145 | [facility] | | | | | mmol/L | [facility] | | | | | | MEDICAL | | | | | | CENTER - | | | | | | LABORATORY | | + + + + + + | K | 3.5 | 3.4 - 5.1 | [facility] | | | | | mmol/L | [facility] | | | | | | MEDICAL | | | | | | CENTER - | | | | | | LABORATORY | | + + + + + + | Cl | 102 | 98 - 107 mmol/L | [facility] | | | | | | [facility] | | | | | | [facility]ICAL | | | | | | CENTER - | | | | | | LABORATORY | | + + + + + + | CO2 | 32 (H) | 20 - 31 mmol/L | [facility] | | [...] + + + + | Glucose | 96 | 60 - 106 mg/dL | [facility] | | | | | | [facility] | | | | | | MEDICAL | | | | | | CENTER - | | | | | | LABORATORY | | + + + + + + | BUN | 16 | 9 - 23 mg/dL | [facility] | | | | | | [facility] | | | | | | [facility]ICAL | | | | | | CENTER - | | | | | | LABORATORY | | + + + + + + | Creatinine | 0.82 | 0.55 - 1.02 | [facility] | | | | | [...] mL/min/1.73m2 | [facility] | | | NIGERIEN | RATE,ESTIMATED | | MEDICAL | | | | mL/min/1.92t7Ifqq than | | CENTER - | | [...] + | Calcium | 8.2 (L) | 8.7 - 10.4 | [facility] | | | | | mg/dL | [facility] | | | | | | MEDICAL | | | | | | CENTER - | | | | | | LABORATORY | | + + + + + + | BUN/Creatin | 19.5 | | [facility] | | | ine Ratio | | | [facility] | | [...] ST. | [address] | [place], [place] | [phone] | | [facility] | | [address] | | | - LABORATORY | | | | + + + + + NM Nuclear Stress Test (Vasodilator) (07/27/2019 10:30 AM PDT) + +--------+ + + + | Component | Value | Ref Range | Performed | Pathologist | | | | | At | Signature | + +--------+ + + + | BASELINE | 54 | bpm | [facility] | | | HEART RATE | | | | | + +--------+ + + + | BASELINE | 128/73 | mmHg | [facility] | | | BLOOD | | | | | | PRESSURE | | | | | + +--------+ + + + | PEAK HEART | 74 | | [facility] | | | RATE | | | | | + +--------+ + + + | PEAK BLOOD | 128/73 | mmHG | [facility] | | | PRESSURE | | | | | + +--------+ + + + | Target HR | 124 | | [facility] | | + +--------+ + + + | Percent HR | 51 | | [facility] | | + +--------+ + + + | Max | 146 | | [facility] | | | Predicted | | | | | | HR | | | | | + +--------+ + + + | LVEF-SPECT | 75 | % | [facility] | | | NUCLEAR | | | | | | STRESS/VIAB | | | | | | ILITY | | | | | + +--------+ + + + | ST | 0.0 | mm | [facility] | | | Elevation | | | | | | (mm) | | | | | + +--------+ + + + + + | Specimen | + + | | + + + + + | Narrative | Performed At | + + + | 1. | [facility] | | Pharmacologic stress without diagnostic ECG changes or symptoms.2. | | | Normal LV size and systolic function with LVEF 75% post stress via | | | SPECT imaging.3. Perfusion imaging notable for moderate sized | | | moderate intensity basal to mid inferior perfusion defect without | | | significant reversibility.4. 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 This study does | | | not reveal significant reversible uptake/evidence of inducible | | | ischemia. | | + + + + +---------+ + + | Performing | Address | City/State/Zipcode | Phone Number | | Organization | | | | + +---------+ + + | [facility] | | | | + +---------+ + + Troponin I (07/27/2019 2:41 AM PDT)Only the most recent of 3 results within the time perio d is included. + + + + + + | Component | Value | Ref Range | Performed | Pathologist | | | | | At | Signature | + + + + + + | Troponin I | 0.19 (H)Comment: | <0.06 ng/mL | [facility] | | | | Comment:Reference | | [facility] | | | | Ranges: 0.00-0.06 = | | MEDICAL | | | | NORMAL >0.06 = | | CENTER - | | | | SUSPICIOUS FOR | | LABORATORY | | | | MYOCARDIAL DAMAGE NOTE: | | | | | | Values greater than | | | | | | 0.78 ng/mL have been | | | | | | shown to be strongly | | | | | | associated with acute | | | | | | myocardial infarction. | | | | | | [employer] | | | | | [...] ST. | [address] | [place] | [phone] | | [facility] | | [address] | | | - LABORATORY | | | | + + + + + Procalcitonin (07/26/2019 8:21 PM PDT) + + + + + + | Component | Value | Ref Range | Performed | Pathologist | | | | | At | Signature | + + + + + + | Procalciton | <0.05 | <=0.50 ng/mL | [facility] | | | in | | | [facility] | | | | | | MEDICAL | | | | | | CENTER - | | | | | | LABORATORY | | + + + + + + | Comment | Comment: < 0.50 | | [facility] | | | | ng/mL:Procalcitonin | | [facility] | | | | levels below 0.50 ng/mL | | MEDICAL | | | | on the first day of | | CENTER - | | | | admission represents a | | LABORATORY | | | | low risk for progression | | | | | | to severe sepsis and/or | | | | | | septic shock, however | | | | | | these do not exclude an | | | | | | infection, because | | | | | | localized infections | | | | | | (without systemic signs) | | | | | | may also be associated | | | | | | with such low levels. | | | | | | > 2.00 | | | | | | ng/mL:Procalcitonin | | | | | | levels above 2.00 ng/mL | | | | | | on the first day of | | | | | | admission represents a | | | | | | high risk for | | | | | | progression to severe | | | | | | sepsis and/or septic | | | | | | shock. If the | | | | | | procalcitonin | | | | | | measurement is performed | | | | | | shortly after the | | | | | | systemic infection | | | | | | process has started | | | | | | (usually less than 6 | | | | | | hours), these values may | | | | | | still be low. As | | | | | | various non-infectious | | | | | | conditions are known to | | | | | | induce procalcitonin as | | | | | | well, procalcitonin | | | | | | levels between 0.50 | | | | | | ng/mL and 2.00 ng/mL | | | | | | should be reviewed | | | | | | carefully to take into | | | | | | account the specific | | | | | | clinical background and | | | | | | condition(s) of the | | | | | | individual patient. | | | | + + + + + + + + | Specimen | + + | Blood | + + + + + + + | Performing | Address | City/State/Zipcode | Phone Number | | Organization | | | | + + + + + | [facility] | [address] | [place] | [phone] | | [facility] | | [address] | | | - LABORATORY | | | | + + + + + XR Chest AP Portable (07/26/2019 5:53 PM PDT) + + | Specimen | + + | | + + + + + | Impressions | Performed At | + + + | Cardiomegaly with mild pulmonary edema. An atypical infectious | [facility] | | processes also a consideration. Dictated and Signed by: Jace | | | MD Nikita Electronically signed: 07/26/2019 6:42 PM | | + + + + + + | Narrative | Performed At | + + + | CLINICAL INFORMATION: left crackles. COMPARISON: None | [facility] | | available. FINDINGS: Portable frontal chest radiograph | | | Lungs: Mild diffuse prominence of the interstitial lung markings and | | | central pulmonary nodule which are. No pleural effusion or | | | pneumothorax. No focal airspace consolidation. Mild low lung volumes. | | | Heart/mediastinum: Mild cardiomegaly. Tortuous course of the | | | aorta with prominent vascular calcifications. Median sternotomy and | | | CABG changes. Bones: No acute osseous abnormality appreciated. | | | Moderate sigmoid curvature of the thoracolumbar spine. Bony | | | demineralization. | | + + + + + | Procedure Note | + + | Victor Hugo, Rad Results In - 07/26/2019 6:45 PM PDT | | CLINICAL INFORMATION: left crackles. | | | | COMPARISON: None available. | | | | FINDINGS: | | Portable frontal chest radiograph | | | | Lungs: Mild diffuse prominence of the interstitial lung markings and central | | pulmonary nodule which are. No pleural effusion or pneumothorax. No focal | | airspace consolidation. Mild low lung volumes. | | | | Heart/mediastinum: Mild cardiomegaly. Tortuous course of the aorta with | | prominent vascular calcifications. Median sternotomy and CABG changes. | | | | Bones: No acute osseous abnormality appreciated. Moderate sigmoid curvature of | | the thoracolumbar spine. Bony demineralization. | | | | IMPRESSION: | | | | Cardiomegaly with mild pulmonary edema. An atypical infectious processes also a | | consideration. | | | | Dictated and Signed by: Jace Shelton MD | | Electronically signed: 07/26/2019 6:42 PM | + + + +---------+ + + | Performing | Address | City/State/Zipcode | Phone Number | | Organization | | | | + +---------+ + + | [facility] | | | | + +---------+ + + XR Knee Right 3 Vw (07/26/2019 5:53 PM PDT) + + | Specimen | + + | | + + + + + | Impressions | Performed At | + + + | Bony demineralization without acute osseous abnormality. 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 | | | Dictated and Signed by: Jace Shelton MD Electronically signed: | | | 07/26/2019 6:43 PM | | + + + + + + | Narrative | Performed At | + + + | CLINICAL INFORMATION: right leg limping. COMPARISON: None | [facility] | | available. FINDINGS: 3 views of the right knee. Bones: Bony | | | demineralization. No fracture or dislocation. No periostitis. | | | Joints: No significant joint effusion. Severe patellofemoral, moderate | | | medial, and mild lateral compartment joint space narrowing. | | | Tricompartment osteophyte formation. Soft tissue: Prominent | | | vascular calcifications are evident. No acute soft tissue abnormality | | | appreciated. | | + + + + + | Procedure Note | + + | Victor Hugo, Rad Results In - 07/26/2019 6:47 PM PDT CLINICAL INFORMATION: right leg | | limping.COMPARISON: None available.FINDINGS: 3 views of the right knee. Bones: Bony | | demineralization. No fracture or dislocation. No periostitis.Joints: No significant | | joint effusion. Severe patellofemoral, moderate medial,and mild lateral compartment | | joint space narrowing. Tricompartment osteophyteformation.Soft tissue: Prominent | | vascular calcifications are evident. 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 Severe patellofemoral, moderate medial, | |and mild lateral compartment joint space narrowing. Tricompartment osteophyte | |formation. | | | |Soft tissue: Prominent vascular calcifications are evident. No acute soft tissue | |abnormality appreciated. | | | |IMPRESSION: | | | |Bony demineralization without acute osseous abnormality. 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 | | | |Dictated and Signed by: Jace Shelton MD | | Electronically signed: 07/26/2019 6:43 PM | + + + +---------+ + + | Performing | Address | City/State/Zipcode | Phone Number | | Organization | | | | + +---------+ + + | [facility] | | | | + +---------+ + + B Type Natriuretic Peptide (07/26/2019 2:50 PM PDT) + + + + + + | Component | Value | Ref Range | Performed | Pathologist | | | | | At | Signature | + + + + + + | BNP | 803 (H)Comment: New | <100 pg/mL | [facility] | | | | method in use as of | | [facility] | | | | May 27, 2018. Check | | MEDICAL | | | | reference range for | | CENTER - | | | | changes.Some analytes | | LABORATORY | | | | show significant | | | | | | variation from the | | | | | | previous method.It may | | | | | | be necessary to set a | | | | | | new baseline for this | | | | | | analyte. | | | | + + + + + + + + | Specimen | + + | Blood | + + + + + + + | Performing | Address | City/State/Zipcode | Phone Number | | Organization | | | | + + + + + | [facility] | [address] | [place] | [phone] | | [facility] | | [address] | | | - LABORATORY | | | | + + + + + ECG 12 lead (07/26/2019 2:45 PM PDT) + + + + + [...] | P-R | 132 | ms | [facility] | | | INTERVAL | | | | | + + + + + + | QRS | 92 | ms | [facility] | | | DURATION | | | | | + + + + + + | Q-T | 570 | ms | [facility] | | | INTERVAL | | | | | + + + + + + | Q-T | 559 | ms | [facility] | | | INTERVAL | | | | | | (CORRECTED) | | | | | + + + + + + | P WAVE AXIS | 47 | degrees | [facility] | | + + + + + + | QRS AXIS | -4 | degrees | [facility] | | + + + + + + | T AXIS | 68 | degrees | [facility] | | + + + + + + | INTERPRETAT | Sinus bradycardiaLong | | [facility] | | | ION TEXT | QTcT wave abnormality, | | | | | | consider anterolateral | | | | | | ischemiaProminent U | | | | | | waves which may be | | | | | | secondary to | | | | | | bradycardia, medication | | | | | | or electrolyte | | | | | | effectAbnormal ECGWhen | | | | | | compared with ECG of | | | | | | 11-JUN-2015 21:45,T wave | | | | | | abnormality now evident | | | | | | in Anterior leadsT wave | | | | | | inversion in leads V4-6 | | | | | | has replaced T wave | | | | | | flatteningQTc has | | | | | | lengthenedConsider | | | | | | ischemia/ACS or | | | | | | evolution of ischemic | | | | | | eventConfirmed by | | | | | | ANDREW WARE, ERWIN ([id number]) | | | | | | on 07/27/2019 6:03:40 AM | | | | + + [...] | | | + +---------+ + + IMAGING REPORT - EXTERNAL SCAN (07/26/2019 12:00 AM PDT) + + + | Narrative | Performed At | + + + | Ordered by an | | | unspecified provider. | | + + + ECG - EXTERNAL SCAN (07/26/2019 12:00 AM PDT) + + + | Narrative | Performed At | + + + | Ordered by an | | | unspecified provider. | | + + + from Last 3 Months Insurance + +--------+ +--------+ +---------+--------+ | Payer | Benefi | Subscriber | Effect | Phone | Address | Type | | | t Plan | ID | irish | | | | | | / | | Dates | | | | | | Group | | | | | | + +--------+ +--------+ +---------+--------+ | MEDICARE | [employer] | [id number] | 05/29/18 | [phone] | | Medica | | | RE | | 94-Pre | 5 | | re | | | PART A | | sent | | | | | | AND B | | | | | | + +--------+ +--------+ +---------+--------+ | MEDICARE | [employer] | [id number] | 05/29/18 | [phone] | | Medica | | | RE | | 94-Pre | 5 | | re | | | PART A | | sent | | | | | | AND B | | | | | | + +--------+ +--------+ +---------+--------+ | MEDICARE | [employer] | [id number] | 05/29/18 | [phone] | | Medica | | | RE | | 94-Pre | 5 | | re | | | PART A | | sent | | | | | | AND B | | | | | | + +--------+ +--------+ +---------+--------+ | [employer] | MODA | [id number] | 03/31/19 | [phone] | | Medica | | MEDICAID HMO | HEALTH | | 19-Pre | 1 | | id | | | MDCD | | sent | | | | | | HMO [place] | | | | | | + +--------+ +--------+ +---------+--------+ | [employer] | MODA | [id number] | 03/31/19 | [phone] | | Medica | | MEDICAID HMO | HEALTH | | 19-Pre | 1 | | id | | | MDCD | | sent | | | | | | HMO [place] | | | | | | + +--------+ +--------+ +---------+--------+ | MEDICAID [place] | MEDICA | [id number] | | [phone] | | Medica | [...] Germaine Ugalde | Person | Self | [birth year] | [address] | | D | al/Fam | | 1946 | [phone] | [place] [address] | | | demetrius | | | 7 (Home) | | + +--------+ +--------+ + + | Germaine Ugalde | Person | Self | [birth year] | [address] | | D | al/Fam | | 1946 | [phone] | [place] [address] | | | demetrius | | | 8 (Home) | | + +--------+ +--------+ + + | Germaine Ugalde | Person | Self | [birth year] | [address] | | D | al/Fam | | 1946 | [phone] | [place] [address] | | | demetrius | | | 8 (Home) | | + +--------+ +--------+ + + | Germaine Ugalde | Person | Self | [birth year] | [address] | | D | al/Fam | | 1946 | [phone] | [place] [address] | | | demetrius | | | 8 (Home) | | + +--------+ +--------+ + + Advance Directives + + + + + | Type | Date Recorded | Patient | Explanation | | | | Financial Foundations Representative | | + + + + + | Power of | | | | | Hand Flatwork Finisher | | | | + + + + + | Advance | 07/27/2019 10:50 | | LUCIANA @ [facility] | | Directive | AM | | | + + + + + + + + + + | Code Status | Date | Date | Comments | | | Activated | Inactivated | | + + + + + | DNR (No | 07/27/2019 | 07/28/2019 | | | Code) | 4:39 PM | 4:21 PM | | + + + + + + + +---+ | RN or MD to pronounce: | RN may | | | | pronounce | | + + +---+ + + + +---+ | | | | | + + + +---+ | Full Code | 07/27/2019 | 07/27/2019 | | | | 11:00 AM | 4:39 PM | | + + + +---+ + + + +---+ | | | | | + + + +---+ | Full Code | 05/18/2018 | 05/22/2018 | | | | 7:11 PM | 2:44 PM | | + + + +---+
--- OUTSIDE RECORDS SUMMARY | ~2019-09-05 | XMS | Encounter Summary ---
Demographics + + + | Address | [address] | | | [place] [address] | + + + | Home Phone [...] + | Organization | [facility] [...] [place] | | | | | [address] | | + + + + + | Najma Xiong | ECON | Unknown | | + + + + + | Hector Mack | ECON | [address] | | | | | [place] | | | | | [address] | | + + + + + Care Team Providers + +------+ + | Care Ornamental Metal Worker Apprentice Name | Role | Phone | + +------+ + PCP | Unavailable | + +------+ + Encounter Details +--------+ + + + + | Date | Type | Department | Care Team | Description | +--------+ + + + + | 05/17/ | Hospital | [facility] | | | | 1993 | Encounter | MED CTR EMERGENCY | | | | | | CENTER [address] | | | | | | [place] | | | | | | [address] | | | | | | [phone] | | | +--------+ + + + [...] [place] | | | | | | [id number] | | | | | | | | +--------+---------+ + + + documented as of this encounter Visit Diagnoses Not on filedocumented in this encounter"
--- OUTSIDE RECORDS SUMMARY | ~2019-09-05 | XMS | Encounter Summary ---
Demographics + + + | Address | [address] | | | [place] [address] | + + + | Home Phone [...] [place] | | | | | [address] | | + + + + + Care Team Providers + +------+ + | Care Screw Machine Hand Name | Role | Phone | [...] | | | | | | [place] [address] | | | +--------+ + + + [...] | + + | 02/06/2006 11:10 AM [facility] Anesthesia PostOp Report | | | | Patient: GERMAINE CARIAS [facility] Rec: [id number] Sex F Bdate: 1945 | | Date/Time Data | | Entered Into [facility] | | Anesth PostOp | | Surgery Date [id number] 02/06/06 11:10 | | Anesthesiologist OLEG ASCENCIO 02/06/06 11:10 | | Resident Anesthesiolog JULIEN FRYE 02/06/06 11:10 | | | + + documented in this encounter Visit Diagnoses Not on filedocumented in this encounter"
--- OUTSIDE RECORDS SUMMARY | ~2019-09-05 | XMS | Encounter Summary ---
Demographics + + + | Address | [address] | | | [place] [address] | + + + | Home Phone [...] + | Organization | [facility] | [...] [place] | | | | | [address] | | + + + + + | Najma Xiong | ECON | Unknown | | + + + + + | Hector Mack | ECON | [address] | | | | | [place] | | | | | [address] | | + + + + + Care Team Providers + +------+ + | Care Bottom Saw Operator Name | Role | Phone | + +------+ + PCP | Unavailable | + +------+ + Encounter Details +--------+ + + + + | Date | Type | Department | Care Team | Description | +--------+ + + + + | 07/10/ | Hospital | [facility] | | | | 1996 | Encounter | MED CTR EMERGENCY | | | | | | CENTER [address] | | | | | | [place] | | | | | | [address] | | | | | | [phone] | | | +--------+ + + + [...] [place] | | | | | | [id number] | | | | | | | | +--------+---------+ + + + documented as of this encounter Visit Diagnoses Not on filedocumented in this encounter"
--- OUTSIDE RECORDS SUMMARY | ~2019-09-05 | XMS | Encounter Summary ---
Demographics + + + | Address | [address] | | | [place] [address] | + + + | Home Phone [...] | Organization | [facility] | [...] [place] | | | | | [address] | | + + + + + | Najma Xiong | ECON | Unknown | | + + + + + | Hector Mack | ECON | [address] | | | | | [place] | | | | | [address] | | + + + + + Care Team Providers + +------+ + | Care Wholesaler Name | Role | Phone | + [...] | | | 1994 | | [place] [address] | | | | | | [phone] | | | +--------+ + + + [...] [place] | | | | | | [id number] | | | | | | | | +--------+---------+ + + + documented as of this encounter Visit Diagnoses Not on filedocumented in this encounter"
--- OUTSIDE RECORDS SUMMARY | ~2019-09-05 | XMS | Encounter Summary ---
Demographics + + + | Address | [address] | | | [place] [address] | + + + | Home Phone [...] Author | [facility] | | | and [place] | + + + | Organization | [facility] [...] [place] | | | | | [address] | | + + + + + | Najma Xiong | ECON | Unknown | | + + + + + | Hector Mack | ECON | [address] | | | | | [place] | | | | | [address] | | + + + + + Care Team Providers + +------+ + | Care Marketing Planning Manager Name | Role | Phone | [...] | 2018 | | HOSPITAL DERMATOLOGY | TRUCK GU[address] | results) | | | | CLINIC [address] | [place] | | | | | DR [place], | [place] [address] | | | | | [place] [address] | [phone] | | | | | [phone] | | | +--------+ + + + [...] [place] | | | | | | [address] | | | | | | | | +--------+---------+ + + + documented as of this encounter Visit Diagnoses Not on filedocumented in this encounter"
--- OUTSIDE RECORDS SUMMARY | ~2019-09-05 | XMS | Encounter Summary ---
Demographics + + + | Address | [address] | | | [place] [address] | + + + | Home Phone [...] [place] | | | | | [address] | | + + + + + Care Team Providers + +------+ + | Care Edge Bonder Name | Role | Phone | + [...] | | | Eugenio Mailcode: [id number] | [place], [place] | | | | | [place], [place] | [address] | | | | | [address] | [phone] | | | | | [phone] | | | +--------+ + + + [...]
--- OUTSIDE RECORDS SUMMARY | ~2019-09-05 | XMS | Encounter Summary ---
Demographics + + + | Address | [address] | | | [place] [address] | + + + | Home Phone [...] [place] | | | | | [address] | | + + + + + Care Team Providers + +------+ + | Care Icer Hand Name | Role | Phone | [...] as of this encounter Progress Notes Interface, Supervisor Sewing Room In - 11/28/2005 2:08 AM PDT [id number] ARETHA RAE [id number] Clinic Date: 11/22/2005 Clinic: [facility] [...] conference presentation. Herberth Ayala M.D. Chelsie / [id number] / [id number] / [id number] / [id number] Electronically signed by Herberth Brambila 11-27-2005 02:01:34 PM documented i n this encounter Plan of Treatment Not on filedocumented as of this encounter Visit Diagnoses Not on filedocumented in this encounter"
--- OUTSIDE RECORDS SUMMARY | ~2019-09-05 | XMS | Encounter Summary ---
Demographics + + + | Address | [address] | | | [place] [address] | + + + | Home Phone | | + + + | Preferred Language | Unknown | + + + | Marital Status | | + + + | Adventist Affiliation | 1077 | + + + | Race | Unknown | + + + | Ethnic Group | Unknown | + + + Author + + + | Author | [facility] | | | and [place] | + + + | Organization | [facility] | | | and [place] | + [...] [place] | | | | | [address] | | + + + + + | Najma Xiong | ECON | Unknown | | + + + + + | Hector Mack | ECON | [address] | | | | | [place] | | | | | [address] | | + + + + + Care Team Providers + +------+ + | Care Ships Equipment Engineer Name | Role | Phone | + +------+ + PCP | Unavailable | + +------+ + Encounter Details +--------+ + + + + | Date | Type | Department | Care Team | Description | +--------+ + + + + | 04/23/ | Hospital | [facility] | | [place] | | 2001 | Encounter | CONVERSION DEP [address] | | [address] | | | | | | [place] | | | | | | [address] | | | | | | [phone] | | | +--------+ + + + [...] [place] | | | | | | [address] | | | | | | | | +--------+---------+ + + + documented as of this encounter Visit Diagnoses + + | Diagnosis | + + | Lumbago | + + documented in this encounter"
--- OUTSIDE RECORDS SUMMARY | ~2019-09-05 | XMS | Encounter Summary ---
Demographics + + + | Address | [address] | | | [place] [address] | + + + | Home Phone [...] [place] | | | | | [address] | | + + + + + Care Team Providers + +------+ + | Care Process Tech Name | Role | Phone | [...] (Patients | | | | Surgery at [facility] [address] | | has some | | | | [address] | | concerns, pain | | | | Mailcode: [facility] | | issues) | | | | [facility] | | | | | | and Healing, | | | | | | Building 1, 5th | | | | | | Floor [place], [place] | | | | | | [address] | | | | | | [phone] | | | +--------+ + + + [...]
--- OUTSIDE RECORDS SUMMARY | ~2019-09-05 | XMS | Encounter Summary ---
Demographics + + + | Address | [address] | | | [place] [address] | + + + | Home Phone [...] [place] | | | | | [address] | | + + + + + Care Team Providers + +------+ + | Care Carton Lettering Machine Operator Name | Role | Phone [...] | n | Eugenio Mailcode: [id number] | [place], [place] | | | | | [place], [place] | [address] | | | | | [address] | [phone] | | | | | [phone] | | | +--------+ + + + [...]
--- OUTSIDE RECORDS SUMMARY | ~2019-09-05 | XMS | Encounter Summary ---
Demographics + + + | Address | [address] [place] [address] | | | [place] [address] | + + + | Home Phone | | + + + | Preferred Language | Unknown | + + + | Marital Status | | + + + | Voodoo Affiliation | PRO | + + + [...] [place] | | | | | [address] | | + + + + + Care Team Providers + +------+ + | Care Metal Burrer Name | Role | Phone | + [...] [id number] | | | | | | [facility] | | | | | | and Healing, | | | | | | Building 1, 10th | | | | | | Floor [place], [place] | | | | | | [address] | | | | | | [phone] | | | +--------+ + + + [...]
--- OUTSIDE RECORDS SUMMARY | ~2019-09-05 | XMS | Encounter Summary ---
Demographics + + + | Address | [address] | | | [place] [address] | + + + | Home Phone [...] Organization | [facility] | [...] [place] | | | | | [address] | | + + + + + | Najma Xiong | ECON | Unknown | | + + + + + | Hector Mack | ECON | [address] | | | | | [place] | | | | | [address] | | + + + + + Care Team Providers + +------+ + | Care General Office Clerk Name | Role | Phone | + +------+ + PCP | Unavailable | + +------+ + Encounter Details +--------+ + + + + | Date | Type | Department | Care Team | Description | +--------+ + + + + | 04/27/ | Hospital | [facility] | Trevor Hunter | | | 2000 - | Encounter | [facility] CTR | A Jesus Bartholomew | | | | | CARDIAC TELEMETRY | [address] | | | 05/15/ | | [address] | [address] | | | 2000 | | [place] | [id number] | | | | | [address] | | | | | | [phone] | | | +--------+ + + + [...] DR | | | | | | [place] | | | | | | [address] | | | | | | | | +--------+---------+ + + + documented as of this encounter Visit Diagnoses Not on filedocumented in this encounter"
--- OUTSIDE RECORDS SUMMARY | ~2019-09-05 | XMS | Encounter Summary ---
Demographics + + + | Address | [address] | | | [place] [address] | + + + | Home Phone [...] [place] | | | | | [address] | | + + + + + Care Team Providers + +------+ + | Care Weight Training Instructor Name | Role | Phone | [...] Dx); | | | | Surgery at [facility] [address] | | Intertrigo; CAD | | | | [address] | | (Coronary Artery | | | | Mailcode: [facility] | | Disease); DM Circ | | | | [facility] | | Dis Type II, | | | | and Healing, | | Uncontrolled ([facility]) | | | | Building 1 | | | | | | Floor [place], [place] | | | | | | [address] | | | | | | [phone] | | | +--------+---------+ + + + [...] surgeries scheduled to take place on the hermon at the [facility]: Surgeries scheduled in the [facility] ( [facility]): registration is located on the 4th floor of [facility] (Day Surgery). Surgeries scheduled in the [facility]: registration is located on the 9th floor. Surgeries scheduled in [facility]: registration is located on the 6th floor. Surgeries scheduled in the [facility]: registration is located i n the [facility] on the first floor. For surgeries scheduled to take place at the [facility]: registration is l [...] Accession | | | | | | #:[id number] CC | | | | | | [...] | | | | | | at [facility] and | | | | | | Science | | | | | | [place].ASSESSMENT: | | | | | | Negative [...] + + | [facility] | [address] [place] [address] | [place] [address] | | | PATHOLOGY | [address] | | | + + + + + | [facility] | [address] [place] [address] RAMA DEACON | [place] [address] | | | PATHOLOGY | [address] [...] + | [facility] | [address] | [place] [address] | | | PATHOLOGY | [address] | | | + + + + + | [facility] | [address] | [place] [address] | | | PATHOLOGY | [address] [...] + | [facility] | [address] | [place] [address] | | | PATHOLOGY | [address] | | | + + + + + | [facility] | [address] | [place] [address] | | | PATHOLOGY | [address] [...] Performed At | + + + | [id number] Estimated GFR > 60 mL/min/1.73 sq m if non- | [facility] | | [place] [id number] Estimated GFR > 60 mL/min/1.73 sq m if | DEPARTMENT OF | | [place] GFR is estimated using the MDRD equation [...] + + | Performing | Address | City/[facility]/Zipcode | Phone Number | | Organization | | | | + + + + + | [facility] | [address] [place] [address] | [place] [address] | | | PATHOLOGY | [address] | | | + + + + + | [facility] | [address] | [place] [address] | | | PATHOLOGY | [address] [...] + + | [facility] DEPARTMENT OF | [address] | [place] [address] | | | PATHOLOGY | [address] | | | + + + + + | [facility] | [address] | [place] [address] | | | PATHOLOGY | [address] | | | + + + + + documented in this encounter Visit Diagnoses + + | Diagnosis | + + | Panniculitis - Primary Panniculitis, unspecified site | + + | Intertrigo Other specified erythematous condition | + + | CAD (coronary artery disease) Coronary atherosclerosis of unspecified type of vessel, | | tribe or graft | + + | Type II or unspecified type diabetes mellitus with peripheral circulatory disorders, | | uncontrolled(250.72) Type II or unspecified type diabetes mellitus with peripheral | | circulatory disorders, uncontrolled | + + documented in this encounter
--- OUTSIDE RECORDS SUMMARY | ~2019-09-05 | XMS | Encounter Summary ---
Demographics + + + | Address | [address] | | | [place] [address] | + + + | Home Phone [...] + | Organization | [facility] | | | and [place] [...] [place] | | | | | [address] | | + + + + + | Najma Xiong | ECON | Unknown | | + + + + + | Hector Mack | ECON | [address] | | | | | [place] | | | | | [address] | | + + + + + Care Team Providers + +------+ + | Care Insurance Claims Examiner Name | Role | Phone | + +------+ + PCP | Unavailable | + +------+ + Encounter Details +--------+ + + + + | Date | Type | Department | Care Team | Description | +--------+ + + + + | 12/11/ | Hospital | [facility] | | | | 1997 - | Encounter | MED CTR GENERIC OP | | | | | | CONV DEPT [address] | | | | 01/24/ | | [place], | | | | 1997 | | [place] [address] | | | | | | [phone] | | | +--------+ + + + [...]
--- OUTSIDE RECORDS SUMMARY | ~2019-09-05 | XMS | Encounter Summary ---
Demographics + + + | Address | [address] | | | [place] [address] | + + + | Home Phone [...] + + | Organization | [facility] | | | and [...] [place] | | | | | [address] | | + + + + + | Najma Xiong | ECON | Unknown | | + + + + + | Hector Mack | ECON | [address] | | | | | [place] | | | | | [address] | | + + + + + Care Team Providers + +------+ + | Care Assembler Latches And Springs Name | Role | Phone | + +------+ + PCP | Unavailable | + +------+ + Encounter Details +--------+ + + + + | Date | Type | Department | Care Team | Description | +--------+ + + + + | 08/23/ | Hospital | [facility] | | | | 1991 | Encounter | MED CTR LABORATORY | | | | | | [address] | | | | | | [place] | | | | | | [address] | | | | | | [phone] | | | +--------+ + + + [...] [place] | | | | | | [id number] | | | | | | | | +--------+---------+ + + + documented as of this encounter Visit Diagnoses Not on filedocumented in this encounter"
--- OUTSIDE RECORDS SUMMARY | ~2019-09-05 | XMS | Encounter Summary ---
Demographics + + + | Address | [address] | | | [place] [address] | + + + | Home Phone [...] [place] | | | | | [address] | | + + + + + Care Team Providers + +------+ + | Care Russian History Professor Name | Role | Phone | [...] 09/07/ | Office | Preoperative | 1, [facility] Freight Unloader [address] | CAD (Coronary Artery | | 2008 | Visit | Medicine Clinic at | [address] | Disease); Gout; DM | | | | [facility] 4th Floor [address] | [place] [address] | Circ Dis Type II, | | | | [address] | | Uncontrolled (HCC); | | | | Mailcode: CH4S | | Obesity; Achalasia; | | | | [facility] | | Panniculitis; | | | | and Healing, | | Bruise; Other | | | | Building 1,4th Floor | | Specified | | | | [place], [place] | | Pre-Operative | | | | [address] | | Examination | | | | [phone] | | | +--------+---------+ + + + [...] | + + +--------+ + + | MD COLLECTION VENOUS | Procedures | Routin | [...] | | | | | | ([facility]) Obesity | | | | | | [...] + + + | [facility] | [address] | [place] [address] | | | PATHOLOGY | [address] | | | + + + + + | [facility] | [address] | [place] [address] | | | PATHOLOGY | [address] [...] + + + | [facility] | [address] | [place] [address] | | | PATHOLOGY | [address] | | | + + + + + | [facility] | [address] | [place] [address] | | | PATHOLOGY | [address] | | | + + + + + INR (09/07/2008 3:43 PM PDT) + + + + + + | Component | Value | Ref Range | Performed | Pathologist | | | | | At | Signature | + + + + + + | INR | 1.01Comment: | 0.90 - 1.20 INR | [facility] | | | | INR Therapeutic [...] + + + + + | [facility] DEPARTMENT OF | [address] | [place] [address] | | | PATHOLOGY | [address] | | | + + + + + | [facility] DEPARTMENT OF | [address] | [place] [address] | | | PATHOLOGY | [address] [...] (H) | 60 - 99 mg/dL | [facility] | | | PLASMA | | [...] Performed At | + + + | 555842 Estimated GFR > 60 mL/min/1.73 sq m if non- | [facility] | | [place] 324355 Estimated GFR > 60 mL/min/1.73 sq m if | DEPARTMENT | | [place] GFR is estimated using the MDRD equation [...] + + + | [facility] | [address] | [place] [address] | | | PATHOLOGY | [address] | | | + + + + + | [facility] | [address] | [place] [address] | | | PATHOLOGY | [address] [...] | | | | | SHAKIRA GARCIA (8176) | | | | | | on [...] view image for the detailed interpretation from [facility] results. | CARDIOLOGY | | | | + + + + + + + + | Performing | Address | City/State/Zipcode | Phone Number | | Organization | | | | + + + + + | [facility] DEPT OF | [address] | [place], [place] | | | CARDIOLOGY | [address] | [address] | | + + + + + | [facility] | [address] | [place], [place] | | | CARDIOLOGY | [address] | [address] | | + + + + + documented in this encounter Visit Diagnoses + + | Diagnosis | + + | CAD (coronary artery disease) Coronary atherosclerosis of unspecified type of vessel, | | ouzinkie or graft | + + | Gout [...]
--- OUTSIDE RECORDS SUMMARY | ~2019-09-05 | XMS | Encounter Summary ---
Demographics + + + | Address | [address] | | | [place] [address] | + + + | Home Phone [...] | Organization | [facility] | [...] [place] | | | | | [address] | | + + + + + | Najma Xiong | ECON | Unknown | | + + + + + | Hector Mack | ECON | [address] | | | | | [place] | | | | | [address] | | + + + + + Care Team Providers + +------+ + | Care Newspaper Press Operator Apprentice Name | Role | Phone | [...] 2017 | | HOSPITAL EMERGENCY | C, JAIL GUARD [address] | demonstrated | | | | CENTER [address] | [place] | (Primary Dx) | | | | [place] | [address] | | | | | [address] | | | | | | [phone] | | | +--------+ + + + [...] [place] | | | | | | [address] | | | | | | | [...] D?MRN: | | | | | | [id number] | | | [id number] | | | ecurit | | | [...] | | | St. | | | [place] | | | y | | | [...] | | | St. | | | [place] | | | y H. | | [...] | | | St. | | | [place] | | | y H. | | [...] | | | St. | | | [place] | | | y H. | | [...] | | | St. | | | [place] | | | y H. | | [...] | | | St. | | | [place] | | | y | | | [...] + + | [facility] | [address] | [place] | [phone] | | HOSPITAL LABORATORY | | [address] | | + + + + + [...] - 1.030 | [facility] | | | [place], | | | [facility] | | | [...] + + | [facility] | [address] | [place] | [phone] | | HOSPITAL LABORATORY | | [address] | | + + + + + [...] + + | [facility] | [address] | [place] | [phone] | | HOSPITAL LABORATORY | | [address] | | + + + + + [...] | mL/min/1.73m2 | [facility] | | | [facility] | RATE,ESTIMATED | | HOSPITAL | | | | mL/min/1.35f8Rpbn than | | LABORATORY | | | [...] + + | [facility] | [address] | [place] | [phone] | | HOSPITAL LABORATORY | | [address] | | + + + + + [...] | 0.03 | 0.00 - 0.70 | [facility] | | | Eosinophils | | K/uL [...] + + | [facility] | [address] | [place] | [phone] | | HOSPITAL LABORATORY | | [address] | | + + + + + documented in this encounter Visit Diagnoses + + | Diagnosis | + + | Feared condition not demonstrated - Primary Person with feared complaint in whom no | | diagnosis was made | + + documented in this encounter
--- OUTSIDE RECORDS SUMMARY | ~2019-09-05 | XMS | Encounter Summary ---
Demographics + + + | Address | [address] | | | [place] [address] | + + + | Home Phone [...] | Author | [facility] | | | and [place] | + + + | Organization | [facility] | | | and [place] [...] [place] | | | | | [address] | | + + + + + | Najma Xiong | ECON | Unknown | | + + + + + | Hector Mack | ECON | [address] | | | | | [place] | | | | | [address] | | + + + + + Care Team Providers + +------+ + | Care Multimedia Project Manager Name | Role | Phone | + +------+ + PCP | Unavailable | + +------+ + Encounter Details +--------+ + + + + | Date | Type | Department | Care Team | Description | +--------+ + + + + | 08/01/ | Hospital | [facility] | Rina Diaz MD | CHEST PAIN NEC | | 2003 - | Encounter [facility] | [address] | | | | | INTENSIVE CARE UNIT | [place] [address] | | | 08/02/ | | [address] | [phone] | | | 2003 | | [place], [place] | | | | | | [address] | | | | | | [phone] | | | +--------+ + + + [...]
--- OUTSIDE RECORDS SUMMARY | ~2019-09-05 | XMS | Encounter Summary ---
Demographics + + + | Address | [address] | | | [place] [address] | + + + | Home Phone [...] [place] | | | | | [address] | | + + + + + Care Team Providers + +------+ + | Care Buildings And Grounds Supervisor Name | Role | Phone | [...] | | | | | | [address] [place], [place] | | | | | | [address] | | | | | | [phone] | | | +--------+---------+ + + + [...] of surgical weight loss procedure. [facility]06 Last 1 Wt Readings: [...] has been cleared for surgery by her inspector set up and lay out, Dr. Melendez. She states she has completed dietary consultation and psychological evaluation in [facility]. Those records have been requested. Current Problem [...] REFLUX DISEASE) SLEEP APNEA Past Surgical History: [place] CABG, VEIN, FOUR HX APPENDECTOMY HX CHOLECYSTECTOMY [...]
--- OUTSIDE RECORDS SUMMARY | ~2019-09-05 | XMS | Encounter Summary ---
Demographics + + + | Address | [address] | | | [place] [address] | + + + | Home Phone | | + + + | Preferred Language | Unknown | + + + | Marital Status | | + + + | Restorationism Affiliation | 1077 | + + + | Race | Unknown | + + + | Ethnic Group | Unknown | + + + Author + + + | Author | [facility] | | | and [place] | + + + | Organization | [facility] | | [...] [place] | | | | | [address] | | + + + + + | Najma Xiong | ECON | Unknown | | + + + + + | Hector Mack | ECON | [address] | | | | | [place] | | | | | [address] | | + + + + + Care Team Providers + +------+ + | Care Milled Rice Broker Name | Role | Phone | [...] | | | 1994 | | [place] [address] | | | | | | [phone] | | | +--------+ + + + [...] [place] | | | | | | [id number] | | | | | | | | +--------+---------+ + + + documented as of this encounter Visit Diagnoses Not on filedocumented in this encounter"
--- OUTSIDE RECORDS SUMMARY | ~2019-09-05 | XMS | Encounter Summary ---
Demographics + + + | Address | [address] | | | [place] [address] | + + + | Home Phone [...] | Author | [facility] | | | and [place] | + + + | Organization | [facility] | [...] [place] | | | | | [address] | | + + + + + | Najma Xiong | ECON | Unknown | | + + + + + | Hector Mack | ECON | [address] | | | | | [place] | | | | | [address] | | + + + + + Care Team Providers + +------+ + | Care Apartment Locator Name | Role | Phone | + +------+ + PCP | Unavailable | + +------+ + Encounter Details +--------+ + + + + | Date | Type | Department | Care Team | Description | +--------+ + + + + | 07/18/ | Hospital | [facility] | | | | 1996 - | Encounter | MED CTR MED ONC | | | | | | [address] | | | | 07/23/ | | [place] [address] | | | | 1996 | | [phone] | | | +--------+ + + + [...] [place] | | | | | | [id number] | | | | | | | | +--------+---------+ + + + documented as of this encounter Visit Diagnoses Not on filedocumented in this encounter"
--- OUTSIDE RECORDS SUMMARY | ~2019-09-05 | XMS | Encounter Summary ---
Demographics + + + | Address | [address] | | | [place] [address] | + + + | Home Phone [...] [place] | | | | | [address] | | + + + + + Care Team Providers + +------+ + | Care Websphere Portal Architect Name | Role | Phone | [...] [id number] | | | | | | [facility] | | | | | | and Healing, | | | | | | Building [address]th | | | | | | Floor [place], [place] | | | | | | [address] | | | | | | [phone] | | | +--------+ + + + [...]
--- OUTSIDE RECORDS SUMMARY | ~2019-09-05 | XMS | Encounter Summary ---
Demographics + + + | Address | [address] | | | [place] [address] | + + + | Home Phone [...] | Author | [facility] | | | and [place] | + + + | Organization | [facility] | | | and [place] | + + + | Address | Unknown | + + + | Phone | Unavailable | + + + Support + + + + + | Name | Relationship | Address | Phone | + + + + + | Hector Mcak | ECON | [address] | | | | | [place] | | | | | [address] | | + + + + + | Najma Xiong | ECON | Unknown | | + + + + + | Hector Mack | ECON | [address] | | | | | [place] | | | | | [address] | | + + + + + Care Team Providers + +------+ + | Care Refinery Operator Visbreaking Name | Role | Phone | + +------+ + PCP | Unavailable | + +------+ + Encounter Details +--------+ + + + + | Date | Type | Department | Care Team | Description | +--------+ + + + + | 04/24/ | Hospital | [facility] | Conversion | Pain | | 2013 | Encounter | CONVERSION [address] | Transaction, | | | | | [address] | Provider Unknown | | | | | [place], [place] | | | | | | [address] | (Fax) | | | | | [phone] | | | +--------+ + + + [...] [place] | | | | | | [address] | | | | | | | [...]
--- OUTSIDE RECORDS SUMMARY | ~2019-09-05 | XMS | Encounter Summary ---
Demographics + + + | Address | [address] | | | [place] [address] | + + + | Home Phone [...] [place] | | | | | [address] | | + + + + + Care Team Providers + +------+ + | Care Scrap Collector Name | Role | Phone | + [...] | | | | | | [place] [address] | | | +--------+--------+ + + + [...]
--- OUTSIDE RECORDS SUMMARY | ~2019-09-05 | XMS | Encounter Summary ---
Demographics + + + | Address | [address] | | | [place] [address] | + + + | Home Phone [...] | Organization | [facility] | | [...] [place] | | | | | [address] | | + + + + + | Najma Xiong | ECON | Unknown | | + + + + + | Hector Mack | ECON | [address] | | | | | [place] | | | | | [address] | | + + + + + Care Team Providers + +------+ + | Care Ciaio Lumite Injector Name | Role | Phone | + +------+ + PCP | Unavailable | + +------+ + Encounter Details +--------+ + + + + | Date | Type | Department | Care Team | Description | +--------+ + + + + | 07/25/ | Hospital | [facility] | Tuan Chan, | LUMBOSACRAL NEURITIS | | 2005 | Encounter | CON[address] | MD [address] | [address] | | | | [address] | [place], [place] | | | | | [place], [place] | [address] | | | | | [address] | [phone] | | | | | [phone] | | | +--------+ + + + [...] [place] | | | | | | [address] | | | | | | | | +--------+---------+ + + + documented as of this encounter Visit Diagnoses + + | Diagnosis | + + | Thoracic or lumbosacral neuritis or radiculitis, unspecified | + + documented in this encounter"
--- OUTSIDE RECORDS SUMMARY | ~2019-09-05 | XMS | Encounter Summary ---
Demographics + + + | Address | [address] | | | [place] [address] | + + + | Home Phone [...] [place] | | | | | [address] | | + + + + + Care Team Providers + +------+ + | Care Satellite Dish Repairer Name | Role | Phone | [...] | | | | | Procedures | [address] | [place] | | | | | CONSULT TO | [facility] | [facility] | | | | | [place] | [place], [place] | CHILDREN | | | | | | [address] | [address] | | | | | | Phone: | DEACON BYRNE | | | | | | [phone] | [place], | | | | | | Fax: | [place] [address] | | | | | | [phone] | Phone: | | | | | | | [phone] | | | | | | | Fax: | | | | | | | [phone] | +--------+--------+ + + + + Reason [...] | MD [address] | Dx) | | | | Surgery at [facility] [address] | [place], [place] | | | | | [address] | [address] | | | | | Mailcode: [facility] | [phone] | | | | | [facility] | | | | | | and Healing, | | | | | | Building 1, | | | | | | Floor [place], [place] | | | | | | [address] | | | | | | [phone] | | | +--------+---------+ + + + [...] with Dr. Vasquez. She has seen a clinical lab assistant without any change in her rash. She [...] known rash that was seen by a clinical lab assistant, per patient. There was no specific treatab [...]
--- OUTSIDE RECORDS SUMMARY | ~2019-09-05 | XMS | Encounter Summary ---
Demographics + + + | Address | [address] | | | [place] [address] | + + + | Home Phone [...] [place] | | | | | [address] | | + + + + + Care Team Providers + +------+ + | Care Life Coach Name | Role | Phone | [...] [place] | | | | | | [address] | | | +--------+ + + + [...]
--- OUTSIDE RECORDS SUMMARY | ~2019-09-05 | XMS | Encounter Summary ---
Demographics + + + | Address | [address] | | | [place] [address] | + + + | Home Phone [...] [place] | | | | | [address] | | + + + + + Care Team Providers + +------+ + | Care Shank Sander Name | Role | Phone | [...] Pranay | | | | | | [address] | [address] | | | | | | [place] | [address] | | | | | | Rd | [place], [place] | | | | | | [place], [place] | [address] | | | | | | [address] | | | | | | | Phone: | | | | | | | [phone] | | | | | | | Fax: | | | | | | | [phone] | | +--------+--------+ + + + + [...] (Coronary Artery | | | | Mailcode: [id number] | | Disease); Sleep | | | | [facility] | | Apnea; Gout; DM Circ | | | | Juan Daniel [address] [place] [address], | | Dis Type II, | | | | [place] [address] | | Uncontrolled ([facility]); | | | | [phone] | | Dyslipidemia | +--------+---------+ + + [...] Notes Pranay Melendez - 11[facility]21/2005 9:02 [facility] is a morbidly obese [...] risk will be manageable. Furthermore, in the manager intermediate weigh t loss will afford cardiovascualr prtection. [...] DEPARTMENT OF | [address] | [place] [address] | | | PATHOLOGY | [address] | | | + + + + + | [facility] | [address] | [place] [address] | | | PATHOLOGY | [address] | | | + + + + + documented in this encounter Visit Diagnoses + + | Diagnosis | + + | Dysmetabolic syndrome X Dysmetabolic Syndrome X | + + | CAD (coronary artery disease) Coronary atherosclerosis of unspecified type of vessel, | | [place] or graft | + + | Sleep [...]
--- OUTSIDE RECORDS SUMMARY | ~2019-09-05 | XMS | Encounter Summary ---
Demographics + + + | Address | [address] | | | [place] [address] | + + + | Home Phone [...] [place] | | | | | [address] | | + + + + + Care Team Providers + +------+ + | Care Head Charger Name | Role | Phone | [...] as of this encounter Progress Notes Interface, Spar Machine Operator In - 11/28/2005 2:08 AM PDT [id number] ARETHA RAE [id number] Clinic Date: 11/22/2005 Clinic: [facility] [...] conference presentation. Herberth Ayala M.D. Chelsie / [id number] / [id number] / [id number] / [id number] Electronically signed by Herberth Brambila 11-27-2005 02:01:34 PM documented i n this encounter Plan of Treatment Not on filedocumented as of this encounter Visit Diagnoses Not on filedocumented in this encounter"
--- OUTSIDE RECORDS SUMMARY | ~2019-09-05 | XMS | Encounter Summary ---
Demographics + + + | Address | [address] | | | [place] [address] | + + + | Home Phone [...] [facility] | | | and [place] | + + + | Organization | [facility] | [...] [place] | | | | | [address] | | + + + + + | Najma Xiong | ECON | Unknown | | + + + + + | Hector Mack | ECON | [address] | | | | | [place] | | | | | [address] | | + + + + + Care Team Providers + +------+ + | Care Robotics Mechanic Name | Role | Phone | + +------+ + PCP | Unavailable | + +------+ + Encounter Details +--------+ + + + + | Date | Type | Department | Care Team | Description | +--------+ + + + + | 07/23/ | Hospital | [facility] | Duarte Moon MD | | | 2012 | Encounter | [facility] | [address] | | | | | MEDICAL CL[facility] [address] | [place], [place] | | | | | [address] [facility], | [address] | | | | | [place] [address] | | | | | | [phone] | | | +--------+ + + + [...]
--- OUTSIDE RECORDS SUMMARY | ~2019-09-05 | XMS | Encounter Summary ---
Demographics + + + | Address | [address] | | | [place] [address] | + + + | Home Phone [...] | Author | [facility] | | | and [place] | + + + | Organization | [facility] | | [...] [place] | | | | | [address] | | + + + + + | Najam Xiong | ECON | Unknown | | + + + + + | Hector Mack | ECON | [address] | | | | | [place] | | | | | [address] | | + + + + + Care Team Providers + +------+ + | Care Vascular Surgery Physician Name | Role | Phone | + +------+ + PCP | Unavailable | + +------+ + Encounter Details +--------+ + + + + | Date | Type | Department | Care Team | Description | +--------+ + + + + | 04/22/ | Hospital | [facility] | Conversion | Pain | | 2012 | Encounter | CONVERSION [address] | Transaction, | | | | | [address] | Provider Unknown | | | | | [place], [place] | | | | | | [address] | (Fax) | | | | | [phone] | | | +--------+ + + + [...] [place] | | | | | | [address] | | | | | | | [...]
--- OUTSIDE RECORDS SUMMARY | ~2019-09-05 | XMS | Clinical Summary ---
Demographics + + + | Address | [address] | | | [place] [address] | + + + | Home Phone [...] | Organization | [facility] [...] [place] | | | | | [address] | | + + + + + | Najma Xiong | ECON | Unknown | | + + + + + | Hector Mack | ECON | [address] | | | | | [place] | | | | | [address] | | + + + + + Care Team Providers + +------+ + | Care Engraving Supervisor Name | Role | Phone | [...] [place] | | | | | | [address] | | | | | | | [...] [address] | [place] | [phone] | | [facility] | | [address] | | | - LABORATORY | | [...] + | [facility] | [address] | [place] | [phone] | | [facility] | | [address] | | | - LABORATORY | | [...] mL/min/1.73m2 | [facility] | | | [place]DIAN | RATE,ESTIMATED | | MEDICAL | | | | mL/min/1.14v3Wpmw than | | CENTER - | | [...] ST. | [address] | [place], [place] | [phone] | | [facility] | | [address] | | | - LABORATORY | | [...] | | | | | | [employer] | | | | | [...] [address] | [place] | [phone] | | [facility] | | [address] | | | - LABORATORY | | [...] ST. | [address] | [place] | [phone] | | [facility] | | [address] | | | - LABORATORY | | [...] method in use as of | | [facility] | | | | May 27, 2018. [...] [address] | [place] | [phone] | | [facility] | | [address] | | | - LABORATORY | | [...] | | | | ANDREW WARE, ERWIN ([id number]) | | | | | | on [...] +--------+ +---------+--------+ | MEDICARE | MEDICA | [id number] | 05/29/18 | [phone] | | Medica | | | RE | | 94-Pre | 5 | | re | | | PART A | | sent | | | | | | AND B | | | | | | + +--------+ +--------+ +---------+--------+ | MEDICARE | MEDICA | [id number] | 05/29/18 | [phone] | | Medica | | | RE | | 94-Pre | 5 | | re | | | PART A | | sent | | | | | | AND B | | | | | | + +--------+ +--------+ +---------+--------+ | MEDICARE | MEDICA | [id number] | 05/29/18 | [phone] | | Medica | | | RE | | 94-Pre | 5 | | re | | | PART A | | sent | | | | | | AND B | | | | | | + +--------+ +--------+ +---------+--------+ | [employer]AN | MODA | [id number] | 03/31/19 | [phone] | | Medica | | MEDICAID HMO | HEALTH | | 19-Pre | 1 | | id | | | MDCD | | sent | | | | | | [place] | | | | | | + +--------+ +--------+ +---------+--------+ | [employer]AN | MODA | [id number] | 03/31/19 | [phone] | | Medica | | MEDICAID HMO | HEALTH | | 19-Pre | 1 | | id | | | MDCD | | sent | | | | | | [place] | | | | | | + +--------+ +--------+ +---------+--------+ | MEDICAID [place] | MEDICA | [id number] | | [phone] | | Medica | [...] | 1946 | [phone] | [place] [address] | | | demetrius | | | 8 (Home) | | + +--------+ +--------+ + + | Germaine Ugalde | Person | Self | [birth year] | [address] | | D | al/Fam | | 1946 | [phone] | [place] [address] | | | demetrius | | | 8 (Home) | | + +--------+ +--------+ + + | Germaine Ugalde | Person | Self | [birth year] | [address] | | D | al/Fam | | 1946 | [phone] | [place] [address] | | | demetrius | | | 8 (Home) | | + +--------+ +--------+ + + | Germaine Ugalde | Person | Self | [birth year] | | [address] | | D | al/Fam | | 1946 | [phone] | [place] [address] | | | demetrius | | | 8 (Home) | | + +--------+ +--------+ + + Advance Directives + + + + + | Type | Date Recorded | Patient | Explanation | | | | Hydrology Teacher | | + + + + + | Power of | | | | | Inside Solar Sales Consultant | | | | + + [...]
--- OUTSIDE RECORDS SUMMARY | ~2019-09-05 | XMS | Encounter Summary ---
Demographics + + + | Address | [address] | [...] [place] | | | | | [address] | | + + + + + Care Team Providers + +------+ + | Care Quality Analyst Name | Role | Phone | [...] 06/02/ | Office | Preoperative | 1, [facility] Postal Transportation Clerk [address] | Other Specified | | 2007 | Visit | Medicine Clinic at | [address] | Pre-Operative | | | | [facility] 4th Floor [address] | [place] [address] | Examination (Primary | | | | [address] | | Dx) | | | | Mailcode: [facility] | | | | | | [facility] | | | | | | and Healing, | | | | | | Building 1,4th Floor | | | | | | [place], [place] | | | | | | [address] | | | | | | [phone] | | | +--------+---------+ + + + [...] + + + + | [facility] DEPARTMENT OF | [address] | [place] [address] | | | PATHOLOGY | [address] | | | + + + + + | [facility] DEPARTMENT OF | [address] | [place] [address] | | | PATHOLOGY | [address] [...] Performed At | + + + | [id number] Estimated GFR = 48 mL/min/1.73 sq m if non- | [facility] | | [address]907 Estimated GFR = 59 mL/min/1.73 sq m [...] + + + + | [facility] | [address] | [place] [address] | | | PATHOLOGY | [address] | | | + + + + + | [facility] DEPARTMENT | [address] | [place] [address] | | | PATHOLOGY | [address] [...] + + + | Please click | [facility] DEPT OF | | on view image for the detailed interpretation from [employer] results. | CARDIOLOGY | | | | + + + + + + + + | Performing | Address | City/State/Zipcode | Phone Number | | Organization | | | | + + + + + | [facility] DEPT OF | [address] | [place], [place] | | | CARDIOLOGY | [address] | [address] | | + + + + + | [facility] DEPT OF | [address] | [place], [place] | | | CARDIOLOGY | [address] | [address] | | + + + + + documented in this encounter Visit Diagnoses + + | Diagnosis | + + | Other specified pre-operative examination - Primary | + + documented in this encounter
--- OUTSIDE RECORDS SUMMARY | ~2019-09-05 | XMS | Encounter Summary ---
Demographics + + + | Address | [address] | | | [place] [address] | + + + | Home Phone [...] + + + | Organization | and [facility] | | [...] [place] | | | | | [address] | | + + + + + | Najma Xiong | ECON | Unknown | | + + + + + | Hector Mack | ECON | [address] | | | | | [place] | | | | | [address] | | + + + + + Care Team Providers + +------+ + | Care Police Sergeant Name | Role | Phone | [...] [address] | | | | | [place] | [place] | | | | | [place] [address] | [address] | | | | | [phone] | | | +--------+ + + + [...]
--- OUTSIDE RECORDS SUMMARY | ~2019-09-05 | XMS | Encounter Summary ---
Demographics + + + | Address | [address] | | | [place] [address] | + + + | Home Phone [...] [place] | | | | | [address] | | + + + + + Care Team Providers + +------+ + | Care Gis Physical Scientist Name | Role | Phone | [...] [id number] | | | | | | [place], [place] | | | | | | [address] | | | | | | [phone] | | | +--------+ + + + [...] DEPARTMENT OF | [address] | [place] [address] | | | PATHOLOGY | [address] | | | + + + + + | [facility] DEPARTMENT OF | [address] | [place] [address] | | | PATHOLOGY | [address] [...] Performed At | + + + | 565841 Estimated GFR > 60 mL/min/1.73 sq m if non- | [facility] | | [id number] Estimated GFR > 60 mL/min/1.73 sq m [...] | + + + + + | [facility] | [address] | [place] [address] | | | PATHOLOGY | [address] | | | + + + + + | [facility] | [address] [facility] [address] [facility] | [place] [address] | | | PATHOLOGY | [address] [...] DEPARTMENT OF | [address] | [place] [address] | | | PATHOLOGY | [address] | | | + + + + + | [facility] DEPARTMENT OF | [address] | [place] [address] | | | PATHOLOGY | [address] | | | + + + + + documented in this encounter Visit Diagnoses Not on filedocumented in this encounter"
--- OUTSIDE RECORDS SUMMARY | ~2019-09-05 | XMS | Encounter Summary ---
Demographics + + + | Address | [address] | | | [place] [address] | + + + | Home Phone [...] Organization | [facility] | | [...] [place] | | | | | [address] | | + + + + + | Najma Xiong | ECON | Unknown | | + + + + + | Hector Mack | ECON | [address] | | | | | [place] | | | | | [address] | | + + + + + Care Team Providers + +------+ + | Care Patient Service Technician Pst Name | Role | Phone | + +------+ + PCP | Unavailable | + +------+ + Encounter Details +--------+ + + + + | Date | Type | Department | Care Team | Description | +--------+ + + + + | 04/05/ | Hospital | [facility] | | | | 1996 - | Encounter | MED CTR MED ONC | | | | | | [address] | | | | 04/09/ | | [place] [address] | | | | 1996 | | [phone] | | | +--------+ + + + [...] [place] | | | | | | [id number] | | | | | | | | +--------+---------+ + + + documented as of this encounter Visit Diagnoses Not on filedocumented in this encounter"
--- OUTSIDE RECORDS SUMMARY | ~2019-09-05 | XMS | Encounter Summary ---
Demographics + + + | [address] | [address] | | | [place] [address] | + + + | Home Phone [...] [place] | | | | | [phone] | | + + + + + Care Team Providers + +------+ + | Care [employer] Coating Machine Offbearer Name | Role | Phone | [...] [address] | | | | | | [place], [place] | | | | | | [phone] | | | +--------+ + + + [...]
--- OUTSIDE RECORDS SUMMARY | ~2019-09-05 | XMS | Encounter Summary ---
Demographics + + + | Address | [address] | | | [place] [address] | + + + | Home Phone [...] | [facility] | | [...] [place] | | | | | [address] | | + + + + + | Najma Xiong | ECON | Unknown | | + + + + + | Hector Mack | ECON | [address] | | | | | [place] | | | | | [address] | | + + + + + Care Team Providers + +------+ + | Care Mold Builder Name | Role | Phone | + +------+ + PCP | Unavailable | + +------+ + Encounter Details +--------+ + + + + | Date | Type | Department | Care Team | Description | +--------+ + + + + | 04/14/ | Hospital | [facility] | Trevor Keating | | | 2000 - | Encounter | [facility] | Jesús Lee | | | | | CARDIAC TRANSPLANT | SHAYLA HOGAN | | | 04/21/ | | [address] | [place]BLE | | | 2000 | | [place], [place] | [address] | | | | | [address] | [phone] | | | | | [phone] | | | | | | | Colton Soto, | | | | | | [address] | | | | | | [place], [place] | | | | | | [...] [place] | | | | | | [id number] | | | | | | | | +--------+---------+ + + + documented as of this encounter Visit Diagnoses Not on filedocumented in this encounter"
--- OUTSIDE RECORDS SUMMARY | ~2019-09-05 | XMS | Encounter Summary ---
Demographics + + + | Address | [address] | | | [place] [address] | + + + | Home Phone [...] Organization | [facility] | | | and [place] [...] [place] | | | | | [address] | | + + + + + | Najma Xiong | ECON | Unknown | | + + + + + | Hector Mack | ECON | [address] | | | | | [place] | | | | | [address] | | + + + + + Care Team Providers + +------+ + | Care Engine Designer Name | Role | Phone | + +------+ + PCP | Unavailable | + +------+ + Encounter Details +--------+ + + + + | Date | Type | Department | Care Team | Description | +--------+ + + + + | 08/01/ | Hospital | [facility] | Rina Diaz MD | CHEST PAIN NEC | | 2003 - | Encounter [facility] | [address] | | | | | INTENSIVE CARE UNIT | [place] [address] | | | 08/02/ | | [address] | [phone] | | | 2003 | | [place], [place] | | | | | | [address] | | | | | | [phone] | | | +--------+ + + + [...]
--- OUTSIDE RECORDS SUMMARY | ~2019-09-05 | XMS | Encounter Summary ---
Demographics + + + | Address | [address] | | | [place] [address] | + + + | Home Phone [...] | Organization | [facility] | | | and [place] [...] [place] | | | | | [address] | | + + + + + | Najma Xiong | ECON | Unknown | | + + + + + | Hector Mack | ECON | [address] | | | | | [place] | | | | | [address] | | + + + + + Care Team Providers + +------+ + | Care Rag Boiler Name | Role | Phone | + +------+ + PCP | Unavailable | + +------+ + Encounter Details +--------+ + + + + | Date | Type | Department | Care Team | Description | +--------+ + + + + | 10/16/ | Hospital | [facility] | Lalo Londono MD | | | 2005 | Encounter | MED CTR GENERIC OP | [address], [place] | | | | | CONV DEPT [address] | [address] [place], [place] | | | | | [address], | [address] | | | | | [place] [address] | | | | | | [phone] | | | +--------+ + + + [...]
--- OUTSIDE RECORDS SUMMARY | ~2019-09-05 | XMS | Encounter Summary ---
Demographics + + + | Address | [address] | | | [place] [address] | + + + | Home Phone [...] [place] | | | | | [address] | | + + + + + Care Team Providers + +------+ + | Care Fern Cutter Name | Role | Phone | [...] | | | | | | | [facility] | | | | | | | [address] | | | | | | | [facility] | | | | | | | [facility] | | | | | | | [place], [place] | | | | | | | [address] | | | | | | | Phone: | | | | | | | [phone] | | | | | | | Fax: | | | | | | | [phone] | +--------+--------+ + + + + Encounter Details +--------+---------+ + + + | Date | Type | Department | Care Team | Description | +--------+---------+ + + + | 05/09/ | Office | Preoperative | Steven, | Preop Examination | | 2008 | Visit | Medicine Clinic at | [facility] | (Primary Dx); | | | | [facility] 4th Floor [address] | | Long-Term (Current) | | | | [address] | | Use of | | | | Mailcode: CH4S | | Anticoagulants | | | | [facility] | | | | | | and Healing, | | | | | | [facility] | | | | | | [place], [place] | | | | | | [address] | | | | | | [phone] | | | +--------+---------+ + + + [...] + | [facility] | [address] | [place] [address] | | | PATHOLOGY | [address] | | | + + + + + | [facility] | [address] | [place] [address] | | | PATHOLOGY | [address] [...] | + + + + + | [facility] | [address] | [place] [address] | | | PATHOLOGY | [address] | | | + + + + + | [facility] | [address] | [place] [address] | | | PATHOLOGY | [address] [...] Performed At | + + + | [id number] Estimated GFR > 60 mL/min/1.73 sq m if non- | [facility] | | [place]i [address]37[address] Estimated GFR > 60 mL/min/1.73 sq m if | DEPARTMENT OF | | [place]i GFR is estimated using the MDRD equation [...] + | [facility] | [address] [facility] [facility] | [place] [address] | | | PATHOLOGY | [address] | | | + + + + + | [facility] | [address] [place] [address] | [place] [address] | | | PATHOLOGY | [address] [...] | + + + + + | [facility] | [facility] | [place] [address] | | | PATHOLOGY | [address] | | | + + + + + | [facility] DEPARTMENT OF | [address] | [place] [address] | | | PATHOLOGY | [address] [...]
--- OUTSIDE RECORDS SUMMARY | ~2019-09-05 | XMS | Encounter Summary ---
Demographics + + + | Address | [address] | | | [place] [address] | + + + | Home Phone [...] Author | [facility] | | | and [place] | + + + | Organization | [facility] | | | and [place] | + [...] [place] | | | | | [address] | | + + + + + | Najma Xiong | ECON | Unknown | | + + + + + | Hector Mack | ECON | [address] | | | | | [place] | | | | | [address] | | + + + + + Care Team Providers + +------+ + | Care Drawing Kiln Supervisor Name | Role | Phone | + +------+ + PCP | Unavailable | + +------+ + Encounter Details +--------+ + + + + | Date | Type | Department | Care Team | Description | +--------+ + + + + | 02/15/ | Hospital | [facility] | | | | 1995 - | Encounter | MED CTR ICU [address] | | | | | | [place], | | | | 02/18/ | | [place] [address] | | | | 1995 | | [phone] | | | +--------+ + + + [...] [place] | | | | | | [id number] | | | | | | | | +--------+---------+ + + + documented as of this encounter Visit Diagnoses Not on filedocumented in this encounter"
--- OUTSIDE RECORDS SUMMARY | ~2019-09-05 | XMS | Encounter Summary ---
Demographics + + + | Address | [address] | | | [place] [address] | + + + | Home Phone [...] + | Organization | [facility] | [...] [place] | | | | | [address] | | + + + + + | Najma Xiong | ECON | Unknown | | + + + + + | Hector Mack | ECON | [address] | | | | | [place] | | | | | [address] | | + + + + + Care Team Providers + +------+ + | Care Product Transfer Pumper Name | Role | Phone | [...] [address] | | | | [address] | [facility]. | | | | | [address] [place], [place] | [place], [place] | | | | | [address] | [address] | | | | | [phone] | [phone] | | | | | | | [...]
--- OUTSIDE RECORDS SUMMARY | ~2019-09-05 | XMS | Encounter Summary ---
Demographics + + + | Address | [address] | | | [place] [address] | + + + | Home Phone | | + + + | Preferred Language | Unknown | + + + | Marital Status | | + + + | Judaism Affiliation | 1077 | + + + | Race | Unknown | + + + | Ethnic Group | Unknown | + + + Author + + + | Author | [facility] | | | and [place] | + + + | Organization | [facility] | | | [...] [place] | | | | | [address] | | + + + + + | Najma Xiong | ECON | Unknown | | + + + + + | Hector Mack | ECON | [address] | | | | | [place] | | | | | [address] | | + + + + + Care Team Providers + +------+ + | Care Operations Developer Name | Role | Phone | + +------+ + PCP | Unavailable | + +------+ + Encounter Details +--------+ + + + + | Date | Type | Department | Care Team | Description | +--------+ + + + + | 11/12/ | [facility] | [facility] | Lalo Londono MD | | | 2004 | Encounter | MED CTR GENERIC OP | [address], [place] | | | | | CONV DEPT [address] | [address] [place], [place] | | | | | [place], | [address] | | | | | [place] [address] | | | | | | [phone] | | | +--------+ + + + [...]
--- OUTSIDE RECORDS SUMMARY | ~2019-09-05 | XMS | Encounter Summary ---
Demographics + + + | Address | [address] | | | [place] [address] | + + + | Home Phone [...] | Organization | [facility] [...] [place] | | | | | [address] | | + + + + + | Najma Xiong | ECON | Unknown | | + + + + + | Hector Mack | ECON | [address] | | | | | [place] | | | | | [address] | | + + + + + Care Team Providers + +------+ + | Care Precinct Police Sergeant Name | Role | Phone | + +------+ + | Satinder Samson MD | PCP | | + +------+ + Encounter Details +--------+--------+ + + + | Date | Type | Department | Care Team | Description | +--------+--------+ + + + | 07/25/ | Intake | LESLIE GORDON | | N/A | | 2019 | | [place] [address] | | | | | | [facility] | | | | | | [place], [place] | | | | | | [address] | | | | | | [phone] | | | +--------+--------+ + + + [...] [place] | | | | | | [address] | | | | | | | | +--------+---------+ + + + documented as of this encounter Visit Diagnoses Not on filedocumented in this encounter"
--- OUTSIDE RECORDS SUMMARY | ~2019-09-05 | XMS | Encounter Summary ---
Demographics + + + | Address | [address] | | | [place] [address] | + + + | Home Phone [...] [place] | | | | | [address] | | + + + + + Care Team Providers + +------+ + | Care Civil Geotechnical Engineer Name | Role | Phone | [...] Isaiah | | | | | at [facility] | [facility] | | | | | [address] | [place] [address] | | | | | [address] | | | | | | [place], [address] [place] [address] | | | | | | [place], [place] | | | | | | [address] | | | | | | [phone] | | | +--------+ + + + [...] uncontrolled(250.72) | | | | | | ([facility]) Obesity | | | | [...] view image for the detailed interpretation from [employer] results. | CARDIOLOGY | | | | + + + + + + + + | Performing | Address | City/State/Zipcode | Phone Number | | Organization | | | | + + + + + | [facility] | [address] | [place], [place] | | | CARDIOLOGY | [address] | [address] | | + + + + + | [facility] | [address] | [place] | | | CARDIOLOGY | [address] | [address] | | + + + + + documented in this encounter Visit Diagnoses Not on filedocumented in this encounter
--- OUTSIDE RECORDS SUMMARY | ~2019-09-05 | XMS | Encounter Summary ---
Demographics + + + | Address | [address] | | | [place] [address] | + + + | Home Phone [...] [place] | | | | | [address] | | + + + + + Care Team Providers + +------+ + | Care Water Pump Assembler Name | Role | Phone [...] Pranay | | | | | | [address] | [address] | | | | | | [place] | [address] | | | | | | [address] | [place], [place] | | | | | | [place], [place] | [address] | | | | | | [address] | | | | | | | Phone: | | | | | | | [phone] | | | | | | | Fax: | | | | | | | [phone] | | +--------+--------+ + + + + [...] (Coronary Artery | | | | Mailcode: [id number] | | Disease); Sleep | | | | [facility] | | Apnea; Gout; DM Circ | | | | [address] [place], | | [place], | | | | [place] [address] | | Uncontrolled ([facility]); | | | | [phone] | | Dyslipidemia | +--------+---------+ + + [...] Notes Pranay Melendez - 11/21/2005 9[facility]02 [facility] a morbidly obese woman [...] will be manageable. 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 [...] DEPARTMENT OF | [address] | [place] [address] | | | PATHOLOGY | [address] | | | + + + + + | [facility] | [address] | [place] [address] | | | PATHOLOGY | [address] | | | + + + + + documented in this encounter Visit Diagnoses + + | Diagnosis | + + | Dysmetabolic syndrome X Dysmetabolic Syndrome X | + + | CAD (coronary artery disease) Coronary atherosclerosis of unspecified type of vessel, | | navajo or graft | + + | Sleep [...]
--- OUTSIDE RECORDS SUMMARY | ~2019-09-05 | XMS | Encounter Summary ---
Demographics + + + | Address | [address] | | | [place] [address] | + + + | Home Phone [...] [place] | | | | | [address] | | + + + + + Care Team Providers + +------+ + | Care Business Director Name | Role | Phone | [...] as of this encounter Progress Notes Interface, Medical Records Coder In - 05/24/2005 2:07 AM [facility] [id number] 05/23/2005 05/23/2005 [id number] ARETHA RAE [place] [address] [place] [address] or May 23, 2005 Bryan Garza M.D. [address] [place] [address] RE: GERMAINE CARIAS MR #: [id number] Dear Dr. Garza: I saw your patient, Mrs. Germaine Carias in my office on , May 23, 2005. I went over her records and those of Dr. Walker in [place]. This pleasant, obese, 59-year-old female has a [...] junction. Dilation was performed up to a 20-Syrian Microvasive balloon, and the patient claims that [...] is unemployed. She smoked, has about a 75-aayd-cpbg smoking history but has not smoked in [...] Sincerely, Wes Wolff M.D. Ren / PASCUAL [id number] / [id number] / [id number] / cc: Lalo Walker M.D. [facility] [address] [place] [id number] documented i n this encounter Plan of Treatment Not on filedocumented as of this encounter Visit Diagnoses Not on filedocumented in this encounter"
--- OUTSIDE RECORDS SUMMARY | ~2019-09-05 | XMS | Encounter Summary ---
Demographics + + + | Address | [address] [place] [address] | | | [place] [address] | + + + | Home Phone [...] [place] | | | | | [address] | | + + + + + Care Team Providers + +------+ + | Care Card Boxer Name | Role | Phone | + [...] [id number] | | | | | | [place], [place] | | | | | | [address] | | | | | | [phone] | | | +--------+ + + + [...] DEPARTMENT OF | [address] | [place] [address] | | | PATHOLOGY | [address] | | | + + + + + | [facility] DEPARTMENT OF | [address] | [place] [address] | | | PATHOLOGY | [address] [...] Performed At | + + + | [id number] Estimated GFR > 60 mL/min/1.73 sq m if non- | [facility] | | [id number] Estimated GFR > 60 mL/min/1.73 sq m [...] + + + + + | [facility] | [address] | [place] [address] | | | PATHOLOGY | [address] | | | + + + + + | [facility] | [address] | [place] [address] | | | PATHOLOGY | [address] [...] DEPARTMENT OF | [address] | [place] [address] | | | PATHOLOGY | [address] | | | + + + + + | [facility] DEPARTMENT OF | [address] | [place] [address] | | | PATHOLOGY | [address] | | | + + + + + documented in this encounter Visit Diagnoses Not on filedocumented in this encounter"
--- OUTSIDE RECORDS SUMMARY | ~2019-09-05 | XMS | Encounter Summary ---
Demographics + + + | Address | [address] | | | [place] [address] | + + + | Home Phone [...] [place] | | | | | [address] | | + + + + + Care Team Providers + +------+ + | Care Heart Coordinator Name | Role | Phone | [...]
--- OUTSIDE RECORDS SUMMARY | ~2019-09-05 | XMS | Encounter Summary ---
Demographics + + + | Address | [address] | | | [place] [address] | + + + | Home Phone [...] [place] | | | | | [address] | | + + + + + Care Team Providers + +------+ + | Care Sheriffs Detective Name | Role | Phone | + [...] as of this encounter Progress Notes Interface, Rn Bsn In - 02/15/2006 2:34 AM [facility] [id number] ANTONIETTAKRZYSZTOF RAE [id number] Referred From and Faxed To: Tim Paula Referred To: Caityln Chery R.D., L.D. Consulting Physician: Caitlyn Chery [...] 4:01. Length of Visit: Sixty-one minutes of dmiz-zj-rczs consult with the patient and her friend [...] with myself, dietitian post-surgery. She is from [place]. This visit can be scheduled when she has a followup appointment with her surgeon here at [facility] Patient's Comprehension: This visit was incredibly [...] friend Lulu. Caitlyn Chery R.D., L.D. / [id number] / [id number] / [id number] / cc: Chey Milan A.NSonyPSony Electronically signed by Caitlyn Chery 02-14-2006 01:37:50 PM documented i n this encounter Plan of Treatment Not on filedocumented as of this encounter Visit Diagnoses Not on filedocumented in this encounter"
--- OUTSIDE RECORDS SUMMARY | ~2019-09-05 | XMS | Encounter Summary ---
Demographics + + + | Address | [address] | | | [place] [address] | + + + | Home Phone [...] + | Author | [facility] | | | and [place] | + + + | Organization | [facility] [...] [place] | | | | | [id number] | | + + + + + | Najma Xiong | ECON | Unknown | | + + + + + | Hector Mack | ECON | [address] | | | | | [place] | | | | | [id number] | | + + + + + Care Team Providers + +------+ + | Care Wealth Management Manager Name | Role | Phone | + +------+ + | Satinder Samson MD | PCP | | + +------+ + Reason for Visit Auth/Cert +--------+--------+ + + + + | Status | Reason | Specialty | Diagnoses / | Referred By | Referred To | | | | | Procedures | Contact | Contact | +--------+--------+ + + + + | | | | Diagnoses | | | | | | | seizure | | | | | | | activity | | | +--------+--------+ + + + + Encounter Details +--------+ + + + + | Date | Type | Department | Care Team | Description | +--------+ + + + + | 07/25/ | Hospital [facility] | Julia, Anne-Hwa, MD | Elevated troponin; | | 2019 - | Encounter | [facility] | [address] | Acute on chronic | | | | [address] | [place] | diastolic congestive | | | | [place] [id number] | [id number] | heart failure | | 2019 | | [phone] | | ([facility]); Paroxysmal | | | | | | atrial fibrillation | | | | | | ([facility]) | +--------+ + + + + Social [...] do you have serious | No | 07/28/2019 | | difficulty hearing? | | | + + + + | Are you blind or do you have serious | No | 07/28/2019 | | difficulty seeing, even when wearing | | | | glasses? | | | + + + + | Do you have serious difficulty walking or | No | 07/28/2019 | | climbing stairs? (5 years old or older) | | | + + + + | Do you have difficulty dressing or bathing? | No | 07/28/2019 | | (5 years old or older) | | | + + + + | Because of a physical, mental, or emotional | Yes | 07/28/2019 | | condition, do you have difficulty [...] of a physical, mental, or emotional | Yes | 07/28/2019 | | condition, do you have serious difficulty | | | | concentrating, remembering, or making | | | | decisions? (5 years old or older) | | | + + + + documented as of this encounter Discharge Summaries Jay Dennis MD - 07/28/2019 11:05 AM PDTFormatting of this note might be differen t from the original. [place] HOSPITALIST DISCHARGE SUMMARY Pt. Name/Age/: Germaine Mack 73 y.o. 1945 Date of Admission: 07/26/2019 Date of Discharge: 07/28/2019 Admitting Physician: Mirna Dumont MD Primary Care Provider: Satinder Samson MD Discharging Physician: Jay Dennis MD DISCHARGE DIAGNOSES: Active Hospital Problems Diagnosis Elevated troponin Paroxysmal atrial fibrillation Resolved Hospital Problems No resolved problems to display. DISCHARGE MEDICATIONS: Discharge Medications Unchanged Medications Details acetaminophen 325 mg tablet Notes to patient: Do not exceed 4,000 mg of acetaminophen from all sources in 24 hours Take 2 tablets by mouth every 4 hours as needed for Pain (or fever >= 38.6 C (101.5 F)). aka: TYLENOL albuterol 90 mcg/puff inhaler Inhale 2 puffs into the lungs every 4 (four) hours as needed for Wheezing or Shortness of Breath. aspirin 81 mg chewable tablet Notes to patient: For heart health. Please take with food! Take 1 tablet by mouth Daily. atorvaSTATin 40 mg tablet Notes to patient: For cholesterol Take 1 tablet by mouth nightly. aka: LIPITOR calcium carbonate 500 mg chewable tablet Notes to patient: To help reduce stomach acid reflux. Take 1 tablet by mouth daily. aka: TUMS clopidogrel 75 mg tablet Notes to patient: To help prevent blood clots. Take 1 tablet by mouth Daily. aka: PLAVIX ferrous sulfate 325 mg tablet Notes to patient: For anemia. Take 1 tablet by mouth daily (with breakfast). furosemide 20 mg tablet Take 1 tablet by mouth every other day as needed (Bilateral lower extremity edema). aka: LASIX levETIRAcetam 750 MG tablet Notes to patient: To help control seizures. Take 1 tablet by mouth 2 (two) times daily. aka: KEPPRA lisinopril 20 mg tablet Notes to patient: For heart and blood pressure. Take 1 tablet by mouth Daily. aka: PRINIVIL, ZESTRIL metoprolol succinate 25 mg 24 hr tablet Notes to patient: For heart and blood pressure. Take 1 tablet by mouth daily. aka: TOPROL-XL nicotine 14 mg/24 hr Notes to patient: To help quit smoking. Place 1 patch onto the skin Daily. aka: NICODERM nystatin [id number] UNIT/GM powder Notes to patient: For fungal infection. Wash and dry under both breasts, apply nystatin powder under both breasts aka: MYCOSTATIN potassium chloride 10 MEQ ER tablet Notes to patient: To replace potassium blood loss with furosemide use. Take 1 tablet by mouth Daily. aka: KEIRY senna 8.6 mg tablet Take 1 tablet by mouth daily as needed for Constipation. aka: ARLYN Discontinued Medications metoprolol tartrate 25 mg tablet aka: LISANDRO HOSPITAL COURSE: Please refer to the H&P for full details and the most recent rounding rounding (progress) n ote. 73F PMhx seizure disorder, paroxysmal afib. Hx of stents circumflex/RCA and prior CABG x3 ( LAD, diagonal and RCA), prior CVA history, CHFpEF, HTN, Dementia, COPD, chronic dysphagia, p resented from [facility] ED after seizure missing night Keppra dose, found to have elevate d troponin transferred for ACS workup. #Elevated troponin, likely type 2 [place], less likely ACS #CHF exacerbation #History of CAD s/p stents Cx/RCA with CABG x3 (LAD, Diagonal, and RCA) Previous heart cath 05/2015 showing evidence of occlusion of RCA graft. No chest pain prior to admission. troponins continued to downtrend during admission. Peaked at [facility] at 0.49, downtrend to 0.19. ECHO 07/2018 showed EF 55-60% with concentric hypertrophy. EKG showed nonspecific t wave abnormalities with inversions V4-V6, avL flattened, no st barry vation/depression 07/26 Cardiac stress test revealed 75% EF, signs of basal to mid inferior perfusion defect w ithout significant reversibility with known history of occluded RCA graft and history of mul tiple RCA stents noted on [facility] 2015. D/w cardiology Dr. Alves who read the stress test stati ng these findings are to be expected from her previous [facility] findings and recommended continue d medical management and outpatient follow up. No further troponin trend required. On 07/27 Patient continued to be chest pain free and without shortness of breath on room air . Was on lasix 20mg IV bid during admission well tolerated. Can continue home lasix PRN on d ischarge as patient is now clinically euvolemic. It is noted BNP 843 on admission. 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 History of seizures Missed keppra dose night prior to admission and presented to [facility] after seizure. N o seizures since admission. Continue home dose of keppra 750mg BID with follow up with primary care provider #Paroxysmal Afib Continue metoprolol succinate daily. Heart rate controlled during admission. Noted to not b e on anticoagulation for afib. Recommend continue follow up with primary care provider and c ardiology outpatient #HTN Continue home meds as prescribed, stable during admission. #Severe dysphagia Cleared by DELIVERY TABLE OPERATOR consult during admission and will continue her home diet. #Dementia Does not know place/time, lives with family. Is at baseline cognitive function during admis gris. Some periods of possible sundowning at night. Telesitter on during admission. Worked w ith PT/OT. On discharge will continue to follow up with her primary care provider and eduardo ue 21/10 assist with family at her home. #COPD duonebs prn. No signs of acute exacerbation during admission. Continue follow up outpatient . #Right knee limp Knee xray negative. PT/OT Most recent weight: Input and output for last 24hrs: Wt Readings from Last 1 Encounters: 07/26/19 66 kg (145 lb 8.1 oz) I/O last 24 Hours: In: 860 [P.O.:860] Out: 1200 [Urine:1200] Vitals Ranges: Temp: [35.7 C (96.3 F)-36.8 C (98.2 F)] 36.6 C (97.9 F) Pulse: [53-68] 60 Resp: [16] 16 BP: (99-140)/(56-72) 119/56 Vitals: Temp: 36.6 C (97.9 F) BP: 119/56 Pulse: 60 Resp: 16 SpO2: 96 % SpO2 96 % on room air at flow rate L/min PHYSICAL EXAM: Patient seen and examined by me on discharge day General NAD, AOx1, not place or time, dementia Cardiac RRR, no murmurs rubs or gallups Extremities No edema Lung CTA bilaterally Abdominal Soft, NT, ND, NBS Neuro No focal neuro deficits PROCEDURES AND CONSULTS: Procedures 07/25 CXR IMPRESSION: Cardiomegaly with mild pulmonary edema. An atypical infectious processes also a consideration. 07/25 Right Knee Xray IMPRESSION: Bony demineralization without acute osseous abnormality. 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 Consults PT/OT DELIVERY TABLE OPERATOR PENDING RESULTS: None DISPOSITION AND DISCHARGE INSTRUCTIONS: Follow-up Information Satinder Samson MD. Schedule an appointment as soon as possible for a visit in 1 week. Specialty: Family Medicine Why: Hospital Followup Contact information: [address] [place] [id number] Condition: Patient being discharged with condition improved Diet: dysphagia mechanical, 2gm Na, fat/cholesterol modified Greater than 30 minutes were spent on discharge and coordination of post-hospital care. Electronically signed by: Jay Dennis MD, 07/28/2019 11:20 AM [facility] Reference. This is NOT part of the patient's formal assessment section. In the assessment or plan section of notes the author may date some of the subsections with a number such as "23" or "23rd" to indicate the date of that entry or event. In the example below the 1st line is the original entry and the subsequent lines indicate flowing updates to the subsection: Example assessment subsection (such as CHF or CP or Pneumonia) 23 Patient is improved today with resolution of symptoms 24th Worse with recurrence of symptoms requiring further testing Portions of this chart may have been created with [employer] voice recognition software. Occasi onal wrong-word or sound-alike substitutions may have occurred due to the inherent moon itations of voice recognition software. Please read the chart carefully and recognize, using context, where these substitutions have occurred documented in th is encounter Discharge Instructions Instructions Mary Carmen Maldonado, PharmD - 07/28/2019Please follow up with your primary care pr ovider within 1 week for hospital follow up Continue your medications as prescribed If worsening shortness of breath, chest pain, loss of consciousness, seizures, please come to the ER for evaluation Eating Heart-Healthy Foods Eating has a big impact on your heart health. In fact, eating healthier can improve several of your heart risks at once. For instance, it helps you manage weight, cholesterol, and blo od pressure. Here are ideas to help you make heart-healthy changes without giving up allth e foods and flavors you love. Getting started Talk with your healthcare provider about eating plans, such as the DASH or Mediterranean diet. You may also be referred to a dietitian. Change a few things at a time. Give yourself time to get used to a few eating changes be fore adding more. Work to create a tasty, healthy eating plan that you can stick to for the rest of your l ten. Goals for healthy eating Below are some tips to improve your eating habits: Limit saturated fats and trans fats. Saturated fats raise your levels of cholesterol, so keep these fats to a minimum. They are found in foods such as fatty meats, whole milk, melvin se, and palm and coconut oils. Avoid trans fats because they lower good cholesterol as well as raise bad cholesterol. Trans fats are most often found in processed foods. Reduce sodium (salt) intake. Eating too much salt may increase your blood pressure. Limi t your sodium intake to 2,300 milligrams (mg) per day(the amount in 1 teaspoon of salt), o r less if your healthcare provider recommends it. Dining out less often and eating fewer pro cessed foods are two great ways to decrease the amount of salt you consume. Managing calories. A calorie is a unit of energy. Your body dunne calories for fuel, but if you eat more calories than your body dunne, the extras are stored as fat. Your healthcar e provider can help you create a diet plan to manage your calories. This will likely include eating healthier foods as well as exercising regularly. To help you track your progress, ke ep a diary to record what you eat and how often you exercise. Choose the right foods Aim to make these foods leonila of your diet. If you have diabetes, you may have different recommendations than what is listed here: Fruits and vegetables provide plenty of nutrients without a lot of calories. At meals, f ill half your plate with these foods. Split the other half of your plate between whole grain s and lean protein. Whole grains are high in fiber and rich in vitamins and nutrients. Good choices include whole-wheat bread, pasta, and brown rice. Lean proteins give you nutrition with less fat. Good choices include fish, skinless chic mariela, and beans. Low-fat or nonfat dairy provides nutrients without a lot of fat. Try low-fat or nonfat m ilk, cheese, or yogurt. Healthy fats can be good for you in small amounts. These are unsaturated fats, such as o live oil, nuts, and fish. Try to have at least 2 servings per week of fatty fish, such as sa lmon, sardines, mackerel, rainbow trout, and albacore tuna. These contain omega-3 fatty acid s, which are good for your heart. Flaxseed is another source of a heart-healthy fat. More on heart-healthy eating Read food labels Healthy eating starts at the grocery store. Be sure to pay attention to food labels on pack aged foods. Look for products that are high in fiber and protein, and low in saturated fat, cholesterol, and sodium. Avoid products that contain trans fat. And pay close attention to s erving size. For instance, if you plan to eat two servings, double all the numbers on the la bel. Prepare food right A kidd part of healthy cooking is cutting down on added fat and salt. Look on the internet f or lower-fat, lower-sodium recipes. Also, try these tips: Remove fat from meat and skin from poultry before cooking. Skim fat from the surface of soups and sauces. Broil, boil, bake, steam, grill, and microwave food without added fats. Choose ingredients that spice up your food without adding calories, fat, or sodium. Try these items: horseradish, hot sauce, lemon, mustard, nonfat salad dressings, and vinegar. Fo r salt-free herbs and spices, try basil, cilantro, cinnamon, pepper, and jaswinder. Date Last Reviewed: 12/29/201619998991-7066 [employer]. [address] [place] [address], [place] [address]. All righ ts reserved. This information is not intended as a substitute for professional medical care. Always follow your healthcare professional's instructions. Low-Salt Choices Eating salt(sodium)can make your body retain too much water. Excess water makes your he art work harder. Canned, packaged, and frozen foods are easy to prepare. But they are often high in sodium. Here are some ideas for low-salt foods you can easily make yourself. For breakfast Fruit or 100% fruit juice Whole-wheat bread or an Ugandan muffin. Look for sodium content on Nutrition Facts label s. Low-fat milk or yogurt Unsalted eggs Shredded wheat Weldon tortillas Unsalted steamed rice Regular (not instant) hot cereal, made without salt Stay away from: Sausage, martinez, and ham Flour tortillas Packaged muffins, pancakes, and biscuits Instant hot cereals Cottage cheese For lunch and dinner Fresh fish, chicken, turkey, or meat baked, broiled, or roasted without salt Dry beans, cooked without salt Tofu, stir-fried without salt Unsalted fresh fruit and vegetables, or frozen or canned fruit and vegetables with no ad ded salt Stay away from: Lunch or deli meat that is cured or smoked Cheese Tomato juice and ketchup Canned vegetables, soups, and fish not labeled as [id number] or reduced sodium Packaged gravies and sauces Olives, pickles, and relish Bottled salad dressings For snacks and desserts Yogurt Unsalted, air-popped popcorn Unsalted nuts or seeds Stay away from: Pies and cakes Packaged dessert mixes Pizza Canned and packaged puddings Pretzels, chips, crackers, and nuts unless the label says unsalted Date Last Reviewed: 08/29/201619998551-2710 [employer]. [address] [place] [address]. All righ ts reserved. This information is not intended as a substitute for professional medical care. Always follow your healthcare professional's instructions. AttachmentsThe following attachments cannot be sent through Care Everywhere.Atrial Fibrilla tion, Discharge Instructions for (Ugandan)Chest Pain, Noncardiac (Ugandan)Heart Failure, Di schasteffge Instructions for (Ugandan)Seizure, Recurrent (Adult) (Ugandan)documented in this enc ounter Medications at Time of Discharge + + [...] documented as of this encounter Progress Notes Jay Dennis MD - 07/27/2019 1:00 PM PDTFormatting of this note might be differen t from the original. [place] HOSPITALIST PROGRESS NOTE Patient: Germaine Mack : 1945: Age: 73 y.o. MedRec: [id number] PCP: Satinder Samson MD Admission date: 07/26/2019 Hospital day # : 1 Physician author: Jay Dennis MD Today: 07/27/2019 Assessment and Hospital Course Active Hospital Problems Diagnosis Elevated troponin Paroxysmal atrial fibrillation Resolved Hospital Problems No resolved problems to display. 73F PMhx seizure disorder, paroxysmal afib. Hx of stents circumflex/RCA and prior CABG x3 ( LAD, diagonal and RCA), prior CVA history, CHFpEF, HTN, Dementia, COPD, chronic dysphagia, p resented from [facility] ED after seizure missing night Keppra dose, found to have elevate d troponin transferred for ACS workup. Plan #Elevated troponin, likely type 2 [place], less likely ACS #CHF exacerbation #History of CAD s/p stents Cx/RCA with CABG x3 (LAD, Diagonal, and RCA) -previous heart cath 05/2015 showing evidence of occlusion of RCA graft. No chest pain prior to admission. troponins continued to downtrend during admission. Peaked at [facility] at 0.49, downtrend to 0.19. ECHO 07/2018 showed EF 55-60% with concentric hypertrophy. -EKG showed nonspecific t wave abnormalities with inversions V4-V6, avL flattened, no st el evation/depression -Cardiac stress test revealed 75% EF, signs of basal to mid inferior perfusion defect witho ut significant reversibility with known history of occluded RCA graft and history of multipl e RCA stents noted on [facility] 2015. D/w cardiology Dr. Alves who read the stress test stating t hese findings are to be expected from her previous [facility] findings and recommended continued ia dical management and outpatient follow up. -no further troponin trend, no further cardiac workup required inpatient at this time. -continue aspirin, plavix and lipitor -continue lisinopril and metoprolol -BNP 843 on admission: continue lasix 20mg IV bid while inpatient -f/u outpatient cardiology, no requirement to pursue [facility] inpatient at this time. #Seizure, postictal. History of seizures Missed keppra dose night prior to admission Continue home dose of keppra 750mg BID and seizure precautions #Paroxysmal Afib Metoprolol Monitor tele Not on home AC #HTN Metoprolol/lisinopril #Severe dysphagia Cleared by speech eval #Dementia Does not know place/time, lives with family PT/OT ordered Tele sitter Delirium precautions #COPD duonebs prn #Right knee limp Knee xray negative. PT/OT DVT ppx: heparin Gi PPx Diet: cardiac, fluid restrict 1800ml Dispo: likely 1 more day inpatient, PT/OT pending Goals of care Patient is DNR as per patient wishes, changed in chart on 07/26. Family agreed. Jay Dennis MD 07/27/2019 1:07 PM [facility] Subjective CC Denies chest pain or shortness of breath. Currently no complaints. No swelling, no fevers/c hills. ROS See above Objective Exam General NAD, AOx1 Cardiac RRR, no murmurs rubs or gallups Extremities No edema Lung CTA bilaterally Abdominal Soft, NT, ND, NBS Neuro No focal neuro deficits, follows commands and answers questions appropriately, does not kno w place or time on evaluation Serial weights: Filed Weights: 07/26/19 1535 Weight: 66 kg (145 lb 8.1 oz) Most recent weight: Input and output 2 shifts and 3 shifts: Wt Readings from Last 1 Encounters: 07/26/19 66 kg (145 lb 8.1 oz) I/O last 24 Hours: In: 120 [P.O.:120] Out: 1450 [Urine:1450] I/O last 3 completed shifts: In: 120 [P.O.:120] Out: 1450 [Urine:1450] Vitals Ranges: Temp: [35.7 C (96.3 F)-37.5 C (99.5 F)] 36.4 C (97.5 F) Pulse: [52-99] 63 Resp: [16-22] 16 BP: (115-183)/(67-83) 115/68 Vitals: Temp: 36.4 C (97.5 F) BP: 115/68 Pulse: 63 Resp: 16 SpO2: 97 % SpO2 97 % on room air at flow rate L/min Diet and Supplements Diet Diet fat and cholesterol modified; sodium restricted 2 gm; dysphagia mechanical; 1800 ml f luid; Effective Now Number of Occurrences: Until Specified Order Questions: Type Diet fat and cholesterol modified sodium restictions sodium restricted 2 gm Texture modifications dysphagia mechanical fluid volume restictions 1800 ml fluid Objective Data Allergies: No Known Allergies Current Medications: Current Facility-Administered Medications Medication Dose Route Frequency Provider Last Rate Last Dose albuterol-ipratropium 2.5-0.5 mg/3 mL nebulizer solution 3 mL 3 mL Nebulization RT Q4H PRN Mirna Duomnt MD atorvaSTATin (LIPITOR) tablet 40 mg 40 mg Oral Nightly Mirna Dumont MD 40 mg at 06/30 clopidogrel (PLAVIX) tablet 75 mg 75 mg Oral Daily Mirna Dumont MD 75 mg at 07/27/19 0941 furosemide (LASIX) injection 20 mg 20 mg Intravenous BID (8 and 16) Mirna Dumont MD 20 mg at 07/27/19 0943 levETIRAcetam (KEPPRA) tablet 750 mg 750 mg Oral BID Mirna Dumont MD 750 mg at 07/26 0941 lisinopril (PRINIVIL, ZESTRIL) tablet 10 mg 10 mg Oral Daily Mirna Dumont MD 10 mg a t 07/27/19 0941 LORazepam (ATIVAN) injection 2 mg 2 mg Intravenous Q6H PRN Mirna Dumont MD 2 mg at 0 07/27/19 0138 metoprolol succinate (TOPROL-XL) ER tablet 25 mg 25 mg Oral Daily Mirna Dumont MD 25 mg at 07/27/19 0941 nitroglycerin (NITROSTAT) SL tablet 0.4 mg 0.4 mg Sublingual Q5 Min PRN Nikky Mooney pantoprazole (PROTONIX) DR tablet 40 mg 40 mg Oral QAM AC Mirna Dumont MD 40 mg at 0 07/27/19 0638 thiamine (VITAMIN B-1) tablet 100 mg 100 mg Oral Daily Mirna Dumont MD 100 mg at 0943 Current Infusions: Hematology and anemia Recent Labs Lab 07/27/19240 WBC 7.2 HGB 12.3 HCT 38.2 PLT 184 No results for input(s): PROTIME, INR, PTT in the last 168 hours. No results for input(s): IRON, TIBC, PCTSAT, FERRITIN, TSH, [id number], FOLATE in the last 168 hours. Inflammatory markers Recent Labs Lab 07/26/192020 PROCALCITONI <0.05 Chemistry Recent Labs Lab 07/27/1924007/26/19 1450 GLU 96 102 NA 142 144 K 3.3* 3.1* CL 106 107 CO2 32* 32* ANIONGAP 4 5 BUN 10 8* CREA 0.79 0.65 GFRNONAA >60 >60 CALCIUM 8.2* 8.5* Recent Labs Lab 07/27/1924007/26/19 1450 MG 2.2 1.9 No results for input(s): AMYLASE, LIPASE in the last 168 hours. No results for input(s): TRIG, CHOL, HDL, LDL in the last 168 hours. No results for input(s): AMMONIA in the last 168 hours. Cardiology & Digoxin Recent Labs Lab 07/27/1924007/26/19202007/26/19 1450 TROPONIN 0.19* 0.25* 0.37* BNP -- -- 803* ABG No results for input(s): PHART, PO2ART, MDQ4POP, TUQ1EJX, BEART, S3DPATHR in the last 168 h ours. No results for input(s): SPECSOURCE, PHPOCB, PCO2, PO2, HCO3, TCO2, BEART, SZZZ8HNP in the last 168 hours. Drug of overdose and abuse No results for input(s): ALCOHOL, ACTMN, SALICYLATE in the last 168 hours. No results for input(s): AMPHEQUAL, BARBITURATE, BENZSCR, CANNIBSCR, AMPHETAMINE, METHADSCR , OPIATESCR in the last 168 hours. Urinalysis No results for input(s): GLUCOSEU, WBCUA, RBCUA, SQUAMEPIUA, BACTERIAUA, CULTIF in the last 168 hours. Point of care glucose No results for input(s): POCGLU in the last 168 hours. Micro results more choices using dot micro (below is last 7 days) Microbiology Results (Last 7) Date with Culture/Sensitivity) No results found for the last 168 hours. Radiology results (more choices using dot risresults) Xr Chest Ap Portable Result Date: 07/26/2019 CLINICAL INFORMATION: left crackles. COMPARISON: None available. FINDINGS: Portable frontal chest radiograph Lungs: Mild diffuse prominence of the interstitial lung markings and centr al pulmonary nodule which are. No pleural effusion or pneumothorax. No focal airspace consol idation. Mild low lung volumes. Heart/mediastinum: Mild cardiomegaly. Tortuous course of the aorta with prominent vascular calcifications. Median sternotomy and CABG changes. Bones: No acute osseous abnormality appreciated. Moderate sigmoid curvature of the thoracolumbar spin e. Bony demineralization. Cardiomegaly with mild pulmonary edema. An atypical infectious processes also a considerati on. Dictated and Signed by: Jace Shelton MD Electronically signed: 07/26/2019 6:42 PM Xr Knee Right 3 Vw Result Date: 07/26/2019 CLINICAL INFORMATION: right leg limping. COMPARISON: None available. FINDINGS: 3 views of t he right knee. Bones: Bony demineralization. No fracture or dislocation. No periostitis. Nupur ints: No significant joint effusion. Severe patellofemoral, moderate medial, and mild latera l compartment joint space narrowing. Tricompartment osteophyte formation. Soft tissue: Promi nent vascular calcifications are evident. No acute soft tissue abnormality appreciated. Bony demineralization without acute osseous abnormality. 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 Dictated and Signed by: Jace Shelton MD Electronically signed: 07/26/2019 6:43 PM Reference. This is NOT part of the patient's formal assessment section. In the assessment or plan section of notes the author may date some of the subsections with a number such as "" or "23" to indicate the date of that entry or event. In the example below the 1st line is the original entry and the subsequent lines indicate flowing updates to the subsection: Example assessment subsection (such as CHF or CP or Pneumonia) 23 Patient is improved today with resolution of symptoms 24th Worse with recurrence of symptoms requiring further testing Portions of this chart may have been created with [employer] voice recognition software. Occasi onal wrong-word or sound-alike substitutions may have occurred due to the inherent moon itations of voice recognition software. Please read the chart carefully and recognize, using context, where these substitutions have occurred documented in th is encounter Plan of Treatment +--------+---------+ + + + | Date | Type | Specialty | Care Team | Description | +--------+---------+ + + + | 11/25/ | Office | Neurology | Duarte Moon MD | | | 2019 | Visit | | [address] | | | | | | [place] | | | | | | [address] | | | | | | | [...] in this encounter Results CBC no Differential (07/28/2019 6:27 AM PDT) + +-------+ + + + [...] | | | | | M/uL | . [facility] | | | | [...] | 0.00 | 0.00 - 0.01 | [facility] | | | nRBC | | K/uL | [facility] | | | | [...] [address] | [place] | [phone] | | [facility] | | [address] | | | - LABORATORY | | | | + + + + + Magnesium (07/28/2019 6:27 AM PDT) + +-------+ + + + | Component | Value | Ref Range | Performed | Pathologist | | | | | At | Signature | + +-------+ + + + | Magnesium | 2.1 | 1.6 - 2.6 mg/dL | [facility] | | | | | | [facility] | | | | | | MEDICAL [...] + | [facility] | [address] | [place] | [phone] | | [facility] | | [address] | | | - LABORATORY | | | | + + + + + Basic Metabolic Panel (07/28/2019 6:27 AM PDT) + + + + + [...] | | | | mmol/L | [facility] | | | | [...] | | | FILTRATION | mL/min/1.73m2 | [facility] | | | [place] | RATE,ESTIMATED | | MEDICAL | | | | mL/min/1.12w5Vtod than | | CENTER - | | [...] | | | | | mg/dL | . [facility] | | | | | | MEDICAL | | | | | | CENTER - | | | | | | LABORATORY | | + + + + + + | BUN/Creatin | 19.5 | | [facility] | | | ine Ratio | | | [facility] | | | | | | MEDICAL [...] [address] | [place] | [phone] | | [facility] | | [address] | | | - LABORATORY | | [...] + +---------+ + + CBC no Differential (07/27/2019 2:41 AM PDT) + + + + + + | Component | Value | Ref Range | Performed | Pathologist | | | | | At | Signature | + + + + + + | WBC | 7.2 | 4.0 - 11.0 K/uL | [facility] | | | | | [facility] | | | | | MEDICAL | | | | | | CENTER - | | | | | | LABORATORY | | + + + + + + | RBC | 4.00 | 3.70 - 5.20 | [facility] | | | | | M/uL | [facility] | | | | | | MEDICAL | | | | | | CENTER - | | | | | | LABORATORY | | + + + + + + | Hemoglobin | 12.3 | 11.5 - 16.0 | [facility] | | | | | g/dL | [facility] | | | | | | MEDICAL | | | | | | CENTER - | | | | | | LABORATORY | | + + + + + + | Hematocrit | 38.2 | 34.0 - 47.0 % | [facility] | | | | | | [facility] | | | | | | MEDICAL | | | | | | CENTER - | | | | | | LABORATORY | | + + + + + + | MCV | 95.5 | 83.0 - 101.0 fL | [facility] | | | | | | [facility] | | | | | | MEDICAL | | | | | | CENTER - | | | | | | LABORATORY | | + + + + + + | MCH | 30.8 | 28.0 - 35.0 pg | [facility] | | | | | | [facility] | | | | | | MEDICAL | | | | | | CENTER - | | | | | | LABORATORY | | + + + + + + | MCHC | 32.2 | 32.0 - 36.0 | [facility] | | | | | g/dL | [facility] | | | | | | MEDICAL | | | | | | CENTER - | | | | | | LABORATORY | | + + + + + + | RDW-CV | 13.2 | <15.0 % | [facility] | | | | | | [facility] | | | | | | MEDICAL | | | | | | CENTER - | | | | | | LABORATORY | | + + + + + + | RDW-SD | 47.0 (H) | 35.1 - 46.3 fL | [facility] | | | | | | [facility] | | | | | | MEDICAL | | | | | | CENTER - | | | | | | LABORATORY | | + + + + + + | Platelet | 184 | 140 - 440 K/uL | [facility] | | | Count | | | [facility] | | | | | | MEDICAL | | | | | | CENTER - | | | | | | LABORATORY | | + + + + + + | MPV | 10.8 | 6.5 - 12.4 fL | [facility] [...] | 0.00 | 0.00 - 0.01 | [facility] | | | nRBC | | K/uL [...] + | [facility] | [address] | [place] | [phone] | | [facility] | | [address] | | | - LABORATORY | | | | + + + + + Magnesium (07/27/2019 2:41 AM PDT) + +-------+ + + + | Component | Value | Ref Range | Performed | Pathologist | | | | | At | Signature | + +-------+ + + + | Magnesium | 2.2 | 1.6 - 2.6 mg/dL | [facility] | [address] | [place] | [phone] | | [facility] | | [address] | | | - LABORATORY | | | | + + + + + Basic Metabolic Panel (07/27/2019 2:41 AM PDT) + + + + + + | Component | Value | Ref Range | Performed | Pathologist | | | | | At | Signature | + + + + + + | Na | 142 | 136 - 145 | [facility] | | | | | mmol/L | [facility] | | | | | | MEDICAL | | | | | | CENTER - | | | | | | LABORATORY | | + + + + + + | K | 3.3 (L) | 3.4 - 5.1 | [facility] | | | | | mmol/L | [facility] | | | | | | MEDICAL | | | | | | CENTER - | | | | | | LABORATORY | | + + + + + + | Cl | 106 | 98 - 107 mmol/L | [facility] [...] + + + | Anion Gap | 4 | 3 - 16 mmol/L | [facility] [...] + + + + | BUN | 10 | 9 - 23 mg/dL | [facility] | | | | | | [facility] | | | | | | MEDICAL | | | | | | CENTER - | | | | | | LABORATORY | | + + + + + + | Creatinine | 0.79 | 0.55 - 1.02 | [facility] | | | | | mg/dL | [facility] | | | | | | MEDICAL | | | | | | CENTER - | | | | | | LABORATORY | | + + + + + + | eGFR if not | >60Comment: GLOMERULAR | >=60 | [facility] | | | | FILTRATION | mL/min/1.73m2 | [facility] | | | [place] | RATE,ESTIMATED | | MEDICAL | | | | mL/min/1.23j7Wpgh than | | CENTER - | | [...] 8.2 (L) | 8.7 - 10.4 | [facility] | | | | | mg/dL | [facility] | | | | | | MEDICAL | | | | | | CENTER - | | | | | | LABORATORY | | + + + + + + | BUN/Creatin | 12.7 | | [facility] | | | ine [...] [address] | [place] | [phone] | | [facility] | | [address] | | | - LABORATORY | | | | + + + + + Troponin I (07/27/2019 2:41 AM PDT) + + + + + + | Component | Value | Ref Range | Performed | Pathologist | | | | | At | Signature | + + + + + + | Troponin I | 0.19 (H)Comment: | <0.06 ng/mL | [facility] | | | | Comment:Reference | | [facility] | | | | Ranges: 0.00-0.06 = [...] | | | | | | [employer] | | | | | [...] + + | Performing | Address | City[facility] | Phone Number | | Organization | | | | + + + + + | [facility] | [address] | [place] | [phone] | | [facility] | | [address] | | | - LABORATORY | | [...] + | [facility] | [address] | [place] | [phone] | | [facility] | | [address] | | | - LABORATORY | | | | + + + + + Troponin I (07/26/2019 8:21 PM PDT) + + + + + + | Component | Value | Ref Range | Performed | Pathologist | | | | | At | Signature | + + + + + + | Troponin I | 0.25 (H)Comment: | <0.06 ng/mL | [facility] | [...] | | | | | | [employer] | | | | | [...] [address] | [place] | [phone] | | [facility] | | [address] | | | - LABORATORY | | [...] + | Victor Hugo, Rad Results In 07/26/2019 6:45 PM PDT | | CLINICAL [...] + + | Javier Gay Results In 07/26/2019 6:47 PM PDT CLINICAL INFORMATION: right [...] + + | Performing | Address | City/State[facility] | Phone Number | | Organization | | | | + +---------+ + + | [facility] | | | | + +---------+ + + Magnesium (07/26/2019 2:50 PM PDT) + +-------+ + + + | Component | Value | Ref Range | Performed | Pathologist | | | | | At | Signature | + +-------+ + + + | Magnesium | 1.9 | 1.6 - 2.6 mg/dL | [facility] | | | | [...] + | [facility] | [address] | [place] | [phone] | | [facility] | | [address] | | | - LABORATORY | | | | + + + + + Basic Metabolic Panel (07/26/2019 2:50 PM PDT) + + + + + + | Component | Value | Ref Range | Performed | Pathologist | | | | | At | Signature | + + + + + + | Na | 144 | 136 - 145 | [facility] | | | | | mmol/L | [facility] | | | | | | MEDICAL | | | | | | CENTER - | | | | | | LABORATORY | | + + + + + + | K | 3.1 (L) | 3.4 - 5.1 | [facility] | | | | | mmol/L | [facility] | | | | | | MEDICAL | | | | | | CENTER - | | | | | | LABORATORY | | + + + + + + | Cl | 107 | 98 - 107 mmol/L | [facility] [...] + + + + | Glucose | 102 | 60 - 106 mg/dL | [facility] | | | | | | [facility] | | | | | | MEDICAL | | | | | | CENTER - | | | | | | LABORATORY | | + + + + + + | BUN | 8 (L) | 9 - 23 mg/dL | [facility] | | | | | | [facility] | | | | | | MEDICAL | | | | | | CENTER - | | | | | | LABORATORY | | + + + + + + | Creatinine | 0.65 | 0.55 - 1.02 | [facility] | | | | | mg/dL | [facility] | | | | | | MEDICAL | | | | | | CENTER - | | | | | | LABORATORY | | + + + + + + | eGFR if not | >60Comment: GLOMERULAR | >=60 | [facility] | | | | FILTRATION | mL/min/1.73m2 | [facility] | | | [place] | RATE,ESTIMATED | | MEDICAL | | | | mL/min/1.75z8Hfrv than | | CENTER - | | [...] + + + + | Calcium | 8.5 (L) | 8.7 - 10.4 | [facility] [...] [address] | [place] | [phone] | | [facility] | | [address] | | | - LABORATORY | | | | + + + + + B Type Natriuretic Peptide (07/26/2019 [...] method in use as of | | [facility] | | | | May 27, 2018. [...] | + + + + + | [facility] | [address] | [place] | [phone] | | [facility] | | [address] | | | - LABORATORY | | | | + + + + + Troponin I (07/26/2019 2:50 PM PDT) + + + + + + | Component | Value | Ref Range | Performed | Pathologist | | | | | At | Signature | + + + + + + | Troponin I | 0.37 (H)Comment: | <0.06 ng/mL | [facility] | | | | Comment:Reference | | [facility] | | | | Ranges: 0.00-0.06 [...] | | | | | | [employer] | | | | | [...] + | [facility] | [address] | [place] | [phone] | | [facility] | | [address] | | | - LABORATORY | | [...] | | | | ERWIN MORALES MD ([id number]) | | | | | | on [...] unspecified provider. | | + + + documented in this encounter Visit Diagnoses + + | Diagnosis | + + | Elevated troponin - Primary Other abnormal blood chemistry | + + | Acute on chronic diastolic congestive heart failure (HCC) Acute on chronic diastolic | | heart failure | + + | Paroxysmal atrial fibrillation (HCC) Atrial fibrillation | + + documented in this encounter Administered Medications + +--------+ +-------+------+------+ | Medication Order | MAR | Action | Dose | Rate | Site | | | Action | Date | | | | + +--------+ +-------+------+------+ | aspirin chewable tablet 81 mg | Given | 07/26/19 | 81 mg | | | | 81 mg, Oral, DAILY, First dose on | | 20 3:54 | | | | | 07/26/19 at 1445 | | PM PDT | | | | + +--------+ +-------+------+------+ +---+---+ | | | +---+---+ + +-------+ +-------+---+---+ | aspirin chewable tablet 81 mg | Given | 07/28/19 | 81 mg | | | | 81 mg, Oral, DAILY, First dose on | | 20 10:16 | | | | | 07/27/19 at 1345 | | AM PDT | | | | + +-------+ +-------+---+---+ +-------+ +-------+---+---+ | Given | 07/27/19 | 81 mg | | | | | 20 3:52 | | | | | | PM PDT | | | | +-------+ +-------+---+---+ +---+---+ | | | +---+---+ + +-------+ +-------+---+---+ | atorvaSTATin (LIPITOR) tablet | Given | 07/27/19 | 40 mg | | | | 40 mg 40 mg, Oral, NIGHTLY, | | 20 9:58 | | | | | First dose on Fri07/26/19 at 2100 | | PM PDT | | | | + +-------+ +-------+---+---+ +-------+ +-------+---+---+ | Given | 07/26/19 | 40 mg | | | | | 20 8:52 | | | | | | PM PDT | | | | +-------+ +-------+---+---+ +---+---+ | | | +---+---+ + +-------+ +-------+---+---+ | clopidogrel (PLAVIX) tablet 75 | Given | 07/28/19 | 75 mg | | | | mg 75 mg, Oral, DAILY, First | | 20 10:15 | | | | | dose on Fri20 at 1730 | | AM PDT | | | | + +-------+ +-------+---+---+ +-------+ +-------+---+---+ | Given | 07/27/19 | 75 mg | | | | | 20 9:41 | | | | | | AM PDT | | | | +-------+ +-------+---+---+ | Given | 07/26/19 | 75 mg | | | | | 20 6:00 | | | | | | PM PDT | | | | +-------+ +-------+---+---+ +---+---+ | | | +---+---+ + +-------+ +-------+---+---+ | furosemide (LASIX) injection 20 | Given | 07/26/19 | 20 mg | | | | mg 20 mg, Intravenous, ONCE, | | 20 10:25 | | | | | 07/26/19 at 2300, For 1 dose, | | PM PDT | | | | | After K and mag are infusing, | | | | | | + +-------+ +-------+---+---+ +---+---+ | | | +---+---+ + +-------+ +-------+---+---+ | furosemide (LASIX) injection 20 | Given | 07/28/19 | 20 mg | | | | mg 20 mg, Intravenous, 2 TIMES | | 20 10:19 | | | | | DAILY 0800 & 1600, First dose on | | AM PDT | | | | | 07/27/19 at 0800 | | | | | | + +-------+ +-------+---+---+ +-------+ +-------+---+---+ | Given | 07/27/19 | 20 mg | | | | | 20 3:52 | | | | | | PM PDT | | | | +-------+ +-------+---+---+ | Given | 07/27/19 | 20 mg | | | | | 20 9:43 | | | | | | AM PDT | | | | +-------+ +-------+---+---+ +---+---+ | | | +---+---+ + +-------+ +--------+---+---+ | levETIRAcetam (KEPPRA) tablet | Given | 07/28/19 | 750 mg | | | | 750 mg 750 mg, Oral, 2 TIMES | | 20 10:16 | | | | | DAILY, First dose on Fri07/26/19 | | AM PDT | | | | | at 2100 | | | | | | + +-------+ +--------+---+---+ +-------+ +--------+---+---+ | Given | 07/27/19 | 750 mg | | | | | 20 9:58 | | | | | | PM PDT | | | | +-------+ +--------+---+---+ | Given | 07/27/19 | 750 mg | | | | | 20 9:41 | | | | | | AM PDT | | | | +-------+ +--------+---+---+ +---+---+ | | | +---+---+ + +-------+ +-------+---+---+ | lisinopril (PRINIVIL, ZESTRIL) | Given | 07/28/19 | 10 mg | | | | tablet 10 mg 10 mg, Oral, DAILY, | | 20 10:16 | | | | | First dose on Fri07/27/19 at | | AM PDT | | | | | 0900 | | | | | | + +-------+ +-------+---+---+ +-------+ +-------+---+---+ | Given | 07/27/19 | 10 mg | | | | | 20 9:41 | | | | | | AM PDT | | | | +-------+ +-------+---+---+ +---+---+ | | | +---+---+ + +-------+ +------+---+---+ | LORazepam (ATIVAN) injection 2 | Given | 07/27/19 | 2 mg | | | | mg 2 mg, Intravenous, EVERY 6 | | 20 1:38 | | | | | HOURS PRN, Seizures, Starting Mon | | AM PDT | | | | | 07/26/19 at 1423 | | | | | | + +-------+ +------+---+---+ + +---+ | | | + +---+ | LORazepam (ATIVAN) tablet 0.5 | | | mg 0.5 mg, Oral, EVERY 6 HOURS | | | PRN, Anxiety, agitation, Starting | | | 07/27/19 at 1820 | | + +---+ | | | + +---+ + +---------+ +-----+ +---+ | magnesium sulfate 2 g/50 mL | New Bag | 07/26/19 | 2 g | 25 mL/hr | | | IVPB 2 g 2 g, Intravenous, | | 20 5:40 | | | | | Administer over 120 Minutes, | | PM PDT | | | | | ONCE, 07/26/19 at 1700, For 1 | | | | | | | dose, Maximum recommended | | | | | | | infusion rate = 1 gram/hour., | | | | | | + +---------+ +-----+ +---+ +---+---+ | | | +---+---+ + +-------+ +-------+---+---+ | metoprolol succinate | Given | 07/28/19 | 25 mg | | | | (TOPROL-XL) ER tablet 25 mg 25 | | 20 10:15 | | | | | mg, Oral, DAILY, First dose on | | AM PDT | | | | | 07/26/19 at 1730, Tablet may | | | | | | | be cut where scored but do not | | | | | | | crush., | | | | | | + +-------+ +-------+---+---+ +-------+ +-------+---+---+ | Given | 07/27/19 | 25 mg | | | | | 20 9:41 | | | | | | AM PDT | | | | +-------+ +-------+---+---+ | Given | 07/26/19 | 25 mg | | | | | 20 6:00 | | | | | | PM PDT | | | | +-------+ +-------+---+---+ + +---+ | | | + +---+ | nitroglycerin (NITROSTAT) SL | | | tablet 0.4 mg 0.4 mg, | | | Sublingual, EVERY 5 MIN PRN, | | | Chest pain, Starting Fri07/26/19 | | | at 1423, Maximum of 3 doses in 15 | | | minutes., | | + +---+ | | | + +---+ + +-------+ +-------+---+---+ | pantoprazole (PROTONIX) DR | Given | 07/28/19 | 40 mg | | | | tablet 40 mg 40 mg, Oral, DAILY | | 20 6:44 | | | | | BEFORE BREAKFAST, First dose on | | AM PDT | | | | | 07/26/19 at 1730, Do not cut | | | | | | | or crush., Indication: GERD | | | | | | + +-------+ +-------+---+---+ +-------+ +-------+---+---+ | Given | 07/27/19 | 40 mg | | | | | 20 6:38 | | | | | | AM PDT | | | | +-------+ +-------+---+---+ | Given | 07/26/19 | 40 mg | | | | | 20 6:00 | | | | | | PM PDT | | | | +-------+ +-------+---+---+ +---+---+ | | | +---+---+ + +---------+ +--------+-------+---+ | potassium chloride 40 mEq in | New Bag | 07/26/19 | 40 mEq | 130 | | | sodium chloride 0.45% 500 mL IVPB | | 20 8:57 | | mL/hr | | | 40 mEq, Intravenous, Administer | | PM PDT | | | | | over 4 Hours, ONCE, 07/26/19 | | | | | | | at 1900, For 1 dose | | | | | | + +---------+ +--------+-------+---+ +---+---+ | | | +---+---+ + +-------+ +--------+---+---+ | regadenoson (LEXISCAN) | Given | 07/27/19 | 0.4 mg | | | | injection 0.4 mg 0.4 mg, | | 20 8:50 | | | | | Intravenous, ONCE PRN, per | | AM PDT | | | | | doctor, Starting 07/27/19 at | | | | | | | 0849, For 1 dose, Give IV push | | | | | | | over 10 seconds, then follow | | | | | | | immediately with 5 mL saline | | | | | | | flush., Nuclear Medicine | | | | | | + +-------+ +--------+---+---+ +---+---+ | | | +---+---+ + +-------+ + +---+---+ | technetium TC-99M sestamibi | Given | 07/27/19 | 11 | | | | (CARDIOLITE) injection 11 | | 20 8:50 | millicur | | | | millicurie 11 millicurie, | | AM PDT | ies | | | | Intravenous, ONCE PRN, Other, | | | | | | | Starting 07/27/19 at 0850, For | | | | | | | 1 dose, Nuclear Medicine | | | | | | + +-------+ + +---+---+ +---+---+ | | | +---+---+ + +-------+ + +---+---+ | technetium TC-99M sestamibi | Given | 07/27/19 | 35.4 | | | | (CARDIOLITE) injection 35.4 | | 20 10:30 | millicur | | | | millicurie 35.4 millicurie, | | AM PDT | ies | | | | Intravenous, ONCE PRN, Other, | | | | | | | Starting Fri07/27/19 at 1030, For | | | | | | | 1 dose, Nuclear Medicine | | | | | | + +-------+ + +---+---+ +---+---+ | | | +---+---+ + +-------+ +--------+---+---+ | thiamine (VITAMIN B-1) tablet | Given | 07/28/19 | 100 mg | | | | 100 mg 100 mg, Oral, DAILY, | | 20 10:15 | | | | | First dose on Fri07/26/19 at | | AM PDT | | | | | 1745, For 3 doses | | | | | | + +-------+ +--------+---+---+ +-------+ +--------+---+---+ | Given | 07/27/19 | 100 mg | | | | | 20 9:43 | | | | | | AM PDT | | | | +-------+ +--------+---+---+ | Given | 04/27/20 | 100 mg | | | | | 20 6:00 | | | | | | PM PDT | | | | +-------+ +--------+---+---+ +---+---+ | | | +---+---+ documented in this encounter
--- OUTSIDE RECORDS SUMMARY | ~2019-09-05 | XMS | Encounter Summary ---
Demographics + + + | Address | [address] | | | [place] [address] | + + + | Home Phone [...] Organization | [facility] | | | and [place] [...] [place] | | | | | [address] | | + + + + + | Najma Xiong | ECON | Unknown | | + + + + + | Hector Mack | ECON | [address] | | | | | [place] | | | | | [address] | | + + + + + Care Team Providers + +------+ + | Care Fire Inspector Name | Role | Phone | + +------+ + PCP | Unavailable | + +------+ + Encounter Details +--------+ + + + + | Date | Type | Department | Care Team | Description | +--------+ + + + + | 11/28/ | Hospital | [facility] | Pramod Enriquez MD | | | 1998 - | Encounter | MED CTR ICU [address] | [address] | | | | | [place], | [place], [place] | | | | | [place] [address] | [address] | | | 1998 | | [phone] | | | +--------+ + + + [...]
--- OUTSIDE RECORDS SUMMARY | ~2019-09-05 | XMS | Encounter Summary ---
Demographics + + + | Address | [address] | | | [place] [address] | + + + | Home Phone [...] Providers + +------+ + | Care Coat Hanger Shaper Machine Operator Name | Role | Phone | + +------+ + | Tuan Chan MD | PCP | | + +------+ + Encounter Details +--------+ + + + + | Date | Type | Department | Care Team | Description | +--------+ + + + + | 03/05/ | Documentati | Preoperative | Dia Gonzalse, | | | 2010 | on | [facility] at | | | | | | [facility] [address] Day | | | | | | Stay [address] | | | | [address] | | | | | | Mailcode: [id number] | | | | | | [address] | | | | | | [address] [place], [place] | | | | | | [address] | | | | | | [phone] | | | +--------+ + + + [...]
--- OUTSIDE RECORDS SUMMARY | ~2019-09-05 | XMS | Encounter Summary ---
Demographics + + + | Address | [address] | | | [place] [address] | + + + | Home Phone [...] [place] | | | | | [address] | | + + + + + Care Team Providers + +------+ + | Care Kettle Skimmer Name | Role | Phone | + [...] | Eugenio Mailcode: [id number] | [address] [place], | | | | | [place], [place] | [place] [address] | | | | | [address] | [phone] | | | | | [phone] | | | +--------+ + + + [...]
--- OUTSIDE RECORDS SUMMARY | ~2019-09-05 | XMS | Encounter Summary ---
Demographics + + + | Address | [address] | | | [place] [address] | + + + | Home Phone [...] + + | Organization | [facility] | | [...] [place] | | | | | [address] | | + + + + + | Najma Xiong | ECON | Unknown | | + + + + + | Hector Mack | ECON | [address] | | | | | [place] | | | | | [address] | | + + + + + Care Team Providers + +------+ + | Care Air Quality Specialist Name | Role | Phone | [...] | Landen Zimmer, | Other | | 2017 | | [facility] | [facility] [employer] [address] | | | | | CLINIC [address] | [place] | | | | | [address] [place], | [place] [address] | | | | | [place] [address] | [phone] | | | | | [phone] | | | +--------+ + + + [...]
--- OUTSIDE RECORDS SUMMARY | ~2019-09-05 | XMS | Encounter Summary ---
Demographics + + + | Address | [address] | | | [place] [address] | + + + | Home Phone [...] | Author | [facility] | | | and [place] | + + + | Organization | [facility] | [...] [place] | | | | | [address] | | + + + + + | Najma Xiong | ECON | Unknown | | + + + + + | Hector Mack | ECON | [address] | | | | | [place] | | | | | [address] | | + + + + + Care Team Providers + +------+ + | Care Solar Fabrication Technician Name | Role | Phone | + +------+ + PCP | Unavailable | + +------+ + Encounter Details +--------+ + + + + | Date | Type | Department | Care Team | Description | +--------+ + + + + | 12/22/ | Hospital | [place] [facility] | Tuan Chan, | | | 2009 | Encounter | [facility] | [address] | | | | | [place] | [facility], [place] | | | | | [place], [place] | [address] | | | | | [address] | [phone] | | | | | [phone] | | | +--------+ + + + [...]
--- OUTSIDE RECORDS SUMMARY | ~2019-09-05 | XMS | Encounter Summary ---
Demographics + + + | Address | [address] | | | [place] [address] | + + + | Home Phone [...] Organization | [facility] | [...] [place] | | | | | [address] | | + + + + + | Najma Xiong | ECON | Unknown | | + + + + + | Hector Mack | ECON | [address] | | | | | [place] | | | | | [address] | | + + + + + Care Team Providers + +------+ + | Care Student Accounts Manager Name | Role | Phone | + +------+ + PCP | Unavailable | + +------+ + Encounter Details +--------+ + + + + | Date | Type | Department | Care Team | Description | +--------+ + + + + | 07/18/ | Hospital | [facility] | | | | 1996 - | Encounter | MED [facility] MED ON[facility] | | | | | | [address] | | | | 07/23/ | | [place] [address] | | | | 1996 | | [phone] | | | +--------+ + + + [...] C[place] | | | | | | [id number] | | | | | | | | +--------+---------+ + + + documented as of this encounter Visit Diagnoses Not on filedocumented in this encounter"
--- OUTSIDE RECORDS SUMMARY | ~2019-09-05 | XMS | Encounter Summary ---
Demographics + + + | Address | [address] | | | [place] [address] | + + + | Home Phone [...] Author | [facility] | | | and [place] | + + + | Organization | [facility] [...] [place] | | | | | [address] | | + + + + + | Najma Xiong | ECON | Unknown | | + + + + + | Hector Mack | ECON | [address] | | | | | [place] | | | | | [address] | | + + + + + Care Team Providers + +------+ + | Care Die Storage Clerk Name | Role | Phone | + +------+ + PCP | Unavailable | + +------+ + Encounter Details +--------+ + + + + | Date | Type | Department | Care Team | Description | +--------+ + + + + | 07/15/ | Hospital | [facility] | Rina Diaz MD | | | 2003 - | [facility] | [address] | | | | | INTENSIVE CARE UNIT | [place] [address] | | | 07/16/ | | [address] | [phone] | | | 2003 | | [place], [place] | | | | | | [address] | | | | | | [phone] | | | +--------+ + + + [...]
--- OUTSIDE RECORDS SUMMARY | ~2019-09-05 | XMS | Encounter Summary ---
Demographics + + + | Address | [address] | | | [place] [address] | + + + | Home Phone [...] [place] | | | | | [address] | | + + + + + Care Team Providers + +------+ + | Care Maintenance Technician 2Nd Shift Name | Role | Phone | [...] | Tuan Gooden MD | [address] | | | | | unclear | [place] | [address] | | | | | etiology | [address] | Mailcode: | | | | | Procedures | [facility] | [facility] | | | | | Consult | 2010 | for Health | | | | | | [place], | and Healing, | | | | | | [place] [address] | [address], | | | | | | Phone: | [address]th Floor | | | | | | [phone] | [place], [place] | | | | | | Fax: | [address] | | | | | | [phone] | Phone: | | | | | | | [phone] | | | | | | | Fax: | | | | | | | [phone] | +--------+--------+ + + + + Encounter Details +--------+---------+ + + + | Date | Type | Department | Care Team | Description | +--------+---------+ + + + | 08/05/ | Office | Dermatology | Khoa Manuel, | Rash and Other | | 2008 | Visit | Medical at [facility] [address] | ,PhD Gloria | Nonspecific Skin | | | | Hermila Kolb | Allergy Asthma | Eruption (Primary | | | | Mailcode: CH16D | Dermatology [address] | Dx) | | | | [facility] | [facility] | | | | | and Healing, | [place] [address] | | | | | [facility] | [phone] | | | | | Floor [place], [place] | | | | | | [address] | | | | | | [phone] | | | +--------+---------+ + + + [...] plan of care. Khoa Manuel MD, PhD Boom Stick Worker, Department of Dermatology [facility] 08/05/2008 Genoveva Galeano Md - 08/05/2008 2:39 [...] skin culture done by Dr. Chan in [facility] prior to her gastric by pass [...] the day. She has never seen a canned food reconditioning inspector. The patient's dermatology intake form was reviewed, signed, and dated. Her relevant PMH, F H, and SH includes: PAST MEDICAL HISTORY: --Gastric bypass in 02/[address] Johnson, used to weigh 450 pounds --s/p abdominoplasty in 06/06 --s/p CABG in 2000 in [facility] --s/p cholecystectomy 35 years ago --s/p [...] Olsen M.D. Resident, Department of Dermatology [facility] [place] documented in th is encounter Plan of Treatment + + +--------+ + + | Name | Type | Priori | Associated Diagnoses | Order Schedule | | | | ty | | | + + +--------+ + + | [place] BIOPSY OF SKIN | Procedures | Routin [...]
--- OUTSIDE RECORDS SUMMARY | ~2019-09-05 | XMS | Encounter Summary ---
Demographics + + + | Address | [address] | | | [place] [address] | + + + | Home Phone [...] [place] | | | | | [address] | | + + + + + Care Team Providers + +------+ + | Care Iso Coordinator Name | Role | Phone | [...] | | | | | | [place] [address] | | | +--------+--------+ + + + [...]
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
--- OUTSIDE RECORDS SUMMARY | ~2019-09-05 | XMS | Encounter Summary ---
Demographics + + + | Address | [address] | | | [place] [address] | + + + | Home Phone [...] + | Organization | [facility] | | | and [...] [place] | | | | | [address] | | + + + + + | Najma Xiong | ECON | Unknown | | + + + + + | Hector Blankenship | ECON | [address] | | | | | [place] | | | | | [address] | | + + + + + Care Team Providers + +------+ + | Care Otolaryngology Nurse Name | Role | Phone | [...] + + | 05/18/ | Hospital | [facility] | Oralia Nevarez | Hypokalemia (Primary | | 2019 - | Encounter | HOSPITAL MED SURG | [address] | Dx); Right hand | | | | [address] | [address] | weakness; 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 Weinstein ([facility]) Primary Discharge Dx: Active Hospital Problems [...] has remained stable on repeat labs. 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 Biop sied at [facility] in Jan 2018. Reviewed by dermatopathologist. Differential based on path findings is Redwater's disease, Ninfa-Ninfa disease, Darier disease and eczematous [...] of urine. They report living in a [facility] trailer in [place] for the winter. APS report being made, however she is going to a s afe living situation at [facility] in [place]. FEN:(albumin <= 3.2 g/dL) VTE Prophylxis low molecular weight heparin Code Status: Full Code Anticipated Date of Discharge: 05/22/[address] conditions, weather. Anticipated Discharge needs: PT, OT and speech therapy. Post-Hospital Care: Assisted Facility in [facility]. She has been accepted by Hanny Killian. [...] Intake/Output Summary (Last 24 hours) at 05/22/18 1050 Last data filed at 05/22/18 0625 Gross [...] pH, Urine 5.5 5.0 - 8.0 Specific [place] 1.025 1.005 - 1.030 Protein, Urine 30 [...] Ct Angiogram Head Neck Result Date: 05/20/[address] [address] NAME: GERMAINE BARBOUR Jesus DATE: 05/20/2018 : 0 1945 PT GENDER: F ROOM: IN Physician: ORALIA NEVAREZ PID3: [id number] CC TO: MR#: PROCEDURE: CTA BRAIN AND [...] thyroid gland. 1 :03 PM at workstation [id number] Pending study results on DC: Unresulted Labs [...] aka: PERCOCET Condition on Discharge: Stable Disposition: Assisted Facility Current Support: Family daughter Najma. Services Ordered: PT, OT, INSTRUCTOR APPAREL MANUFACTURE. See SNF transfer note for details. Follow-up Information SNF adjunct faculty for medical terminology. Discharge Instructions Please continue: - physical therapy [...] this encounter Progress Notes Trinidad Miranda, Health High School Music Instructor - 05/21/2018 2:43 PM PSTTransport arrangements madrigal ve been finalized. Pharmacy for scripts have been finalized. Family has been notified. Queenie ctronically signed by Trinidad Miranda, Health High School Music Instructor at 05/21/2018 2:44 PM Oralia Quevedo MD [...] on trunk, back, palms. Biop sied at [facility] in Jan 2018. Reviewed by dermatopathologist. Differential based on path findings is Redwater's disease, Ninfa-Ninfa disease, Darier disease and eczematous [...] PT, OT and speech therapy. Post-Hospital Care: Assisted Facility in [facility]. She has been accepted by Hanny Killian. [...] Ct Angiogram Head Neck Result Date: 05/20/[address] [address] NAME: GERMAINE BARBOUR DATE: 05/20/2018 : 0 1945 PT GENDER: F ROOM: IN Physician: ORALIA ROQUE PID3: [id number] CC TO: MR#: PROCEDURE: CTA BRAIN AND [...] thyroid gland. 1 :03 PM at workstation [id number] Documentation assistance provided by Jolie Pimentel, medical student. I repeated all eleme nts of the history and physical and have edited all parts of the note to reflect my evaluati on. Electronically signed: Oralia Nevarez MD 05/21/2018 13:18 DATE OF SERVICE: 05/21/2018 Trinidad Palacios, Health High School Music Instructor - 05/20/2018 3:[address] [place] has agreed to accept Germaine. Working on transport options. [facility] transport is working on transport for Friday by 11. Trinidad Palacios, Health Unit Coordin ator - 05/20/2018 10:55 AM PSTSpoke with Najma Xiong-daughter. She has made preliminary arr angements for Germaine to be placed at [facility] in [place]. Will make phone contact with them today. Faxed referral notes to music orchestrator for review. El ectronically signed by Trinidad Miranda, Health High School Music Instructor at 05/20/2018 2:26 PM PSTAlexandria castrejon, Oralia [...] on trunk, back, palms. biop sied at [facility] in Jan 2018. Reviewed by dermatopathologist. Differential based on path findings is Redwater's disease, Ninfa-Ninfa disease, Darier disease and eczematous [...] resources, housing resources, CHW support. Post-Hospital Care: Assisted Facility vs SENIOR CARE depending on improvement in cognitive i mpairment. Subjective Germaine pulled out IV yesterday and it was left out and ceftriaxone given IM. Daughter Elana vu who lives in [place] has called and is interested in bringing [...] Ct Head Wo Contrast Result Date: 05/18/2018 [place] [address] NAME: GERMAINE BARBOUR Jesus DATE: 05/18/2018 : 0 1945 PT GENDER: F ROOM: ER Physician: ORALIA NEVAREZ PID3: [id number] CC TO: MR#: This report includes an [...] evaluation with MRI if indicated. at workstation Angie's [id number] ADDENDUM #1 Add communi cation: Communication: Relayed findings to Dr. Nevarez on 05/18/18 at 4459. Gave her contact info for Dr. Nieves./hs Transcribed by: HS at 05/18/2018 5:37 PM at workstation Angie's [id number] Xr Chest Ap Portable Result Date: 05/18/[address] [address] NAME: ANTONIETTA BLANKENSHIPGERMAINE DATE: 05/18/2018 : 0 1945 PT GENDER: F ROOM: ER Physician: ORALIA NEVAREZ PID3: [id number] CC TO: MR#: PROCEDURE: AP PORTABLE CHEST [...] evidence of acute cardiopulmonary disease. at workstation [id number] Vas Carotid Duplex Bilateral Result Date: 05/19/[address] [address] NAME: GERMAINE BARBOUR DATE: 05/19/2018 : 0 1945 PT GENDER: F ROOM: IN Physician: ORALIA NEVAREZ PID3: [id number] CC TO: MR#: PROCEDURE: ULTRASOUND BILATERAL CAROTID [...] Right 3 + Vw Result Date: 05/18/2018 [place] [address] NAME: GERMAINE BARBOUR DATE: 05/18/2018 : 0 1945 PT GENDER: F ROOM: ER Physician: ORALIA NEVAREZ PID3: [id number] CC TO: MR#: PROCEDURE: RIGHT HAND - [...] sof t tissue swelling. at workstat ion [id number] Electronically signed: Oralia Nevarez MD 05/20/2018 10:37 [...] on trunk, back, palms. biop sied at [facility] in Jan 2018. Reviewed by dermatopathologist. Differential based on path findings is Redwater's disease, Ninfa-Ninfa disease, Darier disease and eczematous process. - plan to consult [facility] derm by phone prior to discharge. [...] and Trey araujo will take shuttle to [place] to take care of their dog. Review [...] in right hand but not light touch. [place] ed to person but not place or [...] pH, Urine 5.5 5.0 - 8.0 Specific [place] 1.025 1.005 - 1.030 Protein, Urine 30 [...] Ct Head Wo Contrast Result Date: 05/18/[address] [address] NAME: ANTONIETTA BLANKENSHIP GERMAINE Jesus DATE: 05/18/2018 : 0 1945 PT GENDER: F ROOM: ER Physician: ORALIA NEVAREZ PID3: [id number] CC TO: MR#: This report includes an [...] evaluation with MRI if indicated. at workstation [id number] ADDENDUM #1 Add communi cation: Communication: Relayed findings to Dr. Nevarez on 05/18/18 at 1736. Gave her contact info for Dr. Nieves./hs Transcribed by: HS at 05/18/2018 5:37 PM at workstation [id number] Xr Chest Ap Portable Result Date: 05/18/2018 [place] [address] NAME: GERMAINE BARBOUR DATE: 05/18/2018 : 0 1945 PT GENDER: F ROOM: ER Physician: ORALIA NEVAREZ PID3: [id number] CC TO: MR#: PROCEDURE: AP PORTABLE CHEST [...] evidence of acute cardiopulmonary disease. at workstation [id number] Xr Hand Right 3 + Vw Result Date: 05/18/[address] [address] NAME: GERMAINE BARBOUR DATE: 05/18/2018 : 0 1945 PT GENDER: F ROOM: ER Physician: ORALIA NEVAREZ PID3: [id number] CC TO: MR#: PROCEDURE: RIGHT HAND - [...] calcifications and sof t tissue swelling. at [employer] [facility]-[id number] Electronically signed: Oralia Nevarez MD 05/19/2018 12:47 [...] D?MRN: | | | | | | [id number] | | | [id number] | | | riteri | | | [...] | | | St. | | | Challenge | | | y | | | [...] | | | at | | | [phone] | | | [phone] | | | .These | | | [...] | | | St. | | | Challenge | | | y | | | [...] | | | St. | | | Challenge | | | y H. | | [...] | | | St. | | | Challenge | | | y H. | | [...] | | | St. | | | Challenge | | | y H. | | [...] | | | St. | | | Challenge | | | y H. | | [...] | + + + + + | [facility] | [address] | [place], [place] | [phone] | | HOSPITAL LABORATORY | | [address] | | + + + + + Calcium, Ionized (05/22/2018 6:50 AM PST) + + + + + + | Component | Value | Ref Range | Performed | Pathologist | | | | | At | Signature | + + + + + + | pH | 7.52 (H) | 7.31 - 7.41 | [facility] | | | | | | [facility] | | | | | | HOSPITAL | | | | | | LABORATORY | | + + + + + + | Calcium, | 1.06 (L)Comment: CA ION: | 1.11 - 1.30 | [facility] | | | Ionized | L | [...] | + + + + + | [facility] | [address] | [place] | [phone] | | HOSPITAL LABORATORY | | [address] | | + + + + + [...] 13 | 5 - 26 mg/dL | [facility] | | | | | | [facility] | | | | | | HOSPITAL | | | | | | LABORATORY | | + + + + + + | Creatinine | 0.76 | >0.60-<1.30 | [facility] | | | | | mg/dL | [facility] | | | | | | HOSPITAL | | | | | | LABORATORY | | + + + + + + | eGFR if not | >60Comment: GLOMERULAR | >=60 | [facility] | | | | FILTRATION | mL/min/1.73m2 | [facility] | | | [place] | RATE,ESTIMATED | | HOSPITAL | | | | mL/min/1.18c4Vtxq than | | LABORATORY | | | [...] | + + + + + | [facility] | [address] | [place], [place] | [phone] | | HOSPITAL LABORATORY | | [address] | | + + + + + CT Angiogram Head Neck (05/20/2018 12:07 PM PST) + + | Specimen | + + | | + + + + + | Narrative | Performed At | + + + | [address] | [facility] | | [place], [place] [address] | | | NAME: ANTONIETTA BLANKENSHIPGERMAINE SHEARER DATE: 05/20/2018 : | | | 1945 PT GENDER: F ROOM: IN Physician: ORALIA | | | ROQUE PID3: [id number] CC TO: MR#: | | | PROCEDURE: [...] | | 05/20/2018 1:03 PM at workstation [id number] | | + + + + + | Procedure Note | + + | Victor Hugo, Rad Results In - 05/20/2018 1:15 PM PST [facility] | | [address] | | [place], [place] [address] | | | | | | NAME: GERMAINE BARBOUR DATE: 05/20/2018 | | : 1945 PT GENDER: F ROOM: IN | | Physician: ORALIA NEVAREZ PID3: [id number] | | CC TO: MR#: | | [...] Testing Performed at: [facility] [place] [facility] CLIA: [id number] - [address] | REFERENCE LAB | | [place] [address] | [facility] | + + + + + + + + | Performing | Address | City/State/Zipcode | Phone Number | | Organization | | | | + + + + + | REFERENCE LAB | [address] | [place], [place] | [phone] | | [facility] | | [address] | | + + + + + | REFERENCE LAB | [address] | [place], [place] | [phone] | | [facility] | | [address] | | + + + + + Ferritin (05/20/2018 11:20 AM PST) + +-------+ + + + | Component | Value | Ref Range | Performed | Pathologist | | | | | At | Signature | + +-------+ + + + | FERRITIN | 11 | 5 - 93 ng/mL | [facility] | | | | | | [facility] | | | | | | HOSPITAL | | | | | | LABORATORY | | + +-------+ + + + + + | Specimen | + + | Blood | + + + + + + + | Performing | Address | City/State/Zipcode | Phone Number | | Organization | | | | + + + + + | [facility] | [address] | [place], [place] | [phone] | | HOSPITAL LABORATORY | | [address] | | + + + + + [...] | + + + + + | [facility] | [address] | [place], [place] | [phone] | | HOSPITAL LABORATORY | | [address] | | + + + + + Magnesium (05/20/2018 6:50 AM PST) + +-------+ + + + | Component | Value | Ref Range | Performed | Pathologist | | | | | At | Signature | + +-------+ + + + | Magnesium | 1.9 | 1.8 - 2.4 mg/dL | [facility] | | | | | | [...] | + + + + + | [facility] | [address] | [place], [place] | [phone] | | HOSPITAL LABORATORY | | [address] | | + + + + + [...] 14 | 5 - 26 mg/dL | [facility] | | | | | | [facility] | | | | | | HOSPITAL | | | | | | LABORATORY | | + + + + + + | Creatinine | 0.82 | >0.60-<1.30 | [facility] | | | | | mg/dL | [facility] | | | | | | HOSPITAL | | | | | | LABORATORY | | + + + + + + | eGFR if not | >60Comment: GLOMERULAR | >=60 | [facility] | | | | FILTRATION | mL/min/1.73m2 | [facility] | | | [place] | RATE,ESTIMATED | | HOSPITAL | | | | mL/min/1.85c7Keib than | | LABORATORY | | | [...] | + + + + + | [facility] | [address] | [place], [place] | [phone] | | HOSPITAL LABORATORY | | [address] | | + + + + + [...] | + + + + + | [facility] | [address] | [place], [place] | [phone] | | HOSPITAL LABORATORY | | [address] | | + + + + + VAS Carotid Duplex Bilateral (05/19/2018 8:37 AM PST) + + | Specimen | + + | | + + + + + | Narrative | Performed At | + + + | [facility] [address] [place] [address] | [facility] | | [place], [place] [address] | | | NAME: GERMAINE BARBOUR DATE: 05/19/2018 : | | | 1945 PT GENDER: F ROOM: IN Physician: ORALIA | | | ROQUE PID3: [id number] CC TO: MR#: | | | PROCEDURE: [...] | | 05/19/2018 3:20 PM at workstation [id number] | | + + + + + | Procedure Note | + + | Victor Hugo, Rad Results In - 05/19/2018 3:50 PM [facility] | | [address] [facility] | | [place], [place] [address] | | | | | | NAME: GERMAINE BARBOUR Jesus DATE: 05/19/2018 | | : 1945 PT GENDER: F ROOM: IN | | Physician: ORALIA NEVAREZ PID3: [id number] | | CC TO: MR#: | | [...] | | | at | | workstation [id number] | + + + +---------+ + + [...] | + + + + + | [facility] | [address] | [place] | [phone] | | HOSPITAL LABORATORY | | [address] | | + + + + + [...] 18 | 5 - 26 mg/dL | [facility] | | | | | | COMMUNITY | | | | | | HOSPITAL | | | | | | LABORATORY | | + + + + + + | Creatinine | 0.76 | >0.60-<1.30 | [facility] | | | | | mg/dL | [facility] | | | | | | HOSPITAL | | | | | | LABORATORY | | + + + + + + | eGFR if not | >60Comment: GLOMERULAR | >=60 | [facility] | | | | FILTRATION | mL/min/1.73m2 | [facility] | | | [place] | RATE,ESTIMATED | | HOSPITAL | | | | mL/min/1.90g5Hkte than | | LABORATORY | | | [...] | + + + + + | [facility] | [address] | [place], [place] | [phone] | | HOSPITAL LABORATORY | | [address] | | + + + + + Magnesium (05/19/2018 4:50 AM PST) + +-------+ + + + | Component | Value | Ref Range | Performed | Pathologist | | | | | At | Signature | + +-------+ + + + | Magnesium | 1.8 | 1.8 - 2.4 mg/dL | [facility] | | | | | | [...] | + + + + + | [facility] | [address] | [place], [place] | [phone] | | HOSPITAL LABORATORY | | [address] | | + + + + + [...] | + + + + + | [facility] | [address] | [place], [place] | [phone] | | HOSPITAL LABORATORY | | [address] | | + + + + + XR Hand Right 3 + Vw (05/18/2018 4:55 PM PST) + + | Specimen | + + | | + + + + + | Narrative | Performed At | + + + | [address] | [facility] | | [place], [place] [address] | | | NAME: GERMAINE BARBOUR DATE: 05/18/2018 : | | | 1945 PT GENDER: F ROOM: Physician: ORALIA | | | ROQUE PID3: [id number] CC TO: MR#: | | | PROCEDURE: [...] | | at | | | workstation [id number] | | + + + + + | Procedure Note | + + | Javier Gay Results In - 05/18/2018 5:05 PM [facility] | | [address] [facility] | | [place], [place] [address] | | | | | | NAME: GERMAINE BARBOUR DATE: 05/18/2018 | | : 1945 PT GENDER: F ROOM: ER | | Physician: ORALIA NEVAREZ PID3: [id number] | | CC TO: MR#: | | [...] | | | at workstation | | BUREAU [id number] | | | | | | | [...] Performed At | + + + | [address] | [facility] | | [place], [place] [address] | | | NAME: GERMAINE BARBOUR DATE: 05/18/2018 : | | | 1945 PT GENDER: F ROOM: ER Physician: ORALIA | | | ROQUE PID3: [id number] CC TO: MR#: | | | This [...] | with MRI if indicated. at workstation Angie's [id number] ADDENDUM #1 | | | Add communication: Communication: Relayed findings to | | | Roque on 05/18/18 at 7105. Gave her contact info for Dr. Nieves./earle | | | Transcribed by: EARLE at 05/18/2018 5:37 PM at workstation Angie's [id number] | | + + + + + | Procedure Note | + + | Victor Hugo, Rad Results In - 05/18/2018 6:05 PM [facility] | | [address] [facility] | | [place], [place] [address] | | | | | | NAME: GERMAINE BARBOUR Jesus DATE: 05/18/2018 | | : 1945 PT GENDER: F ROOM: ER | | Physician: ORALIA NEVAREZ PID3: [id number] | | CC TO: MR#: | | [...] | | | at workstation | | [id number] | | | | ADDENDUM #1 | | | | | | Add communication: | | Communication: Relayed findings to Dr. Nevarez on 05/18/18 at 1736. Gave her | | contact info for Dr. Nieves./earle | | | | Transcribed by: EARLE at 05/18/2018 5:37 PM | | | | at workstation | | BUREAU DIRECTOR-[id number] | + + + +---------+ + + [...] | + + + + + | [facility] | [address] | [place], [place] | [phone] | | HOSPITAL LABORATORY | | [address] | | + + + + + [...] - 1.030 | [facility] | | | [place], | | | COMMUNITY | | | [...] | + + + + + | [facility] | [address] | [place], [place] | [phone] | | HOSPITAL LABORATORY | | [address] | | + + + + + [...] | + + + + + | [facility] | [address] | [place], [place] | [phone] | | HOSPITAL LABORATORY | | [address] | | + + + + + XR Chest AP Portable (05/18/2018 3:34 PM PST) + + | Specimen | + + | | + + + + + | Narrative | Performed At | + + + | [facility] [address] [place] [address] | [facility] | | [place], [place] [address] | | | NAME: GERMAINE BARBOUR DATE: 05/18/2018 : | | | 1945 PT GENDER: F ROOM: ER Physician: ORALIA | | | ROQUE PID3: [id number] CC TO: MR#: | | | PROCEDURE: [...] evidence of acute cardiopulmonary disease. at workstation [id number] | | | | | + + + + + | Procedure Note | + + | Victor Hugo, Rad Results In - 05/18/2018 3:50 PM [facility] | | [address] [facility] | | [place], [place] [address] | | | | | | NAME: GERMAINE BARBOUR DATE: 05/18/2018 | | : 1945 PT GENDER: F ROOM: ER | | Physician: ORALIA NEVAREZ PID3: [id number] | | CC TO: MR#: | | [...] | | | at | | workstation [id number] | | | | | | | [...] | + + + + + | [facility] | [address] | [place], [place] | [phone] | | HOSPITAL LABORATORY | | [address] | | + + + + + [...] hours are at higher risk of or [place] at 48 | HOSPITAL | | hours [...] | + + + + + | [facility] | [address] | [place], [place] | [phone] | | HOSPITAL LABORATORY | | [address] | | + + + + + B Type Natriuretic Peptide (05/18/2018 3:11 PM PST) + + + + + + | Component | Value | Ref Range | Performed | Pathologist | | | | | At | Signature | + + + + + + | NT-proBNP | 1,571 (H) | 0 - 125 pg/mL | [facility] | | | | | | [...] | + + + + + | [facility] | [address] | [place], [place] | [phone] | | HOSPITAL LABORATORY | | [address] | | + + + + + [...] | + + + + + | [facility] | [address] | [place], [place] | [phone] | | HOSPITAL LABORATORY | | [address] | | + + + + + [...] | + + + + + | [facility] | [address] | [place], [place] | [phone] | | HOSPITAL LABORATORY | | [address] | | + + + + + Comprehensive Metabolic Panel (05/18/2018 3:11 PM PST) + + + + + + | Component | Value | Ref Range | Performed | Pathologist | | | | | At | Signature | + + + + + + | Na | 146 (H) | 135 - 144 | [facility] | | | | | mmol/L [...] (H) | 70 - 110 mg/dL | [facility] | | | | | | COMM[facility]ITY | | | | | | HOSPITAL | | | | | | LABORATORY | | + + + + + + | BUN | 21 | 5 - 26 mg/dL | [facility] | | | | | | COMMUNITY | | | | | | HOSPITAL | | | | | | LABORATORY | | + + + + + + | Creatinine | 0.98 | >0.60-<1.30 | [facility] | | | | | mg/dL | COMMUNITY | | | | | | HOSPITAL | | | | | | LABORATORY | | + + + + + + | eGFR if not | 56 (L)Comment: | >=60 | [facility] | | | [facility] | GLOMERULAR FILTRATION | mL/min/1.73m2 | [facility] | | | [place] | RATE,ESTIMATED | | HOSPITAL | | | | mL/min/1.20n3Yumq than | | LABORATORY | | | [...] | + + + + + | [facility] | [address] | [place], [place] | [phone] | | HOSPITAL LABORATORY | | [address] | | + + [...] | + + + + + | [facility] | [address] | [place], [place] | [phone] | | HOSPITAL LABORATORY | | [address] | | + + + + + [...] | | | | last modification) on [facility] 05/19/18 | | | | | [...]
--- OUTSIDE RECORDS SUMMARY | ~2019-09-05 | XMS | Encounter Summary ---
Demographics + + + | Address | [address] | | | [place] [address] | + + + | Home Phone [...] [place] | | | | | [address] | | + + + + + Care Team Providers + +------+ + | Care Records Administrator Name | Role | Phone | [...] Dx) | | | | Surgery at [facility] | | | | | | Hermila Kolb | | | | | | Mailcode: [facility] | | | | | | [facility] | | | | | | and Healing, | | | | | | Building [address], | | | | | | Floor [place], [place] | | | | | | [address] | | | | | | [phone] | | | +--------+---------+ + + + [...]
--- OUTSIDE RECORDS SUMMARY | ~2019-09-05 | XMS | Encounter Summary ---
Demographics + + + | Address | [address] | | | [place] [address] | + + + | Home Phone [...] | Organization | [facility] [...] [place] | | | | | [address] | | + + + + + | Najma Xiong | ECON | Unknown | | + + + + + | Hector Mack | ECON | [address] | | | | | [place] | | | | | [address] | | + + + + + Care Team Providers + +------+ + | Care In Home Sales Consultant Name | Role | Phone | + +------+ + PCP | Unavailable | + +------+ + Encounter Details +--------+ + + + + | Date | Type | Department | Care Team | Description | +--------+ + + + + | 07/10/ | Hospital | [facility] | | | | 1996 | Encounter | [facility] | | | | | CENTER [address] | | | | | | [place] | | | | | | [address] | | | | | | [phone] | | | +--------+ + + + [...] CINTRON | | | | | | [phone] | | | | | | | | +--------+---------+ + + + documented as of this encounter Visit Diagnoses Not on filedocumented in this encounter"
--- OUTSIDE RECORDS SUMMARY | ~2019-09-05 | XMS | Encounter Summary ---
Demographics + + + | Address | [address] | | | [place] [address] | + + + | Home Phone [...] Organization | [facility] | [...] [place] | | | | | [address] | | + + + + + | Najma Xiong | ECON | Unknown | | + + + + + | Hector Mack | ECON | [address] | | | | | [place] | | | | | [address] | | + + + + + Care Team Providers + +------+ + | Care Combiner Operator Name | Role | Phone | + +------+ + | Tuan Chan MD | PCP | | + +------+ + Encounter Details +--------+ + + + + | Date | Type | Department | Care Team | Description | +--------+ + + + + | 05/18/ | Hospital | [facility] | Oralia Koo | | | 2019 | Encounter | HOSPITAL GROUND | [address] | | | | | [facility] [address] | [facility] | | | | | [address] | [place], [place] [address] | | | | | [place], [place] | [phone] | | | | | [address] | | | | | | [phone] | | | +--------+ + + + [...]
--- OUTSIDE RECORDS SUMMARY | ~2019-09-05 | XMS | Encounter Summary ---
Demographics + + + | Address | [address] | | | [place] [address] | + + + | Home Phone [...] [facility] | | | and [place] | + + + | Organization | [facility] [...] [place] | | | | | [address] | | + + + + + | Najma Xiong | ECON | Unknown | | + + + + + | Hector Mack | ECON | [address] | | | | | [place] | | | | | [address] | | + + + + + Care Team Providers + +------+ + | Care Scale Manager Name | Role | Phone | + +------+ + PCP | Unavailable | + +------+ + Encounter Details +--------+ + + + + | Date | Type | Department | Care Team | Description | +--------+ + + + + | 12/03/ | Hospital | [facility] | | | | 1997 - | Encounter | MED CTR MED ONC | | | | | | [address] | | | | 12/11/ | | [place] [address] | | | | 1997 | | [phone] | | | +--------+ + + + [...] [place] | | | | | | [id number] | | | | | | | | +--------+---------+ + + + documented as of this encounter Visit Diagnoses Not on filedocumented in this encounter"
--- OUTSIDE RECORDS SUMMARY | ~2019-09-05 | XMS | Encounter Summary ---
Demographics + + + | Address | [address] | | | [place] [address] | + + + | Home Phone [...] [place] | | | | | [address] | | + + + + + Care Team Providers + +------+ + | Care Evp Managing Director Name | Role | Phone | [...] Hernia of | Aysha Crow | s [address] | | | | | unspecified | [address] | Isaiah Muir | | | | | site of | [address] | Mary Becker COMIS | | | | | abdominal | [place], [place] | Hospital, | | | | | cavity | [address] | 10th Floor | | | | | without | | [place], [place] | | | | | mention of | | [address] | | | | | obstruction | | Phone: | | | | | or gangrene | | [phone] | | | | | Procedures | | Fax: | | | | | CT ABDOMEN | | [phone] | | | | | WWO CONTRAST [...] | | | | | | [facility] | | | | | | [facility], | | | | | | Building | | | | | | Floor [place], [place] | | | | | | [address] | | | | | | [phone] | | | +--------+ + + + [...]
--- OUTSIDE RECORDS SUMMARY | ~2019-09-05 | XMS | Encounter Summary ---
Demographics + + + | Address | [address] | | | [place] [address] | + + + | Home Phone [...] [place] | | | | | [address] | | + + + + + Care Team Providers + +------+ + | Care Electric Meter Repairer Helper Name | Role | Phone [...] Progress Notes Interface, Ladle Repairman In - 07/27/2005 2:07 AM PDT [id number] 07/25/2005 07/25/2005 [id number] ARETHA RAE [address] [place] [address] or July 25, 2005 Tuan Chan M.D. [address] [place], [place] RE: GERMAINE CARIAS MR #: [id number] Dear Dr. Chan: Your patient Ms. Germaine Carias returned for an office visit at [facility] on , July 25, 2005. She, as [...] this kind referral. Sincerely, Wes Wolff M.D. [facility] / [id number] / [id number] / [id number] / cc: Papi Johnson M.D. [facility] General Surgery documented i n this encounter Plan of Treatment Not on filedocumented as of this encounter Visit Diagnoses Not on filedocumented in this encounter"
--- OUTSIDE RECORDS SUMMARY | ~2019-09-05 | XMS | Encounter Summary ---
Demographics + + + | Address | [address] | | | [place] [address] | + + + | Home Phone [...] | Organization | [facility] | | | [...] [place] | | | | | [address] | | + + + + + | Najma Xiong | ECON | Unknown | | + + + + + | Hector Mack | ECON | [address] | | | | | [place] | | | | | [address] | | + + + + + Care Team Providers + +------+ + | Care Clerical Manager Name | Role | Phone | [...] + + | 01/08/ | Telephone | [facility] | Liseth Cuevas RN | ED Follow-up | | 2017 | | HOSPITAL EMERGENCY | | | | | | [address] | | | | | | [place], [place] | | | | | | [address] | | | | | | [phone] | | | +--------+ + + + [...] [place] | | | | | | [address] | | | | | | | | +--------+---------+ + + + documented as of this encounter Visit Diagnoses Not on filedocumented in this encounter"
--- OUTSIDE RECORDS SUMMARY | ~2019-09-05 | XMS | Encounter Summary ---
Demographics + + + | Address | [address] | | | [place] [address] | + + + | Home Phone [...] [place] | | | | | [address] | | + + + + + Care Team Providers + +------+ + | Care Information Security Consultant Name | Role | Phone | [...] [id number] | | | | | | [place], [place] | | | | | | [address] | | | | | | [phone] | | | +--------+ + + + [...] + | [place] DEPARTMENT OF | [address] [facility] | [place] [address] | | | PATHOLOGY | [address] | | | + + + + + | [place] DEPARTMENT OF | [address] [facility] | [place] [address] | | | PATHOLOGY | [address] [...] + | [facility] | [facility] | [place] [address] | | | PATHOLOGY | [address] | | | + + + + + | [facility] | [facility] | [place] [address] | | | PATHOLOGY | [address] [...] DEPARTMENT OF | [address] | [place] [address] | | | PATHOLOGY | [address] | | | + + + + + | [facility] DEPARTMENT OF | [address] | [place] [address] | | | PATHOLOGY | [address] [...] OF | [address] | [place] [address] | | | PATHOLOGY | [address] | | | + + + + + | [facility] DEPARTMENT | [address] | [place] [address] | | | PATHOLOGY | [address] [...] | [facility] | [address] [facility] | [place] [address] | | | PATHOLOGY | [address] | | | + + + + + | [facility] | [facility] | [place] [address] | | | PATHOLOGY | [address] [...] DEPARTMENT OF | [address] | [place] [address] | | | PATHOLOGY | [address] | | | + + + + + | [facility] DEPARTMENT OF | [address] | [place] [address] | | | PATHOLOGY | [address] | | | + + + + + BASIC METABOLIC SET (02/08/2006 6:43 AM PST) + +---------+ + + + | Component | Value | Ref Range | Performed | Pathologist | | | | | At | Signature | + +---------+ + + + | GLUCOSE, | 102 | 65 - 110 mg/dL | [facility] | | | PLASMA [...] | [facility] | [address] [facility] | [place] [address] | | | PATHOLOGY | [address] | | | + + + + + | [facility] DEPARTMENT OF | [address] [facility] | [place] [address] | | | PATHOLOGY | [address] [...] + | [facility] | [facility] | [place] [address] | | | PATHOLOGY | [address] | | | + + + + + | [facility] | [address] [place] [address] | [place] [address] | | | PATHOLOGY | [address] [...] DEPARTMENT OF | [address] | [place] [address] | | | PATHOLOGY | [address] | | | + + + + + | [facility] DEPARTMENT | [address] | [place] [address] | | | PATHOLOGY | [address] | | | + + + + + MAGNESIUM, PLASMA (02/08/2006 4:30 AM PST) + +-------+ + + + | Component | Value | Ref Range | Performed | Pathologist | | | | | At | Signature | + +-------+ + + + | MAGNESIUM,P | 2.0 | 1.8 - 2.5 mg/dL | [facility] | | | LASMA | [...] | [facility] | [address] [facility] | [place] [address] | | | PATHOLOGY | [address] | | | + + + + + | [facility] | [address] [facility] | [place] [address] | | | PATHOLOGY | [address] [...] [facility] DEPARTMENT OF | [facility] [address] | [place] [address] | | | PATHOLOGY | [address] | | | + + + + + | [place] DEPARTMENT OF | [facility] [address] | [place] [address] | | | PATHOLOGY | [address] [...] [facility] DEPARTMENT OF | [address] [facility] | [place] [address] | | | PATHOLOGY | [address] | | | + + + + + | [facility] DEPARTMENT OF | [address] | [place] [address] | | | PATHOLOGY | [address] [...] [facility] DEPARTMENT OF | [address] [facility] | [place] [address] | | | PATHOLOGY | [address] | | | + + + + + | [facility] DEPARTMENT OF | [address] [facility] | [place] [address] | | | PATHOLOGY | [address] [...] [facility] DEPARTMENT | [facility] | [place] [address] | | | PATHOLOGY | [address] | | | + + + + + | [facility] DEPARTMENT OF | [facility] | [place] [address] | | | PATHOLOGY | [address] [...] [facility] DEPARTMENT OF | [address] [facility] | [place] [address] | | | PATHOLOGY | [address] | | | + + + + + | [place] DEPARTMENT OF | [address] [facility] | [place] [address] | | | PATHOLOGY | [address] [...] OF | [address] | [place] [address] | | | PATHOLOGY | [address] | | | + + + + + | [facility] DEPARTMENT OF | [address] | [place] [address] | | | PATHOLOGY | [address] | | | + + + + + PHOSPHORUS, PLASMA (02/07/2006 4:30 AM PST) + +-------+ + + + | Component | Value | Ref Range | Performed | Pathologist | | | | | At | Signature | + +-------+ + + + | PHOSPHORUS, | 3.4 | 2.4 - 4.7 mg/dL | [facility] | | | PLASMA [...] | [facility] | [address] [facility] | [place] [address] | | | PATHOLOGY | [address] | | | + + + + + | [facility] | [facility] | [place] [address] | | | PATHOLOGY | [address] [...] [facility] DEPARTMENT OF | [address] | [place] [address] | | | PATHOLOGY | [address] | | | + + + + + | [facility] DEPARTMENT OF | [address] | [place] [address] | | | PATHOLOGY | [address] [...] | 4.4 - 11.0 K/cu | [facility] | | | COUNT | [...] + + + + + | [facility] | [address] [facility] | [place] [address] | | | PATHOLOGY | [address] | | | + + + + + | [facility] DEPARTMENT OF | [address] [facility] | [place] [address] | | | PATHOLOGY | [address] [...] [facility] DEPARTMENT | [address] | [place] [address] | | | PATHOLOGY | [address] | | | + + + + + | [facility] OF | [address] | [place] [address] | | | PATHOLOGY | [address] [...] No. | | | | | | [phone], medical | | | | | | record [phone], ICD-9 | | | | | | [...] + | [facility] | [facility] | [place] [address] | | | PATHOLOGY | [address] | | | + + + + + | [facility] | [facility] | [place] [address] | | | PATHOLOGY | [address] [...] [facility] DEPARTMENT | [address] [facility] | [place] [address] | | | PATHOLOGY | [address] | | | + + + + + | [facility] DEPARTMENT OF | [address] [facility] | [place] [address] | | | PATHOLOGY | [address] [...] [facility] [place] | [address] | [place] [address] | | | PATHOLOGY | [address] | | | + + + + + | [facility] | [facility] [address] | [place] [address] | | | PATHOLOGY | [address] [...] DEPARTMENT OF | [address] | [place] [address] | | | PATHOLOGY | [address] | | | + + + + + | [facility] DEPARTMENT OF | [address] | [place] [address] | | | PATHOLOGY | [address] [...] DEPARTMENT OF | [address] | [place] [address] | | | PATHOLOGY | [address] | | | + + + + + | [facility] DEPARTMENT OF | [address] | [place] [address] | | | PATHOLOGY | [address] [...] | 1.8 - 2.5 mg/dL | [facility] | | | LASMA | [...] DEPARTMENT OF | [address] | [place] [address] | | | PATHOLOGY | [address] | | | + + + + + | [facility] DEPARTMENT OF | [address] | [place] [address] | | | PATHOLOGY | [address] [...] OF | [address] | [place] [address] | | | PATHOLOGY | [address] | | | + + + + + | [facility] DEPARTMENT OF | [address] | [place] [address] | | | PATHOLOGY | [address] [...] + + + + + | [facility] | [address] | [place] [address] | | | PATHOLOGY | [address] | | | + + + + + | [facility] OF | [address] | [place] [address] | | | PATHOLOGY | [address] [...] | [facility] | [address] [facility] | [place] [address] | | | PATHOLOGY | [address] | | | + + + + + | [facility] | [address] [facility] | [place] [address] | | | PATHOLOGY | [address] [...] by | | | | | | [facility] | | | | | | [facility]. | | | | + + + + + + + + | Specimen | + + | | + + + + + + + | Performing | Address | City/State/Zipcode | Phone Number | | Organization | | | | + + + + + | [facility] | [address] | [place] [address] | | | LABORATORY | | | | + + + + + documented in this encounter Visit Diagnoses Not on filedocumented in this encounter"
--- OUTSIDE RECORDS SUMMARY | ~2019-09-05 | XMS | Encounter Summary ---
Demographics + + + | Address | [address] | | | [place] [address] | + + + | Home Phone [...] [place] | | | | | [address] | | + + + + + Care Team Providers + +------+ + | Care Natural Resource Manager Name | Role | Phone | + +------+ + | Tuan Chan MD | PCP | | + +------+ + Encounter Details +--------+ + + + + | Date | Type | Department | Care Team | Description | +--------+ + + + + | 06/25/ | Ancillary | Registration [address] | Wes Wolff MD | | | 2005 | Registratio | [facility] | [address] | | | | n | Eugenio Mailcode: [id number] | [place], [place] | | | | | [place], [place] | [address] | | | | | [address] | [phone] | | | | | [phone] | | | +--------+ + + + [...] DEPARTMENT OF | [address] | [place] [address] | | | PATHOLOGY | [address] | | | + + + + + | [facility] DEPARTMENT | [address] | [place] [address] | | | PATHOLOGY | [address] | | | + + + + + PROTHROMBIN TIME (06/25/2005 9:45 AM PST) + + + + + + | Component | Value | Ref Range | Performed | Pathologist | | | | | At | Signature | + + + + + + | INR | 0.90Comment: | 0.90 - 1.20 INR | [facility] | | | | PT INR Therapeutic [...] + + | [facility] | [address] | [place] [address] | | | PATHOLOGY | [address] | | | + + + + + | [facility] | [address] | [place] [address] | | | PATHOLOGY | [address] [...] Performed At | + + + | [id number] Estimated GFR > 60 mL/min/1.73 sq m if non- | [facility] | | [id number] Estimated GFR > 60 mL/min/1.73 sq m [...] | + + + + + | [facility] DEPARTMENT | [facility] | [place] [address] | | | PATHOLOGY | [address] | | | + + + + + | [facility] | [address] [facility] | [place] [address] | | | PATHOLOGY | [address] | | | + + + + + documented in this encounter Visit Diagnoses Not on filedocumented in this encounter"
--- OUTSIDE RECORDS SUMMARY | ~2019-09-05 | XMS | Encounter Summary ---
Demographics + + + | Address | [address] | | | [place] [address] | + + + | Home Phone [...] [place] | | | | | [address] | | + + + + + Care Team Providers + +------+ + | Care Working Manager Name | Role | Phone | [...] | n | Eug[address] Mailcode: [id number] | [place], | | | | | [place], [place] | [place] [address] | | | | | [address] | [phone] | | | | | [phone] | | | +--------+ + + + [...]
--- OUTSIDE RECORDS SUMMARY | ~2019-09-05 | XMS | Encounter Summary ---
Demographics + + + | Address | [address] | | | [place] [address] | + + + | Home Phone [...] + | Author | [facility] | | | and [place] | + + + | Organization | [facility] | | [...] [place] | | | | | [address] | | + + + + + | Najma Xiong | ECON | Unknown | | + + + + + | Hector Mack | ECON | [address] | | | | | [place] | | | | | [address] | | + + + + + Care Team Providers + +------+ + | Care Oil And Gas Specialist Name | Role | Phone | [...] | [address] | [address] | [address] | | | | [address] | [place], [place] | | | | | [place], [place] | [address] | | | | | [address] | [phone] | | | | | [phone] | | | +--------+ + + + [...] [place] | | | | | | [address] | | | | | | | | +--------+---------+ + + + documented as of this encounter Visit Diagnoses + + | Diagnosis | + + | Thoracic or lumbosacral neuritis or radiculitis, unspecified | + + documented in this encounter"
--- OUTSIDE RECORDS SUMMARY | ~2019-09-05 | XMS | Encounter Summary ---
Demographics + + + | Address | [address] | | | [place] [address] | + + + | Home Phone [...] [place] | | | | | [address] | | + + + + + Care Team Providers + +------+ + | Care Personal Service Workers Name | Role | Phone | + [...]
--- OUTSIDE RECORDS SUMMARY | ~2019-09-05 | XMS | Encounter Summary ---
Demographics + + + | Address | [address] [place] [address] | | | [place] [address] | + + + | Home Phone [...] [place] | | | | | [address] | | + + + + + Care Team Providers + +------+ + | Care Printer Maintainer Name | Role | Phone | [...] | Activity | [address] | [address] | | | | | [address] Mailcode: [id number] | [place], [place] | | | | | [place], [place] | [address] | | | | | [address] | [phone] | | | | | [phone] | | | +--------+ + + + [...]
--- OUTSIDE RECORDS SUMMARY | ~2019-09-05 | XMS | Encounter Summary ---
Demographics + + + | Address | [address] | | | [place] [address] | + + + | Home Phone [...] [place] | | | | | [address] | | + + + + + Care Team Providers + +------+ + | Care School Laboratory Technician Name | Role | Phone [...] [place] | | | | | | [address] | | | +--------+ + + + [...]
--- OUTSIDE RECORDS SUMMARY | ~2019-09-05 | XMS | Encounter Summary ---
Demographics + + + | Address | [address] | | | [place] [address] | + + + | Home Phone [...] + | Organization | [facility] | | | [...] [place] | | | | | [address] | | + + + + + | Najma Xiong | ECON | Unknown | | + + + + + | Hector Mack | ECON | [address] | | | | | [place] | | | | | [address] | | + + + + + Care Team Providers + +------+ + | Care Horticultural Manager Name | Role | Phone | + +------+ + PCP | Unavailable | + +------+ + Encounter Details +--------+ + + + + | Date | Type | Department | Care Team | Description | +--------+ + + + + | 05/15/ | Hospital | [facility] | | | | 2000 - | Encounter | MED CTR GENERIC OP | | | | | | CONV DEPT [address] | | | | 06/20/ | | [place], | | | | 2000 | | [place] [address] | | | | | | [phone] | | | +--------+ + + + [...]
--- OUTSIDE RECORDS SUMMARY | ~2019-09-05 | XMS | Encounter Summary ---
Demographics + + + | Address | [address] | | | [place] [address] | + + + | Home Phone [...] [place] | | | | | [address] | | + + + + + Care Team Providers + +------+ + | Care Caser In Name | Role | Phone | + [...] | | | | CONSULT TO | [facility] | [facility] | | | | | [place] | [place], [place] | CHILDREN | | | | | | [address] | [address] [facility] | | | | | | Phone: | DEACON BYRNE | | | | | | [phone] | [place], | | | | | | Fax: | [place] [address] | | | | | | [phone] | Phone: | | | | | | | [phone] | | | | | | | Fax: | | | | | | | [phone] | +--------+--------+ + + + + Reason [...] 08/18/ | Office | Plastic and | iGa Amin, | Intertrigo (Primary | | 2007 | Visit | Reconstructive | MD [address] | Dx) | | | | Surgery at [facility] [address] | [place], [place] | | | | | [address] | [address] | | | | | Mailcode: [facility] | [phone] | | | | | [facility] | | | | | | and Healing, | | | | | | Building [address], | | | | | | Floor [place], [place] | | | | | | [address] | | | | | | [phone] | | | +--------+---------+ + + + [...] with Dr. Vasquez. She has seen a collection advisor without any change in her rash. She [...] known rash that was seen by a collection advisor, per patient. There was no specific treatab [...]
--- OUTSIDE RECORDS SUMMARY | ~2019-09-05 | XMS | Encounter Summary ---
Demographics + + + | Address | [address] | | | [place] [address] | + + + | Home Phone [...] [place] | | | | | [address] | | + + + + + Care Team Providers + +------+ + | Care Appraiser Boats And Marine Name | Role | Phone | + [...] | | | | | | | [facility] | | | | | | | [address] | | | | | | | [facility] | | | | | | | [facility] | | | | | | | [place], [place] | | | | | | | [address] | | | | | | | Phone: | | | | | | | [phone] | | | | | | | Fax: | | | | | | | [phone] | +--------+--------+ + + + + Encounter Details +--------+---------+ + + + | Date | Type | Department | Care Team | Description | +--------+---------+ + + + | 05/09/ | Office | Preoperative | Steven, | Preop Examination | | 2008 | Visit | Medicine Clinic at | [facility] | (Primary Dx); | | | | [facility] 4th Floor [address] | | Long-Term (Current) | | | | [address] | | Use of | | | | Mailcode: CH4S | | Anticoagulants | | | | [facility] | | | | | | and Healing, | | | | | | Building main campus medical center Floor | | | | | | [place], [place] | | | | | | [address] | | | | | | [phone] | | | +--------+---------+ + + + [...] + + + + + | [facility] | [address] | [place] [address] | | | PATHOLOGY | [address] | | | + + + + + | [facility] | [address] | [place] [address] | | | PATHOLOGY | [address] [...] | [facility] | [address] | [place] [address] | | | PATHOLOGY | [address] | | | + + + + + | [facility] | [address] | [place] [address] | | | PATHOLOGY | [address] [...] Performed At | + + + | [id number] Estimated GFR > 60 mL/min/1.73 sq m if non- | [facility] | | Gu[place] [id number] Estimated GFR > 60 mL/min/1.73 sq m if | DEPARTMENT OF | | [place] GFR is estimated using the MDRD equation [...] + + + + + | [facility] | [address] | [place] [address] | | | PATHOLOGY | [address] | | | + + + + + | [facility] | [address] [place] [address] | [place] [address] | | | PATHOLOGY | [address] [...] | [facility] | [facility] | [place] [address] | | | PATHOLOGY | [address] | | | + + + + + | [facility] DEPARTMENT OF | [address] | [place] [address] | | | PATHOLOGY | [address] [...]
--- OUTSIDE RECORDS SUMMARY | ~2019-09-05 | XMS | Encounter Summary ---
Demographics + + + | Address | [address] | | | [place] [address] | + + + | Home Phone [...] | Author | [facility] | | | and Byronana | + + + | Organization | [facility] [...] [place] | | | | | [address] | | + + + + + | Najma Xiong | ECON | Unknown | | + + + + + | Hector Mack | ECON | [address] | | | | | [place] | | | | | [address] | | + + + + + Care Team Providers + +------+ + | Care Generator Worker Name | Role | Phone | [...] | | | | SUNOSCAR COBIAN | [facility], [place] | | | | | [place], [place] | [address] | | | | | [address] | [phone] | | | | | [phone] | | | +--------+ + + + [...]
--- OUTSIDE RECORDS SUMMARY | ~2019-09-05 | XMS | Encounter Summary ---
Demographics + + + | Address | [address] | | | [place] [address] | + + + | Home Phone [...] | Organization | [facility] | | [...] [place] | | | | | [address] | | + + + + + | Najma Xiong | ECON | Unknown | | + + + + + | Hector Mack | ECON | [address] | | | | | [place] | | | | | [address] | | + + + + + Care Team Providers + +------+ + | Care Lubrication Technician Name | Role | Phone | + +------+ + PCP | Unavailable | + +------+ + Encounter Details +--------+ + + + + | Date | Type | Department | Care Team | Description | +--------+ + + + + | 11/23/ | Hospital | [facility] | Herberth Mayorga | | | 1996 | Encounter | MED CTR XRAY [address] | [address], [address] | | | | | [place] | [place], [place] | | | | | [place] [address] | [address] | | | | | [phone] | [phone] | | | | | | | [...]
--- OUTSIDE RECORDS SUMMARY | ~2019-09-05 | XMS | Encounter Summary ---
Demographics + + + | Address | [address] | | | [place] [address] | + + + | Home Phone | | + + + | Preferred Language | Unknown | + + + | Marital Status | | + + + | Christianity Affiliation | 1077 | + + + | Race | Unknown | + + + | Ethnic Group | Unknown | + + + Author + + + | Author | [facility] | | | and [place]ana | + + + | Organization | [facility] [...] [place] | | | | | [address] | | + + + + + | Najma Xiong | ECON | Unknown | | + + + + + | Hector Mack | ECON | [address] | | | | | [place] | | | | | [address] | | + + + + + Care Team Providers + +------+ + | Care Performing Artist Name | Role | Phone | + +------+ + PCP | Unavailable | + +------+ + Encounter Details +--------+ + + + + | Date | Type | Department | Care Team | Description | +--------+ + + + + | 09/04/ | Hospital | [facility] | Mathew Sofia | Chest pain; NSTEMI | | 2012 - | Encounter | [facility] | MD [address] | (non-ST elevated | | | | CARE FLOOR [address] | myocardial | | 09/06/ | | [address] | [place] [address] | infarction) (HCC); | | 2012 | | [place], [place] | [phone] | CAD (coronary artery | | | | [address] | | disease); HTN | | | | [phone] | | (hypertension) | +--------+ + + [...] Augustine Trejo MD at 09/06/12 1437 Author: Augustine Trejo MD Service: (none) Author Type: Physician Filed: 09/07/12 8872 Date of Service: 09/06/12 143 Status: Signed Linen Room Worker: Augustine Trejo MD (Physician) [facility] Service: Hospitalist Discharge Summary Date of [...] AM UTI + afebrile 1. Non-ST elevation MN evident - cont ASA and plavix and [...] Kidney disease COPD (chronic obstructive pulmonary disease) MN (myocardial infarction) Past Surgical History Procedure Date [...] Follow up: Tuan Chan MD 2010 [address] [address] Schedule an appointment as soon as possible for a visit Mango Naqvi, [address] [place] [address] Schedule an appointment as soon as possible [...] Notes by Francesco Reyna RN at 09/06/12 636 Author: Francesco Reyna RN Service: (none) Author Type: Registered Nurse Filed: 09/06/12 5831 Date of Service: 09/06/121712 Status: Signed Linen Room Worker: Francesco Reyna RN (Registered Nurse) Pt discharged home. Stable. Scripts given. Verbal and written discharge instructions given. Pt states no pain at time of discharge. FRANCESCO REYNARN Augustine Cintron MD - 09/05/2012 2:21 PM PDT Progress Notes by Augustine Trejo MD at 09/05/12 1421 Author: Augustine Trejo MD Service: (none) Author Type: Physician Filed: 09/05/12 1509 Date of Service: 09/05/121420 Status: Signed Linen Room Worker: Augustine Trejo MD (Physician) [facility] Service: Hospitalist Progress Note Hospital Day: [...] disease) ASSESSMENT & PLAN 1. Non-ST elevation MN evident - Dr. Naqvi on consult and [...] 09/05/12902 Date of Service: 09/05/12902 Status: Signed Linen Room Worker: Deedee Cisneros RPH (Pharmacist) Renal Dosing Monitoring: [...] [place] | | | | | | [address] | | | | | | | [...] | Testing performed at | | | [facility];[address];[place] [address] CULTURE | | | >100,000 CFU/ML MIXED GRAM NEGATIVE KRISTEN | | | NO FURTHER WORKUP | | | Testing performed at [facility], | | | [address] [place] [address] REPORT STATUS | | | 09/07/2012 FINAL [...] + + | Historically converted procedure from [facility] environment | EXTERNAL LAB | + [...] + + | Historically converted procedure from [facility] | EXTERNAL LAB | + + + [...] | | with 2.25 x 12 mm Highland balloon followed by stenting with 2.5 x 12 | | | mm Promus Element drug eluting stent. 6. Percutaneous | | | transluminal coronary angioplasty of the distal right coronary | | | artery with 3 x 12 mm Highland balloon followed by stenting with 3.5 | [...] femoral artery and a | | | 6-[place] Islander arterial sheath was placed. A 6-[place] Islander JL4 catheter was then | | | advanced under fluoroscopic guidance and engaged with the ostium of | | | the left main coronary artery, and multiple projections of the left | | | coronary systems were obtained with the use of contrast injections. | | | The catheter was then exchanged to a 6-[place] Islander JR4 catheter, which was | | | advanced under fluoroscopic guidance and engaged with the ostium of | | | the right coronary artery, and multiple projections of the right | | | coronary artery were obtained with the use of contrast injections. | | | The catheter was then exchanged to a 6-[place] Islander pigtail catheter which | | | [...] 3 x 12 | | | mm Highland balloon at the site of the distal [...] with | | 2.25 x 12 mm Highland balloon followed by stenting with 2.5 x 12 mm Promus | | Element drug eluting stent. | | 6. Percutaneous transluminal coronary angioplasty of the distal right | | coronary artery with 3 x 12 mm Highland balloon followed by stenting with | | [...] obtained via right femoral artery and a 6-[place] Islander arterial sheath was | | placed. A 6-[place] Islander JL4 catheter was then advanced under fluoroscopic | | guidance and engaged with the ostium of the left main coronary artery, and | | multiple projections of the left coronary systems were obtained with the | | use of contrast injections. The catheter was then exchanged to a 6-[place] Islander | | JR4 catheter, which was advanced under fluoroscopic guidance and engaged | | with the ostium of the right coronary artery, and multiple projections of | | the right coronary artery were obtained with the use of contrast | | injections. The catheter was then exchanged to a 6-[place] Islander pigtail catheter | | which was [...] then done with 3 x 12 mm Highland balloon | | at the site of [...] | | with 2.25 x 12 mm Highland balloon followed by stenting with 2.5 x 12 | | | mm Promus Element drug eluting stent. 6. Percutaneous | | | transluminal coronary angioplasty of the distal right coronary | | | artery with 3 x 12 mm Highland balloon followed by stenting with 3.5 | [...] femoral artery and a | | | 6-[place] Islander arterial sheath was placed. A 6-[place] Islander JL4 catheter was then | | | advanced under fluoroscopic guidance and engaged with the ostium of | | | the left main coronary artery, and multiple projections of the left | | | coronary systems were obtained with the use of contrast injections. | | | The catheter was then exchanged to a 6-[place] Islander JR4 catheter, which was | | | advanced under fluoroscopic guidance and engaged with the ostium of | | | the right coronary artery, and multiple projections of the right | | | coronary artery were obtained with the use of contrast injections. | | | The catheter was then exchanged to a 6-[place] Islander pigtail catheter which | | | [...] 3 x 12 | | | mm Highland balloon at the site of the distal [...] with | | 2.25 x 12 mm Highland balloon followed by stenting with 2.5 x 12 mm Promus | | Element drug eluting stent. | | 6. Percutaneous transluminal coronary angioplasty of the distal right | | coronary artery with 3 x 12 mm Highland balloon followed by stenting with | | [...] obtained via right femoral artery and a 6-[place] Islander arterial sheath was | | placed. A 6-[place] Islander JL4 catheter was then advanced under fluoroscopic | | guidance and engaged with the ostium of the left main coronary artery, and | | multiple projections of the left coronary systems were obtained with the | | use of contrast injections. The catheter was then exchanged to a 6-[place] Islander | | JR4 catheter, which was advanced under fluoroscopic guidance and engaged | | with the ostium of the right coronary artery, and multiple projections of | | the right coronary artery were obtained with the use of contrast | | injections. The catheter was then exchanged to a 6-[place] Islander pigtail catheter | | which was [...] then done with 3 x 12 mm Highland balloon | | at the site of [...] | | | | | ONLY, -COMPUTER (557), | | | | | | editor farm journal [employer] | | | | | [...] (500), | | | | | | editor farm journal [employer]ER | | | | | [...] of unspecified type of vessel, | | ely shoshone or graft | + + | HTN (hypertension) Unspecified essential hypertension | + + documented in this encounter
--- OUTSIDE RECORDS SUMMARY | ~2019-09-05 | XMS | Encounter Summary ---
Demographics + + + | Address | [address] | | | [place] [address] | + + + | Home Phone [...] | Author | [facility] | | | and Byronana | + + + | Organization | [facility] | | | and [...] [place] | | | | | [address] | | + + + + + | Najma Xiong | ECON | Unknown | | + + + + + | Hector Mack | ECON | [address] | | | | | [place] | | | | | [address] | | + + + + + Care Team Providers + +------+ + | Care Family Service Worker Name | Role | Phone | + +------+ + PCP | Unavailable | + +------+ + Encounter Details +--------+ + + + + | Date | Type | Department | Care Team | Description | +--------+ + + + + | 04[facility]27/ | [facility] | Trevor Hunter | | | 2000 - | Encounter | [facility] | A Jesus Bartholomew | | | | | CARDIAC TELEMETRY | [address] | | | 05/15/ | | [address] | [address] | | | 2000 | | [place] | [id number] | | | | | [address] | | | | | | [phone] | | | +--------+ + + + [...]
--- OUTSIDE RECORDS SUMMARY | ~2019-09-05 | XMS | Encounter Summary ---
Demographics + + + | Address | [address] | | | [place] [address] | + + + | Home Phone [...] [place] | | | | | [address] | | + + + + + Care Team Providers + +------+ + | Care Electrical Software Engineer Name | Role | Phone [...] | n | Eugenio Mailcode: [id number] | [place], [place] | | | | | [place], [place] | [address] | | | | | [address] | [phone] | | | | | [phone] | | | +--------+ + + + [...]
--- OUTSIDE RECORDS SUMMARY | ~2019-09-05 | XMS | Encounter Summary ---
Demographics + + + | Address | [address] | | | [place] [address] | + + + | Home Phone [...] [place] | | | | | [address] | | + + + + + Care Team Providers + +------+ + | Care Gas Turbine Powerplant Mechanic Helper Name | Role | Phone | [...]
--- OUTSIDE RECORDS SUMMARY | ~2019-09-05 | XMS | Encounter Summary ---
Demographics + + + | Address | [address] | | | [place] [address] | + + + | Home Phone [...] [place] | | | | | [address] | | + + + + + Care Team Providers + +------+ + | Care Manager Respiratory Name | Role | Phone | + [...] | | | | | Surgery at [facility] [address] [place], [place] | | | | | [address] | [address] | | | | | Mailcode: [facility] | [phone] | | | | | [facility] | | | | | | and Healing, | | | | | | Building [address] | | | | | | Floor [facility] [place] | | | | | | [address] | | | | | | [phone] | | | +--------+---------+ + + + [...]
--- OUTSIDE RECORDS SUMMARY | ~2019-09-05 | XMS | Encounter Summary ---
Demographics + + + | Address | [address] | | | [place] [address] | + + + | Home Phone [...] [place] | | | | | [address] | | + + + + + Care Team Providers + +------+ + | Care Dressing Room Porter Name | Role | Phone | + [...] [address] | | | | | | [place], [place] | | | | | | [address] | | | +--------+ + + + [...]
--- OUTSIDE RECORDS SUMMARY | ~2019-09-05 | XMS | Encounter Summary ---
Demographics + + + | Address | [address] | | | [place] [address] | + + + | Home Phone [...] [place] bed[place] | | | | | [address] | | + + + + + Care Team Providers + +------+ + | Care Pharmaceutical Plant Operator Name | Role | Phone [...] | | | | Wood | Mary Sancehz [facility] | | | | | | Mary Sanchez | [facility], | | | | | | [place], [place] | 10th Floor | | | | | | [address] | [place], [place] | | | | | | | [address] | | | | | | | Phone: | | | | | | | [phone] | | | | | | | Fax: | | | | | | | [phone] | +--------+--------+ + + + + Diagnostic [...] | CONTRAST | South | Mary Sanchez [facility] | | | | | | [address] | Hospital, | | | | | | [place], [place] | 10th Floor | | | | | | [address] | [place], [place] | | | | | | Phone: | [address] | | | | | | [phone] | Phone: | | | | | | Fax: | [phone] | | | | | | [phone] | Fax: | | | | | | | [phone] | +--------+--------+ + + + + Diagnostic [...] | | | | [address] [place] | | | | | | Mary Sanchez | [facility] | | | | | | [facility] | | | | | | [address] | [place], [place] | | | | | | Phone: | [address] | | | | | | [phone] | Phone: | | | | | | Fax: | [phone] | | | | | | [phone] | Fax: | | | | | | | [phone] | +--------+--------+ + + + + Reason [...] | 04/21/ | Hospital | [facility] [address] | Bryan Adams MD | | | 2012 - | Encounter | [address] | [address] | | | | | [id number] [facility] | [facility] | | | 04/24/ | | [facility], | [place] [address] | | | 2012 | | [place] [address] | [phone] | | | | | [phone] | | | | | | | Chaim Vizcarra MD | | | | | | [address] | | | | | | [facility] | | | | | | [place] [address] | | | | | | [phone] | | | | | | | [...] Derm follow-up closer to her home in [place]. Medications: Discharge Medication List as of 04/24/2012 [...] Attending Physician: MD Tuan Sethi MD Neurology Operator Maintainer Pager [phone] I saw and evaluated the patient. I agree with the findings and the plan of care as yesika lares in the resident s note. Halley Noriega MD Delivery Coordinator Department of Neurology [facility] DEPARTMENT: Neurology Attending - [id number] Place of Service: Date of Service: 04/24/2012 CSN: [id number] Suggestive Modifier: GC - Resident Present Suggested CPT: 78162 - Discharge Day mgmt up to 30 [...] WYNN PA-C [facility] [address] [facility] [address]/[address]2 [place] [address] hPetrona ayala PA - 04/23/2012 10:44 AM [...] HCT 35.4* 03/13/2011 7:46 AM HCT See [facility] 03/11/2011 5:13 PM WBC 6.8 04/23/2012 7:45 AM WBC 6.4 03/13/2011 7:46 AM WBC See [facility] 03/11/2011 5:13 PM PLT 209 04/23/2012 7:45 AM PLT 217 03/13/2011 7:46 AM PLT See [facility] 03/11/2011 5:13 PM CULTURE RESULT (no [...] indicated. Final Rep ort Resulted: 03/13/11 RLAnnabelle ([facility]) [facility] [address] [place] [address] STUDY: SPINE CERVICAL 2 VWS FLEX/EXT 04/22/12 [...] otherw ise intact. Motor 5/5 except LUE finishing range supervisor 4/5 Sensation intact to light touch [...] collar Will continue to follow. FABIO JACOBSEN-C [facility] [address] [address]/[facility] [place] [address] Halley Haddad MD - 04/23/2012 8:37 AM [...] Hari, attending physician, who agrees with the [facility] assessment and plan. VERA COOK MD,MPH Neurology Resident [id number] I performed a history and physical examination [...] it requires holding plavix. Halley Noriega MD Delivery Coordinator Department of Neurology [facility] DEPARTMENT: Neurology Attending - [id number] Place of Service: [facility] Date of Service: 04/22/2013 CSN: [id number] Suggestive Modifier: None Suggested CPT: 24914 - Initial Visit, Level 2 Suggested Diagnosis: [...] Socorro Galdamez MD - 04/22/2012 7:[address] [facility] NEUROSURGERY PROGRESS NOTE Author: SOCORRO [...] Tongue midline Trace left pronator drift Slowed qzuhib-rl-ujuy movements with mild end-point dysmetria 5/5 bilateral [...] Downs MD - 04/22/2012 7:47 AM [facility] Team Pager: [phone] Attendin Attending Cosmetics And Toiletries Salesperson: Primary Service Attending: MD Bryan Espinosa MD [...] 0659 04/22/12 07 - 04/23/12 0659 Shift 1560-2087 [phone] 8125-2281 Daily Total 6872-2415 7201-1679 8866-2795 Daily Total I N T A K [...] plan. Viktoriya Downs MD PGY2 Neurology Pager [phone] documented in t his encounter Plan of [...] [facility] | [address] | [place], [place] | | | DELICIA POINT OF CARE | [address] | [address] | | | TESTS | | | [...] [facility] | [address] | [place] [address] | | | SERVICES, CORE | PARK [...] [facility] | [address] | [place] [address] | | | SERVICES, CORE | PARK [...] [facility] | [address] | [place] [address] | | | MATT, BLU | MARY [...] + + + | AMY [facility] | 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 The patient was seen and examined with | | | the attending physician. We discussed the recommendations listed | | | above. Trevor Sosa M.D. Resident, Department of | | | Dermatology [facility] Attending | | | Physician Attestation I personally interviewed, examined the patient, | | | and discussed management with the resident. I reviewed and edited | | | the resident's note and agree with the documented findings and plan | | | of care. Khoa Manuel MD, PhD Delivery Coordinator, | | | Department of Dermatology [facility] | | | DEPARTMENT: [id number] - DR MED 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 The patient was seen and | | examined with the attending physician. We discussed the recommendations listed | | above.Trevor Sosa M.D.Resident, Department of DermatologyOhio [employer].[facility] | | [place] Attending Physician AttestationI personally interviewed, examined the | | patient, and discussed management with the resident. I reviewed and edited the | | resident's note and agree with the documented findings and plan of care. Khoa Lee | | MD Kaleb, PhDAssistant Professor, Department of DermatologyFormerly [facility] | | [facility] DEPARTMENT: [id number] [facility] Date | | of Service: 04/23/2012 : [id number] Modifier: | | GC Resident Involved: GC Resident InvolvedSuggested CPT: 19868 - Initial, Detailed; Low | | complex [...] home in [place]; would f/u with a physician primary care sports medicine there if not improved on topicals | | | |Please contact us with further questions. The patient was seen and examined with the attend ing physician. We discussed the recommendations listed above. | | | | | |Trevor Sosa M.D. | |Resident, Department of Dermatology | |[facility] | | | |Attending Physician Attestation | |I personally interviewed, examined the patient, and discussed management with the resident. I reviewed and edited the resident's note and agree with the documented findings and plan of care. | | | | | |Khoa Manuel MD, PhD | |Delivery Coordinator, Department of Dermatology | |[facility] | | | |[facility] DEPARTMENT: [id number] [facility] | |Place of Service:[address]- Inpatient | |Date of Service: 04/23/2012 | | | |CSN: [id number] | |Suggested Modifier: GC Resident Involved: GC Resident Involved | |Suggested CPT: 76029 - Initial, Detailed; Low complex 30 min [...] MARNOLAAM | [address] | [place], [place] | | | [facility] | [address] | [address] | | | TESTS | | | [...] + | [facility] AIRPORT - | [address] | [place] [address] | | | [place] | | | [...] + | [facility] - | [address] | [place] [address] | | | [place] | | | [...] + | [facility] - | [address] | [place] [address] | | | [place] | | | [...] [facility] | [address] | [place] | | | MARLEEN NESBITT OF LANCE | [address] | [address] | | | TESTS | | | [...] + + + + + | [facility] AIRPORT - | [address] | [place] [address] | | | [facility] | | | | + + + [...] | prevalent in the general | | [place] | | | | population, and in [...] - | | | | | | [place] | | + + + + + + + + | Specimen | + + | Blood - Blood | + + + + + + + | Performing | Address | City/State/Zipcode | Phone Number | | Organization | | | | + + + + + | [facility] - | [address] | [place] [address] | | | [place] | | | [...] <200: | 180 - 914 pg/mL | [facility] - | | | B12, SERUM | Severe deficiency. If | | AIRPORT - | | | | supplementation does not | | [facility] | | | | correct consider | [...] if | | | | | | [id number] >400: | | | | | | [...] + | [facility] - | [address] | [place] [address] | | | [place] | | | | + + + [...] by | | | | | | Merlin [address] | | | | | | Heron Garcia, [facility],[place] | | | | | | [address] | | | | | | [phone].Retidoclab. | | | | | | Alma [...] [facility] | [address] | [place], [place] | | | UNIV PTH - INTFC | | [address] | | + + + + + [...] | + + + + + | [facility] - | [address] | [place] [address] | | | [place] | | | [...] | + + + + + | [facility] - | [address] | [place] [address] | | | [place] | | | [...] + | [facility] - | [address] | [place] [address] | | | [place] | | | [...] [facility] | [address] | [place] [address] | | | SERVICES, CORE | PARK [...] + + + + + + | INSTRUCTOR WEAVING AB | Negative | Negative | [facility] [...] 7.0-10 | SERVICES, | | >10 Abraham INSTRUCTOR WEAVING AB U/ml <5.0 5.0-10 | SPECIAL IMM [...] | + + + + + | [facility] | [address] | [place] [address] | | | SERVICES, SPECIAL | MARY [...] | + + + + + | [facility] | [address] | [place] [address] | | | SERVICES, SPECIAL | PARK [...] | + + + + + | [facility] | [address] | [place] [address] | | | SERVICES, CORE | MARY [...] | + + + + + | [facility] | [address] | [place] [address] | | | MATT, BLU | MARY [...] | + + + + + | [facility] | [address] | [place] [address] | | | SERVICES, BLU | MARY [...] [facility] | [address] | [place], [place] | | | MARLEEN NESBITT OF CARE | [address] | [address] | | | TESTS | | | [...] P[facility] | [address] | [place], [place] | | | MARLEEN NESBITT OF L[place] | [address] | [address] | | | TESTS | | | [...] back | | | | | | [id number]. Attending | | | | | | [...] [facility] | [address] | [place], [place] | | | MARLEEN NESBITT OF [place] | [address] | [address] | | | TESTS | | | [...] [facility] | [address] | [place] [address] | | | SERVICES, CORE | PARK [...] | + + + + + | [facility] | [address] | [place] [address] | | | SERVICES, CORE | MARY [...] | | | | Final | | [place] | | | | CULTURE RESULT:Multiple | [...] + | [facility] AIR[facility] - | [address] | [place] [address] | | | [place] | | | [...] | + + + + + | [facility] | [address] | [place] [address] | | | SERVICES, BLU | MARY [...] [facility] | [address] | [place], [place] | | | MARLEEN NESBITT OF LANCE | [facility] | [address] | | | TESTS | | | [...] [facility] | [address] | [place] [address] | | | SERVICES, CORE | PARK [...] | + + + + + | [facility] | [address] | [place] [address] | | | MATT, | MARY SANCHEZ [...] LABORATORY | [address] | [place] [address] | | | SERVICES, | [address] [...] | + + + + + | [facility] | [address] | [place] [address] | | | SERVICES, CORE | PARK [...] | + + + + + | [facility] | [address] | [place] [address] | | | SERVICES, CORE | [address]ARK [...] [facility] | [address] | [place] [address] | | | MATT, BLU | MARY [...]
--- OUTSIDE RECORDS SUMMARY | ~2019-09-05 | XMS | Encounter Summary ---
Demographics + + + | Address | [address] | | | [place] [address] | + + + | Home Phone [...] [place] | | | | | [address] | | + + + + + Care Team Providers + +------+ + | Care Developmental Mathematics Instructor Name | Role | Phone | [...] | MD [address] | ([place] ) | | | | Mailcode: CH10U | [place], [place] | | | | | [facility] | [address] | | | | | and [facility], | [phone] | | | | | [facility] | | | | | | Floor [place], [place] | | | | | | [address] | | | | | | [phone] | | | +--------+--------+ + + + [...]
--- OUTSIDE RECORDS SUMMARY | ~2019-09-05 | XMS | Encounter Summary ---
Demographics + + + | Address | [address] | | | [place] [address] | + + + | Home Phone [...] [place] | | | | | [address] | | + + + + + Care Team Providers + +------+ + | Care Inside Sales Account Representative Name | Role | Phone [...] removal) | | | | Surgery at [facility] [address] | | | | | | Hermila Kolb | | | | | | Mailcode: CH5P | | | | | | [facility] | | | | | | and Healing, | | | | | | Building 1 | | | | | | Floor [place], [place] | | | | | | [address] | | | | | | [phone] | | | +--------+ + + + [...]
--- OUTSIDE RECORDS SUMMARY | ~2019-09-05 | XMS | Encounter Summary ---
Demographics + + + | Address | [address] | | | [place] [address] | + + + | Home Phone [...] | Organization | [facility] | [...] [place] | | | | | [address] | | + + + + + | Najma Xiong | ECON | Unknown | | + + + + + | Hector Mack | ECON | [address] | | | | | [place] | | | | | [address] | | + + + + + Care Team Providers + +------+ + | Care Chief Digital Media Officer Name | Role | Phone | [...] | | [facility]OSP[facility] | C, SUPERVISOR BILLPOSTING [address] | skin eruption | | | | CENTER [address] | [address] [place] | (Primary Dx); Severe | | | | DR [place] | [address] | uncontrolled | | | | [address] | | hypertension; | | | | [phone] | | Noncompliance with | | | [...] [place] | | | | | | [address] | | | | | | | [...] D?MRN: | | | | | | [id number] | | | [id number] | | | ecurit | | | [...] | | | St. | | | [place] | | | y | | [...] | | | St. | | | [place] | | | y H. | [...] | | | St. | | | [place] | | | y H. | [...] | | | St. | | | [place] | | | y | | [...]
--- OUTSIDE RECORDS SUMMARY | ~2019-09-05 | XMS | Encounter Summary ---
Demographics + + + | Address | [address] | | | [place] [address] | + + + | Home Phone [...] [place] | | | | | [address] | | + + + + + Care Team Providers + +------+ + | Care Barley Steeper Name | Role | Phone | + [...] | | | | Mailcode: CH10U | [place], [place] | | | | | [facility] | [address] | | | | | and Sonal, | [phone] | | | | | [facility] | | | | | | Floor [place], [place] | | | | | | [address] | | | | | | [phone] | | | +--------+---------+ + + + [...] 1 Years of Education: N/A Occupational History [employer] Social History Main Topics Tobacco Use: Quit [...] [facility] | [address] | [place], [place] | | | DELICIA POINT OF CARE | [address] | [address] | | | TESTS | | | | + + + + + | AMY-POINT OF CARE | [address] | [place], [place] | | | TESTS | [address] | [address] | | + + + + + documented in this encounter Visit Diagnoses + + | Diagnosis | + + | Urolithiasis - Primary Urinary calculus, unspecified | + + documented in this encounter"
--- OUTSIDE RECORDS SUMMARY | ~2019-09-05 | XMS | Encounter Summary ---
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
--- OUTSIDE RECORDS SUMMARY | ~2019-09-05 | XMS | Encounter Summary ---
Demographics + + + | Address | [address] | | | [place] [address] | + + + | Home Phone [...] | Author | [facility] | | | and Byrnoana | + + + | Organization | [facility] [...] [place] | | | | | [address] | | + + + + + | Najma Xiong | ECON | Unknown | | + + + + + | Hector Mack | ECON | [address] | | | | | [place] | | | | | [address] | | + + + + + Care Team Providers + +------+ + | Care Road Contractor Name | Role | Phone | + +------+ + PCP | Unavailable | + +------+ + Encounter Details +--------+ + + + + | Date | Type | Department | Care Team | Description | +--------+ + + + + | 02/15/ | Hospital | [facility] | | | | 1995 - | Encounter | MED CTR ICU [address] | | | | | | [place], | | | | 02/18/ | | [place] [address] | | | | 1995 | | [phone] | | | +--------+ + + + [...] [place] | | | | | | [id number] | | | | | | | | +--------+---------+ + + + documented as of this encounter Visit Diagnoses Not on filedocumented in this encounter"
--- OUTSIDE RECORDS SUMMARY | ~2019-09-05 | XMS | Encounter Summary ---
Demographics + + + | Address | [address] | | | [place] [address] | + + + | Home Phone [...] [place] | | | | | [address] | | + + + + + Care Team Providers + +------+ + | Care Icu Manager Name | Role | Phone | [...] | | Transcribed | | Mary Becker [place], | | | | | | [place] [address] | | | | | | [phone] | | | | | | | [...] Pedraza MD - 06/18/2007 12:00 AM PDT [id number] | | [id number] ARETHA RAE [id number] | | [id number] Date: 06/18/2007 Attending Surgeon: Noe Hdez M.D. | | Stone Unloader(s): Bryan Pedraza M.D. Preoperative Diagnosis(es): Right | | urolithiasis. Postoperative Diagnosis(es): Right urolithiasis. Procedures | | Performed: 1. Rigid cystourethroscopy. 2. Right retrograde pyelogram. 3. Right flexible | | nephroureteroscopy with holmium laser lithotripsy. 4. Right ureteral stent placement | | (6-Burkinan x 24 cm). 5. Fluoroscopy with interpretation. [...] case. After | | surgical pause, a 21-Burkinan rigid cystoscope was inserted into the bladder [...] both proximally and distally. An | | 18-Burkinan Mirza catheter was then placed and filled [...] | | Chey Pedraza M.D. D / [id number] / [id number] / [id number] / | | [id number] Reviewed or Edited By Bryan Pedraza | [...] | | | After surgical pause, a 21-Burkinan rigid cystoscope was inserted into the | [...] both proximally and distally. An | | 18-Burkinan | | Mirza catheter was then placed [...] | | BDD / HS | | [id number] / [id number] / [id number] / [id number] | | | | | | | [...]
--- OUTSIDE RECORDS SUMMARY | ~2019-09-05 | XMS | Encounter Summary ---
Demographics + + + | Address | [address] | | | [place] [address] | + + + | Home Phone [...] | [facility] | [...] [place] | | | | | [address] | | + + + + + | Najma Xiong | ECON | Unknown | | + + + + + | Hector Mack | ECON | [address] | | | | | [place] | | | | | [address] | | + + + + + Care Team Providers + +------+ + | Care Rolling Attendant Name | Role | Phone | + +------+ + PCP | Unavailable | + +------+ + Encounter Details +--------+ + + + + | Date | Type | Department | Care Team | Description | +--------+ + + + + | 02/18/ | Hospital | [facility] | | | | 2004 | Encounter | MED CTR EMERGENCY | | | | | | CENTER [address] | | | | | | [place] | | | | | | [address] | | | | | | [phone] | | | +--------+ + + + [...] [place] | | | | | | [id number] | | | | | | | | +--------+---------+ + + + documented as of this encounter Visit Diagnoses Not on filedocumented in this encounter"
--- OUTSIDE RECORDS SUMMARY | ~2019-09-05 | XMS | Encounter Summary ---
Demographics + + + | Address | [address] | | | [place] [address] | + + + | Home Phone [...] [place] | | | | | [address] | | + + + + + Care Team Providers + +------+ + | Care General Purchasing Agent Name | Role | Phone | [...] | | | | | Procedures | [facility] | [facility] | | | | | Consult | 2010 | for Health | | | | | | [place], | and Healing, | | | | | | [place] [address] | Building [address], | | | | | | Phone: | 16th Floor | | | | | | [phone] | [place], [place] | | | | | | Fax: | [address] | | | | | | [phone] | Phone: | | | | | | | [phone] | | | | | | | Fax: | | | | | | | [phone] | +--------+--------+ + + + + Encounter Details +--------+---------+ + + + | Date | Type | Department | Care Team | Description | +--------+---------+ + + + | 08/05/ | Office | Dermatology | Khoa Manuel, | Rash and Other | | 2008 | Visit | Medical at [facility] | ,PhD Gloria | Nonspecific Skin | | | | Hermila Kolb | Allergy Asthma | Eruption (Primary | | | | Mailcode: CH16D | Dermatology [address] | Dx) | | | | [facility] | [facility] | | | | | and Healing, | [place] [address] | | | | | [facility] | [phone] | | | | | Floor [place], [place] | | | | | | [address] | | | | | | [phone] | | | +--------+---------+ + + + [...] plan of care. Khoa Manuel MD, PhD Soa Engineer, Department of Dermatology [facility] 08/05/2008 Genoveva Galeano Md - [...] culture done by Dr. Chan in [facility] prior to her gastric by pass [...] the day. She has never seen a manager in training. The patient's dermatology intake form was reviewed, signed, and dated. Her relevant PMH, F H, and SH includes: PAST MEDICAL HISTORY: --Gastric bypass in 02/[address] Johnson, used to weigh 450 pounds --s/p abdominoplasty in 06/06 --s/p CABG in 2000 in [facility] --s/p cholecystectomy 35 years ago --s/p appy [...] Natalie Olsen M.D. Resident, Department of Dermatology [facility] and [facility] [place] documented in th is encounter Plan of Treatment + + +--------+ + + | Name | Type | Priori | Associated Diagnoses | Order Schedule | | | | ty | | | + + +--------+ + + | KS BIOPSY OF SKIN | Procedures | Routin [...]
--- OUTSIDE RECORDS SUMMARY | ~2019-09-05 | XMS | Encounter Summary ---
Demographics + + + | Address | [address] | | | [place] [address] | + + + | Home Phone [...] [place] | | | | | [address] | | + + + + + Care Team Providers + +------+ + | Care Beauty Culture Teacher Name | Role | Phone | [...] | | | | | abdominal | [facility] [place] | Mailcode: | | | | | cavity | [address] | [facility] | | | | | without | | for Health | | | | | mention of | | and Healing, | | | | | obstruction | | Building 1, | | | | | or gangrene | | 5th Floor | | | | | | | [place], [place] | | | | | Panniculitis | | [address] | | | | | Procedures | | Phone: | | | | | REQUEST TO | | [phone] | | | | | SURGERY | | | | | | | SHAPER MACHINE HAND | | | +--------+--------+ + + + [...] | | | | | abdominal | [place], [place] | Hospital, | | | | | cavity | [address] | 10th Floor | | | | | without | | [place], [place] | | | | | mention of | | [address] | | | | | obstruction | | Phone: | | | | | or gangrene | | [phone] | | | | | Procedures | | Fax: | | | | | CT ABDOMEN | | [phone] | | | | | WWO CONTRAST [...] | | | Surgery at [facility] | | | | | | Hermila Kolb | | | | | | Mailcode: [facility] | | | | | | [facility] | | | | | | and Healing, | | | | | | Building 1, 5th | | | | | | Floor [place], [place] | | | | | | [address] | | | | | | [phone] | | | +--------+---------+ + + + [...] | | + +---------+ + + | [facility] DEPARTMENT OF | | | | [...]
--- OUTSIDE RECORDS SUMMARY | ~2019-09-05 | XMS | Encounter Summary ---
Demographics + + + | Address | [address] | | | [place] [address] | + + + | Home Phone [...] + | Author | [facility] | | | and [place] | + + + | Organization | [facility] | | | and [place] [...] [place] | | | | | [address] | | + + + + + | Najma Xiong | ECON | Unknown | | + + + + + | Hector Mack | ECON | [address] | | | | | [place] | | | | | [address] | | + + + + + Care Team Providers + +------+ + | Care Assemblies And Installations Inspector Name | Role | Phone | + +------+ + PCP | Unavailable | + +------+ + Encounter Details +--------+ + + + + | Date | Type | Department | Care Team | Description | +--------+ + + + + | 07/03/ | Hospital | [facility] | | | | 1999 | Encounter | MED CTR EMERGENCY | | | | | | CENTER [address] | | | | | | [place] | | | | | | [address] | | | | | | [phone] | | | +--------+ + + + [...] [place] | | | | | | [id number] | | | | | | | | +--------+---------+ + + + documented as of this encounter Visit Diagnoses Not on filedocumented in this encounter"
--- OUTSIDE RECORDS SUMMARY | ~2019-09-05 | XMS | Encounter Summary ---
Demographics + + + | Address | [address] | | | [place] [address] | + + + | Home Phone [...] [place] | | | | | [address] | | + + + + + | Najma Xiong | ECON | Unknown | | + + + + + | Hector Mack | ECON | [address] | | | | | [place] | | | | | [address] | | + + + + + Care Team Providers + +------+ + | Care Senior Php Developer Name | Role | Phone | [...] | 2017 | | HOSPITAL DERMATOLOGY | [address] | | | | | CLINIC [address] | [place] | | | | | DR [place], | [place] [address] | | | | | [place] [address] | [phone] | | | | | [phone] | | | +--------+ + + + [...]
--- OUTSIDE RECORDS SUMMARY | ~2019-09-05 | XMS | Encounter Summary ---
Demographics + + + | Address | [address] | | | [place] [address] | + + + | Home Phone [...] [place] | | | | | [address] | | + + + + + Care Team Providers + +------+ + | Care China And Silverware Salesperson Name | Role | Phone | [...] Dx) | | 2006 | Visit | [place] [address] | | | | | | [place] Mailcode: CH4S | | | | | | [facility] | | | | | | and Healing, | | | | | | Building 1, 6th | | | | | | Floor [place], [place] | | | | | | [address] | | | | | | [phone] | | | +--------+---------+ + + + [...] Performed At | + + + | [id number] Estimated GFR = 60 mL/min/1.73 sq m if non- | [facility] | | [id number] Estimated GFR > 60 mL/min/1.73 sq m [...] DEPARTMENT OF | [address] | [place] [address] | | | PATHOLOGY | [address] | | | + + + + + | [facility] | [address] | [place] [address] | | | PATHOLOGY | [address] [...] | [facility] | [address] | [place] [address] | | | PATHOLOGY | [address] | | | + + + + + | [facility] | [address] | [place] [address] | | | PATHOLOGY | [address] | | | + + + + + documented in this encounter Visit Diagnoses + + | Diagnosis | + + | Obesity - Primary Obesity, unspecified | + + documented in this encounter
--- OUTSIDE RECORDS SUMMARY | ~2019-09-05 | XMS | Encounter Summary ---
Demographics + + + | Address | [address] | | | [place] [address] | + + + | Home Phone [...] Organization | [facility] [...] [place] | | | | | [address] | | + + + + + | Najma Xiong | ECON | Unknown | | + + + + + | Hector Mack | ECON | [address] | | | | | [place] | | | | | [address] | | + + + + + Care Team Providers + +------+ + | Care Supervisor Looping Name | Role | Phone | + [...] + + | 07/25/ | Hospital | [facility] | Julia, Anne-Hwa, MD | Elevated troponin; | | 2019 - | Encounter | MED CTR SURGICAL | [address] | Acute on chronic | | | | [address] | [place] | diastolic congestive | | | | [place] [address] | [address] | heart failure | | 2019 | | [phone] | | ([facility]); Paroxysmal | | | | | | atrial fibrillation | | | | | | ([facility]) | +--------+ + + + + [...] might be differen t from the original. [place] HOSPITALIST DISCHARGE SUMMARY Pt. Name/Age/: Germaine [...] onto the skin Daily. aka: NICODERM nystatin [id number] UNIT/GM powder Notes to patient: For fungal [...] Dementia, COPD, chronic dysphagia, p resented from [facility] ED after seizure missing night Keppra dose, found to have elevate d troponin transferred for ACS workup. #Elevated troponin, likely type 2 MD, less likely ACS #CHF exacerbation #History of CAD s/p stents Cx/RCA with CABG x3 (LAD, Diagonal, and RCA) Previous heart cath 05/2015 showing evidence of occlusion of RCA graft. No chest pain prior to admission. troponins continued to downtrend during admission. Peaked at [facility] at 0.49, downtrend to 0.19. ECHO [...] of mul tiple RCA stents noted on [facility] 2015. D/w cardiology Dr. Alves who read the stress test stati ng these findings are to be expected from her previous [facility] findings and recommended continue d medical management [...] outpatient with her primary care provider and youth care professional #Seizure, postictal. History of seizures Missed keppra dose night prior to admission and presented to [facility] after seizure. N o seizures since [...] stable during admission. #Severe dysphagia Cleared by SAND CONTROL WORKER consult during admission and will continue her [...] severe at the patellofemoral joint. Consults PT/OT SAND CONTROL WORKER PENDING RESULTS: None DISPOSITION AND DISCHARGE INSTRUCTIONS: Follow-up Information Satinder Samson MD. Schedule an appointment as soon as possible for a visit in 1 week. Specialty: Family Medicine Why: Hospital Followup Contact information: [address] [place] [address] Condition: Patient being discharged with condition improved Diet: dysphagia mechanical, 2gm Na, fat/cholesterol modified Greater than 30 minutes were spent on discharge and coordination of post-hospital care. Electronically signed by: Jay Dennis MD, 07/28/2019 11:20 AM [facility] Reference. This is NOT part of the [...] this chart may have been created with Team Apart voice recognition software. Occasi onal wrong-word or [...] cinnamon, pepper, and jaswinder. Date Last Reviewed: 12/29/201619996301-6575 [employer]. [address] [place] [address], [place] [address]. All righ ts reserved. This information is [...] 100% fruit juice Whole-wheat bread or an Serbian muffin. Look for sodium content on Nutrition Facts label s. Low-fat milk or yogurt Unsalted eggs Shredded wheat [place] tortillas Unsalted steamed rice Regular (not instant) [...] vegetables, soups, and fish not labeled as hr-ubiz-gdlid or reduced sodium Packaged gravies and sauces Olives, pickles, and relish Bottled salad dressings For snacks and desserts Yogurt Unsalted, air-popped popcorn Unsalted nuts or seeds Stay away from: Pies and cakes Packaged dessert mixes Pizza Canned and packaged puddings Pretzels, chips, crackers, and nuts unless the label says unsalted Date Last Reviewed: 08/29/201619998146-3269 [employer]. [address] [place] [address]. All righ ts reserved. This information is not intended as a substitute for professional medical care. Always follow your healthcare professional's instructions. AttachmentsThe following attachments cannot be sent through Care Everywhere.Atrial Fibrilla tion, Discharge Instructions for (Serbian)Chest Pain, Noncardiac (Serbian)Heart Failure, Di schasteffge Instructions for (Serbian)Seizure, Recurrent (Adult) (Serbian)documented in this enc ounter Medications at Time [...] might be differen t from the original. [place] HOSPITALIST PROGRESS NOTE Patient: Germaine Mack : 1945: Age: 73 y.o. MedRec: [id number] PCP: Satinder Samson MD Admission date: 07/26/2019 [...] Dementia, COPD, chronic dysphagia, p resented from [facility] ED after seizure missing night Keppra dose, found to have elevate d troponin transferred for ACS workup. Plan #Elevated troponin, likely type 2 MD, less likely ACS #CHF exacerbation #History of CAD s/p stents Cx/RCA with CABG x3 (LAD, Diagonal, and RCA) -previous heart cath 05/2015 showing evidence of occlusion of RCA graft. No chest pain prior to admission. troponins continued to downtrend during admission. Peaked at [facility] at 0.49, downtrend to 0.19. ECHO 07/2018 showed EF 55-60% with concentric hypertrophy. -EKG showed nonspecific t wave abnormalities with inversions V4-V6, avL flattened, no st el evation/depression -Cardiac stress test revealed 75% EF, signs of basal to mid inferior perfusion defect witho ut significant reversibility with known history of occluded RCA graft and history of multipl e RCA stents noted on [facility] 2015. D/w cardiology Dr. Alves who read the stress test stating t hese findings are to be expected from her previous [facility] findings and recommended continued ca dical management and outpatient follow up. -no further troponin trend, no further cardiac workup required inpatient at this time. -continue aspirin, plavix and lipitor -continue lisinopril and metoprolol -BNP 843 on admission: continue lasix 20mg IV bid while inpatient -f/u outpatient cardiology, no requirement to pursue [facility] inpatient at this time. #Seizure, postictal. History [...] agreed. Jay Dennis MD 07/27/2019 1:07 PM [facility] Subjective CC Denies chest pain or shortness [...] 3 mL Nebulization RT Q4H PRN Mirna Dumont MD atorvaSTATin (LIPITOR) tablet 40 mg 40 [...] for input(s): IRON, TIBC, PCTSAT, FERRITIN, TSH, [id number], FOLATE in the last 168 hours. Inflammatory [...] ABG No results for input(s): PHART, PO2ART, GVS5UHX, UYX7RAC, BEART, [id number] in the last 168 h ours. No results for input(s): SPECSOURCE, PHPOCB, PCO2, PO2, HCO3, TCO2, BEART, [id number] in the last 168 hours. Drug of [...] this chart may have been created with Team Apart voice recognition software. Occasi onal wrong-word or [...] [place] | | | | | | [address] | | | | | | | [...] [address] | [place] | [phone] | | [facility] | | [address] | | | - LABORATORY | | [...] | | | | | | [facility] | | | | | [...] + | [facility] | [address] | [place] | [phone] | | [facility] | | [address] | | | - LABORATORY | | [...] | | | FILTRATION | mL/min/1.73m2 | [facility] | | | YEMENI | RATE,ESTIMATED | | MEDICAL | | | | mL/min/1.70h9Jqsx than | | CENTER - | | [...] | ine Ratio | | | [facility] | | | | | [...] [address] | [place] | [phone] | | [facility] | | [address] | | | - LABORATORY | | [...] + | [facility] | [address] | [place] | [phone] | | [facility] | | [address] | | | - LABORATORY | | [...] ST. | [address] | [place] | [phone] | | [facility] | | [address] | | | - LABORATORY | | [...] | 0.79 | 0.55 - 1.02 | [facility] | | | | | mg/dL | [facility] | | | | | | MEDICAL | | | | | | CENTER - | | | | | | LABORATORY | | + + + + + + | eGFR if not | >60Comment: GLOMERULAR | >=60 | [facility] | | | | FILTRATION | mL/min/1.73m2 | [facility] | | | YEMENI | RATE,ESTIMATED | | MEDICAL | | | | mL/min/1.70i3Elnl than | | CENTER - | | [...] 8.2 (L) | 8.7 - 10.4 | [facility] | | | | | mg/dL | [...] [address] | [place] | [phone] | | [facility] | | [address] | | | - LABORATORY | | [...] | | | | Comment:Reference | | [facility] | | | | Ranges: 0.00-0.06 = [...] | | | | | | [employer] | | | | | [...] + + | Performing | Address | City/State[facility] | Phone Number | | Organization | | | | + + + + + | [facility] | [address] | [place] | [phone] | | [facility] | | [address] | | | - LABORATORY | | [...] + | [facility] | [address] | [place] | [phone] | | [facility] | | [address] | | | - LABORATORY | | [...] | | | | | | [employer] | | | | | [...] [address] | [place] | [phone] | | [facility] | | [address] | | | - LABORATORY | | [...] + + | Performing | Address | City/State[facility] | Phone Number | | Organization | [...] + | [facility] | [address] | [place] | [phone] | | [facility] | | [address] | | | - LABORATORY | | [...] | mL/min/1.73m2 | [facility] | | | YEMENI | RATE,ESTIMATED | | MEDICAL | | | | mL/min/1.06t8Lnvl than | | CENTER - | | [...] [address] | [place] | [phone] | | [facility] | | [address] | | | - LABORATORY | | [...] method in use as of | | [facility] | | | | May 27, [...] + | [facility] | [address] | [place] | [phone] | | [facility] | | [address] | | | - LABORATORY | | [...] | | | | | | [employer] | | | | | [...] + | [address] | [address] | [place] | [phone] | | [facility] | | [address] | | | - LABORATORY | | [...] | | | | ERWIN MORALES MD ([id number]) | | | | | | on [...]
[2019-09-05] MEDS ORDERED: ALENDRONATE SOD70 MG PO (09:44)
== END 2019-09-05 12:18 | disposition home or self-care (01) ==
LOC: ED 09:22
DX: S93.401A Sprain of unspecified ligament of right ankle, initial encounter (principal); S90.31XA Contusion of right foot, initial encounter; J44.9 Chronic obstructive pulmonary disease, unspecified; K21.9 Gastro-esophageal reflux disease without esophagitis; I10 Essential (primary) hypertension; F17.200 Nicotine dependence, unspecified, uncomplicated; Z88.5 Allergy status to narcotic agent; Z79.899 Other long term (current) drug therapy; W01.0XXA Fall on same level from slipping, tripping and stumbling without subsequent striking against object, initial encounter
CPT/HCPCS: 73590; 73610; 73630; 99283-25

== ENCOUNTER → 2020-03-11 | Emergency (ER) | payer MEDICARE, OTHER ==
[~2020-03-11] VITALS: Ht 154.9 cm; Wt 57.6 kg
[~2020-03-11] MED LIST changes: +ALENDRONATE SOD70 MG PO; +DONEPEZIL HCL5 MG PO; +GABAPENTIN100 MG PO
== END ==
LOC: ED 18:03
DX: S82.831B Other fracture of upper and lower end of right fibula, initial encounter for open fracture type I or II (principal); S93.04XA Dislocation of right ankle joint, initial encounter; Z20.828 Contact with and (suspected) exposure to other viral communicable diseases; J44.9 Chronic obstructive pulmonary disease, unspecified; I10 Essential (primary) hypertension; K21.9 Gastro-esophageal reflux disease without esophagitis; F03.90 Unspecified dementia, unspecified severity, without behavioral disturbance, psychotic disturbance, mood disturbance, and anxiety; F17.200 Nicotine dependence, unspecified, uncomplicated; Z88.5 Allergy status to narcotic agent; Z79.899 Other long term (current) drug therapy; W18.30XA Fall on same level, unspecified, initial encounter
CPT/HCPCS: 27788; 71045; 73600; 73610; 80053; 85025; 85610; 85730; 99152; 99284-25; C9803; J0690; J2704; J3010; J7030; U0003

== ENCOUNTER 2020-05-16 13:24 | Emergency (ER) | payer MEDICARE, OTHER ==
[~2020-05-16] VITALS: Ht 154.9 cm; Wt 57.6 kg
[2020-05-16] MEDS ORDERED: FEOSOL325 MG PO (13:33)
[2020-05-16] MEDS ORDERED: FUROSEMIDE20 MG PO (13:33)
[2020-05-16] MEDS ORDERED: MALATHION59 ML TOP (13:34)
[2020-05-16] MEDS ORDERED: HYDROCODON-ACE1 EA10 PO (13:35)
[2020-05-16] MEDS ORDERED: DOXYCYCLINE HY100 MG PO (16:11)
== END 2020-05-16 18:18 | disposition home or self-care (01) ==
LOC: ED 13:24
DX: T81.41XA Infection following a procedure, superficial incisional surgical site, initial encounter (principal); U07.1 COVID-19; J44.9 Chronic obstructive pulmonary disease, unspecified; F03.90 Unspecified dementia, unspecified severity, without behavioral disturbance, psychotic disturbance, mood disturbance, and anxiety; K21.9 Gastro-esophageal reflux disease without esophagitis; I10 Essential (primary) hypertension; Z86.73 Personal history of transient ischemic attack (TIA), and cerebral infarction without residual deficits; F17.200 Nicotine dependence, unspecified, uncomplicated; Z88.5 Allergy status to narcotic agent; Z79.899 Other long term (current) drug therapy
CPT/HCPCS: 73590; 80053; 85025; 85651; 86140; 99284-25; C9803; U0003

== ENCOUNTER 2020-05-19 13:35 | Emergency (ER) | payer MEDICARE, OTHER ==
[~2020-05-19] VITALS: Ht 154.9 cm; Wt 57.6 kg
[~2020-05-19 13:35] MED LIST changes: +DOXYCYCLINE HY100 MG PO; +FEOSOL325 MG PO; +HYDROCODON-ACE1 EA10 PO; +MALATHION59 ML TOP
== END 2020-05-19 19:58 | disposition short-term general hospital (02) ==
LOC: ED 13:35
DX: T87.43 Infection of amputation stump, right lower extremity (principal); J44.9 Chronic obstructive pulmonary disease, unspecified; I10 Essential (primary) hypertension; K21.9 Gastro-esophageal reflux disease without esophagitis; F17.200 Nicotine dependence, unspecified, uncomplicated; Z20.822 Contact with and (suspected) exposure to COVID-19; Z89.511 Acquired absence of right leg below knee; Z88.5 Allergy status to narcotic agent; Z79.899 Other long term (current) drug therapy; Z79.02 Long term (current) use of antithrombotics/antiplatelets
CPT/HCPCS: 73590; 80053; 85025; 96365; 99284-25; C9803; J0696; U0003